=== PATIENT | male | born 1940 | race Native Hawaiian/Other Pacific Islander ===

== ENCOUNTER 2017-10-14 20:48 | Inpatient (IN) ==
[2017-11-23] MEDS ORDERED: Heparin Drip 25,000 UNIT/250 ML BAG IV.CONT PRN (15:45)
[2017-11-28] MEDS ORDERED: Haloperidol Inj 5 MG/ML Ampul IV.PUSH PRN (06:45)
[2017-11-28] MEDS ORDERED: HYDROmorphone PF Inj 0.5 MG/0.5 ML Syringe IV.PUSH PRN (06:45)
[2017-12-15] MEDS ORDERED: Warfarin Consult Pharmacy 1 EACH OTHER SCH (10:00)
[2017-12-26] MEDS ORDERED: Heparin 10,000 UNITS/10 ML Vial (for IV use) OTHER PRN (01:00)
[2017-12-26] MEDS: Insulin NovoLIN Regular Correctional Sugar Inj SQ SCH ×3 (06:23→17:33)
[2017-12-26] MEDS ORDERED: levETIRAcetam 500mg/100mL Inj 100 ML IV.SIG SCH (08:00)
[2017-12-26] MEDS: Hydrocortisone Acetate 25 MG Supp RECTAL SCH ×2 (08:54→21:39)
[2017-12-26] MEDS: Methylphenidate HCl 5 MG Tablet PO SCH ×2 (08:55→13:03)
[2017-12-26] MEDS: Chlorhexidine 0.12% Oral Kit 15 ML UDC SWISH-SPIT SCH ×4 (08:56→21:39)
[2017-12-26] MEDS: Polyethylene Glycol 3350 17 GM Packet PO SCH ×2 (08:56→15:40)
[2017-12-26] MEDS: Famotidine 20 MG Tablet PO SCH ×3 (08:57→21:40)
[2017-12-26] MEDS: Collagenase Oint 30 GM Tube TOPICAL SCH ×2 (08:58→15:42)
[2017-12-26 09:56] LABS: Hematocrit 26.3 % (39.0-51.0); Hemoglobin 8.6 gm/dL (13.0-17.0); Mean Corpuscular HGB Conc 32.5 % (32.0-36.0); Mean Corpuscular Hemoglobin 29.1 pg (27.0-34.0); Mean Corpuscular Volume 89.6 fL (80.0-100.0); Mean Platelet Volume 9.9 fL (7.0-11.0); Platelet Count 451 th/mm3 (150-450); Red Blood Count 2.94 mil/mm3 (4.50-5.90); White Blood Count 11.5 th/mm3 (4.0-11.0)
[2017-12-26 10:05] LABS: INR 1.9 Ratio; Prothrombin Time 19.3 sec (9.8-11.6)
[2017-12-26 12:30] LABS: Carbon Dioxide 25.7 meq/L (21.0-32.0); Potassium 5.5 meq/L (3.5-5.1)
[2017-12-26 12:31] LABS: Calcium 7.6 mg/dL (8.5-10.1)
--- NOTE | 2017-12-26 14:58 | P.PN ---
Subjective Interval history: Mr. Glynn had borderline tachycardia (HR ~100) with otherwise stable VS overnight. Patient would not respond to command. Discussed with patient's family; answers questioned regarding MRI imaging of brain and prior EEG Physical Exam Vital signs: Vital Signs 12/26/17 00:00 12/26/17 00:11 12/26/17 04:00 Temperature 98.2 F 98.4 F Pulse Rate 98 H 96 H 105 H Respiratory Rate 17 18 Blood Pressure 113/62 114/76 Pulse Oximetry 97 92 L 12/26/17 08:00 12/26/17 08:19 12/26/17 12:00 Temperature 97.3 F L 98.2 F Pulse Rate 112 H 100 H Respiratory Rate 14 18 Blood Pressure 110/62 114/57 L Pulse Oximetry 93 L 98 96 Intake & Output 12/25/17 12/26/17 12/26/17 18:59 06:59 18:59 Intake Total 0 / 0 100 / 100 Balance 0 / 0 100 / 100 Weight 91.8 kg 90.2 kg Intake: IV 100 / 100 Keppra 500 mg/100 mL Premix 100 100 / 100 ML @ 400 mls/hr IV.SIG Q12H EDE Rx#:[id number] Oral 0 / 0 Other: # Voids 2 # Bowel Movements 1 Narrative: GENERAL: No acute distress. CARDIOVASCULAR: Regular rate and rhythm without murmurs; normal peripheral perfusion RESPIRATORY: T piece in place. Anterior and lateral breath sounds clear. GASTROINTESTINAL: Abdomen soft, non-tender, nondistended. MUSCULOSKELETAL: 1+ pitting lower extremity edema Neuro: Noninteractive. Pupils 2-3mm; symmetric. Patient does not follow-commands SKIN: Sacral wound large; black eschar present. Scrotum is still swollen; some areas of scrotal lesions suggestive of ulceration. Patient also with several other areas of desquamation of superficial skin layers on distal RLE Results - Labs CBC & Chem 7: 12/26/17 07:26 12/26/17 07:26 Labs: Laboratory Results - last 24 hr 12/23/17 12/23/17 12/23/17 06:20 06:20 06:20 WBC 13.5 H RBC 2.73 L Hgb 7.9 L Hct 24.4 L MCV 89.2 MCH 28.8 MCHC 32.3 RDW 21.4 H Plt Count 380 MPV 9.5 PT 14.2 H INR 1.4 APTT 61.1 H D Sodium 133 L Potassium 5.1 Chloride 99 Carbon Dioxide 27.5 Anion Gap 7 BUN 32 H Creatinine 1.24 Estimated GFR 56 L POC Glucose Random Glucose 183 H Calcium 7.3 L* Prot Corrected Calcium 7.8 L Total Protein 6.1 L Stl C.difficile Tox PCR St C. diff Tox Epid 027 12/23/17 12/24/17 12/24/17 10:10 09:02 09:02 WBC 11.8 H RBC 3.18 L Hgb 9.1 L Hct 28.5 L MCV 89.7 MCH 28.6 MCHC 31.9 L RDW 21.1 H Plt Count 416 MPV 9.3 PT INR APTT Sodium 131 L Potassium 5.3 H Chloride 98 Carbon Dioxide 25.2 Anion Gap 8 BUN 34 H Creatinine 1.25 Estimated GFR 56 L POC Glucose Random Glucose 207 H Calcium 7.4 L* Prot Corrected Calcium 7.9 L Total Protein 6.1 L Stl C.difficile Tox PCR NEGATIVE St C. diff Tox Epid 027 PRESUMPTIVE NEGATIVE 12/24/17 12/24/17 12/25/17 09:02 09:02 06:33 WBC RBC Hgb Hct MCV MCH MCHC RDW Plt Count MPV PT 15.6 H 17.0 H INR 1.5 1.7 APTT 51.4 H Sodium Potassium Chloride Carbon Dioxide Anion Gap BUN Creatinine Estimated GFR POC Glucose Random Glucose Calcium Prot Corrected Calcium Total Protein Stl C.difficile Tox PCR St C. diff Tox Epid 027 12/25/17 12/25/17 12/25/17 06:33 06:33 06:33 WBC 11.9 H RBC 2.64 L Hgb 7.8 L Hct 23.6 L MCV 89.4 MCH 29.6 MCHC 33.1 RDW 20.7 H Plt Count 450 MPV 9.7 PT INR APTT 69.2 H D Sodium 132 L Potassium 4.8 Chloride 98 Carbon Dioxide 26.0 Anion Gap 8 BUN 32 H Creatinine 1.13 Estimated GFR 63 L POC Glucose Random Glucose 215 H Calcium 7.5 L Prot Corrected Calcium Total Protein Stl C.difficile Tox PCR St C. diff Tox Epid 027 12/26/17 12/26/17 12/26/17 05:42 07:26 07:26 WBC RBC Hgb Hct MCV MCH MCHC RDW Plt Count MPV PT 19.3 H INR 1.9 APTT 49.3 H Sodium Potassium Chloride Carbon Dioxide Anion Gap BUN Creatinine Estimated GFR POC Glucose 249 H Random Glucose Calcium Prot Corrected Calcium Total Protein Stl C.difficile Tox PCR St C. diff Tox Epid 027 12/26/17 12/26/17 12/26/17 07:26 07:26 13:07 WBC 11.5 H RBC 2.94 L Hgb 8.6 L Hct 26.3 L MCV 89.6 MCH 29.1 MCHC 32.5 RDW 21.0 H Plt Count 451 H MPV 9.9 PT INR APTT Sodium 131 L Potassium 5.5 H Chloride 96 L Carbon Dioxide 25.7 Anion Gap 9 BUN 32 H Creatinine 1.18 Estimated GFR 60 L POC Glucose 279 H Random Glucose 200 H Calcium 7.6 L Prot Corrected Calcium Total Protein Stl C.difficile Tox PCR St C. diff Tox Epid 027 - Imaging Imaging: EEG 12/25- diffuse theta slowing consistent with mild to moderate diffuse encephalopathy; no focal abnormalities. No seizure activity seen Brain MRI 12/24- 1. Persistent T2 prolongation and restricted diffusion involving the left corpus callosum and splenium, with no new findings. Procedures: 11/09/17 arterial line placement 11/09/17 endotracheal intubation 11/18/17 endotracheal intubation 11/20/17 EGD 12/02/17 EGD with PEG tube placement 12/02/17 percutaneous tracheostomy Assessment and Plan - Assessment (1) Encephalopathy Code(s): G93.40 - Encephalopathy, unspecified Status: Acute (2) CVA (cerebral vascular accident) Code(s): I63.9 - Cerebral infarction, unspecified Status: Acute (3) Wound of sacral region Code(s): S31.000A - Unspecified open wound of lower back and pelvis without penetration into retroperitoneum, initial encounter Status: Acute (4) NSTEMI (non-ST elevated myocardial infarction) Code(s): I21.4 - Non-ST elevation (NSTEMI) myocardial infarction Status: Resolved (5) Anemia Code(s): D64.9 - Anemia, unspecified Status: Acute (6) Respiratory failure with hypoxia and hypercapnia Code(s): J96.91 - Respiratory failure, unspecified with hypoxia; J96.92 - Respiratory failure, unspecified with hypercapnia Status: Resolved (7) Optic neuritis Code(s): H46.9 - Unspecified optic neuritis Status: Resolved - Plan In summary this is a 77-year-old male with a prolonged hospitalization for optic neuritis, ESBL E. coli UTI, sepsis, and STEMI, acute GI bleed, CVA status post systemic TPA, seizures, and acute hypoxic respiratory failure. Patient initially under ICU care; after initial improvement was transferred back to the ICU on November 18 after Halicat was called for AMS, hypoxia, and high fever. Patient has since stabilized and is being treated on Med-Surg floor for persistent encephalopathy Neuro 12/26- still nonverbal; not following commands Impression: patient with encephalopathy and new onset seizures, L [place]ID infarct. Status post systemic TPA on November 09 Repeat MRI unchanged; EEG with moderate encephalopathy -Currently on aspirin, Plavix, statin -Neuro consulted -Continue Ritalin, Keppra -Continue Heparin drip/Coumadin -Palliative care consulted -Neuropsychology consulted to assist family Optic neuritis Status post treatment with IV hydrocortisone GI Nutrition via PEG tube. Hyperglycemic recently (most glucoses in low 200's) Patient with loose stools; C diff negative -Continue sliding scale insulin Hyperkalemia Impression: K 5.5 today; some hemolysis -Will repeat (on lasix, normal renal function; suspect no need for intervention) Sepsis, UTI - ESBL E. coli +blood cultures on 10/24. Completed course of antibiotics. Urine culture on December 10 with Pseudomonas, pansensitive. Cipro stopped 12/17 -ID signed off 12/08; will plan to repeat araujo-cultures if T >101F Skin 1)Scrotal Edema/ulcerations Has been evaluated by Urology: continue with clean intermittent catheter as needed, scrotal elevation -Will notify wound care nurse to reassess scrotal area 2) Sacral wound -Seen by Plastic surgery; debridement declined per patient's family -Wound care consulted- continue Dignishield, apply dressings per wound management recommendations Respiratory Impression: Patient currently doing well on T piece; history of acute hypoxic and hypercapnic respiratory failure during hospitalization. Patient status post CT-guided thoracentesis of right-sided pleural effusion, transudative. Patient also s/p treatment for aspiration pneumonia -Patient with tracheostomy. Stable on T-piece. -Followed by Pulmonology -ID signed off Cardiac NSTEMI Echo 10/19: LV systolic function is moderately reduced, EF 40-45%. Per Cardiology the repeat echo shows similar EF not reduced as reported. HR better since we resumed Coreg. -Continue Aspirin, statin, Plavix -Cardiology following- Dr. Hernández Monitor HR and BP keep MAP>65mmHg On Cardura 2mg daily, Coreg 3.125mg BID, Lipitor 80mg qhs - Lasix 20 mg IV BID for edema Anemia GI bleed; Status post EGD colonoscopy. GI has signed off, patient with healed rectal ulcers and hemorrhoids. H&H fluctuates -Continue to monitor DVT PPX on Heparin Drip/Warfarin Discussed Condition With: Multiple family members, nursing staff (5) Anemia Qualifiers: Anemia type: unspecified type Qualified Code(s): D64.9 - Anemia, unspecified
[2017-12-27] MEDS: Insulin NovoLIN Regular Correctional Sugar Inj SQ SCH ×3 (00:42→23:52)
[2017-12-27 06:46] LABS: Baso # (Auto) 0.1 th/mm3 (0.0-0.2); Baso % (Auto) 0.4 % (0.0-2.0); Eos # (Auto) 0.1 th/mm3 (0.0-0.4); Eos % (Auto) 0.4 % (0.0-4.0); Hematocrit 25.3 % (39.0-51.0); Hemoglobin 8.3 gm/dL (13.0-17.0); Lymph # (Auto) 5.8 th/mm3 (1.0-4.8); Lymph % (Auto) 43.2 % (9.0-44.0); Mean Corpuscular HGB Conc 32.8 % (32.0-36.0); Mean Corpuscular Hemoglobin 28.9 pg (27.0-34.0); Mean Corpuscular Volume 88.1 fL (80.0-100.0); Mean Platelet Volume 8.8 fL (7.0-11.0); Mono # (Auto) 1.6 th/mm3 (0.0-0.9); Mono % (Auto) 12.1 % (0.0-8.0); Neut # (Auto) 5.8 th/mm3 (1.8-7.7); Neut % (Auto) 43.9 % (16.0-70.0); Platelet Count 467 th/mm3 (150-450); Red Blood Count 2.87 mil/mm3 (4.50-5.90); Red Cell Distribution Width 21.2 % (11.6-17.2); White Blood Count 13.3 th/mm3 (4.0-11.0)
[2017-12-27 07:07] LABS: Activated Partial Thrombo Time 67.5 sec (24.3-30.1); INR 1.8 Ratio; Prothrombin Time 18.3 sec (9.8-11.6)
[2017-12-27 07:46] LABS: Calcium 7.4 mg/dL (8.5-10.1); Carbon Dioxide 26.6 meq/L (21.0-32.0); Potassium 5.6 meq/L (3.5-5.1)
[2017-12-27] MEDS ORDERED: Warfarin Consult Pharmacy 1 EACH OTHER SCH (08:00)
[2017-12-27] MEDS: Methylphenidate HCl 5 MG Tablet PO SCH ×2 (08:39→13:25)
[2017-12-27 08:51] LABS: Total Protein 6.6 g/dL (6.4-8.2)
[2017-12-27 09:08] LABS: Lymphocytes 58 % (9-44); Metamyelocytes 1 % (0-1); Monocytes 5 % (0-8)
[2017-12-27 09:09] LABS: Acanthocytes Occ; Platelet Morphology Normal (Normal)
[2017-12-27 09:14] LABS: Smudge Cells Present
[2017-12-27] MEDS: Collagenase Oint 30 GM Tube TOPICAL SCH ×2 (09:30→22:07)
[2017-12-27] MEDS: Hydrocortisone Acetate 25 MG Supp RECTAL SCH ×2 (09:30→22:26)
[2017-12-27] MEDS: Famotidine 20 MG Tablet PO SCH ×4 (09:30→22:25)
[2017-12-27 10:37] LABS: Calcium 7.4 mg/dL (8.5-10.1); Carbon Dioxide 25.2 meq/L (21.0-32.0); Potassium 5.2 meq/L (3.5-5.1)
[2017-12-27 10:38] LABS: Total Protein 6.5 g/dL (6.4-8.2)
[2017-12-27] MEDS: Chlorhexidine 0.12% Oral Kit 15 ML UDC SWISH-SPIT SCH ×4 (12:21→22:27)
[2017-12-27] MEDS: Polyethylene Glycol 3350 17 GM Packet PO SCH ×2 (12:23→22:07)
[2017-12-27] MEDS ORDERED: Sodium Polystyrene Sulfonate/Sorbitol Liq 15 GM/60 ML UDC PO ONE (14:00)
--- NOTE | 2017-12-27 14:35 | P.PN ---
Subjective Interval history: Mr. Glynn was mildly tachycardic overnight (~HR 100); low normal BP. Patient not responsive to commands today. Discussed with patient's daughter; no changes recently in mental status. Looser bowel movements. Patient's son in law requests meeting to review care. Physical Exam Vital signs: Vital Signs 12/26/17 16:00 12/26/17 17:11 12/26/17 20:00 Temperature 98.6 F 99.4 F Pulse Rate 103 H 106 H Respiratory Rate 18 16 Blood Pressure 116/58 L 114/55 L Pulse Oximetry 95 93 L 97 12/26/17 20:28 12/27/17 00:00 12/27/17 00:31 Temperature 99.0 F Pulse Rate 78 100 H 100 H Respiratory Rate 18 16 Blood Pressure 112/55 L Pulse Oximetry 95 97 12/27/17 04:00 12/27/17 06:11 12/27/17 08:00 Temperature 99.4 F 98.5 F Pulse Rate 102 H 94 H 106 H Respiratory Rate 16 28 H Blood Pressure 115/65 105/66 Pulse Oximetry 97 95 12/27/17 12:00 Temperature 98.9 F Pulse Rate 101 H Respiratory Rate 21 Blood Pressure 93/57 L Pulse Oximetry 94 L Intake & Output 12/26/17 12/27/17 12/27/17 18:59 06:59 18:59 Intake Total 100 / 100 105 / 105 Output Total 400 / 400 Balance 100 / 100 -295 / -295 Weight 88.3 kg Intake: IV 100 / 100 105 / 105 Keppra 500 mg/100 mL Premix 100 100 / 100 ML @ 400 mls/hr IV.SIG Q12H EDE Rx#:[id number] Keppra Inj 500 MG In NS Inj 100 105 / 105 ML @ 400 mls/hr IV.SIG Q12H EDE Rx#:[id number] Output: Urine 400 / 400 Other: # Incontinent Voids 3 # Bowel Movements 0 1 Narrative: GENERAL: No acute distress. SKIN: Sacral/scrotal wounds not inspected today CARDIOVASCULAR: Regular rate and rhythm without murmurs; normal peripheral perfusion RESPIRATORY: T piece in place. Anterior and lateral breath sounds clear. GASTROINTESTINAL: Abdomen soft, non-tender, nondistended. MUSCULOSKELETAL: 1+ pitting lower extremity edema Neuro: Noninteractive. Pupils 2-3mm; symmetric. Patient does not follow-commands Results - Labs CBC & Chem 7: 12/27/17 06:10 12/27/17 06:10 Laboratory Results - last 24 hr 12/26/17 12/26/17 12/26/17 17:08 20:21 20:21 WBC RBC Hgb Hct MCV MCH MCHC RDW Plt Count MPV Prelim Diff (Auto) Neut % (Auto) Lymph % (Auto) [place] % (Auto) Eos % (Auto) Baso % (Auto) Neut # (Auto) Lymph # (Auto) [place] # (Auto) Eos # (Auto) Baso # (Auto) WBC Differential Seg Neuts % (Manual) Band Neuts % (Manual) Lymphocytes % (Manual) Monocytes % (Manual) Metamyelocytes % (Man) Abs Neuts (Manual) Differential Comment Smudge Cells Platelet Estimate Platelet Morphology Acanthocytes (Spur) PT INR APTT Sodium 129 L Potassium Saturation Diver 5.2 H Chloride Saturation Diver 94 L Carbon Dioxide Saturation Diver 25.2 Anion Gap Saturation Diver 10 BUN Saturation Diver 38 H Creatinine Saturation Diver 1.34 H Estimated GFR Saturation Diver 52 L POC Glucose 311 H Random Glucose Saturation Diver 232 H Calcium Saturation Diver 7.4 L* Prot Corrected Calcium Saturation Diver 7.7 L Total Protein Saturation Diver 6.5 12/27/17 12/27/17 12/27/17 00:40 06:10 06:10 WBC 13.3 H RBC 2.87 L Hgb 8.3 L Hct 25.3 L MCV 88.1 MCH 28.9 MCHC 32.8 RDW 21.2 H Plt Count 467 H MPV 8.8 Prelim Diff (Auto) Slide review pending Neut % (Auto) 43.9 Lymph % (Auto) 43.2 [place] % (Auto) 12.1 H Eos % (Auto) 0.4 Baso % (Auto) 0.4 Neut # (Auto) 5.8 Lymph # (Auto) 5.8 H [place] # (Auto) 1.6 H Eos # (Auto) 0.1 Baso # (Auto) 0.1 WBC Differential Manual diff final Seg Neuts % (Manual) 30 Band Neuts % (Manual) 6 Lymphocytes % (Manual) 58 H Monocytes % (Manual) 5 Metamyelocytes % (Man) 1 Abs Neuts (Manual) 4.9 Differential Comment . Smudge Cells Present H Platelet Estimate High H Platelet Morphology Normal Acanthocytes (Spur) Occ H PT 18.3 H INR 1.8 APTT 67.5 H D Sodium Potassium Chloride Carbon Dioxide Anion Gap BUN Creatinine Estimated GFR POC Glucose 253 H Random Glucose Calcium Prot Corrected Calcium Total Protein 12/27/17 12/27/17 12/27/17 06:10 06:33 12:05 WBC RBC Hgb Hct MCV MCH MCHC RDW Plt Count MPV Prelim Diff (Auto) Neut % (Auto) Lymph % (Auto) [place] % (Auto) Eos % (Auto) Baso % (Auto) Neut # (Auto) Lymph # (Auto) [place] # (Auto) Eos # (Auto) Baso # (Auto) WBC Differential Seg Neuts % (Manual) Band Neuts % (Manual) Lymphocytes % (Manual) Monocytes % (Manual) Metamyelocytes % (Man) Abs Neuts (Manual) Differential Comment Smudge Cells Platelet Estimate Platelet Morphology Acanthocytes (Spur) PT INR APTT Sodium 131 L Potassium 5.6 H Chloride 96 L Carbon Dioxide 26.6 Anion Gap 8 BUN 39 H Creatinine 1.39 H Estimated GFR 49 L POC Glucose 220 H 233 H Random Glucose 184 H Calcium 7.4 L* Prot Corrected Calcium 7.7 L Total Protein 6.6 Assessment and Plan - Assessment (1) Encephalopathy Code(s): G93.40 - Encephalopathy, unspecified Status: Acute (2) CVA (cerebral vascular accident) Code(s): I63.9 - Cerebral infarction, unspecified Status: Acute (3) Wound of sacral region Code(s): S31.000A - Unspecified open wound of lower back and pelvis without penetration into retroperitoneum, initial encounter Status: Acute (4) NSTEMI (non-ST elevated myocardial infarction) Code(s): I21.4 - Non-ST elevation (NSTEMI) myocardial infarction Status: Resolved (5) Anemia Code(s): D64.9 - Anemia, unspecified Status: Acute (6) Respiratory failure with hypoxia and hypercapnia Code(s): J96.91 - Respiratory failure, unspecified with hypoxia; J96.92 - Respiratory failure, unspecified with hypercapnia Status: Resolved (7) Optic neuritis Code(s): H46.9 - Unspecified optic neuritis Status: Resolved - Plan In summary this is a 77-year-old male with a prolonged hospitalization for optic neuritis, ESBL E. coli UTI, sepsis, and STEMI, acute GI bleed, CVA status post systemic TPA, seizures, and acute hypoxic respiratory failure. Patient initially under ICU care; after initial improvement was transferred back to the ICU on November 18 after Halicat was called for AMS, hypoxia, and high fever. Patient has since stabilized and is being treated on Med-Surg floor for persistent encephalopathy Neuro 12/26- still nonverbal; not following commands Impression: patient with encephalopathy and new onset seizures, L [place] infarct. Status post systemic TPA on November 09 Repeat MRI unchanged; EEG with moderate encephalopathy -Currently on aspirin, Plavix, statin -Neuro consulted -Continue Ritalin, Keppra -Continue Heparin drip/Coumadin -Per literature will reattempt to discuss with family about stopping anticoagulation -Palliative care consulted -Neuropsychology consulted to assist family Optic neuritis Status post treatment with IV hydrocortisone GI Nutrition via PEG tube. Hyperglycemic recently (most glucoses in low 200's) Patient with loose stools; C diff negative -Continue sliding scale insulin Hyperkalemia Impression: K 5.6 today. On KCl supplementation. Cr near baseline (Cr 1.39) -K supplementation discontinued -Kayexalate 15gm given x1 -Will monitor BMP Sepsis, UTI - ESBL E. coli +blood cultures on 10/24. Completed course of antibiotics. Urine culture on December 10 with Pseudomonas, pansensitive. Cipro stopped 12/17 -ID signed off 12/08; will plan to repeat araujo-cultures if T >101F Skin 1)Scrotal Edema/ulcerations Has been evaluated by Urology: continue with clean intermittent catheter as needed, scrotal elevation -Will notify wound care nurse to reassess scrotal area 2) Sacral wound -Seen by Plastic surgery; debridement declined per patient's family -Wound care consulted- continue Dignishield, apply dressings per wound management recommendations Respiratory Impression: Patient currently doing well on T piece; history of acute hypoxic and hypercapnic respiratory failure during hospitalization. Patient status post CT-guided thoracentesis of right-sided pleural effusion, transudative. Patient also s/p treatment for aspiration pneumonia -Patient with tracheostomy. Stable on T-piece. -Followed by Pulmonology -ID signed off Cardiac NSTEMI Echo 10/19: LV systolic function is moderately reduced, EF 40-45%. Per Cardiology the repeat echo shows similar EF not reduced as reported. HR better since we resumed Coreg. -Continue Aspirin, statin, Plavix -Cardiology following- Dr. Hernández Monitor HR and BP keep MAP>65mmHg On Cardura 2mg daily, Coreg 3.125mg BID, Lipitor 80mg qhs - Lasix 20 mg IV BID for edema Anemia GI bleed; Status post EGD colonoscopy. GI has signed off, patient with healed rectal ulcers and hemorrhoids. H&H fluctuates -Continue to monitor DVT PPX on Heparin Drip/Warfarin Discussed Condition With: Several family members Discharge Planning: Will continue to assess based on care goals of family. Per CM, patient could likely be accepted as linsey case on hospice but currently pursuing aggressive care (5) Anemia Qualifiers: Anemia type: unspecified type Qualified Code(s): D64.9 - Anemia, unspecified
[2017-12-27] MEDS: Heparin Drip 25,000 UNIT/250 ML BAG IV.CONT PRN (15:57)
--- NOTE | 2017-12-27 17:58 | P.PN ---
Subjective Interval history: UNREPONSIVE ON TTUBE Physical Exam Vital signs: Vital Signs 12/26/17 20:00 12/26/17 20:28 12/27/17 00:00 Temperature 99.4 F Pulse Rate 106 H 78 100 H Respiratory Rate 16 18 Blood Pressure 114/55 L Pulse Oximetry 97 95 12/27/17 00:31 12/27/17 04:00 12/27/17 06:11 Temperature 99.0 F 99.4 F Pulse Rate 100 H 102 H 94 H Respiratory Rate 16 16 Blood Pressure 112/55 L 115/65 Pulse Oximetry 97 97 12/27/17 08:00 12/27/17 12:00 Temperature 98.5 F 98.9 F Pulse Rate 106 H 101 H Respiratory Rate 28 H 21 Blood Pressure 105/66 93/57 L Pulse Oximetry 95 94 L Intake & Output 12/26/17 12/27/17 12/27/17 18:59 06:59 18:59 Intake Total 100 / 100 105 / 105 105 / 105 Output Total 400 / 400 Balance 100 / 100 -295 / -295 105 / 105 Weight 88.3 kg Intake: IV 100 / 100 105 / 105 105 / 105 Keppra 500 mg/100 mL Premix 100 100 / 100 ML @ 400 mls/hr IV.SIG Q12H EDE Rx#:[id number] Keppra Inj 500 MG In NS Inj 100 105 / 105 105 / 105 ML @ 400 mls/hr IV.SIG Q12H EDE Rx#:[id number] Output: Urine 400 / 400 Other: # Incontinent Voids 3 # Bowel Movements 0 1 Narrative: GENERAL: UNRESPONSIVE, TRACH IN PLACE SKIN: Warm and dry. HEAD: Atraumatic. Normocephalic. EYES: Pupils equal and round. No scleral icterus. No injection or drainage. ENT: No nasal bleeding or discharge. Mucous membranes pink and moist. NECK: Trachea midline. No JVD. CARDIOVASCULAR: Regular rate and rhythm. RESPIRATORY: No accessory muscle use. Clear to auscultation. Breath sounds equal bilaterally. GASTROINTESTINAL: Abdomen soft, non-tender, nondistended. Hepatic and splenic margins not palpable. MUSCULOSKELETAL: Extremities without clubbing, cyanosis, or edema. No obvious deformities. NEUROLOGICAL: Awake and alert. No obvious cranial nerve deficits. Motor grossly within normal limits. Five out of 5 muscle strength in the arms and legs. Normal speech. PSYCHIATRIC: Appropriate mood and affect; insight and judgment normal. Results - Labs CBC & Chem 7: 12/27/17 06:10 12/27/17 06:10 Laboratory Results - last 24 hr 12/26/17 12/26/17 12/27/17 20:21 20:21 00:40 WBC RBC Hgb Hct MCV MCH MCHC RDW Plt Count MPV Prelim Diff (Auto) Neut % (Auto) Lymph % (Auto) [place] % (Auto) Eos % (Auto) Baso % (Auto) Neut # (Auto) Lymph # (Auto) [place] # (Auto) Eos # (Auto) Baso # (Auto) WBC Differential Seg Neuts % (Manual) Band Neuts % (Manual) Lymphocytes % (Manual) Monocytes % (Manual) Metamyelocytes % (Man) Abs Neuts (Manual) Differential Comment Smudge Cells Platelet Estimate Platelet Morphology Acanthocytes (Spur) PT INR APTT Sodium 129 L Potassium Cost Recovery Technician 5.2 H Chloride Cost Recovery Technician 94 L Carbon Dioxide Cost Recovery Technician 25.2 Anion Gap Cost Recovery Technician 10 BUN Cost Recovery Technician 38 H Creatinine Cost Recovery Technician 1.34 H Estimated GFR Cost Recovery Technician 52 L POC Glucose 253 H Random Glucose Cost Recovery Technician 232 H Calcium Cost Recovery Technician 7.4 L* Prot Corrected Calcium Cost Recovery Technician 7.7 L Total Protein Cost Recovery Technician 6.5 12/27/17 12/27/17 12/27/17 06:10 06:10 06:10 WBC 13.3 H RBC 2.87 L Hgb 8.3 L Hct 25.3 L MCV 88.1 MCH 28.9 MCHC 32.8 RDW 21.2 H Plt Count 467 H MPV 8.8 Prelim Diff (Auto) Slide review pending Neut % (Auto) 43.9 Lymph % (Auto) 43.2 [place] % (Auto) 12.1 H Eos % (Auto) 0.4 Baso % (Auto) 0.4 Neut # (Auto) 5.8 Lymph # (Auto) 5.8 H [place] # (Auto) 1.6 H Eos # (Auto) 0.1 Baso # (Auto) 0.1 WBC Differential Manual diff final Seg Neuts % (Manual) 30 Band Neuts % (Manual) 6 Lymphocytes % (Manual) 58 H Monocytes % (Manual) 5 Metamyelocytes % (Man) 1 Abs Neuts (Manual) 4.9 Differential Comment . Smudge Cells Present H Platelet Estimate High H Platelet Morphology Normal Acanthocytes (Spur) Occ H PT 18.3 H INR 1.8 APTT 67.5 H D Sodium 131 L Potassium 5.6 H Chloride 96 L Carbon Dioxide 26.6 Anion Gap 8 BUN 39 H Creatinine 1.39 H Estimated GFR 49 L POC Glucose Random Glucose 184 H Calcium 7.4 L* Prot Corrected Calcium 7.7 L Total Protein 6.6 12/27/17 12/27/17 06:33 12:05 WBC RBC Hgb Hct MCV MCH MCHC RDW Plt Count MPV Prelim Diff (Auto) Neut % (Auto) Lymph % (Auto) [place] % (Auto) Eos % (Auto) Baso % (Auto) Neut # (Auto) Lymph # (Auto) [place] # (Auto) Eos # (Auto) Baso # (Auto) WBC Differential Seg Neuts % (Manual) Band Neuts % (Manual) Lymphocytes % (Manual) Monocytes % (Manual) Metamyelocytes % (Man) Abs Neuts (Manual) Differential Comment Smudge Cells Platelet Estimate Platelet Morphology Acanthocytes (Spur) PT INR APTT Sodium Potassium Chloride Carbon Dioxide Anion Gap BUN Creatinine Estimated GFR POC Glucose 220 H 233 H Random Glucose Calcium Prot Corrected Calcium Total Protein Assessment and Plan - Plan CONTINUE O2 PULM TOILET OUTLOOK POOR
[2017-12-28] MEDS: Insulin NovoLIN Regular Correctional Sugar Inj SQ SCH ×2 (06:37→15:08)
[2017-12-28] MEDS: Methylphenidate HCl 5 MG Tablet PO SCH ×2 (08:49→13:43)
[2017-12-28] MEDS: Hydrocortisone Acetate 25 MG Supp RECTAL SCH ×2 (08:50→21:19)
[2017-12-28] MEDS: Chlorhexidine 0.12% Oral Kit 15 ML UDC SWISH-SPIT SCH (09:09)
[2017-12-28] MEDS: Polyethylene Glycol 3350 17 GM Packet PO SCH (09:10)
[2017-12-28] MEDS: Famotidine 20 MG Tablet PO SCH ×2 (09:10→21:18)
[2017-12-28] MEDS: Collagenase Oint 30 GM Tube TOPICAL SCH (09:10)
[2017-12-28 09:46] LABS: Activated Partial Thrombo Time 55.9 sec (24.3-30.1); INR 1.8 Ratio; Prothrombin Time 18.4 sec (9.8-11.6)
[2017-12-28 10:07] LABS: Calcium 7.3 mg/dL (8.5-10.1); Carbon Dioxide 26.9 meq/L (21.0-32.0); Potassium 5.5 meq/L (3.5-5.1)
[2017-12-28 10:29] LABS: Total Protein 6.7 g/dL (6.4-8.2)
--- NOTE | 2017-12-28 16:27 | P.PN ---
Subjective Interval history: Mr. Glynn was afebrile with borderline tachycardia overnight (HR ~100); O2 saturations in low 90's. Patient has not been responsive to command and has continued to be somnolent today. Patient's daughter expresses desire to have patient sit upright more and has concerns regarding medications causing sedation; she understands that her dad has a poor medical prognosis but would like to maximize any potential chance at recovery. Physical Exam Vital signs: Vital Signs 12/27/17 20:00 12/27/17 21:29 12/27/17 23:49 Temperature 100.0 F H Pulse Rate 100 H 100 H 102 H Respiratory Rate 19 18 Blood Pressure 130/61 Pulse Oximetry 97 12/28/17 00:00 12/28/17 04:00 12/28/17 08:00 Temperature 98.9 F 99.6 F 98.7 F Pulse Rate 102 H 105 H 103 H Respiratory Rate 19 18 20 Blood Pressure 141/63 H 151/64 H 115/55 L Pulse Oximetry 97 96 97 12/28/17 08:26 12/28/17 12:00 Temperature 98.3 F Pulse Rate 84 103 H Respiratory Rate 21 24 Blood Pressure 111/62 Pulse Oximetry 92 L Intake & Output 12/27/17 12/28/17 12/28/17 18:59 06:59 18:59 Intake Total 105 / 105 105 / 105 105 / 105 Output Total 775 / 775 1000 / 1000 Balance -670 / -670 -895 / -895 105 / 105 Weight 89.1 kg Intake: IV 105 / 105 105 / 105 105 / 105 Keppra Inj 500 MG In NS Inj 100 105 / 105 105 / 105 105 / 105 ML @ 400 mls/hr IV.SIG Q12H EDE Rx#:[id number] Output: Urine 775 / 775 1000 / 1000 Other: Date of Last Bowel Movement 12/27/17 12/27/17 12/28/17 # Incontinent Bowel Movements 3 3 Narrative: GENERAL: sleeping n bed SKIN: Sacral/scrotal wounds not inspected today CARDIOVASCULAR: Regular rate and rhythm without murmurs; normal peripheral perfusion RESPIRATORY: T piece in place. Anterior and lateral breath sounds clear. GASTROINTESTINAL: Abdomen soft, non-tender, nondistended. MUSCULOSKELETAL: No lower extremity edema appreciated Neuro: Noninteractive. Pupils 2-3mm; symmetric. Patient does not follow-commands Results - Labs CBC & Chem 7: 12/27/17 06:10 12/28/17 09:16 Laboratory Results - last 24 hr 12/27/17 12/27/17 12/27/17 17:28 18:35 23:47 PT INR APTT 59.7 H Sodium Potassium Chloride Carbon Dioxide Anion Gap BUN Creatinine Estimated GFR POC Glucose 269 H 322 H Random Glucose Calcium Prot Corrected Calcium Total Protein 12/28/17 12/28/17 12/28/17 00:46 06:30 09:16 PT INR APTT 59.9 H Sodium 130 L Potassium 5.5 H Chloride 94 L Carbon Dioxide 26.9 Anion Gap 9 BUN 42 H Creatinine 1.47 H Estimated GFR 46 L POC Glucose 293 H Random Glucose 239 H Calcium 7.3 L* Prot Corrected Calcium 7.5 L Total Protein 6.7 12/28/17 09:16 PT 18.4 H INR 1.8 APTT 55.9 H Sodium Potassium Chloride Carbon Dioxide Anion Gap BUN Creatinine Estimated GFR POC Glucose Random Glucose Calcium Prot Corrected Calcium Total Protein - Imaging MRI brain 12/24- persistent T2 prolongation and restricted diffusion of L corpus callosum/splenium; no new findings Assessment and Plan - Assessment (1) Encephalopathy Code(s): G93.40 - Encephalopathy, unspecified Status: Acute (2) CVA (cerebral vascular accident) Code(s): I63.9 - Cerebral infarction, unspecified Status: Acute (3) Wound of sacral region Code(s): S31.000A - Unspecified open wound of lower back and pelvis without penetration into retroperitoneum, initial encounter Status: Acute (4) NSTEMI (non-ST elevated myocardial infarction) Code(s): I21.4 - Non-ST elevation (NSTEMI) myocardial infarction Status: Resolved (5) Anemia Code(s): D64.9 - Anemia, unspecified Status: Acute (6) Respiratory failure with hypoxia and hypercapnia Code(s): J96.91 - Respiratory failure, unspecified with hypoxia; J96.92 - Respiratory failure, unspecified with hypercapnia Status: Resolved (7) Optic neuritis Code(s): H46.9 - Unspecified optic neuritis Status: Resolved - Plan In summary this is a 77-year-old male with a prolonged hospitalization for optic neuritis, ESBL E. coli UTI, sepsis, and STEMI, acute GI bleed, CVA status post systemic TPA, seizures, and acute hypoxic respiratory failure. Patient initially under ICU care; after initial improvement was transferred back to the ICU on November 18 after Halicat was called for AMS, hypoxia, and high fever. Patient has since stabilized and is being treated on Med-Surg floor for persistent encephalopathy Neuro 12/26- still nonverbal; not following commands Impression: patient with encephalopathy and new onset seizures, L ENID infarct. Status post systemic TPA on November 09 Repeat MRI unchanged; EEG with moderate encephalopathy -Currently on aspirin, Plavix, statin -Neuro consulted -Continue Ritalin, Keppra -Continue Heparin drip/Coumadin -EMR reviewed further, will reattempt to discuss with family about stopping anticoagulation -Palliative care consulted -Neuropsychology consulted to assist family Optic neuritis Status post treatment with IV hydrocortisone GI Nutrition via PEG tube. Hyperglycemic recently (most glucoses in low 200's) Patient with loose stools; C diff negative -Continue sliding scale insulin Hyperkalemia Impression: K 5.5 today. Cr elevated (Cr 1.47). Was on K supplementation -K supplementation discontinued -Consider additional Kayexalate 15gm -Will monitor BMP JULEE Impression: K 1.39 (12/27) -> 1.47 (12/28) in association with Lasix 20mg IV BID; on tube feedings. Suspect from diuresis -Will hold lasix since exam not suggestive of fluid overload -Will consider IVF based on tomorrow's BMP Sepsis, UTI - ESBL E. coli +blood cultures on 10/24. Completed course of antibiotics. Urine culture on December 10 with Pseudomonas, pansensitive. Cipro stopped 12/17 -ID signed off 12/08; will plan to repeat araujo-cultures if T >101F Skin 1)Scrotal Edema/ulcerations Has been evaluated by Urology: continue with clean intermittent catheter as needed, scrotal elevation -Will notify wound care nurse to reassess scrotal area 2) Sacral wound -Seen by Plastic surgery; debridement declined per patient's family -Wound care consulted- continue Dignishield, apply dressings per wound management recommendations Respiratory Impression: Patient currently doing well on T piece; history of acute hypoxic and hypercapnic respiratory failure during hospitalization. Patient status post CT-guided thoracentesis of right-sided pleural effusion, transudative. Patient also s/p treatment for aspiration pneumonia -Patient with tracheostomy. Stable on T-piece. -Followed by Pulmonology -ID signed off Cardiac NSTEMI Echo 10/19: LV systolic function is moderately reduced, EF 40-45%. Per Cardiology the repeat echo shows similar EF not reduced as reported. HR better since we resumed Coreg. -Continue Aspirin, statin, Plavix -Cardiology following- Dr. Hernández Monitor HR and BP keep MAP>65mmHg On Cardura 2mg daily, Coreg 3.125mg BID, Lipitor 80mg qhs - Hold Lasix 20 mg IV BID for JULEE Anemia GI bleed; Status post EGD colonoscopy. GI has signed off, patient with healed rectal ulcers and hemorrhoids. H&H fluctuates -Continue to monitor DVT PPX on Heparin Drip/Warfarin Discharge Planning: Will continue to assess based on care goals of family. Per CM, patient could likely be accepted as linsey case on hospice but currently pursuing aggressive care (5) Anemia Qualifiers: Anemia type: unspecified type Qualified Code(s): D64.9 - Anemia, unspecified
[2017-12-28] MEDS ORDERED: Sodium Polystyrene Sulfonate/Sorbitol Liq 15 GM/60 ML UDC PO ONE (18:00)
--- NOTE | 2017-12-28 18:47 | P.PN ---
Subjective Interval history: unresponsive trach in place on o2 Physical Exam Vital signs: Vital Signs 12/27/17 20:00 12/27/17 21:29 12/27/17 23:49 Temperature 100.0 F H Pulse Rate 100 H 100 H 102 H Respiratory Rate 19 18 Blood Pressure 130/61 Pulse Oximetry 97 12/28/17 00:00 12/28/17 04:00 12/28/17 08:00 Temperature 98.9 F 99.6 F 98.7 F Pulse Rate 102 H 105 H 103 H Respiratory Rate 19 18 20 Blood Pressure 141/63 H 151/64 H 115/55 L Pulse Oximetry 97 96 97 12/28/17 08:26 12/28/17 12:00 12/28/17 16:00 Temperature 98.3 F 97.8 F Pulse Rate 84 103 H 72 Respiratory Rate 21 24 18 Blood Pressure 111/62 94/62 L Pulse Oximetry 92 L 94 L 12/28/17 17:42 Temperature 98.3 F Pulse Rate 103 H Respiratory Rate 24 Blood Pressure 111/62 Pulse Oximetry 92 L Intake & Output 12/27/17 12/28/17 12/28/17 18:59 06:59 18:59 Intake Total 105 / 105 105 / 105 105 / 105 Output Total 775 / 775 1000 / 1000 Balance -670 / -670 -895 / -895 105 / 105 Weight 89.1 kg Intake: IV 105 / 105 105 / 105 105 / 105 Keppra Inj 500 MG In NS Inj 100 105 / 105 105 / 105 105 / 105 ML @ 400 mls/hr IV.SIG Q12H EDE Rx#:[id number] Output: Urine 775 / 775 1000 / 1000 Other: Date of Last Bowel Movement 12/27/17 12/27/17 12/28/17 # Incontinent Bowel Movements 3 3 Narrative: GENERAL: UNRESPONSIVE, TRACH IN PLACE SKIN: Warm and dry. HEAD: Atraumatic. Normocephalic. EYES: Pupils equal and round. No scleral icterus. No injection or drainage. ENT: No nasal bleeding or discharge. Mucous membranes pink and moist. NECK: Trachea midline. No JVD. CARDIOVASCULAR: Regular rate and rhythm. RESPIRATORY: No accessory muscle use. Clear to auscultation. Breath sounds equal bilaterally. GASTROINTESTINAL: Abdomen soft, non-tender, nondistended. Hepatic and splenic margins not palpable. MUSCULOSKELETAL: Extremities without clubbing, cyanosis, or edema. No obvious deformities. NEUROLOGICAL: Awake and alert. No obvious cranial nerve deficits. Motor grossly within normal limits. Five out of 5 muscle strength in the arms and legs. Normal speech. PSYCHIATRIC: Appropriate mood and affect; insight and judgment normal. Results - Labs CBC & Chem 7: 12/27/17 06:10 12/28/17 09:16 Laboratory Results - last 24 hr 12/27/17 12/27/17 12/28/17 18:35 23:47 00:46 PT INR APTT 59.9 H Sodium Potassium Chloride Carbon Dioxide Anion Gap BUN Creatinine Estimated GFR POC Glucose 269 H 322 H Random Glucose Calcium Prot Corrected Calcium Total Protein 12/28/17 12/28/17 12/28/17 06:30 09:16 09:16 PT 18.4 H INR 1.8 APTT 55.9 H Sodium 130 L Potassium 5.5 H Chloride 94 L Carbon Dioxide 26.9 Anion Gap 9 BUN 42 H Creatinine 1.47 H Estimated GFR 46 L POC Glucose 293 H Random Glucose 239 H Calcium 7.3 L* Prot Corrected Calcium 7.5 L Total Protein 6.7 Assessment and Plan - Plan alterd mentel staus cva cad respiratory failure post trach plan CONTINUE O2 PULM TOILET OUTLOOK POOR
[2017-12-28] MEDS: Heparin Drip 25,000 UNIT/250 ML BAG IV.CONT PRN (21:27)
[2017-12-29] MEDS: Insulin NovoLIN Regular Correctional Sugar Inj SQ SCH ×6 (00:18→18:06)
[2017-12-29 06:28] LABS: Baso # (Auto) 0.1 th/mm3 (0.0-0.2); Baso % (Auto) 0.5 % (0.0-2.0); Eos % (Auto) 0.2 % (0.0-4.0); Hematocrit 23.8 % (39.0-51.0); Hemoglobin 7.7 gm/dL (13.0-17.0); Lymph # (Auto) 3.7 th/mm3 (1.0-4.8); Lymph % (Auto) 34.5 % (9.0-44.0); Mean Corpuscular HGB Conc 32.4 % (32.0-36.0); Mean Corpuscular Hemoglobin 29.1 pg (27.0-34.0); Mean Corpuscular Volume 89.8 fL (80.0-100.0); Mean Platelet Volume 9.2 fL (7.0-11.0); Mono # (Auto) 1.7 th/mm3 (0.0-0.9); Mono % (Auto) 15.5 % (0.0-8.0); Neut # (Auto) 5.3 th/mm3 (1.8-7.7); Neut % (Auto) 49.3 % (16.0-70.0); Platelet Count 499 th/mm3 (150-450); Red Blood Count 2.65 mil/mm3 (4.50-5.90); Red Cell Distribution Width 21.7 % (11.6-17.2); White Blood Count 10.7 th/mm3 (4.0-11.0)
[2017-12-29 06:37] LABS: INR 1.8 Ratio
[2017-12-29 06:56] LABS: Calcium 7.9 mg/dL (8.5-10.1); Carbon Dioxide 25.8 meq/L (21.0-32.0); Potassium 5.6 meq/L (3.5-5.1)
[2017-12-29] MEDS ORDERED: Sodium Polystyrene Sulfonate/Sorbitol Liq 15 GM/60 ML UDC PO ONE (08:45)
[2017-12-29] MEDS: Famotidine 20 MG Tablet PO SCH (08:51)
--- NOTE | 2017-12-29 09:51 | P.PNWCN ---
Wound/Pressure Injury - Patient Status Premedicated for Pain Prior to Dressing Change: No - Wound Sacrum Wound Staging: Unstageable Wound Assessment: Ongoing Wound Type: Pressure Injury Is This a Chronic Wound: Yes Requested from Provider a Wound Care Consult: No Length: 8.7 Width: 9.1 Wound Bed Appearance: Edematous, Necrotic, Red, Yellow Surrounding Tissue Appearance: Erythema Surrounding Tissue Temperature: Warm Drainage Description: Serosanguinous Drainage Amount: Scant Drainage Odor: No Odor Dressing Status: Changed Cleansing Solution: Saline Topical: Enzymatic Debridement Ointment Primary Dressing: Gauze Pad Cover Dressing: Adhesive Dressing Wound Dressing Change Date: 12/28/17 Scrotum Wound Assessment: Ongoing Wound Type: Maceration Is This a Chronic Wound: Yes Requested from Provider a Wound Care Consult: No Wound Bed Appearance: Toco Surrounding Tissue Appearance: Edematous Surrounding Tissue Temperature: Warm Drainage Description: Serous Drainage Amount: Scant Drainage Odor: No Odor Dressing Status: Changed Cleansing Solution: Saline Topical: Calazime cream Wound Dressing Change Date: 12/28/17 Incision - Patient Status Premedicated for Pain Prior to Dressing Change: No
--- NOTE | 2017-12-29 10:26 | P.PN ---
Subjective Interval history: Mr. Glynn was afebrile with stable VS overnight; intermittent borderline tachycardia. Per I/O, patient with negative balance -3040. Patient did not awaken or respond to command today. Physical Exam Vital signs: Vital Signs 12/28/17 12:00 12/28/17 16:00 12/28/17 17:42 Temperature 98.3 F 97.8 F 98.3 F Pulse Rate 103 H 72 103 H Respiratory Rate 24 18 24 Blood Pressure 111/62 94/62 L 111/62 Pulse Oximetry 92 L 94 L 92 L 12/28/17 20:00 12/28/17 20:13 12/28/17 20:21 Temperature 98.3 F Pulse Rate 103 H Respiratory Rate 18 Blood Pressure 104/68 Pulse Oximetry 99 94 L 94 L 12/29/17 00:00 12/29/17 01:28 12/29/17 01:32 Temperature 98.8 F Pulse Rate 110 H 111 H Respiratory Rate Blood Pressure 112/73 Pulse Oximetry 99 12/29/17 04:32 12/29/17 04:34 12/29/17 09:02 Temperature 98.7 F Pulse Rate 105 H 106 H 90 Respiratory Rate 18 Blood Pressure 115/71 Pulse Oximetry 99 Intake & Output 12/28/17 12/29/17 12/29/17 18:59 06:59 18:59 Intake Total 1305 / 1305 250 / 250 Balance 1305 / 1305 250 / 250 Weight 88.3 kg Intake: IV 105 / 105 250 / 250 Heparin/D5W 25,000 U/250 mL 25, 250 / 250 000 unit In 250 ml @ Per Protocol IV.CONT TITRATE PRN Rx #:[id number] Keppra Inj 500 MG In NS Inj 100 105 / 105 ML @ 400 mls/hr IV.SIG Q12H EDE Rx#:[id number] Tube Feeding 700 / 700 Water Bolus Amount 500 / 500 Other: # Voids 2 Date of Last Bowel Movement 12/28/17 12/28/17 # Bowel Movements 2 Narrative: GENERAL: sleeping in bed SKIN: Sacral/scrotal wounds not inspected today CARDIOVASCULAR: Regular rate and rhythm without murmurs; normal peripheral perfusion RESPIRATORY: T piece in place. Anterior and lateral breath sounds clear. GASTROINTESTINAL: Abdomen soft, non-tender, nondistended. MUSCULOSKELETAL: No lower extremity edema appreciated Neuro: Noninteractive. Pupils 2-3mm; symmetric. Patient does not follow-commands Results - Labs CBC & Chem 7: 12/29/17 05:36 12/29/17 05:36 Laboratory Results - last 24 hr 12/28/17 12/29/17 12/29/17 09:16 00:06 05:36 WBC RBC Hgb Hct MCV MCH MCHC RDW Plt Count MPV Neut % (Auto) Lymph % (Auto) [place] % (Auto) Eos % (Auto) Baso % (Auto) Neut # (Auto) Lymph # (Auto) [place] # (Auto) Eos # (Auto) Baso # (Auto) WBC Differential Differential Comment PT 18.0 H INR 1.8 Sodium Potassium Chloride Carbon Dioxide Anion Gap BUN Creatinine Estimated GFR POC Glucose 361 H Random Glucose Calcium Prot Corrected Calcium 7.5 L Total Protein 6.7 12/29/17 12/29/17 12/29/17 05:36 05:36 05:45 WBC 10.7 RBC 2.65 L Hgb 7.7 L Hct 23.8 L MCV 89.8 MCH 29.1 MCHC 32.4 RDW 21.7 H Plt Count 499 H MPV 9.2 Neut % (Auto) 49.3 Lymph % (Auto) 34.5 [place] % (Auto) 15.5 H Eos % (Auto) 0.2 Baso % (Auto) 0.5 Neut # (Auto) 5.3 Lymph # (Auto) 3.7 [place] # (Auto) 1.7 H Eos # (Auto) 0.0 Baso # (Auto) 0.1 WBC Differential . Differential Comment Auto diff final PT INR Sodium 130 L Potassium 5.6 H Chloride 94 L Carbon Dioxide 25.8 Anion Gap 10 BUN 47 H Creatinine 1.63 H Estimated GFR 41 L POC Glucose 383 H Random Glucose 318 H Calcium 7.9 L Prot Corrected Calcium Total Protein Assessment and Plan - Assessment (1) Encephalopathy Code(s): G93.40 - Encephalopathy, unspecified Status: Acute (2) CVA (cerebral vascular accident) Code(s): I63.9 - Cerebral infarction, unspecified Status: Acute (3) Wound of sacral region Code(s): S31.000A - Unspecified open wound of lower back and pelvis without penetration into retroperitoneum, initial encounter Status: Acute (4) NSTEMI (non-ST elevated myocardial infarction) Code(s): I21.4 - Non-ST elevation (NSTEMI) myocardial infarction Status: Resolved (5) Anemia Code(s): D64.9 - Anemia, unspecified Status: Acute (6) Respiratory failure with hypoxia and hypercapnia Code(s): J96.91 - Respiratory failure, unspecified with hypoxia; J96.92 - Respiratory failure, unspecified with hypercapnia Status: Resolved (7) Optic neuritis Code(s): H46.9 - Unspecified optic neuritis Status: Resolved - Plan In summary this is a 77-year-old male with a prolonged hospitalization for optic neuritis, ESBL E. coli UTI, sepsis, and STEMI, acute GI bleed, CVA status post systemic TPA, seizures, and acute hypoxic respiratory failure. Patient initially under ICU care; after initial improvement was transferred back to the ICU on November 18 after Halicat was called for AMS, hypoxia, and high fever. Patient has since stabilized and is being treated on Med-Surg floor for persistent encephalopathy Neuro 12/26- still nonverbal; not following commands Impression: patient with encephalopathy and new onset seizures, L ENID infarct. Status post systemic TPA on November 09 Repeat MRI unchanged; EEG with moderate encephalopathy -Currently on aspirin, Plavix, statin -Neuro consulted -Continue Ritalin, Keppra -Continue Heparin drip/Coumadin -EMR reviewed further, will reattempt to discuss with family about stopping anticoagulation -Palliative care consulted -Neuropsychology consulted to assist family Optic neuritis Status post treatment with IV hydrocortisone GI Nutrition via PEG tube. Hyperglycemic recently (most glucoses in low 200's) Patient with loose stools; C diff negative -Continue sliding scale insulin Hyperkalemia Impression: K 5.6 today. Cr increasing. Was on K supplementation -K supplementation discontinued -Will give additional Kayexalate 15gm -Will monitor BMP JULEE Impression: K 1.39 (12/27) -> 1.47 (12/28) -> 1.63 today in association with Lasix 20mg IV BID; on tube feedings. Suspect from diuresis; no new meds -lasix held -Will start mild IVF -Will trend BMP Sepsis, UTI - ESBL E. coli +blood cultures on 10/24. Completed course of antibiotics. Urine culture on December 10 with Pseudomonas, pansensitive. Cipro stopped 12/17 -ID signed off 12/08; will plan to repeat araujo-cultures if T >101F Skin 1)Scrotal Edema/ulcerations Has been evaluated by Urology: continue with clean intermittent catheter as needed, scrotal elevation -Will notify wound care nurse to reassess scrotal area 2) Sacral wound -Seen by Plastic surgery; debridement declined per patient's family -Wound care consulted- continue Dignishield, apply dressings per wound management recommendations Respiratory Impression: Patient currently doing well on T piece; history of acute hypoxic and hypercapnic respiratory failure during hospitalization. Patient status post CT-guided thoracentesis of right-sided pleural effusion, transudative. Patient also s/p treatment for aspiration pneumonia -Patient with tracheostomy. Stable on T-piece. -Followed by Pulmonology -ID signed off Cardiac NSTEMI Echo 10/19: LV systolic function is moderately reduced, EF 40-45%. Per Cardiology the repeat echo shows similar EF not reduced as reported. HR better since we resumed Coreg. -Continue Aspirin, statin, Plavix -Cardiology following- Dr. Hernández Monitor HR and BP keep MAP>65mmHg On Cardura 2mg daily, Coreg 3.125mg BID, Lipitor 80mg qhs - Hold Lasix 20 mg IV BID for JULEE Anemia GI bleed; Status post EGD colonoscopy. GI has signed off, patient with healed rectal ulcers and hemorrhoids. H&H fluctuates -Continue to monitor DVT PPX on Heparin Drip/Warfarin Discharge Planning: Will continue to assess based on care goals of family. Per CM, patient could likely be accepted as linsey case on hospice but currently pursuing aggressive care (5) Anemia Qualifiers: Anemia type: unspecified type Qualified Code(s): D64.9 - Anemia, unspecified
[2017-12-29] MEDS: Hydrocortisone Acetate 25 MG Supp RECTAL SCH (12:39)
[2017-12-29] MEDS: Chlorhexidine 0.12% Oral Kit 15 ML UDC SWISH-SPIT SCH (12:39)
[2017-12-29] MEDS: Methylphenidate HCl 5 MG Tablet PO SCH ×2 (12:40→15:37)
[2017-12-29] MEDS: Sod Chloride 0.9% Inj 1,000 ML IV.CONT SCH (12:40)
[2017-12-29] MEDS: Collagenase Oint 30 GM Tube TOPICAL SCH (14:20)
[2017-12-29] MEDS: Polyethylene Glycol 3350 17 GM Packet PO SCH (15:36)
[2017-12-29 21:42] LABS: Hematocrit 23.3 % (39.0-51.0); Hemoglobin 7.6 gm/dL (13.0-17.0); Mean Corpuscular HGB Conc 32.6 % (32.0-36.0); Mean Corpuscular Hemoglobin 29.1 pg (27.0-34.0); Mean Corpuscular Volume 89.3 fL (80.0-100.0); Mean Platelet Volume 8.8 fL (7.0-11.0); Platelet Count 454 th/mm3 (150-450); Red Blood Count 2.61 mil/mm3 (4.50-5.90); Red Cell Distribution Width 21.1 % (11.6-17.2); White Blood Count 9.8 th/mm3 (4.0-11.0)
[2017-12-29 22:36] LABS: Calcium 7.9 mg/dL (8.5-10.1); Carbon Dioxide 26.6 meq/L (21.0-32.0); Potassium 4.6 meq/L (3.5-5.1)
[2017-12-30] MEDS: Insulin NovoLIN Regular Correctional Sugar Inj SQ SCH ×4 (00:37→17:43)
[2017-12-30] MEDS: Sod Chloride 0.9% Inj 1,000 ML IV.CONT SCH (02:54)
[2017-12-30 06:12] LABS: Activated Partial Thrombo Time 44.8 sec (24.3-30.1); Prothrombin Time 19.8 sec (9.8-11.6)
[2017-12-30 06:23] LABS: Calcium 8.1 mg/dL (8.5-10.1); Carbon Dioxide 25.9 meq/L (21.0-32.0); Potassium 4.8 meq/L (3.5-5.1)
[2017-12-30 06:25] LABS: Baso % (Auto) 0.3 % (0.0-2.0); Eos % (Auto) 0.5 % (0.0-4.0); Hematocrit 24.5 % (39.0-51.0); Hemoglobin 8.2 gm/dL (13.0-17.0); Lymph # (Auto) 3.1 th/mm3 (1.0-4.8); Lymph % (Auto) 30.9 % (9.0-44.0); Mean Corpuscular HGB Conc 33.4 % (32.0-36.0); Mean Corpuscular Hemoglobin 30.1 pg (27.0-34.0); Mean Corpuscular Volume 90.3 fL (80.0-100.0); Mean Platelet Volume 9.1 fL (7.0-11.0); Mono # (Auto) 1.4 th/mm3 (0.0-0.9); Mono % (Auto) 13.7 % (0.0-8.0); Neut # (Auto) 5.5 th/mm3 (1.8-7.7); Neut % (Auto) 54.6 % (16.0-70.0); Platelet Count 480 th/mm3 (150-450); Red Blood Count 2.72 mil/mm3 (4.50-5.90); Red Cell Distribution Width 20.9 % (11.6-17.2); White Blood Count 10.2 th/mm3 (4.0-11.0)
--- NOTE | 2017-12-30 06:53 | XR ---
EXAM DATE: 12/30/2017 6:47 AM EDT AGE/SEX: 77 years / Male INDICATIONS: Congestion, short of breath CLINICAL DATA: This is the patient's subsequent encounter. Patient reports that signs and symptoms h ave been present for 2 weeks and indicates a pain score of Nonresponsive. MEDICAL/SURGICAL HISTORY: Diabetes. Cardiovascular disease. Hypertension. Coronary artery cristhian nt. tracheostomy COMPARISON: [facility] – [place], CHEST SINGLE AP, 12/21/2017. . FINDINGS: There is persistent hazy opacity in the mid and lower lungs bilaterally with loss of delineation of b oth heart borders and both hemidiaphragms. The opacity is due to a combination of lower lung consolid ation and pleural effusions. The heart is stable in size. Tracheostomy in place. CONCLUSION: Stable severity bilateral mid and lower lung pleural effusions and consolidation. Electronically signed by: Reid Atkins MD 12/30/2017 6:52 AM EDT
--- NOTE | 2017-12-30 09:17 | P.PN ---
Subjective Interval history: unreponsive trach in plsce Physical Exam Vital signs: Vital Signs 12/29/17 12:00 12/29/17 16:00 12/29/17 19:39 Temperature 98.2 F 97.3 F L Pulse Rate 102 H 99 H Respiratory Rate 22 18 Blood Pressure 108/62 117/71 Pulse Oximetry 98 95 95 12/29/17 19:41 12/29/17 20:00 12/30/17 00:00 Temperature 97.4 F L 97.4 F L Pulse Rate 99 H 106 H 103 H Respiratory Rate 18 18 24 Blood Pressure 122/58 L 110/58 L Pulse Oximetry 94 L 96 12/30/17 04:00 12/30/17 08:00 12/30/17 08:53 Temperature 98 F 98.5 F Pulse Rate 105 H 106 H 110 H Respiratory Rate 20 30 H 18 Blood Pressure 105/71 123/64 Pulse Oximetry 93 L 93 L 92 L Intake & Output 12/29/17 12/30/17 12/30/17 18:59 06:59 18:59 Intake Total 105 / 105 2912 / 2912 Output Total 850 / 850 Balance 105 / 105 2062 / 2062 Weight 88.9 kg Intake: IV 105 / 105 1000 / 1000 NS Inj 1,000 ML @ 84 mls/hr IV. 1000 / 1000 CONT .[id number] EDE Rx#:[id number] Keppra Inj 500 MG In NS Inj 100 105 / 105 ML @ 400 mls/hr IV.SIG Q12H EDE Rx#:[id number] Tube Feeding 1352 / 1352 Tube Irrigant 60 / 60 Water Bolus Amount 500 / 500 Output: Urine 850 / 850 Other: # Voids 1 # Incontinent Voids 4 # Bowel Movements 1 Narrative: GENERAL: sleeping in bed SKIN: Sacral/scrotal wounds not inspected today CARDIOVASCULAR: Regular rate and rhythm without murmurs; normal peripheral perfusion RESPIRATORY: T piece in place. Anterior and lateral breath sounds clear. GASTROINTESTINAL: Abdomen soft, non-tender, nondistended. MUSCULOSKELETAL: No lower extremity edema appreciated Neuro: Noninteractive. Pupils 2-3mm; symmetric. Patient does not follow-commands Results - Labs CBC & Chem 7: 12/30/17 05:05 12/30/17 05:05 Laboratory Results - last 24 hr 12/29/17 12/29/17 12/29/17 12:22 12:58 18:00 WBC RBC Hgb Hct MCV MCH MCHC RDW Plt Count MPV Neut % (Auto) Lymph % (Auto) [place] % (Auto) Eos % (Auto) Baso % (Auto) Neut # (Auto) Lymph # (Auto) [place] # (Auto) Eos # (Auto) Baso # (Auto) WBC Differential Differential Comment PT INR APTT 44.1 H D Sodium Potassium Chloride Carbon Dioxide Anion Gap BUN Creatinine Estimated GFR POC Glucose 352 H 335 H Random Glucose Calcium 12/29/17 12/29/17 12/29/17 21:12 21:50 23:49 WBC 9.8 RBC 2.61 L Hgb 7.6 L Hct 23.3 L MCV 89.3 MCH 29.1 MCHC 32.6 RDW 21.1 H Plt Count 454 H MPV 8.8 Neut % (Auto) Lymph % (Auto) [place] % (Auto) Eos % (Auto) Baso % (Auto) Neut # (Auto) Lymph # (Auto) [place] # (Auto) Eos # (Auto) Baso # (Auto) WBC Differential Differential Comment PT INR APTT Sodium 132 L Potassium 4.6 D Chloride 95 L Carbon Dioxide 26.6 Anion Gap 10 BUN 49 H Creatinine 1.54 H Estimated GFR 44 L POC Glucose 254 H Random Glucose 245 H Calcium 7.9 L 12/30/17 12/30/17 12/30/17 05:05 05:05 05:05 WBC 10.2 RBC 2.72 L Hgb 8.2 L Hct 24.5 L MCV 90.3 MCH 30.1 MCHC 33.4 RDW 20.9 H Plt Count 480 H MPV 9.1 Neut % (Auto) 54.6 Lymph % (Auto) 30.9 [place] % (Auto) 13.7 H Eos % (Auto) 0.5 Baso % (Auto) 0.3 Neut # (Auto) 5.5 Lymph # (Auto) 3.1 [place] # (Auto) 1.4 H Eos # (Auto) 0.0 Baso # (Auto) 0.0 WBC Differential . Differential Comment Auto diff final PT 19.8 H INR 2.0 APTT 44.8 H Sodium 132 L Potassium 4.8 Chloride 94 L Carbon Dioxide 25.9 Anion Gap 12 BUN 50 H Creatinine 1.57 H Estimated GFR 43 L POC Glucose Random Glucose 272 H Calcium 8.1 L 12/30/17 05:54 WBC RBC Hgb Hct MCV MCH MCHC RDW Plt Count MPV Neut % (Auto) Lymph % (Auto) [place] % (Auto) Eos % (Auto) Baso % (Auto) Neut # (Auto) Lymph # (Auto) [place] # (Auto) Eos # (Auto) Baso # (Auto) WBC Differential Differential Comment PT INR APTT Sodium Potassium Chloride Carbon Dioxide Anion Gap BUN Creatinine Estimated GFR POC Glucose 321 H Random Glucose Calcium - Imaging Impressions Chest X-Ray 12/30/17 06:00 CONCLUSION: Stable severity bilateral mid and lower lung pleural effusions and consolidation. Assessment and Plan - Plan alterd mentel staurobson cva cad respiratory failure post trach plan check chest xray CONTINUE O2 PULM TOILET OUTLOOK POOR
--- NOTE | 2017-12-30 10:49 | P.PN ---
Subjective Interval history: Mr. Glynn was afebrile with borderline tachycardia overnight. Patient not responsive to verbal command today. Per discussion with family, he has continued to not be responsive. Per nursing staff, patient has had increased rapid/abdominal breathing today. Patient re-evaluated this afternoon due to whitish penile discharge and associated penile edema. Physical Exam Vital signs: Vital Signs 12/29/17 12:00 12/29/17 16:00 12/29/17 19:39 Temperature 98.2 F 97.3 F L Pulse Rate 102 H 99 H Respiratory Rate 22 18 Blood Pressure 108/62 117/71 Pulse Oximetry 98 95 95 12/29/17 19:41 12/29/17 20:00 12/30/17 00:00 Temperature 97.4 F L 97.4 F L Pulse Rate 99 H 106 H 103 H Respiratory Rate 18 18 24 Blood Pressure 122/58 L 110/58 L Pulse Oximetry 94 L 96 12/30/17 04:00 12/30/17 08:00 12/30/17 08:53 Temperature 98 F 98.5 F Pulse Rate 105 H 106 H 110 H Respiratory Rate 20 30 H 18 Blood Pressure 105/71 123/64 Pulse Oximetry 93 L 93 L 92 L Intake & Output 12/29/17 12/30/17 12/30/17 18:59 06:59 18:59 Intake Total 105 / 105 2912 / 2912 Output Total 850 / 850 Balance 105 / 105 2062 / 2062 Weight 88.9 kg Intake: IV 105 / 105 1000 / 1000 NS Inj 1,000 ML @ 84 mls/hr IV. 1000 / 1000 CONT .[id number] EDE Rx#:[id number] Keppra Inj 500 MG In NS Inj 100 105 / 105 ML @ 400 mls/hr IV.SIG Q12H EDE Rx#:[id number] Tube Feeding 1352 / 1352 Tube Irrigant 60 / 60 Water Bolus Amount 500 / 500 Output: Urine 850 / 850 Other: # Voids 1 # Incontinent Voids 4 # Bowel Movements 1 Narrative: GENERAL: sleeping in bed SKIN: Sacral/scrotal wounds not inspected today CARDIOVASCULAR: Regular rate and rhythm without murmurs; normal peripheral perfusion RESPIRATORY: T piece in place. Anterior and lateral breath sounds clear. Respiratory rate mildly elevated GASTROINTESTINAL: Abdomen soft, non-tender, nondistended. MUSCULOSKELETAL: No lower extremity edema appreciated Neuro: Noninteractive. Pupils symmetric. Patient nonresponsive/ does not follow- commands Addendum: On re-evaluation, patient tachypneic with RR ~30 bpm. Scrotal edema, penile edema, and whitish penile discharge inspected. Per nursing staff at bedside, penile edema was increased. Culture obtained Results - Labs CBC & Chem 7: 12/30/17 05:05 12/30/17 05:05 Laboratory Results - last 24 hr 12/29/17 12/29/17 12/29/17 12:22 12:58 18:00 WBC RBC Hgb Hct MCV MCH MCHC RDW Plt Count MPV Neut % (Auto) Lymph % (Auto) [place] % (Auto) Eos % (Auto) Baso % (Auto) Neut # (Auto) Lymph # (Auto) [place] # (Auto) Eos # (Auto) Baso # (Auto) WBC Differential Differential Comment PT INR APTT 44.1 H D Sodium Potassium Chloride Carbon Dioxide Anion Gap BUN Creatinine Estimated GFR POC Glucose 352 H 335 H Random Glucose Calcium 12/29/17 12/29/17 12/29/17 21:12 21:50 23:49 WBC 9.8 RBC 2.61 L Hgb 7.6 L Hct 23.3 L MCV 89.3 MCH 29.1 MCHC 32.6 RDW 21.1 H Plt Count 454 H MPV 8.8 Neut % (Auto) Lymph % (Auto) [place] % (Auto) Eos % (Auto) Baso % (Auto) Neut # (Auto) Lymph # (Auto) [place] # (Auto) Eos # (Auto) Baso # (Auto) WBC Differential Differential Comment PT INR APTT Sodium 132 L Potassium 4.6 D Chloride 95 L Carbon Dioxide 26.6 Anion Gap 10 BUN 49 H Creatinine 1.54 H Estimated GFR 44 L POC Glucose 254 H Random Glucose 245 H Calcium 7.9 L 12/30/17 12/30/17 12/30/17 05:05 05:05 05:05 WBC 10.2 RBC 2.72 L Hgb 8.2 L Hct 24.5 L MCV 90.3 MCH 30.1 MCHC 33.4 RDW 20.9 H Plt Count 480 H MPV 9.1 Neut % (Auto) 54.6 Lymph % (Auto) 30.9 [place] % (Auto) 13.7 H Eos % (Auto) 0.5 Baso % (Auto) 0.3 Neut # (Auto) 5.5 Lymph # (Auto) 3.1 [place] # (Auto) 1.4 H Eos # (Auto) 0.0 Baso # (Auto) 0.0 WBC Differential . Differential Comment Auto diff final PT 19.8 H INR 2.0 APTT 44.8 H Sodium 132 L Potassium 4.8 Chloride 94 L Carbon Dioxide 25.9 Anion Gap 12 BUN 50 H Creatinine 1.57 H Estimated GFR 43 L POC Glucose Random Glucose 272 H Calcium 8.1 L 12/30/17 05:54 WBC RBC Hgb Hct MCV MCH MCHC RDW Plt Count MPV Neut % (Auto) Lymph % (Auto) [place] % (Auto) Eos % (Auto) Baso % (Auto) Neut # (Auto) Lymph # (Auto) [place] # (Auto) Eos # (Auto) Baso # (Auto) WBC Differential Differential Comment PT INR APTT Sodium Potassium Chloride Carbon Dioxide Anion Gap BUN Creatinine Estimated GFR POC Glucose 321 H Random Glucose Calcium - Imaging Impressions Chest X-Ray 12/30/17 06:00 CONCLUSION: Stable severity bilateral mid and lower lung pleural effusions and consolidation. Assessment and Plan - Assessment (1) Encephalopathy Code(s): G93.40 - Encephalopathy, unspecified Status: Acute (2) CVA (cerebral vascular accident) Code(s): I63.9 - Cerebral infarction, unspecified Status: Acute (3) Wound of sacral region Code(s): S31.000A - Unspecified open wound of lower back and pelvis without penetration into retroperitoneum, initial encounter Status: Acute (4) NSTEMI (non-ST elevated myocardial infarction) Code(s): I21.4 - Non-ST elevation (NSTEMI) myocardial infarction Status: Resolved (5) Anemia Code(s): D64.9 - Anemia, unspecified Status: Acute (6) Respiratory failure with hypoxia and hypercapnia Code(s): J96.91 - Respiratory failure, unspecified with hypoxia; J96.92 - Respiratory failure, unspecified with hypercapnia Status: Resolved (7) Optic neuritis Code(s): H46.9 - Unspecified optic neuritis Status: Resolved - Plan In summary this is a 77-year-old male with a prolonged hospitalization for optic neuritis, ESBL E. coli UTI, sepsis, and STEMI, acute GI bleed, CVA status post systemic TPA, seizures, and acute hypoxic respiratory failure. Patient initially under ICU care; after initial improvement was transferred back to the ICU on November 18 after Hal[facility]at was called for AMS, hypoxia, and high fever. Patient has since stabilized and is being treated on Med-Surg floor for persistent encephalopathy Neuro 12/26- still nonverbal; not following commands Impression: patient with encephalopathy and new onset seizures, L ENID infarct. Status post systemic TPA on November 09 Repeat MRI unchanged; EEG with moderate encephalopathy -Currently on aspirin, Plavix, statin -Neuro consulted -Continue Ritalin, Keppra -Will plan to discuss with Neurology regarding prognosis; family meeting requested by son-in-law -Continue Heparin drip/Coumadin -Patient therapeutic at INR 2 today; will stop Heparin -Palliative care consulted -Neuropsychology consulted to assist family Optic neuritis Status post treatment with IV hydrocortisone GI Nutrition via PEG tube. Hyperglycemic recently (most glucoses in low 200's) Patient with loose stools; C diff negative -Continue sliding scale insulin Hyperkalemia Impression: K 4.8 today; improved on IVF -K supplementation discontinued -Will monitor BMP JULEE Impression: K 1.39 (12/27) -> 1.47 (12/28) -> 1.63 -> 1.57 today in association with Lasix 20mg IV BID; on tube feedings. Suspect from diuresis; no new meds -Will restart lasix due to concern for increasing edema -Will trend BMP Sepsis, UTI - ESBL E. coli +blood cultures on 10/24. Completed course of antibiotics. Urine culture on December 10 with Pseudomonas, pansensitive. Cipro stopped 12/17 -ID signed off 12/08; will plan to repeat araujo-cultures if T >101F Skin 1)Scrotal Edema/ulcerations Has been evaluated by Urology: continue with clean intermittent catheter as needed, scrotal elevation -Will notify wound care nurse to reassess scrotal area 2) Sacral wound -Seen by Plastic surgery; debridement declined per patient's family -Wound care consulted- continue Dignishield, apply dressings per wound management recommendations Respiratory Impression: Patient currently doing well on T piece; history of acute hypoxic and hypercapnic respiratory failure during hospitalization. Patient status post CT-guided thoracentesis of right-sided pleural effusion, transudative. Patient also s/p treatment for aspiration pneumonia -Patient with tracheostomy. Stable on T-piece. -Followed by Pulmonology -ID signed off Cardiac NSTEMI Echo 10/19: LV systolic function is moderately reduced, EF 40-45%. Per Cardiology the repeat echo shows similar EF not reduced as reported. HR better since we resumed Coreg. -Continue Aspirin, statin, Plavix -Cardiology following- Dr. Hernández Monitor HR and BP keep MAP>65mmHg On Cardura 2mg daily, Coreg 3.125mg BID, Lipitor 80mg qhs - Restart Lasix 20 mg IV BID for JULEE Anemia GI bleed; Status post EGD colonoscopy. GI has signed off, patient with healed rectal ulcers and hemorrhoids. H&H fluctuates -Continue to monitor DVT PPX on Heparin Drip-> Warfarin Code Status: Full code Discharge Planning: Will continue to assess based on care goals of family. Per CM, patient could likely be accepted as linsey case on hospice but currently pursuing aggressive care (5) Anemia Qualifiers: Anemia type: unspecified type Qualified Code(s): D64.9 - Anemia, unspecified
[2017-12-30] MEDS: Chlorhexidine 0.12% Oral Kit 15 ML UDC SWISH-SPIT SCH ×2 (11:32→22:58)
[2017-12-30] MEDS: Famotidine 20 MG Tablet PO SCH ×2 (11:33→22:57)
[2017-12-30] MEDS: Hydrocortisone Acetate 25 MG Supp RECTAL SCH ×2 (11:33→20:34)
--- NOTE | 2017-12-30 11:46 | P.NPEVAL ---
Patient History - Record/History Review Reason for Referral: The patient is a 77 year old right handed male status post CVA who was initially admitted for optic neuritis on 10/15/2017. Neuroimaging revealed diffuse severe arthrosclerotic disease. The patient was seen by psychiatry at one point for visual hallucinations, believed related to delirium. Since his admission, the patient has had multiple medical challenges, including multiple stroke, renal failure, respiratory failure, and is now presenting with a disorder of consciousness. The family has been optimistic about his recovery, but their optimism is preventing their realistic appraisal of this patient's likely outcome. He is referred for baseline neurobehavioral status examination to assess cognitive, behavioral and emotional aspects of the injury and to provide treatment recommendations. Medications Active Medications Acetaminophen (Tylenol) 650 mg PO Q6H PRN PRN Reason: FEVER/PAIN SCALE 1 TO 2 Al Hydroxide/Mg Hydroxide (Milk Of Magnkira Liq) 30 ml PO Q12H PRN PRN Reason: Mild constipation Albuterol (Duoneb Neb (Prn)) 1 ampul NEB Q2HR NEB PRN PRN Reason: SHORTNESS OF BREATH Atorvastatin Calcium (Llipitor) 80 mg PO HS [facility] Last Admin: 12/28/17 21:18 Dose: 80 mg Carvedilol (Coreg) 3.125 mg PO BID [facility] Last Admin: 12/29/17 08:52 Dose: 3.125 mg Chlorhexidine Gluconate (Peridex 0.12% Oral Kit) 15 ml SWISH-SPIT BID@0800, 2000 [facility] Last Admin: 12/29/17 12:39 Dose: 15 ml Cod Liver Oil/Zinc Oxide (Desitin 40% Oint) 1 applicatio TOPICAL UNSCH PRN PRN Reason: DIAPER RASH Collagenase (Santyl Oint) 1 applicatio TOPICAL DAILY [facility] Last Admin: 12/29/17 14:20 Dose: 1 applicatio Dextrose (D50w Vial) 25 ml IV.PUSH UNSCH PRN PRN Reason: HYPOGLYCEMIA-SEE COMMENTS Doxazosin Mesylate (Cardura) 4 mg PO DAILY [facility] Last Admin: 12/29/17 08:51 Dose: 4 mg Famotidine (Pepcid) 20 mg PO BID [facility] Last Admin: 12/29/17 08:51 Dose: 20 mg Furosemide (Lasix Inj) 20 mg IV.PUSH BID@0900,1800 [facility] Last Admin: 12/28/17 18:49 Dose: 20 mg Glucagon (Glucagon Inj) 1 mg OTHER UNSCH PRN PRN Reason: HYPOGLYCEMIA - SEE COMMENTS Haloperidol Lactate (Haldol Inj) 5 mg IV.PUSH Q4H PRN PRN Reason: agitation Heparin Sodium (Porcine) (Heparin Inj) 1,000 units OTHER WITH DIALYSIS PRN PRN Reason: SEE LABEL COMMENTS Hydrocortisone Acetate (Hemorrhoidal Hc Supp) 25 mg RECTAL BID [facility] Last Admin: 12/29/17 12:39 Dose: 25 mg Hydromorphone HCl (Dilaudid Pf Inj) 0.5 mg IV.PUSH Q4H PRN PRN Reason: pain 8-10 or not taking po Hyoscyamine (Levsin Liq) 0.125 mg SL Q4H PRN PRN Reason: SECRETIONS Heparin Sodium/Dextrose (Heparin/D5w 25,000 U/250 Ml) 25,000 unit in 250 mls @ 0 mls/hr IV.CONT TITRATE PRN; Protocol PRN Reason: Per Protocol Last Admin: 12/28/17 21:27 Dose: 800 units/hr, 8 mls/hr Levetiracetam 500 mg/ Sodium (Chloride) 105 mls @ 400 mls/hr IV.SIG Q12H [facility] Last Infusion: 12/29/17 13:22 Dose: Infused Pharmacy Profile Note (Coumadin Consult Pharmacy) mls @ 0 mls/hr OTHER UNSCH [facility] Sodium Chloride (Ns Inj) 1,000 mls @ 84 mls/hr IV.CONT .[id number] [facility] Last Admin: 12/30/17 02:54 Dose: 84 mls/hr Insulin Detemir (Levemir Inj) 3 unit SQ HS [facility] Insulin Human Regular (Novolin R Supplemental Scale) 0 units SQ Q6HR [facility]; Protocol Last Admin: 12/30/17 06:01 Dose: 10 units Ipratropium [place] (Atrovent Neb) 0.5 mg NEB BID NEB [facility] Last Admin: 12/30/17 08:46 Dose: 0.5 mg Ipratropium [place] (Atrovent Neb) 0.5 mg NEB Q4HR NEB PRN PRN Reason: WHEEZING Last Admin: 12/27/17 09:18 Dose: 0.5 mg Methylphenidate HCl (Ritalin) 10 mg PO BID@0800,1200 [facility] Last Admin: 12/29/17 15:37 Dose: 10 mg Metoclopramide HCl (Reglan Inj) 5 mg IV.PUSH Q8HR [facility] Last Admin: 12/30/17 05:35 Dose: 5 mg Miscellaneous (Pill Splitter) 1 each OTHER UNSCH PRN PRN Reason: SEE LABEL COMMENTS Ondansetron HCl (Zofran Inj) 4 mg IV.PUSH Q6H PRN PRN Reason: NAUSEA OR VOMITING Polyethylene Glycol (Miralax) 17 gm PO DAILY [facility] Last Admin: 12/29/17 15:36 Dose: Not Given Pramoxine HCl (Proctofoam) 1 applicatio RECTAL Q6HR [facility] Last Admin: 12/30/17 00:37 Dose: 1 applicatio Sennosides (Senokot) 17.2 mg PO Q12H PRN PRN Reason: Moderate constipation Sodium Chloride (Ns Flush) 2 ml IV.FLUSH UNSCH PRN PRN Reason: FLUSH AFTER USING IV ACCESS Sodium Chloride (Ns Flush) 2 ml IV.FLUSH BID [facility] Last Admin: 12/29/17 14:20 Dose: Not Given Sodium Chloride (Ns Flush) 10 ml IV.FLUSH UNSCH PRN PRN Reason: SEE LABEL COMMENTS Sterile Water (Free Water) 250 ml G-TUBE Q6HR [facility] Last Admin: 12/30/17 05:36 Dose: 250 ml Warfarin Sodium (Coumadin) 5 mg PO DAILY@1600 [facility] Last Admin: 12/29/17 15:38 Dose: 5 mg Mental Status Assessment - Mental Status Orientation: unable to assess: Self, Place, Time, Situation Mental Status: Impaired: Thought processing, Language/interactions, Attention, Learning/memory, Problem-solving, Visuospatial/construction, Self-regulation, Other Absent: Hallucinations, Delusions Adjustment/Coping Assessment - Adjustment/Coping Adjustment/Coping: Not Assessed: Depression, Anxiety, Pain, Apathy, Awareness, Insight - Observation The patient remains ventilated, and non responsive. He is not on any sedating medications. He has Ritalin, but this has proven ineffective. - Goals/Team Members LTG Status: Deferred STG Status: Deferred Team Members: Neuropsychologist Behavior - Behavior Treatment Engagement: No effort - Observation Behaviorally, the patient demonstrated no signs of agitation, impulsivity or disinhibition. There was no remarkable evidence of a formal thought disorder or psychosis. - Goals LTG Status: Deferred STG Status: Deferred - Team Members Team Members: Neuropsychologist Diagnosis/Discharge Plan - Diagnosis (1) Major neurocognitive disorder due to vascular disease, without behavioral disturbance, severe Status: Acute (2) Encephalopathy Status: Acute Impression: This patient is a 77 year old man with multiple medical comorbidities preventing an optimal therapeutic outcome. Maximizing Acute Care Outcome: I spoke with the daughter at length about the numerous medical challenges that this patient faces which prevents an optimal neurobehavioral outcome. I told her that the "foundation" on which he is maintained is deteriorated to such a point that it is extremely unlikely he will recover from his current challenges. At this point in the recovery process, the patient does not have cognitive capacity as the patient is unable to understand a situation and its likely consequences, nor is the patient able to manipulate information rationally. Cognitive capacity will be assessed throughout the recovery process , although it is very unlikely he will ever regain decision making capacity. - Discharge Planning Anticipated Problems: Ongoing areas of concern will include behavioral impulsivity, lack of insight and judgment, which is not expected to improve with time and treatment. Treatment Plan: This clinician will continue to follow with you throughout the course of this patients acute care treatment, and I will be available to meet with the patient s family/support system to facilitate their understanding and the ongoing care of their family member. The goals of neuropsychological intervention shall be both educational and supportive to the family/support system as is deemed clinically appropriate. Thank you for the opportunity to assist in this patients care. Junior Richards, Ph.D., ABPP Board Certified in Clinical Neuropsychology [place] [employer] Professional [employer] [place] Licensed Psychologist #[id number]
[2017-12-30] MEDS: Methylphenidate HCl 5 MG Tablet PO SCH ×2 (11:48→12:26)
[2017-12-30] MEDS: Collagenase Oint 30 GM Tube TOPICAL SCH (12:27)
--- NOTE | 2017-12-30 17:57 | P.DIET ---
Nutritional Evaluation Type of nutrition evaluation: follow-up Nutrition consult regarding: Tube Feeding Nutrition screening: Pressure Injury Screening comments: 12/29 WOCN note: Sacral wound unstageable-please see note in EMR Subjective Subjective Comments: non-responsive Objective - Diagnosis Optic Neuritis - Objective Body Weight Used for Calculations: IBW Energy Needs - Lower Range (kCal/kg): 30 Energy Needs - Upper Range (kCal/kg): 35 Lower Limit kCal/kg (kCals): 2,100 Upper Limit kCal/kg (kCals): 2,450 Lower Limit Protein Factor (Grams per Kg): 1.2 Upper Limit Protein Factor (Grams per Kg): 1.5 Lower Protein Needs (Protein): 84 Upper Protein Needs (Protein): 105 Fluid Factor (ml/kg): 30 Estimated Fluid Needs (ml): 2,100 Dietitian Reviewed in Medical Record: Curent medications, Intake & Output, Labs , Medical history, Tube feeding, Wound/DTI Diet Order: TF'ing ONLY Glucerna 1.5 @ goalr ate 60ml/hr Objective Comments: PMH: HTN, DM s/p mutliple intubations/extubations 12/02 s/p PEG tube and trach Accucheck 284 Meds Include: Lasix, Reglan, Levemir, Novolin R, Lipitor, Coreg, Pepcid, Zofran loose stools; c-diff negative Feeding - Current Tube Feeding Tube Feeding Product: Glucerna 1.5 Tube Feeding Rate: 60 Current kCals Provided by Tube Feedin,160 Current Protein Provided by Tube Feeding (gPRO): 119 Current Free H2O Provided (m/l): 1,093 Assessment Assessment: Pt continues at nutritional risk r/t extended hosptial stay, need for TF'ing and increased needs for unstageable wound. Pt w/continued loose stools. Rec an anti-diarrheal. Current TF'ing is appropriate for pt w/DM. Pt w/Hyperglycemia. Rec to adjust SSI as needed. Rec addition of Sharif supplement for wound healing. Sharif w/1-packet bid via feeding tube. Labs/electrolytes reviewed. Wt changes noted. Recommendations: 1.Rec TF'ing, as ordered, Glucerna 1.5 @ goal rate 60ml/hr 2. Adjust SSI for Hyperglycemia, as needed 3.Rec an anti-diarrheal 3.Rec addition of Sharif supplement for wound healing: Sharif w/1-packet bid via feeding tube Dietitian to Monitor: Lab values, Electrolytes, Renal labs, Glucose level, Intake & Output, Tube feeding tolerance, Weight change, Residuals, Wound/skin status, Medical course
[2017-12-30 18:43] LABS: Calcium 7.6 mg/dL (8.5-10.1); Carbon Dioxide 27.8 meq/L (21.0-32.0); Potassium 5.2 meq/L (3.5-5.1)
[2017-12-30] MEDS ORDERED: Sodium Polystyrene Sulfonate/Sorbitol Liq 15 GM/60 ML UDC PO ONE (20:26)
[2017-12-30] MEDS: Insulin Detemir Inj 1,000 UNIT/10 ML Vial SQ SCH ×2 (22:58→23:00)
[2017-12-31] MEDS: Insulin NovoLIN Regular Correctional Sugar Inj SQ SCH ×3 (01:33→17:32)
--- NOTE | 2017-12-31 07:45 | P.PN ---
Subjective Interval history: Responded to [facility] this morning; per nursing staff patient had acute worsening of O2 saturations to 60's this morning. Patient's T piece O2 increased for saturations ~90%. Lasix 80mg IV given, ABG, CXR, CBC, CMP, troponin, lactic acid obtained. After briefly having improvement in saturations to 90%, patient had desaturations to 70's. Patient seen by Dr. Estrada; agreed with transfer to [facility] Family notified Physical Exam Vital signs: Vital Signs 12/30/17 08:00 12/30/17 08:53 12/30/17 12:00 Temperature 98.5 F 98.0 F Pulse Rate 106 H 110 H 101 H Respiratory Rate 26 H 18 28 H Blood Pressure 123/64 116/71 Pulse Oximetry 92 L 92 L 96 12/30/17 15:22 12/30/17 16:00 12/30/17 18:20 Temperature 97.9 F Pulse Rate 99 H 107 H 103 H Respiratory Rate 24 28 H 28 H Blood Pressure 124/65 Pulse Oximetry 96 94 L 12/30/17 19:57 12/30/17 20:00 12/31/17 00:00 Temperature 98.3 F 99.8 F H Pulse Rate 100 H 106 H 107 H Respiratory Rate 20 20 20 Blood Pressure 127/64 118/60 Pulse Oximetry 93 L 96 95 12/31/17 04:00 Temperature 98.5 F Pulse Rate 106 H Respiratory Rate 20 Blood Pressure 132/68 Pulse Oximetry 95 Intake & Output 12/30/17 12/31/17 12/31/17 18:59 06:59 18:59 Intake Total 105 / 105 Balance 105 / 105 Weight 87.8 kg Intake: IV 105 / 105 Keppra Inj 500 MG In NS Inj 100 105 / 105 ML @ 400 mls/hr IV.SIG Q12H EDE Rx#:[id number] Other: # Voids 2 Date of Last Bowel Movement 12/30/17 # Bowel Movements 1 Narrative: GENERAL: respiratory distress SKIN: Sacral/scrotal wounds not inspected today CARDIOVASCULAR: Tachycardic; regular rhythm without murmurs; normal peripheral perfusion RESPIRATORY: T piece in place. Tachypneic; suggestive of fluid overload to auscultation GASTROINTESTINAL: Abdomen soft, non-tender, nondistended MUSCULOSKELETAL: No lower extremity edema appreciated Neuro: Noninteractive. Pupils symmetric. Patient nonresponsive/ does not follow- commands Results - Labs CBC & Chem 7: 12/30/17 05:05 12/30/17 17:55 Laboratory Results - last 24 hr 12/30/17 12/30/17 12/30/17 11:44 16:53 17:55 Sodium 133 L Potassium 5.2 H Chloride 97 L Carbon Dioxide 27.8 Anion Gap 8 BUN 52 H Creatinine 1.52 H Estimated GFR 45 L POC Glucose 327 H 284 H Random Glucose 267 H Calcium 7.6 L 12/31/17 12/31/17 01:02 05:52 Sodium Potassium Chloride Carbon Dioxide Anion Gap BUN Creatinine Estimated GFR POC Glucose 289 H 251 H Random Glucose Calcium Assessment and Plan - Assessment (1) Encephalopathy Code(s): G93.40 - Encephalopathy, unspecified Status: Acute (2) CVA (cerebral vascular accident) Code(s): I63.9 - Cerebral infarction, unspecified Status: Acute (3) Wound of sacral region Code(s): S31.000A - Unspecified open wound of lower back and pelvis without penetration into retroperitoneum, initial encounter Status: Acute (4) NSTEMI (non-ST elevated myocardial infarction) Code(s): I21.4 - Non-ST elevation (NSTEMI) myocardial infarction Status: Resolved (5) Anemia Code(s): D64.9 - Anemia, unspecified Status: Acute (6) Respiratory failure with hypoxia and hypercapnia Code(s): J96.91 - Respiratory failure, unspecified with hypoxia; J96.92 - Respiratory failure, unspecified with hypercapnia Status: Resolved (7) Optic neuritis Code(s): H46.9 - Unspecified optic neuritis Status: Resolved - Plan In summary this is a 77-year-old male with a prolonged hospitalization for optic neuritis, ESBL E. coli UTI, sepsis, and STEMI, acute GI bleed, CVA status post systemic TPA, seizures, and acute hypoxic respiratory failure. Patient initially under ICU care; after initial improvement was transferred back to the ICU on November 18 after [facility] was called for AMS, hypoxia, and high fever. Patient has since stabilized and is being treated on Med-Surg floor for persistent encephalopathy Respiratory Impression: Distress today; likely pulmonary edema from decreased lasix recently -CXR, ABG, CBC, CMP, EKG, lactic acid -Given lasix 80 mg IV -Transfer to [facility] (seen by Dr. Estrada; will inform Dr. Aguilar) Neuro Impression: patient with encephalopathy and new onset seizures, L ENID infarct. Status post systemic TPA on November 09 Repeat MRI unchanged; EEG with moderate encephalopathy -Currently on aspirin, Plavix, statin -Neuro consulted -Continue RitalinLesra -Will plan to discuss with Neurology regarding prognosis; family meeting requested by son-in-law -Continue Heparin drip/Coumadin -Patient therapeutic at INR 2 today; will stop Heparin -Palliative care consulted -Neuropsychology consulted to assist family Optic neuritis Status post treatment with IV hydrocortisone GI Nutrition via PEG tube. Hyperglycemic recently (most glucoses in low 200's) Patient with loose stools; C diff negative -Continue sliding scale insulin Hyperkalemia Impression: Intermittent -K supplementation discontinued -Will monitor BMP JULEE Impression: Cr ~1.5. -Will restart lasix due to concern for increasing edema -Will trend BMP Sepsis, UTI - ESBL E. coli +blood cultures on 10/24. Completed course of antibiotics. Urine culture on December 10 with Pseudomonas, pansensitive. Cipro stopped 12/17 -ID signed off 12/08; will plan to repeat araujo-cultures if T >101F Skin 1)Scrotal Edema/ulcerations Has been evaluated by Urology: continue with clean intermittent catheter as needed, scrotal elevation -Will notify wound care nurse to reassess scrotal area 2) Sacral wound -Seen by Plastic surgery; debridement declined per patient's family -Wound care consulted- continue Dignishield, apply dressings per wound management recommendations Cardiac NSTEMI Echo 10/19: LV systolic function is moderately reduced, EF 40-45%. Per Cardiology the repeat echo shows similar EF not reduced as reported. HR better since we resumed Coreg. -Continue Aspirin, statin, Plavix -Cardiology following- Dr. Hernández Monitor HR and BP keep MAP>65mmHg On Cardura 2mg daily, Coreg 3.125mg BID, Lipitor 80mg qhs - Restart Lasix 20 mg IV BID for JULEE Anemia GI bleed; Status post EGD colonoscopy. GI has signed off, patient with healed rectal ulcers and hemorrhoids. H&H fluctuates -Continue to monitor DVT PPX on Heparin Drip-> Warfarin Discharge Planning: Poor prognosis; transfer back to [facility] today (5) Anemia Qualifiers: Anemia type: unspecified type Qualified Code(s): D64.9 - Anemia, unspecified
[2017-12-31 07:54] LABS: ABG Base Excess 2.5 mmol/L (-2-2); ABG PCO2 60 mmHg (38-42); ABG PO2 61 mmHg (61-120)
--- NOTE | 2017-12-31 08:09 | XR ---
EXAM DATE: 12/31/2017 8:03 AM EDT AGE/SEX: 77 years / Male INDICATIONS: Respiratory distress. CLINICAL DATA: This is the patient's initial encounter. Patient reports that signs and symptoms have been present for 1 day and indicates a pain score of 0/10. MEDICAL/SURGICAL HISTORY: Hypertension. Deep venous thrombosis. Renal insufficiency, chronic. Diabetes mellitus type II. CAD, . Tracheostomy. COMPARISON: C, CHEST 1V SINGLE AP, 12/30/2017. . FINDINGS: Significant and increasing opacity is identified throughout both lungs. Heart and mediastinal structu res are obscured by lung opacity. Tracheostomy tube is in place. CONCLUSION: Worsening lung opacity characteristic of increasing consolidation and pleural fluid accumulation. Electronically signed by: Gagan Walker MD 12/31/2017 8:08 AM EDT
[2017-12-31] MEDS: Polyethylene Glycol 3350 17 GM Packet PO SCH (09:51)
[2017-12-31] MEDS: Famotidine 20 MG Tablet PO SCH ×2 (09:55→22:44)
[2017-12-31 11:05] LABS: Baso # (Auto) 0.1 th/mm3 (0.0-0.2); Baso % (Auto) 0.5 % (0.0-2.0); Eos % (Auto) 0.1 % (0.0-4.0); Hematocrit 24.3 % (39.0-51.0); Hemoglobin 7.8 gm/dL (13.0-17.0); Lymph # (Auto) 2.4 th/mm3 (1.0-4.8); Lymph % (Auto) 19.9 % (9.0-44.0); Mean Corpuscular Hemoglobin 28.6 pg (27.0-34.0); Mean Corpuscular Volume 89.3 fL (80.0-100.0); Mean Platelet Volume 8.4 fL (7.0-11.0); Mono # (Auto) 1.5 th/mm3 (0.0-0.9); Mono % (Auto) 12.4 % (0.0-8.0); Neut # (Auto) 8.2 th/mm3 (1.8-7.7); Neut % (Auto) 67.1 % (16.0-70.0); Platelet Count 492 th/mm3 (150-450); Red Blood Count 2.72 mil/mm3 (4.50-5.90); Red Cell Distribution Width 20.9 % (11.6-17.2); White Blood Count 12.2 th/mm3 (4.0-11.0)
--- NOTE | 2017-12-31 11:13 | P.PNCC ---
Subjective Subjective Remarks/Hospital Course: This is a 77-year-old male who initially presented with vision changes and concern for optic neuritis versus temporal arteritis. His initial presentation was on 10/14. His hospital course has been complicated by an NSTEMI with troponins which peaked at 10, ESBL E. coli urinary tract infection, rectal bleeding suspected from bleeding hemorrhoids, acute anemia secondary to blood loss with hemoglobin started around 14 and is trended down to 9.7 this morning. On his initial MRA he was found to have significant atherosclerotic cerebrovascular disease in all vascular territories. Today, he had an acute mental status change and was obtunded. Rapid response and stroke alert was called. His initial NIH stroke scale was 22. Dr. goldstein had conversations with Dr. Ulloa and neurology as well as Dr. sierra with gastroenterology. GI feels comfortable with giving thrombolytics and neurology feels strongly that this patient would benefit from systemic IV TPA therapy. I evaluated the patient on arrival to the intensive care unit. The patient is arousable, but very somnolent. He is Upper Sor[place] speaking, and it is very difficult to ascertain whether or not he can follow commands. He does move all extremities spontaneously, although it appears that his left side is weaker than his right. He has noted facial droop. CT head is negative for acute hemorrhage. CTA head neck is significant for the same multivessel cerebrovascular disease that was present on admission. Given the high-risk nature of the stroke as well as his acute anemia this hospitalization, in preparation for giving emergent IV systemic TPA, I placed an arterial line as well as a large-bore peripheral IV so that we could draw serial labs, monitor his hemoglobin, and give blood products if necessary. I also had an additional discussion with the family where I reconfirmed that their goals were aggressive and they fully understood the significant risk of life-threatening hemorrhage associated with systemic TPA in a patient with new anemia and suspected GI bleeding. The family expressed understanding of his condition and understanding of the heightened risk of life-threatening bleeding, but still urged that we needed to get TPA. Immediately after giving IV TPA, patient had a tonic clonic seizure (witnessed on EEG) and became obtunded with acute hypoxic and hypercarbic respiratory failure and was emergently intubated (see separate procedure note for details). 11/10: remains intubated. encephalopathy persists. hgb stable s/p TPA. ~350cc bloody OG tube output, but this is slowing down. 11/11: more awake. on SBT. follows commands. 11/12: remains extubated. off vasopressors. no changes in mental status. 11/18/17 CCM Reconsult Note Patient was transferred to ICU today after a Halicat was called for AMS, hypoxia , high fever. Apparently patient was lethargic since a.m. in the last hour had been unresponsive and hence Halicat was called. Patient had a fever of 101.4 in a.m., T-max is 101.6. I immediately evaluated the patient in the ICU. Patient is completely unresponsive, oxygen saturation 87% on 4 L nasal cannula. Hypopneic. No response to deep pain. Patient was confirmed to be a full code and I proceeded with endotracheal intubation place him on mechanical ventilation as patient was not protecting airway. More history was obtained from discussion with ID Dr. Jalloh. She indicated patient had been increasingly lethargic with fever and also had urinary retention.She has discontinued Ertapenem, and started on meropenem, vancomycin and micafungin. Cultures have been sent and are pending now. Source of sepsis appears to be aspiration pneumonia versus UTI. Repeat UA and panculture pending at this time. Patient was borderline hypotensive prior to intubation and I have started on Levophed to avoid hypotension post intubation. Receiving 1 L normal saline bolus now, give additional fluid bolus if patient requires continued Levophed will place central line 11/19: remains intubated. holding aggrenox for possible thoracentesis today, but family hesitant to consent with concerns over bleeding risk. Cr remains elevated. discussion with Dr. Bernal, unlikely to benefit currently from draining effusion, so at his recommendation, will proceed with attempted weaning from mechanical ventilation and treat effusion conservatively. 11/20: Overnight /early this a.m. ,the patient was noted to have large amount of rectal bleeding. Aggrenox held since 11/18, 2/2 reintubation. Type and screen ordered. Serial H&H currently be performed. Hemodynamically stable. GI has been reconsulted. Protonix previously given PRN, will schedule BID. Patient was reintubated emergently 11/18, plan for continue CPAP trials. Tube feedings until evaluation by GI. ASA placed on hold , in the setting of GI bleeding. 11/21: EGD and colonoscopy performed yesterday. Patient was noted to be constipated ,disimpacted per GI. Patient noted to have hemorrhoids which was clipped. No further bleeding throughout the night. Chest x-ray showed improvement. CPAP trials initiated this a.m.. ASA 81 mg resumed. 11/22: Patient tolerated CPAP trials approximately 13 hours yesterday. Initiation of tube feeds per GI yesterday, no residuals. This am , family concerned patient not responsive. CT brain , ammonia level and EEG pending. Neurology has been reconsulted. Upon my entering the room, this afternoon, the patient was awake, tracking and squeezing my hand upon commands, with right hand. The patient received 1 u PRBC for Hgb 7.2. Post transfusion CBC pending. Plan for quantification of pleural fluid for possible thoracentesis in a.m.. 11/23: No acute events overnight. Patient remains off all sedation. Noted spontaneous eye opening, tracking following commands squeezing hands right greater than left. Neurology following plan for MRI this a.m., repeat EEG pending. Hemoglobin stable this a.m.. Chest x-ray slight improvement, plan for quantification via ultrasound of pleural effusions for possible thoracentesis today. 3 failed attempts at CPAP trials yesterday. 1548-MRI resulted findings consistent of small areas of acute cortical infarct, new since 11/09/2017. I contacted neurology, Dr. Geronimo informed of results. After Dr. Palma's review of imaging and records, it was determined most likely cardioembolic since is affecting both sides and failure with aspirin and Persantine. Ischemic stroke heparin protocol initiated. Careful review secondary to patient history of GI bleed 11/20, thought to be emanating from hemorrhoid ,however due to poor suboptimal prep, they unable to have optimal visualization per Dr. Jones. 11/24: Late entry note. Patient seen and evaluated 614. No acute events overnight. Patient continues on heparin infusion no active signs of bleeding. PTT within therapeutic range. The patient is less responsive this a.m., spontaneous eye opening, not following my commands. Not moving his extremities spontaneously for me as previously performed yesterday. tube feeds reinitiated. Chest x-ray showed further improvement in aeration of lungs the patient continues on FiO2 of 0.35. Plan for CPAP trials today. 11/25: No acute events overnight. Neurological status unchanged. Spontaneous eye opening patient continues not following any commands. Dr. Geronimo at bedside evaluating patient, no change. Patient tolerated CPAP trials approximately 12 hours yesterday. Tolerating tube feeds. Chest x-ray remains unchanged from yesterday. Hemoccult stool negative. Heparin infusion continued. family at bedside. 11/26: Late entry note. Patient seen at 1240pm. Last night the patient was noted to be continuously hyperglycemic. Levemir added to medication regimen 10 mg/day hemoglobin dropped 2 g/dL in 2 days hemoglobin now 7.7, patient to be transfused 1 unit packed red blood. No obvious signs of bleeding Hemoccult was negative. Patient continues on heparin infusion, patient may require tracheostomy and PEG in the near future . Plan to transition to p.o. anticoagulation post procedures. Neurologically the status is unchanged the patient is opens eyes spontaneously no movement of extremities upon my evaluation. Continued CPAP trials currently greater than 6 hours. 11/27: At 1000am, the patient was noted to have melena, approximated at 150 cc per RN evaluation. Heparin infusion discontinued/placed on hold at 10 AM. Stool for Hemoccult blood sent, GI was contacted and informed of the above events. Stat CT of the abdomen and pelvis with p.o. contrast ordered, results pending. Patient previously had been tolerating trickle feeds at 10 cc an hour with no residuals, after initiation of Reglan 5 mg every 8 hours yesterday. Neurologically the patient status is unchanged. Patient does have spontaneous eye opening but does not follow my commands and does not move extremities. Patient's daughter is at bedside, discussed the above events at which she was present for, she is requesting a repeat colonoscopy. I informed her that a CT of the abdomen and pelvis will be obtained, serial hemoglobin will be evaluated and if needed transfusion will be provided and gastroenterology has been contacted and will determine further management if an invasive procedure is required. Hemoglobin continues to be monitored serially, results pending for 10 AM. The patient received 1 unit packed red blood cells, and current hemoglobin trended overnight 8.9 to 8.2 this a.m., posttransfusion. 11/28: hgb continues to decline despite being off heparin. no additional GI interventions are available at this time. clearly the patient has failed anticoagulation with 2 life-threatening bleeding episodes. Although it is clear he may have additional strokes off anticoagulation, we have clear evidence that we are hurting his overall clinical care with his anticoagulation. I explained this at length to the daughter and medical decision maker. however, she insists that she would rather see him of bleeding rather than have any more strokes , and insists that "we can always keep giving him blood". I explained that blood is not without risk, and there is significant risk to anticoagulation, but she is insistent that he be given anticoagulation to prevent further strokes and she has weighed the risks and benefits after having full informed consent, insists upon us restarting the heparin drip. At her insistence, I have restarted it. In addition, I have counseled her that I do not think he will survive this hospitalization, and he will require tracheostomy for further aggressive care. She states that we are not at "day 14" on the vent, and it is not time for a tracheostomy yet. This is a second intubation and we are certainly at risk for complications from endotracheal intubation, and tracheostomy would be the most appropriate next step for this patient, but the family is refusing until WednesdayDecember 01. 11/29 Patient remains intubated, on no sedation. Afebrile. 11/30 No events overnight. Patient tolerated CPAP for most of day yesterday. Remains on Heparin drip. 12/01 Patient remains intubated tolerated CPAP for several hrs yesterday. s/p CT guided right thoracentesis with removal 500ml pleural fluid. On Heparin drip 12/02 No events overnight. Heparin drip stopped this morning for trach and PEG placement today. Afebrile. 12/03 Patient s/p trach and PEG tube placement yesterday. Had bleeding from around trach and PEG tube insertion sites Heparin drip held last night. s/p transfusion 1u PRBC yesterday Hgb 8.0 this morning. Afebrile. On no sedation. 12/04: Continues to have bruising from PEG tube insertion site. Trach site appears to have stopped. Hemoglobin 7 the same receiving 1 unit FFP and 1 PRBCs. Tube feeds of been resumed. On no sedation. 12/05: Afebrile. No further bleeding noted from the tracheostomy site. Overnight reported by the RN that the PEG tube site continues to bleed Surgicel was placed around the opening, small amount of bleeding still noted. Patient hemoglobin remained 7 patient to be transfused 1 unit PRBC's fibrinogen level pending INR within normal limits. 12/06 Patient s/p transfusion 2u PRBC yesterday Hgb 9.5 this morning from 7.2 last night. No bleeding from trach site however patient still having rectal bleeding. 12/07 No events overnight. On ventilator via trach Hgb 9.8 this morning for colonoscopy today. 12/08: seen and examined around 06:30am. no significant change in mental status. hgb 8.9 this AM. remains on heparin [facility]. 12/09: no improvements or changes. very deconditioned. garcia has remained in without clear indication. had 1 episode of urinary retention, but this is a clear source of infection and an additional serious infection would certainly be life-threatening. 12/10 Patient is now on TP's with 28% FIO2, Afebrile. On Heparin drip. 12/11: remains on t-piece x > 48h. no change in neuro exam. remains on heparin drip with stable hgb 7.8. Subjective: 12/12: asked to see patient again today by the hospitalist service for change in condition. I have evaluated the patient and he does not clinically appear any different than yesterday. HR actually lower than yesterday. bladder scan suggestive of 600cc retention. patient has had urinary retention before, although has also had multiple hospital acquired urinary tract infections. risk/ benefit at this time would be in favor of serial q6h straight catheterizations. remains hemodynamically stable. some emesis today and evidence of ileus. 12/31 Reconsult for resp distress Patient is 77 yo with chronic resp failure, trach/PEG tube placement, CVA transferred [place] [facility] [place] trach changes to #6 and patient was placed on mechanical ventilation. CXR showed increasing consolidation patient was given Lasix prior to arrival to [facility]. Objective Vital Signs / I&O: Vital Signs 12/30/17 12:00 12/30/17 15:22 12/30/17 16:00 Temperature 98.0 F 97.9 F Pulse Rate 101 H 99 H 107 H Respiratory Rate 28 H 24 28 H Blood Pressure 116/71 124/65 Pulse Oximetry 96 96 94 L 12/30/17 18:20 12/30/17 19:57 12/30/17 20:00 Temperature 98.3 F Pulse Rate 103 H 100 H 106 H Respiratory Rate 28 H 20 20 Blood Pressure 127/64 Pulse Oximetry 93 L 96 12/31/17 00:00 12/31/17 04:00 12/31/17 08:00 Temperature 99.8 F H 98.5 F 98.9 F Pulse Rate 107 H 106 H 93 H Respiratory Rate 20 20 16 Blood Pressure 118/60 132/68 93/55 L Pulse Oximetry 95 95 100 12/31/17 08:19 12/31/17 08:49 12/31/17 08:53 Temperature Pulse Rate Respiratory Rate 19 Blood Pressure Pulse Oximetry 84 L 100 100 Intake & Output 12/30/17 12/31/17 12/31/17 18:59 06:59 18:59 Intake Total 105 / 105 Balance 105 / 105 Weight 87.8 kg Intake: IV 105 / 105 Keppra Inj 500 MG In NS Inj 100 105 / 105 ML @ 400 mls/hr IV.SIG Q12H EDE Rx#:[id number] Oral 0 / 0 Other: # Voids 2 4 Date of Last Bowel Movement 12/30/17 12/31/17 12/31/17 # Bowel Movements 1 3 Result Diagrams: 12/31/17 10:51 12/31/17 10:51 Objective Remarks: GENERAL: Patient is 77 yo encephalopathy on ventilator SKIN: Warm and dry. HEAD: Normocephalic. EYES: No scleral icterus. No injection or drainage. NECK: Supple, trachea midline. No JVD or lymphadenopathy. + trach CARDIOVASCULAR: Regular rate and rhythm without murmurs, gallops, or rubs. RESPIRATORY: Breath sounds equal bilaterally. No accessory muscle use. GASTROINTESTINAL: Abdomen soft, non-tender, nondistended. +PEG tube in place MUSCULOSKELETAL: No cyanosis, or edema. Neuro: Encephalopathic Assessment and Plan - Assessment and Plan Plan: 1)Chronic resp failure s/p trach/PEG 2)Encephalopathy 3)CVA 4)Anemia 5)s/p NSTEMI 6)Optic neuritis Plan Neuro Impression: patient with encephalopathy, seizures, L ENID infarct. Status post systemic TPA on November 09 Repeat MRI unchanged; EEG with moderate encephalopathy on aspirin, Plavix, statin Neuro is following, on Ritalin, Keppra On Coumadin with INR 2 today Neuropsychology is following Optic neuritis. Status post treatment with IV hydrocortisone CV: NSTEMI Echo 10/19: LV systolic function is moderately reduced, EF 40-45%. Per Cardiology the repeat echo shows similar EF not reduced as reported. HR better since we resumed Coreg. Continue Aspirin, statin, Plavix Cardiology following- Dr. Hernández Monitor HR and BP keep MAP>65mmHg On Cardura 2mg daily, Coreg 3.125mg BID, Lipitor 80mg qhs Pulm: Continue with vent support keep sat >92% Trach changed from cuffless to size 6 Bronchodilators, ICU vent bundle Check ABG GI Nutrition via PEG tube. Continue tube feeds : Monitor renal function, electrolytes replacement per protocol Continue Lasix 20mg BID, d/c Free water ID Sepsis, UTI - ESBL E. coli +blood cultures on 10/24. Completed course of antibiotics. Urine culture on December 10 with Pseudomonas, pansensitive. Cipro stopped 12/17 -ID signed off 12/08; araujo-cultures if T >101F Monitor for signs of infections ( Fever, WBC) check sputum cx Skin Scrotal Edema/ulcerations Has been evaluated by Urology: continue with clean intermittent catheter as needed, scrotal elevation -Will notify wound care nurse to reassess scrotal area Sacral wound -Seen by Plastic surgery; debridement declined per patient's family -Wound care is following- apply dressings per wound management recommendations Heme: Anemia GI bleed; Status post EGD colonoscopy. GI has signed off, patient with healed rectal ulcers and hemorrhoids. Monitor CBC, coags- on Coumadin with INR 2.3 today, d/c Heparin drip Endo SSI , lantus 5u qhs for glycemic control GI prophylaxis- on Pepcid DVT prophylaxis- On Coumadin with INR 2.3 Level 3
[2017-12-31 11:28] LABS: Alanine Aminotransferase 53 U/L (12-78); Albumin 1.2 g/dL (3.4-5.0); Anion Gap 9 meq/L (5-15); Aspartate Aminotransferase 58 U/L (15-37); Blood Urea Nitrogen 53 mg/dL (7-18); Calcium 7.6 mg/dL (8.5-10.1); Carbon Dioxide 27.8 meq/L (21.0-32.0); Chloride 98 meq/L (98-107); Glomerular Filtration Rate 43 mL/min (>89); Glucose,Random 211 mg/dL (74-106); Potassium 5.2 meq/L (3.5-5.1); Sodium 135 meq/L (136-145)
[2017-12-31 11:32] LABS: Alkaline Phosphatase 168 U/L (45-117); Total Protein 6.7 g/dL (6.4-8.2); Troponin I 0.03 ng/mL (0.02-0.05)
[2017-12-31 12:15] LABS: ABG Base Excess 3.9 mmol/L (-2-2); ABG PCO2 34 mmHg (38-42); ABG PO2 86 mmHG (61-120)
--- NOTE | 2017-12-31 12:19 | XR ---
EXAM DATE: 12/31/2017 12:07 PM EDT AGE/SEX: 77 years / Male INDICATIONS: Status post trach exchange. CLINICAL DATA: This is the patient's subsequent encounter. Patient reports that signs and symptoms h ave been present for 4 - 6 days and indicates a pain score of Nonresponsive. MEDICAL/SURGICAL HISTORY: Hypertension. Diabetes mellitus type II. None. COMPARISON: [facility] [place] 1[place] SINGLE AP, 12/31/2017. . FINDINGS: There is bilateral mostly basilar airspace disease and bilateral effusions similar to exam from [facility] er today. Tracheostomy in good position. No pneumothorax. CONCLUSION: Tracheostomy in good position. Otherwise no change compared with exam from earlier today. Electronically signed by: Deo Lau MD 12/31/2017 12:18 PM EDT
[2017-12-31 12:22] LABS: INR 2.3 Ratio
--- NOTE | 2017-12-31 14:15 | P.PN ---
Subjective Interval history: RESPIRATORY DISTRESS TRANFERRED TO ICU NOW ON VENT SUPPORT CXRAY INCREASED EFFUSION/CONSOLIDATION Physical Exam Vital signs: Vital Signs 12/30/17 15:22 12/30/17 16:00 12/30/17 18:20 Temperature 97.9 F Pulse Rate 99 H 107 H 103 H Respiratory Rate 24 28 H 28 H Blood Pressure 124/65 Pulse Oximetry 96 94 L 12/30/17 19:57 12/30/17 20:00 12/31/17 00:00 Temperature 98.3 F 99.8 F H Pulse Rate 100 H 106 H 107 H Respiratory Rate 20 20 20 Blood Pressure 127/64 118/60 Pulse Oximetry 93 L 96 95 12/31/17 04:00 12/31/17 08:00 12/31/17 08:19 Temperature 98.5 F 98.9 F Pulse Rate 106 H 93 H Respiratory Rate 20 16 Blood Pressure 132/68 93/55 L Pulse Oximetry 95 100 84 L 12/31/17 08:49 12/31/17 08:53 12/31/17 10:00 Temperature Pulse Rate 94 H Respiratory Rate 19 Blood Pressure Pulse Oximetry 100 100 12/31/17 11:38 12/31/17 12:00 Temperature 98.6 F Pulse Rate 90 Respiratory Rate 16 16 Blood Pressure 101/60 Pulse Oximetry 100 100 Intake & Output 12/30/17 12/31/17 12/31/17 18:59 06:59 18:59 Intake Total 105 / 105 Balance 105 / 105 Weight 87.8 kg Intake: IV 105 / 105 Keppra Inj 500 MG In NS Inj 100 105 / 105 ML @ 400 mls/hr IV.SIG Q12H EDE Rx#:[id number] Oral 0 / 0 Other: # Voids 2 4 Date of Last Bowel Movement 12/30/17 12/31/17 12/31/17 # Bowel Movements 1 3 Narrative: GENERAL: respiratory distress SKIN: Sacral/scrotal wounds not inspected today CARDIOVASCULAR: Tachycardic; regular rhythm without murmurs; normal peripheral perfusion RESPIRATORY: ON THE VENT, DECREASE BREATH SOUNDS AT BASIS GASTROINTESTINAL: Abdomen soft, non-tender, nondistended MUSCULOSKELETAL: No lower extremity edema appreciated Neuro: Noninteractive. Pupils symmetric. Patient nonresponsive/ does not follow- commands Results - Labs CBC & Chem 7: 12/31/17 10:51 07/06/18 10:51 Laboratory Results - last 24 hr 12/30/17 12/30/17 12/31/17 16:53 17:55 01:02 WBC RBC Hgb Hct MCV MCH MCHC RDW Plt Count MPV Neut % (Auto) Lymph % (Auto) Pre[place] % (Auto) Eos % (Auto) Baso % (Auto) Neut # (Auto) Lymph # (Auto) Preble # (Auto) Eos # (Auto) Baso # (Auto) WBC Differential Differential Comment PT INR Puncture Site Patient Temperature O2 Saturation ABG pH ABG pCO2 ABG pO2 ABG HCO3 ABG O2 Content ABG Base Excess ABG Methemoglobin Stepan Test Hemoglobin Carboxyhemoglobin O2 Delivery Device Vent Setting Inspired O2 Critical Value Sodium 133 L Potassium 5.2 H Chloride 97 L Carbon Dioxide 27.8 Anion Gap 8 BUN 52 H Creatinine 1.52 H Estimated GFR 45 L POC Glucose 284 H 289 H Random Glucose 267 H Lactic Acid Calcium 7.6 L Total Bilirubin AST ALT Alkaline Phosphatase Troponin I Total Protein Albumin 12/31/17 12/31/17 12/31/17 05:52 07:37 07:43 WBC RBC Hgb Hct MCV MCH MCHC RDW Plt Count MPV Neut % (Auto) Lymph % (Auto) [place] % (Auto) Eos % (Auto) Baso % (Auto) Neut # (Auto) Lymph # (Auto) Pre[place] # (Auto) Eos # (Auto) Baso # (Auto) WBC Differential Differential Comment PT INR Puncture Site Right brachial Patient Temperature 98.6 O2 Saturation 84 L* ABG pH 7.30 L ABG pCO2 60 H* ABG pO2 61 ABG HCO3 28 H ABG O2 Content 10.9 L ABG Base Excess 2.5 H ABG Methemoglobin 0.6 Stepan Test Hemoglobin 9.1 L Carboxyhemoglobin 1.7 O2 Delivery Device T-piece Vent Setting Inspired O2 98 Critical Value Yes Sodium Potassium Chloride Carbon Dioxide Anion Gap BUN Creatinine Estimated GFR POC Glucose 251 H 299 H Random Glucose Lactic Acid Calcium Total Bilirubin AST ALT Alkaline Phosphatase Troponin I Total Protein Albumin 12/31/17 12/31/17 12/31/17 10:51 10:51 10:51 WBC 12.2 H RBC 2.72 L Hgb 7.8 L Hct 24.3 L MCV 89.3 MCH 28.6 MCHC 32.0 RDW 20.9 H Plt Count 492 H MPV 8.4 Neut % (Auto) 67.1 Lymph % (Auto) 19.9 Pre[place] % (Auto) 12.4 H Eos % (Auto) 0.1 Baso % (Auto) 0.5 Neut # (Auto) 8.2 H Lymph # (Auto) 2.4 Preble # (Auto) 1.5 H Eos # (Auto) 0.0 Baso # (Auto) 0.1 WBC Differential . Differential Comment Auto diff final PT INR Puncture Site Patient Temperature O2 Saturation ABG pH ABG pCO2 ABG pO2 ABG HCO3 ABG O2 Content ABG Base Excess ABG Methemoglobin Stepan Test Hemoglobin Carboxyhemoglobin O2 Delivery Device Vent Setting Inspired O2 Critical Value Sodium 135 L Potassium 5.2 H Chloride 98 Carbon Dioxide 27.8 Anion Gap 9 BUN 53 H Creatinine 1.58 H Estimated GFR 43 L POC Glucose Random Glucose 211 H Lactic Acid 1.5 Calcium 7.6 L Total Bilirubin 0.2 AST 58 H ALT 53 Alkaline Phosphatase 168 H Troponin I 0.03 Total Protein 6.7 Albumin 1.2 L 12/31/17 12/31/17 12/31/17 10:51 11:47 12:00 WBC RBC Hgb Hct MCV MCH MCHC RDW Plt Count MPV Neut % (Auto) Lymph % (Auto) [place] % (Auto) Eos % (Auto) Baso % (Auto) Neut # (Auto) Lymph # (Auto) Pre[place] # (Auto) Eos # (Auto) Baso # (Auto) WBC Differential Differential Comment PT 23.0 H INR 2.3 Puncture Site Left brachial Patient Temperature 98.6 O2 Saturation 95 ABG pH 7.51 H* ABG pCO2 34 L ABG pO2 86 ABG HCO3 27 H ABG O2 Content 10.6 L ABG Base Excess 3.9 H ABG Methemoglobin 1.2 Stepan Test Present Hemoglobin 7.9 L Carboxyhemoglobin 1.8 O2 Delivery Device Ventilator Vent Setting Prcv16/500/1.0/+5 Inspired O2 40 Critical Value Yes Sodium Potassium Chloride Carbon Dioxide Anion Gap BUN Creatinine Estimated GFR POC Glucose Random Glucose Lactic Acid Calcium Total Bilirubin AST ALT Alkaline Phosphatase Troponin I Cancelled Total Protein Albumin Microbiology 12/30/17 17:00 Fluid - Other Gram Stain - Final 12/30/17 17:00 Fluid - Other Body Fluid Culture - Preliminary gram negative rods - Imaging Impressions Chest X-Ray 12/31/17 00:00 CONCLUSION: Tracheostomy in good position. Otherwise no change compared with exam from earlier today. Chest X-Ray 12/31/17 07:38 CONCLUSION: Worsening lung opacity characteristic of increasing consolidation and pleural fluid accumulation. 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
[2017-12-31] MEDS: Collagenase Oint 30 GM Tube TOPICAL SCH (14:57)
[2017-12-31] MEDS: Chlorhexidine 0.12% Oral Kit 15 ML UDC SWISH-SPIT SCH (22:04)
[2017-12-31] MEDS: Hydrocortisone Acetate 25 MG Supp RECTAL SCH (22:04)
[2017-12-31] MEDS: Insulin Detemir Inj 1,000 UNIT/10 ML Vial SQ SCH (22:38)
[2018-01-01 00:41] LABS: Bacteria,Urine Few /hpf; Bilirubin,Urine Negative (Negative); Clarity,Urine Cloudy (Clear); Color,Urine Yellow (Yellw/Straw); Glucose,Urine (UA) Negative (Negative); Leukocyte Esterase,Urine Large (Negative); Nitrite,Urine Negative (Negative); Specific Gravity,Urine 1.009 (1.002-1.035)
[2018-01-01] MEDS: Insulin NovoLIN Regular Correctional Sugar Inj SQ SCH ×3 (01:13→18:53)
[2018-01-01 06:10] LABS: Baso % (Auto) 0.3 % (0.0-2.0); Eos % (Auto) 0.4 % (0.0-4.0); Hematocrit 22.8 % (39.0-51.0); Hemoglobin 7.6 gm/dL (13.0-17.0); INR 3.3 Ratio; Lymph % (Auto) 38.7 % (9.0-44.0); Mean Corpuscular HGB Conc 33.5 % (32.0-36.0); Mean Corpuscular Hemoglobin 29.7 pg (27.0-34.0); Mean Corpuscular Volume 88.7 fL (80.0-100.0); Mean Platelet Volume 8.3 fL (7.0-11.0); Mono # (Auto) 1.2 th/mm3 (0.0-0.9); Mono % (Auto) 11.6 % (0.0-8.0); Neut # (Auto) 5.1 th/mm3 (1.8-7.7); Platelet Count 438 th/mm3 (150-450); Red Blood Count 2.57 mil/mm3 (4.50-5.90); Red Cell Distribution Width 21.1 % (11.6-17.2); White Blood Count 10.4 th/mm3 (4.0-11.0)
[2018-01-01 06:50] LABS: Alanine Aminotransferase 41 U/L (12-78); Albumin 1.1 g/dL (3.4-5.0); Alkaline Phosphatase 138 U/L (45-117); Anion Gap 10 meq/L (5-15); Aspartate Aminotransferase 43 U/L (15-37); Blood Urea Nitrogen 54 mg/dL (7-18); Calcium 7.7 mg/dL (8.5-10.1); Carbon Dioxide 26.6 meq/L (21.0-32.0); Chloride 100 meq/L (98-107); Glomerular Filtration Rate 41 mL/min (>89); Glucose,Random 111 mg/dL (74-106); Potassium 4.2 meq/L (3.5-5.1); Sodium 137 meq/L (136-145); Total Protein 6.4 g/dL (6.4-8.2)
--- NOTE | 2018-01-01 09:13 | P.PNCC ---
Subjective Subjective Remarks/Hospital Course: This is a 77-year-old male who initially presented with vision changes and concern for optic neuritis versus temporal arteritis. His initial presentation was on 10/14. His hospital course has been complicated by an NSTEMI with troponins which peaked at 10, ESBL E. coli urinary tract infection, rectal bleeding suspected from bleeding hemorrhoids, acute anemia secondary to blood loss with hemoglobin started around 14 and is trended down to 9.7 this morning. On his initial MRA he was found to have significant atherosclerotic cerebrovascular disease in all vascular territories. Today, he had an acute mental status change and was obtunded. Rapid response and stroke alert was called. His initial NIH stroke scale was 22. Dr. goldstein had conversations with Dr. Ulloa and neurology as well as Dr. sierra with gastroenterology. GI feels comfortable with giving thrombolytics and neurology feels strongly that this patient would benefit from systemic IV TPA therapy. I evaluated the patient on arrival to the intensive care unit. The patient is arousable, but very somnolent. He is [place] speaking, and it is very difficult to ascertain whether or not he can follow commands. He does move all extremities spontaneously, although it appears that his left side is weaker than his right. He has noted facial droop. CT head is negative for acute hemorrhage. CTA head neck is significant for the same multivessel cerebrovascular disease that was present on admission. Given the high-risk nature of the stroke as well as his acute anemia this hospitalization, in preparation for giving emergent IV systemic TPA, I placed an arterial line as well as a large-bore peripheral IV so that we could draw serial labs, monitor his hemoglobin, and give blood products if necessary. I also had an additional discussion with the family where I reconfirmed that their goals were aggressive and they fully understood the significant risk of life-threatening hemorrhage associated with systemic TPA in a patient with new anemia and suspected GI bleeding. The family expressed understanding of his condition and understanding of the heightened risk of life-threatening bleeding, but still urged that we needed to get TPA. Immediately after giving IV TPA, patient had a tonic clonic seizure (witnessed on EEG) and became obtunded with acute hypoxic and hypercarbic respiratory failure and was emergently intubated (see separate procedure note for details). 11/10: remains intubated. encephalopathy persists. hgb stable s/p TPA. ~350cc bloody OG tube output, but this is slowing down. 11/11: more awake. on SBT. follows commands. 11/12: remains extubated. off vasopressors. no changes in mental status. 11/18/17 CCM Reconsult Note Patient was transferred to ICU today after a Halicat was called for AMS, hypoxia , high fever. Apparently patient was lethargic since a.m. in the last hour had been unresponsive and hence Halicat was called. Patient had a fever of 101.4 in a.m., T-max is 101.6. I immediately evaluated the patient in the ICU. Patient is completely unresponsive, oxygen saturation 87% on 4 L nasal cannula. Hypopneic. No response to deep pain. Patient was confirmed to be a full code and I proceeded with endotracheal intubation place him on mechanical ventilation as patient was not protecting airway. More history was obtained from discussion with ID Dr. Jalloh. She indicated patient had been increasingly lethargic with fever and also had urinary retention.She has discontinued Ertapenem, and started on meropenem, vancomycin and micafungin. Cultures have been sent and are pending now. Source of sepsis appears to be aspiration pneumonia versus UTI. Repeat UA and panculture pending at this time. Patient was borderline hypotensive prior to intubation and I have started on Levophed to avoid hypotension post intubation. Receiving 1 L normal saline bolus now, give additional fluid bolus if patient requires continued Levophed will place central line 11/19: remains intubated. holding aggrenox for possible thoracentesis today, but family hesitant to consent with concerns over bleeding risk. Cr remains elevated. discussion with Dr. Bernal, unlikely to benefit currently from draining effusion, so at his recommendation, will proceed with attempted weaning from mechanical ventilation and treat effusion conservatively. 11/20: Overnight /early this a.m. ,the patient was noted to have large amount of rectal bleeding. Aggrenox held since 11/18, 2/2 reintubation. Type and screen ordered. Serial H&H currently be performed. Hemodynamically stable. GI has been reconsulted. Protonix previously given PRN, will schedule BID. Patient was reintubated emergently 11/18, plan for continue CPAP trials. Tube feedings until evaluation by GI. ASA placed on hold , in the setting of GI bleeding. 11/21: EGD and colonoscopy performed yesterday. Patient was noted to be constipated ,disimpacted per GI. Patient noted to have hemorrhoids which was clipped. No further bleeding throughout the night. Chest x-ray showed improvement. CPAP trials initiated this a.m.. ASA 81 mg resumed. 11/22: Patient tolerated CPAP trials approximately 13 hours yesterday. Initiation of tube feeds per GI yesterday, no residuals. This am , family concerned patient not responsive. CT brain , ammonia level and EEG pending. Neurology has been reconsulted. Upon my entering the room, this afternoon, the patient was awake, tracking and squeezing my hand upon commands, with right hand. The patient received 1 u PRBC for Hgb 7.2. Post transfusion CBC pending. Plan for quantification of pleural fluid for possible thoracentesis in a.m.. 11/23: No acute events overnight. Patient remains off all sedation. Noted spontaneous eye opening, tracking following commands squeezing hands right greater than left. Neurology following plan for MRI this a.m., repeat EEG pending. Hemoglobin stable this a.m.. Chest x-ray slight improvement, plan for quantification via ultrasound of pleural effusions for possible thoracentesis today. 3 failed attempts at CPAP trials yesterday. 1548-MRI resulted findings consistent of small areas of acute cortical infarct, new since 11/09/2017. I contacted neurology, Dr. Geronimo informed of results. After Dr. Palma's review of imaging and records, it was determined most likely cardioembolic since is affecting both sides and failure with aspirin and Persantine. Ischemic stroke heparin protocol initiated. Careful review secondary to patient history of GI bleed 11/20, thought to be emanating from hemorrhoid ,however due to poor suboptimal prep, they unable to have optimal visualization per Dr. Jones. 11/24: Late entry note. Patient seen and evaluated 614. No acute events overnight. Patient continues on heparin infusion no active signs of bleeding. PTT within therapeutic range. The patient is less responsive this a.m., spontaneous eye opening, not following my commands. Not moving his extremities spontaneously for me as previously performed yesterday. tube feeds reinitiated. Chest x-ray showed further improvement in aeration of lungs the patient continues on FiO2 of 0.35. Plan for CPAP trials today. 11/25: No acute events overnight. Neurological status unchanged. Spontaneous eye opening patient continues not following any commands. Dr. Geronimo at bedside evaluating patient, no change. Patient tolerated CPAP trials approximately 12 hours yesterday. Tolerating tube feeds. Chest x-ray remains unchanged from yesterday. Hemoccult stool negative. Heparin infusion continued. family at bedside. 11/26: Late entry note. Patient seen at 1240pm. Last night the patient was noted to be continuously hyperglycemic. Levemir added to medication regimen 10 mg/day hemoglobin dropped 2 g/dL in 2 days hemoglobin now 7.7, patient to be transfused 1 unit packed red blood. No obvious signs of bleeding Hemoccult was negative. Patient continues on heparin infusion, patient may require tracheostomy and PEG in the near future . Plan to transition to p.o. anticoagulation post procedures. Neurologically the status is unchanged the patient is opens eyes spontaneously no movement of extremities upon my evaluation. Continued CPAP trials currently greater than 6 hours. 11/27: At 1000am, the patient was noted to have melena, approximated at 150 cc per RN evaluation. Heparin infusion discontinued/placed on hold at 10 AM. Stool for Hemoccult blood sent, GI was contacted and informed of the above events. Stat CT of the abdomen and pelvis with p.o. contrast ordered, results pending. Patient previously had been tolerating trickle feeds at 10 cc an hour with no residuals, after initiation of Reglan 5 mg every 8 hours yesterday. Neurologically the patient status is unchanged. Patient does have spontaneous eye opening but does not follow my commands and does not move extremities. Patient's daughter is at bedside, discussed the above events at which she was present for, she is requesting a repeat colonoscopy. I informed her that a CT of the abdomen and pelvis will be obtained, serial hemoglobin will be evaluated and if needed transfusion will be provided and gastroenterology has been contacted and will determine further management if an invasive procedure is required. Hemoglobin continues to be monitored serially, results pending for 10 AM. The patient received 1 unit packed red blood cells, and current hemoglobin trended overnight 8.9 to 8.2 this a.m., posttransfusion. 11/28: hgb continues to decline despite being off heparin. no additional GI interventions are available at this time. clearly the patient has failed anticoagulation with 2 life-threatening bleeding episodes. Although it is clear he may have additional strokes off anticoagulation, we have clear evidence that we are hurting his overall clinical care with his anticoagulation. I explained this at length to the daughter and medical decision maker. however, she insists that she would rather see him of bleeding rather than have any more strokes , and insists that "we can always keep giving him blood". I explained that blood is not without risk, and there is significant risk to anticoagulation, but she is insistent that he be given anticoagulation to prevent further strokes and she has weighed the risks and benefits after having full informed consent, insists upon us restarting the heparin drip. At her insistence, I have restarted it. In addition, I have counseled her that I do not think he will survive this hospitalization, and he will require tracheostomy for further aggressive care. She states that we are not at "day 14" on the vent, and it is not time for a tracheostomy yet. This is a second intubation and we are certainly at risk for complications from endotracheal intubation, and tracheostomy would be the most appropriate next step for this patient, but the family is refusing until WednesdayDecember 01. 11/29 Patient remains intubated, on no sedation. Afebrile. 11/30 No events overnight. Patient tolerated CPAP for most of day yesterday. Remains on Heparin drip. 12/01 Patient remains intubated tolerated CPAP for several hrs yesterday. s/p CT guided right thoracentesis with removal 500ml pleural fluid. On Heparin drip 12/02 No events overnight. Heparin drip stopped this morning for trach and PEG placement today. Afebrile. 12/03 Patient s/p trach and PEG tube placement yesterday. Had bleeding from around trach and PEG tube insertion sites Heparin drip held last night. s/p transfusion 1u PRBC yesterday Hgb 8.0 this morning. Afebrile. On no sedation. 12/04: Continues to have bruising from PEG tube insertion site. Trach site appears to have stopped. Hemoglobin 7 the same receiving 1 unit FFP and 1 PRBCs. Tube feeds of been resumed. On no sedation. 12/05: Afebrile. No further bleeding noted from the tracheostomy site. Overnight reported by the RN that the PEG tube site continues to bleed Surgicel was placed around the opening, small amount of bleeding still noted. Patient hemoglobin remained 7 patient to be transfused 1 unit PRBC's fibrinogen level pending INR within normal limits. 12/06 Patient s/p transfusion 2u PRBC yesterday Hgb 9.5 this morning from 7.2 last night. No bleeding from trach site however patient still having rectal bleeding. 12/07 No events overnight. On ventilator via trach Hgb 9.8 this morning for colonoscopy today. 12/08: seen and examined around 06:30am. no significant change in mental status. hgb 8.9 this AM. remains on heparin drip at [facility]. 12/09: no improvements or changes. very deconditioned. garcia has remained in without clear indication. had 1 episode of urinary retention, but this is a clear source of infection and an additional serious infection would certainly be life-threatening. 12/10 Patient is now on TP's with 28% FIO2, Afebrile. On Heparin drip. 12/11: remains on t-piece x > 48h. no change in neuro exam. remains on heparin drip with stable hgb 7.8. Subjective: 12/12: asked to see patient again today by the hospitalist service for change in condition. I have evaluated the patient and he does not clinically appear any different than yesterday. HR actually lower than yesterday. bladder scan suggestive of 600cc retention. patient has had urinary retention before, although has also had multiple hospital acquired urinary tract infections. risk/ benefit at this time would be in favor of serial q6h straight catheterizations. remains hemodynamically stable. some emesis today and evidence of ileus. 12/31 Reconsult for resp distress Patient is 77 yo with chronic resp failure, trach/PEG tube placement, CVA transferred to [facility] [place] for resp distress trach changes to #6 and patient was placed on mechanical ventilation. CXR showed increasing consolidation patient was given Lasix prior to arrival to [facility]. 01/01 Patient is on ventilator via trach. Afebrile. Objective Vital Signs / I&O: Vital Signs 12/31/17 10:00 12/31/17 11:38 12/31/17 12:00 Temperature 98.6 F Pulse Rate 94 H 90 Respiratory Rate 16 16 Blood Pressure 101/60 Pulse Oximetry 100 100 12/31/17 14:00 12/31/17 15:31 12/31/17 16:00 Temperature 98.3 F Pulse Rate 90 93 H Respiratory Rate 24 16 Blood Pressure 105/56 L Pulse Oximetry 97 100 12/31/17 18:00 12/31/17 19:00 12/31/17 19:39 Temperature Pulse Rate 93 H 91 H Respiratory Rate 16 Blood Pressure Pulse Oximetry 99 12/31/17 19:44 12/31/17 20:00 12/31/17 22:00 Temperature 98.7 F Pulse Rate 91 H 93 H Respiratory Rate 16 16 Blood Pressure 106/57 L Pulse Oximetry 100 99 12/31/17 22:15 01/01/18 00:00 01/01/18 01:25 Temperature 98.7 F Pulse Rate 92 H Respiratory Rate 14 16 15 Blood Pressure 90/55 L Pulse Oximetry 99 98 99 01/01/18 02:00 01/01/18 04:00 01/01/18 04:13 Temperature 98.7 F Pulse Rate 92 H 91 H Respiratory Rate 16 15 Blood Pressure 87/53 L Pulse Oximetry 98 99 01/01/18 06:00 01/01/18 06:11 01/01/18 08:00 Temperature Pulse Rate 91 H 90 Respiratory Rate 16 13 Blood Pressure Pulse Oximetry 97 Intake & Output 12/31/17 01/01/18 01/01/18 18:59 06:59 18:59 Intake Total 1000 / 1000 0 / 0 Output Total 400 / 400 Balance 999 / 999 -400 / -400 Weight 88.2 kg Intake: IV 100 / 100 Keppra Inj 500 MG In NS Inj 100 100 / 100 ML @ 400 mls/hr IV.SIG Q12H EDE Rx#:[id number] Oral 0 / 0 0 / 0 Tube Feeding 360 / 360 Tube Irrigant 60 / 60 Water Bolus Amount 480 / 480 Output: Emesis Urine Amount (Catheter) 400 / 400 Straight 400 / 400 Other: # Voids 4 2 # Incontinent Voids 4 Date of Last Bowel Movement 12/31/17 12/31/17 # Bowel Movements 4 # Incontinent Bowel Movements 4 Result Diagrams: 01/01/18 05:24 01/01/18 05:24 Objective Remarks: GENERAL: Patient is 77 yo encephalopathy on ventilator SKIN: Warm and dry. HEAD: Normocephalic. EYES: No scleral icterus. No injection or drainage. NECK: Supple, trachea midline. No JVD or lymphadenopathy. + trach CARDIOVASCULAR: Regular rate and rhythm without murmurs, gallops, or rubs. RESPIRATORY: Breath sounds equal bilaterally. No accessory muscle use. GASTROINTESTINAL: Abdomen soft, non-tender, nondistended. +PEG tube in place MUSCULOSKELETAL: No cyanosis, or edema. Neuro: Encephalopathic Assessment and Plan - Assessment and Plan Plan: 1)Chronic resp failure s/p trach/PEG 2)Encephalopathy 3)CVA 4)Anemia 5)s/p NSTEMI 6)Optic neuritis Plan Neuro Impression: Monitor neuro status, spoke to patient's daughter she would like 2nd opinion for neurology and requested Dr. Geronimo. patient with encephalopathy, seizures, L ENID infarct. Status post systemic TPA on November 09 Repeat MRI unchanged; EEG with moderate encephalopathy on aspirin, Plavix, statin Neuro is following, on Ritalin, Keppra On Coumadin with INR 2 today Neuropsychology is following Optic neuritis. Status post treatment with IV hydrocortisone CV: NSTEMI Echo 10/19: LV systolic function is moderately reduced, EF 40-45%. Per Cardiology the repeat echo shows similar EF not reduced as reported. HR better since we resumed Coreg. Continue Aspirin, statin, Plavix Cardiology following- Dr. Hernández Monitor HR and BP keep MAP>65mmHg Hold Cardura 2mg daily and Coreg 3.125mg BID for low BP On Lipitor 80mg qhs Pulm: Continue with vent support keep sat >92% Trach changed from cuffless to size 6 on 12/31 Bronchodilators, ICU vent bundle Check CXR GI Nutrition via PEG tube. Continue tube feeds : Monitor renal function, electrolytes replacement per protocol d/c Lasix for worsening renal function. Cr: 1.63 today ID Sepsis, UTI 12/31 Wound cx: GNR - ESBL E. coli +blood cultures on 10/24. Completed course of antibiotics. Urine culture on December 10 with Pseudomonas, pansensitive. Cipro stopped 12/17 -ID signed off 12/08; araujo-cultures if T >101F Start Zosyn Monitor for signs of infections ( Fever, WBC) check sputum cx Skin Scrotal Edema/ulcerations Has been evaluated by Urology: continue with clean intermittent catheter as needed, scrotal elevation Sacral wound -Seen by Plastic surgery; debridement declined per patient's family -Wound care is following- apply dressings per wound management recommendations Heme: Anemia GI bleed; Status post EGD colonoscopy. GI has signed off, patient with healed rectal ulcers and hemorrhoids. Monitor CBC, coags- on Coumadin with INR 3.3 today Endo SSI , lantus 5u qhs for glycemic control GI prophylaxis- on Pepcid DVT prophylaxis- On Coumadin with INR 3.3 Level 3
[2018-01-01] MEDS ORDERED: Sodium Chlor 0.9% Inj 250 ML IV.SIG ONE (09:19)
[2018-01-01] MEDS ORDERED: Piperacil/Tazo 4.5 GM Premix 4.5 GM/100 ML BAG IV.SIG SCH (10:00)
[2018-01-01] MEDS: Famotidine 20 MG Tablet PO SCH ×2 (10:46→21:22)
[2018-01-01] MEDS: Hydrocortisone Acetate 25 MG Supp RECTAL SCH ×3 (10:47→21:32)
[2018-01-01] MEDS: Chlorhexidine 0.12% Oral Kit 15 ML UDC SWISH-SPIT SCH ×2 (10:47→21:24)
[2018-01-01] MEDS: Polyethylene Glycol 3350 17 GM Packet PO SCH ×2 (10:48→16:29)
[2018-01-01] MEDS: Methylphenidate HCl 5 MG Tablet PO SCH ×3 (14:47→18:54)
[2018-01-01] MEDS: Collagenase Oint 30 GM Tube TOPICAL SCH (16:29)
[2018-01-01] MEDS: Insulin Detemir Inj 1,000 UNIT/10 ML Vial SQ SCH (21:31)
[2018-01-02] MEDS: Insulin NovoLIN Regular Correctional Sugar Inj SQ SCH ×4 (00:39→17:40)
[2018-01-02 05:48] LABS: Baso % (Auto) 0.4 % (0.0-2.0); Eos # (Auto) 0.1 th/mm3 (0.0-0.4); Eos % (Auto) 1.4 % (0.0-4.0); Hemoglobin 7.9 gm/dL (13.0-17.0); Lymph # (Auto) 3.3 th/mm3 (1.0-4.8); Lymph % (Auto) 30.9 % (9.0-44.0); Mean Corpuscular HGB Conc 32.9 % (32.0-36.0); Mean Corpuscular Hemoglobin 29.3 pg (27.0-34.0); Mean Corpuscular Volume 89.1 fL (80.0-100.0); Mono % (Auto) 8.9 % (0.0-8.0); Neut # (Auto) 6.3 th/mm3 (1.8-7.7); Neut % (Auto) 58.4 % (16.0-70.0); Platelet Count 480 th/mm3 (150-450); Red Blood Count 2.69 mil/mm3 (4.50-5.90); Red Cell Distribution Width 21.1 % (11.6-17.2); White Blood Count 10.8 th/mm3 (4.0-11.0)
[2018-01-02 05:50] LABS: Prothrombin Time 30.5 sec (9.8-11.6)
[2018-01-02 06:12] LABS: Alanine Aminotransferase 45 U/L (12-78); Albumin 1.1 g/dL (3.4-5.0); Anion Gap 11 meq/L (5-15); Aspartate Aminotransferase 51 U/L (15-37); Blood Urea Nitrogen 51 mg/dL (7-18); Calcium 7.5 mg/dL (8.5-10.1); Carbon Dioxide 25.4 meq/L (21.0-32.0); Chloride 103 meq/L (98-107); Glomerular Filtration Rate 42 mL/min (>89); Glucose,Random 120 mg/dL (74-106); Potassium 4.1 meq/L (3.5-5.1); Sodium 139 meq/L (136-145)
[2018-01-02 06:14] LABS: Alkaline Phosphatase 137 U/L (45-117); Total Protein 6.3 g/dL (6.4-8.2)
[2018-01-02] MEDS: Famotidine 20 MG Tablet PO SCH ×2 (08:16→21:33)
[2018-01-02] MEDS: Polyethylene Glycol 3350 17 GM Packet PO SCH (08:16)
[2018-01-02] MEDS: Hydrocortisone Acetate 25 MG Supp RECTAL SCH ×2 (08:17→21:33)
[2018-01-02] MEDS: Chlorhexidine 0.12% Oral Kit 15 ML UDC SWISH-SPIT SCH ×2 (08:18→21:35)
--- NOTE | 2018-01-02 08:59 | P.PNCC ---
Subjective Subjective Remarks/Hospital Course: This is a 77-year-old male who initially presented with vision changes and concern for optic neuritis versus temporal arteritis. His initial presentation was on 10/14. His hospital course has been complicated by an NSTEMI with troponins which peaked at 10, ESBL E. coli urinary tract infection, rectal bleeding suspected from bleeding hemorrhoids, acute anemia secondary to blood loss with hemoglobin started around 14 and is trended down to 9.7 this morning. On his initial MRA he was found to have significant atherosclerotic cerebrovascular disease in all vascular territories. Today, he had an acute mental status change and was obtunded. Rapid response and stroke alert was called. His initial NIH stroke scale was 22. Dr. goldstein had conversations with Dr. Ulloa and neurology as well as Dr. sierra with gastroenterology. GI feels comfortable with giving thrombolytics and neurology feels strongly that this patient would benefit from systemic IV TPA therapy. I evaluated the patient on arrival to the intensive care unit. The patient is arousable, but very somnolent. He is Wolof speaking, and it is very difficult to ascertain whether or not he can follow commands. He does move all extremities spontaneously, although it appears that his left side is weaker than his right. He has noted facial droop. CT head is negative for acute hemorrhage. CTA head neck is significant for the same multivessel cerebrovascular disease that was present on admission. Given the high-risk nature of the stroke as well as his acute anemia this hospitalization, in preparation for giving emergent IV systemic TPA, I placed an arterial line as well as a large-bore peripheral IV so that we could draw serial labs, monitor his hemoglobin, and give blood products if necessary. I also had an additional discussion with the family where I reconfirmed that their goals were aggressive and they fully understood the significant risk of life-threatening hemorrhage associated with systemic TPA in a patient with new anemia and suspected GI bleeding. The family expressed understanding of his condition and understanding of the heightened risk of life-threatening bleeding, but still urged that we needed to get TPA. Immediately after giving IV TPA, patient had a tonic clonic seizure (witnessed on EEG) and became obtunded with acute hypoxic and hypercarbic respiratory failure and was emergently intubated (see separate procedure note for details). 11/10: remains intubated. encephalopathy persists. hgb stable s/p TPA. ~350cc bloody OG tube output, but this is slowing down. 11/11: more awake. on SBT. follows commands. 11/12: remains extubated. off vasopressors. no changes in mental status. 11/18/17 CCM Reconsult Note Patient was transferred to ICU today after a Halicat was called for AMS, hypoxia , high fever. Apparently patient was lethargic since a.m. in the last hour had been unresponsive and hence Halicat was called. Patient had a fever of 101.4 in a.m., T-max is 101.6. I immediately evaluated the patient in the ICU. Patient is completely unresponsive, oxygen saturation 87% on 4 L nasal cannula. Hypopneic. No response to deep pain. Patient was confirmed to be a full code and I proceeded with endotracheal intubation place him on mechanical ventilation as patient was not protecting airway. More history was obtained from discussion with ID Dr. Jalloh. She indicated patient had been increasingly lethargic with fever and also had urinary retention.She has discontinued Ertapenem, and started on meropenem, vancomycin and micafungin. Cultures have been sent and are pending now. Source of sepsis appears to be aspiration pneumonia versus UTI. Repeat UA and panculture pending at this time. Patient was borderline hypotensive prior to intubation and I have started on Levophed to avoid hypotension post intubation. Receiving 1 L normal saline bolus now, give additional fluid bolus if patient requires continued Levophed will place central line 11/19: remains intubated. holding aggrenox for possible thoracentesis today, but family hesitant to consent with concerns over bleeding risk. Cr remains elevated. discussion with Dr. Bernal, unlikely to benefit currently from draining effusion, so at his recommendation, will proceed with attempted weaning from mechanical ventilation and treat effusion conservatively. 11/20: Overnight /early this a.m. ,the patient was noted to have large amount of rectal bleeding. Aggrenox held since 11/18, 2/2 reintubation. Type and screen ordered. Serial H&H currently be performed. Hemodynamically stable. GI has been reconsulted. Protonix previously given PRN, will schedule BID. Patient was reintubated emergently 11/18, plan for continue CPAP trials. Tube feedings until evaluation by GI. ASA placed on hold , in the setting of GI bleeding. 11/21: EGD and colonoscopy performed yesterday. Patient was noted to be constipated ,disimpacted per GI. Patient noted to have hemorrhoids which was clipped. No further bleeding throughout the night. Chest x-ray showed improvement. CPAP trials initiated this a.m.. ASA 81 mg resumed. 11/22: Patient tolerated CPAP trials approximately 13 hours yesterday. Initiation of tube feeds per GI yesterday, no residuals. This am , family concerned patient not responsive. CT brain , ammonia level and EEG pending. Neurology has been reconsulted. Upon my entering the room, this afternoon, the patient was awake, tracking and squeezing my hand upon commands, with right hand. The patient received 1 u PRBC for Hgb 7.2. Post transfusion CBC pending. Plan for quantification of pleural fluid for possible thoracentesis in a.m.. 11/23: No acute events overnight. Patient remains off all sedation. Noted spontaneous eye opening, tracking following commands squeezing hands right greater than left. Neurology following plan for MRI this a.m., repeat EEG pending. Hemoglobin stable this a.m.. Chest x-ray slight improvement, plan for quantification via ultrasound of pleural effusions for possible thoracentesis today. 3 failed attempts at CPAP trials yesterday. 1548-MRI resulted findings consistent of small areas of acute cortical infarct, new since 11/09/2017. I contacted neurology, Dr. Geronimo informed of results. After Dr. Palma's review of imaging and records, it was determined most likely cardioembolic since is affecting both sides and failure with aspirin and Persantine. Ischemic stroke heparin protocol initiated. Careful review secondary to patient history of GI bleed 11/20, thought to be emanating from hemorrhoid ,however due to poor suboptimal prep, they unable to have optimal visualization per Dr. Jones. 11/24: Late entry note. Patient seen and evaluated 614. No acute events overnight. Patient continues on heparin infusion no active signs of bleeding. PTT within therapeutic range. The patient is less responsive this a.m., spontaneous eye opening, not following my commands. Not moving his extremities spontaneously for me as previously performed yesterday. tube feeds reinitiated. Chest x-ray showed further improvement in aeration of lungs the patient continues on FiO2 of 0.35. Plan for CPAP trials today. 11/25: No acute events overnight. Neurological status unchanged. Spontaneous eye opening patient continues not following any commands. Dr. Geronimo at bedside evaluating patient, no change. Patient tolerated CPAP trials approximately 12 hours yesterday. Tolerating tube feeds. Chest x-ray remains unchanged from yesterday. Hemoccult stool negative. Heparin infusion continued. family at bedside. 11/26: Late entry note. Patient seen at 1240pm. Last night the patient was noted to be continuously hyperglycemic. Levemir added to medication regimen 10 mg/day hemoglobin dropped 2 g/dL in 2 days hemoglobin now 7.7, patient to be transfused 1 unit packed red blood. No obvious signs of bleeding Hemoccult was negative. Patient continues on heparin infusion, patient may require tracheostomy and PEG in the near future . Plan to transition to p.o. anticoagulation post procedures. Neurologically the status is unchanged the patient is opens eyes spontaneously no movement of extremities upon my evaluation. Continued CPAP trials currently greater than 6 hours. 11/27: At 1000am, the patient was noted to have melena, approximated at 150 cc per RN evaluation. Heparin infusion discontinued/placed on hold at 10 AM. Stool for Hemoccult blood sent, GI was contacted and informed of the above events. Stat CT of the abdomen and pelvis with p.o. contrast ordered, results pending. Patient previously had been tolerating trickle feeds at 10 cc an hour with no residuals, after initiation of Reglan 5 mg every 8 hours yesterday. Neurologically the patient status is unchanged. Patient does have spontaneous eye opening but does not follow my commands and does not move extremities. Patient's daughter is at bedside, discussed the above events at which she was present for, she is requesting a repeat colonoscopy. I informed her that a CT of the abdomen and pelvis will be obtained, serial hemoglobin will be evaluated and if needed transfusion will be provided and gastroenterology has been contacted and will determine further management if an invasive procedure is required. Hemoglobin continues to be monitored serially, results pending for 10 AM. The patient received 1 unit packed red blood cells, and current hemoglobin trended overnight 8.9 to 8.2 this a.m., posttransfusion. 11/28: hgb continues to decline despite being off heparin. no additional GI interventions are available at this time. clearly the patient has failed anticoagulation with 2 life-threatening bleeding episodes. Although it is clear he may have additional strokes off anticoagulation, we have clear evidence that we are hurting his overall clinical care with his anticoagulation. I explained this at length to the daughter and medical decision maker. however, she insists that she would rather see him of bleeding rather than have any more strokes , and insists that "we can always keep giving him blood". I explained that blood is not without risk, and there is significant risk to anticoagulation, but she is insistent that he be given anticoagulation to prevent further strokes and she has weighed the risks and benefits after having full informed consent, insists upon us restarting the heparin drip. At her insistence, I have restarted it. In addition, I have counseled her that I do not think he will survive this hospitalization, and he will require tracheostomy for further aggressive care. She states that we are not at "day 14" on the vent, and it is not time for a tracheostomy yet. This is a second intubation and we are certainly at risk for complications from endotracheal intubation, and tracheostomy would be the most appropriate next step for this patient, but the family is refusing until WednesdayDecember 01. 11/29 Patient remains intubated, on no sedation. Afebrile. 11/30 No events overnight. Patient tolerated CPAP for most of day yesterday. Remains on Heparin drip. 12/01 Patient remains intubated tolerated CPAP for several hrs yesterday. s/p CT guided right thoracentesis with removal 500ml pleural fluid. On Heparin drip 12/02 No events overnight. Heparin drip stopped this morning for trach and PEG placement today. Afebrile. 12/03 Patient s/p trach and PEG tube placement yesterday. Had bleeding from around trach and PEG tube insertion sites Heparin drip held last night. s/p transfusion 1u PRBC yesterday Hgb 8.0 this morning. Afebrile. On no sedation. 12/04: Continues to have bruising from PEG tube insertion site. Trach site appears to have stopped. Hemoglobin 7 the same receiving 1 unit FFP and 1 PRBCs. Tube feeds of been resumed. On no sedation. 12/05: Afebrile. No further bleeding noted from the tracheostomy site. Overnight reported by the RN that the PEG tube site continues to bleed Surgicel was placed around the opening, small amount of bleeding still noted. Patient hemoglobin remained 7 patient to be transfused 1 unit PRBC's fibrinogen level pending INR within normal limits. 12/06 Patient s/p transfusion 2u PRBC yesterday Hgb 9.5 this morning from 7.2 last night. No bleeding from trach site however patient still having rectal bleeding. 12/07 No events overnight. On ventilator via trach Hgb 9.8 this morning for colonoscopy today. 12/08: seen and examined around 06:30am. no significant change in mental status. hgb 8.9 this AM. remains on heparin drip at [facility]. 12/09: no improvements or changes. very deconditioned. garcia has remained in without clear indication. had 1 episode of urinary retention, but this is a clear source of infection and an additional serious infection would certainly be life-threatening. 12/10 Patient is now on TP's with 28% FIO2, Afebrile. On Heparin drip. 12/11: remains on t-piece x > 48h. no change in neuro exam. remains on heparin drip with stable hgb 7.8. Subjective: 12/12: asked to see patient again today by the hospitalist service for change in condition. I have evaluated the patient and he does not clinically appear any different than yesterday. HR actually lower than yesterday. bladder scan suggestive of 600cc retention. patient has had urinary retention before, although has also had multiple hospital acquired urinary tract infections. risk/ benefit at this time would be in favor of serial q6h straight catheterizations. remains hemodynamically stable. some emesis today and evidence of ileus. 12/31 Reconsult for resp distress Patient is 77 yo with chronic resp failure, trach/PEG tube placement, CVA transferred to [facility] [place] for resp distress trach changes to #6 and patient was placed on mechanical ventilation. CXR showed increasing consolidation patient was given Lasix prior to arrival to [facility] [place] [facility]. 01/01 Patient is on ventilator via trach. Afebrile. 01/02 No events overnight. On no drips, Afebrile, CPAP 15/5 with 35% FIO2 overnight. Objective Vital Signs / I&O: Vital Signs 01/01/18 10:00 01/01/18 12:00 01/01/18 12:09 Temperature 99 F Pulse Rate 92 H 92 H Respiratory Rate 16 18 26 H Blood Pressure 100/56 L Pulse Oximetry 97 98 01/01/18 14:00 01/01/18 16:00 01/01/18 16:17 Temperature 97.8 F Pulse Rate 92 H 87 Respiratory Rate 17 18 Blood Pressure 90/50 L Pulse Oximetry 99 99 01/01/18 18:00 01/01/18 19:00 01/01/18 19:38 Temperature Pulse Rate 87 Respiratory Rate 21 Blood Pressure Pulse Oximetry 100 98 01/01/18 19:40 01/01/18 20:00 01/01/18 22:00 Temperature 98.3 F Pulse Rate 88 91 H 84 Respiratory Rate 28 H 26 H Blood Pressure 102/56 L Pulse Oximetry 100 01/02/18 00:00 01/02/18 00:20 01/02/18 02:00 Temperature 98.4 F Pulse Rate 85 82 Respiratory Rate 20 18 Blood Pressure 88/49 L Pulse Oximetry 99 100 01/02/18 04:00 01/02/18 04:10 01/02/18 06:00 Temperature 99.1 F Pulse Rate 87 92 H Respiratory Rate 20 20 Blood Pressure 90/55 L Pulse Oximetry 99 99 01/02/18 07:00 01/02/18 08:00 Temperature Pulse Rate 92 H Respiratory Rate 18 Blood Pressure Pulse Oximetry 97 Intake & Output 01/01/18 01/02/18 01/02/18 18:59 06:59 18:59 Intake Total 955 / 955 695 / 695 Output Total 1100 / 1100 800 / 800 Balance -145 / -145 -105 / -105 Weight 88.2 kg Intake: IV 315 / 315 105 / 105 Keppra Inj 500 MG In NS Inj 100 315 / 315 105 / 105 ML @ 400 mls/hr IV.SIG Q12H [facility] Rx#:[id number] Tube Feeding 320 / 320 440 / 440 Tube Irrigant 120 / 120 150 / 150 Water Bolus Amount 200 / 200 Output: Urine Amount (Catheter) 1100 / 1100 800 / 800 Indwelling Urethral Catheter 800 / 800 Straight 1100 / 1100 Other: Date of Last Bowel Movement 12/31/17 01/01/18 # Bowel Movements 2 Result Diagrams: 01/02/18 05:21 01/02/18 05:21 Other Results: Laboratory Results - last 12 hr 01/01/18 01/02/18 01/02/18 23:21 05:21 05:21 WBC 10.8 RBC 2.69 L Hgb 7.9 L Hct 24.0 L MCV 89.1 MCH 29.3 MCHC 32.9 RDW 21.1 H Plt Count 480 H MPV 8.0 Neut % (Auto) 58.4 Lymph % (Auto) 30.9 Sierra % (Auto) 8.9 H Eos % (Auto) 1.4 Baso % (Auto) 0.4 Neut # (Auto) 6.3 Lymph # (Auto) 3.3 Sierra # (Auto) 1.0 H Eos # (Auto) 0.1 Baso # (Auto) 0.0 WBC Differential . Differential Comment Auto diff final PT 30.5 H INR 3.0 Sodium Potassium Chloride Carbon Dioxide Anion Gap BUN Creatinine Estimated GFR POC Glucose 146 H Random Glucose Calcium Total Bilirubin AST ALT Alkaline Phosphatase Total Protein Albumin 01/02/18 05:21 WBC RBC Hgb Hct MCV MCH MCHC RDW Plt Count MPV Neut % (Auto) Lymph % (Auto) Sierra % (Auto) Eos % (Auto) Baso % (Auto) Neut # (Auto) Lymph # (Auto) Sierra # (Auto) Eos # (Auto) Baso # (Auto) WBC Differential Differential Comment PT INR Sodium 139 Potassium 4.1 Chloride 103 Carbon Dioxide 25.4 Anion Gap 11 BUN 51 H Creatinine 1.59 H Estimated GFR 42 L POC Glucose Random Glucose 120 H Calcium 7.5 L Total Bilirubin 0.3 AST 51 H ALT 45 Alkaline Phosphatase 137 H Total Protein 6.3 L Albumin 1.1 L Objective Remarks: GENERAL: Patient is 77 yo encephalopathy on ventilator SKIN: Warm and dry. HEAD: Normocephalic. EYES: No scleral icterus. No injection or drainage. NECK: Supple, trachea midline. No JVD or lymphadenopathy. + trach CARDIOVASCULAR: Regular rate and rhythm without murmurs, gallops, or rubs. RESPIRATORY: Breath sounds equal bilaterally. No accessory muscle use. GASTROINTESTINAL: Abdomen soft, non-tender, nondistended. +PEG tube in place MUSCULOSKELETAL: No cyanosis, or edema. Neuro: Encephalopathic Assessment and Plan - Assessment and Plan Plan: 1)Chronic resp failure s/p trach/PEG 2)Encephalopathy 3)CVA 4)Anemia 5)s/p NSTEMI 6)Optic neuritis Plan Neuro Impression: Monitor neuro status, spoke to patient's daughter she would like 2nd opinion for neurology Reconsult neuro patient with encephalopathy, seizures, L ENID infarct. Status post systemic TPA on November 09 Repeat MRI unchanged; EEG with moderate encephalopathy on aspirin, Plavix, statin Neuro is following, on Ritalin, Keppra On Coumadin with INR 3 today Neuropsychology is following Optic neuritis. Status post treatment with IV hydrocortisone CV: NSTEMI Echo 10/19: LV systolic function is moderately reduced, EF 40-45%. Cardiology following- Dr. Hernández Monitor HR and BP keep MAP>65mmHg Cardura 2mg daily and Coreg 3.125mg BID on hold On Lipitor 80mg qhs Pulm: Continue with vent support keep sat >92% Trach changed from cuffless to size 6 on 12/31 Bronchodilators, ICU vent bundle Pulm toilet, trach care SBT daily as [facility] Continue tube feeds-Glucerna 1.5 with goal rate 60ml/hr On Pepcid 10mg BID : Monitor renal function, electrolytes replacement per protocol Cr: 1.59 today from 1.63 ID UTI 12/31 Wound cx: ESBL E.coli - ESBL E. coli +blood cultures on 10/24. Completed course of antibiotics. Urine culture on December 10 with Pseudomonas, pansensitive. Cipro stopped 12/17 -ID signed off 12/08; reconsult ID Abx (Primaxin) Monitor for signs of infections ( Fever, WBC) Follow on sputum and Urine cx Skin Scrotal Edema/ulcerations Has been evaluated by Urology: continue with clean intermittent catheter as needed, scrotal elevation Sacral wound -Seen by Plastic surgery; debridement declined per patient's family -Wound care is following- apply dressings per wound management recommendations Heme: Anemia GI bleed; Status post EGD colonoscopy. GI has signed off, patient with healed rectal ulcers and hemorrhoids. Monitor CBC, coags- on Coumadin with INR 3.0 today Endo On SSI for glycemic control GI prophylaxis- on Pepcid DVT prophylaxis- On Coumadin with INR 3.3 Level 3
[2018-01-02] MEDS ORDERED: ASP: Documented ESBL, MDR A baumannii or P. aeruginosa OTHER PRN (09:07)
[2018-01-02] MEDS ORDERED: Piperacil/Tazo 3.375 GM Premix 50 ML IV.SIG SCH (10:00)
--- NOTE | 2018-01-02 12:01 | MR ---
EXAM DATE: 01/02/2018 11:50 AM EDT AGE/SEX: 77 years / Male INDICATIONS: CVA. CLINICAL DATA: This is the patient's initial encounter. Patient reports that signs and symptoms have been present for 1 day and indicates a pain score of 0/10. MEDICAL/SURGICAL HISTORY: Renal insufficiency, chronic. Diabetes mellitus type II. Cardiovasc ular disease. Coronary artery stent. ORIF leg COMPARISON: [facility] [place], MRI BRAIN W/O CONTRAST, 12/24/2017. . TECHNIQUE: Multiplanar, multisequence examination of the brain was performed without contrast. FINDINGS: Cerebrum: Area of high T2 signal abnormality within the region of the left corpus callosum and splen ium with restricted diffusion. The ventricles are normal for age. No evidence of midline shift, mass lesion or hemorrhage. No extraaxial fluid collections are seen. The pituitary gland and suprasella r cistern are normal in configuration. White Matter: No significant signal abnormalities are seen in the white matter. Posterior Fossa: The cerebellum and brainstem are intact. The 4th ventricle is midline. The cerebel lopontine angle is unremarkable. The cerebellar tonsils are normal in position. Diffusion Imaging: There is restricted diffusion described above. . Extracranial: The visualized portions of the orbits and paranasal sinuses are unremarkable. CONCLUSION: 1. 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 2. Cerebral atrophy and chronic ischemic small vessel vasculopathy. Electronically signed by: Thai Lopez MD 01/02/2018 12:00 PM EDT
[2018-01-02] MEDS: Methylphenidate HCl 5 MG Tablet PO SCH ×3 (13:23→13:29)
[2018-01-02] MEDS: Collagenase Oint 30 GM Tube TOPICAL SCH (13:24)
--- NOTE | 2018-01-02 17:14 | P.PNID ---
Subjective Remarks: is a 77-year-old male of descent possibly from [place] with past medical history significant for hypertension and diabetes. Patient presented to the emergency department with complaints of 10 day history of blurry vision in his right eye with associated pain to the right alevism. History of cataract surgery 6 weeks ago. His symptoms got progressively worse over the last 10 days so he decided to come in. He complains of blurry vision, tenderness to palpation of his right alevism as well as pain in brushing his hair. Patient reports no jaw claudication normalities or unintentional weight loss. He went to [facility] and saw office agent Dr. Zimmerman who sent him to the ED to rule out orbital pseudotumor or temporal arteritis. MRI of the orbits show edema involving the right optic nerve. An MRA of the brain showed severe diffuse atherosclerotic disease. Inflammatory markers were ESR of 12, CRP of 0.51. Patient receives Solu-Medrol to 50 mg IV in the emergency room. Patient reportedly was doing okay and observed in the ICU. Patient was seen by radio maintainer Dr. Diaz who is thinking of doing a temporal artery biopsy and thinks this possibly could be giant cell arteritis. And recommended continuing IV Solu-Medrol. Overnight on October 24, 2017 patient developed signs and symptoms suggestive of sepsis and a sepsis alert was called. The 19 hospitalists ordered sepsis workup including blood and urine cultures. The blood cultures are positive for ESBL E. coli and urine cultures are positive for gram-negative. Patient has been started on empiric Zosyn IV. Blood cultures have now been reported as ESBL based on Klaus gene testing. Clinically patient appears to be deteriorating on Zosyn IV as well making this more likely an ESBL E. coli infection. Infectious diseases initially followed for E. coli ESBL bacteremia and UTI. His hospital course was complicated by Vent dependence, Pneumonia and PSAE UTI. Patient had a fever on 12/15/2017 he had blood cultures done which are negative. Other workup negative so far. ID reconsult by for ESBL in Sacral cultures, GNR UTI and Fevers. Overnight events reviewed with RN. Low grade temps overnight No diarrhea No rash Opens eyes spontaneously but does not follow commands. Sacral decub with black eschar but no surrounding erythema noted. Antibiotics: Imipenem IV Lines: Lines ok Past Medical History: reviewed Allergies/Adverse Reactions: Allergies No Known Allergies Allergy (Verified 12/25/17 11:22) Objective Vital Signs 01/01/18 18:00 01/01/18 19:00 01/01/18 19:38 Temperature Pulse Rate 87 Respiratory Rate 21 Blood Pressure Pulse Oximetry 100 98 01/01/18 19:40 01/01/18 20:00 01/01/18 22:00 Temperature 98.3 F Pulse Rate 88 91 H 84 Respiratory Rate 28 H 26 H Blood Pressure 102/56 L Pulse Oximetry 100 01/02/18 00:00 01/02/18 00:20 01/02/18 02:00 Temperature 98.4 F Pulse Rate 85 82 Respiratory Rate 20 18 Blood Pressure 88/49 L Pulse Oximetry 99 100 01/02/18 04:00 01/02/18 04:10 01/02/18 06:00 Temperature 99.1 F Pulse Rate 87 92 H Respiratory Rate 20 20 Blood Pressure 90/55 L Pulse Oximetry 99 99 01/02/18 07:00 01/02/18 08:00 01/02/18 10:00 Temperature 100.1 F H Pulse Rate 88 92 H Respiratory Rate 25 H Blood Pressure 87/49 L Pulse Oximetry 94 L 01/02/18 12:00 01/02/18 14:00 01/02/18 16:00 Temperature 98.0 F 97.9 F Pulse Rate 95 H 96 H 96 H Respiratory Rate 20 20 Blood Pressure 110/84 117/59 L Pulse Oximetry Intake & Output 01/01/18 01/02/18 01/02/18 18:59 06:59 18:59 Intake Total 955 / 955 695 / 695 205 / 205 Output Total 1100 / 1100 800 / 800 Balance -145 / -145 -105 / -105 205 / 205 Weight 88.2 kg Intake: IV 315 / 315 105 / 105 205 / 205 Primaxin Inj 500 MG In NS Inj 100 / 100 100 ML @ 200 mls/hr IV.SIG Q8H EDE Rx#:[id number] Keppra Inj 500 MG In NS Inj 100 315 / 315 105 / 105 105 / 105 ML @ 400 mls/hr IV.SIG Q12H EDE Rx#:[id number] Tube Feeding 320 / 320 440 / 440 Tube Irrigant 120 / 120 150 / 150 Water Bolus Amount 200 / 200 Output: Urine Amount (Catheter) 1100 / 1100 800 / 800 Indwelling Urethral Catheter 800 / 800 Straight 1100 / 1100 Other: Date of Last Bowel Movement 12/31/17 01/01/18 01/01/18 # Bowel Movements 2 01/01/18 16:31 Sputum - Endotracheal Gram Stain - Final 01/01/18 16:31 Sputum - Endotracheal Sputum Culture - Preliminary gram negative rods 12/31/17 22:58 Catheterized Urine Urine Culture - Preliminary gram negative rods 12/30/17 17:00 Fluid - Other Gram Stain - Final 12/30/17 17:00 Fluid - Other Body Fluid Culture - Preliminary Escherichia coli ESBL positive Lab - Hematology Results 01/01/18 01/02/18 01/02/18 05:24 05:21 05:21 WBC 10.4 10.8 RBC 2.57 L 2.69 L Hgb 7.6 L 7.9 L Hct 22.8 L 24.0 L MCV 88.7 89.1 MCH 29.7 29.3 MCHC 33.5 32.9 RDW 21.1 H 21.1 H Plt Count 438 480 H MPV 8.3 8.0 Neut % (Auto) 49.0 58.4 Lymph % (Auto) 38.7 30.9 [place] % (Auto) 11.6 H 8.9 H Eos % (Auto) 0.4 1.4 Baso % (Auto) 0.3 0.4 Neut # (Auto) 5.1 6.3 Lymph # (Auto) 4.0 3.3 [place] # (Auto) 1.2 H 1.0 H Eos # (Auto) 0.0 0.1 Baso # (Auto) 0.0 0.0 WBC Differential . . Differential Comment Auto diff final Auto diff final ESR Greater than 140 H Lab - Chemistry Results 12/31/17 01/01/18 01/01/18 17:07 01:04 05:24 Sodium 137 Potassium 4.2 D Chloride 100 Carbon Dioxide 26.6 Anion Gap 10 BUN 54 H Creatinine 1.63 H Estimated GFR 41 L POC Glucose 199 H 161 H Random Glucose 111 H D Calcium 7.7 L Total Bilirubin 0.3 AST 43 H ALT 41 Alkaline Phosphatase 138 H Total Protein 6.4 Albumin 1.1 L 01/01/18 01/01/18 01/01/18 06:01 14:35 18:03 Sodium Potassium Chloride Carbon Dioxide Anion Gap BUN Creatinine Estimated GFR POC Glucose 138 H 137 H 159 H Random Glucose Calcium Total Bilirubin AST ALT Alkaline Phosphatase Total Protein Albumin 01/01/18 01/02/18 01/02/18 23:21 05:21 12:55 Sodium 139 Potassium 4.1 Chloride 103 Carbon Dioxide 25.4 Anion Gap 11 BUN 51 H Creatinine 1.59 H Estimated GFR 42 L POC Glucose 146 H 175 H Random Glucose 120 H Calcium 7.5 L Total Bilirubin 0.3 AST 51 H ALT 45 Alkaline Phosphatase 137 H Total Protein 6.3 L Albumin 1.1 L Imaging: ITS Impressions Chest X-Ray 12/31/17 07:38 CONCLUSION: Worsening lung opacity characteristic of increasing consolidation and pleural fluid accumulation. Head MRI 01/02/18 00:00 CONCLUSION: 1. 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 2. Cerebral atrophy and chronic ischemic small vessel vasculopathy. Physical Exam: GENERAL: Patient is 77 yo on ventilator SKIN: Warm and dry. HEAD: Normocephalic. EYES: No scleral icterus. No injection or drainage. NECK: Supple, trachea midline. + trach CARDIOVASCULAR: HS audible. RESPIRATORY: Breath sounds equal bilaterally. No accessory muscle use. GASTROINTESTINAL: Abdomen soft, non-tender, nondistended. +PEG tube in place MUSCULOSKELETAL: No cyanosis, or edema. Neuro: Opens eyes spontaneously, does not track, follows simple commands Sacral decub area with black eschar noted but no surrounding erythema. IV line sites with no e.o infection. Assessment and Plan - Plan Sacral decub with possible underlying infection, osteomyelitis. Prior h/o ESBL E.coli on 10/24/2017. Possible HCAP GNR UTI ? ESBL given h/o ESBL. 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 Encephalopathy: strokes in hospital, optic neuritis on presentation. Recs: Continue Imipenem IV Follow cultures Follow clinically. Follow CXR in am. Reviewed CXR with bilateral effusions and consolidation. Sacral decub has eschar with possible underlying osteomyelitis. Patient family refused surgical debridement. Trav Owens. Overall poor quality of life and prognosis but family still wants aggressive care based on recent discussions. Consider palliative care follow up.
--- NOTE | 2018-01-02 17:24 | MB ---
cc: Marcello Pereira MD, PhD DATE: 01/02/2018 REASON FOR CONSULTATION: History of stroke, mental status change. HISTORY OF PRESENT ILLNESS: Mr. Glynn is a 77-year-old man who was admitted to the hospital initially with concerns of possible optic neuritis versus temporal arteritis in September. He was also found to have a myocardial infarction. A temporal artery biopsy was being considered; however, in view of the fact of the acute cardiac symptoms was deferred. He also developed Escherichia coli urinary tract infection. He had rectal bleeding thought to be due to bleeding hemorrhoids, anemia. The patient also developed acute mental status change, was obtunded. A stroke alert was called. He was evaluated by Dr. Ulloa, who recommended IV TPA. The GI service felt that there was no contraindication and the patient did receive IV TPA. He has been evaluated with imaging studies. At the time of the stroke alert, on 11/09/2017, he had a neck CT angiogram performed, which showed about 50% stenosis at the distal right internal carotid artery. Moderate plaquing of the left carotid with no significant stenosis. 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 He had a CTA of the brain at that time showing patchy areas of moderate potentially hemodynamically significant stenosis involving the M1 and M2 segments bilaterally, but no large vessel occlusion was identified. There was a 60% stenosis of the right internal carotid artery at the level of the base of the skull. CT of the brain has been unremarkable. He did have an MRI of the brain performed on 12/24/2017, which showed evidence of an infarction involving the left corpus callosum and splenium of the corpus callosum with no hemorrhages. The patient has undergone tracheostomy placement. He is ventilator dependent. He was on IV heparin and now on Coumadin with a high INR, which is therefore on hold. The patient is nonresponsive. CURRENT MEDICATIONS: 1. Tylenol. 2. Lipitor. 3. Coreg. 4. Peridex. 5. Cardura. 6. Haldol p.r.n. 7. He was on IV heparin, currently on Coumadin, which is on hold. 8. Dilaudid p.r.n. 9. Keppra 500 mg every 12 hours. 10. Ritalin 10 mg b.i.d. 11. Reglan 5 mg IV q. 8 hours. 12. Zofran p.r.n. nausea. 13. MiraLax. 14. Proctofoam rectally. 15. Senokot. NEUROLOGICAL EXAMINATION: VITAL SIGNS: His blood pressure is 90/55, pulse 92, temperature 99.1 degrees. Higher cortical function, the patient's eyes are open, but he is not responsive. Does not follow any commands. CRANIAL NERVES: Pupils are equal, reactive. Extraocular movements are intact to doll's eye maneuver. There is no facial asymmetry. MOTOR: He has no spontaneous limb movement of the upper or lower extremities. IMPRESSION: 1. Evidence of left corpus callosum stroke on MRI of the brain, status post stroke alert with IV TPA administered. 2. Possible history of optic neuritis versus temporal arteritis. RECOMMENDATIONS: Recommend repeating the MRI of the brain to follow up on the stroke and also to rule out any new strokes. We will also check a sedimentation rate, CRP to evaluate for the possibility of temporal arteritis. Also, EEG, rule out subclinical seizure activity. Marcello Pereira MD, PhD JON/TEDDY , 10:23 AM , 10:47 AM
--- NOTE | 2018-01-02 21:08 | MG ---
cc: Marcello Pereira MD, PhD DATE OF THE STUDY: 01/02/2018. TEST NUMBER: [id number]. TECHNIQUE: A 17-channel EEG. DESCRIPTION: Background rhythm reveals generalized slowing in the theta and delta frequencies ranging from 4 to 6 Hz. Amplitude is about 20 microvolts. There are no lateralizing features present. There are no epileptiform discharges present. Photic results in no significant driving response. INTERPRETATION: Abnormal study, consistent with diffuse encephalopathy. Marcello Pereira MD, PhD JON/RORY , 07:13 PM , 09:07 PM
[2018-01-03] MEDS: Insulin NovoLIN Regular Correctional Sugar Inj SQ SCH ×5 (01:26→18:30)
--- NOTE | 2018-01-03 03:14 | XR ---
EXAM DATE: 01/03/2018 2:34 AM EDT AGE/SEX: 77 years / Male INDICATIONS: Difficulty breathing. CLINICAL DATA: This is the patient's subsequent encounter. Patient reports that signs and symptoms h ave been present for 2 days and indicates a pain score of Nonresponsive. MEDICAL/SURGICAL HISTORY: . : Renal insufficiency, chronic. Diabetes mellitus type II. Cardiova scular disease. . Coronary artery stent. ORIF leg COMPARISON: [facility], CHEST 1V SINGLE AP, 12/31/2017. . FINDINGS: Stable tracheostomy. Persistent bilateral hazy opacities and associated airspace disease in the lower lung zones. Cardiomediastinal contours are stable. Remainder of the exam is unchanged. CONCLUSION: 1. No significant interval change. 2. Stable bilateral pleural effusions and associated lower lobe airspace disease. Electronically signed by: Coleman Alfaro MD 01/03/2018 3:12 AM EDT
[2018-01-03 06:57] LABS: Baso % (Auto) 0.3 % (0.0-2.0); Eos # (Auto) 0.1 th/mm3 (0.0-0.4); Eos % (Auto) 1.1 % (0.0-4.0); Hemoglobin 8.1 gm/dL (13.0-17.0); Lymph # (Auto) 4.4 th/mm3 (1.0-4.8); Lymph % (Auto) 36.3 % (9.0-44.0); Mean Corpuscular HGB Conc 32.3 % (32.0-36.0); Mean Corpuscular Volume 89.9 fL (80.0-100.0); Mean Platelet Volume 8.2 fL (7.0-11.0); Mono # (Auto) 1.2 th/mm3 (0.0-0.9); Mono % (Auto) 9.9 % (0.0-8.0); Neut # (Auto) 6.4 th/mm3 (1.8-7.7); Neut % (Auto) 52.4 % (16.0-70.0); Platelet Count 511 th/mm3 (150-450); Red Blood Count 2.78 mil/mm3 (4.50-5.90); Red Cell Distribution Width 21.8 % (11.6-17.2); White Blood Count 12.2 th/mm3 (4.0-11.0)
[2018-01-03 06:58] LABS: INR 2.1 Ratio; Prothrombin Time 21.7 sec (9.8-11.6)
[2018-01-03 07:19] LABS: Albumin 1.2 g/dL (3.4-5.0); Anion Gap 10 meq/L (5-15); Blood Urea Nitrogen 44 mg/dL (7-18); Calcium 7.7 mg/dL (8.5-10.1); Carbon Dioxide 25.7 meq/L (21.0-32.0); Chloride 104 meq/L (98-107); Glomerular Filtration Rate 43 mL/min (>89); Glucose,Random 194 mg/dL (74-106); Potassium 4.4 meq/L (3.5-5.1); Sodium 140 meq/L (136-145)
[2018-01-03 07:25] LABS: Alanine Aminotransferase 41 U/L (12-78); Alkaline Phosphatase 145 U/L (45-117); Aspartate Aminotransferase 39 U/L (15-37); Total Protein 6.7 g/dL (6.4-8.2)
--- NOTE | 2018-01-03 07:35 | P.PNCC ---
Subjective Subjective Remarks/Hospital Course: This is a 77-year-old male who initially presented with vision changes and concern for optic neuritis versus temporal arteritis. His initial presentation was on 10/14. His hospital course has been complicated by an NSTEMI with troponins which peaked at 10, ESBL E. coli urinary tract infection, rectal bleeding suspected from bleeding hemorrhoids, acute anemia secondary to blood loss with hemoglobin started around 14 and is trended down to 9.7 this morning. On his initial MRA he was found to have significant atherosclerotic cerebrovascular disease in all vascular territories. Today, he had an acute mental status change and was obtunded. Rapid response and stroke alert was called. His initial NIH stroke scale was 22. Dr. goldstein had conversations with Dr. Ulloa and neurology as well as Dr. sierra with gastroenterology. GI feels comfortable with giving thrombolytics and neurology feels strongly that this patient would benefit from systemic IV TPA therapy. I evaluated the patient on arrival to the intensive care unit. The patient is arousable, but very somnolent. He is [place]ian speaking, and it is very difficult to ascertain whether or not he can follow commands. He does move all extremities spontaneously, although it appears that his left side is weaker than his right. He has noted facial droop. CT head is negative for acute hemorrhage. CTA head neck is significant for the same multivessel cerebrovascular disease that was present on admission. Given the high-risk nature of the stroke as well as his acute anemia this hospitalization, in preparation for giving emergent IV systemic TPA, I placed an arterial line as well as a large-bore peripheral IV so that we could draw serial labs, monitor his hemoglobin, and give blood products if necessary. I also had an additional discussion with the family where I reconfirmed that their goals were aggressive and they fully understood the significant risk of life-threatening hemorrhage associated with systemic TPA in a patient with new anemia and suspected GI bleeding. The family expressed understanding of his condition and understanding of the heightened risk of life-threatening bleeding, but still urged that we needed to get TPA. Immediately after giving IV TPA, patient had a tonic clonic seizure (witnessed on EEG) and became obtunded with acute hypoxic and hypercarbic respiratory failure and was emergently intubated (see separate procedure note for details). 11/10: remains intubated. encephalopathy persists. hgb stable s/p TPA. ~350cc bloody OG tube output, but this is slowing down. 11/11: more awake. on SBT. follows commands. 11/12: remains extubated. off vasopressors. no changes in mental status. 11/18/17 CCM Reconsult Note Patient was transferred to ICU today after a Halicat was called for AMS, hypoxia , high fever. Apparently patient was lethargic since a.m. in the last hour had been unresponsive and hence Halicat was called. Patient had a fever of 101.4 in a.m., T-max is 101.6. I immediately evaluated the patient in the ICU. Patient is completely unresponsive, oxygen saturation 87% on 4 L nasal cannula. Hypopneic. No response to deep pain. Patient was confirmed to be a full code and I proceeded with endotracheal intubation place him on mechanical ventilation as patient was not protecting airway. More history was obtained from discussion with ID Dr. Jalloh. She indicated patient had been increasingly lethargic with fever and also had urinary retention.She has discontinued Ertapenem, and started on meropenem, vancomycin and micafungin. Cultures have been sent and are pending now. Source of sepsis appears to be aspiration pneumonia versus UTI. Repeat UA and panculture pending at this time. Patient was borderline hypotensive prior to intubation and I have started on Levophed to avoid hypotension post intubation. Receiving 1 L normal saline bolus now, give additional fluid bolus if patient requires continued Levophed will place central line 11/19: remains intubated. holding aggrenox for possible thoracentesis today, but family hesitant to consent with concerns over bleeding risk. Cr remains elevated. discussion with Dr. Bernal, unlikely to benefit currently from draining effusion, so at his recommendation, will proceed with attempted weaning from mechanical ventilation and treat effusion conservatively. 11/20: Overnight /early this a.m. ,the patient was noted to have large amount of rectal bleeding. Aggrenox held since 11/18, 2/2 reintubation. Type and screen ordered. Serial H&H currently be performed. Hemodynamically stable. GI has been reconsulted. Protonix previously given PRN, will schedule BID. Patient was reintubated emergently 11/18, plan for continue CPAP trials. Tube feedings until evaluation by GI. ASA placed on hold , in the setting of GI bleeding. 11/21: EGD and colonoscopy performed yesterday. Patient was noted to be constipated ,disimpacted per GI. Patient noted to have hemorrhoids which was clipped. No further bleeding throughout the night. Chest x-ray showed improvement. CPAP trials initiated this a.m.. ASA 81 mg resumed. 11/22: Patient tolerated CPAP trials approximately 13 hours yesterday. Initiation of tube feeds per GI yesterday, no residuals. This am , family concerned patient not responsive. CT brain , ammonia level and EEG pending. Neurology has been reconsulted. Upon my entering the room, this afternoon, the patient was awake, tracking and squeezing my hand upon commands, with right hand. The patient received 1 u PRBC for Hgb 7.2. Post transfusion CBC pending. Plan for quantification of pleural fluid for possible thoracentesis in a.m.. 11/23: No acute events overnight. Patient remains off all sedation. Noted spontaneous eye opening, tracking following commands squeezing hands right greater than left. Neurology following plan for MRI this a.m., repeat EEG pending. Hemoglobin stable this a.m.. Chest x-ray slight improvement, plan for quantification via ultrasound of pleural effusions for possible thoracentesis today. 3 failed attempts at CPAP trials yesterday. 1548-MRI resulted findings consistent of small areas of acute cortical infarct, new since 11/09/2017. I contacted neurology, Dr. Geronimo informed of results. After Dr. Palma's review of imaging and records, it was determined most likely cardioembolic since is affecting both sides and failure with aspirin and Persantine. Ischemic stroke heparin protocol initiated. Careful review secondary to patient history of GI bleed 11/20, thought to be emanating from hemorrhoid ,however due to poor suboptimal prep, they unable to have optimal visualization per Dr. Jones. 11/24: Late entry note. Patient seen and evaluated 614. No acute events overnight. Patient continues on heparin infusion no active signs of bleeding. PTT within therapeutic range. The patient is less responsive this a.m., spontaneous eye opening, not following my commands. Not moving his extremities spontaneously for me as previously performed yesterday. tube feeds reinitiated. Chest x-ray showed further improvement in aeration of lungs the patient continues on FiO2 of 0.35. Plan for CPAP trials today. 11/25: No acute events overnight. Neurological status unchanged. Spontaneous eye opening patient continues not following any commands. Dr. Geronimo at bedside evaluating patient, no change. Patient tolerated CPAP trials approximately 12 hours yesterday. Tolerating tube feeds. Chest x-ray remains unchanged from yesterday. Hemoccult stool negative. Heparin infusion continued. family at bedside. 11/26: Late entry note. Patient seen at 1240pm. Last night the patient was noted to be continuously hyperglycemic. Levemir added to medication regimen 10 mg/day hemoglobin dropped 2 g/dL in 2 days hemoglobin now 7.7, patient to be transfused 1 unit packed red blood. No obvious signs of bleeding Hemoccult was negative. Patient continues on heparin infusion, patient may require tracheostomy and PEG in the near future . Plan to transition to p.o. anticoagulation post procedures. Neurologically the status is unchanged the patient is opens eyes spontaneously no movement of extremities upon my evaluation. Continued CPAP trials currently greater than 6 hours. 11/27: At 1000am, the patient was noted to have melena, approximated at 150 cc per RN evaluation. Heparin infusion discontinued/placed on hold at 10 AM. Stool for Hemoccult blood sent, GI was contacted and informed of the above events. Stat CT of the abdomen and pelvis with p.o. contrast ordered, results pending. Patient previously had been tolerating trickle feeds at 10 cc an hour with no residuals, after initiation of Reglan 5 mg every 8 hours yesterday. Neurologically the patient status is unchanged. Patient does have spontaneous eye opening but does not follow my commands and does not move extremities. Patient's daughter is at bedside, discussed the above events at which she was present for, she is requesting a repeat colonoscopy. I informed her that a CT of the abdomen and pelvis will be obtained, serial hemoglobin will be evaluated and if needed transfusion will be provided and gastroenterology has been contacted and will determine further management if an invasive procedure is required. Hemoglobin continues to be monitored serially, results pending for 10 AM. The patient received 1 unit packed red blood cells, and current hemoglobin trended overnight 8.9 to 8.2 this a.m., posttransfusion. 11/28: hgb continues to decline despite being off heparin. no additional GI interventions are available at this time. clearly the patient has failed anticoagulation with 2 life-threatening bleeding episodes. Although it is clear he may have additional strokes off anticoagulation, we have clear evidence that we are hurting his overall clinical care with his anticoagulation. I explained this at length to the daughter and medical decision maker. however, she insists that she would rather see him of bleeding rather than have any more strokes , and insists that "we can always keep giving him blood". I explained that blood is not without risk, and there is significant risk to anticoagulation, but she is insistent that he be given anticoagulation to prevent further strokes and she has weighed the risks and benefits after having full informed consent, insists upon us restarting the heparin drip. At her insistence, I have restarted it. In addition, I have counseled her that I do not think he will survive this hospitalization, and he will require tracheostomy for further aggressive care. She states that we are not at "day 14" on the vent, and it is not time for a tracheostomy yet. This is a second intubation and we are certainly at risk for complications from endotracheal intubation, and tracheostomy would be the most appropriate next step for this patient, but the family is refusing until WednesdayDecember 01. 11/29 Patient remains intubated, on no sedation. Afebrile. 11/30 No events overnight. Patient tolerated CPAP for most of day yesterday. Remains on Heparin drip. 12/01 Patient remains intubated tolerated CPAP for several hrs yesterday. s/p CT guided right thoracentesis with removal 500ml pleural fluid. On Heparin drip 12/02 No events overnight. Heparin drip stopped this morning for trach and PEG placement today. Afebrile. 12/03 Patient s/p trach and PEG tube placement yesterday. Had bleeding from around trach and PEG tube insertion sites Heparin drip held last night. s/p transfusion 1u PRBC yesterday Hgb 8.0 this morning. Afebrile. On no sedation. 12/04: Continues to have bruising from PEG tube insertion site. Trach site appears to have stopped. Hemoglobin 7 the same receiving 1 unit FFP and 1 PRBCs. Tube feeds of been resumed. On no sedation. 12/05: Afebrile. No further bleeding noted from the tracheostomy site. Overnight reported by the RN that the PEG tube site continues to bleed Surgicel was placed around the opening, small amount of bleeding still noted. Patient hemoglobin remained 7 patient to be transfused 1 unit PRBC's fibrinogen level pending INR within normal limits. 12/06 Patient s/p transfusion 2u PRBC yesterday Hgb 9.5 this morning from 7.2 last night. No bleeding from trach site however patient still having rectal bleeding. 12/07 No events overnight. On ventilator via trach Hgb 9.8 this morning for colonoscopy today. 12/08: seen and examined around 06:30am. no significant change in mental status. hgb 8.9 this AM. remains on heparin drip at [facility]. 12/09: no improvements or changes. very deconditioned. garcia has remained in without clear indication. had 1 episode of urinary retention, but this is a clear source of infection and an additional serious infection would certainly be life-threatening. 12/10 Patient is now on TP's with 28% FIO2, Afebrile. On Heparin drip. 12/11: remains on t-piece x > 48h. no change in neuro exam. remains on heparin drip with stable hgb 7.8. Subjective: 12/12: asked to see patient again today by the hospitalist service for change in condition. I have evaluated the patient and he does not clinically appear any different than yesterday. HR actually lower than yesterday. bladder scan suggestive of 600cc retention. patient has had urinary retention before, although has also had multiple hospital acquired urinary tract infections. risk/ benefit at this time would be in favor of serial q6h straight catheterizations. remains hemodynamically stable. some emesis today and evidence of ileus. 12/31 Reconsult for resp distress Patient is 77 yo with chronic resp failure, trach/PEG tube placement, CVA transferred to [facility] for resp distress trach changes to #6 and patient was placed on mechanical ventilation. CXR showed increasing consolidation patient was given Lasix prior to arrival to [facility]. 01/01 Patient is on ventilator via trach. Afebrile. 01/02 No events overnight. On no drips, Afebrile, CPAP 15/5 with 35% FIO2 overnight. 01/03 Remained on TP breathing comfortably. CXR shows bilateral effusions. Will get CT chest. Give single dose of lasix. ID consulted and following, no fever in 24 hours Objective Vital Signs / I&O: Vital Signs 01/02/18 08:00 01/02/18 10:00 01/02/18 12:00 Temperature 100.1 F H 98.0 F Pulse Rate 88 92 H 95 H Respiratory Rate 25 H 20 Blood Pressure 87/49 L 110/84 Pulse Oximetry 01/02/18 14:00 01/02/18 16:00 01/02/18 18:00 Temperature 97.9 F Pulse Rate 96 H 96 H 96 H Respiratory Rate 20 Blood Pressure 117/59 L Pulse Oximetry 01/02/18 19:00 01/02/18 20:00 01/02/18 20:08 Temperature 98.8 F Pulse Rate 96 H 96 H Respiratory Rate 25 H 21 Blood Pressure 101/63 Pulse Oximetry 98 98 01/02/18 22:00 01/03/18 00:00 01/03/18 02:00 Temperature 99.5 F Pulse Rate 101 H 96 H 100 H Respiratory Rate 27 H Blood Pressure 93/50 L Pulse Oximetry 01/03/18 04:00 01/03/18 06:00 Temperature 98.8 F Pulse Rate 101 H 100 H Respiratory Rate 25 H Blood Pressure 113/60 Pulse Oximetry Intake & Output 01/02/18 01/03/18 01/03/18 18:59 06:59 18:59 Intake Total 953 / 953 810 / 810 Output Total 700 / 700 650 / 650 Balance 253 / 253 160 / 160 Weight 88.2 kg Intake: IV 305 / 305 205 / 205 Primaxin Inj 500 MG In NS Inj 200 / 200 100 / 100 100 ML @ 200 mls/hr IV.SIG Q8H EDE Rx#:[id number] Keppra Inj 500 MG In NS Inj 100 105 / 105 105 / 105 ML @ 400 mls/hr IV.SIG Q12H EDE Rx#:[id number] Oral 0 / 0 Tube Feeding 468 / 468 455 / 455 Tube Irrigant 120 / 120 Water Bolus Amount 60 / 60 150 / 150 Output: Urine Amount (Catheter) 700 / 700 650 / 650 Indwelling Urethral Catheter 700 / 700 650 / 650 Other: Date of Last Bowel Movement 01/02/18 01/03/18 # Bowel Movements 1 1 Result Diagrams: 01/03/18 05:20 01/03/18 06:00 Objective Remarks: GENERAL: Patient is 77 yo encephalopathy on TP SKIN: Warm and dry. HEAD: Normocephalic. EYES: No scleral icterus. No injection or drainage. NECK: Supple, trachea midline. No JVD or lymphadenopathy. + trach CARDIOVASCULAR: Regular rate and rhythm without murmurs, gallops, or rubs. RESPIRATORY: Breath sounds equal bilaterally, diminished at bases. No accessory muscle use. GASTROINTESTINAL: Abdomen soft, non-tender, nondistended. +PEG tube in place MUSCULOSKELETAL: No cyanosis, or edema. Neuro: Encephalopathic, opens eyes to painful stimuli. No spontaneous limb movement of the upper or lower extremities. Assessment and Plan - Assessment and Plan Plan: 1)Chronic resp failure s/p trach/PEG 2)Encephalopathy 3)CVA 4)Anemia 5)s/p NSTEMI 6)Optic neuritis Plan Neuro Impression: Monitor neuro status, spoke to patient's daughter she would like 2nd opinion for neurology Reconsulted neurology and Dr. Pereira has seen patient with encephalopathy, seizures, L ENID infarct. Status post systemic TPA on November 09 Repeat MRI unchanged; EEG with moderate encephalopathy on aspirin, Plavix, statin Neuro is following, on Ritalin, Keppra On Coumadin with INR 2.1 today Neuropsychology is following Optic neuritis. Status post treatment with IV hydrocortisone Encephalopathy persists CV: NSTEMI Echo 10/19: LV systolic function is moderately reduced, EF 40-45%. Cardiology following- Dr. Hernández Monitor HR and BP keep MAP>65mmHg Cardura 2mg daily and Coreg 3.125mg BID on hold On Lipitor 80mg qhs Pulm: Continue with TP keep sat >92% Trach changed from cuffless to size 6 on 12/31 Bronchodilators, ICU vent bundle Pulm toilet, trach care CT chest today to evaluate, infiltrate/effusion GI Continue tube feeds-Glucerna 1.5 with goal rate 60ml/hr On Pepcid 10mg BID : Monitor renal function, electrolytes replacement per protocol Cr: 1.59 today from 1.63 ID UTI 12/31 Wound cx: ESBL E.coli GNR pneumonia - ESBL E. coli +blood cultures on 10/24. Completed course of antibiotics. Urine culture on December 10 with Pseudomonas, pansensitive. Cipro stopped 12/17 -ID signed off 12/08; reconsult ID-Dr. Mariza Estrada following Abx (Primaxin) Monitor for signs of infections ( Fever, WBC) Follow on sputum and Urine cx organism ID Skin Scrotal Edema/ulcerations Has been evaluated by Urology: continue with clean intermittent catheter as needed, scrotal elevation Sacral wound -Seen by Plastic surgery; debridement declined per patient's family -Wound care is following- apply dressings per wound management recommendations Heme: Anemia GI bleed; Status post EGD colonoscopy. GI has signed off, patient with healed rectal ulcers and hemorrhoids. Monitor CBC, coags- on Coumadin with INR 2.1today Endo On SSI for glycemic control GI prophylaxis- on Pepcid DVT prophylaxis- On Coumadin with INR 2.1 Level 3
[2018-01-03] MEDS: Methylphenidate HCl 5 MG Tablet PO SCH ×2 (08:00→12:00)
[2018-01-03] MEDS: Hydrocortisone Acetate 25 MG Supp RECTAL SCH ×3 (08:43→20:50)
[2018-01-03] MEDS: Chlorhexidine 0.12% Oral Kit 15 ML UDC SWISH-SPIT SCH ×3 (08:43→20:50)
[2018-01-03] MEDS: Polyethylene Glycol 3350 17 GM Packet PO SCH (09:00)
--- NOTE | 2018-01-03 10:14 | CT ---
EXAM DATE: 01/03/2018 10:11 AM EDT AGE/SEX: 77 years / Male INDICATIONS: Short of breath. Effusion. CLINICAL DATA: This is the patient's subsequent encounter. Patient reports that signs and symptoms h ave been present for 2 weeks and indicates a pain score of Nonresponsive. MEDICAL/SURGICAL HISTORY: Cardiovascular disease. Diabetes. None. RADIATION DOSE: 14.94 CTDI (mGy) COMPARISON: No prior exams available for comparison. TECHNIQUE: Multiple contiguous axial images were obtained through the chest without contrast. Image s were obtained in suspended respiration using multiple row detector helical technique. Using automa trell exposure control and adjustment of the mA and/or kV according to patient size, radiation dose was kept as low as reasonably achievable to obtain optimal diagnostic quality images. DICOM format imag e data is available electronically for review and comparison. FINDINGS: There are large bilateral pleural effusions with compressive atelectasis in both bases. The heart is enlarged. Coronary stents are noted. There is no pericardial effusion. There is no axillary adenopathy. There is no mediastinal adenopathy. The liver is small reasonably homogeneous. CONCLUSION: 1. Large bilateral pleural effusions occupying more than half of the right and left hemithorax. Electronically signed by: Fady Alcocer MD 01/03/2018 10:13 AM EDT
[2018-01-03] MEDS: Famotidine 20 MG Tablet PO SCH ×2 (15:29→20:49)
[2018-01-03] MEDS: Acetaminophen 325 MG Tablet PO PRN (15:32)
--- NOTE | 2018-01-03 16:02 | P.PN ---
Subjective Interval history: unresponsive on TTUBE CT CHEST, large bilateral effusions Physical Exam Vital signs: Vital Signs 01/02/18 16:00 01/02/18 18:00 01/02/18 19:00 Temperature 97.9 F Pulse Rate 96 H 96 H Respiratory Rate 20 Blood Pressure 117/59 L Pulse Oximetry 98 01/02/18 20:00 01/02/18 20:08 01/02/18 22:00 Temperature 98.8 F Pulse Rate 96 H 96 H 101 H Respiratory Rate 25 H 21 Blood Pressure 101/63 Pulse Oximetry 98 01/03/18 00:00 01/03/18 02:00 01/03/18 04:00 Temperature 99.5 F 98.8 F Pulse Rate 96 H 100 H 101 H Respiratory Rate 27 H 25 H Blood Pressure 93/50 L 113/60 Pulse Oximetry 01/03/18 06:00 01/03/18 07:37 01/03/18 08:00 Temperature Pulse Rate 100 H 98 H 100 H Respiratory Rate 28 H Blood Pressure Pulse Oximetry 95 Intake & Output 01/02/18 01/03/18 01/03/18 18:59 06:59 18:59 Intake Total 953 / 953 810 / 810 Output Total 700 / 700 650 / 650 Balance 253 / 253 160 / 160 Weight 88.2 kg Intake: IV 305 / 305 205 / 205 Primaxin Inj 500 MG In NS Inj 200 / 200 100 / 100 100 ML @ 200 mls/hr IV.SIG Q8H EDE Rx#:[id number] Keppra Inj 500 MG In NS Inj 100 105 / 105 105 / 105 ML @ 400 mls/hr IV.SIG Q12H EDE Rx#:[id number] Oral 0 / 0 Tube Feeding 468 / 468 455 / 455 Tube Irrigant 120 / 120 Water Bolus Amount 60 / 60 150 / 150 Output: Urine Amount (Catheter) 700 / 700 650 / 650 Indwelling Urethral Catheter 700 / 700 650 / 650 Other: Date of Last Bowel Movement 01/02/18 01/03/18 01/03/18 # Bowel Movements 1 1 Narrative: GENERAL: respiratory distress SKIN: Sacral/scrotal wounds not inspected today CARDIOVASCULAR: Tachycardic; regular rhythm without murmurs; normal peripheral perfusion RESPIRATORY: ON THE VENT, DECREASE BREATH SOUNDS AT BASIS GASTROINTESTINAL: Abdomen soft, non-tender, nondistended MUSCULOSKELETAL: No lower extremity edema appreciated Neuro: Noninteractive. Pupils symmetric. Patient nonresponsive/ does not follow- commands - Urinary Catheter Management Straight Cath placed during this visit: yes Reason for continuing: Not indwelling catheter Insertion date: 01/01/18 Insertion time: 16:00 Indwelling Urethral Catheter Cath placed during this visit: yes Reason for continuing: Acute urinary retention Insertion date: 01/01/18 Insertion time: 16:30 Results - Labs CBC & Chem 7: 01/03/18 05:20 01/03/18 06:00 Laboratory Results - last 24 hr 01/02/18 01/02/18 01/03/18 05:21 17:34 00:59 WBC RBC Hgb Hct MCV MCH MCHC RDW Plt Count MPV Neut % (Auto) Lymph % (Auto) [place] % (Auto) Eos % (Auto) Baso % (Auto) Neut # (Auto) Lymph # (Auto) [place] # (Auto) Eos # (Auto) Baso # (Auto) WBC Differential Differential Comment PT INR Sodium Potassium Chloride Carbon Dioxide Anion Gap BUN Creatinine Estimated GFR POC Glucose 201 H 199 H Random Glucose Calcium Total Bilirubin AST ALT Alkaline Phosphatase C-Reactive Protein 13.80 H Total Protein Albumin Blood Bank Comment 01/03/18 01/03/18 01/03/18 05:20 05:49 06:00 WBC 12.2 H RBC 2.78 L Hgb 8.1 L Hct 25.0 L MCV 89.9 MCH 29.0 MCHC 32.3 RDW 21.8 H Plt Count 511 H MPV 8.2 Neut % (Auto) 52.4 Lymph % (Auto) 36.3 [place] % (Auto) 9.9 H Eos % (Auto) 1.1 Baso % (Auto) 0.3 Neut # (Auto) 6.4 Lymph # (Auto) 4.4 [place] # (Auto) 1.2 H Eos # (Auto) 0.1 Baso # (Auto) 0.0 WBC Differential . Differential Comment Auto diff final PT INR Sodium 140 Potassium 4.4 Chloride 104 Carbon Dioxide 25.7 Anion Gap 10 BUN 44 H Creatinine 1.57 H Estimated GFR 43 L POC Glucose 222 H Random Glucose 194 H Calcium 7.7 L Total Bilirubin 0.3 AST 39 H ALT 41 Alkaline Phosphatase 145 H C-Reactive Protein Total Protein 6.7 Albumin 1.2 L Blood Bank Comment 01/03/18 01/03/1801/03/18 06:00 12:06 12:43 WBC RBC Hgb Hct MCV MCH MCHC RDW Plt Count MPV Neut % (Auto) Lymph % (Auto) [place] % (Auto) Eos % (Auto) Baso % (Auto) Neut # (Auto) Lymph # (Auto) [place] # (Auto) Eos # (Auto) Baso # (Auto) WBC Differential Differential Comment PT 21.7 H INR 2.1 Sodium Potassium Chloride Carbon Dioxide Anion Gap BUN Creatinine Estimated GFR POC Glucose 238 H Random Glucose Calcium Total Bilirubin AST ALT Alkaline Phosphatase C-Reactive Protein Total Protein Albumin Blood Bank Comment Microbiology 01/01/18 16:31 Sputum - Endotracheal Gram Stain - Final 01/01/18 16:31 Sputum - Endotracheal Sputum Culture - Final Klebsiella pneumoniae Escherichia coli ESBL positive 01/02/18 18:34 Blood - Peripheral Aerobic Blood Culture - Preliminary No growth in 1 day 01/02/18 18:34 Blood - Peripheral Anaerobic Blood Culture - Preliminary No growth in 1 day 01/02/18 18:20 Blood - Peripheral Aerobic Blood Culture - Preliminary No growth in 1 day 01/02/18 18:20 Blood - Peripheral Anaerobic Blood Culture - Preliminary No growth in 1 day 12/31/17 22:58 Catheterized Urine Urine Culture - Final Escherichia coli ESBL positive 12/30/17 17:00 Fluid - Other Gram Stain - Final 12/30/17 17:00 Fluid - Other Body Fluid Culture - Final Escherichia coli ESBL positive - Imaging Impressions Chest CT 01/03/18 00:00 CONCLUSION: 1. Large bilateral pleural effusions occupying more than half of the right and left hemithorax. Chest X-Ray 01/03/18 06:00 CONCLUSION: 1. No significant interval change. 2. Stable bilateral pleural effusions and associated lower lobe airspace disease. Assessment and Plan - Plan RESPIRATORY FAILURE cva cad respiratory failure post trach bilateral effusions plan FOR CHEST TUBE PLACEMENT HEPARIN POST TUBE PLACEMENT ANTIBX NEEDED PER ID PULM TOILET OUTLOOK POOR
[2018-01-03] MEDS ORDERED: Albumin Human 25% Inj 100 ML IV.SIG ONE ×2 (16:43→18:22)
--- NOTE | 2018-01-03 17:19 | P.PCN ---
Date of procedure: 01/03/18 Pre-op diagnosis: Large right pleural effusion Post-op diagnosis: same Procedure: PROCEDURE: Right pigtail chest tube placement, US guided INDICATION: Acute hypoxemic respiratory failure, large right pleural effusion CONSENT: Consent was obtained from daughter prior to the procedure. Indications , risks, and benefits were explained. PROCEDURE SUMMARY: Chest x-ray, reviewed, the appropriate side was confirmed. Hands were washed immediately prior to the procedure and I wore a surgical cap, mask with protective eyewear, sterile gown and sterile gloves throughout the procedure. The patient was prepped and draped in a sterile manner using chlorhexidine scrub after the appropriate level was confirmed and marked by ultrasound. 1% lidocaine was used to anesthetize the skin, subcutaneous tissue, superior aspect of the rib periosteum and parietal pleura. A small skin incision was made at the marked site and introducer needle was placed over the superior aspect of the rib and advanced until pleural fluid was aspirated. A guide wire was placed and needle was removed, and after dilatation of track, 10F pigtail catheter was placed using Seldinger technique. Pigtail was connected to -20 wall suction, and initial output was 1300 ml of slightly yellow tinged, free flowing pleural fluid. A post-procedure chest x-ray is pending at the time of this note. Estimated blood loss is < 1 ml. Anesthesia: local Surgeon: Angel Dangelo Estimated blood loss (mL): 1 Pathology: none sent Condition: stable Disposition: ICU
--- NOTE | 2018-01-03 17:56 | XR ---
EXAM DATE: 01/03/2018 5:45 PM EDT AGE/SEX: 77 years / Male INDICATIONS: Evaluate right side chest tube. CLINICAL DATA: This is the patient's subsequent encounter. Patient reports that signs and symptoms h ave been present for 1 month and indicates a pain score of Nonresponsive. MEDICAL/SURGICAL HISTORY: Cardiovascular disease. Diabetes. None. [place]PAR[place] [facility] [place]. . FINDINGS: The cardiac silhouette is enlarged in transverse diameter. A tracheostomy tube is in place in the mid line. A right chest tube is in place. There is no evidence of pneumothorax. Moderate size bilateral p leural effusions are present left greater than right. CONCLUSION: Small caliber chest tube right base with decreasing right-sided effusion. There is no evidence of pne umothorax. Electronically signed by: Abundio Fleming MD 01/03/2018 5:55 PM EDT
[2018-01-03] MEDS: Collagenase Oint 30 GM Tube TOPICAL SCH (18:33)
[2018-01-03 19:11] LABS: Total Protein,Pleural Fluid 2.1 gm/dL
[2018-01-03 20:49] LABS: Eosinophils,Pleural Fluid 3 %; Lymphocytes,Pleural Fluid 85 %; Mesothelial,Pleural Fluid 1 %; Monocytes,Pleural Fluid 8 %; Neutrophils,Pleural Fluid 3 %
[2018-01-03 21:03] LABS: RBC,Pleural Fluid 62 /mm3 (0-0)
[2018-01-03 21:14] LABS: INR 1.7 Ratio
[2018-01-03] MEDS ORDERED: Heparin Drip 25,000 UNIT/250 ML BAG IV.CONT PRN (21:26)
[2018-01-03] MEDS: Heparin Drip 25,000 UNIT/250 ML BAG IV.CONT PRN (21:43)
[2018-01-04] MEDS: Insulin NovoLIN Regular Correctional Sugar Inj SQ SCH ×6 (00:41→22:41)
[2018-01-04 05:54] LABS: Hematocrit 25.6 % (39.0-51.0); Hemoglobin 8.4 gm/dL (13.0-17.0); Mean Corpuscular HGB Conc 32.7 % (32.0-36.0); Mean Corpuscular Hemoglobin 29.5 pg (27.0-34.0); Mean Corpuscular Volume 90.2 fL (80.0-100.0); Platelet Count 534 th/mm3 (150-450); Red Blood Count 2.83 mil/mm3 (4.50-5.90); Red Cell Distribution Width 21.5 % (11.6-17.2); White Blood Count 12.7 th/mm3 (4.0-11.0)
[2018-01-04 05:56] LABS: Activated Partial Thrombo Time 42.6 sec (24.3-30.1); INR 1.7 Ratio; Prothrombin Time 16.7 sec (9.8-11.6)
[2018-01-04 06:15] LABS: Albumin 1.6 g/dL (3.4-5.0); Anion Gap 11 meq/L (5-15); Aspartate Aminotransferase 32 U/L (15-37); Blood Urea Nitrogen 46 mg/dL (7-18); Calcium 8.5 mg/dL (8.5-10.1); Carbon Dioxide 27.4 meq/L (21.0-32.0); Chloride 104 meq/L (98-107); Glomerular Filtration Rate 44 mL/min (>89); Glucose,Random 199 mg/dL (74-106); Potassium 4.3 meq/L (3.5-5.1); Sodium 142 meq/L (136-145)
[2018-01-04 06:16] LABS: Alanine Aminotransferase 35 U/L (12-78)
[2018-01-04 06:25] LABS: Alkaline Phosphatase 144 U/L (45-117); Total Protein 7.4 g/dL (6.4-8.2)
--- NOTE | 2018-01-04 07:54 | P.PNCC ---
Subjective Subjective Remarks/Hospital Course: This is a 77-year-old male who initially presented with vision changes and concern for optic neuritis versus temporal arteritis. His initial presentation was on 10/14. His hospital course has been complicated by an NSTEMI with troponins which peaked at 10, ESBL E. coli urinary tract infection, rectal bleeding suspected from bleeding hemorrhoids, acute anemia secondary to blood loss with hemoglobin started around 14 and is trended down to 9.7 this morning. On his initial MRA he was found to have significant atherosclerotic cerebrovascular disease in all vascular territories. Today, he had an acute mental status change and was obtunded. Rapid response and stroke alert was called. His initial NIH stroke scale was 22. Dr. goldstein had conversations with Dr. Ulloa and neurology as well as Dr. sierra with gastroenterology. GI feels comfortable with giving thrombolytics and neurology feels strongly that this patient would benefit from systemic IV TPA therapy. I evaluated the patient on arrival to the intensive care unit. The patient is arousable, but very somnolent. He is [place] speaking, and it is very difficult to ascertain whether or not he can follow commands. He does move all extremities spontaneously, although it appears that his left side is weaker than his right. He has noted facial droop. CT head is negative for acute hemorrhage. CTA head neck is significant for the same multivessel cerebrovascular disease that was present on admission. Given the high-risk nature of the stroke as well as his acute anemia this hospitalization, in preparation for giving emergent IV systemic TPA, I placed an arterial line as well as a large-bore peripheral IV so that we could draw serial labs, monitor his hemoglobin, and give blood products if necessary. I also had an additional discussion with the family where I reconfirmed that their goals were aggressive and they fully understood the significant risk of life-threatening hemorrhage associated with systemic TPA in a patient with new anemia and suspected GI bleeding. The family expressed understanding of his condition and understanding of the heightened risk of life-threatening bleeding, but still urged that we needed to get TPA. Immediately after giving IV TPA, patient had a tonic clonic seizure (witnessed on EEG) and became obtunded with acute hypoxic and hypercarbic respiratory failure and was emergently intubated (see separate procedure note for details). 11/10: remains intubated. encephalopathy persists. hgb stable s/p TPA. ~350cc bloody OG tube output, but this is slowing down. 11/11: more awake. on SBT. follows commands. 11/12: remains extubated. off vasopressors. no changes in mental status. 11/18/17 CCM Reconsult Note Patient was transferred to ICU today after a Halicat was called for AMS, hypoxia , high fever. Apparently patient was lethargic since a.m. in the last hour had been unresponsive and hence Halicat was called. Patient had a fever of 101.4 in a.m., T-max is 101.6. I immediately evaluated the patient in the ICU. Patient is completely unresponsive, oxygen saturation 87% on 4 L nasal cannula. Hypopneic. No response to deep pain. Patient was confirmed to be a full code and I proceeded with endotracheal intubation place him on mechanical ventilation as patient was not protecting airway. More history was obtained from discussion with ID Dr. Jalloh. She indicated patient had been increasingly lethargic with fever and also had urinary retention.She has discontinued Ertapenem, and started on meropenem, vancomycin and micafungin. Cultures have been sent and are pending now. Source of sepsis appears to be aspiration pneumonia versus UTI. Repeat UA and panculture pending at this time. Patient was borderline hypotensive prior to intubation and I have started on Levophed to avoid hypotension post intubation. Receiving 1 L normal saline bolus now, give additional fluid bolus if patient requires continued Levophed will place central line 11/19: remains intubated. holding aggrenox for possible thoracentesis today, but family hesitant to consent with concerns over bleeding risk. Cr remains elevated. discussion with Dr. Bernal, unlikely to benefit currently from draining effusion, so at his recommendation, will proceed with attempted weaning from mechanical ventilation and treat effusion conservatively. 11/20: Overnight /early this a.m. ,the patient was noted to have large amount of rectal bleeding. Aggrenox held since 11/18, 2/2 reintubation. Type and screen ordered. Serial H&H currently be performed. Hemodynamically stable. GI has been reconsulted. Protonix previously given PRN, will schedule BID. Patient was reintubated emergently 11/18, plan for continue CPAP trials. Tube feedings until evaluation by GI. ASA placed on hold , in the setting of GI bleeding. 11/21: EGD and colonoscopy performed yesterday. Patient was noted to be constipated ,disimpacted per GI. Patient noted to have hemorrhoids which was clipped. No further bleeding throughout the night. Chest x-ray showed improvement. CPAP trials initiated this a.m.. ASA 81 mg resumed. 11/22: Patient tolerated CPAP trials approximately 13 hours yesterday. Initiation of tube feeds per GI yesterday, no residuals. This am , family concerned patient not responsive. CT brain , ammonia level and EEG pending. Neurology has been reconsulted. Upon my entering the room, this afternoon, the patient was awake, tracking and squeezing my hand upon commands, with right hand. The patient received 1 u PRBC for Hgb 7.2. Post transfusion CBC pending. Plan for quantification of pleural fluid for possible thoracentesis in a.m.. 11/23: No acute events overnight. Patient remains off all sedation. Noted spontaneous eye opening, tracking following commands squeezing hands right greater than left. Neurology following plan for MRI this a.m., repeat EEG pending. Hemoglobin stable this a.m.. Chest x-ray slight improvement, plan for quantification via ultrasound of pleural effusions for possible thoracentesis today. 3 failed attempts at CPAP trials yesterday. 1548-MRI resulted findings consistent of small areas of acute cortical infarct, new since 11/09/2017. I contacted neurology, Dr. Geronimo informed of results. After Dr. Palma's review of imaging and records, it was determined most likely cardioembolic since is affecting both sides and failure with aspirin and Persantine. Ischemic stroke heparin protocol initiated. Careful review secondary to patient history of GI bleed 11/20, thought to be emanating from hemorrhoid ,however due to poor suboptimal prep, they unable to have optimal visualization per Dr. Jones. 11/24: Late entry note. Patient seen and evaluated 614. No acute events overnight. Patient continues on heparin infusion no active signs of bleeding. PTT within therapeutic range. The patient is less responsive this a.m., spontaneous eye opening, not following my commands. Not moving his extremities spontaneously for me as previously performed yesterday. tube feeds reinitiated. Chest x-ray showed further improvement in aeration of lungs the patient continues on FiO2 of 0.35. Plan for CPAP trials today. 11/25: No acute events overnight. Neurological status unchanged. Spontaneous eye opening patient continues not following any commands. Dr. Geronimo at bedside evaluating patient, no change. Patient tolerated CPAP trials approximately 12 hours yesterday. Tolerating tube feeds. Chest x-ray remains unchanged from yesterday. Hemoccult stool negative. Heparin infusion continued. family at bedside. 11/26: Late entry note. Patient seen at 1240pm. Last night the patient was noted to be continuously hyperglycemic. Levemir added to medication regimen 10 mg/day hemoglobin dropped 2 g/dL in 2 days hemoglobin now 7.7, patient to be transfused 1 unit packed red blood. No obvious signs of bleeding Hemoccult was negative. Patient continues on heparin infusion, patient may require tracheostomy and PEG in the near future . Plan to transition to p.o. anticoagulation post procedures. Neurologically the status is unchanged the patient is opens eyes spontaneously no movement of extremities upon my evaluation. Continued CPAP trials currently greater than 6 hours. 11/27: At 1000am, the patient was noted to have melena, approximated at 150 cc per RN evaluation. Heparin infusion discontinued/placed on hold at 10 AM. Stool for Hemoccult blood sent, GI was contacted and informed of the above events. Stat CT of the abdomen and pelvis with p.o. contrast ordered, results pending. Patient previously had been tolerating trickle feeds at 10 cc an hour with no residuals, after initiation of Reglan 5 mg every 8 hours yesterday. Neurologically the patient status is unchanged. Patient does have spontaneous eye opening but does not follow my commands and does not move extremities. Patient's daughter is at bedside, discussed the above events at which she was present for, she is requesting a repeat colonoscopy. I informed her that a CT of the abdomen and pelvis will be obtained, serial hemoglobin will be evaluated and if needed transfusion will be provided and gastroenterology has been contacted and will determine further management if an invasive procedure is required. Hemoglobin continues to be monitored serially, results pending for 10 AM. The patient received 1 unit packed red blood cells, and current hemoglobin trended overnight 8.9 to 8.2 this a.m., posttransfusion. 11/28: hgb continues to decline despite being off heparin. no additional GI interventions are available at this time. clearly the patient has failed anticoagulation with 2 life-threatening bleeding episodes. Although it is clear he may have additional strokes off anticoagulation, we have clear evidence that we are hurting his overall clinical care with his anticoagulation. I explained this at length to the daughter and medical decision maker. however, she insists that she would rather see him of bleeding rather than have any more strokes , and insists that "we can always keep giving him blood". I explained that blood is not without risk, and there is significant risk to anticoagulation, but she is insistent that he be given anticoagulation to prevent further strokes and she has weighed the risks and benefits after having full informed consent, insists upon us restarting the heparin drip. At her insistence, I have restarted it. In addition, I have counseled her that I do not think he will survive this hospitalization, and he will require tracheostomy for further aggressive care. She states that we are not at "day 14" on the vent, and it is not time for a tracheostomy yet. This is a second intubation and we are certainly at risk for complications from endotracheal intubation, and tracheostomy would be the most appropriate next step for this patient, but the family is refusing until WednesdayDecember 01. 11/29 Patient remains intubated, on no sedation. Afebrile. 11/30 No events overnight. Patient tolerated CPAP for most of day yesterday. Remains on Heparin drip. 12/01 Patient remains intubated tolerated CPAP for several hrs yesterday. s/p CT guided right thoracentesis with removal 500ml pleural fluid. On Heparin drip 12/02 No events overnight. Heparin drip stopped this morning for trach and PEG placement today. Afebrile. 12/03 Patient s/p trach and PEG tube placement yesterday. Had bleeding from around trach and PEG tube insertion sites Heparin drip held last night. s/p transfusion 1u PRBC yesterday Hgb 8.0 this morning. Afebrile. On no sedation. 12/04: Continues to have bruising from PEG tube insertion site. Trach site appears to have stopped. Hemoglobin 7 the same receiving 1 unit FFP and 1 PRBCs. Tube feeds of been resumed. On no sedation. 12/05: Afebrile. No further bleeding noted from the tracheostomy site. Overnight reported by the RN that the PEG tube site continues to bleed Surgicel was placed around the opening, small amount of bleeding still noted. Patient hemoglobin remained 7 patient to be transfused 1 unit PRBC's fibrinogen level pending INR within normal limits. 12/06 Patient s/p transfusion 2u PRBC yesterday Hgb 9.5 this morning from 7.2 last night. No bleeding from trach site however patient still having rectal bleeding. 12/07 No events overnight. On ventilator via trach Hgb 9.8 this morning for colonoscopy today. 12/08: seen and examined around 06:30am. no significant change in mental status. hgb 8.9 this AM. remains on heparin drip at [facility]. 12/09: no improvements or changes. very deconditioned. garcia has remained in without clear indication. had 1 episode of urinary retention, but this is a clear source of infection and an additional serious infection would certainly be life-threatening. 12/10 Patient is now on TP's with 28% FIO2, Afebrile. On Heparin drip. 12/11: remains on t-piece x > 48h. no change in neuro exam. remains on heparin drip with stable hgb 7.8. Subjective: 12/12: asked to see patient again today by the hospitalist service for change in condition. I have evaluated the patient and he does not clinically appear any different than yesterday. HR actually lower than yesterday. bladder scan suggestive of 600cc retention. patient has had urinary retention before, although has also had multiple hospital acquired urinary tract infections. risk/ benefit at this time would be in favor of serial q6h straight catheterizations. remains hemodynamically stable. some emesis today and evidence of ileus. 12/31 Reconsult for resp distress Patient is 77 yo with chronic resp failure, trach/PEG tube placement, CVA transferred to [facility] for resp distress trach changes to #6 and patient was placed on mechanical ventilation. CXR showed increasing consolidation patient was given Lasix prior to arrival to [facility]. 01/01 Patient is on ventilator via trach. Afebrile. 01/02 No events overnight. On no drips, Afebrile, CPAP 15/5 with 35% FIO2 overnight. 01/03 Remained on TP breathing comfortably. CXR shows bilateral effusions. Will get CT chest. Give single dose of lasix. ID consulted and following, no fever in 24 hours 01/04: Remains unresponsive, fever trending down. Sputum culture now growing Klebsiella and ESBL E. coli. Urine culture and wound culture also growing ESBL E. coli. Chest tube placed on the right side yesterday with 1.35 L output since placement. Urine output excellent with single dose of Lasix 2.5 L in 24 hours. No fever in 24 hours. Repeat 40 mg IV Lasix 1 Objective Vital Signs / I&O: Vital Signs 01/03/18 08:00 01/03/18 10:00 01/03/18 12:00 Temperature 98.4 F 98.9 F Pulse Rate 100 H 98 H 99 H Respiratory Rate 25 H 21 Blood Pressure 102/54 L 107/55 L Pulse Oximetry 96 98 01/03/18 14:00 01/03/18 16:00 01/03/18 16:03 Temperature 98.2 F 98.2 F Pulse Rate 99 H 98 H 97 H Respiratory Rate 23 24 Blood Pressure 108/58 L 108/58 L Pulse Oximetry 100 100 01/03/18 16:27 01/03/18 17:08 01/03/18 18:00 Temperature 98.8 F 98.7 F Pulse Rate 94 H 95 H 91 H Respiratory Rate 26 H 22 Blood Pressure 99/58 L 88/44 L Pulse Oximetry 100 97 01/03/18 18:15 01/03/18 18:30 01/03/18 18:45 Temperature Pulse Rate 89 86 87 Respiratory Rate Blood Pressure 98/55 L 98/54 L Pulse Oximetry 100 100 100 01/03/18 19:00 01/03/18 19:15 01/03/18 19:30 Temperature Pulse Rate 86 88 90 Respiratory Rate Blood Pressure 101/59 L 115/65 115/68 Pulse Oximetry 100 100 100 01/03/18 19:45 01/03/18 20:00 01/03/18 20:04 Temperature 97.5 F L Pulse Rate 91 H 92 H 91 H Respiratory Rate 18 21 Blood Pressure 118/69 114/66 Pulse Oximetry 100 100 100 01/03/18 20:15 01/03/18 20:30 01/03/18 20:45 Temperature Pulse Rate 91 H 91 H 91 H Respiratory Rate Blood Pressure 116/65 114/63 113/65 Pulse Oximetry 100 100 100 01/03/18 21:00 01/03/18 21:15 01/03/18 21:30 Temperature Pulse Rate 92 H 93 H 93 H Respiratory Rate Blood Pressure 112/58 L 118/62 119/66 Pulse Oximetry 100 100 100 01/03/18 21:45 01/03/18 22:00 01/03/18 22:15 Temperature Pulse Rate 93 H 93 H 97 H Respiratory Rate 21 Blood Pressure 114/64 116/66 120/70 Pulse Oximetry 100 100 100 01/03/18 22:30 01/03/18 22:45 01/03/18 23:00 Temperature Pulse Rate 95 H 94 H 95 H Respiratory Rate Blood Pressure 120/70 120/67 111/61 Pulse Oximetry 100 100 100 01/03/18 23:15 01/03/18 23:30 01/03/18 23:45 Temperature Pulse Rate 93 H 92 H 92 H Respiratory Rate Blood Pressure 110/62 110/60 113/61 Pulse Oximetry 100 100 100 01/04/18 00:00 01/04/18 00:15 01/04/18 00:30 Temperature 97.8 F Pulse Rate 92 H 92 H 92 H Respiratory Rate Blood Pressure 112/61 114/59 L 114/64 Pulse Oximetry 100 100 100 01/04/18 00:45 01/04/18 01:00 01/04/18 01:15 Temperature Pulse Rate 91 H 96 H 93 H Respiratory Rate Blood Pressure 117/57 L 123/58 L 105/51 L Pulse Oximetry 100 98 100 01/04/18 01:30 01/04/18 01:45 01/04/18 02:00 Temperature Pulse Rate 94 H 93 H 92 H Respiratory Rate Blood Pressure 122/60 115/59 L 112/59 L Pulse Oximetry 100 100 100 01/04/18 02:15 01/04/18 02:30 01/04/18 02:45 Temperature Pulse Rate 94 H 92 H 92 H Respiratory Rate Blood Pressure 108/58 L 112/56 L 108/58 L Pulse Oximetry 100 100 100 01/04/18 03:00 01/04/18 03:15 01/04/18 03:16 Temperature Pulse Rate 92 H 96 H Respiratory Rate Blood Pressure 111/56 L 117/62 Pulse Oximetry 100 100 100 01/04/18 03:30 01/04/18 03:45 01/04/18 04:00 Temperature 97.8 F Pulse Rate 93 H 93 H 93 H Respiratory Rate 20 Blood Pressure 114/60 120/63 119/61 Pulse Oximetry 100 100 100 01/04/18 04:15 01/04/18 04:30 01/04/18 04:45 Temperature Pulse Rate 93 H 95 H 96 H Respiratory Rate Blood Pressure 118/56 L 123/65 123/63 Pulse Oximetry 100 100 100 01/04/18 05:00 01/04/18 05:15 01/04/18 05:30 Temperature Pulse Rate 93 H 93 H 95 H Respiratory Rate Blood Pressure 126/63 121/61 121/58 L Pulse Oximetry 99 100 100 01/04/18 05:32 01/04/18 05:45 01/04/18 06:00 Temperature Pulse Rate 99 H 97 H Respiratory Rate 20 Blood Pressure 123/67 121/64 Pulse Oximetry 100 100 01/04/18 06:15 Temperature Pulse Rate 97 H Respiratory Rate Blood Pressure 121/69 Pulse Oximetry 98 Intake & Output 01/03/18 01/04/18 01/04/18 18:59 06:59 18:59 Intake Total 1246 / 1246 971 / 971 Output Total 4251 / 4251 2250 / 2250 Balance -3005 / -3005 -1279 / -1279 Weight 84.8 kg Intake: IV 100 / 100 100 / 100 Primaxin Inj 500 MG In NS Inj 100 / 100 100 / 100 100 ML @ 200 mls/hr IV.SIG Q8H EDE Rx#:[id number] Keppra Inj 500 MG In NS Inj 100 0 / 0 ML @ 400 mls/hr IV.SIG Q12H EDE Rx#:[id number] Oral 0 / 0 0 / 0 Tube Feeding 437 / 437 631 / 631 Tube Irrigant 0 / 0 0 / 0 Water Bolus Amount 50 / 50 60 / 60 Other 218 / 218 180 / 180 Plasma Thawed 5 Day Acda Unit 218 / 218 [id number] Intake (Blood Product) Amt 441 / 441 Plasma Thawed 5 Day Acda Unit 228 / 228 [id number] Plasma Thawed 5 Day Acda Unit 213 / 213 [id number] Output: Urine 1300 / 1300 1300 / 1300 Emesis 1 / 1 Urine Amount (Catheter) 1750 / 1750 800 / 800 Indwelling Urethral Catheter 650 / 650 800 / 800 Straight 1100 / 1100 Chest Tube Drainage 1200 / 1200 150 / 150 Right Mid-Axillary Chest 1200 / 1200 150 / 150 Other: # Voids 2 2 # Incontinent Voids 4 4 Date of Last Bowel Movement 01/03/18 01/03/18 # Bowel Movements 1 1 # Incontinent Bowel Movements 0 0 Result Diagrams: 01/04/18 05:06 01/04/18 05:06 Objective Remarks: GENERAL: Patient is 77 yo encephalopathy on TP SKIN: Warm and dry. HEAD: Normocephalic. EYES: No scleral icterus. No injection or drainage. NECK: Supple, trachea midline. No JVD or lymphadenopathy. + trach CARDIOVASCULAR: Regular rate and rhythm without murmurs, gallops, or rubs. RESPIRATORY: Breath sounds equal bilaterally, diminished at bases. No accessory muscle use. Right pigtail chest tube in place with 1.35 L output since placement GASTROINTESTINAL: Abdomen soft, non-tender, nondistended. +PEG tube in place MUSCULOSKELETAL: No cyanosis, or edema. Neuro: Encephalopathic, opens eyes to painful stimuli. No spontaneous limb movement of extremities. Assessment and Plan - Assessment and Plan Plan: Assessment: Acute on chronic resp failure s/p trach/PEG Severe sepsis Encephalopathy Healthcare associated pneumonia Large bilateral pleural effusion UTI with ESBL E. coli CVA Anemia s/p NSTEMI Optic neuritis Plan Neuro Impression: Monitor neuro status, spoke to patient's daughter she would like 2nd opinion for neurology Reconsulted neurology and Dr. Pereira has seen patient with encephalopathy, seizures, L [place] infarct. Status post systemic TPA on November 09 Repeat MRI unchanged; EEG with diffuse encephalopathy on aspirin, Plavix, statin Neuro is following, on Ritalin, Keppra Coumadin on hold for invasive procedures. Currently on IV heparin Neuropsychology is following Optic neuritis. Status post treatment with IV hydrocortisone Encephalopathy persists CV: NSTEMI Echo 10/19: LV systolic function is moderately reduced, EF 40-45%. Cardiology following- Dr. Hernández Monitor HR and BP keep MAP>65mmHg Cardura 2mg daily and Coreg 3.125mg BID on hold On Lipitor 80mg qhs Continue aspirin Plavix statins IV Lasix 40 mg additional dose today 01/04/2018 Pulm: Continue with TP keep sat >92% Trach changed from cuffless to size 6 on 12/31 Bronchodilators, ICU vent bundle Pulm toilet, trach care Large bilateral effusions on CT chest. Right-sided pigtail chest tube placed 01/03/2018, 1.35 L output since placement Pleural fluid studies consistent with transudative effusion GI Continue tube feeds-Glucerna 1.5 with goal rate 60ml/hr On Pepcid 10mg BID : Monitor renal function, electrolytes replacement per protocol Cr: 1.5 today ID UTI with ESBL E. coli Healthcare associated pneumonia with Klebsiella and ESBL E. coli 12/31 Wound cx: ESBL E.coli - ESBL E. coli +blood cultures on 10/24. Completed course of antibiotics. Urine culture on December 10 with Pseudomonas, pansensitive. Cipro stopped 12/17 -ID signed off 12/08; reconsult ID-Dr. Mariza Estrada following Abx (Primaxin) Monitor for signs of infections ( Fever, WBC) Sputum and Urine cx as above Skin Scrotal Edema/ulcerations Has been evaluated by Urology: continue with clean intermittent catheter as needed, scrotal elevation Sacral wound -Seen by Plastic surgery; debridement declined per patient's family -Wound care is following- apply dressings per wound management recommendations Heme: Anemia GI bleed; Status post EGD colonoscopy. GI has signed off, patient with healed rectal ulcers and hemorrhoids. Monitor CBC, coags-Coumadin held for invasive procedures continue IV heparin Endo On SSI for glycemic control GI prophylaxis- on Pepcid DVT prophylaxis- On IV heparin Level 3 excluding procedures
[2018-01-04] MEDS: Chlorhexidine 0.12% Oral Kit 15 ML UDC SWISH-SPIT SCH ×2 (08:05→21:32)
--- NOTE | 2018-01-04 08:23 | XR ---
EXAM DATE: 01/04/2018 8:16 AM EDT AGE/SEX: 77 years / Male INDICATIONS: Respiratory distress. CLINICAL DATA: This is the patient's subsequent encounter. Patient reports that signs and symptoms h ave been present for 1 month and indicates a pain score of Nonresponsive. MEDICAL/SURGICAL HISTORY: . Cardiovascular disease. Diabetes. None. COMPARISON: [facility] [place], CHEST 1V SINGLE AP, 01/03/2018. . FINDINGS: Right-sided chest tube remains in place. Right basilar opacity characteristic of persistent fluid and airspace disease is still evident. There is no evidence of pneumothorax. Significant opacity remains evident throughout the left lung characteristic of a moderate pleural eff usion and underlying airspace disease. Tracheostomy tube remains in stable position. CONCLUSION: No significant change compared to prior day No evidence of pneumothorax. Persistent small right pleural effusion and moderate left pleural effusion And bilateral airspace disease again noted. Electronically signed by: Gagan Walker MD 01/04/2018 8:22 AM EDT
[2018-01-04] MEDS: Methylphenidate HCl 5 MG Tablet PO SCH ×2 (09:08→14:40)
[2018-01-04] MEDS: Famotidine 20 MG Tablet PO SCH ×2 (09:09→21:33)
[2018-01-04] MEDS: Polyethylene Glycol 3350 17 GM Packet PO SCH (09:13)
[2018-01-04] MEDS: Hydrocortisone Acetate 25 MG Supp RECTAL SCH ×2 (09:14→21:32)
--- NOTE | 2018-01-04 09:33 | P.PNID ---
Subjective Remarks: is a 77-year-old male of descent possibly from [place] with past medical history significant for hypertension and diabetes. Patient presented to the emergency department with complaints of 10 day history of blurry vision in his right eye with associated pain to the right christian. History of cataract surgery 6 weeks ago. His symptoms got progressively worse over the last 10 days so he decided to come in. He complains of blurry vision, tenderness to palpation of his right christian as well as pain in brushing his hair. Patient reports no jaw claudication normalities or unintentional weight loss. He went to [facility] and saw professor of medicine Dr. Zimmerman who sent him to the ED to rule out orbital pseudotumor or temporal arteritis. MRI of the orbits show edema involving the right optic nerve. An MRA of the brain showed severe diffuse atherosclerotic disease. Inflammatory markers were ESR of 12, CRP of 0.51. Patient receives Solu-Medrol to 50 mg IV in the emergency room. Patient reportedly was doing okay and observed in the ICU. Patient was seen by public health officer Dr. Diaz who is thinking of doing a temporal artery biopsy and thinks this possibly could be giant cell arteritis. And recommended continuing IV Solu-Medrol. Overnight on October 24, 2017 patient developed signs and symptoms suggestive of sepsis and a sepsis alert was called. The 19 hospitalists ordered sepsis workup including blood and urine cultures. The blood cultures are positive for ESBL E. coli and urine cultures are positive for gram-negative. Patient has been started on empiric Zosyn IV. Blood cultures have now been reported as ESBL based on Klaus gene testing. Clinically patient appears to be deteriorating on Zosyn IV as well making this more likely an ESBL E. coli infection. Infectious diseases initially followed for E. coli ESBL bacteremia and UTI. His hospital course was complicated by Vent dependence, Pneumonia and PSAE UTI. Patient had a fever on 12/15/2017 he had blood cultures done which are negative. Other workup negative so far. ID reconsult by for ESBL in Sacral cultures, GNR UTI and Fevers. Overnight events reviewed with RN. s/p thoracentesis yday with 900 cc fluid serous but yellow tinged fluid drained. No diarrhea No rash Opens eyes spontaneously but does not follow commands. Sacral decub with black eschar but no surrounding erythema noted. Antibiotics: Imipenem IV Lines: Lines ok Past Medical History: reviewed Allergies/Adverse Reactions: Allergies No Known Allergies Allergy (Verified 12/25/17 11:22) Objective Vital Signs 01/03/18 10:00 01/03/18 12:00 01/03/18 14:00 Temperature 98.9 F Pulse Rate 98 H 99 H 99 H Respiratory Rate 21 Blood Pressure 107/55 L Pulse Oximetry 98 01/03/18 16:00 01/03/18 16:03 01/03/18 16:27 Temperature 98.2 F 98.2 F 98.8 F Pulse Rate 98 H 97 H 94 H Respiratory Rate 23 24 26 H Blood Pressure 108/58 L 108/58 L 99/58 L Pulse Oximetry 100 100 100 01/03/18 17:08 01/03/18 18:00 01/03/18 18:15 Temperature 98.7 F Pulse Rate 95 H 91 H 89 Respiratory Rate 22 Blood Pressure 88/44 L Pulse Oximetry 97 100 01/03/18 18:30 01/03/18 18:45 01/03/18 19:00 Temperature Pulse Rate 86 87 86 Respiratory Rate Blood Pressure 98/55 L 98/54 L 101/59 L Pulse Oximetry 100 100 100 01/03/18 19:15 01/03/18 19:30 01/03/18 19:45 Temperature Pulse Rate 88 90 91 H Respiratory Rate Blood Pressure 115/65 115/68 118/69 Pulse Oximetry 100 100 100 01/03/18 20:00 01/03/18 20:04 01/03/18 20:15 Temperature 97.5 F L Pulse Rate 92 H 91 H 91 H Respiratory Rate 18 21 Blood Pressure 114/66 116/65 Pulse Oximetry 100 100 100 01/03/18 20:30 01/03/18 20:45 01/03/18 21:00 Temperature Pulse Rate 91 H 91 H 92 H Respiratory Rate Blood Pressure 114/63 113/65 112/58 L Pulse Oximetry 100 100 100 01/03/18 21:15 01/03/18 21:30 01/03/18 21:45 Temperature Pulse Rate 93 H 93 H 93 H Respiratory Rate Blood Pressure 118/62 119/66 114/64 Pulse Oximetry 100 100 100 01/03/18 22:00 01/03/18 22:15 01/03/18 22:30 Temperature Pulse Rate 93 H 97 H 95 H Respiratory Rate 21 Blood Pressure 116/66 120/70 120/70 Pulse Oximetry 100 100 100 01/03/18 22:45 01/03/18 23:00 01/03/18 23:15 Temperature Pulse Rate 94 H 95 H 93 H Respiratory Rate Blood Pressure 120/67 111/61 110/62 Pulse Oximetry 100 100 100 01/03/18 23:30 01/03/18 23:45 01/04/18 00:00 Temperature 97.8 F Pulse Rate 92 H 92 H 92 H Respiratory Rate Blood Pressure 110/60 113/61 112/61 Pulse Oximetry 100 100 100 01/04/18 00:15 01/04/18 00:30 01/04/18 00:45 Temperature Pulse Rate 92 H 92 H 91 H Respiratory Rate Blood Pressure 114/59 L 114/64 117/57 L Pulse Oximetry 100 100 100 01/04/18 01:00 01/04/18 01:15 01/04/18 01:30 Temperature Pulse Rate 96 H 93 H 94 H Respiratory Rate Blood Pressure 123/58 L 105/51 L 122/60 Pulse Oximetry 98 100 100 01/04/18 01:45 01/04/18 02:00 01/04/18 02:15 Temperature Pulse Rate 93 H 92 H 94 H Respiratory Rate Blood Pressure 115/59 L 112/59 L 108/58 L Pulse Oximetry 100 100 100 01/04/18 02:30 01/04/18 02:45 01/04/18 03:00 Temperature Pulse Rate 92 H 92 H 92 H Respiratory Rate Blood Pressure 112/56 L 108/58 L 111/56 L Pulse Oximetry 100 100 100 01/04/18 03:15 01/04/18 03:16 01/04/18 03:30 Temperature Pulse Rate 96 H 93 H Respiratory Rate Blood Pressure 117/62 114/60 Pulse Oximetry 100 100 100 01/04/18 03:45 01/04/18 04:00 01/04/18 04:15 Temperature 97.8 F Pulse Rate 93 H 93 H 93 H Respiratory Rate 20 Blood Pressure 120/63 119/61 118/56 L Pulse Oximetry 100 100 100 01/04/18 04:30 01/04/18 04:45 01/04/18 05:00 Temperature Pulse Rate 95 H 96 H 93 H Respiratory Rate Blood Pressure 123/65 123/63 126/63 Pulse Oximetry 100 100 99 01/04/18 05:15 01/04/18 05:30 01/04/18 05:32 Temperature Pulse Rate 93 H 95 H Respiratory Rate 20 Blood Pressure 121/61 121/58 L Pulse Oximetry 100 100 01/04/18 05:45 01/04/18 06:00 01/04/18 06:15 Temperature Pulse Rate 99 H 97 H 97 H Respiratory Rate Blood Pressure 123/67 121/64 121/69 Pulse Oximetry 100 100 98 01/04/18 07:43 Temperature Pulse Rate 96 H Respiratory Rate 28 H Blood Pressure Pulse Oximetry 98 Intake & Output 01/03/18 01/04/18 01/04/18 18:59 06:59 18:59 Intake Total 1246 / 1246 1071 / 1071 Output Total 4251 / 4251 2250 / 2250 Balance -3005 / -3005 -1179 / -1179 Weight 84.8 kg Intake: IV 100 / 100 200 / 200 Primaxin Inj 500 MG In NS Inj 100 / 100 100 / 100 100 ML @ 200 mls/hr IV.SIG Q8H EDE Rx#:[id number] Keppra Inj 500 MG In NS Inj 100 0 / 0 100 / 100 ML @ 400 mls/hr IV.SIG Q12H EDE Rx#:[id number] Oral 0 / 0 0 / 0 Tube Feeding 437 / 437 631 / 631 Tube Irrigant 0 / 0 0 / 0 Water Bolus Amount 50 / 50 60 / 60 Other 218 / 218 180 / 180 Plasma Thawed 5 Day Acda Unit 218 / 218 [id number] Intake (Blood Product) Amt 441 / 441 Plasma Thawed 5 Day Acda Unit 228 / 228 [id number] Plasma Thawed 5 Day Acda Unit 213 / 213 [id number] Output: Urine 1300 / 1300 1300 / 1300 Emesis 1 / 1 Urine Amount (Catheter) 1750 / 1750 800 / 800 Indwelling Urethral Catheter 650 / 650 800 / 800 Straight 1100 / 1100 Chest Tube Drainage 1200 / 1200 150 / 150 Right Mid-Axillary Chest 1200 / 1200 150 / 150 Other: # Voids 2 2 # Incontinent Voids 4 4 Date of Last Bowel Movement 01/03/18 01/03/18 # Bowel Movements 1 1 # Incontinent Bowel Movements 0 0 01/03/18 17:00 Fluid - Pleural fluid Gram Stain - Final 01/03/18 17:00 Fluid - Pleural fluid Body Fluid Culture - Pending 01/03/18 17:00 Fluid - Pleural fluid Fungal Smear - Final No fungal elements seen 01/03/18 17:00 Fluid - Pleural fluid Fungal Culture - Pending 01/03/18 17:00 Fluid - Pleural fluid Acid Fast Bacilli Smear - Pending 01/03/18 17:00 Fluid - Pleural fluid Mycobacterial Culture - Pending 01/01/18 16:31 Sputum - Endotracheal Gram Stain - Final 01/01/18 16:31 Sputum - Endotracheal Sputum Culture - Final Klebsiella pneumoniae Escherichia coli ESBL positive 01/02/18 18:34 Blood - Peripheral Aerobic Blood Culture - Preliminary No growth in 1 day 01/02/18 18:34 Blood - Peripheral Anaerobic Blood Culture - Preliminary No growth in 1 day 01/02/18 18:20 Blood - Peripheral Aerobic Blood Culture - Preliminary No growth in 1 day 01/02/18 18:20 Blood - Peripheral Anaerobic Blood Culture - Preliminary No growth in 1 day 12/31/17 22:58 Catheterized Urine Urine Culture - Final Escherichia coli ESBL positive 12/30/17 17:00 Fluid - Other Gram Stain - Final 12/30/17 17:00 Fluid - Other Body Fluid Culture - Final Escherichia coli ESBL positive Lab - Hematology Results 01/02/18 01/03/18 01/04/18 05:21 05:20 05:06 WBC 12.2 H 12.7 H RBC 2.78 L 2.83 L Hgb 8.1 L 8.4 L Hct 25.0 L 25.6 L MCV 89.9 90.2 MCH 29.0 29.5 MCHC 32.3 32.7 RDW 21.8 H 21.5 H Plt Count 511 H 534 H MPV 8.2 8.0 Neut % (Auto) 52.4 Lymph % (Auto) 36.3 [place] % (Auto) 9.9 H Eos % (Auto) 1.1 Baso % (Auto) 0.3 Neut # (Auto) 6.4 Lymph # (Auto) 4.4 [place] # (Auto) 1.2 H Eos # (Auto) 0.1 Baso # (Auto) 0.0 WBC Differential . Differential Comment Auto diff final ESR Greater than 140 H Lab - Chemistry Results 01/02/18 01/02/18 01/02/18 05:21 12:55 17:34 Sodium Potassium Chloride Carbon Dioxide Anion Gap BUN Creatinine Estimated GFR POC Glucose 175 H 201 H Random Glucose Calcium Total Bilirubin AST ALT Alkaline Phosphatase C-Reactive Protein 13.80 H Total Protein Albumin 01/03/18 01/03/18 01/03/18 00:59 05:49 06:00 Sodium 140 Potassium 4.4 Chloride 104 Carbon Dioxide 25.7 Anion Gap 10 BUN 44 H Creatinine 1.57 H Estimated GFR 43 L POC Glucose 199 H 222 H Random Glucose 194 H Calcium 7.7 L Total Bilirubin 0.3 AST 39 H ALT 41 Alkaline Phosphatase 145 H C-Reactive Protein Total Protein 6.7 Albumin 1.2 L 01/03/18 01/03/18 01/03/18 12:06 18:23 23:18 Sodium Potassium Chloride Carbon Dioxide Anion Gap BUN Creatinine Estimated GFR POC Glucose 238 H 236 H 229 H Random Glucose Calcium Total Bilirubin AST ALT Alkaline Phosphatase C-Reactive Protein Total Protein Albumin 01/04/18 01/04/18 05:06 05:25 Sodium 142 Potassium 4.3 Chloride 104 Carbon Dioxide 27.4 Anion Gap 11 BUN 46 H Creatinine 1.55 H Estimated GFR 44 L POC Glucose 243 H Random Glucose 199 H Calcium 8.5 D Total Bilirubin 0.3 AST 32 ALT 35 Alkaline Phosphatase 144 H C-Reactive Protein Total Protein 7.4 D Albumin 1.6 L Imaging: ITS Impressions Head MRI 01/02/18 00:00 CONCLUSION: 1. 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 2. Cerebral atrophy and chronic ischemic small vessel vasculopathy. Chest CT 01/03/18 00:00 CONCLUSION: 1. Large bilateral pleural effusions occupying more than half of the right and left hemithorax. Chest X-Ray 01/04/18 07:41 CONCLUSION: No significant change compared to prior day No evidence of pneumothorax. Persistent small right pleural effusion and moderate left pleural effusion And bilateral airspace disease again noted. Physical Exam: GENERAL: Patient is 77 yo on ventilator SKIN: Warm and dry. HEAD: Normocephalic. EYES: No scleral icterus. No injection or drainage. NECK: Supple, trachea midline. + trach CARDIOVASCULAR: HS audible. RESPIRATORY: Breath sounds equal bilaterally. No accessory muscle use. GASTROINTESTINAL: Abdomen soft, non-tender, nondistended. +PEG tube in place MUSCULOSKELETAL: No cyanosis, or edema. Neuro: Opens eyes spontaneously, does not track, follows simple commands Sacral decub area with black eschar noted but no surrounding erythema. IV line sites with no e.o infection. Assessment and Plan - Plan Sacral decub with possible underlying infection, osteomyelitis. Prior h/o ESBL E.coli on 10/24/2017. Possible HCAP GNR UTI ? ESBL given h/o ESBL. 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 Encephalopathy: strokes in hospital, optic neuritis on presentation. Recs: Continue Imipenem IV Follow thoracentesis cultures Follow clinically. Sacral decub has eschar with possible underlying osteomyelitis. Patient family refused surgical debridement. Trav Silva plan for left side thoracentesis today.
[2018-01-04] MEDS: Collagenase Oint 30 GM Tube TOPICAL SCH (11:14)
--- NOTE | 2018-01-04 14:01 | P.PCN ---
Date of procedure: 01/04/18 Pre-op diagnosis: Large left pleural effusion, repiratory failure Post-op diagnosis: same Procedure: PROCEDURE: Left pigtail chest tube placement, US guided INDICATION: Acute on chronic hypoxemic respiratory failure, large right pleural effusion CONSENT: Consent was obtained from daughter prior to the procedure. Indications , risks, and benefits were explained. PROCEDURE SUMMARY: Chest x-ray, reviewed, the appropriate side was confirmed. Hands were washed immediately prior to the procedure and I wore a surgical cap, mask with protective eyewear, sterile gown and sterile gloves throughout the procedure. The patient was prepped and draped in a sterile manner using chlorhexidine scrub after the appropriate level was confirmed and marked by ultrasound. 1% lidocaine was used to anesthetize the skin, subcutaneous tissue, superior aspect of the rib periosteum and parietal pleura. A small skin incision was made at the marked site and introducer needle was placed over the superior aspect of the rib and advanced until pleural fluid was aspirated. A guide wire was placed and needle was removed, and after dilatation of track, 8F pigtail catheter was placed using Seldinger technique. Pigtail was connected to -20 wall suction, and initial output was 500 ml of slightly yellow tinged, free flowing pleural fluid. A post-procedure chest x-ray is pending at the time of this note. Estimated blood loss is < 1 ml. Anesthesia: local Estimated blood loss (mL): 1 Condition: stable Disposition: ICU
--- NOTE | 2018-01-04 14:08 | XR ---
EXAM DATE: 01/04/2018 2:01 PM EDT AGE/SEX: 77 years / Male INDICATIONS: Bilateral chest tube placement. CLINICAL DATA: This is the patient's subsequent encounter. Patient reports that signs and symptoms h ave been present for 1 day and indicates a pain score of Nonresponsive. MEDICAL/SURGICAL HISTORY: . Cardiovascular disease. Diabetes None. COMPARISON: [facility] [place], CHEST 1V SINGLE AP, 01/04/2018. . FINDINGS: A single AP view of the chest demonstrates persistent right cochlear thoracostomy tube small right-si ded effusion. Interval placement of a left-sided cochlear thoracostomy tube with marked improvement i n the previously seen left-sided effusion. No pneumothorax. Heart size is borderline prominent but we ll compensated. Stable position of tracheostomy tube. CONCLUSION: 1. Right-sided thoracostomy tube is again seen. Small right-sided effusion/basilar atelectasis. 2. Interval placement of a left-sided cochlear thoracostomy tube with marked improvement in previous ly seen left-sided effusion. Minimal left basilar atelectasis. 3. No pneumothorax. Stable position of tracheostomy tube. Electronically signed by: Randall Knowles MD 01/04/2018 2:06 PM EDT
--- NOTE | 2018-01-04 16:58 | P.PN ---
Subjective Interval history: alert no sob trach ok no bleeding Physical Exam Vital signs: Vital Signs 01/03/18 17:08 01/03/18 18:00 01/03/18 18:15 Temperature 98.7 F Pulse Rate 95 H 91 H 89 Respiratory Rate 22 Blood Pressure 88/44 L Pulse Oximetry 97 100 01/03/18 18:30 01/03/18 18:45 01/03/18 19:00 Temperature Pulse Rate 86 87 86 Respiratory Rate Blood Pressure 98/55 L 98/54 L 101/59 L Pulse Oximetry 100 100 100 01/03/18 19:15 01/03/18 19:30 01/03/18 19:45 Temperature Pulse Rate 88 90 91 H Respiratory Rate Blood Pressure 115/65 115/68 118/69 Pulse Oximetry 100 100 100 01/03/18 20:00 01/03/18 20:04 01/03/18 20:15 Temperature 97.5 F L Pulse Rate 92 H 91 H 91 H Respiratory Rate 18 21 Blood Pressure 114/66 116/65 Pulse Oximetry 100 100 100 01/03/18 20:30 01/03/18 20:45 01/03/18 21:00 Temperature Pulse Rate 91 H 91 H 92 H Respiratory Rate Blood Pressure 114/63 113/65 112/58 L Pulse Oximetry 100 100 100 01/03/18 21:15 01/03/18 21:30 01/03/18 21:45 Temperature Pulse Rate 93 H 93 H 93 H Respiratory Rate Blood Pressure 118/62 119/66 114/64 Pulse Oximetry 100 100 100 01/03/18 22:00 01/03/18 22:15 01/03/18 22:30 Temperature Pulse Rate 93 H 97 H 95 H Respiratory Rate 21 Blood Pressure 116/66 120/70 120/70 Pulse Oximetry 100 100 100 01/03/18 22:45 01/03/18 23:00 01/03/18 23:15 Temperature Pulse Rate 94 H 95 H 93 H Respiratory Rate Blood Pressure 120/67 111/61 110/62 Pulse Oximetry 100 100 100 01/03/18 23:30 01/03/18 23:45 01/04/18 00:00 Temperature 97.8 F Pulse Rate 92 H 92 H 92 H Respiratory Rate Blood Pressure 110/60 113/61 112/61 Pulse Oximetry 100 100 100 01/04/18 00:15 01/04/18 00:30 01/04/18 00:45 Temperature Pulse Rate 92 H 92 H 91 H Respiratory Rate Blood Pressure 114/59 L 114/64 117/57 L Pulse Oximetry 100 100 100 01/04/18 01:00 01/04/18 01:15 01/04/18 01:30 Temperature Pulse Rate 96 H 93 H 94 H Respiratory Rate Blood Pressure 123/58 L 105/51 L 122/60 Pulse Oximetry 98 100 100 01/04/18 01:45 01/04/18 02:00 01/04/18 02:15 Temperature Pulse Rate 93 H 92 H 94 H Respiratory Rate Blood Pressure 115/59 L 112/59 L 108/58 L Pulse Oximetry 100 100 100 01/04/18 02:30 01/04/18 02:45 01/04/18 03:00 Temperature Pulse Rate 92 H 92 H 92 H Respiratory Rate Blood Pressure 112/56 L 108/58 L 111/56 L Pulse Oximetry 100 100 100 01/04/18 03:15 01/04/18 03:16 01/04/18 03:30 Temperature Pulse Rate 96 H 93 H Respiratory Rate Blood Pressure 117/62 114/60 Pulse Oximetry 100 100 100 01/04/18 03:45 01/04/18 04:00 01/04/18 04:15 Temperature 97.8 F Pulse Rate 93 H 93 H 93 H Respiratory Rate 20 Blood Pressure 120/63 119/61 118/56 L Pulse Oximetry 100 100 100 01/04/18 04:30 01/04/18 04:45 01/04/18 05:00 Temperature Pulse Rate 95 H 96 H 93 H Respiratory Rate Blood Pressure 123/65 123/63 126/63 Pulse Oximetry 100 100 99 01/04/18 05:15 01/04/18 05:30 01/04/18 05:32 Temperature Pulse Rate 93 H 95 H Respiratory Rate 20 Blood Pressure 121/61 121/58 L Pulse Oximetry 100 100 01/04/18 05:45 01/04/18 06:00 01/04/18 06:15 Temperature Pulse Rate 99 H 97 H 97 H Respiratory Rate Blood Pressure 123/67 121/64 121/69 Pulse Oximetry 100 100 98 01/04/18 07:43 Temperature Pulse Rate 96 H Respiratory Rate 28 H Blood Pressure Pulse Oximetry 98 Intake & Output 01/03/18 01/04/18 01/04/18 18:59 06:59 18:59 Intake Total 1246 / 1246 1171 / 1171 100 / 100 Output Total 4251 / 4251 2250 / 2250 Balance -3005 / -3005 -1079 / -1079 100 / 100 Weight 84.8 kg Intake: IV 100 / 100 300 / 300 100 / 100 Primaxin Inj 500 MG In NS Inj 100 / 100 200 / 200 100 / 100 100 ML @ 200 mls/hr IV.SIG Q8H EDE Rx#:[id number] Keppra Inj 500 MG In NS Inj 100 0 / 0 100 / 100 ML @ 400 mls/hr IV.SIG Q12H EDE Rx#:[id number] Oral 0 / 0 0 / 0 Tube Feeding 437 / 437 631 / 631 Tube Irrigant 0 / 0 0 / 0 Water Bolus Amount 50 / 50 60 / 60 Other 218 / 218 180 / 180 Plasma Thawed 5 Day Acda Unit 218 / 218 [id number] Intake (Blood Product) Amt 441 / 441 Plasma Thawed 5 Day Acda Unit 228 / 228 [id number] Plasma Thawed 5 Day Acda Unit 213 / 213 [id number] Output: Urine 1300 / 1300 1300 / 1300 Emesis 1 / 1 Urine Amount (Catheter) 1750 / 1750 800 / 800 Indwelling Urethral Catheter 650 / 650 800 / 800 Straight 1100 / 1100 Chest Tube Drainage 1200 / 1200 150 / 150 Right Mid-Axillary Chest 1200 / 1200 150 / 150 Other: # Voids 2 2 # Incontinent Voids 4 4 Date of Last Bowel Movement 01/03/18 01/03/18 # Bowel Movements 1 1 # Incontinent Bowel Movements 0 0 Narrative: GENERAL: respiratory distress SKIN: Sacral/scrotal wounds not inspected today CARDIOVASCULAR: Tachycardic; regular rhythm without murmurs; normal peripheral perfusion RESPIRATORY: ON THE VENT, DECREASE BREATH SOUNDS AT BASIS GASTROINTESTINAL: Abdomen soft, non-tender, nondistended MUSCULOSKELETAL: No lower extremity edema appreciated Neuro: Noninteractive. Pupils symmetric. Patient nonresponsive/ does not follow- commands - Urinary Catheter Management Straight Cath placed during this visit: yes Reason for continuing: Not indwelling catheter Insertion date: 01/01/18 Insertion time: 16:00 Indwelling Urethral Catheter Cath placed during this visit: yes Reason for continuing: Acute urinary retention Insertion date: 07/07/18 Insertion time: 16:30 Results - Labs CBC & Chem 7: 01/04/18 05:06 01/04/18 05:06 Laboratory Results - last 24 hr 01/03/18 01/03/18 01/03/18 12:43 17:00 17:00 WBC RBC Hgb Hct MCV MCH MCHC RDW Plt Count MPV PT INR APTT Sodium Potassium Chloride Carbon Dioxide Anion Gap BUN Creatinine Estimated GFR POC Glucose Random Glucose Calcium Total Bilirubin AST ALT Alkaline Phosphatase Total Protein Albumin Pleural pH 8.5 Pleural RBC 62 H Pleural Nuc Cells 124 H Pleural Neutrophils 3 Pleural Lymphocytes 85 Pleural Monocytes 8 Pleural Eosinophils 3 Pleural Mesothelial 1 Pleural Total Protein 2.1 Pleural LDH 85 Pleural Glucose 206 Pleural Amylase 24 Blood Bank Comment 01/03/18 01/03/18 01/03/18 18:23 20:51 20:51 WBC RBC Hgb Hct MCV MCH MCHC RDW Plt Count MPV PT 17.0 H INR 1.7 APTT 33.8 H Sodium Potassium Chloride Carbon Dioxide Anion Gap BUN Creatinine Estimated GFR POC Glucose 236 H Random Glucose Calcium Total Bilirubin AST ALT Alkaline Phosphatase Total Protein Albumin Pleural pH Pleural RBC Pleural Nuc Cells Pleural Neutrophils Pleural Lymphocytes Pleural Monocytes Pleural Eosinophils Pleural Mesothelial Pleural Total Protein Pleural LDH Pleural Glucose Pleural Amylase Blood Bank Comment 01/03/18 01/04/18 01/04/18 23:18 05:06 05:06 WBC 12.7 H RBC 2.83 L Hgb 8.4 L Hct 25.6 L MCV 90.2 MCH 29.5 MCHC 32.7 RDW 21.5 H Plt Count 534 H MPV 8.0 PT INR APTT Sodium 142 Potassium 4.3 Chloride 104 Carbon Dioxide 27.4 Anion Gap 11 BUN 46 H Creatinine 1.55 H Estimated GFR 44 L POC Glucose 229 H Random Glucose 199 H Calcium 8.5 D Total Bilirubin 0.3 AST 32 ALT 35 Alkaline Phosphatase 144 H Total Protein 7.4 D Albumin 1.6 L Pleural pH Pleural RBC Pleural Nuc Cells Pleural Neutrophils Pleural Lymphocytes Pleural Monocytes Pleural Eosinophils Pleural Mesothelial Pleural Total Protein Pleural LDH Pleural Glucose Pleural Amylase Blood Bank Comment 01/04/18 01/04/18 01/04/18 05:06 05:25 12:00 WBC RBC Hgb Hct MCV MCH MCHC RDW Plt Count MPV PT 16.7 H INR 1.7 APTT 42.6 H D 33.8 H D Sodium Potassium Chloride Carbon Dioxide Anion Gap BUN Creatinine Estimated GFR POC Glucose 243 H Random Glucose Calcium Total Bilirubin AST ALT Alkaline Phosphatase Total Protein Albumin Pleural pH Pleural RBC Pleural Nuc Cells Pleural Neutrophils Pleural Lymphocytes Pleural Monocytes Pleural Eosinophils Pleural Mesothelial Pleural Total Protein Pleural LDH Pleural Glucose Pleural Amylase Blood Bank Comment 01/04/18 14:01 WBC RBC Hgb Hct MCV MCH MCHC RDW Plt Count MPV PT INR APTT Sodium Potassium Chloride Carbon Dioxide Anion Gap BUN Creatinine Estimated GFR POC Glucose 234 H Random Glucose Calcium Total Bilirubin AST ALT Alkaline Phosphatase Total Protein Albumin Pleural pH Pleural RBC Pleural Nuc Cells Pleural Neutrophils Pleural Lymphocytes Pleural Monocytes Pleural Eosinophils Pleural Mesothelial Pleural Total Protein Pleural LDH Pleural Glucose Pleural Amylase Blood Bank Comment Microbiology 01/03/18 17:00 Fluid - Pleural fluid Gram Stain - Final 01/03/18 17:00 Fluid - Pleural fluid Body Fluid Culture - Preliminary No growth in 24 hours 01/02/18 18:34 Blood - Peripheral Aerobic Blood Culture - Preliminary No growth in 2 days 01/02/18 18:34 Blood - Peripheral Anaerobic Blood Culture - Preliminary No growth in 2 days 01/02/18 18:20 Blood - Peripheral Aerobic Blood Culture - Preliminary No growth in 2 days 01/02/18 18:20 Blood - Peripheral Anaerobic Blood Culture - Preliminary No growth in 2 days 01/03/18 17:00 Fluid - Pleural fluid Fungal Smear - Final No fungal elements seen 01/01/18 16:31 Sputum - Endotracheal Gram Stain - Final 01/01/18 16:31 Sputum - Endotracheal Sputum Culture - Final Klebsiella pneumoniae Escherichia coli ESBL positive - Imaging Impressions Chest X-Ray 01/03/18 17:11 CONCLUSION: Small caliber chest tube right base with decreasing right-sided effusion. There is no evidence of pneumothorax. Chest X-Ray 01/04/18 07:41 CONCLUSION: No significant change compared to prior day No evidence of pneumothorax. Persistent small right pleural effusion and moderate left pleural effusion And bilateral airspace disease again noted. Chest X-Ray 01/04/18 13:34 CONCLUSION: 1. Right-sided thoracostomy tube is again seen. Small right-sided effusion/ basilar atelectasis. 2. Interval placement of a left-sided cochlear thoracostomy tube with marked improvement in previously seen left-sided effusion. Minimal left basilar atelectasis. 3. No pneumothorax. Stable position of tracheostomy tube. Assessment and Plan - Plan RESPIRATORY FAILURE cva cad respiratory failure post trach bilateral effusions bilateral chest tubes in place plan o2 as needed PULM TOILET OUTLOOK POOR
[2018-01-05] MEDS: Insulin NovoLIN Regular Correctional Sugar Inj SQ SCH ×3 (00:07→17:38)
--- NOTE | 2018-01-05 05:32 | XR ---
EXAM DATE: 01/05/2018 5:07 AM EDT AGE/SEX: 77 years / Male INDICATIONS: Shortness of breath. CLINICAL DATA: This is the patient's subsequent encounter. Patient reports that signs and symptoms h ave been present for 3 days and indicates a pain score of Nonresponsive. MEDICAL/SURGICAL HISTORY: . Cardiovascular disease. Diabetes. None. COMPARISON: [facility] [place], CHEST 1V SINGLE AP, 01/04/2018. . FINDINGS: Stable tracheostomy. Stable bilateral chest tubes with residual mild bilateral lower lung zone pleura l-parenchymal opacities. Cardiomegaly saw contours are stable. Remainder of the exam is unchanged. CONCLUSION: 1. No significant interval change. 2. Stable bilateral chest tubes with mild residual lower lung zone pleural-parenchymal opacities. Electronically signed by: Coleman Alfaro MD 01/05/2018 5:31 AM EDT
[2018-01-05 07:41] LABS: Hematocrit 25.6 % (39.0-51.0); Hemoglobin 8.2 gm/dL (13.0-17.0); Mean Corpuscular HGB Conc 32.1 % (32.0-36.0); Mean Corpuscular Hemoglobin 29.1 pg (27.0-34.0); Mean Corpuscular Volume 90.6 fL (80.0-100.0); Mean Platelet Volume 8.2 fL (7.0-11.0); Platelet Count 467 th/mm3 (150-450); Red Blood Count 2.83 mil/mm3 (4.50-5.90); Red Cell Distribution Width 20.6 % (11.6-17.2); White Blood Count 11.3 th/mm3 (4.0-11.0)
[2018-01-05 07:48] LABS: INR 1.5 Ratio; Prothrombin Time 15.5 sec (9.8-11.6)
[2018-01-05 08:12] LABS: Alanine Aminotransferase 29 U/L (12-78); Albumin 1.4 g/dL (3.4-5.0); Anion Gap 7 meq/L (5-15); Aspartate Aminotransferase 29 U/L (15-37); Blood Urea Nitrogen 47 mg/dL (7-18); Carbon Dioxide 29.5 meq/L (21.0-32.0); Chloride 109 meq/L (98-107); Glomerular Filtration Rate 47 mL/min (>89); Glucose,Random 191 mg/dL (74-106); Potassium 4.2 meq/L (3.5-5.1); Sodium 145 meq/L (136-145)
[2018-01-05 08:17] LABS: Alkaline Phosphatase 123 U/L (45-117); Total Protein 6.5 g/dL (6.4-8.2)
[2018-01-05] MEDS: Hydrocortisone Acetate 25 MG Supp RECTAL SCH (09:23)
[2018-01-05] MEDS: Famotidine 20 MG Tablet PO SCH ×2 (09:23→20:57)
[2018-01-05] MEDS: Collagenase Oint 30 GM Tube TOPICAL SCH (09:25)
[2018-01-05] MEDS: Polyethylene Glycol 3350 17 GM Packet PO SCH (09:26)
[2018-01-05] MEDS: Methylphenidate HCl 5 MG Tablet PO SCH ×2 (09:29→12:41)
[2018-01-05] MEDS: Chlorhexidine 0.12% Oral Kit 15 ML UDC SWISH-SPIT SCH ×2 (09:30→20:56)
[2018-01-05] MEDS: Heparin Drip 25,000 UNIT/250 ML BAG IV.CONT PRN (10:36)
--- NOTE | 2018-01-05 16:27 | P.PN ---
Subjective Interval history: eyes opened to call of name not interactive tolerating tube feedings Physical Exam Vital signs: Vital Signs 01/04/18 16:30 01/04/18 16:45 01/04/18 17:00 Temperature Pulse Rate 96 H 97 H 97 H Respiratory Rate Blood Pressure 109/60 109/57 L 106/59 L Pulse Oximetry 100 99 99 01/04/18 17:15 01/04/18 17:30 01/04/18 17:45 Temperature Pulse Rate 101 H 99 H 99 H Respiratory Rate Blood Pressure 109/64 107/58 L 108/56 L Pulse Oximetry 100 99 100 01/04/18 18:00 01/04/18 18:15 01/04/18 18:30 Temperature Pulse Rate 98 H 99 H 98 H Respiratory Rate Blood Pressure 110/58 L 103/53 L 102/53 L Pulse Oximetry 100 100 100 01/04/18 18:45 01/04/18 19:00 01/04/18 19:15 Temperature Pulse Rate 102 H 98 H 97 H Respiratory Rate Blood Pressure 107/67 99/54 L 94/52 L Pulse Oximetry 100 100 100 01/04/18 19:30 01/04/18 19:45 01/04/18 20:00 Temperature 97.8 F Pulse Rate 96 H 97 H 98 H Respiratory Rate 20 Blood Pressure 92/54 L 96/51 L 103/53 L Pulse Oximetry 98 100 100 01/04/18 20:15 01/04/18 20:30 01/04/18 20:45 Temperature Pulse Rate 96 H 96 H 99 H Respiratory Rate Blood Pressure 88/52 L 91/55 L 97/54 L Pulse Oximetry 100 99 100 01/04/18 21:00 01/04/18 21:15 01/04/18 21:30 Temperature Pulse Rate 99 H 99 H 97 H Respiratory Rate 20 Blood Pressure 100/53 L 92/51 L 93/51 L Pulse Oximetry 100 100 100 01/04/18 21:45 01/04/18 22:00 01/04/18 22:15 Temperature Pulse Rate 95 H 100 H 100 H Respiratory Rate Blood Pressure 91/55 L 98/56 L 92/51 L Pulse Oximetry 100 100 100 01/04/18 22:30 01/04/18 22:45 01/04/18 23:00 Temperature Pulse Rate 100 H 99 H 98 H Respiratory Rate Blood Pressure 99/56 L 89/53 L 91/55 L Pulse Oximetry 100 100 100 01/04/18 23:15 01/04/18 23:30 01/04/18 23:45 Temperature Pulse Rate 96 H 98 H 97 H Respiratory Rate Blood Pressure 93/51 L 100/54 L 99/50 L Pulse Oximetry 100 100 100 01/05/18 00:00 01/05/18 00:15 01/05/18 00:30 Temperature Pulse Rate 97 H 100 H 97 H Respiratory Rate Blood Pressure 95/50 L 88/50 L 101/51 L Pulse Oximetry 100 100 100 01/05/18 00:45 01/05/18 01:00 01/05/18 01:15 Temperature Pulse Rate 97 H 97 H 100 H Respiratory Rate Blood Pressure 95/53 L 98/53 L 88/52 L Pulse Oximetry 100 100 100 01/05/18 01:30 01/05/18 01:45 01/05/18 02:00 Temperature Pulse Rate 98 H 101 H 100 H Respiratory Rate Blood Pressure 86/48 L 100/57 L 92/55 L Pulse Oximetry 100 100 100 01/05/18 02:15 01/05/18 02:30 01/05/18 02:45 Temperature Pulse Rate 101 H 100 H 96 H Respiratory Rate Blood Pressure 88/51 L 100/57 L 97/52 L Pulse Oximetry 100 100 100 01/05/18 03:00 01/05/18 03:15 01/05/18 03:30 Temperature Pulse Rate 100 H 100 H 100 H Respiratory Rate Blood Pressure 93/52 L 90/51 L 89/50 L Pulse Oximetry 100 100 100 01/05/18 03:45 01/05/18 04:00 01/05/18 04:15 Temperature Pulse Rate 100 H 101 H 97 H Respiratory Rate Blood Pressure 95/53 L 101/58 L 95/50 L Pulse Oximetry 100 100 100 01/05/18 04:30 01/05/18 04:45 01/05/18 05:00 Temperature Pulse Rate 98 H 99 H 99 H Respiratory Rate Blood Pressure 90/52 L 93/54 L 91/52 L Pulse Oximetry 100 100 100 01/05/18 05:15 01/05/18 05:30 01/05/18 05:45 Temperature Pulse Rate 99 H 100 H 102 H Respiratory Rate Blood Pressure 89/54 L 92/50 L 94/55 L Pulse Oximetry 100 100 100 01/05/18 06:00 01/05/18 06:15 01/05/18 06:30 Temperature Pulse Rate 76 100 H 102 H Respiratory Rate Blood Pressure 99/52 L 88/53 L 94/53 L Pulse Oximetry 99 98 100 01/05/18 06:45 01/05/18 07:00 01/05/18 07:15 Temperature Pulse Rate 103 H 104 H 106 H Respiratory Rate Blood Pressure 98/55 L 105/56 L 101/56 L Pulse Oximetry 100 100 100 01/05/18 07:30 01/05/18 07:45 01/05/18 08:00 Temperature Pulse Rate 102 H 104 H 106 H Respiratory Rate 18 Blood Pressure 93/50 L 108/57 L 96/54 L Pulse Oximetry 100 99 100 01/05/18 08:15 01/05/18 08:30 01/05/18 08:45 Temperature Pulse Rate 106 H 106 H 108 H Respiratory Rate Blood Pressure 103/57 L 100/55 L 106/56 L Pulse Oximetry 100 100 100 01/05/18 09:00 01/05/18 09:15 01/05/18 09:30 Temperature Pulse Rate 106 H 106 H 109 H Respiratory Rate Blood Pressure 98/55 L 101/57 L 107/62 Pulse Oximetry 100 100 100 01/05/18 09:45 01/05/18 10:00 01/05/18 10:15 Temperature Pulse Rate 107 H 105 H 104 H Respiratory Rate Blood Pressure 93/52 L 100/56 L 105/55 L Pulse Oximetry 100 99 100 Intake & Output 01/04/18 01/05/18 01/05/18 18:59 06:59 18:59 Intake Total 1029 / 1029 1544 / 1544 Output Total 3300 / 3300 1000 / 1000 Balance -2271 / -2271 544 / 544 Weight 83 kg Intake: IV 205 / 205 555 / 555 Heparin/D5W 25,000 U/250 mL 25, 250 / 250 000 unit In 250 ml @ 1,000 UNITS/HR 10 mls/hr IV.CONT TITRATE PRN Rx#:[id number] Primaxin Inj 500 MG In NS Inj 100 / 100 200 / 200 100 ML @ 200 mls/hr IV.SIG Q8H EDE Rx#:[id number] Keppra Inj 500 MG In NS Inj 100 105 / 105 105 / 105 ML @ 400 mls/hr IV.SIG Q12H EDE Rx#:[id number] Oral 0 / 0 Tube Feeding 704 / 704 746 / 746 Tube Irrigant 120 / 120 Water Bolus Amount 120 / 120 Other 123 / 123 Output: Urine Amount (Catheter) 1400 / 1400 900 / 900 Indwelling Urethral Catheter 1400 / 1400 900 / 900 Chest Tube Drainage 1900 / 1900 100 / 100 Left 1700 / 1700 50 / 50 Right Mid-Axillary Chest 200 / 200 50 / 50 Other: Date of Last Bowel Movement 01/03/18 01/03/18 # Bowel Movements 1 # Incontinent Bowel Movements 0 Narrative: encephalopathic, eyes opened to call of name, not interactive HEAD: Normocephalic. EYES: No scleral icterus. No injection or drainage. NECK: Supple, trachea midline. No JVD or lymphadenopathy. + trach CARDIOVASCULAR: Regular rate and rhythm without murmurs, gallops, or rubs. RESPIRATORY: Breath sounds equal bilaterally, diminished at bases. No accessory muscle use. Right pigtail chest tube in place Left pigtail catheter in place GASTROINTESTINAL: Abdomen soft, non-tender, nondistended. +PEG tube in place garcia in place MUSCULOSKELETAL: No cyanosis, or edema. some superficail wounds Neuro: opens eyes to painful stimuli. - Urinary Catheter Management Straight Cath placed during this visit: yes Urethral indwelling: Yes Insertion date: 01/01/18 Insertion time: 16:00 Indwelling Urethral Catheter Cath placed during this visit: yes Reason for continuing: Acute urinary retention Insertion date: 01/01/18 Insertion time: 16:30 Results - Labs CBC & Chem 7: 01/05/18 06:59 01/05/18 06:59 Laboratory Results - last 24 hr 01/04/18 01/04/18 01/05/18 18:33 23:28 02:22 WBC RBC Hgb Hct MCV MCH MCHC RDW Plt Count MPV PT INR APTT 47.0 H D Sodium Potassium Chloride Carbon Dioxide Anion Gap BUN Creatinine Estimated GFR POC Glucose 242 H 200 H Random Glucose Calcium Total Bilirubin AST ALT Alkaline Phosphatase Total Protein Albumin 01/05/18 01/05/18 01/05/18 05:58 06:59 06:59 WBC 11.3 H RBC 2.83 L Hgb 8.2 L Hct 25.6 L MCV 90.6 MCH 29.1 MCHC 32.1 RDW 20.6 H Plt Count 467 H MPV 8.2 PT INR APTT Sodium 145 Potassium 4.2 Chloride 109 H Carbon Dioxide 29.5 Anion Gap 7 BUN 47 H Creatinine 1.46 H Estimated GFR 47 L POC Glucose 195 H Random Glucose 191 H Calcium 8.0 L Total Bilirubin 0.3 AST 29 ALT 29 Alkaline Phosphatase 123 H Total Protein 6.5 D Albumin 1.4 L 01/05/18 01/05/18 01/05/18 06:59 09:33 12:38 WBC RBC Hgb Hct MCV MCH MCHC RDW Plt Count MPV PT 15.5 H INR 1.5 APTT 38.6 H Sodium Potassium Chloride Carbon Dioxide Anion Gap BUN Creatinine Estimated GFR POC Glucose 232 H Random Glucose Calcium Total Bilirubin AST ALT Alkaline Phosphatase Total Protein Albumin 01/05/18 14:40 WBC RBC Hgb Hct MCV MCH MCHC RDW Plt Count MPV PT INR APTT 44.5 H Sodium Potassium Chloride Carbon Dioxide Anion Gap BUN Creatinine Estimated GFR POC Glucose Random Glucose Calcium Total Bilirubin AST ALT Alkaline Phosphatase Total Protein Albumin Microbiology 01/04/18 12:45 Fluid - Pleural fluid Gram Stain - Final 01/04/18 12:45 Fluid - Pleural fluid Body Fluid Culture - Preliminary No growth in 24 hours 01/03/18 17:00 Fluid - Pleural fluid Acid Fast Bacilli Smear - Final No acid fast bacilli seen 01/02/18 18:34 Blood - Peripheral Aerobic Blood Culture - Preliminary No growth in 3 days 01/02/18 18:34 Blood - Peripheral Anaerobic Blood Culture - Preliminary No growth in 3 days 01/02/18 18:20 Blood - Peripheral Aerobic Blood Culture - Preliminary No growth in 3 days 01/02/18 18:20 Blood - Peripheral Anaerobic Blood Culture - Preliminary No growth in 3 days 01/03/18 17:00 Fluid - Pleural fluid Gram Stain - Final 01/03/18 17:00 Fluid - Pleural fluid Body Fluid Culture - Preliminary - Imaging Impressions Chest X-Ray 01/05/18 06:00 CONCLUSION: 1. No significant interval change. 2. Stable bilateral chest tubes with mild residual lower lung zone pleural- parenchymal opacities. Assessment and Plan - Assessment (1) Encephalopathy Code(s): G93.40 - Encephalopathy, unspecified Status: Acute (2) CVA (cerebral vascular accident) Code(s): I63.9 - Cerebral infarction, unspecified Status: Acute (3) Wound of sacral region Code(s): S31.000A - Unspecified open wound of lower back and pelvis without penetration into retroperitoneum, initial encounter Status: Acute (4) NSTEMI (non-ST elevated myocardial infarction) Code(s): I21.4 - Non-ST elevation (NSTEMI) myocardial infarction Status: Resolved (5) Anemia Code(s): D64.9 - Anemia, unspecified Status: Acute (6) Respiratory failure with hypoxia and hypercapnia Code(s): J96.91 - Respiratory failure, unspecified with hypoxia; J96.92 - Respiratory failure, unspecified with hypercapnia Status: Resolved (7) Optic neuritis Code(s): H46.9 - Unspecified optic neuritis Status: Resolved - Plan 77 years old male Acute on chronic resp failure s/p trach/PEG Severe sepsis Encephalopathy Healthcare associated pneumonia Large bilateral pleural effusion UTI with ESBL E. coli CVA Anemia s/p NSTEMI Optic neuritis Plan Neuro Impression: Monitor neuro status, spoke to patient's daughter she would like 2nd opinion for neurology Reconsulted neurology and Dr. Pereira has seen patient with encephalopathy, seizures, L [place] infarct. Status post systemic TPA on November 09 Repeat MRI unchanged; EEG with diffuse encephalopathy on aspirin, Plavix, statin Neuro is following, on Ritalin [place] Currently on IV heparin, overlap with coumadin. ff INR Neuropsychology is following Optic neuritis. Status post treatment with IV hydrocortisone Encephalopathy persists CV: NSTEMI Echo 10/19: LV systolic function is moderately reduced, EF 40-45%. Cardiology following- Dr. Hernández Monitor HR and BP keep MAP>65mmHg Cardura 2mg daily and Coreg 3.125mg BID on hold On Lipitor 80mg qhs Continue aspirin Plavix statins Pulm: Continue with TP keep sat >92% Trach changed from cuffless to size 6 on 12/31 Bronchodilators, ICU vent bundle Pulm toilet, trach care Large bilateral effusions on CT chest. Right-sided pigtail chest tube placed 01/03/2018, 1.35 L output since placement Pleural fluid studies consistent with transudative effusion ff output GI Continue tube feeds-Glucerna 1.5 with goal rate 60ml/hr On Pepcid 10mg BID : chronic kidney instufficiency Monitor renal function, electrolytes replacement per protocol Cr: 1.5 today ID- mulitple ID issues Sacral decub with possible underlying infection, osteomyelitis. - Sacral decub has eschar with possible underlying osteomyelitis. Patient family refused surgical debridement. UTI with prior history of ESBL E. coli Healthcare associated pneumonia with Klebsiella and ESBL E. coli Bialteral Pleural effusion- pigtail catheters in place 12/31 Wound cx: ESBL E.coli - ESBL E. coli +blood cultures on 10/24. Completed course of antibiotics. Urine culture on December 10 with Pseudomonas, pansensitive. Cipro stopped 12/17 -ID -Dr. Mariza Estrada following - on Imipenen Sputum and Urine cx as above Skin Scrotal Edema/ulcerations Has been evaluated by Urology: continue with clean intermittent catheter as needed, scrotal elevation Sacral wound -Seen by Plastic surgery; debridement declined per patient's family -Wound care is following- apply dressings per wound management recommendations Heme: Anemia GI bleed; Status post EGD colonoscopy. GI has signed off, patient with healed rectal ulcers and hemorrhoids. Monitor CBC, coags-Coumadin held for invasive procedures continue IV heparin Endo DM type 2 - A1C 9.6 On SSI for glycemic control consider starting scheduled long acting continue on glucerna TF GI prophylaxis- on Pepcid DVT prophylaxis- On IV heparin + coumadin overlap- ff INR (5) Anemia Qualifiers: Anemia type: unspecified type Qualified Code(s): D64.9 - Anemia, unspecified
--- NOTE | 2018-01-05 20:28 | P.PNNEU ---
Subjective Subjective Comments: No acute events reported Active Medications: Active Medications Acetaminophen (Tylenol) 650 mg PO Q6H PRN PRN Reason: FEVER/PAIN SCALE 1 TO 2 Last Admin: 01/03/18 15:32 Dose: 650 mg Al Hydroxide/Mg Hydroxide (Milk Of [place] Liq) 30 ml PO Q12H PRN PRN Reason: Mild constipation Albuterol (Duoneb Neb (Prn)) 1 ampul NEB Q2HR NEB PRN PRN Reason: SHORTNESS OF BREATH Atorvastatin Calcium (Llipitor) 80 mg PO HS ON LICENSE OF [facility] Last Admin: 01/04/18 22:16 Dose: 80 mg Carvedilol (Coreg) 3.125 mg PO BID ON LICENSE OF [facility] Last Admin: 12/31/17 22:42 Dose: 3.125 mg Chlorhexidine Gluconate (Peridex 0.12% Oral Kit) 15 ml SWISH-SPIT BID@0800, 1999 ON LICENSE OF [facility] Last Admin: 01/05/18 09:30 Dose: 15 ml Cod Liver Oil/Zinc Oxide (Desitin 40% Oint) 1 applicatio TOPICAL UNSCH PRN PRN Reason: DIAPER RASH Collagenase (Santyl Oint) 1 applicatio TOPICAL DAILY ON LICENSE OF [facility] Last Admin: 01/05/18 09:25 Dose: 1 applicatio Dextrose (D50w Vial) 25 ml IV.PUSH UNSCH PRN PRN Reason: HYPOGLYCEMIA-SEE COMMENTS Doxazosin Mesylate (Cardura) 4 mg PO DAILY ON LICENSE OF [facility] Last Admin: 12/31/17 09:52 Dose: Not Given Famotidine (Pepcid) 10 mg PO BID ON LICENSE OF [facility] Last Admin: 01/05/18 09:23 Dose: 10 mg Glucagon (Glucagon Inj) 1 mg OTHER UNSCH PRN PRN Reason: HYPOGLYCEMIA - SEE COMMENTS Haloperidol Lactate (Haldol Inj) 5 mg IV.PUSH Q4H PRN PRN Reason: agitation Heparin Sodium (Porcine) (Heparin Inj) 1,000 units OTHER WITH DIALYSIS PRN PRN Reason: SEE LABEL COMMENTS Hydrocortisone Acetate (Hemorrhoidal Hc Supp) 25 mg RECTAL BID ON LICENSE OF [facility] Last Admin: 01/05/18 09:23 Dose: 25 mg Hydromorphone HCl (Dilaudid Pf Inj) 0.5 mg IV.PUSH Q4H PRN PRN Reason: pain 8-10 or not taking po Hyoscyamine (Levsin Liq) 0.125 mg SL Q4H PRN PRN Reason: SECRETIONS Levetiracetam 500 mg/ Sodium (Chloride) 105 mls @ 400 mls/hr IV.SIG Q12H ON LICENSE OF [facility] Last Infusion: 01/05/18 19:34 Dose: Infused Pharmacy Profile Note (Coumadin Consult Pharmacy) mls @ 0 mls/hr OTHER UNSCH ON LICENSE OF [facility] Imipenem/Cilastatin Sodium 500 (mg/ Sodium Chloride) 100 mls @ 200 mls/hr IV.SIG Q8H ON LICENSE OF [facility] Last Infusion: 01/05/18 19:34 Dose: Infused Heparin Sodium/Dextrose (Heparin/D5w 25,000 U/250 Ml) 25,000 unit in 250 mls @ 10 mls/hr IV.CONT TITRATE PRN; Protocol PRN Reason: Per Protocol Last Admin: 01/05/18 10:36 Dose: 1,100 units/hr, 11 mls/hr Insulin Human Regular (Novolin R Supplemental Scale) 0 units SQ Q6HR ON LICENSE OF [facility]; Protocol Last Admin: 01/05/18 17:38 Dose: 7 units Ipratropium [place] (Atrovent Neb) 0.5 mg NEB BID NEB ON LICENSE OF [facility] Last Admin: 01/05/18 08:29 Dose: 0.5 mg Ipratropium [place] (Atrovent Neb) 0.5 mg NEB Q4HR NEB PRN PRN Reason: WHEEZING Last Admin: 01/03/18 03:37 Dose: 0.5 mg Methylphenidate HCl (Ritalin) 10 mg PO BID@0800,1200 ON LICENSE OF [facility] Last Admin: 01/05/18 12:41 Dose: 10 mg Metoclopramide HCl (Reglan Inj) 5 mg IV.PUSH Q8HR ON LICENSE OF [facility] Last Admin: 01/04/18 21:31 Dose: 5 mg Miscellaneous (Pill Splitter) 1 each OTHER UNSCH PRN PRN Reason: SEE LABEL COMMENTS Ondansetron HCl (Zofran Inj) 4 mg IV.PUSH Q6H PRN PRN Reason: NAUSEA OR VOMITING Polyethylene Glycol (Miralax) 17 gm PO DAILY ON LICENSE OF [facility] Last Admin: 01/05/18 09:26 Dose: 17 gm Pramoxine HCl (Proctofoam) 1 applicatio RECTAL Q6HR ON LICENSE OF [facility] Last Admin: 01/05/18 17:40 Dose: 1 applicatio Sennosides (Senokot) 17.2 mg PO Q12H PRN PRN Reason: Moderate constipation Sodium Chloride (Ns Flush) 2 ml IV.FLUSH UNSCH PRN PRN Reason: FLUSH AFTER USING IV ACCESS Sodium Chloride (Ns Flush) 2 ml IV.FLUSH BID ON LICENSE OF [facility] Last Admin: 01/05/18 09:25 Dose: 2 ml Sodium Chloride (Ns Flush) 10 ml IV.FLUSH UNSCH PRN PRN Reason: SEE LABEL COMMENTS Last Admin: 01/02/18 21:35 Dose: 10 ml Warfarin Sodium (Coumadin) 4 mg PO DAILY@1600 ON LICENSE OF [facility] Last Admin: 01/05/18 16:59 Dose: 4 mg Allergies/Adverse Reactions: Allergies Allergy/AdvReac Type Severity Reaction Status Date / Time No Known Allergies Allergy Verified 12/25/17 11:22 Physical Exam Vital signs: Vital Signs 01/04/18 20:30 01/04/18 20:45 01/04/18 21:00 Pulse Rate 96 H 99 H 99 H Respiratory Rate 20 Blood Pressure 91/55 L 97/54 L 100/53 L Pulse Oximetry 99 100 100 01/04/18 21:15 01/04/18 21:30 01/04/18 21:45 Pulse Rate 99 H 97 H 95 H Respiratory Rate Blood Pressure 92/51 L 93/51 L 91/55 L Pulse Oximetry 100 100 100 01/04/18 22:00 01/04/18 22:15 01/04/18 22:30 Pulse Rate 100 H 100 H 100 H Respiratory Rate Blood Pressure 98/56 L 92/51 L 99/56 L Pulse Oximetry 100 100 100 01/04/18 22:45 01/04/18 23:00 01/04/18 23:15 Pulse Rate 99 H 98 H 96 H Respiratory Rate Blood Pressure 89/53 L 91/55 L 93/51 L Pulse Oximetry 100 100 100 01/04/18 23:30 01/04/18 23:45 01/05/18 00:00 Pulse Rate 98 H 97 H 97 H Respiratory Rate Blood Pressure 100/54 L 99/50 L 95/50 L Pulse Oximetry 100 100 100 01/05/18 00:15 01/05/18 00:30 01/05/18 00:45 Pulse Rate 100 H 97 H 97 H Respiratory Rate Blood Pressure 88/50 L 101/51 L 95/53 L Pulse Oximetry 100 100 100 01/05/18 01:00 01/05/18 01:15 01/05/18 01:30 Pulse Rate 97 H 100 H 98 H Respiratory Rate Blood Pressure 98/53 L 88/52 L 86/48 L Pulse Oximetry 100 100 100 01/05/18 01:45 01/05/18 02:00 01/05/18 02:15 Pulse Rate 101 H 100 H 101 H Respiratory Rate Blood Pressure 100/57 L 92/55 L 88/51 L Pulse Oximetry 100 100 100 01/05/18 02:30 01/05/18 02:45 01/05/18 03:00 Pulse Rate 100 H 96 H 100 H Respiratory Rate Blood Pressure 100/57 L 97/52 L 93/52 L Pulse Oximetry 100 100 100 01/05/18 03:15 01/05/18 03:30 01/05/18 03:45 Pulse Rate 100 H 100 H 100 H Respiratory Rate Blood Pressure 90/51 L 89/50 L 95/53 L Pulse Oximetry 100 100 100 01/05/18 04:00 01/05/18 04:15 01/05/18 04:30 Pulse Rate 101 H 97 H 98 H Respiratory Rate Blood Pressure 101/58 L 95/50 L 90/52 L Pulse Oximetry 100 100 100 01/05/18 04:45 01/05/18 05:00 01/05/18 05:15 Pulse Rate 99 H 99 H 99 H Respiratory Rate Blood Pressure 93/54 L 91/52 L 89/54 L Pulse Oximetry 100 100 100 01/05/18 05:30 01/05/18 05:45 01/05/18 06:00 Pulse Rate 100 H 102 H 76 Respiratory Rate Blood Pressure 92/50 L 94/55 L 99/52 L Pulse Oximetry 100 100 99 01/05/18 06:15 01/05/18 06:30 01/05/18 06:45 Pulse Rate 100 H 102 H 103 H Respiratory Rate Blood Pressure 88/53 L 94/53 L 98/55 L Pulse Oximetry 98 100 100 01/05/18 07:00 01/05/18 07:15 01/05/18 07:30 Pulse Rate 104 H 106 H 102 H Respiratory Rate Blood Pressure 105/56 L 101/56 L 93/50 L Pulse Oximetry 100 100 100 01/05/18 07:45 01/05/18 08:00 01/05/18 08:15 Pulse Rate 104 H 106 H 106 H Respiratory Rate 18 Blood Pressure 108/57 L 96/54 L 103/57 L Pulse Oximetry 99 100 100 01/05/18 08:30 01/05/18 08:45 01/05/18 09:00 Pulse Rate 106 H 108 H 106 H Respiratory Rate Blood Pressure 100/55 L 106/56 L 98/55 L Pulse Oximetry 100 100 100 01/05/18 09:15 01/05/18 09:30 01/05/18 09:45 Pulse Rate 106 H 109 H 107 H Respiratory Rate Blood Pressure 101/57 L 107/62 93/52 L Pulse Oximetry 100 100 100 01/05/18 10:00 01/05/18 10:15 01/05/18 10:30 Pulse Rate 105 H 104 H 103 H Respiratory Rate Blood Pressure 100/56 L 105/55 L 97/54 L Pulse Oximetry 99 100 100 01/05/18 10:45 01/05/18 11:00 01/05/18 11:15 Pulse Rate 106 H 106 H 107 H Respiratory Rate Blood Pressure 94/51 L 101/61 109/58 L Pulse Oximetry 96 100 100 01/05/18 11:30 01/05/18 11:51 01/05/18 12:00 Pulse Rate 104 H 104 H 104 H Respiratory Rate Blood Pressure 110/70 106/61 Pulse Oximetry 100 98 99 01/05/18 13:00 01/05/18 13:16 01/05/18 13:31 Pulse Rate 108 H 107 H 108 H Respiratory Rate Blood Pressure 124/56 L 111/59 L Pulse Oximetry 100 87 L 100 01/05/18 13:45 01/05/18 14:00 01/05/18 14:15 Pulse Rate 106 H 106 H 106 H Respiratory Rate Blood Pressure 99/54 L 102/57 L 92/54 L Pulse Oximetry 100 100 100 01/05/18 14:30 01/05/18 14:45 01/05/18 15:00 Pulse Rate 107 H 108 H 105 H Respiratory Rate Blood Pressure 107/65 124/65 107/57 L Pulse Oximetry 100 100 100 01/05/18 15:15 01/05/18 15:30 01/05/18 15:45 Pulse Rate 107 H 104 H 104 H Respiratory Rate Blood Pressure 109/60 103/56 L 104/58 L Pulse Oximetry 100 100 100 01/05/18 16:00 01/05/18 16:15 01/05/18 16:30 Pulse Rate 103 H 104 H 104 H Respiratory Rate Blood Pressure 105/58 L 103/58 L 108/63 Pulse Oximetry 100 100 100 01/05/18 18:00 Pulse Rate 92 H Respiratory Rate Blood Pressure Pulse Oximetry Intake & Output 01/05/18 01/05/18 01/06/18 06:59 18:59 06:59 Intake Total 1544 / 1544 1209 / 1209 Output Total 1000 / 1000 1950 Balance 544 / 544 -742 / -742 Weight 83 kg Intake: IV 555 / 555 100 / 100 Heparin/D5W 25,000 U/250 mL 25, 250 / 250 000 unit In 250 ml @ 1,000 UNITS/HR 10 mls/hr IV.CONT TITRATE PRN Rx#:[id number] Primaxin Inj 500 MG In NS Inj 200 / 200 100 / 100 100 / 100 100 ML @ 200 mls/hr IV.SIG Q8H EDE Rx#:[id number] Keppra Inj 500 MG In NS Inj 100 105 / 105 105 / 105 ML @ 400 mls/hr IV.SIG Q12H EDE Rx#:[id number] Oral 0 / 0 0 / 0 Tube Feeding 746 / 746 746 / 746 Tube Irrigant 120 / 120 Water Bolus Amount 120 / 120 120 / 120 Other 123 / 123 123 / 123 Output: Urine 1300 / 1300 Emesis 1 / 1 Urine Amount (Catheter) 900 / 900 550 / 550 Indwelling Urethral Catheter 900 / 900 550 / 550 Chest Tube Drainage 100 / 100 100 / 100 Left 50 / 50 50 / 50 Right Mid-Axillary Chest 50 / 50 50 / 50 Other: # Voids 2 # Incontinent Voids 4 Date of Last Bowel Movement 01/03/18 01/03/18 # Bowel Movements 1 1 # Incontinent Bowel Movements 0 0 - Routine Neurological Exam nonresponsive. 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 EEG---consistent with encephalopathy Laboratory Results - last 24 hr 01/04/18 01/05/18 01/05/18 23:28 02:22 05:58 WBC RBC Hgb Hct MCV MCH MCHC RDW Plt Count MPV PT INR APTT 47.0 H D Sodium Potassium Chloride Carbon Dioxide Anion Gap BUN Creatinine Estimated GFR POC Glucose 200 H 195 H Random Glucose Calcium Total Bilirubin AST ALT Alkaline Phosphatase Total Protein Albumin 01/05/18 01/05/18 01/05/18 06:59 06:59 06:59 WBC 11.3 H RBC 2.83 L Hgb 8.2 L Hct 25.6 L MCV 90.6 MCH 29.1 MCHC 32.1 RDW 20.6 H Plt Count 467 H MPV 8.2 PT 15.5 H INR 1.5 APTT Sodium 145 Potassium 4.2 Chloride 109 H Carbon Dioxide 29.5 Anion Gap 7 BUN 47 H Creatinine 1.46 H Estimated GFR 47 L POC Glucose Random Glucose 191 H Calcium 8.0 L Total Bilirubin 0.3 AST 29 ALT 29 Alkaline Phosphatase 123 H Total Protein 6.5 D Albumin 1.4 L 01/05/18 01/05/18 01/05/18 09:33 12:38 14:40 WBC RBC Hgb Hct MCV MCH MCHC RDW Plt Count MPV PT INR APTT 38.6 H 44.5 H Sodium Potassium Chloride Carbon Dioxide Anion Gap BUN Creatinine Estimated GFR POC Glucose 232 H Random Glucose Calcium Total Bilirubin AST ALT Alkaline Phosphatase Total Protein Albumin 01/05/18 17:25 WBC RBC Hgb Hct MCV MCH MCHC RDW Plt Count MPV PT INR APTT Sodium Potassium Chloride Carbon Dioxide Anion Gap BUN Creatinine Estimated GFR POC Glucose 262 H Random Glucose Calcium Total Bilirubin AST ALT Alkaline Phosphatase Total Protein Albumin Microbiology 01/04/18 12:45 Gram Stain - Final Fluid - Pleural fluid Body Fluid Culture - Preliminary No growth in 24 hours 01/03/18 17:00 Acid Fast Bacilli Smear - Final Fluid - Pleural fluid No acid fast bacilli seen 01/02/18 18:34 Aerobic Blood Culture - Preliminary Blood - Peripheral No growth in 3 days Anaerobic Blood Culture - Preliminary No growth in 3 days 01/02/18 18:20 Aerobic Blood Culture - Preliminary Blood - Peripheral No growth in 3 days Anaerobic Blood Culture - Preliminary No growth in 3 days 01/03/18 17:00 Gram Stain - Final Fluid - Pleural fluid Body Fluid Culture - Preliminary Review/Management - Diagnosis (1) CVA (cerebral vascular accident) Code(s): I63.9 - Cerebral infarction, unspecified Status: Acute Current Visit: Yes (2) CVA (cerebral vascular accident) Code(s): I63.9 - Cerebral infarction, unspecified Status: Acute Current Visit: Yes
[2018-01-06] MEDS: Insulin NovoLIN Regular Correctional Sugar Inj SQ SCH ×3 (01:56→18:57)
[2018-01-06] MEDS: Hydrocortisone Acetate 25 MG Supp RECTAL SCH ×3 (05:43→20:32)
[2018-01-06 06:45] LABS: INR 1.5 Ratio; Prothrombin Time 14.9 sec (9.8-11.6)
[2018-01-06] MEDS: Famotidine 20 MG Tablet PO SCH ×2 (08:37→20:32)
[2018-01-06] MEDS: Polyethylene Glycol 3350 17 GM Packet PO SCH (08:40)
--- NOTE | 2018-01-06 08:51 | P.CONWOU ---
History of Present Illness Service: 01/06/18 Requesting Physician: Ish Go Reason for Consult: Sacral ulcer Primary Care Provider: No Primary Care Physician Chief Complaint: Sacral Ulcer History of Present Illness: Here to see patient with the wound care team for evaluation of sacral wound. 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 Patient has a history of hypertension as well as type 2 diabetes. His daughter is at bedside and is concerned about the sacral ulcer. She voices that they are people of [place] and is prayerful that he will get through this. Patient is on ventilator and non responsive to stimuli at this time. Review of Systems Skin/Breast: Reports wounds (See wound assessment notes) PMFSH - Travel History History of Recent Travel: Yes (Patient flew from [place]) Medications and Allergies Active Medications: Active Medications Acetaminophen (Tylenol) 650 mg PO Q6H PRN PRN Reason: FEVER/PAIN SCALE 1 TO 2 Last Admin: 01/03/18 15:32 Dose: 650 mg Al Hydroxide/Mg Hydroxide (Milk Of [place]) 30 ml PO Q12H PRN PRN Reason: Mild constipation Albuterol (Duoneb Neb (Prn)) 1 ampul NEB Q2HR NEB PRN PRN Reason: SHORTNESS OF BREATH Atorvastatin Calcium (Llipitor) 80 mg PO HS [facility] Last Admin: 01/05/18 20:57 Dose: 80 mg Carvedilol (Coreg) 3.125 mg PO BID [facility] Last Admin: 12/31/17 22:42 Dose: 3.125 mg Chlorhexidine Gluconate (Peridex 0.12% Oral Kit) 15 ml SWISH-SPIT BID@0800, 2000 [facility] Last Admin: 01/05/18 20:56 Dose: 15 ml Cod Liver Oil/Zinc Oxide (Desitin 40% Oint) 1 applicatio TOPICAL UNSCH PRN PRN Reason: DIAPER RASH Collagenase (Santyl Oint) 1 applicatio TOPICAL DAILY [facility] Last Admin: 01/05/18 09:25 Dose: 1 applicatio Dextrose (D50w Vial) 25 ml IV.PUSH UNSCH PRN PRN Reason: HYPOGLYCEMIA-SEE COMMENTS Doxazosin Mesylate (Cardura) 4 mg PO DAILY [facility] Last Admin: 12/31/17 09:52 Dose: Not Given Famotidine (Pepcid) 10 mg PO BID [facility] Last Admin: 01/05/18 20:57 Dose: 10 mg Glucagon (Glucagon Inj) 1 mg OTHER UNSCH PRN PRN Reason: HYPOGLYCEMIA - SEE COMMENTS Haloperidol Lactate (Haldol Inj) 5 mg IV.PUSH Q4H PRN PRN Reason: agitation Heparin Sodium (Porcine) (Heparin Inj) 1,000 units OTHER WITH DIALYSIS PRN PRN Reason: SEE LABEL COMMENTS Hydrocortisone Acetate (Hemorrhoidal Hc Supp) 25 mg RECTAL BID [facility] Last Admin: 01/06/18 05:43 Dose: 25 mg Hydromorphone HCl (Dilaudid Pf Inj) 0.5 mg IV.PUSH Q4H PRN PRN Reason: pain 8-10 or not taking po Hyoscyamine (Levsin Liq) 0.125 mg SL Q4H PRN PRN Reason: SECRETIONS Levetiracetam 500 mg/ Sodium (Chloride) 105 mls @ 400 mls/hr IV.SIG Q12H [facility] Last Infusion: 01/05/18 21:30 Dose: Infused Pharmacy Profile Note (Coumadin Consult Pharmacy) mls @ 0 mls/hr OTHER UNSCH [facility] Imipenem/Cilastatin Sodium 500 (mg/ Sodium Chloride) 100 mls @ 200 mls/hr IV.SIG Q8H [facility] Last Infusion: 01/06/18 02:57 Dose: Infused Heparin Sodium/Dextrose (Heparin/D5w 25,000 U/250 Ml) 25,000 unit in 250 mls @ 10 mls/hr IV.CONT TITRATE PRN; Protocol PRN Reason: Per Protocol Last Admin: 01/05/18 10:36 Dose: 1,100 units/hr, 11 mls/hr Insulin Human Regular (Novolin R Supplemental Scale) 0 units SQ Q6HR EDE; Protocol Last Admin: 01/06/18 05:40 Dose: 4 units Ipratropium [place] (Atrovent Neb) 0.5 mg NEB BID NEB [facility] Last Admin: 01/06/18 08:12 Dose: 0.5 mg Ipratropium [place] (Atrovent Neb) 0.5 mg NEB Q4HR NEB PRN PRN Reason: WHEEZING Last Admin: 01/03/18 03:37 Dose: 0.5 mg Methylphenidate HCl (Ritalin) 10 mg PO BID@0800,1200 [facility] Last Admin: 01/05/18 12:41 Dose: 10 mg Metoclopramide HCl (Reglan Inj) 5 mg IV.PUSH Q8HR [facility] Last Admin: 01/06/18 05:40 Dose: 5 mg Miscellaneous (Pill Splitter) 1 each OTHER UNSCH PRN PRN Reason: SEE LABEL COMMENTS Ondansetron HCl (Zofran Inj) 4 mg IV.PUSH Q6H PRN PRN Reason: NAUSEA OR VOMITING Polyethylene Glycol (Miralax) 17 gm PO DAILY [facility] Last Admin: 01/05/18 09:26 Dose: 17 gm Pramoxine HCl (Proctofoam) 1 applicatio RECTAL Q6HR [facility] Last Admin: 01/06/18 05:43 Dose: 1 applicatio Sennosides (Senokot) 17.2 mg PO Q12H PRN PRN Reason: Moderate constipation Sodium Chloride (Ns Flush) 2 ml IV.FLUSH UNSCH PRN PRN Reason: FLUSH AFTER USING IV ACCESS Sodium Chloride (Ns Flush) 2 ml IV.FLUSH BID [facility] Last Admin: 01/05/18 20:57 Dose: 2 ml Sodium Chloride (Ns Flush) 10 ml IV.FLUSH UNSCH PRN PRN Reason: SEE LABEL COMMENTS Last Admin: 01/02/18 21:35 Dose: 10 ml Warfarin Sodium (Coumadin) 4 mg PO DAILY@1600 [facility] Last Admin: 01/05/18 16:59 Dose: 4 mg Allergies Allergy/AdvReac Type Severity Reaction Status Date / Time Glucerna 1.5 AdvReac Vomiting Uncoded 02/09/18 12:04 Home Medications Medication Instructions Recorded Confirmed Type Actrapid 80 SUB-Q BID 12/25/17 History loperamide 2 mg PO DIRECTED PRN 12/25/17 12/25/17 History nepafenac 1 drp OPHTHALMIC (EYE) 12/25/17 History tobramycin-dexamethasone [TobraDex] 1 drp OPHTHALMIC (EYE) 12/25/17 12/25/17 History Physical Exam Vital signs: Vital Signs 01/05/18 09:00 01/05/18 09:15 01/05/18 09:30 Temperature Pulse Rate 106 H 106 H 109 H Respiratory Rate Blood Pressure 98/55 L 101/57 L 107/62 Pulse Oximetry 100 100 100 01/05/18 09:45 01/05/18 10:00 01/05/18 10:15 Temperature Pulse Rate 107 H 105 H 104 H Respiratory Rate Blood Pressure 93/52 L 100/56 L 105/55 L Pulse Oximetry 100 99 100 01/05/18 10:30 01/05/18 10:45 01/05/18 11:00 Temperature Pulse Rate 103 H 106 H 106 H Respiratory Rate Blood Pressure 97/54 L 94/51 L 101/61 Pulse Oximetry 100 96 100 01/05/18 11:15 01/05/18 11:30 01/05/18 11:51 Temperature Pulse Rate 107 H 104 H 104 H Respiratory Rate Blood Pressure 109/58 L 110/70 106/61 Pulse Oximetry 100 100 98 01/05/18 12:00 01/05/18 13:00 01/05/18 13:16 Temperature Pulse Rate 104 H 108 H 107 H Respiratory Rate Blood Pressure 124/56 L Pulse Oximetry 99 100 87 L 01/05/18 13:31 01/05/18 13:45 01/05/18 14:00 Temperature Pulse Rate 108 H 106 H 106 H Respiratory Rate Blood Pressure 111/59 L 99/54 L 102/57 L Pulse Oximetry 100 100 100 01/05/18 14:15 01/05/18 14:30 01/05/18 14:45 Temperature Pulse Rate 106 H 107 H 108 H Respiratory Rate Blood Pressure 92/54 L 107/65 124/65 Pulse Oximetry 100 100 100 01/05/18 15:00 01/05/18 15:15 01/05/18 15:30 Temperature Pulse Rate 105 H 107 H 104 H Respiratory Rate Blood Pressure 107/57 L 109/60 103/56 L Pulse Oximetry 100 100 100 01/05/18 15:45 01/05/18 16:00 01/05/18 16:15 Temperature Pulse Rate 104 H 103 H 104 H Respiratory Rate Blood Pressure 104/58 L 105/58 L 103/58 L Pulse Oximetry 100 100 100 01/05/18 16:30 01/05/18 18:00 01/05/18 19:00 Temperature Pulse Rate 104 H 92 H Respiratory Rate Blood Pressure 108/63 Pulse Oximetry 100 100 01/05/18 20:00 01/05/18 21:09 01/05/18 22:00 Temperature 99.4 F Pulse Rate 106 H 110 H 112 H Respiratory Rate 18 18 Blood Pressure 104/62 Pulse Oximetry 100 01/06/18 00:00 01/06/18 02:00 01/06/18 03:39 Temperature 98.9 F Pulse Rate 106 H 104 H Respiratory Rate 18 Blood Pressure 105/55 L Pulse Oximetry 100 100 01/06/18 04:00 01/06/18 06:00 01/06/18 08:13 Temperature 99.1 F Pulse Rate 102 H 101 H 99 H Respiratory Rate 18 18 Blood Pressure 111/59 L Pulse Oximetry 100 100 Intake & Output 01/05/18 01/06/18 01/06/18 18:59 06:59 18:59 Intake Total 1209 / 1209 1250 / 1250 Output Total 1951 / 1951 520 / 520 Balance -742 / -742 730 / 730 Weight 83.4 kg Intake: IV 100 / 100 410 / 410 Primaxin Inj 500 MG In NS Inj 100 / 100 200 / 200 100 ML @ 200 mls/hr IV.SIG Q8H EDE Rx#:[id number] Keppra Inj 500 MG In NS Inj 100 210 / 210 ML @ 400 mls/hr IV.SIG Q12H EDE Rx#:[id number] Oral 0 / 0 0 / 0 Tube Feeding 746 / 746 720 / 720 Tube Irrigant 120 / 120 Water Bolus Amount 120 / 120 120 / 120 Other 123 / 123 Output: Urine 1300 / 1300 450 / 450 Emesis 1 / 1 Urine Amount (Catheter) 550 / 550 Indwelling Urethral Catheter 550 / 550 Chest Tube Drainage 100 / 100 70 / 70 Left 50 / 50 70 / 70 Right Mid-Axillary Chest 50 / 50 0 / 0 Other: # Voids 2 # Incontinent Voids 4 Date of Last Bowel Movement 01/03/18 01/06/18 # Bowel Movements 1 # Incontinent Bowel Movements 0 1 - Urinary Catheter Management Straight Cath placed during this visit: yes Urethral indwelling: Yes Reason for continuing: Not indwelling catheter Insertion date: 01/01/18 Insertion time: 16:00 Indwelling Urethral Catheter Cath placed during this visit: yes Reason for continuing: Acute urinary retention Insertion date: 01/01/18 Insertion time: 16:30 Wound/Pressure Injury - Patient Status Premedicated for Pain Prior to Dressing Change: No - Wound Sacrum Wound Staging: Unstageable Wound Assessment: Ongoing Wound Type: Pressure Injury Is This a Chronic Wound: Yes Requested from Provider a Wound Care Consult: No Length (cm): 10 (cm) Width (cm): 7 (cm) Depth (cm): 0 (eschar) Wound Bed Appearance: Necrotic Surrounding Tissue Appearance: [place] Surrounding Tissue Temperature: Warm Drainage Description: Serosanguinous Drainage Amount: None Drainage Odor: No Odor Dressing Status: Changed Cleansing Solution: Saline Topical: Enzymatic Debridement Ointment Primary Dressing: Gauze Pad Cover Dressing: Adhesive Dressing Wound Dressing Change Date: 12/28/17 Scrotum Wound Assessment: Ongoing Wound Type: Pressure Injury Is This a Chronic Wound: Yes Requested from Provider a Wound Care Consult: Yes Wound Bed Appearance: Edematous, [place], Red Surrounding Tissue Appearance: Erythema Surrounding Tissue Temperature: Warm Drainage Description: Serous Drainage Amount: None Drainage Odor: No Odor Dressing Status: Open to Air Cleansing Solution: Saline Topical: calazime cream Wound Dressing Change Date: 12/28/17 Incision - Patient Status Premedicated for Pain Prior to Dressing Change: No Assessment and Plan - Assessment (1) Unstageable pressure ulcer of sacral region Code(s): L89.150 - Pressure ulcer of sacral region, unstageable Status: Chronic Plan: 01/06/2018: Wound dimensions this week or 10 cm x 7 cm by eschar. This is an unstageable sacral ulcer. This was sharply debrided to remove slough as well as devitalized tissue until a good bleeding base was achieved. Was then cleaned with normal saline and nickel thick Santyl applied to the wound bed and covered with moistened gauze and border gauze. Care instructions discussed with both daughter and nurse. (2) Respiratory failure with hypoxia and hypercapnia Code(s): J96.91 - Respiratory failure, unspecified with hypoxia; J96.92 - Respiratory failure, unspecified with hypercapnia Status: Resolved Plan: Currently on ventilator. Pulmonology on board. (3) Dermatitis associated with moisture Code(s): L30.8 - Other specified dermatitis Status: Acute Plan: This is on the scrotum. Area cleaned with normal saline and then skin prep and calazyme applied. Patient tolerated this well. (4) Scrotal erythema Code(s): N50.89 - Other specified disorders of the male genital organs Status : Acute Plan: Secondary to moisture associated dermatitis. Cleaned with normal saline and skin prep and calazyme thickly applied. Discussed rational for treatment with patient's daughter.
--- NOTE | 2018-01-06 09:16 | P.PN ---
Subjective Interval history: OBTUNDED ON TTUBE BILATERAL CHEST TUBES IN PLACE Physical Exam Vital signs: Vital Signs 01/05/18 09:15 01/05/18 09:30 01/05/18 09:45 Temperature Pulse Rate 106 H 109 H 107 H Respiratory Rate Blood Pressure 101/57 L 107/62 93/52 L Pulse Oximetry 100 100 100 01/05/18 10:00 01/05/18 10:15 01/05/18 10:30 Temperature Pulse Rate 105 H 104 H 103 H Respiratory Rate Blood Pressure 100/56 L 105/55 L 97/54 L Pulse Oximetry 99 100 100 01/05/18 10:45 01/05/18 11:00 01/05/18 11:15 Temperature Pulse Rate 106 H 106 H 107 H Respiratory Rate Blood Pressure 94/51 L 101/61 109/58 L Pulse Oximetry 96 100 100 01/05/18 11:30 01/05/18 11:51 01/05/18 12:00 Temperature Pulse Rate 104 H 104 H 104 H Respiratory Rate Blood Pressure 110/70 106/61 Pulse Oximetry 100 98 99 01/05/18 13:00 01/05/18 13:16 01/05/18 13:31 Temperature Pulse Rate 108 H 107 H 108 H Respiratory Rate Blood Pressure 124/56 L 111/59 L Pulse Oximetry 100 87 L 100 01/05/18 13:45 01/05/18 14:00 01/05/18 14:15 Temperature Pulse Rate 106 H 106 H 106 H Respiratory Rate Blood Pressure 99/54 L 102/57 L 92/54 L Pulse Oximetry 100 100 100 01/05/18 14:30 01/05/18 14:45 01/05/18 15:00 Temperature Pulse Rate 107 H 108 H 105 H Respiratory Rate Blood Pressure 107/65 124/65 107/57 L Pulse Oximetry 100 100 100 01/05/18 15:15 01/05/18 15:30 01/05/18 15:45 Temperature Pulse Rate 107 H 104 H 104 H Respiratory Rate Blood Pressure 109/60 103/56 L 104/58 L Pulse Oximetry 100 100 100 01/05/18 16:00 01/05/18 16:15 01/05/18 16:30 Temperature Pulse Rate 103 H 104 H 104 H Respiratory Rate Blood Pressure 105/58 L 103/58 L 108/63 Pulse Oximetry 100 100 100 01/05/18 18:00 01/05/18 19:00 01/05/18 20:00 Temperature 99.4 F Pulse Rate 92 H 106 H Respiratory Rate 18 Blood Pressure 104/62 Pulse Oximetry 100 100 01/05/18 21:09 01/05/18 22:00 01/06/18 00:00 Temperature 98.9 F Pulse Rate 110 H 112 H 106 H Respiratory Rate 18 18 Blood Pressure 105/55 L Pulse Oximetry 100 01/06/18 02:00 01/06/18 03:39 01/06/18 04:00 Temperature 99.1 F Pulse Rate 104 H 102 H Respiratory Rate 18 Blood Pressure 111/59 L Pulse Oximetry 100 100 01/06/18 06:00 01/06/18 08:13 Temperature Pulse Rate 101 H 99 H Respiratory Rate 18 Blood Pressure Pulse Oximetry 100 Intake & Output 01/05/18 01/06/18 01/06/18 18:59 06:59 18:59 Intake Total 1209 / 1209 1250 / 1250 Output Total 1950 / 1950 520 / 520 Balance -742 / -742 730 / 730 Weight 83.4 kg Intake: IV 100 / 100 410 / 410 Primaxin Inj 500 MG In NS Inj 100 / 100 200 / 200 100 ML @ 200 mls/hr IV.SIG Q8H EDE Rx#:[id number] Keppra Inj 500 MG In NS Inj 100 210 / 210 ML @ 400 mls/hr IV.SIG Q12H EDE Rx#:[id number] Oral 0 / 0 0 / 0 Tube Feeding 746 / 746 720 / 720 Tube Irrigant 120 / 120 Water Bolus Amount 120 / 120 120 / 120 Other 123 / 123 Output: Urine 1300 / 1300 450 / 450 Emesis 1 / 1 Urine Amount (Catheter) 550 / 550 Indwelling Urethral Catheter 550 / 550 Chest Tube Drainage 100 / 100 70 / 70 Left 50 / 50 70 / 70 Right Mid-Axillary Chest 50 / 50 0 / 0 Other: # Voids 2 # Incontinent Voids 4 Date of Last Bowel Movement 01/03/18 01/06/18 # Bowel Movements 1 # Incontinent Bowel Movements 0 1 Narrative: encephalopathic, eyes opened to call of name, not interactive HEAD: Normocephalic. EYES: No scleral icterus. No injection or drainage. NECK: Supple, trachea midline. No JVD or lymphadenopathy. + trach CARDIOVASCULAR: Regular rate and rhythm without murmurs, gallops, or rubs. RESPIRATORY: Breath sounds equal bilaterally, diminished at bases. No accessory muscle use. Right pigtail chest tube in place Left pigtail catheter in place GASTROINTESTINAL: Abdomen soft, non-tender, nondistended. +PEG tube in place garcia in place MUSCULOSKELETAL: No cyanosis, or edema. some superficail wounds Neuro: opens eyes to painful stimuli. - Urinary Catheter Management Straight Cath placed during this visit: yes Urethral indwelling: Yes Reason for continuing: Not indwelling catheter Insertion date: 01/01/18 Insertion time: 16:00 Indwelling Urethral Catheter Cath placed during this visit: yes Reason for continuing: Acute urinary retention Insertion date: 01/01/18 Insertion time: 16:30 Results - Labs CBC & Chem 7: 01/05/18 06:59 01/05/18 06:59 Laboratory Results - last 24 hr 01/05/18 01/05/18 01/05/18 09:33 12:38 14:40 PT INR APTT 38.6 H 44.5 H POC Glucose 232 H 01/05/18 01/05/18 01/06/18 17:25 20:17 00:18 PT INR APTT 47.9 H POC Glucose 262 H 261 H 01/06/18 01/06/18 01/06/18 05:33 05:34 05:34 PT 14.9 H INR 1.5 APTT 43.5 H POC Glucose 214 H 01/06/18 08:50 PT INR APTT POC Glucose 209 H Microbiology 01/04/18 12:45 Fluid - Pleural fluid Gram Stain - Final 01/04/18 12:45 Fluid - Pleural fluid Body Fluid Culture - Preliminary No growth in 24 hours 01/03/18 17:00 Fluid - Pleural fluid Acid Fast Bacilli Smear - Final No acid fast bacilli seen 01/02/18 18:34 Blood - Peripheral Aerobic Blood Culture - Preliminary No growth in 3 days 01/02/18 18:34 Blood - Peripheral Anaerobic Blood Culture - Preliminary No growth in 3 days 01/02/18 18:20 Blood - Peripheral Aerobic Blood Culture - Preliminary No growth in 3 days 01/02/18 18:20 Blood - Peripheral Anaerobic Blood Culture - Preliminary No growth in 3 days 01/03/18 17:00 Fluid - Pleural fluid Gram Stain - Final 01/03/18 17:00 Fluid - Pleural fluid Body Fluid Culture - Preliminary Assessment and Plan - Plan RESPIRATORY FAILURE cva cad respiratory failure post trach bilateral effusions bilateral chest tubes in place plan o2 as needed PULM TOILET REMOVE CHEST TUBES WHEN POSSIBLE
--- NOTE | 2018-01-06 10:26 | P.DIET ---
Nutritional Evaluation Type of nutrition evaluation: follow-up Nutrition consult regarding: Tube Feeding Nutrition screening: Pressure Injury Screening comments: 01/05 WOCN note: Sacral wound unstageable-please see note in EMR Subjective Subjective Comments: non-responsive Objective - Diagnosis Optic Neuritis - Objective Body Weight Used for Calculations: IBW (70kg) Energy Needs - Lower Range (kCal/kg): 30 Energy Needs - Upper Range (kCal/kg): 35 Lower Limit kCal/kg (kCals): 2,100 Upper Limit kCal/kg (kCals): 2,450 Lower Limit Protein Factor (Grams per Kg): 1.2 Upper Limit Protein Factor (Grams per Kg): 1.5 Lower Protein Needs (Protein): 84 Upper Protein Needs (Protein): 105 Fluid Factor (ml/kg): 30 Estimated Fluid Needs (ml): 2,100 Dietitian Reviewed in Medical Record: Curent medications, Intake & Output, Labs , Tube feeding, Wound/DTI Diet Order: TF'ing ONLY Glucerna 1.5 @ goalr ate 60ml/hr Objective Comments: PMH: HTN, DM s/p mutliple intubations/extubations 12/02 s/p PEG tube and trach Labs include: WBC 11.3, Hgb 8.2, Hct 25.6, Cr 1.46, Glu 191, POC Glu 232, 261, 209 Meds Include: Reglan +2 BM's Feeding - Current Tube Feeding Tube Feeding Product: Glucerna 1.5 Tube Feeding Rate: 60 Tube Feeding Route: gastrostomy Current kCals Provided by Tube Feedin,160 Current Protein Provided by Tube Feeding (gPRO): 119 Current Free H2O Provided (m/l): 1,093 Assessment Assessment: Pt continues at nutritional risk r/t extended hosptial stay, need for TF'ing and increased needs for unstageable wound. Current TF Glucerna 1.5 running at goal rate is adequated to meet pt's nutritional needs. However, due to unstageable wound, recommend the addition of Sharif supplement for wound healing. Sharif w/1-packet bid via feeding tube. Labs/electrolytes reviewed. Wt changes noted. Recommendations: 1. TF Glucerna 1.5 @ goal rate 60ml/hr 2. Rec addition of Sharif supplement for wound healing: Sharif w/1-packet bid via feeding tube Dietitian to Monitor: Lab values, Electrolytes, Renal labs, Glucose level, Intake & Output, Tube feeding tolerance, Weight change, Residuals, Wound/skin status, Medical course
[2018-01-06] MEDS: Heparin Drip 25,000 UNIT/250 ML BAG IV.CONT PRN (11:40)
--- NOTE | 2018-01-06 17:52 | P.PN ---
Subjective Interval history: eyes opened to vigorous calling of his name and stimulation tolerating tube feedings sinus on telemetry Physical Exam Vital signs: Vital Signs 01/05/18 18:00 01/05/18 19:00 01/05/18 20:00 Temperature 99.4 F Pulse Rate 92 H 106 H Respiratory Rate 18 Blood Pressure 104/62 Pulse Oximetry 100 100 01/05/18 21:09 01/05/18 22:00 01/06/18 00:00 Temperature 98.9 F Pulse Rate 110 H 112 H 106 H Respiratory Rate 18 18 Blood Pressure 105/55 L Pulse Oximetry 100 01/06/18 02:00 01/06/18 03:39 01/06/18 04:00 Temperature 99.1 F Pulse Rate 104 H 102 H Respiratory Rate 18 Blood Pressure 111/59 L Pulse Oximetry 100 100 01/06/18 06:00 01/06/18 08:13 Temperature Pulse Rate 101 H 99 H Respiratory Rate 18 Blood Pressure Pulse Oximetry 100 Intake & Output 01/05/18 01/06/18 01/06/18 18:59 06:59 18:59 Intake Total 1209 / 1209 1250 / 1250 250 / 250 Output Total 1950 / 1950 520 / 520 Balance -742 / -742 730 / 730 250 / 250 Weight 83.4 kg Intake: IV 100 / 100 410 / 410 250 / 250 Heparin/D5W 25,000 U/250 mL 25, 250 / 250 000 unit In 250 ml @ 1,000 UNITS/HR 10 mls/hr IV.CONT TITRATE PRN Rx#:[id number] Primaxin Inj 500 MG In NS Inj 100 / 100 200 / 200 100 ML @ 200 mls/hr IV.SIG Q8H EDE Rx#:[id number] Keppra Inj 500 MG In NS Inj 100 210 / 210 ML @ 400 mls/hr IV.SIG Q12H EDE Rx#:[id number] Oral 0 / 0 0 / 0 Tube Feeding 746 / 746 720 / 720 Tube Irrigant 120 / 120 Water Bolus Amount 120 / 120 120 / 120 Other 123 / 123 Output: Urine 1300 / 1300 450 / 450 Emesis 1 / 1 Urine Amount (Catheter) 550 / 550 Indwelling Urethral Catheter 550 / 550 Chest Tube Drainage 100 / 100 70 / 70 Left 50 / 50 70 / 70 Right Mid-Axillary Chest 50 / 50 0 / 0 Other: # Voids 2 # Incontinent Voids 4 Date of Last Bowel Movement 01/03/18 01/06/18 # Bowel Movements 1 # Incontinent Bowel Movements 0 1 Narrative: eyes opened to call of name, not interactive, not tracking HEAD: Normocephalic. EYES: No scleral icterus. No injection or drainage. NECK: Supple, trachea midline. No JVD or lymphadenopathy. + trach CARDIOVASCULAR: Regular rate and rhythm RESPIRATORY: Breath sounds equal bilaterally, diminished at bases. No accessory muscle use. Right pigtail chest tube in place Left pigtail catheter in place GASTROINTESTINAL: Abdomen soft, non-tender, nondistended. +PEG tube in place garcia in place MUSCULOSKELETAL: No cyanosis, or edema. some superficial wounds Neuro: opens eyes to vigorous stimuli occasional sporadic limb movement- - Urinary Catheter Management Straight Cath placed during this visit: yes Urethral indwelling: Yes Reason for continuing: Not indwelling catheter Insertion date: 01/01/18 Insertion time: 16:00 Indwelling Urethral Catheter Cath placed during this visit: yes Reason for continuing: Acute urinary retention Insertion date: 01/01/18 Insertion time: 16:30 Results - Labs CBC & Chem 7: 01/05/18 06:59 01/05/18 06:59 Laboratory Results - last 24 hr 01/05/18 01/06/18 01/06/18 20:17 00:18 05:33 PT INR APTT 47.9 H POC Glucose 261 H 214 H Albumin Prealbumin 01/06/18 01/06/18 01/06/18 05:34 05:34 08:50 PT 14.9 H INR 1.5 APTT 43.5 H POC Glucose 209 H Albumin Prealbumin 01/06/18 01/06/18 01/06/18 12:31 12:31 14:41 PT INR APTT POC Glucose 215 H Albumin 1.3 L Prealbumin 11 L 01/06/18 17:05 PT INR APTT 46.7 H POC Glucose Albumin Prealbumin Microbiology 01/04/18 12:45 Fluid - Pleural fluid Acid Fast Bacilli Smear - Final No acid fast bacilli seen 01/02/18 18:34 Blood - Peripheral Aerobic Blood Culture - Preliminary No growth in 4 days 01/02/18 18:34 Blood - Peripheral Anaerobic Blood Culture - Preliminary No growth in 4 days 01/02/18 18:20 Blood - Peripheral Aerobic Blood Culture - Preliminary No growth in 4 days 01/02/18 18:20 Blood - Peripheral Anaerobic Blood Culture - Preliminary No growth in 4 days 01/04/18 12:45 Fluid - Pleural fluid Gram Stain - Final 01/04/18 12:45 Fluid - Pleural fluid Body Fluid Culture - Preliminary No growth in 48 hours 01/03/18 17:00 Fluid - Pleural fluid Gram Stain - Final 01/03/18 17:00 Fluid - Pleural fluid Body Fluid Culture - Final Assessment and Plan - Assessment (1) Encephalopathy Code(s): G93.40 - Encephalopathy, unspecified Status: Acute (2) CVA (cerebral vascular accident) Code(s): I63.9 - Cerebral infarction, unspecified Status: Acute (3) Wound of sacral region Code(s): S31.000A - Unspecified open wound of lower back and pelvis without penetration into retroperitoneum, initial encounter Status: Acute (4) NSTEMI (non-ST elevated myocardial infarction) Code(s): I21.4 - Non-ST elevation (NSTEMI) myocardial infarction Status: Resolved (5) Anemia Code(s): D64.9 - Anemia, unspecified Status: Acute (6) Respiratory failure with hypoxia and hypercapnia Code(s): J96.91 - Respiratory failure, unspecified with hypoxia; J96.92 - Respiratory failure, unspecified with hypercapnia Status: Resolved (7) Optic neuritis Code(s): H46.9 - Unspecified optic neuritis Status: Resolved - Plan 77 years old male Acute on chronic resp failure s/p trach/PEG Severe sepsis Encephalopathy Healthcare associated pneumonia Large bilateral pleural effusion UTI with ESBL E. coli CVA Anemia s/p NSTEMI Optic neuritis Plan Neuro Impression: Monitor neuro status- unchanged Neurology Dr. Pereira ff patient with encephalopathy, seizures, L ENID infarct. Status post systemic TPA on November 09 Repeat MRI unchanged; EEG with diffuse encephalopathy on aspirin, Plavix, statin Neuro is following, on Ritalin, Keppra IV bid - change to pEG - liquid form Currently on IV heparin. overlap coumadin till INR therapeutic Increase coumadin to 5 mg daily starting adán. give extra dose today. FF INR Neuropsychology is following Optic neuritis. Status post treatment with IV hydrocortisone CV: NSTEMI Echo 10/19: LV systolic function is moderately reduced, EF 40-45%. Cardiology following- Dr. Hernández Monitor HR and BP keep MAP>65mmHg Cardura 2mg daily and Coreg 3.125mg BID on hold will restart coreg 3.125 mg/PEG bid - HR in the 90s- low 100s On Lipitor 80mg qhs Continue aspirin Plavix statins Pulm: chronic respiratory failure S/P tracheostomy on t piece 30$ Bilateral pleural effusion Bronchodilators, ICU vent bundle Pulm toilet, trach care Right-sided pigtail chest tube placed 01/03/2018, 1.35 L output since placement Pleural fluid studies consistent with transudative effusion ff output Dr. Bernal ff S/P PEG Continue tube feeds-Glucerna 1.5 with goal rate 60ml/hr On Pepcid 10mg BID chronic kidney instufficiency Monitor renal function, electrolytes replacement per protocol Cr: 1.5 today ID- multiple ID issues Sacral decub with possible underlying infection, osteomyelitis. - Sacral decub has eschar with possible underlying osteomyelitis. Patient family refused surgical debridement. UTI with prior history of ESBL E. coli Healthcare associated pneumonia with Klebsiella and ESBL E. coli Bialteral Pleural effusion- pigtail catheters in place 12/31 Wound cx: ESBL E.coli - ESBL E. coli +blood cultures on 10/24. Completed course of antibiotics. Urine culture on December 10 with Pseudomonas, pansensitive. Cipro stopped 12/17 -ID -Dr. Mariza Estrada following - on Imipenen Sputum and Urine cx as above Skin Scrotal Edema/ulcerations Has been evaluated by Urology: continue with clean intermittent catheter as needed, scrotal elevation Sacral wound -Seen by Plastic surgery; debridement declined per patient's family -Wound care is following- apply dressings per wound management recommendations Heme: Anemia GI bleed; Status post EGD colonoscopy. GI has signed off, patient with healed rectal ulcers and hemorrhoids. Endo DM, type 2- A1C 9.6 - on Glucerna tube feedings -will start on Levemer 5 units bid -cotninue On SSI for glycemic control GI prophylaxis- on Pepcid DVT prophylaxis- On IV heparin + coumadin overlap- ff INR (5) Anemia Qualifiers: Anemia type: unspecified type Qualified Code(s): D64.9 - Anemia, unspecified
[2018-01-06] MEDS: Methylphenidate HCl 5 MG Tablet PO SCH ×2 (18:29→18:55)
[2018-01-06] MEDS: Collagenase Oint 30 GM Tube TOPICAL SCH (18:54)
[2018-01-06] MEDS: Chlorhexidine 0.12% Oral Kit 15 ML UDC SWISH-SPIT SCH ×2 (18:54→20:35)
[2018-01-07] MEDS: Insulin NovoLIN Regular Correctional Sugar Inj SQ SCH ×2 (00:35→06:28)
[2018-01-07 06:21] LABS: INR 1.5 Ratio; Prothrombin Time 15.6 sec (9.8-11.6)
--- NOTE | 2018-01-07 10:42 | P.PN ---
Subjective Interval history: seen with daughter at bedside patient more awake and alert smiled Physical Exam Vital signs: Vital Signs 01/06/18 12:00 01/06/18 13:45 01/06/18 14:00 Temperature Pulse Rate 104 H 105 H 102 H Respiratory Rate Blood Pressure 113/61 111/55 L Pulse Oximetry 99 100 01/06/18 14:15 01/06/18 14:30 01/06/18 14:45 Temperature Pulse Rate 101 H 104 H 104 H Respiratory Rate Blood Pressure 103/53 L 124/62 108/57 L Pulse Oximetry 100 97 100 01/06/18 15:00 01/06/18 15:15 01/06/18 15:30 Temperature Pulse Rate 104 H 108 H 102 H Respiratory Rate Blood Pressure 114/60 123/66 113/56 L Pulse Oximetry 100 100 98 01/06/18 15:45 01/06/18 16:00 01/06/18 16:15 Temperature Pulse Rate 104 H 101 H 99 H Respiratory Rate Blood Pressure 115/68 105/58 L 104/57 L Pulse Oximetry 96 99 100 01/06/18 16:30 01/06/18 16:45 01/06/18 17:00 Temperature Pulse Rate 99 H 99 H 99 H Respiratory Rate Blood Pressure 103/60 103/62 103/57 L Pulse Oximetry 100 100 100 01/06/18 17:15 01/06/18 17:30 01/06/18 17:45 Temperature Pulse Rate 98 H 98 H 97 H Respiratory Rate Blood Pressure 105/58 L 111/62 100/56 L Pulse Oximetry 100 100 100 01/06/18 18:00 01/06/18 18:15 01/06/18 18:30 Temperature Pulse Rate 97 H 98 H 99 H Respiratory Rate Blood Pressure 110/61 106/61 106/60 Pulse Oximetry 100 100 100 01/06/18 18:45 01/06/18 19:00 01/06/18 19:15 Temperature Pulse Rate 99 H 97 H 96 H Respiratory Rate Blood Pressure 110/58 L 104/59 L 103/59 L Pulse Oximetry 100 100 100 01/06/18 19:30 01/06/18 19:40 01/06/18 19:45 Temperature Pulse Rate 96 H 95 H 95 H Respiratory Rate 16 Blood Pressure 99/57 L 104/54 L Pulse Oximetry 100 100 100 01/06/18 20:00 01/06/18 22:00 01/07/18 00:00 Temperature 99.0 F 99.6 F Pulse Rate 96 H 99 H 101 H Respiratory Rate 16 16 Blood Pressure 100/58 L 114/57 L Pulse Oximetry 100 100 01/07/18 02:00 01/07/18 04:00 01/07/18 05:08 Temperature 99.4 F Pulse Rate 96 H 96 H Respiratory Rate 16 Blood Pressure 119/65 Pulse Oximetry 100 100 01/07/18 06:00 01/07/18 07:00 01/07/18 08:00 Temperature Pulse Rate 94 H 97 H Respiratory Rate 18 Blood Pressure Pulse Oximetry 100 Intake & Output 01/06/18 01/07/18 01/07/18 18:59 06:59 18:59 Intake Total 1168 / 1168 1025 / 1025 Output Total 1181 / 1181 831 / 831 Balance - 194 / 194 Weight 82.3 kg Intake: IV 250 / 250 100 / 100 Heparin/D5W 25,000 U/250 mL 25, 250 / 250 000 unit In 250 ml @ 1,000 UNITS/HR 10 mls/hr IV.CONT TITRATE PRN Rx#:[id number] Primaxin Inj 500 MG In NS Inj 100 / 100 100 ML @ 200 mls/hr IV.SIG Q8H EDE Rx#:[id number] Oral 0 / 0 0 / 0 Tube Feeding 710 / 710 720 / 720 Tube Irrigant 85 / 85 85 / 85 Water Bolus Amount 120 / 120 Other 123 / 123 Output: Emesis Urine Amount (Catheter) 650 / 650 600 / 600 Indwelling Urethral Catheter 650 / 650 600 / 600 Chest Tube Drainage 530 / 530 230 / 230 Left 400 / 400 100 / 100 Right Mid-Axillary Chest 130 / 130 130 / 130 Other: # Voids 0 0 Date of Last Bowel Movement 01/06/18 01/07/18 # Bowel Movements 1 1 # Incontinent Bowel Movements 1 1 Narrative: encephalopathic, eyes opened to call of name, awake and alert smiled , made eye contact, gripped when hand held HEAD: Normocephalic. EYES: No scleral icterus. No injection or drainage. NECK: Supple, trachea midline. No JVD or lymphadenopathy. + trach CARDIOVASCULAR: Regular rate and rhythm without murmurs, gallops, or rubs. RESPIRATORY: Breath sounds equal bilaterally, diminished at bases. No accessory muscle use. Right pigtail chest tube in place Left pigtail catheter in place GASTROINTESTINAL: Abdomen soft, non-tender, nondistended. +PEG tube in place garcia in place MUSCULOSKELETAL: No cyanosis, or edema. some superficail wounds Neuro: opens eyes to painful stimuli. - Urinary Catheter Management Straight Cath placed during this visit: yes Urethral indwelling: Yes Reason for continuing: Not indwelling catheter Insertion date: 01/01/18 Insertion time: 16:00 Indwelling Urethral Catheter Cath placed during this visit: yes Reason for continuing: Acute urinary retention Insertion date: 01/01/18 Insertion time: 16:30 Results - Labs CBC & Chem 7: 01/05/18 06:59 01/05/18 06:59 Laboratory Results - last 24 hr 01/06/18 01/06/18 01/06/18 12:31 12:31 14:41 PT INR APTT POC Glucose 215 H Albumin 1.3 L Prealbumin 11 L 01/06/18 01/06/18 01/07/18 17:05 18:52 00:22 PT INR APTT 46.7 H POC Glucose 263 H 230 H Albumin Prealbumin 01/07/18 01/07/18 01/07/18 04:55 04:55 05:51 PT 15.6 H INR 1.5 APTT 49.9 H POC Glucose 145 H Albumin Prealbumin 01/07/18 08:04 PT INR APTT POC Glucose 135 H Albumin Prealbumin Microbiology 01/04/18 12:45 Fluid - Pleural fluid Gram Stain - Final 01/04/18 12:45 Fluid - Pleural fluid Body Fluid Culture - Final No growth in 72 hours (aerobically and anaerobically ) 01/04/18 12:45 Fluid - Pleural fluid Acid Fast Bacilli Smear - Final No acid fast bacilli seen 01/02/18 18:34 Blood - Peripheral Aerobic Blood Culture - Preliminary No growth in 4 days 01/02/18 18:34 Blood - Peripheral Anaerobic Blood Culture - Preliminary No growth in 4 days 01/02/18 18:20 Blood - Peripheral Aerobic Blood Culture - Preliminary No growth in 4 days 01/02/18 18:20 Blood - Peripheral Anaerobic Blood Culture - Preliminary No growth in 4 days 01/03/18 17:00 Fluid - Pleural fluid Gram Stain - Final 01/03/18 17:00 Fluid - Pleural fluid Body Fluid Culture - Final Assessment and Plan - Assessment (1) Encephalopathy Code(s): G93.40 - Encephalopathy, unspecified Status: Acute (2) CVA (cerebral vascular accident) Code(s): I63.9 - Cerebral infarction, unspecified Status: Acute (3) Wound of sacral region Code(s): S31.000A - Unspecified open wound of lower back and pelvis without penetration into retroperitoneum, initial encounter Status: Acute (4) NSTEMI (non-ST elevated myocardial infarction) Code(s): I21.4 - Non-ST elevation (NSTEMI) myocardial infarction Status: Resolved (5) Anemia Code(s): D64.9 - Anemia, unspecified Status: Acute (6) Respiratory failure with hypoxia and hypercapnia Code(s): J96.91 - Respiratory failure, unspecified with hypoxia; J96.92 - Respiratory failure, unspecified with hypercapnia Status: Resolved (7) Optic neuritis Code(s): H46.9 - Unspecified optic neuritis Status: Resolved - Plan 77 years old male Acute on chronic resp failure s/p trach/PEG Severe sepsis Encephalopathy Healthcare associated pneumonia Large bilateral pleural effusion UTI with ESBL E. coli CVA Anemia s/p NSTEMI Optic neuritis Plan Neuro Impression: Monitor neuro status, spoke to patient's daughter she would like 2nd opinion for neurology Reconsulted neurology and Dr. Peerira has seen patient with encephalopathy, seizures, L ENID infarct. Status post systemic TPA on November 09 Repeat MRI unchanged; EEG with diffuse encephalopathy on aspirin, Plavix, statin Neuro is following, on Ritalin, Keppra Currently on IV heparin, overlap with coumadin. ff INR Neuropsychology is following Optic neuritis. Status post treatment with IV hydrocortisone Encephalopathy persists CV: NSTEMI Echo 10/19: LV systolic function is moderately reduced, EF 40-45%. Cardiology following- Dr. Hernández Monitor HR and BP keep MAP>65mmHg Cardura 2mg daily and Coreg 3.125mg BID on hold On Lipitor 80mg qhs Continue aspirin Plavix statins Pulm: Continue with TP keep sat >92% Trach changed from cuffless to size 6 on 12/31 Bronchodilators, ICU vent bundle Pulm toilet, trach care Large bilateral effusions on CT chest. Right-sided pigtail chest tube placed 01/03/2018, 1.35 L output since placement Pleural fluid studies consistent with transudative effusion ff output GI Continue tube feeds-Glucerna 1.5 with goal rate 60ml/hr On Pepcid 10mg BID : chronic kidney instufficiency Monitor renal function, electrolytes replacement per protocol Cr: 1.5 today ID- mulitple ID issues Sacral decub with possible underlying infection, osteomyelitis. - Sacral decub has eschar with possible underlying osteomyelitis. Patient family refused surgical debridement. UTI with prior history of ESBL E. coli Healthcare associated pneumonia with Klebsiella and ESBL E. coli Bialteral Pleural effusion- pigtail catheters in place 12/31 Wound cx: ESBL E.coli - ESBL E. coli +blood cultures on 10/24. Completed course of antibiotics. Urine culture on December 10 with Pseudomonas, pansensitive. Cipro stopped 12/17 -ID -Dr. Mariza Estrada following - on Imipenen Sputum and Urine cx as above Skin Scrotal Edema/ulcerations Has been evaluated by Urology: continue with clean intermittent catheter as needed, scrotal elevation Sacral wound -Seen by Plastic surgery; debridement declined per patient's family -Wound care is following- apply dressings per wound management recommendations Heme: Anemia GI bleed; Status post EGD colonoscopy. GI has signed off, patient with healed rectal ulcers and hemorrhoids. Monitor CBC, coags- continue IV heparin- overlap with coumadin till INR therapeutic Endo DM type 2 - A1C 9.6 On SSI for glycemic control consider starting scheduled long acting continue on glucerna TF GI prophylaxis- on Pepcid DVT prophylaxis- On IV heparin + coumadin overlap- ff INR- Coumadin up to 5 m daily- ff INR long discussion with patient's daughter - fpc plan- she says it's difficult for helr to take her home- working - SNF- no insurance- patient here cvisiting from [place] when this unfortunate event happened - I told her to eventually that we should make DC plans- if goingnhome we- entry level manager hel[ with DME/hospital bed CM assissting with placment- patient with trach (5) Anemia Qualifiers: Anemia type: unspecified type Qualified Code(s): D64.9 - Anemia, unspecified
--- NOTE | 2018-01-07 10:53 | P.PNPAL ---
Reason for Visit Reason for visit: a. To assist with evaluation and management of symptoms including: pain, dyspnea, encephalopathy b. To assist medical decision maker(s) with: better understanding of current medical conditions; weighing benefits/burdens of medical treatment options; making medical treatment decisions. Subjective Subjective/Interval History: Since last visit pt had large right pleural effusion in which a Right pegtail chest tube was placed. Sputum and urine guldrue grown ESBL. Sputum als grown kebsiellay. Pulmonalogy following patient. Pt asked for 2nd opinion by neurology, Dr. Pereira reconsulted and seen patient. Pt on my visit sleeping, briefly awoke. Pt reported more awake alert and interactive today. family at bedside. Family/Friend Interactions: Spoke with daughter at bedside. Remphasize as before the tremedous challenges pt faces, again let daughter know option of transition to comfort measures is available. They decline at this time. Advance Directives Living Will: Never completed Health Care Surrogate: Never completed Durable Power of Business Performance Analyst: Never completed Objective Vital Signs: Vital Signs 01/06/18 12:00 01/06/18 13:45 01/06/18 14:00 Temperature Pulse Rate 104 H 105 H 102 H Respiratory Rate Blood Pressure 113/61 111/55 L Pulse Oximetry 99 100 01/06/18 14:15 01/06/18 14:30 01/06/18 14:45 Temperature Pulse Rate 101 H 104 H 104 H Respiratory Rate Blood Pressure 103/53 L 124/62 108/57 L Pulse Oximetry 100 97 100 01/06/18 15:00 01/06/18 15:15 01/06/18 15:30 Temperature Pulse Rate 104 H 108 H 102 H Respiratory Rate Blood Pressure 114/60 123/66 113/56 L Pulse Oximetry 100 100 98 01/06/18 15:45 01/06/18 16:00 01/06/18 16:15 Temperature Pulse Rate 104 H 101 H 99 H Respiratory Rate Blood Pressure 115/68 105/58 L 104/57 L Pulse Oximetry 96 99 100 01/06/18 16:30 01/06/18 16:45 01/06/18 17:00 Temperature Pulse Rate 99 H 99 H 99 H Respiratory Rate Blood Pressure 103/60 103/62 103/57 L Pulse Oximetry 100 100 100 01/06/18 17:15 01/06/18 17:30 01/06/18 17:45 Temperature Pulse Rate 98 H 98 H 97 H Respiratory Rate Blood Pressure 105/58 L 111/62 100/56 L Pulse Oximetry 100 100 100 01/06/18 18:00 01/06/18 18:15 01/06/18 18:30 Temperature Pulse Rate 97 H 98 H 99 H Respiratory Rate Blood Pressure 110/61 106/61 106/60 Pulse Oximetry 100 100 100 01/06/18 18:45 01/06/18 19:00 01/06/18 19:15 Temperature Pulse Rate 99 H 97 H 96 H Respiratory Rate Blood Pressure 110/58 L 104/59 L 103/59 L Pulse Oximetry 100 100 100 01/06/18 19:30 01/06/18 19:40 01/06/18 19:45 Temperature Pulse Rate 96 H 95 H 95 H Respiratory Rate 16 Blood Pressure 99/57 L 104/54 L Pulse Oximetry 100 100 100 01/06/18 20:00 01/06/18 22:00 01/07/18 00:00 Temperature 99.0 F 99.6 F Pulse Rate 96 H 99 H 101 H Respiratory Rate 16 16 Blood Pressure 100/58 L 114/57 L Pulse Oximetry 100 100 01/07/18 02:00 01/07/18 04:00 01/07/18 05:08 Temperature 99.4 F Pulse Rate 96 H 96 H Respiratory Rate 16 Blood Pressure 119/65 Pulse Oximetry 100 100 01/07/18 06:00 01/07/18 07:00 01/07/18 08:00 Temperature Pulse Rate 94 H 97 H Respiratory Rate 18 Blood Pressure Pulse Oximetry 100 Intake & Output 01/06/18 01/07/18 01/07/18 18:59 06:59 18:59 Intake Total 1168 / 1168 1025 / 1025 Output Total 1181 / 1181 831 / 831 Balance - 194 / 194 Weight 82.3 kg Intake: IV 250 / 250 100 / 100 Heparin/D5W 25,000 U/250 mL 25, 250 / 250 000 unit In 250 ml @ 1,000 UNITS/HR 10 mls/hr IV.CONT TITRATE PRN Rx#:[id number] Primaxin Inj 500 MG In NS Inj 100 / 100 100 ML @ 200 mls/hr IV.SIG Q8H EDE Rx#:[id number] Oral 0 / 0 0 / 0 Tube Feeding 710 / 710 720 / 720 Tube Irrigant 85 / 85 85 / 85 Water Bolus Amount 120 / 120 Other 123 / 123 Output: Emesis Urine Amount (Catheter) 650 / 650 600 / 600 Indwelling Urethral Catheter 650 / 650 600 / 600 Chest Tube Drainage 530 / 530 230 / 230 Left 400 / 400 100 / 100 Right Mid-Axillary Chest 130 / 130 130 / 130 Other: # Voids 0 0 Date of Last Bowel Movement 01/06/18 01/07/18 # Bowel Movements 1 1 # Incontinent Bowel Movements 1 1 Physical Exam: CONSTITUTIONAL/GENERAL: This is a frail elderly gentleman; opens eyes to loud voice/exam, TUBES/LINES/DRAINS: peripheral IVs; SCDs, [place] catheter; tracheostomy, peg tube SKIN: Upper extremities ecchymotic with some puffy edema ENT: Unable to assess hearing. Nose without bleeding. Trach collar. CARDIOVASCULAR: Irregular rhythm. No audible murmur. RESPIRATORY/CHEST: Symmetric, diminished to auscultation. A couple scattered rhonchi GASTROINTESTINAL: Abdomen soft, round. Bowel sounds present. NEUROLOGICAL: Open eyes, then falls back to sleep. PSYCHIATRIC: Diagnostic Tests Laboratory: Laboratory Results - last 72 hr 01/04/18 01/04/18 01/04/18 12:00 14:01 18:33 WBC RBC Hgb Hct MCV MCH MCHC RDW Plt Count MPV PT INR APTT 33.8 H D Sodium Potassium Chloride Carbon Dioxide Anion Gap BUN Creatinine Estimated GFR POC Glucose 234 H 242 H Random Glucose Calcium Total Bilirubin AST ALT Alkaline Phosphatase Total Protein Albumin Prealbumin 01/04/18 01/05/18 01/05/18 23:28 02:22 05:58 WBC RBC Hgb Hct MCV MCH MCHC RDW Plt Count MPV PT INR APTT 47.0 H D Sodium Potassium Chloride Carbon Dioxide Anion Gap BUN Creatinine Estimated GFR POC Glucose 200 H 195 H Random Glucose Calcium Total Bilirubin AST ALT Alkaline Phosphatase Total Protein Albumin Prealbumin 01/05/18 01/05/18 01/05/18 06:59 06:59 06:59 WBC 11.3 H RBC 2.83 L Hgb 8.2 L Hct 25.6 L MCV 90.6 MCH 29.1 MCHC 32.1 RDW 20.6 H Plt Count 467 H MPV 8.2 PT 15.5 H INR 1.5 APTT Sodium 145 Potassium 4.2 Chloride 109 H Carbon Dioxide 29.5 Anion Gap 7 BUN 47 H Creatinine 1.46 H Estimated GFR 47 L POC Glucose Random Glucose 191 H Calcium 8.0 L Total Bilirubin 0.3 AST 29 ALT 29 Alkaline Phosphatase 123 H Total Protein 6.5 D Albumin 1.4 L Prealbumin 01/05/18 01/05/18 01/05/18 09:33 12:38 14:40 WBC RBC Hgb Hct MCV MCH MCHC RDW Plt Count MPV PT INR APTT 38.6 H 44.5 H Sodium Potassium Chloride Carbon Dioxide Anion Gap BUN Creatinine Estimated GFR POC Glucose 232 H Random Glucose Calcium Total Bilirubin AST ALT Alkaline Phosphatase Total Protein Albumin Prealbumin 01/05/18 01/05/18 01/06/18 17:25 20:17 00:18 WBC RBC Hgb Hct MCV MCH MCHC RDW Plt Count MPV PT INR APTT 47.9 H Sodium Potassium Chloride Carbon Dioxide Anion Gap BUN Creatinine Estimated GFR POC Glucose 262 H 261 H Random Glucose Calcium Total Bilirubin AST ALT Alkaline Phosphatase Total Protein Albumin Prealbumin 01/06/18 01/06/18 01/06/18 05:33 05:34 05:34 WBC RBC Hgb Hct MCV MCH MCHC RDW Plt Count MPV PT 14.9 H INR 1.5 APTT 43.5 H Sodium Potassium Chloride Carbon Dioxide Anion Gap BUN Creatinine Estimated GFR POC Glucose 214 H Random Glucose Calcium Total Bilirubin AST ALT Alkaline Phosphatase Total Protein Albumin Prealbumin 01/06/18 01/06/18 01/06/18 08:50 12:31 12:31 WBC RBC Hgb Hct MCV MCH MCHC RDW Plt Count MPV PT INR APTT Sodium Potassium Chloride Carbon Dioxide Anion Gap BUN Creatinine Estimated GFR POC Glucose 209 H Random Glucose Calcium Total Bilirubin AST ALT Alkaline Phosphatase Total Protein Albumin 1.3 L Prealbumin 11 L 01/06/18 01/06/18 01/06/18 14:41 17:05 18:52 WBC RBC Hgb Hct MCV MCH MCHC RDW Plt Count MPV PT INR APTT 46.7 H Sodium Potassium Chloride Carbon Dioxide Anion Gap BUN Creatinine Estimated GFR POC Glucose 215 H 263 H Random Glucose Calcium Total Bilirubin AST ALT Alkaline Phosphatase Total Protein Albumin Prealbumin 01/07/18 01/07/18 01/07/18 00:22 04:55 04:55 WBC RBC Hgb Hct MCV MCH MCHC RDW Plt Count MPV PT 15.6 H INR 1.5 APTT 49.9 H Sodium Potassium Chloride Carbon Dioxide Anion Gap BUN Creatinine Estimated GFR POC Glucose 230 H Random Glucose Calcium Total Bilirubin AST ALT Alkaline Phosphatase Total Protein Albumin Prealbumin 01/07/18 01/07/18 05:51 08:04 WBC RBC Hgb Hct MCV MCH MCHC RDW Plt Count MPV PT INR APTT Sodium Potassium Chloride Carbon Dioxide Anion Gap BUN Creatinine Estimated GFR POC Glucose 145 H 135 H Random Glucose Calcium Total Bilirubin AST ALT Alkaline Phosphatase Total Protein Albumin Prealbumin Result Diagrams: 01/05/18 06:59 01/05/18 06:59 Microbiology: Microbiology 01/04/18 12:45 Gram Stain - Final Fluid - Pleural fluid Body Fluid Culture - Final No growth in 72 hours (aerobically and anaerobically) 01/04/18 12:45 Acid Fast Bacilli Smear - Final Fluid - Pleural fluid No acid fast bacilli seen 01/02/18 18:34 Aerobic Blood Culture - Preliminary Blood - Peripheral No growth in 4 days Anaerobic Blood Culture - Preliminary No growth in 4 days 01/02/18 18:20 Aerobic Blood Culture - Preliminary Blood - Peripheral No growth in 4 days Anaerobic Blood Culture - Preliminary No growth in 4 days 01/03/18 17:00 Gram Stain - Final Fluid - Pleural fluid Body Fluid Culture - Final 01/03/18 17:00 Acid Fast Bacilli Smear - Final Fluid - Pleural fluid No acid fast bacilli seen 01/03/18 17:00 Fungal Smear - Final Fluid - Pleural fluid No fungal elements seen Imaging: ITS Impressions Head MRI 01/02/18 00:00 CONCLUSION: 1. 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 2. Cerebral atrophy and chronic ischemic small vessel vasculopathy. Chest CT 01/03/18 00:00 CONCLUSION: 1. Large bilateral pleural effusions occupying more than half of the right and left hemithorax. Chest X-Ray 01/05/18 06:00 CONCLUSION: 1. No significant interval change. 2. Stable bilateral chest tubes with mild residual lower lung zone pleural- parenchymal opacities. Procedures: * 11/09/17 - Intubation * 11/11/17 - Extubated * 11/18/17 - Re-intubated * Tracheostomy * PEG tube Assessment and Plan - Disease Oriented Problem List (1) Carotid stenosis (2) Debility (3) Aspiration pneumonia (4) Renal insufficiency (5) Diabetes (6) Optic neuritis (7) Pleural effusion (8) Anemia (9) CVA (cerebral vascular accident) - Symptom Scale (1) Pain 0-10 Scale: Unable to quantify (2) Encephalopathy 0-10 Scale: Unable to quantify (3) Dyspnea 0-10 Scale: Unable to quantify Pertinent Non-Medical Issues: Psychosocial: Patient was born and raised in [place], he lives in [place]. Primary language is German. Patient is , retired, has 2 daughters. Highest level of education is high school. Spiritual: Coptic Restorationist. Legal: No known advanced directives has been completed. Not made available if they were completed. Ethical issues impacting care: Patient incapacitated for medical decision- making. Important Contacts: Family providing son-in-law's contact information: Avtar Ashraf . -pending information Daughter Alexandra -pending contact information Daughter Lanette -not very forthcoming with contact info. State "I am always here." Prognosis: Patient with a complicated prolonged hospitalization to include ESBL E. coli bacteremia, NSTEMI, UTI, aspiration pneumonia, GI bleed, stroke, pleural effusions, seizures. He remains encephalopathic. He is deconditioned and hypoalbuminemic. He is s/p tracheostomy and PEG. He has managed to wean off vent support and bleeding has stopped, but he remains quite encephalopathic and continues to be vulnerable to infections. Famil wants him back on anti- coagulants to protect agains stroke so he now has increased chance of re-bleed. Should he survive the hospitalization, he will be very vulnerable to major setbacks due to his overall frailty and nutritional status. It is unlikely, should he survive the hospitalization, that he will be able to function independently in the future. Code Status: Full Code Plan: ==CODE STATUS: FULL CODE ==HEALTHCARE DECISION-MAKING: . Patient incapacitated for medical decision- making secondary to clinical condition. has indicated she wants her daughters to manage medical decisions especially [place]. does not want to participate in medical decision making. ==GOALS OF CARE: Family continue to express aggressive goals. 01/07/2018: There is no change in the continued aggressive goals of care. Family has tremendous rosetta, sees some changes as evidence of miraculous healing , and continues to expect more improvement. ==SYMPTOMS: = * Debility: Multifactorial secondary to multiple acute on chronic illnesses and prolonged hospitalization, albumin 0.9. Remains critically ill. * Encephalopathy probably multi-factorial -- stroke, infection, medications, prolonged hospitalization, etc. * Pain: Secondary to lines, prolonged bedbound status. No further recommendations at this time. * Dyspnea: Initially managed with vent support. Now tolerating trach collar. == We have minimized comfort meds to allow more wakefulness to assess neurologically and to allow for stimulation. == Disposition -- should patient be able to improve, post-acute care arrangements will likely be difficult given his foreign citizenship and lack of payor source. Should he decline and goals become comfort oriented, he would certainly be a hospice candidate and would be accepted as a linsey case. ==Palliative care will continue to follow to assist with symptom management and to further clarify goals of medical treatment as the clinical course evolves. .
[2018-01-07] MEDS: Methylphenidate HCl 5 MG Tablet PO SCH ×2 (17:36→17:41)
[2018-01-07] MEDS: Hydrocortisone Acetate 25 MG Supp RECTAL SCH ×2 (17:36→22:24)
[2018-01-07] MEDS: Polyethylene Glycol 3350 17 GM Packet PO SCH (17:37)
[2018-01-07] MEDS: Famotidine 20 MG Tablet PO SCH ×2 (17:38→22:31)
[2018-01-07] MEDS: Collagenase Oint 30 GM Tube TOPICAL SCH (17:38)
--- NOTE | 2018-01-07 20:09 | P.PN ---
Subjective Interval history: OPENS EYES NO DISTRESS Physical Exam Vital signs: Vital Signs 01/06/18 22:00 01/07/18 00:00 01/07/18 02:00 Temperature 99.6 F Pulse Rate 99 H 101 H 96 H Respiratory Rate 16 Blood Pressure 114/57 L Pulse Oximetry 100 01/07/18 04:00 01/07/18 05:08 01/07/18 06:00 Temperature 99.4 F Pulse Rate 96 H 94 H Respiratory Rate 16 Blood Pressure 119/65 Pulse Oximetry 100 100 01/07/18 07:00 01/07/18 08:00 01/07/18 10:00 Temperature Pulse Rate 96 H 98 H Respiratory Rate 18 Blood Pressure Pulse Oximetry 100 01/07/18 12:00 01/07/18 13:15 01/07/18 13:30 Temperature Pulse Rate 95 H 96 H 96 H Respiratory Rate Blood Pressure 115/67 124/72 121/68 Pulse Oximetry 100 100 100 01/07/18 13:45 01/07/18 14:00 01/07/18 14:15 Temperature Pulse Rate 96 H 97 H 96 H Respiratory Rate Blood Pressure 115/63 108/58 L 108/56 L Pulse Oximetry 100 97 91 L 01/07/18 14:30 01/07/18 14:45 01/07/18 15:00 Temperature Pulse Rate 95 H 96 H 97 H Respiratory Rate Blood Pressure 110/61 117/55 L 118/64 Pulse Oximetry 100 95 98 01/07/18 15:15 01/07/18 15:30 01/07/18 15:45 Temperature Pulse Rate 97 H 98 H 99 H Respiratory Rate Blood Pressure 122/68 120/68 122/68 Pulse Oximetry 100 100 100 01/07/18 16:00 01/07/18 16:15 01/07/18 16:30 Temperature Pulse Rate 100 H 100 H 98 H Respiratory Rate Blood Pressure 124/68 122/69 122/69 Pulse Oximetry 100 100 100 01/07/18 16:45 01/07/18 17:00 01/07/18 17:15 Temperature Pulse Rate 101 H 100 H 100 H Respiratory Rate Blood Pressure 126/69 111/64 114/60 Pulse Oximetry 100 100 100 01/07/18 17:30 01/07/18 17:45 Temperature Pulse Rate 100 H 100 H Respiratory Rate Blood Pressure 118/65 119/63 Pulse Oximetry 100 100 Intake & Output 01/07/18 01/07/18 01/08/18 06:59 18:59 06:59 Intake Total 1025 / 1025 Output Total 831 / 831 Balance 194 / 194 Weight 82.3 kg Intake: IV 100 / 100 Primaxin Inj 500 MG In NS Inj 100 / 100 100 ML @ 200 mls/hr IV.SIG Q8H EDE Rx#:[id number] Oral 0 / 0 Tube Feeding 720 / 720 Tube Irrigant 85 / 85 Water Bolus Amount 120 / 120 Output: Emesis Urine Amount (Catheter) 600 / 600 Indwelling Urethral Catheter 600 / 600 Chest Tube Drainage 230 / 230 Left 100 / 100 Right Mid-Axillary Chest 130 / 130 Other: # Voids 0 Date of Last Bowel Movement 01/07/18 01/06/18 # Bowel Movements 1 # Incontinent Bowel Movements 1 Narrative: encephalopathic, eyes opened to call of name, awake and alert smiled , made eye contact, gripped when hand held HEAD: Normocephalic. EYES: No scleral icterus. No injection or drainage. NECK: Supple, trachea midline. No JVD or lymphadenopathy. + trach CARDIOVASCULAR: Regular rate and rhythm without murmurs, gallops, or rubs. RESPIRATORY: Breath sounds equal bilaterally, diminished at bases. No accessory muscle use. Right pigtail chest tube in place Left pigtail catheter in place GASTROINTESTINAL: Abdomen soft, non-tender, nondistended. +PEG tube in place garcia in place MUSCULOSKELETAL: No cyanosis, or edema. some superficail wounds Neuro: opens eyes to painful stimuli. - Urinary Catheter Management Straight Cath placed during this visit: yes Urethral indwelling: Yes Reason for continuing: Not indwelling catheter Insertion date: 01/01/18 Insertion time: 16:00 Indwelling Urethral Catheter Cath placed during this visit: yes Reason for continuing: Acute urinary retention Insertion date: 01/01/18 Insertion time: 16:30 Results - Labs CBC & Chem 7: 01/05/18 06:59 01/05/18 06:59 Laboratory Results - last 24 hr 01/07/18 01/07/18 01/07/18 00:22 04:55 04:55 PT 15.6 H INR 1.5 APTT 49.9 H POC Glucose 230 H 01/07/18 01/07/18 05:51 08:04 PT INR APTT POC Glucose 145 H 135 H Microbiology 01/02/18 18:34 Blood - Peripheral Aerobic Blood Culture - Final No growth in 5 days 01/02/18 18:34 Blood - Peripheral Anaerobic Blood Culture - Final No growth in 5 days 01/02/18 18:20 Blood - Peripheral Aerobic Blood Culture - Final No growth in 5 days 01/02/18 18:20 Blood - Peripheral Anaerobic Blood Culture - Final No growth in 5 days 01/04/18 12:45 Fluid - Pleural fluid Gram Stain - Final 01/04/18 12:45 Fluid - Pleural fluid Body Fluid Culture - Final No growth in 72 hours (aerobically and anaerobically ) Assessment and Plan - Plan RESPIRATORY FAILURE cva cad respiratory failure post trach bilateral effusions bilateral chest tubes in place plan o2 as needed PULM TOILET REMOVE CHEST TUBES WHEN POSSIBLE
[2018-01-07] MEDS: Chlorhexidine 0.12% Oral Kit 15 ML UDC SWISH-SPIT SCH (22:24)
[2018-01-08] MEDS: Insulin NovoLIN Regular Correctional Sugar Inj SQ SCH ×6 (00:21→23:42)
[2018-01-08 05:55] LABS: Activated Partial Thrombo Time 40.6 sec (24.3-30.1); INR 1.8 Ratio; Prothrombin Time 17.8 sec (9.8-11.6)
--- NOTE | 2018-01-08 06:57 | P.PNID ---
Subjective Remarks: is a 77-year-old male of descent possibly from [place] with past medical history significant for hypertension and diabetes. Patient presented to the emergency department with complaints of 10 day history of blurry vision in his right eye with associated pain to the right rastafari. History of cataract surgery 6 weeks ago. His symptoms got progressively worse over the last 10 days so he decided to come in. He complains of blurry vision, tenderness to palpation of his right rastafari as well as pain in brushing his hair. Patient reports no jaw claudication normalities or unintentional weight loss. He went to [facility] and saw supervisor feed house Dr. Zimmerman who sent him to the ED to rule out orbital pseudotumor or temporal arteritis. MRI of the orbits show edema involving the right optic nerve. An MRA of the brain showed severe diffuse atherosclerotic disease. Inflammatory markers were ESR of 12, CRP of 0.51. Patient receives Solu-Medrol to 50 mg IV in the emergency room. Patient reportedly was doing okay and observed in the ICU. Patient was seen by housekeeping supervisor Dr. Diaz who is thinking of doing a temporal artery biopsy and thinks this possibly could be giant cell arteritis. And recommended continuing IV Solu-Medrol. Overnight on October 24, 2017 patient developed signs and symptoms suggestive of sepsis and a sepsis alert was called. The 19 hospitalists ordered sepsis workup including blood and urine cultures. The blood cultures are positive for ESBL E. coli and urine cultures are positive for gram-negative. Patient has been started on empiric Zosyn IV. Blood cultures have now been reported as ESBL based on Klaus gene testing. Clinically patient appears to be deteriorating on Zosyn IV as well making this more likely an ESBL E. coli infection. Infectious diseases initially followed for E. coli ESBL bacteremia and UTI. His hospital course was complicated by Vent dependence, Pneumonia and PSAE UTI. Patient had a fever on 12/15/2017 he had blood cultures done which are negative. Other workup negative so far. ID reconsult by for ESBL in Sacral cultures, GNR UTI and Fevers. Delayed entry for patient seen yday 01/07/18 at 11 am Overnight events reviewed with RN. s/p thoracentesis yday with 900 cc fluid serous but yellow tinged fluid drained. No diarrhea No rash Opens eyes spontaneously but does not follow commands. Sacral decub with black eschar but no surrounding erythema noted. Antibiotics: Imipenem IV Lines: Lines ok Past Medical History: reviewed Allergies/Adverse Reactions: Allergies No Known Allergies Allergy (Verified 12/25/17 11:22) Objective Vital Signs Vitals reviewed from 01/08/2018. Not on pressors. No fevers. 01/02/18 18:34 Blood - Peripheral Aerobic Blood Culture - Final No growth in 5 days 01/02/18 18:34 Blood - Peripheral Anaerobic Blood Culture - Final No growth in 5 days 01/02/18 18:20 Blood - Peripheral Aerobic Blood Culture - Final No growth in 5 days 01/02/18 18:20 Blood - Peripheral Anaerobic Blood Culture - Final No growth in 5 days 01/04/18 12:45 Fluid - Pleural fluid Gram Stain - Final 01/04/18 12:45 Fluid - Pleural fluid Body Fluid Culture - Final No growth in 72 hours (aerobically and anaerobically ) 01/04/18 12:45 Fluid - Pleural fluid Acid Fast Bacilli Smear - Final No acid fast bacilli seen 01/04/18 12:45 Fluid - Pleural fluid Mycobacterial Culture - Pending 01/03/18 17:00 Fluid - Pleural fluid Gram Stain - Final 01/03/18 17:00 Fluid - Pleural fluid Body Fluid Culture - Final 01/03/18 17:00 Fluid - Pleural fluid Acid Fast Bacilli Smear - Final No acid fast bacilli seen 01/03/18 17:00 Fluid - Pleural fluid Mycobacterial Culture - Pending Lab - Chemistry Results 01/06/18 01/06/18 01/06/18 08:50 12:31 12:31 POC Glucose 209 H Albumin 1.3 L Prealbumin 11 L Procalcitonin 01/06/18 01/06/18 01/07/18 14:41 18:52 00:22 POC Glucose 215 H 263 H 230 H Albumin Prealbumin Procalcitonin 01/07/18 01/07/18 01/07/18 05:51 08:04 14:12 POC Glucose 145 H 135 H Albumin Prealbumin Procalcitonin 0.30 01/08/18 01/08/18 00:14 06:34 POC Glucose 276 H 180 H Albumin Prealbumin Procalcitonin Imaging: ITS Impressions Head MRI 01/02/18 00:00 CONCLUSION: 1. 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 2. Cerebral atrophy and chronic ischemic small vessel vasculopathy. Chest CT 01/03/18 00:00 CONCLUSION: 1. Large bilateral pleural effusions occupying more than half of the right and left hemithorax. Chest X-Ray 01/05/18 06:00 CONCLUSION: 1. No significant interval change. 2. Stable bilateral chest tubes with mild residual lower lung zone pleural- parenchymal opacities. Physical Exam: GENERAL: Patient is 77 yo on ventilator SKIN: Warm and dry. HEAD: Normocephalic. EYES: No scleral icterus. No injection or drainage. NECK: Supple, trachea midline. + trach CARDIOVASCULAR: HS audible. RESPIRATORY: Breath sounds equal bilaterally. No accessory muscle use. GASTROINTESTINAL: Abdomen soft, non-tender, nondistended. +PEG tube in place MUSCULOSKELETAL: No cyanosis, or edema. Neuro: Opens eyes spontaneously, does not track, follows simple commands Sacral decub area with black eschar noted but no surrounding erythema. IV line sites with no e.o infection. Assessment and Plan - Plan Sacral decub with possible underlying infection, osteomyelitis. Prior h/o ESBL E.coli on 10/24/2017. Possible HCAP GNR UTI ? ESBL given h/o ESBL. 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 Encephalopathy: strokes in hospital, optic neuritis on presentation. Recs: Continue Imipenem IV Follow thoracentesis cultures Follow clinically. Sacral decub has eschar with possible underlying osteomyelitis. Patient family refused surgical debridement. Dw patients daughter. Will check Procalcitonin and decide if Imipenem can be deescalated. covering for me this weekend. Dr.A. Jalloh who knows patient will resume care on wednesday01/10/18.
--- NOTE | 2018-01-08 08:44 | P.PN ---
Subjective Interval history: eyes open, i think he smiled tolerating tube feedings Physical Exam Vital signs: Vital Signs 01/07/18 10:00 01/07/18 12:00 01/07/18 13:15 Temperature Pulse Rate 98 H 95 H 96 H Respiratory Rate Blood Pressure 115/67 124/72 Pulse Oximetry 100 100 01/07/18 13:30 01/07/18 13:45 01/07/18 14:00 Temperature Pulse Rate 96 H 96 H 97 H Respiratory Rate Blood Pressure 121/68 115/63 108/58 L Pulse Oximetry 100 100 97 01/07/18 14:15 01/07/18 14:30 01/07/18 14:45 Temperature Pulse Rate 96 H 95 H 96 H Respiratory Rate Blood Pressure 108/56 L 110/61 117/55 L Pulse Oximetry 91 L 100 95 01/07/18 15:00 01/07/18 15:15 01/07/18 15:30 Temperature Pulse Rate 97 H 97 H 98 H Respiratory Rate Blood Pressure 118/64 122/68 120/68 Pulse Oximetry 98 100 100 01/07/18 15:45 01/07/18 16:00 01/07/18 16:15 Temperature Pulse Rate 99 H 100 H 100 H Respiratory Rate Blood Pressure 122/68 124/68 122/69 Pulse Oximetry 100 100 100 01/07/18 16:30 01/07/18 16:45 01/07/18 17:00 Temperature Pulse Rate 98 H 101 H 100 H Respiratory Rate Blood Pressure 122/69 126/69 111/64 Pulse Oximetry 100 100 100 01/07/18 17:15 01/07/18 17:30 01/07/18 17:45 Temperature Pulse Rate 100 H 100 H 100 H Respiratory Rate Blood Pressure 114/60 118/65 119/63 Pulse Oximetry 100 100 100 01/07/18 18:00 01/07/18 20:00 01/07/18 20:17 Temperature 98.2 F Pulse Rate 100 H 100 H 99 H Respiratory Rate 22 20 Blood Pressure 113/63 Pulse Oximetry 100 01/07/18 22:00 01/08/18 00:00 01/08/18 02:00 Temperature 98.3 F Pulse Rate 99 H 99 H 100 H Respiratory Rate 20 Blood Pressure 115/65 Pulse Oximetry 100 01/08/18 04:00 01/08/18 04:44 01/08/18 06:00 Temperature 98.2 F Pulse Rate 96 H 101 H Respiratory Rate 22 Blood Pressure 108/63 Pulse Oximetry 100 100 Intake & Output 01/07/18 01/08/18 01/08/18 18:59 06:59 18:59 Intake Total 0 / 0 275 / 275 Output Total 1450 / 1450 921 / 921 Balance -1450 / -1450 -646 / -646 Weight 82 kg Intake: IV 275 / 275 Heparin/D5W 25,000 U/250 mL 25, 175 / 175 000 unit In 250 ml @ 1,000 UNITS/HR 10 mls/hr IV.CONT TITRATE PRN Rx#:[id number] Primaxin Inj 500 MG In NS Inj 100 / 100 100 ML @ 200 mls/hr IV.SIG Q8H EDE Rx#:[id number] Oral 0 / 0 0 / 0 Tube Feeding 0 / 0 Output: Urine 1000 / 1000 Emesis 1 / Urine Amount (Catheter) 750 / 750 Indwelling Urethral Catheter 750 / 750 Chest Tube Drainage 450 / 450 170 / 170 Left 150 / 150 100 / 100 Right Mid-Axillary Chest 300 / 300 70 / 70 Other: # Voids 0 0 # Incontinent Voids 0 0 Date of Last Bowel Movement 01/06/18 01/08/18 # Bowel Movements 1 1 # Incontinent Bowel Movements 1 1 Narrative: eyes opened to call of name, awake and alert smiled , made eye contact, HEAD: Normocephalic. EYES: No scleral icterus. No injection or drainage. NECK: Supple, trachea midline. No JVD or lymphadenopathy. + trach in place CARDIOVASCULAR: Regular rate and rhythm without murmurs, gallops, or rubs. RESPIRATORY: Breath sounds equal bilaterally, diminished at bases. No accessory muscle use. Right pigtail chest tube in place Left pigtail catheter in place back- decubitus ulcer- dressing in place GASTROINTESTINAL: Abdomen soft, non-tender, nondistended. +PEG tube in place garcia in place MUSCULOSKELETAL: No cyanosis, or edema. some superficail wounds Neuro: opened eyes to call of his name, unchange status - Urinary Catheter Management Straight Cath placed during this visit: yes Urethral indwelling: Yes Reason for continuing: Not indwelling catheter Insertion date: 01/01/18 Insertion time: 16:00 Indwelling Urethral Catheter Cath placed during this visit: yes Reason for continuing: Acute urinary retention Insertion date: 01/01/18 Insertion time: 16:30 Results - Labs CBC & Chem 7: 01/05/18 06:59 01/05/18 06:59 Laboratory Results - last 24 hr 01/07/18 01/08/18 01/08/18 14:12 00:14 04:50 PT 17.8 H INR 1.8 APTT 40.6 H POC Glucose 276 H Procalcitonin 0.30 01/08/18 06:34 PT INR APTT POC Glucose 180 H Procalcitonin Microbiology 01/02/18 18:34 Blood - Peripheral Aerobic Blood Culture - Final No growth in 5 days 01/02/18 18:34 Blood - Peripheral Anaerobic Blood Culture - Final No growth in 5 days 01/02/18 18:20 Blood - Peripheral Aerobic Blood Culture - Final No growth in 5 days 01/02/18 18:20 Blood - Peripheral Anaerobic Blood Culture - Final No growth in 5 days 01/04/18 12:45 Fluid - Pleural fluid Gram Stain - Final 01/04/18 12:45 Fluid - Pleural fluid Body Fluid Culture - Final No growth in 72 hours (aerobically and anaerobically ) Assessment and Plan - Assessment (1) Encephalopathy Code(s): G93.40 - Encephalopathy, unspecified Status: Acute (2) CVA (cerebral vascular accident) Code(s): I63.9 - Cerebral infarction, unspecified Status: Acute (3) Wound of sacral region Code(s): S31.000A - Unspecified open wound of lower back and pelvis without penetration into retroperitoneum, initial encounter Status: Acute (4) NSTEMI (non-ST elevated myocardial infarction) Code(s): I21.4 - Non-ST elevation (NSTEMI) myocardial infarction Status: Resolved (5) Anemia Code(s): D64.9 - Anemia, unspecified Status: Acute (6) Respiratory failure with hypoxia and hypercapnia Code(s): J96.91 - Respiratory failure, unspecified with hypoxia; J96.92 - Respiratory failure, unspecified with hypercapnia Status: Resolved (7) Optic neuritis Code(s): H46.9 - Unspecified optic neuritis Status: Resolved - Plan 77 years old male Acute on chronic resp failure s/p trach/PEG CVA Anemia s/p NSTEMI Optic neuritis Plan Neuro Impression: Monitor neuro status, spoke to patient's daughter she would like 2nd opinion for neurology Reconsulted neurology and Dr. Pereira has seen patient with encephalopathy, seizures, L ENID infarct. Status post systemic TPA on November 09 Repeat MRI unchanged; EEG with diffuse encephalopathy on aspirin, Plavix, statin Neuro is following, on Ritalin, Crystal Currently on IV heparin, overlap with coumadin. ff INR Neuropsychology is following Optic neuritis. Status post treatment with IV hydrocortisone Encephalopathy persists ID- mulitple ID issues Sacral decub with possible underlying infection, osteomyelitis. - Sacral decub has eschar with possible underlying osteomyelitis. Patient family refused surgical debridement. UTI with prior history of ESBL E. coli Healthcare associated pneumonia with Klebsiella and ESBL E. coli Bialteral Pleural effusion- pigtail catheters in place 12/31 Wound cx: ESBL E.coli - ESBL E. coli +blood cultures on 10/24. Completed course of antibiotics. Urine culture on December 10 with Pseudomonas, pansensitive. Cipro stopped 12/17 -ID -Dr. Mariza Estrada following - on Imipenen Skin Scrotal Edema/ulcerations Has been evaluated by Urology: continue with clean intermittent catheter as needed, scrotal elevation Sacral wound -Seen by Plastic surgery; debridement declined per patient's family -Wound care is following- apply dressings per wound management recommendations CV: NSTEMI Echo 10/19: LV systolic function is moderately reduced, EF 40-45%. Cardiology following- Dr. Hernández Monitor HR and BP keep MAP>65mmHg Cardura 2mg daily and Coreg 3.125mg BID on hold On Lipitor 80mg qhs Continue aspirin Plavix statins Pulm: Continue with TP keep sat >92% Trach changed from cuffless to size 6 on 12/31 Bronchodilators, ICU vent bundle Pulm toilet, trach care Large bilateral effusions on CT chest. Right-sided pigtail chest tube placed 01/03/2018, 1.35 L output since placement Pleural fluid studies consistent with transudative effusion ff output GI Continue tube feeds-Glucerna 1.5 with goal rate 60ml/hr On Pepcid 10mg BID : chronic kidney instufficiency Monitor renal function, electrolytes replacement per protocol Cr: 1.5 today Heme: Anemia GI bleed; Status post EGD colonoscopy. GI has signed off, patient with healed rectal ulcers and hemorrhoids. Monitor CBC, coags- continue IV heparin- overlap with coumadin- started 5 mg daily give extra 2.5 today ff INR Endo DM type 2 - A1C 9.6 On SSI for glycemic control consider starting scheduled long acting continue on glucerna TF GI prophylaxis- on Pepcid DVT prophylaxis- On IV heparin + coumadin overlap- ff INR- Coumadin up to 5 m daily- ff INR 01/07 long discussion with patient's daughter - buttermaker plan- she says it's difficult for helr to take her home- working - SNF- no insurance- patient here cvisiting from [place] when this unfortunate event happened - I told her to eventually that we should make DC plans- if goingnhome we- director internal audit hel[ with DME/hospital bed CM assissting with placment- patient with trach (5) Anemia Qualifiers: Anemia type: unspecified type Qualified Code(s): D64.9 - Anemia, unspecified
[2018-01-08] MEDS: Insulin Detemir Inj 1,000 UNIT/10 ML Vial SQ SCH ×2 (09:28→20:08)
[2018-01-08] MEDS: Chlorhexidine 0.12% Oral Kit 15 ML UDC SWISH-SPIT SCH ×2 (09:28→20:09)
[2018-01-08] MEDS: Methylphenidate HCl 5 MG Tablet PO SCH ×2 (09:28→14:46)
[2018-01-08] MEDS: Hydrocortisone Acetate 25 MG Supp RECTAL SCH ×2 (09:28→20:10)
[2018-01-08] MEDS: Famotidine 20 MG Tablet PO SCH ×2 (09:29→20:07)
[2018-01-08] MEDS: Collagenase Oint 30 GM Tube TOPICAL SCH (09:29)
[2018-01-08] MEDS: Polyethylene Glycol 3350 17 GM Packet PO SCH (09:29)
--- NOTE | 2018-01-08 16:08 | P.PN ---
Subjective Interval history: OPENS EYES NO DISTRESS Physical Exam Vital signs: Vital Signs 01/07/18 16:15 01/07/18 16:30 01/07/18 16:45 Temperature Pulse Rate 100 H 98 H 101 H Respiratory Rate Blood Pressure 122/69 122/69 126/69 Pulse Oximetry 100 100 100 01/07/18 17:00 01/07/18 17:15 01/07/18 17:30 Temperature Pulse Rate 100 H 100 H 100 H Respiratory Rate Blood Pressure 111/64 114/60 118/65 Pulse Oximetry 100 100 100 01/07/18 17:45 01/07/18 18:00 01/07/18 20:00 Temperature 98.2 F Pulse Rate 100 H 100 H 100 H Respiratory Rate 22 Blood Pressure 119/63 113/63 Pulse Oximetry 100 100 01/07/18 20:17 01/07/18 22:00 01/08/18 00:00 Temperature 98.3 F Pulse Rate 99 H 99 H 99 H Respiratory Rate 20 20 Blood Pressure 115/65 Pulse Oximetry 100 01/08/18 02:00 01/08/18 04:00 01/08/18 04:44 Temperature 98.2 F Pulse Rate 100 H 96 H Respiratory Rate 22 Blood Pressure 108/63 Pulse Oximetry 100 100 01/08/18 06:00 01/08/18 08:00 01/08/18 09:38 Temperature 98.4 F Pulse Rate 101 H 102 H 99 H Respiratory Rate 16 20 Blood Pressure 116/62 Pulse Oximetry 95 100 01/08/18 10:00 01/08/18 12:00 01/08/18 14:00 Temperature 98.2 F Pulse Rate 96 H 102 H 101 H Respiratory Rate 18 Blood Pressure 112/60 Pulse Oximetry 96 01/08/18 16:00 Temperature Pulse Rate 103 H Respiratory Rate Blood Pressure Pulse Oximetry Intake & Output 01/07/18 01/08/18 01/08/18 18:59 06:59 18:59 Intake Total 0 / 0 375 / 375 100 / 100 Output Total 1450 / 1450 921 / 921 Balance -1450 / -1450 -546 / -546 100 / 100 Weight 82 kg Intake: IV 375 / 375 100 / 100 Heparin/D5W 25,000 U/250 mL 25, 175 / 175 000 unit In 250 ml @ 1,000 UNITS/HR 10 mls/hr IV.CONT TITRATE PRN Rx#:[id number] Primaxin Inj 500 MG In NS Inj 200 / 200 100 / 100 100 ML @ 200 mls/hr IV.SIG Q8H EDE Rx#:[id number] Oral 0 / 0 0 / 0 Tube Feeding 0 / 0 Output: Urine 1000 / 1000 Emesis 1 / 1 Urine Amount (Catheter) 750 / 750 Indwelling Urethral Catheter 750 / 750 Chest Tube Drainage 450 / 450 170 / 170 Left 150 / 150 100 / 100 Right Mid-Axillary Chest 300 / 300 70 / 70 Other: # Voids 0 0 # Incontinent Voids 0 0 Date of Last Bowel Movement 01/06/18 01/08/18 01/08/18 # Bowel Movements 1 1 # Incontinent Bowel Movements 1 1 Narrative: encephalopathic, eyes opened to call of name, awake and alert smiled , made eye contact, gripped when hand held HEAD: Normocephalic. EYES: No scleral icterus. No injection or drainage. NECK: Supple, trachea midline. No JVD or lymphadenopathy. + trach CARDIOVASCULAR: Regular rate and rhythm without murmurs, gallops, or rubs. RESPIRATORY: Breath sounds equal bilaterally, diminished at bases. No accessory muscle use. Right pigtail chest tube in place Left pigtail catheter in place GASTROINTESTINAL: Abdomen soft, non-tender, nondistended. +PEG tube in place garcia in place MUSCULOSKELETAL: No cyanosis, or edema. some superficail wounds Neuro: opens eyes to painful stimuli. - Urinary Catheter Management Straight Cath placed during this visit: yes Urethral indwelling: Yes Reason for continuing: Not indwelling catheter Insertion date: 01/01/18 Insertion time: 16:00 Indwelling Urethral Catheter Cath placed during this visit: yes Reason for continuing: Acute urinary retention Insertion date: 01/01/18 Insertion time: 16:30 Results - Labs CBC & Chem 7: 01/05/18 06:59 01/05/18 06:59 Laboratory Results - last 24 hr 01/07/18 01/08/18 01/08/18 14:12 00:14 04:50 PT 17.8 H INR 1.8 APTT 40.6 H POC Glucose 276 H Procalcitonin 0.30 01/08/18 01/08/18 06:34 11:53 PT INR APTT POC Glucose 180 H 149 H Procalcitonin Assessment and Plan - Plan RESPIRATORY FAILURE cva cad respiratory failure post trach bilateral effusions bilateral chest tubes in place plan o2 as needed PULM TOILET REMOVE CHEST TUBES WHEN POSSIBLE
[2018-01-08] MEDS: Heparin Drip 25,000 UNIT/250 ML BAG IV.CONT PRN (20:03)
[2018-01-09] MEDS: Acetaminophen 325 MG Tablet PO PRN ×2 (04:27→10:00)
[2018-01-09] MEDS: Insulin NovoLIN Regular Correctional Sugar Inj SQ SCH ×3 (05:58→17:48)
[2018-01-09 06:38] LABS: Activated Partial Thrombo Time 55.2 sec (24.3-30.1); INR 2.2 Ratio; Prothrombin Time 22.1 sec (9.8-11.6)
[2018-01-09] MEDS: Methylphenidate HCl 5 MG Tablet PO SCH ×2 (08:48→12:25)
[2018-01-09] MEDS: Hydrocortisone Acetate 25 MG Supp RECTAL SCH ×2 (08:48→21:01)
[2018-01-09] MEDS: Collagenase Oint 30 GM Tube TOPICAL SCH (08:49)
[2018-01-09] MEDS: Polyethylene Glycol 3350 17 GM Packet PO SCH (08:49)
[2018-01-09] MEDS: Insulin Detemir Inj 1,000 UNIT/10 ML Vial SQ SCH ×2 (08:49→21:02)
[2018-01-09] MEDS: Famotidine 20 MG Tablet PO SCH ×2 (08:49→21:03)
[2018-01-09] MEDS: Chlorhexidine 0.12% Oral Kit 15 ML UDC SWISH-SPIT SCH ×2 (08:56→21:01)
[2018-01-09 11:28] LABS: Bacteria,Urine Occasional /hpf; Bilirubin,Urine Negative (Negative); Clarity,Urine Hazy (Clear); Color,Urine Yellow (Yellw/Straw); Glucose,Urine (UA) 50 mg/dL (Negative); Leukocyte Esterase,Urine Large (Negative); Mucus,Urine Few /lpf (Occasional); Nitrite,Urine Negative (Negative); Specific Gravity,Urine 1.015 (1.002-1.035); Squamous Epithelial Cell,Urine <1 /hpf (0-5)
[2018-01-09 12:57] LABS: Baso # (Auto) 0.1 th/mm3 (0.0-0.2); Baso % (Auto) 0.6 % (0.0-2.0); Eos % (Auto) 0.3 % (0.0-4.0); Hematocrit 28.6 % (39.0-51.0); Hemoglobin 8.8 gm/dL (13.0-17.0); Lymph # (Auto) 3.5 th/mm3 (1.0-4.8); Lymph % (Auto) 20.3 % (9.0-44.0); Mean Corpuscular Hemoglobin 28.2 pg (27.0-34.0); Mean Corpuscular Volume 91.5 fL (80.0-100.0); Mean Platelet Volume 8.8 fL (7.0-11.0); Mono # (Auto) 1.1 th/mm3 (0.0-0.9); Mono % (Auto) 6.7 % (0.0-8.0); Neut # (Auto) 12.3 th/mm3 (1.8-7.7); Neut % (Auto) 72.1 % (16.0-70.0); Platelet Count 418 th/mm3 (150-450); Red Blood Count 3.12 mil/mm3 (4.50-5.90); Red Cell Distribution Width 20.1 % (11.6-17.2)
--- NOTE | 2018-01-09 13:01 | P.PN ---
Subjective Interval history: T max 102 this am minimal secretion' Physical Exam Vital signs: Vital Signs 01/08/18 14:00 01/08/18 16:00 01/08/18 18:00 Temperature 98.1 F Pulse Rate 101 H 102 H 111 H Respiratory Rate 15 Blood Pressure 112/61 Pulse Oximetry 98 01/08/18 19:48 01/08/18 20:00 01/08/18 22:00 Temperature 100.1 F H Pulse Rate 113 H 112 H 114 H Respiratory Rate 20 16 Blood Pressure 131/79 Pulse Oximetry 100 100 01/09/18 00:00 01/09/18 02:00 01/09/18 03:30 Temperature 100.2 F H Pulse Rate 124 H 133 H Respiratory Rate 18 Blood Pressure 119/66 Pulse Oximetry 99 100 01/09/18 04:00 01/09/18 05:30 01/09/18 06:00 Temperature 102.8 F H Pulse Rate 125 H 118 H Respiratory Rate 18 Blood Pressure 117/71 Pulse Oximetry 94 L 95 01/09/18 08:00 01/09/18 08:41 01/09/18 10:00 Temperature 102.1 F H Pulse Rate 123 H 129 H Respiratory Rate 19 Blood Pressure 115/63 Pulse Oximetry 98 100 01/09/18 10:30 01/09/18 12:00 Temperature 99.8 F H 99 F Pulse Rate 119 H Respiratory Rate 16 Blood Pressure 115/65 Pulse Oximetry 96 Intake & Output 01/08/18 01/09/18 01/09/18 18:59 06:59 18:59 Intake Total 620 / 620 1153 / 1153 100 / 100 Output Total 800 / 800 1160 / 1160 Balance -180 / -180 -7 / -7 100 / 100 Weight 80 kg Intake: IV 200 / 200 277 / 277 100 / 100 Heparin/D5W 25,000 U/250 mL 25, 177 / 177 000 unit In 250 ml @ 1,000 UNITS/HR 10 mls/hr IV.CONT TITRATE PRN Rx#:[id number] Primaxin Inj 500 MG In NS Inj 200 / 200 100 / 100 100 / 100 100 ML @ 200 mls/hr IV.SIG Q8H EDE Rx#:[id number] Tube Feeding 420 / 420 756 / 756 Tube Irrigant 120 / 120 Output: Urine 750 / 750 Urine Amount (Catheter) 800 / 800 Indwelling Urethral Catheter 800 / 800 Chest Tube Drainage 410 / 410 Left 150 / 150 Right Mid-Axillary Chest 260 / 260 Other: Date of Last Bowel Movement 01/08/18 01/09/18 01/09/18 # Bowel Movements 1 1 - Urinary Catheter Management Straight Cath placed during this visit: yes Urethral indwelling: Yes Reason for continuing: Severe pressure ulcer/wound Insertion date: 01/09/18 Insertion time: 08:00 Indwelling Urethral Catheter Cath placed during this visit: yes Reason for continuing: Acute urinary retention Insertion date: 01/01/18 Insertion time: 16:30 Results - Labs CBC & Chem 7: 01/09/18 12:15 01/05/18 06:59 Laboratory Results - last 24 hr 01/08/18 01/08/18 01/09/18 17:04 23:31 05:12 PT 22.1 H INR 2.2 APTT 55.2 H D POC Glucose 171 H 236 H Urine Color Urine Clarity Urine pH Ur Specific [place] Urine Protein Urine Glucose (UA) Urine Ketones Urine Occult Blood Urine Nitrate Urine Bilirubin Urine Urobilinogen Ur Leukocyte Esterase Urine RBC Urine WBC Urine WBC Clumps Ur Squamous Epith Cells Urine Bacteria Urine Mucus Micro UA Comment Urine Culture Comments 01/09/18 01/09/18 01/09/18 05:45 10:25 12:00 PT INR APTT POC Glucose 267 H 243 H Urine Color Yellow Urine Clarity Hazy H Urine pH 7.0 Ur Specific [place] 1.015 Urine Protein 100 H Urine Glucose (UA) 50 Urine Ketones Trace Urine Occult Blood Negative Urine Nitrate Negative Urine Bilirubin Negative Urine Urobilinogen 2.0 H Ur Leukocyte Esterase Large H Urine RBC 6 H Urine WBC 71 H Urine WBC Clumps Rare H Ur Squamous Epith Cells <1 Urine Bacteria Occasional H Urine Mucus Few H Micro UA Comment Cath-culture ind Urine Culture Comments Cath-cult indicated Assessment and Plan - Assessment (1) Encephalopathy Code(s): G93.40 - Encephalopathy, unspecified Status: Acute (2) CVA (cerebral vascular accident) Code(s): I63.9 - Cerebral infarction, unspecified Status: Acute (3) Wound of sacral region Code(s): S31.000A - Unspecified open wound of lower back and pelvis without penetration into retroperitoneum, initial encounter Status: Acute (4) NSTEMI (non-ST elevated myocardial infarction) Code(s): I21.4 - Non-ST elevation (NSTEMI) myocardial infarction Status: Resolved (5) Anemia Code(s): D64.9 - Anemia, unspecified Status: Acute (6) Respiratory failure with hypoxia and hypercapnia Code(s): J96.91 - Respiratory failure, unspecified with hypoxia; J96.92 - Respiratory failure, unspecified with hypercapnia Status: Resolved (7) Optic neuritis Code(s): H46.9 - Unspecified optic neuritis Status: Resolved - Plan notes placed 6:45 pm 77 years old male Acute on chronic resp failure s/p trach/PEG CVA Anemia s/p NSTEMI Optic neuritis - Monitor neuro status, spoke to patient's daughter she would like 2nd opinion for neurology - neurology and Dr. Pereira has seen patient with encephalopathy, seizures, L ENID infarct. Status post systemic TPA on November 09 Repeat MRI unchanged; EEG with diffuse encephalopathy on aspirin, Plavix, statin on Ritalin, Keppra Currently on IV heparin, overlap with coumadin. ff INR 2.2 today finally on 5 mg coumadin if INR therapeutic 2 days in a row tomorrow- DC heparin drip Neuropsychology is following Optic neuritis. Status post treatment with IV hydrocortisone Encephalopathy persists New FEver- t max 102.this am, Leukoctyosis 17,000 Recurrent UTI - WBC in urine 72, large leukocyte esterase (specimen is from the new garcia) Prior history of ESBL E. coli- Healthcare associated pneumonia with Klebsiella and ESBL E. coli Bialteral Pleural effusion- pigtail catheters in place - change garcia- catheter today 01/09 - cultures from pleural fluid- no growth x 72 hours -repeat blood cultures x 2 today- ff - ff repat urine cultures - ESBL E. coli +blood cultures on 10/24. Completed course of antibiotics. - Urine culture on December 10 with Pseudomonas, pansensitive. Cipro stopped 12/17 -ID -Dr. Mariza Estrada following -currently on Imipenen d/w Dr. Moncada- covering ID- we will Add Vancomycin to regimen - order for 1 gm IV x 1 now and consult pharmacy - d/w pharmacist - BMP in am - repeat CBC in am Sacral decub with possible underlying infection, osteomyelitis. - Sacral decub has eschar with possible underlying osteomyelitis. Patient family refused surgical debridement. 12/31 Wound cx: ESBL E.coli Skin Scrotal Edema/ulcerations Has been evaluated by Urology: continue with clean intermittent catheter as needed, scrotal elevation Sacral wound -Seen by Plastic surgery; debridement declined per patient's family -Wound care is following- apply dressings per wound management recommendations CV: NSTEMI Echo 10/19: LV systolic function is moderately reduced, EF 40-45%. Cardiology following- Dr. Hernández Monitor HR and BP keep MAP>65mmHg Cardura 2mg daily and Coreg 3.125mg BID on hold On Lipitor 80mg qhs Continue aspirin Plavix statins Pulm: Continue with TP keep sat >92% Trach changed from cuffless to size 6 on 12/31 Bronchodilators, ICU vent bundle Pulm toilet, trach care Large bilateral effusions on CT chest. Right-sided pigtail chest tube placed 01/03/2018, 1.35 L output since placement Pleural fluid studies consistent with transudative effusion ff output GI Continue tube feeds-Glucerna 1.5 with goal rate 60ml/hr On Pepcid 10mg BID : chronic kidney instufficiency Monitor renal function, electrolytes replacement per protocol Cr: 1.5 today Heme: Anemia GI bleed; Status post EGD colonoscopy. GI has signed off, patient with healed rectal ulcers and hemorrhoids. Monitor CBC, coags- continue IV heparin- overlap with coumadin- started 5 mg daily ff INR if INR therapetuic in am- DC heparin Endo DM type 2 - A1C 9.6 On SSI for glycemic control consider starting scheduled long acting continue on glucerna TF GI prophylaxis- on Pepcid DVT prophylaxis- On IV heparin + coumadin overlap- ff INR- Coumadin up to 5 m daily- ff INR 01/07 long discussion with patient's daughter - assisted plan- she says it's difficult for helr to take her home- working - SNF- no insurance- patient here cvisiting from [place] when this unfortunate event happened - I told her to eventually that we should make DC plans- if goingnhome we- 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
[2018-01-09 13:05] LABS: Mean Corpuscular HGB Conc 30.8 % (32.0-36.0)
--- NOTE | 2018-01-09 15:48 | P.PN ---
Subjective Interval history: OBTUNDED TODAY TEMP MAX 102 Physical Exam Vital signs: Vital Signs 01/08/18 16:00 01/08/18 18:00 01/08/18 19:48 Temperature 98.1 F Pulse Rate 102 H 111 H 113 H Respiratory Rate 15 20 Blood Pressure 112/61 Pulse Oximetry 98 100 01/08/18 20:00 01/08/18 22:00 01/09/18 00:00 Temperature 100.1 F H 100.2 F H Pulse Rate 112 H 114 H 124 H Respiratory Rate 16 18 Blood Pressure 131/79 119/66 Pulse Oximetry 100 99 01/09/18 02:00 01/09/18 03:30 01/09/18 04:00 Temperature 102.8 F H Pulse Rate 133 H 125 H Respiratory Rate 18 Blood Pressure 117/71 Pulse Oximetry 100 94 L 01/09/18 05:30 01/09/18 06:00 01/09/18 08:00 Temperature 102.1 F H Pulse Rate 118 H 123 H Respiratory Rate 19 Blood Pressure 115/63 Pulse Oximetry 95 98 01/09/18 08:41 01/09/18 10:00 01/09/18 10:30 Temperature 99.8 F H Pulse Rate 129 H Respiratory Rate Blood Pressure Pulse Oximetry 100 01/09/18 12:00 01/09/18 14:00 Temperature 99 F Pulse Rate 119 H 122 H Respiratory Rate 16 Blood Pressure 115/65 Pulse Oximetry 96 Intake & Output 01/08/18 01/09/18 01/09/18 18:59 06:59 18:59 Intake Total 620 / 620 1153 / 1153 100 / 100 Output Total 800 / 800 1160 / 1160 Balance -180 / -180 -7 / -7 100 / 100 Weight 80 kg Intake: IV 200 / 200 277 / 277 100 / 100 Heparin/D5W 25,000 U/250 mL 25, 177 / 177 000 unit In 250 ml @ 1,000 UNITS/HR 10 mls/hr IV.CONT TITRATE PRN Rx#:[id number] Primaxin Inj 500 MG In NS Inj 200 / 200 100 / 100 100 / 100 100 ML @ 200 mls/hr IV.SIG Q8H EDE Rx#:[id number] Tube Feeding 420 / 420 756 / 756 Tube Irrigant 120 / 120 Output: Urine 750 / 750 Urine Amount (Catheter) 800 / 800 Indwelling Urethral Catheter 800 / 800 Chest Tube Drainage 410 / 410 Left 150 / 150 Right Mid-Axillary Chest 260 / 260 Other: Date of Last Bowel Movement 01/08/18 01/09/18 01/09/18 # Bowel Movements 1 1 Narrative: eyes opened to call of name, awake and alert smiled , made eye contact, HEAD: Normocephalic. EYES: No scleral icterus. No injection or drainage. NECK: Supple, trachea midline. No JVD or lymphadenopathy. + trach in place CARDIOVASCULAR: Regular rate and rhythm without murmurs, gallops, or rubs. RESPIRATORY: Breath sounds equal bilaterally, diminished at bases. No accessory muscle use. Right pigtail chest tube in place Left pigtail catheter in place back- decubitus ulcer- dressing in place GASTROINTESTINAL: Abdomen soft, non-tender, nondistended. +PEG tube in place garcia in place MUSCULOSKELETAL: No cyanosis, or edema. some superficail wounds Neuro: opened eyes to call of his name, unchange status - Urinary Catheter Management Straight Cath placed during this visit: yes Urethral indwelling: Yes Reason for continuing: Not indwelling catheter Insertion date: 01/01/18 Insertion time: 16:00 Indwelling Urethral Catheter Cath placed during this visit: yes Reason for continuing: Acute urinary retention Insertion date: 01/01/18 Insertion time: 16:30 Results - Labs CBC & Chem 7: 01/09/18 12:15 01/05/18 06:59 Laboratory Results - last 24 hr 01/08/18 01/08/18 01/09/18 17:04 23:31 05:12 WBC RBC Hgb Hct MCV MCH MCHC RDW Plt Count MPV Neut % (Auto) Lymph % (Auto) [place] % (Auto) Eos % (Auto) Baso % (Auto) Neut # (Auto) Lymph # (Auto) [place] # (Auto) Eos # (Auto) Baso # (Auto) WBC Differential Differential Comment PT 22.1 H INR 2.2 APTT 55.2 H D POC Glucose 171 H 236 H Urine Color Urine Clarity Urine pH Ur Specific [place] Urine Protein Urine Glucose (UA) Urine Ketones Urine Occult Blood Urine Nitrate Urine Bilirubin Urine Urobilinogen Ur Leukocyte Esterase Urine RBC Urine WBC Urine WBC Clumps Ur Squamous Epith Cells Urine Bacteria Urine Mucus Micro UA Comment Urine Culture Comments 01/09/18 01/09/18 01/09/18 05:45 10:25 12:00 WBC RBC Hgb Hct MCV MCH MCHC RDW Plt Count MPV Neut % (Auto) Lymph % (Auto) [place] % (Auto) Eos % (Auto) Baso % (Auto) Neut # (Auto) Lymph # (Auto) [place] # (Auto) Eos # (Auto) Baso # (Auto) WBC Differential Differential Comment PT INR APTT POC Glucose 267 H 243 H Urine Color Yellow Urine Clarity Hazy H Urine pH 7.0 Ur Specific [place] 1.015 Urine Protein 100 H Urine Glucose (UA) 50 Urine Ketones Trace Urine Occult Blood Negative Urine Nitrate Negative Urine Bilirubin Negative Urine Urobilinogen 2.0 H Ur Leukocyte Esterase Large H Urine RBC 6 H Urine WBC 71 H Urine WBC Clumps Rare H Ur Squamous Epith Cells <1 Urine Bacteria Occasional H Urine Mucus Few H Micro UA Comment Cath-culture ind Urine Culture Comments Cath-cult indicated 01/09/18 12:15 WBC 17.0 H RBC 3.12 L Hgb 8.8 L Hct 28.6 L MCV 91.5 MCH 28.2 MCHC 30.8 L RDW 20.1 H Plt Count 418 MPV 8.8 Neut % (Auto) 72.1 H Lymph % (Auto) 20.3 [place] % (Auto) 6.7 Eos % (Auto) 0.3 Baso % (Auto) 0.6 Neut # (Auto) 12.3 H Lymph # (Auto) 3.5 [place] # (Auto) 1.1 H Eos # (Auto) 0.0 Baso # (Auto) 0.1 WBC Differential . Differential Comment Auto diff final PT INR APTT POC Glucose Urine Color Urine Clarity Urine pH Ur Specific [place] Urine Protein Urine Glucose (UA) Urine Ketones Urine Occult Blood Urine Nitrate Urine Bilirubin Urine Urobilinogen Ur Leukocyte Esterase Urine RBC Urine WBC Urine WBC Clumps Ur Squamous Epith Cells Urine Bacteria Urine Mucus Micro UA Comment Urine Culture Comments Assessment and Plan - Plan RESPIRATORY FAILURE FEVER cva cad respiratory failure post trach bilateral effusions bilateral chest tubes in place plan o2 as needed CULTURES DONE PULM TOILET REMOVE CHEST TUBES WHEN POSSIBLE F/U CXRAY
--- NOTE | 2018-01-09 16:54 | XR ---
EXAM DATE: 01/09/2018 4:21 PM EDT AGE/SEX: 77 years / Male INDICATIONS: Shortness of breath CLINICAL DATA: This is the patient's initial encounter. Patient reports that signs and symptoms have been present for 1 day and indicates a pain score of Nonresponsive. MEDICAL/SURGICAL HISTORY: . Cardiovascular disease. Diabetes. None. COMPARISON: [facility] – [place], CHEST 1V SINGLE AP, 01/05/2018. . FINDINGS: The patient is rotated into left posterior oblique projection. The cardiac silhouette is enlarged in transverse diameter. There are findings of congestive heart failure with interstitial and alveolar op acity bilaterally. There is left lower lobe atelectasis versus pneumonia. Moderate size bilateral pl eural effusions are identified. A tracheostomy tube is in place in the midline. CONCLUSION: Cardiomegaly and findings of congestive heart failure. There has been no significant change when com pared to the prior exam. Electronically signed by: Abundio Fleming MD 01/09/2018 4:52 PM EDT
[2018-01-09] MEDS ORDERED: Vancomycin Inj 1 GM/200 ML PIGGYBACK IV.SIG ONE (18:56)
[2018-01-09] MEDS ORDERED: Vancomycin Consult Pharmacy 1 EACH OTHER SCH (18:57)
[2018-01-09] MEDS ORDERED: Vancomycin Inj 1,000 MG in Sodium Chlor 0.9% Inj 250 ML IV.SIG ONE (20:00)
[2018-01-09 22:05] LABS: Bacteria,Urine Few /hpf; Bilirubin,Urine Negative (Negative); Clarity,Urine Hazy (Clear); Color,Urine Yellow (Yellw/Straw); Glucose,Urine (UA) 50 mg/dL (Negative); Leukocyte Esterase,Urine Moderate (Negative); Mucus,Urine Few /lpf (Occasional); Nitrite,Urine Negative (Negative); Specific Gravity,Urine 1.015 (1.002-1.035)
[2018-01-10] MEDS: Insulin NovoLIN Regular Correctional Sugar Inj SQ SCH ×6 (00:12→18:06)
[2018-01-10] MEDS: Heparin Drip 25,000 UNIT/250 ML BAG IV.CONT PRN (00:56)
[2018-01-10] MEDS: Acetaminophen 325 MG Tablet PO PRN ×2 (01:16→16:01)
[2018-01-10 07:45] LABS: Baso # (Auto) 0.1 th/mm3 (0.0-0.2); Baso % (Auto) 0.4 % (0.0-2.0); Eos # (Auto) 0.1 th/mm3 (0.0-0.4); Eos % (Auto) 0.6 % (0.0-4.0); Hemoglobin 8.7 gm/dL (13.0-17.0); Lymph # (Auto) 3.8 th/mm3 (1.0-4.8); Lymph % (Auto) 24.4 % (9.0-44.0); Mean Corpuscular HGB Conc 31.3 % (32.0-36.0); Mean Corpuscular Hemoglobin 28.5 pg (27.0-34.0); Mean Corpuscular Volume 91.2 fL (80.0-100.0); Mean Platelet Volume 9.2 fL (7.0-11.0); Mono # (Auto) 1.1 th/mm3 (0.0-0.9); Mono % (Auto) 7.3 % (0.0-8.0); Neut # (Auto) 10.5 th/mm3 (1.8-7.7); Neut % (Auto) 67.3 % (16.0-70.0); Platelet Count 433 th/mm3 (150-450); Red Blood Count 3.07 mil/mm3 (4.50-5.90); Red Cell Distribution Width 20.7 % (11.6-17.2); White Blood Count 15.6 th/mm3 (4.0-11.0)
[2018-01-10 07:57] LABS: Activated Partial Thrombo Time 55.3 sec (24.3-30.1); Prothrombin Time 22.7 sec (9.8-11.6)
[2018-01-10 07:58] LABS: INR 2.2 Ratio
[2018-01-10 08:03] LABS: Albumin 1.3 g/dL (3.4-5.0); Anion Gap 8 meq/L (5-15); Aspartate Aminotransferase 33 U/L (15-37); Blood Urea Nitrogen 50 mg/dL (7-18); Calcium 8.3 mg/dL (8.5-10.1); Carbon Dioxide 24.9 meq/L (21.0-32.0); Chloride 113 meq/L (98-107); Glomerular Filtration Rate 46 mL/min (>89); Glucose,Random 196 mg/dL (74-106); Potassium 5.1 meq/L (3.5-5.1); Sodium 146 meq/L (136-145)
[2018-01-10 08:05] LABS: Alanine Aminotransferase 23 U/L (12-78)
[2018-01-10 08:08] LABS: Alkaline Phosphatase 163 U/L (45-117); Total Protein 7.8 g/dL (6.4-8.2)
[2018-01-10] MEDS: Chlorhexidine 0.12% Oral Kit 15 ML UDC SWISH-SPIT SCH ×2 (08:16→21:09)
[2018-01-10] MEDS: Hydrocortisone Acetate 25 MG Supp RECTAL SCH ×2 (08:17→21:10)
[2018-01-10] MEDS: Polyethylene Glycol 3350 17 GM Packet PO SCH (08:17)
[2018-01-10] MEDS: Methylphenidate HCl 5 MG Tablet PO SCH ×2 (08:17→11:56)
[2018-01-10] MEDS: Insulin Detemir Inj 1,000 UNIT/10 ML Vial SQ SCH ×2 (08:17→21:10)
[2018-01-10] MEDS: Famotidine 20 MG Tablet PO SCH ×2 (08:18→21:11)
[2018-01-10] MEDS: Collagenase Oint 30 GM Tube TOPICAL SCH (08:19)
--- NOTE | 2018-01-10 09:49 | P.PN ---
Physical Exam Vital signs: Vital Signs 01/09/18 10:00 01/09/18 10:30 01/09/18 12:00 Temperature 99.8 F H 99 F Pulse Rate 129 H 119 H Respiratory Rate 16 Blood Pressure 115/65 Pulse Oximetry 96 01/09/18 14:00 01/09/18 16:00 01/09/18 16:45 Temperature 100.1 F H Pulse Rate 122 H 115 H 117 H Respiratory Rate 16 Blood Pressure 92/53 L 96/54 L Pulse Oximetry 98 94 L 01/09/18 17:00 01/09/18 17:15 01/09/18 17:30 Temperature Pulse Rate 114 H 113 H 112 H Respiratory Rate Blood Pressure 101/57 L 102/56 L 105/58 L Pulse Oximetry 94 L 95 95 01/09/18 17:45 01/09/18 18:00 01/09/18 18:15 Temperature Pulse Rate 113 H 119 H 116 H Respiratory Rate Blood Pressure 109/63 116/69 114/69 Pulse Oximetry 97 98 100 01/09/18 18:30 01/09/18 18:45 01/09/18 19:00 Temperature Pulse Rate 114 H 113 H 115 H Respiratory Rate Blood Pressure 108/62 106/60 108/60 Pulse Oximetry 100 99 100 01/09/18 19:15 01/09/18 19:30 01/09/18 19:31 Temperature Pulse Rate 115 H 115 H Respiratory Rate Blood Pressure 105/60 107/62 Pulse Oximetry 100 100 98 01/09/18 19:45 01/09/18 20:00 01/09/18 20:15 Temperature 99.5 F Pulse Rate 123 H 119 H 118 H Respiratory Rate 26 H Blood Pressure 120/69 103/58 L 114/62 Pulse Oximetry 100 100 100 01/09/18 20:30 01/09/18 20:32 01/09/18 20:45 Temperature Pulse Rate 117 H 117 H 117 H Respiratory Rate 22 Blood Pressure 112/63 109/64 Pulse Oximetry 100 100 100 01/09/18 21:00 01/09/18 21:15 01/09/18 21:30 Temperature Pulse Rate 116 H 116 H 118 H Respiratory Rate Blood Pressure 111/65 109/59 L 114/60 Pulse Oximetry 100 100 99 01/09/18 21:45 01/09/18 22:00 01/09/18 22:15 Temperature Pulse Rate 117 H 117 H 117 H Respiratory Rate Blood Pressure 113/62 113/63 112/60 Pulse Oximetry 100 100 100 01/09/18 22:30 01/09/18 22:45 01/10/18 00:00 Temperature 99.1 F Pulse Rate 119 H 118 H 119 H Respiratory Rate 25 H Blood Pressure 110/63 109/60 111/58 L Pulse Oximetry 100 99 100 01/10/18 02:00 01/10/18 04:00 01/10/18 05:57 Temperature 99.6 F Pulse Rate 114 H 108 H Respiratory Rate 26 H Blood Pressure 113/84 Pulse Oximetry 100 100 01/10/18 06:00 01/10/18 07:00 01/10/18 08:00 Temperature Pulse Rate 113 H 114 H Respiratory Rate 18 Blood Pressure Pulse Oximetry 100 01/10/18 08:35 Temperature Pulse Rate Respiratory Rate Blood Pressure Pulse Oximetry 98 Intake & Output 01/09/18 01/10/18 01/10/18 18:59 06:59 18:59 Intake Total 850 / 850 868 / 868 100 / 100 Output Total 1080 / 1080 1600 / 1600 Balance -230 / -230 -732 / -732 100 / 100 Weight 78.8 kg Intake: IV 200 / 200 148 / 148 100 / 100 Heparin/D5W 25,000 U/250 mL 25, 148 / 148 000 unit In 250 ml @ 1,000 UNITS/HR 10 mls/hr IV.CONT TITRATE PRN Rx#:[id number] Primaxin Inj 500 MG In NS Inj 200 / 200 100 / 100 100 ML @ 200 mls/hr IV.SIG Q8H EDE Rx#:[id number] Oral 0 / 0 Tube Feeding 650 / 650 720 / 720 Output: Stool 400 / 400 Urine Amount (Catheter) 500 / 500 550 / 550 Indwelling Urethral Catheter 500 / 500 550 / 550 Chest Tube Drainage 580 / 580 650 / 650 Left 280 / 280 300 / 300 Right Mid-Axillary Chest 300 / 300 350 / 350 Other: Date of Last Bowel Movement 01/09/18 01/10/18 01/10/18 # Bowel Movements 2 # Incontinent Bowel Movements 2 Narrative: Subjective Interval history: VSS , doesn't appear in distress. No events overnight INR is therapeutic x 2 days . DC heparin . Monitro INR, continue coumadin Physical Exam GENERAL: In bed chronically ill elderly male, appears in nad at this time. Opens eyes when calling his name. EYES: No scleral icterus. No injection or drainage. NECK: Trach in place. Supple, trachea midline. No JVD or lymphadenopathy. CARDIOVASCULAR: Regular rate and rhythm without murmurs, gallops, or rubs. RESPIRATORY: Breath sounds equal bilaterally. No accessory muscle use. GASTROINTESTINAL: PEG tube in place. Abdomen soft, non-tender, nondistended. MUSCULOSKELETAL: No cyanosis, or edema. BACK: With decub ulcer. Nontender without obvious deformity. No CVA tenderness. NEURO: opens eyes with calling his name. Assessment and Plan 77 years old male Acute on chronic resp failure s/p trach/PEG CVA Anemia s/p NSTEMI Optic neuritis - Monitor neuro status, spoke to patient's daughter she would like 2nd opinion for neurology - neurology and Dr. Pereira has seen patient with encephalopathy, seizures, L ENID infarct. Status post systemic TPA on November 09 Repeat MRI unchanged; EEG with diffuse encephalopathy on aspirin, Plavix, statin on RitCrystal patton Currently on IV heparin, overlap with coumadin. ff INR 2.2 today finally on 5 mg coumadin if INR therapeutic 2 days in a row tomorrow- DC heparin drip Neuropsychology is following Optic neuritis. Status post treatment with IV hydrocortisone Encephalopathy persists New FEver- t max 102.this am, Leukoctyosis 17,000 Recurrent UTI - WBC in urine 72, large leukocyte esterase (specimen is from the new garcia) Prior history of ESBL E. coli- Healthcare associated pneumonia with Klebsiella and ESBL E. coli Bialteral Pleural effusion- pigtail catheters in place - change garcia- catheter today 01/09 - cultures from pleural fluid- no growth x 72 hours -repeat blood cultures x 2 today- ff - ff repat urine cultures - ESBL E. coli +blood cultures on 10/24. Completed course of antibiotics. - Urine culture on December 10 with Pseudomonas, pansensitive. Cipro stopped 12/17 -ID -Dr. Mariza Estrada following -currently on Imipenen d/w Dr. Moncada- covering ID- we will Add Vancomycin to regimen - order for 1 gm IV x 1 now and consult pharmacy - d/w pharmacist - BMP in am - repeat CBC in am Sacral decub with possible underlying infection, osteomyelitis. - Sacral decub has eschar with possible underlying osteomyelitis. Patient family refused surgical debridement. 12/31 Wound cx: ESBL E.coli Skin Scrotal Edema/ulcerations Has been evaluated by Urology: continue with clean intermittent catheter as needed, scrotal elevation Sacral wound -Seen by Plastic surgery; debridement declined per patient's family -Wound care is following- apply dressings per wound management recommendations CV: NSTEMI Echo 10/19: LV systolic function is moderately reduced, EF 40-45%. Cardiology following- Dr. Hernández Monitor HR and BP keep MAP>65mmHg Cardura 2mg daily and Coreg 3.125mg BID on hold On Lipitor 80mg qhs Continue aspirin Plavix statins Pulm: Continue with TP keep sat >92% Trach changed from cuffless to size 6 on 12/31 Bronchodilators, ICU vent bundle Pulm toilet, trach care Large bilateral effusions on CT chest. Right-sided pigtail chest tube placed 01/03/2018, 1.35 L output since placement Pleural fluid studies consistent with transudative effusion ff output GI Continue tube feeds-Glucerna 1.5 with goal rate 60ml/hr On Pepcid 10mg BID : chronic kidney instufficiency Monitor renal function, electrolytes replacement per protocol Cr: 1.5 today Heme: Anemia GI bleed; Status post EGD colonoscopy. GI has signed off, patient with healed rectal ulcers and hemorrhoids. Monitor CBC, coags- Continue Coumadin 5 mg daily. INR is therapeutic. Consult pharmacy to ff for INR ff INR Endo DM type 2 - A1C 9.6 On SSI for glycemic control consider starting scheduled long acting continue on glucerna TF GI prophylaxis- on Pepcid DVT prophylaxis- On IV heparin + coumadin overlap- ff INR- Coumadin up to 5 m daily- ff INR 01/07 long discussion with patient's daughter - snf plan- she says it's difficult for helr to take her home- working - SNF- no insurance- patient here cvisiting from [place] when this unfortunate event happened - I told her to eventually that we should make DC plans- if goingnhome we- chief nurse executive hel[ with DME/hospital bed CM assissting with placment- patient with trach Discussed with the ICU nurse , will stop heparin drip, as INR is therapeutic - Urinary Catheter Management Straight Cath placed during this visit: yes Urethral indwelling: Yes Reason for continuing: Severe pressure ulcer/wound Insertion date: 01/09/18 Insertion time: 08:00 Indwelling Urethral Catheter Cath placed during this visit: yes Reason for continuing: Acute urinary retention Insertion date: 01/01/18 Insertion time: 16:30 Results - Labs CBC & Chem 7: 01/10/18 06:38 01/10/18 06:35 Laboratory Results - last 24 hr 01/09/18 01/09/18 01/09/18 10:25 12:00 12:15 WBC 17.0 H RBC 3.12 L Hgb 8.8 L Hct 28.6 L MCV 91.5 MCH 28.2 MCHC 30.8 L RDW 20.1 H Plt Count 418 MPV 8.8 Neut % (Auto) 72.1 H Lymph % (Auto) 20.3 [place] % (Auto) 6.7 Eos % (Auto) 0.3 Baso % (Auto) 0.6 Neut # (Auto) 12.3 H Lymph # (Auto) 3.5 [place] # (Auto) 1.1 H Eos # (Auto) 0.0 Baso # (Auto) 0.1 WBC Differential . Differential Comment Auto diff final PT INR APTT Sodium Potassium Chloride Carbon Dioxide Anion Gap BUN Creatinine Estimated GFR POC Glucose 243 H Random Glucose Calcium Total Bilirubin AST ALT Alkaline Phosphatase Total Protein Albumin Urine Color Yellow Urine Clarity Hazy H Urine pH 7.0 Ur Specific [place] 1.015 Urine Protein 100 H Urine Glucose (UA) 50 Urine Ketones Trace Urine Occult Blood Negative Urine Nitrate Negative Urine Bilirubin Negative Urine Urobilinogen 2.0 H Ur Leukocyte Esterase Large H Urine RBC 6 H Urine WBC 71 H Urine WBC Clumps Rare H Ur Squamous Epith Cells <1 Urine Bacteria Occasional H Urine Mucus Few H Micro UA Comment Cath-culture ind Urine Culture Comments Cath-cult indicated 01/09/18 01/09/18 01/09/18 15:45 17:45 19:44 WBC RBC Hgb Hct MCV MCH MCHC RDW Plt Count MPV Neut % (Auto) Lymph % (Auto) [place] % (Auto) Eos % (Auto) Baso % (Auto) Neut # (Auto) Lymph # (Auto) [place] # (Auto) Eos # (Auto) Baso # (Auto) WBC Differential Differential Comment PT INR APTT Sodium Potassium Chloride Carbon Dioxide Anion Gap BUN Creatinine Estimated GFR POC Glucose 229 H 228 H Random Glucose Calcium Total Bilirubin AST ALT Alkaline Phosphatase Total Protein Albumin Urine Color Yellow Urine Clarity Hazy H Urine pH 7.0 Ur Specific [place] 1.015 Urine Protein 100 H Urine Glucose (UA) 50 Urine Ketones Trace Urine Occult Blood Negative Urine Nitrate Negative Urine Bilirubin Negative Urine Urobilinogen 2.0 H Ur Leukocyte Esterase Moderate H Urine RBC 4 H Urine WBC 44 H Urine WBC Clumps Ur Squamous Epith Cells Urine Bacteria Few H Urine Mucus Few H Micro UA Comment Urine Culture Comments 01/10/18 01/10/18 01/10/18 00:08 06:19 06:35 WBC RBC Hgb Hct MCV MCH MCHC RDW Plt Count MPV Neut % (Auto) Lymph % (Auto) [place] % (Auto) Eos % (Auto) Baso % (Auto) Neut # (Auto) Lymph # (Auto) [place] # (Auto) Eos # (Auto) Baso # (Auto) WBC Differential Differential Comment PT INR APTT Sodium 146 H Potassium 5.1 Chloride 113 H Carbon Dioxide 24.9 Anion Gap 8 BUN 50 H Creatinine 1.47 H Estimated GFR 46 L POC Glucose 231 H 227 H Random Glucose 196 H Calcium 8.3 L Total Bilirubin 0.4 AST 33 ALT 23 Alkaline Phosphatase 163 H Total Protein 7.8 D Albumin 1.3 L Urine Color Urine Clarity Urine pH Ur Specific [place] Urine Protein Urine Glucose (UA) Urine Ketones Urine Occult Blood Urine Nitrate Urine Bilirubin Urine Urobilinogen Ur Leukocyte Esterase Urine RBC Urine WBC Urine WBC Clumps Ur Squamous Epith Cells Urine Bacteria Urine Mucus Micro UA Comment Urine Culture Comments 01/10/18 01/10/18 06:38 06:38 WBC 15.6 H RBC 3.07 L Hgb 8.7 L Hct 28.0 L MCV 91.2 MCH 28.5 MCHC 31.3 L RDW 20.7 H Plt Count 433 MPV 9.2 Neut % (Auto) 67.3 Lymph % (Auto) 24.4 [place] % (Auto) 7.3 Eos % (Auto) 0.6 Baso % (Auto) 0.4 Neut # (Auto) 10.5 H Lymph # (Auto) 3.8 [place] # (Auto) 1.1 H Eos # (Auto) 0.1 Baso # (Auto) 0.1 WBC Differential . Differential Comment Auto diff final PT 22.7 H INR 2.2 APTT 55.3 H Sodium Potassium Chloride Carbon Dioxide Anion Gap BUN Creatinine Estimated GFR POC Glucose Random Glucose Calcium Total Bilirubin AST ALT Alkaline Phosphatase Total Protein Albumin Urine Color Urine Clarity Urine pH Ur Specific [place] Urine Protein Urine Glucose (UA) Urine Ketones Urine Occult Blood Urine Nitrate Urine Bilirubin Urine Urobilinogen Ur Leukocyte Esterase Urine RBC Urine WBC Urine WBC Clumps Ur Squamous Epith Cells Urine Bacteria Urine Mucus Micro UA Comment Urine Culture Comments - Imaging Impressions Chest X-Ray 01/09/18 15:48 CONCLUSION: Cardiomegaly and findings of congestive heart failure. There has been no significant change when compared to the prior exam. Assessment and Plan - Assessment (1) Encephalopathy Code(s): G93.40 - Encephalopathy, unspecified Status: Acute (2) CVA (cerebral vascular accident) Code(s): I63.9 - Cerebral infarction, unspecified Status: Acute (3) Wound of sacral region Code(s): S31.000A - Unspecified open wound of lower back and pelvis without penetration into retroperitoneum, initial encounter Status: Acute (4) NSTEMI (non-ST elevated myocardial infarction) Code(s): I21.4 - Non-ST elevation (NSTEMI) myocardial infarction Status: Resolved (5) Anemia Code(s): D64.9 - Anemia, unspecified Status: Acute (6) Respiratory failure with hypoxia and hypercapnia Code(s): J96.91 - Respiratory failure, unspecified with hypoxia; J96.92 - Respiratory failure, unspecified with hypercapnia Status: Resolved (7) Optic neuritis Code(s): H46.9 - Unspecified optic neuritis Status: Resolved (5) Anemia Qualifiers: Anemia type: unspecified type Qualified Code(s): D64.9 - Anemia, unspecified
[2018-01-10] MEDS ORDERED: Vancomycin Inj 1,000 MG in Sodium Chlor 0.9% Inj 250 ML IV.SIG SCH (14:00)
--- NOTE | 2018-01-10 17:08 | P.PN ---
Subjective Interval history: UNRESPONSIVE TODAY NAD Physical Exam Vital signs: Vital Signs 01/09/18 17:15 01/09/18 17:30 01/09/18 17:45 Temperature Pulse Rate 113 H 112 H 113 H Respiratory Rate Blood Pressure 102/56 L 105/58 L 109/63 Pulse Oximetry 95 95 97 01/09/18 18:00 01/09/18 18:15 01/09/18 18:30 Temperature Pulse Rate 119 H 116 H 114 H Respiratory Rate Blood Pressure 116/69 114/69 108/62 Pulse Oximetry 98 100 100 01/09/18 18:45 01/09/18 19:00 01/09/18 19:15 Temperature Pulse Rate 113 H 115 H 115 H Respiratory Rate Blood Pressure 106/60 108/60 105/60 Pulse Oximetry 99 100 100 01/09/18 19:30 01/09/18 19:31 01/09/18 19:45 Temperature Pulse Rate 115 H 123 H Respiratory Rate Blood Pressure 107/62 120/69 Pulse Oximetry 100 98 100 01/09/18 20:00 01/09/18 20:15 01/09/18 20:30 Temperature 99.5 F Pulse Rate 119 H 118 H 117 H Respiratory Rate 26 H Blood Pressure 103/58 L 114/62 112/63 Pulse Oximetry 100 100 100 01/09/18 20:32 01/09/18 20:45 01/09/18 21:00 Temperature Pulse Rate 117 H 117 H 116 H Respiratory Rate 22 Blood Pressure 109/64 111/65 Pulse Oximetry 100 100 100 01/09/18 21:15 01/09/18 21:30 01/09/18 21:45 Temperature Pulse Rate 116 H 118 H 117 H Respiratory Rate Blood Pressure 109/59 L 114/60 113/62 Pulse Oximetry 100 99 100 01/09/18 22:00 01/09/18 22:15 01/09/18 22:30 Temperature Pulse Rate 117 H 117 H 119 H Respiratory Rate Blood Pressure 113/63 112/60 110/63 Pulse Oximetry 100 100 100 01/09/18 22:45 01/10/18 00:00 01/10/18 02:00 Temperature 99.1 F Pulse Rate 118 H 119 H 114 H Respiratory Rate 25 H Blood Pressure 109/60 111/58 L Pulse Oximetry 99 100 01/10/18 02:45 01/10/18 03:00 01/10/18 03:15 Temperature Pulse Rate 114 H 113 H 112 H Respiratory Rate Blood Pressure 95/51 L 90/53 L 92/54 L Pulse Oximetry 97 96 96 01/10/18 03:30 01/10/18 03:45 01/10/18 04:00 Temperature 99.6 F Pulse Rate 112 H 111 H 108 H Respiratory Rate 26 H Blood Pressure 92/53 L 98/53 L 113/64 Pulse Oximetry 96 95 97 01/10/18 04:15 01/10/18 04:30 01/10/18 04:45 Temperature Pulse Rate 110 H 110 H 110 H Respiratory Rate Blood Pressure 105/60 106/60 106/60 Pulse Oximetry 94 L 93 L 95 01/10/18 05:00 01/10/18 05:15 01/10/18 05:31 Temperature Pulse Rate 109 H 109 H 111 H Respiratory Rate Blood Pressure 105/60 104/59 L 77/54 L Pulse Oximetry 95 94 L 96 01/10/18 05:46 01/10/18 05:57 01/10/18 06:00 Temperature Pulse Rate 114 H 113 H Respiratory Rate Blood Pressure 135/85 112/61 Pulse Oximetry 95 100 98 01/10/18 06:15 01/10/18 06:30 01/10/18 06:45 Temperature Pulse Rate 116 H 113 H 113 H Respiratory Rate Blood Pressure 107/62 106/60 107/63 Pulse Oximetry 100 97 98 01/10/18 07:00 01/10/18 07:15 01/10/18 07:30 Temperature Pulse Rate 110 H 111 H 111 H Respiratory Rate Blood Pressure 105/62 113/65 113/66 Pulse Oximetry 99 100 100 01/10/18 07:45 01/10/18 08:00 01/10/18 08:15 Temperature 98.6 F Pulse Rate 115 H 113 H 114 H Respiratory Rate 20 Blood Pressure 116/65 114/67 111/60 Pulse Oximetry 99 98 97 01/10/18 08:35 01/10/18 09:00 01/10/18 10:00 Temperature Pulse Rate 113 H 115 H Respiratory Rate Blood Pressure 114/64 108/59 L Pulse Oximetry 98 98 97 01/10/18 11:00 01/10/18 12:00 01/10/18 13:00 Temperature 98.6 F Pulse Rate 117 H 114 H 112 H Respiratory Rate Blood Pressure 118/66 112/59 L 109/61 Pulse Oximetry 98 100 99 01/10/18 14:00 01/10/18 15:00 01/10/18 16:00 Temperature 100.6 F H Pulse Rate 109 H 111 H 109 H Respiratory Rate 18 Blood Pressure 107/56 L 110/57 L 100/57 L Pulse Oximetry 99 100 98 Intake & Output 01/09/18 01/10/18 01/10/18 18:59 06:59 18:59 Intake Total 850 / 850 868 / 868 500 / 500 Output Total 1080 / 1080 1600 / 1600 Balance -230 / -230 -732 / -732 500 / 500 Weight 78.8 kg Intake: IV 200 / 200 148 / 148 500 / 500 Heparin/D5W 25,000 U/250 mL 25, 148 / 148 50 / 50 000 unit In 250 ml @ 1,000 UNITS/HR 10 mls/hr IV.CONT TITRATE PRN Rx#:[id number] Primaxin Inj 500 MG In NS Inj 200 / 200 200 / 200 100 ML @ 200 mls/hr IV.SIG Q8H EDE Rx#:[id number] Vancomycin Inj 1,000 MG In NS 250 / 250 Inj 250 ML @ 250 mls/hr IV.SIG Q18H EDE Rx#:[id number] Oral 0 / 0 Tube Feeding 650 / 650 720 / 720 Output: Stool 400 / 400 Urine Amount (Catheter) 500 / 500 550 / 550 Indwelling Urethral Catheter 500 / 500 550 / 550 Chest Tube Drainage 580 / 580 650 / 650 Left 280 / 280 300 / 300 Right Mid-Axillary Chest 300 / 300 350 / 350 Other: Date of Last Bowel Movement 01/09/18 01/10/18 01/10/18 # Bowel Movements 2 # Incontinent Bowel Movements 2 Narrative: Subjective Interval history: VSS , doesn't appear in distress. No events overnight INR is therapeutic x 2 days . DC heparin . Monitro INR, continue coumadin Physical Exam GENERAL: In bed chronically ill elderly male, appears in nad at this time. Opens eyes when calling his name. EYES: No scleral icterus. No injection or drainage. NECK: Trach in place. Supple, trachea midline. No JVD or lymphadenopathy. CARDIOVASCULAR: Regular rate and rhythm without murmurs, gallops, or rubs. RESPIRATORY: Breath sounds equal bilaterally. No accessory muscle use. GASTROINTESTINAL: PEG tube in place. Abdomen soft, non-tender, nondistended. MUSCULOSKELETAL: No cyanosis, or edema. BACK: With decub ulcer. Nontender without obvious deformity. No CVA tenderness. NEURO: opens eyes with calling his name. Assessment and Plan 77 years old male Acute on chronic resp failure s/p trach/PEG CVA Anemia s/p NSTEMI Optic neuritis - Monitor neuro status, spoke to patient's daughter she would like 2nd opinion for neurology - neurology and Dr. Pereira has seen patient with encephalopathy, seizures, L ENID infarct. Status post systemic TPA on November 09 Repeat MRI unchanged; EEG with diffuse encephalopathy on aspirin, Plavix, statin on Ritalin, Keppra Currently on IV heparin, overlap with coumadin. ff INR 2.2 today finally on 5 mg coumadin if INR therapeutic 2 days in a row tomorrow- DC heparin drip Neuropsychology is following Optic neuritis. Status post treatment with IV hydrocortisone Encephalopathy persists New FEver- t max 102.this am, Leukoctyosis 17,000 Recurrent UTI - WBC in urine 72, large leukocyte esterase (specimen is from the new garcia) Prior history of ESBL E. coli- Healthcare associated pneumonia with Klebsiella and ESBL E. coli Bialteral Pleural effusion- pigtail catheters in place - change garcia- catheter today 01/09 - cultures from pleural fluid- no growth x 72 hours -repeat blood cultures x 2 today- ff - ff repat urine cultures - ESBL E. coli +blood cultures on 10/24. Completed course of antibiotics. - Urine culture on December 10 with Pseudomonas, pansensitive. Cipro stopped 12/17 -ID -Dr. Mariza Estrada following -currently on Imipenen d/w Dr. Moncada- covering ID- we will Add Vancomycin to regimen - order for 1 gm IV x 1 now and consult pharmacy - d/w pharmacist - BMP in am - repeat CBC in am Sacral decub with possible underlying infection, osteomyelitis. - Sacral decub has eschar with possible underlying osteomyelitis. Patient family refused surgical debridement. 12/31 Wound cx: ESBL E.coli Skin Scrotal Edema/ulcerations Has been evaluated by Urology: continue with clean intermittent catheter as needed, scrotal elevation Sacral wound -Seen by Plastic surgery; debridement declined per patient's family -Wound care is following- apply dressings per wound management recommendations CV: NSTEMI Echo 10/19: LV systolic function is moderately reduced, EF 40-45%. Cardiology following- Dr. Hernández Monitor HR and BP keep MAP>65mmHg Cardura 2mg daily and Coreg 3.125mg BID on hold On Lipitor 80mg qhs Continue aspirin Plavix statins Pulm: Continue with TP keep sat >92% Trach changed from cuffless to size 6 on 12/31 Bronchodilators, ICU vent bundle Pulm toilet, trach care Large bilateral effusions on CT chest. Right-sided pigtail chest tube placed 01/03/2018, 1.35 L output since placement Pleural fluid studies consistent with transudative effusion ff output GI Continue tube feeds-Glucerna 1.5 with goal rate 60ml/hr On Pepcid 10mg BID : chronic kidney instufficiency Monitor renal function, electrolytes replacement per protocol Cr: 1.5 today Heme: Anemia GI bleed; Status post EGD colonoscopy. GI has signed off, patient with healed rectal ulcers and hemorrhoids. Monitor CBC, coags- Continue Coumadin 5 mg daily. INR is therapeutic. Consult pharmacy to ff for INR ff INR Endo DM type 2 - A1C 9.6 On SSI for glycemic control consider starting scheduled long acting continue on glucerna TF GI prophylaxis- on Pepcid DVT prophylaxis- On IV heparin + coumadin overlap- ff INR- Coumadin up to 5 m daily- ff INR 01/07 long discussion with patient's daughter - [facility] plan- she says it's difficult for helr to take her home- working - SNF- no insurance- patient here cvisiting from [place] when this unfortunate event happened - I told her to eventually that we should make DC plans- if goingnhome we- machine stripper hel[ with DME/hospital bed CM assissting with placment- patient with trach Discussed with the ICU nurse , will stop heparin drip, as INR is therapeutic - Urinary Catheter Management Straight Cath placed during this visit: yes Urethral indwelling: Yes Reason for continuing: Severe pressure ulcer/wound Insertion date: 01/09/18 Insertion time: 08:00 Indwelling Urethral Catheter Cath placed during this visit: yes Reason for continuing: Acute urinary retention Insertion date: 01/01/18 Insertion time: 16:30 Results - Labs CBC & Chem 7: 01/10/18 06:38 01/10/18 06:35 Laboratory Results - last 24 hr 01/09/18 01/09/18 01/09/18 15:45 17:45 19:44 WBC RBC Hgb Hct MCV MCH MCHC RDW Plt Count MPV Neut % (Auto) Lymph % (Auto) [place] % (Auto) Eos % (Auto) Baso % (Auto) Neut # (Auto) Lymph # (Auto) [place] # (Auto) Eos # (Auto) Baso # (Auto) WBC Differential Differential Comment PT INR APTT Sodium Potassium Chloride Carbon Dioxide Anion Gap BUN Creatinine Estimated GFR POC Glucose 229 H 228 H Random Glucose Calcium Total Bilirubin AST ALT Alkaline Phosphatase Total Protein Albumin Urine Color Yellow Urine Clarity Hazy H Urine pH 7.0 Ur Specific [place] 1.015 Urine Protein 100 H Urine Glucose (UA) 50 Urine Ketones Trace Urine Occult Blood Negative Urine Nitrate Negative Urine Bilirubin Negative Urine Urobilinogen 2.0 H Ur Leukocyte Esterase Moderate H Urine RBC 4 H Urine WBC 44 H Urine Bacteria Few H Urine Mucus Few H 01/10/18 01/10/18 01/10/18 00:08 06:19 06:35 WBC RBC Hgb Hct MCV MCH MCHC RDW Plt Count MPV Neut % (Auto) Lymph % (Auto) [place] % (Auto) Eos % (Auto) Baso % (Auto) Neut # (Auto) Lymph # (Auto) [place] # (Auto) Eos # (Auto) Baso # (Auto) WBC Differential Differential Comment PT INR APTT Sodium 146 H Potassium 5.1 Chloride 113 H Carbon Dioxide 24.9 Anion Gap 8 BUN 50 H Creatinine 1.47 H Estimated GFR 46 L POC Glucose 231 H 227 H Random Glucose 196 H Calcium 8.3 L Total Bilirubin 0.4 AST 33 ALT 23 Alkaline Phosphatase 163 H Total Protein 7.8 D Albumin 1.3 L Urine Color Urine Clarity Urine pH Ur Specific [place] Urine Protein Urine Glucose (UA) Urine Ketones Urine Occult Blood Urine Nitrate Urine Bilirubin Urine Urobilinogen Ur Leukocyte Esterase Urine RBC Urine WBC Urine Bacteria Urine Mucus 01/10/18 01/10/18 01/10/18 06:38 06:38 11:10 WBC 15.6 H RBC 3.07 L Hgb 8.7 L Hct 28.0 L MCV 91.2 MCH 28.5 MCHC 31.3 L RDW 20.7 H Plt Count 433 MPV 9.2 Neut % (Auto) 67.3 Lymph % (Auto) 24.4 [place] % (Auto) 7.3 Eos % (Auto) 0.6 Baso % (Auto) 0.4 Neut # (Auto) 10.5 H Lymph # (Auto) 3.8 [place] # (Auto) 1.1 H Eos # (Auto) 0.1 Baso # (Auto) 0.1 WBC Differential . Differential Comment Auto diff final PT 22.7 H INR 2.2 APTT 55.3 H Sodium Potassium Chloride Carbon Dioxide Anion Gap BUN Creatinine Estimated GFR POC Glucose 241 H Random Glucose Calcium Total Bilirubin AST ALT Alkaline Phosphatase Total Protein Albumin Urine Color Urine Clarity Urine pH Ur Specific [place] Urine Protein Urine Glucose (UA) Urine Ketones Urine Occult Blood Urine Nitrate Urine Bilirubin Urine Urobilinogen Ur Leukocyte Esterase Urine RBC Urine WBC Urine Bacteria Urine Mucus Microbiology 01/09/18 12:15 Blood - Peripheral Aerobic Blood Culture - Preliminary Yeast species 01/09/18 12:15 Blood - Peripheral Anaerobic Blood Culture - Preliminary No growth in 1 day 01/03/18 17:00 Fluid - Pleural fluid Fungal Smear - Final No fungal elements seen 01/03/18 17:00 Fluid - Pleural fluid Fungal Culture - Preliminary No growth in 1 week 01/03/18 17:00 Fluid - Pleural fluid Acid Fast Bacilli Smear - Final No acid fast bacilli seen 01/03/18 17:00 Fluid - Pleural fluid Mycobacterial Culture - Preliminary No growth in 1 week 01/09/18 10:25 Catheterized Urine Urine Culture - Preliminary No growth in 24 hours 01/09/18 12:25 Blood - Peripheral Aerobic Blood Culture - Preliminary No growth in 1 day 01/09/18 12:25 Blood - Peripheral Anaerobic Blood Culture - Preliminary No growth in 1 day Assessment and Plan - Plan RESPIRATORY FAILURE FEVER cva cad respiratory failure post trach bilateral effusions bilateral chest tubes in place plan o2 as needed CULTURES DONE PULM TOILET REMOVE CHEST TUBES WHEN POSSIBLE
--- NOTE | 2018-01-10 19:22 | P.PNID ---
Subjective Remarks: chart reviewe, interim prtogress noted is a 77-year-old male of descent possibly from [place] with past medical history significant for hypertension and diabetes. Patient presented to the emergency department with complaints of 10 day history of blurry vision in his right eye with associated pain to the right gnosticist. History of cataract surgery 6 weeks ago. His symptoms got progressively worse over the last 10 days so he decided to come in. He complains of blurry vision, tenderness to palpation of his right gnosticist as well as pain in brushing his hair. Patient reports no jaw claudication normalities or unintentional weight loss. He went to [facility] and saw compensation and benefits advisor Dr. Zimmerman who sent him to the ED to rule out orbital pseudotumor or temporal arteritis. MRI of the orbits show edema involving the right optic nerve. An MRA of the brain showed severe diffuse atherosclerotic disease. Inflammatory markers were ESR of 12, CRP of 0.51. Patient receives Solu-Medrol to 50 mg IV in the emergency room. Patient reportedly was doing okay and observed in the ICU. Patient was seen by tabulating supervisor Dr. Diaz who is thinking of doing a temporal artery biopsy and thinks this possibly could be giant cell arteritis. And recommended continuing IV Solu-Medrol. Overnight on October 24, 2017 patient developed signs and symptoms suggestive of sepsis and a sepsis alert was called. The 19 hospitalists ordered sepsis workup including blood and urine cultures. The blood cultures are positive for ESBL E. coli and urine cultures are positive for gram-negative. Patient has been started on empiric Zosyn IV. Blood cultures have now been reported as ESBL based on Klaus gene testing. Clinically patient appears to be deteriorating on Zosyn IV as well making this more likely an ESBL E. coli infection. Infectious diseases initially followed for E. coli ESBL bacteremia and UTI. His hospital course was complicated by Vent dependence, Pneumonia and PSAE UTI. Patient had a fever on 12/15/2017 he had blood cultures done which are negative. Other workup negative so far. ID reconsult by for ESBL in Sacral cultures, GNR UTI and Fevers. fever lasty night to 102 Blood clx done and growing yeasty in1 bottle Overnight events reviewed with RN. s/p thoracentesis yday with 900 cc fluid serous but yellow tinged fluid drained. No diarrhea No rash Opens eyes spontaneously but does not follow commands. Sacral decub with black eschar but no surrounding erythema noted. Antibiotics: vancomycin Imipenem IV Lines: periferal Lines ok Past Medical History: reviewed Allergies/Adverse Reactions: Allergies No Known Allergies Allergy (Verified 12/25/17 11:22) Objective Vital Signs 01/09/18 19:15 01/09/18 19:30 01/09/18 19:31 Temperature Pulse Rate 115 H 115 H Respiratory Rate Blood Pressure 105/60 107/62 Pulse Oximetry 100 100 98 01/09/18 19:45 01/09/18 20:00 01/09/18 20:15 Temperature 99.5 F Pulse Rate 123 H 119 H 118 H Respiratory Rate 26 H Blood Pressure 120/69 103/58 L 114/62 Pulse Oximetry 100 100 100 01/09/18 20:30 01/09/18 20:32 01/09/18 20:45 Temperature Pulse Rate 117 H 117 H 117 H Respiratory Rate 22 Blood Pressure 112/63 109/64 Pulse Oximetry 100 100 100 01/09/18 21:00 01/09/18 21:15 01/09/18 21:30 Temperature Pulse Rate 116 H 116 H 118 H Respiratory Rate Blood Pressure 111/65 109/59 L 114/60 Pulse Oximetry 100 100 99 01/09/18 21:45 01/09/18 22:00 01/09/18 22:15 Temperature Pulse Rate 117 H 117 H 117 H Respiratory Rate Blood Pressure 113/62 113/63 112/60 Pulse Oximetry 100 100 100 01/09/18 22:30 01/09/18 22:45 01/10/18 00:00 Temperature 99.1 F Pulse Rate 119 H 118 H 119 H Respiratory Rate 25 H Blood Pressure 110/63 109/60 111/58 L Pulse Oximetry 100 99 100 01/10/18 02:00 01/10/18 02:45 01/10/18 03:00 Temperature Pulse Rate 114 H 114 H 113 H Respiratory Rate Blood Pressure 95/51 L 90/53 L Pulse Oximetry 97 96 01/10/18 03:15 01/10/18 03:30 01/10/18 03:45 Temperature Pulse Rate 112 H 112 H 111 H Respiratory Rate Blood Pressure 92/54 L 92/53 L 98/53 L Pulse Oximetry 96 96 95 01/10/18 04:00 01/10/18 04:15 01/10/18 04:30 Temperature 99.6 F Pulse Rate 108 H 110 H 110 H Respiratory Rate 26 H Blood Pressure 113/64 105/60 106/60 Pulse Oximetry 97 94 L 93 L 01/10/18 04:45 01/10/18 05:00 01/10/18 05:15 Temperature Pulse Rate 110 H 109 H 109 H Respiratory Rate Blood Pressure 106/60 105/60 104/59 L Pulse Oximetry 95 95 94 L 01/10/18 05:31 01/10/18 05:46 01/10/18 05:57 Temperature Pulse Rate 111 H 114 H Respiratory Rate Blood Pressure 77/54 L 135/85 Pulse Oximetry 96 95 100 01/10/18 06:00 01/10/18 06:15 01/10/18 06:30 Temperature Pulse Rate 113 H 116 H 113 H Respiratory Rate Blood Pressure 112/61 107/62 106/60 Pulse Oximetry 98 100 97 01/10/18 06:45 01/10/18 07:00 01/10/18 07:15 Temperature Pulse Rate 113 H 110 H 111 H Respiratory Rate Blood Pressure 107/63 105/62 113/65 Pulse Oximetry 98 99 100 01/10/18 07:30 01/10/18 07:45 01/10/18 08:00 Temperature 98.6 F Pulse Rate 111 H 115 H 113 H Respiratory Rate 20 Blood Pressure 113/66 116/65 114/67 Pulse Oximetry 100 99 98 01/10/18 08:15 01/10/18 08:35 01/10/18 09:00 Temperature Pulse Rate 114 H 113 H Respiratory Rate Blood Pressure 111/60 114/64 Pulse Oximetry 97 98 98 01/10/18 10:00 01/10/18 11:00 01/10/18 12:00 Temperature 98.6 F Pulse Rate 115 H 117 H 114 H Respiratory Rate Blood Pressure 108/59 L 118/66 112/59 L Pulse Oximetry 97 98 100 01/10/18 13:00 01/10/18 14:00 01/10/18 15:00 Temperature Pulse Rate 112 H 109 H 111 H Respiratory Rate Blood Pressure 109/61 107/56 L 110/57 L Pulse Oximetry 99 99 100 01/10/18 16:00 01/10/18 18:00 Temperature 100.6 F H Pulse Rate 109 H 103 H Respiratory Rate 18 Blood Pressure 100/57 L Pulse Oximetry 98 Intake & Output 01/10/18 01/10/18 01/11/18 06:59 18:59 06:59 Intake Total 868 / 868 1342 / 1342 Output Total 1600 / 1600 1100 / 1100 Balance -732 / -732 242 / 242 Weight 78.8 kg Intake: IV 148 / 148 500 / 500 Heparin/D5W 25,000 U/250 mL 25, 148 / 148 50 / 50 000 unit In 250 ml @ 1,000 UNITS/HR 10 mls/hr IV.CONT TITRATE PRN Rx#:[id number] Primaxin Inj 500 MG In NS Inj 200 / 200 100 ML @ 200 mls/hr IV.SIG Q8H EDE Rx#:[id number] Vancomycin Inj 1,000 MG In NS 250 / 250 Inj 250 ML @ 250 mls/hr IV.SIG Q18H EDE Rx#:[id number] Oral 0 / 0 Tube Feeding 720 / 720 842 / 842 Output: Stool 400 / 400 Urine Amount (Catheter) 550 / 550 550 / 550 Indwelling Urethral Catheter 550 / 550 550 / 550 Chest Tube Drainage 650 / 650 550 / 550 Left 300 / 300 350 / 350 Right Mid-Axillary Chest 350 / 350 200 / 200 Other: Date of Last Bowel Movement 01/10/18 01/10/18 # Bowel Movements 2 # Incontinent Bowel Movements 2 01/09/18 12:15 Blood - Peripheral Aerobic Blood Culture - Preliminary Yeast species 01/09/18 12:15 Blood - Peripheral Anaerobic Blood Culture - Preliminary No growth in 1 day 01/03/18 17:00 Fluid - Pleural fluid Fungal Smear - Final No fungal elements seen 01/03/18 17:00 Fluid - Pleural fluid Fungal Culture - Preliminary No growth in 1 week 01/03/18 17:00 Fluid - Pleural fluid Acid Fast Bacilli Smear - Final No acid fast bacilli seen 01/03/18 17:00 Fluid - Pleural fluid Mycobacterial Culture - Preliminary No growth in 1 week 01/09/18 10:25 Catheterized Urine Urine Culture - Preliminary No growth in 24 hours 01/09/18 12:25 Blood - Peripheral Aerobic Blood Culture - Preliminary No growth in 1 day 01/09/18 12:25 Blood - Peripheral Anaerobic Blood Culture - Preliminary No growth in 1 day Lab - Hematology Results 01/09/18 01/10/18 12:15 06:38 WBC 17.0 H 15.6 H RBC 3.12 L 3.07 L Hgb 8.8 L 8.7 L Hct 28.6 L 28.0 L MCV 91.5 91.2 MCH 28.2 28.5 MCHC 30.8 L 31.3 L RDW 20.1 H 20.7 H Plt Count 418 433 MPV 8.8 9.2 Neut % (Auto) 72.1 H 67.3 Lymph % (Auto) 20.3 24.4 [place] % (Auto) 6.7 7.3 Eos % (Auto) 0.3 0.6 Baso % (Auto) 0.6 0.4 Neut # (Auto) 12.3 H 10.5 H Lymph # (Auto) 3.5 3.8 [place] # (Auto) 1.1 H 1.1 H Eos # (Auto) 0.0 0.1 Baso # (Auto) 0.1 0.1 WBC Differential . . Differential Comment Auto diff final Auto diff final Lab - Chemistry Results 01/08/18 01/09/18 01/09/18 23:31 05:45 12:00 Sodium Potassium Chloride Carbon Dioxide Anion Gap BUN Creatinine Estimated GFR POC Glucose 236 H 267 H 243 H Random Glucose Calcium Total Bilirubin AST ALT Alkaline Phosphatase Total Protein Albumin 01/09/18 01/09/18 01/10/18 17:45 19:44 00:08 Sodium Potassium Chloride Carbon Dioxide Anion Gap BUN Creatinine Estimated GFR POC Glucose 229 H 228 H 231 H Random Glucose Calcium Total Bilirubin AST ALT Alkaline Phosphatase Total Protein Albumin 01/10/18 01/10/18 01/10/18 06:19 06:35 11:10 Sodium 146 H Potassium 5.1 Chloride 113 H Carbon Dioxide 24.9 Anion Gap 8 BUN 50 H Creatinine 1.47 H Estimated GFR 46 L POC Glucose 227 H 241 H Random Glucose 196 H Calcium 8.3 L Total Bilirubin 0.4 AST 33 ALT 23 Alkaline Phosphatase 163 H Total Protein 7.8 D Albumin 1.3 L 01/10/18 18:04 Sodium Potassium Chloride Carbon Dioxide Anion Gap BUN Creatinine Estimated GFR POC Glucose 222 H Random Glucose Calcium Total Bilirubin AST ALT Alkaline Phosphatase Total Protein Albumin Imaging: ITS Impressions Head MRI 01/02/18 00:00 CONCLUSION: 1. 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 2. Cerebral atrophy and chronic ischemic small vessel vasculopathy. Chest CT 01/03/18 00:00 CONCLUSION: 1. Large bilateral pleural effusions occupying more than half of the right and left hemithorax. Chest X-Ray 01/09/18 15:48 CONCLUSION: Cardiomegaly and findings of congestive heart failure. There has been no significant change when compared to the prior exam. Physical Exam: GENERAL: Patient is 77 yo on Tpiece SKIN: Warm and dry. No rash HEAD: Normocephalic. EYES: No scleral icterus. No injection or drainage. NECK: Supple, trachea midline. + trach in place with large amount of drainage CARDIOVASCULAR: RRR. No murmurs, rubs, gallops RESPIRATORY: Breath sounds equal bilaterally. No accessory muscle use. R siede CT in place with serosang drainage GASTROINTESTINAL: Abdomen soft, non-tender, nondistended. +PEG tube in place MUSCULOSKELETAL: No cyanosis, or edema. GUl; garcia in place with yellow urine Neuro: Opens eyes spontaneously, does not track, follows simple commands IV line sites with no e.o infection. Assessment and Plan - Plan Sacral decub with possible underlying infection, osteomyelitis. Prior h/o ESBL E.coli on 10/24/2017. Possible HCAP GNR UTI ? ESBL given h/o ESBL. 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 Encephalopathy: strokes in hospital, optic neuritis on presentation. New issue: fungemia Recs: Continue Imipenem IV dc vancomycin start micafungin will need to repeat BC change all lines 2 D echo change garcia chk UA, C+S Follow thoracentesis cultures Follow clinically. Sacral decub has eschar with possible underlying osteomyelitis. Patient family refused surgical debridement. Dw patients daughter. paola RN
[2018-01-10 21:21] LABS: Bacteria,Urine Occasional /hpf; Bilirubin,Urine Negative (Negative); Clarity,Urine Cloudy (Clear); Color,Urine Amber (Yellw/Straw); Glucose,Urine (UA) 50 mg/dL (Negative); Leukocyte Esterase,Urine Large (Negative); Nitrite,Urine Negative (Negative); Specific Gravity,Urine 1.018 (1.002-1.035); Urobilinogen,Urine 4 or Greater mg/dL (Less than 2)
[2018-01-10] MEDS: Micafungin Inj 150 MG in Sodium Chlor 0.9% Inj 100 ML IV.SIG SCH (21:24)
[2018-01-11] MEDS: Insulin NovoLIN Regular Correctional Sugar Inj SQ SCH ×4 (00:18→17:59)
[2018-01-11 08:24] LABS: Activated Partial Thrombo Time 37.4 sec (24.3-30.1); INR 2.3 Ratio; Prothrombin Time 23.4 sec (9.8-11.6)
--- NOTE | 2018-01-11 08:33 | P.PNIM ---
Subjective Interval history: f/u; sepsis/ respiratory failure in no acute distress. still with encephalopathy. Tmax 100.6. d/w the RN and no acute issues over night. Physical Exam Vital signs: Vital Signs 01/10/18 08:35 01/10/18 09:00 01/10/18 10:00 Temperature Pulse Rate 113 H 115 H Respiratory Rate Blood Pressure 114/64 108/59 L Pulse Oximetry 98 98 97 01/10/18 11:00 01/10/18 12:00 01/10/18 13:00 Temperature 98.6 F Pulse Rate 117 H 114 H 112 H Respiratory Rate Blood Pressure 118/66 112/59 L 109/61 Pulse Oximetry 98 100 99 01/10/18 14:00 01/10/18 15:00 01/10/18 16:00 Temperature 100.6 F H Pulse Rate 109 H 111 H 109 H Respiratory Rate 18 Blood Pressure 107/56 L 110/57 L 100/57 L Pulse Oximetry 99 100 98 01/10/18 17:00 01/10/18 18:00 01/10/18 19:00 Temperature Pulse Rate 106 H 106 H 104 H Respiratory Rate Blood Pressure 91/54 L 99/57 L 100/54 L Pulse Oximetry 95 95 94 L 01/10/18 20:00 01/10/18 21:00 01/10/18 21:01 Temperature 99.1 F Pulse Rate 104 H 103 H 102 H Respiratory Rate 22 Blood Pressure 92/55 L 92/54 L Pulse Oximetry 95 99 99 01/10/18 22:00 01/10/18 22:01 01/10/18 23:00 Temperature Pulse Rate 109 H 107 H 109 H Respiratory Rate Blood Pressure 120/58 L 110/58 L Pulse Oximetry 100 70 L 100 01/11/18 00:00 01/11/18 02:00 01/11/18 04:00 Temperature 98.8 F Pulse Rate 109 H 104 H 108 H Respiratory Rate Blood Pressure 112/56 L Pulse Oximetry 100 100 01/11/18 06:00 01/11/18 08:08 Temperature Pulse Rate 109 H 108 H Respiratory Rate 18 Blood Pressure Pulse Oximetry 95 Intake & Output 01/10/18 01/11/18 01/11/18 18:59 06:59 18:59 Intake Total 1342 / 1342 1169 / 1169 Output Total 1100 / 1100 618 / 618 Balance 242 / 242 551 / 551 Weight 79.3 kg Intake: IV 500 / 500 300 / 300 Heparin/D5W 25,000 U/250 mL 25, 50 / 50 000 unit In 250 ml @ 1,000 UNITS/HR 10 mls/hr IV.CONT TITRATE PRN Rx#:[id number] Primaxin Inj 500 MG In NS Inj 200 / 200 200 / 200 100 ML @ 200 mls/hr IV.SIG Q8H EDE Rx#:[id number] Mycamine Inj 150 MG In NS Inj 100 / 100 100 ML @ 100 mls/hr IV.SIG Q24H EDE Rx#:[id number] Vancomycin Inj 1,000 MG In NS 250 / 250 Inj 250 ML @ 250 mls/hr IV.SIG Q18H EDE Rx#:[id number] Tube Feeding 842 / 842 809 / 809 Water Bolus Amount 60 / 60 Output: Urine Amount (Catheter) 550 / 550 450 / 450 Indwelling Urethral Catheter 550 / 550 450 / 450 Chest Tube Drainage 550 / 550 168 / 168 Left 350 / 350 144 / 144 Right Mid-Axillary Chest 200 / 200 24 / 24 Other: Date of Last Bowel Movement 01/10/18 01/11/18 # Bowel Movements 4 # Incontinent Bowel Movements 4 - Constitutional no acute distress - Routine Respiratory Exam Present: CTA bilaterally - Routine Cardiovascular Exam Present: RRR - Routine Abdominal Exam Present: soft (PEG in place.) - Routine Extremities Exam Comments: no pedal edema. - Routine Neurological Exam Present: altered mental status - Urinary Catheter Management Straight Cath placed during this visit: yes Urethral indwelling: Yes Reason for continuing: Severe pressure ulcer/wound Insertion date: 01/09/18 Insertion time: 08:00 Indwelling Urethral Catheter Cath placed during this visit: yes Reason for continuing: Acute urinary retention Insertion date: 01/01/18 Insertion time: 16:30 Results - Labs CBC & Chem 7: 01/10/18 06:38 01/10/18 06:35 Laboratory Results - last 24 hr 01/10/18 01/10/18 01/10/18 11:10 18:04 20:15 PT INR APTT POC Glucose 241 H 222 H Urine Color [place] Urine Clarity Cloudy H Urine pH 5.0 Ur Specific [place] 1.018 Urine Protein 100 H Urine Glucose (UA) 50 Urine Ketones Trace Urine Occult Blood Negative Urine Nitrate Negative Urine Bilirubin Negative Urine Urobilinogen 4 or greater Ur Leukocyte Esterase Large H Urine RBC 2 Urine WBC 88 H Urine WBC Clumps Rare H Urine Bacteria Occasional H Micro UA Comment Cath-culture ind Urine Culture Comments Cath-cult indicated 01/10/18 01/11/18 01/11/18 23:41 05:51 07:00 PT 23.4 H INR 2.3 APTT 37.4 H D POC Glucose 181 H 214 H Urine Color Urine Clarity Urine pH Ur Specific [place] Urine Protein Urine Glucose (UA) Urine Ketones Urine Occult Blood Urine Nitrate Urine Bilirubin Urine Urobilinogen Ur Leukocyte Esterase Urine RBC Urine WBC Urine WBC Clumps Urine Bacteria Micro UA Comment Urine Culture Comments Microbiology 01/09/18 12:15 Blood - Peripheral Aerobic Blood Culture - Preliminary Yeast species 01/09/18 12:15 Blood - Peripheral Anaerobic Blood Culture - Preliminary No growth in 1 day 01/03/18 17:00 Fluid - Pleural fluid Fungal Smear - Final No fungal elements seen 01/03/18 17:00 Fluid - Pleural fluid Fungal Culture - Preliminary No growth in 1 week 01/03/18 17:00 Fluid - Pleural fluid Acid Fast Bacilli Smear - Final No acid fast bacilli seen 01/03/18 17:00 Fluid - Pleural fluid Mycobacterial Culture - Preliminary No growth in 1 week 01/09/18 10:25 Catheterized Urine Urine Culture - Preliminary No growth in 24 hours 01/09/18 12:25 Blood - Peripheral Aerobic Blood Culture - Preliminary No growth in 1 day 01/09/18 12:25 Blood - Peripheral Anaerobic Blood Culture - Preliminary No growth in 1 day Assessment and Plan - Assessment (1) Encephalopathy Code(s): G93.40 - Encephalopathy, unspecified Status: Acute (2) CVA (cerebral vascular accident) Code(s): I63.9 - Cerebral infarction, unspecified Status: Acute (3) Wound of sacral region Code(s): S31.000A - Unspecified open wound of lower back and pelvis without penetration into retroperitoneum, initial encounter Status: Acute (4) NSTEMI (non-ST elevated myocardial infarction) Code(s): I21.4 - Non-ST elevation (NSTEMI) myocardial infarction Status: Resolved (5) Anemia Code(s): D64.9 - Anemia, unspecified Status: Acute (6) Respiratory failure with hypoxia and hypercapnia Code(s): J96.91 - Respiratory failure, unspecified with hypoxia; J96.92 - Respiratory failure, unspecified with hypercapnia Status: Resolved (7) Optic neuritis Code(s): H46.9 - Unspecified optic neuritis Status: Resolved - Plan Acute on chronic resp failure s/p trach/PEG CVA Anemia s/p NSTEMI Optic neuritis - neurology and Dr. Pereira has seen patient with encephalopathy, seizures, L ENID infarct. Status post systemic TPA on November 09 Repeat MRI unchanged; EEG with diffuse encephalopathy on coumadin, statin on Ritalin, Keppra Neuropsychology is following Optic neuritis. Status post treatment with IV hydrocortisone Encephalopathy persists New FEver- t max 100.6.this am Recurrent UTI - WBC in urine 72, large leukocyte esterase (specimen is from the new garcia) Prior history of ESBL E. coli- Healthcare associated pneumonia with Klebsiella and ESBL E. coli Bialteral Pleural effusion- pigtail catheters in place - changed garcia- catheter today 01/09 - cultures from pleural fluid- no growth x 72 hours -repeat blood cultures pending. - ff repat urine cultures - ESBL E. coli +blood cultures on 10/24. Completed course of antibiotics. - Urine culture on December 10 with Pseudomonas, pansensitive. Cipro stopped 12/17 -ID -Dr. Mariza Estrada following -currently on Imipenen Sacral decub with possible underlying infection, osteomyelitis. - Sacral decub has eschar with possible underlying osteomyelitis. Patient family refused surgical debridement. 12/31 Wound cx: ESBL E.coli Skin Scrotal Edema/ulcerations Has been evaluated by Urology: continue with clean intermittent catheter as needed, scrotal elevation Sacral wound -Seen by Plastic surgery; debridement declined per patient's family -Wound care is following- apply dressings per wound management recommendations CV: NSTEMI Echo 10/19: LV systolic function is moderately reduced, EF 40-45%. Cardiology following- Dr. Hernández on Coreg and statin Pulm: Continue with TP keep sat >92% Trach changed from cuffless to size 6 on 12/31 Bronchodilators, ICU vent bundle Pulm toilet, trach care Large bilateral effusions on CT chest. Right-sided pigtail chest tube placed 01/03/2018, 1.35 L output since placement Pleural fluid studies consistent with transudative effusion ff output GI Continue tube feeds-Glucerna 1.5 with goal rate 60ml/hr On Pepcid 10mg BID : chronic kidney insufficiency Heme: Anemia GI bleed; Status post EGD colonoscopy. GI has signed off, patient with healed rectal ulcers and hemorrhoids. Endo DM type 2 - A1C 9.6 On SSI for glycemic control continue on glucerna TF GI prophylaxis- on Pepcid DVT prophylaxis-on coumadin - transfer to floor. d/w the RN. (5) Anemia Qualifiers: Anemia type: unspecified type Qualified Code(s): D64.9 - Anemia, unspecified
[2018-01-11] MEDS: Insulin Detemir Inj 1,000 UNIT/10 ML Vial SQ SCH ×2 (09:21→20:47)
[2018-01-11] MEDS: Famotidine 20 MG Tablet PO SCH ×2 (09:22→20:47)
[2018-01-11] MEDS: Polyethylene Glycol 3350 17 GM Packet PO SCH (10:35)
[2018-01-11] MEDS: Methylphenidate HCl 5 MG Tablet PO SCH ×2 (10:46→14:07)
[2018-01-11] MEDS ORDERED: Vancomycin Inj 1,000 MG in Sodium Chlor 0.9% Inj 250 ML IV.SIG SCH (14:00)
[2018-01-11] MEDS: Collagenase Oint 30 GM Tube TOPICAL SCH (14:06)
[2018-01-11] MEDS: Hydrocortisone Acetate 25 MG Supp RECTAL SCH ×2 (16:40→20:49)
[2018-01-11] MEDS: Chlorhexidine 0.12% Oral Kit 15 ML UDC SWISH-SPIT SCH ×2 (16:40→20:48)
--- NOTE | 2018-01-11 17:21 | P.PNID ---
Subjective Remarks: chart reviewe, interim prtogress noted is a 77-year-old male of descent possibly from [place] with past medical history significant for hypertension and diabetes. Patient presented to the emergency department with complaints of 10 day history of blurry vision in his right eye with associated pain to the right synagogue. History of cataract surgery 6 weeks ago. His symptoms got progressively worse over the last 10 days so he decided to come in. He complains of blurry vision, tenderness to palpation of his right synagogue as well as pain in brushing his hair. Patient reports no jaw claudication normalities or unintentional weight loss. He went to [facility] and saw handcrew foreman Dr. Zimmerman who sent him to the ED to rule out orbital pseudotumor or temporal arteritis. MRI of the orbits show edema involving the right optic nerve. An MRA of the brain showed severe diffuse atherosclerotic disease. Inflammatory markers were ESR of 12, CRP of 0.51. Patient receives Solu-Medrol to 50 mg IV in the emergency room. Patient reportedly was doing okay and observed in the ICU. Patient was seen by allergist immunologist Dr. Diaz who is thinking of doing a temporal artery biopsy and thinks this possibly could be giant cell arteritis. And recommended continuing IV Solu-Medrol. Overnight on October 24, 2017 patient developed signs and symptoms suggestive of sepsis and a sepsis alert was called. The 19 hospitalists ordered sepsis workup including blood and urine cultures. The blood cultures are positive for ESBL E. coli and urine cultures are positive for gram-negative. Patient has been started on empiric Zosyn IV. Blood cultures have now been reported as ESBL based on Klaus gene testing. Clinically patient appears to be deteriorating on Zosyn IV as well making this more likely an ESBL E. coli infection. Infectious diseases initially followed for E. coli ESBL bacteremia and UTI. His hospital course was complicated by Vent dependence, Pneumonia and PSAE UTI. Patient had a fever on 12/15/2017 he had blood cultures done which are negative. Other workup negative so far. Yeast in blood C. tropicalis afebrile WBC 15 K UA abnormmal with large LE and pyuria Antibiotics: micafungin Imipenem IV Lines: periferal Lines ok Past Medical History: reviewed Allergies/Adverse Reactions: Allergies No Known Allergies Allergy (Verified 12/25/17 11:22) Objective Vital Signs 01/10/18 18:00 01/10/18 19:00 01/10/18 20:00 Temperature 99.1 F Pulse Rate 106 H 104 H 104 H Respiratory Rate Blood Pressure 99/57 L 100/54 L 92/55 L Pulse Oximetry 95 94 L 95 01/10/18 21:00 01/10/18 21:01 01/10/18 22:00 Temperature Pulse Rate 103 H 102 H 109 H Respiratory Rate 22 Blood Pressure 92/54 L Pulse Oximetry 99 99 100 01/10/18 22:01 01/10/18 23:00 01/11/18 00:00 Temperature 98.8 F Pulse Rate 107 H 109 H 109 H Respiratory Rate Blood Pressure 120/58 L 110/58 L 112/56 L Pulse Oximetry 70 L 100 100 01/11/18 01:00 01/11/18 02:00 01/11/18 03:00 Temperature Pulse Rate 107 H 104 H 105 H Respiratory Rate Blood Pressure 97/57 L 102/59 L 96/55 L Pulse Oximetry 98 97 97 01/11/18 04:00 01/11/18 04:03 01/11/18 05:00 Temperature Pulse Rate 108 H 108 H 111 H Respiratory Rate Blood Pressure 101/50 L 117/66 Pulse Oximetry 94 L 93 L 93 L 01/11/18 06:00 01/11/18 07:00 01/11/18 08:00 Temperature 98.3 F Pulse Rate 109 H 106 H 108 H Respiratory Rate Blood Pressure 109/61 106/60 109/60 Pulse Oximetry 93 L 98 95 01/11/18 08:08 01/11/18 09:00 01/11/18 10:00 Temperature Pulse Rate 108 H 110 H 108 H Respiratory Rate 18 Blood Pressure 111/60 114/60 Pulse Oximetry 95 100 100 01/11/18 11:00 01/11/18 12:00 01/11/18 13:00 Temperature 98.7 F Pulse Rate 108 H 108 H 112 H Respiratory Rate Blood Pressure 111/58 L 109/56 L Pulse Oximetry 100 100 100 01/11/18 13:09 01/11/18 14:00 01/11/18 16:00 Temperature 98.7 F Pulse Rate 110 H 109 H 59 L Respiratory Rate 18 Blood Pressure 115/61 110/59 L 125/55 L Pulse Oximetry 100 100 96 Intake & Output 01/10/18 01/11/18 01/11/18 18:59 06:59 18:59 Intake Total 1342 / 1342 1169 / 1169 100 / 100 Output Total 1100 / 1100 618 / 618 Balance 242 / 242 551 / 551 100 / 100 Weight 79.3 kg Intake: IV 500 / 500 300 / 300 100 / 100 Heparin/D5W 25,000 U/250 mL 25, 50 / 50 000 unit In 250 ml @ 1,000 UNITS/HR 10 mls/hr IV.CONT TITRATE PRN Rx#:[id number] Primaxin Inj 500 MG In NS Inj 200 / 200 200 / 200 100 / 100 100 ML @ 200 mls/hr IV.SIG Q8H EDE Rx#:[id number] Mycamine Inj 150 MG In NS Inj 100 / 100 100 ML @ 100 mls/hr IV.SIG Q24H EDE Rx#:[id number] Vancomycin Inj 1,000 MG In NS 250 / 250 Inj 250 ML @ 250 mls/hr IV.SIG Q18H EDE Rx#:[id number] Tube Feeding 842 / 842 809 / 809 Water Bolus Amount 60 / 60 Output: Urine Amount (Catheter) 550 / 550 450 / 450 Indwelling Urethral Catheter 550 / 550 450 / 450 Chest Tube Drainage 550 / 550 168 / 168 Left 350 / 350 144 / 144 Right Mid-Axillary Chest 200 / 200 24 / 24 Other: Date of Last Bowel Movement 01/10/18 01/11/18 01/11/18 # Bowel Movements 4 # Incontinent Bowel Movements 4 01/04/18 12:45 Fluid - Pleural fluid Acid Fast Bacilli Smear - Final No acid fast bacilli seen 01/04/18 12:45 Fluid - Pleural fluid Mycobacterial Culture - Preliminary No growth in 1 week 01/09/18 12:15 Blood - Peripheral Aerobic Blood Culture - Final Xenia tropicalis 01/09/18 12:15 Blood - Peripheral Anaerobic Blood Culture - Preliminary No growth in 2 days 01/10/18 20:15 Catheterized Urine Urine Culture - Preliminary No growth in 24 hours 01/09/18 12:25 Blood - Peripheral Aerobic Blood Culture - Preliminary No growth in 2 days 01/09/18 12:25 Blood - Peripheral Anaerobic Blood Culture - Preliminary No growth in 2 days 01/09/18 10:25 Catheterized Urine Urine Culture - Final No growth in 48 hours 01/11/18 06:55 Blood - Peripheral Aerobic Blood Culture - Pending 01/11/18 06:55 Blood - Peripheral Anaerobic Blood Culture - Pending 01/11/18 07:00 Blood - Peripheral Aerobic Blood Culture - Pending 01/11/18 07:00 Blood - Peripheral Anaerobic Blood Culture - Pending 01/03/18 17:00 Fluid - Pleural fluid Fungal Smear - Final No fungal elements seen 01/03/18 17:00 Fluid - Pleural fluid Fungal Culture - Preliminary No growth in 1 week 01/03/18 17:00 Fluid - Pleural fluid Acid Fast Bacilli Smear - Final No acid fast bacilli seen 01/03/18 17:00 Fluid - Pleural fluid Mycobacterial Culture - Preliminary No growth in 1 week Lab - Hematology Results 01/10/18 06:38 WBC 15.6 H RBC 3.07 L Hgb 8.7 L Hct 28.0 L MCV 91.2 MCH 28.5 MCHC 31.3 L RDW 20.7 H Plt Count 433 MPV 9.2 Neut % (Auto) 67.3 Lymph % (Auto) 24.4 [place] % (Auto) 7.3 Eos % (Auto) 0.6 Baso % (Auto) 0.4 Neut # (Auto) 10.5 H Lymph # (Auto) 3.8 [place] # (Auto) 1.1 H Eos # (Auto) 0.1 Baso # (Auto) 0.1 WBC Differential . Differential Comment Auto diff final Lab - Chemistry Results 01/09/18 01/09/18 01/10/18 17:45 19:44 00:08 Sodium Potassium Chloride Carbon Dioxide Anion Gap BUN Creatinine Estimated GFR POC Glucose 229 H 228 H 231 H Random Glucose Calcium Total Bilirubin AST ALT Alkaline Phosphatase Total Protein Albumin 01/10/18 01/10/18 01/10/18 06:19 06:35 11:10 Sodium 146 H Potassium 5.1 Chloride 113 H Carbon Dioxide 24.9 Anion Gap 8 BUN 50 H Creatinine 1.47 H Estimated GFR 46 L POC Glucose 227 H 241 H Random Glucose 196 H Calcium 8.3 L Total Bilirubin 0.4 AST 33 ALT 23 Alkaline Phosphatase 163 H Total Protein 7.8 D Albumin 1.3 L 01/10/18 01/10/18 01/11/18 18:04 23:41 05:51 Sodium Potassium Chloride Carbon Dioxide Anion Gap BUN Creatinine Estimated GFR POC Glucose 222 H 181 H 214 H Random Glucose Calcium Total Bilirubin AST ALT Alkaline Phosphatase Total Protein Albumin 01/11/18 14:03 Sodium Potassium Chloride Carbon Dioxide Anion Gap BUN Creatinine Estimated GFR POC Glucose 251 H Random Glucose Calcium Total Bilirubin AST ALT Alkaline Phosphatase Total Protein Albumin Imaging: ITS Impressions Head MRI 01/02/18 00:00 CONCLUSION: 1. 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 2. Cerebral atrophy and chronic ischemic small vessel vasculopathy. Chest CT 01/03/18 00:00 CONCLUSION: 1. Large bilateral pleural effusions occupying more than half of the right and left hemithorax. Chest X-Ray 01/09/18 15:48 CONCLUSION: Cardiomegaly and findings of congestive heart failure. There has been no significant change when compared to the prior exam. Physical Exam: GENERAL: Patient is 77 yo on Tpiece SKIN: Warm and dry. No rash HEAD: Normocephalic. EYES: No scleral icterus. No injection or drainage. NECK: Supple, trachea midline. + trach in place with large amount of drainage CARDIOVASCULAR: RRR. No murmurs, rubs, gallops RESPIRATORY: Breath sounds equal bilaterally. No accessory muscle use. b/l CT in place with serous drainage GASTROINTESTINAL: Abdomen soft, non-tender, nondistended. +PEG tube in place MUSCULOSKELETAL: No cyanosis, or edema. GUl; garcia in place with yellow urine Neuro: Obtundeed, eyes closed, not follows IV line sites with no e.o infection. Assessment and Plan - Plan Sacral decub with possible underlying infection, osteomyelitis. Prior h/o ESBL E.coli on 10/24/2017. Possible HCAP GNR UTI ? ESBL given h/o ESBL. 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 Encephalopathy: strokes in hospital, optic neuritis on presentation. New issue: fungemia Recs: Continue Imipenem IV cont micafungin will need to repeat BC change all lines 2 D echo change garcia chk UA, C+S fu clx Follow thoracentesis cultures change jose - paola guevara RN
--- NOTE | 2018-01-11 18:21 | P.PN ---
Subjective Interval history: Awake but no response to commands. On a T Bar FIo2 35 %. Trach site was clean Physical Exam Vital signs: Vital Signs 01/10/18 19:00 01/10/18 20:00 01/10/18 21:00 Temperature 99.1 F Pulse Rate 104 H 104 H 103 H Respiratory Rate Blood Pressure 100/54 L 92/55 L 92/54 L Pulse Oximetry 94 L 95 99 01/10/18 21:01 01/10/18 22:00 01/10/18 22:01 Temperature Pulse Rate 102 H 109 H 107 H Respiratory Rate 22 Blood Pressure 120/58 L Pulse Oximetry 99 100 70 L 01/10/18 23:00 01/11/18 00:00 01/11/18 01:00 Temperature 98.8 F Pulse Rate 109 H 109 H 107 H Respiratory Rate Blood Pressure 110/58 L 112/56 L 97/57 L Pulse Oximetry 100 100 98 01/11/18 02:00 01/11/18 03:00 01/11/18 04:00 Temperature Pulse Rate 104 H 105 H 108 H Respiratory Rate Blood Pressure 102/59 L 96/55 L Pulse Oximetry 97 97 94 L 01/11/18 04:03 01/11/18 05:00 01/11/18 06:00 Temperature Pulse Rate 108 H 111 H 109 H Respiratory Rate Blood Pressure 101/50 L 117/66 109/61 Pulse Oximetry 93 L 93 L 93 L 01/11/18 07:00 01/11/18 08:00 01/11/18 08:08 Temperature 98.3 F Pulse Rate 106 H 108 H 108 H Respiratory Rate 18 Blood Pressure 106/60 109/60 Pulse Oximetry 98 95 95 01/11/18 09:00 01/11/18 10:00 01/11/18 11:00 Temperature Pulse Rate 110 H 108 H 108 H Respiratory Rate Blood Pressure 111/60 114/60 111/58 L Pulse Oximetry 100 100 100 01/11/18 12:00 01/11/18 13:00 01/11/18 13:09 Temperature 98.7 F Pulse Rate 108 H 112 H 110 H Respiratory Rate Blood Pressure 109/56 L 115/61 Pulse Oximetry 100 100 100 01/11/18 14:00 01/11/18 16:00 01/11/18 17:54 Temperature 98.7 F Pulse Rate 109 H 59 L 105 H Respiratory Rate 18 Blood Pressure 110/59 L 125/55 L Pulse Oximetry 100 96 Intake & Output 01/10/18 01/11/18 01/11/18 18:59 06:59 18:59 Intake Total 1342 / 1342 1169 / 1169 920 / 920 Output Total 1100 / 1100 618 / 618 966 / 966 Balance 242 / 242 551 / 551 -46 / -46 Weight 79.3 kg Intake: IV 500 / 500 300 / 300 100 / 100 Heparin/D5W 25,000 U/250 mL 25, 50 / 50 000 unit In 250 ml @ 1,000 UNITS/HR 10 mls/hr IV.CONT TITRATE PRN Rx#:[id number] Primaxin Inj 500 MG In NS Inj 200 / 200 200 / 200 100 / 100 100 ML @ 200 mls/hr IV.SIG Q8H EDE Rx#:[id number] Mycamine Inj 150 MG In NS Inj 100 / 100 100 ML @ 100 mls/hr IV.SIG Q24H EDE Rx#:[id number] Vancomycin Inj 1,000 MG In NS 250 / 250 Inj 250 ML @ 250 mls/hr IV.SIG Q18H EDE Rx#:[id number] Oral 0 / 0 Tube Feeding 842 / 842 809 / 809 700 / 700 Tube Irrigant 60 / 60 Water Bolus Amount 60 / 60 60 / 60 Output: Urine 600 / 600 Emesis 1 / 1 Urine Amount (Catheter) 550 / 550 450 / 450 Indwelling Urethral Catheter 550 / 550 450 / 450 Chest Tube Drainage 550 / 550 168 / 168 365 / 365 Left 350 / 350 144 / 144 260 / 260 Right Mid-Axillary Chest 200 / 200 24 / 24 105 / 105 Other: # Voids 0 # Incontinent Voids 0 Date of Last Bowel Movement 01/10/18 01/11/18 01/11/18 # Bowel Movements 4 # Incontinent Bowel Movements 4 Narrative: Subjective Interval history: VSS , doesn't appear in distress. No events overnight INR is therapeutic x 2 days . DC heparin . Monitro INR, continue coumadin Physical Exam GENERAL: In bed chronically ill elderly male, appears in no distress at this time. Opens eyes when calling his name. EYES: No scleral icterus. No injection or drainage. NECK: Trach in place. Supple, trachea midline. No JVD or lymphadenopathy. CARDIOVASCULAR: Regular rate and rhythm without murmurs, gallops, or rubs. RESPIRATORY: Breath sounds equal bilaterally. Occ basal crackles.No accessory muscle use. GASTROINTESTINAL: PEG tube in place. Abdomen soft, non-tender, nondistended. MUSCULOSKELETAL: No cyanosis, or edema. BACK: With decub ulcer. Nontender without obvious deformity. NEURO: opens eyes with calling his name. Weak in all Extremities. - Urinary Catheter Management Straight Cath placed during this visit: yes Urethral indwelling: Yes Reason for continuing: Severe pressure ulcer/wound Insertion date: 01/09/18 Insertion time: 08:00 Indwelling Urethral Catheter Cath placed during this visit: yes Reason for continuing: Severe pressure ulcer/wound Insertion date: 01/11/18 Insertion time: 16:18 Results - Labs CBC & Chem 7: 01/10/18 06:38 01/10/18 06:35 Laboratory Results - last 24 hr 01/10/18 01/10/18 01/10/18 18:04 20:15 23:41 PT INR APTT POC Glucose 222 H 181 H Urine Color Deepti Urine Clarity Cloudy H Urine pH 5.0 Ur Specific [place] 1.018 Urine Protein 100 H Urine Glucose (UA) 50 Urine Ketones Trace Urine Occult Blood Negative Urine Nitrate Negative Urine Bilirubin Negative Urine Urobilinogen 4 or greater Ur Leukocyte Esterase Large H Urine RBC 2 Urine WBC 88 H Urine WBC Clumps Rare H Urine Bacteria Occasional H Micro UA Comment Cath-culture ind Urine Culture Comments Cath-cult indicated 01/11/18 01/11/18 01/11/18 05:51 07:00 14:03 PT 23.4 H INR 2.3 APTT 37.4 H D POC Glucose 214 H 251 H Urine Color Urine Clarity Urine pH Ur Specific [place] Urine Protein Urine Glucose (UA) Urine Ketones Urine Occult Blood Urine Nitrate Urine Bilirubin Urine Urobilinogen Ur Leukocyte Esterase Urine RBC Urine WBC Urine WBC Clumps Urine Bacteria Micro UA Comment Urine Culture Comments 01/11/18 17:46 PT INR APTT POC Glucose 266 H Urine Color Urine Clarity Urine pH Ur Specific [place] Urine Protein Urine Glucose (UA) Urine Ketones Urine Occult Blood Urine Nitrate Urine Bilirubin Urine Urobilinogen Ur Leukocyte Esterase Urine RBC Urine WBC Urine WBC Clumps Urine Bacteria Micro UA Comment Urine Culture Comments Microbiology 01/04/18 12:45 Fluid - Pleural fluid Acid Fast Bacilli Smear - Final No acid fast bacilli seen 01/04/18 12:45 Fluid - Pleural fluid Mycobacterial Culture - Preliminary No growth in 1 week 01/09/18 12:15 Blood - Peripheral Aerobic Blood Culture - Final Xenai tropicalis 01/09/18 12:15 Blood - Peripheral Anaerobic Blood Culture - Preliminary No growth in 2 days 01/10/18 20:15 Catheterized Urine Urine Culture - Preliminary No growth in 24 hours 01/09/18 12:25 Blood - Peripheral Aerobic Blood Culture - Preliminary No growth in 2 days 01/09/18 12:25 Blood - Peripheral Anaerobic Blood Culture - Preliminary No growth in 2 days 01/09/18 10:25 Catheterized Urine Urine Culture - Final No growth in 48 hours Assessment and Plan - Assessment (1) Wound of sacral region Code(s): S31.000A - Unspecified open wound of lower back and pelvis without penetration into retroperitoneum, initial encounter Status: Acute (2) CVA (cerebral vascular accident) Code(s): I63.9 - Cerebral infarction, unspecified Status: Acute Plan: PT Evaluation for activity (3) Encephalopathy Code(s): G93.40 - Encephalopathy, unspecified Status: Acute (4) NSTEMI (non-ST elevated myocardial infarction) Code(s): I21.4 - Non-ST elevation (NSTEMI) myocardial infarction Status: Resolved (5) Anemia Code(s): D64.9 - Anemia, unspecified Status: Acute Plan: CBC,BMP (6) Respiratory failure with hypoxia and hypercapnia Code(s): J96.91 - Respiratory failure, unspecified with hypoxia; J96.92 - Respiratory failure, unspecified with hypercapnia Status: Resolved Plan: Duonebs q6h. CPAP at HS if sats <90. (7) Optic neuritis Code(s): H46.9 - Unspecified optic neuritis Status: Resolved (8) Major neurocognitive disorder due to vascular disease, without behavioral disturbance, severe Code(s): F01.50 - Vascular dementia without behavioral disturbance Status: Acute (9) Status post tracheostomy Code(s): Z93.0 - Tracheostomy status Status: Acute Plan: T Bar at 35 % and Aerosol. Trach suction and lavage. (10) Status post tracheostomy Code(s): Z93.0 - Tracheostomy status Status: Acute Plan: PM valve to talk PRN. (5) Anemia Qualifiers: Anemia type: unspecified type Qualified Code(s): D64.9 - Anemia, unspecified
[2018-01-11] MEDS: Micafungin Inj 150 MG in Sodium Chlor 0.9% Inj 100 ML IV.SIG SCH (20:48)
[2018-01-12] MEDS: Insulin NovoLIN Regular Correctional Sugar Inj SQ SCH ×4 (01:03→18:12)
[2018-01-12] MEDS ORDERED: Pharmacy Ordered Lab Info OTHER ONE ×2 (01:45→13:45)
[2018-01-12 05:58] LABS: Baso # (Auto) 0.1 th/mm3 (0.0-0.2); Baso % (Auto) 0.6 % (0.0-2.0); Eos # (Auto) 0.4 th/mm3 (0.0-0.4); Eos % (Auto) 3.3 % (0.0-4.0); Hematocrit 25.3 % (39.0-51.0); Lymph # (Auto) 3.3 th/mm3 (1.0-4.8); Lymph % (Auto) 27.9 % (9.0-44.0); Mean Corpuscular HGB Conc 31.6 % (32.0-36.0); Mean Corpuscular Hemoglobin 28.5 pg (27.0-34.0); Mean Corpuscular Volume 90.1 fL (80.0-100.0); Mean Platelet Volume 8.9 fL (7.0-11.0); Mono % (Auto) 8.6 % (0.0-8.0); Neut % (Auto) 59.6 % (16.0-70.0); Platelet Count 382 th/mm3 (150-450); Red Blood Count 2.81 mil/mm3 (4.50-5.90); Red Cell Distribution Width 19.9 % (11.6-17.2); White Blood Count 11.7 th/mm3 (4.0-11.0)
[2018-01-12 06:14] LABS: Activated Partial Thrombo Time 40.6 sec (24.3-30.1); INR 2.8 Ratio; Prothrombin Time 28.3 sec (9.8-11.6)
[2018-01-12 06:17] LABS: Calcium 8.9 mg/dL (8.5-10.1); Carbon Dioxide 25.1 meq/L (21.0-32.0)
[2018-01-12] MEDS: Chlorhexidine 0.12% Oral Kit 15 ML UDC SWISH-SPIT SCH (09:32)
--- NOTE | 2018-01-12 09:41 | P.PNIM ---
Subjective Interval history: in no acute distress. remains afebrile. d/w the RN and no acute issues over night. Physical Exam Vital signs: Vital Signs 01/11/18 10:00 01/11/18 11:00 01/11/18 12:00 Temperature 98.7 F Pulse Rate 108 H 108 H 108 H Respiratory Rate Blood Pressure 114/60 111/58 L 109/56 L Pulse Oximetry 100 100 100 01/11/18 13:00 01/11/18 13:09 01/11/18 14:00 Temperature Pulse Rate 112 H 110 H 109 H Respiratory Rate Blood Pressure 115/61 110/59 L Pulse Oximetry 100 100 100 01/11/18 16:00 01/11/18 17:54 01/11/18 20:00 Temperature 98.7 F 98.7 F Pulse Rate 59 L 105 H 103 H Respiratory Rate 18 18 Blood Pressure 125/55 L 108/60 Pulse Oximetry 96 98 01/11/18 20:28 01/11/18 20:29 01/11/18 22:00 Temperature Pulse Rate 105 H 106 H Respiratory Rate 20 Blood Pressure Pulse Oximetry 97 01/11/18 23:36 01/12/18 00:00 01/12/18 02:00 Temperature 98.1 F Pulse Rate 101 H 103 H Respiratory Rate 18 Blood Pressure 109/58 L Pulse Oximetry 97 96 01/12/18 04:00 01/12/18 04:09 01/12/18 06:00 Temperature 98.2 F Pulse Rate 105 H 103 H Respiratory Rate 20 Blood Pressure 115/64 Pulse Oximetry 96 97 01/12/18 07:00 01/12/18 08:00 Temperature 98.0 F Pulse Rate 108 H Respiratory Rate 18 Blood Pressure 120/64 Pulse Oximetry 96 96 Intake & Output 01/11/18 01/12/18 01/12/18 18:59 06:59 18:59 Intake Total 1020 / 1020 950 / 950 Output Total 966 / 966 820 / 820 Balance 54 / 54 130 / 130 Weight 79.3 kg Intake: IV 200 / 200 200 / 200 Primaxin Inj 500 MG In NS Inj 200 / 200 100 / 100 100 ML @ 200 mls/hr IV.SIG Q8H EDE Rx#:[id number] Mycamine Inj 150 MG In NS Inj 100 / 100 100 ML @ 100 mls/hr IV.SIG Q24H EDE Rx#:[id number] Oral 0 / 0 Tube Feeding 700 / 700 600 / 600 Tube Irrigant 60 / 60 150 / 150 Water Bolus Amount 60 / 60 Output: Urine 600 / 600 Emesis 1 / 1 Urine Amount (Catheter) 700 / 700 Indwelling Urethral Catheter 700 / 700 Chest Tube Drainage 365 / 365 120 / 120 Left 260 / 260 60 / 60 Right Mid-Axillary Chest 105 / 105 60 / 60 Other: # Voids 0 # Incontinent Voids 0 Date of Last Bowel Movement 01/11/18 01/11/18 01/11/18 - Constitutional no acute distress - Routine Respiratory Exam Present: CTA bilaterally - Routine Cardiovascular Exam Present: RRR - Routine Abdominal Exam Present: soft - Routine Extremities Exam Comments: no pedal edema. - Urinary Catheter Management Straight Cath placed during this visit: yes Urethral indwelling: Yes Reason for continuing: Severe pressure ulcer/wound Insertion date: 01/09/18 Insertion time: 08:00 Indwelling Urethral Catheter Cath placed during this visit: yes Reason for continuing: Severe pressure ulcer/wound Insertion date: 01/11/18 Insertion time: 16:18 Results - Labs CBC & Chem 7: 01/12/18 05:29 01/12/18 05:29 Laboratory Results - last 24 hr 01/11/18 01/11/18 01/12/18 14:03 17:46 01:01 WBC RBC Hgb Hct MCV MCH MCHC RDW Plt Count MPV Neut % (Auto) Lymph % (Auto) [place] % (Auto) Eos % (Auto) Baso % (Auto) Neut # (Auto) Lymph # (Auto) [place] # (Auto) Eos # (Auto) Baso # (Auto) WBC Differential Differential Comment PT INR APTT Sodium Potassium Chloride Carbon Dioxide Anion Gap BUN Creatinine Estimated GFR POC Glucose 251 H 266 H 180 H Random Glucose Calcium 01/12/18 01/12/18 01/12/18 05:29 05:29 05:29 WBC 11.7 H RBC 2.81 L Hgb 8.0 L Hct 25.3 L MCV 90.1 MCH 28.5 MCHC 31.6 L RDW 19.9 H Plt Count 382 MPV 8.9 Neut % (Auto) 59.6 Lymph % (Auto) 27.9 [place] % (Auto) 8.6 H Eos % (Auto) 3.3 Baso % (Auto) 0.6 Neut # (Auto) 7.0 Lymph # (Auto) 3.3 [place] # (Auto) 1.0 H Eos # (Auto) 0.4 Baso # (Auto) 0.1 WBC Differential . Differential Comment Auto diff final PT 28.3 H INR 2.8 APTT 40.6 H Sodium 151 H Potassium 5.0 Chloride 117 H Carbon Dioxide 25.1 Anion Gap 9 BUN 59 H Creatinine 1.41 H Estimated GFR 49 L POC Glucose Random Glucose 161 H Calcium 8.9 01/12/18 05:43 WBC RBC Hgb Hct MCV MCH MCHC RDW Plt Count MPV Neut % (Auto) Lymph % (Auto) [place] % (Auto) Eos % (Auto) Baso % (Auto) Neut # (Auto) Lymph # (Auto) [place] # (Auto) Eos # (Auto) Baso # (Auto) WBC Differential Differential Comment PT INR APTT Sodium Potassium Chloride Carbon Dioxide Anion Gap BUN Creatinine Estimated GFR POC Glucose 177 H Random Glucose Calcium Microbiology 01/04/18 12:45 Fluid - Pleural fluid Acid Fast Bacilli Smear - Final No acid fast bacilli seen 01/04/18 12:45 Fluid - Pleural fluid Mycobacterial Culture - Preliminary No growth in 1 week 01/09/18 12:15 Blood - Peripheral Aerobic Blood Culture - Final Xenia tropicalis 01/09/18 12:15 Blood - Peripheral Anaerobic Blood Culture - Preliminary No growth in 2 days 01/10/18 20:15 Catheterized Urine Urine Culture - Preliminary No growth in 24 hours 01/09/18 12:25 Blood - Peripheral Aerobic Blood Culture - Preliminary No growth in 2 days 01/09/18 12:25 Blood - Peripheral Anaerobic Blood Culture - Preliminary No growth in 2 days 01/09/18 10:25 Catheterized Urine Urine Culture - Final No growth in 48 hours Assessment and Plan - Assessment (1) Encephalopathy Code(s): G93.40 - Encephalopathy, unspecified Status: Acute (2) CVA (cerebral vascular accident) Code(s): I63.9 - Cerebral infarction, unspecified Status: Acute (3) Wound of sacral region Code(s): S31.000A - Unspecified open wound of lower back and pelvis without penetration into retroperitoneum, initial encounter Status: Acute (4) NSTEMI (non-ST elevated myocardial infarction) Code(s): I21.4 - Non-ST elevation (NSTEMI) myocardial infarction Status: Resolved (5) Anemia Code(s): D64.9 - Anemia, unspecified Status: Acute (6) Respiratory failure with hypoxia and hypercapnia Code(s): J96.91 - Respiratory failure, unspecified with hypoxia; J96.92 - Respiratory failure, unspecified with hypercapnia Status: Resolved (7) Optic neuritis Code(s): H46.9 - Unspecified optic neuritis Status: Resolved - Plan Acute on chronic resp failure s/p trach/PEG CVA Anemia s/p NSTEMI Optic neuritis - neurology and Dr. Pereira has seen patient with encephalopathy, seizures, L ENID infarct. Status post systemic TPA on November 09 Repeat MRI unchanged; EEG with diffuse encephalopathy on coumadin, statin on Ritalin, Les[place] Neuropsychology is following Optic neuritis. Status post treatment with IV hydrocortisone Encephalopathy persists Recurrent UTI Prior history of ESBL E. coli- Healthcare associated pneumonia with Klebsiella and ESBL E. coli Bialteral Pleural effusion- pigtail catheters in place - changed garcia- catheter today 01/09 - cultures from pleural fluid- no growth x 72 hours -repeat blood cultures from 01/11 pending. - Urine culture on December 10 with Pseudomonas, pansensitive. Cipro stopped 12/17 -ID -following -currently on Imipenen Sacral decub with possible underlying infection, osteomyelitis. - Sacral decub has eschar with possible underlying osteomyelitis. Patient family refused surgical debridement. 12/31 Wound cx: ESBL E.coli currently on Imipenem and Micafungin Skin Scrotal Edema/ulcerations Has been evaluated by Urology: continue with clean intermittent catheter as needed, scrotal elevation Sacral wound -Seen by Plastic surgery; debridement declined per patient's family -Wound care is following- apply dressings per wound management recommendations CV: NSTEMI Echo 10/19: LV systolic function is moderately reduced, EF 40-45%. Cardiology following- Dr. Hernández on Coreg and statin Pulm: Continue with TP keep sat >92% Trach changed from cuffless to size 6 on 12/31 Bronchodilators, ICU vent bundle Pulm toilet, trach care Large bilateral effusions on CT chest. Right-sided pigtail chest tube placed 01/03/2018, 1.35 L output since placement Pleural fluid studies consistent with transudative effusion ff output GI Continue tube feeds-Glucerna 1.5 with goal rate 60ml/hr On Pepcid 10mg BID : chronic kidney insufficiency Hypernatremia will give free water via PEG BMP tomorrow. Heme: Anemia GI bleed; Status post EGD colonoscopy. GI has signed off, patient with healed rectal ulcers and hemorrhoids. Endo DM type 2 - A1C 9.6 On SSI for glycemic control continue on glucerna TF GI prophylaxis- on Pepcid DVT prophylaxis-on coumadin - for transfer to floor. d/w the RN. (5) Anemia Qualifiers: Anemia type: unspecified type Qualified Code(s): D64.9 - Anemia, unspecified
[2018-01-12] MEDS: Polyethylene Glycol 3350 17 GM Packet PO SCH (13:48)
[2018-01-12] MEDS: Insulin Detemir Inj 1,000 UNIT/10 ML Vial SQ SCH (13:48)
[2018-01-12] MEDS: Famotidine 20 MG Tablet PO SCH (13:48)
[2018-01-12] MEDS: Methylphenidate HCl 5 MG Tablet PO SCH ×2 (13:49)
[2018-01-12] MEDS: Hydrocortisone Acetate 25 MG Supp RECTAL SCH (13:49)
[2018-01-12] MEDS: Collagenase Oint 30 GM Tube TOPICAL SCH (13:49)
--- NOTE | 2018-01-12 16:46 | P.PNID ---
Subjective Remarks: chart reviewe, interim prtogress noted seen earlier today essentially unresponsive Yeast in blood C. tropicalis afebrile repeat blood clx neg @ 1 day urine clx negaive Antibiotics: micafungin Imipenem IV Lines: periferal Lines ok Past Medical History: reviewed Allergies/Adverse Reactions: Allergies No Known Allergies Allergy (Verified 12/25/17 11:22) Objective Vital Signs 01/11/18 17:54 01/11/18 20:00 01/11/18 20:28 Temperature 98.7 F Pulse Rate 105 H 103 H Respiratory Rate 18 Blood Pressure 108/60 Pulse Oximetry 98 97 01/11/18 20:29 01/11/18 22:00 01/11/18 23:36 Temperature Pulse Rate 105 H 106 H Respiratory Rate 20 Blood Pressure Pulse Oximetry 97 01/12/18 00:00 01/12/18 02:00 01/12/18 04:00 Temperature 98.1 F 98.2 F Pulse Rate 101 H 103 H 105 H Respiratory Rate 18 20 Blood Pressure 109/58 L 115/64 Pulse Oximetry 96 96 01/12/18 04:09 01/12/18 06:00 01/12/18 07:00 Temperature Pulse Rate 103 H Respiratory Rate Blood Pressure Pulse Oximetry 97 96 01/12/18 08:00 01/12/18 10:00 01/12/18 12:00 Temperature 98.0 F 97 F L Pulse Rate 108 H 97 H 100 H Respiratory Rate 18 18 Blood Pressure 120/64 118/70 Pulse Oximetry 96 98 01/12/18 13:58 Temperature Pulse Rate 100 H Respiratory Rate Blood Pressure Pulse Oximetry Intake & Output 01/11/18 01/12/18 01/12/18 18:59 06:59 18:59 Intake Total 1020 / 1020 950 / 950 200 / 200 Output Total 966 / 966 820 / 820 Balance 54 / 54 130 / 130 200 / 200 Weight 79.3 kg Intake: IV 200 / 200 200 / 200 200 / 200 Primaxin Inj 500 MG In NS Inj 200 / 200 100 / 100 200 / 200 100 ML @ 200 mls/hr IV.SIG Q8H EDE Rx#:[id number] Mycamine Inj 150 MG In NS Inj 100 / 100 100 ML @ 100 mls/hr IV.SIG Q24H EDE Rx#:[id number] Oral 0 / 0 Tube Feeding 700 / 700 600 / 600 Tube Irrigant 60 / 60 150 / 150 Water Bolus Amount 60 / 60 Output: Urine 600 / 600 Emesis Urine Amount (Catheter) 700 / 700 Indwelling Urethral Catheter 700 / 700 Chest Tube Drainage 365 / 365 120 / 120 Left 260 / 260 60 / 60 Right Mid-Axillary Chest 105 / 105 60 / 60 Other: # Voids 0 # Incontinent Voids 0 Date of Last Bowel Movement 01/11/18 01/11/18 01/11/18 01/11/18 06:55 Blood - Peripheral Aerobic Blood Culture - Preliminary No growth in 1 day 01/11/18 06:55 Blood - Peripheral Anaerobic Blood Culture - Preliminary No growth in 1 day 01/11/18 07:00 Blood - Peripheral Aerobic Blood Culture - Preliminary No growth in 1 day 01/11/18 07:00 Blood - Peripheral Anaerobic Blood Culture - Preliminary No growth in 1 day 01/09/18 12:25 Blood - Peripheral Aerobic Blood Culture - Preliminary No growth in 3 days 01/09/18 12:25 Blood - Peripheral Anaerobic Blood Culture - Preliminary No growth in 3 days 01/09/18 12:15 Blood - Peripheral Aerobic Blood Culture - Final Xenia tropicalis 01/09/18 12:15 Blood - Peripheral Anaerobic Blood Culture - Preliminary No growth in 3 days 01/10/18 20:15 Catheterized Urine Urine Culture - Final No growth in 48 hours 01/04/18 12:45 Fluid - Pleural fluid Acid Fast Bacilli Smear - Final No acid fast bacilli seen 01/04/18 12:45 Fluid - Pleural fluid Mycobacterial Culture - Preliminary No growth in 1 week 01/09/18 10:25 Catheterized Urine Urine Culture - Final No growth in 48 hours 01/03/18 17:00 Fluid - Pleural fluid Fungal Smear - Final No fungal elements seen 01/03/18 17:00 Fluid - Pleural fluid Fungal Culture - Preliminary No growth in 1 week 01/03/18 17:00 Fluid - Pleural fluid Acid Fast Bacilli Smear - Final No acid fast bacilli seen 01/03/18 17:00 Fluid - Pleural fluid Mycobacterial Culture - Preliminary No growth in 1 week Lab - Hematology Results 01/12/18 05:29 WBC 11.7 H RBC 2.81 L Hgb 8.0 L Hct 25.3 L MCV 90.1 MCH 28.5 MCHC 31.6 L RDW 19.9 H Plt Count 382 MPV 8.9 Neut % (Auto) 59.6 Lymph % (Auto) 27.9 [place] % (Auto) 8.6 H Eos % (Auto) 3.3 Baso % (Auto) 0.6 Neut # (Auto) 7.0 Lymph # (Auto) 3.3 [place] # (Auto) 1.0 H Eos # (Auto) 0.4 Baso # (Auto) 0.1 WBC Differential . Differential Comment Auto diff final Lab - Chemistry Results 01/10/18 01/10/18 01/11/18 18:04 23:41 05:51 Sodium Potassium Chloride Carbon Dioxide Anion Gap BUN Creatinine Estimated GFR POC Glucose 222 H 181 H 214 H Random Glucose Calcium 01/11/18 01/11/18 01/12/18 14:03 17:46 01:01 Sodium Potassium Chloride Carbon Dioxide Anion Gap BUN Creatinine Estimated GFR POC Glucose 251 H 266 H 180 H Random Glucose Calcium 01/12/18 01/12/18 05:29 05:43 Sodium 151 H Potassium 5.0 Chloride 117 H Carbon Dioxide 25.1 Anion Gap 9 BUN 59 H Creatinine 1.41 H Estimated GFR 49 L POC Glucose 177 H Random Glucose 161 H Calcium 8.9 Imaging: ITS Impressions Head MRI 01/02/18 00:00 CONCLUSION: 1. 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 2. Cerebral atrophy and chronic ischemic small vessel vasculopathy. Chest CT 01/03/18 00:00 CONCLUSION: 1. Large bilateral pleural effusions occupying more than half of the right and left hemithorax. Chest X-Ray 01/09/18 15:48 CONCLUSION: Cardiomegaly and findings of congestive heart failure. There has been no significant change when compared to the prior exam. Physical Exam: GENERAL: Patient is 77 yo on Tpiece SKIN: Warm and dry. No rash HEAD: Normocephalic. EYES: No scleral icterus. No injection or drainage. NECK: Supple, trachea midline. + trach in place with large amount of drainage CARDIOVASCULAR: RRR. No murmurs, rubs, gallops RESPIRATORY: Breath sounds equal bilaterally. No accessory muscle use. b/l CT in place with serous drainage GASTROINTESTINAL: Abdomen soft, non-tender, nondistended. +PEG tube in place MUSCULOSKELETAL: No cyanosis, or edema. GUl; garcia in place with yellow urine Neuro: Obtundeed, eyes closed, not follows IV line sites with no e.o infection. Assessment and Plan - Plan Sacral decub with possible underlying infection, osteomyelitis. Prior h/o ESBL E.coli on 10/24/2017. Possible HCAP GNR UTI ? ESBL given h/o ESBL. 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 Encephalopathy: strokes in hospital, optic neuritis on presentation. New issue: fungemia Recs: dc Imipenem IV cont micafungin will need to repeat BC 2 D echo change garcia change lines ophthalmology consult paola RN paola dghtr @ b/s
--- NOTE | 2018-01-12 18:05 | P.PN ---
Subjective Interval history: He is lethargic Physical Exam Vital signs: Vital Signs 01/11/18 20:00 01/11/18 20:28 01/11/18 20:29 Temperature 98.7 F Pulse Rate 103 H 105 H Respiratory Rate 18 20 Blood Pressure 108/60 Pulse Oximetry 98 97 01/11/18 22:00 01/11/18 23:36 01/12/18 00:00 Temperature 98.1 F Pulse Rate 106 H 101 H Respiratory Rate 18 Blood Pressure 109/58 L Pulse Oximetry 97 96 01/12/18 02:00 01/12/18 04:00 01/12/18 04:09 Temperature 98.2 F Pulse Rate 103 H 105 H Respiratory Rate 20 Blood Pressure 115/64 Pulse Oximetry 96 97 01/12/18 06:00 01/12/18 07:00 01/12/18 08:00 Temperature 98.0 F Pulse Rate 103 H 108 H Respiratory Rate 18 Blood Pressure 120/64 Pulse Oximetry 96 96 01/12/18 10:00 01/12/18 12:00 01/12/18 13:58 Temperature 97 F L Pulse Rate 97 H 100 H 100 H Respiratory Rate 18 Blood Pressure 118/70 Pulse Oximetry 98 Intake & Output 01/11/18 01/12/18 01/12/18 18:59 06:59 18:59 Intake Total 1020 / 1020 950 / 950 200 / 200 Output Total 966 / 966 820 / 820 Balance 54 / 54 130 / 130 200 / 200 Weight 79.3 kg Intake: IV 200 / 200 200 / 200 200 / 200 Primaxin Inj 500 MG In NS Inj 200 / 200 100 / 100 200 / 200 100 ML @ 200 mls/hr IV.SIG Q8H E[facility] Rx#:[id number] Mycamine Inj 150 MG In NS Inj 100 / 100 100 ML @ 100 mls/hr IV.SIG Q24H EDE Rx#:[id number] Oral 0 / 0 Tube Feeding 700 / 700 600 / 600 Tube Irrigant 60 / 60 150 / 150 Water Bolus Amount 60 / 60 Output: Urine 600 / 600 Emesis 1 / 1 Urine Amount (Catheter) 700 / 700 Indwelling Urethral Catheter 700 / 700 Chest Tube Drainage 365 / 365 120 / 120 Left 260 / 260 60 / 60 Right Mid-Axillary Chest 105 / 105 60 / 60 Other: # Voids 0 # Incontinent Voids 0 Date of Last Bowel Movement 01/11/18 01/11/18 01/11/18 Narrative: Physical Exam GENERAL: In bed chronically ill elderly male, appears in no distress at this time. EYES: No scleral icterus. No injection or drainage. NECK: Trach in place. Supple, trachea midline. No JVD or lymphadenopathy.T bar with trach. CARDIOVASCULAR: Regular rate and rhythm without murmurs, gallops, or rubs. RESPIRATORY: Breath sounds equal bilaterally. Occ basal crackles. GASTROINTESTINAL: PEG tube in place. Abdomen soft, non-tender, nondistended. MUSCULOSKELETAL: No cyanosis, omild edema. BACK: With decub ulcer. Nontender without obvious deformity. NEURO: opens eyes with calling his name. Weak in all Extremities. - Urinary Catheter Management Straight Cath placed during this visit: yes Urethral indwelling: Yes Reason for continuing: Severe pressure ulcer/wound Insertion date: 01/09/18 Insertion time: 08:00 Indwelling Urethral Catheter Cath placed during this visit: yes Reason for continuing: Severe pressure ulcer/wound Insertion date: 01/11/18 Insertion time: 16:18 Results - Labs CBC & Chem 7: 01/12/18 05:29 01/12/18 05:29 Laboratory Results - last 24 hr 01/12/18 01/12/18 01/12/18 01:01 05:29 05:29 WBC 11.7 H RBC 2.81 L Hgb 8.0 L Hct 25.3 L MCV 90.1 MCH 28.5 MCHC 31.6 L RDW 19.9 H Plt Count 382 MPV 8.9 Neut % (Auto) 59.6 Lymph % (Auto) 27.9 [place] % (Auto) 8.6 H Eos % (Auto) 3.3 Baso % (Auto) 0.6 Neut # (Auto) 7.0 Lymph # (Auto) 3.3 [place] # (Auto) 1.0 H Eos # (Auto) 0.4 Baso # (Auto) 0.1 WBC Differential . Differential Comment Auto diff final PT 28.3 H INR 2.8 APTT 40.6 H Sodium Potassium Chloride Carbon Dioxide Anion Gap BUN Creatinine Estimated GFR POC Glucose 180 H Random Glucose Calcium 01/12/18 01/12/18 01/12/18 05:29 05:43 17:51 WBC RBC Hgb Hct MCV MCH MCHC RDW Plt Count MPV Neut % (Auto) Lymph % (Auto) [place] % (Auto) Eos % (Auto) Baso % (Auto) Neut # (Auto) Lymph # (Auto) [place] # (Auto) Eos # (Auto) Baso # (Auto) WBC Differential Differential Comment PT INR APTT Sodium 151 H Potassium 5.0 Chloride 117 H Carbon Dioxide 25.1 Anion Gap 9 BUN 59 H Creatinine 1.41 H Estimated GFR 49 L POC Glucose 177 H 289 H Random Glucose 161 H Calcium 8.9 Microbiology 01/11/18 06:55 Blood - Peripheral Aerobic Blood Culture - Preliminary No growth in 1 day 01/11/18 06:55 Blood - Peripheral Anaerobic Blood Culture - Preliminary No growth in 1 day 01/11/18 07:00 Blood - Peripheral Aerobic Blood Culture - Preliminary No growth in 1 day 01/11/18 07:00 Blood - Peripheral Anaerobic Blood Culture - Preliminary No growth in 1 day 01/09/18 12:25 Blood - Peripheral Aerobic Blood Culture - Preliminary No growth in 3 days 01/09/18 12:25 Blood - Peripheral Anaerobic Blood Culture - Preliminary No growth in 3 days 01/09/18 12:15 Blood - Peripheral Aerobic Blood Culture - Final Xenia tropicalis 01/09/18 12:15 Blood - Peripheral Anaerobic Blood Culture - Preliminary No growth in 3 days 01/10/18 20:15 Catheterized Urine Urine Culture - Final No growth in 48 hours Assessment and Plan - Assessment (1) Wound of sacral region Code(s): S31.000A - Unspecified open wound of lower back and pelvis without penetration into retroperitoneum, initial encounter Status: Acute Plan: Wound management per team. Cont antibiotics per ID (2) CVA (cerebral vascular accident) Code(s): I63.9 - Cerebral infarction, unspecified Status: Acute Plan: Cont anticoagulants . Keppra and PT evaluation (3) Encephalopathy Code(s): G93.40 - Encephalopathy, unspecified Status: Acute Plan: PT evaluation (4) NSTEMI (non-ST elevated myocardial infarction) Code(s): I21.4 - Non-ST elevation (NSTEMI) myocardial infarction Status: Resolved (5) Anemia Code(s): D64.9 - Anemia, unspecified Status: Acute Plan: CBC,BMP (6) Respiratory failure with hypoxia and hypercapnia Code(s): J96.91 - Respiratory failure, unspecified with hypoxia; J96.92 - Respiratory failure, unspecified with hypercapnia Status: Resolved (7) Optic neuritis Code(s): H46.9 - Unspecified optic neuritis Status: Resolved Plan: T bar at 35 % and waen . PM valve as tolerated. Duneob nebs qid (8) Major neurocognitive disorder due to vascular disease, without behavioral disturbance, severe Code(s): F01.50 - Vascular dementia without behavioral disturbance Status: Acute (9) Status post tracheostomy Code(s): Z93.0 - Tracheostomy status Status: Acute Plan: Trach care and suction PRN (10) Status post tracheostomy Code(s): Z93.0 - Tracheostomy status Status: Acute (5) Anemia Qualifiers: Anemia type: unspecified type Qualified Code(s): D64.9 - Anemia, unspecified
--- NOTE | 2018-01-12 19:17 | ECHRPT ---
Indication: CONCLUSIONS The left ventricular systolic function is moderately reduced with an estimated ejection fraction in the range of 40-45%. Trace mitral valve regurgitation. There is mild tricuspid valve regurgitation. Trivial pulmonary valve regurgitation. BP: / HR: Rhythm: Sinus Technical Quality:Technically difficult study FINDINGS LEFT VENTRICLE Normal left ventricular size. Wall thickness is measured at the upper limits of normal. The left ventricular systolic function is moderately reduced with an estimated ejection fraction in the range of 40-45%. RIGHT VENTRICLE Normal right ventricular size and systolic function. LEFT ATRIUM The left atrial size is normal. RIGHT ATRIUM The right atrial size is normal. ATRIAL SEPTUM Normal atrial septal thickness. AORTA The aortic root and proximal ascending aorta are normal in size on limited imaging. MITRAL VALVE Grossly normal Trace mitral valve regurgitation. No mitral valve stenosis. AORTIC VALVE Aortic valve sclerosis is present. No aortic valve regurgitation. No aortic valve stenosis. TRICUSPID VALVE Grossly normal There is mild tricuspid valve regurgitation. The estimated pulmonary arterial pressure is 57 mmHg. PULMONARY VALVE Trivial pulmonary valve regurgitation. VESSELS The inferior vena cava was not well visualized. PERICARDIUM No pericardial effusion. Romie Flores DO (Electronically Signed) Final Date:12 January 2018 17:30
[2018-01-13] MEDS: Micafungin Inj 150 MG in Sodium Chlor 0.9% Inj 100 ML IV.SIG SCH (00:25)
[2018-01-13] MEDS: Acetaminophen 325 MG Tablet PO PRN ×3 (00:25→23:38)
[2018-01-13] MEDS: Famotidine 20 MG Tablet PO SCH ×3 (00:26→23:37)
[2018-01-13] MEDS: Chlorhexidine 0.12% Oral Kit 15 ML UDC SWISH-SPIT SCH ×3 (00:29→23:40)
[2018-01-13] MEDS: Hyoscyamine Liq Drops 0.125 MG/ML 15 ML Bottle SL PRN (00:42)
[2018-01-13] MEDS: Insulin NovoLIN Regular Correctional Sugar Inj SQ SCH ×4 (01:11→18:53)
[2018-01-13] MEDS: Insulin Detemir Inj 1,000 UNIT/10 ML Vial SQ SCH ×2 (01:12→13:09)
[2018-01-13] MEDS: Hydrocortisone Acetate 25 MG Supp RECTAL SCH ×3 (01:13→23:39)
[2018-01-13 07:01] LABS: Activated Partial Thrombo Time 39.2 sec (24.3-30.1); INR 2.7 Ratio; Prothrombin Time 26.9 sec (9.8-11.6)
[2018-01-13 07:19] LABS: Calcium 8.6 mg/dL (8.5-10.1); Carbon Dioxide 25.8 meq/L (21.0-32.0); Potassium 5.2 meq/L (3.5-5.1)
[2018-01-13] MEDS: Methylphenidate HCl 5 MG Tablet PO SCH ×2 (08:45→13:12)
--- NOTE | 2018-01-13 10:38 | P.PNIM ---
Subjective Interval history: (+) fever overnight, tmax 102.2, no changes in MS, tachycardic, discussed with daughter Physical Exam Vital signs: Vital Signs 01/12/18 12:00 01/12/18 13:58 01/12/18 20:00 Temperature 97 F L 99.6 F Pulse Rate 100 H 100 H 111 H Respiratory Rate 18 18 Blood Pressure 118/70 116/70 Pulse Oximetry 98 98 01/12/18 20:01 01/12/18 20:02 01/13/18 00:00 Temperature 102.2 F H Pulse Rate 100 H 122 H Respiratory Rate 18 18 Blood Pressure 114/61 Pulse Oximetry 98 97 01/13/18 01:49 01/13/18 04:00 01/13/18 08:00 Temperature 98 F 101.1 F H Pulse Rate 112 H 114 H Respiratory Rate 18 17 Blood Pressure 115/62 114/70 Pulse Oximetry 97 98 96 01/13/18 09:29 Temperature Pulse Rate 112 H Respiratory Rate 15 Blood Pressure Pulse Oximetry Intake & Output 01/12/18 01/13/18 01/13/18 18:59 06:59 18:59 Intake Total 200 / 200 Output Total 830 / 830 Balance 200 / 200 -830 / -830 Intake: IV 200 / 200 Primaxin Inj 500 MG In NS Inj 200 / 200 100 ML @ 200 mls/hr IV.SIG Q8H EDE Rx#:[id number] Output: Urine 800 / 800 Chest Tube Drainage 30 / 30 Left 0 / 0 Right Mid-Axillary Chest 30 / 30 Other: Date of Last Bowel Movement 01/11/18 Narrative: GENERAL: Not in distress NECK: Trach in place. T bar with trach. CARDIOVASCULAR: Tachycardic, rhythm without murmurs, gallops, or rubs. RESPIRATORY: Breath sounds equal bilaterally. GASTROINTESTINAL: PEG tube in place. Abdomen soft, non-tender, nondistended. MUSCULOSKELETAL: No cyanosis, mild edema. BACK: With decub ulcer. Nontender without obvious deformity. NEURO: Opens eyes with calling his name. Weak in all Extremities. ? Orientation - Urinary Catheter Management Straight Cath placed during this visit: yes Urethral indwelling: Yes Reason for continuing: Severe pressure ulcer/wound Insertion date: 01/09/18 Insertion time: 08:00 Indwelling Urethral Catheter Cath placed during this visit: yes Reason for continuing: Severe pressure ulcer/wound Insertion date: 01/11/18 Insertion time: 16:18 Results - Labs CBC & Chem 7: 01/12/18 05:29 01/13/18 05:26 Laboratory Results - last 24 hr 01/12/18 01/13/18 01/13/18 17:51 00:33 05:26 PT 26.9 H INR 2.7 APTT 39.2 H Sodium Potassium Chloride Carbon Dioxide Anion Gap BUN Creatinine Estimated GFR POC Glucose 289 H 260 H Random Glucose Calcium 01/13/18 01/13/18 05:26 06:33 PT INR APTT Sodium 152 H Potassium 5.2 H Chloride 118 H Carbon Dioxide 25.8 Anion Gap 8 BUN 61 H Creatinine 1.59 H Estimated GFR 42 L POC Glucose 222 H Random Glucose 203 H Calcium 8.6 Microbiology 01/11/18 06:55 Blood - Peripheral Aerobic Blood Culture - Preliminary No growth in 1 day 01/11/18 06:55 Blood - Peripheral Anaerobic Blood Culture - Preliminary No growth in 1 day 01/11/18 07:00 Blood - Peripheral Aerobic Blood Culture - Preliminary No growth in 1 day 01/11/18 07:00 Blood - Peripheral Anaerobic Blood Culture - Preliminary No growth in 1 day 01/09/18 12:25 Blood - Peripheral Aerobic Blood Culture - Preliminary No growth in 3 days 01/09/18 12:25 Blood - Peripheral Anaerobic Blood Culture - Preliminary No growth in 3 days 01/09/18 12:15 Blood - Peripheral Aerobic Blood Culture - Final Xenia tropicalis 01/09/18 12:15 Blood - Peripheral Anaerobic Blood Culture - Preliminary No growth in 3 days 01/10/18 20:15 Catheterized Urine Urine Culture - Final No growth in 48 hours Assessment and Plan - Assessment (1) Encephalopathy Code(s): G93.40 - Encephalopathy, unspecified Status: Acute (2) CVA (cerebral vascular accident) Code(s): I63.9 - Cerebral infarction, unspecified Status: Acute (3) Wound of sacral region Code(s): S31.000A - Unspecified open wound of lower back and pelvis without penetration into retroperitoneum, initial encounter Status: Acute (4) NSTEMI (non-ST elevated myocardial infarction) Code(s): I21.4 - Non-ST elevation (NSTEMI) myocardial infarction Status: Resolved (5) Anemia Code(s): D64.9 - Anemia, unspecified Status: Acute (6) Respiratory failure with hypoxia and hypercapnia Code(s): J96.91 - Respiratory failure, unspecified with hypoxia; J96.92 - Respiratory failure, unspecified with hypercapnia Status: Resolved (7) Optic neuritis Code(s): H46.9 - Unspecified optic neuritis Status: Resolved - Plan Acute on chronic resp failure s/p trach/PEG CVA Anemia s/p NSTEMI Optic neuritis - neurology and Dr. Pereira has seen patient with encephalopathy, seizures, L [place] infarct. Status post systemic TPA on November 09 Repeat MRI unchanged; EEG with diffuse encephalopathy -on coumadin, statin, Ritalin, Keppra. Neuropsychology following. Was on steroids for optic neuritis. Encephalopathy persists. Recurrent UTI-prior history of ESBL E. coli Healthcare associated pneumonia with Klebsiella and ESBL E. coli Bialteral Pleural effusion- pigtail catheters in place Sacral decub with possible underlying infection, osteomyelitis. Anemia - Sacral decub has eschar with possible underlying osteomyelitis. Patient family refused surgical debridement. Wound care and Dr. Upton following. -L[place] catheter changed 01/09/2018, pleural fluid culture negative to date. Urine culture on 01/09 grew Pseudomonas pansensitive,12/31 Wound cx: ESBL E.coli -Status post ciprofloxacin and imipenem. Still having fever, repeat BCx with yeas, continue micafungin per infectious disease. - echocardiogram on 01/12, no vegetation. Ophthalmology consult. Remove Left PIV. Recheck CXR. Scrotal Edema/ulcerations Has been evaluated by Urology: continue with clean intermittent catheter as needed, scrotal elevation Sacral wound -Seen by Plastic surgery; debridement declined per patient's family -Wound care is following- apply dressings per wound management recommendations NSTEMI Echo 10/19: LV systolic function is moderately reduced, EF 40-45%. is following, continue Coreg and statin. Acute on chronic respiratory failure status post tracheostomy, large bilateral effusion - Trach changed from cuffless to size 6 on 12/31, bronchodilators, pulmonary toilet. - Large bilateral effusions on CT chest. Right-sided pigtail chest tube placed 01/03/2018, Pleural fluid studies consistent with transudative effusion, culture negative. Chronic renal insufficiency-stable, monitor. Anemia secondary to GI bleed- Status post EGD colonoscopy. GI has signed off, patient with healed rectal ulcers and hemorrhoids. Continue Pepcid. DM type 2 - A1C 9.6, continue Levemir, increased to 8 units twice a day, sliding scale insulin and Glucerna. FEN Hypernatremia-continue free water, start half-normal saline, recheck BMP tomorrow Continue tube feeds-Glucerna 1.5 with goal rate 60ml/hr GI prophylaxis- on Pepcid DVT prophylaxis-on coumadin (5) Anemia Qualifiers: Anemia type: unspecified type Qualified Code(s): D64.9 - Anemia, unspecified
--- NOTE | 2018-01-13 10:49 | P.CONWOU ---
History of Present Illness Service: 01/13/18 Primary Care Provider: No Primary Care Physician Chief Complaint: Sacral Ulcer History of Present Illness: Wound care team with clinical writer and Bowen Ochoa Rn [facility] here for wound care rounds on the above patient. He remains on ventilator and is grimaces with tactile stimulation. Upon checking the sacrum stool was found in the wound which was covered and dated for today. Discussed with daughter and nurse that stool in the wound is a barrier to wound healing. PMFSH - Travel History History of Recent Travel: Yes (Patient flew from [place]) Medications and Allergies Active Medications: Active Medications Acetaminophen (Tylenol) 650 mg PO Q6H PRN PRN Reason: FEVER/PAIN SCALE 1 TO 2 Last Admin: 01/13/18 00:25 Dose: 650 mg Al Hydroxide/Mg Hydroxide (Milk Of Ayah Smith) 30 ml PO Q12H PRN PRN Reason: Mild constipation Albuterol (Duoneb Neb (Prn)) 1 ampul NEB Q2HR NEB PRN PRN Reason: SHORTNESS OF BREATH Atorvastatin Calcium (Llipitor) 80 mg PO [facility] Last Admin: 01/13/18 00:26 Dose: 80 mg Carvedilol (Coreg) 3.125 mg G-TUBE BID [facility] Chlorhexidine Gluconate (Peridex 0.12% Oral Kit) 15 ml SWISH-SPIT BID@0800, 2000 [facility] Last Admin: 01/13/18 00:29 Dose: Not Given Cod Liver Oil/Zinc Oxide (Desitin 40% Oint) 1 applicatio TOPICAL UNSCH PRN PRN Reason: DIAPER RASH Collagenase (Santyl Oint) 1 applicatio TOPICAL DAILY [facility] Last Admin: 01/12/18 13:49 Dose: 1 applicatio Dextrose (D50w Vial) 25 ml IV.PUSH UNSCH PRN PRN Reason: HYPOGLYCEMIA-SEE COMMENTS Doxazosin Mesylate (Cardura) 4 mg PO DAILY [facility] Last Admin: 12/31/17 09:52 Dose: Not Given Famotidine (Pepcid) 10 mg PO BID [facility] Last Admin: 01/13/18 00:26 Dose: 10 mg Glucagon (Glucagon Inj) 1 mg OTHER UNSCH PRN PRN Reason: HYPOGLYCEMIA - SEE COMMENTS Haloperidol Lactate (Haldol Inj) 5 mg IV.PUSH Q4H PRN PRN Reason: agitation Heparin Sodium (Porcine) (Heparin Inj) 1,000 units OTHER WITH DIALYSIS PRN PRN Reason: SEE LABEL COMMENTS Hydrocortisone Acetate (Hemorrhoidal Hc Supp) 25 mg RECTAL BID [facility] Last Admin: 01/13/18 01:13 Dose: 25 mg Hydromorphone HCl (Dilaudid Pf Inj) 0.5 mg IV.PUSH Q4H PRN PRN Reason: pain 8-10 or not taking po Last Admin: 01/09/18 02:47 Dose: 0.5 mg Hyoscyamine (Levsin Liq) 0.125 mg SL Q4H PRN PRN Reason: SECRETIONS Last Admin: 01/13/18 00:42 Dose: 0.125 mg Pharmacy Profile Note (Coumadin Consult Pharmacy) mls @ 0 mls/hr OTHER UNSCH [facility] Micafungin Sodium 150 mg/ (Sodium Chloride) 100 mls @ 100 mls/hr IV.SIG Q24H [facility] Last Admin: 01/13/18 00:25 Dose: 100 mls/hr Insulin Detemir (Levemir Inj) 5 unit SQ BID [facility] Last Admin: 01/13/18 01:12 Dose: 5 unit Insulin Human Regular (Novolin R Supplemental Scale) 0 units SQ Q6HR [facility]; Protocol Last Admin: 01/13/18 07:00 Dose: 4 units Ipratropium Haines (Atrovent Neb) 0.5 mg NEB BID NEB [facility] Last Admin: 01/13/18 09:30 Dose: 0.5 mg Ipratropium Haines (Atrovent Neb) 0.5 mg NEB Q4HR NEB PRN PRN Reason: WHEEZING Last Admin: 01/08/18 09:35 Dose: 0.5 mg Levetiracetam (Keppra Liq) 500 mg NG/OG BID [facility] Last Admin: 01/13/18 00:25 Dose: 500 mg Methylphenidate HCl (Ritalin) 10 mg PO BID@0800,1200 [facility] Last Admin: 01/12/18 13:49 Dose: 10 mg Metoclopramide HCl (Reglan Inj) 5 mg IV.PUSH Q8HR [facility] Last Admin: 01/13/18 06:20 Dose: 5 mg Miscellaneous (Pill Splitter) 1 each OTHER UNSCH PRN PRN Reason: SEE LABEL COMMENTS Ondansetron HCl (Zofran Inj) 4 mg IV.PUSH Q6H PRN PRN Reason: NAUSEA OR VOMITING Polyethylene Glycol (Miralax) 17 gm PO DAILY [facility] Last Admin: 01/12/18 13:48 Dose: Not Given Pramoxine HCl (Proctofoam) 1 applicatio RECTAL Q6HR [facility] Last Admin: 01/13/18 06:20 Dose: 1 applicatio Sennosides (Senokot) 17.2 mg PO Q12H PRN PRN Reason: Moderate constipation Sodium Chloride (Ns Flush) 2 ml IV.FLUSH UNSCH PRN PRN Reason: FLUSH AFTER USING IV ACCESS Last Admin: 01/10/18 08:18 Dose: 2 ml Sodium Chloride (Ns Flush) 2 ml IV.FLUSH BID [facility] Last Admin: 01/13/18 00:27 Dose: 2 ml Sodium Chloride (Ns Flush) 10 ml IV.FLUSH UNSCH PRN PRN Reason: SEE LABEL COMMENTS Last Admin: 01/11/18 20:49 Dose: 10 ml Warfarin Sodium (Coumadin) 5 mg G-TUBE DAILY@1600 [facility] Last Admin: 01/11/18 17:57 Dose: 5 mg Allergies Allergy/AdvReac Type Severity Reaction Status Date / Time Glucerna 1.5 AdvReac Vomiting Uncoded 02/09/18 12:04 Home Medications Medication Instructions Recorded Confirmed Type Actrapid 80 SUB-Q BID 12/25/17 History loperamide 2 mg PO DIRECTED PRN 12/25/17 12/25/17 History nepafenac 1 drp OPHTHALMIC (EYE) 12/25/17 History tobramycin-dexamethasone [TobraDex] 1 drp OPHTHALMIC (EYE) 12/25/17 12/25/17 History Physical Exam Vital signs: Vital Signs 01/12/18 12:00 01/12/18 13:58 01/12/18 20:00 Temperature 97 F L 99.6 F Pulse Rate 100 H 100 H 111 H Respiratory Rate 18 18 Blood Pressure 118/70 116/70 Pulse Oximetry 98 98 01/12/18 20:01 01/12/18 20:02 01/13/18 00:00 Temperature 102.2 F H Pulse Rate 100 H 122 H Respiratory Rate 18 18 Blood Pressure 114/61 Pulse Oximetry 98 97 01/13/18 01:49 01/13/18 04:00 01/13/18 08:00 Temperature 98 F 101.1 F H Pulse Rate 112 H 114 H Respiratory Rate 18 17 Blood Pressure 115/62 114/70 Pulse Oximetry 97 98 96 01/13/18 09:29 Temperature Pulse Rate 112 H Respiratory Rate 15 Blood Pressure Pulse Oximetry Intake & Output 01/12/18 01/13/18 01/13/18 18:59 06:59 18:59 Intake Total 200 / 200 Output Total 830 / 830 Balance 200 / 200 -830 / -830 Intake: IV 200 / 200 Primaxin Inj 500 MG In NS Inj 200 / 200 100 ML @ 200 mls/hr IV.SIG Q8H [facility] Rx#:[id number] Output: Urine 800 / 800 Chest Tube Drainage 30 30 Left 0 / 0 Right Mid-Axillary Chest 30 Other: Date of Last Bowel Movement 01/11/18 - Urinary Catheter Management Straight Cath placed during this visit: yes Urethral indwelling: Yes Reason for continuing: Severe pressure ulcer/wound Insertion date: 01/09/18 Insertion time: 08:00 Indwelling Urethral Catheter Cath placed during this visit: yes Reason for continuing: Severe pressure ulcer/wound Insertion date: 01/11/18 Insertion time: 16:18 Wound/Pressure Injury - Patient Status Premedicated for Pain Prior to Dressing Change: No - Wound Sacrum Wound Staging: Unstageable Wound Assessment: Ongoing Wound Type: Pressure Injury Is This a Chronic Wound: Yes Requested from Provider a Wound Care Consult: No Length (cm): 10 (cm) Width (cm): 7 (cm) Depth (cm): 0 (eschar) Wound Bed Appearance: Necrotic Surrounding Tissue Appearance: Erythema Surrounding Tissue Temperature: Warm Drainage Description: Serosanguinous Drainage Amount: Minimal Drainage Odor: No Odor Dressing Status: Changed Cleansing Solution: Saline Topical: Enzymatic Debridement Ointment Wound Packing Type: Gauze Pads Primary Dressing: primapore dressing Cover Dressing: Adhesive Dressing Wound Dressing Change Date: 01/06/18 Scrotum Wound Assessment: Ongoing Wound Type: Maceration Is This a Chronic Wound: Yes Requested from Provider a Wound Care Consult: Yes Wound Bed Appearance: [place] Surrounding Tissue Appearance: Erythema Surrounding Tissue Temperature: Warm Drainage Description: Serous Drainage Amount: None Drainage Odor: No Odor Dressing Status: Open to Air Cleansing Solution: Saline Topical: calazime Wound Dressing Change Date: 12/28/17 Right Calf Wound Assessment: Ongoing Wound Type: Maceration Length (cm): 2 Width (cm): 2 Dressing Status: Open to Air - Additional Information Wound dimensions this week are 9.4cmx9.2cmx1.9cm( measured from distal end with fascia ;Wound was cleaned with normal saline and dressed with nickel thick santyl and moistened gauzwe Incision - Patient Status Premedicated for Pain Prior to Dressing Change: No Assessment and Plan - Assessment (1) Diabetes Code(s): E11.9 - Type 2 diabetes mellitus without complications Status: Acute (2) Optic neuritis Code(s): H46.9 - Unspecified optic neuritis Status: Acute (3) Pleural effusion Code(s): J90 - Pleural effusion, not elsewhere classified Status: Acute - Plan 01/13/18: Wound dimensions this week are 9.4cmx9.2cmx1.9cm at the distal edge with fascia with eschar. Wound cleaned with normal saline and dressed with nickel thick Santyl and covered with moistened gauze and border gauze. Stool in wound is a barrier to wound healing. Discussed with nurse and daughter
[2018-01-13] MEDS: Polyethylene Glycol 3350 17 GM Packet PO SCH (12:47)
[2018-01-13] MEDS: Collagenase Oint 30 GM Tube TOPICAL SCH (12:48)
[2018-01-13] MEDS: Sodium Chloride 0.45 % Inj 1,000 ML IV.CONT SCH (12:48)
--- NOTE | 2018-01-13 13:43 | XR ---
EXAM DATE: 01/13/2018 1:36 PM EDT AGE/SEX: 77 years / Male INDICATIONS: Pneumonia. CLINICAL DATA: This is the patient's initial encounter. Patient reports that signs and symptoms have been present for 2 months and indicates a pain score of Nonresponsive. MEDICAL/SURGICAL HISTORY: Diabetes mellitus type II. hypertension Coronary artery stent. COMPARISON: [facility] [place], CHEST 1V SINGLE AP, 01/09/2018. . FINDINGS: Small bore bibasilar chest tubes remain in place. There is no evidence of pneumothorax Patchy airspace disease is evident throughout both lungs. Minimal residual effusions are noted. Heart and mediastinal silhouette are stable. Tracheostomy tube remains in place. CONCLUSION: Decrease opacity in the lung bases following chest tube placement indicative of pleural fluid evacuat ion. No evidence of pneumothorax. Bilateral diffuse patchy airspace disease Electronically signed by: Gagan Walker MD 01/13/2018 1:41 PM EDT
--- NOTE | 2018-01-13 16:05 | P.PN ---
Subjective Interval history: Pt diagnosed with Xenia fungemia. Ophthalmology called to rule out ocular involvement. I saw patient 3 months ago when he was still alert. Currently non- verbal after respiratory failure, sepsis, and encephalopathy. Physical Exam Vital signs: Vital Signs 01/12/18 20:00 01/12/18 20:01 01/12/18 20:02 Temperature 99.6 F Pulse Rate 111 H 100 H Respiratory Rate 18 18 Blood Pressure 116/70 Pulse Oximetry 98 98 01/13/18 00:00 01/13/18 01:49 01/13/18 04:00 Temperature 102.2 F H 98 F Pulse Rate 122 H 112 H Respiratory Rate 18 18 Blood Pressure 114/61 115/62 Pulse Oximetry 97 97 98 01/13/18 08:00 01/13/18 09:29 01/13/18 11:45 Temperature 101.1 F H Pulse Rate 114 H 112 H Respiratory Rate 17 15 Blood Pressure 114/70 Pulse Oximetry 96 96 01/13/18 12:00 Temperature 99.3 F Pulse Rate 116 H Respiratory Rate 18 Blood Pressure 121/67 Pulse Oximetry 96 Intake & Output 01/12/18 01/13/18 01/13/18 18:59 06:59 18:59 Intake Total 200 / 200 Output Total 830 / 830 Balance 200 / 200 -830 / -830 Intake: IV 200 / 200 Primaxin Inj 500 MG In NS Inj 200 / 200 100 ML @ 200 mls/hr IV.SIG Q8H [facility] Rx#:[id number] Output: Urine 800 / 800 Chest Tube Drainage 30 / 30 Left 0 / 0 Right Mid-Axillary Chest 30 / 30 Other: Date of Last Bowel Movement 01/11/18 - Detailed Eye Exam Comments: Va unable EOM unable CVF unable Pupils 2-1 no APD OU IOP normal to palpation OU Anterior exam OD - normal eyelid, C/S W&Q, K clear, AC deep, pupil round, lens clear OS - normal eyelid, C/S W&Q, K clear, AC deep, pupil round, lens clear Dilated exam OD - ON s/p/f, ves normal, vit clear, retina flat OS - ON s/p/f, ves normal, vit clear, retina flat - Urinary Catheter Management Straight Cath placed during this visit: yes Urethral indwelling: Yes Reason for continuing: Severe pressure ulcer/wound Insertion date: 01/09/18 Insertion time: 08:00 Indwelling Urethral Catheter Cath placed during this visit: yes Reason for continuing: Severe pressure ulcer/wound Insertion date: 01/11/18 Insertion time: 16:18 Results - Labs CBC & Chem 7: 01/12/18 05:29 01/13/18 05:26 Laboratory Results - last 24 hr 01/12/18 01/13/18 01/13/18 17:51 00:33 05:26 PT 26.9 H INR 2.7 APTT 39.2 H Sodium Potassium Chloride Carbon Dioxide Anion Gap BUN Creatinine Estimated GFR POC Glucose 289 H 260 H Random Glucose Calcium 01/13/18 01/13/18 01/13/18 05:26 06:33 12:52 PT INR APTT Sodium 152 H Potassium 5.2 H Chloride 118 H Carbon Dioxide 25.8 Anion Gap 8 BUN 61 H Creatinine 1.59 H Estimated GFR 42 L POC Glucose 222 H 258 H Random Glucose 203 H Calcium 8.6 Microbiology 01/11/18 06:55 Blood - Peripheral Aerobic Blood Culture - Preliminary Yeast species 01/11/18 06:55 Blood - Peripheral Anaerobic Blood Culture - Preliminary No growth in 2 days 01/11/18 07:00 Blood - Peripheral Aerobic Blood Culture - Preliminary No growth in 2 days 01/11/18 07:00 Blood - Peripheral Anaerobic Blood Culture - Preliminary No growth in 2 days 01/09/18 12:25 Blood - Peripheral Aerobic Blood Culture - Preliminary No growth in 4 days 01/09/18 12:25 Blood - Peripheral Anaerobic Blood Culture - Preliminary No growth in 4 days 01/09/18 12:15 Blood - Peripheral Aerobic Blood Culture - Final Xenia tropicalis 01/09/18 12:15 Blood - Peripheral Anaerobic Blood Culture - Preliminary No growth in 4 days - Imaging Impressions Chest X-Ray 01/13/18 00:00 CONCLUSION: Decrease opacity in the lung bases following chest tube placement indicative of pleural fluid evacuation. No evidence of pneumothorax. Bilateral diffuse patchy airspace disease Assessment and Plan - Assessment (1) Fungemia Code(s): B49 - Unspecified mycosis Status: Acute Plan: No fungemia seen on dilated exam.
--- NOTE | 2018-01-13 17:48 | P.PNID ---
Subjective Remarks: seen earlier today remains essentially unresponsive Yeast in blood C. tropicalis in another blood clx from 01/11 2 D echo neg for veg's ophtha: neg for fungal balls Cont to spike fever in 101-102 range urine clx negaive Antibiotics: micafungin Lines: periferal Lines ok Past Medical History: reviewed Allergies/Adverse Reactions: Allergies No Known Allergies Allergy (Verified 12/25/17 11:22) Objective Vital Signs 01/12/18 20:00 01/12/18 20:01 01/12/18 20:02 Temperature 99.6 F Pulse Rate 111 H 100 H Respiratory Rate 18 18 Blood Pressure 116/70 Pulse Oximetry 98 98 01/13/18 00:00 01/13/18 01:49 01/13/18 04:00 Temperature 102.2 F H 98 F Pulse Rate 122 H 112 H Respiratory Rate 18 18 Blood Pressure 114/61 115/62 Pulse Oximetry 97 97 98 01/13/18 08:00 01/13/18 09:29 01/13/18 11:45 Temperature 101.1 F H Pulse Rate 114 H 112 H Respiratory Rate 17 15 Blood Pressure 114/70 Pulse Oximetry 96 96 01/13/18 12:00 01/13/18 16:00 Temperature 99.3 F 99.4 F Pulse Rate 116 H 110 H Respiratory Rate 18 Blood Pressure 121/67 127/69 Pulse Oximetry 96 18 L Intake & Output 01/12/18 01/13/18 01/13/18 18:59 06:59 18:59 Intake Total 200 / 200 Output Total 830 / 830 Balance 200 / 200 -830 / -830 Intake: IV 200 / 200 Primaxin Inj 500 MG In NS Inj 200 / 200 100 ML @ 200 mls/hr IV.SIG Q8H [facility] Rx#:[id number] Output: Urine 800 / 800 Chest Tube Drainage 30 / 30 Left 0 / 0 Right Mid-Axillary Chest 30 / 30 Other: Date of Last Bowel Movement 01/11/18 01/11/18 06:55 Blood - Peripheral Aerobic Blood Culture - Preliminary Yeast species 01/11/18 06:55 Blood - Peripheral Anaerobic Blood Culture - Preliminary No growth in 2 days 01/11/18 07:00 Blood - Peripheral Aerobic Blood Culture - Preliminary No growth in 2 days 01/11/18 07:00 Blood - Peripheral Anaerobic Blood Culture - Preliminary No growth in 2 days 01/09/18 12:25 Blood - Peripheral Aerobic Blood Culture - Preliminary No growth in 4 days 01/09/18 12:25 Blood - Peripheral Anaerobic Blood Culture - Preliminary No growth in 4 days 01/09/18 12:15 Blood - Peripheral Aerobic Blood Culture - Final Xenia tropicalis 01/09/18 12:15 Blood - Peripheral Anaerobic Blood Culture - Preliminary No growth in 4 days 01/10/18 20:15 Catheterized Urine Urine Culture - Final No growth in 48 hours 01/04/18 12:45 Fluid - Pleural fluid Acid Fast Bacilli Smear - Final No acid fast bacilli seen 01/04/18 12:45 Fluid - Pleural fluid Mycobacterial Culture - Preliminary No growth in 1 week 01/09/18 10:25 Catheterized Urine Urine Culture - Final No growth in 48 hours 01/03/18 17:00 Fluid - Pleural fluid Fungal Smear - Final No fungal elements seen 01/03/18 17:00 Fluid - Pleural fluid Fungal Culture - Preliminary No growth in 1 week 01/03/18 17:00 Fluid - Pleural fluid Acid Fast Bacilli Smear - Final No acid fast bacilli seen 01/03/18 17:00 Fluid - Pleural fluid Mycobacterial Culture - Preliminary No growth in 1 week Lab - Hematology Results 01/12/18 05:29 WBC 11.7 H RBC 2.81 L Hgb 8.0 L Hct 25.3 L MCV 90.1 MCH 28.5 MCHC 31.6 L RDW 19.9 H Plt Count 382 MPV 8.9 Neut % (Auto) 59.6 Lymph % (Auto) 27.9 Gilliam % (Auto) 8.6 H Eos % (Auto) 3.3 Baso % (Auto) 0.6 Neut # (Auto) 7.0 Lymph # (Auto) 3.3 Gilliam # (Auto) 1.0 H Eos # (Auto) 0.4 Baso # (Auto) 0.1 WBC Differential . Differential Comment Auto diff final Lab - Chemistry Results 01/11/18 01/12/18 01/12/18 17:46 01:01 05:29 Sodium 151 H Potassium 5.0 Chloride 117 H Carbon Dioxide 25.1 Anion Gap 9 BUN 59 H Creatinine 1.41 H Estimated GFR 49 L POC Glucose 266 H 180 H Random Glucose 161 H Calcium 8.9 01/12/18 01/12/18 01/13/18 05:43 17:51 00:33 Sodium Potassium Chloride Carbon Dioxide Anion Gap BUN Creatinine Estimated GFR POC Glucose 177 H 289 H 260 H Random Glucose Calcium 01/13/18 01/13/18 01/13/18 05:26 06:33 12:52 Sodium 152 H Potassium 5.2 H Chloride 118 H Carbon Dioxide 25.8 Anion Gap 8 BUN 61 H Creatinine 1.59 H Estimated GFR 42 L POC Glucose 222 H 258 H Random Glucose 203 H Calcium 8.6 01/13/18 16:48 Sodium Potassium Chloride Carbon Dioxide Anion Gap BUN Creatinine Estimated GFR POC Glucose 204 H Random Glucose Calcium Imaging: ITS Impressions Head MRI 01/02/18 00:00 CONCLUSION: 1. 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 2. Cerebral atrophy and chronic ischemic small vessel vasculopathy. Chest CT 01/03/18 00:00 CONCLUSION: 1. Large bilateral pleural effusions occupying more than half of the right and left hemithorax. Chest X-Ray 01/13/18 00:00 CONCLUSION: Decrease opacity in the lung bases following chest tube placement indicative of pleural fluid evacuation. No evidence of pneumothorax. Bilateral diffuse patchy airspace disease Physical Exam: GENERAL: Patient is 77 yo on Tpiece SKIN: Warm and dry. No rash HEAD: Normocephalic. EYES: No scleral icterus. No injection or drainage. NECK: Supple, trachea midline. + trach in place with large amount of drainage CARDIOVASCULAR: RRR. No murmurs, rubs, gallops RESPIRATORY: Breath sounds equal bilaterally. No accessory muscle use. b/l CT in place with serous drainage GASTROINTESTINAL: Abdomen soft, non-tender, nondistended. +PEG tube in place MUSCULOSKELETAL: No cyanosis, or edema. GUl; garcia in place with yellow urine Neuro: Obtundeed, eyes closed, not follows IV line sites with no e.o infection. Assessment and Plan - Plan Sacral decub with possible underlying infection, osteomyelitis. Prior h/o ESBL E.coli on 10/24/2017. Possible HCAP GNR UTI ? ESBL given h/o ESBL. 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 Encephalopathy: strokes in hospital, optic neuritis on presentation. New issue: fungemia Recs: chnge micafungin to Fluconazol repeat BC remove line CT A/P
--- NOTE | 2018-01-13 19:25 | P.PN ---
Subjective Interval history: No change . Remains lethargic and on a T Bar. Going for CT Tolerates feeds . Has fevers . Physical Exam Vital signs: Vital Signs 01/12/18 20:00 01/12/18 20:01 01/12/18 20:02 Temperature 99.6 F Pulse Rate 111 H 100 H Respiratory Rate 18 18 Blood Pressure 116/70 Pulse Oximetry 98 98 01/13/18 00:00 01/13/18 01:49 01/13/18 04:00 Temperature 102.2 F H 98 F Pulse Rate 122 H 112 H Respiratory Rate 18 18 Blood Pressure 114/61 115/62 Pulse Oximetry 97 97 98 01/13/18 08:00 01/13/18 09:29 01/13/18 11:45 Temperature 101.1 F H Pulse Rate 114 H 112 H Respiratory Rate 17 15 Blood Pressure 114/70 Pulse Oximetry 96 96 01/13/18 12:00 01/13/18 16:00 Temperature 99.3 F 99.4 F Pulse Rate 116 H 110 H Respiratory Rate 18 Blood Pressure 121/67 127/69 Pulse Oximetry 96 18 L Intake & Output 01/13/18 01/13/18 01/14/18 06:59 18:59 06:59 Output Total 830 / 830 Balance -830 / -830 Output: Urine 800 / 800 Chest Tube Drainage 30 / 30 Left 0 / 0 Right Mid-Axillary Chest 30 / 30 Narrative: GENERAL: Not in distress. Poorly responsive NECK: Trach in place. T bar with trach. CARDIOVASCULAR: Tachycardic, rhythm without murmurs, gallops, or rubs. RESPIRATORY: Breath sounds equal bilaterally. Occ Wheeze . GASTROINTESTINAL: PEG tube in place. Abdomen soft, non-tender, nondistended. MUSCULOSKELETAL: No cyanosis, mild edema. BACK: With decub ulcer. Nontender without obvious deformity. NEURO: . Weak in all Extremities. Non verbal. - Urinary Catheter Management Straight Cath placed during this visit: yes Urethral indwelling: Yes Reason for continuing: Severe pressure ulcer/wound Insertion date: 01/09/18 Insertion time: 08:00 Indwelling Urethral Catheter Cath placed during this visit: yes Reason for continuing: Severe pressure ulcer/wound Insertion date: 01/11/18 Insertion time: 16:18 Results - Labs CBC & Chem 7: 01/12/18 05:29 01/13/18 05:26 Laboratory Results - last 24 hr 01/13/18 01/13/18 01/13/18 00:33 05:26 05:26 PT 26.9 H INR 2.7 APTT 39.2 H Sodium 152 H Potassium 5.2 H Chloride 118 H Carbon Dioxide 25.8 Anion Gap 8 BUN 61 H Creatinine 1.59 H Estimated GFR 42 L POC Glucose 260 H Random Glucose 203 H Calcium 8.6 01/13/18 01/13/18 01/13/18 06:33 12:52 16:48 PT INR APTT Sodium Potassium Chloride Carbon Dioxide Anion Gap BUN Creatinine Estimated GFR POC Glucose 222 H 258 H 204 H Random Glucose Calcium Microbiology 01/11/18 06:55 Blood - Peripheral Aerobic Blood Culture - Preliminary Yeast species 01/11/18 06:55 Blood - Peripheral Anaerobic Blood Culture - Preliminary No growth in 2 days 01/11/18 07:00 Blood - Peripheral Aerobic Blood Culture - Preliminary No growth in 2 days 01/11/18 07:00 Blood - Peripheral Anaerobic Blood Culture - Preliminary No growth in 2 days 01/09/18 12:25 Blood - Peripheral Aerobic Blood Culture - Preliminary No growth in 4 days 01/09/18 12:25 Blood - Peripheral Anaerobic Blood Culture - Preliminary No growth in 4 days 01/09/18 12:15 Blood - Peripheral Aerobic Blood Culture - Final Xenia tropicalis 01/09/18 12:15 Blood - Peripheral Anaerobic Blood Culture - Preliminary No growth in 4 days - Imaging Impressions Chest X-Ray 01/13/18 00:00 CONCLUSION: Decrease opacity in the lung bases following chest tube placement indicative of pleural fluid evacuation. No evidence of pneumothorax. Bilateral diffuse patchy airspace disease Assessment and Plan - Assessment (1) Wound of sacral region Code(s): S31.000A - Unspecified open wound of lower back and pelvis without penetration into retroperitoneum, initial encounter Status: Acute Plan: Antibiotics per ID . CT for possible abscess. (2) CVA (cerebral vascular accident) Code(s): I63.9 - Cerebral infarction, unspecified Status: Acute Plan: Continue anticoagulants PT Evaluation (3) Encephalopathy Code(s): G93.40 - Encephalopathy, unspecified Status: Acute (4) NSTEMI (non-ST elevated myocardial infarction) Code(s): I21.4 - Non-ST elevation (NSTEMI) myocardial infarction Status: Resolved (5) Anemia Code(s): D64.9 - Anemia, unspecified Status: Acute (6) Respiratory failure with hypoxia and hypercapnia Code(s): J96.91 - Respiratory failure, unspecified with hypoxia; J96.92 - Respiratory failure, unspecified with hypercapnia Status: Resolved Plan: T Bar 35 %. Duonebs qid PRN Trach suction and Lavage . (7) Optic neuritis Code(s): H46.9 - Unspecified optic neuritis Status: Resolved (8) Major neurocognitive disorder due to vascular disease, without behavioral disturbance, severe Code(s): F01.50 - Vascular dementia without behavioral disturbance Status: Acute (9) Status post tracheostomy Code(s): Z93.0 - Tracheostomy status Status: Acute (10) Status post tracheostomy Code(s): Z93.0 - Tracheostomy status Status: Acute Plan: Trach care CXR on Wednesday (5) Anemia Qualifiers: Anemia type: unspecified type Qualified Code(s): D64.9 - Anemia, unspecified
--- NOTE | 2018-01-13 19:45 | CT ---
EXAM DATE: 01/13/2018 7:31 PM EDT AGE/SEX: 77 years / Male INDICATIONS: Abdominal pain, hepatosplenic candidiasis, fever, persistent fungemia. CLINICAL DATA: This is the patient's subsequent encounter. Patient reports that signs and symptoms h ave been present for 1 month and indicates a pain score of Nonresponsive. MEDICAL/SURGICAL HISTORY: Renal insufficiency, chronic. Diabetes mellitus type II. Cardiovasc ular disease. Coronary artery stent. ORAL CONTRAST: No oral contrast ingested. RADIATION DOSE: 14.70 CTDI (mGy) COMPARISON: No prior exams available for comparison. TECHNIQUE: Multiple contiguous axial images were obtained through the abdomen and pelvis following b olus infusion of 65 ml Omnipaque 350 (iohexol) nonionic water-soluble contrast as a single exam dos e. No oral contrast ingested. Using automated exposure control and adjustment of the mA and/or kV ac cording to patient size, radiation dose was kept as low as reasonably achievable to obtain optimal di agnostic quality images. DICOM format image data is available electronically for review and comparis on. FINDINGS: Lower Lungs: Bilateral lower chest catheters. Pleural effusion and some basilar consolidation. Liver: The liver has a homogeneous density without space-occupying lesion. There is no dilation of th e biliary tree. Spleen: Homogeneous density without enlargement. Pancreas: Unremarkable without mass or calcification. Kidneys: Normal in size and shape. No evidence of mass or hydronephrosis. Adrenal Glands: Unremarkable. Aorta: The aorta and proximal iliac vessels are grossly unremarkable without aneurysmal dilation. Bowel/Mesentery: No dilated loops of small or large bowel. Percutaneous gastrostomy in place. No izzy dence of free fluid or free intraperitoneal gas. Abdominal Wall: No ventral hernia. Induration of the subcutaneous soft tissues about the lateral pel vis without focal fluid collections.. Retroperitoneum: No evidence of adenopathy in the retrocrural, para-aortic, or deep pelvic regions. Bladder: Liz[place]aga catheter. Nondistended. Reproductive Organs: No abnormal masses or calcifications seen. Inguinal: The inguinal region is unremarkable without evidence of adenopathy. Bony Structures: Left hip intratrochanteric nail.. CONCLUSION: 1. Small bilateral pleural effusions and basilar infiltrates with bilateral chest tubes in place. 2. No evidence of ascites or bowel dilatation. Electronically signed by: Reid Atkins MD 01/13/2018 7:44 PM EDT
[2018-01-14] MEDS: Insulin Detemir Inj 1,000 UNIT/10 ML Vial SQ SCH ×4 (00:14→23:13)
[2018-01-14] MEDS: Insulin NovoLIN Regular Correctional Sugar Inj SQ SCH ×4 (00:15→18:05)
[2018-01-14] MEDS: Sodium Chloride 0.45 % Inj 1,000 ML IV.CONT SCH ×3 (00:23→23:03)
--- NOTE | 2018-01-14 08:48 | P.PNID ---
Subjective Remarks: afebrile remains essentially unresponsive Yeast in blood C. tropicalis in another blood clx from 01/11 2 D echo neg for veg's ophtha: neg for fungal balls CT A/P not sugg of hepatosplenic candidiasis urine clx negaive Antibiotics: diflucan Lines: periferal Lines ok Past Medical History: reviewed Allergies/Adverse Reactions: Allergies No Known Allergies Allergy (Verified 12/25/17 11:22) Objective Vital Signs 01/13/18 09:29 01/13/18 11:45 01/13/18 12:00 Temperature 99.3 F Pulse Rate 112 H 116 H Respiratory Rate 15 18 Blood Pressure 121/67 Pulse Oximetry 96 96 01/13/18 16:00 01/13/18 20:00 01/13/18 21:30 Temperature 99.4 F 98.8 F Pulse Rate 110 H 106 H 107 H Respiratory Rate 19 Blood Pressure 127/69 115/88 Pulse Oximetry 18 L 96 01/13/18 21:39 01/14/18 00:15 01/14/18 04:00 Temperature 98 F Pulse Rate 110 H 105 H Respiratory Rate 20 20 20 Blood Pressure 120/89 Pulse Oximetry 96 98 01/14/18 05:40 01/14/18 07:42 Temperature 97.7 F Pulse Rate 110 H 116 H Respiratory Rate 21 16 Blood Pressure 118/89 Pulse Oximetry 96 97 Intake & Output 01/13/18 01/14/18 01/14/18 18:59 06:59 18:59 Intake Total 0 / 0 Output Total 1420 / 1420 Balance -1420 / -1420 Weight 79.6 kg Intake: Oral 0 / 0 Output: Urine Amount (Catheter) 1400 / 1400 Indwelling Urethral Catheter 1400 / 1400 Chest Tube Drainage 20 / 20 Left 20 / 20 Right Mid-Axillary Chest 0 / 0 Other: # Voids 4 # Bowel Movements 1 3 # Incontinent Bowel Movements 1 Weight On Admission 110 kg 01/11/18 06:55 Blood - Peripheral Aerobic Blood Culture - Preliminary Yeast species 01/11/18 06:55 Blood - Peripheral Anaerobic Blood Culture - Preliminary No growth in 2 days 01/11/18 07:00 Blood - Peripheral Aerobic Blood Culture - Preliminary No growth in 2 days 01/11/18 07:00 Blood - Peripheral Anaerobic Blood Culture - Preliminary No growth in 2 days 01/09/18 12:25 Blood - Peripheral Aerobic Blood Culture - Preliminary No growth in 4 days 01/09/18 12:25 Blood - Peripheral Anaerobic Blood Culture - Preliminary No growth in 4 days 01/09/18 12:15 Blood - Peripheral Aerobic Blood Culture - Final Xenia tropicalis 01/09/18 12:15 Blood - Peripheral Anaerobic Blood Culture - Preliminary No growth in 4 days 01/10/18 20:15 Catheterized Urine Urine Culture - Final No growth in 48 hours 01/04/18 12:45 Fluid - Pleural fluid Acid Fast Bacilli Smear - Final No acid fast bacilli seen 01/04/18 12:45 Fluid - Pleural fluid Mycobacterial Culture - Preliminary No growth in 1 week 01/09/18 10:25 Catheterized Urine Urine Culture - Final No growth in 48 hours Lab - Chemistry Results 01/12/18 01/13/18 01/13/18 17:51 00:33 05:26 Sodium 152 H Potassium 5.2 H Chloride 118 H Carbon Dioxide 25.8 Anion Gap 8 BUN 61 H Creatinine 1.59 H Estimated GFR 42 L POC Glucose 289 H 260 H Random Glucose 203 H Calcium 8.6 01/13/18 01/13/18 01/13/18 06:33 12:52 16:48 Sodium Potassium Chloride Carbon Dioxide Anion Gap BUN Creatinine Estimated GFR POC Glucose 222 H 258 H 204 H Random Glucose Calcium 01/13/18 01/14/18 23:42 05:50 Sodium Potassium Chloride Carbon Dioxide Anion Gap BUN Creatinine Estimated GFR POC Glucose 222 H 242 H Random Glucose Calcium Imaging: ITS Impressions Head MRI 01/02/18 00:00 CONCLUSION: 1. 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 2. Cerebral atrophy and chronic ischemic small vessel vasculopathy. Chest CT 01/03/18 00:00 CONCLUSION: 1. Large bilateral pleural effusions occupying more than half of the right and left hemithorax. Abdomen/Pelvis CT 01/13/18 00:00 CONCLUSION: 1. Small bilateral pleural effusions and basilar infiltrates with bilateral chest tubes in place. 2. No evidence of ascites or bowel dilatation. Chest X-Ray 01/13/18 00:00 CONCLUSION: Decrease opacity in the lung bases following chest tube placement indicative of pleural fluid evacuation. No evidence of pneumothorax. Bilateral diffuse patchy airspace disease Physical Exam: GENERAL: Patient is 77 yo on Tpiece SKIN: Warm and dry. No rash HEAD: Normocephalic. EYES: No scleral icterus. No injection or drainage. NECK: Supple, trachea midline. + trach in place with large amount of drainage CARDIOVASCULAR: RRR. No murmurs, rubs, gallops RESPIRATORY: Breath sounds equal bilaterally. No accessory muscle use. b/l CT in place with serous drainage GASTROINTESTINAL: Abdomen soft, non-tender, nondistended. +PEG tube in place MUSCULOSKELETAL: No cyanosis, or edema. GUl; garcia in place with yellow urine Neuro: Obtundeed, eyes closed, not follows Assessment and Plan - Plan Sacral decub with possible underlying infection, osteomyelitis. Prior h/o ESBL E.coli on 10/24/2017. Possible HCAP GNR UTI ? ESBL given h/o ESBL. 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 Encephalopathy: strokes in hospital, optic neuritis on presentation. New issue: fungemia, C. tropicalis - persistent fungemia Recs: cont Fluconazol repeat BC Once documented blood sterility will cont fluconazole at least 2 weeks MOnitoring parameters: CBC CMP transition to oral form when ready for dc
[2018-01-14 09:05] LABS: Hematocrit 27.5 % (39.0-51.0); Hemoglobin 8.5 gm/dL (13.0-17.0); Mean Corpuscular HGB Conc 31.1 % (32.0-36.0); Mean Corpuscular Volume 90.1 fL (80.0-100.0); Platelet Count 426 th/mm3 (150-450); Red Blood Count 3.05 mil/mm3 (4.50-5.90); Red Cell Distribution Width 20.2 % (11.6-17.2); White Blood Count 13.5 th/mm3 (4.0-11.0)
[2018-01-14 09:14] LABS: Activated Partial Thrombo Time 35.9 sec (24.3-30.1); Prothrombin Time 20.7 sec (9.8-11.6)
[2018-01-14 09:28] LABS: Calcium 8.4 mg/dL (8.5-10.1); Potassium 5.5 meq/L (3.5-5.1)
[2018-01-14] MEDS: Famotidine 20 MG Tablet PO SCH ×2 (09:33→23:02)
[2018-01-14] MEDS: Acetaminophen 325 MG Tablet PO PRN (09:33)
[2018-01-14] MEDS: Methylphenidate HCl 5 MG Tablet PO SCH ×2 (11:08→11:15)
[2018-01-14] MEDS: Collagenase Oint 30 GM Tube TOPICAL SCH (11:10)
[2018-01-14] MEDS: Polyethylene Glycol 3350 17 GM Packet PO SCH (11:10)
[2018-01-14] MEDS: Chlorhexidine 0.12% Oral Kit 15 ML UDC SWISH-SPIT SCH ×2 (11:10→23:02)
[2018-01-14] MEDS: Hydrocortisone Acetate 25 MG Supp RECTAL SCH ×2 (11:10→23:03)
--- NOTE | 2018-01-14 11:15 | P.PNPAL ---
Reason for Visit Reason for visit: a. To assist with evaluation and management of symptoms including: pain, dyspnea, encephalopathy b. To assist medical decision maker(s) with: better understanding of current medical conditions; weighing benefits/burdens of medical treatment options; making medical treatment decisions. Subjective Subjective/Interval History: Patient minimally responsive at time of my visit. He underwent bilateral chest tube placement pleural effusions on 01/13/18. He feels warm and is tachypnic and tachycardic at time of my visit. He has yeast growing out of his blood. He remains severely hypoalbuminemic. . Family/Friend Interactions: Daughter is at bedside. She informs me that from the family perspective he was showing significant improvement in his encephalopathy prior to the recent infections. She said he shook hands on command and smiled at family members. Advance Directives Living Will: Never completed Health Care Surrogate: Never completed Durable Power of Window Shade Ring Coverer: Never completed Documented care wishes:: No written documentation of health care goals/preferences. . Objective Vital Signs: Vital Signs 01/13/18 11:45 01/13/18 12:00 01/13/18 16:00 Temperature 99.3 F 99.4 F Pulse Rate 116 H 110 H Respiratory Rate 18 Blood Pressure 121/67 127/69 Pulse Oximetry 96 96 18 L 01/13/18 20:00 01/13/18 21:30 01/13/18 21:39 Temperature 98.8 F Pulse Rate 106 H 107 H 110 H Respiratory Rate 19 20 Blood Pressure 115/88 Pulse Oximetry 96 96 01/14/18 00:15 01/14/18 04:00 01/14/18 05:40 Temperature 98 F 97.7 F Pulse Rate 105 H 110 H Respiratory Rate 20 20 21 Blood Pressure 120/89 118/89 Pulse Oximetry 98 96 01/14/18 07:42 01/14/18 10:12 Temperature Pulse Rate 116 H 115 H Respiratory Rate 16 18 Blood Pressure Pulse Oximetry 97 Intake & Output 01/13/18 01/14/18 01/14/18 18:59 06:59 18:59 Intake Total 0 / 0 Output Total 1420 / 1420 Balance -1420 / -1420 Weight 79.6 kg Intake: Oral 0 / 0 Output: Urine Amount (Catheter) 1400 / 1400 Indwelling Urethral Catheter 1400 / 1400 Chest Tube Drainage 20 / 20 Left 20 / 20 Right Mid-Axillary Chest 0 / 0 Other: # Voids 4 # Bowel Movements 1 3 # Incontinent Bowel Movements 1 Weight On Admission 110 kg Physical Exam: CONSTITUTIONAL/GENERAL: This is a frail elderly, ill -appearing gentleman; minimally responsive; tachypnic, tachycardic in a med surg bed. TUBES/LINES/DRAINS: peripheral IVs; SCDs, Lizarraga catheter; tracheostomy, peg tube ; bilateral chest tubes. SKIN: Warm to touch. ENT: Unable to assess hearing. Nose without bleeding. Mucaous membranes dry. Trach collar. CARDIOVASCULAR: Irregular rhythm. No audible murmur. Tachycardic. RESPIRATORY/CHEST: Symmetric, tachypnic, diminished to auscultation. A couple scattered rhonchi GASTROINTESTINAL: Abdomen soft, round. Bowel sounds present. NEUROLOGICAL: Does not open eyes to voice / exam. Grimace with movement. PSYCHIATRIC: Unable to assess due to level of responsiveness. . Diagnostic Tests Laboratory: Laboratory Results - last 72 hr 01/11/18 01/11/18 01/12/18 14:03 17:46 01:01 WBC RBC Hgb Hct MCV MCH MCHC RDW Plt Count MPV Neut % (Auto) Lymph % (Auto) Jasper % (Auto) Eos % (Auto) Baso % (Auto) Neut # (Auto) Lymph # (Auto) Jasper # (Auto) Eos # (Auto) Baso # (Auto) WBC Differential Differential Comment PT INR APTT Sodium Potassium Chloride Carbon Dioxide Anion Gap BUN Creatinine Estimated GFR POC Glucose 251 H 266 H 180 H Random Glucose Calcium 01/12/18 01/12/18 01/12/18 05:29 05:29 05:29 WBC 11.7 H RBC 2.81 L Hgb 8.0 L Hct 25.3 L MCV 90.1 MCH 28.5 MCHC 31.6 L RDW 19.9 H Plt Count 382 MPV 8.9 Neut % (Auto) 59.6 Lymph % (Auto) 27.9 Jasper % (Auto) 8.6 H Eos % (Auto) 3.3 Baso % (Auto) 0.6 Neut # (Auto) 7.0 Lymph # (Auto) 3.3 Jasper # (Auto) 1.0 H Eos # (Auto) 0.4 Baso # (Auto) 0.1 WBC Differential . Differential Comment Auto diff final PT 28.3 H INR 2.8 APTT 40.6 H Sodium 151 H Potassium 5.0 Chloride 117 H Carbon Dioxide 25.1 Anion Gap 9 BUN 59 H Creatinine 1.41 H Estimated GFR 49 L POC Glucose Random Glucose 161 H Calcium 8.9 01/12/18 01/12/18 01/13/18 05:43 17:51 00:33 WBC RBC Hgb Hct MCV MCH MCHC RDW Plt Count MPV Neut % (Auto) Lymph % (Auto) Jasper % (Auto) Eos % (Auto) Baso % (Auto) Neut # (Auto) Lymph # (Auto) Jasper # (Auto) Eos # (Auto) Baso # (Auto) WBC Differential Differential Comment PT INR APTT Sodium Potassium Chloride Carbon Dioxide Anion Gap BUN Creatinine Estimated GFR POC Glucose 177 H 289 H 260 H Random Glucose Calcium 01/13/18 01/13/18 01/13/18 05:26 05:26 06:33 WBC RBC Hgb Hct MCV MCH MCHC RDW Plt Count MPV Neut % (Auto) Lymph % (Auto) Jasper % (Auto) Eos % (Auto) Baso % (Auto) Neut # (Auto) Lymph # (Auto) Jasper # (Auto) Eos # (Auto) Baso # (Auto) WBC Differential Differential Comment PT 26.9 H INR 2.7 APTT 39.2 H Sodium 152 H Potassium 5.2 H Chloride 118 H Carbon Dioxide 25.8 Anion Gap 8 BUN 61 H Creatinine 1.59 H Estimated GFR 42 L POC Glucose 222 H Random Glucose 203 H Calcium 8.6 01/13/18 01/13/18 01/13/18 12:52 16:48 23:42 WBC RBC Hgb Hct MCV MCH MCHC RDW Plt Count MPV Neut % (Auto) Lymph % (Auto) Jasper % (Auto) Eos % (Auto) Baso % (Auto) Neut # (Auto) Lymph # (Auto) Jasper # (Auto) Eos # (Auto) Baso # (Auto) WBC Differential Differential Comment PT INR APTT Sodium Potassium Chloride Carbon Dioxide Anion Gap BUN Creatinine Estimated GFR POC Glucose 258 H 204 H 222 H Random Glucose Calcium 01/14/18 01/14/18 01/14/18 05:50 08:45 08:45 WBC RBC Hgb Hct MCV MCH MCHC RDW Plt Count MPV Neut % (Auto) Lymph % (Auto) Jasper % (Auto) Eos % (Auto) Baso % (Auto) Neut # (Auto) Lymph # (Auto) Jasper # (Auto) Eos # (Auto) Baso # (Auto) WBC Differential Differential Comment PT 20.7 H INR 2.0 APTT 35.9 H Sodium 153 H Potassium 5.5 H Chloride 120 H Carbon Dioxide 24.0 Anion Gap 9 BUN 57 H Creatinine 1.58 H Estimated GFR 43 L POC Glucose 242 H Random Glucose 207 H Calcium 8.4 L 01/14/18 08:45 WBC 13.5 H RBC 3.05 L Hgb 8.5 L Hct 27.5 L MCV 90.1 MCH 28.0 MCHC 31.1 L RDW 20.2 H Plt Count 426 MPV 9.0 Neut % (Auto) Lymph % (Auto) Jasper % (Auto) Eos % (Auto) Baso % (Auto) Neut # (Auto) Lymph # (Auto) Jasper # (Auto) Eos # (Auto) Baso # (Auto) WBC Differential Differential Comment PT INR APTT Sodium Potassium Chloride Carbon Dioxide Anion Gap BUN Creatinine Estimated GFR POC Glucose Random Glucose Calcium Result Diagrams: 01/14/18 08:45 01/14/18 08:45 Microbiology: Microbiology 01/11/18 06:55 Aerobic Blood Culture - Preliminary Blood - Peripheral Yeast species Anaerobic Blood Culture - Preliminary No growth in 2 days 01/11/18 07:00 Aerobic Blood Culture - Preliminary Blood - Peripheral No growth in 2 days Anaerobic Blood Culture - Preliminary No growth in 2 days 01/09/18 12:25 Aerobic Blood Culture - Preliminary Blood - Peripheral No growth in 4 days Anaerobic Blood Culture - Preliminary No growth in 4 days 01/09/18 12:15 Aerobic Blood Culture - Final Blood - Peripheral Xenia tropicalis Anaerobic Blood Culture - Preliminary No growth in 4 days 01/10/18 20:15 Urine Culture - Final Catheterized Urine No growth in 48 hours 01/04/18 12:45 Acid Fast Bacilli Smear - Final Fluid - Pleural fluid No acid fast bacilli seen Mycobacterial Culture - Preliminary No growth in 1 week 01/09/18 10:25 Urine Culture - Final Catheterized Urine No growth in 48 hours Imaging: ITS Impressions Head MRI 01/02/18 00:00 CONCLUSION: 1. 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 2. Cerebral atrophy and chronic ischemic small vessel vasculopathy. Chest CT 01/03/18 00:00 CONCLUSION: 1. Large bilateral pleural effusions occupying more than half of the right and left hemithorax. Abdomen/Pelvis CT 01/13/18 00:00 CONCLUSION: 1. Small bilateral pleural effusions and basilar infiltrates with bilateral chest tubes in place. 2. No evidence of ascites or bowel dilatation. Chest X-Ray 01/13/18 00:00 CONCLUSION: Decrease opacity in the lung bases following chest tube placement indicative of pleural fluid evacuation. No evidence of pneumothorax. Bilateral diffuse patchy airspace disease Procedures: * 11/09/17 - Intubation * 11/11/17 - Extubated * 11/18/17 - Re-intubated * Tracheostomy * PEG tube Assessment and Plan - Disease Oriented Problem List (1) Carotid stenosis (2) Debility (3) Aspiration pneumonia (4) Renal insufficiency (5) Diabetes (6) Optic neuritis (7) Pleural effusion (8) Anemia (9) CVA (cerebral vascular accident) (10) Hypoalbuminemia (11) Wound of sacral region (12) Status post tracheostomy (13) Fungemia - Symptom Scale (1) Pain 0-10 Scale: Unable to quantify (2) Encephalopathy 0-10 Scale: Unable to quantify (3) Dyspnea 0-10 Scale: Unable to quantify Pertinent Non-Medical Issues: Psychosocial: Patient was born and raised in [place], he lives in [place]. Primary language is Maori. Patient is , retired, has 2 daughters. Highest level of education is high school. Spiritual: Coptic Caodaism. Legal: No known advanced directives have been completed. Not made available if they were completed. Ethical issues impacting care: Patient incapacitated for medical decision- making. Important Contacts: Family providing son-in-law's contact information: Avtar Ashraf . -pending information Daughter Alexandra -pending contact information Daughter Lanetet -not very forthcoming with contact info. State "I am always here." Prognosis: Patient with a complicated prolonged hospitalization to include ESBL E. coli bacteremia, NSTEMI, UTI, aspiration pneumonia, GI bleed, stroke, pleural effusions, seizures. He remains encephalopathic. He is deconditioned and hypoalbuminemic. He is s/p tracheostomy and PEG. He has managed to wean off vent support and bleeding has stopped, but he remains quite encephalopathic and continues to be suffer from recurrent infections. Family wants him on anti- coagulants to protect agains stroke so he now has increased chance of re-bleed. Based on hospitalization to date, chances of surviving the hospital are growing worse, not better. Should he survive the hospitalization, he will be very vulnerable to major setbacks due to his overall frailty and nutritional status. It is unlikely, should he survive the hospitalization, that he will be able to function independently in the future. Patient is certainly eligible for hospice services at such time that the medical decision makers are ready to opt for comfort oriented care. . Code Status: Full Code Plan: ==CODE STATUS: FULL CODE ==HEALTHCARE DECISION-MAKING: . Patient incapacitated for medical decision- making secondary to clinical condition. No reasonable probability at this time that he will recover capacity. has indicated she wants her daughters to manage medical decisions especially Lanette. does not want to participate in medical decision making. ==GOALS OF CARE: Family continue to express aggressive goals. They continue to see improvement in his neurologic status between infections that the medical team is not seeing. Family has tremendous rosetta, sees some changes as evidence of miraculous healing , and continues to expect more improvement. ==SYMPTOMS: = * Debility: Multifactorial secondary to multiple acute on chronic illnesses and prolonged hospitalization, severe hypoalbuminemia. Remains critically ill. * Encephalopathy probably multi-factorial -- stroke, infection, medications, prolonged hospitalization, etc. Though family believes there has been significant improvement, he continues to appear quite encephalopathic to the medical team. * Pain: Secondary to lines, prolonged bedbound status, wounds, catheter, vascular access lines, etc. No further recommendations at this time. * Dyspnea: Initially managed with vent support. Now off vent and on trach collar. Increased dyspnea now due to pleural effusions and fever. == We have minimized comfort meds to allow more wakefulness, to assess neurologically, to prevent any possible negative impact on respiratory status, and to allow for stimulation. == Disposition -- should patient be able to improve, post-acute care arrangements will likely be difficult given his foreign citizenship and lack of payor source. Should he decline and goals become comfort oriented, he would certainly be a hospice candidate and would be accepted as a linsey case. ==Palliative care will continue to follow to assist with symptom management and to further clarify goals of medical treatment as the clinical course evolves. . . Attestation Attestation: To help prompt me to consider important information that might be impacting today's encounter and assessment, information from prior notes written by myself or my colleagues may have been "brought forward" into today's note. My signature on this note, however, is an attestation that I personally performed the exam, history, and/or decision-making noted today, and, unless otherwise indicated, the interactions with patient, family, and staff as well as the review of records all occurred today. I also attest that the listed assessment and stated plan reflect my best clinical judgment today based on the combination of historical information, prior notes, and today's exam/ interactions. When time spent is documented, it refers only to time spent today by the signer, or if indicated, combined time spent today by collaborating physician/nurse practitioner.
--- NOTE | 2018-01-14 12:53 | P.PNIM ---
Subjective Interval history: Still having low-grade fever, no change in mental status. Discussed with daughter. Physical Exam Vital signs: Vital Signs 01/13/18 16:00 01/13/18 20:00 01/13/18 21:30 Temperature 99.4 F 98.8 F Pulse Rate 110 H 106 H 107 H Respiratory Rate 19 Blood Pressure 127/69 115/88 Pulse Oximetry 18 L 96 01/13/18 21:39 01/14/18 00:15 01/14/18 04:00 Temperature 98 F Pulse Rate 110 H 105 H Respiratory Rate 20 20 20 Blood Pressure 120/89 Pulse Oximetry 96 98 01/14/18 05:40 01/14/18 07:42 01/14/18 08:00 Temperature 97.7 F 99.3 F Pulse Rate 110 H 116 H 113 H Respiratory Rate 21 16 16 Blood Pressure 118/89 119/61 Pulse Oximetry 96 97 95 01/14/18 10:12 Temperature Pulse Rate 115 H Respiratory Rate 18 Blood Pressure Pulse Oximetry Intake & Output 01/13/18 01/14/18 01/14/18 18:59 06:59 18:59 Intake Total 0 / 0 Output Total 1420 / 1420 Balance -1420 / -1420 Weight 79.6 kg Intake: Oral 0 / 0 Output: Urine Amount (Catheter) 1400 / 1400 Indwelling Urethral Catheter 1400 / 1400 Chest Tube Drainage / 20 Left 20 / 20 Right Mid-Axillary Chest 0 / 0 Other: # Voids 4 Date of Last Bowel Movement 01/14/18 # Bowel Movements 1 3 # Incontinent Bowel Movements 1 Weight On Admission 110 kg Narrative: GENERAL: Appears chronically ill. NECK: Trach in place. T bar with trach. CARDIOVASCULAR: Tachycardic, rhythm without murmurs, gallops, or rubs. RESPIRATORY: Breath sounds equal bilaterally. Poor effort. GASTROINTESTINAL: PEG tube in place. Abdomen soft, non-tender, nondistended. MUSCULOSKELETAL: No cyanosis, mild edema. BACK: With decub ulcer. Nontender without obvious deformity. NEURO: Nonverbal, does not follow any commands. - Urinary Catheter Management Straight Cath placed during this visit: yes Urethral indwelling: Yes Reason for continuing: Severe pressure ulcer/wound Insertion date: 01/09/18 Insertion time: 08:00 Indwelling Urethral Catheter Cath placed during this visit: yes Reason for continuing: Severe pressure ulcer/wound Insertion date: 01/11/18 Insertion time: 16:18 Results - Labs CBC & Chem 7: 01/14/18 08:45 01/14/18 08:45 Laboratory Results - last 24 hr 01/13/18 01/13/18 01/13/18 12:52 16:48 23:42 WBC RBC Hgb Hct MCV MCH MCHC RDW Plt Count MPV PT INR APTT Sodium Potassium Chloride Carbon Dioxide Anion Gap BUN Creatinine Estimated GFR POC Glucose 258 H 204 H 222 H Random Glucose Calcium 01/14/18 01/14/18 01/14/18 05:50 08:45 08:45 WBC RBC Hgb Hct MCV MCH MCHC RDW Plt Count MPV PT 20.7 H INR 2.0 APTT 35.9 H Sodium 153 H Potassium 5.5 H Chloride 120 H Carbon Dioxide 24.0 Anion Gap 9 BUN 57 H Creatinine 1.58 H Estimated GFR 43 L POC Glucose 242 H Random Glucose 207 H Calcium 8.4 L 01/14/18 01/14/18 08:45 11:07 WBC 13.5 H RBC 3.05 L Hgb 8.5 L Hct 27.5 L MCV 90.1 MCH 28.0 MCHC 31.1 L RDW 20.2 H Plt Count 426 MPV 9.0 PT INR APTT Sodium Potassium Chloride Carbon Dioxide Anion Gap BUN Creatinine Estimated GFR POC Glucose 247 H Random Glucose Calcium Microbiology 01/11/18 06:55 Blood - Peripheral Aerobic Blood Culture - Final Xenia tropicalis 01/11/18 06:55 Blood - Peripheral Anaerobic Blood Culture - Preliminary No growth in 3 days 01/11/18 07:00 Blood - Peripheral Aerobic Blood Culture - Preliminary No growth in 3 days 01/11/18 07:00 Blood - Peripheral Anaerobic Blood Culture - Preliminary No growth in 3 days 01/09/18 12:25 Blood - Peripheral Aerobic Blood Culture - Final No growth in 5 days 01/09/18 12:25 Blood - Peripheral Anaerobic Blood Culture - Final No growth in 5 days 01/09/18 12:15 Blood - Peripheral Aerobic Blood Culture - Final Xenia tropicalis 01/09/18 12:15 Blood - Peripheral Anaerobic Blood Culture - Final No growth in 5 days - Imaging Impressions Abdomen/Pelvis CT 01/13/18 00:00 CONCLUSION: 1. Small bilateral pleural effusions and basilar infiltrates with bilateral chest tubes in place. 2. No evidence of ascites or bowel dilatation. Chest X-Ray 01/13/18 00:00 CONCLUSION: Decrease opacity in the lung bases following chest tube placement indicative of pleural fluid evacuation. No evidence of pneumothorax. Bilateral diffuse patchy airspace disease Assessment and Plan - Assessment (1) Encephalopathy Code(s): G93.40 - Encephalopathy, unspecified Status: Acute (2) CVA (cerebral vascular accident) Code(s): I63.9 - Cerebral infarction, unspecified Status: Acute (3) Wound of sacral region Code(s): S31.000A - Unspecified open wound of lower back and pelvis without penetration into retroperitoneum, initial encounter Status: Acute (4) NSTEMI (non-ST elevated myocardial infarction) Code(s): I21.4 - Non-ST elevation (NSTEMI) myocardial infarction Status: Resolved (5) Anemia Code(s): D64.9 - Anemia, unspecified Status: Acute (6) Respiratory failure with hypoxia and hypercapnia Code(s): J96.91 - Respiratory failure, unspecified with hypoxia; J96.92 - Respiratory failure, unspecified with hypercapnia Status: Resolved (7) Optic neuritis Code(s): H46.9 - Unspecified optic neuritis Status: Resolved - Plan Acute on chronic resp failure s/p trach/PEG CVA Anemia s/p NSTEMI Optic neuritis - neurology and Dr. Pereira has seen patient with encephalopathy, seizures, L ENID infarct. Status post systemic TPA on November 09 Repeat MRI unchanged; EEG with diffuse encephalopathy -on coumadin, statin, Ritalin, Keppra. Neuropsychology following. Was on steroids for optic neuritis. Encephalopathy persists. Recurrent UTI-prior history of ESBL E. coli Healthcare associated pneumonia with Klebsiella and ESBL E. coli Bialteral Pleural effusion- pigtail catheters in place Sacral decub with possible underlying infection, osteomyelitis. Anemia Fungemia - Sacral decub has eschar with possible underlying osteomyelitis. Patient family refused surgical debridement. Wound care and Dr. Upton following. -Lizarraga catheter changed 01/09/2018, pleural fluid culture negative to date. Urine culture on 01/09 grew Pseudomonas pansensitive,12/31 Wound cx: ESBL E.coli -Status post ciprofloxacin and imipenem. - echocardiogram on 01/12, no vegetation. Chest x-ray stable from 01/13/2018. -Repeat blood cultures still growing Xenia tropicalis, switch back to fluconazole per infectious disease. Follow-up repeat blood culture, once documented sterility, will continue fluconazole for 2 weeks, may switch to oral on discharge. Ophthalmology has seen the patient, no fungemia. Scrotal Edema/ulcerations Has been evaluated by Urology: continue with clean intermittent catheter as needed, scrotal elevation Sacral wound -Seen by Plastic surgery; debridement declined per patient's family -Wound care is following- apply dressings per wound management recommendations NSTEMI Echo 10/19: LV systolic function is moderately reduced, EF 40-45%. continue Coreg and statin. Acute on chronic respiratory failure status post tracheostomy, large bilateral effusion - Trach changed from cuffless to size 6 on 12/31, bronchodilators, pulmonary toilet. - Large bilateral effusions on CT chest. Right-sided pigtail chest tube placed 01/03/2018, Pleural fluid studies consistent with transudative effusion, culture negative. Chest x-ray stable from 01/13/2018. Chronic renal insufficiency-stable, monitor. Anemia secondary to GI bleed- Status post EGD colonoscopy. GI has signed off, patient with healed rectal ulcers and hemorrhoids. Continue Pepcid. DM type 2 - A1C 9.6, continue Levemir, increased to 8 units twice a day, sliding scale insulin and Glucerna. FEN Hypernatremia-continue free water, increase half-normal saline. Recheck BMP tomorrow. Continue tube feeds-Glucerna 1.5 with goal rate 60ml/hr GI prophylaxis- on Pepcid DVT prophylaxis-on coumadin (5) Anemia Qualifiers: Anemia type: unspecified type Qualified Code(s): D64.9 - Anemia, unspecified
--- NOTE | 2018-01-14 14:28 | P.DIET ---
Nutritional Evaluation Type of nutrition evaluation: follow-up Nutrition consult regarding: Tube Feeding Nutrition screening: Pressure Injury Subjective Subjective Comments: Discussed w/ RN about pts TFing. Currently running at 50mls/hr d/t intolerance symptoms while in ICU. Pt is currently tolerating 50mls/hr w/ no signs of intolerance. Objective - Diagnosis Optic Neuritis - Objective % IBW: 114 (QZV=[id number]#) Body Weight Used for Calculations: Actual (79.6kg) Energy Needs - Lower Range (kCal/kg): 30 Energy Needs - Upper Range (kCal/kg): 35 Lower Limit kCal/kg (kCals): 2,388 Upper Limit kCal/kg (kCals): 2,786 Lower Limit Protein Factor (Grams per Kg): 1.3 Upper Limit Protein Factor (Grams per Kg): 1.6 Lower Protein Needs (Protein): 103 Upper Protein Needs (Protein): 127 Fluid Factor (ml/kg): 30 Estimated Fluid Needs (ml): 2,388 Dietitian Reviewed in Medical Record: Curent medications, Intake & Output, Labs , Tube feeding, Wound/DTI Diet Order: TF Only Wound Care Note: Sacrum: Unstageable Scrotum & R Calf: Maceration Objective Comments: Meds: Ami, Gilmar Rojas Labs: Na 153, K 5.5, BUN 57, painter and paperhanger apprentice 1.58, eGFR 43, AccuCheck 247, A1C 9.5 LBM7/20 01/13 bilateral chest tubes placed Nursing order for 150ml water flushes Q shift Feeding - Current Tube Feeding Tube Feeding Product: Glucerna 1.5 Tube Feeding Method: Pump Tube Feeding Rate: 50 Tube Feeding Route: gastrostomy Current kCals Provided by Tube Feedin,800 Current Protein Provided by Tube Feeding (gPRO): 99 Current Free H2O Provided (m/l): 911 Assessment Assessment: Pt remains on TFing as described above. Order is for 60mls/hr, but in ICU pt was having high residuals per RN so rate was decreased to 50mls/hr. Per RN, pt is currently tolerating TFing @ 50mls/hr w/ no signs of intolerance. Recommend increasing TF to 65mls/hr to provide 2340kcals, 129g PRO, and 1184mls fluid. Recommend 200ml water flush Q 6hrs and monitor hydration. For wound healing, recommend Sharif powder BID through PEG. This must be ordered via the MAR. TF rate does not necessarily have to be adjusted for elevated residuals unless the pt is showing signs of intolerance, ie: vomiting, distension, diarrhea, etc. Discussed all recommendations w/ RN. Dietitian following. Recommendations: 1. Recommend Glucerna 1.5 @ 65mls/hr x 24hrs. 2. Recommend 200ml water flushes Q 6hrs and monitor hydration. 3. Recommend Sharif powder BID through PEG tube for wound healing. 4. TF does not necessarily need to be adjusted for high residuals unless signs of intolerance are also present. Dietitian to Monitor: Lab values, Glucose level, Intake & Output, Tube feeding tolerance, Weight change, Residuals, Wound/skin status, Medical course
--- NOTE | 2018-01-14 16:35 | P.PN ---
Subjective Interval history: Lethargic and on a T Bar at 35 % FIo2 No change overall. Weak in all limbs Physical Exam Vital signs: Vital Signs 01/13/18 20:00 01/13/18 21:30 01/13/18 21:39 Temperature 98.8 F Pulse Rate 106 H 107 H 110 H Respiratory Rate 19 20 Blood Pressure 115/88 Pulse Oximetry 96 96 01/14/18 00:15 01/14/18 04:00 01/14/18 05:40 Temperature 98 F 97.7 F Pulse Rate 105 H 110 H Respiratory Rate 20 20 21 Blood Pressure 120/89 118/89 Pulse Oximetry 98 96 01/14/18 07:42 01/14/18 08:00 01/14/18 10:12 Temperature 99.3 F Pulse Rate 116 H 113 H 115 H Respiratory Rate 16 16 18 Blood Pressure 119/61 Pulse Oximetry 97 95 01/14/18 12:00 Temperature 99.5 F Pulse Rate 114 H Respiratory Rate 17 Blood Pressure 124/73 Pulse Oximetry 99 Intake & Output 01/13/18 01/14/18 01/14/18 18:59 06:59 18:59 Intake Total 0 / 0 1000 / 1000 Output Total 1420 / 1420 Balance -1420 / -1420 1000 / 1000 Weight 79.6 kg Intake: IV 1000 / 1000 1/2 Normal Saline Inj 1,000 ML 1000 / 1000 @ 84 mls/hr IV.CONT .[id number] [facility] Rx#:[id number] Oral 0 / 0 Output: Urine Amount (Catheter) 1400 / 1400 Indwelling Urethral Catheter 1400 / 1400 Chest Tube Drainage 20 / 20 Left 20 / 20 Right Mid-Axillary Chest 0 / 0 Other: # Voids 4 Date of Last Bowel Movement 01/14/18 # Bowel Movements 1 3 # Incontinent Bowel Movements 1 Weight On Admission 110 kg Narrative: GENERAL: Appears chronically ill.Very weak. Opens eyes. NECK: Trach in place. T bar with trach. CARDIOVASCULAR: Irregular , rhythm without murmurs, gallops, or rubs. RESPIRATORY: Breath sounds equal bilaterally. Poor effort.Occ Wheeze. GASTROINTESTINAL: PEG tube in place. Abdomen soft, non-tender, nondistended. MUSCULOSKELETAL: No cyanosis, mild edema. BACK: With decub ulcer. Nontender without obvious deformity. NEURO: Nonverbal, does not follow any commands. - Urinary Catheter Management Straight Cath placed during this visit: yes Urethral indwelling: Yes Reason for continuing: Severe pressure ulcer/wound Insertion date: 01/09/18 Insertion time: 08:00 Indwelling Urethral Catheter Cath placed during this visit: yes Reason for continuing: Severe pressure ulcer/wound Insertion date: 01/11/18 Insertion time: 16:18 Results - Labs CBC & Chem 7: 01/14/18 08:45 01/14/18 08:45 Laboratory Results - last 24 hr 01/13/18 01/13/18 01/14/18 16:48 23:42 05:50 WBC RBC Hgb Hct MCV MCH MCHC RDW Plt Count MPV PT INR APTT Sodium Potassium Chloride Carbon Dioxide Anion Gap BUN Creatinine Estimated GFR POC Glucose 204 H 222 H 242 H Random Glucose Calcium 01/14/18 01/14/18 01/14/18 08:45 08:45 08:45 WBC 13.5 H RBC 3.05 L Hgb 8.5 L Hct 27.5 L MCV 90.1 MCH 28.0 MCHC 31.1 L RDW 20.2 H Plt Count 426 MPV 9.0 PT 20.7 H INR 2.0 APTT 35.9 H Sodium 153 H Potassium 5.5 H Chloride 120 H Carbon Dioxide 24.0 Anion Gap 9 BUN 57 H Creatinine 1.58 H Estimated GFR 43 L POC Glucose Random Glucose 207 H Calcium 8.4 L 01/14/18 11:07 WBC RBC Hgb Hct MCV MCH MCHC RDW Plt Count MPV PT INR APTT Sodium Potassium Chloride Carbon Dioxide Anion Gap BUN Creatinine Estimated GFR POC Glucose 247 H Random Glucose Calcium Microbiology 01/11/18 06:55 Blood - Peripheral Aerobic Blood Culture - Final Xenia tropicalis 01/11/18 06:55 Blood - Peripheral Anaerobic Blood Culture - Preliminary No growth in 3 days 01/11/18 07:00 Blood - Peripheral Aerobic Blood Culture - Preliminary No growth in 3 days 01/11/18 07:00 Blood - Peripheral Anaerobic Blood Culture - Preliminary No growth in 3 days 01/09/18 12:25 Blood - Peripheral Aerobic Blood Culture - Final No growth in 5 days 01/09/18 12:25 Blood - Peripheral Anaerobic Blood Culture - Final No growth in 5 days 01/09/18 12:15 Blood - Peripheral Aerobic Blood Culture - Final Xenia tropicalis 01/09/18 12:15 Blood - Peripheral Anaerobic Blood Culture - Final No growth in 5 days - Imaging Impressions Abdomen/Pelvis CT 01/13/18 00:00 CONCLUSION: 1. Small bilateral pleural effusions and basilar infiltrates with bilateral chest tubes in place. 2. No evidence of ascites or bowel dilatation. Assessment and Plan - Assessment (1) Wound of sacral region Code(s): S31.000A - Unspecified open wound of lower back and pelvis without penetration into retroperitoneum, initial encounter Status: Acute Plan: Wound management . (2) CVA (cerebral vascular accident) Code(s): I63.9 - Cerebral infarction, unspecified Status: Acute (3) Encephalopathy Code(s): G93.40 - Encephalopathy, unspecified Status: Acute Plan: PT evaluation (4) NSTEMI (non-ST elevated myocardial infarction) Code(s): I21.4 - Non-ST elevation (NSTEMI) myocardial infarction Status: Resolved (5) Anemia Code(s): D64.9 - Anemia, unspecified Status: Acute (6) Respiratory failure with hypoxia and hypercapnia Code(s): J96.91 - Respiratory failure, unspecified with hypoxia; J96.92 - Respiratory failure, unspecified with hypercapnia Status: Resolved Plan: Continue trach suction and lavage prn. nebs qid , Duoneb (7) Optic neuritis Code(s): H46.9 - Unspecified optic neuritis Status: Resolved (8) Major neurocognitive disorder due to vascular disease, without behavioral disturbance, severe Code(s): F01.50 - Vascular dementia without behavioral disturbance Status: Acute (9) Status post tracheostomy Code(s): Z93.0 - Tracheostomy status Status: Acute Plan: T Bar at 35 % FIo2 . Duonebs q id prn (10) Status post tracheostomy Code(s): Z93.0 - Tracheostomy status Status: Acute (5) Anemia Qualifiers: Anemia type: unspecified type Qualified Code(s): D64.9 - Anemia, unspecified
[2018-01-15] MEDS: Insulin NovoLIN Regular Correctional Sugar Inj SQ SCH ×5 (01:20→23:48)
[2018-01-15] MEDS: Famotidine 20 MG Tablet PO SCH ×2 (08:25→22:16)
[2018-01-15] MEDS: Polyethylene Glycol 3350 17 GM Packet PO SCH (08:26)
[2018-01-15] MEDS: Insulin Detemir Inj 1,000 UNIT/10 ML Vial SQ SCH ×3 (08:26→22:17)
[2018-01-15] MEDS: Chlorhexidine 0.12% Oral Kit 15 ML UDC SWISH-SPIT SCH ×2 (08:27→22:18)
[2018-01-15] MEDS: Methylphenidate HCl 5 MG Tablet PO SCH ×2 (08:27→12:47)
[2018-01-15] MEDS: Hydrocortisone Acetate 25 MG Supp RECTAL SCH ×2 (08:27→22:18)
[2018-01-15] MEDS: Collagenase Oint 30 GM Tube TOPICAL SCH (08:28)
[2018-01-15] MEDS: Acetaminophen 325 MG Tablet PO PRN ×2 (08:29→18:49)
[2018-01-15 08:50] LABS: Activated Partial Thrombo Time 34.8 sec (24.3-30.1); INR 1.8 Ratio; Prothrombin Time 18.1 sec (9.8-11.6)
[2018-01-15 09:18] LABS: Calcium 8.2 mg/dL (8.5-10.1); Carbon Dioxide 24.4 meq/L (21.0-32.0)
[2018-01-15 09:21] LABS: Potassium 5.9 meq/L (3.5-5.1)
[2018-01-15] MEDS ORDERED: Sodium Polystyrene Sulfonate/Sorbitol Liq 15 GM/60 ML UDC PO ONE (09:28)
--- NOTE | 2018-01-15 09:29 | P.PNIM ---
Subjective Interval history: No overnight events, still having low-grade fever, no changes in mental status, nonverbal, does not follow any commands. Physical Exam Vital signs: Vital Signs 01/14/18 10:12 01/14/18 12:00 01/14/18 16:00 Temperature 99.5 F 100.1 F H Pulse Rate 115 H 114 H 110 H Respiratory Rate 18 17 22 Blood Pressure 124/73 118/69 Pulse Oximetry 99 99 01/14/18 20:00 01/14/18 20:13 01/14/18 22:00 Temperature 100 F H Pulse Rate 110 H 111 H 110 H Respiratory Rate 19 18 Blood Pressure 105/58 L Pulse Oximetry 96 98 01/15/18 01:00 01/15/18 06:00 01/15/18 08:00 Temperature 99 F 99 F 98.3 F Pulse Rate 108 H 105 H 112 H Respiratory Rate 20 20 20 Blood Pressure 120/60 130/67 110/56 L Pulse Oximetry 96 97 98 Intake & Output 01/14/18 01/15/18 01/15/18 18:59 06:59 18:59 Intake Total 1000 / 1000 1400 / 1400 Output Total 1000 / 1000 1830 / 1830 Balance 0 / 0 -430 / -430 Weight 80 kg Intake: IV 1000 / 1000 1400 / 1400 1/2 Normal Saline Inj 1,000 ML 1000 / 1000 1000 / 1000 @ 100 mls/hr IV.CONT .Q10H [facility] Rx#:[id number] Diflucan 400 mg Premix Bag 200 400 / 400 ML @ 100 mls/hr IV.SIG Q24H [facility] Rx#:[id number] Oral 0 / 0 Output: Urine 1000 / 1000 Urine Amount (Catheter) 1700 / 1700 Indwelling Urethral Catheter 1700 / 1700 Chest Tube Drainage 130 / 130 Left 30 / 30 Right Mid-Axillary Chest 100 / 100 Other: Date of Last Bowel Movement 01/14/18 01/14/18 01/14/18 # Incontinent Bowel Movements 1 1 Narrative: GENERAL: Appears chronically ill. NECK: Trach in place. T bar with trach. CARDIOVASCULAR: Tachycardic, regular rhythm without murmurs, gallops, or rubs. RESPIRATORY: Bronchial breath sounds. Poor effort. GASTROINTESTINAL: PEG tube in place. Abdomen soft, non-tender, nondistended. Lizarraga catheter in place with yellow urine. MUSCULOSKELETAL: No cyanosis, mild edema. BACK: With decub ulcer. NEURO: Nonverbal, does not follow any commands. - Urinary Catheter Management Straight Cath placed during this visit: yes Urethral indwelling: Yes Reason for continuing: Severe pressure ulcer/wound Insertion date: 01/09/18 Insertion time: 08:00 Indwelling Urethral Catheter Cath placed during this visit: yes Reason for continuing: Severe pressure ulcer/wound Insertion date: 01/11/18 Insertion time: 16:18 Results - Labs CBC & Chem 7: 01/14/18 08:45 01/14/18 08:45 Laboratory Results - last 24 hr 01/14/18 01/14/18 01/14/18 08:45 08:45 08:45 WBC 13.5 H RBC 3.05 L Hgb 8.5 L Hct 27.5 L MCV 90.1 MCH 28.0 MCHC 31.1 L RDW 20.2 H Plt Count 426 MPV 9.0 PT 20.7 H INR 2.0 APTT 35.9 H Sodium 153 H Potassium 5.5 H Chloride 120 H Carbon Dioxide 24.0 Anion Gap 9 BUN 57 H Creatinine 1.58 H Estimated GFR 43 L POC Glucose Random Glucose 207 H Calcium 8.4 L 01/14/18 01/14/18 01/15/18 11:07 17:59 00:23 WBC RBC Hgb Hct MCV MCH MCHC RDW Plt Count MPV PT INR APTT Sodium Potassium Chloride Carbon Dioxide Anion Gap BUN Creatinine Estimated GFR POC Glucose 247 H 323 H 230 H Random Glucose Calcium 01/15/18 01/15/18 01/15/18 06:09 07:22 07:49 WBC RBC Hgb Hct MCV MCH MCHC RDW Plt Count MPV PT 18.1 H INR 1.8 APTT 34.8 H Sodium Potassium Chloride Carbon Dioxide Anion Gap BUN Creatinine Estimated GFR POC Glucose 217 H 218 H Random Glucose Calcium Microbiology 01/11/18 06:55 Blood - Peripheral Aerobic Blood Culture - Final Xenia tropicalis 01/11/18 06:55 Blood - Peripheral Anaerobic Blood Culture - Preliminary No growth in 3 days 01/11/18 07:00 Blood - Peripheral Aerobic Blood Culture - Preliminary No growth in 3 days 01/11/18 07:00 Blood - Peripheral Anaerobic Blood Culture - Preliminary No growth in 3 days 01/09/18 12:25 Blood - Peripheral Aerobic Blood Culture - Final No growth in 5 days 01/09/18 12:25 Blood - Peripheral Anaerobic Blood Culture - Final No growth in 5 days 01/09/18 12:15 Blood - Peripheral Aerobic Blood Culture - Final Xenia tropicalis 01/09/18 12:15 Blood - Peripheral Anaerobic Blood Culture - Final No growth in 5 days Assessment and Plan - Assessment (1) Encephalopathy Code(s): G93.40 - Encephalopathy, unspecified Status: Acute (2) CVA (cerebral vascular accident) Code(s): I63.9 - Cerebral infarction, unspecified Status: Acute (3) Wound of sacral region Code(s): S31.000A - Unspecified open wound of lower back and pelvis without penetration into retroperitoneum, initial encounter Status: Acute (4) NSTEMI (non-ST elevated myocardial infarction) Code(s): I21.4 - Non-ST elevation (NSTEMI) myocardial infarction Status: Resolved (5) Anemia Code(s): D64.9 - Anemia, unspecified Status: Acute (6) Respiratory failure with hypoxia and hypercapnia Code(s): J96.91 - Respiratory failure, unspecified with hypoxia; J96.92 - Respiratory failure, unspecified with hypercapnia Status: Resolved (7) Optic neuritis Code(s): H46.9 - Unspecified optic neuritis Status: Resolved - Plan This is a 77-year-old male who initially presented with vision changes with concern for optic neuritis versus temporal arteritis. Hospital course complicated by NSTEMI, E. coli urinary tract infection, rectal bleeding with acute anemia. He became lethargic, admitted to the intensive care unit and found to have CVA. CTA head and neck revealed atherosclerotic disease. After giving TPA, the patient had tonic-clonic seizure and became obtunded with acute hypoxic and hypercarbic respiratory failure, intubated. Patient was then transferred to the hospitalist service when patient was more stable. CVA,Optic neuritis with encephalopathy, and seizures. 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 Repeat MRI and change. Patient also had seizures, EEG showed diffuse encephalopathy. -Continue Coumadin, statin, Ritalin, Keppra. Neuropsychology following. Was on steroids for optic neuritis. Encephalopathy persists, no change in mental status, family continues to be aggressive. Recurrent UTI-prior history of ESBL E. coli, Sacral decub with possible underlying infection, osteomyelitis. Fungemia - Sacral decub has eschar with possible underlying osteomyelitis. Patient family refused surgical sacral debridement after seen by plastic surgery. Wound care and Dr. Upton following. 12/31 Wound cx: ESBL E.coli -Lizarraga catheter changed 01/09/2018, Urine culture on 01/09 grew Pseudomonas pansensitive, -Status post ciprofloxacin and imipenem. - echocardiogram on 01/12, no vegetation. Chest x-ray stable from 01/13/2018. -Repeat blood cultures still growing Xenia tropicalis, switched back to fluconazole per infectious disease. Follow-up repeat blood culture, once documented sterility, will continue fluconazole for 2 weeks, may switch to oral on discharge. Ophthalmology has seen the patient, no fungal keratitis or fungal eye infection. Acute on chronic respiratory failure status post tracheostomy Bilateral Pleural effusion, with healthcare associated pneumonia - sputum culture grew Klebsiella and E. coli ESBL. Pigtail catheters in place, pleural fluid cultures negative consistent with transudative effusion. Chest x- ray stable from 01/13/2018. Status post imipenem and ciprofloxacin. -Continue bronchodilators, pulmonary toilet. On tracheostomy, pulmonary following. Acute renal failure on top of chronic kidney disease-creatinine is increasing, from normal, up to 1.62, check ultrasound of the kidneys, check urinalysis, will switch IVF to normal saline. Recheck BMP later today. Good urine output. Will give a dose of lasix. DM type 2 - A1C 9.6, BGs still high, Levemir increased to 10 units twice a day, cont sliding scale insulin and Glucerna. CHRONIC RESOLVED ISSUES: Scrotal Edema/ulcerations - seen by Urology: continue with clean intermittent catheter as needed, scrotal elevation NSTEMI Echo 10/19: LV systolic function is moderately reduced, EF 40-45%. continue Coreg and statin. Anemia secondary to GI bleed- Status post EGD colonoscopy. GI has signed off, patient with healed rectal ulcers and hemorrhoids. Continue Pepcid. FEN Hypernatremia-continue free water, cont half-normal saline. Recheck BMP tomorrow. Hyperkalemia-we will give a dose of Kayexalate and a small dose of lasix Continue tube feeds-Glucerna 1.5 with goal rate 60ml/hr GI prophylaxis- on Pepcid DVT prophylaxis-on coumadin (5) Anemia Qualifiers: Anemia type: unspecified type Qualified Code(s): D64.9 - Anemia, unspecified
[2018-01-15] MEDS ORDERED: Sodium Chlor 0.9% Inj 100 ML IV.SIG SCH (10:00)
--- NOTE | 2018-01-15 15:31 | P.PN ---
Subjective Interval history: Sleepy. No change overall. On a T Bar 35 % No fever. Has a Sacral wound. Physical Exam Vital signs: Vital Signs 01/14/18 16:00 01/14/18 20:00 01/14/18 20:13 Temperature 100.1 F H 100 F H Pulse Rate 110 H 110 H 111 H Respiratory Rate 22 19 18 Blood Pressure 118/69 105/58 L Pulse Oximetry 99 96 98 01/14/18 22:00 01/15/18 01:00 01/15/18 06:00 Temperature 99 F 99 F Pulse Rate 110 H 108 H 105 H Respiratory Rate 20 20 Blood Pressure 120/60 130/67 Pulse Oximetry 96 97 01/15/18 07:00 01/15/18 08:00 01/15/18 09:26 Temperature 98.3 F Pulse Rate 112 H Respiratory Rate 20 Blood Pressure 110/56 L Pulse Oximetry 100 98 100 01/15/18 12:00 Temperature 98.0 F Pulse Rate 109 H Respiratory Rate 20 Blood Pressure 106/65 Pulse Oximetry 100 Intake & Output 01/14/18 01/15/18 01/15/18 18:59 06:59 18:59 Intake Total 1000 / 1000 1400 / 1400 Output Total 1000 / 1000 1830 / 1830 Balance 0 / 0 -430 / -430 Weight 80 kg Intake: IV 1000 / 1000 1400 / 1400 1/2 Normal Saline Inj 1,000 ML 1000 / 1000 1000 / 1000 @ 100 mls/hr IV.CONT .Q10H [facility] Rx#:[id number] Diflucan 400 mg Premix Bag 200 400 / 400 ML @ 100 mls/hr IV.SIG Q24H [facility] Rx#:[id number] Oral 0 / 0 Output: Urine 1000 / 1000 Urine Amount (Catheter) 1700 / 1700 Indwelling Urethral Catheter 1700 / 1700 Chest Tube Drainage 130 / 130 Left 30 / 30 Right Mid-Axillary Chest 100 / 100 Other: Date of Last Bowel Movement 01/14/18 01/14/18 01/15/18 # Bowel Movements 1 # Incontinent Bowel Movements 1 1 Narrative: GENERAL: Appears chronically ill.on T Bar with Trach NECK: Trach in place. T bar with trach. CARDIOVASCULAR: S1 S2, regular rhythm without murmurs, gallops, or rubs. RESPIRATORY: Bronchial breath sounds. Poor effort. GASTROINTESTINAL: PEG tube in place. Abdomen soft, non-tender, nondistended. MUSCULOSKELETAL: No cyanosis, mild edema. BACK: With decub ulcer. NEURO: Nonverbal, does not follow any commands.Weak in Limbs - Urinary Catheter Management Straight Cath placed during this visit: yes Urethral indwelling: Yes Reason for continuing: Severe pressure ulcer/wound Insertion date: 01/09/18 Insertion time: 08:00 Indwelling Urethral Catheter Cath placed during this visit: yes Reason for continuing: Severe pressure ulcer/wound Insertion date: 01/11/18 Insertion time: 16:18 Results - Labs CBC & Chem 7: 01/14/18 08:45 01/15/18 07:22 Laboratory Results - last 24 hr 01/14/18 01/15/18 01/15/18 17:59 00:23 06:09 PT INR APTT Sodium Potassium Chloride Carbon Dioxide Anion Gap BUN Creatinine Estimated GFR POC Glucose 323 H 230 H 217 H Random Glucose Calcium 01/15/18 01/15/18 01/15/18 07:22 07:22 07:49 PT 18.1 H INR 1.8 APTT 34.8 H Sodium 151 H Potassium 5.9 H Chloride 118 H Carbon Dioxide 24.4 Anion Gap 9 BUN 58 H Creatinine 1.62 H Estimated GFR 41 L POC Glucose 218 H Random Glucose 177 H Calcium 8.2 L 01/15/18 13:11 PT INR APTT Sodium Potassium Chloride Carbon Dioxide Anion Gap BUN Creatinine Estimated GFR POC Glucose 211 H Random Glucose Calcium Microbiology 01/11/18 06:55 Blood - Peripheral Aerobic Blood Culture - Final Xenia tropicalis 01/11/18 06:55 Blood - Peripheral Anaerobic Blood Culture - Preliminary No growth in 4 days 01/11/18 07:00 Blood - Peripheral Aerobic Blood Culture - Preliminary No growth in 4 days 01/11/18 07:00 Blood - Peripheral Anaerobic Blood Culture - Preliminary No growth in 4 days Assessment and Plan - Assessment (1) Wound of sacral region Code(s): S31.000A - Unspecified open wound of lower back and pelvis without penetration into retroperitoneum, initial encounter Status: Acute (2) CVA (cerebral vascular accident) Code(s): I63.9 - Cerebral infarction, unspecified Status: Acute (3) Encephalopathy Code(s): G93.40 - Encephalopathy, unspecified Status: Acute (4) NSTEMI (non-ST elevated myocardial infarction) Code(s): I21.4 - Non-ST elevation (NSTEMI) myocardial infarction Status: Resolved (5) Anemia Code(s): D64.9 - Anemia, unspecified Status: Acute (6) Respiratory failure with hypoxia and hypercapnia Code(s): J96.91 - Respiratory failure, unspecified with hypoxia; J96.92 - Respiratory failure, unspecified with hypercapnia Status: Resolved (7) Optic neuritis Code(s): H46.9 - Unspecified optic neuritis Status: Resolved (8) Major neurocognitive disorder due to vascular disease, without behavioral disturbance, severe Code(s): F01.50 - Vascular dementia without behavioral disturbance Status: Acute (9) Status post tracheostomy Code(s): Z93.0 - Tracheostomy status Status: Acute (10) Status post tracheostomy Code(s): Z93.0 - Tracheostomy status Status: Acute - Plan 1. T bar at 30 %. 2. Cont antibiotics per ID/ Fungal sepsis 3. Nebs qid , Duoneb 4. Continue PT and trach suction and lavage 5. CXR ,CBC Wednesday (5) Anemia Qualifiers: Anemia type: unspecified type Qualified Code(s): D64.9 - Anemia, unspecified
--- NOTE | 2018-01-15 15:46 | US ---
EXAM DATE: 01/15/2018 3:28 PM EDT AGE/SEX: 77 years / Male INDICATIONS: Acute renal failure. CLINICAL DATA: This is the patient's subsequent encounter. Patient reports that signs and symptoms h ave been present for 1 day and indicates a pain score of Nonresponsive. MEDICAL/SURGICAL HISTORY: . Blind right eye. Confusion. Weakness. Diabetes. Hallucinations. . Cardiac stents x2. Left leg surgery. COMPARISON: [facility] [place] & PELVIS W CONTRAST, 01/13/2018. . MEASUREMENTS: Right Kidney:__10.4 x 4.6 x 4.4 cm Left Kidney:__10.2 x 4.7 x 4.9 cm FINDINGS: Right Kidney: Normal echotexture and cortical thickness. No mass or hydronephrosis. Left Kidney: Normal echotexture and cortical thickness. No mass or hydronephrosis. Bladder: Lizarraga catheter is present. Bladder decompressed. Other: None. CONCLUSION: 1. Negative renal sonogram. Electronically signed by: Reid Atkins MD 01/15/2018 3:45 PM EDT
[2018-01-15 20:47] LABS: Calcium 8.1 mg/dL (8.5-10.1); Carbon Dioxide 23.5 meq/L (21.0-32.0); Potassium 5.4 meq/L (3.5-5.1)
[2018-01-16] MEDS: Acetaminophen 325 MG Tablet PO PRN (06:09)
[2018-01-16] MEDS: Insulin NovoLIN Regular Correctional Sugar Inj SQ SCH ×3 (06:10→18:16)
[2018-01-16] MEDS: Methylphenidate HCl 5 MG Tablet PO SCH ×2 (08:46→12:54)
[2018-01-16] MEDS: Polyethylene Glycol 3350 17 GM Packet PO SCH (08:46)
[2018-01-16] MEDS: Hydrocortisone Acetate 25 MG Supp RECTAL SCH ×2 (08:46→21:30)
[2018-01-16] MEDS: Insulin Detemir Inj 1,000 UNIT/10 ML Vial SQ SCH ×2 (08:46→21:30)
[2018-01-16] MEDS: Famotidine 20 MG Tablet PO SCH ×2 (08:46→21:29)
[2018-01-16] MEDS: Chlorhexidine 0.12% Oral Kit 15 ML UDC SWISH-SPIT SCH (08:46)
[2018-01-16] MEDS: Collagenase Oint 30 GM Tube TOPICAL SCH (08:47)
[2018-01-16] MEDS ORDERED: Ibuprofen 600 MG Tablet PO PRN (08:57)
[2018-01-16 09:37] LABS: Activated Partial Thrombo Time 35.9 sec (24.3-30.1); INR 2.3 Ratio; Prothrombin Time 23.2 sec (9.8-11.6)
--- NOTE | 2018-01-16 11:11 | P.PNIM ---
Subjective Interval history: Still having fever, T-max 102, no increase in secretions, right appears clean. Still nonverbal and does not follow any commands, varies lethargic. Discussed with patient's daughter, she would like to try to get the patient off Keppra for seizure prophylaxis since he only had one episode of seizures which was back when he had CVA. Physical Exam Vital signs: Vital Signs 01/15/18 12:00 01/15/18 16:00 01/15/18 19:00 Temperature 98.0 F 98.0 F Pulse Rate 109 H 110 H Respiratory Rate 20 20 Blood Pressure 106/65 110/62 Pulse Oximetry 100 99 99 01/15/18 20:00 01/15/18 20:38 01/16/18 00:00 Temperature 101.9 F H 99.6 F Pulse Rate 109 H 106 H 106 H Respiratory Rate 18 22 18 Blood Pressure 104/59 L 99/60 L Pulse Oximetry 99 100 100 01/16/18 04:00 01/16/18 04:09 01/16/18 08:00 Temperature 102.6 F H 98.3 F Pulse Rate 110 H 108 H Respiratory Rate 18 18 Blood Pressure 108/63 110/67 Pulse Oximetry 97 98 97 01/16/18 08:22 01/16/18 08:23 Temperature Pulse Rate 109 H Respiratory Rate 16 Blood Pressure Pulse Oximetry 98 Intake & Output 01/15/18 01/16/18 01/16/18 18:59 06:59 18:59 Intake Total 200 / 200 Output Total 700 / 700 Balance -700 / -700 200 / 200 Weight 79.6 kg Intake: IV 200 / 200 Diflucan 400 mg Premix Bag 200 200 / 200 ML @ 100 mls/hr IV.SIG Q24H [facility] Rx#:[id number] Output: Urine 700 / 700 Other: Date of Last Bowel Movement 01/15/18 01/15/18 01/16/18 # Bowel Movements 1 # Incontinent Bowel Movements 1 Narrative: GENERAL: Appears chronically ill. Nonverbal. Febrile. NECK: Trach in place. Trach site clean, no discharge. CARDIOVASCULAR: Tachycardic, regular rhythm without murmurs, gallops, or rubs. RESPIRATORY: Bronchial breath sounds. Poor effort. GASTROINTESTINAL: PEG tube in place, PEG site clean. Abdomen soft, non-tender, nondistended. Lizarraga catheter in place with yellow urine. MUSCULOSKELETAL: No cyanosis, mild edema. BACK: With decub ulcer. NEURO: Nonverbal, does not follow any commands. - Urinary Catheter Management Straight Cath placed during this visit: yes Urethral indwelling: Yes Reason for continuing: Severe pressure ulcer/wound Insertion date: 01/09/18 Insertion time: 08:00 Indwelling Urethral Catheter Cath placed during this visit: yes Reason for continuing: Other continuation reason Insertion date: 01/11/18 Insertion time: 16:18 Results - Labs CBC & Chem 7: 01/14/18 08:45 01/15/18 19:31 Laboratory Results - last 24 hr 01/15/18 01/15/18 01/15/18 13:11 19:31 23:17 PT INR APTT Sodium 148 H Potassium 5.4 H Chloride 118 H Carbon Dioxide 23.5 Anion Gap 7 BUN 59 H Creatinine 1.67 H Estimated GFR 40 L POC Glucose 211 H 245 H Random Glucose 195 H Calcium 8.1 L 01/16/18 01/16/18 01/16/18 05:53 07:20 07:51 PT 23.2 H INR 2.3 APTT 35.9 H Sodium Potassium Chloride Carbon Dioxide Anion Gap BUN Creatinine Estimated GFR POC Glucose 260 H 251 H Random Glucose Calcium Microbiology 01/11/18 06:55 Blood - Peripheral Aerobic Blood Culture - Final Xenia tropicalis 01/11/18 06:55 Blood - Peripheral Anaerobic Blood Culture - Final No growth in 5 days 01/11/18 07:00 Blood - Peripheral Aerobic Blood Culture - Final No growth in 5 days 01/11/18 07:00 Blood - Peripheral Anaerobic Blood Culture - Final No growth in 5 days - Imaging Impressions Abdomen/Bladder Ultrasound 01/15/18 00:00 CONCLUSION: 1. Negative renal sonogram. Assessment and Plan - Assessment (1) Encephalopathy Code(s): G93.40 - Encephalopathy, unspecified Status: Acute (2) CVA (cerebral vascular accident) Code(s): I63.9 - Cerebral infarction, unspecified Status: Acute (3) Wound of sacral region Code(s): S31.000A - Unspecified open wound of lower back and pelvis without penetration into retroperitoneum, initial encounter Status: Acute (4) NSTEMI (non-ST elevated myocardial infarction) Code(s): I21.4 - Non-ST elevation (NSTEMI) myocardial infarction Status: Resolved (5) Anemia Code(s): D64.9 - Anemia, unspecified Status: Acute (6) Respiratory failure with hypoxia and hypercapnia Code(s): J96.91 - Respiratory failure, unspecified with hypoxia; J96.92 - Respiratory failure, unspecified with hypercapnia Status: Resolved (7) Optic neuritis Code(s): H46.9 - Unspecified optic neuritis Status: Resolved - Plan This is a 77-year-old male who initially presented with vision changes with concern for optic neuritis versus temporal arteritis. Hospital course complicated by NSTEMI, E. coli urinary tract infection, rectal bleeding with acute anemia. He became lethargic, admitted to the intensive care unit and found to have CVA. CTA head and neck revealed atherosclerotic disease. After giving TPA, the patient had tonic-clonic seizure and became obtunded with acute hypoxic and hypercarbic respiratory failure, intubated. Patient was then transferred to the hospitalist service when patient was more stable. CVA,Optic neuritis with encephalopathy, and seizures. 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 Repeat MRI unchanged. Patient also had seizures, EEG showed diffuse encephalopathy. -Continue Coumadin, statin, Ritalin. After discussion patient's daughter, she would like to try to get the patient off Keppra and hopefully will improve his mental status. She is aware that there is risk for seizures. Neuropsychology following. Was on steroids for optic neuritis. Encephalopathy persists, no change in mental status, family continues to be aggressive. Recurrent UTI-prior history of ESBL E. coli, Sacral decub with possible underlying infection, osteomyelitis. Fungemia - Sacral decub has eschar with possible underlying osteomyelitis. Patient family refused surgical sacral debridement after seen by plastic surgery. Wound care and Dr. Upton following. 12/31 Wound cx: ESBL E.coli -Lizarraga catheter changed 01/09/2018, Urine culture on 01/09 grew Pseudomonas pansensitive, -Status post ciprofloxacin and imipenem. - echocardiogram on 01/12, no vegetation. Chest x-ray stable from 01/13/2018. -Repeat blood cultures still growing Xenia tropicalis, switched back to fluconazole per infectious disease. Still having fever, recheck blood culture today, check urinalysis, WBC went up. Might need imaging to look for abscess/ fungus ball collection. Discussed with infectious disease. Ophthalmology has seen the patient, no fungal keratitis or fungal eye infection. Acute on chronic respiratory failure status post tracheostomy Bilateral Pleural effusion, with healthcare associated pneumonia - sputum culture grew Klebsiella and E. coli ESBL. Pigtail catheters in place, pleural fluid cultures negative consistent with transudative effusion. Chest x- ray stable from 01/13/2018. Status post imipenem and ciprofloxacin. -Continue bronchodilators, pulmonary toilet. On tracheostomy, pulmonary following. Acute renal failure on top of chronic kidney disease-creatinine is increasing, from normal, up to 1.62, check follow-up urinalysis, continue normal saline, follow-up BMP today. Kidney ultrasound unremarkable. Status post Lasix. If worsening, might need to consult nephrology. DM type 2 - A1C 9.6, BGs still high, Levemir increased to 10 units twice a day on 01/15/2018, increase further if BG's are still high., cont sliding scale insulin and Glucerna. CHRONIC RESOLVED ISSUES: Scrotal Edema/ulcerations - seen by Urology: continue with clean intermittent catheter as needed, scrotal elevation NSTEMI Echo 10/19: LV systolic function is moderately reduced, EF 40-45%. continue Coreg and statin. Anemia secondary to GI bleed- Status post EGD colonoscopy. GI has signed off, patient with healed rectal ulcers and hemorrhoids. Continue Pepcid. FEN Hypernatremia-continue free water, cont half-normal saline. Awaiting BMP Hyperkalemia- s/p Kayexalate and a small dose of lasix, awaiting BMP. Continue tube feeds-Glucerna 1.5 with goal rate 60ml/hr GI prophylaxis- on Pepcid DVT prophylaxis-on coumadin (5) Anemia Qualifiers: Anemia type: unspecified type Qualified Code(s): D64.9 - Anemia, unspecified
[2018-01-16 13:33] LABS: Baso # (Auto) 0.1 th/mm3 (0.0-0.2); Baso % (Auto) 0.4 % (0.0-2.0); Eos # (Auto) 0.3 th/mm3 (0.0-0.4); Eos % (Auto) 2.4 % (0.0-4.0); Hematocrit 28.1 % (39.0-51.0); Hemoglobin 8.5 gm/dL (13.0-17.0); Lymph # (Auto) 4.7 th/mm3 (1.0-4.8); Lymph % (Auto) 37.6 % (9.0-44.0); Mean Corpuscular Hemoglobin 27.5 pg (27.0-34.0); Mean Corpuscular Volume 90.7 fL (80.0-100.0); Mean Platelet Volume 8.8 fL (7.0-11.0); Mono % (Auto) 8.2 % (0.0-8.0); Neut # (Auto) 6.4 th/mm3 (1.8-7.7); Neut % (Auto) 51.4 % (16.0-70.0); Platelet Count 450 th/mm3 (150-450); Red Cell Distribution Width 19.7 % (11.6-17.2); White Blood Count 12.5 th/mm3 (4.0-11.0)
[2018-01-16 13:38] LABS: Mean Corpuscular HGB Conc 30.4 % (32.0-36.0)
[2018-01-16 13:53] LABS: Calcium 8.2 mg/dL (8.5-10.1); Carbon Dioxide 26.1 meq/L (21.0-32.0); Potassium 5.5 meq/L (3.5-5.1)
[2018-01-16] MEDS: Sodium Chloride 0.45 % Inj 1,000 ML IV.CONT SCH (16:31)
--- NOTE | 2018-01-16 16:38 | P.PN ---
Subjective Interval history: No change. he is lethargic and on a t bar at 35 5 Trach secretions are clear. has Fungal sepsis Physical Exam Vital signs: Vital Signs 01/15/18 19:00 01/15/18 20:00 01/15/18 20:38 Temperature 101.9 F H Pulse Rate 109 H 106 H Respiratory Rate 18 22 Blood Pressure 104/59 L Pulse Oximetry 99 99 100 01/16/18 00:00 01/16/18 04:00 01/16/18 04:09 Temperature 99.6 F 102.6 F H Pulse Rate 106 H 110 H Respiratory Rate 18 18 Blood Pressure 99/60 L 108/63 Pulse Oximetry 100 97 98 01/16/18 08:00 01/16/18 08:22 01/16/18 08:23 Temperature 98.3 F Pulse Rate 108 H 109 H Respiratory Rate 18 16 Blood Pressure 110/67 Pulse Oximetry 97 98 Intake & Output 01/15/18 01/16/18 01/16/18 18:59 06:59 18:59 Intake Total 200 / 200 Output Total 700 / 700 Balance -700 / -700 200 / 200 Weight 79.6 kg Intake: IV 200 / 200 Diflucan 400 mg Premix Bag 200 200 / 200 ML @ 100 mls/hr IV.SIG Q24H [facility] Rx#:[id number] Output: Urine 700 / 700 Other: Date of Last Bowel Movement 01/15/18 01/16/18 01/16/18 # Bowel Movements 1 # Incontinent Bowel Movements 1 Narrative: GENERAL: Appears chronically ill. Nonverbal.Sleepy. Febrile. NECK: Trach in place. Trach site clean, no discharge. CARDIOVASCULAR: Tachycardic, Irregular rhythm without murmurs, gallops, or rubs. RESPIRATORY: Bronchial breath sounds. Poor effort. GASTROINTESTINAL: PEG tube in place, PEG site clean. Abdomen soft, non-tender, nondistended. Lizarraga catheter in place with yellow urine. MUSCULOSKELETAL: No cyanosis, mild edema. BACK: With decub ulcer. NEURO: Nonverbal, does not follow any commands. - Urinary Catheter Management Straight Cath placed during this visit: yes Urethral indwelling: Yes Reason for continuing: Severe pressure ulcer/wound Insertion date: 01/09/18 Insertion time: 08:00 Indwelling Urethral Catheter Cath placed during this visit: yes Reason for continuing: Other continuation reason Insertion date: 01/11/18 Insertion time: 16:18 Results - Labs CBC & Chem 7: 01/16/18 13:15 01/16/18 13:15 Laboratory Results - last 24 hr 01/15/18 01/15/18 01/16/18 19:31 23:17 05:53 WBC RBC Hgb Hct MCV MCH MCHC RDW Plt Count MPV Neut % (Auto) Lymph % (Auto) [place] % (Auto) Eos % (Auto) Baso % (Auto) Neut # (Auto) Lymph # (Auto) [place] # (Auto) Eos # (Auto) Baso # (Auto) WBC Differential Differential Comment PT INR APTT Sodium 148 H Potassium 5.4 H Chloride 118 H Carbon Dioxide 23.5 Anion Gap 7 BUN 59 H Creatinine 1.67 H Estimated GFR 40 L POC Glucose 245 H 260 H Random Glucose 195 H Calcium 8.1 L 01/16/18 01/16/18 01/16/18 07:20 07:51 11:38 WBC RBC Hgb Hct MCV MCH MCHC RDW Plt Count MPV Neut % (Auto) Lymph % (Auto) [place] % (Auto) Eos % (Auto) Baso % (Auto) Neut # (Auto) Lymph # (Auto) [place] # (Auto) Eos # (Auto) Baso # (Auto) WBC Differential Differential Comment PT 23.2 H INR 2.3 APTT 35.9 H Sodium Potassium Chloride Carbon Dioxide Anion Gap BUN Creatinine Estimated GFR POC Glucose 251 H 203 H Random Glucose Calcium 01/16/18 01/16/18 13:15 13:15 WBC 12.5 H RBC 3.10 L Hgb 8.5 L Hct 28.1 L MCV 90.7 MCH 27.5 MCHC 30.4 L RDW 19.7 H Plt Count 450 MPV 8.8 Neut % (Auto) 51.4 Lymph % (Auto) 37.6 [place] % (Auto) 8.2 H Eos % (Auto) 2.4 Baso % (Auto) 0.4 Neut # (Auto) 6.4 Lymph # (Auto) 4.7 [place] # (Auto) 1.0 H Eos # (Auto) 0.3 Baso # (Auto) 0.1 WBC Differential . Differential Comment Auto diff final PT INR APTT Sodium 150 H Potassium 5.5 H Chloride 118 H Carbon Dioxide 26.1 Anion Gap 6 BUN 60 H Creatinine 1.73 H Estimated GFR 38 L POC Glucose Random Glucose 176 H Calcium 8.2 L Microbiology 01/11/18 06:55 Blood - Peripheral Aerobic Blood Culture - Final Xenia tropicalis 01/11/18 06:55 Blood - Peripheral Anaerobic Blood Culture - Final No growth in 5 days 01/11/18 07:00 Blood - Peripheral Aerobic Blood Culture - Final No growth in 5 days 01/11/18 07:00 Blood - Peripheral Anaerobic Blood Culture - Final No growth in 5 days Assessment and Plan - Assessment (1) Wound of sacral region Code(s): S31.000A - Unspecified open wound of lower back and pelvis without penetration into retroperitoneum, initial encounter Status: Acute (2) CVA (cerebral vascular accident) Code(s): I63.9 - Cerebral infarction, unspecified Status: Acute (3) Encephalopathy Code(s): G93.40 - Encephalopathy, unspecified Status: Acute (4) NSTEMI (non-ST elevated myocardial infarction) Code(s): I21.4 - Non-ST elevation (NSTEMI) myocardial infarction Status: Resolved (5) Anemia Code(s): D64.9 - Anemia, unspecified Status: Acute (6) Respiratory failure with hypoxia and hypercapnia Code(s): J96.91 - Respiratory failure, unspecified with hypoxia; J96.92 - Respiratory failure, unspecified with hypercapnia Status: Resolved (7) Optic neuritis Code(s): H46.9 - Unspecified optic neuritis Status: Resolved (8) Major neurocognitive disorder due to vascular disease, without behavioral disturbance, severe Code(s): F01.50 - Vascular dementia without behavioral disturbance Status: Acute (9) Status post tracheostomy Code(s): Z93.0 - Tracheostomy status Status: Acute (10) Status post tracheostomy Code(s): Z93.0 - Tracheostomy status Status: Acute - Plan 1. T bar at 28 %.Keep sat >90 2. Cont antibiotics per ID/ Fungal sepsis 3. Nebs qid , Duoneb 4. Continue PT and trach suction and lavage 5. CXR ,BMP CBC AM 6. Tube feeds at 60 CC (5) Anemia Qualifiers: Anemia type: unspecified type Qualified Code(s): D64.9 - Anemia, unspecified
--- NOTE | 2018-01-16 23:11 | P.PNID ---
Subjective Remarks: low grade fever remains essentially unresponsive Yeast in blood C. tropicalis in another blood clx from 01/11 2 D echo neg for veg's ophtha: neg for fungal balls CT A/P not sugg of hepatosplenic candidiasis urine clx negaive Antibiotics: diflucan Lines: periferal Lines ok Past Medical History: reviewed Allergies/Adverse Reactions: Allergies No Known Allergies Allergy (Verified 12/25/17 11:22) Objective Vital Signs 01/16/18 00:00 01/16/18 04:00 01/16/18 04:09 Temperature 99.6 F 102.6 F H Pulse Rate 106 H 110 H Respiratory Rate 18 18 Blood Pressure 99/60 L 108/63 Pulse Oximetry 100 97 98 01/16/18 08:00 01/16/18 08:22 01/16/18 08:23 Temperature 98.3 F Pulse Rate 108 H 109 H Respiratory Rate 18 16 Blood Pressure 110/67 Pulse Oximetry 97 98 01/16/18 12:00 01/16/18 16:00 01/16/18 19:00 Temperature 100.5 F H 98.3 F Pulse Rate 109 H 109 H Respiratory Rate 20 20 Blood Pressure 105/61 117/65 Pulse Oximetry 100 98 98 01/16/18 20:00 01/16/18 20:03 Temperature 98.8 F Pulse Rate 107 H 106 H Respiratory Rate 18 16 Blood Pressure 124/59 L Pulse Oximetry 98 100 Intake & Output 01/16/18 01/16/18 01/17/18 06:59 18:59 06:59 Intake Total 1133 / 1133 Output Total 700 / 700 2801 / 2801 Balance -700 / -700 -1668 / -1668 Weight 79.6 kg Intake: IV 200 / 200 Diflucan 400 mg Premix Bag 200 200 / 200 ML @ 100 mls/hr IV.SIG Q24H [facility] Rx#:[id number] Oral 0 / 0 Tube Feeding 600 / 600 Tube Irrigant 150 / 150 Water Bolus Amount 60 / 60 Other 123 / 123 Output: Urine 700 / 700 700 / 700 Stool 400 / 400 Emesis 1 / 1 Urine Amount (Catheter) 1300 / 1300 Indwelling Urethral Catheter 1300 / 1300 Chest Tube Drainage 400 / 400 Left 250 / 250 Right Mid-Axillary Chest 150 / 150 Other: # Voids 4 # Incontinent Voids 0 Date of Last Bowel Movement 01/16/18 01/16/18 # Bowel Movements 1 # Incontinent Bowel Movements 1 01/16/18 13:15 Blood - Peripheral Aerobic Blood Culture - Pending 01/16/18 13:15 Blood - Peripheral Anaerobic Blood Culture - Pending 01/16/18 13:05 Blood - Peripheral Aerobic Blood Culture - Pending 01/16/18 13:05 Blood - Peripheral Anaerobic Blood Culture - Pending 01/11/18 06:55 Blood - Peripheral Aerobic Blood Culture - Final Xenia tropicalis 01/11/18 06:55 Blood - Peripheral Anaerobic Blood Culture - Final No growth in 5 days 01/11/18 07:00 Blood - Peripheral Aerobic Blood Culture - Final No growth in 5 days 01/11/18 07:00 Blood - Peripheral Anaerobic Blood Culture - Final No growth in 5 days 01/09/18 12:25 Blood - Peripheral Aerobic Blood Culture - Final No growth in 5 days 01/09/18 12:25 Blood - Peripheral Anaerobic Blood Culture - Final No growth in 5 days 01/09/18 12:15 Blood - Peripheral Aerobic Blood Culture - Final Xenia tropicalis 01/09/18 12:15 Blood - Peripheral Anaerobic Blood Culture - Final No growth in 5 days Lab - Hematology Results 01/16/18 13:15 WBC 12.5 H RBC 3.10 L Hgb 8.5 L Hct 28.1 L MCV 90.7 MCH 27.5 MCHC 30.4 L RDW 19.7 H Plt Count 450 MPV 8.8 Neut % (Auto) 51.4 Lymph % (Auto) 37.6 [place] % (Auto) 8.2 H Eos % (Auto) 2.4 Baso % (Auto) 0.4 Neut # (Auto) 6.4 Lymph # (Auto) 4.7 [place] # (Auto) 1.0 H Eos # (Auto) 0.3 Baso # (Auto) 0.1 WBC Differential . Differential Comment Auto diff final Lab - Chemistry Results 01/15/18 01/15/18 01/15/18 00:23 06:09 07:22 Sodium 151 H Potassium 5.9 H Chloride 118 H Carbon Dioxide 24.4 Anion Gap 9 BUN 58 H Creatinine 1.62 H Estimated GFR 41 L POC Glucose 230 H 217 H Random Glucose 177 H Calcium 8.2 L 01/15/18 01/15/18 01/15/18 07:49 13:11 19:31 Sodium 148 H Potassium 5.4 H Chloride 118 H Carbon Dioxide 23.5 Anion Gap 7 BUN 59 H Creatinine 1.67 H Estimated GFR 40 L POC Glucose 218 H 211 H Random Glucose 195 H Calcium 8.1 L 01/15/18 01/16/18 01/16/18 23:17 05:53 07:20 Sodium Potassium Chloride Carbon Dioxide Anion Gap BUN Creatinine Estimated GFR POC Glucose 245 H 260 H 251 H Random Glucose Calcium 01/16/18 01/16/18 11:38 13:15 Sodium 150 H Potassium 5.5 H Chloride 118 H Carbon Dioxide 26.1 Anion Gap 6 BUN 60 H Creatinine 1.73 H Estimated GFR 38 L POC Glucose 203 H Random Glucose 176 H Calcium 8.2 L Imaging: ITS Impressions Head MRI 01/02/18 00:00 CONCLUSION: 1. 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 2. Cerebral atrophy and chronic ischemic small vessel vasculopathy. Chest CT 01/03/18 00:00 CONCLUSION: 1. Large bilateral pleural effusions occupying more than half of the right and left hemithorax. Abdomen/Pelvis CT 01/13/18 00:00 CONCLUSION: 1. Small bilateral pleural effusions and basilar infiltrates with bilateral chest tubes in place. 2. No evidence of ascites or bowel dilatation. Chest X-Ray 01/13/18 00:00 CONCLUSION: Decrease opacity in the lung bases following chest tube placement indicative of pleural fluid evacuation. No evidence of pneumothorax. Bilateral diffuse patchy airspace disease Abdomen/Bladder Ultrasound 01/15/18 00:00 CONCLUSION: 1. Negative renal sonogram. Physical Exam: GENERAL: Patient is 77 yo on Tpiece SKIN: Warm and dry. No rash HEAD: Normocephalic. EYES: No scleral icterus. No injection or drainage. NECK: Supple, trachea midline. + trach in place with large amount of drainage CARDIOVASCULAR: RRR. No murmurs, rubs, gallops RESPIRATORY: Breath sounds equal bilaterally. No accessory muscle use. b/l CT in place with serous drainage GASTROINTESTINAL: Abdomen soft, non-tender, nondistended. +PEG tube in place MUSCULOSKELETAL: No cyanosis, or edema. GUl; garcia in place with yellow urine Neuro: Obtundeed, eyes closed, not follows Assessment and Plan - Plan Sacral decub with possible underlying infection, osteomyelitis. Prior h/o ESBL E.coli on 10/24/2017. Possible HCAP GNR UTI ? ESBL given h/o ESBL. 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 Encephalopathy: strokes in hospital, optic neuritis on presentation. New issue: fungemia, C. tropicalis - persistent fungemia Persistent fever Recs: cont Fluconazol repeat BC Once documented blood sterility will cont fluconazole at least 2 weeks MOnitoring parameters: CBC CMP transition to oral form when ready for dc fu repeat blood clx CXR UA, C+S start broad spectrum abx paola guevara family @ b/s
[2018-01-16] MEDS ORDERED: Vancomycin Consult Pharmacy 1 EACH OTHER SCH (23:45)
[2018-01-17] MEDS: Insulin NovoLIN Regular Correctional Sugar Inj SQ SCH ×4 (00:45→18:15)
[2018-01-17 00:57] LABS: Bacteria,Urine Moderate /hpf; Bilirubin,Urine Negative (Negative); Clarity,Urine Cloudy (Clear); Color,Urine Yellow (Yellw/Straw); Glucose,Urine (UA) Negative (Negative); Leukocyte Esterase,Urine Large (Negative); Mucus,Urine Few /lpf (Occasional); Nitrite,Urine Negative (Negative); Renal Epithelial Cells,Urine 1 /hpf; Specific Gravity,Urine 1.015 (1.002-1.035); Transitional Epi Cells,Urine <1 /hpf
[2018-01-17] MEDS ORDERED: Vancomycin Inj 1,500 MG in Sodium Chlor 0.9% Inj 500 ML IV.SIG ONE (03:00)
[2018-01-17] MEDS: Sodium Chloride 0.45 % Inj 1,000 ML IV.CONT SCH ×4 (06:15→23:38)
--- NOTE | 2018-01-17 06:40 | XR ---
EXAM DATE: 01/17/2018 5:53 AM EDT AGE/SEX: 77 years / Male INDICATIONS: Cough, short of breath CLINICAL DATA: This is the patient's subsequent encounter. Patient reports that signs and symptoms h ave been present for 4 - 6 months and indicates a pain score of Nonresponsive. MEDICAL/SURGICAL HISTORY: Diabetes mellitus type II. Hypertension. Cardiovascular disease. Co ronary artery stent. tracheostomy bilateral chest tube [place] [facility] [place]. . FINDINGS: Small bore cochlear thoracostomy tubes are seen in both lung bases. There may be an increasing right- sided effusion, however. Patchy bilateral airspace disease persists. Heart size is normal. Tracheosto my tube may have been pulled back slightly. CONCLUSION: 1. Tracheostomy tube may have been called back slightly. Suggest residual inspection 2. Bilateral cochlear thoracostomy tubes are stable in position. There may be slight increase in the right-sided pleural effusion, however. 3. Patchy bilateral airspace disease persists. Electronically signed by: Randall Knowles MD 01/17/2018 6:38 AM EDT
[2018-01-17 08:17] LABS: Baso # (Auto) 0.1 th/mm3 (0.0-0.2); Baso % (Auto) 0.6 % (0.0-2.0); Eos # (Auto) 0.3 th/mm3 (0.0-0.4); Eos % (Auto) 2.2 % (0.0-4.0); Hematocrit 26.6 % (39.0-51.0); Hemoglobin 8.2 gm/dL (13.0-17.0); Lymph # (Auto) 4.6 th/mm3 (1.0-4.8); Lymph % (Auto) 35.2 % (9.0-44.0); Mean Corpuscular Hemoglobin 28.1 pg (27.0-34.0); Mono # (Auto) 0.9 th/mm3 (0.0-0.9); Mono % (Auto) 6.9 % (0.0-8.0); Neut # (Auto) 7.1 th/mm3 (1.8-7.7); Neut % (Auto) 55.1 % (16.0-70.0); Platelet Count 424 th/mm3 (150-450); Red Blood Count 2.93 mil/mm3 (4.50-5.90); Red Cell Distribution Width 19.7 % (11.6-17.2)
[2018-01-17 08:21] LABS: Mean Corpuscular HGB Conc 30.9 % (32.0-36.0)
[2018-01-17 08:24] LABS: Activated Partial Thrombo Time 36.1 sec (24.3-30.1); INR 2.3 Ratio
[2018-01-17 08:42] LABS: Calcium 7.8 mg/dL (8.5-10.1); Carbon Dioxide 25.5 meq/L (21.0-32.0); Potassium 5.3 meq/L (3.5-5.1)
[2018-01-17] MEDS: Famotidine 20 MG Tablet PO SCH ×2 (09:02→22:08)
[2018-01-17] MEDS: Methylphenidate HCl 5 MG Tablet PO SCH ×2 (09:02→14:15)
[2018-01-17] MEDS: Polyethylene Glycol 3350 17 GM Packet PO SCH (09:02)
[2018-01-17] MEDS: Insulin Detemir Inj 1,000 UNIT/10 ML Vial SQ SCH ×3 (09:03→22:58)
[2018-01-17] MEDS: Hydrocortisone Acetate 25 MG Supp RECTAL SCH ×3 (09:03→22:18)
[2018-01-17] MEDS: Collagenase Oint 30 GM Tube TOPICAL SCH (09:03)
--- NOTE | 2018-01-17 09:57 | P.PNIM ---
Subjective Interval history: T-max 99.9, no change in mental status. No seizures overnight. Physical Exam Vital signs: Vital Signs 01/16/18 12:00 01/16/18 16:00 01/16/18 19:00 Temperature 100.5 F H 98.3 F Pulse Rate 109 H 109 H Respiratory Rate 20 20 Blood Pressure 105/61 117/65 Pulse Oximetry 100 98 98 01/16/18 20:00 01/16/18 20:03 01/17/18 00:00 Temperature 98.8 F 99.4 F Pulse Rate 106 H 106 H 103 H Respiratory Rate 18 16 18 Blood Pressure 124/59 L 126/58 L Pulse Oximetry 98 100 98 01/17/18 00:02 01/17/18 04:00 01/17/18 04:37 Temperature 99.6 F Pulse Rate 105 H 110 H Respiratory Rate 18 Blood Pressure 137/59 L Pulse Oximetry 97 98 01/17/18 08:00 Temperature 99.9 F H Pulse Rate 110 H Respiratory Rate 20 Blood Pressure 106/60 Pulse Oximetry 98 Intake & Output 01/16/18 01/17/18 01/17/18 18:59 06:59 18:59 Intake Total 1133 / 1133 1300 / 1300 Output Total 2801 / 2801 750 / 750 Balance -1668 / -1668 550 / 550 Weight 77.8 kg Intake: IV 200 / 200 1300 / 1300 1/2 Normal Saline Inj 1,000 ML 1000 / 1000 @ 100 mls/hr IV.CONT .Q10H EDE Rx#:[id number] Diflucan 400 mg Premix Bag 200 200 / 200 200 / 200 ML @ 100 mls/hr IV.SIG Q24H EDE Rx#:[id number] Merrem Inj 500 MG In NS Inj 100 100 / 100 ML @ 200 mls/hr IV.SIG Q8H EDE Rx#:[id number] Oral 0 / 0 Tube Feeding 600 / 600 Tube Irrigant 150 / 150 Water Bolus Amount 60 / 60 Other 123 / 123 Output: Urine 700 / 700 700 / 700 Stool 400 / 400 Emesis 1 / 1 Urine Amount (Catheter) 1300 / 1300 Indwelling Urethral Catheter 1300 / 1300 Chest Tube Drainage 400 / 400 50 / 50 Left 250 / 250 20 / 20 Right Mid-Axillary Chest 150 / 150 30 / 30 Other: # Voids 4 # Incontinent Voids 0 Date of Last Bowel Movement 01/16/18 01/16/18 # Bowel Movements 1 1 # Incontinent Bowel Movements 1 Narrative: GENERAL: Appears chronically ill. NECK: Trach in place. Trach site clean, no discharge. CARDIOVASCULAR: Tachycardic, regular rhythm without murmurs, gallops, or rubs. RESPIRATORY: Bronchial breath sounds. Poor effort. GASTROINTESTINAL: PEG tube in place, PEG site clean. Abdomen soft, non-tender, nondistended. Lizarraga catheter in place with yellow urine. MUSCULOSKELETAL: No cyanosis, mild edema. BACK: With decub ulcer. NEURO: Not awake, no eye opening, nonverbal, does not follow any commands. - Urinary Catheter Management Straight Cath placed during this visit: yes Urethral indwelling: Yes Reason for continuing: Severe pressure ulcer/wound Insertion date: 01/09/18 Insertion time: 08:00 Indwelling Urethral Catheter Cath placed during this visit: yes Reason for continuing: Acute urinary retention Insertion date: 01/11/18 Insertion time: 16:18 Results - Labs CBC & Chem 7: 01/17/18 07:51 01/17/18 07:51 Laboratory Results - last 24 hr 01/16/18 01/16/18 01/16/18 11:38 13:15 13:15 WBC 12.5 H RBC 3.10 L Hgb 8.5 L Hct 28.1 L MCV 90.7 MCH 27.5 MCHC 30.4 L RDW 19.7 H Plt Count 450 MPV 8.8 Neut % (Auto) 51.4 Lymph % (Auto) 37.6 [place] % (Auto) 8.2 H Eos % (Auto) 2.4 Baso % (Auto) 0.4 Neut # (Auto) 6.4 Lymph # (Auto) 4.7 [place] # (Auto) 1.0 H Eos # (Auto) 0.3 Baso # (Auto) 0.1 WBC Differential . Differential Comment Auto diff final PT INR APTT Sodium 150 H Potassium 5.5 H Chloride 118 H Carbon Dioxide 26.1 Anion Gap 6 BUN 60 H Creatinine 1.73 H Estimated GFR 38 L POC Glucose 203 H Random Glucose 176 H Calcium 8.2 L Urine Color Urine Clarity Urine pH Ur Specific [place] Urine Protein Urine Glucose (UA) Urine Ketones Urine Occult Blood Urine Nitrate Urine Bilirubin Urine Urobilinogen Ur Leukocyte Esterase Urine RBC Urine WBC Urine WBC Clumps Ur Transition Epith Cell Ur Renal Epithelial Cell Urine Bacteria Urine Mucus Micro UA Comment Urine Culture Comments 01/16/18 01/17/18 01/17/18 21:24 00:13 00:23 WBC RBC Hgb Hct MCV MCH MCHC RDW Plt Count MPV Neut % (Auto) Lymph % (Auto) [place] % (Auto) Eos % (Auto) Baso % (Auto) Neut # (Auto) Lymph # (Auto) [place] # (Auto) Eos # (Auto) Baso # (Auto) WBC Differential Differential Comment PT INR APTT Sodium Potassium Chloride Carbon Dioxide Anion Gap BUN Creatinine Estimated GFR POC Glucose 202 H 201 H Random Glucose Calcium Urine Color Yellow Urine Clarity Cloudy H Urine pH 8.0 Ur Specific [place] 1.015 Urine Protein 100 H Urine Glucose (UA) Negative Urine Ketones Negative Urine Occult Blood Small H Urine Nitrate Negative Urine Bilirubin Negative Urine Urobilinogen Less than 2 Ur Leukocyte Esterase Large H Urine RBC 14 H Urine WBC Urine WBC Clumps Many H Ur Transition Epith Cell <1 Ur Renal Epithelial Cell 1 Urine Bacteria Moderate H Urine Mucus Few H Micro UA Comment Cath-culture ind Urine Culture Comments Cath-cult indicated 01/17/18 01/17/18 01/17/18 06:00 07:51 07:51 WBC 13.0 H RBC 2.93 L Hgb 8.2 L Hct 26.6 L MCV 91.0 MCH 28.1 MCHC 30.9 L RDW 19.7 H Plt Count 424 MPV 9.0 Neut % (Auto) 55.1 Lymph % (Auto) 35.2 [place] % (Auto) 6.9 Eos % (Auto) 2.2 Baso % (Auto) 0.6 Neut # (Auto) 7.1 Lymph # (Auto) 4.6 [place] # (Auto) 0.9 Eos # (Auto) 0.3 Baso # (Auto) 0.1 WBC Differential . Differential Comment Auto diff final PT 23.0 H INR 2.3 APTT 36.1 H Sodium Potassium Chloride Carbon Dioxide Anion Gap BUN Creatinine Estimated GFR POC Glucose 242 H Random Glucose Calcium Urine Color Urine Clarity Urine pH Ur Specific [place] Urine Protein Urine Glucose (UA) Urine Ketones Urine Occult Blood Urine Nitrate Urine Bilirubin Urine Urobilinogen Ur Leukocyte Esterase Urine RBC Urine WBC Urine WBC Clumps Ur Transition Epith Cell Ur Renal Epithelial Cell Urine Bacteria Urine Mucus Micro UA Comment Urine Culture Comments 01/17/18 01/17/18 07:51 09:05 WBC RBC Hgb Hct MCV MCH MCHC RDW Plt Count MPV Neut % (Auto) Lymph % (Auto) [place] % (Auto) Eos % (Auto) Baso % (Auto) Neut # (Auto) Lymph # (Auto) [place] # (Auto) Eos # (Auto) Baso # (Auto) WBC Differential Differential Comment PT INR APTT Sodium 151 H Potassium 5.3 H Chloride 121 H Carbon Dioxide 25.5 Anion Gap 5 BUN 60 H Creatinine 1.73 H Estimated GFR 38 L POC Glucose 242 H Random Glucose 211 H Calcium 7.8 L Urine Color Urine Clarity Urine pH Ur Specific [place] Urine Protein Urine Glucose (UA) Urine Ketones Urine Occult Blood Urine Nitrate Urine Bilirubin Urine Urobilinogen Ur Leukocyte Esterase Urine RBC Urine WBC Urine WBC Clumps Ur Transition Epith Cell Ur Renal Epithelial Cell Urine Bacteria Urine Mucus Micro UA Comment Urine Culture Comments Microbiology 01/11/18 06:55 Blood - Peripheral Aerobic Blood Culture - Final Xenia tropicalis 01/11/18 06:55 Blood - Peripheral Anaerobic Blood Culture - Final No growth in 5 days 01/11/18 07:00 Blood - Peripheral Aerobic Blood Culture - Final No growth in 5 days 01/11/18 07:00 Blood - Peripheral Anaerobic Blood Culture - Final No growth in 5 days - Imaging Impressions Chest X-Ray 01/17/18 06:00 CONCLUSION: 1. Tracheostomy tube may have been called back slightly. Suggest residual inspection 2. Bilateral cochlear thoracostomy tubes are stable in position. There may be slight increase in the right-sided pleural effusion, however. 3. Patchy bilateral airspace disease persists. Assessment and Plan - Assessment (1) Encephalopathy Code(s): G93.40 - Encephalopathy, unspecified Status: Acute (2) CVA (cerebral vascular accident) Code(s): I63.9 - Cerebral infarction, unspecified Status: Acute (3) Wound of sacral region Code(s): S31.000A - Unspecified open wound of lower back and pelvis without penetration into retroperitoneum, initial encounter Status: Acute (4) NSTEMI (non-ST elevated myocardial infarction) Code(s): I21.4 - Non-ST elevation (NSTEMI) myocardial infarction Status: Resolved (5) Anemia Code(s): D64.9 - Anemia, unspecified Status: Acute (6) Respiratory failure with hypoxia and hypercapnia Code(s): J96.91 - Respiratory failure, unspecified with hypoxia; J96.92 - Respiratory failure, unspecified with hypercapnia Status: Resolved (7) Optic neuritis Code(s): H46.9 - Unspecified optic neuritis Status: Resolved - Plan This is a 77-year-old male who initially presented with vision changes with concern for optic neuritis versus temporal arteritis. Hospital course complicated by NSTEMI, E. coli urinary tract infection, rectal bleeding with acute anemia. He became lethargic, admitted to the intensive care unit and found to have CVA. CTA head and neck revealed atherosclerotic disease. After giving TPA, the patient had tonic-clonic seizure and became obtunded with acute hypoxic and hypercarbic respiratory failure, intubated. Patient was then transferred to the hospitalist service when patient was more stable. CVA,Optic neuritis with encephalopathy, and seizures. 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 Repeat MRI unchanged. Patient also had seizures, EEG showed diffuse encephalopathy. -Continue Coumadin, statin, Ritalin. After discussion patient's daughter, she would like to try to get the patient off Keppra and hopefully will improve his mental status. She is aware that there is risk for seizures. Follow while off Keppra. Neuropsychology following. Was on steroids for optic neuritis. Encephalopathy persists, no change in mental status, family continues to be aggressive. Recurrent UTI-prior history of ESBL E. coli, Sacral decub with possible underlying infection, osteomyelitis. Fungemia - Sacral decub has eschar with possible underlying osteomyelitis. Patient family refused surgical sacral debridement after seen by plastic surgery. Wound care and Dr. Upton following. 12/31 Wound cx: ESBL E.coli -Lizarraga catheter changed 01/09/2018, Urine culture on 01/09 grew Pseudomonas pansensitive, -Status post ciprofloxacin and imipenem. Echocardiogram on 01/12, no vegetation. Ophthalmology has seen the patient, no fungal keratitis or fungal eye infection. - Repeat blood cultures still growing Xenia tropicalis, switched back to fluconazole per infectious disease. Still having fever, rechecked blood culture , repeat urinalysis still shows large leukocyte esterase and pyuria, leukocytosis increasing, persistence of bilateral airspace disease, CTT still in position with increased right-sided pleural effusion. Discussed with infectious disease. Started on meropenem, and vancomycin. Continue Diflucan, once documented blood sterility, will continue fluconazole for at least 2 weeks whether oral or IV. Follow-up repeat blood culture. Acute on chronic respiratory failure status post tracheostomy Bilateral Pleural effusion, with healthcare associated pneumonia - Pigtail catheters in place, pleural fluid cultures negative consistent with transudative effusion. Status post imipenem and ciprofloxacin.Continue bronchodilators, pulmonary toilet. On tracheostomy, pulmonary following. Repeat chest x-ray as above. Acute renal failure on top of chronic kidney disease-creatinine is increasing, from normal, up to 1.73, repeat urinalysis showed proteinuria, continue normal saline, creatinine still elevated. Kidney ultrasound unremarkable. Status post Lasix. Consult nephrology,, recheck BMP. DM type 2 - A1C 9.6, BGs still high, Levemir increased to 12 units twice a day on 01/17/2018, increase further if BG's are still high., cont sliding scale insulin and Glucerna. CHRONIC RESOLVED ISSUES: Scrotal Edema/ulcerations - seen by Urology: continue with clean intermittent catheter as needed, scrotal elevation NSTEMI Echo 10/19: LV systolic function is moderately reduced, EF 40-45%. continue Coreg and statin. Anemia secondary to GI bleed- Status post EGD colonoscopy. GI has signed off, patient with healed rectal ulcers and hemorrhoids. Continue Pepcid. FEN Hypernatremia-continue free water, cont IVF. Hyperkalemia- s/p Kayexalate and a small dose of lasix, awaiting BMP. Continue tube feeds-Glucerna 1.5 with goal rate 60ml/hr GI prophylaxis- on Pepcid DVT prophylaxis-on coumadin (5) Anemia Qualifiers: Anemia type: unspecified type Qualified Code(s): D64.9 - Anemia, unspecified
[2018-01-17] MEDS: Acetaminophen 325 MG Tablet PO PRN ×2 (11:44→17:53)
--- NOTE | 2018-01-17 16:39 | P.PNID ---
Subjective Remarks: spiking fever again up to 101 ax UA with pyuria BC from yday NGTD urine clx P BL CTs are draining 180/270 cc Antibiotics: diflucan zosyn vanco Lines: periferal Lines ok Past Medical History: reviewed Allergies/Adverse Reactions: Allergies No Known Allergies Allergy (Verified 12/25/17 11:22) Objective Vital Signs 01/16/18 19:00 01/16/18 20:00 01/16/18 20:03 Temperature 98.8 F Pulse Rate 106 H 106 H Respiratory Rate 18 16 Blood Pressure 124/59 L Pulse Oximetry 98 98 100 01/17/18 00:00 01/17/18 00:02 01/17/18 04:00 Temperature 99.4 F 99.6 F Pulse Rate 103 H 105 H 110 H Respiratory Rate 18 18 Blood Pressure 126/58 L 137/59 L Pulse Oximetry 98 97 01/17/18 04:37 01/17/18 08:00 01/17/18 09:53 Temperature 99.9 F H Pulse Rate 110 H Respiratory Rate 20 Blood Pressure 106/60 Pulse Oximetry 98 98 98 01/17/18 10:25 01/17/18 12:00 01/17/18 14:30 Temperature 101.0 F H Pulse Rate 107 H 114 H 114 H Respiratory Rate 20 Blood Pressure 105/59 L Pulse Oximetry 97 Intake & Output 01/16/18 01/17/18 01/17/18 18:59 06:59 18:59 Intake Total 1133 / 1133 1300 / 1300 100 / 100 Output Total 2801 / 2801 750 / 750 Balance -1668 / -1668 550 / 550 100 / 100 Weight 77.8 kg Intake: IV 200 / 200 1300 / 1300 100 / 100 1/2 Normal Saline Inj 1,000 ML 1000 / 1000 @ 100 mls/hr IV.CONT .Q10H EDE Rx#:[id number] Diflucan 400 mg Premix Bag 200 200 / 200 200 / 200 ML @ 100 mls/hr IV.SIG Q24H EDE Rx#:[id number] Merrem Inj 500 MG In NS Inj 100 100 / 100 100 / 100 ML @ 200 mls/hr IV.SIG Q8H EDE Rx#:[id number] Oral 0 / 0 Tube Feeding 600 / 600 Tube Irrigant 150 / 150 Water Bolus Amount 60 / 60 Other 123 / 123 Output: Urine 700 / 700 700 / 700 Stool 400 / 400 Emesis / Urine Amount (Catheter) 1300 / 1300 Indwelling Urethral Catheter 1300 / 1300 Chest Tube Drainage 400 / 400 50 / 50 Left 250 / 250 20 / 20 Right Mid-Axillary Chest 150 / 150 30 / 30 Other: # Voids 4 # Incontinent Voids 0 Date of Last Bowel Movement 01/16/18 01/16/18 # Bowel Movements 1 1 # Incontinent Bowel Movements 1 01/03/18 17:00 Fluid - Pleural fluid Fungal Smear - Final No fungal elements seen 01/03/18 17:00 Fluid - Pleural fluid Fungal Culture - Preliminary No growth in 2 weeks 01/03/18 17:00 Fluid - Pleural fluid Acid Fast Bacilli Smear - Final No acid fast bacilli seen 01/03/18 17:00 Fluid - Pleural fluid Mycobacterial Culture - Preliminary No growth in 2 weeks 01/16/18 13:15 Blood - Peripheral Aerobic Blood Culture - Preliminary No growth in 1 day 01/16/18 13:15 Blood - Peripheral Anaerobic Blood Culture - Preliminary No growth in 1 day 01/16/18 13:05 Blood - Peripheral Aerobic Blood Culture - Preliminary No growth in 1 day 01/16/18 13:05 Blood - Peripheral Anaerobic Blood Culture - Preliminary No growth in 1 day 01/17/18 00:23 Catheterized Urine Urine Culture - Pending 01/11/18 06:55 Blood - Peripheral Aerobic Blood Culture - Final Xenia tropicalis 01/11/18 06:55 Blood - Peripheral Anaerobic Blood Culture - Final No growth in 5 days 01/11/18 07:00 Blood - Peripheral Aerobic Blood Culture - Final No growth in 5 days 01/11/18 07:00 Blood - Peripheral Anaerobic Blood Culture - Final No growth in 5 days Lab - Hematology Results 01/16/18 01/17/18 13:15 07:51 WBC 12.5 H 13.0 H RBC 3.10 L 2.93 L Hgb 8.5 L 8.2 L Hct 28.1 L 26.6 L MCV 90.7 91.0 MCH 27.5 28.1 MCHC 30.4 L 30.9 L RDW 19.7 H 19.7 H Plt Count 450 424 MPV 8.8 9.0 Neut % (Auto) 51.4 55.1 Lymph % (Auto) 37.6 35.2 [place] % (Auto) 8.2 H 6.9 Eos % (Auto) 2.4 2.2 Baso % (Auto) 0.4 0.6 Neut # (Auto) 6.4 7.1 Lymph # (Auto) 4.7 4.6 [place] # (Auto) 1.0 H 0.9 Eos # (Auto) 0.3 0.3 Baso # (Auto) 0.1 0.1 WBC Differential . . Differential Comment Auto diff final Auto diff final Lab - Chemistry Results 01/15/18 01/15/18 01/16/18 19:31 23:17 05:53 Sodium 148 H Potassium 5.4 H Chloride 118 H Carbon Dioxide 23.5 Anion Gap 7 BUN 59 H Creatinine 1.67 H Estimated GFR 40 L POC Glucose 245 H 260 H Random Glucose 195 H Calcium 8.1 L 01/16/18 01/16/18 01/16/18 07:20 11:38 13:15 Sodium 150 H Potassium 5.5 H Chloride 118 H Carbon Dioxide 26.1 Anion Gap 6 BUN 60 H Creatinine 1.73 H Estimated GFR 38 L POC Glucose 251 H 203 H Random Glucose 176 H Calcium 8.2 L 01/16/18 01/17/18 01/17/18 21:24 00:13 06:00 Sodium Potassium Chloride Carbon Dioxide Anion Gap BUN Creatinine Estimated GFR POC Glucose 202 H 201 H 242 H Random Glucose Calcium 01/17/18 01/17/18 01/17/18 07:51 09:05 12:33 Sodium 151 H Potassium 5.3 H Chloride 121 H Carbon Dioxide 25.5 Anion Gap 5 BUN 60 H Creatinine 1.73 H Estimated GFR 38 L POC Glucose 242 H 234 H Random Glucose 211 H Calcium 7.8 L Imaging: ITS Impressions Head MRI 01/02/18 00:00 CONCLUSION: 1. 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 2. Cerebral atrophy and chronic ischemic small vessel vasculopathy. Chest CT 01/03/18 00:00 CONCLUSION: 1. Large bilateral pleural effusions occupying more than half of the right and left hemithorax. Abdomen/Pelvis CT 01/13/18 00:00 CONCLUSION: 1. Small bilateral pleural effusions and basilar infiltrates with bilateral chest tubes in place. 2. No evidence of ascites or bowel dilatation. Abdomen/Bladder Ultrasound 01/15/18 00:00 CONCLUSION: 1. Negative renal sonogram. Chest X-Ray 01/17/18 06:00 CONCLUSION: 1. Tracheostomy tube may have been called back slightly. Suggest residual inspection 2. Bilateral cochlear thoracostomy tubes are stable in position. There may be slight increase in the right-sided pleural effusion, however. 3. Patchy bilateral airspace disease persists. Physical Exam: GENERAL: Patient is 77 yo on Tpiece SKIN: Warm and dry. No rash HEAD: Normocephalic. EYES: No scleral icterus. No injection or drainage. NECK: Supple, trachea midline. + trach in place with large amount of drainage CARDIOVASCULAR: RRR. No murmurs, rubs, gallops RESPIRATORY: Breath sounds equal bilaterally. No accessory muscle use. b/l CT in place with serous drainage GASTROINTESTINAL: Abdomen soft, non-tender, nondistended. +PEG tube in place MUSCULOSKELETAL: No cyanosis, or edema. GUl; garcia in place with yellow urine Neuro: Obtundeed, eyes closed, not follows Assessment and Plan - Plan Sacral decub with possible underlying infection, osteomyelitis. Prior h/o ESBL E.coli on 10/24/2017. Possible HCAP GNR UTI ? ESBL given h/o ESBL. 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 Encephalopathy: strokes in hospital, optic neuritis on presentation. New issue: fungemia, C. tropicalis - persistent fungemia Persistent fever ? UTI Recs: cont Fluconazol repeat BC Once documented blood sterility will cont fluconazole at least 2 weeks MOnitoring parameters: CBC CMP transition to oral form when ready for dc fu repeat blood clx CXR cont broad spectrum abx will adjust abx per clx result dw family @ b/s
--- NOTE | 2018-01-17 19:33 | P.PNNP ---
Subjective Interval history: Called again to see the patient due to elevated BUN and Creatinine. Patient seen, remain on the vent. and unresponsive. Physical Exam Vital signs: Vital Signs 01/16/18 20:00 01/16/18 20:03 01/17/18 00:00 Temperature 98.8 F 99.4 F Pulse Rate 106 H 106 H 103 H Respiratory Rate 18 16 18 Blood Pressure 124/59 L 126/58 L Pulse Oximetry 98 100 98 01/17/18 00:02 01/17/18 04:00 01/17/18 04:37 Temperature 99.6 F Pulse Rate 105 H 110 H Respiratory Rate 18 Blood Pressure 137/59 L Pulse Oximetry 97 98 01/17/18 08:00 01/17/18 09:53 01/17/18 10:25 Temperature 99.9 F H Pulse Rate 110 H 107 H Respiratory Rate 20 Blood Pressure 106/60 Pulse Oximetry 98 98 01/17/18 12:00 01/17/18 14:30 01/17/18 16:00 Temperature 101.0 F H 101.5 F H Pulse Rate 114 H 114 H 111 H Respiratory Rate 20 22 Blood Pressure 105/59 L 96/55 L Pulse Oximetry 97 99 01/17/18 19:11 Temperature Pulse Rate 111 H Respiratory Rate 22 Blood Pressure Pulse Oximetry 100 Intake & Output 01/17/18 01/17/18 01/18/18 06:59 18:59 06:59 Intake Total 1300 / 1300 1100 / 1100 Output Total 750 / 750 921 / 921 Balance 550 / 550 179 / 179 Weight 77.8 kg Intake: IV 1300 / 1300 1100 / 1100 1/2 Normal Saline Inj 1,000 ML 1000 / 1000 1000 / 1000 @ 100 mls/hr IV.CONT .Q10H EDE Rx#:[id number] Diflucan 400 mg Premix Bag 200 200 / 200 ML @ 100 mls/hr IV.SIG Q24H EDE Rx#:[id number] Merrem Inj 500 MG In NS Inj 100 100 / 100 100 / 100 ML @ 200 mls/hr IV.SIG Q8H EDE Rx#:[id number] Output: Urine 700 / 700 800 / 800 Stool 1 / 1 Chest Tube Drainage 50 / 50 120 / 120 Left 20 / 20 60 / 60 Right Mid-Axillary Chest 30 / 30 60 / 60 Other: Date of Last Bowel Movement 01/16/18 # Bowel Movements 1 Narrative: GENERAL: Appears chronically ill. NECK: Trach in place. Trach site clean, no discharge. CARDIOVASCULAR: Tachycardic, regular rhythm without murmurs, gallops, or rubs. RESPIRATORY: Bronchial breath sounds. Poor effort. GASTROINTESTINAL: PEG tube in place, PEG site clean. Abdomen soft, non-tender, nondistended. Lizarraga catheter in place with yellow urine. MUSCULOSKELETAL: No cyanosis, mild edema. BACK: With decub ulcer. NEURO: Not awake, no eye opening, nonverbal, does not follow any commands. - Urinary Catheter Management Straight Cath placed during this visit: yes Urethral indwelling: Yes Reason for continuing: Severe pressure ulcer/wound Insertion date: 01/09/18 Insertion time: 08:00 Indwelling Urethral Catheter Cath placed during this visit: yes Reason for continuing: Acute urinary retention Insertion date: 01/11/18 Insertion time: 16:18 Assessment and Plan - Plan 1. Acute Kidney injury. 2. Respiratory failure. 3. Sepsis. 4. Anemia. 5. Encephalopathy. Patient has now again Acute kidney injury, Most likely due to ATN due to Hypotension and sepsis. Continue antibiotics. Creatinine is almost same. Sodium is elevated, started on 1/2 NS.
--- NOTE | 2018-01-17 20:03 | P.PN ---
Subjective Interval history: No change in Mentation. On a T Bar at 30 % FIO2 . Has skin ulcers on sacrum Physical Exam Vital signs: Vital Signs 01/16/18 20:03 01/17/18 00:00 01/17/18 00:02 Temperature 99.4 F Pulse Rate 106 H 103 H 105 H Respiratory Rate 16 18 Blood Pressure 126/58 L Pulse Oximetry 100 98 01/17/18 04:00 01/17/18 04:37 01/17/18 08:00 Temperature 99.6 F 99.9 F H Pulse Rate 110 H 110 H Respiratory Rate 18 20 Blood Pressure 137/59 L 106/60 Pulse Oximetry 97 98 98 01/17/18 09:53 01/17/18 10:25 01/17/18 12:00 Temperature 101.0 F H Pulse Rate 107 H 114 H Respiratory Rate 20 Blood Pressure 105/59 L Pulse Oximetry 98 97 01/17/18 14:30 01/17/18 16:00 01/17/18 19:11 Temperature 101.5 F H Pulse Rate 114 H 111 H 111 H Respiratory Rate 22 22 Blood Pressure 96/55 L Pulse Oximetry 99 100 Intake & Output 01/17/18 01/17/18 01/18/18 06:59 18:59 06:59 Intake Total 1300 / 1300 1100 / 1100 Output Total 750 / 750 921 / 921 Balance 550 / 550 179 / 179 Weight 77.8 kg Intake: IV 1300 / 1300 1100 / 1100 1/2 Normal Saline Inj 1,000 ML 1000 / 1000 1000 / 1000 @ 100 mls/hr IV.CONT .Q10H EDE Rx#:[id number] Diflucan 400 mg Premix Bag 200 200 / 200 ML @ 100 mls/hr IV.SIG Q24H EDE Rx#:[id number] Merrem Inj 500 MG In NS Inj 100 100 / 100 100 / 100 ML @ 200 mls/hr IV.SIG Q8H EDE Rx#:[id number] Output: Urine 700 / 700 800 / 800 Stool 1 / 1 Chest Tube Drainage 50 / 50 120 / 120 Left 20 / 20 60 / 60 Right Mid-Axillary Chest 30 / 30 60 / 60 Other: Date of Last Bowel Movement 01/16/18 # Bowel Movements 1 Narrative: GENERAL: Appears chronically ill. Has sacral ulcer. NECK: Trach in place. Trach site clean, no discharge. CARDIOVASCULAR: S1 S2 regular rhythm without murmurs, gallops, or rubs. RESPIRATORY: Bronchial breath sounds. Poor effort. GASTROINTESTINAL: PEG tube in place, PEG site clean. Abdomen soft, non-tender, nondistended. MUSCULOSKELETAL: No cyanosis, mild edema. BACK: With decub ulcer. NEURO: Not awake, no eye opening, nonverbal, does not follow any commands. - Urinary Catheter Management Straight Cath placed during this visit: yes Urethral indwelling: Yes Reason for continuing: Severe pressure ulcer/wound Insertion date: 01/09/18 Insertion time: 08:00 Indwelling Urethral Catheter Cath placed during this visit: yes Reason for continuing: Acute urinary retention Insertion date: 01/11/18 Insertion time: 16:18 Results - Labs CBC & Chem 7: 01/17/18 07:51 01/17/18 07:51 Laboratory Results - last 24 hr 01/16/18 01/17/18 01/17/18 21:24 00:13 00:23 WBC RBC Hgb Hct MCV MCH MCHC RDW Plt Count MPV Neut % (Auto) Lymph % (Auto) Mcmullen % (Auto) Eos % (Auto) Baso % (Auto) Neut # (Auto) Lymph # (Auto) Mcmullen # (Auto) Eos # (Auto) Baso # (Auto) WBC Differential Differential Comment PT INR APTT Sodium Potassium Chloride Carbon Dioxide Anion Gap BUN Creatinine Estimated GFR POC Glucose 202 H 201 H Random Glucose Calcium Urine Color Yellow Urine Clarity Cloudy H Urine pH 8.0 Ur Specific [place] 1.015 Urine Protein 100 H Urine Glucose (UA) Negative Urine Ketones Negative Urine Occult Blood Small H Urine Nitrate Negative Urine Bilirubin Negative Urine Urobilinogen Less than 2 Ur Leukocyte Esterase Large H Urine RBC 14 H Urine WBC Urine WBC Clumps Many H Ur Transition Epith Cell <1 Ur Renal Epithelial Cell 1 Urine Bacteria Moderate H Urine Mucus Few H Micro UA Comment Cath-culture ind Urine Culture Comments Cath-cult indicated 01/17/18 01/17/18 01/17/18 06:00 07:51 07:51 WBC 13.0 H RBC 2.93 L Hgb 8.2 L Hct 26.6 L MCV 91.0 MCH 28.1 MCHC 30.9 L RDW 19.7 H Plt Count 424 MPV 9.0 Neut % (Auto) 55.1 Lymph % (Auto) 35.2 Mcmullen % (Auto) 6.9 Eos % (Auto) 2.2 Baso % (Auto) 0.6 Neut # (Auto) 7.1 Lymph # (Auto) 4.6 Mcmullen # (Auto) 0.9 Eos # (Auto) 0.3 Baso # (Auto) 0.1 WBC Differential . Differential Comment Auto diff final PT 23.0 H INR 2.3 APTT 36.1 H Sodium Potassium Chloride Carbon Dioxide Anion Gap BUN Creatinine Estimated GFR POC Glucose 242 H Random Glucose Calcium Urine Color Urine Clarity Urine pH Ur Specific [place] Urine Protein Urine Glucose (UA) Urine Ketones Urine Occult Blood Urine Nitrate Urine Bilirubin Urine Urobilinogen Ur Leukocyte Esterase Urine RBC Urine WBC Urine WBC Clumps Ur Transition Epith Cell Ur Renal Epithelial Cell Urine Bacteria Urine Mucus Micro UA Comment Urine Culture Comments 01/17/18 01/17/18 01/17/18 07:51 09:05 12:33 WBC RBC Hgb Hct MCV MCH MCHC RDW Plt Count MPV Neut % (Auto) Lymph % (Auto) Mcmullen % (Auto) Eos % (Auto) Baso % (Auto) Neut # (Auto) Lymph # (Auto) Mcmullen # (Auto) Eos # (Auto) Baso # (Auto) WBC Differential Differential Comment PT INR APTT Sodium 151 H Potassium 5.3 H Chloride 121 H Carbon Dioxide 25.5 Anion Gap 5 BUN 60 H Creatinine 1.73 H Estimated GFR 38 L POC Glucose 242 H 234 H Random Glucose 211 H Calcium 7.8 L Urine Color Urine Clarity Urine pH Ur Specific [place] Urine Protein Urine Glucose (UA) Urine Ketones Urine Occult Blood Urine Nitrate Urine Bilirubin Urine Urobilinogen Ur Leukocyte Esterase Urine RBC Urine WBC Urine WBC Clumps Ur Transition Epith Cell Ur Renal Epithelial Cell Urine Bacteria Urine Mucus Micro UA Comment Urine Culture Comments 01/17/18 17:57 WBC RBC Hgb Hct MCV MCH MCHC RDW Plt Count MPV Neut % (Auto) Lymph % (Auto) Mcmullen % (Auto) Eos % (Auto) Baso % (Auto) Neut # (Auto) Lymph # (Auto) [place]mullen # (Auto) Eos # (Auto) Baso # (Auto) WBC Differential Differential Comment PT INR APTT Sodium Potassium Chloride Carbon Dioxide Anion Gap BUN Creatinine Estimated GFR POC Glucose 191 H Random Glucose Calcium Urine Color Urine Clarity Urine pH Ur Specific [place] Urine Protein Urine Glucose (UA) Urine Ketones Urine Occult Blood Urine Nitrate Urine Bilirubin Urine Urobilinogen Ur Leukocyte Esterase Urine RBC Urine WBC Urine WBC Clumps Ur Transition Epith Cell Ur Renal Epithelial Cell Urine Bacteria Urine Mucus Micro UA Comment Urine Culture Comments Microbiology 01/03/18 17:00 Fluid - Pleural fluid Fungal Smear - Final No fungal elements seen 01/03/18 17:00 Fluid - Pleural fluid Fungal Culture - Preliminary No growth in 2 weeks 01/03/18 17:00 Fluid - Pleural fluid Acid Fast Bacilli Smear - Final No acid fast bacilli seen 01/03/18 17:00 Fluid - Pleural fluid Mycobacterial Culture - Preliminary No growth in 2 weeks 01/16/18 13:15 Blood - Peripheral Aerobic Blood Culture - Preliminary No growth in 1 day 01/16/18 13:15 Blood - Peripheral Anaerobic Blood Culture - Preliminary No growth in 1 day 01/16/18 13:05 Blood - Peripheral Aerobic Blood Culture - Preliminary No growth in 1 day 01/16/18 13:05 Blood - Peripheral Anaerobic Blood Culture - Preliminary No growth in 1 day - Imaging Impressions Chest X-Ray 01/17/18 06:00 CONCLUSION: 1. Tracheostomy tube may have been called back slightly. Suggest residual inspection 2. Bilateral cochlear thoracostomy tubes are stable in position. There may be slight increase in the right-sided pleural effusion, however. 3. Patchy bilateral airspace disease persists. Assessment and Plan - Assessment (1) Wound of sacral region Code(s): S31.000A - Unspecified open wound of lower back and pelvis without penetration into retroperitoneum, initial encounter Status: Acute (2) CVA (cerebral vascular accident) Code(s): I63.9 - Cerebral infarction, unspecified Status: Acute (3) Encephalopathy Code(s): G93.40 - Encephalopathy, unspecified Status: Acute (4) NSTEMI (non-ST elevated myocardial infarction) Code(s): I21.4 - Non-ST elevation (NSTEMI) myocardial infarction Status: Resolved (5) Anemia Code(s): D64.9 - Anemia, unspecified Status: Acute (6) Respiratory failure with hypoxia and hypercapnia Code(s): J96.91 - Respiratory failure, unspecified with hypoxia; J96.92 - Respiratory failure, unspecified with hypercapnia Status: Resolved (7) Optic neuritis Code(s): H46.9 - Unspecified optic neuritis Status: Resolved (8) Major neurocognitive disorder due to vascular disease, without behavioral disturbance, severe Code(s): F01.50 - Vascular dementia without behavioral disturbance Status: Acute (9) Status post tracheostomy Code(s): Z93.0 - Tracheostomy status Status: Acute (10) Status post tracheostomy Code(s): Z93.0 - Tracheostomy status Status: Acute - Plan 1. T bar at 28 %.Keep sat >90 2. Cont antibiotics per ID/ Fungal sepsis 3. Nebs qid , Duoneb 4. Continue PT and trach suction and lavage 5. BMP CBC AM 6. Tube feeds at 60 CC (5) Anemia Qualifiers: Anemia type: unspecified type Qualified Code(s): D64.9 - Anemia, unspecified
[2018-01-18] MEDS: Insulin NovoLIN Regular Correctional Sugar Inj SQ SCH ×5 (00:25→23:58)
[2018-01-18] MEDS: Vancomycin Inj 1,000 MG in Sodium Chlor 0.9% Inj 250 ML IV.SIG SCH (03:29)
[2018-01-18] MEDS: Sodium Chloride 0.45 % Inj 1,000 ML IV.CONT SCH ×2 (06:46→18:08)
[2018-01-18 08:00] LABS: INR 2.3 Ratio; Prothrombin Time 22.9 sec (9.8-11.6)
[2018-01-18 08:18] LABS: Calcium 7.7 mg/dL (8.5-10.1); Carbon Dioxide 22.2 meq/L (21.0-32.0)
[2018-01-18 08:54] LABS: Potassium 5.3 meq/L (3.5-5.1)
[2018-01-18] MEDS: Hydrocortisone Acetate 25 MG Supp RECTAL SCH ×2 (10:00→22:24)
[2018-01-18] MEDS: Methylphenidate HCl 5 MG Tablet PO SCH ×2 (10:01→13:44)
[2018-01-18] MEDS: Famotidine 20 MG Tablet PO SCH ×2 (10:02→22:22)
[2018-01-18] MEDS: Insulin Detemir Inj 1,000 UNIT/10 ML Vial SQ SCH ×2 (10:02→22:22)
[2018-01-18] MEDS: Polyethylene Glycol 3350 17 GM Packet PO SCH (10:02)
[2018-01-18] MEDS: Collagenase Oint 30 GM Tube TOPICAL SCH (10:03)
--- NOTE | 2018-01-18 10:06 | P.PN ---
Subjective Interval history: afebrile - T down last 24 hours tolerating tube feeings at 60 cc/hr- no residuals no meaningful interactins spontaneousl eye opening, not ff commands + BM- soft, formed- once a day Physical Exam Vital signs: Vital Signs 01/17/18 10:25 01/17/18 12:00 01/17/18 14:30 Temperature 101.0 F H Pulse Rate 107 H 114 H 114 H Respiratory Rate 20 Blood Pressure 105/59 L Pulse Oximetry 97 01/17/18 16:00 01/17/18 19:11 01/17/18 20:00 Temperature 101.5 F H 97.8 F Pulse Rate 111 H 111 H 100 H Respiratory Rate 22 22 20 Blood Pressure 96/55 L 98/60 L Pulse Oximetry 99 100 97 01/18/18 00:00 01/18/18 03:37 01/18/18 03:56 Temperature 97.1 F L 98.0 F Pulse Rate 105 H 98 H 109 H Respiratory Rate 20 18 Blood Pressure 98/60 L 90/60 L Pulse Oximetry 97 96 01/18/18 09:00 Temperature 97.8 F Pulse Rate 118 H Respiratory Rate 22 Blood Pressure 111/66 Pulse Oximetry 95 Intake & Output 01/17/18 01/18/18 01/18/18 18:59 06:59 18:59 Intake Total 1200 / 1200 2120 / 2120 Output Total 921 / 921 Balance 279 / 279 2120 / 2120 Weight 77.8 kg Intake: IV 1200 / 1200 1000 / 1000 1/2 Normal Saline Inj 1,000 ML 1000 / 1000 1000 / 1000 @ 100 mls/hr IV.CONT .Q10H EDE Rx#:[id number] Merrem Inj 500 MG In NS Inj 100 200 / 200 ML @ 200 mls/hr IV.SIG Q8H EDE Rx#:[id number] Tube Feeding 920 / 920 Tube Irrigant 200 / 200 Output: Urine 800 / 800 Stool 1 / 1 Chest Tube Drainage 120 / 120 Left 60 / 60 Right Mid-Axillary Chest 60 / 60 Other: Post Void Residual 300 # Voids 2 Narrative: afebrile encephalopathic, no meaningful interation HEAD: Normocephalic. EYES: No scleral icterus. No injection or drainage. NECK: Supple, trachea midline. No JVD or lymphadenopathy. + trach CARDIOVASCULAR: Regular rate and rhythm RESPIRATORY: Breath sounds equal bilaterally, diminished at bases. No accessory muscle use. Right pigtail chest tube in place Left pigtail catheter in place GASTROINTESTINAL: Abdomen soft, non-tender, nondistended. +PEG tube in place garcia in place Back- with sacral decubitus- eschar MUSCULOSKELETAL: No cyanosis, or edema. some superficail wounds Neuro: opens eyes to painful stimuli. - Urinary Catheter Management Straight Cath placed during this visit: yes Urethral indwelling: Yes Reason for continuing: Severe pressure ulcer/wound Insertion date: 01/09/18 Insertion time: 08:00 Indwelling Urethral Catheter Cath placed during this visit: yes Reason for continuing: Acute urinary retention Insertion date: 01/11/18 Insertion time: 16:18 Results - Labs CBC & Chem 7: 01/17/18 07:51 01/18/18 07:25 Laboratory Results - last 24 hr 01/17/18 01/17/18 01/17/18 12:33 17:57 22:48 PT INR Sodium Potassium Chloride Carbon Dioxide Anion Gap BUN Creatinine Estimated GFR POC Glucose 234 H 191 H 181 H Random Glucose Calcium 01/18/18 01/18/18 01/18/18 00:20 06:45 07:25 PT INR Sodium 149 H Potassium 5.3 H Chloride 117 H Carbon Dioxide 22.2 Anion Gap 10 BUN 53 H Creatinine 1.65 H Estimated GFR 41 L POC Glucose 188 H 236 H Random Glucose 216 H Calcium 7.7 L 01/18/18 07:25 PT 22.9 H INR 2.3 Sodium Potassium Chloride Carbon Dioxide Anion Gap BUN Creatinine Estimated GFR POC Glucose Random Glucose Calcium Microbiology 01/03/18 17:00 Fluid - Pleural fluid Fungal Smear - Final No fungal elements seen 01/03/18 17:00 Fluid - Pleural fluid Fungal Culture - Preliminary No growth in 2 weeks 01/03/18 17:00 Fluid - Pleural fluid Acid Fast Bacilli Smear - Final No acid fast bacilli seen 01/03/18 17:00 Fluid - Pleural fluid Mycobacterial Culture - Preliminary No growth in 2 weeks 01/16/18 13:15 Blood - Peripheral Aerobic Blood Culture - Preliminary No growth in 1 day 01/16/18 13:15 Blood - Peripheral Anaerobic Blood Culture - Preliminary No growth in 1 day 01/16/18 13:05 Blood - Peripheral Aerobic Blood Culture - Preliminary No growth in 1 day 01/16/18 13:05 Blood - Peripheral Anaerobic Blood Culture - Preliminary No growth in 1 day Assessment and Plan - Assessment (1) Encephalopathy Code(s): G93.40 - Encephalopathy, unspecified Status: Acute (2) CVA (cerebral vascular accident) Code(s): I63.9 - Cerebral infarction, unspecified Status: Acute (3) Wound of sacral region Code(s): S31.000A - Unspecified open wound of lower back and pelvis without penetration into retroperitoneum, initial encounter Status: Acute (4) NSTEMI (non-ST elevated myocardial infarction) Code(s): I21.4 - Non-ST elevation (NSTEMI) myocardial infarction Status: Resolved (5) Anemia Code(s): D64.9 - Anemia, unspecified Status: Acute (6) Respiratory failure with hypoxia and hypercapnia Code(s): J96.91 - Respiratory failure, unspecified with hypoxia; J96.92 - Respiratory failure, unspecified with hypercapnia Status: Resolved (7) Optic neuritis Code(s): H46.9 - Unspecified optic neuritis Status: Resolved - Plan This is a 77-year-old male who initially presented with vision changes with concern for optic neuritis versus temporal arteritis. Hospital course complicated by NSTEMI, E. coli urinary tract infection, rectal bleeding with acute anemia. He became lethargic, admitted to the intensive care unit and found to have CVA. CTA head and neck revealed atherosclerotic disease. After giving TPA, the patient had tonic-clonic seizure and became obtunded with acute hypoxic and hypercarbic respiratory failure, intubated. Patient was then transferred to the hospitalist service when patient was more stable. CVA,Optic neuritis with encephalopathy, and seizures. 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 Repeat MRI unchanged. Patient also had seizures, EEG showed diffuse encephalopathy. -Continue Coumadin, statin, Ritalin. After discussion patient's daughter, she would like to try to get the patient off Keppra and hopefully will improve his mental status. She is aware that there is risk for seizures. Follow while off Keppra. Neuropsychology following. Was on steroids for optic neuritis. Encephalopathy persists, no change in mental status, family continues to be aggressive in goals Recurrent UTI-prior history of ESBL E. coli- new culture - 01/17- growing gram negative Sacral decub with possible underlying infection, osteomyelitis. Fungemia - Sacral decub has eschar with possible underlying osteomyelitis. Patient family refused surgical sacral debridement after seen by plastic surgery. Wound care and Dr. Upton following. 12/31 Wound cx: ESBL E.coli -Garcia catheter changed 01/09/2018, Urine culture on 01/09 grew Pseudomonas pansensitive, -Status post ciprofloxacin and imipenem. Echocardiogram on 01/12, no vegetation. Ophthalmology has seen the patient, no fungal keratitis or fungal eye infection. - Repeat blood cultures still growing Xenia tropicalis, switched back to fluconazole per infectious disease. Still having fever, rechecked blood culture , repeat urinalysis still shows large leukocyte esterase and pyuria, leukocytosis increasing, persistence of bilateral airspace disease, CTT still in position with increased right-sided pleural effusion. - ID ff - Started on meropenem, and vancomycin. Continue Diflucan, once documented blood sterility, will continue fluconazole for at least 2 weeks whether oral or IV. Follow-up repeat blood culture. - FF up final urine cultures- 01/17- growing gram negative rods- final C and s still pending - Blood cultures from 01/16 negative so far Acute on chronic respiratory failure status post tracheostomy- currently on 28% T piece Bilateral Pleural effusion, with healthcare associated pneumonia - Pigtail catheters in place, pleural fluid cultures negative consistent with transudative effusion. Status post imipenem and ciprofloxacin.Continue bronchodilators, pulmonary toilet. pulmonary following. Repeat chest x-ray as above. - minimal secretions - tach care- d/w staff nurse Acute renal failure on top of chronic kidney disease HYpernatremia HYperkalemia -creatinine trending up- non oliguirc- ff UO and BMP - continue on 06/29 NS- Identity Management Consultant ff - Kidney ultrasound unremarkable. - continue free water - Nephrology ff - creatinine and Na trending down gradually - ff daily DM type 2 - A1C 9.6, BGs still high, - Levemir increased to 12 units twice a day on 01/17/2018, increase further if BG 's are still high., cont sliding scale insulin and Glucerna. CHRONIC RESOLVED ISSUES: Scrotal Edema/ulcerations - seen by Urology: continue with clean intermittent catheter as needed, scrotal elevation NSTEMI Echo 10/19: LV systolic function is moderately reduced, EF 40-45%. continue Coreg and statin. Anemia secondary to GI bleed- Status post EGD colonoscopy. GI has signed off, patient with healed rectal ulcers and hemorrhoids. Continue Pepcid. 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
[2018-01-18] MEDS: Acetaminophen 325 MG Tablet PO PRN (12:33)
--- NOTE | 2018-01-18 19:08 | P.PNNP ---
Subjective Interval history: Patient remain clinically same, unresponsive, on the vent. Physical Exam Vital signs: Vital Signs 01/17/18 19:11 01/17/18 20:00 01/18/18 00:00 Temperature 97.8 F 97.1 F L Pulse Rate 111 H 100 H 105 H Respiratory Rate 22 20 20 Blood Pressure 98/60 L 98/60 L Pulse Oximetry 100 97 97 01/18/18 03:37 01/18/18 03:56 01/18/18 09:00 Temperature 98.0 F 97.8 F Pulse Rate 98 H 109 H 118 H Respiratory Rate 18 22 Blood Pressure 90/60 L 111/66 Pulse Oximetry 96 95 01/18/18 10:25 01/18/18 10:49 01/18/18 11:49 Temperature Pulse Rate 117 H 115 H Respiratory Rate 20 Blood Pressure Pulse Oximetry 95 95 01/18/18 12:00 01/18/18 16:00 01/18/18 16:23 Temperature 100.9 F H 98.9 F Pulse Rate 118 H 113 H 112 H Respiratory Rate 22 22 Blood Pressure 112/66 108/64 Pulse Oximetry 96 98 Intake & Output 01/18/18 01/18/18 01/19/18 06:59 18:59 06:59 Intake Total 2220 / 2220 1000 / 1000 Output Total 700 / 700 Balance 2220 / 2220 300 / 300 Weight 77.8 kg Intake: IV 1100 / 1100 1000 / 1000 1/2 Normal Saline Inj 1,000 ML 1000 / 1000 1000 / 1000 @ 100 mls/hr IV.CONT .Q10H EDE Rx#:[id number] Merrem Inj 500 MG In NS Inj 100 100 / 100 ML @ 200 mls/hr IV.SIG Q8H EDE Rx#:[id number] Tube Feeding 920 / 920 Tube Irrigant 200 / 200 Output: Urine 700 / 700 Other: Post Void Residual 300 # Voids 2 Date of Last Bowel Movement 01/18/18 # Bowel Movements 2 Narrative: afebrile encephalopathic, no meaningful interaction HEAD: Normocephalic. EYES: No scleral icterus. No injection or drainage. NECK: Supple, trachea midline. No JVD or lymphadenopathy. + trach CARDIOVASCULAR: Regular rate and rhythm RESPIRATORY: Breath sounds equal bilaterally, diminished at bases. No accessory muscle use. Right pigtail chest tube in place Left pigtail catheter in place GASTROINTESTINAL: Abdomen soft, non-tender, nondistended. +PEG tube in place garcia in place Back- with sacral decubitus- eschar MUSCULOSKELETAL: No cyanosis, or edema. some superficail wounds Neuro: opens eyes to painful stimuli. - Urinary Catheter Management Straight Cath placed during this visit: yes Urethral indwelling: Yes Reason for continuing: Severe pressure ulcer/wound Insertion date: 01/09/18 Insertion time: 08:00 Indwelling Urethral Catheter Cath placed during this visit: yes Reason for continuing: Acute urinary retention Insertion date: 01/11/18 Insertion time: 16:18 Assessment and Plan - Plan 1. Acute Kidney injury. 2. Respiratory failure. 3. Sepsis. 4. Anemia. 5. Encephalopathy. Patient has now again Acute kidney injury, Most likely due to ATN due to Hypotension and sepsis. Continue antibiotics. Creatinine is slightly better, 1.6 now. Sodium is now 149, continue IVF with 1/2 NS. Over all prognosis is guarded.
--- NOTE | 2018-01-18 23:49 | P.PNID ---
Subjective Remarks: febrile up to 100.9 UA with pyuria, clx growing GNBs BC from yday NGTD urine clx P BL CTs are draining Antibiotics: diflucan zosyn vanco Lines: periferal Lines ok Past Medical History: reviewed Allergies/Adverse Reactions: Allergies No Known Allergies Allergy (Verified 12/25/17 11:22) Objective Vital Signs 01/18/18 00:00 01/18/18 03:37 01/18/18 03:56 Temperature 97.1 F L 98.0 F Pulse Rate 105 H 98 H 109 H Respiratory Rate 20 18 Blood Pressure 98/60 L 90/60 L Pulse Oximetry 97 96 01/18/18 09:00 01/18/18 10:25 01/18/18 10:49 Temperature 97.8 F Pulse Rate 118 H 117 H Respiratory Rate 22 20 Blood Pressure 111/66 Pulse Oximetry 95 95 95 01/18/18 11:49 01/18/18 12:00 01/18/18 16:00 Temperature 100.9 F H 98.9 F Pulse Rate 115 H 118 H 113 H Respiratory Rate 22 22 Blood Pressure 112/66 108/64 Pulse Oximetry 96 98 01/18/18 16:23 01/18/18 20:28 Temperature Pulse Rate 112 H 115 H Respiratory Rate 23 Blood Pressure Pulse Oximetry Intake & Output 01/18/18 01/18/18 01/19/18 06:59 18:59 06:59 Intake Total 2220 / 2220 1000 / 1000 200 / 200 Output Total 700 / 700 140 / 140 Balance 2220 / 2220 300 / 300 60 / 60 Weight 77.8 kg Intake: IV 1100 / 1100 1000 / 1000 200 / 200 1/2 Normal Saline Inj 1,000 ML 1000 / 1000 1000 / 1000 @ 100 mls/hr IV.CONT .Q10H EDE Rx#:[id number] Diflucan 400 mg Premix Bag 200 200 / 200 ML @ 100 mls/hr IV.SIG Q24H EDE Rx#:[id number] Merrem Inj 500 MG In NS Inj 100 100 / 100 ML @ 200 mls/hr IV.SIG Q8H EDE Rx#:[id number] Tube Feeding 920 / 920 Tube Irrigant 200 / 200 Output: Urine 700 / 700 Chest Tube Drainage 140 / 140 Left 90 / 90 Right Mid-Axillary Chest 50 / 50 Other: Post Void Residual 300 # Voids 2 Date of Last Bowel Movement 01/18/18 # Bowel Movements 2 01/04/18 12:45 Fluid - Pleural fluid Acid Fast Bacilli Smear - Final No acid fast bacilli seen 01/04/18 12:45 Fluid - Pleural fluid Mycobacterial Culture - Preliminary No growth in 2 weeks 01/16/18 13:15 Blood - Peripheral Aerobic Blood Culture - Preliminary No growth in 2 days 01/16/18 13:15 Blood - Peripheral Anaerobic Blood Culture - Preliminary No growth in 2 days 01/16/18 13:05 Blood - Peripheral Aerobic Blood Culture - Preliminary No growth in 2 days 01/16/18 13:05 Blood - Peripheral Anaerobic Blood Culture - Preliminary No growth in 2 days 01/17/18 00:23 Catheterized Urine Urine Culture - Preliminary gram negative rods 01/03/18 17:00 Fluid - Pleural fluid Fungal Smear - Final No fungal elements seen 01/03/18 17:00 Fluid - Pleural fluid Fungal Culture - Preliminary No growth in 2 weeks 01/03/18 17:00 Fluid - Pleural fluid Acid Fast Bacilli Smear - Final No acid fast bacilli seen 01/03/18 17:00 Fluid - Pleural fluid Mycobacterial Culture - Preliminary No growth in 2 weeks 01/11/18 06:55 Blood - Peripheral Aerobic Blood Culture - Final Xenia tropicalis 01/11/18 06:55 Blood - Peripheral Anaerobic Blood Culture - Final No growth in 5 days 01/11/18 07:00 Blood - Peripheral Aerobic Blood Culture - Final No growth in 5 days 01/11/18 07:00 Blood - Peripheral Anaerobic Blood Culture - Final No growth in 5 days Lab - Hematology Results 01/17/18 07:51 WBC 13.0 H RBC 2.93 L Hgb 8.2 L Hct 26.6 L MCV 91.0 MCH 28.1 MCHC 30.9 L RDW 19.7 H Plt Count 424 MPV 9.0 Neut % (Auto) 55.1 Lymph % (Auto) 35.2 [place] % (Auto) 6.9 Eos % (Auto) 2.2 Baso % (Auto) 0.6 Neut # (Auto) 7.1 Lymph # (Auto) 4.6 [place] # (Auto) 0.9 Eos # (Auto) 0.3 Baso # (Auto) 0.1 WBC Differential . Differential Comment Auto diff final Lab - Chemistry Results 01/16/18 01/17/18 01/17/18 21:24 00:13 06:00 Sodium Potassium Chloride Carbon Dioxide Anion Gap BUN Creatinine Estimated GFR POC Glucose 202 H 201 H 242 H Random Glucose Calcium 01/17/18 01/17/18 01/17/18 07:51 09:05 12:33 Sodium 151 H Potassium 5.3 H Chloride 121 H Carbon Dioxide 25.5 Anion Gap 5 BUN 60 H Creatinine 1.73 H Estimated GFR 38 L POC Glucose 242 H 234 H Random Glucose 211 H Calcium 7.8 L 01/17/18 01/17/18 01/18/18 17:57 22:48 00:20 Sodium Potassium Chloride Carbon Dioxide Anion Gap BUN Creatinine Estimated GFR POC Glucose 191 H 181 H 188 H Random Glucose Calcium 01/18/18 01/18/18 01/18/18 06:45 07:25 10:43 Sodium 149 H Potassium 5.3 H Chloride 117 H Carbon Dioxide 22.2 Anion Gap 10 BUN 53 H Creatinine 1.65 H Estimated GFR 41 L POC Glucose 236 H 276 H Random Glucose 216 H Calcium 7.7 L 01/18/18 01/18/18 01/18/18 13:51 18:16 22:04 Sodium Potassium Chloride Carbon Dioxide Anion Gap BUN Creatinine Estimated GFR POC Glucose 235 H 227 H 202 H Random Glucose Calcium Imaging: ITS Impressions Head MRI 01/02/18 00:00 CONCLUSION: 1. 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 2. Cerebral atrophy and chronic ischemic small vessel vasculopathy. Chest CT 01/03/18 00:00 CONCLUSION: 1. Large bilateral pleural effusions occupying more than half of the right and left hemithorax. Abdomen/Pelvis CT 01/13/18 00:00 CONCLUSION: 1. Small bilateral pleural effusions and basilar infiltrates with bilateral chest tubes in place. 2. No evidence of ascites or bowel dilatation. Abdomen/Bladder Ultrasound 01/15/18 00:00 CONCLUSION: 1. Negative renal sonogram. Chest X-Ray 01/17/18 06:00 CONCLUSION: 1. Tracheostomy tube may have been called back slightly. Suggest residual inspection 2. Bilateral cochlear thoracostomy tubes are stable in position. There may be slight increase in the right-sided pleural effusion, however. 3. Patchy bilateral airspace disease persists. Physical Exam: GENERAL: Patient is 77 yo on Tpiece SKIN: Warm and dry. No rash HEAD: Normocephalic. EYES: No scleral icterus. No injection or drainage. NECK: Supple, trachea midline. + trach in place with large amount of drainage CARDIOVASCULAR: RRR. No murmurs, rubs, gallops RESPIRATORY: Breath sounds equal bilaterally. No accessory muscle use. b/l CT in place with serous drainage GASTROINTESTINAL: Abdomen soft, non-tender, nondistended. +PEG tube in place MUSCULOSKELETAL: No cyanosis, or edema. GUl; garcia in place with yellow urine Neuro: Obtunded, eyes closed, not follows Assessment and Plan - Plan Sacral decub with possible underlying infection, osteomyelitis. Prior h/o ESBL E.coli on 10/24/2017. Possible HCAP GNR UTI ? ESBL given h/o ESBL. 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 Encephalopathy: strokes in hospital, optic neuritis on presentation. New issue: fungemia, C. tropicalis - persistent fungemia Persistent fever Gram negative UTI Recs: cont Fluconazol repeat BC Once documented blood sterility will cont fluconazole at least 2 weeks MOnitoring parameters: CBC CMP transition to oral form when ready for dc fu repeat blood clx CXR cont broad spectrum abx will change abx to meropenem will adjust abx per clx result dw family @ b/s
[2018-01-19] MEDS: Vancomycin Inj 1,000 MG in Sodium Chlor 0.9% Inj 250 ML IV.SIG SCH (03:56)
[2018-01-19] MEDS: Insulin NovoLIN Regular Correctional Sugar Inj SQ SCH ×3 (06:05→17:43)
[2018-01-19] MEDS: Sodium Chloride 0.45 % Inj 1,000 ML IV.CONT SCH ×3 (06:08→22:33)
[2018-01-19 08:20] LABS: INR 2.5 Ratio; Prothrombin Time 25.3 sec (9.8-11.6)
[2018-01-19 08:34] LABS: Calcium 7.7 mg/dL (8.5-10.1); Carbon Dioxide 21.3 meq/L (21.0-32.0); Potassium 5.2 meq/L (3.5-5.1)
[2018-01-19] MEDS: Methylphenidate HCl 5 MG Tablet PO SCH ×3 (08:49→13:33)
[2018-01-19] MEDS: Collagenase Oint 30 GM Tube TOPICAL SCH (08:49)
[2018-01-19] MEDS: Famotidine 20 MG Tablet PO SCH ×3 (08:49→21:05)
[2018-01-19] MEDS: Hydrocortisone Acetate 25 MG Supp RECTAL SCH (08:50)
[2018-01-19] MEDS: Insulin Detemir Inj 1,000 UNIT/10 ML Vial SQ SCH ×3 (08:50→13:32)
[2018-01-19] MEDS: Polyethylene Glycol 3350 17 GM Packet PO SCH ×2 (08:50→09:23)
--- NOTE | 2018-01-19 11:16 | P.PN ---
Subjective Interval history: T max 100.4 yesterday 12 noon since then afebrile this am- ope episode of vomiting on sucitning- suctioned TF from the trach no diarrhea reported patient awake - made eye contact Physical Exam Vital signs: Vital Signs 01/18/18 11:49 01/18/18 12:00 01/18/18 16:00 Temperature 100.9 F H 98.9 F Pulse Rate 115 H 118 H 113 H Respiratory Rate 22 22 Blood Pressure 112/66 108/64 Pulse Oximetry 96 98 01/18/18 16:23 01/18/18 20:00 01/18/18 20:28 Temperature 99.5 F Pulse Rate 112 H 112 H 115 H Respiratory Rate 18 23 Blood Pressure 99/55 L Pulse Oximetry 97 01/18/18 23:56 01/19/18 00:00 01/19/18 02:14 Temperature 98.8 F Pulse Rate 118 H 112 H 113 H Respiratory Rate 18 Blood Pressure 97/54 L Pulse Oximetry 99 01/19/18 08:27 01/19/18 10:14 Temperature 98.2 F Pulse Rate 118 H Respiratory Rate 18 Blood Pressure 105/62 Pulse Oximetry 96 100 Intake & Output 01/18/18 01/19/18 01/19/18 18:59 06:59 18:59 Intake Total 1000 / 1000 1300 / 1300 Output Total 700 / 700 140 / 140 1100 / 1100 Balance 300 / 300 1160 / 1160 -1100 / -1100 Weight 77.8 kg Intake: IV 1000 / 1000 1300 / 1300 1/2 Normal Saline Inj 1,000 ML 1000 / 1000 1000 / 1000 @ 100 mls/hr IV.CONT .Q10H EDE Rx#:[id number] Diflucan 400 mg Premix Bag 200 200 / 200 ML @ 100 mls/hr IV.SIG Q24H EDE Rx#:[id number] Merrem Inj 1,000 MG In NS Inj 100 / 100 100 ML @ 200 mls/hr IV.SIG Q12H EDE Rx#:[id number] Output: Urine 700 / 700 1100 / 1100 Chest Tube Drainage 140 / 140 Left 90 / 90 Right Mid-Axillary Chest 50 / 50 Other: Date of Last Bowel Movement 01/18/18 01/19/18 01/19/18 # Bowel Movements 2 Narrative: encephalopathic, no meaningful interaction, eyes open- made eye contact this am with nm HEAD: Normocephalic. EYES: No scleral icterus. No injection or drainage. NECK: Supple, trachea midline. No JVD or lymphadenopathy. + trach CARDIOVASCULAR: Regular rate and rhythm RESPIRATORY: Breath sounds equal bilaterally, diminished at bases. No accessory muscle use. no rhonchis Right pigtail chest tube in place Left pigtail catheter in place GASTROINTESTINAL: Abdomen soft, non-tender, nondistended. +PEG tube in place garcia in place Back- with sacral decubitus- eschar MUSCULOSKELETAL: No cyanosis, or edema. some superficail wounds Neuro: awake this am- made eye contact - Urinary Catheter Management Straight Cath placed during this visit: yes Urethral indwelling: Yes Reason for continuing: Severe pressure ulcer/wound Insertion date: 01/09/18 Insertion time: 08:00 Indwelling Urethral Catheter Cath placed during this visit: yes Reason for continuing: Acute urinary retention Insertion date: 01/11/18 Insertion time: 16:18 Results - Labs CBC & Chem 7: 01/17/18 07:51 01/19/18 07:55 Laboratory Results - last 24 hr 01/17/18 01/18/18 01/18/18 00:23 13:51 18:16 PT INR Sodium Potassium Chloride Carbon Dioxide Anion Gap BUN Creatinine Estimated GFR POC Glucose 235 H 227 H Random Glucose Calcium Urine Color Yellow Urine Clarity Cloudy H Urine pH 8.0 Ur Specific [place] 1.015 Urine Protein 100 H Urine Glucose (UA) Negative Urine Ketones Negative Urine Occult Blood Small H Urine Nitrate Negative Urine Bilirubin Negative Urine Urobilinogen Less than 2 Ur Leukocyte Esterase Large H Urine RBC 14 H Urine WBC Urine WBC Clumps Many H Ur Transition Epith Cell <1 Ur Renal Epithelial Cell 1 Urine Bacteria Moderate H Urine Mucus Few H Micro UA Comment Cath-culture ind Urine Culture Comments Cath-cult indicated 01/18/18 01/18/18 01/19/18 22:04 23:46 05:57 PT INR Sodium Potassium Chloride Carbon Dioxide Anion Gap BUN Creatinine Estimated GFR POC Glucose 202 H 193 H 212 H Random Glucose Calcium Urine Color Urine Clarity Urine pH Ur Specific [place] Urine Protein Urine Glucose (UA) Urine Ketones Urine Occult Blood Urine Nitrate Urine Bilirubin Urine Urobilinogen Ur Leukocyte Esterase Urine RBC Urine WBC Urine WBC Clumps Ur Transition Epith Cell Ur Renal Epithelial Cell Urine Bacteria Urine Mucus Micro UA Comment Urine Culture Comments 01/19/18 01/19/18 01/19/18 07:28 07:55 07:55 PT 25.3 H INR 2.5 Sodium 148 H Potassium 5.2 H Chloride 118 H Carbon Dioxide 21.3 Anion Gap 9 BUN 51 H Creatinine 1.58 H Estimated GFR 43 L POC Glucose 216 H Random Glucose 186 H Calcium 7.7 L Urine Color Urine Clarity Urine pH Ur Specific [place] Urine Protein Urine Glucose (UA) Urine Ketones Urine Occult Blood Urine Nitrate Urine Bilirubin Urine Urobilinogen Ur Leukocyte Esterase Urine RBC Urine WBC Urine WBC Clumps Ur Transition Epith Cell Ur Renal Epithelial Cell Urine Bacteria Urine Mucus Micro UA Comment Urine Culture Comments 01/19/18 08:52 PT INR Sodium Potassium Chloride Carbon Dioxide Anion Gap BUN Creatinine Estimated GFR POC Glucose 194 H Random Glucose Calcium Urine Color Urine Clarity Urine pH Ur Specific [place] Urine Protein Urine Glucose (UA) Urine Ketones Urine Occult Blood Urine Nitrate Urine Bilirubin Urine Urobilinogen Ur Leukocyte Esterase Urine RBC Urine WBC Urine WBC Clumps Ur Transition Epith Cell Ur Renal Epithelial Cell Urine Bacteria Urine Mucus Micro UA Comment Urine Culture Comments Microbiology 01/16/18 13:15 Blood - Peripheral Aerobic Blood Culture - Preliminary No growth in 3 days 01/16/18 13:15 Blood - Peripheral Anaerobic Blood Culture - Preliminary No growth in 3 days 01/16/18 13:05 Blood - Peripheral Aerobic Blood Culture - Preliminary No growth in 3 days 01/16/18 13:05 Blood - Peripheral Anaerobic Blood Culture - Preliminary No growth in 3 days 01/17/18 00:23 Catheterized Urine Urine Culture - Preliminary Pseudomonas aeruginosa gram negative rods 01/04/18 12:45 Fluid - Pleural fluid Acid Fast Bacilli Smear - Final No acid fast bacilli seen 01/04/18 12:45 Fluid - Pleural fluid Mycobacterial Culture - Preliminary No growth in 2 weeks Assessment and Plan - Assessment (1) Encephalopathy Code(s): G93.40 - Encephalopathy, unspecified Status: Acute (2) CVA (cerebral vascular accident) Code(s): I63.9 - Cerebral infarction, unspecified Status: Acute (3) Wound of sacral region Code(s): S31.000A - Unspecified open wound of lower back and pelvis without penetration into retroperitoneum, initial encounter Status: Acute (4) NSTEMI (non-ST elevated myocardial infarction) Code(s): I21.4 - Non-ST elevation (NSTEMI) myocardial infarction Status: Resolved (5) Anemia Code(s): D64.9 - Anemia, unspecified Status: Acute (6) Respiratory failure with hypoxia and hypercapnia Code(s): J96.91 - Respiratory failure, unspecified with hypoxia; J96.92 - Respiratory failure, unspecified with hypercapnia Status: Resolved (7) Optic neuritis Code(s): H46.9 - Unspecified optic neuritis Status: Resolved - Plan This is a 77-year-old male who initially presented with vision changes with concern for optic neuritis versus temporal arteritis. Hospital course complicated by NSTEMI, E. coli urinary tract infection, rectal bleeding with acute anemia. He became lethargic, admitted to the intensive care unit and found to have CVA. CTA head and neck revealed atherosclerotic disease. After giving TPA, the patient had tonic-clonic seizure and became obtunded with acute hypoxic and hypercarbic respiratory failure, intubated. Patient was then transferred to the hospitalist service when patient was more stable. 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 Repeat MRI unchanged. Patient also had seizures, EEG showed diffuse encephalopathy. -Continue Coumadin, statin, Ritalin. After discussion patient's daughter, she would like to try to get the patient off Keppra and hopefully will improve his mental status. She is aware that there is risk for seizures. Follow while off Keppra. Neuropsychology following. Was on steroids for optic neuritis. Encephalopathy persists, no change in mental status, family continues to be aggressive in goals ID Recurrent UTI-prior history of ESBL E. coli- new culture - 01/17- growing gram negative Sacral decub with possible underlying infection, osteomyelitis. Fungemia Possible Aspiration PNA - Sacral decub has eschar with possible underlying osteomyelitis. Patient family refused surgical sacral debridement after seen by plastic surgery. Wound care and Dr. Upton following. 12/31 Wound cx: ESBL E.coli -Garcia catheter changed 01/09/2018, Urine culture on 01/09 grew Pseudomonas pansensitive, -Status post ciprofloxacin and imipenem. Echocardiogram on 01/12, no vegetation. Ophthalmology has seen the patient, no fungal keratitis or fungal eye infection. - Repeat blood cultures still growing Xenia tropicalis, switched back to fluconazole per infectious disease. Still having fever, rechecked blood culture , repeat urinalysis still shows large leukocyte esterase and pyuria, leukocytosis increasing, persistence of bilateral airspace disease, CTT still in position with increased right-sided pleural effusion. - ID ff - Started on meropenem, and vancomycin. Continue Diflucan, once documented blood sterility, will continue fluconazole for at least 2 weeks whether oral or IV. Follow-up repeat blood culture. - FF up final urine cultures- 01/17- growing Pseudomonas - final s still pending - Blood cultures from 01/16 negative so far - tube feeding suctioned from trach- hold TF for now - wound care daily- per wound care team recommendations - check CXR, KUB Pulmo Acute on chronic respiratory failure status post tracheostomy- currently on 28% T piece Bilateral Pleural effusion, with healthcare associated pneumonia - Pigtail catheters in place, pleural fluid cultures negative consistent with transudative effusion. Status post imipenem and ciprofloxacin.Continue bronchodilators, pulmonary toilet. pulmonary following. Repeat chest x-ray as above. - minimal secretions - trach care- Acute renal failure on top of chronic kidney disease HYpernatremia HYperkalemia -creatinine trending up- non oliguirc- ff UO and BMP - continue on 06/29 NS- Precipitation Equipment Tender ff - Kidney ultrasound unremarkable. - continue free water - Nephrology ff - creatinine and Na trending down gradually - ff daily - give x1 Kayexalate DM type 2 - A1C 9.6, BGs still high, - Levemir increased to 15 units twice a day on 01/17/2018, increase further if BG 's are still high., cont sliding scale insulin CHRONIC RESOLVED ISSUES: Scrotal Edema/ulcerations - seen by Urology: continue with clean intermittent catheter as needed, scrotal elevation NSTEMI Echo 10/19: LV systolic function is moderately reduced, EF 40-45%. continue Coreg and statin. Anemia secondary to GI bleed- Status post EGD colonoscopy. GI has signed off, patient with healed rectal ulcers and hemorrhoids. Continue Pepcid. FEN Continue tube feeds-Glucerna 1.5 with goal rate 60ml/hr- will hold for now with episode of vomiting and TF coming out of secretions GI prophylaxis- on Pepcid DVT prophylaxis-on coumadin- INR therapeutic 01/07 long discussion with patient's daughter - terminal manager plan- she says it's difficult for them to take her home- working - SNF- no insurance- patient here cvisiting from [place] when this unfortunate event happened (5) Anemia Qualifiers: Anemia type: unspecified type Qualified Code(s): D64.9 - Anemia, unspecified
--- NOTE | 2018-01-19 14:55 | XR ---
EXAM DATE: 01/19/2018 2:43 PM EDT AGE/SEX: 77 years / Male INDICATIONS: Shortness of breath; infiltrate. CLINICAL DATA: This is the patient's subsequent encounter. Patient reports that signs and symptoms h ave been present for 4 - 6 months and indicates a pain score of Nonresponsive. MEDICAL/SURGICAL HISTORY: . Diabetes mellitus type II. Hypertension. Cardiovascular disease. . Coronary artery stent. tracheostomy bilateral chest tube. COMPARISON: [facility] [place] 1[place], [place]/17/2018. . FINDINGS: The small chest tubes are again noted and unchanged in appearance. Tiny bilateral pleural effusions a re noted. No recurrent pneumothorax is noted. Scattered infiltrates are noted bilaterally consistent with mild pulmonary vascular congestion or pneumonia. A tracheostomy tube is stable in position well above the levy. The heart is stable. CONCLUSION: 1. No evidence of pneumothorax. 2. Scattered infiltrates consistent with mild pulmonary vascular congestion versus pneumonia. 3. Tiny bilateral pleural effusions. Electronically signed by: Ion Man MD 01/19/2018 2:53 PM EDT
[2018-01-19] MEDS ORDERED: Sodium Polystyrene Sulfate 30 GM/120 ML Enema RECTAL ONE (15:00)
--- NOTE | 2018-01-19 15:31 | XR ---
EXAM DATE: 01/19/2018 2:45 PM EDT AGE/SEX: 77 years / Male INDICATIONS: Vomiting. CLINICAL DATA: This is the patient's subsequent encounter. Patient reports that signs and symptoms h ave been present for 1 day and indicates a pain score of Nonresponsive. MEDICAL/SURGICAL HISTORY: . Renal insufficiency, chronic. Diabetes mellitus type II. Cardiovasc ular disease None. [place] [facility] [place]. . FINDINGS: The abdominal bowel gas pattern is normal. No abnormal masses, calcifications, or organomegaly is s een. The osseous structures are unremarkable. No evidence of obstruction. Electronically signed by: Abundio Fleming MD 01/19/2018 3:30 PM EDT
--- NOTE | 2018-01-19 16:20 | P.PNPAL ---
Reason for Visit Reason for visit: a. To assist with evaluation and management of symptoms including: pain, dyspnea, nausea b. To assist medical decision maker(s) with: better understanding of current medical conditions; weighing benefits/burdens of medical treatment options; making medical treatment decisions. Subjective Subjective/Interval History: Patient minimally responsive at time of my visit. Chest x ray this morning did not show pneumothorax. There are scattered infiltrates, and tiny bilateral pleural effusions. WBC 13.0. Has been afebrile since noon time yesterday TMax of 100.9. ID following, for fugemia, persistent fever, persistent G neg UTI (psuedomonas). Currently on meropenem. Family/Friend Interactions: family at bedside. No change in goc. Advance Directives Living Will: Never completed Health Care Surrogate: Never completed Durable Power of Cancer Program Coordinator: Never completed Documented care wishes:: No written documentation of health care goals/preferences. . Objective Vital Signs: Vital Signs 01/18/18 16:23 01/18/18 20:00 01/18/18 20:28 Temperature 99.5 F Pulse Rate 112 H 112 H 115 H Respiratory Rate 18 23 Blood Pressure 99/55 L Pulse Oximetry 97 01/18/18 23:56 01/19/18 00:00 01/19/18 02:14 Temperature 98.8 F Pulse Rate 118 H 112 H 113 H Respiratory Rate 18 Blood Pressure 97/54 L Pulse Oximetry 99 01/19/18 08:27 01/19/18 10:14 01/19/18 12:00 Temperature 98.2 F 99.5 F Pulse Rate 118 H 115 H Respiratory Rate 18 18 Blood Pressure 105/62 105/63 Pulse Oximetry 96 100 97 Intake & Output 01/18/18 01/19/18 01/19/18 18:59 06:59 18:59 Intake Total 1000 / 1000 1300 / 1300 Output Total 700 / 700 140 / 140 1100 / 1100 Balance 300 / 300 1160 / 1160 -1100 / -1100 Weight 77.8 kg Intake: IV 1000 / 1000 1300 / 1300 1/2 Normal Saline Inj 1,000 ML 1000 / 1000 1000 / 1000 @ 100 mls/hr IV.CONT .Q10H EDE Rx#:[id number] Diflucan 400 mg Premix Bag 200 200 / 200 ML @ 100 mls/hr IV.SIG Q24H EDE Rx#:[id number] Merrem Inj 1,000 MG In NS Inj 100 / 100 100 ML @ 200 mls/hr IV.SIG Q12H EDE Rx#:[id number] Output: Urine 700 / 700 1100 / 1100 Chest Tube Drainage 140 / 140 Left 90 / 90 Right Mid-Axillary Chest 50 / 50 Other: Date of Last Bowel Movement 01/18/18 01/19/18 01/19/18 # Bowel Movements 2 Physical Exam: CONSTITUTIONAL/GENERAL: This is a frail elderly, ill -appearing gentleman; minimally responsive; tachypnic, tachycardic in a med surg bed. TUBES/LINES/DRAINS: peripheral IVs; SCDs, [place] catheter; tracheostomy, peg tube ; bilateral chest tubes. SKIN: Warm to touch. ENT: Unable to assess hearing. Nose without bleeding. Mucaous membranes dry. Trach collar. CARDIOVASCULAR: Irregular rhythm. No audible murmur. Tachycardic. RESPIRATORY/CHEST: Symmetric, tachypnic, diminished to auscultation. A couple scattered rhonchi GASTROINTESTINAL: Abdomen soft, round. Bowel sounds present. NEUROLOGICAL: Does not open eyes to voice / exam. Grimace with movement. PSYCHIATRIC: Unable to assess due to level of responsiveness. . Diagnostic Tests Laboratory: Laboratory Results - last 72 hr 01/16/18 01/17/18 01/17/18 21:24 00:13 00:23 WBC RBC Hgb Hct MCV MCH MCHC RDW Plt Count MPV Neut % (Auto) Lymph % (Auto) [place] % (Auto) Eos % (Auto) Baso % (Auto) Neut # (Auto) Lymph # (Auto) [place] # (Auto) Eos # (Auto) Baso # (Auto) WBC Differential Differential Comment PT INR APTT Sodium Potassium Chloride Carbon Dioxide Anion Gap BUN Creatinine Estimated GFR POC Glucose 202 H 201 H Random Glucose Calcium Urine Color Yellow Urine Clarity Cloudy H Urine pH 8.0 Ur Specific [place] 1.015 Urine Protein 100 H Urine Glucose (UA) Negative Urine Ketones Negative Urine Occult Blood Small H Urine Nitrate Negative Urine Bilirubin Negative Urine Urobilinogen Less than 2 Ur Leukocyte Esterase Large H Urine RBC 14 H Urine WBC Urine WBC Clumps Many H Ur Transition Epith Cell <1 Ur Renal Epithelial Cell 1 Urine Bacteria Moderate H Urine Mucus Few H Micro UA Comment Cath-culture ind Urine Culture Comments Cath-cult indicated 01/17/18 01/17/1801/17/18 06:00 07:51 07:51 WBC 13.0 H RBC 2.93 L Hgb 8.2 L Hct 26.6 L MCV 91.0 MCH 28.1 MCHC 30.9 L RDW 19.7 H Plt Count 424 MPV 9.0 Neut % (Auto) 55.1 Lymph % (Auto) 35.2 [place] % (Auto) 6.9 Eos % (Auto) 2.2 Baso % (Auto) 0.6 Neut # (Auto) 7.1 Lymph # (Auto) 4.6 [place] # (Auto) 0.9 Eos # (Auto) 0.3 Baso # (Auto) 0.1 WBC Differential . Differential Comment Auto diff final PT 23.0 H INR 2.3 APTT 36.1 H Sodium Potassium Chloride Carbon Dioxide Anion Gap BUN Creatinine Estimated GFR POC Glucose 242 H Random Glucose Calcium Urine Color Urine Clarity Urine pH Ur Specific [place] Urine Protein Urine Glucose (UA) Urine Ketones Urine Occult Blood Urine Nitrate Urine Bilirubin Urine Urobilinogen Ur Leukocyte Esterase Urine RBC Urine WBC Urine WBC Clumps Ur Transition Epith Cell Ur Renal Epithelial Cell Urine Bacteria Urine Mucus Micro UA Comment Urine Culture Comments 01/17/18 01/17/18 01/17/18 07:51 09:05 12:33 WBC RBC Hgb Hct MCV MCH MCHC RDW Plt Count MPV Neut % (Auto) Lymph % (Auto) [place] % (Auto) Eos % (Auto) Baso % (Auto) Neut # (Auto) Lymph # (Auto) [place] # (Auto) Eos # (Auto) Baso # (Auto) WBC Differential Differential Comment PT INR APTT Sodium 151 H Potassium 5.3 H Chloride 121 H Carbon Dioxide 25.5 Anion Gap 5 BUN 60 H Creatinine 1.73 H Estimated GFR 38 L POC Glucose 242 H 234 H Random Glucose 211 H Calcium 7.8 L Urine Color Urine Clarity Urine pH Ur Specific [place] Urine Protein Urine Glucose (UA) Urine Ketones Urine Occult Blood Urine Nitrate Urine Bilirubin Urine Urobilinogen Ur Leukocyte Esterase Urine RBC Urine WBC Urine WBC Clumps Ur Transition Epith Cell Ur Renal Epithelial Cell Urine Bacteria Urine Mucus Micro UA Comment Urine Culture Comments 01/17/18 01/17/18 01/18/18 17:57 22:48 00:20 WBC RBC Hgb Hct MCV MCH MCHC RDW Plt Count MPV Neut % (Auto) Lymph % (Auto) [place] % (Auto) Eos % (Auto) Baso % (Auto) Neut # (Auto) Lymph # (Auto) [place] # (Auto) Eos # (Auto) Baso # (Auto) WBC Differential Differential Comment PT INR APTT Sodium Potassium Chloride Carbon Dioxide Anion Gap BUN Creatinine Estimated GFR POC Glucose 191 H 181 H 188 H Random Glucose Calcium Urine Color Urine Clarity Urine pH Ur Specific [place] Urine Protein Urine Glucose (UA) Urine Ketones Urine Occult Blood Urine Nitrate Urine Bilirubin Urine Urobilinogen Ur Leukocyte Esterase Urine RBC Urine WBC Urine WBC Clumps Ur Transition Epith Cell Ur Renal Epithelial Cell Urine Bacteria Urine Mucus Micro UA Comment Urine Culture Comments 01/18/18 01/18/18 01/18/18 06:45 07:25 07:25 WBC RBC Hgb Hct MCV MCH MCHC RDW Plt Count MPV Neut % (Auto) Lymph % (Auto) [place] % (Auto) Eos % (Auto) Baso % (Auto) Neut # (Auto) Lymph # (Auto) [place] # (Auto) Eos # (Auto) Baso # (Auto) WBC Differential Differential Comment PT 22.9 H INR 2.3 APTT Sodium 149 H Potassium 5.3 H Chloride 117 H Carbon Dioxide 22.2 Anion Gap 10 BUN 53 H Creatinine 1.65 H Estimated GFR 41 L POC Glucose 236 H Random Glucose 216 H Calcium 7.7 L Urine Color Urine Clarity Urine pH Ur Specific [place] Urine Protein Urine Glucose (UA) Urine Ketones Urine Occult Blood Urine Nitrate Urine Bilirubin Urine Urobilinogen Ur Leukocyte Esterase Urine RBC Urine WBC Urine WBC Clumps Ur Transition Epith Cell Ur Renal Epithelial Cell Urine Bacteria Urine Mucus Micro UA Comment Urine Culture Comments 01/18/18 01/18/18 01/18/18 10:43 13:51 18:16 WBC RBC Hgb Hct MCV MCH MCHC RDW Plt Count MPV Neut % (Auto) Lymph % (Auto) [place] % (Auto) Eos % (Auto) Baso % (Auto) Neut # (Auto) Lymph # (Auto) [place] # (Auto) Eos # (Auto) Baso # (Auto) WBC Differential Differential Comment PT INR APTT Sodium Potassium Chloride Carbon Dioxide Anion Gap BUN Creatinine Estimated GFR POC Glucose 276 H 235 H 227 H Random Glucose Calcium Urine Color Urine Clarity Urine pH Ur Specific [place] Urine Protein Urine Glucose (UA) Urine Ketones Urine Occult Blood Urine Nitrate Urine Bilirubin Urine Urobilinogen Ur Leukocyte Esterase Urine RBC Urine WBC Urine WBC Clumps Ur Transition Epith Cell Ur Renal Epithelial Cell Urine Bacteria Urine Mucus Micro UA Comment Urine Culture Comments 01/18/18 01/18/18 01/19/18 22:04 23:46 05:57 WBC RBC Hgb Hct MCV MCH MCHC RDW Plt Count MPV Neut % (Auto) Lymph % (Auto) [place] % (Auto) Eos % (Auto) Baso % (Auto) Neut # (Auto) Lymph # (Auto) [place] # (Auto) Eos # (Auto) Baso # (Auto) WBC Differential Differential Comment PT INR APTT Sodium Potassium Chloride Carbon Dioxide Anion Gap BUN Creatinine Estimated GFR POC Glucose 202 H 193 H 212 H Random Glucose Calcium Urine Color Urine Clarity Urine pH Ur Specific [place] Urine Protein Urine Glucose (UA) Urine Ketones Urine Occult Blood Urine Nitrate Urine Bilirubin Urine Urobilinogen Ur Leukocyte Esterase Urine RBC Urine WBC Urine WBC Clumps Ur Transition Epith Cell Ur Renal Epithelial Cell Urine Bacteria Urine Mucus Micro UA Comment Urine Culture Comments 01/19/18 01/19/18 01/19/18 07:28 07:55 07:55 WBC RBC Hgb Hct MCV MCH MCHC RDW Plt Count MPV Neut % (Auto) Lymph % (Auto) [place] % (Auto) Eos % (Auto) Baso % (Auto) Neut # (Auto) Lymph # (Auto) [place] # (Auto) Eos # (Auto) Baso # (Auto) WBC Differential Differential Comment PT 25.3 H INR 2.5 APTT Sodium 148 H Potassium 5.2 H Chloride 118 H Carbon Dioxide 21.3 Anion Gap 9 BUN 51 H Creatinine 1.58 H Estimated GFR 43 L POC Glucose 216 H Random Glucose 186 H Calcium 7.7 L Urine Color Urine Clarity Urine pH Ur Specific [place] Urine Protein Urine Glucose (UA) Urine Ketones Urine Occult Blood Urine Nitrate Urine Bilirubin Urine Urobilinogen Ur Leukocyte Esterase Urine RBC Urine WBC Urine WBC Clumps Ur Transition Epith Cell Ur Renal Epithelial Cell Urine Bacteria Urine Mucus Micro UA Comment Urine Culture Comments 01/19/18 01/19/18 08:52 13:42 WBC RBC Hgb Hct MCV MCH MCHC RDW Plt Count MPV Neut % (Auto) Lymph % (Auto) [place] % (Auto) Eos % (Auto) Baso % (Auto) Neut # (Auto) Lymph # (Auto) [place] # (Auto) Eos # (Auto) Baso # (Auto) WBC Differential Differential Comment PT INR APTT Sodium Potassium Chloride Carbon Dioxide Anion Gap BUN Creatinine Estimated GFR POC Glucose 194 H 184 H Random Glucose Calcium Urine Color Urine Clarity Urine pH Ur Specific [place] Urine Protein Urine Glucose (UA) Urine Ketones Urine Occult Blood Urine Nitrate Urine Bilirubin Urine Urobilinogen Ur Leukocyte Esterase Urine RBC Urine WBC Urine WBC Clumps Ur Transition Epith Cell Ur Renal Epithelial Cell Urine Bacteria Urine Mucus Micro UA Comment Urine Culture Comments Result Diagrams: 01/17/18 07:51 01/19/18 07:55 Microbiology: Microbiology 01/16/18 13:15 Aerobic Blood Culture - Preliminary Blood - Peripheral No growth in 3 days Anaerobic Blood Culture - Preliminary No growth in 3 days 01/16/18 13:05 Aerobic Blood Culture - Preliminary Blood - Peripheral No growth in 3 days Anaerobic Blood Culture - Preliminary No growth in 3 days 01/17/18 00:23 Urine Culture - Preliminary Catheterized Urine Pseudomonas aeruginosa gram negative rods 01/04/18 12:45 Acid Fast Bacilli Smear - Final Fluid - Pleural fluid No acid fast bacilli seen Mycobacterial Culture - Preliminary No growth in 2 weeks 01/03/18 17:00 Fungal Smear - Final Fluid - Pleural fluid No fungal elements seen Fungal Culture - Preliminary No growth in 2 weeks 01/03/18 17:00 Acid Fast Bacilli Smear - Final Fluid - Pleural fluid No acid fast bacilli seen Mycobacterial Culture - Preliminary No growth in 2 weeks Procedures: * 11/09/17 - Intubation * 11/11/17 - Extubated * 11/18/17 - Re-intubated * Tracheostomy * PEG tube Assessment and Plan - Disease Oriented Problem List (1) Carotid stenosis (2) Debility (3) Aspiration pneumonia (4) Renal insufficiency (5) Diabetes (6) Optic neuritis (7) Pleural effusion (8) Anemia (9) CVA (cerebral vascular accident) (10) Hypoalbuminemia (11) Wound of sacral region (12) Status post tracheostomy (13) Fungemia - Symptom Scale (1) Pain 0-10 Scale: Unable to quantify (2) Encephalopathy 0-10 Scale: Unable to quantify (3) Dyspnea 0-10 Scale: Unable to quantify (4) Nausea 0-10 Scale: Unable to quantify Pertinent Non-Medical Issues: Psychosocial: Patient was born and raised in [place], he lives in [place]. Primary language is A[place]i. Patient is , retired, has 2 daughters. Highest level of education is high school. Spiritual: [employer]. Legal: No known advanced directives have been completed. Not made available if they were completed. Ethical issues impacting care: Patient incapacitated for medical decision- making. Important Contacts: Family providing son-in-law's contact information: Avtar Ashraf . -pending information Daughter Alexandra -pending contact information Daughter Lanette -not very forthcoming with contact info. State "I am always here." Prognosis: Patient with a complicated prolonged hospitalization to include ESBL E. coli bacteremia, NSTEMI, UTI, aspiration pneumonia, GI bleed, stroke, pleural effusions, seizures. He remains encephalopathic. He is deconditioned and hypoalbuminemic. He is s/p tracheostomy and PEG. He has managed to wean off vent support and bleeding has stopped, but he remains quite encephalopathic and continues to be suffer from recurrent infections. Family wants him on anti- coagulants to protect agains stroke so he now has increased chance of re-bleed. Based on hospitalization to date, chances of surviving the hospital are growing worse, not better. Should he survive the hospitalization, he will be very vulnerable to major setbacks due to his overall frailty and nutritional status. It is unlikely, should he survive the hospitalization, that he will be able to function independently in the future. Patient is certainly eligible for hospice services at such time that the medical decision makers are ready to opt for comfort oriented care. . Code Status: Full Code Plan: ==CODE STATUS: FULL CODE ==HEALTHCARE DECISION-MAKING: . Patient incapacitated for medical decision- making secondary to clinical condition. No reasonable probability at this time that he will recover capacity. has indicated she wants her daughters to manage medical decisions especially Lanette. does not want to participate in medical decision making. ==GOALS OF CARE: Family express aggressive goals. They continue to see improvement in his neurologic status between infections that the medical team is not seeing. Family has tremendous rosetta, sees some changes as evidence of miraculous healing , and continues to expect more improvement. ==SYMPTOMS: = * Debility: Multifactorial secondary to multiple acute on chronic illnesses and prolonged hospitalization, severe hypoalbuminemia. Remains critically ill. * Encephalopathy probably multi-factorial -- stroke, infection, medications, prolonged hospitalization, etc. Though family believes there has been significant improvement, he continues to appear quite encephalopathic to the medical team. * Pain: Secondary to lines, prolonged bedbound status, wounds, catheter, vascular access lines, etc. No further recommendations at this time. * Dyspnea: Initially managed with vent support. Now off vent and on trach collar. Increased dyspnea now due to pleural effusions and fever. * nausea- pt had bm. zofran available. == Disposition -- should patient be able to improve, post-acute care arrangements will likely be difficult given his foreign citizenship and lack of payor source. Should he decline and goals become comfort oriented, he would certainly be a hospice candidate and would be accepted as a linsey case. ==Palliative care will continue to follow to assist with symptom management and to further clarify goals of medical treatment as the clinical course evolves. . . Attestation Attestation: To help prompt me to consider important information that might be impacting today's encounter and assessment, information from prior notes written by myself or my colleagues may have been "brought forward" into today's note. My signature on this note, however, is an attestation that I personally performed the exam, history, and/or decision-making noted today, and, unless otherwise indicated, the interactions with patient, family, and staff as well as the review of records all occurred today. I also attest that the listed assessment and stated plan reflect my best clinical judgment today based on the combination of historical information, prior notes, and today's exam/ interactions. When time spent is documented, it refers only to time spent today by the signer, or if indicated, combined time spent today by collaborating physician/nurse practitioner.
[2018-01-19] MEDS: Acetaminophen 325 MG Tablet PO PRN (18:19)
--- NOTE | 2018-01-19 18:28 | P.PN ---
Subjective Interval history: opens eyes low grade emp this AM chest tubes minimal drainage no SOB Physical Exam Vital signs: Vital Signs 01/18/18 20:00 01/18/18 20:28 01/18/18 23:56 Temperature 99.5 F Pulse Rate 112 H 115 H 118 H Respiratory Rate 18 23 Blood Pressure 99/55 L Pulse Oximetry 97 01/19/18 00:00 01/19/18 02:14 01/19/18 08:27 Temperature 98.8 F 98.2 F Pulse Rate 112 H 113 H 118 H Respiratory Rate 18 18 Blood Pressure 97/54 L 105/62 Pulse Oximetry 99 96 01/19/18 10:14 01/19/18 12:00 Temperature 99.5 F Pulse Rate 115 H Respiratory Rate 18 Blood Pressure 105/63 Pulse Oximetry 100 97 Intake & Output 01/18/18 01/19/18 01/19/18 18:59 06:59 18:59 Intake Total 1000 / 1000 1300 / 1300 1350 / 1350 Output Total 700 / 700 140 / 140 1100 / 1100 Balance 300 / 300 1160 / 1160 250 / 250 Weight 77.8 kg Intake: IV 1000 / 1000 1300 / 1300 1350 / 1350 1/2 Normal Saline Inj 1,000 ML 1000 / 1000 1000 / 1000 1000 / 1000 @ 100 mls/hr IV.CONT .Q10H EDE Rx#:[id number] Diflucan 400 mg Premix Bag 200 200 / 200 ML @ 100 mls/hr IV.SIG Q24H EDE Rx#:[id number] Merrem Inj 1,000 MG In NS Inj 100 / 100 100 / 100 100 ML @ 200 mls/hr IV.SIG Q12H EDE Rx#:[id number] Vancomycin Inj 1,000 MG In NS 250 / 250 Inj 250 ML @ 250 mls/hr IV.SIG Q24H EDE Rx#:[id number] Output: Urine 700 / 700 1100 / 1100 Chest Tube Drainage 140 / 140 Left 90 / 90 Right Mid-Axillary Chest 50 / 50 Other: Date of Last Bowel Movement 01/18/18 01/19/18 01/19/18 # Bowel Movements 2 Narrative: encephalopathic, no meaningful interaction, eyes open- made eye contact this am with me HEAD: Normocephalic. EYES: No scleral icterus. No injection or drainage. NECK: Supple, trachea midline. No JVD or lymphadenopathy. + trach CARDIOVASCULAR: Regular rate and rhythm RESPIRATORY: Breath sounds equal bilaterally, diminished at bases. No accessory muscle use. no rhonchis Right pigtail chest tube in place Left pigtail catheter in place GASTROINTESTINAL: Abdomen soft, non-tender, nondistended. +PEG tube in place garcia in place Back- with sacral decubitus- eschar MUSCULOSKELETAL: No cyanosis, or edema. some superficail wounds Neuro: awake this am- made eye contact - Urinary Catheter Management Straight Cath placed during this visit: yes Urethral indwelling: Yes Reason for continuing: Severe pressure ulcer/wound Insertion date: 01/09/18 Insertion time: 08:00 Indwelling Urethral Catheter Cath placed during this visit: yes Reason for continuing: Acute urinary retention Insertion date: 01/11/18 Insertion time: 16:18 Results - Labs CBC & Chem 7: 01/17/18 07:51 01/19/18 07:55 Laboratory Results - last 24 hr 01/17/18 01/18/18 01/18/18 00:23 18:16 22:04 PT INR Sodium Potassium Chloride Carbon Dioxide Anion Gap BUN Creatinine Estimated GFR POC Glucose 227 H 202 H Random Glucose Calcium Urine Color Yellow Urine Clarity Cloudy H Urine pH 8.0 Ur Specific [place] 1.015 Urine Protein 100 H Urine Glucose (UA) Negative Urine Ketones Negative Urine Occult Blood Small H Urine Nitrate Negative Urine Bilirubin Negative Urine Urobilinogen Less than 2 Ur Leukocyte Esterase Large H Urine RBC 14 H Urine WBC Urine WBC Clumps Many H Ur Transition Epith Cell <1 Ur Renal Epithelial Cell 1 Urine Bacteria Moderate H Urine Mucus Few H Micro UA Comment Cath-culture ind Urine Culture Comments Cath-cult indicated 01/18/18 01/19/18 01/19/18 23:46 05:57 07:28 PT INR Sodium Potassium Chloride Carbon Dioxide Anion Gap BUN Creatinine Estimated GFR POC Glucose 193 H 212 H 216 H Random Glucose Calcium Urine Color Urine Clarity Urine pH Ur Specific [place] Urine Protein Urine Glucose (UA) Urine Ketones Urine Occult Blood Urine Nitrate Urine Bilirubin Urine Urobilinogen Ur Leukocyte Esterase Urine RBC Urine WBC Urine WBC Clumps Ur Transition Epith Cell Ur Renal Epithelial Cell Urine Bacteria Urine Mucus Micro UA Comment Urine Culture Comments 01/19/18 01/19/18 01/19/18 07:55 07:55 08:52 PT 25.3 H INR 2.5 Sodium 148 H Potassium 5.2 H Chloride 118 H Carbon Dioxide 21.3 Anion Gap 9 BUN 51 H Creatinine 1.58 H Estimated GFR 43 L POC Glucose 194 H Random Glucose 186 H Calcium 7.7 L Urine Color Urine Clarity Urine pH Ur Specific [place] Urine Protein Urine Glucose (UA) Urine Ketones Urine Occult Blood Urine Nitrate Urine Bilirubin Urine Urobilinogen Ur Leukocyte Esterase Urine RBC Urine WBC Urine WBC Clumps Ur Transition Epith Cell Ur Renal Epithelial Cell Urine Bacteria Urine Mucus Micro UA Comment Urine Culture Comments 01/19/18 13:42 PT INR Sodium Potassium Chloride Carbon Dioxide Anion Gap BUN Creatinine Estimated GFR POC Glucose 184 H Random Glucose Calcium Urine Color Urine Clarity Urine pH Ur Specific [place] Urine Protein Urine Glucose (UA) Urine Ketones Urine Occult Blood Urine Nitrate Urine Bilirubin Urine Urobilinogen Ur Leukocyte Esterase Urine RBC Urine WBC Urine WBC Clumps Ur Transition Epith Cell Ur Renal Epithelial Cell Urine Bacteria Urine Mucus Micro UA Comment Urine Culture Comments Microbiology 01/16/18 13:15 Blood - Peripheral Aerobic Blood Culture - Preliminary No growth in 3 days 01/16/18 13:15 Blood - Peripheral Anaerobic Blood Culture - Preliminary No growth in 3 days 01/16/18 13:05 Blood - Peripheral Aerobic Blood Culture - Preliminary No growth in 3 days 01/16/18 13:05 Blood - Peripheral Anaerobic Blood Culture - Preliminary No growth in 3 days 01/17/18 00:23 Catheterized Urine Urine Culture - Preliminary Pseudomonas aeruginosa gram negative rods - Imaging Impressions Abdomen X-Ray 01/19/18 00:00 CONCLUSION: Chest X-Ray 01/19/18 00:00 CONCLUSION: 1. No evidence of pneumothorax. 2. Scattered infiltrates consistent with mild pulmonary vascular congestion versus pneumonia. 3. Tiny bilateral pleural effusions. Assessment and Plan - Plan RESPIRATORY FAILURE FEVER cva cad respiratory failure post trach bilateral effusions bilateral chest tubes in place minimal tube drainage plan o2 as needed CULTURES DONE PULM TOILET REMOVED LEFT CHEST TUBE WELL TOLERATED
--- NOTE | 2018-01-19 18:35 | P.PNID ---
Subjective Remarks: low grade fever pt pulled his L chest tube out Antibiotics: diflucan meropenem vanco Lines: periferal Lines ok Past Medical History: reviewed Allergies/Adverse Reactions: Allergies No Known Allergies Allergy (Verified 12/25/17 11:22) Objective Vital Signs 01/18/18 20:00 01/18/18 20:28 01/18/18 23:56 Temperature 99.5 F Pulse Rate 112 H 115 H 118 H Respiratory Rate 18 23 Blood Pressure 99/55 L Pulse Oximetry 97 01/19/18 00:00 01/19/18 02:14 01/19/18 08:27 Temperature 98.8 F 98.2 F Pulse Rate 112 H 113 H 118 H Respiratory Rate 18 18 Blood Pressure 97/54 L 105/62 Pulse Oximetry 99 96 01/19/18 10:14 01/19/18 12:00 Temperature 99.5 F Pulse Rate 115 H Respiratory Rate 18 Blood Pressure 105/63 Pulse Oximetry 100 97 Intake & Output 01/18/18 01/19/18 01/19/18 18:59 06:59 18:59 Intake Total 1000 / 1000 1300 / 1300 1350 / 1350 Output Total 700 / 700 140 / 140 1100 / 1100 Balance 300 / 300 1160 / 1160 250 / 250 Weight 77.8 kg Intake: IV 1000 / 1000 1300 / 1300 1350 / 1350 1/2 Normal Saline Inj 1,000 ML 1000 / 1000 1000 / 1000 1000 / 1000 @ 100 mls/hr IV.CONT .Q10H EDE Rx#:[id number] Diflucan 400 mg Premix Bag 200 200 / 200 ML @ 100 mls/hr IV.SIG Q24H EDE Rx#:[id number] Merrem Inj 1,000 MG In NS Inj 100 / 100 100 / 100 100 ML @ 200 mls/hr IV.SIG Q12H EDE Rx#:[id number] Vancomycin Inj 1,000 MG In NS 250 / 250 Inj 250 ML @ 250 mls/hr IV.SIG Q24H EDE Rx#:[id number] Output: Urine 700 / 700 1100 / 1100 Chest Tube Drainage 140 / 140 Left 90 / 90 Right Mid-Axillary Chest 50 / 50 Other: Date of Last Bowel Movement 01/18/18 01/19/18 01/19/18 # Bowel Movements 2 01/16/18 13:15 Blood - Peripheral Aerobic Blood Culture - Preliminary No growth in 3 days 01/16/18 13:15 Blood - Peripheral Anaerobic Blood Culture - Preliminary No growth in 3 days 01/16/18 13:05 Blood - Peripheral Aerobic Blood Culture - Preliminary No growth in 3 days 01/16/18 13:05 Blood - Peripheral Anaerobic Blood Culture - Preliminary No growth in 3 days 01/17/18 00:23 Catheterized Urine Urine Culture - Preliminary Pseudomonas aeruginosa gram negative rods 01/04/18 12:45 Fluid - Pleural fluid Acid Fast Bacilli Smear - Final No acid fast bacilli seen 01/04/18 12:45 Fluid - Pleural fluid Mycobacterial Culture - Preliminary No growth in 2 weeks 01/03/18 17:00 Fluid - Pleural fluid Fungal Smear - Final No fungal elements seen 01/03/18 17:00 Fluid - Pleural fluid Fungal Culture - Preliminary No growth in 2 weeks 01/03/18 17:00 Fluid - Pleural fluid Acid Fast Bacilli Smear - Final No acid fast bacilli seen 01/03/18 17:00 Fluid - Pleural fluid Mycobacterial Culture - Preliminary No growth in 2 weeks Lab - Chemistry Results 01/17/18 01/18/18 01/18/18 22:48 00:20 06:45 Sodium Potassium Chloride Carbon Dioxide Anion Gap BUN Creatinine Estimated GFR POC Glucose 181 H 188 H 236 H Random Glucose Calcium 01/18/18 01/18/18 01/18/18 07:25 10:43 13:51 Sodium 149 H Potassium 5.3 H Chloride 117 H Carbon Dioxide 22.2 Anion Gap 10 BUN 53 H Creatinine 1.65 H Estimated GFR 41 L POC Glucose 276 H 235 H Random Glucose 216 H Calcium 7.7 L 01/18/18 01/18/18 01/18/18 18:16 22:04 23:46 Sodium Potassium Chloride Carbon Dioxide Anion Gap BUN Creatinine Estimated GFR POC Glucose 227 H 202 H 193 H Random Glucose Calcium 01/19/18 01/19/18 01/19/18 05:57 07:28 07:55 Sodium 148 H Potassium 5.2 H Chloride 118 H Carbon Dioxide 21.3 Anion Gap 9 BUN 51 H Creatinine 1.58 H Estimated GFR 43 L POC Glucose 212 H 216 H Random Glucose 186 H Calcium 7.7 L 01/19/18 01/19/18 08:52 13:42 Sodium Potassium Chloride Carbon Dioxide Anion Gap BUN Creatinine Estimated GFR POC Glucose 194 H 184 H Random Glucose Calcium Imaging: ITS Impressions Head MRI 01/02/18 00:00 CONCLUSION: 1. 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 2. Cerebral atrophy and chronic ischemic small vessel vasculopathy. Chest CT 01/03/18 00:00 CONCLUSION: 1. Large bilateral pleural effusions occupying more than half of the right and left hemithorax. Abdomen/Pelvis CT 01/13/18 00:00 CONCLUSION: 1. Small bilateral pleural effusions and basilar infiltrates with bilateral chest tubes in place. 2. No evidence of ascites or bowel dilatation. Abdomen/Bladder Ultrasound 01/15/18 00:00 CONCLUSION: 1. Negative renal sonogram. Abdomen X-Ray 01/19/18 00:00 CONCLUSION: Chest X-Ray 01/19/18 00:00 CONCLUSION: 1. No evidence of pneumothorax. 2. Scattered infiltrates consistent with mild pulmonary vascular congestion versus pneumonia. 3. Tiny bilateral pleural effusions. Physical Exam: GENERAL: Patient is 77 yo on Tpiece SKIN: Warm and dry. No rash HEAD: Normocephalic. EYES: No scleral icterus. No injection or drainage. NECK: Supple, trachea midline. + trach in place with large amount of drainage CARDIOVASCULAR: RRR. No murmurs, rubs, gallops RESPIRATORY: Breath sounds equal bilaterally. No accessory muscle use. R CT in place with serous drainage GASTROINTESTINAL: Abdomen soft, non-tender, nondistended. +PEG tube in place MUSCULOSKELETAL: No cyanosis, + diffuse soft pitting edema. GUl; garcia in place with yellow urine Neuro: Obtunded, eyes closed all the time, not follows Assessment and Plan - Plan Sacral decub with possible underlying infection, osteomyelitis. Prior h/o ESBL E.coli on 10/24/2017. Possible HCAP GNR UTI ? ESBL given h/o ESBL. 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 Encephalopathy: strokes in hospital, optic neuritis on presentation. New issue: fungemia, C. tropicalis - persistent fungemia Persistent fever Gram negative UTI: PSAE and 2nd GNB Recs: cont Fluconazol repeat BC Once documented blood sterility will cont fluconazole at least 2 weeks MOnitoring parameters: CBC CMP transition to oral form when ready for dc fu repeat blood clx CXR cont meropenem dc vancomycin
--- NOTE | 2018-01-19 19:01 | P.PNNP ---
Subjective Interval history: Patient remain on the vent, unresponsive and clinically same. Physical Exam Vital signs: Vital Signs 01/18/18 20:00 01/18/18 20:28 01/18/18 23:56 Temperature 99.5 F Pulse Rate 112 H 115 H 118 H Respiratory Rate 18 23 Blood Pressure 99/55 L Pulse Oximetry 97 01/19/18 00:00 01/19/18 02:14 01/19/18 08:27 Temperature 98.8 F 98.2 F Pulse Rate 112 H 113 H 118 H Respiratory Rate 18 18 Blood Pressure 97/54 L 105/62 Pulse Oximetry 99 96 01/19/18 10:14 01/19/18 12:00 01/19/18 16:00 Temperature 99.5 F 101.4 F H Pulse Rate 115 H 118 H Respiratory Rate 18 18 Blood Pressure 105/63 106/64 Pulse Oximetry 100 97 98 Intake & Output 01/18/18 01/19/18 01/19/18 18:59 06:59 18:59 Intake Total 1000 / 1000 1300 / 1300 1350 / 1350 Output Total 700 / 700 140 / 140 1700 / 1700 Balance 300 / 300 1160 / 1160 -350 / -350 Weight 77.8 kg Intake: IV 1000 / 1000 1300 / 1300 1350 / 1350 1/2 Normal Saline Inj 1,000 ML 1000 / 1000 1000 / 1000 1000 / 1000 @ 100 mls/hr IV.CONT .Q10H EDE Rx#:[id number] Diflucan 400 mg Premix Bag 200 200 / 200 ML @ 100 mls/hr IV.SIG Q24H EDE Rx#:[id number] Merrem Inj 1,000 MG In NS Inj 100 / 100 100 / 100 100 ML @ 200 mls/hr IV.SIG Q12H EDE Rx#:[id number] Vancomycin Inj 1,000 MG In NS 250 / 250 Inj 250 ML @ 250 mls/hr IV.SIG Q24H EDE Rx#:[id number] Output: Urine 700 / 700 1700 / 1700 Chest Tube Drainage 140 / 140 Left 90 / 90 Right Mid-Axillary Chest 50 / 50 Other: Date of Last Bowel Movement 01/18/18 01/19/18 01/19/18 # Bowel Movements 2 Narrative: encephalopathic, no meaningful interaction, eyes open- made eye contact this am with me HEAD: Normocephalic. EYES: No scleral icterus. No injection or drainage. NECK: Supple, trachea midline. No JVD or lymphadenopathy. + trach CARDIOVASCULAR: Regular rate and rhythm RESPIRATORY: Breath sounds equal bilaterally, diminished at bases. No accessory muscle use. no rhonchis Right pigtail chest tube in place Left pigtail catheter in place GASTROINTESTINAL: Abdomen soft, non-tender, nondistended. +PEG tube in place garcia in place Back- with sacral decubitus- eschar MUSCULOSKELETAL: No cyanosis, or edema. some superficail wounds Neuro: awake this am- made eye contact - Urinary Catheter Management Straight Cath placed during this visit: yes Urethral indwelling: Yes Reason for continuing: Severe pressure ulcer/wound Insertion date: 01/09/18 Insertion time: 08:00 Indwelling Urethral Catheter Cath placed during this visit: yes Reason for continuing: Acute urinary retention Insertion date: 01/11/18 Insertion time: 16:18 Assessment and Plan - Plan 1. Acute Kidney injury. 2. Respiratory failure. 3. Sepsis. 4. Anemia. 5. Encephalopathy. Patient has now again Acute kidney injury, Most likely due to ATN due to Hypotension and sepsis. Continue antibiotics. Creatinine is slightly better, now it is 1.5 Sodium is now 148, continue IVF with 1/2 NS. Over all prognosis is guarded.
[2018-01-19] MEDS ORDERED: Sodium Polystyrene Sulfonate/Sorbitol Liq 15 GM/60 ML UDC NG/OG ONE (19:15)
[2018-01-20] MEDS ORDERED: Pharmacy Ordered Lab Info OTHER ONE (02:45)
[2018-01-20 07:08] LABS: INR 2.7 Ratio; Prothrombin Time 26.9 sec (9.8-11.6)
[2018-01-20 07:25] LABS: Albumin 1.3 g/dL (3.4-5.0); Anion Gap 8 meq/L (5-15); Aspartate Aminotransferase 73 U/L (15-37); Blood Urea Nitrogen 52 mg/dL (7-18); Calcium 7.7 mg/dL (8.5-10.1); Carbon Dioxide 19.7 meq/L (21.0-32.0); Chloride 118 meq/L (98-107); Glomerular Filtration Rate 42 mL/min (>89); Glucose,Random 176 mg/dL (74-106); Potassium 4.9 meq/L (3.5-5.1); Sodium 146 meq/L (136-145)
[2018-01-20 07:26] LABS: Alanine Aminotransferase 60 U/L (12-78)
[2018-01-20 07:28] LABS: Alkaline Phosphatase 210 U/L (45-117); Total Protein 7.1 g/dL (6.4-8.2)
[2018-01-20] MEDS: Insulin Detemir Inj 1,000 UNIT/10 ML Vial SQ SCH ×3 (08:08→21:39)
[2018-01-20] MEDS: Hydrocortisone Acetate 25 MG Supp RECTAL SCH ×3 (08:08→21:21)
[2018-01-20] MEDS: Famotidine 20 MG Tablet PO SCH ×2 (08:26→21:25)
[2018-01-20] MEDS: Insulin NovoLIN Regular Correctional Sugar Inj SQ SCH ×4 (08:27→18:10)
[2018-01-20] MEDS: Polyethylene Glycol 3350 17 GM Packet PO SCH (08:27)
[2018-01-20] MEDS: Sodium Chloride 0.45 % Inj 1,000 ML IV.CONT SCH ×2 (08:27→17:57)
[2018-01-20] MEDS: Collagenase Oint 30 GM Tube TOPICAL SCH (08:28)
[2018-01-20] MEDS: Methylphenidate HCl 5 MG Tablet PO SCH ×2 (08:38→12:31)
--- NOTE | 2018-01-20 11:55 | P.CONWOU ---
History of Present Illness Service: 01/20/18 Primary Care Provider: No Primary Care Physician Chief Complaint: Sacral Ulcer History of Present Illness: Here for follow-up of patient's sacral ulcer which is currently in stable. Accompanied by the wound care team. Daughter present at bedside and patient has deteriorated and is not responsive to stimuli at this time. Patient currently on ventilator. PMFSH - Travel History History of Recent Travel: Yes (Patient flew from [place]) Medications and Allergies Active Medications: Active Medications Acetaminophen (Tylenol) 650 mg PO Q6H PRN PRN Reason: FEVER/PAIN SCALE 1 TO 2 Last Admin: 01/19/18 18:19 Dose: 650 mg Al Hydroxide/Mg Hydroxide (Milk Of Ayah Liq) 30 ml PO Q12H PRN PRN Reason: Mild constipation Albuterol (Duoneb Neb (Prn)) 1 ampul NEB Q2HR NEB PRN PRN Reason: SHORTNESS OF BREATH Atorvastatin Calcium (Llipitor) 80 mg PO HS [facility] Last Admin: 01/19/18 21:55 Dose: 80 mg Carvedilol (Coreg) 3.125 mg G-TUBE BID [facility] Last Admin: 01/20/18 08:26 Dose: 3.125 mg Cod Liver Oil/Zinc Oxide (Desitin 40% Oint) 1 applicatio TOPICAL UNSCH PRN PRN Reason: DIAPER RASH Collagenase (Santyl Oint) 1 applicatio TOPICAL DAILY [facility] Last Admin: 01/20/18 08:28 Dose: 1 applicatio Dextrose (D50w Vial) 25 ml IV.PUSH UNSCH PRN PRN Reason: HYPOGLYCEMIA-SEE COMMENTS Doxazosin Mesylate (Cardura) 4 mg PO DAILY [facility] Last Admin: 12/31/17 09:52 Dose: Not Given Famotidine (Pepcid) 10 mg PO BID [facility] Last Admin: 01/20/18 08:26 Dose: 10 mg Glucagon (Glucagon Inj) 1 mg OTHER UNSCH PRN PRN Reason: HYPOGLYCEMIA - SEE COMMENTS Heparin Sodium (Porcine) (Heparin Inj) 1,000 units OTHER WITH DIALYSIS PRN PRN Reason: SEE LABEL COMMENTS Hydrocortisone Acetate (Hemorrhoidal Hc Supp) 25 mg RECTAL BID [facility] Last Admin: 01/20/18 08:28 Dose: 25 mg Hydromorphone HCl (Dilaudid Pf Inj) 0.5 mg IV.PUSH Q4H PRN PRN Reason: pain 8-10 or not taking po Last Admin: 01/09/18 02:47 Dose: 0.5 mg Hyoscyamine (Levsin Liq) 0.125 mg SL Q4H PRN PRN Reason: SECRETIONS Last Admin: 01/13/18 00:42 Dose: 0.125 mg Meropenem 1,000 mg/ Sodium (Chloride) 100 mls @ 200 mls/hr IV.SIG Q12H [facility] Last Infusion: 01/20/18 09:58 Dose: Infused Pharmacy Profile Note (Coumadin Consult Pharmacy) mls @ 0 mls/hr OTHER UNSCH EDE Fluconazole (Diflucan 400 Mg Premix Bag) 200 mls @ 100 mls/hr IV.SIG Q24H [facility] Last Admin: 01/19/18 21:05 Dose: 100 mls/hr Sodium Chloride (1/2 Normal Saline Inj) 1,000 mls @ 100 mls/hr IV.CONT .Q10H [facility] Last Admin: 01/20/18 08:27 Dose: 100 mls/hr Insulin Detemir (Levemir Inj) 15 unit SQ BID [facility] Last Admin: 01/20/18 08:27 Dose: Not Given Insulin Human Regular (Novolin R Supplemental Scale) 0 units SQ Q6HR [facility]; Protocol Last Admin: 01/20/18 08:45 Dose: Not Given Ipratropium Ventura (Atrovent Neb) 0.5 mg NEB BID NEB [facility] Last Admin: 01/20/18 08:43 Dose: 0.5 mg Ipratropium [place] (Atrovent Neb) 0.5 mg NEB Q4HR NEB PRN PRN Reason: WHEEZING Last Admin: 01/08/18 09:35 Dose: 0.5 mg Methylphenidate HCl (Ritalin) 10 mg PO BID@0800,1200 [facility] Last Admin: 01/20/18 08:38 Dose: 10 mg Miscellaneous (Pill Splitter) 1 each OTHER UNSCH PRN PRN Reason: SEE LABEL COMMENTS Ondansetron HCl (Zofran Inj) 4 mg IV.PUSH Q6H PRN PRN Reason: NAUSEA OR VOMITING Polyethylene Glycol (Miralax) 17 gm PO DAILY [facility] Last Admin: 01/20/18 08:27 Dose: Not Given Pramoxine HCl (Proctofoam) 1 applicatio RECTAL Q6HR [facility] Last Admin: 01/20/18 08:45 Dose: Not Given Sennosides (Senokot) 17.2 mg PO Q12H PRN PRN Reason: Moderate constipation Sodium Chloride (Ns Flush) 2 ml IV.FLUSH UNSCH PRN PRN Reason: FLUSH AFTER USING IV ACCESS Last Admin: 01/10/18 08:18 Dose: 2 ml Sodium Chloride (Ns Flush) 2 ml IV.FLUSH BID EDE Last Admin: 01/20/18 08:28 Dose: Not Given Sodium Chloride (Ns Flush) 10 ml IV.FLUSH UNSCH PRN PRN Reason: SEE LABEL COMMENTS Last Admin: 01/11/18 20:49 Dose: 10 ml Warfarin Sodium (Coumadin) 3 mg G-TUBE DAILY@1600 [facility] Allergies Allergy/AdvReac Type Severity Reaction Status Date / Time Glucerna 1.5 AdvReac Vomiting Uncoded 02/09/18 12:04 Home Medications Medication Instructions Recorded Confirmed Type Actrapid 80 SUB-Q BID 12/25/17 History loperamide 2 mg PO DIRECTED PRN 12/25/17 12/25/17 History nepafenac 1 drp OPHTHALMIC (EYE) 12/25/17 History tobramycin-dexamethasone [TobraDex] 1 drp OPHTHALMIC (EYE) 12/25/17 12/25/17 History Physical Exam Vital signs: Vital Signs 01/19/18 12:00 01/19/18 16:00 01/19/18 20:00 Temperature 99.5 F 101.4 F H 100.7 F H Pulse Rate 115 H 118 H 117 H Respiratory Rate 18 18 18 Blood Pressure 105/63 106/64 107/59 L Pulse Oximetry 97 98 99 01/19/18 20:51 01/19/18 22:00 01/20/18 00:00 Temperature 97.8 F Pulse Rate 109 H 107 H Respiratory Rate 21 18 18 Blood Pressure 119/70 Pulse Oximetry 99 98 01/20/18 02:00 01/20/18 04:00 01/20/18 08:00 Temperature 99.7 F H 99.3 F Pulse Rate 102 H 84 109 H Respiratory Rate 18 20 Blood Pressure 102/50 L 113/64 Pulse Oximetry 96 98 Intake & Output 01/19/18 01/20/18 01/20/18 18:59 06:59 18:59 Intake Total 2653 / 2653 1100 / 1100 1100 / 1100 Output Total 2442 / 2442 600 / 600 Balance 211 / 211 500 / 500 1100 / 1100 Weight 77.8 kg 77.8 kg Intake: IV 1350 / 1350 1100 / 1100 1100 / 1100 1/2 Normal Saline Inj 1,000 ML 1000 / 1000 1000 / 1000 1000 / 1000 @ 100 mls/hr IV.CONT .Q10H EDE Rx#:[id number] Merrem Inj 1,000 MG In NS Inj 100 / 100 100 / 100 100 / 100 100 ML @ 200 mls/hr IV.SIG Q12H EDE Rx#:[id number] Vancomycin Inj 1,000 MG In NS 250 / 250 Inj 250 ML @ 250 mls/hr IV.SIG Q24H EDE Rx#:[id number] Oral 0 / 0 Tube Feeding 920 / 920 Tube Irrigant 200 / 200 Water Bolus Amount 60 / 60 Other 123 / 123 Output: Urine 2300 / 2300 600 / 600 Stool 1 / 1 Emesis 1 / Chest Tube Drainage 140 / 140 Left 90 / 90 Right Mid-Axillary Chest 50 / 50 Other: Post Void Residual 300 # Voids 2 # Incontinent Voids 0 Date of Last Bowel Movement 01/19/18 01/19/18 01/20/18 # Bowel Movements 2 # Incontinent Bowel Movements 1 - Urinary Catheter Management Straight Cath placed during this visit: yes Urethral indwelling: Yes Reason for continuing: Severe pressure ulcer/wound Insertion date: 01/09/18 Insertion time: 08:00 Indwelling Urethral Catheter Cath placed during this visit: yes Reason for continuing: Severe pressure ulcer/wound Insertion date: 01/11/18 Insertion time: 16:18 Wound/Pressure Injury - Patient Status Premedicated for Pain Prior to Dressing Change: No - Wound Sacrum Wound Staging: Unstageable Wound Assessment: Ongoing Wound Type: Pressure Injury Is This a Chronic Wound: Yes Requested from Provider a Wound Care Consult: No Length (cm): 9.5 (cm) Width (cm): 8 (cm) Depth (cm): 0 (eschar) Wound Bed Appearance: Necrotic, [place], Red Surrounding Tissue Appearance: Erythema Surrounding Tissue Temperature: Warm Drainage Description: Serosanguinous Drainage Amount: None Drainage Odor: No Odor Dressing Status: Dry & Intact Cleansing Solution: Saline Topical: Enzymatic Debridement Ointment Wound Packing Type: Gauze Pads Primary Dressing: Gauze Pad Cover Dressing: primapore Wound Dressing Change Date: 01/17/18 Scrotum Wound Assessment: Ongoing Wound Type: Abrasion Is This a Chronic Wound: Yes Requested from Provider a Wound Care Consult: Yes Wound Bed Appearance: [place] Surrounding Tissue Appearance: Erythema Surrounding Tissue Temperature: Warm Drainage Description: Serous Drainage Amount: None Drainage Odor: No Odor Dressing Status: Open to Air Cleansing Solution: Saline Topical: calazime Wound Dressing Change Date: 12/28/17 Right Calf Wound Assessment: Ongoing Wound Type: Abrasion Length (cm): 2 Width (cm): 2 Wound Bed Appearance: Necrotic, [place], Yellow Surrounding Tissue Appearance: [place] Surrounding Tissue Temperature: Warm Drainage Description: Purulent Drainage Amount: None Drainage Odor: No Odor Dressing Status: Open to Air Cleansing Solution: Saline Topical: Enzymatic Debridement Ointment Cover Dressing: Gauze Pads - Additional Information Wound dimensions this week are 9.4cmx9.2cmx1.9cm( measured from distal end with fascia ;Wound was cleaned with normal saline and dressed with nickel thick santyl and moistened gauzwe Incision - Patient Status Premedicated for Pain Prior to Dressing Change: No Assessment and Plan - Assessment (1) Ulcer of sacral region, unstageable Code(s): L98.429 - Non-pressure chronic ulcer of back with unspecified severity Status: Acute Plan: 01/20/18:Wound dimensions this week are [id number] eschar and then slough. Using sterile scissors and forceps, loose unstable eschar was removed cleanly leaving slough and esposed muscle tissue with granulation tissue. This was mechanically debrided and then cleaned with normal saline and then dressed with santyl and covered with moistened gauze and border gauze. Patient tolerated this well. 01/13/18:Wound dimensions this week are 9.4cmx9.2cmx1.9cm at the distal edge with fascia with eschar. Wound cleaned with normal saline and dressed with nickel thick Santyl and covered with moistened gauze and border gauze. (2) Ulcer of right leg Code(s): L97.919 - Non-pressure chronic ulcer of unspecified part of right lower leg with unspecified severity Status: Acute Plan: 01/20/18: Wound dimensions this week are 1.8cmx1.2cmx slough. Wound was selectively debrided to remove slough and devitatlized tissue until a good bleeding base was achieved. Wound was then cleaned with normal saline and dressed with Santyl, moistened gauze and border gauze. Patient tolerated this well. (3) Ulcer of right ankle Code(s): L97.319 - Non-pressure chronic ulcer of right ankle with unspecified severity Status: Acute - Plan 01/19/18: Wound dimensions this week are : 0.6cmx0.4cm x slough. Wound was mechanically debrided until a good bleeding base was achieved and then dressed with santyl and covered with moistened gauze and optifoam and gauze and jose e. Patient tolerated this well.
--- NOTE | 2018-01-20 12:38 | P.PN ---
Subjective Interval history: overnight no acute events- t Max [address]- draining grossly clear urine at bedside- Dr. Smyth did a sacral wound debridement - Physical Exam Vital signs: Vital Signs 01/19/18 16:00 01/19/18 20:00 01/19/18 20:51 Temperature 101.4 F H 100.7 F H Pulse Rate 118 H 117 H 109 H Respiratory Rate 18 18 21 Blood Pressure 106/64 107/59 L Pulse Oximetry 98 99 99 01/19/18 22:00 01/20/18 00:00 01/20/18 02:00 Temperature 97.8 F Pulse Rate 107 H 102 H Respiratory Rate 18 18 Blood Pressure 119/70 Pulse Oximetry 98 01/20/18 04:00 01/20/18 08:00 Temperature 99.7 F H 99.3 F Pulse Rate 84 108 H Respiratory Rate 18 20 Blood Pressure 102/50 L 113/64 Pulse Oximetry 96 98 Intake & Output 01/19/18 01/20/18 01/20/18 18:59 06:59 18:59 Intake Total 2653 / 2653 1100 / 1100 1100 / 1100 Output Total 2442 / 2442 600 / 600 Balance 211 / 211 500 / 500 1100 / 1100 Weight 77.8 kg 77.8 kg Intake: IV 1350 / 1350 1100 / 1100 1100 / 1100 1/2 Normal Saline Inj 1,000 ML 1000 / 1000 1000 / 1000 1000 / 1000 @ 100 mls/hr IV.CONT .Q10H EDE Rx#:[id number] Merrem Inj 1,000 MG In NS Inj 100 / 100 100 / 100 100 / 100 100 ML @ 200 mls/hr IV.SIG Q12H EDE Rx#:[id number] Vancomycin Inj 1,000 MG In NS 250 / 250 Inj 250 ML @ 250 mls/hr IV.SIG Q24H EDE Rx#:[id number] Oral 0 / 0 Tube Feeding 920 / 920 Tube Irrigant 200 / 200 Water Bolus Amount 60 / 60 Other 123 / 123 Output: Urine 2300 / 2300 600 / 600 Stool 1 / 1 Emesis 1 / Chest Tube Drainage 140 / 140 Left 90 / 90 Right Mid-Axillary Chest 50 / 50 Other: Post Void Residual 300 # Voids 2 # Incontinent Voids 0 Date of Last Bowel Movement 01/19/18 01/19/18 01/20/18 # Bowel Movements 2 # Incontinent Bowel Movements 1 Narrative: eyes open- made eye contact HEAD: Normocephalic. EYES: No scleral icterus. No injection or drainage. NECK: Supple, trachea midline. No JVD or lymphadenopathy. + trach CARDIOVASCULAR: Regular rate and rhythm RESPIRATORY: Breath sounds equal bilaterally, diminished at bases. No accessory muscle use. no rhonchis Right pigtail chest tube in place GASTROINTESTINAL: Abdomen soft, non-tender, nondistended. +PEG tube in place garcia in place Back- with sacral decubitus- eschar- debrided at bedside today 01/20- by Dr. Smyth MUSCULOSKELETAL: No cyanosis, or edema. Neuro: eyes open - made eye contact - Urinary Catheter Management Straight Cath placed during this visit: yes Urethral indwelling: Yes Reason for continuing: Severe pressure ulcer/wound Insertion date: 01/09/18 Insertion time: 08:00 Indwelling Urethral Catheter Cath placed during this visit: yes Reason for continuing: Severe pressure ulcer/wound Insertion date: 01/11/18 Insertion time: 16:18 Results - Labs CBC & Chem 7: 01/20/18 13:15 01/20/18 06:50 Laboratory Results - last 24 hr 01/19/18 01/20/18 01/20/18 13:42 06:50 06:50 PT 26.9 H INR 2.7 Sodium Potassium Chloride Carbon Dioxide Anion Gap BUN Creatinine Estimated GFR POC Glucose 184 H Random Glucose Calcium Total Bilirubin AST ALT Alkaline Phosphatase Total Protein Albumin Vancomycin Trough 24.6 H 01/20/18 01/20/18 01/20/18 06:50 11:21 11:24 PT INR Sodium 146 H Potassium 4.9 Chloride 118 H Carbon Dioxide 19.7 L Anion Gap 8 BUN 52 H Creatinine 1.59 H Estimated GFR 42 L POC Glucose 219 H 201 H Random Glucose 176 H Calcium 7.7 L Total Bilirubin 0.3 AST 73 H ALT 60 Alkaline Phosphatase 210 H Total Protein 7.1 Albumin 1.3 L Vancomycin Trough Microbiology 01/16/18 13:15 Blood - Peripheral Aerobic Blood Culture - Preliminary No growth in 4 days 01/16/18 13:15 Blood - Peripheral Anaerobic Blood Culture - Preliminary No growth in 4 days 01/16/18 13:05 Blood - Peripheral Aerobic Blood Culture - Preliminary No growth in 4 days 01/16/18 13:05 Blood - Peripheral Anaerobic Blood Culture - Preliminary No growth in 4 days 01/17/18 00:23 Catheterized Urine Urine Culture - Final Pseudomonas aeruginosa Escherichia coli ESBL positive - Imaging Impressions Abdomen X-Ray 01/19/18 00:00 CONCLUSION: Chest X-Ray 01/19/18 00:00 CONCLUSION: 1. No evidence of pneumothorax. 2. Scattered infiltrates consistent with mild pulmonary vascular congestion versus pneumonia. 3. Tiny bilateral pleural effusions. Assessment and Plan - Assessment (1) Encephalopathy Code(s): G93.40 - Encephalopathy, unspecified Status: Acute (2) CVA (cerebral vascular accident) Code(s): I63.9 - Cerebral infarction, unspecified Status: Acute (3) Wound of sacral region Code(s): S31.000A - Unspecified open wound of lower back and pelvis without penetration into retroperitoneum, initial encounter Status: Acute (4) NSTEMI (non-ST elevated myocardial infarction) Code(s): I21.4 - Non-ST elevation (NSTEMI) myocardial infarction Status: Resolved (5) Anemia Code(s): D64.9 - Anemia, unspecified Status: Acute (6) Respiratory failure with hypoxia and hypercapnia Code(s): J96.91 - Respiratory failure, unspecified with hypoxia; J96.92 - Respiratory failure, unspecified with hypercapnia Status: Resolved (7) Optic neuritis Code(s): H46.9 - Unspecified optic neuritis Status: Resolved - Plan This is a 77-year-old male who initially presented with vision changes with concern for optic neuritis versus temporal arteritis. Hospital course complicated by NSTEMI, E. coli urinary tract infection, rectal bleeding with acute anemia. He became lethargic, admitted to the intensive care unit and found to have CVA. CTA head and neck revealed atherosclerotic disease. After giving TPA, the patient had tonic-clonic seizure and became obtunded with acute hypoxic and hypercarbic respiratory failure, intubated. Patient was then transferred to the hospitalist service when patient was more stable. 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 Repeat MRI unchanged. Patient also had seizures, EEG showed diffuse encephalopathy. -Continue Coumadin, statin, Ritalin. After discussion patient's daughter, she would like to try to get the patient off Keppra and hopefully will improve his mental status. She is aware that there is risk for seizures. Follow while off Keppra. Neuropsychology following. Was on steroids for optic neuritis. Encephalopathy persists, no change in mental status, family continues to be aggressive in goals ID REcurrent fever - spiked again Recurrent UTI-prior history of ESBL E. coli- new culture - 01/17- Pseudomonas Sacral decub with possible underlying infection, osteomyelitis. Fungemia- repeat cultures negative x 48 hours Possible Aspiration PNA - Sacral decub has eschar with possible underlying osteomyelitis. Patient family refused surgical sacral debridement after seen by plastic surgery. Wound care and Dr. Smyth following. 12/31 Wound cx: ESBL E.coli -Garcia catheter changed 01/09/2018, Urine culture on 01/09 grew Pseudomonas pansensitive, -Status post ciprofloxacin and imipenem. Echocardiogram on 01/12, no vegetation. Ophthalmology has seen the patient, no fungal keratitis or fungal eye infection. - Repeat blood cultures still growing Xenia tropicalis, switched back to fluconazole per infectious disease. Still having fever, rechecked blood culture , repeat urinalysis still shows large leukocyte esterase and pyuria, leukocytosis increasing, CTT still in position with increased right-sided pleural effusion. - ID ff - Started on meropenem, and vancomycin. Continue Diflucan, once documented blood sterility, will continue fluconazole for at least 2 weeks whether oral or IV. Follow-up repeat blood culture. - FF up final urine cultures- 01/17- growing Pseudomonas - final s still pending - Blood cultures from 01/16 negative so far - tube feeding suctioned from trach- hold TF for now - wound care daily- per wound care team recommendations - check CXR - no significant change, KUB- no acute findings - DC garcia replaced 01/16- change to condom- d/w daughter- past report of urinary retention- if no UO- replace-d/w daughter - S/P extensive bedside debridement by Dr. Smyth today 01/20 Pulmo Acute on chronic respiratory failure status post tracheostomy- currently on 28% T piece Bilateral Pleural effusion, with healthcare associated pneumonia - Pigtail catheters in place- left chest tube was removed 01/19 - right pigtail catheter still in place pleural fluid cultures negative consistent with transudative effusion. bronchodilators, pulmonary toilet. pulmonary following. Repeat chest x-ray- unchanged - minimal secretions - trach care- Acute renal failure on top of chronic kidney disease HYpernatremia- improving HYperkalemia - resolved -creatinine stabilizing ff UO and BMP - continue on / NS- Acute Care Surgeon ff - Kidney ultrasound unremarkable. - continue free water - Nephrology ff - creatinine and Na trending down gradually - ff daily DM type 2 - A1C 9.6, BGs still high, - Levemir increased to 15 units twice a day on 01/17/2018, cont sliding scale insulin and adjust dose CHRONIC RESOLVED ISSUES: Scrotal Edema/ulcerations - seen by Urology: continue wcatheter as needed, scrotal elevation NSTEMI Echo 10/19: LV systolic function is moderately reduced, EF 40-45%. continue Coreg and statin. Anemia secondary to GI bleed- Status post EGD colonoscopy. GI has signed off, patient with healed rectal ulcers and hemorrhoids. Continue Pepcid. FEN Continue tube feeds-Glucerna 1.5 with goal rate 60ml/hr- restart tube feedings today- gradually GI prophylaxis- on Pepcid DVT prophylaxis-on coumadin- INR therapeutic 01/07 long discussion with patient's daughter - nursing home plan- she says it's difficult for them to take her home- working - SNF- no insurance- patient here cvisiting from [place] when this unfortunate event happened (5) Anemia Qualifiers: Anemia type: unspecified type Qualified Code(s): D64.9 - Anemia, unspecified
[2018-01-20 14:03] LABS: Baso % (Auto) 0.4 % (0.0-2.0); Eos # (Auto) 0.2 th/mm3 (0.0-0.4); Hematocrit 24.8 % (39.0-51.0); Hemoglobin 7.7 gm/dL (13.0-17.0); Lymph # (Auto) 3.2 th/mm3 (1.0-4.8); Lymph % (Auto) 28.3 % (9.0-44.0); Mean Corpuscular HGB Conc 31.2 % (32.0-36.0); Mean Corpuscular Hemoglobin 28.1 pg (27.0-34.0); Mean Corpuscular Volume 89.9 fL (80.0-100.0); Mean Platelet Volume 9.5 fL (7.0-11.0); Mono % (Auto) 8.6 % (0.0-8.0); Neut # (Auto) 6.8 th/mm3 (1.8-7.7); Neut % (Auto) 60.7 % (16.0-70.0); Platelet Count 399 th/mm3 (150-450); Red Blood Count 2.75 mil/mm3 (4.50-5.90); Red Cell Distribution Width 19.4 % (11.6-17.2); White Blood Count 11.2 th/mm3 (4.0-11.0)
--- NOTE | 2018-01-20 17:27 | P.PNWCN ---
Wound Care Nurse Consult Description: Patient seen earlier with Doctor Upton for follow up of wound to sacrum Communicated with: MAGDIEL cody and Doctor Upton Recommendation: Please follow orders written by Doctor Upton Wound/Pressure Injury - Patient Status Premedicated for Pain Prior to Dressing Change: No - Wound Sacrum Wound Staging: Unstageable Wound Assessment: Ongoing Wound Type: Pressure Injury Is This a Chronic Wound: Yes Requested from Provider a Wound Care Consult: No Length: 9.5 (cm) Width: 8 (cm) Depth: 0 (slough) Wound Bed Appearance: Necrotic, Stover, Red, Yellow Wound Bed Appearance: Wound bed presents with an island of ~70% dry loosely adherent black eschar, ~10 % yellow slough and ~20% red tissue Surrounding Tissue Appearance: Erythema Surrounding Tissue Temperature: Warm Drainage Description: Serosanguinous Drainage Amount: Scant Drainage Odor: No Odor Dressing Status: Changed Cleansing Solution: Saline Topical: Enzymatic Debridement Ointment Wound Packing Type: Gauze Pads Primary Dressing: Gauze Pad Cover Dressing: bordered gauze Wound Dressing Change Date: 01/20/18 Wound Margin Description: Wound margins are well defined Right Lower Leg Wound Assessment: Ongoing Wound Type: Traumatic Wound Length: 1.8 (cm) Width: 1.2 (cm) Depth: 0 (slough) Wound Bed Appearance: Stover, Yellow Wound Bed Appearance: Wound bed presents with ~60% yellow adherent slough and ~40% pink tissue. Wound bed is moist with scant active sanguinous drainage. Surrounding Tissue Appearance: Stover Surrounding Tissue Temperature: Warm Drainage Description: Sanguinous Drainage Amount: Scant Drainage Odor: No Odor Dressing Status: Changed Cleansing Solution: Saline Topical: Enzymatic Debridement Ointment Primary Dressing: Optifoam basic Cover Dressing: Gauze Roll/Wrap Tape Type: Cloth Wound Dressing Change Date: 01/20/18 Wound Margin Description: Well defined and open Right Ankle Wound Type: Traumatic Wound Length: 0.6 (cm) Width: 0.4 (cm) Depth: 0 (slough) Wound Bed Appearance: Stover, Yellow Wound Bed Appearance: Wound bed presents with ~80% yellow dry adherent slough and ~20% pink tissue Surrounding Tissue Appearance: Stover Surrounding Tissue Temperature: Warm Drainage Amount: None Drainage Odor: No Odor Dressing Status: Changed Cleansing Solution: Saline Topical: Enzymatic Debridement Ointment Primary Dressing: Optifoam basic Cover Dressing: Gauze Roll/Wrap Tape Type: Cloth Wound Dressing Change Date: 01/20/18 - Additional Information Patient seen earlier for follow up of sacral stage IV wound and other wounds to RLE noted above with Doctor Upton. Patient is has a trach and is non verbal but responds to commands from family member in the room by blinking eyes. Patient was turned to R side with the assistance of MAGDIEL cody.Bordered gauze to sacrum was removed, Vaseline gauze was then removed from wound bed to reveal wound. Wound bed presents initially with an island of ~70% black dry eschar that is now loosely adherent. Wound was cleansed with normal saline. Doctor Alexsandra performed bedside sharp debridement of eschar with scissor. Eschar was removed to reveal wound bed that now presents with an island of ~60% moist yellow slough, ~20% red non granulation tissue and ~10% black eschar.Wound was cleansed with normal saline. Applied pepito thick coverage of Santyl ointment to wound bed with saline moistened gauze pads that were loosely packed in wound bed. Skin barrier film was applied to periwound before covering wound with bordered gauze.Patient was positioned off bottom with pillow in place for support. Assessed wounds to R lateral lower extremity. Wound descriptions and measurements are noted above. R lateral ankle and R lateral lower leg wounds were cleansed with normal saline and patted dry. Pepito thick coverage of Santyl ointment was applied with cotton swab. Covered both wounds with Optifoam basic cut to fit over wound beds and secured dressings with rolled gauze and tape.
--- NOTE | 2018-01-20 18:33 | P.PNID ---
Subjective Remarks: more awake today and afebrile 2nd GNB is ESBL+ Kleb R CT still drains qiote a lot Antibiotics: diflucan meropenem vanco Lines: periferal Lines ok Past Medical History: reviewed Allergies/Adverse Reactions: Allergies No Known Allergies Allergy (Verified 12/25/17 11:22) Objective Vital Signs 01/19/18 20:00 01/19/18 20:51 01/19/18 22:00 Temperature 100.7 F H Pulse Rate 117 H 109 H Respiratory Rate 18 21 18 Blood Pressure 107/59 L Pulse Oximetry 99 99 01/20/18 00:00 01/20/18 02:00 01/20/18 04:00 Temperature 97.8 F 99.7 F H Pulse Rate 107 H 102 H 84 Respiratory Rate 18 18 Blood Pressure 119/70 102/50 L Pulse Oximetry 98 96 01/20/18 08:00 01/20/18 12:00 01/20/18 13:14 Temperature 99.3 F 98 F Pulse Rate 108 H 91 H 95 H Respiratory Rate 20 20 Blood Pressure 113/64 110/61 Pulse Oximetry 98 98 01/20/18 16:00 Temperature 98.5 F Pulse Rate 96 H Respiratory Rate 20 Blood Pressure 110/60 Pulse Oximetry 99 Intake & Output 01/19/18 01/20/18 01/20/18 18:59 06:59 18:59 Intake Total 2653 / 2653 1100 / 1100 1648 / 1648 Output Total 2442 / 2442 600 / 600 160 / 160 Balance 211 / 211 500 / 500 1488 / 1488 Weight 77.8 kg 77.8 kg Intake: IV 1350 / 1350 1100 / 1100 1350 / 1350 1/2 Normal Saline Inj 1,000 ML 1000 / 1000 1000 / 1000 1250 / 1250 @ 100 mls/hr IV.CONT .Q10H EDE Rx#:[id number] Merrem Inj 1,000 MG In NS Inj 100 / 100 100 / 100 100 / 100 100 ML @ 200 mls/hr IV.SIG Q12H EDE Rx#:[id number] Vancomycin Inj 1,000 MG In NS 250 / 250 Inj 250 ML @ 250 mls/hr IV.SIG Q24H EDE Rx#:[id number] Oral 0 / 0 Tube Feeding 920 / 920 98 / 98 Tube Irrigant 200 / 200 Water Bolus Amount 60 / 60 200 / 200 Other 123 / 123 Output: Urine 2300 / 2300 600 / 600 Stool / Emesis Chest Tube Drainage 140 / 140 160 / 160 Left 90 / 90 Right Mid-Axillary Chest 50 / 50 160 / 160 Other: Post Void Residual 300 # Voids 2 # Incontinent Voids 0 Date of Last Bowel Movement 01/19/18 01/19/18 01/20/18 # Bowel Movements 2 # Incontinent Bowel Movements 1 01/20/18 13:15 Blood - Peripheral Aerobic Blood Culture - Pending 01/20/18 13:15 Blood - Peripheral Anaerobic Blood Culture - Pending 01/20/18 13:20 Blood - Peripheral Aerobic Blood Culture - Pending 01/20/18 13:20 Blood - Peripheral Anaerobic Blood Culture - Pending 01/16/18 13:15 Blood - Peripheral Aerobic Blood Culture - Preliminary No growth in 4 days 01/16/18 13:15 Blood - Peripheral Anaerobic Blood Culture - Preliminary No growth in 4 days 01/16/18 13:05 Blood - Peripheral Aerobic Blood Culture - Preliminary No growth in 4 days 01/16/18 13:05 Blood - Peripheral Anaerobic Blood Culture - Preliminary No growth in 4 days 01/17/18 00:23 Catheterized Urine Urine Culture - Final Pseudomonas aeruginosa Escherichia coli ESBL positive 01/04/18 12:45 Fluid - Pleural fluid Acid Fast Bacilli Smear - Final No acid fast bacilli seen 01/04/18 12:45 Fluid - Pleural fluid Mycobacterial Culture - Preliminary No growth in 2 weeks Lab - Hematology Results 01/20/18 13:15 WBC 11.2 H RBC 2.75 L Hgb 7.7 L Hct 24.8 L MCV 89.9 MCH 28.1 MCHC 31.2 L RDW 19.4 H Plt Count 399 MPV 9.5 Neut % (Auto) 60.7 Lymph % (Auto) 28.3 Mills % (Auto) 8.6 H Eos % (Auto) 2.0 Baso % (Auto) 0.4 Neut # (Auto) 6.8 Lymph # (Auto) 3.2 Mills # (Auto) 1.0 H Eos # (Auto) 0.2 Baso # (Auto) 0.0 WBC Differential . Differential Comment Auto diff final Lab - Chemistry Results 01/18/18 01/18/18 01/18/18 18:16 22:04 23:46 Sodium Potassium Chloride Carbon Dioxide Anion Gap BUN Creatinine Estimated GFR POC Glucose 227 H 202 H 193 H Random Glucose Calcium Total Bilirubin AST ALT Alkaline Phosphatase Total Protein Albumin 01/19/18 01/19/18 01/19/18 05:57 07:28 07:55 Sodium 148 H Potassium 5.2 H Chloride 118 H Carbon Dioxide 21.3 Anion Gap 9 BUN 51 H Creatinine 1.58 H Estimated GFR 43 L POC Glucose 212 H 216 H Random Glucose 186 H Calcium 7.7 L Total Bilirubin AST ALT Alkaline Phosphatase Total Protein Albumin 01/19/18 01/19/18 01/20/18 08:52 13:42 06:50 Sodium 146 H Potassium 4.9 Chloride 118 H Carbon Dioxide 19.7 L Anion Gap 8 BUN 52 H Creatinine 1.59 H Estimated GFR 42 L POC Glucose 194 H 184 H Random Glucose 176 H Calcium 7.7 L Total Bilirubin 0.3 AST 73 H ALT 60 Alkaline Phosphatase 210 H Total Protein 7.1 Albumin 1.3 L 01/20/18 01/20/18 01/20/18 11:21 11:24 18:02 Sodium Potassium Chloride Carbon Dioxide Anion Gap BUN Creatinine Estimated GFR POC Glucose 219 H 201 H 194 H Random Glucose Calcium Total Bilirubin AST ALT Alkaline Phosphatase Total Protein Albumin Imaging: ITS Impressions Head MRI 01/02/18 00:00 CONCLUSION: 1. 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 2. Cerebral atrophy and chronic ischemic small vessel vasculopathy. Chest CT 01/03/18 00:00 CONCLUSION: 1. Large bilateral pleural effusions occupying more than half of the right and left hemithorax. Abdomen/Pelvis CT 01/13/18 00:00 CONCLUSION: 1. Small bilateral pleural effusions and basilar infiltrates with bilateral chest tubes in place. 2. No evidence of ascites or bowel dilatation. Abdomen/Bladder Ultrasound 01/15/18 00:00 CONCLUSION: 1. Negative renal sonogram. Abdomen X-Ray 01/19/18 00:00 CONCLUSION: Chest X-Ray 01/19/18 00:00 CONCLUSION: 1. No evidence of pneumothorax. 2. Scattered infiltrates consistent with mild pulmonary vascular congestion versus pneumonia. 3. Tiny bilateral pleural effusions. Physical Exam: GENERAL: Patient is 77 yo on Tpiece SKIN: Warm and dry. No rash HEAD: Normocephalic. EYES: No scleral icterus. No injection or drainage. NECK: Supple, trachea midline. + trach in place with large amount of drainage CARDIOVASCULAR: RRR. No murmurs, rubs, gallops RESPIRATORY: Breath sounds equal bilaterally. No accessory muscle use. R CT in place with serous drainage GASTROINTESTINAL: Abdomen soft, non-tender, nondistended. +PEG tube in place MUSCULOSKELETAL: No cyanosis, less prominent edema. GUl; garcia in place with yellow urine Neuro: Lethargic, but opens eyes to voice and tracks, not follows Assessment and Plan - Plan Sacral decub with possible underlying infection, osteomyelitis. Prior h/o ESBL E.coli on 10/24/2017. Possible HCAP GNR UTI ? ESBL given h/o ESBL. 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 Encephalopathy: strokes in hospital, optic neuritis on presentation. New issue: fungemia, C. tropicalis - persistent fungemia Persistent fever Gram negative UTI: PSAE and ESBL + Kleb Recs: cont Fluconazol repeat BC Once documented blood sterility will cont fluconazole at least 2 weeks MOnitoring parameters: CBC CMP transition to oral form when ready for dc fu repeat blood clx cont meropenem
--- NOTE | 2018-01-20 18:48 | P.PNNP ---
Subjective Interval history: Patient is on the vent., has eyes open, not responding. Physical Exam Vital signs: Vital Signs 01/19/18 20:00 01/19/18 20:51 01/19/18 22:00 Temperature 100.7 F H Pulse Rate 117 H 109 H Respiratory Rate 18 21 18 Blood Pressure 107/59 L Pulse Oximetry 99 99 01/20/18 00:00 01/20/18 02:00 01/20/18 04:00 Temperature 97.8 F 99.7 F H Pulse Rate 107 H 102 H 84 Respiratory Rate 18 18 Blood Pressure 119/70 102/50 L Pulse Oximetry 98 96 01/20/18 08:00 01/20/18 12:00 01/20/18 13:14 Temperature 99.3 F 98 F Pulse Rate 108 H 91 H 95 H Respiratory Rate 20 20 Blood Pressure 113/64 110/61 Pulse Oximetry 98 98 01/20/18 16:00 01/20/18 18:35 Temperature 98.5 F Pulse Rate 96 H 95 H Respiratory Rate 20 Blood Pressure 110/60 Pulse Oximetry 99 Intake & Output 01/19/18 01/20/18 01/20/18 18:59 06:59 18:59 Intake Total 2653 / 2653 1100 / 1100 1648 / 1648 Output Total 2442 / 2442 600 / 600 160 / 160 Balance 211 / 211 500 / 500 1488 / 1488 Weight 77.8 kg 77.8 kg Intake: IV 1350 / 1350 1100 / 1100 1350 / 1350 1/2 Normal Saline Inj 1,000 ML 1000 / 1000 1000 / 1000 1250 / 1250 @ 100 mls/hr IV.CONT .Q10H EDE Rx#:[id number] Merrem Inj 1,000 MG In NS Inj 100 / 100 100 / 100 100 / 100 100 ML @ 200 mls/hr IV.SIG Q12H EDE Rx#:[id number] Vancomycin Inj 1,000 MG In NS 250 / 250 Inj 250 ML @ 250 mls/hr IV.SIG Q24H EDE Rx#:[id number] Oral 0 / 0 Tube Feeding 920 / 920 98 / 98 Tube Irrigant 200 / 200 Water Bolus Amount 60 / 60 200 / 200 Other 123 / 123 Output: Urine 2300 / 2300 600 / 600 Stool 1 / 1 Emesis 1 / 1 Chest Tube Drainage 140 / 140 160 / 160 Left 90 / 90 Right Mid-Axillary Chest 50 / 50 160 / 160 Other: Post Void Residual 300 # Voids 2 # Incontinent Voids 0 Date of Last Bowel Movement 01/19/18 01/19/18 01/20/18 # Bowel Movements 2 # Incontinent Bowel Movements 1 Narrative: eyes open- made eye contact HEAD: Normocephalic. EYES: No scleral icterus. No injection or drainage. NECK: Supple, trachea midline. No JVD or lymphadenopathy. + trach CARDIOVASCULAR: Regular rate and rhythm RESPIRATORY: Breath sounds equal bilaterally, diminished at bases. No accessory muscle use. no rhonchis Right pigtail chest tube in place GASTROINTESTINAL: Abdomen soft, non-tender, nondistended. +PEG tube in place garcia in place Back- with sacral decubitus- eschar- debrided at bedside today 01/20- by Dr. Upton MUSCULOSKELETAL: No cyanosis, or edema. Neuro: eyes open - made eye contact - Urinary Catheter Management Straight Cath placed during this visit: yes Urethral indwelling: Yes Reason for continuing: Severe pressure ulcer/wound Insertion date: 01/09/18 Insertion time: 08:00 Indwelling Urethral Catheter Cath placed during this visit: yes, but has since been removed by the nurse Reason for continuing: Decision to DC catheter Insertion date: 01/11/18 Insertion time: 16:18 Removal date: 01/20/18 Removal time: 15:15 Assessment and Plan - Plan 1. Acute Kidney injury. 2. Respiratory failure. 3. Sepsis. 4. Anemia. 5. Encephalopathy. Patient has now again Acute kidney injury, Most likely due to ATN due to Hypotension and sepsis. Continue antibiotics. Creatinine is stable at 1.5 Sodium is now 146, continue IVF with 1/2 NS. Over all prognosis is guarded.
[2018-01-20] MEDS: Acetaminophen 325 MG Tablet PO PRN (21:24)
[2018-01-21] MEDS: Insulin NovoLIN Regular Correctional Sugar Inj SQ SCH ×5 (00:35→23:40)
[2018-01-21 08:48] LABS: INR 4.5 Ratio; Prothrombin Time 44.7 sec (9.8-11.6)
[2018-01-21] MEDS: Famotidine 20 MG Tablet PO SCH ×2 (10:28→22:38)
[2018-01-21] MEDS: Hydrocortisone Acetate 25 MG Supp RECTAL SCH ×2 (10:28→22:38)
[2018-01-21] MEDS: Polyethylene Glycol 3350 17 GM Packet PO SCH (10:31)
[2018-01-21] MEDS: Sodium Chloride 0.45 % Inj 1,000 ML IV.CONT SCH ×3 (10:32→16:38)
[2018-01-21] MEDS: Collagenase Oint 30 GM Tube TOPICAL SCH (10:38)
[2018-01-21] MEDS: Insulin Detemir Inj 1,000 UNIT/10 ML Vial SQ SCH ×2 (10:43→23:41)
--- NOTE | 2018-01-21 11:29 | P.PN ---
Subjective Interval history: having intermittent fever very caring and supportive family/daughter at bedside garcia replaced today- - trial voiding- no output- Physical Exam Vital signs: Vital Signs 01/20/18 12:00 01/20/18 13:14 01/20/18 16:00 Temperature 98 F 98.5 F Pulse Rate 91 H 95 H 96 H Respiratory Rate 20 20 Blood Pressure 110/61 110/60 Pulse Oximetry 98 99 01/20/18 18:35 01/20/18 20:00 01/20/18 20:49 Temperature 100.8 F H Pulse Rate 95 H 97 H Respiratory Rate 18 Blood Pressure 109/60 Pulse Oximetry 99 99 01/20/18 20:50 01/21/18 00:00 01/21/18 04:00 Temperature 100.4 F H 99.8 F H Pulse Rate 96 H 93 H 97 H Respiratory Rate 20 18 18 Blood Pressure 101/56 L 103/55 L Pulse Oximetry 99 97 01/21/18 08:00 01/21/18 08:08 01/21/18 10:55 Temperature 98.8 F 98.9 F Pulse Rate 95 H 95 H Respiratory Rate 20 19 Blood Pressure 100/57 L 101/64 Pulse Oximetry 97 95 Intake & Output 01/20/18 01/21/18 01/21/18 18:59 06:59 18:59 Intake Total 1648 / 1648 486 / 486 250 / 250 Output Total 160 / 160 730 / 730 Balance 1488 / 1488 -244 / -244 250 / 250 Weight 79.4 kg Intake: IV 1350 / 1350 100 / 100 250 / 250 1/2 Normal Saline Inj 1,000 ML 1250 / 1250 250 / 250 @ 100 mls/hr IV.CONT .Q10H EDE Rx#:[id number] Merrem Inj 1,000 MG In NS Inj 100 / 100 100 / 100 100 ML @ 200 mls/hr IV.SIG Q12H EDE Rx#:[id number] Tube Feeding 98 / 98 236 / 236 Water Bolus Amount 200 / 200 150 / 150 Output: Urine Amount (Catheter) 600 / 600 Straight 600 / 600 Chest Tube Drainage 160 / 160 130 / 130 Right Mid-Axillary Chest 160 / 160 130 / 130 Other: Date of Last Bowel Movement 01/20/18 01/20/18 Narrative: eyes open- made eye contact , appears to be more alert today- did track for me tracheostomy- 28% t piece HEAD: Normocephalic. EYES: No scleral icterus. No injection or drainage. NECK: Supple, trachea midline. No JVD or lymphadenopathy. + trach CARDIOVASCULAR: Regular rate and rhythm RESPIRATORY: Breath sounds equal bilaterally, diminished at bases. No accessory muscle use. no rhonchis Right pigtail chest tube in place GASTROINTESTINAL: Abdomen soft, non-tender, nondistended. +PEG tube in place garcia in place- placed 01/21 Back- with sacral decubitus- eschar- debrided at bedside 01/20- by Dr. Upton MUSCULOSKELETAL: No cyanosis, or edema. Neuro: eyes open - made eye contact - Urinary Catheter Management Straight Cath placed during this visit: yes Urethral indwelling: Yes Reason for continuing: Acute urinary retention Insertion date: 01/21/18 Insertion time: 08:00 Indwelling Urethral Catheter Urethral indwelling: Yes Reason for continuing: Not indwelling catheter Insertion date: 01/21/18 Insertion time: 16:18 Removal date: 01/20/18 Removal time: 15:15 Results - Labs CBC & Chem 7: 01/22/18 08:41 01/22/18 08:41 Laboratory Results - last 24 hr 01/20/18 01/20/18 01/20/18 11:21 11:24 13:15 WBC 11.2 H RBC 2.75 L Hgb 7.7 L Hct 24.8 L MCV 89.9 MCH 28.1 MCHC 31.2 L RDW 19.4 H Plt Count 399 MPV 9.5 Neut % (Auto) 60.7 Lymph % (Auto) 28.3 [place] % (Auto) 8.6 H Eos % (Auto) 2.0 Baso % (Auto) 0.4 Neut # (Auto) 6.8 Lymph # (Auto) 3.2 [place] # (Auto) 1.0 H Eos # (Auto) 0.2 Baso # (Auto) 0.0 WBC Differential . Differential Comment Auto diff final PT INR POC Glucose 219 H 201 H 01/20/18 01/21/18 01/21/18 18:02 00:27 06:23 WBC RBC Hgb Hct MCV MCH MCHC RDW Plt Count MPV Neut % (Auto) Lymph % (Auto) [place] % (Auto) Eos % (Auto) Baso % (Auto) Neut # (Auto) Lymph # (Auto) [place] # (Auto) Eos # (Auto) Baso # (Auto) WBC Differential Differential Comment PT INR POC Glucose 194 H 156 H 128 H 01/21/18 01/21/18 08:13 10:34 WBC RBC Hgb Hct MCV MCH MCHC RDW Plt Count MPV Neut % (Auto) Lymph % (Auto) [place] % (Auto) Eos % (Auto) Baso % (Auto) Neut # (Auto) Lymph # (Auto) [place] # (Auto) Eos # (Auto) Baso # (Auto) WBC Differential Differential Comment PT 44.7 H D INR 4.5 POC Glucose 124 H Microbiology 01/20/18 13:15 Blood - Peripheral Aerobic Blood Culture - Preliminary No growth in 1 day 01/20/18 13:15 Blood - Peripheral Anaerobic Blood Culture - Preliminary No growth in 1 day 01/20/18 13:20 Blood - Peripheral Aerobic Blood Culture - Preliminary No growth in 1 day 01/20/18 13:20 Blood - Peripheral Anaerobic Blood Culture - Preliminary No growth in 1 day 01/16/18 13:15 Blood - Peripheral Aerobic Blood Culture - Final No growth in 5 days 01/16/18 13:15 Blood - Peripheral Anaerobic Blood Culture - Final No growth in 5 days 01/16/18 13:05 Blood - Peripheral Aerobic Blood Culture - Final No growth in 5 days 01/16/18 13:05 Blood - Peripheral Anaerobic Blood Culture - Final No growth in 5 days 01/17/18 00:23 Catheterized Urine Urine Culture - Final Pseudomonas aeruginosa Escherichia coli ESBL positive Assessment and Plan - Assessment (1) Encephalopathy Code(s): G93.40 - Encephalopathy, unspecified Status: Acute (2) CVA (cerebral vascular accident) Code(s): I63.9 - Cerebral infarction, unspecified Status: Acute (3) Wound of sacral region Code(s): S31.000A - Unspecified open wound of lower back and pelvis without penetration into retroperitoneum, initial encounter Status: Acute (4) NSTEMI (non-ST elevated myocardial infarction) Code(s): I21.4 - Non-ST elevation (NSTEMI) myocardial infarction Status: Resolved (5) Anemia Code(s): D64.9 - Anemia, unspecified Status: Acute (6) Respiratory failure with hypoxia and hypercapnia Code(s): J96.91 - Respiratory failure, unspecified with hypoxia; J96.92 - Respiratory failure, unspecified with hypercapnia Status: Resolved (7) Optic neuritis Code(s): H46.9 - Unspecified optic neuritis Status: Resolved - Plan This is a 77-year-old male who initially presented with vision changes with concern for optic neuritis versus temporal arteritis. Hospital course complicated by NSTEMI, E. coli urinary tract infection, rectal bleeding with acute anemia. He became lethargic, admitted to the intensive care unit and found to have CVA. CTA head and neck revealed atherosclerotic disease. After giving TPA, the patient had tonic-clonic seizure and became obtunded with acute hypoxic and hypercarbic respiratory failure, intubated. Patient was then transferred to the hospitalist service when patient was more stable. 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 Repeat MRI unchanged. Patient also had seizures, EEG showed diffuse encephalopathy. -Continue Coumadin, statin, Ritalin. After discussion patient's daughter, she would like to try to get the patient off Keppra and hopefully will improve his mental status. She is aware that there is risk for seizures. Follow while off Keppra. Neuropsychology following. Was on steroids for optic neuritis. Encephalopathy persists, no change in mental status, family continues to be aggressive in goals ID REcurrent fever - spiked again Recurrent UTI-prior history of ESBL E. coli- new culture - 01/17- Pseudomonas Sacral decub with possible underlying infection, osteomyelitis. Fungemia- repeat cultures negative x 48 hours Possible Aspiration PNA - Sacral decub has eschar with possible underlying osteomyelitis. Patient family refused surgical sacral debridement after seen by plastic surgery. Wound care and Dr. Upton following. 12/31 Wound cx: ESBL E.coli -Garcia catheter changed 01/09/2018, Urine culture on 01/09 grew Pseudomonas pansensitive, -Status post ciprofloxacin and imipenem. Echocardiogram on 01/12, no vegetation. Ophthalmology has seen the patient, no fungal keratitis or fungal eye infection. - Repeat blood cultures still growing Xenia tropicalis, switched back to fluconazole per infectious disease. Still having fever, rechecked blood culture , repeat urinalysis still shows large leukocyte esterase and pyuria, leukocytosis increasing, CTT still in position with increased right-sided pleural effusion. - ID ff - Started on meropenem, and vancomycin. Continue Diflucan, once documented blood sterility, will continue fluconazole for at least 2 weeks whether oral or IV. Follow-up repeat blood culture. - FF up final urine cultures- 01/17- growing Pseudomonas - final s still pending - Blood cultures from 01/16 negative so far - restarted TF- tolerating well - wound care daily- per wound care team recommendations- S/P extensive bedside debridement 01/[address] Salazar - check CXR - no significant change, KUB- no acute findings Acute on chronic respiratory failure status post tracheostomy- currently on 28% T piece Bilateral Pleural effusion, with healthcare associated pneumonia - Pigtail catheters in place- left chest tube was removed 01/19 - right pigtail catheter still in place pleural fluid cultures negative consistent with transudative effusion. bronchodilators, pulmonary toilet. pulmonary following. Repeat chest x-ray- unchanged - minimal secretions - trach care- Acute renal failure on top of chronic kidney disease HYpernatremia- improving HYperkalemia - resolved -creatinine stabilizing ff UO and BMP - continue on 06/29 NS- Set Key Driver ff - Kidney ultrasound unremarkable. - continue free water - Nephrology ff - creatinine and Na trending down gradually - ff daily Urinary retention - garcia placed 01/21 DM type 2 - A1C 9.6, BGs still high, - Levemir increased to 15 units twice a day on 01/17/2018, cont sliding scale insulin and adjust dose CHRONIC RESOLVED ISSUES: Scrotal Edema/ulcerations - seen by Urology: continue wcatheter as needed, scrotal elevation NSTEMI Echo 10/19: LV systolic function is moderately reduced, EF 40-45%. continue Coreg and statin. Anemia secondary to GI bleed- Status post EGD colonoscopy. GI has signed off, patient with healed rectal ulcers and hemorrhoids. Continue Pepcid. FEN Continue tube feeds-Glucerna 1.5 with goal rate 60ml/hr- restarted tube feedings add camille powder packet bid GI prophylaxis- on Pepcid DVT prophylaxis-on coumadin- INR therapeutic- 4.0 today- hold coumadin 01/07 long discussion with patient's daughter - care home plan- she says it's difficult for them to take her home- working - SNF- no insurance- patient here visiting from [place] when this unfortunate event happened (5) Anemia Qualifiers: Anemia type: unspecified type Qualified Code(s): D64.9 - Anemia, unspecified
[2018-01-21] MEDS: Methylphenidate HCl 5 MG Tablet PO SCH (12:46)
[2018-01-21 14:32] LABS: Baso # (Auto) 0.1 th/mm3 (0.0-0.2); Baso % (Auto) 0.6 % (0.0-2.0); Eos # (Auto) 0.3 th/mm3 (0.0-0.4); Eos % (Auto) 2.9 % (0.0-4.0); Hemoglobin 7.8 gm/dL (13.0-17.0); Mean Corpuscular HGB Conc 31.1 % (32.0-36.0); Mean Corpuscular Hemoglobin 29.7 pg (27.0-34.0); Mean Corpuscular Volume 95.5 fL (80.0-100.0); Mean Platelet Volume 9.4 fL (7.0-11.0); Mono # (Auto) 0.9 th/mm3 (0.0-0.9); Mono % (Auto) 8.5 % (0.0-8.0); Neut # (Auto) 5.5 th/mm3 (1.8-7.7); Platelet Count 389 th/mm3 (150-450); Red Blood Count 2.62 mil/mm3 (4.50-5.90); Red Cell Distribution Width 20.1 % (11.6-17.2); White Blood Count 10.7 th/mm3 (4.0-11.0)
--- NOTE | 2018-01-21 16:41 | P.DIET ---
Nutritional Evaluation Type of nutrition evaluation: follow-up Nutrition consult regarding: Tube Feeding Nutrition screening: Pressure Injury Screening comments: 01/05 WOCN note: Sacral wound unstageable-please see note in EMR Objective - Diagnosis Optic Neuritis - Objective % IBW: 114 (ODG=135#) Body Weight Used for Calculations: Actual (79.6kg) Energy Needs - Lower Range (kCal/kg): 30 Energy Needs - Upper Range (kCal/kg): 35 Lower Limit kCal/kg (kCals): 2,388 Upper Limit kCal/kg (kCals): 2,786 Lower Limit Protein Factor (Grams per Kg): 1.3 Upper Limit Protein Factor (Grams per Kg): 1.6 Lower Protein Needs (Protein): 103 Upper Protein Needs (Protein): 127 Fluid Factor (ml/kg): 30 Estimated Fluid Needs (ml): 2,388 Dietitian Reviewed in Medical Record: Curent medications, Intake & Output, Labs , Tube feeding, Wound/DTI Diet Order: TF Only Wound Care Note: Sacrum: Unstageable Scrotum & R Calf: Maceration Objective Comments: Meds: Crystal Mueller Reglan 01/13 bilateral chest tubes placed LBM 01/20 CBW = 79.4 kg Feeding - Current Tube Feeding Tube Feeding Product: Glucerna 1.5 Tube Feeding Method: Pump Tube Feeding Rate: 30 Tube Feeding Route: gastrostomy Assessment Assessment: Pt remains on TFing as described above. Order is for 60mls/hr. Recommend increasing TF to 65mls/hr to provide 2340kcals, 129g PRO, and 1184mls fluid. Recommend 200ml water flush Q 6hrs and monitor hydration. For wound healing, recommend Sharif powder BID through PEG. This must be ordered via the MAR. TF rate does not necessarily have to be adjusted for elevated residuals unless the pt is showing signs of intolerance, ie: vomiting, distension, diarrhea, etc. Previously discussed all recommendations w/ RN. Recommendations: 1. Recommend Glucerna 1.5 @ 65mls/hr x 24hrs. 2. Recommend 200ml water flushes Q 6hrs and monitor hydration. 3. Recommend Sharif powder BID through PEG tube for wound healing. 4. TF does not necessarily need to be adjusted for high residuals unless signs of intolerance are also present. Dietitian to Monitor: Lab values, Glucose level, Intake & Output, Tube feeding tolerance, Weight change, Residuals, Wound/skin status, Medical course
--- NOTE | 2018-01-21 18:55 | P.PNNP ---
Subjective Interval history: Patient seen in AM, remain on the vent. eyes open, not following. Physical Exam Vital signs: Vital Signs 01/20/18 20:00 01/20/18 20:49 01/20/18 20:50 Temperature 100.8 F H Pulse Rate 97 H 96 H Respiratory Rate 18 20 Blood Pressure 109/60 Pulse Oximetry 99 99 01/21/18 00:00 01/21/18 04:00 01/21/18 08:00 Temperature 100.4 F H 99.8 F H 98.8 F Pulse Rate 93 H 97 H 93 H Respiratory Rate 18 18 20 Blood Pressure 101/56 L 103/55 L 100/57 L Pulse Oximetry 99 97 97 01/21/18 08:05 01/21/18 08:08 01/21/18 10:55 Temperature 98.9 F Pulse Rate 93 H 95 H Respiratory Rate 19 Blood Pressure 101/64 Pulse Oximetry 95 01/21/18 12:00 01/21/18 12:55 01/21/18 15:02 Temperature 100 F H 99.1 F Pulse Rate 92 H 91 H 91 H Respiratory Rate 19 20 Blood Pressure 85/59 L 99/61 L Pulse Oximetry 99 98 01/21/18 16:00 Temperature 98.3 F Pulse Rate 91 H Respiratory Rate 16 Blood Pressure 103/56 L Pulse Oximetry 98 Intake & Output 01/20/18 01/21/18 01/21/18 18:59 06:59 18:59 Intake Total 1648 / 1648 486 / 486 1387 / 1387 Output Total 160 / 160 730 / 730 750 / 750 Balance 1488 / 1488 -244 / -244 637 / 637 Weight 79.4 kg Intake: IV 1350 / 1350 100 / 100 1050 / 1050 1/2 Normal Saline Inj 1,000 ML 1250 / 1250 750 / 750 @ 100 mls/hr IV.CONT .Q10H EDE Rx#:[id number] Diflucan 400 mg Premix Bag 200 200 / 200 ML @ 100 mls/hr IV.SIG Q24H EDE Rx#:[id number] Merrem Inj 1,000 MG In NS Inj 100 / 100 100 / 100 100 / 100 100 ML @ 200 mls/hr IV.SIG Q12H EDE Rx#:[id number] Tube Feeding 98 / 98 236 / 236 187 / 187 Water Bolus Amount 200 / 200 150 / 150 150 / 150 Output: Urine 400 / 400 Urine Amount (Catheter) 600 / 600 Straight 600 / 600 Chest Tube Drainage 160 / 160 130 / 130 350 / 350 Right Mid-Axillary Chest 160 / 160 130 / 130 350 / 350 Other: Date of Last Bowel Movement 01/20/18 01/20/18 01/20/18 Narrative: eyes open- made eye contact , appears to be more alert today- did track for ok tracheostomy- 28% t piece HEAD: Normocephalic. EYES: No scleral icterus. No injection or drainage. NECK: Supple, trachea midline. No JVD or lymphadenopathy. + trach CARDIOVASCULAR: Regular rate and rhythm RESPIRATORY: Breath sounds equal bilaterally, diminished at bases. No accessory muscle use. no rhonchis Right pigtail chest tube in place GASTROINTESTINAL: Abdomen soft, non-tender, nondistended. +PEG tube in place garcia in place- placed 01/21 Back- with sacral decubitus- eschar- debrided at bedside 01/20- by Dr. Upton MUSCULOSKELETAL: No cyanosis, or edema. Neuro: eyes open - made eye contact - Urinary Catheter Management Straight Cath placed during this visit: yes Urethral indwelling: Yes Reason for continuing: Not indwelling catheter Insertion date: 01/09/18 Insertion time: 08:00 Indwelling Urethral Catheter Cath placed during this visit: yes, but has since been removed by the nurse Reason for continuing: Not indwelling catheter Insertion date: 01/21/18 Insertion time: 16:18 Removal date: 01/20/18 Removal time: 15:15 Assessment and Plan - Plan 1. Acute Kidney injury. 2. Respiratory failure. 3. Sepsis. 4. Anemia. 5. Encephalopathy. Patient has now again Acute kidney injury, Most likely due to ATN due to Hypotension and sepsis. Continue antibiotics. Creatinine was stable at 1.5 No new BMP, continue IVF with 1/2 NS. Over all prognosis is guarded. D/W the daughter at bed side.
--- NOTE | 2018-01-22 04:45 | XR ---
EXAM DATE: 01/22/2018 4:14 AM EDT AGE/SEX: 77 years / Male INDICATIONS: Shortness of breath, infiltrate. CLINICAL DATA: This is the patient's subsequent encounter. Patient reports that signs and symptoms h ave been present for 4 - 6 months and indicates a pain score of Nonresponsive. MEDICAL/SURGICAL HISTORY: . Hypertension. Diabetes mellitus type II. . Coronary artery stent. COMPARISON: [facility] – [place], CHEST 1V SINGLE AP, 01/19/2018. . FINDINGS: Stable tracheostomy. Stable right-sided pigtail chest tube. Left-sided chest tube is not demonstrated . Persistent patchy bilateral lower lung zone airspace disease and likely trace left pleural effusion . Cardiomediastinal contours are stable. Remainder of the exam is unchanged. CONCLUSION: 1. Apparent interval removal of left-sided chest tube. 2. Stable right-sided chest tube. 3. Stable bilateral lower lung zone patchy airspace disease and trace left pleural effusion. Electronically signed by: Coleman Alfaro MD 01/22/2018 4:44 AM EDT
[2018-01-22] MEDS: Acetaminophen 325 MG Tablet PO PRN ×2 (05:30→12:26)
[2018-01-22] MEDS: Insulin NovoLIN Regular Correctional Sugar Inj SQ SCH ×4 (06:51→23:58)
[2018-01-22] MEDS: Famotidine 20 MG Tablet PO SCH ×2 (08:21→20:55)
[2018-01-22] MEDS: Insulin Detemir Inj 1,000 UNIT/10 ML Vial SQ SCH ×2 (08:22→20:58)
[2018-01-22] MEDS: Hydrocortisone Acetate 25 MG Supp RECTAL SCH ×2 (08:22→20:59)
[2018-01-22] MEDS: Polyethylene Glycol 3350 17 GM Packet PO SCH (08:22)
[2018-01-22 09:09] LABS: Hematocrit 26.1 % (39.0-51.0); Hemoglobin 8.3 gm/dL (13.0-17.0)
[2018-01-22 09:12] LABS: INR 3.5 Ratio
[2018-01-22 09:35] LABS: Albumin 1.2 g/dL (3.4-5.0); Anion Gap 8 meq/L (5-15); Aspartate Aminotransferase 125 U/L (15-37); Blood Urea Nitrogen 53 mg/dL (7-18); Calcium 7.6 mg/dL (8.5-10.1); Carbon Dioxide 21.1 meq/L (21.0-32.0); Chloride 120 meq/L (98-107); Glomerular Filtration Rate 44 mL/min (>89); Glucose,Random 169 mg/dL (74-106); Potassium 4.7 meq/L (3.5-5.1); Sodium 149 meq/L (136-145)
[2018-01-22 09:40] LABS: Alanine Aminotransferase 73 U/L (12-78); Alkaline Phosphatase 222 U/L (45-117); Total Protein 6.7 g/dL (6.4-8.2)
--- NOTE | 2018-01-22 10:54 | P.PNADD ---
Addendum to Inpatient Note Additional information: Pt was seen and examined Full note to follow
[2018-01-22] MEDS: Collagenase Oint 30 GM Tube TOPICAL SCH (11:01)
[2018-01-22] MEDS: Sodium Chloride 0.45 % Inj 1,000 ML IV.CONT SCH ×2 (12:29→18:38)
--- NOTE | 2018-01-22 13:48 | P.PNPL ---
Subjective Interval history: Patient is 77 yo with chronic resp failure s/p trach on TP's with 28% FIO2. Afebrile. Physical Exam Vital signs: Vital Signs 01/21/18 15:02 01/21/18 16:00 01/21/18 20:00 Temperature 99.1 F 98.3 F 98.6 F Pulse Rate 91 H 91 H 91 H Respiratory Rate 20 16 18 Blood Pressure 99/61 L 103/56 L 101/56 L Pulse Oximetry 98 98 96 01/21/18 20:20 01/21/18 20:21 01/22/18 00:00 Temperature 99.3 F Pulse Rate 91 H 97 H Respiratory Rate 18 18 Blood Pressure 100/59 L Pulse Oximetry 97 96 01/22/18 01:05 01/22/18 04:00 01/22/18 08:20 Temperature 100.8 F H Pulse Rate 99 H Respiratory Rate 18 Blood Pressure 100/59 L Pulse Oximetry 96 95 96 01/22/18 08:34 01/22/18 10:42 01/22/18 12:57 Temperature 99.2 F 99.8 F H Pulse Rate 102 H 106 H 106 H Respiratory Rate 19 18 16 Blood Pressure 102/60 113/68 Pulse Oximetry 95 96 96 Intake & Output 01/21/18 01/22/18 01/22/18 18:59 06:59 18:59 Intake Total 1387 / 1387 800 / 800 1000 / 1000 Output Total 750 / 750 774 / 774 Balance 637 / 637 26 / 26 1000 / 1000 Weight 78.9 kg Intake: IV 1050 / 1050 100 / 100 1000 / 1000 1/2 Normal Saline Inj 1,000 ML 750 / 750 1000 / 1000 @ 60 mls/hr IV.CONT .[id number] EDE Rx#:[id number] Diflucan 400 mg Premix Bag 200 200 / 200 ML @ 100 mls/hr IV.SIG Q24H EDE Rx#:[id number] Merrem Inj 1,000 MG In NS Inj 100 / 100 100 / 100 100 ML @ 200 mls/hr IV.SIG Q12H EDE Rx#:[id number] Tube Feeding 187 / 187 700 / 700 Water Bolus Amount 150 / 150 Output: Urine 400 / 400 Urine Amount (Catheter) 750 / 750 Indwelling Urethral Catheter 750 / 750 Chest Tube Drainage 350 / 350 24 / 24 Right Mid-Axillary Chest 350 / 350 24 / 24 Other: Date of Last Bowel Movement 01/20/18 01/21/18 01/21/18 - Constitutional no acute distress - Routine HEENT Exam Head: Present: normocephalic, atraumatic Eye: Present: EOMI, PERRL, conjunctivae pink - Routine Neck Exam Present: supple, full ROM, trachea midline - Routine Respiratory Exam Present: CTA bilaterally - Routine Cardiovascular Exam Present: RRR, S1, S2 - Routine Abdominal Exam Present: soft, normoactive bowel sounds - Routine Extremities Exam Present: pulses intact - Routine Skin Exam Present: intact - Routine Neurological Exam Present: altered mental status - Routine Psychiatric Exam Present: unable to assess - Urinary Catheter Management Straight Cath placed during this visit: yes Urethral indwelling: Yes Reason for continuing: Acute urinary retention Insertion date: 01/21/18 Insertion time: 08:00 Indwelling Urethral Catheter Cath placed during this visit: yes, but has since been removed by the nurse Urethral indwelling: Yes Reason for continuing: Not indwelling catheter Insertion date: 01/21/18 Insertion time: 16:18 Removal date: 01/20/18 Removal time: 15:15 Assessment and Plan - Plan 1)Chronic resp failure 2)s/p trach and PEG tube placement 3)Encephalopathy 4)CVA 5)Anemia 6)CAD/NSTEMI 7)Wound of sacral region 8)Optic neuritis 9)Fungemia 10UTI- E.coli ESBL, Pseudomonas Plan Continue with TP's keep sats >92% Bronchodilators Pulm toilet, trach care s/p removal of left CT, right CT in place monitor drainage Abx per ID( Merrem, Diflucan)monitor for signs of infections ( fever, WBC) Check CXR today-b/L lower lung zone airspace disease, trace left pleural effusion Monitor CBC, INR on Coumadin with INR 3.5 today Continue treatment plan.
--- NOTE | 2018-01-22 14:14 | XR ---
EXAM DATE: 01/22/2018 2:07 PM EDT AGE/SEX: 77 years / Male INDICATIONS: Respiratory failure. CLINICAL DATA: This is the patient's subsequent encounter. Patient reports that signs and symptoms h ave been present for 4 - 6 months and indicates a pain score of Nonresponsive. MEDICAL/SURGICAL HISTORY: . Hypertension. Diabetes mellitus type II. . Coronary artery stent . Right chest tube. COMPARISON: [facility] – [place], CHEST 1V SINGLE AP, 01/22/2018. . FINDINGS: Tracheostomy tube is present in satisfactory position. Right chest tube is in place. No definite pne umothorax is seen for technique. Interstitial process most likely pulmonary edema has not changed. Fo robby consolidation is not seen. CONCLUSION: No significant change. Electronically signed by: Jolene Neal MD 01/22/2018 2:13 PM EDT
--- NOTE | 2018-01-22 14:33 | P.PN ---
Subjective Interval history: seen with supporitve and loving daughter at bedside eyes open- to call of his name Mr. Glynn is tolerating tube feedings puting out adequate urine still with low grade fever secretions- moderate on suctioning Physical Exam Vital signs: Vital Signs 01/21/18 15:02 01/21/18 16:00 01/21/18 20:00 Temperature 99.1 F 98.3 F 98.6 F Pulse Rate 91 H 91 H 91 H Respiratory Rate 20 16 18 Blood Pressure 99/61 L 103/56 L 101/56 L Pulse Oximetry 98 98 96 01/21/18 20:20 01/21/18 20:21 01/22/18 00:00 Temperature 99.3 F Pulse Rate 91 H 97 H Respiratory Rate 18 18 Blood Pressure 100/59 L Pulse Oximetry 97 96 01/22/18 01:05 01/22/18 04:00 01/22/18 08:20 Temperature 100.8 F H Pulse Rate 99 H Respiratory Rate 18 Blood Pressure 100/59 L Pulse Oximetry 96 95 96 01/22/18 08:34 01/22/18 10:42 01/22/18 12:57 Temperature 99.2 F 99.8 F H Pulse Rate 102 H 106 H 106 H Respiratory Rate 19 18 16 Blood Pressure 102/60 113/68 Pulse Oximetry 95 96 96 Intake & Output 01/21/18 01/22/18 01/22/18 18:59 06:59 18:59 Intake Total 1387 / 1387 800 / 800 1000 / 1000 Output Total 750 / 750 774 / 774 Balance 637 / 637 26 / 26 1000 / 1000 Weight 78.9 kg Intake: IV 1050 / 1050 100 / 100 1000 / 1000 1/2 Normal Saline Inj 1,000 ML 750 / 750 1000 / 1000 @ 60 mls/hr IV.CONT .[id number] EDE Rx#:[id number] Diflucan 400 mg Premix Bag 200 200 / 200 ML @ 100 mls/hr IV.SIG Q24H EDE Rx#:[id number] Merrem Inj 1,000 MG In NS Inj 100 / 100 100 / 100 100 ML @ 200 mls/hr IV.SIG Q12H EDE Rx#:[id number] Tube Feeding 187 / 187 700 / 700 Water Bolus Amount 150 / 150 Output: Urine 400 / 400 Urine Amount (Catheter) 750 / 750 Indwelling Urethral Catheter 750 / 750 Chest Tube Drainage 350 / 350 Right Mid-Axillary Chest 350 / 350 Other: Date of Last Bowel Movement 01/20/18 01/21/18 01/21/18 Narrative: no acute distress, opened eyes to call of name but less interactive compared to yesterday's exam tracheostomy- 28% t piece HEAD: Normocephalic. EYES: No scleral icterus. No injection or drainage. NECK: Supple, trachea midline. No JVD or lymphadenopathy. + trach CARDIOVASCULAR: Regular rate and rhythm RESPIRATORY: Breath sounds equal bilaterally, diminished at bases. No accessory muscle use. no rhonchis Right pigtail chest tube in place GASTROINTESTINAL: Abdomen soft, non-tender, nondistended. +PEG tube in place garcia in place- placed 01/21 Back- with sacral decubitus- eschar- debrided at bedside 01/20- by Dr. Upton MUSCULOSKELETAL: No cyanosis, or edema. Neuro: status- unchanged - Urinary Catheter Management Straight Cath placed during this visit: yes Urethral indwelling: Yes Reason for continuing: Acute urinary retention Insertion date: 01/21/18 Insertion time: 08:00 Indwelling Urethral Catheter Cath placed during this visit: yes, but has since been removed by the nurse Urethral indwelling: Yes Reason for continuing: Not indwelling catheter Insertion date: 01/21/18 Insertion time: 16:18 Removal date: 01/20/18 Removal time: 15:15 Results - Labs CBC & Chem 7: 01/22/18 08:41 01/22/18 08:41 Laboratory Results - last 24 hr 01/21/18 01/21/18 01/21/18 14:15 16:38 23:33 WBC 10.7 RBC 2.62 L Hgb 7.8 L Hct 25.0 L MCV 95.5 D MCH 29.7 MCHC 31.1 L RDW 20.1 H Plt Count 389 MPV 9.4 Neut % (Auto) 51.0 Lymph % (Auto) 37.0 [place] % (Auto) 8.5 H Eos % (Auto) 2.9 Baso % (Auto) 0.6 Neut # (Auto) 5.5 Lymph # (Auto) 4.0 [place] # (Auto) 0.9 Eos # (Auto) 0.3 Baso # (Auto) 0.1 WBC Differential . Differential Comment Auto diff final Hematology Comments PT INR Sodium Potassium Chloride Carbon Dioxide Anion Gap BUN Creatinine Estimated GFR POC Glucose 118 H 156 H Random Glucose Calcium Total Bilirubin AST ALT Alkaline Phosphatase Total Protein Albumin 01/22/18 01/22/18 01/22/18 06:45 08:18 08:41 WBC RBC Hgb Hct MCV MCH MCHC RDW Plt Count MPV Neut % (Auto) Lymph % (Auto) [place] % (Auto) Eos % (Auto) Baso % (Auto) Neut # (Auto) Lymph # (Auto) [place] # (Auto) Eos # (Auto) Baso # (Auto) WBC Differential Differential Comment Hematology Comments PT 35.0 H INR 3.5 Sodium Potassium Chloride Carbon Dioxide Anion Gap BUN Creatinine Estimated GFR POC Glucose 180 H 197 H Random Glucose Calcium Total Bilirubin AST ALT Alkaline Phosphatase Total Protein Albumin 01/22/18 01/22/18 01/22/18 08:41 08:41 12:16 WBC RBC Hgb 8.3 L Hct 26.1 L MCV MCH MCHC RDW Plt Count MPV Neut % (Auto) Lymph % (Auto) [place] % (Auto) Eos % (Auto) Baso % (Auto) Neut # (Auto) Lymph # (Auto) [place] # (Auto) Eos # (Auto) Baso # (Auto) WBC Differential Differential Comment Hematology Comments PT INR Sodium 149 H Potassium 4.7 Chloride 120 H Carbon Dioxide 21.1 Anion Gap 8 BUN 53 H Creatinine 1.55 H Estimated GFR 44 L POC Glucose 207 H Random Glucose 169 H Calcium 7.6 L Total Bilirubin 0.3 AST 125 H ALT 73 Alkaline Phosphatase 222 H Total Protein 6.7 Albumin 1.2 L Microbiology 01/20/18 13:15 Blood - Peripheral Aerobic Blood Culture - Preliminary No growth in 2 days 01/20/18 13:15 Blood - Peripheral Anaerobic Blood Culture - Preliminary No growth in 2 days 01/20/18 13:20 Blood - Peripheral Aerobic Blood Culture - Preliminary No growth in 2 days 01/20/18 13:20 Blood - Peripheral Anaerobic Blood Culture - Preliminary No growth in 2 days 01/16/18 13:15 Blood - Peripheral Aerobic Blood Culture - Final No growth in 5 days 01/16/18 13:15 Blood - Peripheral Anaerobic Blood Culture - Final No growth in 5 days 01/16/18 13:05 Blood - Peripheral Aerobic Blood Culture - Final No growth in 5 days 01/16/18 13:05 Blood - Peripheral Anaerobic Blood Culture - Final No growth in 5 days - Imaging Impressions Chest X-Ray 01/22/18 00:00 CONCLUSION: No significant change. Chest X-Ray 01/22/18 06:00 CONCLUSION: 1. Apparent interval removal of left-sided chest tube. 2. Stable right-sided chest tube. 3. Stable bilateral lower lung zone patchy airspace disease and trace left pleural effusion. Assessment and Plan - Assessment (1) Encephalopathy Code(s): G93.40 - Encephalopathy, unspecified Status: Acute (2) CVA (cerebral vascular accident) Code(s): I63.9 - Cerebral infarction, unspecified Status: Acute (3) Wound of sacral region Code(s): S31.000A - Unspecified open wound of lower back and pelvis without penetration into retroperitoneum, initial encounter Status: Acute (4) NSTEMI (non-ST elevated myocardial infarction) Code(s): I21.4 - Non-ST elevation (NSTEMI) myocardial infarction Status: Resolved (5) Anemia Code(s): D64.9 - Anemia, unspecified Status: Acute (6) Respiratory failure with hypoxia and hypercapnia Code(s): J96.91 - Respiratory failure, unspecified with hypoxia; J96.92 - Respiratory failure, unspecified with hypercapnia Status: Resolved (7) Optic neuritis Code(s): H46.9 - Unspecified optic neuritis Status: Resolved - Plan This is a 77-year-old male who initially presented with vision changes with concern for optic neuritis versus temporal arteritis. Hospital course complicated by NSTEMI, E. coli urinary tract infection, rectal bleeding with acute anemia. He became lethargic, admitted to the intensive care unit and found to have CVA. CTA head and neck revealed atherosclerotic disease. After giving TPA, the patient had tonic-clonic seizure and became obtunded with acute hypoxic and hypercarbic respiratory failure, intubated. Patient was then transferred to the hospitalist service when patient was more stable. 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 Repeat MRI unchanged. Patient also had seizures, EEG showed diffuse encephalopathy. -Continue Coumadin, statin, Ritalin. After discussion patient's daughter, she would like to try to get the patient off Keppra and hopefully will improve his mental status. She is aware that there is risk for seizures. Follow while off Keppra. Neuropsychology following. Was on steroids for optic neuritis. Encephalopathy persists, no change in mental status, family continues to be aggressive in goals ID REcurrent fever - spiked again Recurrent UTI-prior history of ESBL E. coli- new culture - 01/17- Pseudomonas Sacral decub with possible underlying infection, osteomyelitis. Fungemia- repeat cultures negative x 48 hours Possible Aspiration PNA - Sacral decub has eschar with possible underlying osteomyelitis. Patient family refused surgical sacral debridement after seen by plastic surgery. Wound care and Dr. Upton following. 12/31 Wound cx: ESBL E.coli -Garcia catheter changed 01/09/2018, Urine culture on 01/09 grew Pseudomonas pansensitive, -Status post ciprofloxacin and imipenem. Echocardiogram on 01/12, no vegetation. Ophthalmology has seen the patient, no fungal keratitis or fungal eye infection. - Repeat blood cultures still growing Xenia tropicalis, switched back to fluconazole per infectious disease. Still having fever, rechecked blood culture , repeat urinalysis still shows large leukocyte esterase and pyuria, leukocytosis increasing, CTT still in position with increased right-sided pleural effusion. - ID ff - Started on meropenem, and vancomycin. Continue Diflucan, once documented blood sterility, will continue fluconazole for at least 2 weeks whether oral or IV. Follow-up repeat blood culture. - FF up final urine cultures- 01/17- growing Pseudomonas - final s still pending - Blood cultures from 01/16 negative so far - restarted TF- tolerating well - wound care daily- per wound care team recommendations- S/P extensive bedside debridement 01/[address] Salazar - check CXR - no significant change, KUB- no acute findings Acute on chronic respiratory failure status post tracheostomy- currently on 28% T piece Bilateral Pleural effusion, with healthcare associated pneumonia - Pigtail catheters in place- left chest tube was removed 01/19 - right pigtail catheter still in place pleural fluid cultures negative consistent with transudative effusion. bronchodilators, pulmonary toilet. pulmonary following. Repeat chest x-ray- unchanged - minimal secretions - trach care- Acute renal failure on top of chronic kidney disease HYpernatremia- Na up again HYperkalemia - resolved -creatinine stabilizing ff UO and BMP - continue on 06/29 NS- Nurses Medical Assistants Phlebotomists ff. d/w staff- to give free water /PEG- reviewed EMR- not given - Kidney ultrasound unremarkable. - Nephrology ff - creatinine- stable, Na up today - ff daily Urinary retention - garcia placed 01/21 DM type 2 - A1C 9.6, BGs still high, - Levemir increased to 15 units twice a day on 01/17/2018, cont sliding scale insulin and adjust dose CHRONIC RESOLVED ISSUES: Scrotal Edema/ulcerations - seen by Urology: continue wcatheter as needed, scrotal elevation NSTEMI Echo 10/19: LV systolic function is moderately reduced, EF 40-45%. continue Coreg and statin. Anemia secondary to GI bleed- Status post EGD colonoscopy. GI has signed off, patient with healed rectal ulcers and hemorrhoids. Continue Pepcid. FEN Continue tube feeds-Glucerna 1.5 with goal rate 60ml/hr- restarted tube feedings add camille powder packet bid GI prophylaxis- on Pepcid DVT prophylaxis-on coumadin- INR therapeutic- 4.0 today- hold coumadin 01/07 long discussion with patient's daughter - custodial plan- she says it's difficult for them to take her home- working - SNF- no insurance- patient here visiting from [place] when this unfortunate event happened (5) Anemia Qualifiers: Anemia type: unspecified type Qualified Code(s): D64.9 - Anemia, unspecified
--- NOTE | 2018-01-22 16:07 | P.PNNP ---
Subjective Interval history: Patient seen, remain clinically same, unresponsive. Physical Exam Vital signs: Vital Signs 01/21/18 20:00 01/21/18 20:20 01/21/18 20:21 Temperature 98.6 F Pulse Rate 91 H 91 H Respiratory Rate 18 18 Blood Pressure 101/56 L Pulse Oximetry 96 97 01/22/18 00:00 01/22/18 01:05 01/22/18 04:00 Temperature 99.3 F 100.8 F H Pulse Rate 97 H 99 H Respiratory Rate 18 18 Blood Pressure 100/59 L 100/59 L Pulse Oximetry 96 96 95 01/22/18 08:20 01/22/18 08:34 01/22/18 10:42 Temperature 99.2 F Pulse Rate 102 H 106 H Respiratory Rate 19 18 Blood Pressure 102/60 Pulse Oximetry 96 95 96 01/22/18 12:57 Temperature 99.8 F H Pulse Rate 106 H Respiratory Rate 16 Blood Pressure 113/68 Pulse Oximetry 96 Intake & Output 01/21/18 01/22/18 01/22/18 18:59 06:59 18:59 Intake Total 1387 / 1387 800 / 800 1000 / 1000 Output Total 750 / 750 774 / 774 Balance 637 / 637 / 1000 / 1000 Weight 78.9 kg Intake: IV 1050 / 1050 100 / 100 1000 / 1000 1/2 Normal Saline Inj 1,000 ML 750 / 750 1000 / 1000 @ 60 mls/hr IV.CONT .[id number] EDE Rx#:[id number] Diflucan 400 mg Premix Bag 200 200 / 200 ML @ 100 mls/hr IV.SIG Q24H EDE Rx#:[id number] Merrem Inj 1,000 MG In NS Inj 100 / 100 100 / 100 100 ML @ 200 mls/hr IV.SIG Q12H EDE Rx#:[id number] Tube Feeding 187 / 187 700 / 700 Water Bolus Amount 150 / 150 Output: Urine 400 / 400 Urine Amount (Catheter) 750 / 750 Indwelling Urethral Catheter 750 / 750 Chest Tube Drainage 350 / 350 24 / 24 Right Mid-Axillary Chest 350 / 350 24 / 24 Other: Date of Last Bowel Movement 01/20/18 01/21/18 01/21/18 Narrative: no acute distress, opened eyes to call of name but less interactive compared to yesterday's exam tracheostomy- 28% t piece HEAD: Normocephalic. EYES: No scleral icterus. No injection or drainage. NECK: Supple, trachea midline. No JVD or lymphadenopathy. + trach CARDIOVASCULAR: Regular rate and rhythm RESPIRATORY: Breath sounds equal bilaterally, diminished at bases. No accessory muscle use. no rhonchis Right pigtail chest tube in place GASTROINTESTINAL: Abdomen soft, non-tender, nondistended. +PEG tube in place garcia in place- placed 01/21 Back- with sacral decubitus- eschar- debrided at bedside 01/20- by Dr. Upton MUSCULOSKELETAL: No cyanosis, or edema. Neuro: status- unchanged - Urinary Catheter Management Straight Cath placed during this visit: yes Urethral indwelling: Yes Reason for continuing: Acute urinary retention Insertion date: 01/21/18 Insertion time: 08:00 Indwelling Urethral Catheter Cath placed during this visit: yes, but has since been removed by the nurse Urethral indwelling: Yes Reason for continuing: Not indwelling catheter Insertion date: 01/21/18 Insertion time: 16:18 Removal date: 01/20/18 Removal time: 15:15 Assessment and Plan - Plan 1. Acute Kidney injury. 2. Respiratory failure. 3. Sepsis. 4. Anemia. 5. Encephalopathy. Patient has now again Acute kidney injury, Most likely due to ATN due to Hypotension and sepsis. Continue antibiotics. Creatinine remain stable at 1.5 No new BMP, continue IVF with 1/2 NS. Over all prognosis is guarded. Sodium is 149. D/W the daughter at bed side.
--- NOTE | 2018-01-22 18:14 | P.PNID ---
Subjective Remarks: more awake today and afebrile afebrile CXR with just taace pleural effusion Antibiotics: diflucan meropenem vanco Lines: periferal Lines ok Past Medical History: reviewed Allergies/Adverse Reactions: Allergies No Known Allergies Allergy (Verified 12/25/17 11:22) Objective Vital Signs 01/21/18 20:00 01/21/18 20:20 01/21/18 20:21 Temperature 98.6 F Pulse Rate 91 H 91 H Respiratory Rate 18 18 Blood Pressure 101/56 L Pulse Oximetry 96 97 01/22/18 00:00 01/22/18 01:05 01/22/18 04:00 Temperature 99.3 F 100.8 F H Pulse Rate 97 H 99 H Respiratory Rate 18 18 Blood Pressure 100/59 L 100/59 L Pulse Oximetry 96 96 95 01/22/18 08:20 01/22/18 08:34 01/22/18 10:42 Temperature 99.2 F Pulse Rate 102 H 106 H Respiratory Rate 19 18 Blood Pressure 102/60 Pulse Oximetry 96 95 96 01/22/18 12:57 Temperature 99.8 F H Pulse Rate 106 H Respiratory Rate 16 Blood Pressure 113/68 Pulse Oximetry 96 Intake & Output 01/21/18 01/22/18 01/22/18 18:59 06:59 18:59 Intake Total 1387 / 1387 800 / 800 1000 / 1000 Output Total 750 / 750 774 / 774 Balance 637 / 637 26 / 26 1000 / 1000 Weight 78.9 kg Intake: IV 1050 / 1050 100 / 100 1000 / 1000 1/2 Normal Saline Inj 1,000 ML 750 / 750 1000 / 1000 @ 60 mls/hr IV.CONT .[id number] EDE Rx#:[id number] Diflucan 400 mg Premix Bag 200 200 / 200 ML @ 100 mls/hr IV.SIG Q24H EDE Rx#:[id number] Merrem Inj 1,000 MG In NS Inj 100 / 100 100 / 100 100 ML @ 200 mls/hr IV.SIG Q12H EDE Rx#:[id number] Tube Feeding 187 / 187 700 / 700 Water Bolus Amount 150 / 150 Output: Urine 400 / 400 Urine Amount (Catheter) 750 / 750 Indwelling Urethral Catheter 750 / 750 Chest Tube Drainage 350 / 350 24 / 24 Right Mid-Axillary Chest 350 / 350 24 / 24 Other: Date of Last Bowel Movement 01/20/18 01/21/18 01/21/18 01/20/18 13:15 Blood - Peripheral Aerobic Blood Culture - Preliminary No growth in 2 days 01/20/18 13:15 Blood - Peripheral Anaerobic Blood Culture - Preliminary No growth in 2 days 01/20/18 13:20 Blood - Peripheral Aerobic Blood Culture - Preliminary No growth in 2 days 01/20/18 13:20 Blood - Peripheral Anaerobic Blood Culture - Preliminary No growth in 2 days 01/16/18 13:15 Blood - Peripheral Aerobic Blood Culture - Final No growth in 5 days 01/16/18 13:15 Blood - Peripheral Anaerobic Blood Culture - Final No growth in 5 days 01/16/18 13:05 Blood - Peripheral Aerobic Blood Culture - Final No growth in 5 days 01/16/18 13:05 Blood - Peripheral Anaerobic Blood Culture - Final No growth in 5 days 01/17/18 00:23 Catheterized Urine Urine Culture - Final Pseudomonas aeruginosa Escherichia coli ESBL positive Lab - Hematology Results 01/21/18 01/22/18 14:15 08:41 WBC 10.7 RBC 2.62 L Hgb 7.8 L 8.3 L Hct 25.0 L 26.1 L MCV 95.5 D MCH 29.7 MCHC 31.1 L RDW 20.1 H Plt Count 389 MPV 9.4 Neut % (Auto) 51.0 Lymph % (Auto) 37.0 [place] % (Auto) 8.5 H Eos % (Auto) 2.9 Baso % (Auto) 0.6 Neut # (Auto) 5.5 Lymph # (Auto) 4.0 [place] # (Auto) 0.9 Eos # (Auto) 0.3 Baso # (Auto) 0.1 WBC Differential . Differential Comment Auto diff final Hematology Comments Lab - Chemistry Results 01/21/18 01/21/18 01/21/18 00:27 06:23 10:34 Sodium Potassium Chloride Carbon Dioxide Anion Gap BUN Creatinine Estimated GFR POC Glucose 156 H 128 H 124 H Random Glucose Calcium Total Bilirubin AST ALT Alkaline Phosphatase Total Protein Albumin 01/21/18 01/21/18 01/21/18 12:38 16:38 23:33 Sodium Potassium Chloride Carbon Dioxide Anion Gap BUN Creatinine Estimated GFR POC Glucose 121 H 118 H 156 H Random Glucose Calcium Total Bilirubin AST ALT Alkaline Phosphatase Total Protein Albumin 01/22/18 01/22/18 01/22/18 06:45 08:18 08:41 Sodium 149 H Potassium 4.7 Chloride 120 H Carbon Dioxide 21.1 Anion Gap 8 BUN 53 H Creatinine 1.55 H Estimated GFR 44 L POC Glucose 180 H 197 H Random Glucose 169 H Calcium 7.6 L Total Bilirubin 0.3 AST 125 H ALT 73 Alkaline Phosphatase 222 H Total Protein 6.7 Albumin 1.2 L 01/22/18 12:16 Sodium Potassium Chloride Carbon Dioxide Anion Gap BUN Creatinine Estimated GFR POC Glucose 207 H Random Glucose Calcium Total Bilirubin AST ALT Alkaline Phosphatase Total Protein Albumin Imaging: ITS Impressions Head MRI 01/02/18 00:00 CONCLUSION: 1. 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 2. Cerebral atrophy and chronic ischemic small vessel vasculopathy. Chest CT 01/03/18 00:00 CONCLUSION: 1. Large bilateral pleural effusions occupying more than half of the right and left hemithorax. Abdomen/Pelvis CT 01/13/18 00:00 CONCLUSION: 1. Small bilateral pleural effusions and basilar infiltrates with bilateral chest tubes in place. 2. No evidence of ascites or bowel dilatation. Abdomen/Bladder Ultrasound 01/15/18 00:00 CONCLUSION: 1. Negative renal sonogram. Abdomen X-Ray 01/19/18 00:00 CONCLUSION: Chest X-Ray 01/22/18 06:00 CONCLUSION: 1. Apparent interval removal of left-sided chest tube. 2. Stable right-sided chest tube. 3. Stable bilateral lower lung zone patchy airspace disease and trace left pleural effusion. Physical Exam: GENERAL: Patient is 77 yo on Tpiece SKIN: Warm and dry. No rash HEAD: Normocephalic. EYES: No scleral icterus. No injection or drainage. NECK: Supple, trachea midline. + trach in place with large amount of drainage CARDIOVASCULAR: RRR. No murmurs, rubs, gallops RESPIRATORY: Breath sounds equal bilaterally. No accessory muscle use. R CT in place with serous drainage GASTROINTESTINAL: Abdomen soft, non-tender, nondistended. +PEG tube in place MUSCULOSKELETAL: No cyanosis, less prominent edema. GUl; garcia in place with yellow urine Neuro: Lethargic, but opens eyes to voice and tracks, not follows Assessment and Plan - Plan Sacral decub with possible underlying infection, osteomyelitis. Prior h/o ESBL E.coli on 10/24/2017. Possible HCAP GNR UTI ? ESBL given h/o ESBL. 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 Encephalopathy: strokes in hospital, optic neuritis on presentation. New issue: fungemia, C. tropicalis - persistent fungemia Persistent fever Gram negative UTI: PSAE and ESBL + Kleb Recs: cont Fluconazol Once documented blood sterility will cont fluconazole at least 2 weeks MOnitoring parameters: CBC CMP transition to oral form when ready for dc Meropenem x 2 weeks paola guevara dgtr @ b/s
[2018-01-23] MEDS: Insulin NovoLIN Regular Correctional Sugar Inj SQ SCH ×3 (06:05→18:37)
[2018-01-23] MEDS: Sodium Chloride 0.45 % Inj 1,000 ML IV.CONT SCH ×2 (06:20→22:17)
[2018-01-23] MEDS: Insulin Detemir Inj 1,000 UNIT/10 ML Vial SQ SCH ×2 (08:07→22:20)
[2018-01-23] MEDS: Famotidine 20 MG Tablet PO SCH ×2 (08:08→22:22)
[2018-01-23] MEDS: Acetaminophen 325 MG Tablet PO PRN ×2 (08:08→22:11)
[2018-01-23] MEDS: Collagenase Oint 30 GM Tube TOPICAL SCH (08:09)
[2018-01-23 09:38] LABS: INR 2.3 Ratio; Prothrombin Time 23.7 sec (9.8-11.6)
--- NOTE | 2018-01-23 10:06 | P.PNPL ---
Subjective Interval history: No events overnight. On TP's with 28% FIO2. T: 100.4 Physical Exam Vital signs: Vital Signs 01/22/18 10:42 01/22/18 12:57 01/22/18 19:00 Temperature 99.2 F 99.8 F H Pulse Rate 106 H 106 H Respiratory Rate 18 16 Blood Pressure 102/60 113/68 Pulse Oximetry 96 96 96 01/22/18 20:00 01/22/18 20:37 01/22/18 23:00 Temperature 99.6 F Pulse Rate 101 H 104 H Respiratory Rate 20 18 14 Blood Pressure 116/63 Pulse Oximetry 97 01/23/18 00:00 01/23/18 02:02 01/23/18 04:00 Temperature 98.3 F 98.0 F Pulse Rate 102 H 99 H 98 H Respiratory Rate 22 28 H 22 Blood Pressure 136/69 118/62 Pulse Oximetry 98 99 97 01/23/18 07:56 01/23/18 08:36 01/23/18 08:37 Temperature 100.4 F H Pulse Rate 99 H 99 H Respiratory Rate 18 14 Blood Pressure 107/62 Pulse Oximetry 97 97 Intake & Output 01/22/18 01/23/18 01/23/18 18:59 06:59 18:59 Intake Total 1100 / 1100 1300 / 1300 Output Total 151 / 151 1450 / 1450 Balance 949 / 949 -150 / -150 Weight 78.9 kg Intake: IV 1100 / 1100 1300 / 1300 1/2 Normal Saline Inj 1,000 ML 1000 / 1000 1000 / 1000 @ 60 mls/hr IV.CONT .[id number] EDE Rx#:[id number] Diflucan 400 mg Premix Bag 200 200 / 200 ML @ 100 mls/hr IV.SIG Q24H EDE Rx#:[id number] Merrem Inj 1,000 MG In NS Inj 100 / 100 100 / 100 100 ML @ 200 mls/hr IV.SIG Q12H EDE Rx#:[id number] Oral 0 / 0 Output: Urine 1450 / 1450 Chest Tube Drainage 151 / 151 Right 151 / 151 Other: Date of Last Bowel Movement 01/21/18 01/22/18 # Bowel Movements 1 # Incontinent Bowel Movements 1 - Constitutional no acute distress - Routine HEENT Exam Head: Present: normocephalic, atraumatic Eye: Present: EOMI, PERRL, conjunctivae pink ENT: Present: mucous membranes moist - Routine Neck Exam Present: supple, full ROM, trachea midline - Routine Respiratory Exam Present: CTA bilaterally - Routine Cardiovascular Exam Present: RRR, S1, S2 - Routine Abdominal Exam Present: soft, normoactive bowel sounds - Routine Extremities Exam Present: pulses intact - Routine Skin Exam Present: intact - Routine Neurological Exam Present: altered mental status - Routine Psychiatric Exam Present: unable to assess - Urinary Catheter Management Straight Cath placed during this visit: yes Urethral indwelling: Yes Reason for continuing: Acute urinary retention Insertion date: 01/21/18 Insertion time: 08:00 Indwelling Urethral Catheter Cath placed during this visit: yes, but has since been removed by the nurse Urethral indwelling: Yes Reason for continuing: Not indwelling catheter Insertion date: 01/21/18 Insertion time: 16:18 Removal date: 01/20/18 Removal time: 15:15 Assessment and Plan - Plan 1)Chronic resp failure 2)s/p trach and PEG tube placement 3)Encephalopathy 4)CVA 5)Anemia 6)CAD/NSTEMI 7)Wound of sacral region 8)Optic neuritis 9)Fungemia 10UTI- E.coli ESBL, Pseudomonas Plan Continue with TP's keep sats >92% Bronchodilators Pulm toilet, trach care s/p removal of left CT, right CT in place monitor drainage Abx per ID( Merrem, Diflucan)monitor for signs of infections ( fever, WBC) Check sputum cx CXR 01/22-b/L lower lung zone airspace disease, trace left pleural effusion Monitor CBC, INR on Coumadin with INR 2.3 today Continue treatment plan.
--- NOTE | 2018-01-23 10:52 | P.PN ---
Subjective Interval history: patient more awake this am seen during nursing care tolerating tube feedings T max 100.4 Physical Exam Vital signs: Vital Signs 01/22/18 12:57 01/22/18 19:00 01/22/18 20:00 Temperature 99.8 F H 99.6 F Pulse Rate 106 H 101 H Respiratory Rate 16 20 Blood Pressure 113/68 116/63 Pulse Oximetry 96 96 97 01/22/18 20:37 01/22/18 23:00 01/23/18 00:00 Temperature 98.3 F Pulse Rate 104 H 102 H Respiratory Rate 18 14 22 Blood Pressure 136/69 Pulse Oximetry 98 01/23/18 02:02 01/23/18 04:00 01/23/18 07:56 Temperature 98.0 F 100.4 F H Pulse Rate 99 H 98 H 99 H Respiratory Rate 28 H 22 18 Blood Pressure 118/62 107/62 Pulse Oximetry 99 97 97 01/23/18 08:36 01/23/18 08:37 Temperature Pulse Rate 99 H Respiratory Rate 14 Blood Pressure Pulse Oximetry 97 Intake & Output 01/22/18 01/23/18 01/23/18 18:59 06:59 18:59 Intake Total 1100 / 1100 1300 / 1300 Output Total 151 / 151 1450 / 1450 Balance 949 / 949 -150 / -150 Weight 78.9 kg Intake: IV 1100 / 1100 1300 / 1300 1/2 Normal Saline Inj 1,000 ML 1000 / 1000 1000 / 1000 @ 60 mls/hr IV.CONT .[id number] EDE Rx#:[id number] Diflucan 400 mg Premix Bag 200 200 / 200 ML @ 100 mls/hr IV.SIG Q24H EDE Rx#:[id number] Merrem Inj 1,000 MG In NS Inj 100 / 100 100 / 100 100 ML @ 200 mls/hr IV.SIG Q12H EDE Rx#:[id number] Oral 0 / 0 Output: Urine 1450 / 1450 Chest Tube Drainage 151 / 151 Right 151 / 151 Other: Date of Last Bowel Movement 01/21/18 01/22/18 # Bowel Movements 1 # Incontinent Bowel Movements 1 Narrative: no acute distress, more awake this am tracheostomy- 28% t piece HEAD: Normocephalic. EYES: No scleral icterus. No injection or drainage. NECK: Supple, trachea midline. No JVD or lymphadenopathy. + trach CARDIOVASCULAR: Regular rate and rhythm RESPIRATORY: Breath sounds equal bilaterally, diminished at bases. No accessory muscle use. no rhonchis Right pigtail chest tube in place GASTROINTESTINAL: Abdomen soft, non-tender, nondistended. +PEG tube in place garcia in place- placed 01/21 Back- with sacral decubitus- deep edges no necrotic tissue debrided at bedside 01/20- by Dr. Upton MUSCULOSKELETAL: No cyanosis, or edema. Neuro: status- unchanged - Urinary Catheter Management Straight Cath placed during this visit: yes Urethral indwelling: Yes Reason for continuing: Acute urinary retention Insertion date: 01/21/18 Insertion time: 08:00 Indwelling Urethral Catheter Cath placed during this visit: yes, but has since been removed by the nurse Urethral indwelling: Yes Reason for continuing: Not indwelling catheter Insertion date: 01/21/18 Insertion time: 16:18 Removal date: 01/20/18 Removal time: 15:15 Results - Labs CBC & Chem 7: 01/22/18 08:41 01/22/18 08:41 Laboratory Results - last 24 hr 01/22/18 01/22/18 01/22/18 12:16 18:21 20:46 PT INR POC Glucose 207 H 193 H 205 H 01/22/18 01/23/18 01/23/18 23:55 05:56 07:41 PT INR POC Glucose 215 H 197 H 197 H 01/23/18 08:55 PT 23.7 H D INR 2.3 POC Glucose Microbiology 01/20/18 13:15 Blood - Peripheral Aerobic Blood Culture - Preliminary No growth in 2 days 01/20/18 13:15 Blood - Peripheral Anaerobic Blood Culture - Preliminary No growth in 2 days 01/20/18 13:20 Blood - Peripheral Aerobic Blood Culture - Preliminary No growth in 2 days 01/20/18 13:20 Blood - Peripheral Anaerobic Blood Culture - Preliminary No growth in 2 days - Imaging Impressions Chest X-Ray 01/22/18 00:00 CONCLUSION: No significant change. Assessment and Plan - Assessment (1) Encephalopathy Code(s): G93.40 - Encephalopathy, unspecified Status: Acute (2) CVA (cerebral vascular accident) Code(s): I63.9 - Cerebral infarction, unspecified Status: Acute (3) Wound of sacral region Code(s): S31.000A - Unspecified open wound of lower back and pelvis without penetration into retroperitoneum, initial encounter Status: Acute (4) NSTEMI (non-ST elevated myocardial infarction) Code(s): I21.4 - Non-ST elevation (NSTEMI) myocardial infarction Status: Resolved (5) Anemia Code(s): D64.9 - Anemia, unspecified Status: Acute (6) Respiratory failure with hypoxia and hypercapnia Code(s): J96.91 - Respiratory failure, unspecified with hypoxia; J96.92 - Respiratory failure, unspecified with hypercapnia Status: Resolved (7) Optic neuritis Code(s): H46.9 - Unspecified optic neuritis Status: Resolved - Plan This is a 77-year-old male who initially presented with vision changes with concern for optic neuritis versus temporal arteritis. Hospital course complicated by NSTEMI, E. coli urinary tract infection, rectal bleeding with acute anemia. He became lethargic, admitted to the intensive care unit and found to have CVA. CTA head and neck revealed atherosclerotic disease. After giving TPA, the patient had tonic-clonic seizure and became obtunded with acute hypoxic and hypercarbic respiratory failure, intubated. Patient was then transferred to the hospitalist service when patient was more stable. 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 Repeat MRI unchanged. Patient also had seizures, EEG showed diffuse encephalopathy. -Continue statin, Ritalin. After discussion patient's daughter, she would like to try to get the patient off Keppra and hopefully will improve his mental status. She is aware that there is risk for seizures. Follow while off Keppra. Neuropsychology following. Was on steroids for optic neuritis. Encephalopathy persists, no change in mental status, family continues to be aggressive in goals -restart coumadin- pharmacy ff . f INR ID REcurrent fever - spiked again Recurrent UTI-prior history of ESBL E. coli- new culture - 01/17- Pseudomonas Sacral decub with possible underlying infection, osteomyelitis. Fungemia- repeat cultures negative x 48 hours Possible Aspiration PNA - Sacral decub has eschar with possible underlying osteomyelitis. Patient family refused surgical sacral debridement after seen by plastic surgery. Wound care and Dr. Upton following. 12/31 Wound cx: ESBL E.coli -Garcia catheter changed 01/09/2018, Urine culture on 01/09 grew Pseudomonas pansensitive, -Status post ciprofloxacin and imipenem. Echocardiogram on 01/12, no vegetation. Ophthalmology has seen the patient, no fungal keratitis or fungal eye infection. - Repeat blood cultures still growing Xenia tropicalis, switched back to fluconazole per infectious disease. Still having fever, rechecked blood culture , repeat urinalysis still shows large leukocyte esterase and pyuria, leukocytosis increasing, CTT still in position with increased right-sided pleural effusion. - ID ff - Started on meropenem, and vancomycin. Continue Diflucan, once documented blood sterility, will continue fluconazole for at least 2 weeks whether oral or IV. Follow-up repeat blood culture. - FF up final urine cultures- 01/17- growing Pseudomonas - final s still pending - Blood cultures from 01/16 negative so far - restarted TF- tolerating well - wound care daily- per wound care team recommendations- S/P extensive bedside debridement 01/[address] Salazar - check CXR - no significant change, KUB- no acute findings Acute on chronic respiratory failure status post tracheostomy- currently on 28% T piece Bilateral Pleural effusion, with healthcare associated pneumonia - Pigtail catheters in place- left chest tube was removed 01/19 - right pigtail catheter still in place pleural fluid cultures negative consistent with transudative effusion. bronchodilators, pulmonary toilet. pulmonary following. Repeat chest x-ray- unchanged - minimal secretions - trach care- Acute renal failure on top of chronic kidney disease HYpernatremia- Na up again HYperkalemia - resolved -creatinine stabilizing ff UO and BMP - continue on 06/29 NS- Manager Baby ff. d/w staff- to give free water /PEG- reviewed EMR- not given - Kidney ultrasound unremarkable. - Nephrology ff - creatinine- stable, Na up today - ff daily Urinary retention - garcia placed 01/21 DM type 2 - A1C 9.6, BGs still high, - Levemir increased to 15 units twice a day on 01/17/2018, cont sliding scale insulin and adjust dose CHRONIC RESOLVED ISSUES: Scrotal Edema/ulcerations - seen by Urology: continue wcatheter as needed, scrotal elevation NSTEMI Echo 10/19: LV systolic function is moderately reduced, EF 40-45%. continue Coreg and statin. Anemia secondary to GI bleed- Status post EGD colonoscopy. GI has signed off, patient with healed rectal ulcers and hemorrhoids. Continue Pepcid. FEN Continue tube feeds-Glucerna 1.5 with goal rate 60ml/hr- restarted tube feedings add camille powder packet bid GI prophylaxis- on Pepcid DVT prophylaxis-on coumadin- INR now down to 2.3- restart coumadin- pharmacy dsoing 01/07 long discussion with patient's daughter - fpc plan- she says it's difficult for them to take her home- working - SNF- no insurance- patient here visiting from [place] when this unfortunate event happened seen with daughter at bedside- 01/23 (5) Anemia Qualifiers: Anemia type: unspecified type Qualified Code(s): D64.9 - Anemia, unspecified
[2018-01-23] MEDS: Hydrocortisone Acetate 25 MG Supp RECTAL SCH ×2 (11:05→22:19)
[2018-01-23] MEDS: Polyethylene Glycol 3350 17 GM Packet PO SCH (18:38)
[2018-01-24] MEDS: Insulin NovoLIN Regular Correctional Sugar Inj SQ SCH ×4 (00:38→21:51)
[2018-01-24] MEDS: Sodium Chloride 0.45 % Inj 1,000 ML IV.CONT SCH ×2 (03:01→21:52)
[2018-01-24 09:41] LABS: INR 2.5 Ratio; Prothrombin Time 25.4 sec (9.8-11.6)
[2018-01-24] MEDS: Famotidine 20 MG Tablet PO SCH ×2 (10:04→21:59)
[2018-01-24] MEDS: Polyethylene Glycol 3350 17 GM Packet PO SCH (10:05)
[2018-01-24] MEDS: Hydrocortisone Acetate 25 MG Supp RECTAL SCH ×2 (13:41→22:00)
[2018-01-24] MEDS: Insulin Detemir Inj 1,000 UNIT/10 ML Vial SQ SCH ×2 (13:42→22:01)
[2018-01-24] MEDS: Collagenase Oint 30 GM Tube TOPICAL SCH (13:43)
--- NOTE | 2018-01-24 16:19 | P.PN ---
Subjective Interval history: seen with family/daughter at bedside barbara awake and alert, made eye contact and seemed respond with eye movement when spoken to by daughter reported episode of vomiting x 1 by staff nurse last evening none since we did suctioning of trach - no tube feedings, clear secretions Physical Exam Vital signs: Vital Signs 01/23/18 20:00 01/23/18 21:39 01/23/18 23:00 Temperature 101 F H Pulse Rate 100 H 101 H Respiratory Rate 22 18 18 Blood Pressure 104/56 L Pulse Oximetry 99 99 01/24/18 00:00 01/24/18 04:00 01/24/18 08:00 Temperature 100.6 F H 97.9 F 98.2 F Pulse Rate 100 H 100 H 104 H Respiratory Rate 22 22 Blood Pressure 95/61 L 110/64 105/62 Pulse Oximetry 100 98 98 01/24/18 09:15 01/24/18 12:00 Temperature 98.6 F Pulse Rate 100 H 104 H Respiratory Rate 17 24 Blood Pressure 101/61 Pulse Oximetry 96 Intake & Output 01/23/18 01/24/18 01/24/18 18:59 06:59 18:59 Intake Total 1100 / 1100 100 / 100 Output Total 120 / 120 1200 / 1200 Balance 980 / 980 -1100 / -1100 Intake: IV 1100 / 1100 100 / 100 1/2 Normal Saline Inj 1,000 ML 1000 / 1000 @ 60 mls/hr IV.CONT .[id number] EDE Rx#:[id number] Merrem Inj 1,000 MG In NS Inj 100 / 100 100 / 100 100 ML @ 200 mls/hr IV.SIG Q12H EDE Rx#:[id number] Oral 0 / 0 Output: Urine 1200 / 1200 Chest Tube Drainage 120 / 120 Right 120 / 120 Other: Date of Last Bowel Movement 01/23/18 01/23/18 Narrative: no acute distress, awke and alert tracheostomy- 28% t piece HEAD: Normocephalic. EYES: No scleral icterus. No injection or drainage. NECK: Supple, trachea midline. No JVD or lymphadenopathy. + trach CARDIOVASCULAR: Regular rate and rhythm RESPIRATORY: Breath sounds equal bilaterally, diminished at bases. No accessory muscle use. no rhonchi Right pigtail chest tube in place GASTROINTESTINAL: Abdomen soft, non-tender, nondistended. +PEG tube in place garcia in place- placed 01/21 Back- with sacral decubitus- deep edges no necrotic tissue debrided at bedside 01/20- by Dr. Upton MUSCULOSKELETAL: No cyanosis, or edema. Neuro: status- unchanged - Urinary Catheter Management Straight Cath placed during this visit: yes Urethral indwelling: Yes Reason for continuing: Acute urinary retention Insertion date: 01/21/18 Insertion time: 08:00 Indwelling Urethral Catheter Cath placed during this visit: yes, but has since been removed by the nurse Urethral indwelling: Yes Reason for continuing: Not indwelling catheter Insertion date: 01/21/18 Insertion time: 16:18 Removal date: 01/20/18 Removal time: 15:15 Results - Labs CBC & Chem 7: 01/22/18 08:41 01/22/18 08:41 Laboratory Results - last 24 hr 01/23/18 01/23/18 01/23/18 18:34 22:20 23:55 PT INR POC Glucose 210 H 206 H 192 H 01/24/18 01/24/18 01/24/18 07:19 09:10 13:34 PT 25.4 H INR 2.5 POC Glucose 142 H 155 H Microbiology 01/23/18 18:30 Sputum - Endotracheal Gram Stain - Final 01/23/18 18:30 Sputum - Endotracheal Sputum Culture - Preliminary Immature growth - reincubate 01/03/18 17:00 Fluid - Pleural fluid Fungal Smear - Final No fungal elements seen 01/03/18 17:00 Fluid - Pleural fluid Fungal Culture - Preliminary No growth in 3 weeks 01/03/18 17:00 Fluid - Pleural fluid Acid Fast Bacilli Smear - Final No acid fast bacilli seen 01/03/18 17:00 Fluid - Pleural fluid Mycobacterial Culture - Preliminary No growth in 3 weeks 01/20/18 13:15 Blood - Peripheral Aerobic Blood Culture - Preliminary No growth in 4 days 01/20/18 13:15 Blood - Peripheral Anaerobic Blood Culture - Preliminary No growth in 4 days 01/20/18 13:20 Blood - Peripheral Aerobic Blood Culture - Preliminary No growth in 4 days 01/20/18 13:20 Blood - Peripheral Anaerobic Blood Culture - Preliminary No growth in 4 days Assessment and Plan - Assessment (1) Encephalopathy Code(s): G93.40 - Encephalopathy, unspecified Status: Acute (2) CVA (cerebral vascular accident) Code(s): I63.9 - Cerebral infarction, unspecified Status: Acute (3) Wound of sacral region Code(s): S31.000A - Unspecified open wound of lower back and pelvis without penetration into retroperitoneum, initial encounter Status: Acute (4) NSTEMI (non-ST elevated myocardial infarction) Code(s): I21.4 - Non-ST elevation (NSTEMI) myocardial infarction Status: Resolved (5) Anemia Code(s): D64.9 - Anemia, unspecified Status: Acute (6) Respiratory failure with hypoxia and hypercapnia Code(s): J96.91 - Respiratory failure, unspecified with hypoxia; J96.92 - Respiratory failure, unspecified with hypercapnia Status: Resolved (7) Optic neuritis Code(s): H46.9 - Unspecified optic neuritis Status: Resolved - Plan This is a 77-year-old male who initially presented with vision changes with concern for optic neuritis versus temporal arteritis. Hospital course complicated by NSTEMI, E. coli urinary tract infection, rectal bleeding with acute anemia. He became lethargic, admitted to the intensive care unit and found to have CVA. CTA head and neck revealed atherosclerotic disease. After giving TPA, the patient had tonic-clonic seizure and became obtunded with acute hypoxic and hypercarbic respiratory failure, intubated. Patient was then transferred to the hospitalist service when patient was more stable. 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 Repeat MRI unchanged. Patient also had seizures, EEG showed diffuse encephalopathy. -Continue statin, Ritalin. After discussion patient's daughter, she would like to try to get the patient off Keppra and hopefully will improve his mental status. She is aware that there is risk for seizures. Follow while off Keppra. Neuropsychology following. Was on steroids for optic neuritis. Encephalopathy persists, no change in mental status, family continues to be aggressive in goals -restart coumadin- pharmacy ff . f INR ID REcurrent fever - spiked again Recurrent UTI-prior history of ESBL E. coli- new culture - 01/17- Pseudomonas Sacral decub with possible underlying infection, osteomyelitis. Fungemia- repeat cultures negative x 48 hours Possible Aspiration PNA - Sacral decub has eschar with possible underlying osteomyelitis. Patient family refused surgical sacral debridement after seen by plastic surgery. Wound care and Dr. Upton following. 12/31 Wound cx: ESBL E.coli -Garcia catheter changed 01/09/2018, Urine culture on 01/09 grew Pseudomonas pansensitive, -Status post ciprofloxacin and imipenem. Echocardiogram on 01/12, no vegetation. Ophthalmology has seen the patient, no fungal keratitis or fungal eye infection. - Repeat blood cultures still growing Xenia tropicalis, switched back to fluconazole per infectious disease. Still having fever, rechecked blood culture , repeat urinalysis still shows large leukocyte esterase and pyuria, leukocytosis increasing, CTT still in position with increased right-sided pleural effusion. - ID ff - Started on meropenem, and vancomycin. Continue Diflucan, once documented blood sterility, will continue fluconazole for at least 2 weeks whether oral or IV. Follow-up repeat blood culture. - FF up final urine cultures- 01/17- growing Pseudomonas - final s still pending - Blood cultures from 01/16 negative so far - restarted TF- tolerating well - wound care daily- per wound care team recommendations- S/P extensive bedside debridement 01/[address] Salazar - check CXR - no significant change, KUB- no acute findings Acute on chronic respiratory failure status post tracheostomy- currently on 28% T piece Bilateral Pleural effusion, with healthcare associated pneumonia - Pigtail catheters in place- left chest tube was removed 01/19 - right pigtail catheter still in place pleural fluid cultures negative consistent with transudative effusion. bronchodilators, pulmonary toilet. pulmonary following. Repeat chest x-ray- unchanged - minimal secretions - trach care- Acute renal failure on top of chronic kidney disease HYpernatremia- HYperkalemia - resolved -creatinine stabilizing ff UO and BMP - continue on 06/29 NS- Legal Assistant ff. d/w staff- to give free water /PEG- reviewed EMR- not given - Kidney ultrasound unremarkable. - Nephrology ff - creatinine- stable - ff CMP in am Urinary retention - garcia placed 01/21 DM type 2 - A1C 9.6, BGs still high, - Levemir increased to 15 units twice a day on 01/17/2018, cont sliding scale insulin and adjust dose CHRONIC RESOLVED ISSUES: Scrotal Edema/ulcerations - seen by Urology: continue wcatheter as needed, scrotal elevation NSTEMI Echo 10/19: LV systolic function is moderately reduced, EF 40-45%. continue Coreg and statin. Anemia secondary to GI bleed- Status post EGD colonoscopy. GI has signed off, patient with healed rectal ulcers and hemorrhoids. Continue Pepcid. Vomiting x 1 episode last evening- 01/23 - TF held last evening- no residual - abdominal exam- beningn, soft with good bowel sounds -restart tube feeds-Glucerna 1.5 with start at 20 cc/hr and increase gradually every 4 hours camille powder packet bid - d/w staff nurse - if persisit will check XR - check CMP in am- LFTs GI prophylaxis- on Pepcid DVT prophylaxis-on coumadin- INR therapeutic - pharmacy dsoing 01/07 long discussion with patient's daughter - termite inspector plan- she says it's difficult for them to take her home- working - SNF- no insurance- patient here visiting from [place] when this unfortunate event happened seen with daughter at bedside- 01/23 (5) Anemia Qualifiers: Anemia type: unspecified type Qualified Code(s): D64.9 - Anemia, unspecified
[2018-01-25] MEDS: Insulin NovoLIN Regular Correctional Sugar Inj SQ SCH ×4 (00:12→17:06)
[2018-01-25] MEDS: Polyethylene Glycol 3350 17 GM Packet PO SCH (09:14)
[2018-01-25] MEDS: Collagenase Oint 30 GM Tube TOPICAL SCH (09:14)
[2018-01-25] MEDS: Hydrocortisone Acetate 25 MG Supp RECTAL SCH ×2 (09:14→22:09)
[2018-01-25] MEDS: Famotidine 20 MG Tablet PO SCH ×2 (09:14→22:08)
[2018-01-25] MEDS: Insulin Detemir Inj 1,000 UNIT/10 ML Vial SQ SCH ×2 (09:16→22:14)
--- NOTE | 2018-01-25 09:40 | P.PN ---
Subjective Interval history: opens eyes on Tpiece NAD Physical Exam Vital signs: Vital Signs 01/24/18 12:00 01/24/18 16:00 01/24/18 19:45 Temperature 98.6 F 98.2 F Pulse Rate 102 H 96 H 95 H Respiratory Rate 24 24 18 Blood Pressure 101/61 103/56 L Pulse Oximetry 96 100 98 01/24/18 20:00 01/24/18 22:07 01/25/18 00:00 Temperature 97.9 F 98 F Pulse Rate 95 H 96 H Respiratory Rate 18 18 Blood Pressure 100/57 L 108/59 L Pulse Oximetry 98 98 97 01/25/18 02:29 01/25/18 04:00 01/25/18 08:46 Temperature 99.9 F H Pulse Rate 95 H 95 H 96 H Respiratory Rate 18 20 Blood Pressure 102/62 Pulse Oximetry 97 95 Intake & Output 01/24/18 01/25/18 01/25/18 18:59 06:59 18:59 Intake Total 1909 Output Total 500 / 500 Balance 1909 -500 / -500 Intake: IV 1100 / 1100 1/2 Normal Saline Inj 1,000 ML 1000 / 1000 @ 60 mls/hr IV.CONT .[id number] EDE Rx#:[id number] Merrem Inj 1,000 MG In NS Inj 100 / 100 100 ML @ 200 mls/hr IV.SIG Q12H EDE Rx#:[id number] Oral 250 / 250 Tube Feeding 60 / 60 Tube Irrigant 250 / 250 Water Bolus Amount 250 / 250 Output: Urine 500 / 500 Other: Date of Last Bowel Movement 01/24/18 Narrative: no acute distress, awke and alert tracheostomy- 28% t piece HEAD: Normocephalic. EYES: No scleral icterus. No injection or drainage. NECK: Supple, trachea midline. No JVD or lymphadenopathy. + trach CARDIOVASCULAR: Regular rate and rhythm RESPIRATORY: Breath sounds equal bilaterally, diminished at bases. No accessory muscle use. no rhonchi Right pigtail chest tube in place GASTROINTESTINAL: Abdomen soft, non-tender, nondistended. +PEG tube in place garcia in place- placed 01/21 Back- with sacral decubitus- deep edges no necrotic tissue debrided at bedside 01/20- by Dr. Upton MUSCULOSKELETAL: No cyanosis, or edema. Neuro: status- unchanged - Urinary Catheter Management Straight Cath placed during this visit: yes Urethral indwelling: Yes Reason for continuing: Acute urinary retention Insertion date: 01/21/18 Insertion time: 08:00 Indwelling Urethral Catheter Cath placed during this visit: yes, but has since been removed by the nurse Urethral indwelling: Yes Reason for continuing: Not indwelling catheter Insertion date: 01/21/18 Insertion time: 16:18 Removal date: 01/20/18 Removal time: 15:15 Results - Labs CBC & Chem 7: 01/22/18 08:41 01/22/18 08:41 Laboratory Results - last 24 hr 01/24/18 01/24/18 01/24/18 09:10 13:34 16:24 PT 25.4 H INR 2.5 POC Glucose 155 H 147 H 01/25/18 01/25/18 01/25/18 00:12 07:05 09:16 PT INR POC Glucose 149 H 153 H 154 H Microbiology 01/23/18 18:30 Sputum - Endotracheal Gram Stain - Final 01/23/18 18:30 Sputum - Endotracheal Sputum Culture - Preliminary Immature growth - reincubate 01/03/18 17:00 Fluid - Pleural fluid Fungal Smear - Final No fungal elements seen 01/03/18 17:00 Fluid - Pleural fluid Fungal Culture - Preliminary No growth in 3 weeks 01/03/18 17:00 Fluid - Pleural fluid Acid Fast Bacilli Smear - Final No acid fast bacilli seen 01/03/18 17:00 Fluid - Pleural fluid Mycobacterial Culture - Preliminary No growth in 3 weeks 01/20/18 13:15 Blood - Peripheral Aerobic Blood Culture - Preliminary No growth in 4 days 01/20/18 13:15 Blood - Peripheral Anaerobic Blood Culture - Preliminary No growth in 4 days 01/20/18 13:20 Blood - Peripheral Aerobic Blood Culture - Preliminary No growth in 4 days 01/20/18 13:20 Blood - Peripheral Anaerobic Blood Culture - Preliminary No growth in 4 days Assessment and Plan - Plan RESPIRATORY FAILURE cva cad respiratory failure post trach bilateral effusions minimal tube drainage plan o2 as needed CULTURES DONE PULM TOILET F/U CXRAY
[2018-01-25 10:25] LABS: INR 2.5 Ratio; Prothrombin Time 25.5 sec (9.8-11.6)
[2018-01-25 10:42] LABS: Albumin 1.1 g/dL (3.4-5.0); Anion Gap 8 meq/L (5-15); Aspartate Aminotransferase 89 U/L (15-37); Blood Urea Nitrogen 55 mg/dL (7-18); Calcium 7.5 mg/dL (8.5-10.1); Chloride 114 meq/L (98-107); Glomerular Filtration Rate 57 mL/min (>89); Glucose,Random 134 mg/dL (74-106); Potassium 4.4 meq/L (3.5-5.1); Sodium 143 meq/L (136-145)
[2018-01-25 10:43] LABS: Alanine Aminotransferase 70 U/L (12-78)
[2018-01-25 10:46] LABS: Alkaline Phosphatase 208 U/L (45-117); Total Protein 6.3 g/dL (6.4-8.2)
--- NOTE | 2018-01-25 11:02 | XR ---
EXAM DATE: 01/25/2018 10:55 AM EDT AGE/SEX: 77 years / Male INDICATIONS: COPD CLINICAL DATA: This is the patient's initial encounter. Patient reports that signs and symptoms have been present for 1 month and indicates a pain score of Nonresponsive. MEDICAL/SURGICAL HISTORY: Diabetes mellitus type II. Hypertension Coronary artery stent. right chest tube COMPARISON: [facility] – [place] CHEST 1V SINGLE AP, 01/22/2018. . FINDINGS: Tracheostomy tube again seen. There is mild patchy alveolar and interstitial prominence greatest at t he bases, slightly improved from previous. Cardiomegaly. No effusions. CONCLUSION: Slight improved aeration. Electronically signed by: Favio Brown MD 01/25/2018 11:01 AM EDT
--- NOTE | 2018-01-25 11:35 | P.PN ---
Physical Exam Vital signs: Vital Signs 01/24/18 12:00 01/24/18 16:00 01/24/18 19:45 Temperature 98.6 F 98.2 F Pulse Rate 102 H 96 H 95 H Respiratory Rate 24 24 18 Blood Pressure 101/61 103/56 L Pulse Oximetry 96 100 98 01/24/18 20:00 01/24/18 22:07 01/25/18 00:00 Temperature 97.9 F 98 F Pulse Rate 95 H 96 H Respiratory Rate 18 18 Blood Pressure 100/57 L 108/59 L Pulse Oximetry 98 98 97 01/25/18 02:29 01/25/18 04:00 01/25/18 08:00 Temperature 99.9 F H 99.3 F Pulse Rate 95 H 95 H 97 H Respiratory Rate 18 16 Blood Pressure 102/62 107/57 L Pulse Oximetry 97 99 01/25/18 08:46 01/25/18 11:00 Temperature Pulse Rate 96 H Respiratory Rate 20 16 Blood Pressure Pulse Oximetry 95 Intake & Output 01/24/18 01/25/18 01/25/18 18:59 06:59 18:59 Intake Total 1909 100 / 100 Output Total 500 / 500 Balance 1909 -400 / -400 Intake: IV 1100 / 1100 100 / 100 1/2 Normal Saline Inj 1,000 ML 1000 / 1000 @ 60 mls/hr IV.CONT .[id number] EDE Rx#:[id number] Merrem Inj 1,000 MG In NS Inj 100 / 100 100 / 100 100 ML @ 200 mls/hr IV.SIG Q12H EDE Rx#:[id number] Oral 250 / 250 Tube Feeding 60 / 60 Tube Irrigant 250 / 250 Water Bolus Amount 250 / 250 Output: Urine 500 / 500 Other: Date of Last Bowel Movement 01/24/18 01/24/18 Narrative: Subjective In the bed with PT Family requesting PT to come Patient doesnt interact. Family with hopes Physical Exam GENERAL: No acute distress, awake and alert SKIN: back with sacral decubitus- deep edges no necrotic tissue, debrided at bedside 01/20- by Dr. Upton NECK: Trach in place. CARDIOVASCULAR: Regular rate and rhythm without murmurs, gallops, or rubs. RESPIRATORY: Breath sounds equal bilaterally. No accessory muscle use. GASTROINTESTINAL: Abdomen soft, non-tender, nondistended. +PEG tube in place : Garcia in place- placed 01/21 MUSCULOSKELETAL: No cyanosis, or edema. NEURO: neuro status at baseline- unchanged Assessment and Plan This is a 77-year-old male who initially presented with vision changes with concern for optic neuritis versus temporal arteritis. Hospital course complicated by NSTEMI, E. coli urinary tract infection, rectal bleeding with acute anemia. He became lethargic, admitted to the intensive care unit and found to have CVA. CTA head and neck revealed atherosclerotic disease. After giving TPA, the patient had tonic-clonic seizure and became obtunded with acute hypoxic and hypercarbic respiratory failure, intubated. Patient was then transferred to the hospitalist service when patient was more stable. 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 Repeat MRI unchanged. Patient also had seizures, EEG showed diffuse encephalopathy. -Continue statin, Ritalin. After discussion patient's daughter, she would like to try to get the patient off Keppra and hopefully will improve his mental status. She is aware that there is risk for seizures. Follow while off Keppra. Neuropsychology following. Was on steroids for optic neuritis. Encephalopathy persists, no change in mental status, family continues to be aggressive in goals -restart coumadin- pharmacy ff . f INR ID REcurrent fever - spiked again Recurrent UTI-prior history of ESBL E. coli- new culture - 01/17- Pseudomonas Sacral decub with possible underlying infection, osteomyelitis. Fungemia- repeat cultures negative x 48 hours Possible Aspiration PNA - Sacral decub has eschar with possible underlying osteomyelitis. Patient family refused surgical sacral debridement after seen by plastic surgery. Wound care and Dr. Upton following. 12/31 Wound cx: ESBL E.coli -Garcia catheter changed 01/09/2018, Urine culture on 01/09 grew Pseudomonas pansensitive, -Status post ciprofloxacin and imipenem. Echocardiogram on 01/12, no vegetation. Ophthalmology has seen the patient, no fungal keratitis or fungal eye infection. - Repeat blood cultures still growing Xenia tropicalis, switched back to fluconazole per infectious disease. Still having fever, rechecked blood culture , repeat urinalysis still shows large leukocyte esterase and pyuria, leukocytosis increasing, CTT still in position with increased right-sided pleural effusion. - ID ff - Started on meropenem, and vancomycin. Continue Diflucan, once documented blood sterility, will continue fluconazole for at least 2 weeks whether oral or IV. Follow-up repeat blood culture. - FF up final urine cultures- 01/17- growing Pseudomonas - final s still pending - Blood cultures from 01/16 negative so far - restarted TF- tolerating well - wound care daily- per wound care team recommendations- S/P extensive bedside debridement 01/[address] Salazar - check CXR - no significant change, KUB- no acute findings Acute on chronic respiratory failure status post tracheostomy- currently on 28% T piece Bilateral Pleural effusion, with healthcare associated pneumonia - Pigtail catheters in place- left chest tube was removed 01/19 - right pigtail catheter still in place pleural fluid cultures negative consistent with transudative effusion. bronchodilators, pulmonary toilet. pulmonary following. Repeat chest x-ray- unchanged - minimal secretions - trach care- Acute renal failure on top of chronic kidney disease HYpernatremia- HYperkalemia - resolved -creatinine stabilizing ff UO and BMP - continue on 06/29 NS- Food Server ff. d/w staff- to give free water /PEG- reviewed EMR- not given - Kidney ultrasound unremarkable. - Nephrology ff - creatinine- stable - ff CMP in am Urinary retention - garcia placed 01/21 DM type 2 - A1C 9.6, BGs still high, - Levemir increased to 15 units twice a day on 01/17/2018, cont sliding scale insulin and adjust dose CHRONIC RESOLVED ISSUES: Scrotal Edema/ulcerations - seen by Urology: continue wcatheter as needed, scrotal elevation NSTEMI Echo 10/19: LV systolic function is moderately reduced, EF 40-45%. continue Coreg and statin. Anemia secondary to GI bleed- Status post EGD colonoscopy. GI has signed off, patient with healed rectal ulcers and hemorrhoids. Continue Pepcid. Vomiting x 1 episode last evening- 01/23 - TF held last evening- no residual - abdominal exam- beningn, soft with good bowel sounds -restart tube feeds-Glucerna 1.5 with start at 20 cc/hr and increase gradually every 4 hours camille powder packet bid - d/w staff nurse - if persisit will check XR - check CMP in am- LFTs GI prophylaxis- on Pepcid DVT prophylaxis-on coumadin- INR therapeutic - pharmacy dsoing 01/07 long discussion with patient's daughter - half-way plan- she says it's difficult for them to take her home- working - SNF- no insurance- patient here visiting from [place] when this unfortunate event happened seen with daughter at bedside- 01/23 - Urinary Catheter Management Straight Cath placed during this visit: yes Urethral indwelling: Yes Reason for continuing: Acute urinary retention Insertion date: 01/21/18 Insertion time: 08:00 Indwelling Urethral Catheter Cath placed during this visit: yes, but has since been removed by the nurse Urethral indwelling: Yes Reason for continuing: Not indwelling catheter Insertion date: 01/21/18 Insertion time: 16:18 Removal date: 01/20/18 Removal time: 15:15 Results - Labs CBC & Chem 7: 01/22/18 08:41 01/25/18 09:42 Laboratory Results - last 24 hr 01/24/18 01/24/18 01/25/18 13:34 16:24 00:12 PT INR Sodium Potassium Chloride Carbon Dioxide Anion Gap BUN Creatinine Estimated GFR POC Glucose 155 H 147 H 149 H Random Glucose Calcium Total Bilirubin AST ALT Alkaline Phosphatase Total Protein Albumin 01/25/18 01/25/18 01/25/18 07:05 09:16 09:42 PT INR Sodium 143 Potassium 4.4 Chloride 114 H Carbon Dioxide 21.0 Anion Gap 8 BUN 55 H Creatinine 1.22 Estimated GFR 57 L POC Glucose 153 H 154 H Random Glucose 134 H Calcium 7.5 L Total Bilirubin 0.2 AST 89 H ALT 70 Alkaline Phosphatase 208 H Total Protein 6.3 L Albumin 1.1 L 01/25/18 09:42 PT 25.5 H INR 2.5 Sodium Potassium Chloride Carbon Dioxide Anion Gap BUN Creatinine Estimated GFR POC Glucose Random Glucose Calcium Total Bilirubin AST ALT Alkaline Phosphatase Total Protein Albumin Microbiology 01/20/18 13:15 Blood - Peripheral Aerobic Blood Culture - Final No growth in 5 days 01/20/18 13:15 Blood - Peripheral Anaerobic Blood Culture - Final No growth in 5 days 01/20/18 13:20 Blood - Peripheral Aerobic Blood Culture - Final No growth in 5 days 01/20/18 13:20 Blood - Peripheral Anaerobic Blood Culture - Final No growth in 5 days 01/23/18 18:30 Sputum - Endotracheal Gram Stain - Final 01/23/18 18:30 Sputum - Endotracheal Sputum Culture - Preliminary gram negative rods 01/03/18 17:00 Fluid - Pleural fluid Fungal Smear - Final No fungal elements seen 01/03/18 17:00 Fluid - Pleural fluid Fungal Culture - Preliminary No growth in 3 weeks 01/03/18 17:00 Fluid - Pleural fluid Acid Fast Bacilli Smear - Final No acid fast bacilli seen 01/03/18 17:00 Fluid - Pleural fluid Mycobacterial Culture - Preliminary No growth in 3 weeks - Imaging Impressions Chest X-Ray 01/25/18 09:40 CONCLUSION: Slight improved aeration. Assessment and Plan - Assessment (1) Encephalopathy Code(s): G93.40 - Encephalopathy, unspecified Status: Acute (2) CVA (cerebral vascular accident) Code(s): I63.9 - Cerebral infarction, unspecified Status: Acute (3) Wound of sacral region Code(s): S31.000A - Unspecified open wound of lower back and pelvis without penetration into retroperitoneum, initial encounter Status: Acute (4) NSTEMI (non-ST elevated myocardial infarction) Code(s): I21.4 - Non-ST elevation (NSTEMI) myocardial infarction Status: Resolved (5) Anemia Code(s): D64.9 - Anemia, unspecified Status: Acute (6) Respiratory failure with hypoxia and hypercapnia Code(s): J96.91 - Respiratory failure, unspecified with hypoxia; J96.92 - Respiratory failure, unspecified with hypercapnia Status: Resolved (7) Optic neuritis Code(s): H46.9 - Unspecified optic neuritis Status: Resolved (5) Anemia Qualifiers: Anemia type: unspecified type Qualified Code(s): D64.9 - Anemia, unspecified
[2018-01-25] MEDS: Sodium Chloride 0.45 % Inj 1,000 ML IV.CONT SCH (16:38)
--- NOTE | 2018-01-25 16:40 | P.PNNP ---
Subjective Interval history: Condition unchanged. Trach and PEG. Creatinine is stable. <Oneida Goddard - Last Filed: 01/25/18 16:30> Physical Exam Vital signs: Vital Signs 01/24/18 19:45 01/24/18 20:00 01/24/18 22:07 Temperature 97.9 F Pulse Rate 95 H 95 H Respiratory Rate 18 18 Blood Pressure 100/57 L Pulse Oximetry 98 98 98 01/25/18 00:00 01/25/18 02:29 01/25/18 04:00 Temperature 98 F 99.9 F H Pulse Rate 96 H 95 H 95 H Respiratory Rate 18 18 Blood Pressure 108/59 L 102/62 Pulse Oximetry 97 97 01/25/18 08:00 01/25/18 08:46 01/25/18 11:00 Temperature 99.3 F Pulse Rate 97 H 96 H Respiratory Rate 16 20 16 Blood Pressure 107/57 L Pulse Oximetry 99 95 01/25/18 12:00 Temperature 98 F Pulse Rate 98 H Respiratory Rate 18 Blood Pressure 105/66 Pulse Oximetry 99 Intake & Output 01/24/18 01/25/18 01/25/18 18:59 06:59 18:59 Intake Total 1909 100 / 100 Output Total 500 / 500 Balance 1909 -400 / -400 Intake: IV 1100 / 1100 100 / 100 1/2 Normal Saline Inj 1,000 ML 1000 / 1000 @ 60 mls/hr IV.CONT .[id number] EDE Rx#:[id number] Merrem Inj 1,000 MG In NS Inj 100 / 100 100 / 100 100 ML @ 200 mls/hr IV.SIG Q12H EDE Rx#:[id number] Oral 250 / 250 Tube Feeding 60 / 60 Tube Irrigant 250 / 250 Water Bolus Amount 250 / 250 Output: Urine 500 / 500 Other: Date of Last Bowel Movement 01/24/18 01/24/18 - Constitutional no acute distress - Routine HEENT Exam Head: Present: normocephalic - Routine Neck Exam Absent: JVD Comments: Trach FiO2 at 28 % - Routine Respiratory Exam Present: decreased breath sounds, rhonchi. Absent: rales, wheezes - Routine Cardiovascular Exam Present: RRR Comments: Chest tube - Routine Abdominal Exam Present: soft, normoactive bowel sounds. Absent: tenderness Comments: PEG tube - Routine Exam Scrotal: Present: swelling - Routine Extremities Exam Present: edema - Routine Skin Exam Present: dry, warm - Urinary Catheter Management Straight Cath placed during this visit: yes Urethral indwelling: Yes Reason for continuing: Acute urinary retention Insertion date: 01/21/18 Insertion time: 08:00 Indwelling Urethral Catheter Cath placed during this visit: yes, but has since been removed by the nurse Urethral indwelling: Yes Reason for continuing: Not indwelling catheter Insertion date: 01/21/18 Insertion time: 16:18 Removal date: 01/20/18 Removal time: 15:15 <Oneida Goddard - Last Filed: 01/25/18 16:30> Vital signs: Vital Signs 01/24/18 19:45 01/24/18 20:00 01/24/18 22:07 Temperature 97.9 F Pulse Rate 95 H 95 H Respiratory Rate 18 18 Blood Pressure 100/57 L Pulse Oximetry 98 98 98 01/25/18 00:00 01/25/18 02:29 01/25/18 04:00 Temperature 98 F 99.9 F H Pulse Rate 96 H 95 H 95 H Respiratory Rate 18 18 Blood Pressure 108/59 L 102/62 Pulse Oximetry 97 97 01/25/18 08:00 01/25/18 08:46 01/25/18 11:00 Temperature 99.3 F Pulse Rate 97 H 96 H Respiratory Rate 16 20 16 Blood Pressure 107/57 L Pulse Oximetry 99 95 01/25/18 12:00 Temperature 98 F Pulse Rate 98 H Respiratory Rate 18 Blood Pressure 105/66 Pulse Oximetry 99 Intake & Output 01/24/18 01/25/18 01/25/18 18:59 06:59 18:59 Intake Total 1909 100 / 100 1100 / 1100 Output Total 500 / 500 Balance 1909 -400 / -400 1100 / 1100 Intake: IV 1100 / 1100 100 / 100 1100 / 1100 1/2 Normal Saline Inj 1,000 ML 1000 / 1000 1000 / 1000 @ 60 mls/hr IV.CONT .[id number] EDE Rx#:[id number] Merrem Inj 1,000 MG In NS Inj 100 / 100 100 / 100 100 / 100 100 ML @ 200 mls/hr IV.SIG Q12H EDE Rx#:[id number] Oral 250 / 250 Tube Feeding 60 / 60 Tube Irrigant 250 / 250 Water Bolus Amount 250 / 250 Output: Urine 500 / 500 Other: Date of Last Bowel Movement 01/24/18 01/24/18 - Urinary Catheter Management Straight Cath placed during this visit: no Indwelling Urethral Catheter Cath placed during this visit: no <Meagan Salas - Last Filed: 01/25/18 18:15> Assessment and Plan - Plan Acute kidney injury Creatinine has improved at 1.22 from 1.55 Avoid nephrotoxins Monitor BMP periodically. Hypernatremia Has resolved on 06/29 NS will discontinue Will add free water 200 ML every 4 hours <Oneida Goddard - Last Filed: 01/25/18 16:30> - Plan Patient seen and examined, agree with above. Creatinine is better. <Meagan Salas - Last Filed: 01/25/18 18:15>
[2018-01-26] MEDS: Insulin NovoLIN Regular Correctional Sugar Inj SQ SCH ×4 (00:33→19:50)
--- NOTE | 2018-01-26 08:11 | P.PN ---
Physical Exam Vital signs: Vital Signs 01/25/18 08:46 01/25/18 11:00 01/25/18 12:00 Temperature 98 F Pulse Rate 96 H 98 H Respiratory Rate 20 16 18 Blood Pressure 105/66 Pulse Oximetry 95 99 01/25/18 16:00 01/25/18 19:27 01/25/18 19:28 Temperature 97.9 F Pulse Rate 97 H 97 H Respiratory Rate 18 18 Blood Pressure 104/62 Pulse Oximetry 99 99 01/25/18 20:00 01/25/18 22:17 01/26/18 00:00 Temperature 98.1 F 98.7 F Pulse Rate 98 H 103 H Respiratory Rate 18 22 Blood Pressure 111/59 L 109/61 Pulse Oximetry 96 97 99 01/26/18 04:00 01/26/18 04:35 Temperature 98 F Pulse Rate 108 H 103 H Respiratory Rate 22 Blood Pressure 97/60 L Pulse Oximetry 97 Intake & Output 01/25/18 01/26/18 01/26/18 18:59 06:59 18:59 Intake Total 1783 / 1783 700 / 700 Output Total 1901 / 1901 480 / 480 Balance -118 / -118 220 / 220 Intake: IV 1100 / 1100 300 / 300 1/2 Normal Saline Inj 1,000 ML 1000 / 1000 @ 60 mls/hr IV.CONT .[id number] EDE Rx#:[id number] Diflucan 400 mg Premix Bag 200 200 / 200 ML @ 100 mls/hr IV.SIG Q24H EDE Rx#:[id number] Merrem Inj 1,000 MG In NS Inj 100 / 100 100 / 100 100 ML @ 200 mls/hr IV.SIG Q12H EDE Rx#:[id number] Oral 250 / 250 Tube Feeding 60 / 60 Water Bolus Amount 250 / 250 400 / 400 Other 123 / 123 Output: Urine 500 / 500 400 / 400 Stool 1 / 1 Urine Amount (Catheter) 1350 / 1350 Indwelling Urethral Catheter 750 / 750 Straight 600 / 600 Chest Tube Drainage 50 / 50 80 / 80 Right 50 / 50 Right Mid-Axillary Chest 50 / 50 30 / 30 Other: Post Void Residual 300 # Voids 2 # Incontinent Voids 0 Date of Last Bowel Movement 01/24/18 01/24/18 # Bowel Movements 1 # Incontinent Bowel Movements 1 Narrative: Subjective vomited x 1 time. KUB reassuring, CXR no worsening consolidation Physical Exam GENERAL: No acute distress, awake and alert SKIN: back with sacral decubitus- deep edges no necrotic tissue, debrided at bedside 01/20- by Dr. Upton NECK: Trach in place. CARDIOVASCULAR: Regular rate and rhythm without murmurs, gallops, or rubs. RESPIRATORY: Breath sounds equal bilaterally. No accessory muscle use. GASTROINTESTINAL: Abdomen soft, non-tender, nondistended. +PEG tube in place : Garcia in place- placed 01/21 MUSCULOSKELETAL: No cyanosis, or edema. NEURO: neuro status at baseline- unchanged Assessment and Plan This is a 77-year-old male who initially presented with vision changes with concern for optic neuritis versus temporal arteritis. Hospital course complicated by NSTEMI, E. coli urinary tract infection, rectal bleeding with acute anemia. He became lethargic, admitted to the intensive care unit and found to have CVA. CTA head and neck revealed atherosclerotic disease. After giving TPA, the patient had tonic-clonic seizure and became obtunded with acute hypoxic and hypercarbic respiratory failure, intubated. Patient was then transferred to the hospitalist service when patient was more stable. 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 Repeat MRI unchanged. Patient also had seizures, EEG showed diffuse encephalopathy. -Continue statin, Ritalin. After discussion patient's daughter, she would like to try to get the patient off Keppra and hopefully will improve his mental status. She is aware that there is risk for seizures. Follow while off Keppra. Neuropsychology following. Was on steroids for optic neuritis. Encephalopathy persists, no change in mental status, family continues to be aggressive in goals -restart coumadin- pharmacy ff . f INR ID REcurrent fever - spiked again Recurrent UTI-prior history of ESBL E. coli- new culture - 01/17- Pseudomonas Sacral decub with possible underlying infection, osteomyelitis. Fungemia- repeat cultures negative x 48 hours Possible Aspiration PNA - Sacral decub has eschar with possible underlying osteomyelitis. Patient family refused surgical sacral debridement after seen by plastic surgery. Wound care and Dr. Upton following. 12/31 Wound cx: ESBL E.coli -Garcia catheter changed 01/09/2018, Urine culture on 7/15 grew Pseudomonas pansensitive, -Status post ciprofloxacin and imipenem. Echocardiogram on 01/12, no vegetation. Ophthalmology has seen the patient, no fungal keratitis or fungal eye infection. - Repeat blood cultures still growing Xenia tropicalis, switched back to fluconazole per infectious disease. Still having fever, rechecked blood culture , repeat urinalysis still shows large leukocyte esterase and pyuria, leukocytosis increasing, CTT still in position with increased right-sided pleural effusion. - ID ff - Started on meropenem, and vancomycin. Continue Diflucan, once documented blood sterility, will continue fluconazole for at least 2 weeks whether oral or IV. Follow-up repeat blood culture. - FF up final urine cultures- 01/17- growing Pseudomonas - final s still pending - Blood cultures from 01/16 negative so far - restarted TF- tolerating well - wound care daily- per wound care team recommendations- S/P extensive bedside debridement 01/[address] Salazar - check CXR - no significant change, KUB- no acute findings Acute on chronic respiratory failure status post tracheostomy- currently on 28% T piece Bilateral Pleural effusion, with healthcare associated pneumonia - Pigtail catheters in place- left chest tube was removed 01/19 - right pigtail catheter still in place pleural fluid cultures negative consistent with transudative effusion. bronchodilators, pulmonary toilet. pulmonary following. Repeat chest x-ray- unchanged - minimal secretions - trach care- Acute renal failure on top of chronic kidney disease HYpernatremia- HYperkalemia - resolved -creatinine stabilizing ff UO and BMP - continue on 06/29 NS- Early Intervention Specialist ff. d/w staff- to give free water /PEG- reviewed EMR- not given - Kidney ultrasound unremarkable. - Nephrology ff - creatinine- stable - ff CMP in am Urinary retention - garcia placed 01/21 DM type 2 - A1C 9.6, BGs still high, - Levemir increased to 15 units twice a day on 01/17/2018, cont sliding scale insulin and adjust dose However the patient was vomited tube feeds on hols Hold levemir. KUB ordered non specific findings. CHRONIC RESOLVED ISSUES: Scrotal Edema/ulcerations - seen by Urology: continue wcatheter as needed, scrotal elevation NSTEMI Echo 10/19: LV systolic function is moderately reduced, EF 40-45%. continue Coreg and statin. Anemia secondary to GI bleed- Status post EGD colonoscopy. GI has signed off, patient with healed rectal ulcers and hemorrhoids. Continue Pepcid. Vomiting x 1 episode last evening- 01/23 - TF held last evening- no residual - abdominal exam- beningn, soft with good bowel sounds -restart tube feeds-Glucerna 1.5 with start at 20 cc/hr and increase gradually every 4 hours camille powder packet bid - d/w staff nurse - if persisit will check XR - check CMP in am- LFTs GI prophylaxis- on Pepcid DVT prophylaxis-on coumadin- INR therapeutic - pharmacy dsoing 01/07 per long discussion with patient's daughter - medical terminologist plan- she says it's difficult for them to take her home- working - SNF- no insurance- patient here visiting from [place] when this unfortunate event happened seen with daughter at bedside- - Urinary Catheter Management Straight Cath placed during this visit: yes Urethral indwelling: Yes Reason for continuing: Acute urinary retention Insertion date: 01/21/18 Insertion time: 08:00 Indwelling Urethral Catheter Cath placed during this visit: yes, but has since been removed by the nurse Urethral indwelling: Yes Reason for continuing: Acute urinary retention Insertion date: 01/21/18 Insertion time: 16:18 Removal date: 01/20/18 Removal time: 15:15 Results - Labs CBC & Chem 7: 01/22/18 08:41 01/26/18 20:35 Laboratory Results - last 24 hr 01/25/18 01/25/18 01/25/18 09:16 09:42 09:42 PT 25.5 H INR 2.5 Sodium 143 Potassium 4.4 Chloride 114 H Carbon Dioxide 21.0 Anion Gap 8 BUN 55 H Creatinine 1.22 Estimated GFR 57 L POC Glucose 154 H Random Glucose 134 H Calcium 7.5 L Total Bilirubin 0.2 AST 89 H ALT 70 Alkaline Phosphatase 208 H Total Protein 6.3 L Albumin 1.1 L 01/25/18 01/26/18 01/26/18 12:21 00:20 06:51 PT INR Sodium Potassium Chloride Carbon Dioxide Anion Gap BUN Creatinine Estimated GFR POC Glucose 139 H 180 H 143 H Random Glucose Calcium Total Bilirubin AST ALT Alkaline Phosphatase Total Protein Albumin Microbiology 01/23/18 18:30 Sputum - Endotracheal Gram Stain - Final 01/23/18 18:30 Sputum - Endotracheal Sputum Culture - Preliminary gram negative rods 01/04/18 12:45 Fluid - Pleural fluid Acid Fast Bacilli Smear - Final No acid fast bacilli seen 01/04/18 12:45 Fluid - Pleural fluid Mycobacterial Culture - Preliminary No growth in 3 weeks 01/20/18 13:15 Blood - Peripheral Aerobic Blood Culture - Final No growth in 5 days 01/20/18 13:15 Blood - Peripheral Anaerobic Blood Culture - Final No growth in 5 days 01/20/18 13:20 Blood - Peripheral Aerobic Blood Culture - Final No growth in 5 days 01/20/18 13:20 Blood - Peripheral Anaerobic Blood Culture - Final No growth in 5 days - Imaging Impressions Chest X-Ray 01/25/18 09:40 CONCLUSION: Slight improved aeration. Assessment and Plan - Assessment (1) Encephalopathy Code(s): G93.40 - Encephalopathy, unspecified Status: Acute (2) CVA (cerebral vascular accident) Code(s): I63.9 - Cerebral infarction, unspecified Status: Acute (3) Wound of sacral region Code(s): S31.000A - Unspecified open wound of lower back and pelvis without penetration into retroperitoneum, initial encounter Status: Acute (4) NSTEMI (non-ST elevated myocardial infarction) Code(s): I21.4 - Non-ST elevation (NSTEMI) myocardial infarction Status: Resolved (5) Anemia Code(s): D64.9 - Anemia, unspecified Status: Acute (6) Respiratory failure with hypoxia and hypercapnia Code(s): J96.91 - Respiratory failure, unspecified with hypoxia; J96.92 - Respiratory failure, unspecified with hypercapnia Status: Resolved (7) Optic neuritis Code(s): H46.9 - Unspecified optic neuritis Status: Resolved (5) Anemia Qualifiers: Anemia type: unspecified type Qualified Code(s): D64.9 - Anemia, unspecified
[2018-01-26] MEDS: Famotidine 20 MG Tablet PO SCH ×2 (09:23→20:55)
[2018-01-26] MEDS: Insulin Detemir Inj 1,000 UNIT/10 ML Vial SQ SCH ×2 (09:23→20:59)
[2018-01-26] MEDS: Hydrocortisone Acetate 25 MG Supp RECTAL SCH ×2 (09:24→20:56)
[2018-01-26] MEDS: Collagenase Oint 30 GM Tube TOPICAL SCH (09:24)
[2018-01-26] MEDS: Polyethylene Glycol 3350 17 GM Packet PO SCH (09:24)
--- NOTE | 2018-01-26 09:29 | XR ---
EXAM DATE: 01/26/2018 9:24 AM EDT AGE/SEX: 77 years / Male INDICATIONS: Cough. Evaluate for aspiration. CLINICAL DATA: This is the patient's subsequent encounter. Patient reports that signs and symptoms h ave been present for 1 week and indicates a pain score of Nonresponsive. MEDICAL/SURGICAL HISTORY: . Blind right eye. Diabetes. Cardiac stents x2. Left leg surgery. . [place] [facility] [place]25[place]. . FINDINGS: There is a moderate left effusion, pigtail catheter overlies the right lung base and patchy bilateral infiltrates are seen greatest in the left lower lobe, unchanged. Tracheostomy tube is noted. Cardiom egaly and degenerative changes of the spine. CONCLUSION: Stable appearance of the chest. Electronically signed by: Favio Brown MD 01/26/2018 9:28 AM EDT
--- NOTE | 2018-01-26 09:30 | XR ---
EXAM DATE: 01/26/2018 9:21 AM EDT AGE/SEX: 77 years / Male INDICATIONS: Abdominal distention. CLINICAL DATA: This is the patient's subsequent encounter. Patient reports that signs and symptoms h ave been present for 1 week and indicates a pain score of Nonresponsive. MEDICAL/SURGICAL HISTORY: . Blind right eye. Diabetes. Cardiac stents x2. Left leg surgery. . [place] [facility] [place] [place] KUB[place]. . FINDINGS: The abdominal bowel gas pattern is normal. No abnormal masses, calcifications, or organomegaly is s een. The osseous structures are unremarkable. Chest tube overlies the right lung base. Plate and screw fixation hardware across the left proximal f emur with remote fracture deformity at the trochanteric level. CONCLUSION: Nonobstructive bowel gas pattern. Electronically signed by: Favio Brown MD 01/26/2018 9:29 AM EDT
--- NOTE | 2018-01-26 10:41 | P.PNWCN ---
Wound Care Nurse Consult Description: Patient seen earlier with Doctor Upton for follow up of wound to sacrum Communicated with: Jeniffer VELOZ Recommendation: Per consult for assessment for physical therapy to place patient in sitting chair. 1.Patient is encouraged to work with physical therapy in sitting chair please limit sitting to 1 hour without Roho cushion,Patient can remain in chair up to 3 hours a Day if Roho cushion available. Wound/Pressure Injury - Patient Status Premedicated for Pain Prior to Dressing Change: No - Wound Right Lower Leg Wound Assessment: Ongoing Wound Type: Traumatic Wound Is This a Chronic Wound: Yes Length: 1.8 (cm) Width: 1.2 (cm) Depth: 0 (slough) Wound Bed Appearance: [place], Yellow Wound Bed Appearance: Wound bed presents with ~60% yellow adherent slough and ~40% pink tissue. Wound bed is moist with scant active sanguinous drainage. Surrounding Tissue Appearance: [place] Surrounding Tissue Temperature: Warm Drainage Description: Sanguinous Drainage Amount: Scant Drainage Odor: No Odor Dressing Status: Changed Cleansing Solution: Saline Topical: Enzymatic Debridement Ointment Wound Packing Type: Specialty Absorptive Primary Dressing: Optifoam basic Cover Dressing: Gauze Roll/Wrap Tape Type: Cloth Wound Dressing Change Date: 01/20/18 Wound Margin Description: Well defined and open Right Ankle Wound Assessment: Ongoing Wound Type: Traumatic Wound Is This a Chronic Wound: Yes Requested from Provider a Wound Care Consult: No Length: 0.6 (cm) Width: 0.4 (cm) Depth: 0 (slough) Wound Bed Appearance: [place], Yellow Wound Bed Appearance: Wound bed presents with ~80% yellow dry adherent slough and ~20% pink tissue Surrounding Tissue Appearance: [place] Surrounding Tissue Temperature: Warm Drainage Amount: None Drainage Odor: No Odor Dressing Status: Changed Cleansing Solution: Saline Topical: Enzymatic Debridement Ointment Wound Packing Type: Specialty Absorptive Primary Dressing: Optifoam basic Cover Dressing: Gauze Roll/Wrap Tape Type: Cloth Wound Dressing Change Date: 01/20/18 Sacrum Wound Staging: Unstageable Wound Assessment: Ongoing Wound Type: Pressure Injury Is This a Chronic Wound: Yes Requested from Provider a Wound Care Consult: No Length: 9.5 (cm) Width: 8 (cm) Depth: 0 (slough) Wound Bed Appearance: Necrotic, [place], Red, Yellow Wound Bed Appearance: Wound bed presents with an island of ~70% dry loosely adherent black eschar, ~10 % yellow slough and ~20% red tissue Surrounding Tissue Appearance: Erythema Surrounding Tissue Temperature: Warm Drainage Description: Serosanguinous Drainage Amount: Scant Drainage Odor: No Odor Dressing Status: Changed Cleansing Solution: Saline Topical: Enzymatic Debridement Ointment Wound Packing Type: Gauze Pads Primary Dressing: Gauze Pad Cover Dressing: bordered gauze Wound Dressing Change Date: 01/20/18 Wound Margin Description: Wound margins are well defined Scrotum Wound Assessment: Ongoing Wound Type: Abrasion Is This a Chronic Wound: Yes Requested from Provider a Wound Care Consult: Yes Wound Bed Appearance: [place] Surrounding Tissue Appearance: Erythema Surrounding Tissue Temperature: Warm Drainage Description: Serous Drainage Amount: None Drainage Odor: No Odor Dressing Status: Open to Air Cleansing Solution: Saline Topical: calazime Wound Dressing Change Date: 12/28/17 Right Calf Wound Assessment: Ongoing Wound Type: Abrasion Length: 2 Width: 2 Wound Bed Appearance: Necrotic, [place], Yellow Surrounding Tissue Appearance: [place] Surrounding Tissue Temperature: Warm Drainage Description: Purulent Drainage Amount: None Drainage Odor: No Odor Dressing Status: Open to Air Cleansing Solution: Saline Topical: Enzymatic Debridement Ointment Cover Dressing: Gauze Pads - Additional Information Patient seen earlier for follow up of sacral stage IV wound and other wounds to RLE noted above with Doctor Upton. Patient is has a trach and is non verbal but responds to commands from family member in the room by blinking eyes. Patient was turned to R side with the assistance of MAGDIEL cody.Bordered gauze to sacrum was removed, Vaseline gauze was then removed from wound bed to reveal wound. Wound bed presents initially with an island of ~70% black dry eschar that is now loosely adherent. Wound was cleansed with normal saline. Doctor Upton performed bedside sharp debridement of eschar with scissor. Eschar was removed to reveal wound bed that now presents with an island of ~60% moist yellow slough, ~20% red non granulation tissue and ~10% black eschar.Wound was cleansed with normal saline. Applied pepito thick coverage of Santyl ointment to wound bed with saline moistened gauze pads that were loosely packed in wound bed. Skin barrier film was applied to periwound before covering wound with bordered gauze.Patient was positioned off bottom with pillow in place for support. Assessed wounds to R lateral lower extremity. Wound descriptions and measurements are noted above. R lateral ankle and R lateral lower leg wounds were cleansed with normal saline and patted dry. Pepito thick coverage of Santyl ointment was applied with cotton swab. Covered both wounds with Optifoam basic cut to fit over wound beds and secured dressings with rolled gauze and tape. Incision - Patient Status Premedicated for Pain Prior to Dressing Change: No
[2018-01-26 12:42] LABS: INR 2.4 Ratio; Prothrombin Time 24.7 sec (9.8-11.6)
[2018-01-26 12:48] LABS: Albumin 1.2 g/dL (3.4-5.0); Anion Gap 9 meq/L (5-15); Aspartate Aminotransferase 116 U/L (15-37); Blood Urea Nitrogen 51 mg/dL (7-18); Calcium 7.6 mg/dL (8.5-10.1); Carbon Dioxide 21.7 meq/L (21.0-32.0); Chloride 114 meq/L (98-107); Glomerular Filtration Rate 54 mL/min (>89); Glucose,Random 119 mg/dL (74-106); Potassium 4.6 meq/L (3.5-5.1); Sodium 145 meq/L (136-145)
[2018-01-26 12:52] LABS: Alanine Aminotransferase 78 U/L (12-78); Alkaline Phosphatase 239 U/L (45-117); Total Protein 6.3 g/dL (6.4-8.2)
[2018-01-26] MEDS: Acetaminophen 325 MG Tablet PO PRN (14:54)
--- NOTE | 2018-01-26 15:09 | P.DIET ---
Nutritional Evaluation Type of nutrition evaluation: follow-up Nutrition consult regarding: Tube Feeding Nutrition screening: Pressure Injury, [facility] [place] (01/26 reevaluate tube feedings as patient is vomiting) Objective - Diagnosis Optic Neuritis - Objective % IBW: 114 (MWS=[id number]#) Body Weight Used for Calculations: Actual (79.6kg) Energy Needs - Lower Range (kCal/kg): 30 Energy Needs - Upper Range (kCal/kg): 35 Lower Limit kCal/kg (kCals): 2,388 Upper Limit kCal/kg (kCals): 2,786 Lower Limit Protein Factor (Grams per Kg): 1.3 Upper Limit Protein Factor (Grams per Kg): 1.6 Lower Protein Needs (Protein): 103 Upper Protein Needs (Protein): 127 Fluid Factor (ml/kg): 30 Estimated Fluid Needs (ml): 2,388 Dietitian Reviewed in Medical Record: Curent medications, Intake & Output, Labs , Tube feeding, Wound/DTI Diet Order: TF Only Wound Care Note: WOCN dated 01/26: sacrum pressure injury-unstageable Feeding - Current Tube Feeding Tube Feeding Product: Glucerna 1.5 (on hold) Assessment Assessment: Consult d/t vomiting acknowledged. No emesis recorded in I/O section since . Pt has KUB which indicates "nonobstructive bowel gas pattern". Pt may benefit from the addition of a prokinetic agent such as Reglan if vomiting continues. If an alternate formula is still desired, recommend Vital 1.5 @ 65 mls/hr to provide 2340 kcals, 105 gms protein and 1192 mls of free water, but please note that insulin may need to be adjusted if formula is changed. Recommendations: Consider prokinetic agent if not contraindicated For Tf change: Vital 1.5 @ 65 mls/hr goal Dietitian to Monitor: Lab values, Intake & Output, Tube feeding tolerance, Weight change, Wound/skin status, Medical course
--- NOTE | 2018-01-26 20:00 | P.PN ---
Subjective Interval history: NO CHANGE OPENS EYES AT TIMES Physical Exam Vital signs: Vital Signs 01/25/18 20:00 01/25/18 22:17 01/26/18 00:00 Temperature 98.1 F 98.7 F Pulse Rate 98 H 103 H Respiratory Rate 18 22 Blood Pressure 111/59 L 109/61 Pulse Oximetry 96 97 99 01/26/18 04:00 01/26/18 04:35 01/26/18 08:00 Temperature 98 F 98.6 F Pulse Rate 108 H 103 H 109 H Respiratory Rate 22 21 Blood Pressure 97/60 L 115/65 Pulse Oximetry 97 96 01/26/18 08:41 01/26/18 12:00 01/26/18 16:00 Temperature 101.4 F H 100.3 F H Pulse Rate 108 H 100 H 101 H Respiratory Rate 18 18 18 Blood Pressure 114/61 116/58 L Pulse Oximetry 95 98 97 01/26/18 19:00 Temperature Pulse Rate Respiratory Rate Blood Pressure Pulse Oximetry 97 Intake & Output 01/26/18 01/26/18 01/27/18 06:59 18:59 06:59 Intake Total 700 / 700 100 / 100 Output Total 480 / 480 360 / 360 Balance 220 / 220 -360 / -360 100 / 100 Intake: IV 300 / 300 100 / 100 Diflucan 400 mg Premix Bag 200 200 / 200 ML @ 100 mls/hr IV.SIG Q24H EDE Rx#:[id number] Merrem Inj 1,000 MG In NS Inj 100 / 100 100 / 100 100 ML @ 200 mls/hr IV.SIG Q12H EDE Rx#:[id number] Water Bolus Amount 400 / 400 Output: Urine 400 / 400 Chest Tube Drainage 80 / 80 360 / 360 Right 50 / 50 360 / 360 Right Mid-Axillary Chest Other: Date of Last Bowel Movement 01/24/18 01/25/18 Narrative: Subjective In the bed with PT Family requesting PT to come Patient doesnt interact. Family with hopes Physical Exam GENERAL: No acute distress, awake and alert SKIN: back with sacral decubitus- deep edges no necrotic tissue, debrided at bedside 01/20- by Dr. Upton NECK: Trach in place. CARDIOVASCULAR: Regular rate and rhythm without murmurs, gallops, or rubs. RESPIRATORY: Breath sounds equal bilaterally. No accessory muscle use. GASTROINTESTINAL: Abdomen soft, non-tender, nondistended. +PEG tube in place : Garcia in place- placed 01/21 MUSCULOSKELETAL: No cyanosis, or edema. NEURO: neuro status at baseline- unchanged Assessment and Plan This is a 77-year-old male who initially presented with vision changes with concern for optic neuritis versus temporal arteritis. Hospital course complicated by NSTEMI, E. coli urinary tract infection, rectal bleeding with acute anemia. He became lethargic, admitted to the intensive care unit and found to have CVA. CTA head and neck revealed atherosclerotic disease. After giving TPA, the patient had tonic-clonic seizure and became obtunded with acute hypoxic and hypercarbic respiratory failure, intubated. Patient was then transferred to the hospitalist service when patient was more stable. 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 Repeat MRI unchanged. Patient also had seizures, EEG showed diffuse encephalopathy. -Continue statin, Ritalin. After discussion patient's daughter, she would like to try to get the patient off Keppra and hopefully will improve his mental status. She is aware that there is risk for seizures. Follow while off Keppra. Neuropsychology following. Was on steroids for optic neuritis. Encephalopathy persists, no change in mental status, family continues to be aggressive in goals -restart coumadin- pharmacy ff . f INR ID REcurrent fever - spiked again Recurrent UTI-prior history of ESBL E. coli- new culture - 01/17- Pseudomonas Sacral decub with possible underlying infection, osteomyelitis. Fungemia- repeat cultures negative x 48 hours Possible Aspiration PNA - Sacral decub has eschar with possible underlying osteomyelitis. Patient family refused surgical sacral debridement after seen by plastic surgery. Wound care and Dr. Upton following. 12/31 Wound cx: ESBL E.coli -Garcia catheter changed 01/09/2018, Urine culture on 01/09 grew Pseudomonas pansensitive, -Status post ciprofloxacin and imipenem. Echocardiogram on 01/12, no vegetation. Ophthalmology has seen the patient, no fungal keratitis or fungal eye infection. - Repeat blood cultures still growing Xenia tropicalis, switched back to fluconazole per infectious disease. Still having fever, rechecked blood culture , repeat urinalysis still shows large leukocyte esterase and pyuria, leukocytosis increasing, CTT still in position with increased right-sided pleural effusion. - ID ff - Started on meropenem, and vancomycin. Continue Diflucan, once documented blood sterility, will continue fluconazole for at least 2 weeks whether oral or IV. Follow-up repeat blood culture. - FF up final urine cultures- 01/17- growing Pseudomonas - final s still pending - Blood cultures from 01/16 negative so far - restarted TF- tolerating well - wound care daily- per wound care team recommendations- S/P extensive bedside debridement 01/[address] Salazar - check CXR - no significant change, KUB- no acute findings Acute on chronic respiratory failure status post tracheostomy- currently on 28% T piece Bilateral Pleural effusion, with healthcare associated pneumonia - Pigtail catheters in place- left chest tube was removed 01/19 - right pigtail catheter still in place pleural fluid cultures negative consistent with transudative effusion. bronchodilators, pulmonary toilet. pulmonary following. Repeat chest x-ray- unchanged - minimal secretions - trach care- Acute renal failure on top of chronic kidney disease HYpernatremia- HYperkalemia - resolved -creatinine stabilizing ff UO and BMP - continue on 06/29 NS- Bone Char Operator ff. d/w staff- to give free water /PEG- reviewed EMR- not given - Kidney ultrasound unremarkable. - Nephrology ff - creatinine- stable - ff CMP in am Urinary retention - garcia placed 01/21 DM type 2 - A1C 9.6, BGs still high, - Levemir increased to 15 units twice a day on 01/17/2018, cont sliding scale insulin and adjust dose CHRONIC RESOLVED ISSUES: Scrotal Edema/ulcerations - seen by Urology: continue wcatheter as needed, scrotal elevation NSTEMI Echo 10/19: LV systolic function is moderately reduced, EF 40-45%. continue Coreg and statin. Anemia secondary to GI bleed- Status post EGD colonoscopy. GI has signed off, patient with healed rectal ulcers and hemorrhoids. Continue Pepcid. Vomiting x 1 episode last evening- 01/23 - TF held last evening- no residual - abdominal exam- beningn, soft with good bowel sounds -restart tube feeds-Glucerna 1.5 with start at 20 cc/hr and increase gradually every 4 hours camille powder packet bid - d/w staff nurse - if persisit will check XR - check CMP in am- LFTs GI prophylaxis- on Pepcid DVT prophylaxis-on coumadin- INR therapeutic - pharmacy dsoing 01/07 long discussion with patient's daughter - jail plan- she says it's difficult for them to take her home- working - SNF- no insurance- patient here visiting from [place] when this unfortunate event happened seen with daughter at bedside- 01/23 - Urinary Catheter Management Straight Cath placed during this visit: yes Urethral indwelling: Yes Reason for continuing: Acute urinary retention Insertion date: 01/21/18 Insertion time: 08:00 Indwelling Urethral Catheter Cath placed during this visit: yes, but has since been removed by the nurse Urethral indwelling: Yes Reason for continuing: Acute urinary retention Insertion date: 01/21/18 Insertion time: 16:18 Removal date: 01/20/18 Removal time: 15:15 Results - Labs CBC & Chem 7: 01/22/18 08:41 01/26/18 11:35 Laboratory Results - last 24 hr 01/26/18 01/26/18 01/26/18 00:20 06:51 11:35 PT 24.7 H INR 2.4 Sodium Potassium Chloride Carbon Dioxide Anion Gap BUN Creatinine Estimated GFR POC Glucose 180 H 143 H Random Glucose Calcium Total Bilirubin AST ALT Alkaline Phosphatase Total Protein Albumin 01/26/18 01/26/18 01/26/18 11:35 13:12 18:09 PT INR Sodium 145 Potassium 4.6 Chloride 114 H Carbon Dioxide 21.7 Anion Gap 9 BUN 51 H Creatinine 1.29 Estimated GFR 54 L POC Glucose 134 H 132 H Random Glucose 119 H Calcium 7.6 L Total Bilirubin 0.2 AST 116 H ALT 78 Alkaline Phosphatase 239 H Total Protein 6.3 L Albumin 1.2 L Microbiology 01/26/18 09:16 Sputum - Tracheal Aspirate Gram Stain - Final 01/23/18 18:30 Sputum - Endotracheal Gram Stain - Final 01/23/18 18:30 Sputum - Endotracheal Sputum Culture - Preliminary gram negative rods - Imaging Impressions Abdomen X-Ray 01/26/18 00:00 CONCLUSION: Nonobstructive bowel gas pattern. Chest X-Ray 01/26/18 00:00 CONCLUSION: Stable appearance of the chest. Assessment and Plan - Plan RESPIRATORY FAILURE cva cad respiratory failure post trach bilateral effusions minimal tube drainage plan o2 as needed PULM TOILET
[2018-01-26 21:31] LABS: Alanine Aminotransferase 69 U/L (12-78); Albumin 1.2 g/dL (3.4-5.0); Anion Gap 8 meq/L (5-15); Aspartate Aminotransferase 86 U/L (15-37); Blood Urea Nitrogen 49 mg/dL (7-18); Calcium 7.5 mg/dL (8.5-10.1); Carbon Dioxide 22.4 meq/L (21.0-32.0); Chloride 116 meq/L (98-107); Glomerular Filtration Rate 57 mL/min (>89); Glucose,Random 110 mg/dL (74-106); Potassium 4.5 meq/L (3.5-5.1); Sodium 146 meq/L (136-145)
[2018-01-26 21:34] LABS: Alkaline Phosphatase 225 U/L (45-117); Total Protein 6.5 g/dL (6.4-8.2)
[2018-01-27] MEDS: Insulin NovoLIN Regular Correctional Sugar Inj SQ SCH ×4 (00:12→18:42)
[2018-01-27 06:25] LABS: Bacteria,Urine Rare /hpf; Bilirubin,Urine Negative (Negative); Clarity,Urine Clear (Clear); Color,Urine Yellow (Yellw/Straw); Glucose,Urine (UA) Negative (Negative); Leukocyte Esterase,Urine Negative (Negative); Mucus,Urine Few /lpf (Occasional); Nitrite,Urine Negative (Negative); Specific Gravity,Urine 1.012 (1.002-1.035)
[2018-01-27 07:23] LABS: Baso # (Auto) 0.1 th/mm3 (0.0-0.2); Baso % (Auto) 1.3 % (0.0-2.0); Eos # (Auto) 0.2 th/mm3 (0.0-0.4); Eos % (Auto) 2.4 % (0.0-4.0); Hematocrit 24.4 % (39.0-51.0); Hemoglobin 7.6 gm/dL (13.0-17.0); Lymph % (Auto) 43.2 % (9.0-44.0); Mean Corpuscular HGB Conc 31.3 % (32.0-36.0); Mean Corpuscular Hemoglobin 27.4 pg (27.0-34.0); Mean Corpuscular Volume 87.6 fL (80.0-100.0); Mean Platelet Volume 8.2 fL (7.0-11.0); Mono # (Auto) 0.7 th/mm3 (0.0-0.9); Mono % (Auto) 7.2 % (0.0-8.0); Neut # (Auto) 4.2 th/mm3 (1.8-7.7); Neut % (Auto) 45.9 % (16.0-70.0); Platelet Count 431 th/mm3 (150-450); Red Blood Count 2.78 mil/mm3 (4.50-5.90); Red Cell Distribution Width 19.5 % (11.6-17.2); White Blood Count 9.2 th/mm3 (4.0-11.0)
[2018-01-27 07:30] LABS: INR 2.4 Ratio; Prothrombin Time 24.6 sec (9.8-11.6)
[2018-01-27 08:11] LABS: Calcium 7.6 mg/dL (8.5-10.1); Potassium 4.4 meq/L (3.5-5.1)
[2018-01-27] MEDS: Polyethylene Glycol 3350 17 GM Packet PO SCH (08:28)
[2018-01-27] MEDS: Hydrocortisone Acetate 25 MG Supp RECTAL SCH ×2 (08:29→22:34)
[2018-01-27] MEDS: Famotidine 20 MG Tablet PO SCH ×2 (08:29→22:33)
--- NOTE | 2018-01-27 09:13 | P.PN ---
Subjective Interval history: OPENS EYES NO DISTRESS Physical Exam Vital signs: Vital Signs 01/26/18 12:00 01/26/18 16:00 01/26/18 19:00 Temperature 101.4 F H 100.3 F H Pulse Rate 100 H 101 H Respiratory Rate 18 18 Blood Pressure 114/61 116/58 L Pulse Oximetry 98 97 97 01/26/18 21:04 01/26/18 21:40 01/27/18 01:00 Temperature 99.3 F 99 F Pulse Rate 101 H 101 H 98 H Respiratory Rate 18 19 20 Blood Pressure 115/58 L 120/60 Pulse Oximetry 97 100 100 01/27/18 01:09 01/27/18 04:06 01/27/18 06:00 Temperature 99 F Pulse Rate 107 H Respiratory Rate 17 Blood Pressure 115/63 Pulse Oximetry 97 96 100 01/27/18 08:00 Temperature Pulse Rate Respiratory Rate Blood Pressure Pulse Oximetry 98 Intake & Output 01/26/18 01/27/18 01/27/18 18:59 06:59 18:59 Intake Total 100 / 100 Output Total 360 / 360 2100 / 2100 Balance -360 / -360 -1999 / -1999 Weight 79 kg Intake: IV 100 / 100 Merrem Inj 1,000 MG In NS Inj 100 / 100 100 ML @ 200 mls/hr IV.SIG Q12H EDE Rx#:[id number] Oral 0 / 0 Output: Urine 2099 / 2100 Chest Tube Drainage 360 / 360 0 / 0 Right 360 / 360 0 / 0 Other: Date of Last Bowel Movement 01/25/18 # Bowel Movements 0 # Incontinent Bowel Movements 0 Narrative: Subjective vomited x 1 time. KUB reassuring, CXR no worsening consolidation Physical Exam GENERAL: No acute distress, awake and alert SKIN: back with sacral decubitus- deep edges no necrotic tissue, debrided at bedside 01/20- by Dr. Upton NECK: Trach in place. CARDIOVASCULAR: Regular rate and rhythm without murmurs, gallops, or rubs. RESPIRATORY: Breath sounds equal bilaterally. No accessory muscle use. GASTROINTESTINAL: Abdomen soft, non-tender, nondistended. +PEG tube in place : Garcia in place- placed 01/21 MUSCULOSKELETAL: No cyanosis, or edema. NEURO: neuro status at baseline- unchanged Assessment and Plan This is a 77-year-old male who initially presented with vision changes with concern for optic neuritis versus temporal arteritis. Hospital course complicated by NSTEMI, E. coli urinary tract infection, rectal bleeding with acute anemia. He became lethargic, admitted to the intensive care unit and found to have CVA. CTA head and neck revealed atherosclerotic disease. After giving TPA, the patient had tonic-clonic seizure and became obtunded with acute hypoxic and hypercarbic respiratory failure, intubated. Patient was then transferred to the hospitalist service when patient was more stable. 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 Repeat MRI unchanged. Patient also had seizures, EEG showed diffuse encephalopathy. -Continue statin, Ritalin. After discussion patient's daughter, she would like to try to get the patient off Keppra and hopefully will improve his mental status. She is aware that there is risk for seizures. Follow while off Keppra. Neuropsychology following. Was on steroids for optic neuritis. Encephalopathy persists, no change in mental status, family continues to be aggressive in goals -restart coumadin- pharmacy ff . f INR ID REcurrent fever - spiked again Recurrent UTI-prior history of ESBL E. coli- new culture - 01/17- Pseudomonas Sacral decub with possible underlying infection, osteomyelitis. Fungemia- repeat cultures negative x 48 hours Possible Aspiration PNA - Sacral decub has eschar with possible underlying osteomyelitis. Patient family refused surgical sacral debridement after seen by plastic surgery. Wound care and Dr. Upton following. 12/31 Wound cx: ESBL E.coli -Garcia catheter changed 01/09/2018, Urine culture on 01/09 grew Pseudomonas pansensitive, -Status post ciprofloxacin and imipenem. Echocardiogram on 01/12, no vegetation. Ophthalmology has seen the patient, no fungal keratitis or fungal eye infection. - Repeat blood cultures still growing Xenia tropicalis, switched back to fluconazole per infectious disease. Still having fever, rechecked blood culture , repeat urinalysis still shows large leukocyte esterase and pyuria, leukocytosis increasing, CTT still in position with increased right-sided pleural effusion. - ID ff - Started on meropenem, and vancomycin. Continue Diflucan, once documented blood sterility, will continue fluconazole for at least 2 weeks whether oral or IV. Follow-up repeat blood culture. - FF up final urine cultures- 01/17- growing Pseudomonas - final s still pending - Blood cultures from 01/16 negative so far - restarted TF- tolerating well - wound care daily- per wound care team recommendations- S/P extensive bedside debridement 01/[address] Salazar - check CXR - no significant change, KUB- no acute findings Acute on chronic respiratory failure status post tracheostomy- currently on 28% T piece Bilateral Pleural effusion, with healthcare associated pneumonia - Pigtail catheters in place- left chest tube was removed 01/19 - right pigtail catheter still in place pleural fluid cultures negative consistent with transudative effusion. bronchodilators, pulmonary toilet. pulmonary following. Repeat chest x-ray- unchanged - minimal secretions - trach care- Acute renal failure on top of chronic kidney disease HYpernatremia- HYperkalemia - resolved -creatinine stabilizing ff UO and BMP - continue on 06/29 NS- Occupational Therapy Department Chair ff. d/w staff- to give free water /PEG- reviewed EMR- not given - Kidney ultrasound unremarkable. - Nephrology ff - creatinine- stable - ff CMP in am Urinary retention - garcia placed 01/21 DM type 2 - A1C 9.6, BGs still high, - Levemir increased to 15 units twice a day on 01/17/2018, cont sliding scale insulin and adjust dose However the patient was vomited tube feeds on hols Hold levemir. KUB ordered non specific findings. CHRONIC RESOLVED ISSUES: Scrotal Edema/ulcerations - seen by Urology: continue wcatheter as needed, scrotal elevation NSTEMI Echo 10/19: LV systolic function is moderately reduced, EF 40-45%. continue Coreg and statin. Anemia secondary to GI bleed- Status post EGD colonoscopy. GI has signed off, patient with healed rectal ulcers and hemorrhoids. Continue Pepcid. Vomiting x 1 episode last evening- 01/23 - TF held last evening- no residual - abdominal exam- beningn, soft with good bowel sounds -restart tube feeds-Glucerna 1.5 with start at 20 cc/hr and increase gradually every 4 hours camille powder packet bid - d/w staff nurse - if persisit will check XR - check CMP in am- LFTs GI prophylaxis- on Pepcid DVT prophylaxis-on coumadin- INR therapeutic - pharmacy dsoing 01/07 per long discussion with patient's daughter - snf plan- she says it's difficult for them to take her home- working - SNF- no insurance- patient here visiting from [place] when this unfortunate event happened seen with daughter at bedside- - Urinary Catheter Management Straight Cath placed during this visit: yes Urethral indwelling: Yes Reason for continuing: Acute urinary retention Insertion date: 01/21/18 Insertion time: 08:00 Indwelling Urethral Catheter Cath placed during this visit: yes, but has since been removed by the nurse Urethral indwelling: Yes Reason for continuing: Acute urinary retention Insertion date: 01/21/18 Insertion time: 16:18 Removal date: 01/20/18 Removal time: 15:15 Results - Labs CBC & Chem 7: 01/27/18 07:02 01/27/18 07:02 Laboratory Results - last 24 hr 01/26/18 01/26/18 01/26/18 11:35 11:35 13:12 WBC RBC Hgb Hct MCV MCH MCHC RDW Plt Count MPV Neut % (Auto) Lymph % (Auto) Price % (Auto) Eos % (Auto) Baso % (Auto) Neut # (Auto) Lymph # (Auto) Price # (Auto) Eos # (Auto) Baso # (Auto) WBC Differential Differential Comment PT 24.7 H INR 2.4 Sodium 145 Potassium 4.6 Chloride 114 H Carbon Dioxide 21.7 Anion Gap 9 BUN 51 H Creatinine 1.29 Estimated GFR 54 L POC Glucose 134 H Random Glucose 119 H Calcium 7.6 L Total Bilirubin 0.2 AST 116 H ALT 78 Alkaline Phosphatase 239 H Total Protein 6.3 L Albumin 1.2 L Urine Color Urine Clarity Urine pH Ur Specific [place] Urine Protein Urine Glucose (UA) Urine Ketones Urine Occult Blood Urine Nitrate Urine Bilirubin Urine Urobilinogen Ur Leukocyte Esterase Urine RBC Urine WBC Urine Bacteria Urine Mucus Micro UA Comment Urine Culture Comments 01/26/18 01/26/18 01/26/18 18:09 20:35 20:57 WBC RBC Hgb Hct MCV MCH MCHC RDW Plt Count MPV Neut % (Auto) Lymph % (Auto) Price % (Auto) Eos % (Auto) Baso % (Auto) Neut # (Auto) Lymph # (Auto) Price # (Auto) Eos # (Auto) Baso # (Auto) WBC Differential Differential Comment PT INR Sodium 146 H Potassium 4.5 Chloride 116 H Carbon Dioxide 22.4 Anion Gap 8 BUN 49 H Creatinine 1.23 Estimated GFR 57 L POC Glucose 132 H 135 H Random Glucose 110 H Calcium 7.5 L Total Bilirubin 0.3 AST 86 H ALT 69 Alkaline Phosphatase 225 H Total Protein 6.5 Albumin 1.2 L Urine Color Urine Clarity Urine pH Ur Specific [place] Urine Protein Urine Glucose (UA) Urine Ketones Urine Occult Blood Urine Nitrate Urine Bilirubin Urine Urobilinogen Ur Leukocyte Esterase Urine RBC Urine WBC Urine Bacteria Urine Mucus Micro UA Comment Urine Culture Comments 01/27/18 01/27/18 01/27/18 00:12 05:30 06:00 WBC RBC Hgb Hct MCV MCH MCHC RDW Plt Count MPV Neut % (Auto) Lymph % (Auto) Price % (Auto) Eos % (Auto) Baso % (Auto) Neut # (Auto) Lymph # (Auto) Price # (Auto) Eos # (Auto) Baso # (Auto) WBC Differential Differential Comment PT INR Sodium Potassium Chloride Carbon Dioxide Anion Gap BUN Creatinine Estimated GFR POC Glucose 142 H 127 H Random Glucose Calcium Total Bilirubin AST ALT Alkaline Phosphatase Total Protein Albumin Urine Color Yellow Urine Clarity Clear Urine pH 6.0 Ur Specific [place] 1.012 Urine Protein 30 H Urine Glucose (UA) Negative Urine Ketones Negative Urine Occult Blood Small H Urine Nitrate Negative Urine Bilirubin Negative Urine Urobilinogen Less than 2 Ur Leukocyte Esterase Negative Urine RBC 1 Urine WBC 4 Urine Bacteria Rare H Urine Mucus Few H Micro UA Comment Cath-culture ind Urine Culture Comments Cath-cult indicated 01/27/18 01/27/18 01/27/18 07:02 07:02 07:02 WBC 9.2 RBC 2.78 L Hgb 7.6 L Hct 24.4 L MCV 87.6 MCH 27.4 MCHC 31.3 L RDW 19.5 H Plt Count 431 MPV 8.2 Neut % (Auto) 45.9 Lymph % (Auto) 43.2 Price % (Auto) 7.2 Eos % (Auto) 2.4 Baso % (Auto) 1.3 Neut # (Auto) 4.2 Lymph # (Auto) 4.0 Price # (Auto) 0.7 Eos # (Auto) 0.2 Baso # (Auto) 0.1 WBC Differential . Differential Comment Auto diff final PT 24.6 H INR 2.4 Sodium 147 H Potassium 4.4 Chloride 117 H Carbon Dioxide 24.0 Anion Gap 6 BUN 48 H Creatinine 1.19 Estimated GFR 59 L POC Glucose Random Glucose 118 H Calcium 7.6 L Total Bilirubin AST ALT Alkaline Phosphatase Total Protein Albumin Urine Color Urine Clarity Urine pH Ur Specific [place] Urine Protein Urine Glucose (UA) Urine Ketones Urine Occult Blood Urine Nitrate Urine Bilirubin Urine Urobilinogen Ur Leukocyte Esterase Urine RBC Urine WBC Urine Bacteria Urine Mucus Micro UA Comment Urine Culture Comments 01/27/18 08:38 WBC RBC Hgb Hct MCV MCH MCHC RDW Plt Count MPV Neut % (Auto) Lymph % (Auto) Price % (Auto) Eos % (Auto) Baso % (Auto) Neut # (Auto) Lymph # (Auto) Price # (Auto) Eos # (Auto) Baso # (Auto) WBC Differential Differential Comment PT INR Sodium Potassium Chloride Carbon Dioxide Anion Gap BUN Creatinine Estimated GFR POC Glucose 131 H Random Glucose Calcium Total Bilirubin AST ALT Alkaline Phosphatase Total Protein Albumin Urine Color Urine Clarity Urine pH Ur Specific [place] Urine Protein Urine Glucose (UA) Urine Ketones Urine Occult Blood Urine Nitrate Urine Bilirubin Urine Urobilinogen Ur Leukocyte Esterase Urine RBC Urine WBC Urine Bacteria Urine Mucus Micro UA Comment Urine Culture Comments Microbiology 01/23/18 18:30 Sputum - Endotracheal Gram Stain - Final 01/23/18 18:30 Sputum - Endotracheal Sputum Culture - Final Stenotrophomonas maltophilia 01/26/18 09:16 Sputum - Tracheal Aspirate Gram Stain - Final - Imaging Impressions Abdomen X-Ray 01/26/18 00:00 CONCLUSION: Nonobstructive bowel gas pattern. Chest X-Ray 01/26/18 00:00 CONCLUSION: Stable appearance of the chest. Assessment and Plan - Plan RESPIRATORY FAILURE cva cad respiratory failure post trach bilateral effusions plan o2 as needed PULM TOILET
--- NOTE | 2018-01-27 10:12 | P.PNNP ---
Subjective Interval history: Condition unchanged. Sleeping, trach and PEG. <Oneida Goddard - Last Filed: 01/27/18 10:09> Physical Exam Vital signs: Vital Signs 01/26/18 12:00 01/26/18 16:00 01/26/18 19:00 Temperature 101.4 F H 100.3 F H Pulse Rate 100 H 101 H Respiratory Rate 18 18 Blood Pressure 114/61 116/58 L Pulse Oximetry 98 97 97 01/26/18 21:04 01/26/18 21:40 01/27/18 01:00 Temperature 99.3 F 99 F Pulse Rate 101 H 101 H 98 H Respiratory Rate 18 19 20 Blood Pressure 115/58 L 120/60 Pulse Oximetry 97 100 100 01/27/18 01:09 01/27/18 04:06 01/27/18 06:00 Temperature 99 F Pulse Rate 107 H Respiratory Rate 17 Blood Pressure 115/63 Pulse Oximetry 97 96 100 01/27/18 08:00 01/27/18 09:31 Temperature Pulse Rate 104 H Respiratory Rate 16 Blood Pressure Pulse Oximetry 98 100 Intake & Output 01/26/18 01/27/18 01/27/18 18:59 06:59 18:59 Intake Total 100 / 100 Output Total 360 / 360 2100 / 2100 Balance -360 / -360 -1999 / -1999 Weight 79 kg Intake: IV 100 / 100 Merrem Inj 1,000 MG In NS Inj 100 / 100 100 ML @ 200 mls/hr IV.SIG Q12H [facility] Rx#:[id number] Oral 0 / 0 Output: Urine 2100 / 2100 Chest Tube Drainage 360 / 360 0 / 0 Right 360 / 360 0 / 0 Other: Date of Last Bowel Movement 01/25/18 # Bowel Movements 0 # Incontinent Bowel Movements 0 - Constitutional no acute distress - Routine HEENT Exam Head: Present: normocephalic - Routine Neck Exam Present: supple. Absent: JVD - Routine Respiratory Exam Present: decreased breath sounds, rhonchi. Absent: rales, wheezes - Routine Cardiovascular Exam Present: RRR. Absent: murmur - Routine Abdominal Exam Present: soft, normoactive bowel sounds. Absent: tenderness Comments: PEG tube - Routine Extremities Exam Present: edema - Routine Skin Exam Present: dry, warm - Detailed Neurological Exam: Coma Scale Eye Opening: To pressure - Urinary Catheter Management Straight Cath placed during this visit: yes Urethral indwelling: Yes Reason for continuing: Acute urinary retention Insertion date: 01/21/18 Insertion time: 08:00 Indwelling Urethral Catheter Cath placed during this visit: yes, but has since been removed by the nurse Urethral indwelling: Yes Reason for continuing: Acute urinary retention Insertion date: 01/21/18 Insertion time: 16:18 Removal date: 01/20/18 Removal time: 15:15 <Oneida Goddard - Last Filed: 01/27/18 10:09> Vital signs: Vital Signs 01/26/18 21:04 01/26/18 21:40 01/27/18 01:00 Temperature 99.3 F 99 F Pulse Rate 101 H 101 H 98 H Respiratory Rate 18 19 20 Blood Pressure 115/58 L 120/60 Pulse Oximetry 97 100 100 01/27/18 01:09 01/27/18 04:06 01/27/18 06:00 Temperature 99 F Pulse Rate 107 H Respiratory Rate 17 Blood Pressure 115/63 Pulse Oximetry 97 96 100 01/27/18 08:00 01/27/18 09:31 01/27/18 11:56 Temperature 99.4 F Pulse Rate 106 H 104 H 105 H Respiratory Rate 18 16 Blood Pressure 104/61 Pulse Oximetry 98 100 01/27/18 12:00 01/27/18 14:11 01/27/18 16:00 Temperature 99.3 F 98.6 F Pulse Rate 98 H 99 H 96 H Respiratory Rate 16 18 Blood Pressure 99/55 L 91/51 L Pulse Oximetry 100 99 01/27/18 18:27 Temperature Pulse Rate 96 H Respiratory Rate Blood Pressure Pulse Oximetry Intake & Output 01/27/18 01/27/18 01/28/18 06:59 18:59 06:59 Intake Total 200 / 200 100 / 100 Output Total 2099 / 2100 750 / 750 Balance -1900 / -1900 -650 / -650 Weight 79 kg Intake: IV 200 / 200 100 / 100 Merrem Inj 1,000 MG In NS Inj 200 / 200 100 / 100 100 ML @ 200 mls/hr IV.SIG Q12H [facility] Rx#:[id number] Oral 0 / 0 Output: Urine 2100 / 2100 750 / 750 Chest Tube Drainage 0 / 0 Right 0 / 0 Other: # Bowel Movements 0 # Incontinent Bowel Movements 0 - Urinary Catheter Management Straight Cath placed during this visit: no Indwelling Urethral Catheter Cath placed during this visit: no <Meagan Salas - Last Filed: 01/27/18 19:03> Assessment and Plan - Plan Acute kidney injury Creatinine has improved at 1.19 Avoid nephrotoxins Monitor BMP periodically. Will sign off and see patient PRN <Oneida Goddard - Last Filed: 01/27/18 10:09> - Attending Attestation Patient seen and examine, agree with above. Creatinine is better, will see PRN if needed. <Meagan Salas - Last Filed: 01/27/18 19:03>
[2018-01-27] MEDS: Insulin Detemir Inj 1,000 UNIT/10 ML Vial SQ SCH ×2 (10:39→22:36)
[2018-01-27] MEDS: Collagenase Oint 30 GM Tube TOPICAL SCH (10:39)
[2018-01-27] MEDS: Acetaminophen 325 MG Tablet PO PRN (12:22)
--- NOTE | 2018-01-27 13:07 | P.PNWCN ---
Wound Care Nurse Consult Description: Patient seen earlier with Doctor Utpon for follow up of wound to sacrum Recommendation: Please follow written orders from Doctor Upton Wound/Pressure Injury - Wound Sacrum Wound Staging: Unstageable Wound Assessment: Ongoing Wound Type: Pressure Injury Is This a Chronic Wound: Yes Requested from Provider a Wound Care Consult: No Length: 11 (cm) Width: 11 (cm) Depth: 0 (slough) Wound Bed Appearance: Red, Yellow Wound Bed Appearance: Wound bed presents with an island of ~70% yellow slough, ~30% red tissue Surrounding Tissue Appearance: [place] Surrounding Tissue Temperature: Warm Drainage Description: Serosanguinous Drainage Amount: Minimal Drainage Odor: No Odor Dressing Status: Changed Cleansing Solution: Saline Topical: Enzymatic Debridement Ointment Wound Packing Type: Gauze Pads Cover Dressing: bordered gauze Wound Dressing Change Date: 01/27/18 Wound Margin Description: Wound margins are well defined - Additional Information Patient seen earlier for follow up of sacral stage IV wound with Doctor Upton. Patient is has a trach and is non verbal but responds to commands from family member in the room by blinking eyes. Patient was turned to L side with the assistance of MAGDIEL cody.Removed Bordered gauze gauze pads from Sacral wound . Wound bed presents initially with an island of ~70% yellow slough that is now loosely adherent with ~30% red tissue. Doctor Upton sharply debrided wound with scissors and curette. Wound was cleansed with normal saline. Applied yon thick coverage of Santyl ointment to wound bed with saline moistened gauze pads that were loosely packed in wound bed. Skin barrier film was applied to periwound before covering wound with bordered gauze.Patient was positioned off bottom with pillow in place for support. Incision - Patient Status Premedicated for Pain Prior to Dressing Change: No
--- NOTE | 2018-01-27 17:38 | P.PNID ---
Subjective Remarks: fever 2 days ago afebrile sputum growing GNR UA clean No fever today Antibiotics: diflucan meropenem Lines: periferal Lines ok Past Medical History: reviewed Allergies/Adverse Reactions: Allergies No Known Allergies Allergy (Verified 12/25/17 11:22) Objective Vital Signs 01/26/18 19:00 01/26/18 21:04 01/26/18 21:40 Temperature 99.3 F Pulse Rate 101 H 101 H Respiratory Rate 18 19 Blood Pressure 115/58 L Pulse Oximetry 97 97 100 01/27/18 01:00 01/27/18 01:09 01/27/18 04:06 Temperature 99 F Pulse Rate 98 H Respiratory Rate 20 Blood Pressure 120/60 Pulse Oximetry 100 97 96 01/27/18 06:00 01/27/18 08:00 01/27/18 09:31 Temperature 99 F 99.4 F Pulse Rate 107 H 106 H 104 H Respiratory Rate 17 18 16 Blood Pressure 115/63 104/61 Pulse Oximetry 100 98 100 01/27/18 11:56 01/27/18 12:00 01/27/18 14:11 Temperature 99.3 F Pulse Rate 105 H 98 H 99 H Respiratory Rate 16 Blood Pressure 99/55 L Pulse Oximetry 100 Intake & Output 01/26/18 01/27/18 01/27/18 18:59 06:59 18:59 Intake Total 200 / 200 Output Total 360 / 360 2100 / 2100 Balance -360 / -360 -1900 / -1900 Weight 79 kg Intake: IV 200 / 200 Merrem Inj 1,000 MG In NS Inj 200 / 200 100 ML @ 200 mls/hr IV.SIG Q12H [facility] Rx#:[id number] Oral 0 / 0 Output: Urine 2100 / 2100 Chest Tube Drainage 360 / 360 0 / 0 Right 360 / 360 0 / 0 Other: Date of Last Bowel Movement 01/25/18 # Bowel Movements 0 # Incontinent Bowel Movements 0 01/26/18 09:16 Sputum - Tracheal Aspirate Gram Stain - Final 01/26/18 09:16 Sputum - Tracheal Aspirate Sputum Culture - Preliminary gram negative rods 01/26/18 11:35 Blood - Peripheral Aerobic Blood Culture - Preliminary No growth in 1 day 01/26/18 11:35 Blood - Peripheral Anaerobic Blood Culture - Preliminary No growth in 1 day 01/26/18 11:45 Blood - Peripheral Aerobic Blood Culture - Preliminary No growth in 1 day 01/26/18 11:45 Blood - Peripheral Anaerobic Blood Culture - Preliminary No growth in 1 day 01/23/18 18:30 Sputum - Endotracheal Gram Stain - Final 01/23/18 18:30 Sputum - Endotracheal Sputum Culture - Final Stenotrophomonas maltophilia 01/27/18 06:00 Catheterized Urine Urine Culture - Pending 01/04/18 12:45 Fluid - Pleural fluid Acid Fast Bacilli Smear - Final No acid fast bacilli seen 01/04/18 12:45 Fluid - Pleural fluid Mycobacterial Culture - Preliminary No growth in 3 weeks 01/20/18 13:15 Blood - Peripheral Aerobic Blood Culture - Final No growth in 5 days 01/20/18 13:15 Blood - Peripheral Anaerobic Blood Culture - Final No growth in 5 days 01/20/18 13:20 Blood - Peripheral Aerobic Blood Culture - Final No growth in 5 days 01/20/18 13:20 Blood - Peripheral Anaerobic Blood Culture - Final No growth in 5 days 01/03/18 17:00 Fluid - Pleural fluid Fungal Smear - Final No fungal elements seen 01/03/18 17:00 Fluid - Pleural fluid Fungal Culture - Preliminary No growth in 3 weeks 01/03/18 17:00 Fluid - Pleural fluid Acid Fast Bacilli Smear - Final No acid fast bacilli seen 01/03/18 17:00 Fluid - Pleural fluid Mycobacterial Culture - Preliminary No growth in 3 weeks Lab - Hematology Results 01/27/18 07:02 WBC 9.2 RBC 2.78 L Hgb 7.6 L Hct 24.4 L MCV 87.6 MCH 27.4 MCHC 31.3 L RDW 19.5 H Plt Count 431 MPV 8.2 Neut % (Auto) 45.9 Lymph % (Auto) 43.2 [place] % (Auto) 7.2 Eos % (Auto) 2.4 Baso % (Auto) 1.3 Neut # (Auto) 4.2 Lymph # (Auto) 4.0 [place] # (Auto) 0.7 Eos # (Auto) 0.2 Baso # (Auto) 0.1 WBC Differential . Differential Comment Auto diff final Lab - Chemistry Results 01/26/18 01/26/18 01/26/18 00:20 06:51 11:35 Sodium 145 Potassium 4.6 Chloride 114 H Carbon Dioxide 21.7 Anion Gap 9 BUN 51 H Creatinine 1.29 Estimated GFR 54 L POC Glucose 180 H 143 H Random Glucose 119 H Calcium 7.6 L Total Bilirubin 0.2 AST 116 H ALT 78 Alkaline Phosphatase 239 H Total Protein 6.3 L Albumin 1.2 L 01/26/18 01/26/18 01/26/18 13:12 18:09 20:35 Sodium 146 H Potassium 4.5 Chloride 116 H Carbon Dioxide 22.4 Anion Gap 8 BUN 49 H Creatinine 1.23 Estimated GFR 57 L POC Glucose 134 H 132 H Random Glucose 110 H Calcium 7.5 L Total Bilirubin 0.3 AST 86 H ALT 69 Alkaline Phosphatase 225 H Total Protein 6.5 Albumin 1.2 L 01/26/18 01/27/18 01/27/18 20:57 00:12 05:30 Sodium Potassium Chloride Carbon Dioxide Anion Gap BUN Creatinine Estimated GFR POC Glucose 135 H 142 H 127 H Random Glucose Calcium Total Bilirubin AST ALT Alkaline Phosphatase Total Protein Albumin 01/27/18 01/27/18 01/27/18 07:02 08:38 12:34 Sodium 147 H Potassium 4.4 Chloride 117 H Carbon Dioxide 24.0 Anion Gap 6 BUN 48 H Creatinine 1.19 Estimated GFR 59 L POC Glucose 131 H 164 H Random Glucose 118 H Calcium 7.6 L Total Bilirubin AST ALT Alkaline Phosphatase Total Protein Albumin Imaging: ITS Impressions Head MRI 01/02/18 00:00 CONCLUSION: 1. 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 2. Cerebral atrophy and chronic ischemic small vessel vasculopathy. Chest CT 01/03/18 00:00 CONCLUSION: 1. Large bilateral pleural effusions occupying more than half of the right and left hemithorax. Abdomen/Pelvis CT 01/13/18 00:00 CONCLUSION: 1. Small bilateral pleural effusions and basilar infiltrates with bilateral chest tubes in place. 2. No evidence of ascites or bowel dilatation. Abdomen/Bladder Ultrasound 01/15/18 00:00 CONCLUSION: 1. Negative renal sonogram. Abdomen X-Ray 01/26/18 00:00 CONCLUSION: Nonobstructive bowel gas pattern. Chest X-Ray 01/26/18 00:00 CONCLUSION: Stable appearance of the chest. Physical Exam: GENERAL: Patient is 77 yo on Tpiece SKIN: Warm and dry. No rash HEAD: Normocephalic. EYES: No scleral icterus. No injection or drainage. NECK: Supple, trachea midline. + trach in place with large amount of drainage CARDIOVASCULAR: RRR. No murmurs, rubs, gallops RESPIRATORY: Breath sounds equal bilaterally. No accessory muscle use. R CT in place with serous drainage GASTROINTESTINAL: Abdomen soft, non-tender, nondistended. +PEG tube in place MUSCULOSKELETAL: No cyanosis, less prominent edema. 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 Prior h/o ESBL E.coli on 10/24/2017. Possible HCAP GNR UTI ? ESBL given h/o ESBL. 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 Encephalopathy: strokes in hospital, optic neuritis on presentation. New issue: fungemia, C. tropicalis - persistent fungemia Persistent fever Gram negative UTI: PSAE and ESBL + Kleb Recs: cont Fluconazol Once documented blood sterility will cont fluconazole at least 2 weeks MOnitoring parameters: CBC CMP transition to oral form when ready for dc fu P blood clx from yday repeat CXR fu sputum clx
[2018-01-27] MEDS ORDERED: Sodium Chlor 0.9% Inj 500 ML IV.SIG ONE (18:57)
--- NOTE | 2018-01-27 18:58 | P.PN ---
Physical Exam Vital signs: Vital Signs 01/26/18 19:00 01/26/18 21:04 01/26/18 21:40 Temperature 99.3 F Pulse Rate 101 H 101 H Respiratory Rate 18 19 Blood Pressure 115/58 L Pulse Oximetry 97 97 100 01/27/18 01:00 01/27/18 01:09 01/27/18 04:06 Temperature 99 F Pulse Rate 98 H Respiratory Rate 20 Blood Pressure 120/60 Pulse Oximetry 100 97 96 01/27/18 06:00 01/27/18 08:00 01/27/18 09:31 Temperature 99 F 99.4 F Pulse Rate 107 H 106 H 104 H Respiratory Rate 17 18 16 Blood Pressure 115/63 104/61 Pulse Oximetry 100 98 100 01/27/18 11:56 01/27/18 12:00 01/27/18 14:11 Temperature 99.3 F Pulse Rate 105 H 98 H 99 H Respiratory Rate 16 Blood Pressure 99/55 L Pulse Oximetry 100 01/27/18 16:00 01/27/18 18:27 Temperature 98.6 F Pulse Rate 96 H 96 H Respiratory Rate 18 Blood Pressure 91/51 L Pulse Oximetry 99 Intake & Output 01/26/18 01/27/18 01/27/18 18:59 06:59 18:59 Intake Total 200 / 200 100 / 100 Output Total 360 / 360 2099 / 2100 750 / 750 Balance -360 / -360 -1900 / -1900 -650 / -650 Weight 79 kg Intake: IV 200 / 200 100 / 100 Merrem Inj 1,000 MG In NS Inj 200 / 200 100 / 100 100 ML @ 200 mls/hr IV.SIG Q12H EDE Rx#:[id number] Oral 0 / 0 Output: Urine 2099 750 / 750 Chest Tube Drainage 360 / 360 0 / 0 Right 360 / 360 0 / 0 Other: Date of Last Bowel Movement 01/25/18 # Bowel Movements 0 # Incontinent Bowel Movements 0 Narrative: Subjective: Diet changed per it technical support specialist advance rate on tbe feedings until goal reached no vomiting With spikes of fvers will consider reconsult ID Dr Sinha for reevaluation BP into a lower side, give bolus 500 cc Physical Exam GENERAL: No acute distress, awake and alert SKIN: back with sacral decubitus- deep edges no necrotic tissue, debrided at bedside 01/20- by Dr. Upton NECK: Trach in place. CARDIOVASCULAR: Regular rate and rhythm without murmurs, gallops, or rubs. RESPIRATORY: Breath sounds equal bilaterally. No accessory muscle use. GASTROINTESTINAL: Abdomen soft, non-tender, nondistended. +PEG tube in place : Garcia in place- placed 01/21 MUSCULOSKELETAL: No cyanosis, or edema. NEURO: neuro status at baseline- unchanged Assessment and Plan This is a 77-year-old male who initially presented with vision changes with concern for optic neuritis versus temporal arteritis. Hospital course complicated by NSTEMI, E. coli urinary tract infection, rectal bleeding with acute anemia. He became lethargic, admitted to the intensive care unit and found to have CVA. CTA head and neck revealed atherosclerotic disease. After giving TPA, the patient had tonic-clonic seizure and became obtunded with acute hypoxic and hypercarbic respiratory failure, intubated. Patient was then transferred to the hospitalist service when patient was more stable. 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 Repeat MRI unchanged. Patient also had seizures, EEG showed diffuse encephalopathy. -Continue statin, Ritalin. After discussion patient's daughter, she would like to try to get the patient off Keppra and hopefully will improve his mental status. She is aware that there is risk for seizures. Follow while off Keppra. Neuropsychology following. Was on steroids for optic neuritis. Encephalopathy persists, no change in mental status, family continues to be aggressive in goals -restart coumadin- pharmacy ff . f INR ID REcurrent fever - spiked again Recurrent UTI-prior history of ESBL E. coli- new culture - 01/17- Pseudomonas Sacral decub with possible underlying infection, osteomyelitis. Fungemia- repeat cultures negative x 48 hours Possible Aspiration PNA - Sacral decub has eschar with possible underlying osteomyelitis. Patient family refused surgical sacral debridement after seen by plastic surgery. Wound care and Dr. Upton following. 12/31 Wound cx: ESBL E.coli -Garcia catheter changed 01/09/2018, Urine culture on 01/09 grew Pseudomonas pansensitive, -Status post ciprofloxacin and imipenem. Echocardiogram on 01/12, no vegetation. Ophthalmology has seen the patient, no fungal keratitis or fungal eye infection. - Repeat blood cultures still growing Xenia tropicalis, switched back to fluconazole per infectious disease. Still having fever, rechecked blood culture , repeat urinalysis still shows large leukocyte esterase and pyuria, leukocytosis increasing, CTT still in position with increased right-sided pleural effusion. - ID ff - Started on meropenem, and vancomycin. Continue Diflucan, once documented blood sterility, will continue fluconazole for at least 2 weeks whether oral or IV. Follow-up repeat blood culture. - FF up final urine cultures- 01/17- growing Pseudomonas - final s still pending - Blood cultures from 01/16 negative so far - restarted TF- tolerating well - wound care daily- per wound care team recommendations- S/P extensive bedside debridement 01/[address] Salazar - 01/26/18 check CXR - no significant change, KUB- no acute findings Acute on chronic respiratory failure status post tracheostomy- currently on 28% T piece Bilateral Pleural effusion, with healthcare associated pneumonia - Pigtail catheters in place- left chest tube was removed 01/19 - right pigtail catheter still in place pleural fluid cultures negative consistent with transudative effusion. bronchodilators, pulmonary toilet. pulmonary following. Repeat chest x-ray- unchanged - minimal secretions - trach care- Acute renal failure on top of chronic kidney disease HYpernatremia- HYperkalemia - resolved -creatinine stabilizing ff UO and BMP - continue on 06/29 NS- Slip Filler ff. d/w staff- to give free water /PEG- reviewed EMR- not given - Kidney ultrasound unremarkable. - Nephrology ff - creatinine- stable - ff CMP in am Urinary retention - garcia placed 01/21 DM type 2 - A1C 9.6, BGs still high, - Levemir increased to 15 units twice a day on 01/17/2018, cont sliding scale insulin and adjust dose However the patient was vomited tube feeds on hols Hold levemir. KUB ordered non specific findings. CHRONIC RESOLVED ISSUES: Scrotal Edema/ulcerations - seen by Urology: continue wcatheter as needed, scrotal elevation NSTEMI Echo 10/19: LV systolic function is moderately reduced, EF 40-45%. continue Coreg and statin. Anemia secondary to GI bleed- Status post EGD colonoscopy. GI has signed off, patient with healed rectal ulcers and hemorrhoids. Continue Pepcid. Vomiting x 1 episode last evening- 01/23 - TF held last evening- no residual - abdominal exam- beningn, soft with good bowel sounds -restart tube feeds-Glucerna 1.5 with start at 20 cc/hr and increase gradually every 4 hours camille powder packet bid - d/w staff nurse - if persisit will check XR - check CMP in am- LFTs GI prophylaxis- on Pepcid DVT prophylaxis-on coumadin- INR therapeutic - pharmacy dsoing 01/07 per long discussion with patient's daughter - manager long term care plan- she says it's difficult for them to take her home- working - SNF- no insurance- patient here visiting from [place] when this unfortunate event happened - Urinary Catheter Management Straight Cath placed during this visit: yes Urethral indwelling: Yes Reason for continuing: Acute urinary retention Insertion date: 01/21/18 Insertion time: 08:00 Indwelling Urethral Catheter Cath placed during this visit: yes, but has since been removed by the nurse Urethral indwelling: Yes Reason for continuing: Acute urinary retention Insertion date: 01/21/18 Insertion time: 16:18 Removal date: 01/20/18 Removal time: 15:15 Results - Labs CBC & Chem 7: 01/27/18 07:02 01/27/18 07:02 Laboratory Results - last 24 hr 01/26/18 01/26/18 01/27/18 20:35 20:57 00:12 WBC RBC Hgb Hct MCV MCH MCHC RDW Plt Count MPV Neut % (Auto) Lymph % (Auto) [place] % (Auto) Eos % (Auto) Baso % (Auto) Neut # (Auto) Lymph # (Auto) [place] # (Auto) Eos # (Auto) Baso # (Auto) WBC Differential Differential Comment PT INR Sodium 146 H Potassium 4.5 Chloride 116 H Carbon Dioxide 22.4 Anion Gap 8 BUN 49 H Creatinine 1.23 Estimated GFR 57 L POC Glucose 135 H 142 H Random Glucose 110 H Calcium 7.5 L Total Bilirubin 0.3 AST 86 H ALT 69 Alkaline Phosphatase 225 H Total Protein 6.5 Albumin 1.2 L Urine Color Urine Clarity Urine pH Ur Specific [place] Urine Protein Urine Glucose (UA) Urine Ketones Urine Occult Blood Urine Nitrate Urine Bilirubin Urine Urobilinogen Ur Leukocyte Esterase Urine RBC Urine WBC Urine Bacteria Urine Mucus Micro UA Comment Urine Culture Comments 01/27/18 01/27/18 01/27/18 05:30 06:00 07:02 WBC RBC Hgb Hct MCV MCH MCHC RDW Plt Count MPV Neut % (Auto) Lymph % (Auto) [place] % (Auto) Eos % (Auto) Baso % (Auto) Neut # (Auto) Lymph # (Auto) [place] # (Auto) Eos # (Auto) Baso # (Auto) WBC Differential Differential Comment PT 24.6 H INR 2.4 Sodium Potassium Chloride Carbon Dioxide Anion Gap BUN Creatinine Estimated GFR POC Glucose 127 H Random Glucose Calcium Total Bilirubin AST ALT Alkaline Phosphatase Total Protein Albumin Urine Color Yellow Urine Clarity Clear Urine pH 6.0 Ur Specific [place] 1.012 Urine Protein 30 H Urine Glucose (UA) Negative Urine Ketones Negative Urine Occult Blood Small H Urine Nitrate Negative Urine Bilirubin Negative Urine Urobilinogen Less than 2 Ur Leukocyte Esterase Negative Urine RBC 1 Urine WBC 4 Urine Bacteria Rare H Urine Mucus Few H Micro UA Comment Cath-culture ind Urine Culture Comments Cath-cult indicated 01/27/18 01/27/18 01/27/18 07:02 07:02 08:38 WBC 9.2 RBC 2.78 L Hgb 7.6 L Hct 24.4 L MCV 87.6 MCH 27.4 MCHC 31.3 L RDW 19.5 H Plt Count 431 MPV 8.2 Neut % (Auto) 45.9 Lymph % (Auto) 43.2 [place] % (Auto) 7.2 Eos % (Auto) 2.4 Baso % (Auto) 1.3 Neut # (Auto) 4.2 Lymph # (Auto) 4.0 [place] # (Auto) 0.7 Eos # (Auto) 0.2 Baso # (Auto) 0.1 WBC Differential . Differential Comment Auto diff final PT INR Sodium 147 H Potassium 4.4 Chloride 117 H Carbon Dioxide 24.0 Anion Gap 6 BUN 48 H Creatinine 1.19 Estimated GFR 59 L POC Glucose 131 H Random Glucose 118 H Calcium 7.6 L Total Bilirubin AST ALT Alkaline Phosphatase Total Protein Albumin Urine Color Urine Clarity Urine pH Ur Specific [place] Urine Protein Urine Glucose (UA) Urine Ketones Urine Occult Blood Urine Nitrate Urine Bilirubin Urine Urobilinogen Ur Leukocyte Esterase Urine RBC Urine WBC Urine Bacteria Urine Mucus Micro UA Comment Urine Culture Comments 01/27/18 01/27/18 12:34 18:15 WBC RBC Hgb Hct MCV MCH MCHC RDW Plt Count MPV Neut % (Auto) Lymph % (Auto) [place] % (Auto) Eos % (Auto) Baso % (Auto) Neut # (Auto) Lymph # (Auto) [place] # (Auto) Eos # (Auto) Baso # (Auto) WBC Differential Differential Comment PT INR Sodium Potassium Chloride Carbon Dioxide Anion Gap BUN Creatinine Estimated GFR POC Glucose 164 H 141 H Random Glucose Calcium Total Bilirubin AST ALT Alkaline Phosphatase Total Protein Albumin Urine Color Urine Clarity Urine pH Ur Specific [place] Urine Protein Urine Glucose (UA) Urine Ketones Urine Occult Blood Urine Nitrate Urine Bilirubin Urine Urobilinogen Ur Leukocyte Esterase Urine RBC Urine WBC Urine Bacteria Urine Mucus Micro UA Comment Urine Culture Comments Microbiology 01/26/18 09:16 Sputum - Tracheal Aspirate Gram Stain - Final 01/26/18 09:16 Sputum - Tracheal Aspirate Sputum Culture - Preliminary gram negative rods 01/26/18 11:35 Blood - Peripheral Aerobic Blood Culture - Preliminary No growth in 1 day 01/26/18 11:35 Blood - Peripheral Anaerobic Blood Culture - Preliminary No growth in 1 day 01/26/18 11:45 Blood - Peripheral Aerobic Blood Culture - Preliminary No growth in 1 day 01/26/18 11:45 Blood - Peripheral Anaerobic Blood Culture - Preliminary No growth in 1 day 01/23/18 18:30 Sputum - Endotracheal Gram Stain - Final 01/23/18 18:30 Sputum - Endotracheal Sputum Culture - Final Stenotrophomonas maltophilia Assessment and Plan - Assessment (1) Encephalopathy Code(s): G93.40 - Encephalopathy, unspecified Status: Acute (2) CVA (cerebral vascular accident) Code(s): I63.9 - Cerebral infarction, unspecified Status: Acute (3) Wound of sacral region Code(s): S31.000A - Unspecified open wound of lower back and pelvis without penetration into retroperitoneum, initial encounter Status: Acute (4) NSTEMI (non-ST elevated myocardial infarction) Code(s): I21.4 - Non-ST elevation (NSTEMI) myocardial infarction Status: Resolved (5) Anemia Code(s): D64.9 - Anemia, unspecified Status: Acute (6) Respiratory failure with hypoxia and hypercapnia Code(s): J96.91 - Respiratory failure, unspecified with hypoxia; J96.92 - Respiratory failure, unspecified with hypercapnia Status: Resolved (7) Optic neuritis Code(s): H46.9 - Unspecified optic neuritis Status: Resolved (5) Anemia Qualifiers: Anemia type: unspecified type Qualified Code(s): D64.9 - Anemia, unspecified
--- NOTE | 2018-01-28 07:07 | XR ---
EXAM DATE: 01/28/2018 7:03 AM EDT AGE/SEX: 77 years / Male INDICATIONS: Cough, short of breath CLINICAL DATA: This is the patient's subsequent encounter. Patient reports that signs and symptoms h ave been present for 3 months and indicates a pain score of Nonresponsive. MEDICAL/SURGICAL HISTORY: Cardiovascular disease. Diabetes. Coronary artery stent. tracheostom y COMPARISON: C, CHEST 1V SINGLE AP, 01/26/2018. . FINDINGS: Right inferior pleural pigtail catheter remains in place. Mild residual right opacification. Persiste nt small-moderate left pleural effusion. Stable diffuse interstitial and airspace opacities bilateral ly. No appreciable pneumothorax. Grossly stable enlarged cardiac silhouette. Tracheostomy tube remain s in place. CONCLUSION: No significant interval change. Electronically signed by: Mckenzie Toure MD 01/28/2018 7:06 AM EDT
[2018-01-28] MEDS: Insulin NovoLIN Regular Correctional Sugar Inj SQ SCH ×5 (07:10→23:46)
[2018-01-28 08:43] LABS: INR 3.3 Ratio; Prothrombin Time 33.2 sec (9.8-11.6)
[2018-01-28] MEDS: Hydrocortisone Acetate 25 MG Supp RECTAL SCH ×2 (09:32→22:56)
[2018-01-28] MEDS: Acetaminophen 325 MG Tablet PO PRN ×2 (09:32→18:21)
[2018-01-28] MEDS: Famotidine 20 MG Tablet PO SCH ×2 (09:32→22:55)
[2018-01-28] MEDS: Polyethylene Glycol 3350 17 GM Packet PO SCH (09:33)
[2018-01-28] MEDS: Collagenase Oint 30 GM Tube TOPICAL SCH (09:34)
[2018-01-28] MEDS: Insulin Detemir Inj 1,000 UNIT/10 ML Vial SQ SCH ×2 (11:14→23:45)
--- NOTE | 2018-01-28 15:53 | P.PN ---
Physical Exam Vital signs: Vital Signs 01/27/18 16:00 01/27/18 18:27 01/27/18 20:00 Temperature 98.6 F 98.7 F Pulse Rate 96 H 96 H 94 H Respiratory Rate 18 19 Blood Pressure 91/51 L 118/89 Pulse Oximetry 99 100 01/27/18 22:14 01/28/18 00:40 01/28/18 06:20 Temperature 98.8 F 97.9 F Pulse Rate 99 H 88 80 Respiratory Rate 19 19 20 Blood Pressure 120/90 125/80 Pulse Oximetry 98 100 100 01/28/18 07:24 01/28/18 07:33 01/28/18 08:00 Temperature 102.1 F H Pulse Rate 106 H 106 H Respiratory Rate 12 22 Blood Pressure 108/61 Pulse Oximetry 96 98 98 01/28/18 11:54 01/28/18 12:00 01/28/18 12:44 Temperature 101.7 F H Pulse Rate 107 H 99 H 104 H Respiratory Rate 20 Blood Pressure 98/56 L Pulse Oximetry 98 Intake & Output 01/27/18 01/28/18 01/28/18 18:59 06:59 18:59 Intake Total 100 / 100 100 / 100 Output Total 750 / 750 2590 / 2590 Balance -650 / -650 -2490 / -2490 Weight 79 kg Intake: IV 100 / 100 100 / 100 Merrem Inj 1,000 MG In NS Inj 100 / 100 100 / 100 100 ML @ 200 mls/hr IV.SIG Q12H EDE Rx#:[id number] Oral 0 / 0 Output: Urine 750 / 750 Urine Amount (Catheter) 2400 / 2400 Indwelling Urethral Catheter 2400 / 2400 Chest Tube Drainage 190 / 190 Right 30 / 30 Right Mid-Axillary Chest 160 / 160 Other: # Bowel Movements 0 1 Narrative: Subjective: Diet changed per tooth polisher recommendations, no more vomiting so far No fevers overnight Physical Exam GENERAL: No acute distress, awake and alert SKIN: back with sacral decubitus- deep edges no necrotic tissue, debrided at bedside 01/20- by Dr. Upton NECK: Trach in place. CARDIOVASCULAR: Regular rate and rhythm without murmurs, gallops, or rubs. RESPIRATORY: Breath sounds equal bilaterally. No accessory muscle use. GASTROINTESTINAL: Abdomen soft, non-tender, nondistended. +PEG tube in place : Garcia in place- placed 01/21 MUSCULOSKELETAL: No cyanosis, or edema. NEURO: neuro status at baseline- unchanged Assessment and Plan This is a 77-year-old male who initially presented with vision changes with concern for optic neuritis versus temporal arteritis. Hospital course complicated by NSTEMI, E. coli urinary tract infection, rectal bleeding with acute anemia. He became lethargic, admitted to the intensive care unit and found to have CVA. CTA head and neck revealed atherosclerotic disease. After giving TPA, the patient had tonic-clonic seizure and became obtunded with acute hypoxic and hypercarbic respiratory failure, intubated. Patient was then transferred to the hospitalist service when patient was more stable. 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 Repeat MRI unchanged. Patient also had seizures, EEG showed diffuse encephalopathy. -Continue statin, Ritalin. After discussion patient's daughter, she would like to try to get the patient off Keppra and hopefully will improve his mental status. She is aware that there is risk for seizures. Follow while off Keppra. Neuropsychology following. Was on steroids for optic neuritis. Encephalopathy persists, no change in mental status, family continues to be aggressive in goals -restart coumadin- pharmacy ff . f INR ID REcurrent fever - spiked again Recurrent UTI-prior history of ESBL E. coli- new culture - 01/17- Pseudomonas Sacral decub with possible underlying infection, osteomyelitis. Fungemia- repeat cultures negative x 48 hours Possible Aspiration PNA - Sacral decub has eschar with possible underlying osteomyelitis. Patient family refused surgical sacral debridement after seen by plastic surgery. Wound care and Dr. Upton following. 12/31 Wound cx: ESBL E.coli -Garcia catheter changed 01/09/2018, Urine culture on 01/09 grew Pseudomonas pansensitive, -Status post ciprofloxacin and imipenem. Echocardiogram on 01/12, no vegetation. Ophthalmology has seen the patient, no fungal keratitis or fungal eye infection. - Repeat blood cultures still growing Xenia tropicalis, switched back to fluconazole per infectious disease. Still having fever, rechecked blood culture , repeat urinalysis still shows large leukocyte esterase and pyuria, leukocytosis increasing, CTT still in position with increased right-sided pleural effusion. - ID ff - Started on meropenem, and vancomycin. Continue Diflucan, once documented blood sterility, will continue fluconazole for at least 2 weeks whether oral or IV. Follow-up repeat blood culture. - FF up final urine cultures- 01/17- growing Pseudomonas - final s still pending - Blood cultures from 01/16 negative so far - restarted TF- tolerating well - wound care daily- per wound care team recommendations- S/P extensive bedside debridement 01/[address] Salazar - 01/26/18 check CXR - no significant change, KUB- no acute findings Acute on chronic respiratory failure status post tracheostomy- currently on 28% T piece Bilateral Pleural effusion, with healthcare associated pneumonia - Pigtail catheters in place- left chest tube was removed 01/19 - right pigtail catheter still in place pleural fluid cultures negative consistent with transudative effusion. bronchodilators, pulmonary toilet. pulmonary following. Repeat chest x-ray- unchanged - minimal secretions - trach care- Acute renal failure on top of chronic kidney disease HYpernatremia- HYperkalemia - resolved -creatinine stabilizing ff UO and BMP - continue on 06/29 NS- Information Technology Account Manager ff. d/w staff- to give free water /PEG- reviewed EMR- not given - Kidney ultrasound unremarkable. - Nephrology ff - creatinine- stable - ff CMP in am Urinary retention - garcia placed 01/21 DM type 2 - A1C 9.6, BGs still high, - Levemir increased to 15 units twice a day on 01/17/2018, cont sliding scale insulin and adjust dose However the patient was vomited tube feeds on hols Hold levemir. KUB ordered non specific findings. CHRONIC RESOLVED ISSUES: Scrotal Edema/ulcerations - seen by Urology: continue wcatheter as needed, scrotal elevation NSTEMI Echo 10/19: LV systolic function is moderately reduced, EF 40-45%. continue Coreg and statin. Anemia secondary to GI bleed- Status post EGD colonoscopy. GI has signed off, patient with healed rectal ulcers and hemorrhoids. Continue Pepcid. Vomiting x 1 episode last evening- 01/23 - TF held last evening- no residual - abdominal exam- beningn, soft with good bowel sounds -restart tube feeds-Glucerna 1.5 with start at 20 cc/hr and increase gradually every 4 hours camille powder packet bid - d/w staff nurse - if persisit will check XR - check CMP in am- LFTs GI prophylaxis- on Pepcid DVT prophylaxis-on coumadin- INR therapeutic - pharmacy dsoing 01/07 per long discussion with patient's daughter - joint terminal attack controller plan- she says it's difficult for them to take her home- working - SNF- no insurance- patient here visiting from [place] when this unfortunate event happened Discussed with the nurse and daughter - Urinary Catheter Management Straight Cath placed during this visit: yes Urethral indwelling: Yes Reason for continuing: Acute urinary retention Insertion date: 01/21/18 Insertion time: 08:00 Indwelling Urethral Catheter Cath placed during this visit: yes, but has since been removed by the nurse Urethral indwelling: Yes Reason for continuing: Acute urinary retention Insertion date: 01/21/18 Insertion time: 16:18 Removal date: 01/20/18 Removal time: 15:15 Results - Labs CBC & Chem 7: 01/27/18 07:02 01/27/18 07:02 Laboratory Results - last 24 hr 01/27/18 01/27/18 01/28/18 18:15 22:36 06:43 PT INR POC Glucose 141 H 156 H 211 H 01/28/18 01/28/18 01/28/18 08:16 09:50 13:17 PT 33.2 H INR 3.3 POC Glucose 226 H 269 H Microbiology 01/27/18 06:00 Catheterized Urine Urine Culture - Preliminary No growth in 24 hours 01/26/18 09:16 Sputum - Tracheal Aspirate Gram Stain - Final 01/26/18 09:16 Sputum - Tracheal Aspirate Sputum Culture - Preliminary gram negative rods 01/26/18 11:35 Blood - Peripheral Aerobic Blood Culture - Preliminary No growth in 2 days 01/26/18 11:35 Blood - Peripheral Anaerobic Blood Culture - Preliminary No growth in 2 days 01/26/18 11:45 Blood - Peripheral Aerobic Blood Culture - Preliminary No growth in 2 days 01/26/18 11:45 Blood - Peripheral Anaerobic Blood Culture - Preliminary No growth in 2 days - Imaging Impressions Chest X-Ray 01/28/18 06:00 CONCLUSION: No significant interval change. Assessment and Plan - Assessment (1) Encephalopathy Code(s): G93.40 - Encephalopathy, unspecified Status: Acute (2) CVA (cerebral vascular accident) Code(s): I63.9 - Cerebral infarction, unspecified Status: Acute (3) Wound of sacral region Code(s): S31.000A - Unspecified open wound of lower back and pelvis without penetration into retroperitoneum, initial encounter Status: Acute (4) NSTEMI (non-ST elevated myocardial infarction) Code(s): I21.4 - Non-ST elevation (NSTEMI) myocardial infarction Status: Resolved (5) Anemia Code(s): D64.9 - Anemia, unspecified Status: Acute (6) Respiratory failure with hypoxia and hypercapnia Code(s): J96.91 - Respiratory failure, unspecified with hypoxia; J96.92 - Respiratory failure, unspecified with hypercapnia Status: Resolved (7) Optic neuritis Code(s): H46.9 - Unspecified optic neuritis Status: Resolved (5) Anemia Qualifiers: Anemia type: unspecified type Qualified Code(s): D64.9 - Anemia, unspecified
--- NOTE | 2018-01-28 20:13 | P.PNID ---
Subjective Remarks: New fever up to 101.7 ax more awke makes eye contact grew Sten malt in the latest sptum clx Antibiotics: diflucan meropenem Lines: periferal Lines ok Past Medical History: reviewed Allergies/Adverse Reactions: Allergies No Known Allergies Allergy (Verified 12/25/17 11:22) Objective Vital Signs 01/27/18 20:00 01/27/18 22:14 01/28/18 00:40 Temperature 98.7 F 98.8 F Pulse Rate 94 H 99 H 88 Respiratory Rate 19 19 19 Blood Pressure 118/89 120/90 Pulse Oximetry 100 98 100 01/28/18 06:20 01/28/18 07:24 01/28/18 07:33 Temperature 97.9 F Pulse Rate 80 106 H Respiratory Rate 20 12 Blood Pressure 125/80 Pulse Oximetry 100 96 98 01/28/18 08:00 01/28/18 11:54 01/28/18 12:00 Temperature 102.1 F H 101.7 F H Pulse Rate 106 H 107 H 99 H Respiratory Rate 22 20 Blood Pressure 108/61 98/56 L Pulse Oximetry 98 98 01/28/18 12:44 01/28/18 18:00 Temperature 99.9 F H Pulse Rate 104 H 102 H Respiratory Rate 18 Blood Pressure 107/58 L Pulse Oximetry 98 Intake & Output 01/28/18 01/28/18 01/29/18 06:59 18:59 06:59 Intake Total 100 / 100 100 / 100 Output Total 2590 / 2590 535 / 535 Balance -2490 / -2490 -435 / -435 Weight 79 kg Intake: IV 100 / 100 100 / 100 Merrem Inj 1,000 MG In NS Inj 100 / 100 100 / 100 100 ML @ 200 mls/hr IV.SIG Q12H [facility] Rx#:[id number] Oral 0 / 0 Output: Urine 375 / 375 Urine Amount (Catheter) 2400 / 2400 Indwelling Urethral Catheter 2400 / 2400 Chest Tube Drainage 190 / 190 160 / 160 Right 30 / 30 Right Mid-Axillary Chest 160 / 160 160 / 160 Other: # Bowel Movements 0 1 01/27/18 06:00 Catheterized Urine Urine Culture - Preliminary No growth in 24 hours 01/26/18 09:16 Sputum - Tracheal Aspirate Gram Stain - Final 01/26/18 09:16 Sputum - Tracheal Aspirate Sputum Culture - Preliminary gram negative rods 01/26/18 11:35 Blood - Peripheral Aerobic Blood Culture - Preliminary No growth in 2 days 01/26/18 11:35 Blood - Peripheral Anaerobic Blood Culture - Preliminary No growth in 2 days 01/26/18 11:45 Blood - Peripheral Aerobic Blood Culture - Preliminary No growth in 2 days 01/26/18 11:45 Blood - Peripheral Anaerobic Blood Culture - Preliminary No growth in 2 days 01/23/18 18:30 Sputum - Endotracheal Gram Stain - Final 01/23/18 18:30 Sputum - Endotracheal Sputum Culture - Final Stenotrophomonas maltophilia Lab - Hematology Results 01/27/18 07:02 WBC 9.2 RBC 2.78 L Hgb 7.6 L Hct 24.4 L MCV 87.6 MCH 27.4 MCHC 31.3 L RDW 19.5 H Plt Count 431 MPV 8.2 Neut % (Auto) 45.9 Lymph % (Auto) 43.2 [place] % (Auto) 7.2 Eos % (Auto) 2.4 Baso % (Auto) 1.3 Neut # (Auto) 4.2 Lymph # (Auto) 4.0 [place] # (Auto) 0.7 Eos # (Auto) 0.2 Baso # (Auto) 0.1 WBC Differential . Differential Comment Auto diff final Lab - Chemistry Results 01/26/18 01/26/18 01/27/18 20:35 20:57 00:12 Sodium 146 H Potassium 4.5 Chloride 116 H Carbon Dioxide 22.4 Anion Gap 8 BUN 49 H Creatinine 1.23 Estimated GFR 57 L POC Glucose 135 H 142 H Random Glucose 110 H Calcium 7.5 L Total Bilirubin 0.3 AST 86 H ALT 69 Alkaline Phosphatase 225 H Total Protein 6.5 Albumin 1.2 L 01/27/18 01/27/18 01/27/18 05:30 07:02 08:38 Sodium 147 H Potassium 4.4 Chloride 117 H Carbon Dioxide 24.0 Anion Gap 6 BUN 48 H Creatinine 1.19 Estimated GFR 59 L POC Glucose 127 H 131 H Random Glucose 118 H Calcium 7.6 L Total Bilirubin AST ALT Alkaline Phosphatase Total Protein Albumin 01/27/18 01/27/18 01/27/18 12:34 18:15 22:36 Sodium Potassium Chloride Carbon Dioxide Anion Gap BUN Creatinine Estimated GFR POC Glucose 164 H 141 H 156 H Random Glucose Calcium Total Bilirubin AST ALT Alkaline Phosphatase Total Protein Albumin 01/28/18 01/28/18 01/28/18 06:43 09:50 13:17 Sodium Potassium Chloride Carbon Dioxide Anion Gap BUN Creatinine Estimated GFR POC Glucose 211 H 226 H 269 H Random Glucose Calcium Total Bilirubin AST ALT Alkaline Phosphatase Total Protein Albumin 01/28/18 18:17 Sodium Potassium Chloride Carbon Dioxide Anion Gap BUN Creatinine Estimated GFR POC Glucose 277 H Random Glucose Calcium Total Bilirubin AST ALT Alkaline Phosphatase Total Protein Albumin Imaging: ITS Impressions Head MRI 01/02/18 00:00 CONCLUSION: 1. 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 2. Cerebral atrophy and chronic ischemic small vessel vasculopathy. Chest CT 01/03/18 00:00 CONCLUSION: 1. Large bilateral pleural effusions occupying more than half of the right and left hemithorax. Abdomen/Pelvis CT 01/13/18 00:00 CONCLUSION: 1. Small bilateral pleural effusions and basilar infiltrates with bilateral chest tubes in place. 2. No evidence of ascites or bowel dilatation. Abdomen/Bladder Ultrasound 01/15/18 00:00 CONCLUSION: 1. Negative renal sonogram. Abdomen X-Ray 01/26/18 00:00 CONCLUSION: Nonobstructive bowel gas pattern. Chest X-Ray 01/28/18 06:00 CONCLUSION: No significant interval change. Physical Exam: GENERAL: Patient is 77 yo on Tpiece SKIN: Warm and dry. No rash HEAD: Normocephalic. EYES: No scleral icterus. No injection or drainage. NECK: Supple, trachea midline. + trach in place with large amount of drainage CARDIOVASCULAR: RRR. No murmurs, rubs, gallops RESPIRATORY: Breath sounds equal bilaterally. No accessory muscle use.Rhonchi + R CT in place with serous drainage GASTROINTESTINAL: Abdomen soft, non-tender, nondistended. +PEG tube in place MUSCULOSKELETAL: No cyanosis, less prominent edema. GUl; garcia in place with yellow urine Neuro: awake, majkes eye contact, but not follws commands non vernbal Assessment and Plan - Plan Sacral decub with possible underlying infection, osteomyelitis. Prior h/o ESBL E.coli on 10/24/2017. Possible HCAP GNR UTI ? ESBL given h/o ESBL. 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 Encephalopathy: strokes in hospital, optic neuritis on presentation. New issue: fungemia, C. tropicalis - persistent fungemia Persistent fever Gram negative UTI: PSAE and ESBL + Kleb Recs: cont Fluconazol Once documented blood sterility will cont fluconazole at least 2 weeks MOnitoring parameters: CBC CMP add levaquin fu P new sputum clx repeat CXR rechk blood and urine clx
[2018-01-29 00:21] LABS: Bacteria,Urine Rare /hpf; Bilirubin,Urine Negative (Negative); Clarity,Urine Hazy (Clear); Color,Urine Yellow (Yellw/Straw); Glucose,Urine (UA) 500 or Greater mg/dL (Negative); Hyaline Casts,Urine 3 /lpf (0-3); Leukocyte Esterase,Urine Trace (Negative); Mucus,Urine Few /lpf (Occasional); Nitrite,Urine Negative (Negative); Specific Gravity,Urine 1.011 (1.002-1.035)
[2018-01-29] MEDS: Acetaminophen 325 MG Tablet PO PRN (02:33)
--- NOTE | 2018-01-29 09:18 | P.PN ---
Physical Exam Vital signs: Vital Signs 01/28/18 11:54 01/28/18 12:00 01/28/18 12:44 Temperature 101.7 F H Pulse Rate 107 H 99 H 104 H Respiratory Rate 20 Blood Pressure 98/56 L Pulse Oximetry 98 01/28/18 18:00 01/28/18 20:00 01/28/18 21:16 Temperature 99.9 F H 98.6 F Pulse Rate 102 H 98 H 100 H Respiratory Rate 18 18 20 Blood Pressure 107/58 L 114/56 L Pulse Oximetry 98 99 100 01/29/18 00:00 01/29/18 04:00 01/29/18 04:29 Temperature 100.3 F H 99.7 F H Pulse Rate 99 H 94 H Respiratory Rate 18 18 Blood Pressure 106/57 L 109/56 L Pulse Oximetry 99 100 99 01/29/18 05:15 Temperature 98.8 F Pulse Rate Respiratory Rate Blood Pressure Pulse Oximetry Intake & Output 01/28/18 01/29/18 01/29/18 18:59 06:59 18:59 Intake Total 100 / 100 250 / 250 Output Total 535 / 535 400 / 400 Balance -435 / -435 -150 / -150 Weight 79.3 kg Intake: IV 100 / 100 250 / 250 Levaquin 750 mg Premix Inj 150 150 / 150 ML @ 100 mls/hr IV.SIG Q24H [facility] Rx#:[id number] Merrem Inj 1,000 MG In NS Inj 100 / 100 100 / 100 100 ML @ 200 mls/hr IV.SIG Q12H [facility] Rx#:[id number] Output: Urine 375 / 375 400 / 400 Chest Tube Drainage 160 / 160 Right Mid-Axillary Chest 160 / 160 Other: # Bowel Movements 1 Narrative: Subjective: In bed, appears in nad. No more vomiting. Tube feedings restarting and tolerates well. Appears at the baseline. Noted high grade fevers 8/3. With low grade fevers overnight Physical Exam GENERAL: No acute distress, awake and alert SKIN: back with sacral decubitus- deep edges no necrotic tissue, debrided at bedside 01/20- by Dr. Upton NECK: Trach in place. CARDIOVASCULAR: Regular rate and rhythm without murmurs, gallops, or rubs. RESPIRATORY: Breath sounds equal bilaterally. No accessory muscle use. GASTROINTESTINAL: Abdomen soft, non-tender, nondistended. +PEG tube in place : Garcia in place- placed 01/21 MUSCULOSKELETAL: No cyanosis, or edema. NEURO: neuro status at baseline- unchanged Assessment and Plan This is a 77-year-old male who initially presented with vision changes with concern for optic neuritis versus temporal arteritis. Hospital course complicated by NSTEMI, E. coli urinary tract infection, rectal bleeding with acute anemia. He became lethargic, admitted to the intensive care unit and found to have CVA. CTA head and neck revealed atherosclerotic disease. After giving TPA, the patient had tonic-clonic seizure and became obtunded with acute hypoxic and hypercarbic respiratory failure, intubated. Patient was then transferred to the hospitalist service when patient was more stable. 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 Repeat MRI unchanged. Patient also had seizures, EEG showed diffuse encephalopathy. -Continue statin, Ritalin. After discussion patient's daughter, she would like to try to get the patient off Keppra and hopefully will improve his mental status. She is aware that there is risk for seizures. Follow while off Keppra. Neuropsychology following. Was on steroids for optic neuritis. Encephalopathy persists, no change in mental status, family continues to be aggressive in goals -restart coumadin- pharmacy ff . f INR ID Recurrent fever - spiked again Recurrent UTI-prior history of ESBL E. coli- new culture - 01/17- Pseudomonas Sacral decub with possible underlying infection, osteomyelitis. Fungemia- repeat cultures negative x 48 hours Possible Aspiration PNA - Sacral decub has eschar with possible underlying osteomyelitis. Patient family refused surgical sacral debridement after seen by plastic surgery. Wound care and Dr. Upton following. 12/31 Wound cx: ESBL E.coli -Garcia catheter changed 01/09/2018, Urine culture on 01/09 grew Pseudomonas pansensitive, -Status post ciprofloxacin and imipenem. Echocardiogram on 01/12, no vegetation. Ophthalmology has seen the patient, no fungal keratitis or fungal eye infection. - Repeat blood cultures still growing Xenia tropicalis, switched back to fluconazole per infectious disease. Still having fever, rechecked blood culture , repeat urinalysis still shows large leukocyte esterase and pyuria, leukocytosis increasing, CTT still in position with increased right-sided pleural effusion. - ID ff - Started on meropenem, and vancomycin. Continue Diflucan, once documented blood sterility, will continue fluconazole for at least 2 weeks whether oral or IV. Follow-up repeat blood culture. - FF up final urine cultures- 01/17- growing Pseudomonas - final s still pending - Blood cultures from 01/16 negative so far - restarted TF- tolerating well - wound care daily- per wound care team recommendations- S/P extensive bedside debridement 01/[address] Salazar - 01/26/18 check CXR - no significant change, KUB- no acute findings Acute on chronic respiratory failure status post tracheostomy- currently on 28% T piece Bilateral Pleural effusion, with healthcare associated pneumonia - Pigtail catheters in place- left chest tube was removed 01/19 - right pigtail catheter still in place pleural fluid cultures negative consistent with transudative effusion. bronchodilators, pulmonary toilet. pulmonary following. Repeat chest x-ray- unchanged - minimal secretions - trach care- Acute renal failure on top of chronic kidney disease HYpernatremia- HYperkalemia - resolved -creatinine stabilizing ff UO and BMP - continue on 06/29 NS- Skip [employer] ff. d/w staff- to give free water /PEG- reviewed EMR- not given - Kidney ultrasound unremarkable. - Nephrology ff - creatinine- stable - ff CMP in am Urinary retention - garcia placed 01/21 DM type 2 - A1C 9.6, BGs still high, - Levemir increased to 15 units twice a day on 01/17/2018, cont sliding scale insulin and adjust dose However the patient was vomited tube feeds on hols Hold levemir. KUB ordered non specific findings. CHRONIC RESOLVED ISSUES: Scrotal Edema/ulcerations - seen by Urology: continue wcatheter as needed, scrotal elevation NSTEMI Echo 10/19: LV systolic function is moderately reduced, EF 40-45%. continue Coreg and statin. Anemia secondary to GI bleed- Status post EGD colonoscopy. GI has signed off, patient with healed rectal ulcers and hemorrhoids. Continue Pepcid. Noted Vomiting on/off - TF held and rn clinical documentation specialist consulted, tube feeding diet changed per rn clinical documentation specialist recommendations - abdominal exam- benign, soft with good bowel sounds -restart tube feeds- Vital 1.5 goal of 65 - KUB unremarkable - check CMP in am- LFTs GI prophylaxis- on Pepcid DVT prophylaxis-on coumadin- INR therapeutic - pharmacy dosing 01/07 per long discussion with patient's daughter - [facility] plan- she says it's difficult for them to take her home- working - SNF- no insurance- patient here visiting from [place] when this unfortunate event happened Discussed with the nurse - Urinary Catheter Management Straight Cath placed during this visit: yes Urethral indwelling: Yes Reason for continuing: Acute urinary retention Insertion date: 01/21/18 Insertion time: 08:00 Indwelling Urethral Catheter Cath placed during this visit: yes, but has since been removed by the nurse Urethral indwelling: Yes Reason for continuing: Acute urinary retention Insertion date: 01/21/18 Insertion time: 16:18 Removal date: 01/20/18 Removal time: 15:15 Results - Labs CBC & Chem 7: 01/27/18 07:02 01/27/18 07:02 Laboratory Results - last 24 hr 01/28/18 01/28/18 01/28/18 09:50 13:17 18:17 POC Glucose 226 H 269 H 277 H Urine Color Urine Clarity Urine pH Ur Specific [place] Urine Protein Urine Glucose (UA) Urine Ketones Urine Occult Blood Urine Nitrate Urine Bilirubin Urine Urobilinogen Ur Leukocyte Esterase Urine RBC Urine WBC Urine Bacteria Hyaline Casts Urine Mucus Micro UA Comment Urine Culture Comments 01/28/18 01/28/18 01/29/18 22:51 23:15 07:33 POC Glucose 257 H 293 H Urine Color Yellow Urine Clarity Hazy H Urine pH 5.0 Ur Specific [place] 1.011 Urine Protein 30 H Urine Glucose (UA) 500 or greater Urine Ketones Negative Urine Occult Blood Small H Urine Nitrate Negative Urine Bilirubin Negative Urine Urobilinogen Less than 2 Ur Leukocyte Esterase Trace H Urine RBC 1 Urine WBC 7 H Urine Bacteria Rare H Hyaline Casts 3 Urine Mucus Few H Micro UA Comment Cath-culture ind Urine Culture Comments Cath-cult indicated Microbiology 01/27/18 06:00 Catheterized Urine Urine Culture - Preliminary No growth in 24 hours 01/26/18 09:16 Sputum - Tracheal Aspirate Gram Stain - Final 01/26/18 09:16 Sputum - Tracheal Aspirate Sputum Culture - Preliminary gram negative rods 01/26/18 11:35 Blood - Peripheral Aerobic Blood Culture - Preliminary No growth in 2 days 01/26/18 11:35 Blood - Peripheral Anaerobic Blood Culture - Preliminary No growth in 2 days 01/26/18 11:45 Blood - Peripheral Aerobic Blood Culture - Preliminary No growth in 2 days 01/26/18 11:45 Blood - Peripheral Anaerobic Blood Culture - Preliminary No growth in 2 days - Imaging Impressions Chest X-Ray 01/28/18 06:00 CONCLUSION: No significant interval change. Assessment and Plan - Assessment (1) Encephalopathy Code(s): G93.40 - Encephalopathy, unspecified Status: Acute (2) CVA (cerebral vascular accident) Code(s): I63.9 - Cerebral infarction, unspecified Status: Acute (3) Wound of sacral region Code(s): S31.000A - Unspecified open wound of lower back and pelvis without penetration into retroperitoneum, initial encounter Status: Acute (4) NSTEMI (non-ST elevated myocardial infarction) Code(s): I21.4 - Non-ST elevation (NSTEMI) myocardial infarction Status: Resolved (5) Anemia Code(s): D64.9 - Anemia, unspecified Status: Acute (6) Respiratory failure with hypoxia and hypercapnia Code(s): J96.91 - Respiratory failure, unspecified with hypoxia; J96.92 - Respiratory failure, unspecified with hypercapnia Status: Resolved (7) Optic neuritis Code(s): H46.9 - Unspecified optic neuritis Status: Resolved (5) Anemia Qualifiers: Anemia type: unspecified type Qualified Code(s): D64.9 - Anemia, unspecified
[2018-01-29 09:32] LABS: INR 2.7 Ratio; Prothrombin Time 27.6 sec (9.8-11.6)
[2018-01-29] MEDS: Insulin Detemir Inj 1,000 UNIT/10 ML Vial SQ SCH ×2 (10:05→23:40)
[2018-01-29] MEDS: Insulin NovoLIN Regular Correctional Sugar Inj SQ SCH ×4 (10:07→23:41)
[2018-01-29] MEDS: Polyethylene Glycol 3350 17 GM Packet PO SCH (10:08)
[2018-01-29] MEDS: Famotidine 20 MG Tablet PO SCH ×2 (10:08→22:27)
[2018-01-29] MEDS: Hydrocortisone Acetate 25 MG Supp RECTAL SCH ×2 (10:09→22:29)
[2018-01-29] MEDS: Collagenase Oint 30 GM Tube TOPICAL SCH (10:10)
[2018-01-30] MEDS: Insulin NovoLIN Regular Correctional Sugar Inj SQ SCH ×3 (06:49→17:56)
[2018-01-30] MEDS: Famotidine 20 MG Tablet PO SCH ×2 (08:36→21:58)
[2018-01-30] MEDS: Insulin Detemir Inj 1,000 UNIT/10 ML Vial SQ SCH ×2 (08:37→22:17)
[2018-01-30] MEDS: Collagenase Oint 30 GM Tube TOPICAL SCH (08:38)
[2018-01-30] MEDS: Polyethylene Glycol 3350 17 GM Packet PO SCH (08:39)
[2018-01-30] MEDS: Hydrocortisone Acetate 25 MG Supp RECTAL SCH ×2 (08:39→21:59)
[2018-01-30 09:40] LABS: INR 2.6 Ratio; Prothrombin Time 25.8 sec (9.8-11.6)
--- NOTE | 2018-01-30 09:48 | P.PN ---
Physical Exam Vital signs: Vital Signs 01/29/18 12:00 01/29/18 16:00 01/29/18 20:00 Temperature 98.3 F 98.4 F 99.1 F Pulse Rate 97 H 97 H 98 H Respiratory Rate 24 24 18 Blood Pressure 108/55 L 119/60 110/65 Pulse Oximetry 99 99 99 01/29/18 21:05 01/30/18 00:00 01/30/18 04:00 Temperature 98.5 F 98.9 F Pulse Rate 101 H 101 H 101 H Respiratory Rate 22 18 18 Blood Pressure 120/67 104/59 L Pulse Oximetry 99 98 98 01/30/18 04:50 01/30/18 08:00 Temperature 98.4 F Pulse Rate 100 H Respiratory Rate 20 Blood Pressure 112/63 Pulse Oximetry 99 98 Intake & Output 01/29/18 01/30/18 01/30/18 18:59 06:59 18:59 Intake Total 300 / 300 1150 / 1150 Output Total 1051 / 1051 1100 / 1100 Balance -751 / -751 50 / 50 Weight 72.8 kg Intake: IV 300 / 300 300 / 300 Diflucan 400 mg Premix Bag 200 200 / 200 200 / 200 ML @ 100 mls/hr IV.SIG Q24H EDE Rx#:[id number] Merrem Inj 1,000 MG In NS Inj 100 / 100 100 / 100 100 ML @ 200 mls/hr IV.SIG Q12H EDE Rx#:[id number] Tube Feeding 700 / 700 Tube Irrigant 150 / 150 Output: Urine 450 / 450 1100 / 1100 Stool 1 / 1 Urine Amount (Catheter) 600 / 600 Indwelling Urethral Catheter 600 / 600 Other: Date of Last Bowel Movement 01/29/18 01/29/18 01/30/18 # Bowel Movements 2 # Incontinent Bowel Movements 1 Narrative: Subjective: In bed, appears in nad. No vomiting No fevers overnight. Family wants to talk with family support specialist Dr. Bernal Physical Exam GENERAL: No acute distress, awake and alert SKIN: back with sacral decubitus- deep edges no necrotic tissue, debrided at bedside 01/20- by Dr. Upton NECK: Trach in place. CARDIOVASCULAR: Regular rate and rhythm without murmurs, gallops, or rubs. RESPIRATORY: Breath sounds equal bilaterally. No accessory muscle use. GASTROINTESTINAL: Abdomen soft, non-tender, nondistended. +PEG tube in place : Garcia in place- placed 01/21 MUSCULOSKELETAL: No cyanosis, or edema. NEURO: neuro status at baseline- unchanged Assessment and Plan This is a 77-year-old male who initially presented with vision changes with concern for optic neuritis versus temporal arteritis. Hospital course complicated by NSTEMI, E. coli urinary tract infection, rectal bleeding with acute anemia. He became lethargic, admitted to the intensive care unit and found to have CVA. CTA head and neck revealed atherosclerotic disease. After giving TPA, the patient had tonic-clonic seizure and became obtunded with acute hypoxic and hypercarbic respiratory failure, intubated. Patient was then transferred to the hospitalist service when patient was more stable. 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 Repeat MRI unchanged. Patient also had seizures, EEG showed diffuse encephalopathy. -Continue statin, Ritalin. After discussion patient's daughter, she would like to try to get the patient off Keppra and hopefully will improve his mental status. She is aware that there is risk for seizures. Follow while off Keppra. Neuropsychology following. Was on steroids for optic neuritis. Encephalopathy persists, no change in mental status, family continues to be aggressive in goals -restart coumadin- pharmacy ff . f INR ID Recurrent fever - spiked again Recurrent UTI-prior history of ESBL E. coli- new culture - 01/17- Pseudomonas Sacral decub with possible underlying infection, osteomyelitis. Fungemia- repeat cultures negative x 48 hours Possible Aspiration PNA - Sacral decub has eschar with possible underlying osteomyelitis. Patient family refused surgical sacral debridement after seen by plastic surgery. Wound care and Dr. Upton following. 12/31 Wound cx: ESBL E.coli -Garcia catheter changed 01/09/2018, Urine culture on 01/09 grew Pseudomonas pansensitive, -Status post ciprofloxacin and imipenem. Echocardiogram on 01/12, no vegetation. Ophthalmology has seen the patient, no fungal keratitis or fungal eye infection. - Repeat blood cultures still growing Xenia tropicalis, switched back to fluconazole per infectious disease. Still having fever, rechecked blood culture , repeat urinalysis still shows large leukocyte esterase and pyuria, leukocytosis increasing, CTT still in position with increased right-sided pleural effusion. - ID ff - Started on meropenem, and vancomycin. Continue Diflucan, once documented blood sterility, will continue fluconazole for at least 2 weeks whether oral or IV. Follow-up repeat blood culture. - FF up final urine cultures- 01/17- growing Pseudomonas - final s still pending - Blood cultures from 01/16 negative so far - restarted TF- tolerating well - wound care daily- per wound care team recommendations- S/P extensive bedside debridement 01/[address] Salazar - 01/26/18 check CXR - no significant change, KUB- no acute findings Acute on chronic respiratory failure status post tracheostomy- currently on 28% T piece Bilateral Pleural effusion, with healthcare associated pneumonia - Pigtail catheters in place- left chest tube was removed 01/19 - right pigtail catheter still in place pleural fluid cultures negative consistent with transudative effusion. bronchodilators, pulmonary toilet. pulmonary following. Repeat chest x-ray- unchanged - minimal secretions - trach care- Acute renal failure on top of chronic kidney disease HYpernatremia- HYperkalemia - resolved -creatinine stabilizing ff UO and BMP - continue on 06/29 NS- Customer Service Correspondence Clerk ff. d/w staff- to give free water /PEG- reviewed EMR- not given - Kidney ultrasound unremarkable. - Nephrology ff - creatinine- stable - ff CMP in am Urinary retention - garcia placed 01/21 DM type 2 - A1C 9.6, BGs still high, - Levemir increased to 15 units twice a day on 01/17/2018, cont sliding scale insulin and adjust dose However the patient was vomited tube feeds on hols Hold levemir. KUB ordered non specific findings. CHRONIC RESOLVED ISSUES: Scrotal Edema/ulcerations - seen by Urology: continue wcatheter as needed, scrotal elevation NSTEMI Echo 10/19: LV systolic function is moderately reduced, EF 40-45%. continue Coreg and statin. Anemia secondary to GI bleed- Status post EGD colonoscopy. GI has signed off, patient with healed rectal ulcers and hemorrhoids. Continue Pepcid. 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- she says it's difficult for them to take her home- working - SNF- no insurance- patient here visiting from [place] when this unfortunate event happened Discussed with the nurse - Urinary Catheter Management Straight Cath placed during this visit: yes Urethral indwelling: Yes Reason for continuing: Acute urinary retention Insertion date: 01/21/18 Insertion time: 08:00 Indwelling Urethral Catheter Cath placed during this visit: yes, but has since been removed by the nurse Urethral indwelling: Yes Reason for continuing: Severe pressure ulcer/wound Insertion date: 01/21/18 Insertion time: 16:18 Removal date: 01/20/18 Removal time: 15:15 Results - Labs CBC & Chem 7: 01/27/18 07:02 01/27/18 07:02 Laboratory Results - last 24 hr 01/29/18 01/29/18 01/29/18 12:32 17:50 23:30 PT INR POC Glucose 287 H 290 H 275 H 01/30/18 01/30/18 06:43 08:59 PT 25.8 H INR 2.6 POC Glucose 295 H Microbiology 01/28/18 23:15 Catheterized Urine Urine Culture - Preliminary Results Pending 01/26/18 09:16 Sputum - Tracheal Aspirate Gram Stain - Final 01/26/18 09:16 Sputum - Tracheal Aspirate Sputum Culture - Final Stenotrophomonas maltophilia 01/26/18 11:35 Blood - Peripheral Aerobic Blood Culture - Preliminary No growth in 3 days 01/26/18 11:35 Blood - Peripheral Anaerobic Blood Culture - Preliminary No growth in 3 days 01/26/18 11:45 Blood - Peripheral Aerobic Blood Culture - Preliminary No growth in 3 days 01/26/18 11:45 Blood - Peripheral Anaerobic Blood Culture - Preliminary No growth in 3 days 01/27/18 06:00 Catheterized Urine Urine Culture - Final No growth in 48 hours Assessment and Plan - Assessment (1) Encephalopathy Code(s): G93.40 - Encephalopathy, unspecified Status: Acute (2) CVA (cerebral vascular accident) Code(s): I63.9 - Cerebral infarction, unspecified Status: Acute (3) Wound of sacral region Code(s): S31.000A - Unspecified open wound of lower back and pelvis without penetration into retroperitoneum, initial encounter Status: Acute (4) NSTEMI (non-ST elevated myocardial infarction) Code(s): I21.4 - Non-ST elevation (NSTEMI) myocardial infarction Status: Resolved (5) Anemia Code(s): D64.9 - Anemia, unspecified Status: Acute (6) Respiratory failure with hypoxia and hypercapnia Code(s): J96.91 - Respiratory failure, unspecified with hypoxia; J96.92 - Respiratory failure, unspecified with hypercapnia Status: Resolved (7) Optic neuritis Code(s): H46.9 - Unspecified optic neuritis Status: Resolved (5) Anemia Qualifiers: Anemia type: unspecified type Qualified Code(s): D64.9 - Anemia, unspecified
--- NOTE | 2018-01-30 14:07 | P.PNPL ---
Subjective Interval history: 77 YO male with RF,Trach, Encephalopathy On trach collar Daughter at BS Tolerates TF Physical Exam Vital signs: Vital Signs 01/29/18 16:00 01/29/18 20:00 01/29/18 21:05 Temperature 98.4 F 99.1 F Pulse Rate 97 H 98 H 101 H Respiratory Rate 24 18 22 Blood Pressure 119/60 110/65 Pulse Oximetry 99 99 99 01/30/18 00:00 01/30/18 04:00 01/30/18 04:50 Temperature 98.5 F 98.9 F Pulse Rate 101 H 101 H Respiratory Rate 18 18 Blood Pressure 120/67 104/59 L Pulse Oximetry 98 98 99 01/30/18 08:00 Temperature 98.4 F Pulse Rate 103 H Respiratory Rate 20 Blood Pressure 112/63 Pulse Oximetry 98 Intake & Output 01/29/18 01/30/18 01/30/18 18:59 06:59 18:59 Intake Total 300 / 300 1150 / 1150 Output Total 1051 / 1051 1100 / 1100 100 / 100 Balance -751 / -751 50 / 50 -100 / -100 Weight 72.8 kg Intake: IV 300 / 300 300 / 300 Diflucan 400 mg Premix Bag 200 200 / 200 200 / 200 ML @ 100 mls/hr IV.SIG Q24H EDE Rx#:[id number] Merrem Inj 1,000 MG In NS Inj 100 / 100 100 / 100 100 ML @ 200 mls/hr IV.SIG Q12H EDE Rx#:[id number] Tube Feeding 700 / 700 Tube Irrigant 150 / 150 Output: Urine 450 / 450 1100 / 1100 Stool 1 / 1 Urine Amount (Catheter) 600 / 600 Indwelling Urethral Catheter 600 / 600 Chest Tube Drainage 100 / 100 Right 100 / 100 Other: Date of Last Bowel Movement 01/29/18 01/29/18 01/30/18 # Bowel Movements 2 1 # Incontinent Bowel Movements 1 GENERAL: Frail elderly male, mild sob SKIN: Warm and dry. HEAD: Normocephalic. EYES: No scleral icterus. No injection or drainage. NECK: Supple, trachea midline. No JVD or lymphadenopathy. trach in place CARDIOVASCULAR: Regular rate and rhythm without murmurs, gallops, or rubs. RESPIRATORY: Breath sounds equal bilaterally. No accessory muscle use. GASTROINTESTINAL: Abdomen soft, non-tender, nondistended. has PEG MUSCULOSKELETAL: No cyanosis, or edema. BACK: Nontender without obvious deformity. No CVA tenderness. - Urinary Catheter Management Straight Cath placed during this visit: yes Urethral indwelling: Yes Reason for continuing: Acute urinary retention Insertion date: 01/21/18 Insertion time: 08:00 Indwelling Urethral Catheter Cath placed during this visit: yes, but has since been removed by the nurse Urethral indwelling: Yes Reason for continuing: Severe pressure ulcer/wound Insertion date: 01/21/18 Insertion time: 16:18 Removal date: 01/20/18 Removal time: 15:15 Assessment and Plan - Plan IMPRESSION: RF, s/p Trach Encephalopathy S/P CT PLAN: Cont trach collar Aerosol nebs Tube Feeding Cont TF will FU in AM. DW Daughter at
[2018-01-31] MEDS: Insulin NovoLIN Regular Correctional Sugar Inj SQ SCH ×4 (00:34→17:01)
[2018-01-31] MEDS: Acetaminophen 325 MG Tablet PO PRN ×2 (06:56→20:49)
[2018-01-31 07:22] LABS: Baso % (Auto) 0.5 % (0.0-2.0); Eos # (Auto) 0.2 th/mm3 (0.0-0.4); Eos % (Auto) 2.6 % (0.0-4.0); Hematocrit 24.6 % (39.0-51.0); Hemoglobin 7.9 gm/dL (13.0-17.0); Lymph # (Auto) 3.4 th/mm3 (1.0-4.8); Mean Corpuscular HGB Conc 32.1 % (32.0-36.0); Mean Corpuscular Volume 87.1 fL (80.0-100.0); Mono # (Auto) 0.8 th/mm3 (0.0-0.9); Mono % (Auto) 8.6 % (0.0-8.0); Neut # (Auto) 4.5 th/mm3 (1.8-7.7); Neut % (Auto) 50.3 % (16.0-70.0); Platelet Count 373 th/mm3 (150-450); Red Blood Count 2.82 mil/mm3 (4.50-5.90); Red Cell Distribution Width 19.4 % (11.6-17.2)
[2018-01-31 07:28] LABS: INR 2.3 Ratio; Prothrombin Time 22.8 sec (9.8-11.6)
[2018-01-31 07:50] LABS: Alanine Aminotransferase 87 U/L (12-78); Anion Gap 6 meq/L (5-15); Aspartate Aminotransferase 123 U/L (15-37); Blood Urea Nitrogen 50 mg/dL (7-18); Calcium 7.6 mg/dL (8.5-10.1); Carbon Dioxide 25.8 meq/L (21.0-32.0); Chloride 117 meq/L (98-107); Glomerular Filtration Rate 60 mL/min (>89); Glucose,Random 194 mg/dL (74-106); Potassium 4.5 meq/L (3.5-5.1); Sodium 149 meq/L (136-145)
[2018-01-31 07:53] LABS: Alkaline Phosphatase 185 U/L (45-117); Total Protein 6.4 g/dL (6.4-8.2)
[2018-01-31] MEDS: Collagenase Oint 30 GM Tube TOPICAL SCH (08:13)
[2018-01-31] MEDS: Famotidine 20 MG Tablet PO SCH ×2 (08:13→20:49)
[2018-01-31] MEDS: Insulin Detemir Inj 1,000 UNIT/10 ML Vial SQ SCH (08:17)
--- NOTE | 2018-01-31 09:20 | P.PN ---
Physical Exam Vital signs: Vital Signs 01/30/18 12:00 01/30/18 16:00 01/30/18 20:00 Temperature 98.2 F 97.9 F 99.3 F Pulse Rate 94 H 98 H 100 H Respiratory Rate 20 20 18 Blood Pressure 104/58 L 97/54 L 110/56 L Pulse Oximetry 100 100 98 01/30/18 22:14 01/31/18 00:00 01/31/18 04:00 Temperature 98.9 F 100.4 F H Pulse Rate 100 H 103 H 102 H Respiratory Rate 20 18 Blood Pressure 109/61 103/55 L Pulse Oximetry 95 97 96 01/31/18 08:44 Temperature Pulse Rate 107 H Respiratory Rate 20 Blood Pressure Pulse Oximetry 97 Intake & Output 01/30/18 01/31/18 01/31/18 18:59 06:59 18:59 Intake Total 100 / 100 1150 / 1150 Output Total 820 / 820 850 / 850 Balance -720 / -720 300 / 300 Weight 72.8 kg Intake: IV 100 / 100 300 / 300 Diflucan 400 mg Premix Bag 200 200 / 200 ML @ 100 mls/hr IV.SIG Q24H EDE Rx#:[id number] Merrem Inj 1,000 MG In NS Inj 100 / 100 100 / 100 100 ML @ 200 mls/hr IV.SIG Q12H EDE Rx#:[id number] Tube Feeding 700 / 700 Tube Irrigant 150 / 150 Output: Urine 500 / 500 850 / 850 Chest Tube Drainage 320 / 320 Right 320 / 320 Other: Date of Last Bowel Movement 01/30/18 01/30/18 # Bowel Movements 1 1 # Incontinent Bowel Movements 1 Narrative: Subjective: In bed, appears in nad. No more vomiting BP into a lower side bolus 500 cc . Monitor VS BS also noted elevated increased detemir inslin to 20 U BID No fevers overnight. Family wants to talk with road advisor Dr. Bernal for capping trach Physical Exam GENERAL: No acute distress, awake and alert SKIN: back with sacral decubitus- deep edges no necrotic tissue, debrided at bedside 01/20- by Dr. Upton NECK: Trach in place. CARDIOVASCULAR: Regular rate and rhythm without murmurs, gallops, or rubs. RESPIRATORY: Breath sounds equal bilaterally. No accessory muscle use. GASTROINTESTINAL: Abdomen soft, non-tender, nondistended. +PEG tube in place : Garcia in place- placed 01/21 MUSCULOSKELETAL: No cyanosis, or edema. NEURO: neuro status at baseline- unchanged Assessment and Plan This is a 77-year-old male who initially presented with vision changes with concern for optic neuritis versus temporal arteritis. Hospital course complicated by NSTEMI, E. coli urinary tract infection, rectal bleeding with acute anemia. He became lethargic, admitted to the intensive care unit and found to have CVA. CTA head and neck revealed atherosclerotic disease. After giving TPA, the patient had tonic-clonic seizure and became obtunded with acute hypoxic and hypercarbic respiratory failure, intubated. Patient was then transferred to the hospitalist service when patient was more stable. 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 Repeat MRI unchanged. Patient also had seizures, EEG showed diffuse encephalopathy. -Continue statin, Ritalin. After discussion patient's daughter, she would like to try to get the patient off Keppra and hopefully will improve his mental status. She is aware that there is risk for seizures. Follow while off Keppra. Neuropsychology following. Was on steroids for optic neuritis. Encephalopathy persists, no change in mental status, family continues to be aggressive in goals -restart coumadin- pharmacy ff . f INR ID Recurrent fever - spiked again Recurrent UTI-prior history of ESBL E. coli- new culture - 01/17- Pseudomonas Sacral decub with possible underlying infection, osteomyelitis. Fungemia- repeat cultures negative x 48 hours Possible Aspiration PNA - Sacral decub has eschar with possible underlying osteomyelitis. Patient family refused surgical sacral debridement after seen by plastic surgery. Wound care and Dr. Upton following. 12/31 Wound cx: ESBL E.coli -Garcia catheter changed 01/09/2018, Urine culture on 01/09 grew Pseudomonas pansensitive, -Status post ciprofloxacin and imipenem. Echocardiogram on 01/12, no vegetation. Ophthalmology has seen the patient, no fungal keratitis or fungal eye infection. - Repeat blood cultures still growing Xenia tropicalis, switched back to fluconazole per infectious disease. Still having fever, rechecked blood culture , repeat urinalysis still shows large leukocyte esterase and pyuria, leukocytosis increasing, CTT still in position with increased right-sided pleural effusion. - ID ff - Started on meropenem, and vancomycin. Continue Diflucan, once documented blood sterility, will continue fluconazole for at least 2 weeks whether oral or IV. Follow-up repeat blood culture. - FF up final urine cultures- 01/17- growing Pseudomonas - final s still pending - Blood cultures from 01/16 negative so far - restarted TF- tolerating well - wound care daily- per wound care team recommendations- S/P extensive bedside debridement 01/[address] Salazar - 01/26/18 check CXR - no significant change, KUB- no acute findings Still with spikes of fevers, ID ff added levaquin Acute on chronic respiratory failure status post tracheostomy- currently on 28% T piece Bilateral Pleural effusion, with healthcare associated pneumonia - Pigtail catheters in place- left chest tube was removed 01/19 - right pigtail catheter still in place pleural fluid cultures negative consistent with transudative effusion. bronchodilators, pulmonary toilet. pulmonary following. Repeat chest x-ray- unchanged - minimal secretions - trach care- Acute renal failure on top of chronic kidney disease HYpernatremia- HYperkalemia - resolved -creatinine stabilizing ff UO and BMP - continue on 06/29 NS- Needle [employer] F[employer] Goods Supervisor ff. d/w staff- to give free water /PEG- reviewed EMR- not given - Kidney ultrasound unremarkable. - Nephrology ff - creatinine- stable - ff CMP in am Urinary retention - garcia placed 01/21 DM type 2 - A1C 9.6, BGs still high, - Levemir increased to 15 units twice a day on 01/17/2018, cont sliding scale insulin and adjust dose However the patient was vomited tube feeds on hols Hold levemir. KUB ordered non specific findings. CHRONIC RESOLVED ISSUES: Scrotal Edema/ulcerations - seen by Urology: continue wcatheter as needed, scrotal elevation NSTEMI Echo 10/19: LV systolic function is moderately reduced, EF 40-45%. continue Coreg and statin. Anemia secondary to GI bleed- Status post EGD colonoscopy. GI has signed off, patient with healed rectal ulcers and hemorrhoids. Continue Pepcid. Noted Vomiting on/off - TF held and engagement quality consultant consulted, tube feeding diet changed per engagement quality consultant recommendations - abdominal exam- benign, soft with good bowel sounds -restart tube feeds- Vital 1.5 goal of 65 - KUB unremarkable - check CMP in am- LFTs GI prophylaxis- on Pepcid DVT prophylaxis-on coumadin- INR therapeutic - pharmacy dosing 01/07 per long discussion with patient's daughter - lobsterman plan- she says it's difficult for them to take her home- working - SNF- no insurance- patient here visiting from [place] when this unfortunate event happened Discussed with the nurse, family at bedside, Dr Yamini byers 01/31/18 BP into a lower side bolus 500 cc . Monitor VS BS also noted elevated increased detemir inslin to 20 U BID Family wants to talk with road advisor Dr. Bernal for capping trach - Urinary Catheter Management Straight Cath placed during this visit: yes Urethral indwelling: Yes Reason for continuing: Acute urinary retention Insertion date: 01/21/18 Insertion time: 08:00 Indwelling Urethral Catheter Cath placed during this visit: yes, but has since been removed by the nurse Urethral indwelling: Yes Reason for continuing: Severe pressure ulcer/wound Insertion date: 01/21/18 Insertion time: 16:18 Removal date: 01/20/18 Removal time: 15:15 Results - Labs CBC & Chem 7: 01/31/18 07:02 01/31/18 07:02 Laboratory Results - last 24 hr 01/30/18 01/30/18 01/30/18 08:59 11:40 17:41 WBC RBC Hgb Hct MCV MCH MCHC RDW Plt Count MPV Neut % (Auto) Lymph % (Auto) Isabela % (Auto) Eos % (Auto) Baso % (Auto) Neut # (Auto) Lymph # (Auto) Isabel[place] # (Auto) Eos # (Auto) Baso # (Auto) WBC Differential Differential Comment PT 25.8 H INR 2.6 Sodium Potassium Chloride Carbon Dioxide Anion Gap BUN Creatinine Estimated GFR POC Glucose 296 H 307 H Random Glucose Calcium Total Bilirubin AST ALT Alkaline Phosphatase Total Protein Albumin 01/31/18 01/31/18 01/31/18 00:22 06:29 07:02 WBC RBC Hgb Hct MCV MCH MCHC RDW Plt Count MPV Neut % (Auto) Lymph % (Auto) Isabel[place] % (Auto) Eos % (Auto) Baso % (Auto) Neut # (Auto) Lymph # (Auto) Isabel[place] # (Auto) Eos # (Auto) Baso # (Auto) WBC Differential Differential Comment PT 22.8 H INR 2.3 Sodium Potassium Chloride Carbon Dioxide Anion Gap BUN Creatinine Estimated GFR POC Glucose 267 H 228 H Random Glucose Calcium Total Bilirubin AST ALT Alkaline Phosphatase Total Protein Albumin 01/31/18 01/31/18 07:02 07:02 WBC 9.0 RBC 2.82 L Hgb 7.9 L Hct 24.6 L MCV 87.1 MCH 28.0 MCHC 32.1 RDW 19.4 H Plt Count 373 MPV 8.0 Neut % (Auto) 50.3 Lymph % (Auto) 38.0 Isabela % (Auto) 8.6 H Eos % (Auto) 2.6 Baso % (Auto) 0.5 Neut # (Auto) 4.5 Lymph # (Auto) 3.4 Isabela # (Auto) 0.8 Eos # (Auto) 0.2 Baso # (Auto) 0.0 WBC Differential . Differential Comment Auto diff final PT INR Sodium 149 H Potassium 4.5 Chloride 117 H Carbon Dioxide 25.8 Anion Gap 6 BUN 50 H Creatinine 1.17 Estimated GFR 60 L POC Glucose Random Glucose 194 H Calcium 7.6 L Total Bilirubin 0.2 AST 123 H ALT 87 H Alkaline Phosphatase 185 H Total Protein 6.4 Albumin 1.0 L Microbiology 01/29/18 07:25 Blood - Peripheral Aerobic Blood Culture - Preliminary No growth in 1 day 01/29/18 07:25 Blood - Peripheral Anaerobic Blood Culture - Preliminary No growth in 1 day 01/29/18 07:15 Blood - Peripheral Aerobic Blood Culture - Preliminary No growth in 1 day 01/29/18 07:15 Blood - Peripheral Anaerobic Blood Culture - Preliminary No growth in 1 day 01/26/18 11:35 Blood - Peripheral Aerobic Blood Culture - Preliminary No growth in 4 days 01/26/18 11:35 Blood - Peripheral Anaerobic Blood Culture - Preliminary No growth in 4 days 01/26/18 11:45 Blood - Peripheral Aerobic Blood Culture - Preliminary No growth in 4 days 01/26/18 11:45 Blood - Peripheral Anaerobic Blood Culture - Preliminary No growth in 4 days 01/28/18 23:15 Catheterized Urine Urine Culture - Final No growth in 48 hours Assessment and Plan - Assessment (1) Encephalopathy Code(s): G93.40 - Encephalopathy, unspecified Status: Acute (2) CVA (cerebral vascular accident) Code(s): I63.9 - Cerebral infarction, unspecified Status: Acute (3) Wound of sacral region Code(s): S31.000A - Unspecified open wound of lower back and pelvis without penetration into retroperitoneum, initial encounter Status: Acute (4) NSTEMI (non-ST elevated myocardial infarction) Code(s): I21.4 - Non-ST elevation (NSTEMI) myocardial infarction Status: Resolved (5) Anemia Code(s): D64.9 - Anemia, unspecified Status: Acute (6) Respiratory failure with hypoxia and hypercapnia Code(s): J96.91 - Respiratory failure, unspecified with hypoxia; J96.92 - Respiratory failure, unspecified with hypercapnia Status: Resolved (7) Optic neuritis Code(s): H46.9 - Unspecified optic neuritis Status: Resolved (5) Anemia Qualifiers: Anemia type: unspecified type Qualified Code(s): D64.9 - Anemia, unspecified
[2018-01-31] MEDS: Hydrocortisone Acetate 25 MG Supp RECTAL SCH ×2 (11:46→20:53)
[2018-01-31] MEDS: Polyethylene Glycol 3350 17 GM Packet PO SCH (11:47)
--- NOTE | 2018-01-31 12:23 | P.PNPAL ---
Reason for Visit Reason for visit: a. To assist with evaluation and management of symptoms including: pain, dyspnea, encephalopathy b. To assist medical decision maker(s) with: better understanding of current medical conditions; weighing benefits/burdens of medical treatment options; making medical treatment decisions. Subjective Subjective/Interval History: Patient minimally responsive at time of my visit; with repeated physical stimulation and verbiage from daughter, he eventually opens his eyes. He otherwise seems fairly unresponsive and does not respond to me. The daughter reports that he was more alert and more responsive a week or 2 ago " before that infection" Temp was 100.4 again this morning. His white count remains 9. Creatinine 1.17. Currently on meropenem and fluconazole. He does not appear dyspneic. Family/Friend Interactions: Lengthy discussion with daughter at the bedside. She does understand that he has been here now nearly 4 months, and she does recognize that he consistently gets weaker. I reiterated that it is highly likely that he will continue to have additional complications and setbacks until finally comes. She says she continues to pray and remains hopeful that he can get through this. I told her my opinion was that ultimately he would during this hospitalization. Advance Directives Living Will: Never completed Health Care Surrogate: Never completed Durable Power of Sericulture Teacher: Never completed Documented care wishes:: No written documentation of health care goals/preferences. . Objective Vital Signs: Vital Signs 01/30/18 16:00 01/30/18 20:00 01/30/18 22:14 Temperature 97.9 F 99.3 F Pulse Rate 98 H 100 H 100 H Respiratory Rate 20 18 20 Blood Pressure 97/54 L 110/56 L Pulse Oximetry 100 98 95 01/31/18 00:00 01/31/18 04:00 01/31/18 08:00 Temperature 98.9 F 100.4 F H 100.0 F H Pulse Rate 103 H 102 H 96 H Respiratory Rate 18 18 Blood Pressure 109/61 103/55 L 110/61 Pulse Oximetry 97 96 95 01/31/18 08:44 Temperature Pulse Rate 107 H Respiratory Rate 20 Blood Pressure Pulse Oximetry 97 Intake & Output 01/30/18 01/31/18 01/31/18 18:59 06:59 18:59 Intake Total 100 / 100 1150 / 1150 Output Total 820 / 820 850 / 850 Balance -720 / -720 300 / 300 Weight 72.8 kg Intake: IV 100 / 100 300 / 300 Diflucan 400 mg Premix Bag 200 200 / 200 ML @ 100 mls/hr IV.SIG Q24H EDE Rx#:[id number] Merrem Inj 1,000 MG In NS Inj 100 / 100 100 / 100 100 ML @ 200 mls/hr IV.SIG Q12H EDE Rx#:[id number] Tube Feeding 700 / 700 Tube Irrigant 150 / 150 Output: Urine 500 / 500 850 / 850 Chest Tube Drainage 320 / 320 Right 320 / 320 Other: Date of Last Bowel Movement 01/30/18 01/30/18 # Bowel Movements 1 1 # Incontinent Bowel Movements 1 Physical Exam: CONSTITUTIONAL/GENERAL: This is a frail elderly, ill -appearing gentleman; minimally responsive; tachycardic in a med surg bed. TUBES/LINES/DRAINS: peripheral IVs; SCDs, [place] catheter; tracheostomy, peg tube ; bilateral chest tubes. SKIN: Warm to touch. ENT: Unable to assess hearing. Nose without bleeding. Mucous membranes dry. Trach collar. CARDIOVASCULAR: Irregular rhythm. No audible murmur. Tachycardic. RESPIRATORY/CHEST: Symmetric, intermittently tachypneic, diminished to auscultation. A couple scattered rhonchi GASTROINTESTINAL: Abdomen soft, round. Bowel sounds present. NEUROLOGICAL: Does not open eyes to my voice / exam, but does open eyes after persistent stimulation from daughter. Intermittent grimace with movement. PSYCHIATRIC: Unable to assess due to level of responsiveness. . Diagnostic Tests Laboratory: Laboratory Results - last 72 hr 01/28/18 01/28/18 01/28/18 13:17 18:17 22:51 WBC RBC Hgb Hct MCV MCH MCHC RDW Plt Count MPV Neut % (Auto) Lymph % (Auto) [place] % (Auto) Eos % (Auto) Baso % (Auto) Neut # (Auto) Lymph # (Auto) [place] # (Auto) Eos # (Auto) Baso # (Auto) WBC Differential Differential Comment PT INR Sodium Potassium Chloride Carbon Dioxide Anion Gap BUN Creatinine Estimated GFR POC Glucose 269 H 277 H 257 H Random Glucose Calcium Total Bilirubin AST ALT Alkaline Phosphatase Total Protein Albumin Urine Color Urine Clarity Urine pH Ur Specific [place] Urine Protein Urine Glucose (UA) Urine Ketones Urine Occult Blood Urine Nitrate Urine Bilirubin Urine Urobilinogen Ur Leukocyte Esterase Urine RBC Urine WBC Urine Bacteria Hyaline Casts Urine Mucus Micro UA Comment Urine Culture Comments 01/28/18 01/29/18 01/29/18 23:15 07:15 07:33 WBC RBC Hgb Hct MCV MCH MCHC RDW Plt Count MPV Neut % (Auto) Lymph % (Auto) [place] % (Auto) Eos % (Auto) Baso % (Auto) Neut # (Auto) Lymph # (Auto) [place] # (Auto) Eos # (Auto) Baso # (Auto) WBC Differential Differential Comment PT 27.6 H INR 2.7 Sodium Potassium Chloride Carbon Dioxide Anion Gap BUN Creatinine Estimated GFR POC Glucose 293 H Random Glucose Calcium Total Bilirubin AST ALT Alkaline Phosphatase Total Protein Albumin Urine Color Yellow Urine Clarity Hazy H Urine pH 5.0 Ur Specific [place] 1.011 Urine Protein 30 H Urine Glucose (UA) 500 or greater Urine Ketones Negative Urine Occult Blood Small H Urine Nitrate Negative Urine Bilirubin Negative Urine Urobilinogen Less than 2 Ur Leukocyte Esterase Trace H Urine RBC 1 Urine WBC 7 H Urine Bacteria Rare H Hyaline Casts 3 Urine Mucus Few H Micro UA Comment Cath-culture ind Urine Culture Comments Cath-cult indicated 01/29/18 01/29/18 01/29/18 12:32 17:50 23:30 WBC RBC Hgb Hct MCV MCH MCHC RDW Plt Count MPV Neut % (Auto) Lymph % (Auto) [place] % (Auto) Eos % (Auto) Baso % (Auto) Neut # (Auto) Lymph # (Auto) [place] # (Auto) Eos # (Auto) Baso # (Auto) WBC Differential Differential Comment PT INR Sodium Potassium Chloride Carbon Dioxide Anion Gap BUN Creatinine Estimated GFR POC Glucose 287 H 290 H 275 H Random Glucose Calcium Total Bilirubin AST ALT Alkaline Phosphatase Total Protein Albumin Urine Color Urine Clarity Urine pH Ur Specific [place] Urine Protein Urine Glucose (UA) Urine Ketones Urine Occult Blood Urine Nitrate Urine Bilirubin Urine Urobilinogen Ur Leukocyte Esterase Urine RBC Urine WBC Urine Bacteria Hyaline Casts Urine Mucus Micro UA Comment Urine Culture Comments 01/30/18 01/30/18 01/30/18 06:43 08:59 11:40 WBC RBC Hgb Hct MCV MCH MCHC RDW Plt Count MPV Neut % (Auto) Lymph % (Auto) [place] % (Auto) Eos % (Auto) Baso % (Auto) Neut # (Auto) Lymph # (Auto) [place] # (Auto) Eos # (Auto) Baso # (Auto) WBC Differential Differential Comment PT 25.8 H INR 2.6 Sodium Potassium Chloride Carbon Dioxide Anion Gap BUN Creatinine Estimated GFR POC Glucose 295 H 296 H Random Glucose Calcium Total Bilirubin AST ALT Alkaline Phosphatase Total Protein Albumin Urine Color Urine Clarity Urine pH Ur Specific [place] Urine Protein Urine Glucose (UA) Urine Ketones Urine Occult Blood Urine Nitrate Urine Bilirubin Urine Urobilinogen Ur Leukocyte Esterase Urine RBC Urine WBC Urine Bacteria Hyaline Casts Urine Mucus Micro UA Comment Urine Culture Comments 01/30/18 01/31/18 01/31/18 17:41 00:22 06:29 WBC RBC Hgb Hct MCV MCH MCHC RDW Plt Count MPV Neut % (Auto) Lymph % (Auto) [place] % (Auto) Eos % (Auto) Baso % (Auto) Neut # (Auto) Lymph # (Auto) [place] # (Auto) Eos # (Auto) Baso # (Auto) WBC Differential Differential Comment PT INR Sodium Potassium Chloride Carbon Dioxide Anion Gap BUN Creatinine Estimated GFR POC Glucose 307 H 267 H 228 H Random Glucose Calcium Total Bilirubin AST ALT Alkaline Phosphatase Total Protein Albumin Urine Color Urine Clarity Urine pH Ur Specific [place] Urine Protein Urine Glucose (UA) Urine Ketones Urine Occult Blood Urine Nitrate Urine Bilirubin Urine Urobilinogen Ur Leukocyte Esterase Urine RBC Urine WBC Urine Bacteria Hyaline Casts Urine Mucus Micro UA Comment Urine Culture Comments 01/31/18 01/31/18 01/31/18 07:02 07:02 07:02 WBC 9.0 RBC 2.82 L Hgb 7.9 L Hct 24.6 L MCV 87.1 MCH 28.0 MCHC 32.1 RDW 19.4 H Plt Count 373 MPV 8.0 Neut % (Auto) 50.3 Lymph % (Auto) 38.0 [place] % (Auto) 8.6 H Eos % (Auto) 2.6 Baso % (Auto) 0.5 Neut # (Auto) 4.5 Lymph # (Auto) 3.4 [place] # (Auto) 0.8 Eos # (Auto) 0.2 Baso # (Auto) 0.0 WBC Differential . Differential Comment Auto diff final PT 22.8 H INR 2.3 Sodium 149 H Potassium 4.5 Chloride 117 H Carbon Dioxide 25.8 Anion Gap 6 BUN 50 H Creatinine 1.17 Estimated GFR 60 L POC Glucose Random Glucose 194 H Calcium 7.6 L Total Bilirubin 0.2 AST 123 H ALT 87 H Alkaline Phosphatase 185 H Total Protein 6.4 Albumin 1.0 L Urine Color Urine Clarity Urine pH Ur Specific [place] Urine Protein Urine Glucose (UA) Urine Ketones Urine Occult Blood Urine Nitrate Urine Bilirubin Urine Urobilinogen Ur Leukocyte Esterase Urine RBC Urine WBC Urine Bacteria Hyaline Casts Urine Mucus Micro UA Comment Urine Culture Comments Result Diagrams: 01/31/18 07:02 01/31/18 07:02 Microbiology: Microbiology 01/29/18 07:25 Aerobic Blood Culture - Preliminary Blood - Peripheral No growth in 2 days Anaerobic Blood Culture - Preliminary No growth in 2 days 01/29/18 07:15 Aerobic Blood Culture - Preliminary Blood - Peripheral No growth in 2 days Anaerobic Blood Culture - Preliminary No growth in 2 days 01/26/18 11:35 Aerobic Blood Culture - Final Blood - Peripheral No growth in 5 days Anaerobic Blood Culture - Final No growth in 5 days 01/26/18 11:45 Aerobic Blood Culture - Final Blood - Peripheral No growth in 5 days Anaerobic Blood Culture - Final No growth in 5 days 01/28/18 23:15 Urine Culture - Final Catheterized Urine No growth in 48 hours 01/26/18 09:16 Gram Stain - Final Sputum - Tracheal Aspirate Sputum Culture - Final Stenotrophomonas maltophilia 01/27/18 06:00 Urine Culture - Final Catheterized Urine No growth in 48 hours Imaging: Head MRI 01/02/18 00:00 CONCLUSION: 1. 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 2. Cerebral atrophy and chronic ischemic small vessel vasculopathy. Chest CT 01/03/18 00:00 CONCLUSION: 1. Large bilateral pleural effusions occupying more than half of the right and left hemithorax. Abdomen/Pelvis CT 01/13/18 00:00 CONCLUSION: 1. Small bilateral pleural effusions and basilar infiltrates with bilateral chest tubes in place. 2. No evidence of ascites or bowel dilatation. Abdomen/Bladder Ultrasound 01/15/18 00:00 CONCLUSION: 1. Negative renal sonogram. Abdomen X-Ray 01/26/18 00:00 CONCLUSION: Nonobstructive bowel gas pattern. Chest X-Ray 01/28/18 06:00 CONCLUSION: No significant interval change. Procedures: * 11/09/17 - Intubation * 11/11/17 - Extubated * 11/18/17 - Re-intubated * Tracheostomy * PEG tube * Bilateral chest tubes for pleural effusions 01/14/18 Assessment and Plan - Disease Oriented Problem List (1) Carotid stenosis (2) Debility (3) Aspiration pneumonia (4) Renal insufficiency (5) Diabetes (6) Optic neuritis (7) Pleural effusion (8) Anemia (9) CVA (cerebral vascular accident) (10) Hypoalbuminemia (11) Wound of sacral region (12) Status post tracheostomy (13) Fungemia Pertinent Non-Medical Issues: Psychosocial: Patient was born and raised in [place], he lives in [place]. Primary language is Luxembourgish. Patient is , retired, has 2 daughters. Highest level of education is high school. Spiritual: C[employer]. Legal: No known advanced directives have been completed. Not made available if they were completed. Ethical issues impacting care: Patient incapacitated for medical decision- making. Important Contacts: Family providing son-in-law's contact information: Avtar Ashraf . -pending information Daughter Alexandra -pending contact information Daughter Lanette -not very forthcoming with contact info. State "I am always here." Prognosis: Patient with a complicated prolonged hospitalization to include ESBL E. coli bacteremia, NSTEMI, UTI, aspiration pneumonia, GI bleed, stroke, pleural effusions, seizures. He remains encephalopathic, and is profoundly deconditioned and hypoalbuminemic. He remains quite encephalopathic and continues to be suffer from recurrent infections. Family wants him on anti- coagulants to protect agains stroke so he now has increased chance of re-bleed. Based on hospitalization to date, chances of surviving the hospital are quite low. Should he survive the hospitalization for additional weeks or months, he will remain very vulnerable to major setbacks due to his overall frailty and nutritional status. He will not be able to function independently in the future. Patient is certainly eligible for hospice services at such time that the medical decision makers are ready to opt for comfort oriented care. . Code Status: Full Code Plan: ==CODE STATUS: FULL CODE ==HEALTHCARE DECISION-MAKING: . Patient incapacitated for medical decision- making secondary to clinical condition. No reasonable probability at this time that he will recover capacity. has indicated she wants her daughters to manage medical decisions especially Mandan. does not want to participate in medical decision making. ==GOALS OF CARE: Family expresses aggressive goals. 01/31/18: Lengthy discussion with daughter at the bedside. She does understand that he has been here now nearly 4 months, and she does recognize that he consistently gets weaker. I reiterated that it is highly likely that he will continue to have additional complications and setbacks until finally comes. She says she continues to pray and remains hopeful that he can get through this. I told her my opinion was that he would in the upcoming days, weeks, or perhaps months. . ==SYMPTOMS: = * Debility: Multifactorial secondary to multiple acute on chronic illnesses and prolonged hospitalization, severe hypoalbuminemia. Remains critically ill. * Encephalopathy probably multi-factorial -- stroke, infection, medications, prolonged hospitalization, etc. Though family believes there has at times been significant improvement, he continues to appear quite encephalopathic to the medical team. * Pain: Secondary to lines, prolonged bedbound status, wounds, catheter, vascular access lines, etc. No further recommendations at this time. * Dyspnea: Initially managed with vent support. Now off vent and on trach collar. == Disposition -- Post-acute care arrangements will likely be difficult given his foreign citizenship and lack of payor source. Should he decline and goals become comfort oriented, he would certainly be a hospice candidate and would be accepted as a linsey case. ==Palliative care will continue to follow to assist with symptom management and to further clarify goals of medical treatment as the clinical course evolves. . . Time Spent Total Floor Time (mins): 41 Face to Face Time (mins): 29 >50% Time in Counseling or Coordination of Care: Yes Attestation Attestation: To help prompt me to consider important information that might be impacting today's encounter and assessment, information from prior notes written by myself or my colleagues may have been "brought forward" into today's note. My signature on this note, however, is an attestation that I personally performed the exam, history, and/or decision-making noted today, and, unless otherwise indicated, the interactions with patient, family, and staff as well as the review of records all occurred today. I also attest that the listed assessment and stated plan reflect my best clinical judgment today based on the combination of historical information, prior notes, and today's exam/ interactions. When time spent is documented, it refers only to time spent today by the signer, or if indicated, combined time spent today by collaborating physician/nurse practitioner.
[2018-01-31] MEDS ORDERED: Sodium Chlor 0.9% Inj 500 ML IV.SIG ONE (16:00)
--- NOTE | 2018-01-31 18:54 | P.PN ---
Subjective Interval history: non verbal opens eyes on occasion Physical Exam Vital signs: Vital Signs 01/30/18 20:00 01/30/18 22:14 01/31/18 00:00 Temperature 99.3 F 98.9 F Pulse Rate 100 H 100 H 103 H Respiratory Rate 18 20 18 Blood Pressure 110/56 L 109/61 Pulse Oximetry 98 95 97 01/31/18 04:00 01/31/18 08:00 01/31/18 08:44 Temperature 100.4 F H 100.0 F H Pulse Rate 102 H 96 H 107 H Respiratory Rate 18 20 Blood Pressure 103/55 L 110/61 Pulse Oximetry 96 95 97 01/31/18 12:00 01/31/18 16:00 Temperature 98.8 F 99.7 F H Pulse Rate 114 H 115 H Respiratory Rate 22 18 Blood Pressure 92/54 L 95/53 L Pulse Oximetry 98 97 Intake & Output 01/30/18 01/31/18 01/31/18 18:59 06:59 18:59 Intake Total 100 / 100 1150 / 1150 1221 / 1221 Output Total 820 / 820 850 / 850 600 / 600 Balance -720 / -720 300 / 300 621 / 621 Weight 72.8 kg Intake: IV 100 / 100 300 / 300 Diflucan 400 mg Premix Bag 200 200 / 200 ML @ 100 mls/hr IV.SIG Q24H EDE Rx#:[id number] Merrem Inj 1,000 MG In NS Inj 100 / 100 100 / 100 100 ML @ 200 mls/hr IV.SIG Q12H EDE Rx#:[id number] Tube Feeding 700 / 700 621 / 621 Tube Irrigant 150 / 150 Water Bolus Amount 600 / 600 Output: Urine 500 / 500 850 / 850 100 / 100 Urine Amount (Catheter) 500 / 500 Indwelling Urethral Catheter 500 / 500 Chest Tube Drainage 320 / 320 Right 320 / 320 Other: Date of Last Bowel Movement 01/30/18 01/30/18 # Bowel Movements 1 1 # Incontinent Bowel Movements 1 Narrative: Subjective: In bed, appears in nad. No vomiting No fevers overnight. Family wants to talk with warper fixer Dr. Bernal Physical Exam GENERAL: No acute distress, awake and alert SKIN: back with sacral decubitus- deep edges no necrotic tissue, debrided at bedside 01/20- by Dr. Upton NECK: Trach in place. CARDIOVASCULAR: Regular rate and rhythm without murmurs, gallops, or rubs. RESPIRATORY: Breath sounds equal bilaterally. No accessory muscle use. GASTROINTESTINAL: Abdomen soft, non-tender, nondistended. +PEG tube in place : Garcia in place- placed 01/21 MUSCULOSKELETAL: No cyanosis, or edema. NEURO: neuro status at baseline- unchanged Assessment and Plan This is a 77-year-old male who initially presented with vision changes with concern for optic neuritis versus temporal arteritis. Hospital course complicated by NSTEMI, E. coli urinary tract infection, rectal bleeding with acute anemia. He became lethargic, admitted to the intensive care unit and found to have CVA. CTA head and neck revealed atherosclerotic disease. After giving TPA, the patient had tonic-clonic seizure and became obtunded with acute hypoxic and hypercarbic respiratory failure, intubated. Patient was then transferred to the hospitalist service when patient was more stable. 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 Repeat MRI unchanged. Patient also had seizures, EEG showed diffuse encephalopathy. -Continue statin, Ritalin. After discussion patient's daughter, she would like to try to get the patient off Keppra and hopefully will improve his mental status. She is aware that there is risk for seizures. Follow while off Keppra. Neuropsychology following. Was on steroids for optic neuritis. Encephalopathy persists, no change in mental status, family continues to be aggressive in goals -restart coumadin- pharmacy ff . f INR ID Recurrent fever - spiked again Recurrent UTI-prior history of ESBL E. coli- new culture - 01/17- Pseudomonas Sacral decub with possible underlying infection, osteomyelitis. Fungemia- repeat cultures negative x 48 hours Possible Aspiration PNA - Sacral decub has eschar with possible underlying osteomyelitis. Patient family refused surgical sacral debridement after seen by plastic surgery. Wound care and Dr. Upton following. 12/31 Wound cx: ESBL E.coli -Garcia catheter changed 01/09/2018, Urine culture on 01/09 grew Pseudomonas pansensitive, -Status post ciprofloxacin and imipenem. Echocardiogram on 01/12, no vegetation. Ophthalmology has seen the patient, no fungal keratitis or fungal eye infection. - Repeat blood cultures still growing Xenia tropicalis, switched back to fluconazole per infectious disease. Still having fever, rechecked blood culture , repeat urinalysis still shows large leukocyte esterase and pyuria, leukocytosis increasing, CTT still in position with increased right-sided pleural effusion. - ID ff - Started on meropenem, and vancomycin. Continue Diflucan, once documented blood sterility, will continue fluconazole for at least 2 weeks whether oral or IV. Follow-up repeat blood culture. - FF up final urine cultures- 01/17- growing Pseudomonas - final s still pending - Blood cultures from 01/16 negative so far - restarted TF- tolerating well - wound care daily- per wound care team recommendations- S/P extensive bedside debridement 01/[address] Salazar - 01/26/18 check CXR - no significant change, KUB- no acute findings Acute on chronic respiratory failure status post tracheostomy- currently on 28% T piece Bilateral Pleural effusion, with healthcare associated pneumonia - Pigtail catheters in place- left chest tube was removed 01/19 - right pigtail catheter still in place pleural fluid cultures negative consistent with transudative effusion. bronchodilators, pulmonary toilet. pulmonary following. Repeat chest x-ray- unchanged - minimal secretions - trach care- Acute renal failure on top of chronic kidney disease HYpernatremia- HYperkalemia - resolved -creatinine stabilizing ff UO and BMP - continue on 06/29 NS- Sr. Director ff. d/w staff- to give free water /PEG- reviewed EMR- not given - Kidney ultrasound unremarkable. - Nephrology ff - creatinine- stable - ff CMP in am Urinary retention - garcia placed 01/21 DM type 2 - A1C 9.6, BGs still high, - Levemir increased to 15 units twice a day on 01/17/2018, cont sliding scale insulin and adjust dose However the patient was vomited tube feeds on hols Hold levemir. KUB ordered non specific findings. CHRONIC RESOLVED ISSUES: Scrotal Edema/ulcerations - seen by Urology: continue wcatheter as needed, scrotal elevation NSTEMI Echo 10/19: LV systolic function is moderately reduced, EF 40-45%. continue Coreg and statin. Anemia secondary to GI bleed- Status post EGD colonoscopy. GI has signed off, patient with healed rectal ulcers and hemorrhoids. Continue Pepcid. Noted Vomiting on/off - TF held and hazmat technician consulted, tube feeding diet changed per hazmat technician recommendations - abdominal exam- benign, soft with good bowel sounds -restart tube feeds- Vital 1.5 goal of 65 - KUB unremarkable - check CMP in am- LFTs GI prophylaxis- on Pepcid DVT prophylaxis-on coumadin- INR therapeutic - pharmacy dosing 01/07 per long discussion with patient's daughter - terminal clerk plan- she says it's difficult for them to take her home- working - SNF- no insurance- patient here visiting from [place] when this unfortunate event happened Discussed with the nurse - Urinary Catheter Management Straight Cath placed during this visit: yes Urethral indwelling: Yes Reason for continuing: Acute urinary retention Insertion date: 01/21/18 Insertion time: 08:00 Indwelling Urethral Catheter Cath placed during this visit: yes, but has since been removed by the nurse Urethral indwelling: Yes Reason for continuing: Severe pressure ulcer/wound Insertion date: 01/21/18 Insertion time: 16:18 Removal date: 01/20/18 Removal time: 15:15 Results - Labs CBC & Chem 7: 01/31/18 07:02 01/31/18 07:02 Laboratory Results - last 24 hr 01/31/18 01/31/18 01/31/18 00:22 06:29 07:02 WBC RBC Hgb Hct MCV MCH MCHC RDW Plt Count MPV Neut % (Auto) Lymph % (Auto) [place] % (Auto) Eos % (Auto) Baso % (Auto) Neut # (Auto) Lymph # (Auto) [place] # (Auto) Eos # (Auto) Baso # (Auto) WBC Differential Differential Comment PT 22.8 H INR 2.3 Sodium Potassium Chloride Carbon Dioxide Anion Gap BUN Creatinine Estimated GFR POC Glucose 267 H 228 H Random Glucose Calcium Total Bilirubin AST ALT Alkaline Phosphatase Total Protein Albumin 01/31/18 01/31/18 01/31/18 07:02 07:02 12:24 WBC 9.0 RBC 2.82 L Hgb 7.9 L Hct 24.6 L MCV 87.1 MCH 28.0 MCHC 32.1 RDW 19.4 H Plt Count 373 MPV 8.0 Neut % (Auto) 50.3 Lymph % (Auto) 38.0 [place] % (Auto) 8.6 H Eos % (Auto) 2.6 Baso % (Auto) 0.5 Neut # (Auto) 4.5 Lymph # (Auto) 3.4 [place] # (Auto) 0.8 Eos # (Auto) 0.2 Baso # (Auto) 0.0 WBC Differential . Differential Comment Auto diff final PT INR Sodium 149 H Potassium 4.5 Chloride 117 H Carbon Dioxide 25.8 Anion Gap 6 BUN 50 H Creatinine 1.17 Estimated GFR 60 L POC Glucose 417 H Random Glucose 194 H Calcium 7.6 L Total Bilirubin 0.2 AST 123 H ALT 87 H Alkaline Phosphatase 185 H Total Protein 6.4 Albumin 1.0 L 01/31/18 16:38 WBC RBC Hgb Hct MCV MCH MCHC RDW Plt Count MPV Neut % (Auto) Lymph % (Auto) [place] % (Auto) Eos % (Auto) Baso % (Auto) Neut # (Auto) Lymph # (Auto) [place] # (Auto) Eos # (Auto) Baso # (Auto) WBC Differential Differential Comment PT INR Sodium Potassium Chloride Carbon Dioxide Anion Gap BUN Creatinine Estimated GFR POC Glucose 386 H Random Glucose Calcium Total Bilirubin AST ALT Alkaline Phosphatase Total Protein Albumin Microbiology 01/03/18 17:00 Fluid - Pleural fluid Fungal Smear - Final No fungal elements seen 01/03/18 17:00 Fluid - Pleural fluid Fungal Culture - Final No growth in 4 weeks 01/03/18 17:00 Fluid - Pleural fluid Acid Fast Bacilli Smear - Final No acid fast bacilli seen 01/03/18 17:00 Fluid - Pleural fluid Mycobacterial Culture - Preliminary No growth in 4 weeks 01/29/18 07:25 Blood - Peripheral Aerobic Blood Culture - Preliminary No growth in 2 days 01/29/18 07:25 Blood - Peripheral Anaerobic Blood Culture - Preliminary No growth in 2 days 01/29/18 07:15 Blood - Peripheral Aerobic Blood Culture - Preliminary No growth in 2 days 01/29/18 07:15 Blood - Peripheral Anaerobic Blood Culture - Preliminary No growth in 2 days 01/26/18 11:35 Blood - Peripheral Aerobic Blood Culture - Final No growth in 5 days 01/26/18 11:35 Blood - Peripheral Anaerobic Blood Culture - Final No growth in 5 days 01/26/18 11:45 Blood - Peripheral Aerobic Blood Culture - Final No growth in 5 days 01/26/18 11:45 Blood - Peripheral Anaerobic Blood Culture - Final No growth in 5 days Assessment and Plan - Plan RESPIRATORY FAILURE cva cad respiratory failure post trach bilateral effusions plan o2 as needed PULM TOILET Right chest tube removed change trach to cuffless
--- NOTE | 2018-01-31 19:33 | P.PNID ---
Subjective Remarks: intermittent fever in low grade range grew Sten malt in sptum clx 2/2 lately Antibiotics: diflucan meropenem levaquine Lines: periferal Lines ok Past Medical History: reviewed Allergies/Adverse Reactions: Allergies No Known Allergies Allergy (Verified 12/25/17 11:22) Objective Vital Signs 01/30/18 20:00 01/30/18 22:14 01/31/18 00:00 Temperature 99.3 F 98.9 F Pulse Rate 100 H 100 H 103 H Respiratory Rate 18 20 18 Blood Pressure 110/56 L 109/61 Pulse Oximetry 98 95 97 01/31/18 04:00 01/31/18 08:00 01/31/18 08:44 Temperature 100.4 F H 100.0 F H Pulse Rate 102 H 96 H 107 H Respiratory Rate 18 20 Blood Pressure 103/55 L 110/61 Pulse Oximetry 96 95 97 01/31/18 12:00 01/31/18 16:00 Temperature 98.8 F 99.7 F H Pulse Rate 114 H 115 H Respiratory Rate 22 18 Blood Pressure 92/54 L 95/53 L Pulse Oximetry 98 97 Intake & Output 01/31/18 01/31/18 02/01/18 06:59 18:59 06:59 Intake Total 1150 / 1150 1221 / 1221 Output Total 850 / 850 600 / 600 Balance 300 / 300 621 / 621 Weight 72.8 kg Intake: IV 300 / 300 Diflucan 400 mg Premix Bag 200 200 / 200 ML @ 100 mls/hr IV.SIG Q24H EDE Rx#:[id number] Merrem Inj 1,000 MG In NS Inj 100 / 100 100 ML @ 200 mls/hr IV.SIG Q12H EDE Rx#:[id number] Tube Feeding 700 / 700 621 / 621 Tube Irrigant 150 / 150 Water Bolus Amount 600 / 600 Output: Urine 850 / 850 100 / 100 Urine Amount (Catheter) 500 / 500 Indwelling Urethral Catheter 500 / 500 Other: Date of Last Bowel Movement 01/30/18 # Bowel Movements 1 # Incontinent Bowel Movements 1 01/03/18 17:00 Fluid - Pleural fluid Fungal Smear - Final No fungal elements seen 01/03/18 17:00 Fluid - Pleural fluid Fungal Culture - Final No growth in 4 weeks 01/03/18 17:00 Fluid - Pleural fluid Acid Fast Bacilli Smear - Final No acid fast bacilli seen 01/03/18 17:00 Fluid - Pleural fluid Mycobacterial Culture - Preliminary No growth in 4 weeks 01/29/18 07:25 Blood - Peripheral Aerobic Blood Culture - Preliminary No growth in 2 days 01/29/18 07:25 Blood - Peripheral Anaerobic Blood Culture - Preliminary No growth in 2 days 01/29/18 07:15 Blood - Peripheral Aerobic Blood Culture - Preliminary No growth in 2 days 01/29/18 07:15 Blood - Peripheral Anaerobic Blood Culture - Preliminary No growth in 2 days 01/26/18 11:35 Blood - Peripheral Aerobic Blood Culture - Final No growth in 5 days 01/26/18 11:35 Blood - Peripheral Anaerobic Blood Culture - Final No growth in 5 days 01/26/18 11:45 Blood - Peripheral Aerobic Blood Culture - Final No growth in 5 days 01/26/18 11:45 Blood - Peripheral Anaerobic Blood Culture - Final No growth in 5 days 01/28/18 23:15 Catheterized Urine Urine Culture - Final No growth in 48 hours 01/26/18 09:16 Sputum - Tracheal Aspirate Gram Stain - Final 01/26/18 09:16 Sputum - Tracheal Aspirate Sputum Culture - Final Stenotrophomonas maltophilia 01/27/18 06:00 Catheterized Urine Urine Culture - Final No growth in 48 hours Lab - Hematology Results 01/31/18 07:02 WBC 9.0 RBC 2.82 L Hgb 7.9 L Hct 24.6 L MCV 87.1 MCH 28.0 MCHC 32.1 RDW 19.4 H Plt Count 373 MPV 8.0 Neut % (Auto) 50.3 Lymph % (Auto) 38.0 [place] % (Auto) 8.6 H Eos % (Auto) 2.6 Baso % (Auto) 0.5 Neut # (Auto) 4.5 Lymph # (Auto) 3.4 [place] # (Auto) 0.8 Eos # (Auto) 0.2 Baso # (Auto) 0.0 WBC Differential . Differential Comment Auto diff final Lab - Chemistry Results 01/29/18 01/30/18 01/30/18 23:30 06:43 11:40 Sodium Potassium Chloride Carbon Dioxide Anion Gap BUN Creatinine Estimated GFR POC Glucose 275 H 295 H 296 H Random Glucose Calcium Total Bilirubin AST ALT Alkaline Phosphatase Total Protein Albumin 01/30/18 01/31/18 01/31/18 17:41 00:22 06:29 Sodium Potassium Chloride Carbon Dioxide Anion Gap BUN Creatinine Estimated GFR POC Glucose 307 H 267 H 228 H Random Glucose Calcium Total Bilirubin AST ALT Alkaline Phosphatase Total Protein Albumin 01/31/18 01/31/18 01/31/18 07:02 12:24 16:38 Sodium 149 H Potassium 4.5 Chloride 117 H Carbon Dioxide 25.8 Anion Gap 6 BUN 50 H Creatinine 1.17 Estimated GFR 60 L POC Glucose 417 H 386 H Random Glucose 194 H Calcium 7.6 L Total Bilirubin 0.2 AST 123 H ALT 87 H Alkaline Phosphatase 185 H Total Protein 6.4 Albumin 1.0 L Imaging: ITS Impressions Head MRI 01/02/18 00:00 CONCLUSION: 1. 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 2. Cerebral atrophy and chronic ischemic small vessel vasculopathy. Chest CT 01/03/18 00:00 CONCLUSION: 1. Large bilateral pleural effusions occupying more than half of the right and left hemithorax. Abdomen/Pelvis CT 01/13/18 00:00 CONCLUSION: 1. Small bilateral pleural effusions and basilar infiltrates with bilateral chest tubes in place. 2. No evidence of ascites or bowel dilatation. Abdomen/Bladder Ultrasound 01/15/18 00:00 CONCLUSION: 1. Negative renal sonogram. Abdomen X-Ray 01/26/18 00:00 CONCLUSION: Nonobstructive bowel gas pattern. Chest X-Ray 01/28/18 06:00 CONCLUSION: No significant interval change. Physical Exam: GENERAL: Patient is 77 yo on Tpiece SKIN: Warm and dry. No rash HEAD: Normocephalic. EYES: No scleral icterus. No injection or drainage. NECK: Supple, trachea midline. + trach in place with large amount of drainage CARDIOVASCULAR: RRR. No murmurs, rubs, gallops RESPIRATORY: Breath sounds equal bilaterally. No accessory muscle use. Scattereed rhonchi R CT in place with serous drainage GASTROINTESTINAL: Abdomen soft, non-tender, nondistended. +PEG tube in place MUSCULOSKELETAL: No cyanosis, less prominent edema. GUl; garcia in place with yellow urine Neuro: lethargic, no eye contact, not follws commands non vernbal Assessment and Plan - Plan Sacral decub with possible underlying infection, osteomyelitis. Prior h/o ESBL E.coli on 10/24/2017. Possible HCAP GNR UTI ? ESBL given h/o ESBL. 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 Encephalopathy: strokes in hospital, optic neuritis on presentation. New issue: fungemia, C. tropicalis - persistent fungemia Persistent fever Gram negative UTI: PSAE and ESBL + Kleb Recs: cont Fluconazol con levaquin dc meropenem will repeat CXR in am dw Scott Mojica, Dolores
[2018-02-01] MEDS: Insulin Detemir Inj 1,000 UNIT/10 ML Vial SQ SCH ×3 (00:38→22:07)
[2018-02-01] MEDS: Insulin NovoLIN Regular Correctional Sugar Inj SQ SCH ×5 (00:38→17:02)
[2018-02-01 02:53] LABS: INR 1.9 Ratio; Prothrombin Time 19.7 sec (9.8-11.6)
--- NOTE | 2018-02-01 07:20 | XR ---
EXAM DATE: 02/01/2018 7:03 AM EDT AGE/SEX: 77 years / Male INDICATIONS: Short of breath, evaluate COPD CLINICAL DATA: This is the patient's subsequent encounter. Patient reports that signs and symptoms h ave been present for 3 months and indicates a pain score of Nonresponsive. MEDICAL/SURGICAL HISTORY: Chronic obstructive pulmonary disease. Cardiovascular disease. Diab etes. Coronary artery stent. tracheostomy COMPARISON: [facility] [place] 1V SINGLE AP, 01/28/2018. . FINDINGS: The right-sided small chest tube has been removed. No pneumothorax is noted. Small bilateral pleural effusions are stable. Pulmonary infiltrates are minimally improved. The heart is stable. Tracheostomy tube is unchanged with its tip well above the levy. CONCLUSION: 1. Minimal improvement of the bilateral pulmonary infiltrates. 2. Small stable bilateral pleural effusions. 3. No evidence of pneumothorax. Electronically signed by: Ion Man MD 02/01/2018 7:19 AM EDT
[2018-02-01] MEDS: Polyethylene Glycol 3350 17 GM Packet PO SCH (08:37)
[2018-02-01] MEDS: Famotidine 20 MG Tablet PO SCH ×2 (08:37→22:06)
[2018-02-01] MEDS: Hydrocortisone Acetate 25 MG Supp RECTAL SCH ×2 (08:37→22:07)
[2018-02-01] MEDS: Collagenase Oint 30 GM Tube TOPICAL SCH (08:38)
--- NOTE | 2018-02-01 14:24 | P.DIET ---
Nutritional Evaluation Type of nutrition evaluation: follow-up Nutrition consult regarding: Tube Feeding Nutrition screening: Pressure Injury, [facility] [place] (01/26 reevaluate tube feedings as patient is vomiting) Objective - Diagnosis Optic Neuritis - Objective % IBW: 114 ([id number]#) Body Weight Used for Calculations: Actual (79.6kg) Energy Needs - Lower Range (kCal/kg): 30 Energy Needs - Upper Range (kCal/kg): 35 Lower Limit kCal/kg (kCals): 2,388 Upper Limit kCal/kg (kCals): 2,786 Lower Limit Protein Factor (Grams per Kg): 1.3 Upper Limit Protein Factor (Grams per Kg): 1.6 Lower Protein Needs (Protein): 103 Upper Protein Needs (Protein): 127 Fluid Factor (ml/kg): 30 Estimated Fluid Needs (ml): 2,388 Dietitian Reviewed in Medical Record: Curent medications, Intake & Output, Labs , Tube feeding, Wound/DTI Diet Order: TF Only Wound Care Note: WOCN dated 01/27: sacrum pressure injury-unstageable Feeding - Current Tube Feeding Tube Feeding Product: Vital 1.5 Tube Feeding Method: Pump Tube Feeding Rate: 65 Tube Feeding Route: gastrostomy Current kCals Provided by Tube Feedin,340 Current Protein Provided by Tube Feeding (gPRO): 105 Current Free H2O Provided (m/l): 1,192 Assessment Assessment: Pt remains on TFs as described above. He has been tolerating Vital 1.5. Noted elevated BG levels w/ recent BG being 390, may possibly be r/t the formula change. Will continue to monitor. WOCN reviewed, pt w/ unstageable pressure injury to sacrum. Recommend adding Sharif BID through G tube to aid in wound healing. Continue Vital 1.5 @ 65mls/hr. Dietitian following. Recommendations: 1. Continue Vital 1.5 @ 65mls/hr. 2. Recommend Sharif BID via PEG tube for wound healing. Dietitian to Monitor: Lab values, Glucose level, Intake & Output, Tube feeding tolerance, Weight change, Wound/skin status, Medical course
--- NOTE | 2018-02-01 17:32 | P.PN ---
Physical Exam Vital signs: Vital Signs 01/31/18 20:00 01/31/18 20:56 01/31/18 21:06 Temperature 101.0 F H Pulse Rate 114 H 110 H Respiratory Rate 18 16 Blood Pressure 96/56 L Pulse Oximetry 98 02/01/18 00:00 02/01/18 04:00 02/01/18 04:44 Temperature 97.6 F 99.2 F Pulse Rate 111 H 104 H Respiratory Rate 22 20 Blood Pressure 106/61 110/60 Pulse Oximetry 98 100 98 02/01/18 08:00 02/01/18 08:20 02/01/18 09:29 Temperature 99.5 F Pulse Rate 103 H 103 H 103 H Respiratory Rate 20 16 Blood Pressure 123/58 L Pulse Oximetry 98 95 02/01/18 12:00 02/01/18 13:08 02/01/18 16:00 Temperature 99.2 F 97.8 F Pulse Rate 102 H 103 H 94 H Respiratory Rate 21 20 Blood Pressure 108/58 L 114/54 L Pulse Oximetry 98 99 Intake & Output 01/31/18 02/01/18 02/01/18 18:59 06:59 18:59 Intake Total 1521 / 1521 1200 / 1200 698 / 698 Output Total 600 / 600 1400 / 1400 Balance 921 / 921 -200 / -200 698 / 698 Weight 110 kg Intake: IV 200 / 200 Diflucan 400 mg Premix Bag 200 200 / 200 ML @ 100 mls/hr IV.SIG Q24H [facility] Rx#:[id number] Oral 0 / 0 Tube Feeding 721 / 721 700 / 700 498 / 498 Tube Irrigant 300 / 300 Water Bolus Amount 800 / 800 200 / 200 Output: Urine 100 / 100 600 / 600 Urine Amount (Catheter) 500 / 500 800 / 800 Indwelling Urethral Catheter 500 / 500 800 / 800 Other: Date of Last Bowel Movement 01/31/18 01/30/18 02/01/18 # Bowel Movements 1 Narrative: Subjective: In bed, appears in nad. No more vomiting BP is better controlled. Monitor VS No fevers overnight. Family wants to talk with telecommunications linesworker Dr. Bernal for capping trach . I discussed with Dr. Hayes for An track Physical Exam GENERAL: No acute distress, awake and alert SKIN: back with sacral decubitus- deep edges no necrotic tissue, debrided at bedside 01/20- by Dr. Upton NECK: Trach in place. CARDIOVASCULAR: Regular rate and rhythm without murmurs, gallops, or rubs. RESPIRATORY: Breath sounds equal bilaterally. No accessory muscle use. GASTROINTESTINAL: Abdomen soft, non-tender, nondistended. +PEG tube in place : Garcia in place- placed 01/21 MUSCULOSKELETAL: No cyanosis, or edema. NEURO: neuro status at baseline- unchanged Assessment and Plan This is a 77-year-old male who initially presented with vision changes with concern for optic neuritis versus temporal arteritis. Hospital course complicated by NSTEMI, E. coli urinary tract infection, rectal bleeding with acute anemia. He became lethargic, admitted to the intensive care unit and found to have CVA. CTA head and neck revealed atherosclerotic disease. After giving TPA, the patient had tonic-clonic seizure and became obtunded with acute hypoxic and hypercarbic respiratory failure, intubated. Patient was then transferred to the hospitalist service when patient was more stable. 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 Repeat MRI unchanged. Patient also had seizures, EEG showed diffuse encephalopathy. -Continue statin, Ritalin. After discussion patient's daughter, she would like to try to get the patient off Keppra and hopefully will improve his mental status. She is aware that there is risk for seizures. Follow while off Keppra. Neuropsychology following. Was on steroids for optic neuritis. Encephalopathy persists, no change in mental status, family continues to be aggressive in goals -restart coumadin- pharmacy ff . f INR ID Recurrent fever - spiked again Recurrent UTI-prior history of ESBL E. coli- new culture - 01/17- Pseudomonas Sacral decub with possible underlying infection, osteomyelitis. Fungemia- repeat cultures negative x 48 hours Possible Aspiration PNA - Sacral decub has eschar with possible underlying osteomyelitis. Patient family refused surgical sacral debridement after seen by plastic surgery. Wound care and Dr. Upton following. 12/31 Wound cx: ESBL E.coli -Garcia catheter changed 01/09/2018, Urine culture on 01/09 grew Pseudomonas pansensitive, -Status post ciprofloxacin and imipenem. Echocardiogram on 01/12, no vegetation. Ophthalmology has seen the patient, no fungal keratitis or fungal eye infection. - Repeat blood cultures still growing Xenia tropicalis, switched back to fluconazole per infectious disease. Still having fever, rechecked blood culture , repeat urinalysis still shows large leukocyte esterase and pyuria, leukocytosis increasing, CTT still in position with increased right-sided pleural effusion. - ID ff - Started on meropenem, and vancomycin. Continue Diflucan, once documented blood sterility, will continue fluconazole for at least 2 weeks whether oral or IV. Follow-up repeat blood culture. - FF up final urine cultures- 01/17- growing Pseudomonas - final s still pending - Blood cultures from 01/16 negative so far - restarted TF- tolerating well - wound care daily- per wound care team recommendations- S/P extensive bedside debridement 01/[address] Salazar - 01/26/18 check CXR - no significant change, KUB- no acute findings Still with spikes of fevers, ID ff added levaquin Acute on chronic respiratory failure status post tracheostomy- currently on 28% T piece Bilateral Pleural effusion, with healthcare associated pneumonia - Pigtail catheters in place- left chest tube was removed 01/19 - right pigtail catheter still in place pleural fluid cultures negative consistent with transudative effusion. bronchodilators, pulmonary toilet. pulmonary following. Repeat chest x-ray- unchanged - minimal secretions - trach care- Acute renal failure on top of chronic kidney disease HYpernatremia- HYperkalemia - resolved -creatinine stabilizing ff UO and BMP - continue on 06/29 NS- Manager Financial ff. d/w staff- to give free water /PEG- reviewed EMR- not given - Kidney ultrasound unremarkable. - Nephrology ff - creatinine- stable - ff CMP in am Urinary retention - garcia placed 01/21 DM type 2 - A1C 9.6, BGs still high, - Levemir increased to 15 units twice a day on 01/17/2018, cont sliding scale insulin and adjust dose However the patient was vomited tube feeds on hols Hold levemir. KUB ordered non specific findings. CHRONIC RESOLVED ISSUES: Scrotal Edema/ulcerations - seen by Urology: continue wcatheter as needed, scrotal elevation NSTEMI Echo 10/19: LV systolic function is moderately reduced, EF 40-45%. continue Coreg and statin. Anemia secondary to GI bleed- Status post EGD colonoscopy. GI has signed off, patient with healed rectal ulcers and hemorrhoids. Continue Pepcid. Noted Vomiting on/off - TF held and manager dairy consulted, tube feeding diet changed per manager dairy recommendations - abdominal exam- benign, soft with good bowel sounds -restart tube feeds- Vital 1.5 goal of 65 - KUB unremarkable - check CMP in am- LFTs GI prophylaxis- on Pepcid DVT prophylaxis-on coumadin- INR therapeutic - pharmacy dosing 01/07 per long discussion with patient's daughter - rn long term care plan- she says it's difficult for them to take her home- working - SNF- no insurance- patient here visiting from [place] when this unfortunate event happened Discussed with the nurse, family at bedside, Dr Yamini byers 02/01/18 BP better controlled. Monitor VS Blood sugar is also better controlled after increased detemir inslin to 20 U BID Family wants to talk with telecommunications linesworker Dr. Bernal for capping trach - Urinary Catheter Management Straight Cath placed during this visit: yes Urethral indwelling: Yes Reason for continuing: Acute urinary retention Insertion date: 01/21/18 Insertion time: 08:00 Indwelling Urethral Catheter Cath placed during this visit: yes, but has since been removed by the nurse Urethral indwelling: Yes Reason for continuing: Chronic Urinary Retention Insertion date: 01/21/18 Insertion time: 16:18 Removal date: 01/20/18 Removal time: 15:15 Results - Labs CBC & Chem 7: 01/31/18 07:02 02/01/18 02:29 Laboratory Results - last 24 hr 02/01/18 02/01/18 02/01/18 00:19 00:21 02:29 PT 19.7 H INR 1.9 POC Glucose 452 H* 467 H* Random Glucose 02/01/18 02/01/18 02/01/18 02:29 04:04 06:41 PT INR POC Glucose 427 H 415 H Random Glucose 389 H D 02/01/18 02/01/18 11:13 16:19 PT INR POC Glucose 390 H 331 H Random Glucose Microbiology 01/04/18 12:45 Fluid - Pleural fluid Acid Fast Bacilli Smear - Final No acid fast bacilli seen 01/04/18 12:45 Fluid - Pleural fluid Mycobacterial Culture - Preliminary No growth in 4 weeks 01/29/18 07:25 Blood - Peripheral Aerobic Blood Culture - Preliminary No growth in 3 days 01/29/18 07:25 Blood - Peripheral Anaerobic Blood Culture - Preliminary No growth in 3 days 01/29/18 07:15 Blood - Peripheral Aerobic Blood Culture - Preliminary No growth in 3 days 01/29/18 07:15 Blood - Peripheral Anaerobic Blood Culture - Preliminary No growth in 3 days 01/03/18 17:00 Fluid - Pleural fluid Fungal Smear - Final No fungal elements seen 01/03/18 17:00 Fluid - Pleural fluid Fungal Culture - Final No growth in 4 weeks 01/03/18 17:00 Fluid - Pleural fluid Acid Fast Bacilli Smear - Final No acid fast bacilli seen 01/03/18 17:00 Fluid - Pleural fluid Mycobacterial Culture - Preliminary No growth in 4 weeks - Imaging Impressions Chest X-Ray 02/01/18 18:51 CONCLUSION: 1. Minimal improvement of the bilateral pulmonary infiltrates. 2. Small stable bilateral pleural effusions. 3. No evidence of pneumothorax. Assessment and Plan - Assessment (1) Encephalopathy Code(s): G93.40 - Encephalopathy, unspecified Status: Acute (2) CVA (cerebral vascular accident) Code(s): I63.9 - Cerebral infarction, unspecified Status: Acute (3) Wound of sacral region Code(s): S31.000A - Unspecified open wound of lower back and pelvis without penetration into retroperitoneum, initial encounter Status: Acute (4) NSTEMI (non-ST elevated myocardial infarction) Code(s): I21.4 - Non-ST elevation (NSTEMI) myocardial infarction Status: Resolved (5) Anemia Code(s): D64.9 - Anemia, unspecified Status: Acute (6) Respiratory failure with hypoxia and hypercapnia Code(s): J96.91 - Respiratory failure, unspecified with hypoxia; J96.92 - Respiratory failure, unspecified with hypercapnia Status: Resolved (7) Optic neuritis Code(s): H46.9 - Unspecified optic neuritis Status: Resolved (5) Anemia Qualifiers: Anemia type: unspecified type Qualified Code(s): D64.9 - Anemia, unspecified
--- NOTE | 2018-02-01 23:11 | P.PN ---
Subjective Interval history: OPENS EYES NO SOB CHEST TUBES REMOVED TRACH CHANGED Physical Exam Vital signs: Vital Signs 02/01/18 00:00 02/01/18 04:00 02/01/18 04:44 Temperature 97.6 F 99.2 F Pulse Rate 111 H 104 H Respiratory Rate 22 20 Blood Pressure 106/61 110/60 Pulse Oximetry 98 100 98 02/01/18 08:00 02/01/18 08:20 02/01/18 09:29 Temperature 99.5 F Pulse Rate 103 H 103 H 103 H Respiratory Rate 20 16 Blood Pressure 123/58 L Pulse Oximetry 98 95 02/01/18 12:00 02/01/18 13:08 02/01/18 16:00 Temperature 99.2 F 97.8 F Pulse Rate 102 H 103 H 94 H Respiratory Rate 21 20 Blood Pressure 108/58 L 114/54 L Pulse Oximetry 98 99 02/01/18 17:42 02/01/18 20:28 02/01/18 20:29 Temperature 98.6 F Pulse Rate 93 H 90 90 Respiratory Rate 18 19 Blood Pressure 110/60 Pulse Oximetry 100 99 Intake & Output 02/01/18 02/01/18 02/02/18 06:59 18:59 06:59 Intake Total 1350 / 1350 698 / 698 Output Total 1400 / 1400 450 / 450 Balance -50 / -50 248 / 248 Weight 110 kg Intake: IV 350 / 350 Diflucan 400 mg Premix Bag 200 200 / 200 ML @ 100 mls/hr IV.SIG Q24H [facility] Rx#:[id number] Levaquin 750 mg Premix Inj 150 150 / 150 ML @ 100 mls/hr IV.SIG Q24H [facility] Rx#:[id number] Oral 0 / 0 Tube Feeding 700 / 700 498 / 498 Tube Irrigant 300 / 300 Water Bolus Amount 200 / 200 Output: Urine 600 / 600 450 / 450 Urine Amount (Catheter) 800 / 800 Indwelling Urethral Catheter 800 / 800 Other: Date of Last Bowel Movement 01/30/18 02/01/18 # Bowel Movements 1 1 Narrative: Subjective: In bed, appears in nad. No more vomiting BP is better controlled. Monitor VS No fevers overnight. Family wants to talk with sales training representative Dr. Bernal for capping trach . I discussed with Dr. Hayes for An track Physical Exam GENERAL: No acute distress, awake and alert SKIN: back with sacral decubitus- deep edges no necrotic tissue, debrided at bedside 01/20- by Dr. Upton NECK: Trach in place. CARDIOVASCULAR: Regular rate and rhythm without murmurs, gallops, or rubs. RESPIRATORY: Breath sounds equal bilaterally. No accessory muscle use. GASTROINTESTINAL: Abdomen soft, non-tender, nondistended. +PEG tube in place : Garcia in place- placed 01/21 MUSCULOSKELETAL: No cyanosis, or edema. NEURO: neuro status at baseline- unchanged Assessment and Plan This is a 77-year-old male who initially presented with vision changes with concern for optic neuritis versus temporal arteritis. Hospital course complicated by NSTEMI, E. coli urinary tract infection, rectal bleeding with acute anemia. He became lethargic, admitted to the intensive care unit and found to have CVA. CTA head and neck revealed atherosclerotic disease. After giving TPA, the patient had tonic-clonic seizure and became obtunded with acute hypoxic and hypercarbic respiratory failure, intubated. Patient was then transferred to the hospitalist service when patient was more stable. 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 Repeat MRI unchanged. Patient also had seizures, EEG showed diffuse encephalopathy. -Continue statin, Ritalin. After discussion patient's daughter, she would like to try to get the patient off Keppra and hopefully will improve his mental status. She is aware that there is risk for seizures. Follow while off Keppra. Neuropsychology following. Was on steroids for optic neuritis. Encephalopathy persists, no change in mental status, family continues to be aggressive in goals -restart coumadin- pharmacy ff . f INR ID Recurrent fever - spiked again Recurrent UTI-prior history of ESBL E. coli- new culture - 01/17- Pseudomonas Sacral decub with possible underlying infection, osteomyelitis. Fungemia- repeat cultures negative x 48 hours Possible Aspiration PNA - Sacral decub has eschar with possible underlying osteomyelitis. Patient family refused surgical sacral debridement after seen by plastic surgery. Wound care and Dr. Upton following. 12/31 Wound cx: ESBL E.coli -Garcia catheter changed 01/09/2018, Urine culture on 01/09 grew Pseudomonas pansensitive, -Status post ciprofloxacin and imipenem. Echocardiogram on 01/12, no vegetation. Ophthalmology has seen the patient, no fungal keratitis or fungal eye infection. - Repeat blood cultures still growing Xenia tropicalis, switched back to fluconazole per infectious disease. Still having fever, rechecked blood culture , repeat urinalysis still shows large leukocyte esterase and pyuria, leukocytosis increasing, CTT still in position with increased right-sided pleural effusion. - ID ff - Started on meropenem, and vancomycin. Continue Diflucan, once documented blood sterility, will continue fluconazole for at least 2 weeks whether oral or IV. Follow-up repeat blood culture. - FF up final urine cultures- 01/17- growing Pseudomonas - final s still pending - Blood cultures from 01/16 negative so far - restarted TF- tolerating well - wound care daily- per wound care team recommendations- S/P extensive bedside debridement 01/[address] Salazar - 01/26/18 check CXR - no significant change, KUB- no acute findings Still with spikes of fevers, ID ff added levaquin Acute on chronic respiratory failure status post tracheostomy- currently on 28% T piece Bilateral Pleural effusion, with healthcare associated pneumonia - Pigtail catheters in place- left chest tube was removed 01/19 - right pigtail catheter still in place pleural fluid cultures negative consistent with transudative effusion. bronchodilators, pulmonary toilet. pulmonary following. Repeat chest x-ray- unchanged - minimal secretions - trach care- Acute renal failure on top of chronic kidney disease HYpernatremia- HYperkalemia - resolved -creatinine stabilizing ff UO and BMP - continue on 06/29 NS- Airline Station Agent ff. d/w staff- to give free water /PEG- reviewed EMR- not given - Kidney ultrasound unremarkable. - Nephrology ff - creatinine- stable - ff CMP in am Urinary retention - garcia placed 01/21 DM type 2 - A1C 9.6, BGs still high, - Levemir increased to 15 units twice a day on 01/17/2018, cont sliding scale insulin and adjust dose However the patient was vomited tube feeds on hols Hold levemir. KUB ordered non specific findings. CHRONIC RESOLVED ISSUES: Scrotal Edema/ulcerations - seen by Urology: continue wcatheter as needed, scrotal elevation NSTEMI Echo 10/19: LV systolic function is moderately reduced, EF 40-45%. continue Coreg and statin. Anemia secondary to GI bleed- Status post EGD colonoscopy. GI has signed off, patient with healed rectal ulcers and hemorrhoids. Continue Pepcid. Noted Vomiting on/off - TF held and javascript engineer consulted, tube feeding diet changed per javascript engineer recommendations - abdominal exam- benign, soft with good bowel sounds -restart tube feeds- Vital 1.5 goal of 65 - KUB unremarkable - check CMP in am- LFTs GI prophylaxis- on Pepcid DVT prophylaxis-on coumadin- INR therapeutic - pharmacy dosing 01/07 per long discussion with patient's daughter - halfway plan- she says it's difficult for them to take her home- working - SNF- no insurance- patient here visiting from [place] when this unfortunate event happened Discussed with the nurse, family at bedside, Dr Yamini byers 02/01/18 BP better controlled. Monitor VS Blood sugar is also better controlled after increased detemir inslin to 20 U BID Family wants to talk with sales training representative Dr. Bernal for capping trach - Urinary Catheter Management Straight Cath placed during this visit: yes Urethral indwelling: Yes Reason for continuing: Acute urinary retention Insertion date: 01/21/18 Insertion time: 08:00 Indwelling Urethral Catheter Cath placed during this visit: yes, but has since been removed by the nurse Urethral indwelling: Yes Reason for continuing: Chronic Urinary Retention Insertion date: 01/21/18 Insertion time: 16:18 Removal date: 01/20/18 Removal time: 15:15 Results - Labs CBC & Chem 7: 01/31/18 07:02 02/01/18 02:29 Laboratory Results - last 24 hr 02/01/18 02/01/18 02/01/18 00:19 00:21 02:29 PT 19.7 H INR 1.9 POC Glucose 452 H* 467 H* Random Glucose 02/01/18 02/01/18 02/01/18 02:29 04:04 06:41 PT INR POC Glucose 427 H 415 H Random Glucose 389 H D 02/01/18 02/01/18 02/01/18 11:13 16:19 20:25 PT INR POC Glucose 390 H 331 H 328 H Random Glucose Microbiology 01/04/18 12:45 Fluid - Pleural fluid Acid Fast Bacilli Smear - Final No acid fast bacilli seen 01/04/18 12:45 Fluid - Pleural fluid Mycobacterial Culture - Preliminary No growth in 4 weeks 01/29/18 07:25 Blood - Peripheral Aerobic Blood Culture - Preliminary No growth in 3 days 01/29/18 07:25 Blood - Peripheral Anaerobic Blood Culture - Preliminary No growth in 3 days 01/29/18 07:15 Blood - Peripheral Aerobic Blood Culture - Preliminary No growth in 3 days 01/29/18 07:15 Blood - Peripheral Anaerobic Blood Culture - Preliminary No growth in 3 days - Imaging Impressions Chest X-Ray 02/01/18 18:51 CONCLUSION: 1. Minimal improvement of the bilateral pulmonary infiltrates. 2. Small stable bilateral pleural effusions. 3. No evidence of pneumothorax. Assessment and Plan - Plan RESPIRATORY FAILURE cva cad respiratory failure post trach bilateral effusions plan o2 as needed PULM TOILET
[2018-02-02] MEDS: Insulin NovoLIN Regular Correctional Sugar Inj SQ SCH ×5 (00:12→23:20)
[2018-02-02 07:04] LABS: Prothrombin Time 20.4 sec (9.8-11.6)
[2018-02-02] MEDS: Insulin Detemir Inj 1,000 UNIT/10 ML Vial SQ SCH ×2 (08:42→23:22)
[2018-02-02] MEDS: Famotidine 20 MG Tablet PO SCH ×2 (08:42→23:22)
[2018-02-02] MEDS: Polyethylene Glycol 3350 17 GM Packet PO SCH (08:43)
[2018-02-02] MEDS: Hydrocortisone Acetate 25 MG Supp RECTAL SCH ×2 (08:44→23:21)
[2018-02-02] MEDS: Collagenase Oint 30 GM Tube TOPICAL SCH (08:50)
--- NOTE | 2018-02-02 09:37 | P.PN ---
Physical Exam Vital signs: Vital Signs 02/01/18 12:00 02/01/18 13:08 02/01/18 16:00 Temperature 99.2 F 97.8 F Pulse Rate 102 H 103 H 94 H Respiratory Rate 21 20 Blood Pressure 108/58 L 114/54 L Pulse Oximetry 98 99 02/01/18 17:42 02/01/18 20:00 02/01/18 20:28 Temperature 98.6 F Pulse Rate 93 H 90 Respiratory Rate 18 Blood Pressure 110/60 Pulse Oximetry 98 100 02/01/18 20:29 02/02/18 00:00 02/02/18 04:00 Temperature 97.4 F L 97.6 F Pulse Rate 90 81 89 Respiratory Rate 19 18 18 Blood Pressure 103/58 L 102/55 L Pulse Oximetry 99 99 92 L 02/02/18 08:00 02/02/18 08:21 Temperature 99.1 F Pulse Rate 91 H 80 Respiratory Rate 16 18 Blood Pressure 109/55 L Pulse Oximetry 99 95 Intake & Output 02/01/18 02/02/18 02/02/18 18:59 06:59 18:59 Intake Total 698 / 698 350 / 350 Output Total 450 / 450 1000 / 1000 Balance 248 / 248 -1000 / -1000 350 / 350 Weight 110.2 kg Intake: IV 350 / 350 Diflucan 400 mg Premix Bag 200 200 / 200 ML @ 100 mls/hr IV.SIG Q24H EDE Rx#:[id number] Levaquin 750 mg Premix Inj 150 150 / 150 ML @ 100 mls/hr IV.SIG Q24H EDE Rx#:[id number] Tube Feeding 498 / 498 Water Bolus Amount 200 / 200 Output: Urine 450 / 450 1000 / 1000 Other: Date of Last Bowel Movement 02/01/18 02/01/18 # Bowel Movements 1 Narrative: Subjective: In bed, appears in nad. No more vomiting BP is better controlled. Monitor VS No fevers overnight. Physical Exam GENERAL: No acute distress, awake and alert SKIN: back with sacral decubitus- deep edges no necrotic tissue, debrided at bedside 01/20- by Dr. Upton NECK: Trach in place. CARDIOVASCULAR: Regular rate and rhythm without murmurs, gallops, or rubs. RESPIRATORY: Breath sounds equal bilaterally. No accessory muscle use. GASTROINTESTINAL: Abdomen soft, non-tender, nondistended. +PEG tube in place : Garcia in place- placed 01/21 MUSCULOSKELETAL: No cyanosis, or edema. NEURO: neuro status at baseline- unchanged Assessment and Plan This is a 77-year-old male who initially presented with vision changes with concern for optic neuritis versus temporal arteritis. Hospital course complicated by NSTEMI, E. coli urinary tract infection, rectal bleeding with acute anemia. He became lethargic, admitted to the intensive care unit and found to have CVA. CTA head and neck revealed atherosclerotic disease. After giving TPA, the patient had tonic-clonic seizure and became obtunded with acute hypoxic and hypercarbic respiratory failure, intubated. Patient was then transferred to the hospitalist service when patient was more stable. 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 Repeat MRI unchanged. Patient also had seizures, EEG showed diffuse encephalopathy. -Continue statin, Ritalin. After discussion patient's daughter, she would like to try to get the patient off Keppra and hopefully will improve his mental status. She is aware that there is risk for seizures. Follow while off Keppra. Neuropsychology following. Was on steroids for optic neuritis. Encephalopathy persists, no change in mental status, family continues to be aggressive in goals -restart coumadin- pharmacy ff . f INR ID Recurrent fever - spiked again Recurrent UTI-prior history of ESBL E. coli- new culture - 01/17- Pseudomonas Sacral decub with possible underlying infection, osteomyelitis. Fungemia- repeat cultures negative x 48 hours Possible Aspiration PNA - Sacral decub has eschar with possible underlying osteomyelitis. Patient family refused surgical sacral debridement after seen by plastic surgery. Wound care and Dr. Upton following. 12/31 Wound cx: ESBL E.coli -Garcia catheter changed 01/09/2018, Urine culture on 01/09 grew Pseudomonas pansensitive, -Status post ciprofloxacin and imipenem. Echocardiogram on 01/12, no vegetation. Ophthalmology has seen the patient, no fungal keratitis or fungal eye infection. - Repeat blood cultures still growing Xenia tropicalis, switched back to fluconazole per infectious disease. Still having fever, rechecked blood culture , repeat urinalysis still shows large leukocyte esterase and pyuria, leukocytosis increasing, CTT still in position with increased right-sided pleural effusion. - ID ff - Started on meropenem, and vancomycin. Continue Diflucan, once documented blood sterility, will continue fluconazole for at least 2 weeks whether oral or IV. Follow-up repeat blood culture. - FF up final urine cultures- 01/17- growing Pseudomonas - final s still pending - Blood cultures from 01/16 negative so far - restarted TF- tolerating well - wound care daily- per wound care team recommendations- S/P extensive bedside debridement 01/[address] Salazar - 01/26/18 check CXR - no significant change, KUB- no acute findings Still with spikes of fevers, ID ff added levaquin Acute on chronic respiratory failure status post tracheostomy- currently on 28% T piece Bilateral Pleural effusion, with healthcare associated pneumonia - Pigtail catheters in place- left chest tube was removed 01/19 - right pigtail catheter still in place pleural fluid cultures negative consistent with transudative effusion. bronchodilators, pulmonary toilet. pulmonary following. Repeat chest x-ray- unchanged - minimal secretions - trach care- Acute renal failure on top of chronic kidney disease HYpernatremia- HYperkalemia - resolved -creatinine stabilizing ff UO and BMP - continue on 06/29 NS- [employer] ff. d/w staff- to give free water /PEG- reviewed EMR- not given - Kidney ultrasound unremarkable. - Nephrology ff - creatinine- stable - ff CMP in am Urinary retention - garcia placed 01/21 DM type 2 - A1C 9.6, BGs still high, - Levemir increased to 15 units twice a day on 01/17/2018, cont sliding scale insulin and adjust dose However the patient was vomited tube feeds on hols Hold levemir. KUB ordered non specific findings. CHRONIC RESOLVED ISSUES: Scrotal Edema/ulcerations - seen by Urology: continue wcatheter as needed, scrotal elevation NSTEMI Echo 10/19: LV systolic function is moderately reduced, EF 40-45%. continue Coreg and statin. Anemia secondary to GI bleed- Status post EGD colonoscopy. GI has signed off, patient with healed rectal ulcers and hemorrhoids. Continue Pepcid. Noted Vomiting on/off - TF held and braiding machine tender consulted, tube feeding diet changed per braiding machine tender recommendations - abdominal exam- benign, soft with good bowel sounds -restart tube feeds- Vital 1.5 goal of 65 - KUB unremarkable - check CMP in am- LFTs GI prophylaxis- on Pepcid DVT prophylaxis-on coumadin- INR therapeutic - pharmacy dosing 01/07 per long discussion with patient's daughter - manager long term care plan- she says it's difficult for them to take her home- working - SNF- no insurance- patient here visiting from [place] when this unfortunate event happened Discussed with the nurse, family at bedside, Dr Yamini byers 02/02/18 BP better controlled. Monitor VS cap trach as tolerated per [place] ff - Urinary Catheter Management Straight Cath placed during this visit: yes Urethral indwelling: Yes Reason for continuing: Acute urinary retention Insertion date: 01/21/18 Insertion time: 08:00 Indwelling Urethral Catheter Cath placed during this visit: yes, but has since been removed by the nurse Urethral indwelling: Yes Reason for continuing: Chronic Urinary Retention Insertion date: 01/21/18 Insertion time: 16:18 Removal date: 01/20/18 Removal time: 15:15 Results - Labs CBC & Chem 7: 01/31/18 07:02 02/01/18 02:29 Laboratory Results - last 24 hr 02/01/18 02/01/18 02/01/18 11:13 16:19 20:25 PT INR POC Glucose 390 H 331 H 328 H 02/02/18 02/02/18 05:17 06:33 PT 20.4 H INR 2.0 POC Glucose 340 H Microbiology 01/04/18 12:45 Fluid - Pleural fluid Acid Fast Bacilli Smear - Final No acid fast bacilli seen 01/04/18 12:45 Fluid - Pleural fluid Mycobacterial Culture - Preliminary No growth in 4 weeks 01/29/18 07:25 Blood - Peripheral Aerobic Blood Culture - Preliminary No growth in 3 days 01/29/18 07:25 Blood - Peripheral Anaerobic Blood Culture - Preliminary No growth in 3 days 01/29/18 07:15 Blood - Peripheral Aerobic Blood Culture - Preliminary No growth in 3 days 01/29/18 07:15 Blood - Peripheral Anaerobic Blood Culture - Preliminary No growth in 3 days Assessment and Plan - Assessment (1) Encephalopathy Code(s): G93.40 - Encephalopathy, unspecified Status: Acute (2) CVA (cerebral vascular accident) Code(s): I63.9 - Cerebral infarction, unspecified Status: Acute (3) Wound of sacral region Code(s): S31.000A - Unspecified open wound of lower back and pelvis without penetration into retroperitoneum, initial encounter Status: Acute (4) NSTEMI (non-ST elevated myocardial infarction) Code(s): I21.4 - Non-ST elevation (NSTEMI) myocardial infarction Status: Resolved (5) Anemia Code(s): D64.9 - Anemia, unspecified Status: Acute (6) Respiratory failure with hypoxia and hypercapnia Code(s): J96.91 - Respiratory failure, unspecified with hypoxia; J96.92 - Respiratory failure, unspecified with hypercapnia Status: Resolved (7) Optic neuritis Code(s): H46.9 - Unspecified optic neuritis Status: Resolved (5) Anemia Qualifiers: Anemia type: unspecified type Qualified Code(s): D64.9 - Anemia, unspecified
--- NOTE | 2018-02-02 16:44 | P.PN ---
Subjective Interval history: EYES OPEN SEEMS TO TRACK VOICE Physical Exam Vital signs: Vital Signs 02/01/18 17:42 02/01/18 20:00 02/01/18 20:28 Temperature 98.6 F Pulse Rate 93 H 90 Respiratory Rate 18 Blood Pressure 110/60 Pulse Oximetry 98 100 02/01/18 20:29 02/02/18 00:00 02/02/18 04:00 Temperature 97.4 F L 97.6 F Pulse Rate 90 81 89 Respiratory Rate 19 18 18 Blood Pressure 103/58 L 102/55 L Pulse Oximetry 99 99 92 L 02/02/18 08:00 02/02/18 08:21 02/02/18 12:00 Temperature 99.1 F 97.4 F L Pulse Rate 91 H 80 88 Respiratory Rate 16 18 Blood Pressure 109/55 L 110/88 Pulse Oximetry 99 95 97 Intake & Output 02/01/18 02/02/18 02/02/18 18:59 06:59 18:59 Intake Total 698 / 698 350 / 350 Output Total 450 / 450 1000 / 1000 Balance 248 / 248 -1000 / -1000 350 / 350 Weight 110.2 kg Intake: IV 350 / 350 Diflucan 400 mg Premix Bag 200 200 / 200 ML @ 100 mls/hr IV.SIG Q24H EDE Rx#:[id number] Levaquin 750 mg Premix Inj 150 150 / 150 ML @ 100 mls/hr IV.SIG Q24H EDE Rx#:[id number] Tube Feeding 498 / 498 Water Bolus Amount 200 / 200 Output: Urine 450 / 450 1000 / 1000 Other: Date of Last Bowel Movement 02/01/18 02/01/18 02/01/18 # Bowel Movements 1 Narrative: Subjective: In bed, appears in nad. No more vomiting BP is better controlled. Monitor VS No fevers overnight. Family wants to talk with brain picker Dr. Bernal for capping trach . I discussed with Dr. Hayes for An track Physical Exam GENERAL: No acute distress, awake and alert SKIN: back with sacral decubitus- deep edges no necrotic tissue, debrided at bedside 01/20- by Dr. Upton NECK: Trach in place. CARDIOVASCULAR: Regular rate and rhythm without murmurs, gallops, or rubs. RESPIRATORY: Breath sounds equal bilaterally. No accessory muscle use. GASTROINTESTINAL: Abdomen soft, non-tender, nondistended. +PEG tube in place : Garcia in place- placed 01/21 MUSCULOSKELETAL: No cyanosis, or edema. NEURO: neuro status at baseline- unchanged Assessment and Plan This is a 77-year-old male who initially presented with vision changes with concern for optic neuritis versus temporal arteritis. Hospital course complicated by NSTEMI, E. coli urinary tract infection, rectal bleeding with acute anemia. He became lethargic, admitted to the intensive care unit and found to have CVA. CTA head and neck revealed atherosclerotic disease. After giving TPA, the patient had tonic-clonic seizure and became obtunded with acute hypoxic and hypercarbic respiratory failure, intubated. Patient was then transferred to the hospitalist service when patient was more stable. 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 Repeat MRI unchanged. Patient also had seizures, EEG showed diffuse encephalopathy. -Continue statin, Ritalin. After discussion patient's daughter, she would like to try to get the patient off Keppra and hopefully will improve his mental status. She is aware that there is risk for seizures. Follow while off Keppra. Neuropsychology following. Was on steroids for optic neuritis. Encephalopathy persists, no change in mental status, family continues to be aggressive in goals -restart coumadin- pharmacy ff . f INR ID Recurrent fever - spiked again Recurrent UTI-prior history of ESBL E. coli- new culture - 01/17- Pseudomonas Sacral decub with possible underlying infection, osteomyelitis. Fungemia- repeat cultures negative x 48 hours Possible Aspiration PNA - Sacral decub has eschar with possible underlying osteomyelitis. Patient family refused surgical sacral debridement after seen by plastic surgery. Wound care and Dr. Upton following. 12/31 Wound cx: ESBL E.coli -Garcia catheter changed 01/09/2018, Urine culture on 01/09 grew Pseudomonas pansensitive, -Status post ciprofloxacin and imipenem. Echocardiogram on 01/12, no vegetation. Ophthalmology has seen the patient, no fungal keratitis or fungal eye infection. - Repeat blood cultures still growing Xenia tropicalis, switched back to fluconazole per infectious disease. Still having fever, rechecked blood culture , repeat urinalysis still shows large leukocyte esterase and pyuria, leukocytosis increasing, CTT still in position with increased right-sided pleural effusion. - ID ff - Started on meropenem, and vancomycin. Continue Diflucan, once documented blood sterility, will continue fluconazole for at least 2 weeks whether oral or IV. Follow-up repeat blood culture. - FF up final urine cultures- 01/17- growing Pseudomonas - final s still pending - Blood cultures from 01/16 negative so far - restarted TF- tolerating well - wound care daily- per wound care team recommendations- S/P extensive bedside debridement 01/[address] Salazar - 01/26/18 check CXR - no significant change, KUB- no acute findings Still with spikes of fevers, ID ff added levaquin Acute on chronic respiratory failure status post tracheostomy- currently on 28% T piece Bilateral Pleural effusion, with healthcare associated pneumonia - Pigtail catheters in place- left chest tube was removed 01/19 - right pigtail catheter still in place pleural fluid cultures negative consistent with transudative effusion. bronchodilators, pulmonary toilet. pulmonary following. Repeat chest x-ray- unchanged - minimal secretions - trach care- Acute renal failure on top of chronic kidney disease HYpernatremia- HYperkalemia - resolved -creatinine stabilizing ff UO and BMP - continue on 06/29 NS- [employer] ff. d/w staff- to give free water /PEG- reviewed EMR- not given - Kidney ultrasound unremarkable. - Nephrology ff - creatinine- stable - ff CMP in am Urinary retention - garcia placed 01/21 DM type 2 - A1C 9.6, BGs still high, - Levemir increased to 15 units twice a day on 01/17/2018, cont sliding scale insulin and adjust dose However the patient was vomited tube feeds on hols Hold levemir. KUB ordered non specific findings. CHRONIC RESOLVED ISSUES: Scrotal Edema/ulcerations - seen by Urology: continue wcatheter as needed, scrotal elevation NSTEMI Echo 10/19: LV systolic function is moderately reduced, EF 40-45%. continue Coreg and statin. Anemia secondary to GI bleed- Status post EGD colonoscopy. GI has signed off, patient with healed rectal ulcers and hemorrhoids. Continue Pepcid. Noted Vomiting on/off - TF held and senior linux administrator consulted, tube feeding diet changed per senior linux administrator recommendations - abdominal exam- benign, soft with good bowel sounds -restart tube feeds- Vital 1.5 goal of 65 - KUB unremarkable - check CMP in am- LFTs GI prophylaxis- on Pepcid DVT prophylaxis-on coumadin- INR therapeutic - pharmacy dosing 01/07 per long discussion with patient's daughter - [facility] plan- she says it's difficult for them to take her home- working - SNF- no insurance- patient here visiting from [place] when this unfortunate event happened Discussed with the nurse, family at bedside, Dr Yamini byers 02/01/18 BP better controlled. Monitor VS Blood sugar is also better controlled after increased detemir inslin to 20 U BID Family wants to talk with brain picker Dr. Bernal for capping trach - Urinary Catheter Management Straight Cath placed during this visit: yes Urethral indwelling: Yes Reason for continuing: Acute urinary retention Insertion date: 01/21/18 Insertion time: 08:00 Indwelling Urethral Catheter Cath placed during this visit: yes, but has since been removed by the nurse Urethral indwelling: Yes Reason for continuing: Chronic Urinary Retention Insertion date: 01/21/18 Insertion time: 16:18 Removal date: 01/20/18 Removal time: 15:15 Results - Labs CBC & Chem 7: 01/31/18 07:02 02/01/18 02:29 Laboratory Results - last 24 hr 02/01/18 02/02/18 02/02/18 20:25 05:17 06:33 PT 20.4 H INR 2.0 POC Glucose 328 H 340 H 02/02/18 10:58 PT INR POC Glucose 311 H Microbiology 01/29/18 07:25 Blood - Peripheral Aerobic Blood Culture - Preliminary No growth in 4 days 01/29/18 07:25 Blood - Peripheral Anaerobic Blood Culture - Preliminary No growth in 4 days 01/29/18 07:15 Blood - Peripheral Aerobic Blood Culture - Preliminary No growth in 4 days 01/29/18 07:15 Blood - Peripheral Anaerobic Blood Culture - Preliminary No growth in 4 days 01/04/18 12:45 Fluid - Pleural fluid Acid Fast Bacilli Smear - Final No acid fast bacilli seen 01/04/18 12:45 Fluid - Pleural fluid Mycobacterial Culture - Preliminary No growth in 4 weeks Assessment and Plan - Plan RESPIRATORY FAILURE cva cad respiratory failure post trach bilateral effusions plan o2 as needed PULM TOILET CAP TRACH TOLERATED
[2018-02-03 04:53] LABS: Baso % (Auto) 0.2 % (0.0-2.0); Eos # (Auto) 0.2 th/mm3 (0.0-0.4); Eos % (Auto) 2.4 % (0.0-4.0); Hematocrit 24.6 % (39.0-51.0); Hemoglobin 7.8 gm/dL (13.0-17.0); Lymph # (Auto) 2.6 th/mm3 (1.0-4.8); Lymph % (Auto) 30.4 % (9.0-44.0); Mean Corpuscular HGB Conc 31.5 % (32.0-36.0); Mean Corpuscular Hemoglobin 27.4 pg (27.0-34.0); Mean Corpuscular Volume 86.8 fL (80.0-100.0); Mean Platelet Volume 8.3 fL (7.0-11.0); Mono # (Auto) 0.7 th/mm3 (0.0-0.9); Mono % (Auto) 8.8 % (0.0-8.0); Neut # (Auto) 4.9 th/mm3 (1.8-7.7); Neut % (Auto) 58.2 % (16.0-70.0); Platelet Count 285 th/mm3 (150-450); Red Blood Count 2.83 mil/mm3 (4.50-5.90); White Blood Count 8.4 th/mm3 (4.0-11.0)
[2018-02-03 05:01] LABS: INR 2.4 Ratio; Prothrombin Time 24.2 sec (9.8-11.6)
[2018-02-03 05:32] LABS: Alanine Aminotransferase 110 U/L (12-78); Albumin 1.1 g/dL (3.4-5.0); Alkaline Phosphatase 182 U/L (45-117); Anion Gap 5 meq/L (5-15); Aspartate Aminotransferase 111 U/L (15-37); Blood Urea Nitrogen 73 mg/dL (7-18); Calcium 8.1 mg/dL (8.5-10.1); Chloride 114 meq/L (98-107); Glomerular Filtration Rate 49 mL/min (>89); Glucose,Random 278 mg/dL (74-106); Potassium 4.2 meq/L (3.5-5.1); Sodium 147 meq/L (136-145); Total Protein 6.3 g/dL (6.4-8.2)
[2018-02-03] MEDS: Insulin NovoLIN Regular Correctional Sugar Inj SQ SCH ×4 (06:25→23:24)
[2018-02-03] MEDS: Insulin Detemir Inj 1,000 UNIT/10 ML Vial SQ SCH ×2 (10:03→22:58)
[2018-02-03] MEDS: Polyethylene Glycol 3350 17 GM Packet PO SCH (10:05)
[2018-02-03] MEDS: Famotidine 20 MG Tablet PO SCH ×2 (10:05→23:08)
[2018-02-03] MEDS: Hydrocortisone Acetate 25 MG Supp RECTAL SCH ×2 (10:06→23:05)
[2018-02-03] MEDS: Collagenase Oint 30 GM Tube TOPICAL SCH (10:07)
[2018-02-03] MEDS ORDERED: levoFLOXacin 750 MG Tablet PO SCH (13:00)
--- NOTE | 2018-02-03 14:14 | P.PN ---
Physical Exam Vital signs: Vital Signs 02/02/18 16:00 02/02/18 20:00 02/02/18 20:33 Temperature 97.3 F L 97.6 F Pulse Rate 88 88 Respiratory Rate 24 18 Blood Pressure 129/75 123/61 Pulse Oximetry 100 98 99 02/02/18 21:15 02/03/18 00:00 02/03/18 02:43 Temperature 97.4 F L Pulse Rate 83 74 Respiratory Rate 18 Blood Pressure 107/57 L Pulse Oximetry 99 100 02/03/18 03:30 02/03/18 04:00 02/03/18 07:51 Temperature 98.2 F Pulse Rate 85 75 Respiratory Rate 18 Blood Pressure 120/57 L Pulse Oximetry 99 99 02/03/18 08:00 02/03/18 09:57 Temperature 97.4 F L Pulse Rate 87 88 Respiratory Rate 20 22 Blood Pressure 141/81 H Pulse Oximetry 100 99 Intake & Output 02/02/18 02/03/18 02/03/18 18:59 06:59 18:59 Intake Total 1088 / 1088 Output Total 1300 / 1300 1600 / 1600 Balance -212 / -212 -1600 / -1600 Weight 110.5 kg Intake: IV 350 / 350 Diflucan 400 mg Premix Bag 200 200 / 200 ML @ 100 mls/hr IV.SIG Q24H EDE Rx#:[id number] Levaquin 750 mg Premix Inj 150 150 / 150 ML @ 100 mls/hr IV.SIG Q24H EDE Rx#:[id number] Tube Feeding 738 / 738 Output: Urine 900 / 900 1600 / 1600 Urine Amount (Catheter) 400 / 400 Indwelling Urethral Catheter 400 / 400 Other: Date of Last Bowel Movement 02/01/18 02/01/18 02/01/18 # Bowel Movements 1 Narrative: Subjective: In bed, appears in nad. More awake. No more vomiting BP is not controlled increase levemir. Monitor VS No fevers overnight. Physical Exam GENERAL: No acute distress, awake and alert SKIN: back with sacral decubitus- deep edges no necrotic tissue, debrided at bedside 01/20- by Dr. Upton NECK: Trach in place. CARDIOVASCULAR: Regular rate and rhythm without murmurs, gallops, or rubs. RESPIRATORY: Breath sounds equal bilaterally. No accessory muscle use. GASTROINTESTINAL: Abdomen soft, non-tender, nondistended. +PEG tube in place : Garcia in place- placed 01/21 MUSCULOSKELETAL: No cyanosis, or edema. NEURO: neuro status at baseline- unchanged Assessment and Plan This is a 77-year-old male who initially presented with vision changes with concern for optic neuritis versus temporal arteritis. Hospital course complicated by NSTEMI, E. coli urinary tract infection, rectal bleeding with acute anemia. He became lethargic, admitted to the intensive care unit and found to have CVA. CTA head and neck revealed atherosclerotic disease. After giving TPA, the patient had tonic-clonic seizure and became obtunded with acute hypoxic and hypercarbic respiratory failure, intubated. Patient was then transferred to the hospitalist service when patient was more stable. 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 Repeat MRI unchanged. Patient also had seizures, EEG showed diffuse encephalopathy. -Continue statin, Ritalin. After discussion patient's daughter, she would like to try to get the patient off Keppra and hopefully will improve his mental status. She is aware that there is risk for seizures. Follow while off Keppra. Neuropsychology following. Was on steroids for optic neuritis. Encephalopathy persists, no change in mental status, family continues to be aggressive in goals -restart coumadin- pharmacy ff . f INR ID Recurrent fever - spiked again Recurrent UTI-prior history of ESBL E. coli- new culture - 01/17- Pseudomonas Sacral decub with possible underlying infection, osteomyelitis. Fungemia- repeat cultures negative x 48 hours Possible Aspiration PNA - Sacral decub has eschar with possible underlying osteomyelitis. Patient family refused surgical sacral debridement after seen by plastic surgery. Wound care and Dr. Upton following. 12/31 Wound cx: ESBL E.coli -Garcia catheter changed 01/09/2018, Urine culture on 01/09 grew Pseudomonas pansensitive, -Status post ciprofloxacin and imipenem. Echocardiogram on 01/12, no vegetation. Ophthalmology has seen the patient, no fungal keratitis or fungal eye infection. - Repeat blood cultures still growing Xenia tropicalis, switched back to fluconazole per infectious disease. Still having fever, rechecked blood culture , repeat urinalysis still shows large leukocyte esterase and pyuria, leukocytosis increasing, CTT still in position with increased right-sided pleural effusion. - ID ff - Started on meropenem, and vancomycin. Continue Diflucan, once documented blood sterility, will continue fluconazole for at least 2 weeks whether oral or IV. Follow-up repeat blood culture. - FF up final urine cultures- 01/17- growing Pseudomonas - final s still pending - Blood cultures from 01/16 negative so far - restarted TF- tolerating well - wound care daily- per wound care team recommendations- S/P extensive bedside debridement 01/[address] Salazar - 01/26/18 check CXR - no significant change, KUB- no acute findings Still with spikes of fevers, ID ff added levaquin Acute on chronic respiratory failure status post tracheostomy- currently on 28% T piece Bilateral Pleural effusion, with healthcare associated pneumonia - Pigtail catheters in place- left chest tube was removed 01/19 - right pigtail catheter still in place pleural fluid cultures negative consistent with transudative effusion. bronchodilators, pulmonary toilet. pulmonary following. Repeat chest x-ray- unchanged - minimal secretions - trach care- Acute renal failure on top of chronic kidney disease HYpernatremia- HYperkalemia - resolved -creatinine stabilizing ff UO and BMP - continue on 06/29 NS- Manager Of Sales ff. d/w staff- to give free water /PEG- reviewed EMR- not given - Kidney ultrasound unremarkable. - Nephrology ff - creatinine- stable - ff CMP in am Urinary retention - garcia placed 01/21 DM type 2 , uncontrolled - A1C 9.6, BGs still high - Levemir increased to 25 units twice a day on 02/03/2018, cont sliding scale insulin and adjust dose Patient was vomited tube feedings changes. KUB ordered non specific findings. With new formula patient has elevated BS. Increased Levemir to 25 U bid. CHRONIC RESOLVED ISSUES: Scrotal Edema/ulcerations - seen by Urology: continue wcatheter as needed, scrotal elevation NSTEMI Echo 10/19: LV systolic function is moderately reduced, EF 40-45%. continue Coreg and statin. Anemia secondary to GI bleed- Status post EGD colonoscopy. GI has signed off, patient with healed rectal ulcers and hemorrhoids. Continue Pepcid. 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 Monitor VS. Increase levemir to 25 bid monitor and adjust insulin cap trach as tolerated per [place] ff - Urinary Catheter Management Straight Cath placed during this visit: yes Urethral indwelling: Yes Reason for continuing: Acute urinary retention Insertion date: 01/21/18 Insertion time: 08:00 Indwelling Urethral Catheter Cath placed during this visit: yes, but has since been removed by the nurse Urethral indwelling: Yes Reason for continuing: Chronic Urinary Retention Insertion date: 01/21/18 Insertion time: 16:18 Removal date: 01/20/18 Removal time: 15:15 Results - Labs CBC & Chem 7: 02/03/18 04:34 02/03/18 04:34 Laboratory Results - last 24 hr 02/02/18 02/02/18 02/03/18 16:55 23:14 04:34 WBC RBC Hgb Hct MCV MCH MCHC RDW Plt Count MPV Neut % (Auto) Lymph % (Auto) [place] % (Auto) Eos % (Auto) Baso % (Auto) Neut # (Auto) Lymph # (Auto) [place] # (Auto) Eos # (Auto) Baso # (Auto) WBC Differential Differential Comment PT 24.2 H INR 2.4 Sodium Potassium Chloride Carbon Dioxide Anion Gap BUN Creatinine Estimated GFR POC Glucose 346 H 304 H Random Glucose Calcium Magnesium Total Bilirubin AST ALT Alkaline Phosphatase Total Protein Albumin 02/03/18 02/03/18 02/03/18 04:34 04:34 04:34 WBC 8.4 RBC 2.83 L Hgb 7.8 L Hct 24.6 L MCV 86.8 MCH 27.4 MCHC 31.5 L RDW 19.0 H Plt Count 285 MPV 8.3 Neut % (Auto) 58.2 Lymph % (Auto) 30.4 [place] % (Auto) 8.8 H Eos % (Auto) 2.4 Baso % (Auto) 0.2 Neut # (Auto) 4.9 Lymph # (Auto) 2.6 [place] # (Auto) 0.7 Eos # (Auto) 0.2 Baso # (Auto) 0.0 WBC Differential . Differential Comment Auto diff final PT INR Sodium 147 H Potassium 4.2 Chloride 114 H Carbon Dioxide 28.0 Anion Gap 5 BUN 73 H Creatinine 1.41 H Estimated GFR 49 L POC Glucose Random Glucose 278 H Calcium 8.1 L Magnesium 2.3 Total Bilirubin 0.2 AST 111 H ALT 110 H Alkaline Phosphatase 182 H Total Protein 6.3 L Albumin 1.1 L 02/03/18 02/03/18 02/03/18 06:17 07:22 11:46 WBC RBC Hgb Hct MCV MCH MCHC RDW Plt Count MPV Neut % (Auto) Lymph % (Auto) [place] % (Auto) Eos % (Auto) Baso % (Auto) Neut # (Auto) Lymph # (Auto) [place] # (Auto) Eos # (Auto) Baso # (Auto) WBC Differential Differential Comment PT INR Sodium Potassium Chloride Carbon Dioxide Anion Gap BUN Creatinine Estimated GFR POC Glucose 346 H 338 H 335 H Random Glucose Calcium Magnesium Total Bilirubin AST ALT Alkaline Phosphatase Total Protein Albumin Microbiology 01/29/18 07:25 Blood - Peripheral Aerobic Blood Culture - Final No growth in 5 days 01/29/18 07:25 Blood - Peripheral Anaerobic Blood Culture - Final No growth in 5 days 01/29/18 07:15 Blood - Peripheral Aerobic Blood Culture - Final No growth in 5 days 01/29/18 07:15 Blood - Peripheral Anaerobic Blood Culture - Final No growth in 5 days Assessment and Plan - Assessment (1) Encephalopathy Code(s): G93.40 - Encephalopathy, unspecified Status: Acute (2) CVA (cerebral vascular accident) Code(s): I63.9 - Cerebral infarction, unspecified Status: Acute (3) Wound of sacral region Code(s): S31.000A - Unspecified open wound of lower back and pelvis without penetration into retroperitoneum, initial encounter Status: Acute (4) NSTEMI (non-ST elevated myocardial infarction) Code(s): I21.4 - Non-ST elevation (NSTEMI) myocardial infarction Status: Resolved (5) Anemia Code(s): D64.9 - Anemia, unspecified Status: Acute (6) Respiratory failure with hypoxia and hypercapnia Code(s): J96.91 - Respiratory failure, unspecified with hypoxia; J96.92 - Respiratory failure, unspecified with hypercapnia Status: Resolved (7) Optic neuritis Code(s): H46.9 - Unspecified optic neuritis Status: Resolved (5) Anemia Qualifiers: Anemia type: unspecified type Qualified Code(s): D64.9 - Anemia, unspecified
--- NOTE | 2018-02-03 15:03 | P.PN ---
Subjective Interval history: opens eyes no sob Physical Exam Vital signs: Vital Signs 02/02/18 16:00 02/02/18 20:00 02/02/18 20:33 Temperature 97.3 F L 97.6 F Pulse Rate 88 88 Respiratory Rate 24 18 Blood Pressure 129/75 123/61 Pulse Oximetry 100 98 99 02/02/18 21:15 02/03/18 00:00 02/03/18 02:43 Temperature 97.4 F L Pulse Rate 83 74 Respiratory Rate 18 Blood Pressure 107/57 L Pulse Oximetry 99 100 02/03/18 03:30 02/03/18 04:00 02/03/18 07:51 Temperature 98.2 F Pulse Rate 85 75 Respiratory Rate 18 Blood Pressure 120/57 L Pulse Oximetry 99 99 02/03/18 08:00 02/03/18 09:57 02/03/18 12:00 Temperature 97.4 F L 97.3 F L Pulse Rate 87 88 95 H Respiratory Rate 20 22 20 Blood Pressure 141/81 H 122/60 Pulse Oximetry 100 99 99 Intake & Output 02/02/18 02/03/18 02/03/18 18:59 06:59 18:59 Intake Total 1088 / 1088 Output Total 1300 / 1300 1600 / 1600 Balance -212 / -212 -1600 / -1600 Weight 110.5 kg Intake: IV 350 / 350 Diflucan 400 mg Premix Bag 200 200 / 200 ML @ 100 mls/hr IV.SIG Q24H EDE Rx#:[id number] Levaquin 750 mg Premix Inj 150 150 / 150 ML @ 100 mls/hr IV.SIG Q24H EDE Rx#:[id number] Tube Feeding 738 / 738 Output: Urine 900 / 900 1600 / 1600 Urine Amount (Catheter) 400 / 400 Indwelling Urethral Catheter 400 / 400 Other: Date of Last Bowel Movement 02/01/18 02/01/18 02/01/18 # Bowel Movements 1 Narrative: Subjective: In bed, appears in nad. More awake. No more vomiting BP is not controlled increase levemir. Monitor VS No fevers overnight. Physical Exam GENERAL: No acute distress, awake and alert SKIN: back with sacral decubitus- deep edges no necrotic tissue, debrided at bedside 01/20- by Dr. Upton NECK: Trach in place. CARDIOVASCULAR: Regular rate and rhythm without murmurs, gallops, or rubs. RESPIRATORY: Breath sounds equal bilaterally. No accessory muscle use. GASTROINTESTINAL: Abdomen soft, non-tender, nondistended. +PEG tube in place : Garcia in place- placed 01/21 MUSCULOSKELETAL: No cyanosis, or edema. NEURO: neuro status at baseline- unchanged Assessment and Plan This is a 77-year-old male who initially presented with vision changes with concern for optic neuritis versus temporal arteritis. Hospital course complicated by NSTEMI, E. coli urinary tract infection, rectal bleeding with acute anemia. He became lethargic, admitted to the intensive care unit and found to have CVA. CTA head and neck revealed atherosclerotic disease. After giving TPA, the patient had tonic-clonic seizure and became obtunded with acute hypoxic and hypercarbic respiratory failure, intubated. Patient was then transferred to the hospitalist service when patient was more stable. 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 Repeat MRI unchanged. Patient also had seizures, EEG showed diffuse encephalopathy. -Continue statin, Ritalin. After discussion patient's daughter, she would like to try to get the patient off Keppra and hopefully will improve his mental status. She is aware that there is risk for seizures. Follow while off Keppra. Neuropsychology following. Was on steroids for optic neuritis. Encephalopathy persists, no change in mental status, family continues to be aggressive in goals -restart coumadin- pharmacy ff . f INR ID Recurrent fever - spiked again Recurrent UTI-prior history of ESBL E. coli- new culture - 01/17- Pseudomonas Sacral decub with possible underlying infection, osteomyelitis. Fungemia- repeat cultures negative x 48 hours Possible Aspiration PNA - Sacral decub has eschar with possible underlying osteomyelitis. Patient family refused surgical sacral debridement after seen by plastic surgery. Wound care and Dr. Upton following. 12/31 Wound cx: ESBL E.coli -Garcia catheter changed 01/09/2018, Urine culture on 01/09 grew Pseudomonas pansensitive, -Status post ciprofloxacin and imipenem. Echocardiogram on 01/12, no vegetation. Ophthalmology has seen the patient, no fungal keratitis or fungal eye infection. - Repeat blood cultures still growing Xenia tropicalis, switched back to fluconazole per infectious disease. Still having fever, rechecked blood culture , repeat urinalysis still shows large leukocyte esterase and pyuria, leukocytosis increasing, CTT still in position with increased right-sided pleural effusion. - ID ff - Started on meropenem, and vancomycin. Continue Diflucan, once documented blood sterility, will continue fluconazole for at least 2 weeks whether oral or IV. Follow-up repeat blood culture. - FF up final urine cultures- 01/17- growing Pseudomonas - final s still pending - Blood cultures from 01/16 negative so far - restarted TF- tolerating well - wound care daily- per wound care team recommendations- S/P extensive bedside debridement 01/[address] Salazar - 01/26/18 check CXR - no significant change, KUB- no acute findings Still with spikes of fevers, ID ff added levaquin Acute on chronic respiratory failure status post tracheostomy- currently on 28% T piece Bilateral Pleural effusion, with healthcare associated pneumonia - Pigtail catheters in place- left chest tube was removed 01/19 - right pigtail catheter still in place pleural fluid cultures negative consistent with transudative effusion. bronchodilators, pulmonary toilet. pulmonary following. Repeat chest x-ray- unchanged - minimal secretions - trach care- Acute renal failure on top of chronic kidney disease HYpernatremia- HYperkalemia - resolved -creatinine stabilizing ff UO and BMP - continue on 06/29 NS- Hot Room Attendant ff. d/w staff- to give free water /PEG- reviewed EMR- not given - Kidney ultrasound unremarkable. - Nephrology ff - creatinine- stable - ff CMP in am Urinary retention - garcia placed 01/21 DM type 2 , uncontrolled - A1C 9.6, BGs still high - Levemir increased to 25 units twice a day on 02/03/2018, cont sliding scale insulin and adjust dose Patient was vomited tube feedings changes. KUB ordered non specific findings. With new formula patient has elevated BS. Increased Levemir to 25 U bid. CHRONIC RESOLVED ISSUES: Scrotal Edema/ulcerations - seen by Urology: continue wcatheter as needed, scrotal elevation NSTEMI Echo 10/19: LV systolic function is moderately reduced, EF 40-45%. continue Coreg and statin. Anemia secondary to GI bleed- Status post EGD colonoscopy. GI has signed off, patient with healed rectal ulcers and hemorrhoids. Continue Pepcid. Noted Vomiting on/off - TF held and store team member consulted, tube feeding diet changed per store team member recommendations - abdominal exam- benign, soft with good bowel sounds -restart tube feeds- Vital 1.5 goal of 65 - KUB unremarkable - check CMP in am- LFTs GI prophylaxis- on Pepcid DVT prophylaxis-on coumadin- INR therapeutic - pharmacy dosing 01/07 per long discussion with patient's daughter - manager terminal plan- she says it's difficult for them to take her home- working - SNF- no insurance- patient here visiting from [place] when this unfortunate event happened Discussed with the nurse, family at bedside, Dr Yamini byers 02/03/18 BP uncontrolled. Monitor VS. Increase levemir to 25 bid monitor and adjust insulin cap trach as tolerated per [place] ff - Urinary Catheter Management Straight Cath placed during this visit: yes Urethral indwelling: Yes Reason for continuing: Acute urinary retention Insertion date: 01/21/18 Insertion time: 08:00 Indwelling Urethral Catheter Cath placed during this visit: yes, but has since been removed by the nurse Urethral indwelling: Yes Reason for continuing: Chronic Urinary Retention Insertion date: 01/21/18 Insertion time: 16:18 Removal date: 01/20/18 Removal time: 15:15 Results - Labs CBC & Chem 7: 02/03/18 04:34 02/03/18 04:34 Laboratory Results - last 24 hr 02/02/18 02/02/18 02/03/18 16:55 23:14 04:34 WBC RBC Hgb Hct MCV MCH MCHC RDW Plt Count MPV Neut % (Auto) Lymph % (Auto) [place] % (Auto) Eos % (Auto) Baso % (Auto) Neut # (Auto) Lymph # (Auto) [place] # (Auto) Eos # (Auto) Baso # (Auto) WBC Differential Differential Comment PT 24.2 H INR 2.4 Sodium Potassium Chloride Carbon Dioxide Anion Gap BUN Creatinine Estimated GFR POC Glucose 346 H 304 H Random Glucose Calcium Magnesium Total Bilirubin AST ALT Alkaline Phosphatase Total Protein Albumin 02/03/18 02/03/18 02/03/18 04:34 04:34 04:34 WBC 8.4 RBC 2.83 L Hgb 7.8 L Hct 24.6 L MCV 86.8 MCH 27.4 MCHC 31.5 L RDW 19.0 H Plt Count 285 MPV 8.3 Neut % (Auto) 58.2 Lymph % (Auto) 30.4 [place] % (Auto) 8.8 H Eos % (Auto) 2.4 Baso % (Auto) 0.2 Neut # (Auto) 4.9 Lymph # (Auto) 2.6 [place] # (Auto) 0.7 Eos # (Auto) 0.2 Baso # (Auto) 0.0 WBC Differential . Differential Comment Auto diff final PT INR Sodium 147 H Potassium 4.2 Chloride 114 H Carbon Dioxide 28.0 Anion Gap 5 BUN 73 H Creatinine 1.41 H Estimated GFR 49 L POC Glucose Random Glucose 278 H Calcium 8.1 L Magnesium 2.3 Total Bilirubin 0.2 AST 111 H ALT 110 H Alkaline Phosphatase 182 H Total Protein 6.3 L Albumin 1.1 L 02/03/18 02/03/18 02/03/18 06:17 07:22 11:46 WBC RBC Hgb Hct MCV MCH MCHC RDW Plt Count MPV Neut % (Auto) Lymph % (Auto) [place] % (Auto) Eos % (Auto) Baso % (Auto) Neut # (Auto) Lymph # (Auto) [place] # (Auto) Eos # (Auto) Baso # (Auto) WBC Differential Differential Comment PT INR Sodium Potassium Chloride Carbon Dioxide Anion Gap BUN Creatinine Estimated GFR POC Glucose 346 H 338 H 335 H Random Glucose Calcium Magnesium Total Bilirubin AST ALT Alkaline Phosphatase Total Protein Albumin Microbiology 01/29/18 07:25 Blood - Peripheral Aerobic Blood Culture - Final No growth in 5 days 01/29/18 07:25 Blood - Peripheral Anaerobic Blood Culture - Final No growth in 5 days 01/29/18 07:15 Blood - Peripheral Aerobic Blood Culture - Final No growth in 5 days 01/29/18 07:15 Blood - Peripheral Anaerobic Blood Culture - Final No growth in 5 days Assessment and Plan - Plan RESPIRATORY FAILURE cva cad respiratory failure post trach bilateral effusions plan o2 as needed PULM TOILET CAP TRACH TOLERATED
[2018-02-04] MEDS: Insulin NovoLIN Regular Correctional Sugar Inj SQ SCH ×3 (06:28→18:32)
[2018-02-04 08:21] LABS: INR 2.7 Ratio; Prothrombin Time 26.8 sec (9.8-11.6)
--- NOTE | 2018-02-04 08:55 | P.PN ---
Subjective Interval history: NO DISTRESS OPENS EYES TRACH IN PLACE Physical Exam Vital signs: Vital Signs 02/03/18 09:57 02/03/18 12:00 02/03/18 14:00 Temperature 97.3 F L Pulse Rate 88 95 H 94 H Respiratory Rate 22 20 Blood Pressure 122/60 Pulse Oximetry 99 99 02/03/18 16:00 02/03/18 19:00 02/03/18 20:00 Temperature 97.2 F L 97.3 F L Pulse Rate 87 90 Respiratory Rate 20 20 Blood Pressure 125/67 119/58 L Pulse Oximetry 100 99 98 02/03/18 20:33 02/04/18 00:00 02/04/18 04:00 Temperature 97.7 F 97.4 F L Pulse Rate 89 92 H 92 H Respiratory Rate 19 20 20 Blood Pressure 97/55 L 100/57 L Pulse Oximetry 98 98 97 Intake & Output 02/03/18 02/04/18 02/04/18 18:59 06:59 18:59 Intake Total 789 / 789 200 / 200 Output Total 2400 / 2400 900 / 900 Balance -1611 / -1611 -700 / -700 Weight 110.5 kg 76.3 kg Intake: IV 200 / 200 Diflucan 400 mg Premix Bag 200 200 / 200 ML @ 100 mls/hr IV.SIG Q24H EDE Rx#:[id number] Tube Feeding 789 / 789 Output: Urine 2400 / 2400 900 / 900 Other: Date of Last Bowel Movement 02/03/18 02/03/18 02/03/18 # Incontinent Bowel Movements 3 Narrative: Subjective: In bed, appears in nad. More awake. No more vomiting BP is not controlled increase levemir. Monitor VS No fevers overnight. Physical Exam GENERAL: No acute distress, awake and alert SKIN: back with sacral decubitus- deep edges no necrotic tissue, debrided at bedside 01/20- by Dr. Upton NECK: Trach in place. CARDIOVASCULAR: Regular rate and rhythm without murmurs, gallops, or rubs. RESPIRATORY: Breath sounds equal bilaterally. No accessory muscle use. GASTROINTESTINAL: Abdomen soft, non-tender, nondistended. +PEG tube in place : Garcia in place- placed 01/21 MUSCULOSKELETAL: No cyanosis, or edema. NEURO: neuro status at baseline- unchanged Assessment and Plan This is a 77-year-old male who initially presented with vision changes with concern for optic neuritis versus temporal arteritis. Hospital course complicated by NSTEMI, E. coli urinary tract infection, rectal bleeding with acute anemia. He became lethargic, admitted to the intensive care unit and found to have CVA. CTA head and neck revealed atherosclerotic disease. After giving TPA, the patient had tonic-clonic seizure and became obtunded with acute hypoxic and hypercarbic respiratory failure, intubated. Patient was then transferred to the hospitalist service when patient was more stable. 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 Repeat MRI unchanged. Patient also had seizures, EEG showed diffuse encephalopathy. -Continue statin, Ritalin. After discussion patient's daughter, she would like to try to get the patient off Keppra and hopefully will improve his mental status. She is aware that there is risk for seizures. Follow while off Keppra. Neuropsychology following. Was on steroids for optic neuritis. Encephalopathy persists, no change in mental status, family continues to be aggressive in goals -restart coumadin- pharmacy ff . f INR ID Recurrent fever - spiked again Recurrent UTI-prior history of ESBL E. coli- new culture - 01/17- Pseudomonas Sacral decub with possible underlying infection, osteomyelitis. Fungemia- repeat cultures negative x 48 hours Possible Aspiration PNA - Sacral decub has eschar with possible underlying osteomyelitis. Patient family refused surgical sacral debridement after seen by plastic surgery. Wound care and Dr. Upton following. 12/31 Wound cx: ESBL E.coli -Garcia catheter changed 01/09/2018, Urine culture on 01/09 grew Pseudomonas pansensitive, -Status post ciprofloxacin and imipenem. Echocardiogram on 01/12, no vegetation. Ophthalmology has seen the patient, no fungal keratitis or fungal eye infection. - Repeat blood cultures still growing Xenia tropicalis, switched back to fluconazole per infectious disease. Still having fever, rechecked blood culture , repeat urinalysis still shows large leukocyte esterase and pyuria, leukocytosis increasing, CTT still in position with increased right-sided pleural effusion. - ID ff - Started on meropenem, and vancomycin. Continue Diflucan, once documented blood sterility, will continue fluconazole for at least 2 weeks whether oral or IV. Follow-up repeat blood culture. - FF up final urine cultures- 01/17- growing Pseudomonas - final s still pending - Blood cultures from 01/16 negative so far - restarted TF- tolerating well - wound care daily- per wound care team recommendations- S/P extensive bedside debridement 01/[address] Salazar - 01/26/18 check CXR - no significant change, KUB- no acute findings Still with spikes of fevers, ID ff added levaquin Acute on chronic respiratory failure status post tracheostomy- currently on 28% T piece Bilateral Pleural effusion, with healthcare associated pneumonia - Pigtail catheters in place- left chest tube was removed 01/19 - right pigtail catheter still in place pleural fluid cultures negative consistent with transudative effusion. bronchodilators, pulmonary toilet. pulmonary following. Repeat chest x-ray- unchanged - minimal secretions - trach care- Acute renal failure on top of chronic kidney disease HYpernatremia- HYperkalemia - resolved -creatinine stabilizing ff UO and BMP - continue on 06/29 NS- Design Verification Engineer ff. d/w staff- to give free water /PEG- reviewed EMR- not given - Kidney ultrasound unremarkable. - Nephrology ff - creatinine- stable - ff CMP in am Urinary retention - garcia placed 01/21 DM type 2 , uncontrolled - A1C 9.6, BGs still high - Levemir increased to 25 units twice a day on 02/03/2018, cont sliding scale insulin and adjust dose Patient was vomited tube feedings changes. KUB ordered non specific findings. With new formula patient has elevated BS. Increased Levemir to 25 U bid. CHRONIC RESOLVED ISSUES: Scrotal Edema/ulcerations - seen by Urology: continue wcatheter as needed, scrotal elevation NSTEMI Echo 10/19: LV systolic function is moderately reduced, EF 40-45%. continue Coreg and statin. Anemia secondary to GI bleed- Status post EGD colonoscopy. GI has signed off, patient with healed rectal ulcers and hemorrhoids. Continue Pepcid. 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 Monitor VS. Increase levemir to 25 bid monitor and adjust insulin cap trach as tolerated per pulnicola ff - Urinary Catheter Management Straight Cath placed during this visit: yes Urethral indwelling: Yes Reason for continuing: Acute urinary retention Insertion date: 01/21/18 Insertion time: 08:00 Indwelling Urethral Catheter Cath placed during this visit: yes, but has since been removed by the nurse Urethral indwelling: Yes Reason for continuing: Chronic Urinary Retention Insertion date: 01/21/18 Insertion time: 16:18 Removal date: 01/20/18 Removal time: 15:15 Results - Labs CBC & Chem 7: 02/03/18 04:34 02/03/18 04:34 Laboratory Results - last 24 hr 02/03/18 02/03/18 02/03/18 11:46 17:00 22:44 PT INR POC Glucose 335 H 320 H 282 H 02/04/18 02/04/18 02/04/18 06:14 07:18 07:43 PT 26.8 H INR 2.7 POC Glucose 274 H 277 H Microbiology 01/29/18 07:25 Blood - Peripheral Aerobic Blood Culture - Final No growth in 5 days 01/29/18 07:25 Blood - Peripheral Anaerobic Blood Culture - Final No growth in 5 days 01/29/18 07:15 Blood - Peripheral Aerobic Blood Culture - Final No growth in 5 days 01/29/18 07:15 Blood - Peripheral Anaerobic Blood Culture - Final No growth in 5 days Assessment and Plan - Plan RESPIRATORY FAILURE cva cad respiratory failure post trach bilateral effusions plan o2 as needed PULM TOILET CAP TRACH TOLERATED
[2018-02-04] MEDS: Famotidine 20 MG Tablet PO SCH ×2 (09:27→22:26)
[2018-02-04] MEDS: Polyethylene Glycol 3350 17 GM Packet PO SCH (09:28)
[2018-02-04] MEDS: Hydrocortisone Acetate 25 MG Supp RECTAL SCH ×2 (09:28→22:27)
[2018-02-04] MEDS: Insulin Detemir Inj 1,000 UNIT/10 ML Vial SQ SCH ×2 (09:28→22:27)
[2018-02-04] MEDS: Collagenase Oint 30 GM Tube TOPICAL SCH (09:29)
[2018-02-04] MEDS ORDERED: Insulin Detemir Inj 1,000 UNIT/10 ML Vial SQ ONE (09:52)
[2018-02-04] MEDS: levoFLOXacin 750 MG Tablet PO SCH (12:08)
--- NOTE | 2018-02-04 21:20 | P.PN ---
Physical Exam Vital signs: Vital Signs 02/04/18 00:00 02/04/18 04:00 02/04/18 08:00 Temperature 97.7 F 97.4 F L Pulse Rate 92 H 92 H 90 Respiratory Rate 20 20 Blood Pressure 97/55 L 100/57 L Pulse Oximetry 98 97 02/04/18 09:27 02/04/18 12:00 02/04/18 16:00 Temperature 97.7 F Pulse Rate 92 H 92 H 83 Respiratory Rate 24 20 18 Blood Pressure 111/58 L 115/65 Pulse Oximetry 100 100 100 02/04/18 16:54 02/04/18 20:00 02/04/18 20:18 Temperature 97.7 F Pulse Rate 95 H Respiratory Rate 20 Blood Pressure 100/56 L Pulse Oximetry 99 100 95 Intake & Output 02/04/18 02/04/18 02/05/18 06:59 18:59 06:59 Intake Total 200 / 200 Output Total 900 / 900 1100 / 1100 Balance -700 / -700 -1100 / -1100 Weight 76.3 kg Intake: IV 200 / 200 Diflucan 400 mg Premix Bag 200 200 / 200 ML @ 100 mls/hr IV.SIG Q24H EDE Rx#:[id number] Output: Urine 900 / 900 Urine Amount (Catheter) 1100 / 1100 Indwelling Urethral Catheter 1100 / 1100 Other: Date of Last Bowel Movement 02/03/18 02/03/18 # Bowel Movements 2 Narrative: Subjective: Late entry the patient was seen appraiser real estate today discussed with the family daughter patient chest tubes were removed and trach is downsized and capped now, will ask speech therapy to evaluate as daughter wants to see if he can talk Patient doesn't appear in acute distress, was up in the bed, no more vomiting. Roho cushin ordered. No more fevers Physical Exam GENERAL: No acute distress, awake and alert SKIN: back with sacral decubitus- deep edges no necrotic tissue, debrided at bedside 01/20- by Dr. Upton NECK: Trach in place, trach is downsized and also capped CARDIOVASCULAR: Regular rate and rhythm without murmurs, gallops, or rubs. RESPIRATORY: Breath sounds equal bilaterally. No accessory muscle use. chest tubes removed. GASTROINTESTINAL: Abdomen soft, non-tender, nondistended. +PEG tube in place : Garcia in place- placed 01/21 MUSCULOSKELETAL: No cyanosis, or edema. NEURO: neuro status at baseline- unchanged Assessment and Plan This is a 77-year-old male who initially presented with vision changes with concern for optic neuritis versus temporal arteritis. Hospital course complicated by NSTEMI, E. coli urinary tract infection, rectal bleeding with acute anemia. He became lethargic, admitted to the intensive care unit and found to have CVA. CTA head and neck revealed atherosclerotic disease. After giving TPA, the patient had tonic-clonic seizure and became obtunded with acute hypoxic and hypercarbic respiratory failure, intubated. Patient was then transferred to the hospitalist service when patient was more stable. 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 Repeat MRI unchanged. Patient also had seizures, EEG showed diffuse encephalopathy. -Continue statin, Ritalin. After discussion patient's daughter, she would like to try to get the patient off Keppra and hopefully will improve his mental status. She is aware that there is risk for seizures. Follow while off Keppra. Neuropsychology following. Was on steroids for optic neuritis. Encephalopathy persists, no change in mental status, family continues to be aggressive in goals -restart coumadin- pharmacy ff . f INR ID Recurrent fever - spiked again Recurrent UTI-prior history of ESBL E. coli- new culture - 01/17- Pseudomonas Sacral decub with possible underlying infection, osteomyelitis. Fungemia- repeat cultures negative x 48 hours Possible Aspiration PNA - Sacral decub has eschar with possible underlying osteomyelitis. Patient family refused surgical sacral debridement after seen by plastic surgery. Wound care and Dr. Upton following. 12/31 Wound cx: ESBL E.coli -Garcia catheter changed 01/09/2018, Urine culture on 01/09 grew Pseudomonas pansensitive, -Status post ciprofloxacin and imipenem. Echocardiogram on 01/12, no vegetation. Ophthalmology has seen the patient, no fungal keratitis or fungal eye infection. - Repeat blood cultures still growing Xenia tropicalis, switched back to fluconazole per infectious disease. Still having fever, rechecked blood culture , repeat urinalysis still shows large leukocyte esterase and pyuria, leukocytosis increasing, CTT still in position with increased right-sided pleural effusion. - ID ff - Started on meropenem, and vancomycin. Continue Diflucan, once documented blood sterility, will continue fluconazole for at least 2 weeks whether oral or IV. Follow-up repeat blood culture. - FF up final urine cultures- 01/17- growing Pseudomonas - final s still pending - Blood cultures from 01/16 negative so far - restarted TF- tolerating well - wound care daily- per wound care team recommendations- S/P extensive bedside debridement 01/[address] Salazar - 01/26/18 check CXR - no significant change, KUB- no acute findings Still with spikes of fevers, ID ff added levaquin Acute on chronic respiratory failure status post tracheostomy- currently on 28% T piece Bilateral Pleural effusion, with healthcare associated pneumonia - Pigtail catheters in place- left chest tube was removed 01/19 - right pigtail catheter still in place pleural fluid cultures negative consistent with transudative effusion. bronchodilators, pulmonary toilet. pulmonary following. Repeat chest x-ray- unchanged - minimal secretions - trach care- Chest tubes removed Discussed with Dr Alec byers. Trach is downsized and capped . Consult ST Acute renal failure on top of chronic kidney disease HYpernatremia- HYperkalemia - resolved -creatinine stabilizing ff UO and BMP - continue on 06/29 NS- Construction Area Manager ff. d/w staff- to give free water /PEG- reviewed EMR- not given - Kidney ultrasound unremarkable. - Nephrology ff - creatinine- stable - ff CMP in am Urinary retention - garcia placed 01/21 DM type 2 , uncontrolled - A1C 9.6, BGs still high - Levemir increased to 25 units twice a day on 02/03/2018, cont sliding scale insulin and adjust dose Patient was vomited tube feedings changes. KUB ordered non specific findings. With new formula patient has elevated BS. Increased Levemir to 25 U bid. CHRONIC RESOLVED ISSUES: Scrotal Edema/ulcerations - seen by Urology: continue wcatheter as needed, scrotal elevation NSTEMI Echo 10/19: LV systolic function is moderately reduced, EF 40-45%. continue Coreg and statin. Anemia secondary to GI bleed- Status post EGD colonoscopy. GI has signed off, patient with healed rectal ulcers and hemorrhoids. Continue Pepcid. Noted Vomiting on/off - TF held and cutting and printing machine operator consulted, tube feeding diet changed per cutting and printing machine operator recommendations - abdominal exam- benign, soft with good bowel sounds -restart tube feeds- Vital 1.5 goal of 65 - KUB unremarkable - check CMP in am- LFTs GI prophylaxis- on Pepcid DVT prophylaxis-on coumadin- INR therapeutic - pharmacy dosing 01/07 per long discussion with patient's daughter - [facility] plan- she says it's difficult for them to take her home- working - SNF- no insurance- patient here visiting from [place] when this unfortunate event happened Discussed with the nurse, family at bedside, Dr Yamini byers 02/04/18 BS still uncontrolled. Monitor VS. Increase levemir to 30 bid monitor and adjust insulin cap trach as tolerated per [place] ff patient chest tubes were removed and trach is downsized and capped now, will ask speech therapy to evaluate as daughter wants to see if he can talk - Urinary Catheter Management Straight Cath placed during this visit: yes Urethral indwelling: Yes Reason for continuing: Acute urinary retention Insertion date: 01/21/18 Insertion time: 08:00 Indwelling Urethral Catheter Cath placed during this visit: yes, but has since been removed by the nurse Urethral indwelling: Yes Reason for continuing: Chronic Urinary Retention Insertion date: 01/21/18 Insertion time: 16:18 Removal date: 01/20/18 Removal time: 15:15 Results - Labs CBC & Chem 7: 02/03/18 04:34 02/03/18 04:34 Laboratory Results - last 24 hr 02/03/18 02/04/18 02/04/18 22:44 06:14 07:18 PT INR POC Glucose 282 H 274 H 277 H 02/04/18 02/04/18 02/04/18 07:43 12:10 17:03 PT 26.8 H INR 2.7 POC Glucose 257 H 216 H Assessment and Plan - Assessment (1) Encephalopathy Code(s): G93.40 - Encephalopathy, unspecified Status: Acute (2) CVA (cerebral vascular accident) Code(s): I63.9 - Cerebral infarction, unspecified Status: Acute (3) Wound of sacral region Code(s): S31.000A - Unspecified open wound of lower back and pelvis without penetration into retroperitoneum, initial encounter Status: Acute (4) NSTEMI (non-ST elevated myocardial infarction) Code(s): I21.4 - Non-ST elevation (NSTEMI) myocardial infarction Status: Resolved (5) Anemia Code(s): D64.9 - Anemia, unspecified Status: Acute (6) Respiratory failure with hypoxia and hypercapnia Code(s): J96.91 - Respiratory failure, unspecified with hypoxia; J96.92 - Respiratory failure, unspecified with hypercapnia Status: Resolved (7) Optic neuritis Code(s): H46.9 - Unspecified optic neuritis Status: Resolved (5) Anemia Qualifiers: Anemia type: unspecified type Qualified Code(s): D64.9 - Anemia, unspecified
[2018-02-05] MEDS: Insulin NovoLIN Regular Correctional Sugar Inj SQ SCH ×4 (00:10→19:51)
[2018-02-05 07:39] LABS: INR 2.5 Ratio; Prothrombin Time 24.9 sec (9.8-11.6)
[2018-02-05] MEDS: Insulin Detemir Inj 1,000 UNIT/10 ML Vial SQ SCH ×2 (08:19→22:31)
[2018-02-05] MEDS: Famotidine 20 MG Tablet PO SCH ×2 (08:19→22:30)
[2018-02-05] MEDS: Polyethylene Glycol 3350 17 GM Packet PO SCH (08:20)
[2018-02-05] MEDS ORDERED: Insulin Detemir Inj 1,000 UNIT/10 ML Vial SQ ONE (11:15)
--- NOTE | 2018-02-05 11:19 | P.PN ---
Physical Exam Vital signs: Vital Signs 02/04/18 12:00 02/04/18 16:00 02/04/18 16:54 Temperature 97.7 F Pulse Rate 92 H 83 Respiratory Rate 20 18 Blood Pressure 111/58 L 115/65 Pulse Oximetry 100 100 99 02/04/18 20:00 02/04/18 20:18 02/05/18 00:00 Temperature 97.7 F 97.8 F Pulse Rate 94 H 95 H Respiratory Rate 20 20 Blood Pressure 100/56 L 98/57 L Pulse Oximetry 100 95 98 02/05/18 04:00 02/05/18 05:40 02/05/18 08:00 Temperature 98.5 F 97.8 F Pulse Rate 104 H 109 H 108 H Respiratory Rate 20 20 12 Blood Pressure 112/61 115/63 Pulse Oximetry 95 91 L 95 02/05/18 08:57 Temperature Pulse Rate 106 H Respiratory Rate 20 Blood Pressure Pulse Oximetry 96 Intake & Output 02/04/18 02/05/18 02/05/18 18:59 06:59 18:59 Intake Total 200 / 200 Output Total 1100 / 1100 550 / 550 Balance -1100 / -1100 -350 / -350 Weight 80.4 kg Intake: IV 200 / 200 Diflucan 400 mg Premix Bag 200 200 / 200 ML @ 100 mls/hr IV.SIG Q24H EDE Rx#:[id number] Output: Urine 550 / 550 Urine Amount (Catheter) 1100 / 1100 Indwelling Urethral Catheter 1100 / 1100 Other: Date of Last Bowel Movement 02/03/18 02/04/18 # Bowel Movements 2 Narrative: Subjective: patient chest tubes were removed and trach is downsized and capped now, speech therapy consulted to evaluate as daughter wants to see if he can talk. Bob wise ordered. Patient doesn't appear in acute distress, no more vomiting, tolerates food. No more fevers BS is still high increase levemir Physical Exam GENERAL: No acute distress, awake and alert SKIN: Back with sacral decubitus- deep edges no necrotic tissue, debrided at bedside 01/20- by Dr. Upton NECK: Trach in place, trach is downsized and also capped CARDIOVASCULAR: Regular rate and rhythm without murmurs, gallops, or rubs. RESPIRATORY: Breath sounds equal bilaterally. No accessory muscle use. chest tubes removed. GASTROINTESTINAL: Abdomen soft, non-tender, nondistended. +PEG tube in place : Garcia in place- placed 01/21 MUSCULOSKELETAL: No cyanosis, or edema. NEURO: neuro status at baseline- unchanged Assessment and Plan This is a 77-year-old male who initially presented with vision changes with concern for optic neuritis versus temporal arteritis. Hospital course complicated by NSTEMI, E. coli urinary tract infection, rectal bleeding with acute anemia. He became lethargic, admitted to the intensive care unit and found to have CVA. CTA head and neck revealed atherosclerotic disease. After giving TPA, the patient had tonic-clonic seizure and became obtunded with acute hypoxic and hypercarbic respiratory failure, intubated. Patient was then transferred to the hospitalist service when patient was more stable. 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 Repeat MRI unchanged. Patient also had seizures, EEG showed diffuse encephalopathy. -Continue statin, Ritalin. After discussion patient's daughter, she would like to try to get the patient off Keppra and hopefully will improve his mental status. She is aware that there is risk for seizures. Follow while off Keppra. Neuropsychology following. Was on steroids for optic neuritis. Encephalopathy persists, no change in mental status, family continues to be aggressive in goals -restart coumadin- pharmacy ff . f INR ID Recurrent fever - spiked again Recurrent UTI-prior history of ESBL E. coli- new culture - 01/17- Pseudomonas Sacral decub with possible underlying infection, osteomyelitis. Fungemia- repeat cultures negative x 48 hours Possible Aspiration PNA - Sacral decub has eschar with possible underlying osteomyelitis. Patient family refused surgical sacral debridement after seen by plastic surgery. Wound care and Dr. Upton following. 12/31 Wound cx: ESBL E.coli -Garcia catheter changed 01/09/2018, Urine culture on 01/09 grew Pseudomonas pansensitive, -Status post ciprofloxacin and imipenem. Echocardiogram on 01/12, no vegetation. Ophthalmology has seen the patient, no fungal keratitis or fungal eye infection. - Repeat blood cultures still growing Xenia tropicalis, switched back to fluconazole per infectious disease. Still having fever, rechecked blood culture , repeat urinalysis still shows large leukocyte esterase and pyuria, leukocytosis increasing, CTT still in position with increased right-sided pleural effusion. - ID ff - Started on meropenem, and vancomycin. Continue Diflucan, once documented blood sterility, will continue fluconazole for at least 2 weeks whether oral or IV. Follow-up repeat blood culture. - FF up final urine cultures- 01/17- growing Pseudomonas - final s still pending - Blood cultures from 01/16 negative so far - restarted TF- tolerating well - wound care daily- per wound care team recommendations- S/P extensive bedside debridement 01/[address] Salazar - 01/26/18 check CXR - no significant change, KUB- no acute findings Still with spikes of fevers, ID ff added levaquin Acute on chronic respiratory failure status post tracheostomy- currently on 28% T piece Bilateral Pleural effusion, with healthcare associated pneumonia - Pigtail catheters in place- left chest tube was removed 01/19 - right pigtail catheter still in place pleural fluid cultures negative consistent with transudative effusion. bronchodilators, pulmonary toilet. pulmonary following. Repeat chest x-ray- unchanged - minimal secretions - trach care- Chest tubes removed Discussed with Dr Alec byers. Trach is downsized and capped . Consult ST Acute renal failure on top of chronic kidney disease HYpernatremia- HYperkalemia - resolved -creatinine stabilizing ff UO and BMP - continue on 06/29 NS- Termite Renewal Inspector ff. d/w staff- to give free water /PEG- reviewed EMR- not given - Kidney ultrasound unremarkable. - Nephrology ff - creatinine- stable - ff CMP in am Urinary retention - garcia placed 01/21 DM type 2 , uncontrolled - A1C 9.6, BGs still high - Levemir increased to 25 units twice a day on 02/03/2018, cont sliding scale insulin and adjust dose Patient was vomited tube feedings changes. KUB ordered non specific findings. With new formula patient has elevated BS. Increased Levemir to 25 U bid. CHRONIC RESOLVED ISSUES: Scrotal Edema/ulcerations - seen by Urology: continue wcatheter as needed, scrotal elevation NSTEMI Echo 10/19: LV systolic function is moderately reduced, EF 40-45%. continue Coreg and statin. Anemia secondary to GI bleed- Status post EGD colonoscopy. GI has signed off, patient with healed rectal ulcers and hemorrhoids. Continue Pepcid. Noted Vomiting on/off - TF held and medical technician assistant consulted, tube feeding diet changed per medical technician assistant recommendations - abdominal exam- benign, soft with good bowel sounds -restart tube feeds- Vital 1.5 goal of 65 - KUB unremarkable - check CMP in am- LFTs GI prophylaxis- on Pepcid DVT prophylaxis-on coumadin- INR therapeutic - pharmacy dosing 01/07 per long discussion with patient's daughter - termite renewal inspector plan- she says it's difficult for them to take her home- working - SNF- no insurance- patient here visiting from [place] when this unfortunate event happened Discussed with the nurse, family at bedside, Dr Yamini byers 02/05/18 BS still uncontrolled. Monitor VS. Increase levemir to 35 bid monitor and adjust insulin Continue cap trach as tolerated per [place] ff patient chest tubes were removed and trach is downsized and capped now, speech therapy consulted to evaluate as daughter wants to see if he can talk Edema improving So far afebrile. Monitor VS closely - Urinary Catheter Management Straight Cath placed during this visit: yes Urethral indwelling: Yes Reason for continuing: Acute urinary retention Insertion date: 01/21/18 Insertion time: 08:00 Indwelling Urethral Catheter Cath placed during this visit: yes, but has since been removed by the nurse Urethral indwelling: Yes Reason for continuing: Severe pressure ulcer/wound Insertion date: 01/21/18 Insertion time: 16:18 Removal date: 01/20/18 Removal time: 15:15 Results - Labs CBC & Chem 7: 02/03/18 04:34 02/03/18 04:34 Laboratory Results - last 24 hr 02/04/18 02/04/18 02/05/18 12:10 17:03 00:00 PT INR POC Glucose 257 H 216 H 201 H 02/05/18 02/05/18 05:47 07:02 PT 24.9 H INR 2.5 POC Glucose 233 H Assessment and Plan - Assessment (1) Encephalopathy Code(s): G93.40 - Encephalopathy, unspecified Status: Acute (2) CVA (cerebral vascular accident) Code(s): I63.9 - Cerebral infarction, unspecified Status: Acute (3) Wound of sacral region Code(s): S31.000A - Unspecified open wound of lower back and pelvis without penetration into retroperitoneum, initial encounter Status: Acute (4) NSTEMI (non-ST elevated myocardial infarction) Code(s): I21.4 - Non-ST elevation (NSTEMI) myocardial infarction Status: Resolved (5) Anemia Code(s): D64.9 - Anemia, unspecified Status: Acute (6) Respiratory failure with hypoxia and hypercapnia Code(s): J96.91 - Respiratory failure, unspecified with hypoxia; J96.92 - Respiratory failure, unspecified with hypercapnia Status: Resolved (7) Optic neuritis Code(s): H46.9 - Unspecified optic neuritis Status: Resolved (5) Anemia Qualifiers: Anemia type: unspecified type Qualified Code(s): D64.9 - Anemia, unspecified
[2018-02-05] MEDS: Collagenase Oint 30 GM Tube TOPICAL SCH (15:35)
[2018-02-05] MEDS: Hydrocortisone Acetate 25 MG Supp RECTAL SCH ×2 (20:39→22:31)
[2018-02-06] MEDS: Insulin NovoLIN Regular Correctional Sugar Inj SQ SCH ×4 (01:06→19:51)
[2018-02-06] MEDS: Polyethylene Glycol 3350 17 GM Packet PO SCH (08:23)
[2018-02-06] MEDS: Famotidine 20 MG Tablet PO SCH ×2 (08:24→23:12)
[2018-02-06] MEDS: Collagenase Oint 30 GM Tube TOPICAL SCH (08:25)
[2018-02-06] MEDS: Hydrocortisone Acetate 25 MG Supp RECTAL SCH ×2 (08:25→23:15)
--- NOTE | 2018-02-06 08:59 | P.PN ---
Physical Exam Vital signs: Vital Signs 02/05/18 12:00 02/05/18 16:00 02/05/18 18:43 Temperature 97.8 F 97.5 F L Pulse Rate 102 H 96 H Respiratory Rate 16 12 Blood Pressure 120/60 106/59 L Pulse Oximetry 93 L 100 100 02/05/18 20:00 02/05/18 20:05 02/05/18 22:00 Temperature 97.8 F Pulse Rate 97 H 95 H Respiratory Rate 14 22 16 Blood Pressure 115/59 L Pulse Oximetry 02/06/18 00:00 02/06/18 04:00 02/06/18 05:18 Temperature 98 F 98.5 F Pulse Rate 95 H 96 H Respiratory Rate 15 Blood Pressure 105/59 L 118/56 L Pulse Oximetry 100 99 Intake & Output 02/05/18 02/06/18 02/06/18 18:59 06:59 18:59 Output Total 800 / 800 Balance -800 / -800 Weight 80 kg Output: Urine Amount (Catheter) 800 / 800 Indwelling Urethral Catheter 800 / 800 Other: Date of Last Bowel Movement 02/04/18 02/05/18 # Bowel Movements 1 Narrative: Subjective: patient chest tubes were removed and trach is downsized and capped now, speech therapy consulted to evaluate as daughter wants to see if he can talk. Bob wise ordered. Patient doesn't appear in acute distress, no more vomiting, tolerates food. No more fevers BS is better controlled Physical Exam GENERAL: No acute distress, awake and alert SKIN: Back with sacral decubitus- deep edges no necrotic tissue, debrided at bedside 01/20- by Dr. Upton NECK: Trach in place, trach is downsized and also capped CARDIOVASCULAR: Regular rate and rhythm without murmurs, gallops, or rubs. RESPIRATORY: Breath sounds equal bilaterally. No accessory muscle use. chest tubes removed. GASTROINTESTINAL: Abdomen soft, non-tender, nondistended. +PEG tube in place : Garcia in place- placed 01/21 MUSCULOSKELETAL: No cyanosis, or edema. NEURO: neuro status at baseline- unchanged Assessment and Plan This is a 77-year-old male who initially presented with vision changes with concern for optic neuritis versus temporal arteritis. Hospital course complicated by NSTEMI, E. coli urinary tract infection, rectal bleeding with acute anemia. He became lethargic, admitted to the intensive care unit and found to have CVA. CTA head and neck revealed atherosclerotic disease. After giving TPA, the patient had tonic-clonic seizure and became obtunded with acute hypoxic and hypercarbic respiratory failure, intubated. Patient was then transferred to the hospitalist service when patient was more stable. 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 Repeat MRI unchanged. Patient also had seizures, EEG showed diffuse encephalopathy. -Continue statin, Ritalin. After discussion patient's daughter, she would like to try to get the patient off Keppra and hopefully will improve his mental status. She is aware that there is risk for seizures. Follow while off Keppra. Neuropsychology following. Was on steroids for optic neuritis. Encephalopathy persists, no change in mental status, family continues to be aggressive in goals -restart coumadin- pharmacy ff . f INR ID Recurrent fever - spiked again Recurrent UTI-prior history of ESBL E. coli- new culture - 01/17- Pseudomonas Sacral decub with possible underlying infection, osteomyelitis. Fungemia- repeat cultures negative x 48 hours Possible Aspiration PNA - Sacral decub has eschar with possible underlying osteomyelitis. Patient family refused surgical sacral debridement after seen by plastic surgery. Wound care and Dr. Upton following. 12/31 Wound cx: ESBL E.coli -Garcia catheter changed 01/09/2018, Urine culture on 01/09 grew Pseudomonas pansensitive, -Status post ciprofloxacin and imipenem. Echocardiogram on 01/12, no vegetation. Ophthalmology has seen the patient, no fungal keratitis or fungal eye infection. - Repeat blood cultures still growing Xenia tropicalis, switched back to fluconazole per infectious disease. Still having fever, rechecked blood culture , repeat urinalysis still shows large leukocyte esterase and pyuria, leukocytosis increasing, CTT still in position with increased right-sided pleural effusion. - ID ff - Started on meropenem, and vancomycin. Continue Diflucan, once documented blood sterility, will continue fluconazole for at least 2 weeks whether oral or IV. Follow-up repeat blood culture. - FF up final urine cultures- 01/17- growing Pseudomonas - final s still pending - Blood cultures from 01/16 negative so far - restarted TF- tolerating well - wound care daily- per wound care team recommendations- S/P extensive bedside debridement 01/[address] Salazar - 01/26/18 check CXR - no significant change, KUB- no acute findings Still with spikes of fevers, ID ff added levaquin Acute on chronic respiratory failure status post tracheostomy- currently on 28% T piece Bilateral Pleural effusion, with healthcare associated pneumonia - Pigtail catheters in place- left chest tube was removed 01/19 - right pigtail catheter still in place pleural fluid cultures negative consistent with transudative effusion. bronchodilators, pulmonary toilet. pulmonary following. Repeat chest x-ray- unchanged - minimal secretions - trach care- Chest tubes removed Discussed with Dr Michael pulnicola. Trach is downsized and capped . Consult ST Acute renal failure on top of chronic kidney disease HYpernatremia- HYperkalemia - resolved -creatinine stabilizing ff UO and BMP - continue on 06/29 NS- Oceanography Professor ff. d/w staff- to give free water /PEG- reviewed EMR- not given - Kidney ultrasound unremarkable. - Nephrology ff - creatinine- stable - ff CMP in am Urinary retention - garcia placed 01/21 DM type 2 , uncontrolled - A1C 9.6, BGs still high - Levemir increased to 25 units twice a day on 02/03/2018, cont sliding scale insulin and adjust dose Patient was vomited tube feedings changes. KUB ordered non specific findings. With new formula patient has elevated BS. Increased Levemir to 25 U bid. CHRONIC RESOLVED ISSUES: Scrotal Edema/ulcerations - seen by Urology: continue wcatheter as needed, scrotal elevation NSTEMI Echo 10/19: LV systolic function is moderately reduced, EF 40-45%. continue Coreg and statin. Anemia secondary to GI bleed- Status post EGD colonoscopy. GI has signed off, patient with healed rectal ulcers and hemorrhoids. Continue Pepcid. Noted Vomiting on/off - TF held and feather separator consulted, tube feeding diet changed per feather separator recommendations - abdominal exam- benign, soft with good bowel sounds -restart tube feeds- Vital 1.5 goal of 65 - KUB unremarkable - check CMP in am- LFTs GI prophylaxis- on Pepcid DVT prophylaxis-on coumadin- INR therapeutic - pharmacy dosing 01/07 per long discussion with patient's daughter - termite treater plan- she says it's difficult for them to take her home- working - SNF- no insurance- patient here visiting from [place] when this unfortunate event happened Discussed with the nurse, family at bedside, Dr Yamini byers 02/06/18 BS better controlled. Monitor VS. Levemir to 25 bid monitor and adjust insulin Continue cap trach as tolerated per [place] ff patient chest tubes were removed and trach is downsized and capped now, speech therapy consulted to evaluate as daughter wants to see if he can talk Edema improving So far afebrile. Monitor VS closely Discussed with the daughter, and the nurse - Urinary Catheter Management Straight Cath placed during this visit: yes Urethral indwelling: Yes Reason for continuing: Acute urinary retention Insertion date: 01/21/18 Insertion time: 08:00 Indwelling Urethral Catheter Cath placed during this visit: yes, but has since been removed by the nurse Urethral indwelling: Yes Reason for continuing: Severe pressure ulcer/wound Insertion date: 01/21/18 Insertion time: 16:18 Removal date: 01/20/18 Removal time: 15:15 Results - Labs CBC & Chem 7: 02/03/18 04:34 02/03/18 04:34 Laboratory Results - last 24 hr 02/05/18 02/05/18 02/06/18 11:19 18:38 00:56 POC Glucose 240 H 204 H 133 H 02/06/18 02/06/18 02/06/18 06:21 07:30 07:31 POC Glucose 68 69 74 02/06/18 08:21 POC Glucose 84 Assessment and Plan - Assessment (1) Encephalopathy Code(s): G93.40 - Encephalopathy, unspecified Status: Acute (2) CVA (cerebral vascular accident) Code(s): I63.9 - Cerebral infarction, unspecified Status: Acute (3) Wound of sacral region Code(s): S31.000A - Unspecified open wound of lower back and pelvis without penetration into retroperitoneum, initial encounter Status: Acute (4) NSTEMI (non-ST elevated myocardial infarction) Code(s): I21.4 - Non-ST elevation (NSTEMI) myocardial infarction Status: Resolved (5) Anemia Code(s): D64.9 - Anemia, unspecified Status: Acute (6) Respiratory failure with hypoxia and hypercapnia Code(s): J96.91 - Respiratory failure, unspecified with hypoxia; J96.92 - Respiratory failure, unspecified with hypercapnia Status: Resolved (7) Optic neuritis Code(s): H46.9 - Unspecified optic neuritis Status: Resolved (5) Anemia Qualifiers: Anemia type: unspecified type Qualified Code(s): D64.9 - Anemia, unspecified
[2018-02-06] MEDS: Insulin Detemir Inj 1,000 UNIT/10 ML Vial SQ SCH (11:05)
[2018-02-06 13:10] LABS: Prothrombin Time 20.7 sec (9.8-11.6)
[2018-02-06] MEDS: levoFLOXacin 750 MG Tablet PO SCH (13:35)
[2018-02-06] MEDS: Insulin Glargine Inj 1,000 UNITS/10 ML Vial SQ SCH ×2 (19:51→23:14)
[2018-02-07] MEDS: Insulin NovoLIN Regular Correctional Sugar Inj SQ SCH ×4 (06:06→18:09)
--- NOTE | 2018-02-07 08:16 | P.PN ---
Subjective Interval history: opens eyes NAD O2 SAT 99% ON T TUBE Physical Exam Vital signs: Vital Signs 02/06/18 08:30 02/06/18 09:46 02/06/18 10:00 Temperature Pulse Rate 92 H 97 H Respiratory Rate 16 21 Blood Pressure Pulse Oximetry 99 02/06/18 12:00 02/06/18 13:03 02/06/18 16:00 Temperature 97.4 F L 97.4 F L Pulse Rate 90 90 91 H Respiratory Rate 16 15 16 Blood Pressure 112/55 L 117/63 Pulse Oximetry 98 100 02/06/18 19:00 02/06/18 20:00 02/06/18 20:13 Temperature 97.9 F Pulse Rate 96 H 91 H Respiratory Rate 22 16 Blood Pressure 93/50 L Pulse Oximetry 100 99 96 02/06/18 22:00 02/07/18 00:00 02/07/18 01:52 Temperature 98 F Pulse Rate 99 H 101 H Respiratory Rate 15 22 17 Blood Pressure 105/56 L 110/59 L Pulse Oximetry 98 02/07/18 04:00 Temperature 97.9 F Pulse Rate 99 H Respiratory Rate 22 Blood Pressure 107/61 Pulse Oximetry 99 Intake & Output 02/06/18 02/07/18 02/07/18 18:59 06:59 18:59 Intake Total 200 / 200 Output Total 1800 / 1800 800 / 800 Balance -1800 / -1800 -800 / -800 200 / 200 Weight 80 kg Intake: IV 200 / 200 Diflucan 400 mg Premix Bag 200 200 / 200 ML @ 100 mls/hr IV.SIG Q24H [facility] Rx#:[id number] Output: Urine 800 / 800 Urine Amount (Catheter) 1800 / 1800 Indwelling Urethral Catheter 1800 / 1800 Other: Date of Last Bowel Movement 02/05/18 02/05/18 Narrative: Subjective: patient chest tubes were removed and trach is downsized and capped now, speech therapy consulted to evaluate as daughter wants to see if he can talk. Bob wise ordered. Patient doesn't appear in acute distress, no more vomiting, tolerates food. No more fevers BS is better controlled Physical Exam GENERAL: No acute distress, awake and alert SKIN: Back with sacral decubitus- deep edges no necrotic tissue, debrided at bedside 01/20- by Dr. Upton NECK: Trach in place, trach is downsized and also capped CARDIOVASCULAR: Regular rate and rhythm without murmurs, gallops, or rubs. RESPIRATORY: Breath sounds equal bilaterally. No accessory muscle use. chest tubes removed. GASTROINTESTINAL: Abdomen soft, non-tender, nondistended. +PEG tube in place : Garcia in place- placed 01/21 MUSCULOSKELETAL: No cyanosis, or edema. NEURO: neuro status at baseline- unchanged Assessment and Plan This is a 77-year-old male who initially presented with vision changes with concern for optic neuritis versus temporal arteritis. Hospital course complicated by NSTEMI, E. coli urinary tract infection, rectal bleeding with acute anemia. He became lethargic, admitted to the intensive care unit and found to have CVA. CTA head and neck revealed atherosclerotic disease. After giving TPA, the patient had tonic-clonic seizure and became obtunded with acute hypoxic and hypercarbic respiratory failure, intubated. Patient was then transferred to the hospitalist service when patient was more stable. 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 Repeat MRI unchanged. Patient also had seizures, EEG showed diffuse encephalopathy. -Continue statin, Ritalin. After discussion patient's daughter, she would like to try to get the patient off Keppra and hopefully will improve his mental status. She is aware that there is risk for seizures. Follow while off Keppra. Neuropsychology following. Was on steroids for optic neuritis. Encephalopathy persists, no change in mental status, family continues to be aggressive in goals -restart coumadin- pharmacy ff . f INR ID Recurrent fever - spiked again Recurrent UTI-prior history of ESBL E. coli- new culture - 01/17- Pseudomonas Sacral decub with possible underlying infection, osteomyelitis. Fungemia- repeat cultures negative x 48 hours Possible Aspiration PNA - Sacral decub has eschar with possible underlying osteomyelitis. Patient family refused surgical sacral debridement after seen by plastic surgery. Wound care and Dr. Upton following. 12/31 Wound cx: ESBL E.coli -Garcia catheter changed 01/09/2018, Urine culture on 01/09 grew Pseudomonas pansensitive, -Status post ciprofloxacin and imipenem. Echocardiogram on 01/12, no vegetation. Ophthalmology has seen the patient, no fungal keratitis or fungal eye infection. - Repeat blood cultures still growing Xenia tropicalis, switched back to fluconazole per infectious disease. Still having fever, rechecked blood culture , repeat urinalysis still shows large leukocyte esterase and pyuria, leukocytosis increasing, CTT still in position with increased right-sided pleural effusion. - ID ff - Started on meropenem, and vancomycin. Continue Diflucan, once documented blood sterility, will continue fluconazole for at least 2 weeks whether oral or IV. Follow-up repeat blood culture. - FF up final urine cultures- 01/17- growing Pseudomonas - final s still pending - Blood cultures from 01/16 negative so far - restarted TF- tolerating well - wound care daily- per wound care team recommendations- S/P extensive bedside debridement 01/[address] Salazar - 01/26/18 check CXR - no significant change, KUB- no acute findings Still with spikes of fevers, ID ff added levaquin Acute on chronic respiratory failure status post tracheostomy- currently on 28% T piece Bilateral Pleural effusion, with healthcare associated pneumonia - Pigtail catheters in place- left chest tube was removed 01/19 - right pigtail catheter still in place pleural fluid cultures negative consistent with transudative effusion. bronchodilators, pulmonary toilet. pulmonary following. Repeat chest x-ray- unchanged - minimal secretions - trach care- Chest tubes removed Discussed with Dr Michael pulnicola. Trach is downsized and capped . Consult ST Acute renal failure on top of chronic kidney disease HYpernatremia- HYperkalemia - resolved -creatinine stabilizing ff UO and BMP - continue on 06/29 NS- User Interface Developer ff. d/w staff- to give free water /PEG- reviewed EMR- not given - Kidney ultrasound unremarkable. - Nephrology ff - creatinine- stable - ff CMP in am Urinary retention - garcia placed 01/21 DM type 2 , uncontrolled - A1C 9.6, BGs still high - Levemir increased to 25 units twice a day on 02/03/2018, cont sliding scale insulin and adjust dose Patient was vomited tube feedings changes. KUB ordered non specific findings. With new formula patient has elevated BS. Increased Levemir to 25 U bid. CHRONIC RESOLVED ISSUES: Scrotal Edema/ulcerations - seen by Urology: continue wcatheter as needed, scrotal elevation NSTEMI Echo 10/19: LV systolic function is moderately reduced, EF 40-45%. continue Coreg and statin. Anemia secondary to GI bleed- Status post EGD colonoscopy. GI has signed off, patient with healed rectal ulcers and hemorrhoids. Continue Pepcid. Noted Vomiting on/off - TF held and transfer agent consulted, tube feeding diet changed per transfer agent recommendations - abdominal exam- benign, soft with good bowel sounds -restart tube feeds- Vital 1.5 goal of 65 - KUB unremarkable - check CMP in am- LFTs GI prophylaxis- on Pepcid DVT prophylaxis-on coumadin- INR therapeutic - pharmacy dosing 01/07 per long discussion with patient's daughter - medical terminologist plan- she says it's difficult for them to take her home- working - SNF- no insurance- patient here visiting from [place] when this unfortunate event happened Discussed with the nurse, family at bedside, Dr Yamini byers 02/06/18 BS better controlled. Monitor VS. Levemir to 25 bid monitor and adjust insulin Continue cap trach as tolerated per pulm ff patient chest tubes were removed and trach is downsized and capped now, speech therapy consulted to evaluate as daughter wants to see if he can talk Edema improving So far afebrile. Monitor VS closely Discussed with the daughter, and the nurse - Urinary Catheter Management Straight Cath placed during this visit: yes Urethral indwelling: Yes Reason for continuing: Acute urinary retention Insertion date: 01/21/18 Insertion time: 08:00 Indwelling Urethral Catheter Cath placed during this visit: yes, but has since been removed by the nurse Urethral indwelling: Yes Reason for continuing: Chronic Urinary Retention Insertion date: 01/21/18 Insertion time: 16:18 Removal date: 01/20/18 Removal time: 15:15 Results - Labs CBC & Chem 7: 02/03/18 04:34 02/03/18 04:34 Laboratory Results - last 24 hr 02/06/18 02/06/18 02/06/18 08:21 11:58 12:39 PT 20.7 H INR 2.0 POC Glucose 84 87 02/06/18 02/06/18 02/07/18 18:49 23:14 05:26 PT INR POC Glucose 95 178 H 198 H Assessment and Plan - Plan RESPIRATORY FAILURE cva cad respiratory failure post trach bilateral effusions plan o2 as needed PULM TOILET CAP TRACH TOLERATED F/U CXRAY
[2018-02-07 09:48] LABS: Prothrombin Time 20.3 sec (9.8-11.6)
[2018-02-07] MEDS: Hydrocortisone Acetate 25 MG Supp RECTAL SCH ×2 (09:56→20:37)
[2018-02-07] MEDS: Famotidine 20 MG Tablet PO SCH ×2 (09:57→20:37)
[2018-02-07] MEDS: Polyethylene Glycol 3350 17 GM Packet PO SCH (09:57)
[2018-02-07] MEDS: Insulin Glargine Inj 1,000 UNITS/10 ML Vial SQ SCH ×2 (09:57→20:36)
[2018-02-07] MEDS: Collagenase Oint 30 GM Tube TOPICAL SCH (09:58)
--- NOTE | 2018-02-07 15:42 | P.PN ---
Subjective Interval history: Follow up on patient with CVA, optic neuritis, seizures. Patient seen and examined. Patient seated in bedside chair. Patient satting 99% on T-tube. He appears comfortable at present. Discussed with nursing staff. Patient did not tolerate capping trial secondary to desaturation. Physical Exam Vital signs: Vital Signs 02/06/18 16:00 02/06/18 19:00 02/06/18 20:00 Temperature 97.4 F L 97.9 F Pulse Rate 91 H 96 H Respiratory Rate 16 22 Blood Pressure 117/63 93/50 L Pulse Oximetry 100 100 99 02/06/18 20:13 02/06/18 22:00 02/07/18 00:00 Temperature 98 F Pulse Rate 91 H 99 H Respiratory Rate 16 15 22 Blood Pressure 105/56 L Pulse Oximetry 96 98 02/07/18 01:52 02/07/18 04:00 02/07/18 07:56 Temperature 97.9 F Pulse Rate 101 H 99 H 102 H Respiratory Rate 17 22 19 Blood Pressure 110/59 L 107/61 Pulse Oximetry 99 100 02/07/18 08:00 Temperature 97.5 F L Pulse Rate 100 H Respiratory Rate 28 H Blood Pressure 113/65 Pulse Oximetry 100 Intake & Output 02/06/18 02/07/18 02/07/18 18:59 06:59 18:59 Intake Total 200 / 200 Output Total 1800 / 1800 800 / 800 Balance -1800 / -1800 -800 / -800 200 / 200 Weight 80 kg Intake: IV 200 / 200 Diflucan 400 mg Premix Bag 200 200 / 200 ML @ 100 mls/hr IV.SIG Q24H [facility] Rx#:[id number] Output: Urine 800 / 800 Urine Amount (Catheter) 1800 / 1800 Indwelling Urethral Catheter 1800 / 1800 Other: Date of Last Bowel Movement 02/05/18 02/05/18 02/07/18 Narrative: GENERAL: WDWN male patient, INAD. Awake, sitting up in chair. Family at the bedside. SKIN: Warm and dry. +sacral decub per wound care notes. HEAD: Atraumatic. Normocephalic. EYES: Pupils equal and round. No scleral icterus. No injection or drainage. ENT: No nasal bleeding or discharge. Mucous membranes pink and moist. NECK: Trachea midline. Trach in place. CARDIOVASCULAR: Regular rate and rhythm. RESPIRATORY: No accessory muscle use. Clear to auscultation. Breath sounds equal bilaterally. GASTROINTESTINAL: Abdomen soft, non-tender, nondistended. PEG in place. GENITOURINARY: Garcia in place - placed 01/21 MUSCULOSKELETAL: Extremities without clubbing, cyanosis, or edema. NEUROLOGICAL: Awake. Unable to follow commands. Nonverbal. PSYCHIATRIC: Calm. - Urinary Catheter Management Straight Cath placed during this visit: yes Urethral indwelling: Yes Reason for continuing: Acute urinary retention Insertion date: 01/21/18 Insertion time: 08:00 Indwelling Urethral Catheter Cath placed during this visit: yes, but has since been removed by the nurse Urethral indwelling: Yes Reason for continuing: Chronic Urinary Retention Insertion date: 01/21/18 Insertion time: 16:18 Removal date: 01/20/18 Removal time: 15:15 Results - Labs CBC & Chem 7: 02/12/18 04:05 02/12/18 04:05 Laboratory Results - last 24 hr 02/06/18 02/06/18 02/07/18 18:49 23:14 05:26 PT INR POC Glucose 95 178 H 198 H 02/07/18 02/07/18 07:45 11:20 PT 20.3 H INR 2.0 POC Glucose 250 H Microbiology 01/03/18 17:00 Fluid - Pleural fluid Acid Fast Bacilli Smear - Final No acid fast bacilli seen 01/03/18 17:00 Fluid - Pleural fluid Mycobacterial Culture - Preliminary No growth in 5 weeks - Imaging ITS Impressions Head MRI 01/02/18 00:00 CONCLUSION: 1. 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 2. Cerebral atrophy and chronic ischemic small vessel vasculopathy. Chest CT 01/03/18 00:00 CONCLUSION: 1. Large bilateral pleural effusions occupying more than half of the right and left hemithorax. Abdomen/Pelvis CT 01/13/18 00:00 CONCLUSION: 1. Small bilateral pleural effusions and basilar infiltrates with bilateral chest tubes in place. 2. No evidence of ascites or bowel dilatation. Abdomen/Bladder Ultrasound 01/15/18 00:00 CONCLUSION: 1. Negative renal sonogram. Abdomen X-Ray 01/26/18 00:00 CONCLUSION: Nonobstructive bowel gas pattern. Chest X-Ray 02/01/18 18:51 CONCLUSION: 1. Minimal improvement of the bilateral pulmonary infiltrates. 2. Small stable bilateral pleural effusions. 3. No evidence of pneumothorax. Assessment and Plan - Assessment (1) Encephalopathy Code(s): G93.40 - Encephalopathy, unspecified Status: Acute (2) CVA (cerebral vascular accident) Code(s): I63.9 - Cerebral infarction, unspecified Status: Acute (3) Wound of sacral region Code(s): S31.000A - Unspecified open wound of lower back and pelvis without penetration into retroperitoneum, initial encounter Status: Acute (4) NSTEMI (non-ST elevated myocardial infarction) Code(s): I21.4 - Non-ST elevation (NSTEMI) myocardial infarction Status: Resolved (5) Anemia Code(s): D64.9 - Anemia, unspecified Status: Acute (6) Respiratory failure with hypoxia and hypercapnia Code(s): J96.91 - Respiratory failure, unspecified with hypoxia; J96.92 - Respiratory failure, unspecified with hypercapnia Status: Resolved (7) Optic neuritis Code(s): H46.9 - Unspecified optic neuritis Status: Resolved - Plan This is a 77-year-old male who initially presented with vision changes with concern for optic neuritis versus temporal arteritis. Hospital course complicated by NSTEMI, E. coli urinary tract infection, rectal bleeding with acute anemia. He became lethargic, admitted to the intensive care unit and found to have CVA. CTA head and neck revealed atherosclerotic disease. After giving TPA, the patient had tonic-clonic seizure and became obtunded with acute hypoxic and hypercarbic respiratory failure, intubated. Patient was then transferred to the hospitalist service when patient was more stable. 02/07 Patient is stable. No significant changes. DW nursing staff, no acute events noted. 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 Repeat MRI unchanged. Patient also had seizures, EEG showed diffuse encephalopathy. -Continue statin, Ritalin. After discussion patient's daughter, she would like to try to get the patient off Keppra and hopefully will improve his mental status. She is aware that there is risk for seizures. Follow while off Keppra. No seizure activity reported. -Neuropsychology following. Was on steroids for optic neuritis. Encephalopathy persists, no change in mental status, family continues to be aggressive in goals. -On coumadin- pharmacy ff . f INR. INR 2.0 today. ID Recurrent fever Recurrent UTI-prior history of ESBL E. coli- new culture - 01/17- Pseudomonas Sacral decub with possible underlying infection, osteomyelitis. Fungemia- repeat cultures negative x 48 hours Possible Aspiration PNA - Sacral decub has eschar with possible underlying osteomyelitis. Patient family refused surgical sacral debridement after seen by plastic surgery. Wound care and Dr. Upton following. 12/31 Wound cx: ESBL E.coli -Garcia catheter changed 01/21/2018, Urine culture on 01/09 grew Pseudomonas pansensitive -Status post ciprofloxacin and imipenem. Echocardiogram on 01/12, no vegetation. Ophthalmology has seen the patient, no fungal keratitis or fungal eye infection. - 01/11 Repeat blood cultures still growing Xenia tropicalis, switched back to fluconazole per infectious disease. Still having fever, rechecked blood culture , repeat urinalysis still shows large leukocyte esterase and pyuria, leukocytosis increasing, CTT still in position with increased right-sided pleural effusion. - ID ff - Treated with meropenem, levaquin and vancomycin. Continue Diflucan, once documented blood sterility, will continue fluconazole for at least 2 weeks whether oral or IV. Follow-up repeat blood culture - no growth x 5 days - final urine cultures- 01/17- growing Pseudomonas - repeat UCX 01/27 and 01/28 with no growth - restarted TF- tolerating well - wound care daily- per wound care team recommendations- S/P extensive bedside debridement 01/[address] Salazar - 01/26/18 check CXR - no significant change, KUB- no acute findings Acute on chronic respiratory failure status post tracheostomy- currently on 28% T piece Bilateral Pleural effusion, with healthcare associated pneumonia - Pigtail catheters placed pleural fluid cultures negative consistent with transudative effusion. bronchodilators, pulmonary toilet. pulmonary following. Repeat chest x-ray- unchanged - minimal secretions - trach care- Chest tubes removed Discussed with Dr Michael pulnicola. Trach is downsized and capped . Consult ST Acute renal failure on top of chronic kidney disease HYpernatremia- HYperkalemia - resolved -creatinine stabilizing ff UO and BMP - continue on 06/29 NS- International First Officer ff. d/w staff- to give free water /PEG- reviewed EMR- not given - Kidney ultrasound unremarkable. - Nephrology ff - creatinine- stable Urinary retention - garcia placed 01/21 DM type 2 , uncontrolled - A1C 9.6 - Lantus dose increased 02/06 to 25u BID. Blood sugars fairly well controlled - cont sliding scale insulin and adjust dose CHRONIC RESOLVED ISSUES: Scrotal Edema/ulcerations - seen by Urology: continue wcatheter as needed, scrotal elevation NSTEMI Echo 10/19: LV systolic function is moderately reduced, EF 40-45%. continue Coreg and statin. Anemia secondary to GI bleed- Status post EGD colonoscopy. GI has signed off, patient with healed rectal ulcers and hemorrhoids. Continue Pepcid. Hgb appears stable. Will repeat CBC in next several days. Noted Vomiting on/off - TF held and upper doubler consulted, tube feeding diet changed per upper doubler recommendations - abdominal exam- benign, soft with good bowel sounds -restart tube feeds- Vital 1.5 goal of 65 - KUB unremarkable GI prophylaxis- on Pepcid DVT prophylaxis-on coumadin- INR therapeutic - pharmacy dosing Code Status: FULL Discharge Planning: Difficult placement, no payor source. CM assists with ongoing discharge planning. (5) Anemia Qualifiers: Anemia type: unspecified type Qualified Code(s): D64.9 - Anemia, unspecified
[2018-02-08] MEDS: Insulin NovoLIN Regular Correctional Sugar Inj SQ SCH ×4 (00:20→18:21)
[2018-02-08] MEDS ORDERED: Calcium Chloride Inj 1 GM/10 ML Syringe IV.CONT ONE (05:00)
[2018-02-08] MEDS ORDERED: Sodium Bicarbonate 8.4% Inj 50 MEQ/50 ML Syringe IV.CONT ONE (05:00)
--- NOTE | 2018-02-08 07:56 | P.PCN ---
Date of procedure: 02/08/18 Pre-op diagnosis: Asystole Post-op diagnosis: other (Assist today with 10 minutes CPR and ROSC) Procedure: CPR: A CODE BLUE was called. Apparently patient was noted to aspirate earlier this a.m. At 7250 AM patient was found unresponsive pulseless rhythm asystole. Immediate CPR was started. I arrived at the bedside, CPR was continued. One amp of epinephrine given without response. CPR continued and at timely intervals epinephrine additional 2 Amps given. Patient had a cuff less trach with evidence of aspiration. Large amount of tube feeds aspirated from tracheostomy tube. The cuffless trach was exchanged for a 8.0 Shiley tracheostomy cuffed. With improved bag and mask ventilation and after 3 epinephrine, 1 amp of calcium, 1 amp of bicarb, patient regained a perfusing rhythm. Return of spontaneous circulation at 735. Total CPR time 10 minutes Anesthesia: none Estimated blood loss (mL): 0 Pathology: none sent Condition: critical Disposition: ICU
--- NOTE | 2018-02-08 07:58 | P.PNCC ---
Subjective Subjective Remarks/Hospital Course: This is a 77-year-old male who initially presented with vision changes and concern for optic neuritis versus temporal arteritis. His initial presentation was on 10/14. His hospital course has been complicated by an NSTEMI with troponins which peaked at 10, ESBL E. coli urinary tract infection, rectal bleeding suspected from bleeding hemorrhoids, acute anemia secondary to blood loss with hemoglobin started around 14 and is trended down to 9.7 this morning. On his initial MRA he was found to have significant atherosclerotic cerebrovascular disease in all vascular territories. Today, he had an acute mental status change and was obtunded. Rapid response and stroke alert was called. His initial NIH stroke scale was 22. Dr. goldstein had conversations with Dr. Ulloa and neurology as well as Dr. sierra with gastroenterology. GI feels comfortable with giving thrombolytics and neurology feels strongly that this patient would benefit from systemic IV TPA therapy. I evaluated the patient on arrival to the intensive care unit. The patient is arousable, but very somnolent. He is Setswana speaking, and it is very difficult to ascertain whether or not he can follow commands. He does move all extremities spontaneously, although it appears that his left side is weaker than his right. He has noted facial droop. CT head is negative for acute hemorrhage. CTA head neck is significant for the same multivessel cerebrovascular disease that was present on admission. Given the high-risk nature of the stroke as well as his acute anemia this hospitalization, in preparation for giving emergent IV systemic TPA, I placed an arterial line as well as a large-bore peripheral IV so that we could draw serial labs, monitor his hemoglobin, and give blood products if necessary. I also had an additional discussion with the family where I reconfirmed that their goals were aggressive and they fully understood the significant risk of life-threatening hemorrhage associated with systemic TPA in a patient with new anemia and suspected GI bleeding. The family expressed understanding of his condition and understanding of the heightened risk of life-threatening bleeding, but still urged that we needed to get TPA. Immediately after giving IV TPA, patient had a tonic clonic seizure (witnessed on EEG) and became obtunded with acute hypoxic and hypercarbic respiratory failure and was emergently intubated (see separate procedure note for details). 11/10: remains intubated. encephalopathy persists. hgb stable s/p TPA. ~350cc bloody OG tube output, but this is slowing down. 11/11: more awake. on SBT. follows commands. 11/12: remains extubated. off vasopressors. no changes in mental status. 11/18/17 CCM Reconsult Note Patient was transferred to ICU today after a Halicat was called for AMS, hypoxia , high fever. Apparently patient was lethargic since a.m. in the last hour had been unresponsive and hence Halicat was called. Patient had a fever of 101.4 in a.m., T-max is 101.6. I immediately evaluated the patient in the ICU. Patient is completely unresponsive, oxygen saturation 87% on 4 L nasal cannula. Hypopneic. No response to deep pain. Patient was confirmed to be a full code and I proceeded with endotracheal intubation place him on mechanical ventilation as patient was not protecting airway. More history was obtained from discussion with ID Dr. Jalloh. She indicated patient had been increasingly lethargic with fever and also had urinary retention.She has discontinued Ertapenem, and started on meropenem, vancomycin and micafungin. Cultures have been sent and are pending now. Source of sepsis appears to be aspiration pneumonia versus UTI. Repeat UA and panculture pending at this time. Patient was borderline hypotensive prior to intubation and I have started on Levophed to avoid hypotension post intubation. Receiving 1 L normal saline bolus now, give additional fluid bolus if patient requires continued Levophed will place central line 11/19: remains intubated. holding aggrenox for possible thoracentesis today, but family hesitant to consent with concerns over bleeding risk. Cr remains elevated. discussion with Dr. Bernal, unlikely to benefit currently from draining effusion, so at his recommendation, will proceed with attempted weaning from mechanical ventilation and treat effusion conservatively. 11/20: Overnight /early this a.m. ,the patient was noted to have large amount of rectal bleeding. Aggrenox held since 11/18, 2/2 reintubation. Type and screen ordered. Serial H&H currently be performed. Hemodynamically stable. GI has been reconsulted. Protonix previously given PRN, will schedule BID. Patient was reintubated emergently 11/18, plan for continue CPAP trials. Tube feedings until evaluation by GI. ASA placed on hold , in the setting of GI bleeding. 11/21: EGD and colonoscopy performed yesterday. Patient was noted to be constipated ,disimpacted per GI. Patient noted to have hemorrhoids which was clipped. No further bleeding throughout the night. Chest x-ray showed improvement. CPAP trials initiated this a.m.. ASA 81 mg resumed. 11/22: Patient tolerated CPAP trials approximately 13 hours yesterday. Initiation of tube feeds per GI yesterday, no residuals. This am , family concerned patient not responsive. CT brain , ammonia level and EEG pending. Neurology has been reconsulted. Upon my entering the room, this afternoon, the patient was awake, tracking and squeezing my hand upon commands, with right hand. The patient received 1 u PRBC for Hgb 7.2. Post transfusion CBC pending. Plan for quantification of pleural fluid for possible thoracentesis in a.m.. 11/23: No acute events overnight. Patient remains off all sedation. Noted spontaneous eye opening, tracking following commands squeezing hands right greater than left. Neurology following plan for MRI this a.m., repeat EEG pending. Hemoglobin stable this a.m.. Chest x-ray slight improvement, plan for quantification via ultrasound of pleural effusions for possible thoracentesis today. 3 failed attempts at CPAP trials yesterday. 1548-MRI resulted findings consistent of small areas of acute cortical infarct, new since 11/09/2017. I contacted neurology, Dr. Geronimo informed of results. After Dr. Palma's review of imaging and records, it was determined most likely cardioembolic since is affecting both sides and failure with aspirin and Persantine. Ischemic stroke heparin protocol initiated. Careful review secondary to patient history of GI bleed 11/20, thought to be emanating from hemorrhoid ,however due to poor suboptimal prep, they unable to have optimal visualization per Dr. Jones. 11/24: Late entry note. Patient seen and evaluated 614. No acute events overnight. Patient continues on heparin infusion no active signs of bleeding. PTT within therapeutic range. The patient is less responsive this a.m., spontaneous eye opening, not following my commands. Not moving his extremities spontaneously for me as previously performed yesterday. tube feeds reinitiated. Chest x-ray showed further improvement in aeration of lungs the patient continues on FiO2 of 0.35. Plan for CPAP trials today. 11/25: No acute events overnight. Neurological status unchanged. Spontaneous eye opening patient continues not following any commands. Dr. Geronimo at bedside evaluating patient, no change. Patient tolerated CPAP trials approximately 12 hours yesterday. Tolerating tube feeds. Chest x-ray remains unchanged from yesterday. Hemoccult stool negative. Heparin infusion continued. family at bedside. 11/26: Late entry note. Patient seen at 1240pm. Last night the patient was noted to be continuously hyperglycemic. Levemir added to medication regimen 10 mg/day hemoglobin dropped 2 g/dL in 2 days hemoglobin now 7.7, patient to be transfused 1 unit packed red blood. No obvious signs of bleeding Hemoccult was negative. Patient continues on heparin infusion, patient may require tracheostomy and PEG in the near future . Plan to transition to p.o. anticoagulation post procedures. Neurologically the status is unchanged the patient is opens eyes spontaneously no movement of extremities upon my evaluation. Continued CPAP trials currently greater than 6 hours. 11/27: At 1000am, the patient was noted to have melena, approximated at 150 cc per RN evaluation. Heparin infusion discontinued/placed on hold at 10 AM. Stool for Hemoccult blood sent, GI was contacted and informed of the above events. Stat CT of the abdomen and pelvis with p.o. contrast ordered, results pending. Patient previously had been tolerating trickle feeds at 10 cc an hour with no residuals, after initiation of Reglan 5 mg every 8 hours yesterday. Neurologically the patient status is unchanged. Patient does have spontaneous eye opening but does not follow my commands and does not move extremities. Patient's daughter is at bedside, discussed the above events at which she was present for, she is requesting a repeat colonoscopy. I informed her that a CT of the abdomen and pelvis will be obtained, serial hemoglobin will be evaluated and if needed transfusion will be provided and gastroenterology has been contacted and will determine further management if an invasive procedure is required. Hemoglobin continues to be monitored serially, results pending for 10 AM. The patient received 1 unit packed red blood cells, and current hemoglobin trended overnight 8.9 to 8.2 this a.m., posttransfusion. 11/28: hgb continues to decline despite being off heparin. no additional GI interventions are available at this time. clearly the patient has failed anticoagulation with 2 life-threatening bleeding episodes. Although it is clear he may have additional strokes off anticoagulation, we have clear evidence that we are hurting his overall clinical care with his anticoagulation. I explained this at length to the daughter and medical decision maker. however, she insists that she would rather see him of bleeding rather than have any more strokes , and insists that "we can always keep giving him blood". I explained that blood is not without risk, and there is significant risk to anticoagulation, but she is insistent that he be given anticoagulation to prevent further strokes and she has weighed the risks and benefits after having full informed consent, insists upon us restarting the heparin drip. At her insistence, I have restarted it. In addition, I have counseled her that I do not think he will survive this hospitalization, and he will require tracheostomy for further aggressive care. She states that we are not at "day 14" on the vent, and it is not time for a tracheostomy yet. This is a second intubation and we are certainly at risk for complications from endotracheal intubation, and tracheostomy would be the most appropriate next step for this patient, but the family is refusing until WednesdayDecember 01. 11/29 Patient remains intubated, on no sedation. Afebrile. 11/30 No events overnight. Patient tolerated CPAP for most of day yesterday. Remains on Heparin drip. 12/01 Patient remains intubated tolerated CPAP for several hrs yesterday. s/p CT guided right thoracentesis with removal 500ml pleural fluid. On Heparin drip 12/02 No events overnight. Heparin drip stopped this morning for trach and PEG placement today. Afebrile. 12/03 Patient s/p trach and PEG tube placement yesterday. Had bleeding from around trach and PEG tube insertion sites Heparin drip held last night. s/p transfusion 1u PRBC yesterday Hgb 8.0 this morning. Afebrile. On no sedation. 12/04: Continues to have bruising from PEG tube insertion site. Trach site appears to have stopped. Hemoglobin 7 the same receiving 1 unit FFP and 1 PRBCs. Tube feeds of been resumed. On no sedation. 12/05: Afebrile. No further bleeding noted from the tracheostomy site. Overnight reported by the RN that the PEG tube site continues to bleed Surgicel was placed around the opening, small amount of bleeding still noted. Patient hemoglobin remained 7 patient to be transfused 1 unit PRBC's fibrinogen level pending INR within normal limits. 12/06 Patient s/p transfusion 2u PRBC yesterday Hgb 9.5 this morning from 7.2 last night. No bleeding from trach site however patient still having rectal bleeding. 12/07 No events overnight. On ventilator via trach Hgb 9.8 this morning for colonoscopy today. 12/08: seen and examined around 06:30am. no significant change in mental status. hgb 8.9 this AM. remains on heparin drip at [facility] [place]. 12/09: no improvements or changes. very deconditioned. garcia has remained in without clear indication. had 1 episode of urinary retention, but this is a clear source of infection and an additional serious infection would certainly be life-threatening. 12/10 Patient is now on TP's with 28% FIO2, Afebrile. On Heparin drip. 12/11: remains on t-piece x > 48h. no change in neuro exam. remains on heparin drip with stable hgb 7.8. Subjective: 12/12: asked to see patient again today by the hospitalist service for change in condition. I have evaluated the patient and he does not clinically appear any different than yesterday. HR actually lower than yesterday. bladder scan suggestive of 600cc retention. patient has had urinary retention before, although has also had multiple hospital acquired urinary tract infections. risk/ benefit at this time would be in favor of serial q6h straight catheterizations. remains hemodynamically stable. some emesis today and evidence of ileus. 12/31 Reconsult for resp distress Patient is 77 yo with chronic resp failure, trach/PEG tube placement, CVA transferred [place] [facility] [place] trach changes to #6 and patient was placed on mechanical ventilation. CXR showed increasing consolidation patient was given Lasix prior to arrival to [facility]. 01/01 Patient is on ventilator via trach. Afebrile. 01/02 No events overnight. On no drips, Afebrile, CPAP 15/5 with 35% FIO2 overnight. 01/03 Remained on TP breathing comfortably. CXR shows bilateral effusions. Will get CT chest. Give single dose of lasix. ID consulted and following, no fever in 24 hours 01/04: Remains unresponsive, fever trending down. Sputum culture now growing Klebsiella and ESBL E. coli. Urine culture and wound culture also growing ESBL E. coli. Chest tube placed on the right side yesterday with 1.35 L output since placement. Urine output excellent with single dose of Lasix 2.5 L in 24 hours. No fever in 24 hours. Repeat 40 mg IV Lasix 1 CCM RECONSULT NOTE: Mr. Glynn is a 77-year-old man who is known to our service. In short, he was initially admitted with possible optic neuritis versus temporal arteritis in September. Care complicated by an STEMI, multiple infections with healthcare associated pneumonia UTIs. During hospitalization he also received TPA for Stroke, MRI of the brain performed on 12/24/2017, showed infarction involving the left corpus callosum and splenium of the corpus callosum. The patient had undergone tracheostomy placement. And since last month had been on hospitalist service and off ventilator. He is currently receiving Levaquin for stenotrophomonas infection, Diflucan for candidemia. Apparently patient was noted to aspirate earlier this a.m. At 7250 AM patient was found unresponsive pulseless rhythm asystole and CPR was started. Total 3 amp of epinephrine given. Patient had a cuff less trach with evidence of aspiration, large amount of tube feeds aspirated from tracheostomy tube. This was exchanged for a 8.0 Shiley tracheostomy cuffed. With improved bag and mask ventilation and after 3 epinephrine, 1 amp of calcium, 1 amp of bicarb, patient regained ROSC Objective Vital Signs / I&O: Vital Signs 02/07/18 08:00 02/07/18 10:00 02/07/18 12:00 Temperature 97.5 F L 98.5 F Pulse Rate 100 H 98 H Respiratory Rate 28 H 15 26 H Blood Pressure 113/65 121/65 Pulse Oximetry 100 100 02/07/18 16:00 02/07/18 19:31 02/07/18 20:00 Temperature 97.6 F Pulse Rate 102 H 101 H 97 H Respiratory Rate 14 16 Blood Pressure 105/58 L Pulse Oximetry 100 100 02/07/18 22:00 02/08/18 00:00 02/08/18 04:00 Temperature 98.0 F 98.9 F Pulse Rate 102 H 90 Respiratory Rate 18 18 18 Blood Pressure 108/53 L 110/60 Pulse Oximetry 99 100 02/08/18 06:04 Temperature Pulse Rate Respiratory Rate Blood Pressure Pulse Oximetry 100 Intake & Output 02/07/18 02/08/18 02/08/18 18:59 06:59 18:59 Intake Total 200 / 200 1393 / 1393 Output Total 1601 / 1601 Balance 200 / 200 -208 / -208 Weight 80.4 kg Intake: IV 200 / 200 200 / 200 Diflucan 400 mg Premix Bag 200 200 / 200 200 / 200 ML @ 100 mls/hr IV.SIG Q24H EDE Rx#:[id number] Oral 0 / 0 Tube Feeding 780 / 780 Tube Irrigant 90 / 90 Water Bolus Amount 200 / 200 Other 123 / 123 Output: Urine 1000 / 1000 Emesis Urine Amount (Catheter) 600 / 600 Indwelling Urethral Catheter 600 / 600 Other: Date of Last Bowel Movement 02/07/18 02/08/18 # Incontinent Bowel Movements 3 Result Diagrams: 02/03/18 04:34 02/03/18 04:34 Objective Remarks: GENERAL: Patient is 77 yo encephalopathy unresponsive receiving CPR SKIN: Warm and dry. HEAD: Normocephalic. EYES: No scleral icterus. No injection NECK: Cuff left tracheostomy in place receiving bag and mask ventilation. Large amount of secretions/tube feeds CARDIOVASCULAR: Asystole receiving CPR RESPIRATORY: Breath sounds equal bilaterally, with bag and mask ventilation. Coarse wheezes and rhonchi GASTROINTESTINAL: Abdomen soft. +PEG tube placed to wall suction MUSCULOSKELETAL: No cyanosis, or edema. NEURO: Unresponsive during CODE BLUE. No withdrawal to pain after return of spontaneous circulation Assessment and Plan - Assessment and Plan Plan: Assessment: Asystole/Cardiac arrest Aspiration pneumonia Acute on chronic hypoxemic and hypercapnic resp failure Septic shock Combined shock, septic and cardiogenic Encephalopathy Healthcare associated pneumonia, stenotrophomonas Candidemia UTI with ESBL E. coli CVA Anemia s/p NSTEMI Optic neuritis Status post tracheostomy and PEG tube placement Plan: Impression: Neuro -Acute worsening of encephalopathy secondary to systolic cardiac arrest -Monitor neuro status, spoke to patient's daughter, updated at the bedside -Patient with encephalopathy, seizures, L ENID infarct. Status post systemic TPA on November 09 -On warfarin INR 2 -Neuro has followed -Neuropsychology has followed -Optic neuritis. Status post treatment with IV hydrocortisone -Encephalopathy persists CV: -Asystole/cardiac arrest seems secondary to hypoxia and hypercapnia from severe aspiration -See CPR note -Levophed to keep map above 65 -IV fluid normal saline 2 L bolus, maintenance fluid at 100 mL/h -Shock septic and cardiogenic -History of NSTEMI, check cardiac enzymes -Continue Coumadin -Echo 10/19: LV systolic function is moderately reduced, EF 40-45%. -Cardiology has followed Dr. Hernández -Jez 2mg daily and Coreg 3.125mg BID on hold -On Lipitor 80mg qhs Pulm: -Cardiac arrest seems to be secondary to respiratory arrest -Send sputum culture, PRVC/AC ventilation -DuoNeb every 6 hours scheduled and as needed -Cuff less tracheostomy tube removed and new Shiley 8 cuffed tracheostomy placed -ICU vent bundle. Pulm toilet, trach care. -Currently receiving Levaquin for stenotrophomonas, Diflucan for candidemia -Add meropenem for previous ESBL E Coli HCAP GI -Hold tube feeds, check KUB, PEG tube to suction -On Pepcid 10mg BID : -Monitor renal function, electrolytes replacement per protocol -CMP pending ID -Currently receiving Levaquin for stenotrophomonas, Diflucan for candidemia -Add meropenem for previous ESBL E. coli HCAP -Previous UTI with ESBL E. coli -Previous healthcare associated pneumonia with Klebsiella and ESBL E. coli -Send blood and sputum culture and urine culture -ID has followed Skin Sacral wound -Seen by Plastic surgery; debridement declined per patient's family -Wound care is following- apply dressings per wound management recommendations Heme: -Monitor hemoglobin closely -GI bleed; Status post EGD colonoscopy. GI has signed off, patient with healed rectal ulcers and hemorrhoids. -INR therapeutic Endo -On SSI for glycemic control GI prophylaxis- on Pepcid DVT prophylaxis- On Coumadin Patient is very critical after aspiration hypoxemic and hypercarbic respiratory failure leading to asystolic cardiac arrest. 10 minute of CPR with return of spontaneous circulation after aggressive resuscitation following CPR patient remains hypoxemic and encephalopathy. Currently on incremental doses of Levophed. Remains very critical with guarded prognosis. Family updated CCT 77 MIN excluding procedures and CPR time Code Status: Full Discussed Condition With: Dr. Peng and [facility]
--- NOTE | 2018-02-08 08:09 | P.PN ---
Subjective Interval history: c/p ARREST THIS am aspiration of gastric contents now on vent support Physical Exam Vital signs: Vital Signs 02/07/18 10:00 02/07/18 12:00 02/07/18 16:00 Temperature 98.5 F 97.6 F Pulse Rate 98 H 102 H Respiratory Rate 15 26 H 14 Blood Pressure 121/65 105/58 L Pulse Oximetry 100 100 02/07/18 19:31 02/07/18 20:00 02/07/18 22:00 Temperature Pulse Rate 101 H 97 H Respiratory Rate 16 18 Blood Pressure Pulse Oximetry 100 02/08/18 00:00 02/08/18 04:00 02/08/18 06:04 Temperature 98.0 F 98.9 F Pulse Rate 102 H 90 Respiratory Rate 18 18 Blood Pressure 108/53 L 110/60 Pulse Oximetry 99 100 100 Intake & Output 02/07/18 02/08/18 02/08/18 18:59 06:59 18:59 Intake Total 200 / 200 1393 / 1393 Output Total 1601 / 1601 Balance 200 / 200 -208 / -208 Weight 80.4 kg Intake: IV 200 / 200 200 / 200 Diflucan 400 mg Premix Bag 200 200 / 200 200 / 200 ML @ 100 mls/hr IV.SIG Q24H EDE Rx#:[id number] Oral 0 / 0 Tube Feeding 780 / 780 Tube Irrigant 90 / 90 Water Bolus Amount 200 / 200 Other 123 / 123 Output: Urine 1000 / 1000 Emesis 1 / Urine Amount (Catheter) 600 / 600 Indwelling Urethral Catheter 600 / 600 Other: Date of Last Bowel Movement 02/07/18 02/08/18 # Incontinent Bowel Movements 3 Narrative: GENERAL: Awake, INAD. SKIN: Warm and dry. +sacral decub per wound care notes. HEAD: Atraumatic. Normocephalic. EYES: Pupils equal and round. No scleral icterus. No injection or drainage. ENT: No nasal bleeding or discharge. Mucous membranes pink and moist. NECK: Trachea midline. Trach in place. CARDIOVASCULAR: Regular rate and rhythm. RESPIRATORY: No accessory muscle use. Clear to auscultation. Breath sounds equal bilaterally. GASTROINTESTINAL: Abdomen soft, non-tender, nondistended. PEG in place. GENITOURINARY: [place] in place - placed 01/21 MUSCULOSKELETAL: Extremities without clubbing, cyanosis, or edema. NEUROLOGICAL: Awake. Unable to follow commands. Nonverbal. PSYCHIATRIC: Calm. - Urinary Catheter Management Straight Cath placed during this visit: yes Urethral indwelling: Yes Reason for continuing: Acute urinary retention Insertion date: 01/21/18 Insertion time: 08:00 Indwelling Urethral Catheter Cath placed during this visit: yes, but has since been removed by the nurse Urethral indwelling: Yes Reason for continuing: Acute urinary retention Insertion date: 01/21/18 Insertion time: 16:18 Removal date: 01/20/18 Removal time: 15:15 Results - Labs CBC & Chem 7: 02/03/18 04:34 02/03/18 04:34 Laboratory Results - last 24 hr 02/07/18 02/07/18 02/07/18 07:45 11:20 17:59 PT 20.3 H INR 2.0 POC Glucose 250 H 239 H 02/07/18 02/08/18 02/08/18 20:12 00:14 05:55 PT INR POC Glucose 230 H 179 H 188 H Microbiology 01/03/18 17:00 Fluid - Pleural fluid Acid Fast Bacilli Smear - Final No acid fast bacilli seen 01/03/18 17:00 Fluid - Pleural fluid Mycobacterial Culture - Preliminary No growth in 5 weeks Assessment and Plan - Plan RESPIRATORY FAILURE POST C/P ARREST S/P cva S/P MD S/P trach ACUTE ASPIRATION plan VENT SUPPORT PULM TOILET F/U CXRAY OUTLOOK POOR
[2018-02-08 08:28] LABS: ABG Base Excess -8.8 mmol/L (-2-2); ABG PCO2 62 mmHg (38-42); ABG PO2 292 mmHg (61-120)
[2018-02-08] MEDS ORDERED: Sodium Bicarbonate 8.4% Inj 50 MEQ/50 ML Syringe IV.PUSH ONE (09:24)
--- NOTE | 2018-02-08 09:26 | P.PCN ---
Date of procedure: 02/08/18 Pre-op diagnosis: Shock Post-op diagnosis: same Procedure: Right subclavian central line Central line checklist completed, timeout completed. I wore a surgical cap, mask with protective eyewear, full gown and sterile gloves throughout the procedure. Right subclavian region was prepped using chlorhexidine scrub and draped in sterile fashion. Anesthesia was achieved over the vein using 1% lidocaine. The introducer needle was inserted into the right subclavian vein. Venous blood was withdrawn. The syringe was removed and a guidewire was advanced into the introducer needle. The introducer needle was exchanged for a dilator over the guidewire. After appropriate dilation was obtained, the dilator was exchanged over the wire for a triple lumen, 7F, antibiotic coated central venous catheter. The wire was removed and the catheter was sutured in place at 17 cm. A sterile central line dressing was placed over the catheter at the insertion site. The patient tolerated the procedure without any hemodynamic compromise. At time of procedure completion, all ports aspirated and flushed properly. Post-procedure chest x-ray is pending at this time. Surgeon: Angel Dangelo Estimated blood loss (mL): 1 Condition: critical Disposition: ICU
[2018-02-08 10:27] LABS: ABG Base Excess -1.2 mmol/L (-2-2); ABG PCO2 41 mmHg (38-42); ABG PO2 83 mmHg (61-120)
--- NOTE | 2018-02-08 10:58 | XR ---
EXAM DATE: 02/08/2018 10:47 AM EDT AGE/SEX: 77 years / Male INDICATIONS: Evaluate ileus. CLINICAL DATA: This is the patient's subsequent encounter. Patient reports that signs and symptoms h ave been present for 3 days and indicates a pain score of Nonresponsive. MEDICAL/SURGICAL HISTORY: . Chronic obstructive pulmonary disease. Cardiovascular disease. Diab etes. Coronary artery stent. tracheostomy. . COMPARISON: [facility] [place], ABDOMEN 1V KUB, 01/26/2018. . FINDINGS: Nonobstructive bowel gas pattern. Feeding tube projects over the left upper abdominal quadrant. [place] loop catheter projecting over the right upper abdominal quadrant seen previously is no longer present . Compression screw in the left. CONCLUSION: 1. Nonobstructive bowel gas pattern. 2. Gastrostomy tube in the left upper abdominal quadrant Electronically signed by: Randall Knowles MD 02/08/2018 10:56 AM EDT
[2018-02-08] MEDS: Polyethylene Glycol 3350 17 GM Packet PO SCH (10:59)
[2018-02-08] MEDS: Famotidine 20 MG Tablet PO SCH ×2 (11:01→21:27)
[2018-02-08] MEDS: Collagenase Oint 30 GM Tube TOPICAL SCH (11:01)
[2018-02-08] MEDS: Hydrocortisone Acetate 25 MG Supp RECTAL SCH ×2 (11:07→21:29)
[2018-02-08] MEDS: Insulin Glargine Inj 1,000 UNITS/10 ML Vial SQ SCH ×2 (11:08→21:30)
[2018-02-08] MEDS: Norepinephrine Inj 4 MG in Sodium Chlor 0.9% Inj 246 ML IV.SIG PRN ×3 (11:10→22:24)
--- NOTE | 2018-02-08 11:18 | XR ---
EXAM DATE: 02/08/2018 10:51 AM EDT AGE/SEX: 77 years / Male INDICATIONS: Central line placement. CLINICAL DATA: This is the patient's subsequent encounter. Patient reports that signs and symptoms h ave been present for 1 day and indicates a pain score of Nonresponsive. MEDICAL/SURGICAL HISTORY: . Chronic obstructive pulmonary disease. Cardiovascular disease. Diab etes. Coronary artery stent. tracheostomy . COMPARISON: [facility] [place], CHEST 1V SINGLE AP, 02/01/2018. . FINDINGS: Tracheostomy is stable in good position. Right subclavian central line is now present with tip overly ing right atrium. No evidence of pneumothorax or other complication of placement. There is persistent vascular congestion and hazy bilateral perihilar and basilar infiltrate or edema. Cardiac contours a re grossly unchanged. CONCLUSION: Satisfactory Central line positioning. No complication. Electronically signed by: Anotlin Dyer MD 02/08/2018 11:17 AM EDT
[2018-02-08 11:23] LABS: Mean Corpuscular Volume 88.1 fL (80.0-100.0); Mean Platelet Volume 8.4 fL (7.0-11.0); Platelet Count 229 th/mm3 (150-450); Red Blood Count 2.46 mil/mm3 (4.50-5.90); Red Cell Distribution Width 19.3 % (11.6-17.2); White Blood Count 6.9 th/mm3 (4.0-11.0)
[2018-02-08 11:25] LABS: Alanine Aminotransferase 89 U/L (12-78); Albumin 1.1 g/dL (3.4-5.0); Anion Gap 9 meq/L (5-15); Aspartate Aminotransferase 106 U/L (15-37); Calcium 7.8 mg/dL (8.5-10.1); Carbon Dioxide 24.7 meq/L (21.0-32.0); Chloride 119 meq/L (98-107); Glomerular Filtration Rate 44 mL/min (>89); Glucose,Random 215 mg/dL (74-106); Magnesium 2.7 mg/dL (1.5-2.5); Potassium 4.8 meq/L (3.5-5.1); Sodium 153 meq/L (136-145)
[2018-02-08 11:27] LABS: Alkaline Phosphatase 177 U/L (45-117); Blood Urea Nitrogen 80 mg/dL (7-18); Total Protein 5.8 g/dL (6.4-8.2)
[2018-02-08 11:30] LABS: Mean Corpuscular HGB Conc 30.6 % (32.0-36.0)
[2018-02-08 11:33] LABS: Hemoglobin 6.6 gm/dL (13.0-17.0)
[2018-02-08 11:34] LABS: Hematocrit 21.7 % (39.0-51.0)
[2018-02-08] MEDS: levoFLOXacin 750 MG Tablet PO SCH (12:35)
[2018-02-08] MEDS: Potassium Chloride Inj 20 MEQ, Sodium Bicarbonate 8.4% Inj 50 MEQ in Sod Chloride 0.9% ... IV.CONT SCH ×2 (13:18→23:52)
--- NOTE | 2018-02-08 14:41 | P.PNPAL ---
Reason for Visit Reason for visit: a. To assist with evaluation and management of symptoms including: pain, dyspnea, encephalopathy b. To assist medical decision maker(s) with: better understanding of current medical conditions; weighing benefits/burdens of medical treatment options; making medical treatment decisions. Subjective Subjective/Interval History: INTERVAL NOTE: Patient seen to reevaluate dyspnea, encephalopathy... The patient was found in cardiac arrest after apparent aspiration episode in the [employer] hours he underwent about 10 minutes of CPR/resuscitation and then had ROSC. He has been essentially unresponsive since then. He is back in [facility]. He's still being treated recently for candidemia. Family/Friend Interactions: Discussion in the hallway again with daughter Rosa Isela. I reiterated to her again that the patient would in the hospital, that these setbacks in recurrent infections would continue until comes. We talked about the option of transitioning to comfort care to allow him to naturally and peacefully, and she says she will continue to believe that God's will will take place, and she will not consider changing CODE STATUS or withdrawing life support. Advance Directives Living Will: Never completed Health Care Surrogate: Never completed Durable Power of Special Needs Babysitter: Never completed Documented care wishes:: No written documentation of health care goals/preferences. . Objective Vital Signs: Vital Signs 02/07/18 16:00 02/07/18 19:31 02/07/18 20:00 Temperature 97.6 F Pulse Rate 102 H 101 H 97 H Respiratory Rate 14 16 Blood Pressure 105/58 L Pulse Oximetry 100 100 02/07/18 22:00 02/08/18 00:00 02/08/18 04:00 Temperature 98.0 F 98.9 F Pulse Rate 102 H 90 Respiratory Rate 18 18 18 Blood Pressure 108/53 L 110/60 Pulse Oximetry 99 100 02/08/18 06:04 02/08/18 11:27 02/08/18 11:35 Temperature Pulse Rate 98 H Respiratory Rate 17 16 Blood Pressure Pulse Oximetry 100 100 Intake & Output 02/07/18 02/08/18 02/08/18 18:59 06:59 18:59 Intake Total 200 / 200 1393 / 1393 275 / 275 Output Total 1601 / 1601 Balance 200 / 200 -208 / -208 275 / 275 Weight 80.4 kg Intake: IV 200 / 200 200 / 200 275 / 275 Diflucan 400 mg Premix Bag 200 200 / 200 200 / 200 ML @ 100 mls/hr IV.SIG Q24H [facility] Rx#:[id number] Merrem Inj 1,000 MG In NS Inj 100 / 100 100 ML @ 200 mls/hr IV.SIG Q8H [facility] Rx#:[id number] Levophed-Dextrose 4 mg/250 ml 175 / 175 Drip 4 mg In 250 ml @ 0 mls/hr IV.SIG .[facility] Rx#: [id number] Oral 0 / 0 Tube Feeding 780 / 780 Tube Irrigant 90 / 90 Water Bolus Amount 200 / 200 Other 123 / 123 Output: Urine 1000 / 1000 Emesis / Urine Amount (Catheter) 600 / 600 Indwelling Urethral Catheter 600 / 600 Other: Date of Last Bowel Movement 02/07/18 02/08/18 # Incontinent Bowel Movements 3 Physical Exam: CONSTITUTIONAL/GENERAL: This is a frail elderly, ill -appearing gentleman; minimally responsive. TUBES/LINES/DRAINS: peripheral IVs; SCDs, [place] catheter; tracheostomy, peg tube SKIN: Warm to touch. ENT: Unable to assess hearing. Nose without bleeding. Mucous membranes dry. Trach collar. CARDIOVASCULAR: Irregular rhythm. No audible murmur. Tachycardic. RESPIRATORY/CHEST: Symmetric, intermittently tachypneic, diminished to auscultation. Some coarse rhonchi and scattered rales are present GASTROINTESTINAL: Abdomen soft, round. Bowel sounds present. NEUROLOGICAL: With noxious stimulation, his eyelids open and his eyes are deviated upward. I get no other response. PSYCHIATRIC: Unable to assess due to level of responsiveness. . Diagnostic Tests Laboratory: Laboratory Results - last 72 hr 02/05/18 02/06/18 02/06/18 18:38 00:56 06:21 WBC RBC Hgb Hct MCV MCH MCHC RDW Plt Count MPV PT INR Puncture Site Patient Temperature O2 Saturation ABG pH ABG pCO2 ABG pO2 ABG HCO3 ABG O2 Content ABG Base Excess ABG Methemoglobin Stepan Test Hemoglobin Carboxyhemoglobin O2 Delivery Device Vent Setting Inspired O2 Critical Value Sodium Potassium Chloride Carbon Dioxide Anion Gap BUN Creatinine Estimated GFR POC Glucose 204 H 133 H 68 Random Glucose Lactic Acid Calcium Magnesium Total Bilirubin AST ALT Alkaline Phosphatase Troponin I Total Protein Albumin Blood Type Antibody Screen MTS Gel Crossmatch 0802/06/18 02/06/18 07:30 07:31 08:21 WBC RBC Hgb Hct MCV MCH MCHC RDW Plt Count MPV PT INR Puncture Site Patient Temperature O2 Saturation ABG pH ABG pCO2 ABG pO2 ABG HCO3 ABG O2 Content ABG Base Excess ABG Methemoglobin Stepan Test Hemoglobin Carboxyhemoglobin O2 Delivery Device Vent Setting Inspired O2 Critical Value Sodium Potassium Chloride Carbon Dioxide Anion Gap BUN Creatinine Estimated GFR POC Glucose 69 74 84 Random Glucose Lactic Acid Calcium Magnesium Total Bilirubin AST ALT Alkaline Phosphatase Troponin I Total Protein Albumin Blood Type Antibody Screen MTS Gel Crossmatch 02/06/18 02/06/18 02/06/18 11:58 12:39 18:49 WBC RBC Hgb Hct MCV MCH MCHC RDW Plt Count MPV PT 20.7 H INR 2.0 Puncture Site Patient Temperature O2 Saturation ABG pH ABG pCO2 ABG pO2 ABG HCO3 ABG O2 Content ABG Base Excess ABG Methemoglobin Stepan Test Hemoglobin Carboxyhemoglobin O2 Delivery Device Vent Setting Inspired O2 Critical Value Sodium Potassium Chloride Carbon Dioxide Anion Gap BUN Creatinine Estimated GFR POC Glucose 87 95 Random Glucose Lactic Acid Calcium Magnesium Total Bilirubin AST ALT Alkaline Phosphatase Troponin I Total Protein Albumin Blood Type Antibody Screen [facility] Gel Crossmatch 02/06/18 02/07/18 02/07/18 23:14 05:26 07:45 WBC RBC Hgb Hct MCV MCH MCHC RDW Plt Count MPV PT 20.3 H INR 2.0 Puncture Site Patient Temperature O2 Saturation ABG pH ABG pCO2 ABG pO2 ABG HCO3 ABG O2 Content ABG Base Excess ABG Methemoglobin Stepan Test Hemoglobin Carboxyhemoglobin O2 Delivery Device Vent Setting Inspired O2 Critical Value Sodium Potassium Chloride Carbon Dioxide Anion Gap BUN Creatinine Estimated GFR POC Glucose 178 H 198 H Random Glucose Lactic Acid Calcium Magnesium Total Bilirubin AST ALT Alkaline Phosphatase Troponin I Total Protein Albumin Blood Type Antibody Screen [facility] Gel Crossmatch 02/07/18 02/07/18 02/07/18 11:20 17:59 20:12 WBC RBC Hgb Hct MCV MCH MCHC RDW Plt Count MPV PT INR Puncture Site Patient Temperature O2 Saturation ABG pH ABG pCO2 ABG pO2 ABG HCO3 ABG O2 Content ABG Base Excess ABG Methemoglobin Stepan Test Hemoglobin Carboxyhemoglobin O2 Delivery Device Vent Setting Inspired O2 Critical Value Sodium Potassium Chloride Carbon Dioxide Anion Gap BUN Creatinine Estimated GFR POC Glucose 250 H 239 H 230 H Random Glucose Lactic Acid Calcium Magnesium Total Bilirubin AST ALT Alkaline Phosphatase Troponin I Total Protein Albumin Blood Type Antibody Screen MTS Gel Crossmatch 02/08/18 02/08/18 02/08/18 00:14 05:55 08:05 WBC RBC Hgb Hct MCV MCH MCHC RDW Plt Count MPV PT INR Puncture Site Right radial Patient Temperature 98.6 O2 Saturation 97 ABG pH 7.12 L* ABG pCO2 62 H* ABG pO2 292 H ABG HCO3 19 L ABG O2 Content 12.9 ABG Base Excess -8.8 L ABG Methemoglobin 1.0 Stepan Test Present Hemoglobin 8.9 L Carboxyhemoglobin 1.3 O2 Delivery Device Ventilator Vent Setting Ac14/550/+8 Inspired O2 100 Critical Value Yes Sodium Potassium Chloride Carbon Dioxide Anion Gap BUN Creatinine Estimated GFR POC Glucose 179 H 188 H Random Glucose Lactic Acid Calcium Magnesium Total Bilirubin AST ALT Alkaline Phosphatase Troponin I Total Protein Albumin Blood Type Antibody Screen [facility] Gel Crossmatch 02/08/18 02/08/18 02/08/18 10:15 10:24 10:24 WBC 6.9 RBC 2.46 L Hgb 6.6 L* Hct 21.7 L MCV 88.1 MCH 27.0 MCHC 30.6 L RDW 19.3 H Plt Count 229 MPV 8.4 PT INR Puncture Site Right brachial Patient Temperature 98.6 O2 Saturation 93 ABG pH 7.38 ABG pCO2 41 ABG pO2 83 ABG HCO3 23 ABG O2 Content 12.9 ABG Base Excess -1.2 ABG Methemoglobin 1.0 Stepan Test Present Hemoglobin 9.8 L Carboxyhemoglobin 1.8 O2 Delivery Device Ventilator Vent Setting Substance Abuse Nurse Inspired O2 50 Critical Value No Sodium 153 H Potassium 4.8 Chloride 119 H Carbon Dioxide 24.7 Anion Gap 9 BUN 80 H Creatinine 1.54 H Estimated GFR 44 L POC Glucose Random Glucose 215 H Lactic Acid Calcium 7.8 L Magnesium 2.7 H Total Bilirubin 0.3 AST 106 H ALT 89 H Alkaline Phosphatase 177 H Troponin I Total Protein 5.8 L Albumin 1.1 L Blood Type Antibody Screen MTS Gel Crossmatch 02/08/18 02/08/18 02/08/18 10:24 12:00 12:07 WBC RBC Hgb Hct MCV MCH MCHC RDW Plt Count MPV PT INR Puncture Site Patient Temperature O2 Saturation ABG pH ABG pCO2 ABG pO2 ABG HCO3 ABG O2 Content ABG Base Excess ABG Methemoglobin Stepan Test Hemoglobin Carboxyhemoglobin O2 Delivery Device Vent Setting Inspired O2 Critical Value Sodium Potassium Chloride Carbon Dioxide Anion Gap BUN Creatinine Estimated GFR POC Glucose Random Glucose Lactic Acid 3.1 H Calcium Magnesium Total Bilirubin AST ALT Alkaline Phosphatase Troponin I 0.05 Total Protein Albumin Blood Type A Positive Antibody Screen Negative MTS Gel Crossmatch See Detail Result Diagrams: 02/08/18 10:24 02/08/18 10:24 Microbiology: Microbiology 01/04/18 12:45 Acid Fast Bacilli Smear - Final Fluid - Pleural fluid No acid fast bacilli seen Mycobacterial Culture - Preliminary No growth in 5 weeks 01/03/18 17:00 Acid Fast Bacilli Smear - Final Fluid - Pleural fluid No acid fast bacilli seen Mycobacterial Culture - Preliminary No growth in 5 weeks Procedures: * 11/09/17 - Intubation * 11/11/17 - Extubated * 11/18/17 - Re-intubated * Tracheostomy * PEG tube * Bilateral chest tubes for pleural effusions 01/14/18 Assessment and Plan - Disease Oriented Problem List (1) Aspiration pneumonia Comment: Recurrent 02/08/18, with cardiac arrest (2) Cardiac arrest Comment: 02/08/18 (3) CVA (cerebral vascular accident) (4) Diabetes (5) Anemia (6) Hypoalbuminemia (7) Wound of sacral region (8) Fungemia (9) Carotid stenosis (10) Debility Pertinent Non-Medical Issues: Psychosocial: Patient was born and raised in [place], he lives in [place]. Primary language is Irish. Patient is , retired, has 2 daughters. Highest level of education is high school. Spiritual: Coptic Taoist. Spirituality and prayer have been very important for the patient's family. Legal: No known advanced directives have been completed. Ethical issues impacting care: Patient incapacitated for medical decision- making. Important Contacts: Family providing son-in-law's contact information: Avtar Ashraf . -pending information Daughter Alexandra -pending contact information Daughter Lanette -not very forthcoming with contact info. State "I am always here." Prognosis: Patient with a complicated prolonged hospitalization to include bacteremia, candidemia, NSTEMI, UTI, aspiration pneumonia, GI bleed, acute stroke, cardiac arrest 02/08/18, seizures. He remains encephalopathic, and is profoundly deconditioned and hypoalbuminemic. Should he survive the hospitalization for additional weeks or months, he will remain very vulnerable to major setbacks due to his overall frailty and nutritional status. He will in the hospital. Patient is certainly eligible for hospice services at such time that the medical decision makers are ready to opt for comfort oriented care. . Code Status: Full Code Plan: ==CODE STATUS: FULL CODE ==HEALTHCARE DECISION-MAKING: . Patient incapacitated for medical decision- making secondary to clinical condition. He will not recover that capacity. has indicated she wants her daughters to manage medical decisions especially Lanette. does not want to participate in medical decision making. ==GOALS OF CARE: Family expresses aggressive goals. Family continues to pray for a miracle. ==SYMPTOMS: = * Debility: Multifactorial secondary to multiple acute on chronic illnesses and prolonged hospitalization, severe hypoalbuminemia. Remains critically ill. * Encephalopathy probably multi-factorial -- stroke, cardiac arrest with CPR, infection, medications, prolonged hospitalization, etc. * Pain: Secondary to lines, prolonged bedbound status, wounds, catheter, vascular access lines, etc. No further recommendations at this time. * Dyspnea: Managed with mechanical ventilation. Recurrent aspiration 02/08/18 == Disposition -- Post-acute care arrangements will likely be difficult given his foreign citizenship and lack of payor source. Should he decline and goals become comfort oriented, he would certainly be a hospice candidate and would be accepted as a linsey case. ==Palliative care will continue to follow to assist with symptom management and to further clarify goals of medical treatment as the clinical course evolves. . . Time Spent Total Floor Time (mins): 44 Face to Face Time (mins): 19 >50% Time in Counseling or Coordination of Care: Yes (d/w RN and with Dr. Dangelo) Attestation Attestation: To help prompt me to consider important information that might be impacting today's encounter and assessment, information from prior notes written by myself or my colleagues may have been "brought forward" into today's note. My signature on this note, however, is an attestation that I personally performed the exam, history, and/or decision-making noted today, and, unless otherwise indicated, the interactions with patient, family, and staff as well as the review of records all occurred today. I also attest that the listed assessment and stated plan reflect my best clinical judgment today based on the combination of historical information, prior notes, and today's exam/ interactions. When time spent is documented, it refers only to time spent today by the signer, or if indicated, combined time spent today by collaborating physician/nurse practitioner.
--- NOTE | 2018-02-08 15:32 | P.DIET ---
Nutritional Evaluation Type of nutrition evaluation: follow-up Nutrition consult regarding: Tube Feeding Nutrition screening: Pressure Injury, [facility] [place] (01/26 reevaluate tube feedings as patient is vomiting) Screening comments: Transferred to [facility] s/p cardiac arrest and aspiration. Objective - Diagnosis Optic Neuritis - Objective % IBW: 114 (YNS=007#) Body Weight Used for Calculations: Actual (79.6kg) Energy Needs - Lower Range (kCal/kg): 30 Energy Needs - Upper Range (kCal/kg): 35 Lower Limit kCal/kg (kCals): 2,388 Upper Limit kCal/kg (kCals): 2,786 Lower Limit Protein Factor (Grams per Kg): 1.3 Upper Limit Protein Factor (Grams per Kg): 1.6 Lower Protein Needs (Protein): 103 Upper Protein Needs (Protein): 127 Fluid Factor (ml/kg): 30 Estimated Fluid Needs (ml): 2,388 Dietitian Reviewed in Medical Record: Curent medications, Intake & Output, Labs , Tube feeding, Wound/DTI Diet Order: TF Only Wound Care Note: WOCN dated 01/27: sacrum pressure injury-unstageable Objective Comments: Labs: Na 153, BUN/creat 80/1.54, Est GFR 44, glu 215, LFTs elev CBW = 80.4 kg Assessment Assessment: Pt with change in status. Transferred to [facility] this morning d/t cardiac arrest and aspiration. TF is now on hold and PEG is to suction. When it is appropriate and TF is resumed, recommend Vital 1.5 @ 65 mls/hr to provide 2340 kcals, 105 gms protein and 1192 mls of free water. Labs, wts and clinical course reviewed. RD following. Recommendations: Continue Vital 1.5 @ 65mls/hr when able Dietitian to Monitor: Lab values, Glucose level, Intake & Output, Tube feeding tolerance, Weight change, Wound/skin status, Medical course
--- NOTE | 2018-02-08 16:05 | CT ---
EXAM DATE: 02/08/2018 3:58 PM EDT AGE/SEX: 77 years / Male INDICATIONS: Altered mental status. CLINICAL DATA: This is the patient's initial encounter. Patient reports that signs and symptoms have been present for 1 day and indicates a pain score of Nonresponsive. MEDICAL/SURGICAL HISTORY: Non-responsive. Non-responsive. RADIATION DOSE: 37.19 CTDI (mGy) [place] [facility] [place]. . TECHNIQUE: CT of the head without contrast. Using automated exposure control and adjustment of the mA and/or kV according to patient size, radiation dose was kept as low as reasonably achievable to ob tain optimal diagnostic quality images. DICOM format image data is available electronically for revi ew and comparison. FINDINGS: Cerebrum: Prominent diffuse cerebral atrophy. The ventricles are normal for degree of atrophy. Moder ate periventricular white matter hypodensities. Nonspecific basal ganglia calcifications. No evidence of midline shift, mass lesion, hemorrhage or acute infarction. No extraaxial fluid collections are seen. Posterior Fossa: The cerebellum and brainstem are intact. The 4th ventricle is midline. The cerebe llopontine angle is unremarkable. Extracranial: The visualized portion of the orbits is intact. Skull: The calvaria is intact. No evidence of skull fracture. CONCLUSION: 1. Stable prominent senescent changes with mild to moderate periventricular ischemic white matter de myelination. 2. No acute intracranial abnormality.. Electronically signed by: Coleman Alfaro MD 02/08/2018 4:03 PM EDT
--- NOTE | 2018-02-08 19:11 | P.PNID ---
Subjective Remarks: pt had massive aspiration this am sp code - asystoly intubated back on vent no fever RN reports suctioning feculent appearing material and tube feedings Antibiotics: diflucan meropenem levaquine Lines: Lines ok Past Medical History: reviewed Allergies/Adverse Reactions: Allergies No Known Allergies Allergy (Verified 12/25/17 11:22) Objective Vital Signs 02/07/18 19:31 02/07/18 20:00 02/07/18 22:00 Temperature Pulse Rate 101 H 97 H Respiratory Rate 16 18 Blood Pressure Pulse Oximetry 100 02/08/18 00:00 02/08/18 04:00 02/08/18 06:04 Temperature 98.0 F 98.9 F Pulse Rate 102 H 90 Respiratory Rate 18 18 Blood Pressure 108/53 L 110/60 Pulse Oximetry 99 100 100 02/08/18 08:00 02/08/18 08:45 02/08/18 09:00 Temperature 97.8 F Pulse Rate 78 Respiratory Rate 16 Blood Pressure 64/40 L 71/47 L 107/54 L Pulse Oximetry 100 02/08/18 11:27 02/08/18 11:35 02/08/18 12:00 Temperature 98 F Pulse Rate 98 H 100 H Respiratory Rate 17 16 16 Blood Pressure 116/64 Pulse Oximetry 100 100 02/08/18 15:30 02/08/18 15:33 02/08/18 16:00 Temperature 99 F 99 F Pulse Rate 87 100 H Respiratory Rate 16 16 Blood Pressure 123/62 127/64 Pulse Oximetry 100 100 02/08/18 16:17 02/08/18 16:37 02/08/18 17:08 Temperature 99 F 99 F Pulse Rate 106 H 102 H 101 H Respiratory Rate 18 16 16 Blood Pressure 124/71 118/64 Pulse Oximetry 100 100 100 02/08/18 17:24 02/08/18 18:20 Temperature 98.8 F 98.8 F Pulse Rate 101 H 99 H Respiratory Rate 18 22 Blood Pressure 121/66 118/65 Pulse Oximetry 100 100 Intake & Output 02/08/18 02/08/18 02/09/18 06:59 18:59 06:59 Intake Total 1393 / 1393 1215 / 1215 Output Total 1601 / 1601 451 / 451 Balance -208 / -208 764 / 764 Weight 80.4 kg Intake: IV 200 / 200 525 / 525 Diflucan 400 mg Premix Bag 200 200 / 200 ML @ 100 mls/hr IV.SIG Q24H EDE Rx#:[id number] Merrem Inj 1,000 MG In NS Inj 100 / 100 100 ML @ 200 mls/hr IV.SIG Q8H EDE Rx#:[id number] Levophed Inj 4 MG In NS Inj 246 250 / 250 ML @ 2 MCG/MIN 7.5 mls/hr IV. SIG TITRATE PRN Rx#:[id number] Levophed-Dextrose 4 mg/250 ml 175 / 175 Drip 4 mg In 250 ml @ 0 mls/hr IV.SIG .STK-MED ONE Rx#: [id number] Oral 0 / 0 0 / 0 Tube Feeding 780 / 780 Tube Irrigant 90 / 90 90 / 90 Water Bolus Amount 200 / 200 200 / 200 Other 123 / 123 Intake (Blood Product) Amt 400 / 400 Rbc As-3 Leukoreduced Unit 0 / 0 [id number] Rbc As-3 Leukoreduced Unit 400 / 400 [id number] Output: Urine 1000 / 1000 450 / 450 Emesis 1 / Urine Amount (Catheter) 600 / 600 Indwelling Urethral Catheter 600 / 600 Other: Date of Last Bowel Movement 02/08/18 02/08/18 # Incontinent Bowel Movements 3 1 02/08/18 12:00 Sputum - Endotracheal Gram Stain - Final 02/08/18 12:00 Sputum - Endotracheal Sputum Culture - Pending 01/04/18 12:45 Fluid - Pleural fluid Acid Fast Bacilli Smear - Final No acid fast bacilli seen 01/04/18 12:45 Fluid - Pleural fluid Mycobacterial Culture - Preliminary No growth in 5 weeks 02/08/18 13:15 Blood - Peripheral Blood Fungal Culture - Pending 02/08/18 13:15 Blood - Peripheral Blood Fungal Culture - Pending 02/08/18 13:10 Blood - Peripheral Aerobic Blood Culture - Pending 02/08/18 13:10 Blood - Peripheral Anaerobic Blood Culture - Pending 02/08/18 12:00 Catheterized Urine Urine Culture - Pending 02/08/18 10:24 Blood - Peripheral Aerobic Blood Culture - Pending 02/08/18 10:24 Blood - Peripheral Anaerobic Blood Culture - Pending 01/03/18 17:00 Fluid - Pleural fluid Acid Fast Bacilli Smear - Final No acid fast bacilli seen 01/03/18 17:00 Fluid - Pleural fluid Mycobacterial Culture - Preliminary No growth in 5 weeks Lab - Hematology Results 02/08/18 10:24 WBC 6.9 RBC 2.46 L Hgb 6.6 L* Hct 21.7 L MCV 88.1 MCH 27.0 MCHC 30.6 L RDW 19.3 H Plt Count 229 MPV 8.4 Lab - Chemistry Results 02/06/18 02/07/18 02/07/18 23:14 05:26 11:20 Sodium Potassium Chloride Carbon Dioxide Anion Gap BUN Creatinine Estimated GFR POC Glucose 178 H 198 H 250 H Random Glucose Lactic Acid Calcium Magnesium Total Bilirubin AST ALT Alkaline Phosphatase Troponin I Total Protein Albumin 02/07/18 02/07/18 02/08/18 17:59 20:12 00:14 Sodium Potassium Chloride Carbon Dioxide Anion Gap BUN Creatinine Estimated GFR POC Glucose 239 H 230 H 179 H Random Glucose Lactic Acid Calcium Magnesium Total Bilirubin AST ALT Alkaline Phosphatase Troponin I Total Protein Albumin 02/08/18 02/08/18 02/08/18 05:55 10:24 10:24 Sodium 153 H Potassium 4.8 Chloride 119 H Carbon Dioxide 24.7 Anion Gap 9 BUN 80 H Creatinine 1.54 H Estimated GFR 44 L POC Glucose 188 H Random Glucose 215 H Lactic Acid Calcium 7.8 L Magnesium 2.7 H Total Bilirubin 0.3 AST 106 H ALT 89 H Alkaline Phosphatase 177 H Troponin I 0.05 Total Protein 5.8 L Albumin 1.1 L 02/08/18 02/08/18 12:00 18:10 Sodium Potassium Chloride Carbon Dioxide Anion Gap BUN Creatinine Estimated GFR POC Glucose 130 H Random Glucose Lactic Acid 3.1 H Calcium Magnesium Total Bilirubin AST ALT Alkaline Phosphatase Troponin I Total Protein Albumin Imaging: ITS Impressions Head MRI 01/02/18 00:00 CONCLUSION: 1. 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 2. Cerebral atrophy and chronic ischemic small vessel vasculopathy. Chest CT 01/03/18 00:00 CONCLUSION: 1. Large bilateral pleural effusions occupying more than half of the right and left hemithorax. Abdomen/Pelvis CT 01/13/18 00:00 CONCLUSION: 1. Small bilateral pleural effusions and basilar infiltrates with bilateral chest tubes in place. 2. No evidence of ascites or bowel dilatation. Abdomen/Bladder Ultrasound 01/15/18 00:00 CONCLUSION: 1. Negative renal sonogram. Abdomen X-Ray 02/08/18 00:00 CONCLUSION: 1. Nonobstructive bowel gas pattern. 2. Gastrostomy tube in the left upper abdominal quadrant Head CT 02/08/18 00:00 CONCLUSION: 1. Stable prominent senescent changes with mild to moderate periventricular ischemic white matter demyelination. 2. No acute intracranial abnormality.. Chest X-Ray 02/08/18 07:51 CONCLUSION: Satisfactory Central line positioning. No complication. Physical Exam: GENERAL: unresponsive On vent SKIN: Warm and dry. No rash HEAD: Normocephalic. EYES: No scleral icterus. No injection or drainage. NECK: Supple, trachea midline. + trach in place with large amount of drainage CARDIOVASCULAR: RRR. No murmurs, rubs, gallops RESPIRATORY: Breath sounds equal bilaterally. No accessory muscle use. Scattereed rhonchi GASTROINTESTINAL: Abdomen soft, non-tender, nondistended. +PEG tube in place MUSCULOSKELETAL: No cyanosis, less prominent edema. GUl; garcia in place with yellow urine Neuro: comatous no eye contact, not follws commands non vernbal Assessment and Plan - Plan Sacral decub with possible underlying infection, osteomyelitis. Prior h/o ESBL E.coli on 10/24/2017. Possible HCAP GNR UTI ? ESBL given h/o ESBL. 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 Encephalopathy: strokes in hospital, optic neuritis on presentation. Fungemia, C. tropicalis Persistent fever Gram negative UTI: PSAE and ESBL + Kleb PNA Acute VDRF Encepholapathy sp code New issue aspiration, likely aspiration PNA Recs: cont Fluconazol con levaquin cont meropenem fu sputum clx fu bl clx dw Dr Dangelo
[2018-02-08 22:22] LABS: Hematocrit 27.8 % (39.0-51.0); Hemoglobin 8.9 gm/dL (13.0-17.0)
[2018-02-09] MEDS: Insulin NovoLIN Regular Correctional Sugar Inj SQ SCH ×5 (01:04→23:15)
[2018-02-09] MEDS: Collagenase Oint 30 GM Tube TOPICAL SCH ×2 (04:52→09:30)
[2018-02-09 06:17] LABS: INR 2.7 Ratio; Prothrombin Time 26.9 sec (9.8-11.6)
--- NOTE | 2018-02-09 07:29 | P.PNCC ---
Subjective Subjective Remarks/Hospital Course: This is a 77-year-old male who initially presented with vision changes and concern for optic neuritis versus temporal arteritis. His initial presentation was on 10/14. His hospital course has been complicated by an NSTEMI with troponins which peaked at 10, ESBL E. coli urinary tract infection, rectal bleeding suspected from bleeding hemorrhoids, acute anemia secondary to blood loss with hemoglobin started around 14 and is trended down to 9.7 this morning. On his initial MRA he was found to have significant atherosclerotic cerebrovascular disease in all vascular territories. Today, he had an acute mental status change and was obtunded. Rapid response and stroke alert was called. His initial NIH stroke scale was 22. Dr. goldstein had conversations with Dr. Ulloa and neurology as well as Dr. sierra with gastroenterology. GI feels comfortable with giving thrombolytics and neurology feels strongly that this patient would benefit from systemic IV TPA therapy. I evaluated the patient on arrival to the intensive care unit. The patient is arousable, but very somnolent. He is Serbian speaking, and it is very difficult to ascertain whether or not he can follow commands. He does move all extremities spontaneously, although it appears that his left side is weaker than his right. He has noted facial droop. CT head is negative for acute hemorrhage. CTA head neck is significant for the same multivessel cerebrovascular disease that was present on admission. Given the high-risk nature of the stroke as well as his acute anemia this hospitalization, in preparation for giving emergent IV systemic TPA, I placed an arterial line as well as a large-bore peripheral IV so that we could draw serial labs, monitor his hemoglobin, and give blood products if necessary. I also had an additional discussion with the family where I reconfirmed that their goals were aggressive and they fully understood the significant risk of life-threatening hemorrhage associated with systemic TPA in a patient with new anemia and suspected GI bleeding. The family expressed understanding of his condition and understanding of the heightened risk of life-threatening bleeding, but still urged that we needed to get TPA. Immediately after giving IV TPA, patient had a tonic clonic seizure (witnessed on EEG) and became obtunded with acute hypoxic and hypercarbic respiratory failure and was emergently intubated (see separate procedure note for details). 11/10: remains intubated. encephalopathy persists. hgb stable s/p TPA. ~350cc bloody OG tube output, but this is slowing down. 11/11: more awake. on SBT. follows commands. 11/12: remains extubated. off vasopressors. no changes in mental status. 11/18/17 CCM Reconsult Note Patient was transferred to ICU today after a Halicat was called for AMS, hypoxia , high fever. Apparently patient was lethargic since a.m. in the last hour had been unresponsive and hence Halicat was called. Patient had a fever of 101.4 in a.m., T-max is 101.6. I immediately evaluated the patient in the ICU. Patient is completely unresponsive, oxygen saturation 87% on 4 L nasal cannula. Hypopneic. No response to deep pain. Patient was confirmed to be a full code and I proceeded with endotracheal intubation place him on mechanical ventilation as patient was not protecting airway. More history was obtained from discussion with ID Dr. Jalloh. She indicated patient had been increasingly lethargic with fever and also had urinary retention.She has discontinued Ertapenem, and started on meropenem, vancomycin and micafungin. Cultures have been sent and are pending now. Source of sepsis appears to be aspiration pneumonia versus UTI. Repeat UA and panculture pending at this time. Patient was borderline hypotensive prior to intubation and I have started on Levophed to avoid hypotension post intubation. Receiving 1 L normal saline bolus now, give additional fluid bolus if patient requires continued Levophed will place central line 11/19: remains intubated. holding aggrenox for possible thoracentesis today, but family hesitant to consent with concerns over bleeding risk. Cr remains elevated. discussion with Dr. Bernal, unlikely to benefit currently from draining effusion, so at his recommendation, will proceed with attempted weaning from mechanical ventilation and treat effusion conservatively. 11/20: Overnight /early this a.m. ,the patient was noted to have large amount of rectal bleeding. Aggrenox held since 11/18, 2/2 reintubation. Type and screen ordered. Serial H&H currently be performed. Hemodynamically stable. GI has been reconsulted. Protonix previously given PRN, will schedule BID. Patient was reintubated emergently 11/18, plan for continue CPAP trials. Tube feedings until evaluation by GI. ASA placed on hold , in the setting of GI bleeding. 11/21: EGD and colonoscopy performed yesterday. Patient was noted to be constipated ,disimpacted per GI. Patient noted to have hemorrhoids which was clipped. No further bleeding throughout the night. Chest x-ray showed improvement. CPAP trials initiated this a.m.. ASA 81 mg resumed. 11/22: Patient tolerated CPAP trials approximately 13 hours yesterday. Initiation of tube feeds per GI yesterday, no residuals. This am , family concerned patient not responsive. CT brain , ammonia level and EEG pending. Neurology has been reconsulted. Upon my entering the room, this afternoon, the patient was awake, tracking and squeezing my hand upon commands, with right hand. The patient received 1 u PRBC for Hgb 7.2. Post transfusion CBC pending. Plan for quantification of pleural fluid for possible thoracentesis in a.m.. 11/23: No acute events overnight. Patient remains off all sedation. Noted spontaneous eye opening, tracking following commands squeezing hands right greater than left. Neurology following plan for MRI this a.m., repeat EEG pending. Hemoglobin stable this a.m.. Chest x-ray slight improvement, plan for quantification via ultrasound of pleural effusions for possible thoracentesis today. 3 failed attempts at CPAP trials yesterday. 1548-MRI resulted findings consistent of small areas of acute cortical infarct, new since 11/09/2017. I contacted neurology, Dr. Geronimo informed of results. After Dr. Palma's review of imaging and records, it was determined most likely cardioembolic since is affecting both sides and failure with aspirin and Persantine. Ischemic stroke heparin protocol initiated. Careful review secondary to patient history of GI bleed 11/20, thought to be emanating from hemorrhoid ,however due to poor suboptimal prep, they unable to have optimal visualization per Dr. Jones. 11/24: Late entry note. Patient seen and evaluated 614. No acute events overnight. Patient continues on heparin infusion no active signs of bleeding. PTT within therapeutic range. The patient is less responsive this a.m., spontaneous eye opening, not following my commands. Not moving his extremities spontaneously for me as previously performed yesterday. tube feeds reinitiated. Chest x-ray showed further improvement in aeration of lungs the patient continues on FiO2 of 0.35. Plan for CPAP trials today. 11/25: No acute events overnight. Neurological status unchanged. Spontaneous eye opening patient continues not following any commands. Dr. Geronimo at bedside evaluating patient, no change. Patient tolerated CPAP trials approximately 12 hours yesterday. Tolerating tube feeds. Chest x-ray remains unchanged from yesterday. Hemoccult stool negative. Heparin infusion continued. family at bedside. 11/26: Late entry note. Patient seen at 1240pm. Last night the patient was noted to be continuously hyperglycemic. Levemir added to medication regimen 10 mg/day hemoglobin dropped 2 g/dL in 2 days hemoglobin now 7.7, patient to be transfused 1 unit packed red blood. No obvious signs of bleeding Hemoccult was negative. Patient continues on heparin infusion, patient may require tracheostomy and PEG in the near future . Plan to transition to p.o. anticoagulation post procedures. Neurologically the status is unchanged the patient is opens eyes spontaneously no movement of extremities upon my evaluation. Continued CPAP trials currently greater than 6 hours. 11/27: At 1000am, the patient was noted to have melena, approximated at 150 cc per RN evaluation. Heparin infusion discontinued/placed on hold at 10 AM. Stool for Hemoccult blood sent, GI was contacted and informed of the above events. Stat CT of the abdomen and pelvis with p.o. contrast ordered, results pending. Patient previously had been tolerating trickle feeds at 10 cc an hour with no residuals, after initiation of Reglan 5 mg every 8 hours yesterday. Neurologically the patient status is unchanged. Patient does have spontaneous eye opening but does not follow my commands and does not move extremities. Patient's daughter is at bedside, discussed the above events at which she was present for, she is requesting a repeat colonoscopy. I informed her that a CT of the abdomen and pelvis will be obtained, serial hemoglobin will be evaluated and if needed transfusion will be provided and gastroenterology has been contacted and will determine further management if an invasive procedure is required. Hemoglobin continues to be monitored serially, results pending for 10 AM. The patient received 1 unit packed red blood cells, and current hemoglobin trended overnight 8.9 to 8.2 this a.m., posttransfusion. 11/28: hgb continues to decline despite being off heparin. no additional GI interventions are available at this time. clearly the patient has failed anticoagulation with 2 life-threatening bleeding episodes. Although it is clear he may have additional strokes off anticoagulation, we have clear evidence that we are hurting his overall clinical care with his anticoagulation. I explained this at length to the daughter and medical decision maker. however, she insists that she would rather see him of bleeding rather than have any more strokes , and insists that "we can always keep giving him blood". I explained that blood is not without risk, and there is significant risk to anticoagulation, but she is insistent that he be given anticoagulation to prevent further strokes and she has weighed the risks and benefits after having full informed consent, insists upon us restarting the heparin drip. At her insistence, I have restarted it. In addition, I have counseled her that I do not think he will survive this hospitalization, and he will require tracheostomy for further aggressive care. She states that we are not at "day 14" on the vent, and it is not time for a tracheostomy yet. This is a second intubation and we are certainly at risk for complications from endotracheal intubation, and tracheostomy would be the most appropriate next step for this patient, but the family is refusing until WednesdayDecember 01. 11/29 Patient remains intubated, on no sedation. Afebrile. 11/30 No events overnight. Patient tolerated CPAP for most of day yesterday. Remains on Heparin drip. 12/01 Patient remains intubated tolerated CPAP for several hrs yesterday. s/p CT guided right thoracentesis with removal 500ml pleural fluid. On Heparin drip 12/02 No events overnight. Heparin drip stopped this morning for trach and PEG placement today. Afebrile. 12/03 Patient s/p trach and PEG tube placement yesterday. Had bleeding from around trach and PEG tube insertion sites Heparin drip held last night. s/p transfusion 1u PRBC yesterday Hgb 8.0 this morning. Afebrile. On no sedation. 12/04: Continues to have bruising from PEG tube insertion site. Trach site appears to have stopped. Hemoglobin 7 the same receiving 1 unit FFP and 1 PRBCs. Tube feeds of been resumed. On no sedation. 12/05: Afebrile. No further bleeding noted from the tracheostomy site. Overnight reported by the RN that the PEG tube site continues to bleed Surgicel was placed around the opening, small amount of bleeding still noted. Patient hemoglobin remained 7 patient to be transfused 1 unit PRBC's fibrinogen level pending INR within normal limits. 12/06 Patient s/p transfusion 2u PRBC yesterday Hgb 9.5 this morning from 7.2 last night. No bleeding from trach site however patient still having rectal bleeding. 12/07 No events overnight. On ventilator via trach Hgb 9.8 this morning for colonoscopy today. 12/08: seen and examined around 06:30am. no significant change in mental status. hgb 8.9 this AM. remains on heparin drip at [facility] [place]. 12/09: no improvements or changes. very deconditioned. garcia has remained in without clear indication. had 1 episode of urinary retention, but this is a clear source of infection and an additional serious infection would certainly be life-threatening. 12/10 Patient is now on TP's with 28% FIO2, Afebrile. On Heparin drip. 12/11: remains on t-piece x > 48h. no change in neuro exam. remains on heparin drip with stable hgb 7.8. Subjective: 12/12: asked to see patient again today by the hospitalist service for change in condition. I have evaluated the patient and he does not clinically appear any different than yesterday. HR actually lower than yesterday. bladder scan suggestive of 600cc retention. patient has had urinary retention before, although has also had multiple hospital acquired urinary tract infections. risk/ benefit at this time would be in favor of serial q6h straight catheterizations. remains hemodynamically stable. some emesis today and evidence of ileus. 12/31 Reconsult for resp distress Patient is 77 yo with chronic resp failure, trach/PEG tube placement, CVA transferred to [facility] [place] [place] for resp distress trach changes to #6 and patient was placed on mechanical ventilation. CXR showed increasing consolidation patient was given Lasix prior to arrival to [facility] [place] [place]. 01/01 Patient is on ventilator via trach. Afebrile. 01/02 No events overnight. On no drips, Afebrile, CPAP 15/5 with 35% FIO2 overnight. 01/03 Remained on TP breathing comfortably. CXR shows bilateral effusions. Will get CT chest. Give single dose of lasix. ID consulted and following, no fever in 24 hours 01/04: Remains unresponsive, fever trending down. Sputum culture now growing Klebsiella and ESBL E. coli. Urine culture and wound culture also growing ESBL E. coli. Chest tube placed on the right side yesterday with 1.35 L output since placement. Urine output excellent with single dose of Lasix 2.5 L in 24 hours. No fever in 24 hours. Repeat 40 mg IV Lasix [facility] 02/08/18: Mr. Glynn is a 77-year-old man who is known to our service. In short, he was initially admitted with possible optic neuritis versus temporal arteritis in September. Care complicated by an STEMI, multiple infections with healthcare associated pneumonia UTIs. During hospitalization he also received TPA for Stroke, MRI of the brain performed on 12/24/2017, showed infarction involving the left corpus callosum and splenium of the corpus callosum. The patient had undergone tracheostomy placement. And since last month had been on hospitalist service and off ventilator. He is currently receiving Levaquin for stenotrophomonas infection, Diflucan for candidemia. Apparently patient was noted to aspirate earlier this a.m. At 7250 AM patient was found unresponsive pulseless rhythm asystole and CPR was started. Total 3 amp of epinephrine given. Patient had a cuff less trach with evidence of aspiration, large amount of tube feeds aspirated from tracheostomy tube. This was exchanged for a 8.0 Shiley tracheostomy cuffed. With improved bag and mask ventilation and after 3 epinephrine, 1 amp of calcium, 1 amp of bicarb, patient regained ROSC SUBJ 02/09/18: Remains very critical not on any sedation he is unresponsive eyes are spontaneously open but no tracking. Very slight withdrawal to pain on the upper extremities. CT of the head unremarkable. Currently borderline hypotensive off pressors. Received 2 units of PRBC for hemoglobin 6.6 yesterday. Prognosis remained poor. Neurology consulted per family request Objective Vital Signs / I&O: Vital Signs 02/08/18 08:00 02/08/18 08:45 02/08/18 09:00 Temperature 97.8 F Pulse Rate 78 Respiratory Rate 16 Blood Pressure 64/40 L 71/47 L 107/54 L Pulse Oximetry 100 02/08/18 11:27 02/08/18 11:35 02/08/18 12:00 Temperature 98 F Pulse Rate 98 H 100 H Respiratory Rate 17 16 16 Blood Pressure 116/64 Pulse Oximetry 100 100 02/08/18 15:30 08/14/18 15:33 02/08/18 16:00 Temperature 99 F 99 F Pulse Rate 87 100 H Respiratory Rate 16 16 Blood Pressure 123/62 127/64 Pulse Oximetry 100 100 02/08/18 16:17 02/08/18 16:37 02/08/18 17:08 Temperature 99 F 99 F Pulse Rate 106 H 102 H 101 H Respiratory Rate 18 16 16 Blood Pressure 124/71 118/64 Pulse Oximetry 100 100 100 02/08/18 17:24 02/08/18 18:20 02/08/18 20:00 Temperature 98.8 F 98.8 F 99.3 F Pulse Rate 101 H 99 H 100 H Respiratory Rate 18 22 18 Blood Pressure 121/66 118/65 119/63 Pulse Oximetry 100 100 100 02/08/18 20:18 02/08/18 23:49 02/09/18 00:00 Temperature 99.8 F H Pulse Rate 101 H 98 H 98 H Respiratory Rate 16 16 18 Blood Pressure 97/55 L Pulse Oximetry 100 100 100 02/09/18 04:00 02/09/18 04:12 02/09/18 06:00 Temperature 98 F Pulse Rate 98 H 102 H 93 H Respiratory Rate 15 20 Blood Pressure 103/52 L Pulse Oximetry 96 100 Intake & Output 02/08/18 02/09/18 02/09/18 18:59 06:59 18:59 Intake Total 1215 / 1215 1870 / 1870 Output Total 451 / 451 725 / 725 Balance 764 / 764 1145 / 1145 Weight 87.4 kg Intake: IV 525 / 525 1610 / 1610 KCl Inj 20 MEQ Sodium 1060 / 1060 Bicarbonate 8.4% Inj 50 MEQ In NS Inj 1,000 ML @ 100 mls/hr IV .CONT .[id number] EDE Rx#:[id number] Diflucan 400 mg Premix Bag 200 200 / 200 ML @ 100 mls/hr IV.SIG Q24H EDE Rx#:[id number] Merrem Inj 1,000 MG In NS Inj 100 / 100 100 / 100 100 ML @ 200 mls/hr IV.SIG Q12H EDE Rx#:[id number] Levophed Inj 4 MG In NS Inj 246 250 / 250 250 / 250 ML @ 2 MCG/MIN 7.5 mls/hr IV. SIG TITRATE PRN Rx#:[id number] Levophed-Dextrose 4 mg/250 ml 175 / 175 Drip 4 mg In 250 ml @ 0 mls/hr IV.SIG .[facility] Rx#: [id number] Oral 0 / 0 Tube Irrigant 90 / 90 60 / 60 Water Bolus Amount 200 / 200 200 / 200 Intake (Blood Product) Amt 400 / 400 Rbc As-3 Leukoreduced Unit 0 / 0 [id number] Rbc As-3 Leukoreduced Unit 400 / 400 [id number] Output: Urine 450 / 450 Emesis Urine Amount (Catheter) 725 / 725 Indwelling Urethral Catheter 725 / 725 Other: Date of Last Bowel Movement 02/08/18 02/09/18 # Incontinent Bowel Movements 1 Result Diagrams: 02/09/18 08:15 02/09/18 08:15 Objective Remarks: GENERAL: Patient is 77 yo encephalopathy unresponsive on the vent. Eyes are spontaneously open SKIN: Warm and dry. HEAD: Normocephalic. EYES: No scleral icterus. No injection. Pupils equal nonreactive NECK: Cuffed tracheostomy tube in place. Moderate secretions CARDIOVASCULAR: S1-S2 normal no murmurs RESPIRATORY: Breath sounds equal bilaterally. Coarse wheezes and rhonchi GASTROINTESTINAL: Abdomen soft. +PEG tube MUSCULOSKELETAL: No cyanosis, or edema. NEURO: Eyes are spontaneously open. No tracking no response to voice. Slight withdrawal to the upper extremity, lower extremities remain flaccid Assessment and Plan - Assessment and Plan Plan: Assessment: Asystole/Cardiac arrest Worsening encephalopathy most likely anoxia contributing Aspiration pneumonia Acute on chronic hypoxemic and hypercapnic resp failure Combined shock, septic and cardiogenic Healthcare associated pneumonia, stenotrophomonas Candidemia UTI with ESBL E. coli Hyponatremia CVA Anemia requiring transfusion Sacral decubitus ulcer s/p NSTEMI Optic neuritis Status post tracheostomy and PEG tube placement Plan: Impression: Neuro -Acute worsening of encephalopathy secondary to systolic cardiac arrest, anoxia -CT head 02/08/[address] Pereira reconsulted per family request -Patient with encephalopathy, seizures, L ENID infarct. Status post systemic TPA on November 09 -On warfarin INR 2.7 -Neuropsychology has followed. Continue Ritalin -Optic neuritis. Status post treatment with IV hydrocortisone -May need MRI-defer to neurology CV: -Asystole/cardiac arrest seems secondary to hypoxia and hypercapnia from severe aspiration -Levophed to keep map above 65, now weaned off -s/p IV fluid normal saline 2 L bolus, 2U PRBC -Change maintenance fluid to half-normal saline due to hypernatremia -Shock septic and hypovolemic -History of NSTEMI -Continue Coumadin -Echo 10/19: LV systolic function is moderately reduced, EF 40-45%. Cardiology has followed Dr. Hernández -Cardura 2mg daily and Coreg 3.125mg BID on hold due to hypotension -On Lipitor 80mg qhs Pulm: -Cardiac arrest seems to be secondary to respiratory arrest -F/u sputum culture, PRVC/AC ventilation. DuoNeb every 6 hours scheduled and as needed -Cuff less tracheostomy tube removed and new Shiley 8 cuffed tracheostomy placed -ICU vent bundle. Pulm toilet, trach care. -On Levaquin for stenotrophomonas, Diflucan for candidemia. Added meropenem for previous ESBL E Coli HCAP GI -Resume tube feeds -On Pepcid 10mg BID -Free water flushes : -Monitor renal function, electrolytes replacement per protocol -CMP at 1400 -Change maintenance fluid to half-normal saline due to hypernatremia ID -Currently receiving Levaquin for stenotrophomonas, Diflucan for candidemia -Added meropenem 02/08/18or previous ESBL E. coli HCAP -Previous UTI with ESBL E. coli, Previous healthcare associated pneumonia with Klebsiella and ESBL E. coli -F/U blood and sputum culture and urine culture -ID Dr. Jalloh following Skin -Sacral wound-Seen by Plastic surgery; debridement declined per patient's family -Wound care is following- apply dressings per wound management recommendations Heme: -Monitor hemoglobin closely. Status post 2 units PRBC on 02/08/2018 -Previous GI bleed; Status post EGD colonoscopy. GI has signed off, patient with healed rectal ulcers and hemorrhoids. -INR therapeutic -If recurrent anemia will reconsult GI Endo -On SSI for glycemic control GI prophylaxis- on Pepcid DVT prophylaxis- On Coumadin Patient is very critical after aspiration hypoxemic and hypercarbic respiratory failure leading to asystolic cardiac arrest. 10 minute of CPR with return of spontaneous circulation after aggressive resuscitation following CPR patient remains hypoxemic and encephalopathy. Family updated CCT 45 MIN excluding procedures Code Status: Full
[2018-02-09 08:37] LABS: Hematocrit 23.8 % (39.0-51.0); Hemoglobin 7.8 gm/dL (13.0-17.0); Mean Corpuscular HGB Conc 32.7 % (32.0-36.0); Mean Corpuscular Hemoglobin 27.8 pg (27.0-34.0); Mean Corpuscular Volume 85.1 fL (80.0-100.0); Mean Platelet Volume 8.2 fL (7.0-11.0); Platelet Count 183 th/mm3 (150-450); Red Cell Distribution Width 19.1 % (11.6-17.2); White Blood Count 10.7 th/mm3 (4.0-11.0)
[2018-02-09 09:11] LABS: Alanine Aminotransferase 66 U/L (12-78); Alkaline Phosphatase 151 U/L (45-117); Anion Gap 6 meq/L (5-15); Aspartate Aminotransferase 65 U/L (15-37); Blood Urea Nitrogen 81 mg/dL (7-18); Calcium 7.6 mg/dL (8.5-10.1); Carbon Dioxide 27.6 meq/L (21.0-32.0); Chloride 121 meq/L (98-107); Glomerular Filtration Rate 49 mL/min (>89); Glucose,Random 62 mg/dL (74-106); Potassium 3.8 meq/L (3.5-5.1); Sodium 155 meq/L (136-145); Total Protein 5.9 g/dL (6.4-8.2)
--- NOTE | 2018-02-09 09:19 | XR ---
EXAM DATE: 02/09/2018 8:30 AM EDT AGE/SEX: 77 years / Male INDICATIONS: Congestion and shortness of breath. CLINICAL DATA: This is the patient's subsequent encounter. Patient reports that signs and symptoms h ave been present for 4 - 6 days and indicates a pain score of Nonresponsive. MEDICAL/SURGICAL HISTORY: Chronic obstructive pulmonary disease. Cardiovascular disease. Diab etes. . Coronary artery stent. COMPARISON: [facility], CHEST 1V SINGLE AP, 02/08/2018. . FINDINGS: Tracheostomy is stable in good position. Right subclavian central line is stable. There is persistent patchy bilateral pleural-parenchymal opacity, slightly worse on the right than the left. Accounting for significant rotation, cardiac contours appear satisfactory. CONCLUSION: No significant change Electronically signed by: Antolin Dyer MD 02/09/2018 9:18 AM EDT
[2018-02-09] MEDS: Insulin Glargine Inj 1,000 UNITS/10 ML Vial SQ SCH ×2 (09:27→21:10)
[2018-02-09] MEDS: Polyethylene Glycol 3350 17 GM Packet PO SCH (09:30)
[2018-02-09] MEDS: Hydrocortisone Acetate 25 MG Supp RECTAL SCH ×2 (10:21→20:09)
[2018-02-09] MEDS: Famotidine 20 MG Tablet PO SCH ×2 (10:21→20:09)
[2018-02-09] MEDS: Sodium Chloride 0.45 % Inj 1,000 ML IV.CONT SCH (10:23)
[2018-02-09] MEDS: Dextrose 50% in Water 50 ML Vial IV.PUSH PRN ×2 (12:47→13:20)
[2018-02-09 15:53] LABS: Alanine Aminotransferase 62 U/L (12-78); Alkaline Phosphatase 144 U/L (45-117); Anion Gap 9 meq/L (5-15); Aspartate Aminotransferase 60 U/L (15-37); Blood Urea Nitrogen 79 mg/dL (7-18); Calcium 7.7 mg/dL (8.5-10.1); Carbon Dioxide 27.1 meq/L (21.0-32.0); Chloride 120 meq/L (98-107); Glomerular Filtration Rate 49 mL/min (>89); Glucose,Random 89 mg/dL (74-106); Potassium 3.6 meq/L (3.5-5.1); Total Protein 5.8 g/dL (6.4-8.2)
[2018-02-09 15:57] LABS: Sodium 156 meq/L (136-145)
--- NOTE | 2018-02-09 17:34 | P.PNNEU ---
Subjective Subjective Comments: Pt had CP arrest yesterday. Now with diminished responsiveness Active Medications: Active Medications Acetaminophen (Tylenol) 650 mg PO Q6H PRN PRN Reason: FEVER/PAIN SCALE 1 TO 2 Last Admin: 01/31/18 20:49 Dose: 650 mg Al Hydroxide/Mg Hydroxide (Milk Of Ayah Liq) 30 ml PO Q12H PRN PRN Reason: Mild constipation Albuterol (Duoneb Neb (Louie)) 1 ampul NEB Q4HR NEB [facility] Last Admin: 02/09/18 15:51 Dose: 1 ampul Albuterol (Duoneb Neb (Prn)) 1 ampul NEB Q2HR NEB PRN PRN Reason: SHORTNESS OF BREATH Last Admin: 01/23/18 01:58 Dose: 1 ampul Atorvastatin Calcium (Llipitor) 80 mg PO HS [facility] Last Admin: 02/08/18 21:27 Dose: 80 mg Carvedilol (Coreg) 3.125 mg G-TUBE BID [facility] Last Admin: 02/07/18 20:37 Dose: 3.125 mg Cod Liver Oil/Zinc Oxide (Desitin 40% Oint) 1 applicatio TOPICAL UNSCH PRN PRN Reason: DIAPER RASH Collagenase (Santyl Oint) 1 applicatio TOPICAL DAILY [facility] Last Admin: 02/09/18 09:30 Dose: Not Given Dextrose (D50w Vial) 25 ml IV.PUSH UNSCH PRN PRN Reason: HYPOGLYCEMIA-SEE COMMENTS Last Admin: 02/09/18 13:20 Dose: 25 ml Doxazosin Mesylate (Cardura) 4 mg PO DAILY [facility] Last Admin: 12/31/17 09:52 Dose: Not Given Famotidine (Pepcid) 10 mg PO BID [facility] Last Admin: 02/09/18 10:21 Dose: 10 mg Glucagon (Glucagon Inj) 1 mg OTHER UNSCH PRN PRN Reason: HYPOGLYCEMIA - SEE COMMENTS Heparin Sodium (Porcine) (Heparin Inj) 1,000 units OTHER WITH DIALYSIS PRN PRN Reason: SEE LABEL COMMENTS Hydrocortisone Acetate (Hemorrhoidal Hc Supp) 25 mg RECTAL BID [facility] Last Admin: 02/09/18 10:21 Dose: Not Given Hydromorphone HCl (Dilaudid Pf Inj) 0.5 mg IV.PUSH Q4H PRN PRN Reason: pain 8-10 or not taking po Last Admin: 01/09/18 02:47 Dose: 0.5 mg Hyoscyamine (Levsin Liq) 0.125 mg SL Q4H PRN PRN Reason: SECRETIONS Last Admin: 01/13/18 00:42 Dose: 0.125 mg Pharmacy Profile Note (Coumadin Consult Pharmacy) mls @ 0 mls/hr OTHER UNSCH [facility] Norepinephrine Bitartrate 4 mg (/ Sodium Chloride) 250 mls @ 7.5 mls/hr IV.SIG TITRATE PRN; Protocol PRN Reason: Per Protocol Last Titration: 02/09/18 04:53 Dose: 0 mcg/min, 0 mls/hr Meropenem 1,000 mg/ Sodium (Chloride) 100 mls @ 200 mls/hr IV.SIG Q12H [facility] Last Infusion: 02/09/18 10:55 Dose: Infused Sodium Chloride (1/2 Normal Saline Inj) 1,000 mls @ 100 mls/hr IV.CONT .Q10H [facility] Last Admin: 02/09/18 10:23 Dose: 100 mls/hr Fluconazole (Diflucan 400 Mg Premix Bag) 200 mls @ 100 mls/hr IV.SIG Q24H [facility] Last Infusion: 02/09/18 02:11 Dose: Infused Insulin Glargine (Lantus Inj) 25 units SQ BID [facility] Last Admin: 02/09/18 09:27 Dose: Not Given Insulin Human Regular (Novolin R Supplemental Scale) 0 units SQ Q6HR [facility]; Protocol Last Admin: 02/09/18 13:11 Dose: Not Given Levofloxacin (Levaquin) 750 mg PO Q48H [facility] Last Admin: 02/08/18 12:35 Dose: 750 mg Methylphenidate HCl (Ritalin) 10 mg PO BID@0800,1200 [facility] Last Admin: 02/09/18 14:09 Dose: 10 mg Miscellaneous (Pill Splitter) 1 each OTHER UNSCH PRN PRN Reason: SEE LABEL COMMENTS Ondansetron HCl (Zofran Inj) 4 mg IV.PUSH Q6H PRN PRN Reason: NAUSEA OR VOMITING Polyethylene Glycol (Miralax) 17 gm PO DAILY [facility] Last Admin: 02/09/18 09:30 Dose: Not Given Pramoxine HCl (Proctofoam) 1 applicatio RECTAL Q6HR [facility] Last Admin: 02/09/18 13:11 Dose: 1 applicatio Sennosides (Senokot) 17.2 mg PO Q12H PRN PRN Reason: Moderate constipation Sodium Chloride (Ns Flush) 2 ml IV.FLUSH UNSCH PRN PRN Reason: FLUSH AFTER USING IV ACCESS Last Admin: 01/10/18 08:18 Dose: 2 ml Sodium Chloride (Ns Flush) 2 ml IV.FLUSH BID [facility] Last Admin: 02/09/18 10:22 Dose: 2 ml Sodium Chloride (Ns Flush) 10 ml IV.FLUSH UNSCH PRN PRN Reason: SEE LABEL COMMENTS Last Admin: 01/11/18 20:49 Dose: 10 ml Terbutaline Sulfate (Brethine Inj) 1 mg SQ UNSCH PRN PRN Reason: For Extravasation Warfarin Sodium (Coumadin) 1 mg PO DAILY@1600 [facility] Last Admin: 02/07/18 16:10 Dose: 1 mg Allergies/Adverse Reactions: Allergies Allergy/AdvReac Type Severity Reaction Status Date / Time Glucerna 1.5 AdvReac Vomiting Uncoded 02/09/18 12:04 Physical Exam Vital signs: Vital Signs 02/08/18 18:20 02/08/18 20:00 02/08/18 20:18 Temperature 98.8 F 99.3 F Pulse Rate 99 H 100 H 101 H Respiratory Rate 22 18 16 Blood Pressure 118/65 119/63 Pulse Oximetry 100 100 100 02/08/18 23:49 02/09/18 00:00 02/09/18 04:00 Temperature 99.8 F H 98 F Pulse Rate 98 H 98 H 98 H Respiratory Rate 16 18 15 Blood Pressure 97/55 L 103/52 L Pulse Oximetry 100 100 96 02/09/18 04:12 02/09/18 06:00 02/09/18 08:00 Temperature 98.2 F Pulse Rate 102 H 93 H 92 H Respiratory Rate 20 16 Blood Pressure 92/54 L Pulse Oximetry 100 97 02/09/18 09:02 02/09/18 09:08 02/09/18 10:00 Temperature Pulse Rate 101 H 90 Respiratory Rate 16 16 Blood Pressure Pulse Oximetry 100 02/09/18 12:00 02/09/18 12:05 02/09/18 14:00 Temperature 97.1 F L Pulse Rate 88 88 91 H Respiratory Rate 16 16 Blood Pressure 99/56 L Pulse Oximetry 100 100 02/09/18 16:00 Temperature 97.1 F L Pulse Rate 92 H Respiratory Rate 16 Blood Pressure 111/61 Pulse Oximetry 100 Intake & Output 02/08/18 02/09/18 02/09/18 18:59 06:59 18:59 Intake Total 1215 / 1215 1870 / 1870 850 / 850 Output Total 451 / 451 725 / 725 Balance 764 / 764 1145 / 1145 850 / 850 Weight 87.4 kg Intake: IV 525 / 525 1610 / 1610 850 / 850 KCl Inj 20 MEQ Sodium 1060 / 1060 750 / 750 Bicarbonate 8.4% Inj 50 MEQ In NS Inj 1,000 ML @ 100 mls/hr IV .CONT .[id number] [facility] Rx#:[id number] Diflucan 400 mg Premix Bag 200 200 / 200 ML @ 100 mls/hr IV.SIG Q24H [facility] Rx#:[id number] Merrem Inj 1,000 MG In NS Inj 100 / 100 100 / 100 100 / 100 100 ML @ 200 mls/hr IV.SIG Q12H [facility] Rx#:[id number] Levophed Inj 4 MG In NS Inj 246 250 / 250 250 / 250 ML @ 2 MCG/MIN 7.5 mls/hr IV. SIG TITRATE PRN Rx#:[id number] Levophed-Dextrose 4 mg/250 ml 175 / 175 Drip 4 mg In 250 ml @ 0 mls/hr IV.SIG .STK-MED ONE Rx#: [id number] Oral 0 / 0 Tube Irrigant 90 / 90 60 / 60 Water Bolus Amount 200 / 200 200 / 200 Intake (Blood Product) Amt 400 / 400 Rbc As-3 Leukoreduced Unit 0 / 0 [id number] Rbc As-3 Leukoreduced Unit 400 / 400 [id number] Output: Urine 450 / 450 Emesis 1 / Urine Amount (Catheter) 725 / 725 Indwelling Urethral Catheter 725 / 725 Other: Date of Last Bowel Movement 02/08/18 02/09/18 02/09/18 # Incontinent Bowel Movements 1 1 - Routine Neurological Exam nonresponsive to voice or tactile stimulation CN--pupils 1 mm slugishly reactive MOTOR--no spontaneous limb movement, no withdrawal, no posturing. - Urinary Catheter Management Straight Cath placed during this visit: yes Urethral indwelling: Yes Reason for continuing: Acute urinary retention Insertion date: 01/21/18 Insertion time: 08:00 Indwelling Urethral Catheter Cath placed during this visit: yes, but has since been removed by the nurse Urethral indwelling: Yes Reason for continuing: Chronic Urinary Retention Insertion date: 01/21/18 Insertion time: 16:18 Removal date: 01/20/18 Removal time: 15:15 Objective Laboratory Results - last 24 hr 02/08/18 02/08/18 02/08/18 12:07 18:10 19:15 WBC RBC Hgb 8.9 L D Hct 27.8 L MCV MCH MCHC RDW Plt Count MPV PT INR Sodium Potassium Chloride Carbon Dioxide Anion Gap BUN Creatinine Estimated GFR POC Glucose 130 H Random Glucose Lactic Acid Calcium Total Bilirubin AST ALT Alkaline Phosphatase Total Protein Albumin MTS Gel Crossmatch See Detail 02/08/18 02/09/18 02/09/18 21:17 01:01 05:22 WBC RBC Hgb Hct MCV MCH MCHC RDW Plt Count MPV PT 26.9 H INR 2.7 Sodium Potassium Chloride Carbon Dioxide Anion Gap BUN Creatinine Estimated GFR POC Glucose 95 95 Random Glucose Lactic Acid Calcium Total Bilirubin AST ALT Alkaline Phosphatase Total Protein Albumin MTS Gel Crossmatch 02/09/18 02/09/18 02/09/18 05:43 08:15 08:15 WBC 10.7 D RBC 2.80 L Hgb 7.8 L Hct 23.8 L MCV 85.1 MCH 27.8 MCHC 32.7 RDW 19.1 H Plt Count 183 MPV 8.2 PT INR Sodium Potassium Chloride Carbon Dioxide Anion Gap BUN Creatinine Estimated GFR POC Glucose 88 Random Glucose Lactic Acid 1.7 Calcium Total Bilirubin AST ALT Alkaline Phosphatase Total Protein Albumin MTS Gel Crossmatch 02/09/18 02/09/18 02/09/18 08:15 12:30 13:17 WBC RBC Hgb Hct MCV MCH MCHC RDW Plt Count MPV PT INR Sodium 155 H Potassium 3.8 D Chloride 121 H Carbon Dioxide 27.6 Anion Gap 6 BUN 81 H Creatinine 1.39 H Estimated GFR 49 L POC Glucose 62 L 89 Random Glucose 62 L D Lactic Acid Calcium 7.6 L Total Bilirubin 0.4 AST 65 H ALT 66 Alkaline Phosphatase 151 H Total Protein 5.9 L Albumin 1.0 L MTS Gel Crossmatch 02/09/18 02/09/18 14:13 14:55 WBC RBC Hgb Hct MCV MCH MCHC RDW Plt Count MPV PT INR Sodium 156 H* Potassium 3.6 Chloride 120 H Carbon Dioxide 27.1 Anion Gap 9 BUN 79 H Creatinine 1.41 H Estimated GFR 49 L POC Glucose 107 Random Glucose 89 Lactic Acid Calcium 7.7 L Total Bilirubin 0.3 AST 60 H ALT 62 Alkaline Phosphatase 144 H Total Protein 5.8 L Albumin 1.0 L MTS Gel Crossmatch Microbiology 02/08/18 12:00 Gram Stain - Final Sputum - Endotracheal Sputum Culture - Preliminary gram negative rods 02/08/18 12:00 Urine Culture - Preliminary Catheterized Urine No growth in 24 hours 02/08/18 13:10 Aerobic Blood Culture - Preliminary Blood - Peripheral No growth in 1 day Anaerobic Blood Culture - Final QNS - See aerobic report. 02/08/18 10:24 Aerobic Blood Culture - Preliminary Blood - Peripheral No growth in 1 day Anaerobic Blood Culture - Preliminary No growth in 1 day 02/08/18 13:15 Blood Fungal Culture - Final Blood - Peripheral 01/04/18 12:45 Acid Fast Bacilli Smear - Final Fluid - Pleural fluid No acid fast bacilli seen Mycobacterial Culture - Preliminary No growth in 5 weeks Review/Management - Diagnosis (1) CVA (cerebral vascular accident) Code(s): I63.9 - Cerebral infarction, unspecified Status: Acute Current Visit: Yes (2) CVA (cerebral vascular accident) Code(s): I63.9 - Cerebral infarction, unspecified Status: Acute Current Visit: Yes (3) Anoxic encephalopathy Code(s): G93.1 - Anoxic brain damage, not elsewhere classified Status: Acute Current Visit: Yes - Review/Management Plan: MRI brain and EEG for prognosis
--- NOTE | 2018-02-09 18:46 | P.PN ---
Subjective Interval history: UNRESPONSIVE ON VENT SUPPORT Physical Exam Vital signs: Vital Signs 02/08/18 20:00 02/08/18 20:18 02/08/18 23:49 Temperature 99.3 F Pulse Rate 100 H 101 H 98 H Respiratory Rate 18 16 16 Blood Pressure 119/63 Pulse Oximetry 100 100 100 02/09/18 00:00 02/09/18 04:00 02/09/18 04:12 Temperature 99.8 F H 98 F Pulse Rate 98 H 98 H 102 H Respiratory Rate 18 15 20 Blood Pressure 97/55 L 103/52 L Pulse Oximetry 100 96 100 02/09/18 06:00 02/09/18 08:00 02/09/18 09:02 Temperature 98.2 F Pulse Rate 93 H 92 H Respiratory Rate 16 16 Blood Pressure 92/54 L Pulse Oximetry 97 100 02/09/18 09:08 02/09/18 10:00 02/09/18 12:00 Temperature 97.1 F L Pulse Rate 101 H 90 88 Respiratory Rate 16 16 Blood Pressure 99/56 L Pulse Oximetry 100 02/09/18 12:05 02/09/18 14:00 02/09/18 16:00 Temperature 97.1 F L Pulse Rate 88 91 H 92 H Respiratory Rate 16 16 Blood Pressure 111/61 Pulse Oximetry 100 100 02/09/18 18:00 Temperature Pulse Rate 96 H Respiratory Rate Blood Pressure Pulse Oximetry Intake & Output 02/08/18 02/09/18 02/09/18 18:59 06:59 18:59 Intake Total 1215 / 1215 1870 / 1870 1305 / 1305 Output Total 451 / 451 725 / 725 550 / 550 Balance 764 / 764 1145 / 1145 755 / 755 Weight 87.4 kg Intake: IV 525 / 525 1610 / 1610 850 / 850 KCl Inj 20 MEQ Sodium 1060 / 1060 750 / 750 Bicarbonate 8.4% Inj 50 MEQ In NS Inj 1,000 ML @ 100 mls/hr IV .CONT .[id number] [facility] Rx#:[id number] Diflucan 400 mg Premix Bag 200 200 / 200 ML @ 100 mls/hr IV.SIG Q24H [facility] Rx#:[id number] Merrem Inj 1,000 MG In NS Inj 100 / 100 100 / 100 100 / 100 100 ML @ 200 mls/hr IV.SIG Q12H [facility] Rx#:[id number] Levophed Inj 4 MG In NS Inj 246 250 / 250 250 / 250 ML @ 2 MCG/MIN 7.5 mls/hr IV. SIG TITRATE PRN Rx#:[id number] Levophed-Dextrose 4 mg/250 ml 175 / 175 Drip 4 mg In 250 ml @ 0 mls/hr IV.SIG .STK-MED ONE Rx#: [id number] Oral 0 / 0 Tube Feeding 55 / 55 Tube Irrigant 90 / 90 60 / 60 Water Bolus Amount 200 / 200 200 / 200 400 / 400 Intake (Blood Product) Amt 400 / 400 Rbc As-3 Leukoreduced Unit 0 / 0 [id number] Rbc As-3 Leukoreduced Unit 400 / 400 [id number] Output: Urine 450 / 450 Emesis Urine Amount (Catheter) 725 / 725 550 / 550 Indwelling Urethral Catheter 725 / 725 550 / 550 Other: Date of Last Bowel Movement 02/08/18 02/09/18 02/09/18 # Incontinent Bowel Movements 1 1 0 Narrative: GENERAL: Awake, INAD. SKIN: Warm and dry. +sacral decub per wound care notes. HEAD: Atraumatic. Normocephalic. EYES: Pupils equal and round. No scleral icterus. No injection or drainage. ENT: No nasal bleeding or discharge. Mucous membranes pink and moist. NECK: Trachea midline. Trach in place. CARDIOVASCULAR: Regular rate and rhythm. RESPIRATORY: No accessory muscle use. Clear to auscultation. Breath sounds equal bilaterally. GASTROINTESTINAL: Abdomen soft, non-tender, nondistended. PEG in place. GENITOURINARY: [place] in place - placed 01/21 MUSCULOSKELETAL: Extremities without clubbing, cyanosis, or edema. NEUROLOGICAL: Awake. Unable to follow commands. Nonverbal. PSYCHIATRIC: Calm. - Urinary Catheter Management Straight Cath placed during this visit: yes Urethral indwelling: Yes Reason for continuing: Acute urinary retention Insertion date: 01/21/18 Insertion time: 08:00 Indwelling Urethral Catheter Cath placed during this visit: yes, but has since been removed by the nurse Urethral indwelling: Yes Reason for continuing: Chronic Urinary Retention Insertion date: 01/21/18 Insertion time: 16:18 Removal date: 01/20/18 Removal time: 15:15 Results - Labs CBC & Chem 7: 02/09/18 08:15 02/09/18 14:55 Laboratory Results - last 24 hr 02/08/18 02/08/18 02/09/18 19:15 21:17 01:01 WBC RBC Hgb 8.9 L D Hct 27.8 L MCV MCH MCHC RDW Plt Count MPV PT INR Sodium Potassium Chloride Carbon Dioxide Anion Gap BUN Creatinine Estimated GFR POC Glucose 95 95 Random Glucose Lactic Acid Calcium Total Bilirubin AST ALT Alkaline Phosphatase Total Protein Albumin 02/09/18 02/09/18 02/09/18 05:22 05:43 08:15 WBC RBC Hgb Hct MCV MCH MCHC RDW Plt Count MPV PT 26.9 H INR 2.7 Sodium Potassium Chloride Carbon Dioxide Anion Gap BUN Creatinine Estimated GFR POC Glucose 88 Random Glucose Lactic Acid 1.7 Calcium Total Bilirubin AST ALT Alkaline Phosphatase Total Protein Albumin 02/09/18 02/09/18 02/09/18 08:15 08:15 12:30 WBC 10.7 D RBC 2.80 L Hgb 7.8 L Hct 23.8 L MCV 85.1 MCH 27.8 MCHC 32.7 RDW 19.1 H Plt Count 183 MPV 8.2 PT INR Sodium 155 H Potassium 3.8 D Chloride 121 H Carbon Dioxide 27.6 Anion Gap 6 BUN 81 H Creatinine 1.39 H Estimated GFR 49 L POC Glucose 62 L Random Glucose 62 L D Lactic Acid Calcium 7.6 L Total Bilirubin 0.4 AST 65 H ALT 66 Alkaline Phosphatase 151 H Total Protein 5.9 L Albumin 1.0 L 02/09/18 02/09/18 02/09/18 13:17 14:13 14:55 WBC RBC Hgb Hct MCV MCH MCHC RDW Plt Count MPV PT INR Sodium 156 H* Potassium 3.6 Chloride 120 H Carbon Dioxide 27.1 Anion Gap 9 BUN 79 H Creatinine 1.41 H Estimated GFR 49 L POC Glucose 89 107 Random Glucose 89 Lactic Acid Calcium 7.7 L Total Bilirubin 0.3 AST 60 H ALT 62 Alkaline Phosphatase 144 H Total Protein 5.8 L Albumin 1.0 L 02/09/18 17:43 WBC RBC Hgb Hct MCV MCH MCHC RDW Plt Count MPV PT INR Sodium Potassium Chloride Carbon Dioxide Anion Gap BUN Creatinine Estimated GFR POC Glucose 92 Random Glucose Lactic Acid Calcium Total Bilirubin AST ALT Alkaline Phosphatase Total Protein Albumin Microbiology 02/08/18 12:00 Sputum - Endotracheal Gram Stain - Final 02/08/18 12:00 Sputum - Endotracheal Sputum Culture - Preliminary gram negative rods 02/08/18 12:00 Catheterized Urine Urine Culture - Preliminary No growth in 24 hours 02/08/18 13:10 Blood - Peripheral Aerobic Blood Culture - Preliminary No growth in 1 day 02/08/18 13:10 Blood - Peripheral Anaerobic Blood Culture - Final QNS - See aerobic report. 02/08/18 10:24 Blood - Peripheral Aerobic Blood Culture - Preliminary No growth in 1 day 02/08/18 10:24 Blood - Peripheral Anaerobic Blood Culture - Preliminary No growth in 1 day 02/08/18 13:15 Blood - Peripheral Blood Fungal Culture - Final - Imaging Impressions Chest X-Ray 02/09/18 00:00 CONCLUSION: No significant change Assessment and Plan - Plan RESPIRATORY FAILURE POST C/P ARREST S/P cva S/P OH S/P trach ACUTE ASPIRATION plan VENT SUPPORT PULM TOILET OUTLOOK POOR
--- NOTE | 2018-02-09 18:50 | P.PNID ---
Subjective Remarks: remains on vent W/d with BUE ti stimulation, non other response no fever sputu with GNB + diarrhea Antibiotics: diflucan meropenem levaquine Lines: Lines ok Past Medical History: reviewed Allergies/Adverse Reactions: Allergies Glucerna 1.5 Adverse Reaction (Uncoded 02/09/18 12:04) Vomiting Objective Vital Signs 02/08/18 20:00 02/08/18 20:18 02/08/18 23:49 Temperature 99.3 F Pulse Rate 100 H 101 H 98 H Respiratory Rate 18 16 16 Blood Pressure 119/63 Pulse Oximetry 100 100 100 02/09/18 00:00 02/09/18 04:00 02/09/18 04:12 Temperature 99.8 F H 98 F Pulse Rate 98 H 98 H 102 H Respiratory Rate 18 15 20 Blood Pressure 97/55 L 103/52 L Pulse Oximetry 100 96 100 02/09/18 06:00 02/09/18 08:00 02/09/18 09:02 Temperature 98.2 F Pulse Rate 93 H 92 H Respiratory Rate 16 16 Blood Pressure 92/54 L Pulse Oximetry 97 100 02/09/18 09:08 02/09/18 10:00 02/09/18 12:00 Temperature 97.1 F L Pulse Rate 101 H 90 88 Respiratory Rate 16 16 Blood Pressure 99/56 L Pulse Oximetry 100 02/09/18 12:05 02/09/18 14:00 02/09/18 16:00 Temperature 97.1 F L Pulse Rate 88 91 H 92 H Respiratory Rate 16 16 Blood Pressure 111/61 Pulse Oximetry 100 100 02/09/18 18:00 Temperature Pulse Rate 96 H Respiratory Rate Blood Pressure Pulse Oximetry Intake & Output 02/08/18 02/09/18 02/09/18 18:59 06:59 18:59 Intake Total 1215 / 1215 1870 / 1870 1305 / 1305 Output Total 451 / 451 725 / 725 550 / 550 Balance 764 / 764 1145 / 1145 755 / 755 Weight 87.4 kg Intake: IV 525 / 525 1610 / 1610 850 / 850 KCl Inj 20 MEQ Sodium 1060 / 1060 750 / 750 Bicarbonate 8.4% Inj 50 MEQ In NS Inj 1,000 ML @ 100 mls/hr IV .CONT .[id number] [facility] Rx#:[id number] Diflucan 400 mg Premix Bag 200 200 / 200 ML @ 100 mls/hr IV.SIG Q24H [facility] Rx#:[id number] Merrem Inj 1,000 MG In NS Inj 100 / 100 100 / 100 100 / 100 100 ML @ 200 mls/hr IV.SIG Q12H [facility] Rx#:[id number] Levophed Inj 4 MG In NS Inj 246 250 / 250 250 / 250 ML @ 2 MCG/MIN 7.5 mls/hr IV. SIG TITRATE PRN Rx#:[id number] Levophed-Dextrose 4 mg/250 ml 175 / 175 Drip 4 mg In 250 ml @ 0 mls/hr IV.SIG .STK-MED ONE Rx#: [id number] Oral 0 / 0 Tube Feeding 55 / 55 Tube Irrigant 90 / 90 60 / 60 Water Bolus Amount 200 / 200 200 / 200 400 / 400 Intake (Blood Product) Amt 400 / 400 Rbc As-3 Leukoreduced Unit 0 / 0 [id number] Rbc As-3 Leukoreduced Unit 400 / 400 [id number] Output: Urine 450 / 450 Emesis Urine Amount (Catheter) 725 / 725 550 / 550 Indwelling Urethral Catheter 725 / 725 550 / 550 Other: Date of Last Bowel Movement 02/08/18 02/09/18 02/09/18 # Incontinent Bowel Movements 1 1 0 02/08/18 12:00 Sputum - Endotracheal Gram Stain - Final 02/08/18 12:00 Sputum - Endotracheal Sputum Culture - Preliminary gram negative rods 02/08/18 12:00 Catheterized Urine Urine Culture - Preliminary No growth in 24 hours 02/08/18 13:10 Blood - Peripheral Aerobic Blood Culture - Preliminary No growth in 1 day 02/08/18 13:10 Blood - Peripheral Anaerobic Blood Culture - Final QNS - See aerobic report. 02/08/18 10:24 Blood - Peripheral Aerobic Blood Culture - Preliminary No growth in 1 day 02/08/18 10:24 Blood - Peripheral Anaerobic Blood Culture - Preliminary No growth in 1 day 02/08/18 13:15 Blood - Peripheral Blood Fungal Culture - Pending 02/08/18 13:15 Blood - Peripheral Blood Fungal Culture - Final 01/04/18 12:45 Fluid - Pleural fluid Acid Fast Bacilli Smear - Final No acid fast bacilli seen 01/04/18 12:45 Fluid - Pleural fluid Mycobacterial Culture - Preliminary No growth in 5 weeks 01/03/18 17:00 Fluid - Pleural fluid Acid Fast Bacilli Smear - Final No acid fast bacilli seen 01/03/18 17:00 Fluid - Pleural fluid Mycobacterial Culture - Preliminary No growth in 5 weeks Lab - Hematology Results 02/08/18 02/08/18 02/09/18 10:24 19:15 08:15 WBC 6.9 10.7 D RBC 2.46 L 2.80 L Hgb 6.6 L* 8.9 L D 7.8 L Hct 21.7 L 27.8 L 23.8 L MCV 88.1 85.1 MCH 27.0 27.8 MCHC 30.6 L 32.7 RDW 19.3 H 19.1 H Plt Count 229 183 MPV 8.4 8.2 Lab - Chemistry Results 02/07/18 02/08/18 02/08/18 20:12 00:14 05:55 Sodium Potassium Chloride Carbon Dioxide Anion Gap BUN Creatinine Estimated GFR POC Glucose 230 H 179 H 188 H Random Glucose Lactic Acid Calcium Magnesium Total Bilirubin AST ALT Alkaline Phosphatase Troponin I Total Protein Albumin 02/08/18 02/08/18 02/08/18 10:24 10:24 12:00 Sodium 153 H Potassium 4.8 Chloride 119 H Carbon Dioxide 24.7 Anion Gap 9 BUN 80 H Creatinine 1.54 H Estimated GFR 44 L POC Glucose Random Glucose 215 H Lactic Acid 3.1 H Calcium 7.8 L Magnesium 2.7 H Total Bilirubin 0.3 AST 106 H ALT 89 H Alkaline Phosphatase 177 H Troponin I 0.05 Total Protein 5.8 L Albumin 1.1 L 02/08/18 02/08/18 02/09/18 18:10 21:17 01:01 Sodium Potassium Chloride Carbon Dioxide Anion Gap BUN Creatinine Estimated GFR POC Glucose 130 H 95 95 Random Glucose Lactic Acid Calcium Magnesium Total Bilirubin AST ALT Alkaline Phosphatase Troponin I Total Protein Albumin 02/09/18 02/09/18 02/09/18 05:43 08:15 08:15 Sodium 155 H Potassium 3.8 D Chloride 121 H Carbon Dioxide 27.6 Anion Gap 6 BUN 81 H Creatinine 1.39 H Estimated GFR 49 L POC Glucose 88 Random Glucose 62 L D Lactic Acid 1.7 Calcium 7.6 L Magnesium Total Bilirubin 0.4 AST 65 H ALT 66 Alkaline Phosphatase 151 H Troponin I Total Protein 5.9 L Albumin 1.0 L 02/09/18 02/09/18 02/09/18 12:30 13:17 14:13 Sodium Potassium Chloride Carbon Dioxide Anion Gap BUN Creatinine Estimated GFR POC Glucose 62 L 89 107 Random Glucose Lactic Acid Calcium Magnesium Total Bilirubin AST ALT Alkaline Phosphatase Troponin I Total Protein Albumin 02/09/18 02/09/18 14:55 17:43 Sodium 156 H* Potassium 3.6 Chloride 120 H Carbon Dioxide 27.1 Anion Gap 9 BUN 79 H Creatinine 1.41 H Estimated GFR 49 L POC Glucose 92 Random Glucose 89 Lactic Acid Calcium 7.7 L Magnesium Total Bilirubin 0.3 AST 60 H ALT 62 Alkaline Phosphatase 144 H Troponin I Total Protein 5.8 L Albumin 1.0 L Imaging: ITS Impressions Head MRI 01/02/18 00:00 CONCLUSION: 1. 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 2. Cerebral atrophy and chronic ischemic small vessel vasculopathy. Chest CT 01/03/18 00:00 CONCLUSION: 1. Large bilateral pleural effusions occupying more than half of the right and left hemithorax. Abdomen/Pelvis CT 01/13/18 00:00 CONCLUSION: 1. Small bilateral pleural effusions and basilar infiltrates with bilateral chest tubes in place. 2. No evidence of ascites or bowel dilatation. Abdomen/Bladder Ultrasound 01/15/18 00:00 CONCLUSION: 1. Negative renal sonogram. Abdomen X-Ray 02/08/18 00:00 CONCLUSION: 1. Nonobstructive bowel gas pattern. 2. Gastrostomy tube in the left upper abdominal quadrant Head CT 02/08/18 00:00 CONCLUSION: 1. Stable prominent senescent changes with mild to moderate periventricular ischemic white matter demyelination. 2. No acute intracranial abnormality.. Chest X-Ray 02/09/18 00:00 CONCLUSION: No significant change Physical Exam: GENERAL: unresponsive On vent SKIN: Warm and dry. No rash HEAD: Normocephalic. EYES: No scleral icterus. No injection or drainage. NECK: Supple, trachea midline. + trach in place with large amount of drainage CARDIOVASCULAR: RRR. No murmurs, rubs, gallops RESPIRATORY: Breath sounds equal bilaterally. No accessory muscle use. Scattereed rhonchi GASTROINTESTINAL: Abdomen soft, non-tender, nondistended. +PEG tube in place MUSCULOSKELETAL: No cyanosis, less prominent edema. 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 Prior h/o ESBL E.coli on 10/24/2017. Possible HCAP GNR UTI ? ESBL given h/o ESBL. 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 Encephalopathy: strokes in hospital, optic neuritis on presentation. Fungemia, C. tropicalis Persistent fever Gram negative UTI: PSAE and ESBL + Kleb PNA Acute VDRF Encepholapathy sp code New issue aspiration, likely aspiration PNA - Growing GNB in sputums Diara, abx associated Recs: cont Fluconazol con levaquin cont meropenem fu sputum clx fu bl clx chk c.diff dw Dr Antolin guevara RN
[2018-02-10] MEDS: Sodium Chloride 0.45 % Inj 1,000 ML IV.CONT SCH ×3 (01:00→17:07)
--- NOTE | 2018-02-10 05:04 | XR ---
EXAM DATE: 02/10/2018 4:04 AM EDT AGE/SEX: 77 years / Male INDICATIONS: Respiratory distress CLINICAL DATA: This is the patient's subsequent encounter. Patient reports that signs and symptoms h ave been present for 4 - 6 months and indicates a pain score of Nonresponsive. MEDICAL/SURGICAL HISTORY: Chronic obstructive pulmonary disease. Diabetes. Cardiovascular dis ease. . Coronary artery stent COMPARISON: [facility], CHEST 1V SINGLE AP, 02/09/2018. . FINDINGS: The tracheostomy tube is in good position. There is a right subclavian line in place with the tip ove rlying the superior cavoatrial junction. The heart size is normal. The lungs demonstrate diffuse incr eased interstitial markings. There is further increased density at the bases bilaterally. There is at least a mild left pleural effusion present. CONCLUSION: Diffuse increased interstitial markings likely related to diffuse underlying processes such as edema, diffuse infection, or ARDS. Hazy density at the bases likely related to a combination of atelectasis, consolidation and/or effusi on. There is a definite mild effusion on the left. Electronically signed by: Antolin Botello MD 02/10/2018 5:03 AM EDT
[2018-02-10 05:29] LABS: Hematocrit 23.6 % (39.0-51.0); Hemoglobin 7.6 gm/dL (13.0-17.0); Mean Corpuscular HGB Conc 32.3 % (32.0-36.0); Mean Corpuscular Hemoglobin 27.7 pg (27.0-34.0); Mean Corpuscular Volume 85.8 fL (80.0-100.0); Mean Platelet Volume 8.3 fL (7.0-11.0); Platelet Count 180 th/mm3 (150-450); Red Blood Count 2.75 mil/mm3 (4.50-5.90); Red Cell Distribution Width 19.5 % (11.6-17.2); White Blood Count 10.2 th/mm3 (4.0-11.0)
[2018-02-10 05:39] LABS: INR 3.9 Ratio; Prothrombin Time 39.4 sec (9.8-11.6)
[2018-02-10 05:47] LABS: Alanine Aminotransferase 57 U/L (12-78); Anion Gap 8 meq/L (5-15); Aspartate Aminotransferase 65 U/L (15-37); Blood Urea Nitrogen 80 mg/dL (7-18); Calcium 7.5 mg/dL (8.5-10.1); Carbon Dioxide 26.6 meq/L (21.0-32.0); Chloride 120 meq/L (98-107); Glomerular Filtration Rate 49 mL/min (>89); Glucose,Random 101 mg/dL (74-106); Magnesium 2.3 mg/dL (1.5-2.5); Potassium 3.5 meq/L (3.5-5.1); Sodium 155 meq/L (136-145)
[2018-02-10 05:49] LABS: Alkaline Phosphatase 155 U/L (45-117); Total Protein 5.9 g/dL (6.4-8.2)
[2018-02-10] MEDS: Insulin NovoLIN Regular Correctional Sugar Inj SQ SCH ×3 (05:49→17:06)
--- NOTE | 2018-02-10 07:55 | P.PNCC ---
Subjective Subjective Remarks/Hospital Course: This is a 77-year-old male who initially presented with vision changes and concern for optic neuritis versus temporal arteritis. His initial presentation was on 10/14. His hospital course has been complicated by an NSTEMI with troponins which peaked at 10, ESBL E. coli urinary tract infection, rectal bleeding suspected from bleeding hemorrhoids, acute anemia secondary to blood loss with hemoglobin started around 14 and is trended down to 9.7 this morning. On his initial MRA he was found to have significant atherosclerotic cerebrovascular disease in all vascular territories. Today, he had an acute mental status change and was obtunded. Rapid response and stroke alert was called. His initial NIH stroke scale was 22. Dr. goldstein had conversations with Dr. Ulloa and neurology as well as Dr. sierra with gastroenterology. GI feels comfortable with giving thrombolytics and neurology feels strongly that this patient would benefit from systemic IV TPA therapy. I evaluated the patient on arrival to the intensive care unit. The patient is arousable, but very somnolent. He is Persian speaking, and it is very difficult to ascertain whether or not he can follow commands. He does move all extremities spontaneously, although it appears that his left side is weaker than his right. He has noted facial droop. CT head is negative for acute hemorrhage. CTA head neck is significant for the same multivessel cerebrovascular disease that was present on admission. Given the high-risk nature of the stroke as well as his acute anemia this hospitalization, in preparation for giving emergent IV systemic TPA, I placed an arterial line as well as a large-bore peripheral IV so that we could draw serial labs, monitor his hemoglobin, and give blood products if necessary. I also had an additional discussion with the family where I reconfirmed that their goals were aggressive and they fully understood the significant risk of life-threatening hemorrhage associated with systemic TPA in a patient with new anemia and suspected GI bleeding. The family expressed understanding of his condition and understanding of the heightened risk of life-threatening bleeding, but still urged that we needed to get TPA. Immediately after giving IV TPA, patient had a tonic clonic seizure (witnessed on EEG) and became obtunded with acute hypoxic and hypercarbic respiratory failure and was emergently intubated (see separate procedure note for details). 11/10: remains intubated. encephalopathy persists. hgb stable s/p TPA. ~350cc bloody OG tube output, but this is slowing down. 11/11: more awake. on SBT. follows commands. 11/12: remains extubated. off vasopressors. no changes in mental status. 11/18/17 CCM Reconsult Note Patient was transferred to ICU today after a Halicat was called for AMS, hypoxia , high fever. Apparently patient was lethargic since a.m. in the last hour had been unresponsive and hence Halicat was called. Patient had a fever of 101.4 in a.m., T-max is 101.6. I immediately evaluated the patient in the ICU. Patient is completely unresponsive, oxygen saturation 87% on 4 L nasal cannula. Hypopneic. No response to deep pain. Patient was confirmed to be a full code and I proceeded with endotracheal intubation place him on mechanical ventilation as patient was not protecting airway. More history was obtained from discussion with ID Dr. Jalloh. She indicated patient had been increasingly lethargic with fever and also had urinary retention.She has discontinued Ertapenem, and started on meropenem, vancomycin and micafungin. Cultures have been sent and are pending now. Source of sepsis appears to be aspiration pneumonia versus UTI. Repeat UA and panculture pending at this time. Patient was borderline hypotensive prior to intubation and I have started on Levophed to avoid hypotension post intubation. Receiving 1 L normal saline bolus now, give additional fluid bolus if patient requires continued Levophed will place central line 11/19: remains intubated. holding aggrenox for possible thoracentesis today, but family hesitant to consent with concerns over bleeding risk. Cr remains elevated. discussion with Dr. Bernal, unlikely to benefit currently from draining effusion, so at his recommendation, will proceed with attempted weaning from mechanical ventilation and treat effusion conservatively. 11/20: Overnight /early this a.m. ,the patient was noted to have large amount of rectal bleeding. Aggrenox held since 11/18, 2/2 reintubation. Type and screen ordered. Serial H&H currently be performed. Hemodynamically stable. GI has been reconsulted. Protonix previously given PRN, will schedule BID. Patient was reintubated emergently 11/18, plan for continue CPAP trials. Tube feedings until evaluation by GI. ASA placed on hold , in the setting of GI bleeding. 11/21: EGD and colonoscopy performed yesterday. Patient was noted to be constipated ,disimpacted per GI. Patient noted to have hemorrhoids which was clipped. No further bleeding throughout the night. Chest x-ray showed improvement. CPAP trials initiated this a.m.. ASA 81 mg resumed. 11/22: Patient tolerated CPAP trials approximately 13 hours yesterday. Initiation of tube feeds per GI yesterday, no residuals. This am , family concerned patient not responsive. CT brain , ammonia level and EEG pending. Neurology has been reconsulted. Upon my entering the room, this afternoon, the patient was awake, tracking and squeezing my hand upon commands, with right hand. The patient received 1 u PRBC for Hgb 7.2. Post transfusion CBC pending. Plan for quantification of pleural fluid for possible thoracentesis in a.m.. 11/23: No acute events overnight. Patient remains off all sedation. Noted spontaneous eye opening, tracking following commands squeezing hands right greater than left. Neurology following plan for MRI this a.m., repeat EEG pending. Hemoglobin stable this a.m.. Chest x-ray slight improvement, plan for quantification via ultrasound of pleural effusions for possible thoracentesis today. 3 failed attempts at CPAP trials yesterday. 1548-MRI resulted findings consistent of small areas of acute cortical infarct, new since 11/09/2017. I contacted neurology, Dr. Geronimo informed of results. After Dr. Palma's review of imaging and records, it was determined most likely cardioembolic since is affecting both sides and failure with aspirin and Persantine. Ischemic stroke heparin protocol initiated. Careful review secondary to patient history of GI bleed 11/20, thought to be emanating from hemorrhoid ,however due to poor suboptimal prep, they unable to have optimal visualization per Dr. Jones. 11/24: Late entry note. Patient seen and evaluated 614. No acute events overnight. Patient continues on heparin infusion no active signs of bleeding. PTT within therapeutic range. The patient is less responsive this a.m., spontaneous eye opening, not following my commands. Not moving his extremities spontaneously for me as previously performed yesterday. tube feeds reinitiated. Chest x-ray showed further improvement in aeration of lungs the patient continues on FiO2 of 0.35. Plan for CPAP trials today. 11/25: No acute events overnight. Neurological status unchanged. Spontaneous eye opening patient continues not following any commands. Dr. Geronimo at bedside evaluating patient, no change. Patient tolerated CPAP trials approximately 12 hours yesterday. Tolerating tube feeds. Chest x-ray remains unchanged from yesterday. Hemoccult stool negative. Heparin infusion continued. family at bedside. 11/26: Late entry note. Patient seen at 1240pm. Last night the patient was noted to be continuously hyperglycemic. Levemir added to medication regimen 10 mg/day hemoglobin dropped 2 g/dL in 2 days hemoglobin now 7.7, patient to be transfused 1 unit packed red blood. No obvious signs of bleeding Hemoccult was negative. Patient continues on heparin infusion, patient may require tracheostomy and PEG in the near future . Plan to transition to p.o. anticoagulation post procedures. Neurologically the status is unchanged the patient is opens eyes spontaneously no movement of extremities upon my evaluation. Continued CPAP trials currently greater than 6 hours. 11/27: At 1000am, the patient was noted to have melena, approximated at 150 cc per RN evaluation. Heparin infusion discontinued/placed on hold at 10 AM. Stool for Hemoccult blood sent, GI was contacted and informed of the above events. Stat CT of the abdomen and pelvis with p.o. contrast ordered, results pending. Patient previously had been tolerating trickle feeds at 10 cc an hour with no residuals, after initiation of Reglan 5 mg every 8 hours yesterday. Neurologically the patient status is unchanged. Patient does have spontaneous eye opening but does not follow my commands and does not move extremities. Patient's daughter is at bedside, discussed the above events at which she was present for, she is requesting a repeat colonoscopy. I informed her that a CT of the abdomen and pelvis will be obtained, serial hemoglobin will be evaluated and if needed transfusion will be provided and gastroenterology has been contacted and will determine further management if an invasive procedure is required. Hemoglobin continues to be monitored serially, results pending for 10 AM. The patient received 1 unit packed red blood cells, and current hemoglobin trended overnight 8.9 to 8.2 this a.m., posttransfusion. 11/28: hgb continues to decline despite being off heparin. no additional GI interventions are available at this time. clearly the patient has failed anticoagulation with 2 life-threatening bleeding episodes. Although it is clear he may have additional strokes off anticoagulation, we have clear evidence that we are hurting his overall clinical care with his anticoagulation. I explained this at length to the daughter and medical decision maker. however, she insists that she would rather see him of bleeding rather than have any more strokes , and insists that "we can always keep giving him blood". I explained that blood is not without risk, and there is significant risk to anticoagulation, but she is insistent that he be given anticoagulation to prevent further strokes and she has weighed the risks and benefits after having full informed consent, insists upon us restarting the heparin drip. At her insistence, I have restarted it. In addition, I have counseled her that I do not think he will survive this hospitalization, and he will require tracheostomy for further aggressive care. She states that we are not at "day 14" on the vent, and it is not time for a tracheostomy yet. This is a second intubation and we are certainly at risk for complications from endotracheal intubation, and tracheostomy would be the most appropriate next step for this patient, but the family is refusing until WednesdayDecember 01. 11/29 Patient remains intubated, on no sedation. Afebrile. 11/30 No events overnight. Patient tolerated CPAP for most of day yesterday. Remains on Heparin drip. 12/01 Patient remains intubated tolerated CPAP for several hrs yesterday. s/p CT guided right thoracentesis with removal 500ml pleural fluid. On Heparin drip 12/02 No events overnight. Heparin drip stopped this morning for trach and PEG placement today. Afebrile. 12/03 Patient s/p trach and PEG tube placement yesterday. Had bleeding from around trach and PEG tube insertion sites Heparin drip held last night. s/p transfusion 1u PRBC yesterday Hgb 8.0 this morning. Afebrile. On no sedation. 12/04: Continues to have bruising from PEG tube insertion site. Trach site appears to have stopped. Hemoglobin 7 the same receiving 1 unit FFP and 1 PRBCs. Tube feeds of been resumed. On no sedation. 12/05: Afebrile. No further bleeding noted from the tracheostomy site. Overnight reported by the RN that the PEG tube site continues to bleed Surgicel was placed around the opening, small amount of bleeding still noted. Patient hemoglobin remained 7 patient to be transfused 1 unit PRBC's fibrinogen level pending INR within normal limits. 12/06 Patient s/p transfusion 2u PRBC yesterday Hgb 9.5 this morning from 7.2 last night. No bleeding from trach site however patient still having rectal bleeding. 12/07 No events overnight. On ventilator via trach Hgb 9.8 this morning for colonoscopy today. 12/08: seen and examined around 06:30am. no significant change in mental status. hgb 8.9 this AM. remains on heparin drip at [facility]. 12/09: no improvements or changes. very deconditioned. garcia has remained in without clear indication. had 1 episode of urinary retention, but this is a clear source of infection and an additional serious infection would certainly be life-threatening. 12/10 Patient is now on TP's with 28% FIO2, Afebrile. On Heparin drip. 12/11: remains on t-piece x > 48h. no change in neuro exam. remains on heparin drip with stable hgb 7.8. Subjective: 12/12: asked to see patient again today by the hospitalist service for change in condition. I have evaluated the patient and he does not clinically appear any different than yesterday. HR actually lower than yesterday. bladder scan suggestive of 600cc retention. patient has had urinary retention before, although has also had multiple hospital acquired urinary tract infections. risk/ benefit at this time would be in favor of serial q6h straight catheterizations. remains hemodynamically stable. some emesis today and evidence of ileus. 12/31 Reconsult for resp distress Patient is 77 yo with chronic resp failure, trach/PEG tube placement, CVA transferred to [facility] for resp distress trach changes to #6 and patient was placed on mechanical ventilation. CXR showed increasing consolidation patient was given Lasix prior to arrival to [facility]. 01/01 Patient is on ventilator via trach. Afebrile. 01/02 No events overnight. On no drips, Afebrile, CPAP 15/5 with 35% FIO2 overnight. 01/03 Remained on TP breathing comfortably. CXR shows bilateral effusions. Will get CT chest. Give single dose of lasix. ID consulted and following, no fever in 24 hours 01/04: Remains unresponsive, fever trending down. Sputum culture now growing Klebsiella and ESBL E. coli. Urine culture and wound culture also growing ESBL E. coli. Chest tube placed on the right side yesterday with 1.35 L output since placement. Urine output excellent with single dose of Lasix 2.5 L in 24 hours. No fever in 24 hours. Repeat 40 mg IV Lasix 1 [facility] RECONSULT NOTE 02/08/18: Mr. Glynn is a 77-year-old man who is known to our service. In short, he was initially admitted with possible optic neuritis versus temporal arteritis in September. Care complicated by an STEMI, multiple infections with healthcare associated pneumonia UTIs. During hospitalization he also received TPA for Stroke, MRI of the brain performed on 12/24/2017, showed infarction involving the left corpus callosum and splenium of the corpus callosum. The patient had undergone tracheostomy placement. And since last month had been on hospitalist service and off ventilator. He is currently receiving Levaquin for stenotrophomonas infection, Diflucan for candidemia. Apparently patient was noted to aspirate earlier this a.m. At 7250 AM patient was found unresponsive pulseless rhythm asystole and CPR was started. Total 3 amp of epinephrine given. Patient had a cuff less trach with evidence of aspiration, large amount of tube feeds aspirated from tracheostomy tube. This was exchanged for a 8.0 Shiley tracheostomy cuffed. With improved bag and mask ventilation and after 3 epinephrine, 1 amp of calcium, 1 amp of bicarb, patient regained ROSC SUBJ 02/09/18: Remains very critical not on any sedation he is unresponsive eyes are spontaneously open but no tracking. Very slight withdrawal to pain on the upper extremities. CT of the head unremarkable. Currently borderline hypotensive off pressors. Received 2 units of PRBC for hemoglobin 6.6 yesterday. Prognosis remained poor. Neurology consulted per family request 02/10/18: Remains critical with no improvement in neuro status or clinical status. Eyes are spontaneously open but no response to threat no tracking. Neurology consulted MRI and EEG pending at this time. Currently remains on Levophed at 1 mcg/min. Chest x-ray with bilateral infiltrates sputum culture growing GNR. Na 155. Free water flushes and half-normal saline rate increased Objective Vital Signs / I&O: Vital Signs 02/09/18 08:00 02/09/18 09:02 02/09/18 09:08 Temperature 98.2 F Pulse Rate 92 H 101 H Respiratory Rate 16 16 16 Blood Pressure 92/54 L Pulse Oximetry 97 100 02/09/18 10:00 02/09/18 12:00 02/09/18 12:05 Temperature 97.1 F L Pulse Rate 90 88 88 Respiratory Rate 16 16 Blood Pressure 99/56 L Pulse Oximetry 100 100 02/09/18 14:00 02/09/18 16:00 02/09/18 18:00 Temperature 97.1 F L Pulse Rate 91 H 92 H 96 H Respiratory Rate 16 Blood Pressure 111/61 Pulse Oximetry 100 02/09/18 20:00 02/09/18 20:53 02/09/18 22:00 Temperature 97.0 F L Pulse Rate 99 H 97 H 96 H Respiratory Rate 19 19 Blood Pressure 101/58 L Pulse Oximetry 99 99 02/10/18 00:00 02/10/18 00:01 02/10/18 02:00 Temperature 96.9 F L Pulse Rate 93 H 93 H 95 H Respiratory Rate 16 19 Blood Pressure 90/53 L Pulse Oximetry 100 100 02/10/18 03:20 02/10/18 04:00 02/10/18 06:00 Temperature 97.8 F Pulse Rate 95 H 93 H 92 H Respiratory Rate 16 16 Blood Pressure 88/54 L Pulse Oximetry 100 100 Intake & Output 02/09/18 02/10/18 02/10/18 18:59 06:59 18:59 Intake Total 1305 / 1305 1928 / 1928 Output Total 550 / 550 425 / 425 Balance 755 / 755 1503 / 1503 Weight 89 kg Intake: IV 850 / 850 1300 / 1300 KCl Inj 20 MEQ Sodium 750 / 750 Bicarbonate 8.4% Inj 50 MEQ In NS Inj 1,000 ML @ 100 mls/hr IV .CONT .[id number] EDE Rx#:[id number] 1/2 Normal Saline Inj 1,000 ML 1000 / 1000 @ 100 mls/hr IV.CONT .Q10H EDE Rx#:[id number] Diflucan 400 mg Premix Bag 200 200 / 200 ML @ 100 mls/hr IV.SIG Q24H EDE Rx#:[id number] Merrem Inj 1,000 MG In NS Inj 100 / 100 100 / 100 100 ML @ 200 mls/hr IV.SIG Q12H EDE Rx#:[id number] Tube Feeding 55 / 55 328 / 328 Water Bolus Amount 400 / 400 300 / 300 Output: Urine Amount (Catheter) 550 / 550 425 / 425 Indwelling Urethral Catheter 550 / 550 425 / 425 Other: Date of Last Bowel Movement 02/09/18 02/10/18 # Incontinent Bowel Movements 0 1 Result Diagrams: 02/10/18 05:07 02/10/18 05:07 Objective Remarks: GENERAL: Patient is 77 yo encephalopathy unresponsive on the vent. Eyes are spontaneously open SKIN: Warm and dry. 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 EYES: No scleral icterus. No injection. Pupils equal sluggish NECK: Cuffed tracheostomy tube in place. Moderate secretions CARDIOVASCULAR: S1-S2 normal no murmurs RESPIRATORY: Breath sounds equal bilaterally. Coarse wheezes and rhonchi GASTROINTESTINAL: Abdomen soft. +PEG tube. tube feeds at 10 ml per hour MUSCULOSKELETAL: No cyanosis, or edema. NEURO: Eyes are spontaneously open. No tracking no response to voice or visual threat. Slight withdrawal to the upper extremity, lower extremities remain flaccid Assessment and Plan - Assessment and Plan Plan: Assessment: Asystole/Cardiac arrest Worsening encephalopathy most likely anoxia contributing Aspiration pneumonia Acute on chronic hypoxemic and hypercapnic resp failure Combined shock, septic and cardiogenic Healthcare associated pneumonia, stenotrophomonas Candidemia UTI with ESBL E. coli Hyponatremia CVA Anemia requiring transfusion Sacral decubitus ulcer s/p NSTEMI Optic neuritis Status post tracheostomy and PEG tube placement Plan: Impression: Neuro -Acute worsening of encephalopathy secondary to systolic cardiac arrest, anoxia -CT head 02/08/[address] Pereira reconsulted per family request -MRI EEG today, pending -History of L ENID infarct. Status post systemic TPA on November 09 -On warfarin INR 3.9, put on hold, pharmacy dosing -Neuropsychology has followed. Continue Ritalin -Optic neuritis. Status post treatment with IV hydrocortisone CV: -Asystole/cardiac arrest seems secondary to hypoxia and hypercapnia from severe aspiration -Levophed to keep map above 65 -s/p IV fluid normal saline 2 L bolus, 2U PRBC -Increase half-normal saline to 150 ml per hour due to hypernatremia, increase free water flushes to 300 mL every 6 -Continue Coumadin, on hold now due to the INR 3.9 -Echo 10/19: LV systolic function is moderately reduced, EF 40-45%. Cardiology has followed Dr. Hernández -Cardura 2mg daily and Coreg 3.125mg BID on hold due to hypotension. On Lipitor 80mg qhs Pulm: -Cardiac arrest seems to be secondary to respiratory arrest. Evidence of aspiration at the time of arrest -Cuff less tracheostomy tube removed and new Shiley 8 cuffed tracheostomy placed 02/08/18 -PRVC/AC ventilation. DuoNeb every 6 hours scheduled and as needed -Failed CPAP due to apnea -ICU vent bundle. Pulm toilet, trach care. -GNR in sputum culture, On Levaquin for stenotrophomonas, Diflucan for candidemia, meropenem for previous ESBL E Coli HCAP GI -Currently tube feeds at 10 mL/h, advance as tolerated -On Pepcid 10mg BID -Free water flushes 300 mils every 6 hours -Having BMs : -Monitor renal function, electrolytes replacement per protocol -Increase half-normal saline to 150 ml per hour due to hypernatremia, increase free water flushes to 300 mL every 6 ID -Patient was receiving Levaquin for stenotrophomonas, Diflucan for candidemia -Added meropenem 02/08/18 for previous ESBL E. coli HCAP -Previous UTI with ESBL E. coli, Previous healthcare associated pneumonia with Klebsiella and ESBL E. coli -F/U blood and sputum culture and urine culture. GNR in sputum 02/08 -ID Dr. Jalloh following Skin -Sacral wound-Seen by Plastic surgery; debridement declined per patient's family -Wound care is following- apply dressings per wound management recommendations Heme: -Monitor hemoglobin closely. Status post 2 units PRBC on 02/08/2018 -Previous GI bleed; Status post EGD colonoscopy. GI has signed off, patient with healed rectal ulcers and hemorrhoids. -INR therapeutic -If recurrent anemia will reconsult GI Endo -On SSI. Levemir for glycemic control GI prophylaxis- on Pepcid DVT prophylaxis- On Coumadin hold due to INR 3.9 Patient is very critical after aspiration hypoxemic and hypercarbic respiratory failure leading to asystolic cardiac arrest. 10 minute of CPR with return of spontaneous circulation after aggressive resuscitation following CPR patient remains hypoxemic and encephalopathy. Remains unresponsive apneic. CCT 35 MIN excluding procedures Code Status: Full
[2018-02-10] MEDS: Famotidine 20 MG Tablet PO SCH ×2 (08:00→21:57)
[2018-02-10] MEDS: Insulin Glargine Inj 1,000 UNITS/10 ML Vial SQ SCH ×2 (08:01→21:55)
[2018-02-10] MEDS: Polyethylene Glycol 3350 17 GM Packet PO SCH (08:01)
[2018-02-10] MEDS: Hydrocortisone Acetate 25 MG Supp RECTAL SCH ×2 (08:01→20:28)
[2018-02-10] MEDS: Collagenase Oint 30 GM Tube TOPICAL SCH (08:02)
[2018-02-10 08:49] LABS: ABG Base Excess 0.7 mmol/L (-2-2); ABG PCO2 37 mmHg (38-42); ABG PO2 110 mmHg (61-120)
--- NOTE | 2018-02-10 10:50 | P.PNPAL ---
Reason for Visit Reason for visit: a. To assist with evaluation and management of symptoms including: pain, dyspnea, encephalopathy b. To assist medical decision maker(s) with: better understanding of current medical conditions; weighing benefits/burdens of medical treatment options; making medical treatment decisions. Subjective Subjective/Interval History: INTERVAL NOTE: Patient seen to reevaluate dyspnea, encephalopathy... The patient has been unresponsive since his cardiac arrest, and he remains on mechanical ventilation. Neurology saw the patient, an EEG was completed this morning, and the patient is going for MRI now. He's still being treated recently for candidemia. Family/Friend Interactions: Discussed with daughter at bedside; I requested that she inform the patient's that I feel the patient is dying. I also told her again that we would be able to keep him comfortable, withdraw all the machinery, and allow him to peacefully when the family feels that comfort measures are most important. Advance Directives Living Will: Never completed Health Care Surrogate: Never completed Durable Power of Child And Family Therapist: Never completed Documented care wishes:: No written documentation of health care goals/preferences. . Objective Vital Signs: Vital Signs 02/09/18 12:00 02/09/18 12:05 02/09/18 14:00 Temperature 97.1 F L Pulse Rate 88 88 91 H Respiratory Rate 16 16 Blood Pressure 99/56 L Pulse Oximetry 100 100 02/09/18 16:00 02/09/18 18:00 02/09/18 20:00 Temperature 97.1 F L 97.0 F L Pulse Rate 92 H 96 H 99 H Respiratory Rate 16 19 Blood Pressure 111/61 101/58 L Pulse Oximetry 100 99 02/09/18 20:53 02/09/18 22:00 02/10/18 00:00 Temperature 96.9 F L Pulse Rate 97 H 96 H 93 H Respiratory Rate 19 16 Blood Pressure 90/53 L Pulse Oximetry 99 100 02/10/18 00:01 02/10/18 02:00 02/10/18 03:20 Temperature Pulse Rate 93 H 95 H 95 H Respiratory Rate 19 16 Blood Pressure Pulse Oximetry 100 100 02/10/18 04:00 02/10/18 06:00 02/10/18 08:00 Temperature 97.8 F 97.4 F L Pulse Rate 93 H 92 H 93 H Respiratory Rate 16 17 Blood Pressure 88/54 L 101/56 L Pulse Oximetry 100 99 02/10/18 08:43 Temperature Pulse Rate 90 Respiratory Rate 17 Blood Pressure Pulse Oximetry Intake & Output 02/09/18 02/10/18 02/10/18 18:59 06:59 18:59 Intake Total 1305 / 1305 1928 / 1928 1000 / 1000 Output Total 550 / 550 425 / 425 Balance 755 / 755 1503 / 1503 1000 / 1000 Weight 89 kg Intake: IV 850 / 850 1300 / 1300 1000 / 1000 KCl Inj 20 MEQ Sodium 750 / 750 Bicarbonate 8.4% Inj 50 MEQ In NS Inj 1,000 ML @ 100 mls/hr IV .CONT .[id number] EDE Rx#:[id number] 1/2 Normal Saline Inj 1,000 ML 1000 / 1000 1000 / 1000 @ 150 mls/hr IV.CONT .[id number] EDE Rx#:[id number] Diflucan 400 mg Premix Bag 200 200 / 200 ML @ 100 mls/hr IV.SIG Q24H EDE Rx#:[id number] Merrem Inj 1,000 MG In NS Inj 100 / 100 100 / 100 100 ML @ 200 mls/hr IV.SIG Q12H EDE Rx#:[id number] Tube Feeding 55 / 55 328 / 328 Water Bolus Amount 400 / 400 300 / 300 Output: Urine Amount (Catheter) 550 / 550 425 / 425 Indwelling Urethral Catheter 550 / 550 425 / 425 Other: Date of Last Bowel Movement 02/09/18 02/10/18 02/10/18 # Incontinent Bowel Movements 0 1 Physical Exam: CONSTITUTIONAL/GENERAL: This is a frail elderly, ill -appearing gentleman; unresponsive. TUBES/LINES/DRAINS: peripheral IVs; SCDs, [place] catheter; tracheostomy, peg tube SKIN: Warm to touch. ENT: Unable to assess hearing. Nose without bleeding. Mucous membranes dry. Trach collar. CARDIOVASCULAR: Irregular rhythm. No audible murmur. Tachycardic. RESPIRATORY/CHEST: Symmetric, intermittently tachypneic, diminished to auscultation. Some coarse rhonchi and scattered rales are present GASTROINTESTINAL: Abdomen soft, round. Bowel sounds present. NEUROLOGICAL: With noxious stimulation, I am getting no response. PSYCHIATRIC: Unable to assess due to level of responsiveness. . Diagnostic Tests Laboratory: Laboratory Results - last 72 hr 02/07/18 02/07/1802/07/18 11:20 17:59 20:12 WBC RBC Hgb Hct MCV MCH MCHC RDW Plt Count MPV PT INR Puncture Site Patient Temperature O2 Saturation ABG pH ABG pCO2 ABG pO2 ABG HCO3 ABG O2 Content ABG Base Excess ABG Methemoglobin Stepan Test Hemoglobin Carboxyhemoglobin O2 Delivery Device Vent Setting Inspired O2 Critical Value Sodium Potassium Chloride Carbon Dioxide Anion Gap BUN Creatinine Estimated GFR POC Glucose 250 H 239 H 230 H Random Glucose Lactic Acid Calcium Magnesium Total Bilirubin AST ALT Alkaline Phosphatase Troponin I Total Protein Albumin Blood Type Antibody Screen [facility] Gel Crossmatch 02/08/18 02/08/18 02/08/18 00:14 05:55 08:05 WBC RBC Hgb Hct MCV MCH MCHC RDW Plt Count MPV PT INR Puncture Site Right radial Patient Temperature 98.6 O2 Saturation 97 ABG pH 7.12 L* ABG pCO2 62 H* ABG pO2 292 H ABG HCO3 19 L ABG O2 Content 12.9 ABG Base Excess -8.8 L ABG Methemoglobin 1.0 Stepan Test Present Hemoglobin 8.9 L Carboxyhemoglobin 1.3 O2 Delivery Device Ventilator Vent Setting Ac14/550/+8 Inspired O2 100 Critical Value Yes Sodium Potassium Chloride Carbon Dioxide Anion Gap BUN Creatinine Estimated GFR POC Glucose 179 H 188 H Random Glucose Lactic Acid Calcium Magnesium Total Bilirubin AST ALT Alkaline Phosphatase Troponin I Total Protein Albumin Blood Type Antibody Screen [facility] Gel Crossmatch 02/08/18 02/08/18 02/08/18 10:15 10:24 10:24 WBC 6.9 RBC 2.46 L Hgb 6.6 L* Hct 21.7 L MCV 88.1 MCH 27.0 MCHC 30.6 L RDW 19.3 H Plt Count 229 MPV 8.4 PT INR Puncture Site Right brachial Patient Temperature 98.6 O2 Saturation 93 ABG pH 7.38 ABG pCO2 41 ABG pO2 83 ABG HCO3 23 ABG O2 Content 12.9 ABG Base Excess -1.2 ABG Methemoglobin 1.0 Stepan Test Present Hemoglobin 9.8 L Carboxyhemoglobin 1.8 O2 Delivery Device Ventilator Vent Setting Education Diagnostician Inspired O2 50 Critical Value No Sodium 153 H Potassium 4.8 Chloride 119 H Carbon Dioxide 24.7 Anion Gap 9 BUN 80 H Creatinine 1.54 H Estimated GFR 44 L POC Glucose Random Glucose 215 H Lactic Acid Calcium 7.8 L Magnesium 2.7 H Total Bilirubin 0.3 AST 106 H ALT 89 H Alkaline Phosphatase 177 H Troponin I Total Protein 5.8 L Albumin 1.1 L Blood Type Antibody Screen [facility] Gel Crossmatch 02/08/18 02/08/18 02/08/18 10:24 12:00 12:07 WBC RBC Hgb Hct MCV MCH MCHC RDW Plt Count MPV PT INR Puncture Site Patient Temperature O2 Saturation ABG pH ABG pCO2 ABG pO2 ABG HCO3 ABG O2 Content ABG Base Excess ABG Methemoglobin Stepan Test Hemoglobin Carboxyhemoglobin O2 Delivery Device Vent Setting Inspired O2 Critical Value Sodium Potassium Chloride Carbon Dioxide Anion Gap BUN Creatinine Estimated GFR POC Glucose Random Glucose Lactic Acid 3.1 H Calcium Magnesium Total Bilirubin AST ALT Alkaline Phosphatase Troponin I 0.05 Total Protein Albumin Blood Type A Positive Antibody Screen Negative [facility] Gel Crossmatch See Detail 02/08/18 02/08/18 02/08/18 18:10 19:15 21:17 WBC RBC Hgb 8.9 L D Hct 27.8 L MCV MCH MCHC RDW Plt Count MPV PT INR Puncture Site Patient Temperature O2 Saturation ABG pH ABG pCO2 ABG pO2 ABG HCO3 ABG O2 Content ABG Base Excess ABG Methemoglobin Stepan Test Hemoglobin Carboxyhemoglobin O2 Delivery Device Vent Setting Inspired O2 Critical Value Sodium Potassium Chloride Carbon Dioxide Anion Gap BUN Creatinine Estimated GFR POC Glucose 130 H 95 Random Glucose Lactic Acid Calcium Magnesium Total Bilirubin AST ALT Alkaline Phosphatase Troponin I Total Protein Albumin Blood Type Antibody Screen [facility] Gel Crossmatch 02/09/18 02/09/18 02/09/18 01:01 05:22 05:43 WBC RBC Hgb Hct MCV MCH MCHC RDW Plt Count MPV PT 26.9 H INR 2.7 Puncture Site Patient Temperature O2 Saturation ABG pH ABG pCO2 ABG pO2 ABG HCO3 ABG O2 Content ABG Base Excess ABG Methemoglobin Stepan Test Hemoglobin Carboxyhemoglobin O2 Delivery Device Vent Setting Inspired O2 Critical Value Sodium Potassium Chloride Carbon Dioxide Anion Gap BUN Creatinine Estimated GFR POC Glucose 95 88 Random Glucose Lactic Acid Calcium Magnesium Total Bilirubin AST ALT Alkaline Phosphatase Troponin I Total Protein Albumin Blood Type Antibody Screen [facility] Gel Crossmatch 02/09/18 02/09/18 02/09/18 08:15 08:15 08:15 WBC 10.7 D RBC 2.80 L Hgb 7.8 L Hct 23.8 L MCV 85.1 MCH 27.8 MCHC 32.7 RDW 19.1 H Plt Count 183 MPV 8.2 PT INR Puncture Site Patient Temperature O2 Saturation ABG pH ABG pCO2 ABG pO2 ABG HCO3 ABG O2 Content ABG Base Excess ABG Methemoglobin Stepan Test Hemoglobin Carboxyhemoglobin O2 Delivery Device Vent Setting Inspired O2 Critical Value Sodium 155 H Potassium 3.8 D Chloride 121 H Carbon Dioxide 27.6 Anion Gap 6 BUN 81 H Creatinine 1.39 H Estimated GFR 49 L POC Glucose Random Glucose 62 L D Lactic Acid 1.7 Calcium 7.6 L Magnesium Total Bilirubin 0.4 AST 65 H ALT 66 Alkaline Phosphatase 151 H Troponin I Total Protein 5.9 L Albumin 1.0 L Blood Type Antibody Screen [facility] Gel Crossmatch 02/09/18 02/09/18 02/09/18 12:30 13:17 14:13 WBC RBC Hgb Hct MCV MCH MCHC RDW Plt Count MPV PT INR Puncture Site Patient Temperature O2 Saturation ABG pH ABG pCO2 ABG pO2 ABG HCO3 ABG O2 Content ABG Base Excess ABG Methemoglobin Stepan Test Hemoglobin Carboxyhemoglobin O2 Delivery Device Vent Setting Inspired O2 Critical Value Sodium Potassium Chloride Carbon Dioxide Anion Gap BUN Creatinine Estimated GFR POC Glucose 62 L 89 107 Random Glucose Lactic Acid Calcium Magnesium Total Bilirubin AST ALT Alkaline Phosphatase Troponin I Total Protein Albumin Blood Type Antibody Screen [facility] Gel Crossmatch 02/09/18 02/09/18 02/09/18 14:55 17:43 19:48 WBC RBC Hgb Hct MCV MCH MCHC RDW Plt Count MPV PT INR Puncture Site Patient Temperature O2 Saturation ABG pH ABG pCO2 ABG pO2 ABG HCO3 ABG O2 Content ABG Base Excess ABG Methemoglobin Stepan Test Hemoglobin Carboxyhemoglobin O2 Delivery Device Vent Setting Inspired O2 Critical Value Sodium 156 H* Potassium 3.6 Chloride 120 H Carbon Dioxide 27.1 Anion Gap 9 BUN 79 H Creatinine 1.41 H Estimated GFR 49 L POC Glucose 92 95 Random Glucose 89 Lactic Acid Calcium 7.7 L Magnesium Total Bilirubin 0.3 AST 60 H ALT 62 Alkaline Phosphatase 144 H Troponin I Total Protein 5.8 L Albumin 1.0 L Blood Type Antibody Screen [facility] Gel Crossmatch 02/09/18 02/10/18 02/10/18 23:07 05:07 05:07 WBC 10.2 RBC 2.75 L Hgb 7.6 L Hct 23.6 L MCV 85.8 MCH 27.7 MCHC 32.3 RDW 19.5 H Plt Count 180 MPV 8.3 PT 39.4 H D INR 3.9 Puncture Site Patient Temperature O2 Saturation ABG pH ABG pCO2 ABG pO2 ABG HCO3 ABG O2 Content ABG Base Excess ABG Methemoglobin Stepan Test Hemoglobin Carboxyhemoglobin O2 Delivery Device Vent Setting Inspired O2 Critical Value Sodium Potassium Chloride Carbon Dioxide Anion Gap BUN Creatinine Estimated GFR POC Glucose 73 Random Glucose Lactic Acid Calcium Magnesium Total Bilirubin AST ALT Alkaline Phosphatase Troponin I Total Protein Albumin Blood Type Antibody Screen [facility] Gel Crossmatch 02/10/18 02/10/18 02/10/18 05:07 05:47 08:42 WBC RBC Hgb Hct MCV MCH MCHC RDW Plt Count MPV PT INR Puncture Site Right brachial Patient Temperature 98.6 O2 Saturation 96 ABG pH 7.44 H ABG pCO2 37 L ABG pO2 110 ABG HCO3 24 ABG O2 Content 13.5 ABG Base Excess 0.7 ABG Methemoglobin 0.8 Stepan Test Present Hemoglobin 9.8 L Carboxyhemoglobin 1.5 O2 Delivery Device Ventilator Vent Setting Inspired O2 40 Critical Value No Sodium 155 H Potassium 3.5 Chloride 120 H Carbon Dioxide 26.6 Anion Gap 8 BUN 80 H Creatinine 1.41 H Estimated GFR 49 L POC Glucose 124 H Random Glucose 101 Lactic Acid Calcium 7.5 L Magnesium 2.3 Total Bilirubin 0.3 AST 65 H ALT 57 Alkaline Phosphatase 155 H Troponin I Total Protein 5.9 L Albumin 1.0 L Blood Type Antibody Screen [facility] Gel Crossmatch Result Diagrams: 02/10/18 05:07 02/10/18 05:07 Microbiology: Microbiology 02/08/18 12:00 Gram Stain - Final Sputum - Endotracheal Sputum Culture - Final Klebsiella pneumoniae 02/08/18 12:00 Urine Culture - Final Catheterized Urine No growth in 48 hours 02/08/18 10:24 Aerobic Blood Culture - Preliminary Blood - Peripheral No growth in 1 day Anaerobic Blood Culture - Preliminary No growth in 2 days 02/08/18 13:10 Aerobic Blood Culture - Preliminary Blood - Peripheral No growth in 1 day Anaerobic Blood Culture - Final QNS - See aerobic report. 02/08/18 13:15 Blood Fungal Culture - Final Blood - Peripheral 01/04/18 12:45 Acid Fast Bacilli Smear - Final Fluid - Pleural fluid No acid fast bacilli seen Mycobacterial Culture - Preliminary No growth in 5 weeks 01/03/18 17:00 Acid Fast Bacilli Smear - Final Fluid - Pleural fluid No acid fast bacilli seen Mycobacterial Culture - Preliminary No growth in 5 weeks Procedures: * 11/09/17 - Intubation * 11/11/17 - Extubated * 11/18/17 - Re-intubated * Tracheostomy * PEG tube * Bilateral chest tubes for pleural effusions 01/14/18 Assessment and Plan - Disease Oriented Problem List (1) Aspiration pneumonia Comment: Recurrent 02/08/18, with cardiac arrest (2) Cardiac arrest Comment: 02/08/18, with apparent hypoxic brain injury (3) CVA (cerebral vascular accident) (4) Diabetes (5) Anemia (6) Hypoalbuminemia (7) Wound of sacral region (8) Fungemia (9) Carotid stenosis (10) Debility Pertinent Non-Medical Issues: Psychosocial: Patient was born and raised in [place], he lives in [place]. Primary language is Faroese. Patient is , retired, has 2 daughters. Highest level of education is high school. Spiritual: [employer]. Spirituality and prayer have been very important for the patient's family. Legal: No known advanced directives have been completed. Ethical issues impacting care: Patient incapacitated for medical decision- making. Important Contacts: Family providing son-in-law's contact information: Avtar Ashraf . -pending information Daughter Alexandra -pending contact information Daughter Lanette -not very forthcoming with contact info. State "I am always here." Prognosis: Patient with a complicated prolonged hospitalization with multiple complications including recent cardiac arrest and apparent anoxic brain injury. He will in the hospital. Patient is certainly eligible for hospice services at such time that the medical decision makers are ready to opt for comfort oriented care. . Code Status: Full Code Plan: ==CODE STATUS: FULL CODE ==HEALTHCARE DECISION-MAKING: . Patient incapacitated for medical decision- making secondary to clinical condition. He will not recover that capacity. has indicated she wants her daughters to manage medical decisions especially Lanette. does not want to participate in medical decision making. ==GOALS OF CARE: 02/10/18: Discussed with daughter at bedside; I requested that she inform the patient's that I feel the patient is dying. I also told her again that we would be able to keep him comfortable, withdraw all the machinery, and allow him to peacefully when the family feels that comfort measures are most important. ==SYMPTOMS: = * Debility: Multifactorial secondary to multiple acute on chronic illnesses and prolonged hospitalization, severe hypoalbuminemia. Remains critically ill. * Encephalopathy probably multi-factorial -- stroke, cardiac arrest with CPR, infection, anoxic brain injury, prolonged hospitalization, etc. * Pain: Secondary to lines, prolonged bedbound status, wounds, catheter, vascular access lines, etc. No further recommendations at this time. * Dyspnea: Managed with mechanical ventilation. Recurrent aspiration 02/08/18 == Disposition --it is apparent that the patient will not survive this hospitalization. ==Palliative care will continue to follow to assist with symptom management and to further clarify goals of medical treatment as the clinical course evolves. . . Time Spent Total Floor Time (mins): 38 Face to Face Time (mins): 20 >50% Time in Counseling or Coordination of Care: Yes Attestation Attestation: To help prompt me to consider important information that might be impacting today's encounter and assessment, information from prior notes written by myself or my colleagues may have been "brought forward" into today's note. My signature on this note, however, is an attestation that I personally performed the exam, history, and/or decision-making noted today, and, unless otherwise indicated, the interactions with patient, family, and staff as well as the review of records all occurred today. I also attest that the listed assessment and stated plan reflect my best clinical judgment today based on the combination of historical information, prior notes, and today's exam/ interactions. When time spent is documented, it refers only to time spent today by the signer, or if indicated, combined time spent today by collaborating physician/nurse practitioner.
--- NOTE | 2018-02-10 12:07 | MR ---
EXAM DATE: 02/10/2018 11:49 AM EDT AGE/SEX: 77 years / Male INDICATIONS: . Nonresponsive after code. CLINICAL DATA: This is the patient's subsequent encounter. Patient reports that signs and symptoms h ave been present for 4 - 6 months and indicates a pain score of Nonresponsive. MEDICAL/SURGICAL HISTORY: Myocardial infarction. Coronary artery stent. Plate in left leg. COMPARISON: No prior exams available for comparison. TECHNIQUE: Multiplanar, multisequence examination of the brain was performed without contrast. FINDINGS: There is extensive cortical volume loss. Moderate chronic ischemic changes in the periventricular whi te matter. No recent infarct on diffusion-weighted images. No mass effect or midline shift. No hydroc ephalus. Mucosal thickening in the mastoids. CONCLUSION: 1. No acute findings. Extensive cortical volume loss. Moderate white matter ischemic changes. No rec ent infarct. Electronically signed by: Deo Lau MD 02/10/2018 12:06 PM EDT
[2018-02-10] MEDS: levoFLOXacin 750 MG Tablet PO SCH (12:51)
--- NOTE | 2018-02-10 18:10 | P.PNNEU ---
Subjective Subjective Comments: No new sx Active Medications: Active Medications Acetaminophen (Tylenol) 650 mg PO Q6H PRN PRN Reason: FEVER/PAIN SCALE 1 TO 2 Last Admin: 01/31/18 20:49 Dose: 650 mg Al Hydroxide/Mg Hydroxide (Milk Of Ayah Liq) 30 ml PO Q12H PRN PRN Reason: Mild constipation Albuterol (Duoneb Neb ([facility]ie)) 1 ampul NEB Q4HR NEB [facility] Last Admin: 02/10/18 16:26 Dose: 1 ampul Albuterol (Duoneb Neb (Prn)) 1 ampul NEB Q2HR NEB PRN PRN Reason: SHORTNESS OF BREATH Last Admin: 01/23/18 01:58 Dose: 1 ampul Atorvastatin Calcium (Llipitor) 80 mg PO HS [facility] Last Admin: 02/09/18 20:08 Dose: 80 mg Carvedilol (Coreg) 3.125 mg G-TUBE BID [facility] Last Admin: 02/07/18 20:37 Dose: 3.125 mg Cod Liver Oil/Zinc Oxide (Desitin 40% Oint) 1 applicatio TOPICAL UNSCH PRN PRN Reason: DIAPER RASH Collagenase (Santyl Oint) 1 applicatio TOPICAL DAILY [facility] Last Admin: 02/10/18 08:02 Dose: 1 applicatio Dextrose (D50w Vial) 25 ml IV.PUSH UNSCH PRN PRN Reason: HYPOGLYCEMIA-SEE COMMENTS Last Admin: 02/09/18 13:20 Dose: 25 ml Doxazosin Mesylate (Cardura) 4 mg PO DAILY [facility] Last Admin: 12/31/17 09:52 Dose: Not Given Famotidine (Pepcid) 10 mg PO BID [facility] Last Admin: 02/10/18 08:00 Dose: 10 mg Glucagon (Glucagon Inj) 1 mg OTHER UNSCH PRN PRN Reason: HYPOGLYCEMIA - SEE COMMENTS Heparin Sodium (Porcine) (Heparin Inj) 1,000 units OTHER WITH DIALYSIS PRN PRN Reason: SEE LABEL COMMENTS Hydrocortisone Acetate (Hemorrhoidal Hc Supp) 25 mg RECTAL BID [facility] Last Admin: 02/10/18 08:01 Dose: Not Given Hydromorphone HCl (Dilaudid Pf Inj) 0.5 mg IV.PUSH Q4H PRN PRN Reason: pain 8-10 or not taking po Last Admin: 01/09/18 02:47 Dose: 0.5 mg Hyoscyamine (Levsin Liq) 0.125 mg SL Q4H PRN PRN Reason: SECRETIONS Last Admin: 01/13/18 00:42 Dose: 0.125 mg Pharmacy Profile Note (Coumadin Consult Pharmacy) mls @ 0 mls/hr OTHER UNSCH [facility] Norepinephrine Bitartrate 4 mg (/ Sodium Chloride) 250 mls @ 7.5 mls/hr IV.SIG TITRATE PRN; Protocol PRN Reason: Per Protocol Last Titration: 02/10/18 16:45 Dose: 0 mcg/min, 0 mls/hr Meropenem 1,000 mg/ Sodium (Chloride) 100 mls @ 200 mls/hr IV.SIG Q12H [facility] Last Infusion: 02/10/18 13:25 Dose: Infused Sodium Chloride (1/2 Normal Saline Inj) 1,000 mls @ 150 mls/hr IV.CONT .Q6H40M [facility] Last Admin: 02/10/18 17:07 Dose: 150 mls/hr Fluconazole (Diflucan 400 Mg Premix Bag) 200 mls @ 100 mls/hr IV.SIG Q24H [facility] Last Infusion: 02/09/18 22:13 Dose: Infused Insulin Glargine (Lantus Inj) 25 units SQ BID [facility] Last Admin: 02/10/18 08:01 Dose: Not Given Insulin Human Regular (Novolin R Supplemental Scale) 0 units SQ Q6HR [facility]; Protocol Last Admin: 02/10/18 17:06 Dose: 2 units Levofloxacin (Levaquin) 750 mg PO Q48H [facility] Last Admin: 02/10/18 12:51 Dose: 750 mg Methylphenidate HCl (Ritalin) 10 mg PO BID@0800,1200 [facility] Last Admin: 02/10/18 12:51 Dose: 10 mg Miscellaneous (Pill Splitter) 1 each OTHER UNSCH PRN PRN Reason: SEE LABEL COMMENTS Ondansetron HCl (Zofran Inj) 4 mg IV.PUSH Q6H PRN PRN Reason: NAUSEA OR VOMITING Polyethylene Glycol (Miralax) 17 gm PO DAILY [facility] Last Admin: 02/10/18 08:01 Dose: Not Given Pramoxine HCl (Proctofoam) 1 applicatio RECTAL Q6HR [facility] Last Admin: 02/10/18 17:12 Dose: 1 applicatio Sennosides (Senokot) 17.2 mg PO Q12H PRN PRN Reason: Moderate constipation Sodium Chloride (Ns Flush) 2 ml IV.FLUSH UNSCH PRN PRN Reason: FLUSH AFTER USING IV ACCESS Last Admin: 01/10/18 08:18 Dose: 2 ml Sodium Chloride (Ns Flush) 2 ml IV.FLUSH BID [facility] Last Admin: 02/10/18 08:02 Dose: 2 ml Sodium Chloride (Ns Flush) 10 ml IV.FLUSH UNSCH PRN PRN Reason: SEE LABEL COMMENTS Last Admin: 01/11/18 20:49 Dose: 10 ml Terbutaline Sulfate (Brethine Inj) 1 mg SQ UNSCH PRN PRN Reason: For Extravasation Warfarin Sodium (Coumadin) 1 mg PO DAILY@1600 [facility] Last Admin: 02/07/18 16:10 Dose: 1 mg Allergies/Adverse Reactions: Allergies Allergy/AdvReac Type Severity Reaction Status Date / Time Glucerna 1.5 AdvReac Vomiting Uncoded 02/09/18 12:04 Physical Exam Vital signs: Vital Signs 02/09/18 20:00 02/09/18 20:53 02/09/18 22:00 Temperature 97.0 F L Pulse Rate 99 H 97 H 96 H Respiratory Rate 19 19 Blood Pressure 101/58 L Pulse Oximetry 99 99 02/10/18 00:00 02/10/18 00:01 02/10/18 02:00 Temperature 96.9 F L Pulse Rate 93 H 93 H 95 H Respiratory Rate 16 19 Blood Pressure 90/53 L Pulse Oximetry 100 100 02/10/18 03:20 02/10/18 04:00 02/10/18 06:00 Temperature 97.8 F Pulse Rate 95 H 93 H 92 H Respiratory Rate 16 16 Blood Pressure 88/54 L Pulse Oximetry 100 100 02/10/18 08:00 02/10/18 08:43 02/10/18 10:00 Temperature 97.4 F L Pulse Rate 93 H 90 88 Respiratory Rate 17 17 Blood Pressure 101/56 L Pulse Oximetry 99 02/10/18 10:30 02/10/18 12:00 02/10/18 12:07 Temperature 97.6 F Pulse Rate 86 Respiratory Rate 13 18 Blood Pressure 94/60 L Pulse Oximetry 100 98 98 02/10/18 12:10 02/10/18 14:00 02/10/18 16:00 Temperature 97.4 F L Pulse Rate 85 81 80 Respiratory Rate 20 14 Blood Pressure 105/63 Pulse Oximetry 96 02/10/18 16:27 Temperature Pulse Rate 82 Respiratory Rate 15 Blood Pressure Pulse Oximetry 97 Intake & Output 02/09/18 02/10/18 02/10/18 18:59 06:59 18:59 Intake Total 1305 / 1305 1928 / 1928 1999 Output Total 550 / 550 425 / 425 Balance 755 / 755 1503 / 1503 1999 Weight 89 kg Intake: IV 850 / 850 1300 / 1300 1999 KCl Inj 20 MEQ Sodium 750 / 750 Bicarbonate 8.4% Inj 50 MEQ In NS Inj 1,000 ML @ 100 mls/hr IV .CONT .[id number] [facility] Rx#:[id number] 1/2 Normal Saline Inj 1,000 ML 1000 / 1000 1900 / 1900 @ 150 mls/hr IV.CONT .Q6H40M [facility] Rx#:[id number] Diflucan 400 mg Premix Bag 200 200 / 200 ML @ 100 mls/hr IV.SIG Q24H [facility] Rx#:[id number] Merrem Inj 1,000 MG In NS Inj 100 / 100 100 / 100 100 / 100 100 ML @ 200 mls/hr IV.SIG Q12H [facility] Rx#:[id number] Tube Feeding 55 / 55 328 / 328 Water Bolus Amount 400 / 400 300 / 300 Output: Urine Amount (Catheter) 550 / 550 425 / 425 Indwelling Urethral Catheter 550 / 550 425 / 425 Other: Date of Last Bowel Movement 02/09/18 02/10/18 02/10/18 # Incontinent Bowel Movements 0 1 - Routine Neurological Exam nonresponsive Pupils sluggish MOTOR--no spontaneous movement no posturing - Urinary Catheter Management Straight Cath placed during this visit: yes Urethral indwelling: Yes Reason for continuing: Acute urinary retention Insertion date: 01/21/18 Insertion time: 08:00 Indwelling Urethral Catheter Cath placed during this visit: yes, but has since been removed by the nurse Urethral indwelling: Yes Reason for continuing: Chronic Urinary Retention Insertion date: 01/21/18 Insertion time: 16:18 Removal date: 01/20/18 Removal time: 15:15 Objective Radiology Results: MRI brain--chronic changes. No diffusion abnormalities EEG---generalized slowing Laboratory Results - last 24 hr 02/09/18 02/09/18 02/10/18 19:48 23:07 05:07 WBC RBC Hgb Hct MCV MCH MCHC RDW Plt Count MPV PT 39.4 H D INR 3.9 Puncture Site Patient Temperature O2 Saturation ABG pH ABG pCO2 ABG pO2 ABG HCO3 ABG O2 Content ABG Base Excess ABG Methemoglobin Stepan Test Hemoglobin Carboxyhemoglobin O2 Delivery Device Vent Setting Inspired O2 Critical Value Sodium Potassium Chloride Carbon Dioxide Anion Gap BUN Creatinine Estimated GFR POC Glucose 95 73 Random Glucose Calcium Magnesium Total Bilirubin AST ALT Alkaline Phosphatase Total Protein Albumin 02/10/18 02/10/18 02/10/18 05:07 05:07 05:47 WBC 10.2 RBC 2.75 L Hgb 7.6 L Hct 23.6 L MCV 85.8 MCH 27.7 MCHC 32.3 RDW 19.5 H Plt Count 180 MPV 8.3 PT INR Puncture Site Patient Temperature O2 Saturation ABG pH ABG pCO2 ABG pO2 ABG HCO3 ABG O2 Content ABG Base Excess ABG Methemoglobin Stepan Test Hemoglobin Carboxyhemoglobin O2 Delivery Device Vent Setting Inspired O2 Critical Value Sodium 155 H Potassium 3.5 Chloride 120 H Carbon Dioxide 26.6 Anion Gap 8 BUN 80 H Creatinine 1.41 H Estimated GFR 49 L POC Glucose 124 H Random Glucose 101 Calcium 7.5 L Magnesium 2.3 Total Bilirubin 0.3 AST 65 H ALT 57 Alkaline Phosphatase 155 H Total Protein 5.9 L Albumin 1.0 L 02/10/18 02/10/18 02/10/18 08:42 12:56 13:10 WBC RBC Hgb Hct MCV MCH MCHC RDW Plt Count MPV PT INR Puncture Site Right brachial Patient Temperature 98.6 O2 Saturation 96 ABG pH 7.44 H ABG pCO2 37 L ABG pO2 110 ABG HCO3 24 ABG O2 Content 13.5 ABG Base Excess 0.7 ABG Methemoglobin 0.8 Stepan Test Present Hemoglobin 9.8 L Carboxyhemoglobin 1.5 O2 Delivery Device Ventilator Vent Setting Inspired O2 40 Critical Value No Sodium 153 H Potassium Chloride Carbon Dioxide Anion Gap BUN Creatinine Estimated GFR POC Glucose 144 H Random Glucose Calcium Magnesium Total Bilirubin AST ALT Alkaline Phosphatase Total Protein Albumin 02/10/18 16:39 WBC RBC Hgb Hct MCV MCH MCHC RDW Plt Count MPV PT INR Puncture Site Patient Temperature O2 Saturation ABG pH ABG pCO2 ABG pO2 ABG HCO3 ABG O2 Content ABG Base Excess ABG Methemoglobin Stepan Test Hemoglobin Carboxyhemoglobin O2 Delivery Device Vent Setting Inspired O2 Critical Value Sodium Potassium Chloride Carbon Dioxide Anion Gap BUN Creatinine Estimated GFR POC Glucose 154 H Random Glucose Calcium Magnesium Total Bilirubin AST ALT Alkaline Phosphatase Total Protein Albumin Microbiology 02/08/18 13:10 Aerobic Blood Culture - Preliminary Blood - Peripheral No growth in 2 days Anaerobic Blood Culture - Final QNS - See aerobic report. 02/08/18 10:24 Aerobic Blood Culture - Preliminary Blood - Peripheral No growth in 2 days Anaerobic Blood Culture - Preliminary No growth in 2 days 02/08/18 12:00 Gram Stain - Final Sputum - Endotracheal Sputum Culture - Final Klebsiella pneumoniae 02/08/18 12:00 Urine Culture - Final Catheterized Urine No growth in 48 hours Review/Management - Diagnosis (1) CVA (cerebral vascular accident) Code(s): I63.9 - Cerebral infarction, unspecified Status: Acute Current Visit: Yes (2) CVA (cerebral vascular accident) Code(s): I63.9 - Cerebral infarction, unspecified Status: Acute Current Visit: Yes (3) Anoxic encephalopathy Code(s): G93.1 - Anoxic brain damage, not elsewhere classified Status: Acute Current Visit: Yes - Review/Management Plan: anoxic encephalopathy. Prognosis guarded. Discussed with family
[2018-02-11] MEDS: Sodium Chloride 0.45 % Inj 1,000 ML IV.CONT SCH ×4 (01:05→18:28)
[2018-02-11] MEDS: Insulin NovoLIN Regular Correctional Sugar Inj SQ SCH ×4 (01:06→19:00)
[2018-02-11 04:16] LABS: Hematocrit 22.5 % (39.0-51.0); Hemoglobin 7.2 gm/dL (13.0-17.0); Mean Corpuscular HGB Conc 31.8 % (32.0-36.0); Mean Corpuscular Hemoglobin 27.3 pg (27.0-34.0); Mean Corpuscular Volume 85.7 fL (80.0-100.0); Mean Platelet Volume 8.3 fL (7.0-11.0); Platelet Count 177 th/mm3 (150-450); Red Blood Count 2.63 mil/mm3 (4.50-5.90); Red Cell Distribution Width 19.5 % (11.6-17.2); White Blood Count 6.7 th/mm3 (4.0-11.0)
[2018-02-11 04:32] LABS: INR 3.2 Ratio; Prothrombin Time 32.6 sec (9.8-11.6)
[2018-02-11 04:56] LABS: Calcium 7.4 mg/dL (8.5-10.1); Carbon Dioxide 25.7 meq/L (21.0-32.0); Potassium 3.3 meq/L (3.5-5.1); Total Protein 5.8 g/dL (6.4-8.2)
--- NOTE | 2018-02-11 06:56 | XR ---
EXAM DATE: 02/11/2018 6:46 AM EDT AGE/SEX: 77 years / Male INDICATIONS: Shortness of breath. Possible respiratory disease. CLINICAL DATA: This is the patient's subsequent encounter. Patient reports that signs and symptoms h ave been present for 3 months and indicates a pain score of Nonresponsive. MEDICAL/SURGICAL HISTORY: . Chronic obstructive pulmonary disease. Cardiovascular disease. Diab etes. . Coronary artery stent. Tracheostomy COMPARISON: C, CHEST 1V SINGLE AP, 02/10/2018. . FINDINGS: There is tracheostomy tube in place. There is a right subclavian line in good position. The heart siz e is normal. The lungs demonstrate diffuse mixed interstitial and alveolar density. There are bilater al mild pleural effusions. CONCLUSION: Diffuse consolidation likely related to edema. Mild bilateral pleural effusions being worse on the left. Electronically signed by: Antolin Botello MD 02/11/2018 6:55 AM EDT
[2018-02-11] MEDS: Famotidine 20 MG Tablet PO SCH ×2 (08:28→21:16)
[2018-02-11] MEDS: Hydrocortisone Acetate 25 MG Supp RECTAL SCH ×2 (09:06→21:17)
[2018-02-11] MEDS: Polyethylene Glycol 3350 17 GM Packet PO SCH (09:07)
[2018-02-11] MEDS: Collagenase Oint 30 GM Tube TOPICAL SCH (09:07)
[2018-02-11] MEDS: Insulin Glargine Inj 1,000 UNITS/10 ML Vial SQ SCH ×2 (10:13→21:15)
--- NOTE | 2018-02-11 10:52 | P.PNCC ---
Subjective Subjective Remarks/Hospital Course: This is a 77-year-old male who initially presented with vision changes and concern for optic neuritis versus temporal arteritis. His initial presentation was on 10/14. His hospital course has been complicated by an NSTEMI with troponins which peaked at 10, ESBL E. coli urinary tract infection, rectal bleeding suspected from bleeding hemorrhoids, acute anemia secondary to blood loss with hemoglobin started around 14 and is trended down to 9.7 this morning. On his initial MRA he was found to have significant atherosclerotic cerebrovascular disease in all vascular territories. Today, he had an acute mental status change and was obtunded. Rapid response and stroke alert was called. His initial NIH stroke scale was 22. Dr. goldstein had conversations with Dr. Ulloa and neurology as well as Dr. sierra with gastroenterology. GI feels comfortable with giving thrombolytics and neurology feels strongly that this patient would benefit from systemic IV TPA therapy. I evaluated the patient on arrival to the intensive care unit. The patient is arousable, but very somnolent. He is Lithuanian speaking, and it is very difficult to ascertain whether or not he can follow commands. He does move all extremities spontaneously, although it appears that his left side is weaker than his right. He has noted facial droop. CT head is negative for acute hemorrhage. CTA head neck is significant for the same multivessel cerebrovascular disease that was present on admission. Given the high-risk nature of the stroke as well as his acute anemia this hospitalization, in preparation for giving emergent IV systemic TPA, I placed an arterial line as well as a large-bore peripheral IV so that we could draw serial labs, monitor his hemoglobin, and give blood products if necessary. I also had an additional discussion with the family where I reconfirmed that their goals were aggressive and they fully understood the significant risk of life-threatening hemorrhage associated with systemic TPA in a patient with new anemia and suspected GI bleeding. The family expressed understanding of his condition and understanding of the heightened risk of life-threatening bleeding, but still urged that we needed to get TPA. Immediately after giving IV TPA, patient had a tonic clonic seizure (witnessed on EEG) and became obtunded with acute hypoxic and hypercarbic respiratory failure and was emergently intubated (see separate procedure note for details). 11/10: remains intubated. encephalopathy persists. hgb stable s/p TPA. ~350cc bloody OG tube output, but this is slowing down. 11/11: more awake. on SBT. follows commands. 11/12: remains extubated. off vasopressors. no changes in mental status. 11/18/17 CCM Reconsult Note Patient was transferred to ICU today after a Halicat was called for AMS, hypoxia , high fever. Apparently patient was lethargic since a.m. in the last hour had been unresponsive and hence Halicat was called. Patient had a fever of 101.4 in a.m., T-max is 101.6. I immediately evaluated the patient in the ICU. Patient is completely unresponsive, oxygen saturation 87% on 4 L nasal cannula. Hypopneic. No response to deep pain. Patient was confirmed to be a full code and I proceeded with endotracheal intubation place him on mechanical ventilation as patient was not protecting airway. More history was obtained from discussion with ID Dr. Jalloh. She indicated patient had been increasingly lethargic with fever and also had urinary retention.She has discontinued Ertapenem, and started on meropenem, vancomycin and micafungin. Cultures have been sent and are pending now. Source of sepsis appears to be aspiration pneumonia versus UTI. Repeat UA and panculture pending at this time. Patient was borderline hypotensive prior to intubation and I have started on Levophed to avoid hypotension post intubation. Receiving 1 L normal saline bolus now, give additional fluid bolus if patient requires continued Levophed will place central line 11/19: remains intubated. holding aggrenox for possible thoracentesis today, but family hesitant to consent with concerns over bleeding risk. Cr remains elevated. discussion with Dr. Bernal, unlikely to benefit currently from draining effusion, so at his recommendation, will proceed with attempted weaning from mechanical ventilation and treat effusion conservatively. 11/20: Overnight /early this a.m. ,the patient was noted to have large amount of rectal bleeding. Aggrenox held since 11/18, 2/2 reintubation. Type and screen ordered. Serial H&H currently be performed. Hemodynamically stable. GI has been reconsulted. Protonix previously given PRN, will schedule BID. Patient was reintubated emergently 11/18, plan for continue CPAP trials. Tube feedings until evaluation by GI. ASA placed on hold , in the setting of GI bleeding. 11/21: EGD and colonoscopy performed yesterday. Patient was noted to be constipated ,disimpacted per GI. Patient noted to have hemorrhoids which was clipped. No further bleeding throughout the night. Chest x-ray showed improvement. CPAP trials initiated this a.m.. ASA 81 mg resumed. 11/22: Patient tolerated CPAP trials approximately 13 hours yesterday. Initiation of tube feeds per GI yesterday, no residuals. This am , family concerned patient not responsive. CT brain , ammonia level and EEG pending. Neurology has been reconsulted. Upon my entering the room, this afternoon, the patient was awake, tracking and squeezing my hand upon commands, with right hand. The patient received 1 u PRBC for Hgb 7.2. Post transfusion CBC pending. Plan for quantification of pleural fluid for possible thoracentesis in a.m.. 11/23: No acute events overnight. Patient remains off all sedation. Noted spontaneous eye opening, tracking following commands squeezing hands right greater than left. Neurology following plan for MRI this a.m., repeat EEG pending. Hemoglobin stable this a.m.. Chest x-ray slight improvement, plan for quantification via ultrasound of pleural effusions for possible thoracentesis today. 3 failed attempts at CPAP trials yesterday. 1548-MRI resulted findings consistent of small areas of acute cortical infarct, new since 11/09/2017. I contacted neurology, Dr. Geronimo informed of results. After Dr. Palma's review of imaging and records, it was determined most likely cardioembolic since is affecting both sides and failure with aspirin and Persantine. Ischemic stroke heparin protocol initiated. Careful review secondary to patient history of GI bleed 11/20, thought to be emanating from hemorrhoid ,however due to poor suboptimal prep, they unable to have optimal visualization per Dr. Jones. 11/24: Late entry note. Patient seen and evaluated 614. No acute events overnight. Patient continues on heparin infusion no active signs of bleeding. PTT within therapeutic range. The patient is less responsive this a.m., spontaneous eye opening, not following my commands. Not moving his extremities spontaneously for me as previously performed yesterday. tube feeds reinitiated. Chest x-ray showed further improvement in aeration of lungs the patient continues on FiO2 of 0.35. Plan for CPAP trials today. 11/25: No acute events overnight. Neurological status unchanged. Spontaneous eye opening patient continues not following any commands. Dr. Geronimo at bedside evaluating patient, no change. Patient tolerated CPAP trials approximately 12 hours yesterday. Tolerating tube feeds. Chest x-ray remains unchanged from yesterday. Hemoccult stool negative. Heparin infusion continued. family at bedside. 11/26: Late entry note. Patient seen at 1240pm. Last night the patient was noted to be continuously hyperglycemic. Levemir added to medication regimen 10 mg/day hemoglobin dropped 2 g/dL in 2 days hemoglobin now 7.7, patient to be transfused 1 unit packed red blood. No obvious signs of bleeding Hemoccult was negative. Patient continues on heparin infusion, patient may require tracheostomy and PEG in the near future . Plan to transition to p.o. anticoagulation post procedures. Neurologically the status is unchanged the patient is opens eyes spontaneously no movement of extremities upon my evaluation. Continued CPAP trials currently greater than 6 hours. 11/27: At 1000am, the patient was noted to have melena, approximated at 150 cc per RN evaluation. Heparin infusion discontinued/placed on hold at 10 AM. Stool for Hemoccult blood sent, GI was contacted and informed of the above events. Stat CT of the abdomen and pelvis with p.o. contrast ordered, results pending. Patient previously had been tolerating trickle feeds at 10 cc an hour with no residuals, after initiation of Reglan 5 mg every 8 hours yesterday. Neurologically the patient status is unchanged. Patient does have spontaneous eye opening but does not follow my commands and does not move extremities. Patient's daughter is at bedside, discussed the above events at which she was present for, she is requesting a repeat colonoscopy. I informed her that a CT of the abdomen and pelvis will be obtained, serial hemoglobin will be evaluated and if needed transfusion will be provided and gastroenterology has been contacted and will determine further management if an invasive procedure is required. Hemoglobin continues to be monitored serially, results pending for 10 AM. The patient received 1 unit packed red blood cells, and current hemoglobin trended overnight 8.9 to 8.2 this a.m., posttransfusion. 11/28: hgb continues to decline despite being off heparin. no additional GI interventions are available at this time. clearly the patient has failed anticoagulation with 2 life-threatening bleeding episodes. Although it is clear he may have additional strokes off anticoagulation, we have clear evidence that we are hurting his overall clinical care with his anticoagulation. I explained this at length to the daughter and medical decision maker. however, she insists that she would rather see him of bleeding rather than have any more strokes , and insists that "we can always keep giving him blood". I explained that blood is not without risk, and there is significant risk to anticoagulation, but she is insistent that he be given anticoagulation to prevent further strokes and she has weighed the risks and benefits after having full informed consent, insists upon us restarting the heparin drip. At her insistence, I have restarted it. In addition, I have counseled her that I do not think he will survive this hospitalization, and he will require tracheostomy for further aggressive care. She states that we are not at "day 14" on the vent, and it is not time for a tracheostomy yet. This is a second intubation and we are certainly at risk for complications from endotracheal intubation, and tracheostomy would be the most appropriate next step for this patient, but the family is refusing until WednesdayDecember 01. 11/29 Patient remains intubated, on no sedation. Afebrile. 11/30 No events overnight. Patient tolerated CPAP for most of day yesterday. Remains on Heparin drip. 12/01 Patient remains intubated tolerated CPAP for several hrs yesterday. s/p CT guided right thoracentesis with removal 500ml pleural fluid. On Heparin drip 12/02 No events overnight. Heparin drip stopped this morning for trach and PEG placement today. Afebrile. 12/03 Patient s/p trach and PEG tube placement yesterday. Had bleeding from around trach and PEG tube insertion sites Heparin drip held last night. s/p transfusion 1u PRBC yesterday Hgb 8.0 this morning. Afebrile. On no sedation. 12/04: Continues to have bruising from PEG tube insertion site. Trach site appears to have stopped. Hemoglobin 7 the same receiving 1 unit FFP and 1 PRBCs. Tube feeds of been resumed. On no sedation. 12/05: Afebrile. No further bleeding noted from the tracheostomy site. Overnight reported by the RN that the PEG tube site continues to bleed Surgicel was placed around the opening, small amount of bleeding still noted. Patient hemoglobin remained 7 patient to be transfused 1 unit PRBC's fibrinogen level pending INR within normal limits. 12/06 Patient s/p transfusion 2u PRBC yesterday Hgb 9.5 this morning from 7.2 last night. No bleeding from trach site however patient still having rectal bleeding. 12/07 No events overnight. On ventilator via trach Hgb 9.8 this morning for colonoscopy today. 12/08: seen and examined around 06:30am. no significant change in mental status. hgb 8.9 this AM. remains on heparin drip at [facility]. 12/09: no improvements or changes. very deconditioned. garcia has remained in without clear indication. had 1 episode of urinary retention, but this is a clear source of infection and an additional serious infection would certainly be life-threatening. 12/10 Patient is now on TP's with 28% FIO2, Afebrile. On Heparin drip. 12/11: remains on t-piece x > 48h. no change in neuro exam. remains on heparin drip with stable hgb 7.8. Subjective: 12/12: asked to see patient again today by the hospitalist service for change in condition. I have evaluated the patient and he does not clinically appear any different than yesterday. HR actually lower than yesterday. bladder scan suggestive of 600cc retention. patient has had urinary retention before, although has also had multiple hospital acquired urinary tract infections. risk/ benefit at this time would be in favor of serial q6h straight catheterizations. remains hemodynamically stable. some emesis today and evidence of ileus. 12/31 Reconsult for resp distress Patient is 77 yo with chronic resp failure, trach/PEG tube placement, CVA transferred to [facility] for resp distress trach changes to #6 and patient was placed on mechanical ventilation. CXR showed increasing consolidation patient was given Lasix prior to arrival to [facility]. 01/01 Patient is on ventilator via trach. Afebrile. 01/02 No events overnight. On no drips, Afebrile, CPAP 15/5 with 35% FIO2 overnight. 01/03 Remained on TP breathing comfortably. CXR shows bilateral effusions. Will get CT chest. Give single dose of lasix. ID consulted and following, no fever in 24 hours 01/04: Remains unresponsive, fever trending down. Sputum culture now growing Klebsiella and ESBL E. coli. Urine culture and wound culture also growing ESBL E. coli. Chest tube placed on the right side yesterday with 1.35 L output since placement. Urine output excellent with single dose of Lasix 2.5 L in 24 hours. No fever in 24 hours. Repeat 40 mg IV Lasix 1 [facility] RECONSULT NOTE 02/08/18: Mr. Glynn is a 77-year-old man who is known to our service. In short, he was initially admitted with possible optic neuritis versus temporal arteritis in September. Care complicated by an STEMI, multiple infections with healthcare associated pneumonia UTIs. During hospitalization he also received TPA for Stroke, MRI of the brain performed on 12/24/2017, showed infarction involving the left corpus callosum and splenium of the corpus callosum. The patient had undergone tracheostomy placement. And since last month had been on hospitalist service and off ventilator. He is currently receiving Levaquin for stenotrophomonas infection, Diflucan for candidemia. Apparently patient was noted to aspirate earlier this a.m. At 7250 AM patient was found unresponsive pulseless rhythm asystole and CPR was started. Total 3 amp of epinephrine given. Patient had a cuff less trach with evidence of aspiration, large amount of tube feeds aspirated from tracheostomy tube. This was exchanged for a 8.0 Shiley tracheostomy cuffed. With improved bag and mask ventilation and after 3 epinephrine, 1 amp of calcium, 1 amp of bicarb, patient regained ROSC SUBJ 02/09/18: Remains very critical not on any sedation he is unresponsive eyes are spontaneously open but no tracking. Very slight withdrawal to pain on the upper extremities. CT of the head unremarkable. Currently borderline hypotensive off pressors. Received 2 units of PRBC for hemoglobin 6.6 yesterday. Prognosis remained poor. Neurology consulted per family request 02/10/18: Remains critical with no improvement in neuro status or clinical status. Eyes are spontaneously open but no response to threat no tracking. Neurology consulted MRI and EEG pending at this time. Currently remains on Levophed at 1 mcg/min. Chest x-ray with bilateral infiltrates sputum culture growing GNR. Na 155. Free water flushes and half-normal saline rate increased. 02/11: Remains unresponsive off all sedation. Osmolality slowly returning to baseline. Antibiotics appropriate for organism. Tube feeds tolerated at 50 mL' s per hour. Unable to wean from mechanical ventilation. Objective Vital Signs / I&O: Vital Signs 02/10/18 12:00 02/10/18 12:07 02/10/18 12:10 Temperature 97.6 F Pulse Rate 86 85 Respiratory Rate 13 18 20 Blood Pressure 94/60 L Pulse Oximetry 98 98 02/10/18 14:00 02/10/18 16:00 02/10/18 16:27 Temperature 97.4 F L Pulse Rate 81 80 82 Respiratory Rate 14 15 Blood Pressure 105/63 Pulse Oximetry 96 97 02/10/18 18:00 02/10/18 19:58 02/10/18 20:00 Temperature 94.1 F L Pulse Rate 79 78 78 Respiratory Rate 14 15 Blood Pressure 103/56 L Pulse Oximetry 96 97 02/10/18 22:00 02/10/18 23:00 02/10/18 23:59 Temperature Pulse Rate 74 81 Respiratory Rate 13 15 Blood Pressure Pulse Oximetry 98 02/11/18 00:00 02/11/18 02:00 02/11/18 03:00 Temperature 95.2 F L 97.3 F L Pulse Rate 81 87 84 Respiratory Rate 17 16 17 Blood Pressure 104/57 L Pulse Oximetry 98 97 02/11/18 03:37 02/11/18 04:00 02/11/18 06:00 Temperature 99.1 F Pulse Rate 87 87 Respiratory Rate 14 16 Blood Pressure 99/56 L Pulse Oximetry 97 98 02/11/18 08:13 02/11/18 08:14 Temperature Pulse Rate 86 Respiratory Rate 15 19 Blood Pressure Pulse Oximetry 99 Intake & Output 02/10/18 02/11/18 02/11/18 18:59 06:59 18:59 Intake Total 3068 / 3068 2204 / 2204 1000 / 1000 Output Total 575 / 575 550 / 550 Balance 2493 / 2493 1654 / 1654 1000 / 1000 Weight 87.3 kg Intake: IV 1999 / 1999 1175 / 1175 1000 / 1000 1/2 Normal Saline Inj 1,000 ML 1900 / 1900 875 / 875 1000 / 1000 @ 150 mls/hr IV.CONT .Q6H40M EDE Rx#:[id number] Diflucan 400 mg Premix Bag 200 200 / 200 ML @ 100 mls/hr IV.SIG Q24H EDE Rx#:[id number] Merrem Inj 1,000 MG In NS Inj 100 / 100 100 / 100 100 ML @ 200 mls/hr IV.SIG Q12H EDE Rx#:[id number] Oral 0 / 0 Tube Feeding 468 / 468 669 / 669 Tube Irrigant 60 / 60 Water Bolus Amount 600 / 600 300 / 300 Output: Urine Amount (Catheter) 575 / 575 550 / 550 Indwelling Urethral Catheter 575 / 575 550 / 550 Other: Date of Last Bowel Movement 02/10/18 02/11/18 # Incontinent Bowel Movements 2 3 Result Diagrams: 02/11/18 04:00 02/11/18 04:00 Objective Remarks: GENERAL: Patient is 77 yo encephalopathy unresponsive on the vent. Eyes are closed. SKIN: Warm and dry. 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 EYES: No scleral icterus. No injection. Pupils equal reaction to light, sluggish NECK: Cuffed tracheostomy tube in place. Moderate secretions persist. CARDIOVASCULAR: S1-S2 normal no murmurs. No JVD. RESPIRATORY: Breath sounds equal bilaterally. Coarse wheezes and rhonchi GASTROINTESTINAL: Abdomen soft. +PEG tube. tube feeds at 50 ml per hour MUSCULOSKELETAL: No cyanosis, or edema. Tepid. NEURO: Eyes are closed. No tracking no response to voice or visual threat. Slight withdrawal to the upper extremity, lower extremities remain flaccid Assessment and Plan - Assessment and Plan Plan: Assessment: Asystole/Cardiac arrest Worsening encephalopathy most likely anoxia contributing Aspiration pneumonia Acute on chronic hypoxemic and hypercapnic resp failure Combined shock, septic and cardiogenic Healthcare associated pneumonia, stenotrophomonas Candidemia UTI with ESBL E. coli Hyponatremia CVA Anemia requiring transfusion Sacral decubitus ulcer s/p NSTEMI Optic neuritis Status post tracheostomy and PEG tube placement Plan: Impression: Neuro -Acute worsening of encephalopathy secondary to systolic cardiac arrest, anoxia -CT head 02/08/[address] Pereira reconsulted per family request -MRI EEG today, pending -History of L ENID infarct. Status post systemic TPA on November 09 -On warfarin INR 3.9, put on hold, pharmacy dosing -Neuropsychology has followed. Continue Ritalin -Optic neuritis. Status post treatment with IV hydrocortisone -Remains unresponsive. CV: -Asystole/cardiac arrest seems secondary to hypoxia and hypercapnia from severe aspiration -Levophed to keep map above 65 -s/p IV fluid normal saline 2 L bolus, 2U PRBC -Increase half-normal saline to 150 ml per hour due to hypernatremia, increase free water flushes to 300 mL every 6 -Continue Coumadin, on hold now due to the INR 3.9 -Echo 10/19: LV systolic function is moderately reduced, EF 40-45%. Cardiology has followed Dr. Hernández -Cardura 2mg daily and Coreg 3.125mg BID on hold due to hypotension. On Lipitor 80mg qhs -Vasopressor dependent. Pulm: -Cardiac arrest seems to be secondary to respiratory arrest. Evidence of aspiration at the time of arrest -Cuff less tracheostomy tube removed and new Shiley 8 cuffed tracheostomy placed 02/08/18 -PRVC/AC ventilation. DuoNeb every 6 hours scheduled and as needed -Failed CPAP due to apnea -ICU vent bundle. Pulm toilet, trach care. -GNR in sputum culture, On Levaquin for stenotrophomonas, Diflucan for candidemia, meropenem for previous ESBL E Coli HCAP -Antibiotic coverage remains appropriate. GI -Currently tube feeds at 10 mL/h, advance as tolerated -On Pepcid 10mg BID -Free water flushes 300 mils every 6 hours -Having BMs : -Monitor renal function, electrolytes replacement per protocol -Increase half-normal saline to 150 ml per hour due to hypernatremia, increase free water flushes to 300 mL every 6 ID -Patient was receiving Levaquin for stenotrophomonas, Diflucan for candidemia -Added meropenem 02/08/18 for previous ESBL E. coli HCAP -Previous UTI with ESBL E. coli, Previous healthcare associated pneumonia with Klebsiella and ESBL E. coli -F/U blood and sputum culture and urine culture. GNR in sputum 02/08 -ID Dr. Jalloh following Skin -Sacral wound-Seen by Plastic surgery; debridement declined per patient's family -Wound care is following- apply dressings per wound management recommendations Heme: -Monitor hemoglobin closely. Status post 2 units PRBC on 02/08/2018 -Previous GI bleed; Status post EGD colonoscopy. GI has signed off, patient with healed rectal ulcers and hemorrhoids. -INR therapeutic -If recurrent anemia will reconsult GI Endo -On SSI. Levemir for glycemic control GI prophylaxis- on Pepcid DVT prophylaxis- On Coumadin hold due to INR 3.9 Overall impression: Patient is very critical after aspiration hypoxemic and hypercarbic respiratory failure leading to asystolic cardiac arrest. Ten minutes of CPR with return of spontaneous circulation after aggressive resuscitation following CPR patient remains hypoxemic and encephalopathy. Remains unresponsive, apneic. Prognosis poor.
--- NOTE | 2018-02-11 13:45 | MG ---
cc: Marcello Pereira MD, PhD DATE OF STUDY: 02/10/2018 PROCEDURE: This is a 17-channel EEG. DESCRIPTION: The background rhythm reveals generalized slowing, mainly the delta frequency at roughly 3-5 Hz, amplitude is about 20 microvolts. There is quite a bit of muscle artifact. There are no lateralizing features identified. No epileptiform activities identified. Photic stimulation results in a poor driving response. INTERPRETATION: Abnormal study consistent with a significant encephalopathy. There is cerebral activity however, although slow and there is no evidence for electrocerebral silence. Marcello Pereira MD, PhD JON/ch , 05:42 PM , 05:47 PM
--- NOTE | 2018-02-11 15:33 | P.PNID ---
Subjective Remarks: remains on vent W/d with BUE ti stimulation, non other response no fever sputu with Kleb pneumo + diarrhea Antibiotics: diflucan meropenem levaquine Lines: Lines ok Past Medical History: reviewed Allergies/Adverse Reactions: Allergies Glucerna 1.5 Adverse Reaction (Uncoded 02/09/18 12:04) Vomiting Objective Vital Signs 02/10/18 16:00 02/10/18 16:27 02/10/18 18:00 Temperature 97.4 F L Pulse Rate 80 82 79 Respiratory Rate 14 15 Blood Pressure 105/63 Pulse Oximetry 96 97 02/10/18 19:58 02/10/18 20:00 02/10/18 22:00 Temperature 94.1 F L Pulse Rate 78 78 74 Respiratory Rate 14 15 Blood Pressure 103/56 L Pulse Oximetry 96 97 02/10/18 23:00 02/10/18 23:59 02/11/18 00:00 Temperature 95.2 F L Pulse Rate 81 81 Respiratory Rate 13 15 17 Blood Pressure 104/57 L Pulse Oximetry 98 98 02/11/18 02:00 02/11/18 03:00 02/11/18 03:37 Temperature 97.3 F L Pulse Rate 87 84 Respiratory Rate 16 17 14 Blood Pressure Pulse Oximetry 97 97 02/11/18 04:00 02/11/18 06:00 02/11/18 08:00 Temperature 99.1 F 97.9 F Pulse Rate 87 87 84 Respiratory Rate 16 18 Blood Pressure 99/56 L 100/58 L Pulse Oximetry 98 99 02/11/18 08:13 02/11/18 08:14 02/11/18 10:00 Temperature Pulse Rate 86 82 Respiratory Rate 15 19 Blood Pressure Pulse Oximetry 99 02/11/18 11:52 02/11/18 11:53 Temperature Pulse Rate 83 Respiratory Rate 16 13 Blood Pressure Pulse Oximetry 96 Intake & Output 02/10/18 02/11/18 02/11/18 18:59 06:59 18:59 Intake Total 3068 / 3068 2204 / 2204 1280 / 1280 Output Total 575 / 575 550 / 550 Balance 2493 / 2493 1654 / 1654 1280 / 1280 Weight 87.3 kg Intake: IV 1999 / 1999 1175 / 1175 1100 / 1100 1/2 Normal Saline Inj 1,000 ML 1900 / 1900 875 / 875 1000 / 1000 @ 150 mls/hr IV.CONT .Q6H40M [facility] Rx#:[id number] Diflucan 400 mg Premix Bag 200 200 / 200 ML @ 100 mls/hr IV.SIG Q24H [facility] Rx#:[id number] Merrem Inj 1,000 MG In NS Inj 100 / 100 100 / 100 100 / 100 100 ML @ 200 mls/hr IV.SIG Q12H [facility] Rx#:[id number] Oral 0 / 0 Tube Feeding 468 / 468 669 / 669 Tube Irrigant 60 / 60 Water Bolus Amount 600 / 600 300 / 300 180 / 180 Output: Urine Amount (Catheter) 575 / 575 550 / 550 Indwelling Urethral Catheter 575 / 575 550 / 550 Other: Date of Last Bowel Movement 02/10/18 02/11/18 # Incontinent Bowel Movements 2 3 02/11/18 13:40 Blood - Peripheral Aerobic Blood Culture - Pending 02/11/18 13:40 Blood - Peripheral Anaerobic Blood Culture - Pending 02/11/18 13:46 Blood - Peripheral Aerobic Blood Culture - Pending 02/11/18 13:46 Blood - Peripheral Anaerobic Blood Culture - Pending 02/08/18 10:24 Blood - Peripheral Aerobic Blood Culture - Preliminary No growth in 3 days 02/08/18 10:24 Blood - Peripheral Anaerobic Blood Culture - Preliminary No growth in 3 days 02/08/18 13:10 Blood - Peripheral Aerobic Blood Culture - Preliminary No growth in 3 days 02/08/18 13:10 Blood - Peripheral Anaerobic Blood Culture - Final QNS - See aerobic report. 02/08/18 12:00 Sputum - Endotracheal Gram Stain - Final 02/08/18 12:00 Sputum - Endotracheal Sputum Culture - Final Klebsiella pneumoniae 02/08/18 12:00 Catheterized Urine Urine Culture - Final No growth in 48 hours 02/08/18 13:15 Blood - Peripheral Blood Fungal Culture - Pending 02/08/18 13:15 Blood - Peripheral Blood Fungal Culture - Final 01/04/18 12:45 Fluid - Pleural fluid Acid Fast Bacilli Smear - Final No acid fast bacilli seen 01/04/18 12:45 Fluid - Pleural fluid Mycobacterial Culture - Preliminary No growth in 5 weeks Lab - Hematology Results 02/10/18 02/11/18 05:07 04:00 WBC 10.2 6.7 RBC 2.75 L 2.63 L Hgb 7.6 L 7.2 L Hct 23.6 L 22.5 L MCV 85.8 85.7 MCH 27.7 27.3 MCHC 32.3 31.8 L RDW 19.5 H 19.5 H Plt Count 180 177 MPV 8.3 8.3 Lab - Chemistry Results 02/09/18 02/09/18 02/09/18 14:55 17:43 19:48 Sodium 156 H* Potassium 3.6 Chloride 120 H Carbon Dioxide 27.1 Anion Gap 9 BUN 79 H Creatinine 1.41 H Estimated GFR 49 L POC Glucose 92 95 Random Glucose 89 Calcium 7.7 L Prot Corrected Calcium Magnesium Total Bilirubin 0.3 AST 60 H ALT 62 Alkaline Phosphatase 144 H Total Protein 5.8 L Albumin 1.0 L 02/09/18 02/10/18 02/10/18 23:07 05:07 05:47 Sodium 155 H Potassium 3.5 Chloride 120 H Carbon Dioxide 26.6 Anion Gap 8 BUN 80 H Creatinine 1.41 H Estimated GFR 49 L POC Glucose 73 124 H Random Glucose 101 Calcium 7.5 L Prot Corrected Calcium Magnesium 2.3 Total Bilirubin 0.3 AST 65 H ALT 57 Alkaline Phosphatase 155 H Total Protein 5.9 L Albumin 1.0 L 02/10/18 02/10/18 02/10/18 12:56 13:10 16:39 Sodium 153 H Potassium Chloride Carbon Dioxide Anion Gap BUN Creatinine Estimated GFR POC Glucose 144 H 154 H Random Glucose Calcium Prot Corrected Calcium Magnesium Total Bilirubin AST ALT Alkaline Phosphatase Total Protein Albumin 02/10/18 02/11/18 02/11/18 22:43 00:52 04:00 Sodium 154 H Potassium 3.3 L Chloride 118 H Carbon Dioxide 25.7 Anion Gap 10 BUN 73 H Creatinine 1.40 H Estimated GFR 49 L POC Glucose 165 H 189 H Random Glucose 138 H Calcium 7.4 L* Prot Corrected Calcium 8.1 L Magnesium Total Bilirubin 0.2 AST 69 H ALT 52 Alkaline Phosphatase 170 H Total Protein 5.8 L Albumin 1.0 L 02/11/18 11:30 Sodium Potassium Chloride Carbon Dioxide Anion Gap BUN Creatinine Estimated GFR POC Glucose 174 H Random Glucose Calcium Prot Corrected Calcium Magnesium Total Bilirubin AST ALT Alkaline Phosphatase Total Protein Albumin Imaging: ITS Impressions Chest CT 01/03/18 00:00 CONCLUSION: 1. Large bilateral pleural effusions occupying more than half of the right and left hemithorax. Abdomen/Pelvis CT 01/13/18 00:00 CONCLUSION: 1. Small bilateral pleural effusions and basilar infiltrates with bilateral chest tubes in place. 2. No evidence of ascites or bowel dilatation. Abdomen/Bladder Ultrasound 01/15/18 00:00 CONCLUSION: 1. Negative renal sonogram. Abdomen X-Ray 02/08/18 00:00 CONCLUSION: 1. Nonobstructive bowel gas pattern. 2. Gastrostomy tube in the left upper abdominal quadrant Head CT 02/08/18 00:00 CONCLUSION: 1. Stable prominent senescent changes with mild to moderate periventricular ischemic white matter demyelination. 2. No acute intracranial abnormality.. Head MRI 02/10/18 00:00 CONCLUSION: 1. No acute findings. Extensive cortical volume loss. Moderate white matter ischemic changes. No recent infarct. Chest X-Ray 02/11/18 06:00 CONCLUSION: Diffuse consolidation likely related to edema. Mild bilateral pleural effusions being worse on the left. Physical Exam: GENERAL: unresponsive On vent SKIN: Warm and dry. No rash HEAD: Normocephalic. EYES: No scleral icterus. No injection or drainage. NECK: Supple, trachea midline. + trach in place with large amount of drainage CARDIOVASCULAR: RRR. No murmurs, rubs, gallops RESPIRATORY: Breath sounds equal bilaterally. No accessory muscle use. Scattereed rhonchi GASTROINTESTINAL: Abdomen soft, non-tender, nondistended. +PEG tube in place MUSCULOSKELETAL: No cyanosis, less prominent edema. GUl; garcia in place with yellow urine Neuro: comatous no eye contact, not follws commands non vernbal Assessment and Plan - Plan Sacral decub with possible underlying infection, osteomyelitis. Prior h/o ESBL E.coli on 10/24/2017. Possible HCAP GNR UTI ? ESBL given h/o ESBL. 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 Encephalopathy: strokes in hospital, optic neuritis on presentation. Fungemia, C. tropicalis Persistent fever Gram negative UTI: PSAE and ESBL + Kleb PNA Acute VDRF Encepholapathy sp code New issue aspiration, likely aspiration PNA - Growing GNB in sputums Diara, abx associated PLAN: see orders
--- NOTE | 2018-02-11 15:55 | P.PN ---
Subjective Interval history: ON THE VENT UNRESPONSIVE id NOTE APPRETIATED Physical Exam Vital signs: Vital Signs 02/10/18 16:00 02/10/18 16:27 02/10/18 18:00 Temperature 97.4 F L Pulse Rate 80 82 79 Respiratory Rate 14 15 Blood Pressure 105/63 Pulse Oximetry 96 97 02/10/18 19:58 02/10/18 20:00 02/10/18 22:00 Temperature 94.1 F L Pulse Rate 78 78 74 Respiratory Rate 14 15 Blood Pressure 103/56 L Pulse Oximetry 96 97 02/10/18 23:00 02/10/18 23:59 02/11/18 00:00 Temperature 95.2 F L Pulse Rate 81 81 Respiratory Rate 13 15 17 Blood Pressure 104/57 L Pulse Oximetry 98 98 02/11/18 02:00 02/11/18 03:00 02/11/18 03:37 Temperature 97.3 F L Pulse Rate 87 84 Respiratory Rate 16 17 14 Blood Pressure Pulse Oximetry 97 97 02/11/18 04:00 02/11/18 06:00 02/11/18 08:00 Temperature 99.1 F 97.9 F Pulse Rate 87 87 84 Respiratory Rate 16 18 Blood Pressure 99/56 L 100/58 L Pulse Oximetry 98 99 02/11/18 08:13 02/11/18 08:14 02/11/18 10:00 Temperature Pulse Rate 86 82 Respiratory Rate 15 19 Blood Pressure Pulse Oximetry 99 02/11/18 11:52 02/11/18 11:53 Temperature Pulse Rate 83 Respiratory Rate 16 13 Blood Pressure Pulse Oximetry 96 Intake & Output 02/10/18 02/11/18 02/11/18 18:59 06:59 18:59 Intake Total 3068 / 3068 2204 / 2204 1280 / 1280 Output Total 575 / 575 550 / 550 Balance 2493 / 2493 1654 / 1654 1280 / 1280 Weight 87.3 kg Intake: IV 1999 / 1999 1175 / 1175 1100 / 1100 1/2 Normal Saline Inj 1,000 ML 1900 / 1900 875 / 875 1000 / 1000 @ 150 mls/hr IV.CONT .Q6H40M [facility] Rx#:[id number] Diflucan 400 mg Premix Bag 200 200 / 200 ML @ 100 mls/hr IV.SIG Q24H [facility] Rx#:[id number] Merrem Inj 1,000 MG In NS Inj 100 / 100 100 / 100 100 / 100 100 ML @ 200 mls/hr IV.SIG Q12H [facility] Rx#:[id number] Oral 0 / 0 Tube Feeding 468 / 468 669 / 669 Tube Irrigant 60 / 60 Water Bolus Amount 600 / 600 300 / 300 180 / 180 Output: Urine Amount (Catheter) 575 / 575 550 / 550 Indwelling Urethral Catheter 575 / 575 550 / 550 Other: Date of Last Bowel Movement 02/10/18 02/11/18 02/11/18 # Incontinent Bowel Movements 2 3 Narrative: GENERAL: UNRESPONSIVE ON VENT SUPPORT SKIN: Warm and dry. +sacral decub per wound care notes. HEAD: Atraumatic. Normocephalic. EYES: Pupils equal and round. No scleral icterus. No injection or drainage. ENT: No nasal bleeding or discharge. Mucous membranes pink and moist. NECK: Trachea midline. Trach in place. CARDIOVASCULAR: Regular rate and rhythm. RESPIRATORY: No accessory muscle use. Clear to auscultation. Breath sounds equal bilaterally. GASTROINTESTINAL: Abdomen soft, non-tender, nondistended. PEG in place. GENITOURINARY: [place] in place - placed 01/21 MUSCULOSKELETAL: Extremities without clubbing, cyanosis, or edema. NEUROLOGICAL: Awake. Unable to follow commands. Nonverbal. PSYCHIATRIC: Calm. - Urinary Catheter Management Straight Cath placed during this visit: yes Urethral indwelling: Yes Reason for continuing: Acute urinary retention Insertion date: 01/21/18 Insertion time: 08:00 Indwelling Urethral Catheter Cath placed during this visit: yes, but has since been removed by the nurse Urethral indwelling: Yes Reason for continuing: Chronic Urinary Retention Insertion date: 01/21/18 Insertion time: 16:18 Removal date: 01/20/18 Removal time: 15:15 Results - Labs CBC & Chem 7: 02/11/18 04:00 02/11/18 04:00 Laboratory Results - last 24 hr 02/10/18 02/10/18 02/11/18 16:39 22:43 00:52 WBC RBC Hgb Hct MCV MCH MCHC RDW Plt Count MPV PT INR Sodium Potassium Chloride Carbon Dioxide Anion Gap BUN Creatinine Estimated GFR POC Glucose 154 H 165 H 189 H Random Glucose Calcium Prot Corrected Calcium Total Bilirubin AST ALT Alkaline Phosphatase Total Protein Albumin 02/11/18 02/11/18 02/11/18 04:00 04:00 04:00 WBC 6.7 RBC 2.63 L Hgb 7.2 L Hct 22.5 L MCV 85.7 MCH 27.3 MCHC 31.8 L RDW 19.5 H Plt Count 177 MPV 8.3 PT 32.6 H INR 3.2 Sodium 154 H Potassium 3.3 L Chloride 118 H Carbon Dioxide 25.7 Anion Gap 10 BUN 73 H Creatinine 1.40 H Estimated GFR 49 L POC Glucose Random Glucose 138 H Calcium 7.4 L* Prot Corrected Calcium 8.1 L Total Bilirubin 0.2 AST 69 H ALT 52 Alkaline Phosphatase 170 H Total Protein 5.8 L Albumin 1.0 L 02/11/18 11:30 WBC RBC Hgb Hct MCV MCH MCHC RDW Plt Count MPV PT INR Sodium Potassium Chloride Carbon Dioxide Anion Gap BUN Creatinine Estimated GFR POC Glucose 174 H Random Glucose Calcium Prot Corrected Calcium Total Bilirubin AST ALT Alkaline Phosphatase Total Protein Albumin Microbiology 02/08/18 10:24 Blood - Peripheral Aerobic Blood Culture - Preliminary No growth in 3 days 02/08/18 10:24 Blood - Peripheral Anaerobic Blood Culture - Preliminary No growth in 3 days 02/08/18 13:10 Blood - Peripheral Aerobic Blood Culture - Preliminary No growth in 3 days 02/08/18 13:10 Blood - Peripheral Anaerobic Blood Culture - Final QNS - See aerobic report. - Imaging Impressions Chest X-Ray 02/11/18 06:00 CONCLUSION: Diffuse consolidation likely related to edema. Mild bilateral pleural effusions being worse on the left. Assessment and Plan - Plan RESPIRATORY FAILURE POST C/P ARREST S/P cva S/P ID S/P trach ACUTE ASPIRATION plan VENT SUPPORT PULM TOILET ANTIBX PER ID
[2018-02-12] MEDS: Insulin NovoLIN Regular Correctional Sugar Inj SQ SCH ×5 (00:38→23:08)
[2018-02-12] MEDS: Sodium Chloride 0.45 % Inj 1,000 ML IV.CONT SCH ×6 (00:38→20:26)
[2018-02-12 04:22] LABS: Baso % (Auto) 0.2 % (0.0-2.0); Eos # (Auto) 0.4 th/mm3 (0.0-0.4); Eos % (Auto) 5.2 % (0.0-4.0); Hemoglobin 7.1 gm/dL (13.0-17.0); Lymph # (Auto) 1.6 th/mm3 (1.0-4.8); Lymph % (Auto) 22.5 % (9.0-44.0); Mean Corpuscular HGB Conc 32.2 % (32.0-36.0); Mean Corpuscular Hemoglobin 27.8 pg (27.0-34.0); Mean Corpuscular Volume 86.3 fL (80.0-100.0); Mean Platelet Volume 8.7 fL (7.0-11.0); Mono # (Auto) 0.4 th/mm3 (0.0-0.9); Mono % (Auto) 6.2 % (0.0-8.0); Neut # (Auto) 4.7 th/mm3 (1.8-7.7); Neut % (Auto) 65.9 % (16.0-70.0); Platelet Count 172 th/mm3 (150-450); Red Blood Count 2.55 mil/mm3 (4.50-5.90); Red Cell Distribution Width 19.4 % (11.6-17.2); White Blood Count 7.1 th/mm3 (4.0-11.0)
[2018-02-12 04:39] LABS: INR 2.9 Ratio; Prothrombin Time 29.4 sec (9.8-11.6)
[2018-02-12 04:58] LABS: Calcium 7.4 mg/dL (8.5-10.1); Carbon Dioxide 25.4 meq/L (21.0-32.0); Potassium 3.8 meq/L (3.5-5.1)
[2018-02-12 05:23] LABS: Total Protein 5.9 g/dL (6.4-8.2)
[2018-02-12] MEDS: Insulin Glargine Inj 1,000 UNITS/10 ML Vial SQ SCH ×2 (09:24→20:40)
[2018-02-12] MEDS: Famotidine 20 MG Tablet PO SCH ×2 (09:25→20:40)
[2018-02-12] MEDS: Hydrocortisone Acetate 25 MG Supp RECTAL SCH ×2 (09:25→21:36)
[2018-02-12] MEDS: Polyethylene Glycol 3350 17 GM Packet PO SCH (09:25)
[2018-02-12] MEDS: Collagenase Oint 30 GM Tube TOPICAL SCH (09:26)
--- NOTE | 2018-02-12 10:01 | P.PNCC ---
Subjective Subjective Remarks/Hospital Course: This is a 77-year-old male who initially presented with vision changes and concern for optic neuritis versus temporal arteritis. His initial presentation was on 10/14. His hospital course has been complicated by an NSTEMI with troponins which peaked at 10, ESBL E. coli urinary tract infection, rectal bleeding suspected from bleeding hemorrhoids, acute anemia secondary to blood loss with hemoglobin started around 14 and is trended down to 9.7 this morning. On his initial MRA he was found to have significant atherosclerotic cerebrovascular disease in all vascular territories. Today, he had an acute mental status change and was obtunded. Rapid response and stroke alert was called. His initial NIH stroke scale was 22. Dr. goldstein had conversations with Dr. Ulloa and neurology as well as Dr. sierra with gastroenterology. GI feels comfortable with giving thrombolytics and neurology feels strongly that this patient would benefit from systemic IV TPA therapy. I evaluated the patient on arrival to the intensive care unit. The patient is arousable, but very somnolent. He is Sinhala speaking, and it is very difficult to ascertain whether or not he can follow commands. He does move all extremities spontaneously, although it appears that his left side is weaker than his right. He has noted facial droop. CT head is negative for acute hemorrhage. CTA head neck is significant for the same multivessel cerebrovascular disease that was present on admission. Given the high-risk nature of the stroke as well as his acute anemia this hospitalization, in preparation for giving emergent IV systemic TPA, I placed an arterial line as well as a large-bore peripheral IV so that we could draw serial labs, monitor his hemoglobin, and give blood products if necessary. I also had an additional discussion with the family where I reconfirmed that their goals were aggressive and they fully understood the significant risk of life-threatening hemorrhage associated with systemic TPA in a patient with new anemia and suspected GI bleeding. The family expressed understanding of his condition and understanding of the heightened risk of life-threatening bleeding, but still urged that we needed to get TPA. Immediately after giving IV TPA, patient had a tonic clonic seizure (witnessed on EEG) and became obtunded with acute hypoxic and hypercarbic respiratory failure and was emergently intubated (see separate procedure note for details). 11/10: remains intubated. encephalopathy persists. hgb stable s/p TPA. ~350cc bloody OG tube output, but this is slowing down. 11/11: more awake. on SBT. follows commands. 11/12: remains extubated. off vasopressors. no changes in mental status. 11/18/17 CCM Reconsult Note Patient was transferred to ICU today after a Halicat was called for AMS, hypoxia , high fever. Apparently patient was lethargic since a.m. in the last hour had been unresponsive and hence Halicat was called. Patient had a fever of 101.4 in a.m., T-max is 101.6. I immediately evaluated the patient in the ICU. Patient is completely unresponsive, oxygen saturation 87% on 4 L nasal cannula. Hypopneic. No response to deep pain. Patient was confirmed to be a full code and I proceeded with endotracheal intubation place him on mechanical ventilation as patient was not protecting airway. More history was obtained from discussion with ID Dr. Jalloh. She indicated patient had been increasingly lethargic with fever and also had urinary retention.She has discontinued Ertapenem, and started on meropenem, vancomycin and micafungin. Cultures have been sent and are pending now. Source of sepsis appears to be aspiration pneumonia versus UTI. Repeat UA and panculture pending at this time. Patient was borderline hypotensive prior to intubation and I have started on Levophed to avoid hypotension post intubation. Receiving 1 L normal saline bolus now, give additional fluid bolus if patient requires continued Levophed will place central line 11/19: remains intubated. holding aggrenox for possible thoracentesis today, but family hesitant to consent with concerns over bleeding risk. Cr remains elevated. discussion with Dr. Bernal, unlikely to benefit currently from draining effusion, so at his recommendation, will proceed with attempted weaning from mechanical ventilation and treat effusion conservatively. 11/20: Overnight /early this a.m. ,the patient was noted to have large amount of rectal bleeding. Aggrenox held since 11/18, 2/2 reintubation. Type and screen ordered. Serial H&H currently be performed. Hemodynamically stable. GI has been reconsulted. Protonix previously given PRN, will schedule BID. Patient was reintubated emergently 11/18, plan for continue CPAP trials. Tube feedings until evaluation by GI. ASA placed on hold , in the setting of GI bleeding. 11/21: EGD and colonoscopy performed yesterday. Patient was noted to be constipated ,disimpacted per GI. Patient noted to have hemorrhoids which was clipped. No further bleeding throughout the night. Chest x-ray showed improvement. CPAP trials initiated this a.m.. ASA 81 mg resumed. 11/22: Patient tolerated CPAP trials approximately 13 hours yesterday. Initiation of tube feeds per GI yesterday, no residuals. This am , family concerned patient not responsive. CT brain , ammonia level and EEG pending. Neurology has been reconsulted. Upon my entering the room, this afternoon, the patient was awake, tracking and squeezing my hand upon commands, with right hand. The patient received 1 u PRBC for Hgb 7.2. Post transfusion CBC pending. Plan for quantification of pleural fluid for possible thoracentesis in a.m.. 11/23: No acute events overnight. Patient remains off all sedation. Noted spontaneous eye opening, tracking following commands squeezing hands right greater than left. Neurology following plan for MRI this a.m., repeat EEG pending. Hemoglobin stable this a.m.. Chest x-ray slight improvement, plan for quantification via ultrasound of pleural effusions for possible thoracentesis today. 3 failed attempts at CPAP trials yesterday. 1548-MRI resulted findings consistent of small areas of acute cortical infarct, new since 11/09/2017. I contacted neurology, Dr. Geronimo informed of results. After Dr. Palma's review of imaging and records, it was determined most likely cardioembolic since is affecting both sides and failure with aspirin and Persantine. Ischemic stroke heparin protocol initiated. Careful review secondary to patient history of GI bleed 11/20, thought to be emanating from hemorrhoid ,however due to poor suboptimal prep, they unable to have optimal visualization per Dr. Jones. 11/24: Late entry note. Patient seen and evaluated 614. No acute events overnight. Patient continues on heparin infusion no active signs of bleeding. PTT within therapeutic range. The patient is less responsive this a.m., spontaneous eye opening, not following my commands. Not moving his extremities spontaneously for me as previously performed yesterday. tube feeds reinitiated. Chest x-ray showed further improvement in aeration of lungs the patient continues on FiO2 of 0.35. Plan for CPAP trials today. 11/25: No acute events overnight. Neurological status unchanged. Spontaneous eye opening patient continues not following any commands. Dr. Geronimo at bedside evaluating patient, no change. Patient tolerated CPAP trials approximately 12 hours yesterday. Tolerating tube feeds. Chest x-ray remains unchanged from yesterday. Hemoccult stool negative. Heparin infusion continued. family at bedside. 11/26: Late entry note. Patient seen at 1240pm. Last night the patient was noted to be continuously hyperglycemic. Levemir added to medication regimen 10 mg/day hemoglobin dropped 2 g/dL in 2 days hemoglobin now 7.7, patient to be transfused 1 unit packed red blood. No obvious signs of bleeding Hemoccult was negative. Patient continues on heparin infusion, patient may require tracheostomy and PEG in the near future . Plan to transition to p.o. anticoagulation post procedures. Neurologically the status is unchanged the patient is opens eyes spontaneously no movement of extremities upon my evaluation. Continued CPAP trials currently greater than 6 hours. 11/27: At 1000am, the patient was noted to have melena, approximated at 150 cc per RN evaluation. Heparin infusion discontinued/placed on hold at 10 AM. Stool for Hemoccult blood sent, GI was contacted and informed of the above events. Stat CT of the abdomen and pelvis with p.o. contrast ordered, results pending. Patient previously had been tolerating trickle feeds at 10 cc an hour with no residuals, after initiation of Reglan 5 mg every 8 hours yesterday. Neurologically the patient status is unchanged. Patient does have spontaneous eye opening but does not follow my commands and does not move extremities. Patient's daughter is at bedside, discussed the above events at which she was present for, she is requesting a repeat colonoscopy. I informed her that a CT of the abdomen and pelvis will be obtained, serial hemoglobin will be evaluated and if needed transfusion will be provided and gastroenterology has been contacted and will determine further management if an invasive procedure is required. Hemoglobin continues to be monitored serially, results pending for 10 AM. The patient received 1 unit packed red blood cells, and current hemoglobin trended overnight 8.9 to 8.2 this a.m., posttransfusion. 11/28: hgb continues to decline despite being off heparin. no additional GI interventions are available at this time. clearly the patient has failed anticoagulation with 2 life-threatening bleeding episodes. Although it is clear he may have additional strokes off anticoagulation, we have clear evidence that we are hurting his overall clinical care with his anticoagulation. I explained this at length to the daughter and medical decision maker. however, she insists that she would rather see him of bleeding rather than have any more strokes , and insists that "we can always keep giving him blood". I explained that blood is not without risk, and there is significant risk to anticoagulation, but she is insistent that he be given anticoagulation to prevent further strokes and she has weighed the risks and benefits after having full informed consent, insists upon us restarting the heparin drip. At her insistence, I have restarted it. In addition, I have counseled her that I do not think he will survive this hospitalization, and he will require tracheostomy for further aggressive care. She states that we are not at "day 14" on the vent, and it is not time for a tracheostomy yet. This is a second intubation and we are certainly at risk for complications from endotracheal intubation, and tracheostomy would be the most appropriate next step for this patient, but the family is refusing until WednesdayDecember 01. 11/29 Patient remains intubated, on no sedation. Afebrile. 11/30 No events overnight. Patient tolerated CPAP for most of day yesterday. Remains on Heparin drip. 12/01 Patient remains intubated tolerated CPAP for several hrs yesterday. s/p CT guided right thoracentesis with removal 500ml pleural fluid. On Heparin drip 12/02 No events overnight. Heparin drip stopped this morning for trach and PEG placement today. Afebrile. 12/03 Patient s/p trach and PEG tube placement yesterday. Had bleeding from around trach and PEG tube insertion sites Heparin drip held last night. s/p transfusion 1u PRBC yesterday Hgb 8.0 this morning. Afebrile. On no sedation. 12/04: Continues to have bruising from PEG tube insertion site. Trach site appears to have stopped. Hemoglobin 7 the same receiving 1 unit FFP and 1 PRBCs. Tube feeds of been resumed. On no sedation. 12/05: Afebrile. No further bleeding noted from the tracheostomy site. Overnight reported by the RN that the PEG tube site continues to bleed Surgicel was placed around the opening, small amount of bleeding still noted. Patient hemoglobin remained 7 patient to be transfused 1 unit PRBC's fibrinogen level pending INR within normal limits. 12/06 Patient s/p transfusion 2u PRBC yesterday Hgb 9.5 this morning from 7.2 last night. No bleeding from trach site however patient still having rectal bleeding. 12/07 No events overnight. On ventilator via trach Hgb 9.8 this morning for colonoscopy today. 12/08: seen and examined around 06:30am. no significant change in mental status. hgb 8.9 this AM. remains on heparin drip at [facility]. 12/09: no improvements or changes. very deconditioned. garcia has remained in without clear indication. had 1 episode of urinary retention, but this is a clear source of infection and an additional serious infection would certainly be life-threatening. 12/10 Patient is now on TP's with 28% FIO2, Afebrile. On Heparin drip. 12/11: remains on t-piece x > 48h. no change in neuro exam. remains on heparin drip with stable hgb 7.8. Subjective: 12/12: asked to see patient again today by the hospitalist service for change in condition. I have evaluated the patient and he does not clinically appear any different than yesterday. HR actually lower than yesterday. bladder scan suggestive of 600cc retention. patient has had urinary retention before, although has also had multiple hospital acquired urinary tract infections. risk/ benefit at this time would be in favor of serial q6h straight catheterizations. remains hemodynamically stable. some emesis today and evidence of ileus. 12/31 Reconsult for resp distress Patient is 77 yo with chronic resp failure, trach/PEG tube placement, CVA transferred to [facility] for resp distress trach changes to #6 and patient was placed on mechanical ventilation. CXR showed increasing consolidation patient was given Lasix prior to arrival to [facility]. 01/01 Patient is on ventilator via trach. Afebrile. 01/02 No events overnight. On no drips, Afebrile, CPAP 15/5 with 35% FIO2 overnight. 01/03 Remained on TP breathing comfortably. CXR shows bilateral effusions. Will get CT chest. Give single dose of lasix. ID consulted and following, no fever in 24 hours 01/04: Remains unresponsive, fever trending down. Sputum culture now growing Klebsiella and ESBL E. coli. Urine culture and wound culture also growing ESBL E. coli. Chest tube placed on the right side yesterday with 1.35 L output since placement. Urine output excellent with single dose of Lasix 2.5 L in 24 hours. No fever in 24 hours. Repeat 40 mg IV Lasix 1 [facility] RECONSULT NOTE 02/08/18: Mr. Glynn is a 77-year-old man who is known to our service. In short, he was initially admitted with possible optic neuritis versus temporal arteritis in September. Care complicated by an STEMI, multiple infections with healthcare associated pneumonia UTIs. During hospitalization he also received TPA for Stroke, MRI of the brain performed on 12/24/2017, showed infarction involving the left corpus callosum and splenium of the corpus callosum. The patient had undergone tracheostomy placement. And since last month had been on hospitalist service and off ventilator. He is currently receiving Levaquin for stenotrophomonas infection, Diflucan for candidemia. Apparently patient was noted to aspirate earlier this a.m. At 7250 AM patient was found unresponsive pulseless rhythm asystole and CPR was started. Total 3 amp of epinephrine given. Patient had a cuff less trach with evidence of aspiration, large amount of tube feeds aspirated from tracheostomy tube. This was exchanged for a 8.0 Shiley tracheostomy cuffed. With improved bag and mask ventilation and after 3 epinephrine, 1 amp of calcium, 1 amp of bicarb, patient regained ROSC SUBJ 02/09/18: Remains very critical not on any sedation he is unresponsive eyes are spontaneously open but no tracking. Very slight withdrawal to pain on the upper extremities. CT of the head unremarkable. Currently borderline hypotensive off pressors. Received 2 units of PRBC for hemoglobin 6.6 yesterday. Prognosis remained poor. Neurology consulted per family request 02/10/18: Remains critical with no improvement in neuro status or clinical status. Eyes are spontaneously open but no response to threat no tracking. Neurology consulted MRI and EEG pending at this time. Currently remains on Levophed at 1 mcg/min. Chest x-ray with bilateral infiltrates sputum culture growing GNR. Na 155. Free water flushes and half-normal saline rate increased. 02/11: Remains unresponsive off all sedation. Osmolality slowly returning to baseline. Antibiotics appropriate for organism. Tube feeds tolerated at 50 mL' s per hour. Unable to wean from mechanical ventilation. 02/12: Osmolality slowly returning to baseline. Tube feeds now tolerated at 60 mL's per hour. Unable to wean from mechanical ventilation due to fatigue. Objective Vital Signs / I&O: Vital Signs 02/11/18 10:00 02/11/18 11:52 02/11/18 11:53 Temperature Pulse Rate 82 83 Respiratory Rate 16 13 Blood Pressure Pulse Oximetry 96 02/11/18 12:00 02/11/18 14:00 02/11/18 16:00 Temperature 96.8 F L 98.6 F Pulse Rate 83 93 H 86 Respiratory Rate 16 17 Blood Pressure 104/58 L 98/55 L Pulse Oximetry 99 98 02/11/18 16:41 02/11/18 18:00 02/11/18 20:00 Temperature 98.4 F Pulse Rate 89 85 86 Respiratory Rate 20 15 Blood Pressure 100/57 L Pulse Oximetry 99 98 02/11/18 20:43 02/11/18 20:45 02/11/18 22:00 Temperature Pulse Rate 92 H 96 H Respiratory Rate 15 16 Blood Pressure Pulse Oximetry 98 02/11/18 23:52 02/11/18 23:53 02/12/18 00:00 Temperature 98.2 F Pulse Rate 87 84 Respiratory Rate 13 13 13 Blood Pressure 107/56 L Pulse Oximetry 99 99 02/12/18 02:00 02/12/18 03:55 02/12/18 03:57 Temperature Pulse Rate 86 83 Respiratory Rate 15 17 Blood Pressure Pulse Oximetry 98 02/12/18 04:00 02/12/18 06:00 02/12/18 09:04 Temperature 97.7 F Pulse Rate 83 83 90 Respiratory Rate 14 16 Blood Pressure 102/59 L Pulse Oximetry 99 99 Intake & Output 02/11/18 02/12/18 02/12/18 18:59 06:59 18:59 Intake Total 3130 / 3130 2500 / 2500 Output Total 850 / 850 1000 / 1000 Balance 2280 / 2280 1500 / 1500 Weight 90.4 kg Intake: IV 2099 / 2099 1290 / 1290 1/2 Normal Saline Inj 1,000 ML 2000 / 1999 990 / 990 @ 150 mls/hr IV.CONT .Q6H40M [facility] Rx#:[id number] Diflucan 400 mg Premix Bag 200 200 / 200 ML @ 100 mls/hr IV.SIG Q24H [facility] Rx#:[id number] Merrem Inj 1,000 MG In NS Inj 100 / 100 100 / 100 100 ML @ 200 mls/hr IV.SIG Q12H [facility] Rx#:[id number] Tube Feeding 850 / 850 690 / 690 Tube Irrigant 120 / 120 Water Bolus Amount 180 / 180 400 / 400 Output: Urine Amount (Catheter) 850 / 850 1000 / 1000 Indwelling Urethral Catheter 850 / 850 1000 / 1000 Other: Date of Last Bowel Movement 02/11/18 02/11/18 Result Diagrams: 02/12/18 04:05 02/12/18 04:05 Objective Remarks: GENERAL: Patient is 77 yo encephalopathy unresponsive on the vent. Eyes are closed. SKIN: Warm and dry. 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 EYES: No scleral icterus. No injection. Pupils equal reaction to light, sluggish NECK: Cuffed tracheostomy tube in place. Moderate secretions persist. CARDIOVASCULAR: S1-S2 normal no murmurs. No JVD. RESPIRATORY: Breath sounds equal bilaterally. Coarse wheezes and rhonchi GASTROINTESTINAL: Abdomen soft. +PEG tube. tube feeds at 50 ml per hour MUSCULOSKELETAL: No cyanosis, or edema. Tepid. NEURO: Eyes are closed. No tracking no response to voice or visual threat. Slight withdrawal to the upper extremity, lower extremities remain flaccid Assessment and Plan - Assessment and Plan Plan: Assessment: Asystole/Cardiac arrest Worsening encephalopathy most likely anoxia contributing Aspiration pneumonia Acute on chronic hypoxemic and hypercapnic resp failure Combined shock, septic and cardiogenic Healthcare associated pneumonia, stenotrophomonas Candidemia UTI with ESBL E. coli Hyponatremia CVA Anemia requiring transfusion Sacral decubitus ulcer s/p NSTEMI Optic neuritis Status post tracheostomy and PEG tube placement Plan: Impression: Neuro -Acute worsening of encephalopathy secondary to systolic cardiac arrest, anoxia -CT head 02/08/[address] Pereira reconsulted per family request -MRI EEG today, pending -History of L ENID infarct. Status post systemic TPA on November 09 -On warfarin INR 3.9, put on hold, pharmacy dosing -Neuropsychology has followed. Continue Ritalin -Optic neuritis. Status post treatment with IV hydrocortisone -Remains unresponsive. CV: -Asystole/cardiac arrest seems secondary to hypoxia and hypercapnia from severe aspiration -Levophed to keep map above 65 -s/p IV fluid normal saline 2 L bolus, 2U PRBC -Increase half-normal saline to 150 ml per hour due to hypernatremia, increase free water flushes to 300 mL every 6 -Continue Coumadin, on hold now due to the INR 3.9 -Echo 10/19: LV systolic function is moderately reduced, EF 40-45%. Cardiology has followed Dr. Hernández -Cardura 2mg daily and Coreg 3.125mg BID on hold due to hypotension. On Lipitor 80mg qhs -Vasopressor dependent. Pulm: -Cardiac arrest seems to be secondary to respiratory arrest. Evidence of aspiration at the time of arrest -Cuff less tracheostomy tube removed and new Shiley 8 cuffed tracheostomy placed 02/08/18 -PRVC/AC ventilation. DuoNeb every 6 hours scheduled and as needed -Failed CPAP due to apnea -ICU vent bundle. Pulm toilet, trach care. -GNR in sputum culture, On Levaquin for stenotrophomonas, Diflucan for candidemia, meropenem for previous ESBL E Coli HCAP -Antibiotic coverage remains appropriate. GI -Currently tube feeds at 10 mL/h, advance as tolerated -On Pepcid 10mg BID -Free water flushes 300 mils every 6 hours -Having BMs -Tube feeds at 60 mL's per hour 02/12. : -Monitor renal function, electrolytes replacement per protocol -Increase half-normal saline to 150 ml per hour due to hypernatremia, increase free water flushes to 300 mL every 6 ID -Patient was receiving Levaquin for stenotrophomonas, Diflucan for candidemia -Added meropenem 02/08/18 for previous ESBL E. coli HCAP -Previous UTI with ESBL E. coli, Previous healthcare associated pneumonia with Klebsiella and ESBL E. coli -F/U blood and sputum culture and urine culture. GNR in sputum 02/08 -ID Dr. Jalloh following Skin -Sacral wound-Seen by Plastic surgery; debridement declined per patient's family -Wound care is following- apply dressings per wound management recommendations Heme: -Monitor hemoglobin closely. Status post 2 units PRBC on 02/08/2018 -Previous GI bleed; Status post EGD colonoscopy. GI has signed off, patient with healed rectal ulcers and hemorrhoids. -INR therapeutic -If recurrent anemia will reconsult GI Endo -On SSI. Levemir for glycemic control GI prophylaxis- on Pepcid DVT prophylaxis- On Coumadin hold due to INR 3.9 Overall impression: Patient is very critical after aspiration with hypoxemic and hypercarbic respiratory failure leading to asystolic cardiac arrest. Ten minutes of CPR with return of spontaneous circulation after aggressive resuscitation following CPR patient remains hypoxemic and encephalopathy. Remains unresponsive, apneic. Prognosis poor.
--- NOTE | 2018-02-12 15:13 | P.PN ---
Subjective Interval history: OBTUNDEDE ON VENT SUPPORT Physical Exam Vital signs: Vital Signs 02/11/18 16:00 02/11/18 16:41 02/11/18 18:00 Temperature 98.6 F Pulse Rate 86 89 85 Respiratory Rate 17 20 Blood Pressure 98/55 L Pulse Oximetry 98 99 02/11/18 20:00 02/11/18 20:43 02/11/18 20:45 Temperature 98.4 F Pulse Rate 86 92 H Respiratory Rate 15 15 16 Blood Pressure 100/57 L Pulse Oximetry 98 98 02/11/18 22:00 02/11/18 23:52 02/11/18 23:53 Temperature Pulse Rate 96 H 87 Respiratory Rate 13 13 Blood Pressure Pulse Oximetry 99 02/12/18 00:00 02/12/18 02:00 02/12/18 03:55 Temperature 98.2 F Pulse Rate 84 86 83 Respiratory Rate 13 15 Blood Pressure 107/56 L Pulse Oximetry 99 02/12/18 03:57 02/12/18 04:00 02/12/18 06:00 Temperature 97.7 F Pulse Rate 83 83 Respiratory Rate 17 14 Blood Pressure 102/59 L Pulse Oximetry 98 99 02/12/18 09:04 02/12/18 12:16 Temperature Pulse Rate 90 90 Respiratory Rate 16 19 Blood Pressure Pulse Oximetry 99 99 Intake & Output 02/11/18 02/12/18 02/12/18 18:59 06:59 18:59 Intake Total 3130 / 3130 2500 / 2500 1000 / 1000 Output Total 850 / 850 1000 / 1000 Balance 2280 / 2280 1500 / 1500 1000 / 1000 Weight 90.4 kg Intake: IV 2100 / 2100 1290 / 1290 1000 / 1000 1/2 Normal Saline Inj 1,000 ML 2000 / 2000 990 / 990 1000 / 1000 @ 150 mls/hr IV.CONT .Q6H40M EDE Rx#:[id number] Diflucan 400 mg Premix Bag 200 200 / 200 ML @ 100 mls/hr IV.SIG Q24H EDE Rx#:[id number] Merrem Inj 1,000 MG In NS Inj 100 / 100 100 / 100 100 ML @ 200 mls/hr IV.SIG Q12H EDE Rx#:[id number] Tube Feeding 850 / 850 690 / 690 Tube Irrigant 120 / 120 Water Bolus Amount 180 / 180 400 / 400 Output: Urine Amount (Catheter) 850 / 850 1000 / 1000 Indwelling Urethral Catheter 850 / 850 1000 / 1000 Other: Date of Last Bowel Movement 02/11/18 02/11/18 Narrative: GENERAL: WDWN male patient, INAD. Awake, sitting up in chair. Family at the bedside. SKIN: Warm and dry. +sacral decub per wound care notes. HEAD: Atraumatic. Normocephalic. EYES: Pupils equal and round. No scleral icterus. No injection or drainage. ENT: No nasal bleeding or discharge. Mucous membranes pink and moist. NECK: Trachea midline. Trach in place. CARDIOVASCULAR: Regular rate and rhythm. RESPIRATORY: No accessory muscle use. Clear to auscultation. Breath sounds equal bilaterally. GASTROINTESTINAL: Abdomen soft, non-tender, nondistended. PEG in place. GENITOURINARY: [place] in place - placed 01/21 MUSCULOSKELETAL: Extremities without clubbing, cyanosis, or edema. NEUROLOGICAL: Awake. Unable to follow commands. Nonverbal. PSYCHIATRIC: Calm. - Urinary Catheter Management Straight Cath placed during this visit: yes Urethral indwelling: Yes Reason for continuing: Acute urinary retention Insertion date: 01/21/18 Insertion time: 08:00 Indwelling Urethral Catheter Cath placed during this visit: yes, but has since been removed by the nurse Urethral indwelling: Yes Reason for continuing: Chronic Urinary Retention Insertion date: 01/21/18 Insertion time: 16:18 Removal date: 01/20/18 Removal time: 15:15 Results - Labs CBC & Chem 7: 02/12/18 04:05 02/12/18 04:05 Laboratory Results - last 24 hr 02/11/18 02/12/18 02/12/18 18:35 00:16 04:05 WBC RBC Hgb Hct MCV MCH MCHC RDW Plt Count MPV Neut % (Auto) Lymph % (Auto) [place] % (Auto) Eos % (Auto) Baso % (Auto) Neut # (Auto) Lymph # (Auto) [place] # (Auto) Eos # (Auto) Baso # (Auto) WBC Differential Differential Comment PT 29.4 H INR 2.9 Sodium Potassium Chloride Carbon Dioxide Anion Gap BUN Creatinine Estimated GFR POC Glucose 248 H 247 H Random Glucose Calcium Prot Corrected Calcium Total Protein 02/12/18 02/12/18 02/12/18 04:05 04:05 06:21 WBC 7.1 RBC 2.55 L Hgb 7.1 L Hct 22.0 L MCV 86.3 MCH 27.8 MCHC 32.2 RDW 19.4 H Plt Count 172 MPV 8.7 Neut % (Auto) 65.9 Lymph % (Auto) 22.5 [place] % (Auto) 6.2 Eos % (Auto) 5.2 H Baso % (Auto) 0.2 Neut # (Auto) 4.7 Lymph # (Auto) 1.6 [place] # (Auto) 0.4 Eos # (Auto) 0.4 Baso # (Auto) 0.0 WBC Differential . Differential Comment Auto diff final PT INR Sodium 152 H Potassium 3.8 Chloride 119 H Carbon Dioxide 25.4 Anion Gap 8 BUN 77 H Creatinine 1.40 H Estimated GFR 49 L POC Glucose 265 H Random Glucose 225 H Calcium 7.4 L* Prot Corrected Calcium 8.1 L Total Protein 5.9 L Microbiology 02/08/18 10:24 Blood - Peripheral Aerobic Blood Culture - Preliminary No growth in 4 days 02/08/18 10:24 Blood - Peripheral Anaerobic Blood Culture - Preliminary No growth in 4 days 02/11/18 13:40 Blood - Peripheral Aerobic Blood Culture - Preliminary No growth in 1 day 02/11/18 13:40 Blood - Peripheral Anaerobic Blood Culture - Preliminary No growth in 1 day 02/11/18 13:46 Blood - Peripheral Aerobic Blood Culture - Preliminary No growth in 1 day 02/11/18 13:46 Blood - Peripheral Anaerobic Blood Culture - Preliminary No growth in 1 day 02/08/18 13:10 Blood - Peripheral Aerobic Blood Culture - Preliminary No growth in 4 days 02/08/18 13:10 Blood - Peripheral Anaerobic Blood Culture - Final QNS - See aerobic report. Assessment and Plan - Plan RESPIRATORY FAILURE POST C/P ARREST S/P cva S/P ID S/P trach ACUTE ASPIRATION plan VENT SUPPORT PULM TOILET ANTIBX PER ID OUTLOOK POOR
[2018-02-12] MEDS: levoFLOXacin 750 MG Tablet PO SCH (16:40)
[2018-02-13] MEDS: Sodium Chloride 0.45 % Inj 1,000 ML IV.CONT SCH ×3 (04:51→21:35)
[2018-02-13] MEDS: Insulin NovoLIN Regular Correctional Sugar Inj SQ SCH ×3 (05:26→19:16)
[2018-02-13 05:38] LABS: INR 2.2 Ratio; Prothrombin Time 22.3 sec (9.8-11.6)
[2018-02-13 05:52] LABS: Calcium 7.6 mg/dL (8.5-10.1); Carbon Dioxide 25.7 meq/L (21.0-32.0); Potassium 3.9 meq/L (3.5-5.1)
[2018-02-13 07:13] LABS: Hematocrit 23.4 % (39.0-51.0); Hemoglobin 7.2 gm/dL (13.0-17.0); Mean Corpuscular Hemoglobin 26.7 pg (27.0-34.0); Mean Corpuscular Volume 86.5 fL (80.0-100.0); Mean Platelet Volume 9.3 fL (7.0-11.0); Platelet Count 182 th/mm3 (150-450); Red Blood Count 2.71 mil/mm3 (4.50-5.90); Red Cell Distribution Width 20.1 % (11.6-17.2); White Blood Count 6.1 th/mm3 (4.0-11.0)
[2018-02-13 07:14] LABS: Mean Corpuscular HGB Conc 30.9 % (32.0-36.0)
[2018-02-13] MEDS: Famotidine 20 MG Tablet PO SCH ×2 (08:00→21:38)
[2018-02-13] MEDS: Polyethylene Glycol 3350 17 GM Packet PO SCH (08:00)
[2018-02-13] MEDS: Insulin Glargine Inj 1,000 UNITS/10 ML Vial SQ SCH (08:00)
--- NOTE | 2018-02-13 09:42 | P.PNCC ---
Subjective Subjective Remarks/Hospital Course: This is a 77-year-old male who initially presented with vision changes and concern for optic neuritis versus temporal arteritis. His initial presentation was on 10/14. His hospital course has been complicated by an NSTEMI with troponins which peaked at 10, ESBL E. coli urinary tract infection, rectal bleeding suspected from bleeding hemorrhoids, acute anemia secondary to blood loss with hemoglobin started around 14 and is trended down to 9.7 this morning. On his initial MRA he was found to have significant atherosclerotic cerebrovascular disease in all vascular territories. Today, he had an acute mental status change and was obtunded. Rapid response and stroke alert was called. His initial NIH stroke scale was 22. Dr. goldstein had conversations with Dr. Ulloa and neurology as well as Dr. sierra with gastroenterology. GI feels comfortable with giving thrombolytics and neurology feels strongly that this patient would benefit from systemic IV TPA therapy. I evaluated the patient on arrival to the intensive care unit. The patient is arousable, but very somnolent. He is Vietnamese speaking, and it is very difficult to ascertain whether or not he can follow commands. He does move all extremities spontaneously, although it appears that his left side is weaker than his right. He has noted facial droop. CT head is negative for acute hemorrhage. CTA head neck is significant for the same multivessel cerebrovascular disease that was present on admission. Given the high-risk nature of the stroke as well as his acute anemia this hospitalization, in preparation for giving emergent IV systemic TPA, I placed an arterial line as well as a large-bore peripheral IV so that we could draw serial labs, monitor his hemoglobin, and give blood products if necessary. I also had an additional discussion with the family where I reconfirmed that their goals were aggressive and they fully understood the significant risk of life-threatening hemorrhage associated with systemic TPA in a patient with new anemia and suspected GI bleeding. The family expressed understanding of his condition and understanding of the heightened risk of life-threatening bleeding, but still urged that we needed to get TPA. Immediately after giving IV TPA, patient had a tonic clonic seizure (witnessed on EEG) and became obtunded with acute hypoxic and hypercarbic respiratory failure and was emergently intubated (see separate procedure note for details). 11/10: remains intubated. encephalopathy persists. hgb stable s/p TPA. ~350cc bloody OG tube output, but this is slowing down. 11/11: more awake. on SBT. follows commands. 11/12: remains extubated. off vasopressors. no changes in mental status. 11/18/17 CCM Reconsult Note Patient was transferred to ICU today after a Halicat was called for AMS, hypoxia , high fever. Apparently patient was lethargic since a.m. in the last hour had been unresponsive and hence Halicat was called. Patient had a fever of 101.4 in a.m., T-max is 101.6. I immediately evaluated the patient in the ICU. Patient is completely unresponsive, oxygen saturation 87% on 4 L nasal cannula. Hypopneic. No response to deep pain. Patient was confirmed to be a full code and I proceeded with endotracheal intubation place him on mechanical ventilation as patient was not protecting airway. More history was obtained from discussion with ID Dr. Jalloh. She indicated patient had been increasingly lethargic with fever and also had urinary retention.She has discontinued Ertapenem, and started on meropenem, vancomycin and micafungin. Cultures have been sent and are pending now. Source of sepsis appears to be aspiration pneumonia versus UTI. Repeat UA and panculture pending at this time. Patient was borderline hypotensive prior to intubation and I have started on Levophed to avoid hypotension post intubation. Receiving 1 L normal saline bolus now, give additional fluid bolus if patient requires continued Levophed will place central line 11/19: remains intubated. holding aggrenox for possible thoracentesis today, but family hesitant to consent with concerns over bleeding risk. Cr remains elevated. discussion with Dr. Bernal, unlikely to benefit currently from draining effusion, so at his recommendation, will proceed with attempted weaning from mechanical ventilation and treat effusion conservatively. 11/20: Overnight /early this a.m. ,the patient was noted to have large amount of rectal bleeding. Aggrenox held since 11/18, 2/2 reintubation. Type and screen ordered. Serial H&H currently be performed. Hemodynamically stable. GI has been reconsulted. Protonix previously given PRN, will schedule BID. Patient was reintubated emergently 11/18, plan for continue CPAP trials. Tube feedings until evaluation by GI. ASA placed on hold , in the setting of GI bleeding. 11/21: EGD and colonoscopy performed yesterday. Patient was noted to be constipated ,disimpacted per GI. Patient noted to have hemorrhoids which was clipped. No further bleeding throughout the night. Chest x-ray showed improvement. CPAP trials initiated this a.m.. ASA 81 mg resumed. 11/22: Patient tolerated CPAP trials approximately 13 hours yesterday. Initiation of tube feeds per GI yesterday, no residuals. This am , family concerned patient not responsive. CT brain , ammonia level and EEG pending. Neurology has been reconsulted. Upon my entering the room, this afternoon, the patient was awake, tracking and squeezing my hand upon commands, with right hand. The patient received 1 u PRBC for Hgb 7.2. Post transfusion CBC pending. Plan for quantification of pleural fluid for possible thoracentesis in a.m.. 11/23: No acute events overnight. Patient remains off all sedation. Noted spontaneous eye opening, tracking following commands squeezing hands right greater than left. Neurology following plan for MRI this a.m., repeat EEG pending. Hemoglobin stable this a.m.. Chest x-ray slight improvement, plan for quantification via ultrasound of pleural effusions for possible thoracentesis today. 3 failed attempts at CPAP trials yesterday. 1548-MRI resulted findings consistent of small areas of acute cortical infarct, new since 11/09/2017. I contacted neurology, Dr. Geronimo informed of results. After Dr. Palma's review of imaging and records, it was determined most likely cardioembolic since is affecting both sides and failure with aspirin and Persantine. Ischemic stroke heparin protocol initiated. Careful review secondary to patient history of GI bleed 11/20, thought to be emanating from hemorrhoid ,however due to poor suboptimal prep, they unable to have optimal visualization per Dr. Jones. 11/24: Late entry note. Patient seen and evaluated 614. No acute events overnight. Patient continues on heparin infusion no active signs of bleeding. PTT within therapeutic range. The patient is less responsive this a.m., spontaneous eye opening, not following my commands. Not moving his extremities spontaneously for me as previously performed yesterday. tube feeds reinitiated. Chest x-ray showed further improvement in aeration of lungs the patient continues on FiO2 of 0.35. Plan for CPAP trials today. 11/25: No acute events overnight. Neurological status unchanged. Spontaneous eye opening patient continues not following any commands. Dr. Geronimo at bedside evaluating patient, no change. Patient tolerated CPAP trials approximately 12 hours yesterday. Tolerating tube feeds. Chest x-ray remains unchanged from yesterday. Hemoccult stool negative. Heparin infusion continued. family at bedside. 11/26: Late entry note. Patient seen at 1240pm. Last night the patient was noted to be continuously hyperglycemic. Levemir added to medication regimen 10 mg/day hemoglobin dropped 2 g/dL in 2 days hemoglobin now 7.7, patient to be transfused 1 unit packed red blood. No obvious signs of bleeding Hemoccult was negative. Patient continues on heparin infusion, patient may require tracheostomy and PEG in the near future . Plan to transition to p.o. anticoagulation post procedures. Neurologically the status is unchanged the patient is opens eyes spontaneously no movement of extremities upon my evaluation. Continued CPAP trials currently greater than 6 hours. 11/27: At 1000am, the patient was noted to have melena, approximated at 150 cc per RN evaluation. Heparin infusion discontinued/placed on hold at 10 AM. Stool for Hemoccult blood sent, GI was contacted and informed of the above events. Stat CT of the abdomen and pelvis with p.o. contrast ordered, results pending. Patient previously had been tolerating trickle feeds at 10 cc an hour with no residuals, after initiation of Reglan 5 mg every 8 hours yesterday. Neurologically the patient status is unchanged. Patient does have spontaneous eye opening but does not follow my commands and does not move extremities. Patient's daughter is at bedside, discussed the above events at which she was present for, she is requesting a repeat colonoscopy. I informed her that a CT of the abdomen and pelvis will be obtained, serial hemoglobin will be evaluated and if needed transfusion will be provided and gastroenterology has been contacted and will determine further management if an invasive procedure is required. Hemoglobin continues to be monitored serially, results pending for 10 AM. The patient received 1 unit packed red blood cells, and current hemoglobin trended overnight 8.9 to 8.2 this a.m., posttransfusion. 11/28: hgb continues to decline despite being off heparin. no additional GI interventions are available at this time. clearly the patient has failed anticoagulation with 2 life-threatening bleeding episodes. Although it is clear he may have additional strokes off anticoagulation, we have clear evidence that we are hurting his overall clinical care with his anticoagulation. I explained this at length to the daughter and medical decision maker. however, she insists that she would rather see him of bleeding rather than have any more strokes , and insists that "we can always keep giving him blood". I explained that blood is not without risk, and there is significant risk to anticoagulation, but she is insistent that he be given anticoagulation to prevent further strokes and she has weighed the risks and benefits after having full informed consent, insists upon us restarting the heparin drip. At her insistence, I have restarted it. In addition, I have counseled her that I do not think he will survive this hospitalization, and he will require tracheostomy for further aggressive care. She states that we are not at "day 14" on the vent, and it is not time for a tracheostomy yet. This is a second intubation and we are certainly at risk for complications from endotracheal intubation, and tracheostomy would be the most appropriate next step for this patient, but the family is refusing until WednesdayDecember 01. 11/29 Patient remains intubated, on no sedation. Afebrile. 11/30 No events overnight. Patient tolerated CPAP for most of day yesterday. Remains on Heparin drip. 12/01 Patient remains intubated tolerated CPAP for several hrs yesterday. s/p CT guided right thoracentesis with removal 500ml pleural fluid. On Heparin drip 12/02 No events overnight. Heparin drip stopped this morning for trach and PEG placement today. Afebrile. 12/03 Patient s/p trach and PEG tube placement yesterday. Had bleeding from around trach and PEG tube insertion sites Heparin drip held last night. s/p transfusion 1u PRBC yesterday Hgb 8.0 this morning. Afebrile. On no sedation. 12/04: Continues to have bruising from PEG tube insertion site. Trach site appears to have stopped. Hemoglobin 7 the same receiving 1 unit FFP and 1 PRBCs. Tube feeds of been resumed. On no sedation. 12/05: Afebrile. No further bleeding noted from the tracheostomy site. Overnight reported by the RN that the PEG tube site continues to bleed Surgicel was placed around the opening, small amount of bleeding still noted. Patient hemoglobin remained 7 patient to be transfused 1 unit PRBC's fibrinogen level pending INR within normal limits. 12/06 Patient s/p transfusion 2u PRBC yesterday Hgb 9.5 this morning from 7.2 last night. No bleeding from trach site however patient still having rectal bleeding. 12/07 No events overnight. On ventilator via trach Hgb 9.8 this morning for colonoscopy today. 12/08: seen and examined around 06:30am. no significant change in mental status. hgb 8.9 this AM. remains on heparin drip at [facility]. 12/09: no improvements or changes. very deconditioned. garcia has remained in without clear indication. had 1 episode of urinary retention, but this is a clear source of infection and an additional serious infection would certainly be life-threatening. 12/10 Patient is now on TP's with 28% FIO2, Afebrile. On Heparin drip. 12/11: remains on t-piece x > 48h. no change in neuro exam. remains on heparin drip with stable hgb 7.8. Subjective: 12/12: asked to see patient again today by the hospitalist service for change in condition. I have evaluated the patient and he does not clinically appear any different than yesterday. HR actually lower than yesterday. bladder scan suggestive of 600cc retention. patient has had urinary retention before, although has also had multiple hospital acquired urinary tract infections. risk/ benefit at this time would be in favor of serial q6h straight catheterizations. remains hemodynamically stable. some emesis today and evidence of ileus. 12/31 Reconsult for resp distress Patient is 77 yo with chronic resp failure, trach/PEG tube placement, CVA transferred to [facility] for resp distress trach changes to #6 and patient was placed on mechanical ventilation. CXR showed increasing consolidation patient was given Lasix prior to arrival to [facility]. 01/01 Patient is on ventilator via trach. Afebrile. 01/02 No events overnight. On no drips, Afebrile, CPAP 15/5 with 35% FIO2 overnight. 01/03 Remained on TP breathing comfortably. CXR shows bilateral effusions. Will get CT chest. Give single dose of lasix. ID consulted and following, no fever in 24 hours 01/04: Remains unresponsive, fever trending down. Sputum culture now growing Klebsiella and ESBL E. coli. Urine culture and wound culture also growing ESBL E. coli. Chest tube placed on the right side yesterday with 1.35 L output since placement. Urine output excellent with single dose of Lasix 2.5 L in 24 hours. No fever in 24 hours. Repeat 40 mg IV Lasix 1 [facility] RECONSULT NOTE 02/08/18: Mr. Glynn is a 77-year-old man who is known to our service. In short, he was initially admitted with possible optic neuritis versus temporal arteritis in September. Care complicated by an STEMI, multiple infections with healthcare associated pneumonia UTIs. During hospitalization he also received TPA for Stroke, MRI of the brain performed on 12/24/2017, showed infarction involving the left corpus callosum and splenium of the corpus callosum. The patient had undergone tracheostomy placement. And since last month had been on hospitalist service and off ventilator. He is currently receiving Levaquin for stenotrophomonas infection, Diflucan for candidemia. Apparently patient was noted to aspirate earlier this a.m. At 7250 AM patient was found unresponsive pulseless rhythm asystole and CPR was started. Total 3 amp of epinephrine given. Patient had a cuff less trach with evidence of aspiration, large amount of tube feeds aspirated from tracheostomy tube. This was exchanged for a 8.0 Shiley tracheostomy cuffed. With improved bag and mask ventilation and after 3 epinephrine, 1 amp of calcium, 1 amp of bicarb, patient regained ROSC SUBJ 02/09/18: Remains very critical not on any sedation he is unresponsive eyes are spontaneously open but no tracking. Very slight withdrawal to pain on the upper extremities. CT of the head unremarkable. Currently borderline hypotensive off pressors. Received 2 units of PRBC for hemoglobin 6.6 yesterday. Prognosis remained poor. Neurology consulted per family request 02/10/18: Remains critical with no improvement in neuro status or clinical status. Eyes are spontaneously open but no response to threat no tracking. Neurology consulted MRI and EEG pending at this time. Currently remains on Levophed at 1 mcg/min. Chest x-ray with bilateral infiltrates sputum culture growing GNR. Na 155. Free water flushes and half-normal saline rate increased. 02/11: Remains unresponsive off all sedation. Osmolality slowly returning to baseline. Antibiotics appropriate for organism. Tube feeds tolerated at 50 mL' s per hour. Unable to wean from mechanical ventilation. 02/12: Osmolality slowly returning to baseline. Tube feeds now tolerated at 60 mL's per hour. Unable to wean from mechanical ventilation due to fatigue. 02/13: Placed on spontaneous breathing trial this morning but required 18 of pressure support to maintain an adequate minute volume. Will work from this point and attempt to wean pressure support over the next many days. Will place back on mechanical rate nightly. Anticoagulation is been particularly cumbersome and made more difficult by Diflucan. Will restart Coumadin again this morning as INR is declined to 2.2 Objective Vital Signs / I&O: Vital Signs 02/12/18 10:00 02/12/18 12:00 02/12/18 12:16 Temperature 97.4 F L Pulse Rate 82 88 90 Respiratory Rate 15 19 Blood Pressure 116/63 Pulse Oximetry 98 99 02/12/18 14:00 02/12/18 16:00 02/12/18 17:13 Temperature 98.1 F Pulse Rate 82 82 Respiratory Rate 30 H 15 Blood Pressure 111/64 Pulse Oximetry 98 98 02/12/18 18:00 02/12/18 20:00 02/12/18 20:09 Temperature 98.1 F Pulse Rate 86 86 Respiratory Rate 19 18 Blood Pressure 122/64 Pulse Oximetry 100 99 02/12/18 20:14 02/12/18 22:00 02/12/18 23:18 Temperature Pulse Rate 92 H 87 Respiratory Rate 16 19 Blood Pressure Pulse Oximetry 99 02/13/18 00:00 02/13/18 02:00 02/13/18 04:00 Temperature 98.6 F 97.9 F Pulse Rate 87 87 86 Respiratory Rate 19 19 Blood Pressure 118/67 134/70 Pulse Oximetry 99 99 02/13/18 06:00 02/13/18 07:10 Temperature Pulse Rate 90 Respiratory Rate 21 Blood Pressure Pulse Oximetry 100 Intake & Output 02/12/18 02/13/18 02/13/18 18:59 06:59 18:59 Intake Total 3259 / 3259 1923 / 1923 Output Total 1200 / 1200 1300 / 1300 Balance 2058 / 2058 623 / 623 Weight 92.4 kg Intake: IV 2099 / 2099 1000 / 1000 1/2 Normal Saline Inj 1,000 ML 2000 / 2000 1000 / 1000 @ 150 mls/hr IV.CONT .Q6H40M [facility] Rx#:[id number] Merrem Inj 1,000 MG In NS Inj 100 / 100 100 ML @ 200 mls/hr IV.SIG Q12H [facility] Rx#:[id number] Oral 0 / 0 Tube Feeding 719 / 719 803 / 803 Tube Irrigant 120 / 120 120 / 120 Water Bolus Amount 320 / 320 Output: Urine 1300 / 1300 Urine Amount (Catheter) 1200 / 1200 Indwelling Urethral Catheter 1200 / 1200 Other: Date of Last Bowel Movement 02/11/18 02/11/18 # Bowel Movements 0 Result Diagrams: 02/13/18 06:35 02/13/18 04:29 Objective Remarks: GENERAL: Patient is 77 yo encephalopathic, unresponsive on the vent. Eyes are closed. SKIN: Warm and dry. Stage IV sacral decubitus. HEAD: Normocephalic. EYES: No scleral icterus. No injection. Pupils equal sluggish reaction to light. NECK: Cuffed tracheostomy tube in place. Moderate secretions persist. CARDIOVASCULAR: S1-S2 normal no murmurs. No JVD. RESPIRATORY: Breath sounds equal bilaterally. Moderate wheezes and rhonchi GASTROINTESTINAL: Abdomen soft. +PEG tube. tube feeds at 60 ml per hour MUSCULOSKELETAL: No cyanosis, or edema. NEURO: Eyes are closed. No tracking no response to voice or visual threat. Slight withdrawal to the upper extremity, lower extremities remain flaccid. Assessment and Plan - Assessment and Plan Plan: Assessment: Asystole/Cardiac arrest Worsening encephalopathy most likely anoxia contributing Aspiration pneumonia Acute on chronic hypoxemic and hypercapnic resp failure Combined shock, septic and cardiogenic Healthcare associated pneumonia, stenotrophomonas Candidemia UTI with ESBL E. coli Hyponatremia CVA Anemia requiring transfusion Sacral decubitus ulcer s/p NSTEMI Optic neuritis Status post tracheostomy and PEG tube placement Plan: Impression: Neuro -Acute worsening of encephalopathy secondary to systolic cardiac arrest, anoxia -CT head 02/08/[address] Pereira reconsulted per family request -MRI EEG today, pending -History of L ENID infarct. Status post systemic TPA on November 09 -On warfarin INR 3.9, put on hold, pharmacy dosing -Neuropsychology has followed. Continue Ritalin -Optic neuritis. Status post treatment with IV hydrocortisone -Remains unresponsive. CV: -Asystole/cardiac arrest seems secondary to hypoxia and hypercapnia from severe aspiration -Levophed to keep map above 65 -s/p IV fluid normal saline 2 L bolus, 2U PRBC -Increase half-normal saline to 150 ml per hour due to hypernatremia, increase free water flushes to 300 mL every 6 -Continue Coumadin, on hold now due to the INR 3.9 -Echo 10/19: LV systolic function is moderately reduced, EF 40-45%. Cardiology has followed Dr. Hernández -Cardura 2mg daily and Coreg 3.125mg BID on hold due to hypotension. On Lipitor 80mg qhs -Vasopressor dependent. Pulm: -Cardiac arrest seems to be secondary to respiratory arrest. Evidence of aspiration at the time of arrest -Cuff less tracheostomy tube removed and new Shiley 8 cuffed tracheostomy placed 02/08/18 -PRVC/AC ventilation. DuoNeb every 6 hours scheduled and as needed -Failed CPAP due to apnea -ICU vent bundle. Pulm toilet, trach care. -GNR in sputum culture, On Levaquin for stenotrophomonas, Diflucan for candidemia, meropenem for previous ESBL E Coli HCAP -Antibioticn antifungal coverage remains appropriate. GI -Currently tube feeds at 10 mL/h, advance as tolerated -On Pepcid 10mg BID -Free water flushes 300 mils every 6 hours -Having BMs -Tube feeds at 60 mL's per hour 02/12. : -Monitor renal function, electrolytes replacement per protocol -Increase half-normal saline to 150 ml per hour due to hypernatremia, increase free water flushes to 300 mL every 6 ID -Patient was receiving Levaquin for stenotrophomonas, Diflucan for candidemia -Added meropenem 02/08/18 for previous ESBL E. coli HCAP -Previous UTI with ESBL E. coli, Previous healthcare associated pneumonia with Klebsiella and ESBL E. coli -F/U blood and sputum culture and urine culture. GNR in sputum 02/08 -ID Dr. Jalloh following Skin -Sacral wound-Seen by Plastic surgery; debridement declined per patient's family -Wound care is following- apply dressings per wound management recommendations Heme: -Monitor hemoglobin closely. Status post 2 units PRBC on 02/08/2018 -Previous GI bleed; Status post EGD colonoscopy. GI has signed off, patient with healed rectal ulcers and hemorrhoids. -INR therapeutic -If recurrent anemia will reconsult GI Endo -On SSI. Levemir for glycemic control GI prophylaxis- on Pepcid DVT prophylaxis- On Coumadin hold due to INR 3.9 Overall impression: Patient remains critically ill after aspiration with hypoxemic and hypercarbic respiratory failure leading to asystolic cardiac arrest. Ten minutes of CPR with return of spontaneous circulation after aggressive resuscitation following CPR patient remains hypoxemic and encephalopathy. Remains unresponsive, weak respiratory effort. Prognosis poor.
[2018-02-13 10:01] LABS: Eosinophils 4 % (0-4); Lymphocytes 11 % (9-44); Monocytes 10 % (0-8)
[2018-02-13 10:02] LABS: Platelet Estimate Normal (Normal); Platelet Morphology Normal (Normal)
[2018-02-13] MEDS: Hydrocortisone Acetate 25 MG Supp RECTAL SCH ×2 (11:18→21:37)
[2018-02-13] MEDS: Collagenase Oint 30 GM Tube TOPICAL SCH (11:18)
[2018-02-13] MEDS: Acetaminophen 325 MG Tablet PO PRN (15:42)
--- NOTE | 2018-02-13 16:42 | P.PN ---
Subjective Interval history: ON THE VENT UNRESPONSIVE Physical Exam Vital signs: Vital Signs 02/12/18 17:13 02/12/18 18:00 02/12/18 20:00 Temperature 98.1 F Pulse Rate 86 86 Respiratory Rate 15 19 Blood Pressure 122/64 Pulse Oximetry 98 100 02/12/18 20:09 02/12/18 20:14 02/12/18 22:00 Temperature Pulse Rate 92 H 87 Respiratory Rate 18 16 Blood Pressure Pulse Oximetry 99 02/12/18 23:18 02/13/18 00:00 02/13/18 02:00 Temperature 98.6 F Pulse Rate 87 87 Respiratory Rate 19 19 Blood Pressure 118/67 Pulse Oximetry 99 99 02/13/18 04:00 02/13/18 06:00 02/13/18 07:10 Temperature 97.9 F Pulse Rate 86 90 Respiratory Rate 19 21 Blood Pressure 134/70 Pulse Oximetry 99 100 02/13/18 08:00 02/13/18 10:00 02/13/18 11:23 Temperature 98.4 F Pulse Rate 90 88 Respiratory Rate 17 26 H Blood Pressure 122/63 Pulse Oximetry 99 98 02/13/18 12:00 02/13/18 14:00 02/13/18 15:50 Temperature 98.5 F Pulse Rate 97 H 101 H Respiratory Rate 27 H 25 H Blood Pressure 122/64 Pulse Oximetry 99 97 02/13/18 16:00 Temperature 99.1 F Pulse Rate 103 H Respiratory Rate 26 H Blood Pressure 123/69 Pulse Oximetry 99 Intake & Output 02/12/18 02/13/18 02/13/18 18:59 06:59 18:59 Intake Total 3259 / 3259 2022 / 2022 1100 / 1100 Output Total 1200 / 1200 1300 / 1300 Balance 2058 / 2058 723 / 723 1100 / 1100 Weight 92.4 kg Intake: IV 2100 / 2100 1100 / 1100 1100 / 1100 1/2 Normal Saline Inj 1,000 ML 2000 / 2000 1000 / 1000 1000 / 1000 @ 150 mls/hr IV.CONT .Q6H40M EDE Rx#:[id number] Merrem Inj 1,000 MG In NS Inj 100 / 100 100 / 100 100 / 100 100 ML @ 200 mls/hr IV.SIG Q12H EDE Rx#:[id number] Oral 0 / 0 Tube Feeding 719 / 719 803 / 803 Tube Irrigant 120 / 120 120 / 120 Water Bolus Amount 320 / 320 Output: Urine 1300 / 1300 Urine Amount (Catheter) 1200 / 1200 Indwelling Urethral Catheter 1200 / 1200 Other: Date of Last Bowel Movement 02/11/18 02/11/18 02/11/18 # Bowel Movements 0 Narrative: GENERAL: WDWN male patient, UNRESPONSIVE. . SKIN: Warm and dry. +sacral decub per wound care notes. HEAD: Atraumatic. Normocephalic. EYES: Pupils equal and round. No scleral icterus. No injection or drainage. ENT: No nasal bleeding or discharge. Mucous membranes pink and moist. NECK: Trachea midline. Trach in place. CARDIOVASCULAR: Regular rate and rhythm. RESPIRATORY: No accessory muscle use. Clear to auscultation. Breath sounds equal bilaterally. GASTROINTESTINAL: Abdomen soft, non-tender, nondistended. PEG in place. GENITOURINARY: [place] in place - placed 01/21 MUSCULOSKELETAL: Extremities without clubbing, cyanosis, or edema. NEUROLOGICAL: Awake. Unable to follow commands. Nonverbal. PSYCHIATRIC: Calm. - Urinary Catheter Management Straight Cath placed during this visit: yes Urethral indwelling: Yes Reason for continuing: Acute urinary retention Insertion date: 01/21/18 Insertion time: 08:00 Indwelling Urethral Catheter Cath placed during this visit: yes, but has since been removed by the nurse Urethral indwelling: Yes Reason for continuing: Terminally ill/Comfort care Insertion date: 01/21/18 Insertion time: 16:18 Removal date: 01/20/18 Removal time: 15:15 Results - Labs CBC & Chem 7: 02/13/18 06:35 02/13/18 04:29 Laboratory Results - last 24 hr 02/12/18 02/13/18 02/13/18 22:28 04:29 04:29 WBC RBC Hgb Hct MCV MCH MCHC RDW Plt Count MPV Prelim Diff (Auto) WBC Differential Seg Neuts % (Manual) Band Neuts % (Manual) Lymphocytes % (Manual) Monocytes % (Manual) Eosinophils % (Manual) Abs Neuts (Manual) Differential Comment Platelet Estimate Platelet Morphology PT 22.3 H INR 2.2 Sodium 151 H Potassium 3.9 Chloride 119 H Carbon Dioxide 25.7 Anion Gap 6 BUN 64 H Creatinine 1.31 H Estimated GFR 53 L POC Glucose 314 H Random Glucose 243 H Calcium 7.6 L 02/13/18 02/13/18 02/13/18 04:56 06:35 11:37 WBC 6.1 RBC 2.71 L Hgb 7.2 L Hct 23.4 L MCV 86.5 MCH 26.7 L MCHC 30.9 L RDW 20.1 H Plt Count 182 MPV 9.3 Prelim Diff (Auto) Manual diff required WBC Differential Manual diff final Seg Neuts % (Manual) 73 H Band Neuts % (Manual) 2 Lymphocytes % (Manual) 11 Monocytes % (Manual) 10 H Eosinophils % (Manual) 4 Abs Neuts (Manual) 4.6 Differential Comment . Platelet Estimate Normal Platelet Morphology Normal PT INR Sodium Potassium Chloride Carbon Dioxide Anion Gap BUN Creatinine Estimated GFR POC Glucose 260 H 285 H Random Glucose Calcium Microbiology 02/08/18 10:24 Blood - Peripheral Aerobic Blood Culture - Final No growth in 5 days 02/08/18 10:24 Blood - Peripheral Anaerobic Blood Culture - Final No growth in 5 days 02/11/18 13:40 Blood - Peripheral Aerobic Blood Culture - Preliminary No growth in 2 days 02/11/18 13:40 Blood - Peripheral Anaerobic Blood Culture - Preliminary No growth in 2 days 02/11/18 13:46 Blood - Peripheral Aerobic Blood Culture - Preliminary No growth in 2 days 02/11/18 13:46 Blood - Peripheral Anaerobic Blood Culture - Preliminary No growth in 2 days 02/08/18 13:10 Blood - Peripheral Aerobic Blood Culture - Final No growth in 5 days 02/08/18 13:10 Blood - Peripheral Anaerobic Blood Culture - Final QNS - See aerobic report. Assessment and Plan - Plan RESPIRATORY FAILURE POST C/P ARREST S/P cva S/P RI S/P trach ACUTE ASPIRATION plan VENT SUPPORT PULM TOILET ANTIBX PER ID OUTLOOK POOR
[2018-02-13] MEDS: Insulin Detemir Inj 1,000 UNIT/10 ML Vial SQ SCH (23:15)
[2018-02-14] MEDS: Sodium Chloride 0.45 % Inj 1,000 ML IV.CONT SCH ×4 (00:25→13:05)
[2018-02-14] MEDS: Insulin NovoLIN Regular Correctional Sugar Inj SQ SCH ×4 (00:26→18:18)
[2018-02-14 04:45] LABS: Hematocrit 23.7 % (39.0-51.0); Hemoglobin 7.4 gm/dL (13.0-17.0); Mean Corpuscular HGB Conc 31.3 % (32.0-36.0); Mean Corpuscular Volume 86.1 fL (80.0-100.0); Mean Platelet Volume 9.3 fL (7.0-11.0); Platelet Count 175 th/mm3 (150-450); Red Blood Count 2.75 mil/mm3 (4.50-5.90); White Blood Count 6.5 th/mm3 (4.0-11.0)
[2018-02-14 04:46] LABS: INR 2.1 Ratio; Prothrombin Time 21.3 sec (9.8-11.6)
[2018-02-14 05:06] LABS: Calcium 7.3 mg/dL (8.5-10.1); Carbon Dioxide 24.9 meq/L (21.0-32.0)
[2018-02-14 05:56] LABS: Eosinophils 6 % (0-4); Lymphocytes 27 % (9-44); Monocytes 7 % (0-8); Platelet Estimate Normal (Normal); Platelet Morphology Normal (Normal)
[2018-02-14] MEDS: Famotidine 20 MG Tablet PO SCH ×2 (08:07→21:37)
[2018-02-14] MEDS: Insulin Detemir Inj 1,000 UNIT/10 ML Vial SQ SCH ×2 (08:08→21:39)
[2018-02-14] MEDS: Hydrocortisone Acetate 25 MG Supp RECTAL SCH ×2 (08:08→21:38)
[2018-02-14] MEDS: Polyethylene Glycol 3350 17 GM Packet PO SCH (08:09)
[2018-02-14] MEDS: Collagenase Oint 30 GM Tube TOPICAL SCH (08:09)
--- NOTE | 2018-02-14 08:41 | P.PN ---
Subjective Interval history: UNRESPONSIVE ON THE VENT Physical Exam Vital signs: Vital Signs 02/13/18 10:00 02/13/18 11:23 02/13/18 12:00 Temperature 98.5 F Pulse Rate 88 97 H Respiratory Rate 26 H 27 H Blood Pressure 122/64 Pulse Oximetry 98 99 02/13/18 14:00 02/13/18 15:50 02/13/18 16:00 Temperature 99.1 F Pulse Rate 101 H 103 H Respiratory Rate 25 H 26 H Blood Pressure 123/69 Pulse Oximetry 97 99 02/13/18 18:00 02/13/18 20:00 02/13/18 20:20 Temperature 99.1 F Pulse Rate 97 H 98 H Respiratory Rate 25 H 23 Blood Pressure 116/72 Pulse Oximetry 99 98 02/13/18 22:00 02/13/18 23:37 02/14/18 00:00 Temperature 99.1 F Pulse Rate 98 H 95 H Respiratory Rate 25 H 24 Blood Pressure 110/67 Pulse Oximetry 99 99 02/14/18 02:00 02/14/18 03:41 02/14/18 04:00 Temperature 98.9 F Pulse Rate 95 H 100 H Respiratory Rate 25 H 26 H Blood Pressure 134/66 Pulse Oximetry 99 100 02/14/18 06:00 02/14/18 08:05 Temperature Pulse Rate 101 H Respiratory Rate 25 H Blood Pressure Pulse Oximetry 99 Intake & Output 02/13/18 02/14/18 02/14/18 18:59 06:59 18:59 Intake Total 2930 / 2930 2100 / 2100 200 / 200 Output Total 1300 / 1300 900 / 900 Balance 1630 / 1630 1200 / 1200 200 / 200 Weight 95.5 kg Intake: IV 2100 / 2100 1100 / 1100 200 / 200 1/2 Normal Saline Inj 1,000 ML 2000 / 2000 1000 / 1000 @ 150 mls/hr IV.CONT .Q6H40M EDE Rx#:[id number] Diflucan 400 mg Premix Bag 200 200 / 200 ML @ 100 mls/hr IV.SIG Q24H EDE Rx#:[id number] Merrem Inj 1,000 MG In NS Inj 100 / 100 100 / 100 100 ML @ 200 mls/hr IV.SIG Q12H EDE Rx#:[id number] Tube Feeding 830 / 830 800 / 800 Water Bolus Amount 200 / 200 Output: Stool 0 / 0 Urine Amount (Catheter) 1300 / 1300 900 / 900 Indwelling Urethral Catheter 1300 / 1300 900 / 900 Other: Date of Last Bowel Movement 02/11/18 02/11/18 Narrative: GENERAL: WDWN male patient, UNRESPONSIVE. . SKIN: Warm and dry. +sacral decub per wound care notes. HEAD: Atraumatic. Normocephalic. EYES: Pupils equal and round. No scleral icterus. No injection or drainage. ENT: No nasal bleeding or discharge. Mucous membranes pink and moist. NECK: Trachea midline. Trach in place. CARDIOVASCULAR: Regular rate and rhythm. RESPIRATORY: No accessory muscle use. Clear to auscultation. Breath sounds equal bilaterally. GASTROINTESTINAL: Abdomen soft, non-tender, nondistended. PEG in place. GENITOURINARY: [place] in place - placed 01/21 MUSCULOSKELETAL: Extremities without clubbing, cyanosis, or edema. NEUROLOGICAL: Awake. Unable to follow commands. Nonverbal. PSYCHIATRIC: Calm. - Urinary Catheter Management Straight Cath placed during this visit: yes Urethral indwelling: Yes Reason for continuing: Acute urinary retention Insertion date: 01/21/18 Insertion time: 08:00 Indwelling Urethral Catheter Cath placed during this visit: yes, but has since been removed by the nurse Urethral indwelling: Yes Reason for continuing: Terminally ill/Comfort care Insertion date: 01/21/18 Insertion time: 16:18 Removal date: 01/20/18 Removal time: 15:15 Results - Labs CBC & Chem 7: 02/14/18 03:40 02/14/18 03:40 Laboratory Results - last 24 hr 02/13/18 02/13/18 02/13/18 06:35 11:37 18:16 WBC RBC Hgb Hct MCV MCH MCHC RDW Plt Count MPV Prelim Diff (Auto) WBC Differential Manual diff final Seg Neuts % (Manual) 73 H Band Neuts % (Manual) 2 Lymphocytes % (Manual) 11 Monocytes % (Manual) 10 H Eosinophils % (Manual) 4 Abs Neuts (Manual) 4.6 Differential Comment Platelet Estimate Normal Platelet Morphology Normal PT INR Sodium Potassium Chloride Carbon Dioxide Anion Gap BUN Creatinine Estimated GFR POC Glucose 285 H 287 H Random Glucose Calcium Prot Corrected Calcium Total Protein 02/13/18 02/14/18 02/14/18 22:49 03:40 03:40 WBC 6.5 RBC 2.75 L Hgb 7.4 L Hct 23.7 L MCV 86.1 MCH 27.0 MCHC 31.3 L RDW 20.0 H Plt Count 175 MPV 9.3 Prelim Diff (Auto) Manual diff required WBC Differential Manual diff final Seg Neuts % (Manual) 60 Band Neuts % (Manual) Lymphocytes % (Manual) 27 Monocytes % (Manual) 7 Eosinophils % (Manual) 6 H Abs Neuts (Manual) 3.9 Differential Comment . Platelet Estimate Normal Platelet Morphology Normal PT INR Sodium 149 H Potassium 4.0 Chloride 117 H Carbon Dioxide 24.9 Anion Gap 7 BUN 66 H Creatinine 1.20 Estimated GFR 59 L POC Glucose 229 H Random Glucose 223 H Calcium 7.3 L* Prot Corrected Calcium 7.9 L Total Protein 6.0 L 02/14/18 02/14/18 03:40 05:38 WBC RBC Hgb Hct MCV MCH MCHC RDW Plt Count MPV Prelim Diff (Auto) WBC Differential Seg Neuts % (Manual) Band Neuts % (Manual) Lymphocytes % (Manual) Monocytes % (Manual) Eosinophils % (Manual) Abs Neuts (Manual) Differential Comment Platelet Estimate Platelet Morphology PT 21.3 H INR 2.1 Sodium Potassium Chloride Carbon Dioxide Anion Gap BUN Creatinine Estimated GFR POC Glucose 233 H Random Glucose Calcium Prot Corrected Calcium Total Protein Microbiology 02/08/18 10:24 Blood - Peripheral Aerobic Blood Culture - Final No growth in 5 days 02/08/18 10:24 Blood - Peripheral Anaerobic Blood Culture - Final No growth in 5 days 02/11/18 13:40 Blood - Peripheral Aerobic Blood Culture - Preliminary No growth in 2 days 02/11/18 13:40 Blood - Peripheral Anaerobic Blood Culture - Preliminary No growth in 2 days 02/11/18 13:46 Blood - Peripheral Aerobic Blood Culture - Preliminary No growth in 2 days 02/11/18 13:46 Blood - Peripheral Anaerobic Blood Culture - Preliminary No growth in 2 days 02/08/18 13:10 Blood - Peripheral Aerobic Blood Culture - Final No growth in 5 days 02/08/18 13:10 Blood - Peripheral Anaerobic Blood Culture - Final QNS - See aerobic report. Assessment and Plan - Plan RESPIRATORY FAILURE POST C/P ARREST S/P cva S/P [place] S/P trach ACUTE ASPIRATION plan VENT SUPPORT PULM TOILET ANTIBX PER ID OUTLOOK POOR
--- NOTE | 2018-02-14 10:19 | P.PNCC ---
Subjective Subjective Remarks/Hospital Course: This is a 77-year-old male who initially presented with vision changes and concern for optic neuritis versus temporal arteritis. His initial presentation was on 10/14. His hospital course has been complicated by an NSTEMI with troponins which peaked at 10, ESBL E. coli urinary tract infection, rectal bleeding suspected from bleeding hemorrhoids, acute anemia secondary to blood loss with hemoglobin started around 14 and is trended down to 9.7 this morning. On his initial MRA he was found to have significant atherosclerotic cerebrovascular disease in all vascular territories. Today, he had an acute mental status change and was obtunded. Rapid response and stroke alert was called. His initial NIH stroke scale was 22. Dr. goldstein had conversations with Dr. Ulloa and neurology as well as Dr. sierra with gastroenterology. GI feels comfortable with giving thrombolytics and neurology feels strongly that this patient would benefit from systemic IV TPA therapy. I evaluated the patient on arrival to the intensive care unit. The patient is arousable, but very somnolent. He is Khmer speaking, and it is very difficult to ascertain whether or not he can follow commands. He does move all extremities spontaneously, although it appears that his left side is weaker than his right. He has noted facial droop. CT head is negative for acute hemorrhage. CTA head neck is significant for the same multivessel cerebrovascular disease that was present on admission. Given the high-risk nature of the stroke as well as his acute anemia this hospitalization, in preparation for giving emergent IV systemic TPA, I placed an arterial line as well as a large-bore peripheral IV so that we could draw serial labs, monitor his hemoglobin, and give blood products if necessary. I also had an additional discussion with the family where I reconfirmed that their goals were aggressive and they fully understood the significant risk of life-threatening hemorrhage associated with systemic TPA in a patient with new anemia and suspected GI bleeding. The family expressed understanding of his condition and understanding of the heightened risk of life-threatening bleeding, but still urged that we needed to get TPA. Immediately after giving IV TPA, patient had a tonic clonic seizure (witnessed on EEG) and became obtunded with acute hypoxic and hypercarbic respiratory failure and was emergently intubated (see separate procedure note for details). 11/10: remains intubated. encephalopathy persists. hgb stable s/p TPA. ~350cc bloody OG tube output, but this is slowing down. 11/11: more awake. on SBT. follows commands. 11/12: remains extubated. off vasopressors. no changes in mental status. 11/18/17 CCM Reconsult Note Patient was transferred to ICU today after a Halicat was called for AMS, hypoxia , high fever. Apparently patient was lethargic since a.m. in the last hour had been unresponsive and hence Halicat was called. Patient had a fever of 101.4 in a.m., T-max is 101.6. I immediately evaluated the patient in the ICU. Patient is completely unresponsive, oxygen saturation 87% on 4 L nasal cannula. Hypopneic. No response to deep pain. Patient was confirmed to be a full code and I proceeded with endotracheal intubation place him on mechanical ventilation as patient was not protecting airway. More history was obtained from discussion with ID Dr. Jalloh. She indicated patient had been increasingly lethargic with fever and also had urinary retention.She has discontinued Ertapenem, and started on meropenem, vancomycin and micafungin. Cultures have been sent and are pending now. Source of sepsis appears to be aspiration pneumonia versus UTI. Repeat UA and panculture pending at this time. Patient was borderline hypotensive prior to intubation and I have started on Levophed to avoid hypotension post intubation. Receiving 1 L normal saline bolus now, give additional fluid bolus if patient requires continued Levophed will place central line 11/19: remains intubated. holding aggrenox for possible thoracentesis today, but family hesitant to consent with concerns over bleeding risk. Cr remains elevated. discussion with Dr. Bernal, unlikely to benefit currently from draining effusion, so at his recommendation, will proceed with attempted weaning from mechanical ventilation and treat effusion conservatively. 11/20: Overnight /early this a.m. ,the patient was noted to have large amount of rectal bleeding. Aggrenox held since 11/18, 2/2 reintubation. Type and screen ordered. Serial H&H currently be performed. Hemodynamically stable. GI has been reconsulted. Protonix previously given PRN, will schedule BID. Patient was reintubated emergently 11/18, plan for continue CPAP trials. Tube feedings until evaluation by GI. ASA placed on hold , in the setting of GI bleeding. 11/21: EGD and colonoscopy performed yesterday. Patient was noted to be constipated ,disimpacted per GI. Patient noted to have hemorrhoids which was clipped. No further bleeding throughout the night. Chest x-ray showed improvement. CPAP trials initiated this a.m.. ASA 81 mg resumed. 11/22: Patient tolerated CPAP trials approximately 13 hours yesterday. Initiation of tube feeds per GI yesterday, no residuals. This am , family concerned patient not responsive. CT brain , ammonia level and EEG pending. Neurology has been reconsulted. Upon my entering the room, this afternoon, the patient was awake, tracking and squeezing my hand upon commands, with right hand. The patient received 1 u PRBC for Hgb 7.2. Post transfusion CBC pending. Plan for quantification of pleural fluid for possible thoracentesis in a.m.. 11/23: No acute events overnight. Patient remains off all sedation. Noted spontaneous eye opening, tracking following commands squeezing hands right greater than left. Neurology following plan for MRI this a.m., repeat EEG pending. Hemoglobin stable this a.m.. Chest x-ray slight improvement, plan for quantification via ultrasound of pleural effusions for possible thoracentesis today. 3 failed attempts at CPAP trials yesterday. 1548-MRI resulted findings consistent of small areas of acute cortical infarct, new since 11/09/2017. I contacted neurology, Dr. Geronimo informed of results. After Dr. Palma's review of imaging and records, it was determined most likely cardioembolic since is affecting both sides and failure with aspirin and Persantine. Ischemic stroke heparin protocol initiated. Careful review secondary to patient history of GI bleed 11/20, thought to be emanating from hemorrhoid ,however due to poor suboptimal prep, they unable to have optimal visualization per Dr. Jones. 11/24: Late entry note. Patient seen and evaluated 614. No acute events overnight. Patient continues on heparin infusion no active signs of bleeding. PTT within therapeutic range. The patient is less responsive this a.m., spontaneous eye opening, not following my commands. Not moving his extremities spontaneously for me as previously performed yesterday. tube feeds reinitiated. Chest x-ray showed further improvement in aeration of lungs the patient continues on FiO2 of 0.35. Plan for CPAP trials today. 11/25: No acute events overnight. Neurological status unchanged. Spontaneous eye opening patient continues not following any commands. Dr. Geronimo at bedside evaluating patient, no change. Patient tolerated CPAP trials approximately 12 hours yesterday. Tolerating tube feeds. Chest x-ray remains unchanged from yesterday. Hemoccult stool negative. Heparin infusion continued. family at bedside. 11/26: Late entry note. Patient seen at 1240pm. Last night the patient was noted to be continuously hyperglycemic. Levemir added to medication regimen 10 mg/day hemoglobin dropped 2 g/dL in 2 days hemoglobin now 7.7, patient to be transfused 1 unit packed red blood. No obvious signs of bleeding Hemoccult was negative. Patient continues on heparin infusion, patient may require tracheostomy and PEG in the near future . Plan to transition to p.o. anticoagulation post procedures. Neurologically the status is unchanged the patient is opens eyes spontaneously no movement of extremities upon my evaluation. Continued CPAP trials currently greater than 6 hours. 11/27: At 1000am, the patient was noted to have melena, approximated at 150 cc per RN evaluation. Heparin infusion discontinued/placed on hold at 10 AM. Stool for Hemoccult blood sent, GI was contacted and informed of the above events. Stat CT of the abdomen and pelvis with p.o. contrast ordered, results pending. Patient previously had been tolerating trickle feeds at 10 cc an hour with no residuals, after initiation of Reglan 5 mg every 8 hours yesterday. Neurologically the patient status is unchanged. Patient does have spontaneous eye opening but does not follow my commands and does not move extremities. Patient's daughter is at bedside, discussed the above events at which she was present for, she is requesting a repeat colonoscopy. I informed her that a CT of the abdomen and pelvis will be obtained, serial hemoglobin will be evaluated and if needed transfusion will be provided and gastroenterology has been contacted and will determine further management if an invasive procedure is required. Hemoglobin continues to be monitored serially, results pending for 10 AM. The patient received 1 unit packed red blood cells, and current hemoglobin trended overnight 8.9 to 8.2 this a.m., posttransfusion. 11/28: hgb continues to decline despite being off heparin. no additional GI interventions are available at this time. clearly the patient has failed anticoagulation with 2 life-threatening bleeding episodes. Although it is clear he may have additional strokes off anticoagulation, we have clear evidence that we are hurting his overall clinical care with his anticoagulation. I explained this at length to the daughter and medical decision maker. however, she insists that she would rather see him of bleeding rather than have any more strokes , and insists that "we can always keep giving him blood". I explained that blood is not without risk, and there is significant risk to anticoagulation, but she is insistent that he be given anticoagulation to prevent further strokes and she has weighed the risks and benefits after having full informed consent, insists upon us restarting the heparin drip. At her insistence, I have restarted it. In addition, I have counseled her that I do not think he will survive this hospitalization, and he will require tracheostomy for further aggressive care. She states that we are not at "day 14" on the vent, and it is not time for a tracheostomy yet. This is a second intubation and we are certainly at risk for complications from endotracheal intubation, and tracheostomy would be the most appropriate next step for this patient, but the family is refusing until WednesdayDecember 01. 11/29 Patient remains intubated, on no sedation. Afebrile. 11/30 No events overnight. Patient tolerated CPAP for most of day yesterday. Remains on Heparin drip. 12/01 Patient remains intubated tolerated CPAP for several hrs yesterday. s/p CT guided right thoracentesis with removal 500ml pleural fluid. On Heparin drip 12/02 No events overnight. Heparin drip stopped this morning for trach and PEG placement today. Afebrile. 12/03 Patient s/p trach and PEG tube placement yesterday. Had bleeding from around trach and PEG tube insertion sites Heparin drip held last night. s/p transfusion 1u PRBC yesterday Hgb 8.0 this morning. Afebrile. On no sedation. 12/04: Continues to have bruising from PEG tube insertion site. Trach site appears to have stopped. Hemoglobin 7 the same receiving 1 unit FFP and 1 PRBCs. Tube feeds of been resumed. On no sedation. 12/05: Afebrile. No further bleeding noted from the tracheostomy site. Overnight reported by the RN that the PEG tube site continues to bleed Surgicel was placed around the opening, small amount of bleeding still noted. Patient hemoglobin remained 7 patient to be transfused 1 unit PRBC's fibrinogen level pending INR within normal limits. 12/06 Patient s/p transfusion 2u PRBC yesterday Hgb 9.5 this morning from 7.2 last night. No bleeding from trach site however patient still having rectal bleeding. 12/07 No events overnight. On ventilator via trach Hgb 9.8 this morning for colonoscopy today. 12/08: seen and examined around 06:30am. no significant change in mental status. hgb 8.9 this AM. remains on heparin drip at [facility]. 12/09: no improvements or changes. very deconditioned. garcia has remained in without clear indication. had 1 episode of urinary retention, but this is a clear source of infection and an additional serious infection would certainly be life-threatening. 12/10 Patient is now on TP's with 28% FIO2, Afebrile. On Heparin drip. 12/11: remains on t-piece x > 48h. no change in neuro exam. remains on heparin drip with stable hgb 7.8. Subjective: 12/12: asked to see patient again today by the hospitalist service for change in condition. I have evaluated the patient and he does not clinically appear any different than yesterday. HR actually lower than yesterday. bladder scan suggestive of 600cc retention. patient has had urinary retention before, although has also had multiple hospital acquired urinary tract infections. risk/ benefit at this time would be in favor of serial q6h straight catheterizations. remains hemodynamically stable. some emesis today and evidence of ileus. 12/31 Reconsult for resp distress Patient is 77 yo with chronic resp failure, trach/PEG tube placement, CVA transferred to [place] for resp distress trach changes to #6 and patient was placed on mechanical ventilation. CXR showed increasing consolidation patient was given Lasix prior to arrival to [place]. 01/01 Patient is on ventilator via trach. Afebrile. 01/02 No events overnight. On no drips, Afebrile, CPAP 15/5 with 35% FIO2 overnight. 01/03 Remained on TP breathing comfortably. CXR shows bilateral effusions. Will get CT chest. Give single dose of lasix. ID consulted and following, no fever in 24 hours 01/04: Remains unresponsive, fever trending down. Sputum culture now growing Klebsiella and ESBL E. coli. Urine culture and wound culture also growing ESBL E. coli. Chest tube placed on the right side yesterday with 1.35 L output since placement. Urine output excellent with single dose of Lasix 2.5 L in 24 hours. No fever in 24 hours. Repeat 40 mg IV Lasix 1 [facility] RECONSULT NOTE 02/08/18: Mr. Glynn is a 77-year-old man who is known to our service. In short, he was initially admitted with possible optic neuritis versus temporal arteritis in September. Care complicated by an STEMI, multiple infections with healthcare associated pneumonia UTIs. During hospitalization he also received TPA for Stroke, MRI of the brain performed on 12/24/2017, showed infarction involving the left corpus callosum and splenium of the corpus callosum. The patient had undergone tracheostomy placement. And since last month had been on hospitalist service and off ventilator. He is currently receiving Levaquin for stenotrophomonas infection, Diflucan for candidemia. Apparently patient was noted to aspirate earlier this a.m. At 7250 AM patient was found unresponsive pulseless rhythm asystole and CPR was started. Total 3 amp of epinephrine given. Patient had a cuff less trach with evidence of aspiration, large amount of tube feeds aspirated from tracheostomy tube. This was exchanged for a 8.0 Shiley tracheostomy cuffed. With improved bag and mask ventilation and after 3 epinephrine, 1 amp of calcium, 1 amp of bicarb, patient regained ROSC SUBJ 02/09/18: Remains very critical not on any sedation he is unresponsive eyes are spontaneously open but no tracking. Very slight withdrawal to pain on the upper extremities. CT of the head unremarkable. Currently borderline hypotensive off pressors. Received 2 units of PRBC for hemoglobin 6.6 yesterday. Prognosis remained poor. Neurology consulted per family request 02/10/18: Remains critical with no improvement in neuro status or clinical status. Eyes are spontaneously open but no response to threat no tracking. Neurology consulted MRI and EEG pending at this time. Currently remains on Levophed at 1 mcg/min. Chest x-ray with bilateral infiltrates sputum culture growing GNR. Na 155. Free water flushes and half-normal saline rate increased. 02/11: Remains unresponsive off all sedation. Osmolality slowly returning to baseline. Antibiotics appropriate for organism. Tube feeds tolerated at 50 mL' s per hour. Unable to wean from mechanical ventilation. 02/12: Osmolality slowly returning to baseline. Tube feeds now tolerated at 60 mL's per hour. Unable to wean from mechanical ventilation due to fatigue. 02/13: Placed on spontaneous breathing trial this morning but required 18 of pressure support to maintain an adequate minute volume. Will work from this point and attempt to wean pressure support over the next many days. Will place back on mechanical rate nightly. Anticoagulation is been particularly cumbersome and made more difficult by Diflucan. Will restart Coumadin again this morning as INR is declined to 2.2 02/14: Remains very weak. Essentially unresponsive. Tolerates brief periods of spontaneous breathing trial blood pressure support must be markedly elevated to the 1820 range. State of hydration gradually improving as osmolality declines and serum creatinine improves. Will continue hypotonic solutions IV. Objective Vital Signs / I&O: Vital Signs 02/13/18 11:23 02/13/18 12:00 02/13/18 14:00 Temperature 98.5 F Pulse Rate 97 H 101 H Respiratory Rate 26 H 27 H Blood Pressure 122/64 Pulse Oximetry 98 99 02/13/18 15:50 02/13/18 16:00 02/13/18 18:00 Temperature 99.1 F Pulse Rate 103 H 97 H Respiratory Rate 25 H 26 H Blood Pressure 123/69 Pulse Oximetry 97 99 02/13/18 20:00 02/13/18 20:20 02/13/18 22:00 Temperature 99.1 F Pulse Rate 98 H 98 H Respiratory Rate 25 H 23 Blood Pressure 116/72 Pulse Oximetry 99 98 02/13/18 23:37 02/14/18 00:00 02/14/18 02:00 Temperature 99.1 F Pulse Rate 95 H 95 H Respiratory Rate 25 H 24 Blood Pressure 110/67 Pulse Oximetry 99 99 02/14/18 03:41 02/14/18 04:00 02/14/18 06:00 Temperature 98.9 F Pulse Rate 100 H 101 H Respiratory Rate 25 H 26 H Blood Pressure 134/66 Pulse Oximetry 99 100 02/14/18 08:00 02/14/18 08:05 02/14/18 10:00 Temperature 100.6 F H Pulse Rate 101 H 108 H Respiratory Rate 29 H 25 H Blood Pressure 145/82 H Pulse Oximetry 99 99 Intake & Output 02/13/18 02/14/18 02/14/18 18:59 06:59 18:59 Intake Total 2930 / 2930 2100 / 2100 200 / 200 Output Total 1300 / 1300 900 / 900 Balance 1630 / 1630 1200 / 1200 200 / 200 Weight 95.5 kg Intake: IV 2100 / 2100 1100 / 1100 200 / 200 1/2 Normal Saline Inj 1,000 ML 2000 / 2000 1000 / 1000 @ 150 mls/hr IV.CONT .Q6H40M EDE Rx#:[id number] Diflucan 400 mg Premix Bag 200 200 / 200 ML @ 100 mls/hr IV.SIG Q24H EDE Rx#:[id number] Merrem Inj 1,000 MG In NS Inj 100 / 100 100 / 100 100 ML @ 200 mls/hr IV.SIG Q12H EDE Rx#:[id number] Tube Feeding 830 / 830 800 / 800 Water Bolus Amount 200 / 200 Output: Stool 0 / 0 Urine Amount (Catheter) 1300 / 1300 900 / 900 Indwelling Urethral Catheter 1300 / 1300 900 / 900 Other: Date of Last Bowel Movement 02/11/18 02/11/18 02/11/18 Result Diagrams: 02/14/18 03:40 02/14/18 03:40 Objective Remarks: GENERAL: Patient is 77 yo encephalopathic, unresponsive on the vent. Eyes are closed. SKIN: Warm and dry. Stage IV sacral decubitus. HEAD: Normocephalic. Tongue dry. EYES: No scleral icterus. No injection. Pupils equal sluggish reaction to light. NECK: Cuffed tracheostomy tube in place. Moderate secretions persist. CARDIOVASCULAR: S1-S2 normal no murmurs. No JVD. RESPIRATORY: Breath sounds equal bilaterally. Moderate wheezes and scattered rhonchi GASTROINTESTINAL: Abdomen soft. +PEG tube. tube feeds at 60 ml per hour MUSCULOSKELETAL: No cyanosis, or edema. NEURO: Eyes are closed. No tracking no response to voice or visual threat. Slight withdrawal to the upper extremity, lower extremities remain flaccid. Assessment and Plan - Assessment and Plan Plan: Assessment: Asystole/Cardiac arrest Worsening encephalopathy most likely anoxia contributing Aspiration pneumonia Acute on chronic hypoxemic and hypercapnic resp failure Combined shock, septic and cardiogenic Healthcare associated pneumonia, stenotrophomonas Candidemia UTI with ESBL E. coli Hyponatremia CVA Anemia requiring transfusion Sacral decubitus ulcer s/p NSTEMI Optic neuritis Status post tracheostomy and PEG tube placement Plan: Impression: Neuro -Acute worsening of encephalopathy secondary to systolic cardiac arrest, anoxia -CT head 02/08/[address] Pereira reconsulted per family request -MRI EEG today, pending -History of L ENID infarct. Status post systemic TPA on November 09 -On warfarin INR 3.9, put on hold, pharmacy dosing -Neuropsychology has followed. Continue Ritalin -Optic neuritis. Status post treatment with IV hydrocortisone -Remains unresponsive. CV: -Asystole/cardiac arrest seems secondary to hypoxia and hypercapnia from severe aspiration -Levophed to keep map above 65 -s/p IV fluid normal saline 2 L bolus, 2U PRBC -Increase half-normal saline to 150 ml per hour due to hypernatremia, increase free water flushes to 300 mL every 6 -Continue Coumadin, on hold now due to the INR 3.9 -Echo 10/19: LV systolic function is moderately reduced, EF 40-45%. Cardiology has followed Dr. Hernández -Cardura 2mg daily and Coreg 3.125mg BID on hold due to hypotension. On Lipitor 80mg qhs -Vasopressor dependent. Pulm: -Cardiac arrest seems to be secondary to respiratory arrest. Evidence of aspiration at the time of arrest -Cuff less tracheostomy tube removed and new Shiley 8 cuffed tracheostomy placed 02/08/18 -PRVC/AC ventilation. DuoNeb every 6 hours scheduled and as needed -Failed CPAP due to apnea -ICU vent bundle. Pulm toilet, trach care. -GNR in sputum culture, On Levaquin for stenotrophomonas, Diflucan for candidemia, meropenem for previous ESBL E Coli HCAP -Antibioticn antifungal coverage remains appropriate. GI -Currently tube feeds at 10 mL/h, advance as tolerated -On Pepcid 10mg BID -Free water flushes 300 mils every 6 hours -Having BMs -Tube feeds at 60 mL's per hour 02/12. : -Monitor renal function, electrolytes replacement per protocol -Increase half-normal saline to 150 ml per hour due to hypernatremia, increase free water flushes to 300 mL every 6 ID -Patient was receiving Levaquin for stenotrophomonas, Diflucan for candidemia -Added meropenem 02/08/18 for previous ESBL E. coli HCAP -Previous UTI with ESBL E. coli, Previous healthcare associated pneumonia with Klebsiella and ESBL E. coli -F/U blood and sputum culture and urine culture. GNR in sputum 02/08 -ID Dr. Jalloh following Skin -Sacral wound-Seen by Plastic surgery; debridement declined per patient's family -Wound care is following- apply dressings per wound management recommendations Heme: -Monitor hemoglobin closely. Status post 2 units PRBC on 02/08/2018 -Previous GI bleed; Status post EGD colonoscopy. GI has signed off, patient with healed rectal ulcers and hemorrhoids. -INR therapeutic -If recurrent anemia will reconsult GI Endo -On SSI. Levemir for glycemic control, increasing dosage. GI prophylaxis- on Pepcid DVT prophylaxis- On Coumadin hold due to INR 3.9 Overall impression: Patient remains critically ill after aspiration with hypoxemic and hypercarbic respiratory failure leading to asystolic cardiac arrest. Ten minutes of CPR with return of spontaneous circulation after aggressive resuscitation following CPR patient remains hypoxemic and encephalopathy. Remains unresponsive, weak respiratory effort. Glucose intolerance is worsening. Prognosis poor.
--- NOTE | 2018-02-14 11:21 | P.PNPAL ---
Reason for Visit Reason for visit: a. To assist with evaluation and management of symptoms including: pain, dyspnea, encephalopathy b. To assist medical decision maker(s) with: better understanding of current medical conditions; weighing benefits/burdens of medical treatment options; making medical treatment decisions. Subjective Subjective/Interval History: INTERVAL NOTE: Patient seen to reevaluate dyspnea, encephalopathy... The patient has been unresponsive since his cardiac arrest, and he remains on mechanical ventilation. Reported pt tolerates brief periods of spontaneous breathing trial. Na level trending down. Most recent EEg show generalized slowing. MRI show chronic changes, no diffusion abnormalities. Neurology noted anoxic encephalopathy. Family/Friend Interactions: No family at bedside. Advance Directives Living Will: Never completed Health Care Surrogate: Never completed Durable Power of Yard Engineer: Never completed Documented care wishes:: No written documentation of health care goals/preferences. . Objective Vital Signs: Vital Signs 02/13/18 11:23 02/13/18 12:00 02/13/18 14:00 Temperature 98.5 F Pulse Rate 97 H 101 H Respiratory Rate 26 H 27 H Blood Pressure 122/64 Pulse Oximetry 98 99 02/13/18 15:50 02/13/18 16:00 02/13/18 18:00 Temperature 99.1 F Pulse Rate 103 H 97 H Respiratory Rate 25 H 26 H Blood Pressure 123/69 Pulse Oximetry 97 99 02/13/18 20:00 02/13/18 20:20 02/13/18 22:00 Temperature 99.1 F Pulse Rate 98 H 98 H Respiratory Rate 25 H 23 Blood Pressure 116/72 Pulse Oximetry 99 98 02/13/18 23:37 02/14/18 00:00 02/14/18 02:00 Temperature 99.1 F Pulse Rate 95 H 95 H Respiratory Rate 25 H 24 Blood Pressure 110/67 Pulse Oximetry 99 99 02/14/18 03:41 02/14/18 04:00 02/14/18 06:00 Temperature 98.9 F Pulse Rate 100 H 101 H Respiratory Rate 25 H 26 H Blood Pressure 134/66 Pulse Oximetry 99 100 02/14/18 08:00 02/14/18 08:05 02/14/18 10:00 Temperature 100.6 F H Pulse Rate 101 H 108 H Respiratory Rate 29 H 25 H Blood Pressure 145/82 H Pulse Oximetry 99 99 Intake & Output 0802/14/18 02/14/18 18:59 06:59 18:59 Intake Total 2930 / 2930 2100 / 2100 200 / 200 Output Total 1300 / 1300 900 / 900 Balance 1630 / 1630 1200 / 1200 200 / 200 Weight 95.5 kg Intake: IV 2100 / 2100 1100 / 1100 200 / 200 1/2 Normal Saline Inj 1,000 ML 2000 / 2000 1000 / 1000 @ 150 mls/hr IV.CONT .Q6H40M EDE Rx#:[id number] Diflucan 400 mg Premix Bag 200 200 / 200 ML @ 100 mls/hr IV.SIG Q24H EDE Rx#:[id number] Merrem Inj 1,000 MG In NS Inj 100 / 100 100 / 100 100 ML @ 200 mls/hr IV.SIG Q12H EDE Rx#:[id number] Tube Feeding 830 / 830 800 / 800 Water Bolus Amount 200 / 200 Output: Stool 0 / 0 Urine Amount (Catheter) 1300 / 1300 900 / 900 Indwelling Urethral Catheter 1300 / 1300 900 / 900 Other: Date of Last Bowel Movement 02/11/18 02/11/18 02/11/18 Physical Exam: CONSTITUTIONAL/GENERAL: This is a frail elderly, ill -appearing gentleman; unresponsive. TUBES/LINES/DRAINS: peripheral IVs; SCDs, [place] catheter; tracheostomy, peg tube SKIN: Warm to touch. ENT: Unable to assess hearing. Nose without bleeding. Mucous membranes dry. Trach collar. CARDIOVASCULAR: Irregular rhythm. No audible murmur. Tachycardic. RESPIRATORY/CHEST: Symmetric, intermittently tachypneic, diminished to auscultation. Some coarse rhonchi and scattered rales are present GASTROINTESTINAL: Abdomen soft, round. Bowel sounds present. NEUROLOGICAL: With noxious stimulation, I am getting no response. PSYCHIATRIC: Unable to assess due to level of responsiveness. . Diagnostic Tests Laboratory: Laboratory Results - last 72 hr 02/11/18 02/11/18 02/12/18 11:30 18:35 00:16 WBC RBC Hgb Hct MCV MCH MCHC RDW Plt Count MPV Prelim Diff (Auto) Neut % (Auto) Lymph % (Auto) Winn % (Auto) Eos % (Auto) Baso % (Auto) Neut # (Auto) Lymph # (Auto) Winn # (Auto) Eos # (Auto) Baso # (Auto) WBC Differential Seg Neuts % (Manual) Band Neuts % (Manual) Lymphocytes % (Manual) Monocytes % (Manual) Eosinophils % (Manual) Abs Neuts (Manual) Differential Comment Platelet Estimate Platelet Morphology PT INR Sodium Potassium Chloride Carbon Dioxide Anion Gap BUN Creatinine Estimated GFR POC Glucose 174 H 248 H 247 H Random Glucose Calcium Prot Corrected Calcium Total Protein 02/12/18 02/12/18 02/12/18 04:05 04:05 04:05 WBC 7.1 RBC 2.55 L Hgb 7.1 L Hct 22.0 L MCV 86.3 MCH 27.8 MCHC 32.2 RDW 19.4 H Plt Count 172 MPV 8.7 Prelim Diff (Auto) Neut % (Auto) 65.9 Lymph % (Auto) 22.5 Winn % (Auto) 6.2 Eos % (Auto) 5.2 H Baso % (Auto) 0.2 Neut # (Auto) 4.7 Lymph # (Auto) 1.6 Winn # (Auto) 0.4 Eos # (Auto) 0.4 Baso # (Auto) 0.0 WBC Differential . Seg Neuts % (Manual) Band Neuts % (Manual) Lymphocytes % (Manual) Monocytes % (Manual) Eosinophils % (Manual) Abs Neuts (Manual) Differential Comment Auto diff final Platelet Estimate Platelet Morphology PT 29.4 H INR 2.9 Sodium 152 H Potassium 3.8 Chloride 119 H Carbon Dioxide 25.4 Anion Gap 8 BUN 77 H Creatinine 1.40 H Estimated GFR 49 L POC Glucose Random Glucose 225 H Calcium 7.4 L* Prot Corrected Calcium 8.1 L Total Protein 5.9 L 02/12/18 02/12/18 02/13/18 06:21 22:28 04:29 WBC RBC Hgb Hct MCV MCH MCHC RDW Plt Count MPV Prelim Diff (Auto) Neut % (Auto) Lymph % (Auto) Winn % (Auto) Eos % (Auto) Baso % (Auto) Neut # (Auto) Lymph # (Auto) Winn # (Auto) Eos # (Auto) Baso # (Auto) WBC Differential Seg Neuts % (Manual) Band Neuts % (Manual) Lymphocytes % (Manual) Monocytes % (Manual) Eosinophils % (Manual) Abs Neuts (Manual) Differential Comment Platelet Estimate Platelet Morphology PT 22.3 H INR 2.2 Sodium Potassium Chloride Carbon Dioxide Anion Gap BUN Creatinine Estimated GFR POC Glucose 265 H 314 H Random Glucose Calcium Prot Corrected Calcium Total Protein 02/13/18 02/13/18 02/13/18 04:29 04:56 06:35 WBC 6.1 RBC 2.71 L Hgb 7.2 L Hct 23.4 L MCV 86.5 MCH 26.7 L MCHC 30.9 L RDW 20.1 H Plt Count 182 MPV 9.3 Prelim Diff (Auto) Manual diff required Neut % (Auto) Lymph % (Auto) Winn % (Auto) Eos % (Auto) Baso % (Auto) Neut # (Auto) Lymph # (Auto) Winn # (Auto) Eos # (Auto) Baso # (Auto) WBC Differential Manual diff final Seg Neuts % (Manual) 73 H Band Neuts % (Manual) 2 Lymphocytes % (Manual) 11 Monocytes % (Manual) 10 H Eosinophils % (Manual) 4 Abs Neuts (Manual) 4.6 Differential Comment . Platelet Estimate Normal Platelet Morphology Normal PT INR Sodium 151 H Potassium 3.9 Chloride 119 H Carbon Dioxide 25.7 Anion Gap 6 BUN 64 H Creatinine 1.31 H Estimated GFR 53 L POC Glucose 260 H Random Glucose 243 H Calcium 7.6 L Prot Corrected Calcium Total Protein 02/13/18 02/13/18 02/13/18 11:37 18:16 22:49 WBC RBC Hgb Hct MCV MCH MCHC RDW Plt Count MPV Prelim Diff (Auto) Neut % (Auto) Lymph % (Auto) Winn % (Auto) Eos % (Auto) Baso % (Auto) Neut # (Auto) Lymph # (Auto) Winn # (Auto) Eos # (Auto) Baso # (Auto) WBC Differential Seg Neuts % (Manual) Band Neuts % (Manual) Lymphocytes % (Manual) Monocytes % (Manual) Eosinophils % (Manual) Abs Neuts (Manual) Differential Comment Platelet Estimate Platelet Morphology PT INR Sodium Potassium Chloride Carbon Dioxide Anion Gap BUN Creatinine Estimated GFR POC Glucose 285 H 287 H 229 H Random Glucose Calcium Prot Corrected Calcium Total Protein 02/14/18 02/14/18 02/14/18 03:40 03:40 03:40 WBC 6.5 RBC 2.75 L Hgb 7.4 L Hct 23.7 L MCV 86.1 MCH 27.0 MCHC 31.3 L RDW 20.0 H Plt Count 175 MPV 9.3 Prelim Diff (Auto) Manual diff required Neut % (Auto) Lymph % (Auto) Winn % (Auto) Eos % (Auto) Baso % (Auto) Neut # (Auto) Lymph # (Auto) Winn # (Auto) Eos # (Auto) Baso # (Auto) WBC Differential Manual diff final Seg Neuts % (Manual) 60 Band Neuts % (Manual) Lymphocytes % (Manual) 27 Monocytes % (Manual) 7 Eosinophils % (Manual) 6 H Abs Neuts (Manual) 3.9 Differential Comment . Platelet Estimate Normal Platelet Morphology Normal PT 21.3 H INR 2.1 Sodium 149 H Potassium 4.0 Chloride 117 H Carbon Dioxide 24.9 Anion Gap 7 BUN 66 H Creatinine 1.20 Estimated GFR 59 L POC Glucose Random Glucose 223 H Calcium 7.3 L* Prot Corrected Calcium 7.9 L Total Protein 6.0 L 02/14/18 05:38 WBC RBC Hgb Hct MCV MCH MCHC RDW Plt Count MPV Prelim Diff (Auto) Neut % (Auto) Lymph % (Auto) Winn % (Auto) Eos % (Auto) Baso % (Auto) Neut # (Auto) Lymph # (Auto) Winn # (Auto) Eos # (Auto) Baso # (Auto) WBC Differential Seg Neuts % (Manual) Band Neuts % (Manual) Lymphocytes % (Manual) Monocytes % (Manual) Eosinophils % (Manual) Abs Neuts (Manual) Differential Comment Platelet Estimate Platelet Morphology PT INR Sodium Potassium Chloride Carbon Dioxide Anion Gap BUN Creatinine Estimated GFR POC Glucose 233 H Random Glucose Calcium Prot Corrected Calcium Total Protein Result Diagrams: 02/15/18 04:40 02/15/18 04:40 Microbiology: Microbiology 02/11/18 13:40 Aerobic Blood Culture - Preliminary Blood - Peripheral No growth in 3 days Anaerobic Blood Culture - Preliminary No growth in 3 days 02/11/18 13:46 Aerobic Blood Culture - Preliminary Blood - Peripheral No growth in 3 days Anaerobic Blood Culture - Preliminary No growth in 3 days 02/08/18 10:24 Aerobic Blood Culture - Final Blood - Peripheral No growth in 5 days Anaerobic Blood Culture - Final No growth in 5 days 02/08/18 13:10 Aerobic Blood Culture - Final Blood - Peripheral No growth in 5 days Anaerobic Blood Culture - Final QNS - See aerobic report. Procedures: * 11/09/17 - Intubation * 11/11/17 - Extubated * 11/18/17 - Re-intubated * Tracheostomy * PEG tube * Bilateral chest tubes for pleural effusions 01/14/18 Assessment and Plan - Disease Oriented Problem List (1) Aspiration pneumonia Comment: Recurrent 02/08/18, with cardiac arrest (2) Cardiac arrest Comment: 02/08/18, with apparent hypoxic brain injury (3) CVA (cerebral vascular accident) (4) Diabetes (5) Anemia (6) Hypoalbuminemia (7) Wound of sacral region (8) Fungemia (9) Carotid stenosis (10) Debility - Symptom Scale (1) Pain 0-10 Scale: Unable to quantify (2) Encephalopathy 0-10 Scale: Unable to quantify (3) Dyspnea 0-10 Scale: Unable to quantify Pertinent Non-Medical Issues: Psychosocial: Patient was born and raised in [place], [place] lives in [place]. Primary language is Sami. Patient is , retired, has 2 daughters. Highest level of education is high school. Spiritual: [employer]. Spirituality and prayer have been very important for the patient's family. Legal: No known advanced directives have been completed. Ethical issues impacting care: Patient incapacitated for medical decision- making. Important Contacts: Family providing son-in-law's contact information: Avtar Ashraf . -pending information Daughter Alexandra -pending contact information Daughter Lanette -not very forthcoming with contact info. State "I am always here." Prognosis: Patient with a complicated prolonged hospitalization with multiple complications including recent cardiac arrest and apparent anoxic brain injury. He will in the hospital. Patient is certainly eligible for hospice services at such time that the medical decision makers are ready to opt for comfort oriented care. . Code Status: Full Code Plan: ==CODE STATUS: FULL CODE ==HEALTHCARE DECISION-MAKING: . Patient incapacitated for medical decision- making secondary to clinical condition. He will not recover that capacity. has indicated she wants her daughters to manage medical decisions especially Lanette. does not want to participate in medical decision making. ==GOALS OF CARE: 02/10/18: Discussed with daughter at bedside; I requested that she inform the patient's that I feel the patient is dying. I also told her again that we would be able to keep him comfortable, withdraw all the machinery, and allow him to peacefully when the family feels that comfort measures are most important. Family step out will return. ==SYMPTOMS: = * Debility: Multifactorial secondary to multiple acute on chronic illnesses and prolonged hospitalization, severe hypoalbuminemia. Remains critically ill. * Encephalopathy probably multi-factorial -- stroke, cardiac arrest with CPR, infection, anoxic brain injury, prolonged hospitalization, etc. * Pain: Secondary to lines, prolonged bedbound status, wounds, catheter, vascular access lines, etc. No further recommendations at this time. * Dyspnea: Managed with mechanical ventilation. Recurrent aspiration 02/08/18 == Disposition --it is apparent that the patient will not survive this hospitalization. ==Palliative care will continue to follow to assist with symptom management and to further clarify goals of medical treatment as the clinical course evolves. . . Attestation Attestation: To help prompt me to consider important information that might be impacting today's encounter and assessment, information from prior notes written by myself or my colleagues may have been "brought forward" into today's note. My signature on this note, however, is an attestation that I personally performed the exam, history, and/or decision-making noted today, and, unless otherwise indicated, the interactions with patient, family, and staff as well as the review of records all occurred today. I also attest that the listed assessment and stated plan reflect my best clinical judgment today based on the combination of historical information, prior notes, and today's exam/ interactions. When time spent is documented, it refers only to time spent today by the signer, or if indicated, combined time spent today by collaborating physician/nurse practitioner.
[2018-02-14] MEDS: Acetaminophen 325 MG Tablet PO PRN (11:27)
[2018-02-14] MEDS: levoFLOXacin 750 MG Tablet PO SCH (12:20)
[2018-02-15] MEDS: Insulin NovoLIN Regular Correctional Sugar Inj SQ SCH ×4 (01:24→18:26)
[2018-02-15] MEDS: Sodium Chloride 0.45 % Inj 1,000 ML IV.CONT SCH (04:41)
[2018-02-15 04:57] LABS: Baso % (Auto) 0.1 % (0.0-2.0); Eos # (Auto) 0.3 th/mm3 (0.0-0.4); Eos % (Auto) 3.3 % (0.0-4.0); Hematocrit 24.3 % (39.0-51.0); Hemoglobin 7.8 gm/dL (13.0-17.0); Lymph # (Auto) 2.8 th/mm3 (1.0-4.8); Lymph % (Auto) 30.2 % (9.0-44.0); Mean Corpuscular HGB Conc 32.2 % (32.0-36.0); Mean Corpuscular Hemoglobin 27.2 pg (27.0-34.0); Mean Corpuscular Volume 84.5 fL (80.0-100.0); Mean Platelet Volume 8.9 fL (7.0-11.0); Mono % (Auto) 10.3 % (0.0-8.0); Neut # (Auto) 5.2 th/mm3 (1.8-7.7); Neut % (Auto) 56.1 % (16.0-70.0); Platelet Count 175 th/mm3 (150-450); Red Blood Count 2.87 mil/mm3 (4.50-5.90); Red Cell Distribution Width 19.8 % (11.6-17.2); White Blood Count 9.3 th/mm3 (4.0-11.0)
[2018-02-15 05:05] LABS: INR 1.9 Ratio; Prothrombin Time 18.8 sec (9.8-11.6)
[2018-02-15 05:24] LABS: Calcium 7.6 mg/dL (8.5-10.1); Carbon Dioxide 25.4 meq/L (21.0-32.0); Potassium 4.6 meq/L (3.5-5.1)
[2018-02-15] MEDS: Insulin Detemir Inj 1,000 UNIT/10 ML Vial SQ SCH ×2 (08:10→21:00)
[2018-02-15] MEDS: Famotidine 20 MG Tablet PO SCH ×2 (08:10→21:00)
[2018-02-15] MEDS: Polyethylene Glycol 3350 17 GM Packet PO SCH (08:10)
[2018-02-15] MEDS: Hydrocortisone Acetate 25 MG Supp RECTAL SCH (08:10)
[2018-02-15] MEDS: Collagenase Oint 30 GM Tube TOPICAL SCH (08:11)
--- NOTE | 2018-02-15 10:27 | P.PNCC ---
Subjective Subjective Remarks/Hospital Course: This is a 77-year-old male who initially presented with vision changes and concern for optic neuritis versus temporal arteritis. His initial presentation was on 10/14. His hospital course has been complicated by an NSTEMI with troponins which peaked at 10, ESBL E. coli urinary tract infection, rectal bleeding suspected from bleeding hemorrhoids, acute anemia secondary to blood loss with hemoglobin started around 14 and is trended down to 9.7 this morning. On his initial MRA he was found to have significant atherosclerotic cerebrovascular disease in all vascular territories. Today, he had an acute mental status change and was obtunded. Rapid response and stroke alert was called. His initial NIH stroke scale was 22. Dr. goldstein had conversations with Dr. Ulloa and neurology as well as Dr. sierra with gastroenterology. GI feels comfortable with giving thrombolytics and neurology feels strongly that this patient would benefit from systemic IV TPA therapy. I evaluated the patient on arrival to the intensive care unit. The patient is arousable, but very somnolent. He is Mongolian speaking, and it is very difficult to ascertain whether or not he can follow commands. He does move all extremities spontaneously, although it appears that his left side is weaker than his right. He has noted facial droop. CT head is negative for acute hemorrhage. CTA head neck is significant for the same multivessel cerebrovascular disease that was present on admission. Given the high-risk nature of the stroke as well as his acute anemia this hospitalization, in preparation for giving emergent IV systemic TPA, I placed an arterial line as well as a large-bore peripheral IV so that we could draw serial labs, monitor his hemoglobin, and give blood products if necessary. I also had an additional discussion with the family where I reconfirmed that their goals were aggressive and they fully understood the significant risk of life-threatening hemorrhage associated with systemic TPA in a patient with new anemia and suspected GI bleeding. The family expressed understanding of his condition and understanding of the heightened risk of life-threatening bleeding, but still urged that we needed to get TPA. Immediately after giving IV TPA, patient had a tonic clonic seizure (witnessed on EEG) and became obtunded with acute hypoxic and hypercarbic respiratory failure and was emergently intubated (see separate procedure note for details). 11/10: remains intubated. encephalopathy persists. hgb stable s/p TPA. ~350cc bloody OG tube output, but this is slowing down. 11/11: more awake. on SBT. follows commands. 11/12: remains extubated. off vasopressors. no changes in mental status. 11/18/17 CCM Reconsult Note Patient was transferred to ICU today after a Halicat was called for AMS, hypoxia , high fever. Apparently patient was lethargic since a.m. in the last hour had been unresponsive and hence Halicat was called. Patient had a fever of 101.4 in a.m., T-max is 101.6. I immediately evaluated the patient in the ICU. Patient is completely unresponsive, oxygen saturation 87% on 4 L nasal cannula. Hypopneic. No response to deep pain. Patient was confirmed to be a full code and I proceeded with endotracheal intubation place him on mechanical ventilation as patient was not protecting airway. More history was obtained from discussion with ID Dr. Jalloh. She indicated patient had been increasingly lethargic with fever and also had urinary retention.She has discontinued Ertapenem, and started on meropenem, vancomycin and micafungin. Cultures have been sent and are pending now. Source of sepsis appears to be aspiration pneumonia versus UTI. Repeat UA and panculture pending at this time. Patient was borderline hypotensive prior to intubation and I have started on Levophed to avoid hypotension post intubation. Receiving 1 L normal saline bolus now, give additional fluid bolus if patient requires continued Levophed will place central line 11/19: remains intubated. holding aggrenox for possible thoracentesis today, but family hesitant to consent with concerns over bleeding risk. Cr remains elevated. discussion with Dr. Bernal, unlikely to benefit currently from draining effusion, so at his recommendation, will proceed with attempted weaning from mechanical ventilation and treat effusion conservatively. 11/20: Overnight /early this a.m. ,the patient was noted to have large amount of rectal bleeding. Aggrenox held since 11/18, 2/2 reintubation. Type and screen ordered. Serial H&H currently be performed. Hemodynamically stable. GI has been reconsulted. Protonix previously given PRN, will schedule BID. Patient was reintubated emergently 11/18, plan for continue CPAP trials. Tube feedings until evaluation by GI. ASA placed on hold , in the setting of GI bleeding. 11/21: EGD and colonoscopy performed yesterday. Patient was noted to be constipated ,disimpacted per GI. Patient noted to have hemorrhoids which was clipped. No further bleeding throughout the night. Chest x-ray showed improvement. CPAP trials initiated this a.m.. ASA 81 mg resumed. 11/22: Patient tolerated CPAP trials approximately 13 hours yesterday. Initiation of tube feeds per GI yesterday, no residuals. This am , family concerned patient not responsive. CT brain , ammonia level and EEG pending. Neurology has been reconsulted. Upon my entering the room, this afternoon, the patient was awake, tracking and squeezing my hand upon commands, with right hand. The patient received 1 u PRBC for Hgb 7.2. Post transfusion CBC pending. Plan for quantification of pleural fluid for possible thoracentesis in a.m.. 11/23: No acute events overnight. Patient remains off all sedation. Noted spontaneous eye opening, tracking following commands squeezing hands right greater than left. Neurology following plan for MRI this a.m., repeat EEG pending. Hemoglobin stable this a.m.. Chest x-ray slight improvement, plan for quantification via ultrasound of pleural effusions for possible thoracentesis today. 3 failed attempts at CPAP trials yesterday. 1548-MRI resulted findings consistent of small areas of acute cortical infarct, new since 11/09/2017. I contacted neurology, Dr. Geronimo informed of results. After Dr. Palma's review of imaging and records, it was determined most likely cardioembolic since is affecting both sides and failure with aspirin and Persantine. Ischemic stroke heparin protocol initiated. Careful review secondary to patient history of GI bleed 11/20, thought to be emanating from hemorrhoid ,however due to poor suboptimal prep, they unable to have optimal visualization per Dr. Jones. 11/24: Late entry note. Patient seen and evaluated 614. No acute events overnight. Patient continues on heparin infusion no active signs of bleeding. PTT within therapeutic range. The patient is less responsive this a.m., spontaneous eye opening, not following my commands. Not moving his extremities spontaneously for me as previously performed yesterday. tube feeds reinitiated. Chest x-ray showed further improvement in aeration of lungs the patient continues on FiO2 of 0.35. Plan for CPAP trials today. 11/25: No acute events overnight. Neurological status unchanged. Spontaneous eye opening patient continues not following any commands. Dr. Geronimo at bedside evaluating patient, no change. Patient tolerated CPAP trials approximately 12 hours yesterday. Tolerating tube feeds. Chest x-ray remains unchanged from yesterday. Hemoccult stool negative. Heparin infusion continued. family at bedside. 11/26: Late entry note. Patient seen at 1240pm. Last night the patient was noted to be continuously hyperglycemic. Levemir added to medication regimen 10 mg/day hemoglobin dropped 2 g/dL in 2 days hemoglobin now 7.7, patient to be transfused 1 unit packed red blood. No obvious signs of bleeding Hemoccult was negative. Patient continues on heparin infusion, patient may require tracheostomy and PEG in the near future . Plan to transition to p.o. anticoagulation post procedures. Neurologically the status is unchanged the patient is opens eyes spontaneously no movement of extremities upon my evaluation. Continued CPAP trials currently greater than 6 hours. 11/27: At 1000am, the patient was noted to have melena, approximated at 150 cc per RN evaluation. Heparin infusion discontinued/placed on hold at 10 AM. Stool for Hemoccult blood sent, GI was contacted and informed of the above events. Stat CT of the abdomen and pelvis with p.o. contrast ordered, results pending. Patient previously had been tolerating trickle feeds at 10 cc an hour with no residuals, after initiation of Reglan 5 mg every 8 hours yesterday. Neurologically the patient status is unchanged. Patient does have spontaneous eye opening but does not follow my commands and does not move extremities. Patient's daughter is at bedside, discussed the above events at which she was present for, she is requesting a repeat colonoscopy. I informed her that a CT of the abdomen and pelvis will be obtained, serial hemoglobin will be evaluated and if needed transfusion will be provided and gastroenterology has been contacted and will determine further management if an invasive procedure is required. Hemoglobin continues to be monitored serially, results pending for 10 AM. The patient received 1 unit packed red blood cells, and current hemoglobin trended overnight 8.9 to 8.2 this a.m., posttransfusion. 11/28: hgb continues to decline despite being off heparin. no additional GI interventions are available at this time. clearly the patient has failed anticoagulation with 2 life-threatening bleeding episodes. Although it is clear he may have additional strokes off anticoagulation, we have clear evidence that we are hurting his overall clinical care with his anticoagulation. I explained this at length to the daughter and medical decision maker. however, she insists that she would rather see him of bleeding rather than have any more strokes , and insists that "we can always keep giving him blood". I explained that blood is not without risk, and there is significant risk to anticoagulation, but she is insistent that he be given anticoagulation to prevent further strokes and she has weighed the risks and benefits after having full informed consent, insists upon us restarting the heparin drip. At her insistence, I have restarted it. In addition, I have counseled her that I do not think he will survive this hospitalization, and he will require tracheostomy for further aggressive care. She states that we are not at "day 14" on the vent, and it is not time for a tracheostomy yet. This is a second intubation and we are certainly at risk for complications from endotracheal intubation, and tracheostomy would be the most appropriate next step for this patient, but the family is refusing until WednesdayDecember 01. 11/29 Patient remains intubated, on no sedation. Afebrile. 11/30 No events overnight. Patient tolerated CPAP for most of day yesterday. Remains on Heparin drip. 12/01 Patient remains intubated tolerated CPAP for several hrs yesterday. s/p CT guided right thoracentesis with removal 500ml pleural fluid. On Heparin drip 12/02 No events overnight. Heparin drip stopped this morning for trach and PEG placement today. Afebrile. 12/03 Patient s/p trach and PEG tube placement yesterday. Had bleeding from around trach and PEG tube insertion sites Heparin drip held last night. s/p transfusion 1u PRBC yesterday Hgb 8.0 this morning. Afebrile. On no sedation. 12/04: Continues to have bruising from PEG tube insertion site. Trach site appears to have stopped. Hemoglobin 7 the same receiving 1 unit FFP and 1 PRBCs. Tube feeds of been resumed. On no sedation. 12/05: Afebrile. No further bleeding noted from the tracheostomy site. Overnight reported by the RN that the PEG tube site continues to bleed Surgicel was placed around the opening, small amount of bleeding still noted. Patient hemoglobin remained 7 patient to be transfused 1 unit PRBC's fibrinogen level pending INR within normal limits. 12/06 Patient s/p transfusion 2u PRBC yesterday Hgb 9.5 this morning from 7.2 last night. No bleeding from trach site however patient still having rectal bleeding. 12/07 No events overnight. On ventilator via trach Hgb 9.8 this morning for colonoscopy today. 12/08: seen and examined around 06:30am. no significant change in mental status. hgb 8.9 this AM. remains on heparin drip at [facility]. 12/09: no improvements or changes. very deconditioned. garcia has remained in without clear indication. had 1 episode of urinary retention, but this is a clear source of infection and an additional serious infection would certainly be life-threatening. 12/10 Patient is now on TP's with 28% FIO2, Afebrile. On Heparin drip. 12/11: remains on t-piece x > 48h. no change in neuro exam. remains on heparin drip with stable hgb 7.8. Subjective: 12/12: asked to see patient again today by the hospitalist service for change in condition. I have evaluated the patient and he does not clinically appear any different than yesterday. HR actually lower than yesterday. bladder scan suggestive of 600cc retention. patient has had urinary retention before, although has also had multiple hospital acquired urinary tract infections. risk/ benefit at this time would be in favor of serial q6h straight catheterizations. remains hemodynamically stable. some emesis today and evidence of ileus. 12/31 Reconsult for resp distress Patient is 77 yo with chronic resp failure, trach/PEG tube placement, CVA transferred to [facility] for resp distress trach changes to #6 and patient was placed on mechanical ventilation. CXR showed increasing consolidation patient was given Lasix prior to arrival to [facility] [facility]. 01/01 Patient is on ventilator via trach. Afebrile. 01/02 No events overnight. On no drips, Afebrile, CPAP 15/5 with 35% FIO2 overnight. 01/03 Remained on TP breathing comfortably. CXR shows bilateral effusions. Will get CT chest. Give single dose of lasix. ID consulted and following, no fever in 24 hours 01/04: Remains unresponsive, fever trending down. Sputum culture now growing Klebsiella and ESBL E. coli. Urine culture and wound culture also growing ESBL E. coli. Chest tube placed on the right side yesterday with 1.35 L output since placement. Urine output excellent with single dose of Lasix 2.5 L in 24 hours. No fever in 24 hours. Repeat 40 mg IV Lasix 1 [facility] RECONSULT NOTE 02/08/18: Mr. Glynn is a 77-year-old man who is known to our service. In short, he was initially admitted with possible optic neuritis versus temporal arteritis in September. Care complicated by an STEMI, multiple infections with healthcare associated pneumonia UTIs. During hospitalization he also received TPA for Stroke, MRI of the brain performed on 12/24/2017, showed infarction involving the left corpus callosum and splenium of the corpus callosum. The patient had undergone tracheostomy placement. And since last month had been on hospitalist service and off ventilator. He is currently receiving Levaquin for stenotrophomonas infection, Diflucan for candidemia. Apparently patient was noted to aspirate earlier this a.m. At 7250 AM patient was found unresponsive pulseless rhythm asystole and CPR was started. Total 3 amp of epinephrine given. Patient had a cuff less trach with evidence of aspiration, large amount of tube feeds aspirated from tracheostomy tube. This was exchanged for a 8.0 Shiley tracheostomy cuffed. With improved bag and mask ventilation and after 3 epinephrine, 1 amp of calcium, 1 amp of bicarb, patient regained ROSC SUBJ 02/09/18: Remains very critical not on any sedation he is unresponsive eyes are spontaneously open but no tracking. Very slight withdrawal to pain on the upper extremities. CT of the head unremarkable. Currently borderline hypotensive off pressors. Received 2 units of PRBC for hemoglobin 6.6 yesterday. Prognosis remained poor. Neurology consulted per family request 02/10/18: Remains critical with no improvement in neuro status or clinical status. Eyes are spontaneously open but no response to threat no tracking. Neurology consulted MRI and EEG pending at this time. Currently remains on Levophed at 1 mcg/min. Chest x-ray with bilateral infiltrates sputum culture growing GNR. Na 155. Free water flushes and half-normal saline rate increased. 02/11: Remains unresponsive off all sedation. Osmolality slowly returning to baseline. Antibiotics appropriate for organism. Tube feeds tolerated at 50 mL' s per hour. Unable to wean from mechanical ventilation. 02/12: Osmolality slowly returning to baseline. Tube feeds now tolerated at 60 mL's per hour. Unable to wean from mechanical ventilation due to fatigue. 02/13: Placed on spontaneous breathing trial this morning but required 18 of pressure support to maintain an adequate minute volume. Will work from this point and attempt to wean pressure support over the next many days. Will place back on mechanical rate nightly. Anticoagulation is been particularly cumbersome and made more difficult by Diflucan. Will restart Coumadin again this morning as INR is declined to 2.2 02/14: Remains very weak. Essentially unresponsive. Tolerates brief periods of spontaneous breathing trial blood pressure support must be markedly elevated to the 1820 range. State of hydration gradually improving as osmolality declines and serum creatinine improves. Will continue hypotonic solutions IV. 02/15: Remains unresponsive. Continues to fail spontaneous breathing trials due to lack of respiratory effort. Suffers from tachycardia with an efficient small tidal volumes regardless of the amount of pressure support. Objective Vital Signs / I&O: Vital Signs 02/14/18 11:47 02/14/18 12:00 02/14/18 14:00 Temperature 101.0 F H Pulse Rate 107 H 97 H Respiratory Rate 26 H 28 H Blood Pressure 115/64 Pulse Oximetry 100 98 02/14/18 15:35 02/14/18 16:00 02/14/18 18:00 Temperature 100.8 F H Pulse Rate 103 H 99 H Respiratory Rate 27 H 27 H Blood Pressure 113/63 Pulse Oximetry 100 100 02/14/18 20:00 02/14/18 20:43 02/14/18 22:00 Temperature 100.9 F H Pulse Rate 101 H 101 H Respiratory Rate 24 22 Blood Pressure 111/65 Pulse Oximetry 100 100 02/14/18 23:49 02/15/18 00:00 02/15/18 02:00 Temperature 100.6 F H Pulse Rate 102 H 96 H Respiratory Rate 21 20 Blood Pressure 123/72 Pulse Oximetry 99 99 02/15/18 03:10 02/15/18 04:00 02/15/18 06:00 Temperature 99.1 F Pulse Rate 91 H 92 H Respiratory Rate 23 19 Blood Pressure 115/68 Pulse Oximetry 100 99 02/15/18 07:36 02/15/18 08:00 02/15/18 10:00 Temperature 98.4 F Pulse Rate 86 91 H Respiratory Rate 21 27 H Blood Pressure 115/63 Pulse Oximetry 100 97 Intake & Output 02/14/18 02/15/18 02/15/18 18:59 06:59 18:59 Intake Total 2200 / 2200 1570 / 1570 Output Total 1050 / 1050 900 / 900 Balance 1150 / 1150 670 / 670 Weight 94.7 kg Intake: IV 2200 / 2200 1200 / 1200 1/2 Normal Saline Inj 1,000 ML 2000 / 2000 800 / 800 @ 20 mls/hr IV.CONT .Q24H EDE Rx#:[id number] Diflucan 400 mg Premix Bag 200 200 / 200 200 / 200 ML @ 100 mls/hr IV.SIG Q24H EDE Rx#:[id number] Merrem Inj 1,000 MG In NS Inj 200 / 200 100 ML @ 200 mls/hr IV.SIG Q12H EDE Rx#:[id number] Tube Feeding 220 / 220 Tube Irrigant 150 / 150 Output: Urine Amount (Catheter) 1050 / 1050 900 / 900 Indwelling Urethral Catheter 1050 / 1050 900 / 900 Other: Date of Last Bowel Movement 02/11/18 02/14/18 02/11/18 Result Diagrams: 02/15/18 04:40 02/15/18 04:40 Objective Remarks: GENERAL: Patient is 77 yo encephalopathic, unresponsive on the vent. Eyes are closed. SKIN: Warm and dry. Stage IV sacral decubitus. HEAD: Normocephalic. Tongue dry. EYES: No scleral icterus. No injection. Pupils equal sluggish reaction to light. NECK: Cuffed tracheostomy tube in place. Moderate secretions persist. CARDIOVASCULAR: S1-S2 normal no murmurs. No JVD. RESPIRATORY: Breath sounds equal bilaterally. Moderate wheezes and scattered rhonchi GASTROINTESTINAL: Abdomen soft. +PEG tube. tube feeds at 60 ml per hour MUSCULOSKELETAL: No cyanosis, or edema. NEURO: Eyes are closed. No tracking no response to voice or visual threat. Slight withdrawal to the upper extremity, lower extremities remain flaccid. Assessment and Plan - Assessment and Plan Plan: Assessment: Asystole/Cardiac arrest Worsening encephalopathy most likely anoxia contributing Aspiration pneumonia Acute on chronic hypoxemic and hypercapnic resp failure Combined shock, septic and cardiogenic Healthcare associated pneumonia, stenotrophomonas Candidemia UTI with ESBL E. coli Hyponatremia CVA Anemia requiring transfusion Sacral decubitus ulcer s/p NSTEMI Optic neuritis Status post tracheostomy and PEG tube placement Plan: Impression: Neuro -Acute worsening of encephalopathy secondary to systolic cardiac arrest, anoxia -CT head 02/08/[address] Pereira reconsulted per family request -MRI EEG today, pending -History of L ENID infarct. Status post systemic TPA on November 09 -On warfarin INR 3.9, put on hold, pharmacy dosing -Neuropsychology has followed. Continue Ritalin -Optic neuritis. Status post treatment with IV hydrocortisone -Remains unresponsive. CV: -Asystole/cardiac arrest seems secondary to hypoxia and hypercapnia from severe aspiration -Levophed to keep map above 65 -s/p IV fluid normal saline 2 L bolus, 2U PRBC -Increase half-normal saline to 150 ml per hour due to hypernatremia, increase free water flushes to 300 mL every 6 -Continue Coumadin, on hold now due to the INR 3.9 -Echo 10/19: LV systolic function is moderately reduced, EF 40-45%. Cardiology has followed Dr. Betty Hammond 2mg daily and Coreg 3.125mg BID on hold due to hypotension. On Lipitor 80mg qhs Pulm: -Cardiac arrest seems to be secondary to respiratory arrest. Evidence of aspiration at the time of arrest -Cuff less tracheostomy tube removed and new Shiley 8 cuffed tracheostomy placed 02/08/18 -PRVC/AC ventilation. DuoNeb every 6 hours scheduled and as needed -Failed CPAP due to apnea -ICU vent bundle. Pulm toilet, trach care. -GNR in sputum culture, On Levaquin for stenotrophomonas, Diflucan for candidemia, meropenem for previous ESBL E Coli HCAP -Antibiotic and antifungal coverage remains appropriate. GI -Currently tube feeds at 10 mL/h, advance as tolerated -On Pepcid 10mg BID -Free water flushes 300 mils every 6 hours -Having BMs -Tube feeds at 60 mL's per hour 02/12. : -Monitor renal function, electrolytes replacement per protocol -Increase half-normal saline to 150 ml per hour due to hypernatremia, increase free water flushes to 300 mL every 6 ID -Patient was receiving Levaquin for stenotrophomonas, Diflucan for candidemia -Added meropenem 02/08/18 for previous ESBL E. coli HCAP -Previous UTI with ESBL E. coli, Previous healthcare associated pneumonia with Klebsiella and ESBL E. coli -F/U blood and sputum culture and urine culture. GNR in sputum 02/08 -ID Dr. Jalloh following Skin -Sacral wound-Seen by Plastic surgery; debridement declined per patient's family -Wound care is following- apply dressings per wound management recommendations Heme: -Monitor hemoglobin closely. Status post 2 units PRBC on 02/08/2018 -Previous GI bleed; Status post EGD colonoscopy. GI has signed off, patient with healed rectal ulcers and hemorrhoids. -INR therapeutic -If recurrent anemia will reconsult GI Endo -On SSI. Levemir for glycemic control, increasing dosage. GI prophylaxis- on Pepcid DVT prophylaxis- On Coumadin hold due to INR 3.9 Overall impression: Patient remains critically ill after aspiration with hypoxemic and hypercarbic respiratory failure leading to asystolic cardiac arrest. Ten minutes of CPR with return of spontaneous circulation after aggressive resuscitation following CPR, patient remains hypoxemic and encephalopathy. Remains unresponsive, weak respiratory effort is ineffective, unable to begin weaning from ventilator. Prognosis poor.
--- NOTE | 2018-02-15 15:50 | P.DIET ---
Nutritional Evaluation Type of nutrition evaluation: follow-up Nutrition consult regarding: Tube Feeding Nutrition screening: Pressure Injury, MDC (01/26 reevaluate tube feedings as patient is vomiting) Screening comments: Transferred to [facility] s/p cardiac arrest and aspiration on 02/08 Objective - Diagnosis Optic Neuritis - Objective % IBW: 114 (NXS=627#) Body Weight Used for Calculations: Actual (79.6kg) Energy Needs - Lower Range (kCal/kg): 30 Energy Needs - Upper Range (kCal/kg): 35 Lower Limit kCal/kg (kCals): 2,388 Upper Limit kCal/kg (kCals): 2,786 Lower Limit Protein Factor (Grams per Kg): 1.3 Upper Limit Protein Factor (Grams per Kg): 1.6 Lower Protein Needs (Protein): 103 Upper Protein Needs (Protein): 127 Fluid Factor (ml/kg): 30 Estimated Fluid Needs (ml): 2,388 Dietitian Reviewed in Medical Record: Curent medications, Intake & Output, Labs , Tube feeding, Wound/DTI Diet Order: TF Only Wound Care Note: WOCN dated 01/27: sacrum pressure injury-unstageable Feeding - Current Tube Feeding Tube Feeding Product: Vital 1.5 Tube Feeding Method: Pump Tube Feeding Rate: 20 Tube Feeding Route: gastrostomy Assessment Assessment: Transferred to [facility] (02/08) d/t cardiac arrest and aspiration and has been unresponsive since. Recommend Vital 1.5 @ 65 mls/hr to provide 2340 kcals, 105 gms protein and 1192 mls of free water. Labs, wts and clinical course reviewed. Wt changes noted. Recommendations: Vital 1.5 @ 65mls/hr when able Please update TF order Dietitian to Monitor: Lab values, Glucose level, Intake & Output, Tube feeding tolerance, Weight change, Wound/skin status, Medical course
--- NOTE | 2018-02-15 16:55 | P.PNID ---
Subjective Remarks: remains on vent W/d with BUE ti stimulation, non other response no fever sputu with Kleb pneumo, On high vent settings not much sputum + diarrhea very edematous Antibiotics: diflucan meropenem levaquine Lines: Lines ok Past Medical History: reviewed Allergies/Adverse Reactions: Allergies Glucerna 1.5 Adverse Reaction (Uncoded 02/09/18 12:04) Vomiting Objective Vital Signs 02/14/18 18:00 02/14/18 20:00 02/14/18 20:43 Temperature 100.9 F H Pulse Rate 99 H 101 H Respiratory Rate 24 22 Blood Pressure 111/65 Pulse Oximetry 100 100 02/14/18 22:00 02/14/18 23:49 02/15/18 00:00 Temperature 100.6 F H Pulse Rate 101 H 102 H Respiratory Rate 21 20 Blood Pressure 123/72 Pulse Oximetry 99 99 02/15/18 02:00 02/15/18 03:10 02/15/18 04:00 Temperature 99.1 F Pulse Rate 96 H 91 H Respiratory Rate 23 19 Blood Pressure 115/68 Pulse Oximetry 100 99 02/15/18 06:00 02/15/18 07:36 02/15/18 08:00 Temperature 98.4 F Pulse Rate 92 H 86 Respiratory Rate 21 27 H Blood Pressure 115/63 Pulse Oximetry 100 97 02/15/18 10:00 02/15/18 11:24 02/15/18 12:00 Temperature 97.6 F Pulse Rate 91 H 85 Respiratory Rate 24 26 H Blood Pressure 116/65 Pulse Oximetry 99 99 02/15/18 14:00 02/15/18 15:15 02/15/18 16:00 Temperature 97.7 F Pulse Rate 88 82 Respiratory Rate 24 26 H Blood Pressure 117/64 Pulse Oximetry 98 99 Intake & Output 02/14/18 02/15/18 02/15/18 18:59 06:59 18:59 Intake Total 2200 / 2200 1570 / 1570 Output Total 1050 / 1050 900 / 900 Balance 1150 / 1150 670 / 670 Weight 94.7 kg Intake: IV 2200 / 2200 1200 / 1200 1/2 Normal Saline Inj 1,000 ML 2000 / 2000 800 / 800 @ 20 mls/hr IV.CONT .Q24H COUNT INCLUDES THE [facility] Rx#:[id number] Diflucan 400 mg Premix Bag 200 200 / 200 200 / 200 ML @ 100 mls/hr IV.SIG Q24H COUNT INCLUDES THE [facility] Rx#:[id number] Merrem Inj 1,000 MG In NS Inj 200 / 200 100 ML @ 200 mls/hr IV.SIG Q12H COUNT INCLUDES THE [facility] Rx#:[id number] Tube Feeding 220 / 220 Tube Irrigant 150 / 150 Output: Urine Amount (Catheter) 1050 / 1050 900 / 900 Indwelling Urethral Catheter 1050 / 1050 900 / 900 Other: Date of Last Bowel Movement 02/11/18 02/14/18 02/11/18 02/08/18 13:15 Blood - Peripheral Blood Fungal Culture - Preliminary No growth in 1 week 02/08/18 13:15 Blood - Peripheral Blood Fungal Culture - Final 01/04/18 12:45 Fluid - Pleural fluid Acid Fast Bacilli Smear - Final No acid fast bacilli seen 01/04/18 12:45 Fluid - Pleural fluid Mycobacterial Culture - Final No growth in 6 weeks 02/11/18 13:40 Blood - Peripheral Aerobic Blood Culture - Preliminary No growth in 4 days 02/11/18 13:40 Blood - Peripheral Anaerobic Blood Culture - Preliminary No growth in 4 days 02/11/18 13:46 Blood - Peripheral Aerobic Blood Culture - Preliminary No growth in 4 days 02/11/18 13:46 Blood - Peripheral Anaerobic Blood Culture - Preliminary No growth in 4 days 01/03/18 17:00 Fluid - Pleural fluid Acid Fast Bacilli Smear - Final No acid fast bacilli seen 01/03/18 17:00 Fluid - Pleural fluid Mycobacterial Culture - Final No growth in 6 weeks 02/08/18 10:24 Blood - Peripheral Aerobic Blood Culture - Final No growth in 5 days 02/08/18 10:24 Blood - Peripheral Anaerobic Blood Culture - Final No growth in 5 days 02/08/18 13:10 Blood - Peripheral Aerobic Blood Culture - Final No growth in 5 days 02/08/18 13:10 Blood - Peripheral Anaerobic Blood Culture - Final QNS - See aerobic report. Lab - Hematology Results 02/14/18 02/15/18 03:40 04:40 WBC 6.5 9.3 RBC 2.75 L 2.87 L Hgb 7.4 L 7.8 L Hct 23.7 L 24.3 L MCV 86.1 84.5 MCH 27.0 27.2 MCHC 31.3 L 32.2 RDW 20.0 H 19.8 H Plt Count 175 175 MPV 9.3 8.9 Prelim Diff (Auto) Manual diff required Neut % (Auto) 56.1 Lymph % (Auto) 30.2 [place] % (Auto) 10.3 H Eos % (Auto) 3.3 Baso % (Auto) 0.1 Neut # (Auto) 5.2 Lymph # (Auto) 2.8 [place] # (Auto) 1.0 H Eos # (Auto) 0.3 Baso # (Auto) 0.0 WBC Differential Manual diff final . Seg Neuts % (Manual) 60 Lymphocytes % (Manual) 27 Monocytes % (Manual) 7 Eosinophils % (Manual) 6 H Abs Neuts (Manual) 3.9 Differential Comment . Auto diff final Platelet Estimate Normal Platelet Morphology Normal Lab - Chemistry Results 02/13/18 02/13/18 02/14/18 18:16 22:49 03:40 Sodium 149 H Potassium 4.0 Chloride 117 H Carbon Dioxide 24.9 Anion Gap 7 BUN 66 H Creatinine 1.20 Estimated GFR 59 L POC Glucose 287 H 229 H Random Glucose 223 H Calcium 7.3 L* Prot Corrected Calcium 7.9 L Total Protein 6.0 L Prealbumin 02/14/18 02/14/18 02/14/18 05:38 11:36 17:36 Sodium Potassium Chloride Carbon Dioxide Anion Gap BUN Creatinine Estimated GFR POC Glucose 233 H 215 H 130 H Random Glucose Calcium Prot Corrected Calcium Total Protein Prealbumin 02/15/18 02/15/18 02/15/18 00:12 04:40 12:05 Sodium 149 H Potassium 4.6 Chloride 119 H Carbon Dioxide 25.4 Anion Gap 5 BUN 68 H Creatinine 1.16 Estimated GFR 61 L POC Glucose 95 194 H Random Glucose 119 H D Calcium 7.6 L Prot Corrected Calcium Total Protein Prealbumin 10 L 02/15/18 16:41 Sodium Potassium Chloride Carbon Dioxide Anion Gap BUN Creatinine Estimated GFR POC Glucose 196 H Random Glucose Calcium Prot Corrected Calcium Total Protein Prealbumin Imaging: ITS Impressions Chest CT 01/03/18 00:00 CONCLUSION: 1. Large bilateral pleural effusions occupying more than half of the right and left hemithorax. Abdomen/Pelvis CT 01/13/18 00:00 CONCLUSION: 1. Small bilateral pleural effusions and basilar infiltrates with bilateral chest tubes in place. 2. No evidence of ascites or bowel dilatation. Abdomen/Bladder Ultrasound 01/15/18 00:00 CONCLUSION: 1. Negative renal sonogram. Abdomen X-Ray 02/08/18 00:00 CONCLUSION: 1. Nonobstructive bowel gas pattern. 2. Gastrostomy tube in the left upper abdominal quadrant Head CT 02/08/18 00:00 CONCLUSION: 1. Stable prominent senescent changes with mild to moderate periventricular ischemic white matter demyelination. 2. No acute intracranial abnormality.. Head MRI 02/10/18 00:00 CONCLUSION: 1. No acute findings. Extensive cortical volume loss. Moderate white matter ischemic changes. No recent infarct. Chest X-Ray 02/11/18 06:00 CONCLUSION: Diffuse consolidation likely related to edema. Mild bilateral pleural effusions being worse on the left. Physical Exam: GENERAL: unresponsive On vent SKIN: Warm and dry. No rash HEAD: Normocephalic. EYES: No scleral icterus. No injection or drainage. NECK: Supple, trachea midline. + trach in place with large amount of drainage CARDIOVASCULAR: RRR. No murmurs, rubs, gallops RESPIRATORY: Breath sounds equal bilaterally. No accessory muscle use. Scattereed rhonchi GASTROINTESTINAL: Abdomen soft, non-tender, nondistended. +PEG tube in place MUSCULOSKELETAL: No cyanosis, 4+ soft pitting edema. GUl; garcia in place with yellow urine Neuro: obtunded unresponsive no eye contact, not follws commands non vernbal Assessment and Plan - Plan Sacral decub with possible underlying infection, osteomyelitis. Prior h/o ESBL E.coli on 10/24/2017. Possible HCAP GNR UTI ? ESBL given h/o ESBL. 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 Encephalopathy: strokes in hospital, optic neuritis on presentation. Fungemia, C. tropicalis Gram negative UTI: PSAE and ESBL + Kleb: sp complelted treatment PNA Acute VDRF Encepholapathy sp code Aspiration, likely aspiration PNA - Growing Kleb pneumon in spututm S to CFTX Diarea, abx associated dc levaquin cont meropenem complete 14 days of fluconazole from 1st + blood clx
[2018-02-16 05:59] LABS: INR 2.3 Ratio; Prothrombin Time 23.1 sec (9.8-11.6)
[2018-02-16 06:23] LABS: Calcium 7.4 mg/dL (8.5-10.1)
[2018-02-16] MEDS: Sodium Chloride 0.45 % Inj 1,000 ML IV.CONT SCH (06:38)
[2018-02-16 06:39] LABS: Total Protein 5.7 g/dL (6.4-8.2)
[2018-02-16] MEDS: Hydrocortisone Acetate 25 MG Supp RECTAL SCH ×3 (06:39→21:13)
[2018-02-16] MEDS: Insulin NovoLIN Regular Correctional Sugar Inj SQ SCH ×4 (06:42→18:04)
[2018-02-16] MEDS: Famotidine 20 MG Tablet PO SCH ×2 (08:07→22:27)
[2018-02-16] MEDS: Insulin Detemir Inj 1,000 UNIT/10 ML Vial SQ SCH ×2 (08:07→22:24)
[2018-02-16] MEDS: Polyethylene Glycol 3350 17 GM Packet PO SCH (08:08)
[2018-02-16] MEDS: Collagenase Oint 30 GM Tube TOPICAL SCH (08:09)
--- NOTE | 2018-02-16 08:23 | P.PNCC ---
Subjective Subjective Remarks/Hospital Course: This is a 77-year-old male who initially presented with vision changes and concern for optic neuritis versus temporal arteritis. His initial presentation was on 10/14. His hospital course has been complicated by an NSTEMI with troponins which peaked at 10, ESBL E. coli urinary tract infection, rectal bleeding suspected from bleeding hemorrhoids, acute anemia secondary to blood loss with hemoglobin started around 14 and is trended down to 9.7 this morning. On his initial MRA he was found to have significant atherosclerotic cerebrovascular disease in all vascular territories. Today, he had an acute mental status change and was obtunded. Rapid response and stroke alert was called. His initial NIH stroke scale was 22. Dr. goldstein had conversations with Dr. Ulloa and neurology as well as Dr. sierra with gastroenterology. GI feels comfortable with giving thrombolytics and neurology feels strongly that this patient would benefit from systemic IV TPA therapy. I evaluated the patient on arrival to the intensive care unit. The patient is arousable, but very somnolent. He is Greek speaking, and it is very difficult to ascertain whether or not he can follow commands. He does move all extremities spontaneously, although it appears that his left side is weaker than his right. He has noted facial droop. CT head is negative for acute hemorrhage. CTA head neck is significant for the same multivessel cerebrovascular disease that was present on admission. Given the high-risk nature of the stroke as well as his acute anemia this hospitalization, in preparation for giving emergent IV systemic TPA, I placed an arterial line as well as a large-bore peripheral IV so that we could draw serial labs, monitor his hemoglobin, and give blood products if necessary. I also had an additional discussion with the family where I reconfirmed that their goals were aggressive and they fully understood the significant risk of life-threatening hemorrhage associated with systemic TPA in a patient with new anemia and suspected GI bleeding. The family expressed understanding of his condition and understanding of the heightened risk of life-threatening bleeding, but still urged that we needed to get TPA. Immediately after giving IV TPA, patient had a tonic clonic seizure (witnessed on EEG) and became obtunded with acute hypoxic and hypercarbic respiratory failure and was emergently intubated (see separate procedure note for details). 11/10: remains intubated. encephalopathy persists. hgb stable s/p TPA. ~350cc bloody OG tube output, but this is slowing down. 11/11: more awake. on SBT. follows commands. 11/12: remains extubated. off vasopressors. no changes in mental status. 11/18/17 CCM Reconsult Note Patient was transferred to ICU today after a Halicat was called for AMS, hypoxia , high fever. Apparently patient was lethargic since a.m. in the last hour had been unresponsive and hence Halicat was called. Patient had a fever of 101.4 in a.m., T-max is 101.6. I immediately evaluated the patient in the ICU. Patient is completely unresponsive, oxygen saturation 87% on 4 L nasal cannula. Hypopneic. No response to deep pain. Patient was confirmed to be a full code and I proceeded with endotracheal intubation place him on mechanical ventilation as patient was not protecting airway. More history was obtained from discussion with ID Dr. Jalloh. She indicated patient had been increasingly lethargic with fever and also had urinary retention.She has discontinued Ertapenem, and started on meropenem, vancomycin and micafungin. Cultures have been sent and are pending now. Source of sepsis appears to be aspiration pneumonia versus UTI. Repeat UA and panculture pending at this time. Patient was borderline hypotensive prior to intubation and I have started on Levophed to avoid hypotension post intubation. Receiving 1 L normal saline bolus now, give additional fluid bolus if patient requires continued Levophed will place central line 11/19: remains intubated. holding aggrenox for possible thoracentesis today, but family hesitant to consent with concerns over bleeding risk. Cr remains elevated. discussion with Dr. Bernal, unlikely to benefit currently from draining effusion, so at his recommendation, will proceed with attempted weaning from mechanical ventilation and treat effusion conservatively. 11/20: Overnight /early this a.m. ,the patient was noted to have large amount of rectal bleeding. Aggrenox held since 11/18, 2/2 reintubation. Type and screen ordered. Serial H&H currently be performed. Hemodynamically stable. GI has been reconsulted. Protonix previously given PRN, will schedule BID. Patient was reintubated emergently 11/18, plan for continue CPAP trials. Tube feedings until evaluation by GI. ASA placed on hold , in the setting of GI bleeding. 11/21: EGD and colonoscopy performed yesterday. Patient was noted to be constipated ,disimpacted per GI. Patient noted to have hemorrhoids which was clipped. No further bleeding throughout the night. Chest x-ray showed improvement. CPAP trials initiated this a.m.. ASA 81 mg resumed. 11/22: Patient tolerated CPAP trials approximately 13 hours yesterday. Initiation of tube feeds per GI yesterday, no residuals. This am , family concerned patient not responsive. CT brain , ammonia level and EEG pending. Neurology has been reconsulted. Upon my entering the room, this afternoon, the patient was awake, tracking and squeezing my hand upon commands, with right hand. The patient received 1 u PRBC for Hgb 7.2. Post transfusion CBC pending. Plan for quantification of pleural fluid for possible thoracentesis in a.m.. 11/23: No acute events overnight. Patient remains off all sedation. Noted spontaneous eye opening, tracking following commands squeezing hands right greater than left. Neurology following plan for MRI this a.m., repeat EEG pending. Hemoglobin stable this a.m.. Chest x-ray slight improvement, plan for quantification via ultrasound of pleural effusions for possible thoracentesis today. 3 failed attempts at CPAP trials yesterday. 1548-MRI resulted findings consistent of small areas of acute cortical infarct, new since 11/09/2017. I contacted neurology, Dr. Geronimo informed of results. After Dr. Palma's review of imaging and records, it was determined most likely cardioembolic since is affecting both sides and failure with aspirin and Persantine. Ischemic stroke heparin protocol initiated. Careful review secondary to patient history of GI bleed 11/20, thought to be emanating from hemorrhoid ,however due to poor suboptimal prep, they unable to have optimal visualization per Dr. Jones. 11/24: Late entry note. Patient seen and evaluated 614. No acute events overnight. Patient continues on heparin infusion no active signs of bleeding. PTT within therapeutic range. The patient is less responsive this a.m., spontaneous eye opening, not following my commands. Not moving his extremities spontaneously for me as previously performed yesterday. tube feeds reinitiated. Chest x-ray showed further improvement in aeration of lungs the patient continues on FiO2 of 0.35. Plan for CPAP trials today. 11/25: No acute events overnight. Neurological status unchanged. Spontaneous eye opening patient continues not following any commands. Dr. Geronimo at bedside evaluating patient, no change. Patient tolerated CPAP trials approximately 12 hours yesterday. Tolerating tube feeds. Chest x-ray remains unchanged from yesterday. Hemoccult stool negative. Heparin infusion continued. family at bedside. 11/26: Late entry note. Patient seen at 1240pm. Last night the patient was noted to be continuously hyperglycemic. Levemir added to medication regimen 10 mg/day hemoglobin dropped 2 g/dL in 2 days hemoglobin now 7.7, patient to be transfused 1 unit packed red blood. No obvious signs of bleeding Hemoccult was negative. Patient continues on heparin infusion, patient may require tracheostomy and PEG in the near future . Plan to transition to p.o. anticoagulation post procedures. Neurologically the status is unchanged the patient is opens eyes spontaneously no movement of extremities upon my evaluation. Continued CPAP trials currently greater than 6 hours. 11/27: At 1000am, the patient was noted to have melena, approximated at 150 cc per RN evaluation. Heparin infusion discontinued/placed on hold at 10 AM. Stool for Hemoccult blood sent, GI was contacted and informed of the above events. Stat CT of the abdomen and pelvis with p.o. contrast ordered, results pending. Patient previously had been tolerating trickle feeds at 10 cc an hour with no residuals, after initiation of Reglan 5 mg every 8 hours yesterday. Neurologically the patient status is unchanged. Patient does have spontaneous eye opening but does not follow my commands and does not move extremities. Patient's daughter is at bedside, discussed the above events at which she was present for, she is requesting a repeat colonoscopy. I informed her that a CT of the abdomen and pelvis will be obtained, serial hemoglobin will be evaluated and if needed transfusion will be provided and gastroenterology has been contacted and will determine further management if an invasive procedure is required. Hemoglobin continues to be monitored serially, results pending for 10 AM. The patient received 1 unit packed red blood cells, and current hemoglobin trended overnight 8.9 to 8.2 this a.m., posttransfusion. 11/28: hgb continues to decline despite being off heparin. no additional GI interventions are available at this time. clearly the patient has failed anticoagulation with 2 life-threatening bleeding episodes. Although it is clear he may have additional strokes off anticoagulation, we have clear evidence that we are hurting his overall clinical care with his anticoagulation. I explained this at length to the daughter and medical decision maker. however, she insists that she would rather see him of bleeding rather than have any more strokes , and insists that "we can always keep giving him blood". I explained that blood is not without risk, and there is significant risk to anticoagulation, but she is insistent that he be given anticoagulation to prevent further strokes and she has weighed the risks and benefits after having full informed consent, insists upon us restarting the heparin drip. At her insistence, I have restarted it. In addition, I have counseled her that I do not think he will survive this hospitalization, and he will require tracheostomy for further aggressive care. She states that we are not at "day 14" on the vent, and it is not time for a tracheostomy yet. This is a second intubation and we are certainly at risk for complications from endotracheal intubation, and tracheostomy would be the most appropriate next step for this patient, but the family is refusing until WednesdayDecember 01. 11/29 Patient remains intubated, on no sedation. Afebrile. 11/30 No events overnight. Patient tolerated CPAP for most of day yesterday. Remains on Heparin drip. 12/01 Patient remains intubated tolerated CPAP for several hrs yesterday. s/p CT guided right thoracentesis with removal 500ml pleural fluid. On Heparin drip 12/02 No events overnight. Heparin drip stopped this morning for trach and PEG placement today. Afebrile. 12/03 Patient s/p trach and PEG tube placement yesterday. Had bleeding from around trach and PEG tube insertion sites Heparin drip held last night. s/p transfusion 1u PRBC yesterday Hgb 8.0 this morning. Afebrile. On no sedation. 12/04: Continues to have bruising from PEG tube insertion site. Trach site appears to have stopped. Hemoglobin 7 the same receiving 1 unit FFP and 1 PRBCs. Tube feeds of been resumed. On no sedation. 12/05: Afebrile. No further bleeding noted from the tracheostomy site. Overnight reported by the RN that the PEG tube site continues to bleed Surgicel was placed around the opening, small amount of bleeding still noted. Patient hemoglobin remained 7 patient to be transfused 1 unit PRBC's fibrinogen level pending INR within normal limits. 12/06 Patient s/p transfusion 2u PRBC yesterday Hgb 9.5 this morning from 7.2 last night. No bleeding from trach site however patient still having rectal bleeding. 12/07 No events overnight. On ventilator via trach Hgb 9.8 this morning for colonoscopy today. 12/08: seen and examined around 06:30am. no significant change in mental status. hgb 8.9 this AM. remains on heparin drip at [facility]. 12/09: no improvements or changes. very deconditioned. garcia has remained in without clear indication. had 1 episode of urinary retention, but this is a clear source of infection and an additional serious infection would certainly be life-threatening. 12/10 Patient is now on TP's with 28% FIO2, Afebrile. On Heparin drip. 12/11: remains on t-piece x > 48h. no change in neuro exam. remains on heparin drip with stable hgb 7.8. Subjective: 12/12: asked to see patient again today by the hospitalist service for change in condition. I have evaluated the patient and he does not clinically appear any different than yesterday. HR actually lower than yesterday. bladder scan suggestive of 600cc retention. patient has had urinary retention before, although has also had multiple hospital acquired urinary tract infections. risk/ benefit at this time would be in favor of serial q6h straight catheterizations. remains hemodynamically stable. some emesis today and evidence of ileus. 12/31 Reconsult for resp distress Patient is 77 yo with chronic resp failure, trach/PEG tube placement, CVA transferred to [facility] for resp distress trach changes to #6 and patient was placed on mechanical ventilation. CXR showed increasing consolidation patient was given Lasix prior to arrival to [facility]. 01/01 Patient is on ventilator via trach. Afebrile. 01/02 No events overnight. On no drips, Afebrile, CPAP 15/5 with 35% FIO2 overnight. 01/03 Remained on TP breathing comfortably. CXR shows bilateral effusions. Will get CT chest. Give single dose of lasix. ID consulted and following, no fever in 24 hours 01/04: Remains unresponsive, fever trending down. Sputum culture now growing Klebsiella and ESBL E. coli. Urine culture and wound culture also growing ESBL E. coli. Chest tube placed on the right side yesterday with 1.35 L output since placement. Urine output excellent with single dose of Lasix 2.5 L in 24 hours. No fever in 24 hours. Repeat 40 mg IV Lasix 1 [facility] RECONSULT NOTE 02/08/18: Mr. Glynn is a 77-year-old man who is known to our service. In short, he was initially admitted with possible optic neuritis versus temporal arteritis in September. Care complicated by an STEMI, multiple infections with healthcare associated pneumonia UTIs. During hospitalization he also received TPA for Stroke, MRI of the brain performed on 12/24/2017, showed infarction involving the left corpus callosum and splenium of the corpus callosum. The patient had undergone tracheostomy placement. And since last month had been on hospitalist service and off ventilator. He is currently receiving Levaquin for stenotrophomonas infection, Diflucan for candidemia. Apparently patient was noted to aspirate earlier this a.m. At 7250 AM patient was found unresponsive pulseless rhythm asystole and CPR was started. Total 3 amp of epinephrine given. Patient had a cuff less trach with evidence of aspiration, large amount of tube feeds aspirated from tracheostomy tube. This was exchanged for a 8.0 Shiley tracheostomy cuffed. With improved bag and mask ventilation and after 3 epinephrine, 1 amp of calcium, 1 amp of bicarb, patient regained ROSC SUBJ 02/09/18: Remains very critical not on any sedation he is unresponsive eyes are spontaneously open but no tracking. Very slight withdrawal to pain on the upper extremities. CT of the head unremarkable. Currently borderline hypotensive off pressors. Received 2 units of PRBC for hemoglobin 6.6 yesterday. Prognosis remained poor. Neurology consulted per family request 02/10/18: Remains critical with no improvement in neuro status or clinical status. Eyes are spontaneously open but no response to threat no tracking. Neurology consulted MRI and EEG pending at this time. Currently remains on Levophed at 1 mcg/min. Chest x-ray with bilateral infiltrates sputum culture growing GNR. Na 155. Free water flushes and half-normal saline rate increased. 02/11: Remains unresponsive off all sedation. Osmolality slowly returning to baseline. Antibiotics appropriate for organism. Tube feeds tolerated at 50 mL' s per hour. Unable to wean from mechanical ventilation. 02/12: Osmolality slowly returning to baseline. Tube feeds now tolerated at 60 mL's per hour. Unable to wean from mechanical ventilation due to fatigue. 02/13: Placed on spontaneous breathing trial this morning but required 18 of pressure support to maintain an adequate minute volume. Will work from this point and attempt to wean pressure support over the next many days. Will place back on mechanical rate nightly. Anticoagulation is been particularly cumbersome and made more difficult by Diflucan. Will restart Coumadin again this morning as INR is declined to 2.2 02/14: Remains very weak. Essentially unresponsive. Tolerates brief periods of spontaneous breathing trial blood pressure support must be markedly elevated to the 1820 range. State of hydration gradually improving as osmolality declines and serum creatinine improves. Will continue hypotonic solutions IV. 02/15: Remains unresponsive. Continues to fail spontaneous breathing trials due to lack of respiratory effort. Suffers from tachypnea with an efficient small tidal volumes regardless of the amount of pressure support. 02/16: Onset of copious watery diarrhea is contaminating buttock wounds. We will insert a dignity shield system for fecal management. Remains unresponsive to noxious stimulation. He does have a weak cough reflex. Objective Vital Signs / I&O: Vital Signs 02/15/18 10:00 02/15/18 11:24 02/15/18 12:00 Temperature 97.6 F Pulse Rate 91 H 85 Respiratory Rate 24 26 H Blood Pressure 116/65 Pulse Oximetry 99 99 02/15/18 14:00 02/15/18 15:15 02/15/18 16:00 Temperature 97.7 F Pulse Rate 88 82 Respiratory Rate 24 26 H Blood Pressure 117/64 Pulse Oximetry 98 99 02/15/18 18:00 02/15/18 20:00 02/15/18 20:49 Temperature 97.9 F Pulse Rate 86 84 Respiratory Rate 22 21 Blood Pressure 112/61 Pulse Oximetry 100 02/15/18 22:00 02/16/18 00:00 02/16/18 01:26 Temperature 98.2 F Pulse Rate 83 98 H Respiratory Rate 20 23 Blood Pressure 119/56 L Pulse Oximetry 99 02/16/18 02:00 02/16/18 03:51 02/16/18 04:00 Temperature 98.2 F Pulse Rate 88 86 Respiratory Rate 21 20 Blood Pressure 107/61 Pulse Oximetry 99 02/16/18 06:00 02/16/18 07:47 Temperature Pulse Rate 88 Respiratory Rate 27 H Blood Pressure Pulse Oximetry 100 Intake & Output 02/15/18 02/16/18 02/16/18 18:59 06:59 18:59 Intake Total 459 / 459 782 / 782 Output Total 1025 / 1025 3321 / 3321 Balance -566 / -566 -2539 / -2539 Weight 94.4 kg Intake: Oral 0 / 0 Tube Feeding 259 / 259 259 / 259 Tube Irrigant 200 / 200 200 / 200 Water Bolus Amount 200 / 200 Other 123 / 123 Output: Urine 1300 / 1300 Stool 0 / 0 Emesis 1 / 1 Urine Amount (Catheter) 1025 / 1025 1750 / 1750 Indwelling Urethral Catheter 1025 / 1025 1750 / 1750 Chest Tube Drainage 270 / 270 Right 220 / 220 Right Mid-Axillary Chest 50 / 50 Other: Post Void Residual 300 # Voids 2 # Incontinent Voids 0 Date of Last Bowel Movement 02/11/18 02/16/18 # Bowel Movements 0 # Incontinent Bowel Movements 4 Result Diagrams: 02/15/18 04:40 02/16/18 04:55 Objective Remarks: GENERAL: Patient is 77 yo encephalopathic, unresponsive on the vent. Eyes are closed. SKIN: Warm and dry. Stage IV sacral decubitus. HEAD: Normocephalic. Tongue dry. EYES: No scleral icterus. No injection. Pupils equal sluggish reaction to light. NECK: Cuffed tracheostomy tube in place. Moderate secretions persist. CARDIOVASCULAR: S1-S2 normal no murmurs. No JVD. RESPIRATORY: Breath sounds equal bilaterally. Moderate wheezes and scattered rhonchi GASTROINTESTINAL: Abdomen soft. +PEG tube. tube feeds at 60 ml per hour MUSCULOSKELETAL: No cyanosis, or edema. NEURO: Eyes are closed. No tracking no response to voice or visual threat. Slight withdrawal to the upper extremity, lower extremities remain flaccid. Assessment and Plan - Assessment and Plan Plan: Assessment: Asystole/Cardiac arrest Worsening encephalopathy most likely anoxia contributing Aspiration pneumonia Acute on chronic hypoxemic and hypercapnic resp failure Combined shock, septic and cardiogenic Healthcare associated pneumonia, stenotrophomonas Candidemia UTI with ESBL E. coli Hyponatremia CVA Anemia requiring transfusion Sacral decubitus ulcer s/p NSTEMI Optic neuritis Status post tracheostomy and PEG tube placement Plan: Impression: Neuro -Acute worsening of encephalopathy secondary to systolic cardiac arrest, anoxia -CT head 02/08/[address] Pereira reconsulted per family request -MRI EEG today, pending -History of L ENID infarct. Status post systemic TPA on November 09 -On warfarin INR 3.9, put on hold, pharmacy dosing -Neuropsychology has followed. Continue Ritalin -Optic neuritis. Status post treatment with IV hydrocortisone -Remains unresponsive. CV: -Asystole/cardiac arrest seems secondary to hypoxia and hypercapnia from severe aspiration -Levophed to keep map above 65 -s/p IV fluid normal saline 2 L bolus, 2U PRBC -Increase half-normal saline to 150 ml per hour due to hypernatremia, increase free water flushes to 300 mL every 6 -Continue Coumadin, on hold now due to the INR 3.9 -Echo 10/19: LV systolic function is moderately reduced, EF 40-45%. Cardiology has followed Dr. Hernández -Jez 2mg daily and Coreg 3.125mg BID on hold due to hypotension. On Lipitor 80mg qhs Pulm: -Cardiac arrest seems to be secondary to respiratory arrest. Evidence of aspiration at the time of arrest -Cuff less tracheostomy tube removed and new Shiley 8 cuffed tracheostomy placed 02/08/18 -PRVC/AC ventilation. DuoNeb every 6 hours scheduled and as needed -Failed CPAP due to apnea -ICU vent bundle. Pulm toilet, trach care. -GNR in sputum culture, On Levaquin for stenotrophomonas, Diflucan for candidemia, meropenem for previous ESBL E Coli HCAP -Antibiotic and antifungal coverage remains appropriate. GI -Currently tube feeds at 10 mL/h, advance as tolerated -On Pepcid 10mg BID -Free water flushes 300 mils every 6 hours -Having BMs -Tube feeds at 60 mL's per hour 02/12. -Tube feeds tolerated with acceptable gastric residual however profuse diarrhea has started. : -Monitor renal function, electrolytes replacement per protocol -Increase half-normal saline to 150 ml per hour due to hypernatremia, increase free water flushes to 300 mL every 6 ID -Patient was receiving Levaquin for stenotrophomonas, Diflucan for candidemia -Added meropenem 02/08/18 for previous ESBL E. coli HCAP -Previous UTI with ESBL E. coli, Previous healthcare associated pneumonia with Klebsiella and ESBL E. coli -F/U blood and sputum culture and urine culture. GNR in sputum 02/08 -ID Dr. Jalloh following Skin -Sacral wound-Seen by Plastic surgery; debridement declined per patient's family -Wound care is following- apply dressings per wound management recommendations Heme: -Monitor hemoglobin closely. Status post 2 units PRBC on 02/08/2018 -Previous GI bleed; Status post EGD colonoscopy. GI has signed off, patient with healed rectal ulcers and hemorrhoids. -INR therapeutic -If recurrent anemia will reconsult GI Endo -On SSI. Levemir for glycemic control, increasing dosage. GI prophylaxis- on Pepcid DVT prophylaxis- On Coumadin hold due to INR 3.9 Overall impression: Patient remains critically ill after aspiration with hypoxemic and hypercarbic respiratory failure leading to asystolic cardiac arrest. Ten minutes of CPR with return of spontaneous circulation after aggressive resuscitation following CPR, patient remains hypoxemic and encephalopathy. Remains unresponsive, weak respiratory effort is ineffective, unable to begin weaning from ventilator. Prognosis remains poor.
--- NOTE | 2018-02-16 09:24 | P.PN ---
Subjective Interval history: unresponsive on the ventilator Physical Exam Vital signs: Vital Signs 02/15/18 10:00 02/15/18 11:24 02/15/18 12:00 Temperature 97.6 F Pulse Rate 91 H 85 Respiratory Rate 24 26 H Blood Pressure 116/65 Pulse Oximetry 99 99 02/15/18 14:00 02/15/18 15:15 02/15/18 16:00 Temperature 97.7 F Pulse Rate 88 82 Respiratory Rate 24 26 H Blood Pressure 117/64 Pulse Oximetry 98 99 02/15/18 18:00 02/15/18 20:00 02/15/18 20:49 Temperature 97.9 F Pulse Rate 86 84 Respiratory Rate 22 21 Blood Pressure 112/61 Pulse Oximetry 100 02/15/18 22:00 02/16/18 00:00 02/16/18 01:26 Temperature 98.2 F Pulse Rate 83 98 H Respiratory Rate 20 23 Blood Pressure 119/56 L Pulse Oximetry 99 02/16/18 02:00 02/16/18 03:51 02/16/18 04:00 Temperature 98.2 F Pulse Rate 88 86 Respiratory Rate 21 20 Blood Pressure 107/61 Pulse Oximetry 99 02/16/18 06:00 02/16/18 07:47 Temperature Pulse Rate 88 Respiratory Rate 27 H Blood Pressure Pulse Oximetry 100 Intake & Output 02/15/18 02/16/18 02/16/18 18:59 06:59 18:59 Intake Total 459 / 459 782 / 782 Output Total 1025 / 1025 3321 / 3321 Balance -566 / -566 -2539 / -2539 Weight 94.4 kg Intake: Oral 0 / 0 Tube Feeding 259 / 259 259 / 259 Tube Irrigant 200 / 200 200 / 200 Water Bolus Amount 200 / 200 Other 123 / 123 Output: Urine 1300 / 1300 Stool 0 / 0 Emesis 1 / 1 Urine Amount (Catheter) 1025 / 1025 1750 / 1750 Indwelling Urethral Catheter 1025 / 1025 1750 / 1750 Chest Tube Drainage 270 / 270 Right 220 / 220 Right Mid-Axillary Chest 50 / 50 Other: Post Void Residual 300 # Voids 2 # Incontinent Voids 0 Date of Last Bowel Movement 02/11/18 02/16/18 02/16/18 # Bowel Movements 0 # Incontinent Bowel Movements 4 Narrative: GENERAL:on vent support male patient, UNRESPONSIVE. . SKIN: Warm and dry. +sacral decub per wound care notes. HEAD: Atraumatic. Normocephalic. EYES: Pupils equal and round. No scleral icterus. No injection or drainage. ENT: No nasal bleeding or discharge. Mucous membranes pink and moist. NECK: Trachea midline. Trach in place. CARDIOVASCULAR: Regular rate and rhythm. RESPIRATORY: No accessory muscle use. Clear to auscultation. Breath sounds equal bilaterally. GASTROINTESTINAL: Abdomen soft, non-tender, nondistended. PEG in place. GENITOURINARY: Lizarraga in place - placed 01/21 MUSCULOSKELETAL: Extremities without clubbing, cyanosis, or edema. NEUROLOGICAL: Awake. Unable to follow commands. Nonverbal. PSYCHIATRIC: Calm. - Urinary Catheter Management Straight Cath placed during this visit: yes Urethral indwelling: Yes Reason for continuing: Acute urinary retention Insertion date: 01/21/18 Insertion time: 08:00 Indwelling Urethral Catheter Cath placed during this visit: yes, but has since been removed by the nurse Urethral indwelling: Yes Reason for continuing: Hourly intake/output Insertion date: 01/21/18 Insertion time: 16:18 Removal date: 01/20/18 Removal time: 15:15 Results - Labs CBC & Chem 7: 02/15/18 04:40 02/16/18 04:55 Laboratory Results - last 24 hr 02/15/18 02/15/18 02/16/18 12:05 16:41 04:55 PT INR Sodium 150 H Potassium 4.0 Chloride 116 H Carbon Dioxide 24.0 Anion Gap 10 BUN 75 H Creatinine 1.25 Estimated GFR 56 L POC Glucose 194 H 196 H Random Glucose 245 H D Calcium 7.4 L* Prot Corrected Calcium 8.2 L Total Protein 5.7 L 02/16/18 04:55 PT 23.1 H INR 2.3 Sodium Potassium Chloride Carbon Dioxide Anion Gap BUN Creatinine Estimated GFR POC Glucose Random Glucose Calcium Prot Corrected Calcium Total Protein Microbiology 02/08/18 13:15 Blood - Peripheral Blood Fungal Culture - Preliminary No growth in 1 week 02/08/18 13:15 Blood - Peripheral Blood Fungal Culture - Final 01/04/18 12:45 Fluid - Pleural fluid Acid Fast Bacilli Smear - Final No acid fast bacilli seen 01/04/18 12:45 Fluid - Pleural fluid Mycobacterial Culture - Final No growth in 6 weeks 02/11/18 13:40 Blood - Peripheral Aerobic Blood Culture - Preliminary No growth in 4 days 02/11/18 13:40 Blood - Peripheral Anaerobic Blood Culture - Preliminary No growth in 4 days 02/11/18 13:46 Blood - Peripheral Aerobic Blood Culture - Preliminary No growth in 4 days 02/11/18 13:46 Blood - Peripheral Anaerobic Blood Culture - Preliminary No growth in 4 days Assessment and Plan - Plan RESPIRATORY FAILURE S/P cva S/P NM S/P trach ACUTE ASPIRATION plan VENT SUPPORT PULM TOILET ANTIBX PER ID OUTLOOK POOR
--- NOTE | 2018-02-16 18:40 | P.PNPAL ---
Reason for Visit Reason for visit: a. To assist with evaluation and management of symptoms including: pain, dyspnea, encephalopathy b. To assist medical decision maker(s) with: better understanding of current medical conditions; weighing benefits/burdens of medical treatment options; making medical treatment decisions. Subjective Subjective/Interval History: Patient seen and examined in ICU. and daughterKatie at bedside. Patient remains unresponsive on mech vent (FiO2 35%) to trach. He continues to fail spontaneous breath trials. + Weak cough. He has now developed copious amounts of watery diarrhea, Frantz shield has been placed for fecal management in attempt to protect buttock wound. Clinical data: * Afebrile. Heart rate 85. BP 108/61. Oxygen saturation 97% * Sodium 150, potassium 4.0, chloride 116, BUN 75, creatinine 1.25, GFR 56, calcium 7.4, protein corrected calcium 8.2 * Total protein 5.7 * 02/08/18 and 02/11/18 - blood cultures no growth to date. * 02/08/18 - sputum culture -Klebsiella pneumoniae * Patient only tolerating trickle tube feeds at 20 cc/h due to recent high residual. Dietary following. Infectious disease, Dr. Jalloh following. Pulmonology, Dr. Bernal following. Family/Friend Interactions: Met with daughterRosa Isela "Katie" at bedside. Spent a long time reviewing patient's long hospital course through the eyes of the patient's daughter. She has a good understanding of current medical conditions and that the patient may despite ongoing efforts. She and her family have a great deal of rosetta and are "leaving this in God's hands." Family believes that it is God's will and if he dies they will be at peace with God's decision. She verbalizes frustration that staff continues to "pressure" for DNR status. She and her family believe that the patient would want them to try everything and that if it is God's will they will take him despite our efforts. Additional time spent reviewing current test results. She is appropriately tearful. Verbalizes stressors this is taken on her and her family. She is very appreciative for the time spent today and welcomes continued palliative care visits. Offered translation for the patient's , daughter Rosa Isela indicates that she is communicating with the patient's and thanks me for offering, politely declines. Palliative care number provided. We will continue to follow. Advance Directives Living Will: Never completed Health Care Surrogate: Never completed Durable Power of Financial Legal Assistant: Never completed Documented care wishes:: No written documentation of health care goals/preferences. . Significant change in goals:: FULL CODE. Family desires continued aggressive care in hopes that God will provide a miracle. Family understands his overall poor condition and that he could while in the hospital. Family desires continued "full CODE STATUS even if he codes 100 more times stating that God is in control and will decide when it is his time." Objective Vital Signs: Vital Signs 02/15/18 20:00 02/15/18 20:49 02/15/18 22:00 Temperature 97.9 F Pulse Rate 84 83 Respiratory Rate 22 21 Blood Pressure 112/61 Pulse Oximetry 100 02/16/18 00:00 02/16/18 01:26 02/16/18 02:00 Temperature 98.2 F Pulse Rate 98 H 88 Respiratory Rate 20 23 Blood Pressure 119/56 L Pulse Oximetry 99 02/16/18 03:51 02/16/18 04:00 02/16/18 06:00 Temperature 98.2 F Pulse Rate 86 88 Respiratory Rate 21 20 Blood Pressure 107/61 Pulse Oximetry 99 02/16/18 07:47 02/16/18 08:00 02/16/18 10:00 Temperature 97.6 F Pulse Rate 86 85 Respiratory Rate 27 H 28 H Blood Pressure 119/65 Pulse Oximetry 100 02/16/18 11:20 02/16/18 12:00 02/16/18 14:00 Temperature 96.6 F L Pulse Rate 86 86 Respiratory Rate 29 H 30 H Blood Pressure 108/61 Pulse Oximetry 98 97 02/16/18 15:42 02/16/18 16:00 Temperature Pulse Rate 85 Respiratory Rate 20 Blood Pressure Pulse Oximetry 98 Intake & Output 02/15/18 02/16/18 02/16/18 18:59 06:59 18:59 Intake Total 559 / 559 782 / 782 640 / 640 Output Total 1025 / 1025 3321 / 3321 1800 / 1800 Balance -466 / -466 -2539 / -2539 -1160 / -1160 Weight 94.4 kg Intake: IV 100 / 100 Rocephin Inj 2,000 MG In NS Inj 100 / 100 100 ML @ 200 mls/hr IV.SIG Q24H [facility] Rx#:[id number] Oral 0 / 0 Tube Feeding 259 / 259 259 / 259 240 / 240 Tube Irrigant 200 / 200 200 / 200 400 / 400 Water Bolus Amount 200 / 200 Other 123 / 123 Output: Urine 1300 / 1300 Stool 0 / 0 Emesis 1 / 1 Urine Amount (Catheter) 1025 / 1025 1750 / 1750 1800 / 1800 Indwelling Urethral Catheter 1025 / 1025 1750 / 1750 1800 / 1800 Chest Tube Drainage 270 / 270 Right 220 / 220 Right Mid-Axillary Chest 50 / 50 Other: Post Void Residual 300 # Voids 2 # Incontinent Voids 0 Date of Last Bowel Movement 02/11/18 02/16/18 02/16/18 # Bowel Movements 0 # Incontinent Bowel Movements 4 1 Physical Exam: CONSTITUTIONAL/GENERAL: This is a frail elderly, critically ill appearing gentleman; unresponsive. TUBES/LINES/DRAINS: Tracheostomy to vent, peg tube, peripheral IVs, Lizarraga catheter, frantz shield, SCDs SKIN: Warm to touch. ENT: Unable to assess hearing. Nose without bleeding. Mucous membranes dry. Trach collar. CARDIOVASCULAR: Irregular rhythm, no murmur. Generalized pitting edema. RESPIRATORY/CHEST: Diminished to auscultation. Few scattered rhonchi. GASTROINTESTINAL: Abdomen soft, round. Bowel sounds present. NEUROLOGICAL: Unresponsive, no response to noxious stimuli. PSYCHIATRIC: Unable to assess due to level of responsiveness. . Diagnostic Tests Laboratory: Laboratory Results - last 72 hr 02/13/18 02/13/18 02/14/18 18:16 22:49 03:40 WBC 6.5 RBC 2.75 L Hgb 7.4 L Hct 23.7 L MCV 86.1 MCH 27.0 MCHC 31.3 L RDW 20.0 H Plt Count 175 MPV 9.3 Prelim Diff (Auto) Manual diff required Neut % (Auto) Lymph % (Auto) Morris % (Auto) Eos % (Auto) Baso % (Auto) Neut # (Auto) Lymph # (Auto) Morris # (Auto) Eos # (Auto) Baso # (Auto) WBC Differential Manual diff final Seg Neuts % (Manual) 60 Lymphocytes % (Manual) 27 Monocytes % (Manual) 7 Eosinophils % (Manual) 6 H Abs Neuts (Manual) 3.9 Differential Comment . Platelet Estimate Normal Platelet Morphology Normal PT INR Sodium Potassium Chloride Carbon Dioxide Anion Gap BUN Creatinine Estimated GFR POC Glucose 287 H 229 H Random Glucose Calcium Prot Corrected Calcium Total Protein Prealbumin 02/14/18 02/14/18 02/14/18 03:40 03:40 05:38 WBC RBC Hgb Hct MCV MCH MCHC RDW Plt Count MPV Prelim Diff (Auto) Neut % (Auto) Lymph % (Auto) Morris % (Auto) Eos % (Auto) Baso % (Auto) Neut # (Auto) Lymph # (Auto) Morris # (Auto) Eos # (Auto) Baso # (Auto) WBC Differential Seg Neuts % (Manual) Lymphocytes % (Manual) Monocytes % (Manual) Eosinophils % (Manual) Abs Neuts (Manual) Differential Comment Platelet Estimate Platelet Morphology PT 21.3 H INR 2.1 Sodium 149 H Potassium 4.0 Chloride 117 H Carbon Dioxide 24.9 Anion Gap 7 BUN 66 H Creatinine 1.20 Estimated GFR 59 L POC Glucose 233 H Random Glucose 223 H Calcium 7.3 L* Prot Corrected Calcium 7.9 L Total Protein 6.0 L Prealbumin 02/14/18 02/14/18 02/15/18 11:36 17:36 00:12 WBC RBC Hgb Hct MCV MCH MCHC RDW Plt Count MPV Prelim Diff (Auto) Neut % (Auto) Lymph % (Auto) Morris % (Auto) Eos % (Auto) Baso % (Auto) Neut # (Auto) Lymph # (Auto) Morris # (Auto) Eos # (Auto) Baso # (Auto) WBC Differential Seg Neuts % (Manual) Lymphocytes % (Manual) Monocytes % (Manual) Eosinophils % (Manual) Abs Neuts (Manual) Differential Comment Platelet Estimate Platelet Morphology PT INR Sodium Potassium Chloride Carbon Dioxide Anion Gap BUN Creatinine Estimated GFR POC Glucose 215 H 130 H 95 Random Glucose Calcium Prot Corrected Calcium Total Protein Prealbumin 02/15/18 02/15/18 02/15/18 04:40 04:40 04:40 WBC 9.3 RBC 2.87 L Hgb 7.8 L Hct 24.3 L MCV 84.5 MCH 27.2 MCHC 32.2 RDW 19.8 H Plt Count 175 MPV 8.9 Prelim Diff (Auto) Neut % (Auto) 56.1 Lymph % (Auto) 30.2 Morris % (Auto) 10.3 H Eos % (Auto) 3.3 Baso % (Auto) 0.1 Neut # (Auto) 5.2 Lymph # (Auto) 2.8 Morris # (Auto) 1.0 H Eos # (Auto) 0.3 Baso # (Auto) 0.0 WBC Differential . Seg Neuts % (Manual) Lymphocytes % (Manual) Monocytes % (Manual) Eosinophils % (Manual) Abs Neuts (Manual) Differential Comment Auto diff final Platelet Estimate Platelet Morphology PT 18.8 H INR 1.9 Sodium 149 H Potassium 4.6 Chloride 119 H Carbon Dioxide 25.4 Anion Gap 5 BUN 68 H Creatinine 1.16 Estimated GFR 61 L POC Glucose Random Glucose 119 H D Calcium 7.6 L Prot Corrected Calcium Total Protein Prealbumin 10 L 02/15/18 02/15/18 02/16/18 12:05 16:41 04:55 WBC RBC Hgb Hct MCV MCH MCHC RDW Plt Count MPV Prelim Diff (Auto) Neut % (Auto) Lymph % (Auto) Morris % (Auto) Eos % (Auto) Baso % (Auto) Neut # (Auto) Lymph # (Auto) Morris # (Auto) Eos # (Auto) Baso # (Auto) WBC Differential Seg Neuts % (Manual) Lymphocytes % (Manual) Monocytes % (Manual) Eosinophils % (Manual) Abs Neuts (Manual) Differential Comment Platelet Estimate Platelet Morphology PT INR Sodium 150 H Potassium 4.0 Chloride 116 H Carbon Dioxide 24.0 Anion Gap 10 BUN 75 H Creatinine 1.25 Estimated GFR 56 L POC Glucose 194 H 196 H Random Glucose 245 H D Calcium 7.4 L* Prot Corrected Calcium 8.2 L Total Protein 5.7 L Prealbumin 02/16/18 02/16/18 02/16/18 04:55 11:22 17:05 WBC RBC Hgb Hct MCV MCH MCHC RDW Plt Count MPV Prelim Diff (Auto) Neut % (Auto) Lymph % (Auto) Morris % (Auto) Eos % (Auto) Baso % (Auto) Neut # (Auto) Lymph # (Auto) Morris # (Auto) Eos # (Auto) Baso # (Auto) WBC Differential Seg Neuts % (Manual) Lymphocytes % (Manual) Monocytes % (Manual) Eosinophils % (Manual) Abs Neuts (Manual) Differential Comment Platelet Estimate Platelet Morphology PT 23.1 H INR 2.3 Sodium Potassium Chloride Carbon Dioxide Anion Gap BUN Creatinine Estimated GFR POC Glucose 238 H 182 H Random Glucose Calcium Prot Corrected Calcium Total Protein Prealbumin Result Diagrams: 02/15/18 04:40 02/16/18 04:55 Microbiology: Microbiology 02/11/18 13:40 Aerobic Blood Culture - Final Blood - Peripheral No growth in 5 days Anaerobic Blood Culture - Final No growth in 5 days 02/11/18 13:46 Aerobic Blood Culture - Final Blood - Peripheral No growth in 5 days Anaerobic Blood Culture - Final No growth in 5 days 02/08/18 13:15 Blood Fungal Culture - Preliminary Blood - Peripheral No growth in 1 week Blood Fungal Culture - Final 01/04/18 12:45 Acid Fast Bacilli Smear - Final Fluid - Pleural fluid No acid fast bacilli seen Mycobacterial Culture - Final No growth in 6 weeks 01/03/18 17:00 Acid Fast Bacilli Smear - Final Fluid - Pleural fluid No acid fast bacilli seen Mycobacterial Culture - Final No growth in 6 weeks Imaging: Chest CT 01/03/18 00:00 CONCLUSION: 1. Large bilateral pleural effusions occupying more than half of the right and left hemithorax. Abdomen/Pelvis CT 01/13/18 00:00 CONCLUSION: 1. Small bilateral pleural effusions and basilar infiltrates with bilateral chest tubes in place. 2. No evidence of ascites or bowel dilatation. Abdomen/Bladder Ultrasound 01/15/18 00:00 CONCLUSION: 1. Negative renal sonogram. Abdomen X-Ray 02/08/18 00:00 CONCLUSION: 1. Nonobstructive bowel gas pattern. 2. Gastrostomy tube in the left upper abdominal quadrant Head CT 02/08/18 00:00 CONCLUSION: 1. Stable prominent senescent changes with mild to moderate periventricular ischemic white matter demyelination. 2. No acute intracranial abnormality.. Head MRI 02/10/18 00:00 CONCLUSION: 1. No acute findings. Extensive cortical volume loss. Moderate white matter ischemic changes. No recent infarct. Chest X-Ray 02/11/18 06:00 CONCLUSION: Diffuse consolidation likely related to edema. Mild bilateral pleural effusions being worse on the left. Procedures: * 11/09/17 - Intubation * 11/11/17 - Extubated * 11/18/17 - Re-intubated * Tracheostomy * PEG tube * Bilateral chest tubes for pleural effusions 01/14/18 Assessment and Plan - Disease Oriented Problem List (1) Aspiration pneumonia Comment: Recurrent 02/08/18, with cardiac arrest (2) Cardiac arrest Comment: 02/08/18, with apparent hypoxic brain injury (3) CVA (cerebral vascular accident) (4) Diabetes (5) Anemia (6) Hypoalbuminemia (7) Wound of sacral region (8) Fungemia (9) Carotid stenosis (10) Debility - Symptom Scale (1) Pain 0-10 Scale: Unable to quantify (2) Encephalopathy 0-10 Scale: Unable to quantify (3) Dyspnea 0-10 Scale: Unable to quantify Pertinent Non-Medical Issues: Psychosocial: Patient was born and raised in [place], he lives in [place]. Primary language is Slovak. Patient is , retired, has 2 daughters. Highest level of education is high school. Spiritual: [employer]. Spirituality and prayer have been very important for the patient's family. Legal: No known advanced directives have been completed. Ethical issues impacting care: Patient incapacitated for medical decision- making. Important Contacts: Family providing son-in-law's contact information: Avtar Ashraf . -pending information Daughter Alexandra -pending contact information Daughter Lanette -not very forthcoming with contact info. State "I am always here." Prognosis: Patient with a complicated prolonged hospitalization with multiple complications including recent cardiac arrest and apparent anoxic brain injury. He will in the hospital. Patient is certainly eligible for hospice services at such time that the medical decision makers are ready to opt for comfort oriented care. . Code Status: Full Code Plan: * HEALTHCARE DECISION-MAKING: Patient incapacitated for medical decision-making secondary to clinical condition. He will not recover that capacity. has indicated she wants her daughters to manage medical decisions especially [place]. does not want to participate in medical decision making. * FULL CODE * GOALS OF CARE: 02/16/18: Met with daughter, Rosa Isela "Katie" at bedside. Spent a long time reviewing patient's long hospital course through the eyes of the patient's daughter. She has a good understanding of current medical conditions and that the patient may despite ongoing efforts. She and her family have a great deal of rosetta and are "leaving this in God's hands." Family believes that it is God's will and if he dies they will be at peace with God's decision. She verbalizes frustration that staff continues to "pressure" for DNR status. She and her family believe that the patient would want them to try everything and that if it is God's will they will take him despite our efforts. SYMPTOMS: = * Debility: Multifactorial secondary to multiple acute on chronic illnesses and prolonged hospitalization, severe hypoalbuminemia. Remains critically ill. * Encephalopathy probably multi-factorial -- stroke, cardiac arrest with CPR, infection, anoxic brain injury, prolonged hospitalization, etc. * Pain: Secondary to lines, prolonged bedbound status, wounds, catheter, vascular access lines, etc. No further recommendations at this time. * Dyspnea: Managed with mechanical ventilation. Recurrent aspiration 02/08/18 * Disposition -- it is apparent that the patient will not survive this hospitalization. * Palliative care will continue to follow to assist with symptom management and to further clarify goals of medical treatment as the clinical course evolves. . . Attestation Attestation: To help prompt me to consider important information that might be impacting today's encounter and assessment, information from prior notes written by myself or my colleagues may have been "brought forward" into today's note. My signature on this note, however, is an attestation that I personally performed the exam, history, and/or decision-making noted today, and, unless otherwise indicated, the interactions with patient, family, and staff as well as the review of records all occurred today. I also attest that the listed assessment and stated plan reflect my best clinical judgment today based on the combination of historical information, prior notes, and today's exam/ interactions. When time spent is documented, it refers only to time spent today by the signer, or if indicated, combined time spent today by collaborating physician/nurse practitioner.
[2018-02-16] MEDS ORDERED: Albumin Human 25% Inj 100 ML IV.SIG ONE (23:00)
[2018-02-17 00:45] LABS: Potassium 3.7 meq/L (3.5-5.1)
[2018-02-17 00:46] LABS: Magnesium 1.9 mg/dL (1.5-2.5)
[2018-02-17] MEDS: Insulin NovoLIN Regular Correctional Sugar Inj SQ SCH ×4 (00:53→18:25)
[2018-02-17 04:26] LABS: Prothrombin Time 30.6 sec (9.8-11.6)
--- NOTE | 2018-02-17 08:02 | P.PN ---
Subjective Interval history: UNRESPONSIVE VENT DEPENDENT Physical Exam Vital signs: Vital Signs 02/16/18 10:00 02/16/18 11:20 02/16/18 12:00 Temperature 96.6 F L Pulse Rate 85 86 Respiratory Rate 29 H 30 H Blood Pressure 108/61 Pulse Oximetry 98 97 02/16/18 14:00 02/16/18 15:42 02/16/18 16:00 Temperature 98.1 F Pulse Rate 86 84 Respiratory Rate 20 23 Blood Pressure 107/56 L Pulse Oximetry 98 98 02/16/18 18:00 02/16/18 20:00 02/16/18 21:05 Temperature 98.1 F Pulse Rate 84 88 Respiratory Rate 21 23 Blood Pressure 114/62 Pulse Oximetry 97 97 02/16/18 22:00 02/16/18 23:42 02/17/18 00:00 Temperature 98.3 F Pulse Rate 96 H 84 Respiratory Rate 23 19 Blood Pressure 113/62 Pulse Oximetry 100 98 02/17/18 02:00 02/17/18 03:21 02/17/18 04:00 Temperature 98.8 F Pulse Rate 84 84 Respiratory Rate 24 20 Blood Pressure 104/59 L Pulse Oximetry 99 98 02/17/18 06:00 02/17/18 07:35 Temperature Pulse Rate 86 Respiratory Rate Blood Pressure Pulse Oximetry 97 Intake & Output 02/16/18 02/17/18 02/17/18 18:59 06:59 18:59 Intake Total 640 / 640 995 / 995 Output Total 1800 / 1800 1600 / 1600 Balance -1160 / -1160 -605 / -605 Weight 91.3 kg Intake: IV 200 / 200 Flexbumin 25% Inj 100 ML @ 200 100 / 100 mls/hr IV.SIG STAT ONE Rx#: [id number] Rocephin Inj 2,000 MG In NS Inj 100 / 100 100 ML @ 200 mls/hr IV.SIG Q24H EDE Rx#:[id number] Oral 0 / 0 Tube Feeding 240 / 240 475 / 475 Tube Irrigant 400 / 400 120 / 120 Water Bolus Amount 200 / 200 Output: Stool 0 / 0 Urine Amount (Catheter) 1800 / 1800 1600 / 1600 Indwelling Urethral Catheter 1800 / 1800 1600 / 1600 Other: Date of Last Bowel Movement 02/16/18 02/17/18 # Bowel Movements 0 # Incontinent Bowel Movements 1 1 Narrative: GENERAL:on vent support male patient, UNRESPONSIVE. . SKIN: Warm and dry. +sacral decub per wound care notes. HEAD: Atraumatic. Normocephalic. EYES: Pupils equal and round. No scleral icterus. No injection or drainage. ENT: No nasal bleeding or discharge. Mucous membranes pink and moist. NECK: Trachea midline. Trach in place. CARDIOVASCULAR: Regular rate and rhythm. RESPIRATORY: No accessory muscle use. Clear to auscultation. Breath sounds equal bilaterally. GASTROINTESTINAL: Abdomen soft, non-tender, nondistended. PEG in place. GENITOURINARY: [place] in place - placed 01/21 MUSCULOSKELETAL: Extremities without clubbing, cyanosis, or edema. NEUROLOGICAL: Awake. Unable to follow commands. Nonverbal. PSYCHIATRIC: Calm. - Urinary Catheter Management Straight Cath placed during this visit: yes Urethral indwelling: Yes Reason for continuing: Acute urinary retention Insertion date: 01/21/18 Insertion time: 08:00 Indwelling Urethral Catheter Cath placed during this visit: yes, but has since been removed by the nurse Urethral indwelling: Yes Reason for continuing: Hourly intake/output Insertion date: 01/21/18 Insertion time: 16:18 Removal date: 01/20/18 Removal time: 15:15 Results - Labs CBC & Chem 7: 02/15/18 04:40 02/16/18 23:45 Laboratory Results - last 24 hr 02/16/18 02/16/18 02/16/18 11:22 17:05 22:21 PT INR Potassium POC Glucose 238 H 182 H 110 Magnesium 02/16/18 02/17/18 02/17/18 23:45 00:07 04:00 PT 30.6 H INR 3.0 Potassium 3.7 POC Glucose 103 Magnesium 1.9 02/17/18 05:49 PT INR Potassium POC Glucose 136 H Magnesium Microbiology 02/11/18 13:40 Blood - Peripheral Aerobic Blood Culture - Final No growth in 5 days 02/11/18 13:40 Blood - Peripheral Anaerobic Blood Culture - Final No growth in 5 days 02/11/18 13:46 Blood - Peripheral Aerobic Blood Culture - Final No growth in 5 days 02/11/18 13:46 Blood - Peripheral Anaerobic Blood Culture - Final No growth in 5 days Assessment and Plan - Plan RESPIRATORY FAILURE S/P cva S/P MS S/P trach ACUTE ASPIRATION plan VENT SUPPORT PULM TOILET ANTIBX PER ID [facility]
[2018-02-17] MEDS: Hydrocortisone Acetate 25 MG Supp RECTAL SCH ×2 (10:17→21:17)
[2018-02-17] MEDS: Collagenase Oint 30 GM Tube TOPICAL SCH (10:18)
[2018-02-17] MEDS: Polyethylene Glycol 3350 17 GM Packet PO SCH (10:18)
[2018-02-17] MEDS: Insulin Detemir Inj 1,000 UNIT/10 ML Vial SQ SCH ×2 (10:18→21:20)
[2018-02-17] MEDS: Famotidine 20 MG Tablet PO SCH ×2 (10:18→21:16)
[2018-02-17] MEDS: Sodium Chloride 0.45 % Inj 1,000 ML IV.CONT SCH (11:39)
--- NOTE | 2018-02-17 13:49 | P.PNCC ---
Subjective Subjective Remarks/Hospital Course: This is a 77-year-old male who initially presented with vision changes and concern for optic neuritis versus temporal arteritis. His initial presentation was on 10/14. His hospital course has been complicated by an NSTEMI with troponins which peaked at 10, ESBL E. coli urinary tract infection, rectal bleeding suspected from bleeding hemorrhoids, acute anemia secondary to blood loss with hemoglobin started around 14 and is trended down to 9.7 this morning. On his initial MRA he was found to have significant atherosclerotic cerebrovascular disease in all vascular territories. Today, he had an acute mental status change and was obtunded. Rapid response and stroke alert was called. His initial NIH stroke scale was 22. Dr. goldstein had conversations with Dr. Ulloa and neurology as well as Dr. sierra with gastroenterology. GI feels comfortable with giving thrombolytics and neurology feels strongly that this patient would benefit from systemic IV TPA therapy. I evaluated the patient on arrival to the intensive care unit. The patient is arousable, but very somnolent. He is Mongolian speaking, and it is very difficult to ascertain whether or not he can follow commands. He does move all extremities spontaneously, although it appears that his left side is weaker than his right. He has noted facial droop. CT head is negative for acute hemorrhage. CTA head neck is significant for the same multivessel cerebrovascular disease that was present on admission. Given the high-risk nature of the stroke as well as his acute anemia this hospitalization, in preparation for giving emergent IV systemic TPA, I placed an arterial line as well as a large-bore peripheral IV so that we could draw serial labs, monitor his hemoglobin, and give blood products if necessary. I also had an additional discussion with the family where I reconfirmed that their goals were aggressive and they fully understood the significant risk of life-threatening hemorrhage associated with systemic TPA in a patient with new anemia and suspected GI bleeding. The family expressed understanding of his condition and understanding of the heightened risk of life-threatening bleeding, but still urged that we needed to get TPA. Immediately after giving IV TPA, patient had a tonic clonic seizure (witnessed on EEG) and became obtunded with acute hypoxic and hypercarbic respiratory failure and was emergently intubated (see separate procedure note for details). 11/10: remains intubated. encephalopathy persists. hgb stable s/p TPA. ~350cc bloody OG tube output, but this is slowing down. 11/11: more awake. on SBT. follows commands. 11/12: remains extubated. off vasopressors. no changes in mental status. 11/18/17 CCM Reconsult Note Patient was transferred to ICU today after a Halicat was called for AMS, hypoxia , high fever. Apparently patient was lethargic since a.m. in the last hour had been unresponsive and hence Halicat was called. Patient had a fever of 101.4 in a.m., T-max is 101.6. I immediately evaluated the patient in the ICU. Patient is completely unresponsive, oxygen saturation 87% on 4 L nasal cannula. Hypopneic. No response to deep pain. Patient was confirmed to be a full code and I proceeded with endotracheal intubation place him on mechanical ventilation as patient was not protecting airway. More history was obtained from discussion with ID Dr. Jalloh. She indicated patient had been increasingly lethargic with fever and also had urinary retention.She has discontinued Ertapenem, and started on meropenem, vancomycin and micafungin. Cultures have been sent and are pending now. Source of sepsis appears to be aspiration pneumonia versus UTI. Repeat UA and panculture pending at this time. Patient was borderline hypotensive prior to intubation and I have started on Levophed to avoid hypotension post intubation. Receiving 1 L normal saline bolus now, give additional fluid bolus if patient requires continued Levophed will place central line 11/19: remains intubated. holding aggrenox for possible thoracentesis today, but family hesitant to consent with concerns over bleeding risk. Cr remains elevated. discussion with Dr. Bernal, unlikely to benefit currently from draining effusion, so at his recommendation, will proceed with attempted weaning from mechanical ventilation and treat effusion conservatively. 11/20: Overnight /early this a.m. ,the patient was noted to have large amount of rectal bleeding. Aggrenox held since 11/18, 2/2 reintubation. Type and screen ordered. Serial H&H currently be performed. Hemodynamically stable. GI has been reconsulted. Protonix previously given PRN, will schedule BID. Patient was reintubated emergently 11/18, plan for continue CPAP trials. Tube feedings until evaluation by GI. ASA placed on hold , in the setting of GI bleeding. 11/21: EGD and colonoscopy performed yesterday. Patient was noted to be constipated ,disimpacted per GI. Patient noted to have hemorrhoids which was clipped. No further bleeding throughout the night. Chest x-ray showed improvement. CPAP trials initiated this a.m.. ASA 81 mg resumed. 11/22: Patient tolerated CPAP trials approximately 13 hours yesterday. Initiation of tube feeds per GI yesterday, no residuals. This am , family concerned patient not responsive. CT brain , ammonia level and EEG pending. Neurology has been reconsulted. Upon my entering the room, this afternoon, the patient was awake, tracking and squeezing my hand upon commands, with right hand. The patient received 1 u PRBC for Hgb 7.2. Post transfusion CBC pending. Plan for quantification of pleural fluid for possible thoracentesis in a.m.. 11/23: No acute events overnight. Patient remains off all sedation. Noted spontaneous eye opening, tracking following commands squeezing hands right greater than left. Neurology following plan for MRI this a.m., repeat EEG pending. Hemoglobin stable this a.m.. Chest x-ray slight improvement, plan for quantification via ultrasound of pleural effusions for possible thoracentesis today. 3 failed attempts at CPAP trials yesterday. 1548-MRI resulted findings consistent of small areas of acute cortical infarct, new since 11/09/2017. I contacted neurology, Dr. Geronimo informed of results. After Dr. Palma's review of imaging and records, it was determined most likely cardioembolic since is affecting both sides and failure with aspirin and Persantine. Ischemic stroke heparin protocol initiated. Careful review secondary to patient history of GI bleed 11/20, thought to be emanating from hemorrhoid ,however due to poor suboptimal prep, they unable to have optimal visualization per Dr. Jones. 11/24: Late entry note. Patient seen and evaluated 614. No acute events overnight. Patient continues on heparin infusion no active signs of bleeding. PTT within therapeutic range. The patient is less responsive this a.m., spontaneous eye opening, not following my commands. Not moving his extremities spontaneously for me as previously performed yesterday. tube feeds reinitiated. Chest x-ray showed further improvement in aeration of lungs the patient continues on FiO2 of 0.35. Plan for CPAP trials today. 11/25: No acute events overnight. Neurological status unchanged. Spontaneous eye opening patient continues not following any commands. Dr. Geronimo at bedside evaluating patient, no change. Patient tolerated CPAP trials approximately 12 hours yesterday. Tolerating tube feeds. Chest x-ray remains unchanged from yesterday. Hemoccult stool negative. Heparin infusion continued. family at bedside. 11/26: Late entry note. Patient seen at 1240pm. Last night the patient was noted to be continuously hyperglycemic. Levemir added to medication regimen 10 mg/day hemoglobin dropped 2 g/dL in 2 days hemoglobin now 7.7, patient to be transfused 1 unit packed red blood. No obvious signs of bleeding Hemoccult was negative. Patient continues on heparin infusion, patient may require tracheostomy and PEG in the near future . Plan to transition to p.o. anticoagulation post procedures. Neurologically the status is unchanged the patient is opens eyes spontaneously no movement of extremities upon my evaluation. Continued CPAP trials currently greater than 6 hours. 11/27: At 1000am, the patient was noted to have melena, approximated at 150 cc per RN evaluation. Heparin infusion discontinued/placed on hold at 10 AM. Stool for Hemoccult blood sent, GI was contacted and informed of the above events. Stat CT of the abdomen and pelvis with p.o. contrast ordered, results pending. Patient previously had been tolerating trickle feeds at 10 cc an hour with no residuals, after initiation of Reglan 5 mg every 8 hours yesterday. Neurologically the patient status is unchanged. Patient does have spontaneous eye opening but does not follow my commands and does not move extremities. Patient's daughter is at bedside, discussed the above events at which she was present for, she is requesting a repeat colonoscopy. I informed her that a CT of the abdomen and pelvis will be obtained, serial hemoglobin will be evaluated and if needed transfusion will be provided and gastroenterology has been contacted and will determine further management if an invasive procedure is required. Hemoglobin continues to be monitored serially, results pending for 10 AM. The patient received 1 unit packed red blood cells, and current hemoglobin trended overnight 8.9 to 8.2 this a.m., posttransfusion. 11/28: hgb continues to decline despite being off heparin. no additional GI interventions are available at this time. clearly the patient has failed anticoagulation with 2 life-threatening bleeding episodes. Although it is clear he may have additional strokes off anticoagulation, we have clear evidence that we are hurting his overall clinical care with his anticoagulation. I explained this at length to the daughter and medical decision maker. however, she insists that she would rather see him of bleeding rather than have any more strokes , and insists that "we can always keep giving him blood". I explained that blood is not without risk, and there is significant risk to anticoagulation, but she is insistent that he be given anticoagulation to prevent further strokes and she has weighed the risks and benefits after having full informed consent, insists upon us restarting the heparin drip. At her insistence, I have restarted it. In addition, I have counseled her that I do not think he will survive this hospitalization, and he will require tracheostomy for further aggressive care. She states that we are not at "day 14" on the vent, and it is not time for a tracheostomy yet. This is a second intubation and we are certainly at risk for complications from endotracheal intubation, and tracheostomy would be the most appropriate next step for this patient, but the family is refusing until WednesdayDecember 01. 11/29 Patient remains intubated, on no sedation. Afebrile. 11/30 No events overnight. Patient tolerated CPAP for most of day yesterday. Remains on Heparin drip. 12/01 Patient remains intubated tolerated CPAP for several hrs yesterday. s/p CT guided right thoracentesis with removal 500ml pleural fluid. On Heparin drip 12/02 No events overnight. Heparin drip stopped this morning for trach and PEG placement today. Afebrile. 12/03 Patient s/p trach and PEG tube placement yesterday. Had bleeding from around trach and PEG tube insertion sites Heparin drip held last night. s/p transfusion 1u PRBC yesterday Hgb 8.0 this morning. Afebrile. On no sedation. 12/04: Continues to have bruising from PEG tube insertion site. Trach site appears to have stopped. Hemoglobin 7 the same receiving 1 unit FFP and 1 PRBCs. Tube feeds of been resumed. On no sedation. 12/05: Afebrile. No further bleeding noted from the tracheostomy site. Overnight reported by the RN that the PEG tube site continues to bleed Surgicel was placed around the opening, small amount of bleeding still noted. Patient hemoglobin remained 7 patient to be transfused 1 unit PRBC's fibrinogen level pending INR within normal limits. 12/06 Patient s/p transfusion 2u PRBC yesterday Hgb 9.5 this morning from 7.2 last night. No bleeding from trach site however patient still having rectal bleeding. 12/07 No events overnight. On ventilator via trach Hgb 9.8 this morning for colonoscopy today. 12/08: seen and examined around 06:30am. no significant change in mental status. hgb 8.9 this AM. remains on heparin drip at [facility]. 12/09: no improvements or changes. very deconditioned. garcia has remained in without clear indication. had 1 episode of urinary retention, but this is a clear source of infection and an additional serious infection would certainly be life-threatening. 12/10 Patient is now on TP's with 28% FIO2, Afebrile. On Heparin drip. 12/11: remains on t-piece x > 48h. no change in neuro exam. remains on heparin drip with stable hgb 7.8. Subjective: 12/12: asked to see patient again today by the hospitalist service for change in condition. I have evaluated the patient and he does not clinically appear any different than yesterday. HR actually lower than yesterday. bladder scan suggestive of 600cc retention. patient has had urinary retention before, although has also had multiple hospital acquired urinary tract infections. risk/ benefit at this time would be in favor of serial q6h straight catheterizations. remains hemodynamically stable. some emesis today and evidence of ileus. 12/31 Reconsult for resp distress Patient is 77 yo with chronic resp failure, trach/PEG tube placement, CVA transferred to [facility] for resp distress trach changes to #6 and patient was placed on mechanical ventilation. CXR showed increasing consolidation patient was given Lasix prior to arrival to [facility]. 01/01 Patient is on ventilator via trach. Afebrile. 01/02 No events overnight. On no drips, Afebrile, CPAP 15/5 with 35% FIO2 overnight. 01/03 Remained on TP breathing comfortably. CXR shows bilateral effusions. Will get CT chest. Give single dose of lasix. ID consulted and following, no fever in 24 hours 01/04: Remains unresponsive, fever trending down. Sputum culture now growing Klebsiella and ESBL E. coli. Urine culture and wound culture also growing ESBL E. coli. Chest tube placed on the right side yesterday with 1.35 L output since placement. Urine output excellent with single dose of Lasix 2.5 L in 24 hours. No fever in 24 hours. Repeat 40 mg IV Lasix 1 [facility] RECONSULT NOTE 02/08/18: Mr. Glynn is a 77-year-old man who is known to our service. In short, he was initially admitted with possible optic neuritis versus temporal arteritis in September. Care complicated by an STEMI, multiple infections with healthcare associated pneumonia UTIs. During hospitalization he also received TPA for Stroke, MRI of the brain performed on 12/24/2017, showed infarction involving the left corpus callosum and splenium of the corpus callosum. The patient had undergone tracheostomy placement. And since last month had been on hospitalist service and off ventilator. He is currently receiving Levaquin for stenotrophomonas infection, Diflucan for candidemia. Apparently patient was noted to aspirate earlier this a.m. At 7250 AM patient was found unresponsive pulseless rhythm asystole and CPR was started. Total 3 amp of epinephrine given. Patient had a cuff less trach with evidence of aspiration, large amount of tube feeds aspirated from tracheostomy tube. This was exchanged for a 8.0 Shiley tracheostomy cuffed. With improved bag and mask ventilation and after 3 epinephrine, 1 amp of calcium, 1 amp of bicarb, patient regained ROSC SUBJ 02/09/18: Remains very critical not on any sedation he is unresponsive eyes are spontaneously open but no tracking. Very slight withdrawal to pain on the upper extremities. CT of the head unremarkable. Currently borderline hypotensive off pressors. Received 2 units of PRBC for hemoglobin 6.6 yesterday. Prognosis remained poor. Neurology consulted per family request 02/10/18: Remains critical with no improvement in neuro status or clinical status. Eyes are spontaneously open but no response to threat no tracking. Neurology consulted MRI and EEG pending at this time. Currently remains on Levophed at 1 mcg/min. Chest x-ray with bilateral infiltrates sputum culture growing GNR. Na 155. Free water flushes and half-normal saline rate increased. 02/11: Remains unresponsive off all sedation. Osmolality slowly returning to baseline. Antibiotics appropriate for organism. Tube feeds tolerated at 50 mL' s per hour. Unable to wean from mechanical ventilation. 02/12: Osmolality slowly returning to baseline. Tube feeds now tolerated at 60 mL's per hour. Unable to wean from mechanical ventilation due to fatigue. 02/13: Placed on spontaneous breathing trial this morning but required 18 of pressure support to maintain an adequate minute volume. Will work from this point and attempt to wean pressure support over the next many days. Will place back on mechanical rate nightly. Anticoagulation is been particularly cumbersome and made more difficult by Diflucan. Will restart Coumadin again this morning as INR is declined to 2.2 02/14: Remains very weak. Essentially unresponsive. Tolerates brief periods of spontaneous breathing trial blood pressure support must be markedly elevated to the 1820 range. State of hydration gradually improving as osmolality declines and serum creatinine improves. Will continue hypotonic solutions IV. 02/15: Remains unresponsive. Continues to fail spontaneous breathing trials due to lack of respiratory effort. Suffers from tachypnea with an efficient small tidal volumes regardless of the amount of pressure support. 02/16: Onset of copious watery diarrhea is contaminating buttock wounds. We will insert a dignity shield system for fecal management. Remains unresponsive to noxious stimulation. He does have a weak cough reflex. 02/17: Patient is weaker on attempts at spontaneous breathing trials today. Patient remains unresponsive. Only reaction is a weak cough to suctioning. Objective Vital Signs / I&O: Vital Signs 02/16/18 14:00 02/16/18 15:42 02/16/18 16:00 Temperature 98.1 F Pulse Rate 86 84 Respiratory Rate 20 23 Blood Pressure 107/56 L Pulse Oximetry 98 98 02/16/18 18:00 02/16/18 20:00 02/16/18 21:05 Temperature 98.1 F Pulse Rate 84 88 Respiratory Rate 21 23 Blood Pressure 114/62 Pulse Oximetry 97 97 02/16/18 22:00 02/16/18 23:42 02/17/18 00:00 Temperature 98.3 F Pulse Rate 96 H 84 Respiratory Rate 23 19 Blood Pressure 113/62 Pulse Oximetry 100 98 02/17/18 02:00 02/17/18 03:21 02/17/18 04:00 Temperature 98.8 F Pulse Rate 84 84 Respiratory Rate 24 20 Blood Pressure 104/59 L Pulse Oximetry 99 98 02/17/18 06:00 02/17/18 07:35 02/17/18 08:00 Temperature 97.8 F Pulse Rate 86 92 H Respiratory Rate 23 Blood Pressure 124/68 Pulse Oximetry 97 96 02/17/18 10:00 02/17/18 12:00 Temperature 97.5 F L Pulse Rate 94 H 90 Respiratory Rate 23 Blood Pressure 122/66 Pulse Oximetry 98 Intake & Output 02/16/18 02/17/18 02/17/18 18:59 06:59 18:59 Intake Total 640 / 640 1994 Output Total 1800 / 1800 1600 / 1600 Balance -1160 / -1160 395 / 395 Weight 91.3 kg Intake: IV 1200 / 1200 1/2 Normal Saline Inj 1,000 ML 1000 / 1000 @ 20 mls/hr IV.CONT .Q24H EDE Rx#:[id number] Flexbumin 25% Inj 100 ML @ 200 100 / 100 mls/hr IV.SIG STAT ONE Rx#: [id number] Rocephin Inj 2,000 MG In NS Inj 100 / 100 100 ML @ 200 mls/hr IV.SIG Q24H EDE Rx#:[id number] Oral 0 / 0 Tube Feeding 240 / 240 475 / 475 Tube Irrigant 400 / 400 120 / 120 Water Bolus Amount 200 / 200 Output: Stool 0 / 0 Urine Amount (Catheter) 1800 / 1800 1600 / 1600 Indwelling Urethral Catheter 1800 / 1800 1600 / 1600 Other: Date of Last Bowel Movement 02/16/18 02/17/18 02/17/18 # Bowel Movements 0 # Incontinent Bowel Movements 1 1 Result Diagrams: 02/15/18 04:40 02/16/18 23:45 Objective Remarks: GENERAL: Patient is 77 yo encephalopathic, unresponsive on the vent. Eyes are closed. SKIN: Warm and dry. Stage IV sacral decubitus, surrounding buttocks excoriation. HEAD: Normocephalic. Tongue dry. EYES: No scleral icterus. No injection. Pupils equal sluggish reaction to light. NECK: Cuffed tracheostomy tube in place. Moderate secretions persist. CARDIOVASCULAR: S1-S2 normal no murmurs. No JVD. RESPIRATORY: Breath sounds equal bilaterally. Persistent scattered rhonchi GASTROINTESTINAL: Abdomen soft. +PEG tube. tube feeds at 60 ml per hour MUSCULOSKELETAL: No cyanosis, or edema. NEURO: Eyes are closed. No tracking no response to voice or visual threat. Unresponsive to stimulation in all 4 limbs Assessment and Plan - Assessment and Plan Plan: Assessment: Asystole/Cardiac arrest Worsening encephalopathy most likely anoxia contributing Aspiration pneumonia Acute on chronic hypoxemic and hypercapnic resp failure Combined shock, septic and cardiogenic Healthcare associated pneumonia, stenotrophomonas Candidemia UTI with ESBL E. coli Hyponatremia CVA Anemia requiring transfusion Sacral decubitus ulcer s/p NSTEMI Optic neuritis Status post tracheostomy and PEG tube placement Plan: Impression: Neuro -Acute worsening of encephalopathy secondary to systolic cardiac arrest, anoxia -CT head 02/08/[address] Pereira reconsulted per family request -MRI EEG today, pending -History of L ENID infarct. Status post systemic TPA on November 09 -On warfarin INR 3.9, put on hold, pharmacy dosing -Neuropsychology has followed. Continue Ritalin -Optic neuritis. Status post treatment with IV hydrocortisone -Remains unresponsive. CV: -Asystole/cardiac arrest seems secondary to hypoxia and hypercapnia from severe aspiration -Levophed to keep map above 65 -s/p IV fluid normal saline 2 L bolus, 2U PRBC -Increase half-normal saline to 150 ml per hour due to hypernatremia, increase free water flushes to 300 mL every 6 -Continue Coumadin, on hold now due to the INR 3.9 -Echo 10/19: LV systolic function is moderately reduced, EF 40-45%. Cardiology has followed Dr. Betty Hammond 2mg daily and Coreg 3.125mg BID on hold due to hypotension. On Lipitor 80mg qhs Pulm: -Cardiac arrest seems to be secondary to respiratory arrest. Evidence of aspiration at the time of arrest -Cuff less tracheostomy tube removed and new Shiley 8 cuffed tracheostomy placed 02/08/18 -PRVC/AC ventilation. DuoNeb every 6 hours scheduled and as needed -Failed CPAP due to apnea -ICU vent bundle. Pulm toilet, trach care. -GNR in sputum culture, On Levaquin for stenotrophomonas, Diflucan for candidemia, meropenem for previous ESBL E Coli HCAP -Antibiotic and antifungal coverage remains appropriate. GI -Currently tube feeds at 10 mL/h, advance as tolerated -On Pepcid 10mg BID -Free water flushes 300 mils every 6 hours -Having BMs -Tube feeds at 60 mL's per hour 02/12. -Tube feeds tolerated with acceptable gastric residual however profuse diarrhea has started. : -Monitor renal function, electrolytes replacement per protocol -Increase half-normal saline to 150 ml per hour due to hypernatremia, increase free water flushes to 300 mL every 6 ID -Patient was receiving Levaquin for stenotrophomonas, Diflucan for candidemia -Added meropenem 02/08/18 for previous ESBL E. coli HCAP -Previous UTI with ESBL E. coli, Previous healthcare associated pneumonia with Klebsiella and ESBL E. coli -F/U blood and sputum culture and urine culture. GNR in sputum 02/08 -ID Dr. Jalloh following Skin -Sacral wound-Seen by Plastic surgery; debridement declined per patient's family -Wound care is following- apply dressings per wound management recommendations Heme: -Monitor hemoglobin closely. Status post 2 units PRBC on 02/08/2018 -Previous GI bleed; Status post EGD colonoscopy. GI has signed off, patient with healed rectal ulcers and hemorrhoids. -INR therapeutic -If recurrent anemia will reconsult GI Endo -On SSI. Levemir for glycemic control, increasing dosage. GI prophylaxis- on Pepcid DVT prophylaxis- On Coumadin hold due to INR 3.9 Overall impression: Patient remains critically ill after aspiration with hypoxemic and hypercarbic respiratory failure leading to asystolic cardiac arrest. Ten minutes of CPR with return of spontaneous circulation after aggressive resuscitation following CPR, patient remains hypoxemic and encephalopathy. Remains unresponsive, weak respiratory effort is ineffective, unable to begin weaning from ventilator. Prognosis remains poor.
--- NOTE | 2018-02-17 16:04 | P.PNWCN ---
Wound Care Nurse Consult Description: Patient seen earlier with Doctor Upton for follow up of wound to sacrum Recommendation: Please follow written orders from Doctor Upton Additional information: Patient was seen today by short story writer and for follow up wound management of sacral wound. Wound/Pressure Injury - Patient Status Premedicated for Pain Prior to Dressing Change: No - Wound Right Lower Leg Wound Staging: Unstageable Wound Assessment: Ongoing Wound Type: Pressure Injury Is This a Chronic Wound: Yes Requested from Provider a Wound Care Consult: No (Radames VELOZ,[facility] seen 02/17) Length: 4 Width: 3 Depth: 0 (slough) Wound Bed Appearance: [place], Necrotic, Peeling Skin, Red, Yellow Wound Bed Appearance: Wound bed presents with ~60% yellow adherent slough and ~40% pink tissue. Wound bed is moist with scant active sanguinous drainage. Surrounding Tissue Appearance: Blanched/Dull Surrounding Tissue Temperature: Warm Drainage Description: Blue/Green Drainage Amount: Minimal Drainage Odor: Foul Odor Dressing Status: Changed Cleansing Solution: Saline Topical: Enzymatic Debridement Ointment Wound Packing Type: Gauze Roll Primary Dressing: Maxorb II Cover Dressing: Primapore Tape Type: Paper Wound Dressing Change Date: 02/16/18 Wound Margin Description: Well defined and open Right Ankle Length: 2 Width: 2 Depth: 0 (slough) Wound Bed Appearance: Wound bed presents with ~80% yellow dry adherent slough and ~20% pink tissue Surrounding Tissue Appearance: Erythema Surrounding Tissue Temperature: Cool Drainage Description: Wright Drainage Amount: Minimal Drainage Odor: Slight Odor Dressing Status: Dry & Intact, Changed Cleansing Solution: Saline Topical: Medicated Ointment Wound Packing Type: Gauze Roll Primary Dressing: Gauze Roll/Wrap Cover Dressing: Gauze Roll/Wrap Tape Type: Cloth Wound Dressing Change Date: 02/11/18 Right Heel Wound Assessment: Ongoing Length: 1 Width: 1 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 Wound Type: Traumatic Wound Wound Bed Appearance: Pale, [place], Red Surrounding Tissue Appearance: Blanched/Dull Drainage Description: Serous Drainage Amount: None Drainage Odor: No Odor Cleansing Solution: Saline Topical: calazime Wound Dressing Change Date: 02/17/18 Right Gluteal Cleft Wound Staging: Stage II Wound Assessment: Ongoing Wound Type: Pressure Injury Length: 2 Width: 2 Wound Bed Appearance: Pale, [place] Surrounding Tissue Appearance: Blanched/Dull Drainage Description: Sanguinous Drainage Amount: Scant Drainage Odor: No Odor Cleansing Solution: Saline Topical: Sensicare/Calzamine Primary Dressing: Open to air Sacrum Wound Staging: Unstageable Wound Assessment: Ongoing Wound Type: Pressure Injury Is This a Chronic Wound: Yes Requested from Provider a Wound Care Consult: No ( seen 02/17) Wound Bed Appearance: Necrotic, Red, White, Yellow Wound Bed Appearance: Wound bed presents with an island of ~70% yellow slough, ~30% red tissue Surrounding Tissue Appearance: Bright Red, Erythema Surrounding Tissue Temperature: Warm Drainage Description: Serosanguinous Drainage Amount: Minimal Drainage Odor: No Odor Dressing Status: Changed Cleansing Solution: Saline Topical: Enzymatic Debridement Ointment Wound Packing Type: Gauze Pads Primary Dressing: Gauze Pad Cover Dressing: Absorbant Pad Tape Type: Paper Wound Dressing Change Date: 02/14/18 Wound Margin Description: Wound margins are well defined Scrotum Wound Assessment: Ongoing Wound Type: Maceration Is This a Chronic Wound: No Requested from Provider a Wound Care Consult: No Wound Bed Appearance: Edematous Surrounding Tissue Appearance: [place], Shiny, Taut Surrounding Tissue Temperature: Warm Drainage Description: Serous Drainage Amount: None Drainage Odor: No Odor Dressing Status: Open to Air Cleansing Solution: Saline Topical: Sensicare/Calzamine Support Dressing: Sling Wound Dressing Change Date: 02/09/18 Right Calf Wound Assessment: Ongoing Wound Type: Pressure Injury Length: 2 Width: 2 Wound Bed Appearance: Necrotic, [place], Yellow Surrounding Tissue Appearance: [place] Surrounding Tissue Temperature: Warm Drainage Description: Purulent Drainage Amount: None Drainage Odor: Slight Odor Dressing Status: Dry & Intact Cleansing Solution: Saline Topical: Enzymatic Debridement Ointment Cover Dressing: Gauze Pads Left Outer Knee Wound Assessment: Ongoing Wound Type: Pressure Injury Length: 4 Width: 2 Drainage Amount: None Dressing Status: Open to Air Cleansing Solution: Saline Topical: calazime - Additional Information 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 Patient was turned to L side with the assistance of RN Yoel cody.Removed Bordered gauze gauze pads from Sacral wound . Wound bed presents initially with an island of ~80% yellow slough that is now loosely adherent with ~20% red tissue. Wound was cleansed with normal saline. Applied yon thick coverage of Santyl ointment to wound bed with saline moistened gauze pads that were loosely packed in wound bed. Skin barrier film was applied to periwound before covering wound with bordered gauze.Patient was positioned off bottom with pillow in place for support. Incision - Patient Status Premedicated for Pain Prior to Dressing Change: No
[2018-02-18] MEDS: Insulin NovoLIN Regular Correctional Sugar Inj SQ SCH ×4 (00:22→19:55)
[2018-02-18 05:30] LABS: INR 3.5 Ratio
[2018-02-18] MEDS: Famotidine 20 MG Tablet PO SCH ×2 (08:36→20:50)
[2018-02-18] MEDS: Hydrocortisone Acetate 25 MG Supp RECTAL SCH ×2 (08:36→20:50)
[2018-02-18] MEDS: Insulin Detemir Inj 1,000 UNIT/10 ML Vial SQ SCH ×2 (08:37→20:50)
[2018-02-18] MEDS: Collagenase Oint 30 GM Tube TOPICAL SCH (08:37)
[2018-02-18] MEDS: Polyethylene Glycol 3350 17 GM Packet PO SCH (08:37)
--- NOTE | 2018-02-18 08:49 | P.PNCC ---
Subjective Subjective Remarks/Hospital Course: This is a 77-year-old male who initially presented with vision changes and concern for optic neuritis versus temporal arteritis. His initial presentation was on 10/14. His hospital course has been complicated by an NSTEMI with troponins which peaked at 10, ESBL E. coli urinary tract infection, rectal bleeding suspected from bleeding hemorrhoids, acute anemia secondary to blood loss with hemoglobin started around 14 and is trended down to 9.7 this morning. On his initial MRA he was found to have significant atherosclerotic cerebrovascular disease in all vascular territories. Today, he had an acute mental status change and was obtunded. Rapid response and stroke alert was called. His initial NIH stroke scale was 22. Dr. goldstein had conversations with Dr. Ulloa and neurology as well as Dr. seirra with gastroenterology. GI feels comfortable with giving thrombolytics and neurology feels strongly that this patient would benefit from systemic IV TPA therapy. I evaluated the patient on arrival to the intensive care unit. The patient is arousable, but very somnolent. He is Syriac speaking, and it is very difficult to ascertain whether or not he can follow commands. He does move all extremities spontaneously, although it appears that his left side is weaker than his right. He has noted facial droop. CT head is negative for acute hemorrhage. CTA head neck is significant for the same multivessel cerebrovascular disease that was present on admission. Given the high-risk nature of the stroke as well as his acute anemia this hospitalization, in preparation for giving emergent IV systemic TPA, I placed an arterial line as well as a large-bore peripheral IV so that we could draw serial labs, monitor his hemoglobin, and give blood products if necessary. I also had an additional discussion with the family where I reconfirmed that their goals were aggressive and they fully understood the significant risk of life-threatening hemorrhage associated with systemic TPA in a patient with new anemia and suspected GI bleeding. The family expressed understanding of his condition and understanding of the heightened risk of life-threatening bleeding, but still urged that we needed to get TPA. Immediately after giving IV TPA, patient had a tonic clonic seizure (witnessed on EEG) and became obtunded with acute hypoxic and hypercarbic respiratory failure and was emergently intubated (see separate procedure note for details). 11/10: remains intubated. encephalopathy persists. hgb stable s/p TPA. ~350cc bloody OG tube output, but this is slowing down. 11/11: more awake. on SBT. follows commands. 11/12: remains extubated. off vasopressors. no changes in mental status. 11/18/17 CCM Reconsult Note Patient was transferred to ICU today after a Halicat was called for AMS, hypoxia , high fever. Apparently patient was lethargic since a.m. in the last hour had been unresponsive and hence Halicat was called. Patient had a fever of 101.4 in a.m., T-max is 101.6. I immediately evaluated the patient in the ICU. Patient is completely unresponsive, oxygen saturation 87% on 4 L nasal cannula. Hypopneic. No response to deep pain. Patient was confirmed to be a full code and I proceeded with endotracheal intubation place him on mechanical ventilation as patient was not protecting airway. More history was obtained from discussion with ID Dr. Jalloh. She indicated patient had been increasingly lethargic with fever and also had urinary retention.She has discontinued Ertapenem, and started on meropenem, vancomycin and micafungin. Cultures have been sent and are pending now. Source of sepsis appears to be aspiration pneumonia versus UTI. Repeat UA and panculture pending at this time. Patient was borderline hypotensive prior to intubation and I have started on Levophed to avoid hypotension post intubation. Receiving 1 L normal saline bolus now, give additional fluid bolus if patient requires continued Levophed will place central line 11/19: remains intubated. holding aggrenox for possible thoracentesis today, but family hesitant to consent with concerns over bleeding risk. Cr remains elevated. discussion with Dr. Bernal, unlikely to benefit currently from draining effusion, so at his recommendation, will proceed with attempted weaning from mechanical ventilation and treat effusion conservatively. 11/20: Overnight /early this a.m. ,the patient was noted to have large amount of rectal bleeding. Aggrenox held since 11/18, 2/2 reintubation. Type and screen ordered. Serial H&H currently be performed. Hemodynamically stable. GI has been reconsulted. Protonix previously given PRN, will schedule BID. Patient was reintubated emergently 11/18, plan for continue CPAP trials. Tube feedings until evaluation by GI. ASA placed on hold , in the setting of GI bleeding. 11/21: EGD and colonoscopy performed yesterday. Patient was noted to be constipated ,disimpacted per GI. Patient noted to have hemorrhoids which was clipped. No further bleeding throughout the night. Chest x-ray showed improvement. CPAP trials initiated this a.m.. ASA 81 mg resumed. 11/22: Patient tolerated CPAP trials approximately 13 hours yesterday. Initiation of tube feeds per GI yesterday, no residuals. This am , family concerned patient not responsive. CT brain , ammonia level and EEG pending. Neurology has been reconsulted. Upon my entering the room, this afternoon, the patient was awake, tracking and squeezing my hand upon commands, with right hand. The patient received 1 u PRBC for Hgb 7.2. Post transfusion CBC pending. Plan for quantification of pleural fluid for possible thoracentesis in a.m.. 11/23: No acute events overnight. Patient remains off all sedation. Noted spontaneous eye opening, tracking following commands squeezing hands right greater than left. Neurology following plan for MRI this a.m., repeat EEG pending. Hemoglobin stable this a.m.. Chest x-ray slight improvement, plan for quantification via ultrasound of pleural effusions for possible thoracentesis today. 3 failed attempts at CPAP trials yesterday. 1548-MRI resulted findings consistent of small areas of acute cortical infarct, new since 11/09/2017. I contacted neurology, Dr. Geronimo informed of results. After Dr. Palma's review of imaging and records, it was determined most likely cardioembolic since is affecting both sides and failure with aspirin and Persantine. Ischemic stroke heparin protocol initiated. Careful review secondary to patient history of GI bleed 11/20, thought to be emanating from hemorrhoid ,however due to poor suboptimal prep, they unable to have optimal visualization per Dr. Jones. 11/24: Late entry note. Patient seen and evaluated 614. No acute events overnight. Patient continues on heparin infusion no active signs of bleeding. PTT within therapeutic range. The patient is less responsive this a.m., spontaneous eye opening, not following my commands. Not moving his extremities spontaneously for me as previously performed yesterday. tube feeds reinitiated. Chest x-ray showed further improvement in aeration of lungs the patient continues on FiO2 of 0.35. Plan for CPAP trials today. 11/25: No acute events overnight. Neurological status unchanged. Spontaneous eye opening patient continues not following any commands. Dr. Geronimo at bedside evaluating patient, no change. Patient tolerated CPAP trials approximately 12 hours yesterday. Tolerating tube feeds. Chest x-ray remains unchanged from yesterday. Hemoccult stool negative. Heparin infusion continued. family at bedside. 11/26: Late entry note. Patient seen at 1240pm. Last night the patient was noted to be continuously hyperglycemic. Levemir added to medication regimen 10 mg/day hemoglobin dropped 2 g/dL in 2 days hemoglobin now 7.7, patient to be transfused 1 unit packed red blood. No obvious signs of bleeding Hemoccult was negative. Patient continues on heparin infusion, patient may require tracheostomy and PEG in the near future . Plan to transition to p.o. anticoagulation post procedures. Neurologically the status is unchanged the patient is opens eyes spontaneously no movement of extremities upon my evaluation. Continued CPAP trials currently greater than 6 hours. 11/27: At 1000am, the patient was noted to have melena, approximated at 150 cc per RN evaluation. Heparin infusion discontinued/placed on hold at 10 AM. Stool for Hemoccult blood sent, GI was contacted and informed of the above events. Stat CT of the abdomen and pelvis with p.o. contrast ordered, results pending. Patient previously had been tolerating trickle feeds at 10 cc an hour with no residuals, after initiation of Reglan 5 mg every 8 hours yesterday. Neurologically the patient status is unchanged. Patient does have spontaneous eye opening but does not follow my commands and does not move extremities. Patient's daughter is at bedside, discussed the above events at which she was present for, she is requesting a repeat colonoscopy. I informed her that a CT of the abdomen and pelvis will be obtained, serial hemoglobin will be evaluated and if needed transfusion will be provided and gastroenterology has been contacted and will determine further management if an invasive procedure is required. Hemoglobin continues to be monitored serially, results pending for 10 AM. The patient received 1 unit packed red blood cells, and current hemoglobin trended overnight 8.9 to 8.2 this a.m., posttransfusion. 11/28: hgb continues to decline despite being off heparin. no additional GI interventions are available at this time. clearly the patient has failed anticoagulation with 2 life-threatening bleeding episodes. Although it is clear he may have additional strokes off anticoagulation, we have clear evidence that we are hurting his overall clinical care with his anticoagulation. I explained this at length to the daughter and medical decision maker. however, she insists that she would rather see him of bleeding rather than have any more strokes , and insists that "we can always keep giving him blood". I explained that blood is not without risk, and there is significant risk to anticoagulation, but she is insistent that he be given anticoagulation to prevent further strokes and she has weighed the risks and benefits after having full informed consent, insists upon us restarting the heparin drip. At her insistence, I have restarted it. In addition, I have counseled her that I do not think he will survive this hospitalization, and he will require tracheostomy for further aggressive care. She states that we are not at "day 14" on the vent, and it is not time for a tracheostomy yet. This is a second intubation and we are certainly at risk for complications from endotracheal intubation, and tracheostomy would be the most appropriate next step for this patient, but the family is refusing until WednesdayDecember 01. 11/29 Patient remains intubated, on no sedation. Afebrile. 11/30 No events overnight. Patient tolerated CPAP for most of day yesterday. Remains on Heparin drip. 12/01 Patient remains intubated tolerated CPAP for several hrs yesterday. s/p CT guided right thoracentesis with removal 500ml pleural fluid. On Heparin drip 12/02 No events overnight. Heparin drip stopped this morning for trach and PEG placement today. Afebrile. 12/03 Patient s/p trach and PEG tube placement yesterday. Had bleeding from around trach and PEG tube insertion sites Heparin drip held last night. s/p transfusion 1u PRBC yesterday Hgb 8.0 this morning. Afebrile. On no sedation. 12/04: Continues to have bruising from PEG tube insertion site. Trach site appears to have stopped. Hemoglobin 7 the same receiving 1 unit FFP and 1 PRBCs. Tube feeds of been resumed. On no sedation. 12/05: Afebrile. No further bleeding noted from the tracheostomy site. Overnight reported by the RN that the PEG tube site continues to bleed Surgicel was placed around the opening, small amount of bleeding still noted. Patient hemoglobin remained 7 patient to be transfused 1 unit PRBC's fibrinogen level pending INR within normal limits. 12/06 Patient s/p transfusion 2u PRBC yesterday Hgb 9.5 this morning from 7.2 last night. No bleeding from trach site however patient still having rectal bleeding. 12/07 No events overnight. On ventilator via trach Hgb 9.8 this morning for colonoscopy today. 12/08: seen and examined around 06:30am. no significant change in mental status. hgb 8.9 this AM. [facility] 12/09: no improvements or changes. very deconditioned. garcia has remained in without clear indication. had 1 episode of urinary retention, but this is a clear source of infection and an additional serious infection would certainly be life-threatening. 12/10 Patient is now on TP's with 28% FIO2, Afebrile. On Heparin drip. 12/11: remains on t-piece x > 48h. no change in neuro exam. remains on heparin drip with stable hgb 7.8. Subjective: 12/12: asked to see patient again today by the hospitalist service for change in condition. I have evaluated the patient and he does not clinically appear any different than yesterday. HR actually lower than yesterday. bladder scan suggestive of 600cc retention. patient has had urinary retention before, although has also had multiple hospital acquired urinary tract infections. risk/ benefit at this time would be in favor of serial q6h straight catheterizations. remains hemodynamically stable. some emesis today and evidence of ileus. 12/31 Reconsult for resp distress Patient is 77 yo with chronic resp failure, trach/PEG tube placement, CVA transferred [place] [facility] [place] distress trach changes to #6 and patient was placed on mechanical ventilation. CXR showed increasing consolidation patient was given Lasix prior to arrival to [facility]. 01/01 Patient is on ventilator via trach. Afebrile. 01/02 No events overnight. On no drips, Afebrile, CPAP 15/5 with 35% FIO2 overnight. 01/03 Remained on TP breathing comfortably. CXR shows bilateral effusions. Will get CT chest. Give single dose of lasix. ID consulted and following, no fever in 24 hours 01/04: Remains unresponsive, fever trending down. Sputum culture now growing Klebsiella and ESBL E. coli. Urine culture and wound culture also growing ESBL E. coli. Chest tube placed on the right side yesterday with 1.35 L output since placement. Urine output excellent with single dose of Lasix 2.5 L in 24 hours. No fever in 24 hours. Repeat 40 mg IV Lasix 1 [facility] RECONSULT NOTE 02/08/18: Mr. Glynn is a 77-year-old man who is known to our service. In short, he was initially admitted with possible optic neuritis versus temporal arteritis in September. Care complicated by an STEMI, multiple infections with healthcare associated pneumonia UTIs. During hospitalization he also received TPA for Stroke, MRI of the brain performed on 12/24/2017, showed infarction involving the left corpus callosum and splenium of the corpus callosum. The patient had undergone tracheostomy placement. And since last month had been on hospitalist service and off ventilator. He is currently receiving Levaquin for stenotrophomonas infection, Diflucan for candidemia. Apparently patient was noted to aspirate earlier this a.m. At 7250 AM patient was found unresponsive pulseless rhythm asystole and CPR was started. Total 3 amp of epinephrine given. Patient had a cuff less trach with evidence of aspiration, large amount of tube feeds aspirated from tracheostomy tube. This was exchanged for a 8.0 Shiley tracheostomy cuffed. With improved bag and mask ventilation and after 3 epinephrine, 1 amp of calcium, 1 amp of bicarb, patient regained ROSC SUBJ 02/09/18: Remains very critical not on any sedation he is unresponsive eyes are spontaneously open but no tracking. Very slight withdrawal to pain on the upper extremities. CT of the head unremarkable. Currently borderline hypotensive off pressors. Received 2 units of PRBC for hemoglobin 6.6 yesterday. Prognosis remained poor. Neurology consulted per family request 02/10/18: Remains critical with no improvement in neuro status or clinical status. Eyes are spontaneously open but no response to threat no tracking. Neurology consulted MRI and EEG pending at this time. Currently remains on Levophed at 1 mcg/min. Chest x-ray with bilateral infiltrates sputum culture growing GNR. Na 155. Free water flushes and half-normal saline rate increased. 02/11: Remains unresponsive off all sedation. Osmolality slowly returning to baseline. Antibiotics appropriate for organism. Tube feeds tolerated at 50 mL' s per hour. Unable to wean from mechanical ventilation. 02/12: Osmolality slowly returning to baseline. Tube feeds now tolerated at 60 mL's per hour. Unable to wean from mechanical ventilation due to fatigue. 02/13: Placed on spontaneous breathing trial this morning but required 18 of pressure support to maintain an adequate minute volume. Will work from this point and attempt to wean pressure support over the next many days. Will place back on mechanical rate nightly. Anticoagulation is been particularly cumbersome and made more difficult by Diflucan. Will restart Coumadin again this morning as INR is declined to 2.2 02/14: Remains very weak. Essentially unresponsive. Tolerates brief periods of spontaneous breathing trial blood pressure support must be markedly elevated to the 1820 range. State of hydration gradually improving as osmolality declines and serum creatinine improves. Will continue hypotonic solutions IV. 02/15: Remains unresponsive. Continues to fail spontaneous breathing trials due to lack of respiratory effort. Suffers from tachypnea with an efficient small tidal volumes regardless of the amount of pressure support. 02/16: Onset of copious watery diarrhea is contaminating buttock wounds. We will insert a dignity shield system for fecal management. Remains unresponsive to noxious stimulation. He does have a weak cough reflex. 02/17: Patient is weaker on attempts at spontaneous breathing trials today. Patient remains unresponsive. Only reaction is a weak cough to suctioning. 02/18: Patient continues to do poorly on attempts at spontaneous breathing trials. Urine output is improved with diuresis, will follow renal function closely. Objective Vital Signs / I&O: Vital Signs 02/17/18 10:00 02/17/18 12:00 02/17/18 14:00 Temperature 97.5 F L Pulse Rate 94 H 90 89 Respiratory Rate 23 Blood Pressure 122/66 Pulse Oximetry 97 02/17/18 15:32 02/17/18 16:00 02/17/18 18:00 Temperature 97.5 F L Pulse Rate 87 89 Respiratory Rate 19 Blood Pressure 123/70 Pulse Oximetry 98 95 02/17/18 20:00 02/17/18 20:13 02/17/18 22:00 Temperature 97.6 F Pulse Rate 88 81 Respiratory Rate 16 17 Blood Pressure 143/79 H Pulse Oximetry 100 97 02/18/18 00:00 02/18/18 00:11 02/18/18 02:00 Temperature 97.5 F L Pulse Rate 84 83 Respiratory Rate 22 22 Blood Pressure 103/61 Pulse Oximetry 95 97 02/18/18 04:00 02/18/18 04:41 02/18/18 06:00 Temperature 97.7 F Pulse Rate 77 82 Respiratory Rate 22 24 Blood Pressure 108/65 Pulse Oximetry 99 97 Intake & Output 02/17/18 02/18/18 02/18/18 18:59 06:59 18:59 Intake Total 241 / 241 765 / 765 Output Total 1450 / 1450 1800 / 1800 Balance -1209 / -1209 -1035 / -1035 Weight 91.7 kg Intake: IV 400 / 400 1/2 Normal Saline Inj 1,000 ML 300 / 300 @ 20 mls/hr IV.CONT .Q24H EDE Rx#:[id number] Rocephin Inj 2,000 MG In NS Inj 100 / 100 100 ML @ 200 mls/hr IV.SIG Q24H EDE Rx#:[id number] Tube Feeding 241 / 241 230 / 230 Tube Irrigant 135 / 135 Output: Stool 300 / 300 Urine Amount (Catheter) 1450 / 1450 1500 / 1500 Indwelling Urethral Catheter 1450 / 1450 1500 / 1500 Other: Date of Last Bowel Movement 02/17/18 02/18/18 Result Diagrams: 02/15/18 04:40 02/16/18 23:45 Objective Remarks: GENERAL: Patient is 77 yo encephalopathic, unresponsive on the vent. Eyes are closed. SKIN: Warm and dry. Stage IV sacral decubitus, surrounding buttocks excoriation. HEAD: Normocephalic. Tongue dry. EYES: No scleral icterus. No injection. Pupils equal sluggish reaction to light. NECK: Cuffed tracheostomy tube in place. Moderate secretions persist. CARDIOVASCULAR: S1-S2 normal no murmurs. No JVD. RESPIRATORY: Breath sounds equal bilaterally. Persistent scattered rhonchi GASTROINTESTINAL: Abdomen soft. PEG tube site clean and dry, tube feeds at 60 ml per hour MUSCULOSKELETAL: No cyanosis. Generalized edema. NEURO: Eyes are closed. No tracking no response to voice or visual threat. Unresponsive to stimulation in all 4 limbs Assessment and Plan - Assessment and Plan Plan: Assessment: Asystole/Cardiac arrest Worsening encephalopathy most likely anoxia contributing Aspiration pneumonia Acute on chronic hypoxemic and hypercapnic resp failure Combined shock, septic and cardiogenic Healthcare associated pneumonia, stenotrophomonas Candidemia UTI with ESBL E. coli Hyponatremia CVA Anemia requiring transfusion Sacral decubitus ulcer s/p NSTEMI Optic neuritis Status post tracheostomy and PEG tube placement Plan: Impression: Neuro -Acute worsening of encephalopathy secondary to systolic cardiac arrest, anoxia -CT head 02/08/[address] Pereira reconsulted per family request -MRI EEG today, pending -History of L ENID infarct. Status post systemic TPA on November 09 -On warfarin INR 3.9, put on hold, pharmacy dosing -Neuropsychology has followed. Continue Ritalin -Optic neuritis. Status post treatment with IV hydrocortisone -Remains unresponsive. CV: -Asystole/cardiac arrest seems secondary to hypoxia and hypercapnia from severe aspiration -Levophed to keep map above 65 -s/p IV fluid normal saline 2 L bolus, 2U PRBC -Increase half-normal saline to 150 ml per hour due to hypernatremia, increase free water flushes to 300 mL every 6 -Continue Coumadin, on hold now due to the INR 3.9 -Echo 10/19: LV systolic function is moderately reduced, EF 40-45%. Cardiology has followed Dr. Betty Hammond 2mg daily and Coreg 3.125mg BID on hold due to hypotension. On Lipitor 80mg qhs Pulm: -Cardiac arrest seems to be secondary to respiratory arrest. Evidence of aspiration at the time of arrest -Cuff less tracheostomy tube removed and new Shiley 8 cuffed tracheostomy placed 02/08/18 -PRVC/AC ventilation. DuoNeb every 6 hours scheduled and as needed -Failed CPAP due to apnea -ICU vent bundle. Pulm toilet, trach care. -GNR in sputum culture, On Levaquin for stenotrophomonas, Diflucan for candidemia, meropenem for previous ESBL E Coli HCAP -Antibiotic and antifungal coverage remains appropriate. GI -Currently tube feeds at 10 mL/h, advance as tolerated -On Pepcid 10mg BID -Free water flushes 300 mils every 6 hours -Having BMs -Tube feeds at 60 mL's per hour 02/12. -Tube feeds tolerated with acceptable gastric residual however profuse diarrhea has started. : -Monitor renal function, electrolytes replacement per protocol -Increase half-normal saline to 150 ml per hour due to hypernatremia, increase free water flushes to 300 mL every 6 ID -Patient was receiving Levaquin for stenotrophomonas, Diflucan for candidemia -Added meropenem 02/08/18 for previous ESBL E. coli HCAP -Previous UTI with ESBL E. coli, Previous healthcare associated pneumonia with Klebsiella and ESBL E. coli -F/U blood and sputum culture and urine culture. GNR in sputum 02/08 -ID Dr. Jalloh following Skin -Sacral wound-Seen by Plastic surgery; debridement declined per patient's family -Wound care is following- apply dressings per wound management recommendations Heme: -Monitor hemoglobin closely. Status post 2 units PRBC on 02/08/2018 -Previous GI bleed; Status post EGD colonoscopy. GI has signed off, patient with healed rectal ulcers and hemorrhoids. -INR therapeutic -If recurrent anemia will reconsult GI Endo -On SSI. Levemir for glycemic control, increasing dosage. GI prophylaxis- on Pepcid DVT prophylaxis- On Coumadin hold due to INR 3.9, restarted and adjusted per pharmacy consultation. Overall impression: Patient remains critically ill after aspiration with hypoxemic and hypercarbic respiratory failure leading to asystolic cardiac arrest. Ten minutes of CPR with return of spontaneous circulation after aggressive resuscitation following CPR, patient remains hypoxemic and encephalopathy. Remains unresponsive, weak respiratory effort is ineffective, unable to begin weaning from ventilator. Prognosis remains poor. Code Status: Full code. Discussed Condition With: Bedside nurse.
[2018-02-18] MEDS: Dextrose 50% in Water 50 ML Vial IV.PUSH PRN ×3 (18:35→21:18)
[2018-02-19] MEDS: Insulin NovoLIN Regular Correctional Sugar Inj SQ SCH ×4 (00:55→18:15)
[2018-02-19 05:10] LABS: Baso % (Auto) 0.2 % (0.0-2.0); Eos # (Auto) 0.4 th/mm3 (0.0-0.4); Eos % (Auto) 4.1 % (0.0-4.0); Hematocrit 24.1 % (39.0-51.0); Hemoglobin 7.6 gm/dL (13.0-17.0); Lymph # (Auto) 2.7 th/mm3 (1.0-4.8); Lymph % (Auto) 31.5 % (9.0-44.0); Mean Corpuscular HGB Conc 31.8 % (32.0-36.0); Mean Corpuscular Hemoglobin 26.6 pg (27.0-34.0); Mean Corpuscular Volume 83.6 fL (80.0-100.0); Mean Platelet Volume 9.4 fL (7.0-11.0); Mono # (Auto) 0.7 th/mm3 (0.0-0.9); Mono % (Auto) 7.7 % (0.0-8.0); Neut # (Auto) 4.9 th/mm3 (1.8-7.7); Neut % (Auto) 56.5 % (16.0-70.0); Platelet Count 193 th/mm3 (150-450); Red Blood Count 2.88 mil/mm3 (4.50-5.90); Red Cell Distribution Width 20.2 % (11.6-17.2); White Blood Count 8.7 th/mm3 (4.0-11.0)
[2018-02-19 05:22] LABS: INR 3.3 Ratio; Prothrombin Time 32.8 sec (9.8-11.6)
[2018-02-19 05:47] LABS: Alanine Aminotransferase 41 U/L (12-78); Albumin 1.1 g/dL (3.4-5.0); Alkaline Phosphatase 204 U/L (45-117); Anion Gap 8 meq/L (5-15); Aspartate Aminotransferase 81 U/L (15-37); Blood Urea Nitrogen 78 mg/dL (7-18); Calcium 7.8 mg/dL (8.5-10.1); Carbon Dioxide 29.4 meq/L (21.0-32.0); Chloride 114 meq/L (98-107); Glomerular Filtration Rate 58 mL/min (>89); Glucose,Random 105 mg/dL (74-106); Potassium 3.4 meq/L (3.5-5.1); Sodium 151 meq/L (136-145); Total Protein 6.1 g/dL (6.4-8.2)
[2018-02-19] MEDS: Sodium Chloride 0.45 % Inj 1,000 ML IV.CONT SCH ×2 (06:35→08:56)
[2018-02-19] MEDS: Famotidine 20 MG Tablet PO SCH ×2 (08:56→20:23)
[2018-02-19] MEDS: Polyethylene Glycol 3350 17 GM Packet PO SCH (08:57)
[2018-02-19] MEDS: Insulin Detemir Inj 1,000 UNIT/10 ML Vial SQ SCH (08:57)
[2018-02-19] MEDS: Collagenase Oint 30 GM Tube TOPICAL SCH (08:57)
[2018-02-19] MEDS: Hydrocortisone Acetate 25 MG Supp RECTAL SCH ×2 (08:57→20:23)
--- NOTE | 2018-02-19 09:39 | P.PNCC ---
Subjective Subjective Remarks/Hospital Course: This is a 77-year-old male who initially presented with vision changes and concern for optic neuritis versus temporal arteritis. His initial presentation was on 10/14. His hospital course has been complicated by an NSTEMI with troponins which peaked at 10, ESBL E. coli urinary tract infection, rectal bleeding suspected from bleeding hemorrhoids, acute anemia secondary to blood loss with hemoglobin started around 14 and is trended down to 9.7 this morning. On his initial MRA he was found to have significant atherosclerotic cerebrovascular disease in all vascular territories. Today, he had an acute mental status change and was obtunded. Rapid response and stroke alert was called. His initial NIH stroke scale was 22. Dr. goldstein had conversations with Dr. Ulloa and neurology as well as Dr. sierra with gastroenterology. GI feels comfortable with giving thrombolytics and neurology feels strongly that this patient would benefit from systemic IV TPA therapy. I evaluated the patient on arrival to the intensive care unit. The patient is arousable, but very somnolent. He is French speaking, and it is very difficult to ascertain whether or not he can follow commands. He does move all extremities spontaneously, although it appears that his left side is weaker than his right. He has noted facial droop. CT head is negative for acute hemorrhage. CTA head neck is significant for the same multivessel cerebrovascular disease that was present on admission. Given the high-risk nature of the stroke as well as his acute anemia this hospitalization, in preparation for giving emergent IV systemic TPA, I placed an arterial line as well as a large-bore peripheral IV so that we could draw serial labs, monitor his hemoglobin, and give blood products if necessary. I also had an additional discussion with the family where I reconfirmed that their goals were aggressive and they fully understood the significant risk of life-threatening hemorrhage associated with systemic TPA in a patient with new anemia and suspected GI bleeding. The family expressed understanding of his condition and understanding of the heightened risk of life-threatening bleeding, but still urged that we needed to get TPA. Immediately after giving IV TPA, patient had a tonic clonic seizure (witnessed on EEG) and became obtunded with acute hypoxic and hypercarbic respiratory failure and was emergently intubated (see separate procedure note for details). 11/10: remains intubated. encephalopathy persists. hgb stable s/p TPA. ~350cc bloody OG tube output, but this is slowing down. 11/11: more awake. on SBT. follows commands. 11/12: remains extubated. off vasopressors. no changes in mental status. 11/18/17 CCM Reconsult Note Patient was transferred to ICU today after a Halicat was called for AMS, hypoxia , high fever. Apparently patient was lethargic since a.m. in the last hour had been unresponsive and hence Halicat was called. Patient had a fever of 101.4 in a.m., T-max is 101.6. I immediately evaluated the patient in the ICU. Patient is completely unresponsive, oxygen saturation 87% on 4 L nasal cannula. Hypopneic. No response to deep pain. Patient was confirmed to be a full code and I proceeded with endotracheal intubation place him on mechanical ventilation as patient was not protecting airway. More history was obtained from discussion with ID Dr. Jalloh. She indicated patient had been increasingly lethargic with fever and also had urinary retention.She has discontinued Ertapenem, and started on meropenem, vancomycin and micafungin. Cultures have been sent and are pending now. Source of sepsis appears to be aspiration pneumonia versus UTI. Repeat UA and panculture pending at this time. Patient was borderline hypotensive prior to intubation and I have started on Levophed to avoid hypotension post intubation. Receiving 1 L normal saline bolus now, give additional fluid bolus if patient requires continued Levophed will place central line 11/19: remains intubated. holding aggrenox for possible thoracentesis today, but family hesitant to consent with concerns over bleeding risk. Cr remains elevated. discussion with Dr. Bernal, unlikely to benefit currently from draining effusion, so at his recommendation, will proceed with attempted weaning from mechanical ventilation and treat effusion conservatively. 11/20: Overnight /early this a.m. ,the patient was noted to have large amount of rectal bleeding. Aggrenox held since 11/18, 2/2 reintubation. Type and screen ordered. Serial H&H currently be performed. Hemodynamically stable. GI has been reconsulted. Protonix previously given PRN, will schedule BID. Patient was reintubated emergently 11/18, plan for continue CPAP trials. Tube feedings until evaluation by GI. ASA placed on hold , in the setting of GI bleeding. 11/21: EGD and colonoscopy performed yesterday. Patient was noted to be constipated ,disimpacted per GI. Patient noted to have hemorrhoids which was clipped. No further bleeding throughout the night. Chest x-ray showed improvement. CPAP trials initiated this a.m.. ASA 81 mg resumed. 11/22: Patient tolerated CPAP trials approximately 13 hours yesterday. Initiation of tube feeds per GI yesterday, no residuals. This am , family concerned patient not responsive. CT brain , ammonia level and EEG pending. Neurology has been reconsulted. Upon my entering the room, this afternoon, the patient was awake, tracking and squeezing my hand upon commands, with right hand. The patient received 1 u PRBC for Hgb 7.2. Post transfusion CBC pending. Plan for quantification of pleural fluid for possible thoracentesis in a.m.. 11/23: No acute events overnight. Patient remains off all sedation. Noted spontaneous eye opening, tracking following commands squeezing hands right greater than left. Neurology following plan for MRI this a.m., repeat EEG pending. Hemoglobin stable this a.m.. Chest x-ray slight improvement, plan for quantification via ultrasound of pleural effusions for possible thoracentesis today. 3 failed attempts at CPAP trials yesterday. 1548-MRI resulted findings consistent of small areas of acute cortical infarct, new since 11/09/2017. I contacted neurology, Dr. Geronimo informed of results. After Dr. Palma's review of imaging and records, it was determined most likely cardioembolic since is affecting both sides and failure with aspirin and Persantine. Ischemic stroke heparin protocol initiated. Careful review secondary to patient history of GI bleed 11/20, thought to be emanating from hemorrhoid ,however due to poor suboptimal prep, they unable to have optimal visualization per Dr. Jones. 11/24: Late entry note. Patient seen and evaluated 614. No acute events overnight. Patient continues on heparin infusion no active signs of bleeding. PTT within therapeutic range. The patient is less responsive this a.m., spontaneous eye opening, not following my commands. Not moving his extremities spontaneously for me as previously performed yesterday. tube feeds reinitiated. Chest x-ray showed further improvement in aeration of lungs the patient continues on FiO2 of 0.35. Plan for CPAP trials today. 11/25: No acute events overnight. Neurological status unchanged. Spontaneous eye opening patient continues not following any commands. Dr. Geronimo at bedside evaluating patient, no change. Patient tolerated CPAP trials approximately 12 hours yesterday. Tolerating tube feeds. Chest x-ray remains unchanged from yesterday. Hemoccult stool negative. Heparin infusion continued. family at bedside. 11/26: Late entry note. Patient seen at 1240pm. Last night the patient was noted to be continuously hyperglycemic. Levemir added to medication regimen 10 mg/day hemoglobin dropped 2 g/dL in 2 days hemoglobin now 7.7, patient to be transfused 1 unit packed red blood. No obvious signs of bleeding Hemoccult was negative. Patient continues on heparin infusion, patient may require tracheostomy and PEG in the near future . Plan to transition to p.o. anticoagulation post procedures. Neurologically the status is unchanged the patient is opens eyes spontaneously no movement of extremities upon my evaluation. Continued CPAP trials currently greater than 6 hours. 11/27: At 1000am, the patient was noted to have melena, approximated at 150 cc per RN evaluation. Heparin infusion discontinued/placed on hold at 10 AM. Stool for Hemoccult blood sent, GI was contacted and informed of the above events. Stat CT of the abdomen and pelvis with p.o. contrast ordered, results pending. Patient previously had been tolerating trickle feeds at 10 cc an hour with no residuals, after initiation of Reglan 5 mg every 8 hours yesterday. Neurologically the patient status is unchanged. Patient does have spontaneous eye opening but does not follow my commands and does not move extremities. Patient's daughter is at bedside, discussed the above events at which she was present for, she is requesting a repeat colonoscopy. I informed her that a CT of the abdomen and pelvis will be obtained, serial hemoglobin will be evaluated and if needed transfusion will be provided and gastroenterology has been contacted and will determine further management if an invasive procedure is required. Hemoglobin continues to be monitored serially, results pending for 10 AM. The patient received 1 unit packed red blood cells, and current hemoglobin trended overnight 8.9 to 8.2 this a.m., posttransfusion. 11/28: hgb continues to decline despite being off heparin. no additional GI interventions are available at this time. clearly the patient has failed anticoagulation with 2 life-threatening bleeding episodes. Although it is clear he may have additional strokes off anticoagulation, we have clear evidence that we are hurting his overall clinical care with his anticoagulation. I explained this at length to the daughter and medical decision maker. however, she insists that she would rather see him of bleeding rather than have any more strokes , and insists that "we can always keep giving him blood". I explained that blood is not without risk, and there is significant risk to anticoagulation, but she is insistent that he be given anticoagulation to prevent further strokes and she has weighed the risks and benefits after having full informed consent, insists upon us restarting the heparin drip. At her insistence, I have restarted it. In addition, I have counseled her that I do not think he will survive this hospitalization, and he will require tracheostomy for further aggressive care. She states that we are not at "day 14" on the vent, and it is not time for a tracheostomy yet. This is a second intubation and we are certainly at risk for complications from endotracheal intubation, and tracheostomy would be the most appropriate next step for this patient, but the family is refusing until WednesdayDecember 01. 11/29 Patient remains intubated, on no sedation. Afebrile. 11/30 No events overnight. Patient tolerated CPAP for most of day yesterday. Remains on Heparin drip. 12/01 Patient remains intubated tolerated CPAP for several hrs yesterday. s/p CT guided right thoracentesis with removal 500ml pleural fluid. On Heparin drip 12/02 No events overnight. Heparin drip stopped this morning for trach and PEG placement today. Afebrile. 12/03 Patient s/p trach and PEG tube placement yesterday. Had bleeding from around trach and PEG tube insertion sites Heparin drip held last night. s/p transfusion 1u PRBC yesterday Hgb 8.0 this morning. Afebrile. On no sedation. 12/04: Continues to have bruising from PEG tube insertion site. Trach site appears to have stopped. Hemoglobin 7 the same receiving 1 unit FFP and 1 PRBCs. Tube feeds of been resumed. On no sedation. 12/05: Afebrile. No further bleeding noted from the tracheostomy site. Overnight reported by the RN that the PEG tube site continues to bleed Surgicel was placed around the opening, small amount of bleeding still noted. Patient hemoglobin remained 7 patient to be transfused 1 unit PRBC's fibrinogen level pending INR within normal limits. 12/06 Patient s/p transfusion 2u PRBC yesterday Hgb 9.5 this morning from 7.2 last night. No bleeding from trach site however patient still having rectal bleeding. 12/07 No events overnight. On ventilator via trach Hgb 9.8 this morning for colonoscopy today. 12/08: seen and examined around 06:30am. no significant change in mental status. hgb 8.9 this AM. remains on heparin dri[facility]. 12/09: no improvements or changes. very deconditioned. garcia has remained in without clear indication. had 1 episode of urinary retention, but this is a clear source of infection and an additional serious infection would certainly be life-threatening. 12/10 Patient is now on TP's with 28% FIO2, Afebrile. On Heparin drip. 12/11: remains on t-piece x > 48h. no change in neuro exam. remains on heparin drip with stable hgb 7.8. Subjective: 12/12: asked to see patient again today by the hospitalist service for change in condition. I have evaluated the patient and he does not clinically appear any different than yesterday. HR actually lower than yesterday. bladder scan suggestive of 600cc retention. patient has had urinary retention before, although has also had multiple hospital acquired urinary tract infections. risk/ benefit at this time would be in favor of serial q6h straight catheterizations. remains hemodynamically stable. some emesis today and evidence of ileus. 12/31 Reconsult for resp distress Patient is 77 yo with chronic resp failure, trach/PEG tube placement, CV[place] [facility] [place] resp distress trach changes to #6 and patient was placed on mechanical ventilation. CXR showed increasing consolidation patient was given Lasix prior to arrival [place] [facility]. 01/01 Patient is on ventilator via trach. Afebrile. 01/02 No events overnight. On no drips, Afebrile, CPAP 15/5 with 35% FIO2 overnight. 01/03 Remained on TP breathing comfortably. CXR shows bilateral effusions. Will get CT chest. Give single dose of lasix. ID consulted and following, no fever in 24 hours 01/04: Remains unresponsive, fever trending down. Sputum culture now growing Klebsiella and ESBL E. coli. Urine culture and wound culture also growing ESBL E. coli. Chest tube placed on the right side yesterday with 1.35 L output since placement. Urine output excellent with single dose of Lasix 2.5 L in 24 hours. No fever in 24 hours. Repeat 40 mg IV Lasix 1 [facility] RECONSULT NOTE 02/08/18: Mr. Glynn is a 77-year-old man who is known to our service. In short, he was initially admitted with possible optic neuritis versus temporal arteritis in September. Care complicated by an STEMI, multiple infections with healthcare associated pneumonia UTIs. During hospitalization he also received TPA for Stroke, MRI of the brain performed on 12/24/2017, showed infarction involving the left corpus callosum and splenium of the corpus callosum. The patient had undergone tracheostomy placement. And since last month had been on hospitalist service and off ventilator. He is currently receiving Levaquin for stenotrophomonas infection, Diflucan for candidemia. Apparently patient was noted to aspirate earlier this a.m. At 7250 AM patient was found unresponsive pulseless rhythm asystole and CPR was started. Total 3 amp of epinephrine given. Patient had a cuff less trach with evidence of aspiration, large amount of tube feeds aspirated from tracheostomy tube. This was exchanged for a 8.0 Shiley tracheostomy cuffed. With improved bag and mask ventilation and after 3 epinephrine, 1 amp of calcium, 1 amp of bicarb, patient regained ROSC SUBJ 02/09/18: Remains very critical not on any sedation he is unresponsive eyes are spontaneously open but no tracking. Very slight withdrawal to pain on the upper extremities. CT of the head unremarkable. Currently borderline hypotensive off pressors. Received 2 units of PRBC for hemoglobin 6.6 yesterday. Prognosis remained poor. Neurology consulted per family request 02/10/18: Remains critical with no improvement in neuro status or clinical status. Eyes are spontaneously open but no response to threat no tracking. Neurology consulted MRI and EEG pending at this time. Currently remains on Levophed at 1 mcg/min. Chest x-ray with bilateral infiltrates sputum culture growing GNR. Na 155. Free water flushes and half-normal saline rate increased. 02/11: Remains unresponsive off all sedation. Osmolality slowly returning to baseline. Antibiotics appropriate for organism. Tube feeds tolerated at 50 mL' s per hour. Unable to wean from mechanical ventilation. 02/12: Osmolality slowly returning to baseline. Tube feeds now tolerated at 60 mL's per hour. Unable to wean from mechanical ventilation due to fatigue. 02/13: Placed on spontaneous breathing trial this morning but required 18 of pressure support to maintain an adequate minute volume. Will work from this point and attempt to wean pressure support over the next many days. Will place back on mechanical rate nightly. Anticoagulation is been particularly cumbersome and made more difficult by Diflucan. Will restart Coumadin again this morning as INR is declined to 2.2 02/14: Remains very weak. Essentially unresponsive. Tolerates brief periods of spontaneous breathing trial blood pressure support must be markedly elevated to the 1820 range. State of hydration gradually improving as osmolality declines and serum creatinine improves. Will continue hypotonic solutions IV. 02/15: Remains unresponsive. Continues to fail spontaneous breathing trials due to lack of respiratory effort. Suffers from tachypnea with an efficient small tidal volumes regardless of the amount of pressure support. 02/16: Onset of copious watery diarrhea is contaminating buttock wounds. We will insert a dignity shield system for fecal management. Remains unresponsive to noxious stimulation. He does have a weak cough reflex. 02/17: Patient is weaker on attempts at spontaneous breathing trials today. Patient remains unresponsive. Only reaction is a weak cough to suctioning. 02/18: Patient continues to do poorly on attempts at spontaneous breathing trials. Urine output is improved with diuresis, will follow renal function closely. 02/19: Albumin 1.1, further evidence that the patient is deteriorating. Responds to diuretics but prerenal azotemia quickly develops. Objective Vital Signs / I&O: Vital Signs 02/18/18 10:00 02/18/18 12:00 02/18/18 12:17 Temperature 94.1 F L Pulse Rate 84 88 Respiratory Rate 19 18 Blood Pressure 155/79 H Pulse Oximetry 99 96 02/18/18 14:00 02/18/18 16:00 02/18/18 16:13 Temperature 99.7 F H Pulse Rate 86 100 H Respiratory Rate 21 Blood Pressure 118/63 Pulse Oximetry 96 96 02/18/18 18:00 02/18/18 19:53 02/18/18 20:00 Temperature 99.3 F Pulse Rate 122 H 118 H Respiratory Rate 22 Blood Pressure 99/58 L Pulse Oximetry 96 96 02/18/18 21:11 02/18/18 22:00 02/18/18 23:38 Temperature Pulse Rate 115 H 92 H Respiratory Rate 22 20 Blood Pressure Pulse Oximetry 94 L 02/19/18 00:00 02/19/18 02:00 02/19/18 03:27 Temperature 98.2 F Pulse Rate 92 H 90 Respiratory Rate 18 17 Blood Pressure 111/52 L Pulse Oximetry 95 96 02/19/18 04:00 02/19/18 06:00 02/19/18 07:33 Temperature 98.4 F Pulse Rate 86 90 Respiratory Rate 14 21 Blood Pressure 97/52 L Pulse Oximetry 95 99 Intake & Output 02/18/18 02/19/18 02/19/18 18:59 06:59 18:59 Intake Total 501 / 501 1366 / 1366 Output Total 1715 / 1715 1200 / 1200 Balance -1214 / -1214 166 / 166 Weight 91.7 kg Intake: IV 800 / 800 1/2 Normal Saline Inj 1,000 ML 700 / 700 @ 20 mls/hr IV.CONT .Q24H EDE Rx#:[id number] Rocephin Inj 2,000 MG In NS Inj 100 / 100 100 ML @ 200 mls/hr IV.SIG Q24H EDE Rx#:[id number] Oral 0 / 0 Tube Feeding 231 / 231 266 / 266 Tube Irrigant 120 / 120 Water Bolus Amount 150 / 150 300 / 300 Output: Stool 15 / 15 50 / 50 Urine Amount (Catheter) 1700 / 1700 1150 / 1150 Indwelling Urethral Catheter 1700 / 1700 1150 / 1150 Other: Date of Last Bowel Movement 02/18/18 02/18/18 # Bowel Movements 0 Result Diagrams: 02/19/18 04:45 02/19/18 04:45 Objective Remarks: GENERAL: Patient is 77 yo encephalopathic, unresponsive on the vent. Eyes are closed. SKIN: Warm and dry. Stage IV sacral decubitus, surrounding buttocks excoriation. HEAD: Normocephalic. Tongue moist. EYES: No scleral icterus. No injection. Pupils equal reaction to light. NECK: Cuffed tracheostomy tube in place. Moderate secretions persist. CARDIOVASCULAR: S1-S2 normal no murmurs. No JVD. RESPIRATORY: Breath sounds equal bilaterally. Persistent scattered rhonchi GASTROINTESTINAL: Abdomen soft. PEG tube site clean and dry, tube feeds at 60 ml per hour MUSCULOSKELETAL: No cyanosis. Generalized edema. NEURO: Eyes are closed. Unresponsive to stimulation in all 4 limbs. Assessment and Plan - Assessment and Plan Plan: Assessment: Asystole/Cardiac arrest Worsening encephalopathy most likely anoxia contributing Aspiration pneumonia Acute on chronic hypoxemic and hypercapnic resp failure Combined shock, septic and cardiogenic Healthcare associated pneumonia, stenotrophomonas Candidemia UTI with ESBL E. coli Hyponatremia CVA Anemia requiring transfusion Sacral decubitus ulcer s/p NSTEMI Optic neuritis Status post tracheostomy and PEG tube placement Plan: Impression: Neuro -Acute worsening of encephalopathy secondary to systolic cardiac arrest, anoxia -CT head 02/08/[address] Pereria reconsulted per family request -MRI EEG today, pending -History of L ENID infarct. Status post systemic TPA on November 09 -On warfarin INR 3.9, put on hold, pharmacy dosing -Neuropsychology has followed. Continue Ritalin -Optic neuritis. Status post treatment with IV hydrocortisone -Remains unresponsive. CV: -Asystole/cardiac arrest seems secondary to hypoxia and hypercapnia from severe aspiration -Levophed to keep map above 65 -s/p IV fluid normal saline 2 L bolus, 2U PRBC -Increase half-normal saline to 150 ml per hour due to hypernatremia, increase free water flushes to 300 mL every 6 -Continue Coumadin, on hold now due to the INR 3.9 -Echo 10/19: LV systolic function is moderately reduced, EF 40-45%. Cardiology has followed Dr. Hernández -Harishura 2mg daily and Coreg 3.125mg BID on hold due to hypotension. On Lipitor 80mg qhs Pulm: -Cardiac arrest seems to be secondary to respiratory arrest. Evidence of aspiration at the time of arrest -Cuff less tracheostomy tube removed and new Shiley 8 cuffed tracheostomy placed 02/08/18 -PRVC/AC ventilation. DuoNeb every 6 hours scheduled and as needed -Failed CPAP due to apnea -ICU vent bundle. Pulm toilet, trach care. -GNR in sputum culture, On Levaquin for stenotrophomonas, Diflucan for candidemia, meropenem for previous ESBL E Coli HCAP -Antibiotic and antifungal coverage remains appropriate. GI -Currently tube feeds at 10 mL/h, advance as tolerated -On Pepcid 10mg BID -Free water flushes 300 mils every 6 hours -Having BMs -Tube feeds at 60 mL's per hour 02/12. -Tube feeds tolerated with acceptable gastric residual however profuse diarrhea has started. : -Monitor renal function, electrolytes replacement per protocol -Discontinue IV, increase free water flushes to 300 mL every 6 ID -Patient was receiving Levaquin for stenotrophomonas, Diflucan for candidemia -Added meropenem 02/08/18 for previous ESBL E. coli HCAP -Previous UTI with ESBL E. coli, Previous healthcare associated pneumonia with Klebsiella and ESBL E. coli -F/U blood and sputum culture and urine culture. GNR in sputum 02/08 -ID Dr. Jalloh following Skin -Sacral wound-Seen by Plastic surgery; debridement declined per patient's family -Wound care is following- apply dressings per wound management recommendations Heme: -Monitor hemoglobin closely. Status post 2 units PRBC on 02/08/2018 -Previous GI bleed; Status post EGD colonoscopy. GI has signed off, patient with healed rectal ulcers and hemorrhoids. -INR therapeutic -If recurrent anemia will reconsult GI Endo -On SSI. Levemir for glycemic control, increasing dosage. GI prophylaxis- on Pepcid DVT prophylaxis- On Coumadin hold due to INR 3.9, restarted and adjusted per pharmacy consultation. Overall impression: Patient remains critically ill after aspiration with hypoxemic and hypercarbic respiratory failure leading to asystolic cardiac arrest. Ten minutes of CPR with return of spontaneous circulation after aggressive resuscitation following CPR, patient remains hypoxemic and encephalopathy. Remains unresponsive, weak respiratory effort is ineffective, unable to begin weaning from ventilator. Prognosis remains poor.
--- NOTE | 2018-02-19 14:03 | P.PNPL ---
Subjective Interval history: Patient remains on ventilator via trach- On PS 15, PEEP:8 and FIO2: 35%. Afebrile. Physical Exam Vital signs: Vital Signs 02/18/18 14:00 02/18/18 16:00 02/18/18 16:13 Temperature 99.7 F H Pulse Rate 86 100 H Respiratory Rate 21 21 Blood Pressure 118/63 Pulse Oximetry 96 96 02/18/18 18:00 02/18/18 19:53 02/18/18 20:00 Temperature 99.3 F Pulse Rate 122 H 118 H Respiratory Rate 21 22 Blood Pressure 99/58 L Pulse Oximetry 96 96 02/18/18 21:11 02/18/18 22:00 02/18/18 23:38 Temperature Pulse Rate 115 H 92 H Respiratory Rate 22 20 Blood Pressure Pulse Oximetry 94 L 02/19/18 00:00 02/19/18 02:00 02/19/18 03:27 Temperature 98.2 F Pulse Rate 92 H 90 Respiratory Rate 18 17 Blood Pressure 111/52 L Pulse Oximetry 95 96 02/19/18 04:00 02/19/18 06:00 02/19/18 07:33 Temperature 98.4 F Pulse Rate 86 90 Respiratory Rate 14 21 Blood Pressure 97/52 L Pulse Oximetry 95 99 02/19/18 08:00 Temperature 97.8 F Pulse Rate 80 Respiratory Rate 20 Blood Pressure 108/58 L Pulse Oximetry 96 Intake & Output 02/18/18 02/19/18 02/19/18 18:59 06:59 18:59 Intake Total 501 / 501 1366 / 1366 Output Total 1715 / 1715 1200 / 1200 Balance -1214 / -1214 166 / 166 Weight 91.7 kg Intake: IV 800 / 800 1/2 Normal Saline Inj 1,000 ML 700 / 700 @ 20 mls/hr IV.CONT .Q24H EDE Rx#:[id number] Rocephin Inj 2,000 MG In NS Inj 100 / 100 100 ML @ 200 mls/hr IV.SIG Q24H EDE Rx#:[id number] Oral 0 / 0 Tube Feeding 231 / 231 266 / 266 Tube Irrigant 120 / 120 Water Bolus Amount 150 / 150 300 / 300 Output: Stool 15 / 15 50 / 50 Urine Amount (Catheter) 1700 / 1700 1150 / 1150 Indwelling Urethral Catheter 1700 / 1700 1150 / 1150 Other: Date of Last Bowel Movement 02/18/18 02/18/18 02/19/18 # Bowel Movements 0 - Constitutional no acute distress, chronically ill appearing - Routine HEENT Exam Head: Present: normocephalic, atraumatic Eye: Present: EOMI, PERRL ENT: Present: mucous membranes moist - Routine Neck Exam Present: supple, full ROM, trachea midline - Routine Respiratory Exam Present: patient mechanically ventilated, CTA bilaterally - Routine Cardiovascular Exam Present: RRR, S1, S2 - Routine Abdominal Exam Present: soft, normoactive bowel sounds - Routine Extremities Exam Present: pulses intact - Routine Skin Exam Present: intact - Routine Neurological Exam Present: altered mental status - Urinary Catheter Management Straight Cath placed during this visit: yes Urethral indwelling: Yes Reason for continuing: Acute urinary retention Insertion date: 01/21/18 Insertion time: 08:00 Indwelling Urethral Catheter Cath placed during this visit: yes, but has since been removed by the nurse Urethral indwelling: Yes Reason for continuing: Hourly intake/output Insertion date: 01/21/18 Insertion time: 16:18 Removal date: 01/20/18 Removal time: 15:15 Assessment and Plan - Plan 1)Chronic resp failure 2)s/p trach and PEG tube placement 3)Encephalopathy 4)CVA 5)Anemia 6)CAD/NSTEMI 7)Wound of sacral region 8)Optic neuritis 9)Fungemia 10)UTI- E.coli ESBL, Pseudomonas 11)Klebsiella Pneumonia Plan Continue with vent support keep >92% Bronchodilators Pulm toilet, trach care SBT daily as vaishnavi Abx per ID( Rocephin)monitor for signs of infections ( fever, WBC) Continue Lasix 40mg BID Monitor CBC, INR on Coumadin with INR 3.3 today Poor prognosis Continue treatment plan.
--- NOTE | 2018-02-19 16:02 | P.PNID ---
Subjective Remarks: remains on CPAP minimal responsiveness not much secretions no fever Antibiotics: CFTX Lines: Lines ok Past Medical History: reviewed Allergies/Adverse Reactions: Allergies Glucerna 1.5 Adverse Reaction (Uncoded 02/09/18 12:04) Vomiting Objective Vital Signs 02/18/18 16:00 02/18/18 16:13 02/18/18 18:00 Temperature 99.7 F H Pulse Rate 100 H 122 H Respiratory Rate 21 21 Blood Pressure 118/63 Pulse Oximetry 96 96 02/18/18 19:53 02/18/18 20:00 02/18/18 21:11 Temperature 99.3 F Pulse Rate 118 H 115 H Respiratory Rate 21 22 22 Blood Pressure 99/58 L Pulse Oximetry 96 96 02/18/18 22:00 02/18/18 23:38 02/19/18 00:00 Temperature 98.2 F Pulse Rate 92 H 92 H Respiratory Rate 20 18 Blood Pressure 111/52 L Pulse Oximetry 94 L 95 02/19/18 02:00 02/19/18 03:27 02/19/18 04:00 Temperature 98.4 F Pulse Rate 90 86 Respiratory Rate 17 14 Blood Pressure 97/52 L Pulse Oximetry 96 95 02/19/18 06:00 02/19/18 07:33 02/19/18 08:00 Temperature 97.8 F Pulse Rate 90 80 Respiratory Rate 21 20 Blood Pressure 108/58 L Pulse Oximetry 99 96 02/19/18 15:49 Temperature Pulse Rate Respiratory Rate 19 Blood Pressure Pulse Oximetry 96 Intake & Output 02/18/18 02/19/18 02/19/18 18:59 06:59 18:59 Intake Total 501 / 501 1366 / 1366 Output Total 1715 / 1715 1200 / 1200 Balance -1214 / -1214 166 / 166 Weight 91.7 kg Intake: IV 800 / 800 1/2 Normal Saline Inj 1,000 ML 700 / 700 @ 20 mls/hr IV.CONT .Q24H EDE Rx#:[id number] Rocephin Inj 2,000 MG In NS Inj 100 / 100 100 ML @ 200 mls/hr IV.SIG Q24H EDE Rx#:[id number] Oral 0 / 0 Tube Feeding 231 / 231 266 / 266 Tube Irrigant 120 / 120 Water Bolus Amount 150 / 150 300 / 300 Output: Stool 15 / 15 50 / 50 Urine Amount (Catheter) 1700 / 1700 1150 / 1150 Indwelling Urethral Catheter 1700 / 1700 1150 / 1150 Other: Date of Last Bowel Movement 02/18/18 02/18/18 02/19/18 # Bowel Movements 0 Lab - Hematology Results 02/19/18 04:45 WBC 8.7 RBC 2.88 L Hgb 7.6 L Hct 24.1 L MCV 83.6 MCH 26.6 L MCHC 31.8 L RDW 20.2 H Plt Count 193 MPV 9.4 Neut % (Auto) 56.5 Lymph % (Auto) 31.5 [place] % (Auto) 7.7 Eos % (Auto) 4.1 H Baso % (Auto) 0.2 Neut # (Auto) 4.9 Lymph # (Auto) 2.7 [place] # (Auto) 0.7 Eos # (Auto) 0.4 Baso # (Auto) 0.0 WBC Differential . Differential Comment Auto diff final Lab - Chemistry Results 02/17/18 02/18/18 02/18/18 17:58 00:16 05:22 Sodium Potassium Chloride Carbon Dioxide Anion Gap BUN Creatinine Estimated GFR POC Glucose 218 H 237 H 184 H Random Glucose Calcium Total Bilirubin AST ALT Alkaline Phosphatase Total Protein Albumin 02/18/18 02/18/18 02/18/18 12:04 18:30 19:01 Sodium Potassium Chloride Carbon Dioxide Anion Gap BUN Creatinine Estimated GFR POC Glucose 114 H 59 L 94 Random Glucose Calcium Total Bilirubin AST ALT Alkaline Phosphatase Total Protein Albumin 02/18/18 02/19/18 02/19/18 20:54 00:41 04:45 Sodium 151 H Potassium 3.4 L Chloride 114 H Carbon Dioxide 29.4 Anion Gap 8 BUN 78 H Creatinine 1.21 Estimated GFR 58 L POC Glucose 71 109 Random Glucose 105 Calcium 7.8 L Total Bilirubin 0.2 AST 81 H ALT 41 Alkaline Phosphatase 204 H Total Protein 6.1 L Albumin 1.1 L 02/19/18 12:15 Sodium Potassium Chloride Carbon Dioxide Anion Gap BUN Creatinine Estimated GFR POC Glucose 202 H Random Glucose Calcium Total Bilirubin AST ALT Alkaline Phosphatase Total Protein Albumin Imaging: ITS Impressions Chest CT 01/03/18 00:00 CONCLUSION: 1. Large bilateral pleural effusions occupying more than half of the right and left hemithorax. Abdomen/Pelvis CT 01/13/18 00:00 CONCLUSION: 1. Small bilateral pleural effusions and basilar infiltrates with bilateral chest tubes in place. 2. No evidence of ascites or bowel dilatation. Abdomen/Bladder Ultrasound 01/15/18 00:00 CONCLUSION: 1. Negative renal sonogram. Abdomen X-Ray 02/08/18 00:00 CONCLUSION: 1. Nonobstructive bowel gas pattern. 2. Gastrostomy tube in the left upper abdominal quadrant Head CT 02/08/18 00:00 CONCLUSION: 1. Stable prominent senescent changes with mild to moderate periventricular ischemic white matter demyelination. 2. No acute intracranial abnormality.. Head MRI 02/10/18 00:00 CONCLUSION: 1. No acute findings. Extensive cortical volume loss. Moderate white matter ischemic changes. No recent infarct. Chest X-Ray 02/11/18 06:00 CONCLUSION: Diffuse consolidation likely related to edema. Mild bilateral pleural effusions being worse on the left. Physical Exam: GENERAL: unresponsive On vent SKIN: Warm and dry. No rash HEAD: Normocephalic. EYES: No scleral icterus. No injection or drainage. NECK: Supple, trachea midline. + trach in place with large amount of drainage CARDIOVASCULAR: RRR. No murmurs, rubs, gallops RESPIRATORY: Breath sounds equal bilaterally. No accessory muscle use. Clear GASTROINTESTINAL: Abdomen soft, non-tender, nondistended. +PEG tube in place MUSCULOSKELETAL: No cyanosis, improved pitting edema. GUl; garcia in place with yellow urine Neuro: obtunded unresponsive no eye contact, not follws commands non vernbal Assessment and Plan - Plan Sacral decub with possible underlying infection, osteomyelitis. Prior h/o ESBL E.coli on 10/24/2017. Possible HCAP GNR UTI ? ESBL given h/o ESBL. 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 Encephalopathy: strokes in hospital, optic neuritis on presentation. Fungemia, C. tropicalis Gram negative UTI: PSAE and ESBL + Kleb: sp complelted treatment PNA Acute VDRF Encepholapathy sp code Aspiration, likely aspiration PNA - Growing Kleb pneumon in spututm S to CFTX Diarea, abx associated dc abx dw RN will follow as needed
[2018-02-20] MEDS: Insulin NovoLIN Regular Correctional Sugar Inj SQ SCH ×4 (01:30→18:44)
[2018-02-20 05:11] LABS: INR 2.8 Ratio; Prothrombin Time 28.1 sec (9.8-11.6)
[2018-02-20] MEDS: Insulin Detemir Inj 1,000 UNIT/10 ML Vial SQ SCH ×3 (07:41→21:06)
[2018-02-20] MEDS: Sodium Chloride 0.45 % Inj 1,000 ML IV.CONT SCH ×2 (07:42→21:06)
[2018-02-20] MEDS ORDERED: Potassium Chlor 40 mEq Premix 40 MEQ/100 ML PIGGYBACK IV.SIG ONE (08:15)
--- NOTE | 2018-02-20 08:43 | P.PNCC ---
Subjective Subjective Remarks/Hospital Course: This is a 77-year-old male who initially presented with vision changes and concern for optic neuritis versus temporal arteritis. His initial presentation was on 10/14. His hospital course has been complicated by an NSTEMI with troponins which peaked at 10, ESBL E. coli urinary tract infection, rectal bleeding suspected from bleeding hemorrhoids, acute anemia secondary to blood loss with hemoglobin started around 14 and is trended down to 9.7 this morning. On his initial MRA he was found to have significant atherosclerotic cerebrovascular disease in all vascular territories. Today, he had an acute mental status change and was obtunded. Rapid response and stroke alert was called. His initial NIH stroke scale was 22. Dr. goldstein had conversations with Dr. Ulloa and neurology as well as Dr. sierra with gastroenterology. GI feels comfortable with giving thrombolytics and neurology feels strongly that this patient would benefit from systemic IV TPA therapy. I evaluated the patient on arrival to the intensive care unit. The patient is arousable, but very somnolent. He is Chinese speaking, and it is very difficult to ascertain whether or not he can follow commands. He does move all extremities spontaneously, although it appears that his left side is weaker than his right. He has noted facial droop. CT head is negative for acute hemorrhage. CTA head neck is significant for the same multivessel cerebrovascular disease that was present on admission. Given the high-risk nature of the stroke as well as his acute anemia this hospitalization, in preparation for giving emergent IV systemic TPA, I placed an arterial line as well as a large-bore peripheral IV so that we could draw serial labs, monitor his hemoglobin, and give blood products if necessary. I also had an additional discussion with the family where I reconfirmed that their goals were aggressive and they fully understood the significant risk of life-threatening hemorrhage associated with systemic TPA in a patient with new anemia and suspected GI bleeding. The family expressed understanding of his condition and understanding of the heightened risk of life-threatening bleeding, but still urged that we needed to get TPA. Immediately after giving IV TPA, patient had a tonic clonic seizure (witnessed on EEG) and became obtunded with acute hypoxic and hypercarbic respiratory failure and was emergently intubated (see separate procedure note for details). 11/10: remains intubated. encephalopathy persists. hgb stable s/p TPA. ~350cc bloody OG tube output, but this is slowing down. 11/11: more awake. on SBT. follows commands. 11/12: remains extubated. off vasopressors. no changes in mental status. 11/18/17 CCM Reconsult Note Patient was transferred to ICU today after a Halicat was called for AMS, hypoxia , high fever. Apparently patient was lethargic since a.m. in the last hour had been unresponsive and hence Halicat was called. Patient had a fever of 101.4 in a.m., T-max is 101.6. I immediately evaluated the patient in the ICU. Patient is completely unresponsive, oxygen saturation 87% on 4 L nasal cannula. Hypopneic. No response to deep pain. Patient was confirmed to be a full code and I proceeded with endotracheal intubation place him on mechanical ventilation as patient was not protecting airway. More history was obtained from discussion with ID Dr. Jalloh. She indicated patient had been increasingly lethargic with fever and also had urinary retention.She has discontinued Ertapenem, and started on meropenem, vancomycin and micafungin. Cultures have been sent and are pending now. Source of sepsis appears to be aspiration pneumonia versus UTI. Repeat UA and panculture pending at this time. Patient was borderline hypotensive prior to intubation and I have started on Levophed to avoid hypotension post intubation. Receiving 1 L normal saline bolus now, give additional fluid bolus if patient requires continued Levophed will place central line 11/19: remains intubated. holding aggrenox for possible thoracentesis today, but family hesitant to consent with concerns over bleeding risk. Cr remains elevated. discussion with Dr. Bernal, unlikely to benefit currently from draining effusion, so at his recommendation, will proceed with attempted weaning from mechanical ventilation and treat effusion conservatively. 11/20: Overnight /early this a.m. ,the patient was noted to have large amount of rectal bleeding. Aggrenox held since 11/18, 2/2 reintubation. Type and screen ordered. Serial H&H currently be performed. Hemodynamically stable. GI has been reconsulted. Protonix previously given PRN, will schedule BID. Patient was reintubated emergently 11/18, plan for continue CPAP trials. Tube feedings until evaluation by GI. ASA placed on hold , in the setting of GI bleeding. 11/21: EGD and colonoscopy performed yesterday. Patient was noted to be constipated ,disimpacted per GI. Patient noted to have hemorrhoids which was clipped. No further bleeding throughout the night. Chest x-ray showed improvement. CPAP trials initiated this a.m.. ASA 81 mg resumed. 11/22: Patient tolerated CPAP trials approximately 13 hours yesterday. Initiation of tube feeds per GI yesterday, no residuals. This am , family concerned patient not responsive. CT brain , ammonia level and EEG pending. Neurology has been reconsulted. Upon my entering the room, this afternoon, the patient was awake, tracking and squeezing my hand upon commands, with right hand. The patient received 1 u PRBC for Hgb 7.2. Post transfusion CBC pending. Plan for quantification of pleural fluid for possible thoracentesis in a.m.. 11/23: No acute events overnight. Patient remains off all sedation. Noted spontaneous eye opening, tracking following commands squeezing hands right greater than left. Neurology following plan for MRI this a.m., repeat EEG pending. Hemoglobin stable this a.m.. Chest x-ray slight improvement, plan for quantification via ultrasound of pleural effusions for possible thoracentesis today. 3 failed attempts at CPAP trials yesterday. 1548-MRI resulted findings consistent of small areas of acute cortical infarct, new since 11/09/2017. I contacted neurology, Dr. Geronimo informed of results. After Dr. Palma's review of imaging and records, it was determined most likely cardioembolic since is affecting both sides and failure with aspirin and Persantine. Ischemic stroke heparin protocol initiated. Careful review secondary to patient history of GI bleed 11/20, thought to be emanating from hemorrhoid ,however due to poor suboptimal prep, they unable to have optimal visualization per Dr. Jones. 11/24: Late entry note. Patient seen and evaluated 614. No acute events overnight. Patient continues on heparin infusion no active signs of bleeding. PTT within therapeutic range. The patient is less responsive this a.m., spontaneous eye opening, not following my commands. Not moving his extremities spontaneously for me as previously performed yesterday. tube feeds reinitiated. Chest x-ray showed further improvement in aeration of lungs the patient continues on FiO2 of 0.35. Plan for CPAP trials today. 11/25: No acute events overnight. Neurological status unchanged. Spontaneous eye opening patient continues not following any commands. Dr. Geronimo at bedside evaluating patient, no change. Patient tolerated CPAP trials approximately 12 hours yesterday. Tolerating tube feeds. Chest x-ray remains unchanged from yesterday. Hemoccult stool negative. Heparin infusion continued. family at bedside. 11/26: Late entry note. Patient seen at 1240pm. Last night the patient was noted to be continuously hyperglycemic. Levemir added to medication regimen 10 mg/day hemoglobin dropped 2 g/dL in 2 days hemoglobin now 7.7, patient to be transfused 1 unit packed red blood. No obvious signs of bleeding Hemoccult was negative. Patient continues on heparin infusion, patient may require tracheostomy and PEG in the near future . Plan to transition to p.o. anticoagulation post procedures. Neurologically the status is unchanged the patient is opens eyes spontaneously no movement of extremities upon my evaluation. Continued CPAP trials currently greater than 6 hours. 11/27: At 1000am, the patient was noted to have melena, approximated at 150 cc per RN evaluation. Heparin infusion discontinued/placed on hold at 10 AM. Stool for Hemoccult blood sent, GI was contacted and informed of the above events. Stat CT of the abdomen and pelvis with p.o. contrast ordered, results pending. Patient previously had been tolerating trickle feeds at 10 cc an hour with no residuals, after initiation of Reglan 5 mg every 8 hours yesterday. Neurologically the patient status is unchanged. Patient does have spontaneous eye opening but does not follow my commands and does not move extremities. Patient's daughter is at bedside, discussed the above events at which she was present for, she is requesting a repeat colonoscopy. I informed her that a CT of the abdomen and pelvis will be obtained, serial hemoglobin will be evaluated and if needed transfusion will be provided and gastroenterology has been contacted and will determine further management if an invasive procedure is required. Hemoglobin continues to be monitored serially, results pending for 10 AM. The patient received 1 unit packed red blood cells, and current hemoglobin trended overnight 8.9 to 8.2 this a.m., posttransfusion. 11/28: hgb continues to decline despite being off heparin. no additional GI interventions are available at this time. clearly the patient has failed anticoagulation with 2 life-threatening bleeding episodes. Although it is clear he may have additional strokes off anticoagulation, we have clear evidence that we are hurting his overall clinical care with his anticoagulation. I explained this at length to the daughter and medical decision maker. however, she insists that she would rather see him of bleeding rather than have any more strokes , and insists that "we can always keep giving him blood". I explained that blood is not without risk, and there is significant risk to anticoagulation, but she is insistent that he be given anticoagulation to prevent further strokes and she has weighed the risks and benefits after having full informed consent, insists upon us restarting the heparin drip. At her insistence, I have restarted it. In addition, I have counseled her that I do not think he will survive this hospitalization, and he will require tracheostomy for further aggressive care. She states that we are not at "day 14" on the vent, and it is not time for a tracheostomy yet. This is a second intubation and we are certainly at risk for complications from endotracheal intubation, and tracheostomy would be the most appropriate next step for this patient, but the family is refusing until WednesdayDecember 01. 11/29 Patient remains intubated, on no sedation. Afebrile. 11/30 No events overnight. Patient tolerated CPAP for most of day yesterday. Remains on Heparin drip. 12/01 Patient remains intubated tolerated CPAP for several hrs yesterday. s/p CT guided right thoracentesis with removal 500ml pleural fluid. On Heparin drip 12/02 No events overnight. Heparin drip stopped this morning for trach and PEG placement today. Afebrile. 12/03 Patient s/p trach and PEG tube placement yesterday. Had bleeding from around trach and PEG tube insertion sites Heparin drip held last night. s/p transfusion 1u PRBC yesterday Hgb 8.0 this morning. Afebrile. On no sedation. 12/04: Continues to have bruising from PEG tube insertion site. Trach site appears to have stopped. Hemoglobin 7 the same receiving 1 unit FFP and 1 PRBCs. Tube feeds of been resumed. On no sedation. 12/05: Afebrile. No further bleeding noted from the tracheostomy site. Overnight reported by the RN that the PEG tube site continues to bleed Surgicel was placed around the opening, small amount of bleeding still noted. Patient hemoglobin remained 7 patient to be transfused 1 unit PRBC's fibrinogen level pending INR within normal limits. 12/06 Patient s/p transfusion 2u PRBC yesterday Hgb 9.5 this morning from 7.2 last night. No bleeding from trach site however patient still having rectal bleeding. 12/07 No events overnight. On ventilator via trach Hgb 9.8 this morning for colonoscopy today. 12/08: seen and examined around 06:30am. no significant change in mental status. hgb 8.9 this AM. remains on heparin drip at [facility]. 12/09: no improvements or changes. very deconditioned. garcia has remained in without clear indication. had 1 episode of urinary retention, but this is a clear source of infection and an additional serious infection would certainly be life-threatening. 12/10 Patient is now on TP's with 28% FIO2, Afebrile. On Heparin drip. 12/11: remains on t-piece x > 48h. no change in neuro exam. remains on heparin drip with stable hgb 7.8. Subjective: 12/12: asked to see patient again today by the hospitalist service for change in condition. I have evaluated the patient and he does not clinically appear any different than yesterday. HR actually lower than yesterday. bladder scan suggestive of 600cc retention. patient has had urinary retention before, although has also had multiple hospital acquired urinary tract infections. risk/ benefit at this time would be in favor of serial q6h straight catheterizations. remains hemodynamically stable. some emesis today and evidence of ileus. 12/31 Reconsult for resp distress Patient is 77 yo with chronic resp failure, trach/PEG tube placement, CVA transferred to [facility] for resp distress trach changes to #6 and patient was placed on mechanical ventilation. CXR showed increasing consolidation patient was given Lasix prior to arrival to [facility]. 01/01 Patient is on ventilator via trach. Afebrile. 01/02 No events overnight. On no drips, Afebrile, CPAP 15/5 with 35% FIO2 overnight. 01/03 Remained on TP breathing comfortably. CXR shows bilateral effusions. Will get CT chest. Give single dose of lasix. ID consulted and following, no fever in 24 hours 01/04: Remains unresponsive, fever trending down. Sputum culture now growing Klebsiella and ESBL E. coli. Urine culture and wound culture also growing ESBL E. coli. Chest tube placed on the right side yesterday with 1.35 L output since placement. Urine output excellent with single dose of Lasix 2.5 L in 24 hours. No fever in 24 hours. Repeat 40 mg IV Lasix 1 [facility] RECONSULT NOTE 02/08/18: Mr. Glynn is a 77-year-old man who is known to our service. In short, he was initially admitted with possible optic neuritis versus temporal arteritis in September. Care complicated by an STEMI, multiple infections with healthcare associated pneumonia UTIs. During hospitalization he also received TPA for Stroke, MRI of the brain performed on 12/24/2017, showed infarction involving the left corpus callosum and splenium of the corpus callosum. The patient had undergone tracheostomy placement. And since last month had been on hospitalist service and off ventilator. He is currently receiving Levaquin for stenotrophomonas infection, Diflucan for candidemia. Apparently patient was noted to aspirate earlier this a.m. At 7250 AM patient was found unresponsive pulseless rhythm asystole and CPR was started. Total 3 amp of epinephrine given. Patient had a cuff less trach with evidence of aspiration, large amount of tube feeds aspirated from tracheostomy tube. This was exchanged for a 8.0 Shiley tracheostomy cuffed. With improved bag and mask ventilation and after 3 epinephrine, 1 amp of calcium, 1 amp of bicarb, patient regained ROSC SUBJ 02/09/18: Remains very critical not on any sedation he is unresponsive eyes are spontaneously open but no tracking. Very slight withdrawal to pain on the upper extremities. CT of the head unremarkable. Currently borderline hypotensive off pressors. Received 2 units of PRBC for hemoglobin 6.6 yesterday. Prognosis remained poor. Neurology consulted per family request 02/10/18: Remains critical with no improvement in neuro status or clinical status. Eyes are spontaneously open but no response to threat no tracking. Neurology consulted MRI and EEG pending at this time. Currently remains on Levophed at 1 mcg/min. Chest x-ray with bilateral infiltrates sputum culture growing GNR. Na 155. Free water flushes and half-normal saline rate increased. 02/11: Remains unresponsive off all sedation. Osmolality slowly returning to baseline. Antibiotics appropriate for organism. Tube feeds tolerated at 50 mL' s per hour. Unable to wean from mechanical ventilation. 02/12: Osmolality slowly returning to baseline. Tube feeds now tolerated at 60 mL's per hour. Unable to wean from mechanical ventilation due to fatigue. 02/13: Placed on spontaneous breathing trial this morning but required 18 of pressure support to maintain an adequate minute volume. Will work from this point and attempt to wean pressure support over the next many days. Will place back on mechanical rate nightly. Anticoagulation is been particularly cumbersome and made more difficult by Diflucan. Will restart Coumadin again this morning as INR is declined to 2.2 02/14: Remains very weak. Essentially unresponsive. Tolerates brief periods of spontaneous breathing trial blood pressure support must be markedly elevated to the 1820 range. State of hydration gradually improving as osmolality declines and serum creatinine improves. Will continue hypotonic solutions IV. 02/15: Remains unresponsive. Continues to fail spontaneous breathing trials due to lack of respiratory effort. Suffers from tachypnea with an efficient small tidal volumes regardless of the amount of pressure support. 02/16: Onset of copious watery diarrhea is contaminating buttock wounds. We will insert a dignity shield system for fecal management. Remains unresponsive to noxious stimulation. He does have a weak cough reflex. 02/17: Patient is weaker on attempts at spontaneous breathing trials today. Patient remains unresponsive. Only reaction is a weak cough to suctioning. 02/18: Patient continues to do poorly on attempts at spontaneous breathing trials. Urine output is improved with diuresis, will follow renal function closely. 02/19: Albumin 1.1, further evidence that the patient is deteriorating. Responds to diuretics but prerenal azotemia quickly develops. 02/20: Ongoing attempts to remove excess soft tissue and pleural water consistently resolved and renal impairment. Unfortunately this is largely caused by his poor nutritional status. Despite sufficient nutritional support he continues to deteriorate clinically. Objective Vital Signs / I&O: Vital Signs 02/19/18 10:00 02/19/18 12:00 02/19/18 14:00 Temperature 97.5 F L Pulse Rate 72 82 76 Respiratory Rate 23 Blood Pressure 118/58 L Pulse Oximetry 98 02/19/18 15:49 02/19/18 16:00 02/19/18 18:00 Temperature 97.5 F L Pulse Rate 76 76 Respiratory Rate 19 19 Blood Pressure 111/56 L Pulse Oximetry 96 99 02/19/18 19:49 02/19/18 20:00 02/19/18 22:00 Temperature 98.7 F Pulse Rate 87 75 Respiratory Rate 14 14 Blood Pressure 111/55 L Pulse Oximetry 98 96 02/19/18 23:49 02/20/18 00:00 02/20/18 02:00 Temperature 97.5 F L Pulse Rate 80 87 Respiratory Rate 22 21 Blood Pressure 116/58 L Pulse Oximetry 98 98 02/20/18 04:00 02/20/18 06:00 02/20/18 08:00 Temperature 97.7 F Pulse Rate 89 89 Respiratory Rate 25 H 26 H Blood Pressure 125/61 Pulse Oximetry 94 L 99 02/20/18 08:27 Temperature Pulse Rate 86 Respiratory Rate 20 Blood Pressure Pulse Oximetry Intake & Output 02/19/18 02/20/18 02/20/18 18:59 06:59 18:59 Intake Total 1049 / 1049 609 / 609 Output Total 2150 / 2150 1825 / 1825 Balance -1101 / -1101 -1216 / -1216 Weight 91.4 kg Intake: Tube Feeding 449 / 449 609 / 609 Water Bolus Amount 600 / 600 Output: Stool 200 / 200 0 / 0 Urine Amount (Catheter) 1949 Indwelling Urethral Catheter 1949 Other: Date of Last Bowel Movement 02/19/18 02/19/18 Result Diagrams: 02/19/18 04:45 02/19/18 04:45 Objective Remarks: GENERAL: Patient is 77 yo encephalopathic, unresponsive on the vent. Eyes are closed. SKIN: Warm and dry. Stage IV sacral decubitus, surrounding buttocks excoriation. HEAD: Normocephalic. Tongue moist. EYES: No scleral icterus. No injection. PRABHA. NECK: Cuffed tracheostomy tube in place. Moderate secretions persist. CARDIOVASCULAR: S1-S2 normal no murmurs. No JVD. RESPIRATORY: Breath sounds equal bilaterally. Persistent scattered rhonchi GASTROINTESTINAL: Abdomen soft. PEG tube site clean and dry, tube feeds at 60 ml per hour MUSCULOSKELETAL: No cyanosis. Generalized edema. NEURO: Eyes are closed. Unresponsive to stimulation in all 4 limbs. Weak cough reflex. Assessment and Plan - Assessment and Plan Plan: Assessment: Asystole/Cardiac arrest Worsening encephalopathy most likely anoxia contributing Aspiration pneumonia Acute on chronic hypoxemic and hypercapnic resp failure Combined shock, septic and cardiogenic Healthcare associated pneumonia, stenotrophomonas Candidemia UTI with ESBL E. coli Hyponatremia CVA Anemia requiring transfusion Sacral decubitus ulcer s/p NSTEMI Optic neuritis Status post tracheostomy and PEG tube placement Plan: Impression: Neuro -Acute worsening of encephalopathy secondary to systolic cardiac arrest, anoxia -CT head 02/08/[address] Pereira reconsulted per family request -MRI EEG today, pending -History of L ENID infarct. Status post systemic TPA on November 09 -On warfarin INR 3.9, put on hold, pharmacy dosing -Neuropsychology has followed. Continue Ritalin -Optic neuritis. Status post treatment with IV hydrocortisone -Remains unresponsive. CV: -Asystole/cardiac arrest seems secondary to hypoxia and hypercapnia from severe aspiration -Levophed to keep map above 65 -s/p IV fluid normal saline 2 L bolus, 2U PRBC -Increase half-normal saline to 150 ml per hour due to hypernatremia, increase free water flushes to 300 mL every 6 -Continue Coumadin, on hold now due to the INR 3.9 -Echo 10/19: LV systolic function is moderately reduced, EF 40-45%. Cardiology has followed Dr. Betty Hammond 2mg daily and Coreg 3.125mg BID on hold due to hypotension. On Lipitor 80mg qhs Pulm: -Cardiac arrest seems to be secondary to respiratory arrest. Evidence of aspiration at the time of arrest -Cuff less tracheostomy tube removed and new Shiley 8 cuffed tracheostomy placed 02/08/18 -PRVC/AC ventilation. DuoNeb every 6 hours scheduled and as needed -Failed CPAP due to apnea -ICU vent bundle. Pulm toilet, trach care. -GNR in sputum culture, On Levaquin for stenotrophomonas, Diflucan for candidemia, meropenem for previous ESBL E Coli HCAP -Antibiotic and antifungal coverage remains appropriate. GI -Currently tube feeds at 10 mL/h, advance as tolerated -On Pepcid 10mg BID -Free water flushes 300 mils every 6 hours -Having BMs -Tube feeds at 60 mL's per hour 02/12. -Tube feeds tolerated with acceptable gastric residual however profuse diarrhea has started. : -Monitor renal function, electrolytes replacement per protocol -Discontinue IV, increase free water flushes to 300 mL every 6 ID -Patient was receiving Levaquin for stenotrophomonas, Diflucan for candidemia -Added meropenem 02/08/18 for previous ESBL E. coli HCAP -Previous UTI with ESBL E. coli, Previous healthcare associated pneumonia with Klebsiella and ESBL E. coli -F/U blood and sputum culture and urine culture. GNR in sputum 02/08 -ID Dr. Jalloh following Skin -Sacral wound-Seen by Plastic surgery; debridement declined per patient's family -Wound care is following- apply dressings per wound management recommendations Heme: -Monitor hemoglobin closely. Status post 2 units PRBC on 02/08/2018 -Previous GI bleed; Status post EGD colonoscopy. GI has signed off, patient with healed rectal ulcers and hemorrhoids. -INR therapeutic -If recurrent anemia will reconsult GI Endo -On SSI. Levemir for glycemic control, increasing dosage. GI prophylaxis- on Pepcid DVT prophylaxis- On Coumadin hold due to INR 3.9, restarted and adjusted per pharmacy consultation. Overall impression: Patient remains critically ill after aspiration with hypoxemic and hypercarbic respiratory failure leading to asystolic cardiac arrest. Ten minutes of CPR with return of spontaneous circulation after aggressive resuscitation following CPR, patient remains hypoxemic and encephalopathy. Remains unresponsive, weak respiratory effort is ineffective during spontaneous trials, unable to begin weaning from ventilator. Prognosis remains poor.
[2018-02-20] MEDS: Famotidine 20 MG Tablet PO SCH ×2 (09:24→21:07)
[2018-02-20] MEDS: Polyethylene Glycol 3350 17 GM Packet PO SCH (09:24)
[2018-02-20] MEDS: Hydrocortisone Acetate 25 MG Supp RECTAL SCH ×2 (09:24→21:06)
[2018-02-20] MEDS: Collagenase Oint 30 GM Tube TOPICAL SCH (09:25)
--- NOTE | 2018-02-20 12:21 | P.PNPL ---
Subjective Interval history: Patient remains on ventilator via trach. On CPAP with 35% FIO2. Afebrile. Physical Exam Vital signs: Vital Signs 02/19/18 14:00 02/19/18 15:49 02/19/18 16:00 Temperature 97.5 F L Pulse Rate 76 76 Respiratory Rate 19 19 Blood Pressure 111/56 L Pulse Oximetry 96 99 02/19/18 18:00 02/19/18 19:49 02/19/18 20:00 Temperature 98.7 F Pulse Rate 76 87 Respiratory Rate 14 14 Blood Pressure 111/55 L Pulse Oximetry 98 96 02/19/18 22:00 02/19/18 23:49 02/20/18 00:00 Temperature 97.5 F L Pulse Rate 75 80 Respiratory Rate 22 21 Blood Pressure 116/58 L Pulse Oximetry 98 98 02/20/18 02:00 02/20/18 04:00 02/20/18 06:00 Temperature 97.7 F Pulse Rate 87 89 89 Respiratory Rate 25 H Blood Pressure 125/61 Pulse Oximetry 94 L 02/20/18 08:00 02/20/18 08:27 02/20/18 10:00 Temperature 97.7 F Pulse Rate 83 86 96 H Respiratory Rate 19 20 Blood Pressure 114/57 L Pulse Oximetry 95 Intake & Output 02/19/18 02/20/18 02/20/18 18:59 06:59 18:59 Intake Total 1049 / 1049 609 / 609 Output Total 2150 / 2150 1825 / 1825 Balance -1101 / -1101 -1216 / -1216 Weight 91.4 kg Intake: Tube Feeding 449 / 449 609 / 609 Water Bolus Amount 600 / 600 Output: Stool 200 / 200 0 / 0 Urine Amount (Catheter) 1949 / 1824 Indwelling Urethral Catheter 1949 Other: Date of Last Bowel Movement 02/19/18 02/19/18 02/20/18 - Constitutional no acute distress - Routine HEENT Exam Head: Present: normocephalic, atraumatic Eye: Present: EOMI, PERRL, normal accommodation, conjunctivae pink - Routine Neck Exam Present: supple, full ROM, trachea midline - Routine Respiratory Exam Present: patient mechanically ventilated, rhonchi - Routine Cardiovascular Exam Present: RRR, S1, S2 - Routine Abdominal Exam Present: soft, normoactive bowel sounds - Routine Extremities Exam Present: pulses intact - Routine Skin Exam Present: intact - Routine Neurological Exam Present: altered mental status - Urinary Catheter Management Straight Cath placed during this visit: yes Urethral indwelling: Yes Reason for continuing: Acute urinary retention Insertion date: 01/21/18 Insertion time: 08:00 Indwelling Urethral Catheter Cath placed during this visit: yes, but has since been removed by the nurse Urethral indwelling: Yes Reason for continuing: Hourly intake/output Insertion date: 01/21/18 Insertion time: 16:18 Removal date: 01/20/18 Removal time: 15:15 Assessment and Plan - Plan 1)Chronic resp failure 2)s/p trach and PEG tube placement 3)Encephalopathy 4)CVA 5)Anemia 6)CAD/NSTEMI 7)Wound of sacral region 8)Optic neuritis 9)Fungemia 10)UTI- E.coli ESBL, Pseudomonas 11)Klebsiella Pneumonia Plan Continue with vent support keep >92% Bronchodilators Pulm toilet, trach care SBT daily as vaishnavi Off abx, ID is following monitor for signs of infections ( fever, WBC) Continue Lasix 40mg BID Monitor CBC, INR on Coumadin with INR 2.8 today Nutrition support- On tube feeds @30ml/hr Poor prognosis Discussed with patient's daughter and updated her on his condition. Continue treatment plan.
[2018-02-21] MEDS: Insulin NovoLIN Regular Correctional Sugar Inj SQ SCH ×4 (02:03→19:36)
[2018-02-21 04:25] LABS: INR 2.5 Ratio; Prothrombin Time 25.1 sec (9.8-11.6)
[2018-02-21 05:28] LABS: Calcium 7.7 mg/dL (8.5-10.1); Carbon Dioxide 31.2 meq/L (21.0-32.0); Potassium 3.8 meq/L (3.5-5.1)
[2018-02-21] MEDS: Famotidine 20 MG Tablet PO SCH ×2 (08:03→20:34)
[2018-02-21] MEDS: Polyethylene Glycol 3350 17 GM Packet PO SCH (08:05)
[2018-02-21] MEDS: Hydrocortisone Acetate 25 MG Supp RECTAL SCH ×2 (08:05→20:34)
[2018-02-21] MEDS: Collagenase Oint 30 GM Tube TOPICAL SCH (08:05)
[2018-02-21] MEDS: Insulin Detemir Inj 1,000 UNIT/10 ML Vial SQ SCH ×2 (08:05→20:41)
--- NOTE | 2018-02-21 08:23 | P.PNCC ---
Subjective Subjective Remarks/Hospital Course: This is a 77-year-old male who initially presented with vision changes and concern for optic neuritis versus temporal arteritis. His initial presentation was on 10/14. His hospital course has been complicated by an NSTEMI with troponins which peaked at 10, ESBL E. coli urinary tract infection, rectal bleeding suspected from bleeding hemorrhoids, acute anemia secondary to blood loss with hemoglobin started around 14 and is trended down to 9.7 this morning. On his initial MRA he was found to have significant atherosclerotic cerebrovascular disease in all vascular territories. Today, he had an acute mental status change and was obtunded. Rapid response and stroke alert was called. His initial NIH stroke scale was 22. Dr. goldstein had conversations with Dr. Ulloa and neurology as well as Dr. sierra with gastroenterology. GI feels comfortable with giving thrombolytics and neurology feels strongly that this patient would benefit from systemic IV TPA therapy. I evaluated the patient on arrival to the intensive care unit. The patient is arousable, but very somnolent. He is Romansh speaking, and it is very difficult to ascertain whether or not he can follow commands. He does move all extremities spontaneously, although it appears that his left side is weaker than his right. He has noted facial droop. CT head is negative for acute hemorrhage. CTA head neck is significant for the same multivessel cerebrovascular disease that was present on admission. Given the high-risk nature of the stroke as well as his acute anemia this hospitalization, in preparation for giving emergent IV systemic TPA, I placed an arterial line as well as a large-bore peripheral IV so that we could draw serial labs, monitor his hemoglobin, and give blood products if necessary. I also had an additional discussion with the family where I reconfirmed that their goals were aggressive and they fully understood the significant risk of life-threatening hemorrhage associated with systemic TPA in a patient with new anemia and suspected GI bleeding. The family expressed understanding of his condition and understanding of the heightened risk of life-threatening bleeding, but still urged that we needed to get TPA. Immediately after giving IV TPA, patient had a tonic clonic seizure (witnessed on EEG) and became obtunded with acute hypoxic and hypercarbic respiratory failure and was emergently intubated (see separate procedure note for details). 11/10: remains intubated. encephalopathy persists. hgb stable s/p TPA. ~350cc bloody OG tube output, but this is slowing down. 11/11: more awake. on SBT. follows commands. 11/12: remains extubated. off vasopressors. no changes in mental status. 11/18/17 CCM Reconsult Note Patient was transferred to ICU today after a Halicat was called for AMS, hypoxia , high fever. Apparently patient was lethargic since a.m. in the last hour had been unresponsive and hence Halicat was called. Patient had a fever of 101.4 in a.m., T-max is 101.6. I immediately evaluated the patient in the ICU. Patient is completely unresponsive, oxygen saturation 87% on 4 L nasal cannula. Hypopneic. No response to deep pain. Patient was confirmed to be a full code and I proceeded with endotracheal intubation place him on mechanical ventilation as patient was not protecting airway. More history was obtained from discussion with ID Dr. Jalloh. She indicated patient had been increasingly lethargic with fever and also had urinary retention.She has discontinued Ertapenem, and started on meropenem, vancomycin and micafungin. Cultures have been sent and are pending now. Source of sepsis appears to be aspiration pneumonia versus UTI. Repeat UA and panculture pending at this time. Patient was borderline hypotensive prior to intubation and I have started on Levophed to avoid hypotension post intubation. Receiving 1 L normal saline bolus now, give additional fluid bolus if patient requires continued Levophed will place central line 11/19: remains intubated. holding aggrenox for possible thoracentesis today, but family hesitant to consent with concerns over bleeding risk. Cr remains elevated. discussion with Dr. Bernal, unlikely to benefit currently from draining effusion, so at his recommendation, will proceed with attempted weaning from mechanical ventilation and treat effusion conservatively. 11/20: Overnight /early this a.m. ,the patient was noted to have large amount of rectal bleeding. Aggrenox held since 11/18, 2/2 reintubation. Type and screen ordered. Serial H&H currently be performed. Hemodynamically stable. GI has been reconsulted. Protonix previously given PRN, will schedule BID. Patient was reintubated emergently 11/18, plan for continue CPAP trials. Tube feedings until evaluation by GI. ASA placed on hold , in the setting of GI bleeding. 11/21: EGD and colonoscopy performed yesterday. Patient was noted to be constipated ,disimpacted per GI. Patient noted to have hemorrhoids which was clipped. No further bleeding throughout the night. Chest x-ray showed improvement. CPAP trials initiated this a.m.. ASA 81 mg resumed. 11/22: Patient tolerated CPAP trials approximately 13 hours yesterday. Initiation of tube feeds per GI yesterday, no residuals. This am , family concerned patient not responsive. CT brain , ammonia level and EEG pending. Neurology has been reconsulted. Upon my entering the room, this afternoon, the patient was awake, tracking and squeezing my hand upon commands, with right hand. The patient received 1 u PRBC for Hgb 7.2. Post transfusion CBC pending. Plan for quantification of pleural fluid for possible thoracentesis in a.m.. 11/23: No acute events overnight. Patient remains off all sedation. Noted spontaneous eye opening, tracking following commands squeezing hands right greater than left. Neurology following plan for MRI this a.m., repeat EEG pending. Hemoglobin stable this a.m.. Chest x-ray slight improvement, plan for quantification via ultrasound of pleural effusions for possible thoracentesis today. 3 failed attempts at CPAP trials yesterday. 1548-MRI resulted findings consistent of small areas of acute cortical infarct, new since 11/09/2017. I contacted neurology, Dr. Geronimo informed of results. After Dr. Palma's review of imaging and records, it was determined most likely cardioembolic since is affecting both sides and failure with aspirin and Persantine. Ischemic stroke heparin protocol initiated. Careful review secondary to patient history of GI bleed 11/20, thought to be emanating from hemorrhoid ,however due to poor suboptimal prep, they unable to have optimal visualization per Dr. Jones. 11/24: Late entry note. Patient seen and evaluated 614. No acute events overnight. Patient continues on heparin infusion no active signs of bleeding. PTT within therapeutic range. The patient is less responsive this a.m., spontaneous eye opening, not following my commands. Not moving his extremities spontaneously for me as previously performed yesterday. tube feeds reinitiated. Chest x-ray showed further improvement in aeration of lungs the patient continues on FiO2 of 0.35. Plan for CPAP trials today. 11/25: No acute events overnight. Neurological status unchanged. Spontaneous eye opening patient continues not following any commands. Dr. Geronimo at bedside evaluating patient, no change. Patient tolerated CPAP trials approximately 12 hours yesterday. Tolerating tube feeds. Chest x-ray remains unchanged from yesterday. Hemoccult stool negative. Heparin infusion continued. family at bedside. 11/26: Late entry note. Patient seen at 1240pm. Last night the patient was noted to be continuously hyperglycemic. Levemir added to medication regimen 10 mg/day hemoglobin dropped 2 g/dL in 2 days hemoglobin now 7.7, patient to be transfused 1 unit packed red blood. No obvious signs of bleeding Hemoccult was negative. Patient continues on heparin infusion, patient may require tracheostomy and PEG in the near future . Plan to transition to p.o. anticoagulation post procedures. Neurologically the status is unchanged the patient is opens eyes spontaneously no movement of extremities upon my evaluation. Continued CPAP trials currently greater than 6 hours. 11/27: At 1000am, the patient was noted to have melena, approximated at 150 cc per RN evaluation. Heparin infusion discontinued/placed on hold at 10 AM. Stool for Hemoccult blood sent, GI was contacted and informed of the above events. Stat CT of the abdomen and pelvis with p.o. contrast ordered, results pending. Patient previously had been tolerating trickle feeds at 10 cc an hour with no residuals, after initiation of Reglan 5 mg every 8 hours yesterday. Neurologically the patient status is unchanged. Patient does have spontaneous eye opening but does not follow my commands and does not move extremities. Patient's daughter is at bedside, discussed the above events at which she was present for, she is requesting a repeat colonoscopy. I informed her that a CT of the abdomen and pelvis will be obtained, serial hemoglobin will be evaluated and if needed transfusion will be provided and gastroenterology has been contacted and will determine further management if an invasive procedure is required. Hemoglobin continues to be monitored serially, results pending for 10 AM. The patient received 1 unit packed red blood cells, and current hemoglobin trended overnight 8.9 to 8.2 this a.m., posttransfusion. 11/28: hgb continues to decline despite being off heparin. no additional GI interventions are available at this time. clearly the patient has failed anticoagulation with 2 life-threatening bleeding episodes. Although it is clear he may have additional strokes off anticoagulation, we have clear evidence that we are hurting his overall clinical care with his anticoagulation. I explained this at length to the daughter and medical decision maker. however, she insists that she would rather see him of bleeding rather than have any more strokes , and insists that "we can always keep giving him blood". I explained that blood is not without risk, and there is significant risk to anticoagulation, but she is insistent that he be given anticoagulation to prevent further strokes and she has weighed the risks and benefits after having full informed consent, insists upon us restarting the heparin drip. At her insistence, I have restarted it. In addition, I have counseled her that I do not think he will survive this hospitalization, and he will require tracheostomy for further aggressive care. She states that we are not at "day 14" on the vent, and it is not time for a tracheostomy yet. This is a second intubation and we are certainly at risk for complications from endotracheal intubation, and tracheostomy would be the most appropriate next step for this patient, but the family is refusing until WednesdayDecember 01. 11/29 Patient remains intubated, on no sedation. Afebrile. 11/30 No events overnight. Patient tolerated CPAP for most of day yesterday. Remains on Heparin drip. 12/01 Patient remains intubated tolerated CPAP for several hrs yesterday. s/p CT guided right thoracentesis with removal 500ml pleural fluid. On Heparin drip 12/02 No events overnight. Heparin drip stopped this morning for trach and PEG placement today. Afebrile. 12/03 Patient s/p trach and PEG tube placement yesterday. Had bleeding from around trach and PEG tube insertion sites Heparin drip held last night. s/p transfusion 1u PRBC yesterday Hgb 8.0 this morning. Afebrile. On no sedation. 12/04: Continues to have bruising from PEG tube insertion site. Trach site appears to have stopped. Hemoglobin 7 the same receiving 1 unit FFP and 1 PRBCs. Tube feeds of been resumed. On no sedation. 12/05: Afebrile. No further bleeding noted from the tracheostomy site. Overnight reported by the RN that the PEG tube site continues to bleed Surgicel was placed around the opening, small amount of bleeding still noted. Patient hemoglobin remained 7 patient to be transfused 1 unit PRBC's fibrinogen level pending INR within normal limits. 12/06 Patient s/p transfusion 2u PRBC yesterday Hgb 9.5 this morning from 7.2 last night. No bleeding from trach site however patient still having rectal bleeding. 12/07 No events overnight. On ventilator via trach Hgb 9.8 this morning for colonoscopy today. 12/08: seen and examined around 06:30am. no significant change in mental status. hgb 8.9 this AM. remains on heparin drip at [facility]. 12/09: no improvements or changes. very deconditioned. garcia has remained in without clear indication. had 1 episode of urinary retention, but this is a clear source of infection and an additional serious infection would certainly be life-threatening. 12/10 Patient is now on TP's with 28% FIO2, Afebrile. On Heparin drip. 12/11: remains on t-piece x > 48h. no change in neuro exam. remains on heparin drip with stable hgb 7.8. Subjective: 12/12: asked to see patient again today by the hospitalist service for change in condition. I have evaluated the patient and he does not clinically appear any different than yesterday. HR actually lower than yesterday. bladder scan suggestive of 600cc retention. patient has had urinary retention before, although has also had multiple hospital acquired urinary tract infections. risk/ benefit at this time would be in favor of serial q6h straight catheterizations. remains hemodynamically stable. some emesis today and evidence of ileus. 12/31 Reconsult for resp distress Patient is 77 yo with chronic resp failure, trach/PEG tube placement, [place] [facility] [place] trach changes to #6 and patient was placed on mechanical ventilation. CXR showed increasing consolidation patient was given Lasix prior [place] [facility] 01/01 Patient is on ventilator via trach. Afebrile. 01/02 No events overnight. On no drips, Afebrile, CPAP 15/5 with 35% FIO2 overnight. 01/03 Remained on TP breathing comfortably. CXR shows bilateral effusions. Will get CT chest. Give single dose of lasix. ID consulted and following, no fever in 24 hours 01/04: Remains unresponsive, fever trending down. Sputum culture now growing Klebsiella and ESBL E. coli. Urine culture and wound culture also growing ESBL E. coli. Chest tube placed on the right side yesterday with 1.35 L output since placement. Urine output excellent with single dose of Lasix 2.5 L in 24 hours. No fever in 24 hours. Repeat 40 mg IV Lasix 1 [facility] RECONSULT NOTE 02/08/18: Mr. Glynn is a 77-year-old man who is known to our service. In short, he was initially admitted with possible optic neuritis versus temporal arteritis in September. Care complicated by an STEMI, multiple infections with healthcare associated pneumonia UTIs. During hospitalization he also received TPA for Stroke, MRI of the brain performed on 12/24/2017, showed infarction involving the left corpus callosum and splenium of the corpus callosum. The patient had undergone tracheostomy placement. And since last month had been on hospitalist service and off ventilator. He is currently receiving Levaquin for stenotrophomonas infection, Diflucan for candidemia. Apparently patient was noted to aspirate earlier this a.m. At 7250 AM patient was found unresponsive pulseless rhythm asystole and CPR was started. Total 3 amp of epinephrine given. Patient had a cuff less trach with evidence of aspiration, large amount of tube feeds aspirated from tracheostomy tube. This was exchanged for a 8.0 Shiley tracheostomy cuffed. With improved bag and mask ventilation and after 3 epinephrine, 1 amp of calcium, 1 amp of bicarb, patient regained ROSC SUBJ 02/09/18: Remains very critical not on any sedation he is unresponsive eyes are spontaneously open but no tracking. Very slight withdrawal to pain on the upper extremities. CT of the head unremarkable. Currently borderline hypotensive off pressors. Received 2 units of PRBC for hemoglobin 6.6 yesterday. Prognosis remained poor. Neurology consulted per family request 02/10/18: Remains critical with no improvement in neuro status or clinical status. Eyes are spontaneously open but no response to threat no tracking. Neurology consulted MRI and EEG pending at this time. Currently remains on Levophed at 1 mcg/min. Chest x-ray with bilateral infiltrates sputum culture growing GNR. Na 155. Free water flushes and half-normal saline rate increased. 02/11: Remains unresponsive off all sedation. Osmolality slowly returning to baseline. Antibiotics appropriate for organism. Tube feeds tolerated at 50 mL' s per hour. Unable to wean from mechanical ventilation. 02/12: Osmolality slowly returning to baseline. Tube feeds now tolerated at 60 mL's per hour. Unable to wean from mechanical ventilation due to fatigue. 02/13: Placed on spontaneous breathing trial this morning but required 18 of pressure support to maintain an adequate minute volume. Will work from this point and attempt to wean pressure support over the next many days. Will place back on mechanical rate nightly. Anticoagulation is been particularly cumbersome and made more difficult by Diflucan. Will restart Coumadin again this morning as INR is declined to 2.2 02/14: Remains very weak. Essentially unresponsive. Tolerates brief periods of spontaneous breathing trial blood pressure support must be markedly elevated to the 1820 range. State of hydration gradually improving as osmolality declines and serum creatinine improves. Will continue hypotonic solutions IV. 02/15: Remains unresponsive. Continues to fail spontaneous breathing trials due to lack of respiratory effort. Suffers from tachypnea with an efficient small tidal volumes regardless of the amount of pressure support. 02/16: Onset of copious watery diarrhea is contaminating buttock wounds. We will insert a dignity shield system for fecal management. Remains unresponsive to noxious stimulation. He does have a weak cough reflex. 02/17: Patient is weaker on attempts at spontaneous breathing trials today. Patient remains unresponsive. Only reaction is a weak cough to suctioning. 02/18: Patient continues to do poorly on attempts at spontaneous breathing trials. Urine output is improved with diuresis, will follow renal function closely. 02/19: Albumin 1.1, further evidence that the patient is deteriorating. Responds to diuretics but prerenal azotemia quickly develops. 02/20: Ongoing attempts to remove excess soft tissue and pleural water consistently resolved and renal impairment. Unfortunately this is largely caused by his poor nutritional status. Despite sufficient nutritional support he continues to deteriorate clinically. 02/21: no improvements in function. still grossly anasarca. Cr worsening again. hypernatremia persists. Objective Vital Signs / I&O: Vital Signs 02/20/18 08:27 02/20/18 10:00 02/20/18 12:00 Temperature 36.4 C L Pulse Rate 86 96 H 96 H Respiratory Rate 20 27 H Blood Pressure 120/67 Pulse Oximetry 97 02/20/18 14:00 02/20/18 16:00 02/20/18 18:00 Temperature 36.5 C Pulse Rate 90 98 H 96 H Respiratory Rate 16 Blood Pressure 132/75 Pulse Oximetry 98 02/20/18 20:00 02/20/18 20:48 02/20/18 22:00 Temperature 36.8 C Pulse Rate 108 H 102 H Respiratory Rate 18 20 Blood Pressure 120/66 Pulse Oximetry 96 95 02/21/18 00:00 02/21/18 00:33 02/21/18 02:00 Temperature 37.1 C Pulse Rate 118 H 106 H Respiratory Rate 18 21 Blood Pressure 110/70 Pulse Oximetry 96 95 02/21/18 04:00 02/21/18 04:18 02/21/18 06:00 Temperature 36.9 C Pulse Rate 96 H 89 Respiratory Rate 17 17 Blood Pressure 121/60 Pulse Oximetry 96 95 Intake & Output 02/20/18 02/21/18 02/21/18 18:59 06:59 18:59 Intake Total 1055 / 1055 1041 / 1041 Output Total 1800 / 1800 1650 / 1650 Balance -745 / -745 -609 / -609 Weight 85 kg Intake: IV 0 / 0 1/2 Normal Saline Inj 1,000 ML 0 / 0 @ 20 mls/hr IV.CONT .Q24H FOR[facility]LY [facility], [facility]–1983 Rx#:[id number] Tube Feeding 455 / 455 441 / 441 Water Bolus Amount 600 / 600 600 / 600 Output: Stool 0 / 0 Urine Amount (Catheter) 1800 / 1800 1650 / 1650 Indwelling Urethral Catheter 1800 / 1800 1650 / 1650 Other: Date of Last Bowel Movement 02/20/18 02/20/18 Result Diagrams: 02/19/18 04:45 02/21/18 04:00 Objective Remarks: GENERAL: Patient is 77 yo encephalopathic, unresponsive on the vent. Eyes are closed. SKIN: Warm and dry. Stage IV sacral decubitus, surrounding buttocks excoriation. HEAD: Normocephalic. Tongue moist. EYES: No scleral icterus. No injection. PRABHA. NECK: Cuffed tracheostomy tube in place. Moderate secretions persist. CARDIOVASCULAR: normal rate, regular rhythm. No JVD. RESPIRATORY: Breath sounds equal bilaterally. Persistent scattered rhonchi GASTROINTESTINAL: Abdomen soft. PEG tube site clean and dry MUSCULOSKELETAL: No cyanosis. Generalized edema. NEURO: Eyes are closed. Unresponsive to stimulation in all 4 limbs. Weak cough reflex. Assessment and Plan - Assessment and Plan Plan: Assessment: Asystole/Cardiac arrest Worsening encephalopathy most likely anoxia contributing Aspiration pneumonia Acute on chronic hypoxemic and hypercapnic resp failure Combined shock, septic and cardiogenic Healthcare associated pneumonia, stenotrophomonas Candidemia UTI with ESBL E. coli Hypernatremia CVA Anemia requiring transfusion Sacral decubitus ulcer s/p NSTEMI Optic neuritis Status post tracheostomy and PEG tube placement Acute protein calorie malnutrition- severe Plan: Impression: Neuro -Acute worsening of encephalopathy secondary to systolic cardiac arrest, anoxia -CT head 02/08/[address] Pereira reconsulted per family request -History of L ENID infarct. Status post systemic TPA on November 09 -Neuropsychology has followed. Continue Ritalin -Optic neuritis. Status post treatment with IV hydrocortisone -Remains unresponsive. CV: -Asystole/cardiac arrest seems secondary to hypoxia and hypercapnia from severe aspiration -Levophed to keep map above 65 -s/p IV fluid normal saline 2 L bolus, 2U PRBC -Increase half-normal saline to 50 ml per hour due to hypernatremia, free water flushes to 300 mL every 6 -Continue Coumadin -Echo 10/19: LV systolic function is moderately reduced, EF 40-45%. Cardiology has followed Dr. Hernández -Jez 2mg daily and Coreg 3.125mg BID on hold due to hypotension. On Lipitor 80mg qhs Pulm: -Cardiac arrest seems to be secondary to respiratory arrest. Evidence of aspiration at the time of arrest -Cuff less tracheostomy tube removed and new Shiley 8 cuffed tracheostomy placed 02/08/18 -PRVC/AC ventilation. DuoNeb every 6 hours scheduled and as needed -Failed CPAP due to apnea -ICU vent bundle. Pulm toilet, trach care. -GNR in sputum culture, On Levaquin for stenotrophomonas, Diflucan for candidemia, meropenem for previous ESBL E Coli HCAP -Antibiotic and antifungal coverage remains appropriate. GI -Currently tube feeds at goal. continue as tolerated. -On Pepcid 10mg BID -Free water flushes 300 mils every 6 hours -Having BMs -Tube feeds at 60 mL's per hour 02/12. -Tube feeds tolerated with acceptable gastric residual however profuse diarrhea has started. : -Monitor renal function, electrolytes replacement per protocol ID -Patient was receiving Levaquin for stenotrophomonas, Diflucan for candidemia -Added meropenem 02/08/18 for previous ESBL E. coli HCAP -Previous UTI with ESBL E. coli, Previous healthcare associated pneumonia with Klebsiella and ESBL E. coli -F/U blood and sputum culture and urine culture. GNR in sputum 02/08 -ID Dr. Jalloh following Skin -Sacral wound-Seen by Plastic surgery; debridement declined per patient's family -Wound care is following- apply dressings per wound management recommendations Heme: -Monitor hemoglobin closely. Status post 2 units PRBC on 02/08/2018 -Previous GI bleed; Status post EGD colonoscopy. GI has signed off, patient with healed rectal ulcers and hemorrhoids. -INR therapeutic -If recurrent anemia will reconsult GI Endo -On SSI. Levemir for glycemic control, increasing dosage. GI prophylaxis- on Pepcid DVT prophylaxis- On Coumadin hold due to INR 3.9, restarted and adjusted per pharmacy consultation. Overall impression: Patient remains critically ill after aspiration with hypoxemic and hypercarbic respiratory failure leading to asystolic cardiac arrest. Ten minutes of CPR with return of spontaneous circulation after aggressive resuscitation following CPR, patient remains hypoxemic and encephalopathy. Remains unresponsive, weak respiratory effort is ineffective during spontaneous trials, unable to begin weaning from ventilator. Prognosis remains poor. Family unrealistic with goals of care and press on for aggressive measures. no meaningful improvements in months.
--- NOTE | 2018-02-21 16:01 | P.PN ---
Subjective Interval history: on the vent does not communicate unresponsive Physical Exam Vital signs: Vital Signs 02/20/18 18:00 02/20/18 20:00 02/20/18 20:48 Temperature 98.2 F Pulse Rate 96 H 108 H Respiratory Rate 18 20 Blood Pressure 120/66 Pulse Oximetry 96 95 02/20/18 22:00 02/21/18 00:00 02/21/18 00:33 Temperature 98.7 F Pulse Rate 102 H 118 H Respiratory Rate 18 21 Blood Pressure 110/70 Pulse Oximetry 96 95 02/21/18 02:00 02/21/18 04:00 02/21/18 04:18 Temperature 98.4 F Pulse Rate 106 H 96 H Respiratory Rate 17 17 Blood Pressure 121/60 Pulse Oximetry 96 95 02/21/18 06:00 02/21/18 08:06 02/21/18 12:03 Temperature Pulse Rate 89 Respiratory Rate 28 H 21 Blood Pressure Pulse Oximetry 97 95 Intake & Output 02/20/18 02/21/18 02/21/18 18:59 06:59 18:59 Intake Total 1055 / 1055 1041 / 1041 Output Total 1800 / 1800 1650 / 1650 Balance -745 / -745 -609 / -609 Weight 85 kg Intake: IV 0 / 0 1/2 Normal Saline Inj 1,000 ML 0 / 0 @ 20 mls/hr IV.CONT .Q24H [facility] Rx#:[id number] Tube Feeding 455 / 455 441 / 441 Water Bolus Amount 600 / 600 600 / 600 Output: Stool 0 / 0 Urine Amount (Catheter) 1800 / 1800 1650 / 1650 Indwelling Urethral Catheter 1800 / 1800 1650 / 1650 Other: Date of Last Bowel Movement 02/20/18 02/20/18 Narrative: GENERAL:on vent support male patient, UNRESPONSIVE. . SKIN: Warm and dry. +sacral decub per wound care notes. HEAD: Atraumatic. Normocephalic. EYES: Pupils equal and round. No scleral icterus. No injection or drainage. ENT: No nasal bleeding or discharge. Mucous membranes pink and moist. NECK: Trachea midline. Trach in place. CARDIOVASCULAR: Regular rate and rhythm. RESPIRATORY: No accessory muscle use. Clear to auscultation. Breath sounds equal bilaterally. GASTROINTESTINAL: Abdomen soft, non-tender, nondistended. PEG in place. GENITOURINARY: [place] in place - placed 01/21 MUSCULOSKELETAL: Extremities without clubbing, cyanosis, or edema. NEUROLOGICAL: Awake. Unable to follow commands. Nonverbal. PSYCHIATRIC: Calm. - Urinary Catheter Management Straight Cath placed during this visit: yes Urethral indwelling: Yes Reason for continuing: Acute urinary retention Insertion date: 01/21/18 Insertion time: 08:00 Indwelling Urethral Catheter Cath placed during this visit: yes, but has since been removed by the nurse Urethral indwelling: Yes Reason for continuing: Hourly intake/output Insertion date: 01/21/18 Insertion time: 16:18 Removal date: 01/20/18 Removal time: 15:15 Results - Labs CBC & Chem 7: 02/19/18 04:45 02/21/18 04:00 Laboratory Results - last 24 hr 02/20/18 02/20/18 02/21/18 18: 20:38 01:56 PT INR Sodium Potassium Chloride Carbon Dioxide Anion Gap BUN Creatinine Estimated GFR POC Glucose 208 H 234 H 269 H Random Glucose Calcium 02/21/18 02/21/18 02/21/18 04:00 04:00 11:50 PT 25.1 H INR 2.5 Sodium 151 H Potassium 3.8 Chloride 111 H Carbon Dioxide 31.2 Anion Gap 9 BUN 72 H Creatinine 1.33 H Estimated GFR 52 L POC Glucose 220 H Random Glucose 212 H D Calcium 7.7 L Microbiology 02/19/18 17:00 Wound - Leg Gram Stain - Final 02/19/18 17:00 Wound - Leg Wound Culture - Preliminary Pseudomonas species Assessment and Plan - Plan RESPIRATORY FAILURE S/P cva S/P CA S/P trach ACUTE ASPIRATION plan VENT SUPPORT PULM TOILET ANTIBX PER ID OUTLOOK POOR f.u cxray
--- NOTE | 2018-02-21 19:31 | XR ---
EXAM DATE: 02/21/2018 7:28 PM EDT AGE/SEX: 77 years / Male INDICATIONS: COPD CLINICAL DATA: This is the patient's subsequent encounter. Patient reports that signs and symptoms h ave been present for 3 days and indicates a pain score of Nonresponsive. MEDICAL/SURGICAL HISTORY: Non-responsive. Non-responsive. COMPARISON: C, CHEST 1V SINGLE AP, 02/11/2018. . FINDINGS: There is a tracheostomy tube in place. There is a right internal jugular central line in place with t he tip overlying the SVC. The heart size is normal. The lungs are essentially diffuse increased inter stitial markings. There is mild bilateral pleural effusions. CONCLUSION: Suspected diffuse edema. Mild bilateral pleural effusions. Electronically signed by: Antolin Botello MD 02/21/2018 7:30 PM EDT
[2018-02-21] MEDS: Sodium Chloride 0.45 % Inj 1,000 ML IV.CONT SCH (20:34)
[2018-02-22] MEDS: Insulin NovoLIN Regular Correctional Sugar Inj SQ SCH ×4 (02:18→19:15)
[2018-02-22 05:05] LABS: INR 2.1 Ratio; Prothrombin Time 21.3 sec (9.8-11.6)
[2018-02-22] MEDS: Hydrocortisone Acetate 25 MG Supp RECTAL SCH ×2 (09:54→20:50)
[2018-02-22] MEDS: Insulin Detemir Inj 1,000 UNIT/10 ML Vial SQ SCH ×2 (09:55→21:00)
[2018-02-22] MEDS: Polyethylene Glycol 3350 17 GM Packet PO SCH (09:55)
[2018-02-22] MEDS: Famotidine 20 MG Tablet PO SCH ×2 (09:55→20:51)
[2018-02-22] MEDS: Collagenase Oint 30 GM Tube TOPICAL SCH (09:55)
--- NOTE | 2018-02-22 10:40 | P.PNCC ---
Subjective Subjective Remarks/Hospital Course: This is a 77-year-old male who initially presented with vision changes and concern for optic neuritis versus temporal arteritis. His initial presentation was on 10/14. His hospital course has been complicated by an NSTEMI with troponins which peaked at 10, ESBL E. coli urinary tract infection, rectal bleeding suspected from bleeding hemorrhoids, acute anemia secondary to blood loss with hemoglobin started around 14 and is trended down to 9.7 this morning. On his initial MRA he was found to have significant atherosclerotic cerebrovascular disease in all vascular territories. Today, he had an acute mental status change and was obtunded. Rapid response and stroke alert was called. His initial NIH stroke scale was 22. Dr. goldstein had conversations with Dr. Ulloa and neurology as well as Dr. sierra with gastroenterology. GI feels comfortable with giving thrombolytics and neurology feels strongly that this patient would benefit from systemic IV TPA therapy. I evaluated the patient on arrival to the intensive care unit. The patient is arousable, but very somnolent. He is Hungarian speaking, and it is very difficult to ascertain whether or not he can follow commands. He does move all extremities spontaneously, although it appears that his left side is weaker than his right. He has noted facial droop. CT head is negative for acute hemorrhage. CTA head neck is significant for the same multivessel cerebrovascular disease that was present on admission. Given the high-risk nature of the stroke as well as his acute anemia this hospitalization, in preparation for giving emergent IV systemic TPA, I placed an arterial line as well as a large-bore peripheral IV so that we could draw serial labs, monitor his hemoglobin, and give blood products if necessary. I also had an additional discussion with the family where I reconfirmed that their goals were aggressive and they fully understood the significant risk of life-threatening hemorrhage associated with systemic TPA in a patient with new anemia and suspected GI bleeding. The family expressed understanding of his condition and understanding of the heightened risk of life-threatening bleeding, but still urged that we needed to get TPA. Immediately after giving IV TPA, patient had a tonic clonic seizure (witnessed on EEG) and became obtunded with acute hypoxic and hypercarbic respiratory failure and was emergently intubated (see separate procedure note for details). 11/10: remains intubated. encephalopathy persists. hgb stable s/p TPA. ~350cc bloody OG tube output, but this is slowing down. 11/11: more awake. on SBT. follows commands. 11/12: remains extubated. off vasopressors. no changes in mental status. 11/18/17 CCM Reconsult Note Patient was transferred to ICU today after a Halicat was called for AMS, hypoxia , high fever. Apparently patient was lethargic since a.m. in the last hour had been unresponsive and hence Halicat was called. Patient had a fever of 101.4 in a.m., T-max is 101.6. I immediately evaluated the patient in the ICU. Patient is completely unresponsive, oxygen saturation 87% on 4 L nasal cannula. Hypopneic. No response to deep pain. Patient was confirmed to be a full code and I proceeded with endotracheal intubation place him on mechanical ventilation as patient was not protecting airway. More history was obtained from discussion with ID Dr. Jalloh. She indicated patient had been increasingly lethargic with fever and also had urinary retention.She has discontinued Ertapenem, and started on meropenem, vancomycin and micafungin. Cultures have been sent and are pending now. Source of sepsis appears to be aspiration pneumonia versus UTI. Repeat UA and panculture pending at this time. Patient was borderline hypotensive prior to intubation and I have started on Levophed to avoid hypotension post intubation. Receiving 1 L normal saline bolus now, give additional fluid bolus if patient requires continued Levophed will place central line 11/19: remains intubated. holding aggrenox for possible thoracentesis today, but family hesitant to consent with concerns over bleeding risk. Cr remains elevated. discussion with Dr. Bernal, unlikely to benefit currently from draining effusion, so at his recommendation, will proceed with attempted weaning from mechanical ventilation and treat effusion conservatively. 11/20: Overnight /early this a.m. ,the patient was noted to have large amount of rectal bleeding. Aggrenox held since 11/18, 2/2 reintubation. Type and screen ordered. Serial H&H currently be performed. Hemodynamically stable. GI has been reconsulted. Protonix previously given PRN, will schedule BID. Patient was reintubated emergently 11/18, plan for continue CPAP trials. Tube feedings until evaluation by GI. ASA placed on hold , in the setting of GI bleeding. 11/21: EGD and colonoscopy performed yesterday. Patient was noted to be constipated ,disimpacted per GI. Patient noted to have hemorrhoids which was clipped. No further bleeding throughout the night. Chest x-ray showed improvement. CPAP trials initiated this a.m.. ASA 81 mg resumed. 11/22: Patient tolerated CPAP trials approximately 13 hours yesterday. Initiation of tube feeds per GI yesterday, no residuals. This am , family concerned patient not responsive. CT brain , ammonia level and EEG pending. Neurology has been reconsulted. Upon my entering the room, this afternoon, the patient was awake, tracking and squeezing my hand upon commands, with right hand. The patient received 1 u PRBC for Hgb 7.2. Post transfusion CBC pending. Plan for quantification of pleural fluid for possible thoracentesis in a.m.. 11/23: No acute events overnight. Patient remains off all sedation. Noted spontaneous eye opening, tracking following commands squeezing hands right greater than left. Neurology following plan for MRI this a.m., repeat EEG pending. Hemoglobin stable this a.m.. Chest x-ray slight improvement, plan for quantification via ultrasound of pleural effusions for possible thoracentesis today. 3 failed attempts at CPAP trials yesterday. 1548-MRI resulted findings consistent of small areas of acute cortical infarct, new since 11/09/2017. I contacted neurology, Dr. Geronimo informed of results. After Dr. Palma's review of imaging and records, it was determined most likely cardioembolic since is affecting both sides and failure with aspirin and Persantine. Ischemic stroke heparin protocol initiated. Careful review secondary to patient history of GI bleed 11/20, thought to be emanating from hemorrhoid ,however due to poor suboptimal prep, they unable to have optimal visualization per Dr. Jones. 11/24: Late entry note. Patient seen and evaluated 614. No acute events overnight. Patient continues on heparin infusion no active signs of bleeding. PTT within therapeutic range. The patient is less responsive this a.m., spontaneous eye opening, not following my commands. Not moving his extremities spontaneously for me as previously performed yesterday. tube feeds reinitiated. Chest x-ray showed further improvement in aeration of lungs the patient continues on FiO2 of 0.35. Plan for CPAP trials today. 11/25: No acute events overnight. Neurological status unchanged. Spontaneous eye opening patient continues not following any commands. Dr. Geronimo at bedside evaluating patient, no change. Patient tolerated CPAP trials approximately 12 hours yesterday. Tolerating tube feeds. Chest x-ray remains unchanged from yesterday. Hemoccult stool negative. Heparin infusion continued. family at bedside. 11/26: Late entry note. Patient seen at 1240pm. Last night the patient was noted to be continuously hyperglycemic. Levemir added to medication regimen 10 mg/day hemoglobin dropped 2 g/dL in 2 days hemoglobin now 7.7, patient to be transfused 1 unit packed red blood. No obvious signs of bleeding Hemoccult was negative. Patient continues on heparin infusion, patient may require tracheostomy and PEG in the near future . Plan to transition to p.o. anticoagulation post procedures. Neurologically the status is unchanged the patient is opens eyes spontaneously no movement of extremities upon my evaluation. Continued CPAP trials currently greater than 6 hours. 11/27: At 1000am, the patient was noted to have melena, approximated at 150 cc per RN evaluation. Heparin infusion discontinued/placed on hold at 10 AM. Stool for Hemoccult blood sent, GI was contacted and informed of the above events. Stat CT of the abdomen and pelvis with p.o. contrast ordered, results pending. Patient previously had been tolerating trickle feeds at 10 cc an hour with no residuals, after initiation of Reglan 5 mg every 8 hours yesterday. Neurologically the patient status is unchanged. Patient does have spontaneous eye opening but does not follow my commands and does not move extremities. Patient's daughter is at bedside, discussed the above events at which she was present for, she is requesting a repeat colonoscopy. I informed her that a CT of the abdomen and pelvis will be obtained, serial hemoglobin will be evaluated and if needed transfusion will be provided and gastroenterology has been contacted and will determine further management if an invasive procedure is required. Hemoglobin continues to be monitored serially, results pending for 10 AM. The patient received 1 unit packed red blood cells, and current hemoglobin trended overnight 8.9 to 8.2 this a.m., posttransfusion. 11/28: hgb continues to decline despite being off heparin. no additional GI interventions are available at this time. clearly the patient has failed anticoagulation with 2 life-threatening bleeding episodes. Although it is clear he may have additional strokes off anticoagulation, we have clear evidence that we are hurting his overall clinical care with his anticoagulation. I explained this at length to the daughter and medical decision maker. however, she insists that she would rather see him of bleeding rather than have any more strokes , and insists that "we can always keep giving him blood". I explained that blood is not without risk, and there is significant risk to anticoagulation, but she is insistent that he be given anticoagulation to prevent further strokes and she has weighed the risks and benefits after having full informed consent, insists upon us restarting the heparin drip. At her insistence, I have restarted it. In addition, I have counseled her that I do not think he will survive this hospitalization, and he will require tracheostomy for further aggressive care. She states that we are not at "day 14" on the vent, and it is not time for a tracheostomy yet. This is a second intubation and we are certainly at risk for complications from endotracheal intubation, and tracheostomy would be the most appropriate next step for this patient, but the family is refusing until WednesdayDecember 01. 11/29 Patient remains intubated, on no sedation. Afebrile. 11/30 No events overnight. Patient tolerated CPAP for most of day yesterday. Remains on Heparin drip. 12/01 Patient remains intubated tolerated CPAP for several hrs yesterday. s/p CT guided right thoracentesis with removal 500ml pleural fluid. On Heparin drip 12/02 No events overnight. Heparin drip stopped this morning for trach and PEG placement today. Afebrile. 12/03 Patient s/p trach and PEG tube placement yesterday. Had bleeding from around trach and PEG tube insertion sites Heparin drip held last night. s/p transfusion 1u PRBC yesterday Hgb 8.0 this morning. Afebrile. On no sedation. 12/04: Continues to have bruising from PEG tube insertion site. Trach site appears to have stopped. Hemoglobin 7 the same receiving 1 unit FFP and 1 PRBCs. Tube feeds of been resumed. On no sedation. 12/05: Afebrile. No further bleeding noted from the tracheostomy site. Overnight reported by the RN that the PEG tube site continues to bleed Surgicel was placed around the opening, small amount of bleeding still noted. Patient hemoglobin remained 7 patient to be transfused 1 unit PRBC's fibrinogen level pending INR within normal limits. 12/06 Patient s/p transfusion 2u PRBC yesterday Hgb 9.5 this morning from 7.2 last night. No bleeding from trach site however patient still having rectal bleeding. 12/07 No events overnight. On ventilator via trach Hgb 9.8 this morning for colonoscopy today. 12/08: seen and examined around 06:30am. no significant change in mental status. hgb 8.9 this AM. remains on heparin [facility]. 12/09: no improvements or changes. very deconditioned. garcia has remained in without clear indication. had 1 episode of urinary retention, but this is a clear source of infection and an additional serious infection would certainly be life-threatening. 12/10 Patient is now on TP's with 28% FIO2, Afebrile. On Heparin drip. 12/11: remains on t-piece x > 48h. no change in neuro exam. remains on heparin drip with stable hgb 7.8. Subjective: 12/12: asked to see patient again today by the hospitalist service for change in condition. I have evaluated the patient and he does not clinically appear any different than yesterday. HR actually lower than yesterday. bladder scan suggestive of 600cc retention. patient has had urinary retention before, although has also had multiple hospital acquired urinary tract infections. risk/ benefit at this time would be in favor of serial q6h straight catheterizations. remains hemodynamically stable. some emesis today and evidence of ileus. 12/31 Reconsult for resp distress Patient is 77 yo with chronic resp failure, trach/PEG tube placement, CVA transferred [place] [facility] for resp distress trach changes to #6 and patient was placed on mechanical ventilation. CXR showed increasing consolidation patient was given Lasix prior to arrival to [facility]. 01/01 Patient is on ventilator via trach. Afebrile. 01/02 No events overnight. On no drips, Afebrile, CPAP 15/5 with 35% FIO2 overnight. 01/03 Remained on TP breathing comfortably. CXR shows bilateral effusions. Will get CT chest. Give single dose of lasix. ID consulted and following, no fever in 24 hours 01/04: Remains unresponsive, fever trending down. Sputum culture now growing Klebsiella and ESBL E. coli. Urine culture and wound culture also growing ESBL E. coli. Chest tube placed on the right side yesterday with 1.35 L output since placement. Urine output excellent with single dose of Lasix 2.5 L in 24 hours. No fever in 24 hours. Repeat 40 mg IV Lasix 1 [facility] RECONSULT NOTE 02/08/18: Mr. Glynn is a 77-year-old man who is known to our service. In short, he was initially admitted with possible optic neuritis versus temporal arteritis in September. Care complicated by an STEMI, multiple infections with healthcare associated pneumonia UTIs. During hospitalization he also received TPA for Stroke, MRI of the brain performed on 12/24/2017, showed infarction involving the left corpus callosum and splenium of the corpus callosum. The patient had undergone tracheostomy placement. And since last month had been on hospitalist service and off ventilator. He is currently receiving Levaquin for stenotrophomonas infection, Diflucan for candidemia. Apparently patient was noted to aspirate earlier this a.m. At 7250 AM patient was found unresponsive pulseless rhythm asystole and CPR was started. Total 3 amp of epinephrine given. Patient had a cuff less trach with evidence of aspiration, large amount of tube feeds aspirated from tracheostomy tube. This was exchanged for a 8.0 Shiley tracheostomy cuffed. With improved bag and mask ventilation and after 3 epinephrine, 1 amp of calcium, 1 amp of bicarb, patient regained ROSC SUBJ 02/09/18: Remains very critical not on any sedation he is unresponsive eyes are spontaneously open but no tracking. Very slight withdrawal to pain on the upper extremities. CT of the head unremarkable. Currently borderline hypotensive off pressors. Received 2 units of PRBC for hemoglobin 6.6 yesterday. Prognosis remained poor. Neurology consulted per family request 02/10/18: Remains critical with no improvement in neuro status or clinical status. Eyes are spontaneously open but no response to threat no tracking. Neurology consulted MRI and EEG pending at this time. Currently remains on Levophed at 1 mcg/min. Chest x-ray with bilateral infiltrates sputum culture growing GNR. Na 155. Free water flushes and half-normal saline rate increased. 02/11: Remains unresponsive off all sedation. Osmolality slowly returning to baseline. Antibiotics appropriate for organism. Tube feeds tolerated at 50 mL' s per hour. Unable to wean from mechanical ventilation. 02/12: Osmolality slowly returning to baseline. Tube feeds now tolerated at 60 mL's per hour. Unable to wean from mechanical ventilation due to fatigue. 02/13: Placed on spontaneous breathing trial this morning but required 18 of pressure support to maintain an adequate minute volume. Will work from this point and attempt to wean pressure support over the next many days. Will place back on mechanical rate nightly. Anticoagulation is been particularly cumbersome and made more difficult by Diflucan. Will restart Coumadin again this morning as INR is declined to 2.2 02/14: Remains very weak. Essentially unresponsive. Tolerates brief periods of spontaneous breathing trial blood pressure support must be markedly elevated to the 1820 range. State of hydration gradually improving as osmolality declines and serum creatinine improves. Will continue hypotonic solutions IV. 02/15: Remains unresponsive. Continues to fail spontaneous breathing trials due to lack of respiratory effort. Suffers from tachypnea with an efficient small tidal volumes regardless of the amount of pressure support. 02/16: Onset of copious watery diarrhea is contaminating buttock wounds. We will insert a dignity shield system for fecal management. Remains unresponsive to noxious stimulation. He does have a weak cough reflex. 02/17: Patient is weaker on attempts at spontaneous breathing trials today. Patient remains unresponsive. Only reaction is a weak cough to suctioning. 02/18: Patient continues to do poorly on attempts at spontaneous breathing trials. Urine output is improved with diuresis, will follow renal function closely. 02/19: Albumin 1.1, further evidence that the patient is deteriorating. Responds to diuretics but prerenal azotemia quickly develops. 02/20: Ongoing attempts to remove excess soft tissue and pleural water consistently resolved and renal impairment. Unfortunately this is largely caused by his poor nutritional status. Despite sufficient nutritional support he continues to deteriorate clinically. 02/21: no improvements in function. still grossly anasarca. Cr worsening again. hypernatremia persists. 02/22: no changes. intermittently tachycardic. still gently diuresing. outlook poor. Objective Vital Signs / I&O: Vital Signs 02/21/18 12:00 02/21/18 12:03 02/21/18 14:00 Temperature 36.9 C Pulse Rate 110 H 102 H Respiratory Rate 18 21 Blood Pressure 112/60 Pulse Oximetry 93 L 95 02/21/18 16:00 02/21/18 16:12 02/21/18 18:00 Temperature 36.8 C Pulse Rate 110 H 102 H Respiratory Rate 21 25 H Blood Pressure 120/57 L Pulse Oximetry 92 L 95 02/21/18 19:30 02/21/18 20:00 02/21/18 22:00 Temperature 37.0 C Pulse Rate 106 H 102 H Respiratory Rate 16 21 Blood Pressure 125/62 Pulse Oximetry 95 96 02/21/18 22:24 02/22/18 00:00 02/22/18 01:51 Temperature 37.1 C Pulse Rate 100 H Respiratory Rate 20 15 22 Blood Pressure 94/53 L Pulse Oximetry 95 96 93 L 02/22/18 02:00 02/22/18 03:37 02/22/18 04:00 Temperature 37.2 C Pulse Rate 100 H 100 H Respiratory Rate 18 17 Blood Pressure 92/54 L Pulse Oximetry 94 L 93 L 02/22/18 06:00 02/22/18 07:53 Temperature Pulse Rate 98 H Respiratory Rate 19 Blood Pressure Pulse Oximetry 94 L Intake & Output 02/21/18 02/22/18 02/22/18 18:59 06:59 18:59 Intake Total 866 / 866 926 / 926 Output Total 1750 / 1750 676 / 676 Balance -884 / -884 250 / 250 Weight 85 kg Intake: Oral 0 / 0 Tube Feeding 536 / 536 476 / 476 Tube Irrigant 180 / 180 300 / 300 Water Bolus Amount 150 / 150 150 / 150 Output: Urine 675 / 675 Stool 0 / 0 0 / 0 Emesis 1 / 1 Urine Amount (Catheter) 1750 / 1750 Indwelling Urethral Catheter 1750 / 1750 Other: Date of Last Bowel Movement 02/20/18 02/19/18 # Bowel Movements 0 # Incontinent Bowel Movements 0 Result Diagrams: 02/19/18 04:45 02/21/18 04:00 Objective Remarks: GENERAL: Patient is 77 yo encephalopathic, unresponsive on the vent. Eyes are closed. SKIN: Warm and dry. Stage IV sacral decubitus, surrounding buttocks excoriation. HEAD: Normocephalic. Tongue moist. EYES: No scleral icterus. No injection. PRABHA. NECK: Cuffed tracheostomy tube in place. Moderate secretions persist. CARDIOVASCULAR: normal rate, regular rhythm. No JVD. RESPIRATORY: Breath sounds equal bilaterally. Persistent scattered rhonchi GASTROINTESTINAL: Abdomen soft. PEG tube site clean and dry MUSCULOSKELETAL: No cyanosis. Generalized edema. NEURO: Eyes are closed. Unresponsive to stimulation in all 4 limbs. Weak cough reflex. Assessment and Plan - Assessment and Plan Plan: Assessment: Asystole/Cardiac arrest Worsening encephalopathy most likely anoxia contributing Aspiration pneumonia Acute on chronic hypoxemic and hypercapnic resp failure Combined shock, septic and cardiogenic Healthcare associated pneumonia, stenotrophomonas Candidemia UTI with ESBL E. coli Hypernatremia CVA Anemia requiring transfusion Sacral decubitus ulcer s/p NSTEMI Optic neuritis Status post tracheostomy and PEG tube placement Acute protein calorie malnutrition- severe Plan: Impression: Neuro -Acute worsening of encephalopathy secondary to systolic cardiac arrest, anoxia -CT head 02/08/[address] Pereira reconsulted per family request -History of L ENID infarct. Status post systemic TPA on November 09 -Neuropsychology has followed. Continue Ritalin -Optic neuritis. Status post treatment with IV hydrocortisone -Remains unresponsive. CV: -Asystole/cardiac arrest seems secondary to hypoxia and hypercapnia from severe aspiration -s/p IV fluid normal saline 2 L bolus, 2U PRBC -half-normal saline to 50 ml per hour due to hypernatremia, free water flushes to 300 mL every 6 -Continue Coumadin -Echo 10/19: LV systolic function is moderately reduced, EF 40-45%. Cardiology has followed Dr. Betty Hammond 2mg daily and Coreg 3.125mg BID on hold due to hypotension. On Lipitor 80mg qhs Pulm: -Cardiac arrest seems to be secondary to respiratory arrest. Evidence of aspiration at the time of arrest -Cuff less tracheostomy tube removed and new Shiley 8 cuffed tracheostomy placed 02/08/18 -PRVC/AC ventilation. DuoNeb every 6 hours scheduled and as needed -Failed CPAP due to apnea -ICU vent bundle. Pulm toilet, trach care. -GNR in sputum culture, On Levaquin for stenotrophomonas, Diflucan for candidemia, meropenem for previous ESBL E Coli HCAP -Antibiotic and antifungal coverage remains appropriate. GI -Currently tube feeds at goal. continue as tolerated. -On Pepcid 10mg BID -Free water flushes 300 mils every 6 hours -Having BMs -Tube feeds at 60 mL's per hour 02/12. -Tube feeds tolerated with acceptable gastric residual however profuse diarrhea has started. -recheck cbc, bmp in AM. : -Monitor renal function, electrolytes replacement per protocol ID -Patient was receiving Levaquin for stenotrophomonas, Diflucan for candidemia -Added meropenem 02/08/18 for previous ESBL E. coli HCAP -Previous UTI with ESBL E. coli, Previous healthcare associated pneumonia with Klebsiella and ESBL E. coli -F/U blood and sputum culture and urine culture. GNR in sputum 02/08 -ID Dr. Jalloh following Skin -Sacral wound-Seen by Plastic surgery; debridement declined per patient's family -Wound care is following- apply dressings per wound management recommendations Heme: -Monitor hemoglobin closely. Status post 2 units PRBC on 02/08/2018 -Previous GI bleed; Status post EGD colonoscopy. GI has signed off, patient with healed rectal ulcers and hemorrhoids. -INR therapeutic -If recurrent anemia will reconsult GI Endo -On SSI. Levemir for glycemic control, increasing dosage. GI prophylaxis- on Pepcid DVT prophylaxis- On Coumadin hold due to INR 3.9, restarted and adjusted per pharmacy consultation. Overall impression: Patient remains critically ill after aspiration with hypoxemic and hypercarbic respiratory failure leading to asystolic cardiac arrest. Ten minutes of CPR with return of spontaneous circulation after aggressive resuscitation following CPR, patient remains hypoxemic and encephalopathy. Remains unresponsive, weak respiratory effort is ineffective during spontaneous trials, unable to begin weaning from ventilator. Prognosis remains poor. Family unrealistic with goals of care and press on for aggressive measures. no meaningful improvements in months.
--- NOTE | 2018-02-22 12:46 | P.DIET ---
Nutritional Evaluation Type of nutrition evaluation: follow-up Nutrition consult regarding: Tube Feeding Nutrition screening: Pressure Injury, MDC (01/26 reevaluate tube feedings as patient is vomiting) Screening comments: Transferred to [facility] s/p cardiac arrest and aspiration on 02/08 Objective - Diagnosis Optic Neuritis - Objective % IBW: 114 (UPQ=910#) Body Weight Used for Calculations: Actual (79.6kg) Energy Needs - Lower Range (kCal/kg): 30 Energy Needs - Upper Range (kCal/kg): 35 Lower Limit kCal/kg (kCals): 2,388 Upper Limit kCal/kg (kCals): 2,786 Lower Limit Protein Factor (Grams per Kg): 1.3 Upper Limit Protein Factor (Grams per Kg): 1.6 Lower Protein Needs (Protein): 103 Upper Protein Needs (Protein): 127 Fluid Factor (ml/kg): 30 Estimated Fluid Needs (ml): 2,388 Dietitian Reviewed in Medical Record: Curent medications, Intake & Output, Labs , Tube feeding, Wound/DTI Diet Order: TF Only Wound Care Note: WOCN dated 02/17: sacrum pressure injury Feeding - Current Tube Feeding Tube Feeding Product: Vital 1.5 Tube Feeding Method: Pump Tube Feeding Rate: 40 Tube Feeding Route: gastrostomy Assessment Assessment: Transferred to [facility] (02/08) d/t cardiac arrest and aspiration. Recommend Vital 1.5 @ 65 mls/hr to provide 2340 kcals, 105 gms protein and 1192 mls of free water. Labs, wts and clinical course reviewed. Wt changes noted. Recommendations: Vital 1.5 @ 65mls/hr goal Please update TF order Dietitian to Monitor: Lab values, Glucose level, Intake & Output, Tube feeding tolerance, Weight change, Wound/skin status, Medical course
[2018-02-22] MEDS: Sodium Chloride 0.45 % Inj 1,000 ML IV.CONT SCH (16:30)
--- NOTE | 2018-02-22 18:35 | P.PN ---
Subjective Interval history: no change unresponsive on the vent Physical Exam Vital signs: Vital Signs 02/21/18 19:30 02/21/18 20:00 02/21/18 22:00 Temperature 98.6 F Pulse Rate 106 H 102 H Respiratory Rate 16 21 Blood Pressure 125/62 Pulse Oximetry 95 96 02/21/18 22:24 02/22/18 00:00 02/22/18 01:51 Temperature 98.7 F Pulse Rate 100 H Respiratory Rate 20 15 22 Blood Pressure 94/53 L Pulse Oximetry 95 96 93 L 02/22/18 02:00 02/22/18 03:37 02/22/18 04:00 Temperature 98.9 F Pulse Rate 100 H 100 H Respiratory Rate 18 17 Blood Pressure 92/54 L Pulse Oximetry 94 L 93 L 02/22/18 06:00 02/22/18 07:53 02/22/18 08:00 Temperature 98.6 F Pulse Rate 98 H 98 H Respiratory Rate 19 24 Blood Pressure 113/59 L Pulse Oximetry 94 L 100 02/22/18 10:00 02/22/18 11:49 02/22/18 12:00 Temperature 97.2 F L Pulse Rate 88 96 H Respiratory Rate 24 Blood Pressure 101/56 L Pulse Oximetry 95 97 02/22/18 14:00 02/22/18 15:53 Temperature Pulse Rate 95 H Respiratory Rate 25 H Blood Pressure Pulse Oximetry Intake & Output 02/21/18 02/22/18 02/22/18 18:59 06:59 18:59 Intake Total 866 / 866 926 / 926 700 / 700 Output Total 1750 / 1750 676 / 676 Balance -884 / -884 250 / 250 700 / 700 Weight 85 kg Intake: IV 700 / 700 1/2 Normal Saline Inj 1,000 ML 700 / 700 @ 50 mls/hr IV.CONT .Q20H [facility] Rx#:[id number] Oral 0 / 0 Tube Feeding 536 / 536 476 / 476 Tube Irrigant 180 / 180 300 / 300 Water Bolus Amount 150 / 150 150 / 150 Output: Urine 675 / 675 Stool 0 / 0 0 / 0 Emesis 1 / 1 Urine Amount (Catheter) 1750 / 1750 Indwelling Urethral Catheter 1750 / 1750 Other: Date of Last Bowel Movement 02/20/18 02/19/18 # Bowel Movements 0 # Incontinent Bowel Movements 0 Narrative: GENERAL:on vent support male patient, UNRESPONSIVE. . SKIN: Warm and dry. +sacral decub per wound care notes. HEAD: Atraumatic. Normocephalic. EYES: Pupils equal and round. No scleral icterus. No injection or drainage. ENT: No nasal bleeding or discharge. Mucous membranes pink and moist. NECK: Trachea midline. Trach in place. CARDIOVASCULAR: Regular rate and rhythm. RESPIRATORY: No accessory muscle use. Clear to auscultation. Breath sounds equal bilaterally. GASTROINTESTINAL: Abdomen soft, non-tender, nondistended. PEG in place. GENITOURINARY: [place] in place - placed 01/21 MUSCULOSKELETAL: Extremities without clubbing, cyanosis, or edema. NEUROLOGICAL: Awake. Unable to follow commands. Nonverbal. PSYCHIATRIC: Calm. - Urinary Catheter Management Straight Cath placed during this visit: yes Urethral indwelling: Yes Reason for continuing: Acute urinary retention Insertion date: 01/21/18 Insertion time: 08:00 Indwelling Urethral Catheter Cath placed during this visit: yes, but has since been removed by the nurse Urethral indwelling: Yes Reason for continuing: Hourly intake/output Insertion date: 01/21/18 Insertion time: 16:18 Removal date: 01/20/18 Removal time: 15:15 Results - Labs CBC & Chem 7: 02/19/18 04:45 02/21/18 04:00 Laboratory Results - last 24 hr 02/21/18 02/21/18 02/22/18 18:26 20:38 02:15 PT INR POC Glucose 213 H 195 H 152 H 02/22/18 02/22/18 02/22/18 04:35 05:47 09:24 PT 21.3 H INR 2.1 POC Glucose 119 H 112 H 02/22/18 11:50 PT INR POC Glucose 112 H Microbiology 02/08/18 13:15 Blood - Peripheral Blood Fungal Culture - Preliminary No growth in 2 weeks 02/08/18 13:15 Blood - Peripheral Blood Fungal Culture - Final 02/19/18 17:00 Wound - Leg Gram Stain - Final 02/19/18 17:00 Wound - Leg Wound Culture - Preliminary Pseudomonas species - Imaging Impressions Chest X-Ray 02/21/18 16:02 CONCLUSION: Suspected diffuse edema. Mild bilateral pleural effusions. Assessment and Plan - Plan RESPIRATORY FAILURE S/P cva S/P NV S/P trach ACUTE ASPIRATION plan VENT SUPPORT PULM TOILET ANTIBX PER ID OUTLOOK POOR
[2018-02-23] MEDS: Insulin NovoLIN Regular Correctional Sugar Inj SQ SCH ×5 (00:23→23:57)
[2018-02-23 05:20] LABS: Mean Corpuscular HGB Conc 32.3 % (32.0-36.0); Mean Corpuscular Hemoglobin 26.6 pg (27.0-34.0); Mean Corpuscular Volume 82.2 fL (80.0-100.0); Mean Platelet Volume 9.3 fL (7.0-11.0); Platelet Count 232 th/mm3 (150-450); Red Blood Count 2.48 mil/mm3 (4.50-5.90); Red Cell Distribution Width 20.3 % (11.6-17.2); White Blood Count 9.1 th/mm3 (4.0-11.0)
[2018-02-23 05:31] LABS: Hematocrit 20.3 % (39.0-51.0); Hemoglobin 6.6 gm/dL (13.0-17.0)
[2018-02-23 05:39] LABS: Calcium 7.7 mg/dL (8.5-10.1); Carbon Dioxide 31.4 meq/L (21.0-32.0); Potassium 3.9 meq/L (3.5-5.1)
[2018-02-23 05:53] LABS: INR 1.8 Ratio; Prothrombin Time 18.4 sec (9.8-11.6)
[2018-02-23] MEDS ORDERED: Sodium Chlor 0.9% Inj 250 ML IV.SIG SCH (06:00)
[2018-02-23] MEDS: Polyethylene Glycol 3350 17 GM Packet PO SCH (08:39)
[2018-02-23] MEDS: Famotidine 20 MG Tablet PO SCH ×2 (08:39→20:40)
[2018-02-23] MEDS: Hydrocortisone Acetate 25 MG Supp RECTAL SCH ×2 (08:40→20:41)
[2018-02-23] MEDS: Insulin Detemir Inj 1,000 UNIT/10 ML Vial SQ SCH ×2 (09:17→21:13)
[2018-02-23] MEDS: Collagenase Oint 30 GM Tube TOPICAL SCH (09:18)
[2018-02-23] MEDS: Sodium Chloride 0.45 % Inj 1,000 ML IV.CONT SCH (11:21)
--- NOTE | 2018-02-23 13:07 | P.PNID ---
Subjective Remarks: remains on CPAP, minimal responsiveness RN reports a lot of secretions no fever, but hypothermic growing PSAE in the wound Antibiotics: NONE Lines: Lines ok Past Medical History: reviewed Allergies/Adverse Reactions: Allergies Glucerna 1.5 Adverse Reaction (Uncoded 02/09/18 12:04) Vomiting Objective Vital Signs 02/22/18 14:00 02/22/18 15:53 02/22/18 16:00 Temperature 98.6 F Pulse Rate 95 H 94 H Respiratory Rate 25 H 23 Blood Pressure 100/55 L Pulse Oximetry 97 02/22/18 18:00 02/22/18 20:00 02/22/18 21:10 Temperature 97.7 F Pulse Rate 90 92 H Respiratory Rate 19 17 Blood Pressure 95/55 L Pulse Oximetry 95 97 02/22/18 22:00 02/22/18 22:32 02/23/18 00:00 Temperature 97.7 F Pulse Rate 92 H 94 H Respiratory Rate 17 14 Blood Pressure 107/61 Pulse Oximetry 95 96 02/23/18 01:53 02/23/18 02:00 02/23/18 04:00 Temperature 97.5 F L Pulse Rate 90 90 Respiratory Rate 16 19 Blood Pressure 90/52 L Pulse Oximetry 94 L 97 02/23/18 04:16 02/23/18 06:00 02/23/18 08:00 Temperature 96.8 F L Pulse Rate 88 84 Respiratory Rate 17 18 Blood Pressure 93/50 L Pulse Oximetry 96 97 02/23/18 09:17 02/23/18 09:53 02/23/18 10:00 Temperature 96.8 F L Pulse Rate 91 H 89 Respiratory Rate 20 24 Blood Pressure 95/51 L Pulse Oximetry 100 95 02/23/18 10:09 02/23/18 11:15 02/23/18 11:31 Temperature 96.8 F L 96.8 F L 96.8 F L Pulse Rate 80 91 H 87 Respiratory Rate 25 H 26 H 25 H Blood Pressure 95/53 L 114/58 L 112/61 Pulse Oximetry 94 L 97 02/23/18 12:00 02/23/18 12:11 Temperature 96.8 F L Pulse Rate 92 H Respiratory Rate 22 22 Blood Pressure 107/59 L Pulse Oximetry 97 97 Intake & Output 02/22/18 02/23/18 02/23/18 18:59 06:59 18:59 Intake Total 1626 / 1626 630 / 630 1600 / 1600 Output Total 675 / 675 450 / 450 Balance 951 / 951 180 / 180 1600 / 1600 Weight 84.9 kg Intake: IV 700 / 700 1000 / 1000 1/2 Normal Saline Inj 1,000 ML 700 / 700 1000 / 1000 @ 50 mls/hr IV.CONT .Q20H [facility] Rx#:[id number] Tube Feeding 596 / 596 480 / 480 Tube Irrigant 180 / 180 Water Bolus Amount 150 / 150 150 / 150 Other 200 / 200 Rbc As-3 Leukoreduced Unit 200 / 200 [id number] Intake (Blood Product) Amt 400 / 400 Rbc As-3 Leukoreduced Unit 0 / 0 [id number] Rbc As-3 Leukoreduced Unit 400 / 400 [id number] Output: Stool 0 / 0 Urine Amount (Catheter) 675 / 675 450 / 450 Indwelling Urethral Catheter 675 / 675 450 / 450 Other: Other Intake Source Rbc As-3 Leukoreduced Unit Saline Solution [id number] Date of Last Bowel Movement 02/22/18 # Bowel Movements 1 02/19/18 17:00 Wound - Leg Gram Stain - Final 02/19/18 17:00 Wound - Leg Wound Culture - Final Pseudomonas aeruginosa 02/08/18 13:15 Blood - Peripheral Blood Fungal Culture - Preliminary No growth in 2 weeks 02/08/18 13:15 Blood - Peripheral Blood Fungal Culture - Final Lab - Hematology Results 02/23/18 04:45 WBC 9.1 RBC 2.48 L Hgb 6.6 L* Hct 20.3 L* MCV 82.2 MCH 26.6 L MCHC 32.3 RDW 20.3 H Plt Count 232 MPV 9.3 Lab - Chemistry Results 02/21/18 02/21/18 02/22/18 18:26 20:38 02:15 Sodium Potassium Chloride Carbon Dioxide Anion Gap BUN Creatinine Estimated GFR POC Glucose 213 H 195 H 152 H Random Glucose Calcium 02/22/18 02/22/18 02/22/18 05:47 09:24 11:50 Sodium Potassium Chloride Carbon Dioxide Anion Gap BUN Creatinine Estimated GFR POC Glucose 119 H 112 H 112 H Random Glucose Calcium 02/22/18 02/22/18 02/23/18 18:46 20:26 00:12 Sodium Potassium Chloride Carbon Dioxide Anion Gap BUN Creatinine Estimated GFR POC Glucose 93 105 100 Random Glucose Calcium 02/23/18 02/23/18 02/23/18 04:45 09:07 11:24 Sodium 149 H Potassium 3.9 Chloride 110 H Carbon Dioxide 31.4 Anion Gap 8 BUN 76 H Creatinine 1.37 H Estimated GFR 50 L POC Glucose 161 H 159 H Random Glucose 128 H Calcium 7.7 L Imaging: ITS Impressions Chest CT 01/03/18 00:00 CONCLUSION: 1. Large bilateral pleural effusions occupying more than half of the right and left hemithorax. Abdomen/Pelvis CT 01/13/18 00:00 CONCLUSION: 1. Small bilateral pleural effusions and basilar infiltrates with bilateral chest tubes in place. 2. No evidence of ascites or bowel dilatation. Abdomen/Bladder Ultrasound 01/15/18 00:00 CONCLUSION: 1. Negative renal sonogram. Abdomen X-Ray 02/08/18 00:00 CONCLUSION: 1. Nonobstructive bowel gas pattern. 2. Gastrostomy tube in the left upper abdominal quadrant Head CT 02/08/18 00:00 CONCLUSION: 1. Stable prominent senescent changes with mild to moderate periventricular ischemic white matter demyelination. 2. No acute intracranial abnormality.. Head MRI 02/10/18 00:00 CONCLUSION: 1. No acute findings. Extensive cortical volume loss. Moderate white matter ischemic changes. No recent infarct. Chest X-Ray 02/21/18 16:02 CONCLUSION: Suspected diffuse edema. Mild bilateral pleural effusions. Physical Exam: GENERAL: unresponsive On vent SKIN: Warm and dry. No rash HEAD: Normocephalic. EYES: No scleral icterus. No injection or drainage. NECK: Supple, trachea midline. + trach in place with large amount of drainage CARDIOVASCULAR: RRR. No murmurs, rubs, gallops RESPIRATORY: Breath sounds equal bilaterally. No accessory muscle use. Clear GASTROINTESTINAL: Abdomen soft, non-tender, nondistended. +PEG tube in place MUSCULOSKELETAL: No cyanosis, improved pitting edema. GUl; garcia in place with yellow urine Neuro: obtunded unresponsive no eye contact, not follws commands non vernbal Assessment and Plan - Plan Sacral decub with possible underlying infection, osteomyelitis. growing PSAE S zosyn Prior h/o ESBL E.coli on 10/24/2017. Possible HCAP GNR UTI ? ESBL given h/o ESBL. 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 Encephalopathy: strokes in hospital, optic neuritis on presentation. Fungemia, C. tropicalis restart zosyn repeat sputum clx repeat CXR dw dgtr dw RN dw Dr Aguilar
--- NOTE | 2018-02-23 13:27 | P.PNCC ---
Subjective Subjective Remarks/Hospital Course: This is a 77-year-old male who initially presented with vision changes and concern for optic neuritis versus temporal arteritis. His initial presentation was on 10/14. His hospital course has been complicated by an NSTEMI with troponins which peaked at 10, ESBL E. coli urinary tract infection, rectal bleeding suspected from bleeding hemorrhoids, acute anemia secondary to blood loss with hemoglobin started around 14 and is trended down to 9.7 this morning. On his initial MRA he was found to have significant atherosclerotic cerebrovascular disease in all vascular territories. Today, he had an acute mental status change and was obtunded. Rapid response and stroke alert was called. His initial NIH stroke scale was 22. Dr. goldstein had conversations with Dr. Ulloa and neurology as well as Dr. sierra with gastroenterology. GI feels comfortable with giving thrombolytics and neurology feels strongly that this patient would benefit from systemic IV TPA therapy. I evaluated the patient on arrival to the intensive care unit. The patient is arousable, but very somnolent. He is Syriac speaking, and it is very difficult to ascertain whether or not he can follow commands. He does move all extremities spontaneously, although it appears that his left side is weaker than his right. He has noted facial droop. CT head is negative for acute hemorrhage. CTA head neck is significant for the same multivessel cerebrovascular disease that was present on admission. Given the high-risk nature of the stroke as well as his acute anemia this hospitalization, in preparation for giving emergent IV systemic TPA, I placed an arterial line as well as a large-bore peripheral IV so that we could draw serial labs, monitor his hemoglobin, and give blood products if necessary. I also had an additional discussion with the family where I reconfirmed that their goals were aggressive and they fully understood the significant risk of life-threatening hemorrhage associated with systemic TPA in a patient with new anemia and suspected GI bleeding. The family expressed understanding of his condition and understanding of the heightened risk of life-threatening bleeding, but still urged that we needed to get TPA. Immediately after giving IV TPA, patient had a tonic clonic seizure (witnessed on EEG) and became obtunded with acute hypoxic and hypercarbic respiratory failure and was emergently intubated (see separate procedure note for details). 11/10: remains intubated. encephalopathy persists. hgb stable s/p TPA. ~350cc bloody OG tube output, but this is slowing down. 11/11: more awake. on SBT. follows commands. 11/12: remains extubated. off vasopressors. no changes in mental status. 11/18/17 CCM Reconsult Note Patient was transferred to ICU today after a Halicat was called for AMS, hypoxia , high fever. Apparently patient was lethargic since a.m. in the last hour had been unresponsive and hence Halicat was called. Patient had a fever of 101.4 in a.m., T-max is 101.6. I immediately evaluated the patient in the ICU. Patient is completely unresponsive, oxygen saturation 87% on 4 L nasal cannula. Hypopneic. No response to deep pain. Patient was confirmed to be a full code and I proceeded with endotracheal intubation place him on mechanical ventilation as patient was not protecting airway. More history was obtained from discussion with ID Dr. Jalloh. She indicated patient had been increasingly lethargic with fever and also had urinary retention.She has discontinued Ertapenem, and started on meropenem, vancomycin and micafungin. Cultures have been sent and are pending now. Source of sepsis appears to be aspiration pneumonia versus UTI. Repeat UA and panculture pending at this time. Patient was borderline hypotensive prior to intubation and I have started on Levophed to avoid hypotension post intubation. Receiving 1 L normal saline bolus now, give additional fluid bolus if patient requires continued Levophed will place central line 11/19: remains intubated. holding aggrenox for possible thoracentesis today, but family hesitant to consent with concerns over bleeding risk. Cr remains elevated. discussion with Dr. Bernal, unlikely to benefit currently from draining effusion, so at his recommendation, will proceed with attempted weaning from mechanical ventilation and treat effusion conservatively. 11/20: Overnight /early this a.m. ,the patient was noted to have large amount of rectal bleeding. Aggrenox held since 11/18, 2/2 reintubation. Type and screen ordered. Serial H&H currently be performed. Hemodynamically stable. GI has been reconsulted. Protonix previously given PRN, will schedule BID. Patient was reintubated emergently 11/18, plan for continue CPAP trials. Tube feedings until evaluation by GI. ASA placed on hold , in the setting of GI bleeding. 11/21: EGD and colonoscopy performed yesterday. Patient was noted to be constipated ,disimpacted per GI. Patient noted to have hemorrhoids which was clipped. No further bleeding throughout the night. Chest x-ray showed improvement. CPAP trials initiated this a.m.. ASA 81 mg resumed. 11/22: Patient tolerated CPAP trials approximately 13 hours yesterday. Initiation of tube feeds per GI yesterday, no residuals. This am , family concerned patient not responsive. CT brain , ammonia level and EEG pending. Neurology has been reconsulted. Upon my entering the room, this afternoon, the patient was awake, tracking and squeezing my hand upon commands, with right hand. The patient received 1 u PRBC for Hgb 7.2. Post transfusion CBC pending. Plan for quantification of pleural fluid for possible thoracentesis in a.m.. 11/23: No acute events overnight. Patient remains off all sedation. Noted spontaneous eye opening, tracking following commands squeezing hands right greater than left. Neurology following plan for MRI this a.m., repeat EEG pending. Hemoglobin stable this a.m.. Chest x-ray slight improvement, plan for quantification via ultrasound of pleural effusions for possible thoracentesis today. 3 failed attempts at CPAP trials yesterday. 1548-MRI resulted findings consistent of small areas of acute cortical infarct, new since 11/09/2017. I contacted neurology, Dr. Geronimo informed of results. After Dr. Palma's review of imaging and records, it was determined most likely cardioembolic since is affecting both sides and failure with aspirin and Persantine. Ischemic stroke heparin protocol initiated. Careful review secondary to patient history of GI bleed 11/20, thought to be emanating from hemorrhoid ,however due to poor suboptimal prep, they unable to have optimal visualization per Dr. Jones. 11/24: Late entry note. Patient seen and evaluated 614. No acute events overnight. Patient continues on heparin infusion no active signs of bleeding. PTT within therapeutic range. The patient is less responsive this a.m., spontaneous eye opening, not following my commands. Not moving his extremities spontaneously for me as previously performed yesterday. tube feeds reinitiated. Chest x-ray showed further improvement in aeration of lungs the patient continues on FiO2 of 0.35. Plan for CPAP trials today. 11/25: No acute events overnight. Neurological status unchanged. Spontaneous eye opening patient continues not following any commands. Dr. Geronimo at bedside evaluating patient, no change. Patient tolerated CPAP trials approximately 12 hours yesterday. Tolerating tube feeds. Chest x-ray remains unchanged from yesterday. Hemoccult stool negative. Heparin infusion continued. family at bedside. 11/26: Late entry note. Patient seen at 1240pm. Last night the patient was noted to be continuously hyperglycemic. Levemir added to medication regimen 10 mg/day hemoglobin dropped 2 g/dL in 2 days hemoglobin now 7.7, patient to be transfused 1 unit packed red blood. No obvious signs of bleeding Hemoccult was negative. Patient continues on heparin infusion, patient may require tracheostomy and PEG in the near future . Plan to transition to p.o. anticoagulation post procedures. Neurologically the status is unchanged the patient is opens eyes spontaneously no movement of extremities upon my evaluation. Continued CPAP trials currently greater than 6 hours. 11/27: At 1000am, the patient was noted to have melena, approximated at 150 cc per RN evaluation. Heparin infusion discontinued/placed on hold at 10 AM. Stool for Hemoccult blood sent, GI was contacted and informed of the above events. Stat CT of the abdomen and pelvis with p.o. contrast ordered, results pending. Patient previously had been tolerating trickle feeds at 10 cc an hour with no residuals, after initiation of Reglan 5 mg every 8 hours yesterday. Neurologically the patient status is unchanged. Patient does have spontaneous eye opening but does not follow my commands and does not move extremities. Patient's daughter is at bedside, discussed the above events at which she was present for, she is requesting a repeat colonoscopy. I informed her that a CT of the abdomen and pelvis will be obtained, serial hemoglobin will be evaluated and if needed transfusion will be provided and gastroenterology has been contacted and will determine further management if an invasive procedure is required. Hemoglobin continues to be monitored serially, results pending for 10 AM. The patient received 1 unit packed red blood cells, and current hemoglobin trended overnight 8.9 to 8.2 this a.m., posttransfusion. 11/28: hgb continues to decline despite being off heparin. no additional GI interventions are available at this time. clearly the patient has failed anticoagulation with 2 life-threatening bleeding episodes. Although it is clear he may have additional strokes off anticoagulation, we have clear evidence that we are hurting his overall clinical care with his anticoagulation. I explained this at length to the daughter and medical decision maker. however, she insists that she would rather see him of bleeding rather than have any more strokes , and insists that "we can always keep giving him blood". I explained that blood is not without risk, and there is significant risk to anticoagulation, but she is insistent that he be given anticoagulation to prevent further strokes and she has weighed the risks and benefits after having full informed consent, insists upon us restarting the heparin drip. At her insistence, I have restarted it. In addition, I have counseled her that I do not think he will survive this hospitalization, and he will require tracheostomy for further aggressive care. She states that we are not at "day 14" on the vent, and it is not time for a tracheostomy yet. This is a second intubation and we are certainly at risk for complications from endotracheal intubation, and tracheostomy would be the most appropriate next step for this patient, but the family is refusing until WednesdayDecember 01. 11/29 Patient remains intubated, on no sedation. Afebrile. 11/30 No events overnight. Patient tolerated CPAP for most of day yesterday. Remains on Heparin drip. 12/01 Patient remains intubated tolerated CPAP for several hrs yesterday. s/p CT guided right thoracentesis with removal 500ml pleural fluid. On Heparin drip 12/02 No events overnight. Heparin drip stopped this morning for trach and PEG placement today. Afebrile. 12/03 Patient s/p trach and PEG tube placement yesterday. Had bleeding from around trach and PEG tube insertion sites Heparin drip held last night. s/p transfusion 1u PRBC yesterday Hgb 8.0 this morning. Afebrile. On no sedation. 12/04: Continues to have bruising from PEG tube insertion site. Trach site appears to have stopped. Hemoglobin 7 the same receiving 1 unit FFP and 1 PRBCs. Tube feeds of been resumed. On no sedation. 12/05: Afebrile. No further bleeding noted from the tracheostomy site. Overnight reported by the RN that the PEG tube site continues to bleed Surgicel was placed around the opening, small amount of bleeding still noted. Patient hemoglobin remained 7 patient to be transfused 1 unit PRBC's fibrinogen level pending INR within normal limits. 12/06 Patient s/p transfusion 2u PRBC yesterday Hgb 9.5 this morning from 7.2 last night. No bleeding from trach site however patient still having rectal bleeding. 12/07 No events overnight. On ventilator via trach Hgb 9.8 this morning for colonoscopy today. 12/08: seen and examined around 06:30am. no significant change in mental status. hgb 8.9 this AM. remains on heparin drip at [facility]. 12/09: no improvements or changes. very deconditioned. garcia has remained in without clear indication. had 1 episode of urinary retention, but this is a clear source of infection and an additional serious infection would certainly be life-threatening. 12/10 Patient is now on TP's with 28% FIO2, Afebrile. On Heparin drip. 12/11: remains on t-piece x > 48h. no change in neuro exam. remains on heparin drip with stable hgb 7.8. 12/12: asked to see patient again today by the hospitalist service for change in condition. I have evaluated the patient and he does not clinically appear any different than yesterday. HR actually lower than yesterday. bladder scan suggestive of 600cc retention. patient has had urinary retention before, although has also had multiple hospital acquired urinary tract infections. risk/ benefit at this time would be in favor of serial q6h straight catheterizations. remains hemodynamically stable. some emesis today and evidence of ileus. 12/31 Reconsult for resp distress Patient is 77 yo with chronic resp failure, trach/PEG tube placement, CVA transferred to [facility] for resp distress trach changes to #6 and patient was placed on mechanical ventilation. CXR showed increasing consolidation patient was given Lasix prior to arrival to [facility]. 01/01 Patient is on ventilator via trach. Afebrile. 01/02 No events overnight. On no drips, Afebrile, CPAP 15/5 with 35% FIO2 overnight. 01/03 Remained on TP breathing comfortably. CXR shows bilateral effusions. Will get CT chest. Give single dose of lasix. ID consulted and following, no fever in 24 hours 01/04: Remains unresponsive, fever trending down. Sputum culture now growing Klebsiella and ESBL E. coli. Urine culture and wound culture also growing ESBL E. coli. Chest tube placed on the right side yesterday with 1.35 L output since placement. Urine output excellent with single dose of Lasix 2.5 L in 24 hours. No fever in 24 hours. Repeat 40 mg IV Lasix 1 [facility] RECONSULT NOTE 02/08/18: Mr. Glynn is a 77-year-old man who is known to our service. In short, he was initially admitted with possible optic neuritis versus temporal arteritis in September. Care complicated by an STEMI, multiple infections with healthcare associated pneumonia UTIs. During hospitalization he also received TPA for Stroke, MRI of the brain performed on 12/24/2017, showed infarction involving the left corpus callosum and splenium of the corpus callosum. The patient had undergone tracheostomy placement. And since last month had been on hospitalist service and off ventilator. He is currently receiving Levaquin for stenotrophomonas infection, Diflucan for candidemia. Apparently patient was noted to aspirate earlier this a.m. At 7250 AM patient was found unresponsive pulseless rhythm asystole and CPR was started. Total 3 amp of epinephrine given. Patient had a cuff less trach with evidence of aspiration, large amount of tube feeds aspirated from tracheostomy tube. This was exchanged for a 8.0 Shiley tracheostomy cuffed. With improved bag and mask ventilation and after 3 epinephrine, 1 amp of calcium, 1 amp of bicarb, patient regained ROSC SUBJ 02/09/18: Remains very critical not on any sedation he is unresponsive eyes are spontaneously open but no tracking. Very slight withdrawal to pain on the upper extremities. CT of the head unremarkable. Currently borderline hypotensive off pressors. Received 2 units of PRBC for hemoglobin 6.6 yesterday. Prognosis remained poor. Neurology consulted per family request 02/10/18: Remains critical with no improvement in neuro status or clinical status. Eyes are spontaneously open but no response to threat no tracking. Neurology consulted MRI and EEG pending at this time. Currently remains on Levophed at 1 mcg/min. Chest x-ray with bilateral infiltrates sputum culture growing GNR. Na 155. Free water flushes and half-normal saline rate increased. 02/11: Remains unresponsive off all sedation. Osmolality slowly returning to baseline. Antibiotics appropriate for organism. Tube feeds tolerated at 50 mL' s per hour. Unable to wean from mechanical ventilation. 02/12: Osmolality slowly returning to baseline. Tube feeds now tolerated at 60 mL's per hour. Unable to wean from mechanical ventilation due to fatigue. 02/13: Placed on spontaneous breathing trial this morning but required 18 of pressure support to maintain an adequate minute volume. Will work from this point and attempt to wean pressure support over the next many days. Will place back on mechanical rate nightly. Anticoagulation is been particularly cumbersome and made more difficult by Diflucan. Will restart Coumadin again this morning as INR is declined to 2.2 02/14: Remains very weak. Essentially unresponsive. Tolerates brief periods of spontaneous breathing trial blood pressure support must be markedly elevated to the 1820 range. State of hydration gradually improving as osmolality declines and serum creatinine improves. Will continue hypotonic solutions IV. 02/15: Remains unresponsive. Continues to fail spontaneous breathing trials due to lack of respiratory effort. Suffers from tachypnea with an efficient small tidal volumes regardless of the amount of pressure support. 02/16: Onset of copious watery diarrhea is contaminating buttock wounds. We will insert a dignity shield system for fecal management. Remains unresponsive to noxious stimulation. He does have a weak cough reflex. 02/17: Patient is weaker on attempts at spontaneous breathing trials today. Patient remains unresponsive. Only reaction is a weak cough to suctioning. 02/18: Patient continues to do poorly on attempts at spontaneous breathing trials. Urine output is improved with diuresis, will follow renal function closely. 02/19: Albumin 1.1, further evidence that the patient is deteriorating. Responds to diuretics but prerenal azotemia quickly develops. 02/20: Ongoing attempts to remove excess soft tissue and pleural water consistently resolved and renal impairment. Unfortunately this is largely caused by his poor nutritional status. Despite sufficient nutritional support he continues to deteriorate clinically. 02/21: no improvements in function. still grossly anasarca. Cr worsening again. hypernatremia persists. 02/22: no changes. intermittently tachycardic. still gently diuresing. outlook poor. Subjective: 02/23: no improvements. anemic this AM requiring transfusion of prbc. Family refuses to allow the holding of anticoagulation given multiple recent CVA, so anticoagulation will continue despite anemia. remains hypernatremic despite therapy. Objective Vital Signs / I&O: Vital Signs 02/22/18 14:00 02/22/18 15:53 02/22/18 16:00 Temperature 37.0 C Pulse Rate 95 H 94 H Respiratory Rate 25 H 23 Blood Pressure 100/55 L Pulse Oximetry 97 02/22/18 18:00 02/22/18 20:00 02/22/18 21:10 Temperature 36.5 C Pulse Rate 90 92 H Respiratory Rate 19 17 Blood Pressure 95/55 L Pulse Oximetry 95 97 02/22/18 22:00 02/22/18 22:32 02/23/18 00:00 Temperature 36.5 C Pulse Rate 92 H 94 H Respiratory Rate 17 14 Blood Pressure 107/61 Pulse Oximetry 95 96 02/23/18 01:53 02/23/18 02:00 02/23/18 04:00 Temperature 36.4 C L Pulse Rate 90 90 Respiratory Rate 16 19 Blood Pressure 90/52 L Pulse Oximetry 94 L 97 02/23/18 04:16 02/23/18 06:00 02/23/18 08:00 Temperature 36.0 C L Pulse Rate 88 84 Respiratory Rate 17 18 Blood Pressure 93/50 L Pulse Oximetry 96 97 02/23/18 09:17 02/23/18 09:53 02/23/18 10:00 Temperature 36.0 C L Pulse Rate 91 H 89 Respiratory Rate 20 24 Blood Pressure 95/51 L Pulse Oximetry 100 95 02/23/18 10:09 02/23/18 11:15 02/23/18 11:31 Temperature 36.0 C L 36.0 C L 36.0 C L Pulse Rate 80 91 H 87 Respiratory Rate 25 H 26 H 25 H Blood Pressure 95/53 L 114/58 L 112/61 Pulse Oximetry 94 L 97 02/23/18 12:00 02/23/18 12:11 Temperature 36.0 C L Pulse Rate 92 H Respiratory Rate 22 22 Blood Pressure 107/59 L Pulse Oximetry 97 97 Intake & Output 02/22/18 02/23/18 02/23/18 18:59 06:59 18:59 Intake Total 1626 / 1626 630 / 630 1600 / 1600 Output Total 675 / 675 450 / 450 Balance 951 / 951 180 / 180 1600 / 1600 Weight 84.9 kg Intake: IV 700 / 700 1000 / 1000 1/2 Normal Saline Inj 1,000 ML 700 / 700 1000 / 1000 @ 50 mls/hr IV.CONT .Q20H ON LICENSE OF [facility] Rx#:[id number] Tube Feeding 596 / 596 480 / 480 Tube Irrigant 180 / 180 Water Bolus Amount 150 / 150 150 / 150 Other 200 / 200 Rbc As-3 Leukoreduced Unit 200 / 200 [id number] Intake (Blood Product) Amt 400 / 400 Rbc As-3 Leukoreduced Unit 0 / 0 [id number] Rbc As-3 Leukoreduced Unit 400 / 400 [id number] Output: Stool 0 / 0 Urine Amount (Catheter) 675 / 675 450 / 450 Indwelling Urethral Catheter 675 / 675 450 / 450 Other: Other Intake Source Rbc As-3 Leukoreduced Unit Saline Solution [id number] Date of Last Bowel Movement 02/22/18 # Bowel Movements 1 Result Diagrams: 02/23/18 04:45 02/23/18 04:45 Objective Remarks: GENERAL: Patient is 77 yo encephalopathic, unresponsive on the vent. Eyes are closed. SKIN: Warm and dry. Stage IV sacral decubitus, surrounding buttocks excoriation. HEAD: Normocephalic. Tongue moist. EYES: No scleral icterus. No injection. PRABHA. NECK: Cuffed tracheostomy tube in place. Moderate secretions persist. CARDIOVASCULAR: normal rate, regular rhythm. No JVD. RESPIRATORY: Breath sounds equal bilaterally. Persistent scattered rhonchi GASTROINTESTINAL: Abdomen soft. PEG tube site clean and dry MUSCULOSKELETAL: No cyanosis. Generalized edema. NEURO: Eyes are closed. Unresponsive to stimulation in all 4 limbs. Weak cough reflex. Assessment and Plan - Assessment and Plan Plan: Assessment: Asystole/Cardiac arrest Worsening encephalopathy most likely anoxia contributing Aspiration pneumonia Acute on chronic hypoxemic and hypercapnic resp failure Combined shock, septic and cardiogenic Healthcare associated pneumonia, stenotrophomonas Candidemia UTI with ESBL E. coli Hypernatremia- persistent despite therapy CVA Anemia requiring transfusion Sacral decubitus ulcer s/p NSTEMI Optic neuritis Status post tracheostomy and PEG tube placement Acute protein calorie malnutrition- severe Plan: Impression: Neuro -Acute worsening of encephalopathy secondary to systolic cardiac arrest, anoxia -CT head 02/08/[address] Pereira reconsulted per family request -History of L ENID infarct. Status post systemic TPA on November 09 -Neuropsychology has followed. Continue Ritalin -Optic neuritis. Status post treatment with IV hydrocortisone -Remains unresponsive. CV: -Asystole/cardiac arrest seems secondary to hypoxia and hypercapnia from severe aspiration -s/p IV fluid normal saline 2 L bolus, 2U PRBC -half-normal saline to 100 ml per hour due to hypernatremia, free water flushes to 300 mL every 4 -Continue Coumadin -Echo 10/19: LV systolic function is moderately reduced, EF 40-45%. Cardiology has followed Dr. Hernández -Cardura 2mg daily and Coreg 3.125mg BID on hold due to hypotension. On Lipitor 80mg qhs Pulm: -Cardiac arrest seems to be secondary to respiratory arrest. Evidence of aspiration at the time of arrest -Cuff less tracheostomy tube removed and new Shiley 8 cuffed tracheostomy placed 02/08/18 -PRVC/AC ventilation. DuoNeb every 6 hours scheduled and as needed -Failed CPAP due to apnea -ICU vent bundle. Pulm toilet, trach care. -pseudomonas in sputum culture, On Levaquin for stenotrophomonas, Diflucan for candidemia, meropenem for previous ESBL E Coli HCAP -Antibiotic and antifungal coverage remains appropriate. GI -Currently tube feeds at goal. continue as tolerated. -On Pepcid 10mg BID -Free water flushes 300 mils every 4 hours -Having BMs -Tube feeds at 60 mL's per hour 02/12. -Tube feeds tolerated with acceptable gastric residual -recheck cbc, bmp q48h : -Monitor renal function, electrolytes replacement per protocol ID -Patient was receiving Levaquin for stenotrophomonas, Diflucan for candidemia -Added meropenem 02/08/18 for previous ESBL E. coli HCAP -Previous UTI with ESBL E. coli, Previous healthcare associated pneumonia with Klebsiella and ESBL E. coli -F/U blood and sputum culture and urine culture. pseudomonas in sputum 02/08 -ID Dr. Jalloh following Skin -Sacral wound-Seen by Plastic surgery; debridement declined per patient's family -Wound care is following- apply dressings per wound management recommendations Heme: -Monitor hemoglobin closely. Status post 2 units PRBC on 02/08/2018 now s/p additional 2 units prbc on 02/23 for recurrent anemia. -Previous GI bleed; Status post EGD colonoscopy. GI has signed off, patient with healed rectal ulcers and hemorrhoids. -INR therapeutic Endo -On SSI. Levemir for glycemic control GI prophylaxis- on Pepcid DVT prophylaxis- On Coumadin and adjusted per pharmacy consultation. Overall impression: Patient remains critically ill after aspiration with hypoxemic and hypercarbic respiratory failure leading to asystolic cardiac arrest. Ten minutes of CPR with return of spontaneous circulation after aggressive resuscitation following CPR, patient remains hypoxemic and encephalopathy. Remains unresponsive, weak respiratory effort is ineffective during spontaneous trials, unable to begin weaning from ventilator. Prognosis remains poor. Family unrealistic with goals of care and press on for aggressive measures. no meaningful improvements in months.
[2018-02-23] MEDS: Piperacil/Tazo 4.5 GM Premix 4.5 GM/100 ML BAG IV.SIG SCH ×2 (14:00→20:40)
[2018-02-24] MEDS: Piperacil/Tazo 4.5 GM Premix 4.5 GM/100 ML BAG IV.SIG SCH ×4 (02:22→21:33)
--- NOTE | 2018-02-24 03:55 | XR ---
EXAM DATE: 02/24/2018 3:51 AM EDT AGE/SEX: 77 years / Male INDICATIONS: Shortness of breath CLINICAL DATA: This is the patient's subsequent encounter. Patient reports that signs and symptoms h ave been present for 1 week and indicates a pain score of Nonresponsive. MEDICAL/SURGICAL HISTORY: Non-responsive. Non-responsive. [place]PAR[place] [facility] [place]/2018. . FINDINGS: Mid and lower lung parenchymal consolidation and small right, [id number] left pleural effusion s are all not significantly changed. No pneumothorax seen. Heart size stable, upper limits of normal. Tracheostomy tube again noted. There is a right subclavian central venous catheter with tip in the superior vena cava again seen. CONCLUSION: No significant change. Electronically signed by: Antolin Sheridan MD 02/24/2018 3:53 AM EDT
[2018-02-24 05:40] LABS: INR 1.8 Ratio; Prothrombin Time 18.3 sec (9.8-11.6)
[2018-02-24] MEDS: Insulin NovoLIN Regular Correctional Sugar Inj SQ SCH ×3 (05:42→18:17)
--- NOTE | 2018-02-24 07:56 | P.PNCC ---
Subjective Subjective Remarks/Hospital Course: This is a 77-year-old male who initially presented with vision changes and concern for optic neuritis versus temporal arteritis. His initial presentation was on 10/14. His hospital course has been complicated by an NSTEMI with troponins which peaked at 10, ESBL E. coli urinary tract infection, rectal bleeding suspected from bleeding hemorrhoids, acute anemia secondary to blood loss with hemoglobin started around 14 and is trended down to 9.7 this morning. On his initial MRA he was found to have significant atherosclerotic cerebrovascular disease in all vascular territories. Today, he had an acute mental status change and was obtunded. Rapid response and stroke alert was called. His initial NIH stroke scale was 22. Dr. goldstein had conversations with Dr. Ulloa and neurology as well as Dr. sierra with gastroenterology. GI feels comfortable with giving thrombolytics and neurology feels strongly that this patient would benefit from systemic IV TPA therapy. I evaluated the patient on arrival to the intensive care unit. The patient is arousable, but very somnolent. He is Kinyarwanda speaking, and it is very difficult to ascertain whether or not he can follow commands. He does move all extremities spontaneously, although it appears that his left side is weaker than his right. He has noted facial droop. CT head is negative for acute hemorrhage. CTA head neck is significant for the same multivessel cerebrovascular disease that was present on admission. Given the high-risk nature of the stroke as well as his acute anemia this hospitalization, in preparation for giving emergent IV systemic TPA, I placed an arterial line as well as a large-bore peripheral IV so that we could draw serial labs, monitor his hemoglobin, and give blood products if necessary. I also had an additional discussion with the family where I reconfirmed that their goals were aggressive and they fully understood the significant risk of life-threatening hemorrhage associated with systemic TPA in a patient with new anemia and suspected GI bleeding. The family expressed understanding of his condition and understanding of the heightened risk of life-threatening bleeding, but still urged that we needed to get TPA. Immediately after giving IV TPA, patient had a tonic clonic seizure (witnessed on EEG) and became obtunded with acute hypoxic and hypercarbic respiratory failure and was emergently intubated (see separate procedure note for details). 11/10: remains intubated. encephalopathy persists. hgb stable s/p TPA. ~350cc bloody OG tube output, but this is slowing down. 11/11: more awake. on SBT. follows commands. 11/12: remains extubated. off vasopressors. no changes in mental status. 11/18/17 CCM Reconsult Note Patient was transferred to ICU today after a Halicat was called for AMS, hypoxia , high fever. Apparently patient was lethargic since a.m. in the last hour had been unresponsive and hence Halicat was called. Patient had a fever of 101.4 in a.m., T-max is 101.6. I immediately evaluated the patient in the ICU. Patient is completely unresponsive, oxygen saturation 87% on 4 L nasal cannula. Hypopneic. No response to deep pain. Patient was confirmed to be a full code and I proceeded with endotracheal intubation place him on mechanical ventilation as patient was not protecting airway. More history was obtained from discussion with ID Dr. Jalloh. She indicated patient had been increasingly lethargic with fever and also had urinary retention.She has discontinued Ertapenem, and started on meropenem, vancomycin and micafungin. Cultures have been sent and are pending now. Source of sepsis appears to be aspiration pneumonia versus UTI. Repeat UA and panculture pending at this time. Patient was borderline hypotensive prior to intubation and I have started on Levophed to avoid hypotension post intubation. Receiving 1 L normal saline bolus now, give additional fluid bolus if patient requires continued Levophed will place central line 11/19: remains intubated. holding aggrenox for possible thoracentesis today, but family hesitant to consent with concerns over bleeding risk. Cr remains elevated. discussion with Dr. Bernal, unlikely to benefit currently from draining effusion, so at his recommendation, will proceed with attempted weaning from mechanical ventilation and treat effusion conservatively. 11/20: Overnight /early this a.m. ,the patient was noted to have large amount of rectal bleeding. Aggrenox held since 11/18, 2/2 reintubation. Type and screen ordered. Serial H&H currently be performed. Hemodynamically stable. GI has been reconsulted. Protonix previously given PRN, will schedule BID. Patient was reintubated emergently 11/18, plan for continue CPAP trials. Tube feedings until evaluation by GI. ASA placed on hold , in the setting of GI bleeding. 11/21: EGD and colonoscopy performed yesterday. Patient was noted to be constipated ,disimpacted per GI. Patient noted to have hemorrhoids which was clipped. No further bleeding throughout the night. Chest x-ray showed improvement. CPAP trials initiated this a.m.. ASA 81 mg resumed. 11/22: Patient tolerated CPAP trials approximately 13 hours yesterday. Initiation of tube feeds per GI yesterday, no residuals. This am , family concerned patient not responsive. CT brain , ammonia level and EEG pending. Neurology has been reconsulted. Upon my entering the room, this afternoon, the patient was awake, tracking and squeezing my hand upon commands, with right hand. The patient received 1 u PRBC for Hgb 7.2. Post transfusion CBC pending. Plan for quantification of pleural fluid for possible thoracentesis in a.m.. 11/23: No acute events overnight. Patient remains off all sedation. Noted spontaneous eye opening, tracking following commands squeezing hands right greater than left. Neurology following plan for MRI this a.m., repeat EEG pending. Hemoglobin stable this a.m.. Chest x-ray slight improvement, plan for quantification via ultrasound of pleural effusions for possible thoracentesis today. 3 failed attempts at CPAP trials yesterday. 1548-MRI resulted findings consistent of small areas of acute cortical infarct, new since 11/09/2017. I contacted neurology, Dr. Geronimo informed of results. After Dr. Palma's review of imaging and records, it was determined most likely cardioembolic since is affecting both sides and failure with aspirin and Persantine. Ischemic stroke heparin protocol initiated. Careful review secondary to patient history of GI bleed 11/20, thought to be emanating from hemorrhoid ,however due to poor suboptimal prep, they unable to have optimal visualization per Dr. Jones. 11/24: Late entry note. Patient seen and evaluated 614. No acute events overnight. Patient continues on heparin infusion no active signs of bleeding. PTT within therapeutic range. The patient is less responsive this a.m., spontaneous eye opening, not following my commands. Not moving his extremities spontaneously for me as previously performed yesterday. tube feeds reinitiated. Chest x-ray showed further improvement in aeration of lungs the patient continues on FiO2 of 0.35. Plan for CPAP trials today. 11/25: No acute events overnight. Neurological status unchanged. Spontaneous eye opening patient continues not following any commands. Dr. Geronimo at bedside evaluating patient, no change. Patient tolerated CPAP trials approximately 12 hours yesterday. Tolerating tube feeds. Chest x-ray remains unchanged from yesterday. Hemoccult stool negative. Heparin infusion continued. family at bedside. 11/26: Late entry note. Patient seen at 1240pm. Last night the patient was noted to be continuously hyperglycemic. Levemir added to medication regimen 10 mg/day hemoglobin dropped 2 g/dL in 2 days hemoglobin now 7.7, patient to be transfused 1 unit packed red blood. No obvious signs of bleeding Hemoccult was negative. Patient continues on heparin infusion, patient may require tracheostomy and PEG in the near future . Plan to transition to p.o. anticoagulation post procedures. Neurologically the status is unchanged the patient is opens eyes spontaneously no movement of extremities upon my evaluation. Continued CPAP trials currently greater than 6 hours. 11/27: At 1000am, the patient was noted to have melena, approximated at 150 cc per RN evaluation. Heparin infusion discontinued/placed on hold at 10 AM. Stool for Hemoccult blood sent, GI was contacted and informed of the above events. Stat CT of the abdomen and pelvis with p.o. contrast ordered, results pending. Patient previously had been tolerating trickle feeds at 10 cc an hour with no residuals, after initiation of Reglan 5 mg every 8 hours yesterday. Neurologically the patient status is unchanged. Patient does have spontaneous eye opening but does not follow my commands and does not move extremities. Patient's daughter is at bedside, discussed the above events at which she was present for, she is requesting a repeat colonoscopy. I informed her that a CT of the abdomen and pelvis will be obtained, serial hemoglobin will be evaluated and if needed transfusion will be provided and gastroenterology has been contacted and will determine further management if an invasive procedure is required. Hemoglobin continues to be monitored serially, results pending for 10 AM. The patient received 1 unit packed red blood cells, and current hemoglobin trended overnight 8.9 to 8.2 this a.m., posttransfusion. 11/28: hgb continues to decline despite being off heparin. no additional GI interventions are available at this time. clearly the patient has failed anticoagulation with 2 life-threatening bleeding episodes. Although it is clear he may have additional strokes off anticoagulation, we have clear evidence that we are hurting his overall clinical care with his anticoagulation. I explained this at length to the daughter and medical decision maker. however, she insists that she would rather see him of bleeding rather than have any more strokes , and insists that "we can always keep giving him blood". I explained that blood is not without risk, and there is significant risk to anticoagulation, but she is insistent that he be given anticoagulation to prevent further strokes and she has weighed the risks and benefits after having full informed consent, insists upon us restarting the heparin drip. At her insistence, I have restarted it. In addition, I have counseled her that I do not think he will survive this hospitalization, and he will require tracheostomy for further aggressive care. She states that we are not at "day 14" on the vent, and it is not time for a tracheostomy yet. This is a second intubation and we are certainly at risk for complications from endotracheal intubation, and tracheostomy would be the most appropriate next step for this patient, but the family is refusing until WednesdayDecember 01. 11/29 Patient remains intubated, on no sedation. Afebrile. 11/30 No events overnight. Patient tolerated CPAP for most of day yesterday. Remains on Heparin drip. 12/01 Patient remains intubated tolerated CPAP for several hrs yesterday. s/p CT guided right thoracentesis with removal 500ml pleural fluid. On Heparin drip 12/02 No events overnight. Heparin drip stopped this morning for trach and PEG placement today. Afebrile. 12/03 Patient s/p trach and PEG tube placement yesterday. Had bleeding from around trach and PEG tube insertion sites Heparin drip held last night. s/p transfusion 1u PRBC yesterday Hgb 8.0 this morning. Afebrile. On no sedation. 12/04: Continues to have bruising from PEG tube insertion site. Trach site appears to have stopped. Hemoglobin 7 the same receiving 1 unit FFP and 1 PRBCs. Tube feeds of been resumed. On no sedation. 12/05: Afebrile. No further bleeding noted from the tracheostomy site. Overnight reported by the RN that the PEG tube site continues to bleed Surgicel was placed around the opening, small amount of bleeding still noted. Patient hemoglobin remained 7 patient to be transfused 1 unit PRBC's fibrinogen level pending INR within normal limits. 12/06 Patient s/p transfusion 2u PRBC yesterday Hgb 9.5 this morning from 7.2 last night. No bleeding from trach site however patient still having rectal bleeding. 12/07 No events overnight. On ventilator via trach Hgb 9.8 this morning for colonoscopy today. 12/08: seen and examined around 06:30am. no significant change in mental status. hgb 8.9 this AM. remains on heparin drip at [facility]. 12/09: no improvements or changes. very deconditioned. garcia has remained in without clear indication. had 1 episode of urinary retention, but this is a clear source of infection and an additional serious infection would certainly be life-threatening. 12/10 Patient is now on TP's with 28% FIO2, Afebrile. On Heparin drip. 12/11: remains on t-piece x > 48h. no change in neuro exam. remains on heparin drip with stable hgb 7.8. 12/12: asked to see patient again today by the hospitalist service for change in condition. I have evaluated the patient and he does not clinically appear any different than yesterday. HR actually lower than yesterday. bladder scan suggestive of 600cc retention. patient has had urinary retention before, although has also had multiple hospital acquired urinary tract infections. risk/ benefit at this time would be in favor of serial q6h straight catheterizations. remains hemodynamically stable. some emesis today and evidence of ileus. 12/31 Reconsult for resp distress Patient is 77 yo with chronic resp failure, trach/PEG tube placement, CVA [place] [facility] [place] distress trach changes to #6 and patient was placed on mechanical ventilation. CXR showed increasing consolidation patient was given Lasix prior to arrival to [facility]. 01/01 Patient is on ventilator via trach. Afebrile. 01/02 No events overnight. On no drips, Afebrile, CPAP 15/5 with 35% FIO2 overnight. 01/03 Remained on TP breathing comfortably. CXR shows bilateral effusions. Will get CT chest. Give single dose of lasix. ID consulted and following, no fever in 24 hours 01/04: Remains unresponsive, fever trending down. Sputum culture now growing Klebsiella and ESBL E. coli. Urine culture and wound culture also growing ESBL E. coli. Chest tube placed on the right side yesterday with 1.35 L output since placement. Urine output excellent with single dose of Lasix 2.5 L in 24 hours. No fever in 24 hours. Repeat 40 mg IV Lasix 1 [facility] [place] [place] 02/08/18: Mr. Glynn is a 77-year-old man who is known to our service. In short, he was initially admitted with possible optic neuritis versus temporal arteritis in September. Care complicated by an STEMI, multiple infections with healthcare associated pneumonia UTIs. During hospitalization he also received TPA for Stroke, MRI of the brain performed on 12/24/2017, showed infarction involving the left corpus callosum and splenium of the corpus callosum. The patient had undergone tracheostomy placement. And since last month had been on hospitalist service and off ventilator. He is currently receiving Levaquin for stenotrophomonas infection, Diflucan for candidemia. Apparently patient was noted to aspirate earlier this a.m. At 7250 AM patient was found unresponsive pulseless rhythm asystole and CPR was started. Total 3 amp of epinephrine given. Patient had a cuff less trach with evidence of aspiration, large amount of tube feeds aspirated from tracheostomy tube. This was exchanged for a 8.0 Shiley tracheostomy cuffed. With improved bag and mask ventilation and after 3 epinephrine, 1 amp of calcium, 1 amp of bicarb, patient regained ROSC SUBJ 02/09/18: Remains very critical not on any sedation he is unresponsive eyes are spontaneously open but no tracking. Very slight withdrawal to pain on the upper extremities. CT of the head unremarkable. Currently borderline hypotensive off pressors. Received 2 units of PRBC for hemoglobin 6.6 yesterday. Prognosis remained poor. Neurology consulted per family request 02/10/18: Remains critical with no improvement in neuro status or clinical status. Eyes are spontaneously open but no response to threat no tracking. Neurology consulted MRI and EEG pending at this time. Currently remains on Levophed at 1 mcg/min. Chest x-ray with bilateral infiltrates sputum culture growing GNR. Na 155. Free water flushes and half-normal saline rate increased. 02/11: Remains unresponsive off all sedation. Osmolality slowly returning to baseline. Antibiotics appropriate for organism. Tube feeds tolerated at 50 mL' s per hour. Unable to wean from mechanical ventilation. 02/12: Osmolality slowly returning to baseline. Tube feeds now tolerated at 60 mL's per hour. Unable to wean from mechanical ventilation due to fatigue. 02/13: Placed on spontaneous breathing trial this morning but required 18 of pressure support to maintain an adequate minute volume. Will work from this point and attempt to wean pressure support over the next many days. Will place back on mechanical rate nightly. Anticoagulation is been particularly cumbersome and made more difficult by Diflucan. Will restart Coumadin again this morning as INR is declined to 2.2 02/14: Remains very weak. Essentially unresponsive. Tolerates brief periods of spontaneous breathing trial blood pressure support must be markedly elevated to the 1820 range. State of hydration gradually improving as osmolality declines and serum creatinine improves. Will continue hypotonic solutions IV. 02/15: Remains unresponsive. Continues to fail spontaneous breathing trials due to lack of respiratory effort. Suffers from tachypnea with an efficient small tidal volumes regardless of the amount of pressure support. 02/16: Onset of copious watery diarrhea is contaminating buttock wounds. We will insert a dignity shield system for fecal management. Remains unresponsive to noxious stimulation. He does have a weak cough reflex. 02/17: Patient is weaker on attempts at spontaneous breathing trials today. Patient remains unresponsive. Only reaction is a weak cough to suctioning. 02/18: Patient continues to do poorly on attempts at spontaneous breathing trials. Urine output is improved with diuresis, will follow renal function closely. 02/19: Albumin 1.1, further evidence that the patient is deteriorating. Responds to diuretics but prerenal azotemia quickly develops. 02/20: Ongoing attempts to remove excess soft tissue and pleural water consistently resolved and renal impairment. Unfortunately this is largely caused by his poor nutritional status. Despite sufficient nutritional support he continues to deteriorate clinically. 02/21: no improvements in function. still grossly anasarca. Cr worsening again. hypernatremia persists. 02/22: no changes. intermittently tachycardic. still gently diuresing. outlook poor. Subjective: 02/23: no improvements. anemic this AM requiring transfusion of prbc. Family refuses to allow the holding of anticoagulation given multiple recent CVA, so anticoagulation will continue despite anemia. remains hypernatremic despite therapy. 02/24: no changes or improvements. HR came down with transfusion of prbc yesterday. Objective Vital Signs / I&O: Vital Signs 02/23/18 08:00 02/23/18 09:17 02/23/18 09:53 Temperature 36.0 C L 36.0 C L Pulse Rate 84 91 H Respiratory Rate 18 20 24 Blood Pressure 93/50 L 95/51 L Pulse Oximetry 97 100 95 02/23/18 10:00 02/23/18 10:09 02/23/18 11:15 Temperature 36.0 C L 36.0 C L Pulse Rate 89 80 91 H Respiratory Rate 25 H 26 H Blood Pressure 95/53 L 114/58 L Pulse Oximetry 94 L 97 02/23/18 11:31 02/23/18 12:00 02/23/18 12:11 Temperature 36.0 C L 36.0 C L Pulse Rate 87 92 H Respiratory Rate 25 H 22 22 Blood Pressure 112/61 107/59 L Pulse Oximetry 97 97 02/23/18 14:00 02/23/18 15:33 02/23/18 16:00 Temperature 37.6 C H Pulse Rate 94 H 94 H Respiratory Rate 20 20 Blood Pressure 115/57 L Pulse Oximetry 94 L 95 02/23/18 18:00 02/23/18 20:00 02/23/18 20:11 Temperature 37.7 C H Pulse Rate 96 H 110 H Respiratory Rate 21 21 Blood Pressure 135/63 Pulse Oximetry 95 94 L 02/23/18 22:00 02/23/18 23:36 02/24/18 00:00 Temperature 37.0 C Pulse Rate 98 H 92 H Respiratory Rate 19 21 Blood Pressure 114/61 Pulse Oximetry 96 96 02/24/18 02:00 02/24/18 03:06 02/24/18 04:00 Temperature 36.4 C L Pulse Rate 89 92 H Respiratory Rate 20 21 Blood Pressure 103/56 L Pulse Oximetry 95 94 L 02/24/18 06:00 02/24/18 07:47 Temperature Pulse Rate 84 Respiratory Rate 27 H Blood Pressure Pulse Oximetry 97 Intake & Output 02/23/18 02/24/18 02/24/18 18:59 06:59 18:59 Intake Total 3280 / 3280 2200 / 2200 Output Total 1500 / 1500 2100 / 2100 Balance 1780 / 1780 100 / 100 Weight 86 kg Intake: IV 1100 / 1100 450 / 450 1/2 Normal Saline Inj 1,000 ML 1000 / 1000 @ 50 mls/hr IV.CONT .Q20H EDE Rx#:[id number] Zosyn 4.5 GM Premix 4.5 gm In 100 / 100 200 / 200 100 ml @ 200 mls/hr IV.SIG Q6H EDE Rx#:[id number] NS Inj 250 ML @ 15 mls/hr IV. 250 / 250 SIG ONCE EDE Rx#:[id number] Tube Feeding 480 / 480 850 / 850 Water Bolus Amount 450 / 450 900 / 900 Other 450 / 450 Rbc As-3 Leukoreduced Unit 250 / 250 [id number] Rbc As-3 Leukoreduced Unit 200 / 200 [id number] Intake (Blood Product) Amt 800 / 800 Rbc As-3 Leukoreduced Unit 400 / 400 [id number] Rbc As-3 Leukoreduced Unit 400 / 400 [id number] Output: Stool 100 / 100 1000 / 1000 Urine Amount (Catheter) 1400 / 1400 1100 / 1100 Indwelling Urethral Catheter 1400 / 1400 1100 / 1100 Other: Other Intake Source Rbc As-3 Leukoreduced Unit Saline Solution [id number] Rbc As-3 Leukoreduced Unit Saline Solution [id number] Result Diagrams: 02/23/18 04:45 02/23/18 04:45 Objective Remarks: GENERAL: Patient is 77 yo encephalopathic, unresponsive on the vent. Eyes are closed. SKIN: Warm and dry. Stage IV sacral decubitus, surrounding buttocks excoriation. HEAD: Normocephalic. Tongue moist. EYES: No scleral icterus. No injection. PRABHA. NECK: Cuffed tracheostomy tube in place. Moderate secretions persist. CARDIOVASCULAR: normal rate, regular rhythm. No JVD. RESPIRATORY: Breath sounds equal bilaterally. Persistent scattered rhonchi GASTROINTESTINAL: Abdomen soft. PEG tube site clean and dry MUSCULOSKELETAL: No cyanosis. Generalized edema. NEURO: Eyes are closed. Unresponsive to stimulation in all 4 limbs. Weak cough reflex. Assessment and Plan - Assessment and Plan Plan: Assessment: Asystole/Cardiac arrest Worsening encephalopathy most likely anoxia contributing Aspiration pneumonia Acute on chronic hypoxemic and hypercapnic resp failure Combined shock, septic and cardiogenic Healthcare associated pneumonia, stenotrophomonas Candidemia UTI with ESBL E. coli Hypernatremia- persistent despite therapy CVA Anemia requiring transfusion Sacral decubitus ulcer s/p NSTEMI Optic neuritis Status post tracheostomy and PEG tube placement Acute protein calorie malnutrition- severe Plan: Impression: Neuro -Acute worsening of encephalopathy secondary to systolic cardiac arrest, anoxia -CT head 02/08/[address] Pereira reconsulted per family request -History of L ENID infarct. Status post systemic TPA on November 09 -Neuropsychology has followed. Continue Ritalin -Optic neuritis. Status post treatment with IV hydrocortisone -Remains unresponsive. CV: -Asystole/cardiac arrest seems secondary to hypoxia and hypercapnia from severe aspiration -s/p IV fluid normal saline 2 L bolus, 2U PRBC -half-normal saline at 100 ml per hour due to hypernatremia, free water flushes at 300 mL every 4 -Continue Coumadin -Echo 10/19: LV systolic function is moderately reduced, EF 40-45%. Cardiology has followed Dr. Hernández -Harishura 2mg daily and Coreg 3.125mg BID on hold due to hypotension. On Lipitor 80mg qhs Pulm: -Cardiac arrest seems to be secondary to respiratory arrest. Evidence of aspiration at the time of arrest -Cuff less tracheostomy tube removed and new Shiley 8 cuffed tracheostomy placed 02/08/18 -PRVC/AC ventilation. DuoNeb every 6 hours scheduled and as needed -Failed CPAP due to apnea -ICU vent bundle. Pulm toilet, trach care. -pseudomonas in sputum culture, On Levaquin for stenotrophomonas, Diflucan for candidemia, meropenem for previous ESBL E Coli HCAP -Antibiotic and antifungal coverage remains appropriate. GI -Currently tube feeds at goal. continue as tolerated. -On Pepcid 10mg BID -Free water flushes 300 mils every 4 hours -Having BMs -Tube feeds at 60 mL's per hour 02/12. -Tube feeds tolerated with acceptable gastric residual -recheck cbc, bmp q48h : -Monitor renal function, electrolytes replacement per protocol ID -Patient was receiving Levaquin for stenotrophomonas, Diflucan for candidemia -Added meropenem 02/08/18 for previous ESBL E. coli HCAP -Previous UTI with ESBL E. coli, Previous healthcare associated pneumonia with Klebsiella and ESBL E. coli -F/U blood and sputum culture and urine culture. pseudomonas in sputum 02/08 -ID Dr. Jalloh following Skin -Sacral wound-Seen by Plastic surgery; debridement declined per patient's family -Wound care is following- apply dressings per wound management recommendations Heme: -Monitor hemoglobin closely. Status post 2 units PRBC on 02/08/2018 now s/p additional 2 units prbc on 02/23 for recurrent anemia. -Previous GI bleed; Status post EGD colonoscopy. GI has signed off, patient with healed rectal ulcers and hemorrhoids. -INR therapeutic Endo -On SSI. Levemir for glycemic control GI prophylaxis- on Pepcid DVT prophylaxis- On Coumadin and adjusted per pharmacy consultation. Overall impression: Patient remains critically ill after aspiration with hypoxemic and hypercarbic respiratory failure leading to asystolic cardiac arrest. Ten minutes of CPR with return of spontaneous circulation after aggressive resuscitation following CPR, patient remains hypoxemic and encephalopathy. Remains unresponsive, weak respiratory effort is ineffective during spontaneous trials, unable to begin weaning from ventilator. Prognosis remains poor. Family unrealistic with goals of care and press on for aggressive measures. no meaningful improvements in months.
[2018-02-24] MEDS: Famotidine 20 MG Tablet PO SCH ×2 (08:00→21:35)
[2018-02-24] MEDS: Polyethylene Glycol 3350 17 GM Packet PO SCH (08:01)
[2018-02-24] MEDS: Hydrocortisone Acetate 25 MG Supp RECTAL SCH ×2 (08:02→21:34)
[2018-02-24] MEDS: Collagenase Oint 30 GM Tube TOPICAL SCH (08:03)
[2018-02-24] MEDS: Insulin Detemir Inj 1,000 UNIT/10 ML Vial SQ SCH ×2 (08:41→21:35)
[2018-02-24] MEDS: Sodium Chloride 0.45 % Inj 1,000 ML IV.CONT SCH ×2 (09:01→19:05)
--- NOTE | 2018-02-24 14:57 | P.PNID ---
Subjective Remarks: remains on vent growing pseudomonas spp fro sputum as well minimal responsiveness RN reports a lot of secretions + occ fever, T max 100 F in the last 24 hrs growing PSAE in the wound Antibiotics: zosyn 4.5 q 6 hrr Lines: Lines ok Past Medical History: reviewed Allergies/Adverse Reactions: Allergies Glucerna 1.5 Adverse Reaction (Uncoded 02/09/18 12:04) Vomiting Objective Vital Signs 02/23/18 15:33 02/23/18 16:00 02/23/18 18:00 Temperature 99.7 F H Pulse Rate 94 H 96 H Respiratory Rate 20 20 Blood Pressure 115/57 L Pulse Oximetry 94 L 95 02/23/18 20:00 02/23/18 20:11 02/23/18 22:00 Temperature 100 F H Pulse Rate 110 H 98 H Respiratory Rate 21 21 Blood Pressure 135/63 Pulse Oximetry 95 94 L 02/23/18 23:36 02/24/18 00:00 02/24/18 02:00 Temperature 98.6 F Pulse Rate 92 H 89 Respiratory Rate 19 21 Blood Pressure 114/61 Pulse Oximetry 96 96 02/24/18 03:06 02/24/18 04:00 02/24/18 06:00 Temperature 97.5 F L Pulse Rate 92 H 84 Respiratory Rate 20 21 Blood Pressure 103/56 L Pulse Oximetry 95 94 L 02/24/18 07:47 02/24/18 08:00 02/24/18 10:00 Temperature 97.0 F L Pulse Rate 90 91 H Respiratory Rate 27 H 27 H Blood Pressure 115/62 Pulse Oximetry 97 97 02/24/18 12:00 02/24/18 12:30 02/24/18 14:00 Temperature 97.5 F L Pulse Rate 85 91 H Respiratory Rate 21 18 Blood Pressure 96/52 L Pulse Oximetry 96 Intake & Output 02/23/18 02/24/18 02/24/18 18:59 06:59 18:59 Intake Total 3280 / 3280 2200 / 2200 1100 / 1100 Output Total 1500 / 1500 2100 / 2100 Balance 1780 / 1780 100 / 100 1100 / 1100 Weight 86 kg Intake: IV 1100 / 1100 450 / 450 1100 / 1100 1/2 Normal Saline Inj 1,000 ML 1000 / 1000 1000 / 1000 @ 100 mls/hr IV.CONT .Q10H [facility] Rx#:[id number] Zosyn 4.5 GM Premix 4.5 gm In 100 / 100 200 / 200 100 / 100 100 ml @ 200 mls/hr IV.SIG Q6H [facility] Rx#:[id number] NS Inj 250 ML @ 15 mls/hr IV. 250 / 250 SIG ONCE EDE Rx#:[id number] Tube Feeding 480 / 480 850 / 850 Water Bolus Amount 450 / 450 900 / 900 Other 450 / 450 Rbc As-3 Leukoreduced Unit 250 / 250 [id number] Rbc As-3 Leukoreduced Unit 200 / 200 [id number] Intake (Blood Product) Amt 800 / 800 Rbc As-3 Leukoreduced Unit 400 / 400 [id number] Rbc As-3 Leukoreduced Unit 400 / 400 [id number] Output: Stool 100 / 100 1000 / 1000 Urine Amount (Catheter) 1400 / 1400 1100 / 1100 Indwelling Urethral Catheter 1400 / 1400 1100 / 1100 Other: Other Intake Source Rbc As-3 Leukoreduced Unit Saline Solution [id number] Rbc As-3 Leukoreduced Unit Saline Solution [id number] Date of Last Bowel Movement 02/22/18 02/23/18 14:00 Sputum - Endotracheal Gram Stain - Final 02/23/18 14:00 Sputum - Endotracheal Sputum Culture - Preliminary Pseudomonas species 02/19/18 17:00 Wound - Leg Gram Stain - Final 02/19/18 17:00 Wound - Leg Wound Culture - Final Pseudomonas aeruginosa 02/08/18 13:15 Blood - Peripheral Blood Fungal Culture - Preliminary No growth in 2 weeks 02/08/18 13:15 Blood - Peripheral Blood Fungal Culture - Final Lab - Hematology Results 02/23/18 04:45 WBC 9.1 RBC 2.48 L Hgb 6.6 L* Hct 20.3 L* MCV 82.2 MCH 26.6 L MCHC 32.3 RDW 20.3 H Plt Count 232 MPV 9.3 Lab - Chemistry Results 02/22/18 02/22/18 02/23/18 18:46 20:26 00:12 Sodium Potassium Chloride Carbon Dioxide Anion Gap BUN Creatinine Estimated GFR POC Glucose 93 105 100 Random Glucose Calcium 02/23/18 02/23/18 02/23/18 04:45 09:07 11:24 Sodium 149 H Potassium 3.9 Chloride 110 H Carbon Dioxide 31.4 Anion Gap 8 BUN 76 H Creatinine 1.37 H Estimated GFR 50 L POC Glucose 161 H 159 H Random Glucose 128 H Calcium 7.7 L 02/23/18 02/23/18 02/23/18 17:32 20:45 23:43 Sodium Potassium Chloride Carbon Dioxide Anion Gap BUN Creatinine Estimated GFR POC Glucose 158 H 142 H 127 H Random Glucose Calcium 02/24/18 02/24/18 02/24/18 05:31 08:10 13:01 Sodium Potassium Chloride Carbon Dioxide Anion Gap BUN Creatinine Estimated GFR POC Glucose 130 H 108 109 Random Glucose Calcium Imaging: ITS Impressions Chest CT 01/03/18 00:00 CONCLUSION: 1. Large bilateral pleural effusions occupying more than half of the right and left hemithorax. Abdomen/Pelvis CT 01/13/18 00:00 CONCLUSION: 1. Small bilateral pleural effusions and basilar infiltrates with bilateral chest tubes in place. 2. No evidence of ascites or bowel dilatation. Abdomen/Bladder Ultrasound 01/15/18 00:00 CONCLUSION: 1. Negative renal sonogram. Abdomen X-Ray 02/08/18 00:00 CONCLUSION: 1. Nonobstructive bowel gas pattern. 2. Gastrostomy tube in the left upper abdominal quadrant Head CT 02/08/18 00:00 CONCLUSION: 1. Stable prominent senescent changes with mild to moderate periventricular ischemic white matter demyelination. 2. No acute intracranial abnormality.. Head MRI 02/10/18 00:00 CONCLUSION: 1. No acute findings. Extensive cortical volume loss. Moderate white matter ischemic changes. No recent infarct. Chest X-Ray 02/24/18 06:00 CONCLUSION: No significant change. Physical Exam: GENERAL: unresponsive On vent SKIN: Warm and dry. No rash HEAD: Normocephalic. EYES: No scleral icterus. No injection or drainage. NECK: Supple, trachea midline. + trach in place with large amount of drainage CARDIOVASCULAR: RRR. No murmurs, rubs, gallops RESPIRATORY: Breath sounds equal bilaterally. No accessory muscle use. scattered rhonchi GASTROINTESTINAL: Abdomen soft, non-tender, nondistended. +PEG tube in place MUSCULOSKELETAL: No cyanosis, improved pitting edema. GUl; garcia in place with yellow urine Neuro: obtunded unresponsive no eye contact, not follws commands non vernbal Assessment and Plan - Plan Sacral decub with possible underlying infection, osteomyelitis. growing PSAE S zosyn Possible HCAP - growing PSAE GNR UTI ? ESBL given h/o ESBL. 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 Encephalopathy: strokes in hospital, optic neuritis on presentation. Fungemia, C. tropicalis cont zosyn fu sputum clx , fu S on the isolate repeat CXR dw dgtr dw RN
--- NOTE | 2018-02-24 17:08 | P.PN ---
Subjective Interval history: NO CHANGE UNRESPONSIVE ON VENT SUPPORT Physical Exam Vital signs: Vital Signs 02/23/18 18:00 02/23/18 20:00 02/23/18 20:11 Temperature 100 F H Pulse Rate 96 H 110 H Respiratory Rate 21 21 Blood Pressure 135/63 Pulse Oximetry 95 94 L 02/23/18 22:00 02/23/18 23:36 02/24/18 00:00 Temperature 98.6 F Pulse Rate 98 H 92 H Respiratory Rate 19 21 Blood Pressure 114/61 Pulse Oximetry 96 96 02/24/18 02:00 02/24/18 03:06 02/24/18 04:00 Temperature 97.5 F L Pulse Rate 89 92 H Respiratory Rate 20 21 Blood Pressure 103/56 L Pulse Oximetry 95 94 L 02/24/18 06:00 02/24/18 07:47 02/24/18 08:00 Temperature 97.0 F L Pulse Rate 84 90 Respiratory Rate 27 H 27 H Blood Pressure 115/62 Pulse Oximetry 97 97 02/24/18 10:00 02/24/18 12:00 02/24/18 12:30 Temperature 97.5 F L Pulse Rate 91 H 85 Respiratory Rate 21 18 Blood Pressure 96/52 L Pulse Oximetry 96 02/24/18 14:00 02/24/18 15:36 02/24/18 16:00 Temperature 96.8 F L Pulse Rate 91 H 85 Respiratory Rate 21 18 Blood Pressure 90/57 L Pulse Oximetry 96 97 Intake & Output 02/23/18 02/24/18 02/24/18 18:59 06:59 18:59 Intake Total 3280 / 3280 2200 / 2200 1100 / 1100 Output Total 1500 / 1500 2100 / 2100 Balance 1780 / 1780 100 / 100 1100 / 1100 Weight 86 kg Intake: IV 1100 / 1100 450 / 450 1100 / 1100 1/2 Normal Saline Inj 1,000 ML 1000 / 1000 1000 / 1000 @ 100 mls/hr IV.CONT .Q10H [facility] Rx#:[id number] Zosyn 4.5 GM Premix 4.5 gm In 100 / 100 200 / 200 100 / 100 100 ml @ 200 mls/hr IV.SIG Q6H [facility] Rx#:[id number] NS Inj 250 ML @ 15 mls/hr IV. 250 / 250 SIG ONCE EDE Rx#:[id number] Tube Feeding 480 / 480 850 / 850 Water Bolus Amount 450 / 450 900 / 900 Other 450 / 450 Rbc As-3 Leukoreduced Unit 250 / 250 [id number] Rbc As-3 Leukoreduced Unit 200 / 200 [id number] Intake (Blood Product) Amt 800 / 800 Rbc As-3 Leukoreduced Unit 400 / 400 [id number] Rbc As-3 Leukoreduced Unit 400 / 400 [id number] Output: Stool 100 / 100 1000 / 1000 Urine Amount (Catheter) 1400 / 1400 1100 / 1100 Indwelling Urethral Catheter 1400 / 1400 1100 / 1100 Other: Other Intake Source Rbc As-3 Leukoreduced Unit Saline Solution [id number] Rbc As-3 Leukoreduced Unit Saline Solution [id number] Date of Last Bowel Movement 02/22/18 Narrative: GENERAL:on vent support male patient, UNRESPONSIVE. . SKIN: Warm and dry. +sacral decub per wound care notes. HEAD: Atraumatic. Normocephalic. EYES: Pupils equal and round. No scleral icterus. No injection or drainage. ENT: No nasal bleeding or discharge. Mucous membranes pink and moist. NECK: Trachea midline. Trach in place. CARDIOVASCULAR: Regular rate and rhythm. RESPIRATORY: No accessory muscle use. Clear to auscultation. Breath sounds equal bilaterally. GASTROINTESTINAL: Abdomen soft, non-tender, nondistended. PEG in place. GENITOURINARY: [place] in place - placed 01/21 MUSCULOSKELETAL: Extremities without clubbing, cyanosis, or edema. NEUROLOGICAL: Awake. Unable to follow commands. Nonverbal. PSYCHIATRIC: Calm. - Urinary Catheter Management Straight Cath placed during this visit: yes Urethral indwelling: Yes Reason for continuing: Acute urinary retention Insertion date: 01/21/18 Insertion time: 08:00 Indwelling Urethral Catheter Cath placed during this visit: yes, but has since been removed by the nurse Urethral indwelling: Yes Reason for continuing: Acute urinary retention Insertion date: 01/21/18 Insertion time: 16:18 Removal date: 01/20/18 Removal time: 15:15 Results - Labs CBC & Chem 7: 02/23/18 04:45 02/23/18 04:45 Laboratory Results - last 24 hr 02/23/18 02/23/18 02/23/18 17:32 20:45 23:43 PT INR POC Glucose 158 H 142 H 127 H 02/24/18 02/24/18 02/24/18 05:00 05:31 08:10 PT 18.3 H INR 1.8 POC Glucose 130 H 108 02/24/18 13:01 PT INR POC Glucose 109 Microbiology 02/23/18 14:00 Sputum - Endotracheal Gram Stain - Final 02/23/18 14:00 Sputum - Endotracheal Sputum Culture - Preliminary Pseudomonas species - Imaging Impressions Chest X-Ray 02/24/18 06:00 CONCLUSION: No significant change. Assessment and Plan - Plan RESPIRATORY FAILURE S/P cva S/P [place] S/P trach ACUTE ASPIRATION plan VENT SUPPORT PULM TOILET ANTIBX PER ID [facility]
[2018-02-24] MEDS: Hyoscyamine Liq Drops 0.125 MG/ML 15 ML Bottle SL PRN (21:38)
[2018-02-25] MEDS: Insulin NovoLIN Regular Correctional Sugar Inj SQ SCH ×4 (01:42→18:07)
[2018-02-25] MEDS: Piperacil/Tazo 4.5 GM Premix 4.5 GM/100 ML BAG IV.SIG SCH ×4 (02:00→20:08)
[2018-02-25 05:57] LABS: INR 1.8 Ratio; Prothrombin Time 18.3 sec (9.8-11.6)
[2018-02-25 06:17] LABS: Hematocrit 24.6 % (39.0-51.0); Hemoglobin 8.3 gm/dL (13.0-17.0); Mean Corpuscular HGB Conc 33.7 % (32.0-36.0); Mean Corpuscular Hemoglobin 27.8 pg (27.0-34.0); Mean Corpuscular Volume 82.6 fL (80.0-100.0); Mean Platelet Volume 9.4 fL (7.0-11.0); Platelet Count 238 th/mm3 (150-450); Red Blood Count 2.97 mil/mm3 (4.50-5.90); Red Cell Distribution Width 19.1 % (11.6-17.2); White Blood Count 8.2 th/mm3 (4.0-11.0)
[2018-02-25 06:18] LABS: Calcium 7.8 mg/dL (8.5-10.1); Carbon Dioxide 29.4 meq/L (21.0-32.0); Potassium 3.7 meq/L (3.5-5.1)
--- NOTE | 2018-02-25 07:18 | P.PNCC ---
Subjective Subjective Remarks/Hospital Course: This is a 77-year-old male who initially presented with vision changes and concern for optic neuritis versus temporal arteritis. His initial presentation was on 10/14. His hospital course has been complicated by an NSTEMI with troponins which peaked at 10, ESBL E. coli urinary tract infection, rectal bleeding suspected from bleeding hemorrhoids, acute anemia secondary to blood loss with hemoglobin started around 14 and is trended down to 9.7 this morning. On his initial MRA he was found to have significant atherosclerotic cerebrovascular disease in all vascular territories. Today, he had an acute mental status change and was obtunded. Rapid response and stroke alert was called. His initial NIH stroke scale was 22. Dr. goldstein had conversations with Dr. Ulloa and neurology as well as Dr. sierra with gastroenterology. GI feels comfortable with giving thrombolytics and neurology feels strongly that this patient would benefit from systemic IV TPA therapy. I evaluated the patient on arrival to the intensive care unit. The patient is arousable, but very somnolent. He is [place] speaking, and it is very difficult to ascertain whether or not he can follow commands. He does move all extremities spontaneously, although it appears that his left side is weaker than his right. He has noted facial droop. CT head is negative for acute hemorrhage. CTA head neck is significant for the same multivessel cerebrovascular disease that was present on admission. Given the high-risk nature of the stroke as well as his acute anemia this hospitalization, in preparation for giving emergent IV systemic TPA, I placed an arterial line as well as a large-bore peripheral IV so that we could draw serial labs, monitor his hemoglobin, and give blood products if necessary. I also had an additional discussion with the family where I reconfirmed that their goals were aggressive and they fully understood the significant risk of life-threatening hemorrhage associated with systemic TPA in a patient with new anemia and suspected GI bleeding. The family expressed understanding of his condition and understanding of the heightened risk of life-threatening bleeding, but still urged that we needed to get TPA. Immediately after giving IV TPA, patient had a tonic clonic seizure (witnessed on EEG) and became obtunded with acute hypoxic and hypercarbic respiratory failure and was emergently intubated (see separate procedure note for details). 11/10: remains intubated. encephalopathy persists. hgb stable s/p TPA. ~350cc bloody OG tube output, but this is slowing down. 11/11: more awake. on SBT. follows commands. 11/12: remains extubated. off vasopressors. no changes in mental status. 11/18/17 CCM Reconsult Note Patient was transferred to ICU today after a Halicat was called for AMS, hypoxia , high fever. Apparently patient was lethargic since a.m. in the last hour had been unresponsive and hence Halicat was called. Patient had a fever of 101.4 in a.m., T-max is 101.6. I immediately evaluated the patient in the ICU. Patient is completely unresponsive, oxygen saturation 87% on 4 L nasal cannula. Hypopneic. No response to deep pain. Patient was confirmed to be a full code and I proceeded with endotracheal intubation place him on mechanical ventilation as patient was not protecting airway. More history was obtained from discussion with ID Dr. Jalloh. She indicated patient had been increasingly lethargic with fever and also had urinary retention.She has discontinued Ertapenem, and started on meropenem, vancomycin and micafungin. Cultures have been sent and are pending now. Source of sepsis appears to be aspiration pneumonia versus UTI. Repeat UA and panculture pending at this time. Patient was borderline hypotensive prior to intubation and I have started on Levophed to avoid hypotension post intubation. Receiving 1 L normal saline bolus now, give additional fluid bolus if patient requires continued Levophed will place central line 11/19: remains intubated. holding aggrenox for possible thoracentesis today, but family hesitant to consent with concerns over bleeding risk. Cr remains elevated. discussion with Dr. Bernal, unlikely to benefit currently from draining effusion, so at his recommendation, will proceed with attempted weaning from mechanical ventilation and treat effusion conservatively. 11/20: Overnight /early this a.m. ,the patient was noted to have large amount of rectal bleeding. Aggrenox held since 11/18, 2/2 reintubation. Type and screen ordered. Serial H&H currently be performed. Hemodynamically stable. GI has been reconsulted. Protonix previously given PRN, will schedule BID. Patient was reintubated emergently 11/18, plan for continue CPAP trials. Tube feedings until evaluation by GI. ASA placed on hold , in the setting of GI bleeding. 11/21: EGD and colonoscopy performed yesterday. Patient was noted to be constipated ,disimpacted per GI. Patient noted to have hemorrhoids which was clipped. No further bleeding throughout the night. Chest x-ray showed improvement. CPAP trials initiated this a.m.. ASA 81 mg resumed. 11/22: Patient tolerated CPAP trials approximately 13 hours yesterday. Initiation of tube feeds per GI yesterday, no residuals. This am , family concerned patient not responsive. CT brain , ammonia level and EEG pending. Neurology has been reconsulted. Upon my entering the room, this afternoon, the patient was awake, tracking and squeezing my hand upon commands, with right hand. The patient received 1 u PRBC for Hgb 7.2. Post transfusion CBC pending. Plan for quantification of pleural fluid for possible thoracentesis in a.m.. 11/23: No acute events overnight. Patient remains off all sedation. Noted spontaneous eye opening, tracking following commands squeezing hands right greater than left. Neurology following plan for MRI this a.m., repeat EEG pending. Hemoglobin stable this a.m.. Chest x-ray slight improvement, plan for quantification via ultrasound of pleural effusions for possible thoracentesis today. 3 failed attempts at CPAP trials yesterday. 1548-MRI resulted findings consistent of small areas of acute cortical infarct, new since 11/09/2017. I contacted neurology, Dr. Geronimo informed of results. After Dr. Palma's review of imaging and records, it was determined most likely cardioembolic since is affecting both sides and failure with aspirin and Persantine. Ischemic stroke heparin protocol initiated. Careful review secondary to patient history of GI bleed 11/20, thought to be emanating from hemorrhoid ,however due to poor suboptimal prep, they unable to have optimal visualization per Dr. Jones. 11/24: Late entry note. Patient seen and evaluated 614. No acute events overnight. Patient continues on heparin infusion no active signs of bleeding. PTT within therapeutic range. The patient is less responsive this a.m., spontaneous eye opening, not following my commands. Not moving his extremities spontaneously for me as previously performed yesterday. tube feeds reinitiated. Chest x-ray showed further improvement in aeration of lungs the patient continues on FiO2 of 0.35. Plan for CPAP trials today. 11/25: No acute events overnight. Neurological status unchanged. Spontaneous eye opening patient continues not following any commands. Dr. Geronimo at bedside evaluating patient, no change. Patient tolerated CPAP trials approximately 12 hours yesterday. Tolerating tube feeds. Chest x-ray remains unchanged from yesterday. Hemoccult stool negative. Heparin infusion continued. family at bedside. 11/26: Late entry note. Patient seen at 1240pm. Last night the patient was noted to be continuously hyperglycemic. Levemir added to medication regimen 10 mg/day hemoglobin dropped 2 g/dL in 2 days hemoglobin now 7.7, patient to be transfused 1 unit packed red blood. No obvious signs of bleeding Hemoccult was negative. Patient continues on heparin infusion, patient may require tracheostomy and PEG in the near future . Plan to transition to p.o. anticoagulation post procedures. Neurologically the status is unchanged the patient is opens eyes spontaneously no movement of extremities upon my evaluation. Continued CPAP trials currently greater than 6 hours. 11/27: At 1000am, the patient was noted to have melena, approximated at 150 cc per RN evaluation. Heparin infusion discontinued/placed on hold at 10 AM. Stool for Hemoccult blood sent, GI was contacted and informed of the above events. Stat CT of the abdomen and pelvis with p.o. contrast ordered, results pending. Patient previously had been tolerating trickle feeds at 10 cc an hour with no residuals, after initiation of Reglan 5 mg every 8 hours yesterday. Neurologically the patient status is unchanged. Patient does have spontaneous eye opening but does not follow my commands and does not move extremities. Patient's daughter is at bedside, discussed the above events at which she was present for, she is requesting a repeat colonoscopy. I informed her that a CT of the abdomen and pelvis will be obtained, serial hemoglobin will be evaluated and if needed transfusion will be provided and gastroenterology has been contacted and will determine further management if an invasive procedure is required. Hemoglobin continues to be monitored serially, results pending for 10 AM. The patient received 1 unit packed red blood cells, and current hemoglobin trended overnight 8.9 to 8.2 this a.m., posttransfusion. 11/28: hgb continues to decline despite being off heparin. no additional GI interventions are available at this time. clearly the patient has failed anticoagulation with 2 life-threatening bleeding episodes. Although it is clear he may have additional strokes off anticoagulation, we have clear evidence that we are hurting his overall clinical care with his anticoagulation. I explained this at length to the daughter and medical decision maker. however, she insists that she would rather see him of bleeding rather than have any more strokes , and insists that "we can always keep giving him blood". I explained that blood is not without risk, and there is significant risk to anticoagulation, but she is insistent that he be given anticoagulation to prevent further strokes and she has weighed the risks and benefits after having full informed consent, insists upon us restarting the heparin drip. At her insistence, I have restarted it. In addition, I have counseled her that I do not think he will survive this hospitalization, and he will require tracheostomy for further aggressive care. She states that we are not at "day 14" on the vent, and it is not time for a tracheostomy yet. This is a second intubation and we are certainly at risk for complications from endotracheal intubation, and tracheostomy would be the most appropriate next step for this patient, but the family is refusing until WednesdayDecember 01. 11/29 Patient remains intubated, on no sedation. Afebrile. 11/30 No events overnight. Patient tolerated CPAP for most of day yesterday. Remains on Heparin drip. 12/01 Patient remains intubated tolerated CPAP for several hrs yesterday. s/p CT guided right thoracentesis with removal 500ml pleural fluid. On Heparin drip 12/02 No events overnight. Heparin drip stopped this morning for trach and PEG placement today. Afebrile. 12/03 Patient s/p trach and PEG tube placement yesterday. Had bleeding from around trach and PEG tube insertion sites Heparin drip held last night. s/p transfusion 1u PRBC yesterday Hgb 8.0 this morning. Afebrile. On no sedation. 12/04: Continues to have bruising from PEG tube insertion site. Trach site appears to have stopped. Hemoglobin 7 the same receiving 1 unit FFP and 1 PRBCs. Tube feeds of been resumed. On no sedation. 12/05: Afebrile. No further bleeding noted from the tracheostomy site. Overnight reported by the RN that the PEG tube site continues to bleed Surgicel was placed around the opening, small amount of bleeding still noted. Patient hemoglobin remained 7 patient to be transfused 1 unit PRBC's fibrinogen level pending INR within normal limits. 12/06 Patient s/p transfusion 2u PRBC yesterday Hgb 9.5 this morning from 7.2 last night. No bleeding from trach site however patient still having rectal bleeding. 12/07 No events overnight. On ventilator via trach Hgb 9.8 this morning for colonoscopy today. 12/08: seen and examined around 06:30am. no significant change in mental status. hgb 8.9 this AM. remains on heparin drip at [facility]. 12/09: no improvements or changes. very deconditioned. garcia has remained in without clear indication. had 1 episode of urinary retention, but this is a clear source of infection and an additional serious infection would certainly be life-threatening. 12/10 Patient is now on TP's with 28% FIO2, Afebrile. On Heparin drip. 12/11: remains on t-piece x > 48h. no change in neuro exam. remains on heparin drip with stable hgb 7.8. 12/12: asked to see patient again today by the hospitalist service for change in condition. I have evaluated the patient and he does not clinically appear any different than yesterday. HR actually lower than yesterday. bladder scan suggestive of 600cc retention. patient has had urinary retention before, although has also had multiple hospital acquired urinary tract infections. risk/ benefit at this time would be in favor of serial q6h straight catheterizations. remains hemodynamically stable. some emesis today and evidence of ileus. 12/31 Reconsult for resp distress Patient is 77 yo with chronic resp failure, trach/PEG tube placement, CVA transferred to [facility] for resp distress trach changes to #6 and patient was placed on mechanical ventilation. CXR showed increasing consolidation patient was given Lasix prior to arrival to [facility]. 01/01 Patient is on ventilator via trach. Afebrile. 01/02 No events overnight. On no drips, Afebrile, CPAP 15/5 with 35% FIO2 overnight. 01/03 Remained on TP breathing comfortably. CXR shows bilateral effusions. Will get CT chest. Give single dose of lasix. ID consulted and following, no fever in 24 hours 01/04: Remains unresponsive, fever trending down. Sputum culture now growing Klebsiella and ESBL E. coli. Urine culture and wound culture also growing ESBL E. coli. Chest tube placed on the right side yesterday with 1.35 L output since placement. Urine output excellent with single dose of Lasix 2.5 L in 24 hours. No fever in 24 hours. Repeat 40 mg IV Lasix 1 [facility] RECONSULT NOTE 02/08/18: Mr. Glynn is a 77-year-old man who is known to our service. In short, he was initially admitted with possible optic neuritis versus temporal arteritis in September. Care complicated by an STEMI, multiple infections with healthcare associated pneumonia UTIs. During hospitalization he also received TPA for Stroke, MRI of the brain performed on 12/24/2017, showed infarction involving the left corpus callosum and splenium of the corpus callosum. The patient had undergone tracheostomy placement. And since last month had been on hospitalist service and off ventilator. He is currently receiving Levaquin for stenotrophomonas infection, Diflucan for candidemia. Apparently patient was noted to aspirate earlier this a.m. At 7250 AM patient was found unresponsive pulseless rhythm asystole and CPR was started. Total 3 amp of epinephrine given. Patient had a cuff less trach with evidence of aspiration, large amount of tube feeds aspirated from tracheostomy tube. This was exchanged for a 8.0 Shiley tracheostomy cuffed. With improved bag and mask ventilation and after 3 epinephrine, 1 amp of calcium, 1 amp of bicarb, patient regained ROSC SUBJ 02/09/18: Remains very critical not on any sedation he is unresponsive eyes are spontaneously open but no tracking. Very slight withdrawal to pain on the upper extremities. CT of the head unremarkable. Currently borderline hypotensive off pressors. Received 2 units of PRBC for hemoglobin 6.6 yesterday. Prognosis remained poor. Neurology consulted per family request 02/10/18: Remains critical with no improvement in neuro status or clinical status. Eyes are spontaneously open but no response to threat no tracking. Neurology consulted MRI and EEG pending at this time. Currently remains on Levophed at 1 mcg/min. Chest x-ray with bilateral infiltrates sputum culture growing GNR. Na 155. Free water flushes and half-normal saline rate increased. 02/11: Remains unresponsive off all sedation. Osmolality slowly returning to baseline. Antibiotics appropriate for organism. Tube feeds tolerated at 50 mL' s per hour. Unable to wean from mechanical ventilation. 02/12: Osmolality slowly returning to baseline. Tube feeds now tolerated at 60 mL's per hour. Unable to wean from mechanical ventilation due to fatigue. 02/13: Placed on spontaneous breathing trial this morning but required 18 of pressure support to maintain an adequate minute volume. Will work from this point and attempt to wean pressure support over the next many days. Will place back on mechanical rate nightly. Anticoagulation is been particularly cumbersome and made more difficult by Diflucan. Will restart Coumadin again this morning as INR is declined to 2.2 02/14: Remains very weak. Essentially unresponsive. Tolerates brief periods of spontaneous breathing trial blood pressure support must be markedly elevated to the 1820 range. State of hydration gradually improving as osmolality declines and serum creatinine improves. Will continue hypotonic solutions IV. 02/15: Remains unresponsive. Continues to fail spontaneous breathing trials due to lack of respiratory effort. Suffers from tachypnea with an efficient small tidal volumes regardless of the amount of pressure support. 02/16: Onset of copious watery diarrhea is contaminating buttock wounds. We will insert a dignity shield system for fecal management. Remains unresponsive to noxious stimulation. He does have a weak cough reflex. 02/17: Patient is weaker on attempts at spontaneous breathing trials today. Patient remains unresponsive. Only reaction is a weak cough to suctioning. 02/18: Patient continues to do poorly on attempts at spontaneous breathing trials. Urine output is improved with diuresis, will follow renal function closely. 02/19: Albumin 1.1, further evidence that the patient is deteriorating. Responds to diuretics but prerenal azotemia quickly develops. 02/20: Ongoing attempts to remove excess soft tissue and pleural water consistently resolved and renal impairment. Unfortunately this is largely caused by his poor nutritional status. Despite sufficient nutritional support he continues to deteriorate clinically. 02/21: no improvements in function. still grossly anasarca. Cr worsening again. hypernatremia persists. 02/22: no changes. intermittently tachycardic. still gently diuresing. outlook poor. Subjective: 02/23: no improvements. anemic this AM requiring transfusion of prbc. Family refuses to allow the holding of anticoagulation given multiple recent CVA, so anticoagulation will continue despite anemia. remains hypernatremic despite therapy. 02/24: no changes or improvements. HR came down with transfusion of prbc yesterday. 02/25: hgb stable. Cr worsens slightly. metabolic derangements have improved somewhat and sodium improving. no improvement in neurologic status. poor prognosis. Objective Vital Signs / I&O: Vital Signs 02/24/18 07:47 02/24/18 08:00 02/24/18 10:00 Temperature 36.1 C L Pulse Rate 90 91 H Respiratory Rate 27 H 27 H Blood Pressure 115/62 Pulse Oximetry 97 97 02/24/18 12:00 02/24/18 12:30 02/24/18 14:00 Temperature 36.4 C L Pulse Rate 85 91 H Respiratory Rate 21 18 Blood Pressure 96/52 L Pulse Oximetry 96 02/24/18 15:36 02/24/18 16:00 02/24/18 18:00 Temperature 36.0 C L Pulse Rate 85 85 Respiratory Rate 21 18 Blood Pressure 90/57 L Pulse Oximetry 96 97 02/24/18 20:00 02/24/18 20:06 02/24/18 22:00 Temperature 36.4 C L Pulse Rate 88 90 Respiratory Rate 16 19 Blood Pressure 115/63 Pulse Oximetry 98 97 02/25/18 00:00 02/25/18 00:35 02/25/18 02:00 Temperature 36.6 C Pulse Rate 90 85 Respiratory Rate 18 15 Blood Pressure 100/57 L Pulse Oximetry 96 96 02/25/18 03:49 02/25/18 04:00 02/25/18 06:00 Temperature 36.7 C Pulse Rate 90 88 Respiratory Rate 17 19 Blood Pressure 104/59 L Pulse Oximetry 97 98 Intake & Output 02/24/18 02/25/18 02/25/18 18:59 06:59 18:59 Intake Total 2304 / 2304 2606 / 2606 Output Total 2050 / 2050 1550 / 1550 Balance 254 / 254 1056 / 1056 Weight 88.2 kg Intake: IV 1200 / 1200 1200 / 1200 1/2 Normal Saline Inj 1,000 ML 1000 / 1000 1000 / 1000 @ 100 mls/hr IV.CONT .Q10H EDE Rx#:[id number] Zosyn 4.5 GM Premix 4.5 gm In 200 / 200 200 / 200 100 ml @ 200 mls/hr IV.SIG Q6H EDE Rx#:[id number] Oral 0 / 0 Tube Feeding 444 / 444 446 / 446 Tube Irrigant 60 / 60 60 / 60 Water Bolus Amount 600 / 600 900 / 900 Output: Stool 50 / 50 50 / 50 Urine Amount (Catheter) 1999 1500 / 1500 Indwelling Urethral Catheter 1999 1500 / 1500 Other: Date of Last Bowel Movement 02/24/18 02/24/18 # Bowel Movements 1 # Incontinent Bowel Movements 0 Result Diagrams: 02/25/18 05:00 02/25/18 05:00 Objective Remarks: GENERAL: Patient is 77 yo encephalopathic, unresponsive on the vent. Eyes are closed. SKIN: Warm and dry. Stage IV sacral decubitus, surrounding buttocks excoriation. HEAD: Normocephalic. Tongue moist. EYES: No scleral icterus. No injection. PRABHA. NECK: Cuffed tracheostomy tube in place. Moderate secretions persist. CARDIOVASCULAR: normal rate, regular rhythm. No JVD. RESPIRATORY: Breath sounds equal bilaterally. Persistent scattered rhonchi GASTROINTESTINAL: Abdomen soft. PEG tube site clean and dry MUSCULOSKELETAL: No cyanosis. Generalized edema. NEURO: Eyes are closed. Unresponsive to stimulation in all 4 limbs. Weak cough reflex. Assessment and Plan - Assessment and Plan Plan: Assessment: Asystole/Cardiac arrest Worsening encephalopathy most likely anoxia contributing Aspiration pneumonia Acute on chronic hypoxemic and hypercapnic resp failure Combined shock, septic and cardiogenic Healthcare associated pneumonia, stenotrophomonas Candidemia UTI with ESBL E. coli Hypernatremia- persistent despite therapy CVA Anemia requiring transfusion Sacral decubitus ulcer s/p NSTEMI Optic neuritis Status post tracheostomy and PEG tube placement Acute protein calorie malnutrition- severe Plan: Impression: Neuro -Acute worsening of encephalopathy secondary to systolic cardiac arrest, anoxia -CT head 02/08/[address] Pereira reconsulted per family request -History of L ENID infarct. Status post systemic TPA on November 09 -Neuropsychology has followed. Continue Ritalin -Optic neuritis. Status post treatment with IV hydrocortisone -Remains unresponsive. CV: -Asystole/cardiac arrest seems secondary to hypoxia and hypercapnia from severe aspiration -s/p IV fluid normal saline 2 L bolus, 2U PRBC -half-normal saline back off to 75 ml per hour due to hypernatremia, free water flushes at 300 mL every 4 -Continue Coumadin -Echo 10/19: LV systolic function is moderately reduced, EF 40-45%. Cardiology has followed Dr. Hernández -Cardura 2mg daily and Coreg 3.125mg BID on hold due to hypotension. On Lipitor 80mg qhs Pulm: -Cardiac arrest seems to be secondary to respiratory arrest. Evidence of aspiration at the time of arrest -Cuff less tracheostomy tube removed and new Shiley 8 cuffed tracheostomy placed 02/08/18 -PRVC/AC ventilation. DuoNeb every 6 hours scheduled and as needed -Failed CPAP due to apnea -ICU vent bundle. Pulm toilet, trach care. -pseudomonas in sputum culture, On Levaquin for stenotrophomonas, Diflucan for candidemia, meropenem for previous ESBL E Coli HCAP -Antibiotic and antifungal coverage remains appropriate. GI -Currently tube feeds at goal. continue as tolerated. -On Pepcid 10mg BID -Free water flushes 300 mils every 4 hours -Having BMs -Tube feeds at 60 mL's per hour 02/12. -Tube feeds tolerated with acceptable gastric residual -recheck cbc, bmp q48h : -Monitor renal function, electrolytes replacement per protocol ID -Patient was receiving Levaquin for stenotrophomonas, Diflucan for candidemia -Added meropenem 02/08/18 for previous ESBL E. coli HCAP -Previous UTI with ESBL E. coli, Previous healthcare associated pneumonia with Klebsiella and ESBL E. coli -F/U blood and sputum culture and urine culture. pseudomonas in sputum 02/08 -ID Dr. Jalloh following Skin -Sacral wound-Seen by Plastic surgery; debridement declined per patient's family -Wound care is following- apply dressings per wound management recommendations Heme: -Status post 2 units PRBC on 02/08/2018 now s/p additional 2 units prbc on 02/23 for recurrent anemia. -Previous GI bleed; Status post EGD colonoscopy. GI has signed off, patient with healed rectal ulcers and hemorrhoids. -INR therapeutic Endo -On SSI. Levemir for glycemic control GI prophylaxis- on Pepcid DVT prophylaxis- On Coumadin and adjusted per pharmacy consultation. Overall impression: Patient remains critically ill after aspiration with hypoxemic and hypercarbic respiratory failure leading to asystolic cardiac arrest. Ten minutes of CPR with return of spontaneous circulation after aggressive resuscitation following CPR, patient remains hypoxemic and encephalopathy. Remains unresponsive, weak respiratory effort is ineffective during spontaneous trials, unable to begin weaning from ventilator. Prognosis remains poor. Family unrealistic with goals of care and press on for aggressive measures. no meaningful improvements in months.
[2018-02-25] MEDS: Sodium Chloride 0.45 % Inj 1,000 ML IV.CONT SCH ×2 (08:49→18:07)
[2018-02-25] MEDS: Hydrocortisone Acetate 25 MG Supp RECTAL SCH ×2 (08:50→20:09)
[2018-02-25] MEDS: Insulin Detemir Inj 1,000 UNIT/10 ML Vial SQ SCH ×2 (08:50→20:09)
[2018-02-25] MEDS: Famotidine 20 MG Tablet PO SCH ×2 (08:50→20:08)
[2018-02-25] MEDS: Polyethylene Glycol 3350 17 GM Packet PO SCH (08:50)
[2018-02-25] MEDS: Collagenase Oint 30 GM Tube TOPICAL SCH (08:56)
--- NOTE | 2018-02-25 15:26 | P.PN ---
Subjective Interval history: unresponsive on vent support Physical Exam Vital signs: Vital Signs 02/24/18 15:36 02/24/18 16:00 02/24/18 18:00 Temperature 96.8 F L Pulse Rate 85 85 Respiratory Rate 21 18 Blood Pressure 90/57 L Pulse Oximetry 96 97 02/24/18 20:00 02/24/18 20:06 02/24/18 22:00 Temperature 97.5 F L Pulse Rate 88 90 Respiratory Rate 16 19 Blood Pressure 115/63 Pulse Oximetry 98 97 02/25/18 00:00 02/25/18 00:35 02/25/18 02:00 Temperature 97.9 F Pulse Rate 90 85 Respiratory Rate 18 15 Blood Pressure 100/57 L Pulse Oximetry 96 96 02/25/18 03:49 02/25/18 04:00 02/25/18 06:00 Temperature 98.1 F Pulse Rate 90 88 Respiratory Rate 17 19 Blood Pressure 104/59 L Pulse Oximetry 97 98 02/25/18 08:00 02/25/18 08:40 02/25/18 10:00 Temperature 97.9 F Pulse Rate 88 88 Respiratory Rate 20 25 H Blood Pressure 101/53 L Pulse Oximetry 97 99 02/25/18 11:33 02/25/18 12:00 02/25/18 14:00 Temperature 97.2 F L Pulse Rate 85 87 Respiratory Rate 27 H 21 Blood Pressure 124/62 Pulse Oximetry 97 98 02/25/18 15:20 Temperature Pulse Rate Respiratory Rate 25 H Blood Pressure Pulse Oximetry 97 Intake & Output 02/24/18 02/25/18 02/25/18 18:59 06:59 18:59 Intake Total 2304 / 2304 3556 / 3556 100 / 100 Output Total 2050 / 2050 1550 / 1550 Balance 254 / 254 2005 / 2005 100 / 100 Weight 88.2 kg Intake: IV 1200 / 1200 2150 / 2150 100 / 100 1/2 Normal Saline Inj 1,000 ML 1000 / 1000 1950 / 1950 @ 75 mls/hr IV.CONT .[id number] EDE Rx#:[id number] Zosyn 4.5 GM Premix 4.5 gm In 200 / 200 200 / 200 100 / 100 100 ml @ 200 mls/hr IV.SIG Q6H EDE Rx#:[id number] Oral 0 / 0 Tube Feeding 444 / 444 446 / 446 Tube Irrigant 60 / 60 60 / 60 Water Bolus Amount 600 / 600 900 / 900 Output: Stool 50 / 50 50 / 50 Urine Amount (Catheter) 1999 1500 / 1500 Indwelling Urethral Catheter 1999 1500 / 1500 Other: Date of Last Bowel Movement 02/24/18 02/24/18 02/24/18 # Bowel Movements 1 # Incontinent Bowel Movements 0 - Urinary Catheter Management Straight Cath placed during this visit: yes Urethral indwelling: Yes Reason for continuing: Acute urinary retention Insertion date: 01/21/18 Insertion time: 08:00 Indwelling Urethral Catheter Cath placed during this visit: yes, but has since been removed by the nurse Urethral indwelling: Yes Reason for continuing: Acute urinary retention Insertion date: 01/21/18 Insertion time: 16:18 Removal date: 01/20/18 Removal time: 15:15 Results - Labs CBC & Chem 7: 02/25/18 05:00 02/25/18 05:00 Laboratory Results - last 24 hr 02/24/18 02/24/18 02/25/18 17:38 20:39 05:00 WBC 8.2 RBC 2.97 L Hgb 8.3 L Hct 24.6 L MCV 82.6 MCH 27.8 MCHC 33.7 RDW 19.1 H Plt Count 238 MPV 9.4 PT INR Sodium Potassium Chloride Carbon Dioxide Anion Gap BUN Creatinine Estimated GFR POC Glucose 125 H 145 H Random Glucose Calcium 02/25/18 02/25/18 02/25/18 05:00 05:00 05:17 WBC RBC Hgb Hct MCV MCH MCHC RDW Plt Count MPV PT 18.3 H INR 1.8 Sodium 142 Potassium 3.7 Chloride 102 Carbon Dioxide 29.4 Anion Gap 11 BUN 81 H Creatinine 1.49 H Estimated GFR 46 L POC Glucose 228 H Random Glucose 210 H Calcium 7.8 L 02/25/18 02/25/18 08:27 11:32 WBC RBC Hgb Hct MCV MCH MCHC RDW Plt Count MPV PT INR Sodium Potassium Chloride Carbon Dioxide Anion Gap BUN Creatinine Estimated GFR POC Glucose 250 H 262 H Random Glucose Calcium Microbiology 02/23/18 14:00 Sputum - Endotracheal Gram Stain - Final 02/23/18 14:00 Sputum - Endotracheal Sputum Culture - Preliminary Pseudomonas species Assessment and Plan - Plan RESPIRATORY FAILURE S/P cva S/P CT S/P trach ACUTE ASPIRATION plan VENT SUPPORT PULM TOILET ANTIBX PER ID [facility]
[2018-02-26] MEDS: Insulin NovoLIN Regular Correctional Sugar Inj SQ SCH ×4 (00:22→17:21)
[2018-02-26] MEDS: Piperacil/Tazo 4.5 GM Premix 4.5 GM/100 ML BAG IV.SIG SCH ×3 (02:24→14:30)
[2018-02-26] MEDS: Sodium Chloride 0.45 % Inj 1,000 ML IV.CONT SCH ×2 (04:27→16:58)
[2018-02-26 04:28] LABS: INR 1.9 Ratio; Prothrombin Time 19.4 sec (9.8-11.6)
[2018-02-26] MEDS: Insulin Detemir Inj 1,000 UNIT/10 ML Vial SQ SCH ×2 (08:53→20:29)
[2018-02-26] MEDS: Hydrocortisone Acetate 25 MG Supp RECTAL SCH ×2 (08:54→20:29)
[2018-02-26] MEDS: Famotidine 20 MG Tablet PO SCH ×2 (08:54→20:30)
[2018-02-26] MEDS: Polyethylene Glycol 3350 17 GM Packet PO SCH (08:54)
[2018-02-26] MEDS: Collagenase Oint 30 GM Tube TOPICAL SCH (08:59)
--- NOTE | 2018-02-26 09:05 | P.PNCC ---
Subjective Subjective Remarks/Hospital Course: This is a 77-year-old male who initially presented with vision changes and concern for optic neuritis versus temporal arteritis. His initial presentation was on 10/14. His hospital course has been complicated by an NSTEMI with troponins which peaked at 10, ESBL E. coli urinary tract infection, rectal bleeding suspected from bleeding hemorrhoids, acute anemia secondary to blood loss with hemoglobin started around 14 and is trended down to 9.7 this morning. On his initial MRA he was found to have significant atherosclerotic cerebrovascular disease in all vascular territories. Today, he had an acute mental status change and was obtunded. Rapid response and stroke alert was called. His initial NIH stroke scale was 22. Dr. goldstein had conversations with Dr. Ulloa and neurology as well as Dr. sierra with gastroenterology. GI feels comfortable with giving thrombolytics and neurology feels strongly that this patient would benefit from systemic IV TPA therapy. I evaluated the patient on arrival to the intensive care unit. The patient is arousable, but very somnolent. He is Italian speaking, and it is very difficult to ascertain whether or not he can follow commands. He does move all extremities spontaneously, although it appears that his left side is weaker than his right. He has noted facial droop. CT head is negative for acute hemorrhage. CTA head neck is significant for the same multivessel cerebrovascular disease that was present on admission. Given the high-risk nature of the stroke as well as his acute anemia this hospitalization, in preparation for giving emergent IV systemic TPA, I placed an arterial line as well as a large-bore peripheral IV so that we could draw serial labs, monitor his hemoglobin, and give blood products if necessary. I also had an additional discussion with the family where I reconfirmed that their goals were aggressive and they fully understood the significant risk of life-threatening hemorrhage associated with systemic TPA in a patient with new anemia and suspected GI bleeding. The family expressed understanding of his condition and understanding of the heightened risk of life-threatening bleeding, but still urged that we needed to get TPA. Immediately after giving IV TPA, patient had a tonic clonic seizure (witnessed on EEG) and became obtunded with acute hypoxic and hypercarbic respiratory failure and was emergently intubated (see separate procedure note for details). 11/10: remains intubated. encephalopathy persists. hgb stable s/p TPA. ~350cc bloody OG tube output, but this is slowing down. 11/11: more awake. on SBT. follows commands. 11/12: remains extubated. off vasopressors. no changes in mental status. 11/18/17 CCM Reconsult Note Patient was transferred to ICU today after a Halicat was called for AMS, hypoxia , high fever. Apparently patient was lethargic since a.m. in the last hour had been unresponsive and hence Halicat was called. Patient had a fever of 101.4 in a.m., T-max is 101.6. I immediately evaluated the patient in the ICU. Patient is completely unresponsive, oxygen saturation 87% on 4 L nasal cannula. Hypopneic. No response to deep pain. Patient was confirmed to be a full code and I proceeded with endotracheal intubation place him on mechanical ventilation as patient was not protecting airway. More history was obtained from discussion with ID Dr. Jalloh. She indicated patient had been increasingly lethargic with fever and also had urinary retention.She has discontinued Ertapenem, and started on meropenem, vancomycin and micafungin. Cultures have been sent and are pending now. Source of sepsis appears to be aspiration pneumonia versus UTI. Repeat UA and panculture pending at this time. Patient was borderline hypotensive prior to intubation and I have started on Levophed to avoid hypotension post intubation. Receiving 1 L normal saline bolus now, give additional fluid bolus if patient requires continued Levophed will place central line 11/19: remains intubated. holding aggrenox for possible thoracentesis today, but family hesitant to consent with concerns over bleeding risk. Cr remains elevated. discussion with Dr. Bernal, unlikely to benefit currently from draining effusion, so at his recommendation, will proceed with attempted weaning from mechanical ventilation and treat effusion conservatively. 11/20: Overnight /early this a.m. ,the patient was noted to have large amount of rectal bleeding. Aggrenox held since 11/18, 2/2 reintubation. Type and screen ordered. Serial H&H currently be performed. Hemodynamically stable. GI has been reconsulted. Protonix previously given PRN, will schedule BID. Patient was reintubated emergently 11/18, plan for continue CPAP trials. Tube feedings until evaluation by GI. ASA placed on hold , in the setting of GI bleeding. 11/21: EGD and colonoscopy performed yesterday. Patient was noted to be constipated ,disimpacted per GI. Patient noted to have hemorrhoids which was clipped. No further bleeding throughout the night. Chest x-ray showed improvement. CPAP trials initiated this a.m.. ASA 81 mg resumed. 11/22: Patient tolerated CPAP trials approximately 13 hours yesterday. Initiation of tube feeds per GI yesterday, no residuals. This am , family concerned patient not responsive. CT brain , ammonia level and EEG pending. Neurology has been reconsulted. Upon my entering the room, this afternoon, the patient was awake, tracking and squeezing my hand upon commands, with right hand. The patient received 1 u PRBC for Hgb 7.2. Post transfusion CBC pending. Plan for quantification of pleural fluid for possible thoracentesis in a.m.. 11/23: No acute events overnight. Patient remains off all sedation. Noted spontaneous eye opening, tracking following commands squeezing hands right greater than left. Neurology following plan for MRI this a.m., repeat EEG pending. Hemoglobin stable this a.m.. Chest x-ray slight improvement, plan for quantification via ultrasound of pleural effusions for possible thoracentesis today. 3 failed attempts at CPAP trials yesterday. 1548-MRI resulted findings consistent of small areas of acute cortical infarct, new since 11/09/2017. I contacted neurology, Dr. Geronimo informed of results. After Dr. Palma's review of imaging and records, it was determined most likely cardioembolic since is affecting both sides and failure with aspirin and Persantine. Ischemic stroke heparin protocol initiated. Careful review secondary to patient history of GI bleed 11/20, thought to be emanating from hemorrhoid ,however due to poor suboptimal prep, they unable to have optimal visualization per Dr. Jones. 11/24: Late entry note. Patient seen and evaluated 614. No acute events overnight. Patient continues on heparin infusion no active signs of bleeding. PTT within therapeutic range. The patient is less responsive this a.m., spontaneous eye opening, not following my commands. Not moving his extremities spontaneously for me as previously performed yesterday. tube feeds reinitiated. Chest x-ray showed further improvement in aeration of lungs the patient continues on FiO2 of 0.35. Plan for CPAP trials today. 11/25: No acute events overnight. Neurological status unchanged. Spontaneous eye opening patient continues not following any commands. Dr. Geronimo at bedside evaluating patient, no change. Patient tolerated CPAP trials approximately 12 hours yesterday. Tolerating tube feeds. Chest x-ray remains unchanged from yesterday. Hemoccult stool negative. Heparin infusion continued. family at bedside. 11/26: Late entry note. Patient seen at 1240pm. Last night the patient was noted to be continuously hyperglycemic. Levemir added to medication regimen 10 mg/day hemoglobin dropped 2 g/dL in 2 days hemoglobin now 7.7, patient to be transfused 1 unit packed red blood. No obvious signs of bleeding Hemoccult was negative. Patient continues on heparin infusion, patient may require tracheostomy and PEG in the near future . Plan to transition to p.o. anticoagulation post procedures. Neurologically the status is unchanged the patient is opens eyes spontaneously no movement of extremities upon my evaluation. Continued CPAP trials currently greater than 6 hours. 11/27: At 1000am, the patient was noted to have melena, approximated at 150 cc per RN evaluation. Heparin infusion discontinued/placed on hold at 10 AM. Stool for Hemoccult blood sent, GI was contacted and informed of the above events. Stat CT of the abdomen and pelvis with p.o. contrast ordered, results pending. Patient previously had been tolerating trickle feeds at 10 cc an hour with no residuals, after initiation of Reglan 5 mg every 8 hours yesterday. Neurologically the patient status is unchanged. Patient does have spontaneous eye opening but does not follow my commands and does not move extremities. Patient's daughter is at bedside, discussed the above events at which she was present for, she is requesting a repeat colonoscopy. I informed her that a CT of the abdomen and pelvis will be obtained, serial hemoglobin will be evaluated and if needed transfusion will be provided and gastroenterology has been contacted and will determine further management if an invasive procedure is required. Hemoglobin continues to be monitored serially, results pending for 10 AM. The patient received 1 unit packed red blood cells, and current hemoglobin trended overnight 8.9 to 8.2 this a.m., posttransfusion. 11/28: hgb continues to decline despite being off heparin. no additional GI interventions are available at this time. clearly the patient has failed anticoagulation with 2 life-threatening bleeding episodes. Although it is clear he may have additional strokes off anticoagulation, we have clear evidence that we are hurting his overall clinical care with his anticoagulation. I explained this at length to the daughter and medical decision maker. however, she insists that she would rather see him of bleeding rather than have any more strokes , and insists that "we can always keep giving him blood". I explained that blood is not without risk, and there is significant risk to anticoagulation, but she is insistent that he be given anticoagulation to prevent further strokes and she has weighed the risks and benefits after having full informed consent, insists upon us restarting the heparin drip. At her insistence, I have restarted it. In addition, I have counseled her that I do not think he will survive this hospitalization, and he will require tracheostomy for further aggressive care. She states that we are not at "day 14" on the vent, and it is not time for a tracheostomy yet. This is a second intubation and we are certainly at risk for complications from endotracheal intubation, and tracheostomy would be the most appropriate next step for this patient, but the family is refusing until WednesdayDecember 01. 11/29 Patient remains intubated, on no sedation. Afebrile. 11/30 No events overnight. Patient tolerated CPAP for most of day yesterday. Remains on Heparin drip. 12/01 Patient remains intubated tolerated CPAP for several hrs yesterday. s/p CT guided right thoracentesis with removal 500ml pleural fluid. On Heparin drip 12/02 No events overnight. Heparin drip stopped this morning for trach and PEG placement today. Afebrile. 12/03 Patient s/p trach and PEG tube placement yesterday. Had bleeding from around trach and PEG tube insertion sites Heparin drip held last night. s/p transfusion 1u PRBC yesterday Hgb 8.0 this morning. Afebrile. On no sedation. 12/04: Continues to have bruising from PEG tube insertion site. Trach site appears to have stopped. Hemoglobin 7 the same receiving 1 unit FFP and 1 PRBCs. Tube feeds of been resumed. On no sedation. 12/05: Afebrile. No further bleeding noted from the tracheostomy site. Overnight reported by the RN that the PEG tube site continues to bleed Surgicel was placed around the opening, small amount of bleeding still noted. Patient hemoglobin remained 7 patient to be transfused 1 unit PRBC's fibrinogen level pending INR within normal limits. 12/06 Patient s/p transfusion 2u PRBC yesterday Hgb 9.5 this morning from 7.2 last night. No bleeding from trach site however patient still having rectal bleeding. 12/07 No events overnight. On ventilator via trach Hgb 9.8 this morning for colonoscopy today. 12/08: seen and examined around 06:30am. no significant change in mental status. hgb 8.9 this AM. remains on heparin drip at [facility]. 12/09: no improvements or changes. very deconditioned. garcia has remained in without clear indication. had 1 episode of urinary retention, but this is a clear source of infection and an additional serious infection would certainly be life-threatening. 12/10 Patient is now on TP's with 28% FIO2, Afebrile. On Heparin drip. 12/11: remains on t-piece x > 48h. no change in neuro exam. remains on heparin drip with stable hgb 7.8. 12/12: asked to see patient again today by the hospitalist service for change in condition. I have evaluated the patient and he does not clinically appear any different than yesterday. HR actually lower than yesterday. bladder scan suggestive of 600cc retention. patient has had urinary retention before, although has also had multiple hospital acquired urinary tract infections. risk/ benefit at this time would be in favor of serial q6h straight catheterizations. remains hemodynamically stable. some emesis today and evidence of ileus. 12/31 Reconsult for resp distress Patient is 77 yo with chronic resp failure, trach/PEG tube placement, CVA transferred to [facility] for resp distress trach changes to #6 and patient was placed on mechanical ventilation. CXR showed increasing consolidation patient was given Lasix prior to arrival to [facility]. 01/01 Patient is on ventilator via trach. Afebrile. 01/02 No events overnight. On no drips, Afebrile, CPAP 15/5 with 35% FIO2 overnight. 01/03 Remained on TP breathing comfortably. CXR shows bilateral effusions. Will get CT chest. Give single dose of lasix. ID consulted and following, no fever in 24 hours 01/04: Remains unresponsive, fever trending down. Sputum culture now growing Klebsiella and ESBL E. coli. Urine culture and wound culture also growing ESBL E. coli. Chest tube placed on the right side yesterday with 1.35 L output since placement. Urine output excellent with single dose of Lasix 2.5 L in 24 hours. No fever in 24 hours. Repeat 40 mg IV Lasix 1 [facility] RECONSULT NOTE 02/08/18: Mr. Glynn is a 77-year-old man who is known to our service. In short, he was initially admitted with possible optic neuritis versus temporal arteritis in September. Care complicated by an STEMI, multiple infections with healthcare associated pneumonia UTIs. During hospitalization he also received TPA for Stroke, MRI of the brain performed on 12/24/2017, showed infarction involving the left corpus callosum and splenium of the corpus callosum. The patient had undergone tracheostomy placement. And since last month had been on hospitalist service and off ventilator. He is currently receiving Levaquin for stenotrophomonas infection, Diflucan for candidemia. Apparently patient was noted to aspirate earlier this a.m. At 7250 AM patient was found unresponsive pulseless rhythm asystole and CPR was started. Total 3 amp of epinephrine given. Patient had a cuff less trach with evidence of aspiration, large amount of tube feeds aspirated from tracheostomy tube. This was exchanged for a 8.0 Shiley tracheostomy cuffed. With improved bag and mask ventilation and after 3 epinephrine, 1 amp of calcium, 1 amp of bicarb, patient regained ROSC SUBJ 02/09/18: Remains very critical not on any sedation he is unresponsive eyes are spontaneously open but no tracking. Very slight withdrawal to pain on the upper extremities. CT of the head unremarkable. Currently borderline hypotensive off pressors. Received 2 units of PRBC for hemoglobin 6.6 yesterday. Prognosis remained poor. Neurology consulted per family request 02/10/18: Remains critical with no improvement in neuro status or clinical status. Eyes are spontaneously open but no response to threat no tracking. Neurology consulted MRI and EEG pending at this time. Currently remains on Levophed at 1 mcg/min. Chest x-ray with bilateral infiltrates sputum culture growing GNR. Na 155. Free water flushes and half-normal saline rate increased. 02/11: Remains unresponsive off all sedation. Osmolality slowly returning to baseline. Antibiotics appropriate for organism. Tube feeds tolerated at 50 mL' s per hour. Unable to wean from mechanical ventilation. 02/12: Osmolality slowly returning to baseline. Tube feeds now tolerated at 60 mL's per hour. Unable to wean from mechanical ventilation due to fatigue. 02/13: Placed on spontaneous breathing trial this morning but required 18 of pressure support to maintain an adequate minute volume. Will work from this point and attempt to wean pressure support over the next many days. Will place back on mechanical rate nightly. Anticoagulation is been particularly cumbersome and made more difficult by Diflucan. Will restart Coumadin again this morning as INR is declined to 2.2 02/14: Remains very weak. Essentially unresponsive. Tolerates brief periods of spontaneous breathing trial blood pressure support must be markedly elevated to the 1820 range. State of hydration gradually improving as osmolality declines and serum creatinine improves. Will continue hypotonic solutions IV. 02/15: Remains unresponsive. Continues to fail spontaneous breathing trials due to lack of respiratory effort. Suffers from tachypnea with an efficient small tidal volumes regardless of the amount of pressure support. 02/16: Onset of copious watery diarrhea is contaminating buttock wounds. We will insert a dignity shield system for fecal management. Remains unresponsive to noxious stimulation. He does have a weak cough reflex. 02/17: Patient is weaker on attempts at spontaneous breathing trials today. Patient remains unresponsive. Only reaction is a weak cough to suctioning. 02/18: Patient continues to do poorly on attempts at spontaneous breathing trials. Urine output is improved with diuresis, will follow renal function closely. 02/19: Albumin 1.1, further evidence that the patient is deteriorating. Responds to diuretics but prerenal azotemia quickly develops. 02/20: Ongoing attempts to remove excess soft tissue and pleural water consistently resolved and renal impairment. Unfortunately this is largely caused by his poor nutritional status. Despite sufficient nutritional support he continues to deteriorate clinically. 02/21: no improvements in function. still grossly anasarca. Cr worsening again. hypernatremia persists. 02/22: no changes. intermittently tachycardic. still gently diuresing. outlook poor. Subjective: 02/23: no improvements. anemic this AM requiring transfusion of prbc. Family refuses to allow the holding of anticoagulation given multiple recent CVA, so anticoagulation will continue despite anemia. remains hypernatremic despite therapy. 02/24: no changes or improvements. HR came down with transfusion of prbc yesterday. 02/25: hgb stable. Cr worsens slightly. metabolic derangements have improved somewhat and sodium improving. no improvement in neurologic status. poor prognosis. 02/26: [facility] No improvement in neuro status. Objective Vital Signs / I&O: Vital Signs 02/25/18 10:00 02/25/18 11:33 02/25/18 12:00 Temperature 97.2 F L Pulse Rate 88 85 Respiratory Rate 27 H 21 Blood Pressure 124/62 Pulse Oximetry 97 98 02/25/18 14:00 02/25/18 15:20 02/25/18 16:00 Temperature 96.6 F L Pulse Rate 87 86 Respiratory Rate 25 H 25 H Blood Pressure 108/58 L Pulse Oximetry 97 98 02/25/18 17:47 02/25/18 20:00 02/25/18 20:45 Temperature 96.4 F L Pulse Rate 84 84 Respiratory Rate 24 23 Blood Pressure 119/66 Pulse Oximetry 98 96 02/25/18 22:00 02/26/18 00:00 02/26/18 02:00 Temperature 98.8 F Pulse Rate 86 89 90 Respiratory Rate 24 Blood Pressure 115/61 Pulse Oximetry 97 02/26/18 04:00 02/26/18 04:17 02/26/18 06:00 Temperature 99.3 F Pulse Rate 90 86 Respiratory Rate 21 19 Blood Pressure 114/57 L Pulse Oximetry 98 02/26/18 08:09 Temperature Pulse Rate Respiratory Rate 18 Blood Pressure Pulse Oximetry 97 Intake & Output 02/25/18 02/26/18 02/26/18 18:59 06:59 18:59 Intake Total 1576 / 1576 2520 / 2520 Output Total 2050 / 2050 1450 / 1450 Balance -474 / -474 1070 / 1070 Weight 89.8 kg Intake: IV 1000 / 1000 1200 / 1200 1/2 Normal Saline Inj 1,000 ML 800 / 800 1000 / 1000 @ 75 mls/hr IV.CONT .[id number] EDE Rx#:[id number] Zosyn 4.5 GM Premix 4.5 gm In 200 / 200 200 / 200 100 ml @ 200 mls/hr IV.SIG Q6H EDE Rx#:[id number] Tube Feeding 576 / 576 640 / 640 Tube Irrigant 80 / 80 Water Bolus Amount 600 / 600 Output: Stool 100 / 100 250 / 250 Urine Amount (Catheter) 1949 1200 / 1200 Indwelling Urethral Catheter 1949 1200 / 1200 Other: Date of Last Bowel Movement 02/25/18 02/26/18 Result Diagrams: 02/25/18 05:00 02/25/18 05:00 Objective Remarks: GENERAL: Patient is 77 yo encephalopathic, unresponsive on the vent. Eyes are closed. SKIN: Warm and dry. Stage IV sacral decubitus, surrounding buttocks excoriation. HEAD: Normocephalic. Tongue moist. EYES: No scleral icterus. No injection. PRABHA. NECK: Cuffed tracheostomy tube in place. Moderate secretions persist. CARDIOVASCULAR: normal rate, regular rhythm. No JVD. RESPIRATORY: Breath sounds equal bilaterally. Persistent scattered rhonchi GASTROINTESTINAL: Abdomen soft. PEG tube site clean and dry MUSCULOSKELETAL: No cyanosis. Generalized edema. NEURO: Eyes are closed. Unresponsive to stimulation in all 4 limbs. Weak cough reflex. Assessment and Plan - Assessment and Plan Plan: Assessment: Asystole/Cardiac arrest Worsening encephalopathy most likely anoxia contributing Aspiration pneumonia Acute on chronic hypoxemic and hypercapnic resp failure Combined shock, septic and cardiogenic Healthcare associated pneumonia, stenotrophomonas Candidemia UTI with ESBL E. coli Hypernatremia- persistent despite therapy CVA Anemia requiring transfusion Sacral decubitus ulcer s/p NSTEMI Optic neuritis Status post tracheostomy and PEG tube placement Acute protein calorie malnutrition- severe Plan: Impression: Neuro -Acute worsening of encephalopathy secondary to systolic cardiac arrest, anoxia -CT head 02/08/[address] Pereira reconsulted per family request -History of L ENID infarct. Status post systemic TPA on November 09 -Neuropsychology has followed. Continue Ritalin -Optic neuritis. Status post treatment with IV hydrocortisone -Remains unresponsive. CV: -Asystole/cardiac arrest seems secondary to hypoxia and hypercapnia from severe aspiration -s/p IV fluid normal saline 2 L bolus, 2U PRBC -half-normal saline back off to 75 ml per hour due to hypernatremia, free water flushes at 300 mL every 4 -Continue Coumadin -Echo 10/19: LV systolic function is moderately reduced, EF 40-45%. Cardiology has followed Dr. Betty CoxCardura 2mg daily and Coreg 3.125mg BID on hold due to hypotension. On Lipitor 80mg qhs Pulm: -Cardiac arrest seems to be secondary to respiratory arrest. Evidence of aspiration at the time of arrest -Cuff less tracheostomy tube removed and new Shiley 8 cuffed tracheostomy placed 02/08/18 -PRVC/AC ventilation. DuoNeb every 6 hours scheduled and as needed -Failed CPAP due to apnea -ICU vent bundle. Pulm toilet, trach care. -pseudomonas in sputum culture, On Levaquin for stenotrophomonas, Diflucan for candidemia, meropenem for previous ESBL E Coli HCAP -Antibiotic and antifungal coverage remains appropriate. GI -Currently tube feeds at goal. continue as tolerated. -On Pepcid 10mg BID -Free water flushes 300 mils every 4 hours -Having BMs -Tube feeds at 60 mL's per hour 02/12. -Tube feeds tolerated with acceptable gastric residual -recheck cbc, bmp q48h : -Monitor renal function, electrolytes replacement per protocol ID -Patient was receiving Levaquin for stenotrophomonas, Diflucan for candidemia -Added meropenem 02/08/18 for previous ESBL E. coli HCAP -Previous UTI with ESBL E. coli, Previous healthcare associated pneumonia with Klebsiella and ESBL E. coli -F/U blood and sputum culture and urine culture. pseudomonas in sputum 02/08 -ID Dr. Jalloh following Skin -Sacral wound-Seen by Plastic surgery; debridement declined per patient's family -Wound care is following- apply dressings per wound management recommendations Heme: -Status post 2 units PRBC on 02/08/2018 now s/p additional 2 units prbc on 02/23 for recurrent anemia. -Previous GI bleed; Status post EGD colonoscopy. GI has signed off, patient with healed rectal ulcers and hemorrhoids. -INR therapeutic Endo -On SSI. Levemir for glycemic control GI prophylaxis- on Pepcid DVT prophylaxis- On Coumadin and adjusted per pharmacy consultation. Overall impression: Patient remains critically ill after aspiration with hypoxemic and hypercarbic respiratory failure leading to asystolic cardiac arrest. Ten minutes of CPR with return of spontaneous circulation after aggressive resuscitation following CPR, patient remains hypoxemic and encephalopathy. Remains unresponsive, weak respiratory effort is ineffective during spontaneous trials, unable to begin weaning from ventilator. Prognosis remains poor. Family unrealistic with goals of care and press on for aggressive measures. no meaningful improvements in months.
--- NOTE | 2018-02-26 15:41 | P.PN ---
Subjective Interval history: UNRESPONSIVE ON VENT SUPPORT Physical Exam Vital signs: Vital Signs 02/25/18 16:00 02/25/18 17:47 02/25/18 20:00 Temperature 96.6 F L 96.4 F L Pulse Rate 86 84 84 Respiratory Rate 25 H 24 Blood Pressure 108/58 L 119/66 Pulse Oximetry 98 98 02/25/18 20:45 02/25/18 22:00 02/26/18 00:00 Temperature 98.8 F Pulse Rate 86 89 Respiratory Rate 23 24 Blood Pressure 115/61 Pulse Oximetry 96 97 02/26/18 02:00 02/26/18 04:00 02/26/18 04:17 Temperature 99.3 F Pulse Rate 90 90 Respiratory Rate 21 19 Blood Pressure 114/57 L Pulse Oximetry 98 02/26/18 06:00 02/26/18 08:00 02/26/18 08:09 Temperature 96.4 F L Pulse Rate 86 90 Respiratory Rate 21 18 Blood Pressure 115/60 Pulse Oximetry 98 97 02/26/18 10:00 02/26/18 11:56 02/26/18 12:00 Temperature 96.1 F L Pulse Rate 85 90 Respiratory Rate 17 21 Blood Pressure 113/64 Pulse Oximetry 98 98 02/26/18 14:00 Temperature Pulse Rate 89 Respiratory Rate Blood Pressure Pulse Oximetry Intake & Output 02/25/18 02/26/18 02/26/18 18:59 06:59 18:59 Intake Total 1576 / 1576 2520 / 2520 100 / 100 Output Total 2049 / 2049 1450 / 1450 Balance -474 / -474 1070 / 1070 100 / 100 Weight 89.8 kg Intake: IV 1000 / 1000 1200 / 1200 100 / 100 1/2 Normal Saline Inj 1,000 ML 800 / 800 1000 / 1000 @ 75 mls/hr IV.CONT .[id number] [facility] Rx#:[id number] Zosyn 4.5 GM Premix 4.5 gm In 200 / 200 200 / 200 100 / 100 100 ml @ 200 mls/hr IV.SIG Q6H [facility] Rx#:[id number] Tube Feeding 576 / 576 640 / 640 Tube Irrigant 80 / 80 Water Bolus Amount 600 / 600 Output: Stool 100 / 100 250 / 250 Urine Amount (Catheter) 1949 1200 / 1200 Indwelling Urethral Catheter 1950 / 1950 1200 / 1200 Other: Date of Last Bowel Movement 02/25/18 02/26/18 02/26/18 Narrative: GENERAL:on vent support male patient, UNRESPONSIVE. . SKIN: Warm and dry. +sacral decub per wound care notes. HEAD: Atraumatic. Normocephalic. EYES: Pupils equal and round. No scleral icterus. No injection or drainage. ENT: No nasal bleeding or discharge. Mucous membranes pink and moist. NECK: Trachea midline. Trach in place. CARDIOVASCULAR: Regular rate and rhythm. RESPIRATORY: No accessory muscle use. Clear to auscultation. Breath sounds equal bilaterally. GASTROINTESTINAL: Abdomen soft, non-tender, nondistended. PEG in place. GENITOURINARY: [place] in place - placed 01/21 MUSCULOSKELETAL: Extremities without clubbing, cyanosis, or edema. NEUROLOGICAL: Awake. Unable to follow commands. Nonverbal. PSYCHIATRIC: Calm. - Urinary Catheter Management Straight Cath placed during this visit: yes Urethral indwelling: Yes Reason for continuing: Acute urinary retention Insertion date: 01/21/18 Insertion time: 08:00 Indwelling Urethral Catheter Cath placed during this visit: yes, but has since been removed by the nurse Urethral indwelling: Yes Reason for continuing: Acute urinary retention Insertion date: 01/21/18 Insertion time: 16:18 Removal date: 01/20/18 Removal time: 15:15 Results - Labs CBC & Chem 7: 02/25/18 05:00 02/25/18 05:00 Laboratory Results - last 24 hr 02/25/18 02/25/18 02/26/18 18:04 19:57 00:08 PT INR POC Glucose 227 H 223 H 250 H 02/26/18 02/26/18 02/26/18 03:29 06:02 11:42 PT 19.4 H INR 1.9 POC Glucose 196 H 210 H Microbiology 02/23/18 14:00 Sputum - Endotracheal Gram Stain - Final 02/23/18 14:00 Sputum - Endotracheal Sputum Culture - Preliminary Pseudomonas species Assessment and Plan - Plan RESPIRATORY FAILURE S/P cva S/P MA S/P trach ACUTE ASPIRATION plan VENT SUPPORT PULM TOILET ANTIBX PER ID OUTLOOK POOR
[2018-02-26] MEDS: Ceftazidime/Avibactam Inj 1.25 GM in Sodium Chlor 0.9% Inj 50 ML IV.SIG SCH (18:09)
--- NOTE | 2018-02-26 18:13 | P.PNID ---
Subjective Remarks: remains on vent, tolerates CPAP 40% growing MDRO pseudomonas spp fro sputum as well minimal responsiveness RN reports a lot of secretions hypothermic 96.1 today Antibiotics: zosyn 4.5 q 6 hrr Lines: PIV Lines ok Past Medical History: reviewed Allergies/Adverse Reactions: Allergies Glucerna 1.5 Adverse Reaction (Uncoded 02/09/18 12:04) Vomiting Objective Vital Signs 02/25/18 20:00 02/25/18 20:45 02/25/18 22:00 Temperature 96.4 F L Pulse Rate 84 86 Respiratory Rate 24 23 Blood Pressure 119/66 Pulse Oximetry 98 96 02/26/18 00:00 02/26/18 02:00 02/26/18 04:00 Temperature 98.8 F 99.3 F Pulse Rate 89 90 90 Respiratory Rate 24 21 Blood Pressure 115/61 114/57 L Pulse Oximetry 97 98 02/26/18 04:17 02/26/18 06:00 02/26/18 08:00 Temperature 96.4 F L Pulse Rate 86 90 Respiratory Rate 19 21 Blood Pressure 115/60 Pulse Oximetry 98 02/26/18 08:09 02/26/18 10:00 02/26/18 11:56 Temperature Pulse Rate 85 Respiratory Rate 18 17 Blood Pressure Pulse Oximetry 97 98 02/26/18 12:00 02/26/18 14:00 02/26/18 16:00 Temperature 96.1 F L 96.1 F L Pulse Rate 90 89 90 Respiratory Rate 21 21 Blood Pressure 113/64 113/64 Pulse Oximetry 98 98 02/26/18 16:42 02/26/18 17:35 Temperature Pulse Rate 89 Respiratory Rate 20 Blood Pressure Pulse Oximetry 97 Intake & Output 02/25/18 02/26/18 02/26/18 18:59 06:59 18:59 Intake Total 1576 / 1576 2520 / 2520 1570 / 1570 Output Total 2049 / 2050 1450 / 1450 2200 / 2200 Balance -474 / -474 1070 / 1070 -630 / -630 Weight 89.8 kg Intake: IV 1000 / 1000 1200 / 1200 1100 / 1100 1/2 Normal Saline Inj 1,000 ML 800 / 800 1000 / 1000 1000 / 1000 @ 75 mls/hr IV.CONT .[id number] [facility] Rx#:[id number] Zosyn 4.5 GM Premix 4.5 gm In 200 / 200 200 / 200 100 / 100 100 ml @ 200 mls/hr IV.SIG Q6H [facility] Rx#:[id number] Tube Feeding 576 / 576 640 / 640 420 / 420 Tube Irrigant 80 / 80 50 / 50 Water Bolus Amount 600 / 600 Output: Stool 100 / 100 250 / 250 200 / 200 Urine Amount (Catheter) 1949 1200 1999 Indwelling Urethral Catheter 1949 Other: Date of Last Bowel Movement 02/25/18 02/26/18 02/26/18 02/23/18 14:00 Sputum - Endotracheal Gram Stain - Final 02/23/18 14:00 Sputum - Endotracheal Sputum Culture - Final Pseudomonas aeruginosa Multidrug Resistant Lab - Hematology Results 02/25/18 05:00 WBC 8.2 RBC 2.97 L Hgb 8.3 L Hct 24.6 L MCV 82.6 MCH 27.8 MCHC 33.7 RDW 19.1 H Plt Count 238 MPV 9.4 Lab - Chemistry Results 02/24/18 02/25/18 02/25/18 20:39 05:00 05:17 Sodium 142 Potassium 3.7 Chloride 102 Carbon Dioxide 29.4 Anion Gap 11 BUN 81 H Creatinine 1.49 H Estimated GFR 46 L POC Glucose 145 H 228 H Random Glucose 210 H Calcium 7.8 L 02/25/18 02/25/18 02/25/18 08:27 11:32 18:04 Sodium Potassium Chloride Carbon Dioxide Anion Gap BUN Creatinine Estimated GFR POC Glucose 250 H 262 H 227 H Random Glucose Calcium 02/25/18 02/26/18 02/26/18 19:57 00:08 06:02 Sodium Potassium Chloride Carbon Dioxide Anion Gap BUN Creatinine Estimated GFR POC Glucose 223 H 250 H 196 H Random Glucose Calcium 02/26/18 02/26/18 11:42 17:14 Sodium Potassium Chloride Carbon Dioxide Anion Gap BUN Creatinine Estimated GFR POC Glucose 210 H 202 H Random Glucose Calcium Imaging: ITS Impressions Chest CT 01/03/18 00:00 CONCLUSION: 1. Large bilateral pleural effusions occupying more than half of the right and left hemithorax. Abdomen/Pelvis CT 01/13/18 00:00 CONCLUSION: 1. Small bilateral pleural effusions and basilar infiltrates with bilateral chest tubes in place. 2. No evidence of ascites or bowel dilatation. Abdomen/Bladder Ultrasound 01/15/18 00:00 CONCLUSION: 1. Negative renal sonogram. Abdomen X-Ray 02/08/18 00:00 CONCLUSION: 1. Nonobstructive bowel gas pattern. 2. Gastrostomy tube in the left upper abdominal quadrant Head CT 02/08/18 00:00 CONCLUSION: 1. Stable prominent senescent changes with mild to moderate periventricular ischemic white matter demyelination. 2. No acute intracranial abnormality.. Head MRI 02/10/18 00:00 CONCLUSION: 1. No acute findings. Extensive cortical volume loss. Moderate white matter ischemic changes. No recent infarct. Chest X-Ray 02/24/18 06:00 CONCLUSION: No significant change. Physical Exam: GENERAL: unresponsive On vent SKIN: Warm and dry. No rash HEAD: Normocephalic. EYES: No scleral icterus. No injection or drainage. NECK: Supple, trachea midline. + trach in place with large amount of drainage CARDIOVASCULAR: RRR. No murmurs, rubs, gallops RESPIRATORY: Breath sounds equal bilaterally. No accessory muscle use. scattered rhonchi GASTROINTESTINAL: Abdomen soft, non-tender, nondistended. +PEG tube in place MUSCULOSKELETAL: No cyanosis, improved pitting edema. GUl; garcia in place with yellow urine Neuro: obtunded unresponsive no eye contact, not follws commands non vernbal Assessment and Plan - Plan Sacral decub with possible underlying infection, osteomyelitis. growing PSAE S zosyn PNA, HCAP - growing PSAE , MDRO GNR UTI ? ESBL given h/o ESBL. 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 Encephalopathy: strokes in hospital, optic neuritis on presentation. Fungemia, C. tropicalis Hypothermia change zosyn to avycaz fu sputum clx , will need extended sensitivities including avycaz, zerbaxa repeat blood clx paola RN
[2018-02-27] MEDS: Insulin NovoLIN Regular Correctional Sugar Inj SQ SCH ×4 (00:13→18:04)
[2018-02-27] MEDS: Ceftazidime/Avibactam Inj 1.25 GM in Sodium Chlor 0.9% Inj 50 ML IV.SIG SCH ×3 (03:20→22:16)
[2018-02-27] MEDS: Sodium Chloride 0.45 % Inj 1,000 ML IV.CONT SCH ×3 (03:21→18:00)
[2018-02-27 05:08] LABS: Hematocrit 25.5 % (39.0-51.0); Hemoglobin 8.3 gm/dL (13.0-17.0); Mean Corpuscular HGB Conc 32.7 % (32.0-36.0); Mean Corpuscular Volume 82.5 fL (80.0-100.0); Mean Platelet Volume 9.1 fL (7.0-11.0); Platelet Count 242 th/mm3 (150-450); Red Blood Count 3.09 mil/mm3 (4.50-5.90); White Blood Count 7.5 th/mm3 (4.0-11.0)
[2018-02-27 05:15] LABS: INR 1.9 Ratio; Prothrombin Time 19.4 sec (9.8-11.6)
[2018-02-27 05:32] LABS: Calcium 7.4 mg/dL (8.5-10.1); Carbon Dioxide 30.4 meq/L (21.0-32.0); Potassium 3.4 meq/L (3.5-5.1)
[2018-02-27 05:50] LABS: Total Protein 6.5 g/dL (6.4-8.2)
[2018-02-27] MEDS: Insulin Detemir Inj 1,000 UNIT/10 ML Vial SQ SCH ×2 (08:30→22:16)
[2018-02-27] MEDS: Polyethylene Glycol 3350 17 GM Packet PO SCH (08:30)
[2018-02-27] MEDS: Hydrocortisone Acetate 25 MG Supp RECTAL SCH ×2 (08:32→20:35)
[2018-02-27] MEDS: Famotidine 20 MG Tablet PO SCH ×2 (08:32→22:17)
[2018-02-27] MEDS: Collagenase Oint 30 GM Tube TOPICAL SCH (08:33)
[2018-02-27] MEDS: Hyoscyamine Liq Drops 0.125 MG/ML 15 ML Bottle SL PRN (09:35)
--- NOTE | 2018-02-27 10:56 | P.PNCC ---
Subjective Subjective Remarks/Hospital Course: This is a 77-year-old male who initially presented with vision changes and concern for optic neuritis versus temporal arteritis. His initial presentation was on 10/14. His hospital course has been complicated by an NSTEMI with troponins which peaked at 10, ESBL E. coli urinary tract infection, rectal bleeding suspected from bleeding hemorrhoids, acute anemia secondary to blood loss with hemoglobin started around 14 and is trended down to 9.7 this morning. On his initial MRA he was found to have significant atherosclerotic cerebrovascular disease in all vascular territories. Today, he had an acute mental status change and was obtunded. Rapid response and stroke alert was called. His initial NIH stroke scale was 22. Dr. goldstein had conversations with Dr. Ulloa and neurology as well as Dr. sierra with gastroenterology. GI feels comfortable with giving thrombolytics and neurology feels strongly that this patient would benefit from systemic IV TPA therapy. I evaluated the patient on arrival to the intensive care unit. The patient is arousable, but very somnolent. He is Hungarian speaking, and it is very difficult to ascertain whether or not he can follow commands. He does move all extremities spontaneously, although it appears that his left side is weaker than his right. He has noted facial droop. CT head is negative for acute hemorrhage. CTA head neck is significant for the same multivessel cerebrovascular disease that was present on admission. Given the high-risk nature of the stroke as well as his acute anemia this hospitalization, in preparation for giving emergent IV systemic TPA, I placed an arterial line as well as a large-bore peripheral IV so that we could draw serial labs, monitor his hemoglobin, and give blood products if necessary. I also had an additional discussion with the family where I reconfirmed that their goals were aggressive and they fully understood the significant risk of life-threatening hemorrhage associated with systemic TPA in a patient with new anemia and suspected GI bleeding. The family expressed understanding of his condition and understanding of the heightened risk of life-threatening bleeding, but still urged that we needed to get TPA. Immediately after giving IV TPA, patient had a tonic clonic seizure (witnessed on EEG) and became obtunded with acute hypoxic and hypercarbic respiratory failure and was emergently intubated (see separate procedure note for details). 11/10: remains intubated. encephalopathy persists. hgb stable s/p TPA. ~350cc bloody OG tube output, but this is slowing down. 11/11: more awake. on SBT. follows commands. 11/12: remains extubated. off vasopressors. no changes in mental status. 11/18/17 CCM Reconsult Note Patient was transferred to ICU today after a Halicat was called for AMS, hypoxia , high fever. Apparently patient was lethargic since a.m. in the last hour had been unresponsive and hence Halicat was called. Patient had a fever of 101.4 in a.m., T-max is 101.6. I immediately evaluated the patient in the ICU. Patient is completely unresponsive, oxygen saturation 87% on 4 L nasal cannula. Hypopneic. No response to deep pain. Patient was confirmed to be a full code and I proceeded with endotracheal intubation place him on mechanical ventilation as patient was not protecting airway. More history was obtained from discussion with ID Dr. Jalloh. She indicated patient had been increasingly lethargic with fever and also had urinary retention.She has discontinued Ertapenem, and started on meropenem, vancomycin and micafungin. Cultures have been sent and are pending now. Source of sepsis appears to be aspiration pneumonia versus UTI. Repeat UA and panculture pending at this time. Patient was borderline hypotensive prior to intubation and I have started on Levophed to avoid hypotension post intubation. Receiving 1 L normal saline bolus now, give additional fluid bolus if patient requires continued Levophed will place central line 11/19: remains intubated. holding aggrenox for possible thoracentesis today, but family hesitant to consent with concerns over bleeding risk. Cr remains elevated. discussion with Dr. Bernal, unlikely to benefit currently from draining effusion, so at his recommendation, will proceed with attempted weaning from mechanical ventilation and treat effusion conservatively. 11/20: Overnight /early this a.m. ,the patient was noted to have large amount of rectal bleeding. Aggrenox held since 11/18, 2/2 reintubation. Type and screen ordered. Serial H&H currently be performed. Hemodynamically stable. GI has been reconsulted. Protonix previously given PRN, will schedule BID. Patient was reintubated emergently 11/18, plan for continue CPAP trials. Tube feedings until evaluation by GI. ASA placed on hold , in the setting of GI bleeding. 11/21: EGD and colonoscopy performed yesterday. Patient was noted to be constipated ,disimpacted per GI. Patient noted to have hemorrhoids which was clipped. No further bleeding throughout the night. Chest x-ray showed improvement. CPAP trials initiated this a.m.. ASA 81 mg resumed. 11/22: Patient tolerated CPAP trials approximately 13 hours yesterday. Initiation of tube feeds per GI yesterday, no residuals. This am , family concerned patient not responsive. CT brain , ammonia level and EEG pending. Neurology has been reconsulted. Upon my entering the room, this afternoon, the patient was awake, tracking and squeezing my hand upon commands, with right hand. The patient received 1 u PRBC for Hgb 7.2. Post transfusion CBC pending. Plan for quantification of pleural fluid for possible thoracentesis in a.m.. 11/23: No acute events overnight. Patient remains off all sedation. Noted spontaneous eye opening, tracking following commands squeezing hands right greater than left. Neurology following plan for MRI this a.m., repeat EEG pending. Hemoglobin stable this a.m.. Chest x-ray slight improvement, plan for quantification via ultrasound of pleural effusions for possible thoracentesis today. 3 failed attempts at CPAP trials yesterday. 1548-MRI resulted findings consistent of small areas of acute cortical infarct, new since 11/09/2017. I contacted neurology, Dr. Geronimo informed of results. After Dr. Palma's review of imaging and records, it was determined most likely cardioembolic since is affecting both sides and failure with aspirin and Persantine. Ischemic stroke heparin protocol initiated. Careful review secondary to patient history of GI bleed 11/20, thought to be emanating from hemorrhoid ,however due to poor suboptimal prep, they unable to have optimal visualization per Dr. Jones. 11/24: Late entry note. Patient seen and evaluated 614. No acute events overnight. Patient continues on heparin infusion no active signs of bleeding. PTT within therapeutic range. The patient is less responsive this a.m., spontaneous eye opening, not following my commands. Not moving his extremities spontaneously for me as previously performed yesterday. tube feeds reinitiated. Chest x-ray showed further improvement in aeration of lungs the patient continues on FiO2 of 0.35. Plan for CPAP trials today. 11/25: No acute events overnight. Neurological status unchanged. Spontaneous eye opening patient continues not following any commands. Dr. Geronimo at bedside evaluating patient, no change. Patient tolerated CPAP trials approximately 12 hours yesterday. Tolerating tube feeds. Chest x-ray remains unchanged from yesterday. Hemoccult stool negative. Heparin infusion continued. family at bedside. 11/26: Late entry note. Patient seen at 1240pm. Last night the patient was noted to be continuously hyperglycemic. Levemir added to medication regimen 10 mg/day hemoglobin dropped 2 g/dL in 2 days hemoglobin now 7.7, patient to be transfused 1 unit packed red blood. No obvious signs of bleeding Hemoccult was negative. Patient continues on heparin infusion, patient may require tracheostomy and PEG in the near future . Plan to transition to p.o. anticoagulation post procedures. Neurologically the status is unchanged the patient is opens eyes spontaneously no movement of extremities upon my evaluation. Continued CPAP trials currently greater than 6 hours. 11/27: At 1000am, the patient was noted to have melena, approximated at 150 cc per RN evaluation. Heparin infusion discontinued/placed on hold at 10 AM. Stool for Hemoccult blood sent, GI was contacted and informed of the above events. Stat CT of the abdomen and pelvis with p.o. contrast ordered, results pending. Patient previously had been tolerating trickle feeds at 10 cc an hour with no residuals, after initiation of Reglan 5 mg every 8 hours yesterday. Neurologically the patient status is unchanged. Patient does have spontaneous eye opening but does not follow my commands and does not move extremities. Patient's daughter is at bedside, discussed the above events at which she was present for, she is requesting a repeat colonoscopy. I informed her that a CT of the abdomen and pelvis will be obtained, serial hemoglobin will be evaluated and if needed transfusion will be provided and gastroenterology has been contacted and will determine further management if an invasive procedure is required. Hemoglobin continues to be monitored serially, results pending for 10 AM. The patient received 1 unit packed red blood cells, and current hemoglobin trended overnight 8.9 to 8.2 this a.m., posttransfusion. 11/28: hgb continues to decline despite being off heparin. no additional GI interventions are available at this time. clearly the patient has failed anticoagulation with 2 life-threatening bleeding episodes. Although it is clear he may have additional strokes off anticoagulation, we have clear evidence that we are hurting his overall clinical care with his anticoagulation. I explained this at length to the daughter and medical decision maker. however, she insists that she would rather see him of bleeding rather than have any more strokes , and insists that "we can always keep giving him blood". I explained that blood is not without risk, and there is significant risk to anticoagulation, but she is insistent that he be given anticoagulation to prevent further strokes and she has weighed the risks and benefits after having full informed consent, insists upon us restarting the heparin drip. At her insistence, I have restarted it. In addition, I have counseled her that I do not think he will survive this hospitalization, and he will require tracheostomy for further aggressive care. She states that we are not at "day 14" on the vent, and it is not time for a tracheostomy yet. This is a second intubation and we are certainly at risk for complications from endotracheal intubation, and tracheostomy would be the most appropriate next step for this patient, but the family is refusing until WednesdayDecember 01. 11/29 Patient remains intubated, on no sedation. Afebrile. 11/30 No events overnight. Patient tolerated CPAP for most of day yesterday. Remains on Heparin drip. 12/01 Patient remains intubated tolerated CPAP for several hrs yesterday. s/p CT guided right thoracentesis with removal 500ml pleural fluid. On Heparin drip 12/02 No events overnight. Heparin drip stopped this morning for trach and PEG placement today. Afebrile. 12/03 Patient s/p trach and PEG tube placement yesterday. Had bleeding from around trach and PEG tube insertion sites Heparin drip held last night. s/p transfusion 1u PRBC yesterday Hgb 8.0 this morning. Afebrile. On no sedation. 12/04: Continues to have bruising from PEG tube insertion site. Trach site appears to have stopped. Hemoglobin 7 the same receiving 1 unit FFP and 1 PRBCs. Tube feeds of been resumed. On no sedation. 12/05: Afebrile. No further bleeding noted from the tracheostomy site. Overnight reported by the RN that the PEG tube site continues to bleed Surgicel was placed around the opening, small amount of bleeding still noted. Patient hemoglobin remained 7 patient to be transfused 1 unit PRBC's fibrinogen level pending INR within normal limits. 12/06 Patient s/p transfusion 2u PRBC yesterday Hgb 9.5 this morning from 7.2 last night. No bleeding from trach site however patient still having rectal bleeding. 12/07 No events overnight. On ventilator via trach Hgb 9.8 this morning for colonoscopy today. 12/08: seen and examined around 06:30am. no significant change in mental status. hgb 8.9 this AM. remains on heparin drip at [facility]. 12/09: no improvements or changes. very deconditioned. garcia has remained in without clear indication. had 1 episode of urinary retention, but this is a clear source of infection and an additional serious infection would certainly be life-threatening. 12/10 Patient is now on TP's with 28% FIO2, Afebrile. On Heparin drip. 12/11: remains on t-piece x > 48h. no change in neuro exam. remains on heparin drip with stable hgb 7.8. 12/12: asked to see patient again today by the hospitalist service for change in condition. I have evaluated the patient and he does not clinically appear any different than yesterday. HR actually lower than yesterday. bladder scan suggestive of 600cc retention. patient has had urinary retention before, although has also had multiple hospital acquired urinary tract infections. risk/ benefit at this time would be in favor of serial q6h straight catheterizations. remains hemodynamically stable. some emesis today and evidence of ileus. 12/31 Reconsult for resp distress Patient is 77 yo with chronic resp failure, trach/PEG tube placement, [place] [facility] [place] trach changes to #6 and patient was placed on mechanical ventilation. CXR showed increasing consolidation patient was given Lasix prior [place] [facility] 01/01 Patient is on ventilator via trach. Afebrile. 01/02 No events overnight. On no drips, Afebrile, CPAP 15/5 with 35% FIO2 overnight. 01/03 Remained on TP breathing comfortably. CXR shows bilateral effusions. Will get CT chest. Give single dose of lasix. ID consulted and following, no fever in 24 hours 01/04: Remains unresponsive, fever trending down. Sputum culture now growing Klebsiella and ESBL E. coli. Urine culture and wound culture also growing ESBL E. coli. Chest tube placed on the right side yesterday with 1.35 L output since placement. Urine output excellent with single dose of Lasix 2.5 L in 24 hours. No fever in 24 hours. Repeat 40 mg IV Lasix 1 [facility] RECONSULT NOTE 02/08/18: Mr. Glynn is a 77-year-old man who is known to our service. In short, he was initially admitted with possible optic neuritis versus temporal arteritis in September. Care complicated by an STEMI, multiple infections with healthcare associated pneumonia UTIs. During hospitalization he also received TPA for Stroke, MRI of the brain performed on 12/24/2017, showed infarction involving the left corpus callosum and splenium of the corpus callosum. The patient had undergone tracheostomy placement. And since last month had been on hospitalist service and off ventilator. He is currently receiving Levaquin for stenotrophomonas infection, Diflucan for candidemia. Apparently patient was noted to aspirate earlier this a.m. At 7250 AM patient was found unresponsive pulseless rhythm asystole and CPR was started. Total 3 amp of epinephrine given. Patient had a cuff less trach with evidence of aspiration, large amount of tube feeds aspirated from tracheostomy tube. This was exchanged for a 8.0 Shiley tracheostomy cuffed. With improved bag and mask ventilation and after 3 epinephrine, 1 amp of calcium, 1 amp of bicarb, patient regained ROSC SUBJ 02/09/18: Remains very critical not on any sedation he is unresponsive eyes are spontaneously open but no tracking. Very slight withdrawal to pain on the upper extremities. CT of the head unremarkable. Currently borderline hypotensive off pressors. Received 2 units of PRBC for hemoglobin 6.6 yesterday. Prognosis remained poor. Neurology consulted per family request 02/10/18: Remains critical with no improvement in neuro status or clinical status. Eyes are spontaneously open but no response to threat no tracking. Neurology consulted MRI and EEG pending at this time. Currently remains on Levophed at 1 mcg/min. Chest x-ray with bilateral infiltrates sputum culture growing GNR. Na 155. Free water flushes and half-normal saline rate increased. 02/11: Remains unresponsive off all sedation. Osmolality slowly returning to baseline. Antibiotics appropriate for organism. Tube feeds tolerated at 50 mL' s per hour. Unable to wean from mechanical ventilation. 02/12: Osmolality slowly returning to baseline. Tube feeds now tolerated at 60 mL's per hour. Unable to wean from mechanical ventilation due to fatigue. 02/13: Placed on spontaneous breathing trial this morning but required 18 of pressure support to maintain an adequate minute volume. Will work from this point and attempt to wean pressure support over the next many days. Will place back on mechanical rate nightly. Anticoagulation is been particularly cumbersome and made more difficult by Diflucan. Will restart Coumadin again this morning as INR is declined to 2.2 02/14: Remains very weak. Essentially unresponsive. Tolerates brief periods of spontaneous breathing trial blood pressure support must be markedly elevated to the 1820 range. State of hydration gradually improving as osmolality declines and serum creatinine improves. Will continue hypotonic solutions IV. 02/15: Remains unresponsive. Continues to fail spontaneous breathing trials due to lack of respiratory effort. Suffers from tachypnea with an efficient small tidal volumes regardless of the amount of pressure support. 02/16: Onset of copious watery diarrhea is contaminating buttock wounds. We will insert a dignity shield system for fecal management. Remains unresponsive to noxious stimulation. He does have a weak cough reflex. 02/17: Patient is weaker on attempts at spontaneous breathing trials today. Patient remains unresponsive. Only reaction is a weak cough to suctioning. 02/18: Patient continues to do poorly on attempts at spontaneous breathing trials. Urine output is improved with diuresis, will follow renal function closely. 02/19: Albumin 1.1, further evidence that the patient is deteriorating. Responds to diuretics but prerenal azotemia quickly develops. 02/20: Ongoing attempts to remove excess soft tissue and pleural water consistently resolved and renal impairment. Unfortunately this is largely caused by his poor nutritional status. Despite sufficient nutritional support he continues to deteriorate clinically. 02/21: no improvements in function. still grossly anasarca. Cr worsening again. hypernatremia persists. 02/22: no changes. intermittently tachycardic. still gently diuresing. outlook poor. Subjective: 02/23: no improvements. anemic this AM requiring transfusion of prbc. Family refuses to allow the holding of anticoagulation given multiple recent CVA, so anticoagulation will continue despite anemia. remains hypernatremic despite therapy. 02/24: no changes or improvements. HR came down with transfusion of prbc yesterday. 02/25: hgb stable. Cr worsens slightly. metabolic derangements have improved somewhat and sodium improving. no improvement in neurologic status. poor prognosis. 02/26, 02/27: Remains on mech ventilation via trach. No improvement in neuro status. Objective Vital Signs / I&O: Vital Signs 02/26/18 11:56 02/26/18 12:00 02/26/18 14:00 Temperature 96.1 F L Pulse Rate 90 89 Respiratory Rate 17 21 Blood Pressure 113/64 Pulse Oximetry 98 98 02/26/18 16:00 02/26/18 16:42 02/26/18 17:35 Temperature 96.1 F L Pulse Rate 90 89 Respiratory Rate 21 20 Blood Pressure 113/64 Pulse Oximetry 98 97 02/26/18 19:54 02/26/18 20:00 02/26/18 22:00 Temperature 97.4 F L Pulse Rate 84 85 Respiratory Rate 21 21 Blood Pressure 120/66 Pulse Oximetry 99 99 02/26/18 23:51 02/27/18 00:00 02/27/18 02:00 Temperature 97.7 F Pulse Rate 88 86 Respiratory Rate 22 15 Blood Pressure 125/68 Pulse Oximetry 98 97 02/27/18 03:32 02/27/18 04:00 02/27/18 06:00 Temperature 97.6 F Pulse Rate 82 88 Respiratory Rate 21 18 Blood Pressure 108/55 L Pulse Oximetry 97 96 02/27/18 09:54 Temperature Pulse Rate 112 H Respiratory Rate 21 Blood Pressure Pulse Oximetry Intake & Output 02/26/18 02/27/18 02/27/18 18:59 06:59 18:59 Intake Total 1570 / 1570 2400 / 2400 Output Total 2200 / 2200 2150 / 2150 Balance -630 / -630 250 / 250 Weight 90.6 kg Intake: IV 1100 / 1100 1200 / 1200 1/2 Normal Saline Inj 1,000 ML 1000 / 1000 1000 / 1000 @ 75 mls/hr IV.CONT .[id number] [facility] Rx#:[id number] Avycaz Inj 1.25 GM In NS Inj 50 100 / 100 ML @ 25 mls/hr IV.SIG Q8H [facility] Rx#:[id number] Zosyn 4.5 GM Premix 4.5 gm In 100 / 100 100 ml @ 200 mls/hr IV.SIG Q6H [facility] Rx#:[id number] Tube Feeding 420 / 420 600 / 600 Tube Irrigant 50 / 50 600 / 600 Output: Stool 200 / 200 400 / 400 Urine Amount (Catheter) 1999 1750 / 1750 Indwelling Urethral Catheter 1999 175 / 175 Other: Date of Last Bowel Movement 02/26/18 02/27/18 Result Diagrams: 02/27/18 03:53 02/27/18 03:53 Objective Remarks: GENERAL: Patient is 77 yo encephalopathic, unresponsive on the vent. Eyes are closed. SKIN: Warm and dry. Stage IV sacral decubitus, surrounding buttocks excoriation. HEAD: Normocephalic. Tongue moist. EYES: No scleral icterus. No injection. PRABHA. NECK: Cuffed tracheostomy tube in place. Moderate secretions persist. CARDIOVASCULAR: normal rate, regular rhythm. No JVD. RESPIRATORY: Breath sounds equal bilaterally. Persistent scattered rhonchi GASTROINTESTINAL: Abdomen soft. PEG tube site clean and dry MUSCULOSKELETAL: No cyanosis. Generalized edema. NEURO: Eyes are closed. Unresponsive to stimulation in all 4 limbs. Weak cough reflex. Assessment and Plan - Assessment and Plan Plan: Assessment: Asystole/Cardiac arrest Worsening encephalopathy most likely anoxia contributing Aspiration pneumonia Acute on chronic hypoxemic and hypercapnic resp failure Combined shock, septic and cardiogenic Healthcare associated pneumonia, stenotrophomonas Candidemia UTI with ESBL E. coli Hypernatremia- persistent despite therapy CVA Anemia requiring transfusion Sacral decubitus ulcer s/p NSTEMI Optic neuritis Status post tracheostomy and PEG tube placement Acute protein calorie malnutrition- severe Plan: Impression: Neuro -Acute worsening of encephalopathy secondary to systolic cardiac arrest, anoxia -CT head 02/08/[address] Pereira reconsulted per family request -History of L ENID infarct. Status post systemic TPA on November 09 -Neuropsychology has followed. Continue Ritalin -Optic neuritis. Status post treatment with IV hydrocortisone -Remains unresponsive. CV: -Asystole/cardiac arrest seems secondary to hypoxia and hypercapnia from severe aspiration -s/p IV fluid normal saline 2 L bolus, 2U PRBC -half-normal saline back off to 75 ml per hour due to hypernatremia, free water flushes at 300 mL every 4 -Continue Coumadin -Echo 10/19: LV systolic function is moderately reduced, EF 40-45%. Cardiology has followed Dr. Hernández -Cardura 2mg daily and Coreg 3.125mg BID on hold due to hypotension. On Lipitor 80mg qhs Pulm: -Cardiac arrest seems to be secondary to respiratory arrest. Evidence of aspiration at the time of arrest -Cuff less tracheostomy tube removed and new Shiley 8 cuffed tracheostomy placed 02/08/18 -PRVC/AC ventilation. DuoNeb every 6 hours scheduled and as needed -Failed CPAP due to apnea -ICU vent bundle. Pulm toilet, trach care. -pseudomonas in sputum culture, On Levaquin for stenotrophomonas, Diflucan for candidemia, meropenem for previous ESBL E Coli HCAP -Antibiotic and antifungal coverage remains appropriate. GI -Currently tube feeds at goal. continue as tolerated. -On Pepcid 10mg BID -Free water flushes 300 mils every 4 hours -Having BMs -Tube feeds at 60 mL's per hour 02/12. -Tube feeds tolerated with acceptable gastric residual -recheck cbc, bmp q48h : -Monitor renal function, electrolytes replacement per protocol ID -Patient was receiving Levaquin for stenotrophomonas, Diflucan for candidemia -Added meropenem 02/08/18 for previous ESBL E. coli HCAP -Previous UTI with ESBL E. coli, Previous healthcare associated pneumonia with Klebsiella and ESBL E. coli -F/U blood and sputum culture and urine culture. pseudomonas in sputum 02/08 -ID Dr. Jalloh following Skin -Sacral wound-Seen by Plastic surgery; debridement declined per patient's family -Wound care is following- apply dressings per wound management recommendations Heme: -Status post 2 units PRBC on 02/08/2018 now s/p additional 2 units prbc on 02/23 for recurrent anemia. -Previous GI bleed; Status post EGD colonoscopy. GI has signed off, patient with healed rectal ulcers and hemorrhoids. -INR therapeutic Endo -On SSI. Levemir for glycemic control GI prophylaxis- on Pepcid DVT prophylaxis- On Coumadin and adjusted per pharmacy consultation. Overall impression: Patient remains critically ill after aspiration with hypoxemic and hypercarbic respiratory failure leading to asystolic cardiac arrest. Ten minutes of CPR with return of spontaneous circulation after aggressive resuscitation following CPR, patient remains hypoxemic and encephalopathy. Remains unresponsive, weak respiratory effort is ineffective during spontaneous trials, unable to begin weaning from ventilator. Prognosis remains poor. Family unrealistic with goals of care and press on for aggressive measures. no meaningful improvements in months.
--- NOTE | 2018-02-27 12:44 | XR ---
EXAM DATE: 02/27/2018 12:37 PM EDT AGE/SEX: 77 years / Male INDICATIONS: Shortness of breath. CLINICAL DATA: This is the patient's subsequent encounter. Patient reports that signs and symptoms h ave been present for 3 days and indicates a pain score of Nonresponsive. MEDICAL/SURGICAL HISTORY: Non-responsive. Non-responsive. COMPARISON: [facility] [place], CHEST 1V SINGLE AP, 02/24/2018. . FINDINGS: There are bilateral pleural effusions right greater than left. Patchy bilateral airspace disease is n oted. Tracheostomy tube is present. Patient is rotated to the left. CONCLUSION: Bilateral parenchymal consolidation and pleural effusions. Electronically signed by: Favio Brown MD 02/27/2018 12:42 PM EDT
--- NOTE | 2018-02-27 15:17 | P.PN ---
Subjective Interval history: unresponsive on vent support Physical Exam Vital signs: Vital Signs 02/26/18 16:00 02/26/18 16:42 02/26/18 17:35 Temperature 96.1 F L Pulse Rate 90 89 Respiratory Rate 21 20 Blood Pressure 113/64 Pulse Oximetry 98 97 02/26/18 19:54 02/26/18 20:00 02/26/18 22:00 Temperature 97.4 F L Pulse Rate 84 85 Respiratory Rate 21 21 Blood Pressure 120/66 Pulse Oximetry 99 99 02/26/18 23:51 02/27/18 00:00 02/27/18 02:00 Temperature 97.7 F Pulse Rate 88 86 Respiratory Rate 22 15 Blood Pressure 125/68 Pulse Oximetry 98 97 02/27/18 03:32 02/27/18 04:00 02/27/18 06:00 Temperature 97.6 F Pulse Rate 82 88 Respiratory Rate 21 18 Blood Pressure 108/55 L Pulse Oximetry 97 96 02/27/18 09:54 02/27/18 12:53 Temperature Pulse Rate 112 H Respiratory Rate 21 27 H Blood Pressure Pulse Oximetry 98 Intake & Output 02/26/18 02/27/18 02/27/18 18:59 06:59 18:59 Intake Total 1570 / 1570 2400 / 2400 Output Total 2200 / 2200 2150 / 2150 Balance -630 / -630 250 / 250 Weight 90.6 kg Intake: IV 1100 / 1100 1200 / 1200 1/2 Normal Saline Inj 1,000 ML 1000 / 1000 1000 / 1000 @ 75 mls/hr IV.CONT .[id number] EDE Rx#:[id number] Avycaz Inj 1.25 GM In NS Inj 50 100 / 100 ML @ 25 mls/hr IV.SIG Q8H EDE Rx#:[id number] Zosyn 4.5 GM Premix 4.5 gm In 100 / 100 100 ml @ 200 mls/hr IV.SIG Q6H EDE Rx#:[id number] Tube Feeding 420 / 420 600 / 600 Tube Irrigant 50 / 50 600 / 600 Output: Stool 200 / 200 400 / 400 Urine Amount (Catheter) 1999 1750 / 1750 Indwelling Urethral Catheter 1999 1750 / 1750 Other: Date of Last Bowel Movement 02/26/18 02/27/18 Narrative: GENERAL:on vent support male patient, UNRESPONSIVE. . SKIN: Warm and dry. +sacral decub per wound care notes. HEAD: Atraumatic. Normocephalic. EYES: Pupils equal and round. No scleral icterus. No injection or drainage. ENT: No nasal bleeding or discharge. Mucous membranes pink and moist. NECK: Trachea midline. Trach in place. CARDIOVASCULAR: Regular rate and rhythm. RESPIRATORY: No accessory muscle use. Clear to auscultation. Breath sounds equal bilaterally. GASTROINTESTINAL: Abdomen soft, non-tender, nondistended. PEG in place. GENITOURINARY: [place] in place - placed 01/21 MUSCULOSKELETAL: Extremities without clubbing, cyanosis, or edema. NEUROLOGICAL: Awake. Unable to follow commands. Nonverbal. PSYCHIATRIC: Calm. - Urinary Catheter Management Straight Cath placed during this visit: yes Urethral indwelling: Yes Reason for continuing: Acute urinary retention Insertion date: 01/21/18 Insertion time: 08:00 Indwelling Urethral Catheter Cath placed during this visit: yes, but has since been removed by the nurse Urethral indwelling: Yes Reason for continuing: Acute urinary retention Insertion date: 01/21/18 Insertion time: 16:18 Removal date: 01/20/18 Removal time: 15:15 Results - Labs CBC & Chem 7: 02/27/18 03:53 02/27/18 03:53 Laboratory Results - last 24 hr 02/26/18 02/26/18 02/26/18 17:14 20:13 23:50 WBC RBC Hgb Hct MCV MCH MCHC RDW Plt Count MPV PT INR Sodium Potassium Chloride Carbon Dioxide Anion Gap BUN Creatinine Estimated GFR POC Glucose 202 H 219 H 210 H Random Glucose Calcium Prot Corrected Calcium Total Protein 02/27/18 02/27/18 02/27/18 03:53 03:53 03:53 WBC 7.5 RBC 3.09 L Hgb 8.3 L Hct 25.5 L MCV 82.5 MCH 27.0 MCHC 32.7 RDW 20.0 H Plt Count 242 MPV 9.1 PT 19.4 H INR 1.9 Sodium 139 Potassium 3.4 L Chloride 101 Carbon Dioxide 30.4 Anion Gap 8 BUN 77 H Creatinine 1.49 H Estimated GFR 46 L POC Glucose Random Glucose 158 H Calcium 7.4 L* Prot Corrected Calcium 7.7 L Total Protein 6.5 02/27/18 02/27/18 05:05 12:54 WBC RBC Hgb Hct MCV MCH MCHC RDW Plt Count MPV PT INR Sodium Potassium Chloride Carbon Dioxide Anion Gap BUN Creatinine Estimated GFR POC Glucose 192 H 184 H Random Glucose Calcium Prot Corrected Calcium Total Protein Microbiology 02/26/18 19:29 Blood - Peripheral Aerobic Blood Culture - Preliminary No growth in 1 day 02/26/18 19:29 Blood - Peripheral Anaerobic Blood Culture - Preliminary No growth in 1 day 02/26/18 19:20 Blood - Peripheral Aerobic Blood Culture - Preliminary No growth in 1 day 02/26/18 19:20 Blood - Peripheral Anaerobic Blood Culture - Preliminary No growth in 1 day 02/23/18 14:00 Sputum - Endotracheal Gram Stain - Final 02/23/18 14:00 Sputum - Endotracheal Sputum Culture - Final Pseudomonas aeruginosa Multidrug Resistant - Imaging Impressions Chest X-Ray 02/27/18 00:00 CONCLUSION: Bilateral parenchymal consolidation and pleural effusions. Assessment and Plan - Plan RESPIRATORY FAILURE S/P cva S/P SD S/P trach plan VENT SUPPORT PULM TOILET ANTIBX PER ID OUTLOOK POOR
[2018-02-28] MEDS: Insulin NovoLIN Regular Correctional Sugar Inj SQ SCH ×4 (00:43→17:53)
--- NOTE | 2018-02-28 08:26 | P.PNCC ---
Subjective Subjective Remarks/Hospital Course: This is a 77-year-old male who initially presented with vision changes and concern for optic neuritis versus temporal arteritis. His initial presentation was on 10/14. His hospital course has been complicated by an NSTEMI with troponins which peaked at 10, ESBL E. coli urinary tract infection, rectal bleeding suspected from bleeding hemorrhoids, acute anemia secondary to blood loss with hemoglobin started around 14 and is trended down to 9.7 this morning. On his initial MRA he was found to have significant atherosclerotic cerebrovascular disease in all vascular territories. Today, he had an acute mental status change and was obtunded. Rapid response and stroke alert was called. His initial NIH stroke scale was 22. Dr. goldstein had conversations with Dr. Ulloa and neurology as well as Dr. sierra with gastroenterology. GI feels comfortable with giving thrombolytics and neurology feels strongly that this patient would benefit from systemic IV TPA therapy. I evaluated the patient on arrival to the intensive care unit. The patient is arousable, but very somnolent. He is Frisian speaking, and it is very difficult to ascertain whether or not he can follow commands. He does move all extremities spontaneously, although it appears that his left side is weaker than his right. He has noted facial droop. CT head is negative for acute hemorrhage. CTA head neck is significant for the same multivessel cerebrovascular disease that was present on admission. Given the high-risk nature of the stroke as well as his acute anemia this hospitalization, in preparation for giving emergent IV systemic TPA, I placed an arterial line as well as a large-bore peripheral IV so that we could draw serial labs, monitor his hemoglobin, and give blood products if necessary. I also had an additional discussion with the family where I reconfirmed that their goals were aggressive and they fully understood the significant risk of life-threatening hemorrhage associated with systemic TPA in a patient with new anemia and suspected GI bleeding. The family expressed understanding of his condition and understanding of the heightened risk of life-threatening bleeding, but still urged that we needed to get TPA. Immediately after giving IV TPA, patient had a tonic clonic seizure (witnessed on EEG) and became obtunded with acute hypoxic and hypercarbic respiratory failure and was emergently intubated (see separate procedure note for details). 11/10: remains intubated. encephalopathy persists. hgb stable s/p TPA. ~350cc bloody OG tube output, but this is slowing down. 11/11: more awake. on SBT. follows commands. 11/12: remains extubated. off vasopressors. no changes in mental status. 11/18/17 CCM Reconsult Note Patient was transferred to ICU today after a Halicat was called for AMS, hypoxia , high fever. Apparently patient was lethargic since a.m. in the last hour had been unresponsive and hence Halicat was called. Patient had a fever of 101.4 in a.m., T-max is 101.6. I immediately evaluated the patient in the ICU. Patient is completely unresponsive, oxygen saturation 87% on 4 L nasal cannula. Hypopneic. No response to deep pain. Patient was confirmed to be a full code and I proceeded with endotracheal intubation place him on mechanical ventilation as patient was not protecting airway. More history was obtained from discussion with ID Dr. Jalloh. She indicated patient had been increasingly lethargic with fever and also had urinary retention.She has discontinued Ertapenem, and started on meropenem, vancomycin and micafungin. Cultures have been sent and are pending now. Source of sepsis appears to be aspiration pneumonia versus UTI. Repeat UA and panculture pending at this time. Patient was borderline hypotensive prior to intubation and I have started on Levophed to avoid hypotension post intubation. Receiving 1 L normal saline bolus now, give additional fluid bolus if patient requires continued Levophed will place central line 11/19: remains intubated. holding aggrenox for possible thoracentesis today, but family hesitant to consent with concerns over bleeding risk. Cr remains elevated. discussion with Dr. Bernal, unlikely to benefit currently from draining effusion, so at his recommendation, will proceed with attempted weaning from mechanical ventilation and treat effusion conservatively. 11/20: Overnight /early this a.m. ,the patient was noted to have large amount of rectal bleeding. Aggrenox held since 11/18, 2/2 reintubation. Type and screen ordered. Serial H&H currently be performed. Hemodynamically stable. GI has been reconsulted. Protonix previously given PRN, will schedule BID. Patient was reintubated emergently 11/18, plan for continue CPAP trials. Tube feedings until evaluation by GI. ASA placed on hold , in the setting of GI bleeding. 11/21: EGD and colonoscopy performed yesterday. Patient was noted to be constipated ,disimpacted per GI. Patient noted to have hemorrhoids which was clipped. No further bleeding throughout the night. Chest x-ray showed improvement. CPAP trials initiated this a.m.. ASA 81 mg resumed. 11/22: Patient tolerated CPAP trials approximately 13 hours yesterday. Initiation of tube feeds per GI yesterday, no residuals. This am , family concerned patient not responsive. CT brain , ammonia level and EEG pending. Neurology has been reconsulted. Upon my entering the room, this afternoon, the patient was awake, tracking and squeezing my hand upon commands, with right hand. The patient received 1 u PRBC for Hgb 7.2. Post transfusion CBC pending. Plan for quantification of pleural fluid for possible thoracentesis in a.m.. 11/23: No acute events overnight. Patient remains off all sedation. Noted spontaneous eye opening, tracking following commands squeezing hands right greater than left. Neurology following plan for MRI this a.m., repeat EEG pending. Hemoglobin stable this a.m.. Chest x-ray slight improvement, plan for quantification via ultrasound of pleural effusions for possible thoracentesis today. 3 failed attempts at CPAP trials yesterday. 1548-MRI resulted findings consistent of small areas of acute cortical infarct, new since 11/09/2017. I contacted neurology, Dr. Geronimo informed of results. After Dr. Palma's review of imaging and records, it was determined most likely cardioembolic since is affecting both sides and failure with aspirin and Persantine. Ischemic stroke heparin protocol initiated. Careful review secondary to patient history of GI bleed 11/20, thought to be emanating from hemorrhoid ,however due to poor suboptimal prep, they unable to have optimal visualization per Dr. Jones. 11/24: Late entry note. Patient seen and evaluated 614. No acute events overnight. Patient continues on heparin infusion no active signs of bleeding. PTT within therapeutic range. The patient is less responsive this a.m., spontaneous eye opening, not following my commands. Not moving his extremities spontaneously for me as previously performed yesterday. tube feeds reinitiated. Chest x-ray showed further improvement in aeration of lungs the patient continues on FiO2 of 0.35. Plan for CPAP trials today. 11/25: No acute events overnight. Neurological status unchanged. Spontaneous eye opening patient continues not following any commands. Dr. Geronimo at bedside evaluating patient, no change. Patient tolerated CPAP trials approximately 12 hours yesterday. Tolerating tube feeds. Chest x-ray remains unchanged from yesterday. Hemoccult stool negative. Heparin infusion continued. family at bedside. 11/26: Late entry note. Patient seen at 1240pm. Last night the patient was noted to be continuously hyperglycemic. Levemir added to medication regimen 10 mg/day hemoglobin dropped 2 g/dL in 2 days hemoglobin now 7.7, patient to be transfused 1 unit packed red blood. No obvious signs of bleeding Hemoccult was negative. Patient continues on heparin infusion, patient may require tracheostomy and PEG in the near future . Plan to transition to p.o. anticoagulation post procedures. Neurologically the status is unchanged the patient is opens eyes spontaneously no movement of extremities upon my evaluation. Continued CPAP trials currently greater than 6 hours. 11/27: At 1000am, the patient was noted to have melena, approximated at 150 cc per RN evaluation. Heparin infusion discontinued/placed on hold at 10 AM. Stool for Hemoccult blood sent, GI was contacted and informed of the above events. Stat CT of the abdomen and pelvis with p.o. contrast ordered, results pending. Patient previously had been tolerating trickle feeds at 10 cc an hour with no residuals, after initiation of Reglan 5 mg every 8 hours yesterday. Neurologically the patient status is unchanged. Patient does have spontaneous eye opening but does not follow my commands and does not move extremities. Patient's daughter is at bedside, discussed the above events at which she was present for, she is requesting a repeat colonoscopy. I informed her that a CT of the abdomen and pelvis will be obtained, serial hemoglobin will be evaluated and if needed transfusion will be provided and gastroenterology has been contacted and will determine further management if an invasive procedure is required. Hemoglobin continues to be monitored serially, results pending for 10 AM. The patient received 1 unit packed red blood cells, and current hemoglobin trended overnight 8.9 to 8.2 this a.m., posttransfusion. 11/28: hgb continues to decline despite being off heparin. no additional GI interventions are available at this time. clearly the patient has failed anticoagulation with 2 life-threatening bleeding episodes. Although it is clear he may have additional strokes off anticoagulation, we have clear evidence that we are hurting his overall clinical care with his anticoagulation. I explained this at length to the daughter and medical decision maker. however, she insists that she would rather see him of bleeding rather than have any more strokes , and insists that "we can always keep giving him blood". I explained that blood is not without risk, and there is significant risk to anticoagulation, but she is insistent that he be given anticoagulation to prevent further strokes and she has weighed the risks and benefits after having full informed consent, insists upon us restarting the heparin drip. At her insistence, I have restarted it. In addition, I have counseled her that I do not think he will survive this hospitalization, and he will require tracheostomy for further aggressive care. She states that we are not at "day 14" on the vent, and it is not time for a tracheostomy yet. This is a second intubation and we are certainly at risk for complications from endotracheal intubation, and tracheostomy would be the most appropriate next step for this patient, but the family is refusing until WednesdayDecember 01. 11/29 Patient remains intubated, on no sedation. Afebrile. 11/30 No events overnight. Patient tolerated CPAP for most of day yesterday. Remains on Heparin drip. 12/01 Patient remains intubated tolerated CPAP for several hrs yesterday. s/p CT guided right thoracentesis with removal 500ml pleural fluid. On Heparin drip 12/02 No events overnight. Heparin drip stopped this morning for trach and PEG placement today. Afebrile. 12/03 Patient s/p trach and PEG tube placement yesterday. Had bleeding from around trach and PEG tube insertion sites Heparin drip held last night. s/p transfusion 1u PRBC yesterday Hgb 8.0 this morning. Afebrile. On no sedation. 12/04: Continues to have bruising from PEG tube insertion site. Trach site appears to have stopped. Hemoglobin 7 the same receiving 1 unit FFP and 1 PRBCs. Tube feeds of been resumed. On no sedation. 12/05: Afebrile. No further bleeding noted from the tracheostomy site. Overnight reported by the RN that the PEG tube site continues to bleed Surgicel was placed around the opening, small amount of bleeding still noted. Patient hemoglobin remained 7 patient to be transfused 1 unit PRBC's fibrinogen level pending INR within normal limits. 12/06 Patient s/p transfusion 2u PRBC yesterday Hgb 9.5 this morning from 7.2 last night. No bleeding from trach site however patient still having rectal bleeding. 12/07 No events overnight. On ventilator via trach Hgb 9.8 this morning for colonoscopy today. 12/08: seen and examined around 06:30am. no significant change in mental status. hgb 8.9 this AM. remains on heparin drip at [facility]. 12/09: no improvements or changes. very deconditioned. garcia has remained in without clear indication. had 1 episode of urinary retention, but this is a clear source of infection and an additional serious infection would certainly be life-threatening. 12/10 Patient is now on TP's with 28% FIO2, Afebrile. On Heparin drip. 12/11: remains on t-piece x > 48h. no change in neuro exam. remains on heparin drip with stable hgb 7.8. 12/12: asked to see patient again today by the hospitalist service for change in condition. I have evaluated the patient and he does not clinically appear any different than yesterday. HR actually lower than yesterday. bladder scan suggestive of 600cc retention. patient has had urinary retention before, although has also had multiple hospital acquired urinary tract infections. risk/ benefit at this time would be in favor of serial q6h straight catheterizations. remains hemodynamically stable. some emesis today and evidence of ileus. 12/31 Reconsult for resp distress Patient is 77 yo with chronic resp failure, trach/PEG tube placement, CVA transferred to [facility] for resp distress trach changes to #6 and patient was placed on mechanical ventilation. CXR showed increasing consolidation patient was given Lasix prior to arrival to [facility]. 01/01 Patient is on ventilator via trach. Afebrile. 01/02 No events overnight. On no drips, Afebrile, CPAP 15/5 with 35% FIO2 overnight. 01/03 Remained on TP breathing comfortably. CXR shows bilateral effusions. Will get CT chest. Give single dose of lasix. ID consulted and following, no fever in 24 hours 01/04: Remains unresponsive, fever trending down. Sputum culture now growing Klebsiella and ESBL E. coli. Urine culture and wound culture also growing ESBL E. coli. Chest tube placed on the right side yesterday with 1.35 L output since placement. Urine output excellent with single dose of Lasix 2.5 L in 24 hours. No fever in 24 hours. Repeat 40 mg IV Lasix [facility] RECONSULT NOTE 02/08/18: Mr. Glynn is a 77-year-old man who is known to our service. In short, he was initially admitted with possible optic neuritis versus temporal arteritis in September. Care complicated by an STEMI, multiple infections with healthcare associated pneumonia UTIs. During hospitalization he also received TPA for Stroke, MRI of the brain performed on 12/24/2017, showed infarction involving the left corpus callosum and splenium of the corpus callosum. The patient had undergone tracheostomy placement. And since last month had been on hospitalist service and off ventilator. He is currently receiving Levaquin for stenotrophomonas infection, Diflucan for candidemia. Apparently patient was noted to aspirate earlier this a.m. At 7250 AM patient was found unresponsive pulseless rhythm asystole and CPR was started. Total 3 amp of epinephrine given. Patient had a cuff less trach with evidence of aspiration, large amount of tube feeds aspirated from tracheostomy tube. This was exchanged for a 8.0 Shiley tracheostomy cuffed. With improved bag and mask ventilation and after 3 epinephrine, 1 amp of calcium, 1 amp of bicarb, patient regained ROSC SUBJ 02/09/18: Remains very critical not on any sedation he is unresponsive eyes are spontaneously open but no tracking. Very slight withdrawal to pain on the upper extremities. CT of the head unremarkable. Currently borderline hypotensive off pressors. Received 2 units of PRBC for hemoglobin 6.6 yesterday. Prognosis remained poor. Neurology consulted per family request 02/10/18: Remains critical with no improvement in neuro status or clinical status. Eyes are spontaneously open but no response to threat no tracking. Neurology consulted MRI and EEG pending at this time. Currently remains on Levophed at 1 mcg/min. Chest x-ray with bilateral infiltrates sputum culture growing GNR. Na 155. Free water flushes and half-normal saline rate increased. 02/11: Remains unresponsive off all sedation. Osmolality slowly returning to baseline. Antibiotics appropriate for organism. Tube feeds tolerated at 50 mL' s per hour. Unable to wean from mechanical ventilation. 02/12: Osmolality slowly returning to baseline. Tube feeds now tolerated at 60 mL's per hour. Unable to wean from mechanical ventilation due to fatigue. 02/13: Placed on spontaneous breathing trial this morning but required 18 of pressure support to maintain an adequate minute volume. Will work from this point and attempt to wean pressure support over the next many days. Will place back on mechanical rate nightly. Anticoagulation is been particularly cumbersome and made more difficult by Diflucan. Will restart Coumadin again this morning as INR is declined to 2.2 02/14: Remains very weak. Essentially unresponsive. Tolerates brief periods of spontaneous breathing trial blood pressure support must be markedly elevated to the 1820 range. State of hydration gradually improving as osmolality declines and serum creatinine improves. Will continue hypotonic solutions IV. 02/15: Remains unresponsive. Continues to fail spontaneous breathing trials due to lack of respiratory effort. Suffers from tachypnea with an efficient small tidal volumes regardless of the amount of pressure support. 02/16: Onset of copious watery diarrhea is contaminating buttock wounds. We will insert a dignity shield system for fecal management. Remains unresponsive to noxious stimulation. He does have a weak cough reflex. 02/17: Patient is weaker on attempts at spontaneous breathing trials today. Patient remains unresponsive. Only reaction is a weak cough to suctioning. 02/18: Patient continues to do poorly on attempts at spontaneous breathing trials. Urine output is improved with diuresis, will follow renal function closely. 02/19: Albumin 1.1, further evidence that the patient is deteriorating. Responds to diuretics but prerenal azotemia quickly develops. 02/20: Ongoing attempts to remove excess soft tissue and pleural water consistently resolved and renal impairment. Unfortunately this is largely caused by his poor nutritional status. Despite sufficient nutritional support he continues to deteriorate clinically. 02/21: no improvements in function. still grossly anasarca. Cr worsening again. hypernatremia persists. 02/22: no changes. intermittently tachycardic. still gently diuresing. outlook poor. 02/23: no improvements. anemic this AM requiring transfusion of prbc. Family refuses to allow the holding of anticoagulation given multiple recent CVA, so anticoagulation will continue despite anemia. remains hypernatremic despite therapy. 02/24: no changes or improvements. HR came down with transfusion of prbc yesterday. 02/25: hgb stable. Cr worsens slightly. metabolic derangements have improved somewhat and sodium improving. no improvement in neurologic status. poor prognosis. 02/26, 02/27: Remains on mech ventilation via trach. No improvement in neuro status. Subjective 02/28: A.m. laboratories pending. Afebrile. No new changes overnight. Objective Vital Signs / I&O: Vital Signs 02/27/18 09:54 02/27/18 10:00 02/27/18 12:00 Temperature 97.2 F L Pulse Rate 112 H 112 H 88 Respiratory Rate 21 22 Blood Pressure 124/65 Pulse Oximetry 98 02/27/18 12:53 02/27/18 14:00 02/27/18 16:00 Temperature 97.5 F L Pulse Rate 90 95 H Respiratory Rate 27 H 32 H Blood Pressure 131/60 Pulse Oximetry 98 96 02/27/18 16:28 02/27/18 18:00 02/27/18 20:00 Temperature 97.3 F L Pulse Rate 90 85 Respiratory Rate 28 H 23 Blood Pressure 118/59 L Pulse Oximetry 96 96 02/27/18 20:15 02/27/18 22:00 02/27/18 23:37 Temperature Pulse Rate 85 Respiratory Rate 21 22 Blood Pressure Pulse Oximetry 96 98 02/28/18 00:00 02/28/18 02:00 02/28/18 04:00 Temperature 97.0 F L 97.0 F L Pulse Rate 83 80 80 Respiratory Rate 17 19 Blood Pressure 108/58 L 138/86 Pulse Oximetry 99 96 02/28/18 06:00 02/28/18 07:54 Temperature Pulse Rate 80 Respiratory Rate 24 Blood Pressure Pulse Oximetry 95 Intake & Output 02/27/18 02/28/18 02/28/18 18:59 06:59 18:59 Intake Total 1607 / 1607 1250 / 1250 Output Total 2750 / 2750 2400 / 2400 Balance -1143 / -1143 -1150 / -1150 Intake: IV 50 / 50 1/2 Normal Saline Inj 1,000 ML 0 / 0 @ 75 mls/hr IV.CONT .[id number] EDE Rx#:[id number] Avycaz Inj 1.25 GM In NS Inj 50 50 / 50 ML @ 25 mls/hr IV.SIG Q8H EDE Rx#:[id number] Tube Feeding 757 / 757 650 / 650 Tube Irrigant 200 / 200 Water Bolus Amount 600 / 600 600 / 600 Output: Stool 400 / 400 200 / 200 Urine Amount (Catheter) 2349 / 0 2199 / 2199 Indwelling Urethral Catheter 2349 / 2349 2199 / 2199 Other: Date of Last Bowel Movement 02/27/18 02/27/18 Result Diagrams: 02/27/18 03:53 02/27/18 03:53 Other Results: Laboratory Tests 10/14/17 10/14/17 10/14/17 22:05 22:05 22:05 WBC 6.3 RBC 5.09 Hgb 14.7 Hct 44.2 MCV 86.8 MCH 28.9 MCHC 33.3 RDW 15.0 Plt Count 353 MPV 7.9 Prelim Diff (Auto) Neut % (Auto) 39.0 Lymph % (Auto) 48.8 H [place] % (Auto) 9.1 H Eos % (Auto) 2.4 Baso % (Auto) 0.7 Neut # (Auto) 2.5 Lymph # (Auto) 3.1 [place] # (Auto) 0.6 Eos # (Auto) 0.1 Baso # (Auto) 0.0 CBC Comment DIFF FINAL WBC Differential Total Counted Neutrophils % (Manual) Seg Neuts % (Manual) Band Neutrophils % Band Neuts % (Manual) Lymphocytes % Lymphocytes % (Manual) Monocytes % Monocytes % (Manual) Eosinophils % Eosinophils % (Manual) Basophils % Metamyelocytes % (Man) Neutrophils # (Manual) Abs Neuts (Manual) Metamyelocytes Myelocytes Nucleated RBCs Differential Comment Smudge Cells Toxic Granulation Toxic Vacuolation Dohle Bodies Platelet Estimate Platelet Morphology Plt Morphology Comment Basophilic Stippling Spherocytes Tear Drop Cells Ovalocytes Acanthocytes (Spur) RBC Morph Comment ESR Hematology Comments PT 11.0 INR 1.1 APTT 28.8 Fibrinogen Puncture Site Patient Temperature HCO3 Base Excess O2 Saturation ABG pH ABG pCO2 ABG pO2 ABG HCO3 ABG O2 Content ABG Base Excess ABG Carboxyhemoglobin ABG Methemoglobin Stepan Test Hemoglobin Carboxyhemoglobin O2 Delivery Device Liter Flow Vent Setting Inspired O2 Critical Value Sodium 133 L Potassium 4.2 Chloride 99 Carbon Dioxide 25.1 Anion Gap 9 BUN 36 H Creatinine 2.31 H Estimated GFR 28 L POC Glucose Random Glucose 233 H Hemoglobin A1c Lactic Acid Calcium 9.0 Prot Corrected Calcium Phosphorus 4.5 Magnesium 2.2 Total Bilirubin 0.5 Direct Bilirubin Indirect Bilirubin AST 13 L ALT 17 Alkaline Phosphatase 66 Ammonia Total Creatine Kinase Troponin I C-Reactive Protein 0.51 H B-Natriuretic Peptide Total Protein 8.6 H Albumin 3.7 Prealbumin Triglycerides Cholesterol LDL Cholesterol HDL Cholesterol Cholesterol/HDL Ratio Thiamine Vitamin B12 Procalcitonin Free T4 TSH 3rd Generation Urine Color Urine Clarity Urine Turbidity Urine pH Ur Specific [place] Urine Protein Urine Glucose (UA) Urine Ketones Urine Occult Blood Urine Nitrate Urine Nitrite Urine Bilirubin Urine Urobilinogen Ur Leukocyte Esterase Urine RBC Urine WBC Urine WBC Clumps Ur Squamous Epith Cells Ur Transition Epith Cell Ur Renal Epithelial Cell Amorphous Sediment Urine Bacteria Hyaline Casts Granular Casts Urine Mucus Micro UA Comment Urine Culture Comments Urine Eosinophils Urine Osmolality Ur Random Creatinine Ur Random Sodium Pleural pH Pleural WBC Pleural Nuc Cells Pleural RBC Pleural Neutrophils Pleural Eosinophils Pleural Lymphocytes Pleural Monocytes Pleural Histocytes Pleural Mesothelial Pleural Total Protein Pleural Amylase Pleural LDH Pleural Glucose Nasal Screen MRSA (PCR) Stl C.difficile Tox PCR St C. diff Tox Epid 027 Vancomycin Trough Random Vancomycin Phenytoin Free Phenytoin LOWELL Screen RPR Blood Type Antibody Screen MTS Gel [facility] Comment 10/14/17 10/15/17 10/16/17 22:05 11:41 08:36 WBC RBC Hgb Hct MCV MCH MCHC RDW Plt Count MPV Prelim Diff (Auto) Neut % (Auto) Lymph % (Auto) [place] % (Auto) Eos % (Auto) Baso % (Auto) Neut # (Auto) Lymph # (Auto) [place] # (Auto) Eos # (Auto) Baso # (Auto) CBC Comment WBC Differential Total Counted Neutrophils % (Manual) Seg Neuts % (Manual) Band Neutrophils % Band Neuts % (Manual) Lymphocytes % Lymphocytes % (Manual) Monocytes % Monocytes % (Manual) Eosinophils % Eosinophils % (Manual) Basophils % Metamyelocytes % (Man) Neutrophils # (Manual) Abs Neuts (Manual) Metamyelocytes Myelocytes Nucleated RBCs Differential Comment Smudge Cells Toxic Granulation Toxic Vacuolation Dohle Bodies Platelet Estimate Platelet Morphology Plt Morphology Comment Basophilic Stippling Spherocytes Tear Drop Cells Ovalocytes Acanthocytes (Spur) RBC Morph Comment ESR 12 Hematology Comments PT INR APTT Fibrinogen Puncture Site Patient Temperature HCO3 Base Excess O2 Saturation ABG pH ABG pCO2 ABG pO2 ABG HCO3 ABG O2 Content ABG Base Excess ABG Carboxyhemoglobin ABG Methemoglobin Stepan Test Hemoglobin Carboxyhemoglobin O2 Delivery Device Liter Flow Vent Setting Inspired O2 Critical Value Sodium 132 L Potassium 4.3 Chloride 102 Carbon Dioxide 18.8 L Anion Gap 11 BUN 44 H Creatinine 1.98 H Estimated GFR 33 L POC Glucose Random Glucose 386 H D Hemoglobin A1c Lactic Acid Calcium 8.1 L D Prot Corrected Calcium Phosphorus Magnesium Total Bilirubin 0.4 Direct Bilirubin Indirect Bilirubin AST 12 L ALT 13 Alkaline Phosphatase 52 Ammonia Total Creatine Kinase Troponin I C-Reactive Protein B-Natriuretic Peptide Total Protein 7.2 D Albumin 3.0 L D Prealbumin Triglycerides Cholesterol LDL Cholesterol HDL Cholesterol Cholesterol/HDL Ratio Thiamine Vitamin B12 Procalcitonin Free T4 TSH 3rd Generation Urine Color LIGHT-YELLOW Urine Clarity Urine Turbidity CLEAR Urine pH 5.5 Ur Specific [place] 1.012 Urine Protein 100 H Urine Glucose (UA) 300 H Urine Ketones NEG Urine Occult Blood TRACE H Urine Nitrate Urine Nitrite NEG Urine Bilirubin NEG Urine Urobilinogen LESS THAN 2.0 Ur Leukocyte Esterase NEG Urine RBC 1 Urine WBC 1 Urine WBC Clumps Ur Squamous Epith Cells Ur Transition Epith Cell Ur Renal Epithelial Cell Amorphous Sediment Urine Bacteria Hyaline Casts Granular Casts Urine Mucus FEW H Micro UA Comment CULT NOT INDICATED Urine Culture Comments Urine Eosinophils Urine Osmolality Ur Random Creatinine Ur Random Sodium Pleural pH Pleural WBC Pleural Nuc Cells Pleural RBC Pleural Neutrophils Pleural Eosinophils Pleural Lymphocytes Pleural Monocytes Pleural Histocytes Pleural Mesothelial Pleural Total Protein Pleural Amylase Pleural LDH Pleural Glucose Nasal Screen MRSA (PCR) Stl C.difficile Tox PCR St C. diff Tox Epid 027 Vancomycin Trough Random Vancomycin Phenytoin Free Phenytoin LOWELL Screen RPR Blood Type Antibody Screen MTS Gel [facility] Comment 10/16/17 10/17/17 10/17/17 08:36 01:06 13:33 WBC 9.9 RBC 4.20 L Hgb 12.3 L D Hct 37.1 L MCV 88.3 MCH 29.2 MCHC 33.0 RDW 14.4 Plt Count 324 MPV 8.6 Prelim Diff (Auto) Neut % (Auto) 89.3 H Lymph % (Auto) 8.8 L [place] % (Auto) 1.8 Eos % (Auto) 0.0 Baso % (Auto) 0.1 Neut # (Auto) 8.9 H Lymph # (Auto) 0.9 L [place] # (Auto) 0.2 Eos # (Auto) 0.0 Baso # (Auto) 0.0 CBC Comment DIFF FINAL WBC Differential Total Counted Neutrophils % (Manual) Seg Neuts % (Manual) Band Neutrophils % Band Neuts % (Manual) Lymphocytes % Lymphocytes % (Manual) Monocytes % Monocytes % (Manual) Eosinophils % Eosinophils % (Manual) Basophils % Metamyelocytes % (Man) Neutrophils # (Manual) Abs Neuts (Manual) Metamyelocytes Myelocytes Nucleated RBCs Differential Comment Smudge Cells Toxic Granulation Toxic Vacuolation Dohle Bodies Platelet Estimate Platelet Morphology Plt Morphology Comment Basophilic Stippling Spherocytes Tear Drop Cells Ovalocytes Acanthocytes (Spur) RBC Morph Comment ESR Hematology Comments PT INR APTT Fibrinogen Puncture Site Patient Temperature HCO3 Base Excess O2 Saturation ABG pH ABG pCO2 ABG pO2 ABG HCO3 ABG O2 Content ABG Base Excess ABG Carboxyhemoglobin ABG Methemoglobin Stepan Test Hemoglobin Carboxyhemoglobin O2 Delivery Device Liter Flow Vent Setting Inspired O2 Critical Value Sodium Potassium Chloride Carbon Dioxide Anion Gap BUN Creatinine Estimated GFR POC Glucose Random Glucose Hemoglobin A1c Lactic Acid Calcium Prot Corrected Calcium Phosphorus Magnesium Total Bilirubin Direct Bilirubin Indirect Bilirubin AST ALT Alkaline Phosphatase Ammonia Total Creatine Kinase 252 171 Troponin I LESS THAN 0.02 L 0.03 C-Reactive Protein B-Natriuretic Peptide Total Protein Albumin Prealbumin Triglycerides Cholesterol LDL Cholesterol HDL Cholesterol Cholesterol/HDL Ratio Thiamine Vitamin B12 Procalcitonin Free T4 TSH 3rd Generation Urine Color Urine Clarity Urine Turbidity Urine pH Ur Specific [place] Urine Protein Urine Glucose (UA) Urine Ketones Urine Occult Blood Urine Nitrate Urine Nitrite Urine Bilirubin Urine Urobilinogen Ur Leukocyte Esterase Urine RBC Urine WBC Urine WBC Clumps Ur Squamous Epith Cells Ur Transition Epith Cell Ur Renal Epithelial Cell Amorphous Sediment Urine Bacteria Hyaline Casts Granular Casts Urine Mucus Micro UA Comment Urine Culture Comments Urine Eosinophils Urine Osmolality Ur Random Creatinine Ur Random Sodium Pleural pH Pleural WBC Pleural Nuc Cells Pleural RBC Pleural Neutrophils Pleural Eosinophils Pleural Lymphocytes Pleural Monocytes Pleural Histocytes Pleural Mesothelial Pleural Total Protein Pleural Amylase Pleural LDH Pleural Glucose Nasal Screen MRSA (PCR) Stl C.difficile Tox PCR St C. diff Tox Epid 027 Vancomycin Trough Random Vancomycin Phenytoin Free Phenytoin LOWELL Screen RPR Blood Type Antibody Screen MTS Gel [facility] Comment 10/18/17 10/18/17 10/18/17 03:10 05:02 05:02 WBC RBC Hgb Hct MCV MCH MCHC RDW Plt Count MPV Prelim Diff (Auto) Neut % (Auto) Lymph % (Auto) [place] % (Auto) Eos % (Auto) Baso % (Auto) Neut # (Auto) Lymph # (Auto) [place] # (Auto) Eos # (Auto) Baso # (Auto) CBC Comment WBC Differential Total Counted Neutrophils % (Manual) Seg Neuts % (Manual) Band Neutrophils % Band Neuts % (Manual) Lymphocytes % Lymphocytes % (Manual) Monocytes % Monocytes % (Manual) Eosinophils % Eosinophils % (Manual) Basophils % Metamyelocytes % (Man) Neutrophils # (Manual) Abs Neuts (Manual) Metamyelocytes Myelocytes Nucleated RBCs Differential Comment Smudge Cells Toxic Granulation Toxic Vacuolation Dohle Bodies Platelet Estimate Platelet Morphology Plt Morphology Comment Basophilic Stippling Spherocytes Tear Drop Cells Ovalocytes Acanthocytes (Spur) RBC Morph Comment ESR Hematology Comments PT INR APTT Fibrinogen Puncture Site Patient Temperature HCO3 Base Excess O2 Saturation ABG pH ABG pCO2 ABG pO2 ABG HCO3 ABG O2 Content ABG Base Excess ABG Carboxyhemoglobin ABG Methemoglobin Stepan Test Hemoglobin Carboxyhemoglobin O2 Delivery Device Liter Flow Vent Setting Inspired O2 Critical Value Sodium 131 L Potassium 4.2 Chloride 98 Carbon Dioxide 21.9 Anion Gap 11 BUN 47 H Creatinine 1.89 H Estimated GFR 35 L POC Glucose Random Glucose 318 H Hemoglobin A1c Lactic Acid Calcium 8.4 L Prot Corrected Calcium Phosphorus Magnesium 2.2 Total Bilirubin 0.6 Direct Bilirubin Indirect Bilirubin AST 36 ALT 21 Alkaline Phosphatase 50 Ammonia Total Creatine Kinase 111 178 Troponin I 0.05 1.02 H* D C-Reactive Protein B-Natriuretic Peptide 229 H Total Protein 7.4 Albumin 2.9 L Prealbumin Triglycerides Cholesterol LDL Cholesterol HDL Cholesterol Cholesterol/HDL Ratio Thiamine Vitamin B12 Procalcitonin Free T4 TSH 3rd Generation Urine Color Urine Clarity Urine Turbidity Urine pH Ur Specific [place] Urine Protein Urine Glucose (UA) Urine Ketones Urine Occult Blood Urine Nitrate Urine Nitrite Urine Bilirubin Urine Urobilinogen Ur Leukocyte Esterase Urine RBC Urine WBC Urine WBC Clumps Ur Squamous Epith Cells Ur Transition Epith Cell Ur Renal Epithelial Cell Amorphous Sediment Urine Bacteria Hyaline Casts Granular Casts Urine Mucus Micro UA Comment Urine Culture Comments Urine Eosinophils Urine Osmolality Ur Random Creatinine Ur Random Sodium Pleural pH Pleural WBC Pleural Nuc Cells Pleural RBC Pleural Neutrophils Pleural Eosinophils Pleural Lymphocytes Pleural Monocytes Pleural Histocytes Pleural Mesothelial Pleural Total Protein Pleural Amylase Pleural LDH Pleural Glucose Nasal Screen MRSA (PCR) Stl C.difficile Tox PCR St C. diff Tox Epid 027 Vancomycin Trough Random Vancomycin Phenytoin Free Phenytoin LOWELL Screen RPR Blood Type Antibody Screen MTS Gel [facility] Comment 10/18/17 10/18/17 10/18/17 05:02 06:30 12:24 WBC 13.0 H RBC 4.55 Hgb 13.1 Hct 39.8 MCV 87.4 MCH 28.8 MCHC 33.0 RDW 14.5 Plt Count 368 MPV 9.1 Prelim Diff (Auto) Neut % (Auto) 92.5 H Lymph % (Auto) 2.1 L [place] % (Auto) 5.3 Eos % (Auto) 0.0 Baso % (Auto) 0.1 Neut # (Auto) 12.0 H Lymph # (Auto) 0.3 L [place] # (Auto) 0.7 Eos # (Auto) 0.0 Baso # (Auto) 0.0 CBC Comment DIFF FINAL WBC Differential Total Counted Neutrophils % (Manual) Seg Neuts % (Manual) Band Neutrophils % Band Neuts % (Manual) Lymphocytes % Lymphocytes % (Manual) Monocytes % Monocytes % (Manual) Eosinophils % Eosinophils % (Manual) Basophils % Metamyelocytes % (Man) Neutrophils # (Manual) Abs Neuts (Manual) Metamyelocytes Myelocytes Nucleated RBCs Differential Comment Smudge Cells Toxic Granulation Toxic Vacuolation Dohle Bodies Platelet Estimate Platelet Morphology Plt Morphology Comment Basophilic Stippling Spherocytes Tear Drop Cells Ovalocytes Acanthocytes (Spur) RBC Morph Comment ESR Hematology Comments PT 10.7 INR 1.1 APTT 23.1 L Fibrinogen Puncture Site Patient Temperature HCO3 Base Excess O2 Saturation ABG pH ABG pCO2 ABG pO2 ABG HCO3 ABG O2 Content ABG Base Excess ABG Carboxyhemoglobin ABG Methemoglobin Stepan Test Hemoglobin Carboxyhemoglobin O2 Delivery Device Liter Flow Vent Setting Inspired O2 Critical Value Sodium Potassium Chloride Carbon Dioxide Anion Gap BUN Creatinine Estimated GFR POC Glucose Random Glucose Hemoglobin A1c Lactic Acid Calcium Prot Corrected Calcium Phosphorus Magnesium Total Bilirubin Direct Bilirubin Indirect Bilirubin AST ALT Alkaline Phosphatase Ammonia Total Creatine Kinase 169 Troponin I 10.50 H* D C-Reactive Protein B-Natriuretic Peptide Total Protein Albumin Prealbumin Triglycerides Cholesterol LDL Cholesterol HDL Cholesterol Cholesterol/HDL Ratio Thiamine Vitamin B12 Procalcitonin Free T4 TSH 3rd Generation Urine Color Urine Clarity Urine Turbidity Urine pH Ur Specific [place] Urine Protein Urine Glucose (UA) Urine Ketones Urine Occult Blood Urine Nitrate Urine Nitrite Urine Bilirubin Urine Urobilinogen Ur Leukocyte Esterase Urine RBC Urine WBC Urine WBC Clumps Ur Squamous Epith Cells Ur Transition Epith Cell Ur Renal Epithelial Cell Amorphous Sediment Urine Bacteria Hyaline Casts Granular Casts Urine Mucus Micro UA Comment Urine Culture Comments Urine Eosinophils Urine Osmolality Ur Random Creatinine Ur Random Sodium Pleural pH Pleural WBC Pleural Nuc Cells Pleural RBC Pleural Neutrophils Pleural Eosinophils Pleural Lymphocytes Pleural Monocytes Pleural Histocytes Pleural Mesothelial Pleural Total Protein Pleural Amylase Pleural LDH Pleural Glucose Nasal Screen MRSA (PCR) Stl C.difficile Tox PCR St C. diff Tox Epid 027 Vancomycin Trough Random Vancomycin Phenytoin Free Phenytoin LOWELL Screen RPR Blood Type Antibody Screen MTS Gel [facility] Comment 10/18/17 10/18/17 10/19/17 12:24 20:00 02:55 WBC RBC Hgb Hct MCV MCH MCHC RDW Plt Count MPV Prelim Diff (Auto) Neut % (Auto) Lymph % (Auto) [place] % (Auto) Eos % (Auto) Baso % (Auto) Neut # (Auto) Lymph # (Auto) [place] # (Auto) Eos # (Auto) Baso # (Auto) CBC Comment WBC Differential Total Counted Neutrophils % (Manual) Seg Neuts % (Manual) Band Neutrophils % Band Neuts % (Manual) Lymphocytes % Lymphocytes % (Manual) Monocytes % Monocytes % (Manual) Eosinophils % Eosinophils % (Manual) Basophils % Metamyelocytes % (Man) Neutrophils # (Manual) Abs Neuts (Manual) Metamyelocytes Myelocytes Nucleated RBCs Differential Comment Smudge Cells Toxic Granulation Toxic Vacuolation Dohle Bodies Platelet Estimate Platelet Morphology Plt Morphology Comment Basophilic Stippling Spherocytes Tear Drop Cells Ovalocytes Acanthocytes (Spur) RBC Morph Comment ESR Hematology Comments PT INR APTT 26.1 28.0 Fibrinogen Puncture Site Patient Temperature HCO3 Base Excess O2 Saturation ABG pH ABG pCO2 ABG pO2 ABG HCO3 ABG O2 Content ABG Base Excess ABG Carboxyhemoglobin ABG Methemoglobin Stepan Test Hemoglobin Carboxyhemoglobin O2 Delivery Device Liter Flow Vent Setting Inspired O2 Critical Value Sodium Potassium Chloride Carbon Dioxide Anion Gap BUN Creatinine Estimated GFR POC Glucose Random Glucose Hemoglobin A1c Lactic Acid Calcium Prot Corrected Calcium Phosphorus Magnesium Total Bilirubin Direct Bilirubin Indirect Bilirubin AST ALT Alkaline Phosphatase Ammonia Total Creatine Kinase Troponin I C-Reactive Protein B-Natriuretic Peptide Total Protein Albumin Prealbumin Triglycerides 71 Cholesterol 147 LDL Cholesterol 81 HDL Cholesterol 52.3 Cholesterol/HDL Ratio 2.81 Thiamine Vitamin B12 Procalcitonin Free T4 TSH 3rd Generation Urine Color Urine Clarity Urine Turbidity Urine pH Ur Specific [place] Urine Protein Urine Glucose (UA) Urine Ketones Urine Occult Blood Urine Nitrate Urine Nitrite Urine Bilirubin Urine Urobilinogen Ur Leukocyte Esterase Urine RBC Urine WBC Urine WBC Clumps Ur Squamous Epith Cells Ur Transition Epith Cell Ur Renal Epithelial Cell Amorphous Sediment Urine Bacteria Hyaline Casts Granular Casts Urine Mucus Micro UA Comment Urine Culture Comments Urine Eosinophils Urine Osmolality Ur Random Creatinine Ur Random Sodium Pleural pH Pleural WBC Pleural Nuc Cells Pleural RBC Pleural Neutrophils Pleural Eosinophils Pleural Lymphocytes Pleural Monocytes Pleural Histocytes Pleural Mesothelial Pleural Total Protein Pleural Amylase Pleural LDH Pleural Glucose Nasal Screen MRSA (PCR) Stl C.difficile Tox PCR St C. diff Tox Epid 027 Vancomycin Trough Random Vancomycin Phenytoin Free Phenytoin LOWELL Screen RPR Blood Type Antibody Screen MTS Gel [facility] Comment 10/19/17 10/19/17 10/19/17 02:55 10:20 18:24 WBC RBC Hgb Hct MCV MCH MCHC RDW Plt Count MPV Prelim Diff (Auto) Neut % (Auto) Lymph % (Auto) [place] % (Auto) Eos % (Auto) Baso % (Auto) Neut # (Auto) Lymph # (Auto) [place] # (Auto) Eos # (Auto) Baso # (Auto) CBC Comment WBC Differential Total Counted Neutrophils % (Manual) Seg Neuts % (Manual) Band Neutrophils % Band Neuts % (Manual) Lymphocytes % Lymphocytes % (Manual) Monocytes % Monocytes % (Manual) Eosinophils % Eosinophils % (Manual) Basophils % Metamyelocytes % (Man) Neutrophils # (Manual) Abs Neuts (Manual) Metamyelocytes Myelocytes Nucleated RBCs Differential Comment Smudge Cells Toxic Granulation Toxic Vacuolation Dohle Bodies Platelet Estimate Platelet Morphology Plt Morphology Comment Basophilic Stippling Spherocytes Tear Drop Cells Ovalocytes Acanthocytes (Spur) RBC Morph Comment ESR Hematology Comments PT INR APTT 30.0 36.6 H D 43.3 H Fibrinogen Puncture Site Patient Temperature HCO3 Base Excess O2 Saturation ABG pH ABG pCO2 ABG pO2 ABG HCO3 ABG O2 Content ABG Base Excess ABG Carboxyhemoglobin ABG Methemoglobin Stepan Test Hemoglobin Carboxyhemoglobin O2 Delivery Device Liter Flow Vent Setting Inspired O2 Critical Value Sodium Potassium Chloride Carbon Dioxide Anion Gap BUN Creatinine Estimated GFR POC Glucose Random Glucose Hemoglobin A1c Lactic Acid Calcium Prot Corrected Calcium Phosphorus Magnesium Total Bilirubin Direct Bilirubin Indirect Bilirubin AST ALT Alkaline Phosphatase Ammonia Total Creatine Kinase Troponin I C-Reactive Protein B-Natriuretic Peptide Total Protein Albumin Prealbumin Triglycerides Cholesterol LDL Cholesterol HDL Cholesterol Cholesterol/HDL Ratio Thiamine Vitamin B12 Procalcitonin Free T4 TSH 3rd Generation Urine Color Urine Clarity Urine Turbidity Urine pH Ur Specific [place] Urine Protein Urine Glucose (UA) Urine Ketones Urine Occult Blood Urine Nitrate Urine Nitrite Urine Bilirubin Urine Urobilinogen Ur Leukocyte Esterase Urine RBC Urine WBC Urine WBC Clumps Ur Squamous Epith Cells Ur Transition Epith Cell Ur Renal Epithelial Cell Amorphous Sediment Urine Bacteria Hyaline Casts Granular Casts Urine Mucus Micro UA Comment Urine Culture Comments Urine Eosinophils Urine Osmolality Ur Random Creatinine Ur Random Sodium Pleural pH Pleural WBC Pleural Nuc Cells Pleural RBC Pleural Neutrophils Pleural Eosinophils Pleural Lymphocytes Pleural Monocytes Pleural Histocytes Pleural Mesothelial Pleural Total Protein Pleural Amylase Pleural LDH Pleural Glucose Nasal Screen MRSA (PCR) Stl C.difficile Tox PCR St C. diff Tox Epid 027 Vancomycin Trough Random Vancomycin Phenytoin Free Phenytoin LOWELL Screen RPR Blood Type Antibody Screen MTS Gel [facility] Comment 10/19/17 10/20/17 10/20/17 23:48 06:20 06:20 WBC RBC Hgb Hct MCV MCH MCHC RDW Plt Count MPV Prelim Diff (Auto) Neut % (Auto) Lymph % (Auto) [place] % (Auto) Eos % (Auto) Baso % (Auto) Neut # (Auto) Lymph # (Auto) [place] # (Auto) Eos # (Auto) Baso # (Auto) CBC Comment WBC Differential Total Counted Neutrophils % (Manual) Seg Neuts % (Manual) Band Neutrophils % Band Neuts % (Manual) Lymphocytes % Lymphocytes % (Manual) Monocytes % Monocytes % (Manual) Eosinophils % Eosinophils % (Manual) Basophils % Metamyelocytes % (Man) Neutrophils # (Manual) Abs Neuts (Manual) Metamyelocytes Myelocytes Nucleated RBCs Differential Comment Smudge Cells Toxic Granulation Toxic Vacuolation Dohle Bodies Platelet Estimate Platelet Morphology Plt Morphology Comment Basophilic Stippling Spherocytes Tear Drop Cells Ovalocytes Acanthocytes (Spur) RBC Morph Comment ESR Hematology Comments PT INR APTT 42.8 H Fibrinogen Puncture Site Patient Temperature HCO3 Base Excess O2 Saturation ABG pH ABG pCO2 ABG pO2 ABG HCO3 ABG O2 Content ABG Base Excess ABG Carboxyhemoglobin ABG Methemoglobin Stepan Test Hemoglobin Carboxyhemoglobin O2 Delivery Device Liter Flow Vent Setting Inspired O2 Critical Value Sodium 133 L Potassium 4.2 Chloride 98 Carbon Dioxide 22.7 Anion Gap 12 BUN 74 H D Creatinine 2.10 H Estimated GFR 31 L POC Glucose Random Glucose 255 H Hemoglobin A1c Lactic Acid Calcium 7.4 L* Prot Corrected Calcium 8.1 L Phosphorus Magnesium Total Bilirubin Direct Bilirubin Indirect Bilirubin AST ALT Alkaline Phosphatase Ammonia Total Creatine Kinase Troponin I 1.71 H* D C-Reactive Protein B-Natriuretic Peptide Total Protein 5.8 L D Albumin Prealbumin Triglycerides Cholesterol LDL Cholesterol HDL Cholesterol Cholesterol/HDL Ratio Thiamine Vitamin B12 Procalcitonin Free T4 TSH 3rd Generation Urine Color Urine Clarity Urine Turbidity Urine pH Ur Specific [place] Urine Protein Urine Glucose (UA) Urine Ketones Urine Occult Blood Urine Nitrate Urine Nitrite Urine Bilirubin Urine Urobilinogen Ur Leukocyte Esterase Urine RBC Urine WBC Urine WBC Clumps Ur Squamous Epith Cells Ur Transition Epith Cell Ur Renal Epithelial Cell Amorphous Sediment Urine Bacteria Hyaline Casts Granular Casts Urine Mucus Micro UA Comment Urine Culture Comments Urine Eosinophils Urine Osmolality Ur Random Creatinine Ur Random Sodium Pleural pH Pleural WBC Pleural Nuc Cells Pleural RBC Pleural Neutrophils Pleural Eosinophils Pleural Lymphocytes Pleural Monocytes Pleural Histocytes Pleural Mesothelial Pleural Total Protein Pleural Amylase Pleural LDH Pleural Glucose Nasal Screen MRSA (PCR) Stl C.difficile Tox PCR St C. diff Tox Epid 027 Vancomycin Trough Random Vancomycin Phenytoin Free Phenytoin LOWELL Screen RPR Blood Type Antibody Screen MTS Gel [facility] Comment 10/20/17 10/21/17 10/22/17 06:20 05:25 04:54 WBC RBC Hgb Hct MCV MCH MCHC RDW Plt Count MPV Prelim Diff (Auto) Neut % (Auto) Lymph % (Auto) [place] % (Auto) Eos % (Auto) Baso % (Auto) Neut # (Auto) Lymph # (Auto) [place] # (Auto) Eos # (Auto) Baso # (Auto) CBC Comment WBC Differential Total Counted Neutrophils % (Manual) Seg Neuts % (Manual) Band Neutrophils % Band Neuts % (Manual) Lymphocytes % Lymphocytes % (Manual) Monocytes % Monocytes % (Manual) Eosinophils % Eosinophils % (Manual) Basophils % Metamyelocytes % (Man) Neutrophils # (Manual) Abs Neuts (Manual) Metamyelocytes Myelocytes Nucleated RBCs Differential Comment Smudge Cells Toxic Granulation Toxic Vacuolation Dohle Bodies Platelet Estimate Platelet Morphology Plt Morphology Comment Basophilic Stippling Spherocytes Tear Drop Cells Ovalocytes Acanthocytes (Spur) RBC Morph Comment ESR Hematology Comments PT INR APTT 53.7 H D Fibrinogen Puncture Site Patient Temperature HCO3 Base Excess O2 Saturation ABG pH ABG pCO2 ABG pO2 ABG HCO3 ABG O2 Content ABG Base Excess ABG Carboxyhemoglobin ABG Methemoglobin Stepan Test Hemoglobin Carboxyhemoglobin O2 Delivery Device Liter Flow Vent Setting Inspired O2 Critical Value Sodium 136 137 Potassium 4.2 4.3 Chloride 103 103 Carbon Dioxide 22.5 25.2 Anion Gap 11 9 BUN 69 H 61 H Creatinine 1.91 H 1.70 H Estimated GFR 34 L 39 L POC Glucose Random Glucose 92 D 160 H Hemoglobin A1c Lactic Acid Calcium 8.2 L D 8.2 L Prot Corrected Calcium Phosphorus 3.4 Magnesium Total Bilirubin Direct Bilirubin Indirect Bilirubin AST ALT Alkaline Phosphatase Ammonia Total Creatine Kinase Troponin I C-Reactive Protein B-Natriuretic Peptide Total Protein Albumin Prealbumin Triglycerides Cholesterol LDL Cholesterol HDL Cholesterol Cholesterol/HDL Ratio Thiamine Vitamin B12 Procalcitonin Free T4 TSH 3rd Generation Urine Color Urine Clarity Urine Turbidity Urine pH Ur Specific [place] Urine Protein Urine Glucose (UA) Urine Ketones Urine Occult Blood Urine Nitrate Urine Nitrite Urine Bilirubin Urine Urobilinogen Ur Leukocyte Esterase Urine RBC Urine WBC Urine WBC Clumps Ur Squamous Epith Cells Ur Transition Epith Cell Ur Renal Epithelial Cell Amorphous Sediment Urine Bacteria Hyaline Casts Granular Casts Urine Mucus Micro UA Comment Urine Culture Comments Urine Eosinophils Urine Osmolality Ur Random Creatinine Ur Random Sodium Pleural pH Pleural WBC Pleural Nuc Cells Pleural RBC Pleural Neutrophils Pleural Eosinophils Pleural Lymphocytes Pleural Monocytes Pleural Histocytes Pleural Mesothelial Pleural Total Protein Pleural Amylase Pleural LDH Pleural Glucose Nasal Screen MRSA (PCR) Stl C.difficile Tox PCR St C. diff Tox Epid 027 Vancomycin Trough Random Vancomycin Phenytoin Free Phenytoin LOWELL Screen RPR Blood Type Antibody Screen MTS Gel Cross[facility] Blood [facility] Comment 10/22/17 10/22/17 10/22/17 04:59 12:00 12:00 WBC 11.2 H RBC 4.31 L Hgb 12.6 L Hct 37.5 L MCV 87.1 MCH 29.2 MCHC 33.5 RDW 14.4 Plt Count 267 MPV 9.0 Prelim Diff (Auto) Neut % (Auto) 87.0 H Lymph % (Auto) 6.2 L [place] % (Auto) 6.7 Eos % (Auto) 0.0 Baso % (Auto) 0.1 Neut # (Auto) 9.7 H Lymph # (Auto) 0.7 L [place] # (Auto) 0.7 Eos # (Auto) 0.0 Baso # (Auto) 0.0 CBC Comment DIFF FINAL WBC Differential Total Counted Neutrophils % (Manual) Seg Neuts % (Manual) Band Neutrophils % Band Neuts % (Manual) Lymphocytes % Lymphocytes % (Manual) Monocytes % Monocytes % (Manual) Eosinophils % Eosinophils % (Manual) Basophils % Metamyelocytes % (Man) Neutrophils # (Manual) Abs Neuts (Manual) Metamyelocytes Myelocytes Nucleated RBCs Differential Comment Smudge Cells Toxic Granulation Toxic Vacuolation Dohle Bodies Platelet Estimate Platelet Morphology Plt Morphology Comment Basophilic Stippling Spherocytes Tear Drop Cells Ovalocytes Acanthocytes (Spur) RBC Morph Comment ESR Hematology Comments PT INR APTT Fibrinogen Puncture Site Patient Temperature HCO3 Base Excess O2 Saturation ABG pH ABG pCO2 ABG pO2 ABG HCO3 ABG O2 Content ABG Base Excess ABG Carboxyhemoglobin ABG Methemoglobin Stepan Test Hemoglobin Carboxyhemoglobin O2 Delivery Device Liter Flow Vent Setting Inspired O2 Critical Value Sodium Potassium Chloride Carbon Dioxide Anion Gap BUN Creatinine Estimated GFR POC Glucose Random Glucose Hemoglobin A1c Lactic Acid Calcium Prot Corrected Calcium Phosphorus Magnesium Total Bilirubin Direct Bilirubin Indirect Bilirubin AST ALT Alkaline Phosphatase Ammonia Total Creatine Kinase Troponin I C-Reactive Protein B-Natriuretic Peptide Total Protein Albumin Prealbumin Triglycerides Cholesterol LDL Cholesterol HDL Cholesterol Cholesterol/HDL Ratio Thiamine Vitamin B12 Procalcitonin Free T4 TSH 3rd Generation Urine Color Urine Clarity Urine Turbidity Urine pH Ur Specific [place] Urine Protein Urine Glucose (UA) Urine Ketones Urine Occult Blood Urine Nitrate Urine Nitrite Urine Bilirubin Urine Urobilinogen Ur Leukocyte Esterase Urine RBC Urine WBC Urine WBC Clumps Ur Squamous Epith Cells Ur Transition Epith Cell Ur Renal Epithelial Cell Amorphous Sediment Urine Bacteria Hyaline Casts Granular Casts Urine Mucus Micro UA Comment Urine Culture Comments Urine Eosinophils NONE SEEN Urine Osmolality 509 Ur Random Creatinine 37.9 Ur Random Sodium 77 Pleural pH Pleural WBC Pleural Nuc Cells Pleural RBC Pleural Neutrophils Pleural Eosinophils Pleural Lymphocytes Pleural Monocytes Pleural Histocytes Pleural Mesothelial Pleural Total Protein Pleural Amylase Pleural LDH Pleural Glucose Nasal Screen MRSA (PCR) Stl C.difficile Tox PCR St C. diff Tox Epid 027 Vancomycin Trough Random Vancomycin Phenytoin Free Phenytoin LOWELL Screen RPR Blood Type Antibody Screen MTS Gel Crossmatch Blood Bank Comment 10/23/17 10/23/17 10/23/17 10:03 10:03 10:03 WBC RBC Hgb Hct MCV MCH MCHC RDW Plt Count MPV Prelim Diff (Auto) Neut % (Auto) Lymph % (Auto) [place] % (Auto) Eos % (Auto) Baso % (Auto) Neut # (Auto) Lymph # (Auto) [place] # (Auto) Eos # (Auto) Baso # (Auto) CBC Comment WBC Differential Total Counted Neutrophils % (Manual) Seg Neuts % (Manual) Band Neutrophils % Band Neuts % (Manual) Lymphocytes % Lymphocytes % (Manual) Monocytes % Monocytes % (Manual) Eosinophils % Eosinophils % (Manual) Basophils % Metamyelocytes % (Man) Neutrophils # (Manual) Abs Neuts (Manual) Metamyelocytes Myelocytes Nucleated RBCs Differential Comment Smudge Cells Toxic Granulation Toxic Vacuolation Dohle Bodies Platelet Estimate Platelet Morphology Plt Morphology Comment Basophilic Stippling Spherocytes Tear Drop Cells Ovalocytes Acanthocytes (Spur) RBC Morph Comment ESR Hematology Comments PT INR APTT Fibrinogen Puncture Site Patient Temperature HCO3 Base Excess O2 Saturation ABG pH ABG pCO2 ABG pO2 ABG HCO3 ABG O2 Content ABG Base Excess ABG Carboxyhemoglobin ABG Methemoglobin Stepan Test Hemoglobin Carboxyhemoglobin O2 Delivery Device Liter Flow Vent Setting Inspired O2 Critical Value Sodium 136 Potassium 4.7 Chloride 102 Carbon Dioxide 23.0 Anion Gap 11 BUN 62 H Creatinine 1.85 H Estimated GFR 36 L POC Glucose Random Glucose 270 H D Hemoglobin A1c Lactic Acid Calcium 8.3 L Prot Corrected Calcium Phosphorus Magnesium Total Bilirubin 0.4 Cancelled Direct Bilirubin 0.1 Cancelled Indirect Bilirubin 0.3 Cancelled AST 8 L Cancelled ALT 18 Cancelled Alkaline Phosphatase 47 Cancelled Ammonia Total Creatine Kinase 44 Troponin I 0.31 H D C-Reactive Protein B-Natriuretic Peptide Total Protein 6.0 L Cancelled Albumin 2.2 L Cancelled Prealbumin Triglycerides Cholesterol LDL Cholesterol HDL Cholesterol Cholesterol/HDL Ratio Thiamine Vitamin B12 Procalcitonin Free T4 TSH 3rd Generation Urine Color Urine Clarity Urine Turbidity Urine pH Ur Specific [place] Urine Protein Urine Glucose (UA) Urine Ketones Urine Occult Blood Urine Nitrate Urine Nitrite Urine Bilirubin Urine Urobilinogen Ur Leukocyte Esterase Urine RBC Urine WBC Urine WBC Clumps Ur Squamous Epith Cells Ur Transition Epith Cell Ur Renal Epithelial Cell Amorphous Sediment Urine Bacteria Hyaline Casts Granular Casts Urine Mucus Micro UA Comment Urine Culture Comments Urine Eosinophils Urine Osmolality Ur Random Creatinine Ur Random Sodium Pleural pH Pleural WBC Pleural Nuc Cells Pleural RBC Pleural Neutrophils Pleural Eosinophils Pleural Lymphocytes Pleural Monocytes Pleural Histocytes Pleural Mesothelial Pleural Total Protein Pleural Amylase Pleural LDH Pleural Glucose Nasal Screen MRSA (PCR) Stl C.difficile Tox PCR St C. diff Tox Epid 027 Vancomycin Trough Random Vancomycin Phenytoin Free Phenytoin LOWELL Screen RPR Blood Type Antibody Screen MTS Gel Crossmatch Blood Bank Comment 10/24/17 10/24/17 10/24/17 07:13 07:13 21:45 WBC 30.3 H RBC 4.00 L Hgb 11.5 L Hct 34.5 L MCV 86.2 MCH 28.8 MCHC 33.5 RDW 14.6 Plt Count 199 MPV 9.4 Prelim Diff (Auto) Neut % (Auto) 90.8 H Lymph % (Auto) 3.1 L [place] % (Auto) 6.0 Eos % (Auto) 0.0 Baso % (Auto) 0.1 Neut # (Auto) 27.5 H Lymph # (Auto) 0.9 L [place] # (Auto) 1.8 H Eos # (Auto) 0.0 Baso # (Auto) 0.0 CBC Comment AUTO DIFF WBC Differential Total Counted 100 Neutrophils % (Manual) 64 Seg Neuts % (Manual) Band Neutrophils % 29 H Band Neuts % (Manual) Lymphocytes % 4 L Lymphocytes % (Manual) Monocytes % 3 Monocytes % (Manual) Eosinophils % Eosinophils % (Manual) Basophils % Metamyelocytes % (Man) Neutrophils # (Manual) 28.2 H Abs Neuts (Manual) Metamyelocytes Myelocytes Nucleated RBCs Differential Comment FINAL DIFF MANUAL Smudge Cells Toxic Granulation Toxic Vacuolation Dohle Bodies Platelet Estimate NORMAL Platelet Morphology Plt Morphology Comment NORMAL Basophilic Stippling Spherocytes Tear Drop Cells Ovalocytes Acanthocytes (Spur) RBC Morph Comment NORMAL ESR Hematology Comments PT INR APTT Fibrinogen Puncture Site Patient Temperature HCO3 Base Excess O2 Saturation ABG pH ABG pCO2 ABG pO2 ABG HCO3 ABG O2 Content ABG Base Excess ABG Carboxyhemoglobin ABG Methemoglobin Stepan Test Hemoglobin Carboxyhemoglobin O2 Delivery Device Liter Flow Vent Setting Inspired O2 Critical Value Sodium 138 Potassium 4.8 Chloride 103 Carbon Dioxide 25.0 Anion Gap 10 BUN 54 H Creatinine 1.81 H Estimated GFR 36 L POC Glucose Random Glucose 158 H D Hemoglobin A1c Lactic Acid Calcium 8.0 L Prot Corrected Calcium Phosphorus Magnesium Total Bilirubin Direct Bilirubin Indirect Bilirubin AST ALT Alkaline Phosphatase Ammonia Total Creatine Kinase Troponin I C-Reactive Protein B-Natriuretic Peptide Total Protein Albumin Prealbumin Triglycerides Cholesterol LDL Cholesterol HDL Cholesterol Cholesterol/HDL Ratio Thiamine Vitamin B12 Procalcitonin Free T4 TSH 3rd Generation Urine Color YELLOW Urine Clarity Urine Turbidity HAZY H Urine pH 5.5 Ur Specific [place] 1.012 Urine Protein 30 H Urine Glucose (UA) NEG Urine Ketones NEG Urine Occult Blood MOD H Urine Nitrate Urine Nitrite NEG Urine Bilirubin NEG Urine Urobilinogen LESS THAN 2.0 Ur Leukocyte Esterase LARGE H Urine RBC 4 H Urine WBC Urine WBC Clumps FEW H Ur Squamous Epith Cells <1 Ur Transition Epith Cell <1 Ur Renal Epithelial Cell Amorphous Sediment Urine Bacteria OCC H Hyaline Casts Granular Casts Urine Mucus FEW H Micro UA Comment CULTURE INDICATED Urine Culture Comments Urine Eosinophils Urine Osmolality Ur Random Creatinine Ur Random Sodium Pleural pH Pleural WBC Pleural Nuc Cells Pleural RBC Pleural Neutrophils Pleural Eosinophils Pleural Lymphocytes Pleural Monocytes Pleural Histocytes Pleural Mesothelial Pleural Total Protein Pleural Amylase Pleural LDH Pleural Glucose Nasal Screen MRSA (PCR) Stl C.difficile Tox PCR St C. diff Tox Epid 027 Vancomycin Trough Random Vancomycin Phenytoin Free Phenytoin LOWELL Screen RPR Blood Type Antibody Screen MTS Gel Crossmatch Blood Bank Comment 10/24/17 10/25/17 10/25/17 22:04 07:17 07:19 WBC 23.3 H RBC 3.89 L Hgb 11.3 L Hct 34.0 L MCV 87.6 MCH 29.1 MCHC 33.2 RDW 14.8 Plt Count 170 MPV 9.6 Prelim Diff (Auto) Neut % (Auto) 97.5 H Lymph % (Auto) 1.5 L [place] % (Auto) 0.9 Eos % (Auto) 0.0 Baso % (Auto) 0.1 Neut # (Auto) 22.7 H Lymph # (Auto) 0.4 L [place] # (Auto) 0.2 Eos # (Auto) 0.0 Baso # (Auto) 0.0 CBC Comment DIFF FINAL WBC Differential Total Counted Neutrophils % (Manual) Seg Neuts % (Manual) Band Neutrophils % Band Neuts % (Manual) Lymphocytes % Lymphocytes % (Manual) Monocytes % Monocytes % (Manual) Eosinophils % Eosinophils % (Manual) Basophils % Metamyelocytes % (Man) Neutrophils # (Manual) Abs Neuts (Manual) Metamyelocytes Myelocytes Nucleated RBCs Differential Comment Smudge Cells Toxic Granulation Toxic Vacuolation Dohle Bodies Platelet Estimate Platelet Morphology Plt Morphology Comment Basophilic Stippling Spherocytes Tear Drop Cells Ovalocytes Acanthocytes (Spur) RBC Morph Comment ESR Hematology Comments PT INR APTT Fibrinogen Puncture Site Patient Temperature HCO3 Base Excess O2 Saturation ABG pH ABG pCO2 ABG pO2 ABG HCO3 ABG O2 Content ABG Base Excess ABG Carboxyhemoglobin ABG Methemoglobin Stepan Test Hemoglobin Carboxyhemoglobin O2 Delivery Device Liter Flow Vent Setting Inspired O2 Critical Value Sodium 136 Potassium 5.2 H Chloride 102 Carbon Dioxide 21.7 Anion Gap 12 BUN 70 H D Creatinine 2.37 H Estimated GFR 27 L POC Glucose Random Glucose 232 H Hemoglobin A1c Lactic Acid 1.3 Calcium 8.1 L Prot Corrected Calcium Phosphorus Magnesium Total Bilirubin Direct Bilirubin Indirect Bilirubin AST ALT Alkaline Phosphatase Ammonia Total Creatine Kinase Troponin I C-Reactive Protein B-Natriuretic Peptide Total Protein Albumin Prealbumin Triglycerides Cholesterol LDL Cholesterol HDL Cholesterol Cholesterol/HDL Ratio Thiamine Vitamin B12 Procalcitonin Free T4 TSH 3rd Generation Urine Color Urine Clarity Urine Turbidity Urine pH Ur Specific [place] Urine Protein Urine Glucose (UA) Urine Ketones Urine Occult Blood Urine Nitrate Urine Nitrite Urine Bilirubin Urine Urobilinogen Ur Leukocyte Esterase Urine RBC Urine WBC Urine WBC Clumps Ur Squamous Epith Cells Ur Transition Epith Cell Ur Renal Epithelial Cell Amorphous Sediment Urine Bacteria Hyaline Casts Granular Casts Urine Mucus Micro UA Comment Urine Culture Comments Urine Eosinophils Urine Osmolality Ur Random Creatinine Ur Random Sodium Pleural pH Pleural WBC Pleural Nuc Cells Pleural RBC Pleural Neutrophils Pleural Eosinophils Pleural Lymphocytes Pleural Monocytes Pleural Histocytes Pleural Mesothelial Pleural Total Protein Pleural Amylase Pleural LDH Pleural Glucose Nasal Screen MRSA (PCR) Stl C.difficile Tox PCR St C. diff Tox Epid 027 Vancomycin Trough Random Vancomycin Phenytoin Free Phenytoin LOWELL Screen RPR Blood Type Antibody Screen MTS Gel Crossmatch Blood Bank Comment 10/25/17 10/25/17 10/25/17 07:19 14:38 14:57 WBC RBC Hgb Hct MCV MCH MCHC RDW Plt Count MPV Prelim Diff (Auto) Neut % (Auto) Lymph % (Auto) [place] % (Auto) Eos % (Auto) Baso % (Auto) Neut # (Auto) Lymph # (Auto) [place] # (Auto) Eos # (Auto) Baso # (Auto) CBC Comment WBC Differential Total Counted Neutrophils % (Manual) Seg Neuts % (Manual) Band Neutrophils % Band Neuts % (Manual) Lymphocytes % Lymphocytes % (Manual) Monocytes % Monocytes % (Manual) Eosinophils % Eosinophils % (Manual) Basophils % Metamyelocytes % (Man) Neutrophils # (Manual) Abs Neuts (Manual) Metamyelocytes Myelocytes Nucleated RBCs Differential Comment Smudge Cells Toxic Granulation Toxic Vacuolation Dohle Bodies Platelet Estimate Platelet Morphology Plt Morphology Comment Basophilic Stippling Spherocytes Tear Drop Cells Ovalocytes Acanthocytes (Spur) RBC Morph Comment ESR Hematology Comments PT INR APTT Fibrinogen Puncture Site LT RADIAL Patient Temperature 98.6 HCO3 21 L Base Excess -3.2 L O2 Saturation 84 L* ABG pH 7.43 H ABG pCO2 32 L ABG pO2 52 L* ABG HCO3 ABG O2 Content 13.0 ABG Base Excess ABG Carboxyhemoglobin 1.4 ABG Methemoglobin 1.5 Stepan Test Hemoglobin 10.9 L Carboxyhemoglobin O2 Delivery Device Liter Flow Vent Setting Inspired O2 21 Critical Value Sodium Potassium Chloride Carbon Dioxide Anion Gap BUN Creatinine Estimated GFR POC Glucose Random Glucose Hemoglobin A1c Lactic Acid Calcium Prot Corrected Calcium Phosphorus Magnesium Total Bilirubin Direct Bilirubin Indirect Bilirubin AST ALT Alkaline Phosphatase Ammonia Total Creatine Kinase Troponin I 0.25 H 0.24 H C-Reactive Protein B-Natriuretic Peptide Total Protein Albumin Prealbumin Triglycerides Cholesterol LDL Cholesterol HDL Cholesterol Cholesterol/HDL Ratio Thiamine Vitamin B12 Procalcitonin Free T4 TSH 3rd Generation Urine Color Urine Clarity Urine Turbidity Urine pH Ur Specific [place] Urine Protein Urine Glucose (UA) Urine Ketones Urine Occult Blood Urine Nitrate Urine Nitrite Urine Bilirubin Urine Urobilinogen Ur Leukocyte Esterase Urine RBC Urine WBC Urine WBC Clumps Ur Squamous Epith Cells Ur Transition Epith Cell Ur Renal Epithelial Cell Amorphous Sediment Urine Bacteria Hyaline Casts Granular Casts Urine Mucus Micro UA Comment Urine Culture Comments Urine Eosinophils Urine Osmolality Ur Random Creatinine Ur Random Sodium Pleural pH Pleural WBC Pleural Nuc Cells Pleural RBC Pleural Neutrophils Pleural Eosinophils Pleural Lymphocytes Pleural Monocytes Pleural Histocytes Pleural Mesothelial Pleural Total Protein Pleural Amylase Pleural LDH Pleural Glucose Nasal Screen MRSA (PCR) Stl C.difficile Tox PCR St C. diff Tox Epid 027 Vancomycin Trough Random Vancomycin Phenytoin Free Phenytoin LOWELL Screen RPR Blood Type Antibody Screen MTS Gel Crossmatch Blood Bank Comment 10/25/17 10/25/17 10/25/17 14:57 14:57 14:57 WBC 42.5 H D RBC 3.78 L Hgb 10.7 L Hct 33.5 L MCV 88.7 MCH 28.4 MCHC 32.0 RDW 15.2 Plt Count 153 MPV 10.0 Prelim Diff (Auto) Neut % (Auto) 96.3 H Lymph % (Auto) 0.8 L [place] % (Auto) 2.7 Eos % (Auto) 0.0 Baso % (Auto) 0.2 Neut # (Auto) 40.9 H Lymph # (Auto) 0.3 L [place] # (Auto) 1.2 H Eos # (Auto) 0.0 Baso # (Auto) 0.1 CBC Comment AUTO DIFF WBC Differential Total Counted 100 Neutrophils % (Manual) 52 Seg Neuts % (Manual) Band Neutrophils % 41 H Band Neuts % (Manual) Lymphocytes % Lymphocytes % (Manual) Monocytes % 2 Monocytes % (Manual) Eosinophils % Eosinophils % (Manual) Basophils % Metamyelocytes % (Man) Neutrophils # (Manual) 41.7 H Abs Neuts (Manual) Metamyelocytes 5 H Myelocytes Nucleated RBCs Differential Comment FINAL DIFF MANUAL Smudge Cells Toxic Granulation Toxic Vacuolation Dohle Bodies Platelet Estimate NORMAL Platelet Morphology Plt Morphology Comment NORMAL Basophilic Stippling Spherocytes Tear Drop Cells Ovalocytes Acanthocytes (Spur) RBC Morph Comment ESR Hematology Comments PT INR APTT Fibrinogen Puncture Site Patient Temperature HCO3 Base Excess O2 Saturation ABG pH ABG pCO2 ABG pO2 ABG HCO3 ABG O2 Content ABG Base Excess ABG Carboxyhemoglobin ABG Methemoglobin Stepan Test Hemoglobin Carboxyhemoglobin O2 Delivery Device Liter Flow Vent Setting Inspired O2 Critical Value Sodium 134 L Potassium 5.7 H Chloride 98 Carbon Dioxide 21.0 Anion Gap 15 BUN 75 H Creatinine 2.79 H Estimated GFR 22 L POC Glucose Random Glucose 363 H D Hemoglobin A1c Lactic Acid 2.1 H Calcium 7.8 L Prot Corrected Calcium Phosphorus Magnesium Total Bilirubin 0.7 Direct Bilirubin Indirect Bilirubin AST 12 L ALT 16 Alkaline Phosphatase 149 H Ammonia Total Creatine Kinase Troponin I C-Reactive Protein B-Natriuretic Peptide Total Protein 5.9 L Albumin 2.0 L Prealbumin Triglycerides Cholesterol LDL Cholesterol HDL Cholesterol Cholesterol/HDL Ratio Thiamine Vitamin B12 Procalcitonin Free T4 TSH 3rd Generation Urine Color Urine Clarity Urine Turbidity Urine pH Ur Specific [place] Urine Protein Urine Glucose (UA) Urine Ketones Urine Occult Blood Urine Nitrate Urine Nitrite Urine Bilirubin Urine Urobilinogen Ur Leukocyte Esterase Urine RBC Urine WBC Urine WBC Clumps Ur Squamous Epith Cells Ur Transition Epith Cell Ur Renal Epithelial Cell Amorphous Sediment Urine Bacteria Hyaline Casts Granular Casts Urine Mucus Micro UA Comment Urine Culture Comments Urine Eosinophils Urine Osmolality Ur Random Creatinine Ur Random Sodium Pleural pH Pleural WBC Pleural Nuc Cells Pleural RBC Pleural Neutrophils Pleural Eosinophils Pleural Lymphocytes Pleural Monocytes Pleural Histocytes Pleural Mesothelial Pleural Total Protein Pleural Amylase Pleural LDH Pleural Glucose Nasal Screen MRSA (PCR) Stl C.difficile Tox PCR St C. diff Tox Epid 027 Vancomycin Trough Random Vancomycin Phenytoin Free Phenytoin LOWELL Screen RPR Blood Type Antibody Screen MTS Gel Crossmatch Blood Bank Comment 10/25/17 10/26/17 10/26/17 20:39 04:32 04:32 WBC RBC Hgb Hct MCV MCH MCHC RDW Plt Count MPV Prelim Diff (Auto) Neut % (Auto) Lymph % (Auto) [place] % (Auto) Eos % (Auto) Baso % (Auto) Neut # (Auto) Lymph # (Auto) [place] # (Auto) Eos # (Auto) Baso # (Auto) CBC Comment WBC Differential Total Counted Neutrophils % (Manual) Seg Neuts % (Manual) Band Neutrophils % Band Neuts % (Manual) Lymphocytes % Lymphocytes % (Manual) Monocytes % Monocytes % (Manual) Eosinophils % Eosinophils % (Manual) Basophils % Metamyelocytes % (Man) Neutrophils # (Manual) Abs Neuts (Manual) Metamyelocytes Myelocytes Nucleated RBCs Differential Comment Smudge Cells Toxic Granulation Toxic Vacuolation Dohle Bodies Platelet Estimate Platelet Morphology Plt Morphology Comment Basophilic Stippling Spherocytes Tear Drop Cells Ovalocytes Acanthocytes (Spur) RBC Morph Comment ESR Hematology Comments PT INR APTT Fibrinogen Puncture Site Patient Temperature HCO3 Base Excess O2 Saturation ABG pH ABG pCO2 ABG pO2 ABG HCO3 ABG O2 Content ABG Base Excess ABG Carboxyhemoglobin ABG Methemoglobin Stepan Test Hemoglobin Carboxyhemoglobin O2 Delivery Device Liter Flow Vent Setting Inspired O2 Critical Value Sodium 136 Potassium 5.0 Chloride 105 Carbon Dioxide 18.4 L Anion Gap 13 BUN 79 H Creatinine 2.55 H Estimated GFR 25 L POC Glucose Random Glucose 284 H Hemoglobin A1c Lactic Acid Calcium 7.9 L Prot Corrected Calcium Phosphorus Magnesium Total Bilirubin Direct Bilirubin Indirect Bilirubin AST ALT Alkaline Phosphatase Ammonia Total Creatine Kinase Troponin I 0.20 H C-Reactive Protein B-Natriuretic Peptide Total Protein Albumin Prealbumin Triglycerides Cholesterol LDL Cholesterol HDL Cholesterol Cholesterol/HDL Ratio Thiamine Vitamin B12 Procalcitonin Free T4 TSH 3rd Generation Urine Color Urine Clarity Urine Turbidity Urine pH Ur Specific [place] Urine Protein Urine Glucose (UA) Urine Ketones Urine Occult Blood Urine Nitrate Urine Nitrite Urine Bilirubin Urine Urobilinogen Ur Leukocyte Esterase Urine RBC Urine WBC Urine WBC Clumps Ur Squamous Epith Cells Ur Transition Epith Cell Ur Renal Epithelial Cell Amorphous Sediment Urine Bacteria Hyaline Casts Granular Casts Urine Mucus Micro UA Comment Urine Culture Comments Urine Eosinophils Urine Osmolality Ur Random Creatinine Ur Random Sodium Pleural pH Pleural WBC Pleural Nuc Cells Pleural RBC Pleural Neutrophils Pleural Eosinophils Pleural Lymphocytes Pleural Monocytes Pleural Histocytes Pleural Mesothelial Pleural Total Protein Pleural Amylase Pleural LDH Pleural Glucose Nasal Screen MRSA (PCR) Stl C.difficile Tox PCR St C. diff Tox Epid 027 Vancomycin Trough Random Vancomycin 14.8 Phenytoin Free Phenytoin LOWELL Screen RPR Blood Type Antibody Screen MTS Gel Crossmatch Blood Bank Comment 10/26/17 10/26/17 10/27/17 09:21 09:21 03:50 WBC 40.6 H RBC 4.11 L Hgb 11.8 L Hct 36.0 L MCV 87.6 MCH 28.7 MCHC 32.8 RDW 15.6 Plt Count 121 L MPV 10.0 Prelim Diff (Auto) Neut % (Auto) 94.2 H Lymph % (Auto) 1.5 L [place] % (Auto) 3.4 Eos % (Auto) 0.9 Baso % (Auto) 0.0 Neut # (Auto) 38.2 H Lymph # (Auto) 0.6 L [place] # (Auto) 1.4 H Eos # (Auto) 0.4 Baso # (Auto) 0.0 CBC Comment AUTO DIFF WBC Differential Total Counted 100 Neutrophils % (Manual) 70 Seg Neuts % (Manual) Band Neutrophils % 28 H Band Neuts % (Manual) Lymphocytes % 1 L Lymphocytes % (Manual) Monocytes % 1 Monocytes % (Manual) Eosinophils % Eosinophils % (Manual) Basophils % Metamyelocytes % (Man) Neutrophils # (Manual) 39.8 H Abs Neuts (Manual) Metamyelocytes Myelocytes Nucleated RBCs Differential Comment FINAL DIFF MANUAL Smudge Cells Toxic Granulation Toxic Vacuolation PRESENT H Dohle Bodies PRESENT H Platelet Estimate LOW L Platelet Morphology Plt Morphology Comment NORMAL Basophilic Stippling Spherocytes Tear Drop Cells Ovalocytes Acanthocytes (Spur) RBC Morph Comment ESR Hematology Comments PT INR APTT Fibrinogen Puncture Site Patient Temperature HCO3 Base Excess O2 Saturation ABG pH ABG pCO2 ABG pO2 ABG HCO3 ABG O2 Content ABG Base Excess ABG Carboxyhemoglobin ABG Methemoglobin Stepan Test Hemoglobin Carboxyhemoglobin O2 Delivery Device Liter Flow Vent Setting Inspired O2 Critical Value Sodium 134 L Potassium 4.8 Chloride 104 Carbon Dioxide 20.7 L Anion Gap 9 BUN 74 H Creatinine 2.25 H Estimated GFR 28 L POC Glucose Random Glucose 292 H Hemoglobin A1c Lactic Acid 1.5 Calcium 7.9 L Prot Corrected Calcium Phosphorus Magnesium Total Bilirubin Direct Bilirubin Indirect Bilirubin AST ALT Alkaline Phosphatase Ammonia Total Creatine Kinase Troponin I C-Reactive Protein B-Natriuretic Peptide Total Protein Albumin Prealbumin Triglycerides Cholesterol LDL Cholesterol HDL Cholesterol Cholesterol/HDL Ratio Thiamine Vitamin B12 Procalcitonin Free T4 TSH 3rd Generation Urine Color Urine Clarity Urine Turbidity Urine pH Ur Specific [place] Urine Protein Urine Glucose (UA) Urine Ketones Urine Occult Blood Urine Nitrate Urine Nitrite Urine Bilirubin Urine Urobilinogen Ur Leukocyte Esterase Urine RBC Urine WBC Urine WBC Clumps Ur Squamous Epith Cells Ur Transition Epith Cell Ur Renal Epithelial Cell Amorphous Sediment Urine Bacteria Hyaline Casts Granular Casts Urine Mucus Micro UA Comment Urine Culture Comments Urine Eosinophils Urine Osmolality Ur Random Creatinine Ur Random Sodium Pleural pH Pleural WBC Pleural Nuc Cells Pleural RBC Pleural Neutrophils Pleural Eosinophils Pleural Lymphocytes Pleural Monocytes Pleural Histocytes Pleural Mesothelial Pleural Total Protein Pleural Amylase Pleural LDH Pleural Glucose Nasal Screen MRSA (PCR) Stl C.difficile Tox PCR St C. diff Tox Epid 027 Vancomycin Trough Random Vancomycin 22.9 Phenytoin Free Phenytoin LOWELL Screen RPR Blood Type Antibody Screen MTS Gel Crossmatch Blood Bank Comment 10/27/17 10/28/17 10/28/17 03:50 06:50 06:50 WBC 25.6 H 17.8 H RBC 3.92 L 3.85 L Hgb 11.4 L 11.1 L Hct 34.4 L 33.8 L MCV 87.8 87.7 MCH 29.2 28.9 MCHC 33.2 33.0 RDW 15.5 15.2 Plt Count 103 L 120 L MPV 10.4 10.1 Prelim Diff (Auto) Neut % (Auto) 95.8 H Lymph % (Auto) 1.3 L [place] % (Auto) 2.9 Eos % (Auto) 0.0 Baso % (Auto) 0.0 Neut # (Auto) 24.6 H Lymph # (Auto) 0.3 L [place] # (Auto) 0.8 Eos # (Auto) 0.0 Baso # (Auto) 0.0 CBC Comment DIFF FINAL AUTO DIFF WBC Differential Total Counted 100 Neutrophils % (Manual) 91 H Seg Neuts % (Manual) Band Neutrophils % 7 H Band Neuts % (Manual) Lymphocytes % Lymphocytes % (Manual) Monocytes % 1 Monocytes % (Manual) Eosinophils % Eosinophils % (Manual) Basophils % Metamyelocytes % (Man) Neutrophils # (Manual) 17.6 H Abs Neuts (Manual) Metamyelocytes Myelocytes 1 H Nucleated RBCs Differential Comment FINAL DIFF MANUAL Smudge Cells Toxic Granulation Toxic Vacuolation Dohle Bodies Platelet Estimate LOW L Platelet Morphology Plt Morphology Comment NORMAL Basophilic Stippling Spherocytes Tear Drop Cells Ovalocytes Acanthocytes (Spur) RBC Morph Comment NORMAL ESR 52 H Hematology Comments PT INR APTT Fibrinogen Puncture Site Patient Temperature HCO3 Base Excess O2 Saturation ABG pH ABG pCO2 ABG pO2 ABG HCO3 ABG O2 Content ABG Base Excess ABG Carboxyhemoglobin ABG Methemoglobin Stepan Test Hemoglobin Carboxyhemoglobin O2 Delivery Device Liter Flow Vent Setting Inspired O2 Critical Value Sodium 136 Potassium 5.0 Chloride 105 Carbon Dioxide 18.4 L Anion Gap 13 BUN 72 H Creatinine 1.90 H Estimated GFR 34 L POC Glucose Random Glucose 258 H Hemoglobin A1c Lactic Acid Calcium 8.1 L Prot Corrected Calcium Phosphorus Magnesium Total Bilirubin Direct Bilirubin Indirect Bilirubin AST ALT Alkaline Phosphatase Ammonia Total Creatine Kinase Troponin I C-Reactive Protein B-Natriuretic Peptide Total Protein Albumin Prealbumin Triglycerides Cholesterol LDL Cholesterol HDL Cholesterol Cholesterol/HDL Ratio Thiamine Vitamin B12 Procalcitonin Free T4 TSH 3rd Generation Urine Color Urine Clarity Urine Turbidity Urine pH Ur Specific [place] Urine Protein Urine Glucose (UA) Urine Ketones Urine Occult Blood Urine Nitrate Urine Nitrite Urine Bilirubin Urine Urobilinogen Ur Leukocyte Esterase Urine RBC Urine WBC Urine WBC Clumps Ur Squamous Epith Cells Ur Transition Epith Cell Ur Renal Epithelial Cell Amorphous Sediment Urine Bacteria Hyaline Casts Granular Casts Urine Mucus Micro UA Comment Urine Culture Comments Urine Eosinophils Urine Osmolality Ur Random Creatinine Ur Random Sodium Pleural pH Pleural WBC Pleural Nuc Cells Pleural RBC Pleural Neutrophils Pleural Eosinophils Pleural Lymphocytes Pleural Monocytes Pleural Histocytes Pleural Mesothelial Pleural Total Protein Pleural Amylase Pleural LDH Pleural Glucose Nasal Screen MRSA (PCR) Stl C.difficile Tox PCR St C. diff Tox Epid 027 Vancomycin Trough Random Vancomycin 16.2 Phenytoin Free Phenytoin LOWELL Screen RPR Blood Type Antibody Screen MTS Gel Crossmatch Blood Bank Comment 10/29/17 10/30/17 10/30/17 06:06 03:50 04:40 WBC RBC Hgb Hct MCV MCH MCHC RDW Plt Count MPV Prelim Diff (Auto) Neut % (Auto) Lymph % (Auto) [place] % (Auto) Eos % (Auto) Baso % (Auto) Neut # (Auto) Lymph # (Auto) [place] # (Auto) Eos # (Auto) Baso # (Auto) CBC Comment WBC Differential Total Counted Neutrophils % (Manual) Seg Neuts % (Manual) Band Neutrophils % Band Neuts % (Manual) Lymphocytes % Lymphocytes % (Manual) Monocytes % Monocytes % (Manual) Eosinophils % Eosinophils % (Manual) Basophils % Metamyelocytes % (Man) Neutrophils # (Manual) Abs Neuts (Manual) Metamyelocytes Myelocytes Nucleated RBCs Differential Comment Smudge Cells Toxic Granulation Toxic Vacuolation Dohle Bodies Platelet Estimate Platelet Morphology Plt Morphology Comment Basophilic Stippling Spherocytes Tear Drop Cells Ovalocytes Acanthocytes (Spur) RBC Morph Comment ESR Hematology Comments PT INR APTT Fibrinogen Puncture Site Patient Temperature HCO3 Base Excess O2 Saturation ABG pH ABG pCO2 ABG pO2 ABG HCO3 ABG O2 Content ABG Base Excess ABG Carboxyhemoglobin ABG Methemoglobin Stepan Test Hemoglobin Carboxyhemoglobin O2 Delivery Device Liter Flow Vent Setting Inspired O2 Critical Value Sodium 134 L Potassium 4.9 Chloride 103 Carbon Dioxide 17.4 L Anion Gap 14 BUN 61 H D Creatinine 1.87 H Estimated GFR 35 L POC Glucose Random Glucose 311 H Hemoglobin A1c Lactic Acid Calcium 8.0 L Prot Corrected Calcium Phosphorus Magnesium Total Bilirubin Direct Bilirubin Indirect Bilirubin AST ALT Alkaline Phosphatase Ammonia Total Creatine Kinase Troponin I C-Reactive Protein B-Natriuretic Peptide Total Protein Albumin Prealbumin Triglycerides Cholesterol LDL Cholesterol HDL Cholesterol Cholesterol/HDL Ratio Thiamine Vitamin B12 Procalcitonin Free T4 TSH 3rd Generation Urine Color YELLOW Urine Clarity Urine Turbidity CLEAR Urine pH 5.5 Ur Specific [place] 1.014 Urine Protein 100 H Urine Glucose (UA) 250 H Urine Ketones NEG Urine Occult Blood TRACE H Urine Nitrate Urine Nitrite POS Urine Bilirubin NEG Urine Urobilinogen 0.2 Ur Leukocyte Esterase TRACE Urine RBC 3 Urine WBC 17 H Urine WBC Clumps Ur Squamous Epith Cells <1 Ur Transition Epith Cell Ur Renal Epithelial Cell Amorphous Sediment Urine Bacteria OCC H Hyaline Casts Granular Casts Urine Mucus FEW H Micro UA Comment CULTURE INDICATED Urine Culture Comments Urine Eosinophils Urine Osmolality Ur Random Creatinine Ur Random Sodium Pleural pH Pleural WBC Pleural Nuc Cells Pleural RBC Pleural Neutrophils Pleural Eosinophils Pleural Lymphocytes Pleural Monocytes Pleural Histocytes Pleural Mesothelial Pleural Total Protein Pleural Amylase Pleural LDH Pleural Glucose Nasal Screen MRSA (PCR) Stl C.difficile Tox PCR NEGATIVE St C. diff Tox Epid 027 PRESUMPTIVE NEGATIVE Vancomycin Trough Random Vancomycin Phenytoin Free Phenytoin LOWELL Screen RPR Blood Type Antibody Screen MTS Gel Crossmatch Blood Bank Comment 10/30/17 10/30/17 10/30/17 07:21 07:21 16:47 WBC 8.5 RBC 3.80 L Hgb 11.0 L Hct 33.1 L MCV 87.3 MCH 29.1 MCHC 33.3 RDW 15.0 Plt Count 131 L MPV 10.1 Prelim Diff (Auto) Neut % (Auto) 87.8 H Lymph % (Auto) 5.4 L [place] % (Auto) 6.7 Eos % (Auto) 0.0 Baso % (Auto) 0.1 Neut # (Auto) 7.5 Lymph # (Auto) 0.5 L [place] # (Auto) 0.6 Eos # (Auto) 0.0 Baso # (Auto) 0.0 CBC Comment DIFF FINAL WBC Differential Total Counted Neutrophils % (Manual) Seg Neuts % (Manual) Band Neutrophils % Band Neuts % (Manual) Lymphocytes % Lymphocytes % (Manual) Monocytes % Monocytes % (Manual) Eosinophils % Eosinophils % (Manual) Basophils % Metamyelocytes % (Man) Neutrophils # (Manual) Abs Neuts (Manual) Metamyelocytes Myelocytes Nucleated RBCs Differential Comment Smudge Cells Toxic Granulation Toxic Vacuolation Dohle Bodies Platelet Estimate Platelet Morphology Plt Morphology Comment Basophilic Stippling Spherocytes Tear Drop Cells Ovalocytes Acanthocytes (Spur) RBC Morph Comment ESR Hematology Comments PT INR APTT Fibrinogen Puncture Site Patient Temperature HCO3 Base Excess O2 Saturation ABG pH ABG pCO2 ABG pO2 ABG HCO3 ABG O2 Content ABG Base Excess ABG Carboxyhemoglobin ABG Methemoglobin Stepan Test Hemoglobin Carboxyhemoglobin O2 Delivery Device Liter Flow Vent Setting Inspired O2 Critical Value Sodium 136 136 Potassium 4.7 4.9 Chloride 107 106 Carbon Dioxide 18.2 L 20.4 L Anion Gap 11 10 BUN 54 H 53 H Creatinine 1.70 H 1.73 H Estimated GFR 39 L 38 L POC Glucose Random Glucose 294 H 321 H Hemoglobin A1c Lactic Acid Calcium 7.7 L 7.8 L Prot Corrected Calcium Phosphorus Magnesium Total Bilirubin Direct Bilirubin Indirect Bilirubin AST ALT Alkaline Phosphatase Ammonia Total Creatine Kinase Troponin I C-Reactive Protein B-Natriuretic Peptide Total Protein Albumin Prealbumin Triglycerides Cholesterol LDL Cholesterol HDL Cholesterol Cholesterol/HDL Ratio Thiamine Vitamin B12 Procalcitonin Free T4 TSH 3rd Generation Urine Color Urine Clarity Urine Turbidity Urine pH Ur Specific [place] Urine Protein Urine Glucose (UA) Urine Ketones Urine Occult Blood Urine Nitrate Urine Nitrite Urine Bilirubin Urine Urobilinogen Ur Leukocyte Esterase Urine RBC Urine WBC Urine WBC Clumps Ur Squamous Epith Cells Ur Transition Epith Cell Ur Renal Epithelial Cell Amorphous Sediment Urine Bacteria Hyaline Casts Granular Casts Urine Mucus Micro UA Comment Urine Culture Comments Urine Eosinophils Urine Osmolality Ur Random Creatinine Ur Random Sodium Pleural pH Pleural WBC Pleural Nuc Cells Pleural RBC Pleural Neutrophils Pleural Eosinophils Pleural Lymphocytes Pleural Monocytes Pleural Histocytes Pleural Mesothelial Pleural Total Protein Pleural Amylase Pleural LDH Pleural Glucose Nasal Screen MRSA (PCR) Stl C.difficile Tox PCR St C. diff Tox Epid 027 Vancomycin Trough Random Vancomycin Phenytoin Free Phenytoin LOWELL Screen RPR Blood Type Antibody Screen MTS Gel Crossmatch Blood Bank Comment 05/11/1211/01/17 11/01/17 16:47 03:44 03:44 WBC 8.6 11.4 H RBC 3.80 L 4.01 L Hgb 11.1 L 11.7 L Hct 33.4 L 34.5 L MCV 88.0 85.9 MCH 29.2 29.2 MCHC 33.2 34.0 RDW 15.4 14.7 Plt Count 149 L 186 MPV 9.8 9.3 Prelim Diff (Auto) Neut % (Auto) 95.6 H Lymph % (Auto) 3.6 L [place] % (Auto) 0.1 Eos % (Auto) 0.6 Baso % (Auto) 0.1 Neut # (Auto) 10.9 H Lymph # (Auto) 0.4 L [place] # (Auto) 0.0 Eos # (Auto) 0.1 Baso # (Auto) 0.0 CBC Comment AUTO DIFF DIFF FINAL WBC Differential Total Counted 100 Neutrophils % (Manual) 89 H Seg Neuts % (Manual) Band Neutrophils % 1 Band Neuts % (Manual) Lymphocytes % 5 L Lymphocytes % (Manual) Monocytes % 5 Monocytes % (Manual) Eosinophils % Eosinophils % (Manual) Basophils % Metamyelocytes % (Man) Neutrophils # (Manual) 7.7 Abs Neuts (Manual) Metamyelocytes Myelocytes Nucleated RBCs Differential Comment FINAL DIFF MANUAL Smudge Cells Toxic Granulation Toxic Vacuolation Dohle Bodies Platelet Estimate LOW L Platelet Morphology Plt Morphology Comment NORMAL Basophilic Stippling Spherocytes Tear Drop Cells Ovalocytes Acanthocytes (Spur) RBC Morph Comment ESR Hematology Comments PT INR APTT Fibrinogen Puncture Site Patient Temperature HCO3 Base Excess O2 Saturation ABG pH ABG pCO2 ABG pO2 ABG HCO3 ABG O2 Content ABG Base Excess ABG Carboxyhemoglobin ABG Methemoglobin Stepan Test Hemoglobin Carboxyhemoglobin O2 Delivery Device Liter Flow Vent Setting Inspired O2 Critical Value Sodium 138 Potassium 4.2 Chloride 105 Carbon Dioxide 23.2 Anion Gap 10 BUN 45 H Creatinine 1.44 H Estimated GFR 47 L POC Glucose Random Glucose 256 H Hemoglobin A1c Lactic Acid Calcium 8.0 L Prot Corrected Calcium Phosphorus Magnesium 2.0 Total Bilirubin Direct Bilirubin Indirect Bilirubin AST ALT Alkaline Phosphatase Ammonia Total Creatine Kinase 52 Troponin I 0.14 H C-Reactive Protein B-Natriuretic Peptide Total Protein Albumin Prealbumin Triglycerides Cholesterol LDL Cholesterol HDL Cholesterol Cholesterol/HDL Ratio Thiamine Vitamin B12 Procalcitonin Free T4 TSH 3rd Generation Urine Color Urine Clarity Urine Turbidity Urine pH Ur Specific [place] Urine Protein Urine Glucose (UA) Urine Ketones Urine Occult Blood Urine Nitrate Urine Nitrite Urine Bilirubin Urine Urobilinogen Ur Leukocyte Esterase Urine RBC Urine WBC Urine WBC Clumps Ur Squamous Epith Cells Ur Transition Epith Cell Ur Renal Epithelial Cell Amorphous Sediment Urine Bacteria Hyaline Casts Granular Casts Urine Mucus Micro UA Comment Urine Culture Comments Urine Eosinophils Urine Osmolality Ur Random Creatinine Ur Random Sodium Pleural pH Pleural WBC Pleural Nuc Cells Pleural RBC Pleural Neutrophils Pleural Eosinophils Pleural Lymphocytes Pleural Monocytes Pleural Histocytes Pleural Mesothelial Pleural Total Protein Pleural Amylase Pleural LDH Pleural Glucose Nasal Screen MRSA (PCR) Stl C.difficile Tox PCR St C. diff Tox Epid 027 Vancomycin Trough Random Vancomycin Phenytoin Free Phenytoin LOWELL Screen RPR Blood Type Antibody Screen MTS Gel Crossmatch Blood Bank Comment 11/02/17 11/03/17 11/04/17 06:51 08:29 04:10 WBC 12.3 H 10.5 RBC 4.04 L 3.45 L Hgb 11.6 L 10.1 L Hct 35.6 L 30.5 L MCV 88.0 88.4 MCH 28.6 29.3 MCHC 32.5 33.1 RDW 15.2 15.1 Plt Count 240 247 MPV 9.3 9.3 Prelim Diff (Auto) Neut % (Auto) 93.6 H Lymph % (Auto) 3.0 L [place] % (Auto) 3.4 Eos % (Auto) 0.0 Baso % (Auto) 0.0 Neut # (Auto) 9.8 H Lymph # (Auto) 0.3 L [place] # (Auto) 0.4 Eos # (Auto) 0.0 Baso # (Auto) 0.0 CBC Comment DIFF FINAL WBC Differential Total Counted Neutrophils % (Manual) Seg Neuts % (Manual) Band Neutrophils % Band Neuts % (Manual) Lymphocytes % Lymphocytes % (Manual) Monocytes % Monocytes % (Manual) Eosinophils % Eosinophils % (Manual) Basophils % Metamyelocytes % (Man) Neutrophils # (Manual) Abs Neuts (Manual) Metamyelocytes Myelocytes Nucleated RBCs Differential Comment Smudge Cells Toxic Granulation Toxic Vacuolation Dohle Bodies Platelet Estimate Platelet Morphology Plt Morphology Comment Basophilic Stippling Spherocytes Tear Drop Cells Ovalocytes Acanthocytes (Spur) RBC Morph Comment ESR Hematology Comments PT INR APTT Fibrinogen Puncture Site Patient Temperature HCO3 Base Excess O2 Saturation ABG pH ABG pCO2 ABG pO2 ABG HCO3 ABG O2 Content ABG Base Excess ABG Carboxyhemoglobin ABG Methemoglobin Stepan Test Hemoglobin Carboxyhemoglobin O2 Delivery Device Liter Flow Vent Setting Inspired O2 Critical Value Sodium Potassium Chloride Carbon Dioxide Anion Gap BUN Creatinine Estimated GFR POC Glucose Random Glucose Hemoglobin A1c 9.6 H Lactic Acid Calcium Prot Corrected Calcium Phosphorus Magnesium Total Bilirubin Direct Bilirubin Indirect Bilirubin AST ALT Alkaline Phosphatase Ammonia Total Creatine Kinase Troponin I C-Reactive Protein B-Natriuretic Peptide Total Protein Albumin Prealbumin Triglycerides Cholesterol LDL Cholesterol HDL Cholesterol Cholesterol/HDL Ratio Thiamine Vitamin B12 Procalcitonin Free T4 TSH 3rd Generation Urine Color Urine Clarity Urine Turbidity Urine pH Ur Specific [place] Urine Protein Urine Glucose (UA) Urine Ketones Urine Occult Blood Urine Nitrate Urine Nitrite Urine Bilirubin Urine Urobilinogen Ur Leukocyte Esterase Urine RBC Urine WBC Urine WBC Clumps Ur Squamous Epith Cells Ur Transition Epith Cell Ur Renal Epithelial Cell Amorphous Sediment Urine Bacteria Hyaline Casts Granular Casts Urine Mucus Micro UA Comment Urine Culture Comments Urine Eosinophils Urine Osmolality Ur Random Creatinine Ur Random Sodium Pleural pH Pleural WBC Pleural Nuc Cells Pleural RBC Pleural Neutrophils Pleural Eosinophils Pleural Lymphocytes Pleural Monocytes Pleural Histocytes Pleural Mesothelial Pleural Total Protein Pleural Amylase Pleural LDH Pleural Glucose Nasal Screen MRSA (PCR) Stl C.difficile Tox PCR St C. diff Tox Epid 027 Vancomycin Trough Random Vancomycin Phenytoin Free Phenytoin LOWELL Screen RPR Blood Type Antibody Screen MTS Gel Crossmatch Blood Bank Comment 11/04/17 11/05/17 11/08/17 04:18 06:25 06:27 WBC 8.9 RBC 3.76 L Hgb 10.9 L Hct 33.2 L MCV 88.5 MCH 28.9 MCHC 32.7 RDW 15.1 Plt Count 252 MPV 9.2 Prelim Diff (Auto) Neut % (Auto) Lymph % (Auto) [place] % (Auto) Eos % (Auto) Baso % (Auto) Neut # (Auto) Lymph # (Auto) [place] # (Auto) Eos # (Auto) Baso # (Auto) CBC Comment WBC Differential Total Counted Neutrophils % (Manual) Seg Neuts % (Manual) Band Neutrophils % Band Neuts % (Manual) Lymphocytes % Lymphocytes % (Manual) Monocytes % Monocytes % (Manual) Eosinophils % Eosinophils % (Manual) Basophils % Metamyelocytes % (Man) Neutrophils # (Manual) Abs Neuts (Manual) Metamyelocytes Myelocytes Nucleated RBCs Differential Comment Smudge Cells Toxic Granulation Toxic Vacuolation Dohle Bodies Platelet Estimate Platelet Morphology Plt Morphology Comment Basophilic Stippling Spherocytes Tear Drop Cells Ovalocytes Acanthocytes (Spur) RBC Morph Comment ESR Hematology Comments PT INR APTT Fibrinogen Puncture Site Patient Temperature HCO3 Base Excess O2 Saturation ABG pH ABG pCO2 ABG pO2 ABG HCO3 ABG O2 Content ABG Base Excess ABG Carboxyhemoglobin ABG Methemoglobin Stepan Test Hemoglobin Carboxyhemoglobin O2 Delivery Device Liter Flow Vent Setting Inspired O2 Critical Value Sodium 138 135 L Potassium 4.5 4.1 Chloride 105 102 Carbon Dioxide 24.5 23.6 Anion Gap 9 9 BUN 33 H D 19 H D Creatinine 1.29 1.15 Estimated GFR 54 L 62 L POC Glucose Random Glucose 204 H 234 H Hemoglobin A1c Lactic Acid Calcium 7.5 L 7.3 L* Prot Corrected Calcium 8.2 L Phosphorus 3.1 Magnesium Total Bilirubin 0.4 Direct Bilirubin Indirect Bilirubin AST 19 ALT 24 Alkaline Phosphatase 73 Ammonia Total Creatine Kinase Troponin I C-Reactive Protein B-Natriuretic Peptide Total Protein 5.5 L Albumin 1.9 L 1.8 L Prealbumin Triglycerides Cholesterol LDL Cholesterol HDL Cholesterol Cholesterol/HDL Ratio Thiamine Vitamin B12 Procalcitonin Free T4 TSH 3rd Generation Urine Color Urine Clarity Urine Turbidity Urine pH Ur Specific [place] Urine Protein Urine Glucose (UA) Urine Ketones Urine Occult Blood Urine Nitrate Urine Nitrite Urine Bilirubin Urine Urobilinogen Ur Leukocyte Esterase Urine RBC Urine WBC Urine WBC Clumps Ur Squamous Epith Cells Ur Transition Epith Cell Ur Renal Epithelial Cell Amorphous Sediment Urine Bacteria Hyaline Casts Granular Casts Urine Mucus Micro UA Comment Urine Culture Comments Urine Eosinophils Urine Osmolality Ur Random Creatinine Ur Random Sodium Pleural pH Pleural WBC Pleural Nuc Cells Pleural RBC Pleural Neutrophils Pleural Eosinophils Pleural Lymphocytes Pleural Monocytes Pleural Histocytes Pleural Mesothelial Pleural Total Protein Pleural Amylase Pleural LDH Pleural Glucose Nasal Screen MRSA (PCR) Stl C.difficile Tox PCR St C. diff Tox Epid 027 Vancomycin Trough Random Vancomycin Phenytoin Free Phenytoin LOWELL Screen RPR Blood Type Antibody Screen MTS Gel Crossmatch Blood Bank Comment 11/08/17 11/09/17 11/09/17 06:27 08:50 08:50 WBC 7.7 7.7 RBC 3.99 L 3.38 L Hgb 11.6 L 9.7 L Hct 35.1 L 29.7 L MCV 88.0 87.8 MCH 29.0 28.7 MCHC 32.9 32.7 RDW 14.9 15.0 Plt Count 288 252 MPV 9.2 8.6 Prelim Diff (Auto) Neut % (Auto) 82.5 H 77.2 H Lymph % (Auto) 8.9 L 12.2 [place] % (Auto) 8.6 H 9.3 H Eos % (Auto) 0.0 1.0 Baso % (Auto) 0.0 0.3 Neut # (Auto) 6.3 5.9 Lymph # (Auto) 0.7 L 0.9 L [place] # (Auto) 0.7 0.7 Eos # (Auto) 0.0 0.1 Baso # (Auto) 0.0 0.0 CBC Comment DIFF FINAL DIFF FINAL WBC Differential Total Counted Neutrophils % (Manual) Seg Neuts % (Manual) Band Neutrophils % Band Neuts % (Manual) Lymphocytes % Lymphocytes % (Manual) Monocytes % Monocytes % (Manual) Eosinophils % Eosinophils % (Manual) Basophils % Metamyelocytes % (Man) Neutrophils # (Manual) Abs Neuts (Manual) Metamyelocytes Myelocytes Nucleated RBCs Differential Comment Smudge Cells Toxic Granulation Toxic Vacuolation Dohle Bodies Platelet Estimate Platelet Morphology Plt Morphology Comment Basophilic Stippling Spherocytes Tear Drop Cells Ovalocytes Acanthocytes (Spur) RBC Morph Comment ESR Hematology Comments PT INR APTT Fibrinogen Puncture Site Patient Temperature HCO3 Base Excess O2 Saturation ABG pH ABG pCO2 ABG pO2 ABG HCO3 ABG O2 Content ABG Base Excess ABG Carboxyhemoglobin ABG Methemoglobin Stepan Test Hemoglobin Carboxyhemoglobin O2 Delivery Device Liter Flow Vent Setting Inspired O2 Critical Value Sodium 136 Potassium 3.4 L Chloride 103 Carbon Dioxide 25.8 Anion Gap 7 BUN 19 H Creatinine 1.12 Estimated GFR 63 L POC Glucose Random Glucose 122 H D Hemoglobin A1c Lactic Acid Calcium 6.9 L* Prot Corrected Calcium 8.3 L Phosphorus Magnesium 1.6 Total Bilirubin 0.3 Direct Bilirubin Indirect Bilirubin AST 12 L ALT 17 Alkaline Phosphatase 56 Ammonia Total Creatine Kinase Troponin I C-Reactive Protein B-Natriuretic Peptide Total Protein 4.5 L D Albumin 1.6 L Prealbumin Triglycerides Cholesterol LDL Cholesterol HDL Cholesterol Cholesterol/HDL Ratio Thiamine Vitamin B12 Procalcitonin Free T4 TSH 3rd Generation Urine Color Urine Clarity Urine Turbidity Urine pH Ur Specific [place] Urine Protein Urine Glucose (UA) Urine Ketones Urine Occult Blood Urine Nitrate Urine Nitrite Urine Bilirubin Urine Urobilinogen Ur Leukocyte Esterase Urine RBC Urine WBC Urine WBC Clumps Ur Squamous Epith Cells Ur Transition Epith Cell Ur Renal Epithelial Cell Amorphous Sediment Urine Bacteria Hyaline Casts Granular Casts Urine Mucus Micro UA Comment Urine Culture Comments Urine Eosinophils Urine Osmolality Ur Random Creatinine Ur Random Sodium Pleural pH Pleural WBC Pleural Nuc Cells Pleural RBC Pleural Neutrophils Pleural Eosinophils Pleural Lymphocytes Pleural Monocytes Pleural Histocytes Pleural Mesothelial Pleural Total Protein Pleural Amylase Pleural LDH Pleural Glucose Nasal Screen MRSA (PCR) Stl C.difficile Tox PCR St C. diff Tox Epid 027 Vancomycin Trough Random Vancomycin Phenytoin Free Phenytoin LOWELL Screen RPR Blood Type Antibody Screen MTS Gel Crossmatch Blood Bank Comment 11/09/17 11/09/17 11/09/17 09:30 10:10 12:15 WBC RBC Hgb Hct MCV MCH MCHC RDW Plt Count MPV Prelim Diff (Auto) Neut % (Auto) Lymph % (Auto) [place] % (Auto) Eos % (Auto) Baso % (Auto) Neut # (Auto) Lymph # (Auto) [place] # (Auto) Eos # (Auto) Baso # (Auto) CBC Comment WBC Differential Total Counted Neutrophils % (Manual) Seg Neuts % (Manual) Band Neutrophils % Band Neuts % (Manual) Lymphocytes % Lymphocytes % (Manual) Monocytes % Monocytes % (Manual) Eosinophils % Eosinophils % (Manual) Basophils % Metamyelocytes % (Man) Neutrophils # (Manual) Abs Neuts (Manual) Metamyelocytes Myelocytes Nucleated RBCs Differential Comment Smudge Cells Toxic Granulation Toxic Vacuolation Dohle Bodies Platelet Estimate Platelet Morphology Plt Morphology Comment Basophilic Stippling Spherocytes Tear Drop Cells Ovalocytes Acanthocytes (Spur) RBC Morph Comment ESR Hematology Comments PT INR APTT 25.9 Fibrinogen Puncture Site Patient Temperature HCO3 Base Excess O2 Saturation ABG pH ABG pCO2 ABG pO2 ABG HCO3 ABG O2 Content ABG Base Excess ABG Carboxyhemoglobin ABG Methemoglobin Stepan Test Hemoglobin Carboxyhemoglobin O2 Delivery Device Liter Flow Vent Setting Inspired O2 Critical Value Sodium Potassium Chloride Carbon Dioxide Anion Gap BUN Creatinine Estimated GFR POC Glucose Random Glucose Hemoglobin A1c Lactic Acid Calcium Prot Corrected Calcium Phosphorus Magnesium Total Bilirubin Direct Bilirubin Indirect Bilirubin AST ALT Alkaline Phosphatase Ammonia Total Creatine Kinase Troponin I C-Reactive Protein B-Natriuretic Peptide Total Protein Albumin Prealbumin Triglycerides Cholesterol LDL Cholesterol HDL Cholesterol Cholesterol/HDL Ratio Thiamine Vitamin B12 Procalcitonin Free T4 TSH 3rd Generation Urine Color DARK-YELLOW H Urine Clarity Urine Turbidity CLEAR Urine pH 6.0 Ur Specific [place] 1.013 Urine Protein TRACE Urine Glucose (UA) 70 H Urine Ketones NEG Urine Occult Blood TRACE H Urine Nitrate Urine Nitrite NEG Urine Bilirubin NEG Urine Urobilinogen LESS THAN 2.0 Ur Leukocyte Esterase NEG Urine RBC 1 Urine WBC 1 Urine WBC Clumps Ur Squamous Epith Cells Ur Transition Epith Cell Ur Renal Epithelial Cell Amorphous Sediment Urine Bacteria Hyaline Casts Granular Casts Urine Mucus Micro UA Comment CATH-CULT NOT IND Urine Culture Comments Urine Eosinophils Urine Osmolality Ur Random Creatinine Ur Random Sodium Pleural pH Pleural WBC Pleural Nuc Cells Pleural RBC Pleural Neutrophils Pleural Eosinophils Pleural Lymphocytes Pleural Monocytes Pleural Histocytes Pleural Mesothelial Pleural Total Protein Pleural Amylase Pleural LDH Pleural Glucose Nasal Screen MRSA (PCR) MRSA NOT DETECTED Stl C.difficile Tox PCR St C. diff Tox Epid 027 Vancomycin Trough Random Vancomycin Phenytoin Free Phenytoin LOWELL Screen RPR Blood Type Antibody Screen MTS Gel Crossmatch Blood Bank Comment 11/09/17 11/09/17 11/09/17 12:15 12:18 16:00 WBC RBC Hgb 9.3 L Hct 28.3 L MCV MCH MCHC RDW Plt Count MPV Prelim Diff (Auto) Neut % (Auto) Lymph % (Auto) [place] % (Auto) Eos % (Auto) Baso % (Auto) Neut # (Auto) Lymph # (Auto) [place] # (Auto) Eos # (Auto) Baso # (Auto) CBC Comment WBC Differential Total Counted Neutrophils % (Manual) Seg Neuts % (Manual) Band Neutrophils % Band Neuts % (Manual) Lymphocytes % Lymphocytes % (Manual) Monocytes % Monocytes % (Manual) Eosinophils % Eosinophils % (Manual) Basophils % Metamyelocytes % (Man) Neutrophils # (Manual) Abs Neuts (Manual) Metamyelocytes Myelocytes Nucleated RBCs Differential Comment Smudge Cells Toxic Granulation Toxic Vacuolation Dohle Bodies Platelet Estimate Platelet Morphology Plt Morphology Comment Basophilic Stippling Spherocytes Tear Drop Cells Ovalocytes Acanthocytes (Spur) RBC Morph Comment ESR Hematology Comments PT INR APTT Fibrinogen Puncture Site ART LINE Patient Temperature 98.6 HCO3 25 Base Excess 1.9 O2 Saturation 96 ABG pH 7.49 H ABG pCO2 33 L ABG pO2 204 H ABG HCO3 ABG O2 Content 13.0 ABG Base Excess ABG Carboxyhemoglobin 0.9 ABG Methemoglobin 1.9 Stepan Test Hemoglobin 9.2 L Carboxyhemoglobin O2 Delivery Device VENTILATOR Liter Flow Vent Setting Inspired O2 100 Critical Value Sodium Potassium Chloride Carbon Dioxide Anion Gap BUN Creatinine Estimated GFR POC Glucose Random Glucose Hemoglobin A1c Lactic Acid Calcium Prot Corrected Calcium Phosphorus Magnesium 1.5 Total Bilirubin Direct Bilirubin Indirect Bilirubin AST ALT Alkaline Phosphatase Ammonia Total Creatine Kinase Troponin I C-Reactive Protein B-Natriuretic Peptide Total Protein Albumin Prealbumin Triglycerides Cholesterol LDL Cholesterol HDL Cholesterol Cholesterol/HDL Ratio Thiamine Vitamin B12 Procalcitonin Free T4 TSH 3rd Generation Urine Color Urine Clarity Urine Turbidity Urine pH Ur Specific [place] Urine Protein Urine Glucose (UA) Urine Ketones Urine Occult Blood Urine Nitrate Urine Nitrite Urine Bilirubin Urine Urobilinogen Ur Leukocyte Esterase Urine RBC Urine WBC Urine WBC Clumps Ur Squamous Epith Cells Ur Transition Epith Cell Ur Renal Epithelial Cell Amorphous Sediment Urine Bacteria Hyaline Casts Granular Casts Urine Mucus Micro UA Comment Urine Culture Comments Urine Eosinophils Urine Osmolality Ur Random Creatinine Ur Random Sodium Pleural pH Pleural WBC Pleural Nuc Cells Pleural RBC Pleural Neutrophils Pleural Eosinophils Pleural Lymphocytes Pleural Monocytes Pleural Histocytes Pleural Mesothelial Pleural Total Protein Pleural Amylase Pleural LDH Pleural Glucose Nasal Screen MRSA (PCR) Stl C.difficile Tox PCR St C. diff Tox Epid 027 Vancomycin Trough Random Vancomycin Phenytoin Free Phenytoin LOWELL Screen RPR Blood Type Antibody Screen MTS Gel Crossmatch Blood Bank Comment 11/09/17 11/09/17 11/10/17 16:00 19:48 02:59 WBC 6.2 RBC 2.96 L Hgb 8.7 L 8.6 L Hct 27.2 L 25.8 L MCV 87.0 MCH 29.0 MCHC 33.3 RDW 14.8 Plt Count 234 MPV 8.4 Prelim Diff (Auto) Neut % (Auto) Lymph % (Auto) [place] % (Auto) Eos % (Auto) Baso % (Auto) Neut # (Auto) Lymph # (Auto) [place] # (Auto) Eos # (Auto) Baso # (Auto) CBC Comment WBC Differential Total Counted Neutrophils % (Manual) Seg Neuts % (Manual) Band Neutrophils % Band Neuts % (Manual) Lymphocytes % Lymphocytes % (Manual) Monocytes % Monocytes % (Manual) Eosinophils % Eosinophils % (Manual) Basophils % Metamyelocytes % (Man) Neutrophils # (Manual) Abs Neuts (Manual) Metamyelocytes Myelocytes Nucleated RBCs Differential Comment Smudge Cells Toxic Granulation Toxic Vacuolation Dohle Bodies Platelet Estimate Platelet Morphology Plt Morphology Comment Basophilic Stippling Spherocytes Tear Drop Cells Ovalocytes Acanthocytes (Spur) RBC Morph Comment ESR Hematology Comments PT INR APTT Fibrinogen Puncture Site Patient Temperature HCO3 Base Excess O2 Saturation ABG pH ABG pCO2 ABG pO2 ABG HCO3 ABG O2 Content ABG Base Excess ABG Carboxyhemoglobin ABG Methemoglobin Stepan Test Hemoglobin Carboxyhemoglobin O2 Delivery Device Liter Flow Vent Setting Inspired O2 Critical Value Sodium Potassium Chloride Carbon Dioxide Anion Gap BUN Creatinine Estimated GFR POC Glucose Random Glucose Hemoglobin A1c Lactic Acid Calcium Prot Corrected Calcium Phosphorus Magnesium Total Bilirubin Direct Bilirubin Indirect Bilirubin AST ALT Alkaline Phosphatase Ammonia 26 Total Creatine Kinase Troponin I C-Reactive Protein B-Natriuretic Peptide Total Protein Albumin Prealbumin Triglycerides Cholesterol LDL Cholesterol HDL Cholesterol Cholesterol/HDL Ratio Thiamine Vitamin B12 Procalcitonin Free T4 TSH 3rd Generation Urine Color Urine Clarity Urine Turbidity Urine pH Ur Specific [place] Urine Protein Urine Glucose (UA) Urine Ketones Urine Occult Blood Urine Nitrate Urine Nitrite Urine Bilirubin Urine Urobilinogen Ur Leukocyte Esterase Urine RBC Urine WBC Urine WBC Clumps Ur Squamous Epith Cells Ur Transition Epith Cell Ur Renal Epithelial Cell Amorphous Sediment Urine Bacteria Hyaline Casts Granular Casts Urine Mucus Micro UA Comment Urine Culture Comments Urine Eosinophils Urine Osmolality Ur Random Creatinine Ur Random Sodium Pleural pH Pleural WBC Pleural Nuc Cells Pleural RBC Pleural Neutrophils Pleural Eosinophils Pleural Lymphocytes Pleural Monocytes Pleural Histocytes Pleural Mesothelial Pleural Total Protein Pleural Amylase Pleural LDH Pleural Glucose Nasal Screen MRSA (PCR) Stl C.difficile Tox PCR St C. diff Tox Epid 027 Vancomycin Trough Random Vancomycin Phenytoin Free Phenytoin LOWELL Screen RPR Blood Type Antibody Screen MTS Gel Crossmatch Blood Bank Comment 11/10/17 11/10/17 11/10/17 06:48 06:48 18:33 WBC RBC Hgb 8.7 L Hct 26.1 L MCV MCH MCHC RDW Plt Count MPV Prelim Diff (Auto) Neut % (Auto) Lymph % (Auto) [place] % (Auto) Eos % (Auto) Baso % (Auto) Neut # (Auto) Lymph # (Auto) [place] # (Auto) Eos # (Auto) Baso # (Auto) CBC Comment WBC Differential Total Counted Neutrophils % (Manual) Seg Neuts % (Manual) Band Neutrophils % Band Neuts % (Manual) Lymphocytes % Lymphocytes % (Manual) Monocytes % Monocytes % (Manual) Eosinophils % Eosinophils % (Manual) Basophils % Metamyelocytes % (Man) Neutrophils # (Manual) Abs Neuts (Manual) Metamyelocytes Myelocytes Nucleated RBCs Differential Comment Smudge Cells Toxic Granulation Toxic Vacuolation Dohle Bodies Platelet Estimate Platelet Morphology Plt Morphology Comment Basophilic Stippling Spherocytes Tear Drop Cells Ovalocytes Acanthocytes (Spur) RBC Morph Comment ESR Hematology Comments PT INR APTT Fibrinogen Puncture Site Patient Temperature HCO3 Base Excess O2 Saturation ABG pH ABG pCO2 ABG pO2 ABG HCO3 ABG O2 Content ABG Base Excess ABG Carboxyhemoglobin ABG Methemoglobin Stepan Test Hemoglobin Carboxyhemoglobin O2 Delivery Device Liter Flow Vent Setting Inspired O2 Critical Value Sodium 142 Potassium 2.5 L* D Chloride 114 H D Carbon Dioxide 17.9 L Anion Gap 10 BUN 12 Creatinine 0.64 Estimated GFR 121 POC Glucose Random Glucose 94 Hemoglobin A1c Lactic Acid Calcium 5.1 L* D Prot Corrected Calcium 6.4 L* Phosphorus Magnesium Total Bilirubin Direct Bilirubin Indirect Bilirubin AST ALT Alkaline Phosphatase Ammonia Total Creatine Kinase Troponin I C-Reactive Protein B-Natriuretic Peptide Total Protein 4.0 L Albumin Prealbumin Triglycerides Cholesterol LDL Cholesterol HDL Cholesterol Cholesterol/HDL Ratio Thiamine Vitamin B12 Procalcitonin Free T4 TSH 3rd Generation Urine Color Urine Clarity Urine Turbidity Urine pH Ur Specific [place] Urine Protein Urine Glucose (UA) Urine Ketones Urine Occult Blood Urine Nitrate Urine Nitrite Urine Bilirubin Urine Urobilinogen Ur Leukocyte Esterase Urine RBC Urine WBC Urine WBC Clumps Ur Squamous Epith Cells Ur Transition Epith Cell Ur Renal Epithelial Cell Amorphous Sediment Urine Bacteria Hyaline Casts Granular Casts Urine Mucus Micro UA Comment Urine Culture Comments Urine Eosinophils Urine Osmolality Ur Random Creatinine Ur Random Sodium Pleural pH Pleural WBC Pleural Nuc Cells Pleural RBC Pleural Neutrophils Pleural Eosinophils Pleural Lymphocytes Pleural Monocytes Pleural Histocytes Pleural Mesothelial Pleural Total Protein Pleural Amylase Pleural LDH Pleural Glucose Nasal Screen MRSA (PCR) Stl C.difficile Tox PCR St C. diff Tox Epid 027 Vancomycin Trough Random Vancomycin Phenytoin 5.4 L Free Phenytoin LOWELL Screen NEG RPR NON-REACTIVE Blood Type Antibody Screen MTS Gel Crossmatch Blood Bank Comment 11/10/17 11/10/17 11/10/17 21:41 21:41 21:41 WBC RBC Hgb 10.9 L D Hct 33.2 L MCV MCH MCHC RDW Plt Count MPV Prelim Diff (Auto) Neut % (Auto) Lymph % (Auto) [place] % (Auto) Eos % (Auto) Baso % (Auto) Neut # (Auto) Lymph # (Auto) [place] # (Auto) Eos # (Auto) Baso # (Auto) CBC Comment WBC Differential Total Counted Neutrophils % (Manual) Seg Neuts % (Manual) Band Neutrophils % Band Neuts % (Manual) Lymphocytes % Lymphocytes % (Manual) Monocytes % Monocytes % (Manual) Eosinophils % Eosinophils % (Manual) Basophils % Metamyelocytes % (Man) Neutrophils # (Manual) Abs Neuts (Manual) Metamyelocytes Myelocytes Nucleated RBCs Differential Comment Smudge Cells Toxic Granulation Toxic Vacuolation Dohle Bodies Platelet Estimate Platelet Morphology Plt Morphology Comment Basophilic Stippling Spherocytes Tear Drop Cells Ovalocytes Acanthocytes (Spur) RBC Morph Comment ESR Hematology Comments PT INR APTT Fibrinogen Puncture Site Patient Temperature HCO3 Base Excess O2 Saturation ABG pH ABG pCO2 ABG pO2 ABG HCO3 ABG O2 Content ABG Base Excess ABG Carboxyhemoglobin ABG Methemoglobin Stepan Test Hemoglobin Carboxyhemoglobin O2 Delivery Device Liter Flow Vent Setting Inspired O2 Critical Value Sodium Potassium 3.8 D Cancelled Chloride Carbon Dioxide Anion Gap BUN Creatinine Estimated GFR POC Glucose Random Glucose Hemoglobin A1c Lactic Acid Calcium Prot Corrected Calcium Phosphorus Magnesium Total Bilirubin Direct Bilirubin Indirect Bilirubin AST ALT Alkaline Phosphatase Ammonia Total Creatine Kinase Troponin I C-Reactive Protein 10.90 H B-Natriuretic Peptide Total Protein Albumin Prealbumin Triglycerides Cholesterol LDL Cholesterol HDL Cholesterol Cholesterol/HDL Ratio Thiamine Vitamin B12 Procalcitonin Free T4 TSH 3rd Generation Urine Color Urine Clarity Urine Turbidity Urine pH Ur Specific [place] Urine Protein Urine Glucose (UA) Urine Ketones Urine Occult Blood Urine Nitrate Urine Nitrite Urine Bilirubin Urine Urobilinogen Ur Leukocyte Esterase Urine RBC Urine WBC Urine WBC Clumps Ur Squamous Epith Cells Ur Transition Epith Cell Ur Renal Epithelial Cell Amorphous Sediment Urine Bacteria Hyaline Casts Granular Casts Urine Mucus Micro UA Comment Urine Culture Comments Urine Eosinophils Urine Osmolality Ur Random Creatinine Ur Random Sodium Pleural pH Pleural WBC Pleural Nuc Cells Pleural RBC Pleural Neutrophils Pleural Eosinophils Pleural Lymphocytes Pleural Monocytes Pleural Histocytes Pleural Mesothelial Pleural Total Protein Pleural Amylase Pleural LDH Pleural Glucose Nasal Screen MRSA (PCR) Stl C.difficile Tox PCR St C. diff Tox Epid 027 Vancomycin Trough Random Vancomycin Phenytoin Free Phenytoin LOWELL Screen RPR Blood Type Antibody Screen MTS Gel Crossmatch Blood Bank Comment 11/11/17 11/11/17 11/11/17 03:40 03:40 03:40 WBC 7.8 RBC 3.56 L Hgb 10.4 L Hct 30.9 L MCV 86.7 MCH 29.2 MCHC 33.7 RDW 15.0 Plt Count 206 MPV 8.4 Prelim Diff (Auto) Neut % (Auto) Lymph % (Auto) [place] % (Auto) Eos % (Auto) Baso % (Auto) Neut # (Auto) Lymph # (Auto) [place] # (Auto) Eos # (Auto) Baso # (Auto) CBC Comment WBC Differential Total Counted Neutrophils % (Manual) Seg Neuts % (Manual) Band Neutrophils % Band Neuts % (Manual) Lymphocytes % Lymphocytes % (Manual) Monocytes % Monocytes % (Manual) Eosinophils % Eosinophils % (Manual) Basophils % Metamyelocytes % (Man) Neutrophils # (Manual) Abs Neuts (Manual) Metamyelocytes Myelocytes Nucleated RBCs Differential Comment Smudge Cells Toxic Granulation Toxic Vacuolation Dohle Bodies Platelet Estimate Platelet Morphology Plt Morphology Comment Basophilic Stippling Spherocytes Tear Drop Cells Ovalocytes Acanthocytes (Spur) RBC Morph Comment ESR 38 H Hematology Comments PT INR APTT Fibrinogen Puncture Site Patient Temperature HCO3 Base Excess O2 Saturation ABG pH ABG pCO2 ABG pO2 ABG HCO3 ABG O2 Content ABG Base Excess ABG Carboxyhemoglobin ABG Methemoglobin Stepan Test Hemoglobin Carboxyhemoglobin O2 Delivery Device Liter Flow Vent Setting Inspired O2 Critical Value Sodium 133 L Potassium 3.8 Chloride 100 D Carbon Dioxide 23.1 Anion Gap 10 BUN 14 Creatinine 0.91 Estimated GFR 81 L POC Glucose Random Glucose 140 H Hemoglobin A1c Lactic Acid Calcium 7.1 L* D Prot Corrected Calcium 8.1 L D Phosphorus Magnesium Total Bilirubin Direct Bilirubin Indirect Bilirubin AST ALT Alkaline Phosphatase Ammonia Total Creatine Kinase Troponin I C-Reactive Protein B-Natriuretic Peptide Total Protein 5.2 L D Albumin Prealbumin Triglycerides Cholesterol LDL Cholesterol HDL Cholesterol Cholesterol/HDL Ratio Thiamine Vitamin B12 Procalcitonin Free T4 TSH 3rd Generation Urine Color Urine Clarity Urine Turbidity Urine pH Ur Specific [place] Urine Protein Urine Glucose (UA) Urine Ketones Urine Occult Blood Urine Nitrate Urine Nitrite Urine Bilirubin Urine Urobilinogen Ur Leukocyte Esterase Urine RBC Urine WBC Urine WBC Clumps Ur Squamous Epith Cells Ur Transition Epith Cell Ur Renal Epithelial Cell Amorphous Sediment Urine Bacteria Hyaline Casts Granular Casts Urine Mucus Micro UA Comment Urine Culture Comments Urine Eosinophils Urine Osmolality Ur Random Creatinine Ur Random Sodium Pleural pH Pleural WBC Pleural Nuc Cells Pleural RBC Pleural Neutrophils Pleural Eosinophils Pleural Lymphocytes Pleural Monocytes Pleural Histocytes Pleural Mesothelial Pleural Total Protein Pleural Amylase Pleural LDH Pleural Glucose Nasal Screen MRSA (PCR) Stl C.difficile Tox PCR St C. diff Tox Epid 027 Vancomycin Trough Random Vancomycin Phenytoin 14.7 Free Phenytoin LOWELL Screen RPR Blood Type Antibody Screen MTS Gel Crossmatch Blood Bank Comment 11/11/17 11/12/17 11/12/17 12:00 11:57 11:57 WBC 7.5 RBC 3.79 L Hgb 11.0 L Hct 33.4 L MCV 88.2 MCH 28.9 MCHC 32.8 RDW 15.4 Plt Count 181 MPV 8.4 Prelim Diff (Auto) Neut % (Auto) Lymph % (Auto) [place] % (Auto) Eos % (Auto) Baso % (Auto) Neut # (Auto) Lymph # (Auto) [place] # (Auto) Eos # (Auto) Baso # (Auto) CBC Comment WBC Differential Total Counted Neutrophils % (Manual) Seg Neuts % (Manual) Band Neutrophils % Band Neuts % (Manual) Lymphocytes % Lymphocytes % (Manual) Monocytes % Monocytes % (Manual) Eosinophils % Eosinophils % (Manual) Basophils % Metamyelocytes % (Man) Neutrophils # (Manual) Abs Neuts (Manual) Metamyelocytes Myelocytes Nucleated RBCs Differential Comment Smudge Cells Toxic Granulation Toxic Vacuolation Dohle Bodies Platelet Estimate Platelet Morphology Plt Morphology Comment Basophilic Stippling Spherocytes Tear Drop Cells Ovalocytes Acanthocytes (Spur) RBC Morph Comment ESR Hematology Comments PT INR APTT Fibrinogen Puncture Site ART LINE Patient Temperature 98.6 HCO3 20 L Base Excess -3.8 L O2 Saturation 94 ABG pH 7.40 ABG pCO2 33 L ABG pO2 91 ABG HCO3 ABG O2 Content 12.9 ABG Base Excess ABG Carboxyhemoglobin 0.9 ABG Methemoglobin 1.8 Stepan Test Hemoglobin 9.7 L Carboxyhemoglobin O2 Delivery Device VENTILATOR Liter Flow Vent Setting [id number] Inspired O2 35 Critical Value Sodium 134 L Potassium 3.8 Chloride 102 Carbon Dioxide 20.2 L Anion Gap 12 BUN 16 Creatinine 1.04 Estimated GFR 69 L POC Glucose Random Glucose 184 H Hemoglobin A1c Lactic Acid Calcium 7.3 L* Prot Corrected Calcium 8.2 L Phosphorus Magnesium Total Bilirubin Direct Bilirubin Indirect Bilirubin AST ALT Alkaline Phosphatase Ammonia Total Creatine Kinase Troponin I C-Reactive Protein B-Natriuretic Peptide Total Protein 5.5 L Albumin Prealbumin Triglycerides Cholesterol LDL Cholesterol HDL Cholesterol Cholesterol/HDL Ratio Thiamine Vitamin B12 Procalcitonin Free T4 TSH 3rd Generation Urine Color Urine Clarity Urine Turbidity Urine pH Ur Specific [place] Urine Protein Urine Glucose (UA) Urine Ketones Urine Occult Blood Urine Nitrate Urine Nitrite Urine Bilirubin Urine Urobilinogen Ur Leukocyte Esterase Urine RBC Urine WBC Urine WBC Clumps Ur Squamous Epith Cells Ur Transition Epith Cell Ur Renal Epithelial Cell Amorphous Sediment Urine Bacteria Hyaline Casts Granular Casts Urine Mucus Micro UA Comment Urine Culture Comments Urine Eosinophils Urine Osmolality Ur Random Creatinine Ur Random Sodium Pleural pH Pleural WBC Pleural Nuc Cells Pleural RBC Pleural Neutrophils Pleural Eosinophils Pleural Lymphocytes Pleural Monocytes Pleural Histocytes Pleural Mesothelial Pleural Total Protein Pleural Amylase Pleural LDH Pleural Glucose Nasal Screen MRSA (PCR) Stl C.difficile Tox PCR St C. diff Tox Epid 027 Vancomycin Trough Random Vancomycin Phenytoin 16.9 Free Phenytoin LOWELL Screen RPR Blood Type Antibody Screen MTS Gel Crossmatch Blood Bank Comment 11/13/17 11/13/17 11/14/17 05:44 05:44 07:30 WBC 4.3 RBC 3.33 L Hgb 9.8 L Hct 29.0 L MCV 87.1 MCH 29.3 MCHC 33.7 RDW 15.0 Plt Count 164 MPV 8.4 Prelim Diff (Auto) Neut % (Auto) Lymph % (Auto) [place] % (Auto) Eos % (Auto) Baso % (Auto) Neut # (Auto) Lymph # (Auto) [place] # (Auto) Eos # (Auto) Baso # (Auto) CBC Comment WBC Differential Total Counted Neutrophils % (Manual) Seg Neuts % (Manual) Band Neutrophils % Band Neuts % (Manual) Lymphocytes % Lymphocytes % (Manual) Monocytes % Monocytes % (Manual) Eosinophils % Eosinophils % (Manual) Basophils % Metamyelocytes % (Man) Neutrophils # (Manual) Abs Neuts (Manual) Metamyelocytes Myelocytes Nucleated RBCs Differential Comment Smudge Cells Toxic Granulation Toxic Vacuolation Dohle Bodies Platelet Estimate Platelet Morphology Plt Morphology Comment Basophilic Stippling Spherocytes Tear Drop Cells Ovalocytes Acanthocytes (Spur) RBC Morph Comment ESR Hematology Comments PT INR APTT Fibrinogen Puncture Site Patient Temperature HCO3 Base Excess O2 Saturation ABG pH ABG pCO2 ABG pO2 ABG HCO3 ABG O2 Content ABG Base Excess ABG Carboxyhemoglobin ABG Methemoglobin Stepan Test Hemoglobin Carboxyhemoglobin O2 Delivery Device Liter Flow Vent Setting Inspired O2 Critical Value Sodium 139 137 Potassium 3.4 L 3.6 Chloride 105 105 Carbon Dioxide 24.1 25.1 Anion Gap 10 7 BUN 13 14 Creatinine 1.11 1.10 Estimated GFR 64 L 65 L POC Glucose Random Glucose 140 H 184 H Hemoglobin A1c Lactic Acid Calcium 7.3 L* 7.1 L* Prot Corrected Calcium 8.4 L 8.5 Phosphorus Magnesium Total Bilirubin Direct Bilirubin Indirect Bilirubin AST ALT Alkaline Phosphatase Ammonia Total Creatine Kinase Troponin I C-Reactive Protein B-Natriuretic Peptide Total Protein 5.1 L 4.6 L Albumin Prealbumin Triglycerides Cholesterol LDL Cholesterol HDL Cholesterol Cholesterol/HDL Ratio Thiamine Vitamin B12 Procalcitonin Free T4 TSH 3rd Generation Urine Color Urine Clarity Urine Turbidity Urine pH Ur Specific [place] Urine Protein Urine Glucose (UA) Urine Ketones Urine Occult Blood Urine Nitrate Urine Nitrite Urine Bilirubin Urine Urobilinogen Ur Leukocyte Esterase Urine RBC Urine WBC Urine WBC Clumps Ur Squamous Epith Cells Ur Transition Epith Cell Ur Renal Epithelial Cell Amorphous Sediment Urine Bacteria Hyaline Casts Granular Casts Urine Mucus Micro UA Comment Urine Culture Comments Urine Eosinophils Urine Osmolality Ur Random Creatinine Ur Random Sodium Pleural pH Pleural WBC Pleural Nuc Cells Pleural RBC Pleural Neutrophils Pleural Eosinophils Pleural Lymphocytes Pleural Monocytes Pleural Histocytes Pleural Mesothelial Pleural Total Protein Pleural Amylase Pleural LDH Pleural Glucose Nasal Screen MRSA (PCR) Stl C.difficile Tox PCR St C. diff Tox Epid 027 Vancomycin Trough Random Vancomycin Phenytoin 15.3 13.1 Free Phenytoin LOWELL Screen RPR Blood Type Antibody Screen MTS Gel Crossmatch Blood Bank Comment 11/14/17 11/14/17 11/14/17 07:30 11:53 12:48 WBC 4.9 RBC 3.10 L Hgb 9.0 L Hct 27.0 L MCV 86.9 MCH 29.0 MCHC 33.4 RDW 15.1 Plt Count 133 L MPV 8.2 Prelim Diff (Auto) Neut % (Auto) Lymph % (Auto) [place] % (Auto) Eos % (Auto) Baso % (Auto) Neut # (Auto) Lymph # (Auto) [place] # (Auto) Eos # (Auto) Baso # (Auto) CBC Comment WBC Differential Total Counted Neutrophils % (Manual) Seg Neuts % (Manual) Band Neutrophils % Band Neuts % (Manual) Lymphocytes % Lymphocytes % (Manual) Monocytes % Monocytes % (Manual) Eosinophils % Eosinophils % (Manual) Basophils % Metamyelocytes % (Man) Neutrophils # (Manual) Abs Neuts (Manual) Metamyelocytes Myelocytes Nucleated RBCs Differential Comment Smudge Cells Toxic Granulation Toxic Vacuolation Dohle Bodies Platelet Estimate Platelet Morphology Plt Morphology Comment Basophilic Stippling Spherocytes Tear Drop Cells Ovalocytes Acanthocytes (Spur) RBC Morph Comment ESR Hematology Comments PT INR APTT Fibrinogen Puncture Site LT RADIAL Patient Temperature 98.6 HCO3 25 Base Excess 1.8 O2 Saturation 90 ABG pH 7.48 H ABG pCO2 35 L ABG pO2 63 ABG HCO3 ABG O2 Content 15.7 ABG Base Excess ABG Carboxyhemoglobin 1.1 ABG Methemoglobin 1.5 Stepan Test Hemoglobin 12.4 Carboxyhemoglobin O2 Delivery Device NASAL [place] Liter Flow 3 Vent Setting Inspired O2 Critical Value Sodium Potassium Chloride Carbon Dioxide Anion Gap BUN Creatinine Estimated GFR POC Glucose Random Glucose Hemoglobin A1c Lactic Acid Calcium Prot Corrected Calcium Phosphorus Magnesium Total Bilirubin Direct Bilirubin Indirect Bilirubin AST ALT Alkaline Phosphatase Ammonia 31 Total Creatine Kinase Troponin I C-Reactive Protein B-Natriuretic Peptide Total Protein Albumin Prealbumin Triglycerides Cholesterol LDL Cholesterol HDL Cholesterol Cholesterol/HDL Ratio Thiamine Vitamin B12 Procalcitonin Free T4 TSH 3rd Generation Urine Color Urine Clarity Urine Turbidity Urine pH Ur Specific [place] Urine Protein Urine Glucose (UA) Urine Ketones Urine Occult Blood Urine Nitrate Urine Nitrite Urine Bilirubin Urine Urobilinogen Ur Leukocyte Esterase Urine RBC Urine WBC Urine WBC Clumps Ur Squamous Epith Cells Ur Transition Epith Cell Ur Renal Epithelial Cell Amorphous Sediment Urine Bacteria Hyaline Casts Granular Casts Urine Mucus Micro UA Comment Urine Culture Comments Urine Eosinophils Urine Osmolality Ur Random Creatinine Ur Random Sodium Pleural pH Pleural WBC Pleural Nuc Cells Pleural RBC Pleural Neutrophils Pleural Eosinophils Pleural Lymphocytes Pleural Monocytes Pleural Histocytes Pleural Mesothelial Pleural Total Protein Pleural Amylase Pleural LDH Pleural Glucose Nasal Screen MRSA (PCR) Stl C.difficile Tox PCR St C. diff Tox Epid 027 Vancomycin Trough Random Vancomycin Phenytoin Free Phenytoin LOWELL Screen RPR Blood Type Antibody Screen MTS Gel Crossmatch Blood Bank Comment 11/15/17 11/15/17 11/15/17 06:10 06:10 06:10 WBC 7.1 RBC 3.34 L Hgb 9.7 L Hct 29.2 L MCV 87.3 MCH 29.1 MCHC 33.4 RDW 14.8 Plt Count 139 L MPV 8.1 Prelim Diff (Auto) Neut % (Auto) 65.9 Lymph % (Auto) 23.0 [place] % (Auto) 9.4 H Eos % (Auto) 1.2 Baso % (Auto) 0.5 Neut # (Auto) 4.7 Lymph # (Auto) 1.6 [place] # (Auto) 0.7 Eos # (Auto) 0.1 Baso # (Auto) 0.0 CBC Comment DIFF FINAL WBC Differential Total Counted Neutrophils % (Manual) Seg Neuts % (Manual) Band Neutrophils % Band Neuts % (Manual) Lymphocytes % Lymphocytes % (Manual) Monocytes % Monocytes % (Manual) Eosinophils % Eosinophils % (Manual) Basophils % Metamyelocytes % (Man) Neutrophils # (Manual) Abs Neuts (Manual) Metamyelocytes Myelocytes Nucleated RBCs Differential Comment Smudge Cells Toxic Granulation Toxic Vacuolation Dohle Bodies Platelet Estimate Platelet Morphology Plt Morphology Comment Basophilic Stippling Spherocytes Tear Drop Cells Ovalocytes Acanthocytes (Spur) RBC Morph Comment ESR Hematology Comments PT INR APTT Fibrinogen Puncture Site Patient Temperature HCO3 Base Excess O2 Saturation ABG pH ABG pCO2 ABG pO2 ABG HCO3 ABG O2 Content ABG Base Excess ABG Carboxyhemoglobin ABG Methemoglobin Stepan Test Hemoglobin Carboxyhemoglobin O2 Delivery Device Liter Flow Vent Setting Inspired O2 Critical Value Sodium 135 L Potassium 3.8 Chloride 102 Carbon Dioxide 23.5 Anion Gap 10 BUN 17 Creatinine 1.21 Estimated GFR 58 L POC Glucose Random Glucose 139 H Hemoglobin A1c Lactic Acid Calcium 7.1 L* Prot Corrected Calcium 8.2 L Phosphorus Magnesium 1.6 Total Bilirubin Direct Bilirubin Indirect Bilirubin AST ALT Alkaline Phosphatase Ammonia Total Creatine Kinase Troponin I C-Reactive Protein B-Natriuretic Peptide 538 H Total Protein 5.0 L Albumin Prealbumin Triglycerides Cholesterol LDL Cholesterol HDL Cholesterol Cholesterol/HDL Ratio Thiamine Vitamin B12 Procalcitonin Free T4 TSH 3rd Generation Urine Color Urine Clarity Urine Turbidity Urine pH Ur Specific [place] Urine Protein Urine Glucose (UA) Urine Ketones Urine Occult Blood Urine Nitrate Urine Nitrite Urine Bilirubin Urine Urobilinogen Ur Leukocyte Esterase Urine RBC Urine WBC Urine WBC Clumps Ur Squamous Epith Cells Ur Transition Epith Cell Ur Renal Epithelial Cell Amorphous Sediment Urine Bacteria Hyaline Casts Granular Casts Urine Mucus Micro UA Comment Urine Culture Comments Urine Eosinophils Urine Osmolality Ur Random Creatinine Ur Random Sodium Pleural pH Pleural WBC Pleural Nuc Cells Pleural RBC Pleural Neutrophils Pleural Eosinophils Pleural Lymphocytes Pleural Monocytes Pleural Histocytes Pleural Mesothelial Pleural Total Protein Pleural Amylase Pleural LDH Pleural Glucose Nasal Screen MRSA (PCR) Stl C.difficile Tox PCR St C. diff Tox Epid 027 Vancomycin Trough Random Vancomycin Phenytoin 12.4 Free Phenytoin LOWELL Screen RPR Blood Type Antibody Screen MTS Gel Crossmatch Blood Bank Comment 11/15/17 11/16/17 11/16/17 13:08 06:55 06:55 WBC 6.8 RBC 3.35 L Hgb 9.7 L Hct 28.8 L MCV 86.0 MCH 29.0 MCHC 33.7 RDW 15.1 Plt Count 144 L MPV 8.1 Prelim Diff (Auto) Neut % (Auto) Lymph % (Auto) [place] % (Auto) Eos % (Auto) Baso % (Auto) Neut # (Auto) Lymph # (Auto) [place] # (Auto) Eos # (Auto) Baso # (Auto) CBC Comment WBC Differential Total Counted Neutrophils % (Manual) Seg Neuts % (Manual) Band Neutrophils % Band Neuts % (Manual) Lymphocytes % Lymphocytes % (Manual) Monocytes % Monocytes % (Manual) Eosinophils % Eosinophils % (Manual) Basophils % Metamyelocytes % (Man) Neutrophils # (Manual) Abs Neuts (Manual) Metamyelocytes Myelocytes Nucleated RBCs Differential Comment Smudge Cells Toxic Granulation Toxic Vacuolation Dohle Bodies Platelet Estimate Platelet Morphology Plt Morphology Comment Basophilic Stippling Spherocytes Tear Drop Cells Ovalocytes Acanthocytes (Spur) RBC Morph Comment ESR Hematology Comments PT INR APTT Fibrinogen Puncture Site Patient Temperature HCO3 Base Excess O2 Saturation ABG pH ABG pCO2 ABG pO2 ABG HCO3 ABG O2 Content ABG Base Excess ABG Carboxyhemoglobin ABG Methemoglobin Stepan Test Hemoglobin Carboxyhemoglobin O2 Delivery Device Liter Flow Vent Setting Inspired O2 Critical Value Sodium 135 L Potassium 3.6 Chloride 101 Carbon Dioxide 24.3 Anion Gap 10 BUN 18 Creatinine 1.26 Estimated GFR 55 L POC Glucose Random Glucose 100 Hemoglobin A1c Lactic Acid Calcium 7.0 L* Prot Corrected Calcium 8.1 L Phosphorus Magnesium Total Bilirubin Direct Bilirubin Indirect Bilirubin AST ALT Alkaline Phosphatase Ammonia Total Creatine Kinase Troponin I C-Reactive Protein B-Natriuretic Peptide Total Protein 5.1 L Albumin Prealbumin Triglycerides Cholesterol LDL Cholesterol HDL Cholesterol Cholesterol/HDL Ratio Thiamine Vitamin B12 Procalcitonin Free T4 TSH 3rd Generation Urine Color Urine Clarity Urine Turbidity Urine pH Ur Specific [place] Urine Protein Urine Glucose (UA) Urine Ketones Urine Occult Blood Urine Nitrate Urine Nitrite Urine Bilirubin Urine Urobilinogen Ur Leukocyte Esterase Urine RBC Urine WBC Urine WBC Clumps Ur Squamous Epith Cells Ur Transition Epith Cell Ur Renal Epithelial Cell Amorphous Sediment Urine Bacteria Hyaline Casts Granular Casts Urine Mucus Micro UA Comment Urine Culture Comments Urine Eosinophils Urine Osmolality Ur Random Creatinine Ur Random Sodium Pleural pH Pleural WBC Pleural Nuc Cells Pleural RBC Pleural Neutrophils Pleural Eosinophils Pleural Lymphocytes Pleural Monocytes Pleural Histocytes Pleural Mesothelial Pleural Total Protein Pleural Amylase Pleural LDH Pleural Glucose Nasal Screen MRSA (PCR) Stl C.difficile Tox PCR St C. diff Tox Epid 027 Vancomycin Trough Random Vancomycin Phenytoin 11.3 Free Phenytoin 2.5 H LOWELL Screen RPR Blood Type Antibody Screen MTS Gel Crossmatch Blood Bank Comment 11/17/17 11/17/17 11/17/17 06:59 06:59 18:43 WBC 5.7 RBC 3.07 L Hgb 8.9 L Hct 26.4 L MCV 85.8 MCH 28.9 MCHC 33.7 RDW 14.6 Plt Count 146 L MPV 8.6 Prelim Diff (Auto) Neut % (Auto) Lymph % (Auto) [place] % (Auto) Eos % (Auto) Baso % (Auto) Neut # (Auto) Lymph # (Auto) [place] # (Auto) Eos # (Auto) Baso # (Auto) CBC Comment WBC Differential Total Counted Neutrophils % (Manual) Seg Neuts % (Manual) Band Neutrophils % Band Neuts % (Manual) Lymphocytes % Lymphocytes % (Manual) Monocytes % Monocytes % (Manual) Eosinophils % Eosinophils % (Manual) Basophils % Metamyelocytes % (Man) Neutrophils # (Manual) Abs Neuts (Manual) Metamyelocytes Myelocytes Nucleated RBCs Differential Comment Smudge Cells Toxic Granulation Toxic Vacuolation Dohle Bodies Platelet Estimate Platelet Morphology Plt Morphology Comment Basophilic Stippling Spherocytes Tear Drop Cells Ovalocytes Acanthocytes (Spur) RBC Morph Comment ESR Hematology Comments PT INR APTT Fibrinogen Puncture Site Patient Temperature HCO3 Base Excess O2 Saturation ABG pH ABG pCO2 ABG pO2 ABG HCO3 ABG O2 Content ABG Base Excess ABG Carboxyhemoglobin ABG Methemoglobin Stepan Test Hemoglobin Carboxyhemoglobin O2 Delivery Device Liter Flow Vent Setting Inspired O2 Critical Value Sodium 136 Potassium 3.7 Chloride 102 Carbon Dioxide 25.0 Anion Gap 9 BUN 21 H Creatinine 1.38 H Estimated GFR 50 L POC Glucose Random Glucose 86 Hemoglobin A1c Lactic Acid Calcium 7.1 L* Prot Corrected Calcium 8.3 L Phosphorus Magnesium Total Bilirubin Direct Bilirubin Indirect Bilirubin AST ALT Alkaline Phosphatase Ammonia Total Creatine Kinase Troponin I C-Reactive Protein B-Natriuretic Peptide Total Protein 4.9 L Albumin Prealbumin Triglycerides Cholesterol LDL Cholesterol HDL Cholesterol Cholesterol/HDL Ratio Thiamine Vitamin B12 Procalcitonin Free T4 TSH 3rd Generation Urine Color LIGHT-YELLOW Urine Clarity Urine Turbidity CLEAR Urine pH 7.0 Ur Specific [place] 1.006 Urine Protein TRACE Urine Glucose (UA) NEG Urine Ketones NEG Urine Occult Blood SMALL H Urine Nitrate Urine Nitrite NEG Urine Bilirubin NEG Urine Urobilinogen LESS THAN 2.0 Ur Leukocyte Esterase NEG Urine RBC 1 Urine WBC LESS THAN 1 Urine WBC Clumps Ur Squamous Epith Cells Ur Transition Epith Cell Ur Renal Epithelial Cell Amorphous Sediment Urine Bacteria Hyaline Casts Granular Casts Urine Mucus Micro UA Comment CULT NOT INDICATED Urine Culture Comments Urine Eosinophils Urine Osmolality Ur Random Creatinine Ur Random Sodium Pleural pH Pleural WBC Pleural Nuc Cells Pleural RBC Pleural Neutrophils Pleural Eosinophils Pleural Lymphocytes Pleural Monocytes Pleural Histocytes Pleural Mesothelial Pleural Total Protein Pleural Amylase Pleural LDH Pleural Glucose Nasal Screen MRSA (PCR) Stl C.difficile Tox PCR St C. diff Tox Epid 027 Vancomycin Trough Random Vancomycin Phenytoin Free Phenytoin LOWELL Screen RPR Blood Type Antibody Screen MTS Gel Crossmatch Blood Bank Comment 11/18/17 11/18/17 11/18/17 06:47 06:47 06:47 WBC 4.7 RBC 2.99 L Hgb 8.7 L Hct 25.8 L MCV 86.4 MCH 29.0 MCHC 33.6 RDW 14.8 Plt Count 159 MPV 8.1 Prelim Diff (Auto) Neut % (Auto) Lymph % (Auto) [place] % (Auto) Eos % (Auto) Baso % (Auto) Neut # (Auto) Lymph # (Auto) [place] # (Auto) Eos # (Auto) Baso # (Auto) CBC Comment WBC Differential Total Counted Neutrophils % (Manual) Seg Neuts % (Manual) Band Neutrophils % Band Neuts % (Manual) Lymphocytes % Lymphocytes % (Manual) Monocytes % Monocytes % (Manual) Eosinophils % Eosinophils % (Manual) Basophils % Metamyelocytes % (Man) Neutrophils # (Manual) Abs Neuts (Manual) Metamyelocytes Myelocytes Nucleated RBCs Differential Comment Smudge Cells Toxic Granulation Toxic Vacuolation Dohle Bodies Platelet Estimate Platelet Morphology Plt Morphology Comment Basophilic Stippling Spherocytes Tear Drop Cells Ovalocytes Acanthocytes (Spur) RBC Morph Comment ESR Hematology Comments PT INR APTT Fibrinogen Puncture Site Patient Temperature HCO3 Base Excess O2 Saturation ABG pH ABG pCO2 ABG pO2 ABG HCO3 ABG O2 Content ABG Base Excess ABG Carboxyhemoglobin ABG Methemoglobin Stepan Test Hemoglobin Carboxyhemoglobin O2 Delivery Device Liter Flow Vent Setting Inspired O2 Critical Value Sodium 138 Potassium 3.1 L Chloride 100 Carbon Dioxide 28.3 Anion Gap 10 BUN 22 H Creatinine 1.57 H Estimated GFR 43 L POC Glucose Random Glucose 141 H Hemoglobin A1c Lactic Acid Calcium 7.6 L Prot Corrected Calcium Phosphorus 2.5 Magnesium 1.8 Total Bilirubin Direct Bilirubin Indirect Bilirubin AST ALT Alkaline Phosphatase Ammonia Total Creatine Kinase Troponin I 0.07 H C-Reactive Protein B-Natriuretic Peptide Total Protein Albumin Prealbumin Triglycerides Cholesterol LDL Cholesterol HDL Cholesterol Cholesterol/HDL Ratio Thiamine Vitamin B12 Procalcitonin Free T4 TSH 3rd Generation Urine Color Urine Clarity Urine Turbidity Urine pH Ur Specific [place] Urine Protein Urine Glucose (UA) Urine Ketones Urine Occult Blood Urine Nitrate Urine Nitrite Urine Bilirubin Urine Urobilinogen Ur Leukocyte Esterase Urine RBC Urine WBC Urine WBC Clumps Ur Squamous Epith Cells Ur Transition Epith Cell Ur Renal Epithelial Cell Amorphous Sediment Urine Bacteria Hyaline Casts Granular Casts Urine Mucus Micro UA Comment Urine Culture Comments Urine Eosinophils Urine Osmolality Ur Random Creatinine Ur Random Sodium Pleural pH Pleural WBC Pleural Nuc Cells Pleural RBC Pleural Neutrophils Pleural Eosinophils Pleural Lymphocytes Pleural Monocytes Pleural Histocytes Pleural Mesothelial Pleural Total Protein Pleural Amylase Pleural LDH Pleural Glucose Nasal Screen MRSA (PCR) Stl C.difficile Tox PCR St C. diff Tox Epid 027 Vancomycin Trough Random Vancomycin Phenytoin 6.7 L Free Phenytoin LOWELL Screen RPR Blood Type Antibody Screen MTS Gel Crossmatch Blood Bank Comment 11/18/17 11/18/17 11/18/17 10:25 10:25 10:49 WBC RBC Hgb Hct MCV MCH MCHC RDW Plt Count MPV Prelim Diff (Auto) Neut % (Auto) Lymph % (Auto) [place] % (Auto) Eos % (Auto) Baso % (Auto) Neut # (Auto) Lymph # (Auto) [place] # (Auto) Eos # (Auto) Baso # (Auto) CBC Comment WBC Differential Total Counted Neutrophils % (Manual) Seg Neuts % (Manual) Band Neutrophils % Band Neuts % (Manual) Lymphocytes % Lymphocytes % (Manual) Monocytes % Monocytes % (Manual) Eosinophils % Eosinophils % (Manual) Basophils % Metamyelocytes % (Man) Neutrophils # (Manual) Abs Neuts (Manual) Metamyelocytes Myelocytes Nucleated RBCs Differential Comment Smudge Cells Toxic Granulation Toxic Vacuolation Dohle Bodies Platelet Estimate Platelet Morphology Plt Morphology Comment Basophilic Stippling Spherocytes Tear Drop Cells Ovalocytes Acanthocytes (Spur) RBC Morph Comment ESR Hematology Comments PT INR APTT Fibrinogen Puncture Site Patient Temperature HCO3 Base Excess O2 Saturation ABG pH ABG pCO2 ABG pO2 ABG HCO3 ABG O2 Content ABG Base Excess ABG Carboxyhemoglobin ABG Methemoglobin Stepan Test Hemoglobin Carboxyhemoglobin O2 Delivery Device Liter Flow Vent Setting Inspired O2 Critical Value Sodium Potassium Chloride Carbon Dioxide Anion Gap BUN Creatinine Estimated GFR POC Glucose Random Glucose Hemoglobin A1c Lactic Acid 1.0 Calcium Prot Corrected Calcium Phosphorus Magnesium Total Bilirubin Direct Bilirubin Indirect Bilirubin AST ALT Alkaline Phosphatase Ammonia Total Creatine Kinase Troponin I C-Reactive Protein B-Natriuretic Peptide Total Protein Albumin Prealbumin Triglycerides Cholesterol LDL Cholesterol HDL Cholesterol Cholesterol/HDL Ratio Thiamine Vitamin B12 Procalcitonin 0.48 H Free T4 TSH 3rd Generation Urine Color Urine Clarity Urine Turbidity Urine pH Ur Specific [place] Urine Protein Urine Glucose (UA) Urine Ketones Urine Occult Blood Urine Nitrate Urine Nitrite Urine Bilirubin Urine Urobilinogen Ur Leukocyte Esterase Urine RBC Urine WBC Urine WBC Clumps Ur Squamous Epith Cells Ur Transition Epith Cell Ur Renal Epithelial Cell Amorphous Sediment Urine Bacteria Hyaline Casts Granular Casts Urine Mucus Micro UA Comment Urine Culture Comments Urine Eosinophils NONE SEEN Urine Osmolality Ur Random Creatinine Ur Random Sodium Pleural pH Pleural WBC Pleural Nuc Cells Pleural RBC Pleural Neutrophils Pleural Eosinophils Pleural Lymphocytes Pleural Monocytes Pleural Histocytes Pleural Mesothelial Pleural Total Protein Pleural Amylase Pleural LDH Pleural Glucose Nasal Screen MRSA (PCR) Stl C.difficile Tox PCR St C. diff Tox Epid 027 Vancomycin Trough Random Vancomycin Phenytoin Free Phenytoin LOWELL Screen RPR Blood Type Antibody Screen MTS Gel Crossmatch Blood Bank Comment 11/18/17 11/18/17 11/18/17 10:49 12:28 13:50 WBC RBC Hgb Hct MCV MCH MCHC RDW Plt Count MPV Prelim Diff (Auto) Neut % (Auto) Lymph % (Auto) [place] % (Auto) Eos % (Auto) Baso % (Auto) Neut # (Auto) Lymph # (Auto) [place] # (Auto) Eos # (Auto) Baso # (Auto) CBC Comment WBC Differential Total Counted Neutrophils % (Manual) Seg Neuts % (Manual) Band Neutrophils % Band Neuts % (Manual) Lymphocytes % Lymphocytes % (Manual) Monocytes % Monocytes % (Manual) Eosinophils % Eosinophils % (Manual) Basophils % Metamyelocytes % (Man) Neutrophils # (Manual) Abs Neuts (Manual) Metamyelocytes Myelocytes Nucleated RBCs Differential Comment Smudge Cells Toxic Granulation Toxic Vacuolation Dohle Bodies Platelet Estimate Platelet Morphology Plt Morphology Comment Basophilic Stippling Spherocytes Tear Drop Cells Ovalocytes Acanthocytes (Spur) RBC Morph Comment ESR Hematology Comments PT INR APTT Fibrinogen Puncture Site RT FEMORAL Patient Temperature 98.6 HCO3 27 H Base Excess 3.1 H O2 Saturation 95 ABG pH 7.44 H ABG pCO2 41 ABG pO2 121 H ABG HCO3 ABG O2 Content 12.0 ABG Base Excess ABG Carboxyhemoglobin 0.9 ABG Methemoglobin 1.7 Stepan Test Hemoglobin 8.8 L Carboxyhemoglobin O2 Delivery Device VENTILATOR Liter Flow Vent Setting [id number] Inspired O2 50 Critical Value Sodium Potassium Chloride Carbon Dioxide Anion Gap BUN Creatinine Estimated GFR POC Glucose Random Glucose Hemoglobin A1c Lactic Acid Calcium Prot Corrected Calcium Phosphorus Magnesium Total Bilirubin Direct Bilirubin Indirect Bilirubin AST ALT Alkaline Phosphatase Ammonia Total Creatine Kinase Troponin I C-Reactive Protein B-Natriuretic Peptide Total Protein Albumin Prealbumin Triglycerides Cholesterol LDL Cholesterol HDL Cholesterol Cholesterol/HDL Ratio Thiamine Vitamin B12 Procalcitonin Free T4 TSH 3rd Generation Urine Color LIGHT-YELLOW Urine Clarity Urine Turbidity CLEAR Urine pH 7.0 Ur Specific [place] 1.005 Urine Protein TRACE Urine Glucose (UA) NEG Urine Ketones NEG Urine Occult Blood TRACE H Urine Nitrate Urine Nitrite NEG Urine Bilirubin NEG Urine Urobilinogen LESS THAN 2.0 Ur Leukocyte Esterase NEG Urine RBC 1 Urine WBC LESS THAN 1 Urine WBC Clumps Ur Squamous Epith Cells Ur Transition Epith Cell Ur Renal Epithelial Cell Amorphous Sediment Urine Bacteria Hyaline Casts Granular Casts Urine Mucus FEW H Micro UA Comment CATH-CULT NOT IND Urine Culture Comments Urine Eosinophils Urine Osmolality Ur Random Creatinine Ur Random Sodium Pleural pH Pleural WBC Pleural Nuc Cells Pleural RBC Pleural Neutrophils Pleural Eosinophils Pleural Lymphocytes Pleural Monocytes Pleural Histocytes Pleural Mesothelial Pleural Total Protein Pleural Amylase Pleural LDH Pleural Glucose Nasal Screen MRSA (PCR) Stl C.difficile Tox PCR Cancelled St C. diff Tox Epid 027 Cancelled Vancomycin Trough Random Vancomycin Phenytoin Free Phenytoin LOWELL Screen RPR Blood Type Antibody Screen MTS Gel Crossmatch Blood Bank Comment 11/18/17 11/18/17 11/19/17 13:50 14:32 11:08 WBC RBC Hgb Hct MCV MCH MCHC RDW Plt Count MPV Prelim Diff (Auto) Neut % (Auto) Lymph % (Auto) [place] % (Auto) Eos % (Auto) Baso % (Auto) Neut # (Auto) Lymph # (Auto) [place] # (Auto) Eos # (Auto) Baso # (Auto) CBC Comment WBC Differential Total Counted Neutrophils % (Manual) Seg Neuts % (Manual) Band Neutrophils % Band Neuts % (Manual) Lymphocytes % Lymphocytes % (Manual) Monocytes % Monocytes % (Manual) Eosinophils % Eosinophils % (Manual) Basophils % Metamyelocytes % (Man) Neutrophils # (Manual) Abs Neuts (Manual) Metamyelocytes Myelocytes Nucleated RBCs Differential Comment Smudge Cells Toxic Granulation Toxic Vacuolation Dohle Bodies Platelet Estimate Platelet Morphology Plt Morphology Comment Basophilic Stippling Spherocytes Tear Drop Cells Ovalocytes Acanthocytes (Spur) RBC Morph Comment ESR Hematology Comments PT INR APTT Fibrinogen Puncture Site Patient Temperature HCO3 Base Excess O2 Saturation ABG pH ABG pCO2 ABG pO2 ABG HCO3 ABG O2 Content ABG Base Excess ABG Carboxyhemoglobin ABG Methemoglobin Stepan Test Hemoglobin Carboxyhemoglobin O2 Delivery Device Liter Flow Vent Setting Inspired O2 Critical Value Sodium 136 Potassium 4.0 D Chloride 105 Carbon Dioxide 19.2 L D Anion Gap 12 BUN 21 H Creatinine 1.17 Estimated GFR 60 L POC Glucose Random Glucose 146 H Hemoglobin A1c Lactic Acid Calcium 6.9 L* Prot Corrected Calcium 8.0 L Phosphorus Magnesium 1.8 Total Bilirubin 0.4 Direct Bilirubin Indirect Bilirubin AST 80 H ALT 51 Alkaline Phosphatase 105 Ammonia Total Creatine Kinase 76 Troponin I 0.03 C-Reactive Protein B-Natriuretic Peptide Total Protein 5.0 L Albumin 1.2 L Prealbumin Triglycerides Cholesterol LDL Cholesterol HDL Cholesterol Cholesterol/HDL Ratio Thiamine Vitamin B12 Procalcitonin Free T4 TSH 3rd Generation Urine Color Urine Clarity Urine Turbidity Urine pH Ur Specific [place] Urine Protein Urine Glucose (UA) Urine Ketones Urine Occult Blood Urine Nitrate Urine Nitrite Urine Bilirubin Urine Urobilinogen Ur Leukocyte Esterase Urine RBC Urine WBC Urine WBC Clumps Ur Squamous Epith Cells Ur Transition Epith Cell Ur Renal Epithelial Cell Amorphous Sediment Urine Bacteria Hyaline Casts Granular Casts Urine Mucus Micro UA Comment Urine Culture Comments Urine Eosinophils Urine Osmolality Ur Random Creatinine Ur Random Sodium Pleural pH Pleural WBC Pleural Nuc Cells Pleural RBC Pleural Neutrophils Pleural Eosinophils Pleural Lymphocytes Pleural Monocytes Pleural Histocytes Pleural Mesothelial Pleural Total Protein Pleural Amylase Pleural LDH Pleural Glucose Nasal Screen MRSA (PCR) MRSA NOT DETECTED Stl C.difficile Tox PCR St C. diff Tox Epid 027 Vancomycin Trough Random Vancomycin Phenytoin 7.3 L 9.2 L Free Phenytoin LOWELL Screen RPR Blood Type Antibody Screen MTS Gel Crossmatch Blood Bank Comment 11/19/17 11/20/17 11/20/17 11:08 04:30 10:15 WBC 8.0 RBC 2.96 L Hgb 8.5 L 9.1 L Hct 27.5 L 27.1 L MCV 92.9 D MCH 28.7 MCHC 30.9 L RDW 16.6 Plt Count 177 MPV 8.3 Prelim Diff (Auto) Neut % (Auto) Lymph % (Auto) [place] % (Auto) Eos % (Auto) Baso % (Auto) Neut # (Auto) Lymph # (Auto) [place] # (Auto) Eos # (Auto) Baso # (Auto) CBC Comment AUTO DIFF WBC Differential Total Counted 100 Neutrophils % (Manual) 82 H Seg Neuts % (Manual) Band Neutrophils % 8 H Band Neuts % (Manual) Lymphocytes % 8 L Lymphocytes % (Manual) Monocytes % 1 Monocytes % (Manual) Eosinophils % Eosinophils % (Manual) Basophils % Metamyelocytes % (Man) Neutrophils # (Manual) 7.3 Abs Neuts (Manual) Metamyelocytes Myelocytes 1 H Nucleated RBCs Differential Comment FINAL DIFF MANUAL Smudge Cells Toxic Granulation Toxic Vacuolation Dohle Bodies Platelet Estimate NORMAL Platelet Morphology Plt Morphology Comment NORMAL Basophilic Stippling Spherocytes Tear Drop Cells 1+ H Ovalocytes 1+ H Acanthocytes (Spur) RBC Morph Comment ESR Hematology Comments PT INR APTT Fibrinogen Puncture Site Patient Temperature HCO3 Base Excess O2 Saturation ABG pH ABG pCO2 ABG pO2 ABG HCO3 ABG O2 Content ABG Base Excess ABG Carboxyhemoglobin ABG Methemoglobin Stepan Test Hemoglobin Carboxyhemoglobin O2 Delivery Device Liter Flow Vent Setting Inspired O2 Critical Value Sodium Potassium Chloride Carbon Dioxide Anion Gap BUN Creatinine Estimated GFR POC Glucose Random Glucose Hemoglobin A1c Lactic Acid Calcium Prot Corrected Calcium Phosphorus Magnesium Total Bilirubin Direct Bilirubin Indirect Bilirubin AST ALT Alkaline Phosphatase Ammonia Total Creatine Kinase Troponin I C-Reactive Protein B-Natriuretic Peptide Total Protein Albumin Prealbumin Triglycerides Cholesterol LDL Cholesterol HDL Cholesterol Cholesterol/HDL Ratio Thiamine Vitamin B12 Procalcitonin Free T4 TSH 3rd Generation Urine Color Urine Clarity Urine Turbidity Urine pH Ur Specific [place] Urine Protein Urine Glucose (UA) Urine Ketones Urine Occult Blood Urine Nitrate Urine Nitrite Urine Bilirubin Urine Urobilinogen Ur Leukocyte Esterase Urine RBC Urine WBC Urine WBC Clumps Ur Squamous Epith Cells Ur Transition Epith Cell Ur Renal Epithelial Cell Amorphous Sediment Urine Bacteria Hyaline Casts Granular Casts Urine Mucus Micro UA Comment Urine Culture Comments Urine Eosinophils Urine Osmolality Ur Random Creatinine Ur Random Sodium Pleural pH Pleural WBC Pleural Nuc Cells Pleural RBC Pleural Neutrophils Pleural Eosinophils Pleural Lymphocytes Pleural Monocytes Pleural Histocytes Pleural Mesothelial Pleural Total Protein Pleural Amylase Pleural LDH Pleural Glucose Nasal Screen MRSA (PCR) Stl C.difficile Tox PCR St C. diff Tox Epid 027 Vancomycin Trough Random Vancomycin Phenytoin 8.1 L Free Phenytoin LOWELL Screen RPR Blood Type Antibody Screen MTS Gel Crossmatch Blood Bank Comment 11/20/17 11/20/17 11/20/17 11:18 11:18 11:18 WBC RBC Hgb Hct MCV MCH MCHC RDW Plt Count MPV Prelim Diff (Auto) Neut % (Auto) Lymph % (Auto) [place] % (Auto) Eos % (Auto) Baso % (Auto) Neut # (Auto) Lymph # (Auto) [place] # (Auto) Eos # (Auto) Baso # (Auto) CBC Comment WBC Differential Total Counted Neutrophils % (Manual) Seg Neuts % (Manual) Band Neutrophils % Band Neuts % (Manual) Lymphocytes % Lymphocytes % (Manual) Monocytes % Monocytes % (Manual) Eosinophils % Eosinophils % (Manual) Basophils % Metamyelocytes % (Man) Neutrophils # (Manual) Abs Neuts (Manual) Metamyelocytes Myelocytes Nucleated RBCs Differential Comment Smudge Cells Toxic Granulation Toxic Vacuolation Dohle Bodies Platelet Estimate Platelet Morphology Plt Morphology Comment Basophilic Stippling Spherocytes Tear Drop Cells Ovalocytes Acanthocytes (Spur) RBC Morph Comment ESR Hematology Comments PT 13.4 H INR 1.3 APTT Fibrinogen 226 L Puncture Site Patient Temperature HCO3 Base Excess O2 Saturation ABG pH ABG pCO2 ABG pO2 ABG HCO3 ABG O2 Content ABG Base Excess ABG Carboxyhemoglobin ABG Methemoglobin Stepan Test Hemoglobin Carboxyhemoglobin O2 Delivery Device Liter Flow Vent Setting Inspired O2 Critical Value Sodium 140 Potassium 3.1 L D Chloride 108 H Carbon Dioxide 19.8 L Anion Gap 12 BUN 24 H Creatinine 1.07 Estimated GFR 67 L POC Glucose Random Glucose 173 H Hemoglobin A1c Lactic Acid Calcium 6.4 L* Prot Corrected Calcium 7.8 L Phosphorus 2.8 Magnesium Total Bilirubin Direct Bilirubin Indirect Bilirubin AST ALT Alkaline Phosphatase Ammonia Total Creatine Kinase Troponin I C-Reactive Protein B-Natriuretic Peptide Total Protein 4.3 L D Albumin Prealbumin Triglycerides Cholesterol LDL Cholesterol HDL Cholesterol Cholesterol/HDL Ratio Thiamine Vitamin B12 Procalcitonin Free T4 TSH 3rd Generation Urine Color Urine Clarity Urine Turbidity Urine pH Ur Specific [place] Urine Protein Urine Glucose (UA) Urine Ketones Urine Occult Blood Urine Nitrate Urine Nitrite Urine Bilirubin Urine Urobilinogen Ur Leukocyte Esterase Urine RBC Urine WBC Urine WBC Clumps Ur Squamous Epith Cells Ur Transition Epith Cell Ur Renal Epithelial Cell Amorphous Sediment Urine Bacteria Hyaline Casts Granular Casts Urine Mucus Micro UA Comment Urine Culture Comments Urine Eosinophils Urine Osmolality Ur Random Creatinine Ur Random Sodium Pleural pH Pleural WBC Pleural Nuc Cells Pleural RBC Pleural Neutrophils Pleural Eosinophils Pleural Lymphocytes Pleural Monocytes Pleural Histocytes Pleural Mesothelial Pleural Total Protein Pleural Amylase Pleural LDH Pleural Glucose Nasal Screen MRSA (PCR) Stl C.difficile Tox PCR St C. diff Tox Epid 027 Vancomycin Trough Random Vancomycin Phenytoin Free Phenytoin LOWELL Screen RPR Blood Type Antibody Screen MTS Gel Crossmatch Blood Bank Comment 11/20/17 11/20/17 11/21/17 16:55 20:55 03:25 WBC RBC Hgb 6.5 L* D 6.7 L* Hct 20.1 L* 21.1 L MCV MCH MCHC RDW Plt Count MPV Prelim Diff (Auto) Neut % (Auto) Lymph % (Auto) [place] % (Auto) Eos % (Auto) Baso % (Auto) Neut # (Auto) Lymph # (Auto) [place] # (Auto) Eos # (Auto) Baso # (Auto) CBC Comment WBC Differential Total Counted Neutrophils % (Manual) Seg Neuts % (Manual) Band Neutrophils % Band Neuts % (Manual) Lymphocytes % Lymphocytes % (Manual) Monocytes % Monocytes % (Manual) Eosinophils % Eosinophils % (Manual) Basophils % Metamyelocytes % (Man) Neutrophils # (Manual) Abs Neuts (Manual) Metamyelocytes Myelocytes Nucleated RBCs Differential Comment Smudge Cells Toxic Granulation Toxic Vacuolation Dohle Bodies Platelet Estimate Platelet Morphology Plt Morphology Comment Basophilic Stippling Spherocytes Tear Drop Cells Ovalocytes Acanthocytes (Spur) RBC Morph Comment ESR Hematology Comments PT INR APTT Fibrinogen Puncture Site Patient Temperature HCO3 Base Excess O2 Saturation ABG pH ABG pCO2 ABG pO2 ABG HCO3 ABG O2 Content ABG Base Excess ABG Carboxyhemoglobin ABG Methemoglobin Stepan Test Hemoglobin Carboxyhemoglobin O2 Delivery Device Liter Flow Vent Setting Inspired O2 Critical Value Sodium 141 Potassium 3.1 L Chloride 105 Carbon Dioxide 20.2 L Anion Gap 16 H BUN 26 H Creatinine 1.34 H Estimated GFR 52 L POC Glucose Random Glucose 212 H Hemoglobin A1c Lactic Acid Calcium 6.4 L* Prot Corrected Calcium 7.8 L Phosphorus 4.2 D Magnesium 1.6 Total Bilirubin Direct Bilirubin Indirect Bilirubin AST ALT Alkaline Phosphatase Ammonia Total Creatine Kinase Troponin I C-Reactive Protein B-Natriuretic Peptide Total Protein 4.3 L Albumin Prealbumin Triglycerides Cholesterol LDL Cholesterol HDL Cholesterol Cholesterol/HDL Ratio Thiamine Vitamin B12 Procalcitonin Free T4 TSH 3rd Generation Urine Color Urine Clarity Urine Turbidity Urine pH Ur Specific [place] Urine Protein Urine Glucose (UA) Urine Ketones Urine Occult Blood Urine Nitrate Urine Nitrite Urine Bilirubin Urine Urobilinogen Ur Leukocyte Esterase Urine RBC Urine WBC Urine WBC Clumps Ur Squamous Epith Cells Ur Transition Epith Cell Ur Renal Epithelial Cell Amorphous Sediment Urine Bacteria Hyaline Casts Granular Casts Urine Mucus Micro UA Comment Urine Culture Comments Urine Eosinophils Urine Osmolality Ur Random Creatinine Ur Random Sodium Pleural pH Pleural WBC Pleural Nuc Cells Pleural RBC Pleural Neutrophils Pleural Eosinophils Pleural Lymphocytes Pleural Monocytes Pleural Histocytes Pleural Mesothelial Pleural Total Protein Pleural Amylase Pleural LDH Pleural Glucose Nasal Screen MRSA (PCR) Stl C.difficile Tox PCR St C. diff Tox Epid 027 Vancomycin Trough Random Vancomycin Phenytoin 6.3 L Free Phenytoin LOWELL Screen RPR Blood Type Antibody Screen MTS Gel Crossmatch Blood Bank Comment 11/21/17 11/21/17 11/21/17 03:25 03:25 09:36 WBC 11.1 H RBC 2.77 L Hgb 8.1 L 8.5 L Hct 23.7 L 26.0 L MCV 85.5 D MCH 29.1 MCHC 34.0 RDW 16.7 Plt Count 198 MPV 8.5 Prelim Diff (Auto) Neut % (Auto) Lymph % (Auto) [place] % (Auto) Eos % (Auto) Baso % (Auto) Neut # (Auto) Lymph # (Auto) [place] # (Auto) Eos # (Auto) Baso # (Auto) CBC Comment WBC Differential Total Counted Neutrophils % (Manual) Seg Neuts % (Manual) Band Neutrophils % Band Neuts % (Manual) Lymphocytes % Lymphocytes % (Manual) Monocytes % Monocytes % (Manual) Eosinophils % Eosinophils % (Manual) Basophils % Metamyelocytes % (Man) Neutrophils # (Manual) Abs Neuts (Manual) Metamyelocytes Myelocytes Nucleated RBCs Differential Comment Smudge Cells Toxic Granulation Toxic Vacuolation Dohle Bodies Platelet Estimate Platelet Morphology Plt Morphology Comment Basophilic Stippling Spherocytes Tear Drop Cells Ovalocytes Acanthocytes (Spur) RBC Morph Comment ESR Hematology Comments PT INR APTT Fibrinogen Puncture Site Patient Temperature HCO3 Base Excess O2 Saturation ABG pH ABG pCO2 ABG pO2 ABG HCO3 ABG O2 Content ABG Base Excess ABG Carboxyhemoglobin ABG Methemoglobin Stepan Test Hemoglobin Carboxyhemoglobin O2 Delivery Device Liter Flow Vent Setting Inspired O2 Critical Value Sodium Potassium Chloride Carbon Dioxide Anion Gap BUN Creatinine Estimated GFR POC Glucose Random Glucose Hemoglobin A1c Lactic Acid Calcium Prot Corrected Calcium Phosphorus Magnesium Total Bilirubin Direct Bilirubin Indirect Bilirubin AST ALT Alkaline Phosphatase Ammonia Total Creatine Kinase Troponin I C-Reactive Protein B-Natriuretic Peptide 592 H Total Protein Albumin Prealbumin Triglycerides Cholesterol LDL Cholesterol HDL Cholesterol Cholesterol/HDL Ratio Thiamine Vitamin B12 Procalcitonin Free T4 TSH 3rd Generation Urine Color Urine Clarity Urine Turbidity Urine pH Ur Specific [place] Urine Protein Urine Glucose (UA) Urine Ketones Urine Occult Blood Urine Nitrate Urine Nitrite Urine Bilirubin Urine Urobilinogen Ur Leukocyte Esterase Urine RBC Urine WBC Urine WBC Clumps Ur Squamous Epith Cells Ur Transition Epith Cell Ur Renal Epithelial Cell Amorphous Sediment Urine Bacteria Hyaline Casts Granular Casts Urine Mucus Micro UA Comment Urine Culture Comments Urine Eosinophils Urine Osmolality Ur Random Creatinine Ur Random Sodium Pleural pH Pleural WBC Pleural Nuc Cells Pleural RBC Pleural Neutrophils Pleural Eosinophils Pleural Lymphocytes Pleural Monocytes Pleural Histocytes Pleural Mesothelial Pleural Total Protein Pleural Amylase Pleural LDH Pleural Glucose Nasal Screen MRSA (PCR) Stl C.difficile Tox PCR St C. diff Tox Epid 027 Vancomycin Trough Random Vancomycin Phenytoin Free Phenytoin LOWELL Screen RPR Blood Type Antibody Screen MTS Gel Crossmatch Blood Bank Comment 11/21/17 11/21/17 11/21/17 15:25 15:25 20:57 WBC RBC Hgb 8.5 L 8.2 L Hct 24.9 L 24.3 L MCV MCH MCHC RDW Plt Count MPV Prelim Diff (Auto) Neut % (Auto) Lymph % (Auto) [place] % (Auto) Eos % (Auto) Baso % (Auto) Neut # (Auto) Lymph # (Auto) [place] # (Auto) Eos # (Auto) Baso # (Auto) CBC Comment WBC Differential Total Counted Neutrophils % (Manual) Seg Neuts % (Manual) Band Neutrophils % Band Neuts % (Manual) Lymphocytes % Lymphocytes % (Manual) Monocytes % Monocytes % (Manual) Eosinophils % Eosinophils % (Manual) Basophils % Metamyelocytes % (Man) Neutrophils # (Manual) Abs Neuts (Manual) Metamyelocytes Myelocytes Nucleated RBCs Differential Comment Smudge Cells Toxic Granulation Toxic Vacuolation Dohle Bodies Platelet Estimate Platelet Morphology Plt Morphology Comment Basophilic Stippling Spherocytes Tear Drop Cells Ovalocytes Acanthocytes (Spur) RBC Morph Comment ESR Hematology Comments PT INR APTT Fibrinogen Puncture Site Patient Temperature HCO3 Base Excess O2 Saturation ABG pH ABG pCO2 ABG pO2 ABG HCO3 ABG O2 Content ABG Base Excess ABG Carboxyhemoglobin ABG Methemoglobin Stepan Test Hemoglobin Carboxyhemoglobin O2 Delivery Device Liter Flow Vent Setting Inspired O2 Critical Value Sodium 143 Potassium 3.5 Chloride 107 Carbon Dioxide 20.7 L Anion Gap 15 BUN 26 H Creatinine 1.58 H Estimated GFR 43 L POC Glucose Random Glucose 173 H Hemoglobin A1c Lactic Acid Calcium 6.7 L* Prot Corrected Calcium 8.0 L Phosphorus Magnesium Total Bilirubin Direct Bilirubin Indirect Bilirubin AST ALT Alkaline Phosphatase Ammonia Total Creatine Kinase Troponin I C-Reactive Protein B-Natriuretic Peptide Total Protein 4.6 L Albumin Prealbumin Triglycerides Cholesterol LDL Cholesterol HDL Cholesterol Cholesterol/HDL Ratio Thiamine Vitamin B12 Procalcitonin Free T4 TSH 3rd Generation Urine Color Urine Clarity Urine Turbidity Urine pH Ur Specific [place] Urine Protein Urine Glucose (UA) Urine Ketones Urine Occult Blood Urine Nitrate Urine Nitrite Urine Bilirubin Urine Urobilinogen Ur Leukocyte Esterase Urine RBC Urine WBC Urine WBC Clumps Ur Squamous Epith Cells Ur Transition Epith Cell Ur Renal Epithelial Cell Amorphous Sediment Urine Bacteria Hyaline Casts Granular Casts Urine Mucus Micro UA Comment Urine Culture Comments Urine Eosinophils Urine Osmolality Ur Random Creatinine Ur Random Sodium Pleural pH Pleural WBC Pleural Nuc Cells Pleural RBC Pleural Neutrophils Pleural Eosinophils Pleural Lymphocytes Pleural Monocytes Pleural Histocytes Pleural Mesothelial Pleural Total Protein Pleural Amylase Pleural LDH Pleural Glucose Nasal Screen MRSA (PCR) Stl C.difficile Tox PCR St C. diff Tox Epid 027 Vancomycin Trough Random Vancomycin Phenytoin Free Phenytoin LOWELL Screen RPR Blood Type Antibody Screen MTS Gel Crossmatch Blood Bank Comment 11/22/17 11/22/17 11/22/17 03:22 03:40 07:30 WBC 8.0 RBC 2.63 L Hgb 7.8 L 7.5 L Hct 22.8 L 22.2 L MCV 84.6 MCH 28.7 MCHC 33.9 RDW 16.6 Plt Count 230 MPV 8.3 Prelim Diff (Auto) Neut % (Auto) 79.3 H Lymph % (Auto) 14.7 [place] % (Auto) 5.3 Eos % (Auto) 0.5 Baso % (Auto) 0.2 Neut # (Auto) 6.4 Lymph # (Auto) 1.2 [place] # (Auto) 0.4 Eos # (Auto) 0.0 Baso # (Auto) 0.0 CBC Comment DIFF FINAL WBC Differential Total Counted Neutrophils % (Manual) Seg Neuts % (Manual) Band Neutrophils % Band Neuts % (Manual) Lymphocytes % Lymphocytes % (Manual) Monocytes % Monocytes % (Manual) Eosinophils % Eosinophils % (Manual) Basophils % Metamyelocytes % (Man) Neutrophils # (Manual) Abs Neuts (Manual) Metamyelocytes Myelocytes Nucleated RBCs Differential Comment Smudge Cells Toxic Granulation Toxic Vacuolation Dohle Bodies Platelet Estimate Platelet Morphology Plt Morphology Comment Basophilic Stippling Spherocytes Tear Drop Cells Ovalocytes Acanthocytes (Spur) RBC Morph Comment ESR Hematology Comments PT INR APTT Fibrinogen Puncture Site Patient Temperature HCO3 Base Excess O2 Saturation ABG pH ABG pCO2 ABG pO2 ABG HCO3 ABG O2 Content ABG Base Excess ABG Carboxyhemoglobin ABG Methemoglobin Stepan Test Hemoglobin Carboxyhemoglobin O2 Delivery Device Liter Flow Vent Setting Inspired O2 Critical Value Sodium 143 Potassium 3.6 Chloride 108 H Carbon Dioxide 22.1 Anion Gap 13 BUN 27 H Creatinine 1.50 H Estimated GFR 45 L POC Glucose Random Glucose 169 H Hemoglobin A1c Lactic Acid Calcium 6.9 L* Prot Corrected Calcium 8.3 L Phosphorus 3.1 D Magnesium 2.1 Total Bilirubin Direct Bilirubin Indirect Bilirubin AST ALT Alkaline Phosphatase Ammonia Total Creatine Kinase Troponin I C-Reactive Protein B-Natriuretic Peptide Total Protein 4.5 L Albumin Prealbumin Triglycerides Cholesterol LDL Cholesterol HDL Cholesterol Cholesterol/HDL Ratio Thiamine Vitamin B12 Procalcitonin Free T4 TSH 3rd Generation Urine Color Urine Clarity Urine Turbidity Urine pH Ur Specific [place] Urine Protein Urine Glucose (UA) Urine Ketones Urine Occult Blood Urine Nitrate Urine Nitrite Urine Bilirubin Urine Urobilinogen Ur Leukocyte Esterase Urine RBC Urine WBC Urine WBC Clumps Ur Squamous Epith Cells Ur Transition Epith Cell Ur Renal Epithelial Cell Amorphous Sediment Urine Bacteria Hyaline Casts Granular Casts Urine Mucus Micro UA Comment Urine Culture Comments Urine Eosinophils Urine Osmolality Ur Random Creatinine Ur Random Sodium Pleural pH Pleural WBC Pleural Nuc Cells Pleural RBC Pleural Neutrophils Pleural Eosinophils Pleural Lymphocytes Pleural Monocytes Pleural Histocytes Pleural Mesothelial Pleural Total Protein Pleural Amylase Pleural LDH Pleural Glucose Nasal Screen MRSA (PCR) Stl C.difficile Tox PCR St C. diff Tox Epid 027 Vancomycin Trough Random Vancomycin Phenytoin 7.2 L Free Phenytoin LOWELL Screen RPR Blood Type Antibody Screen MTS Gel Crossmatch Blood Bank Comment 11/22/17 11/22/17 11/22/17 13:40 13:40 13:40 WBC RBC Hgb 9.0 L Hct 26.0 L MCV MCH MCHC RDW Plt Count MPV Prelim Diff (Auto) Neut % (Auto) Lymph % (Auto) [place] % (Auto) Eos % (Auto) Baso % (Auto) Neut # (Auto) Lymph # (Auto) [place] # (Auto) Eos # (Auto) Baso # (Auto) CBC Comment WBC Differential Total Counted Neutrophils % (Manual) Seg Neuts % (Manual) Band Neutrophils % Band Neuts % (Manual) Lymphocytes % Lymphocytes % (Manual) Monocytes % Monocytes % (Manual) Eosinophils % Eosinophils % (Manual) Basophils % Metamyelocytes % (Man) Neutrophils # (Manual) Abs Neuts (Manual) Metamyelocytes Myelocytes Nucleated RBCs Differential Comment Smudge Cells Toxic Granulation Toxic Vacuolation Dohle Bodies Platelet Estimate Platelet Morphology Plt Morphology Comment Basophilic Stippling Spherocytes Tear Drop Cells Ovalocytes Acanthocytes (Spur) RBC Morph Comment ESR Hematology Comments PT 12.6 H INR 1.2 APTT Fibrinogen Puncture Site Patient Temperature HCO3 Base Excess O2 Saturation ABG pH ABG pCO2 ABG pO2 ABG HCO3 ABG O2 Content ABG Base Excess ABG Carboxyhemoglobin ABG Methemoglobin Stepan Test Hemoglobin Carboxyhemoglobin O2 Delivery Device Liter Flow Vent Setting Inspired O2 Critical Value Sodium Potassium Chloride Carbon Dioxide Anion Gap BUN Creatinine Estimated GFR POC Glucose Random Glucose Hemoglobin A1c Lactic Acid Calcium Prot Corrected Calcium Phosphorus Magnesium Total Bilirubin Direct Bilirubin Indirect Bilirubin AST ALT Alkaline Phosphatase Ammonia Total Creatine Kinase Troponin I C-Reactive Protein B-Natriuretic Peptide 392 H Total Protein Albumin Prealbumin Triglycerides Cholesterol LDL Cholesterol HDL Cholesterol Cholesterol/HDL Ratio Thiamine Vitamin B12 Procalcitonin Free T4 TSH 3rd Generation Urine Color Urine Clarity Urine Turbidity Urine pH Ur Specific [place] Urine Protein Urine Glucose (UA) Urine Ketones Urine Occult Blood Urine Nitrate Urine Nitrite Urine Bilirubin Urine Urobilinogen Ur Leukocyte Esterase Urine RBC Urine WBC Urine WBC Clumps Ur Squamous Epith Cells Ur Transition Epith Cell Ur Renal Epithelial Cell Amorphous Sediment Urine Bacteria Hyaline Casts Granular Casts Urine Mucus Micro UA Comment Urine Culture Comments Urine Eosinophils Urine Osmolality Ur Random Creatinine Ur Random Sodium Pleural pH Pleural WBC Pleural Nuc Cells Pleural RBC Pleural Neutrophils Pleural Eosinophils Pleural Lymphocytes Pleural Monocytes Pleural Histocytes Pleural Mesothelial Pleural Total Protein Pleural Amylase Pleural LDH Pleural Glucose Nasal Screen MRSA (PCR) Stl C.difficile Tox PCR St C. diff Tox Epid 027 Vancomycin Trough Random Vancomycin Phenytoin Free Phenytoin LOWELL Screen RPR Blood Type Antibody Screen MTS Gel Crossmatch Blood Bank Comment 11/22/17 11/22/17 11/22/17 13:50 15:13 19:33 WBC RBC Hgb Hct MCV MCH MCHC RDW Plt Count MPV Prelim Diff (Auto) Neut % (Auto) Lymph % (Auto) [place] % (Auto) Eos % (Auto) Baso % (Auto) Neut # (Auto) Lymph # (Auto) [place] # (Auto) Eos # (Auto) Baso # (Auto) CBC Comment WBC Differential Total Counted Neutrophils % (Manual) Seg Neuts % (Manual) Band Neutrophils % Band Neuts % (Manual) Lymphocytes % Lymphocytes % (Manual) Monocytes % Monocytes % (Manual) Eosinophils % Eosinophils % (Manual) Basophils % Metamyelocytes % (Man) Neutrophils # (Manual) Abs Neuts (Manual) Metamyelocytes Myelocytes Nucleated RBCs Differential Comment Smudge Cells Toxic Granulation Toxic Vacuolation Dohle Bodies Platelet Estimate Platelet Morphology Plt Morphology Comment Basophilic Stippling Spherocytes Tear Drop Cells Ovalocytes Acanthocytes (Spur) RBC Morph Comment ESR Hematology Comments PT INR APTT Fibrinogen Puncture Site RT BRACHIAL Patient Temperature 98.6 HCO3 23 Base Excess -0.2 O2 Saturation 95 ABG pH 7.45 H ABG pCO2 34 L ABG pO2 109 ABG HCO3 ABG O2 Content 15.9 ABG Base Excess ABG Carboxyhemoglobin 1.3 ABG Methemoglobin 1.6 Stepan Test Hemoglobin 11.8 L Carboxyhemoglobin O2 Delivery Device VENTILATOR Liter Flow Vent Setting CPAP 15/+8/35% Inspired O2 35 Critical Value Sodium Potassium Chloride Carbon Dioxide Anion Gap BUN Creatinine Estimated GFR POC Glucose Random Glucose Hemoglobin A1c Lactic Acid Calcium Prot Corrected Calcium Phosphorus Magnesium Total Bilirubin Direct Bilirubin Indirect Bilirubin AST ALT Alkaline Phosphatase Ammonia 22 Total Creatine Kinase Troponin I C-Reactive Protein B-Natriuretic Peptide Total Protein Albumin Prealbumin Triglycerides Cholesterol LDL Cholesterol HDL Cholesterol Cholesterol/HDL Ratio Thiamine Vitamin B12 1006 H Procalcitonin Free T4 0.95 TSH 3rd Generation 2.210 Urine Color Urine Clarity Urine Turbidity Urine pH Ur Specific [place] Urine Protein Urine Glucose (UA) Urine Ketones Urine Occult Blood Urine Nitrate Urine Nitrite Urine Bilirubin Urine Urobilinogen Ur Leukocyte Esterase Urine RBC Urine WBC Urine WBC Clumps Ur Squamous Epith Cells Ur Transition Epith Cell Ur Renal Epithelial Cell Amorphous Sediment Urine Bacteria Hyaline Casts Granular Casts Urine Mucus Micro UA Comment Urine Culture Comments Urine Eosinophils Urine Osmolality Ur Random Creatinine Ur Random Sodium Pleural pH Pleural WBC Pleural Nuc Cells Pleural RBC Pleural Neutrophils Pleural Eosinophils Pleural Lymphocytes Pleural Monocytes Pleural Histocytes Pleural Mesothelial Pleural Total Protein Pleural Amylase Pleural LDH Pleural Glucose Nasal Screen MRSA (PCR) Stl C.difficile Tox PCR St C. diff Tox Epid 027 Vancomycin Trough Random Vancomycin Phenytoin Free Phenytoin LOWELL Screen RPR Blood Type Antibody Screen MTS Gel Crossmatch Blood Bank Comment 11/22/17 11/23/17 11/23/17 19:33 04:20 04:20 WBC RBC Hgb Hct MCV MCH MCHC RDW Plt Count MPV Prelim Diff (Auto) Neut % (Auto) Lymph % (Auto) [place] % (Auto) Eos % (Auto) Baso % (Auto) Neut # (Auto) Lymph # (Auto) [place] # (Auto) Eos # (Auto) Baso # (Auto) CBC Comment WBC Differential Total Counted Neutrophils % (Manual) Seg Neuts % (Manual) Band Neutrophils % Band Neuts % (Manual) Lymphocytes % Lymphocytes % (Manual) Monocytes % Monocytes % (Manual) Eosinophils % Eosinophils % (Manual) Basophils % Metamyelocytes % (Man) Neutrophils # (Manual) Abs Neuts (Manual) Metamyelocytes Myelocytes Nucleated RBCs Differential Comment Smudge Cells Toxic Granulation Toxic Vacuolation Dohle Bodies Platelet Estimate Platelet Morphology Plt Morphology Comment Basophilic Stippling Spherocytes Tear Drop Cells Ovalocytes Acanthocytes (Spur) RBC Morph Comment ESR Hematology Comments PT INR APTT Fibrinogen Puncture Site Patient Temperature HCO3 Base Excess O2 Saturation ABG pH ABG pCO2 ABG pO2 ABG HCO3 ABG O2 Content ABG Base Excess ABG Carboxyhemoglobin ABG Methemoglobin Stepan Test Hemoglobin Carboxyhemoglobin O2 Delivery Device Liter Flow Vent Setting Inspired O2 Critical Value Sodium Potassium Chloride Carbon Dioxide Anion Gap BUN Creatinine Estimated GFR POC Glucose Random Glucose Hemoglobin A1c Lactic Acid Calcium Prot Corrected Calcium Phosphorus 2.3 L Magnesium 2.1 Total Bilirubin Direct Bilirubin Indirect Bilirubin AST ALT Alkaline Phosphatase Ammonia Total Creatine Kinase Troponin I C-Reactive Protein B-Natriuretic Peptide 558 H Total Protein Albumin Prealbumin Triglycerides Cholesterol LDL Cholesterol HDL Cholesterol Cholesterol/HDL Ratio Thiamine 107 Vitamin B12 Procalcitonin Free T4 TSH 3rd Generation Urine Color Urine Clarity Urine Turbidity Urine pH Ur Specific [place] Urine Protein Urine Glucose (UA) Urine Ketones Urine Occult Blood Urine Nitrate Urine Nitrite Urine Bilirubin Urine Urobilinogen Ur Leukocyte Esterase Urine RBC Urine WBC Urine WBC Clumps Ur Squamous Epith Cells Ur Transition Epith Cell Ur Renal Epithelial Cell Amorphous Sediment Urine Bacteria Hyaline Casts Granular Casts Urine Mucus Micro UA Comment Urine Culture Comments Urine Eosinophils Urine Osmolality Ur Random Creatinine Ur Random Sodium Pleural pH Pleural WBC Pleural Nuc Cells Pleural RBC Pleural Neutrophils Pleural Eosinophils Pleural Lymphocytes Pleural Monocytes Pleural Histocytes Pleural Mesothelial Pleural Total Protein Pleural Amylase Pleural LDH Pleural Glucose Nasal Screen MRSA (PCR) Stl C.difficile Tox PCR St C. diff Tox Epid 027 Vancomycin Trough Random Vancomycin Phenytoin 5.1 L Free Phenytoin LOWELL Screen RPR Blood Type Antibody Screen MTS Gel Crossmatch Blood Bank Comment 11/23/17 11/23/17 11/23/17 04:20 04:20 08:53 WBC 7.5 RBC 3.02 L Hgb 8.9 L Hct 26.2 L MCV 86.7 MCH 29.5 MCHC 34.0 RDW 16.8 Plt Count 233 MPV 8.6 Prelim Diff (Auto) Neut % (Auto) 68.8 Lymph % (Auto) 25.7 [place] % (Auto) 4.9 Eos % (Auto) 0.3 Baso % (Auto) 0.3 Neut # (Auto) 5.1 Lymph # (Auto) 1.9 [place] # (Auto) 0.4 Eos # (Auto) 0.0 Baso # (Auto) 0.0 CBC Comment DIFF FINAL WBC Differential Total Counted Neutrophils % (Manual) Seg Neuts % (Manual) Band Neutrophils % Band Neuts % (Manual) Lymphocytes % Lymphocytes % (Manual) Monocytes % Monocytes % (Manual) Eosinophils % Eosinophils % (Manual) Basophils % Metamyelocytes % (Man) Neutrophils # (Manual) Abs Neuts (Manual) Metamyelocytes Myelocytes Nucleated RBCs Differential Comment Smudge Cells Toxic Granulation Toxic Vacuolation Dohle Bodies Platelet Estimate Platelet Morphology Plt Morphology Comment Basophilic Stippling Spherocytes Tear Drop Cells Ovalocytes Acanthocytes (Spur) RBC Morph Comment ESR Hematology Comments PT 12.0 H INR 1.2 APTT 28.5 Fibrinogen Puncture Site Patient Temperature HCO3 Base Excess O2 Saturation ABG pH ABG pCO2 ABG pO2 ABG HCO3 ABG O2 Content ABG Base Excess ABG Carboxyhemoglobin ABG Methemoglobin Stepan Test Hemoglobin Carboxyhemoglobin O2 Delivery Device Liter Flow Vent Setting Inspired O2 Critical Value Sodium 143 Potassium 3.1 L Chloride 108 H Carbon Dioxide 25.8 Anion Gap 9 BUN 26 H Creatinine 1.34 H Estimated GFR 52 L POC Glucose Random Glucose 217 H Hemoglobin A1c Lactic Acid Calcium 7.4 L* Prot Corrected Calcium 8.6 Phosphorus Magnesium Total Bilirubin Direct Bilirubin Indirect Bilirubin AST ALT Alkaline Phosphatase Ammonia Total Creatine Kinase Troponin I C-Reactive Protein B-Natriuretic Peptide Total Protein 4.9 L Albumin Prealbumin Triglycerides Cholesterol LDL Cholesterol HDL Cholesterol Cholesterol/HDL Ratio Thiamine Vitamin B12 Procalcitonin Free T4 TSH 3rd Generation Urine Color Urine Clarity Urine Turbidity Urine pH Ur Specific [place] Urine Protein Urine Glucose (UA) Urine Ketones Urine Occult Blood Urine Nitrate Urine Nitrite Urine Bilirubin Urine Urobilinogen Ur Leukocyte Esterase Urine RBC Urine WBC Urine WBC Clumps Ur Squamous Epith Cells Ur Transition Epith Cell Ur Renal Epithelial Cell Amorphous Sediment Urine Bacteria Hyaline Casts Granular Casts Urine Mucus Micro UA Comment Urine Culture Comments Urine Eosinophils Urine Osmolality Ur Random Creatinine Ur Random Sodium Pleural pH Pleural WBC Pleural Nuc Cells Pleural RBC Pleural Neutrophils Pleural Eosinophils Pleural Lymphocytes Pleural Monocytes Pleural Histocytes Pleural Mesothelial Pleural Total Protein Pleural Amylase Pleural LDH Pleural Glucose Nasal Screen MRSA (PCR) Stl C.difficile Tox PCR St C. diff Tox Epid 027 Vancomycin Trough Random Vancomycin Phenytoin Free Phenytoin LOWELL Screen RPR Blood Type Antibody Screen MTS Gel Crossmatch Blood Bank Comment 11/23/17 11/23/17 11/23/17 16:38 16:38 16:38 WBC 8.9 RBC 2.98 L Hgb 8.7 L Hct 26.1 L MCV 87.6 MCH 29.2 MCHC 33.3 RDW 16.6 Plt Count 234 MPV 8.8 Prelim Diff (Auto) Neut % (Auto) Lymph % (Auto) [place] % (Auto) Eos % (Auto) Baso % (Auto) Neut # (Auto) Lymph # (Auto) [place] # (Auto) Eos # (Auto) Baso # (Auto) CBC Comment WBC Differential Total Counted Neutrophils % (Manual) Seg Neuts % (Manual) Band Neutrophils % Band Neuts % (Manual) Lymphocytes % Lymphocytes % (Manual) Monocytes % Monocytes % (Manual) Eosinophils % Eosinophils % (Manual) Basophils % Metamyelocytes % (Man) Neutrophils # (Manual) Abs Neuts (Manual) Metamyelocytes Myelocytes Nucleated RBCs Differential Comment Smudge Cells Toxic Granulation Toxic Vacuolation Dohle Bodies Platelet Estimate Platelet Morphology Plt Morphology Comment Basophilic Stippling Spherocytes Tear Drop Cells Ovalocytes Acanthocytes (Spur) RBC Morph Comment ESR Hematology Comments PT 13.4 H Cancelled INR 1.3 Cancelled APTT 29.1 Fibrinogen Puncture Site Patient Temperature HCO3 Base Excess O2 Saturation ABG pH ABG pCO2 ABG pO2 ABG HCO3 ABG O2 Content ABG Base Excess ABG Carboxyhemoglobin ABG Methemoglobin Stepan Test Hemoglobin Carboxyhemoglobin O2 Delivery Device Liter Flow Vent Setting Inspired O2 Critical Value Sodium Potassium Chloride Carbon Dioxide Anion Gap BUN Creatinine Estimated GFR POC Glucose Random Glucose Hemoglobin A1c Lactic Acid Calcium Prot Corrected Calcium Phosphorus Magnesium Total Bilirubin Direct Bilirubin Indirect Bilirubin AST ALT Alkaline Phosphatase Ammonia Total Creatine Kinase Troponin I C-Reactive Protein B-Natriuretic Peptide Total Protein Albumin Prealbumin Triglycerides Cholesterol LDL Cholesterol HDL Cholesterol Cholesterol/HDL Ratio Thiamine Vitamin B12 Procalcitonin Free T4 TSH 3rd Generation Urine Color Urine Clarity Urine Turbidity Urine pH Ur Specific [place] Urine Protein Urine Glucose (UA) Urine Ketones Urine Occult Blood Urine Nitrate Urine Nitrite Urine Bilirubin Urine Urobilinogen Ur Leukocyte Esterase Urine RBC Urine WBC Urine WBC Clumps Ur Squamous Epith Cells Ur Transition Epith Cell Ur Renal Epithelial Cell Amorphous Sediment Urine Bacteria Hyaline Casts Granular Casts Urine Mucus Micro UA Comment Urine Culture Comments Urine Eosinophils Urine Osmolality Ur Random Creatinine Ur Random Sodium Pleural pH Pleural WBC Pleural Nuc Cells Pleural RBC Pleural Neutrophils Pleural Eosinophils Pleural Lymphocytes Pleural Monocytes Pleural Histocytes Pleural Mesothelial Pleural Total Protein Pleural Amylase Pleural LDH Pleural Glucose Nasal Screen MRSA (PCR) Stl C.difficile Tox PCR St C. diff Tox Epid 027 Vancomycin Trough Random Vancomycin Phenytoin Free Phenytoin LOWELL Screen RPR Blood Type Antibody Screen MTS Gel Crossmatch Blood Bank Comment 11/23/17 11/23/17 11/24/17 23:05 23:05 05:01 WBC RBC Hgb Hct MCV MCH MCHC RDW Plt Count MPV Prelim Diff (Auto) Neut % (Auto) Lymph % (Auto) [place] % (Auto) Eos % (Auto) Baso % (Auto) Neut # (Auto) Lymph # (Auto) [place] # (Auto) Eos # (Auto) Baso # (Auto) CBC Comment WBC Differential Total Counted Neutrophils % (Manual) Seg Neuts % (Manual) Band Neutrophils % Band Neuts % (Manual) Lymphocytes % Lymphocytes % (Manual) Monocytes % Monocytes % (Manual) Eosinophils % Eosinophils % (Manual) Basophils % Metamyelocytes % (Man) Neutrophils # (Manual) Abs Neuts (Manual) Metamyelocytes Myelocytes Nucleated RBCs Differential Comment Smudge Cells Toxic Granulation Toxic Vacuolation Dohle Bodies Platelet Estimate Platelet Morphology Plt Morphology Comment Basophilic Stippling Spherocytes Tear Drop Cells Ovalocytes Acanthocytes (Spur) RBC Morph Comment ESR Hematology Comments PT INR APTT 42.6 H D Fibrinogen Puncture Site Patient Temperature HCO3 Base Excess O2 Saturation ABG pH ABG pCO2 ABG pO2 ABG HCO3 ABG O2 Content ABG Base Excess ABG Carboxyhemoglobin ABG Methemoglobin Stepan Test Hemoglobin Carboxyhemoglobin O2 Delivery Device Liter Flow Vent Setting Inspired O2 Critical Value Sodium 146 H Potassium 3.3 L Chloride 108 H Carbon Dioxide 28.1 Anion Gap 10 BUN 27 H Creatinine 1.40 H Estimated GFR 49 L POC Glucose Random Glucose 221 H Hemoglobin A1c Lactic Acid Calcium 6.9 L* Prot Corrected Calcium 8.0 L Phosphorus 3.6 D 3.4 Magnesium 2.0 Total Bilirubin Direct Bilirubin Indirect Bilirubin AST ALT Alkaline Phosphatase Ammonia Total Creatine Kinase Troponin I C-Reactive Protein B-Natriuretic Peptide Total Protein 5.0 L Albumin Prealbumin Triglycerides Cholesterol LDL Cholesterol HDL Cholesterol Cholesterol/HDL Ratio Thiamine Vitamin B12 Procalcitonin Free T4 TSH 3rd Generation Urine Color Urine Clarity Urine Turbidity Urine pH Ur Specific [place] Urine Protein Urine Glucose (UA) Urine Ketones Urine Occult Blood Urine Nitrate Urine Nitrite Urine Bilirubin Urine Urobilinogen Ur Leukocyte Esterase Urine RBC Urine WBC Urine WBC Clumps Ur Squamous Epith Cells Ur Transition Epith Cell Ur Renal Epithelial Cell Amorphous Sediment Urine Bacteria Hyaline Casts Granular Casts Urine Mucus Micro UA Comment Urine Culture Comments Urine Eosinophils Urine Osmolality Ur Random Creatinine Ur Random Sodium Pleural pH Pleural WBC Pleural Nuc Cells Pleural RBC Pleural Neutrophils Pleural Eosinophils Pleural Lymphocytes Pleural Monocytes Pleural Histocytes Pleural Mesothelial Pleural Total Protein Pleural Amylase Pleural LDH Pleural Glucose Nasal Screen MRSA (PCR) Stl C.difficile Tox PCR St C. diff Tox Epid 027 Vancomycin Trough Random Vancomycin Phenytoin Free Phenytoin LOWELL Screen RPR Blood Type Antibody Screen MTS Gel Crossmatch Blood Bank Comment 11/24/17 11/24/17 11/24/17 05:01 05:01 05:01 WBC 7.7 RBC 3.04 L Hgb 9.0 L Hct 26.5 L MCV 87.3 MCH 29.5 MCHC 33.8 RDW 16.4 Plt Count 246 MPV 8.9 Prelim Diff (Auto) Neut % (Auto) 63.1 Lymph % (Auto) 30.1 [place] % (Auto) 6.1 Eos % (Auto) 0.2 Baso % (Auto) 0.5 Neut # (Auto) 4.8 Lymph # (Auto) 2.3 [place] # (Auto) 0.5 Eos # (Auto) 0.0 Baso # (Auto) 0.0 CBC Comment AUTO DIFF WBC Differential Total Counted 100 Neutrophils % (Manual) 65 Seg Neuts % (Manual) Band Neutrophils % 13 H Band Neuts % (Manual) Lymphocytes % 15 Lymphocytes % (Manual) Monocytes % 4 Monocytes % (Manual) Eosinophils % Eosinophils % (Manual) Basophils % Metamyelocytes % (Man) Neutrophils # (Manual) 6.2 Abs Neuts (Manual) Metamyelocytes 3 H Myelocytes Nucleated RBCs Differential Comment FINAL DIFF MANUAL Smudge Cells Toxic Granulation Toxic Vacuolation Dohle Bodies Platelet Estimate NORMAL Platelet Morphology Plt Morphology Comment ENLARGED H Basophilic Stippling Spherocytes Tear Drop Cells Ovalocytes Acanthocytes (Spur) RBC Morph Comment ESR Hematology Comments PT INR APTT 59.4 H D Fibrinogen Puncture Site Patient Temperature HCO3 Base Excess O2 Saturation ABG pH ABG pCO2 ABG pO2 ABG HCO3 ABG O2 Content ABG Base Excess ABG Carboxyhemoglobin ABG Methemoglobin Stepan Test Hemoglobin Carboxyhemoglobin O2 Delivery Device Liter Flow Vent Setting Inspired O2 Critical Value Sodium Potassium Chloride Carbon Dioxide Anion Gap BUN Creatinine Estimated GFR POC Glucose Random Glucose Hemoglobin A1c Lactic Acid Calcium Prot Corrected Calcium Phosphorus Magnesium Total Bilirubin Direct Bilirubin Indirect Bilirubin AST ALT Alkaline Phosphatase Ammonia 21 Total Creatine Kinase Troponin I C-Reactive Protein B-Natriuretic Peptide Total Protein Albumin Prealbumin Triglycerides Cholesterol LDL Cholesterol HDL Cholesterol Cholesterol/HDL Ratio Thiamine Vitamin B12 Procalcitonin Free T4 TSH 3rd Generation Urine Color Urine Clarity Urine Turbidity Urine pH Ur Specific [place] Urine Protein Urine Glucose (UA) Urine Ketones Urine Occult Blood Urine Nitrate Urine Nitrite Urine Bilirubin Urine Urobilinogen Ur Leukocyte Esterase Urine RBC Urine WBC Urine WBC Clumps Ur Squamous Epith Cells Ur Transition Epith Cell Ur Renal Epithelial Cell Amorphous Sediment Urine Bacteria Hyaline Casts Granular Casts Urine Mucus Micro UA Comment Urine Culture Comments Urine Eosinophils Urine Osmolality Ur Random Creatinine Ur Random Sodium Pleural pH Pleural WBC Pleural Nuc Cells Pleural RBC Pleural Neutrophils Pleural Eosinophils Pleural Lymphocytes Pleural Monocytes Pleural Histocytes Pleural Mesothelial Pleural Total Protein Pleural Amylase Pleural LDH Pleural Glucose Nasal Screen MRSA (PCR) Stl C.difficile Tox PCR St C. diff Tox Epid 027 Vancomycin Trough Random Vancomycin Phenytoin Free Phenytoin LOWELL Screen RPR Blood Type Antibody Screen MTS Gel Crossmatch Blood Bank Comment 11/24/17 11/24/17 11/25/17 15:10 19:43 04:20 WBC RBC Hgb Hct MCV MCH MCHC RDW Plt Count MPV Prelim Diff (Auto) Neut % (Auto) Lymph % (Auto) [place] % (Auto) Eos % (Auto) Baso % (Auto) Neut # (Auto) Lymph # (Auto) [place] # (Auto) Eos # (Auto) Baso # (Auto) CBC Comment WBC Differential Total Counted Neutrophils % (Manual) Seg Neuts % (Manual) Band Neutrophils % Band Neuts % (Manual) Lymphocytes % Lymphocytes % (Manual) Monocytes % Monocytes % (Manual) Eosinophils % Eosinophils % (Manual) Basophils % Metamyelocytes % (Man) Neutrophils # (Manual) Abs Neuts (Manual) Metamyelocytes Myelocytes Nucleated RBCs Differential Comment Smudge Cells Toxic Granulation Toxic Vacuolation Dohle Bodies Platelet Estimate Platelet Morphology Plt Morphology Comment Basophilic Stippling Spherocytes Tear Drop Cells Ovalocytes Acanthocytes (Spur) RBC Morph Comment ESR Hematology Comments PT INR APTT Fibrinogen Puncture Site RT BRACHIAL Patient Temperature 98.6 HCO3 28 H Base Excess 5.1 H O2 Saturation 96 ABG pH 7.52 H* ABG pCO2 35 L ABG pO2 136 H ABG HCO3 ABG O2 Content 11.4 L ABG Base Excess ABG Carboxyhemoglobin 0.0 ABG Methemoglobin 1.0 Stepan Test Hemoglobin 8.2 L Carboxyhemoglobin O2 Delivery Device VENTILATOR Liter Flow Vent Setting 16/500/IT1.0/8PEEP Inspired O2 35 Critical Value Sodium Potassium 3.5 Chloride Carbon Dioxide Anion Gap BUN Creatinine Estimated GFR POC Glucose Random Glucose Hemoglobin A1c Lactic Acid Calcium Prot Corrected Calcium Phosphorus Magnesium Total Bilirubin Direct Bilirubin Indirect Bilirubin AST ALT Alkaline Phosphatase Ammonia Total Creatine Kinase Troponin I 0.03 C-Reactive Protein B-Natriuretic Peptide Total Protein Albumin Prealbumin Triglycerides Cholesterol LDL Cholesterol HDL Cholesterol Cholesterol/HDL Ratio Thiamine Vitamin B12 Procalcitonin Free T4 TSH 3rd Generation Urine Color YELLOW Urine Clarity Urine Turbidity HAZY H Urine pH 5.5 Ur Specific [place] 1.013 Urine Protein 100 H Urine Glucose (UA) NEG Urine Ketones NEG Urine Occult Blood SMALL H Urine Nitrate Urine Nitrite NEG Urine Bilirubin NEG Urine Urobilinogen 2.0 Ur Leukocyte Esterase NEG Urine RBC 1 Urine WBC 3 Urine WBC Clumps Ur Squamous Epith Cells <1 Ur Transition Epith Cell Ur Renal Epithelial Cell Amorphous Sediment RARE Urine Bacteria Hyaline Casts 3 Granular Casts Urine Mucus FEW H Micro UA Comment CATH-CULT NOT IND Urine Culture Comments Urine Eosinophils Urine Osmolality Ur Random Creatinine Ur Random Sodium Pleural pH Pleural WBC Pleural Nuc Cells Pleural RBC Pleural Neutrophils Pleural Eosinophils Pleural Lymphocytes Pleural Monocytes Pleural Histocytes Pleural Mesothelial Pleural Total Protein Pleural Amylase Pleural LDH Pleural Glucose Nasal Screen MRSA (PCR) Stl C.difficile Tox PCR St C. diff Tox Epid 027 Vancomycin Trough Random Vancomycin Phenytoin Free Phenytoin LOWELL Screen RPR Blood Type Antibody Screen MTS Gel Crossmatch Blood Bank Comment 11/25/17 11/25/17 11/26/17 05:50 05:50 09:31 WBC RBC Hgb Hct MCV MCH MCHC RDW Plt Count MPV Prelim Diff (Auto) Neut % (Auto) Lymph % (Auto) [place] % (Auto) Eos % (Auto) Baso % (Auto) Neut # (Auto) Lymph # (Auto) [place] # (Auto) Eos # (Auto) Baso # (Auto) CBC Comment WBC Differential Total Counted Neutrophils % (Manual) Seg Neuts % (Manual) Band Neutrophils % Band Neuts % (Manual) Lymphocytes % Lymphocytes % (Manual) Monocytes % Monocytes % (Manual) Eosinophils % Eosinophils % (Manual) Basophils % Metamyelocytes % (Man) Neutrophils # (Manual) Abs Neuts (Manual) Metamyelocytes Myelocytes Nucleated RBCs Differential Comment Smudge Cells Toxic Granulation Toxic Vacuolation Dohle Bodies Platelet Estimate Platelet Morphology Plt Morphology Comment Basophilic Stippling Spherocytes Tear Drop Cells Ovalocytes Acanthocytes (Spur) RBC Morph Comment ESR Hematology Comments PT INR APTT 70.6 H Fibrinogen Puncture Site Patient Temperature HCO3 Base Excess O2 Saturation ABG pH ABG pCO2 ABG pO2 ABG HCO3 ABG O2 Content ABG Base Excess ABG Carboxyhemoglobin ABG Methemoglobin Stepan Test Hemoglobin Carboxyhemoglobin O2 Delivery Device Liter Flow Vent Setting Inspired O2 Critical Value Sodium 145 145 Potassium 3.7 3.6 Chloride 107 107 Carbon Dioxide 27.0 28.4 Anion Gap 11 10 BUN 32 H 41 H Creatinine 1.60 H 1.81 H Estimated GFR 42 L 36 L POC Glucose Random Glucose 240 H 249 H Hemoglobin A1c Lactic Acid Calcium 6.8 L* 7.3 L* Prot Corrected Calcium 7.9 L 8.2 L Phosphorus 2.7 2.9 Magnesium 2.1 2.3 Total Bilirubin 0.3 Direct Bilirubin Indirect Bilirubin AST 84 H ALT 40 Alkaline Phosphatase 105 Ammonia Total Creatine Kinase Troponin I C-Reactive Protein B-Natriuretic Peptide Total Protein 5.0 L 5.4 L Albumin 1.2 L Prealbumin Triglycerides Cholesterol LDL Cholesterol HDL Cholesterol Cholesterol/HDL Ratio Thiamine Vitamin B12 Procalcitonin Free T4 TSH 3rd Generation Urine Color Urine Clarity Urine Turbidity Urine pH Ur Specific [place] Urine Protein Urine Glucose (UA) Urine Ketones Urine Occult Blood Urine Nitrate Urine Nitrite Urine Bilirubin Urine Urobilinogen Ur Leukocyte Esterase Urine RBC Urine WBC Urine WBC Clumps Ur Squamous Epith Cells Ur Transition Epith Cell Ur Renal Epithelial Cell Amorphous Sediment Urine Bacteria Hyaline Casts Granular Casts Urine Mucus Micro UA Comment Urine Culture Comments Urine Eosinophils Urine Osmolality Ur Random Creatinine Ur Random Sodium Pleural pH Pleural WBC Pleural Nuc Cells Pleural RBC Pleural Neutrophils Pleural Eosinophils Pleural Lymphocytes Pleural Monocytes Pleural Histocytes Pleural Mesothelial Pleural Total Protein Pleural Amylase Pleural LDH Pleural Glucose Nasal Screen MRSA (PCR) Stl C.difficile Tox PCR St C. diff Tox Epid 027 Vancomycin Trough Random Vancomycin 19.9 Phenytoin Free Phenytoin LOWELL Screen RPR Blood Type Antibody Screen MTS Gel Crossmatch Blood Bank Comment 11/26/17 11/26/17 11/26/17 09:31 09:31 17:15 WBC 10.9 RBC 2.59 L Hgb 7.7 L Hct 23.4 L MCV 90.2 MCH 29.7 MCHC 33.0 RDW 17.2 Plt Count 250 MPV 9.6 Prelim Diff (Auto) Neut % (Auto) 61.9 Lymph % (Auto) 30.5 [place] % (Auto) 6.5 Eos % (Auto) 0.6 Baso % (Auto) 0.5 Neut # (Auto) 6.7 Lymph # (Auto) 3.3 [place] # (Auto) 0.7 Eos # (Auto) 0.1 Baso # (Auto) 0.1 CBC Comment DIFF FINAL WBC Differential Total Counted Neutrophils % (Manual) Seg Neuts % (Manual) Band Neutrophils % Band Neuts % (Manual) Lymphocytes % Lymphocytes % (Manual) Monocytes % Monocytes % (Manual) Eosinophils % Eosinophils % (Manual) Basophils % Metamyelocytes % (Man) Neutrophils # (Manual) Abs Neuts (Manual) Metamyelocytes Myelocytes Nucleated RBCs Differential Comment Smudge Cells Toxic Granulation Toxic Vacuolation Dohle Bodies Platelet Estimate Platelet Morphology Plt Morphology Comment Basophilic Stippling Spherocytes Tear Drop Cells Ovalocytes Acanthocytes (Spur) RBC Morph Comment ESR Hematology Comments PT INR APTT 67.6 H Fibrinogen Puncture Site Patient Temperature HCO3 Base Excess O2 Saturation ABG pH ABG pCO2 ABG pO2 ABG HCO3 ABG O2 Content ABG Base Excess ABG Carboxyhemoglobin ABG Methemoglobin Stepan Test Hemoglobin Carboxyhemoglobin O2 Delivery Device Liter Flow Vent Setting Inspired O2 Critical Value Sodium Potassium Chloride Carbon Dioxide Anion Gap BUN Creatinine Estimated GFR POC Glucose Random Glucose Hemoglobin A1c Lactic Acid Calcium Prot Corrected Calcium Phosphorus Magnesium Total Bilirubin Direct Bilirubin Indirect Bilirubin AST ALT Alkaline Phosphatase Ammonia Total Creatine Kinase Troponin I C-Reactive Protein B-Natriuretic Peptide Total Protein Albumin Prealbumin Triglycerides Cholesterol LDL Cholesterol HDL Cholesterol Cholesterol/HDL Ratio Thiamine Vitamin B12 Procalcitonin Free T4 TSH 3rd Generation Urine Color YELLOW Urine Clarity Urine Turbidity HAZY H Urine pH 6.5 Ur Specific [place] 1.012 Urine Protein 30 H Urine Glucose (UA) NEG Urine Ketones NEG Urine Occult Blood SMALL H Urine Nitrate Urine Nitrite NEG Urine Bilirubin NEG Urine Urobilinogen LESS THAN 2.0 Ur Leukocyte Esterase NEG Urine RBC 2 Urine WBC 3 Urine WBC Clumps Ur Squamous Epith Cells Ur Transition Epith Cell Ur Renal Epithelial Cell Amorphous Sediment Urine Bacteria Hyaline Casts Granular Casts 6 Urine Mucus Micro UA Comment CATH-CULT NOT IND Urine Culture Comments Urine Eosinophils Urine Osmolality Ur Random Creatinine Ur Random Sodium Pleural pH Pleural WBC Pleural Nuc Cells Pleural RBC Pleural Neutrophils Pleural Eosinophils Pleural Lymphocytes Pleural Monocytes Pleural Histocytes Pleural Mesothelial Pleural Total Protein Pleural Amylase Pleural LDH Pleural Glucose Nasal Screen MRSA (PCR) Stl C.difficile Tox PCR St C. diff Tox Epid 027 Vancomycin Trough Random Vancomycin Phenytoin Free Phenytoin LOWELL Screen RPR Blood Type Antibody Screen MTS Gel Crossmatch Blood Bank Comment 11/26/17 11/26/17 11/26/17 17:15 17:24 21:20 WBC RBC Hgb 8.5 L Hct 25.8 L MCV MCH MCHC RDW Plt Count MPV Prelim Diff (Auto) Neut % (Auto) Lymph % (Auto) [place] % (Auto) Eos % (Auto) Baso % (Auto) Neut # (Auto) Lymph # (Auto) [place] # (Auto) Eos # (Auto) Baso # (Auto) CBC Comment WBC Differential Total Counted Neutrophils % (Manual) Seg Neuts % (Manual) Band Neutrophils % Band Neuts % (Manual) Lymphocytes % Lymphocytes % (Manual) Monocytes % Monocytes % (Manual) Eosinophils % Eosinophils % (Manual) Basophils % Metamyelocytes % (Man) Neutrophils # (Manual) Abs Neuts (Manual) Metamyelocytes Myelocytes Nucleated RBCs Differential Comment Smudge Cells Toxic Granulation Toxic Vacuolation Dohle Bodies Platelet Estimate Platelet Morphology Plt Morphology Comment Basophilic Stippling Spherocytes Tear Drop Cells Ovalocytes Acanthocytes (Spur) RBC Morph Comment ESR Hematology Comments PT INR APTT 77.3 H Fibrinogen Puncture Site Patient Temperature HCO3 Base Excess O2 Saturation ABG pH ABG pCO2 ABG pO2 ABG HCO3 ABG O2 Content ABG Base Excess ABG Carboxyhemoglobin ABG Methemoglobin Stepan Test Hemoglobin Carboxyhemoglobin O2 Delivery Device Liter Flow Vent Setting Inspired O2 Critical Value Sodium Potassium Chloride Carbon Dioxide Anion Gap BUN Creatinine Estimated GFR POC Glucose Random Glucose Hemoglobin A1c Lactic Acid Calcium Prot Corrected Calcium Phosphorus Magnesium Total Bilirubin Direct Bilirubin Indirect Bilirubin AST ALT Alkaline Phosphatase Ammonia Total Creatine Kinase Troponin I C-Reactive Protein B-Natriuretic Peptide Total Protein Albumin Prealbumin Triglycerides Cholesterol LDL Cholesterol HDL Cholesterol Cholesterol/HDL Ratio Thiamine Vitamin B12 Procalcitonin Free T4 TSH 3rd Generation Urine Color Urine Clarity Urine Turbidity Urine pH Ur Specific [place] Urine Protein Urine Glucose (UA) Urine Ketones Urine Occult Blood Urine Nitrate Urine Nitrite Urine Bilirubin Urine Urobilinogen Ur Leukocyte Esterase Urine RBC Urine WBC Urine WBC Clumps Ur Squamous Epith Cells Ur Transition Epith Cell Ur Renal Epithelial Cell Amorphous Sediment Urine Bacteria Hyaline Casts Granular Casts Urine Mucus Micro UA Comment Urine Culture Comments Urine Eosinophils NONE SEEN Urine Osmolality Ur Random Creatinine Ur Random Sodium Pleural pH Pleural WBC Pleural Nuc Cells Pleural RBC Pleural Neutrophils Pleural Eosinophils Pleural Lymphocytes Pleural Monocytes Pleural Histocytes Pleural Mesothelial Pleural Total Protein Pleural Amylase Pleural LDH Pleural Glucose Nasal Screen MRSA (PCR) Stl C.difficile Tox PCR St C. diff Tox Epid 027 Vancomycin Trough Random Vancomycin Phenytoin Free Phenytoin LOWELL Screen RPR Blood Type Antibody Screen MTS Gel Crossmatch Blood Bank Comment 11/27/17 11/27/17 11/27/17 01:23 03:16 03:16 WBC 10.0 RBC 2.69 L Hgb 8.2 L Hct 23.9 L MCV 89.0 MCH 30.5 MCHC 34.3 RDW 16.7 Plt Count 198 MPV 9.6 Prelim Diff (Auto) Neut % (Auto) 61.3 Lymph % (Auto) 31.4 [place] % (Auto) 7.0 Eos % (Auto) 0.1 Baso % (Auto) 0.2 Neut # (Auto) 6.1 Lymph # (Auto) 3.1 [place] # (Auto) 0.7 Eos # (Auto) 0.0 Baso # (Auto) 0.0 CBC Comment AUTO DIFF WBC Differential Total Counted 100 Neutrophils % (Manual) 70 Seg Neuts % (Manual) Band Neutrophils % 7 H Band Neuts % (Manual) Lymphocytes % 18 Lymphocytes % (Manual) Monocytes % 3 Monocytes % (Manual) Eosinophils % Eosinophils % (Manual) Basophils % Metamyelocytes % (Man) Neutrophils # (Manual) 7.9 H Abs Neuts (Manual) Metamyelocytes 2 H Myelocytes Nucleated RBCs Differential Comment FINAL DIFF MANUAL Smudge Cells Toxic Granulation Toxic Vacuolation Dohle Bodies Platelet Estimate NORMAL Platelet Morphology Plt Morphology Comment NORMAL Basophilic Stippling [place]INT H Spherocytes OCC Tear Drop Cells Ovalocytes Acanthocytes (Spur) RBC Morph Comment ESR Hematology Comments PT INR APTT 45.5 H D Fibrinogen Puncture Site Patient Temperature HCO3 Base Excess O2 Saturation ABG pH ABG pCO2 ABG pO2 ABG HCO3 ABG O2 Content ABG Base Excess ABG Carboxyhemoglobin ABG Methemoglobin Stepan Test Hemoglobin Carboxyhemoglobin O2 Delivery Device Liter Flow Vent Setting Inspired O2 Critical Value Sodium 145 Potassium 3.4 L Chloride 108 H Carbon Dioxide 28.5 Anion Gap 9 BUN 41 H Creatinine 1.70 H Estimated GFR 39 L POC Glucose Random Glucose 191 H Hemoglobin A1c Lactic Acid Calcium 6.7 L* Prot Corrected Calcium 7.8 L Phosphorus 3.5 Magnesium 2.2 Total Bilirubin 0.4 Direct Bilirubin Indirect Bilirubin AST 49 H ALT 13 Alkaline Phosphatase 76 Ammonia Total Creatine Kinase Troponin I C-Reactive Protein B-Natriuretic Peptide Total Protein 4.9 L Albumin 1.0 L Prealbumin Triglycerides Cholesterol LDL Cholesterol HDL Cholesterol Cholesterol/HDL Ratio Thiamine Vitamin B12 Procalcitonin Free T4 TSH 3rd Generation Urine Color Urine Clarity Urine Turbidity Urine pH Ur Specific [place] Urine Protein Urine Glucose (UA) Urine Ketones Urine Occult Blood Urine Nitrate Urine Nitrite Urine Bilirubin Urine Urobilinogen Ur Leukocyte Esterase Urine RBC Urine WBC Urine WBC Clumps Ur Squamous Epith Cells Ur Transition Epith Cell Ur Renal Epithelial Cell Amorphous Sediment Urine Bacteria Hyaline Casts Granular Casts Urine Mucus Micro UA Comment Urine Culture Comments Urine Eosinophils Urine Osmolality Ur Random Creatinine Ur Random Sodium Pleural pH Pleural WBC Pleural Nuc Cells Pleural RBC Pleural Neutrophils Pleural Eosinophils Pleural Lymphocytes Pleural Monocytes Pleural Histocytes Pleural Mesothelial Pleural Total Protein Pleural Amylase Pleural LDH Pleural Glucose Nasal Screen MRSA (PCR) Stl C.difficile Tox PCR St C. diff Tox Epid 027 Vancomycin Trough Random Vancomycin Phenytoin Free Phenytoin LOWELL Screen RPR Blood Type Antibody Screen MTS Gel Crossmatch Blood Bank Comment 11/27/17 11/27/17 11/27/17 06:55 09:06 10:26 WBC RBC Hgb 8.4 L Hct 25.0 L MCV MCH MCHC RDW Plt Count MPV Prelim Diff (Auto) Neut % (Auto) Lymph % (Auto) [place] % (Auto) Eos % (Auto) Baso % (Auto) Neut # (Auto) Lymph # (Auto) [place] # (Auto) Eos # (Auto) Baso # (Auto) CBC Comment WBC Differential Total Counted Neutrophils % (Manual) Seg Neuts % (Manual) Band Neutrophils % Band Neuts % (Manual) Lymphocytes % Lymphocytes % (Manual) Monocytes % Monocytes % (Manual) Eosinophils % Eosinophils % (Manual) Basophils % Metamyelocytes % (Man) Neutrophils # (Manual) Abs Neuts (Manual) Metamyelocytes Myelocytes Nucleated RBCs Differential Comment Smudge Cells Toxic Granulation Toxic Vacuolation Dohle Bodies Platelet Estimate Platelet Morphology Plt Morphology Comment Basophilic Stippling Spherocytes Tear Drop Cells Ovalocytes Acanthocytes (Spur) RBC Morph Comment ESR Hematology Comments PT INR APTT 34.1 H D Fibrinogen Puncture Site RT RADIAL Patient Temperature 98.6 HCO3 29 H Base Excess 6.4 H O2 Saturation 96 ABG pH 7.56 H* ABG pCO2 33 L ABG pO2 126 H ABG HCO3 ABG O2 Content 11.5 L ABG Base Excess ABG Carboxyhemoglobin 1.1 ABG Methemoglobin 1.6 Stepan Test Hemoglobin 8.3 L Carboxyhemoglobin O2 Delivery Device VENTILATOR Liter Flow Vent Setting CPAP+8/PS15 Inspired O2 35 Critical Value Sodium Potassium Chloride Carbon Dioxide Anion Gap BUN Creatinine Estimated GFR POC Glucose Random Glucose Hemoglobin A1c Lactic Acid Calcium Prot Corrected Calcium Phosphorus Magnesium Total Bilirubin Direct Bilirubin Indirect Bilirubin AST ALT Alkaline Phosphatase Ammonia Total Creatine Kinase Troponin I C-Reactive Protein B-Natriuretic Peptide Total Protein Albumin Prealbumin Triglycerides Cholesterol LDL Cholesterol HDL Cholesterol Cholesterol/HDL Ratio Thiamine Vitamin B12 Procalcitonin Free T4 TSH 3rd Generation Urine Color Urine Clarity Urine Turbidity Urine pH Ur Specific [place] Urine Protein Urine Glucose (UA) Urine Ketones Urine Occult Blood Urine Nitrate Urine Nitrite Urine Bilirubin Urine Urobilinogen Ur Leukocyte Esterase Urine RBC Urine WBC Urine WBC Clumps Ur Squamous Epith Cells Ur Transition Epith Cell Ur Renal Epithelial Cell Amorphous Sediment Urine Bacteria Hyaline Casts Granular Casts Urine Mucus Micro UA Comment Urine Culture Comments Urine Eosinophils Urine Osmolality Ur Random Creatinine Ur Random Sodium Pleural pH Pleural WBC Pleural Nuc Cells Pleural RBC Pleural Neutrophils Pleural Eosinophils Pleural Lymphocytes Pleural Monocytes Pleural Histocytes Pleural Mesothelial Pleural Total Protein Pleural Amylase Pleural LDH Pleural Glucose Nasal Screen MRSA (PCR) Stl C.difficile Tox PCR St C. diff Tox Epid 027 Vancomycin Trough Random Vancomycin Phenytoin Free Phenytoin LOWELL Screen RPR Blood Type Antibody Screen MTS Gel Crossmatch Blood Bank Comment 11/27/17 11/27/17 11/27/17 13:59 16:34 20:40 WBC RBC Hgb 8.4 L Hct 25.5 L MCV MCH MCHC RDW Plt Count MPV Prelim Diff (Auto) Neut % (Auto) Lymph % (Auto) [place] % (Auto) Eos % (Auto) Baso % (Auto) Neut # (Auto) Lymph # (Auto) [place] # (Auto) Eos # (Auto) Baso # (Auto) CBC Comment WBC Differential Total Counted Neutrophils % (Manual) Seg Neuts % (Manual) Band Neutrophils % Band Neuts % (Manual) Lymphocytes % Lymphocytes % (Manual) Monocytes % Monocytes % (Manual) Eosinophils % Eosinophils % (Manual) Basophils % Metamyelocytes % (Man) Neutrophils # (Manual) Abs Neuts (Manual) Metamyelocytes Myelocytes Nucleated RBCs Differential Comment Smudge Cells Toxic Granulation Toxic Vacuolation Dohle Bodies Platelet Estimate Platelet Morphology Plt Morphology Comment Basophilic Stippling Spherocytes Tear Drop Cells Ovalocytes Acanthocytes (Spur) RBC Morph Comment ESR Hematology Comments PT INR APTT 31.4 H Fibrinogen Puncture Site Patient Temperature HCO3 Base Excess O2 Saturation ABG pH ABG pCO2 ABG pO2 ABG HCO3 ABG O2 Content ABG Base Excess ABG Carboxyhemoglobin ABG Methemoglobin Stepan Test Hemoglobin Carboxyhemoglobin O2 Delivery Device Liter Flow Vent Setting Inspired O2 Critical Value Sodium Potassium 3.0 L Chloride Carbon Dioxide Anion Gap BUN Creatinine Estimated GFR POC Glucose Random Glucose Hemoglobin A1c Lactic Acid Calcium Prot Corrected Calcium Phosphorus Magnesium Total Bilirubin Direct Bilirubin Indirect Bilirubin AST ALT Alkaline Phosphatase Ammonia Total Creatine Kinase Troponin I C-Reactive Protein B-Natriuretic Peptide Total Protein Albumin Prealbumin Triglycerides Cholesterol LDL Cholesterol HDL Cholesterol Cholesterol/HDL Ratio Thiamine Vitamin B12 Procalcitonin Free T4 TSH 3rd Generation Urine Color Urine Clarity Urine Turbidity Urine pH Ur Specific [place] Urine Protein Urine Glucose (UA) Urine Ketones Urine Occult Blood Urine Nitrate Urine Nitrite Urine Bilirubin Urine Urobilinogen Ur Leukocyte Esterase Urine RBC Urine WBC Urine WBC Clumps Ur Squamous Epith Cells Ur Transition Epith Cell Ur Renal Epithelial Cell Amorphous Sediment Urine Bacteria Hyaline Casts Granular Casts Urine Mucus Micro UA Comment Urine Culture Comments Urine Eosinophils Urine Osmolality Ur Random Creatinine Ur Random Sodium Pleural pH Pleural WBC Pleural Nuc Cells Pleural RBC Pleural Neutrophils Pleural Eosinophils Pleural Lymphocytes Pleural Monocytes Pleural Histocytes Pleural Mesothelial Pleural Total Protein Pleural Amylase Pleural LDH Pleural Glucose Nasal Screen MRSA (PCR) Stl C.difficile Tox PCR St C. diff Tox Epid 027 Vancomycin Trough Random Vancomycin Phenytoin Free Phenytoin LOWELL Screen RPR Blood Type Antibody Screen MTS Gel Crossmatch Blood Bank Comment 11/27/17 11/28/17 11/28/17 21:47 01:23 03:31 WBC RBC Hgb 8.8 L Hct 26.8 L MCV MCH MCHC RDW Plt Count MPV Prelim Diff (Auto) Neut % (Auto) Lymph % (Auto) [place] % (Auto) Eos % (Auto) Baso % (Auto) Neut # (Auto) Lymph # (Auto) [place] # (Auto) Eos # (Auto) Baso # (Auto) CBC Comment WBC Differential Total Counted Neutrophils % (Manual) Seg Neuts % (Manual) Band Neutrophils % Band Neuts % (Manual) Lymphocytes % Lymphocytes % (Manual) Monocytes % Monocytes % (Manual) Eosinophils % Eosinophils % (Manual) Basophils % Metamyelocytes % (Man) Neutrophils # (Manual) Abs Neuts (Manual) Metamyelocytes Myelocytes Nucleated RBCs Differential Comment Smudge Cells Toxic Granulation Toxic Vacuolation Dohle Bodies Platelet Estimate Platelet Morphology Plt Morphology Comment Basophilic Stippling Spherocytes Tear Drop Cells Ovalocytes Acanthocytes (Spur) RBC Morph Comment ESR Hematology Comments PT INR APTT 29.9 Fibrinogen Puncture Site Patient Temperature HCO3 Base Excess O2 Saturation ABG pH ABG pCO2 ABG pO2 ABG HCO3 ABG O2 Content ABG Base Excess ABG Carboxyhemoglobin ABG Methemoglobin Stepan Test Hemoglobin Carboxyhemoglobin O2 Delivery Device Liter Flow Vent Setting Inspired O2 Critical Value Sodium 144 Potassium 3.2 L Chloride 106 Carbon Dioxide 28.0 Anion Gap 10 BUN 39 H Creatinine 1.63 H Estimated GFR 41 L POC Glucose Random Glucose 150 H Hemoglobin A1c Lactic Acid Calcium 6.8 L* Prot Corrected Calcium 8.1 L Phosphorus 3.6 Magnesium 2.2 Total Bilirubin Direct Bilirubin Indirect Bilirubin AST ALT Alkaline Phosphatase Ammonia Total Creatine Kinase Troponin I C-Reactive Protein B-Natriuretic Peptide Total Protein 4.7 L Albumin Prealbumin Triglycerides Cholesterol LDL Cholesterol HDL Cholesterol Cholesterol/HDL Ratio Thiamine Vitamin B12 Procalcitonin Free T4 TSH 3rd Generation Urine Color Urine Clarity Urine Turbidity Urine pH Ur Specific [place] Urine Protein Urine Glucose (UA) Urine Ketones Urine Occult Blood Urine Nitrate Urine Nitrite Urine Bilirubin Urine Urobilinogen Ur Leukocyte Esterase Urine RBC Urine WBC Urine WBC Clumps Ur Squamous Epith Cells Ur Transition Epith Cell Ur Renal Epithelial Cell Amorphous Sediment Urine Bacteria Hyaline Casts Granular Casts Urine Mucus Micro UA Comment Urine Culture Comments Urine Eosinophils Urine Osmolality Ur Random Creatinine Ur Random Sodium Pleural pH Pleural WBC Pleural Nuc Cells Pleural RBC Pleural Neutrophils Pleural Eosinophils Pleural Lymphocytes Pleural Monocytes Pleural Histocytes Pleural Mesothelial Pleural Total Protein Pleural Amylase Pleural LDH Pleural Glucose Nasal Screen MRSA (PCR) Stl C.difficile Tox PCR St C. diff Tox Epid 027 Vancomycin Trough Random Vancomycin Phenytoin Free Phenytoin LOWELL Screen RPR Blood Type Antibody Screen MTS Gel Crossmatch Blood Bank Comment 11/28/17 11/28/17 11/28/17 03:31 03:31 03:31 WBC RBC Hgb 8.0 L Hct 24.1 L MCV MCH MCHC RDW Plt Count MPV Prelim Diff (Auto) Neut % (Auto) Lymph % (Auto) [place] % (Auto) Eos % (Auto) Baso % (Auto) Neut # (Auto) Lymph # (Auto) [place] # (Auto) Eos # (Auto) Baso # (Auto) CBC Comment WBC Differential Total Counted Neutrophils % (Manual) Seg Neuts % (Manual) Band Neutrophils % Band Neuts % (Manual) Lymphocytes % Lymphocytes % (Manual) Monocytes % Monocytes % (Manual) Eosinophils % Eosinophils % (Manual) Basophils % Metamyelocytes % (Man) Neutrophils # (Manual) Abs Neuts (Manual) Metamyelocytes Myelocytes Nucleated RBCs Differential Comment Smudge Cells Toxic Granulation Toxic Vacuolation Dohle Bodies Platelet Estimate Platelet Morphology Plt Morphology Comment Basophilic Stippling Spherocytes Tear Drop Cells Ovalocytes Acanthocytes (Spur) RBC Morph Comment ESR Hematology Comments PT 12.2 H INR 1.2 APTT Fibrinogen Puncture Site Patient Temperature HCO3 Base Excess O2 Saturation ABG pH ABG pCO2 ABG pO2 ABG HCO3 ABG O2 Content ABG Base Excess ABG Carboxyhemoglobin ABG Methemoglobin Stepan Test Hemoglobin Carboxyhemoglobin O2 Delivery Device Liter Flow Vent Setting Inspired O2 Critical Value Sodium Potassium Chloride Carbon Dioxide Anion Gap BUN Creatinine Estimated GFR POC Glucose Random Glucose Hemoglobin A1c Lactic Acid Calcium Prot Corrected Calcium Phosphorus Magnesium Total Bilirubin Direct Bilirubin Indirect Bilirubin AST ALT Alkaline Phosphatase Ammonia 20 Total Creatine Kinase Troponin I C-Reactive Protein B-Natriuretic Peptide Total Protein Albumin Prealbumin Triglycerides Cholesterol LDL Cholesterol HDL Cholesterol Cholesterol/HDL Ratio Thiamine Vitamin B12 Procalcitonin Free T4 TSH 3rd Generation Urine Color Urine Clarity Urine Turbidity Urine pH Ur Specific [place] Urine Protein Urine Glucose (UA) Urine Ketones Urine Occult Blood Urine Nitrate Urine Nitrite Urine Bilirubin Urine Urobilinogen Ur Leukocyte Esterase Urine RBC Urine WBC Urine WBC Clumps Ur Squamous Epith Cells Ur Transition Epith Cell Ur Renal Epithelial Cell Amorphous Sediment Urine Bacteria Hyaline Casts Granular Casts Urine Mucus Micro UA Comment Urine Culture Comments Urine Eosinophils Urine Osmolality Ur Random Creatinine Ur Random Sodium Pleural pH Pleural WBC Pleural Nuc Cells Pleural RBC Pleural Neutrophils Pleural Eosinophils Pleural Lymphocytes Pleural Monocytes Pleural Histocytes Pleural Mesothelial Pleural Total Protein Pleural Amylase Pleural LDH Pleural Glucose Nasal Screen MRSA (PCR) Stl C.difficile Tox PCR St C. diff Tox Epid 027 Vancomycin Trough Random Vancomycin Phenytoin Free Phenytoin LOWELL Screen RPR Blood Type Antibody Screen MTS Gel Crossmatch Blood Bank Comment 11/28/17 11/28/17 11/28/17 07:03 07:03 09:30 WBC RBC Hgb 10.0 L D Hct 30.3 L MCV MCH MCHC RDW Plt Count MPV Prelim Diff (Auto) Neut % (Auto) Lymph % (Auto) [place] % (Auto) Eos % (Auto) Baso % (Auto) Neut # (Auto) Lymph # (Auto) [place] # (Auto) Eos # (Auto) Baso # (Auto) CBC Comment WBC Differential Total Counted Neutrophils % (Manual) Seg Neuts % (Manual) Band Neutrophils % Band Neuts % (Manual) Lymphocytes % Lymphocytes % (Manual) Monocytes % Monocytes % (Manual) Eosinophils % Eosinophils % (Manual) Basophils % Metamyelocytes % (Man) Neutrophils # (Manual) Abs Neuts (Manual) Metamyelocytes Myelocytes Nucleated RBCs Differential Comment Smudge Cells Toxic Granulation Toxic Vacuolation Dohle Bodies Platelet Estimate Platelet Morphology Plt Morphology Comment Basophilic Stippling Spherocytes Tear Drop Cells Ovalocytes Acanthocytes (Spur) RBC Morph Comment ESR Hematology Comments PT INR APTT 29.3 Fibrinogen Puncture Site Patient Temperature HCO3 Base Excess O2 Saturation ABG pH ABG pCO2 ABG pO2 ABG HCO3 ABG O2 Content ABG Base Excess ABG Carboxyhemoglobin ABG Methemoglobin Stepan Test Hemoglobin Carboxyhemoglobin O2 Delivery Device Liter Flow Vent Setting Inspired O2 Critical Value Sodium Potassium Chloride Carbon Dioxide Anion Gap BUN Creatinine Estimated GFR POC Glucose Random Glucose Hemoglobin A1c Lactic Acid Calcium Prot Corrected Calcium Phosphorus Magnesium Total Bilirubin Direct Bilirubin Indirect Bilirubin AST ALT Alkaline Phosphatase Ammonia Total Creatine Kinase Troponin I C-Reactive Protein B-Natriuretic Peptide Total Protein Albumin Prealbumin 12 L Triglycerides Cholesterol LDL Cholesterol HDL Cholesterol Cholesterol/HDL Ratio Thiamine Vitamin B12 Procalcitonin Free T4 TSH 3rd Generation Urine Color Urine Clarity Urine Turbidity Urine pH Ur Specific [place] Urine Protein Urine Glucose (UA) Urine Ketones Urine Occult Blood Urine Nitrate Urine Nitrite Urine Bilirubin Urine Urobilinogen Ur Leukocyte Esterase Urine RBC Urine WBC Urine WBC Clumps Ur Squamous Epith Cells Ur Transition Epith Cell Ur Renal Epithelial Cell Amorphous Sediment Urine Bacteria Hyaline Casts Granular Casts Urine Mucus Micro UA Comment Urine Culture Comments Urine Eosinophils Urine Osmolality Ur Random Creatinine Ur Random Sodium Pleural pH Pleural WBC Pleural Nuc Cells Pleural RBC Pleural Neutrophils Pleural Eosinophils Pleural Lymphocytes Pleural Monocytes Pleural Histocytes Pleural Mesothelial Pleural Total Protein Pleural Amylase Pleural LDH Pleural Glucose Nasal Screen MRSA (PCR) Stl C.difficile Tox PCR St C. diff Tox Epid 027 Vancomycin Trough Random Vancomycin Phenytoin Free Phenytoin LOWELL Screen RPR Blood Type Antibody Screen MTS Gel Crossmatch Blood Bank Comment 11/28/17 11/28/17 11/29/17 19:33 21:17 03:55 WBC RBC Hgb Hct MCV MCH MCHC RDW Plt Count MPV Prelim Diff (Auto) Neut % (Auto) Lymph % (Auto) [place] % (Auto) Eos % (Auto) Baso % (Auto) Neut # (Auto) Lymph # (Auto) [place] # (Auto) Eos # (Auto) Baso # (Auto) CBC Comment WBC Differential Total Counted Neutrophils % (Manual) Seg Neuts % (Manual) Band Neutrophils % Band Neuts % (Manual) Lymphocytes % Lymphocytes % (Manual) Monocytes % Monocytes % (Manual) Eosinophils % Eosinophils % (Manual) Basophils % Metamyelocytes % (Man) Neutrophils # (Manual) Abs Neuts (Manual) Metamyelocytes Myelocytes Nucleated RBCs Differential Comment Smudge Cells Toxic Granulation Toxic Vacuolation Dohle Bodies Platelet Estimate Platelet Morphology Plt Morphology Comment Basophilic Stippling Spherocytes Tear Drop Cells Ovalocytes Acanthocytes (Spur) RBC Morph Comment ESR Hematology Comments PT INR APTT 73.9 H D Fibrinogen Puncture Site Patient Temperature HCO3 Base Excess O2 Saturation ABG pH ABG pCO2 ABG pO2 ABG HCO3 ABG O2 Content ABG Base Excess ABG Carboxyhemoglobin ABG Methemoglobin Stepan Test Hemoglobin Carboxyhemoglobin O2 Delivery Device Liter Flow Vent Setting Inspired O2 Critical Value Sodium 142 Potassium 3.3 L 3.5 Chloride 105 Carbon Dioxide 24.7 Anion Gap 12 BUN 36 H Creatinine 1.65 H Estimated GFR 41 L POC Glucose Random Glucose 220 H Hemoglobin A1c Lactic Acid Calcium 6.9 L* Prot Corrected Calcium 8.1 L Phosphorus Magnesium Total Bilirubin Direct Bilirubin Indirect Bilirubin AST ALT Alkaline Phosphatase Ammonia Total Creatine Kinase Troponin I C-Reactive Protein B-Natriuretic Peptide Total Protein 4.9 L Albumin Prealbumin Triglycerides Cholesterol LDL Cholesterol HDL Cholesterol Cholesterol/HDL Ratio Thiamine Vitamin B12 Procalcitonin Free T4 TSH 3rd Generation Urine Color Urine Clarity Urine Turbidity Urine pH Ur Specific [place] Urine Protein Urine Glucose (UA) Urine Ketones Urine Occult Blood Urine Nitrate Urine Nitrite Urine Bilirubin Urine Urobilinogen Ur Leukocyte Esterase Urine RBC Urine WBC Urine WBC Clumps Ur Squamous Epith Cells Ur Transition Epith Cell Ur Renal Epithelial Cell Amorphous Sediment Urine Bacteria Hyaline Casts Granular Casts Urine Mucus Micro UA Comment Urine Culture Comments Urine Eosinophils Urine Osmolality Ur Random Creatinine Ur Random Sodium Pleural pH Pleural WBC Pleural Nuc Cells Pleural RBC Pleural Neutrophils Pleural Eosinophils Pleural Lymphocytes Pleural Monocytes Pleural Histocytes Pleural Mesothelial Pleural Total Protein Pleural Amylase Pleural LDH Pleural Glucose Nasal Screen MRSA (PCR) Stl C.difficile Tox PCR St C. diff Tox Epid 027 Vancomycin Trough Random Vancomycin Phenytoin Free Phenytoin LOWELL Screen RPR Blood Type Antibody Screen MTS Gel Crossmatch Blood Bank Comment 11/29/17 11/29/17 11/29/17 03:55 03:55 09:54 WBC 9.5 RBC 2.96 L Hgb 8.9 L Hct 26.8 L MCV 90.5 MCH 30.3 MCHC 33.4 RDW 17.6 H Plt Count 234 MPV 10.0 Prelim Diff (Auto) Neut % (Auto) Lymph % (Auto) [place] % (Auto) Eos % (Auto) Baso % (Auto) Neut # (Auto) Lymph # (Auto) [place] # (Auto) Eos # (Auto) Baso # (Auto) CBC Comment WBC Differential Total Counted Neutrophils % (Manual) Seg Neuts % (Manual) Band Neutrophils % Band Neuts % (Manual) Lymphocytes % Lymphocytes % (Manual) Monocytes % Monocytes % (Manual) Eosinophils % Eosinophils % (Manual) Basophils % Metamyelocytes % (Man) Neutrophils # (Manual) Abs Neuts (Manual) Metamyelocytes Myelocytes Nucleated RBCs Differential Comment Smudge Cells Toxic Granulation Toxic Vacuolation Dohle Bodies Platelet Estimate Platelet Morphology Plt Morphology Comment Basophilic Stippling Spherocytes Tear Drop Cells Ovalocytes Acanthocytes (Spur) RBC Morph Comment ESR Hematology Comments PT INR APTT 35.7 H D Fibrinogen Puncture Site Patient Temperature HCO3 Base Excess O2 Saturation ABG pH ABG pCO2 ABG pO2 ABG HCO3 ABG O2 Content ABG Base Excess ABG Carboxyhemoglobin ABG Methemoglobin Stepan Test Hemoglobin Carboxyhemoglobin O2 Delivery Device Liter Flow Vent Setting Inspired O2 Critical Value Sodium Potassium 3.0 L Chloride Carbon Dioxide Anion Gap BUN Creatinine Estimated GFR POC Glucose Random Glucose Hemoglobin A1c Lactic Acid Calcium Prot Corrected Calcium Phosphorus Magnesium Total Bilirubin Direct Bilirubin Indirect Bilirubin AST ALT Alkaline Phosphatase Ammonia Total Creatine Kinase Troponin I C-Reactive Protein B-Natriuretic Peptide Total Protein Albumin Prealbumin Triglycerides Cholesterol LDL Cholesterol HDL Cholesterol Cholesterol/HDL Ratio Thiamine Vitamin B12 Procalcitonin Free T4 TSH 3rd Generation Urine Color Urine Clarity Urine Turbidity Urine pH Ur Specific [place] Urine Protein Urine Glucose (UA) Urine Ketones Urine Occult Blood Urine Nitrate Urine Nitrite Urine Bilirubin Urine Urobilinogen Ur Leukocyte Esterase Urine RBC Urine WBC Urine WBC Clumps Ur Squamous Epith Cells Ur Transition Epith Cell Ur Renal Epithelial Cell Amorphous Sediment Urine Bacteria Hyaline Casts Granular Casts Urine Mucus Micro UA Comment Urine Culture Comments Urine Eosinophils Urine Osmolality Ur Random Creatinine Ur Random Sodium Pleural pH Pleural WBC Pleural Nuc Cells Pleural RBC Pleural Neutrophils Pleural Eosinophils Pleural Lymphocytes Pleural Monocytes Pleural Histocytes Pleural Mesothelial Pleural Total Protein Pleural Amylase Pleural LDH Pleural Glucose Nasal Screen MRSA (PCR) Stl C.difficile Tox PCR St C. diff Tox Epid 027 Vancomycin Trough Random Vancomycin Phenytoin Free Phenytoin LOWELL Screen RPR Blood Type Antibody Screen MTS Gel Crossmatch Blood Bank Comment 11/29/17 11/29/17 11/30/17 09:54 16:00 03:37 WBC RBC Hgb Hct MCV MCH MCHC RDW Plt Count MPV Prelim Diff (Auto) Neut % (Auto) Lymph % (Auto) [place] % (Auto) Eos % (Auto) Baso % (Auto) Neut # (Auto) Lymph # (Auto) [place] # (Auto) Eos # (Auto) Baso # (Auto) CBC Comment WBC Differential Total Counted Neutrophils % (Manual) Seg Neuts % (Manual) Band Neutrophils % Band Neuts % (Manual) Lymphocytes % Lymphocytes % (Manual) Monocytes % Monocytes % (Manual) Eosinophils % Eosinophils % (Manual) Basophils % Metamyelocytes % (Man) Neutrophils # (Manual) Abs Neuts (Manual) Metamyelocytes Myelocytes Nucleated RBCs Differential Comment Smudge Cells Toxic Granulation Toxic Vacuolation Dohle Bodies Platelet Estimate Platelet Morphology Plt Morphology Comment Basophilic Stippling Spherocytes Tear Drop Cells Ovalocytes Acanthocytes (Spur) RBC Morph Comment ESR Hematology Comments PT INR APTT 33.0 H 30.4 H 32.4 H Fibrinogen Puncture Site Patient Temperature HCO3 Base Excess O2 Saturation ABG pH ABG pCO2 ABG pO2 ABG HCO3 ABG O2 Content ABG Base Excess ABG Carboxyhemoglobin ABG Methemoglobin Stepan Test Hemoglobin Carboxyhemoglobin O2 Delivery Device Liter Flow Vent Setting Inspired O2 Critical Value Sodium Potassium Chloride Carbon Dioxide Anion Gap BUN Creatinine Estimated GFR POC Glucose Random Glucose Hemoglobin A1c Lactic Acid Calcium Prot Corrected Calcium Phosphorus Magnesium Total Bilirubin Direct Bilirubin Indirect Bilirubin AST ALT Alkaline Phosphatase Ammonia Total Creatine Kinase Troponin I C-Reactive Protein B-Natriuretic Peptide Total Protein Albumin Prealbumin Triglycerides Cholesterol LDL Cholesterol HDL Cholesterol Cholesterol/HDL Ratio Thiamine Vitamin B12 Procalcitonin Free T4 TSH 3rd Generation Urine Color Urine Clarity Urine Turbidity Urine pH Ur Specific [place] Urine Protein Urine Glucose (UA) Urine Ketones Urine Occult Blood Urine Nitrate Urine Nitrite Urine Bilirubin Urine Urobilinogen Ur Leukocyte Esterase Urine RBC Urine WBC Urine WBC Clumps Ur Squamous Epith Cells Ur Transition Epith Cell Ur Renal Epithelial Cell Amorphous Sediment Urine Bacteria Hyaline Casts Granular Casts Urine Mucus Micro UA Comment Urine Culture Comments Urine Eosinophils Urine Osmolality Ur Random Creatinine Ur Random Sodium Pleural pH Pleural WBC Pleural Nuc Cells Pleural RBC Pleural Neutrophils Pleural Eosinophils Pleural Lymphocytes Pleural Monocytes Pleural Histocytes Pleural Mesothelial Pleural Total Protein Pleural Amylase Pleural LDH Pleural Glucose Nasal Screen MRSA (PCR) Stl C.difficile Tox PCR St C. diff Tox Epid 027 Vancomycin Trough Random Vancomycin Phenytoin Free Phenytoin LOWELL Screen RPR Blood Type Antibody Screen MTS Gel Crossmatch Blood Bank Comment 11/30/17 11/30/17 11/30/17 03:37 03:37 10:46 WBC 8.5 RBC 2.89 L Hgb 8.7 L Hct 25.9 L MCV 89.7 MCH 29.9 MCHC 33.4 RDW 17.7 H Plt Count 253 MPV 9.6 Prelim Diff (Auto) Neut % (Auto) 58.9 Lymph % (Auto) 33.2 [place] % (Auto) 7.5 Eos % (Auto) 0.1 Baso % (Auto) 0.3 Neut # (Auto) 5.0 Lymph # (Auto) 2.8 [place] # (Auto) 0.6 Eos # (Auto) 0.0 Baso # (Auto) 0.0 CBC Comment AUTO DIFF WBC Differential Total Counted 100 Neutrophils % (Manual) 78 H Seg Neuts % (Manual) Band Neutrophils % 1 Band Neuts % (Manual) Lymphocytes % 15 Lymphocytes % (Manual) Monocytes % 5 Monocytes % (Manual) Eosinophils % Eosinophils % (Manual) Basophils % Metamyelocytes % (Man) Neutrophils # (Manual) 6.8 Abs Neuts (Manual) Metamyelocytes Myelocytes 1 H Nucleated RBCs Differential Comment FINAL DIFF MANUAL Smudge Cells Toxic Granulation Toxic Vacuolation Dohle Bodies Platelet Estimate NORMAL Platelet Morphology Plt Morphology Comment ENLARGED H Basophilic Stippling Spherocytes Tear Drop Cells Ovalocytes Acanthocytes (Spur) RBC Morph Comment ESR Hematology Comments PT INR APTT 33.9 H Fibrinogen Puncture Site Patient Temperature HCO3 Base Excess O2 Saturation ABG pH ABG pCO2 ABG pO2 ABG HCO3 ABG O2 Content ABG Base Excess ABG Carboxyhemoglobin ABG Methemoglobin Stepan Test Hemoglobin Carboxyhemoglobin O2 Delivery Device Liter Flow Vent Setting Inspired O2 Critical Value Sodium 142 Potassium 3.3 L Chloride 106 Carbon Dioxide 25.6 Anion Gap 10 BUN 33 H Creatinine 1.58 H Estimated GFR 43 L POC Glucose Random Glucose 148 H Hemoglobin A1c Lactic Acid Calcium 7.1 L* Prot Corrected Calcium 8.4 L Phosphorus Magnesium Total Bilirubin 0.3 Direct Bilirubin Indirect Bilirubin AST 18 ALT 10 L Alkaline Phosphatase 70 Ammonia Total Creatine Kinase Troponin I C-Reactive Protein B-Natriuretic Peptide Total Protein 4.7 L Albumin 1.1 L Prealbumin Triglycerides Cholesterol LDL Cholesterol HDL Cholesterol Cholesterol/HDL Ratio Thiamine Vitamin B12 Procalcitonin Free T4 TSH 3rd Generation Urine Color Urine Clarity Urine Turbidity Urine pH Ur Specific [place] Urine Protein Urine Glucose (UA) Urine Ketones Urine Occult Blood Urine Nitrate Urine Nitrite Urine Bilirubin Urine Urobilinogen Ur Leukocyte Esterase Urine RBC Urine WBC Urine WBC Clumps Ur Squamous Epith Cells Ur Transition Epith Cell Ur Renal Epithelial Cell Amorphous Sediment Urine Bacteria Hyaline Casts Granular Casts Urine Mucus Micro UA Comment Urine Culture Comments Urine Eosinophils Urine Osmolality Ur Random Creatinine Ur Random Sodium Pleural pH Pleural WBC Pleural Nuc Cells Pleural RBC Pleural Neutrophils Pleural Eosinophils Pleural Lymphocytes Pleural Monocytes Pleural Histocytes Pleural Mesothelial Pleural Total Protein Pleural Amylase Pleural LDH Pleural Glucose Nasal Screen MRSA (PCR) Stl C.difficile Tox PCR St C. diff Tox Epid 027 Vancomycin Trough Random Vancomycin Phenytoin Free Phenytoin LOWELL Screen RPR Blood Type Antibody Screen MTS Gel Crossmatch Blood Bank Comment 11/30/17 11/30/17 11/30/17 15:22 15:22 22:35 WBC RBC Hgb Hct MCV MCH MCHC RDW Plt Count MPV Prelim Diff (Auto) Neut % (Auto) Lymph % (Auto) [place] % (Auto) Eos % (Auto) Baso % (Auto) Neut # (Auto) Lymph # (Auto) [place] # (Auto) Eos # (Auto) Baso # (Auto) CBC Comment WBC Differential Total Counted Neutrophils % (Manual) Seg Neuts % (Manual) Band Neutrophils % Band Neuts % (Manual) Lymphocytes % Lymphocytes % (Manual) Monocytes % Monocytes % (Manual) Eosinophils % Eosinophils % (Manual) Basophils % Metamyelocytes % (Man) Neutrophils # (Manual) Abs Neuts (Manual) Metamyelocytes Myelocytes Nucleated RBCs Differential Comment Smudge Cells Toxic Granulation Toxic Vacuolation Dohle Bodies Platelet Estimate Platelet Morphology Plt Morphology Comment Basophilic Stippling Spherocytes Tear Drop Cells Ovalocytes Acanthocytes (Spur) RBC Morph Comment ESR Hematology Comments PT INR APTT Fibrinogen Puncture Site Patient Temperature HCO3 Base Excess O2 Saturation ABG pH ABG pCO2 ABG pO2 ABG HCO3 ABG O2 Content ABG Base Excess ABG Carboxyhemoglobin ABG Methemoglobin Stepan Test Hemoglobin Carboxyhemoglobin O2 Delivery Device Liter Flow Vent Setting Inspired O2 Critical Value Sodium Potassium 3.7 Chloride Carbon Dioxide Anion Gap BUN Creatinine Estimated GFR POC Glucose Random Glucose Hemoglobin A1c Lactic Acid Calcium Prot Corrected Calcium Phosphorus Magnesium Total Bilirubin Direct Bilirubin Indirect Bilirubin AST ALT Alkaline Phosphatase Ammonia Total Creatine Kinase Troponin I C-Reactive Protein B-Natriuretic Peptide Total Protein Albumin Prealbumin Triglycerides Cholesterol LDL Cholesterol HDL Cholesterol Cholesterol/HDL Ratio Thiamine Vitamin B12 Procalcitonin Free T4 TSH 3rd Generation Urine Color Urine Clarity Urine Turbidity Urine pH Ur Specific [place] Urine Protein Urine Glucose (UA) Urine Ketones Urine Occult Blood Urine Nitrate Urine Nitrite Urine Bilirubin Urine Urobilinogen Ur Leukocyte Esterase Urine RBC Urine WBC Urine WBC Clumps Ur Squamous Epith Cells Ur Transition Epith Cell Ur Renal Epithelial Cell Amorphous Sediment Urine Bacteria Hyaline Casts Granular Casts Urine Mucus Micro UA Comment Urine Culture Comments Urine Eosinophils Urine Osmolality Ur Random Creatinine Ur Random Sodium Pleural pH 8.0 Pleural WBC 91 H Pleural Nuc Cells Pleural RBC 50 H Pleural Neutrophils 3 Pleural Eosinophils Pleural Lymphocytes 86 Pleural Monocytes 2 Pleural Histocytes 6 Pleural Mesothelial 3 Pleural Total Protein 2.1 Pleural Amylase Pleural LDH 130 Pleural Glucose 152 Nasal Screen MRSA (PCR) Stl C.difficile Tox PCR St C. diff Tox Epid 027 Vancomycin Trough Random Vancomycin Phenytoin Free Phenytoin LOWELL Screen RPR Blood Type Antibody Screen MTS Gel Crossmatch Blood Bank Comment 11/30/17 12/01/17 12/01/17 22:35 04:21 04:21 WBC 8.8 RBC 2.84 L Hgb 8.6 L Hct 25.8 L MCV 91.1 MCH 30.4 MCHC 33.4 RDW 18.2 H Plt Count 228 MPV 10.1 Prelim Diff (Auto) Neut % (Auto) 64.5 Lymph % (Auto) 28.2 [place] % (Auto) 7.2 Eos % (Auto) 0.0 Baso % (Auto) 0.1 Neut # (Auto) 5.7 Lymph # (Auto) 2.5 [place] # (Auto) 0.6 Eos # (Auto) 0.0 Baso # (Auto) 0.0 CBC Comment DIFF FINAL WBC Differential Total Counted Neutrophils % (Manual) Seg Neuts % (Manual) Band Neutrophils % Band Neuts % (Manual) Lymphocytes % Lymphocytes % (Manual) Monocytes % Monocytes % (Manual) Eosinophils % Eosinophils % (Manual) Basophils % Metamyelocytes % (Man) Neutrophils # (Manual) Abs Neuts (Manual) Metamyelocytes Myelocytes Nucleated RBCs Differential Comment Smudge Cells Toxic Granulation Toxic Vacuolation Dohle Bodies Platelet Estimate Platelet Morphology Plt Morphology Comment Basophilic Stippling Spherocytes Tear Drop Cells Ovalocytes Acanthocytes (Spur) RBC Morph Comment ESR Hematology Comments PT INR APTT 28.6 Fibrinogen Puncture Site Patient Temperature HCO3 Base Excess O2 Saturation ABG pH ABG pCO2 ABG pO2 ABG HCO3 ABG O2 Content ABG Base Excess ABG Carboxyhemoglobin ABG Methemoglobin Stepan Test Hemoglobin Carboxyhemoglobin O2 Delivery Device Liter Flow Vent Setting Inspired O2 Critical Value Sodium 141 Potassium 3.6 Chloride 105 Carbon Dioxide 26.4 Anion Gap 10 BUN 30 H Creatinine 1.49 H Estimated GFR 46 L POC Glucose Random Glucose 156 H Hemoglobin A1c Lactic Acid Calcium 6.8 L* Prot Corrected Calcium 8.1 L Phosphorus Magnesium Total Bilirubin Direct Bilirubin Indirect Bilirubin AST ALT Alkaline Phosphatase Ammonia Total Creatine Kinase Troponin I C-Reactive Protein B-Natriuretic Peptide Total Protein 4.7 L Albumin Prealbumin Triglycerides 177 H Cholesterol 78 L LDL Cholesterol 16 HDL Cholesterol 26.2 L Cholesterol/HDL Ratio 2.97 Thiamine Vitamin B12 Procalcitonin Free T4 TSH 3rd Generation Urine Color Urine Clarity Urine Turbidity Urine pH Ur Specific [place] Urine Protein Urine Glucose (UA) Urine Ketones Urine Occult Blood Urine Nitrate Urine Nitrite Urine Bilirubin Urine Urobilinogen Ur Leukocyte Esterase Urine RBC Urine WBC Urine WBC Clumps Ur Squamous Epith Cells Ur Transition Epith Cell Ur Renal Epithelial Cell Amorphous Sediment Urine Bacteria Hyaline Casts Granular Casts Urine Mucus Micro UA Comment Urine Culture Comments Urine Eosinophils Urine Osmolality Ur Random Creatinine Ur Random Sodium Pleural pH Pleural WBC Pleural Nuc Cells Pleural RBC Pleural Neutrophils Pleural Eosinophils Pleural Lymphocytes Pleural Monocytes Pleural Histocytes Pleural Mesothelial Pleural Total Protein Pleural Amylase Pleural LDH Pleural Glucose Nasal Screen MRSA (PCR) Stl C.difficile Tox PCR St C. diff Tox Epid 027 Vancomycin Trough Random Vancomycin Phenytoin Free Phenytoin LOWELL Screen RPR Blood Type Antibody Screen MTS Gel Crossmatch Blood Bank Comment 12/01/17 12/01/1718 09:41 15:57 22:17 WBC RBC Hgb Hct MCV MCH MCHC RDW Plt Count MPV Prelim Diff (Auto) Neut % (Auto) Lymph % (Auto) [place] % (Auto) Eos % (Auto) Baso % (Auto) Neut # (Auto) Lymph # (Auto) [place] # (Auto) Eos # (Auto) Baso # (Auto) CBC Comment WBC Differential Total Counted Neutrophils % (Manual) Seg Neuts % (Manual) Band Neutrophils % Band Neuts % (Manual) Lymphocytes % Lymphocytes % (Manual) Monocytes % Monocytes % (Manual) Eosinophils % Eosinophils % (Manual) Basophils % Metamyelocytes % (Man) Neutrophils # (Manual) Abs Neuts (Manual) Metamyelocytes Myelocytes Nucleated RBCs Differential Comment Smudge Cells Toxic Granulation Toxic Vacuolation Dohle Bodies Platelet Estimate Platelet Morphology Plt Morphology Comment Basophilic Stippling Spherocytes Tear Drop Cells Ovalocytes Acanthocytes (Spur) RBC Morph Comment ESR Hematology Comments PT INR APTT 38.7 H D 58.1 H D 40.2 H D Fibrinogen Puncture Site Patient Temperature HCO3 Base Excess O2 Saturation ABG pH ABG pCO2 ABG pO2 ABG HCO3 ABG O2 Content ABG Base Excess ABG Carboxyhemoglobin ABG Methemoglobin Stepan Test Hemoglobin Carboxyhemoglobin O2 Delivery Device Liter Flow Vent Setting Inspired O2 Critical Value Sodium Potassium Chloride Carbon Dioxide Anion Gap BUN Creatinine Estimated GFR POC Glucose Random Glucose Hemoglobin A1c Lactic Acid Calcium Prot Corrected Calcium Phosphorus Magnesium Total Bilirubin Direct Bilirubin Indirect Bilirubin AST ALT Alkaline Phosphatase Ammonia Total Creatine Kinase Troponin I C-Reactive Protein B-Natriuretic Peptide Total Protein Albumin Prealbumin Triglycerides Cholesterol LDL Cholesterol HDL Cholesterol Cholesterol/HDL Ratio Thiamine Vitamin B12 Procalcitonin Free T4 TSH 3rd Generation Urine Color Urine Clarity Urine Turbidity Urine pH Ur Specific [place] Urine Protein Urine Glucose (UA) Urine Ketones Urine Occult Blood Urine Nitrate Urine Nitrite Urine Bilirubin Urine Urobilinogen Ur Leukocyte Esterase Urine RBC Urine WBC Urine WBC Clumps Ur Squamous Epith Cells Ur Transition Epith Cell Ur Renal Epithelial Cell Amorphous Sediment Urine Bacteria Hyaline Casts Granular Casts Urine Mucus Micro UA Comment Urine Culture Comments Urine Eosinophils Urine Osmolality Ur Random Creatinine Ur Random Sodium Pleural pH Pleural WBC Pleural Nuc Cells Pleural RBC Pleural Neutrophils Pleural Eosinophils Pleural Lymphocytes Pleural Monocytes Pleural Histocytes Pleural Mesothelial Pleural Total Protein Pleural Amylase Pleural LDH Pleural Glucose Nasal Screen MRSA (PCR) Stl C.difficile Tox PCR St C. diff Tox Epid 027 Vancomycin Trough Random Vancomycin Phenytoin Free Phenytoin LOWELL Screen RPR Blood Type Antibody Screen MTS Gel Crossmatch Blood Bank Comment 12/02/17 12/02/17 12/02/17 03:31 03:31 03:31 WBC 7.9 RBC 2.37 L Hgb 7.1 L Hct 21.2 L MCV 89.6 MCH 29.9 MCHC 33.4 RDW 17.9 H Plt Count 237 MPV 9.8 Prelim Diff (Auto) Neut % (Auto) 64.7 Lymph % (Auto) 29.2 [place] % (Auto) 5.9 Eos % (Auto) 0.0 Baso % (Auto) 0.2 Neut # (Auto) 5.1 Lymph # (Auto) 2.3 [place] # (Auto) 0.5 Eos # (Auto) 0.0 Baso # (Auto) 0.0 CBC Comment DIFF FINAL WBC Differential Total Counted Neutrophils % (Manual) Seg Neuts % (Manual) Band Neutrophils % Band Neuts % (Manual) Lymphocytes % Lymphocytes % (Manual) Monocytes % Monocytes % (Manual) Eosinophils % Eosinophils % (Manual) Basophils % Metamyelocytes % (Man) Neutrophils # (Manual) Abs Neuts (Manual) Metamyelocytes Myelocytes Nucleated RBCs Differential Comment Smudge Cells Toxic Granulation Toxic Vacuolation Dohle Bodies Platelet Estimate Platelet Morphology Plt Morphology Comment Basophilic Stippling Spherocytes Tear Drop Cells Ovalocytes Acanthocytes (Spur) RBC Morph Comment ESR Hematology Comments PT INR APTT 50.6 H D Fibrinogen Puncture Site Patient Temperature HCO3 Base Excess O2 Saturation ABG pH ABG pCO2 ABG pO2 ABG HCO3 ABG O2 Content ABG Base Excess ABG Carboxyhemoglobin ABG Methemoglobin Stepan Test Hemoglobin Carboxyhemoglobin O2 Delivery Device Liter Flow Vent Setting Inspired O2 Critical Value Sodium 144 Potassium 3.1 L Chloride 106 Carbon Dioxide 28.0 Anion Gap 10 BUN 31 H Creatinine 1.51 H Estimated GFR 45 L POC Glucose Random Glucose 252 H Hemoglobin A1c Lactic Acid Calcium 6.8 L* Prot Corrected Calcium 8.1 L Phosphorus 3.0 Magnesium 2.1 Total Bilirubin Direct Bilirubin Indirect Bilirubin AST ALT Alkaline Phosphatase Ammonia Total Creatine Kinase Troponin I C-Reactive Protein B-Natriuretic Peptide Total Protein 4.7 L Albumin Prealbumin Triglycerides Cholesterol LDL Cholesterol HDL Cholesterol Cholesterol/HDL Ratio Thiamine Vitamin B12 Procalcitonin Free T4 TSH 3rd Generation Urine Color Urine Clarity Urine Turbidity Urine pH Ur Specific [place] Urine Protein Urine Glucose (UA) Urine Ketones Urine Occult Blood Urine Nitrate Urine Nitrite Urine Bilirubin Urine Urobilinogen Ur Leukocyte Esterase Urine RBC Urine WBC Urine WBC Clumps Ur Squamous Epith Cells Ur Transition Epith Cell Ur Renal Epithelial Cell Amorphous Sediment Urine Bacteria Hyaline Casts Granular Casts Urine Mucus Micro UA Comment Urine Culture Comments Urine Eosinophils Urine Osmolality Ur Random Creatinine Ur Random Sodium Pleural pH Pleural WBC Pleural Nuc Cells Pleural RBC Pleural Neutrophils Pleural Eosinophils Pleural Lymphocytes Pleural Monocytes Pleural Histocytes Pleural Mesothelial Pleural Total Protein Pleural Amylase Pleural LDH Pleural Glucose Nasal Screen MRSA (PCR) Stl C.difficile Tox PCR St C. diff Tox Epid 027 Vancomycin Trough Random Vancomycin Phenytoin Free Phenytoin LOWELL Screen RPR Blood Type Antibody Screen MTS Gel Crossmatch Blood Bank Comment 12/02/17 12/02/17 12/02/17 08:40 18:54 18:54 WBC RBC Hgb 8.9 L Hct 27.0 L MCV MCH MCHC RDW Plt Count MPV Prelim Diff (Auto) Neut % (Auto) Lymph % (Auto) [place] % (Auto) Eos % (Auto) Baso % (Auto) Neut # (Auto) Lymph # (Auto) [place] # (Auto) Eos # (Auto) Baso # (Auto) CBC Comment WBC Differential Total Counted Neutrophils % (Manual) Seg Neuts % (Manual) Band Neutrophils % Band Neuts % (Manual) Lymphocytes % Lymphocytes % (Manual) Monocytes % Monocytes % (Manual) Eosinophils % Eosinophils % (Manual) Basophils % Metamyelocytes % (Man) Neutrophils # (Manual) Abs Neuts (Manual) Metamyelocytes Myelocytes Nucleated RBCs Differential Comment Smudge Cells Toxic Granulation Toxic Vacuolation Dohle Bodies Platelet Estimate Platelet Morphology Plt Morphology Comment Basophilic Stippling Spherocytes Tear Drop Cells Ovalocytes Acanthocytes (Spur) RBC Morph Comment ESR Hematology Comments PT 11.5 INR 1.1 APTT Fibrinogen Puncture Site Patient Temperature HCO3 Base Excess O2 Saturation ABG pH ABG pCO2 ABG pO2 ABG HCO3 ABG O2 Content ABG Base Excess ABG Carboxyhemoglobin ABG Methemoglobin Stepan Test Hemoglobin Carboxyhemoglobin O2 Delivery Device Liter Flow Vent Setting Inspired O2 Critical Value Sodium Potassium 3.3 L Chloride Carbon Dioxide Anion Gap BUN Creatinine Estimated GFR POC Glucose Random Glucose Hemoglobin A1c Lactic Acid Calcium Prot Corrected Calcium Phosphorus Magnesium Total Bilirubin Direct Bilirubin Indirect Bilirubin AST ALT Alkaline Phosphatase Ammonia Total Creatine Kinase Troponin I C-Reactive Protein B-Natriuretic Peptide Total Protein Albumin Prealbumin Triglycerides Cholesterol LDL Cholesterol HDL Cholesterol Cholesterol/HDL Ratio Thiamine Vitamin B12 Procalcitonin Free T4 TSH 3rd Generation Urine Color Urine Clarity Urine Turbidity Urine pH Ur Specific [place] Urine Protein Urine Glucose (UA) Urine Ketones Urine Occult Blood Urine Nitrate Urine Nitrite Urine Bilirubin Urine Urobilinogen Ur Leukocyte Esterase Urine RBC Urine WBC Urine WBC Clumps Ur Squamous Epith Cells Ur Transition Epith Cell Ur Renal Epithelial Cell Amorphous Sediment Urine Bacteria Hyaline Casts Granular Casts Urine Mucus Micro UA Comment Urine Culture Comments Urine Eosinophils Urine Osmolality Ur Random Creatinine Ur Random Sodium Pleural pH Pleural WBC Pleural Nuc Cells Pleural RBC Pleural Neutrophils Pleural Eosinophils Pleural Lymphocytes Pleural Monocytes Pleural Histocytes Pleural Mesothelial Pleural Total Protein Pleural Amylase Pleural LDH Pleural Glucose Nasal Screen MRSA (PCR) Stl C.difficile Tox PCR St C. diff Tox Epid 027 Vancomycin Trough Random Vancomycin Phenytoin Free Phenytoin LOWELL Screen RPR Blood Type Antibody Screen MTS Gel Crossmatch Blood Bank Comment 12/03/17 12/03/17 12/03/17 00:39 05:05 05:05 WBC 10.7 RBC 2.64 L Hgb 8.3 L 8.0 L Hct 25.5 L 24.1 L MCV 91.1 MCH 30.3 MCHC 33.2 RDW 18.5 H Plt Count 209 MPV 9.8 Prelim Diff (Auto) Neut % (Auto) 61.7 Lymph % (Auto) 29.2 [place] % (Auto) 8.9 H Eos % (Auto) 0.1 Baso % (Auto) 0.1 Neut # (Auto) 6.6 Lymph # (Auto) 3.1 [place] # (Auto) 1.0 H Eos # (Auto) 0.0 Baso # (Auto) 0.0 CBC Comment DIFF FINAL WBC Differential Total Counted Neutrophils % (Manual) Seg Neuts % (Manual) Band Neutrophils % Band Neuts % (Manual) Lymphocytes % Lymphocytes % (Manual) Monocytes % Monocytes % (Manual) Eosinophils % Eosinophils % (Manual) Basophils % Metamyelocytes % (Man) Neutrophils # (Manual) Abs Neuts (Manual) Metamyelocytes Myelocytes Nucleated RBCs Differential Comment Smudge Cells Toxic Granulation Toxic Vacuolation Dohle Bodies Platelet Estimate Platelet Morphology Plt Morphology Comment Basophilic Stippling Spherocytes Tear Drop Cells Ovalocytes Acanthocytes (Spur) RBC Morph Comment ESR Hematology Comments PT INR APTT Fibrinogen Puncture Site Patient Temperature HCO3 Base Excess O2 Saturation ABG pH ABG pCO2 ABG pO2 ABG HCO3 ABG O2 Content ABG Base Excess ABG Carboxyhemoglobin ABG Methemoglobin Stepan Test Hemoglobin Carboxyhemoglobin O2 Delivery Device Liter Flow Vent Setting Inspired O2 Critical Value Sodium 142 Potassium 3.9 Chloride 108 H Carbon Dioxide 24.9 Anion Gap 9 BUN 27 H Creatinine 1.28 Estimated GFR 54 L POC Glucose Random Glucose 147 H D Hemoglobin A1c Lactic Acid Calcium 6.9 L* Prot Corrected Calcium 8.2 L Phosphorus Magnesium Total Bilirubin Direct Bilirubin Indirect Bilirubin AST ALT Alkaline Phosphatase Ammonia Total Creatine Kinase Troponin I C-Reactive Protein B-Natriuretic Peptide Total Protein 4.6 L Albumin Prealbumin Triglycerides Cholesterol LDL Cholesterol HDL Cholesterol Cholesterol/HDL Ratio Thiamine Vitamin B12 Procalcitonin Free T4 TSH 3rd Generation Urine Color Urine Clarity Urine Turbidity Urine pH Ur Specific [place] Urine Protein Urine Glucose (UA) Urine Ketones Urine Occult Blood Urine Nitrate Urine Nitrite Urine Bilirubin Urine Urobilinogen Ur Leukocyte Esterase Urine RBC Urine WBC Urine WBC Clumps Ur Squamous Epith Cells Ur Transition Epith Cell Ur Renal Epithelial Cell Amorphous Sediment Urine Bacteria Hyaline Casts Granular Casts Urine Mucus Micro UA Comment Urine Culture Comments Urine Eosinophils Urine Osmolality Ur Random Creatinine Ur Random Sodium Pleural pH Pleural WBC Pleural Nuc Cells Pleural RBC Pleural Neutrophils Pleural Eosinophils Pleural Lymphocytes Pleural Monocytes Pleural Histocytes Pleural Mesothelial Pleural Total Protein Pleural Amylase Pleural LDH Pleural Glucose Nasal Screen MRSA (PCR) Stl C.difficile Tox PCR St C. diff Tox Epid 027 Vancomycin Trough Random Vancomycin Phenytoin Free Phenytoin LOWELL Screen RPR Blood Type Antibody Screen MTS Gel Crossmatch Blood Bank Comment 12/03/17 12/03/17 12/03/17 11:02 11:02 17:45 WBC RBC Hgb 7.4 L 9.2 L Hct 21.8 L 27.6 L MCV MCH MCHC RDW Plt Count MPV Prelim Diff (Auto) Neut % (Auto) Lymph % (Auto) [place] % (Auto) Eos % (Auto) Baso % (Auto) Neut # (Auto) Lymph # (Auto) [place] # (Auto) Eos # (Auto) Baso # (Auto) CBC Comment WBC Differential Total Counted Neutrophils % (Manual) Seg Neuts % (Manual) Band Neutrophils % Band Neuts % (Manual) Lymphocytes % Lymphocytes % (Manual) Monocytes % Monocytes % (Manual) Eosinophils % Eosinophils % (Manual) Basophils % Metamyelocytes % (Man) Neutrophils # (Manual) Abs Neuts (Manual) Metamyelocytes Myelocytes Nucleated RBCs Differential Comment Smudge Cells Toxic Granulation Toxic Vacuolation Dohle Bodies Platelet Estimate Platelet Morphology Plt Morphology Comment Basophilic Stippling Spherocytes Tear Drop Cells Ovalocytes Acanthocytes (Spur) RBC Morph Comment ESR Hematology Comments PT INR APTT 43.7 H Fibrinogen Puncture Site Patient Temperature HCO3 Base Excess O2 Saturation ABG pH ABG pCO2 ABG pO2 ABG HCO3 ABG O2 Content ABG Base Excess ABG Carboxyhemoglobin ABG Methemoglobin Stepan Test Hemoglobin Carboxyhemoglobin O2 Delivery Device Liter Flow Vent Setting Inspired O2 Critical Value Sodium Potassium Chloride Carbon Dioxide Anion Gap BUN Creatinine Estimated GFR POC Glucose Random Glucose Hemoglobin A1c Lactic Acid Calcium Prot Corrected Calcium Phosphorus Magnesium Total Bilirubin Direct Bilirubin Indirect Bilirubin AST ALT Alkaline Phosphatase Ammonia Total Creatine Kinase Troponin I C-Reactive Protein B-Natriuretic Peptide Total Protein Albumin Prealbumin Triglycerides Cholesterol LDL Cholesterol HDL Cholesterol Cholesterol/HDL Ratio Thiamine Vitamin B12 Procalcitonin Free T4 TSH 3rd Generation Urine Color Urine Clarity Urine Turbidity Urine pH Ur Specific [place] Urine Protein Urine Glucose (UA) Urine Ketones Urine Occult Blood Urine Nitrate Urine Nitrite Urine Bilirubin Urine Urobilinogen Ur Leukocyte Esterase Urine RBC Urine WBC Urine WBC Clumps Ur Squamous Epith Cells Ur Transition Epith Cell Ur Renal Epithelial Cell Amorphous Sediment Urine Bacteria Hyaline Casts Granular Casts Urine Mucus Micro UA Comment Urine Culture Comments Urine Eosinophils Urine Osmolality Ur Random Creatinine Ur Random Sodium Pleural pH Pleural WBC Pleural Nuc Cells Pleural RBC Pleural Neutrophils Pleural Eosinophils Pleural Lymphocytes Pleural Monocytes Pleural Histocytes Pleural Mesothelial Pleural Total Protein Pleural Amylase Pleural LDH Pleural Glucose Nasal Screen MRSA (PCR) Stl C.difficile Tox PCR St C. diff Tox Epid 027 Vancomycin Trough Random Vancomycin Phenytoin Free Phenytoin LOWELL Screen RPR Blood Type Antibody Screen MTS Gel Crossmatch Blood Bank Comment 12/04/17 12/04/17 12/04/17 00:26 04:25 04:25 WBC 8.2 RBC 2.74 L Hgb 7.9 L 8.4 L Hct 23.5 L 25.3 L MCV 92.2 MCH 30.5 MCHC 33.1 RDW 16.9 Plt Count 213 MPV 9.3 Prelim Diff (Auto) Neut % (Auto) 65.3 Lymph % (Auto) 24.8 [place] % (Auto) 9.5 H Eos % (Auto) 0.2 Baso % (Auto) 0.2 Neut # (Auto) 5.4 Lymph # (Auto) 2.0 [place] # (Auto) 0.8 Eos # (Auto) 0.0 Baso # (Auto) 0.0 CBC Comment DIFF FINAL WBC Differential Total Counted Neutrophils % (Manual) Seg Neuts % (Manual) Band Neutrophils % Band Neuts % (Manual) Lymphocytes % Lymphocytes % (Manual) Monocytes % Monocytes % (Manual) Eosinophils % Eosinophils % (Manual) Basophils % Metamyelocytes % (Man) Neutrophils # (Manual) Abs Neuts (Manual) Metamyelocytes Myelocytes Nucleated RBCs Differential Comment Smudge Cells Toxic Granulation Toxic Vacuolation Dohle Bodies Platelet Estimate Platelet Morphology Plt Morphology Comment Basophilic Stippling Spherocytes Tear Drop Cells Ovalocytes Acanthocytes (Spur) RBC Morph Comment ESR Hematology Comments PT INR APTT Fibrinogen Puncture Site Patient Temperature HCO3 Base Excess O2 Saturation ABG pH ABG pCO2 ABG pO2 ABG HCO3 ABG O2 Content ABG Base Excess ABG Carboxyhemoglobin ABG Methemoglobin Stepan Test Hemoglobin Carboxyhemoglobin O2 Delivery Device Liter Flow Vent Setting Inspired O2 Critical Value Sodium 143 Potassium 3.1 L D Chloride 107 Carbon Dioxide 23.0 Anion Gap 13 BUN 27 H Creatinine 1.40 H Estimated GFR 49 L POC Glucose Random Glucose 165 H Hemoglobin A1c Lactic Acid Calcium 6.9 L* Prot Corrected Calcium 8.4 L Phosphorus Magnesium 2.0 Total Bilirubin Direct Bilirubin Indirect Bilirubin AST ALT Alkaline Phosphatase Ammonia Total Creatine Kinase Troponin I C-Reactive Protein B-Natriuretic Peptide Total Protein 4.3 L Albumin Prealbumin Triglycerides Cholesterol LDL Cholesterol HDL Cholesterol Cholesterol/HDL Ratio Thiamine Vitamin B12 Procalcitonin Free T4 TSH 3rd Generation Urine Color Urine Clarity Urine Turbidity Urine pH Ur Specific [place] Urine Protein Urine Glucose (UA) Urine Ketones Urine Occult Blood Urine Nitrate Urine Nitrite Urine Bilirubin Urine Urobilinogen Ur Leukocyte Esterase Urine RBC Urine WBC Urine WBC Clumps Ur Squamous Epith Cells Ur Transition Epith Cell Ur Renal Epithelial Cell Amorphous Sediment Urine Bacteria Hyaline Casts Granular Casts Urine Mucus Micro UA Comment Urine Culture Comments Urine Eosinophils Urine Osmolality Ur Random Creatinine Ur Random Sodium Pleural pH Pleural WBC Pleural Nuc Cells Pleural RBC Pleural Neutrophils Pleural Eosinophils Pleural Lymphocytes Pleural Monocytes Pleural Histocytes Pleural Mesothelial Pleural Total Protein Pleural Amylase Pleural LDH Pleural Glucose Nasal Screen MRSA (PCR) Stl C.difficile Tox PCR St C. diff Tox Epid 027 Vancomycin Trough Random Vancomycin Phenytoin Free Phenytoin LOWELL Screen RPR Blood Type Antibody Screen MTS Gel Crossmatch Blood Bank Comment 12/04/17 12/05/17 12/05/17 11:57 04:39 04:39 WBC 7.3 RBC 2.29 L Hgb 7.0 L 7.0 L Hct 20.3 L* 20.6 L* MCV 89.6 MCH 30.3 MCHC 33.9 RDW 18.4 H Plt Count 196 MPV 9.3 Prelim Diff (Auto) Neut % (Auto) 62.9 Lymph % (Auto) 27.9 [place] % (Auto) 8.6 H Eos % (Auto) 0.3 Baso % (Auto) 0.3 Neut # (Auto) 4.6 Lymph # (Auto) 2.0 [place] # (Auto) 0.6 Eos # (Auto) 0.0 Baso # (Auto) 0.0 CBC Comment DIFF FINAL WBC Differential Total Counted Neutrophils % (Manual) Seg Neuts % (Manual) Band Neutrophils % Band Neuts % (Manual) Lymphocytes % Lymphocytes % (Manual) Monocytes % Monocytes % (Manual) Eosinophils % Eosinophils % (Manual) Basophils % Metamyelocytes % (Man) Neutrophils # (Manual) Abs Neuts (Manual) Metamyelocytes Myelocytes Nucleated RBCs Differential Comment Smudge Cells Toxic Granulation Toxic Vacuolation Dohle Bodies Platelet Estimate Platelet Morphology Plt Morphology Comment Basophilic Stippling Spherocytes Tear Drop Cells Ovalocytes Acanthocytes (Spur) RBC Morph Comment ESR Hematology Comments PT 12.5 H INR 1.2 APTT 28.3 D Fibrinogen 242 Puncture Site Patient Temperature HCO3 Base Excess O2 Saturation ABG pH ABG pCO2 ABG pO2 ABG HCO3 ABG O2 Content ABG Base Excess ABG Carboxyhemoglobin ABG Methemoglobin Stepan Test Hemoglobin Carboxyhemoglobin O2 Delivery Device Liter Flow Vent Setting Inspired O2 Critical Value Sodium Potassium Chloride Carbon Dioxide Anion Gap BUN Creatinine Estimated GFR POC Glucose Random Glucose Hemoglobin A1c Lactic Acid Calcium Prot Corrected Calcium Phosphorus Magnesium Total Bilirubin Direct Bilirubin Indirect Bilirubin AST ALT Alkaline Phosphatase Ammonia Total Creatine Kinase Troponin I C-Reactive Protein B-Natriuretic Peptide Total Protein Albumin Prealbumin Triglycerides Cholesterol LDL Cholesterol HDL Cholesterol Cholesterol/HDL Ratio Thiamine Vitamin B12 Procalcitonin Free T4 TSH 3rd Generation Urine Color Urine Clarity Urine Turbidity Urine pH Ur Specific [place] Urine Protein Urine Glucose (UA) Urine Ketones Urine Occult Blood Urine Nitrate Urine Nitrite Urine Bilirubin Urine Urobilinogen Ur Leukocyte Esterase Urine RBC Urine WBC Urine WBC Clumps Ur Squamous Epith Cells Ur Transition Epith Cell Ur Renal Epithelial Cell Amorphous Sediment Urine Bacteria Hyaline Casts Granular Casts Urine Mucus Micro UA Comment Urine Culture Comments Urine Eosinophils Urine Osmolality Ur Random Creatinine Ur Random Sodium Pleural pH Pleural WBC Pleural Nuc Cells Pleural RBC Pleural Neutrophils Pleural Eosinophils Pleural Lymphocytes Pleural Monocytes Pleural Histocytes Pleural Mesothelial Pleural Total Protein Pleural Amylase Pleural LDH Pleural Glucose Nasal Screen MRSA (PCR) Stl C.difficile Tox PCR St C. diff Tox Epid 027 Vancomycin Trough Random Vancomycin Phenytoin Free Phenytoin LOWELL Screen RPR Blood Type Antibody Screen MTS Gel Crossmatch Blood Bank Comment 12/05/17 12/05/17 12/05/17 04:39 04:39 11:32 WBC RBC Hgb Hct MCV MCH MCHC RDW Plt Count MPV Prelim Diff (Auto) Neut % (Auto) Lymph % (Auto) [place] % (Auto) Eos % (Auto) Baso % (Auto) Neut # (Auto) Lymph # (Auto) [place] # (Auto) Eos # (Auto) Baso # (Auto) CBC Comment WBC Differential Total Counted Neutrophils % (Manual) Seg Neuts % (Manual) Band Neutrophils % Band Neuts % (Manual) Lymphocytes % Lymphocytes % (Manual) Monocytes % Monocytes % (Manual) Eosinophils % Eosinophils % (Manual) Basophils % Metamyelocytes % (Man) Neutrophils # (Manual) Abs Neuts (Manual) Metamyelocytes Myelocytes Nucleated RBCs Differential Comment Smudge Cells Toxic Granulation Toxic Vacuolation Dohle Bodies Platelet Estimate Platelet Morphology Plt Morphology Comment Basophilic Stippling Spherocytes Tear Drop Cells Ovalocytes Acanthocytes (Spur) RBC Morph Comment ESR Hematology Comments PT INR APTT Fibrinogen 239 Puncture Site Patient Temperature HCO3 Base Excess O2 Saturation ABG pH ABG pCO2 ABG pO2 ABG HCO3 ABG O2 Content ABG Base Excess ABG Carboxyhemoglobin ABG Methemoglobin Stepan Test Hemoglobin Carboxyhemoglobin O2 Delivery Device Liter Flow Vent Setting Inspired O2 Critical Value Sodium 145 Potassium 3.5 Chloride 110 H Carbon Dioxide 24.7 Anion Gap 10 BUN 25 H Creatinine 1.50 H Estimated GFR 45 L POC Glucose Random Glucose 180 H Hemoglobin A1c Lactic Acid Calcium 6.9 L* Cancelled Prot Corrected Calcium 8.3 L Cancelled Phosphorus 3.3 Magnesium 2.0 Total Bilirubin 0.3 Direct Bilirubin 0.1 Indirect Bilirubin 0.2 AST 24 ALT 20 Alkaline Phosphatase 59 Ammonia Total Creatine Kinase Troponin I C-Reactive Protein B-Natriuretic Peptide Total Protein 4.5 L Cancelled Albumin 1.1 L Prealbumin Triglycerides Cholesterol LDL Cholesterol HDL Cholesterol Cholesterol/HDL Ratio Thiamine Vitamin B12 Procalcitonin Free T4 TSH 3rd Generation Urine Color Urine Clarity Urine Turbidity Urine pH Ur Specific [place] Urine Protein Urine Glucose (UA) Urine Ketones Urine Occult Blood Urine Nitrate Urine Nitrite Urine Bilirubin Urine Urobilinogen Ur Leukocyte Esterase Urine RBC Urine WBC Urine WBC Clumps Ur Squamous Epith Cells Ur Transition Epith Cell Ur Renal Epithelial Cell Amorphous Sediment Urine Bacteria Hyaline Casts Granular Casts Urine Mucus Micro UA Comment Urine Culture Comments Urine Eosinophils Urine Osmolality Ur Random Creatinine Ur Random Sodium Pleural pH Pleural WBC Pleural Nuc Cells Pleural RBC Pleural Neutrophils Pleural Eosinophils Pleural Lymphocytes Pleural Monocytes Pleural Histocytes Pleural Mesothelial Pleural Total Protein Pleural Amylase Pleural LDH Pleural Glucose Nasal Screen MRSA (PCR) Stl C.difficile Tox PCR St C. diff Tox Epid 027 Vancomycin Trough Random Vancomycin Phenytoin Free Phenytoin LOWELL Screen RPR Blood Type Antibody Screen MTS Gel Crossmatch Blood Bank Comment 12/05/17 12/05/17 12/06/17 19:09 19:09 06:55 WBC RBC Hgb 7.2 L Hct 20.7 L* MCV MCH MCHC RDW Plt Count MPV Prelim Diff (Auto) Neut % (Auto) Lymph % (Auto) [place] % (Auto) Eos % (Auto) Baso % (Auto) Neut # (Auto) Lymph # (Auto) [place] # (Auto) Eos # (Auto) Baso # (Auto) CBC Comment WBC Differential Total Counted Neutrophils % (Manual) Seg Neuts % (Manual) Band Neutrophils % Band Neuts % (Manual) Lymphocytes % Lymphocytes % (Manual) Monocytes % Monocytes % (Manual) Eosinophils % Eosinophils % (Manual) Basophils % Metamyelocytes % (Man) Neutrophils # (Manual) Abs Neuts (Manual) Metamyelocytes Myelocytes Nucleated RBCs Differential Comment Smudge Cells Toxic Granulation Toxic Vacuolation Dohle Bodies Platelet Estimate Platelet Morphology Plt Morphology Comment Basophilic Stippling Spherocytes Tear Drop Cells Ovalocytes Acanthocytes (Spur) RBC Morph Comment ESR Hematology Comments PT INR APTT 25.2 Fibrinogen Puncture Site Patient Temperature HCO3 Base Excess O2 Saturation ABG pH ABG pCO2 ABG pO2 ABG HCO3 ABG O2 Content ABG Base Excess ABG Carboxyhemoglobin ABG Methemoglobin Stepan Test Hemoglobin Carboxyhemoglobin O2 Delivery Device Liter Flow Vent Setting Inspired O2 Critical Value Sodium 146 H Potassium 3.2 L Chloride 111 H Carbon Dioxide 25.1 Anion Gap 10 BUN 23 H Creatinine 1.25 Estimated GFR 56 L POC Glucose Random Glucose 213 H Hemoglobin A1c Lactic Acid Calcium 7.3 L* Prot Corrected Calcium 8.8 Phosphorus 2.9 Magnesium 2.0 Total Bilirubin Direct Bilirubin Indirect Bilirubin AST ALT Alkaline Phosphatase Ammonia Total Creatine Kinase Troponin I C-Reactive Protein B-Natriuretic Peptide Total Protein 4.4 L Albumin Prealbumin Triglycerides Cholesterol LDL Cholesterol HDL Cholesterol Cholesterol/HDL Ratio Thiamine Vitamin B12 Procalcitonin Free T4 TSH 3rd Generation Urine Color Urine Clarity Urine Turbidity Urine pH Ur Specific [place] Urine Protein Urine Glucose (UA) Urine Ketones Urine Occult Blood Urine Nitrate Urine Nitrite Urine Bilirubin Urine Urobilinogen Ur Leukocyte Esterase Urine RBC Urine WBC Urine WBC Clumps Ur Squamous Epith Cells Ur Transition Epith Cell Ur Renal Epithelial Cell Amorphous Sediment Urine Bacteria Hyaline Casts Granular Casts Urine Mucus Micro UA Comment Urine Culture Comments Urine Eosinophils Urine Osmolality Ur Random Creatinine Ur Random Sodium Pleural pH Pleural WBC Pleural Nuc Cells Pleural RBC Pleural Neutrophils Pleural Eosinophils Pleural Lymphocytes Pleural Monocytes Pleural Histocytes Pleural Mesothelial Pleural Total Protein Pleural Amylase Pleural LDH Pleural Glucose Nasal Screen MRSA (PCR) Stl C.difficile Tox PCR St C. diff Tox Epid 027 Vancomycin Trough Random Vancomycin Phenytoin Free Phenytoin LOWELL Screen RPR Blood Type Antibody Screen MTS Gel Crossmatch Blood Bank Comment 12/06/17 12/06/17 12/07/17 06:55 23:13 04:30 WBC 7.7 RBC 3.21 L Hgb 9.5 L D Hct 27.7 L MCV 86.5 MCH 29.7 MCHC 34.3 RDW 19.8 H Plt Count 141 L MPV 8.8 Prelim Diff (Auto) Neut % (Auto) 60.6 Lymph % (Auto) 31.1 [place] % (Auto) 7.8 Eos % (Auto) 0.4 Baso % (Auto) 0.1 Neut # (Auto) 4.7 Lymph # (Auto) 2.4 [place] # (Auto) 0.6 Eos # (Auto) 0.0 Baso # (Auto) 0.0 CBC Comment DIFF FINAL WBC Differential Total Counted Neutrophils % (Manual) Seg Neuts % (Manual) Band Neutrophils % Band Neuts % (Manual) Lymphocytes % Lymphocytes % (Manual) Monocytes % Monocytes % (Manual) Eosinophils % Eosinophils % (Manual) Basophils % Metamyelocytes % (Man) Neutrophils # (Manual) Abs Neuts (Manual) Metamyelocytes Myelocytes Nucleated RBCs Differential Comment Smudge Cells Toxic Granulation Toxic Vacuolation Dohle Bodies Platelet Estimate Platelet Morphology Plt Morphology Comment Basophilic Stippling Spherocytes Tear Drop Cells Ovalocytes Acanthocytes (Spur) RBC Morph Comment ESR Hematology Comments PT INR APTT Fibrinogen Puncture Site Patient Temperature HCO3 Base Excess O2 Saturation ABG pH ABG pCO2 ABG pO2 ABG HCO3 ABG O2 Content ABG Base Excess ABG Carboxyhemoglobin ABG Methemoglobin Stepan Test Hemoglobin Carboxyhemoglobin O2 Delivery Device Liter Flow Vent Setting Inspired O2 Critical Value Sodium 145 Potassium 5.5 H D 3.9 D Chloride 111 H Carbon Dioxide 23.4 Anion Gap 11 BUN 18 Creatinine 1.14 Estimated GFR 62 L POC Glucose Random Glucose 168 H Hemoglobin A1c Lactic Acid Calcium 7.1 L* Prot Corrected Calcium 8.4 L Phosphorus 1.8 L D Magnesium 1.9 Total Bilirubin Direct Bilirubin Indirect Bilirubin AST ALT Alkaline Phosphatase Ammonia Total Creatine Kinase Troponin I C-Reactive Protein B-Natriuretic Peptide Total Protein 4.8 L Albumin Prealbumin Triglycerides Cholesterol LDL Cholesterol HDL Cholesterol Cholesterol/HDL Ratio Thiamine Vitamin B12 Procalcitonin Free T4 TSH 3rd Generation Urine Color Urine Clarity Urine Turbidity Urine pH Ur Specific [place] Urine Protein Urine Glucose (UA) Urine Ketones Urine Occult Blood Urine Nitrate Urine Nitrite Urine Bilirubin Urine Urobilinogen Ur Leukocyte Esterase Urine RBC Urine WBC Urine WBC Clumps Ur Squamous Epith Cells Ur Transition Epith Cell Ur Renal Epithelial Cell Amorphous Sediment Urine Bacteria Hyaline Casts Granular Casts Urine Mucus Micro UA Comment Urine Culture Comments Urine Eosinophils Urine Osmolality Ur Random Creatinine Ur Random Sodium Pleural pH Pleural WBC Pleural Nuc Cells Pleural RBC Pleural Neutrophils Pleural Eosinophils Pleural Lymphocytes Pleural Monocytes Pleural Histocytes Pleural Mesothelial Pleural Total Protein Pleural Amylase Pleural LDH Pleural Glucose Nasal Screen MRSA (PCR) Stl C.difficile Tox PCR St C. diff Tox Epid 027 Vancomycin Trough Random Vancomycin Phenytoin Free Phenytoin LOWELL Screen RPR Blood Type Antibody Screen MTS Gel Crossmatch Blood Bank Comment 12/07/17 12/07/17 12/08/17 04:30 16:50 00:23 WBC 9.4 RBC 3.34 L Hgb 9.8 L Hct 28.4 L MCV 85.1 MCH 29.2 MCHC 34.3 RDW 20.1 H Plt Count 154 MPV 8.8 Prelim Diff (Auto) Neut % (Auto) Lymph % (Auto) [place] % (Auto) Eos % (Auto) Baso % (Auto) Neut # (Auto) Lymph # (Auto) [place] # (Auto) Eos # (Auto) Baso # (Auto) CBC Comment AUTO DIFF WBC Differential Total Counted 100 Neutrophils % (Manual) 34 Seg Neuts % (Manual) Band Neutrophils % 4 Band Neuts % (Manual) Lymphocytes % 58 H Lymphocytes % (Manual) Monocytes % 3 Monocytes % (Manual) Eosinophils % 1 Eosinophils % (Manual) Basophils % Metamyelocytes % (Man) Neutrophils # (Manual) 3.6 Abs Neuts (Manual) Metamyelocytes Myelocytes Nucleated RBCs Differential Comment FINAL DIFF MANUAL Smudge Cells PRESENT Toxic Granulation Toxic Vacuolation Dohle Bodies Platelet Estimate NORMAL Platelet Morphology Plt Morphology Comment ENLARGED H Basophilic Stippling MOD H Spherocytes Tear Drop Cells Ovalocytes Acanthocytes (Spur) RBC Morph Comment ESR Hematology Comments PT INR APTT 26.8 27.7 Fibrinogen Puncture Site Patient Temperature HCO3 Base Excess O2 Saturation ABG pH ABG pCO2 ABG pO2 ABG HCO3 ABG O2 Content ABG Base Excess ABG Carboxyhemoglobin ABG Methemoglobin Stepan Test Hemoglobin Carboxyhemoglobin O2 Delivery Device Liter Flow Vent Setting Inspired O2 Critical Value Sodium Potassium Chloride Carbon Dioxide Anion Gap BUN Creatinine Estimated GFR POC Glucose Random Glucose Hemoglobin A1c Lactic Acid Calcium Prot Corrected Calcium Phosphorus Magnesium Total Bilirubin Direct Bilirubin Indirect Bilirubin AST ALT Alkaline Phosphatase Ammonia Total Creatine Kinase Troponin I C-Reactive Protein B-Natriuretic Peptide Total Protein Albumin Prealbumin Triglycerides Cholesterol LDL Cholesterol HDL Cholesterol Cholesterol/HDL Ratio Thiamine Vitamin B12 Procalcitonin Free T4 TSH 3rd Generation Urine Color Urine Clarity Urine Turbidity Urine pH Ur Specific [place] Urine Protein Urine Glucose (UA) Urine Ketones Urine Occult Blood Urine Nitrate Urine Nitrite Urine Bilirubin Urine Urobilinogen Ur Leukocyte Esterase Urine RBC Urine WBC Urine WBC Clumps Ur Squamous Epith Cells Ur Transition Epith Cell Ur Renal Epithelial Cell Amorphous Sediment Urine Bacteria Hyaline Casts Granular Casts Urine Mucus Micro UA Comment Urine Culture Comments Urine Eosinophils Urine Osmolality Ur Random Creatinine Ur Random Sodium Pleural pH Pleural WBC Pleural Nuc Cells Pleural RBC Pleural Neutrophils Pleural Eosinophils Pleural Lymphocytes Pleural Monocytes Pleural Histocytes Pleural Mesothelial Pleural Total Protein Pleural Amylase Pleural LDH Pleural Glucose Nasal Screen MRSA (PCR) Stl C.difficile Tox PCR St C. diff Tox Epid 027 Vancomycin Trough Random Vancomycin Phenytoin Free Phenytoin LOWELL Screen RPR Blood Type Antibody Screen MTS Gel Crossmatch Blood Bank Comment 12/08/17 12/08/17 12/08/17 04:12 04:12 08:49 WBC 9.4 RBC 3.04 L Hgb 8.9 L Hct 26.4 L MCV 86.7 MCH 29.4 MCHC 33.9 RDW 20.1 H Plt Count 139 L MPV 9.0 Prelim Diff (Auto) Neut % (Auto) Lymph % (Auto) [place] % (Auto) Eos % (Auto) Baso % (Auto) Neut # (Auto) Lymph # (Auto) [place] # (Auto) Eos # (Auto) Baso # (Auto) CBC Comment AUTO DIFF WBC Differential Total Counted 100 Neutrophils % (Manual) 39 Seg Neuts % (Manual) Band Neutrophils % 1 Band Neuts % (Manual) Lymphocytes % 51 H Lymphocytes % (Manual) Monocytes % 8 Monocytes % (Manual) Eosinophils % 1 Eosinophils % (Manual) Basophils % Metamyelocytes % (Man) Neutrophils # (Manual) 3.8 Abs Neuts (Manual) Metamyelocytes Myelocytes Nucleated RBCs Differential Comment FINAL DIFF MANUAL Smudge Cells Toxic Granulation Toxic Vacuolation Dohle Bodies Platelet Estimate LOW L Platelet Morphology Plt Morphology Comment NORMAL Basophilic Stippling Spherocytes Tear Drop Cells Ovalocytes Acanthocytes (Spur) RBC Morph Comment ESR Hematology Comments PT INR APTT 48.8 H D Fibrinogen Puncture Site Patient Temperature HCO3 Base Excess O2 Saturation ABG pH ABG pCO2 ABG pO2 ABG HCO3 ABG O2 Content ABG Base Excess ABG Carboxyhemoglobin ABG Methemoglobin Stepan Test Hemoglobin Carboxyhemoglobin O2 Delivery Device Liter Flow Vent Setting Inspired O2 Critical Value Sodium 146 H Potassium 3.8 Chloride 113 H Carbon Dioxide 22.4 Anion Gap 11 BUN 16 Creatinine 1.13 Estimated GFR 63 L POC Glucose Random Glucose 141 H Hemoglobin A1c Lactic Acid Calcium 6.7 L* Prot Corrected Calcium 8.0 L Phosphorus 2.5 Magnesium 1.8 Total Bilirubin Direct Bilirubin Indirect Bilirubin AST ALT Alkaline Phosphatase Ammonia Total Creatine Kinase Troponin I C-Reactive Protein B-Natriuretic Peptide Total Protein 4.6 L Albumin Prealbumin Triglycerides Cholesterol LDL Cholesterol HDL Cholesterol Cholesterol/HDL Ratio Thiamine Vitamin B12 Procalcitonin Free T4 TSH 3rd Generation Urine Color Urine Clarity Urine Turbidity Urine pH Ur Specific [place] Urine Protein Urine Glucose (UA) Urine Ketones Urine Occult Blood Urine Nitrate Urine Nitrite Urine Bilirubin Urine Urobilinogen Ur Leukocyte Esterase Urine RBC Urine WBC Urine WBC Clumps Ur Squamous Epith Cells Ur Transition Epith Cell Ur Renal Epithelial Cell Amorphous Sediment Urine Bacteria Hyaline Casts Granular Casts Urine Mucus Micro UA Comment Urine Culture Comments Urine Eosinophils Urine Osmolality Ur Random Creatinine Ur Random Sodium Pleural pH Pleural WBC Pleural Nuc Cells Pleural RBC Pleural Neutrophils Pleural Eosinophils Pleural Lymphocytes Pleural Monocytes Pleural Histocytes Pleural Mesothelial Pleural Total Protein Pleural Amylase Pleural LDH Pleural Glucose Nasal Screen MRSA (PCR) Stl C.difficile Tox PCR St C. diff Tox Epid 027 Vancomycin Trough Random Vancomycin Phenytoin Free Phenytoin LOWELL Screen RPR Blood Type Antibody Screen MTS Gel Crossmatch Blood Bank Comment 12/08/17 12/09/17 12/09/17 16:21 02:42 10:34 WBC RBC Hgb Hct MCV MCH MCHC RDW Plt Count MPV Prelim Diff (Auto) Neut % (Auto) Lymph % (Auto) [place] % (Auto) Eos % (Auto) Baso % (Auto) Neut # (Auto) Lymph # (Auto) [place] # (Auto) Eos # (Auto) Baso # (Auto) CBC Comment WBC Differential Total Counted Neutrophils % (Manual) Seg Neuts % (Manual) Band Neutrophils % Band Neuts % (Manual) Lymphocytes % Lymphocytes % (Manual) Monocytes % Monocytes % (Manual) Eosinophils % Eosinophils % (Manual) Basophils % Metamyelocytes % (Man) Neutrophils # (Manual) Abs Neuts (Manual) Metamyelocytes Myelocytes Nucleated RBCs Differential Comment Smudge Cells Toxic Granulation Toxic Vacuolation Dohle Bodies Platelet Estimate Platelet Morphology Plt Morphology Comment Basophilic Stippling Spherocytes Tear Drop Cells Ovalocytes Acanthocytes (Spur) RBC Morph Comment ESR Hematology Comments PT INR APTT 65.5 H D 79.3 H D 79.3 H Fibrinogen Puncture Site Patient Temperature HCO3 Base Excess O2 Saturation ABG pH ABG pCO2 ABG pO2 ABG HCO3 ABG O2 Content ABG Base Excess ABG Carboxyhemoglobin ABG Methemoglobin Stepan Test Hemoglobin Carboxyhemoglobin O2 Delivery Device Liter Flow Vent Setting Inspired O2 Critical Value Sodium Potassium Chloride Carbon Dioxide Anion Gap BUN Creatinine Estimated GFR POC Glucose Random Glucose Hemoglobin A1c Lactic Acid Calcium Prot Corrected Calcium Phosphorus Magnesium Total Bilirubin Direct Bilirubin Indirect Bilirubin AST ALT Alkaline Phosphatase Ammonia Total Creatine Kinase Troponin I C-Reactive Protein B-Natriuretic Peptide Total Protein Albumin Prealbumin Triglycerides Cholesterol LDL Cholesterol HDL Cholesterol Cholesterol/HDL Ratio Thiamine Vitamin B12 Procalcitonin Free T4 TSH 3rd Generation Urine Color Urine Clarity Urine Turbidity Urine pH Ur Specific [place] Urine Protein Urine Glucose (UA) Urine Ketones Urine Occult Blood Urine Nitrate Urine Nitrite Urine Bilirubin Urine Urobilinogen Ur Leukocyte Esterase Urine RBC Urine WBC Urine WBC Clumps Ur Squamous Epith Cells Ur Transition Epith Cell Ur Renal Epithelial Cell Amorphous Sediment Urine Bacteria Hyaline Casts Granular Casts Urine Mucus Micro UA Comment Urine Culture Comments Urine Eosinophils Urine Osmolality Ur Random Creatinine Ur Random Sodium Pleural pH Pleural WBC Pleural Nuc Cells Pleural RBC Pleural Neutrophils Pleural Eosinophils Pleural Lymphocytes Pleural Monocytes Pleural Histocytes Pleural Mesothelial Pleural Total Protein Pleural Amylase Pleural LDH Pleural Glucose Nasal Screen MRSA (PCR) Stl C.difficile Tox PCR St C. diff Tox Epid 027 Vancomycin Trough Random Vancomycin Phenytoin Free Phenytoin LOWELL Screen RPR Blood Type Antibody Screen MTS Gel Crossmatch Blood Bank Comment 12/09/17 12/09/17 12/10/17 16:27 19:42 01:47 WBC RBC Hgb Hct MCV MCH MCHC RDW Plt Count MPV Prelim Diff (Auto) Neut % (Auto) Lymph % (Auto) [place] % (Auto) Eos % (Auto) Baso % (Auto) Neut # (Auto) Lymph # (Auto) [place] # (Auto) Eos # (Auto) Baso # (Auto) CBC Comment WBC Differential Total Counted Neutrophils % (Manual) Seg Neuts % (Manual) Band Neutrophils % Band Neuts % (Manual) Lymphocytes % Lymphocytes % (Manual) Monocytes % Monocytes % (Manual) Eosinophils % Eosinophils % (Manual) Basophils % Metamyelocytes % (Man) Neutrophils # (Manual) Abs Neuts (Manual) Metamyelocytes Myelocytes Nucleated RBCs Differential Comment Smudge Cells Toxic Granulation Toxic Vacuolation Dohle Bodies Platelet Estimate Platelet Morphology Plt Morphology Comment Basophilic Stippling Spherocytes Tear Drop Cells Ovalocytes Acanthocytes (Spur) RBC Morph Comment ESR Hematology Comments PT INR APTT 88.8 H 66.5 H D 54.3 H Fibrinogen Puncture Site Patient Temperature HCO3 Base Excess O2 Saturation ABG pH ABG pCO2 ABG pO2 ABG HCO3 ABG O2 Content ABG Base Excess ABG Carboxyhemoglobin ABG Methemoglobin Stepan Test Hemoglobin Carboxyhemoglobin O2 Delivery Device Liter Flow Vent Setting Inspired O2 Critical Value Sodium Potassium Chloride Carbon Dioxide Anion Gap BUN Creatinine Estimated GFR POC Glucose Random Glucose Hemoglobin A1c Lactic Acid Calcium Prot Corrected Calcium Phosphorus Magnesium Total Bilirubin Direct Bilirubin Indirect Bilirubin AST ALT Alkaline Phosphatase Ammonia Total Creatine Kinase Troponin I C-Reactive Protein B-Natriuretic Peptide Total Protein Albumin Prealbumin Triglycerides Cholesterol LDL Cholesterol HDL Cholesterol Cholesterol/HDL Ratio Thiamine Vitamin B12 Procalcitonin Free T4 TSH 3rd Generation Urine Color Urine Clarity Urine Turbidity Urine pH Ur Specific [place] Urine Protein Urine Glucose (UA) Urine Ketones Urine Occult Blood Urine Nitrate Urine Nitrite Urine Bilirubin Urine Urobilinogen Ur Leukocyte Esterase Urine RBC Urine WBC Urine WBC Clumps Ur Squamous Epith Cells Ur Transition Epith Cell Ur Renal Epithelial Cell Amorphous Sediment Urine Bacteria Hyaline Casts Granular Casts Urine Mucus Micro UA Comment Urine Culture Comments Urine Eosinophils Urine Osmolality Ur Random Creatinine Ur Random Sodium Pleural pH Pleural WBC Pleural Nuc Cells Pleural RBC Pleural Neutrophils Pleural Eosinophils Pleural Lymphocytes Pleural Monocytes Pleural Histocytes Pleural Mesothelial Pleural Total Protein Pleural Amylase Pleural LDH Pleural Glucose Nasal Screen MRSA (PCR) Stl C.difficile Tox PCR St C. diff Tox Epid 027 Vancomycin Trough Random Vancomycin Phenytoin Free Phenytoin LOWELL Screen RPR Blood Type Antibody Screen MTS Gel Crossmatch Blood Bank Comment 12/10/17 12/10/17 12/10/17 10:09 10:09 10:09 WBC 11.8 H RBC 2.73 L Hgb 8.0 L Hct 24.0 L MCV 87.6 MCH 29.2 MCHC 33.3 RDW 20.2 H Plt Count 112 L MPV 9.3 Prelim Diff (Auto) Neut % (Auto) Lymph % (Auto) [place] % (Auto) Eos % (Auto) Baso % (Auto) Neut # (Auto) Lymph # (Auto) [place] # (Auto) Eos # (Auto) Baso # (Auto) CBC Comment AUTO DIFF WBC Differential Total Counted 100 Neutrophils % (Manual) 63 Seg Neuts % (Manual) Band Neutrophils % 3 Band Neuts % (Manual) Lymphocytes % 25 Lymphocytes % (Manual) Monocytes % 9 H Monocytes % (Manual) Eosinophils % Eosinophils % (Manual) Basophils % Metamyelocytes % (Man) Neutrophils # (Manual) 7.8 H Abs Neuts (Manual) Metamyelocytes Myelocytes Nucleated RBCs Differential Comment FINAL DIFF MANUAL Smudge Cells Toxic Granulation Toxic Vacuolation Dohle Bodies Platelet Estimate LOW L Platelet Morphology Plt Morphology Comment NORMAL Basophilic Stippling [place] H Spherocytes Tear Drop Cells Ovalocytes Acanthocytes (Spur) RBC Morph Comment ESR Hematology Comments PT INR APTT 36.4 H D Fibrinogen Puncture Site Patient Temperature HCO3 Base Excess O2 Saturation ABG pH ABG pCO2 ABG pO2 ABG HCO3 ABG O2 Content ABG Base Excess ABG Carboxyhemoglobin ABG Methemoglobin Stepan Test Hemoglobin Carboxyhemoglobin O2 Delivery Device Liter Flow Vent Setting Inspired O2 Critical Value Sodium 145 Potassium 4.4 Chloride 111 H Carbon Dioxide 25.9 Anion Gap 8 BUN 21 H Creatinine 1.06 Estimated GFR 68 L POC Glucose Random Glucose 137 H Hemoglobin A1c Lactic Acid Calcium 6.8 L* Prot Corrected Calcium 8.4 L Phosphorus 2.9 Magnesium 2.0 Total Bilirubin Direct Bilirubin Indirect Bilirubin AST ALT Alkaline Phosphatase Ammonia Total Creatine Kinase Troponin I C-Reactive Protein B-Natriuretic Peptide Total Protein 4.1 L Albumin Prealbumin Triglycerides Cholesterol LDL Cholesterol HDL Cholesterol Cholesterol/HDL Ratio Thiamine Vitamin B12 Procalcitonin Free T4 TSH 3rd Generation Urine Color Urine Clarity Urine Turbidity Urine pH Ur Specific [place] Urine Protein Urine Glucose (UA) Urine Ketones Urine Occult Blood Urine Nitrate Urine Nitrite Urine Bilirubin Urine Urobilinogen Ur Leukocyte Esterase Urine RBC Urine WBC Urine WBC Clumps Ur Squamous Epith Cells Ur Transition Epith Cell Ur Renal Epithelial Cell Amorphous Sediment Urine Bacteria Hyaline Casts Granular Casts Urine Mucus Micro UA Comment Urine Culture Comments Urine Eosinophils Urine Osmolality Ur Random Creatinine Ur Random Sodium Pleural pH Pleural WBC Pleural Nuc Cells Pleural RBC Pleural Neutrophils Pleural Eosinophils Pleural Lymphocytes Pleural Monocytes Pleural Histocytes Pleural Mesothelial Pleural Total Protein Pleural Amylase Pleural LDH Pleural Glucose Nasal Screen MRSA (PCR) Stl C.difficile Tox PCR St C. diff Tox Epid 027 Vancomycin Trough Random Vancomycin Phenytoin Free Phenytoin LOWELL Screen RPR Blood Type Antibody Screen MTS Gel Crossmatch Blood Bank Comment 12/10/17 12/10/17 12/10/17 15:24 18:50 18:50 WBC RBC Hgb 7.5 L Hct 23.3 L MCV MCH MCHC RDW Plt Count MPV Prelim Diff (Auto) Neut % (Auto) Lymph % (Auto) [place] % (Auto) Eos % (Auto) Baso % (Auto) Neut # (Auto) Lymph # (Auto) [place] # (Auto) Eos # (Auto) Baso # (Auto) CBC Comment WBC Differential Total Counted Neutrophils % (Manual) Seg Neuts % (Manual) Band Neutrophils % Band Neuts % (Manual) Lymphocytes % Lymphocytes % (Manual) Monocytes % Monocytes % (Manual) Eosinophils % Eosinophils % (Manual) Basophils % Metamyelocytes % (Man) Neutrophils # (Manual) Abs Neuts (Manual) Metamyelocytes Myelocytes Nucleated RBCs Differential Comment Smudge Cells Toxic Granulation Toxic Vacuolation Dohle Bodies Platelet Estimate Platelet Morphology Plt Morphology Comment Basophilic Stippling Spherocytes Tear Drop Cells Ovalocytes Acanthocytes (Spur) RBC Morph Comment ESR Hematology Comments PT INR APTT 55.9 H D Fibrinogen Puncture Site Patient Temperature HCO3 Base Excess O2 Saturation ABG pH ABG pCO2 ABG pO2 ABG HCO3 ABG O2 Content ABG Base Excess ABG Carboxyhemoglobin ABG Methemoglobin Stepan Test Hemoglobin Carboxyhemoglobin O2 Delivery Device Liter Flow Vent Setting Inspired O2 Critical Value Sodium Potassium Chloride Carbon Dioxide Anion Gap BUN Creatinine Estimated GFR POC Glucose Random Glucose Hemoglobin A1c Lactic Acid 1.4 Calcium Prot Corrected Calcium Phosphorus Magnesium Total Bilirubin Direct Bilirubin Indirect Bilirubin AST ALT Alkaline Phosphatase Ammonia Total Creatine Kinase Troponin I C-Reactive Protein B-Natriuretic Peptide Total Protein Albumin Prealbumin Triglycerides Cholesterol LDL Cholesterol HDL Cholesterol Cholesterol/HDL Ratio Thiamine Vitamin B12 Procalcitonin Free T4 TSH 3rd Generation Urine Color Urine Clarity Urine Turbidity Urine pH Ur Specific [place] Urine Protein Urine Glucose (UA) Urine Ketones Urine Occult Blood Urine Nitrate Urine Nitrite Urine Bilirubin Urine Urobilinogen Ur Leukocyte Esterase Urine RBC Urine WBC Urine WBC Clumps Ur Squamous Epith Cells Ur Transition Epith Cell Ur Renal Epithelial Cell Amorphous Sediment Urine Bacteria Hyaline Casts Granular Casts Urine Mucus Micro UA Comment Urine Culture Comments Urine Eosinophils Urine Osmolality Ur Random Creatinine Ur Random Sodium Pleural pH Pleural WBC Pleural Nuc Cells Pleural RBC Pleural Neutrophils Pleural Eosinophils Pleural Lymphocytes Pleural Monocytes Pleural Histocytes Pleural Mesothelial Pleural Total Protein Pleural Amylase Pleural LDH Pleural Glucose Nasal Screen MRSA (PCR) Stl C.difficile Tox PCR St C. diff Tox Epid 027 Vancomycin Trough Random Vancomycin Phenytoin Free Phenytoin LOWELL Screen RPR Blood Type Antibody Screen MTS Gel Crossmatch Blood Bank Comment 12/10/17 12/11/17 12/11/17 22:55 00:38 04:15 WBC RBC Hgb Hct MCV MCH MCHC RDW Plt Count MPV Prelim Diff (Auto) Neut % (Auto) Lymph % (Auto) [place] % (Auto) Eos % (Auto) Baso % (Auto) Neut # (Auto) Lymph # (Auto) [place] # (Auto) Eos # (Auto) Baso # (Auto) CBC Comment WBC Differential Total Counted Neutrophils % (Manual) Seg Neuts % (Manual) Band Neutrophils % Band Neuts % (Manual) Lymphocytes % Lymphocytes % (Manual) Monocytes % Monocytes % (Manual) Eosinophils % Eosinophils % (Manual) Basophils % Metamyelocytes % (Man) Neutrophils # (Manual) Abs Neuts (Manual) Metamyelocytes Myelocytes Nucleated RBCs Differential Comment Smudge Cells Toxic Granulation Toxic Vacuolation Dohle Bodies Platelet Estimate Platelet Morphology Plt Morphology Comment Basophilic Stippling Spherocytes Tear Drop Cells Ovalocytes Acanthocytes (Spur) RBC Morph Comment ESR Hematology Comments PT INR APTT 58.8 H Fibrinogen Puncture Site Patient Temperature HCO3 Base Excess O2 Saturation ABG pH ABG pCO2 ABG pO2 ABG HCO3 ABG O2 Content ABG Base Excess ABG Carboxyhemoglobin ABG Methemoglobin Stepan Test Hemoglobin Carboxyhemoglobin O2 Delivery Device Liter Flow Vent Setting Inspired O2 Critical Value Sodium 145 Potassium 4.0 Chloride 112 H Carbon Dioxide 23.0 Anion Gap 10 BUN 24 H Creatinine 1.09 Estimated GFR 65 L POC Glucose Random Glucose 138 H Hemoglobin A1c Lactic Acid Calcium 7.0 L* Prot Corrected Calcium 8.2 L Phosphorus 3.0 Magnesium 2.1 Total Bilirubin Direct Bilirubin Indirect Bilirubin AST ALT Alkaline Phosphatase Ammonia Total Creatine Kinase Troponin I C-Reactive Protein B-Natriuretic Peptide Total Protein 4.8 L D Albumin Prealbumin Triglycerides Cholesterol LDL Cholesterol HDL Cholesterol Cholesterol/HDL Ratio Thiamine Vitamin B12 Procalcitonin Free T4 TSH 3rd Generation Urine Color Urine Clarity Urine Turbidity Urine pH Ur Specific [place] Urine Protein Urine Glucose (UA) Urine Ketones Urine Occult Blood Urine Nitrate Urine Nitrite Urine Bilirubin Urine Urobilinogen Ur Leukocyte Esterase Urine RBC Urine WBC Urine WBC Clumps Ur Squamous Epith Cells Ur Transition Epith Cell Ur Renal Epithelial Cell Amorphous Sediment Urine Bacteria Hyaline Casts Granular Casts Urine Mucus Micro UA Comment Urine Culture Comments Urine Eosinophils Urine Osmolality Ur Random Creatinine Ur Random Sodium Pleural pH Pleural WBC Pleural Nuc Cells Pleural RBC Pleural Neutrophils Pleural Eosinophils Pleural Lymphocytes Pleural Monocytes Pleural Histocytes Pleural Mesothelial Pleural Total Protein Pleural Amylase Pleural LDH Pleural Glucose Nasal Screen MRSA (PCR) Stl C.difficile Tox PCR NEGATIVE St C. diff Tox Epid 027 PRESUMPTIVE NEGATIVE Vancomycin Trough Random Vancomycin Phenytoin Free Phenytoin LOWELL Screen RPR Blood Type Antibody Screen MTS Gel Crossmatch Blood Bank Comment 12/11/17 12/11/17 12/12/17 04:15 04:15 03:33 WBC 12.3 H RBC 2.69 L Hgb 7.8 L Hct 23.7 L MCV 88.4 MCH 29.2 MCHC 33.1 RDW 20.6 H Plt Count 150 D MPV 10.3 Prelim Diff (Auto) Neut % (Auto) 57.5 Lymph % (Auto) 31.9 [place] % (Auto) 8.5 H Eos % (Auto) 1.8 Baso % (Auto) 0.3 Neut # (Auto) 7.1 Lymph # (Auto) 3.9 [place] # (Auto) 1.0 H Eos # (Auto) 0.2 Baso # (Auto) 0.0 CBC Comment DIFF FINAL WBC Differential Total Counted Neutrophils % (Manual) Seg Neuts % (Manual) Band Neutrophils % Band Neuts % (Manual) Lymphocytes % Lymphocytes % (Manual) Monocytes % Monocytes % (Manual) Eosinophils % Eosinophils % (Manual) Basophils % Metamyelocytes % (Man) Neutrophils # (Manual) Abs Neuts (Manual) Metamyelocytes Myelocytes Nucleated RBCs Differential Comment Smudge Cells Toxic Granulation Toxic Vacuolation Dohle Bodies Platelet Estimate Platelet Morphology Plt Morphology Comment Basophilic Stippling Spherocytes Tear Drop Cells Ovalocytes Acanthocytes (Spur) RBC Morph Comment ESR Hematology Comments PT INR APTT 44.6 H D 52.9 H Fibrinogen Puncture Site Patient Temperature HCO3 Base Excess O2 Saturation ABG pH ABG pCO2 ABG pO2 ABG HCO3 ABG O2 Content ABG Base Excess ABG Carboxyhemoglobin ABG Methemoglobin Stepan Test Hemoglobin Carboxyhemoglobin O2 Delivery Device Liter Flow Vent Setting Inspired O2 Critical Value Sodium Potassium Chloride Carbon Dioxide Anion Gap BUN Creatinine Estimated GFR POC Glucose Random Glucose Hemoglobin A1c Lactic Acid Calcium Prot Corrected Calcium Phosphorus Magnesium Total Bilirubin Direct Bilirubin Indirect Bilirubin AST ALT Alkaline Phosphatase Ammonia Total Creatine Kinase Troponin I C-Reactive Protein B-Natriuretic Peptide Total Protein Albumin Prealbumin Triglycerides Cholesterol LDL Cholesterol HDL Cholesterol Cholesterol/HDL Ratio Thiamine Vitamin B12 Procalcitonin Free T4 TSH 3rd Generation Urine Color Urine Clarity Urine Turbidity Urine pH Ur Specific [place] Urine Protein Urine Glucose (UA) Urine Ketones Urine Occult Blood Urine Nitrate Urine Nitrite Urine Bilirubin Urine Urobilinogen Ur Leukocyte Esterase Urine RBC Urine WBC Urine WBC Clumps Ur Squamous Epith Cells Ur Transition Epith Cell Ur Renal Epithelial Cell Amorphous Sediment Urine Bacteria Hyaline Casts Granular Casts Urine Mucus Micro UA Comment Urine Culture Comments Urine Eosinophils Urine Osmolality Ur Random Creatinine Ur Random Sodium Pleural pH Pleural WBC Pleural Nuc Cells Pleural RBC Pleural Neutrophils Pleural Eosinophils Pleural Lymphocytes Pleural Monocytes Pleural Histocytes Pleural Mesothelial Pleural Total Protein Pleural Amylase Pleural LDH Pleural Glucose Nasal Screen MRSA (PCR) Stl C.difficile Tox PCR St C. diff Tox Epid 027 Vancomycin Trough Random Vancomycin Phenytoin Free Phenytoin LOWELL Screen RPR Blood Type Antibody Screen MTS Gel Crossmatch Blood Bank Comment 12/14/17 12/14/17 12/14/17 08:16 08:16 08:16 WBC 10.2 RBC 2.62 L Hgb 7.6 L Hct 23.5 L MCV 89.7 MCH 28.9 MCHC 32.3 RDW 20.8 H Plt Count 267 D MPV 9.3 Prelim Diff (Auto) Neut % (Auto) 52.2 Lymph % (Auto) 38.3 [place] % (Auto) 6.8 Eos % (Auto) 2.2 Baso % (Auto) 0.5 Neut # (Auto) 5.3 Lymph # (Auto) 3.9 [place] # (Auto) 0.7 Eos # (Auto) 0.2 Baso # (Auto) 0.0 CBC Comment DIFF FINAL WBC Differential Total Counted Neutrophils % (Manual) Seg Neuts % (Manual) Band Neutrophils % Band Neuts % (Manual) Lymphocytes % Lymphocytes % (Manual) Monocytes % Monocytes % (Manual) Eosinophils % Eosinophils % (Manual) Basophils % Metamyelocytes % (Man) Neutrophils # (Manual) Abs Neuts (Manual) Metamyelocytes Myelocytes Nucleated RBCs Differential Comment Smudge Cells Toxic Granulation Toxic Vacuolation Dohle Bodies Platelet Estimate Platelet Morphology Plt Morphology Comment Basophilic Stippling Spherocytes Tear Drop Cells Ovalocytes Acanthocytes (Spur) RBC Morph Comment ESR Hematology Comments PT INR APTT 51.8 H Fibrinogen Puncture Site Patient Temperature HCO3 Base Excess O2 Saturation ABG pH ABG pCO2 ABG pO2 ABG HCO3 ABG O2 Content ABG Base Excess ABG Carboxyhemoglobin ABG Methemoglobin Stepan Test Hemoglobin Carboxyhemoglobin O2 Delivery Device Liter Flow Vent Setting Inspired O2 Critical Value Sodium 148 H Potassium 3.4 L Chloride 117 H Carbon Dioxide 19.5 L Anion Gap 12 BUN 22 H Creatinine 1.17 Estimated GFR 60 L POC Glucose Random Glucose 154 H Hemoglobin A1c Lactic Acid Calcium 7.5 L Prot Corrected Calcium Phosphorus Magnesium Total Bilirubin Direct Bilirubin Indirect Bilirubin AST ALT Alkaline Phosphatase Ammonia Total Creatine Kinase Troponin I C-Reactive Protein B-Natriuretic Peptide Total Protein Albumin Prealbumin Triglycerides Cholesterol LDL Cholesterol HDL Cholesterol Cholesterol/HDL Ratio Thiamine Vitamin B12 Procalcitonin Free T4 TSH 3rd Generation Urine Color Urine Clarity Urine Turbidity Urine pH Ur Specific [place] Urine Protein Urine Glucose (UA) Urine Ketones Urine Occult Blood Urine Nitrate Urine Nitrite Urine Bilirubin Urine Urobilinogen Ur Leukocyte Esterase Urine RBC Urine WBC Urine WBC Clumps Ur Squamous Epith Cells Ur Transition Epith Cell Ur Renal Epithelial Cell Amorphous Sediment Urine Bacteria Hyaline Casts Granular Casts Urine Mucus Micro UA Comment Urine Culture Comments Urine Eosinophils Urine Osmolality Ur Random Creatinine Ur Random Sodium Pleural pH Pleural WBC Pleural Nuc Cells Pleural RBC Pleural Neutrophils Pleural Eosinophils Pleural Lymphocytes Pleural Monocytes Pleural Histocytes Pleural Mesothelial Pleural Total Protein Pleural Amylase Pleural LDH Pleural Glucose Nasal Screen MRSA (PCR) Stl C.difficile Tox PCR St C. diff Tox Epid 027 Vancomycin Trough Random Vancomycin Phenytoin Free Phenytoin LOWELL Screen RPR Blood Type Antibody Screen MTS Gel Crossmatch Blood Bank Comment 12/15/17 12/15/17 12/15/17 03:25 03:25 03:25 WBC 6.9 RBC 2.62 L Hgb 7.5 L Hct 23.2 L MCV 88.8 MCH 28.8 MCHC 32.4 RDW 20.3 H Plt Count 296 MPV 9.0 Prelim Diff (Auto) Neut % (Auto) 53.9 Lymph % (Auto) 34.0 [place] % (Auto) 7.3 Eos % (Auto) 4.3 H Baso % (Auto) 0.5 Neut # (Auto) 3.7 Lymph # (Auto) 2.3 [place] # (Auto) 0.5 Eos # (Auto) 0.3 Baso # (Auto) 0.0 CBC Comment DIFF FINAL WBC Differential Total Counted Neutrophils % (Manual) Seg Neuts % (Manual) Band Neutrophils % Band Neuts % (Manual) Lymphocytes % Lymphocytes % (Manual) Monocytes % Monocytes % (Manual) Eosinophils % Eosinophils % (Manual) Basophils % Metamyelocytes % (Man) Neutrophils # (Manual) Abs Neuts (Manual) Metamyelocytes Myelocytes Nucleated RBCs Differential Comment Smudge Cells Toxic Granulation Toxic Vacuolation Dohle Bodies Platelet Estimate Platelet Morphology Plt Morphology Comment Basophilic Stippling Spherocytes Tear Drop Cells Ovalocytes Acanthocytes (Spur) RBC Morph Comment ESR Hematology Comments PT INR APTT 56.0 H Fibrinogen Puncture Site Patient Temperature HCO3 Base Excess O2 Saturation ABG pH ABG pCO2 ABG pO2 ABG HCO3 ABG O2 Content ABG Base Excess ABG Carboxyhemoglobin ABG Methemoglobin Stepan Test Hemoglobin Carboxyhemoglobin O2 Delivery Device Liter Flow Vent Setting Inspired O2 Critical Value Sodium 150 H Potassium 3.6 Chloride 118 H Carbon Dioxide 21.2 Anion Gap 11 BUN 19 H Creatinine 1.15 Estimated GFR 62 L POC Glucose Random Glucose 152 H Hemoglobin A1c Lactic Acid Calcium 7.3 L* Prot Corrected Calcium 8.3 L Phosphorus Magnesium Total Bilirubin Direct Bilirubin Indirect Bilirubin AST ALT Alkaline Phosphatase Ammonia Total Creatine Kinase Troponin I C-Reactive Protein B-Natriuretic Peptide Total Protein 5.2 L Albumin Prealbumin Triglycerides Cholesterol LDL Cholesterol HDL Cholesterol Cholesterol/HDL Ratio Thiamine Vitamin B12 Procalcitonin Free T4 TSH 3rd Generation Urine Color Urine Clarity Urine Turbidity Urine pH Ur Specific [place] Urine Protein Urine Glucose (UA) Urine Ketones Urine Occult Blood Urine Nitrate Urine Nitrite Urine Bilirubin Urine Urobilinogen Ur Leukocyte Esterase Urine RBC Urine WBC Urine WBC Clumps Ur Squamous Epith Cells Ur Transition Epith Cell Ur Renal Epithelial Cell Amorphous Sediment Urine Bacteria Hyaline Casts Granular Casts Urine Mucus Micro UA Comment Urine Culture Comments Urine Eosinophils Urine Osmolality Ur Random Creatinine Ur Random Sodium Pleural pH Pleural WBC Pleural Nuc Cells Pleural RBC Pleural Neutrophils Pleural Eosinophils Pleural Lymphocytes Pleural Monocytes Pleural Histocytes Pleural Mesothelial Pleural Total Protein Pleural Amylase Pleural LDH Pleural Glucose Nasal Screen MRSA (PCR) Stl C.difficile Tox PCR St C. diff Tox Epid 027 Vancomycin Trough Random Vancomycin Phenytoin Free Phenytoin LOWELL Screen RPR Blood Type Antibody Screen MTS Gel Crossmatch Blood Bank Comment 12/15/17 12/16/17 12/16/17 12:02 03:51 03:51 WBC RBC Hgb Hct MCV MCH MCHC RDW Plt Count MPV Prelim Diff (Auto) Neut % (Auto) Lymph % (Auto) [place] % (Auto) Eos % (Auto) Baso % (Auto) Neut # (Auto) Lymph # (Auto) [place] # (Auto) Eos # (Auto) Baso # (Auto) CBC Comment WBC Differential Total Counted Neutrophils % (Manual) Seg Neuts % (Manual) Band Neutrophils % Band Neuts % (Manual) Lymphocytes % Lymphocytes % (Manual) Monocytes % Monocytes % (Manual) Eosinophils % Eosinophils % (Manual) Basophils % Metamyelocytes % (Man) Neutrophils # (Manual) Abs Neuts (Manual) Metamyelocytes Myelocytes Nucleated RBCs Differential Comment Smudge Cells Toxic Granulation Toxic Vacuolation Dohle Bodies Platelet Estimate Platelet Morphology Plt Morphology Comment Basophilic Stippling Spherocytes Tear Drop Cells Ovalocytes Acanthocytes (Spur) RBC Morph Comment ESR Hematology Comments PT 13.4 H 14.8 H INR 1.3 1.5 APTT 54.0 H Fibrinogen Puncture Site Patient Temperature HCO3 Base Excess O2 Saturation ABG pH ABG pCO2 ABG pO2 ABG HCO3 ABG O2 Content ABG Base Excess ABG Carboxyhemoglobin ABG Methemoglobin Stepan Test Hemoglobin Carboxyhemoglobin O2 Delivery Device Liter Flow Vent Setting Inspired O2 Critical Value Sodium 151 H Potassium 3.2 L Chloride 117 H Carbon Dioxide 23.5 Anion Gap 11 BUN 17 Creatinine 1.18 Estimated GFR 60 L POC Glucose Random Glucose 140 H Hemoglobin A1c Lactic Acid Calcium 7.2 L* Prot Corrected Calcium 8.3 L Phosphorus Magnesium Total Bilirubin Direct Bilirubin Indirect Bilirubin AST ALT Alkaline Phosphatase Ammonia Total Creatine Kinase Troponin I C-Reactive Protein B-Natriuretic Peptide Total Protein 5.1 L Albumin Prealbumin Triglycerides Cholesterol LDL Cholesterol HDL Cholesterol Cholesterol/HDL Ratio Thiamine Vitamin B12 Procalcitonin Free T4 TSH 3rd Generation Urine Color Urine Clarity Urine Turbidity Urine pH Ur Specific [place] Urine Protein Urine Glucose (UA) Urine Ketones Urine Occult Blood Urine Nitrate Urine Nitrite Urine Bilirubin Urine Urobilinogen Ur Leukocyte Esterase Urine RBC Urine WBC Urine WBC Clumps Ur Squamous Epith Cells Ur Transition Epith Cell Ur Renal Epithelial Cell Amorphous Sediment Urine Bacteria Hyaline Casts Granular Casts Urine Mucus Micro UA Comment Urine Culture Comments Urine Eosinophils Urine Osmolality Ur Random Creatinine Ur Random Sodium Pleural pH Pleural WBC Pleural Nuc Cells Pleural RBC Pleural Neutrophils Pleural Eosinophils Pleural Lymphocytes Pleural Monocytes Pleural Histocytes Pleural Mesothelial Pleural Total Protein Pleural Amylase Pleural LDH Pleural Glucose Nasal Screen MRSA (PCR) Stl C.difficile Tox PCR St C. diff Tox Epid 027 Vancomycin Trough Random Vancomycin Phenytoin Free Phenytoin LOWELL Screen RPR Blood Type Antibody Screen MTS Gel Crossmatch Blood Bank Comment 12/16/17 12/17/17 12/17/17 03:51 07:34 07:34 WBC 8.8 9.1 RBC 2.60 L 2.57 L Hgb 7.9 L 7.4 L Hct 22.8 L 22.7 L MCV 87.8 88.4 MCH 30.2 28.8 MCHC 34.4 32.6 RDW 20.7 H 20.7 H Plt Count 331 344 MPV 8.5 8.7 Prelim Diff (Auto) Neut % (Auto) 58.2 47.4 Lymph % (Auto) 31.1 42.1 [place] % (Auto) 8.4 H 8.2 H Eos % (Auto) 2.0 1.9 Baso % (Auto) 0.3 0.4 Neut # (Auto) 5.1 4.3 Lymph # (Auto) 2.7 3.8 [place] # (Auto) 0.7 0.7 Eos # (Auto) 0.2 0.2 Baso # (Auto) 0.0 0.0 CBC Comment DIFF FINAL DIFF FINAL WBC Differential Total Counted Neutrophils % (Manual) Seg Neuts % (Manual) Band Neutrophils % Band Neuts % (Manual) Lymphocytes % Lymphocytes % (Manual) Monocytes % Monocytes % (Manual) Eosinophils % Eosinophils % (Manual) Basophils % Metamyelocytes % (Man) Neutrophils # (Manual) Abs Neuts (Manual) Metamyelocytes Myelocytes Nucleated RBCs Differential Comment Smudge Cells Toxic Granulation Toxic Vacuolation Dohle Bodies Platelet Estimate Platelet Morphology Plt Morphology Comment Basophilic Stippling Spherocytes Tear Drop Cells Ovalocytes Acanthocytes (Spur) RBC Morph Comment ESR Hematology Comments PT INR APTT Fibrinogen Puncture Site Patient Temperature HCO3 Base Excess O2 Saturation ABG pH ABG pCO2 ABG pO2 ABG HCO3 ABG O2 Content ABG Base Excess ABG Carboxyhemoglobin ABG Methemoglobin Stepan Test Hemoglobin Carboxyhemoglobin O2 Delivery Device Liter Flow Vent Setting Inspired O2 Critical Value Sodium 150 H Potassium 4.3 D Chloride 118 H Carbon Dioxide 23.2 Anion Gap 9 BUN 18 Creatinine 1.28 Estimated GFR 54 L POC Glucose Random Glucose 146 H Hemoglobin A1c Lactic Acid Calcium 7.2 L* Prot Corrected Calcium 8.3 L Phosphorus 3.9 Magnesium 2.1 Total Bilirubin 0.2 Direct Bilirubin Indirect Bilirubin AST 15 ALT 11 L Alkaline Phosphatase 83 Ammonia Total Creatine Kinase Troponin I C-Reactive Protein B-Natriuretic Peptide Total Protein 5.1 L Albumin 0.9 L Prealbumin Triglycerides Cholesterol LDL Cholesterol HDL Cholesterol Cholesterol/HDL Ratio Thiamine Vitamin B12 Procalcitonin Free T4 TSH 3rd Generation Urine Color Urine Clarity Urine Turbidity Urine pH Ur Specific [place] Urine Protein Urine Glucose (UA) Urine Ketones Urine Occult Blood Urine Nitrate Urine Nitrite Urine Bilirubin Urine Urobilinogen Ur Leukocyte Esterase Urine RBC Urine WBC Urine WBC Clumps Ur Squamous Epith Cells Ur Transition Epith Cell Ur Renal Epithelial Cell Amorphous Sediment Urine Bacteria Hyaline Casts Granular Casts Urine Mucus Micro UA Comment Urine Culture Comments Urine Eosinophils Urine Osmolality Ur Random Creatinine Ur Random Sodium Pleural pH Pleural WBC Pleural Nuc Cells Pleural RBC Pleural Neutrophils Pleural Eosinophils Pleural Lymphocytes Pleural Monocytes Pleural Histocytes Pleural Mesothelial Pleural Total Protein Pleural Amylase Pleural LDH Pleural Glucose Nasal Screen MRSA (PCR) Stl C.difficile Tox PCR St C. diff Tox Epid 027 Vancomycin Trough Random Vancomycin Phenytoin Free Phenytoin LOWELL Screen RPR Blood Type Antibody Screen MTS Gel Crossmatch Blood Bank Comment 12/17/17 12/17/17 12/18/17 07:34 11:19 07:04 WBC RBC Hgb Hct MCV MCH MCHC RDW Plt Count MPV Prelim Diff (Auto) Neut % (Auto) Lymph % (Auto) [place] % (Auto) Eos % (Auto) Baso % (Auto) Neut # (Auto) Lymph # (Auto) [place] # (Auto) Eos # (Auto) Baso # (Auto) CBC Comment WBC Differential Total Counted Neutrophils % (Manual) Seg Neuts % (Manual) Band Neutrophils % Band Neuts % (Manual) Lymphocytes % Lymphocytes % (Manual) Monocytes % Monocytes % (Manual) Eosinophils % Eosinophils % (Manual) Basophils % Metamyelocytes % (Man) Neutrophils # (Manual) Abs Neuts (Manual) Metamyelocytes Myelocytes Nucleated RBCs Differential Comment Smudge Cells Toxic Granulation Toxic Vacuolation Dohle Bodies Platelet Estimate Platelet Morphology Plt Morphology Comment Basophilic Stippling Spherocytes Tear Drop Cells Ovalocytes Acanthocytes (Spur) RBC Morph Comment ESR Hematology Comments PT 16.6 H 21.5 H INR 1.6 2.1 APTT 46.2 H 55.4 H 51.4 H Fibrinogen Puncture Site Patient Temperature HCO3 Base Excess O2 Saturation ABG pH ABG pCO2 ABG pO2 ABG HCO3 ABG O2 Content ABG Base Excess ABG Carboxyhemoglobin ABG Methemoglobin Stepan Test Hemoglobin Carboxyhemoglobin O2 Delivery Device Liter Flow Vent Setting Inspired O2 Critical Value Sodium Potassium Chloride Carbon Dioxide Anion Gap BUN Creatinine Estimated GFR POC Glucose Random Glucose Hemoglobin A1c Lactic Acid Calcium Prot Corrected Calcium Phosphorus Magnesium Total Bilirubin Direct Bilirubin Indirect Bilirubin AST ALT Alkaline Phosphatase Ammonia Total Creatine Kinase Troponin I C-Reactive Protein B-Natriuretic Peptide Total Protein Albumin Prealbumin Triglycerides Cholesterol LDL Cholesterol HDL Cholesterol Cholesterol/HDL Ratio Thiamine Vitamin B12 Procalcitonin Free T4 TSH 3rd Generation Urine Color Urine Clarity Urine Turbidity Urine pH Ur Specific [place] Urine Protein Urine Glucose (UA) Urine Ketones Urine Occult Blood Urine Nitrate Urine Nitrite Urine Bilirubin Urine Urobilinogen Ur Leukocyte Esterase Urine RBC Urine WBC Urine WBC Clumps Ur Squamous Epith Cells Ur Transition Epith Cell Ur Renal Epithelial Cell Amorphous Sediment Urine Bacteria Hyaline Casts Granular Casts Urine Mucus Micro UA Comment Urine Culture Comments Urine Eosinophils Urine Osmolality Ur Random Creatinine Ur Random Sodium Pleural pH Pleural WBC Pleural Nuc Cells Pleural RBC Pleural Neutrophils Pleural Eosinophils Pleural Lymphocytes Pleural Monocytes Pleural Histocytes Pleural Mesothelial Pleural Total Protein Pleural Amylase Pleural LDH Pleural Glucose Nasal Screen MRSA (PCR) Stl C.difficile Tox PCR St C. diff Tox Epid 027 Vancomycin Trough Random Vancomycin Phenytoin Free Phenytoin LOWELL Screen RPR Blood Type Antibody Screen MTS Gel Crossmatch Blood Bank Comment 12/18/17 12/18/17 12/18/17 07:04 07:04 18:00 WBC 11.3 H RBC 2.39 L Hgb 7.0 L Hct 21.7 L MCV 90.8 MCH 29.3 MCHC 32.3 RDW 21.6 H Plt Count 336 MPV 9.0 Prelim Diff (Auto) Neut % (Auto) 42.5 Lymph % (Auto) 48.0 H [place] % (Auto) 7.0 Eos % (Auto) 1.9 Baso % (Auto) 0.6 Neut # (Auto) 4.8 Lymph # (Auto) 5.4 H [place] # (Auto) 0.8 Eos # (Auto) 0.2 Baso # (Auto) 0.1 CBC Comment AUTO DIFF WBC Differential Total Counted 100 Neutrophils % (Manual) 42 Seg Neuts % (Manual) Band Neutrophils % 1 Band Neuts % (Manual) Lymphocytes % 49 H Lymphocytes % (Manual) Monocytes % 6 Monocytes % (Manual) Eosinophils % 1 Eosinophils % (Manual) Basophils % Metamyelocytes % (Man) Neutrophils # (Manual) 5.0 Abs Neuts (Manual) Metamyelocytes Myelocytes 1 H Nucleated RBCs Differential Comment FINAL DIFF MANUAL Smudge Cells Toxic Granulation Toxic Vacuolation Dohle Bodies Platelet Estimate NORMAL Platelet Morphology Plt Morphology Comment NORMAL Basophilic Stippling Spherocytes Tear Drop Cells Ovalocytes Acanthocytes (Spur) RBC Morph Comment ESR Hematology Comments PT INR APTT Fibrinogen Puncture Site Patient Temperature HCO3 Base Excess O2 Saturation ABG pH ABG pCO2 ABG pO2 ABG HCO3 ABG O2 Content ABG Base Excess ABG Carboxyhemoglobin ABG Methemoglobin Stepan Test Hemoglobin Carboxyhemoglobin O2 Delivery Device Liter Flow Vent Setting Inspired O2 Critical Value Sodium 145 Potassium 4.6 Chloride 114 H Carbon Dioxide 23.1 Anion Gap 8 BUN 18 Creatinine 1.26 Estimated GFR 55 L POC Glucose Random Glucose 153 H Hemoglobin A1c Lactic Acid Calcium 7.0 L* Prot Corrected Calcium 8.0 L Phosphorus 4.2 Magnesium 2.0 Total Bilirubin 0.2 Direct Bilirubin Indirect Bilirubin AST 25 ALT 13 Alkaline Phosphatase 88 Ammonia Total Creatine Kinase Troponin I C-Reactive Protein B-Natriuretic Peptide Total Protein 5.2 L Albumin 0.9 L Prealbumin Triglycerides Cholesterol LDL Cholesterol HDL Cholesterol Cholesterol/HDL Ratio Thiamine Vitamin B12 Procalcitonin Free T4 TSH 3rd Generation Urine Color Urine Clarity Urine Turbidity Urine pH Ur Specific [place] Urine Protein Urine Glucose (UA) Urine Ketones Urine Occult Blood Urine Nitrate Urine Nitrite Urine Bilirubin Urine Urobilinogen Ur Leukocyte Esterase Urine RBC Urine WBC Urine WBC Clumps Ur Squamous Epith Cells Ur Transition Epith Cell Ur Renal Epithelial Cell Amorphous Sediment Urine Bacteria Hyaline Casts Granular Casts Urine Mucus Micro UA Comment Urine Culture Comments Urine Eosinophils Urine Osmolality Ur Random Creatinine Ur Random Sodium Pleural pH Pleural WBC Pleural Nuc Cells Pleural RBC Pleural Neutrophils Pleural Eosinophils Pleural Lymphocytes Pleural Monocytes Pleural Histocytes Pleural Mesothelial Pleural Total Protein Pleural Amylase Pleural LDH Pleural Glucose Nasal Screen MRSA (PCR) Stl C.difficile Tox PCR NEGATIVE St C. diff Tox Epid 027 PRESUMPTIVE NEGATIVE Vancomycin Trough Random Vancomycin Phenytoin Free Phenytoin LOWELL Screen RPR Blood Type Antibody Screen MTS Gel Crossmatch Blood Bank Comment 12/19/17 12/19/17 12/19/17 09:00 09:00 09:00 WBC 10.5 RBC 2.33 L Hgb 6.8 L* Hct 20.7 L* MCV 88.7 MCH 29.2 MCHC 32.9 RDW 21.1 H Plt Count 380 MPV 8.7 Prelim Diff (Auto) Neut % (Auto) Lymph % (Auto) [place] % (Auto) Eos % (Auto) Baso % (Auto) Neut # (Auto) Lymph # (Auto) [place] # (Auto) Eos # (Auto) Baso # (Auto) CBC Comment AUTO DIFF WBC Differential Total Counted 100 Neutrophils % (Manual) 58 Seg Neuts % (Manual) Band Neutrophils % 8 H Band Neuts % (Manual) Lymphocytes % 21 Lymphocytes % (Manual) Monocytes % 9 H Monocytes % (Manual) Eosinophils % 2 Eosinophils % (Manual) Basophils % 1 Metamyelocytes % (Man) Neutrophils # (Manual) 7.0 Abs Neuts (Manual) Metamyelocytes 1 Myelocytes Nucleated RBCs Differential Comment FINAL DIFF MANUAL Smudge Cells Toxic Granulation 2+ H Toxic Vacuolation Dohle Bodies Platelet Estimate NORMAL Platelet Morphology Plt Morphology Comment CLUMPED H Basophilic Stippling Spherocytes Tear Drop Cells Ovalocytes 1+ H Acanthocytes (Spur) RBC Morph Comment ESR Hematology Comments PT 21.0 H INR 2.1 APTT 49.9 H Fibrinogen Puncture Site Patient Temperature HCO3 Base Excess O2 Saturation ABG pH ABG pCO2 ABG pO2 ABG HCO3 ABG O2 Content ABG Base Excess ABG Carboxyhemoglobin ABG Methemoglobin Stepan Test Hemoglobin Carboxyhemoglobin O2 Delivery Device Liter Flow Vent Setting Inspired O2 Critical Value Sodium 139 Potassium 4.4 Chloride 107 Carbon Dioxide 23.4 Anion Gap 9 BUN 22 H Creatinine 1.30 Estimated GFR 53 L POC Glucose Random Glucose 213 H Hemoglobin A1c Lactic Acid Calcium 7.0 L* Prot Corrected Calcium 7.7 L Phosphorus Magnesium Total Bilirubin Direct Bilirubin Indirect Bilirubin AST ALT Alkaline Phosphatase Ammonia Total Creatine Kinase Troponin I C-Reactive Protein B-Natriuretic Peptide Total Protein 5.7 L Albumin Prealbumin Triglycerides Cholesterol LDL Cholesterol HDL Cholesterol Cholesterol/HDL Ratio Thiamine Vitamin B12 Procalcitonin Free T4 TSH 3rd Generation Urine Color Urine Clarity Urine Turbidity Urine pH Ur Specific [place] Urine Protein Urine Glucose (UA) Urine Ketones Urine Occult Blood Urine Nitrate Urine Nitrite Urine Bilirubin Urine Urobilinogen Ur Leukocyte Esterase Urine RBC Urine WBC Urine WBC Clumps Ur Squamous Epith Cells Ur Transition Epith Cell Ur Renal Epithelial Cell Amorphous Sediment Urine Bacteria Hyaline Casts Granular Casts Urine Mucus Micro UA Comment Urine Culture Comments Urine Eosinophils Urine Osmolality Ur Random Creatinine Ur Random Sodium Pleural pH Pleural WBC Pleural Nuc Cells Pleural RBC Pleural Neutrophils Pleural Eosinophils Pleural Lymphocytes Pleural Monocytes Pleural Histocytes Pleural Mesothelial Pleural Total Protein Pleural Amylase Pleural LDH Pleural Glucose Nasal Screen MRSA (PCR) Stl C.difficile Tox PCR St C. diff Tox Epid 027 Vancomycin Trough Random Vancomycin Phenytoin Free Phenytoin LOWELL Screen RPR Blood Type Antibody Screen MTS Gel Crossmatch Blood Bank Comment 12/20/17 12/20/17 12/21/17 11:15 11:15 08:00 WBC 11.9 H RBC 2.89 L Hgb 8.3 L Hct 25.6 L MCV 88.7 MCH 28.6 MCHC 32.2 RDW 20.2 H Plt Count 350 MPV 8.5 Prelim Diff (Auto) Neut % (Auto) 54.1 Lymph % (Auto) 36.4 [place] % (Auto) 7.1 Eos % (Auto) 1.8 Baso % (Auto) 0.6 Neut # (Auto) 6.4 Lymph # (Auto) 4.3 [place] # (Auto) 0.8 Eos # (Auto) 0.2 Baso # (Auto) 0.1 CBC Comment AUTO DIFF WBC Differential Total Counted 100 Neutrophils % (Manual) 69 Seg Neuts % (Manual) Band Neutrophils % Band Neuts % (Manual) Lymphocytes % 21 Lymphocytes % (Manual) Monocytes % 3 Monocytes % (Manual) Eosinophils % 3 Eosinophils % (Manual) Basophils % Metamyelocytes % (Man) Neutrophils # (Manual) 8.7 H Abs Neuts (Manual) Metamyelocytes 2 H Myelocytes 2 H Nucleated RBCs Differential Comment FINAL DIFF MANUAL Smudge Cells Toxic Granulation Toxic Vacuolation Dohle Bodies Platelet Estimate NORMAL Platelet Morphology Plt Morphology Comment NORMAL Basophilic Stippling Spherocytes Tear Drop Cells Ovalocytes Acanthocytes (Spur) RBC Morph Comment ESR Hematology Comments PT 15.4 H D 14.0 H INR 1.5 1.4 APTT 47.5 H Fibrinogen Puncture Site Patient Temperature HCO3 Base Excess O2 Saturation ABG pH ABG pCO2 ABG pO2 ABG HCO3 ABG O2 Content ABG Base Excess ABG Carboxyhemoglobin ABG Methemoglobin Stepan Test Hemoglobin Carboxyhemoglobin O2 Delivery Device Liter Flow Vent Setting Inspired O2 Critical Value Sodium Potassium Chloride Carbon Dioxide Anion Gap BUN Creatinine Estimated GFR POC Glucose Random Glucose Hemoglobin A1c Lactic Acid Calcium Prot Corrected Calcium Phosphorus Magnesium Total Bilirubin Direct Bilirubin Indirect Bilirubin AST ALT Alkaline Phosphatase Ammonia Total Creatine Kinase Troponin I C-Reactive Protein B-Natriuretic Peptide Total Protein Albumin Prealbumin Triglycerides Cholesterol LDL Cholesterol HDL Cholesterol Cholesterol/HDL Ratio Thiamine Vitamin B12 Procalcitonin Free T4 TSH 3rd Generation Urine Color Urine Clarity Urine Turbidity Urine pH Ur Specific [place] Urine Protein Urine Glucose (UA) Urine Ketones Urine Occult Blood Urine Nitrate Urine Nitrite Urine Bilirubin Urine Urobilinogen Ur Leukocyte Esterase Urine RBC Urine WBC Urine WBC Clumps Ur Squamous Epith Cells Ur Transition Epith Cell Ur Renal Epithelial Cell Amorphous Sediment Urine Bacteria Hyaline Casts Granular Casts Urine Mucus Micro UA Comment Urine Culture Comments Urine Eosinophils Urine Osmolality Ur Random Creatinine Ur Random Sodium Pleural pH Pleural WBC Pleural Nuc Cells Pleural RBC Pleural Neutrophils Pleural Eosinophils Pleural Lymphocytes Pleural Monocytes Pleural Histocytes Pleural Mesothelial Pleural Total Protein Pleural Amylase Pleural LDH Pleural Glucose Nasal Screen MRSA (PCR) Stl C.difficile Tox PCR St C. diff Tox Epid 027 Vancomycin Trough Random Vancomycin Phenytoin Free Phenytoin LOWELL Screen RPR Blood Type Antibody Screen MTS Gel Crossmatch Blood Bank Comment 12/21/17 12/21/17 12/21/17 08:00 08:00 08:00 WBC 11.3 H RBC 3.21 L Hgb 9.5 L Hct 29.1 L MCV 90.5 MCH 29.5 MCHC 32.6 RDW 20.4 H Plt Count 309 MPV 9.2 Prelim Diff (Auto) Neut % (Auto) 53.2 Lymph % (Auto) 35.9 [place] % (Auto) 9.1 H Eos % (Auto) 1.2 Baso % (Auto) 0.6 Neut # (Auto) 6.0 Lymph # (Auto) 4.1 [place] # (Auto) 1.0 H Eos # (Auto) 0.1 Baso # (Auto) 0.1 CBC Comment AUTO DIFF WBC Differential Total Counted 100 Neutrophils % (Manual) 64 Seg Neuts % (Manual) Band Neutrophils % 4 Band Neuts % (Manual) Lymphocytes % 25 Lymphocytes % (Manual) Monocytes % 7 Monocytes % (Manual) Eosinophils % Eosinophils % (Manual) Basophils % Metamyelocytes % (Man) Neutrophils # (Manual) 7.7 Abs Neuts (Manual) Metamyelocytes Myelocytes Nucleated RBCs 2 H Differential Comment FINAL DIFF MANUAL Smudge Cells Toxic Granulation Toxic Vacuolation Dohle Bodies Platelet Estimate NORMAL Platelet Morphology Plt Morphology Comment NORMAL Basophilic Stippling Spherocytes Tear Drop Cells Ovalocytes Acanthocytes (Spur) RBC Morph Comment ESR Hematology Comments PT INR APTT 31.3 H D Fibrinogen Puncture Site Patient Temperature HCO3 Base Excess O2 Saturation ABG pH ABG pCO2 ABG pO2 ABG HCO3 ABG O2 Content ABG Base Excess ABG Carboxyhemoglobin ABG Methemoglobin Stepan Test Hemoglobin Carboxyhemoglobin O2 Delivery Device Liter Flow Vent Setting Inspired O2 Critical Value Sodium 134 L Potassium 5.1 Chloride 101 Carbon Dioxide 22.2 Anion Gap 11 BUN 26 H Creatinine 1.20 Estimated GFR 59 L POC Glucose Random Glucose 204 H Hemoglobin A1c Lactic Acid Calcium 7.0 L* Prot Corrected Calcium 7.9 L Phosphorus Magnesium Total Bilirubin Direct Bilirubin Indirect Bilirubin AST ALT Alkaline Phosphatase Ammonia Total Creatine Kinase Troponin I C-Reactive Protein B-Natriuretic Peptide Total Protein 5.4 L Albumin Prealbumin Triglycerides Cholesterol LDL Cholesterol HDL Cholesterol Cholesterol/HDL Ratio Thiamine Vitamin B12 Procalcitonin Free T4 TSH 3rd Generation Urine Color Urine Clarity Urine Turbidity Urine pH Ur Specific [place] Urine Protein Urine Glucose (UA) Urine Ketones Urine Occult Blood Urine Nitrate Urine Nitrite Urine Bilirubin Urine Urobilinogen Ur Leukocyte Esterase Urine RBC Urine WBC Urine WBC Clumps Ur Squamous Epith Cells Ur Transition Epith Cell Ur Renal Epithelial Cell Amorphous Sediment Urine Bacteria Hyaline Casts Granular Casts Urine Mucus Micro UA Comment Urine Culture Comments Urine Eosinophils Urine Osmolality Ur Random Creatinine Ur Random Sodium Pleural pH Pleural WBC Pleural Nuc Cells Pleural RBC Pleural Neutrophils Pleural Eosinophils Pleural Lymphocytes Pleural Monocytes Pleural Histocytes Pleural Mesothelial Pleural Total Protein Pleural Amylase Pleural LDH Pleural Glucose Nasal Screen MRSA (PCR) Stl C.difficile Tox PCR St C. diff Tox Epid 027 Vancomycin Trough Random Vancomycin Phenytoin Free Phenytoin LOWELL Screen RPR Blood Type Antibody Screen MTS Gel Crossmatch Blood Bank Comment 12/21/17 12/22/17 12/22/17 17:45 06:10 06:10 WBC 13.4 H RBC 3.14 L Hgb 9.0 L Hct 28.0 L MCV 89.2 MCH 28.5 MCHC 31.9 L RDW 20.7 H Plt Count 338 MPV 9.5 Prelim Diff (Auto) Neut % (Auto) 52.8 Lymph % (Auto) 36.6 [place] % (Auto) 9.0 H Eos % (Auto) 1.3 Baso % (Auto) 0.3 Neut # (Auto) 7.1 Lymph # (Auto) 4.9 H [place] # (Auto) 1.2 H Eos # (Auto) 0.2 Baso # (Auto) 0.0 CBC Comment DIFF FINAL WBC Differential Total Counted Neutrophils % (Manual) Seg Neuts % (Manual) Band Neutrophils % Band Neuts % (Manual) Lymphocytes % Lymphocytes % (Manual) Monocytes % Monocytes % (Manual) Eosinophils % Eosinophils % (Manual) Basophils % Metamyelocytes % (Man) Neutrophils # (Manual) Abs Neuts (Manual) Metamyelocytes Myelocytes Nucleated RBCs Differential Comment Smudge Cells Toxic Granulation Toxic Vacuolation Dohle Bodies Platelet Estimate Platelet Morphology Plt Morphology Comment Basophilic Stippling Spherocytes Tear Drop Cells Ovalocytes Acanthocytes (Spur) RBC Morph Comment ESR Hematology Comments PT INR APTT 53.2 H D Fibrinogen Puncture Site Patient Temperature HCO3 Base Excess O2 Saturation ABG pH ABG pCO2 ABG pO2 ABG HCO3 ABG O2 Content ABG Base Excess ABG Carboxyhemoglobin ABG Methemoglobin Stepan Test Hemoglobin Carboxyhemoglobin O2 Delivery Device Liter Flow Vent Setting Inspired O2 Critical Value Sodium 133 L Potassium 4.9 Chloride 100 Carbon Dioxide 22.8 Anion Gap 10 BUN 26 H Creatinine 1.18 Estimated GFR 60 L POC Glucose Random Glucose 168 H Hemoglobin A1c Lactic Acid Calcium 7.1 L* Prot Corrected Calcium 7.7 L Phosphorus Magnesium Total Bilirubin Direct Bilirubin Indirect Bilirubin AST ALT Alkaline Phosphatase Ammonia Total Creatine Kinase Troponin I C-Reactive Protein B-Natriuretic Peptide Total Protein 5.9 L Albumin Prealbumin Triglycerides Cholesterol LDL Cholesterol HDL Cholesterol Cholesterol/HDL Ratio Thiamine Vitamin B12 Procalcitonin Free T4 TSH 3rd Generation Urine Color Urine Clarity Urine Turbidity Urine pH Ur Specific [place] Urine Protein Urine Glucose (UA) Urine Ketones Urine Occult Blood Urine Nitrate Urine Nitrite Urine Bilirubin Urine Urobilinogen Ur Leukocyte Esterase Urine RBC Urine WBC Urine WBC Clumps Ur Squamous Epith Cells Ur Transition Epith Cell Ur Renal Epithelial Cell Amorphous Sediment Urine Bacteria Hyaline Casts Granular Casts Urine Mucus Micro UA Comment Urine Culture Comments Urine Eosinophils Urine Osmolality Ur Random Creatinine Ur Random Sodium Pleural pH Pleural WBC Pleural Nuc Cells Pleural RBC Pleural Neutrophils Pleural Eosinophils Pleural Lymphocytes Pleural Monocytes Pleural Histocytes Pleural Mesothelial Pleural Total Protein Pleural Amylase Pleural LDH Pleural Glucose Nasal Screen MRSA (PCR) Stl C.difficile Tox PCR St C. diff Tox Epid 027 Vancomycin Trough Random Vancomycin Phenytoin Free Phenytoin LOWELL Screen RPR Blood Type Antibody Screen MTS Gel Crossmatch Blood Bank Comment 12/22/17 12/23/17 12/23/17 06:10 06:20 06:20 WBC 13.5 H RBC 2.73 L Hgb 7.9 L Hct 24.4 L MCV 89.2 MCH 28.8 MCHC 32.3 RDW 21.4 H Plt Count 380 MPV 9.5 Prelim Diff (Auto) Neut % (Auto) Lymph % (Auto) [place] % (Auto) Eos % (Auto) Baso % (Auto) Neut # (Auto) Lymph # (Auto) [place] # (Auto) Eos # (Auto) Baso # (Auto) CBC Comment WBC Differential Total Counted Neutrophils % (Manual) Seg Neuts % (Manual) Band Neutrophils % Band Neuts % (Manual) Lymphocytes % Lymphocytes % (Manual) Monocytes % Monocytes % (Manual) Eosinophils % Eosinophils % (Manual) Basophils % Metamyelocytes % (Man) Neutrophils # (Manual) Abs Neuts (Manual) Metamyelocytes Myelocytes Nucleated RBCs Differential Comment Smudge Cells Toxic Granulation Toxic Vacuolation Dohle Bodies Platelet Estimate Platelet Morphology Plt Morphology Comment Basophilic Stippling Spherocytes Tear Drop Cells Ovalocytes Acanthocytes (Spur) RBC Morph Comment ESR Hematology Comments PT 14.0 H INR 1.4 APTT 43.9 H Fibrinogen Puncture Site Patient Temperature HCO3 Base Excess O2 Saturation ABG pH ABG pCO2 ABG pO2 ABG HCO3 ABG O2 Content ABG Base Excess ABG Carboxyhemoglobin ABG Methemoglobin Stepan Test Hemoglobin Carboxyhemoglobin O2 Delivery Device Liter Flow Vent Setting Inspired O2 Critical Value Sodium 133 L Potassium 5.1 Chloride 99 Carbon Dioxide 27.5 Anion Gap 7 BUN 32 H Creatinine 1.24 Estimated GFR 56 L POC Glucose Random Glucose 183 H Hemoglobin A1c Lactic Acid Calcium 7.3 L* Prot Corrected Calcium 7.8 L Phosphorus Magnesium Total Bilirubin Direct Bilirubin Indirect Bilirubin AST ALT Alkaline Phosphatase Ammonia Total Creatine Kinase Troponin I C-Reactive Protein B-Natriuretic Peptide Total Protein 6.1 L Albumin Prealbumin Triglycerides Cholesterol LDL Cholesterol HDL Cholesterol Cholesterol/HDL Ratio Thiamine Vitamin B12 Procalcitonin Free T4 TSH 3rd Generation Urine Color Urine Clarity Urine Turbidity Urine pH Ur Specific [place] Urine Protein Urine Glucose (UA) Urine Ketones Urine Occult Blood Urine Nitrate Urine Nitrite Urine Bilirubin Urine Urobilinogen Ur Leukocyte Esterase Urine RBC Urine WBC Urine WBC Clumps Ur Squamous Epith Cells Ur Transition Epith Cell Ur Renal Epithelial Cell Amorphous Sediment Urine Bacteria Hyaline Casts Granular Casts Urine Mucus Micro UA Comment Urine Culture Comments Urine Eosinophils Urine Osmolality Ur Random Creatinine Ur Random Sodium Pleural pH Pleural WBC Pleural Nuc Cells Pleural RBC Pleural Neutrophils Pleural Eosinophils Pleural Lymphocytes Pleural Monocytes Pleural Histocytes Pleural Mesothelial Pleural Total Protein Pleural Amylase Pleural LDH Pleural Glucose Nasal Screen MRSA (PCR) Stl C.difficile Tox PCR St C. diff Tox Epid 027 Vancomycin Trough Random Vancomycin Phenytoin Free Phenytoin LOWELL Screen RPR Blood Type Antibody Screen MTS Gel Crossmatch Blood Bank Comment 12/23/17 12/23/17 12/24/17 06:20 10:10 09:02 WBC RBC Hgb Hct MCV MCH MCHC RDW Plt Count MPV Prelim Diff (Auto) Neut % (Auto) Lymph % (Auto) [place] % (Auto) Eos % (Auto) Baso % (Auto) Neut # (Auto) Lymph # (Auto) [place] # (Auto) Eos # (Auto) Baso # (Auto) CBC Comment WBC Differential Total Counted Neutrophils % (Manual) Seg Neuts % (Manual) Band Neutrophils % Band Neuts % (Manual) Lymphocytes % Lymphocytes % (Manual) Monocytes % Monocytes % (Manual) Eosinophils % Eosinophils % (Manual) Basophils % Metamyelocytes % (Man) Neutrophils # (Manual) Abs Neuts (Manual) Metamyelocytes Myelocytes Nucleated RBCs Differential Comment Smudge Cells Toxic Granulation Toxic Vacuolation Dohle Bodies Platelet Estimate Platelet Morphology Plt Morphology Comment Basophilic Stippling Spherocytes Tear Drop Cells Ovalocytes Acanthocytes (Spur) RBC Morph Comment ESR Hematology Comments PT 14.2 H INR 1.4 APTT 61.1 H D Fibrinogen Puncture Site Patient Temperature HCO3 Base Excess O2 Saturation ABG pH ABG pCO2 ABG pO2 ABG HCO3 ABG O2 Content ABG Base Excess ABG Carboxyhemoglobin ABG Methemoglobin Stepan Test Hemoglobin Carboxyhemoglobin O2 Delivery Device Liter Flow Vent Setting Inspired O2 Critical Value Sodium 131 L Potassium 5.3 H Chloride 98 Carbon Dioxide 25.2 Anion Gap 8 BUN 34 H Creatinine 1.25 Estimated GFR 56 L POC Glucose Random Glucose 207 H Hemoglobin A1c Lactic Acid Calcium 7.4 L* Prot Corrected Calcium 7.9 L Phosphorus Magnesium Total Bilirubin Direct Bilirubin Indirect Bilirubin AST ALT Alkaline Phosphatase Ammonia Total Creatine Kinase Troponin I C-Reactive Protein B-Natriuretic Peptide Total Protein 6.1 L Albumin Prealbumin Triglycerides Cholesterol LDL Cholesterol HDL Cholesterol Cholesterol/HDL Ratio Thiamine Vitamin B12 Procalcitonin Free T4 TSH 3rd Generation Urine Color Urine Clarity Urine Turbidity Urine pH Ur Specific [place] Urine Protein Urine Glucose (UA) Urine Ketones Urine Occult Blood Urine Nitrate Urine Nitrite Urine Bilirubin Urine Urobilinogen Ur Leukocyte Esterase Urine RBC Urine WBC Urine WBC Clumps Ur Squamous Epith Cells Ur Transition Epith Cell Ur Renal Epithelial Cell Amorphous Sediment Urine Bacteria Hyaline Casts Granular Casts Urine Mucus Micro UA Comment Urine Culture Comments Urine Eosinophils Urine Osmolality Ur Random Creatinine Ur Random Sodium Pleural pH Pleural WBC Pleural Nuc Cells Pleural RBC Pleural Neutrophils Pleural Eosinophils Pleural Lymphocytes Pleural Monocytes Pleural Histocytes Pleural Mesothelial Pleural Total Protein Pleural Amylase Pleural LDH Pleural Glucose Nasal Screen MRSA (PCR) Stl C.difficile Tox PCR NEGATIVE St C. diff Tox Epid 027 PRESUMPTIVE NEGATIVE Vancomycin Trough Random Vancomycin Phenytoin Free Phenytoin LOWELL Screen RPR Blood Type Antibody Screen MTS Gel Crossmatch Blood Bank Comment 12/24/17 12/24/17 12/24/17 09:02 09:02 09:02 WBC 11.8 H RBC 3.18 L Hgb 9.1 L Hct 28.5 L MCV 89.7 MCH 28.6 MCHC 31.9 L RDW 21.1 H Plt Count 416 MPV 9.3 Prelim Diff (Auto) Neut % (Auto) Lymph % (Auto) [place] % (Auto) Eos % (Auto) Baso % (Auto) Neut # (Auto) Lymph # (Auto) [place] # (Auto) Eos # (Auto) Baso # (Auto) CBC Comment WBC Differential Total Counted Neutrophils % (Manual) Seg Neuts % (Manual) Band Neutrophils % Band Neuts % (Manual) Lymphocytes % Lymphocytes % (Manual) Monocytes % Monocytes % (Manual) Eosinophils % Eosinophils % (Manual) Basophils % Metamyelocytes % (Man) Neutrophils # (Manual) Abs Neuts (Manual) Metamyelocytes Myelocytes Nucleated RBCs Differential Comment Smudge Cells Toxic Granulation Toxic Vacuolation Dohle Bodies Platelet Estimate Platelet Morphology Plt Morphology Comment Basophilic Stippling Spherocytes Tear Drop Cells Ovalocytes Acanthocytes (Spur) RBC Morph Comment ESR Hematology Comments PT 15.6 H INR 1.5 APTT 51.4 H Fibrinogen Puncture Site Patient Temperature HCO3 Base Excess O2 Saturation ABG pH ABG pCO2 ABG pO2 ABG HCO3 ABG O2 Content ABG Base Excess ABG Carboxyhemoglobin ABG Methemoglobin Stepan Test Hemoglobin Carboxyhemoglobin O2 Delivery Device Liter Flow Vent Setting Inspired O2 Critical Value Sodium Potassium Chloride Carbon Dioxide Anion Gap BUN Creatinine Estimated GFR POC Glucose Random Glucose Hemoglobin A1c Lactic Acid Calcium Prot Corrected Calcium Phosphorus Magnesium Total Bilirubin Direct Bilirubin Indirect Bilirubin AST ALT Alkaline Phosphatase Ammonia Total Creatine Kinase Troponin I C-Reactive Protein B-Natriuretic Peptide Total Protein Albumin Prealbumin Triglycerides Cholesterol LDL Cholesterol HDL Cholesterol Cholesterol/HDL Ratio Thiamine Vitamin B12 Procalcitonin Free T4 TSH 3rd Generation Urine Color Urine Clarity Urine Turbidity Urine pH Ur Specific [place] Urine Protein Urine Glucose (UA) Urine Ketones Urine Occult Blood Urine Nitrate Urine Nitrite Urine Bilirubin Urine Urobilinogen Ur Leukocyte Esterase Urine RBC Urine WBC Urine WBC Clumps Ur Squamous Epith Cells Ur Transition Epith Cell Ur Renal Epithelial Cell Amorphous Sediment Urine Bacteria Hyaline Casts Granular Casts Urine Mucus Micro UA Comment Urine Culture Comments Urine Eosinophils Urine Osmolality Ur Random Creatinine Ur Random Sodium Pleural pH Pleural WBC Pleural Nuc Cells Pleural RBC Pleural Neutrophils Pleural Eosinophils Pleural Lymphocytes Pleural Monocytes Pleural Histocytes Pleural Mesothelial Pleural Total Protein Pleural Amylase Pleural LDH Pleural Glucose Nasal Screen MRSA (PCR) Stl C.difficile Tox PCR St C. diff Tox Epid 027 Vancomycin Trough Random Vancomycin Phenytoin Free Phenytoin LOWELL Screen RPR Blood Type Antibody Screen MTS Gel Crossmatch Blood Bank Comment 12/25/17 12/25/17 12/25/17 06:33 06:33 06:33 WBC 11.9 H RBC 2.64 L Hgb 7.8 L Hct 23.6 L MCV 89.4 MCH 29.6 MCHC 33.1 RDW 20.7 H Plt Count 450 MPV 9.7 Prelim Diff (Auto) Neut % (Auto) Lymph % (Auto) [place] % (Auto) Eos % (Auto) Baso % (Auto) Neut # (Auto) Lymph # (Auto) [place] # (Auto) Eos # (Auto) Baso # (Auto) CBC Comment WBC Differential Total Counted Neutrophils % (Manual) Seg Neuts % (Manual) Band Neutrophils % Band Neuts % (Manual) Lymphocytes % Lymphocytes % (Manual) Monocytes % Monocytes % (Manual) Eosinophils % Eosinophils % (Manual) Basophils % Metamyelocytes % (Man) Neutrophils # (Manual) Abs Neuts (Manual) Metamyelocytes Myelocytes Nucleated RBCs Differential Comment Smudge Cells Toxic Granulation Toxic Vacuolation Dohle Bodies Platelet Estimate Platelet Morphology Plt Morphology Comment Basophilic Stippling Spherocytes Tear Drop Cells Ovalocytes Acanthocytes (Spur) RBC Morph Comment ESR Hematology Comments PT 17.0 H INR 1.7 APTT Fibrinogen Puncture Site Patient Temperature HCO3 Base Excess O2 Saturation ABG pH ABG pCO2 ABG pO2 ABG HCO3 ABG O2 Content ABG Base Excess ABG Carboxyhemoglobin ABG Methemoglobin Stepan Test Hemoglobin Carboxyhemoglobin O2 Delivery Device Liter Flow Vent Setting Inspired O2 Critical Value Sodium 132 L Potassium 4.8 Chloride 98 Carbon Dioxide 26.0 Anion Gap 8 BUN 32 H Creatinine 1.13 Estimated GFR 63 L POC Glucose Random Glucose 215 H Hemoglobin A1c Lactic Acid Calcium 7.5 L Prot Corrected Calcium Phosphorus Magnesium Total Bilirubin Direct Bilirubin Indirect Bilirubin AST ALT Alkaline Phosphatase Ammonia Total Creatine Kinase Troponin I C-Reactive Protein B-Natriuretic Peptide Total Protein Albumin Prealbumin Triglycerides Cholesterol LDL Cholesterol HDL Cholesterol Cholesterol/HDL Ratio Thiamine Vitamin B12 Procalcitonin Free T4 TSH 3rd Generation Urine Color Urine Clarity Urine Turbidity Urine pH Ur Specific [place] Urine Protein Urine Glucose (UA) Urine Ketones Urine Occult Blood Urine Nitrate Urine Nitrite Urine Bilirubin Urine Urobilinogen Ur Leukocyte Esterase Urine RBC Urine WBC Urine WBC Clumps Ur Squamous Epith Cells Ur Transition Epith Cell Ur Renal Epithelial Cell Amorphous Sediment Urine Bacteria Hyaline Casts Granular Casts Urine Mucus Micro UA Comment Urine Culture Comments Urine Eosinophils Urine Osmolality Ur Random Creatinine Ur Random Sodium Pleural pH Pleural WBC Pleural Nuc Cells Pleural RBC Pleural Neutrophils Pleural Eosinophils Pleural Lymphocytes Pleural Monocytes Pleural Histocytes Pleural Mesothelial Pleural Total Protein Pleural Amylase Pleural LDH Pleural Glucose Nasal Screen MRSA (PCR) Stl C.difficile Tox PCR St C. diff Tox Epid 027 Vancomycin Trough Random Vancomycin Phenytoin Free Phenytoin LOWELL Screen RPR Blood Type Antibody Screen MTS Gel Crossmatch Blood Bank Comment 12/25/17 12/26/17 12/26/17 06:33 05:42 07:26 WBC RBC Hgb Hct MCV MCH MCHC RDW Plt Count MPV Prelim Diff (Auto) Neut % (Auto) Lymph % (Auto) [place] % (Auto) Eos % (Auto) Baso % (Auto) Neut # (Auto) Lymph # (Auto) [place] # (Auto) Eos # (Auto) Baso # (Auto) CBC Comment WBC Differential Total Counted Neutrophils % (Manual) Seg Neuts % (Manual) Band Neutrophils % Band Neuts % (Manual) Lymphocytes % Lymphocytes % (Manual) Monocytes % Monocytes % (Manual) Eosinophils % Eosinophils % (Manual) Basophils % Metamyelocytes % (Man) Neutrophils # (Manual) Abs Neuts (Manual) Metamyelocytes Myelocytes Nucleated RBCs Differential Comment Smudge Cells Toxic Granulation Toxic Vacuolation Dohle Bodies Platelet Estimate Platelet Morphology Plt Morphology Comment Basophilic Stippling Spherocytes Tear Drop Cells Ovalocytes Acanthocytes (Spur) RBC Morph Comment ESR Hematology Comments PT 19.3 H INR 1.9 APTT 69.2 H D Fibrinogen Puncture Site Patient Temperature HCO3 Base Excess O2 Saturation ABG pH ABG pCO2 ABG pO2 ABG HCO3 ABG O2 Content ABG Base Excess ABG Carboxyhemoglobin ABG Methemoglobin Stepan Test Hemoglobin Carboxyhemoglobin O2 Delivery Device Liter Flow Vent Setting Inspired O2 Critical Value Sodium Potassium Chloride Carbon Dioxide Anion Gap BUN Creatinine Estimated GFR POC Glucose 249 H Random Glucose Hemoglobin A1c Lactic Acid Calcium Prot Corrected Calcium Phosphorus Magnesium Total Bilirubin Direct Bilirubin Indirect Bilirubin AST ALT Alkaline Phosphatase Ammonia Total Creatine Kinase Troponin I C-Reactive Protein B-Natriuretic Peptide Total Protein Albumin Prealbumin Triglycerides Cholesterol LDL Cholesterol HDL Cholesterol Cholesterol/HDL Ratio Thiamine Vitamin B12 Procalcitonin Free T4 TSH 3rd Generation Urine Color Urine Clarity Urine Turbidity Urine pH Ur Specific [place] Urine Protein Urine Glucose (UA) Urine Ketones Urine Occult Blood Urine Nitrate Urine Nitrite Urine Bilirubin Urine Urobilinogen Ur Leukocyte Esterase Urine RBC Urine WBC Urine WBC Clumps Ur Squamous Epith Cells Ur Transition Epith Cell Ur Renal Epithelial Cell Amorphous Sediment Urine Bacteria Hyaline Casts Granular Casts Urine Mucus Micro UA Comment Urine Culture Comments Urine Eosinophils Urine Osmolality Ur Random Creatinine Ur Random Sodium Pleural pH Pleural WBC Pleural Nuc Cells Pleural RBC Pleural Neutrophils Pleural Eosinophils Pleural Lymphocytes Pleural Monocytes Pleural Histocytes Pleural Mesothelial Pleural Total Protein Pleural Amylase Pleural LDH Pleural Glucose Nasal Screen MRSA (PCR) Stl C.difficile Tox PCR St C. diff Tox Epid 027 Vancomycin Trough Random Vancomycin Phenytoin Free Phenytoin LOWELL Screen RPR Blood Type Antibody Screen MTS Gel Crossmatch Blood Bank Comment 12/26/17 12/26/17 12/26/17 07:26 07:26 07:26 WBC 11.5 H RBC 2.94 L Hgb 8.6 L Hct 26.3 L MCV 89.6 MCH 29.1 MCHC 32.5 RDW 21.0 H Plt Count 451 H MPV 9.9 Prelim Diff (Auto) Neut % (Auto) Lymph % (Auto) [place] % (Auto) Eos % (Auto) Baso % (Auto) Neut # (Auto) Lymph # (Auto) [place] # (Auto) Eos # (Auto) Baso # (Auto) CBC Comment WBC Differential Total Counted Neutrophils % (Manual) Seg Neuts % (Manual) Band Neutrophils % Band Neuts % (Manual) Lymphocytes % Lymphocytes % (Manual) Monocytes % Monocytes % (Manual) Eosinophils % Eosinophils % (Manual) Basophils % Metamyelocytes % (Man) Neutrophils # (Manual) Abs Neuts (Manual) Metamyelocytes Myelocytes Nucleated RBCs Differential Comment Smudge Cells Toxic Granulation Toxic Vacuolation Dohle Bodies Platelet Estimate Platelet Morphology Plt Morphology Comment Basophilic Stippling Spherocytes Tear Drop Cells Ovalocytes Acanthocytes (Spur) RBC Morph Comment ESR Hematology Comments PT INR APTT 49.3 H Fibrinogen Puncture Site Patient Temperature HCO3 Base Excess O2 Saturation ABG pH ABG pCO2 ABG pO2 ABG HCO3 ABG O2 Content ABG Base Excess ABG Carboxyhemoglobin ABG Methemoglobin Stepan Test Hemoglobin Carboxyhemoglobin O2 Delivery Device Liter Flow Vent Setting Inspired O2 Critical Value Sodium 131 L Potassium 5.5 H Chloride 96 L Carbon Dioxide 25.7 Anion Gap 9 BUN 32 H Creatinine 1.18 Estimated GFR 60 L POC Glucose Random Glucose 200 H Hemoglobin A1c Lactic Acid Calcium 7.6 L Prot Corrected Calcium Phosphorus Magnesium Total Bilirubin Direct Bilirubin Indirect Bilirubin AST ALT Alkaline Phosphatase Ammonia Total Creatine Kinase Troponin I C-Reactive Protein B-Natriuretic Peptide Total Protein Albumin Prealbumin Triglycerides Cholesterol LDL Cholesterol HDL Cholesterol Cholesterol/HDL Ratio Thiamine Vitamin B12 Procalcitonin Free T4 TSH 3rd Generation Urine Color Urine Clarity Urine Turbidity Urine pH Ur Specific [place] Urine Protein Urine Glucose (UA) Urine Ketones Urine Occult Blood Urine Nitrate Urine Nitrite Urine Bilirubin Urine Urobilinogen Ur Leukocyte Esterase Urine RBC Urine WBC Urine WBC Clumps Ur Squamous Epith Cells Ur Transition Epith Cell Ur Renal Epithelial Cell Amorphous Sediment Urine Bacteria Hyaline Casts Granular Casts Urine Mucus Micro UA Comment Urine Culture Comments Urine Eosinophils Urine Osmolality Ur Random Creatinine Ur Random Sodium Pleural pH Pleural WBC Pleural Nuc Cells Pleural RBC Pleural Neutrophils Pleural Eosinophils Pleural Lymphocytes Pleural Monocytes Pleural Histocytes Pleural Mesothelial Pleural Total Protein Pleural Amylase Pleural LDH Pleural Glucose Nasal Screen MRSA (PCR) Stl C.difficile Tox PCR St C. diff Tox Epid 027 Vancomycin Trough Random Vancomycin Phenytoin Free Phenytoin LOWELL Screen RPR Blood Type Antibody Screen MTS Gel Crossmatch Blood Bank Comment 12/26/17 12/26/17 12/26/17 13:07 17:08 20:21 WBC RBC Hgb Hct MCV MCH MCHC RDW Plt Count MPV Prelim Diff (Auto) Neut % (Auto) Lymph % (Auto) [place] % (Auto) Eos % (Auto) Baso % (Auto) Neut # (Auto) Lymph # (Auto) [place] # (Auto) Eos # (Auto) Baso # (Auto) CBC Comment WBC Differential Total Counted Neutrophils % (Manual) Seg Neuts % (Manual) Band Neutrophils % Band Neuts % (Manual) Lymphocytes % Lymphocytes % (Manual) Monocytes % Monocytes % (Manual) Eosinophils % Eosinophils % (Manual) Basophils % Metamyelocytes % (Man) Neutrophils # (Manual) Abs Neuts (Manual) Metamyelocytes Myelocytes Nucleated RBCs Differential Comment Smudge Cells Toxic Granulation Toxic Vacuolation Dohle Bodies Platelet Estimate Platelet Morphology Plt Morphology Comment Basophilic Stippling Spherocytes Tear Drop Cells Ovalocytes Acanthocytes (Spur) RBC Morph Comment ESR Hematology Comments PT INR APTT Fibrinogen Puncture Site Patient Temperature HCO3 Base Excess O2 Saturation ABG pH ABG pCO2 ABG pO2 ABG HCO3 ABG O2 Content ABG Base Excess ABG Carboxyhemoglobin ABG Methemoglobin Stepan Test Hemoglobin Carboxyhemoglobin O2 Delivery Device Liter Flow Vent Setting Inspired O2 Critical Value Sodium Potassium District Commercial Superintendent Chloride District Commercial Superintendent Carbon Dioxide District Commercial Superintendent Anion Gap District Commercial Superintendent BUN District Commercial Superintendent Creatinine District Commercial Superintendent Estimated GFR District Commercial Superintendent POC Glucose 279 H 311 H Random Glucose District Commercial Superintendent Hemoglobin A1c Lactic Acid Calcium District Commercial Superintendent Prot Corrected Calcium District Commercial Superintendent Phosphorus Magnesium Total Bilirubin Direct Bilirubin Indirect Bilirubin AST ALT Alkaline Phosphatase Ammonia Total Creatine Kinase Troponin I C-Reactive Protein B-Natriuretic Peptide Total Protein District Commercial Superintendent Albumin Prealbumin Triglycerides Cholesterol LDL Cholesterol HDL Cholesterol Cholesterol/HDL Ratio Thiamine Vitamin B12 Procalcitonin Free T4 TSH 3rd Generation Urine Color Urine Clarity Urine Turbidity Urine pH Ur Specific [place] Urine Protein Urine Glucose (UA) Urine Ketones Urine Occult Blood Urine Nitrate Urine Nitrite Urine Bilirubin Urine Urobilinogen Ur Leukocyte Esterase Urine RBC Urine WBC Urine WBC Clumps Ur Squamous Epith Cells Ur Transition Epith Cell Ur Renal Epithelial Cell Amorphous Sediment Urine Bacteria Hyaline Casts Granular Casts Urine Mucus Micro UA Comment Urine Culture Comments Urine Eosinophils Urine Osmolality Ur Random Creatinine Ur Random Sodium Pleural pH Pleural WBC Pleural Nuc Cells Pleural RBC Pleural Neutrophils Pleural Eosinophils Pleural Lymphocytes Pleural Monocytes Pleural Histocytes Pleural Mesothelial Pleural Total Protein Pleural Amylase Pleural LDH Pleural Glucose Nasal Screen MRSA (PCR) Stl C.difficile Tox PCR St C. diff Tox Epid 027 Vancomycin Trough Random Vancomycin Phenytoin Free Phenytoin LOWELL Screen RPR Blood Type Antibody Screen MTS Gel Crossmatch Blood Bank Comment 12/26/17 12/27/17 12/27/17 20:21 00:40 06:10 WBC RBC Hgb Hct MCV MCH MCHC RDW Plt Count MPV Prelim Diff (Auto) Neut % (Auto) Lymph % (Auto) [place] % (Auto) Eos % (Auto) Baso % (Auto) Neut # (Auto) Lymph # (Auto) [place] # (Auto) Eos # (Auto) Baso # (Auto) CBC Comment WBC Differential Total Counted Neutrophils % (Manual) Seg Neuts % (Manual) Band Neutrophils % Band Neuts % (Manual) Lymphocytes % Lymphocytes % (Manual) Monocytes % Monocytes % (Manual) Eosinophils % Eosinophils % (Manual) Basophils % Metamyelocytes % (Man) Neutrophils # (Manual) Abs Neuts (Manual) Metamyelocytes Myelocytes Nucleated RBCs Differential Comment Smudge Cells Toxic Granulation Toxic Vacuolation Dohle Bodies Platelet Estimate Platelet Morphology Plt Morphology Comment Basophilic Stippling Spherocytes Tear Drop Cells Ovalocytes Acanthocytes (Spur) RBC Morph Comment ESR Hematology Comments PT 18.3 H INR 1.8 APTT 67.5 H D Fibrinogen Puncture Site Patient Temperature HCO3 Base Excess O2 Saturation ABG pH ABG pCO2 ABG pO2 ABG HCO3 ABG O2 Content ABG Base Excess ABG Carboxyhemoglobin ABG Methemoglobin Stepan Test Hemoglobin Carboxyhemoglobin O2 Delivery Device Liter Flow Vent Setting Inspired O2 Critical Value Sodium 129 L Potassium 5.2 H Chloride 94 L Carbon Dioxide 25.2 Anion Gap 10 BUN 38 H Creatinine 1.34 H Estimated GFR 52 L POC Glucose 253 H Random Glucose 232 H Hemoglobin A1c Lactic Acid Calcium 7.4 L* Prot Corrected Calcium 7.7 L Phosphorus Magnesium Total Bilirubin Direct Bilirubin Indirect Bilirubin AST ALT Alkaline Phosphatase Ammonia Total Creatine Kinase Troponin I C-Reactive Protein B-Natriuretic Peptide Total Protein 6.5 Albumin Prealbumin Triglycerides Cholesterol LDL Cholesterol HDL Cholesterol Cholesterol/HDL Ratio Thiamine Vitamin B12 Procalcitonin Free T4 TSH 3rd Generation Urine Color Urine Clarity Urine Turbidity Urine pH Ur Specific [place] Urine Protein Urine Glucose (UA) Urine Ketones Urine Occult Blood Urine Nitrate Urine Nitrite Urine Bilirubin Urine Urobilinogen Ur Leukocyte Esterase Urine RBC Urine WBC Urine WBC Clumps Ur Squamous Epith Cells Ur Transition Epith Cell Ur Renal Epithelial Cell Amorphous Sediment Urine Bacteria Hyaline Casts Granular Casts Urine Mucus Micro UA Comment Urine Culture Comments Urine Eosinophils Urine Osmolality Ur Random Creatinine Ur Random Sodium Pleural pH Pleural WBC Pleural Nuc Cells Pleural RBC Pleural Neutrophils Pleural Eosinophils Pleural Lymphocytes Pleural Monocytes Pleural Histocytes Pleural Mesothelial Pleural Total Protein Pleural Amylase Pleural LDH Pleural Glucose Nasal Screen MRSA (PCR) Stl C.difficile Tox PCR St C. diff Tox Epid 027 Vancomycin Trough Random Vancomycin Phenytoin Free Phenytoin LOWELL Screen RPR Blood Type Antibody Screen MTS Gel Crossmatch Blood Bank Comment 12/27/17 12/27/17 12/27/17 06:10 06:10 06:33 WBC 13.3 H RBC 2.87 L Hgb 8.3 L Hct 25.3 L MCV 88.1 MCH 28.9 MCHC 32.8 RDW 21.2 H Plt Count 467 H MPV 8.8 Prelim Diff (Auto) Slide review pending Neut % (Auto) 43.9 Lymph % (Auto) 43.2 [place] % (Auto) 12.1 H Eos % (Auto) 0.4 Baso % (Auto) 0.4 Neut # (Auto) 5.8 Lymph # (Auto) 5.8 H [place] # (Auto) 1.6 H Eos # (Auto) 0.1 Baso # (Auto) 0.1 CBC Comment WBC Differential Manual diff final Total Counted Neutrophils % (Manual) Seg Neuts % (Manual) 30 Band Neutrophils % Band Neuts % (Manual) 6 Lymphocytes % Lymphocytes % (Manual) 58 H Monocytes % Monocytes % (Manual) 5 Eosinophils % Eosinophils % (Manual) Basophils % Metamyelocytes % (Man) 1 Neutrophils # (Manual) Abs Neuts (Manual) 4.9 Metamyelocytes Myelocytes Nucleated RBCs Differential Comment . Smudge Cells Present H Toxic Granulation Toxic Vacuolation Dohle Bodies Platelet Estimate High H Platelet Morphology Normal Plt Morphology Comment Basophilic Stippling Spherocytes Tear Drop Cells Ovalocytes Acanthocytes (Spur) Occ H RBC Morph Comment ESR Hematology Comments PT INR APTT Fibrinogen Puncture Site Patient Temperature HCO3 Base Excess O2 Saturation ABG pH ABG pCO2 ABG pO2 ABG HCO3 ABG O2 Content ABG Base Excess ABG Carboxyhemoglobin ABG Methemoglobin Stepan Test Hemoglobin Carboxyhemoglobin O2 Delivery Device Liter Flow Vent Setting Inspired O2 Critical Value Sodium 131 L Potassium 5.6 H Chloride 96 L Carbon Dioxide 26.6 Anion Gap 8 BUN 39 H Creatinine 1.39 H Estimated GFR 49 L POC Glucose 220 H Random Glucose 184 H Hemoglobin A1c Lactic Acid Calcium 7.4 L* Prot Corrected Calcium 7.7 L Phosphorus Magnesium Total Bilirubin Direct Bilirubin Indirect Bilirubin AST ALT Alkaline Phosphatase Ammonia Total Creatine Kinase Troponin I C-Reactive Protein B-Natriuretic Peptide Total Protein 6.6 Albumin Prealbumin Triglycerides Cholesterol LDL Cholesterol HDL Cholesterol Cholesterol/HDL Ratio Thiamine Vitamin B12 Procalcitonin Free T4 TSH 3rd Generation Urine Color Urine Clarity Urine Turbidity Urine pH Ur Specific [place] Urine Protein Urine Glucose (UA) Urine Ketones Urine Occult Blood Urine Nitrate Urine Nitrite Urine Bilirubin Urine Urobilinogen Ur Leukocyte Esterase Urine RBC Urine WBC Urine WBC Clumps Ur Squamous Epith Cells Ur Transition Epith Cell Ur Renal Epithelial Cell Amorphous Sediment Urine Bacteria Hyaline Casts Granular Casts Urine Mucus Micro UA Comment Urine Culture Comments Urine Eosinophils Urine Osmolality Ur Random Creatinine Ur Random Sodium Pleural pH Pleural WBC Pleural Nuc Cells Pleural RBC Pleural Neutrophils Pleural Eosinophils Pleural Lymphocytes Pleural Monocytes Pleural Histocytes Pleural Mesothelial Pleural Total Protein Pleural Amylase Pleural LDH Pleural Glucose Nasal Screen MRSA (PCR) Stl C.difficile Tox PCR St C. diff Tox Epid 027 Vancomycin Trough Random Vancomycin Phenytoin Free Phenytoin LOWELL Screen RPR Blood Type Antibody Screen MTS Gel Crossmatch Blood Bank Comment 12/27/17 12/27/17 12/27/17 12:05 17:28 18:35 WBC RBC Hgb Hct MCV MCH MCHC RDW Plt Count MPV Prelim Diff (Auto) Neut % (Auto) Lymph % (Auto) [place] % (Auto) Eos % (Auto) Baso % (Auto) Neut # (Auto) Lymph # (Auto) [place] # (Auto) Eos # (Auto) Baso # (Auto) CBC Comment WBC Differential Total Counted Neutrophils % (Manual) Seg Neuts % (Manual) Band Neutrophils % Band Neuts % (Manual) Lymphocytes % Lymphocytes % (Manual) Monocytes % Monocytes % (Manual) Eosinophils % Eosinophils % (Manual) Basophils % Metamyelocytes % (Man) Neutrophils # (Manual) Abs Neuts (Manual) Metamyelocytes Myelocytes Nucleated RBCs Differential Comment Smudge Cells Toxic Granulation Toxic Vacuolation Dohle Bodies Platelet Estimate Platelet Morphology Plt Morphology Comment Basophilic Stippling Spherocytes Tear Drop Cells Ovalocytes Acanthocytes (Spur) RBC Morph Comment ESR Hematology Comments PT INR APTT 59.7 H Fibrinogen Puncture Site Patient Temperature HCO3 Base Excess O2 Saturation ABG pH ABG pCO2 ABG pO2 ABG HCO3 ABG O2 Content ABG Base Excess ABG Carboxyhemoglobin ABG Methemoglobin Stepan Test Hemoglobin Carboxyhemoglobin O2 Delivery Device Liter Flow Vent Setting Inspired O2 Critical Value Sodium Potassium Chloride Carbon Dioxide Anion Gap BUN Creatinine Estimated GFR POC Glucose 233 H 269 H Random Glucose Hemoglobin A1c Lactic Acid Calcium Prot Corrected Calcium Phosphorus Magnesium Total Bilirubin Direct Bilirubin Indirect Bilirubin AST ALT Alkaline Phosphatase Ammonia Total Creatine Kinase Troponin I C-Reactive Protein B-Natriuretic Peptide Total Protein Albumin Prealbumin Triglycerides Cholesterol LDL Cholesterol HDL Cholesterol Cholesterol/HDL Ratio Thiamine Vitamin B12 Procalcitonin Free T4 TSH 3rd Generation Urine Color Urine Clarity Urine Turbidity Urine pH Ur Specific [place] Urine Protein Urine Glucose (UA) Urine Ketones Urine Occult Blood Urine Nitrate Urine Nitrite Urine Bilirubin Urine Urobilinogen Ur Leukocyte Esterase Urine RBC Urine WBC Urine WBC Clumps Ur Squamous Epith Cells Ur Transition Epith Cell Ur Renal Epithelial Cell Amorphous Sediment Urine Bacteria Hyaline Casts Granular Casts Urine Mucus Micro UA Comment Urine Culture Comments Urine Eosinophils Urine Osmolality Ur Random Creatinine Ur Random Sodium Pleural pH Pleural WBC Pleural Nuc Cells Pleural RBC Pleural Neutrophils Pleural Eosinophils Pleural Lymphocytes Pleural Monocytes Pleural Histocytes Pleural Mesothelial Pleural Total Protein Pleural Amylase Pleural LDH Pleural Glucose Nasal Screen MRSA (PCR) Stl C.difficile Tox PCR St C. diff Tox Epid 027 Vancomycin Trough Random Vancomycin Phenytoin Free Phenytoin LOWELL Screen RPR Blood Type Antibody Screen MTS Gel Crossmatch Blood Bank Comment 12/27/17 12/28/17 12/28/17 23:47 00:46 06:30 WBC RBC Hgb Hct MCV MCH MCHC RDW Plt Count MPV Prelim Diff (Auto) Neut % (Auto) Lymph % (Auto) [place] % (Auto) Eos % (Auto) Baso % (Auto) Neut # (Auto) Lymph # (Auto) [place] # (Auto) Eos # (Auto) Baso # (Auto) CBC Comment WBC Differential Total Counted Neutrophils % (Manual) Seg Neuts % (Manual) Band Neutrophils % Band Neuts % (Manual) Lymphocytes % Lymphocytes % (Manual) Monocytes % Monocytes % (Manual) Eosinophils % Eosinophils % (Manual) Basophils % Metamyelocytes % (Man) Neutrophils # (Manual) Abs Neuts (Manual) Metamyelocytes Myelocytes Nucleated RBCs Differential Comment Smudge Cells Toxic Granulation Toxic Vacuolation Dohle Bodies Platelet Estimate Platelet Morphology Plt Morphology Comment Basophilic Stippling Spherocytes Tear Drop Cells Ovalocytes Acanthocytes (Spur) RBC Morph Comment ESR Hematology Comments PT INR APTT 59.9 H Fibrinogen Puncture Site Patient Temperature HCO3 Base Excess O2 Saturation ABG pH ABG pCO2 ABG pO2 ABG HCO3 ABG O2 Content ABG Base Excess ABG Carboxyhemoglobin ABG Methemoglobin Stepan Test Hemoglobin Carboxyhemoglobin O2 Delivery Device Liter Flow Vent Setting Inspired O2 Critical Value Sodium Potassium Chloride Carbon Dioxide Anion Gap BUN Creatinine Estimated GFR POC Glucose 322 H 293 H Random Glucose Hemoglobin A1c Lactic Acid Calcium Prot Corrected Calcium Phosphorus Magnesium Total Bilirubin Direct Bilirubin Indirect Bilirubin AST ALT Alkaline Phosphatase Ammonia Total Creatine Kinase Troponin I C-Reactive Protein B-Natriuretic Peptide Total Protein Albumin Prealbumin Triglycerides Cholesterol LDL Cholesterol HDL Cholesterol Cholesterol/HDL Ratio Thiamine Vitamin B12 Procalcitonin Free T4 TSH 3rd Generation Urine Color Urine Clarity Urine Turbidity Urine pH Ur Specific [place] Urine Protein Urine Glucose (UA) Urine Ketones Urine Occult Blood Urine Nitrate Urine Nitrite Urine Bilirubin Urine Urobilinogen Ur Leukocyte Esterase Urine RBC Urine WBC Urine WBC Clumps Ur Squamous Epith Cells Ur Transition Epith Cell Ur Renal Epithelial Cell Amorphous Sediment Urine Bacteria Hyaline Casts Granular Casts Urine Mucus Micro UA Comment Urine Culture Comments Urine Eosinophils Urine Osmolality Ur Random Creatinine Ur Random Sodium Pleural pH Pleural WBC Pleural Nuc Cells Pleural RBC Pleural Neutrophils Pleural Eosinophils Pleural Lymphocytes Pleural Monocytes Pleural Histocytes Pleural Mesothelial Pleural Total Protein Pleural Amylase Pleural LDH Pleural Glucose Nasal Screen MRSA (PCR) Stl C.difficile Tox PCR St C. diff Tox Epid 027 Vancomycin Trough Random Vancomycin Phenytoin Free Phenytoin LOWELL Screen RPR Blood Type Antibody Screen MTS Gel Crossmatch Blood Bank Comment 12/28/17 12/28/17 12/29/17 09:16 09:16 00:06 WBC RBC Hgb Hct MCV MCH MCHC RDW Plt Count MPV Prelim Diff (Auto) Neut % (Auto) Lymph % (Auto) [place] % (Auto) Eos % (Auto) Baso % (Auto) Neut # (Auto) Lymph # (Auto) [place] # (Auto) Eos # (Auto) Baso # (Auto) CBC Comment WBC Differential Total Counted Neutrophils % (Manual) Seg Neuts % (Manual) Band Neutrophils % Band Neuts % (Manual) Lymphocytes % Lymphocytes % (Manual) Monocytes % Monocytes % (Manual) Eosinophils % Eosinophils % (Manual) Basophils % Metamyelocytes % (Man) Neutrophils # (Manual) Abs Neuts (Manual) Metamyelocytes Myelocytes Nucleated RBCs Differential Comment Smudge Cells Toxic Granulation Toxic Vacuolation Dohle Bodies Platelet Estimate Platelet Morphology Plt Morphology Comment Basophilic Stippling Spherocytes Tear Drop Cells Ovalocytes Acanthocytes (Spur) RBC Morph Comment ESR Hematology Comments PT 18.4 H INR 1.8 APTT 55.9 H Fibrinogen Puncture Site Patient Temperature HCO3 Base Excess O2 Saturation ABG pH ABG pCO2 ABG pO2 ABG HCO3 ABG O2 Content ABG Base Excess ABG Carboxyhemoglobin ABG Methemoglobin Stepan Test Hemoglobin Carboxyhemoglobin O2 Delivery Device Liter Flow Vent Setting Inspired O2 Critical Value Sodium 130 L Potassium 5.5 H Chloride 94 L Carbon Dioxide 26.9 Anion Gap 9 BUN 42 H Creatinine 1.47 H Estimated GFR 46 L POC Glucose 361 H Random Glucose 239 H Hemoglobin A1c Lactic Acid Calcium 7.3 L* Prot Corrected Calcium 7.5 L Phosphorus Magnesium Total Bilirubin Direct Bilirubin Indirect Bilirubin AST ALT Alkaline Phosphatase Ammonia Total Creatine Kinase Troponin I C-Reactive Protein B-Natriuretic Peptide Total Protein 6.7 Albumin Prealbumin Triglycerides Cholesterol LDL Cholesterol HDL Cholesterol Cholesterol/HDL Ratio Thiamine Vitamin B12 Procalcitonin Free T4 TSH 3rd Generation Urine Color Urine Clarity Urine Turbidity Urine pH Ur Specific [place] Urine Protein Urine Glucose (UA) Urine Ketones Urine Occult Blood Urine Nitrate Urine Nitrite Urine Bilirubin Urine Urobilinogen Ur Leukocyte Esterase Urine RBC Urine WBC Urine WBC Clumps Ur Squamous Epith Cells Ur Transition Epith Cell Ur Renal Epithelial Cell Amorphous Sediment Urine Bacteria Hyaline Casts Granular Casts Urine Mucus Micro UA Comment Urine Culture Comments Urine Eosinophils Urine Osmolality Ur Random Creatinine Ur Random Sodium Pleural pH Pleural WBC Pleural Nuc Cells Pleural RBC Pleural Neutrophils Pleural Eosinophils Pleural Lymphocytes Pleural Monocytes Pleural Histocytes Pleural Mesothelial Pleural Total Protein Pleural Amylase Pleural LDH Pleural Glucose Nasal Screen MRSA (PCR) Stl C.difficile Tox PCR St C. diff Tox Epid 027 Vancomycin Trough Random Vancomycin Phenytoin Free Phenytoin LOWELL Screen RPR Blood Type Antibody Screen MTS Gel Crossmatch Blood Bank Comment 12/29/17 12/29/17 12/29/17 05:36 05:36 05:36 WBC 10.7 RBC 2.65 L Hgb 7.7 L Hct 23.8 L MCV 89.8 MCH 29.1 MCHC 32.4 RDW 21.7 H Plt Count 499 H MPV 9.2 Prelim Diff (Auto) Neut % (Auto) 49.3 Lymph % (Auto) 34.5 [place] % (Auto) 15.5 H Eos % (Auto) 0.2 Baso % (Auto) 0.5 Neut # (Auto) 5.3 Lymph # (Auto) 3.7 [place] # (Auto) 1.7 H Eos # (Auto) 0.0 Baso # (Auto) 0.1 CBC Comment WBC Differential . Total Counted Neutrophils % (Manual) Seg Neuts % (Manual) Band Neutrophils % Band Neuts % (Manual) Lymphocytes % Lymphocytes % (Manual) Monocytes % Monocytes % (Manual) Eosinophils % Eosinophils % (Manual) Basophils % Metamyelocytes % (Man) Neutrophils # (Manual) Abs Neuts (Manual) Metamyelocytes Myelocytes Nucleated RBCs Differential Comment Auto diff final Smudge Cells Toxic Granulation Toxic Vacuolation Dohle Bodies Platelet Estimate Platelet Morphology Plt Morphology Comment Basophilic Stippling Spherocytes Tear Drop Cells Ovalocytes Acanthocytes (Spur) RBC Morph Comment ESR Hematology Comments PT 18.0 H INR 1.8 APTT Fibrinogen Puncture Site Patient Temperature HCO3 Base Excess O2 Saturation ABG pH ABG pCO2 ABG pO2 ABG HCO3 ABG O2 Content ABG Base Excess ABG Carboxyhemoglobin ABG Methemoglobin Stepan Test Hemoglobin Carboxyhemoglobin O2 Delivery Device Liter Flow Vent Setting Inspired O2 Critical Value Sodium 130 L Potassium 5.6 H Chloride 94 L Carbon Dioxide 25.8 Anion Gap 10 BUN 47 H Creatinine 1.63 H Estimated GFR 41 L POC Glucose Random Glucose 318 H Hemoglobin A1c Lactic Acid Calcium 7.9 L Prot Corrected Calcium Phosphorus Magnesium Total Bilirubin Direct Bilirubin Indirect Bilirubin AST ALT Alkaline Phosphatase Ammonia Total Creatine Kinase Troponin I C-Reactive Protein B-Natriuretic Peptide Total Protein Albumin Prealbumin Triglycerides Cholesterol LDL Cholesterol HDL Cholesterol Cholesterol/HDL Ratio Thiamine Vitamin B12 Procalcitonin Free T4 TSH 3rd Generation Urine Color Urine Clarity Urine Turbidity Urine pH Ur Specific [place] Urine Protein Urine Glucose (UA) Urine Ketones Urine Occult Blood Urine Nitrate Urine Nitrite Urine Bilirubin Urine Urobilinogen Ur Leukocyte Esterase Urine RBC Urine WBC Urine WBC Clumps Ur Squamous Epith Cells Ur Transition Epith Cell Ur Renal Epithelial Cell Amorphous Sediment Urine Bacteria Hyaline Casts Granular Casts Urine Mucus Micro UA Comment Urine Culture Comments Urine Eosinophils Urine Osmolality Ur Random Creatinine Ur Random Sodium Pleural pH Pleural WBC Pleural Nuc Cells Pleural RBC Pleural Neutrophils Pleural Eosinophils Pleural Lymphocytes Pleural Monocytes Pleural Histocytes Pleural Mesothelial Pleural Total Protein Pleural Amylase Pleural LDH Pleural Glucose Nasal Screen MRSA (PCR) Stl C.difficile Tox PCR St C. diff Tox Epid 027 Vancomycin Trough Random Vancomycin Phenytoin Free Phenytoin LOWELL Screen RPR Blood Type Antibody Screen MTS Gel Crossmatch Blood Bank Comment 12/29/17 12/29/17 12/29/17 05:45 12:22 12:58 WBC RBC Hgb Hct MCV MCH MCHC RDW Plt Count MPV Prelim Diff (Auto) Neut % (Auto) Lymph % (Auto) [place] % (Auto) Eos % (Auto) Baso % (Auto) Neut # (Auto) Lymph # (Auto) [place] # (Auto) Eos # (Auto) Baso # (Auto) CBC Comment WBC Differential Total Counted Neutrophils % (Manual) Seg Neuts % (Manual) Band Neutrophils % Band Neuts % (Manual) Lymphocytes % Lymphocytes % (Manual) Monocytes % Monocytes % (Manual) Eosinophils % Eosinophils % (Manual) Basophils % Metamyelocytes % (Man) Neutrophils # (Manual) Abs Neuts (Manual) Metamyelocytes Myelocytes Nucleated RBCs Differential Comment Smudge Cells Toxic Granulation Toxic Vacuolation Dohle Bodies Platelet Estimate Platelet Morphology Plt Morphology Comment Basophilic Stippling Spherocytes Tear Drop Cells Ovalocytes Acanthocytes (Spur) RBC Morph Comment ESR Hematology Comments PT INR APTT 44.1 H D Fibrinogen Puncture Site Patient Temperature HCO3 Base Excess O2 Saturation ABG pH ABG pCO2 ABG pO2 ABG HCO3 ABG O2 Content ABG Base Excess ABG Carboxyhemoglobin ABG Methemoglobin Stepan Test Hemoglobin Carboxyhemoglobin O2 Delivery Device Liter Flow Vent Setting Inspired O2 Critical Value Sodium Potassium Chloride Carbon Dioxide Anion Gap BUN Creatinine Estimated GFR POC Glucose 383 H 352 H Random Glucose Hemoglobin A1c Lactic Acid Calcium Prot Corrected Calcium Phosphorus Magnesium Total Bilirubin Direct Bilirubin Indirect Bilirubin AST ALT Alkaline Phosphatase Ammonia Total Creatine Kinase Troponin I C-Reactive Protein B-Natriuretic Peptide Total Protein Albumin Prealbumin Triglycerides Cholesterol LDL Cholesterol HDL Cholesterol Cholesterol/HDL Ratio Thiamine Vitamin B12 Procalcitonin Free T4 TSH 3rd Generation Urine Color Urine Clarity Urine Turbidity Urine pH Ur Specific [place] Urine Protein Urine Glucose (UA) Urine Ketones Urine Occult Blood Urine Nitrate Urine Nitrite Urine Bilirubin Urine Urobilinogen Ur Leukocyte Esterase Urine RBC Urine WBC Urine WBC Clumps Ur Squamous Epith Cells Ur Transition Epith Cell Ur Renal Epithelial Cell Amorphous Sediment Urine Bacteria Hyaline Casts Granular Casts Urine Mucus Micro UA Comment Urine Culture Comments Urine Eosinophils Urine Osmolality Ur Random Creatinine Ur Random Sodium Pleural pH Pleural WBC Pleural Nuc Cells Pleural RBC Pleural Neutrophils Pleural Eosinophils Pleural Lymphocytes Pleural Monocytes Pleural Histocytes Pleural Mesothelial Pleural Total Protein Pleural Amylase Pleural LDH Pleural Glucose Nasal Screen MRSA (PCR) Stl C.difficile Tox PCR St C. diff Tox Epid 027 Vancomycin Trough Random Vancomycin Phenytoin Free Phenytoin LOWELL Screen RPR Blood Type Antibody Screen MTS Gel Crossmatch Blood Bank Comment 12/29/17 12/29/17 12/29/17 18:00 21:12 21:50 WBC 9.8 RBC 2.61 L Hgb 7.6 L Hct 23.3 L MCV 89.3 MCH 29.1 MCHC 32.6 RDW 21.1 H Plt Count 454 H MPV 8.8 Prelim Diff (Auto) Neut % (Auto) Lymph % (Auto) [place] % (Auto) Eos % (Auto) Baso % (Auto) Neut # (Auto) Lymph # (Auto) [place] # (Auto) Eos # (Auto) Baso # (Auto) CBC Comment WBC Differential Total Counted Neutrophils % (Manual) Seg Neuts % (Manual) Band Neutrophils % Band Neuts % (Manual) Lymphocytes % Lymphocytes % (Manual) Monocytes % Monocytes % (Manual) Eosinophils % Eosinophils % (Manual) Basophils % Metamyelocytes % (Man) Neutrophils # (Manual) Abs Neuts (Manual) Metamyelocytes Myelocytes Nucleated RBCs Differential Comment Smudge Cells Toxic Granulation Toxic Vacuolation Dohle Bodies Platelet Estimate Platelet Morphology Plt Morphology Comment Basophilic Stippling Spherocytes Tear Drop Cells Ovalocytes Acanthocytes (Spur) RBC Morph Comment ESR Hematology Comments PT INR APTT Fibrinogen Puncture Site Patient Temperature HCO3 Base Excess O2 Saturation ABG pH ABG pCO2 ABG pO2 ABG HCO3 ABG O2 Content ABG Base Excess ABG Carboxyhemoglobin ABG Methemoglobin Stepan Test Hemoglobin Carboxyhemoglobin O2 Delivery Device Liter Flow Vent Setting Inspired O2 Critical Value Sodium 132 L Potassium 4.6 D Chloride 95 L Carbon Dioxide 26.6 Anion Gap 10 BUN 49 H Creatinine 1.54 H Estimated GFR 44 L POC Glucose 335 H Random Glucose 245 H Hemoglobin A1c Lactic Acid Calcium 7.9 L Prot Corrected Calcium Phosphorus Magnesium Total Bilirubin Direct Bilirubin Indirect Bilirubin AST ALT Alkaline Phosphatase Ammonia Total Creatine Kinase Troponin I C-Reactive Protein B-Natriuretic Peptide Total Protein Albumin Prealbumin Triglycerides Cholesterol LDL Cholesterol HDL Cholesterol Cholesterol/HDL Ratio Thiamine Vitamin B12 Procalcitonin Free T4 TSH 3rd Generation Urine Color Urine Clarity Urine Turbidity Urine pH Ur Specific [place] Urine Protein Urine Glucose (UA) Urine Ketones Urine Occult Blood Urine Nitrate Urine Nitrite Urine Bilirubin Urine Urobilinogen Ur Leukocyte Esterase Urine RBC Urine WBC Urine WBC Clumps Ur Squamous Epith Cells Ur Transition Epith Cell Ur Renal Epithelial Cell Amorphous Sediment Urine Bacteria Hyaline Casts Granular Casts Urine Mucus Micro UA Comment Urine Culture Comments Urine Eosinophils Urine Osmolality Ur Random Creatinine Ur Random Sodium Pleural pH Pleural WBC Pleural Nuc Cells Pleural RBC Pleural Neutrophils Pleural Eosinophils Pleural Lymphocytes Pleural Monocytes Pleural Histocytes Pleural Mesothelial Pleural Total Protein Pleural Amylase Pleural LDH Pleural Glucose Nasal Screen MRSA (PCR) Stl C.difficile Tox PCR St C. diff Tox Epid 027 Vancomycin Trough Random Vancomycin Phenytoin Free Phenytoin LOWELL Screen RPR Blood Type Antibody Screen MTS Gel Crossmatch Blood Bank Comment 12/29/17 12/30/17 12/30/17 23:49 05:05 05:05 WBC 10.2 RBC 2.72 L Hgb 8.2 L Hct 24.5 L MCV 90.3 MCH 30.1 MCHC 33.4 RDW 20.9 H Plt Count 480 H MPV 9.1 Prelim Diff (Auto) Neut % (Auto) 54.6 Lymph % (Auto) 30.9 [place] % (Auto) 13.7 H Eos % (Auto) 0.5 Baso % (Auto) 0.3 Neut # (Auto) 5.5 Lymph # (Auto) 3.1 [place] # (Auto) 1.4 H Eos # (Auto) 0.0 Baso # (Auto) 0.0 CBC Comment WBC Differential . Total Counted Neutrophils % (Manual) Seg Neuts % (Manual) Band Neutrophils % Band Neuts % (Manual) Lymphocytes % Lymphocytes % (Manual) Monocytes % Monocytes % (Manual) Eosinophils % Eosinophils % (Manual) Basophils % Metamyelocytes % (Man) Neutrophils # (Manual) Abs Neuts (Manual) Metamyelocytes Myelocytes Nucleated RBCs Differential Comment Auto diff final Smudge Cells Toxic Granulation Toxic Vacuolation Dohle Bodies Platelet Estimate Platelet Morphology Plt Morphology Comment Basophilic Stippling Spherocytes Tear Drop Cells Ovalocytes Acanthocytes (Spur) RBC Morph Comment ESR Hematology Comments PT 19.8 H INR 2.0 APTT 44.8 H Fibrinogen Puncture Site Patient Temperature HCO3 Base Excess O2 Saturation ABG pH ABG pCO2 ABG pO2 ABG HCO3 ABG O2 Content ABG Base Excess ABG Carboxyhemoglobin ABG Methemoglobin Stepan Test Hemoglobin Carboxyhemoglobin O2 Delivery Device Liter Flow Vent Setting Inspired O2 Critical Value Sodium Potassium Chloride Carbon Dioxide Anion Gap BUN Creatinine Estimated GFR POC Glucose 254 H Random Glucose Hemoglobin A1c Lactic Acid Calcium Prot Corrected Calcium Phosphorus Magnesium Total Bilirubin Direct Bilirubin Indirect Bilirubin AST ALT Alkaline Phosphatase Ammonia Total Creatine Kinase Troponin I C-Reactive Protein B-Natriuretic Peptide Total Protein Albumin Prealbumin Triglycerides Cholesterol LDL Cholesterol HDL Cholesterol Cholesterol/HDL Ratio Thiamine Vitamin B12 Procalcitonin Free T4 TSH 3rd Generation Urine Color Urine Clarity Urine Turbidity Urine pH Ur Specific [place] Urine Protein Urine Glucose (UA) Urine Ketones Urine Occult Blood Urine Nitrate Urine Nitrite Urine Bilirubin Urine Urobilinogen Ur Leukocyte Esterase Urine RBC Urine WBC Urine WBC Clumps Ur Squamous Epith Cells Ur Transition Epith Cell Ur Renal Epithelial Cell Amorphous Sediment Urine Bacteria Hyaline Casts Granular Casts Urine Mucus Micro UA Comment Urine Culture Comments Urine Eosinophils Urine Osmolality Ur Random Creatinine Ur Random Sodium Pleural pH Pleural WBC Pleural Nuc Cells Pleural RBC Pleural Neutrophils Pleural Eosinophils Pleural Lymphocytes Pleural Monocytes Pleural Histocytes Pleural Mesothelial Pleural Total Protein Pleural Amylase Pleural LDH Pleural Glucose Nasal Screen MRSA (PCR) Stl C.difficile Tox PCR St C. diff Tox Epid 027 Vancomycin Trough Random Vancomycin Phenytoin Free Phenytoin LOWELL Screen RPR Blood Type Antibody Screen MTS Gel Crossmatch Blood Bank Comment 12/30/17 12/30/17 12/30/17 05:05 05:54 11:44 WBC RBC Hgb Hct MCV MCH MCHC RDW Plt Count MPV Prelim Diff (Auto) Neut % (Auto) Lymph % (Auto) [place] % (Auto) Eos % (Auto) Baso % (Auto) Neut # (Auto) Lymph # (Auto) [place] # (Auto) Eos # (Auto) Baso # (Auto) CBC Comment WBC Differential Total Counted Neutrophils % (Manual) Seg Neuts % (Manual) Band Neutrophils % Band Neuts % (Manual) Lymphocytes % Lymphocytes % (Manual) Monocytes % Monocytes % (Manual) Eosinophils % Eosinophils % (Manual) Basophils % Metamyelocytes % (Man) Neutrophils # (Manual) Abs Neuts (Manual) Metamyelocytes Myelocytes Nucleated RBCs Differential Comment Smudge Cells Toxic Granulation Toxic Vacuolation Dohle Bodies Platelet Estimate Platelet Morphology Plt Morphology Comment Basophilic Stippling Spherocytes Tear Drop Cells Ovalocytes Acanthocytes (Spur) RBC Morph Comment ESR Hematology Comments PT INR APTT Fibrinogen Puncture Site Patient Temperature HCO3 Base Excess O2 Saturation ABG pH ABG pCO2 ABG pO2 ABG HCO3 ABG O2 Content ABG Base Excess ABG Carboxyhemoglobin ABG Methemoglobin Stepan Test Hemoglobin Carboxyhemoglobin O2 Delivery Device Liter Flow Vent Setting Inspired O2 Critical Value Sodium 132 L Potassium 4.8 Chloride 94 L Carbon Dioxide 25.9 Anion Gap 12 BUN 50 H Creatinine 1.57 H Estimated GFR 43 L POC Glucose 321 H 327 H Random Glucose 272 H Hemoglobin A1c Lactic Acid Calcium 8.1 L Prot Corrected Calcium Phosphorus Magnesium Total Bilirubin Direct Bilirubin Indirect Bilirubin AST ALT Alkaline Phosphatase Ammonia Total Creatine Kinase Troponin I C-Reactive Protein B-Natriuretic Peptide Total Protein Albumin Prealbumin Triglycerides Cholesterol LDL Cholesterol HDL Cholesterol Cholesterol/HDL Ratio Thiamine Vitamin B12 Procalcitonin Free T4 TSH 3rd Generation Urine Color Urine Clarity Urine Turbidity Urine pH Ur Specific [place] Urine Protein Urine Glucose (UA) Urine Ketones Urine Occult Blood Urine Nitrate Urine Nitrite Urine Bilirubin Urine Urobilinogen Ur Leukocyte Esterase Urine RBC Urine WBC Urine WBC Clumps Ur Squamous Epith Cells Ur Transition Epith Cell Ur Renal Epithelial Cell Amorphous Sediment Urine Bacteria Hyaline Casts Granular Casts Urine Mucus Micro UA Comment Urine Culture Comments Urine Eosinophils Urine Osmolality Ur Random Creatinine Ur Random Sodium Pleural pH Pleural WBC Pleural Nuc Cells Pleural RBC Pleural Neutrophils Pleural Eosinophils Pleural Lymphocytes Pleural Monocytes Pleural Histocytes Pleural Mesothelial Pleural Total Protein Pleural Amylase Pleural LDH Pleural Glucose Nasal Screen MRSA (PCR) Stl C.difficile Tox PCR St C. diff Tox Epid 027 Vancomycin Trough Random Vancomycin Phenytoin Free Phenytoin LOWELL Screen RPR Blood Type Antibody Screen MTS Gel Crossmatch Blood Bank Comment 12/30/17 12/30/17 12/31/17 16:53 17:55 01:02 WBC RBC Hgb Hct MCV MCH MCHC RDW Plt Count MPV Prelim Diff (Auto) Neut % (Auto) Lymph % (Auto) [place] % (Auto) Eos % (Auto) Baso % (Auto) Neut # (Auto) Lymph # (Auto) [place] # (Auto) Eos # (Auto) Baso # (Auto) CBC Comment WBC Differential Total Counted Neutrophils % (Manual) Seg Neuts % (Manual) Band Neutrophils % Band Neuts % (Manual) Lymphocytes % Lymphocytes % (Manual) Monocytes % Monocytes % (Manual) Eosinophils % Eosinophils % (Manual) Basophils % Metamyelocytes % (Man) Neutrophils # (Manual) Abs Neuts (Manual) Metamyelocytes Myelocytes Nucleated RBCs Differential Comment Smudge Cells Toxic Granulation Toxic Vacuolation Dohle Bodies Platelet Estimate Platelet Morphology Plt Morphology Comment Basophilic Stippling Spherocytes Tear Drop Cells Ovalocytes Acanthocytes (Spur) RBC Morph Comment ESR Hematology Comments PT INR APTT Fibrinogen Puncture Site Patient Temperature HCO3 Base Excess O2 Saturation ABG pH ABG pCO2 ABG pO2 ABG HCO3 ABG O2 Content ABG Base Excess ABG Carboxyhemoglobin ABG Methemoglobin Stepan Test Hemoglobin Carboxyhemoglobin O2 Delivery Device Liter Flow Vent Setting Inspired O2 Critical Value Sodium 133 L Potassium 5.2 H Chloride 97 L Carbon Dioxide 27.8 Anion Gap 8 BUN 52 H Creatinine 1.52 H Estimated GFR 45 L POC Glucose 284 H 289 H Random Glucose 267 H Hemoglobin A1c Lactic Acid Calcium 7.6 L Prot Corrected Calcium Phosphorus Magnesium Total Bilirubin Direct Bilirubin Indirect Bilirubin AST ALT Alkaline Phosphatase Ammonia Total Creatine Kinase Troponin I C-Reactive Protein B-Natriuretic Peptide Total Protein Albumin Prealbumin Triglycerides Cholesterol LDL Cholesterol HDL Cholesterol Cholesterol/HDL Ratio Thiamine Vitamin B12 Procalcitonin Free T4 TSH 3rd Generation Urine Color Urine Clarity Urine Turbidity Urine pH Ur Specific [place] Urine Protein Urine Glucose (UA) Urine Ketones Urine Occult Blood Urine Nitrate Urine Nitrite Urine Bilirubin Urine Urobilinogen Ur Leukocyte Esterase Urine RBC Urine WBC Urine WBC Clumps Ur Squamous Epith Cells Ur Transition Epith Cell Ur Renal Epithelial Cell Amorphous Sediment Urine Bacteria Hyaline Casts Granular Casts Urine Mucus Micro UA Comment Urine Culture Comments Urine Eosinophils Urine Osmolality Ur Random Creatinine Ur Random Sodium Pleural pH Pleural WBC Pleural Nuc Cells Pleural RBC Pleural Neutrophils Pleural Eosinophils Pleural Lymphocytes Pleural Monocytes Pleural Histocytes Pleural Mesothelial Pleural Total Protein Pleural Amylase Pleural LDH Pleural Glucose Nasal Screen MRSA (PCR) Stl C.difficile Tox PCR St C. diff Tox Epid 027 Vancomycin Trough Random Vancomycin Phenytoin Free Phenytoin LOWELL Screen RPR Blood Type Antibody Screen MTS Gel Crossmatch Blood Bank Comment 12/31/17 12/31/17 12/31/17 05:52 07:37 07:43 WBC RBC Hgb Hct MCV MCH MCHC RDW Plt Count MPV Prelim Diff (Auto) Neut % (Auto) Lymph % (Auto) [place] % (Auto) Eos % (Auto) Baso % (Auto) Neut # (Auto) Lymph # (Auto) [place] # (Auto) Eos # (Auto) Baso # (Auto) CBC Comment WBC Differential Total Counted Neutrophils % (Manual) Seg Neuts % (Manual) Band Neutrophils % Band Neuts % (Manual) Lymphocytes % Lymphocytes % (Manual) Monocytes % Monocytes % (Manual) Eosinophils % Eosinophils % (Manual) Basophils % Metamyelocytes % (Man) Neutrophils # (Manual) Abs Neuts (Manual) Metamyelocytes Myelocytes Nucleated RBCs Differential Comment Smudge Cells Toxic Granulation Toxic Vacuolation Dohle Bodies Platelet Estimate Platelet Morphology Plt Morphology Comment Basophilic Stippling Spherocytes Tear Drop Cells Ovalocytes Acanthocytes (Spur) RBC Morph Comment ESR Hematology Comments PT INR APTT Fibrinogen Puncture Site Right brachial Patient Temperature 98.6 HCO3 Base Excess O2 Saturation 84 L* ABG pH 7.30 L ABG pCO2 60 H* ABG pO2 61 ABG HCO3 28 H ABG O2 Content 10.9 L ABG Base Excess 2.5 H ABG Carboxyhemoglobin ABG Methemoglobin 0.6 Ste[place] Test Hemoglobin 9.1 L Carboxyhemoglobin 1.7 O2 Delivery Device T-piece Liter Flow Vent Setting Inspired O2 98 Critical Value Yes Sodium Potassium Chloride Carbon Dioxide Anion Gap BUN Creatinine Estimated GFR POC Glucose 251 H 299 H Random Glucose Hemoglobin A1c Lactic Acid Calcium Prot Corrected Calcium Phosphorus Magnesium Total Bilirubin Direct Bilirubin Indirect Bilirubin AST ALT Alkaline Phosphatase Ammonia Total Creatine Kinase Troponin I C-Reactive Protein B-Natriuretic Peptide Total Protein Albumin Prealbumin Triglycerides Cholesterol LDL Cholesterol HDL Cholesterol Cholesterol/HDL Ratio Thiamine Vitamin B12 Procalcitonin Free T4 TSH 3rd Generation Urine Color Urine Clarity Urine Turbidity Urine pH Ur Specific [place] Urine Protein Urine Glucose (UA) Urine Ketones Urine Occult Blood Urine Nitrate Urine Nitrite Urine Bilirubin Urine Urobilinogen Ur Leukocyte Esterase Urine RBC Urine WBC Urine WBC Clumps Ur Squamous Epith Cells Ur Transition Epith Cell Ur Renal Epithelial Cell Amorphous Sediment Urine Bacteria Hyaline Casts Granular Casts Urine Mucus Micro UA Comment Urine Culture Comments Urine Eosinophils Urine Osmolality Ur Random Creatinine Ur Random Sodium Pleural pH Pleural WBC Pleural Nuc Cells Pleural RBC Pleural Neutrophils Pleural Eosinophils Pleural Lymphocytes Pleural Monocytes Pleural Histocytes Pleural Mesothelial Pleural Total Protein Pleural Amylase Pleural LDH Pleural Glucose Nasal Screen MRSA (PCR) Stl C.difficile Tox PCR St C. diff Tox Epid 027 Vancomycin Trough Random Vancomycin Phenytoin Free Phenytoin LOWELL Screen RPR Blood Type Antibody Screen MTS Gel Crossmatch Blood Bank Comment 12/31/17 12/31/17 12/31/17 10:51 10:51 10:51 WBC 12.2 H RBC 2.72 L Hgb 7.8 L Hct 24.3 L MCV 89.3 MCH 28.6 MCHC 32.0 RDW 20.9 H Plt Count 492 H MPV 8.4 Prelim Diff (Auto) Neut % (Auto) 67.1 Lymph % (Auto) 19.9 [place] % (Auto) 12.4 H Eos % (Auto) 0.1 Baso % (Auto) 0.5 Neut # (Auto) 8.2 H Lymph # (Auto) 2.4 [place] # (Auto) 1.5 H Eos # (Auto) 0.0 Baso # (Auto) 0.1 CBC Comment WBC Differential . Total Counted Neutrophils % (Manual) Seg Neuts % (Manual) Band Neutrophils % Band Neuts % (Manual) Lymphocytes % Lymphocytes % (Manual) Monocytes % Monocytes % (Manual) Eosinophils % Eosinophils % (Manual) Basophils % Metamyelocytes % (Man) Neutrophils # (Manual) Abs Neuts (Manual) Metamyelocytes Myelocytes Nucleated RBCs Differential Comment Auto diff final Smudge Cells Toxic Granulation Toxic Vacuolation Dohle Bodies Platelet Estimate Platelet Morphology Plt Morphology Comment Basophilic Stippling Spherocytes Tear Drop Cells Ovalocytes Acanthocytes (Spur) RBC Morph Comment ESR Hematology Comments PT INR APTT Fibrinogen Puncture Site Patient Temperature HCO3 Base Excess O2 Saturation ABG pH ABG pCO2 ABG pO2 ABG HCO3 ABG O2 Content ABG Base Excess ABG Carboxyhemoglobin ABG Methemoglobin Stepan Test Hemoglobin Carboxyhemoglobin O2 Delivery Device Liter Flow Vent Setting Inspired O2 Critical Value Sodium 135 L Potassium 5.2 H Chloride 98 Carbon Dioxide 27.8 Anion Gap 9 BUN 53 H Creatinine 1.58 H Estimated GFR 43 L POC Glucose Random Glucose 211 H Hemoglobin A1c Lactic Acid 1.5 Calcium 7.6 L Prot Corrected Calcium Phosphorus Magnesium Total Bilirubin 0.2 Direct Bilirubin Indirect Bilirubin AST 58 H ALT 53 Alkaline Phosphatase 168 H Ammonia Total Creatine Kinase Troponin I 0.03 C-Reactive Protein B-Natriuretic Peptide Total Protein 6.7 Albumin 1.2 L Prealbumin Triglycerides Cholesterol LDL Cholesterol HDL Cholesterol Cholesterol/HDL Ratio Thiamine Vitamin B12 Procalcitonin Free T4 TSH 3rd Generation Urine Color Urine Clarity Urine Turbidity Urine pH Ur Specific [place] Urine Protein Urine Glucose (UA) Urine Ketones Urine Occult Blood Urine Nitrate Urine Nitrite Urine Bilirubin Urine Urobilinogen Ur Leukocyte Esterase Urine RBC Urine WBC Urine WBC Clumps Ur Squamous Epith Cells Ur Transition Epith Cell Ur Renal Epithelial Cell Amorphous Sediment Urine Bacteria Hyaline Casts Granular Casts Urine Mucus Micro UA Comment Urine Culture Comments Urine Eosinophils Urine Osmolality Ur Random Creatinine Ur Random Sodium Pleural pH Pleural WBC Pleural Nuc Cells Pleural RBC Pleural Neutrophils Pleural Eosinophils Pleural Lymphocytes Pleural Monocytes Pleural Histocytes Pleural Mesothelial Pleural Total Protein Pleural Amylase Pleural LDH Pleural Glucose Nasal Screen MRSA (PCR) Stl C.difficile Tox PCR St C. diff Tox Epid 027 Vancomycin Trough Random Vancomycin Phenytoin Free Phenytoin LOWELL Screen RPR Blood Type Antibody Screen MTS Gel Crossmatch Blood Bank Comment 12/31/17 12/31/17 12/31/17 10:51 11:47 12:00 WBC RBC Hgb Hct MCV MCH MCHC RDW Plt Count MPV Prelim Diff (Auto) Neut % (Auto) Lymph % (Auto) [place] % (Auto) Eos % (Auto) Baso % (Auto) Neut # (Auto) Lymph # (Auto) [place] # (Auto) Eos # (Auto) Baso # (Auto) CBC Comment WBC Differential Total Counted Neutrophils % (Manual) Seg Neuts % (Manual) Band Neutrophils % Band Neuts % (Manual) Lymphocytes % Lymphocytes % (Manual) Monocytes % Monocytes % (Manual) Eosinophils % Eosinophils % (Manual) Basophils % Metamyelocytes % (Man) Neutrophils # (Manual) Abs Neuts (Manual) Metamyelocytes Myelocytes Nucleated RBCs Differential Comment Smudge Cells Toxic Granulation Toxic Vacuolation Dohle Bodies Platelet Estimate Platelet Morphology Plt Morphology Comment Basophilic Stippling Spherocytes Tear Drop Cells Ovalocytes Acanthocytes (Spur) RBC Morph Comment ESR Hematology Comments PT 23.0 H INR 2.3 APTT Fibrinogen Puncture Site Left brachial Patient Temperature 98.6 HCO3 Base Excess O2 Saturation 95 ABG pH 7.51 H* ABG pCO2 34 L ABG pO2 86 ABG HCO3 27 H ABG O2 Content 10.6 L ABG Base Excess 3.9 H ABG Carboxyhemoglobin ABG Methemoglobin 1.2 Stepan Test Present Hemoglobin 7.9 L Carboxyhemoglobin 1.8 O2 Delivery Device Ventilator Liter Flow Vent Setting Prcv16/500/1.0/+5 Inspired O2 40 Critical Value Yes Sodium Potassium Chloride Carbon Dioxide Anion Gap BUN Creatinine Estimated GFR POC Glucose Random Glucose Hemoglobin A1c Lactic Acid Calcium Prot Corrected Calcium Phosphorus Magnesium Total Bilirubin Direct Bilirubin Indirect Bilirubin AST ALT Alkaline Phosphatase Ammonia Total Creatine Kinase Troponin I Cancelled C-Reactive Protein B-Natriuretic Peptide Total Protein Albumin Prealbumin Triglycerides Cholesterol LDL Cholesterol HDL Cholesterol Cholesterol/HDL Ratio Thiamine Vitamin B12 Procalcitonin Free T4 TSH 3rd Generation Urine Color Urine Clarity Urine Turbidity Urine pH Ur Specific [place] Urine Protein Urine Glucose (UA) Urine Ketones Urine Occult Blood Urine Nitrate Urine Nitrite Urine Bilirubin Urine Urobilinogen Ur Leukocyte Esterase Urine RBC Urine WBC Urine WBC Clumps Ur Squamous Epith Cells Ur Transition Epith Cell Ur Renal Epithelial Cell Amorphous Sediment Urine Bacteria Hyaline Casts Granular Casts Urine Mucus Micro UA Comment Urine Culture Comments Urine Eosinophils Urine Osmolality Ur Random Creatinine Ur Random Sodium Pleural pH Pleural WBC Pleural Nuc Cells Pleural RBC Pleural Neutrophils Pleural Eosinophils Pleural Lymphocytes Pleural Monocytes Pleural Histocytes Pleural Mesothelial Pleural Total Protein Pleural Amylase Pleural LDH Pleural Glucose Nasal Screen MRSA (PCR) Stl C.difficile Tox PCR St C. diff Tox Epid 027 Vancomycin Trough Random Vancomycin Phenytoin Free Phenytoin LOWELL Screen RPR Blood Type Antibody Screen MTS Gel Crossmatch Blood Bank Comment 12/31/17 12/31/17 01/01/18 17:07 22:58 01:04 WBC RBC Hgb Hct MCV MCH MCHC RDW Plt Count MPV Prelim Diff (Auto) Neut % (Auto) Lymph % (Auto) [place] % (Auto) Eos % (Auto) Baso % (Auto) Neut # (Auto) Lymph # (Auto) [place] # (Auto) Eos # (Auto) Baso # (Auto) CBC Comment WBC Differential Total Counted Neutrophils % (Manual) Seg Neuts % (Manual) Band Neutrophils % Band Neuts % (Manual) Lymphocytes % Lymphocytes % (Manual) Monocytes % Monocytes % (Manual) Eosinophils % Eosinophils % (Manual) Basophils % Metamyelocytes % (Man) Neutrophils # (Manual) Abs Neuts (Manual) Metamyelocytes Myelocytes Nucleated RBCs Differential Comment Smudge Cells Toxic Granulation Toxic Vacuolation Dohle Bodies Platelet Estimate Platelet Morphology Plt Morphology Comment Basophilic Stippling Spherocytes Tear Drop Cells Ovalocytes Acanthocytes (Spur) RBC Morph Comment ESR Hematology Comments PT INR APTT Fibrinogen Puncture Site Patient Temperature HCO3 Base Excess O2 Saturation ABG pH ABG pCO2 ABG pO2 ABG HCO3 ABG O2 Content ABG Base Excess ABG Carboxyhemoglobin ABG Methemoglobin Stepan Test Hemoglobin Carboxyhemoglobin O2 Delivery Device Liter Flow Vent Setting Inspired O2 Critical Value Sodium Potassium Chloride Carbon Dioxide Anion Gap BUN Creatinine Estimated GFR POC Glucose 199 H 161 H Random Glucose Hemoglobin A1c Lactic Acid Calcium Prot Corrected Calcium Phosphorus Magnesium Total Bilirubin Direct Bilirubin Indirect Bilirubin AST ALT Alkaline Phosphatase Ammonia Total Creatine Kinase Troponin I C-Reactive Protein B-Natriuretic Peptide Total Protein Albumin Prealbumin Triglycerides Cholesterol LDL Cholesterol HDL Cholesterol Cholesterol/HDL Ratio Thiamine Vitamin B12 Procalcitonin Free T4 TSH 3rd Generation Urine Color Yellow Urine Clarity Cloudy H Urine Turbidity Urine pH 7.0 Ur Specific [place] 1.009 Urine Protein 30 H Urine Glucose (UA) Negative Urine Ketones Negative Urine Occult Blood Small H Urine Nitrate Negative Urine Nitrite Urine Bilirubin Negative Urine Urobilinogen Less than 2 Ur Leukocyte Esterase Large H Urine RBC 1 Urine WBC Urine WBC Clumps Many H Ur Squamous Epith Cells Ur Transition Epith Cell Ur Renal Epithelial Cell Amorphous Sediment Urine Bacteria Few H Hyaline Casts Granular Casts Urine Mucus Micro UA Comment Cath-culture ind Urine Culture Comments Cath-cult indicated Urine Eosinophils Urine Osmolality Ur Random Creatinine Ur Random Sodium Pleural pH Pleural WBC Pleural Nuc Cells Pleural RBC Pleural Neutrophils Pleural Eosinophils Pleural Lymphocytes Pleural Monocytes Pleural Histocytes Pleural Mesothelial Pleural Total Protein Pleural Amylase Pleural LDH Pleural Glucose Nasal Screen MRSA (PCR) Stl C.difficile Tox PCR St C. diff Tox Epid 027 Vancomycin Trough Random Vancomycin Phenytoin Free Phenytoin LOWELL Screen RPR Blood Type Antibody Screen MTS Gel Crossmatch Blood Bank Comment 01/01/18 01/01/18 01/01/18 05:24 05:24 05:24 WBC 10.4 RBC 2.57 L Hgb 7.6 L Hct 22.8 L MCV 88.7 MCH 29.7 MCHC 33.5 RDW 21.1 H Plt Count 438 MPV 8.3 Prelim Diff (Auto) Neut % (Auto) 49.0 Lymph % (Auto) 38.7 [place] % (Auto) 11.6 H Eos % (Auto) 0.4 Baso % (Auto) 0.3 Neut # (Auto) 5.1 Lymph # (Auto) 4.0 [place] # (Auto) 1.2 H Eos # (Auto) 0.0 Baso # (Auto) 0.0 CBC Comment WBC Differential . Total Counted Neutrophils % (Manual) Seg Neuts % (Manual) Band Neutrophils % Band Neuts % (Manual) Lymphocytes % Lymphocytes % (Manual) Monocytes % Monocytes % (Manual) Eosinophils % Eosinophils % (Manual) Basophils % Metamyelocytes % (Man) Neutrophils # (Manual) Abs Neuts (Manual) Metamyelocytes Myelocytes Nucleated RBCs Differential Comment Auto diff final Smudge Cells Toxic Granulation Toxic Vacuolation Dohle Bodies Platelet Estimate Platelet Morphology Plt Morphology Comment Basophilic Stippling Spherocytes Tear Drop Cells Ovalocytes Acanthocytes (Spur) RBC Morph Comment ESR Hematology Comments PT 33.0 H D INR 3.3 APTT Fibrinogen Puncture Site Patient Temperature HCO3 Base Excess O2 Saturation ABG pH ABG pCO2 ABG pO2 ABG HCO3 ABG O2 Content ABG Base Excess ABG Carboxyhemoglobin ABG Methemoglobin Stepan Test Hemoglobin Carboxyhemoglobin O2 Delivery Device Liter Flow Vent Setting Inspired O2 Critical Value Sodium 137 Potassium 4.2 D Chloride 100 Carbon Dioxide 26.6 Anion Gap 10 BUN 54 H Creatinine 1.63 H Estimated GFR 41 L POC Glucose Random Glucose 111 H D Hemoglobin A1c Lactic Acid Calcium 7.7 L Prot Corrected Calcium Phosphorus Magnesium Total Bilirubin 0.3 Direct Bilirubin Indirect Bilirubin AST 43 H ALT 41 Alkaline Phosphatase 138 H Ammonia Total Creatine Kinase Troponin I C-Reactive Protein B-Natriuretic Peptide Total Protein 6.4 Albumin 1.1 L Prealbumin Triglycerides Cholesterol LDL Cholesterol HDL Cholesterol Cholesterol/HDL Ratio Thiamine Vitamin B12 Procalcitonin Free T4 TSH 3rd Generation Urine Color Urine Clarity Urine Turbidity Urine pH Ur Specific [place] Urine Protein Urine Glucose (UA) Urine Ketones Urine Occult Blood Urine Nitrate Urine Nitrite Urine Bilirubin Urine Urobilinogen Ur Leukocyte Esterase Urine RBC Urine WBC Urine WBC Clumps Ur Squamous Epith Cells Ur Transition Epith Cell Ur Renal Epithelial Cell Amorphous Sediment Urine Bacteria Hyaline Casts Granular Casts Urine Mucus Micro UA Comment Urine Culture Comments Urine Eosinophils Urine Osmolality Ur Random Creatinine Ur Random Sodium Pleural pH Pleural WBC Pleural Nuc Cells Pleural RBC Pleural Neutrophils Pleural Eosinophils Pleural Lymphocytes Pleural Monocytes Pleural Histocytes Pleural Mesothelial Pleural Total Protein Pleural Amylase Pleural LDH Pleural Glucose Nasal Screen MRSA (PCR) Stl C.difficile Tox PCR St C. diff Tox Epid 027 Vancomycin Trough Random Vancomycin Phenytoin Free Phenytoin LOWELL Screen RPR Blood Type Antibody Screen MTS Gel Crossmatch Blood Bank Comment 01/01/18 01/01/18 01/01/18 06:01 14:35 18:03 WBC RBC Hgb Hct MCV MCH MCHC RDW Plt Count MPV Prelim Diff (Auto) Neut % (Auto) Lymph % (Auto) [place] % (Auto) Eos % (Auto) Baso % (Auto) Neut # (Auto) Lymph # (Auto) [place] # (Auto) Eos # (Auto) Baso # (Auto) CBC Comment WBC Differential Total Counted Neutrophils % (Manual) Seg Neuts % (Manual) Band Neutrophils % Band Neuts % (Manual) Lymphocytes % Lymphocytes % (Manual) Monocytes % Monocytes % (Manual) Eosinophils % Eosinophils % (Manual) Basophils % Metamyelocytes % (Man) Neutrophils # (Manual) Abs Neuts (Manual) Metamyelocytes Myelocytes Nucleated RBCs Differential Comment Smudge Cells Toxic Granulation Toxic Vacuolation Dohle Bodies Platelet Estimate Platelet Morphology Plt Morphology Comment Basophilic Stippling Spherocytes Tear Drop Cells Ovalocytes Acanthocytes (Spur) RBC Morph Comment ESR Hematology Comments PT INR APTT Fibrinogen Puncture Site Patient Temperature HCO3 Base Excess O2 Saturation ABG pH ABG pCO2 ABG pO2 ABG HCO3 ABG O2 Content ABG Base Excess ABG Carboxyhemoglobin ABG Methemoglobin Stepan Test Hemoglobin Carboxyhemoglobin O2 Delivery Device Liter Flow Vent Setting Inspired O2 Critical Value Sodium Potassium Chloride Carbon Dioxide Anion Gap BUN Creatinine Estimated GFR POC Glucose 138 H 137 H 159 H Random Glucose Hemoglobin A1c Lactic Acid Calcium Prot Corrected Calcium Phosphorus Magnesium Total Bilirubin Direct Bilirubin Indirect Bilirubin AST ALT Alkaline Phosphatase Ammonia Total Creatine Kinase Troponin I C-Reactive Protein B-Natriuretic Peptide Total Protein Albumin Prealbumin Triglycerides Cholesterol LDL Cholesterol HDL Cholesterol Cholesterol/HDL Ratio Thiamine Vitamin B12 Procalcitonin Free T4 TSH 3rd Generation Urine Color Urine Clarity Urine Turbidity Urine pH Ur Specific [place] Urine Protein Urine Glucose (UA) Urine Ketones Urine Occult Blood Urine Nitrate Urine Nitrite Urine Bilirubin Urine Urobilinogen Ur Leukocyte Esterase Urine RBC Urine WBC Urine WBC Clumps Ur Squamous Epith Cells Ur Transition Epith Cell Ur Renal Epithelial Cell Amorphous Sediment Urine Bacteria Hyaline Casts Granular Casts Urine Mucus Micro UA Comment Urine Culture Comments Urine Eosinophils Urine Osmolality Ur Random Creatinine Ur Random Sodium Pleural pH Pleural WBC Pleural Nuc Cells Pleural RBC Pleural Neutrophils Pleural Eosinophils Pleural Lymphocytes Pleural Monocytes Pleural Histocytes Pleural Mesothelial Pleural Total Protein Pleural Amylase Pleural LDH Pleural Glucose Nasal Screen MRSA (PCR) Stl C.difficile Tox PCR St C. diff Tox Epid 027 Vancomycin Trough Random Vancomycin Phenytoin Free Phenytoin LOWELL Screen RPR Blood Type Antibody Screen MTS Gel Crossmatch Blood Bank Comment 01/01/18 01/02/18 01/02/18 23:21 05:21 05:21 WBC 10.8 RBC 2.69 L Hgb 7.9 L Hct 24.0 L MCV 89.1 MCH 29.3 MCHC 32.9 RDW 21.1 H Plt Count 480 H MPV 8.0 Prelim Diff (Auto) Neut % (Auto) 58.4 Lymph % (Auto) 30.9 [place] % (Auto) 8.9 H Eos % (Auto) 1.4 Baso % (Auto) 0.4 Neut # (Auto) 6.3 Lymph # (Auto) 3.3 [place] # (Auto) 1.0 H Eos # (Auto) 0.1 Baso # (Auto) 0.0 CBC Comment WBC Differential . Total Counted Neutrophils % (Manual) Seg Neuts % (Manual) Band Neutrophils % Band Neuts % (Manual) Lymphocytes % Lymphocytes % (Manual) Monocytes % Monocytes % (Manual) Eosinophils % Eosinophils % (Manual) Basophils % Metamyelocytes % (Man) Neutrophils # (Manual) Abs Neuts (Manual) Metamyelocytes Myelocytes Nucleated RBCs Differential Comment Auto diff final Smudge Cells Toxic Granulation Toxic Vacuolation Dohle Bodies Platelet Estimate Platelet Morphology Plt Morphology Comment Basophilic Stippling Spherocytes Tear Drop Cells Ovalocytes Acanthocytes (Spur) RBC Morph Comment ESR Hematology Comments PT 30.5 H INR 3.0 APTT Fibrinogen Puncture Site Patient Temperature HCO3 Base Excess O2 Saturation ABG pH ABG pCO2 ABG pO2 ABG HCO3 ABG O2 Content ABG Base Excess ABG Carboxyhemoglobin ABG Methemoglobin Stepan Test Hemoglobin Carboxyhemoglobin O2 Delivery Device Liter Flow Vent Setting Inspired O2 Critical Value Sodium Potassium Chloride Carbon Dioxide Anion Gap BUN Creatinine Estimated GFR POC Glucose 146 H Random Glucose Hemoglobin A1c Lactic Acid Calcium Prot Corrected Calcium Phosphorus Magnesium Total Bilirubin Direct Bilirubin Indirect Bilirubin AST ALT Alkaline Phosphatase Ammonia Total Creatine Kinase Troponin I C-Reactive Protein B-Natriuretic Peptide Total Protein Albumin Prealbumin Triglycerides Cholesterol LDL Cholesterol HDL Cholesterol Cholesterol/HDL Ratio Thiamine Vitamin B12 Procalcitonin Free T4 TSH 3rd Generation Urine Color Urine Clarity Urine Turbidity Urine pH Ur Specific [place] Urine Protein Urine Glucose (UA) Urine Ketones Urine Occult Blood Urine Nitrate Urine Nitrite Urine Bilirubin Urine Urobilinogen Ur Leukocyte Esterase Urine RBC Urine WBC Urine WBC Clumps Ur Squamous Epith Cells Ur Transition Epith Cell Ur Renal Epithelial Cell Amorphous Sediment Urine Bacteria Hyaline Casts Granular Casts Urine Mucus Micro UA Comment Urine Culture Comments Urine Eosinophils Urine Osmolality Ur Random Creatinine Ur Random Sodium Pleural pH Pleural WBC Pleural Nuc Cells Pleural RBC Pleural Neutrophils Pleural Eosinophils Pleural Lymphocytes Pleural Monocytes Pleural Histocytes Pleural Mesothelial Pleural Total Protein Pleural Amylase Pleural LDH Pleural Glucose Nasal Screen MRSA (PCR) Stl C.difficile Tox PCR St C. diff Tox Epid 027 Vancomycin Trough Random Vancomycin Phenytoin Free Phenytoin LOWELL Screen RPR Blood Type Antibody Screen MTS Gel Crossmatch Blood Bank Comment 01/02/18 01/02/18 01/02/18 05:21 05:21 05:21 WBC RBC Hgb Hct MCV MCH MCHC RDW Plt Count MPV Prelim Diff (Auto) Neut % (Auto) Lymph % (Auto) [place] % (Auto) Eos % (Auto) Baso % (Auto) Neut # (Auto) Lymph # (Auto) [place] # (Auto) Eos # (Auto) Baso # (Auto) CBC Comment WBC Differential Total Counted Neutrophils % (Manual) Seg Neuts % (Manual) Band Neutrophils % Band Neuts % (Manual) Lymphocytes % Lymphocytes % (Manual) Monocytes % Monocytes % (Manual) Eosinophils % Eosinophils % (Manual) Basophils % Metamyelocytes % (Man) Neutrophils # (Manual) Abs Neuts (Manual) Metamyelocytes Myelocytes Nucleated RBCs Differential Comment Smudge Cells Toxic Granulation Toxic Vacuolation Dohle Bodies Platelet Estimate Platelet Morphology Plt Morphology Comment Basophilic Stippling Spherocytes Tear Drop Cells Ovalocytes Acanthocytes (Spur) RBC Morph Comment ESR Greater than 140 H Hematology Comments PT INR APTT Fibrinogen Puncture Site Patient Temperature HCO3 Base Excess O2 Saturation ABG pH ABG pCO2 ABG pO2 ABG HCO3 ABG O2 Content ABG Base Excess ABG Carboxyhemoglobin ABG Methemoglobin Stepan Test Hemoglobin Carboxyhemoglobin O2 Delivery Device Liter Flow Vent Setting Inspired O2 Critical Value Sodium 139 Potassium 4.1 Chloride 103 Carbon Dioxide 25.4 Anion Gap 11 BUN 51 H Creatinine 1.59 H Estimated GFR 42 L POC Glucose Random Glucose 120 H Hemoglobin A1c Lactic Acid Calcium 7.5 L Prot Corrected Calcium Phosphorus Magnesium Total Bilirubin 0.3 Direct Bilirubin Indirect Bilirubin AST 51 H ALT 45 Alkaline Phosphatase 137 H Ammonia Total Creatine Kinase Troponin I C-Reactive Protein 13.80 H B-Natriuretic Peptide Total Protein 6.3 L Albumin 1.1 L Prealbumin Triglycerides Cholesterol LDL Cholesterol HDL Cholesterol Cholesterol/HDL Ratio Thiamine Vitamin B12 Procalcitonin Free T4 TSH 3rd Generation Urine Color Urine Clarity Urine Turbidity Urine pH Ur Specific [place] Urine Protein Urine Glucose (UA) Urine Ketones Urine Occult Blood Urine Nitrate Urine Nitrite Urine Bilirubin Urine Urobilinogen Ur Leukocyte Esterase Urine RBC Urine WBC Urine WBC Clumps Ur Squamous Epith Cells Ur Transition Epith Cell Ur Renal Epithelial Cell Amorphous Sediment Urine Bacteria Hyaline Casts Granular Casts Urine Mucus Micro UA Comment Urine Culture Comments Urine Eosinophils Urine Osmolality Ur Random Creatinine Ur Random Sodium Pleural pH Pleural WBC Pleural Nuc Cells Pleural RBC Pleural Neutrophils Pleural Eosinophils Pleural Lymphocytes Pleural Monocytes Pleural Histocytes Pleural Mesothelial Pleural Total Protein Pleural Amylase Pleural LDH Pleural Glucose Nasal Screen MRSA (PCR) Stl C.difficile Tox PCR St C. diff Tox Epid 027 Vancomycin Trough Random Vancomycin Phenytoin Free Phenytoin LOWELL Screen RPR Blood Type Antibody Screen MTS Gel Crossmatch Blood Bank Comment 01/02/18 01/02/18 01/03/18 12:55 17:34 00:59 WBC RBC Hgb Hct MCV MCH MCHC RDW Plt Count MPV Prelim Diff (Auto) Neut % (Auto) Lymph % (Auto) [place] % (Auto) Eos % (Auto) Baso % (Auto) Neut # (Auto) Lymph # (Auto) [place] # (Auto) Eos # (Auto) Baso # (Auto) CBC Comment WBC Differential Total Counted Neutrophils % (Manual) Seg Neuts % (Manual) Band Neutrophils % Band Neuts % (Manual) Lymphocytes % Lymphocytes % (Manual) Monocytes % Monocytes % (Manual) Eosinophils % Eosinophils % (Manual) Basophils % Metamyelocytes % (Man) Neutrophils # (Manual) Abs Neuts (Manual) Metamyelocytes Myelocytes Nucleated RBCs Differential Comment Smudge Cells Toxic Granulation Toxic Vacuolation Dohle Bodies Platelet Estimate Platelet Morphology Plt Morphology Comment Basophilic Stippling Spherocytes Tear Drop Cells Ovalocytes Acanthocytes (Spur) RBC Morph Comment ESR Hematology Comments PT INR APTT Fibrinogen Puncture Site Patient Temperature HCO3 Base Excess O2 Saturation ABG pH ABG pCO2 ABG pO2 ABG HCO3 ABG O2 Content ABG Base Excess ABG Carboxyhemoglobin ABG Methemoglobin Stepan Test Hemoglobin Carboxyhemoglobin O2 Delivery Device Liter Flow Vent Setting Inspired O2 Critical Value Sodium Potassium Chloride Carbon Dioxide Anion Gap BUN Creatinine Estimated GFR POC Glucose 175 H 201 H 199 H Random Glucose Hemoglobin A1c Lactic Acid Calcium Prot Corrected Calcium Phosphorus Magnesium Total Bilirubin Direct Bilirubin Indirect Bilirubin AST ALT Alkaline Phosphatase Ammonia Total Creatine Kinase Troponin I C-Reactive Protein B-Natriuretic Peptide Total Protein Albumin Prealbumin Triglycerides Cholesterol LDL Cholesterol HDL Cholesterol Cholesterol/HDL Ratio Thiamine Vitamin B12 Procalcitonin Free T4 TSH 3rd Generation Urine Color Urine Clarity Urine Turbidity Urine pH Ur Specific [place] Urine Protein Urine Glucose (UA) Urine Ketones Urine Occult Blood Urine Nitrate Urine Nitrite Urine Bilirubin Urine Urobilinogen Ur Leukocyte Esterase Urine RBC Urine WBC Urine WBC Clumps Ur Squamous Epith Cells Ur Transition Epith Cell Ur Renal Epithelial Cell Amorphous Sediment Urine Bacteria Hyaline Casts Granular Casts Urine Mucus Micro UA Comment Urine Culture Comments Urine Eosinophils Urine Osmolality Ur Random Creatinine Ur Random Sodium Pleural pH Pleural WBC Pleural Nuc Cells Pleural RBC Pleural Neutrophils Pleural Eosinophils Pleural Lymphocytes Pleural Monocytes Pleural Histocytes Pleural Mesothelial Pleural Total Protein Pleural Amylase Pleural LDH Pleural Glucose Nasal Screen MRSA (PCR) Stl C.difficile Tox PCR St C. diff Tox Epid 027 Vancomycin Trough Random Vancomycin Phenytoin Free Phenytoin LOWELL Screen RPR Blood Type Antibody Screen MTS Gel Crossmatch Blood Bank Comment 01/03/18 01/03/18 01/03/18 05:20 05:49 06:00 WBC 12.2 H RBC 2.78 L Hgb 8.1 L Hct 25.0 L MCV 89.9 MCH 29.0 MCHC 32.3 RDW 21.8 H Plt Count 511 H MPV 8.2 Prelim Diff (Auto) Neut % (Auto) 52.4 Lymph % (Auto) 36.3 [place] % (Auto) 9.9 H Eos % (Auto) 1.1 Baso % (Auto) 0.3 Neut # (Auto) 6.4 Lymph # (Auto) 4.4 [place] # (Auto) 1.2 H Eos # (Auto) 0.1 Baso # (Auto) 0.0 CBC Comment WBC Differential . Total Counted Neutrophils % (Manual) Seg Neuts % (Manual) Band Neutrophils % Band Neuts % (Manual) Lymphocytes % Lymphocytes % (Manual) Monocytes % Monocytes % (Manual) Eosinophils % Eosinophils % (Manual) Basophils % Metamyelocytes % (Man) Neutrophils # (Manual) Abs Neuts (Manual) Metamyelocytes Myelocytes Nucleated RBCs Differential Comment Auto diff final Smudge Cells Toxic Granulation Toxic Vacuolation Dohle Bodies Platelet Estimate Platelet Morphology Plt Morphology Comment Basophilic Stippling Spherocytes Tear Drop Cells Ovalocytes Acanthocytes (Spur) RBC Morph Comment ESR Hematology Comments PT INR APTT Fibrinogen Puncture Site Patient Temperature HCO3 Base Excess O2 Saturation ABG pH ABG pCO2 ABG pO2 ABG HCO3 ABG O2 Content ABG Base Excess ABG Carboxyhemoglobin ABG Methemoglobin Stepan Test Hemoglobin Carboxyhemoglobin O2 Delivery Device Liter Flow Vent Setting Inspired O2 Critical Value Sodium 140 Potassium 4.4 Chloride 104 Carbon Dioxide 25.7 Anion Gap 10 BUN 44 H Creatinine 1.57 H Estimated GFR 43 L POC Glucose 222 H Random Glucose 194 H Hemoglobin A1c Lactic Acid Calcium 7.7 L Prot Corrected Calcium Phosphorus Magnesium Total Bilirubin 0.3 Direct Bilirubin Indirect Bilirubin AST 39 H ALT 41 Alkaline Phosphatase 145 H Ammonia Total Creatine Kinase Troponin I C-Reactive Protein B-Natriuretic Peptide Total Protein 6.7 Albumin 1.2 L Prealbumin Triglycerides Cholesterol LDL Cholesterol HDL Cholesterol Cholesterol/HDL Ratio Thiamine Vitamin B12 Procalcitonin Free T4 TSH 3rd Generation Urine Color Urine Clarity Urine Turbidity Urine pH Ur Specific [place] Urine Protein Urine Glucose (UA) Urine Ketones Urine Occult Blood Urine Nitrate Urine Nitrite Urine Bilirubin Urine Urobilinogen Ur Leukocyte Esterase Urine RBC Urine WBC Urine WBC Clumps Ur Squamous Epith Cells Ur Transition Epith Cell Ur Renal Epithelial Cell Amorphous Sediment Urine Bacteria Hyaline Casts Granular Casts Urine Mucus Micro UA Comment Urine Culture Comments Urine Eosinophils Urine Osmolality Ur Random Creatinine Ur Random Sodium Pleural pH Pleural WBC Pleural Nuc Cells Pleural RBC Pleural Neutrophils Pleural Eosinophils Pleural Lymphocytes Pleural Monocytes Pleural Histocytes Pleural Mesothelial Pleural Total Protein Pleural Amylase Pleural LDH Pleural Glucose Nasal Screen MRSA (PCR) Stl C.difficile Tox PCR St C. diff Tox Epid 027 Vancomycin Trough Random Vancomycin Phenytoin Free Phenytoin LOWELL Screen RPR Blood Type Antibody Screen MTS Gel Crossmatch Blood Bank Comment 01/03/18 01/03/18 01/03/18 06:00 12:06 12:43 WBC RBC Hgb Hct MCV MCH MCHC RDW Plt Count MPV Prelim Diff (Auto) Neut % (Auto) Lymph % (Auto) [place] % (Auto) Eos % (Auto) Baso % (Auto) Neut # (Auto) Lymph # (Auto) [place] # (Auto) Eos # (Auto) Baso # (Auto) CBC Comment WBC Differential Total Counted Neutrophils % (Manual) Seg Neuts % (Manual) Band Neutrophils % Band Neuts % (Manual) Lymphocytes % Lymphocytes % (Manual) Monocytes % Monocytes % (Manual) Eosinophils % Eosinophils % (Manual) Basophils % Metamyelocytes % (Man) Neutrophils # (Manual) Abs Neuts (Manual) Metamyelocytes Myelocytes Nucleated RBCs Differential Comment Smudge Cells Toxic Granulation Toxic Vacuolation Dohle Bodies Platelet Estimate Platelet Morphology Plt Morphology Comment Basophilic Stippling Spherocytes Tear Drop Cells Ovalocytes Acanthocytes (Spur) RBC Morph Comment ESR Hematology Comments PT 21.7 H INR 2.1 APTT Fibrinogen Puncture Site Patient Temperature HCO3 Base Excess O2 Saturation ABG pH ABG pCO2 ABG pO2 ABG HCO3 ABG O2 Content ABG Base Excess ABG Carboxyhemoglobin ABG Methemoglobin Stepan Test Hemoglobin Carboxyhemoglobin O2 Delivery Device Liter Flow Vent Setting Inspired O2 Critical Value Sodium Potassium Chloride Carbon Dioxide Anion Gap BUN Creatinine Estimated GFR POC Glucose 238 H Random Glucose Hemoglobin A1c Lactic Acid Calcium Prot Corrected Calcium Phosphorus Magnesium Total Bilirubin Direct Bilirubin Indirect Bilirubin AST ALT Alkaline Phosphatase Ammonia Total Creatine Kinase Troponin I C-Reactive Protein B-Natriuretic Peptide Total Protein Albumin Prealbumin Triglycerides Cholesterol LDL Cholesterol HDL Cholesterol Cholesterol/HDL Ratio Thiamine Vitamin B12 Procalcitonin Free T4 TSH 3rd Generation Urine Color Urine Clarity Urine Turbidity Urine pH Ur Specific [place] Urine Protein Urine Glucose (UA) Urine Ketones Urine Occult Blood Urine Nitrate Urine Nitrite Urine Bilirubin Urine Urobilinogen Ur Leukocyte Esterase Urine RBC Urine WBC Urine WBC Clumps Ur Squamous Epith Cells Ur Transition Epith Cell Ur Renal Epithelial Cell Amorphous Sediment Urine Bacteria Hyaline Casts Granular Casts Urine Mucus Micro UA Comment Urine Culture Comments Urine Eosinophils Urine Osmolality Ur Random Creatinine Ur Random Sodium Pleural pH Pleural WBC Pleural Nuc Cells Pleural RBC Pleural Neutrophils Pleural Eosinophils Pleural Lymphocytes Pleural Monocytes Pleural Histocytes Pleural Mesothelial Pleural Total Protein Pleural Amylase Pleural LDH Pleural Glucose Nasal Screen MRSA (PCR) Stl C.difficile Tox PCR St C. diff Tox Epid 027 Vancomycin Trough Random Vancomycin Phenytoin Free Phenytoin LOWELL Screen RPR Blood Type Antibody Screen MTS Gel Crossmatch Blood Bank Comment 01/03/18 01/03/18 01/03/18 17:00 17:00 18:23 WBC RBC Hgb Hct MCV MCH MCHC RDW Plt Count MPV Prelim Diff (Auto) Neut % (Auto) Lymph % (Auto) [place] % (Auto) Eos % (Auto) Baso % (Auto) Neut # (Auto) Lymph # (Auto) [place] # (Auto) Eos # (Auto) Baso # (Auto) CBC Comment WBC Differential Total Counted Neutrophils % (Manual) Seg Neuts % (Manual) Band Neutrophils % Band Neuts % (Manual) Lymphocytes % Lymphocytes % (Manual) Monocytes % Monocytes % (Manual) Eosinophils % Eosinophils % (Manual) Basophils % Metamyelocytes % (Man) Neutrophils # (Manual) Abs Neuts (Manual) Metamyelocytes Myelocytes Nucleated RBCs Differential Comment Smudge Cells Toxic Granulation Toxic Vacuolation Dohle Bodies Platelet Estimate Platelet Morphology Plt Morphology Comment Basophilic Stippling Spherocytes Tear Drop Cells Ovalocytes Acanthocytes (Spur) RBC Morph Comment ESR Hematology Comments PT INR APTT Fibrinogen Puncture Site Patient Temperature HCO3 Base Excess O2 Saturation ABG pH ABG pCO2 ABG pO2 ABG HCO3 ABG O2 Content ABG Base Excess ABG Carboxyhemoglobin ABG Methemoglobin Stepan Test Hemoglobin Carboxyhemoglobin O2 Delivery Device Liter Flow Vent Setting Inspired O2 Critical Value Sodium Potassium Chloride Carbon Dioxide Anion Gap BUN Creatinine Estimated GFR POC Glucose 236 H Random Glucose Hemoglobin A1c Lactic Acid Calcium Prot Corrected Calcium Phosphorus Magnesium Total Bilirubin Direct Bilirubin Indirect Bilirubin AST ALT Alkaline Phosphatase Ammonia Total Creatine Kinase Troponin I C-Reactive Protein B-Natriuretic Peptide Total Protein Albumin Prealbumin Triglycerides Cholesterol LDL Cholesterol HDL Cholesterol Cholesterol/HDL Ratio Thiamine Vitamin B12 Procalcitonin Free T4 TSH 3rd Generation Urine Color Urine Clarity Urine Turbidity Urine pH Ur Specific [place] Urine Protein Urine Glucose (UA) Urine Ketones Urine Occult Blood Urine Nitrate Urine Nitrite Urine Bilirubin Urine Urobilinogen Ur Leukocyte Esterase Urine RBC Urine WBC Urine WBC Clumps Ur Squamous Epith Cells Ur Transition Epith Cell Ur Renal Epithelial Cell Amorphous Sediment Urine Bacteria Hyaline Casts Granular Casts Urine Mucus Micro UA Comment Urine Culture Comments Urine Eosinophils Urine Osmolality Ur Random Creatinine Ur Random Sodium Pleural pH 8.5 Pleural WBC Pleural Nuc Cells 124 H Pleural RBC 62 H Pleural Neutrophils 3 Pleural Eosinophils 3 Pleural Lymphocytes 85 Pleural Monocytes 8 Pleural Histocytes Pleural Mesothelial 1 Pleural Total Protein 2.1 Pleural Amylase 24 Pleural LDH 85 Pleural Glucose 206 Nasal Screen MRSA (PCR) Stl C.difficile Tox PCR St C. diff Tox Epid 027 Vancomycin Trough Random Vancomycin Phenytoin Free Phenytoin LOWELL Screen RPR Blood Type Antibody Screen MTS Gel Crossmatch Blood Bank Comment 01/03/18 01/03/18 01/03/18 20:51 20:51 23:18 WBC RBC Hgb Hct MCV MCH MCHC RDW Plt Count MPV Prelim Diff (Auto) Neut % (Auto) Lymph % (Auto) [place] % (Auto) Eos % (Auto) Baso % (Auto) Neut # (Auto) Lymph # (Auto) [place] # (Auto) Eos # (Auto) Baso # (Auto) CBC Comment WBC Differential Total Counted Neutrophils % (Manual) Seg Neuts % (Manual) Band Neutrophils % Band Neuts % (Manual) Lymphocytes % Lymphocytes % (Manual) Monocytes % Monocytes % (Manual) Eosinophils % Eosinophils % (Manual) Basophils % Metamyelocytes % (Man) Neutrophils # (Manual) Abs Neuts (Manual) Metamyelocytes Myelocytes Nucleated RBCs Differential Comment Smudge Cells Toxic Granulation Toxic Vacuolation Dohle Bodies Platelet Estimate Platelet Morphology Plt Morphology Comment Basophilic Stippling Spherocytes Tear Drop Cells Ovalocytes Acanthocytes (Spur) RBC Morph Comment ESR Hematology Comments PT 17.0 H INR 1.7 APTT 33.8 H Fibrinogen Puncture Site Patient Temperature HCO3 Base Excess O2 Saturation ABG pH ABG pCO2 ABG pO2 ABG HCO3 ABG O2 Content ABG Base Excess ABG Carboxyhemoglobin ABG Methemoglobin Stepan Test Hemoglobin Carboxyhemoglobin O2 Delivery Device Liter Flow Vent Setting Inspired O2 Critical Value Sodium Potassium Chloride Carbon Dioxide Anion Gap BUN Creatinine Estimated GFR POC Glucose 229 H Random Glucose Hemoglobin A1c Lactic Acid Calcium Prot Corrected Calcium Phosphorus Magnesium Total Bilirubin Direct Bilirubin Indirect Bilirubin AST ALT Alkaline Phosphatase Ammonia Total Creatine Kinase Troponin I C-Reactive Protein B-Natriuretic Peptide Total Protein Albumin Prealbumin Triglycerides Cholesterol LDL Cholesterol HDL Cholesterol Cholesterol/HDL Ratio Thiamine Vitamin B12 Procalcitonin Free T4 TSH 3rd Generation Urine Color Urine Clarity Urine Turbidity Urine pH Ur Specific [place] Urine Protein Urine Glucose (UA) Urine Ketones Urine Occult Blood Urine Nitrate Urine Nitrite Urine Bilirubin Urine Urobilinogen Ur Leukocyte Esterase Urine RBC Urine WBC Urine WBC Clumps Ur Squamous Epith Cells Ur Transition Epith Cell Ur Renal Epithelial Cell Amorphous Sediment Urine Bacteria Hyaline Casts Granular Casts Urine Mucus Micro UA Comment Urine Culture Comments Urine Eosinophils Urine Osmolality Ur Random Creatinine Ur Random Sodium Pleural pH Pleural WBC Pleural Nuc Cells Pleural RBC Pleural Neutrophils Pleural Eosinophils Pleural Lymphocytes Pleural Monocytes Pleural Histocytes Pleural Mesothelial Pleural Total Protein Pleural Amylase Pleural LDH Pleural Glucose Nasal Screen MRSA (PCR) Stl C.difficile Tox PCR St C. diff Tox Epid 027 Vancomycin Trough Random Vancomycin Phenytoin Free Phenytoin LOWELL Screen RPR Blood Type Antibody Screen MTS Gel Crossmatch Blood Bank Comment 01/04/18 01/04/18 01/04/18 05:06 05:06 05:06 WBC 12.7 H RBC 2.83 L Hgb 8.4 L Hct 25.6 L MCV 90.2 MCH 29.5 MCHC 32.7 RDW 21.5 H Plt Count 534 H MPV 8.0 Prelim Diff (Auto) Neut % (Auto) Lymph % (Auto) [place] % (Auto) Eos % (Auto) Baso % (Auto) Neut # (Auto) Lymph # (Auto) [place] # (Auto) Eos # (Auto) Baso # (Auto) CBC Comment WBC Differential Total Counted Neutrophils % (Manual) Seg Neuts % (Manual) Band Neutrophils % Band Neuts % (Manual) Lymphocytes % Lymphocytes % (Manual) Monocytes % Monocytes % (Manual) Eosinophils % Eosinophils % (Manual) Basophils % Metamyelocytes % (Man) Neutrophils # (Manual) Abs Neuts (Manual) Metamyelocytes Myelocytes Nucleated RBCs Differential Comment Smudge Cells Toxic Granulation Toxic Vacuolation Dohle Bodies Platelet Estimate Platelet Morphology Plt Morphology Comment Basophilic Stippling Spherocytes Tear Drop Cells Ovalocytes Acanthocytes (Spur) RBC Morph Comment ESR Hematology Comments PT 16.7 H INR 1.7 APTT 42.6 H D Fibrinogen Puncture Site Patient Temperature HCO3 Base Excess O2 Saturation ABG pH ABG pCO2 ABG pO2 ABG HCO3 ABG O2 Content ABG Base Excess ABG Carboxyhemoglobin ABG Methemoglobin Stepan Test Hemoglobin Carboxyhemoglobin O2 Delivery Device Liter Flow Vent Setting Inspired O2 Critical Value Sodium 142 Potassium 4.3 Chloride 104 Carbon Dioxide 27.4 Anion Gap 11 BUN 46 H Creatinine 1.55 H Estimated GFR 44 L POC Glucose Random Glucose 199 H Hemoglobin A1c Lactic Acid Calcium 8.5 D Prot Corrected Calcium Phosphorus Magnesium Total Bilirubin 0.3 Direct Bilirubin Indirect Bilirubin AST 32 ALT 35 Alkaline Phosphatase 144 H Ammonia Total Creatine Kinase Troponin I C-Reactive Protein B-Natriuretic Peptide Total Protein 7.4 D Albumin 1.6 L Prealbumin Triglycerides Cholesterol LDL Cholesterol HDL Cholesterol Cholesterol/HDL Ratio Thiamine Vitamin B12 Procalcitonin Free T4 TSH 3rd Generation Urine Color Urine Clarity Urine Turbidity Urine pH Ur Specific [place] Urine Protein Urine Glucose (UA) Urine Ketones Urine Occult Blood Urine Nitrate Urine Nitrite Urine Bilirubin Urine Urobilinogen Ur Leukocyte Esterase Urine RBC Urine WBC Urine WBC Clumps Ur Squamous Epith Cells Ur Transition Epith Cell Ur Renal Epithelial Cell Amorphous Sediment Urine Bacteria Hyaline Casts Granular Casts Urine Mucus Micro UA Comment Urine Culture Comments Urine Eosinophils Urine Osmolality Ur Random Creatinine Ur Random Sodium Pleural pH Pleural WBC Pleural Nuc Cells Pleural RBC Pleural Neutrophils Pleural Eosinophils Pleural Lymphocytes Pleural Monocytes Pleural Histocytes Pleural Mesothelial Pleural Total Protein Pleural Amylase Pleural LDH Pleural Glucose Nasal Screen MRSA (PCR) Stl C.difficile Tox PCR St C. diff Tox Epid 027 Vancomycin Trough Random Vancomycin Phenytoin Free Phenytoin LOWELL Screen RPR Blood Type Antibody Screen MTS Gel Crossmatch Blood Bank Comment 01/04/18 01/04/18 01/04/18 05:25 12:00 14:01 WBC RBC Hgb Hct MCV MCH MCHC RDW Plt Count MPV Prelim Diff (Auto) Neut % (Auto) Lymph % (Auto) [place] % (Auto) Eos % (Auto) Baso % (Auto) Neut # (Auto) Lymph # (Auto) [place] # (Auto) Eos # (Auto) Baso # (Auto) CBC Comment WBC Differential Total Counted Neutrophils % (Manual) Seg Neuts % (Manual) Band Neutrophils % Band Neuts % (Manual) Lymphocytes % Lymphocytes % (Manual) Monocytes % Monocytes % (Manual) Eosinophils % Eosinophils % (Manual) Basophils % Metamyelocytes % (Man) Neutrophils # (Manual) Abs Neuts (Manual) Metamyelocytes Myelocytes Nucleated RBCs Differential Comment Smudge Cells Toxic Granulation Toxic Vacuolation Dohle Bodies Platelet Estimate Platelet Morphology Plt Morphology Comment Basophilic Stippling Spherocytes Tear Drop Cells Ovalocytes Acanthocytes (Spur) RBC Morph Comment ESR Hematology Comments PT INR APTT 33.8 H D Fibrinogen Puncture Site Patient Temperature HCO3 Base Excess O2 Saturation ABG pH ABG pCO2 ABG pO2 ABG HCO3 ABG O2 Content ABG Base Excess ABG Carboxyhemoglobin ABG Methemoglobin Stepan Test Hemoglobin Carboxyhemoglobin O2 Delivery Device Liter Flow Vent Setting Inspired O2 Critical Value Sodium Potassium Chloride Carbon Dioxide Anion Gap BUN Creatinine Estimated GFR POC Glucose 243 H 234 H Random Glucose Hemoglobin A1c Lactic Acid Calcium Prot Corrected Calcium Phosphorus Magnesium Total Bilirubin Direct Bilirubin Indirect Bilirubin AST ALT Alkaline Phosphatase Ammonia Total Creatine Kinase Troponin I C-Reactive Protein B-Natriuretic Peptide Total Protein Albumin Prealbumin Triglycerides Cholesterol LDL Cholesterol HDL Cholesterol Cholesterol/HDL Ratio Thiamine Vitamin B12 Procalcitonin Free T4 TSH 3rd Generation Urine Color Urine Clarity Urine Turbidity Urine pH Ur Specific [place] Urine Protein Urine Glucose (UA) Urine Ketones Urine Occult Blood Urine Nitrate Urine Nitrite Urine Bilirubin Urine Urobilinogen Ur Leukocyte Esterase Urine RBC Urine WBC Urine WBC Clumps Ur Squamous Epith Cells Ur Transition Epith Cell Ur Renal Epithelial Cell Amorphous Sediment Urine Bacteria Hyaline Casts Granular Casts Urine Mucus Micro UA Comment Urine Culture Comments Urine Eosinophils Urine Osmolality Ur Random Creatinine Ur Random Sodium Pleural pH Pleural WBC Pleural Nuc Cells Pleural RBC Pleural Neutrophils Pleural Eosinophils Pleural Lymphocytes Pleural Monocytes Pleural Histocytes Pleural Mesothelial Pleural Total Protein Pleural Amylase Pleural LDH Pleural Glucose Nasal Screen MRSA (PCR) Stl C.difficile Tox PCR St C. diff Tox Epid 027 Vancomycin Trough Random Vancomycin Phenytoin Free Phenytoin LOWELL Screen RPR Blood Type Antibody Screen MTS Gel Crossmatch Blood Bank Comment 01/04/18 01/04/18 01/05/18 18:33 23:28 02:22 WBC RBC Hgb Hct MCV MCH MCHC RDW Plt Count MPV Prelim Diff (Auto) Neut % (Auto) Lymph % (Auto) [place] % (Auto) Eos % (Auto) Baso % (Auto) Neut # (Auto) Lymph # (Auto) [place] # (Auto) Eos # (Auto) Baso # (Auto) CBC Comment WBC Differential Total Counted Neutrophils % (Manual) Seg Neuts % (Manual) Band Neutrophils % Band Neuts % (Manual) Lymphocytes % Lymphocytes % (Manual) Monocytes % Monocytes % (Manual) Eosinophils % Eosinophils % (Manual) Basophils % Metamyelocytes % (Man) Neutrophils # (Manual) Abs Neuts (Manual) Metamyelocytes Myelocytes Nucleated RBCs Differential Comment Smudge Cells Toxic Granulation Toxic Vacuolation Dohle Bodies Platelet Estimate Platelet Morphology Plt Morphology Comment Basophilic Stippling Spherocytes Tear Drop Cells Ovalocytes Acanthocytes (Spur) RBC Morph Comment ESR Hematology Comments PT INR APTT 47.0 H D Fibrinogen Puncture Site Patient Temperature HCO3 Base Excess O2 Saturation ABG pH ABG pCO2 ABG pO2 ABG HCO3 ABG O2 Content ABG Base Excess ABG Carboxyhemoglobin ABG Methemoglobin Stepan Test Hemoglobin Carboxyhemoglobin O2 Delivery Device Liter Flow Vent Setting Inspired O2 Critical Value Sodium Potassium Chloride Carbon Dioxide Anion Gap BUN Creatinine Estimated GFR POC Glucose 242 H 200 H Random Glucose Hemoglobin A1c Lactic Acid Calcium Prot Corrected Calcium Phosphorus Magnesium Total Bilirubin Direct Bilirubin Indirect Bilirubin AST ALT Alkaline Phosphatase Ammonia Total Creatine Kinase Troponin I C-Reactive Protein B-Natriuretic Peptide Total Protein Albumin Prealbumin Triglycerides Cholesterol LDL Cholesterol HDL Cholesterol Cholesterol/HDL Ratio Thiamine Vitamin B12 Procalcitonin Free T4 TSH 3rd Generation Urine Color Urine Clarity Urine Turbidity Urine pH Ur Specific [place] Urine Protein Urine Glucose (UA) Urine Ketones Urine Occult Blood Urine Nitrate Urine Nitrite Urine Bilirubin Urine Urobilinogen Ur Leukocyte Esterase Urine RBC Urine WBC Urine WBC Clumps Ur Squamous Epith Cells Ur Transition Epith Cell Ur Renal Epithelial Cell Amorphous Sediment Urine Bacteria Hyaline Casts Granular Casts Urine Mucus Micro UA Comment Urine Culture Comments Urine Eosinophils Urine Osmolality Ur Random Creatinine Ur Random Sodium Pleural pH Pleural WBC Pleural Nuc Cells Pleural RBC Pleural Neutrophils Pleural Eosinophils Pleural Lymphocytes Pleural Monocytes Pleural Histocytes Pleural Mesothelial Pleural Total Protein Pleural Amylase Pleural LDH Pleural Glucose Nasal Screen MRSA (PCR) Stl C.difficile Tox PCR St C. diff Tox Epid 027 Vancomycin Trough Random Vancomycin Phenytoin Free Phenytoin LOWELL Screen RPR Blood Type Antibody Screen MTS Gel Crossmatch Blood Bank Comment 01/05/18 01/05/18 01/05/18 05:58 06:59 06:59 WBC 11.3 H RBC 2.83 L Hgb 8.2 L Hct 25.6 L MCV 90.6 MCH 29.1 MCHC 32.1 RDW 20.6 H Plt Count 467 H MPV 8.2 Prelim Diff (Auto) Neut % (Auto) Lymph % (Auto) [place] % (Auto) Eos % (Auto) Baso % (Auto) Neut # (Auto) Lymph # (Auto) [place] # (Auto) Eos # (Auto) Baso # (Auto) CBC Comment WBC Differential Total Counted Neutrophils % (Manual) Seg Neuts % (Manual) Band Neutrophils % Band Neuts % (Manual) Lymphocytes % Lymphocytes % (Manual) Monocytes % Monocytes % (Manual) Eosinophils % Eosinophils % (Manual) Basophils % Metamyelocytes % (Man) Neutrophils # (Manual) Abs Neuts (Manual) Metamyelocytes Myelocytes Nucleated RBCs Differential Comment Smudge Cells Toxic Granulation Toxic Vacuolation Dohle Bodies Platelet Estimate Platelet Morphology Plt Morphology Comment Basophilic Stippling Spherocytes Tear Drop Cells Ovalocytes Acanthocytes (Spur) RBC Morph Comment ESR Hematology Comments PT INR APTT Fibrinogen Puncture Site Patient Temperature HCO3 Base Excess O2 Saturation ABG pH ABG pCO2 ABG pO2 ABG HCO3 ABG O2 Content ABG Base Excess ABG Carboxyhemoglobin ABG Methemoglobin Stepan Test Hemoglobin Carboxyhemoglobin O2 Delivery Device Liter Flow Vent Setting Inspired O2 Critical Value Sodium 145 Potassium 4.2 Chloride 109 H Carbon Dioxide 29.5 Anion Gap 7 BUN 47 H Creatinine 1.46 H Estimated GFR 47 L POC Glucose 195 H Random Glucose 191 H Hemoglobin A1c Lactic Acid Calcium 8.0 L Prot Corrected Calcium Phosphorus Magnesium Total Bilirubin 0.3 Direct Bilirubin Indirect Bilirubin AST 29 ALT 29 Alkaline Phosphatase 123 H Ammonia Total Creatine Kinase Troponin I C-Reactive Protein B-Natriuretic Peptide Total Protein 6.5 D Albumin 1.4 L Prealbumin Triglycerides Cholesterol LDL Cholesterol HDL Cholesterol Cholesterol/HDL Ratio Thiamine Vitamin B12 Procalcitonin Free T4 TSH 3rd Generation Urine Color Urine Clarity Urine Turbidity Urine pH Ur Specific [place] Urine Protein Urine Glucose (UA) Urine Ketones Urine Occult Blood Urine Nitrate Urine Nitrite Urine Bilirubin Urine Urobilinogen Ur Leukocyte Esterase Urine RBC Urine WBC Urine WBC Clumps Ur Squamous Epith Cells Ur Transition Epith Cell Ur Renal Epithelial Cell Amorphous Sediment Urine Bacteria Hyaline Casts Granular Casts Urine Mucus Micro UA Comment Urine Culture Comments Urine Eosinophils Urine Osmolality Ur Random Creatinine Ur Random Sodium Pleural pH Pleural WBC Pleural Nuc Cells Pleural RBC Pleural Neutrophils Pleural Eosinophils Pleural Lymphocytes Pleural Monocytes Pleural Histocytes Pleural Mesothelial Pleural Total Protein Pleural Amylase Pleural LDH Pleural Glucose Nasal Screen MRSA (PCR) Stl C.difficile Tox PCR St C. diff Tox Epid 027 Vancomycin Trough Random Vancomycin Phenytoin Free Phenytoin LOWELL Screen RPR Blood Type Antibody Screen MTS Gel Crossmatch Blood Bank Comment 01/05/18 01/05/18 01/05/18 06:59 09:33 12:38 WBC RBC Hgb Hct MCV MCH MCHC RDW Plt Count MPV Prelim Diff (Auto) Neut % (Auto) Lymph % (Auto) [place] % (Auto) Eos % (Auto) Baso % (Auto) Neut # (Auto) Lymph # (Auto) [place] # (Auto) Eos # (Auto) Baso # (Auto) CBC Comment WBC Differential Total Counted Neutrophils % (Manual) Seg Neuts % (Manual) Band Neutrophils % Band Neuts % (Manual) Lymphocytes % Lymphocytes % (Manual) Monocytes % Monocytes % (Manual) Eosinophils % Eosinophils % (Manual) Basophils % Metamyelocytes % (Man) Neutrophils # (Manual) Abs Neuts (Manual) Metamyelocytes Myelocytes Nucleated RBCs Differential Comment Smudge Cells Toxic Granulation Toxic Vacuolation Dohle Bodies Platelet Estimate Platelet Morphology Plt Morphology Comment Basophilic Stippling Spherocytes Tear Drop Cells Ovalocytes Acanthocytes (Spur) RBC Morph Comment ESR Hematology Comments PT 15.5 H INR 1.5 APTT 38.6 H Fibrinogen Puncture Site Patient Temperature HCO3 Base Excess O2 Saturation ABG pH ABG pCO2 ABG pO2 ABG HCO3 ABG O2 Content ABG Base Excess ABG Carboxyhemoglobin ABG Methemoglobin Stepan Test Hemoglobin Carboxyhemoglobin O2 Delivery Device Liter Flow Vent Setting Inspired O2 Critical Value Sodium Potassium Chloride Carbon Dioxide Anion Gap BUN Creatinine Estimated GFR POC Glucose 232 H Random Glucose Hemoglobin A1c Lactic Acid Calcium Prot Corrected Calcium Phosphorus Magnesium Total Bilirubin Direct Bilirubin Indirect Bilirubin AST ALT Alkaline Phosphatase Ammonia Total Creatine Kinase Troponin I C-Reactive Protein B-Natriuretic Peptide Total Protein Albumin Prealbumin Triglycerides Cholesterol LDL Cholesterol HDL Cholesterol Cholesterol/HDL Ratio Thiamine Vitamin B12 Procalcitonin Free T4 TSH 3rd Generation Urine Color Urine Clarity Urine Turbidity Urine pH Ur Specific [place] Urine Protein Urine Glucose (UA) Urine Ketones Urine Occult Blood Urine Nitrate Urine Nitrite Urine Bilirubin Urine Urobilinogen Ur Leukocyte Esterase Urine RBC Urine WBC Urine WBC Clumps Ur Squamous Epith Cells Ur Transition Epith Cell Ur Renal Epithelial Cell Amorphous Sediment Urine Bacteria Hyaline Casts Granular Casts Urine Mucus Micro UA Comment Urine Culture Comments Urine Eosinophils Urine Osmolality Ur Random Creatinine Ur Random Sodium Pleural pH Pleural WBC Pleural Nuc Cells Pleural RBC Pleural Neutrophils Pleural Eosinophils Pleural Lymphocytes Pleural Monocytes Pleural Histocytes Pleural Mesothelial Pleural Total Protein Pleural Amylase Pleural LDH Pleural Glucose Nasal Screen MRSA (PCR) Stl C.difficile Tox PCR St C. diff Tox Epid 027 Vancomycin Trough Random Vancomycin Phenytoin Free Phenytoin LOWELL Screen RPR Blood Type Antibody Screen MTS Gel Crossmatch Blood Bank Comment 01/05/18 01/05/18 01/05/18 14:40 17:25 20:17 WBC RBC Hgb Hct MCV MCH MCHC RDW Plt Count MPV Prelim Diff (Auto) Neut % (Auto) Lymph % (Auto) [place] % (Auto) Eos % (Auto) Baso % (Auto) Neut # (Auto) Lymph # (Auto) [place] # (Auto) Eos # (Auto) Baso # (Auto) CBC Comment WBC Differential Total Counted Neutrophils % (Manual) Seg Neuts % (Manual) Band Neutrophils % Band Neuts % (Manual) Lymphocytes % Lymphocytes % (Manual) Monocytes % Monocytes % (Manual) Eosinophils % Eosinophils % (Manual) Basophils % Metamyelocytes % (Man) Neutrophils # (Manual) Abs Neuts (Manual) Metamyelocytes Myelocytes Nucleated RBCs Differential Comment Smudge Cells Toxic Granulation Toxic Vacuolation Dohle Bodies Platelet Estimate Platelet Morphology Plt Morphology Comment Basophilic Stippling Spherocytes Tear Drop Cells Ovalocytes Acanthocytes (Spur) RBC Morph Comment ESR Hematology Comments PT INR APTT 44.5 H 47.9 H Fibrinogen Puncture Site Patient Temperature HCO3 Base Excess O2 Saturation ABG pH ABG pCO2 ABG pO2 ABG HCO3 ABG O2 Content ABG Base Excess ABG Carboxyhemoglobin ABG Methemoglobin Stepan Test Hemoglobin Carboxyhemoglobin O2 Delivery Device Liter Flow Vent Setting Inspired O2 Critical Value Sodium Potassium Chloride Carbon Dioxide Anion Gap BUN Creatinine Estimated GFR POC Glucose 262 H Random Glucose Hemoglobin A1c Lactic Acid Calcium Prot Corrected Calcium Phosphorus Magnesium Total Bilirubin Direct Bilirubin Indirect Bilirubin AST ALT Alkaline Phosphatase Ammonia Total Creatine Kinase Troponin I C-Reactive Protein B-Natriuretic Peptide Total Protein Albumin Prealbumin Triglycerides Cholesterol LDL Cholesterol HDL Cholesterol Cholesterol/HDL Ratio Thiamine Vitamin B12 Procalcitonin Free T4 TSH 3rd Generation Urine Color Urine Clarity Urine Turbidity Urine pH Ur Specific [place] Urine Protein Urine Glucose (UA) Urine Ketones Urine Occult Blood Urine Nitrate Urine Nitrite Urine Bilirubin Urine Urobilinogen Ur Leukocyte Esterase Urine RBC Urine WBC Urine WBC Clumps Ur Squamous Epith Cells Ur Transition Epith Cell Ur Renal Epithelial Cell Amorphous Sediment Urine Bacteria Hyaline Casts Granular Casts Urine Mucus Micro UA Comment Urine Culture Comments Urine Eosinophils Urine Osmolality Ur Random Creatinine Ur Random Sodium Pleural pH Pleural WBC Pleural Nuc Cells Pleural RBC Pleural Neutrophils Pleural Eosinophils Pleural Lymphocytes Pleural Monocytes Pleural Histocytes Pleural Mesothelial Pleural Total Protein Pleural Amylase Pleural LDH Pleural Glucose Nasal Screen MRSA (PCR) Stl C.difficile Tox PCR St C. diff Tox Epid 027 Vancomycin Trough Random Vancomycin Phenytoin Free Phenytoin LOWELL Screen RPR Blood Type Antibody Screen MTS Gel Crossmatch Blood Bank Comment 01/06/18 01/06/18 01/06/18 00:18 05:33 05:34 WBC RBC Hgb Hct MCV MCH MCHC RDW Plt Count MPV Prelim Diff (Auto) Neut % (Auto) Lymph % (Auto) [place] % (Auto) Eos % (Auto) Baso % (Auto) Neut # (Auto) Lymph # (Auto) [place] # (Auto) Eos # (Auto) Baso # (Auto) CBC Comment WBC Differential Total Counted Neutrophils % (Manual) Seg Neuts % (Manual) Band Neutrophils % Band Neuts % (Manual) Lymphocytes % Lymphocytes % (Manual) Monocytes % Monocytes % (Manual) Eosinophils % Eosinophils % (Manual) Basophils % Metamyelocytes % (Man) Neutrophils # (Manual) Abs Neuts (Manual) Metamyelocytes Myelocytes Nucleated RBCs Differential Comment Smudge Cells Toxic Granulation Toxic Vacuolation Dohle Bodies Platelet Estimate Platelet Morphology Plt Morphology Comment Basophilic Stippling Spherocytes Tear Drop Cells Ovalocytes Acanthocytes (Spur) RBC Morph Comment ESR Hematology Comments PT 14.9 H INR 1.5 APTT Fibrinogen Puncture Site Patient Temperature HCO3 Base Excess O2 Saturation ABG pH ABG pCO2 ABG pO2 ABG HCO3 ABG O2 Content ABG Base Excess ABG Carboxyhemoglobin ABG Methemoglobin Stepan Test Hemoglobin Carboxyhemoglobin O2 Delivery Device Liter Flow Vent Setting Inspired O2 Critical Value Sodium Potassium Chloride Carbon Dioxide Anion Gap BUN Creatinine Estimated GFR POC Glucose 261 H 214 H Random Glucose Hemoglobin A1c Lactic Acid Calcium Prot Corrected Calcium Phosphorus Magnesium Total Bilirubin Direct Bilirubin Indirect Bilirubin AST ALT Alkaline Phosphatase Ammonia Total Creatine Kinase Troponin I C-Reactive Protein B-Natriuretic Peptide Total Protein Albumin Prealbumin Triglycerides Cholesterol LDL Cholesterol HDL Cholesterol Cholesterol/HDL Ratio Thiamine Vitamin B12 Procalcitonin Free T4 TSH 3rd Generation Urine Color Urine Clarity Urine Turbidity Urine pH Ur Specific [place] Urine Protein Urine Glucose (UA) Urine Ketones Urine Occult Blood Urine Nitrate Urine Nitrite Urine Bilirubin Urine Urobilinogen Ur Leukocyte Esterase Urine RBC Urine WBC Urine WBC Clumps Ur Squamous Epith Cells Ur Transition Epith Cell Ur Renal Epithelial Cell Amorphous Sediment Urine Bacteria Hyaline Casts Granular Casts Urine Mucus Micro UA Comment Urine Culture Comments Urine Eosinophils Urine Osmolality Ur Random Creatinine Ur Random Sodium Pleural pH Pleural WBC Pleural Nuc Cells Pleural RBC Pleural Neutrophils Pleural Eosinophils Pleural Lymphocytes Pleural Monocytes Pleural Histocytes Pleural Mesothelial Pleural Total Protein Pleural Amylase Pleural LDH Pleural Glucose Nasal Screen MRSA (PCR) Stl C.difficile Tox PCR St C. diff Tox Epid 027 Vancomycin Trough Random Vancomycin Phenytoin Free Phenytoin LOWELL Screen RPR Blood Type Antibody Screen MTS Gel Crossmatch Blood Bank Comment 01/06/18 01/06/18 01/06/18 05:34 08:50 12:31 WBC RBC Hgb Hct MCV MCH MCHC RDW Plt Count MPV Prelim Diff (Auto) Neut % (Auto) Lymph % (Auto) [place] % (Auto) Eos % (Auto) Baso % (Auto) Neut # (Auto) Lymph # (Auto) [place] # (Auto) Eos # (Auto) Baso # (Auto) CBC Comment WBC Differential Total Counted Neutrophils % (Manual) Seg Neuts % (Manual) Band Neutrophils % Band Neuts % (Manual) Lymphocytes % Lymphocytes % (Manual) Monocytes % Monocytes % (Manual) Eosinophils % Eosinophils % (Manual) Basophils % Metamyelocytes % (Man) Neutrophils # (Manual) Abs Neuts (Manual) Metamyelocytes Myelocytes Nucleated RBCs Differential Comment Smudge Cells Toxic Granulation Toxic Vacuolation Dohle Bodies Platelet Estimate Platelet Morphology Plt Morphology Comment Basophilic Stippling Spherocytes Tear Drop Cells Ovalocytes Acanthocytes (Spur) RBC Morph Comment ESR Hematology Comments PT INR APTT 43.5 H Fibrinogen Puncture Site Patient Temperature HCO3 Base Excess O2 Saturation ABG pH ABG pCO2 ABG pO2 ABG HCO3 ABG O2 Content ABG Base Excess ABG Carboxyhemoglobin ABG Methemoglobin Stepan Test Hemoglobin Carboxyhemoglobin O2 Delivery Device Liter Flow Vent Setting Inspired O2 Critical Value Sodium Potassium Chloride Carbon Dioxide Anion Gap BUN Creatinine Estimated GFR POC Glucose 209 H Random Glucose Hemoglobin A1c Lactic Acid Calcium Prot Corrected Calcium Phosphorus Magnesium Total Bilirubin Direct Bilirubin Indirect Bilirubin AST ALT Alkaline Phosphatase Ammonia Total Creatine Kinase Troponin I C-Reactive Protein B-Natriuretic Peptide Total Protein Albumin 1.3 L Prealbumin Triglycerides Cholesterol LDL Cholesterol HDL Cholesterol Cholesterol/HDL Ratio Thiamine Vitamin B12 Procalcitonin Free T4 TSH 3rd Generation Urine Color Urine Clarity Urine Turbidity Urine pH Ur Specific [place] Urine Protein Urine Glucose (UA) Urine Ketones Urine Occult Blood Urine Nitrate Urine Nitrite Urine Bilirubin Urine Urobilinogen Ur Leukocyte Esterase Urine RBC Urine WBC Urine WBC Clumps Ur Squamous Epith Cells Ur Transition Epith Cell Ur Renal Epithelial Cell Amorphous Sediment Urine Bacteria Hyaline Casts Granular Casts Urine Mucus Micro UA Comment Urine Culture Comments Urine Eosinophils Urine Osmolality Ur Random Creatinine Ur Random Sodium Pleural pH Pleural WBC Pleural Nuc Cells Pleural RBC Pleural Neutrophils Pleural Eosinophils Pleural Lymphocytes Pleural Monocytes Pleural Histocytes Pleural Mesothelial Pleural Total Protein Pleural Amylase Pleural LDH Pleural Glucose Nasal Screen MRSA (PCR) Stl C.difficile Tox PCR St C. diff Tox Epid 027 Vancomycin Trough Random Vancomycin Phenytoin Free Phenytoin LOWELL Screen RPR Blood Type Antibody Screen MTS Gel Crossmatch Blood Bank Comment 01/06/18 01/06/18 01/06/18 12:31 14:41 17:05 WBC RBC Hgb Hct MCV MCH MCHC RDW Plt Count MPV Prelim Diff (Auto) Neut % (Auto) Lymph % (Auto) [place] % (Auto) Eos % (Auto) Baso % (Auto) Neut # (Auto) Lymph # (Auto) [place] # (Auto) Eos # (Auto) Baso # (Auto) CBC Comment WBC Differential Total Counted Neutrophils % (Manual) Seg Neuts % (Manual) Band Neutrophils % Band Neuts % (Manual) Lymphocytes % Lymphocytes % (Manual) Monocytes % Monocytes % (Manual) Eosinophils % Eosinophils % (Manual) Basophils % Metamyelocytes % (Man) Neutrophils # (Manual) Abs Neuts (Manual) Metamyelocytes Myelocytes Nucleated RBCs Differential Comment Smudge Cells Toxic Granulation Toxic Vacuolation Dohle Bodies Platelet Estimate Platelet Morphology Plt Morphology Comment Basophilic Stippling Spherocytes Tear Drop Cells Ovalocytes Acanthocytes (Spur) RBC Morph Comment ESR Hematology Comments PT INR APTT 46.7 H Fibrinogen Puncture Site Patient Temperature HCO3 Base Excess O2 Saturation ABG pH ABG pCO2 ABG pO2 ABG HCO3 ABG O2 Content ABG Base Excess ABG Carboxyhemoglobin ABG Methemoglobin Stepan Test Hemoglobin Carboxyhemoglobin O2 Delivery Device Liter Flow Vent Setting Inspired O2 Critical Value Sodium Potassium Chloride Carbon Dioxide Anion Gap BUN Creatinine Estimated GFR POC Glucose 215 H Random Glucose Hemoglobin A1c Lactic Acid Calcium Prot Corrected Calcium Phosphorus Magnesium Total Bilirubin Direct Bilirubin Indirect Bilirubin AST ALT Alkaline Phosphatase Ammonia Total Creatine Kinase Troponin I C-Reactive Protein B-Natriuretic Peptide Total Protein Albumin Prealbumin 11 L Triglycerides Cholesterol LDL Cholesterol HDL Cholesterol Cholesterol/HDL Ratio Thiamine Vitamin B12 Procalcitonin Free T4 TSH 3rd Generation Urine Color Urine Clarity Urine Turbidity Urine pH Ur Specific [place] Urine Protein Urine Glucose (UA) Urine Ketones Urine Occult Blood Urine Nitrate Urine Nitrite Urine Bilirubin Urine Urobilinogen Ur Leukocyte Esterase Urine RBC Urine WBC Urine WBC Clumps Ur Squamous Epith Cells Ur Transition Epith Cell Ur Renal Epithelial Cell Amorphous Sediment Urine Bacteria Hyaline Casts Granular Casts Urine Mucus Micro UA Comment Urine Culture Comments Urine Eosinophils Urine Osmolality Ur Random Creatinine Ur Random Sodium Pleural pH Pleural WBC Pleural Nuc Cells Pleural RBC Pleural Neutrophils Pleural Eosinophils Pleural Lymphocytes Pleural Monocytes Pleural Histocytes Pleural Mesothelial Pleural Total Protein Pleural Amylase Pleural LDH Pleural Glucose Nasal Screen MRSA (PCR) Stl C.difficile Tox PCR St C. diff Tox Epid 027 Vancomycin Trough Random Vancomycin Phenytoin Free Phenytoin LOWELL Screen RPR Blood Type Antibody Screen MTS Gel Crossmatch Blood Bank Comment 01/06/18 01/07/18 01/07/18 18:52 00:22 04:55 WBC RBC Hgb Hct MCV MCH MCHC RDW Plt Count MPV Prelim Diff (Auto) Neut % (Auto) Lymph % (Auto) [place] % (Auto) Eos % (Auto) Baso % (Auto) Neut # (Auto) Lymph # (Auto) [place] # (Auto) Eos # (Auto) Baso # (Auto) CBC Comment WBC Differential Total Counted Neutrophils % (Manual) Seg Neuts % (Manual) Band Neutrophils % Band Neuts % (Manual) Lymphocytes % Lymphocytes % (Manual) Monocytes % Monocytes % (Manual) Eosinophils % Eosinophils % (Manual) Basophils % Metamyelocytes % (Man) Neutrophils # (Manual) Abs Neuts (Manual) Metamyelocytes Myelocytes Nucleated RBCs Differential Comment Smudge Cells Toxic Granulation Toxic Vacuolation Dohle Bodies Platelet Estimate Platelet Morphology Plt Morphology Comment Basophilic Stippling Spherocytes Tear Drop Cells Ovalocytes Acanthocytes (Spur) RBC Morph Comment ESR Hematology Comments PT 15.6 H INR 1.5 APTT Fibrinogen Puncture Site Patient Temperature HCO3 Base Excess O2 Saturation ABG pH ABG pCO2 ABG pO2 ABG HCO3 ABG O2 Content ABG Base Excess ABG Carboxyhemoglobin ABG Methemoglobin Stepan Test Hemoglobin Carboxyhemoglobin O2 Delivery Device Liter Flow Vent Setting Inspired O2 Critical Value Sodium Potassium Chloride Carbon Dioxide Anion Gap BUN Creatinine Estimated GFR POC Glucose 263 H 230 H Random Glucose Hemoglobin A1c Lactic Acid Calcium Prot Corrected Calcium Phosphorus Magnesium Total Bilirubin Direct Bilirubin Indirect Bilirubin AST ALT Alkaline Phosphatase Ammonia Total Creatine Kinase Troponin I C-Reactive Protein B-Natriuretic Peptide Total Protein Albumin Prealbumin Triglycerides Cholesterol LDL Cholesterol HDL Cholesterol Cholesterol/HDL Ratio Thiamine Vitamin B12 Procalcitonin Free T4 TSH 3rd Generation Urine Color Urine Clarity Urine Turbidity Urine pH Ur Specific [place] Urine Protein Urine Glucose (UA) Urine Ketones Urine Occult Blood Urine Nitrate Urine Nitrite Urine Bilirubin Urine Urobilinogen Ur Leukocyte Esterase Urine RBC Urine WBC Urine WBC Clumps Ur Squamous Epith Cells Ur Transition Epith Cell Ur Renal Epithelial Cell Amorphous Sediment Urine Bacteria Hyaline Casts Granular Casts Urine Mucus Micro UA Comment Urine Culture Comments Urine Eosinophils Urine Osmolality Ur Random Creatinine Ur Random Sodium Pleural pH Pleural WBC Pleural Nuc Cells Pleural RBC Pleural Neutrophils Pleural Eosinophils Pleural Lymphocytes Pleural Monocytes Pleural Histocytes Pleural Mesothelial Pleural Total Protein Pleural Amylase Pleural LDH Pleural Glucose Nasal Screen MRSA (PCR) Stl C.difficile Tox PCR St C. diff Tox Epid 027 Vancomycin Trough Random Vancomycin Phenytoin Free Phenytoin LOWELL Screen RPR Blood Type Antibody Screen MTS Gel Crossmatch Blood Bank Comment 01/07/18 01/07/18 01/07/18 04:55 05:51 08:04 WBC RBC Hgb Hct MCV MCH MCHC RDW Plt Count MPV Prelim Diff (Auto) Neut % (Auto) Lymph % (Auto) [place] % (Auto) Eos % (Auto) Baso % (Auto) Neut # (Auto) Lymph # (Auto) [place] # (Auto) Eos # (Auto) Baso # (Auto) CBC Comment WBC Differential Total Counted Neutrophils % (Manual) Seg Neuts % (Manual) Band Neutrophils % Band Neuts % (Manual) Lymphocytes % Lymphocytes % (Manual) Monocytes % Monocytes % (Manual) Eosinophils % Eosinophils % (Manual) Basophils % Metamyelocytes % (Man) Neutrophils # (Manual) Abs Neuts (Manual) Metamyelocytes Myelocytes Nucleated RBCs Differential Comment Smudge Cells Toxic Granulation Toxic Vacuolation Dohle Bodies Platelet Estimate Platelet Morphology Plt Morphology Comment Basophilic Stippling Spherocytes Tear Drop Cells Ovalocytes Acanthocytes (Spur) RBC Morph Comment ESR Hematology Comments PT INR APTT 49.9 H Fibrinogen Puncture Site Patient Temperature HCO3 Base Excess O2 Saturation ABG pH ABG pCO2 ABG pO2 ABG HCO3 ABG O2 Content ABG Base Excess ABG Carboxyhemoglobin ABG Methemoglobin Stepan Test Hemoglobin Carboxyhemoglobin O2 Delivery Device Liter Flow Vent Setting Inspired O2 Critical Value Sodium Potassium Chloride Carbon Dioxide Anion Gap BUN Creatinine Estimated GFR POC Glucose 145 H 135 H Random Glucose Hemoglobin A1c Lactic Acid Calcium Prot Corrected Calcium Phosphorus Magnesium Total Bilirubin Direct Bilirubin Indirect Bilirubin AST ALT Alkaline Phosphatase Ammonia Total Creatine Kinase Troponin I C-Reactive Protein B-Natriuretic Peptide Total Protein Albumin Prealbumin Triglycerides Cholesterol LDL Cholesterol HDL Cholesterol Cholesterol/HDL Ratio Thiamine Vitamin B12 Procalcitonin Free T4 TSH 3rd Generation Urine Color Urine Clarity Urine Turbidity Urine pH Ur Specific [place] Urine Protein Urine Glucose (UA) Urine Ketones Urine Occult Blood Urine Nitrate Urine Nitrite Urine Bilirubin Urine Urobilinogen Ur Leukocyte Esterase Urine RBC Urine WBC Urine WBC Clumps Ur Squamous Epith Cells Ur Transition Epith Cell Ur Renal Epithelial Cell Amorphous Sediment Urine Bacteria Hyaline Casts Granular Casts Urine Mucus Micro UA Comment Urine Culture Comments Urine Eosinophils Urine Osmolality Ur Random Creatinine Ur Random Sodium Pleural pH Pleural WBC Pleural Nuc Cells Pleural RBC Pleural Neutrophils Pleural Eosinophils Pleural Lymphocytes Pleural Monocytes Pleural Histocytes Pleural Mesothelial Pleural Total Protein Pleural Amylase Pleural LDH Pleural Glucose Nasal Screen MRSA (PCR) Stl C.difficile Tox PCR St C. diff Tox Epid 027 Vancomycin Trough Random Vancomycin Phenytoin Free Phenytoin LOWELL Screen RPR Blood Type Antibody Screen MTS Gel Crossmatch Blood Bank Comment 01/07/18 01/08/18 01/08/18 14:12 00:14 04:50 WBC RBC Hgb Hct MCV MCH MCHC RDW Plt Count MPV Prelim Diff (Auto) Neut % (Auto) Lymph % (Auto) [place] % (Auto) Eos % (Auto) Baso % (Auto) Neut # (Auto) Lymph # (Auto) [place] # (Auto) Eos # (Auto) Baso # (Auto) CBC Comment WBC Differential Total Counted Neutrophils % (Manual) Seg Neuts % (Manual) Band Neutrophils % Band Neuts % (Manual) Lymphocytes % Lymphocytes % (Manual) Monocytes % Monocytes % (Manual) Eosinophils % Eosinophils % (Manual) Basophils % Metamyelocytes % (Man) Neutrophils # (Manual) Abs Neuts (Manual) Metamyelocytes Myelocytes Nucleated RBCs Differential Comment Smudge Cells Toxic Granulation Toxic Vacuolation Dohle Bodies Platelet Estimate Platelet Morphology Plt Morphology Comment Basophilic Stippling Spherocytes Tear Drop Cells Ovalocytes Acanthocytes (Spur) RBC Morph Comment ESR Hematology Comments PT 17.8 H INR 1.8 APTT 40.6 H Fibrinogen Puncture Site Patient Temperature HCO3 Base Excess O2 Saturation ABG pH ABG pCO2 ABG pO2 ABG HCO3 ABG O2 Content ABG Base Excess ABG Carboxyhemoglobin ABG Methemoglobin Stepan Test Hemoglobin Carboxyhemoglobin O2 Delivery Device Liter Flow Vent Setting Inspired O2 Critical Value Sodium Potassium Chloride Carbon Dioxide Anion Gap BUN Creatinine Estimated GFR POC Glucose 276 H Random Glucose Hemoglobin A1c Lactic Acid Calcium Prot Corrected Calcium Phosphorus Magnesium Total Bilirubin Direct Bilirubin Indirect Bilirubin AST ALT Alkaline Phosphatase Ammonia Total Creatine Kinase Troponin I C-Reactive Protein B-Natriuretic Peptide Total Protein Albumin Prealbumin Triglycerides Cholesterol LDL Cholesterol HDL Cholesterol Cholesterol/HDL Ratio Thiamine Vitamin B12 Procalcitonin 0.30 Free T4 TSH 3rd Generation Urine Color Urine Clarity Urine Turbidity Urine pH Ur Specific [place] Urine Protein Urine Glucose (UA) Urine Ketones Urine Occult Blood Urine Nitrate Urine Nitrite Urine Bilirubin Urine Urobilinogen Ur Leukocyte Esterase Urine RBC Urine WBC Urine WBC Clumps Ur Squamous Epith Cells Ur Transition Epith Cell Ur Renal Epithelial Cell Amorphous Sediment Urine Bacteria Hyaline Casts Granular Casts Urine Mucus Micro UA Comment Urine Culture Comments Urine Eosinophils Urine Osmolality Ur Random Creatinine Ur Random Sodium Pleural pH Pleural WBC Pleural Nuc Cells Pleural RBC Pleural Neutrophils Pleural Eosinophils Pleural Lymphocytes Pleural Monocytes Pleural Histocytes Pleural Mesothelial Pleural Total Protein Pleural Amylase Pleural LDH Pleural Glucose Nasal Screen MRSA (PCR) Stl C.difficile Tox PCR St C. diff Tox Epid 027 Vancomycin Trough Random Vancomycin Phenytoin Free Phenytoin LOWELL Screen RPR Blood Type Antibody Screen MTS Gel Crossmatch Blood Bank Comment 01/08/18 01/08/18 01/08/18 06:34 11:53 17:04 WBC RBC Hgb Hct MCV MCH MCHC RDW Plt Count MPV Prelim Diff (Auto) Neut % (Auto) Lymph % (Auto) [place] % (Auto) Eos % (Auto) Baso % (Auto) Neut # (Auto) Lymph # (Auto) [place] # (Auto) Eos # (Auto) Baso # (Auto) CBC Comment WBC Differential Total Counted Neutrophils % (Manual) Seg Neuts % (Manual) Band Neutrophils % Band Neuts % (Manual) Lymphocytes % Lymphocytes % (Manual) Monocytes % Monocytes % (Manual) Eosinophils % Eosinophils % (Manual) Basophils % Metamyelocytes % (Man) Neutrophils # (Manual) Abs Neuts (Manual) Metamyelocytes Myelocytes Nucleated RBCs Differential Comment Smudge Cells Toxic Granulation Toxic Vacuolation Dohle Bodies Platelet Estimate Platelet Morphology Plt Morphology Comment Basophilic Stippling Spherocytes Tear Drop Cells Ovalocytes Acanthocytes (Spur) RBC Morph Comment ESR Hematology Comments PT INR APTT Fibrinogen Puncture Site Patient Temperature HCO3 Base Excess O2 Saturation ABG pH ABG pCO2 ABG pO2 ABG HCO3 ABG O2 Content ABG Base Excess ABG Carboxyhemoglobin ABG Methemoglobin Stepan Test Hemoglobin Carboxyhemoglobin O2 Delivery Device Liter Flow Vent Setting Inspired O2 Critical Value Sodium Potassium Chloride Carbon Dioxide Anion Gap BUN Creatinine Estimated GFR POC Glucose 180 H 149 H 171 H Random Glucose Hemoglobin A1c Lactic Acid Calcium Prot Corrected Calcium Phosphorus Magnesium Total Bilirubin Direct Bilirubin Indirect Bilirubin AST ALT Alkaline Phosphatase Ammonia Total Creatine Kinase Troponin I C-Reactive Protein B-Natriuretic Peptide Total Protein Albumin Prealbumin Triglycerides Cholesterol LDL Cholesterol HDL Cholesterol Cholesterol/HDL Ratio Thiamine Vitamin B12 Procalcitonin Free T4 TSH 3rd Generation Urine Color Urine Clarity Urine Turbidity Urine pH Ur Specific [place] Urine Protein Urine Glucose (UA) Urine Ketones Urine Occult Blood Urine Nitrate Urine Nitrite Urine Bilirubin Urine Urobilinogen Ur Leukocyte Esterase Urine RBC Urine WBC Urine WBC Clumps Ur Squamous Epith Cells Ur Transition Epith Cell Ur Renal Epithelial Cell Amorphous Sediment Urine Bacteria Hyaline Casts Granular Casts Urine Mucus Micro UA Comment Urine Culture Comments Urine Eosinophils Urine Osmolality Ur Random Creatinine Ur Random Sodium Pleural pH Pleural WBC Pleural Nuc Cells Pleural RBC Pleural Neutrophils Pleural Eosinophils Pleural Lymphocytes Pleural Monocytes Pleural Histocytes Pleural Mesothelial Pleural Total Protein Pleural Amylase Pleural LDH Pleural Glucose Nasal Screen MRSA (PCR) Stl C.difficile Tox PCR St C. diff Tox Epid 027 Vancomycin Trough Random Vancomycin Phenytoin Free Phenytoin LOWELL Screen RPR Blood Type Antibody Screen MTS Gel Crossmatch Blood Bank Comment 01/08/18 01/09/18 01/09/18 23:31 05:12 05:45 WBC RBC Hgb Hct MCV MCH MCHC RDW Plt Count MPV Prelim Diff (Auto) Neut % (Auto) Lymph % (Auto) [place] % (Auto) Eos % (Auto) Baso % (Auto) Neut # (Auto) Lymph # (Auto) [place] # (Auto) Eos # (Auto) Baso # (Auto) CBC Comment WBC Differential Total Counted Neutrophils % (Manual) Seg Neuts % (Manual) Band Neutrophils % Band Neuts % (Manual) Lymphocytes % Lymphocytes % (Manual) Monocytes % Monocytes % (Manual) Eosinophils % Eosinophils % (Manual) Basophils % Metamyelocytes % (Man) Neutrophils # (Manual) Abs Neuts (Manual) Metamyelocytes Myelocytes Nucleated RBCs Differential Comment Smudge Cells Toxic Granulation Toxic Vacuolation Dohle Bodies Platelet Estimate Platelet Morphology Plt Morphology Comment Basophilic Stippling Spherocytes Tear Drop Cells Ovalocytes Acanthocytes (Spur) RBC Morph Comment ESR Hematology Comments PT 22.1 H INR 2.2 APTT 55.2 H D Fibrinogen Puncture Site Patient Temperature HCO3 Base Excess O2 Saturation ABG pH ABG pCO2 ABG pO2 ABG HCO3 ABG O2 Content ABG Base Excess ABG Carboxyhemoglobin ABG Methemoglobin Stepan Test Hemoglobin Carboxyhemoglobin O2 Delivery Device Liter Flow Vent Setting Inspired O2 Critical Value Sodium Potassium Chloride Carbon Dioxide Anion Gap BUN Creatinine Estimated GFR POC Glucose 236 H 267 H Random Glucose Hemoglobin A1c Lactic Acid Calcium Prot Corrected Calcium Phosphorus Magnesium Total Bilirubin Direct Bilirubin Indirect Bilirubin AST ALT Alkaline Phosphatase Ammonia Total Creatine Kinase Troponin I C-Reactive Protein B-Natriuretic Peptide Total Protein Albumin Prealbumin Triglycerides Cholesterol LDL Cholesterol HDL Cholesterol Cholesterol/HDL Ratio Thiamine Vitamin B12 Procalcitonin Free T4 TSH 3rd Generation Urine Color Urine Clarity Urine Turbidity Urine pH Ur Specific [place] Urine Protein Urine Glucose (UA) Urine Ketones Urine Occult Blood Urine Nitrate Urine Nitrite Urine Bilirubin Urine Urobilinogen Ur Leukocyte Esterase Urine RBC Urine WBC Urine WBC Clumps Ur Squamous Epith Cells Ur Transition Epith Cell Ur Renal Epithelial Cell Amorphous Sediment Urine Bacteria Hyaline Casts Granular Casts Urine Mucus Micro UA Comment Urine Culture Comments Urine Eosinophils Urine Osmolality Ur Random Creatinine Ur Random Sodium Pleural pH Pleural WBC Pleural Nuc Cells Pleural RBC Pleural Neutrophils Pleural Eosinophils Pleural Lymphocytes Pleural Monocytes Pleural Histocytes Pleural Mesothelial Pleural Total Protein Pleural Amylase Pleural LDH Pleural Glucose Nasal Screen MRSA (PCR) Stl C.difficile Tox PCR St C. diff Tox Epid 027 Vancomycin Trough Random Vancomycin Phenytoin Free Phenytoin LOWELL Screen RPR Blood Type Antibody Screen MTS Gel Crossmatch Blood Bank Comment 01/09/18 01/09/18 01/09/18 10:25 12:00 12:15 WBC 17.0 H RBC 3.12 L Hgb 8.8 L Hct 28.6 L MCV 91.5 MCH 28.2 MCHC 30.8 L RDW 20.1 H Plt Count 418 MPV 8.8 Prelim Diff (Auto) Neut % (Auto) 72.1 H Lymph % (Auto) 20.3 [place] % (Auto) 6.7 Eos % (Auto) 0.3 Baso % (Auto) 0.6 Neut # (Auto) 12.3 H Lymph # (Auto) 3.5 [place] # (Auto) 1.1 H Eos # (Auto) 0.0 Baso # (Auto) 0.1 CBC Comment WBC Differential . Total Counted Neutrophils % (Manual) Seg Neuts % (Manual) Band Neutrophils % Band Neuts % (Manual) Lymphocytes % Lymphocytes % (Manual) Monocytes % Monocytes % (Manual) Eosinophils % Eosinophils % (Manual) Basophils % Metamyelocytes % (Man) Neutrophils # (Manual) Abs Neuts (Manual) Metamyelocytes Myelocytes Nucleated RBCs Differential Comment Auto diff final Smudge Cells Toxic Granulation Toxic Vacuolation Dohle Bodies Platelet Estimate Platelet Morphology Plt Morphology Comment Basophilic Stippling Spherocytes Tear Drop Cells Ovalocytes Acanthocytes (Spur) RBC Morph Comment ESR Hematology Comments PT INR APTT Fibrinogen Puncture Site Patient Temperature HCO3 Base Excess O2 Saturation ABG pH ABG pCO2 ABG pO2 ABG HCO3 ABG O2 Content ABG Base Excess ABG Carboxyhemoglobin ABG Methemoglobin Stepan Test Hemoglobin Carboxyhemoglobin O2 Delivery Device Liter Flow Vent Setting Inspired O2 Critical Value Sodium Potassium Chloride Carbon Dioxide Anion Gap BUN Creatinine Estimated GFR POC Glucose 243 H Random Glucose Hemoglobin A1c Lactic Acid Calcium Prot Corrected Calcium Phosphorus Magnesium Total Bilirubin Direct Bilirubin Indirect Bilirubin AST ALT Alkaline Phosphatase Ammonia Total Creatine Kinase Troponin I C-Reactive Protein B-Natriuretic Peptide Total Protein Albumin Prealbumin Triglycerides Cholesterol LDL Cholesterol HDL Cholesterol Cholesterol/HDL Ratio Thiamine Vitamin B12 Procalcitonin Free T4 TSH 3rd Generation Urine Color Yellow Urine Clarity Hazy H Urine Turbidity Urine pH 7.0 Ur Specific [place] 1.015 Urine Protein 100 H Urine Glucose (UA) 50 Urine Ketones Trace Urine Occult Blood Negative Urine Nitrate Negative Urine Nitrite Urine Bilirubin Negative Urine Urobilinogen 2.0 H Ur Leukocyte Esterase Large H Urine RBC 6 H Urine WBC 71 H Urine WBC Clumps Rare H Ur Squamous Epith Cells <1 Ur Transition Epith Cell Ur Renal Epithelial Cell Amorphous Sediment Urine Bacteria Occasional H Hyaline Casts Granular Casts Urine Mucus Few H Micro UA Comment Cath-culture ind Urine Culture Comments Cath-cult indicated Urine Eosinophils Urine Osmolality Ur Random Creatinine Ur Random Sodium Pleural pH Pleural WBC Pleural Nuc Cells Pleural RBC Pleural Neutrophils Pleural Eosinophils Pleural Lymphocytes Pleural Monocytes Pleural Histocytes Pleural Mesothelial Pleural Total Protein Pleural Amylase Pleural LDH Pleural Glucose Nasal Screen MRSA (PCR) Stl C.difficile Tox PCR St C. diff Tox Epid 027 Vancomycin Trough Random Vancomycin Phenytoin Free Phenytoin LOWELL Screen RPR Blood Type Antibody Screen MTS Gel Crossmatch Blood Bank Comment 01/09/18 01/09/18 01/09/18 15:45 17:45 19:44 WBC RBC Hgb Hct MCV MCH MCHC RDW Plt Count MPV Prelim Diff (Auto) Neut % (Auto) Lymph % (Auto) [place] % (Auto) Eos % (Auto) Baso % (Auto) Neut # (Auto) Lymph # (Auto) [place] # (Auto) Eos # (Auto) Baso # (Auto) CBC Comment WBC Differential Total Counted Neutrophils % (Manual) Seg Neuts % (Manual) Band Neutrophils % Band Neuts % (Manual) Lymphocytes % Lymphocytes % (Manual) Monocytes % Monocytes % (Manual) Eosinophils % Eosinophils % (Manual) Basophils % Metamyelocytes % (Man) Neutrophils # (Manual) Abs Neuts (Manual) Metamyelocytes Myelocytes Nucleated RBCs Differential Comment Smudge Cells Toxic Granulation Toxic Vacuolation Dohle Bodies Platelet Estimate Platelet Morphology Plt Morphology Comment Basophilic Stippling Spherocytes Tear Drop Cells Ovalocytes Acanthocytes (Spur) RBC Morph Comment ESR Hematology Comments PT INR APTT Fibrinogen Puncture Site Patient Temperature HCO3 Base Excess O2 Saturation ABG pH ABG pCO2 ABG pO2 ABG HCO3 ABG O2 Content ABG Base Excess ABG Carboxyhemoglobin ABG Methemoglobin Stepan Test Hemoglobin Carboxyhemoglobin O2 Delivery Device Liter Flow Vent Setting Inspired O2 Critical Value Sodium Potassium Chloride Carbon Dioxide Anion Gap BUN Creatinine Estimated GFR POC Glucose 229 H 228 H Random Glucose Hemoglobin A1c Lactic Acid Calcium Prot Corrected Calcium Phosphorus Magnesium Total Bilirubin Direct Bilirubin Indirect Bilirubin AST ALT Alkaline Phosphatase Ammonia Total Creatine Kinase Troponin I C-Reactive Protein B-Natriuretic Peptide Total Protein Albumin Prealbumin Triglycerides Cholesterol LDL Cholesterol HDL Cholesterol Cholesterol/HDL Ratio Thiamine Vitamin B12 Procalcitonin Free T4 TSH 3rd Generation Urine Color Yellow Urine Clarity Hazy H Urine Turbidity Urine pH 7.0 Ur Specific [place] 1.015 Urine Protein 100 H Urine Glucose (UA) 50 Urine Ketones Trace Urine Occult Blood Negative Urine Nitrate Negative Urine Nitrite Urine Bilirubin Negative Urine Urobilinogen 2.0 H Ur Leukocyte Esterase Moderate H Urine RBC 4 H Urine WBC 44 H Urine WBC Clumps Ur Squamous Epith Cells Ur Transition Epith Cell Ur Renal Epithelial Cell Amorphous Sediment Urine Bacteria Few H Hyaline Casts Granular Casts Urine Mucus Few H Micro UA Comment Urine Culture Comments Urine Eosinophils Urine Osmolality Ur Random Creatinine Ur Random Sodium Pleural pH Pleural WBC Pleural Nuc Cells Pleural RBC Pleural Neutrophils Pleural Eosinophils Pleural Lymphocytes Pleural Monocytes Pleural Histocytes Pleural Mesothelial Pleural Total Protein Pleural Amylase Pleural LDH Pleural Glucose Nasal Screen MRSA (PCR) Stl C.difficile Tox PCR St C. diff Tox Epid 027 Vancomycin Trough Random Vancomycin Phenytoin Free Phenytoin LOWELL Screen RPR Blood Type Antibody Screen MTS Gel Crossmatch Blood Bank Comment 01/10/18 01/10/18 01/10/18 00:08 06:19 06:35 WBC RBC Hgb Hct MCV MCH MCHC RDW Plt Count MPV Prelim Diff (Auto) Neut % (Auto) Lymph % (Auto) [place] % (Auto) Eos % (Auto) Baso % (Auto) Neut # (Auto) Lymph # (Auto) [place] # (Auto) Eos # (Auto) Baso # (Auto) CBC Comment WBC Differential Total Counted Neutrophils % (Manual) Seg Neuts % (Manual) Band Neutrophils % Band Neuts % (Manual) Lymphocytes % Lymphocytes % (Manual) Monocytes % Monocytes % (Manual) Eosinophils % Eosinophils % (Manual) Basophils % Metamyelocytes % (Man) Neutrophils # (Manual) Abs Neuts (Manual) Metamyelocytes Myelocytes Nucleated RBCs Differential Comment Smudge Cells Toxic Granulation Toxic Vacuolation Dohle Bodies Platelet Estimate Platelet Morphology Plt Morphology Comment Basophilic Stippling Spherocytes Tear Drop Cells Ovalocytes Acanthocytes (Spur) RBC Morph Comment ESR Hematology Comments PT INR APTT Fibrinogen Puncture Site Patient Temperature HCO3 Base Excess O2 Saturation ABG pH ABG pCO2 ABG pO2 ABG HCO3 ABG O2 Content ABG Base Excess ABG Carboxyhemoglobin ABG Methemoglobin Stepan Test Hemoglobin Carboxyhemoglobin O2 Delivery Device Liter Flow Vent Setting Inspired O2 Critical Value Sodium 146 H Potassium 5.1 Chloride 113 H Carbon Dioxide 24.9 Anion Gap 8 BUN 50 H Creatinine 1.47 H Estimated GFR 46 L POC Glucose 231 H 227 H Random Glucose 196 H Hemoglobin A1c Lactic Acid Calcium 8.3 L Prot Corrected Calcium Phosphorus Magnesium Total Bilirubin 0.4 Direct Bilirubin Indirect Bilirubin AST 33 ALT 23 Alkaline Phosphatase 163 H Ammonia Total Creatine Kinase Troponin I C-Reactive Protein B-Natriuretic Peptide Total Protein 7.8 D Albumin 1.3 L Prealbumin Triglycerides Cholesterol LDL Cholesterol HDL Cholesterol Cholesterol/HDL Ratio Thiamine Vitamin B12 Procalcitonin Free T4 TSH 3rd Generation Urine Color Urine Clarity Urine Turbidity Urine pH Ur Specific [place] Urine Protein Urine Glucose (UA) Urine Ketones Urine Occult Blood Urine Nitrate Urine Nitrite Urine Bilirubin Urine Urobilinogen Ur Leukocyte Esterase Urine RBC Urine WBC Urine WBC Clumps Ur Squamous Epith Cells Ur Transition Epith Cell Ur Renal Epithelial Cell Amorphous Sediment Urine Bacteria Hyaline Casts Granular Casts Urine Mucus Micro UA Comment Urine Culture Comments Urine Eosinophils Urine Osmolality Ur Random Creatinine Ur Random Sodium Pleural pH Pleural WBC Pleural Nuc Cells Pleural RBC Pleural Neutrophils Pleural Eosinophils Pleural Lymphocytes Pleural Monocytes Pleural Histocytes Pleural Mesothelial Pleural Total Protein Pleural Amylase Pleural LDH Pleural Glucose Nasal Screen MRSA (PCR) Stl C.difficile Tox PCR St C. diff Tox Epid 027 Vancomycin Trough Random Vancomycin Phenytoin Free Phenytoin LOWELL Screen RPR Blood Type Antibody Screen MTS Gel Crossmatch Blood Bank Comment 01/10/18 01/10/18 01/10/18 06:38 06:38 11:10 WBC 15.6 H RBC 3.07 L Hgb 8.7 L Hct 28.0 L MCV 91.2 MCH 28.5 MCHC 31.3 L RDW 20.7 H Plt Count 433 MPV 9.2 Prelim Diff (Auto) Neut % (Auto) 67.3 Lymph % (Auto) 24.4 [place] % (Auto) 7.3 Eos % (Auto) 0.6 Baso % (Auto) 0.4 Neut # (Auto) 10.5 H Lymph # (Auto) 3.8 [place] # (Auto) 1.1 H Eos # (Auto) 0.1 Baso # (Auto) 0.1 CBC Comment WBC Differential . Total Counted Neutrophils % (Manual) Seg Neuts % (Manual) Band Neutrophils % Band Neuts % (Manual) Lymphocytes % Lymphocytes % (Manual) Monocytes % Monocytes % (Manual) Eosinophils % Eosinophils % (Manual) Basophils % Metamyelocytes % (Man) Neutrophils # (Manual) Abs Neuts (Manual) Metamyelocytes Myelocytes Nucleated RBCs Differential Comment Auto diff final Smudge Cells Toxic Granulation Toxic Vacuolation Dohle Bodies Platelet Estimate Platelet Morphology Plt Morphology Comment Basophilic Stippling Spherocytes Tear Drop Cells Ovalocytes Acanthocytes (Spur) RBC Morph Comment ESR Hematology Comments PT 22.7 H INR 2.2 APTT 55.3 H Fibrinogen Puncture Site Patient Temperature HCO3 Base Excess O2 Saturation ABG pH ABG pCO2 ABG pO2 ABG HCO3 ABG O2 Content ABG Base Excess ABG Carboxyhemoglobin ABG Methemoglobin Stepan Test Hemoglobin Carboxyhemoglobin O2 Delivery Device Liter Flow Vent Setting Inspired O2 Critical Value Sodium Potassium Chloride Carbon Dioxide Anion Gap BUN Creatinine Estimated GFR POC Glucose 241 H Random Glucose Hemoglobin A1c Lactic Acid Calcium Prot Corrected Calcium Phosphorus Magnesium Total Bilirubin Direct Bilirubin Indirect Bilirubin AST ALT Alkaline Phosphatase Ammonia Total Creatine Kinase Troponin I C-Reactive Protein B-Natriuretic Peptide Total Protein Albumin Prealbumin Triglycerides Cholesterol LDL Cholesterol HDL Cholesterol Cholesterol/HDL Ratio Thiamine Vitamin B12 Procalcitonin Free T4 TSH 3rd Generation Urine Color Urine Clarity Urine Turbidity Urine pH Ur Specific [place] Urine Protein Urine Glucose (UA) Urine Ketones Urine Occult Blood Urine Nitrate Urine Nitrite Urine Bilirubin Urine Urobilinogen Ur Leukocyte Esterase Urine RBC Urine WBC Urine WBC Clumps Ur Squamous Epith Cells Ur Transition Epith Cell Ur Renal Epithelial Cell Amorphous Sediment Urine Bacteria Hyaline Casts Granular Casts Urine Mucus Micro UA Comment Urine Culture Comments Urine Eosinophils Urine Osmolality Ur Random Creatinine Ur Random Sodium Pleural pH Pleural WBC Pleural Nuc Cells Pleural RBC Pleural Neutrophils Pleural Eosinophils Pleural Lymphocytes Pleural Monocytes Pleural Histocytes Pleural Mesothelial Pleural Total Protein Pleural Amylase Pleural LDH Pleural Glucose Nasal Screen MRSA (PCR) Stl C.difficile Tox PCR St C. diff Tox Epid 027 Vancomycin Trough Random Vancomycin Phenytoin Free Phenytoin LOWELL Screen RPR Blood Type Antibody Screen MTS Gel Crossmatch Blood Bank Comment 01/10/18 01/10/18 01/10/18 18:04 20:15 23:41 WBC RBC Hgb Hct MCV MCH MCHC RDW Plt Count MPV Prelim Diff (Auto) Neut % (Auto) Lymph % (Auto) [place] % (Auto) Eos % (Auto) Baso % (Auto) Neut # (Auto) Lymph # (Auto) [place] # (Auto) Eos # (Auto) Baso # (Auto) CBC Comment WBC Differential Total Counted Neutrophils % (Manual) Seg Neuts % (Manual) Band Neutrophils % Band Neuts % (Manual) Lymphocytes % Lymphocytes % (Manual) Monocytes % Monocytes % (Manual) Eosinophils % Eosinophils % (Manual) Basophils % Metamyelocytes % (Man) Neutrophils # (Manual) Abs Neuts (Manual) Metamyelocytes Myelocytes Nucleated RBCs Differential Comment Smudge Cells Toxic Granulation Toxic Vacuolation Dohle Bodies Platelet Estimate Platelet Morphology Plt Morphology Comment Basophilic Stippling Spherocytes Tear Drop Cells Ovalocytes Acanthocytes (Spur) RBC Morph Comment ESR Hematology Comments PT INR APTT Fibrinogen Puncture Site Patient Temperature HCO3 Base Excess O2 Saturation ABG pH ABG pCO2 ABG pO2 ABG HCO3 ABG O2 Content ABG Base Excess ABG Carboxyhemoglobin ABG Methemoglobin Stepan Test Hemoglobin Carboxyhemoglobin O2 Delivery Device Liter Flow Vent Setting Inspired O2 Critical Value Sodium Potassium Chloride Carbon Dioxide Anion Gap BUN Creatinine Estimated GFR POC Glucose 222 H 181 H Random Glucose Hemoglobin A1c Lactic Acid Calcium Prot Corrected Calcium Phosphorus Magnesium Total Bilirubin Direct Bilirubin Indirect Bilirubin AST ALT Alkaline Phosphatase Ammonia Total Creatine Kinase Troponin I C-Reactive Protein B-Natriuretic Peptide Total Protein Albumin Prealbumin Triglycerides Cholesterol LDL Cholesterol HDL Cholesterol Cholesterol/HDL Ratio Thiamine Vitamin B12 Procalcitonin Free T4 TSH 3rd Generation Urine Color [place] Urine Clarity Cloudy H Urine Turbidity Urine pH 5.0 Ur Specific [place] 1.018 Urine Protein 100 H Urine Glucose (UA) 50 Urine Ketones Trace Urine Occult Blood Negative Urine Nitrate Negative Urine Nitrite Urine Bilirubin Negative Urine Urobilinogen 4 or greater Ur Leukocyte Esterase Large H Urine RBC 2 Urine WBC 88 H Urine WBC Clumps Rare H Ur Squamous Epith Cells Ur Transition Epith Cell Ur Renal Epithelial Cell Amorphous Sediment Urine Bacteria Occasional H Hyaline Casts Granular Casts Urine Mucus Micro UA Comment Cath-culture ind Urine Culture Comments Cath-cult indicated Urine Eosinophils Urine Osmolality Ur Random Creatinine Ur Random Sodium Pleural pH Pleural WBC Pleural Nuc Cells Pleural RBC Pleural Neutrophils Pleural Eosinophils Pleural Lymphocytes Pleural Monocytes Pleural Histocytes Pleural Mesothelial Pleural Total Protein Pleural Amylase Pleural LDH Pleural Glucose Nasal Screen MRSA (PCR) Stl C.difficile Tox PCR St C. diff Tox Epid 027 Vancomycin Trough Random Vancomycin Phenytoin Free Phenytoin LOWELL Screen RPR Blood Type Antibody Screen MTS Gel Crossmatch Blood Bank Comment 01/11/18 01/11/18 01/11/18 05:51 07:00 14:03 WBC RBC Hgb Hct MCV MCH MCHC RDW Plt Count MPV Prelim Diff (Auto) Neut % (Auto) Lymph % (Auto) [place] % (Auto) Eos % (Auto) Baso % (Auto) Neut # (Auto) Lymph # (Auto) [place] # (Auto) Eos # (Auto) Baso # (Auto) CBC Comment WBC Differential Total Counted Neutrophils % (Manual) Seg Neuts % (Manual) Band Neutrophils % Band Neuts % (Manual) Lymphocytes % Lymphocytes % (Manual) Monocytes % Monocytes % (Manual) Eosinophils % Eosinophils % (Manual) Basophils % Metamyelocytes % (Man) Neutrophils # (Manual) Abs Neuts (Manual) Metamyelocytes Myelocytes Nucleated RBCs Differential Comment Smudge Cells Toxic Granulation Toxic Vacuolation Dohle Bodies Platelet Estimate Platelet Morphology Plt Morphology Comment Basophilic Stippling Spherocytes Tear Drop Cells Ovalocytes Acanthocytes (Spur) RBC Morph Comment ESR Hematology Comments PT 23.4 H INR 2.3 APTT 37.4 H D Fibrinogen Puncture Site Patient Temperature HCO3 Base Excess O2 Saturation ABG pH ABG pCO2 ABG pO2 ABG HCO3 ABG O2 Content ABG Base Excess ABG Carboxyhemoglobin ABG Methemoglobin Stepan Test Hemoglobin Carboxyhemoglobin O2 Delivery Device Liter Flow Vent Setting Inspired O2 Critical Value Sodium Potassium Chloride Carbon Dioxide Anion Gap BUN Creatinine Estimated GFR POC Glucose 214 H 251 H Random Glucose Hemoglobin A1c Lactic Acid Calcium Prot Corrected Calcium Phosphorus Magnesium Total Bilirubin Direct Bilirubin Indirect Bilirubin AST ALT Alkaline Phosphatase Ammonia Total Creatine Kinase Troponin I C-Reactive Protein B-Natriuretic Peptide Total Protein Albumin Prealbumin Triglycerides Cholesterol LDL Cholesterol HDL Cholesterol Cholesterol/HDL Ratio Thiamine Vitamin B12 Procalcitonin Free T4 TSH 3rd Generation Urine Color Urine Clarity Urine Turbidity Urine pH Ur Specific [place] Urine Protein Urine Glucose (UA) Urine Ketones Urine Occult Blood Urine Nitrate Urine Nitrite Urine Bilirubin Urine Urobilinogen Ur Leukocyte Esterase Urine RBC Urine WBC Urine WBC Clumps Ur Squamous Epith Cells Ur Transition Epith Cell Ur Renal Epithelial Cell Amorphous Sediment Urine Bacteria Hyaline Casts Granular Casts Urine Mucus Micro UA Comment Urine Culture Comments Urine Eosinophils Urine Osmolality Ur Random Creatinine Ur Random Sodium Pleural pH Pleural WBC Pleural Nuc Cells Pleural RBC Pleural Neutrophils Pleural Eosinophils Pleural Lymphocytes Pleural Monocytes Pleural Histocytes Pleural Mesothelial Pleural Total Protein Pleural Amylase Pleural LDH Pleural Glucose Nasal Screen MRSA (PCR) Stl C.difficile Tox PCR St C. diff Tox Epid 027 Vancomycin Trough Random Vancomycin Phenytoin Free Phenytoin LOWELL Screen RPR Blood Type Antibody Screen MTS Gel Crossmatch Blood Bank Comment 01/11/18 01/12/18 01/12/18 17:46 01:01 05:29 WBC RBC Hgb Hct MCV MCH MCHC RDW Plt Count MPV Prelim Diff (Auto) Neut % (Auto) Lymph % (Auto) [place] % (Auto) Eos % (Auto) Baso % (Auto) Neut # (Auto) Lymph # (Auto) [place] # (Auto) Eos # (Auto) Baso # (Auto) CBC Comment WBC Differential Total Counted Neutrophils % (Manual) Seg Neuts % (Manual) Band Neutrophils % Band Neuts % (Manual) Lymphocytes % Lymphocytes % (Manual) Monocytes % Monocytes % (Manual) Eosinophils % Eosinophils % (Manual) Basophils % Metamyelocytes % (Man) Neutrophils # (Manual) Abs Neuts (Manual) Metamyelocytes Myelocytes Nucleated RBCs Differential Comment Smudge Cells Toxic Granulation Toxic Vacuolation Dohle Bodies Platelet Estimate Platelet Morphology Plt Morphology Comment Basophilic Stippling Spherocytes Tear Drop Cells Ovalocytes Acanthocytes (Spur) RBC Morph Comment ESR Hematology Comments PT 28.3 H INR 2.8 APTT 40.6 H Fibrinogen Puncture Site Patient Temperature HCO3 Base Excess O2 Saturation ABG pH ABG pCO2 ABG pO2 ABG HCO3 ABG O2 Content ABG Base Excess ABG Carboxyhemoglobin ABG Methemoglobin Stepan Test Hemoglobin Carboxyhemoglobin O2 Delivery Device Liter Flow Vent Setting Inspired O2 Critical Value Sodium Potassium Chloride Carbon Dioxide Anion Gap BUN Creatinine Estimated GFR POC Glucose 266 H 180 H Random Glucose Hemoglobin A1c Lactic Acid Calcium Prot Corrected Calcium Phosphorus Magnesium Total Bilirubin Direct Bilirubin Indirect Bilirubin AST ALT Alkaline Phosphatase Ammonia Total Creatine Kinase Troponin I C-Reactive Protein B-Natriuretic Peptide Total Protein Albumin Prealbumin Triglycerides Cholesterol LDL Cholesterol HDL Cholesterol Cholesterol/HDL Ratio Thiamine Vitamin B12 Procalcitonin Free T4 TSH 3rd Generation Urine Color Urine Clarity Urine Turbidity Urine pH Ur Specific [place] Urine Protein Urine Glucose (UA) Urine Ketones Urine Occult Blood Urine Nitrate Urine Nitrite Urine Bilirubin Urine Urobilinogen Ur Leukocyte Esterase Urine RBC Urine WBC Urine WBC Clumps Ur Squamous Epith Cells Ur Transition Epith Cell Ur Renal Epithelial Cell Amorphous Sediment Urine Bacteria Hyaline Casts Granular Casts Urine Mucus Micro UA Comment Urine Culture Comments Urine Eosinophils Urine Osmolality Ur Random Creatinine Ur Random Sodium Pleural pH Pleural WBC Pleural Nuc Cells Pleural RBC Pleural Neutrophils Pleural Eosinophils Pleural Lymphocytes Pleural Monocytes Pleural Histocytes Pleural Mesothelial Pleural Total Protein Pleural Amylase Pleural LDH Pleural Glucose Nasal Screen MRSA (PCR) Stl C.difficile Tox PCR St C. diff Tox Epid 027 Vancomycin Trough Random Vancomycin Phenytoin Free Phenytoin LOWELL Screen RPR Blood Type Antibody Screen MTS Gel Crossmatch Blood Bank Comment 01/12/18 01/12/18 01/12/18 05:29 05:29 05:43 WBC 11.7 H RBC 2.81 L Hgb 8.0 L Hct 25.3 L MCV 90.1 MCH 28.5 MCHC 31.6 L RDW 19.9 H Plt Count 382 MPV 8.9 Prelim Diff (Auto) Neut % (Auto) 59.6 Lymph % (Auto) 27.9 [place] % (Auto) 8.6 H Eos % (Auto) 3.3 Baso % (Auto) 0.6 Neut # (Auto) 7.0 Lymph # (Auto) 3.3 [place] # (Auto) 1.0 H Eos # (Auto) 0.4 Baso # (Auto) 0.1 CBC Comment WBC Differential . Total Counted Neutrophils % (Manual) Seg Neuts % (Manual) Band Neutrophils % Band Neuts % (Manual) Lymphocytes % Lymphocytes % (Manual) Monocytes % Monocytes % (Manual) Eosinophils % Eosinophils % (Manual) Basophils % Metamyelocytes % (Man) Neutrophils # (Manual) Abs Neuts (Manual) Metamyelocytes Myelocytes Nucleated RBCs Differential Comment Auto diff final Smudge Cells Toxic Granulation Toxic Vacuolation Dohle Bodies Platelet Estimate Platelet Morphology Plt Morphology Comment Basophilic Stippling Spherocytes Tear Drop Cells Ovalocytes Acanthocytes (Spur) RBC Morph Comment ESR Hematology Comments PT INR APTT Fibrinogen Puncture Site Patient Temperature HCO3 Base Excess O2 Saturation ABG pH ABG pCO2 ABG pO2 ABG HCO3 ABG O2 Content ABG Base Excess ABG Carboxyhemoglobin ABG Methemoglobin Stepan Test Hemoglobin Carboxyhemoglobin O2 Delivery Device Liter Flow Vent Setting Inspired O2 Critical Value Sodium 151 H Potassium 5.0 Chloride 117 H Carbon Dioxide 25.1 Anion Gap 9 BUN 59 H Creatinine 1.41 H Estimated GFR 49 L POC Glucose 177 H Random Glucose 161 H Hemoglobin A1c Lactic Acid Calcium 8.9 Prot Corrected Calcium Phosphorus Magnesium Total Bilirubin Direct Bilirubin Indirect Bilirubin AST ALT Alkaline Phosphatase Ammonia Total Creatine Kinase Troponin I C-Reactive Protein B-Natriuretic Peptide Total Protein Albumin Prealbumin Triglycerides Cholesterol LDL Cholesterol HDL Cholesterol Cholesterol/HDL Ratio Thiamine Vitamin B12 Procalcitonin Free T4 TSH 3rd Generation Urine Color Urine Clarity Urine Turbidity Urine pH Ur Specific [place] Urine Protein Urine Glucose (UA) Urine Ketones Urine Occult Blood Urine Nitrate Urine Nitrite Urine Bilirubin Urine Urobilinogen Ur Leukocyte Esterase Urine RBC Urine WBC Urine WBC Clumps Ur Squamous Epith Cells Ur Transition Epith Cell Ur Renal Epithelial Cell Amorphous Sediment Urine Bacteria Hyaline Casts Granular Casts Urine Mucus Micro UA Comment Urine Culture Comments Urine Eosinophils Urine Osmolality Ur Random Creatinine Ur Random Sodium Pleural pH Pleural WBC Pleural Nuc Cells Pleural RBC Pleural Neutrophils Pleural Eosinophils Pleural Lymphocytes Pleural Monocytes Pleural Histocytes Pleural Mesothelial Pleural Total Protein Pleural Amylase Pleural LDH Pleural Glucose Nasal Screen MRSA (PCR) Stl C.difficile Tox PCR St C. diff Tox Epid 027 Vancomycin Trough Random Vancomycin Phenytoin Free Phenytoin LOWELL Screen RPR Blood Type Antibody Screen MTS Gel Crossmatch Blood Bank Comment 01/12/18 01/13/18 01/13/18 17:51 00:33 05:26 WBC RBC Hgb Hct MCV MCH MCHC RDW Plt Count MPV Prelim Diff (Auto) Neut % (Auto) Lymph % (Auto) [place] % (Auto) Eos % (Auto) Baso % (Auto) Neut # (Auto) Lymph # (Auto) [place] # (Auto) Eos # (Auto) Baso # (Auto) CBC Comment WBC Differential Total Counted Neutrophils % (Manual) Seg Neuts % (Manual) Band Neutrophils % Band Neuts % (Manual) Lymphocytes % Lymphocytes % (Manual) Monocytes % Monocytes % (Manual) Eosinophils % Eosinophils % (Manual) Basophils % Metamyelocytes % (Man) Neutrophils # (Manual) Abs Neuts (Manual) Metamyelocytes Myelocytes Nucleated RBCs Differential Comment Smudge Cells Toxic Granulation Toxic Vacuolation Dohle Bodies Platelet Estimate Platelet Morphology Plt Morphology Comment Basophilic Stippling Spherocytes Tear Drop Cells Ovalocytes Acanthocytes (Spur) RBC Morph Comment ESR Hematology Comments PT 26.9 H INR 2.7 APTT 39.2 H Fibrinogen Puncture Site Patient Temperature HCO3 Base Excess O2 Saturation ABG pH ABG pCO2 ABG pO2 ABG HCO3 ABG O2 Content ABG Base Excess ABG Carboxyhemoglobin ABG Methemoglobin Stepan Test Hemoglobin Carboxyhemoglobin O2 Delivery Device Liter Flow Vent Setting Inspired O2 Critical Value Sodium Potassium Chloride Carbon Dioxide Anion Gap BUN Creatinine Estimated GFR POC Glucose 289 H 260 H Random Glucose Hemoglobin A1c Lactic Acid Calcium Prot Corrected Calcium Phosphorus Magnesium Total Bilirubin Direct Bilirubin Indirect Bilirubin AST ALT Alkaline Phosphatase Ammonia Total Creatine Kinase Troponin I C-Reactive Protein B-Natriuretic Peptide Total Protein Albumin Prealbumin Triglycerides Cholesterol LDL Cholesterol HDL Cholesterol Cholesterol/HDL Ratio Thiamine Vitamin B12 Procalcitonin Free T4 TSH 3rd Generation Urine Color Urine Clarity Urine Turbidity Urine pH Ur Specific [place] Urine Protein Urine Glucose (UA) Urine Ketones Urine Occult Blood Urine Nitrate Urine Nitrite Urine Bilirubin Urine Urobilinogen Ur Leukocyte Esterase Urine RBC Urine WBC Urine WBC Clumps Ur Squamous Epith Cells Ur Transition Epith Cell Ur Renal Epithelial Cell Amorphous Sediment Urine Bacteria Hyaline Casts Granular Casts Urine Mucus Micro UA Comment Urine Culture Comments Urine Eosinophils Urine Osmolality Ur Random Creatinine Ur Random Sodium Pleural pH Pleural WBC Pleural Nuc Cells Pleural RBC Pleural Neutrophils Pleural Eosinophils Pleural Lymphocytes Pleural Monocytes Pleural Histocytes Pleural Mesothelial Pleural Total Protein Pleural Amylase Pleural LDH Pleural Glucose Nasal Screen MRSA (PCR) Stl C.difficile Tox PCR St C. diff Tox Epid 027 Vancomycin Trough Random Vancomycin Phenytoin Free Phenytoin LOWELL Screen RPR Blood Type Antibody Screen MTS Gel Crossmatch Blood Bank Comment 01/13/18 01/13/18 01/13/18 05:26 06:33 12:52 WBC RBC Hgb Hct MCV MCH MCHC RDW Plt Count MPV Prelim Diff (Auto) Neut % (Auto) Lymph % (Auto) [place] % (Auto) Eos % (Auto) Baso % (Auto) Neut # (Auto) Lymph # (Auto) [place] # (Auto) Eos # (Auto) Baso # (Auto) CBC Comment WBC Differential Total Counted Neutrophils % (Manual) Seg Neuts % (Manual) Band Neutrophils % Band Neuts % (Manual) Lymphocytes % Lymphocytes % (Manual) Monocytes % Monocytes % (Manual) Eosinophils % Eosinophils % (Manual) Basophils % Metamyelocytes % (Man) Neutrophils # (Manual) Abs Neuts (Manual) Metamyelocytes Myelocytes Nucleated RBCs Differential Comment Smudge Cells Toxic Granulation Toxic Vacuolation Dohle Bodies Platelet Estimate Platelet Morphology Plt Morphology Comment Basophilic Stippling Spherocytes Tear Drop Cells Ovalocytes Acanthocytes (Spur) RBC Morph Comment ESR Hematology Comments PT INR APTT Fibrinogen Puncture Site Patient Temperature HCO3 Base Excess O2 Saturation ABG pH ABG pCO2 ABG pO2 ABG HCO3 ABG O2 Content ABG Base Excess ABG Carboxyhemoglobin ABG Methemoglobin Stepan Test Hemoglobin Carboxyhemoglobin O2 Delivery Device Liter Flow Vent Setting Inspired O2 Critical Value Sodium 152 H Potassium 5.2 H Chloride 118 H Carbon Dioxide 25.8 Anion Gap 8 BUN 61 H Creatinine 1.59 H Estimated GFR 42 L POC Glucose 222 H 258 H Random Glucose 203 H Hemoglobin A1c Lactic Acid Calcium 8.6 Prot Corrected Calcium Phosphorus Magnesium Total Bilirubin Direct Bilirubin Indirect Bilirubin AST ALT Alkaline Phosphatase Ammonia Total Creatine Kinase Troponin I C-Reactive Protein B-Natriuretic Peptide Total Protein Albumin Prealbumin Triglycerides Cholesterol LDL Cholesterol HDL Cholesterol Cholesterol/HDL Ratio Thiamine Vitamin B12 Procalcitonin Free T4 TSH 3rd Generation Urine Color Urine Clarity Urine Turbidity Urine pH Ur Specific [place] Urine Protein Urine Glucose (UA) Urine Ketones Urine Occult Blood Urine Nitrate Urine Nitrite Urine Bilirubin Urine Urobilinogen Ur Leukocyte Esterase Urine RBC Urine WBC Urine WBC Clumps Ur Squamous Epith Cells Ur Transition Epith Cell Ur Renal Epithelial Cell Amorphous Sediment Urine Bacteria Hyaline Casts Granular Casts Urine Mucus Micro UA Comment Urine Culture Comments Urine Eosinophils Urine Osmolality Ur Random Creatinine Ur Random Sodium Pleural pH Pleural WBC Pleural Nuc Cells Pleural RBC Pleural Neutrophils Pleural Eosinophils Pleural Lymphocytes Pleural Monocytes Pleural Histocytes Pleural Mesothelial Pleural Total Protein Pleural Amylase Pleural LDH Pleural Glucose Nasal Screen MRSA (PCR) Stl C.difficile Tox PCR St C. diff Tox Epid 027 Vancomycin Trough Random Vancomycin Phenytoin Free Phenytoin LOWELL Screen RPR Blood Type Antibody Screen MTS Gel Crossmatch Blood Bank Comment 01/13/18 01/13/18 01/14/18 16:48 23:42 05:50 WBC RBC Hgb Hct MCV MCH MCHC RDW Plt Count MPV Prelim Diff (Auto) Neut % (Auto) Lymph % (Auto) [place] % (Auto) Eos % (Auto) Baso % (Auto) Neut # (Auto) Lymph # (Auto) [place] # (Auto) Eos # (Auto) Baso # (Auto) CBC Comment WBC Differential Total Counted Neutrophils % (Manual) Seg Neuts % (Manual) Band Neutrophils % Band Neuts % (Manual) Lymphocytes % Lymphocytes % (Manual) Monocytes % Monocytes % (Manual) Eosinophils % Eosinophils % (Manual) Basophils % Metamyelocytes % (Man) Neutrophils # (Manual) Abs Neuts (Manual) Metamyelocytes Myelocytes Nucleated RBCs Differential Comment Smudge Cells Toxic Granulation Toxic Vacuolation Dohle Bodies Platelet Estimate Platelet Morphology Plt Morphology Comment Basophilic Stippling Spherocytes Tear Drop Cells Ovalocytes Acanthocytes (Spur) RBC Morph Comment ESR Hematology Comments PT INR APTT Fibrinogen Puncture Site Patient Temperature HCO3 Base Excess O2 Saturation ABG pH ABG pCO2 ABG pO2 ABG HCO3 ABG O2 Content ABG Base Excess ABG Carboxyhemoglobin ABG Methemoglobin Stepan Test Hemoglobin Carboxyhemoglobin O2 Delivery Device Liter Flow Vent Setting Inspired O2 Critical Value Sodium Potassium Chloride Carbon Dioxide Anion Gap BUN Creatinine Estimated GFR POC Glucose 204 H 222 H 242 H Random Glucose Hemoglobin A1c Lactic Acid Calcium Prot Corrected Calcium Phosphorus Magnesium Total Bilirubin Direct Bilirubin Indirect Bilirubin AST ALT Alkaline Phosphatase Ammonia Total Creatine Kinase Troponin I C-Reactive Protein B-Natriuretic Peptide Total Protein Albumin Prealbumin Triglycerides Cholesterol LDL Cholesterol HDL Cholesterol Cholesterol/HDL Ratio Thiamine Vitamin B12 Procalcitonin Free T4 TSH 3rd Generation Urine Color Urine Clarity Urine Turbidity Urine pH Ur Specific [place] Urine Protein Urine Glucose (UA) Urine Ketones Urine Occult Blood Urine Nitrate Urine Nitrite Urine Bilirubin Urine Urobilinogen Ur Leukocyte Esterase Urine RBC Urine WBC Urine WBC Clumps Ur Squamous Epith Cells Ur Transition Epith Cell Ur Renal Epithelial Cell Amorphous Sediment Urine Bacteria Hyaline Casts Granular Casts Urine Mucus Micro UA Comment Urine Culture Comments Urine Eosinophils Urine Osmolality Ur Random Creatinine Ur Random Sodium Pleural pH Pleural WBC Pleural Nuc Cells Pleural RBC Pleural Neutrophils Pleural Eosinophils Pleural Lymphocytes Pleural Monocytes Pleural Histocytes Pleural Mesothelial Pleural Total Protein Pleural Amylase Pleural LDH Pleural Glucose Nasal Screen MRSA (PCR) Stl C.difficile Tox PCR St C. diff Tox Epid 027 Vancomycin Trough Random Vancomycin Phenytoin Free Phenytoin LOWELL Screen RPR Blood Type Antibody Screen MTS Gel Crossmatch Blood Bank Comment 01/14/18 01/14/18 01/14/18 08:45 08:45 08:45 WBC 13.5 H RBC 3.05 L Hgb 8.5 L Hct 27.5 L MCV 90.1 MCH 28.0 MCHC 31.1 L RDW 20.2 H Plt Count 426 MPV 9.0 Prelim Diff (Auto) Neut % (Auto) Lymph % (Auto) [place] % (Auto) Eos % (Auto) Baso % (Auto) Neut # (Auto) Lymph # (Auto) [place] # (Auto) Eos # (Auto) Baso # (Auto) CBC Comment WBC Differential Total Counted Neutrophils % (Manual) Seg Neuts % (Manual) Band Neutrophils % Band Neuts % (Manual) Lymphocytes % Lymphocytes % (Manual) Monocytes % Monocytes % (Manual) Eosinophils % Eosinophils % (Manual) Basophils % Metamyelocytes % (Man) Neutrophils # (Manual) Abs Neuts (Manual) Metamyelocytes Myelocytes Nucleated RBCs Differential Comment Smudge Cells Toxic Granulation Toxic Vacuolation Dohle Bodies Platelet Estimate Platelet Morphology Plt Morphology Comment Basophilic Stippling Spherocytes Tear Drop Cells Ovalocytes Acanthocytes (Spur) RBC Morph Comment ESR Hematology Comments PT 20.7 H INR 2.0 APTT 35.9 H Fibrinogen Puncture Site Patient Temperature HCO3 Base Excess O2 Saturation ABG pH ABG pCO2 ABG pO2 ABG HCO3 ABG O2 Content ABG Base Excess ABG Carboxyhemoglobin ABG Methemoglobin Stepan Test Hemoglobin Carboxyhemoglobin O2 Delivery Device Liter Flow Vent Setting Inspired O2 Critical Value Sodium 153 H Potassium 5.5 H Chloride 120 H Carbon Dioxide 24.0 Anion Gap 9 BUN 57 H Creatinine 1.58 H Estimated GFR 43 L POC Glucose Random Glucose 207 H Hemoglobin A1c Lactic Acid Calcium 8.4 L Prot Corrected Calcium Phosphorus Magnesium Total Bilirubin Direct Bilirubin Indirect Bilirubin AST ALT Alkaline Phosphatase Ammonia Total Creatine Kinase Troponin I C-Reactive Protein B-Natriuretic Peptide Total Protein Albumin Prealbumin Triglycerides Cholesterol LDL Cholesterol HDL Cholesterol Cholesterol/HDL Ratio Thiamine Vitamin B12 Procalcitonin Free T4 TSH 3rd Generation Urine Color Urine Clarity Urine Turbidity Urine pH Ur Specific [place] Urine Protein Urine Glucose (UA) Urine Ketones Urine Occult Blood Urine Nitrate Urine Nitrite Urine Bilirubin Urine Urobilinogen Ur Leukocyte Esterase Urine RBC Urine WBC Urine WBC Clumps Ur Squamous Epith Cells Ur Transition Epith Cell Ur Renal Epithelial Cell Amorphous Sediment Urine Bacteria Hyaline Casts Granular Casts Urine Mucus Micro UA Comment Urine Culture Comments Urine Eosinophils Urine Osmolality Ur Random Creatinine Ur Random Sodium Pleural pH Pleural WBC Pleural Nuc Cells Pleural RBC Pleural Neutrophils Pleural Eosinophils Pleural Lymphocytes Pleural Monocytes Pleural Histocytes Pleural Mesothelial Pleural Total Protein Pleural Amylase Pleural LDH Pleural Glucose Nasal Screen MRSA (PCR) Stl C.difficile Tox PCR St C. diff Tox Epid 027 Vancomycin Trough Random Vancomycin Phenytoin Free Phenytoin LOWELL Screen RPR Blood Type Antibody Screen MTS Gel Crossmatch Blood Bank Comment 01/14/18 01/14/18 01/15/18 11:07 17:59 00:23 WBC RBC Hgb Hct MCV MCH MCHC RDW Plt Count MPV Prelim Diff (Auto) Neut % (Auto) Lymph % (Auto) [place] % (Auto) Eos % (Auto) Baso % (Auto) Neut # (Auto) Lymph # (Auto) [place] # (Auto) Eos # (Auto) Baso # (Auto) CBC Comment WBC Differential Total Counted Neutrophils % (Manual) Seg Neuts % (Manual) Band Neutrophils % Band Neuts % (Manual) Lymphocytes % Lymphocytes % (Manual) Monocytes % Monocytes % (Manual) Eosinophils % Eosinophils % (Manual) Basophils % Metamyelocytes % (Man) Neutrophils # (Manual) Abs Neuts (Manual) Metamyelocytes Myelocytes Nucleated RBCs Differential Comment Smudge Cells Toxic Granulation Toxic Vacuolation Dohle Bodies Platelet Estimate Platelet Morphology Plt Morphology Comment Basophilic Stippling Spherocytes Tear Drop Cells Ovalocytes Acanthocytes (Spur) RBC Morph Comment ESR Hematology Comments PT INR APTT Fibrinogen Puncture Site Patient Temperature HCO3 Base Excess O2 Saturation ABG pH ABG pCO2 ABG pO2 ABG HCO3 ABG O2 Content ABG Base Excess ABG Carboxyhemoglobin ABG Methemoglobin Stepan Test Hemoglobin Carboxyhemoglobin O2 Delivery Device Liter Flow Vent Setting Inspired O2 Critical Value Sodium Potassium Chloride Carbon Dioxide Anion Gap BUN Creatinine Estimated GFR POC Glucose 247 H 323 H 230 H Random Glucose Hemoglobin A1c Lactic Acid Calcium Prot Corrected Calcium Phosphorus Magnesium Total Bilirubin Direct Bilirubin Indirect Bilirubin AST ALT Alkaline Phosphatase Ammonia Total Creatine Kinase Troponin I C-Reactive Protein B-Natriuretic Peptide Total Protein Albumin Prealbumin Triglycerides Cholesterol LDL Cholesterol HDL Cholesterol Cholesterol/HDL Ratio Thiamine Vitamin B12 Procalcitonin Free T4 TSH 3rd Generation Urine Color Urine Clarity Urine Turbidity Urine pH Ur Specific [place] Urine Protein Urine Glucose (UA) Urine Ketones Urine Occult Blood Urine Nitrate Urine Nitrite Urine Bilirubin Urine Urobilinogen Ur Leukocyte Esterase Urine RBC Urine WBC Urine WBC Clumps Ur Squamous Epith Cells Ur Transition Epith Cell Ur Renal Epithelial Cell Amorphous Sediment Urine Bacteria Hyaline Casts Granular Casts Urine Mucus Micro UA Comment Urine Culture Comments Urine Eosinophils Urine Osmolality Ur Random Creatinine Ur Random Sodium Pleural pH Pleural WBC Pleural Nuc Cells Pleural RBC Pleural Neutrophils Pleural Eosinophils Pleural Lymphocytes Pleural Monocytes Pleural Histocytes Pleural Mesothelial Pleural Total Protein Pleural Amylase Pleural LDH Pleural Glucose Nasal Screen MRSA (PCR) Stl C.difficile Tox PCR St C. diff Tox Epid 027 Vancomycin Trough Random Vancomycin Phenytoin Free Phenytoin LOWELL Screen RPR Blood Type Antibody Screen MTS Gel Crossmatch Blood Bank Comment 01/15/18 01/15/18 01/15/18 06:09 07:22 07:22 WBC RBC Hgb Hct MCV MCH MCHC RDW Plt Count MPV Prelim Diff (Auto) Neut % (Auto) Lymph % (Auto) [place] % (Auto) Eos % (Auto) Baso % (Auto) Neut # (Auto) Lymph # (Auto) [place] # (Auto) Eos # (Auto) Baso # (Auto) CBC Comment WBC Differential Total Counted Neutrophils % (Manual) Seg Neuts % (Manual) Band Neutrophils % Band Neuts % (Manual) Lymphocytes % Lymphocytes % (Manual) Monocytes % Monocytes % (Manual) Eosinophils % Eosinophils % (Manual) Basophils % Metamyelocytes % (Man) Neutrophils # (Manual) Abs Neuts (Manual) Metamyelocytes Myelocytes Nucleated RBCs Differential Comment Smudge Cells Toxic Granulation Toxic Vacuolation Dohle Bodies Platelet Estimate Platelet Morphology Plt Morphology Comment Basophilic Stippling Spherocytes Tear Drop Cells Ovalocytes Acanthocytes (Spur) RBC Morph Comment ESR Hematology Comments PT 18.1 H INR 1.8 APTT 34.8 H Fibrinogen Puncture Site Patient Temperature HCO3 Base Excess O2 Saturation ABG pH ABG pCO2 ABG pO2 ABG HCO3 ABG O2 Content ABG Base Excess ABG Carboxyhemoglobin ABG Methemoglobin Stepan Test Hemoglobin Carboxyhemoglobin O2 Delivery Device Liter Flow Vent Setting Inspired O2 Critical Value Sodium 151 H Potassium 5.9 H Chloride 118 H Carbon Dioxide 24.4 Anion Gap 9 BUN 58 H Creatinine 1.62 H Estimated GFR 41 L POC Glucose 217 H Random Glucose 177 H Hemoglobin A1c Lactic Acid Calcium 8.2 L Prot Corrected Calcium Phosphorus Magnesium Total Bilirubin Direct Bilirubin Indirect Bilirubin AST ALT Alkaline Phosphatase Ammonia Total Creatine Kinase Troponin I C-Reactive Protein B-Natriuretic Peptide Total Protein Albumin Prealbumin Triglycerides Cholesterol LDL Cholesterol HDL Cholesterol Cholesterol/HDL Ratio Thiamine Vitamin B12 Procalcitonin Free T4 TSH 3rd Generation Urine Color Urine Clarity Urine Turbidity Urine pH Ur Specific [place] Urine Protein Urine Glucose (UA) Urine Ketones Urine Occult Blood Urine Nitrate Urine Nitrite Urine Bilirubin Urine Urobilinogen Ur Leukocyte Esterase Urine RBC Urine WBC Urine WBC Clumps Ur Squamous Epith Cells Ur Transition Epith Cell Ur Renal Epithelial Cell Amorphous Sediment Urine Bacteria Hyaline Casts Granular Casts Urine Mucus Micro UA Comment Urine Culture Comments Urine Eosinophils Urine Osmolality Ur Random Creatinine Ur Random Sodium Pleural pH Pleural WBC Pleural Nuc Cells Pleural RBC Pleural Neutrophils Pleural Eosinophils Pleural Lymphocytes Pleural Monocytes Pleural Histocytes Pleural Mesothelial Pleural Total Protein Pleural Amylase Pleural LDH Pleural Glucose Nasal Screen MRSA (PCR) Stl C.difficile Tox PCR St C. diff Tox Epid 027 Vancomycin Trough Random Vancomycin Phenytoin Free Phenytoin LOWELL Screen RPR Blood Type Antibody Screen MTS Gel Crossmatch Blood Bank Comment 01/15/18 01/15/18 01/15/18 07:49 13:11 19:31 WBC RBC Hgb Hct MCV MCH MCHC RDW Plt Count MPV Prelim Diff (Auto) Neut % (Auto) Lymph % (Auto) [place] % (Auto) Eos % (Auto) Baso % (Auto) Neut # (Auto) Lymph # (Auto) [place] # (Auto) Eos # (Auto) Baso # (Auto) CBC Comment WBC Differential Total Counted Neutrophils % (Manual) Seg Neuts % (Manual) Band Neutrophils % Band Neuts % (Manual) Lymphocytes % Lymphocytes % (Manual) Monocytes % Monocytes % (Manual) Eosinophils % Eosinophils % (Manual) Basophils % Metamyelocytes % (Man) Neutrophils # (Manual) Abs Neuts (Manual) Metamyelocytes Myelocytes Nucleated RBCs Differential Comment Smudge Cells Toxic Granulation Toxic Vacuolation Dohle Bodies Platelet Estimate Platelet Morphology Plt Morphology Comment Basophilic Stippling Spherocytes Tear Drop Cells Ovalocytes Acanthocytes (Spur) RBC Morph Comment ESR Hematology Comments PT INR APTT Fibrinogen Puncture Site Patient Temperature HCO3 Base Excess O2 Saturation ABG pH ABG pCO2 ABG pO2 ABG HCO3 ABG O2 Content ABG Base Excess ABG Carboxyhemoglobin ABG Methemoglobin Stepan Test Hemoglobin Carboxyhemoglobin O2 Delivery Device Liter Flow Vent Setting Inspired O2 Critical Value Sodium 148 H Potassium 5.4 H Chloride 118 H Carbon Dioxide 23.5 Anion Gap 7 BUN 59 H Creatinine 1.67 H Estimated GFR 40 L POC Glucose 218 H 211 H Random Glucose 195 H Hemoglobin A1c Lactic Acid Calcium 8.1 L Prot Corrected Calcium Phosphorus Magnesium Total Bilirubin Direct Bilirubin Indirect Bilirubin AST ALT Alkaline Phosphatase Ammonia Total Creatine Kinase Troponin I C-Reactive Protein B-Natriuretic Peptide Total Protein Albumin Prealbumin Triglycerides Cholesterol LDL Cholesterol HDL Cholesterol Cholesterol/HDL Ratio Thiamine Vitamin B12 Procalcitonin Free T4 TSH 3rd Generation Urine Color Urine Clarity Urine Turbidity Urine pH Ur Specific [place] Urine Protein Urine Glucose (UA) Urine Ketones Urine Occult Blood Urine Nitrate Urine Nitrite Urine Bilirubin Urine Urobilinogen Ur Leukocyte Esterase Urine RBC Urine WBC Urine WBC Clumps Ur Squamous Epith Cells Ur Transition Epith Cell Ur Renal Epithelial Cell Amorphous Sediment Urine Bacteria Hyaline Casts Granular Casts Urine Mucus Micro UA Comment Urine Culture Comments Urine Eosinophils Urine Osmolality Ur Random Creatinine Ur Random Sodium Pleural pH Pleural WBC Pleural Nuc Cells Pleural RBC Pleural Neutrophils Pleural Eosinophils Pleural Lymphocytes Pleural Monocytes Pleural Histocytes Pleural Mesothelial Pleural Total Protein Pleural Amylase Pleural LDH Pleural Glucose Nasal Screen MRSA (PCR) Stl C.difficile Tox PCR St C. diff Tox Epid 027 Vancomycin Trough Random Vancomycin Phenytoin Free Phenytoin LOWELL Screen RPR Blood Type Antibody Screen MTS Gel Crossmatch Blood Bank Comment 01/15/18 01/16/18 01/16/18 23:17 05:53 07:20 WBC RBC Hgb Hct MCV MCH MCHC RDW Plt Count MPV Prelim Diff (Auto) Neut % (Auto) Lymph % (Auto) [place] % (Auto) Eos % (Auto) Baso % (Auto) Neut # (Auto) Lymph # (Auto) [place] # (Auto) Eos # (Auto) Baso # (Auto) CBC Comment WBC Differential Total Counted Neutrophils % (Manual) Seg Neuts % (Manual) Band Neutrophils % Band Neuts % (Manual) Lymphocytes % Lymphocytes % (Manual) Monocytes % Monocytes % (Manual) Eosinophils % Eosinophils % (Manual) Basophils % Metamyelocytes % (Man) Neutrophils # (Manual) Abs Neuts (Manual) Metamyelocytes Myelocytes Nucleated RBCs Differential Comment Smudge Cells Toxic Granulation Toxic Vacuolation Dohle Bodies Platelet Estimate Platelet Morphology Plt Morphology Comment Basophilic Stippling Spherocytes Tear Drop Cells Ovalocytes Acanthocytes (Spur) RBC Morph Comment ESR Hematology Comments PT INR APTT Fibrinogen Puncture Site Patient Temperature HCO3 Base Excess O2 Saturation ABG pH ABG pCO2 ABG pO2 ABG HCO3 ABG O2 Content ABG Base Excess ABG Carboxyhemoglobin ABG Methemoglobin Stepan Test Hemoglobin Carboxyhemoglobin O2 Delivery Device Liter Flow Vent Setting Inspired O2 Critical Value Sodium Potassium Chloride Carbon Dioxide Anion Gap BUN Creatinine Estimated GFR POC Glucose 245 H 260 H 251 H Random Glucose Hemoglobin A1c Lactic Acid Calcium Prot Corrected Calcium Phosphorus Magnesium Total Bilirubin Direct Bilirubin Indirect Bilirubin AST ALT Alkaline Phosphatase Ammonia Total Creatine Kinase Troponin I C-Reactive Protein B-Natriuretic Peptide Total Protein Albumin Prealbumin Triglycerides Cholesterol LDL Cholesterol HDL Cholesterol Cholesterol/HDL Ratio Thiamine Vitamin B12 Procalcitonin Free T4 TSH 3rd Generation Urine Color Urine Clarity Urine Turbidity Urine pH Ur Specific [place] Urine Protein Urine Glucose (UA) Urine Ketones Urine Occult Blood Urine Nitrate Urine Nitrite Urine Bilirubin Urine Urobilinogen Ur Leukocyte Esterase Urine RBC Urine WBC Urine WBC Clumps Ur Squamous Epith Cells Ur Transition Epith Cell Ur Renal Epithelial Cell Amorphous Sediment Urine Bacteria Hyaline Casts Granular Casts Urine Mucus Micro UA Comment Urine Culture Comments Urine Eosinophils Urine Osmolality Ur Random Creatinine Ur Random Sodium Pleural pH Pleural WBC Pleural Nuc Cells Pleural RBC Pleural Neutrophils Pleural Eosinophils Pleural Lymphocytes Pleural Monocytes Pleural Histocytes Pleural Mesothelial Pleural Total Protein Pleural Amylase Pleural LDH Pleural Glucose Nasal Screen MRSA (PCR) Stl C.difficile Tox PCR St C. diff Tox Epid 027 Vancomycin Trough Random Vancomycin Phenytoin Free Phenytoin LOWELL Screen RPR Blood Type Antibody Screen MTS Gel Crossmatch Blood Bank Comment 01/16/18 01/16/18 01/16/18 07:51 11:38 13:15 WBC 12.5 H RBC 3.10 L Hgb 8.5 L Hct 28.1 L MCV 90.7 MCH 27.5 MCHC 30.4 L RDW 19.7 H Plt Count 450 MPV 8.8 Prelim Diff (Auto) Neut % (Auto) 51.4 Lymph % (Auto) 37.6 [place] % (Auto) 8.2 H Eos % (Auto) 2.4 Baso % (Auto) 0.4 Neut # (Auto) 6.4 Lymph # (Auto) 4.7 [place] # (Auto) 1.0 H Eos # (Auto) 0.3 Baso # (Auto) 0.1 CBC Comment WBC Differential . Total Counted Neutrophils % (Manual) Seg Neuts % (Manual) Band Neutrophils % Band Neuts % (Manual) Lymphocytes % Lymphocytes % (Manual) Monocytes % Monocytes % (Manual) Eosinophils % Eosinophils % (Manual) Basophils % Metamyelocytes % (Man) Neutrophils # (Manual) Abs Neuts (Manual) Metamyelocytes Myelocytes Nucleated RBCs Differential Comment Auto diff final Smudge Cells Toxic Granulation Toxic Vacuolation Dohle Bodies Platelet Estimate Platelet Morphology Plt Morphology Comment Basophilic Stippling Spherocytes Tear Drop Cells Ovalocytes Acanthocytes (Spur) RBC Morph Comment ESR Hematology Comments PT 23.2 H INR 2.3 APTT 35.9 H Fibrinogen Puncture Site Patient Temperature HCO3 Base Excess O2 Saturation ABG pH ABG pCO2 ABG pO2 ABG HCO3 ABG O2 Content ABG Base Excess ABG Carboxyhemoglobin ABG Methemoglobin Stepan Test Hemoglobin Carboxyhemoglobin O2 Delivery Device Liter Flow Vent Setting Inspired O2 Critical Value Sodium Potassium Chloride Carbon Dioxide Anion Gap BUN Creatinine Estimated GFR POC Glucose 203 H Random Glucose Hemoglobin A1c Lactic Acid Calcium Prot Corrected Calcium Phosphorus Magnesium Total Bilirubin Direct Bilirubin Indirect Bilirubin AST ALT Alkaline Phosphatase Ammonia Total Creatine Kinase Troponin I C-Reactive Protein B-Natriuretic Peptide Total Protein Albumin Prealbumin Triglycerides Cholesterol LDL Cholesterol HDL Cholesterol Cholesterol/HDL Ratio Thiamine Vitamin B12 Procalcitonin Free T4 TSH 3rd Generation Urine Color Urine Clarity Urine Turbidity Urine pH Ur Specific [place] Urine Protein Urine Glucose (UA) Urine Ketones Urine Occult Blood Urine Nitrate Urine Nitrite Urine Bilirubin Urine Urobilinogen Ur Leukocyte Esterase Urine RBC Urine WBC Urine WBC Clumps Ur Squamous Epith Cells Ur Transition Epith Cell Ur Renal Epithelial Cell Amorphous Sediment Urine Bacteria Hyaline Casts Granular Casts Urine Mucus Micro UA Comment Urine Culture Comments Urine Eosinophils Urine Osmolality Ur Random Creatinine Ur Random Sodium Pleural pH Pleural WBC Pleural Nuc Cells Pleural RBC Pleural Neutrophils Pleural Eosinophils Pleural Lymphocytes Pleural Monocytes Pleural Histocytes Pleural Mesothelial Pleural Total Protein Pleural Amylase Pleural LDH Pleural Glucose Nasal Screen MRSA (PCR) Stl C.difficile Tox PCR St C. diff Tox Epid 027 Vancomycin Trough Random Vancomycin Phenytoin Free Phenytoin LOWELL Screen RPR Blood Type Antibody Screen MTS Gel Crossmatch Blood Bank Comment 01/16/18 01/16/18 01/17/18 13:15 21:24 00:13 WBC RBC Hgb Hct MCV MCH MCHC RDW Plt Count MPV Prelim Diff (Auto) Neut % (Auto) Lymph % (Auto) [place] % (Auto) Eos % (Auto) Baso % (Auto) Neut # (Auto) Lymph # (Auto) [place] # (Auto) Eos # (Auto) Baso # (Auto) CBC Comment WBC Differential Total Counted Neutrophils % (Manual) Seg Neuts % (Manual) Band Neutrophils % Band Neuts % (Manual) Lymphocytes % Lymphocytes % (Manual) Monocytes % Monocytes % (Manual) Eosinophils % Eosinophils % (Manual) Basophils % Metamyelocytes % (Man) Neutrophils # (Manual) Abs Neuts (Manual) Metamyelocytes Myelocytes Nucleated RBCs Differential Comment Smudge Cells Toxic Granulation Toxic Vacuolation Dohle Bodies Platelet Estimate Platelet Morphology Plt Morphology Comment Basophilic Stippling Spherocytes Tear Drop Cells Ovalocytes Acanthocytes (Spur) RBC Morph Comment ESR Hematology Comments PT INR APTT Fibrinogen Puncture Site Patient Temperature HCO3 Base Excess O2 Saturation ABG pH ABG pCO2 ABG pO2 ABG HCO3 ABG O2 Content ABG Base Excess ABG Carboxyhemoglobin ABG Methemoglobin Stepan Test Hemoglobin Carboxyhemoglobin O2 Delivery Device Liter Flow Vent Setting Inspired O2 Critical Value Sodium 150 H Potassium 5.5 H Chloride 118 H Carbon Dioxide 26.1 Anion Gap 6 BUN 60 H Creatinine 1.73 H Estimated GFR 38 L POC Glucose 202 H 201 H Random Glucose 176 H Hemoglobin A1c Lactic Acid Calcium 8.2 L Prot Corrected Calcium Phosphorus Magnesium Total Bilirubin Direct Bilirubin Indirect Bilirubin AST ALT Alkaline Phosphatase Ammonia Total Creatine Kinase Troponin I C-Reactive Protein B-Natriuretic Peptide Total Protein Albumin Prealbumin Triglycerides Cholesterol LDL Cholesterol HDL Cholesterol Cholesterol/HDL Ratio Thiamine Vitamin B12 Procalcitonin Free T4 TSH 3rd Generation Urine Color Urine Clarity Urine Turbidity Urine pH Ur Specific [place] Urine Protein Urine Glucose (UA) Urine Ketones Urine Occult Blood Urine Nitrate Urine Nitrite Urine Bilirubin Urine Urobilinogen Ur Leukocyte Esterase Urine RBC Urine WBC Urine WBC Clumps Ur Squamous Epith Cells Ur Transition Epith Cell Ur Renal Epithelial Cell Amorphous Sediment Urine Bacteria Hyaline Casts Granular Casts Urine Mucus Micro UA Comment Urine Culture Comments Urine Eosinophils Urine Osmolality Ur Random Creatinine Ur Random Sodium Pleural pH Pleural WBC Pleural Nuc Cells Pleural RBC Pleural Neutrophils Pleural Eosinophils Pleural Lymphocytes Pleural Monocytes Pleural Histocytes Pleural Mesothelial Pleural Total Protein Pleural Amylase Pleural LDH Pleural Glucose Nasal Screen MRSA (PCR) Stl C.difficile Tox PCR St C. diff Tox Epid 027 Vancomycin Trough Random Vancomycin Phenytoin Free Phenytoin LOWELL Screen RPR Blood Type Antibody Screen MTS Gel Crossmatch Blood Bank Comment 01/17/18 01/17/18 01/17/18 00:23 06:00 07:51 WBC RBC Hgb Hct MCV MCH MCHC RDW Plt Count MPV Prelim Diff (Auto) Neut % (Auto) Lymph % (Auto) [place] % (Auto) Eos % (Auto) Baso % (Auto) Neut # (Auto) Lymph # (Auto) [place] # (Auto) Eos # (Auto) Baso # (Auto) CBC Comment WBC Differential Total Counted Neutrophils % (Manual) Seg Neuts % (Manual) Band Neutrophils % Band Neuts % (Manual) Lymphocytes % Lymphocytes % (Manual) Monocytes % Monocytes % (Manual) Eosinophils % Eosinophils % (Manual) Basophils % Metamyelocytes % (Man) Neutrophils # (Manual) Abs Neuts (Manual) Metamyelocytes Myelocytes Nucleated RBCs Differential Comment Smudge Cells Toxic Granulation Toxic Vacuolation Dohle Bodies Platelet Estimate Platelet Morphology Plt Morphology Comment Basophilic Stippling Spherocytes Tear Drop Cells Ovalocytes Acanthocytes (Spur) RBC Morph Comment ESR Hematology Comments PT 23.0 H INR 2.3 APTT 36.1 H Fibrinogen Puncture Site Patient Temperature HCO3 Base Excess O2 Saturation ABG pH ABG pCO2 ABG pO2 ABG HCO3 ABG O2 Content ABG Base Excess ABG Carboxyhemoglobin ABG Methemoglobin Stepan Test Hemoglobin Carboxyhemoglobin O2 Delivery Device Liter Flow Vent Setting Inspired O2 Critical Value Sodium Potassium Chloride Carbon Dioxide Anion Gap BUN Creatinine Estimated GFR POC Glucose 242 H Random Glucose Hemoglobin A1c Lactic Acid Calcium Prot Corrected Calcium Phosphorus Magnesium Total Bilirubin Direct Bilirubin Indirect Bilirubin AST ALT Alkaline Phosphatase Ammonia Total Creatine Kinase Troponin I C-Reactive Protein B-Natriuretic Peptide Total Protein Albumin Prealbumin Triglycerides Cholesterol LDL Cholesterol HDL Cholesterol Cholesterol/HDL Ratio Thiamine Vitamin B12 Procalcitonin Free T4 TSH 3rd Generation Urine Color Yellow Urine Clarity Cloudy H Urine Turbidity Urine pH 8.0 Ur Specific [place] 1.015 Urine Protein 100 H Urine Glucose (UA) Negative Urine Ketones Negative Urine Occult Blood Small H Urine Nitrate Negative Urine Nitrite Urine Bilirubin Negative Urine Urobilinogen Less than 2 Ur Leukocyte Esterase Large H Urine RBC 14 H Urine WBC Urine WBC Clumps Many H Ur Squamous Epith Cells Ur Transition Epith Cell <1 Ur Renal Epithelial Cell 1 Amorphous Sediment Urine Bacteria Moderate H Hyaline Casts Granular Casts Urine Mucus Few H Micro UA Comment Cath-culture ind Urine Culture Comments Cath-cult indicated Urine Eosinophils Urine Osmolality Ur Random Creatinine Ur Random Sodium Pleural pH Pleural WBC Pleural Nuc Cells Pleural RBC Pleural Neutrophils Pleural Eosinophils Pleural Lymphocytes Pleural Monocytes Pleural Histocytes Pleural Mesothelial Pleural Total Protein Pleural Amylase Pleural LDH Pleural Glucose Nasal Screen MRSA (PCR) Stl C.difficile Tox PCR St C. diff Tox Epid 027 Vancomycin Trough Random Vancomycin Phenytoin Free Phenytoin LOWELL Screen RPR Blood Type Antibody Screen MTS Gel Crossmatch Blood Bank Comment 01/17/18 01/17/18 01/17/18 07:51 07:51 09:05 WBC 13.0 H RBC 2.93 L Hgb 8.2 L Hct 26.6 L MCV 91.0 MCH 28.1 MCHC 30.9 L RDW 19.7 H Plt Count 424 MPV 9.0 Prelim Diff (Auto) Neut % (Auto) 55.1 Lymph % (Auto) 35.2 [place] % (Auto) 6.9 Eos % (Auto) 2.2 Baso % (Auto) 0.6 Neut # (Auto) 7.1 Lymph # (Auto) 4.6 [place] # (Auto) 0.9 Eos # (Auto) 0.3 Baso # (Auto) 0.1 CBC Comment WBC Differential . Total Counted Neutrophils % (Manual) Seg Neuts % (Manual) Band Neutrophils % Band Neuts % (Manual) Lymphocytes % Lymphocytes % (Manual) Monocytes % Monocytes % (Manual) Eosinophils % Eosinophils % (Manual) Basophils % Metamyelocytes % (Man) Neutrophils # (Manual) Abs Neuts (Manual) Metamyelocytes Myelocytes Nucleated RBCs Differential Comment Auto diff final Smudge Cells Toxic Granulation Toxic Vacuolation Dohle Bodies Platelet Estimate Platelet Morphology Plt Morphology Comment Basophilic Stippling Spherocytes Tear Drop Cells Ovalocytes Acanthocytes (Spur) RBC Morph Comment ESR Hematology Comments PT INR APTT Fibrinogen Puncture Site Patient Temperature HCO3 Base Excess O2 Saturation ABG pH ABG pCO2 ABG pO2 ABG HCO3 ABG O2 Content ABG Base Excess ABG Carboxyhemoglobin ABG Methemoglobin Stepan Test Hemoglobin Carboxyhemoglobin O2 Delivery Device Liter Flow Vent Setting Inspired O2 Critical Value Sodium 151 H Potassium 5.3 H Chloride 121 H Carbon Dioxide 25.5 Anion Gap 5 BUN 60 H Creatinine 1.73 H Estimated GFR 38 L POC Glucose 242 H Random Glucose 211 H Hemoglobin A1c Lactic Acid Calcium 7.8 L Prot Corrected Calcium Phosphorus Magnesium Total Bilirubin Direct Bilirubin Indirect Bilirubin AST ALT Alkaline Phosphatase Ammonia Total Creatine Kinase Troponin I C-Reactive Protein B-Natriuretic Peptide Total Protein Albumin Prealbumin Triglycerides Cholesterol LDL Cholesterol HDL Cholesterol Cholesterol/HDL Ratio Thiamine Vitamin B12 Procalcitonin Free T4 TSH 3rd Generation Urine Color Urine Clarity Urine Turbidity Urine pH Ur Specific [place] Urine Protein Urine Glucose (UA) Urine Ketones Urine Occult Blood Urine Nitrate Urine Nitrite Urine Bilirubin Urine Urobilinogen Ur Leukocyte Esterase Urine RBC Urine WBC Urine WBC Clumps Ur Squamous Epith Cells Ur Transition Epith Cell Ur Renal Epithelial Cell Amorphous Sediment Urine Bacteria Hyaline Casts Granular Casts Urine Mucus Micro UA Comment Urine Culture Comments Urine Eosinophils Urine Osmolality Ur Random Creatinine Ur Random Sodium Pleural pH Pleural WBC Pleural Nuc Cells Pleural RBC Pleural Neutrophils Pleural Eosinophils Pleural Lymphocytes Pleural Monocytes Pleural Histocytes Pleural Mesothelial Pleural Total Protein Pleural Amylase Pleural LDH Pleural Glucose Nasal Screen MRSA (PCR) Stl C.difficile Tox PCR St C. diff Tox Epid 027 Vancomycin Trough Random Vancomycin Phenytoin Free Phenytoin LOWELL Screen RPR Blood Type Antibody Screen MTS Gel Crossmatch Blood Bank Comment 01/17/18 01/17/18 01/17/18 12:33 17:57 22:48 WBC RBC Hgb Hct MCV MCH MCHC RDW Plt Count MPV Prelim Diff (Auto) Neut % (Auto) Lymph % (Auto) [place] % (Auto) Eos % (Auto) Baso % (Auto) Neut # (Auto) Lymph # (Auto) [place] # (Auto) Eos # (Auto) Baso # (Auto) CBC Comment WBC Differential Total Counted Neutrophils % (Manual) Seg Neuts % (Manual) Band Neutrophils % Band Neuts % (Manual) Lymphocytes % Lymphocytes % (Manual) Monocytes % Monocytes % (Manual) Eosinophils % Eosinophils % (Manual) Basophils % Metamyelocytes % (Man) Neutrophils # (Manual) Abs Neuts (Manual) Metamyelocytes Myelocytes Nucleated RBCs Differential Comment Smudge Cells Toxic Granulation Toxic Vacuolation Dohle Bodies Platelet Estimate Platelet Morphology Plt Morphology Comment Basophilic Stippling Spherocytes Tear Drop Cells Ovalocytes Acanthocytes (Spur) RBC Morph Comment ESR Hematology Comments PT INR APTT Fibrinogen Puncture Site Patient Temperature HCO3 Base Excess O2 Saturation ABG pH ABG pCO2 ABG pO2 ABG HCO3 ABG O2 Content ABG Base Excess ABG Carboxyhemoglobin ABG Methemoglobin Stepan Test Hemoglobin Carboxyhemoglobin O2 Delivery Device Liter Flow Vent Setting Inspired O2 Critical Value Sodium Potassium Chloride Carbon Dioxide Anion Gap BUN Creatinine Estimated GFR POC Glucose 234 H 191 H 181 H Random Glucose Hemoglobin A1c Lactic Acid Calcium Prot Corrected Calcium Phosphorus Magnesium Total Bilirubin Direct Bilirubin Indirect Bilirubin AST ALT Alkaline Phosphatase Ammonia Total Creatine Kinase Troponin I C-Reactive Protein B-Natriuretic Peptide Total Protein Albumin Prealbumin Triglycerides Cholesterol LDL Cholesterol HDL Cholesterol Cholesterol/HDL Ratio Thiamine Vitamin B12 Procalcitonin Free T4 TSH 3rd Generation Urine Color Urine Clarity Urine Turbidity Urine pH Ur Specific [place] Urine Protein Urine Glucose (UA) Urine Ketones Urine Occult Blood Urine Nitrate Urine Nitrite Urine Bilirubin Urine Urobilinogen Ur Leukocyte Esterase Urine RBC Urine WBC Urine WBC Clumps Ur Squamous Epith Cells Ur Transition Epith Cell Ur Renal Epithelial Cell Amorphous Sediment Urine Bacteria Hyaline Casts Granular Casts Urine Mucus Micro UA Comment Urine Culture Comments Urine Eosinophils Urine Osmolality Ur Random Creatinine Ur Random Sodium Pleural pH Pleural WBC Pleural Nuc Cells Pleural RBC Pleural Neutrophils Pleural Eosinophils Pleural Lymphocytes Pleural Monocytes Pleural Histocytes Pleural Mesothelial Pleural Total Protein Pleural Amylase Pleural LDH Pleural Glucose Nasal Screen MRSA (PCR) Stl C.difficile Tox PCR St C. diff Tox Epid 027 Vancomycin Trough Random Vancomycin Phenytoin Free Phenytoin LOWELL Screen RPR Blood Type Antibody Screen MTS Gel Crossmatch Blood Bank Comment 01/18/18 01/18/18 01/18/18 00:20 06:45 07:25 WBC RBC Hgb Hct MCV MCH MCHC RDW Plt Count MPV Prelim Diff (Auto) Neut % (Auto) Lymph % (Auto) [place] % (Auto) Eos % (Auto) Baso % (Auto) Neut # (Auto) Lymph # (Auto) [place] # (Auto) Eos # (Auto) Baso # (Auto) CBC Comment WBC Differential Total Counted Neutrophils % (Manual) Seg Neuts % (Manual) Band Neutrophils % Band Neuts % (Manual) Lymphocytes % Lymphocytes % (Manual) Monocytes % Monocytes % (Manual) Eosinophils % Eosinophils % (Manual) Basophils % Metamyelocytes % (Man) Neutrophils # (Manual) Abs Neuts (Manual) Metamyelocytes Myelocytes Nucleated RBCs Differential Comment Smudge Cells Toxic Granulation Toxic Vacuolation Dohle Bodies Platelet Estimate Platelet Morphology Plt Morphology Comment Basophilic Stippling Spherocytes Tear Drop Cells Ovalocytes Acanthocytes (Spur) RBC Morph Comment ESR Hematology Comments PT INR APTT Fibrinogen Puncture Site Patient Temperature HCO3 Base Excess O2 Saturation ABG pH ABG pCO2 ABG pO2 ABG HCO3 ABG O2 Content ABG Base Excess ABG Carboxyhemoglobin ABG Methemoglobin Stepan Test Hemoglobin Carboxyhemoglobin O2 Delivery Device Liter Flow Vent Setting Inspired O2 Critical Value Sodium 149 H Potassium 5.3 H Chloride 117 H Carbon Dioxide 22.2 Anion Gap 10 BUN 53 H Creatinine 1.65 H Estimated GFR 41 L POC Glucose 188 H 236 H Random Glucose 216 H Hemoglobin A1c Lactic Acid Calcium 7.7 L Prot Corrected Calcium Phosphorus Magnesium Total Bilirubin Direct Bilirubin Indirect Bilirubin AST ALT Alkaline Phosphatase Ammonia Total Creatine Kinase Troponin I C-Reactive Protein B-Natriuretic Peptide Total Protein Albumin Prealbumin Triglycerides Cholesterol LDL Cholesterol HDL Cholesterol Cholesterol/HDL Ratio Thiamine Vitamin B12 Procalcitonin Free T4 TSH 3rd Generation Urine Color Urine Clarity Urine Turbidity Urine pH Ur Specific [place] Urine Protein Urine Glucose (UA) Urine Ketones Urine Occult Blood Urine Nitrate Urine Nitrite Urine Bilirubin Urine Urobilinogen Ur Leukocyte Esterase Urine RBC Urine WBC Urine WBC Clumps Ur Squamous Epith Cells Ur Transition Epith Cell Ur Renal Epithelial Cell Amorphous Sediment Urine Bacteria Hyaline Casts Granular Casts Urine Mucus Micro UA Comment Urine Culture Comments Urine Eosinophils Urine Osmolality Ur Random Creatinine Ur Random Sodium Pleural pH Pleural WBC Pleural Nuc Cells Pleural RBC Pleural Neutrophils Pleural Eosinophils Pleural Lymphocytes Pleural Monocytes Pleural Histocytes Pleural Mesothelial Pleural Total Protein Pleural Amylase Pleural LDH Pleural Glucose Nasal Screen MRSA (PCR) Stl C.difficile Tox PCR St C. diff Tox Epid 027 Vancomycin Trough Random Vancomycin Phenytoin Free Phenytoin LOWELL Screen RPR Blood Type Antibody Screen MTS Gel Crossmatch Blood Bank Comment 01/18/18 01/18/18 01/18/18 07:25 10:43 13:51 WBC RBC Hgb Hct MCV MCH MCHC RDW Plt Count MPV Prelim Diff (Auto) Neut % (Auto) Lymph % (Auto) [place] % (Auto) Eos % (Auto) Baso % (Auto) Neut # (Auto) Lymph # (Auto) [place] # (Auto) Eos # (Auto) Baso # (Auto) CBC Comment WBC Differential Total Counted Neutrophils % (Manual) Seg Neuts % (Manual) Band Neutrophils % Band Neuts % (Manual) Lymphocytes % Lymphocytes % (Manual) Monocytes % Monocytes % (Manual) Eosinophils % Eosinophils % (Manual) Basophils % Metamyelocytes % (Man) Neutrophils # (Manual) Abs Neuts (Manual) Metamyelocytes Myelocytes Nucleated RBCs Differential Comment Smudge Cells Toxic Granulation Toxic Vacuolation Dohle Bodies Platelet Estimate Platelet Morphology Plt Morphology Comment Basophilic Stippling Spherocytes Tear Drop Cells Ovalocytes Acanthocytes (Spur) RBC Morph Comment ESR Hematology Comments PT 22.9 H INR 2.3 APTT Fibrinogen Puncture Site Patient Temperature HCO3 Base Excess O2 Saturation ABG pH ABG pCO2 ABG pO2 ABG HCO3 ABG O2 Content ABG Base Excess ABG Carboxyhemoglobin ABG Methemoglobin Stepan Test Hemoglobin Carboxyhemoglobin O2 Delivery Device Liter Flow Vent Setting Inspired O2 Critical Value Sodium Potassium Chloride Carbon Dioxide Anion Gap BUN Creatinine Estimated GFR POC Glucose 276 H 235 H Random Glucose Hemoglobin A1c Lactic Acid Calcium Prot Corrected Calcium Phosphorus Magnesium Total Bilirubin Direct Bilirubin Indirect Bilirubin AST ALT Alkaline Phosphatase Ammonia Total Creatine Kinase Troponin I C-Reactive Protein B-Natriuretic Peptide Total Protein Albumin Prealbumin Triglycerides Cholesterol LDL Cholesterol HDL Cholesterol Cholesterol/HDL Ratio Thiamine Vitamin B12 Procalcitonin Free T4 TSH 3rd Generation Urine Color Urine Clarity Urine Turbidity Urine pH Ur Specific [place] Urine Protein Urine Glucose (UA) Urine Ketones Urine Occult Blood Urine Nitrate Urine Nitrite Urine Bilirubin Urine Urobilinogen Ur Leukocyte Esterase Urine RBC Urine WBC Urine WBC Clumps Ur Squamous Epith Cells Ur Transition Epith Cell Ur Renal Epithelial Cell Amorphous Sediment Urine Bacteria Hyaline Casts Granular Casts Urine Mucus Micro UA Comment Urine Culture Comments Urine Eosinophils Urine Osmolality Ur Random Creatinine Ur Random Sodium Pleural pH Pleural WBC Pleural Nuc Cells Pleural RBC Pleural Neutrophils Pleural Eosinophils Pleural Lymphocytes Pleural Monocytes Pleural Histocytes Pleural Mesothelial Pleural Total Protein Pleural Amylase Pleural LDH Pleural Glucose Nasal Screen MRSA (PCR) Stl C.difficile Tox PCR St C. diff Tox Epid 027 Vancomycin Trough Random Vancomycin Phenytoin Free Phenytoin LOWELL Screen RPR Blood Type Antibody Screen MTS Gel Crossmatch Blood Bank Comment 01/18/18 01/18/18 01/18/18 18:16 22:04 23:46 WBC RBC Hgb Hct MCV MCH MCHC RDW Plt Count MPV Prelim Diff (Auto) Neut % (Auto) Lymph % (Auto) [place] % (Auto) Eos % (Auto) Baso % (Auto) Neut # (Auto) Lymph # (Auto) [place] # (Auto) Eos # (Auto) Baso # (Auto) CBC Comment WBC Differential Total Counted Neutrophils % (Manual) Seg Neuts % (Manual) Band Neutrophils % Band Neuts % (Manual) Lymphocytes % Lymphocytes % (Manual) Monocytes % Monocytes % (Manual) Eosinophils % Eosinophils % (Manual) Basophils % Metamyelocytes % (Man) Neutrophils # (Manual) Abs Neuts (Manual) Metamyelocytes Myelocytes Nucleated RBCs Differential Comment Smudge Cells Toxic Granulation Toxic Vacuolation Dohle Bodies Platelet Estimate Platelet Morphology Plt Morphology Comment Basophilic Stippling Spherocytes Tear Drop Cells Ovalocytes Acanthocytes (Spur) RBC Morph Comment ESR Hematology Comments PT INR APTT Fibrinogen Puncture Site Patient Temperature HCO3 Base Excess O2 Saturation ABG pH ABG pCO2 ABG pO2 ABG HCO3 ABG O2 Content ABG Base Excess ABG Carboxyhemoglobin ABG Methemoglobin Stepan Test Hemoglobin Carboxyhemoglobin O2 Delivery Device Liter Flow Vent Setting Inspired O2 Critical Value Sodium Potassium Chloride Carbon Dioxide Anion Gap BUN Creatinine Estimated GFR POC Glucose 227 H 202 H 193 H Random Glucose Hemoglobin A1c Lactic Acid Calcium Prot Corrected Calcium Phosphorus Magnesium Total Bilirubin Direct Bilirubin Indirect Bilirubin AST ALT Alkaline Phosphatase Ammonia Total Creatine Kinase Troponin I C-Reactive Protein B-Natriuretic Peptide Total Protein Albumin Prealbumin Triglycerides Cholesterol LDL Cholesterol HDL Cholesterol Cholesterol/HDL Ratio Thiamine Vitamin B12 Procalcitonin Free T4 TSH 3rd Generation Urine Color Urine Clarity Urine Turbidity Urine pH Ur Specific [place] Urine Protein Urine Glucose (UA) Urine Ketones Urine Occult Blood Urine Nitrate Urine Nitrite Urine Bilirubin Urine Urobilinogen Ur Leukocyte Esterase Urine RBC Urine WBC Urine WBC Clumps Ur Squamous Epith Cells Ur Transition Epith Cell Ur Renal Epithelial Cell Amorphous Sediment Urine Bacteria Hyaline Casts Granular Casts Urine Mucus Micro UA Comment Urine Culture Comments Urine Eosinophils Urine Osmolality Ur Random Creatinine Ur Random Sodium Pleural pH Pleural WBC Pleural Nuc Cells Pleural RBC Pleural Neutrophils Pleural Eosinophils Pleural Lymphocytes Pleural Monocytes Pleural Histocytes Pleural Mesothelial Pleural Total Protein Pleural Amylase Pleural LDH Pleural Glucose Nasal Screen MRSA (PCR) Stl C.difficile Tox PCR St C. diff Tox Epid 027 Vancomycin Trough Random Vancomycin Phenytoin Free Phenytoin LOWELL Screen RPR Blood Type Antibody Screen MTS Gel Crossmatch Blood Bank Comment 01/19/18 01/19/18 01/19/18 05:57 07:28 07:55 WBC RBC Hgb Hct MCV MCH MCHC RDW Plt Count MPV Prelim Diff (Auto) Neut % (Auto) Lymph % (Auto) [place] % (Auto) Eos % (Auto) Baso % (Auto) Neut # (Auto) Lymph # (Auto) [place] # (Auto) Eos # (Auto) Baso # (Auto) CBC Comment WBC Differential Total Counted Neutrophils % (Manual) Seg Neuts % (Manual) Band Neutrophils % Band Neuts % (Manual) Lymphocytes % Lymphocytes % (Manual) Monocytes % Monocytes % (Manual) Eosinophils % Eosinophils % (Manual) Basophils % Metamyelocytes % (Man) Neutrophils # (Manual) Abs Neuts (Manual) Metamyelocytes Myelocytes Nucleated RBCs Differential Comment Smudge Cells Toxic Granulation Toxic Vacuolation Dohle Bodies Platelet Estimate Platelet Morphology Plt Morphology Comment Basophilic Stippling Spherocytes Tear Drop Cells Ovalocytes Acanthocytes (Spur) RBC Morph Comment ESR Hematology Comments PT 25.3 H INR 2.5 APTT Fibrinogen Puncture Site Patient Temperature HCO3 Base Excess O2 Saturation ABG pH ABG pCO2 ABG pO2 ABG HCO3 ABG O2 Content ABG Base Excess ABG Carboxyhemoglobin ABG Methemoglobin Stepan Test Hemoglobin Carboxyhemoglobin O2 Delivery Device Liter Flow Vent Setting Inspired O2 Critical Value Sodium Potassium Chloride Carbon Dioxide Anion Gap BUN Creatinine Estimated GFR POC Glucose 212 H 216 H Random Glucose Hemoglobin A1c Lactic Acid Calcium Prot Corrected Calcium Phosphorus Magnesium Total Bilirubin Direct Bilirubin Indirect Bilirubin AST ALT Alkaline Phosphatase Ammonia Total Creatine Kinase Troponin I C-Reactive Protein B-Natriuretic Peptide Total Protein Albumin Prealbumin Triglycerides Cholesterol LDL Cholesterol HDL Cholesterol Cholesterol/HDL Ratio Thiamine Vitamin B12 Procalcitonin Free T4 TSH 3rd Generation Urine Color Urine Clarity Urine Turbidity Urine pH Ur Specific [place] Urine Protein Urine Glucose (UA) Urine Ketones Urine Occult Blood Urine Nitrate Urine Nitrite Urine Bilirubin Urine Urobilinogen Ur Leukocyte Esterase Urine RBC Urine WBC Urine WBC Clumps Ur Squamous Epith Cells Ur Transition Epith Cell Ur Renal Epithelial Cell Amorphous Sediment Urine Bacteria Hyaline Casts Granular Casts Urine Mucus Micro UA Comment Urine Culture Comments Urine Eosinophils Urine Osmolality Ur Random Creatinine Ur Random Sodium Pleural pH Pleural WBC Pleural Nuc Cells Pleural RBC Pleural Neutrophils Pleural Eosinophils Pleural Lymphocytes Pleural Monocytes Pleural Histocytes Pleural Mesothelial Pleural Total Protein Pleural Amylase Pleural LDH Pleural Glucose Nasal Screen MRSA (PCR) Stl C.difficile Tox PCR St C. diff Tox Epid 027 Vancomycin Trough Random Vancomycin Phenytoin Free Phenytoin LOWELL Screen RPR Blood Type Antibody Screen MTS Gel Crossmatch Blood Bank Comment 01/19/18 01/19/18 01/19/18 07:55 08:52 13:42 WBC RBC Hgb Hct MCV MCH MCHC RDW Plt Count MPV Prelim Diff (Auto) Neut % (Auto) Lymph % (Auto) [place] % (Auto) Eos % (Auto) Baso % (Auto) Neut # (Auto) Lymph # (Auto) [place] # (Auto) Eos # (Auto) Baso # (Auto) CBC Comment WBC Differential Total Counted Neutrophils % (Manual) Seg Neuts % (Manual) Band Neutrophils % Band Neuts % (Manual) Lymphocytes % Lymphocytes % (Manual) Monocytes % Monocytes % (Manual) Eosinophils % Eosinophils % (Manual) Basophils % Metamyelocytes % (Man) Neutrophils # (Manual) Abs Neuts (Manual) Metamyelocytes Myelocytes Nucleated RBCs Differential Comment Smudge Cells Toxic Granulation Toxic Vacuolation Dohle Bodies Platelet Estimate Platelet Morphology Plt Morphology Comment Basophilic Stippling Spherocytes Tear Drop Cells Ovalocytes Acanthocytes (Spur) RBC Morph Comment ESR Hematology Comments PT INR APTT Fibrinogen Puncture Site Patient Temperature HCO3 Base Excess O2 Saturation ABG pH ABG pCO2 ABG pO2 ABG HCO3 ABG O2 Content ABG Base Excess ABG Carboxyhemoglobin ABG Methemoglobin Stepan Test Hemoglobin Carboxyhemoglobin O2 Delivery Device Liter Flow Vent Setting Inspired O2 Critical Value Sodium 148 H Potassium 5.2 H Chloride 118 H Carbon Dioxide 21.3 Anion Gap 9 BUN 51 H Creatinine 1.58 H Estimated GFR 43 L POC Glucose 194 H 184 H Random Glucose 186 H Hemoglobin A1c Lactic Acid Calcium 7.7 L Prot Corrected Calcium Phosphorus Magnesium Total Bilirubin Direct Bilirubin Indirect Bilirubin AST ALT Alkaline Phosphatase Ammonia Total Creatine Kinase Troponin I C-Reactive Protein B-Natriuretic Peptide Total Protein Albumin Prealbumin Triglycerides Cholesterol LDL Cholesterol HDL Cholesterol Cholesterol/HDL Ratio Thiamine Vitamin B12 Procalcitonin Free T4 TSH 3rd Generation Urine Color Urine Clarity Urine Turbidity Urine pH Ur Specific [place] Urine Protein Urine Glucose (UA) Urine Ketones Urine Occult Blood Urine Nitrate Urine Nitrite Urine Bilirubin Urine Urobilinogen Ur Leukocyte Esterase Urine RBC Urine WBC Urine WBC Clumps Ur Squamous Epith Cells Ur Transition Epith Cell Ur Renal Epithelial Cell Amorphous Sediment Urine Bacteria Hyaline Casts Granular Casts Urine Mucus Micro UA Comment Urine Culture Comments Urine Eosinophils Urine Osmolality Ur Random Creatinine Ur Random Sodium Pleural pH Pleural WBC Pleural Nuc Cells Pleural RBC Pleural Neutrophils Pleural Eosinophils Pleural Lymphocytes Pleural Monocytes Pleural Histocytes Pleural Mesothelial Pleural Total Protein Pleural Amylase Pleural LDH Pleural Glucose Nasal Screen MRSA (PCR) Stl C.difficile Tox PCR St C. diff Tox Epid 027 Vancomycin Trough Random Vancomycin Phenytoin Free Phenytoin LOWELL Screen RPR Blood Type Antibody Screen MTS Gel Crossmatch Blood Bank Comment 01/20/18 01/20/18 01/20/18 06:50 06:50 06:50 WBC RBC Hgb Hct MCV MCH MCHC RDW Plt Count MPV Prelim Diff (Auto) Neut % (Auto) Lymph % (Auto) [place] % (Auto) Eos % (Auto) Baso % (Auto) Neut # (Auto) Lymph # (Auto) [place] # (Auto) Eos # (Auto) Baso # (Auto) CBC Comment WBC Differential Total Counted Neutrophils % (Manual) Seg Neuts % (Manual) Band Neutrophils % Band Neuts % (Manual) Lymphocytes % Lymphocytes % (Manual) Monocytes % Monocytes % (Manual) Eosinophils % Eosinophils % (Manual) Basophils % Metamyelocytes % (Man) Neutrophils # (Manual) Abs Neuts (Manual) Metamyelocytes Myelocytes Nucleated RBCs Differential Comment Smudge Cells Toxic Granulation Toxic Vacuolation Dohle Bodies Platelet Estimate Platelet Morphology Plt Morphology Comment Basophilic Stippling Spherocytes Tear Drop Cells Ovalocytes Acanthocytes (Spur) RBC Morph Comment ESR Hematology Comments PT 26.9 H INR 2.7 APTT Fibrinogen Puncture Site Patient Temperature HCO3 Base Excess O2 Saturation ABG pH ABG pCO2 ABG pO2 ABG HCO3 ABG O2 Content ABG Base Excess ABG Carboxyhemoglobin ABG Methemoglobin Stepan Test Hemoglobin Carboxyhemoglobin O2 Delivery Device Liter Flow Vent Setting Inspired O2 Critical Value Sodium 146 H Potassium 4.9 Chloride 118 H Carbon Dioxide 19.7 L Anion Gap 8 BUN 52 H Creatinine 1.59 H Estimated GFR 42 L POC Glucose Random Glucose 176 H Hemoglobin A1c Lactic Acid Calcium 7.7 L Prot Corrected Calcium Phosphorus Magnesium Total Bilirubin 0.3 Direct Bilirubin Indirect Bilirubin AST 73 H ALT 60 Alkaline Phosphatase 210 H Ammonia Total Creatine Kinase Troponin I C-Reactive Protein B-Natriuretic Peptide Total Protein 7.1 Albumin 1.3 L Prealbumin Triglycerides Cholesterol LDL Cholesterol HDL Cholesterol Cholesterol/HDL Ratio Thiamine Vitamin B12 Procalcitonin Free T4 TSH 3rd Generation Urine Color Urine Clarity Urine Turbidity Urine pH Ur Specific [place] Urine Protein Urine Glucose (UA) Urine Ketones Urine Occult Blood Urine Nitrate Urine Nitrite Urine Bilirubin Urine Urobilinogen Ur Leukocyte Esterase Urine RBC Urine WBC Urine WBC Clumps Ur Squamous Epith Cells Ur Transition Epith Cell Ur Renal Epithelial Cell Amorphous Sediment Urine Bacteria Hyaline Casts Granular Casts Urine Mucus Micro UA Comment Urine Culture Comments Urine Eosinophils Urine Osmolality Ur Random Creatinine Ur Random Sodium Pleural pH Pleural WBC Pleural Nuc Cells Pleural RBC Pleural Neutrophils Pleural Eosinophils Pleural Lymphocytes Pleural Monocytes Pleural Histocytes Pleural Mesothelial Pleural Total Protein Pleural Amylase Pleural LDH Pleural Glucose Nasal Screen MRSA (PCR) Stl C.difficile Tox PCR St C. diff Tox Epid 027 Vancomycin Trough 24.6 H Random Vancomycin Phenytoin Free Phenytoin LOWELL Screen RPR Blood Type Antibody Screen MTS Gel Crossmatch Blood Bank Comment 07/26/18 07/26/18 07/26/18 11:21 11:24 13:15 WBC 11.2 H RBC 2.75 L Hgb 7.7 L Hct 24.8 L MCV 89.9 MCH 28.1 MCHC 31.2 L RDW 19.4 H Plt Count 399 MPV 9.5 Prelim Diff (Auto) Neut % (Auto) 60.7 Lymph % (Auto) 28.3 [place] % (Auto) 8.6 H Eos % (Auto) 2.0 Baso % (Auto) 0.4 Neut # (Auto) 6.8 Lymph # (Auto) 3.2 [place] # (Auto) 1.0 H Eos # (Auto) 0.2 Baso # (Auto) 0.0 CBC Comment WBC Differential . Total Counted Neutrophils % (Manual) Seg Neuts % (Manual) Band Neutrophils % Band Neuts % (Manual) Lymphocytes % Lymphocytes % (Manual) Monocytes % Monocytes % (Manual) Eosinophils % Eosinophils % (Manual) Basophils % Metamyelocytes % (Man) Neutrophils # (Manual) Abs Neuts (Manual) Metamyelocytes Myelocytes Nucleated RBCs Differential Comment Auto diff final Smudge Cells Toxic Granulation Toxic Vacuolation Dohle Bodies Platelet Estimate Platelet Morphology Plt Morphology Comment Basophilic Stippling Spherocytes Tear Drop Cells Ovalocytes Acanthocytes (Spur) RBC Morph Comment ESR Hematology Comments PT INR APTT Fibrinogen Puncture Site Patient Temperature HCO3 Base Excess O2 Saturation ABG pH ABG pCO2 ABG pO2 ABG HCO3 ABG O2 Content ABG Base Excess ABG Carboxyhemoglobin ABG Methemoglobin Stepan Test Hemoglobin Carboxyhemoglobin O2 Delivery Device Liter Flow Vent Setting Inspired O2 Critical Value Sodium Potassium Chloride Carbon Dioxide Anion Gap BUN Creatinine Estimated GFR POC Glucose 219 H 201 H Random Glucose Hemoglobin A1c Lactic Acid Calcium Prot Corrected Calcium Phosphorus Magnesium Total Bilirubin Direct Bilirubin Indirect Bilirubin AST ALT Alkaline Phosphatase Ammonia Total Creatine Kinase Troponin I C-Reactive Protein B-Natriuretic Peptide Total Protein Albumin Prealbumin Triglycerides Cholesterol LDL Cholesterol HDL Cholesterol Cholesterol/HDL Ratio Thiamine Vitamin B12 Procalcitonin Free T4 TSH 3rd Generation Urine Color Urine Clarity Urine Turbidity Urine pH Ur Specific [place] Urine Protein Urine Glucose (UA) Urine Ketones Urine Occult Blood Urine Nitrate Urine Nitrite Urine Bilirubin Urine Urobilinogen Ur Leukocyte Esterase Urine RBC Urine WBC Urine WBC Clumps Ur Squamous Epith Cells Ur Transition Epith Cell Ur Renal Epithelial Cell Amorphous Sediment Urine Bacteria Hyaline Casts Granular Casts Urine Mucus Micro UA Comment Urine Culture Comments Urine Eosinophils Urine Osmolality Ur Random Creatinine Ur Random Sodium Pleural pH Pleural WBC Pleural Nuc Cells Pleural RBC Pleural Neutrophils Pleural Eosinophils Pleural Lymphocytes Pleural Monocytes Pleural Histocytes Pleural Mesothelial Pleural Total Protein Pleural Amylase Pleural LDH Pleural Glucose Nasal Screen MRSA (PCR) Stl C.difficile Tox PCR St C. diff Tox Epid 027 Vancomycin Trough Random Vancomycin Phenytoin Free Phenytoin LOWELL Screen RPR Blood Type Antibody Screen MTS Gel Crossmatch Blood Bank Comment 01/20/18 01/21/18 01/21/18 18:02 00:27 06:23 WBC RBC Hgb Hct MCV MCH MCHC RDW Plt Count MPV Prelim Diff (Auto) Neut % (Auto) Lymph % (Auto) [place] % (Auto) Eos % (Auto) Baso % (Auto) Neut # (Auto) Lymph # (Auto) [place] # (Auto) Eos # (Auto) Baso # (Auto) CBC Comment WBC Differential Total Counted Neutrophils % (Manual) Seg Neuts % (Manual) Band Neutrophils % Band Neuts % (Manual) Lymphocytes % Lymphocytes % (Manual) Monocytes % Monocytes % (Manual) Eosinophils % Eosinophils % (Manual) Basophils % Metamyelocytes % (Man) Neutrophils # (Manual) Abs Neuts (Manual) Metamyelocytes Myelocytes Nucleated RBCs Differential Comment Smudge Cells Toxic Granulation Toxic Vacuolation Dohle Bodies Platelet Estimate Platelet Morphology Plt Morphology Comment Basophilic Stippling Spherocytes Tear Drop Cells Ovalocytes Acanthocytes (Spur) RBC Morph Comment ESR Hematology Comments PT INR APTT Fibrinogen Puncture Site Patient Temperature HCO3 Base Excess O2 Saturation ABG pH ABG pCO2 ABG pO2 ABG HCO3 ABG O2 Content ABG Base Excess ABG Carboxyhemoglobin ABG Methemoglobin Stepan Test Hemoglobin Carboxyhemoglobin O2 Delivery Device Liter Flow Vent Setting Inspired O2 Critical Value Sodium Potassium Chloride Carbon Dioxide Anion Gap BUN Creatinine Estimated GFR POC Glucose 194 H 156 H 128 H Random Glucose Hemoglobin A1c Lactic Acid Calcium Prot Corrected Calcium Phosphorus Magnesium Total Bilirubin Direct Bilirubin Indirect Bilirubin AST ALT Alkaline Phosphatase Ammonia Total Creatine Kinase Troponin I C-Reactive Protein B-Natriuretic Peptide Total Protein Albumin Prealbumin Triglycerides Cholesterol LDL Cholesterol HDL Cholesterol Cholesterol/HDL Ratio Thiamine Vitamin B12 Procalcitonin Free T4 TSH 3rd Generation Urine Color Urine Clarity Urine Turbidity Urine pH Ur Specific [place] Urine Protein Urine Glucose (UA) Urine Ketones Urine Occult Blood Urine Nitrate Urine Nitrite Urine Bilirubin Urine Urobilinogen Ur Leukocyte Esterase Urine RBC Urine WBC Urine WBC Clumps Ur Squamous Epith Cells Ur Transition Epith Cell Ur Renal Epithelial Cell Amorphous Sediment Urine Bacteria Hyaline Casts Granular Casts Urine Mucus Micro UA Comment Urine Culture Comments Urine Eosinophils Urine Osmolality Ur Random Creatinine Ur Random Sodium Pleural pH Pleural WBC Pleural Nuc Cells Pleural RBC Pleural Neutrophils Pleural Eosinophils Pleural Lymphocytes Pleural Monocytes Pleural Histocytes Pleural Mesothelial Pleural Total Protein Pleural Amylase Pleural LDH Pleural Glucose Nasal Screen MRSA (PCR) Stl C.difficile Tox PCR St C. diff Tox Epid 027 Vancomycin Trough Random Vancomycin Phenytoin Free Phenytoin LOWELL Screen RPR Blood Type Antibody Screen MTS Gel Crossmatch Blood Bank Comment 01/21/18 01/21/18 01/21/18 08:13 10:34 12:38 WBC RBC Hgb Hct MCV MCH MCHC RDW Plt Count MPV Prelim Diff (Auto) Neut % (Auto) Lymph % (Auto) [place] % (Auto) Eos % (Auto) Baso % (Auto) Neut # (Auto) Lymph # (Auto) [place] # (Auto) Eos # (Auto) Baso # (Auto) CBC Comment WBC Differential Total Counted Neutrophils % (Manual) Seg Neuts % (Manual) Band Neutrophils % Band Neuts % (Manual) Lymphocytes % Lymphocytes % (Manual) Monocytes % Monocytes % (Manual) Eosinophils % Eosinophils % (Manual) Basophils % Metamyelocytes % (Man) Neutrophils # (Manual) Abs Neuts (Manual) Metamyelocytes Myelocytes Nucleated RBCs Differential Comment Smudge Cells Toxic Granulation Toxic Vacuolation Dohle Bodies Platelet Estimate Platelet Morphology Plt Morphology Comment Basophilic Stippling Spherocytes Tear Drop Cells Ovalocytes Acanthocytes (Spur) RBC Morph Comment ESR Hematology Comments PT 44.7 H D INR 4.5 APTT Fibrinogen Puncture Site Patient Temperature HCO3 Base Excess O2 Saturation ABG pH ABG pCO2 ABG pO2 ABG HCO3 ABG O2 Content ABG Base Excess ABG Carboxyhemoglobin ABG Methemoglobin Stepan Test Hemoglobin Carboxyhemoglobin O2 Delivery Device Liter Flow Vent Setting Inspired O2 Critical Value Sodium Potassium Chloride Carbon Dioxide Anion Gap BUN Creatinine Estimated GFR POC Glucose 124 H 121 H Random Glucose Hemoglobin A1c Lactic Acid Calcium Prot Corrected Calcium Phosphorus Magnesium Total Bilirubin Direct Bilirubin Indirect Bilirubin AST ALT Alkaline Phosphatase Ammonia Total Creatine Kinase Troponin I C-Reactive Protein B-Natriuretic Peptide Total Protein Albumin Prealbumin Triglycerides Cholesterol LDL Cholesterol HDL Cholesterol Cholesterol/HDL Ratio Thiamine Vitamin B12 Procalcitonin Free T4 TSH 3rd Generation Urine Color Urine Clarity Urine Turbidity Urine pH Ur Specific [place] Urine Protein Urine Glucose (UA) Urine Ketones Urine Occult Blood Urine Nitrate Urine Nitrite Urine Bilirubin Urine Urobilinogen Ur Leukocyte Esterase Urine RBC Urine WBC Urine WBC Clumps Ur Squamous Epith Cells Ur Transition Epith Cell Ur Renal Epithelial Cell Amorphous Sediment Urine Bacteria Hyaline Casts Granular Casts Urine Mucus Micro UA Comment Urine Culture Comments Urine Eosinophils Urine Osmolality Ur Random Creatinine Ur Random Sodium Pleural pH Pleural WBC Pleural Nuc Cells Pleural RBC Pleural Neutrophils Pleural Eosinophils Pleural Lymphocytes Pleural Monocytes Pleural Histocytes Pleural Mesothelial Pleural Total Protein Pleural Amylase Pleural LDH Pleural Glucose Nasal Screen MRSA (PCR) Stl C.difficile Tox PCR St C. diff Tox Epid 027 Vancomycin Trough Random Vancomycin Phenytoin Free Phenytoin LOWELL Screen RPR Blood Type Antibody Screen MTS Gel Crossmatch Blood Bank Comment 01/21/18 01/21/18 01/21/18 14:15 16:38 23:33 WBC 10.7 RBC 2.62 L Hgb 7.8 L Hct 25.0 L MCV 95.5 D MCH 29.7 MCHC 31.1 L RDW 20.1 H Plt Count 389 MPV 9.4 Prelim Diff (Auto) Neut % (Auto) 51.0 Lymph % (Auto) 37.0 [place] % (Auto) 8.5 H Eos % (Auto) 2.9 Baso % (Auto) 0.6 Neut # (Auto) 5.5 Lymph # (Auto) 4.0 [place] # (Auto) 0.9 Eos # (Auto) 0.3 Baso # (Auto) 0.1 CBC Comment WBC Differential . Total Counted Neutrophils % (Manual) Seg Neuts % (Manual) Band Neutrophils % Band Neuts % (Manual) Lymphocytes % Lymphocytes % (Manual) Monocytes % Monocytes % (Manual) Eosinophils % Eosinophils % (Manual) Basophils % Metamyelocytes % (Man) Neutrophils # (Manual) Abs Neuts (Manual) Metamyelocytes Myelocytes Nucleated RBCs Differential Comment Auto diff final Smudge Cells Toxic Granulation Toxic Vacuolation Dohle Bodies Platelet Estimate Platelet Morphology Plt Morphology Comment Basophilic Stippling Spherocytes Tear Drop Cells Ovalocytes Acanthocytes (Spur) RBC Morph Comment ESR Hematology Comments PT INR APTT Fibrinogen Puncture Site Patient Temperature HCO3 Base Excess O2 Saturation ABG pH ABG pCO2 ABG pO2 ABG HCO3 ABG O2 Content ABG Base Excess ABG Carboxyhemoglobin ABG Methemoglobin Stepan Test Hemoglobin Carboxyhemoglobin O2 Delivery Device Liter Flow Vent Setting Inspired O2 Critical Value Sodium Potassium Chloride Carbon Dioxide Anion Gap BUN Creatinine Estimated GFR POC Glucose 118 H 156 H Random Glucose Hemoglobin A1c Lactic Acid Calcium Prot Corrected Calcium Phosphorus Magnesium Total Bilirubin Direct Bilirubin Indirect Bilirubin AST ALT Alkaline Phosphatase Ammonia Total Creatine Kinase Troponin I C-Reactive Protein B-Natriuretic Peptide Total Protein Albumin Prealbumin Triglycerides Cholesterol LDL Cholesterol HDL Cholesterol Cholesterol/HDL Ratio Thiamine Vitamin B12 Procalcitonin Free T4 TSH 3rd Generation Urine Color Urine Clarity Urine Turbidity Urine pH Ur Specific [place] Urine Protein Urine Glucose (UA) Urine Ketones Urine Occult Blood Urine Nitrate Urine Nitrite Urine Bilirubin Urine Urobilinogen Ur Leukocyte Esterase Urine RBC Urine WBC Urine WBC Clumps Ur Squamous Epith Cells Ur Transition Epith Cell Ur Renal Epithelial Cell Amorphous Sediment Urine Bacteria Hyaline Casts Granular Casts Urine Mucus Micro UA Comment Urine Culture Comments Urine Eosinophils Urine Osmolality Ur Random Creatinine Ur Random Sodium Pleural pH Pleural WBC Pleural Nuc Cells Pleural RBC Pleural Neutrophils Pleural Eosinophils Pleural Lymphocytes Pleural Monocytes Pleural Histocytes Pleural Mesothelial Pleural Total Protein Pleural Amylase Pleural LDH Pleural Glucose Nasal Screen MRSA (PCR) Stl C.difficile Tox PCR St C. diff Tox Epid 027 Vancomycin Trough Random Vancomycin Phenytoin Free Phenytoin LOWELL Screen RPR Blood Type Antibody Screen MTS Gel Crossmatch Blood Bank Comment 01/22/18 01/22/18 01/22/18 06:45 08:18 08:41 WBC RBC Hgb Hct MCV MCH MCHC RDW Plt Count MPV Prelim Diff (Auto) Neut % (Auto) Lymph % (Auto) [place] % (Auto) Eos % (Auto) Baso % (Auto) Neut # (Auto) Lymph # (Auto) [place] # (Auto) Eos # (Auto) Baso # (Auto) CBC Comment WBC Differential Total Counted Neutrophils % (Manual) Seg Neuts % (Manual) Band Neutrophils % Band Neuts % (Manual) Lymphocytes % Lymphocytes % (Manual) Monocytes % Monocytes % (Manual) Eosinophils % Eosinophils % (Manual) Basophils % Metamyelocytes % (Man) Neutrophils # (Manual) Abs Neuts (Manual) Metamyelocytes Myelocytes Nucleated RBCs Differential Comment Smudge Cells Toxic Granulation Toxic Vacuolation Dohle Bodies Platelet Estimate Platelet Morphology Plt Morphology Comment Basophilic Stippling Spherocytes Tear Drop Cells Ovalocytes Acanthocytes (Spur) RBC Morph Comment ESR Hematology Comments PT 35.0 H INR 3.5 APTT Fibrinogen Puncture Site Patient Temperature HCO3 Base Excess O2 Saturation ABG pH ABG pCO2 ABG pO2 ABG HCO3 ABG O2 Content ABG Base Excess ABG Carboxyhemoglobin ABG Methemoglobin Stepan Test Hemoglobin Carboxyhemoglobin O2 Delivery Device Liter Flow Vent Setting Inspired O2 Critical Value Sodium Potassium Chloride Carbon Dioxide Anion Gap BUN Creatinine Estimated GFR POC Glucose 180 H 197 H Random Glucose Hemoglobin A1c Lactic Acid Calcium Prot Corrected Calcium Phosphorus Magnesium Total Bilirubin Direct Bilirubin Indirect Bilirubin AST ALT Alkaline Phosphatase Ammonia Total Creatine Kinase Troponin I C-Reactive Protein B-Natriuretic Peptide Total Protein Albumin Prealbumin Triglycerides Cholesterol LDL Cholesterol HDL Cholesterol Cholesterol/HDL Ratio Thiamine Vitamin B12 Procalcitonin Free T4 TSH 3rd Generation Urine Color Urine Clarity Urine Turbidity Urine pH Ur Specific [place] Urine Protein Urine Glucose (UA) Urine Ketones Urine Occult Blood Urine Nitrate Urine Nitrite Urine Bilirubin Urine Urobilinogen Ur Leukocyte Esterase Urine RBC Urine WBC Urine WBC Clumps Ur Squamous Epith Cells Ur Transition Epith Cell Ur Renal Epithelial Cell Amorphous Sediment Urine Bacteria Hyaline Casts Granular Casts Urine Mucus Micro UA Comment Urine Culture Comments Urine Eosinophils Urine Osmolality Ur Random Creatinine Ur Random Sodium Pleural pH Pleural WBC Pleural Nuc Cells Pleural RBC Pleural Neutrophils Pleural Eosinophils Pleural Lymphocytes Pleural Monocytes Pleural Histocytes Pleural Mesothelial Pleural Total Protein Pleural Amylase Pleural LDH Pleural Glucose Nasal Screen MRSA (PCR) Stl C.difficile Tox PCR St C. diff Tox Epid 027 Vancomycin Trough Random Vancomycin Phenytoin Free Phenytoin LOWELL Screen RPR Blood Type Antibody Screen MTS Gel Crossmatch Blood Bank Comment 01/22/18 01/22/18 01/22/18 08:41 08:41 12:16 WBC RBC Hgb 8.3 L Hct 26.1 L MCV MCH MCHC RDW Plt Count MPV Prelim Diff (Auto) Neut % (Auto) Lymph % (Auto) [place] % (Auto) Eos % (Auto) Baso % (Auto) Neut # (Auto) Lymph # (Auto) [place] # (Auto) Eos # (Auto) Baso # (Auto) CBC Comment WBC Differential Total Counted Neutrophils % (Manual) Seg Neuts % (Manual) Band Neutrophils % Band Neuts % (Manual) Lymphocytes % Lymphocytes % (Manual) Monocytes % Monocytes % (Manual) Eosinophils % Eosinophils % (Manual) Basophils % Metamyelocytes % (Man) Neutrophils # (Manual) Abs Neuts (Manual) Metamyelocytes Myelocytes Nucleated RBCs Differential Comment Smudge Cells Toxic Granulation Toxic Vacuolation Dohle Bodies Platelet Estimate Platelet Morphology Plt Morphology Comment Basophilic Stippling Spherocytes Tear Drop Cells Ovalocytes Acanthocytes (Spur) RBC Morph Comment ESR Hematology Comments PT INR APTT Fibrinogen Puncture Site Patient Temperature HCO3 Base Excess O2 Saturation ABG pH ABG pCO2 ABG pO2 ABG HCO3 ABG O2 Content ABG Base Excess ABG Carboxyhemoglobin ABG Methemoglobin Stepan Test Hemoglobin Carboxyhemoglobin O2 Delivery Device Liter Flow Vent Setting Inspired O2 Critical Value Sodium 149 H Potassium 4.7 Chloride 120 H Carbon Dioxide 21.1 Anion Gap 8 BUN 53 H Creatinine 1.55 H Estimated GFR 44 L POC Glucose 207 H Random Glucose 169 H Hemoglobin A1c Lactic Acid Calcium 7.6 L Prot Corrected Calcium Phosphorus Magnesium Total Bilirubin 0.3 Direct Bilirubin Indirect Bilirubin AST 125 H ALT 73 Alkaline Phosphatase 222 H Ammonia Total Creatine Kinase Troponin I C-Reactive Protein B-Natriuretic Peptide Total Protein 6.7 Albumin 1.2 L Prealbumin Triglycerides Cholesterol LDL Cholesterol HDL Cholesterol Cholesterol/HDL Ratio Thiamine Vitamin B12 Procalcitonin Free T4 TSH 3rd Generation Urine Color Urine Clarity Urine Turbidity Urine pH Ur Specific [place] Urine Protein Urine Glucose (UA) Urine Ketones Urine Occult Blood Urine Nitrate Urine Nitrite Urine Bilirubin Urine Urobilinogen Ur Leukocyte Esterase Urine RBC Urine WBC Urine WBC Clumps Ur Squamous Epith Cells Ur Transition Epith Cell Ur Renal Epithelial Cell Amorphous Sediment Urine Bacteria Hyaline Casts Granular Casts Urine Mucus Micro UA Comment Urine Culture Comments Urine Eosinophils Urine Osmolality Ur Random Creatinine Ur Random Sodium Pleural pH Pleural WBC Pleural Nuc Cells Pleural RBC Pleural Neutrophils Pleural Eosinophils Pleural Lymphocytes Pleural Monocytes Pleural Histocytes Pleural Mesothelial Pleural Total Protein Pleural Amylase Pleural LDH Pleural Glucose Nasal Screen MRSA (PCR) Stl C.difficile Tox PCR St C. diff Tox Epid 027 Vancomycin Trough Random Vancomycin Phenytoin Free Phenytoin LOWELL Screen RPR Blood Type Antibody Screen MTS Gel Crossmatch Blood Bank Comment 01/22/18 01/22/18 01/22/18 18:21 20:46 23:55 WBC RBC Hgb Hct MCV MCH MCHC RDW Plt Count MPV Prelim Diff (Auto) Neut % (Auto) Lymph % (Auto) [place] % (Auto) Eos % (Auto) Baso % (Auto) Neut # (Auto) Lymph # (Auto) [place] # (Auto) Eos # (Auto) Baso # (Auto) CBC Comment WBC Differential Total Counted Neutrophils % (Manual) Seg Neuts % (Manual) Band Neutrophils % Band Neuts % (Manual) Lymphocytes % Lymphocytes % (Manual) Monocytes % Monocytes % (Manual) Eosinophils % Eosinophils % (Manual) Basophils % Metamyelocytes % (Man) Neutrophils # (Manual) Abs Neuts (Manual) Metamyelocytes Myelocytes Nucleated RBCs Differential Comment Smudge Cells Toxic Granulation Toxic Vacuolation Dohle Bodies Platelet Estimate Platelet Morphology Plt Morphology Comment Basophilic Stippling Spherocytes Tear Drop Cells Ovalocytes Acanthocytes (Spur) RBC Morph Comment ESR Hematology Comments PT INR APTT Fibrinogen Puncture Site Patient Temperature HCO3 Base Excess O2 Saturation ABG pH ABG pCO2 ABG pO2 ABG HCO3 ABG O2 Content ABG Base Excess ABG Carboxyhemoglobin ABG Methemoglobin Stepan Test Hemoglobin Carboxyhemoglobin O2 Delivery Device Liter Flow Vent Setting Inspired O2 Critical Value Sodium Potassium Chloride Carbon Dioxide Anion Gap BUN Creatinine Estimated GFR POC Glucose 193 H 205 H 215 H Random Glucose Hemoglobin A1c Lactic Acid Calcium Prot Corrected Calcium Phosphorus Magnesium Total Bilirubin Direct Bilirubin Indirect Bilirubin AST ALT Alkaline Phosphatase Ammonia Total Creatine Kinase Troponin I C-Reactive Protein B-Natriuretic Peptide Total Protein Albumin Prealbumin Triglycerides Cholesterol LDL Cholesterol HDL Cholesterol Cholesterol/HDL Ratio Thiamine Vitamin B12 Procalcitonin Free T4 TSH 3rd Generation Urine Color Urine Clarity Urine Turbidity Urine pH Ur Specific [place] Urine Protein Urine Glucose (UA) Urine Ketones Urine Occult Blood Urine Nitrate Urine Nitrite Urine Bilirubin Urine Urobilinogen Ur Leukocyte Esterase Urine RBC Urine WBC Urine WBC Clumps Ur Squamous Epith Cells Ur Transition Epith Cell Ur Renal Epithelial Cell Amorphous Sediment Urine Bacteria Hyaline Casts Granular Casts Urine Mucus Micro UA Comment Urine Culture Comments Urine Eosinophils Urine Osmolality Ur Random Creatinine Ur Random Sodium Pleural pH Pleural WBC Pleural Nuc Cells Pleural RBC Pleural Neutrophils Pleural Eosinophils Pleural Lymphocytes Pleural Monocytes Pleural Histocytes Pleural Mesothelial Pleural Total Protein Pleural Amylase Pleural LDH Pleural Glucose Nasal Screen MRSA (PCR) Stl C.difficile Tox PCR St C. diff Tox Epid 027 Vancomycin Trough Random Vancomycin Phenytoin Free Phenytoin LOWELL Screen RPR Blood Type Antibody Screen MTS Gel Crossmatch Blood Bank Comment 01/23/18 01/23/18 01/23/18 05:56 07:41 08:55 WBC RBC Hgb Hct MCV MCH MCHC RDW Plt Count MPV Prelim Diff (Auto) Neut % (Auto) Lymph % (Auto) [place] % (Auto) Eos % (Auto) Baso % (Auto) Neut # (Auto) Lymph # (Auto) [place] # (Auto) Eos # (Auto) Baso # (Auto) CBC Comment WBC Differential Total Counted Neutrophils % (Manual) Seg Neuts % (Manual) Band Neutrophils % Band Neuts % (Manual) Lymphocytes % Lymphocytes % (Manual) Monocytes % Monocytes % (Manual) Eosinophils % Eosinophils % (Manual) Basophils % Metamyelocytes % (Man) Neutrophils # (Manual) Abs Neuts (Manual) Metamyelocytes Myelocytes Nucleated RBCs Differential Comment Smudge Cells Toxic Granulation Toxic Vacuolation Dohle Bodies Platelet Estimate Platelet Morphology Plt Morphology Comment Basophilic Stippling Spherocytes Tear Drop Cells Ovalocytes Acanthocytes (Spur) RBC Morph Comment ESR Hematology Comments PT 23.7 H D INR 2.3 APTT Fibrinogen Puncture Site Patient Temperature HCO3 Base Excess O2 Saturation ABG pH ABG pCO2 ABG pO2 ABG HCO3 ABG O2 Content ABG Base Excess ABG Carboxyhemoglobin ABG Methemoglobin Stepan Test Hemoglobin Carboxyhemoglobin O2 Delivery Device Liter Flow Vent Setting Inspired O2 Critical Value Sodium Potassium Chloride Carbon Dioxide Anion Gap BUN Creatinine Estimated GFR POC Glucose 197 H 197 H Random Glucose Hemoglobin A1c Lactic Acid Calcium Prot Corrected Calcium Phosphorus Magnesium Total Bilirubin Direct Bilirubin Indirect Bilirubin AST ALT Alkaline Phosphatase Ammonia Total Creatine Kinase Troponin I C-Reactive Protein B-Natriuretic Peptide Total Protein Albumin Prealbumin Triglycerides Cholesterol LDL Cholesterol HDL Cholesterol Cholesterol/HDL Ratio Thiamine Vitamin B12 Procalcitonin Free T4 TSH 3rd Generation Urine Color Urine Clarity Urine Turbidity Urine pH Ur Specific [place] Urine Protein Urine Glucose (UA) Urine Ketones Urine Occult Blood Urine Nitrate Urine Nitrite Urine Bilirubin Urine Urobilinogen Ur Leukocyte Esterase Urine RBC Urine WBC Urine WBC Clumps Ur Squamous Epith Cells Ur Transition Epith Cell Ur Renal Epithelial Cell Amorphous Sediment Urine Bacteria Hyaline Casts Granular Casts Urine Mucus Micro UA Comment Urine Culture Comments Urine Eosinophils Urine Osmolality Ur Random Creatinine Ur Random Sodium Pleural pH Pleural WBC Pleural Nuc Cells Pleural RBC Pleural Neutrophils Pleural Eosinophils Pleural Lymphocytes Pleural Monocytes Pleural Histocytes Pleural Mesothelial Pleural Total Protein Pleural Amylase Pleural LDH Pleural Glucose Nasal Screen MRSA (PCR) Stl C.difficile Tox PCR St C. diff Tox Epid 027 Vancomycin Trough Random Vancomycin Phenytoin Free Phenytoin LOWELL Screen RPR Blood Type Antibody Screen MTS Gel Crossmatch Blood Bank Comment 01/23/18 01/23/18 01/23/18 13:05 18:34 22:20 WBC RBC Hgb Hct MCV MCH MCHC RDW Plt Count MPV Prelim Diff (Auto) Neut % (Auto) Lymph % (Auto) [place] % (Auto) Eos % (Auto) Baso % (Auto) Neut # (Auto) Lymph # (Auto) [place] # (Auto) Eos # (Auto) Baso # (Auto) CBC Comment WBC Differential Total Counted Neutrophils % (Manual) Seg Neuts % (Manual) Band Neutrophils % Band Neuts % (Manual) Lymphocytes % Lymphocytes % (Manual) Monocytes % Monocytes % (Manual) Eosinophils % Eosinophils % (Manual) Basophils % Metamyelocytes % (Man) Neutrophils # (Manual) Abs Neuts (Manual) Metamyelocytes Myelocytes Nucleated RBCs Differential Comment Smudge Cells Toxic Granulation Toxic Vacuolation Dohle Bodies Platelet Estimate Platelet Morphology Plt Morphology Comment Basophilic Stippling Spherocytes Tear Drop Cells Ovalocytes Acanthocytes (Spur) RBC Morph Comment ESR Hematology Comments PT INR APTT Fibrinogen Puncture Site Patient Temperature HCO3 Base Excess O2 Saturation ABG pH ABG pCO2 ABG pO2 ABG HCO3 ABG O2 Content ABG Base Excess ABG Carboxyhemoglobin ABG Methemoglobin Stepan Test Hemoglobin Carboxyhemoglobin O2 Delivery Device Liter Flow Vent Setting Inspired O2 Critical Value Sodium Potassium Chloride Carbon Dioxide Anion Gap BUN Creatinine Estimated GFR POC Glucose 187 H 210 H 206 H Random Glucose Hemoglobin A1c Lactic Acid Calcium Prot Corrected Calcium Phosphorus Magnesium Total Bilirubin Direct Bilirubin Indirect Bilirubin AST ALT Alkaline Phosphatase Ammonia Total Creatine Kinase Troponin I C-Reactive Protein B-Natriuretic Peptide Total Protein Albumin Prealbumin Triglycerides Cholesterol LDL Cholesterol HDL Cholesterol Cholesterol/HDL Ratio Thiamine Vitamin B12 Procalcitonin Free T4 TSH 3rd Generation Urine Color Urine Clarity Urine Turbidity Urine pH Ur Specific [place] Urine Protein Urine Glucose (UA) Urine Ketones Urine Occult Blood Urine Nitrate Urine Nitrite Urine Bilirubin Urine Urobilinogen Ur Leukocyte Esterase Urine RBC Urine WBC Urine WBC Clumps Ur Squamous Epith Cells Ur Transition Epith Cell Ur Renal Epithelial Cell Amorphous Sediment Urine Bacteria Hyaline Casts Granular Casts Urine Mucus Micro UA Comment Urine Culture Comments Urine Eosinophils Urine Osmolality Ur Random Creatinine Ur Random Sodium Pleural pH Pleural WBC Pleural Nuc Cells Pleural RBC Pleural Neutrophils Pleural Eosinophils Pleural Lymphocytes Pleural Monocytes Pleural Histocytes Pleural Mesothelial Pleural Total Protein Pleural Amylase Pleural LDH Pleural Glucose Nasal Screen MRSA (PCR) Stl C.difficile Tox PCR St C. diff Tox Epid 027 Vancomycin Trough Random Vancomycin Phenytoin Free Phenytoin LOWELL Screen RPR Blood Type Antibody Screen MTS Gel Crossmatch Blood Bank Comment 01/23/18 01/24/18 01/24/18 23:55 07:19 09:10 WBC RBC Hgb Hct MCV MCH MCHC RDW Plt Count MPV Prelim Diff (Auto) Neut % (Auto) Lymph % (Auto) [place] % (Auto) Eos % (Auto) Baso % (Auto) Neut # (Auto) Lymph # (Auto) [place] # (Auto) Eos # (Auto) Baso # (Auto) CBC Comment WBC Differential Total Counted Neutrophils % (Manual) Seg Neuts % (Manual) Band Neutrophils % Band Neuts % (Manual) Lymphocytes % Lymphocytes % (Manual) Monocytes % Monocytes % (Manual) Eosinophils % Eosinophils % (Manual) Basophils % Metamyelocytes % (Man) Neutrophils # (Manual) Abs Neuts (Manual) Metamyelocytes Myelocytes Nucleated RBCs Differential Comment Smudge Cells Toxic Granulation Toxic Vacuolation Dohle Bodies Platelet Estimate Platelet Morphology Plt Morphology Comment Basophilic Stippling Spherocytes Tear Drop Cells Ovalocytes Acanthocytes (Spur) RBC Morph Comment ESR Hematology Comments PT 25.4 H INR 2.5 APTT Fibrinogen Puncture Site Patient Temperature HCO3 Base Excess O2 Saturation ABG pH ABG pCO2 ABG pO2 ABG HCO3 ABG O2 Content ABG Base Excess ABG Carboxyhemoglobin ABG Methemoglobin Stepan Test Hemoglobin Carboxyhemoglobin O2 Delivery Device Liter Flow Vent Setting Inspired O2 Critical Value Sodium Potassium Chloride Carbon Dioxide Anion Gap BUN Creatinine Estimated GFR POC Glucose 192 H 142 H Random Glucose Hemoglobin A1c Lactic Acid Calcium Prot Corrected Calcium Phosphorus Magnesium Total Bilirubin Direct Bilirubin Indirect Bilirubin AST ALT Alkaline Phosphatase Ammonia Total Creatine Kinase Troponin I C-Reactive Protein B-Natriuretic Peptide Total Protein Albumin Prealbumin Triglycerides Cholesterol LDL Cholesterol HDL Cholesterol Cholesterol/HDL Ratio Thiamine Vitamin B12 Procalcitonin Free T4 TSH 3rd Generation Urine Color Urine Clarity Urine Turbidity Urine pH Ur Specific [place] Urine Protein Urine Glucose (UA) Urine Ketones Urine Occult Blood Urine Nitrate Urine Nitrite Urine Bilirubin Urine Urobilinogen Ur Leukocyte Esterase Urine RBC Urine WBC Urine WBC Clumps Ur Squamous Epith Cells Ur Transition Epith Cell Ur Renal Epithelial Cell Amorphous Sediment Urine Bacteria Hyaline Casts Granular Casts Urine Mucus Micro UA Comment Urine Culture Comments Urine Eosinophils Urine Osmolality Ur Random Creatinine Ur Random Sodium Pleural pH Pleural WBC Pleural Nuc Cells Pleural RBC Pleural Neutrophils Pleural Eosinophils Pleural Lymphocytes Pleural Monocytes Pleural Histocytes Pleural Mesothelial Pleural Total Protein Pleural Amylase Pleural LDH Pleural Glucose Nasal Screen MRSA (PCR) Stl C.difficile Tox PCR St C. diff Tox Epid 027 Vancomycin Trough Random Vancomycin Phenytoin Free Phenytoin LOWELL Screen RPR Blood Type Antibody Screen MTS Gel Crossmatch Blood Bank Comment 01/24/18 01/24/18 01/25/18 13:34 16:24 00:12 WBC RBC Hgb Hct MCV MCH MCHC RDW Plt Count MPV Prelim Diff (Auto) Neut % (Auto) Lymph % (Auto) [place] % (Auto) Eos % (Auto) Baso % (Auto) Neut # (Auto) Lymph # (Auto) [place] # (Auto) Eos # (Auto) Baso # (Auto) CBC Comment WBC Differential Total Counted Neutrophils % (Manual) Seg Neuts % (Manual) Band Neutrophils % Band Neuts % (Manual) Lymphocytes % Lymphocytes % (Manual) Monocytes % Monocytes % (Manual) Eosinophils % Eosinophils % (Manual) Basophils % Metamyelocytes % (Man) Neutrophils # (Manual) Abs Neuts (Manual) Metamyelocytes Myelocytes Nucleated RBCs Differential Comment Smudge Cells Toxic Granulation Toxic Vacuolation Dohle Bodies Platelet Estimate Platelet Morphology Plt Morphology Comment Basophilic Stippling Spherocytes Tear Drop Cells Ovalocytes Acanthocytes (Spur) RBC Morph Comment ESR Hematology Comments PT INR APTT Fibrinogen Puncture Site Patient Temperature HCO3 Base Excess O2 Saturation ABG pH ABG pCO2 ABG pO2 ABG HCO3 ABG O2 Content ABG Base Excess ABG Carboxyhemoglobin ABG Methemoglobin Stepan Test Hemoglobin Carboxyhemoglobin O2 Delivery Device Liter Flow Vent Setting Inspired O2 Critical Value Sodium Potassium Chloride Carbon Dioxide Anion Gap BUN Creatinine Estimated GFR POC Glucose 155 H 147 H 149 H Random Glucose Hemoglobin A1c Lactic Acid Calcium Prot Corrected Calcium Phosphorus Magnesium Total Bilirubin Direct Bilirubin Indirect Bilirubin AST ALT Alkaline Phosphatase Ammonia Total Creatine Kinase Troponin I C-Reactive Protein B-Natriuretic Peptide Total Protein Albumin Prealbumin Triglycerides Cholesterol LDL Cholesterol HDL Cholesterol Cholesterol/HDL Ratio Thiamine Vitamin B12 Procalcitonin Free T4 TSH 3rd Generation Urine Color Urine Clarity Urine Turbidity Urine pH Ur Specific [place] Urine Protein Urine Glucose (UA) Urine Ketones Urine Occult Blood Urine Nitrate Urine Nitrite Urine Bilirubin Urine Urobilinogen Ur Leukocyte Esterase Urine RBC Urine WBC Urine WBC Clumps Ur Squamous Epith Cells Ur Transition Epith Cell Ur Renal Epithelial Cell Amorphous Sediment Urine Bacteria Hyaline Casts Granular Casts Urine Mucus Micro UA Comment Urine Culture Comments Urine Eosinophils Urine Osmolality Ur Random Creatinine Ur Random Sodium Pleural pH Pleural WBC Pleural Nuc Cells Pleural RBC Pleural Neutrophils Pleural Eosinophils Pleural Lymphocytes Pleural Monocytes Pleural Histocytes Pleural Mesothelial Pleural Total Protein Pleural Amylase Pleural LDH Pleural Glucose Nasal Screen MRSA (PCR) Stl C.difficile Tox PCR St C. diff Tox Epid 027 Vancomycin Trough Random Vancomycin Phenytoin Free Phenytoin LOWELL Screen RPR Blood Type Antibody Screen MTS Gel Crossmatch Blood Bank Comment 01/25/18 01/25/18 01/25/18 07:05 09:16 09:42 WBC RBC Hgb Hct MCV MCH MCHC RDW Plt Count MPV Prelim Diff (Auto) Neut % (Auto) Lymph % (Auto) [place] % (Auto) Eos % (Auto) Baso % (Auto) Neut # (Auto) Lymph # (Auto) [place] # (Auto) Eos # (Auto) Baso # (Auto) CBC Comment WBC Differential Total Counted Neutrophils % (Manual) Seg Neuts % (Manual) Band Neutrophils % Band Neuts % (Manual) Lymphocytes % Lymphocytes % (Manual) Monocytes % Monocytes % (Manual) Eosinophils % Eosinophils % (Manual) Basophils % Metamyelocytes % (Man) Neutrophils # (Manual) Abs Neuts (Manual) Metamyelocytes Myelocytes Nucleated RBCs Differential Comment Smudge Cells Toxic Granulation Toxic Vacuolation Dohle Bodies Platelet Estimate Platelet Morphology Plt Morphology Comment Basophilic Stippling Spherocytes Tear Drop Cells Ovalocytes Acanthocytes (Spur) RBC Morph Comment ESR Hematology Comments PT INR APTT Fibrinogen Puncture Site Patient Temperature HCO3 Base Excess O2 Saturation ABG pH ABG pCO2 ABG pO2 ABG HCO3 ABG O2 Content ABG Base Excess ABG Carboxyhemoglobin ABG Methemoglobin Stepan Test Hemoglobin Carboxyhemoglobin O2 Delivery Device Liter Flow Vent Setting Inspired O2 Critical Value Sodium 143 Potassium 4.4 Chloride 114 H Carbon Dioxide 21.0 Anion Gap 8 BUN 55 H Creatinine 1.22 Estimated GFR 57 L POC Glucose 153 H 154 H Random Glucose 134 H Hemoglobin A1c Lactic Acid Calcium 7.5 L Prot Corrected Calcium Phosphorus Magnesium Total Bilirubin 0.2 Direct Bilirubin Indirect Bilirubin AST 89 H ALT 70 Alkaline Phosphatase 208 H Ammonia Total Creatine Kinase Troponin I C-Reactive Protein B-Natriuretic Peptide Total Protein 6.3 L Albumin 1.1 L Prealbumin Triglycerides Cholesterol LDL Cholesterol HDL Cholesterol Cholesterol/HDL Ratio Thiamine Vitamin B12 Procalcitonin Free T4 TSH 3rd Generation Urine Color Urine Clarity Urine Turbidity Urine pH Ur Specific [place] Urine Protein Urine Glucose (UA) Urine Ketones Urine Occult Blood Urine Nitrate Urine Nitrite Urine Bilirubin Urine Urobilinogen Ur Leukocyte Esterase Urine RBC Urine WBC Urine WBC Clumps Ur Squamous Epith Cells Ur Transition Epith Cell Ur Renal Epithelial Cell Amorphous Sediment Urine Bacteria Hyaline Casts Granular Casts Urine Mucus Micro UA Comment Urine Culture Comments Urine Eosinophils Urine Osmolality Ur Random Creatinine Ur Random Sodium Pleural pH Pleural WBC Pleural Nuc Cells Pleural RBC Pleural Neutrophils Pleural Eosinophils Pleural Lymphocytes Pleural Monocytes Pleural Histocytes Pleural Mesothelial Pleural Total Protein Pleural Amylase Pleural LDH Pleural Glucose Nasal Screen MRSA (PCR) Stl C.difficile Tox PCR St C. diff Tox Epid 027 Vancomycin Trough Random Vancomycin Phenytoin Free Phenytoin LOWELL Screen RPR Blood Type Antibody Screen MTS Gel Crossmatch Blood Bank Comment 0701/25/18 01/26/18 09:42 12:21 00:20 WBC RBC Hgb Hct MCV MCH MCHC RDW Plt Count MPV Prelim Diff (Auto) Neut % (Auto) Lymph % (Auto) [place] % (Auto) Eos % (Auto) Baso % (Auto) Neut # (Auto) Lymph # (Auto) [place] # (Auto) Eos # (Auto) Baso # (Auto) CBC Comment WBC Differential Total Counted Neutrophils % (Manual) Seg Neuts % (Manual) Band Neutrophils % Band Neuts % (Manual) Lymphocytes % Lymphocytes % (Manual) Monocytes % Monocytes % (Manual) Eosinophils % Eosinophils % (Manual) Basophils % Metamyelocytes % (Man) Neutrophils # (Manual) Abs Neuts (Manual) Metamyelocytes Myelocytes Nucleated RBCs Differential Comment Smudge Cells Toxic Granulation Toxic Vacuolation Dohle Bodies Platelet Estimate Platelet Morphology Plt Morphology Comment Basophilic Stippling Spherocytes Tear Drop Cells Ovalocytes Acanthocytes (Spur) RBC Morph Comment ESR Hematology Comments PT 25.5 H INR 2.5 APTT Fibrinogen Puncture Site Patient Temperature HCO3 Base Excess O2 Saturation ABG pH ABG pCO2 ABG pO2 ABG HCO3 ABG O2 Content ABG Base Excess ABG Carboxyhemoglobin ABG Methemoglobin Stepan Test Hemoglobin Carboxyhemoglobin O2 Delivery Device Liter Flow Vent Setting Inspired O2 Critical Value Sodium Potassium Chloride Carbon Dioxide Anion Gap BUN Creatinine Estimated GFR POC Glucose 139 H 180 H Random Glucose Hemoglobin A1c Lactic Acid Calcium Prot Corrected Calcium Phosphorus Magnesium Total Bilirubin Direct Bilirubin Indirect Bilirubin AST ALT Alkaline Phosphatase Ammonia Total Creatine Kinase Troponin I C-Reactive Protein B-Natriuretic Peptide Total Protein Albumin Prealbumin Triglycerides Cholesterol LDL Cholesterol HDL Cholesterol Cholesterol/HDL Ratio Thiamine Vitamin B12 Procalcitonin Free T4 TSH 3rd Generation Urine Color Urine Clarity Urine Turbidity Urine pH Ur Specific [place] Urine Protein Urine Glucose (UA) Urine Ketones Urine Occult Blood Urine Nitrate Urine Nitrite Urine Bilirubin Urine Urobilinogen Ur Leukocyte Esterase Urine RBC Urine WBC Urine WBC Clumps Ur Squamous Epith Cells Ur Transition Epith Cell Ur Renal Epithelial Cell Amorphous Sediment Urine Bacteria Hyaline Casts Granular Casts Urine Mucus Micro UA Comment Urine Culture Comments Urine Eosinophils Urine Osmolality Ur Random Creatinine Ur Random Sodium Pleural pH Pleural WBC Pleural Nuc Cells Pleural RBC Pleural Neutrophils Pleural Eosinophils Pleural Lymphocytes Pleural Monocytes Pleural Histocytes Pleural Mesothelial Pleural Total Protein Pleural Amylase Pleural LDH Pleural Glucose Nasal Screen MRSA (PCR) Stl C.difficile Tox PCR St C. diff Tox Epid 027 Vancomycin Trough Random Vancomycin Phenytoin Free Phenytoin LOWELL Screen RPR Blood Type Antibody Screen MTS Gel Crossmatch Blood Bank Comment 01/26/18 01/26/18 01/26/18 06:51 11:35 11:35 WBC RBC Hgb Hct MCV MCH MCHC RDW Plt Count MPV Prelim Diff (Auto) Neut % (Auto) Lymph % (Auto) [place] % (Auto) Eos % (Auto) Baso % (Auto) Neut # (Auto) Lymph # (Auto) [place] # (Auto) Eos # (Auto) Baso # (Auto) CBC Comment WBC Differential Total Counted Neutrophils % (Manual) Seg Neuts % (Manual) Band Neutrophils % Band Neuts % (Manual) Lymphocytes % Lymphocytes % (Manual) Monocytes % Monocytes % (Manual) Eosinophils % Eosinophils % (Manual) Basophils % Metamyelocytes % (Man) Neutrophils # (Manual) Abs Neuts (Manual) Metamyelocytes Myelocytes Nucleated RBCs Differential Comment Smudge Cells Toxic Granulation Toxic Vacuolation Dohle Bodies Platelet Estimate Platelet Morphology Plt Morphology Comment Basophilic Stippling Spherocytes Tear Drop Cells Ovalocytes Acanthocytes (Spur) RBC Morph Comment ESR Hematology Comments PT 24.7 H INR 2.4 APTT Fibrinogen Puncture Site Patient Temperature HCO3 Base Excess O2 Saturation ABG pH ABG pCO2 ABG pO2 ABG HCO3 ABG O2 Content ABG Base Excess ABG Carboxyhemoglobin ABG Methemoglobin Stepan Test Hemoglobin Carboxyhemoglobin O2 Delivery Device Liter Flow Vent Setting Inspired O2 Critical Value Sodium 145 Potassium 4.6 Chloride 114 H Carbon Dioxide 21.7 Anion Gap 9 BUN 51 H Creatinine 1.29 Estimated GFR 54 L POC Glucose 143 H Random Glucose 119 H Hemoglobin A1c Lactic Acid Calcium 7.6 L Prot Corrected Calcium Phosphorus Magnesium Total Bilirubin 0.2 Direct Bilirubin Indirect Bilirubin AST 116 H ALT 78 Alkaline Phosphatase 239 H Ammonia Total Creatine Kinase Troponin I C-Reactive Protein B-Natriuretic Peptide Total Protein 6.3 L Albumin 1.2 L Prealbumin Triglycerides Cholesterol LDL Cholesterol HDL Cholesterol Cholesterol/HDL Ratio Thiamine Vitamin B12 Procalcitonin Free T4 TSH 3rd Generation Urine Color Urine Clarity Urine Turbidity Urine pH Ur Specific [place] Urine Protein Urine Glucose (UA) Urine Ketones Urine Occult Blood Urine Nitrate Urine Nitrite Urine Bilirubin Urine Urobilinogen Ur Leukocyte Esterase Urine RBC Urine WBC Urine WBC Clumps Ur Squamous Epith Cells Ur Transition Epith Cell Ur Renal Epithelial Cell Amorphous Sediment Urine Bacteria Hyaline Casts Granular Casts Urine Mucus Micro UA Comment Urine Culture Comments Urine Eosinophils Urine Osmolality Ur Random Creatinine Ur Random Sodium Pleural pH Pleural WBC Pleural Nuc Cells Pleural RBC Pleural Neutrophils Pleural Eosinophils Pleural Lymphocytes Pleural Monocytes Pleural Histocytes Pleural Mesothelial Pleural Total Protein Pleural Amylase Pleural LDH Pleural Glucose Nasal Screen MRSA (PCR) Stl C.difficile Tox PCR St C. diff Tox Epid 027 Vancomycin Trough Random Vancomycin Phenytoin Free Phenytoin LOWELL Screen RPR Blood Type Antibody Screen MTS Gel Crossmatch Blood Bank Comment 01/26/18 01/26/18 01/26/18 13:12 18:09 20:35 WBC RBC Hgb Hct MCV MCH MCHC RDW Plt Count MPV Prelim Diff (Auto) Neut % (Auto) Lymph % (Auto) [place] % (Auto) Eos % (Auto) Baso % (Auto) Neut # (Auto) Lymph # (Auto) [place] # (Auto) Eos # (Auto) Baso # (Auto) CBC Comment WBC Differential Total Counted Neutrophils % (Manual) Seg Neuts % (Manual) Band Neutrophils % Band Neuts % (Manual) Lymphocytes % Lymphocytes % (Manual) Monocytes % Monocytes % (Manual) Eosinophils % Eosinophils % (Manual) Basophils % Metamyelocytes % (Man) Neutrophils # (Manual) Abs Neuts (Manual) Metamyelocytes Myelocytes Nucleated RBCs Differential Comment Smudge Cells Toxic Granulation Toxic Vacuolation Dohle Bodies Platelet Estimate Platelet Morphology Plt Morphology Comment Basophilic Stippling Spherocytes Tear Drop Cells Ovalocytes Acanthocytes (Spur) RBC Morph Comment ESR Hematology Comments PT INR APTT Fibrinogen Puncture Site Patient Temperature HCO3 Base Excess O2 Saturation ABG pH ABG pCO2 ABG pO2 ABG HCO3 ABG O2 Content ABG Base Excess ABG Carboxyhemoglobin ABG Methemoglobin Stepan Test Hemoglobin Carboxyhemoglobin O2 Delivery Device Liter Flow Vent Setting Inspired O2 Critical Value Sodium 146 H Potassium 4.5 Chloride 116 H Carbon Dioxide 22.4 Anion Gap 8 BUN 49 H Creatinine 1.23 Estimated GFR 57 L POC Glucose 134 H 132 H Random Glucose 110 H Hemoglobin A1c Lactic Acid Calcium 7.5 L Prot Corrected Calcium Phosphorus Magnesium Total Bilirubin 0.3 Direct Bilirubin Indirect Bilirubin AST 86 H ALT 69 Alkaline Phosphatase 225 H Ammonia Total Creatine Kinase Troponin I C-Reactive Protein B-Natriuretic Peptide Total Protein 6.5 Albumin 1.2 L Prealbumin Triglycerides Cholesterol LDL Cholesterol HDL Cholesterol Cholesterol/HDL Ratio Thiamine Vitamin B12 Procalcitonin Free T4 TSH 3rd Generation Urine Color Urine Clarity Urine Turbidity Urine pH Ur Specific [place] Urine Protein Urine Glucose (UA) Urine Ketones Urine Occult Blood Urine Nitrate Urine Nitrite Urine Bilirubin Urine Urobilinogen Ur Leukocyte Esterase Urine RBC Urine WBC Urine WBC Clumps Ur Squamous Epith Cells Ur Transition Epith Cell Ur Renal Epithelial Cell Amorphous Sediment Urine Bacteria Hyaline Casts Granular Casts Urine Mucus Micro UA Comment Urine Culture Comments Urine Eosinophils Urine Osmolality Ur Random Creatinine Ur Random Sodium Pleural pH Pleural WBC Pleural Nuc Cells Pleural RBC Pleural Neutrophils Pleural Eosinophils Pleural Lymphocytes Pleural Monocytes Pleural Histocytes Pleural Mesothelial Pleural Total Protein Pleural Amylase Pleural LDH Pleural Glucose Nasal Screen MRSA (PCR) Stl C.difficile Tox PCR St C. diff Tox Epid 027 Vancomycin Trough Random Vancomycin Phenytoin Free Phenytoin LOWELL Screen RPR Blood Type Antibody Screen MTS Gel Crossmatch Blood Bank Comment 01/26/18 01/27/18 01/27/18 20:57 00:12 05:30 WBC RBC Hgb Hct MCV MCH MCHC RDW Plt Count MPV Prelim Diff (Auto) Neut % (Auto) Lymph % (Auto) [place] % (Auto) Eos % (Auto) Baso % (Auto) Neut # (Auto) Lymph # (Auto) [place] # (Auto) Eos # (Auto) Baso # (Auto) CBC Comment WBC Differential Total Counted Neutrophils % (Manual) Seg Neuts % (Manual) Band Neutrophils % Band Neuts % (Manual) Lymphocytes % Lymphocytes % (Manual) Monocytes % Monocytes % (Manual) Eosinophils % Eosinophils % (Manual) Basophils % Metamyelocytes % (Man) Neutrophils # (Manual) Abs Neuts (Manual) Metamyelocytes Myelocytes Nucleated RBCs Differential Comment Smudge Cells Toxic Granulation Toxic Vacuolation Dohle Bodies Platelet Estimate Platelet Morphology Plt Morphology Comment Basophilic Stippling Spherocytes Tear Drop Cells Ovalocytes Acanthocytes (Spur) RBC Morph Comment ESR Hematology Comments PT INR APTT Fibrinogen Puncture Site Patient Temperature HCO3 Base Excess O2 Saturation ABG pH ABG pCO2 ABG pO2 ABG HCO3 ABG O2 Content ABG Base Excess ABG Carboxyhemoglobin ABG Methemoglobin Stepan Test Hemoglobin Carboxyhemoglobin O2 Delivery Device Liter Flow Vent Setting Inspired O2 Critical Value Sodium Potassium Chloride Carbon Dioxide Anion Gap BUN Creatinine Estimated GFR POC Glucose 135 H 142 H 127 H Random Glucose Hemoglobin A1c Lactic Acid Calcium Prot Corrected Calcium Phosphorus Magnesium Total Bilirubin Direct Bilirubin Indirect Bilirubin AST ALT Alkaline Phosphatase Ammonia Total Creatine Kinase Troponin I C-Reactive Protein B-Natriuretic Peptide Total Protein Albumin Prealbumin Triglycerides Cholesterol LDL Cholesterol HDL Cholesterol Cholesterol/HDL Ratio Thiamine Vitamin B12 Procalcitonin Free T4 TSH 3rd Generation Urine Color Urine Clarity Urine Turbidity Urine pH Ur Specific [place] Urine Protein Urine Glucose (UA) Urine Ketones Urine Occult Blood Urine Nitrate Urine Nitrite Urine Bilirubin Urine Urobilinogen Ur Leukocyte Esterase Urine RBC Urine WBC Urine WBC Clumps Ur Squamous Epith Cells Ur Transition Epith Cell Ur Renal Epithelial Cell Amorphous Sediment Urine Bacteria Hyaline Casts Granular Casts Urine Mucus Micro UA Comment Urine Culture Comments Urine Eosinophils Urine Osmolality Ur Random Creatinine Ur Random Sodium Pleural pH Pleural WBC Pleural Nuc Cells Pleural RBC Pleural Neutrophils Pleural Eosinophils Pleural Lymphocytes Pleural Monocytes Pleural Histocytes Pleural Mesothelial Pleural Total Protein Pleural Amylase Pleural LDH Pleural Glucose Nasal Screen MRSA (PCR) Stl C.difficile Tox PCR St C. diff Tox Epid 027 Vancomycin Trough Random Vancomycin Phenytoin Free Phenytoin LOWELL Screen RPR Blood Type Antibody Screen MTS Gel Crossmatch Blood Bank Comment 01/27/18 01/27/18 01/27/18 06:00 07:02 07:02 WBC 9.2 RBC 2.78 L Hgb 7.6 L Hct 24.4 L MCV 87.6 MCH 27.4 MCHC 31.3 L RDW 19.5 H Plt Count 431 MPV 8.2 Prelim Diff (Auto) Neut % (Auto) 45.9 Lymph % (Auto) 43.2 [place] % (Auto) 7.2 Eos % (Auto) 2.4 Baso % (Auto) 1.3 Neut # (Auto) 4.2 Lymph # (Auto) 4.0 [place] # (Auto) 0.7 Eos # (Auto) 0.2 Baso # (Auto) 0.1 CBC Comment WBC Differential . Total Counted Neutrophils % (Manual) Seg Neuts % (Manual) Band Neutrophils % Band Neuts % (Manual) Lymphocytes % Lymphocytes % (Manual) Monocytes % Monocytes % (Manual) Eosinophils % Eosinophils % (Manual) Basophils % Metamyelocytes % (Man) Neutrophils # (Manual) Abs Neuts (Manual) Metamyelocytes Myelocytes Nucleated RBCs Differential Comment Auto diff final Smudge Cells Toxic Granulation Toxic Vacuolation Dohle Bodies Platelet Estimate Platelet Morphology Plt Morphology Comment Basophilic Stippling Spherocytes Tear Drop Cells Ovalocytes Acanthocytes (Spur) RBC Morph Comment ESR Hematology Comments PT 24.6 H INR 2.4 APTT Fibrinogen Puncture Site Patient Temperature HCO3 Base Excess O2 Saturation ABG pH ABG pCO2 ABG pO2 ABG HCO3 ABG O2 Content ABG Base Excess ABG Carboxyhemoglobin ABG Methemoglobin Stepan Test Hemoglobin Carboxyhemoglobin O2 Delivery Device Liter Flow Vent Setting Inspired O2 Critical Value Sodium Potassium Chloride Carbon Dioxide Anion Gap BUN Creatinine Estimated GFR POC Glucose Random Glucose Hemoglobin A1c Lactic Acid Calcium Prot Corrected Calcium Phosphorus Magnesium Total Bilirubin Direct Bilirubin Indirect Bilirubin AST ALT Alkaline Phosphatase Ammonia Total Creatine Kinase Troponin I C-Reactive Protein B-Natriuretic Peptide Total Protein Albumin Prealbumin Triglycerides Cholesterol LDL Cholesterol HDL Cholesterol Cholesterol/HDL Ratio Thiamine Vitamin B12 Procalcitonin Free T4 TSH 3rd Generation Urine Color Yellow Urine Clarity Clear Urine Turbidity Urine pH 6.0 Ur Specific [place] 1.012 Urine Protein 30 H Urine Glucose (UA) Negative Urine Ketones Negative Urine Occult Blood Small H Urine Nitrate Negative Urine Nitrite Urine Bilirubin Negative Urine Urobilinogen Less than 2 Ur Leukocyte Esterase Negative Urine RBC 1 Urine WBC 4 Urine WBC Clumps Ur Squamous Epith Cells Ur Transition Epith Cell Ur Renal Epithelial Cell Amorphous Sediment Urine Bacteria Rare H Hyaline Casts Granular Casts Urine Mucus Few H Micro UA Comment Cath-culture ind Urine Culture Comments Cath-cult indicated Urine Eosinophils Urine Osmolality Ur Random Creatinine Ur Random Sodium Pleural pH Pleural WBC Pleural Nuc Cells Pleural RBC Pleural Neutrophils Pleural Eosinophils Pleural Lymphocytes Pleural Monocytes Pleural Histocytes Pleural Mesothelial Pleural Total Protein Pleural Amylase Pleural LDH Pleural Glucose Nasal Screen MRSA (PCR) Stl C.difficile Tox PCR St C. diff Tox Epid 027 Vancomycin Trough Random Vancomycin Phenytoin Free Phenytoin LOWELL Screen RPR Blood Type Antibody Screen MTS Gel Crossmatch Blood Bank Comment 01/27/18 01/27/18 01/27/18 07:02 08:38 12:34 WBC RBC Hgb Hct MCV MCH MCHC RDW Plt Count MPV Prelim Diff (Auto) Neut % (Auto) Lymph % (Auto) [place] % (Auto) Eos % (Auto) Baso % (Auto) Neut # (Auto) Lymph # (Auto) [place] # (Auto) Eos # (Auto) Baso # (Auto) CBC Comment WBC Differential Total Counted Neutrophils % (Manual) Seg Neuts % (Manual) Band Neutrophils % Band Neuts % (Manual) Lymphocytes % Lymphocytes % (Manual) Monocytes % Monocytes % (Manual) Eosinophils % Eosinophils % (Manual) Basophils % Metamyelocytes % (Man) Neutrophils # (Manual) Abs Neuts (Manual) Metamyelocytes Myelocytes Nucleated RBCs Differential Comment Smudge Cells Toxic Granulation Toxic Vacuolation Dohle Bodies Platelet Estimate Platelet Morphology Plt Morphology Comment Basophilic Stippling Spherocytes Tear Drop Cells Ovalocytes Acanthocytes (Spur) RBC Morph Comment ESR Hematology Comments PT INR APTT Fibrinogen Puncture Site Patient Temperature HCO3 Base Excess O2 Saturation ABG pH ABG pCO2 ABG pO2 ABG HCO3 ABG O2 Content ABG Base Excess ABG Carboxyhemoglobin ABG Methemoglobin Stepan Test Hemoglobin Carboxyhemoglobin O2 Delivery Device Liter Flow Vent Setting Inspired O2 Critical Value Sodium 147 H Potassium 4.4 Chloride 117 H Carbon Dioxide 24.0 Anion Gap 6 BUN 48 H Creatinine 1.19 Estimated GFR 59 L POC Glucose 131 H 164 H Random Glucose 118 H Hemoglobin A1c Lactic Acid Calcium 7.6 L Prot Corrected Calcium Phosphorus Magnesium Total Bilirubin Direct Bilirubin Indirect Bilirubin AST ALT Alkaline Phosphatase Ammonia Total Creatine Kinase Troponin I C-Reactive Protein B-Natriuretic Peptide Total Protein Albumin Prealbumin Triglycerides Cholesterol LDL Cholesterol HDL Cholesterol Cholesterol/HDL Ratio Thiamine Vitamin B12 Procalcitonin Free T4 TSH 3rd Generation Urine Color Urine Clarity Urine Turbidity Urine pH Ur Specific [place] Urine Protein Urine Glucose (UA) Urine Ketones Urine Occult Blood Urine Nitrate Urine Nitrite Urine Bilirubin Urine Urobilinogen Ur Leukocyte Esterase Urine RBC Urine WBC Urine WBC Clumps Ur Squamous Epith Cells Ur Transition Epith Cell Ur Renal Epithelial Cell Amorphous Sediment Urine Bacteria Hyaline Casts Granular Casts Urine Mucus Micro UA Comment Urine Culture Comments Urine Eosinophils Urine Osmolality Ur Random Creatinine Ur Random Sodium Pleural pH Pleural WBC Pleural Nuc Cells Pleural RBC Pleural Neutrophils Pleural Eosinophils Pleural Lymphocytes Pleural Monocytes Pleural Histocytes Pleural Mesothelial Pleural Total Protein Pleural Amylase Pleural LDH Pleural Glucose Nasal Screen MRSA (PCR) Stl C.difficile Tox PCR St C. diff Tox Epid 027 Vancomycin Trough Random Vancomycin Phenytoin Free Phenytoin LOWELL Screen RPR Blood Type Antibody Screen MTS Gel Crossmatch Blood Bank Comment 01/27/18 01/27/18 01/28/18 18:15 22:36 06:43 WBC RBC Hgb Hct MCV MCH MCHC RDW Plt Count MPV Prelim Diff (Auto) Neut % (Auto) Lymph % (Auto) [place] % (Auto) Eos % (Auto) Baso % (Auto) Neut # (Auto) Lymph # (Auto) [place] # (Auto) Eos # (Auto) Baso # (Auto) CBC Comment WBC Differential Total Counted Neutrophils % (Manual) Seg Neuts % (Manual) Band Neutrophils % Band Neuts % (Manual) Lymphocytes % Lymphocytes % (Manual) Monocytes % Monocytes % (Manual) Eosinophils % Eosinophils % (Manual) Basophils % Metamyelocytes % (Man) Neutrophils # (Manual) Abs Neuts (Manual) Metamyelocytes Myelocytes Nucleated RBCs Differential Comment Smudge Cells Toxic Granulation Toxic Vacuolation Dohle Bodies Platelet Estimate Platelet Morphology Plt Morphology Comment Basophilic Stippling Spherocytes Tear Drop Cells Ovalocytes Acanthocytes (Spur) RBC Morph Comment ESR Hematology Comments PT INR APTT Fibrinogen Puncture Site Patient Temperature HCO3 Base Excess O2 Saturation ABG pH ABG pCO2 ABG pO2 ABG HCO3 ABG O2 Content ABG Base Excess ABG Carboxyhemoglobin ABG Methemoglobin Stepan Test Hemoglobin Carboxyhemoglobin O2 Delivery Device Liter Flow Vent Setting Inspired O2 Critical Value Sodium Potassium Chloride Carbon Dioxide Anion Gap BUN Creatinine Estimated GFR POC Glucose 141 H 156 H 211 H Random Glucose Hemoglobin A1c Lactic Acid Calcium Prot Corrected Calcium Phosphorus Magnesium Total Bilirubin Direct Bilirubin Indirect Bilirubin AST ALT Alkaline Phosphatase Ammonia Total Creatine Kinase Troponin I C-Reactive Protein B-Natriuretic Peptide Total Protein Albumin Prealbumin Triglycerides Cholesterol LDL Cholesterol HDL Cholesterol Cholesterol/HDL Ratio Thiamine Vitamin B12 Procalcitonin Free T4 TSH 3rd Generation Urine Color Urine Clarity Urine Turbidity Urine pH Ur Specific [place] Urine Protein Urine Glucose (UA) Urine Ketones Urine Occult Blood Urine Nitrate Urine Nitrite Urine Bilirubin Urine Urobilinogen Ur Leukocyte Esterase Urine RBC Urine WBC Urine WBC Clumps Ur Squamous Epith Cells Ur Transition Epith Cell Ur Renal Epithelial Cell Amorphous Sediment Urine Bacteria Hyaline Casts Granular Casts Urine Mucus Micro UA Comment Urine Culture Comments Urine Eosinophils Urine Osmolality Ur Random Creatinine Ur Random Sodium Pleural pH Pleural WBC Pleural Nuc Cells Pleural RBC Pleural Neutrophils Pleural Eosinophils Pleural Lymphocytes Pleural Monocytes Pleural Histocytes Pleural Mesothelial Pleural Total Protein Pleural Amylase Pleural LDH Pleural Glucose Nasal Screen MRSA (PCR) Stl C.difficile Tox PCR St C. diff Tox Epid 027 Vancomycin Trough Random Vancomycin Phenytoin Free Phenytoin LOWELL Screen RPR Blood Type Antibody Screen MTS Gel Crossmatch Blood Bank Comment 01/28/18 01/28/18 01/28/18 08:16 09:50 13:17 WBC RBC Hgb Hct MCV MCH MCHC RDW Plt Count MPV Prelim Diff (Auto) Neut % (Auto) Lymph % (Auto) [place] % (Auto) Eos % (Auto) Baso % (Auto) Neut # (Auto) Lymph # (Auto) [place] # (Auto) Eos # (Auto) Baso # (Auto) CBC Comment WBC Differential Total Counted Neutrophils % (Manual) Seg Neuts % (Manual) Band Neutrophils % Band Neuts % (Manual) Lymphocytes % Lymphocytes % (Manual) Monocytes % Monocytes % (Manual) Eosinophils % Eosinophils % (Manual) Basophils % Metamyelocytes % (Man) Neutrophils # (Manual) Abs Neuts (Manual) Metamyelocytes Myelocytes Nucleated RBCs Differential Comment Smudge Cells Toxic Granulation Toxic Vacuolation Dohle Bodies Platelet Estimate Platelet Morphology Plt Morphology Comment Basophilic Stippling Spherocytes Tear Drop Cells Ovalocytes Acanthocytes (Spur) RBC Morph Comment ESR Hematology Comments PT 33.2 H INR 3.3 APTT Fibrinogen Puncture Site Patient Temperature HCO3 Base Excess O2 Saturation ABG pH ABG pCO2 ABG pO2 ABG HCO3 ABG O2 Content ABG Base Excess ABG Carboxyhemoglobin ABG Methemoglobin Stepan Test Hemoglobin Carboxyhemoglobin O2 Delivery Device Liter Flow Vent Setting Inspired O2 Critical Value Sodium Potassium Chloride Carbon Dioxide Anion Gap BUN Creatinine Estimated GFR POC Glucose 226 H 269 H Random Glucose Hemoglobin A1c Lactic Acid Calcium Prot Corrected Calcium Phosphorus Magnesium Total Bilirubin Direct Bilirubin Indirect Bilirubin AST ALT Alkaline Phosphatase Ammonia Total Creatine Kinase Troponin I C-Reactive Protein B-Natriuretic Peptide Total Protein Albumin Prealbumin Triglycerides Cholesterol LDL Cholesterol HDL Cholesterol Cholesterol/HDL Ratio Thiamine Vitamin B12 Procalcitonin Free T4 TSH 3rd Generation Urine Color Urine Clarity Urine Turbidity Urine pH Ur Specific [place] Urine Protein Urine Glucose (UA) Urine Ketones Urine Occult Blood Urine Nitrate Urine Nitrite Urine Bilirubin Urine Urobilinogen Ur Leukocyte Esterase Urine RBC Urine WBC Urine WBC Clumps Ur Squamous Epith Cells Ur Transition Epith Cell Ur Renal Epithelial Cell Amorphous Sediment Urine Bacteria Hyaline Casts Granular Casts Urine Mucus Micro UA Comment Urine Culture Comments Urine Eosinophils Urine Osmolality Ur Random Creatinine Ur Random Sodium Pleural pH Pleural WBC Pleural Nuc Cells Pleural RBC Pleural Neutrophils Pleural Eosinophils Pleural Lymphocytes Pleural Monocytes Pleural Histocytes Pleural Mesothelial Pleural Total Protein Pleural Amylase Pleural LDH Pleural Glucose Nasal Screen MRSA (PCR) Stl C.difficile Tox PCR St C. diff Tox Epid 027 Vancomycin Trough Random Vancomycin Phenytoin Free Phenytoin LOWELL Screen RPR Blood Type Antibody Screen MTS Gel Crossmatch Blood Bank Comment 01/28/18 01/28/18 01/28/18 18:17 22:51 23:15 WBC RBC Hgb Hct MCV MCH MCHC RDW Plt Count MPV Prelim Diff (Auto) Neut % (Auto) Lymph % (Auto) [place] % (Auto) Eos % (Auto) Baso % (Auto) Neut # (Auto) Lymph # (Auto) [place] # (Auto) Eos # (Auto) Baso # (Auto) CBC Comment WBC Differential Total Counted Neutrophils % (Manual) Seg Neuts % (Manual) Band Neutrophils % Band Neuts % (Manual) Lymphocytes % Lymphocytes % (Manual) Monocytes % Monocytes % (Manual) Eosinophils % Eosinophils % (Manual) Basophils % Metamyelocytes % (Man) Neutrophils # (Manual) Abs Neuts (Manual) Metamyelocytes Myelocytes Nucleated RBCs Differential Comment Smudge Cells Toxic Granulation Toxic Vacuolation Dohle Bodies Platelet Estimate Platelet Morphology Plt Morphology Comment Basophilic Stippling Spherocytes Tear Drop Cells Ovalocytes Acanthocytes (Spur) RBC Morph Comment ESR Hematology Comments PT INR APTT Fibrinogen Puncture Site Patient Temperature HCO3 Base Excess O2 Saturation ABG pH ABG pCO2 ABG pO2 ABG HCO3 ABG O2 Content ABG Base Excess ABG Carboxyhemoglobin ABG Methemoglobin Stepan Test Hemoglobin Carboxyhemoglobin O2 Delivery Device Liter Flow Vent Setting Inspired O2 Critical Value Sodium Potassium Chloride Carbon Dioxide Anion Gap BUN Creatinine Estimated GFR POC Glucose 277 H 257 H Random Glucose Hemoglobin A1c Lactic Acid Calcium Prot Corrected Calcium Phosphorus Magnesium Total Bilirubin Direct Bilirubin Indirect Bilirubin AST ALT Alkaline Phosphatase Ammonia Total Creatine Kinase Troponin I C-Reactive Protein B-Natriuretic Peptide Total Protein Albumin Prealbumin Triglycerides Cholesterol LDL Cholesterol HDL Cholesterol Cholesterol/HDL Ratio Thiamine Vitamin B12 Procalcitonin Free T4 TSH 3rd Generation Urine Color Yellow Urine Clarity Hazy H Urine Turbidity Urine pH 5.0 Ur Specific [place] 1.011 Urine Protein 30 H Urine Glucose (UA) 500 or greater Urine Ketones Negative Urine Occult Blood Small H Urine Nitrate Negative Urine Nitrite Urine Bilirubin Negative Urine Urobilinogen Less than 2 Ur Leukocyte Esterase Trace H Urine RBC 1 Urine WBC 7 H Urine WBC Clumps Ur Squamous Epith Cells Ur Transition Epith Cell Ur Renal Epithelial Cell Amorphous Sediment Urine Bacteria Rare H Hyaline Casts 3 Granular Casts Urine Mucus Few H Micro UA Comment Cath-culture ind Urine Culture Comments Cath-cult indicated Urine Eosinophils Urine Osmolality Ur Random Creatinine Ur Random Sodium Pleural pH Pleural WBC Pleural Nuc Cells Pleural RBC Pleural Neutrophils Pleural Eosinophils Pleural Lymphocytes Pleural Monocytes Pleural Histocytes Pleural Mesothelial Pleural Total Protein Pleural Amylase Pleural LDH Pleural Glucose Nasal Screen MRSA (PCR) Stl C.difficile Tox PCR St C. diff Tox Epid 027 Vancomycin Trough Random Vancomycin Phenytoin Free Phenytoin LOWELL Screen RPR Blood Type Antibody Screen MTS Gel Crossmatch Blood Bank Comment 01/29/18 01/29/18 01/29/18 07:15 07:33 12:32 WBC RBC Hgb Hct MCV MCH MCHC RDW Plt Count MPV Prelim Diff (Auto) Neut % (Auto) Lymph % (Auto) [place] % (Auto) Eos % (Auto) Baso % (Auto) Neut # (Auto) Lymph # (Auto) [place] # (Auto) Eos # (Auto) Baso # (Auto) CBC Comment WBC Differential Total Counted Neutrophils % (Manual) Seg Neuts % (Manual) Band Neutrophils % Band Neuts % (Manual) Lymphocytes % Lymphocytes % (Manual) Monocytes % Monocytes % (Manual) Eosinophils % Eosinophils % (Manual) Basophils % Metamyelocytes % (Man) Neutrophils # (Manual) Abs Neuts (Manual) Metamyelocytes Myelocytes Nucleated RBCs Differential Comment Smudge Cells Toxic Granulation Toxic Vacuolation Dohle Bodies Platelet Estimate Platelet Morphology Plt Morphology Comment Basophilic Stippling Spherocytes Tear Drop Cells Ovalocytes Acanthocytes (Spur) RBC Morph Comment ESR Hematology Comments PT 27.6 H INR 2.7 APTT Fibrinogen Puncture Site Patient Temperature HCO3 Base Excess O2 Saturation ABG pH ABG pCO2 ABG pO2 ABG HCO3 ABG O2 Content ABG Base Excess ABG Carboxyhemoglobin ABG Methemoglobin Stepan Test Hemoglobin Carboxyhemoglobin O2 Delivery Device Liter Flow Vent Setting Inspired O2 Critical Value Sodium Potassium Chloride Carbon Dioxide Anion Gap BUN Creatinine Estimated GFR POC Glucose 293 H 287 H Random Glucose Hemoglobin A1c Lactic Acid Calcium Prot Corrected Calcium Phosphorus Magnesium Total Bilirubin Direct Bilirubin Indirect Bilirubin AST ALT Alkaline Phosphatase Ammonia Total Creatine Kinase Troponin I C-Reactive Protein B-Natriuretic Peptide Total Protein Albumin Prealbumin Triglycerides Cholesterol LDL Cholesterol HDL Cholesterol Cholesterol/HDL Ratio Thiamine Vitamin B12 Procalcitonin Free T4 TSH 3rd Generation Urine Color Urine Clarity Urine Turbidity Urine pH Ur Specific [place] Urine Protein Urine Glucose (UA) Urine Ketones Urine Occult Blood Urine Nitrate Urine Nitrite Urine Bilirubin Urine Urobilinogen Ur Leukocyte Esterase Urine RBC Urine WBC Urine WBC Clumps Ur Squamous Epith Cells Ur Transition Epith Cell Ur Renal Epithelial Cell Amorphous Sediment Urine Bacteria Hyaline Casts Granular Casts Urine Mucus Micro UA Comment Urine Culture Comments Urine Eosinophils Urine Osmolality Ur Random Creatinine Ur Random Sodium Pleural pH Pleural WBC Pleural Nuc Cells Pleural RBC Pleural Neutrophils Pleural Eosinophils Pleural Lymphocytes Pleural Monocytes Pleural Histocytes Pleural Mesothelial Pleural Total Protein Pleural Amylase Pleural LDH Pleural Glucose Nasal Screen MRSA (PCR) Stl C.difficile Tox PCR St C. diff Tox Epid 027 Vancomycin Trough Random Vancomycin Phenytoin Free Phenytoin LOWELL Screen RPR Blood Type Antibody Screen MTS Gel Crossmatch Blood Bank Comment 01/29/18 01/29/18 01/30/18 17:50 23:30 06:43 WBC RBC Hgb Hct MCV MCH MCHC RDW Plt Count MPV Prelim Diff (Auto) Neut % (Auto) Lymph % (Auto) [place] % (Auto) Eos % (Auto) Baso % (Auto) Neut # (Auto) Lymph # (Auto) [place] # (Auto) Eos # (Auto) Baso # (Auto) CBC Comment WBC Differential Total Counted Neutrophils % (Manual) Seg Neuts % (Manual) Band Neutrophils % Band Neuts % (Manual) Lymphocytes % Lymphocytes % (Manual) Monocytes % Monocytes % (Manual) Eosinophils % Eosinophils % (Manual) Basophils % Metamyelocytes % (Man) Neutrophils # (Manual) Abs Neuts (Manual) Metamyelocytes Myelocytes Nucleated RBCs Differential Comment Smudge Cells Toxic Granulation Toxic Vacuolation Dohle Bodies Platelet Estimate Platelet Morphology Plt Morphology Comment Basophilic Stippling Spherocytes Tear Drop Cells Ovalocytes Acanthocytes (Spur) RBC Morph Comment ESR Hematology Comments PT INR APTT Fibrinogen Puncture Site Patient Temperature HCO3 Base Excess O2 Saturation ABG pH ABG pCO2 ABG pO2 ABG HCO3 ABG O2 Content ABG Base Excess ABG Carboxyhemoglobin ABG Methemoglobin Stepan Test Hemoglobin Carboxyhemoglobin O2 Delivery Device Liter Flow Vent Setting Inspired O2 Critical Value Sodium Potassium Chloride Carbon Dioxide Anion Gap BUN Creatinine Estimated GFR POC Glucose 290 H 275 H 295 H Random Glucose Hemoglobin A1c Lactic Acid Calcium Prot Corrected Calcium Phosphorus Magnesium Total Bilirubin Direct Bilirubin Indirect Bilirubin AST ALT Alkaline Phosphatase Ammonia Total Creatine Kinase Troponin I C-Reactive Protein B-Natriuretic Peptide Total Protein Albumin Prealbumin Triglycerides Cholesterol LDL Cholesterol HDL Cholesterol Cholesterol/HDL Ratio Thiamine Vitamin B12 Procalcitonin Free T4 TSH 3rd Generation Urine Color Urine Clarity Urine Turbidity Urine pH Ur Specific [place] Urine Protein Urine Glucose (UA) Urine Ketones Urine Occult Blood Urine Nitrate Urine Nitrite Urine Bilirubin Urine Urobilinogen Ur Leukocyte Esterase Urine RBC Urine WBC Urine WBC Clumps Ur Squamous Epith Cells Ur Transition Epith Cell Ur Renal Epithelial Cell Amorphous Sediment Urine Bacteria Hyaline Casts Granular Casts Urine Mucus Micro UA Comment Urine Culture Comments Urine Eosinophils Urine Osmolality Ur Random Creatinine Ur Random Sodium Pleural pH Pleural WBC Pleural Nuc Cells Pleural RBC Pleural Neutrophils Pleural Eosinophils Pleural Lymphocytes Pleural Monocytes Pleural Histocytes Pleural Mesothelial Pleural Total Protein Pleural Amylase Pleural LDH Pleural Glucose Nasal Screen MRSA (PCR) Stl C.difficile Tox PCR St C. diff Tox Epid 027 Vancomycin Trough Random Vancomycin Phenytoin Free Phenytoin LOWELL Screen RPR Blood Type Antibody Screen MTS Gel Crossmatch Blood Bank Comment 01/30/18 01/30/18 01/30/18 08:59 11:40 17:41 WBC RBC Hgb Hct MCV MCH MCHC RDW Plt Count MPV Prelim Diff (Auto) Neut % (Auto) Lymph % (Auto) [place] % (Auto) Eos % (Auto) Baso % (Auto) Neut # (Auto) Lymph # (Auto) [place] # (Auto) Eos # (Auto) Baso # (Auto) CBC Comment WBC Differential Total Counted Neutrophils % (Manual) Seg Neuts % (Manual) Band Neutrophils % Band Neuts % (Manual) Lymphocytes % Lymphocytes % (Manual) Monocytes % Monocytes % (Manual) Eosinophils % Eosinophils % (Manual) Basophils % Metamyelocytes % (Man) Neutrophils # (Manual) Abs Neuts (Manual) Metamyelocytes Myelocytes Nucleated RBCs Differential Comment Smudge Cells Toxic Granulation Toxic Vacuolation Dohle Bodies Platelet Estimate Platelet Morphology Plt Morphology Comment Basophilic Stippling Spherocytes Tear Drop Cells Ovalocytes Acanthocytes (Spur) RBC Morph Comment ESR Hematology Comments PT 25.8 H INR 2.6 APTT Fibrinogen Puncture Site Patient Temperature HCO3 Base Excess O2 Saturation ABG pH ABG pCO2 ABG pO2 ABG HCO3 ABG O2 Content ABG Base Excess ABG Carboxyhemoglobin ABG Methemoglobin Stepan Test Hemoglobin Carboxyhemoglobin O2 Delivery Device Liter Flow Vent Setting Inspired O2 Critical Value Sodium Potassium Chloride Carbon Dioxide Anion Gap BUN Creatinine Estimated GFR POC Glucose 296 H 307 H Random Glucose Hemoglobin A1c Lactic Acid Calcium Prot Corrected Calcium Phosphorus Magnesium Total Bilirubin Direct Bilirubin Indirect Bilirubin AST ALT Alkaline Phosphatase Ammonia Total Creatine Kinase Troponin I C-Reactive Protein B-Natriuretic Peptide Total Protein Albumin Prealbumin Triglycerides Cholesterol LDL Cholesterol HDL Cholesterol Cholesterol/HDL Ratio Thiamine Vitamin B12 Procalcitonin Free T4 TSH 3rd Generation Urine Color Urine Clarity Urine Turbidity Urine pH Ur Specific [place] Urine Protein Urine Glucose (UA) Urine Ketones Urine Occult Blood Urine Nitrate Urine Nitrite Urine Bilirubin Urine Urobilinogen Ur Leukocyte Esterase Urine RBC Urine WBC Urine WBC Clumps Ur Squamous Epith Cells Ur Transition Epith Cell Ur Renal Epithelial Cell Amorphous Sediment Urine Bacteria Hyaline Casts Granular Casts Urine Mucus Micro UA Comment Urine Culture Comments Urine Eosinophils Urine Osmolality Ur Random Creatinine Ur Random Sodium Pleural pH Pleural WBC Pleural Nuc Cells Pleural RBC Pleural Neutrophils Pleural Eosinophils Pleural Lymphocytes Pleural Monocytes Pleural Histocytes Pleural Mesothelial Pleural Total Protein Pleural Amylase Pleural LDH Pleural Glucose Nasal Screen MRSA (PCR) Stl C.difficile Tox PCR St C. diff Tox Epid 027 Vancomycin Trough Random Vancomycin Phenytoin Free Phenytoin LOWELL Screen RPR Blood Type Antibody Screen MTS Gel Crossmatch Blood Bank Comment 01/31/18 01/31/18 01/31/18 00:22 06:29 07:02 WBC RBC Hgb Hct MCV MCH MCHC RDW Plt Count MPV Prelim Diff (Auto) Neut % (Auto) Lymph % (Auto) [place] % (Auto) Eos % (Auto) Baso % (Auto) Neut # (Auto) Lymph # (Auto) [place] # (Auto) Eos # (Auto) Baso # (Auto) CBC Comment WBC Differential Total Counted Neutrophils % (Manual) Seg Neuts % (Manual) Band Neutrophils % Band Neuts % (Manual) Lymphocytes % Lymphocytes % (Manual) Monocytes % Monocytes % (Manual) Eosinophils % Eosinophils % (Manual) Basophils % Metamyelocytes % (Man) Neutrophils # (Manual) Abs Neuts (Manual) Metamyelocytes Myelocytes Nucleated RBCs Differential Comment Smudge Cells Toxic Granulation Toxic Vacuolation Dohle Bodies Platelet Estimate Platelet Morphology Plt Morphology Comment Basophilic Stippling Spherocytes Tear Drop Cells Ovalocytes Acanthocytes (Spur) RBC Morph Comment ESR Hematology Comments PT 22.8 H INR 2.3 APTT Fibrinogen Puncture Site Patient Temperature HCO3 Base Excess O2 Saturation ABG pH ABG pCO2 ABG pO2 ABG HCO3 ABG O2 Content ABG Base Excess ABG Carboxyhemoglobin ABG Methemoglobin Stepan Test Hemoglobin Carboxyhemoglobin O2 Delivery Device Liter Flow Vent Setting Inspired O2 Critical Value Sodium Potassium Chloride Carbon Dioxide Anion Gap BUN Creatinine Estimated GFR POC Glucose 267 H 228 H Random Glucose Hemoglobin A1c Lactic Acid Calcium Prot Corrected Calcium Phosphorus Magnesium Total Bilirubin Direct Bilirubin Indirect Bilirubin AST ALT Alkaline Phosphatase Ammonia Total Creatine Kinase Troponin I C-Reactive Protein B-Natriuretic Peptide Total Protein Albumin Prealbumin Triglycerides Cholesterol LDL Cholesterol HDL Cholesterol Cholesterol/HDL Ratio Thiamine Vitamin B12 Procalcitonin Free T4 TSH 3rd Generation Urine Color Urine Clarity Urine Turbidity Urine pH Ur Specific [place] Urine Protein Urine Glucose (UA) Urine Ketones Urine Occult Blood Urine Nitrate Urine Nitrite Urine Bilirubin Urine Urobilinogen Ur Leukocyte Esterase Urine RBC Urine WBC Urine WBC Clumps Ur Squamous Epith Cells Ur Transition Epith Cell Ur Renal Epithelial Cell Amorphous Sediment Urine Bacteria Hyaline Casts Granular Casts Urine Mucus Micro UA Comment Urine Culture Comments Urine Eosinophils Urine Osmolality Ur Random Creatinine Ur Random Sodium Pleural pH Pleural WBC Pleural Nuc Cells Pleural RBC Pleural Neutrophils Pleural Eosinophils Pleural Lymphocytes Pleural Monocytes Pleural Histocytes Pleural Mesothelial Pleural Total Protein Pleural Amylase Pleural LDH Pleural Glucose Nasal Screen MRSA (PCR) Stl C.difficile Tox PCR St C. diff Tox Epid 027 Vancomycin Trough Random Vancomycin Phenytoin Free Phenytoin LOWELL Screen RPR Blood Type Antibody Screen MTS Gel Crossmatch Blood Bank Comment 01/31/18 01/31/18 01/31/18 07:02 07:02 12:24 WBC 9.0 RBC 2.82 L Hgb 7.9 L Hct 24.6 L MCV 87.1 MCH 28.0 MCHC 32.1 RDW 19.4 H Plt Count 373 MPV 8.0 Prelim Diff (Auto) Neut % (Auto) 50.3 Lymph % (Auto) 38.0 [place] % (Auto) 8.6 H Eos % (Auto) 2.6 Baso % (Auto) 0.5 Neut # (Auto) 4.5 Lymph # (Auto) 3.4 [place] # (Auto) 0.8 Eos # (Auto) 0.2 Baso # (Auto) 0.0 CBC Comment WBC Differential . Total Counted Neutrophils % (Manual) Seg Neuts % (Manual) Band Neutrophils % Band Neuts % (Manual) Lymphocytes % Lymphocytes % (Manual) Monocytes % Monocytes % (Manual) Eosinophils % Eosinophils % (Manual) Basophils % Metamyelocytes % (Man) Neutrophils # (Manual) Abs Neuts (Manual) Metamyelocytes Myelocytes Nucleated RBCs Differential Comment Auto diff final Smudge Cells Toxic Granulation Toxic Vacuolation Dohle Bodies Platelet Estimate Platelet Morphology Plt Morphology Comment Basophilic Stippling Spherocytes Tear Drop Cells Ovalocytes Acanthocytes (Spur) RBC Morph Comment ESR Hematology Comments PT INR APTT Fibrinogen Puncture Site Patient Temperature HCO3 Base Excess O2 Saturation ABG pH ABG pCO2 ABG pO2 ABG HCO3 ABG O2 Content ABG Base Excess ABG Carboxyhemoglobin ABG Methemoglobin Stepan Test Hemoglobin Carboxyhemoglobin O2 Delivery Device Liter Flow Vent Setting Inspired O2 Critical Value Sodium 149 H Potassium 4.5 Chloride 117 H Carbon Dioxide 25.8 Anion Gap 6 BUN 50 H Creatinine 1.17 Estimated GFR 60 L POC Glucose 417 H Random Glucose 194 H Hemoglobin A1c Lactic Acid Calcium 7.6 L Prot Corrected Calcium Phosphorus Magnesium Total Bilirubin 0.2 Direct Bilirubin Indirect Bilirubin AST 123 H ALT 87 H Alkaline Phosphatase 185 H Ammonia Total Creatine Kinase Troponin I C-Reactive Protein B-Natriuretic Peptide Total Protein 6.4 Albumin 1.0 L Prealbumin Triglycerides Cholesterol LDL Cholesterol HDL Cholesterol Cholesterol/HDL Ratio Thiamine Vitamin B12 Procalcitonin Free T4 TSH 3rd Generation Urine Color Urine Clarity Urine Turbidity Urine pH Ur Specific [place] Urine Protein Urine Glucose (UA) Urine Ketones Urine Occult Blood Urine Nitrate Urine Nitrite Urine Bilirubin Urine Urobilinogen Ur Leukocyte Esterase Urine RBC Urine WBC Urine WBC Clumps Ur Squamous Epith Cells Ur Transition Epith Cell Ur Renal Epithelial Cell Amorphous Sediment Urine Bacteria Hyaline Casts Granular Casts Urine Mucus Micro UA Comment Urine Culture Comments Urine Eosinophils Urine Osmolality Ur Random Creatinine Ur Random Sodium Pleural pH Pleural WBC Pleural Nuc Cells Pleural RBC Pleural Neutrophils Pleural Eosinophils Pleural Lymphocytes Pleural Monocytes Pleural Histocytes Pleural Mesothelial Pleural Total Protein Pleural Amylase Pleural LDH Pleural Glucose Nasal Screen MRSA (PCR) Stl C.difficile Tox PCR St C. diff Tox Epid 027 Vancomycin Trough Random Vancomycin Phenytoin Free Phenytoin LOWELL Screen RPR Blood Type Antibody Screen MTS Gel Crossmatch Blood Bank Comment 01/31/18 02/01/18 02/01/18 16:38 00:19 00:21 WBC RBC Hgb Hct MCV MCH MCHC RDW Plt Count MPV Prelim Diff (Auto) Neut % (Auto) Lymph % (Auto) [place] % (Auto) Eos % (Auto) Baso % (Auto) Neut # (Auto) Lymph # (Auto) [place] # (Auto) Eos # (Auto) Baso # (Auto) CBC Comment WBC Differential Total Counted Neutrophils % (Manual) Seg Neuts % (Manual) Band Neutrophils % Band Neuts % (Manual) Lymphocytes % Lymphocytes % (Manual) Monocytes % Monocytes % (Manual) Eosinophils % Eosinophils % (Manual) Basophils % Metamyelocytes % (Man) Neutrophils # (Manual) Abs Neuts (Manual) Metamyelocytes Myelocytes Nucleated RBCs Differential Comment Smudge Cells Toxic Granulation Toxic Vacuolation Dohle Bodies Platelet Estimate Platelet Morphology Plt Morphology Comment Basophilic Stippling Spherocytes Tear Drop Cells Ovalocytes Acanthocytes (Spur) RBC Morph Comment ESR Hematology Comments PT INR APTT Fibrinogen Puncture Site Patient Temperature HCO3 Base Excess O2 Saturation ABG pH ABG pCO2 ABG pO2 ABG HCO3 ABG O2 Content ABG Base Excess ABG Carboxyhemoglobin ABG Methemoglobin Stepan Test Hemoglobin Carboxyhemoglobin O2 Delivery Device Liter Flow Vent Setting Inspired O2 Critical Value Sodium Potassium Chloride Carbon Dioxide Anion Gap BUN Creatinine Estimated GFR POC Glucose 386 H 452 H* 467 H* Random Glucose Hemoglobin A1c Lactic Acid Calcium Prot Corrected Calcium Phosphorus Magnesium Total Bilirubin Direct Bilirubin Indirect Bilirubin AST ALT Alkaline Phosphatase Ammonia Total Creatine Kinase Troponin I C-Reactive Protein B-Natriuretic Peptide Total Protein Albumin Prealbumin Triglycerides Cholesterol LDL Cholesterol HDL Cholesterol Cholesterol/HDL Ratio Thiamine Vitamin B12 Procalcitonin Free T4 TSH 3rd Generation Urine Color Urine Clarity Urine Turbidity Urine pH Ur Specific [place] Urine Protein Urine Glucose (UA) Urine Ketones Urine Occult Blood Urine Nitrate Urine Nitrite Urine Bilirubin Urine Urobilinogen Ur Leukocyte Esterase Urine RBC Urine WBC Urine WBC Clumps Ur Squamous Epith Cells Ur Transition Epith Cell Ur Renal Epithelial Cell Amorphous Sediment Urine Bacteria Hyaline Casts Granular Casts Urine Mucus Micro UA Comment Urine Culture Comments Urine Eosinophils Urine Osmolality Ur Random Creatinine Ur Random Sodium Pleural pH Pleural WBC Pleural Nuc Cells Pleural RBC Pleural Neutrophils Pleural Eosinophils Pleural Lymphocytes Pleural Monocytes Pleural Histocytes Pleural Mesothelial Pleural Total Protein Pleural Amylase Pleural LDH Pleural Glucose Nasal Screen MRSA (PCR) Stl C.difficile Tox PCR St C. diff Tox Epid 027 Vancomycin Trough Random Vancomycin Phenytoin Free Phenytoin LOWELL Screen RPR Blood Type Antibody Screen MTS Gel Crossmatch Blood Bank Comment 02/01/18 02/01/18 02/01/18 02:29 02:29 04:04 WBC RBC Hgb Hct MCV MCH MCHC RDW Plt Count MPV Prelim Diff (Auto) Neut % (Auto) Lymph % (Auto) [place] % (Auto) Eos % (Auto) Baso % (Auto) Neut # (Auto) Lymph # (Auto) [place] # (Auto) Eos # (Auto) Baso # (Auto) CBC Comment WBC Differential Total Counted Neutrophils % (Manual) Seg Neuts % (Manual) Band Neutrophils % Band Neuts % (Manual) Lymphocytes % Lymphocytes % (Manual) Monocytes % Monocytes % (Manual) Eosinophils % Eosinophils % (Manual) Basophils % Metamyelocytes % (Man) Neutrophils # (Manual) Abs Neuts (Manual) Metamyelocytes Myelocytes Nucleated RBCs Differential Comment Smudge Cells Toxic Granulation Toxic Vacuolation Dohle Bodies Platelet Estimate Platelet Morphology Plt Morphology Comment Basophilic Stippling Spherocytes Tear Drop Cells Ovalocytes Acanthocytes (Spur) RBC Morph Comment ESR Hematology Comments PT 19.7 H INR 1.9 APTT Fibrinogen Puncture Site Patient Temperature HCO3 Base Excess O2 Saturation ABG pH ABG pCO2 ABG pO2 ABG HCO3 ABG O2 Content ABG Base Excess ABG Carboxyhemoglobin ABG Methemoglobin Stepan Test Hemoglobin Carboxyhemoglobin O2 Delivery Device Liter Flow Vent Setting Inspired O2 Critical Value Sodium Potassium Chloride Carbon Dioxide Anion Gap BUN Creatinine Estimated GFR POC Glucose 427 H Random Glucose 389 H D Hemoglobin A1c Lactic Acid Calcium Prot Corrected Calcium Phosphorus Magnesium Total Bilirubin Direct Bilirubin Indirect Bilirubin AST ALT Alkaline Phosphatase Ammonia Total Creatine Kinase Troponin I C-Reactive Protein B-Natriuretic Peptide Total Protein Albumin Prealbumin Triglycerides Cholesterol LDL Cholesterol HDL Cholesterol Cholesterol/HDL Ratio Thiamine Vitamin B12 Procalcitonin Free T4 TSH 3rd Generation Urine Color Urine Clarity Urine Turbidity Urine pH Ur Specific [place] Urine Protein Urine Glucose (UA) Urine Ketones Urine Occult Blood Urine Nitrate Urine Nitrite Urine Bilirubin Urine Urobilinogen Ur Leukocyte Esterase Urine RBC Urine WBC Urine WBC Clumps Ur Squamous Epith Cells Ur Transition Epith Cell Ur Renal Epithelial Cell Amorphous Sediment Urine Bacteria Hyaline Casts Granular Casts Urine Mucus Micro UA Comment Urine Culture Comments Urine Eosinophils Urine Osmolality Ur Random Creatinine Ur Random Sodium Pleural pH Pleural WBC Pleural Nuc Cells Pleural RBC Pleural Neutrophils Pleural Eosinophils Pleural Lymphocytes Pleural Monocytes Pleural Histocytes Pleural Mesothelial Pleural Total Protein Pleural Amylase Pleural LDH Pleural Glucose Nasal Screen MRSA (PCR) Stl C.difficile Tox PCR St C. diff Tox Epid 027 Vancomycin Trough Random Vancomycin Phenytoin Free Phenytoin LOWELL Screen RPR Blood Type Antibody Screen MTS Gel Crossmatch Blood Bank Comment 02/01/18 02/01/18 02/01/18 06:41 11:13 16:19 WBC RBC Hgb Hct MCV MCH MCHC RDW Plt Count MPV Prelim Diff (Auto) Neut % (Auto) Lymph % (Auto) [place] % (Auto) Eos % (Auto) Baso % (Auto) Neut # (Auto) Lymph # (Auto) [place] # (Auto) Eos # (Auto) Baso # (Auto) CBC Comment WBC Differential Total Counted Neutrophils % (Manual) Seg Neuts % (Manual) Band Neutrophils % Band Neuts % (Manual) Lymphocytes % Lymphocytes % (Manual) Monocytes % Monocytes % (Manual) Eosinophils % Eosinophils % (Manual) Basophils % Metamyelocytes % (Man) Neutrophils # (Manual) Abs Neuts (Manual) Metamyelocytes Myelocytes Nucleated RBCs Differential Comment Smudge Cells Toxic Granulation Toxic Vacuolation Dohle Bodies Platelet Estimate Platelet Morphology Plt Morphology Comment Basophilic Stippling Spherocytes Tear Drop Cells Ovalocytes Acanthocytes (Spur) RBC Morph Comment ESR Hematology Comments PT INR APTT Fibrinogen Puncture Site Patient Temperature HCO3 Base Excess O2 Saturation ABG pH ABG pCO2 ABG pO2 ABG HCO3 ABG O2 Content ABG Base Excess ABG Carboxyhemoglobin ABG Methemoglobin Stepan Test Hemoglobin Carboxyhemoglobin O2 Delivery Device Liter Flow Vent Setting Inspired O2 Critical Value Sodium Potassium Chloride Carbon Dioxide Anion Gap BUN Creatinine Estimated GFR POC Glucose 415 H 390 H 331 H Random Glucose Hemoglobin A1c Lactic Acid Calcium Prot Corrected Calcium Phosphorus Magnesium Total Bilirubin Direct Bilirubin Indirect Bilirubin AST ALT Alkaline Phosphatase Ammonia Total Creatine Kinase Troponin I C-Reactive Protein B-Natriuretic Peptide Total Protein Albumin Prealbumin Triglycerides Cholesterol LDL Cholesterol HDL Cholesterol Cholesterol/HDL Ratio Thiamine Vitamin B12 Procalcitonin Free T4 TSH 3rd Generation Urine Color Urine Clarity Urine Turbidity Urine pH Ur Specific [place] Urine Protein Urine Glucose (UA) Urine Ketones Urine Occult Blood Urine Nitrate Urine Nitrite Urine Bilirubin Urine Urobilinogen Ur Leukocyte Esterase Urine RBC Urine WBC Urine WBC Clumps Ur Squamous Epith Cells Ur Transition Epith Cell Ur Renal Epithelial Cell Amorphous Sediment Urine Bacteria Hyaline Casts Granular Casts Urine Mucus Micro UA Comment Urine Culture Comments Urine Eosinophils Urine Osmolality Ur Random Creatinine Ur Random Sodium Pleural pH Pleural WBC Pleural Nuc Cells Pleural RBC Pleural Neutrophils Pleural Eosinophils Pleural Lymphocytes Pleural Monocytes Pleural Histocytes Pleural Mesothelial Pleural Total Protein Pleural Amylase Pleural LDH Pleural Glucose Nasal Screen MRSA (PCR) Stl C.difficile Tox PCR St C. diff Tox Epid 027 Vancomycin Trough Random Vancomycin Phenytoin Free Phenytoin LOWELL Screen RPR Blood Type Antibody Screen MTS Gel Crossmatch Blood Bank Comment 02/01/18 02/02/18 02/02/18 20:25 05:17 06:33 WBC RBC Hgb Hct MCV MCH MCHC RDW Plt Count MPV Prelim Diff (Auto) Neut % (Auto) Lymph % (Auto) [place] % (Auto) Eos % (Auto) Baso % (Auto) Neut # (Auto) Lymph # (Auto) [place] # (Auto) Eos # (Auto) Baso # (Auto) CBC Comment WBC Differential Total Counted Neutrophils % (Manual) Seg Neuts % (Manual) Band Neutrophils % Band Neuts % (Manual) Lymphocytes % Lymphocytes % (Manual) Monocytes % Monocytes % (Manual) Eosinophils % Eosinophils % (Manual) Basophils % Metamyelocytes % (Man) Neutrophils # (Manual) Abs Neuts (Manual) Metamyelocytes Myelocytes Nucleated RBCs Differential Comment Smudge Cells Toxic Granulation Toxic Vacuolation Dohle Bodies Platelet Estimate Platelet Morphology Plt Morphology Comment Basophilic Stippling Spherocytes Tear Drop Cells Ovalocytes Acanthocytes (Spur) RBC Morph Comment ESR Hematology Comments PT 20.4 H INR 2.0 APTT Fibrinogen Puncture Site Patient Temperature HCO3 Base Excess O2 Saturation ABG pH ABG pCO2 ABG pO2 ABG HCO3 ABG O2 Content ABG Base Excess ABG Carboxyhemoglobin ABG Methemoglobin Stepan Test Hemoglobin Carboxyhemoglobin O2 Delivery Device Liter Flow Vent Setting Inspired O2 Critical Value Sodium Potassium Chloride Carbon Dioxide Anion Gap BUN Creatinine Estimated GFR POC Glucose 328 H 340 H Random Glucose Hemoglobin A1c Lactic Acid Calcium Prot Corrected Calcium Phosphorus Magnesium Total Bilirubin Direct Bilirubin Indirect Bilirubin AST ALT Alkaline Phosphatase Ammonia Total Creatine Kinase Troponin I C-Reactive Protein B-Natriuretic Peptide Total Protein Albumin Prealbumin Triglycerides Cholesterol LDL Cholesterol HDL Cholesterol Cholesterol/HDL Ratio Thiamine Vitamin B12 Procalcitonin Free T4 TSH 3rd Generation Urine Color Urine Clarity Urine Turbidity Urine pH Ur Specific [place] Urine Protein Urine Glucose (UA) Urine Ketones Urine Occult Blood Urine Nitrate Urine Nitrite Urine Bilirubin Urine Urobilinogen Ur Leukocyte Esterase Urine RBC Urine WBC Urine WBC Clumps Ur Squamous Epith Cells Ur Transition Epith Cell Ur Renal Epithelial Cell Amorphous Sediment Urine Bacteria Hyaline Casts Granular Casts Urine Mucus Micro UA Comment Urine Culture Comments Urine Eosinophils Urine Osmolality Ur Random Creatinine Ur Random Sodium Pleural pH Pleural WBC Pleural Nuc Cells Pleural RBC Pleural Neutrophils Pleural Eosinophils Pleural Lymphocytes Pleural Monocytes Pleural Histocytes Pleural Mesothelial Pleural Total Protein Pleural Amylase Pleural LDH Pleural Glucose Nasal Screen MRSA (PCR) Stl C.difficile Tox PCR St C. diff Tox Epid 027 Vancomycin Trough Random Vancomycin Phenytoin Free Phenytoin LOWELL Screen RPR Blood Type Antibody Screen MTS Gel Crossmatch Blood Bank Comment 02/02/18 02/02/18 02/02/18 10:58 16:55 23:14 WBC RBC Hgb Hct MCV MCH MCHC RDW Plt Count MPV Prelim Diff (Auto) Neut % (Auto) Lymph % (Auto) [place] % (Auto) Eos % (Auto) Baso % (Auto) Neut # (Auto) Lymph # (Auto) [place] # (Auto) Eos # (Auto) Baso # (Auto) CBC Comment WBC Differential Total Counted Neutrophils % (Manual) Seg Neuts % (Manual) Band Neutrophils % Band Neuts % (Manual) Lymphocytes % Lymphocytes % (Manual) Monocytes % Monocytes % (Manual) Eosinophils % Eosinophils % (Manual) Basophils % Metamyelocytes % (Man) Neutrophils # (Manual) Abs Neuts (Manual) Metamyelocytes Myelocytes Nucleated RBCs Differential Comment Smudge Cells Toxic Granulation Toxic Vacuolation Dohle Bodies Platelet Estimate Platelet Morphology Plt Morphology Comment Basophilic Stippling Spherocytes Tear Drop Cells Ovalocytes Acanthocytes (Spur) RBC Morph Comment ESR Hematology Comments PT INR APTT Fibrinogen Puncture Site Patient Temperature HCO3 Base Excess O2 Saturation ABG pH ABG pCO2 ABG pO2 ABG HCO3 ABG O2 Content ABG Base Excess ABG Carboxyhemoglobin ABG Methemoglobin Stepan Test Hemoglobin Carboxyhemoglobin O2 Delivery Device Liter Flow Vent Setting Inspired O2 Critical Value Sodium Potassium Chloride Carbon Dioxide Anion Gap BUN Creatinine Estimated GFR POC Glucose 311 H 346 H 304 H Random Glucose Hemoglobin A1c Lactic Acid Calcium Prot Corrected Calcium Phosphorus Magnesium Total Bilirubin Direct Bilirubin Indirect Bilirubin AST ALT Alkaline Phosphatase Ammonia Total Creatine Kinase Troponin I C-Reactive Protein B-Natriuretic Peptide Total Protein Albumin Prealbumin Triglycerides Cholesterol LDL Cholesterol HDL Cholesterol Cholesterol/HDL Ratio Thiamine Vitamin B12 Procalcitonin Free T4 TSH 3rd Generation Urine Color Urine Clarity Urine Turbidity Urine pH Ur Specific [place] Urine Protein Urine Glucose (UA) Urine Ketones Urine Occult Blood Urine Nitrate Urine Nitrite Urine Bilirubin Urine Urobilinogen Ur Leukocyte Esterase Urine RBC Urine WBC Urine WBC Clumps Ur Squamous Epith Cells Ur Transition Epith Cell Ur Renal Epithelial Cell Amorphous Sediment Urine Bacteria Hyaline Casts Granular Casts Urine Mucus Micro UA Comment Urine Culture Comments Urine Eosinophils Urine Osmolality Ur Random Creatinine Ur Random Sodium Pleural pH Pleural WBC Pleural Nuc Cells Pleural RBC Pleural Neutrophils Pleural Eosinophils Pleural Lymphocytes Pleural Monocytes Pleural Histocytes Pleural Mesothelial Pleural Total Protein Pleural Amylase Pleural LDH Pleural Glucose Nasal Screen MRSA (PCR) Stl C.difficile Tox PCR St C. diff Tox Epid 027 Vancomycin Trough Random Vancomycin Phenytoin Free Phenytoin LOWELL Screen RPR Blood Type Antibody Screen MTS Gel Crossmatch Blood Bank Comment 02/03/18 02/03/18 02/03/18 04:34 04:34 04:34 WBC 8.4 RBC 2.83 L Hgb 7.8 L Hct 24.6 L MCV 86.8 MCH 27.4 MCHC 31.5 L RDW 19.0 H Plt Count 285 MPV 8.3 Prelim Diff (Auto) Neut % (Auto) 58.2 Lymph % (Auto) 30.4 [place] % (Auto) 8.8 H Eos % (Auto) 2.4 Baso % (Auto) 0.2 Neut # (Auto) 4.9 Lymph # (Auto) 2.6 [place] # (Auto) 0.7 Eos # (Auto) 0.2 Baso # (Auto) 0.0 CBC Comment WBC Differential . Total Counted Neutrophils % (Manual) Seg Neuts % (Manual) Band Neutrophils % Band Neuts % (Manual) Lymphocytes % Lymphocytes % (Manual) Monocytes % Monocytes % (Manual) Eosinophils % Eosinophils % (Manual) Basophils % Metamyelocytes % (Man) Neutrophils # (Manual) Abs Neuts (Manual) Metamyelocytes Myelocytes Nucleated RBCs Differential Comment Auto diff final Smudge Cells Toxic Granulation Toxic Vacuolation Dohle Bodies Platelet Estimate Platelet Morphology Plt Morphology Comment Basophilic Stippling Spherocytes Tear Drop Cells Ovalocytes Acanthocytes (Spur) RBC Morph Comment ESR Hematology Comments PT 24.2 H INR 2.4 APTT Fibrinogen Puncture Site Patient Temperature HCO3 Base Excess O2 Saturation ABG pH ABG pCO2 ABG pO2 ABG HCO3 ABG O2 Content ABG Base Excess ABG Carboxyhemoglobin ABG Methemoglobin Stepan Test Hemoglobin Carboxyhemoglobin O2 Delivery Device Liter Flow Vent Setting Inspired O2 Critical Value Sodium 147 H Potassium 4.2 Chloride 114 H Carbon Dioxide 28.0 Anion Gap 5 BUN 73 H Creatinine 1.41 H Estimated GFR 49 L POC Glucose Random Glucose 278 H Hemoglobin A1c Lactic Acid Calcium 8.1 L Prot Corrected Calcium Phosphorus Magnesium Total Bilirubin 0.2 Direct Bilirubin Indirect Bilirubin AST 111 H ALT 110 H Alkaline Phosphatase 182 H Ammonia Total Creatine Kinase Troponin I C-Reactive Protein B-Natriuretic Peptide Total Protein 6.3 L Albumin 1.1 L Prealbumin Triglycerides Cholesterol LDL Cholesterol HDL Cholesterol Cholesterol/HDL Ratio Thiamine Vitamin B12 Procalcitonin Free T4 TSH 3rd Generation Urine Color Urine Clarity Urine Turbidity Urine pH Ur Specific [place] Urine Protein Urine Glucose (UA) Urine Ketones Urine Occult Blood Urine Nitrate Urine Nitrite Urine Bilirubin Urine Urobilinogen Ur Leukocyte Esterase Urine RBC Urine WBC Urine WBC Clumps Ur Squamous Epith Cells Ur Transition Epith Cell Ur Renal Epithelial Cell Amorphous Sediment Urine Bacteria Hyaline Casts Granular Casts Urine Mucus Micro UA Comment Urine Culture Comments Urine Eosinophils Urine Osmolality Ur Random Creatinine Ur Random Sodium Pleural pH Pleural WBC Pleural Nuc Cells Pleural RBC Pleural Neutrophils Pleural Eosinophils Pleural Lymphocytes Pleural Monocytes Pleural Histocytes Pleural Mesothelial Pleural Total Protein Pleural Amylase Pleural LDH Pleural Glucose Nasal Screen MRSA (PCR) Stl C.difficile Tox PCR St C. diff Tox Epid 027 Vancomycin Trough Random Vancomycin Phenytoin Free Phenytoin LOWELL Screen RPR Blood Type Antibody Screen MTS Gel Crossmatch Blood Bank Comment 02/03/18 02/03/18 02/03/18 04:34 06:17 07:22 WBC RBC Hgb Hct MCV MCH MCHC RDW Plt Count MPV Prelim Diff (Auto) Neut % (Auto) Lymph % (Auto) [place] % (Auto) Eos % (Auto) Baso % (Auto) Neut # (Auto) Lymph # (Auto) [place] # (Auto) Eos # (Auto) Baso # (Auto) CBC Comment WBC Differential Total Counted Neutrophils % (Manual) Seg Neuts % (Manual) Band Neutrophils % Band Neuts % (Manual) Lymphocytes % Lymphocytes % (Manual) Monocytes % Monocytes % (Manual) Eosinophils % Eosinophils % (Manual) Basophils % Metamyelocytes % (Man) Neutrophils # (Manual) Abs Neuts (Manual) Metamyelocytes Myelocytes Nucleated RBCs Differential Comment Smudge Cells Toxic Granulation Toxic Vacuolation Dohle Bodies Platelet Estimate Platelet Morphology Plt Morphology Comment Basophilic Stippling Spherocytes Tear Drop Cells Ovalocytes Acanthocytes (Spur) RBC Morph Comment ESR Hematology Comments PT INR APTT Fibrinogen Puncture Site Patient Temperature HCO3 Base Excess O2 Saturation ABG pH ABG pCO2 ABG pO2 ABG HCO3 ABG O2 Content ABG Base Excess ABG Carboxyhemoglobin ABG Methemoglobin Stepan Test Hemoglobin Carboxyhemoglobin O2 Delivery Device Liter Flow Vent Setting Inspired O2 Critical Value Sodium Potassium Chloride Carbon Dioxide Anion Gap BUN Creatinine Estimated GFR POC Glucose 346 H 338 H Random Glucose Hemoglobin A1c Lactic Acid Calcium Prot Corrected Calcium Phosphorus Magnesium 2.3 Total Bilirubin Direct Bilirubin Indirect Bilirubin AST ALT Alkaline Phosphatase Ammonia Total Creatine Kinase Troponin I C-Reactive Protein B-Natriuretic Peptide Total Protein Albumin Prealbumin Triglycerides Cholesterol LDL Cholesterol HDL Cholesterol Cholesterol/HDL Ratio Thiamine Vitamin B12 Procalcitonin Free T4 TSH 3rd Generation Urine Color Urine Clarity Urine Turbidity Urine pH Ur Specific [place] Urine Protein Urine Glucose (UA) Urine Ketones Urine Occult Blood Urine Nitrate Urine Nitrite Urine Bilirubin Urine Urobilinogen Ur Leukocyte Esterase Urine RBC Urine WBC Urine WBC Clumps Ur Squamous Epith Cells Ur Transition Epith Cell Ur Renal Epithelial Cell Amorphous Sediment Urine Bacteria Hyaline Casts Granular Casts Urine Mucus Micro UA Comment Urine Culture Comments Urine Eosinophils Urine Osmolality Ur Random Creatinine Ur Random Sodium Pleural pH Pleural WBC Pleural Nuc Cells Pleural RBC Pleural Neutrophils Pleural Eosinophils Pleural Lymphocytes Pleural Monocytes Pleural Histocytes Pleural Mesothelial Pleural Total Protein Pleural Amylase Pleural LDH Pleural Glucose Nasal Screen MRSA (PCR) Stl C.difficile Tox PCR St C. diff Tox Epid 027 Vancomycin Trough Random Vancomycin Phenytoin Free Phenytoin LOWELL Screen RPR Blood Type Antibody Screen MTS Gel Crossmatch Blood Bank Comment 02/03/18 02/03/18 02/03/18 11:46 17:00 22:44 WBC RBC Hgb Hct MCV MCH MCHC RDW Plt Count MPV Prelim Diff (Auto) Neut % (Auto) Lymph % (Auto) [place] % (Auto) Eos % (Auto) Baso % (Auto) Neut # (Auto) Lymph # (Auto) [place] # (Auto) Eos # (Auto) Baso # (Auto) CBC Comment WBC Differential Total Counted Neutrophils % (Manual) Seg Neuts % (Manual) Band Neutrophils % Band Neuts % (Manual) Lymphocytes % Lymphocytes % (Manual) Monocytes % Monocytes % (Manual) Eosinophils % Eosinophils % (Manual) Basophils % Metamyelocytes % (Man) Neutrophils # (Manual) Abs Neuts (Manual) Metamyelocytes Myelocytes Nucleated RBCs Differential Comment Smudge Cells Toxic Granulation Toxic Vacuolation Dohle Bodies Platelet Estimate Platelet Morphology Plt Morphology Comment Basophilic Stippling Spherocytes Tear Drop Cells Ovalocytes Acanthocytes (Spur) RBC Morph Comment ESR Hematology Comments PT INR APTT Fibrinogen Puncture Site Patient Temperature HCO3 Base Excess O2 Saturation ABG pH ABG pCO2 ABG pO2 ABG HCO3 ABG O2 Content ABG Base Excess ABG Carboxyhemoglobin ABG Methemoglobin Stepan Test Hemoglobin Carboxyhemoglobin O2 Delivery Device Liter Flow Vent Setting Inspired O2 Critical Value Sodium Potassium Chloride Carbon Dioxide Anion Gap BUN Creatinine Estimated GFR POC Glucose 335 H 320 H 282 H Random Glucose Hemoglobin A1c Lactic Acid Calcium Prot Corrected Calcium Phosphorus Magnesium Total Bilirubin Direct Bilirubin Indirect Bilirubin AST ALT Alkaline Phosphatase Ammonia Total Creatine Kinase Troponin I C-Reactive Protein B-Natriuretic Peptide Total Protein Albumin Prealbumin Triglycerides Cholesterol LDL Cholesterol HDL Cholesterol Cholesterol/HDL Ratio Thiamine Vitamin B12 Procalcitonin Free T4 TSH 3rd Generation Urine Color Urine Clarity Urine Turbidity Urine pH Ur Specific [place] Urine Protein Urine Glucose (UA) Urine Ketones Urine Occult Blood Urine Nitrate Urine Nitrite Urine Bilirubin Urine Urobilinogen Ur Leukocyte Esterase Urine RBC Urine WBC Urine WBC Clumps Ur Squamous Epith Cells Ur Transition Epith Cell Ur Renal Epithelial Cell Amorphous Sediment Urine Bacteria Hyaline Casts Granular Casts Urine Mucus Micro UA Comment Urine Culture Comments Urine Eosinophils Urine Osmolality Ur Random Creatinine Ur Random Sodium Pleural pH Pleural WBC Pleural Nuc Cells Pleural RBC Pleural Neutrophils Pleural Eosinophils Pleural Lymphocytes Pleural Monocytes Pleural Histocytes Pleural Mesothelial Pleural Total Protein Pleural Amylase Pleural LDH Pleural Glucose Nasal Screen MRSA (PCR) Stl C.difficile Tox PCR St C. diff Tox Epid 027 Vancomycin Trough Random Vancomycin Phenytoin Free Phenytoin LOWELL Screen RPR Blood Type Antibody Screen MTS Gel Crossmatch Blood Bank Comment 02/04/18 02/04/18 02/04/18 06:14 07:18 07:43 WBC RBC Hgb Hct MCV MCH MCHC RDW Plt Count MPV Prelim Diff (Auto) Neut % (Auto) Lymph % (Auto) [place] % (Auto) Eos % (Auto) Baso % (Auto) Neut # (Auto) Lymph # (Auto) [place] # (Auto) Eos # (Auto) Baso # (Auto) CBC Comment WBC Differential Total Counted Neutrophils % (Manual) Seg Neuts % (Manual) Band Neutrophils % Band Neuts % (Manual) Lymphocytes % Lymphocytes % (Manual) Monocytes % Monocytes % (Manual) Eosinophils % Eosinophils % (Manual) Basophils % Metamyelocytes % (Man) Neutrophils # (Manual) Abs Neuts (Manual) Metamyelocytes Myelocytes Nucleated RBCs Differential Comment Smudge Cells Toxic Granulation Toxic Vacuolation Dohle Bodies Platelet Estimate Platelet Morphology Plt Morphology Comment Basophilic Stippling Spherocytes Tear Drop Cells Ovalocytes Acanthocytes (Spur) RBC Morph Comment ESR Hematology Comments PT 26.8 H INR 2.7 APTT Fibrinogen Puncture Site Patient Temperature HCO3 Base Excess O2 Saturation ABG pH ABG pCO2 ABG pO2 ABG HCO3 ABG O2 Content ABG Base Excess ABG Carboxyhemoglobin ABG Methemoglobin Stepan Test Hemoglobin Carboxyhemoglobin O2 Delivery Device Liter Flow Vent Setting Inspired O2 Critical Value Sodium Potassium Chloride Carbon Dioxide Anion Gap BUN Creatinine Estimated GFR POC Glucose 274 H 277 H Random Glucose Hemoglobin A1c Lactic Acid Calcium Prot Corrected Calcium Phosphorus Magnesium Total Bilirubin Direct Bilirubin Indirect Bilirubin AST ALT Alkaline Phosphatase Ammonia Total Creatine Kinase Troponin I C-Reactive Protein B-Natriuretic Peptide Total Protein Albumin Prealbumin Triglycerides Cholesterol LDL Cholesterol HDL Cholesterol Cholesterol/HDL Ratio Thiamine Vitamin B12 Procalcitonin Free T4 TSH 3rd Generation Urine Color Urine Clarity Urine Turbidity Urine pH Ur Specific [place] Urine Protein Urine Glucose (UA) Urine Ketones Urine Occult Blood Urine Nitrate Urine Nitrite Urine Bilirubin Urine Urobilinogen Ur Leukocyte Esterase Urine RBC Urine WBC Urine WBC Clumps Ur Squamous Epith Cells Ur Transition Epith Cell Ur Renal Epithelial Cell Amorphous Sediment Urine Bacteria Hyaline Casts Granular Casts Urine Mucus Micro UA Comment Urine Culture Comments Urine Eosinophils Urine Osmolality Ur Random Creatinine Ur Random Sodium Pleural pH Pleural WBC Pleural Nuc Cells Pleural RBC Pleural Neutrophils Pleural Eosinophils Pleural Lymphocytes Pleural Monocytes Pleural Histocytes Pleural Mesothelial Pleural Total Protein Pleural Amylase Pleural LDH Pleural Glucose Nasal Screen MRSA (PCR) Stl C.difficile Tox PCR St C. diff Tox Epid 027 Vancomycin Trough Random Vancomycin Phenytoin Free Phenytoin LOWELL Screen RPR Blood Type Antibody Screen MTS Gel Crossmatch Blood Bank Comment 02/04/18 02/04/18 02/05/18 12:10 17:03 00:00 WBC RBC Hgb Hct MCV MCH MCHC RDW Plt Count MPV Prelim Diff (Auto) Neut % (Auto) Lymph % (Auto) [place] % (Auto) Eos % (Auto) Baso % (Auto) Neut # (Auto) Lymph # (Auto) [place] # (Auto) Eos # (Auto) Baso # (Auto) CBC Comment WBC Differential Total Counted Neutrophils % (Manual) Seg Neuts % (Manual) Band Neutrophils % Band Neuts % (Manual) Lymphocytes % Lymphocytes % (Manual) Monocytes % Monocytes % (Manual) Eosinophils % Eosinophils % (Manual) Basophils % Metamyelocytes % (Man) Neutrophils # (Manual) Abs Neuts (Manual) Metamyelocytes Myelocytes Nucleated RBCs Differential Comment Smudge Cells Toxic Granulation Toxic Vacuolation Dohle Bodies Platelet Estimate Platelet Morphology Plt Morphology Comment Basophilic Stippling Spherocytes Tear Drop Cells Ovalocytes Acanthocytes (Spur) RBC Morph Comment ESR Hematology Comments PT INR APTT Fibrinogen Puncture Site Patient Temperature HCO3 Base Excess O2 Saturation ABG pH ABG pCO2 ABG pO2 ABG HCO3 ABG O2 Content ABG Base Excess ABG Carboxyhemoglobin ABG Methemoglobin Stepan Test Hemoglobin Carboxyhemoglobin O2 Delivery Device Liter Flow Vent Setting Inspired O2 Critical Value Sodium Potassium Chloride Carbon Dioxide Anion Gap BUN Creatinine Estimated GFR POC Glucose 257 H 216 H 201 H Random Glucose Hemoglobin A1c Lactic Acid Calcium Prot Corrected Calcium Phosphorus Magnesium Total Bilirubin Direct Bilirubin Indirect Bilirubin AST ALT Alkaline Phosphatase Ammonia Total Creatine Kinase Troponin I C-Reactive Protein B-Natriuretic Peptide Total Protein Albumin Prealbumin Triglycerides Cholesterol LDL Cholesterol HDL Cholesterol Cholesterol/HDL Ratio Thiamine Vitamin B12 Procalcitonin Free T4 TSH 3rd Generation Urine Color Urine Clarity Urine Turbidity Urine pH Ur Specific [place] Urine Protein Urine Glucose (UA) Urine Ketones Urine Occult Blood Urine Nitrate Urine Nitrite Urine Bilirubin Urine Urobilinogen Ur Leukocyte Esterase Urine RBC Urine WBC Urine WBC Clumps Ur Squamous Epith Cells Ur Transition Epith Cell Ur Renal Epithelial Cell Amorphous Sediment Urine Bacteria Hyaline Casts Granular Casts Urine Mucus Micro UA Comment Urine Culture Comments Urine Eosinophils Urine Osmolality Ur Random Creatinine Ur Random Sodium Pleural pH Pleural WBC Pleural Nuc Cells Pleural RBC Pleural Neutrophils Pleural Eosinophils Pleural Lymphocytes Pleural Monocytes Pleural Histocytes Pleural Mesothelial Pleural Total Protein Pleural Amylase Pleural LDH Pleural Glucose Nasal Screen MRSA (PCR) Stl C.difficile Tox PCR St C. diff Tox Epid 027 Vancomycin Trough Random Vancomycin Phenytoin Free Phenytoin LOWELL Screen RPR Blood Type Antibody Screen MTS Gel Crossmatch Blood Bank Comment 02/05/18 02/05/18 02/05/18 05:47 07:02 11:19 WBC RBC Hgb Hct MCV MCH MCHC RDW Plt Count MPV Prelim Diff (Auto) Neut % (Auto) Lymph % (Auto) [place] % (Auto) Eos % (Auto) Baso % (Auto) Neut # (Auto) Lymph # (Auto) [place] # (Auto) Eos # (Auto) Baso # (Auto) CBC Comment WBC Differential Total Counted Neutrophils % (Manual) Seg Neuts % (Manual) Band Neutrophils % Band Neuts % (Manual) Lymphocytes % Lymphocytes % (Manual) Monocytes % Monocytes % (Manual) Eosinophils % Eosinophils % (Manual) Basophils % Metamyelocytes % (Man) Neutrophils # (Manual) Abs Neuts (Manual) Metamyelocytes Myelocytes Nucleated RBCs Differential Comment Smudge Cells Toxic Granulation Toxic Vacuolation Dohle Bodies Platelet Estimate Platelet Morphology Plt Morphology Comment Basophilic Stippling Spherocytes Tear Drop Cells Ovalocytes Acanthocytes (Spur) RBC Morph Comment ESR Hematology Comments PT 24.9 H INR 2.5 APTT Fibrinogen Puncture Site Patient Temperature HCO3 Base Excess O2 Saturation ABG pH ABG pCO2 ABG pO2 ABG HCO3 ABG O2 Content ABG Base Excess ABG Carboxyhemoglobin ABG Methemoglobin Stepan Test Hemoglobin Carboxyhemoglobin O2 Delivery Device Liter Flow Vent Setting Inspired O2 Critical Value Sodium Potassium Chloride Carbon Dioxide Anion Gap BUN Creatinine Estimated GFR POC Glucose 233 H 240 H Random Glucose Hemoglobin A1c Lactic Acid Calcium Prot Corrected Calcium Phosphorus Magnesium Total Bilirubin Direct Bilirubin Indirect Bilirubin AST ALT Alkaline Phosphatase Ammonia Total Creatine Kinase Troponin I C-Reactive Protein B-Natriuretic Peptide Total Protein Albumin Prealbumin Triglycerides Cholesterol LDL Cholesterol HDL Cholesterol Cholesterol/HDL Ratio Thiamine Vitamin B12 Procalcitonin Free T4 TSH 3rd Generation Urine Color Urine Clarity Urine Turbidity Urine pH Ur Specific [place] Urine Protein Urine Glucose (UA) Urine Ketones Urine Occult Blood Urine Nitrate Urine Nitrite Urine Bilirubin Urine Urobilinogen Ur Leukocyte Esterase Urine RBC Urine WBC Urine WBC Clumps Ur Squamous Epith Cells Ur Transition Epith Cell Ur Renal Epithelial Cell Amorphous Sediment Urine Bacteria Hyaline Casts Granular Casts Urine Mucus Micro UA Comment Urine Culture Comments Urine Eosinophils Urine Osmolality Ur Random Creatinine Ur Random Sodium Pleural pH Pleural WBC Pleural Nuc Cells Pleural RBC Pleural Neutrophils Pleural Eosinophils Pleural Lymphocytes Pleural Monocytes Pleural Histocytes Pleural Mesothelial Pleural Total Protein Pleural Amylase Pleural LDH Pleural Glucose Nasal Screen MRSA (PCR) Stl C.difficile Tox PCR St C. diff Tox Epid 027 Vancomycin Trough Random Vancomycin Phenytoin Free Phenytoin LOWELL Screen RPR Blood Type Antibody Screen MTS Gel Crossmatch Blood Bank Comment 02/05/18 02/06/18 02/06/18 18:38 00:56 06:21 WBC RBC Hgb Hct MCV MCH MCHC RDW Plt Count MPV Prelim Diff (Auto) Neut % (Auto) Lymph % (Auto) [place] % (Auto) Eos % (Auto) Baso % (Auto) Neut # (Auto) Lymph # (Auto) [place] # (Auto) Eos # (Auto) Baso # (Auto) CBC Comment WBC Differential Total Counted Neutrophils % (Manual) Seg Neuts % (Manual) Band Neutrophils % Band Neuts % (Manual) Lymphocytes % Lymphocytes % (Manual) Monocytes % Monocytes % (Manual) Eosinophils % Eosinophils % (Manual) Basophils % Metamyelocytes % (Man) Neutrophils # (Manual) Abs Neuts (Manual) Metamyelocytes Myelocytes Nucleated RBCs Differential Comment Smudge Cells Toxic Granulation Toxic Vacuolation Dohle Bodies Platelet Estimate Platelet Morphology Plt Morphology Comment Basophilic Stippling Spherocytes Tear Drop Cells Ovalocytes Acanthocytes (Spur) RBC Morph Comment ESR Hematology Comments PT INR APTT Fibrinogen Puncture Site Patient Temperature HCO3 Base Excess O2 Saturation ABG pH ABG pCO2 ABG pO2 ABG HCO3 ABG O2 Content ABG Base Excess ABG Carboxyhemoglobin ABG Methemoglobin Stepan Test Hemoglobin Carboxyhemoglobin O2 Delivery Device Liter Flow Vent Setting Inspired O2 Critical Value Sodium Potassium Chloride Carbon Dioxide Anion Gap BUN Creatinine Estimated GFR POC Glucose 204 H 133 H 68 Random Glucose Hemoglobin A1c Lactic Acid Calcium Prot Corrected Calcium Phosphorus Magnesium Total Bilirubin Direct Bilirubin Indirect Bilirubin AST ALT Alkaline Phosphatase Ammonia Total Creatine Kinase Troponin I C-Reactive Protein B-Natriuretic Peptide Total Protein Albumin Prealbumin Triglycerides Cholesterol LDL Cholesterol HDL Cholesterol Cholesterol/HDL Ratio Thiamine Vitamin B12 Procalcitonin Free T4 TSH 3rd Generation Urine Color Urine Clarity Urine Turbidity Urine pH Ur Specific [place] Urine Protein Urine Glucose (UA) Urine Ketones Urine Occult Blood Urine Nitrate Urine Nitrite Urine Bilirubin Urine Urobilinogen Ur Leukocyte Esterase Urine RBC Urine WBC Urine WBC Clumps Ur Squamous Epith Cells Ur Transition Epith Cell Ur Renal Epithelial Cell Amorphous Sediment Urine Bacteria Hyaline Casts Granular Casts Urine Mucus Micro UA Comment Urine Culture Comments Urine Eosinophils Urine Osmolality Ur Random Creatinine Ur Random Sodium Pleural pH Pleural WBC Pleural Nuc Cells Pleural RBC Pleural Neutrophils Pleural Eosinophils Pleural Lymphocytes Pleural Monocytes Pleural Histocytes Pleural Mesothelial Pleural Total Protein Pleural Amylase Pleural LDH Pleural Glucose Nasal Screen MRSA (PCR) Stl C.difficile Tox PCR St C. diff Tox Epid 027 Vancomycin Trough Random Vancomycin Phenytoin Free Phenytoin LOWELL Screen RPR Blood Type Antibody Screen MTS Gel Crossmatch Blood Bank Comment 02/06/18 02/06/18 02/06/18 07:30 07:31 08:21 WBC RBC Hgb Hct MCV MCH MCHC RDW Plt Count MPV Prelim Diff (Auto) Neut % (Auto) Lymph % (Auto) [place] % (Auto) Eos % (Auto) Baso % (Auto) Neut # (Auto) Lymph # (Auto) [place] # (Auto) Eos # (Auto) Baso # (Auto) CBC Comment WBC Differential Total Counted Neutrophils % (Manual) Seg Neuts % (Manual) Band Neutrophils % Band Neuts % (Manual) Lymphocytes % Lymphocytes % (Manual) Monocytes % Monocytes % (Manual) Eosinophils % Eosinophils % (Manual) Basophils % Metamyelocytes % (Man) Neutrophils # (Manual) Abs Neuts (Manual) Metamyelocytes Myelocytes Nucleated RBCs Differential Comment Smudge Cells Toxic Granulation Toxic Vacuolation Dohle Bodies Platelet Estimate Platelet Morphology Plt Morphology Comment Basophilic Stippling Spherocytes Tear Drop Cells Ovalocytes Acanthocytes (Spur) RBC Morph Comment ESR Hematology Comments PT INR APTT Fibrinogen Puncture Site Patient Temperature HCO3 Base Excess O2 Saturation ABG pH ABG pCO2 ABG pO2 ABG HCO3 ABG O2 Content ABG Base Excess ABG Carboxyhemoglobin ABG Methemoglobin Stepan Test Hemoglobin Carboxyhemoglobin O2 Delivery Device Liter Flow Vent Setting Inspired O2 Critical Value Sodium Potassium Chloride Carbon Dioxide Anion Gap BUN Creatinine Estimated GFR POC Glucose 69 74 84 Random Glucose Hemoglobin A1c Lactic Acid Calcium Prot Corrected Calcium Phosphorus Magnesium Total Bilirubin Direct Bilirubin Indirect Bilirubin AST ALT Alkaline Phosphatase Ammonia Total Creatine Kinase Troponin I C-Reactive Protein B-Natriuretic Peptide Total Protein Albumin Prealbumin Triglycerides Cholesterol LDL Cholesterol HDL Cholesterol Cholesterol/HDL Ratio Thiamine Vitamin B12 Procalcitonin Free T4 TSH 3rd Generation Urine Color Urine Clarity Urine Turbidity Urine pH Ur Specific [place] Urine Protein Urine Glucose (UA) Urine Ketones Urine Occult Blood Urine Nitrate Urine Nitrite Urine Bilirubin Urine Urobilinogen Ur Leukocyte Esterase Urine RBC Urine WBC Urine WBC Clumps Ur Squamous Epith Cells Ur Transition Epith Cell Ur Renal Epithelial Cell Amorphous Sediment Urine Bacteria Hyaline Casts Granular Casts Urine Mucus Micro UA Comment Urine Culture Comments Urine Eosinophils Urine Osmolality Ur Random Creatinine Ur Random Sodium Pleural pH Pleural WBC Pleural Nuc Cells Pleural RBC Pleural Neutrophils Pleural Eosinophils Pleural Lymphocytes Pleural Monocytes Pleural Histocytes Pleural Mesothelial Pleural Total Protein Pleural Amylase Pleural LDH Pleural Glucose Nasal Screen MRSA (PCR) Stl C.difficile Tox PCR St C. diff Tox Epid 027 Vancomycin Trough Random Vancomycin Phenytoin Free Phenytoin LOWELL Screen RPR Blood Type Antibody Screen MTS Gel Crossmatch Blood Bank Comment 02/06/18 02/06/18 02/06/18 11:58 12:39 18:49 WBC RBC Hgb Hct MCV MCH MCHC RDW Plt Count MPV Prelim Diff (Auto) Neut % (Auto) Lymph % (Auto) [place] % (Auto) Eos % (Auto) Baso % (Auto) Neut # (Auto) Lymph # (Auto) [place] # (Auto) Eos # (Auto) Baso # (Auto) CBC Comment WBC Differential Total Counted Neutrophils % (Manual) Seg Neuts % (Manual) Band Neutrophils % Band Neuts % (Manual) Lymphocytes % Lymphocytes % (Manual) Monocytes % Monocytes % (Manual) Eosinophils % Eosinophils % (Manual) Basophils % Metamyelocytes % (Man) Neutrophils # (Manual) Abs Neuts (Manual) Metamyelocytes Myelocytes Nucleated RBCs Differential Comment Smudge Cells Toxic Granulation Toxic Vacuolation Dohle Bodies Platelet Estimate Platelet Morphology Plt Morphology Comment Basophilic Stippling Spherocytes Tear Drop Cells Ovalocytes Acanthocytes (Spur) RBC Morph Comment ESR Hematology Comments PT 20.7 H INR 2.0 APTT Fibrinogen Puncture Site Patient Temperature HCO3 Base Excess O2 Saturation ABG pH ABG pCO2 ABG pO2 ABG HCO3 ABG O2 Content ABG Base Excess ABG Carboxyhemoglobin ABG Methemoglobin Stepan Test Hemoglobin Carboxyhemoglobin O2 Delivery Device Liter Flow Vent Setting Inspired O2 Critical Value Sodium Potassium Chloride Carbon Dioxide Anion Gap BUN Creatinine Estimated GFR POC Glucose 87 95 Random Glucose Hemoglobin A1c Lactic Acid Calcium Prot Corrected Calcium Phosphorus Magnesium Total Bilirubin Direct Bilirubin Indirect Bilirubin AST ALT Alkaline Phosphatase Ammonia Total Creatine Kinase Troponin I C-Reactive Protein B-Natriuretic Peptide Total Protein Albumin Prealbumin Triglycerides Cholesterol LDL Cholesterol HDL Cholesterol Cholesterol/HDL Ratio Thiamine Vitamin B12 Procalcitonin Free T4 TSH 3rd Generation Urine Color Urine Clarity Urine Turbidity Urine pH Ur Specific [place] Urine Protein Urine Glucose (UA) Urine Ketones Urine Occult Blood Urine Nitrate Urine Nitrite Urine Bilirubin Urine Urobilinogen Ur Leukocyte Esterase Urine RBC Urine WBC Urine WBC Clumps Ur Squamous Epith Cells Ur Transition Epith Cell Ur Renal Epithelial Cell Amorphous Sediment Urine Bacteria Hyaline Casts Granular Casts Urine Mucus Micro UA Comment Urine Culture Comments Urine Eosinophils Urine Osmolality Ur Random Creatinine Ur Random Sodium Pleural pH Pleural WBC Pleural Nuc Cells Pleural RBC Pleural Neutrophils Pleural Eosinophils Pleural Lymphocytes Pleural Monocytes Pleural Histocytes Pleural Mesothelial Pleural Total Protein Pleural Amylase Pleural LDH Pleural Glucose Nasal Screen MRSA (PCR) Stl C.difficile Tox PCR St C. diff Tox Epid 027 Vancomycin Trough Random Vancomycin Phenytoin Free Phenytoin LOWELL Screen RPR Blood Type Antibody Screen MTS Gel Crossmatch Blood Bank Comment 02/06/18 02/07/18 02/07/18 23:14 05:26 07:45 WBC RBC Hgb Hct MCV MCH MCHC RDW Plt Count MPV Prelim Diff (Auto) Neut % (Auto) Lymph % (Auto) [place] % (Auto) Eos % (Auto) Baso % (Auto) Neut # (Auto) Lymph # (Auto) [place] # (Auto) Eos # (Auto) Baso # (Auto) CBC Comment WBC Differential Total Counted Neutrophils % (Manual) Seg Neuts % (Manual) Band Neutrophils % Band Neuts % (Manual) Lymphocytes % Lymphocytes % (Manual) Monocytes % Monocytes % (Manual) Eosinophils % Eosinophils % (Manual) Basophils % Metamyelocytes % (Man) Neutrophils # (Manual) Abs Neuts (Manual) Metamyelocytes Myelocytes Nucleated RBCs Differential Comment Smudge Cells Toxic Granulation Toxic Vacuolation Dohle Bodies Platelet Estimate Platelet Morphology Plt Morphology Comment Basophilic Stippling Spherocytes Tear Drop Cells Ovalocytes Acanthocytes (Spur) RBC Morph Comment ESR Hematology Comments PT 20.3 H INR 2.0 APTT Fibrinogen Puncture Site Patient Temperature HCO3 Base Excess O2 Saturation ABG pH ABG pCO2 ABG pO2 ABG HCO3 ABG O2 Content ABG Base Excess ABG Carboxyhemoglobin ABG Methemoglobin Stepan Test Hemoglobin Carboxyhemoglobin O2 Delivery Device Liter Flow Vent Setting Inspired O2 Critical Value Sodium Potassium Chloride Carbon Dioxide Anion Gap BUN Creatinine Estimated GFR POC Glucose 178 H 198 H Random Glucose Hemoglobin A1c Lactic Acid Calcium Prot Corrected Calcium Phosphorus Magnesium Total Bilirubin Direct Bilirubin Indirect Bilirubin AST ALT Alkaline Phosphatase Ammonia Total Creatine Kinase Troponin I C-Reactive Protein B-Natriuretic Peptide Total Protein Albumin Prealbumin Triglycerides Cholesterol LDL Cholesterol HDL Cholesterol Cholesterol/HDL Ratio Thiamine Vitamin B12 Procalcitonin Free T4 TSH 3rd Generation Urine Color Urine Clarity Urine Turbidity Urine pH Ur Specific [place] Urine Protein Urine Glucose (UA) Urine Ketones Urine Occult Blood Urine Nitrate Urine Nitrite Urine Bilirubin Urine Urobilinogen Ur Leukocyte Esterase Urine RBC Urine WBC Urine WBC Clumps Ur Squamous Epith Cells Ur Transition Epith Cell Ur Renal Epithelial Cell Amorphous Sediment Urine Bacteria Hyaline Casts Granular Casts Urine Mucus Micro UA Comment Urine Culture Comments Urine Eosinophils Urine Osmolality Ur Random Creatinine Ur Random Sodium Pleural pH Pleural WBC Pleural Nuc Cells Pleural RBC Pleural Neutrophils Pleural Eosinophils Pleural Lymphocytes Pleural Monocytes Pleural Histocytes Pleural Mesothelial Pleural Total Protein Pleural Amylase Pleural LDH Pleural Glucose Nasal Screen MRSA (PCR) Stl C.difficile Tox PCR St C. diff Tox Epid 027 Vancomycin Trough Random Vancomycin Phenytoin Free Phenytoin LOWELL Screen RPR Blood Type Antibody Screen MTS Gel Crossmatch Blood Bank Comment 02/07/18 02/07/18 02/07/18 11:20 17:59 20:12 WBC RBC Hgb Hct MCV MCH MCHC RDW Plt Count MPV Prelim Diff (Auto) Neut % (Auto) Lymph % (Auto) [place] % (Auto) Eos % (Auto) Baso % (Auto) Neut # (Auto) Lymph # (Auto) [place] # (Auto) Eos # (Auto) Baso # (Auto) CBC Comment WBC Differential Total Counted Neutrophils % (Manual) Seg Neuts % (Manual) Band Neutrophils % Band Neuts % (Manual) Lymphocytes % Lymphocytes % (Manual) Monocytes % Monocytes % (Manual) Eosinophils % Eosinophils % (Manual) Basophils % Metamyelocytes % (Man) Neutrophils # (Manual) Abs Neuts (Manual) Metamyelocytes Myelocytes Nucleated RBCs Differential Comment Smudge Cells Toxic Granulation Toxic Vacuolation Dohle Bodies Platelet Estimate Platelet Morphology Plt Morphology Comment Basophilic Stippling Spherocytes Tear Drop Cells Ovalocytes Acanthocytes (Spur) RBC Morph Comment ESR Hematology Comments PT INR APTT Fibrinogen Puncture Site Patient Temperature HCO3 Base Excess O2 Saturation ABG pH ABG pCO2 ABG pO2 ABG HCO3 ABG O2 Content ABG Base Excess ABG Carboxyhemoglobin ABG Methemoglobin Stepan Test Hemoglobin Carboxyhemoglobin O2 Delivery Device Liter Flow Vent Setting Inspired O2 Critical Value Sodium Potassium Chloride Carbon Dioxide Anion Gap BUN Creatinine Estimated GFR POC Glucose 250 H 239 H 230 H Random Glucose Hemoglobin A1c Lactic Acid Calcium Prot Corrected Calcium Phosphorus Magnesium Total Bilirubin Direct Bilirubin Indirect Bilirubin AST ALT Alkaline Phosphatase Ammonia Total Creatine Kinase Troponin I C-Reactive Protein B-Natriuretic Peptide Total Protein Albumin Prealbumin Triglycerides Cholesterol LDL Cholesterol HDL Cholesterol Cholesterol/HDL Ratio Thiamine Vitamin B12 Procalcitonin Free T4 TSH 3rd Generation Urine Color Urine Clarity Urine Turbidity Urine pH Ur Specific [place] Urine Protein Urine Glucose (UA) Urine Ketones Urine Occult Blood Urine Nitrate Urine Nitrite Urine Bilirubin Urine Urobilinogen Ur Leukocyte Esterase Urine RBC Urine WBC Urine WBC Clumps Ur Squamous Epith Cells Ur Transition Epith Cell Ur Renal Epithelial Cell Amorphous Sediment Urine Bacteria Hyaline Casts Granular Casts Urine Mucus Micro UA Comment Urine Culture Comments Urine Eosinophils Urine Osmolality Ur Random Creatinine Ur Random Sodium Pleural pH Pleural WBC Pleural Nuc Cells Pleural RBC Pleural Neutrophils Pleural Eosinophils Pleural Lymphocytes Pleural Monocytes Pleural Histocytes Pleural Mesothelial Pleural Total Protein Pleural Amylase Pleural LDH Pleural Glucose Nasal Screen MRSA (PCR) Stl C.difficile Tox PCR St C. diff Tox Epid 027 Vancomycin Trough Random Vancomycin Phenytoin Free Phenytoin LOWELL Screen RPR Blood Type Antibody Screen MTS Gel Crossmatch Blood Bank Comment 02/08/18 02/08/18 02/08/18 00:14 05:55 08:05 WBC RBC Hgb Hct MCV MCH MCHC RDW Plt Count MPV Prelim Diff (Auto) Neut % (Auto) Lymph % (Auto) [place] % (Auto) Eos % (Auto) Baso % (Auto) Neut # (Auto) Lymph # (Auto) [place] # (Auto) Eos # (Auto) Baso # (Auto) CBC Comment WBC Differential Total Counted Neutrophils % (Manual) Seg Neuts % (Manual) Band Neutrophils % Band Neuts % (Manual) Lymphocytes % Lymphocytes % (Manual) Monocytes % Monocytes % (Manual) Eosinophils % Eosinophils % (Manual) Basophils % Metamyelocytes % (Man) Neutrophils # (Manual) Abs Neuts (Manual) Metamyelocytes Myelocytes Nucleated RBCs Differential Comment Smudge Cells Toxic Granulation Toxic Vacuolation Dohle Bodies Platelet Estimate Platelet Morphology Plt Morphology Comment Basophilic Stippling Spherocytes Tear Drop Cells Ovalocytes Acanthocytes (Spur) RBC Morph Comment ESR Hematology Comments PT INR APTT Fibrinogen Puncture Site Right radial Patient Temperature 98.6 HCO3 Base Excess O2 Saturation 97 ABG pH 7.12 L* ABG pCO2 62 H* ABG pO2 292 H ABG HCO3 19 L ABG O2 Content 12.9 ABG Base Excess -8.8 L ABG Carboxyhemoglobin ABG Methemoglobin 1.0 Stepan Test Present Hemoglobin 8.9 L Carboxyhemoglobin 1.3 O2 Delivery Device Ventilator Liter Flow Vent Setting Ac14/550/+8 Inspired O2 100 Critical Value Yes Sodium Potassium Chloride Carbon Dioxide Anion Gap BUN Creatinine Estimated GFR POC Glucose 179 H 188 H Random Glucose Hemoglobin A1c Lactic Acid Calcium Prot Corrected Calcium Phosphorus Magnesium Total Bilirubin Direct Bilirubin Indirect Bilirubin AST ALT Alkaline Phosphatase Ammonia Total Creatine Kinase Troponin I C-Reactive Protein B-Natriuretic Peptide Total Protein Albumin Prealbumin Triglycerides Cholesterol LDL Cholesterol HDL Cholesterol Cholesterol/HDL Ratio Thiamine Vitamin B12 Procalcitonin Free T4 TSH 3rd Generation Urine Color Urine Clarity Urine Turbidity Urine pH Ur Specific [place] Urine Protein Urine Glucose (UA) Urine Ketones Urine Occult Blood Urine Nitrate Urine Nitrite Urine Bilirubin Urine Urobilinogen Ur Leukocyte Esterase Urine RBC Urine WBC Urine WBC Clumps Ur Squamous Epith Cells Ur Transition Epith Cell Ur Renal Epithelial Cell Amorphous Sediment Urine Bacteria Hyaline Casts Granular Casts Urine Mucus Micro UA Comment Urine Culture Comments Urine Eosinophils Urine Osmolality Ur Random Creatinine Ur Random Sodium Pleural pH Pleural WBC Pleural Nuc Cells Pleural RBC Pleural Neutrophils Pleural Eosinophils Pleural Lymphocytes Pleural Monocytes Pleural Histocytes Pleural Mesothelial Pleural Total Protein Pleural Amylase Pleural LDH Pleural Glucose Nasal Screen MRSA (PCR) Stl C.difficile Tox PCR St C. diff Tox Epid 027 Vancomycin Trough Random Vancomycin Phenytoin Free Phenytoin LOWELL Screen RPR Blood Type Antibody Screen MTS Gel Crossmatch Blood Bank Comment 02/08/18 02/08/18 02/08/18 10:15 10:24 10:24 WBC 6.9 RBC 2.46 L Hgb 6.6 L* Hct 21.7 L MCV 88.1 MCH 27.0 MCHC 30.6 L RDW 19.3 H Plt Count 229 MPV 8.4 Prelim Diff (Auto) Neut % (Auto) Lymph % (Auto) [place] % (Auto) Eos % (Auto) Baso % (Auto) Neut # (Auto) Lymph # (Auto) [place] # (Auto) Eos # (Auto) Baso # (Auto) CBC Comment WBC Differential Total Counted Neutrophils % (Manual) Seg Neuts % (Manual) Band Neutrophils % Band Neuts % (Manual) Lymphocytes % Lymphocytes % (Manual) Monocytes % Monocytes % (Manual) Eosinophils % Eosinophils % (Manual) Basophils % Metamyelocytes % (Man) Neutrophils # (Manual) Abs Neuts (Manual) Metamyelocytes Myelocytes Nucleated RBCs Differential Comment Smudge Cells Toxic Granulation Toxic Vacuolation Dohle Bodies Platelet Estimate Platelet Morphology Plt Morphology Comment Basophilic Stippling Spherocytes Tear Drop Cells Ovalocytes Acanthocytes (Spur) RBC Morph Comment ESR Hematology Comments PT INR APTT Fibrinogen Puncture Site Right brachial Patient Temperature 98.6 HCO3 Base Excess O2 Saturation 93 ABG pH 7.38 ABG pCO2 41 ABG pO2 83 ABG HCO3 23 ABG O2 Content 12.9 ABG Base Excess -1.2 ABG Carboxyhemoglobin ABG Methemoglobin 1.0 Stepan Test Present Hemoglobin 9.8 L Carboxyhemoglobin 1.8 O2 Delivery Device Ventilator Liter Flow Vent Setting [employer] Inspired O2 50 Critical Value No Sodium 153 H Potassium 4.8 Chloride 119 H Carbon Dioxide 24.7 Anion Gap 9 BUN 80 H Creatinine 1.54 H Estimated GFR 44 L POC Glucose Random Glucose 215 H Hemoglobin A1c Lactic Acid Calcium 7.8 L Prot Corrected Calcium Phosphorus Magnesium 2.7 H Total Bilirubin 0.3 Direct Bilirubin Indirect Bilirubin AST 106 H ALT 89 H Alkaline Phosphatase 177 H Ammonia Total Creatine Kinase Troponin I C-Reactive Protein B-Natriuretic Peptide Total Protein 5.8 L Albumin 1.1 L Prealbumin Triglycerides Cholesterol LDL Cholesterol HDL Cholesterol Cholesterol/HDL Ratio Thiamine Vitamin B12 Procalcitonin Free T4 TSH 3rd Generation Urine Color Urine Clarity Urine Turbidity Urine pH Ur Specific [place] Urine Protein Urine Glucose (UA) Urine Ketones Urine Occult Blood Urine Nitrate Urine Nitrite Urine Bilirubin Urine Urobilinogen Ur Leukocyte Esterase Urine RBC Urine WBC Urine WBC Clumps Ur Squamous Epith Cells Ur Transition Epith Cell Ur Renal Epithelial Cell Amorphous Sediment Urine Bacteria Hyaline Casts Granular Casts Urine Mucus Micro UA Comment Urine Culture Comments Urine Eosinophils Urine Osmolality Ur Random Creatinine Ur Random Sodium Pleural pH Pleural WBC Pleural Nuc Cells Pleural RBC Pleural Neutrophils Pleural Eosinophils Pleural Lymphocytes Pleural Monocytes Pleural Histocytes Pleural Mesothelial Pleural Total Protein Pleural Amylase Pleural LDH Pleural Glucose Nasal Screen MRSA (PCR) Stl C.difficile Tox PCR St C. diff Tox Epid 027 Vancomycin Trough Random Vancomycin Phenytoin Free Phenytoin LOWELL Screen RPR Blood Type Antibody Screen MTS Gel Crossmatch Blood Bank Comment 02/08/18 02/08/18 02/08/18 10:24 12:00 12:07 WBC RBC Hgb Hct MCV MCH MCHC RDW Plt Count MPV Prelim Diff (Auto) Neut % (Auto) Lymph % (Auto) [place] % (Auto) Eos % (Auto) Baso % (Auto) Neut # (Auto) Lymph # (Auto) [place] # (Auto) Eos # (Auto) Baso # (Auto) CBC Comment WBC Differential Total Counted Neutrophils % (Manual) Seg Neuts % (Manual) Band Neutrophils % Band Neuts % (Manual) Lymphocytes % Lymphocytes % (Manual) Monocytes % Monocytes % (Manual) Eosinophils % Eosinophils % (Manual) Basophils % Metamyelocytes % (Man) Neutrophils # (Manual) Abs Neuts (Manual) Metamyelocytes Myelocytes Nucleated RBCs Differential Comment Smudge Cells Toxic Granulation Toxic Vacuolation Dohle Bodies Platelet Estimate Platelet Morphology Plt Morphology Comment Basophilic Stippling Spherocytes Tear Drop Cells Ovalocytes Acanthocytes (Spur) RBC Morph Comment ESR Hematology Comments PT INR APTT Fibrinogen Puncture Site Patient Temperature HCO3 Base Excess O2 Saturation ABG pH ABG pCO2 ABG pO2 ABG HCO3 ABG O2 Content ABG Base Excess ABG Carboxyhemoglobin ABG Methemoglobin Stepan Test Hemoglobin Carboxyhemoglobin O2 Delivery Device Liter Flow Vent Setting Inspired O2 Critical Value Sodium Potassium Chloride Carbon Dioxide Anion Gap BUN Creatinine Estimated GFR POC Glucose Random Glucose Hemoglobin A1c Lactic Acid 3.1 H Calcium Prot Corrected Calcium Phosphorus Magnesium Total Bilirubin Direct Bilirubin Indirect Bilirubin AST ALT Alkaline Phosphatase Ammonia Total Creatine Kinase Troponin I 0.05 C-Reactive Protein B-Natriuretic Peptide Total Protein Albumin Prealbumin Triglycerides Cholesterol LDL Cholesterol HDL Cholesterol Cholesterol/HDL Ratio Thiamine Vitamin B12 Procalcitonin Free T4 TSH 3rd Generation Urine Color Urine Clarity Urine Turbidity Urine pH Ur Specific [place] Urine Protein Urine Glucose (UA) Urine Ketones Urine Occult Blood Urine Nitrate Urine Nitrite Urine Bilirubin Urine Urobilinogen Ur Leukocyte Esterase Urine RBC Urine WBC Urine WBC Clumps Ur Squamous Epith Cells Ur Transition Epith Cell Ur Renal Epithelial Cell Amorphous Sediment Urine Bacteria Hyaline Casts Granular Casts Urine Mucus Micro UA Comment Urine Culture Comments Urine Eosinophils Urine Osmolality Ur Random Creatinine Ur Random Sodium Pleural pH Pleural WBC Pleural Nuc Cells Pleural RBC Pleural Neutrophils Pleural Eosinophils Pleural Lymphocytes Pleural Monocytes Pleural Histocytes Pleural Mesothelial Pleural Total Protein Pleural Amylase Pleural LDH Pleural Glucose Nasal Screen MRSA (PCR) Stl C.difficile Tox PCR St C. diff Tox Epid 027 Vancomycin Trough Random Vancomycin Phenytoin Free Phenytoin LOWELL Screen RPR Blood Type A Positive Antibody Screen Negative MTS Gel Crossmatch See Detail Blood Bank Comment 02/08/18 02/08/18 02/08/18 18:10 19:15 21:17 WBC RBC Hgb 8.9 L D Hct 27.8 L MCV MCH MCHC RDW Plt Count MPV Prelim Diff (Auto) Neut % (Auto) Lymph % (Auto) [place] % (Auto) Eos % (Auto) Baso % (Auto) Neut # (Auto) Lymph # (Auto) [place] # (Auto) Eos # (Auto) Baso # (Auto) CBC Comment WBC Differential Total Counted Neutrophils % (Manual) Seg Neuts % (Manual) Band Neutrophils % Band Neuts % (Manual) Lymphocytes % Lymphocytes % (Manual) Monocytes % Monocytes % (Manual) Eosinophils % Eosinophils % (Manual) Basophils % Metamyelocytes % (Man) Neutrophils # (Manual) Abs Neuts (Manual) Metamyelocytes Myelocytes Nucleated RBCs Differential Comment Smudge Cells Toxic Granulation Toxic Vacuolation Dohle Bodies Platelet Estimate Platelet Morphology Plt Morphology Comment Basophilic Stippling Spherocytes Tear Drop Cells Ovalocytes Acanthocytes (Spur) RBC Morph Comment ESR Hematology Comments PT INR APTT Fibrinogen Puncture Site Patient Temperature HCO3 Base Excess O2 Saturation ABG pH ABG pCO2 ABG pO2 ABG HCO3 ABG O2 Content ABG Base Excess ABG Carboxyhemoglobin ABG Methemoglobin Stepan Test Hemoglobin Carboxyhemoglobin O2 Delivery Device Liter Flow Vent Setting Inspired O2 Critical Value Sodium Potassium Chloride Carbon Dioxide Anion Gap BUN Creatinine Estimated GFR POC Glucose 130 H 95 Random Glucose Hemoglobin A1c Lactic Acid Calcium Prot Corrected Calcium Phosphorus Magnesium Total Bilirubin Direct Bilirubin Indirect Bilirubin AST ALT Alkaline Phosphatase Ammonia Total Creatine Kinase Troponin I C-Reactive Protein B-Natriuretic Peptide Total Protein Albumin Prealbumin Triglycerides Cholesterol LDL Cholesterol HDL Cholesterol Cholesterol/HDL Ratio Thiamine Vitamin B12 Procalcitonin Free T4 TSH 3rd Generation Urine Color Urine Clarity Urine Turbidity Urine pH Ur Specific [place] Urine Protein Urine Glucose (UA) Urine Ketones Urine Occult Blood Urine Nitrate Urine Nitrite Urine Bilirubin Urine Urobilinogen Ur Leukocyte Esterase Urine RBC Urine WBC Urine WBC Clumps Ur Squamous Epith Cells Ur Transition Epith Cell Ur Renal Epithelial Cell Amorphous Sediment Urine Bacteria Hyaline Casts Granular Casts Urine Mucus Micro UA Comment Urine Culture Comments Urine Eosinophils Urine Osmolality Ur Random Creatinine Ur Random Sodium Pleural pH Pleural WBC Pleural Nuc Cells Pleural RBC Pleural Neutrophils Pleural Eosinophils Pleural Lymphocytes Pleural Monocytes Pleural Histocytes Pleural Mesothelial Pleural Total Protein Pleural Amylase Pleural LDH Pleural Glucose Nasal Screen MRSA (PCR) Stl C.difficile Tox PCR St C. diff Tox Epid 027 Vancomycin Trough Random Vancomycin Phenytoin Free Phenytoin LOWELL Screen RPR Blood Type Antibody Screen MTS Gel Crossmatch Blood Bank Comment 02/09/18 02/09/18 02/09/18 01:01 05:22 05:43 WBC RBC Hgb Hct MCV MCH MCHC RDW Plt Count MPV Prelim Diff (Auto) Neut % (Auto) Lymph % (Auto) [place] % (Auto) Eos % (Auto) Baso % (Auto) Neut # (Auto) Lymph # (Auto) [place] # (Auto) Eos # (Auto) Baso # (Auto) CBC Comment WBC Differential Total Counted Neutrophils % (Manual) Seg Neuts % (Manual) Band Neutrophils % Band Neuts % (Manual) Lymphocytes % Lymphocytes % (Manual) Monocytes % Monocytes % (Manual) Eosinophils % Eosinophils % (Manual) Basophils % Metamyelocytes % (Man) Neutrophils # (Manual) Abs Neuts (Manual) Metamyelocytes Myelocytes Nucleated RBCs Differential Comment Smudge Cells Toxic Granulation Toxic Vacuolation Dohle Bodies Platelet Estimate Platelet Morphology Plt Morphology Comment Basophilic Stippling Spherocytes Tear Drop Cells Ovalocytes Acanthocytes (Spur) RBC Morph Comment ESR Hematology Comments PT 26.9 H INR 2.7 APTT Fibrinogen Puncture Site Patient Temperature HCO3 Base Excess O2 Saturation ABG pH ABG pCO2 ABG pO2 ABG HCO3 ABG O2 Content ABG Base Excess ABG Carboxyhemoglobin ABG Methemoglobin Stepan Test Hemoglobin Carboxyhemoglobin O2 Delivery Device Liter Flow Vent Setting Inspired O2 Critical Value Sodium Potassium Chloride Carbon Dioxide Anion Gap BUN Creatinine Estimated GFR POC Glucose 95 88 Random Glucose Hemoglobin A1c Lactic Acid Calcium Prot Corrected Calcium Phosphorus Magnesium Total Bilirubin Direct Bilirubin Indirect Bilirubin AST ALT Alkaline Phosphatase Ammonia Total Creatine Kinase Troponin I C-Reactive Protein B-Natriuretic Peptide Total Protein Albumin Prealbumin Triglycerides Cholesterol LDL Cholesterol HDL Cholesterol Cholesterol/HDL Ratio Thiamine Vitamin B12 Procalcitonin Free T4 TSH 3rd Generation Urine Color Urine Clarity Urine Turbidity Urine pH Ur Specific [place] Urine Protein Urine Glucose (UA) Urine Ketones Urine Occult Blood Urine Nitrate Urine Nitrite Urine Bilirubin Urine Urobilinogen Ur Leukocyte Esterase Urine RBC Urine WBC Urine WBC Clumps Ur Squamous Epith Cells Ur Transition Epith Cell Ur Renal Epithelial Cell Amorphous Sediment Urine Bacteria Hyaline Casts Granular Casts Urine Mucus Micro UA Comment Urine Culture Comments Urine Eosinophils Urine Osmolality Ur Random Creatinine Ur Random Sodium Pleural pH Pleural WBC Pleural Nuc Cells Pleural RBC Pleural Neutrophils Pleural Eosinophils Pleural Lymphocytes Pleural Monocytes Pleural Histocytes Pleural Mesothelial Pleural Total Protein Pleural Amylase Pleural LDH Pleural Glucose Nasal Screen MRSA (PCR) Stl C.difficile Tox PCR St C. diff Tox Epid 027 Vancomycin Trough Random Vancomycin Phenytoin Free Phenytoin LOWELL Screen RPR Blood Type Antibody Screen MTS Gel Crossmatch Blood Bank Comment 02/09/18 02/09/18 02/09/18 08:15 08:15 08:15 WBC 10.7 D RBC 2.80 L Hgb 7.8 L Hct 23.8 L MCV 85.1 MCH 27.8 MCHC 32.7 RDW 19.1 H Plt Count 183 MPV 8.2 Prelim Diff (Auto) Neut % (Auto) Lymph % (Auto) [place] % (Auto) Eos % (Auto) Baso % (Auto) Neut # (Auto) Lymph # (Auto) [place] # (Auto) Eos # (Auto) Baso # (Auto) CBC Comment WBC Differential Total Counted Neutrophils % (Manual) Seg Neuts % (Manual) Band Neutrophils % Band Neuts % (Manual) Lymphocytes % Lymphocytes % (Manual) Monocytes % Monocytes % (Manual) Eosinophils % Eosinophils % (Manual) Basophils % Metamyelocytes % (Man) Neutrophils # (Manual) Abs Neuts (Manual) Metamyelocytes Myelocytes Nucleated RBCs Differential Comment Smudge Cells Toxic Granulation Toxic Vacuolation Dohle Bodies Platelet Estimate Platelet Morphology Plt Morphology Comment Basophilic Stippling Spherocytes Tear Drop Cells Ovalocytes Acanthocytes (Spur) RBC Morph Comment ESR Hematology Comments PT INR APTT Fibrinogen Puncture Site Patient Temperature HCO3 Base Excess O2 Saturation ABG pH ABG pCO2 ABG pO2 ABG HCO3 ABG O2 Content ABG Base Excess ABG Carboxyhemoglobin ABG Methemoglobin Stepan Test Hemoglobin Carboxyhemoglobin O2 Delivery Device Liter Flow Vent Setting Inspired O2 Critical Value Sodium 155 H Potassium 3.8 D Chloride 121 H Carbon Dioxide 27.6 Anion Gap 6 BUN 81 H Creatinine 1.39 H Estimated GFR 49 L POC Glucose Random Glucose 62 L D Hemoglobin A1c Lactic Acid 1.7 Calcium 7.6 L Prot Corrected Calcium Phosphorus Magnesium Total Bilirubin 0.4 Direct Bilirubin Indirect Bilirubin AST 65 H ALT 66 Alkaline Phosphatase 151 H Ammonia Total Creatine Kinase Troponin I C-Reactive Protein B-Natriuretic Peptide Total Protein 5.9 L Albumin 1.0 L Prealbumin Triglycerides Cholesterol LDL Cholesterol HDL Cholesterol Cholesterol/HDL Ratio Thiamine Vitamin B12 Procalcitonin Free T4 TSH 3rd Generation Urine Color Urine Clarity Urine Turbidity Urine pH Ur Specific [place] Urine Protein Urine Glucose (UA) Urine Ketones Urine Occult Blood Urine Nitrate Urine Nitrite Urine Bilirubin Urine Urobilinogen Ur Leukocyte Esterase Urine RBC Urine WBC Urine WBC Clumps Ur Squamous Epith Cells Ur Transition Epith Cell Ur Renal Epithelial Cell Amorphous Sediment Urine Bacteria Hyaline Casts Granular Casts Urine Mucus Micro UA Comment Urine Culture Comments Urine Eosinophils Urine Osmolality Ur Random Creatinine Ur Random Sodium Pleural pH Pleural WBC Pleural Nuc Cells Pleural RBC Pleural Neutrophils Pleural Eosinophils Pleural Lymphocytes Pleural Monocytes Pleural Histocytes Pleural Mesothelial Pleural Total Protein Pleural Amylase Pleural LDH Pleural Glucose Nasal Screen MRSA (PCR) Stl C.difficile Tox PCR St C. diff Tox Epid 027 Vancomycin Trough Random Vancomycin Phenytoin Free Phenytoin LOWELL Screen RPR Blood Type Antibody Screen MTS Gel Crossmatch Blood Bank Comment 02/09/18 02/09/18 02/09/18 12:30 13:17 14:13 WBC RBC Hgb Hct MCV MCH MCHC RDW Plt Count MPV Prelim Diff (Auto) Neut % (Auto) Lymph % (Auto) [place] % (Auto) Eos % (Auto) Baso % (Auto) Neut # (Auto) Lymph # (Auto) [place] # (Auto) Eos # (Auto) Baso # (Auto) CBC Comment WBC Differential Total Counted Neutrophils % (Manual) Seg Neuts % (Manual) Band Neutrophils % Band Neuts % (Manual) Lymphocytes % Lymphocytes % (Manual) Monocytes % Monocytes % (Manual) Eosinophils % Eosinophils % (Manual) Basophils % Metamyelocytes % (Man) Neutrophils # (Manual) Abs Neuts (Manual) Metamyelocytes Myelocytes Nucleated RBCs Differential Comment Smudge Cells Toxic Granulation Toxic Vacuolation Dohle Bodies Platelet Estimate Platelet Morphology Plt Morphology Comment Basophilic Stippling Spherocytes Tear Drop Cells Ovalocytes Acanthocytes (Spur) RBC Morph Comment ESR Hematology Comments PT INR APTT Fibrinogen Puncture Site Patient Temperature HCO3 Base Excess O2 Saturation ABG pH ABG pCO2 ABG pO2 ABG HCO3 ABG O2 Content ABG Base Excess ABG Carboxyhemoglobin ABG Methemoglobin Stepan Test Hemoglobin Carboxyhemoglobin O2 Delivery Device Liter Flow Vent Setting Inspired O2 Critical Value Sodium Potassium Chloride Carbon Dioxide Anion Gap BUN Creatinine Estimated GFR POC Glucose 62 L 89 107 Random Glucose Hemoglobin A1c Lactic Acid Calcium Prot Corrected Calcium Phosphorus Magnesium Total Bilirubin Direct Bilirubin Indirect Bilirubin AST ALT Alkaline Phosphatase Ammonia Total Creatine Kinase Troponin I C-Reactive Protein B-Natriuretic Peptide Total Protein Albumin Prealbumin Triglycerides Cholesterol LDL Cholesterol HDL Cholesterol Cholesterol/HDL Ratio Thiamine Vitamin B12 Procalcitonin Free T4 TSH 3rd Generation Urine Color Urine Clarity Urine Turbidity Urine pH Ur Specific [place] Urine Protein Urine Glucose (UA) Urine Ketones Urine Occult Blood Urine Nitrate Urine Nitrite Urine Bilirubin Urine Urobilinogen Ur Leukocyte Esterase Urine RBC Urine WBC Urine WBC Clumps Ur Squamous Epith Cells Ur Transition Epith Cell Ur Renal Epithelial Cell Amorphous Sediment Urine Bacteria Hyaline Casts Granular Casts Urine Mucus Micro UA Comment Urine Culture Comments Urine Eosinophils Urine Osmolality Ur Random Creatinine Ur Random Sodium Pleural pH Pleural WBC Pleural Nuc Cells Pleural RBC Pleural Neutrophils Pleural Eosinophils Pleural Lymphocytes Pleural Monocytes Pleural Histocytes Pleural Mesothelial Pleural Total Protein Pleural Amylase Pleural LDH Pleural Glucose Nasal Screen MRSA (PCR) Stl C.difficile Tox PCR St C. diff Tox Epid 027 Vancomycin Trough Random Vancomycin Phenytoin Free Phenytoin LOWELL Screen RPR Blood Type Antibody Screen MTS Gel Crossmatch Blood Bank Comment 02/09/18 02/09/18 02/09/18 14:55 17:43 19:48 WBC RBC Hgb Hct MCV MCH MCHC RDW Plt Count MPV Prelim Diff (Auto) Neut % (Auto) Lymph % (Auto) [place] % (Auto) Eos % (Auto) Baso % (Auto) Neut # (Auto) Lymph # (Auto) [place] # (Auto) Eos # (Auto) Baso # (Auto) CBC Comment WBC Differential Total Counted Neutrophils % (Manual) Seg Neuts % (Manual) Band Neutrophils % Band Neuts % (Manual) Lymphocytes % Lymphocytes % (Manual) Monocytes % Monocytes % (Manual) Eosinophils % Eosinophils % (Manual) Basophils % Metamyelocytes % (Man) Neutrophils # (Manual) Abs Neuts (Manual) Metamyelocytes Myelocytes Nucleated RBCs Differential Comment Smudge Cells Toxic Granulation Toxic Vacuolation Dohle Bodies Platelet Estimate Platelet Morphology Plt Morphology Comment Basophilic Stippling Spherocytes Tear Drop Cells Ovalocytes Acanthocytes (Spur) RBC Morph Comment ESR Hematology Comments PT INR APTT Fibrinogen Puncture Site Patient Temperature HCO3 Base Excess O2 Saturation ABG pH ABG pCO2 ABG pO2 ABG HCO3 ABG O2 Content ABG Base Excess ABG Carboxyhemoglobin ABG Methemoglobin Stepan Test Hemoglobin Carboxyhemoglobin O2 Delivery Device Liter Flow Vent Setting Inspired O2 Critical Value Sodium 156 H* Potassium 3.6 Chloride 120 H Carbon Dioxide 27.1 Anion Gap 9 BUN 79 H Creatinine 1.41 H Estimated GFR 49 L POC Glucose 92 95 Random Glucose 89 Hemoglobin A1c Lactic Acid Calcium 7.7 L Prot Corrected Calcium Phosphorus Magnesium Total Bilirubin 0.3 Direct Bilirubin Indirect Bilirubin AST 60 H ALT 62 Alkaline Phosphatase 144 H Ammonia Total Creatine Kinase Troponin I C-Reactive Protein B-Natriuretic Peptide Total Protein 5.8 L Albumin 1.0 L Prealbumin Triglycerides Cholesterol LDL Cholesterol HDL Cholesterol Cholesterol/HDL Ratio Thiamine Vitamin B12 Procalcitonin Free T4 TSH 3rd Generation Urine Color Urine Clarity Urine Turbidity Urine pH Ur Specific [place] Urine Protein Urine Glucose (UA) Urine Ketones Urine Occult Blood Urine Nitrate Urine Nitrite Urine Bilirubin Urine Urobilinogen Ur Leukocyte Esterase Urine RBC Urine WBC Urine WBC Clumps Ur Squamous Epith Cells Ur Transition Epith Cell Ur Renal Epithelial Cell Amorphous Sediment Urine Bacteria Hyaline Casts Granular Casts Urine Mucus Micro UA Comment Urine Culture Comments Urine Eosinophils Urine Osmolality Ur Random Creatinine Ur Random Sodium Pleural pH Pleural WBC Pleural Nuc Cells Pleural RBC Pleural Neutrophils Pleural Eosinophils Pleural Lymphocytes Pleural Monocytes Pleural Histocytes Pleural Mesothelial Pleural Total Protein Pleural Amylase Pleural LDH Pleural Glucose Nasal Screen MRSA (PCR) Stl C.difficile Tox PCR St C. diff Tox Epid 027 Vancomycin Trough Random Vancomycin Phenytoin Free Phenytoin LOWELL Screen RPR Blood Type Antibody Screen MTS Gel Crossmatch Blood Bank Comment 02/09/18 02/10/18 02/10/18 23:07 05:07 05:07 WBC 10.2 RBC 2.75 L Hgb 7.6 L Hct 23.6 L MCV 85.8 MCH 27.7 MCHC 32.3 RDW 19.5 H Plt Count 180 MPV 8.3 Prelim Diff (Auto) Neut % (Auto) Lymph % (Auto) [place] % (Auto) Eos % (Auto) Baso % (Auto) Neut # (Auto) Lymph # (Auto) [place] # (Auto) Eos # (Auto) Baso # (Auto) CBC Comment WBC Differential Total Counted Neutrophils % (Manual) Seg Neuts % (Manual) Band Neutrophils % Band Neuts % (Manual) Lymphocytes % Lymphocytes % (Manual) Monocytes % Monocytes % (Manual) Eosinophils % Eosinophils % (Manual) Basophils % Metamyelocytes % (Man) Neutrophils # (Manual) Abs Neuts (Manual) Metamyelocytes Myelocytes Nucleated RBCs Differential Comment Smudge Cells Toxic Granulation Toxic Vacuolation Dohle Bodies Platelet Estimate Platelet Morphology Plt Morphology Comment Basophilic Stippling Spherocytes Tear Drop Cells Ovalocytes Acanthocytes (Spur) RBC Morph Comment ESR Hematology Comments PT 39.4 H D INR 3.9 APTT Fibrinogen Puncture Site Patient Temperature HCO3 Base Excess O2 Saturation ABG pH ABG pCO2 ABG pO2 ABG HCO3 ABG O2 Content ABG Base Excess ABG Carboxyhemoglobin ABG Methemoglobin Stepan Test Hemoglobin Carboxyhemoglobin O2 Delivery Device Liter Flow Vent Setting Inspired O2 Critical Value Sodium Potassium Chloride Carbon Dioxide Anion Gap BUN Creatinine Estimated GFR POC Glucose 73 Random Glucose Hemoglobin A1c Lactic Acid Calcium Prot Corrected Calcium Phosphorus Magnesium Total Bilirubin Direct Bilirubin Indirect Bilirubin AST ALT Alkaline Phosphatase Ammonia Total Creatine Kinase Troponin I C-Reactive Protein B-Natriuretic Peptide Total Protein Albumin Prealbumin Triglycerides Cholesterol LDL Cholesterol HDL Cholesterol Cholesterol/HDL Ratio Thiamine Vitamin B12 Procalcitonin Free T4 TSH 3rd Generation Urine Color Urine Clarity Urine Turbidity Urine pH Ur Specific [place] Urine Protein Urine Glucose (UA) Urine Ketones Urine Occult Blood Urine Nitrate Urine Nitrite Urine Bilirubin Urine Urobilinogen Ur Leukocyte Esterase Urine RBC Urine WBC Urine WBC Clumps Ur Squamous Epith Cells Ur Transition Epith Cell Ur Renal Epithelial Cell Amorphous Sediment Urine Bacteria Hyaline Casts Granular Casts Urine Mucus Micro UA Comment Urine Culture Comments Urine Eosinophils Urine Osmolality Ur Random Creatinine Ur Random Sodium Pleural pH Pleural WBC Pleural Nuc Cells Pleural RBC Pleural Neutrophils Pleural Eosinophils Pleural Lymphocytes Pleural Monocytes Pleural Histocytes Pleural Mesothelial Pleural Total Protein Pleural Amylase Pleural LDH Pleural Glucose Nasal Screen MRSA (PCR) Stl C.difficile Tox PCR St C. diff Tox Epid 027 Vancomycin Trough Random Vancomycin Phenytoin Free Phenytoin LOWELL Screen RPR Blood Type Antibody Screen MTS Gel Crossmatch Blood Bank Comment 02/10/18 02/10/18 02/10/18 05:07 05:47 08:42 WBC RBC Hgb Hct MCV MCH MCHC RDW Plt Count MPV Prelim Diff (Auto) Neut % (Auto) Lymph % (Auto) [place] % (Auto) Eos % (Auto) Baso % (Auto) Neut # (Auto) Lymph # (Auto) [place] # (Auto) Eos # (Auto) Baso # (Auto) CBC Comment WBC Differential Total Counted Neutrophils % (Manual) Seg Neuts % (Manual) Band Neutrophils % Band Neuts % (Manual) Lymphocytes % Lymphocytes % (Manual) Monocytes % Monocytes % (Manual) Eosinophils % Eosinophils % (Manual) Basophils % Metamyelocytes % (Man) Neutrophils # (Manual) Abs Neuts (Manual) Metamyelocytes Myelocytes Nucleated RBCs Differential Comment Smudge Cells Toxic Granulation Toxic Vacuolation Dohle Bodies Platelet Estimate Platelet Morphology Plt Morphology Comment Basophilic Stippling Spherocytes Tear Drop Cells Ovalocytes Acanthocytes (Spur) RBC Morph Comment ESR Hematology Comments PT INR APTT Fibrinogen Puncture Site Right brachial Patient Temperature 98.6 HCO3 Base Excess O2 Saturation 96 ABG pH 7.44 H ABG pCO2 37 L ABG pO2 110 ABG HCO3 24 ABG O2 Content 13.5 ABG Base Excess 0.7 ABG Carboxyhemoglobin ABG Methemoglobin 0.8 Stepan Test Present Hemoglobin 9.8 L Carboxyhemoglobin 1.5 O2 Delivery Device Ventilator Liter Flow Vent Setting Inspired O2 40 Critical Value No Sodium 155 H Potassium 3.5 Chloride 120 H Carbon Dioxide 26.6 Anion Gap 8 BUN 80 H Creatinine 1.41 H Estimated GFR 49 L POC Glucose 124 H Random Glucose 101 Hemoglobin A1c Lactic Acid Calcium 7.5 L Prot Corrected Calcium Phosphorus Magnesium 2.3 Total Bilirubin 0.3 Direct Bilirubin Indirect Bilirubin AST 65 H ALT 57 Alkaline Phosphatase 155 H Ammonia Total Creatine Kinase Troponin I C-Reactive Protein B-Natriuretic Peptide Total Protein 5.9 L Albumin 1.0 L Prealbumin Triglycerides Cholesterol LDL Cholesterol HDL Cholesterol Cholesterol/HDL Ratio Thiamine Vitamin B12 Procalcitonin Free T4 TSH 3rd Generation Urine Color Urine Clarity Urine Turbidity Urine pH Ur Specific [place] Urine Protein Urine Glucose (UA) Urine Ketones Urine Occult Blood Urine Nitrate Urine Nitrite Urine Bilirubin Urine Urobilinogen Ur Leukocyte Esterase Urine RBC Urine WBC Urine WBC Clumps Ur Squamous Epith Cells Ur Transition Epith Cell Ur Renal Epithelial Cell Amorphous Sediment Urine Bacteria Hyaline Casts Granular Casts Urine Mucus Micro UA Comment Urine Culture Comments Urine Eosinophils Urine Osmolality Ur Random Creatinine Ur Random Sodium Pleural pH Pleural WBC Pleural Nuc Cells Pleural RBC Pleural Neutrophils Pleural Eosinophils Pleural Lymphocytes Pleural Monocytes Pleural Histocytes Pleural Mesothelial Pleural Total Protein Pleural Amylase Pleural LDH Pleural Glucose Nasal Screen MRSA (PCR) Stl C.difficile Tox PCR St C. diff Tox Epid 027 Vancomycin Trough Random Vancomycin Phenytoin Free Phenytoin LOWELL Screen RPR Blood Type Antibody Screen MTS Gel Crossmatch Blood Bank Comment 02/10/18 02/10/18 02/10/18 12:56 13:10 16:39 WBC RBC Hgb Hct MCV MCH MCHC RDW Plt Count MPV Prelim Diff (Auto) Neut % (Auto) Lymph % (Auto) [place] % (Auto) Eos % (Auto) Baso % (Auto) Neut # (Auto) Lymph # (Auto) [place] # (Auto) Eos # (Auto) Baso # (Auto) CBC Comment WBC Differential Total Counted Neutrophils % (Manual) Seg Neuts % (Manual) Band Neutrophils % Band Neuts % (Manual) Lymphocytes % Lymphocytes % (Manual) Monocytes % Monocytes % (Manual) Eosinophils % Eosinophils % (Manual) Basophils % Metamyelocytes % (Man) Neutrophils # (Manual) Abs Neuts (Manual) Metamyelocytes Myelocytes Nucleated RBCs Differential Comment Smudge Cells Toxic Granulation Toxic Vacuolation Dohle Bodies Platelet Estimate Platelet Morphology Plt Morphology Comment Basophilic Stippling Spherocytes Tear Drop Cells Ovalocytes Acanthocytes (Spur) RBC Morph Comment ESR Hematology Comments PT INR APTT Fibrinogen Puncture Site Patient Temperature HCO3 Base Excess O2 Saturation ABG pH ABG pCO2 ABG pO2 ABG HCO3 ABG O2 Content ABG Base Excess ABG Carboxyhemoglobin ABG Methemoglobin Stepan Test Hemoglobin Carboxyhemoglobin O2 Delivery Device Liter Flow Vent Setting Inspired O2 Critical Value Sodium 153 H Potassium Chloride Carbon Dioxide Anion Gap BUN Creatinine Estimated GFR POC Glucose 144 H 154 H Random Glucose Hemoglobin A1c Lactic Acid Calcium Prot Corrected Calcium Phosphorus Magnesium Total Bilirubin Direct Bilirubin Indirect Bilirubin AST ALT Alkaline Phosphatase Ammonia Total Creatine Kinase Troponin I C-Reactive Protein B-Natriuretic Peptide Total Protein Albumin Prealbumin Triglycerides Cholesterol LDL Cholesterol HDL Cholesterol Cholesterol/HDL Ratio Thiamine Vitamin B12 Procalcitonin Free T4 TSH 3rd Generation Urine Color Urine Clarity Urine Turbidity Urine pH Ur Specific [place] Urine Protein Urine Glucose (UA) Urine Ketones Urine Occult Blood Urine Nitrate Urine Nitrite Urine Bilirubin Urine Urobilinogen Ur Leukocyte Esterase Urine RBC Urine WBC Urine WBC Clumps Ur Squamous Epith Cells Ur Transition Epith Cell Ur Renal Epithelial Cell Amorphous Sediment Urine Bacteria Hyaline Casts Granular Casts Urine Mucus Micro UA Comment Urine Culture Comments Urine Eosinophils Urine Osmolality Ur Random Creatinine Ur Random Sodium Pleural pH Pleural WBC Pleural Nuc Cells Pleural RBC Pleural Neutrophils Pleural Eosinophils Pleural Lymphocytes Pleural Monocytes Pleural Histocytes Pleural Mesothelial Pleural Total Protein Pleural Amylase Pleural LDH Pleural Glucose Nasal Screen MRSA (PCR) Stl C.difficile Tox PCR St C. diff Tox Epid 027 Vancomycin Trough Random Vancomycin Phenytoin Free Phenytoin LOWELL Screen RPR Blood Type Antibody Screen MTS Gel Crossmatch Blood Bank Comment 02/10/18 02/11/18 02/11/18 22:43 00:52 04:00 WBC RBC Hgb Hct MCV MCH MCHC RDW Plt Count MPV Prelim Diff (Auto) Neut % (Auto) Lymph % (Auto) [place] % (Auto) Eos % (Auto) Baso % (Auto) Neut # (Auto) Lymph # (Auto) [place] # (Auto) Eos # (Auto) Baso # (Auto) CBC Comment WBC Differential Total Counted Neutrophils % (Manual) Seg Neuts % (Manual) Band Neutrophils % Band Neuts % (Manual) Lymphocytes % Lymphocytes % (Manual) Monocytes % Monocytes % (Manual) Eosinophils % Eosinophils % (Manual) Basophils % Metamyelocytes % (Man) Neutrophils # (Manual) Abs Neuts (Manual) Metamyelocytes Myelocytes Nucleated RBCs Differential Comment Smudge Cells Toxic Granulation Toxic Vacuolation Dohle Bodies Platelet Estimate Platelet Morphology Plt Morphology Comment Basophilic Stippling Spherocytes Tear Drop Cells Ovalocytes Acanthocytes (Spur) RBC Morph Comment ESR Hematology Comments PT 32.6 H INR 3.2 APTT Fibrinogen Puncture Site Patient Temperature HCO3 Base Excess O2 Saturation ABG pH ABG pCO2 ABG pO2 ABG HCO3 ABG O2 Content ABG Base Excess ABG Carboxyhemoglobin ABG Methemoglobin Stepan Test Hemoglobin Carboxyhemoglobin O2 Delivery Device Liter Flow Vent Setting Inspired O2 Critical Value Sodium Potassium Chloride Carbon Dioxide Anion Gap BUN Creatinine Estimated GFR POC Glucose 165 H 189 H Random Glucose Hemoglobin A1c Lactic Acid Calcium Prot Corrected Calcium Phosphorus Magnesium Total Bilirubin Direct Bilirubin Indirect Bilirubin AST ALT Alkaline Phosphatase Ammonia Total Creatine Kinase Troponin I C-Reactive Protein B-Natriuretic Peptide Total Protein Albumin Prealbumin Triglycerides Cholesterol LDL Cholesterol HDL Cholesterol Cholesterol/HDL Ratio Thiamine Vitamin B12 Procalcitonin Free T4 TSH 3rd Generation Urine Color Urine Clarity Urine Turbidity Urine pH Ur Specific [place] Urine Protein Urine Glucose (UA) Urine Ketones Urine Occult Blood Urine Nitrate Urine Nitrite Urine Bilirubin Urine Urobilinogen Ur Leukocyte Esterase Urine RBC Urine WBC Urine WBC Clumps Ur Squamous Epith Cells Ur Transition Epith Cell Ur Renal Epithelial Cell Amorphous Sediment Urine Bacteria Hyaline Casts Granular Casts Urine Mucus Micro UA Comment Urine Culture Comments Urine Eosinophils Urine Osmolality Ur Random Creatinine Ur Random Sodium Pleural pH Pleural WBC Pleural Nuc Cells Pleural RBC Pleural Neutrophils Pleural Eosinophils Pleural Lymphocytes Pleural Monocytes Pleural Histocytes Pleural Mesothelial Pleural Total Protein Pleural Amylase Pleural LDH Pleural Glucose Nasal Screen MRSA (PCR) Stl C.difficile Tox PCR St C. diff Tox Epid 027 Vancomycin Trough Random Vancomycin Phenytoin Free Phenytoin LOWELL Screen RPR Blood Type Antibody Screen MTS Gel Crossmatch Blood Bank Comment 02/11/18 02/11/18 02/11/18 04:00 04:00 11:30 WBC 6.7 RBC 2.63 L Hgb 7.2 L Hct 22.5 L MCV 85.7 MCH 27.3 MCHC 31.8 L RDW 19.5 H Plt Count 177 MPV 8.3 Prelim Diff (Auto) Neut % (Auto) Lymph % (Auto) [place] % (Auto) Eos % (Auto) Baso % (Auto) Neut # (Auto) Lymph # (Auto) [place] # (Auto) Eos # (Auto) Baso # (Auto) CBC Comment WBC Differential Total Counted Neutrophils % (Manual) Seg Neuts % (Manual) Band Neutrophils % Band Neuts % (Manual) Lymphocytes % Lymphocytes % (Manual) Monocytes % Monocytes % (Manual) Eosinophils % Eosinophils % (Manual) Basophils % Metamyelocytes % (Man) Neutrophils # (Manual) Abs Neuts (Manual) Metamyelocytes Myelocytes Nucleated RBCs Differential Comment Smudge Cells Toxic Granulation Toxic Vacuolation Dohle Bodies Platelet Estimate Platelet Morphology Plt Morphology Comment Basophilic Stippling Spherocytes Tear Drop Cells Ovalocytes Acanthocytes (Spur) RBC Morph Comment ESR Hematology Comments PT INR APTT Fibrinogen Puncture Site Patient Temperature HCO3 Base Excess O2 Saturation ABG pH ABG pCO2 ABG pO2 ABG HCO3 ABG O2 Content ABG Base Excess ABG Carboxyhemoglobin ABG Methemoglobin Stepan Test Hemoglobin Carboxyhemoglobin O2 Delivery Device Liter Flow Vent Setting Inspired O2 Critical Value Sodium 154 H Potassium 3.3 L Chloride 118 H Carbon Dioxide 25.7 Anion Gap 10 BUN 73 H Creatinine 1.40 H Estimated GFR 49 L POC Glucose 174 H Random Glucose 138 H Hemoglobin A1c Lactic Acid Calcium 7.4 L* Prot Corrected Calcium 8.1 L Phosphorus Magnesium Total Bilirubin 0.2 Direct Bilirubin Indirect Bilirubin AST 69 H ALT 52 Alkaline Phosphatase 170 H Ammonia Total Creatine Kinase Troponin I C-Reactive Protein B-Natriuretic Peptide Total Protein 5.8 L Albumin 1.0 L Prealbumin Triglycerides Cholesterol LDL Cholesterol HDL Cholesterol Cholesterol/HDL Ratio Thiamine Vitamin B12 Procalcitonin Free T4 TSH 3rd Generation Urine Color Urine Clarity Urine Turbidity Urine pH Ur Specific [place] Urine Protein Urine Glucose (UA) Urine Ketones Urine Occult Blood Urine Nitrate Urine Nitrite Urine Bilirubin Urine Urobilinogen Ur Leukocyte Esterase Urine RBC Urine WBC Urine WBC Clumps Ur Squamous Epith Cells Ur Transition Epith Cell Ur Renal Epithelial Cell Amorphous Sediment Urine Bacteria Hyaline Casts Granular Casts Urine Mucus Micro UA Comment Urine Culture Comments Urine Eosinophils Urine Osmolality Ur Random Creatinine Ur Random Sodium Pleural pH Pleural WBC Pleural Nuc Cells Pleural RBC Pleural Neutrophils Pleural Eosinophils Pleural Lymphocytes Pleural Monocytes Pleural Histocytes Pleural Mesothelial Pleural Total Protein Pleural Amylase Pleural LDH Pleural Glucose Nasal Screen MRSA (PCR) Stl C.difficile Tox PCR St C. diff Tox Epid 027 Vancomycin Trough Random Vancomycin Phenytoin Free Phenytoin LOWELL Screen RPR Blood Type Antibody Screen MTS Gel Crossmatch Blood Bank Comment 02/11/18 02/12/18 02/12/18 18:35 00:16 04:05 WBC RBC Hgb Hct MCV MCH MCHC RDW Plt Count MPV Prelim Diff (Auto) Neut % (Auto) Lymph % (Auto) [place] % (Auto) Eos % (Auto) Baso % (Auto) Neut # (Auto) Lymph # (Auto) [place] # (Auto) Eos # (Auto) Baso # (Auto) CBC Comment WBC Differential Total Counted Neutrophils % (Manual) Seg Neuts % (Manual) Band Neutrophils % Band Neuts % (Manual) Lymphocytes % Lymphocytes % (Manual) Monocytes % Monocytes % (Manual) Eosinophils % Eosinophils % (Manual) Basophils % Metamyelocytes % (Man) Neutrophils # (Manual) Abs Neuts (Manual) Metamyelocytes Myelocytes Nucleated RBCs Differential Comment Smudge Cells Toxic Granulation Toxic Vacuolation Dohle Bodies Platelet Estimate Platelet Morphology Plt Morphology Comment Basophilic Stippling Spherocytes Tear Drop Cells Ovalocytes Acanthocytes (Spur) RBC Morph Comment ESR Hematology Comments PT 29.4 H INR 2.9 APTT Fibrinogen Puncture Site Patient Temperature HCO3 Base Excess O2 Saturation ABG pH ABG pCO2 ABG pO2 ABG HCO3 ABG O2 Content ABG Base Excess ABG Carboxyhemoglobin ABG Methemoglobin Stepan Test Hemoglobin Carboxyhemoglobin O2 Delivery Device Liter Flow Vent Setting Inspired O2 Critical Value Sodium Potassium Chloride Carbon Dioxide Anion Gap BUN Creatinine Estimated GFR POC Glucose 248 H 247 H Random Glucose Hemoglobin A1c Lactic Acid Calcium Prot Corrected Calcium Phosphorus Magnesium Total Bilirubin Direct Bilirubin Indirect Bilirubin AST ALT Alkaline Phosphatase Ammonia Total Creatine Kinase Troponin I C-Reactive Protein B-Natriuretic Peptide Total Protein Albumin Prealbumin Triglycerides Cholesterol LDL Cholesterol HDL Cholesterol Cholesterol/HDL Ratio Thiamine Vitamin B12 Procalcitonin Free T4 TSH 3rd Generation Urine Color Urine Clarity Urine Turbidity Urine pH Ur Specific [place] Urine Protein Urine Glucose (UA) Urine Ketones Urine Occult Blood Urine Nitrate Urine Nitrite Urine Bilirubin Urine Urobilinogen Ur Leukocyte Esterase Urine RBC Urine WBC Urine WBC Clumps Ur Squamous Epith Cells Ur Transition Epith Cell Ur Renal Epithelial Cell Amorphous Sediment Urine Bacteria Hyaline Casts Granular Casts Urine Mucus Micro UA Comment Urine Culture Comments Urine Eosinophils Urine Osmolality Ur Random Creatinine Ur Random Sodium Pleural pH Pleural WBC Pleural Nuc Cells Pleural RBC Pleural Neutrophils Pleural Eosinophils Pleural Lymphocytes Pleural Monocytes Pleural Histocytes Pleural Mesothelial Pleural Total Protein Pleural Amylase Pleural LDH Pleural Glucose Nasal Screen MRSA (PCR) Stl C.difficile Tox PCR St C. diff Tox Epid 027 Vancomycin Trough Random Vancomycin Phenytoin Free Phenytoin LOWELL Screen RPR Blood Type Antibody Screen MTS Gel Crossmatch Blood Bank Comment 02/12/18 02/12/18 02/12/18 04:05 04:05 06:21 WBC 7.1 RBC 2.55 L Hgb 7.1 L Hct 22.0 L MCV 86.3 MCH 27.8 MCHC 32.2 RDW 19.4 H Plt Count 172 MPV 8.7 Prelim Diff (Auto) Neut % (Auto) 65.9 Lymph % (Auto) 22.5 [place] % (Auto) 6.2 Eos % (Auto) 5.2 H Baso % (Auto) 0.2 Neut # (Auto) 4.7 Lymph # (Auto) 1.6 [place] # (Auto) 0.4 Eos # (Auto) 0.4 Baso # (Auto) 0.0 CBC Comment WBC Differential . Total Counted Neutrophils % (Manual) Seg Neuts % (Manual) Band Neutrophils % Band Neuts % (Manual) Lymphocytes % Lymphocytes % (Manual) Monocytes % Monocytes % (Manual) Eosinophils % Eosinophils % (Manual) Basophils % Metamyelocytes % (Man) Neutrophils # (Manual) Abs Neuts (Manual) Metamyelocytes Myelocytes Nucleated RBCs Differential Comment Auto diff final Smudge Cells Toxic Granulation Toxic Vacuolation Dohle Bodies Platelet Estimate Platelet Morphology Plt Morphology Comment Basophilic Stippling Spherocytes Tear Drop Cells Ovalocytes Acanthocytes (Spur) RBC Morph Comment ESR Hematology Comments PT INR APTT Fibrinogen Puncture Site Patient Temperature HCO3 Base Excess O2 Saturation ABG pH ABG pCO2 ABG pO2 ABG HCO3 ABG O2 Content ABG Base Excess ABG Carboxyhemoglobin ABG Methemoglobin Stepan Test Hemoglobin Carboxyhemoglobin O2 Delivery Device Liter Flow Vent Setting Inspired O2 Critical Value Sodium 152 H Potassium 3.8 Chloride 119 H Carbon Dioxide 25.4 Anion Gap 8 BUN 77 H Creatinine 1.40 H Estimated GFR 49 L POC Glucose 265 H Random Glucose 225 H Hemoglobin A1c Lactic Acid Calcium 7.4 L* Prot Corrected Calcium 8.1 L Phosphorus Magnesium Total Bilirubin Direct Bilirubin Indirect Bilirubin AST ALT Alkaline Phosphatase Ammonia Total Creatine Kinase Troponin I C-Reactive Protein B-Natriuretic Peptide Total Protein 5.9 L Albumin Prealbumin Triglycerides Cholesterol LDL Cholesterol HDL Cholesterol Cholesterol/HDL Ratio Thiamine Vitamin B12 Procalcitonin Free T4 TSH 3rd Generation Urine Color Urine Clarity Urine Turbidity Urine pH Ur Specific [place] Urine Protein Urine Glucose (UA) Urine Ketones Urine Occult Blood Urine Nitrate Urine Nitrite Urine Bilirubin Urine Urobilinogen Ur Leukocyte Esterase Urine RBC Urine WBC Urine WBC Clumps Ur Squamous Epith Cells Ur Transition Epith Cell Ur Renal Epithelial Cell Amorphous Sediment Urine Bacteria Hyaline Casts Granular Casts Urine Mucus Micro UA Comment Urine Culture Comments Urine Eosinophils Urine Osmolality Ur Random Creatinine Ur Random Sodium Pleural pH Pleural WBC Pleural Nuc Cells Pleural RBC Pleural Neutrophils Pleural Eosinophils Pleural Lymphocytes Pleural Monocytes Pleural Histocytes Pleural Mesothelial Pleural Total Protein Pleural Amylase Pleural LDH Pleural Glucose Nasal Screen MRSA (PCR) Stl C.difficile Tox PCR St C. diff Tox Epid 027 Vancomycin Trough Random Vancomycin Phenytoin Free Phenytoin LOWELL Screen RPR Blood Type Antibody Screen MTS Gel Crossmatch Blood Bank Comment 02/12/18 02/13/18 02/13/18 22:28 04:29 04:29 WBC RBC Hgb Hct MCV MCH MCHC RDW Plt Count MPV Prelim Diff (Auto) Neut % (Auto) Lymph % (Auto) [place] % (Auto) Eos % (Auto) Baso % (Auto) Neut # (Auto) Lymph # (Auto) [place] # (Auto) Eos # (Auto) Baso # (Auto) CBC Comment WBC Differential Total Counted Neutrophils % (Manual) Seg Neuts % (Manual) Band Neutrophils % Band Neuts % (Manual) Lymphocytes % Lymphocytes % (Manual) Monocytes % Monocytes % (Manual) Eosinophils % Eosinophils % (Manual) Basophils % Metamyelocytes % (Man) Neutrophils # (Manual) Abs Neuts (Manual) Metamyelocytes Myelocytes Nucleated RBCs Differential Comment Smudge Cells Toxic Granulation Toxic Vacuolation Dohle Bodies Platelet Estimate Platelet Morphology Plt Morphology Comment Basophilic Stippling Spherocytes Tear Drop Cells Ovalocytes Acanthocytes (Spur) RBC Morph Comment ESR Hematology Comments PT 22.3 H INR 2.2 APTT Fibrinogen Puncture Site Patient Temperature HCO3 Base Excess O2 Saturation ABG pH ABG pCO2 ABG pO2 ABG HCO3 ABG O2 Content ABG Base Excess ABG Carboxyhemoglobin ABG Methemoglobin Stepan Test Hemoglobin Carboxyhemoglobin O2 Delivery Device Liter Flow Vent Setting Inspired O2 Critical Value Sodium 151 H Potassium 3.9 Chloride 119 H Carbon Dioxide 25.7 Anion Gap 6 BUN 64 H Creatinine 1.31 H Estimated GFR 53 L POC Glucose 314 H Random Glucose 243 H Hemoglobin A1c Lactic Acid Calcium 7.6 L Prot Corrected Calcium Phosphorus Magnesium Total Bilirubin Direct Bilirubin Indirect Bilirubin AST ALT Alkaline Phosphatase Ammonia Total Creatine Kinase Troponin I C-Reactive Protein B-Natriuretic Peptide Total Protein Albumin Prealbumin Triglycerides Cholesterol LDL Cholesterol HDL Cholesterol Cholesterol/HDL Ratio Thiamine Vitamin B12 Procalcitonin Free T4 TSH 3rd Generation Urine Color Urine Clarity Urine Turbidity Urine pH Ur Specific [place] Urine Protein Urine Glucose (UA) Urine Ketones Urine Occult Blood Urine Nitrate Urine Nitrite Urine Bilirubin Urine Urobilinogen Ur Leukocyte Esterase Urine RBC Urine WBC Urine WBC Clumps Ur Squamous Epith Cells Ur Transition Epith Cell Ur Renal Epithelial Cell Amorphous Sediment Urine Bacteria Hyaline Casts Granular Casts Urine Mucus Micro UA Comment Urine Culture Comments Urine Eosinophils Urine Osmolality Ur Random Creatinine Ur Random Sodium Pleural pH Pleural WBC Pleural Nuc Cells Pleural RBC Pleural Neutrophils Pleural Eosinophils Pleural Lymphocytes Pleural Monocytes Pleural Histocytes Pleural Mesothelial Pleural Total Protein Pleural Amylase Pleural LDH Pleural Glucose Nasal Screen MRSA (PCR) Stl C.difficile Tox PCR St C. diff Tox Epid 027 Vancomycin Trough Random Vancomycin Phenytoin Free Phenytoin LOWELL Screen RPR Blood Type Antibody Screen MTS Gel Crossmatch Blood Bank Comment 02/13/18 02/13/18 02/13/18 04:56 06:35 11:37 WBC 6.1 RBC 2.71 L Hgb 7.2 L Hct 23.4 L MCV 86.5 MCH 26.7 L MCHC 30.9 L RDW 20.1 H Plt Count 182 MPV 9.3 Prelim Diff (Auto) Manual diff required Neut % (Auto) Lymph % (Auto) [place] % (Auto) Eos % (Auto) Baso % (Auto) Neut # (Auto) Lymph # (Auto) [place] # (Auto) Eos # (Auto) Baso # (Auto) CBC Comment WBC Differential Manual diff final Total Counted Neutrophils % (Manual) Seg Neuts % (Manual) 73 H Band Neutrophils % Band Neuts % (Manual) 2 Lymphocytes % Lymphocytes % (Manual) 11 Monocytes % Monocytes % (Manual) 10 H Eosinophils % Eosinophils % (Manual) 4 Basophils % Metamyelocytes % (Man) Neutrophils # (Manual) Abs Neuts (Manual) 4.6 Metamyelocytes Myelocytes Nucleated RBCs Differential Comment . Smudge Cells Toxic Granulation Toxic Vacuolation Dohle Bodies Platelet Estimate Normal Platelet Morphology Normal Plt Morphology Comment Basophilic Stippling Spherocytes Tear Drop Cells Ovalocytes Acanthocytes (Spur) RBC Morph Comment ESR Hematology Comments PT INR APTT Fibrinogen Puncture Site Patient Temperature HCO3 Base Excess O2 Saturation ABG pH ABG pCO2 ABG pO2 ABG HCO3 ABG O2 Content ABG Base Excess ABG Carboxyhemoglobin ABG Methemoglobin Stepan Test Hemoglobin Carboxyhemoglobin O2 Delivery Device Liter Flow Vent Setting Inspired O2 Critical Value Sodium Potassium Chloride Carbon Dioxide Anion Gap BUN Creatinine Estimated GFR POC Glucose 260 H 285 H Random Glucose Hemoglobin A1c Lactic Acid Calcium Prot Corrected Calcium Phosphorus Magnesium Total Bilirubin Direct Bilirubin Indirect Bilirubin AST ALT Alkaline Phosphatase Ammonia Total Creatine Kinase Troponin I C-Reactive Protein B-Natriuretic Peptide Total Protein Albumin Prealbumin Triglycerides Cholesterol LDL Cholesterol HDL Cholesterol Cholesterol/HDL Ratio Thiamine Vitamin B12 Procalcitonin Free T4 TSH 3rd Generation Urine Color Urine Clarity Urine Turbidity Urine pH Ur Specific [place] Urine Protein Urine Glucose (UA) Urine Ketones Urine Occult Blood Urine Nitrate Urine Nitrite Urine Bilirubin Urine Urobilinogen Ur Leukocyte Esterase Urine RBC Urine WBC Urine WBC Clumps Ur Squamous Epith Cells Ur Transition Epith Cell Ur Renal Epithelial Cell Amorphous Sediment Urine Bacteria Hyaline Casts Granular Casts Urine Mucus Micro UA Comment Urine Culture Comments Urine Eosinophils Urine Osmolality Ur Random Creatinine Ur Random Sodium Pleural pH Pleural WBC Pleural Nuc Cells Pleural RBC Pleural Neutrophils Pleural Eosinophils Pleural Lymphocytes Pleural Monocytes Pleural Histocytes Pleural Mesothelial Pleural Total Protein Pleural Amylase Pleural LDH Pleural Glucose Nasal Screen MRSA (PCR) Stl C.difficile Tox PCR St C. diff Tox Epid 027 Vancomycin Trough Random Vancomycin Phenytoin Free Phenytoin LOWELL Screen RPR Blood Type Antibody Screen MTS Gel Crossmatch Blood Bank Comment 02/13/18 02/13/18 02/14/18 18:16 22:49 03:40 WBC 6.5 RBC 2.75 L Hgb 7.4 L Hct 23.7 L MCV 86.1 MCH 27.0 MCHC 31.3 L RDW 20.0 H Plt Count 175 MPV 9.3 Prelim Diff (Auto) Manual diff required Neut % (Auto) Lymph % (Auto) [place] % (Auto) Eos % (Auto) Baso % (Auto) Neut # (Auto) Lymph # (Auto) [place] # (Auto) Eos # (Auto) Baso # (Auto) CBC Comment WBC Differential Manual diff final Total Counted Neutrophils % (Manual) Seg Neuts % (Manual) 60 Band Neutrophils % Band Neuts % (Manual) Lymphocytes % Lymphocytes % (Manual) 27 Monocytes % Monocytes % (Manual) 7 Eosinophils % Eosinophils % (Manual) 6 H Basophils % Metamyelocytes % (Man) Neutrophils # (Manual) Abs Neuts (Manual) 3.9 Metamyelocytes Myelocytes Nucleated RBCs Differential Comment . Smudge Cells Toxic Granulation Toxic Vacuolation Dohle Bodies Platelet Estimate Normal Platelet Morphology Normal Plt Morphology Comment Basophilic Stippling Spherocytes Tear Drop Cells Ovalocytes Acanthocytes (Spur) RBC Morph Comment ESR Hematology Comments PT INR APTT Fibrinogen Puncture Site Patient Temperature HCO3 Base Excess O2 Saturation ABG pH ABG pCO2 ABG pO2 ABG HCO3 ABG O2 Content ABG Base Excess ABG Carboxyhemoglobin ABG Methemoglobin Stepan Test Hemoglobin Carboxyhemoglobin O2 Delivery Device Liter Flow Vent Setting Inspired O2 Critical Value Sodium Potassium Chloride Carbon Dioxide Anion Gap BUN Creatinine Estimated GFR POC Glucose 287 H 229 H Random Glucose Hemoglobin A1c Lactic Acid Calcium Prot Corrected Calcium Phosphorus Magnesium Total Bilirubin Direct Bilirubin Indirect Bilirubin AST ALT Alkaline Phosphatase Ammonia Total Creatine Kinase Troponin I C-Reactive Protein B-Natriuretic Peptide Total Protein Albumin Prealbumin Triglycerides Cholesterol LDL Cholesterol HDL Cholesterol Cholesterol/HDL Ratio Thiamine Vitamin B12 Procalcitonin Free T4 TSH 3rd Generation Urine Color Urine Clarity Urine Turbidity Urine pH Ur Specific [place] Urine Protein Urine Glucose (UA) Urine Ketones Urine Occult Blood Urine Nitrate Urine Nitrite Urine Bilirubin Urine Urobilinogen Ur Leukocyte Esterase Urine RBC Urine WBC Urine WBC Clumps Ur Squamous Epith Cells Ur Transition Epith Cell Ur Renal Epithelial Cell Amorphous Sediment Urine Bacteria Hyaline Casts Granular Casts Urine Mucus Micro UA Comment Urine Culture Comments Urine Eosinophils Urine Osmolality Ur Random Creatinine Ur Random Sodium Pleural pH Pleural WBC Pleural Nuc Cells Pleural RBC Pleural Neutrophils Pleural Eosinophils Pleural Lymphocytes Pleural Monocytes Pleural Histocytes Pleural Mesothelial Pleural Total Protein Pleural Amylase Pleural LDH Pleural Glucose Nasal Screen MRSA (PCR) Stl C.difficile Tox PCR St C. diff Tox Epid 027 Vancomycin Trough Random Vancomycin Phenytoin Free Phenytoin LOWELL Screen RPR Blood Type Antibody Screen MTS Gel Crossmatch Blood Bank Comment 02/14/18 02/14/18 02/14/18 03:40 03:40 05:38 WBC RBC Hgb Hct MCV MCH MCHC RDW Plt Count MPV Prelim Diff (Auto) Neut % (Auto) Lymph % (Auto) [place] % (Auto) Eos % (Auto) Baso % (Auto) Neut # (Auto) Lymph # (Auto) [place] # (Auto) Eos # (Auto) Baso # (Auto) CBC Comment WBC Differential Total Counted Neutrophils % (Manual) Seg Neuts % (Manual) Band Neutrophils % Band Neuts % (Manual) Lymphocytes % Lymphocytes % (Manual) Monocytes % Monocytes % (Manual) Eosinophils % Eosinophils % (Manual) Basophils % Metamyelocytes % (Man) Neutrophils # (Manual) Abs Neuts (Manual) Metamyelocytes Myelocytes Nucleated RBCs Differential Comment Smudge Cells Toxic Granulation Toxic Vacuolation Dohle Bodies Platelet Estimate Platelet Morphology Plt Morphology Comment Basophilic Stippling Spherocytes Tear Drop Cells Ovalocytes Acanthocytes (Spur) RBC Morph Comment ESR Hematology Comments PT 21.3 H INR 2.1 APTT Fibrinogen Puncture Site Patient Temperature HCO3 Base Excess O2 Saturation ABG pH ABG pCO2 ABG pO2 ABG HCO3 ABG O2 Content ABG Base Excess ABG Carboxyhemoglobin ABG Methemoglobin Stepan Test Hemoglobin Carboxyhemoglobin O2 Delivery Device Liter Flow Vent Setting Inspired O2 Critical Value Sodium 149 H Potassium 4.0 Chloride 117 H Carbon Dioxide 24.9 Anion Gap 7 BUN 66 H Creatinine 1.20 Estimated GFR 59 L POC Glucose 233 H Random Glucose 223 H Hemoglobin A1c Lactic Acid Calcium 7.3 L* Prot Corrected Calcium 7.9 L Phosphorus Magnesium Total Bilirubin Direct Bilirubin Indirect Bilirubin AST ALT Alkaline Phosphatase Ammonia Total Creatine Kinase Troponin I C-Reactive Protein B-Natriuretic Peptide Total Protein 6.0 L Albumin Prealbumin Triglycerides Cholesterol LDL Cholesterol HDL Cholesterol Cholesterol/HDL Ratio Thiamine Vitamin B12 Procalcitonin Free T4 TSH 3rd Generation Urine Color Urine Clarity Urine Turbidity Urine pH Ur Specific [place] Urine Protein Urine Glucose (UA) Urine Ketones Urine Occult Blood Urine Nitrate Urine Nitrite Urine Bilirubin Urine Urobilinogen Ur Leukocyte Esterase Urine RBC Urine WBC Urine WBC Clumps Ur Squamous Epith Cells Ur Transition Epith Cell Ur Renal Epithelial Cell Amorphous Sediment Urine Bacteria Hyaline Casts Granular Casts Urine Mucus Micro UA Comment Urine Culture Comments Urine Eosinophils Urine Osmolality Ur Random Creatinine Ur Random Sodium Pleural pH Pleural WBC Pleural Nuc Cells Pleural RBC Pleural Neutrophils Pleural Eosinophils Pleural Lymphocytes Pleural Monocytes Pleural Histocytes Pleural Mesothelial Pleural Total Protein Pleural Amylase Pleural LDH Pleural Glucose Nasal Screen MRSA (PCR) Stl C.difficile Tox PCR St C. diff Tox Epid 027 Vancomycin Trough Random Vancomycin Phenytoin Free Phenytoin LOWELL Screen RPR Blood Type Antibody Screen MTS Gel Crossmatch Blood Bank Comment 02/14/18 02/14/18 02/15/18 11:36 17:36 00:12 WBC RBC Hgb Hct MCV MCH MCHC RDW Plt Count MPV Prelim Diff (Auto) Neut % (Auto) Lymph % (Auto) [place] % (Auto) Eos % (Auto) Baso % (Auto) Neut # (Auto) Lymph # (Auto) [place] # (Auto) Eos # (Auto) Baso # (Auto) CBC Comment WBC Differential Total Counted Neutrophils % (Manual) Seg Neuts % (Manual) Band Neutrophils % Band Neuts % (Manual) Lymphocytes % Lymphocytes % (Manual) Monocytes % Monocytes % (Manual) Eosinophils % Eosinophils % (Manual) Basophils % Metamyelocytes % (Man) Neutrophils # (Manual) Abs Neuts (Manual) Metamyelocytes Myelocytes Nucleated RBCs Differential Comment Smudge Cells Toxic Granulation Toxic Vacuolation Dohle Bodies Platelet Estimate Platelet Morphology Plt Morphology Comment Basophilic Stippling Spherocytes Tear Drop Cells Ovalocytes Acanthocytes (Spur) RBC Morph Comment ESR Hematology Comments PT INR APTT Fibrinogen Puncture Site Patient Temperature HCO3 Base Excess O2 Saturation ABG pH ABG pCO2 ABG pO2 ABG HCO3 ABG O2 Content ABG Base Excess ABG Carboxyhemoglobin ABG Methemoglobin Stepan Test Hemoglobin Carboxyhemoglobin O2 Delivery Device Liter Flow Vent Setting Inspired O2 Critical Value Sodium Potassium Chloride Carbon Dioxide Anion Gap BUN Creatinine Estimated GFR POC Glucose 215 H 130 H 95 Random Glucose Hemoglobin A1c Lactic Acid Calcium Prot Corrected Calcium Phosphorus Magnesium Total Bilirubin Direct Bilirubin Indirect Bilirubin AST ALT Alkaline Phosphatase Ammonia Total Creatine Kinase Troponin I C-Reactive Protein B-Natriuretic Peptide Total Protein Albumin Prealbumin Triglycerides Cholesterol LDL Cholesterol HDL Cholesterol Cholesterol/HDL Ratio Thiamine Vitamin B12 Procalcitonin Free T4 TSH 3rd Generation Urine Color Urine Clarity Urine Turbidity Urine pH Ur Specific [place] Urine Protein Urine Glucose (UA) Urine Ketones Urine Occult Blood Urine Nitrate Urine Nitrite Urine Bilirubin Urine Urobilinogen Ur Leukocyte Esterase Urine RBC Urine WBC Urine WBC Clumps Ur Squamous Epith Cells Ur Transition Epith Cell Ur Renal Epithelial Cell Amorphous Sediment Urine Bacteria Hyaline Casts Granular Casts Urine Mucus Micro UA Comment Urine Culture Comments Urine Eosinophils Urine Osmolality Ur Random Creatinine Ur Random Sodium Pleural pH Pleural WBC Pleural Nuc Cells Pleural RBC Pleural Neutrophils Pleural Eosinophils Pleural Lymphocytes Pleural Monocytes Pleural Histocytes Pleural Mesothelial Pleural Total Protein Pleural Amylase Pleural LDH Pleural Glucose Nasal Screen MRSA (PCR) Stl C.difficile Tox PCR St C. diff Tox Epid 027 Vancomycin Trough Random Vancomycin Phenytoin Free Phenytoin LOWELL Screen RPR Blood Type Antibody Screen MTS Gel Crossmatch Blood Bank Comment 02/15/18 02/15/18 02/15/18 04:40 04:40 04:40 WBC 9.3 RBC 2.87 L Hgb 7.8 L Hct 24.3 L MCV 84.5 MCH 27.2 MCHC 32.2 RDW 19.8 H Plt Count 175 MPV 8.9 Prelim Diff (Auto) Neut % (Auto) 56.1 Lymph % (Auto) 30.2 [place] % (Auto) 10.3 H Eos % (Auto) 3.3 Baso % (Auto) 0.1 Neut # (Auto) 5.2 Lymph # (Auto) 2.8 [place] # (Auto) 1.0 H Eos # (Auto) 0.3 Baso # (Auto) 0.0 CBC Comment WBC Differential . Total Counted Neutrophils % (Manual) Seg Neuts % (Manual) Band Neutrophils % Band Neuts % (Manual) Lymphocytes % Lymphocytes % (Manual) Monocytes % Monocytes % (Manual) Eosinophils % Eosinophils % (Manual) Basophils % Metamyelocytes % (Man) Neutrophils # (Manual) Abs Neuts (Manual) Metamyelocytes Myelocytes Nucleated RBCs Differential Comment Auto diff final Smudge Cells Toxic Granulation Toxic Vacuolation Dohle Bodies Platelet Estimate Platelet Morphology Plt Morphology Comment Basophilic Stippling Spherocytes Tear Drop Cells Ovalocytes Acanthocytes (Spur) RBC Morph Comment ESR Hematology Comments PT 18.8 H INR 1.9 APTT Fibrinogen Puncture Site Patient Temperature HCO3 Base Excess O2 Saturation ABG pH ABG pCO2 ABG pO2 ABG HCO3 ABG O2 Content ABG Base Excess ABG Carboxyhemoglobin ABG Methemoglobin Stepan Test Hemoglobin Carboxyhemoglobin O2 Delivery Device Liter Flow Vent Setting Inspired O2 Critical Value Sodium 149 H Potassium 4.6 Chloride 119 H Carbon Dioxide 25.4 Anion Gap 5 BUN 68 H Creatinine 1.16 Estimated GFR 61 L POC Glucose Random Glucose 119 H D Hemoglobin A1c Lactic Acid Calcium 7.6 L Prot Corrected Calcium Phosphorus Magnesium Total Bilirubin Direct Bilirubin Indirect Bilirubin AST ALT Alkaline Phosphatase Ammonia Total Creatine Kinase Troponin I C-Reactive Protein B-Natriuretic Peptide Total Protein Albumin Prealbumin 10 L Triglycerides Cholesterol LDL Cholesterol HDL Cholesterol Cholesterol/HDL Ratio Thiamine Vitamin B12 Procalcitonin Free T4 TSH 3rd Generation Urine Color Urine Clarity Urine Turbidity Urine pH Ur Specific [place] Urine Protein Urine Glucose (UA) Urine Ketones Urine Occult Blood Urine Nitrate Urine Nitrite Urine Bilirubin Urine Urobilinogen Ur Leukocyte Esterase Urine RBC Urine WBC Urine WBC Clumps Ur Squamous Epith Cells Ur Transition Epith Cell Ur Renal Epithelial Cell Amorphous Sediment Urine Bacteria Hyaline Casts Granular Casts Urine Mucus Micro UA Comment Urine Culture Comments Urine Eosinophils Urine Osmolality Ur Random Creatinine Ur Random Sodium Pleural pH Pleural WBC Pleural Nuc Cells Pleural RBC Pleural Neutrophils Pleural Eosinophils Pleural Lymphocytes Pleural Monocytes Pleural Histocytes Pleural Mesothelial Pleural Total Protein Pleural Amylase Pleural LDH Pleural Glucose Nasal Screen MRSA (PCR) Stl C.difficile Tox PCR St C. diff Tox Epid 027 Vancomycin Trough Random Vancomycin Phenytoin Free Phenytoin LOWELL Screen RPR Blood Type Antibody Screen MTS Gel Crossmatch Blood Bank Comment 02/15/18 02/15/18 02/16/18 12:05 16:41 04:55 WBC RBC Hgb Hct MCV MCH MCHC RDW Plt Count MPV Prelim Diff (Auto) Neut % (Auto) Lymph % (Auto) [place] % (Auto) Eos % (Auto) Baso % (Auto) Neut # (Auto) Lymph # (Auto) [place] # (Auto) Eos # (Auto) Baso # (Auto) CBC Comment WBC Differential Total Counted Neutrophils % (Manual) Seg Neuts % (Manual) Band Neutrophils % Band Neuts % (Manual) Lymphocytes % Lymphocytes % (Manual) Monocytes % Monocytes % (Manual) Eosinophils % Eosinophils % (Manual) Basophils % Metamyelocytes % (Man) Neutrophils # (Manual) Abs Neuts (Manual) Metamyelocytes Myelocytes Nucleated RBCs Differential Comment Smudge Cells Toxic Granulation Toxic Vacuolation Dohle Bodies Platelet Estimate Platelet Morphology Plt Morphology Comment Basophilic Stippling Spherocytes Tear Drop Cells Ovalocytes Acanthocytes (Spur) RBC Morph Comment ESR Hematology Comments PT INR APTT Fibrinogen Puncture Site Patient Temperature HCO3 Base Excess O2 Saturation ABG pH ABG pCO2 ABG pO2 ABG HCO3 ABG O2 Content ABG Base Excess ABG Carboxyhemoglobin ABG Methemoglobin Stepan Test Hemoglobin Carboxyhemoglobin O2 Delivery Device Liter Flow Vent Setting Inspired O2 Critical Value Sodium 150 H Potassium 4.0 Chloride 116 H Carbon Dioxide 24.0 Anion Gap 10 BUN 75 H Creatinine 1.25 Estimated GFR 56 L POC Glucose 194 H 196 H Random Glucose 245 H D Hemoglobin A1c Lactic Acid Calcium 7.4 L* Prot Corrected Calcium 8.2 L Phosphorus Magnesium Total Bilirubin Direct Bilirubin Indirect Bilirubin AST ALT Alkaline Phosphatase Ammonia Total Creatine Kinase Troponin I C-Reactive Protein B-Natriuretic Peptide Total Protein 5.7 L Albumin Prealbumin Triglycerides Cholesterol LDL Cholesterol HDL Cholesterol Cholesterol/HDL Ratio Thiamine Vitamin B12 Procalcitonin Free T4 TSH 3rd Generation Urine Color Urine Clarity Urine Turbidity Urine pH Ur Specific [place] Urine Protein Urine Glucose (UA) Urine Ketones Urine Occult Blood Urine Nitrate Urine Nitrite Urine Bilirubin Urine Urobilinogen Ur Leukocyte Esterase Urine RBC Urine WBC Urine WBC Clumps Ur Squamous Epith Cells Ur Transition Epith Cell Ur Renal Epithelial Cell Amorphous Sediment Urine Bacteria Hyaline Casts Granular Casts Urine Mucus Micro UA Comment Urine Culture Comments Urine Eosinophils Urine Osmolality Ur Random Creatinine Ur Random Sodium Pleural pH Pleural WBC Pleural Nuc Cells Pleural RBC Pleural Neutrophils Pleural Eosinophils Pleural Lymphocytes Pleural Monocytes Pleural Histocytes Pleural Mesothelial Pleural Total Protein Pleural Amylase Pleural LDH Pleural Glucose Nasal Screen MRSA (PCR) Stl C.difficile Tox PCR St C. diff Tox Epid 027 Vancomycin Trough Random Vancomycin Phenytoin Free Phenytoin LOWELL Screen RPR Blood Type Antibody Screen MTS Gel Crossmatch Blood Bank Comment 02/16/18 02/16/18 02/16/18 04:55 11:22 17:05 WBC RBC Hgb Hct MCV MCH MCHC RDW Plt Count MPV Prelim Diff (Auto) Neut % (Auto) Lymph % (Auto) [place] % (Auto) Eos % (Auto) Baso % (Auto) Neut # (Auto) Lymph # (Auto) [place] # (Auto) Eos # (Auto) Baso # (Auto) CBC Comment WBC Differential Total Counted Neutrophils % (Manual) Seg Neuts % (Manual) Band Neutrophils % Band Neuts % (Manual) Lymphocytes % Lymphocytes % (Manual) Monocytes % Monocytes % (Manual) Eosinophils % Eosinophils % (Manual) Basophils % Metamyelocytes % (Man) Neutrophils # (Manual) Abs Neuts (Manual) Metamyelocytes Myelocytes Nucleated RBCs Differential Comment Smudge Cells Toxic Granulation Toxic Vacuolation Dohle Bodies Platelet Estimate Platelet Morphology Plt Morphology Comment Basophilic Stippling Spherocytes Tear Drop Cells Ovalocytes Acanthocytes (Spur) RBC Morph Comment ESR Hematology Comments PT 23.1 H INR 2.3 APTT Fibrinogen Puncture Site Patient Temperature HCO3 Base Excess O2 Saturation ABG pH ABG pCO2 ABG pO2 ABG HCO3 ABG O2 Content ABG Base Excess ABG Carboxyhemoglobin ABG Methemoglobin Stepan Test Hemoglobin Carboxyhemoglobin O2 Delivery Device Liter Flow Vent Setting Inspired O2 Critical Value Sodium Potassium Chloride Carbon Dioxide Anion Gap BUN Creatinine Estimated GFR POC Glucose 238 H 182 H Random Glucose Hemoglobin A1c Lactic Acid Calcium Prot Corrected Calcium Phosphorus Magnesium Total Bilirubin Direct Bilirubin Indirect Bilirubin AST ALT Alkaline Phosphatase Ammonia Total Creatine Kinase Troponin I C-Reactive Protein B-Natriuretic Peptide Total Protein Albumin Prealbumin Triglycerides Cholesterol LDL Cholesterol HDL Cholesterol Cholesterol/HDL Ratio Thiamine Vitamin B12 Procalcitonin Free T4 TSH 3rd Generation Urine Color Urine Clarity Urine Turbidity Urine pH Ur Specific [place] Urine Protein Urine Glucose (UA) Urine Ketones Urine Occult Blood Urine Nitrate Urine Nitrite Urine Bilirubin Urine Urobilinogen Ur Leukocyte Esterase Urine RBC Urine WBC Urine WBC Clumps Ur Squamous Epith Cells Ur Transition Epith Cell Ur Renal Epithelial Cell Amorphous Sediment Urine Bacteria Hyaline Casts Granular Casts Urine Mucus Micro UA Comment Urine Culture Comments Urine Eosinophils Urine Osmolality Ur Random Creatinine Ur Random Sodium Pleural pH Pleural WBC Pleural Nuc Cells Pleural RBC Pleural Neutrophils Pleural Eosinophils Pleural Lymphocytes Pleural Monocytes Pleural Histocytes Pleural Mesothelial Pleural Total Protein Pleural Amylase Pleural LDH Pleural Glucose Nasal Screen MRSA (PCR) Stl C.difficile Tox PCR St C. diff Tox Epid 027 Vancomycin Trough Random Vancomycin Phenytoin Free Phenytoin LOWELL Screen RPR Blood Type Antibody Screen MTS Gel Crossmatch Blood Bank Comment 02/16/18 02/16/18 02/17/18 22:21 23:45 00:07 WBC RBC Hgb Hct MCV MCH MCHC RDW Plt Count MPV Prelim Diff (Auto) Neut % (Auto) Lymph % (Auto) [place] % (Auto) Eos % (Auto) Baso % (Auto) Neut # (Auto) Lymph # (Auto) [place] # (Auto) Eos # (Auto) Baso # (Auto) CBC Comment WBC Differential Total Counted Neutrophils % (Manual) Seg Neuts % (Manual) Band Neutrophils % Band Neuts % (Manual) Lymphocytes % Lymphocytes % (Manual) Monocytes % Monocytes % (Manual) Eosinophils % Eosinophils % (Manual) Basophils % Metamyelocytes % (Man) Neutrophils # (Manual) Abs Neuts (Manual) Metamyelocytes Myelocytes Nucleated RBCs Differential Comment Smudge Cells Toxic Granulation Toxic Vacuolation Dohle Bodies Platelet Estimate Platelet Morphology Plt Morphology Comment Basophilic Stippling Spherocytes Tear Drop Cells Ovalocytes Acanthocytes (Spur) RBC Morph Comment ESR Hematology Comments PT INR APTT Fibrinogen Puncture Site Patient Temperature HCO3 Base Excess O2 Saturation ABG pH ABG pCO2 ABG pO2 ABG HCO3 ABG O2 Content ABG Base Excess ABG Carboxyhemoglobin ABG Methemoglobin Stepan Test Hemoglobin Carboxyhemoglobin O2 Delivery Device Liter Flow Vent Setting Inspired O2 Critical Value Sodium Potassium 3.7 Chloride Carbon Dioxide Anion Gap BUN Creatinine Estimated GFR POC Glucose 110 103 Random Glucose Hemoglobin A1c Lactic Acid Calcium Prot Corrected Calcium Phosphorus Magnesium 1.9 Total Bilirubin Direct Bilirubin Indirect Bilirubin AST ALT Alkaline Phosphatase Ammonia Total Creatine Kinase Troponin I C-Reactive Protein B-Natriuretic Peptide Total Protein Albumin Prealbumin Triglycerides Cholesterol LDL Cholesterol HDL Cholesterol Cholesterol/HDL Ratio Thiamine Vitamin B12 Procalcitonin Free T4 TSH 3rd Generation Urine Color Urine Clarity Urine Turbidity Urine pH Ur Specific [place] Urine Protein Urine Glucose (UA) Urine Ketones Urine Occult Blood Urine Nitrate Urine Nitrite Urine Bilirubin Urine Urobilinogen Ur Leukocyte Esterase Urine RBC Urine WBC Urine WBC Clumps Ur Squamous Epith Cells Ur Transition Epith Cell Ur Renal Epithelial Cell Amorphous Sediment Urine Bacteria Hyaline Casts Granular Casts Urine Mucus Micro UA Comment Urine Culture Comments Urine Eosinophils Urine Osmolality Ur Random Creatinine Ur Random Sodium Pleural pH Pleural WBC Pleural Nuc Cells Pleural RBC Pleural Neutrophils Pleural Eosinophils Pleural Lymphocytes Pleural Monocytes Pleural Histocytes Pleural Mesothelial Pleural Total Protein Pleural Amylase Pleural LDH Pleural Glucose Nasal Screen MRSA (PCR) Stl C.difficile Tox PCR St C. diff Tox Epid 027 Vancomycin Trough Random Vancomycin Phenytoin Free Phenytoin LOWELL Screen RPR Blood Type Antibody Screen MTS Gel Crossmatch Blood Bank Comment 02/17/18 02/17/18 02/17/18 04:00 05:49 11:53 WBC RBC Hgb Hct MCV MCH MCHC RDW Plt Count MPV Prelim Diff (Auto) Neut % (Auto) Lymph % (Auto) [place] % (Auto) Eos % (Auto) Baso % (Auto) Neut # (Auto) Lymph # (Auto) [place] # (Auto) Eos # (Auto) Baso # (Auto) CBC Comment WBC Differential Total Counted Neutrophils % (Manual) Seg Neuts % (Manual) Band Neutrophils % Band Neuts % (Manual) Lymphocytes % Lymphocytes % (Manual) Monocytes % Monocytes % (Manual) Eosinophils % Eosinophils % (Manual) Basophils % Metamyelocytes % (Man) Neutrophils # (Manual) Abs Neuts (Manual) Metamyelocytes Myelocytes Nucleated RBCs Differential Comment Smudge Cells Toxic Granulation Toxic Vacuolation Dohle Bodies Platelet Estimate Platelet Morphology Plt Morphology Comment Basophilic Stippling Spherocytes Tear Drop Cells Ovalocytes Acanthocytes (Spur) RBC Morph Comment ESR Hematology Comments PT 30.6 H INR 3.0 APTT Fibrinogen Puncture Site Patient Temperature HCO3 Base Excess O2 Saturation ABG pH ABG pCO2 ABG pO2 ABG HCO3 ABG O2 Content ABG Base Excess ABG Carboxyhemoglobin ABG Methemoglobin Stepan Test Hemoglobin Carboxyhemoglobin O2 Delivery Device Liter Flow Vent Setting Inspired O2 Critical Value Sodium Potassium Chloride Carbon Dioxide Anion Gap BUN Creatinine Estimated GFR POC Glucose 136 H 145 H Random Glucose Hemoglobin A1c Lactic Acid Calcium Prot Corrected Calcium Phosphorus Magnesium Total Bilirubin Direct Bilirubin Indirect Bilirubin AST ALT Alkaline Phosphatase Ammonia Total Creatine Kinase Troponin I C-Reactive Protein B-Natriuretic Peptide Total Protein Albumin Prealbumin Triglycerides Cholesterol LDL Cholesterol HDL Cholesterol Cholesterol/HDL Ratio Thiamine Vitamin B12 Procalcitonin Free T4 TSH 3rd Generation Urine Color Urine Clarity Urine Turbidity Urine pH Ur Specific [place] Urine Protein Urine Glucose (UA) Urine Ketones Urine Occult Blood Urine Nitrate Urine Nitrite Urine Bilirubin Urine Urobilinogen Ur Leukocyte Esterase Urine RBC Urine WBC Urine WBC Clumps Ur Squamous Epith Cells Ur Transition Epith Cell Ur Renal Epithelial Cell Amorphous Sediment Urine Bacteria Hyaline Casts Granular Casts Urine Mucus Micro UA Comment Urine Culture Comments Urine Eosinophils Urine Osmolality Ur Random Creatinine Ur Random Sodium Pleural pH Pleural WBC Pleural Nuc Cells Pleural RBC Pleural Neutrophils Pleural Eosinophils Pleural Lymphocytes Pleural Monocytes Pleural Histocytes Pleural Mesothelial Pleural Total Protein Pleural Amylase Pleural LDH Pleural Glucose Nasal Screen MRSA (PCR) Stl C.difficile Tox PCR St C. diff Tox Epid 027 Vancomycin Trough Random Vancomycin Phenytoin Free Phenytoin LOWELL Screen RPR Blood Type Antibody Screen MTS Gel Crossmatch Blood Bank Comment 02/17/18 02/18/18 02/18/18 17:58 00:16 05:05 WBC RBC Hgb Hct MCV MCH MCHC RDW Plt Count MPV Prelim Diff (Auto) Neut % (Auto) Lymph % (Auto) [place] % (Auto) Eos % (Auto) Baso % (Auto) Neut # (Auto) Lymph # (Auto) [place] # (Auto) Eos # (Auto) Baso # (Auto) CBC Comment WBC Differential Total Counted Neutrophils % (Manual) Seg Neuts % (Manual) Band Neutrophils % Band Neuts % (Manual) Lymphocytes % Lymphocytes % (Manual) Monocytes % Monocytes % (Manual) Eosinophils % Eosinophils % (Manual) Basophils % Metamyelocytes % (Man) Neutrophils # (Manual) Abs Neuts (Manual) Metamyelocytes Myelocytes Nucleated RBCs Differential Comment Smudge Cells Toxic Granulation Toxic Vacuolation Dohle Bodies Platelet Estimate Platelet Morphology Plt Morphology Comment Basophilic Stippling Spherocytes Tear Drop Cells Ovalocytes Acanthocytes (Spur) RBC Morph Comment ESR Hematology Comments PT 35.0 H INR 3.5 APTT Fibrinogen Puncture Site Patient Temperature HCO3 Base Excess O2 Saturation ABG pH ABG pCO2 ABG pO2 ABG HCO3 ABG O2 Content ABG Base Excess ABG Carboxyhemoglobin ABG Methemoglobin Stepan Test Hemoglobin Carboxyhemoglobin O2 Delivery Device Liter Flow Vent Setting Inspired O2 Critical Value Sodium Potassium Chloride Carbon Dioxide Anion Gap BUN Creatinine Estimated GFR POC Glucose 218 H 237 H Random Glucose Hemoglobin A1c Lactic Acid Calcium Prot Corrected Calcium Phosphorus Magnesium Total Bilirubin Direct Bilirubin Indirect Bilirubin AST ALT Alkaline Phosphatase Ammonia Total Creatine Kinase Troponin I C-Reactive Protein B-Natriuretic Peptide Total Protein Albumin Prealbumin Triglycerides Cholesterol LDL Cholesterol HDL Cholesterol Cholesterol/HDL Ratio Thiamine Vitamin B12 Procalcitonin Free T4 TSH 3rd Generation Urine Color Urine Clarity Urine Turbidity Urine pH Ur Specific [place] Urine Protein Urine Glucose (UA) Urine Ketones Urine Occult Blood Urine Nitrate Urine Nitrite Urine Bilirubin Urine Urobilinogen Ur Leukocyte Esterase Urine RBC Urine WBC Urine WBC Clumps Ur Squamous Epith Cells Ur Transition Epith Cell Ur Renal Epithelial Cell Amorphous Sediment Urine Bacteria Hyaline Casts Granular Casts Urine Mucus Micro UA Comment Urine Culture Comments Urine Eosinophils Urine Osmolality Ur Random Creatinine Ur Random Sodium Pleural pH Pleural WBC Pleural Nuc Cells Pleural RBC Pleural Neutrophils Pleural Eosinophils Pleural Lymphocytes Pleural Monocytes Pleural Histocytes Pleural Mesothelial Pleural Total Protein Pleural Amylase Pleural LDH Pleural Glucose Nasal Screen MRSA (PCR) Stl C.difficile Tox PCR St C. diff Tox Epid 027 Vancomycin Trough Random Vancomycin Phenytoin Free Phenytoin LOWELL Screen RPR Blood Type Antibody Screen MTS Gel Crossmatch Blood Bank Comment 02/18/18 02/18/18 02/18/18 05:22 12:04 18:30 WBC RBC Hgb Hct MCV MCH MCHC RDW Plt Count MPV Prelim Diff (Auto) Neut % (Auto) Lymph % (Auto) [place] % (Auto) Eos % (Auto) Baso % (Auto) Neut # (Auto) Lymph # (Auto) [place] # (Auto) Eos # (Auto) Baso # (Auto) CBC Comment WBC Differential Total Counted Neutrophils % (Manual) Seg Neuts % (Manual) Band Neutrophils % Band Neuts % (Manual) Lymphocytes % Lymphocytes % (Manual) Monocytes % Monocytes % (Manual) Eosinophils % Eosinophils % (Manual) Basophils % Metamyelocytes % (Man) Neutrophils # (Manual) Abs Neuts (Manual) Metamyelocytes Myelocytes Nucleated RBCs Differential Comment Smudge Cells Toxic Granulation Toxic Vacuolation Dohle Bodies Platelet Estimate Platelet Morphology Plt Morphology Comment Basophilic Stippling Spherocytes Tear Drop Cells Ovalocytes Acanthocytes (Spur) RBC Morph Comment ESR Hematology Comments PT INR APTT Fibrinogen Puncture Site Patient Temperature HCO3 Base Excess O2 Saturation ABG pH ABG pCO2 ABG pO2 ABG HCO3 ABG O2 Content ABG Base Excess ABG Carboxyhemoglobin ABG Methemoglobin Stepan Test Hemoglobin Carboxyhemoglobin O2 Delivery Device Liter Flow Vent Setting Inspired O2 Critical Value Sodium Potassium Chloride Carbon Dioxide Anion Gap BUN Creatinine Estimated GFR POC Glucose 184 H 114 H 59 L Random Glucose Hemoglobin A1c Lactic Acid Calcium Prot Corrected Calcium Phosphorus Magnesium Total Bilirubin Direct Bilirubin Indirect Bilirubin AST ALT Alkaline Phosphatase Ammonia Total Creatine Kinase Troponin I C-Reactive Protein B-Natriuretic Peptide Total Protein Albumin Prealbumin Triglycerides Cholesterol LDL Cholesterol HDL Cholesterol Cholesterol/HDL Ratio Thiamine Vitamin B12 Procalcitonin Free T4 TSH 3rd Generation Urine Color Urine Clarity Urine Turbidity Urine pH Ur Specific [place] Urine Protein Urine Glucose (UA) Urine Ketones Urine Occult Blood Urine Nitrate Urine Nitrite Urine Bilirubin Urine Urobilinogen Ur Leukocyte Esterase Urine RBC Urine WBC Urine WBC Clumps Ur Squamous Epith Cells Ur Transition Epith Cell Ur Renal Epithelial Cell Amorphous Sediment Urine Bacteria Hyaline Casts Granular Casts Urine Mucus Micro UA Comment Urine Culture Comments Urine Eosinophils Urine Osmolality Ur Random Creatinine Ur Random Sodium Pleural pH Pleural WBC Pleural Nuc Cells Pleural RBC Pleural Neutrophils Pleural Eosinophils Pleural Lymphocytes Pleural Monocytes Pleural Histocytes Pleural Mesothelial Pleural Total Protein Pleural Amylase Pleural LDH Pleural Glucose Nasal Screen MRSA (PCR) Stl C.difficile Tox PCR St C. diff Tox Epid 027 Vancomycin Trough Random Vancomycin Phenytoin Free Phenytoin LOWELL Screen RPR Blood Type Antibody Screen MTS Gel Crossmatch Blood Bank Comment 02/18/18 02/18/18 02/19/18 19:01 20:54 00:41 WBC RBC Hgb Hct MCV MCH MCHC RDW Plt Count MPV Prelim Diff (Auto) Neut % (Auto) Lymph % (Auto) [place] % (Auto) Eos % (Auto) Baso % (Auto) Neut # (Auto) Lymph # (Auto) [place] # (Auto) Eos # (Auto) Baso # (Auto) CBC Comment WBC Differential Total Counted Neutrophils % (Manual) Seg Neuts % (Manual) Band Neutrophils % Band Neuts % (Manual) Lymphocytes % Lymphocytes % (Manual) Monocytes % Monocytes % (Manual) Eosinophils % Eosinophils % (Manual) Basophils % Metamyelocytes % (Man) Neutrophils # (Manual) Abs Neuts (Manual) Metamyelocytes Myelocytes Nucleated RBCs Differential Comment Smudge Cells Toxic Granulation Toxic Vacuolation Dohle Bodies Platelet Estimate Platelet Morphology Plt Morphology Comment Basophilic Stippling Spherocytes Tear Drop Cells Ovalocytes Acanthocytes (Spur) RBC Morph Comment ESR Hematology Comments PT INR APTT Fibrinogen Puncture Site Patient Temperature HCO3 Base Excess O2 Saturation ABG pH ABG pCO2 ABG pO2 ABG HCO3 ABG O2 Content ABG Base Excess ABG Carboxyhemoglobin ABG Methemoglobin Steapn Test Hemoglobin Carboxyhemoglobin O2 Delivery Device Liter Flow Vent Setting Inspired O2 Critical Value Sodium Potassium Chloride Carbon Dioxide Anion Gap BUN Creatinine Estimated GFR POC Glucose 94 71 109 Random Glucose Hemoglobin A1c Lactic Acid Calcium Prot Corrected Calcium Phosphorus Magnesium Total Bilirubin Direct Bilirubin Indirect Bilirubin AST ALT Alkaline Phosphatase Ammonia Total Creatine Kinase Troponin I C-Reactive Protein B-Natriuretic Peptide Total Protein Albumin Prealbumin Triglycerides Cholesterol LDL Cholesterol HDL Cholesterol Cholesterol/HDL Ratio Thiamine Vitamin B12 Procalcitonin Free T4 TSH 3rd Generation Urine Color Urine Clarity Urine Turbidity Urine pH Ur Specific [place] Urine Protein Urine Glucose (UA) Urine Ketones Urine Occult Blood Urine Nitrate Urine Nitrite Urine Bilirubin Urine Urobilinogen Ur Leukocyte Esterase Urine RBC Urine WBC Urine WBC Clumps Ur Squamous Epith Cells Ur Transition Epith Cell Ur Renal Epithelial Cell Amorphous Sediment Urine Bacteria Hyaline Casts Granular Casts Urine Mucus Micro UA Comment Urine Culture Comments Urine Eosinophils Urine Osmolality Ur Random Creatinine Ur Random Sodium Pleural pH Pleural WBC Pleural Nuc Cells Pleural RBC Pleural Neutrophils Pleural Eosinophils Pleural Lymphocytes Pleural Monocytes Pleural Histocytes Pleural Mesothelial Pleural Total Protein Pleural Amylase Pleural LDH Pleural Glucose Nasal Screen MRSA (PCR) Stl C.difficile Tox PCR St C. diff Tox Epid 027 Vancomycin Trough Random Vancomycin Phenytoin Free Phenytoin LOWELL Screen RPR Blood Type Antibody Screen MTS Gel Crossmatch Blood Bank Comment 02/19/18 02/19/18 02/19/18 04:45 04:45 04:45 WBC 8.7 RBC 2.88 L Hgb 7.6 L Hct 24.1 L MCV 83.6 MCH 26.6 L MCHC 31.8 L RDW 20.2 H Plt Count 193 MPV 9.4 Prelim Diff (Auto) Neut % (Auto) 56.5 Lymph % (Auto) 31.5 [place] % (Auto) 7.7 Eos % (Auto) 4.1 H Baso % (Auto) 0.2 Neut # (Auto) 4.9 Lymph # (Auto) 2.7 [place] # (Auto) 0.7 Eos # (Auto) 0.4 Baso # (Auto) 0.0 CBC Comment WBC Differential . Total Counted Neutrophils % (Manual) Seg Neuts % (Manual) Band Neutrophils % Band Neuts % (Manual) Lymphocytes % Lymphocytes % (Manual) Monocytes % Monocytes % (Manual) Eosinophils % Eosinophils % (Manual) Basophils % Metamyelocytes % (Man) Neutrophils # (Manual) Abs Neuts (Manual) Metamyelocytes Myelocytes Nucleated RBCs Differential Comment Auto diff final Smudge Cells Toxic Granulation Toxic Vacuolation Dohle Bodies Platelet Estimate Platelet Morphology Plt Morphology Comment Basophilic Stippling Spherocytes Tear Drop Cells Ovalocytes Acanthocytes (Spur) RBC Morph Comment ESR Hematology Comments PT 32.8 H INR 3.3 APTT Fibrinogen Puncture Site Patient Temperature HCO3 Base Excess O2 Saturation ABG pH ABG pCO2 ABG pO2 ABG HCO3 ABG O2 Content ABG Base Excess ABG Carboxyhemoglobin ABG Methemoglobin Stepan Test Hemoglobin Carboxyhemoglobin O2 Delivery Device Liter Flow Vent Setting Inspired O2 Critical Value Sodium 151 H Potassium 3.4 L Chloride 114 H Carbon Dioxide 29.4 Anion Gap 8 BUN 78 H Creatinine 1.21 Estimated GFR 58 L POC Glucose Random Glucose 105 Hemoglobin A1c Lactic Acid Calcium 7.8 L Prot Corrected Calcium Phosphorus Magnesium Total Bilirubin 0.2 Direct Bilirubin Indirect Bilirubin AST 81 H ALT 41 Alkaline Phosphatase 204 H Ammonia Total Creatine Kinase Troponin I C-Reactive Protein B-Natriuretic Peptide Total Protein 6.1 L Albumin 1.1 L Prealbumin Triglycerides Cholesterol LDL Cholesterol HDL Cholesterol Cholesterol/HDL Ratio Thiamine Vitamin B12 Procalcitonin Free T4 TSH 3rd Generation Urine Color Urine Clarity Urine Turbidity Urine pH Ur Specific [place] Urine Protein Urine Glucose (UA) Urine Ketones Urine Occult Blood Urine Nitrate Urine Nitrite Urine Bilirubin Urine Urobilinogen Ur Leukocyte Esterase Urine RBC Urine WBC Urine WBC Clumps Ur Squamous Epith Cells Ur Transition Epith Cell Ur Renal Epithelial Cell Amorphous Sediment Urine Bacteria Hyaline Casts Granular Casts Urine Mucus Micro UA Comment Urine Culture Comments Urine Eosinophils Urine Osmolality Ur Random Creatinine Ur Random Sodium Pleural pH Pleural WBC Pleural Nuc Cells Pleural RBC Pleural Neutrophils Pleural Eosinophils Pleural Lymphocytes Pleural Monocytes Pleural Histocytes Pleural Mesothelial Pleural Total Protein Pleural Amylase Pleural LDH Pleural Glucose Nasal Screen MRSA (PCR) Stl C.difficile Tox PCR St C. diff Tox Epid 027 Vancomycin Trough Random Vancomycin Phenytoin Free Phenytoin LOWELL Screen RPR Blood Type Antibody Screen MTS Gel Crossmatch Blood Bank Comment 02/19/18 02/19/18 02/19/18 12:15 18:20 20:54 WBC RBC Hgb Hct MCV MCH MCHC RDW Plt Count MPV Prelim Diff (Auto) Neut % (Auto) Lymph % (Auto) [place] % (Auto) Eos % (Auto) Baso % (Auto) Neut # (Auto) Lymph # (Auto) [place] # (Auto) Eos # (Auto) Baso # (Auto) CBC Comment WBC Differential Total Counted Neutrophils % (Manual) Seg Neuts % (Manual) Band Neutrophils % Band Neuts % (Manual) Lymphocytes % Lymphocytes % (Manual) Monocytes % Monocytes % (Manual) Eosinophils % Eosinophils % (Manual) Basophils % Metamyelocytes % (Man) Neutrophils # (Manual) Abs Neuts (Manual) Metamyelocytes Myelocytes Nucleated RBCs Differential Comment Smudge Cells Toxic Granulation Toxic Vacuolation Dohle Bodies Platelet Estimate Platelet Morphology Plt Morphology Comment Basophilic Stippling Spherocytes Tear Drop Cells Ovalocytes Acanthocytes (Spur) RBC Morph Comment ESR Hematology Comments PT INR APTT Fibrinogen Puncture Site Patient Temperature HCO3 Base Excess O2 Saturation ABG pH ABG pCO2 ABG pO2 ABG HCO3 ABG O2 Content ABG Base Excess ABG Carboxyhemoglobin ABG Methemoglobin Stepan Test Hemoglobin Carboxyhemoglobin O2 Delivery Device Liter Flow Vent Setting Inspired O2 Critical Value Sodium Potassium Chloride Carbon Dioxide Anion Gap BUN Creatinine Estimated GFR POC Glucose 202 H 235 H 279 H Random Glucose Hemoglobin A1c Lactic Acid Calcium Prot Corrected Calcium Phosphorus Magnesium Total Bilirubin Direct Bilirubin Indirect Bilirubin AST ALT Alkaline Phosphatase Ammonia Total Creatine Kinase Troponin I C-Reactive Protein B-Natriuretic Peptide Total Protein Albumin Prealbumin Triglycerides Cholesterol LDL Cholesterol HDL Cholesterol Cholesterol/HDL Ratio Thiamine Vitamin B12 Procalcitonin Free T4 TSH 3rd Generation Urine Color Urine Clarity Urine Turbidity Urine pH Ur Specific [place] Urine Protein Urine Glucose (UA) Urine Ketones Urine Occult Blood Urine Nitrate Urine Nitrite Urine Bilirubin Urine Urobilinogen Ur Leukocyte Esterase Urine RBC Urine WBC Urine WBC Clumps Ur Squamous Epith Cells Ur Transition Epith Cell Ur Renal Epithelial Cell Amorphous Sediment Urine Bacteria Hyaline Casts Granular Casts Urine Mucus Micro UA Comment Urine Culture Comments Urine Eosinophils Urine Osmolality Ur Random Creatinine Ur Random Sodium Pleural pH Pleural WBC Pleural Nuc Cells Pleural RBC Pleural Neutrophils Pleural Eosinophils Pleural Lymphocytes Pleural Monocytes Pleural Histocytes Pleural Mesothelial Pleural Total Protein Pleural Amylase Pleural LDH Pleural Glucose Nasal Screen MRSA (PCR) Stl C.difficile Tox PCR St C. diff Tox Epid 027 Vancomycin Trough Random Vancomycin Phenytoin Free Phenytoin LOWELL Screen RPR Blood Type Antibody Screen MTS Gel Crossmatch Blood Bank Comment 02/19/18 02/20/18 02/20/18 23:30 04:30 04:43 WBC RBC Hgb Hct MCV MCH MCHC RDW Plt Count MPV Prelim Diff (Auto) Neut % (Auto) Lymph % (Auto) [place] % (Auto) Eos % (Auto) Baso % (Auto) Neut # (Auto) Lymph # (Auto) [place] # (Auto) Eos # (Auto) Baso # (Auto) CBC Comment WBC Differential Total Counted Neutrophils % (Manual) Seg Neuts % (Manual) Band Neutrophils % Band Neuts % (Manual) Lymphocytes % Lymphocytes % (Manual) Monocytes % Monocytes % (Manual) Eosinophils % Eosinophils % (Manual) Basophils % Metamyelocytes % (Man) Neutrophils # (Manual) Abs Neuts (Manual) Metamyelocytes Myelocytes Nucleated RBCs Differential Comment Smudge Cells Toxic Granulation Toxic Vacuolation Dohle Bodies Platelet Estimate Platelet Morphology Plt Morphology Comment Basophilic Stippling Spherocytes Tear Drop Cells Ovalocytes Acanthocytes (Spur) RBC Morph Comment ESR Hematology Comments PT 28.1 H INR 2.8 APTT Fibrinogen Puncture Site Patient Temperature HCO3 Base Excess O2 Saturation ABG pH ABG pCO2 ABG pO2 ABG HCO3 ABG O2 Content ABG Base Excess ABG Carboxyhemoglobin ABG Methemoglobin Stepan Test Hemoglobin Carboxyhemoglobin O2 Delivery Device Liter Flow Vent Setting Inspired O2 Critical Value Sodium Potassium Chloride Carbon Dioxide Anion Gap BUN Creatinine Estimated GFR POC Glucose 285 H 243 H Random Glucose Hemoglobin A1c Lactic Acid Calcium Prot Corrected Calcium Phosphorus Magnesium Total Bilirubin Direct Bilirubin Indirect Bilirubin AST ALT Alkaline Phosphatase Ammonia Total Creatine Kinase Troponin I C-Reactive Protein B-Natriuretic Peptide Total Protein Albumin Prealbumin Triglycerides Cholesterol LDL Cholesterol HDL Cholesterol Cholesterol/HDL Ratio Thiamine Vitamin B12 Procalcitonin Free T4 TSH 3rd Generation Urine Color Urine Clarity Urine Turbidity Urine pH Ur Specific [place] Urine Protein Urine Glucose (UA) Urine Ketones Urine Occult Blood Urine Nitrate Urine Nitrite Urine Bilirubin Urine Urobilinogen Ur Leukocyte Esterase Urine RBC Urine WBC Urine WBC Clumps Ur Squamous Epith Cells Ur Transition Epith Cell Ur Renal Epithelial Cell Amorphous Sediment Urine Bacteria Hyaline Casts Granular Casts Urine Mucus Micro UA Comment Urine Culture Comments Urine Eosinophils Urine Osmolality Ur Random Creatinine Ur Random Sodium Pleural pH Pleural WBC Pleural Nuc Cells Pleural RBC Pleural Neutrophils Pleural Eosinophils Pleural Lymphocytes Pleural Monocytes Pleural Histocytes Pleural Mesothelial Pleural Total Protein Pleural Amylase Pleural LDH Pleural Glucose Nasal Screen MRSA (PCR) Stl C.difficile Tox PCR St C. diff Tox Epid 027 Vancomycin Trough Random Vancomycin Phenytoin Free Phenytoin LOWELL Screen RPR Blood Type Antibody Screen MTS Gel Crossmatch Blood Bank Comment 02/20/18 02/20/18 02/20/18 12:02 14:45 18:27 WBC RBC Hgb Hct MCV MCH MCHC RDW Plt Count MPV Prelim Diff (Auto) Neut % (Auto) Lymph % (Auto) [place] % (Auto) Eos % (Auto) Baso % (Auto) Neut # (Auto) Lymph # (Auto) [place] # (Auto) Eos # (Auto) Baso # (Auto) CBC Comment WBC Differential Total Counted Neutrophils % (Manual) Seg Neuts % (Manual) Band Neutrophils % Band Neuts % (Manual) Lymphocytes % Lymphocytes % (Manual) Monocytes % Monocytes % (Manual) Eosinophils % Eosinophils % (Manual) Basophils % Metamyelocytes % (Man) Neutrophils # (Manual) Abs Neuts (Manual) Metamyelocytes Myelocytes Nucleated RBCs Differential Comment Smudge Cells Toxic Granulation Toxic Vacuolation Dohle Bodies Platelet Estimate Platelet Morphology Plt Morphology Comment Basophilic Stippling Spherocytes Tear Drop Cells Ovalocytes Acanthocytes (Spur) RBC Morph Comment ESR Hematology Comments PT INR APTT Fibrinogen Puncture Site Patient Temperature HCO3 Base Excess O2 Saturation ABG pH ABG pCO2 ABG pO2 ABG HCO3 ABG O2 Content ABG Base Excess ABG Carboxyhemoglobin ABG Methemoglobin Stepan Test Hemoglobin Carboxyhemoglobin O2 Delivery Device Liter Flow Vent Setting Inspired O2 Critical Value Sodium Potassium 4.1 Chloride Carbon Dioxide Anion Gap BUN Creatinine Estimated GFR POC Glucose 222 H 208 H Random Glucose Hemoglobin A1c Lactic Acid Calcium Prot Corrected Calcium Phosphorus Magnesium Total Bilirubin Direct Bilirubin Indirect Bilirubin AST ALT Alkaline Phosphatase Ammonia Total Creatine Kinase Troponin I C-Reactive Protein B-Natriuretic Peptide Total Protein Albumin Prealbumin Triglycerides Cholesterol LDL Cholesterol HDL Cholesterol Cholesterol/HDL Ratio Thiamine Vitamin B12 Procalcitonin Free T4 TSH 3rd Generation Urine Color Urine Clarity Urine Turbidity Urine pH Ur Specific [place] Urine Protein Urine Glucose (UA) Urine Ketones Urine Occult Blood Urine Nitrate Urine Nitrite Urine Bilirubin Urine Urobilinogen Ur Leukocyte Esterase Urine RBC Urine WBC Urine WBC Clumps Ur Squamous Epith Cells Ur Transition Epith Cell Ur Renal Epithelial Cell Amorphous Sediment Urine Bacteria Hyaline Casts Granular Casts Urine Mucus Micro UA Comment Urine Culture Comments Urine Eosinophils Urine Osmolality Ur Random Creatinine Ur Random Sodium Pleural pH Pleural WBC Pleural Nuc Cells Pleural RBC Pleural Neutrophils Pleural Eosinophils Pleural Lymphocytes Pleural Monocytes Pleural Histocytes Pleural Mesothelial Pleural Total Protein Pleural Amylase Pleural LDH Pleural Glucose Nasal Screen MRSA (PCR) Stl C.difficile Tox PCR St C. diff Tox Epid 027 Vancomycin Trough Random Vancomycin Phenytoin Free Phenytoin LOWELL Screen RPR Blood Type Antibody Screen MTS Gel Crossmatch Blood Bank Comment 02/20/18 02/21/18 02/21/18 20:38 01:56 04:00 WBC RBC Hgb Hct MCV MCH MCHC RDW Plt Count MPV Prelim Diff (Auto) Neut % (Auto) Lymph % (Auto) [place] % (Auto) Eos % (Auto) Baso % (Auto) Neut # (Auto) Lymph # (Auto) [place] # (Auto) Eos # (Auto) Baso # (Auto) CBC Comment WBC Differential Total Counted Neutrophils % (Manual) Seg Neuts % (Manual) Band Neutrophils % Band Neuts % (Manual) Lymphocytes % Lymphocytes % (Manual) Monocytes % Monocytes % (Manual) Eosinophils % Eosinophils % (Manual) Basophils % Metamyelocytes % (Man) Neutrophils # (Manual) Abs Neuts (Manual) Metamyelocytes Myelocytes Nucleated RBCs Differential Comment Smudge Cells Toxic Granulation Toxic Vacuolation Dohle Bodies Platelet Estimate Platelet Morphology Plt Morphology Comment Basophilic Stippling Spherocytes Tear Drop Cells Ovalocytes Acanthocytes (Spur) RBC Morph Comment ESR Hematology Comments PT 25.1 H INR 2.5 APTT Fibrinogen Puncture Site Patient Temperature HCO3 Base Excess O2 Saturation ABG pH ABG pCO2 ABG pO2 ABG HCO3 ABG O2 Content ABG Base Excess ABG Carboxyhemoglobin ABG Methemoglobin Stepan Test Hemoglobin Carboxyhemoglobin O2 Delivery Device Liter Flow Vent Setting Inspired O2 Critical Value Sodium Potassium Chloride Carbon Dioxide Anion Gap BUN Creatinine Estimated GFR POC Glucose 234 H 269 H Random Glucose Hemoglobin A1c Lactic Acid Calcium Prot Corrected Calcium Phosphorus Magnesium Total Bilirubin Direct Bilirubin Indirect Bilirubin AST ALT Alkaline Phosphatase Ammonia Total Creatine Kinase Troponin I C-Reactive Protein B-Natriuretic Peptide Total Protein Albumin Prealbumin Triglycerides Cholesterol LDL Cholesterol HDL Cholesterol Cholesterol/HDL Ratio Thiamine Vitamin B12 Procalcitonin Free T4 TSH 3rd Generation Urine Color Urine Clarity Urine Turbidity Urine pH Ur Specific [place] Urine Protein Urine Glucose (UA) Urine Ketones Urine Occult Blood Urine Nitrate Urine Nitrite Urine Bilirubin Urine Urobilinogen Ur Leukocyte Esterase Urine RBC Urine WBC Urine WBC Clumps Ur Squamous Epith Cells Ur Transition Epith Cell Ur Renal Epithelial Cell Amorphous Sediment Urine Bacteria Hyaline Casts Granular Casts Urine Mucus Micro UA Comment Urine Culture Comments Urine Eosinophils Urine Osmolality Ur Random Creatinine Ur Random Sodium Pleural pH Pleural WBC Pleural Nuc Cells Pleural RBC Pleural Neutrophils Pleural Eosinophils Pleural Lymphocytes Pleural Monocytes Pleural Histocytes Pleural Mesothelial Pleural Total Protein Pleural Amylase Pleural LDH Pleural Glucose Nasal Screen MRSA (PCR) Stl C.difficile Tox PCR St C. diff Tox Epid 027 Vancomycin Trough Random Vancomycin Phenytoin Free Phenytoin LOWELL Screen RPR Blood Type Antibody Screen MTS Gel Crossmatch Blood Bank Comment 02/21/18 02/21/18 02/21/18 04:00 11:50 18:26 WBC RBC Hgb Hct MCV MCH MCHC RDW Plt Count MPV Prelim Diff (Auto) Neut % (Auto) Lymph % (Auto) [place] % (Auto) Eos % (Auto) Baso % (Auto) Neut # (Auto) Lymph # (Auto) [place] # (Auto) Eos # (Auto) Baso # (Auto) CBC Comment WBC Differential Total Counted Neutrophils % (Manual) Seg Neuts % (Manual) Band Neutrophils % Band Neuts % (Manual) Lymphocytes % Lymphocytes % (Manual) Monocytes % Monocytes % (Manual) Eosinophils % Eosinophils % (Manual) Basophils % Metamyelocytes % (Man) Neutrophils # (Manual) Abs Neuts (Manual) Metamyelocytes Myelocytes Nucleated RBCs Differential Comment Smudge Cells Toxic Granulation Toxic Vacuolation Dohle Bodies Platelet Estimate Platelet Morphology Plt Morphology Comment Basophilic Stippling Spherocytes Tear Drop Cells Ovalocytes Acanthocytes (Spur) RBC Morph Comment ESR Hematology Comments PT INR APTT Fibrinogen Puncture Site Patient Temperature HCO3 Base Excess O2 Saturation ABG pH ABG pCO2 ABG pO2 ABG HCO3 ABG O2 Content ABG Base Excess ABG Carboxyhemoglobin ABG Methemoglobin Stepan Test Hemoglobin Carboxyhemoglobin O2 Delivery Device Liter Flow Vent Setting Inspired O2 Critical Value Sodium 151 H Potassium 3.8 Chloride 111 H Carbon Dioxide 31.2 Anion Gap 9 BUN 72 H Creatinine 1.33 H Estimated GFR 52 L POC Glucose 220 H 213 H Random Glucose 212 H D Hemoglobin A1c Lactic Acid Calcium 7.7 L Prot Corrected Calcium Phosphorus Magnesium Total Bilirubin Direct Bilirubin Indirect Bilirubin AST ALT Alkaline Phosphatase Ammonia Total Creatine Kinase Troponin I C-Reactive Protein B-Natriuretic Peptide Total Protein Albumin Prealbumin Triglycerides Cholesterol LDL Cholesterol HDL Cholesterol Cholesterol/HDL Ratio Thiamine Vitamin B12 Procalcitonin Free T4 TSH 3rd Generation Urine Color Urine Clarity Urine Turbidity Urine pH Ur Specific [place] Urine Protein Urine Glucose (UA) Urine Ketones Urine Occult Blood Urine Nitrate Urine Nitrite Urine Bilirubin Urine Urobilinogen Ur Leukocyte Esterase Urine RBC Urine WBC Urine WBC Clumps Ur Squamous Epith Cells Ur Transition Epith Cell Ur Renal Epithelial Cell Amorphous Sediment Urine Bacteria Hyaline Casts Granular Casts Urine Mucus Micro UA Comment Urine Culture Comments Urine Eosinophils Urine Osmolality Ur Random Creatinine Ur Random Sodium Pleural pH Pleural WBC Pleural Nuc Cells Pleural RBC Pleural Neutrophils Pleural Eosinophils Pleural Lymphocytes Pleural Monocytes Pleural Histocytes Pleural Mesothelial Pleural Total Protein Pleural Amylase Pleural LDH Pleural Glucose Nasal Screen MRSA (PCR) Stl C.difficile Tox PCR St C. diff Tox Epid 027 Vancomycin Trough Random Vancomycin Phenytoin Free Phenytoin LOWELL Screen RPR Blood Type Antibody Screen MTS Gel Crossmatch Blood Bank Comment 02/21/18 02/22/18 02/22/18 20:38 02:15 04:35 WBC RBC Hgb Hct MCV MCH MCHC RDW Plt Count MPV Prelim Diff (Auto) Neut % (Auto) Lymph % (Auto) [place] % (Auto) Eos % (Auto) Baso % (Auto) Neut # (Auto) Lymph # (Auto) [place] # (Auto) Eos # (Auto) Baso # (Auto) CBC Comment WBC Differential Total Counted Neutrophils % (Manual) Seg Neuts % (Manual) Band Neutrophils % Band Neuts % (Manual) Lymphocytes % Lymphocytes % (Manual) Monocytes % Monocytes % (Manual) Eosinophils % Eosinophils % (Manual) Basophils % Metamyelocytes % (Man) Neutrophils # (Manual) Abs Neuts (Manual) Metamyelocytes Myelocytes Nucleated RBCs Differential Comment Smudge Cells Toxic Granulation Toxic Vacuolation Dohle Bodies Platelet Estimate Platelet Morphology Plt Morphology Comment Basophilic Stippling Spherocytes Tear Drop Cells Ovalocytes Acanthocytes (Spur) RBC Morph Comment ESR Hematology Comments PT 21.3 H INR 2.1 APTT Fibrinogen Puncture Site Patient Temperature HCO3 Base Excess O2 Saturation ABG pH ABG pCO2 ABG pO2 ABG HCO3 ABG O2 Content ABG Base Excess ABG Carboxyhemoglobin ABG Methemoglobin Stepan Test Hemoglobin Carboxyhemoglobin O2 Delivery Device Liter Flow Vent Setting Inspired O2 Critical Value Sodium Potassium Chloride Carbon Dioxide Anion Gap BUN Creatinine Estimated GFR POC Glucose 195 H 152 H Random Glucose Hemoglobin A1c Lactic Acid Calcium Prot Corrected Calcium Phosphorus Magnesium Total Bilirubin Direct Bilirubin Indirect Bilirubin AST ALT Alkaline Phosphatase Ammonia Total Creatine Kinase Troponin I C-Reactive Protein B-Natriuretic Peptide Total Protein Albumin Prealbumin Triglycerides Cholesterol LDL Cholesterol HDL Cholesterol Cholesterol/HDL Ratio Thiamine Vitamin B12 Procalcitonin Free T4 TSH 3rd Generation Urine Color Urine Clarity Urine Turbidity Urine pH Ur Specific [place] Urine Protein Urine Glucose (UA) Urine Ketones Urine Occult Blood Urine Nitrate Urine Nitrite Urine Bilirubin Urine Urobilinogen Ur Leukocyte Esterase Urine RBC Urine WBC Urine WBC Clumps Ur Squamous Epith Cells Ur Transition Epith Cell Ur Renal Epithelial Cell Amorphous Sediment Urine Bacteria Hyaline Casts Granular Casts Urine Mucus Micro UA Comment Urine Culture Comments Urine Eosinophils Urine Osmolality Ur Random Creatinine Ur Random Sodium Pleural pH Pleural WBC Pleural Nuc Cells Pleural RBC Pleural Neutrophils Pleural Eosinophils Pleural Lymphocytes Pleural Monocytes Pleural Histocytes Pleural Mesothelial Pleural Total Protein Pleural Amylase Pleural LDH Pleural Glucose Nasal Screen MRSA (PCR) Stl C.difficile Tox PCR St C. diff Tox Epid 027 Vancomycin Trough Random Vancomycin Phenytoin Free Phenytoin LOWELL Screen RPR Blood Type Antibody Screen MTS Gel Crossmatch Blood Bank Comment 02/22/18 02/22/18 02/22/18 05:47 09:24 11:50 WBC RBC Hgb Hct MCV MCH MCHC RDW Plt Count MPV Prelim Diff (Auto) Neut % (Auto) Lymph % (Auto) [place] % (Auto) Eos % (Auto) Baso % (Auto) Neut # (Auto) Lymph # (Auto) [place] # (Auto) Eos # (Auto) Baso # (Auto) CBC Comment WBC Differential Total Counted Neutrophils % (Manual) Seg Neuts % (Manual) Band Neutrophils % Band Neuts % (Manual) Lymphocytes % Lymphocytes % (Manual) Monocytes % Monocytes % (Manual) Eosinophils % Eosinophils % (Manual) Basophils % Metamyelocytes % (Man) Neutrophils # (Manual) Abs Neuts (Manual) Metamyelocytes Myelocytes Nucleated RBCs Differential Comment Smudge Cells Toxic Granulation Toxic Vacuolation Dohle Bodies Platelet Estimate Platelet Morphology Plt Morphology Comment Basophilic Stippling Spherocytes Tear Drop Cells Ovalocytes Acanthocytes (Spur) RBC Morph Comment ESR Hematology Comments PT INR APTT Fibrinogen Puncture Site Patient Temperature HCO3 Base Excess O2 Saturation ABG pH ABG pCO2 ABG pO2 ABG HCO3 ABG O2 Content ABG Base Excess ABG Carboxyhemoglobin ABG Methemoglobin Stepan Test Hemoglobin Carboxyhemoglobin O2 Delivery Device Liter Flow Vent Setting Inspired O2 Critical Value Sodium Potassium Chloride Carbon Dioxide Anion Gap BUN Creatinine Estimated GFR POC Glucose 119 H 112 H 112 H Random Glucose Hemoglobin A1c Lactic Acid Calcium Prot Corrected Calcium Phosphorus Magnesium Total Bilirubin Direct Bilirubin Indirect Bilirubin AST ALT Alkaline Phosphatase Ammonia Total Creatine Kinase Troponin I C-Reactive Protein B-Natriuretic Peptide Total Protein Albumin Prealbumin Triglycerides Cholesterol LDL Cholesterol HDL Cholesterol Cholesterol/HDL Ratio Thiamine Vitamin B12 Procalcitonin Free T4 TSH 3rd Generation Urine Color Urine Clarity Urine Turbidity Urine pH Ur Specific [place] Urine Protein Urine Glucose (UA) Urine Ketones Urine Occult Blood Urine Nitrate Urine Nitrite Urine Bilirubin Urine Urobilinogen Ur Leukocyte Esterase Urine RBC Urine WBC Urine WBC Clumps Ur Squamous Epith Cells Ur Transition Epith Cell Ur Renal Epithelial Cell Amorphous Sediment Urine Bacteria Hyaline Casts Granular Casts Urine Mucus Micro UA Comment Urine Culture Comments Urine Eosinophils Urine Osmolality Ur Random Creatinine Ur Random Sodium Pleural pH Pleural WBC Pleural Nuc Cells Pleural RBC Pleural Neutrophils Pleural Eosinophils Pleural Lymphocytes Pleural Monocytes Pleural Histocytes Pleural Mesothelial Pleural Total Protein Pleural Amylase Pleural LDH Pleural Glucose Nasal Screen MRSA (PCR) Stl C.difficile Tox PCR St C. diff Tox Epid 027 Vancomycin Trough Random Vancomycin Phenytoin Free Phenytoin LOWELL Screen RPR Blood Type Antibody Screen MTS Gel Crossmatch Blood Bank Comment 02/22/18 02/22/18 02/23/18 18:46 20:26 00:12 WBC RBC Hgb Hct MCV MCH MCHC RDW Plt Count MPV Prelim Diff (Auto) Neut % (Auto) Lymph % (Auto) [place] % (Auto) Eos % (Auto) Baso % (Auto) Neut # (Auto) Lymph # (Auto) [place] # (Auto) Eos # (Auto) Baso # (Auto) CBC Comment WBC Differential Total Counted Neutrophils % (Manual) Seg Neuts % (Manual) Band Neutrophils % Band Neuts % (Manual) Lymphocytes % Lymphocytes % (Manual) Monocytes % Monocytes % (Manual) Eosinophils % Eosinophils % (Manual) Basophils % Metamyelocytes % (Man) Neutrophils # (Manual) Abs Neuts (Manual) Metamyelocytes Myelocytes Nucleated RBCs Differential Comment Smudge Cells Toxic Granulation Toxic Vacuolation Dohle Bodies Platelet Estimate Platelet Morphology Plt Morphology Comment Basophilic Stippling Spherocytes Tear Drop Cells Ovalocytes Acanthocytes (Spur) RBC Morph Comment ESR Hematology Comments PT INR APTT Fibrinogen Puncture Site Patient Temperature HCO3 Base Excess O2 Saturation ABG pH ABG pCO2 ABG pO2 ABG HCO3 ABG O2 Content ABG Base Excess ABG Carboxyhemoglobin ABG Methemoglobin Stepan Test Hemoglobin Carboxyhemoglobin O2 Delivery Device Liter Flow Vent Setting Inspired O2 Critical Value Sodium Potassium Chloride Carbon Dioxide Anion Gap BUN Creatinine Estimated GFR POC Glucose 93 105 100 Random Glucose Hemoglobin A1c Lactic Acid Calcium Prot Corrected Calcium Phosphorus Magnesium Total Bilirubin Direct Bilirubin Indirect Bilirubin AST ALT Alkaline Phosphatase Ammonia Total Creatine Kinase Troponin I C-Reactive Protein B-Natriuretic Peptide Total Protein Albumin Prealbumin Triglycerides Cholesterol LDL Cholesterol HDL Cholesterol Cholesterol/HDL Ratio Thiamine Vitamin B12 Procalcitonin Free T4 TSH 3rd Generation Urine Color Urine Clarity Urine Turbidity Urine pH Ur Specific [place] Urine Protein Urine Glucose (UA) Urine Ketones Urine Occult Blood Urine Nitrate Urine Nitrite Urine Bilirubin Urine Urobilinogen Ur Leukocyte Esterase Urine RBC Urine WBC Urine WBC Clumps Ur Squamous Epith Cells Ur Transition Epith Cell Ur Renal Epithelial Cell Amorphous Sediment Urine Bacteria Hyaline Casts Granular Casts Urine Mucus Micro UA Comment Urine Culture Comments Urine Eosinophils Urine Osmolality Ur Random Creatinine Ur Random Sodium Pleural pH Pleural WBC Pleural Nuc Cells Pleural RBC Pleural Neutrophils Pleural Eosinophils Pleural Lymphocytes Pleural Monocytes Pleural Histocytes Pleural Mesothelial Pleural Total Protein Pleural Amylase Pleural LDH Pleural Glucose Nasal Screen MRSA (PCR) Stl C.difficile Tox PCR St C. diff Tox Epid 027 Vancomycin Trough Random Vancomycin Phenytoin Free Phenytoin LOWELL Screen RPR Blood Type Antibody Screen MTS Gel Crossmatch Blood Bank Comment 02/23/18 02/23/18 02/23/18 04:45 04:45 04:45 WBC 9.1 RBC 2.48 L Hgb 6.6 L* Hct 20.3 L* MCV 82.2 MCH 26.6 L MCHC 32.3 RDW 20.3 H Plt Count 232 MPV 9.3 Prelim Diff (Auto) Neut % (Auto) Lymph % (Auto) [place] % (Auto) Eos % (Auto) Baso % (Auto) Neut # (Auto) Lymph # (Auto) [place] # (Auto) Eos # (Auto) Baso # (Auto) CBC Comment WBC Differential Total Counted Neutrophils % (Manual) Seg Neuts % (Manual) Band Neutrophils % Band Neuts % (Manual) Lymphocytes % Lymphocytes % (Manual) Monocytes % Monocytes % (Manual) Eosinophils % Eosinophils % (Manual) Basophils % Metamyelocytes % (Man) Neutrophils # (Manual) Abs Neuts (Manual) Metamyelocytes Myelocytes Nucleated RBCs Differential Comment Smudge Cells Toxic Granulation Toxic Vacuolation Dohle Bodies Platelet Estimate Platelet Morphology Plt Morphology Comment Basophilic Stippling Spherocytes Tear Drop Cells Ovalocytes Acanthocytes (Spur) RBC Morph Comment ESR Hematology Comments PT 18.4 H INR 1.8 APTT Fibrinogen Puncture Site Patient Temperature HCO3 Base Excess O2 Saturation ABG pH ABG pCO2 ABG pO2 ABG HCO3 ABG O2 Content ABG Base Excess ABG Carboxyhemoglobin ABG Methemoglobin Stepan Test Hemoglobin Carboxyhemoglobin O2 Delivery Device Liter Flow Vent Setting Inspired O2 Critical Value Sodium 149 H Potassium 3.9 Chloride 110 H Carbon Dioxide 31.4 Anion Gap 8 BUN 76 H Creatinine 1.37 H Estimated GFR 50 L POC Glucose Random Glucose 128 H Hemoglobin A1c Lactic Acid Calcium 7.7 L Prot Corrected Calcium Phosphorus Magnesium Total Bilirubin Direct Bilirubin Indirect Bilirubin AST ALT Alkaline Phosphatase Ammonia Total Creatine Kinase Troponin I C-Reactive Protein B-Natriuretic Peptide Total Protein Albumin Prealbumin Triglycerides Cholesterol LDL Cholesterol HDL Cholesterol Cholesterol/HDL Ratio Thiamine Vitamin B12 Procalcitonin Free T4 TSH 3rd Generation Urine Color Urine Clarity Urine Turbidity Urine pH Ur Specific [place] Urine Protein Urine Glucose (UA) Urine Ketones Urine Occult Blood Urine Nitrate Urine Nitrite Urine Bilirubin Urine Urobilinogen Ur Leukocyte Esterase Urine RBC Urine WBC Urine WBC Clumps Ur Squamous Epith Cells Ur Transition Epith Cell Ur Renal Epithelial Cell Amorphous Sediment Urine Bacteria Hyaline Casts Granular Casts Urine Mucus Micro UA Comment Urine Culture Comments Urine Eosinophils Urine Osmolality Ur Random Creatinine Ur Random Sodium Pleural pH Pleural WBC Pleural Nuc Cells Pleural RBC Pleural Neutrophils Pleural Eosinophils Pleural Lymphocytes Pleural Monocytes Pleural Histocytes Pleural Mesothelial Pleural Total Protein Pleural Amylase Pleural LDH Pleural Glucose Nasal Screen MRSA (PCR) Stl C.difficile Tox PCR St C. diff Tox Epid 027 Vancomycin Trough Random Vancomycin Phenytoin Free Phenytoin LOWELL Screen RPR Blood Type Antibody Screen MTS Gel Crossmatch Blood Bank Comment 02/23/18 02/23/18 02/23/18 06:20 09:07 11:24 WBC RBC Hgb Hct MCV MCH MCHC RDW Plt Count MPV Prelim Diff (Auto) Neut % (Auto) Lymph % (Auto) [place] % (Auto) Eos % (Auto) Baso % (Auto) Neut # (Auto) Lymph # (Auto) [place] # (Auto) Eos # (Auto) Baso # (Auto) CBC Comment WBC Differential Total Counted Neutrophils % (Manual) Seg Neuts % (Manual) Band Neutrophils % Band Neuts % (Manual) Lymphocytes % Lymphocytes % (Manual) Monocytes % Monocytes % (Manual) Eosinophils % Eosinophils % (Manual) Basophils % Metamyelocytes % (Man) Neutrophils # (Manual) Abs Neuts (Manual) Metamyelocytes Myelocytes Nucleated RBCs Differential Comment Smudge Cells Toxic Granulation Toxic Vacuolation Dohle Bodies Platelet Estimate Platelet Morphology Plt Morphology Comment Basophilic Stippling Spherocytes Tear Drop Cells Ovalocytes Acanthocytes (Spur) RBC Morph Comment ESR Hematology Comments PT INR APTT Fibrinogen Puncture Site Patient Temperature HCO3 Base Excess O2 Saturation ABG pH ABG pCO2 ABG pO2 ABG HCO3 ABG O2 Content ABG Base Excess ABG Carboxyhemoglobin ABG Methemoglobin Stepan Test Hemoglobin Carboxyhemoglobin O2 Delivery Device Liter Flow Vent Setting Inspired O2 Critical Value Sodium Potassium Chloride Carbon Dioxide Anion Gap BUN Creatinine Estimated GFR POC Glucose 161 H 159 H Random Glucose Hemoglobin A1c Lactic Acid Calcium Prot Corrected Calcium Phosphorus Magnesium Total Bilirubin Direct Bilirubin Indirect Bilirubin AST ALT Alkaline Phosphatase Ammonia Total Creatine Kinase Troponin I C-Reactive Protein B-Natriuretic Peptide Total Protein Albumin Prealbumin Triglycerides Cholesterol LDL Cholesterol HDL Cholesterol Cholesterol/HDL Ratio Thiamine Vitamin B12 Procalcitonin Free T4 TSH 3rd Generation Urine Color Urine Clarity Urine Turbidity Urine pH Ur Specific [place] Urine Protein Urine Glucose (UA) Urine Ketones Urine Occult Blood Urine Nitrate Urine Nitrite Urine Bilirubin Urine Urobilinogen Ur Leukocyte Esterase Urine RBC Urine WBC Urine WBC Clumps Ur Squamous Epith Cells Ur Transition Epith Cell Ur Renal Epithelial Cell Amorphous Sediment Urine Bacteria Hyaline Casts Granular Casts Urine Mucus Micro UA Comment Urine Culture Comments Urine Eosinophils Urine Osmolality Ur Random Creatinine Ur Random Sodium Pleural pH Pleural WBC Pleural Nuc Cells Pleural RBC Pleural Neutrophils Pleural Eosinophils Pleural Lymphocytes Pleural Monocytes Pleural Histocytes Pleural Mesothelial Pleural Total Protein Pleural Amylase Pleural LDH Pleural Glucose Nasal Screen MRSA (PCR) Stl C.difficile Tox PCR St C. diff Tox Epid 027 Vancomycin Trough Random Vancomycin Phenytoin Free Phenytoin LOWELL Screen RPR Blood Type A Positive Antibody Screen Negative MTS Gel Crossmatch See Detail Blood Bank Comment 02/23/18 02/23/18 02/23/18 17:32 20:45 23:43 WBC RBC Hgb Hct MCV MCH MCHC RDW Plt Count MPV Prelim Diff (Auto) Neut % (Auto) Lymph % (Auto) [place] % (Auto) Eos % (Auto) Baso % (Auto) Neut # (Auto) Lymph # (Auto) [place] # (Auto) Eos # (Auto) Baso # (Auto) CBC Comment WBC Differential Total Counted Neutrophils % (Manual) Seg Neuts % (Manual) Band Neutrophils % Band Neuts % (Manual) Lymphocytes % Lymphocytes % (Manual) Monocytes % Monocytes % (Manual) Eosinophils % Eosinophils % (Manual) Basophils % Metamyelocytes % (Man) Neutrophils # (Manual) Abs Neuts (Manual) Metamyelocytes Myelocytes Nucleated RBCs Differential Comment Smudge Cells Toxic Granulation Toxic Vacuolation Dohle Bodies Platelet Estimate Platelet Morphology Plt Morphology Comment Basophilic Stippling Spherocytes Tear Drop Cells Ovalocytes Acanthocytes (Spur) RBC Morph Comment ESR Hematology Comments PT INR APTT Fibrinogen Puncture Site Patient Temperature HCO3 Base Excess O2 Saturation ABG pH ABG pCO2 ABG pO2 ABG HCO3 ABG O2 Content ABG Base Excess ABG Carboxyhemoglobin ABG Methemoglobin Stepan Test Hemoglobin Carboxyhemoglobin O2 Delivery Device Liter Flow Vent Setting Inspired O2 Critical Value Sodium Potassium Chloride Carbon Dioxide Anion Gap BUN Creatinine Estimated GFR POC Glucose 158 H 142 H 127 H Random Glucose Hemoglobin A1c Lactic Acid Calcium Prot Corrected Calcium Phosphorus Magnesium Total Bilirubin Direct Bilirubin Indirect Bilirubin AST ALT Alkaline Phosphatase Ammonia Total Creatine Kinase Troponin I C-Reactive Protein B-Natriuretic Peptide Total Protein Albumin Prealbumin Triglycerides Cholesterol LDL Cholesterol HDL Cholesterol Cholesterol/HDL Ratio Thiamine Vitamin B12 Procalcitonin Free T4 TSH 3rd Generation Urine Color Urine Clarity Urine Turbidity Urine pH Ur Specific [place] Urine Protein Urine Glucose (UA) Urine Ketones Urine Occult Blood Urine Nitrate Urine Nitrite Urine Bilirubin Urine Urobilinogen Ur Leukocyte Esterase Urine RBC Urine WBC Urine WBC Clumps Ur Squamous Epith Cells Ur Transition Epith Cell Ur Renal Epithelial Cell Amorphous Sediment Urine Bacteria Hyaline Casts Granular Casts Urine Mucus Micro UA Comment Urine Culture Comments Urine Eosinophils Urine Osmolality Ur Random Creatinine Ur Random Sodium Pleural pH Pleural WBC Pleural Nuc Cells Pleural RBC Pleural Neutrophils Pleural Eosinophils Pleural Lymphocytes Pleural Monocytes Pleural Histocytes Pleural Mesothelial Pleural Total Protein Pleural Amylase Pleural LDH Pleural Glucose Nasal Screen MRSA (PCR) Stl C.difficile Tox PCR St C. diff Tox Epid 027 Vancomycin Trough Random Vancomycin Phenytoin Free Phenytoin LOWELL Screen RPR Blood Type Antibody Screen MTS Gel Crossmatch Blood Bank Comment 02/24/18 02/24/18 02/24/18 05:00 05:31 08:10 WBC RBC Hgb Hct MCV MCH MCHC RDW Plt Count MPV Prelim Diff (Auto) Neut % (Auto) Lymph % (Auto) [place] % (Auto) Eos % (Auto) Baso % (Auto) Neut # (Auto) Lymph # (Auto) [place] # (Auto) Eos # (Auto) Baso # (Auto) CBC Comment WBC Differential Total Counted Neutrophils % (Manual) Seg Neuts % (Manual) Band Neutrophils % Band Neuts % (Manual) Lymphocytes % Lymphocytes % (Manual) Monocytes % Monocytes % (Manual) Eosinophils % Eosinophils % (Manual) Basophils % Metamyelocytes % (Man) Neutrophils # (Manual) Abs Neuts (Manual) Metamyelocytes Myelocytes Nucleated RBCs Differential Comment Smudge Cells Toxic Granulation Toxic Vacuolation Dohle Bodies Platelet Estimate Platelet Morphology Plt Morphology Comment Basophilic Stippling Spherocytes Tear Drop Cells Ovalocytes Acanthocytes (Spur) RBC Morph Comment ESR Hematology Comments PT 18.3 H INR 1.8 APTT Fibrinogen Puncture Site Patient Temperature HCO3 Base Excess O2 Saturation ABG pH ABG pCO2 ABG pO2 ABG HCO3 ABG O2 Content ABG Base Excess ABG Carboxyhemoglobin ABG Methemoglobin Stepan Test Hemoglobin Carboxyhemoglobin O2 Delivery Device Liter Flow Vent Setting Inspired O2 Critical Value Sodium Potassium Chloride Carbon Dioxide Anion Gap BUN Creatinine Estimated GFR POC Glucose 130 H 108 Random Glucose Hemoglobin A1c Lactic Acid Calcium Prot Corrected Calcium Phosphorus Magnesium Total Bilirubin Direct Bilirubin Indirect Bilirubin AST ALT Alkaline Phosphatase Ammonia Total Creatine Kinase Troponin I C-Reactive Protein B-Natriuretic Peptide Total Protein Albumin Prealbumin Triglycerides Cholesterol LDL Cholesterol HDL Cholesterol Cholesterol/HDL Ratio Thiamine Vitamin B12 Procalcitonin Free T4 TSH 3rd Generation Urine Color Urine Clarity Urine Turbidity Urine pH Ur Specific [place] Urine Protein Urine Glucose (UA) Urine Ketones Urine Occult Blood Urine Nitrate Urine Nitrite Urine Bilirubin Urine Urobilinogen Ur Leukocyte Esterase Urine RBC Urine WBC Urine WBC Clumps Ur Squamous Epith Cells Ur Transition Epith Cell Ur Renal Epithelial Cell Amorphous Sediment Urine Bacteria Hyaline Casts Granular Casts Urine Mucus Micro UA Comment Urine Culture Comments Urine Eosinophils Urine Osmolality Ur Random Creatinine Ur Random Sodium Pleural pH Pleural WBC Pleural Nuc Cells Pleural RBC Pleural Neutrophils Pleural Eosinophils Pleural Lymphocytes Pleural Monocytes Pleural Histocytes Pleural Mesothelial Pleural Total Protein Pleural Amylase Pleural LDH Pleural Glucose Nasal Screen MRSA (PCR) Stl C.difficile Tox PCR St C. diff Tox Epid 027 Vancomycin Trough Random Vancomycin Phenytoin Free Phenytoin LOWELL Screen RPR Blood Type Antibody Screen MTS Gel Crossmatch Blood Bank Comment 02/24/18 02/24/18 02/24/18 13:01 17:38 20:39 WBC RBC Hgb Hct MCV MCH MCHC RDW Plt Count MPV Prelim Diff (Auto) Neut % (Auto) Lymph % (Auto) [place] % (Auto) Eos % (Auto) Baso % (Auto) Neut # (Auto) Lymph # (Auto) [place] # (Auto) Eos # (Auto) Baso # (Auto) CBC Comment WBC Differential Total Counted Neutrophils % (Manual) Seg Neuts % (Manual) Band Neutrophils % Band Neuts % (Manual) Lymphocytes % Lymphocytes % (Manual) Monocytes % Monocytes % (Manual) Eosinophils % Eosinophils % (Manual) Basophils % Metamyelocytes % (Man) Neutrophils # (Manual) Abs Neuts (Manual) Metamyelocytes Myelocytes Nucleated RBCs Differential Comment Smudge Cells Toxic Granulation Toxic Vacuolation Dohle Bodies Platelet Estimate Platelet Morphology Plt Morphology Comment Basophilic Stippling Spherocytes Tear Drop Cells Ovalocytes Acanthocytes (Spur) RBC Morph Comment ESR Hematology Comments PT INR APTT Fibrinogen Puncture Site Patient Temperature HCO3 Base Excess O2 Saturation ABG pH ABG pCO2 ABG pO2 ABG HCO3 ABG O2 Content ABG Base Excess ABG Carboxyhemoglobin ABG Methemoglobin Stepan Test Hemoglobin Carboxyhemoglobin O2 Delivery Device Liter Flow Vent Setting Inspired O2 Critical Value Sodium Potassium Chloride Carbon Dioxide Anion Gap BUN Creatinine Estimated GFR POC Glucose 109 125 H 145 H Random Glucose Hemoglobin A1c Lactic Acid Calcium Prot Corrected Calcium Phosphorus Magnesium Total Bilirubin Direct Bilirubin Indirect Bilirubin AST ALT Alkaline Phosphatase Ammonia Total Creatine Kinase Troponin I C-Reactive Protein B-Natriuretic Peptide Total Protein Albumin Prealbumin Triglycerides Cholesterol LDL Cholesterol HDL Cholesterol Cholesterol/HDL Ratio Thiamine Vitamin B12 Procalcitonin Free T4 TSH 3rd Generation Urine Color Urine Clarity Urine Turbidity Urine pH Ur Specific [place] Urine Protein Urine Glucose (UA) Urine Ketones Urine Occult Blood Urine Nitrate Urine Nitrite Urine Bilirubin Urine Urobilinogen Ur Leukocyte Esterase Urine RBC Urine WBC Urine WBC Clumps Ur Squamous Epith Cells Ur Transition Epith Cell Ur Renal Epithelial Cell Amorphous Sediment Urine Bacteria Hyaline Casts Granular Casts Urine Mucus Micro UA Comment Urine Culture Comments Urine Eosinophils Urine Osmolality Ur Random Creatinine Ur Random Sodium Pleural pH Pleural WBC Pleural Nuc Cells Pleural RBC Pleural Neutrophils Pleural Eosinophils Pleural Lymphocytes Pleural Monocytes Pleural Histocytes Pleural Mesothelial Pleural Total Protein Pleural Amylase Pleural LDH Pleural Glucose Nasal Screen MRSA (PCR) Stl C.difficile Tox PCR St C. diff Tox Epid 027 Vancomycin Trough Random Vancomycin Phenytoin Free Phenytoin LOWELL Screen RPR Blood Type Antibody Screen MTS Gel Crossmatch Blood Bank Comment 02/25/18 02/25/18 02/25/18 05:00 05:00 05:00 WBC 8.2 RBC 2.97 L Hgb 8.3 L Hct 24.6 L MCV 82.6 MCH 27.8 MCHC 33.7 RDW 19.1 H Plt Count 238 MPV 9.4 Prelim Diff (Auto) Neut % (Auto) Lymph % (Auto) [place] % (Auto) Eos % (Auto) Baso % (Auto) Neut # (Auto) Lymph # (Auto) [place] # (Auto) Eos # (Auto) Baso # (Auto) CBC Comment WBC Differential Total Counted Neutrophils % (Manual) Seg Neuts % (Manual) Band Neutrophils % Band Neuts % (Manual) Lymphocytes % Lymphocytes % (Manual) Monocytes % Monocytes % (Manual) Eosinophils % Eosinophils % (Manual) Basophils % Metamyelocytes % (Man) Neutrophils # (Manual) Abs Neuts (Manual) Metamyelocytes Myelocytes Nucleated RBCs Differential Comment Smudge Cells Toxic Granulation Toxic Vacuolation Dohle Bodies Platelet Estimate Platelet Morphology Plt Morphology Comment Basophilic Stippling Spherocytes Tear Drop Cells Ovalocytes Acanthocytes (Spur) RBC Morph Comment ESR Hematology Comments PT 18.3 H INR 1.8 APTT Fibrinogen Puncture Site Patient Temperature HCO3 Base Excess O2 Saturation ABG pH ABG pCO2 ABG pO2 ABG HCO3 ABG O2 Content ABG Base Excess ABG Carboxyhemoglobin ABG Methemoglobin Stepan Test Hemoglobin Carboxyhemoglobin O2 Delivery Device Liter Flow Vent Setting Inspired O2 Critical Value Sodium 142 Potassium 3.7 Chloride 102 Carbon Dioxide 29.4 Anion Gap 11 BUN 81 H Creatinine 1.49 H Estimated GFR 46 L POC Glucose Random Glucose 210 H Hemoglobin A1c Lactic Acid Calcium 7.8 L Prot Corrected Calcium Phosphorus Magnesium Total Bilirubin Direct Bilirubin Indirect Bilirubin AST ALT Alkaline Phosphatase Ammonia Total Creatine Kinase Troponin I C-Reactive Protein B-Natriuretic Peptide Total Protein Albumin Prealbumin Triglycerides Cholesterol LDL Cholesterol HDL Cholesterol Cholesterol/HDL Ratio Thiamine Vitamin B12 Procalcitonin Free T4 TSH 3rd Generation Urine Color Urine Clarity Urine Turbidity Urine pH Ur Specific [place] Urine Protein Urine Glucose (UA) Urine Ketones Urine Occult Blood Urine Nitrate Urine Nitrite Urine Bilirubin Urine Urobilinogen Ur Leukocyte Esterase Urine RBC Urine WBC Urine WBC Clumps Ur Squamous Epith Cells Ur Transition Epith Cell Ur Renal Epithelial Cell Amorphous Sediment Urine Bacteria Hyaline Casts Granular Casts Urine Mucus Micro UA Comment Urine Culture Comments Urine Eosinophils Urine Osmolality Ur Random Creatinine Ur Random Sodium Pleural pH Pleural WBC Pleural Nuc Cells Pleural RBC Pleural Neutrophils Pleural Eosinophils Pleural Lymphocytes Pleural Monocytes Pleural Histocytes Pleural Mesothelial Pleural Total Protein Pleural Amylase Pleural LDH Pleural Glucose Nasal Screen MRSA (PCR) Stl C.difficile Tox PCR St C. diff Tox Epid 027 Vancomycin Trough Random Vancomycin Phenytoin Free Phenytoin LOWELL Screen RPR Blood Type Antibody Screen MTS Gel Crossmatch Blood Bank Comment 02/25/18 02/25/18 02/25/18 05:17 08:27 11:32 WBC RBC Hgb Hct MCV MCH MCHC RDW Plt Count MPV Prelim Diff (Auto) Neut % (Auto) Lymph % (Auto) [place] % (Auto) Eos % (Auto) Baso % (Auto) Neut # (Auto) Lymph # (Auto) [place] # (Auto) Eos # (Auto) Baso # (Auto) CBC Comment WBC Differential Total Counted Neutrophils % (Manual) Seg Neuts % (Manual) Band Neutrophils % Band Neuts % (Manual) Lymphocytes % Lymphocytes % (Manual) Monocytes % Monocytes % (Manual) Eosinophils % Eosinophils % (Manual) Basophils % Metamyelocytes % (Man) Neutrophils # (Manual) Abs Neuts (Manual) Metamyelocytes Myelocytes Nucleated RBCs Differential Comment Smudge Cells Toxic Granulation Toxic Vacuolation Dohle Bodies Platelet Estimate Platelet Morphology Plt Morphology Comment Basophilic Stippling Spherocytes Tear Drop Cells Ovalocytes Acanthocytes (Spur) RBC Morph Comment ESR Hematology Comments PT INR APTT Fibrinogen Puncture Site Patient Temperature HCO3 Base Excess O2 Saturation ABG pH ABG pCO2 ABG pO2 ABG HCO3 ABG O2 Content ABG Base Excess ABG Carboxyhemoglobin ABG Methemoglobin Stepan Test Hemoglobin Carboxyhemoglobin O2 Delivery Device Liter Flow Vent Setting Inspired O2 Critical Value Sodium Potassium Chloride Carbon Dioxide Anion Gap BUN Creatinine Estimated GFR POC Glucose 228 H 250 H 262 H Random Glucose Hemoglobin A1c Lactic Acid Calcium Prot Corrected Calcium Phosphorus Magnesium Total Bilirubin Direct Bilirubin Indirect Bilirubin AST ALT Alkaline Phosphatase Ammonia Total Creatine Kinase Troponin I C-Reactive Protein B-Natriuretic Peptide Total Protein Albumin Prealbumin Triglycerides Cholesterol LDL Cholesterol HDL Cholesterol Cholesterol/HDL Ratio Thiamine Vitamin B12 Procalcitonin Free T4 TSH 3rd Generation Urine Color Urine Clarity Urine Turbidity Urine pH Ur Specific [place] Urine Protein Urine Glucose (UA) Urine Ketones Urine Occult Blood Urine Nitrate Urine Nitrite Urine Bilirubin Urine Urobilinogen Ur Leukocyte Esterase Urine RBC Urine WBC Urine WBC Clumps Ur Squamous Epith Cells Ur Transition Epith Cell Ur Renal Epithelial Cell Amorphous Sediment Urine Bacteria Hyaline Casts Granular Casts Urine Mucus Micro UA Comment Urine Culture Comments Urine Eosinophils Urine Osmolality Ur Random Creatinine Ur Random Sodium Pleural pH Pleural WBC Pleural Nuc Cells Pleural RBC Pleural Neutrophils Pleural Eosinophils Pleural Lymphocytes Pleural Monocytes Pleural Histocytes Pleural Mesothelial Pleural Total Protein Pleural Amylase Pleural LDH Pleural Glucose Nasal Screen MRSA (PCR) Stl C.difficile Tox PCR St C. diff Tox Epid 027 Vancomycin Trough Random Vancomycin Phenytoin Free Phenytoin LOWELL Screen RPR Blood Type Antibody Screen MTS Gel Crossmatch Blood Bank Comment 02/25/18 02/25/18 02/26/18 18:04 19:57 00:08 WBC RBC Hgb Hct MCV MCH MCHC RDW Plt Count MPV Prelim Diff (Auto) Neut % (Auto) Lymph % (Auto) [place] % (Auto) Eos % (Auto) Baso % (Auto) Neut # (Auto) Lymph # (Auto) [place] # (Auto) Eos # (Auto) Baso # (Auto) CBC Comment WBC Differential Total Counted Neutrophils % (Manual) Seg Neuts % (Manual) Band Neutrophils % Band Neuts % (Manual) Lymphocytes % Lymphocytes % (Manual) Monocytes % Monocytes % (Manual) Eosinophils % Eosinophils % (Manual) Basophils % Metamyelocytes % (Man) Neutrophils # (Manual) Abs Neuts (Manual) Metamyelocytes Myelocytes Nucleated RBCs Differential Comment Smudge Cells Toxic Granulation Toxic Vacuolation Dohle Bodies Platelet Estimate Platelet Morphology Plt Morphology Comment Basophilic Stippling Spherocytes Tear Drop Cells Ovalocytes Acanthocytes (Spur) RBC Morph Comment ESR Hematology Comments PT INR APTT Fibrinogen Puncture Site Patient Temperature HCO3 Base Excess O2 Saturation ABG pH ABG pCO2 ABG pO2 ABG HCO3 ABG O2 Content ABG Base Excess ABG Carboxyhemoglobin ABG Methemoglobin Stepan Test Hemoglobin Carboxyhemoglobin O2 Delivery Device Liter Flow Vent Setting Inspired O2 Critical Value Sodium Potassium Chloride Carbon Dioxide Anion Gap BUN Creatinine Estimated GFR POC Glucose 227 H 223 H 250 H Random Glucose Hemoglobin A1c Lactic Acid Calcium Prot Corrected Calcium Phosphorus Magnesium Total Bilirubin Direct Bilirubin Indirect Bilirubin AST ALT Alkaline Phosphatase Ammonia Total Creatine Kinase Troponin I C-Reactive Protein B-Natriuretic Peptide Total Protein Albumin Prealbumin Triglycerides Cholesterol LDL Cholesterol HDL Cholesterol Cholesterol/HDL Ratio Thiamine Vitamin B12 Procalcitonin Free T4 TSH 3rd Generation Urine Color Urine Clarity Urine Turbidity Urine pH Ur Specific [place] Urine Protein Urine Glucose (UA) Urine Ketones Urine Occult Blood Urine Nitrate Urine Nitrite Urine Bilirubin Urine Urobilinogen Ur Leukocyte Esterase Urine RBC Urine WBC Urine WBC Clumps Ur Squamous Epith Cells Ur Transition Epith Cell Ur Renal Epithelial Cell Amorphous Sediment Urine Bacteria Hyaline Casts Granular Casts Urine Mucus Micro UA Comment Urine Culture Comments Urine Eosinophils Urine Osmolality Ur Random Creatinine Ur Random Sodium Pleural pH Pleural WBC Pleural Nuc Cells Pleural RBC Pleural Neutrophils Pleural Eosinophils Pleural Lymphocytes Pleural Monocytes Pleural Histocytes Pleural Mesothelial Pleural Total Protein Pleural Amylase Pleural LDH Pleural Glucose Nasal Screen MRSA (PCR) Stl C.difficile Tox PCR St C. diff Tox Epid 027 Vancomycin Trough Random Vancomycin Phenytoin Free Phenytoin LOWELL Screen RPR Blood Type Antibody Screen MTS Gel Crossmatch Blood Bank Comment 02/26/18 02/26/18 02/26/18 03:29 06:02 11:42 WBC RBC Hgb Hct MCV MCH MCHC RDW Plt Count MPV Prelim Diff (Auto) Neut % (Auto) Lymph % (Auto) [place] % (Auto) Eos % (Auto) Baso % (Auto) Neut # (Auto) Lymph # (Auto) [place] # (Auto) Eos # (Auto) Baso # (Auto) CBC Comment WBC Differential Total Counted Neutrophils % (Manual) Seg Neuts % (Manual) Band Neutrophils % Band Neuts % (Manual) Lymphocytes % Lymphocytes % (Manual) Monocytes % Monocytes % (Manual) Eosinophils % Eosinophils % (Manual) Basophils % Metamyelocytes % (Man) Neutrophils # (Manual) Abs Neuts (Manual) Metamyelocytes Myelocytes Nucleated RBCs Differential Comment Smudge Cells Toxic Granulation Toxic Vacuolation Dohle Bodies Platelet Estimate Platelet Morphology Plt Morphology Comment Basophilic Stippling Spherocytes Tear Drop Cells Ovalocytes Acanthocytes (Spur) RBC Morph Comment ESR Hematology Comments PT 19.4 H INR 1.9 APTT Fibrinogen Puncture Site Patient Temperature HCO3 Base Excess O2 Saturation ABG pH ABG pCO2 ABG pO2 ABG HCO3 ABG O2 Content ABG Base Excess ABG Carboxyhemoglobin ABG Methemoglobin Stepan Test Hemoglobin Carboxyhemoglobin O2 Delivery Device Liter Flow Vent Setting Inspired O2 Critical Value Sodium Potassium Chloride Carbon Dioxide Anion Gap BUN Creatinine Estimated GFR POC Glucose 196 H 210 H Random Glucose Hemoglobin A1c Lactic Acid Calcium Prot Corrected Calcium Phosphorus Magnesium Total Bilirubin Direct Bilirubin Indirect Bilirubin AST ALT Alkaline Phosphatase Ammonia Total Creatine Kinase Troponin I C-Reactive Protein B-Natriuretic Peptide Total Protein Albumin Prealbumin Triglycerides Cholesterol LDL Cholesterol HDL Cholesterol Cholesterol/HDL Ratio Thiamine Vitamin B12 Procalcitonin Free T4 TSH 3rd Generation Urine Color Urine Clarity Urine Turbidity Urine pH Ur Specific [place] Urine Protein Urine Glucose (UA) Urine Ketones Urine Occult Blood Urine Nitrate Urine Nitrite Urine Bilirubin Urine Urobilinogen Ur Leukocyte Esterase Urine RBC Urine WBC Urine WBC Clumps Ur Squamous Epith Cells Ur Transition Epith Cell Ur Renal Epithelial Cell Amorphous Sediment Urine Bacteria Hyaline Casts Granular Casts Urine Mucus Micro UA Comment Urine Culture Comments Urine Eosinophils Urine Osmolality Ur Random Creatinine Ur Random Sodium Pleural pH Pleural WBC Pleural Nuc Cells Pleural RBC Pleural Neutrophils Pleural Eosinophils Pleural Lymphocytes Pleural Monocytes Pleural Histocytes Pleural Mesothelial Pleural Total Protein Pleural Amylase Pleural LDH Pleural Glucose Nasal Screen MRSA (PCR) Stl C.difficile Tox PCR St C. diff Tox Epid 027 Vancomycin Trough Random Vancomycin Phenytoin Free Phenytoin LOWELL Screen RPR Blood Type Antibody Screen MTS Gel Crossmatch Blood Bank Comment 02/26/18 02/26/18 02/26/18 17:14 20:13 23:50 WBC RBC Hgb Hct MCV MCH MCHC RDW Plt Count MPV Prelim Diff (Auto) Neut % (Auto) Lymph % (Auto) [place] % (Auto) Eos % (Auto) Baso % (Auto) Neut # (Auto) Lymph # (Auto) [place] # (Auto) Eos # (Auto) Baso # (Auto) CBC Comment WBC Differential Total Counted Neutrophils % (Manual) Seg Neuts % (Manual) Band Neutrophils % Band Neuts % (Manual) Lymphocytes % Lymphocytes % (Manual) Monocytes % Monocytes % (Manual) Eosinophils % Eosinophils % (Manual) Basophils % Metamyelocytes % (Man) Neutrophils # (Manual) Abs Neuts (Manual) Metamyelocytes Myelocytes Nucleated RBCs Differential Comment Smudge Cells Toxic Granulation Toxic Vacuolation Dohle Bodies Platelet Estimate Platelet Morphology Plt Morphology Comment Basophilic Stippling Spherocytes Tear Drop Cells Ovalocytes Acanthocytes (Spur) RBC Morph Comment ESR Hematology Comments PT INR APTT Fibrinogen Puncture Site Patient Temperature HCO3 Base Excess O2 Saturation ABG pH ABG pCO2 ABG pO2 ABG HCO3 ABG O2 Content ABG Base Excess ABG Carboxyhemoglobin ABG Methemoglobin Stepan Test Hemoglobin Carboxyhemoglobin O2 Delivery Device Liter Flow Vent Setting Inspired O2 Critical Value Sodium Potassium Chloride Carbon Dioxide Anion Gap BUN Creatinine Estimated GFR POC Glucose 202 H 219 H 210 H Random Glucose Hemoglobin A1c Lactic Acid Calcium Prot Corrected Calcium Phosphorus Magnesium Total Bilirubin Direct Bilirubin Indirect Bilirubin AST ALT Alkaline Phosphatase Ammonia Total Creatine Kinase Troponin I C-Reactive Protein B-Natriuretic Peptide Total Protein Albumin Prealbumin Triglycerides Cholesterol LDL Cholesterol HDL Cholesterol Cholesterol/HDL Ratio Thiamine Vitamin B12 Procalcitonin Free T4 TSH 3rd Generation Urine Color Urine Clarity Urine Turbidity Urine pH Ur Specific [place] Urine Protein Urine Glucose (UA) Urine Ketones Urine Occult Blood Urine Nitrate Urine Nitrite Urine Bilirubin Urine Urobilinogen Ur Leukocyte Esterase Urine RBC Urine WBC Urine WBC Clumps Ur Squamous Epith Cells Ur Transition Epith Cell Ur Renal Epithelial Cell Amorphous Sediment Urine Bacteria Hyaline Casts Granular Casts Urine Mucus Micro UA Comment Urine Culture Comments Urine Eosinophils Urine Osmolality Ur Random Creatinine Ur Random Sodium Pleural pH Pleural WBC Pleural Nuc Cells Pleural RBC Pleural Neutrophils Pleural Eosinophils Pleural Lymphocytes Pleural Monocytes Pleural Histocytes Pleural Mesothelial Pleural Total Protein Pleural Amylase Pleural LDH Pleural Glucose Nasal Screen MRSA (PCR) Stl C.difficile Tox PCR St C. diff Tox Epid 027 Vancomycin Trough Random Vancomycin Phenytoin Free Phenytoin LOWELL Screen RPR Blood Type Antibody Screen MTS Gel Crossmatch Blood Bank Comment 02/27/18 02/27/18 02/27/18 03:53 03:53 03:53 WBC 7.5 RBC 3.09 L Hgb 8.3 L Hct 25.5 L MCV 82.5 MCH 27.0 MCHC 32.7 RDW 20.0 H Plt Count 242 MPV 9.1 Prelim Diff (Auto) Neut % (Auto) Lymph % (Auto) [place] % (Auto) Eos % (Auto) Baso % (Auto) Neut # (Auto) Lymph # (Auto) [place] # (Auto) Eos # (Auto) Baso # (Auto) CBC Comment WBC Differential Total Counted Neutrophils % (Manual) Seg Neuts % (Manual) Band Neutrophils % Band Neuts % (Manual) Lymphocytes % Lymphocytes % (Manual) Monocytes % Monocytes % (Manual) Eosinophils % Eosinophils % (Manual) Basophils % Metamyelocytes % (Man) Neutrophils # (Manual) Abs Neuts (Manual) Metamyelocytes Myelocytes Nucleated RBCs Differential Comment Smudge Cells Toxic Granulation Toxic Vacuolation Dohle Bodies Platelet Estimate Platelet Morphology Plt Morphology Comment Basophilic Stippling Spherocytes Tear Drop Cells Ovalocytes Acanthocytes (Spur) RBC Morph Comment ESR Hematology Comments PT 19.4 H INR 1.9 APTT Fibrinogen Puncture Site Patient Temperature HCO3 Base Excess O2 Saturation ABG pH ABG pCO2 ABG pO2 ABG HCO3 ABG O2 Content ABG Base Excess ABG Carboxyhemoglobin ABG Methemoglobin Stepan Test Hemoglobin Carboxyhemoglobin O2 Delivery Device Liter Flow Vent Setting Inspired O2 Critical Value Sodium 139 Potassium 3.4 L Chloride 101 Carbon Dioxide 30.4 Anion Gap 8 BUN 77 H Creatinine 1.49 H Estimated GFR 46 L POC Glucose Random Glucose 158 H Hemoglobin A1c Lactic Acid Calcium 7.4 L* Prot Corrected Calcium 7.7 L Phosphorus Magnesium Total Bilirubin Direct Bilirubin Indirect Bilirubin AST ALT Alkaline Phosphatase Ammonia Total Creatine Kinase Troponin I C-Reactive Protein B-Natriuretic Peptide Total Protein 6.5 Albumin Prealbumin Triglycerides Cholesterol LDL Cholesterol HDL Cholesterol Cholesterol/HDL Ratio Thiamine Vitamin B12 Procalcitonin Free T4 TSH 3rd Generation Urine Color Urine Clarity Urine Turbidity Urine pH Ur Specific [place] Urine Protein Urine Glucose (UA) Urine Ketones Urine Occult Blood Urine Nitrate Urine Nitrite Urine Bilirubin Urine Urobilinogen Ur Leukocyte Esterase Urine RBC Urine WBC Urine WBC Clumps Ur Squamous Epith Cells Ur Transition Epith Cell Ur Renal Epithelial Cell Amorphous Sediment Urine Bacteria Hyaline Casts Granular Casts Urine Mucus Micro UA Comment Urine Culture Comments Urine Eosinophils Urine Osmolality Ur Random Creatinine Ur Random Sodium Pleural pH Pleural WBC Pleural Nuc Cells Pleural RBC Pleural Neutrophils Pleural Eosinophils Pleural Lymphocytes Pleural Monocytes Pleural Histocytes Pleural Mesothelial Pleural Total Protein Pleural Amylase Pleural LDH Pleural Glucose Nasal Screen MRSA (PCR) Stl C.difficile Tox PCR St C. diff Tox Epid 027 Vancomycin Trough Random Vancomycin Phenytoin Free Phenytoin LOWELL Screen RPR Blood Type Antibody Screen MTS Gel Crossmatch Blood Bank Comment 02/27/18 02/27/18 02/27/18 05:05 12:54 17:58 WBC RBC Hgb Hct MCV MCH MCHC RDW Plt Count MPV Prelim Diff (Auto) Neut % (Auto) Lymph % (Auto) [place] % (Auto) Eos % (Auto) Baso % (Auto) Neut # (Auto) Lymph # (Auto) [place] # (Auto) Eos # (Auto) Baso # (Auto) CBC Comment WBC Differential Total Counted Neutrophils % (Manual) Seg Neuts % (Manual) Band Neutrophils % Band Neuts % (Manual) Lymphocytes % Lymphocytes % (Manual) Monocytes % Monocytes % (Manual) Eosinophils % Eosinophils % (Manual) Basophils % Metamyelocytes % (Man) Neutrophils # (Manual) Abs Neuts (Manual) Metamyelocytes Myelocytes Nucleated RBCs Differential Comment Smudge Cells Toxic Granulation Toxic Vacuolation Dohle Bodies Platelet Estimate Platelet Morphology Plt Morphology Comment Basophilic Stippling Spherocytes Tear Drop Cells Ovalocytes Acanthocytes (Spur) RBC Morph Comment ESR Hematology Comments PT INR APTT Fibrinogen Puncture Site Patient Temperature HCO3 Base Excess O2 Saturation ABG pH ABG pCO2 ABG pO2 ABG HCO3 ABG O2 Content ABG Base Excess ABG Carboxyhemoglobin ABG Methemoglobin Stepan Test Hemoglobin Carboxyhemoglobin O2 Delivery Device Liter Flow Vent Setting Inspired O2 Critical Value Sodium Potassium Chloride Carbon Dioxide Anion Gap BUN Creatinine Estimated GFR POC Glucose 192 H 184 H 198 H Random Glucose Hemoglobin A1c Lactic Acid Calcium Prot Corrected Calcium Phosphorus Magnesium Total Bilirubin Direct Bilirubin Indirect Bilirubin AST ALT Alkaline Phosphatase Ammonia Total Creatine Kinase Troponin I C-Reactive Protein B-Natriuretic Peptide Total Protein Albumin Prealbumin Triglycerides Cholesterol LDL Cholesterol HDL Cholesterol Cholesterol/HDL Ratio Thiamine Vitamin B12 Procalcitonin Free T4 TSH 3rd Generation Urine Color Urine Clarity Urine Turbidity Urine pH Ur Specific [place] Urine Protein Urine Glucose (UA) Urine Ketones Urine Occult Blood Urine Nitrate Urine Nitrite Urine Bilirubin Urine Urobilinogen Ur Leukocyte Esterase Urine RBC Urine WBC Urine WBC Clumps Ur Squamous Epith Cells Ur Transition Epith Cell Ur Renal Epithelial Cell Amorphous Sediment Urine Bacteria Hyaline Casts Granular Casts Urine Mucus Micro UA Comment Urine Culture Comments Urine Eosinophils Urine Osmolality Ur Random Creatinine Ur Random Sodium Pleural pH Pleural WBC Pleural Nuc Cells Pleural RBC Pleural Neutrophils Pleural Eosinophils Pleural Lymphocytes Pleural Monocytes Pleural Histocytes Pleural Mesothelial Pleural Total Protein Pleural Amylase Pleural LDH Pleural Glucose Nasal Screen MRSA (PCR) Stl C.difficile Tox PCR St C. diff Tox Epid 027 Vancomycin Trough Random Vancomycin Phenytoin Free Phenytoin LOWELL Screen RPR Blood Type Antibody Screen MTS Gel Crossmatch Blood Bank Comment 02/28/18 02/28/18 00:33 07:10 WBC RBC Hgb Hct MCV MCH MCHC RDW Plt Count MPV Prelim Diff (Auto) Neut % (Auto) Lymph % (Auto) [place] % (Auto) Eos % (Auto) Baso % (Auto) Neut # (Auto) Lymph # (Auto) [place] # (Auto) Eos # (Auto) Baso # (Auto) CBC Comment WBC Differential Total Counted Neutrophils % (Manual) Seg Neuts % (Manual) Band Neutrophils % Band Neuts % (Manual) Lymphocytes % Lymphocytes % (Manual) Monocytes % Monocytes % (Manual) Eosinophils % Eosinophils % (Manual) Basophils % Metamyelocytes % (Man) Neutrophils # (Manual) Abs Neuts (Manual) Metamyelocytes Myelocytes Nucleated RBCs Differential Comment Smudge Cells Toxic Granulation Toxic Vacuolation Dohle Bodies Platelet Estimate Platelet Morphology Plt Morphology Comment Basophilic Stippling Spherocytes Tear Drop Cells Ovalocytes Acanthocytes (Spur) RBC Morph Comment ESR Hematology Comments PT INR APTT Fibrinogen Puncture Site Patient Temperature HCO3 Base Excess O2 Saturation ABG pH ABG pCO2 ABG pO2 ABG HCO3 ABG O2 Content ABG Base Excess ABG Carboxyhemoglobin ABG Methemoglobin Stepan Test Hemoglobin Carboxyhemoglobin O2 Delivery Device Liter Flow Vent Setting Inspired O2 Critical Value Sodium Potassium Chloride Carbon Dioxide Anion Gap BUN Creatinine Estimated GFR POC Glucose 174 H 175 H Random Glucose Hemoglobin A1c Lactic Acid Calcium Prot Corrected Calcium Phosphorus Magnesium Total Bilirubin Direct Bilirubin Indirect Bilirubin AST ALT Alkaline Phosphatase Ammonia Total Creatine Kinase Troponin I C-Reactive Protein B-Natriuretic Peptide Total Protein Albumin Prealbumin Triglycerides Cholesterol LDL Cholesterol HDL Cholesterol Cholesterol/HDL Ratio Thiamine Vitamin B12 Procalcitonin Free T4 TSH 3rd Generation Urine Color Urine Clarity Urine Turbidity Urine pH Ur Specific [place] Urine Protein Urine Glucose (UA) Urine Ketones Urine Occult Blood Urine Nitrate Urine Nitrite Urine Bilirubin Urine Urobilinogen Ur Leukocyte Esterase Urine RBC Urine WBC Urine WBC Clumps Ur Squamous Epith Cells Ur Transition Epith Cell Ur Renal Epithelial Cell Amorphous Sediment Urine Bacteria Hyaline Casts Granular Casts Urine Mucus Micro UA Comment Urine Culture Comments Urine Eosinophils Urine Osmolality Ur Random Creatinine Ur Random Sodium Pleural pH Pleural WBC Pleural Nuc Cells Pleural RBC Pleural Neutrophils Pleural Eosinophils Pleural Lymphocytes Pleural Monocytes Pleural Histocytes Pleural Mesothelial Pleural Total Protein Pleural Amylase Pleural LDH Pleural Glucose Nasal Screen MRSA (PCR) Stl C.difficile Tox PCR St C. diff Tox Epid 027 Vancomycin Trough Random Vancomycin Phenytoin Free Phenytoin LOWELL Screen RPR Blood Type Antibody Screen MTS Gel Crossmatch Blood Bank Comment Microbiology 02/26/18 19:29 Blood - Peripheral Aerobic Blood Culture - Preliminary No growth in 1 day 02/26/18 19:29 Blood - Peripheral Anaerobic Blood Culture - Preliminary No growth in 1 day 02/26/18 19:20 Blood - Peripheral Aerobic Blood Culture - Preliminary No growth in 1 day 02/26/18 19:20 Blood - Peripheral Anaerobic Blood Culture - Preliminary No growth in 1 day 02/23/18 14:00 Sputum - Endotracheal Gram Stain - Final 02/23/18 14:00 Sputum - Endotracheal Sputum Culture - Final Pseudomonas aeruginosa Multidrug Resistant 02/19/18 17:00 Wound - Leg Gram Stain - Final 02/19/18 17:00 Wound - Leg Wound Culture - Final Pseudomonas aeruginosa 02/08/18 13:15 Blood - Peripheral Blood Fungal Culture - Preliminary No growth in 2 weeks 02/08/18 13:15 Blood - Peripheral Blood Fungal Culture - Final 02/11/18 13:40 Blood - Peripheral Aerobic Blood Culture - Final No growth in 5 days 02/11/18 13:40 Blood - Peripheral Anaerobic Blood Culture - Final No growth in 5 days 02/11/18 13:46 Blood - Peripheral Aerobic Blood Culture - Final No growth in 5 days 02/11/18 13:46 Blood - Peripheral Anaerobic Blood Culture - Final No growth in 5 days 01/04/18 12:45 Fluid - Pleural fluid Acid Fast Bacilli Smear - Final No acid fast bacilli seen 01/04/18 12:45 Fluid - Pleural fluid Mycobacterial Culture - Final No growth in 6 weeks 01/03/18 17:00 Fluid - Pleural fluid Acid Fast Bacilli Smear - Final No acid fast bacilli seen 01/03/18 17:00 Fluid - Pleural fluid Mycobacterial Culture - Final No growth in 6 weeks 02/08/18 10:24 Blood - Peripheral Aerobic Blood Culture - Final No growth in 5 days 02/08/18 10:24 Blood - Peripheral Anaerobic Blood Culture - Final No growth in 5 days 02/08/18 13:10 Blood - Peripheral Aerobic Blood Culture - Final No growth in 5 days 02/08/18 13:10 Blood - Peripheral Anaerobic Blood Culture - Final QNS - See aerobic report. 02/08/18 12:00 Sputum - Endotracheal Gram Stain - Final 02/08/18 12:00 Sputum - Endotracheal Sputum Culture - Final Klebsiella pneumoniae 02/08/18 12:00 Catheterized Urine Urine Culture - Final No growth in 48 hours 01/29/18 07:25 Blood - Peripheral Aerobic Blood Culture - Final No growth in 5 days 01/29/18 07:25 Blood - Peripheral Anaerobic Blood Culture - Final No growth in 5 days 01/29/18 07:15 Blood - Peripheral Aerobic Blood Culture - Final No growth in 5 days 01/29/18 07:15 Blood - Peripheral Anaerobic Blood Culture - Final No growth in 5 days 01/03/18 17:00 Fluid - Pleural fluid Fungal Smear - Final No fungal elements seen 01/03/18 17:00 Fluid - Pleural fluid Fungal Culture - Final No growth in 4 weeks 01/26/18 11:35 Blood - Peripheral Aerobic Blood Culture - Final No growth in 5 days 01/26/18 11:35 Blood - Peripheral Anaerobic Blood Culture - Final No growth in 5 days 01/26/18 11:45 Blood - Peripheral Aerobic Blood Culture - Final No growth in 5 days 01/26/18 11:45 Blood - Peripheral Anaerobic Blood Culture - Final No growth in 5 days 01/28/18 23:15 Catheterized Urine Urine Culture - Final No growth in 48 hours 01/26/18 09:16 Sputum - Tracheal Aspirate Gram Stain - Final 01/26/18 09:16 Sputum - Tracheal Aspirate Sputum Culture - Final Stenotrophomonas maltophilia 01/27/18 06:00 Catheterized Urine Urine Culture - Final No growth in 48 hours 01/23/18 18:30 Sputum - Endotracheal Gram Stain - Final 01/23/18 18:30 Sputum - Endotracheal Sputum Culture - Final Stenotrophomonas maltophilia 01/20/18 13:15 Blood - Peripheral Aerobic Blood Culture - Final No growth in 5 days 01/20/18 13:15 Blood - Peripheral Anaerobic Blood Culture - Final No growth in 5 days 01/20/18 13:20 Blood - Peripheral Aerobic Blood Culture - Final No growth in 5 days 01/20/18 13:20 Blood - Peripheral Anaerobic Blood Culture - Final No growth in 5 days 01/16/18 13:15 Blood - Peripheral Aerobic Blood Culture - Final No growth in 5 days 01/16/18 13:15 Blood - Peripheral Anaerobic Blood Culture - Final No growth in 5 days 01/16/18 13:05 Blood - Peripheral Aerobic Blood Culture - Final No growth in 5 days 01/16/18 13:05 Blood - Peripheral Anaerobic Blood Culture - Final No growth in 5 days 01/17/18 00:23 Catheterized Urine Urine Culture - Final Pseudomonas aeruginosa Escherichia coli ESBL positive 01/11/18 06:55 Blood - Peripheral Aerobic Blood Culture - Final Xenia tropicalis 01/11/18 06:55 Blood - Peripheral Anaerobic Blood Culture - Final No growth in 5 days 01/11/18 07:00 Blood - Peripheral Aerobic Blood Culture - Final No growth in 5 days 01/11/18 07:00 Blood - Peripheral Anaerobic Blood Culture - Final No growth in 5 days 01/09/18 12:25 Blood - Peripheral Aerobic Blood Culture - Final No growth in 5 days 01/09/18 12:25 Blood - Peripheral Anaerobic Blood Culture - Final No growth in 5 days 01/09/18 12:15 Blood - Peripheral Aerobic Blood Culture - Final Xenia tropicalis 01/09/18 12:15 Blood - Peripheral Anaerobic Blood Culture - Final No growth in 5 days 01/10/18 20:15 Catheterized Urine Urine Culture - Final No growth in 48 hours 01/09/18 10:25 Catheterized Urine Urine Culture - Final No growth in 48 hours 01/02/18 18:34 Blood - Peripheral Aerobic Blood Culture - Final No growth in 5 days 01/02/18 18:34 Blood - Peripheral Anaerobic Blood Culture - Final No growth in 5 days 01/02/18 18:20 Blood - Peripheral Aerobic Blood Culture - Final No growth in 5 days 01/02/18 18:20 Blood - Peripheral Anaerobic Blood Culture - Final No growth in 5 days 01/04/18 12:45 Fluid - Pleural fluid Gram Stain - Final 01/04/18 12:45 Fluid - Pleural fluid Body Fluid Culture - Final No growth in 72 hours (aerobically and anaerobically ) 01/03/18 17:00 Fluid - Pleural fluid Gram Stain - Final 01/03/18 17:00 Fluid - Pleural fluid Body Fluid Culture - Final 01/01/18 16:31 Sputum - Endotracheal Gram Stain - Final 01/01/18 16:31 Sputum - Endotracheal Sputum Culture - Final Klebsiella pneumoniae Escherichia coli ESBL positive 12/31/17 22:58 Catheterized Urine Urine Culture - Final Escherichia coli ESBL positive 12/30/17 17:00 Fluid - Other Gram Stain - Final 12/30/17 17:00 Fluid - Other Body Fluid Culture - Final Escherichia coli ESBL positive Imaging: Chest X-Ray 12/30/17 06:00 CONCLUSION: Stable severity bilateral mid and lower lung pleural effusions and consolidation. Chest X-Ray 12/31/17 00:00 CONCLUSION: Tracheostomy in good position. Otherwise no change compared with exam from earlier today. Chest X-Ray 12/31/17 07:38 CONCLUSION: Worsening lung opacity characteristic of increasing consolidation and pleural fluid accumulation. Head MRI 01/02/18 00:00 CONCLUSION: 1. 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 2. Cerebral atrophy and chronic ischemic small vessel vasculopathy. Chest CT 01/03/18 00:00 CONCLUSION: 1. Large bilateral pleural effusions occupying more than half of the right and left hemithorax. Chest X-Ray 01/03/18 06:00 CONCLUSION: 1. No significant interval change. 2. Stable bilateral pleural effusions and associated lower lobe airspace disease. Chest X-Ray 01/03/18 17:11 CONCLUSION: Small caliber chest tube right base with decreasing right-sided effusion. There is no evidence of pneumothorax. Chest X-Ray 01/04/18 07:41 CONCLUSION: No significant change compared to prior day No evidence of pneumothorax. Persistent small right pleural effusion and moderate left pleural effusion And bilateral airspace disease again noted. Chest X-Ray 01/04/18 13:34 CONCLUSION: 1. Right-sided thoracostomy tube is again seen. Small right-sided effusion/ basilar atelectasis. 2. Interval placement of a left-sided cochlear thoracostomy tube with marked improvement in previously seen left-sided effusion. Minimal left basilar atelectasis. 3. No pneumothorax. Stable position of tracheostomy tube. Chest X-Ray 01/05/18 06:00 CONCLUSION: 1. No significant interval change. 2. Stable bilateral chest tubes with mild residual lower lung zone pleural- parenchymal opacities. Chest X-Ray 01/09/18 15:48 CONCLUSION: Cardiomegaly and findings of congestive heart failure. There has been no significant change when compared to the prior exam. Abdomen/Pelvis CT 01/13/18 00:00 CONCLUSION: 1. Small bilateral pleural effusions and basilar infiltrates with bilateral chest tubes in place. 2. No evidence of ascites or bowel dilatation. Chest X-Ray 01/13/18 00:00 CONCLUSION: Decrease opacity in the lung bases following chest tube placement indicative of pleural fluid evacuation. No evidence of pneumothorax. Bilateral diffuse patchy airspace disease Abdomen/Bladder Ultrasound 01/15/18 00:00 CONCLUSION: 1. Negative renal sonogram. Chest X-Ray 01/17/18 06:00 CONCLUSION: 1. Tracheostomy tube may have been called back slightly. Suggest residual inspection 2. Bilateral cochlear thoracostomy tubes are stable in position. There may be slight increase in the right-sided pleural effusion, however. 3. Patchy bilateral airspace disease persists. Abdomen X-Ray 01/19/18 00:00 CONCLUSION: Chest X-Ray 01/19/18 00:00 CONCLUSION: 1. No evidence of pneumothorax. 2. Scattered infiltrates consistent with mild pulmonary vascular congestion versus pneumonia. 3. Tiny bilateral pleural effusions. Chest X-Ray 01/22/18 00:00 CONCLUSION: No significant change. Chest X-Ray 01/22/18 06:00 CONCLUSION: 1. Apparent interval removal of left-sided chest tube. 2. Stable right-sided chest tube. 3. Stable bilateral lower lung zone patchy airspace disease and trace left pleural effusion. Chest X-Ray 01/25/18 09:40 CONCLUSION: Slight improved aeration. Abdomen X-Ray 01/26/18 00:00 CONCLUSION: Nonobstructive bowel gas pattern. Chest X-Ray 01/26/18 00:00 CONCLUSION: Stable appearance of the chest. Chest X-Ray 01/28/18 06:00 CONCLUSION: No significant interval change. Chest X-Ray 02/01/18 18:51 CONCLUSION: 1. Minimal improvement of the bilateral pulmonary infiltrates. 2. Small stable bilateral pleural effusions. 3. No evidence of pneumothorax. Abdomen X-Ray 02/08/18 00:00 CONCLUSION: 1. Nonobstructive bowel gas pattern. 2. Gastrostomy tube in the left upper abdominal quadrant Head CT 02/08/18 00:00 CONCLUSION: 1. Stable prominent senescent changes with mild to moderate periventricular ischemic white matter demyelination. 2. No acute intracranial abnormality.. Chest X-Ray 02/08/18 07:51 CONCLUSION: Satisfactory Central line positioning. No complication. Chest X-Ray 02/09/18 00:00 CONCLUSION: No significant change Head MRI 02/10/18 00:00 CONCLUSION: 1. No acute findings. Extensive cortical volume loss. Moderate white matter ischemic changes. No recent infarct. Chest X-Ray 02/10/18 06:00 CONCLUSION: Diffuse increased interstitial markings likely related to diffuse underlying processes such as edema, diffuse infection, or ARDS. Hazy density at the bases likely related to a combination of atelectasis, consolidation and/or effusion. There is a definite mild effusion on the left. Chest X-Ray 02/11/18 06:00 CONCLUSION: Diffuse consolidation likely related to edema. Mild bilateral pleural effusions being worse on the left. Chest X-Ray 02/21/18 16:02 CONCLUSION: Suspected diffuse edema. Mild bilateral pleural effusions. Chest X-Ray 02/24/18 06:00 CONCLUSION: No significant change. Chest X-Ray 02/27/18 00:00 CONCLUSION: Bilateral parenchymal consolidation and pleural effusions. Objective Remarks: GENERAL: Patient is 77 yo encephalopathic, unresponsive on the vent. Eyes are closed. SKIN: Warm and dry. Stage IV sacral decubitus, surrounding buttocks excoriation. HEAD: Normocephalic. Tongue moist. EYES: No scleral icterus. No injection. PRABHA. NECK: Cuffed tracheostomy tube in place 6.0. Moderate secretions persist. CARDIOVASCULAR: normal rate, regular rhythm. S1, S2. No S4. No JVD. RESPIRATORY: Diminished breath sounds in the bases bilaterally. Persistent scattered rhonchi anteriorly and posteriorly GASTROINTESTINAL: Abdomen soft. PEG tube site clean and dry MUSCULOSKELETAL: No cyanosis. Generalized edema. NEURO: Eyes are closed. Unresponsive to stimulation in all 4 limbs. Weak cough reflex. Assessment and Plan - Assessment and Plan Plan: Assessment: Asystole/Cardiac arrest Worsening encephalopathy most likely anoxia contributing Aspiration pneumonia Acute on chronic hypoxemic and hypercapnic resp failure Combined shock, septic and cardiogenic Healthcare associated pneumonia, stenotrophomonas now with multidrug resistant Klebsiella pneumonia Candidemia -treated UTI with ESBL E. coli CVA Anemia requiring transfusion Sacral decubitus ulcer s/p NSTEMI Optic neuritis Status post tracheostomy and PEG tube placement Acute protein calorie malnutrition- severe Acute kidney injury Hypokalemia Plan: Impression: Neuro -Acute worsening of encephalopathy secondary to systolic cardiac arrest, anoxia -CT head 02/08/[address] Pereira reconsulted per family request -History of L ENID infarct. Status post systemic TPA on November 09 -Neuropsychology has followed. Continue with methylphenidate 10 mg twice daily -Optic neuritis. Status post treatment with IV hydrocortisone -Remains unresponsive. CV: -Asystole/cardiac arrest seems secondary to hypoxia and hypercapnia from severe aspiration -s/p IV fluid normal saline 2 L bolus, 2U PRBC -half-normal saline discontinued 02/28 along with furosemide 40 mg twice daily. Continue free water flushes at 300 mL every 6 -Continue warfarin currently 1 mg daily as per pharmacy's recommendation -Echo 10/19: LV systolic function is moderately reduced, EF 40-45%. Cardiology has followed Dr. Hernández -Doxazosin 2mg daily and carvedilol 3.125mg BID on hold due to hypotension. On atorvastatin 80mg qhs -As needed Midrin 10 every 8 as needed Pulm: -Cardiac arrest seems to be secondary to respiratory arrest. Evidence of aspiration at the time of arrest -Cuff less tracheostomy tube removed and new Shiley 8 cuffed tracheostomy placed 02/08/18 -PRVC/AC ventilation. Albuterol/ipratropium every 6 hours while awake scheduled and albuterol aerosols every 2 hours as needed -Failed CPAP due to apnea -ICU vent bundle. Pulm toilet, trach care. GI -Currently tube feeds at goal with vital 1.5 at 60 cc an hour. continue as tolerated. -On famotidine 10mg BID -Free water flushes 300 mils every 6 hours -Having BMs on polyethylene glycol 17 g daily -Tube feeds with vital 1.5 at 60 mL's per hour 02/12. Continue with hydrocortisone suppository twice daily [id number] 1% per rectal every 6 hours ordered Renal/: -Monitor renal function, electrolytes replacement per protocol ID -Patient was receiving levofloxacin for stenotrophomonas, fluconazole for candidemia -Added meropenem 02/08/18 for previous ESBL E. coli HCAP. Currently on ceftazidime 1.25 g every 12 hours -Previous UTI with ESBL E. coli, Previous healthcare associated pneumonia with Klebsiella and ESBL E. coli -ID Dr. Jalloh following Skin -Sacral wound-Seen by Plastic surgery; debridement declined per patient's family -Wound care is following- apply dressings per wound management recommendations Heme: -Status post 2 units PRBC on 02/08/2018 now s/p additional 2 units prbc on 02/23 for recurrent anemia. -Previous GI bleed; Status post EGD colonoscopy. GI has signed off, patient with healed rectal ulcers and hemorrhoids. -INR currently 1.9.d pending Endo -On SSI with R insulin with 8 units given in the past 24 hours. Insulin detemir 30 units twice daily for glycemic control GI prophylaxis- on famotidine DVT prophylaxis- On warfarin and adjusted per pharmacy consultation. A.m. INR pending Overall impression: Patient remains critically ill after aspiration with hypoxemic and hypercarbic respiratory failure leading to asystolic cardiac arrest. Ten minutes of CPR with return of spontaneous circulation after aggressive resuscitation following CPR, patient remains hypoxemic and encephalopathy. Remains unresponsive, weak respiratory effort is ineffective during spontaneous trials, unable to begin weaning from ventilator. Prognosis remains poor. Family unrealistic with goals of care and press on for aggressive measures. no meaningful improvements in months.
[2018-02-28] MEDS: Insulin Detemir Inj 1,000 UNIT/10 ML Vial SQ SCH ×2 (09:05→20:40)
[2018-02-28] MEDS: Polyethylene Glycol 3350 17 GM Packet PO SCH (09:05)
[2018-02-28] MEDS: Famotidine 20 MG Tablet PO SCH ×2 (09:06→20:20)
[2018-02-28] MEDS: Hydrocortisone Acetate 25 MG Supp RECTAL SCH ×2 (09:06→20:21)
[2018-02-28] MEDS: Collagenase Oint 30 GM Tube TOPICAL SCH (09:07)
[2018-02-28] MEDS: Hypromellose 0.3% Opth Gel 10 GM Bottle EACH EYE SCH ×2 (09:12→20:20)
[2018-02-28] MEDS: Ceftazidime/Avibactam Inj 1.25 GM in Sodium Chlor 0.9% Inj 50 ML IV.SIG SCH ×2 (09:12→20:21)
[2018-02-28 10:24] LABS: Magnesium 2.2 mg/dL (1.5-2.5); Phosphorus 3.1 mg/dL (2.5-4.9)
--- NOTE | 2018-02-28 15:28 | P.PN ---
Subjective Interval history: unresponsive on vent support Physical Exam Vital signs: Vital Signs 02/27/18 16:00 02/27/18 16:28 02/27/18 18:00 Temperature 97.5 F L Pulse Rate 95 H 90 Respiratory Rate 32 H 28 H Blood Pressure 131/60 Pulse Oximetry 96 96 02/27/18 20:00 02/27/18 20:15 02/27/18 22:00 Temperature 97.3 F L Pulse Rate 85 85 Respiratory Rate 23 21 Blood Pressure 118/59 L Pulse Oximetry 96 96 02/27/18 23:37 02/28/18 00:00 02/28/18 02:00 Temperature 97.0 F L Pulse Rate 83 80 Respiratory Rate 22 17 Blood Pressure 108/58 L Pulse Oximetry 98 99 02/28/18 04:00 02/28/18 06:00 02/28/18 07:54 Temperature 97.0 F L Pulse Rate 80 80 Respiratory Rate 19 24 Blood Pressure 138/86 Pulse Oximetry 96 95 02/28/18 08:00 02/28/18 08:43 02/28/18 10:00 Temperature 98.2 F Pulse Rate 82 81 80 Respiratory Rate 14 26 H Blood Pressure 134/66 Pulse Oximetry 95 02/28/18 11:40 02/28/18 12:00 02/28/18 13:26 Temperature 97.9 F Pulse Rate 84 77 Respiratory Rate 26 H 30 H 23 Blood Pressure 128/66 Pulse Oximetry 96 95 02/28/18 14:00 02/28/18 14:45 Temperature Pulse Rate 83 Respiratory Rate 23 Blood Pressure Pulse Oximetry 94 L Intake & Output 02/27/18 02/28/18 02/28/18 18:59 06:59 18:59 Intake Total 1607 / 1607 1250 / 1250 356 / 356 Output Total 2750 / 2750 2400 / 2400 Balance -1143 / -1143 -1150 / -1150 356 / 356 Intake: IV 50 / 50 356 / 356 1/2 Normal Saline Inj 1,000 ML 0 / 0 256 / 256 @ 75 mls/hr IV.CONT .[id number] EDE Rx#:[id number] Avycaz Inj 1.25 GM In NS Inj 50 50 / 50 100 / 100 ML @ 25 mls/hr IV.SIG Q12HR EDE Rx#:[id number] Tube Feeding 757 / 757 650 / 650 Tube Irrigant 200 / 200 Water Bolus Amount 600 / 600 600 / 600 Output: Stool 400 / 400 200 / 200 Urine Amount (Catheter) 2349 / 0 2199 / 2199 Indwelling Urethral Catheter 2349 Other: Date of Last Bowel Movement 02/27/18 02/27/18 Narrative: GENERAL:on vent support male patient, UNRESPONSIVE. . SKIN: Warm and dry. +sacral decub per wound care notes. HEAD: Atraumatic. Normocephalic. EYES: Pupils equal and round. No scleral icterus. No injection or drainage. ENT: No nasal bleeding or discharge. Mucous membranes pink and moist. NECK: Trachea midline. Trach in place. CARDIOVASCULAR: Regular rate and rhythm. RESPIRATORY: No accessory muscle use. Clear to auscultation. Breath sounds equal bilaterally. GASTROINTESTINAL: Abdomen soft, non-tender, nondistended. PEG in place. GENITOURINARY: [place] in place - placed 01/21 MUSCULOSKELETAL: Extremities without clubbing, cyanosis, or edema. NEUROLOGICAL: Awake. Unable to follow commands. Nonverbal. PSYCHIATRIC: Calm. - Urinary Catheter Management Straight Cath placed during this visit: yes Urethral indwelling: Yes Reason for continuing: Acute urinary retention Insertion date: 01/21/18 Insertion time: 08:00 Indwelling Urethral Catheter Cath placed during this visit: yes, but has since been removed by the nurse Urethral indwelling: Yes Reason for continuing: Terminally ill/Comfort care Insertion date: 01/21/18 Insertion time: 16:18 Removal date: 01/20/18 Removal time: 15:15 Results - Labs CBC & Chem 7: 02/27/18 03:53 02/27/18 03:53 Laboratory Results - last 24 hr 02/27/18 02/28/18 02/28/18 17:58 00:33 07:10 POC Glucose 198 H 174 H 175 H Phosphorus Magnesium 02/28/18 02/28/18 09:39 11:47 POC Glucose 170 H Phosphorus 3.1 Magnesium 2.2 Microbiology 02/26/18 19:29 Blood - Peripheral Aerobic Blood Culture - Preliminary No growth in 2 days 02/26/18 19:29 Blood - Peripheral Anaerobic Blood Culture - Preliminary No growth in 2 days 02/26/18 19:20 Blood - Peripheral Aerobic Blood Culture - Preliminary No growth in 2 days 02/26/18 19:20 Blood - Peripheral Anaerobic Blood Culture - Preliminary No growth in 2 days Assessment and Plan - Plan RESPIRATORY FAILURE S/P cva S/P GA S/P trach plan VENT SUPPORT PULM TOILET ANTIBX PER ID OUTLOOK POOR
--- NOTE | 2018-02-28 15:31 | P.PNID ---
Subjective Remarks: remains on vent, tolerates CPAP 40% growing MDRO pseudomonas spp fro sputum as well minimal responsiveness RN reports a lot of secretions hypothermic 96.1 today Antibiotics: avycaz Lines: PIV Lines ok Past Medical History: reviewed Allergies/Adverse Reactions: Allergies Glucerna 1.5 Adverse Reaction (Uncoded 02/09/18 12:04) Vomiting Objective Vital Signs 02/27/18 16:00 02/27/18 16:28 02/27/18 18:00 Temperature 97.5 F L Pulse Rate 95 H 90 Respiratory Rate 32 H 28 H Blood Pressure 131/60 Pulse Oximetry 96 96 02/27/18 20:00 02/27/18 20:15 02/27/18 22:00 Temperature 97.3 F L Pulse Rate 85 85 Respiratory Rate 23 21 Blood Pressure 118/59 L Pulse Oximetry 96 96 02/27/18 23:37 02/28/18 00:00 02/28/18 02:00 Temperature 97.0 F L Pulse Rate 83 80 Respiratory Rate 22 17 Blood Pressure 108/58 L Pulse Oximetry 98 99 02/28/18 04:00 02/28/18 06:00 02/28/18 07:54 Temperature 97.0 F L Pulse Rate 80 80 Respiratory Rate 19 24 Blood Pressure 138/86 Pulse Oximetry 96 95 02/28/18 08:00 02/28/18 08:43 02/28/18 10:00 Temperature 98.2 F Pulse Rate 82 81 80 Respiratory Rate 14 26 H Blood Pressure 134/66 Pulse Oximetry 95 02/28/18 11:40 02/28/18 12:00 02/28/18 13:26 Temperature 97.9 F Pulse Rate 84 77 Respiratory Rate 26 H 30 H 23 Blood Pressure 128/66 Pulse Oximetry 96 95 02/28/18 14:00 02/28/18 14:45 Temperature Pulse Rate 83 Respiratory Rate 23 Blood Pressure Pulse Oximetry 94 L Intake & Output 02/27/18 02/28/18 02/28/18 18:59 06:59 18:59 Intake Total 1607 / 1607 1250 / 1250 356 / 356 Output Total 2750 / 2750 2400 / 2400 Balance -1143 / -1143 -1150 / -1150 356 / 356 Intake: IV 50 / 50 356 / 356 1/2 Normal Saline Inj 1,000 ML 0 / 0 256 / 256 @ 75 mls/hr IV.CONT .[id number] [facility] Rx#:[id number] Avycaz Inj 1.25 GM In NS Inj 50 50 / 50 100 / 100 ML @ 25 mls/hr IV.SIG Q12HR [facility] Rx#:[id number] Tube Feeding 757 / 757 650 / 650 Tube Irrigant 200 / 200 Water Bolus Amount 600 / 600 600 / 600 Output: Stool 400 / 400 200 / 200 Urine Amount (Catheter) 2350 / 2350 2200 / 2200 Indwelling Urethral Catheter 2350 / 2350 2200 / 2200 Other: Date of Last Bowel Movement 02/27/18 02/27/18 02/26/18 19:29 Blood - Peripheral Aerobic Blood Culture - Preliminary No growth in 2 days 02/26/18 19:29 Blood - Peripheral Anaerobic Blood Culture - Preliminary No growth in 2 days 02/26/18 19:20 Blood - Peripheral Aerobic Blood Culture - Preliminary No growth in 2 days 02/26/18 19:20 Blood - Peripheral Anaerobic Blood Culture - Preliminary No growth in 2 days 02/23/18 14:00 Sputum - Endotracheal Gram Stain - Final 02/23/18 14:00 Sputum - Endotracheal Sputum Culture - Final Pseudomonas aeruginosa Multidrug Resistant Lab - Hematology Results 02/27/18 03:53 WBC 7.5 RBC 3.09 L Hgb 8.3 L Hct 25.5 L MCV 82.5 MCH 27.0 MCHC 32.7 RDW 20.0 H Plt Count 242 MPV 9.1 Lab - Chemistry Results 02/26/18 02/26/18 02/26/18 17:14 20:13 23:50 Sodium Potassium Chloride Carbon Dioxide Anion Gap BUN Creatinine Estimated GFR POC Glucose 202 H 219 H 210 H Random Glucose Calcium Prot Corrected Calcium Phosphorus Magnesium Total Protein 02/27/18 02/27/18 02/27/18 03:53 05:05 12:54 Sodium 139 Potassium 3.4 L Chloride 101 Carbon Dioxide 30.4 Anion Gap 8 BUN 77 H Creatinine 1.49 H Estimated GFR 46 L POC Glucose 192 H 184 H Random Glucose 158 H Calcium 7.4 L* Prot Corrected Calcium 7.7 L Phosphorus Magnesium Total Protein 6.5 02/27/18 02/28/18 02/28/18 17:58 00:33 07:10 Sodium Potassium Chloride Carbon Dioxide Anion Gap BUN Creatinine Estimated GFR POC Glucose 198 H 174 H 175 H Random Glucose Calcium Prot Corrected Calcium Phosphorus Magnesium Total Protein 02/28/18 02/28/18 09:39 11:47 Sodium Potassium Chloride Carbon Dioxide Anion Gap BUN Creatinine Estimated GFR POC Glucose 170 H Random Glucose Calcium Prot Corrected Calcium Phosphorus 3.1 Magnesium 2.2 Total Protein Imaging: ITS Impressions Chest CT 01/03/18 00:00 CONCLUSION: 1. Large bilateral pleural effusions occupying more than half of the right and left hemithorax. Abdomen/Pelvis CT 01/13/18 00:00 CONCLUSION: 1. Small bilateral pleural effusions and basilar infiltrates with bilateral chest tubes in place. 2. No evidence of ascites or bowel dilatation. Abdomen/Bladder Ultrasound 01/15/18 00:00 CONCLUSION: 1. Negative renal sonogram. Abdomen X-Ray 02/08/18 00:00 CONCLUSION: 1. Nonobstructive bowel gas pattern. 2. Gastrostomy tube in the left upper abdominal quadrant Head CT 02/08/18 00:00 CONCLUSION: 1. Stable prominent senescent changes with mild to moderate periventricular ischemic white matter demyelination. 2. No acute intracranial abnormality.. Head MRI 02/10/18 00:00 CONCLUSION: 1. No acute findings. Extensive cortical volume loss. Moderate white matter ischemic changes. No recent infarct. Chest X-Ray 02/27/18 00:00 CONCLUSION: Bilateral parenchymal consolidation and pleural effusions. Physical Exam: GENERAL: unresponsive On vent SKIN: Warm and dry. No rash HEAD: Normocephalic. EYES: No scleral icterus. No injection or drainage. NECK: Supple, trachea midline. + trach in place with large amount of drainage CARDIOVASCULAR: RRR. No murmurs, rubs, gallops RESPIRATORY: Breath sounds equal bilaterally. No accessory muscle use. scattered rhonchi GASTROINTESTINAL: Abdomen soft, non-tender, nondistended. +PEG tube in place MUSCULOSKELETAL: No cyanosis, improved pitting edema. GUl; garcia in place with yellow urine Neuro: obtunded unresponsive no eye contact, not follws commands non vernbal Assessment and Plan - Plan Sacral decub with possible underlying infection, osteomyelitis. growing PSAE S zosyn PNA, HCAP - growing PSAE , MDRO GNR UTI ? ESBL given h/o ESBL. 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 Encephalopathy: strokes in hospital, optic neuritis on presentation. Fungemia, C. tropicalis Hypothermia cont avycaz fu sputum clx , will need extended sensitivities including avycaz, zerbaxa fu repeat blood clx until final dw dgtr @ b/s dw microlab
[2018-03-01] MEDS: Insulin NovoLIN Regular Correctional Sugar Inj SQ SCH ×5 (01:49→23:54)
[2018-03-01 05:00] LABS: Hematocrit 27.2 % (39.0-51.0); Hemoglobin 8.7 gm/dL (13.0-17.0); Mean Corpuscular Hemoglobin 26.6 pg (27.0-34.0); Mean Corpuscular Volume 83.1 fL (80.0-100.0); Platelet Count 263 th/mm3 (150-450); Red Blood Count 3.27 mil/mm3 (4.50-5.90); Red Cell Distribution Width 20.4 % (11.6-17.2); White Blood Count 8.1 th/mm3 (4.0-11.0)
[2018-03-01 05:16] LABS: INR 1.8 Ratio; Prothrombin Time 18.7 sec (9.8-11.6)
[2018-03-01 05:23] LABS: Albumin 0.9 g/dL (3.4-5.0); Calcium 7.6 mg/dL (8.5-10.1); Carbon Dioxide 28.5 meq/L (21.0-32.0); Potassium 3.5 meq/L (3.5-5.1)
[2018-03-01 05:29] LABS: Total Protein 6.9 g/dL (6.4-8.2)
[2018-03-01] MEDS: Ceftazidime/Avibactam Inj 1.25 GM in Sodium Chlor 0.9% Inj 50 ML IV.SIG SCH ×2 (12:20→21:23)
[2018-03-01] MEDS: Famotidine 20 MG Tablet PO SCH ×2 (12:20→21:24)
[2018-03-01] MEDS: Hydrocortisone Acetate 25 MG Supp RECTAL SCH ×2 (12:21→21:25)
[2018-03-01] MEDS: Insulin Detemir Inj 1,000 UNIT/10 ML Vial SQ SCH ×2 (12:21→21:34)
[2018-03-01] MEDS: Polyethylene Glycol 3350 17 GM Packet PO SCH (12:22)
[2018-03-01] MEDS: Collagenase Oint 30 GM Tube TOPICAL SCH (12:22)
--- NOTE | 2018-03-01 13:43 | P.PNCC ---
Subjective Subjective Remarks/Hospital Course: This is a 77-year-old male who initially presented with vision changes and concern for optic neuritis versus temporal arteritis. His initial presentation was on 10/14. His hospital course has been complicated by an NSTEMI with troponins which peaked at 10, ESBL E. coli urinary tract infection, rectal bleeding suspected from bleeding hemorrhoids, acute anemia secondary to blood loss with hemoglobin started around 14 and is trended down to 9.7 this morning. On his initial MRA he was found to have significant atherosclerotic cerebrovascular disease in all vascular territories. Today, he had an acute mental status change and was obtunded. Rapid response and stroke alert was called. His initial NIH stroke scale was 22. Dr. goldstein had conversations with Dr. Ulloa and neurology as well as Dr. sierra with gastroenterology. GI feels comfortable with giving thrombolytics and neurology feels strongly that this patient would benefit from systemic IV TPA therapy. I evaluated the patient on arrival to the intensive care unit. The patient is arousable, but very somnolent. He is [place]ian speaking, and it is very difficult to ascertain whether or not he can follow commands. He does move all extremities spontaneously, although it appears that his left side is weaker than his right. He has noted facial droop. CT head is negative for acute hemorrhage. CTA head neck is significant for the same multivessel cerebrovascular disease that was present on admission. Given the high-risk nature of the stroke as well as his acute anemia this hospitalization, in preparation for giving emergent IV systemic TPA, I placed an arterial line as well as a large-bore peripheral IV so that we could draw serial labs, monitor his hemoglobin, and give blood products if necessary. I also had an additional discussion with the family where I reconfirmed that their goals were aggressive and they fully understood the significant risk of life-threatening hemorrhage associated with systemic TPA in a patient with new anemia and suspected GI bleeding. The family expressed understanding of his condition and understanding of the heightened risk of life-threatening bleeding, but still urged that we needed to get TPA. Immediately after giving IV TPA, patient had a tonic clonic seizure (witnessed on EEG) and became obtunded with acute hypoxic and hypercarbic respiratory failure and was emergently intubated (see separate procedure note for details). 11/10: remains intubated. encephalopathy persists. hgb stable s/p TPA. ~350cc bloody OG tube output, but this is slowing down. 11/11: more awake. on SBT. follows commands. 11/12: remains extubated. off vasopressors. no changes in mental status. 11/18/17 CCM Reconsult Note Patient was transferred to ICU today after a Halicat was called for AMS, hypoxia , high fever. Apparently patient was lethargic since a.m. in the last hour had been unresponsive and hence Halicat was called. Patient had a fever of 101.4 in a.m., T-max is 101.6. I immediately evaluated the patient in the ICU. Patient is completely unresponsive, oxygen saturation 87% on 4 L nasal cannula. Hypopneic. No response to deep pain. Patient was confirmed to be a full code and I proceeded with endotracheal intubation place him on mechanical ventilation as patient was not protecting airway. More history was obtained from discussion with ID Dr. Jalloh. She indicated patient had been increasingly lethargic with fever and also had urinary retention.She has discontinued Ertapenem, and started on meropenem, vancomycin and micafungin. Cultures have been sent and are pending now. Source of sepsis appears to be aspiration pneumonia versus UTI. Repeat UA and panculture pending at this time. Patient was borderline hypotensive prior to intubation and I have started on Levophed to avoid hypotension post intubation. Receiving 1 L normal saline bolus now, give additional fluid bolus if patient requires continued Levophed will place central line 11/19: remains intubated. holding aggrenox for possible thoracentesis today, but family hesitant to consent with concerns over bleeding risk. Cr remains elevated. discussion with Dr. Bernal, unlikely to benefit currently from draining effusion, so at his recommendation, will proceed with attempted weaning from mechanical ventilation and treat effusion conservatively. 11/20: Overnight /early this a.m. ,the patient was noted to have large amount of rectal bleeding. Aggrenox held since 11/18, 2/2 reintubation. Type and screen ordered. Serial H&H currently be performed. Hemodynamically stable. GI has been reconsulted. Protonix previously given PRN, will schedule BID. Patient was reintubated emergently 11/18, plan for continue CPAP trials. Tube feedings until evaluation by GI. ASA placed on hold , in the setting of GI bleeding. 11/21: EGD and colonoscopy performed yesterday. Patient was noted to be constipated ,disimpacted per GI. Patient noted to have hemorrhoids which was clipped. No further bleeding throughout the night. Chest x-ray showed improvement. CPAP trials initiated this a.m.. ASA 81 mg resumed. 11/22: Patient tolerated CPAP trials approximately 13 hours yesterday. Initiation of tube feeds per GI yesterday, no residuals. This am , family concerned patient not responsive. CT brain , ammonia level and EEG pending. Neurology has been reconsulted. Upon my entering the room, this afternoon, the patient was awake, tracking and squeezing my hand upon commands, with right hand. The patient received 1 u PRBC for Hgb 7.2. Post transfusion CBC pending. Plan for quantification of pleural fluid for possible thoracentesis in a.m.. 11/23: No acute events overnight. Patient remains off all sedation. Noted spontaneous eye opening, tracking following commands squeezing hands right greater than left. Neurology following plan for MRI this a.m., repeat EEG pending. Hemoglobin stable this a.m.. Chest x-ray slight improvement, plan for quantification via ultrasound of pleural effusions for possible thoracentesis today. 3 failed attempts at CPAP trials yesterday. 1548-MRI resulted findings consistent of small areas of acute cortical infarct, new since 11/09/2017. I contacted neurology, Dr. Geronimo informed of results. After Dr. Palma's review of imaging and records, it was determined most likely cardioembolic since is affecting both sides and failure with aspirin and Persantine. Ischemic stroke heparin protocol initiated. Careful review secondary to patient history of GI bleed 11/20, thought to be emanating from hemorrhoid ,however due to poor suboptimal prep, they unable to have optimal visualization per Dr. Jones. 11/24: Late entry note. Patient seen and evaluated 614. No acute events overnight. Patient continues on heparin infusion no active signs of bleeding. PTT within therapeutic range. The patient is less responsive this a.m., spontaneous eye opening, not following my commands. Not moving his extremities spontaneously for me as previously performed yesterday. tube feeds reinitiated. Chest x-ray showed further improvement in aeration of lungs the patient continues on FiO2 of 0.35. Plan for CPAP trials today. 11/25: No acute events overnight. Neurological status unchanged. Spontaneous eye opening patient continues not following any commands. Dr. Geronimo at bedside evaluating patient, no change. Patient tolerated CPAP trials approximately 12 hours yesterday. Tolerating tube feeds. Chest x-ray remains unchanged from yesterday. Hemoccult stool negative. Heparin infusion continued. family at bedside. 11/26: Late entry note. Patient seen at 1240pm. Last night the patient was noted to be continuously hyperglycemic. Levemir added to medication regimen 10 mg/day hemoglobin dropped 2 g/dL in 2 days hemoglobin now 7.7, patient to be transfused 1 unit packed red blood. No obvious signs of bleeding Hemoccult was negative. Patient continues on heparin infusion, patient may require tracheostomy and PEG in the near future . Plan to transition to p.o. anticoagulation post procedures. Neurologically the status is unchanged the patient is opens eyes spontaneously no movement of extremities upon my evaluation. Continued CPAP trials currently greater than 6 hours. 11/27: At 1000am, the patient was noted to have melena, approximated at 150 cc per RN evaluation. Heparin infusion discontinued/placed on hold at 10 AM. Stool for Hemoccult blood sent, GI was contacted and informed of the above events. Stat CT of the abdomen and pelvis with p.o. contrast ordered, results pending. Patient previously had been tolerating trickle feeds at 10 cc an hour with no residuals, after initiation of Reglan 5 mg every 8 hours yesterday. Neurologically the patient status is unchanged. Patient does have spontaneous eye opening but does not follow my commands and does not move extremities. Patient's daughter is at bedside, discussed the above events at which she was present for, she is requesting a repeat colonoscopy. I informed her that a CT of the abdomen and pelvis will be obtained, serial hemoglobin will be evaluated and if needed transfusion will be provided and gastroenterology has been contacted and will determine further management if an invasive procedure is required. Hemoglobin continues to be monitored serially, results pending for 10 AM. The patient received 1 unit packed red blood cells, and current hemoglobin trended overnight 8.9 to 8.2 this a.m., posttransfusion. 11/28: hgb continues to decline despite being off heparin. no additional GI interventions are available at this time. clearly the patient has failed anticoagulation with 2 life-threatening bleeding episodes. Although it is clear he may have additional strokes off anticoagulation, we have clear evidence that we are hurting his overall clinical care with his anticoagulation. I explained this at length to the daughter and medical decision maker. however, she insists that she would rather see him of bleeding rather than have any more strokes , and insists that "we can always keep giving him blood". I explained that blood is not without risk, and there is significant risk to anticoagulation, but she is insistent that he be given anticoagulation to prevent further strokes and she has weighed the risks and benefits after having full informed consent, insists upon us restarting the heparin drip. At her insistence, I have restarted it. In addition, I have counseled her that I do not think he will survive this hospitalization, and he will require tracheostomy for further aggressive care. She states that we are not at "day 14" on the vent, and it is not time for a tracheostomy yet. This is a second intubation and we are certainly at risk for complications from endotracheal intubation, and tracheostomy would be the most appropriate next step for this patient, but the family is refusing until WednesdayDecember 01. 11/29 Patient remains intubated, on no sedation. Afebrile. 11/30 No events overnight. Patient tolerated CPAP for most of day yesterday. Remains on Heparin drip. 12/01 Patient remains intubated tolerated CPAP for several hrs yesterday. s/p CT guided right thoracentesis with removal 500ml pleural fluid. On Heparin drip 12/02 No events overnight. Heparin drip stopped this morning for trach and PEG placement today. Afebrile. 12/03 Patient s/p trach and PEG tube placement yesterday. Had bleeding from around trach and PEG tube insertion sites Heparin drip held last night. s/p transfusion 1u PRBC yesterday Hgb 8.0 this morning. Afebrile. On no sedation. 12/04: Continues to have bruising from PEG tube insertion site. Trach site appears to have stopped. Hemoglobin 7 the same receiving 1 unit FFP and 1 PRBCs. Tube feeds of been resumed. On no sedation. 12/05: Afebrile. No further bleeding noted from the tracheostomy site. Overnight reported by the RN that the PEG tube site continues to bleed Surgicel was placed around the opening, small amount of bleeding still noted. Patient hemoglobin remained 7 patient to be transfused 1 unit PRBC's fibrinogen level pending INR within normal limits. 12/06 Patient s/p transfusion 2u PRBC yesterday Hgb 9.5 this morning from 7.2 last night. No bleeding from trach site however patient still having rectal bleeding. 12/07 No events overnight. On ventilator via trach Hgb 9.8 this morning for colonoscopy today. 12/08: seen and examined around 06:30am. no significant change in mental status. hgb 8.9 this AM. remains on heparin drip at [facility]. 12/09: no improvements or changes. very deconditioned. garcia has remained in without clear indication. had 1 episode of urinary retention, but this is a clear source of infection and an additional serious infection would certainly be life-threatening. 12/10 Patient is now on TP's with 28% FIO2, Afebrile. On Heparin drip. 12/11: remains on t-piece x > 48h. no change in neuro exam. remains on heparin drip with stable hgb 7.8. 12/12: asked to see patient again today by the hospitalist service for change in condition. I have evaluated the patient and he does not clinically appear any different than yesterday. HR actually lower than yesterday. bladder scan suggestive of 600cc retention. patient has had urinary retention before, although has also had multiple hospital acquired urinary tract infections. risk/ benefit at this time would be in favor of serial q6h straight catheterizations. remains hemodynamically stable. some emesis today and evidence of ileus. 12/31 Reconsult for resp distress Patient is 77 yo with chronic resp failure, trach/PEG tube placement, [place] [facility] [place] trach changes to #6 and patient was placed on mechanical ventilation. CXR showed increasing consolidation patient was given Lasix prior to arrival [place] [facility] 01/01 Patient is on ventilator via trach. Afebrile. 01/02 No events overnight. On no drips, Afebrile, CPAP 15/5 with 35% FIO2 overnight. 01/03 Remained on TP breathing comfortably. CXR shows bilateral effusions. Will get CT chest. Give single dose of lasix. ID consulted and following, no fever in 24 hours 01/04: Remains unresponsive, fever trending down. Sputum culture now growing Klebsiella and ESBL E. coli. Urine culture and wound culture also growing ESBL E. coli. Chest tube placed on the right side yesterday with 1.35 L output since placement. Urine output excellent with single dose of Lasix 2.5 L in 24 hours. No fever in 24 hours. Repeat 40 mg IV Lasix [facility] RECONSULT NOTE 02/08/18: Mr. Glynn is a 77-year-old man who is known to our service. In short, he was initially admitted with possible optic neuritis versus temporal arteritis in September. Care complicated by an STEMI, multiple infections with healthcare associated pneumonia UTIs. During hospitalization he also received TPA for Stroke, MRI of the brain performed on 12/24/2017, showed infarction involving the left corpus callosum and splenium of the corpus callosum. The patient had undergone tracheostomy placement. And since last month had been on hospitalist service and off ventilator. He is currently receiving Levaquin for stenotrophomonas infection, Diflucan for candidemia. Apparently patient was noted to aspirate earlier this a.m. At 7250 AM patient was found unresponsive pulseless rhythm asystole and CPR was started. Total 3 amp of epinephrine given. Patient had a cuff less trach with evidence of aspiration, large amount of tube feeds aspirated from tracheostomy tube. This was exchanged for a 8.0 Shiley tracheostomy cuffed. With improved bag and mask ventilation and after 3 epinephrine, 1 amp of calcium, 1 amp of bicarb, patient regained ROSC SUBJ 02/09/18: Remains very critical not on any sedation he is unresponsive eyes are spontaneously open but no tracking. Very slight withdrawal to pain on the upper extremities. CT of the head unremarkable. Currently borderline hypotensive off pressors. Received 2 units of PRBC for hemoglobin 6.6 yesterday. Prognosis remained poor. Neurology consulted per family request 02/10/18: Remains critical with no improvement in neuro status or clinical status. Eyes are spontaneously open but no response to threat no tracking. Neurology consulted MRI and EEG pending at this time. Currently remains on Levophed at 1 mcg/min. Chest x-ray with bilateral infiltrates sputum culture growing GNR. Na 155. Free water flushes and half-normal saline rate increased. 02/11: Remains unresponsive off all sedation. Osmolality slowly returning to baseline. Antibiotics appropriate for organism. Tube feeds tolerated at 50 mL' s per hour. Unable to wean from mechanical ventilation. 02/12: Osmolality slowly returning to baseline. Tube feeds now tolerated at 60 mL's per hour. Unable to wean from mechanical ventilation due to fatigue. 02/13: Placed on spontaneous breathing trial this morning but required 18 of pressure support to maintain an adequate minute volume. Will work from this point and attempt to wean pressure support over the next many days. Will place back on mechanical rate nightly. Anticoagulation is been particularly cumbersome and made more difficult by Diflucan. Will restart Coumadin again this morning as INR is declined to 2.2 02/14: Remains very weak. Essentially unresponsive. Tolerates brief periods of spontaneous breathing trial blood pressure support must be markedly elevated to the 1820 range. State of hydration gradually improving as osmolality declines and serum creatinine improves. Will continue hypotonic solutions IV. 02/15: Remains unresponsive. Continues to fail spontaneous breathing trials due to lack of respiratory effort. Suffers from tachypnea with an efficient small tidal volumes regardless of the amount of pressure support. 02/16: Onset of copious watery diarrhea is contaminating buttock wounds. We will insert a dignity shield system for fecal management. Remains unresponsive to noxious stimulation. He does have a weak cough reflex. 02/17: Patient is weaker on attempts at spontaneous breathing trials today. Patient remains unresponsive. Only reaction is a weak cough to suctioning. 02/18: Patient continues to do poorly on attempts at spontaneous breathing trials. Urine output is improved with diuresis, will follow renal function closely. 02/19: Albumin 1.1, further evidence that the patient is deteriorating. Responds to diuretics but prerenal azotemia quickly develops. 02/20: Ongoing attempts to remove excess soft tissue and pleural water consistently resolved and renal impairment. Unfortunately this is largely caused by his poor nutritional status. Despite sufficient nutritional support he continues to deteriorate clinically. 02/21: no improvements in function. still grossly anasarca. Cr worsening again. hypernatremia persists. 02/22: no changes. intermittently tachycardic. still gently diuresing. outlook poor. 02/23: no improvements. anemic this AM requiring transfusion of prbc. Family refuses to allow the holding of anticoagulation given multiple recent CVA, so anticoagulation will continue despite anemia. remains hypernatremic despite therapy. 02/24: no changes or improvements. HR came down with transfusion of prbc yesterday. 02/25: hgb stable. Cr worsens slightly. metabolic derangements have improved somewhat and sodium improving. no improvement in neurologic status. poor prognosis. 02/26, 02/27: Remains on mech ventilation via trach. No improvement in neuro status. 02/28: A.m. laboratories pending. Afebrile. No new changes overnight. 03/01: Remains on mechanical ventilation via tracheostomy. Neurologically unchanged. Objective Vital Signs / I&O: Vital Signs 02/28/18 13:26 02/28/18 14:00 02/28/18 14:45 Temperature Pulse Rate 77 83 Respiratory Rate 23 23 Blood Pressure Pulse Oximetry 94 L 02/28/18 16:00 02/28/18 18:00 02/28/18 19:32 Temperature 97.9 F Pulse Rate 76 80 77 Respiratory Rate 24 17 Blood Pressure 103/71 Pulse Oximetry 97 97 02/28/18 20:00 02/28/18 22:00 03/01/18 00:00 Temperature 98.2 F 98.1 F Pulse Rate 74 74 73 Respiratory Rate 25 H 16 Blood Pressure 119/63 113/61 Pulse Oximetry 97 99 03/01/18 01:35 03/01/18 02:00 03/01/18 04:00 Temperature 99.0 F Pulse Rate 74 73 Respiratory Rate 20 21 Blood Pressure 128/67 Pulse Oximetry 98 100 03/01/18 04:12 03/01/18 06:00 03/01/18 08:05 Temperature Pulse Rate 74 73 Respiratory Rate 16 17 Blood Pressure Pulse Oximetry 99 98 03/01/18 11:15 Temperature Pulse Rate Respiratory Rate 27 H Blood Pressure Pulse Oximetry 97 Intake & Output 02/28/18 03/01/18 03/01/18 18:59 06:59 18:59 Intake Total 1016 / 1016 1213 / 1213 Output Total 1350 / 1350 1525 / 1525 Balance -334 / -334 -312 / -312 Weight 90.6 kg Intake: IV 356 / 356 50 / 50 1/2 Normal Saline Inj 1,000 ML 256 / 256 @ 75 mls/hr IV.CONT .[id number] EDE Rx#:[id number] Avycaz Inj 1.25 GM In NS Inj 50 100 / 100 50 / 50 ML @ 25 mls/hr IV.SIG Q12HR EDE Rx#:[id number] Oral 0 / 0 Tube Feeding 660 / 660 663 / 663 Tube Irrigant 200 / 200 Water Bolus Amount 300 / 300 Output: Stool 300 / 300 0 / 0 Urine Amount (Catheter) 1050 / 1050 1525 / 1525 Indwelling Urethral Catheter 1050 / 1050 1525 / 1525 Other: Date of Last Bowel Movement 02/27/18 # Bowel Movements 0 # Incontinent Bowel Movements 0 Result Diagrams: 03/01/18 04:48 03/01/18 04:48 Objective Remarks: GENERAL: Patient is 77 yo encephalopathic, unresponsive on the vent. Eyes are closed. SKIN: Warm and dry. Stage IV sacral decubitus, surrounding buttocks excoriation. HEAD: Normocephalic. Tongue moist. EYES: No scleral icterus. No injection. PRABHA. NECK: Cuffed tracheostomy tube in place 6.0. Moderate secretions persist. CARDIOVASCULAR: normal rate, regular rhythm. S1, S2. No S4. No JVD. RESPIRATORY: Diminished breath sounds in the bases bilaterally. Persistent scattered rhonchi anteriorly and posteriorly GASTROINTESTINAL: Abdomen soft. PEG tube site clean and dry MUSCULOSKELETAL: No cyanosis. Generalized edema. NEURO: Eyes are closed. Unresponsive to stimulation in all 4 limbs. Weak cough reflex. Assessment and Plan - Assessment and Plan Plan: Assessment: Asystole/Cardiac arrest Worsening encephalopathy most likely anoxia contributing Aspiration pneumonia Acute on chronic hypoxemic and hypercapnic resp failure Combined shock, septic and cardiogenic Healthcare associated pneumonia, stenotrophomonas now with multidrug resistant Klebsiella pneumonia Candidemia -treated UTI with ESBL E. coli CVA Anemia requiring transfusion Sacral decubitus ulcer s/p NSTEMI Optic neuritis Status post tracheostomy and PEG tube placement Acute protein calorie malnutrition- severe Acute kidney injury Hypokalemia Plan: Impression: Neuro -Acute worsening of encephalopathy secondary to systolic cardiac arrest, anoxia -CT head 02/08/[address] Pereira reconsulted per family request -History of L ENID infarct. Status post systemic TPA on November 09 -Neuropsychology has followed. Continue with methylphenidate 10 mg twice daily -Optic neuritis. Status post treatment with IV hydrocortisone -Remains unresponsive. CV: -Asystole/cardiac arrest seems secondary to hypoxia and hypercapnia from severe aspiration -s/p IV fluid normal saline 2 L bolus, 2U PRBC -half-normal saline discontinued 02/28 along with furosemide 40 mg twice daily. Continue free water flushes at 300 mL every 6 -Continue warfarin currently 1 mg daily as per pharmacy's recommendation -Echo 10/19: LV systolic function is moderately reduced, EF 40-45%. Cardiology has followed Dr. Hernández -Doxazosin 2mg daily and carvedilol 3.125mg BID on hold due to hypotension. On atorvastatin 80mg qhs -As needed Midrin 10 every 8 as needed Pulm: -Cardiac arrest seems to be secondary to respiratory arrest. Evidence of aspiration at the time of arrest -Cuff less tracheostomy tube removed and new Shiley 8 cuffed tracheostomy placed 02/08/18 -PRVC/AC ventilation. Albuterol/ipratropium every 6 hours while awake scheduled and albuterol aerosols every 2 hours as needed -Failed CPAP due to apnea -ICU vent bundle. Pulm toilet, trach care. GI -Currently tube feeds at goal with vital 1.5 at 60 cc an hour. continue as tolerated. -On famotidine 10mg BID -Free water flushes 300 mils every 6 hours -Having BMs on polyethylene glycol 17 g daily -Tube feeds with vital 1.5 at 60 mL's per hour 02/12. Continue with hydrocortisone suppository twice daily [id number] 1% per rectal every 6 hours ordered Renal/: -Monitor renal function, electrolytes replacement per protocol ID -Patient was receiving levofloxacin for stenotrophomonas, fluconazole for candidemia -Added meropenem 02/08/18 for previous ESBL E. coli HCAP. Currently on ceftazidime 1.25 g every 12 hours -Previous UTI with ESBL E. coli, Previous healthcare associated pneumonia with Klebsiella and ESBL E. coli -ID Dr. Jalloh following Skin -Sacral wound-Seen by Plastic surgery; debridement declined per patient's family -Wound care is following- apply dressings per wound management recommendations Heme: -Status post 2 units PRBC on 02/08/2018 now s/p additional 2 units prbc on 02/23 for recurrent anemia. -Previous GI bleed; Status post EGD colonoscopy. GI has signed off, patient with healed rectal ulcers and hemorrhoids. -INR currently 1.9.d pending Endo -On SSI with R insulin with 8 units given in the past 24 hours. Insulin detemir 30 units twice daily for glycemic control GI prophylaxis- on famotidine DVT prophylaxis- On warfarin and adjusted per pharmacy consultation. A.m. INR pending Overall impression: Patient remains critically ill after aspiration with hypoxemic and hypercarbic respiratory failure leading to asystolic cardiac arrest. Ten minutes of CPR with return of spontaneous circulation after aggressive resuscitation following CPR, patient remains hypoxemic and encephalopathy. Remains unresponsive, weak respiratory effort is ineffective during spontaneous trials, unable to begin weaning from ventilator. Prognosis remains poor. Family unrealistic with goals of care and press on for aggressive measures. no meaningful improvements in months.
--- NOTE | 2018-03-01 15:14 | P.PN ---
Subjective Interval history: unresponsive on vent support Physical Exam Vital signs: Vital Signs 02/28/18 16:00 02/28/18 18:00 02/28/18 19:32 Temperature 97.9 F Pulse Rate 76 80 77 Respiratory Rate 24 17 Blood Pressure 103/71 Pulse Oximetry 97 97 02/28/18 20:00 02/28/18 22:00 03/01/18 00:00 Temperature 98.2 F 98.1 F Pulse Rate 74 74 73 Respiratory Rate 25 H 16 Blood Pressure 119/63 113/61 Pulse Oximetry 97 99 03/01/18 01:35 03/01/18 02:00 03/01/18 04:00 Temperature 99.0 F Pulse Rate 74 73 Respiratory Rate 20 21 Blood Pressure 128/67 Pulse Oximetry 98 100 03/01/18 04:12 03/01/18 06:00 03/01/18 08:05 Temperature Pulse Rate 74 73 Respiratory Rate 16 17 Blood Pressure Pulse Oximetry 99 98 03/01/18 11:15 03/01/18 14:04 Temperature Pulse Rate 82 Respiratory Rate 27 H 24 Blood Pressure Pulse Oximetry 97 Intake & Output 02/28/18 03/01/18 03/01/18 18:59 06:59 18:59 Intake Total 1016 / 1016 1213 / 1213 Output Total 1350 / 1350 1525 / 1525 Balance -334 / -334 -312 / -312 Weight 90.6 kg Intake: IV 356 / 356 50 / 50 1/2 Normal Saline Inj 1,000 ML 256 / 256 @ 75 mls/hr IV.CONT .[id number] EDE Rx#:[id number] Avycaz Inj 1.25 GM In NS Inj 50 100 / 100 50 / 50 ML @ 25 mls/hr IV.SIG Q12HR EDE Rx#:[id number] Oral 0 / 0 Tube Feeding 660 / 660 663 / 663 Tube Irrigant 200 / 200 Water Bolus Amount 300 / 300 Output: Stool 300 / 300 0 / 0 Urine Amount (Catheter) 1050 / 1050 1525 / 1525 Indwelling Urethral Catheter 1050 / 1050 1525 / 1525 Other: Date of Last Bowel Movement 02/27/18 # Bowel Movements 0 # Incontinent Bowel Movements 0 Narrative: GENERAL:on vent support male patient, UNRESPONSIVE. . SKIN: Warm and dry. +sacral decub per wound care notes. HEAD: Atraumatic. Normocephalic. EYES: Pupils equal and round. No scleral icterus. No injection or drainage. ENT: No nasal bleeding or discharge. Mucous membranes pink and moist. NECK: Trachea midline. Trach in place. CARDIOVASCULAR: Regular rate and rhythm. RESPIRATORY: No accessory muscle use. Clear to auscultation. Breath sounds equal bilaterally. GASTROINTESTINAL: Abdomen soft, non-tender, nondistended. PEG in place. GENITOURINARY: [place] in place - placed 01/21 MUSCULOSKELETAL: Extremities without clubbing, cyanosis, or edema. NEUROLOGICAL: Awake. Unable to follow commands. Nonverbal. PSYCHIATRIC: Calm. - Urinary Catheter Management Straight Cath placed during this visit: yes Urethral indwelling: Yes Reason for continuing: Acute urinary retention Insertion date: 01/21/18 Insertion time: 08:00 Indwelling Urethral Catheter Cath placed during this visit: yes, but has since been removed by the nurse Urethral indwelling: Yes Reason for continuing: Terminally ill/Comfort care Insertion date: 01/21/18 Insertion time: 16:18 Removal date: 01/20/18 Removal time: 15:15 Results - Labs CBC & Chem 7: 03/01/18 04:48 03/01/18 04:48 Laboratory Results - last 24 hr 02/28/18 02/28/18 03/01/18 17:33 20:29 01:46 WBC RBC Hgb Hct MCV MCH MCHC RDW Plt Count MPV PT INR Sodium Potassium Chloride Carbon Dioxide Anion Gap BUN Creatinine Estimated GFR POC Glucose 140 H 147 H 184 H Random Glucose Calcium Total Bilirubin Direct Bilirubin Indirect Bilirubin AST ALT Alkaline Phosphatase Total Protein Albumin 03/01/18 03/01/18 03/01/18 04:48 04:48 04:48 WBC 8.1 RBC 3.27 L Hgb 8.7 L Hct 27.2 L MCV 83.1 MCH 26.6 L MCHC 32.0 RDW 20.4 H Plt Count 263 MPV 9.0 PT 18.7 H INR 1.8 Sodium 140 Potassium 3.5 Chloride 100 Carbon Dioxide 28.5 Anion Gap 12 BUN 75 H Creatinine 1.40 H Estimated GFR 49 L POC Glucose Random Glucose 192 H Calcium 7.6 L Total Bilirubin 0.3 Direct Bilirubin 0.1 Indirect Bilirubin 0.2 AST 85 H ALT 39 Alkaline Phosphatase 348 H Total Protein 6.9 Albumin 0.9 L 03/01/18 03/01/18 05:16 11:40 WBC RBC Hgb Hct MCV MCH MCHC RDW Plt Count MPV PT INR Sodium Potassium Chloride Carbon Dioxide Anion Gap BUN Creatinine Estimated GFR POC Glucose 210 H 237 H Random Glucose Calcium Total Bilirubin Direct Bilirubin Indirect Bilirubin AST ALT Alkaline Phosphatase Total Protein Albumin Microbiology 02/23/18 14:00 Sputum - Endotracheal Gram Stain - Final 02/23/18 14:00 Sputum - Endotracheal Sputum Culture - Preliminary Pseudomonas aeruginosa Multidrug Resistant 02/08/18 13:15 Blood - Peripheral Blood Fungal Culture - Preliminary No growth in 3 weeks 02/08/18 13:15 Blood - Peripheral Blood Fungal Culture - Final 02/26/18 19:29 Blood - Peripheral Aerobic Blood Culture - Preliminary No growth in 3 days 02/26/18 19:29 Blood - Peripheral Anaerobic Blood Culture - Preliminary No growth in 3 days 02/26/18 19:20 Blood - Peripheral Aerobic Blood Culture - Preliminary No growth in 3 days 02/26/18 19:20 Blood - Peripheral Anaerobic Blood Culture - Preliminary No growth in 3 days Assessment and Plan - Plan RESPIRATORY FAILURE S/P cva S/P CA S/P trach plan VENT SUPPORT PULM TOILET ANTIBX PER ID OUTLOOK POOR
--- NOTE | 2018-03-01 15:37 | P.DIET ---
Nutritional Evaluation Type of nutrition evaluation: follow-up Nutrition consult regarding: Tube Feeding Nutrition screening: Pressure Injury, MDC (01/26 reevaluate tube feedings as patient is vomiting) Screening comments: Transferred to [facility] s/p cardiac arrest and aspiration on 02/08 Subjective Subjective Comments: Vented via trach and unresponsive. Objective - Diagnosis Optic Neuritis - Objective % IBW: 114 (EAL=490#) Body Weight Used for Calculations: Actual (79.6kg) Energy Needs - Lower Range (kCal/kg): 30 Energy Needs - Upper Range (kCal/kg): 35 Lower Limit kCal/kg (kCals): 2,388 Upper Limit kCal/kg (kCals): 2,786 Lower Limit Protein Factor (Grams per Kg): 1.3 Upper Limit Protein Factor (Grams per Kg): 1.6 Lower Protein Needs (Protein): 103 Upper Protein Needs (Protein): 127 Fluid Factor (ml/kg): 30 Estimated Fluid Needs (ml): 2,388 Dietitian Reviewed in Medical Record: Curent medications, Intake & Output, Labs , Tube feeding, Wound/DTI Diet Order: TF Only Wound Care Note: WOCN dated 02/17: sacrum pressure injury Objective Comments: glu 192 Feeding - Current Tube Feeding Tube Feeding Product: Vital 1.5 Tube Feeding Method: Pump Tube Feeding Rate: 60 Tube Feeding Route: gastrostomy Current kCals Provided by Tube Feedin,160 Current Protein Provided by Tube Feeding (gPRO): 97 Current Free H2O Provided (m/l): 1,100 Assessment Assessment: Transferred to [facility] (02/08) d/t cardiac arrest and aspiration. Currently receiving Vital 1.5 @ 60 mls/hr. Recommend Vital 1.5 @ 65 mls/hr to provide 2340 kcals, 105 gms protein and 1192 mls of free water. Labs, wts and clinical course reviewed. Elevated glucose noted: Glucerna 1.5 TF formula is listed under pt's allergies. CBW = 90.6 kg. LBM 02/27 Recommendations: Vital 1.5 @ 65mls/hr goal Please update TF order Dietitian to Monitor: Lab values, Glucose level, Intake & Output, Tube feeding tolerance, Weight change, Wound/skin status, Medical course
[2018-03-01] MEDS: Hypromellose 0.3% Opth Gel 10 GM Bottle EACH EYE SCH ×2 (16:38→21:25)
[2018-03-02] MEDS: Insulin NovoLIN Regular Correctional Sugar Inj SQ SCH ×4 (06:00→23:16)
--- NOTE | 2018-03-02 08:45 | P.PNCC ---
Subjective Subjective Remarks/Hospital Course: This is a 77-year-old male who initially presented with vision changes and concern for optic neuritis versus temporal arteritis. His initial presentation was on 10/14. His hospital course has been complicated by an NSTEMI with troponins which peaked at 10, ESBL E. coli urinary tract infection, rectal bleeding suspected from bleeding hemorrhoids, acute anemia secondary to blood loss with hemoglobin started around 14 and is trended down to 9.7 this morning. On his initial MRA he was found to have significant atherosclerotic cerebrovascular disease in all vascular territories. Today, he had an acute mental status change and was obtunded. Rapid response and stroke alert was called. His initial NIH stroke scale was 22. Dr. goldstein had conversations with Dr. Ulloa and neurology as well as Dr. sierra with gastroenterology. GI feels comfortable with giving thrombolytics and neurology feels strongly that this patient would benefit from systemic IV TPA therapy. I evaluated the patient on arrival to the intensive care unit. The patient is arousable, but very somnolent. He is [place]ic speaking, and it is very difficult to ascertain whether or not he can follow commands. He does move all extremities spontaneously, although it appears that his left side is weaker than his right. He has noted facial droop. CT head is negative for acute hemorrhage. CTA head neck is significant for the same multivessel cerebrovascular disease that was present on admission. Given the high-risk nature of the stroke as well as his acute anemia this hospitalization, in preparation for giving emergent IV systemic TPA, I placed an arterial line as well as a large-bore peripheral IV so that we could draw serial labs, monitor his hemoglobin, and give blood products if necessary. I also had an additional discussion with the family where I reconfirmed that their goals were aggressive and they fully understood the significant risk of life-threatening hemorrhage associated with systemic TPA in a patient with new anemia and suspected GI bleeding. The family expressed understanding of his condition and understanding of the heightened risk of life-threatening bleeding, but still urged that we needed to get TPA. Immediately after giving IV TPA, patient had a tonic clonic seizure (witnessed on EEG) and became obtunded with acute hypoxic and hypercarbic respiratory failure and was emergently intubated (see separate procedure note for details). 11/10: remains intubated. encephalopathy persists. hgb stable s/p TPA. ~350cc bloody OG tube output, but this is slowing down. 11/11: more awake. on SBT. follows commands. 11/12: remains extubated. off vasopressors. no changes in mental status. 11/18/17 CCM Reconsult Note Patient was transferred to ICU today after a Halicat was called for AMS, hypoxia , high fever. Apparently patient was lethargic since a.m. in the last hour had been unresponsive and hence Halicat was called. Patient had a fever of 101.4 in a.m., T-max is 101.6. I immediately evaluated the patient in the ICU. Patient is completely unresponsive, oxygen saturation 87% on 4 L nasal cannula. Hypopneic. No response to deep pain. Patient was confirmed to be a full code and I proceeded with endotracheal intubation place him on mechanical ventilation as patient was not protecting airway. More history was obtained from discussion with ID Dr. Jalloh. She indicated patient had been increasingly lethargic with fever and also had urinary retention.She has discontinued Ertapenem, and started on meropenem, vancomycin and micafungin. Cultures have been sent and are pending now. Source of sepsis appears to be aspiration pneumonia versus UTI. Repeat UA and panculture pending at this time. Patient was borderline hypotensive prior to intubation and I have started on Levophed to avoid hypotension post intubation. Receiving 1 L normal saline bolus now, give additional fluid bolus if patient requires continued Levophed will place central line 11/19: remains intubated. holding aggrenox for possible thoracentesis today, but family hesitant to consent with concerns over bleeding risk. Cr remains elevated. discussion with Dr. Bernal, unlikely to benefit currently from draining effusion, so at his recommendation, will proceed with attempted weaning from mechanical ventilation and treat effusion conservatively. 11/20: Overnight /early this a.m. ,the patient was noted to have large amount of rectal bleeding. Aggrenox held since 11/18, 2/2 reintubation. Type and screen ordered. Serial H&H currently be performed. Hemodynamically stable. GI has been reconsulted. Protonix previously given PRN, will schedule BID. Patient was reintubated emergently 11/18, plan for continue CPAP trials. Tube feedings until evaluation by GI. ASA placed on hold , in the setting of GI bleeding. 11/21: EGD and colonoscopy performed yesterday. Patient was noted to be constipated ,disimpacted per GI. Patient noted to have hemorrhoids which was clipped. No further bleeding throughout the night. Chest x-ray showed improvement. CPAP trials initiated this a.m.. ASA 81 mg resumed. 11/22: Patient tolerated CPAP trials approximately 13 hours yesterday. Initiation of tube feeds per GI yesterday, no residuals. This am , family concerned patient not responsive. CT brain , ammonia level and EEG pending. Neurology has been reconsulted. Upon my entering the room, this afternoon, the patient was awake, tracking and squeezing my hand upon commands, with right hand. The patient received 1 u PRBC for Hgb 7.2. Post transfusion CBC pending. Plan for quantification of pleural fluid for possible thoracentesis in a.m.. 11/23: No acute events overnight. Patient remains off all sedation. Noted spontaneous eye opening, tracking following commands squeezing hands right greater than left. Neurology following plan for MRI this a.m., repeat EEG pending. Hemoglobin stable this a.m.. Chest x-ray slight improvement, plan for quantification via ultrasound of pleural effusions for possible thoracentesis today. 3 failed attempts at CPAP trials yesterday. 1548-MRI resulted findings consistent of small areas of acute cortical infarct, new since 11/09/2017. I contacted neurology, Dr. Geronimo informed of results. After Dr. Palma's review of imaging and records, it was determined most likely cardioembolic since is affecting both sides and failure with aspirin and Persantine. Ischemic stroke heparin protocol initiated. Careful review secondary to patient history of GI bleed 11/20, thought to be emanating from hemorrhoid ,however due to poor suboptimal prep, they unable to have optimal visualization per Dr. Jones. 11/24: Late entry note. Patient seen and evaluated 614. No acute events overnight. Patient continues on heparin infusion no active signs of bleeding. PTT within therapeutic range. The patient is less responsive this a.m., spontaneous eye opening, not following my commands. Not moving his extremities spontaneously for me as previously performed yesterday. tube feeds reinitiated. Chest x-ray showed further improvement in aeration of lungs the patient continues on FiO2 of 0.35. Plan for CPAP trials today. 11/25: No acute events overnight. Neurological status unchanged. Spontaneous eye opening patient continues not following any commands. Dr. Geronimo at bedside evaluating patient, no change. Patient tolerated CPAP trials approximately 12 hours yesterday. Tolerating tube feeds. Chest x-ray remains unchanged from yesterday. Hemoccult stool negative. Heparin infusion continued. family at bedside. 11/26: Late entry note. Patient seen at 1240pm. Last night the patient was noted to be continuously hyperglycemic. Levemir added to medication regimen 10 mg/day hemoglobin dropped 2 g/dL in 2 days hemoglobin now 7.7, patient to be transfused 1 unit packed red blood. No obvious signs of bleeding Hemoccult was negative. Patient continues on heparin infusion, patient may require tracheostomy and PEG in the near future . Plan to transition to p.o. anticoagulation post procedures. Neurologically the status is unchanged the patient is opens eyes spontaneously no movement of extremities upon my evaluation. Continued CPAP trials currently greater than 6 hours. 11/27: At 1000am, the patient was noted to have melena, approximated at 150 cc per RN evaluation. Heparin infusion discontinued/placed on hold at 10 AM. Stool for Hemoccult blood sent, GI was contacted and informed of the above events. Stat CT of the abdomen and pelvis with p.o. contrast ordered, results pending. Patient previously had been tolerating trickle feeds at 10 cc an hour with no residuals, after initiation of Reglan 5 mg every 8 hours yesterday. Neurologically the patient status is unchanged. Patient does have spontaneous eye opening but does not follow my commands and does not move extremities. Patient's daughter is at bedside, discussed the above events at which she was present for, she is requesting a repeat colonoscopy. I informed her that a CT of the abdomen and pelvis will be obtained, serial hemoglobin will be evaluated and if needed transfusion will be provided and gastroenterology has been contacted and will determine further management if an invasive procedure is required. Hemoglobin continues to be monitored serially, results pending for 10 AM. The patient received 1 unit packed red blood cells, and current hemoglobin trended overnight 8.9 to 8.2 this a.m., posttransfusion. 11/28: hgb continues to decline despite being off heparin. no additional GI interventions are available at this time. clearly the patient has failed anticoagulation with 2 life-threatening bleeding episodes. Although it is clear he may have additional strokes off anticoagulation, we have clear evidence that we are hurting his overall clinical care with his anticoagulation. I explained this at length to the daughter and medical decision maker. however, she insists that she would rather see him of bleeding rather than have any more strokes , and insists that "we can always keep giving him blood". I explained that blood is not without risk, and there is significant risk to anticoagulation, but she is insistent that he be given anticoagulation to prevent further strokes and she has weighed the risks and benefits after having full informed consent, insists upon us restarting the heparin drip. At her insistence, I have restarted it. In addition, I have counseled her that I do not think he will survive this hospitalization, and he will require tracheostomy for further aggressive care. She states that we are not at "day 14" on the vent, and it is not time for a tracheostomy yet. This is a second intubation and we are certainly at risk for complications from endotracheal intubation, and tracheostomy would be the most appropriate next step for this patient, but the family is refusing until WednesdayDecember 01. 11/29 Patient remains intubated, on no sedation. Afebrile. 11/30 No events overnight. Patient tolerated CPAP for most of day yesterday. Remains on Heparin drip. 12/01 Patient remains intubated tolerated CPAP for several hrs yesterday. s/p CT guided right thoracentesis with removal 500ml pleural fluid. On Heparin drip 12/02 No events overnight. Heparin drip stopped this morning for trach and PEG placement today. Afebrile. 12/03 Patient s/p trach and PEG tube placement yesterday. Had bleeding from around trach and PEG tube insertion sites Heparin drip held last night. s/p transfusion 1u PRBC yesterday Hgb 8.0 this morning. Afebrile. On no sedation. 12/04: Continues to have bruising from PEG tube insertion site. Trach site appears to have stopped. Hemoglobin 7 the same receiving 1 unit FFP and 1 PRBCs. Tube feeds of been resumed. On no sedation. 12/05: Afebrile. No further bleeding noted from the tracheostomy site. Overnight reported by the RN that the PEG tube site continues to bleed Surgicel was placed around the opening, small amount of bleeding still noted. Patient hemoglobin remained 7 patient to be transfused 1 unit PRBC's fibrinogen level pending INR within normal limits. 12/06 Patient s/p transfusion 2u PRBC yesterday Hgb 9.5 this morning from 7.2 last night. No bleeding from trach site however patient still having rectal bleeding. 12/07 No events overnight. On ventilator via trach Hgb 9.8 this morning for colonoscopy today. 12/08: seen and examined around 06:30am. no significant change in mental status. hgb 8.9 this AM. remains on heparin drip at [facility]. 12/09: no improvements or changes. very deconditioned. garcia has remained in without clear indication. had 1 episode of urinary retention, but this is a clear source of infection and an additional serious infection would certainly be life-threatening. 12/10 Patient is now on TP's with 28% FIO2, Afebrile. On Heparin drip. 12/11: remains on t-piece x > 48h. no change in neuro exam. remains on heparin drip with stable hgb 7.8. 12/12: asked to see patient again today by the hospitalist service for change in condition. I have evaluated the patient and he does not clinically appear any different than yesterday. HR actually lower than yesterday. bladder scan suggestive of 600cc retention. patient has had urinary retention before, although has also had multiple hospital acquired urinary tract infections. risk/ benefit at this time would be in favor of serial q6h straight catheterizations. remains hemodynamically stable. some emesis today and evidence of ileus. 12/31 Reconsult for resp distress Patient is 77 yo with chronic resp failure, trach/PEG tube placement, CVA transferred to [facility] for resp distress trach changes to #6 and patient was placed on mechanical ventilation. CXR showed increasing consolidation patient was given Lasix prior to arrival to [facility]. 01/01 Patient is on ventilator via trach. Afebrile. 01/02 No events overnight. On no drips, Afebrile, CPAP 15/5 with 35% FIO2 overnight. 01/03 Remained on TP breathing comfortably. CXR shows bilateral effusions. Will get CT chest. Give single dose of lasix. ID consulted and following, no fever in 24 hours 01/04: Remains unresponsive, fever trending down. Sputum culture now growing Klebsiella and ESBL E. coli. Urine culture and wound culture also growing ESBL E. coli. Chest tube placed on the right side yesterday with 1.35 L output since placement. Urine output excellent with single dose of Lasix 2.5 L in 24 hours. No fever in 24 hours. Repeat 40 mg IV Lasix [facility] RECONSULT NOTE 02/08/18: Mr. Glynn is a 77-year-old man who is known to our service. In short, he was initially admitted with possible optic neuritis versus temporal arteritis in September. Care complicated by an STEMI, multiple infections with healthcare associated pneumonia UTIs. During hospitalization he also received TPA for Stroke, MRI of the brain performed on 12/24/2017, showed infarction involving the left corpus callosum and splenium of the corpus callosum. The patient had undergone tracheostomy placement. And since last month had been on hospitalist service and off ventilator. He is currently receiving Levaquin for stenotrophomonas infection, Diflucan for candidemia. Apparently patient was noted to aspirate earlier this a.m. At 7250 AM patient was found unresponsive pulseless rhythm asystole and CPR was started. Total 3 amp of epinephrine given. Patient had a cuff less trach with evidence of aspiration, large amount of tube feeds aspirated from tracheostomy tube. This was exchanged for a 8.0 Shiley tracheostomy cuffed. With improved bag and mask ventilation and after 3 epinephrine, 1 amp of calcium, 1 amp of bicarb, patient regained ROSC SUBJ 02/09/18: Remains very critical not on any sedation he is unresponsive eyes are spontaneously open but no tracking. Very slight withdrawal to pain on the upper extremities. CT of the head unremarkable. Currently borderline hypotensive off pressors. Received 2 units of PRBC for hemoglobin 6.6 yesterday. Prognosis remained poor. Neurology consulted per family request 02/10/18: Remains critical with no improvement in neuro status or clinical status. Eyes are spontaneously open but no response to threat no tracking. Neurology consulted MRI and EEG pending at this time. Currently remains on Levophed at 1 mcg/min. Chest x-ray with bilateral infiltrates sputum culture growing GNR. Na 155. Free water flushes and half-normal saline rate increased. 02/11: Remains unresponsive off all sedation. Osmolality slowly returning to baseline. Antibiotics appropriate for organism. Tube feeds tolerated at 50 mL' s per hour. Unable to wean from mechanical ventilation. 02/12: Osmolality slowly returning to baseline. Tube feeds now tolerated at 60 mL's per hour. Unable to wean from mechanical ventilation due to fatigue. 02/13: Placed on spontaneous breathing trial this morning but required 18 of pressure support to maintain an adequate minute volume. Will work from this point and attempt to wean pressure support over the next many days. Will place back on mechanical rate nightly. Anticoagulation is been particularly cumbersome and made more difficult by Diflucan. Will restart Coumadin again this morning as INR is declined to 2.2 02/14: Remains very weak. Essentially unresponsive. Tolerates brief periods of spontaneous breathing trial blood pressure support must be markedly elevated to the 1820 range. State of hydration gradually improving as osmolality declines and serum creatinine improves. Will continue hypotonic solutions IV. 02/15: Remains unresponsive. Continues to fail spontaneous breathing trials due to lack of respiratory effort. Suffers from tachypnea with an efficient small tidal volumes regardless of the amount of pressure support. 02/16: Onset of copious watery diarrhea is contaminating buttock wounds. We will insert a dignity shield system for fecal management. Remains unresponsive to noxious stimulation. He does have a weak cough reflex. 02/17: Patient is weaker on attempts at spontaneous breathing trials today. Patient remains unresponsive. Only reaction is a weak cough to suctioning. 02/18: Patient continues to do poorly on attempts at spontaneous breathing trials. Urine output is improved with diuresis, will follow renal function closely. 02/19: Albumin 1.1, further evidence that the patient is deteriorating. Responds to diuretics but prerenal azotemia quickly develops. 02/20: Ongoing attempts to remove excess soft tissue and pleural water consistently resolved and renal impairment. Unfortunately this is largely caused by his poor nutritional status. Despite sufficient nutritional support he continues to deteriorate clinically. 02/21: no improvements in function. still grossly anasarca. Cr worsening again. hypernatremia persists. 02/22: no changes. intermittently tachycardic. still gently diuresing. outlook poor. 02/23: no improvements. anemic this AM requiring transfusion of prbc. Family refuses to allow the holding of anticoagulation given multiple recent CVA, so anticoagulation will continue despite anemia. remains hypernatremic despite therapy. 02/24: no changes or improvements. HR came down with transfusion of prbc yesterday. 02/25: hgb stable. Cr worsens slightly. metabolic derangements have improved somewhat and sodium improving. no improvement in neurologic status. poor prognosis. 02/26, 02/27: Remains on mech ventilation via trach. No improvement in neuro status. 02/28: A.m. laboratories pending. Afebrile. No new changes overnight. 03/01: Remains on mechanical ventilation via tracheostomy. Neurologically unchanged. 03/02: Remains on mechanical ventilation via tracheostomy. Remains encephalopathic with no change in neurologic status. Objective Vital Signs / I&O: Vital Signs 03/01/18 10:00 03/01/18 11:15 03/01/18 12:00 Temperature 97.0 F L Pulse Rate 78 78 Respiratory Rate 27 H 27 H Blood Pressure 119/62 Pulse Oximetry 97 96 03/01/18 14:00 03/01/18 14:04 03/01/18 15:49 Temperature Pulse Rate 84 82 Respiratory Rate 24 26 H Blood Pressure Pulse Oximetry 99 03/01/18 16:00 03/01/18 17:00 03/01/18 18:00 Temperature 97.2 F L Pulse Rate 88 88 Respiratory Rate 31 H 32 H Blood Pressure 125/63 Pulse Oximetry 98 95 03/01/18 19:00 03/01/18 20:00 03/01/18 22:00 Temperature 97.8 F Pulse Rate 89 89 89 Respiratory Rate 20 19 Blood Pressure 133/71 Pulse Oximetry 96 03/02/18 00:00 03/02/18 00:01 03/02/18 02:00 Temperature 97.8 F Pulse Rate 89 89 Respiratory Rate 15 Blood Pressure Pulse Oximetry 96 03/02/18 03:34 03/02/18 04:00 03/02/18 06:00 Temperature 97.3 F L Pulse Rate 86 86 Respiratory Rate 16 15 Blood Pressure 104/59 L Pulse Oximetry 95 96 03/02/18 08:15 Temperature Pulse Rate Respiratory Rate 29 H Blood Pressure Pulse Oximetry 97 Intake & Output 03/01/18 03/02/18 03/02/18 18:59 06:59 18:59 Intake Total 723 / 723 1346 / 1346 Output Total 1550 / 1550 2226 / 2226 Balance -827 / -827 -880 / -880 Weight 109.5 kg Intake: IV 50 / 50 50 / 50 Avycaz Inj 1.25 GM In NS Inj 50 50 / 50 50 / 50 ML @ 25 mls/hr IV.SIG Q12HR EDE Rx#:[id number] Oral 0 / 0 Tube Feeding 673 / 673 673 / 673 Tube Irrigant 200 / 200 Water Bolus Amount 300 / 300 Other 123 / 123 Output: Urine 675 / 675 Stool 400 / 400 400 / 400 Emesis 1 / Urine Amount (Catheter) 1150 / 1150 1150 / 1150 Indwelling Urethral Catheter 1150 / 1150 1150 / 1150 Other: Post Void Residual 300 # Voids 2 # Incontinent Voids 0 Date of Last Bowel Movement 02/27/18 02/27/18 # Bowel Movements 0 # Incontinent Bowel Movements 0 Result Diagrams: 03/01/18 04:48 03/01/18 04:48 Objective Remarks: GENERAL: Patient is 77 yo encephalopathic, unresponsive on the vent. Eyes are closed. SKIN: Warm and dry. Stage IV sacral decubitus, surrounding buttocks excoriation. HEAD: Normocephalic. Tongue moist. EYES: No scleral icterus. No injection. PRABHA. NECK: Cuffed tracheostomy tube in place 6.0. Moderate secretions persist. CARDIOVASCULAR: normal rate, regular rhythm. S1, S2. No S4. No JVD. RESPIRATORY: Diminished breath sounds in the bases bilaterally. Persistent scattered rhonchi anteriorly and posteriorly GASTROINTESTINAL: Abdomen soft. PEG tube site clean and dry MUSCULOSKELETAL: No cyanosis. Generalized edema. NEURO: Eyes are closed. Unresponsive to stimulation in all 4 limbs. Weak cough reflex. Assessment and Plan - Assessment and Plan Plan: Assessment: Asystole/Cardiac arrest Worsening encephalopathy most likely anoxia contributing Aspiration pneumonia Acute on chronic hypoxemic and hypercapnic resp failure Combined shock, septic and cardiogenic Healthcare associated pneumonia, stenotrophomonas now with multidrug resistant Klebsiella pneumonia Candidemia -treated UTI with ESBL E. coli CVA Anemia requiring transfusion Sacral decubitus ulcer s/p NSTEMI Optic neuritis Status post tracheostomy and PEG tube placement Acute protein calorie malnutrition- severe Acute kidney injury Hypokalemia Plan: Impression: Neuro -Acute worsening of encephalopathy secondary to systolic cardiac arrest, anoxia -CT head 02/08/[address] Pereira reconsulted per family request -History of L ENID infarct. Status post systemic TPA on November 09 -Neuropsychology has followed. Continue with methylphenidate 10 mg twice daily -Optic neuritis. Status post treatment with IV hydrocortisone -Remains unresponsive. CV: -Asystole/cardiac arrest seems secondary to hypoxia and hypercapnia from severe aspiration -s/p IV fluid normal saline 2 L bolus, 2U PRBC -half-normal saline discontinued 02/28 along with furosemide 40 mg twice daily. Continue free water flushes at 300 mL every 6 -Continue warfarin currently 1 mg daily as per pharmacy's recommendation -Echo 10/19: LV systolic function is moderately reduced, EF 40-45%. Cardiology has followed Dr. Hernández -Doxazosin 2mg daily and carvedilol 3.125mg BID on hold due to hypotension. On atorvastatin 80mg qhs -As needed Midrin 10 every 8 as needed Pulm: -Cardiac arrest seems to be secondary to respiratory arrest. Evidence of aspiration at the time of arrest -Cuff less tracheostomy tube removed and new Shiley 8 cuffed tracheostomy placed 02/08/18 -PRVC/AC ventilation. Albuterol/ipratropium every 6 hours while awake scheduled and albuterol aerosols every 2 hours as needed -Failed CPAP due to apnea -ICU vent bundle. Pulm toilet, trach care. GI -Currently tube feeds at goal with vital 1.5 at 60 cc an hour. continue as tolerated. -On famotidine 10mg BID -Free water flushes 300 mils every 6 hours -Having BMs on polyethylene glycol 17 g daily -Tube feeds with vital 1.5 at 60 mL's per hour 02/12. Continue with hydrocortisone suppository twice daily [id number] 1% per rectal every 6 hours ordered Renal/: -Monitor renal function, electrolytes replacement per protocol ID -Patient was receiving levofloxacin for stenotrophomonas, fluconazole for candidemia -Added meropenem 02/08/18 for previous ESBL E. coli HCAP. Currently on ceftazidime 1.25 g every 12 hours -Previous UTI with ESBL E. coli, Previous healthcare associated pneumonia with Klebsiella and ESBL E. coli -ID Dr. Jalloh following Skin -Sacral wound-Seen by Plastic surgery; debridement declined per patient's family -Wound care is following- apply dressings per wound management recommendations Heme: -Status post 2 units PRBC on 02/08/2018 now s/p additional 2 units prbc on 02/23 for recurrent anemia. -Previous GI bleed; Status post EGD colonoscopy. GI has signed off, patient with healed rectal ulcers and hemorrhoids. -INR currently 1.9.d pending Endo -On SSI with R insulin with 8 units given in the past 24 hours. Insulin detemir 30 units twice daily for glycemic control GI prophylaxis- on famotidine DVT prophylaxis- On warfarin and adjusted per pharmacy consultation. A.m. INR pending Overall impression: Patient remains critically ill after aspiration with hypoxemic and hypercarbic respiratory failure leading to asystolic cardiac arrest. Ten minutes of CPR with return of spontaneous circulation after aggressive resuscitation following CPR, patient remains hypoxemic and encephalopathy. Remains unresponsive, weak respiratory effort is ineffective during spontaneous trials, unable to begin weaning from ventilator. Prognosis remains poor. Family unrealistic with goals of care and press on for aggressive measures. no meaningful improvements in months.
[2018-03-02] MEDS: Insulin Detemir Inj 1,000 UNIT/10 ML Vial SQ SCH ×2 (09:11→20:18)
[2018-03-02] MEDS: Polyethylene Glycol 3350 17 GM Packet PO SCH (09:11)
[2018-03-02] MEDS: Famotidine 20 MG Tablet PO SCH ×2 (09:11→20:17)
[2018-03-02] MEDS: Hydrocortisone Acetate 25 MG Supp RECTAL SCH ×2 (09:12→20:16)
[2018-03-02] MEDS: Ceftazidime/Avibactam Inj 1.25 GM in Sodium Chlor 0.9% Inj 50 ML IV.SIG SCH ×2 (09:12→20:16)
[2018-03-02] MEDS: Collagenase Oint 30 GM Tube TOPICAL SCH (09:12)
[2018-03-02] MEDS: Hypromellose 0.3% Opth Gel 10 GM Bottle EACH EYE SCH ×2 (09:12→20:18)
[2018-03-02] MEDS ORDERED: Potassium Chloride 25 MEQ Effervescent Tablet PO ONE (09:30)
--- NOTE | 2018-03-02 15:02 | XR ---
EXAM DATE: 03/02/2018 3:00 PM EDT AGE/SEX: 77 years / Male INDICATIONS: Shortness of breath. CLINICAL DATA: This is the patient's subsequent encounter. Patient reports that signs and symptoms h ave been present for 1 week and indicates a pain score of 0/10. MEDICAL/SURGICAL HISTORY: Chronic obstructive pulmonary disease. Diabetes. Cardiovascular dis ease. Coronary artery stent. COMPARISON: [facility] [place], CHEST 1V SINGLE AP, 02/27/2018. . FINDINGS: A single AP view of the chest demonstrates no interval change. Small bilateral pleural effusions and bilateral pulmonary infiltrates most pronounced within the left base. Heart is at the upper limits of normal in terms of size. Tracheostomy tube. CONCLUSION: No change. Electronically signed by: Reid Parsons MD 03/02/2018 3:01 PM EDT
--- NOTE | 2018-03-02 18:09 | P.PN ---
Subjective Interval history: on vent unresponsive Physical Exam Vital signs: Vital Signs 03/01/18 19:00 03/01/18 20:00 03/01/18 22:00 Temperature 97.8 F Pulse Rate 89 89 89 Respiratory Rate 20 19 Blood Pressure 133/71 Pulse Oximetry 96 03/02/18 00:00 03/02/18 00:01 03/02/18 02:00 Temperature 97.8 F Pulse Rate 89 89 Respiratory Rate 15 Blood Pressure Pulse Oximetry 96 03/02/18 03:34 03/02/18 04:00 03/02/18 06:00 Temperature 97.3 F L Pulse Rate 86 86 Respiratory Rate 16 15 Blood Pressure 104/59 L Pulse Oximetry 95 96 03/02/18 08:00 03/02/18 08:15 03/02/18 10:00 Temperature Pulse Rate 89 88 Respiratory Rate 29 H Blood Pressure Pulse Oximetry 97 03/02/18 12:00 03/02/18 12:12 03/02/18 14:00 Temperature Pulse Rate 84 86 Respiratory Rate 29 H Blood Pressure Pulse Oximetry 100 03/02/18 15:47 03/02/18 16:00 Temperature Pulse Rate 92 H Respiratory Rate 24 Blood Pressure Pulse Oximetry 100 Intake & Output 03/01/18 03/02/18 03/02/18 18:59 06:59 18:59 Intake Total 723 / 723 1346 / 1346 50 / 50 Output Total 1550 / 1550 2226 / 2226 Balance -827 / -827 -880 / -880 50 / 50 Weight 109.5 kg Intake: IV 50 / 50 50 / 50 50 / 50 Avycaz Inj 1.25 GM In NS Inj 50 50 / 50 50 / 50 50 / 50 ML @ 25 mls/hr IV.SIG Q12HR [facility] Rx#:[id number] Oral 0 / 0 Tube Feeding 673 / 673 673 / 673 Tube Irrigant 200 / 200 Water Bolus Amount 300 / 300 Other 123 / 123 Output: Urine 675 / 675 Stool 400 / 400 400 / 400 Emesis 1 / Urine Amount (Catheter) 1150 / 1150 1150 / 1150 Indwelling Urethral Catheter 1150 / 1150 1150 / 1150 Other: Post Void Residual 300 # Voids 2 # Incontinent Voids 0 Date of Last Bowel Movement 02/27/18 02/27/18 02/27/18 # Bowel Movements 0 # Incontinent Bowel Movements 0 Narrative: GENERAL:on vent support male patient, UNRESPONSIVE. . SKIN: Warm and dry. +sacral decub per wound care notes. HEAD: Atraumatic. Normocephalic. EYES: Pupils equal and round. No scleral icterus. No injection or drainage. ENT: No nasal bleeding or discharge. Mucous membranes pink and moist. NECK: Trachea midline. Trach in place. CARDIOVASCULAR: Regular rate and rhythm. RESPIRATORY: No accessory muscle use. Clear to auscultation. Breath sounds equal bilaterally. GASTROINTESTINAL: Abdomen soft, non-tender, nondistended. PEG in place. GENITOURINARY: [place] in place - placed 01/21 MUSCULOSKELETAL: Extremities without clubbing, cyanosis, or edema. NEUROLOGICAL: Awake. Unable to follow commands. Nonverbal. PSYCHIATRIC: Calm. - Urinary Catheter Management Straight Cath placed during this visit: yes Urethral indwelling: Yes Reason for continuing: Acute urinary retention Insertion date: 01/21/18 Insertion time: 08:00 Indwelling Urethral Catheter Cath placed during this visit: yes, but has since been removed by the nurse Urethral indwelling: Yes Reason for continuing: Severe pressure ulcer/wound Insertion date: 01/21/18 Insertion time: 16:18 Removal date: 01/20/18 Removal time: 15:15 Results - Labs CBC & Chem 7: 03/01/18 04:48 03/01/18 04:48 Laboratory Results - last 24 hr 03/01/18 03/02/18 03/02/18 23:49 05:43 08:49 POC Glucose 195 H 205 H 227 H 03/02/18 11:54 POC Glucose 199 H Microbiology 02/23/18 14:00 Sputum - Endotracheal Gram Stain - Final 02/23/18 14:00 Sputum - Endotracheal Sputum Culture - Final Pseudomonas aeruginosa Multidrug Resistant 02/26/18 19:29 Blood - Peripheral Aerobic Blood Culture - Preliminary No growth in 4 days 02/26/18 19:29 Blood - Peripheral Anaerobic Blood Culture - Preliminary No growth in 4 days 02/26/18 19:20 Blood - Peripheral Aerobic Blood Culture - Preliminary No growth in 4 days 02/26/18 19:20 Blood - Peripheral Anaerobic Blood Culture - Preliminary No growth in 4 days - Imaging Impressions Chest X-Ray 03/02/18 14:20 CONCLUSION: No change. Assessment and Plan - Plan RESPIRATORY FAILURE S/P cva S/P [place] S/P trach plan VENT SUPPORT PULM TOILET ANTIBX PER ID OUTLOOK POOR
[2018-03-03 03:58] LABS: Hematocrit 26.3 % (39.0-51.0); Hemoglobin 8.5 gm/dL (13.0-17.0); Mean Corpuscular HGB Conc 32.4 % (32.0-36.0); Mean Corpuscular Hemoglobin 26.8 pg (27.0-34.0); Mean Corpuscular Volume 82.5 fL (80.0-100.0); Mean Platelet Volume 8.9 fL (7.0-11.0); Platelet Count 291 th/mm3 (150-450); Red Blood Count 3.19 mil/mm3 (4.50-5.90); Red Cell Distribution Width 20.5 % (11.6-17.2); White Blood Count 8.6 th/mm3 (4.0-11.0)
[2018-03-03 04:09] LABS: INR 1.6 Ratio; Prothrombin Time 16.1 sec (9.8-11.6)
[2018-03-03 04:34] LABS: Calcium 8.1 mg/dL (8.5-10.1); Carbon Dioxide 29.6 meq/L (21.0-32.0); Potassium 4.4 meq/L (3.5-5.1)
[2018-03-03] MEDS: Insulin NovoLIN Regular Correctional Sugar Inj SQ SCH ×4 (05:37→23:47)
--- NOTE | 2018-03-03 09:11 | P.PN ---
Subjective Interval history: NO CANGE UNRESPONSIVE ON VENT Physical Exam Vital signs: Vital Signs 03/02/18 10:00 03/02/18 12:00 03/02/18 12:12 Temperature 96.8 F L Pulse Rate 88 92 H Respiratory Rate 24 29 H Blood Pressure 119/56 L Pulse Oximetry 97 100 03/02/18 14:00 03/02/18 15:47 03/02/18 16:00 Temperature 96.4 F L Pulse Rate 86 96 H Respiratory Rate 24 22 Blood Pressure 129/76 Pulse Oximetry 100 100 03/02/18 18:00 03/02/18 19:42 03/02/18 19:55 Temperature 97.5 F L Pulse Rate 86 87 87 Respiratory Rate 16 20 Blood Pressure 118/56 L Pulse Oximetry 100 03/02/18 20:00 03/02/18 22:00 03/03/18 00:00 Temperature 97.6 F Pulse Rate 87 87 79 Respiratory Rate 18 Blood Pressure 130/74 Pulse Oximetry 100 03/03/18 00:41 03/03/18 02:00 03/03/18 03:57 Temperature Pulse Rate 79 Respiratory Rate 19 15 Blood Pressure Pulse Oximetry 98 98 03/03/18 04:00 03/03/18 06:00 03/03/18 08:13 Temperature 97.7 F Pulse Rate 80 80 76 Respiratory Rate 24 Blood Pressure 111/64 Pulse Oximetry 100 100 Intake & Output 03/02/18 03/03/18 03/03/18 18:59 06:59 18:59 Intake Total 660 / 660 50 / 50 Output Total 1100 / 1100 1000 / 1000 Balance -440 / -440 -950 / -950 Weight 112.3 kg Intake: IV 50 / 50 50 / 50 Avycaz Inj 1.25 GM In NS Inj 50 50 / 50 50 / 50 ML @ 25 mls/hr IV.SIG Q12HR [facility] Rx#:[id number] Tube Feeding 610 / 610 Output: Urine 1000 / 1000 Stool 100 / 100 Urine Amount (Catheter) 1000 / 1000 Indwelling Urethral Catheter 1000 / 1000 Other: Date of Last Bowel Movement 03/02/18 03/02/18 Narrative: GENERAL:on vent support male patient, UNRESPONSIVE. . SKIN: Warm and dry. +sacral decub per wound care notes. HEAD: Atraumatic. Normocephalic. EYES: Pupils equal and round. No scleral icterus. No injection or drainage. ENT: No nasal bleeding or discharge. Mucous membranes pink and moist. NECK: Trachea midline. Trach in place. CARDIOVASCULAR: Regular rate and rhythm. RESPIRATORY: No accessory muscle use. Clear to auscultation. Breath sounds equal bilaterally. GASTROINTESTINAL: Abdomen soft, non-tender, nondistended. PEG in place. GENITOURINARY: [place] in place - placed 01/21 MUSCULOSKELETAL: Extremities without clubbing, cyanosis, or edema. NEUROLOGICAL: Awake. Unable to follow commands. Nonverbal. PSYCHIATRIC: Calm. - Urinary Catheter Management Straight Cath placed during this visit: yes Urethral indwelling: Yes Reason for continuing: Acute urinary retention Insertion date: 01/21/18 Insertion time: 08:00 Indwelling Urethral Catheter Cath placed during this visit: yes, but has since been removed by the nurse Urethral indwelling: Yes Reason for continuing: Severe pressure ulcer/wound Insertion date: 01/21/18 Insertion time: 16:18 Removal date: 01/20/18 Removal time: 15:15 Results - Labs CBC & Chem 7: 03/03/18 03:46 03/03/18 03:46 Laboratory Results - last 24 hr 03/02/18 03/02/18 03/03/18 11:54 23:05 03:46 WBC 8.6 RBC 3.19 L Hgb 8.5 L Hct 26.3 L MCV 82.5 MCH 26.8 L MCHC 32.4 RDW 20.5 H Plt Count 291 MPV 8.9 PT INR Sodium Potassium Chloride Carbon Dioxide Anion Gap BUN Creatinine Estimated GFR POC Glucose 199 H 212 H Random Glucose Calcium 03/03/18 03/03/18 03/03/18 03:46 03:46 05:15 WBC RBC Hgb Hct MCV MCH MCHC RDW Plt Count MPV PT 16.1 H INR 1.6 Sodium 143 Potassium 4.4 D Chloride 104 Carbon Dioxide 29.6 Anion Gap 9 BUN 73 H Creatinine 1.33 H Estimated GFR 52 L POC Glucose 165 H Random Glucose 149 H Calcium 8.1 L Microbiology 02/23/18 14:00 Sputum - Endotracheal Gram Stain - Final 02/23/18 14:00 Sputum - Endotracheal Sputum Culture - Final Pseudomonas aeruginosa Multidrug Resistant 02/26/18 19:29 Blood - Peripheral Aerobic Blood Culture - Preliminary No growth in 4 days 02/26/18 19:29 Blood - Peripheral Anaerobic Blood Culture - Preliminary No growth in 4 days 02/26/18 19:20 Blood - Peripheral Aerobic Blood Culture - Preliminary No growth in 4 days 02/26/18 19:20 Blood - Peripheral Anaerobic Blood Culture - Preliminary No growth in 4 days - Imaging Impressions Chest X-Ray 03/02/18 14:20 CONCLUSION: No change. Assessment and Plan - Plan RESPIRATORY FAILURE S/P cva S/P [place] S/P trach plan VENT SUPPORT PULM TOILET ANTIBX PER ID OUTLOOK POOR
[2018-03-03] MEDS: Ceftazidime/Avibactam Inj 1.25 GM in Sodium Chlor 0.9% Inj 50 ML IV.SIG SCH ×2 (11:52→21:45)
[2018-03-03] MEDS: Polyethylene Glycol 3350 17 GM Packet PO SCH (11:53)
[2018-03-03] MEDS: Famotidine 20 MG Tablet PO SCH ×2 (11:53→21:45)
[2018-03-03] MEDS: Hydrocortisone Acetate 25 MG Supp RECTAL SCH ×2 (11:54→21:46)
[2018-03-03] MEDS: Insulin Detemir Inj 1,000 UNIT/10 ML Vial SQ SCH ×2 (11:55→21:46)
[2018-03-03] MEDS: Hypromellose 0.3% Opth Gel 10 GM Bottle EACH EYE SCH ×2 (11:55→21:46)
[2018-03-03] MEDS: Collagenase Oint 30 GM Tube TOPICAL SCH (11:55)
--- NOTE | 2018-03-03 13:37 | P.PNCC ---
Subjective Subjective Remarks/Hospital Course: This is a 77-year-old male who initially presented with vision changes and concern for optic neuritis versus temporal arteritis. His initial presentation was on 10/14. His hospital course has been complicated by an NSTEMI with troponins which peaked at 10, ESBL E. coli urinary tract infection, rectal bleeding suspected from bleeding hemorrhoids, acute anemia secondary to blood loss with hemoglobin started around 14 and is trended down to 9.7 this morning. On his initial MRA he was found to have significant atherosclerotic cerebrovascular disease in all vascular territories. Today, he had an acute mental status change and was obtunded. Rapid response and stroke alert was called. His initial NIH stroke scale was 22. Dr. goldstein had conversations with Dr. Ulloa and neurology as well as Dr. sierra with gastroenterology. GI feels comfortable with giving thrombolytics and neurology feels strongly that this patient would benefit from systemic IV TPA therapy. I evaluated the patient on arrival to the intensive care unit. The patient is arousable, but very somnolent. He is Turkish speaking, and it is very difficult to ascertain whether or not he can follow commands. He does move all extremities spontaneously, although it appears that his left side is weaker than his right. He has noted facial droop. CT head is negative for acute hemorrhage. CTA head neck is significant for the same multivessel cerebrovascular disease that was present on admission. Given the high-risk nature of the stroke as well as his acute anemia this hospitalization, in preparation for giving emergent IV systemic TPA, I placed an arterial line as well as a large-bore peripheral IV so that we could draw serial labs, monitor his hemoglobin, and give blood products if necessary. I also had an additional discussion with the family where I reconfirmed that their goals were aggressive and they fully understood the significant risk of life-threatening hemorrhage associated with systemic TPA in a patient with new anemia and suspected GI bleeding. The family expressed understanding of his condition and understanding of the heightened risk of life-threatening bleeding, but still urged that we needed to get TPA. Immediately after giving IV TPA, patient had a tonic clonic seizure (witnessed on EEG) and became obtunded with acute hypoxic and hypercarbic respiratory failure and was emergently intubated (see separate procedure note for details). 11/10: remains intubated. encephalopathy persists. hgb stable s/p TPA. ~350cc bloody OG tube output, but this is slowing down. 11/11: more awake. on SBT. follows commands. 11/12: remains extubated. off vasopressors. no changes in mental status. 11/18/17 CCM Reconsult Note Patient was transferred to ICU today after a Halicat was called for AMS, hypoxia , high fever. Apparently patient was lethargic since a.m. in the last hour had been unresponsive and hence Halicat was called. Patient had a fever of 101.4 in a.m., T-max is 101.6. I immediately evaluated the patient in the ICU. Patient is completely unresponsive, oxygen saturation 87% on 4 L nasal cannula. Hypopneic. No response to deep pain. Patient was confirmed to be a full code and I proceeded with endotracheal intubation place him on mechanical ventilation as patient was not protecting airway. More history was obtained from discussion with ID Dr. Jalloh. She indicated patient had been increasingly lethargic with fever and also had urinary retention.She has discontinued Ertapenem, and started on meropenem, vancomycin and micafungin. Cultures have been sent and are pending now. Source of sepsis appears to be aspiration pneumonia versus UTI. Repeat UA and panculture pending at this time. Patient was borderline hypotensive prior to intubation and I have started on Levophed to avoid hypotension post intubation. Receiving 1 L normal saline bolus now, give additional fluid bolus if patient requires continued Levophed will place central line 11/19: remains intubated. holding aggrenox for possible thoracentesis today, but family hesitant to consent with concerns over bleeding risk. Cr remains elevated. discussion with Dr. Bernal, unlikely to benefit currently from draining effusion, so at his recommendation, will proceed with attempted weaning from mechanical ventilation and treat effusion conservatively. 11/20: Overnight /early this a.m. ,the patient was noted to have large amount of rectal bleeding. Aggrenox held since 11/18, 2/2 reintubation. Type and screen ordered. Serial H&H currently be performed. Hemodynamically stable. GI has been reconsulted. Protonix previously given PRN, will schedule BID. Patient was reintubated emergently 11/18, plan for continue CPAP trials. Tube feedings until evaluation by GI. ASA placed on hold , in the setting of GI bleeding. 11/21: EGD and colonoscopy performed yesterday. Patient was noted to be constipated ,disimpacted per GI. Patient noted to have hemorrhoids which was clipped. No further bleeding throughout the night. Chest x-ray showed improvement. CPAP trials initiated this a.m.. ASA 81 mg resumed. 11/22: Patient tolerated CPAP trials approximately 13 hours yesterday. Initiation of tube feeds per GI yesterday, no residuals. This am , family concerned patient not responsive. CT brain , ammonia level and EEG pending. Neurology has been reconsulted. Upon my entering the room, this afternoon, the patient was awake, tracking and squeezing my hand upon commands, with right hand. The patient received 1 u PRBC for Hgb 7.2. Post transfusion CBC pending. Plan for quantification of pleural fluid for possible thoracentesis in a.m.. 11/23: No acute events overnight. Patient remains off all sedation. Noted spontaneous eye opening, tracking following commands squeezing hands right greater than left. Neurology following plan for MRI this a.m., repeat EEG pending. Hemoglobin stable this a.m.. Chest x-ray slight improvement, plan for quantification via ultrasound of pleural effusions for possible thoracentesis today. 3 failed attempts at CPAP trials yesterday. 1548-MRI resulted findings consistent of small areas of acute cortical infarct, new since 11/09/2017. I contacted neurology, Dr. Geronimo informed of results. After Dr. Palma's review of imaging and records, it was determined most likely cardioembolic since is affecting both sides and failure with aspirin and Persantine. Ischemic stroke heparin protocol initiated. Careful review secondary to patient history of GI bleed 11/20, thought to be emanating from hemorrhoid ,however due to poor suboptimal prep, they unable to have optimal visualization per Dr. Jones. 11/24: Late entry note. Patient seen and evaluated 614. No acute events overnight. Patient continues on heparin infusion no active signs of bleeding. PTT within therapeutic range. The patient is less responsive this a.m., spontaneous eye opening, not following my commands. Not moving his extremities spontaneously for me as previously performed yesterday. tube feeds reinitiated. Chest x-ray showed further improvement in aeration of lungs the patient continues on FiO2 of 0.35. Plan for CPAP trials today. 11/25: No acute events overnight. Neurological status unchanged. Spontaneous eye opening patient continues not following any commands. Dr. Geronimo at bedside evaluating patient, no change. Patient tolerated CPAP trials approximately 12 hours yesterday. Tolerating tube feeds. Chest x-ray remains unchanged from yesterday. Hemoccult stool negative. Heparin infusion continued. family at bedside. 11/26: Late entry note. Patient seen at 1240pm. Last night the patient was noted to be continuously hyperglycemic. Levemir added to medication regimen 10 mg/day hemoglobin dropped 2 g/dL in 2 days hemoglobin now 7.7, patient to be transfused 1 unit packed red blood. No obvious signs of bleeding Hemoccult was negative. Patient continues on heparin infusion, patient may require tracheostomy and PEG in the near future . Plan to transition to p.o. anticoagulation post procedures. Neurologically the status is unchanged the patient is opens eyes spontaneously no movement of extremities upon my evaluation. Continued CPAP trials currently greater than 6 hours. 11/27: At 1000am, the patient was noted to have melena, approximated at 150 cc per RN evaluation. Heparin infusion discontinued/placed on hold at 10 AM. Stool for Hemoccult blood sent, GI was contacted and informed of the above events. Stat CT of the abdomen and pelvis with p.o. contrast ordered, results pending. Patient previously had been tolerating trickle feeds at 10 cc an hour with no residuals, after initiation of Reglan 5 mg every 8 hours yesterday. Neurologically the patient status is unchanged. Patient does have spontaneous eye opening but does not follow my commands and does not move extremities. Patient's daughter is at bedside, discussed the above events at which she was present for, she is requesting a repeat colonoscopy. I informed her that a CT of the abdomen and pelvis will be obtained, serial hemoglobin will be evaluated and if needed transfusion will be provided and gastroenterology has been contacted and will determine further management if an invasive procedure is required. Hemoglobin continues to be monitored serially, results pending for 10 AM. The patient received 1 unit packed red blood cells, and current hemoglobin trended overnight 8.9 to 8.2 this a.m., posttransfusion. 11/28: hgb continues to decline despite being off heparin. no additional GI interventions are available at this time. clearly the patient has failed anticoagulation with 2 life-threatening bleeding episodes. Although it is clear he may have additional strokes off anticoagulation, we have clear evidence that we are hurting his overall clinical care with his anticoagulation. I explained this at length to the daughter and medical decision maker. however, she insists that she would rather see him of bleeding rather than have any more strokes , and insists that "we can always keep giving him blood". I explained that blood is not without risk, and there is significant risk to anticoagulation, but she is insistent that he be given anticoagulation to prevent further strokes and she has weighed the risks and benefits after having full informed consent, insists upon us restarting the heparin drip. At her insistence, I have restarted it. In addition, I have counseled her that I do not think he will survive this hospitalization, and he will require tracheostomy for further aggressive care. She states that we are not at "day 14" on the vent, and it is not time for a tracheostomy yet. This is a second intubation and we are certainly at risk for complications from endotracheal intubation, and tracheostomy would be the most appropriate next step for this patient, but the family is refusing until WednesdayDecember 01. 11/29 Patient remains intubated, on no sedation. Afebrile. 11/30 No events overnight. Patient tolerated CPAP for most of day yesterday. Remains on Heparin drip. 12/01 Patient remains intubated tolerated CPAP for several hrs yesterday. s/p CT guided right thoracentesis with removal 500ml pleural fluid. On Heparin drip 12/02 No events overnight. Heparin drip stopped this morning for trach and PEG placement today. Afebrile. 12/03 Patient s/p trach and PEG tube placement yesterday. Had bleeding from around trach and PEG tube insertion sites Heparin drip held last night. s/p transfusion 1u PRBC yesterday Hgb 8.0 this morning. Afebrile. On no sedation. 12/04: Continues to have bruising from PEG tube insertion site. Trach site appears to have stopped. Hemoglobin 7 the same receiving 1 unit FFP and 1 PRBCs. Tube feeds of been resumed. On no sedation. 12/05: Afebrile. No further bleeding noted from the tracheostomy site. Overnight reported by the RN that the PEG tube site continues to bleed Surgicel was placed around the opening, small amount of bleeding still noted. Patient hemoglobin remained 7 patient to be transfused 1 unit PRBC's fibrinogen level pending INR within normal limits. 12/06 Patient s/p transfusion 2u PRBC yesterday Hgb 9.5 this morning from 7.2 last night. No bleeding from trach site however patient still having rectal bleeding. 12/07 No events overnight. On ventilator via trach Hgb 9.8 this morning for colonoscopy today. 12/08: seen and examined around 06:30am. no significant change in mental status. hgb 8.9 this AM. remains on heparin drip at [facility]. 12/09: no improvements or changes. very deconditioned. garcia has remained in without clear indication. had 1 episode of urinary retention, but this is a clear source of infection and an additional serious infection would certainly be life-threatening. 12/10 Patient is now on TP's with 28% FIO2, Afebrile. On Heparin drip. 12/11: remains on t-piece x > 48h. no change in neuro exam. remains on heparin drip with stable hgb 7.8. 12/12: asked to see patient again today by the hospitalist service for change in condition. I have evaluated the patient and he does not clinically appear any different than yesterday. HR actually lower than yesterday. bladder scan suggestive of 600cc retention. patient has had urinary retention before, although has also had multiple hospital acquired urinary tract infections. risk/ benefit at this time would be in favor of serial q6h straight catheterizations. remains hemodynamically stable. some emesis today and evidence of ileus. 12/31 Reconsult for resp distress Patient is 77 yo with chronic resp failure, trach/PEG tube placement, CVA transferred to [facility] for resp distress trach changes to #6 and patient was placed on mechanical ventilation. CXR showed increasing consolidation patient was given Lasix prior to arrival to [facility]. 01/01 Patient is on ventilator via trach. Afebrile. 01/02 No events overnight. On no drips, Afebrile, CPAP 15/5 with 35% FIO2 overnight. 01/03 Remained on TP breathing comfortably. CXR shows bilateral effusions. Will get CT chest. Give single dose of lasix. ID consulted and following, no fever in 24 hours 01/04: Remains unresponsive, fever trending down. Sputum culture now growing Klebsiella and ESBL E. coli. Urine culture and wound culture also growing ESBL E. coli. Chest tube placed on the right side yesterday with 1.35 L output since placement. Urine output excellent with single dose of Lasix 2.5 L in 24 hours. No fever in 24 hours. Repeat 40 mg IV Lasix [facility] RECONSULT NOTE 02/08/18: Mr. Glynn is a 77-year-old man who is known to our service. In short, he was initially admitted with possible optic neuritis versus temporal arteritis in September. Care complicated by an STEMI, multiple infections with healthcare associated pneumonia UTIs. During hospitalization he also received TPA for Stroke, MRI of the brain performed on 12/24/2017, showed infarction involving the left corpus callosum and splenium of the corpus callosum. The patient had undergone tracheostomy placement. And since last month had been on hospitalist service and off ventilator. He is currently receiving Levaquin for stenotrophomonas infection, Diflucan for candidemia. Apparently patient was noted to aspirate earlier this a.m. At 7250 AM patient was found unresponsive pulseless rhythm asystole and CPR was started. Total 3 amp of epinephrine given. Patient had a cuff less trach with evidence of aspiration, large amount of tube feeds aspirated from tracheostomy tube. This was exchanged for a 8.0 Shiley tracheostomy cuffed. With improved bag and mask ventilation and after 3 epinephrine, 1 amp of calcium, 1 amp of bicarb, patient regained ROSC SUBJ 02/09/18: Remains very critical not on any sedation he is unresponsive eyes are spontaneously open but no tracking. Very slight withdrawal to pain on the upper extremities. CT of the head unremarkable. Currently borderline hypotensive off pressors. Received 2 units of PRBC for hemoglobin 6.6 yesterday. Prognosis remained poor. Neurology consulted per family request 02/10/18: Remains critical with no improvement in neuro status or clinical status. Eyes are spontaneously open but no response to threat no tracking. Neurology consulted MRI and EEG pending at this time. Currently remains on Levophed at 1 mcg/min. Chest x-ray with bilateral infiltrates sputum culture growing GNR. Na 155. Free water flushes and half-normal saline rate increased. 02/11: Remains unresponsive off all sedation. Osmolality slowly returning to baseline. Antibiotics appropriate for organism. Tube feeds tolerated at 50 mL' s per hour. Unable to wean from mechanical ventilation. 02/12: Osmolality slowly returning to baseline. Tube feeds now tolerated at 60 mL's per hour. Unable to wean from mechanical ventilation due to fatigue. 02/13: Placed on spontaneous breathing trial this morning but required 18 of pressure support to maintain an adequate minute volume. Will work from this point and attempt to wean pressure support over the next many days. Will place back on mechanical rate nightly. Anticoagulation is been particularly cumbersome and made more difficult by Diflucan. Will restart Coumadin again this morning as INR is declined to 2.2 02/14: Remains very weak. Essentially unresponsive. Tolerates brief periods of spontaneous breathing trial blood pressure support must be markedly elevated to the 1820 range. State of hydration gradually improving as osmolality declines and serum creatinine improves. Will continue hypotonic solutions IV. 02/15: Remains unresponsive. Continues to fail spontaneous breathing trials due to lack of respiratory effort. Suffers from tachypnea with an efficient small tidal volumes regardless of the amount of pressure support. 02/16: Onset of copious watery diarrhea is contaminating buttock wounds. We will insert a dignity shield system for fecal management. Remains unresponsive to noxious stimulation. He does have a weak cough reflex. 02/17: Patient is weaker on attempts at spontaneous breathing trials today. Patient remains unresponsive. Only reaction is a weak cough to suctioning. 02/18: Patient continues to do poorly on attempts at spontaneous breathing trials. Urine output is improved with diuresis, will follow renal function closely. 02/19: Albumin 1.1, further evidence that the patient is deteriorating. Responds to diuretics but prerenal azotemia quickly develops. 02/20: Ongoing attempts to remove excess soft tissue and pleural water consistently resolved and renal impairment. Unfortunately this is largely caused by his poor nutritional status. Despite sufficient nutritional support he continues to deteriorate clinically. 02/21: no improvements in function. still grossly anasarca. Cr worsening again. hypernatremia persists. 02/22: no changes. intermittently tachycardic. still gently diuresing. outlook poor. 02/23: no improvements. anemic this AM requiring transfusion of prbc. Family refuses to allow the holding of anticoagulation given multiple recent CVA, so anticoagulation will continue despite anemia. remains hypernatremic despite therapy. 02/24: no changes or improvements. HR came down with transfusion of prbc yesterday. 02/25: hgb stable. Cr worsens slightly. metabolic derangements have improved somewhat and sodium improving. no improvement in neurologic status. poor prognosis. 02/26, 02/27: Remains on mech ventilation via trach. No improvement in neuro status. 02/28: A.m. laboratories pending. Afebrile. No new changes overnight. 03/01: Remains on mechanical ventilation via tracheostomy. Neurologically unchanged. 03/02: Remains on mechanical ventilation via tracheostomy. Remains encephalopathic with no change in neurologic status. 03/03: Remains encephalopathic on mechanical ventilation via tracheostomy. No change in neuro status. Objective Vital Signs / I&O: Vital Signs 03/02/18 14:00 03/02/18 15:47 03/02/18 16:00 Temperature 96.4 F L Pulse Rate 86 96 H Respiratory Rate 24 22 Blood Pressure 129/76 Pulse Oximetry 100 100 03/02/18 18:00 03/02/18 19:42 03/02/18 19:55 Temperature 97.5 F L Pulse Rate 86 87 87 Respiratory Rate 16 20 Blood Pressure 118/56 L Pulse Oximetry 100 03/02/18 20:00 03/02/18 22:00 03/03/18 00:00 Temperature 97.6 F Pulse Rate 87 87 79 Respiratory Rate 18 Blood Pressure 130/74 Pulse Oximetry 100 03/03/18 00:41 03/03/18 02:00 03/03/18 03:57 Temperature Pulse Rate 79 Respiratory Rate 19 15 Blood Pressure Pulse Oximetry 98 98 03/03/18 04:00 03/03/18 06:00 03/03/18 08:13 Temperature 97.7 F Pulse Rate 80 80 76 Respiratory Rate 24 Blood Pressure 111/64 Pulse Oximetry 100 100 03/03/18 13:15 Temperature Pulse Rate 88 Respiratory Rate 20 Blood Pressure Pulse Oximetry 99 Intake & Output 03/02/18 03/03/18 03/03/18 18:59 06:59 18:59 Intake Total 660 / 660 50 / 50 300 / 300 Output Total 1100 / 1100 1000 / 1000 Balance -440 / -440 -950 / -950 300 / 300 Weight 112.3 kg Intake: IV 50 / 50 50 / 50 Avycaz Inj 1.25 GM In NS Inj 50 50 / 50 50 / 50 ML @ 25 mls/hr IV.SIG Q12HR EDE Rx#:[id number] Tube Feeding 610 / 610 Water Bolus Amount 300 / 300 Output: Urine 1000 / 1000 Stool 100 / 100 Urine Amount (Catheter) 1000 / 1000 Indwelling Urethral Catheter 1000 / 1000 Other: Date of Last Bowel Movement 03/02/18 03/02/18 # Bowel Movements 1 Result Diagrams: 03/03/18 03:46 03/03/18 03:46 Objective Remarks: GENERAL: Patient is 77 yo encephalopathic, unresponsive on the vent. Eyes are closed. SKIN: Warm and dry. Stage IV sacral decubitus, surrounding buttocks excoriation. HEAD: Normocephalic. Tongue moist. EYES: No scleral icterus. No injection. PRABHA. NECK: Cuffed tracheostomy tube in place 6.0. Moderate secretions persist. CARDIOVASCULAR: normal rate, regular rhythm. S1, S2. No S4. No JVD. RESPIRATORY: Diminished breath sounds in the bases bilaterally. Persistent scattered rhonchi anteriorly and posteriorly GASTROINTESTINAL: Abdomen soft. PEG tube site clean and dry MUSCULOSKELETAL: No cyanosis. Generalized edema. NEURO: Eyes are closed. Unresponsive to stimulation in all 4 limbs. Weak cough reflex. Assessment and Plan - Assessment and Plan Plan: Assessment: Asystole/Cardiac arrest Worsening encephalopathy most likely anoxia contributing Aspiration pneumonia Acute on chronic hypoxemic and hypercapnic resp failure Combined shock, septic and cardiogenic Healthcare associated pneumonia, stenotrophomonas now with multidrug resistant Klebsiella pneumonia Candidemia -treated UTI with ESBL E. coli CVA Anemia requiring transfusion Sacral decubitus ulcer s/p NSTEMI Optic neuritis Status post tracheostomy and PEG tube placement Acute protein calorie malnutrition- severe Acute kidney injury Hypokalemia Plan: Impression: Neuro -Acute worsening of encephalopathy secondary to systolic cardiac arrest, anoxia -CT head 02/08/[address] Pereira reconsulted per family request -History of L ENID infarct. Status post systemic TPA on November 09 -Neuropsychology has followed. Continue with methylphenidate 10 mg twice daily -Optic neuritis. Status post treatment with IV hydrocortisone -Remains unresponsive. CV: -Asystole/cardiac arrest seems secondary to hypoxia and hypercapnia from severe aspiration -s/p IV fluid normal saline 2 L bolus, 2U PRBC -half-normal saline discontinued 02/28 along with furosemide 40 mg twice daily. Continue free water flushes at 300 mL every 6 -Continue warfarin currently 1 mg daily as per pharmacy's recommendation -Echo 10/19: LV systolic function is moderately reduced, EF 40-45%. Cardiology has followed Dr. Hernández -Doxazosin 2mg daily and carvedilol 3.125mg BID on hold due to hypotension. On atorvastatin 80mg qhs -As needed Midrin 10 every 8 as needed Pulm: -Cardiac arrest seems to be secondary to respiratory arrest. Evidence of aspiration at the time of arrest -Cuff less tracheostomy tube removed and new Shiley 8 cuffed tracheostomy placed 02/08/18 -PRVC/AC ventilation. Albuterol/ipratropium every 6 hours while awake scheduled and albuterol aerosols every 2 hours as needed -Failed CPAP due to apnea -ICU vent bundle. Pulm toilet, trach care. GI -Currently tube feeds at goal with vital 1.5 at 60 cc an hour. continue as tolerated. -On famotidine 10mg BID -Free water flushes 300 mils every 6 hours -Having BMs on polyethylene glycol 17 g daily -Tube feeds with vital 1.5 at 60 mL's per hour 02/12. Continue with hydrocortisone suppository twice daily [id number] 1% per rectal every 6 hours ordered Renal/: -Monitor renal function, electrolytes replacement per protocol ID -Patient was receiving levofloxacin for stenotrophomonas, fluconazole for candidemia -Added meropenem 02/08/18 for previous ESBL E. coli HCAP. Currently on ceftazidime 1.25 g every 12 hours -Previous UTI with ESBL E. coli, Previous healthcare associated pneumonia with Klebsiella and ESBL E. coli -ID Dr. Jalloh following Skin -Sacral wound-Seen by Plastic surgery; debridement declined per patient's family -Wound care is following- apply dressings per wound management recommendations Heme: -Status post 2 units PRBC on 02/08/2018 now s/p additional 2 units prbc on 02/23 for recurrent anemia. -Previous GI bleed; Status post EGD colonoscopy. GI has signed off, patient with healed rectal ulcers and hemorrhoids. -INR currently 1.9.d pending Endo -On SSI with R insulin with 8 units given in the past 24 hours. Insulin detemir 30 units twice daily for glycemic control GI prophylaxis- on famotidine DVT prophylaxis- On warfarin and adjusted per pharmacy consultation. A.m. INR pending Overall impression: Patient remains critically ill after aspiration with hypoxemic and hypercarbic respiratory failure leading to asystolic cardiac arrest. Ten minutes of CPR with return of spontaneous circulation after aggressive resuscitation following CPR, patient remains hypoxemic and encephalopathy. Remains unresponsive, weak respiratory effort is ineffective during spontaneous trials, unable to begin weaning from ventilator. Prognosis remains poor. Family unrealistic with goals of care and press on for aggressive measures. no meaningful improvements in months.
[2018-03-04] MEDS: Insulin NovoLIN Regular Correctional Sugar Inj SQ SCH ×3 (06:53→18:30)
[2018-03-04] MEDS: Polyethylene Glycol 3350 17 GM Packet PO SCH (09:08)
[2018-03-04] MEDS: Ceftazidime/Avibactam Inj 1.25 GM in Sodium Chlor 0.9% Inj 50 ML IV.SIG SCH ×2 (09:08→21:59)
[2018-03-04] MEDS: Insulin Detemir Inj 1,000 UNIT/10 ML Vial SQ SCH ×2 (09:08→21:59)
[2018-03-04] MEDS: Famotidine 20 MG Tablet PO SCH ×2 (09:09→21:59)
[2018-03-04] MEDS: Hydrocortisone Acetate 25 MG Supp RECTAL SCH ×2 (09:09→22:00)
[2018-03-04] MEDS: Hypromellose 0.3% Opth Gel 10 GM Bottle EACH EYE SCH ×2 (09:11→22:00)
[2018-03-04] MEDS: Collagenase Oint 30 GM Tube TOPICAL SCH (09:12)
[2018-03-04 10:33] LABS: ABG Base Excess 5.1 mmol/L (-2-2); ABG PCO2 46 mmHg (38-42); ABG PO2 68 mmHg (61-120)
[2018-03-04 11:09] LABS: INR 1.5 Ratio; Prothrombin Time 14.7 sec (9.8-11.6)
--- NOTE | 2018-03-04 16:20 | P.PNCC ---
Subjective Subjective Remarks/Hospital Course: This is a 77-year-old male who initially presented with vision changes and concern for optic neuritis versus temporal arteritis. His initial presentation was on 10/14. His hospital course has been complicated by an NSTEMI with troponins which peaked at 10, ESBL E. coli urinary tract infection, rectal bleeding suspected from bleeding hemorrhoids, acute anemia secondary to blood loss with hemoglobin started around 14 and is trended down to 9.7 this morning. On his initial MRA he was found to have significant atherosclerotic cerebrovascular disease in all vascular territories. Today, he had an acute mental status change and was obtunded. Rapid response and stroke alert was called. His initial NIH stroke scale was 22. Dr. goldstein had conversations with Dr. Ulloa and neurology as well as Dr. sierra with gastroenterology. GI feels comfortable with giving thrombolytics and neurology feels strongly that this patient would benefit from systemic IV TPA therapy. I evaluated the patient on arrival to the intensive care unit. The patient is arousable, but very somnolent. He is French speaking, and it is very difficult to ascertain whether or not he can follow commands. He does move all extremities spontaneously, although it appears that his left side is weaker than his right. He has noted facial droop. CT head is negative for acute hemorrhage. CTA head neck is significant for the same multivessel cerebrovascular disease that was present on admission. Given the high-risk nature of the stroke as well as his acute anemia this hospitalization, in preparation for giving emergent IV systemic TPA, I placed an arterial line as well as a large-bore peripheral IV so that we could draw serial labs, monitor his hemoglobin, and give blood products if necessary. I also had an additional discussion with the family where I reconfirmed that their goals were aggressive and they fully understood the significant risk of life-threatening hemorrhage associated with systemic TPA in a patient with new anemia and suspected GI bleeding. The family expressed understanding of his condition and understanding of the heightened risk of life-threatening bleeding, but still urged that we needed to get TPA. Immediately after giving IV TPA, patient had a tonic clonic seizure (witnessed on EEG) and became obtunded with acute hypoxic and hypercarbic respiratory failure and was emergently intubated (see separate procedure note for details). 11/10: remains intubated. encephalopathy persists. hgb stable s/p TPA. ~350cc bloody OG tube output, but this is slowing down. 11/11: more awake. on SBT. follows commands. 11/12: remains extubated. off vasopressors. no changes in mental status. 11/18/17 CCM Reconsult Note Patient was transferred to ICU today after a Halicat was called for AMS, hypoxia , high fever. Apparently patient was lethargic since a.m. in the last hour had been unresponsive and hence Halicat was called. Patient had a fever of 101.4 in a.m., T-max is 101.6. I immediately evaluated the patient in the ICU. Patient is completely unresponsive, oxygen saturation 87% on 4 L nasal cannula. Hypopneic. No response to deep pain. Patient was confirmed to be a full code and I proceeded with endotracheal intubation place him on mechanical ventilation as patient was not protecting airway. More history was obtained from discussion with ID Dr. Jalloh. She indicated patient had been increasingly lethargic with fever and also had urinary retention.She has discontinued Ertapenem, and started on meropenem, vancomycin and micafungin. Cultures have been sent and are pending now. Source of sepsis appears to be aspiration pneumonia versus UTI. Repeat UA and panculture pending at this time. Patient was borderline hypotensive prior to intubation and I have started on Levophed to avoid hypotension post intubation. Receiving 1 L normal saline bolus now, give additional fluid bolus if patient requires continued Levophed will place central line 11/19: remains intubated. holding aggrenox for possible thoracentesis today, but family hesitant to consent with concerns over bleeding risk. Cr remains elevated. discussion with Dr. Bernal, unlikely to benefit currently from draining effusion, so at his recommendation, will proceed with attempted weaning from mechanical ventilation and treat effusion conservatively. 11/20: Overnight /early this a.m. ,the patient was noted to have large amount of rectal bleeding. Aggrenox held since 11/18, 2/2 reintubation. Type and screen ordered. Serial H&H currently be performed. Hemodynamically stable. GI has been reconsulted. Protonix previously given PRN, will schedule BID. Patient was reintubated emergently 11/18, plan for continue CPAP trials. Tube feedings until evaluation by GI. ASA placed on hold , in the setting of GI bleeding. 11/21: EGD and colonoscopy performed yesterday. Patient was noted to be constipated ,disimpacted per GI. Patient noted to have hemorrhoids which was clipped. No further bleeding throughout the night. Chest x-ray showed improvement. CPAP trials initiated this a.m.. ASA 81 mg resumed. 11/22: Patient tolerated CPAP trials approximately 13 hours yesterday. Initiation of tube feeds per GI yesterday, no residuals. This am , family concerned patient not responsive. CT brain , ammonia level and EEG pending. Neurology has been reconsulted. Upon my entering the room, this afternoon, the patient was awake, tracking and squeezing my hand upon commands, with right hand. The patient received 1 u PRBC for Hgb 7.2. Post transfusion CBC pending. Plan for quantification of pleural fluid for possible thoracentesis in a.m.. 11/23: No acute events overnight. Patient remains off all sedation. Noted spontaneous eye opening, tracking following commands squeezing hands right greater than left. Neurology following plan for MRI this a.m., repeat EEG pending. Hemoglobin stable this a.m.. Chest x-ray slight improvement, plan for quantification via ultrasound of pleural effusions for possible thoracentesis today. 3 failed attempts at CPAP trials yesterday. 1548-MRI resulted findings consistent of small areas of acute cortical infarct, new since 11/09/2017. I contacted neurology, Dr. Geronimo informed of results. After Dr. Palma's review of imaging and records, it was determined most likely cardioembolic since is affecting both sides and failure with aspirin and Persantine. Ischemic stroke heparin protocol initiated. Careful review secondary to patient history of GI bleed 11/20, thought to be emanating from hemorrhoid ,however due to poor suboptimal prep, they unable to have optimal visualization per Dr. Jones. 11/24: Late entry note. Patient seen and evaluated 614. No acute events overnight. Patient continues on heparin infusion no active signs of bleeding. PTT within therapeutic range. The patient is less responsive this a.m., spontaneous eye opening, not following my commands. Not moving his extremities spontaneously for me as previously performed yesterday. tube feeds reinitiated. Chest x-ray showed further improvement in aeration of lungs the patient continues on FiO2 of 0.35. Plan for CPAP trials today. 11/25: No acute events overnight. Neurological status unchanged. Spontaneous eye opening patient continues not following any commands. Dr. Geronimo at bedside evaluating patient, no change. Patient tolerated CPAP trials approximately 12 hours yesterday. Tolerating tube feeds. Chest x-ray remains unchanged from yesterday. Hemoccult stool negative. Heparin infusion continued. family at bedside. 11/26: Late entry note. Patient seen at 1240pm. Last night the patient was noted to be continuously hyperglycemic. Levemir added to medication regimen 10 mg/day hemoglobin dropped 2 g/dL in 2 days hemoglobin now 7.7, patient to be transfused 1 unit packed red blood. No obvious signs of bleeding Hemoccult was negative. Patient continues on heparin infusion, patient may require tracheostomy and PEG in the near future . Plan to transition to p.o. anticoagulation post procedures. Neurologically the status is unchanged the patient is opens eyes spontaneously no movement of extremities upon my evaluation. Continued CPAP trials currently greater than 6 hours. 11/27: At 1000am, the patient was noted to have melena, approximated at 150 cc per RN evaluation. Heparin infusion discontinued/placed on hold at 10 AM. Stool for Hemoccult blood sent, GI was contacted and informed of the above events. Stat CT of the abdomen and pelvis with p.o. contrast ordered, results pending. Patient previously had been tolerating trickle feeds at 10 cc an hour with no residuals, after initiation of Reglan 5 mg every 8 hours yesterday. Neurologically the patient status is unchanged. Patient does have spontaneous eye opening but does not follow my commands and does not move extremities. Patient's daughter is at bedside, discussed the above events at which she was present for, she is requesting a repeat colonoscopy. I informed her that a CT of the abdomen and pelvis will be obtained, serial hemoglobin will be evaluated and if needed transfusion will be provided and gastroenterology has been contacted and will determine further management if an invasive procedure is required. Hemoglobin continues to be monitored serially, results pending for 10 AM. The patient received 1 unit packed red blood cells, and current hemoglobin trended overnight 8.9 to 8.2 this a.m., posttransfusion. 11/28: hgb continues to decline despite being off heparin. no additional GI interventions are available at this time. clearly the patient has failed anticoagulation with 2 life-threatening bleeding episodes. Although it is clear he may have additional strokes off anticoagulation, we have clear evidence that we are hurting his overall clinical care with his anticoagulation. I explained this at length to the daughter and medical decision maker. however, she insists that she would rather see him of bleeding rather than have any more strokes , and insists that "we can always keep giving him blood". I explained that blood is not without risk, and there is significant risk to anticoagulation, but she is insistent that he be given anticoagulation to prevent further strokes and she has weighed the risks and benefits after having full informed consent, insists upon us restarting the heparin drip. At her insistence, I have restarted it. In addition, I have counseled her that I do not think he will survive this hospitalization, and he will require tracheostomy for further aggressive care. She states that we are not at "day 14" on the vent, and it is not time for a tracheostomy yet. This is a second intubation and we are certainly at risk for complications from endotracheal intubation, and tracheostomy would be the most appropriate next step for this patient, but the family is refusing until WednesdayDecember 01. 11/29 Patient remains intubated, on no sedation. Afebrile. 11/30 No events overnight. Patient tolerated CPAP for most of day yesterday. Remains on Heparin drip. 12/01 Patient remains intubated tolerated CPAP for several hrs yesterday. s/p CT guided right thoracentesis with removal 500ml pleural fluid. On Heparin drip 12/02 No events overnight. Heparin drip stopped this morning for trach and PEG placement today. Afebrile. 12/03 Patient s/p trach and PEG tube placement yesterday. Had bleeding from around trach and PEG tube insertion sites Heparin drip held last night. s/p transfusion 1u PRBC yesterday Hgb 8.0 this morning. Afebrile. On no sedation. 12/04: Continues to have bruising from PEG tube insertion site. Trach site appears to have stopped. Hemoglobin 7 the same receiving 1 unit FFP and 1 PRBCs. Tube feeds of been resumed. On no sedation. 12/05: Afebrile. No further bleeding noted from the tracheostomy site. Overnight reported by the RN that the PEG tube site continues to bleed Surgicel was placed around the opening, small amount of bleeding still noted. Patient hemoglobin remained 7 patient to be transfused 1 unit PRBC's fibrinogen level pending INR within normal limits. 12/06 Patient s/p transfusion 2u PRBC yesterday Hgb 9.5 this morning from 7.2 last night. No bleeding from trach site however patient still having rectal bleeding. 12/07 No events overnight. On ventilator via trach Hgb 9.8 this morning for colonoscopy today. 12/08: seen and examined around 06:30am. no significant change in mental status. hgb 8.9 this AM. remains on heparin drip at [facility]. 12/09: no improvements or changes. very deconditioned. garcia has remained in without clear indication. had 1 episode of urinary retention, but this is a clear source of infection and an additional serious infection would certainly be life-threatening. 12/10 Patient is now on TP's with 28% FIO2, Afebrile. On Heparin drip. 12/11: remains on t-piece x > 48h. no change in neuro exam. remains on heparin drip with stable hgb 7.8. 12/12: asked to see patient again today by the hospitalist service for change in condition. I have evaluated the patient and he does not clinically appear any different than yesterday. HR actually lower than yesterday. bladder scan suggestive of 600cc retention. patient has had urinary retention before, although has also had multiple hospital acquired urinary tract infections. risk/ benefit at this time would be in favor of serial q6h straight catheterizations. remains hemodynamically stable. some emesis today and evidence of ileus. 12/31 Reconsult for resp distress Patient is 77 yo with chronic resp failure, trach/PEG tube placement, CVA transferred to [facility] for resp distress trach changes to #6 and patient was placed on mechanical ventilation. CXR showed increasing consolidation patient was given Lasix prior to arrival to [facility]. 01/01 Patient is on ventilator via trach. Afebrile. 01/02 No events overnight. On no drips, Afebrile, CPAP 15/5 with 35% FIO2 overnight. 01/03 Remained on TP breathing comfortably. CXR shows bilateral effusions. Will get CT chest. Give single dose of lasix. ID consulted and following, no fever in 24 hours 01/04: Remains unresponsive, fever trending down. Sputum culture now growing Klebsiella and ESBL E. coli. Urine culture and wound culture also growing ESBL E. coli. Chest tube placed on the right side yesterday with 1.35 L output since placement. Urine output excellent with single dose of Lasix 2.5 L in 24 hours. No fever in 24 hours. Repeat 40 mg IV Lasix [facility] RECONSULT NOTE 02/08/18: Mr. Glynn is a 77-year-old man who is known to our service. In short, he was initially admitted with possible optic neuritis versus temporal arteritis in September. Care complicated by an STEMI, multiple infections with healthcare associated pneumonia UTIs. During hospitalization he also received TPA for Stroke, MRI of the brain performed on 12/24/2017, showed infarction involving the left corpus callosum and splenium of the corpus callosum. The patient had undergone tracheostomy placement. And since last month had been on hospitalist service and off ventilator. He is currently receiving Levaquin for stenotrophomonas infection, Diflucan for candidemia. Apparently patient was noted to aspirate earlier this a.m. At 7250 AM patient was found unresponsive pulseless rhythm asystole and CPR was started. Total 3 amp of epinephrine given. Patient had a cuff less trach with evidence of aspiration, large amount of tube feeds aspirated from tracheostomy tube. This was exchanged for a 8.0 Shiley tracheostomy cuffed. With improved bag and mask ventilation and after 3 epinephrine, 1 amp of calcium, 1 amp of bicarb, patient regained ROSC SUBJ 02/09/18: Remains very critical not on any sedation he is unresponsive eyes are spontaneously open but no tracking. Very slight withdrawal to pain on the upper extremities. CT of the head unremarkable. Currently borderline hypotensive off pressors. Received 2 units of PRBC for hemoglobin 6.6 yesterday. Prognosis remained poor. Neurology consulted per family request 02/10/18: Remains critical with no improvement in neuro status or clinical status. Eyes are spontaneously open but no response to threat no tracking. Neurology consulted MRI and EEG pending at this time. Currently remains on Levophed at 1 mcg/min. Chest x-ray with bilateral infiltrates sputum culture growing GNR. Na 155. Free water flushes and half-normal saline rate increased. 02/11: Remains unresponsive off all sedation. Osmolality slowly returning to baseline. Antibiotics appropriate for organism. Tube feeds tolerated at 50 mL' s per hour. Unable to wean from mechanical ventilation. 02/12: Osmolality slowly returning to baseline. Tube feeds now tolerated at 60 mL's per hour. Unable to wean from mechanical ventilation due to fatigue. 02/13: Placed on spontaneous breathing trial this morning but required 18 of pressure support to maintain an adequate minute volume. Will work from this point and attempt to wean pressure support over the next many days. Will place back on mechanical rate nightly. Anticoagulation is been particularly cumbersome and made more difficult by Diflucan. Will restart Coumadin again this morning as INR is declined to 2.2 02/14: Remains very weak. Essentially unresponsive. Tolerates brief periods of spontaneous breathing trial blood pressure support must be markedly elevated to the 1820 range. State of hydration gradually improving as osmolality declines and serum creatinine improves. Will continue hypotonic solutions IV. 02/15: Remains unresponsive. Continues to fail spontaneous breathing trials due to lack of respiratory effort. Suffers from tachypnea with an efficient small tidal volumes regardless of the amount of pressure support. 02/16: Onset of copious watery diarrhea is contaminating buttock wounds. We will insert a dignity shield system for fecal management. Remains unresponsive to noxious stimulation. He does have a weak cough reflex. 02/17: Patient is weaker on attempts at spontaneous breathing trials today. Patient remains unresponsive. Only reaction is a weak cough to suctioning. 02/18: Patient continues to do poorly on attempts at spontaneous breathing trials. Urine output is improved with diuresis, will follow renal function closely. 02/19: Albumin 1.1, further evidence that the patient is deteriorating. Responds to diuretics but prerenal azotemia quickly develops. 02/20: Ongoing attempts to remove excess soft tissue and pleural water consistently resolved and renal impairment. Unfortunately this is largely caused by his poor nutritional status. Despite sufficient nutritional support he continues to deteriorate clinically. 02/21: no improvements in function. still grossly anasarca. Cr worsening again. hypernatremia persists. 02/22: no changes. intermittently tachycardic. still gently diuresing. outlook poor. 02/23: no improvements. anemic this AM requiring transfusion of prbc. Family refuses to allow the holding of anticoagulation given multiple recent CVA, so anticoagulation will continue despite anemia. remains hypernatremic despite therapy. 02/24: no changes or improvements. HR came down with transfusion of prbc yesterday. 02/25: hgb stable. Cr worsens slightly. metabolic derangements have improved somewhat and sodium improving. no improvement in neurologic status. poor prognosis. 02/26, 02/27: Remains on mech ventilation via trach. No improvement in neuro status. 02/28: A.m. laboratories pending. Afebrile. No new changes overnight. 03/01: Remains on mechanical ventilation via tracheostomy. Neurologically unchanged. 03/02: Remains on mechanical ventilation via tracheostomy. Remains encephalopathic with no change in neurologic status. 03/03, 03/04: Remains encephalopathic on mechanical ventilation via tracheostomy. No change in neuro status. Objective Vital Signs / I&O: Vital Signs 03/03/18 18:00 03/03/18 20:00 03/03/18 20:24 Temperature 97.5 F L Pulse Rate 85 82 87 Respiratory Rate 18 18 Blood Pressure 116/69 Pulse Oximetry 99 99 03/03/18 22:00 03/04/18 00:00 03/04/18 00:14 Temperature 97.5 F L Pulse Rate 84 85 Respiratory Rate 17 18 Blood Pressure 119/63 Pulse Oximetry 97 97 03/04/18 02:00 03/04/18 03:53 03/04/18 04:00 Temperature 97.5 F L Pulse Rate 82 86 Respiratory Rate 20 22 Blood Pressure 148/71 H Pulse Oximetry 98 97 03/04/18 06:00 03/04/18 07:46 03/04/18 07:48 Temperature Pulse Rate 82 68 Respiratory Rate 15 15 Blood Pressure Pulse Oximetry 98 03/04/18 08:00 03/04/18 10:00 03/04/18 12:00 Temperature 97.5 F L 97.5 F L Pulse Rate 80 84 84 Respiratory Rate 15 20 Blood Pressure 131/64 143/79 H Pulse Oximetry 100 99 03/04/18 13:02 03/04/18 13:03 03/04/18 14:00 Temperature Pulse Rate 83 84 Respiratory Rate 22 22 Blood Pressure Pulse Oximetry 99 Intake & Output 03/03/18 03/04/18 03/04/18 18:59 06:59 18:59 Intake Total 1300 / 1300 813 / 813 50 / 50 Output Total 1300 / 1300 1025 / 1025 Balance 0 / 0 -212 / -212 50 / 50 Weight 88 kg Intake: IV 50 / 50 45 / 45 50 / 50 Avycaz Inj 1.25 GM In NS Inj 50 50 / 50 45 / 45 50 / 50 ML @ 25 mls/hr IV.SIG Q12HR EDE Rx#:[id number] Tube Feeding 710 / 710 768 / 768 Water Bolus Amount 520 / 520 Other 20 / 20 Output: Stool 400 / 400 0 / 0 Urine Amount (Catheter) 900 / 900 1025 / 1025 Indwelling Urethral Catheter 900 / 900 1025 / 1025 Other: Date of Last Bowel Movement 03/02/18 03/03/18 03/04/18 # Bowel Movements 1 Result Diagrams: 03/03/18 03:46 03/03/18 03:46 Objective Remarks: GENERAL: Patient is 77 yo encephalopathic, unresponsive on the vent. Eyes are closed. SKIN: Warm and dry. Stage IV sacral decubitus, surrounding buttocks excoriation. HEAD: Normocephalic. Tongue moist. EYES: No scleral icterus. No injection. PRABHA. NECK: Cuffed tracheostomy tube in place 6.0. Moderate secretions persist. CARDIOVASCULAR: normal rate, regular rhythm. S1, S2. No S4. No JVD. RESPIRATORY: Diminished breath sounds in the bases bilaterally. Persistent scattered rhonchi anteriorly and posteriorly GASTROINTESTINAL: Abdomen soft. PEG tube site clean and dry MUSCULOSKELETAL: No cyanosis. Generalized edema. NEURO: Eyes are closed. Unresponsive to stimulation in all 4 limbs. Weak cough reflex. Assessment and Plan - Assessment and Plan Plan: Assessment: Asystole/Cardiac arrest Worsening encephalopathy most likely anoxia contributing Aspiration pneumonia Acute on chronic hypoxemic and hypercapnic resp failure Combined shock, septic and cardiogenic Healthcare associated pneumonia, stenotrophomonas now with multidrug resistant Klebsiella pneumonia Candidemia -treated UTI with ESBL E. coli CVA Anemia requiring transfusion Sacral decubitus ulcer s/p NSTEMI Optic neuritis Status post tracheostomy and PEG tube placement Acute protein calorie malnutrition- severe Acute kidney injury Hypokalemia Plan: Impression: Neuro -Acute worsening of encephalopathy secondary to systolic cardiac arrest, anoxia -CT head 02/08/[address] Pereira reconsulted per family request -History of L ENID infarct. Status post systemic TPA on November 09 -Neuropsychology has followed. Continue with methylphenidate 10 mg twice daily -Optic neuritis. Status post treatment with IV hydrocortisone -Remains unresponsive. CV: -Asystole/cardiac arrest seems secondary to hypoxia and hypercapnia from severe aspiration -s/p IV fluid normal saline 2 L bolus, 2U PRBC -half-normal saline discontinued 02/28 along with furosemide 40 mg twice daily. Continue free water flushes at 300 mL every 6 -Continue warfarin currently 1 mg daily as per pharmacy's recommendation -Echo 10/19: LV systolic function is moderately reduced, EF 40-45%. Cardiology has followed Dr. Hernández -Doxazosin 2mg daily and carvedilol 3.125mg BID on hold due to hypotension. On atorvastatin 80mg qhs -As needed Midrin 10 every 8 as needed Pulm: -Cardiac arrest seems to be secondary to respiratory arrest. Evidence of aspiration at the time of arrest -Cuff less tracheostomy tube removed and new Shiley 8 cuffed tracheostomy placed 02/08/18 -PRVC/AC ventilation. Albuterol/ipratropium every 6 hours while awake scheduled and albuterol aerosols every 2 hours as needed -Failed CPAP due to apnea -ICU vent bundle. Pulm toilet, trach care. GI -Currently tube feeds at goal with vital 1.5 at 60 cc an hour. continue as tolerated. -On famotidine 10mg BID -Free water flushes 300 mils every 6 hours -Having BMs on polyethylene glycol 17 g daily -Tube feeds with vital 1.5 at 60 mL's per hour 02/12. Continue with hydrocortisone suppository twice daily [id number] 1% per rectal every 6 hours ordered Renal/: -Monitor renal function, electrolytes replacement per protocol ID -Patient was receiving levofloxacin for stenotrophomonas, fluconazole for candidemia -Added meropenem 02/08/18 for previous ESBL E. coli HCAP. Currently on ceftazidime 1.25 g every 12 hours -Previous UTI with ESBL E. coli, Previous healthcare associated pneumonia with Klebsiella and ESBL E. coli -ID Dr. Jalloh following Skin -Sacral wound-Seen by Plastic surgery; debridement declined per patient's family -Wound care is following- apply dressings per wound management recommendations Heme: -Status post 2 units PRBC on 02/08/2018 now s/p additional 2 units prbc on 02/23 for recurrent anemia. -Previous GI bleed; Status post EGD colonoscopy. GI has signed off, patient with healed rectal ulcers and hemorrhoids. -INR currently 1.9.d pending Endo -On SSI with R insulin with 8 units given in the past 24 hours. Insulin detemir 30 units twice daily for glycemic control GI prophylaxis- on famotidine DVT prophylaxis- On warfarin and adjusted per pharmacy consultation. A.m. INR pending Overall impression: Patient remains critically ill after aspiration with hypoxemic and hypercarbic respiratory failure leading to asystolic cardiac arrest. Ten minutes of CPR with return of spontaneous circulation after aggressive resuscitation following CPR, patient remains hypoxemic and encephalopathy. Remains unresponsive, weak respiratory effort is ineffective during spontaneous trials, unable to begin weaning from ventilator. Prognosis remains poor. Family unrealistic with goals of care and press on for aggressive measures. no meaningful improvements in months.
--- NOTE | 2018-03-04 19:14 | P.PNID ---
Subjective Remarks: remains on vent, not tolerates CPAP today scant secretions growing MDRO pseudomonas spp fro sputum as well minimal responsiveness normothermic today WBC wnl Antibiotics: avycaz Lines: PIV Lines ok Past Medical History: reviewed Allergies/Adverse Reactions: Allergies Glucerna 1.5 Adverse Reaction (Uncoded 02/09/18 12:04) Vomiting Objective Vital Signs 03/03/18 20:00 03/03/18 20:24 03/03/18 22:00 Temperature 97.5 F L Pulse Rate 82 87 84 Respiratory Rate 18 18 Blood Pressure 116/69 Pulse Oximetry 99 99 03/04/18 00:00 03/04/18 00:14 03/04/18 02:00 Temperature 97.5 F L Pulse Rate 85 82 Respiratory Rate 17 18 Blood Pressure 119/63 Pulse Oximetry 97 97 03/04/18 03:53 03/04/18 04:00 03/04/18 06:00 Temperature 97.5 F L Pulse Rate 86 82 Respiratory Rate 20 22 Blood Pressure 148/71 H Pulse Oximetry 98 97 03/04/18 07:46 03/04/18 07:48 03/04/18 08:00 Temperature 97.5 F L Pulse Rate 68 80 Respiratory Rate 15 15 15 Blood Pressure 131/64 Pulse Oximetry 98 100 03/04/18 10:00 03/04/18 12:00 03/04/18 13:02 Temperature 97.5 F L Pulse Rate 84 84 Respiratory Rate 20 22 Blood Pressure 143/79 H Pulse Oximetry 99 99 03/04/18 13:03 03/04/18 14:00 03/04/18 16:00 Temperature 95.9 F L Pulse Rate 83 84 84 Respiratory Rate 22 20 Blood Pressure 115/61 Pulse Oximetry 99 03/04/18 16:26 03/04/18 18:00 Temperature Pulse Rate 96 H Respiratory Rate 21 Blood Pressure Pulse Oximetry 99 Intake & Output 03/04/18 03/04/18 03/05/18 06:59 18:59 06:59 Intake Total 813 / 813 1110 / 1110 Output Total 1025 / 1025 1100 / 1100 Balance -212 / -212 10 Weight 88 kg Intake: IV 45 / 45 50 / 50 Avycaz Inj 1.25 GM In NS Inj 50 45 / 45 50 / 50 ML @ 25 mls/hr IV.SIG Q12HR EDE Rx#:[id number] Tube Feeding 768 / 768 660 / 660 Water Bolus Amount 400 / 400 Output: Stool 0 / 0 100 / 100 Urine Amount (Catheter) 1025 / 1025 1000 / 1000 Indwelling Urethral Catheter 1025 / 1025 1000 / 1000 Other: Date of Last Bowel Movement 03/03/18 03/04/18 02/26/18 19:29 Blood - Peripheral Aerobic Blood Culture - Final No growth in 5 days 02/26/18 19:29 Blood - Peripheral Anaerobic Blood Culture - Final No growth in 5 days 02/26/18 19:20 Blood - Peripheral Aerobic Blood Culture - Final No growth in 5 days 02/26/18 19:20 Blood - Peripheral Anaerobic Blood Culture - Final No growth in 5 days 02/23/18 14:00 Sputum - Endotracheal Gram Stain - Final 02/23/18 14:00 Sputum - Endotracheal Sputum Culture - Final Pseudomonas aeruginosa Multidrug Resistant Lab - Hematology Results 03/03/18 03:46 WBC 8.6 RBC 3.19 L Hgb 8.5 L Hct 26.3 L MCV 82.5 MCH 26.8 L MCHC 32.4 RDW 20.5 H Plt Count 291 MPV 8.9 Lab - Chemistry Results 03/02/18 03/03/18 03/03/18 23:05 03:46 05:15 Sodium 143 Potassium 4.4 D Chloride 104 Carbon Dioxide 29.6 Anion Gap 9 BUN 73 H Creatinine 1.33 H Estimated GFR 52 L POC Glucose 212 H 165 H Random Glucose 149 H Calcium 8.1 L 03/03/18 03/03/18 03/03/18 12:58 17:11 23:37 Sodium Potassium Chloride Carbon Dioxide Anion Gap BUN Creatinine Estimated GFR POC Glucose 134 H 147 H 159 H Random Glucose Calcium 03/04/18 03/04/18 03/04/18 06:32 12:35 18:00 Sodium Potassium Chloride Carbon Dioxide Anion Gap BUN Creatinine Estimated GFR POC Glucose 157 H 166 H 190 H Random Glucose Calcium Imaging: ITS Impressions Chest CT 01/03/18 00:00 CONCLUSION: 1. Large bilateral pleural effusions occupying more than half of the right and left hemithorax. Abdomen/Pelvis CT 01/13/18 00:00 CONCLUSION: 1. Small bilateral pleural effusions and basilar infiltrates with bilateral chest tubes in place. 2. No evidence of ascites or bowel dilatation. Abdomen/Bladder Ultrasound 01/15/18 00:00 CONCLUSION: 1. Negative renal sonogram. Abdomen X-Ray 02/08/18 00:00 CONCLUSION: 1. Nonobstructive bowel gas pattern. 2. Gastrostomy tube in the left upper abdominal quadrant Head CT 02/08/18 00:00 CONCLUSION: 1. Stable prominent senescent changes with mild to moderate periventricular ischemic white matter demyelination. 2. No acute intracranial abnormality.. Head MRI 02/10/18 00:00 CONCLUSION: 1. No acute findings. Extensive cortical volume loss. Moderate white matter ischemic changes. No recent infarct. Chest X-Ray 03/02/18 14:20 CONCLUSION: No change. Physical Exam: GENERAL: unresponsive On vent SKIN: Warm and dry. No rash HEAD: Normocephalic. EYES: No scleral icterus. No injection or drainage. NECK: Supple, trachea midline. + trach in place with large amount of drainage CARDIOVASCULAR: RRR. No murmurs, rubs, gallops RESPIRATORY: Breath sounds equal bilaterally. No accessory muscle use. scattered rhonchi GASTROINTESTINAL: Abdomen soft, non-tender, nondistended. +PEG tube in place MUSCULOSKELETAL: No cyanosis, + some pitting edema. GUl; garcia in place with yellow urine Neuro: obtunded unresponsive no eye contact, not follws commands non vernbal Assessment and Plan - Plan Sacral decub with possible underlying infection, osteomyelitis. growing PSAE S zosyn PNA, HCAP - growing PSAE , MDRO GNR UTI ? ESBL given h/o ESBL. 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 Encephalopathy: strokes in hospital, optic neuritis on presentation. Fungemia, C. tropicalis Hypothermia: resolved cont avycaz rechk sputum clx rechk CMP CXR dw dgtr dw RN
[2018-03-04 22:37] LABS: Alanine Aminotransferase 51 U/L (12-78); Albumin 1.1 g/dL (3.4-5.0); Anion Gap 9 meq/L (5-15); Aspartate Aminotransferase 104 U/L (15-37); Blood Urea Nitrogen 76 mg/dL (7-18); Calcium 8.1 mg/dL (8.5-10.1); Carbon Dioxide 29.2 meq/L (21.0-32.0); Chloride 104 meq/L (98-107); Glomerular Filtration Rate 52 mL/min (>89); Glucose,Random 192 mg/dL (74-106); Potassium 5.1 meq/L (3.5-5.1); Sodium 142 meq/L (136-145)
[2018-03-04 22:39] LABS: Alkaline Phosphatase 472 U/L (45-117); Total Protein 7.8 g/dL (6.4-8.2)
[2018-03-05] MEDS: Insulin NovoLIN Regular Correctional Sugar Inj SQ SCH ×4 (00:30→18:24)
[2018-03-05 04:09] LABS: Hematocrit 26.1 % (39.0-51.0); Hemoglobin 8.3 gm/dL (13.0-17.0); Mean Corpuscular HGB Conc 31.8 % (32.0-36.0); Mean Corpuscular Hemoglobin 26.6 pg (27.0-34.0); Mean Corpuscular Volume 83.6 fL (80.0-100.0); Mean Platelet Volume 8.7 fL (7.0-11.0); Platelet Count 322 th/mm3 (150-450); Red Blood Count 3.12 mil/mm3 (4.50-5.90); Red Cell Distribution Width 20.7 % (11.6-17.2)
[2018-03-05 04:19] LABS: INR 1.5 Ratio; Prothrombin Time 15.1 sec (9.8-11.6)
[2018-03-05 04:29] LABS: Calcium 8.1 mg/dL (8.5-10.1); Carbon Dioxide 29.6 meq/L (21.0-32.0); Potassium 5.1 meq/L (3.5-5.1)
--- NOTE | 2018-03-05 06:25 | XR ---
EXAM DATE: 03/05/2018 5:33 AM EDT AGE/SEX: 77 years / Male INDICATIONS: Follow up pneumonia. CLINICAL DATA: This is the patient's subsequent encounter. Patient reports that signs and symptoms h ave been present for 4 - 6 days and indicates a pain score of Nonresponsive. MEDICAL/SURGICAL HISTORY: Non-responsive. Non-responsive. COMPARISON: [facility] – [place], [place], CHEST 1V SINGLE AP, 03/02/2018. . FINDINGS: Increasing opacity in the lower lateral left chest characteristic of an increasing size left pleural effusion. Decrease in the size of the right pleural effusion. Persistent left lower lobe consolidatio n with loss of delineation of the left hemidiaphragm. The heart is stable in size. The ostomy in plac e. CONCLUSION: 1. Persistent left lower lobe consolidation. 2. Increasing size left pleural effusion and decreasing size right pleural effusion. Electronically signed by: Reid Atkins MD 03/05/2018 6:24 AM EDT
[2018-03-05] MEDS: Hypromellose 0.3% Opth Gel 10 GM Bottle EACH EYE SCH ×2 (08:18→21:03)
[2018-03-05] MEDS: Famotidine 20 MG Tablet PO SCH ×2 (08:19→21:03)
[2018-03-05] MEDS: Collagenase Oint 30 GM Tube TOPICAL SCH (08:19)
[2018-03-05] MEDS: Hydrocortisone Acetate 25 MG Supp RECTAL SCH (08:19)
[2018-03-05] MEDS: Insulin Detemir Inj 1,000 UNIT/10 ML Vial SQ SCH (08:19)
[2018-03-05] MEDS: Polyethylene Glycol 3350 17 GM Packet PO SCH (08:19)
--- NOTE | 2018-03-05 09:28 | P.PNCC ---
Subjective Subjective Remarks/Hospital Course: This is a 77-year-old male who initially presented with vision changes and concern for optic neuritis versus temporal arteritis. His initial presentation was on 10/14. His hospital course has been complicated by an NSTEMI with troponins which peaked at 10, ESBL E. coli urinary tract infection, rectal bleeding suspected from bleeding hemorrhoids, acute anemia secondary to blood loss with hemoglobin started around 14 and is trended down to 9.7 this morning. On his initial MRA he was found to have significant atherosclerotic cerebrovascular disease in all vascular territories. Today, he had an acute mental status change and was obtunded. Rapid response and stroke alert was called. His initial NIH stroke scale was 22. Dr. goldstein had conversations with Dr. Ulloa and neurology as well as Dr. sierra with gastroenterology. GI feels comfortable with giving thrombolytics and neurology feels strongly that this patient would benefit from systemic IV TPA therapy. I evaluated the patient on arrival to the intensive care unit. The patient is arousable, but very somnolent. He is Uz[place] speaking, and it is very difficult to ascertain whether or not he can follow commands. He does move all extremities spontaneously, although it appears that his left side is weaker than his right. He has noted facial droop. CT head is negative for acute hemorrhage. CTA head neck is significant for the same multivessel cerebrovascular disease that was present on admission. Given the high-risk nature of the stroke as well as his acute anemia this hospitalization, in preparation for giving emergent IV systemic TPA, I placed an arterial line as well as a large-bore peripheral IV so that we could draw serial labs, monitor his hemoglobin, and give blood products if necessary. I also had an additional discussion with the family where I reconfirmed that their goals were aggressive and they fully understood the significant risk of life-threatening hemorrhage associated with systemic TPA in a patient with new anemia and suspected GI bleeding. The family expressed understanding of his condition and understanding of the heightened risk of life-threatening bleeding, but still urged that we needed to get TPA. Immediately after giving IV TPA, patient had a tonic clonic seizure (witnessed on EEG) and became obtunded with acute hypoxic and hypercarbic respiratory failure and was emergently intubated (see separate procedure note for details). 11/10: remains intubated. encephalopathy persists. hgb stable s/p TPA. ~350cc bloody OG tube output, but this is slowing down. 11/11: more awake. on SBT. follows commands. 11/12: remains extubated. off vasopressors. no changes in mental status. 11/18/17 CCM Reconsult Note Patient was transferred to ICU today after a Halicat was called for AMS, hypoxia , high fever. Apparently patient was lethargic since a.m. in the last hour had been unresponsive and hence Halicat was called. Patient had a fever of 101.4 in a.m., T-max is 101.6. I immediately evaluated the patient in the ICU. Patient is completely unresponsive, oxygen saturation 87% on 4 L nasal cannula. Hypopneic. No response to deep pain. Patient was confirmed to be a full code and I proceeded with endotracheal intubation place him on mechanical ventilation as patient was not protecting airway. More history was obtained from discussion with ID Dr. Jalloh. She indicated patient had been increasingly lethargic with fever and also had urinary retention.She has discontinued Ertapenem, and started on meropenem, vancomycin and micafungin. Cultures have been sent and are pending now. Source of sepsis appears to be aspiration pneumonia versus UTI. Repeat UA and panculture pending at this time. Patient was borderline hypotensive prior to intubation and I have started on Levophed to avoid hypotension post intubation. Receiving 1 L normal saline bolus now, give additional fluid bolus if patient requires continued Levophed will place central line 11/19: remains intubated. holding aggrenox for possible thoracentesis today, but family hesitant to consent with concerns over bleeding risk. Cr remains elevated. discussion with Dr. Bernal, unlikely to benefit currently from draining effusion, so at his recommendation, will proceed with attempted weaning from mechanical ventilation and treat effusion conservatively. 11/20: Overnight /early this a.m. ,the patient was noted to have large amount of rectal bleeding. Aggrenox held since 11/18, 2/2 reintubation. Type and screen ordered. Serial H&H currently be performed. Hemodynamically stable. GI has been reconsulted. Protonix previously given PRN, will schedule BID. Patient was reintubated emergently 11/18, plan for continue CPAP trials. Tube feedings until evaluation by GI. ASA placed on hold , in the setting of GI bleeding. 11/21: EGD and colonoscopy performed yesterday. Patient was noted to be constipated ,disimpacted per GI. Patient noted to have hemorrhoids which was clipped. No further bleeding throughout the night. Chest x-ray showed improvement. CPAP trials initiated this a.m.. ASA 81 mg resumed. 11/22: Patient tolerated CPAP trials approximately 13 hours yesterday. Initiation of tube feeds per GI yesterday, no residuals. This am , family concerned patient not responsive. CT brain , ammonia level and EEG pending. Neurology has been reconsulted. Upon my entering the room, this afternoon, the patient was awake, tracking and squeezing my hand upon commands, with right hand. The patient received 1 u PRBC for Hgb 7.2. Post transfusion CBC pending. Plan for quantification of pleural fluid for possible thoracentesis in a.m.. 11/23: No acute events overnight. Patient remains off all sedation. Noted spontaneous eye opening, tracking following commands squeezing hands right greater than left. Neurology following plan for MRI this a.m., repeat EEG pending. Hemoglobin stable this a.m.. Chest x-ray slight improvement, plan for quantification via ultrasound of pleural effusions for possible thoracentesis today. 3 failed attempts at CPAP trials yesterday. 1548-MRI resulted findings consistent of small areas of acute cortical infarct, new since 11/09/2017. I contacted neurology, Dr. Geronimo informed of results. After Dr. Palma's review of imaging and records, it was determined most likely cardioembolic since is affecting both sides and failure with aspirin and Persantine. Ischemic stroke heparin protocol initiated. Careful review secondary to patient history of GI bleed 11/20, thought to be emanating from hemorrhoid ,however due to poor suboptimal prep, they unable to have optimal visualization per Dr. Jones. 11/24: Late entry note. Patient seen and evaluated 614. No acute events overnight. Patient continues on heparin infusion no active signs of bleeding. PTT within therapeutic range. The patient is less responsive this a.m., spontaneous eye opening, not following my commands. Not moving his extremities spontaneously for me as previously performed yesterday. tube feeds reinitiated. Chest x-ray showed further improvement in aeration of lungs the patient continues on FiO2 of 0.35. Plan for CPAP trials today. 11/25: No acute events overnight. Neurological status unchanged. Spontaneous eye opening patient continues not following any commands. Dr. Geronimo at bedside evaluating patient, no change. Patient tolerated CPAP trials approximately 12 hours yesterday. Tolerating tube feeds. Chest x-ray remains unchanged from yesterday. Hemoccult stool negative. Heparin infusion continued. family at bedside. 11/26: Late entry note. Patient seen at 1240pm. Last night the patient was noted to be continuously hyperglycemic. Levemir added to medication regimen 10 mg/day hemoglobin dropped 2 g/dL in 2 days hemoglobin now 7.7, patient to be transfused 1 unit packed red blood. No obvious signs of bleeding Hemoccult was negative. Patient continues on heparin infusion, patient may require tracheostomy and PEG in the near future . Plan to transition to p.o. anticoagulation post procedures. Neurologically the status is unchanged the patient is opens eyes spontaneously no movement of extremities upon my evaluation. Continued CPAP trials currently greater than 6 hours. 11/27: At 1000am, the patient was noted to have melena, approximated at 150 cc per RN evaluation. Heparin infusion discontinued/placed on hold at 10 AM. Stool for Hemoccult blood sent, GI was contacted and informed of the above events. Stat CT of the abdomen and pelvis with p.o. contrast ordered, results pending. Patient previously had been tolerating trickle feeds at 10 cc an hour with no residuals, after initiation of Reglan 5 mg every 8 hours yesterday. Neurologically the patient status is unchanged. Patient does have spontaneous eye opening but does not follow my commands and does not move extremities. Patient's daughter is at bedside, discussed the above events at which she was present for, she is requesting a repeat colonoscopy. I informed her that a CT of the abdomen and pelvis will be obtained, serial hemoglobin will be evaluated and if needed transfusion will be provided and gastroenterology has been contacted and will determine further management if an invasive procedure is required. Hemoglobin continues to be monitored serially, results pending for 10 AM. The patient received 1 unit packed red blood cells, and current hemoglobin trended overnight 8.9 to 8.2 this a.m., posttransfusion. 11/28: hgb continues to decline despite being off heparin. no additional GI interventions are available at this time. clearly the patient has failed anticoagulation with 2 life-threatening bleeding episodes. Although it is clear he may have additional strokes off anticoagulation, we have clear evidence that we are hurting his overall clinical care with his anticoagulation. I explained this at length to the daughter and medical decision maker. however, she insists that she would rather see him of bleeding rather than have any more strokes , and insists that "we can always keep giving him blood". I explained that blood is not without risk, and there is significant risk to anticoagulation, but she is insistent that he be given anticoagulation to prevent further strokes and she has weighed the risks and benefits after having full informed consent, insists upon us restarting the heparin drip. At her insistence, I have restarted it. In addition, I have counseled her that I do not think he will survive this hospitalization, and he will require tracheostomy for further aggressive care. She states that we are not at "day 14" on the vent, and it is not time for a tracheostomy yet. This is a second intubation and we are certainly at risk for complications from endotracheal intubation, and tracheostomy would be the most appropriate next step for this patient, but the family is refusing until WednesdayDecember 01. 11/29 Patient remains intubated, on no sedation. Afebrile. 11/30 No events overnight. Patient tolerated CPAP for most of day yesterday. Remains on Heparin drip. 12/01 Patient remains intubated tolerated CPAP for several hrs yesterday. s/p CT guided right thoracentesis with removal 500ml pleural fluid. On Heparin drip 12/02 No events overnight. Heparin drip stopped this morning for trach and PEG placement today. Afebrile. 12/03 Patient s/p trach and PEG tube placement yesterday. Had bleeding from around trach and PEG tube insertion sites Heparin drip held last night. s/p transfusion 1u PRBC yesterday Hgb 8.0 this morning. Afebrile. On no sedation. 12/04: Continues to have bruising from PEG tube insertion site. Trach site appears to have stopped. Hemoglobin 7 the same receiving 1 unit FFP and 1 PRBCs. Tube feeds of been resumed. On no sedation. 12/05: Afebrile. No further bleeding noted from the tracheostomy site. Overnight reported by the RN that the PEG tube site continues to bleed Surgicel was placed around the opening, small amount of bleeding still noted. Patient hemoglobin remained 7 patient to be transfused 1 unit PRBC's fibrinogen level pending INR within normal limits. 12/06 Patient s/p transfusion 2u PRBC yesterday Hgb 9.5 this morning from 7.2 last night. No bleeding from trach site however patient still having rectal bleeding. 12/07 No events overnight. On ventilator via trach Hgb 9.8 this morning for colonoscopy today. 12/08: seen and examined around 06:30am. no significant change in mental status. hgb 8.9 this AM. remains on heparin drip at [facility]. 12/09: no improvements or changes. very deconditioned. garcia has remained in without clear indication. had 1 episode of urinary retention, but this is a clear source of infection and an additional serious infection would certainly be life-threatening. 12/10 Patient is now on TP's with 28% FIO2, Afebrile. On Heparin drip. 12/11: remains on t-piece x > 48h. no change in neuro exam. remains on heparin drip with stable hgb 7.8. 12/12: asked to see patient again today by the hospitalist service for change in condition. I have evaluated the patient and he does not clinically appear any different than yesterday. HR actually lower than yesterday. bladder scan suggestive of 600cc retention. patient has had urinary retention before, although has also had multiple hospital acquired urinary tract infections. risk/ benefit at this time would be in favor of serial q6h straight catheterizations. remains hemodynamically stable. some emesis today and evidence of ileus. 12/31 Reconsult for resp distress Patient is 77 yo with chronic resp failure, trach/PEG tube placement, CVA transferred to [facility] for resp distress trach changes to #6 and patient was placed on mechanical ventilation. CXR showed increasing consolidation patient was given Lasix prior to arrival to [facility]. 01/01 Patient is on ventilator via trach. Afebrile. 01/02 No events overnight. On no drips, Afebrile, CPAP 15/5 with 35% FIO2 overnight. 01/03 Remained on TP breathing comfortably. CXR shows bilateral effusions. Will get CT chest. Give single dose of lasix. ID consulted and following, no fever in 24 hours 01/04: Remains unresponsive, fever trending down. Sputum culture now growing Klebsiella and ESBL E. coli. Urine culture and wound culture also growing ESBL E. coli. Chest tube placed on the right side yesterday with 1.35 L output since placement. Urine output excellent with single dose of Lasix 2.5 L in 24 hours. No fever in 24 hours. Repeat 40 mg IV Lasix [facility] RECONSULT NOTE 02/08/18: Mr. Glynn is a 77-year-old man who is known to our service. In short, he was initially admitted with possible optic neuritis versus temporal arteritis in September. Care complicated by an STEMI, multiple infections with healthcare associated pneumonia UTIs. During hospitalization he also received TPA for Stroke, MRI of the brain performed on 12/24/2017, showed infarction involving the left corpus callosum and splenium of the corpus callosum. The patient had undergone tracheostomy placement. And since last month had been on hospitalist service and off ventilator. He is currently receiving Levaquin for stenotrophomonas infection, Diflucan for candidemia. Apparently patient was noted to aspirate earlier this a.m. At 7250 AM patient was found unresponsive pulseless rhythm asystole and CPR was started. Total 3 amp of epinephrine given. Patient had a cuff less trach with evidence of aspiration, large amount of tube feeds aspirated from tracheostomy tube. This was exchanged for a 8.0 Shiley tracheostomy cuffed. With improved bag and mask ventilation and after 3 epinephrine, 1 amp of calcium, 1 amp of bicarb, patient regained ROSC SUBJ 02/09/18: Remains very critical not on any sedation he is unresponsive eyes are spontaneously open but no tracking. Very slight withdrawal to pain on the upper extremities. CT of the head unremarkable. Currently borderline hypotensive off pressors. Received 2 units of PRBC for hemoglobin 6.6 yesterday. Prognosis remained poor. Neurology consulted per family request 02/10/18: Remains critical with no improvement in neuro status or clinical status. Eyes are spontaneously open but no response to threat no tracking. Neurology consulted MRI and EEG pending at this time. Currently remains on Levophed at 1 mcg/min. Chest x-ray with bilateral infiltrates sputum culture growing GNR. Na 155. Free water flushes and half-normal saline rate increased. 02/11: Remains unresponsive off all sedation. Osmolality slowly returning to baseline. Antibiotics appropriate for organism. Tube feeds tolerated at 50 mL' s per hour. Unable to wean from mechanical ventilation. 02/12: Osmolality slowly returning to baseline. Tube feeds now tolerated at 60 mL's per hour. Unable to wean from mechanical ventilation due to fatigue. 02/13: Placed on spontaneous breathing trial this morning but required 18 of pressure support to maintain an adequate minute volume. Will work from this point and attempt to wean pressure support over the next many days. Will place back on mechanical rate nightly. Anticoagulation is been particularly cumbersome and made more difficult by Diflucan. Will restart Coumadin again this morning as INR is declined to 2.2 02/14: Remains very weak. Essentially unresponsive. Tolerates brief periods of spontaneous breathing trial blood pressure support must be markedly elevated to the 1820 range. State of hydration gradually improving as osmolality declines and serum creatinine improves. Will continue hypotonic solutions IV. 02/15: Remains unresponsive. Continues to fail spontaneous breathing trials due to lack of respiratory effort. Suffers from tachypnea with an efficient small tidal volumes regardless of the amount of pressure support. 02/16: Onset of copious watery diarrhea is contaminating buttock wounds. We will insert a dignity shield system for fecal management. Remains unresponsive to noxious stimulation. He does have a weak cough reflex. 02/17: Patient is weaker on attempts at spontaneous breathing trials today. Patient remains unresponsive. Only reaction is a weak cough to suctioning. 02/18: Patient continues to do poorly on attempts at spontaneous breathing trials. Urine output is improved with diuresis, will follow renal function closely. 02/19: Albumin 1.1, further evidence that the patient is deteriorating. Responds to diuretics but prerenal azotemia quickly develops. 02/20: Ongoing attempts to remove excess soft tissue and pleural water consistently resolved and renal impairment. Unfortunately this is largely caused by his poor nutritional status. Despite sufficient nutritional support he continues to deteriorate clinically. 02/21: no improvements in function. still grossly anasarca. Cr worsening again. hypernatremia persists. 02/22: no changes. intermittently tachycardic. still gently diuresing. outlook poor. 02/23: no improvements. anemic this AM requiring transfusion of prbc. Family refuses to allow the holding of anticoagulation given multiple recent CVA, so anticoagulation will continue despite anemia. remains hypernatremic despite therapy. 02/24: no changes or improvements. HR came down with transfusion of prbc yesterday. 02/25: hgb stable. Cr worsens slightly. metabolic derangements have improved somewhat and sodium improving. no improvement in neurologic status. poor prognosis. 02/26, 02/27: Remains on mech ventilation via trach. No improvement in neuro status. 02/28: A.m. laboratories pending. Afebrile. No new changes overnight. 03/01: Remains on mechanical ventilation via tracheostomy. Neurologically unchanged. 03/02: Remains on mechanical ventilation via tracheostomy. Remains encephalopathic with no change in neurologic status. 03/03, 03/04, 03/05: Remains encephalopathic on mechanical ventilation via tracheostomy. No change in neuro status. Objective Vital Signs / I&O: Vital Signs 03/04/18 10:00 03/04/18 12:00 03/04/18 13:02 Temperature 97.5 F L Pulse Rate 84 84 Respiratory Rate 20 22 Blood Pressure 143/79 H Pulse Oximetry 99 99 03/04/18 13:03 03/04/18 14:00 03/04/18 16:00 Temperature 95.9 F L Pulse Rate 83 84 84 Respiratory Rate 22 20 Blood Pressure 115/61 Pulse Oximetry 99 03/04/18 16:26 03/04/18 18:00 03/04/18 20:00 Temperature 99.4 F Pulse Rate 96 H 96 H Respiratory Rate 21 21 Blood Pressure 113/58 L Pulse Oximetry 99 96 03/04/18 20:24 03/04/18 22:00 03/05/18 00:00 Temperature 99 F Pulse Rate 99 H 104 H 100 H Respiratory Rate 21 22 Blood Pressure 115/61 Pulse Oximetry 97 96 03/05/18 00:50 03/05/18 02:00 03/05/18 03:58 Temperature Pulse Rate 103 H Respiratory Rate 20 21 Blood Pressure Pulse Oximetry 97 100 03/05/18 04:00 03/05/18 06:00 03/05/18 07:50 Temperature 98.3 F Pulse Rate 98 H 100 H Respiratory Rate 22 18 Blood Pressure 118/67 Pulse Oximetry 100 97 03/05/18 08:00 Temperature 98.2 F Pulse Rate 98 H Respiratory Rate 17 Blood Pressure 112/61 Pulse Oximetry 97 Intake & Output 03/04/18 03/05/18 03/05/18 18:59 06:59 18:59 Intake Total 1110 / 1110 1158 / 1158 250 / 250 Output Total 1100 / 1100 650 / 650 Balance 508 / 508 250 / 250 Weight 85.7 kg Intake: IV 50 / 50 50 / 50 Avycaz Inj 1.25 GM In NS Inj 50 50 / 50 50 / 50 ML @ 25 mls/hr IV.SIG Q12HR EDE Rx#:[id number] Tube Feeding 660 / 660 608 / 608 Water Bolus Amount 400 / 400 500 / 500 250 / 250 Output: Stool 100 / 100 Urine Amount (Catheter) 1000 / 1000 650 / 650 Indwelling Urethral Catheter 1000 / 1000 650 / 650 Other: Date of Last Bowel Movement 03/04/18 03/04/18 Result Diagrams: 03/05/18 03:32 03/05/18 03:32 Objective Remarks: GENERAL: Patient is 77 yo encephalopathic, unresponsive on the vent. Eyes are closed. SKIN: Warm and dry. Stage IV sacral decubitus, surrounding buttocks excoriation. HEAD: Normocephalic. Tongue moist. EYES: No scleral icterus. No injection. PRABHA. NECK: Cuffed tracheostomy tube in place 6.0. Moderate secretions persist. CARDIOVASCULAR: normal rate, regular rhythm. S1, S2. No S4. No JVD. RESPIRATORY: Diminished breath sounds in the bases bilaterally. Persistent scattered rhonchi anteriorly and posteriorly GASTROINTESTINAL: Abdomen soft. PEG tube site clean and dry MUSCULOSKELETAL: No cyanosis. Generalized edema. NEURO: Eyes are closed. Unresponsive to stimulation in all 4 limbs. Weak cough reflex. Assessment and Plan - Assessment and Plan Plan: Assessment: Asystole/Cardiac arrest Worsening encephalopathy most likely anoxia contributing Aspiration pneumonia Acute on chronic hypoxemic and hypercapnic resp failure Combined shock, septic and cardiogenic Healthcare associated pneumonia, stenotrophomonas now with multidrug resistant Klebsiella pneumonia Candidemia -treated UTI with ESBL E. coli CVA Anemia requiring transfusion Sacral decubitus ulcer s/p NSTEMI Optic neuritis Status post tracheostomy and PEG tube placement Acute protein calorie malnutrition- severe Acute kidney injury Hypokalemia Plan: Impression: Neuro -Acute worsening of encephalopathy secondary to systolic cardiac arrest, anoxia -CT head 02/08/[address] Pereira reconsulted per family request -History of L ENID infarct. Status post systemic TPA on November 09 -Neuropsychology has followed. Continue with methylphenidate 10 mg twice daily -Optic neuritis. Status post treatment with IV hydrocortisone -Remains unresponsive. CV: -Asystole/cardiac arrest seems secondary to hypoxia and hypercapnia from severe aspiration -s/p IV fluid normal saline 2 L bolus, 2U PRBC -half-normal saline discontinued 02/28 along with furosemide 40 mg twice daily. Continue free water flushes at 300 mL every 6 -Continue warfarin currently 1 mg daily as per pharmacy's recommendation -Echo 10/19: LV systolic function is moderately reduced, EF 40-45%. Cardiology has followed Dr. Hernández -Doxazosin 2mg daily and carvedilol 3.125mg BID on hold due to hypotension. On atorvastatin 80mg qhs -As needed Midrin 10 every 8 as needed Pulm: -Cardiac arrest seems to be secondary to respiratory arrest. Evidence of aspiration at the time of arrest -Cuff less tracheostomy tube removed and new Shiley 8 cuffed tracheostomy placed 02/08/18 -PRVC/AC ventilation. Albuterol/ipratropium every 6 hours while awake scheduled and albuterol aerosols every 2 hours as needed -Failed CPAP due to apnea -ICU vent bundle. Pulm toilet, trach care. GI -Currently tube feeds at goal with vital 1.5 at 60 cc an hour. continue as tolerated. -On famotidine 10mg BID -Free water flushes 300 mils every 6 hours -Having BMs on polyethylene glycol 17 g daily -Tube feeds with vital 1.5 at 60 mL's per hour 02/12. Continue with hydrocortisone suppository twice daily [id number] 1% per rectal every 6 hours ordered Renal/: -Monitor renal function, electrolytes replacement per protocol ID -Patient was receiving levofloxacin for stenotrophomonas, fluconazole for candidemia -Added meropenem 02/08/18 for previous ESBL E. coli HCAP. Currently on ceftazidime 1.25 g every 12 hours -Previous UTI with ESBL E. coli, Previous healthcare associated pneumonia with Klebsiella and ESBL E. coli -ID Dr. Jalloh following Skin -Sacral wound-Seen by Plastic surgery; debridement declined per patient's family -Wound care is following- apply dressings per wound management recommendations Heme: -Status post 2 units PRBC on 02/08/2018 now s/p additional 2 units prbc on 02/23 for recurrent anemia. -Previous GI bleed; Status post EGD colonoscopy. GI has signed off, patient with healed rectal ulcers and hemorrhoids. -INR currently 1.9.d pending Endo -On SSI with R insulin with 8 units given in the past 24 hours. Insulin detemir 30 units twice daily for glycemic control GI prophylaxis- on famotidine DVT prophylaxis- On warfarin and adjusted per pharmacy consultation. A.m. INR pending Overall impression: Patient remains critically ill after aspiration with hypoxemic and hypercarbic respiratory failure leading to asystolic cardiac arrest. Ten minutes of CPR with return of spontaneous circulation after aggressive resuscitation following CPR, patient remains hypoxemic and encephalopathy. Remains unresponsive, weak respiratory effort is ineffective during spontaneous trials, unable to begin weaning from ventilator. Prognosis remains poor. Family unrealistic with goals of care and press on for aggressive measures. no meaningful improvements in months.
[2018-03-05] MEDS: Ceftazidime/Avibactam Inj 1.25 GM in Sodium Chlor 0.9% Inj 50 ML IV.SIG SCH ×2 (09:57→21:38)
--- NOTE | 2018-03-05 15:36 | P.PNPL ---
Subjective Interval history: 77 YO male with VDRF, encephalopathy Had episode of desaturation yesterday Now on AC 15, Fi02 40% PEEP 8 Physical Exam Vital signs: Vital Signs 03/04/18 16:00 03/04/18 16:26 03/04/18 18:00 Temperature 95.9 F L Pulse Rate 84 96 H Respiratory Rate 20 21 Blood Pressure 115/61 Pulse Oximetry 99 99 03/04/18 20:00 03/04/18 20:24 03/04/18 22:00 Temperature 99.4 F Pulse Rate 96 H 99 H 104 H Respiratory Rate 21 21 Blood Pressure 113/58 L Pulse Oximetry 96 97 03/05/18 00:00 03/05/18 00:50 03/05/18 02:00 Temperature 99 F Pulse Rate 100 H 103 H Respiratory Rate 22 20 Blood Pressure 115/61 Pulse Oximetry 96 97 03/05/18 03:58 03/05/18 04:00 03/05/18 06:00 Temperature 98.3 F Pulse Rate 98 H 100 H Respiratory Rate 21 22 Blood Pressure 118/67 Pulse Oximetry 100 100 03/05/18 07:50 03/05/18 08:00 03/05/18 10:00 Temperature 98.2 F Pulse Rate 90 91 H Respiratory Rate 18 17 Blood Pressure 112/61 Pulse Oximetry 97 97 03/05/18 12:00 03/05/18 14:00 Temperature 97.7 F Pulse Rate 87 78 Respiratory Rate 18 Blood Pressure 122/66 Pulse Oximetry 97 Intake & Output 03/04/18 03/05/18 03/05/18 18:59 06:59 18:59 Intake Total 1110 / 1110 1158 / 1158 550 / 550 Output Total 1100 / 1100 650 / 650 Balance 10 508 / 508 550 / 550 Weight 85.7 kg Intake: IV 50 / 50 50 / 50 50 / 50 Avycaz Inj 1.25 GM In NS Inj 50 50 / 50 50 / 50 50 / 50 ML @ 25 mls/hr IV.SIG Q12HR [facility] Rx#:[id number] Tube Feeding 660 / 660 608 / 608 Water Bolus Amount 400 / 400 500 / 500 500 / 500 Output: Stool 100 / 100 Urine Amount (Catheter) 1000 / 1000 650 / 650 Indwelling Urethral Catheter 1000 / 1000 650 / 650 Other: Date of Last Bowel Movement 03/04/18 03/04/1803/05/18 # Bowel Movements 1 GENERAL: Elderly Male, on vent SKIN: Warm and dry. HEAD: Normocephalic. EYES: No scleral icterus. No injection or drainage. NECK: Supple, trachea midline. No JVD or lymphadenopathy. Vented th trach CARDIOVASCULAR: Regular rate and rhythm without murmurs, gallops, or rubs. RESPIRATORY: Breath sounds equal bilaterally. No accessory muscle use. GASTROINTESTINAL: Abdomen soft, non-tender, nondistended. PEG tube MUSCULOSKELETAL: No cyanosis, or edema. BACK: Nontender without obvious deformity. No CVA tenderness. Decubitus ulcer - Urinary Catheter Management Straight Cath placed during this visit: yes Urethral indwelling: Yes Reason for continuing: Acute urinary retention Insertion date: 01/21/18 Insertion time: 08:00 Indwelling Urethral Catheter Cath placed during this visit: yes, but has since been removed by the nurse Urethral indwelling: Yes Reason for continuing: Severe pressure ulcer/wound Insertion date: 01/21/18 Insertion time: 16:18 Removal date: 01/20/18 Removal time: 15:15 Assessment and Plan - Plan IMPRESSION: RF, s/p Trach Encephalopathy S/P [place] Decubitus PLAN: Cont vent support Aerosol nebs Tube Feeding Cont TF
[2018-03-06] MEDS: Insulin NovoLIN Regular Correctional Sugar Inj SQ SCH ×4 (00:59→17:32)
[2018-03-06] MEDS: Hydrocortisone Acetate 25 MG Supp RECTAL SCH ×3 (01:00→21:20)
[2018-03-06] MEDS: Insulin Detemir Inj 1,000 UNIT/10 ML Vial SQ SCH ×3 (01:00→21:47)
[2018-03-06 05:33] LABS: INR 1.5 Ratio; Prothrombin Time 15.6 sec (9.8-11.6)
[2018-03-06] MEDS: Ceftazidime/Avibactam Inj 1.25 GM in Sodium Chlor 0.9% Inj 50 ML IV.SIG SCH ×2 (08:08→21:20)
[2018-03-06] MEDS: Hypromellose 0.3% Opth Gel 10 GM Bottle EACH EYE SCH ×2 (08:09→21:20)
[2018-03-06] MEDS: Famotidine 20 MG Tablet PO SCH ×2 (08:10→21:21)
[2018-03-06] MEDS: Polyethylene Glycol 3350 17 GM Packet PO SCH (08:10)
[2018-03-06] MEDS: Collagenase Oint 30 GM Tube TOPICAL SCH (08:10)
--- NOTE | 2018-03-06 12:53 | P.PNCC ---
Subjective Subjective Remarks/Hospital Course: This is a 77-year-old male who initially presented with vision changes and concern for optic neuritis versus temporal arteritis. His initial presentation was on 10/14. His hospital course has been complicated by an NSTEMI with troponins which peaked at 10, ESBL E. coli urinary tract infection, rectal bleeding suspected from bleeding hemorrhoids, acute anemia secondary to blood loss with hemoglobin started around 14 and is trended down to 9.7 this morning. On his initial MRA he was found to have significant atherosclerotic cerebrovascular disease in all vascular territories. Today, he had an acute mental status change and was obtunded. Rapid response and stroke alert was called. His initial NIH stroke scale was 22. Dr. goldstein had conversations with Dr. Ulloa and neurology as well as Dr. sierra with gastroenterology. GI feels comfortable with giving thrombolytics and neurology feels strongly that this patient would benefit from systemic IV TPA therapy. I evaluated the patient on arrival to the intensive care unit. The patient is arousable, but very somnolent. He is Armenian speaking, and it is very difficult to ascertain whether or not he can follow commands. He does move all extremities spontaneously, although it appears that his left side is weaker than his right. He has noted facial droop. CT head is negative for acute hemorrhage. CTA head neck is significant for the same multivessel cerebrovascular disease that was present on admission. Given the high-risk nature of the stroke as well as his acute anemia this hospitalization, in preparation for giving emergent IV systemic TPA, I placed an arterial line as well as a large-bore peripheral IV so that we could draw serial labs, monitor his hemoglobin, and give blood products if necessary. I also had an additional discussion with the family where I reconfirmed that their goals were aggressive and they fully understood the significant risk of life-threatening hemorrhage associated with systemic TPA in a patient with new anemia and suspected GI bleeding. The family expressed understanding of his condition and understanding of the heightened risk of life-threatening bleeding, but still urged that we needed to get TPA. Immediately after giving IV TPA, patient had a tonic clonic seizure (witnessed on EEG) and became obtunded with acute hypoxic and hypercarbic respiratory failure and was emergently intubated (see separate procedure note for details). 11/10: remains intubated. encephalopathy persists. hgb stable s/p TPA. ~350cc bloody OG tube output, but this is slowing down. 11/11: more awake. on SBT. follows commands. 11/12: remains extubated. off vasopressors. no changes in mental status. 11/18/17 CCM Reconsult Note Patient was transferred to ICU today after a Halicat was called for AMS, hypoxia , high fever. Apparently patient was lethargic since a.m. in the last hour had been unresponsive and hence Halicat was called. Patient had a fever of 101.4 in a.m., T-max is 101.6. I immediately evaluated the patient in the ICU. Patient is completely unresponsive, oxygen saturation 87% on 4 L nasal cannula. Hypopneic. No response to deep pain. Patient was confirmed to be a full code and I proceeded with endotracheal intubation place him on mechanical ventilation as patient was not protecting airway. More history was obtained from discussion with ID Dr. Jalloh. She indicated patient had been increasingly lethargic with fever and also had urinary retention.She has discontinued Ertapenem, and started on meropenem, vancomycin and micafungin. Cultures have been sent and are pending now. Source of sepsis appears to be aspiration pneumonia versus UTI. Repeat UA and panculture pending at this time. Patient was borderline hypotensive prior to intubation and I have started on Levophed to avoid hypotension post intubation. Receiving 1 L normal saline bolus now, give additional fluid bolus if patient requires continued Levophed will place central line 11/19: remains intubated. holding aggrenox for possible thoracentesis today, but family hesitant to consent with concerns over bleeding risk. Cr remains elevated. discussion with Dr. Bernal, unlikely to benefit currently from draining effusion, so at his recommendation, will proceed with attempted weaning from mechanical ventilation and treat effusion conservatively. 11/20: Overnight /early this a.m. ,the patient was noted to have large amount of rectal bleeding. Aggrenox held since 11/18, 2/2 reintubation. Type and screen ordered. Serial H&H currently be performed. Hemodynamically stable. GI has been reconsulted. Protonix previously given PRN, will schedule BID. Patient was reintubated emergently 11/18, plan for continue CPAP trials. Tube feedings until evaluation by GI. ASA placed on hold , in the setting of GI bleeding. 11/21: EGD and colonoscopy performed yesterday. Patient was noted to be constipated ,disimpacted per GI. Patient noted to have hemorrhoids which was clipped. No further bleeding throughout the night. Chest x-ray showed improvement. CPAP trials initiated this a.m.. ASA 81 mg resumed. 11/22: Patient tolerated CPAP trials approximately 13 hours yesterday. Initiation of tube feeds per GI yesterday, no residuals. This am , family concerned patient not responsive. CT brain , ammonia level and EEG pending. Neurology has been reconsulted. Upon my entering the room, this afternoon, the patient was awake, tracking and squeezing my hand upon commands, with right hand. The patient received 1 u PRBC for Hgb 7.2. Post transfusion CBC pending. Plan for quantification of pleural fluid for possible thoracentesis in a.m.. 11/23: No acute events overnight. Patient remains off all sedation. Noted spontaneous eye opening, tracking following commands squeezing hands right greater than left. Neurology following plan for MRI this a.m., repeat EEG pending. Hemoglobin stable this a.m.. Chest x-ray slight improvement, plan for quantification via ultrasound of pleural effusions for possible thoracentesis today. 3 failed attempts at CPAP trials yesterday. 1548-MRI resulted findings consistent of small areas of acute cortical infarct, new since 11/09/2017. I contacted neurology, Dr. Geronimo informed of results. After Dr. Palma's review of imaging and records, it was determined most likely cardioembolic since is affecting both sides and failure with aspirin and Persantine. Ischemic stroke heparin protocol initiated. Careful review secondary to patient history of GI bleed 11/20, thought to be emanating from hemorrhoid ,however due to poor suboptimal prep, they unable to have optimal visualization per Dr. Jones. 11/24: Late entry note. Patient seen and evaluated 614. No acute events overnight. Patient continues on heparin infusion no active signs of bleeding. PTT within therapeutic range. The patient is less responsive this a.m., spontaneous eye opening, not following my commands. Not moving his extremities spontaneously for me as previously performed yesterday. tube feeds reinitiated. Chest x-ray showed further improvement in aeration of lungs the patient continues on FiO2 of 0.35. Plan for CPAP trials today. 11/25: No acute events overnight. Neurological status unchanged. Spontaneous eye opening patient continues not following any commands. Dr. Geronimo at bedside evaluating patient, no change. Patient tolerated CPAP trials approximately 12 hours yesterday. Tolerating tube feeds. Chest x-ray remains unchanged from yesterday. Hemoccult stool negative. Heparin infusion continued. family at bedside. 11/26: Late entry note. Patient seen at 1240pm. Last night the patient was noted to be continuously hyperglycemic. Levemir added to medication regimen 10 mg/day hemoglobin dropped 2 g/dL in 2 days hemoglobin now 7.7, patient to be transfused 1 unit packed red blood. No obvious signs of bleeding Hemoccult was negative. Patient continues on heparin infusion, patient may require tracheostomy and PEG in the near future . Plan to transition to p.o. anticoagulation post procedures. Neurologically the status is unchanged the patient is opens eyes spontaneously no movement of extremities upon my evaluation. Continued CPAP trials currently greater than 6 hours. 11/27: At 1000am, the patient was noted to have melena, approximated at 150 cc per RN evaluation. Heparin infusion discontinued/placed on hold at 10 AM. Stool for Hemoccult blood sent, GI was contacted and informed of the above events. Stat CT of the abdomen and pelvis with p.o. contrast ordered, results pending. Patient previously had been tolerating trickle feeds at 10 cc an hour with no residuals, after initiation of Reglan 5 mg every 8 hours yesterday. Neurologically the patient status is unchanged. Patient does have spontaneous eye opening but does not follow my commands and does not move extremities. Patient's daughter is at bedside, discussed the above events at which she was present for, she is requesting a repeat colonoscopy. I informed her that a CT of the abdomen and pelvis will be obtained, serial hemoglobin will be evaluated and if needed transfusion will be provided and gastroenterology has been contacted and will determine further management if an invasive procedure is required. Hemoglobin continues to be monitored serially, results pending for 10 AM. The patient received 1 unit packed red blood cells, and current hemoglobin trended overnight 8.9 to 8.2 this a.m., posttransfusion. 11/28: hgb continues to decline despite being off heparin. no additional GI interventions are available at this time. clearly the patient has failed anticoagulation with 2 life-threatening bleeding episodes. Although it is clear he may have additional strokes off anticoagulation, we have clear evidence that we are hurting his overall clinical care with his anticoagulation. I explained this at length to the daughter and medical decision maker. however, she insists that she would rather see him of bleeding rather than have any more strokes , and insists that "we can always keep giving him blood". I explained that blood is not without risk, and there is significant risk to anticoagulation, but she is insistent that he be given anticoagulation to prevent further strokes and she has weighed the risks and benefits after having full informed consent, insists upon us restarting the heparin drip. At her insistence, I have restarted it. In addition, I have counseled her that I do not think he will survive this hospitalization, and he will require tracheostomy for further aggressive care. She states that we are not at "day 14" on the vent, and it is not time for a tracheostomy yet. This is a second intubation and we are certainly at risk for complications from endotracheal intubation, and tracheostomy would be the most appropriate next step for this patient, but the family is refusing until WednesdayDecember 01. 11/29 Patient remains intubated, on no sedation. Afebrile. 11/30 No events overnight. Patient tolerated CPAP for most of day yesterday. Remains on Heparin drip. 12/01 Patient remains intubated tolerated CPAP for several hrs yesterday. s/p CT guided right thoracentesis with removal 500ml pleural fluid. On Heparin drip 12/02 No events overnight. Heparin drip stopped this morning for trach and PEG placement today. Afebrile. 12/03 Patient s/p trach and PEG tube placement yesterday. Had bleeding from around trach and PEG tube insertion sites Heparin drip held last night. s/p transfusion 1u PRBC yesterday Hgb 8.0 this morning. Afebrile. On no sedation. 12/04: Continues to have bruising from PEG tube insertion site. Trach site appears to have stopped. Hemoglobin 7 the same receiving 1 unit FFP and 1 PRBCs. Tube feeds of been resumed. On no sedation. 12/05: Afebrile. No further bleeding noted from the tracheostomy site. Overnight reported by the RN that the PEG tube site continues to bleed Surgicel was placed around the opening, small amount of bleeding still noted. Patient hemoglobin remained 7 patient to be transfused 1 unit PRBC's fibrinogen level pending INR within normal limits. 12/06 Patient s/p transfusion 2u PRBC yesterday Hgb 9.5 this morning from 7.2 last night. No bleeding from trach site however patient still having rectal bleeding. 12/07 No events overnight. On ventilator via trach Hgb 9.8 this morning for colonoscopy today. 12/08: seen and examined around 06:30am. no significant change in mental status. hgb 8.9 this AM. remains on heparin drip at [facility]. 12/09: no improvements or changes. very deconditioned. garcia has remained in without clear indication. had 1 episode of urinary retention, but this is a clear source of infection and an additional serious infection would certainly be life-threatening. 12/10 Patient is now on TP's with 28% FIO2, Afebrile. On Heparin drip. 12/11: remains on t-piece x > 48h. no change in neuro exam. remains on heparin drip with stable hgb 7.8. 12/12: asked to see patient again today by the hospitalist service for change in condition. I have evaluated the patient and he does not clinically appear any different than yesterday. HR actually lower than yesterday. bladder scan suggestive of 600cc retention. patient has had urinary retention before, although has also had multiple hospital acquired urinary tract infections. risk/ benefit at this time would be in favor of serial q6h straight catheterizations. remains hemodynamically stable. some emesis today and evidence of ileus. 12/31 Reconsult for resp distress Patient is 77 yo with chronic resp failure, trach/PEG tube placement, [place] [facility] trach changes to #6 and patient was placed on mechanical ventilation. CXR showed increasing consolidation patient was given Lasix prior [place] [facility] 01/01 Patient is on ventilator via trach. Afebrile. 01/02 No events overnight. On no drips, Afebrile, CPAP 15/5 with 35% FIO2 overnight. 01/03 Remained on TP breathing comfortably. CXR shows bilateral effusions. Will get CT chest. Give single dose of lasix. ID consulted and following, no fever in 24 hours 01/04: Remains unresponsive, fever trending down. Sputum culture now growing Klebsiella and ESBL E. coli. Urine culture and wound culture also growing ESBL E. coli. Chest tube placed on the right side yesterday with 1.35 L output since placement. Urine output excellent with single dose of Lasix 2.5 L in 24 hours. No fever in 24 hours. Repeat 40 mg IV Lasix [facility] RECONSULT NOTE 02/08/18: Mr. Glynn is a 77-year-old man who is known to our service. In short, he was initially admitted with possible optic neuritis versus temporal arteritis in September. Care complicated by an STEMI, multiple infections with healthcare associated pneumonia UTIs. During hospitalization he also received TPA for Stroke, MRI of the brain performed on 12/24/2017, showed infarction involving the left corpus callosum and splenium of the corpus callosum. The patient had undergone tracheostomy placement. And since last month had been on hospitalist service and off ventilator. He is currently receiving Levaquin for stenotrophomonas infection, Diflucan for candidemia. Apparently patient was noted to aspirate earlier this a.m. At 7250 AM patient was found unresponsive pulseless rhythm asystole and CPR was started. Total 3 amp of epinephrine given. Patient had a cuff less trach with evidence of aspiration, large amount of tube feeds aspirated from tracheostomy tube. This was exchanged for a 8.0 Shiley tracheostomy cuffed. With improved bag and mask ventilation and after 3 epinephrine, 1 amp of calcium, 1 amp of bicarb, patient regained ROSC SUBJ 02/09/18: Remains very critical not on any sedation he is unresponsive eyes are spontaneously open but no tracking. Very slight withdrawal to pain on the upper extremities. CT of the head unremarkable. Currently borderline hypotensive off pressors. Received 2 units of PRBC for hemoglobin 6.6 yesterday. Prognosis remained poor. Neurology consulted per family request 02/10/18: Remains critical with no improvement in neuro status or clinical status. Eyes are spontaneously open but no response to threat no tracking. Neurology consulted MRI and EEG pending at this time. Currently remains on Levophed at 1 mcg/min. Chest x-ray with bilateral infiltrates sputum culture growing GNR. Na 155. Free water flushes and half-normal saline rate increased. 02/11: Remains unresponsive off all sedation. Osmolality slowly returning to baseline. Antibiotics appropriate for organism. Tube feeds tolerated at 50 mL' s per hour. Unable to wean from mechanical ventilation. 02/12: Osmolality slowly returning to baseline. Tube feeds now tolerated at 60 mL's per hour. Unable to wean from mechanical ventilation due to fatigue. 02/13: Placed on spontaneous breathing trial this morning but required 18 of pressure support to maintain an adequate minute volume. Will work from this point and attempt to wean pressure support over the next many days. Will place back on mechanical rate nightly. Anticoagulation is been particularly cumbersome and made more difficult by Diflucan. Will restart Coumadin again this morning as INR is declined to 2.2 02/14: Remains very weak. Essentially unresponsive. Tolerates brief periods of spontaneous breathing trial blood pressure support must be markedly elevated to the 1820 range. State of hydration gradually improving as osmolality declines and serum creatinine improves. Will continue hypotonic solutions IV. 02/15: Remains unresponsive. Continues to fail spontaneous breathing trials due to lack of respiratory effort. Suffers from tachypnea with an efficient small tidal volumes regardless of the amount of pressure support. 02/16: Onset of copious watery diarrhea is contaminating buttock wounds. We will insert a dignity shield system for fecal management. Remains unresponsive to noxious stimulation. He does have a weak cough reflex. 02/17: Patient is weaker on attempts at spontaneous breathing trials today. Patient remains unresponsive. Only reaction is a weak cough to suctioning. 02/18: Patient continues to do poorly on attempts at spontaneous breathing trials. Urine output is improved with diuresis, will follow renal function closely. 02/19: Albumin 1.1, further evidence that the patient is deteriorating. Responds to diuretics but prerenal azotemia quickly develops. 02/20: Ongoing attempts to remove excess soft tissue and pleural water consistently resolved and renal impairment. Unfortunately this is largely caused by his poor nutritional status. Despite sufficient nutritional support he continues to deteriorate clinically. 02/21: no improvements in function. still grossly anasarca. Cr worsening again. hypernatremia persists. 02/22: no changes. intermittently tachycardic. still gently diuresing. outlook poor. 02/23: no improvements. anemic this AM requiring transfusion of prbc. Family refuses to allow the holding of anticoagulation given multiple recent CVA, so anticoagulation will continue despite anemia. remains hypernatremic despite therapy. 02/24: no changes or improvements. HR came down with transfusion of prbc yesterday. 02/25: hgb stable. Cr worsens slightly. metabolic derangements have improved somewhat and sodium improving. no improvement in neurologic status. poor prognosis. 02/26, 02/27: Remains on mech ventilation via trach. No improvement in neuro status. 02/28: A.m. laboratories pending. Afebrile. No new changes overnight. 03/01: Remains on mechanical ventilation via tracheostomy. Neurologically unchanged. 03/02: Remains on mechanical ventilation via tracheostomy. Remains encephalopathic with no change in neurologic status. 03/03, 03/04, 03/05, 03/06: Remains encephalopathic on mechanical ventilation via tracheostomy. No change in neuro status. Objective Vital Signs / I&O: Vital Signs 03/05/18 14:00 03/05/18 15:39 03/05/18 16:00 Temperature 97.7 F Pulse Rate 78 90 Respiratory Rate 18 20 Blood Pressure 109/63 Pulse Oximetry 97 97 03/05/18 18:00 03/05/18 19:58 03/05/18 20:00 Temperature 97.3 F L Pulse Rate 85 83 Respiratory Rate 17 16 Blood Pressure 144/81 H Pulse Oximetry 99 98 03/05/18 22:00 03/05/18 23:21 03/06/18 00:00 Temperature 97.8 F Pulse Rate 82 82 Respiratory Rate 16 18 Blood Pressure 132/70 Pulse Oximetry 98 96 03/06/18 02:00 03/06/18 03:16 03/06/18 04:00 Temperature 97.6 F Pulse Rate 82 83 Respiratory Rate 18 14 Blood Pressure 126/71 Pulse Oximetry 97 03/06/18 06:00 03/06/18 07:26 03/06/18 08:00 Temperature 97.6 F Pulse Rate 88 84 Respiratory Rate 28 H 17 Blood Pressure 103/59 L Pulse Oximetry 99 98 03/06/18 10:00 03/06/18 12:00 Temperature 97.8 F Pulse Rate 86 88 Respiratory Rate 20 Blood Pressure 118/61 Pulse Oximetry 98 Intake & Output 03/05/18 03/06/18 03/06/18 18:59 06:59 18:59 Intake Total 1461 / 1461 1547 / 1547 Output Total 1500 / 1500 1150 / 1150 Balance -39 / -39 397 / 397 Weight 89.9 kg Intake: IV 50 / 50 50 / 50 Avycaz Inj 1.25 GM In NS Inj 50 50 / 50 50 / 50 ML @ 25 mls/hr IV.SIG Q12HR EDE Rx#:[id number] Oral 0 / 0 Tube Feeding 711 / 711 797 / 797 Water Bolus Amount 700 / 700 600 / 600 Other 100 / 100 Output: Stool 300 / 300 50 / 50 Urine Amount (Catheter) 1200 / 1200 1100 / 1100 Indwelling Urethral Catheter 1200 / 1200 1100 / 1100 Other: Date of Last Bowel Movement 03/05/18 03/05/18 03/05/18 # Bowel Movements 1 # Incontinent Bowel Movements 0 Result Diagrams: 03/05/18 03:32 03/05/18 03:32 Objective Remarks: GENERAL: Patient is 77 yo encephalopathic, unresponsive on the vent. Eyes are closed. SKIN: Warm and dry. Stage IV sacral decubitus, surrounding buttocks excoriation. HEAD: Normocephalic. Tongue moist. EYES: No scleral icterus. No injection. PRABHA. NECK: Cuffed tracheostomy tube in place 6.0. Moderate secretions persist. CARDIOVASCULAR: normal rate, regular rhythm. S1, S2. No S4. No JVD. RESPIRATORY: Diminished breath sounds in the bases bilaterally. Persistent scattered rhonchi anteriorly and posteriorly GASTROINTESTINAL: Abdomen soft. PEG tube site clean and dry MUSCULOSKELETAL: No cyanosis. Generalized edema. NEURO: Eyes are closed. Unresponsive to stimulation in all 4 limbs. Weak cough reflex. Assessment and Plan - Assessment and Plan Plan: Assessment: Asystole/Cardiac arrest Worsening encephalopathy most likely anoxia contributing Aspiration pneumonia Acute on chronic hypoxemic and hypercapnic resp failure Combined shock, septic and cardiogenic Healthcare associated pneumonia, stenotrophomonas now with multidrug resistant Klebsiella pneumonia Candidemia -treated UTI with ESBL E. coli CVA Anemia requiring transfusion Sacral decubitus ulcer s/p NSTEMI Optic neuritis Status post tracheostomy and PEG tube placement Acute protein calorie malnutrition- severe Acute kidney injury Hypokalemia Plan: Impression: Neuro -Acute worsening of encephalopathy secondary to systolic cardiac arrest, anoxia -CT head 02/08/[address] Pereira reconsulted per family request -History of L ENID infarct. Status post systemic TPA on November 09 -Neuropsychology has followed. Continue with methylphenidate 10 mg twice daily -Optic neuritis. Status post treatment with IV hydrocortisone -Remains unresponsive. CV: -Asystole/cardiac arrest seems secondary to hypoxia and hypercapnia from severe aspiration -s/p IV fluid normal saline 2 L bolus, 2U PRBC -half-normal saline discontinued 02/28 along with furosemide 40 mg twice daily. Continue free water flushes at 300 mL every 6 -Continue warfarin currently 1 mg daily as per pharmacy's recommendation -Echo 10/19: LV systolic function is moderately reduced, EF 40-45%. Cardiology has followed Dr. Hernández -Doxazosin 2mg daily and carvedilol 3.125mg BID on hold due to hypotension. On atorvastatin 80mg qhs -As needed Midrin 10 every 8 as needed Pulm: -Cardiac arrest seems to be secondary to respiratory arrest. Evidence of aspiration at the time of arrest -Cuff less tracheostomy tube removed and new Shiley 8 cuffed tracheostomy placed 02/08/18 -PRVC/AC ventilation. Albuterol/ipratropium every 6 hours while awake scheduled and albuterol aerosols every 2 hours as needed -Failed CPAP due to apnea -ICU vent bundle. Pulm toilet, trach care. GI -Currently tube feeds at goal with vital 1.5 at 60 cc an hour. continue as tolerated. -On famotidine 10mg BID -Free water flushes 300 mils every 6 hours -Having BMs on polyethylene glycol 17 g daily -Tube feeds with vital 1.5 at 60 mL's per hour 02/12. Continue with hydrocortisone suppository twice daily [id number] 1% per rectal every 6 hours ordered Renal/: -Monitor renal function, electrolytes replacement per protocol. ID -Patient was receiving levofloxacin for stenotrophomonas, fluconazole for candidemia -Added meropenem 02/08/18 for previous ESBL E. coli HCAP. Currently on ceftazidime 1.25 g every 12 hours -Previous UTI with ESBL E. coli, Previous healthcare associated pneumonia with Klebsiella and ESBL E. coli -ID Dr. Jalloh following Skin -Sacral wound-Seen by Plastic surgery; debridement declined per patient's family -Wound care is following- apply dressings per wound management recommendations Heme: -Status post 2 units PRBC on 02/08/2018 now s/p additional 2 units prbc on 02/23 for recurrent anemia. -Previous GI bleed; Status post EGD colonoscopy. GI has signed off, patient with healed rectal ulcers and hemorrhoids. -INR currently 1.9.d pending Endo -On SSI with R insulin. Insulin detemir 30 units twice daily for glycemic control GI prophylaxis- on famotidine DVT prophylaxis- On warfarin and adjusted per pharmacy consultation. A.m. INR pending Overall impression: Patient remains critically ill after aspiration with hypoxemic and hypercarbic respiratory failure leading to asystolic cardiac arrest. Ten minutes of CPR with return of spontaneous circulation after aggressive resuscitation following CPR, patient remains hypoxemic and encephalopathy. Remains unresponsive, weak respiratory effort is ineffective during spontaneous trials, unable to begin weaning from ventilator. Prognosis remains poor. Family unrealistic with goals of care and press on for aggressive measures. no meaningful improvements in months.
[2018-03-06] MEDS ORDERED: Sodium Polystyrene Sulfonate/Sorbitol Liq 15 GM/60 ML UDC G-TUBE ONE (13:00)
--- NOTE | 2018-03-06 16:21 | P.PNPL ---
Subjective Interval history: 77 YO male with VDRF, encephalopathy Had episode of desaturation yesterday Now on AC 15, Fi02 40% PEEP 8 Tolerated CPAP briefly Physical Exam Vital signs: Vital Signs 03/05/18 18:00 03/05/18 19:58 03/05/18 20:00 Temperature 97.3 F L Pulse Rate 85 83 Respiratory Rate 17 16 Blood Pressure 144/81 H Pulse Oximetry 99 98 03/05/18 22:00 03/05/18 23:21 03/06/18 00:00 Temperature 97.8 F Pulse Rate 82 82 Respiratory Rate 16 18 Blood Pressure 132/70 Pulse Oximetry 98 96 03/06/18 02:00 03/06/18 03:16 03/06/18 04:00 Temperature 97.6 F Pulse Rate 82 83 Respiratory Rate 18 14 Blood Pressure 126/71 Pulse Oximetry 97 03/06/18 06:00 03/06/18 07:26 03/06/18 08:00 Temperature 97.6 F Pulse Rate 88 84 Respiratory Rate 28 H 17 Blood Pressure 103/59 L Pulse Oximetry 99 98 03/06/18 10:00 03/06/18 12:00 03/06/18 14:00 Temperature 97.8 F Pulse Rate 86 88 84 Respiratory Rate 20 Blood Pressure 118/61 Pulse Oximetry 98 03/06/18 15:56 Temperature Pulse Rate Respiratory Rate 15 Blood Pressure Pulse Oximetry 99 Intake & Output 03/05/18 03/06/18 03/06/18 18:59 06:59 18:59 Intake Total 1461 / 1461 1547 / 1547 50 / 50 Output Total 1500 / 1500 1150 / 1150 Balance -39 / -39 397 / 397 50 / 50 Weight 89.9 kg Intake: IV 50 / 50 50 / 50 50 / 50 Avycaz Inj 1.25 GM In NS Inj 50 50 / 50 50 / 50 50 / 50 ML @ 25 mls/hr IV.SIG Q12HR EDE Rx#:[id number] Oral 0 / 0 Tube Feeding 711 / 711 797 / 797 Water Bolus Amount 700 / 700 600 / 600 Other 100 / 100 Output: Stool 300 / 300 50 / 50 Urine Amount (Catheter) 1200 / 1200 1100 / 1100 Indwelling Urethral Catheter 1200 / 1200 1100 / 1100 Other: Date of Last Bowel Movement 03/05/18 03/05/18 03/05/18 # Bowel Movements 1 # Incontinent Bowel Movements 0 GENERAL: Elderly male on Vent SKIN: Warm and dry. HEAD: Normocephalic. EYES: No scleral icterus. No injection or drainage. NECK: Supple, trachea midline. No JVD or lymphadenopathy Has Trach. CARDIOVASCULAR: Regular rate and rhythm without murmurs, gallops, or rubs. RESPIRATORY: Breath sounds equal bilaterally. No accessory muscle use. GASTROINTESTINAL: Abdomen soft, non-tender, nondistended. has PEG MUSCULOSKELETAL: No cyanosis, or edema. BACK: Nontender without obvious deformity. No CVA tenderness. - Urinary Catheter Management Straight Cath placed during this visit: yes Urethral indwelling: Yes Reason for continuing: Acute urinary retention Insertion date: 01/21/18 Insertion time: 08:00 Indwelling Urethral Catheter Cath placed during this visit: yes, but has since been removed by the nurse Urethral indwelling: Yes Reason for continuing: Severe pressure ulcer/wound Insertion date: 01/21/18 Insertion time: 16:18 Removal date: 01/20/18 Removal time: 15:15 Assessment and Plan - Plan IMPRESSION: RF, s/p Trach Encephalopathy S/P GA Decubitus PLAN: Cont vent support Aerosol nebs Tube Feeding Cont TF Dr Bernal will FU in AM.
[2018-03-07] MEDS: Insulin NovoLIN Regular Correctional Sugar Inj SQ SCH ×4 (00:59→18:07)
[2018-03-07 04:59] LABS: Hematocrit 25.5 % (39.0-51.0); Hemoglobin 8.4 gm/dL (13.0-17.0); Mean Corpuscular HGB Conc 32.9 % (32.0-36.0); Mean Corpuscular Hemoglobin 27.2 pg (27.0-34.0); Mean Corpuscular Volume 82.4 fL (80.0-100.0); Mean Platelet Volume 8.9 fL (7.0-11.0); Platelet Count 286 th/mm3 (150-450); Red Cell Distribution Width 20.7 % (11.6-17.2); White Blood Count 8.8 th/mm3 (4.0-11.0)
[2018-03-07 05:07] LABS: INR 1.6 Ratio; Prothrombin Time 16.3 sec (9.8-11.6)
[2018-03-07 05:18] LABS: Calcium 7.8 mg/dL (8.5-10.1); Carbon Dioxide 28.8 meq/L (21.0-32.0); Potassium 5.1 meq/L (3.5-5.1)
[2018-03-07] MEDS: Ceftazidime/Avibactam Inj 1.25 GM in Sodium Chlor 0.9% Inj 50 ML IV.SIG SCH ×2 (08:19→22:02)
[2018-03-07] MEDS: Famotidine 20 MG Tablet PO SCH ×2 (08:19→22:04)
[2018-03-07] MEDS: Hypromellose 0.3% Opth Gel 10 GM Bottle EACH EYE SCH ×2 (08:20→22:02)
[2018-03-07] MEDS: Insulin Detemir Inj 1,000 UNIT/10 ML Vial SQ SCH ×2 (08:20→22:04)
[2018-03-07] MEDS: Hydrocortisone Acetate 25 MG Supp RECTAL SCH ×3 (08:21→22:03)
[2018-03-07] MEDS: Collagenase Oint 30 GM Tube TOPICAL SCH (09:15)
[2018-03-07] MEDS: Polyethylene Glycol 3350 17 GM Packet PO SCH (09:15)
--- NOTE | 2018-03-07 12:01 | P.PNCC ---
Subjective Subjective Remarks/Hospital Course: This is a 77-year-old male who initially presented with vision changes and concern for optic neuritis versus temporal arteritis. His initial presentation was on 10/14. His hospital course has been complicated by an NSTEMI with troponins which peaked at 10, ESBL E. coli urinary tract infection, rectal bleeding suspected from bleeding hemorrhoids, acute anemia secondary to blood loss with hemoglobin started around 14 and is trended down to 9.7 this morning. On his initial MRA he was found to have significant atherosclerotic cerebrovascular disease in all vascular territories. Today, he had an acute mental status change and was obtunded. Rapid response and stroke alert was called. His initial NIH stroke scale was 22. Dr. goldstein had conversations with Dr. Ulloa and neurology as well as Dr. sierra with gastroenterology. GI feels comfortable with giving thrombolytics and neurology feels strongly that this patient would benefit from systemic IV TPA therapy. I evaluated the patient on arrival to the intensive care unit. The patient is arousable, but very somnolent. He is Latvian speaking, and it is very difficult to ascertain whether or not he can follow commands. He does move all extremities spontaneously, although it appears that his left side is weaker than his right. He has noted facial droop. CT head is negative for acute hemorrhage. CTA head neck is significant for the same multivessel cerebrovascular disease that was present on admission. Given the high-risk nature of the stroke as well as his acute anemia this hospitalization, in preparation for giving emergent IV systemic TPA, I placed an arterial line as well as a large-bore peripheral IV so that we could draw serial labs, monitor his hemoglobin, and give blood products if necessary. I also had an additional discussion with the family where I reconfirmed that their goals were aggressive and they fully understood the significant risk of life-threatening hemorrhage associated with systemic TPA in a patient with new anemia and suspected GI bleeding. The family expressed understanding of his condition and understanding of the heightened risk of life-threatening bleeding, but still urged that we needed to get TPA. Immediately after giving IV TPA, patient had a tonic clonic seizure (witnessed on EEG) and became obtunded with acute hypoxic and hypercarbic respiratory failure and was emergently intubated (see separate procedure note for details). 11/10: remains intubated. encephalopathy persists. hgb stable s/p TPA. ~350cc bloody OG tube output, but this is slowing down. 11/11: more awake. on SBT. follows commands. 11/12: remains extubated. off vasopressors. no changes in mental status. 11/18/17 CCM Reconsult Note Patient was transferred to ICU today after a Halicat was called for AMS, hypoxia , high fever. Apparently patient was lethargic since a.m. in the last hour had been unresponsive and hence Halicat was called. Patient had a fever of 101.4 in a.m., T-max is 101.6. I immediately evaluated the patient in the ICU. Patient is completely unresponsive, oxygen saturation 87% on 4 L nasal cannula. Hypopneic. No response to deep pain. Patient was confirmed to be a full code and I proceeded with endotracheal intubation place him on mechanical ventilation as patient was not protecting airway. More history was obtained from discussion with ID Dr. Jalloh. She indicated patient had been increasingly lethargic with fever and also had urinary retention.She has discontinued Ertapenem, and started on meropenem, vancomycin and micafungin. Cultures have been sent and are pending now. Source of sepsis appears to be aspiration pneumonia versus UTI. Repeat UA and panculture pending at this time. Patient was borderline hypotensive prior to intubation and I have started on Levophed to avoid hypotension post intubation. Receiving 1 L normal saline bolus now, give additional fluid bolus if patient requires continued Levophed will place central line 11/19: remains intubated. holding aggrenox for possible thoracentesis today, but family hesitant to consent with concerns over bleeding risk. Cr remains elevated. discussion with Dr. Bernal, unlikely to benefit currently from draining effusion, so at his recommendation, will proceed with attempted weaning from mechanical ventilation and treat effusion conservatively. 11/20: Overnight /early this a.m. ,the patient was noted to have large amount of rectal bleeding. Aggrenox held since 11/18, 2/2 reintubation. Type and screen ordered. Serial H&H currently be performed. Hemodynamically stable. GI has been reconsulted. Protonix previously given PRN, will schedule BID. Patient was reintubated emergently 11/18, plan for continue CPAP trials. Tube feedings until evaluation by GI. ASA placed on hold , in the setting of GI bleeding. 11/21: EGD and colonoscopy performed yesterday. Patient was noted to be constipated ,disimpacted per GI. Patient noted to have hemorrhoids which was clipped. No further bleeding throughout the night. Chest x-ray showed improvement. CPAP trials initiated this a.m.. ASA 81 mg resumed. 11/22: Patient tolerated CPAP trials approximately 13 hours yesterday. Initiation of tube feeds per GI yesterday, no residuals. This am , family concerned patient not responsive. CT brain , ammonia level and EEG pending. Neurology has been reconsulted. Upon my entering the room, this afternoon, the patient was awake, tracking and squeezing my hand upon commands, with right hand. The patient received 1 u PRBC for Hgb 7.2. Post transfusion CBC pending. Plan for quantification of pleural fluid for possible thoracentesis in a.m.. 11/23: No acute events overnight. Patient remains off all sedation. Noted spontaneous eye opening, tracking following commands squeezing hands right greater than left. Neurology following plan for MRI this a.m., repeat EEG pending. Hemoglobin stable this a.m.. Chest x-ray slight improvement, plan for quantification via ultrasound of pleural effusions for possible thoracentesis today. 3 failed attempts at CPAP trials yesterday. 1548-MRI resulted findings consistent of small areas of acute cortical infarct, new since 11/09/2017. I contacted neurology, Dr. Geronimo informed of results. After Dr. Palma's review of imaging and records, it was determined most likely cardioembolic since is affecting both sides and failure with aspirin and Persantine. Ischemic stroke heparin protocol initiated. Careful review secondary to patient history of GI bleed 11/20, thought to be emanating from hemorrhoid ,however due to poor suboptimal prep, they unable to have optimal visualization per Dr. Jones. 11/24: Late entry note. Patient seen and evaluated 614. No acute events overnight. Patient continues on heparin infusion no active signs of bleeding. PTT within therapeutic range. The patient is less responsive this a.m., spontaneous eye opening, not following my commands. Not moving his extremities spontaneously for me as previously performed yesterday. tube feeds reinitiated. Chest x-ray showed further improvement in aeration of lungs the patient continues on FiO2 of 0.35. Plan for CPAP trials today. 11/25: No acute events overnight. Neurological status unchanged. Spontaneous eye opening patient continues not following any commands. Dr. Geronimo at bedside evaluating patient, no change. Patient tolerated CPAP trials approximately 12 hours yesterday. Tolerating tube feeds. Chest x-ray remains unchanged from yesterday. Hemoccult stool negative. Heparin infusion continued. family at bedside. 11/26: Late entry note. Patient seen at 1240pm. Last night the patient was noted to be continuously hyperglycemic. Levemir added to medication regimen 10 mg/day hemoglobin dropped 2 g/dL in 2 days hemoglobin now 7.7, patient to be transfused 1 unit packed red blood. No obvious signs of bleeding Hemoccult was negative. Patient continues on heparin infusion, patient may require tracheostomy and PEG in the near future . Plan to transition to p.o. anticoagulation post procedures. Neurologically the status is unchanged the patient is opens eyes spontaneously no movement of extremities upon my evaluation. Continued CPAP trials currently greater than 6 hours. 11/27: At 1000am, the patient was noted to have melena, approximated at 150 cc per RN evaluation. Heparin infusion discontinued/placed on hold at 10 AM. Stool for Hemoccult blood sent, GI was contacted and informed of the above events. Stat CT of the abdomen and pelvis with p.o. contrast ordered, results pending. Patient previously had been tolerating trickle feeds at 10 cc an hour with no residuals, after initiation of Reglan 5 mg every 8 hours yesterday. Neurologically the patient status is unchanged. Patient does have spontaneous eye opening but does not follow my commands and does not move extremities. Patient's daughter is at bedside, discussed the above events at which she was present for, she is requesting a repeat colonoscopy. I informed her that a CT of the abdomen and pelvis will be obtained, serial hemoglobin will be evaluated and if needed transfusion will be provided and gastroenterology has been contacted and will determine further management if an invasive procedure is required. Hemoglobin continues to be monitored serially, results pending for 10 AM. The patient received 1 unit packed red blood cells, and current hemoglobin trended overnight 8.9 to 8.2 this a.m., posttransfusion. 11/28: hgb continues to decline despite being off heparin. no additional GI interventions are available at this time. clearly the patient has failed anticoagulation with 2 life-threatening bleeding episodes. Although it is clear he may have additional strokes off anticoagulation, we have clear evidence that we are hurting his overall clinical care with his anticoagulation. I explained this at length to the daughter and medical decision maker. however, she insists that she would rather see him of bleeding rather than have any more strokes , and insists that "we can always keep giving him blood". I explained that blood is not without risk, and there is significant risk to anticoagulation, but she is insistent that he be given anticoagulation to prevent further strokes and she has weighed the risks and benefits after having full informed consent, insists upon us restarting the heparin drip. At her insistence, I have restarted it. In addition, I have counseled her that I do not think he will survive this hospitalization, and he will require tracheostomy for further aggressive care. She states that we are not at "day 14" on the vent, and it is not time for a tracheostomy yet. This is a second intubation and we are certainly at risk for complications from endotracheal intubation, and tracheostomy would be the most appropriate next step for this patient, but the family is refusing until WednesdayDecember 01. 11/29 Patient remains intubated, on no sedation. Afebrile. 11/30 No events overnight. Patient tolerated CPAP for most of day yesterday. Remains on Heparin drip. 12/01 Patient remains intubated tolerated CPAP for several hrs yesterday. s/p CT guided right thoracentesis with removal 500ml pleural fluid. On Heparin drip 12/02 No events overnight. Heparin drip stopped this morning for trach and PEG placement today. Afebrile. 12/03 Patient s/p trach and PEG tube placement yesterday. Had bleeding from around trach and PEG tube insertion sites Heparin drip held last night. s/p transfusion 1u PRBC yesterday Hgb 8.0 this morning. Afebrile. On no sedation. 12/04: Continues to have bruising from PEG tube insertion site. Trach site appears to have stopped. Hemoglobin 7 the same receiving 1 unit FFP and 1 PRBCs. Tube feeds of been resumed. On no sedation. 12/05: Afebrile. No further bleeding noted from the tracheostomy site. Overnight reported by the RN that the PEG tube site continues to bleed Surgicel was placed around the opening, small amount of bleeding still noted. Patient hemoglobin remained 7 patient to be transfused 1 unit PRBC's fibrinogen level pending INR within normal limits. 12/06 Patient s/p transfusion 2u PRBC yesterday Hgb 9.5 this morning from 7.2 last night. No bleeding from trach site however patient still having rectal bleeding. 12/07 No events overnight. On ventilator via trach Hgb 9.8 this morning for colonoscopy today. 12/08: seen and examined around 06:30am. no significant change in mental status. hgb 8.9 this AM. remains on heparin drip at [facility]. 12/09: no improvements or changes. very deconditioned. garcia has remained in without clear indication. had 1 episode of urinary retention, but this is a clear source of infection and an additional serious infection would certainly be life-threatening. 12/10 Patient is now on TP's with 28% FIO2, Afebrile. On Heparin drip. 12/11: remains on t-piece x > 48h. no change in neuro exam. remains on heparin drip with stable hgb 7.8. 12/12: asked to see patient again today by the hospitalist service for change in condition. I have evaluated the patient and he does not clinically appear any different than yesterday. HR actually lower than yesterday. bladder scan suggestive of 600cc retention. patient has had urinary retention before, although has also had multiple hospital acquired urinary tract infections. risk/ benefit at this time would be in favor of serial q6h straight catheterizations. remains hemodynamically stable. some emesis today and evidence of ileus. 12/31 Reconsult for resp distress Patient is 77 yo with chronic resp failure, trach/PEG tube placement, CVA transferred to [facility] for resp distress trach changes to #6 and patient was placed on mechanical ventilation. CXR showed increasing consolidation patient was given Lasix prior to arrival to [facility]. 01/01 Patient is on ventilator via trach. Afebrile. 01/02 No events overnight. On no drips, Afebrile, CPAP 15/5 with 35% FIO2 overnight. 01/03 Remained on TP breathing comfortably. CXR shows bilateral effusions. Will get CT chest. Give single dose of lasix. ID consulted and following, no fever in 24 hours 01/04: Remains unresponsive, fever trending down. Sputum culture now growing Klebsiella and ESBL E. coli. Urine culture and wound culture also growing ESBL E. coli. Chest tube placed on the right side yesterday with 1.35 L output since placement. Urine output excellent with single dose of Lasix 2.5 L in 24 hours. No fever in 24 hours. Repeat 40 mg IV Lasix [facility] RECONSULT NOTE 02/08/18: Mr. Glynn is a 77-year-old man who is known to our service. In short, he was initially admitted with possible optic neuritis versus temporal arteritis in September. Care complicated by an STEMI, multiple infections with healthcare associated pneumonia UTIs. During hospitalization he also received TPA for Stroke, MRI of the brain performed on 12/24/2017, showed infarction involving the left corpus callosum and splenium of the corpus callosum. The patient had undergone tracheostomy placement. And since last month had been on hospitalist service and off ventilator. He is currently receiving Levaquin for stenotrophomonas infection, Diflucan for candidemia. Apparently patient was noted to aspirate earlier this a.m. At 7250 AM patient was found unresponsive pulseless rhythm asystole and CPR was started. Total 3 amp of epinephrine given. Patient had a cuff less trach with evidence of aspiration, large amount of tube feeds aspirated from tracheostomy tube. This was exchanged for a 8.0 Shiley tracheostomy cuffed. With improved bag and mask ventilation and after 3 epinephrine, 1 amp of calcium, 1 amp of bicarb, patient regained ROSC SUBJ 02/09/18: Remains very critical not on any sedation he is unresponsive eyes are spontaneously open but no tracking. Very slight withdrawal to pain on the upper extremities. CT of the head unremarkable. Currently borderline hypotensive off pressors. Received 2 units of PRBC for hemoglobin 6.6 yesterday. Prognosis remained poor. Neurology consulted per family request 02/10/18: Remains critical with no improvement in neuro status or clinical status. Eyes are spontaneously open but no response to threat no tracking. Neurology consulted MRI and EEG pending at this time. Currently remains on Levophed at 1 mcg/min. Chest x-ray with bilateral infiltrates sputum culture growing GNR. Na 155. Free water flushes and half-normal saline rate increased. 02/11: Remains unresponsive off all sedation. Osmolality slowly returning to baseline. Antibiotics appropriate for organism. Tube feeds tolerated at 50 mL' s per hour. Unable to wean from mechanical ventilation. 02/12: Osmolality slowly returning to baseline. Tube feeds now tolerated at 60 mL's per hour. Unable to wean from mechanical ventilation due to fatigue. 02/13: Placed on spontaneous breathing trial this morning but required 18 of pressure support to maintain an adequate minute volume. Will work from this point and attempt to wean pressure support over the next many days. Will place back on mechanical rate nightly. Anticoagulation is been particularly cumbersome and made more difficult by Diflucan. Will restart Coumadin again this morning as INR is declined to 2.2 02/14: Remains very weak. Essentially unresponsive. Tolerates brief periods of spontaneous breathing trial blood pressure support must be markedly elevated to the 1820 range. State of hydration gradually improving as osmolality declines and serum creatinine improves. Will continue hypotonic solutions IV. 02/15: Remains unresponsive. Continues to fail spontaneous breathing trials due to lack of respiratory effort. Suffers from tachypnea with an efficient small tidal volumes regardless of the amount of pressure support. 02/16: Onset of copious watery diarrhea is contaminating buttock wounds. We will insert a dignity shield system for fecal management. Remains unresponsive to noxious stimulation. He does have a weak cough reflex. 02/17: Patient is weaker on attempts at spontaneous breathing trials today. Patient remains unresponsive. Only reaction is a weak cough to suctioning. 02/18: Patient continues to do poorly on attempts at spontaneous breathing trials. Urine output is improved with diuresis, will follow renal function closely. 02/19: Albumin 1.1, further evidence that the patient is deteriorating. Responds to diuretics but prerenal azotemia quickly develops. 02/20: Ongoing attempts to remove excess soft tissue and pleural water consistently resolved and renal impairment. Unfortunately this is largely caused by his poor nutritional status. Despite sufficient nutritional support he continues to deteriorate clinically. 02/21: no improvements in function. still grossly anasarca. Cr worsening again. hypernatremia persists. 02/22: no changes. intermittently tachycardic. still gently diuresing. outlook poor. 02/23: no improvements. anemic this AM requiring transfusion of prbc. Family refuses to allow the holding of anticoagulation given multiple recent CVA, so anticoagulation will continue despite anemia. remains hypernatremic despite therapy. 02/24: no changes or improvements. HR came down with transfusion of prbc yesterday. 02/25: hgb stable. Cr worsens slightly. metabolic derangements have improved somewhat and sodium improving. no improvement in neurologic status. poor prognosis. 02/26, 02/27: Remains on mech ventilation via trach. No improvement in neuro status. 02/28: A.m. laboratories pending. Afebrile. No new changes overnight. 03/01: Remains on mechanical ventilation via tracheostomy. Neurologically unchanged. 03/02: Remains on mechanical ventilation via tracheostomy. Remains encephalopathic with no change in neurologic status. 03/03, 03/04, 03/05, 03/06: Remains encephalopathic on mechanical ventilation via tracheostomy. No change in neuro status. 03/07: Remains encephalopathic on mechanical ventilation via tracheostomy. Daily CPAP trials ongoing. No significant improvement in neurologic status over the last week. Objective Vital Signs / I&O: Vital Signs 03/06/18 14:00 03/06/18 15:56 03/06/18 16:00 Temperature 97.4 F L Pulse Rate 84 75 Respiratory Rate 15 18 Blood Pressure 116/65 Pulse Oximetry 99 100 03/06/18 17:34 03/06/18 20:00 03/06/18 20:56 Temperature 97.6 F Pulse Rate 87 86 Respiratory Rate 16 21 Blood Pressure 112/56 L Pulse Oximetry 100 100 03/06/18 22:00 03/07/18 00:00 03/07/18 00:03 Temperature 97.6 F Pulse Rate 88 76 79 Respiratory Rate 17 16 Blood Pressure 121/61 Pulse Oximetry 99 100 03/07/18 02:00 03/07/18 03:22 03/07/18 04:00 Temperature 97.9 F Pulse Rate 88 84 Respiratory Rate 20 20 Blood Pressure 118/63 Pulse Oximetry 99 98 03/07/18 06:00 03/07/18 08:00 03/07/18 08:51 Temperature 97.5 F L Pulse Rate 86 90 Respiratory Rate 18 22 Blood Pressure 122/60 Pulse Oximetry 100 100 03/07/18 10:00 Temperature Pulse Rate 76 Respiratory Rate Blood Pressure Pulse Oximetry Intake & Output 03/06/18 03/07/18 03/07/18 18:59 06:59 18:59 Intake Total 723 / 723 1487 / 1487 Output Total 900 / 900 1500 / 1500 Balance -177 / -177 -13 / -13 Weight 84.3 kg Intake: IV 50 / 50 50 / 50 Avycaz Inj 1.25 GM In NS Inj 50 50 / 50 50 / 50 ML @ 25 mls/hr IV.SIG Q12HR EDE Rx#:[id number] Tube Feeding 673 / 673 837 / 837 Water Bolus Amount 600 / 600 Output: Stool 300 / 300 Urine Amount (Catheter) 900 / 900 1200 / 1200 Indwelling Urethral Catheter 900 / 900 1200 / 1200 Other: Date of Last Bowel Movement 03/05/18 03/05/18 03/05/18 Result Diagrams: 03/07/18 03:42 03/07/18 03:42 Objective Remarks: GENERAL: Patient is 77 yo encephalopathic, unresponsive on the vent. Eyes are closed. SKIN: Warm and dry. Stage IV sacral decubitus, surrounding buttocks excoriation. HEAD: Normocephalic. Tongue moist. EYES: No scleral icterus. No injection. PRABHA. NECK: Cuffed tracheostomy tube in place 6.0. Moderate secretions persist. CARDIOVASCULAR: normal rate, regular rhythm. S1, S2. No S4. No JVD. RESPIRATORY: Diminished breath sounds in the bases bilaterally. Persistent scattered rhonchi anteriorly and posteriorly GASTROINTESTINAL: Abdomen soft. PEG tube site clean and dry MUSCULOSKELETAL: No cyanosis. Generalized edema. NEURO: Eyes are closed. Unresponsive to stimulation in all 4 limbs. Weak cough reflex. Assessment and Plan - Assessment and Plan Plan: Assessment: Asystole/Cardiac arrest Worsening encephalopathy most likely anoxia contributing Aspiration pneumonia Acute on chronic hypoxemic and hypercapnic resp failure Combined shock, septic and cardiogenic Healthcare associated pneumonia, stenotrophomonas now with multidrug resistant Klebsiella pneumonia Candidemia -treated UTI with ESBL E. coli CVA Anemia requiring transfusion Sacral decubitus ulcer s/p NSTEMI Optic neuritis Status post tracheostomy and PEG tube placement Acute protein calorie malnutrition- severe Acute kidney injury Hypokalemia Plan: Impression: Neuro -Acute worsening of encephalopathy secondary to systolic cardiac arrest, anoxia -CT head 02/08/[address] Pereira reconsulted per family request -History of L ENID infarct. Status post systemic TPA on November 09 -Neuropsychology has followed. Continue with methylphenidate 10 mg twice daily -Optic neuritis. Status post treatment with IV hydrocortisone -Remains unresponsive. CV: -Asystole/cardiac arrest seems secondary to hypoxia and hypercapnia from severe aspiration -s/p IV fluid normal saline 2 L bolus, 2U PRBC -half-normal saline discontinued 02/28 along with furosemide 40 mg twice daily. Continue free water flushes at 300 mL every 6 -Continue warfarin currently 1 mg daily as per pharmacy's recommendation -Echo 10/19: LV systolic function is moderately reduced, EF 40-45%. Cardiology has followed Dr. Hernández -Doxazosin 2mg daily and carvedilol 3.125mg BID on hold due to hypotension. On atorvastatin 80mg qhs -As needed Midrin 10 every 8 as needed Pulm: -Cardiac arrest seems to be secondary to respiratory arrest. Evidence of aspiration at the time of arrest -Cuff less tracheostomy tube removed and new Shiley 7 cuffed tracheostomy placed 02/08/18 -PRVC/AC ventilation. Albuterol/ipratropium every 6 hours while awake scheduled and albuterol aerosols every 2 hours as needed -Failed CPAP due to apnea -ICU vent bundle. Pulm toilet, trach care. GI -Currently tube feeds at goal with vital 1.5 at 60 cc an hour. continue as tolerated. -On famotidine 10mg BID -Free water flushes 300 mils every 6 hours -Having BMs on polyethylene glycol 17 g daily Continue with hydrocortisone suppository twice daily [id number] 1% per rectal every 6 hours ordered Renal/: -Monitor renal function, electrolytes replacement per protocol. ID -Patient was receiving levofloxacin for stenotrophomonas, fluconazole for candidemia -Added meropenem 02/08/18 for previous ESBL E. coli HCAP. Currently on ceftazidime 1.25 g every 12 hours -Previous UTI with ESBL E. coli, Previous healthcare associated pneumonia with Klebsiella and ESBL E. coli -ID Dr. Jalloh following Skin -Sacral wound-Seen by Plastic surgery; debridement declined per patient's family -Wound care is following- apply dressings per wound management recommendations Heme: -Status post 2 units PRBC on 02/08/2018 now s/p additional 2 units prbc on 02/23 for recurrent anemia. -Previous GI bleed; Status post EGD colonoscopy. GI has signed off, patient with healed rectal ulcers and hemorrhoids. -INR currently 1.9.d pending Endo -On SSI with R insulin. Insulin detemir 30 units twice daily for glycemic control GI prophylaxis- on famotidine DVT prophylaxis- On warfarin and adjusted per pharmacy consultation. Overall impression: Patient remains critically ill after aspiration with hypoxemic and hypercarbic respiratory failure leading to asystolic cardiac arrest. Ten minutes of CPR with return of spontaneous circulation after aggressive resuscitation following CPR, patient remains hypoxemic and encephalopathy. Remains unresponsive, weak respiratory effort is ineffective during spontaneous trials, unable to begin weaning from ventilator. Prognosis remains poor. Family unrealistic with goals of care and press on for aggressive measures. no meaningful improvements in months.
--- NOTE | 2018-03-07 13:49 | P.PN ---
Subjective Interval history: unresponsive on vent support Physical Exam Vital signs: Vital Signs 03/06/18 14:00 03/06/18 15:56 03/06/18 16:00 Temperature 97.4 F L Pulse Rate 84 75 Respiratory Rate 15 18 Blood Pressure 116/65 Pulse Oximetry 99 100 03/06/18 17:34 03/06/18 20:00 03/06/18 20:56 Temperature 97.6 F Pulse Rate 87 86 Respiratory Rate 16 21 Blood Pressure 112/56 L Pulse Oximetry 100 100 03/06/18 22:00 03/07/18 00:00 03/07/18 00:03 Temperature 97.6 F Pulse Rate 88 76 79 Respiratory Rate 17 16 Blood Pressure 121/61 Pulse Oximetry 99 100 03/07/18 02:00 03/07/18 03:22 03/07/18 04:00 Temperature 97.9 F Pulse Rate 88 84 Respiratory Rate 20 20 Blood Pressure 118/63 Pulse Oximetry 99 98 03/07/18 06:00 03/07/18 08:00 03/07/18 08:51 Temperature 97.5 F L Pulse Rate 86 90 Respiratory Rate 18 22 Blood Pressure 122/60 Pulse Oximetry 100 100 03/07/18 10:00 03/07/18 12:00 03/07/18 12:01 Temperature 97.0 F L Pulse Rate 76 83 Respiratory Rate 29 H Blood Pressure 127/68 Pulse Oximetry 100 100 Intake & Output 03/06/18 03/07/18 03/07/18 18:59 06:59 18:59 Intake Total 723 / 723 1487 / 1487 Output Total 900 / 900 1500 / 1500 Balance -177 / -177 -13 / -13 Weight 84.3 kg Intake: IV 50 / 50 50 / 50 Avycaz Inj 1.25 GM In NS Inj 50 50 / 50 50 / 50 ML @ 25 mls/hr IV.SIG Q12HR [facility] Rx#:[id number] Tube Feeding 673 / 673 837 / 837 Water Bolus Amount 600 / 600 Output: Stool 300 / 300 Urine Amount (Catheter) 900 / 900 1200 / 1200 Indwelling Urethral Catheter 900 / 900 1200 / 1200 Other: Date of Last Bowel Movement 03/05/18 03/05/18 03/05/18 Narrative: GENERAL:on vent support male patient, UNRESPONSIVE. . SKIN: Warm and dry. +sacral decub per wound care notes. HEAD: Atraumatic. Normocephalic. EYES: Pupils equal and round. No scleral icterus. No injection or drainage. ENT: No nasal bleeding or discharge. Mucous membranes pink and moist. NECK: Trachea midline. Trach in place. CARDIOVASCULAR: Regular rate and rhythm. RESPIRATORY: No accessory muscle use. Clear to auscultation. Breath sounds equal bilaterally. GASTROINTESTINAL: Abdomen soft, non-tender, nondistended. PEG in place. GENITOURINARY: Lizarraga in place - placed 01/21 MUSCULOSKELETAL: Extremities without clubbing, cyanosis, or edema. NEUROLOGICAL: Awake. Unable to follow commands. Nonverbal. PSYCHIATRIC: Calm. - Urinary Catheter Management Straight Cath placed during this visit: yes Urethral indwelling: Yes Reason for continuing: Acute urinary retention Insertion date: 01/21/18 Insertion time: 08:00 Indwelling Urethral Catheter Cath placed during this visit: yes, but has since been removed by the nurse Urethral indwelling: Yes Reason for continuing: Acute urinary retention Insertion date: 01/21/18 Insertion time: 16:18 Removal date: 01/20/18 Removal time: 15:15 Results - Labs CBC & Chem 7: 03/07/18 03:42 03/07/18 03:42 Laboratory Results - last 24 hr 03/06/18 03/06/18 03/06/18 17:15 20:11 21:36 WBC RBC Hgb Hct MCV MCH MCHC RDW Plt Count MPV PT INR Sodium Potassium 5.2 H Chloride Carbon Dioxide Anion Gap BUN Creatinine Estimated GFR POC Glucose 149 H 211 H Random Glucose Calcium 03/07/18 03/07/18 03/07/18 00:57 03:42 03:42 WBC 8.8 RBC 3.10 L Hgb 8.4 L Hct 25.5 L MCV 82.4 MCH 27.2 MCHC 32.9 RDW 20.7 H Plt Count 286 MPV 8.9 PT INR Sodium 142 Potassium 5.1 Chloride 107 Carbon Dioxide 28.8 Anion Gap 6 BUN 76 H Creatinine 1.34 H Estimated GFR 52 L POC Glucose 188 H Random Glucose 187 H Calcium 7.8 L 03/07/18 03/07/18 04:16 12:19 WBC RBC Hgb Hct MCV MCH MCHC RDW Plt Count MPV PT 16.3 H INR 1.6 Sodium Potassium Chloride Carbon Dioxide Anion Gap BUN Creatinine Estimated GFR POC Glucose 217 H Random Glucose Calcium Microbiology 03/05/18 04:10 Sputum - Tracheal Aspirate Gram Stain - Final 03/05/18 04:10 Sputum - Tracheal Aspirate Sputum Culture - Preliminary Pseudomonas aeruginosa Stenotrophomonas maltophilia Assessment and Plan - Plan RESPIRATORY FAILURE S/P cva S/P [place] S/P trach decubitus ulcer plan VENT SUPPORT PULM TOILET OUTLOOK POOR
[2018-03-08] MEDS: Insulin NovoLIN Regular Correctional Sugar Inj SQ SCH ×4 (00:23→18:19)
[2018-03-08 07:06] LABS: INR 1.6 Ratio; Prothrombin Time 15.7 sec (9.8-11.6)
[2018-03-08] MEDS: Ceftazidime/Avibactam Inj 1.25 GM in Sodium Chlor 0.9% Inj 50 ML IV.SIG SCH ×2 (08:28→21:42)
[2018-03-08] MEDS: Hydrocortisone Acetate 25 MG Supp RECTAL SCH ×2 (08:29→20:35)
[2018-03-08] MEDS: Famotidine 20 MG Tablet PO SCH ×2 (08:29→20:37)
[2018-03-08] MEDS: Polyethylene Glycol 3350 17 GM Packet PO SCH (08:29)
[2018-03-08] MEDS: Insulin Detemir Inj 1,000 UNIT/10 ML Vial SQ SCH ×2 (08:29→21:43)
[2018-03-08] MEDS: Hypromellose 0.3% Opth Gel 10 GM Bottle EACH EYE SCH ×2 (08:29→20:36)
--- NOTE | 2018-03-08 11:53 | P.DIET ---
Nutritional Evaluation Type of nutrition evaluation: follow-up Nutrition consult regarding: Tube Feeding Nutrition screening: Pressure Injury, [facility] (03/08 Stage 4 Prssure Injury) Screening comments: Transferred to [facility] s/p cardiac arrest and aspiration on 02/08 Subjective Subjective Comments: Vented via trach and unresponsive. Objective - Diagnosis Optic Neuritis - Objective % IBW: 114 (ZCL=272#) Body Weight Used for Calculations: Actual (79.6kg) Energy Needs - Lower Range (kCal/kg): 30 Energy Needs - Upper Range (kCal/kg): 35 Lower Limit kCal/kg (kCals): 2,388 Upper Limit kCal/kg (kCals): 2,786 Lower Limit Protein Factor (Grams per Kg): 1.3 Upper Limit Protein Factor (Grams per Kg): 1.6 Lower Protein Needs (Protein): 103 Upper Protein Needs (Protein): 127 Fluid Factor (ml/kg): 30 Estimated Fluid Needs (ml): 2,388 Dietitian Reviewed in Medical Record: Curent medications, Intake & Output, Labs , Tube feeding, Wound/DTI Diet Order: TF Only Wound Care Note: WOCN dated 02/17: sacrum pressure injury Objective Comments: glu 187 Feeding - Current Tube Feeding Tube Feeding Product: Vital 1.5 Tube Feeding Method: Pump Tube Feeding Rate: 60 Tube Feeding Route: gastrostomy Current kCals Provided by Tube Feedin,160 Current Protein Provided by Tube Feeding (gPRO): 97 Current Free H2O Provided (m/l): 1,100 Assessment Assessment: [facility] received for stage 4 prssure injury. No new wound note available for review. Pt was transferred to [facility] (02/08) d/t cardiac arrest and aspiration. Currently receiving Vital 1.5 @ 60 mls/hr. Recommend Vital 1.5 @ 65 mls/hr to provide 2340 kcals, 105 gms protein and 1192 mls of free water. Sharif 1 pack bid may also aid in healing pressure injury. Labs, wts and clinical course reviewed. Elevated glucose noted: Glucerna 1.5 TF formula is listed under pt's allergies. CBW = 83 kg Recommendations: 1. Increase Vital 1.5 to 65mls/hr goal 2. Please update TF order 3. Please order Sharif bid 4. Improved glucose control will help healing. Review meds. Dietitian to Monitor: Lab values, Glucose level, Intake & Output, Tube feeding tolerance, Weight change, Wound/skin status, Medical course
[2018-03-08] MEDS: Collagenase Oint 30 GM Tube TOPICAL SCH (12:00)
--- NOTE | 2018-03-08 14:11 | P.PN ---
Subjective Interval history: vent dependent unresponsive Physical Exam Vital signs: Vital Signs 03/07/18 16:00 03/07/18 16:03 03/07/18 18:00 Temperature 97.6 F Pulse Rate 85 102 H Respiratory Rate 16 17 Blood Pressure 106/79 Pulse Oximetry 100 100 03/07/18 20:00 03/07/18 20:18 03/07/18 22:00 Temperature 97.8 F Pulse Rate 97 H 96 H Respiratory Rate 20 19 Blood Pressure 120/59 L Pulse Oximetry 100 96 03/08/18 00:00 03/08/18 00:28 03/08/18 02:00 Temperature 97.6 F Pulse Rate 92 H 80 Respiratory Rate 22 24 Blood Pressure 120/69 Pulse Oximetry 100 100 03/08/18 04:00 03/08/18 04:07 03/08/18 06:00 Temperature 97.4 F L Pulse Rate 94 H 94 H Respiratory Rate 20 25 H Blood Pressure 129/77 Pulse Oximetry 100 100 03/08/18 08:18 03/08/18 08:54 03/08/18 12:22 Temperature Pulse Rate 91 H Respiratory Rate 26 H 26 H 28 H Blood Pressure Pulse Oximetry 100 100 Intake & Output 03/07/18 03/08/18 03/08/18 18:59 06:59 18:59 Intake Total 1320 / 1320 1659 / 1659 Output Total 1000 / 1000 1200 / 1200 Balance 320 / 320 459 / 459 Weight 83 kg Intake: IV 50 / 50 50 / 50 Avycaz Inj 1.25 GM In NS Inj 50 50 / 50 50 / 50 ML @ 25 mls/hr IV.SIG Q12HR [facility] Rx#:[id number] Oral 0 / 0 Tube Feeding 670 / 670 909 / 909 Water Bolus Amount 600 / 600 600 / 600 Other 100 / 100 Output: Urine 1100 / 1100 Stool 100 / 100 100 / 100 Urine Amount (Catheter) 900 / 900 Indwelling Urethral Catheter 900 / 900 Other: # Incontinent Voids 0 Date of Last Bowel Movement 03/05/18 03/05/18 # Bowel Movements 1 # Incontinent Bowel Movements 0 Narrative: GENERAL:on vent support male patient, UNRESPONSIVE. . SKIN: Warm and dry. +sacral decub per wound care notes. HEAD: Atraumatic. Normocephalic. EYES: Pupils equal and round. No scleral icterus. No injection or drainage. ENT: No nasal bleeding or discharge. Mucous membranes pink and moist. NECK: Trachea midline. Trach in place. CARDIOVASCULAR: Regular rate and rhythm. RESPIRATORY: No accessory muscle use. Clear to auscultation. Breath sounds equal bilaterally. GASTROINTESTINAL: Abdomen soft, non-tender, nondistended. PEG in place. GENITOURINARY: Lizarraga in place - placed 01/21 MUSCULOSKELETAL: Extremities without clubbing, cyanosis, or edema. NEUROLOGICAL: Awake. Unable to follow commands. Nonverbal. PSYCHIATRIC: Calm. - Urinary Catheter Management Straight Cath placed during this visit: yes Urethral indwelling: Yes Reason for continuing: Acute urinary retention Insertion date: 01/21/18 Insertion time: 08:00 Indwelling Urethral Catheter Cath placed during this visit: yes, but has since been removed by the nurse Urethral indwelling: Yes Reason for continuing: Chronic Urinary Retention Insertion date: 01/21/18 Insertion time: 16:18 Removal date: 01/20/18 Removal time: 15:15 Results - Labs CBC & Chem 7: 03/07/18 03:42 03/07/18 03:42 Laboratory Results - last 24 hr 03/07/18 03/08/18 03/08/18 16:51 00:15 05:27 PT 15.7 H INR 1.6 POC Glucose 209 H 255 H 03/08/18 03/08/18 06:26 12:17 PT INR POC Glucose 211 H 204 H Microbiology 02/08/18 13:15 Blood - Peripheral Blood Fungal Culture - Final No growth in 4 weeks 02/08/18 13:15 Blood - Peripheral Blood Fungal Culture - Final 03/05/18 04:10 Sputum - Tracheal Aspirate Gram Stain - Final 03/05/18 04:10 Sputum - Tracheal Aspirate Sputum Culture - Final Pseudomonas aeruginosa Stenotrophomonas maltophilia Assessment and Plan - Plan RESPIRATORY FAILURE S/P cva S/P [place] S/P trach decubitus ulcer plan VENT SUPPORT PULM TOILET OUTLOOK POOR
[2018-03-08] MEDS ORDERED: Custom Consult Pharmacy OTHER PRN (16:20)
--- NOTE | 2018-03-08 16:20 | P.PNID ---
Subjective Remarks: remains on vent, failed CPAP today + secretions growing MDRO pseudomonas spp fro sputum as well Now with Steno malt minimal responsiveness normothermic today WBC wnl Antibiotics: avycaz Lines: PIV Lines ok Past Medical History: reviewed Allergies/Adverse Reactions: Allergies Glucerna 1.5 Adverse Reaction (Uncoded 02/09/18 12:04) Vomiting Objective Vital Signs 03/07/18 18:00 03/07/18 20:00 03/07/18 20:18 Temperature 97.8 F Pulse Rate 102 H 97 H Respiratory Rate 20 19 Blood Pressure 120/59 L Pulse Oximetry 100 96 03/07/18 22:00 03/08/18 00:00 03/08/18 00:28 Temperature 97.6 F Pulse Rate 96 H 92 H Respiratory Rate 22 24 Blood Pressure 120/69 Pulse Oximetry 100 100 03/08/18 02:00 03/08/18 04:00 03/08/18 04:07 Temperature 97.4 F L Pulse Rate 80 94 H Respiratory Rate 20 25 H Blood Pressure 129/77 Pulse Oximetry 100 100 03/08/18 06:00 03/08/18 08:00 03/08/18 08:18 Temperature 98.1 F Pulse Rate 94 H 89 Respiratory Rate 23 26 H Blood Pressure 127/65 Pulse Oximetry 100 100 03/08/18 08:54 03/08/18 10:00 03/08/18 12:00 Temperature 97.8 F Pulse Rate 91 H 94 H 100 H Respiratory Rate 26 H 28 H Blood Pressure 142/71 H Pulse Oximetry 100 03/08/18 12:22 03/08/18 14:00 Temperature Pulse Rate 92 H Respiratory Rate 28 H Blood Pressure Pulse Oximetry 100 Intake & Output 03/07/18 03/08/18 03/08/18 18:59 06:59 18:59 Intake Total 1320 / 1320 1659 / 1659 Output Total 1000 / 1000 1200 / 1200 Balance 320 / 320 459 / 459 Weight 83 kg Intake: IV 50 / 50 50 / 50 Avycaz Inj 1.25 GM In NS Inj 50 50 / 50 50 / 50 ML @ 25 mls/hr IV.SIG Q12HR [facility] Rx#:[id number] Oral 0 / 0 Tube Feeding 670 / 670 909 / 909 Water Bolus Amount 600 / 600 600 / 600 Other 100 / 100 Output: Urine 1100 / 1100 Stool 100 / 100 100 / 100 Urine Amount (Catheter) 900 / 900 Indwelling Urethral Catheter 900 / 900 Other: # Incontinent Voids 0 Date of Last Bowel Movement 03/05/18 03/05/18 03/08/18 # Bowel Movements 1 # Incontinent Bowel Movements 0 02/08/18 13:15 Blood - Peripheral Blood Fungal Culture - Final No growth in 4 weeks 02/08/18 13:15 Blood - Peripheral Blood Fungal Culture - Final 03/05/18 04:10 Sputum - Tracheal Aspirate Gram Stain - Final 03/05/18 04:10 Sputum - Tracheal Aspirate Sputum Culture - Final Pseudomonas aeruginosa Stenotrophomonas maltophilia Lab - Hematology Results 03/07/18 03:42 WBC 8.8 RBC 3.10 L Hgb 8.4 L Hct 25.5 L MCV 82.4 MCH 27.2 MCHC 32.9 RDW 20.7 H Plt Count 286 MPV 8.9 Lab - Chemistry Results 03/06/18 03/06/18 03/06/18 17:15 20:11 21:36 Sodium Potassium 5.2 H Chloride Carbon Dioxide Anion Gap BUN Creatinine Estimated GFR POC Glucose 149 H 211 H Random Glucose Calcium 03/07/18 03/07/18 03/07/18 00:57 03:42 12:19 Sodium 142 Potassium 5.1 Chloride 107 Carbon Dioxide 28.8 Anion Gap 6 BUN 76 H Creatinine 1.34 H Estimated GFR 52 L POC Glucose 188 H 217 H Random Glucose 187 H Calcium 7.8 L 03/07/18 03/08/18 03/08/18 16:51 00:15 06:26 Sodium Potassium Chloride Carbon Dioxide Anion Gap BUN Creatinine Estimated GFR POC Glucose 209 H 255 H 211 H Random Glucose Calcium 03/08/18 12:17 Sodium Potassium Chloride Carbon Dioxide Anion Gap BUN Creatinine Estimated GFR POC Glucose 204 H Random Glucose Calcium Imaging: ITS Impressions Chest CT 01/03/18 00:00 CONCLUSION: 1. Large bilateral pleural effusions occupying more than half of the right and left hemithorax. Abdomen/Pelvis CT 01/13/18 00:00 CONCLUSION: 1. Small bilateral pleural effusions and basilar infiltrates with bilateral chest tubes in place. 2. No evidence of ascites or bowel dilatation. Abdomen/Bladder Ultrasound 01/15/18 00:00 CONCLUSION: 1. Negative renal sonogram. Abdomen X-Ray 02/08/18 00:00 CONCLUSION: 1. Nonobstructive bowel gas pattern. 2. Gastrostomy tube in the left upper abdominal quadrant Head CT 02/08/18 00:00 CONCLUSION: 1. Stable prominent senescent changes with mild to moderate periventricular ischemic white matter demyelination. 2. No acute intracranial abnormality.. Head MRI 02/10/18 00:00 CONCLUSION: 1. No acute findings. Extensive cortical volume loss. Moderate white matter ischemic changes. No recent infarct. Chest X-Ray 03/05/18 00:00 CONCLUSION: 1. Persistent left lower lobe consolidation. 2. Increasing size left pleural effusion and decreasing size right pleural effusion. Physical Exam: GENERAL: unresponsive On vent SKIN: Warm and dry. No rash Sacral stage IV decub with 50% necrotic tissue in the bed on the wound , no purulence, erythema HEAD: Normocephalic. EYES: No scleral icterus. No injection or drainage. NECK: Supple, trachea midline. + trach in place with large amount of drainage CARDIOVASCULAR: RRR. No murmurs, rubs, gallops RESPIRATORY: Breath sounds equal bilaterally. No accessory muscle use. scattered rhonchi GASTROINTESTINAL: Abdomen soft, non-tender, nondistended. +PEG tube in place MUSCULOSKELETAL: No cyanosis, + some pitting edema. GUl; garcia in place with yellow urine Neuro: obtunded unresponsive no eye contact, not follws commands non vernbal Assessment and Plan - Plan Sacral decub with possible underlying infection, osteomyelitis. growing PSAE S zosyn PNA, HCAP - growing PSAE , MDRO GNR UTI ? ESBL given h/o ESBL. 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 Encephalopathy: strokes in hospital, optic neuritis on presentation. Fungemia, C. tropicalis Hypothermia: resolved New issue: Steno malt in sputum add Bactrim. Will consult pharmacist to adjust the dose cont avycaz CXR dw dgtr dw RN
[2018-03-08] MEDS ORDERED: TRIMETHOPRIM IV.SIG SCH ×2 (18:00)
[2018-03-08] MEDS ORDERED: [UNRECOGNIZED DRUG - OTHER] IV.SIG SCH ×2 (18:00)
[2018-03-08] MEDS ORDERED: SULFAMETHOXAZOLE IV.SIG SCH ×2 (18:00)
[2018-03-08] MEDS: SULFAMETHOXAZOLE IV.SIG SCH ×2 (18:18)
[2018-03-08] MEDS: [UNRECOGNIZED DRUG - OTHER] IV.SIG SCH ×2 (18:18)
[2018-03-08] MEDS: TRIMETHOPRIM IV.SIG SCH ×2 (18:18)
[2018-03-09] MEDS: Insulin NovoLIN Regular Correctional Sugar Inj SQ SCH ×4 (00:11→18:52)
[2018-03-09] MEDS: TRIMETHOPRIM IV.SIG SCH ×6 (02:10→17:29)
[2018-03-09] MEDS: SULFAMETHOXAZOLE IV.SIG SCH ×6 (02:10→17:29)
[2018-03-09] MEDS: [UNRECOGNIZED DRUG - OTHER] IV.SIG SCH ×6 (02:10→17:29)
[2018-03-09 07:10] LABS: Hematocrit 25.3 % (39.0-51.0); Hemoglobin 8.1 gm/dL (13.0-17.0); Mean Corpuscular HGB Conc 31.9 % (32.0-36.0); Mean Corpuscular Hemoglobin 27.3 pg (27.0-34.0); Mean Corpuscular Volume 85.6 fL (80.0-100.0); Mean Platelet Volume 8.7 fL (7.0-11.0); Platelet Count 257 th/mm3 (150-450); Red Blood Count 2.96 mil/mm3 (4.50-5.90); Red Cell Distribution Width 21.3 % (11.6-17.2); White Blood Count 8.1 th/mm3 (4.0-11.0)
[2018-03-09 07:17] LABS: INR 1.6 Ratio; Prothrombin Time 15.9 sec (9.8-11.6)
[2018-03-09 07:38] LABS: Carbon Dioxide 25.8 meq/L (21.0-32.0); Potassium 5.6 meq/L (3.5-5.1)
[2018-03-09] MEDS: Famotidine 20 MG Tablet PO SCH ×2 (08:34→22:10)
[2018-03-09] MEDS: Polyethylene Glycol 3350 17 GM Packet PO SCH (08:35)
[2018-03-09] MEDS: Insulin Detemir Inj 1,000 UNIT/10 ML Vial SQ SCH ×2 (08:35→22:35)
[2018-03-09] MEDS: Ceftazidime/Avibactam Inj 1.25 GM in Sodium Chlor 0.9% Inj 50 ML IV.SIG SCH ×2 (08:35→22:11)
[2018-03-09] MEDS: Hypromellose 0.3% Opth Gel 10 GM Bottle EACH EYE SCH ×2 (08:36→22:11)
[2018-03-09] MEDS: Collagenase Oint 30 GM Tube TOPICAL SCH (08:38)
[2018-03-09] MEDS: Hydrocortisone Acetate 25 MG Supp RECTAL SCH ×2 (08:38→22:48)
[2018-03-10] MEDS: Insulin NovoLIN Regular Correctional Sugar Inj SQ SCH ×4 (00:13→17:55)
[2018-03-10] MEDS: [UNRECOGNIZED DRUG - OTHER] IV.SIG SCH ×6 (01:26→17:54)
[2018-03-10] MEDS: SULFAMETHOXAZOLE IV.SIG SCH ×6 (01:26→17:54)
[2018-03-10] MEDS: TRIMETHOPRIM IV.SIG SCH ×6 (01:26→17:54)
[2018-03-10 05:09] LABS: INR 1.8 Ratio; Prothrombin Time 18.3 sec (9.8-11.6)
[2018-03-10] MEDS: Ceftazidime/Avibactam Inj 1.25 GM in Sodium Chlor 0.9% Inj 50 ML IV.SIG SCH ×2 (08:27→20:57)
[2018-03-10] MEDS: Insulin Detemir Inj 1,000 UNIT/10 ML Vial SQ SCH ×2 (08:27→20:58)
[2018-03-10] MEDS: Polyethylene Glycol 3350 17 GM Packet PO SCH (08:28)
[2018-03-10] MEDS: Famotidine 20 MG Tablet PO SCH ×2 (08:28→20:59)
[2018-03-10] MEDS: Hydrocortisone Acetate 25 MG Supp RECTAL SCH ×2 (08:29→20:58)
[2018-03-10] MEDS: Hypromellose 0.3% Opth Gel 10 GM Bottle EACH EYE SCH ×2 (08:29→20:58)
--- NOTE | 2018-03-10 09:05 | P.PNCC ---
Subjective Subjective Remarks/Hospital Course: This is a 77-year-old male who initially presented with vision changes and concern for optic neuritis versus temporal arteritis. His initial presentation was on 10/14. His hospital course has been complicated by an NSTEMI with troponins which peaked at 10, ESBL E. coli urinary tract infection, rectal bleeding suspected from bleeding hemorrhoids, acute anemia secondary to blood loss with hemoglobin started around 14 and is trended down to 9.7 this morning. On his initial MRA he was found to have significant atherosclerotic cerebrovascular disease in all vascular territories. Today, he had an acute mental status change and was obtunded. Rapid response and stroke alert was called. His initial NIH stroke scale was 22. Dr. goldstein had conversations with Dr. Ulloa and neurology as well as Dr. sierra with gastroenterology. GI feels comfortable with giving thrombolytics and neurology feels strongly that this patient would benefit from systemic IV TPA therapy. I evaluated the patient on arrival to the intensive care unit. The patient is arousable, but very somnolent. He is Ukrainian speaking, and it is very difficult to ascertain whether or not he can follow commands. He does move all extremities spontaneously, although it appears that his left side is weaker than his right. He has noted facial droop. CT head is negative for acute hemorrhage. CTA head neck is significant for the same multivessel cerebrovascular disease that was present on admission. Given the high-risk nature of the stroke as well as his acute anemia this hospitalization, in preparation for giving emergent IV systemic TPA, I placed an arterial line as well as a large-bore peripheral IV so that we could draw serial labs, monitor his hemoglobin, and give blood products if necessary. I also had an additional discussion with the family where I reconfirmed that their goals were aggressive and they fully understood the significant risk of life-threatening hemorrhage associated with systemic TPA in a patient with new anemia and suspected GI bleeding. The family expressed understanding of his condition and understanding of the heightened risk of life-threatening bleeding, but still urged that we needed to get TPA. Immediately after giving IV TPA, patient had a tonic clonic seizure (witnessed on EEG) and became obtunded with acute hypoxic and hypercarbic respiratory failure and was emergently intubated (see separate procedure note for details). 11/10: remains intubated. encephalopathy persists. hgb stable s/p TPA. ~350cc bloody OG tube output, but this is slowing down. 11/11: more awake. on SBT. follows commands. 11/12: remains extubated. off vasopressors. no changes in mental status. 11/18/17 CCM Reconsult Note Patient was transferred to ICU today after a Halicat was called for AMS, hypoxia , high fever. Apparently patient was lethargic since a.m. in the last hour had been unresponsive and hence Halicat was called. Patient had a fever of 101.4 in a.m., T-max is 101.6. I immediately evaluated the patient in the ICU. Patient is completely unresponsive, oxygen saturation 87% on 4 L nasal cannula. Hypopneic. No response to deep pain. Patient was confirmed to be a full code and I proceeded with endotracheal intubation place him on mechanical ventilation as patient was not protecting airway. More history was obtained from discussion with ID Dr. Jalloh. She indicated patient had been increasingly lethargic with fever and also had urinary retention.She has discontinued Ertapenem, and started on meropenem, vancomycin and micafungin. Cultures have been sent and are pending now. Source of sepsis appears to be aspiration pneumonia versus UTI. Repeat UA and panculture pending at this time. Patient was borderline hypotensive prior to intubation and I have started on Levophed to avoid hypotension post intubation. Receiving 1 L normal saline bolus now, give additional fluid bolus if patient requires continued Levophed will place central line 11/19: remains intubated. holding aggrenox for possible thoracentesis today, but family hesitant to consent with concerns over bleeding risk. Cr remains elevated. discussion with Dr. Bernal, unlikely to benefit currently from draining effusion, so at his recommendation, will proceed with attempted weaning from mechanical ventilation and treat effusion conservatively. 11/20: Overnight /early this a.m. ,the patient was noted to have large amount of rectal bleeding. Aggrenox held since 11/18, 2/2 reintubation. Type and screen ordered. Serial H&H currently be performed. Hemodynamically stable. GI has been reconsulted. Protonix previously given PRN, will schedule BID. Patient was reintubated emergently 11/18, plan for continue CPAP trials. Tube feedings until evaluation by GI. ASA placed on hold , in the setting of GI bleeding. 11/21: EGD and colonoscopy performed yesterday. Patient was noted to be constipated ,disimpacted per GI. Patient noted to have hemorrhoids which was clipped. No further bleeding throughout the night. Chest x-ray showed improvement. CPAP trials initiated this a.m.. ASA 81 mg resumed. 11/22: Patient tolerated CPAP trials approximately 13 hours yesterday. Initiation of tube feeds per GI yesterday, no residuals. This am , family concerned patient not responsive. CT brain , ammonia level and EEG pending. Neurology has been reconsulted. Upon my entering the room, this afternoon, the patient was awake, tracking and squeezing my hand upon commands, with right hand. The patient received 1 u PRBC for Hgb 7.2. Post transfusion CBC pending. Plan for quantification of pleural fluid for possible thoracentesis in a.m.. 11/23: No acute events overnight. Patient remains off all sedation. Noted spontaneous eye opening, tracking following commands squeezing hands right greater than left. Neurology following plan for MRI this a.m., repeat EEG pending. Hemoglobin stable this a.m.. Chest x-ray slight improvement, plan for quantification via ultrasound of pleural effusions for possible thoracentesis today. 3 failed attempts at CPAP trials yesterday. 1548-MRI resulted findings consistent of small areas of acute cortical infarct, new since 11/09/2017. I contacted neurology, Dr. Geronimo informed of results. After Dr. Palma's review of imaging and records, it was determined most likely cardioembolic since is affecting both sides and failure with aspirin and Persantine. Ischemic stroke heparin protocol initiated. Careful review secondary to patient history of GI bleed 11/20, thought to be emanating from hemorrhoid ,however due to poor suboptimal prep, they unable to have optimal visualization per Dr. Jones. 11/24: Late entry note. Patient seen and evaluated 614. No acute events overnight. Patient continues on heparin infusion no active signs of bleeding. PTT within therapeutic range. The patient is less responsive this a.m., spontaneous eye opening, not following my commands. Not moving his extremities spontaneously for me as previously performed yesterday. tube feeds reinitiated. Chest x-ray showed further improvement in aeration of lungs the patient continues on FiO2 of 0.35. Plan for CPAP trials today. 11/25: No acute events overnight. Neurological status unchanged. Spontaneous eye opening patient continues not following any commands. Dr. Geronimo at bedside evaluating patient, no change. Patient tolerated CPAP trials approximately 12 hours yesterday. Tolerating tube feeds. Chest x-ray remains unchanged from yesterday. Hemoccult stool negative. Heparin infusion continued. family at bedside. 11/26: Late entry note. Patient seen at 1240pm. Last night the patient was noted to be continuously hyperglycemic. Levemir added to medication regimen 10 mg/day hemoglobin dropped 2 g/dL in 2 days hemoglobin now 7.7, patient to be transfused 1 unit packed red blood. No obvious signs of bleeding Hemoccult was negative. Patient continues on heparin infusion, patient may require tracheostomy and PEG in the near future . Plan to transition to p.o. anticoagulation post procedures. Neurologically the status is unchanged the patient is opens eyes spontaneously no movement of extremities upon my evaluation. Continued CPAP trials currently greater than 6 hours. 11/27: At 1000am, the patient was noted to have melena, approximated at 150 cc per RN evaluation. Heparin infusion discontinued/placed on hold at 10 AM. Stool for Hemoccult blood sent, GI was contacted and informed of the above events. Stat CT of the abdomen and pelvis with p.o. contrast ordered, results pending. Patient previously had been tolerating trickle feeds at 10 cc an hour with no residuals, after initiation of Reglan 5 mg every 8 hours yesterday. Neurologically the patient status is unchanged. Patient does have spontaneous eye opening but does not follow my commands and does not move extremities. Patient's daughter is at bedside, discussed the above events at which she was present for, she is requesting a repeat colonoscopy. I informed her that a CT of the abdomen and pelvis will be obtained, serial hemoglobin will be evaluated and if needed transfusion will be provided and gastroenterology has been contacted and will determine further management if an invasive procedure is required. Hemoglobin continues to be monitored serially, results pending for 10 AM. The patient received 1 unit packed red blood cells, and current hemoglobin trended overnight 8.9 to 8.2 this a.m., posttransfusion. 11/28: hgb continues to decline despite being off heparin. no additional GI interventions are available at this time. clearly the patient has failed anticoagulation with 2 life-threatening bleeding episodes. Although it is clear he may have additional strokes off anticoagulation, we have clear evidence that we are hurting his overall clinical care with his anticoagulation. I explained this at length to the daughter and medical decision maker. however, she insists that she would rather see him of bleeding rather than have any more strokes , and insists that "we can always keep giving him blood". I explained that blood is not without risk, and there is significant risk to anticoagulation, but she is insistent that he be given anticoagulation to prevent further strokes and she has weighed the risks and benefits after having full informed consent, insists upon us restarting the heparin drip. At her insistence, I have restarted it. In addition, I have counseled her that I do not think he will survive this hospitalization, and he will require tracheostomy for further aggressive care. She states that we are not at "day 14" on the vent, and it is not time for a tracheostomy yet. This is a second intubation and we are certainly at risk for complications from endotracheal intubation, and tracheostomy would be the most appropriate next step for this patient, but the family is refusing until WednesdayDecember 01. 11/29 Patient remains intubated, on no sedation. Afebrile. 11/30 No events overnight. Patient tolerated CPAP for most of day yesterday. Remains on Heparin drip. 12/01 Patient remains intubated tolerated CPAP for several hrs yesterday. s/p CT guided right thoracentesis with removal 500ml pleural fluid. On Heparin drip 12/02 No events overnight. Heparin drip stopped this morning for trach and PEG placement today. Afebrile. 12/03 Patient s/p trach and PEG tube placement yesterday. Had bleeding from around trach and PEG tube insertion sites Heparin drip held last night. s/p transfusion 1u PRBC yesterday Hgb 8.0 this morning. Afebrile. On no sedation. 12/04: Continues to have bruising from PEG tube insertion site. Trach site appears to have stopped. Hemoglobin 7 the same receiving 1 unit FFP and 1 PRBCs. Tube feeds of been resumed. On no sedation. 12/05: Afebrile. No further bleeding noted from the tracheostomy site. Overnight reported by the RN that the PEG tube site continues to bleed Surgicel was placed around the opening, small amount of bleeding still noted. Patient hemoglobin remained 7 patient to be transfused 1 unit PRBC's fibrinogen level pending INR within normal limits. 12/06 Patient s/p transfusion 2u PRBC yesterday Hgb 9.5 this morning from 7.2 last night. No bleeding from trach site however patient still having rectal bleeding. 12/07 No events overnight. On ventilator via trach Hgb 9.8 this morning for colonoscopy today. 12/08: seen and examined around 06:30am. no significant change in mental status. hgb 8.9 this AM. remains on heparin drip at [facility]. 12/09: no improvements or changes. very deconditioned. garcia has remained in without clear indication. had 1 episode of urinary retention, but this is a clear source of infection and an additional serious infection would certainly be life-threatening. 12/10 Patient is now on TP's with 28% FIO2, Afebrile. On Heparin drip. 12/11: remains on t-piece x > 48h. no change in neuro exam. remains on heparin drip with stable hgb 7.8. 12/12: asked to see patient again today by the hospitalist service for change in condition. I have evaluated the patient and he does not clinically appear any different than yesterday. HR actually lower than yesterday. bladder scan suggestive of 600cc retention. patient has had urinary retention before, although has also had multiple hospital acquired urinary tract infections. risk/ benefit at this time would be in favor of serial q6h straight catheterizations. remains hemodynamically stable. some emesis today and evidence of ileus. 12/31 Reconsult for resp distress Patient is 77 yo with chronic resp failure, trach/PEG tube placement, CVA transferred to [facility] for resp distress trach changes to #6 and patient was placed on mechanical ventilation. CXR showed increasing consolidation patient was given Lasix prior to arrival to [facility]. 01/01 Patient is on ventilator via trach. Afebrile. 01/02 No events overnight. On no drips, Afebrile, CPAP 15/5 with 35% FIO2 overnight. 01/03 Remained on TP breathing comfortably. CXR shows bilateral effusions. Will get CT chest. Give single dose of lasix. ID consulted and following, no fever in 24 hours 01/04: Remains unresponsive, fever trending down. Sputum culture now growing Klebsiella and ESBL E. coli. Urine culture and wound culture also growing ESBL E. coli. Chest tube placed on the right side yesterday with 1.35 L output since placement. Urine output excellent with single dose of Lasix 2.5 L in 24 hours. No fever in 24 hours. Repeat 40 mg IV Lasix [facility] RECONSULT NOTE 02/08/18: Mr. Glynn is a 77-year-old man who is known to our service. In short, he was initially admitted with possible optic neuritis versus temporal arteritis in September. Care complicated by an STEMI, multiple infections with healthcare associated pneumonia UTIs. During hospitalization he also received TPA for Stroke, MRI of the brain performed on 12/24/2017, showed infarction involving the left corpus callosum and splenium of the corpus callosum. The patient had undergone tracheostomy placement. And since last month had been on hospitalist service and off ventilator. He is currently receiving Levaquin for stenotrophomonas infection, Diflucan for candidemia. Apparently patient was noted to aspirate earlier this a.m. At 7250 AM patient was found unresponsive pulseless rhythm asystole and CPR was started. Total 3 amp of epinephrine given. Patient had a cuff less trach with evidence of aspiration, large amount of tube feeds aspirated from tracheostomy tube. This was exchanged for a 8.0 Shiley tracheostomy cuffed. With improved bag and mask ventilation and after 3 epinephrine, 1 amp of calcium, 1 amp of bicarb, patient regained ROSC SUBJ 02/09/18: Remains very critical not on any sedation he is unresponsive eyes are spontaneously open but no tracking. Very slight withdrawal to pain on the upper extremities. CT of the head unremarkable. Currently borderline hypotensive off pressors. Received 2 units of PRBC for hemoglobin 6.6 yesterday. Prognosis remained poor. Neurology consulted per family request 02/10/18: Remains critical with no improvement in neuro status or clinical status. Eyes are spontaneously open but no response to threat no tracking. Neurology consulted MRI and EEG pending at this time. Currently remains on Levophed at 1 mcg/min. Chest x-ray with bilateral infiltrates sputum culture growing GNR. Na 155. Free water flushes and half-normal saline rate increased. 02/11: Remains unresponsive off all sedation. Osmolality slowly returning to baseline. Antibiotics appropriate for organism. Tube feeds tolerated at 50 mL' s per hour. Unable to wean from mechanical ventilation. 02/12: Osmolality slowly returning to baseline. Tube feeds now tolerated at 60 mL's per hour. Unable to wean from mechanical ventilation due to fatigue. 02/13: Placed on spontaneous breathing trial this morning but required 18 of pressure support to maintain an adequate minute volume. Will work from this point and attempt to wean pressure support over the next many days. Will place back on mechanical rate nightly. Anticoagulation is been particularly cumbersome and made more difficult by Diflucan. Will restart Coumadin again this morning as INR is declined to 2.2 02/14: Remains very weak. Essentially unresponsive. Tolerates brief periods of spontaneous breathing trial blood pressure support must be markedly elevated to the 1820 range. State of hydration gradually improving as osmolality declines and serum creatinine improves. Will continue hypotonic solutions IV. 02/15: Remains unresponsive. Continues to fail spontaneous breathing trials due to lack of respiratory effort. Suffers from tachypnea with an efficient small tidal volumes regardless of the amount of pressure support. 02/16: Onset of copious watery diarrhea is contaminating buttock wounds. We will insert a dignity shield system for fecal management. Remains unresponsive to noxious stimulation. He does have a weak cough reflex. 02/17: Patient is weaker on attempts at spontaneous breathing trials today. Patient remains unresponsive. Only reaction is a weak cough to suctioning. 02/18: Patient continues to do poorly on attempts at spontaneous breathing trials. Urine output is improved with diuresis, will follow renal function closely. 02/19: Albumin 1.1, further evidence that the patient is deteriorating. Responds to diuretics but prerenal azotemia quickly develops. 02/20: Ongoing attempts to remove excess soft tissue and pleural water consistently resolved and renal impairment. Unfortunately this is largely caused by his poor nutritional status. Despite sufficient nutritional support he continues to deteriorate clinically. 02/21: no improvements in function. still grossly anasarca. Cr worsening again. hypernatremia persists. 02/22: no changes. intermittently tachycardic. still gently diuresing. outlook poor. 02/23: no improvements. anemic this AM requiring transfusion of prbc. Family refuses to allow the holding of anticoagulation given multiple recent CVA, so anticoagulation will continue despite anemia. remains hypernatremic despite therapy. 02/24: no changes or improvements. HR came down with transfusion of prbc yesterday. 02/25: hgb stable. Cr worsens slightly. metabolic derangements have improved somewhat and sodium improving. no improvement in neurologic status. poor prognosis. 02/26, 02/27: Remains on mech ventilation via trach. No improvement in neuro status. 02/28: A.m. laboratories pending. Afebrile. No new changes overnight. 03/01: Remains on mechanical ventilation via tracheostomy. Neurologically unchanged. 03/02: Remains on mechanical ventilation via tracheostomy. Remains encephalopathic with no change in neurologic status. 03/03, 03/04, 03/05, 03/06: Remains encephalopathic on mechanical ventilation via tracheostomy. No change in neuro status. 03/07: Remains encephalopathic on mechanical ventilation via tracheostomy. Daily CPAP trials ongoing. No significant improvement in neurologic status over the last week. 03/09: No improvement in neurologic function. Glucose intolerance persists despite manipulation of insulin regimen. Recent sputum results noted and addressed by the infectious disease service. 03/10: No change. Tolerating tube feeds. Performs poorly on SBTs. Objective Vital Signs / I&O: Vital Signs 03/09/18 10:00 03/09/18 12:00 03/09/18 12:24 Temperature 98.3 F Pulse Rate 98 H 98 H Respiratory Rate 26 H 22 Blood Pressure 131/64 Pulse Oximetry 100 03/09/18 14:00 03/09/18 16:00 03/09/18 16:07 Temperature 97.4 F L Pulse Rate 91 H 94 H 97 H Respiratory Rate 29 H 28 H Blood Pressure 112/65 Pulse Oximetry 100 03/09/18 18:00 03/09/18 20:00 03/09/18 20:19 Temperature 98.5 F Pulse Rate 86 92 H Respiratory Rate 29 H 24 Blood Pressure 103/55 L Pulse Oximetry 99 03/09/18 20:26 03/09/18 22:00 03/10/18 00:00 Temperature 98.5 F Pulse Rate 89 100 H 102 H Respiratory Rate 24 25 H Blood Pressure 116/61 Pulse Oximetry 97 03/10/18 00:59 03/10/18 02:00 03/10/18 03:56 Temperature Pulse Rate 99 H 99 H 95 H Respiratory Rate 22 28 H Blood Pressure Pulse Oximetry 03/10/18 03:57 03/10/18 04:00 03/10/18 06:00 Temperature 98.4 F Pulse Rate 98 H 96 H Respiratory Rate 28 H 30 H Blood Pressure 108/63 Pulse Oximetry 97 96 03/10/18 08:30 03/10/18 08:31 Temperature Pulse Rate 100 H Respiratory Rate 22 Blood Pressure Pulse Oximetry 99 Intake & Output 03/09/18 03/10/18 03/10/18 18:59 06:59 18:59 Intake Total 1988.9375 / 1988.9375 2395.8750 / 2395.8750 Output Total 1400 / 1400 600 / 600 Balance 588.9375 / 588.9375 1795.8750 / 1795.8750 Weight 85.3 kg Intake: IV 525.9375 / 525.9375 1151.8750 / 1151.8750 Avycaz Inj 1.25 GM In NS Inj 50 100 / 100 ML @ 25 mls/hr IV.SIG Q12HR EDE Rx#:[id number] Bactrim [custom] Inj 415 MG In 525.9375 / 525.9375 1051.8750 / 1051.8750 D5W Inj 500.0000 ML @ 276.667 mls/hr IV.SIG Q8H EDE Rx#: [id number] Tube Feeding 803 / 803 644 / 644 Tube Irrigant 60 / 60 Water Bolus Amount 600 / 600 600 / 600 Output: Stool 300 / 300 Urine Amount (Catheter) 1100 / 1100 600 / 600 Indwelling Urethral Catheter 1100 / 1100 600 / 600 Other: Date of Last Bowel Movement 03/08/18 03/08/18 Result Diagrams: 03/09/18 05:45 03/09/18 05:45 Objective Remarks: GENERAL: Patient is 77 yo encephalopathic, unresponsive on the vent. Eyes are closed. SKIN: Warm and dry. Stage IV sacral decubitus, surrounding buttocks resolving excoriation. HEAD: Normocephalic. Tongue moist. EYES: No scleral icterus. No injection. PRABHA. NECK: Cuffed tracheostomy tube in place 6.0. Plentiful secretions persist. CARDIOVASCULAR: normal rate, regular rhythm. S1, S2. No S4. No JVD. RESPIRATORY: Diminished breath sounds in the bases bilaterally. Persistent scattered rhonchi. GASTROINTESTINAL: Abdomen soft. PEG tube site clean and dry. Bowel sounds active, no guarding. MUSCULOSKELETAL: No cyanosis. Generalized edema persists. NEURO: Eyes are closed. Unresponsive to stimulation in all 4 limbs. Weak cough reflex. Assessment and Plan - Assessment and Plan Plan: Assessment: Asystole/Cardiac arrest Worsening encephalopathy most likely anoxia contributing Aspiration pneumonia Acute on chronic hypoxemic and hypercapnic resp failure Combined shock, septic and cardiogenic Healthcare associated pneumonia, stenotrophomonas now with multidrug resistant Klebsiella pneumonia Candidemia -treated UTI with ESBL E. coli CVA Anemia requiring transfusion Sacral decubitus ulcer s/p NSTEMI Optic neuritis Status post tracheostomy and PEG tube placement Acute protein calorie malnutrition- severe Acute kidney injury Hypokalemia Plan: Impression: Neuro -Acute worsening of encephalopathy secondary to systolic cardiac arrest, anoxia -CT head 02/08/[address] Pereira reconsulted per family request -History of L ENID infarct. Status post systemic TPA on November 09 -Neuropsychology has followed. Continue with methylphenidate 10 mg twice daily -Optic neuritis. Status post treatment with IV hydrocortisone -Remains unresponsive. CV: -Asystole/cardiac arrest seems secondary to hypoxia and hypercapnia from severe aspiration -s/p IV fluid normal saline 2 L bolus, 2U PRBC -half-normal saline discontinued 02/28 along with furosemide 40 mg twice daily. Continue free water flushes at 300 mL every 6 -Continue warfarin currently 1 mg daily as per pharmacy's recommendation -Echo 10/19: LV systolic function is moderately reduced, EF 40-45%. Cardiology has followed Dr. Hernández -Doxazosin 2mg daily and carvedilol 3.125mg BID on hold due to hypotension. On atorvastatin 80mg qhs -As needed Midrin 10 every 8 as needed Pulm: -Cardiac arrest seems to be secondary to respiratory arrest. Evidence of aspiration at the time of arrest -Cuff less tracheostomy tube removed and new Shiley 8 cuffed tracheostomy placed 02/08/18 -PRVC/AC ventilation. Albuterol/ipratropium every 6 hours while awake scheduled and albuterol aerosols every 2 hours as needed -Failed CPAP due to apnea -ICU vent bundle. Pulm toilet, trach care. GI -Currently tube feeds at goal with vital 1.5 at 60 cc an hour. continue as tolerated. -On famotidine 10mg BID -Free water flushes 300 mils every 6 hours -Having BMs on polyethylene glycol 17 g daily Continue with hydrocortisone suppository twice daily [id number] 1% per rectal every 6 hours ordered Renal/: -Monitor renal function, electrolytes replacement per protocol. ID -Patient was receiving levofloxacin for stenotrophomonas, fluconazole for candidemia -Added meropenem 02/08/18 for previous ESBL E. coli HCAP. Currently on ceftazidime 1.25 g every 12 hours -Previous UTI with ESBL E. coli, Previous healthcare associated pneumonia with Klebsiella and ESBL E. coli -ID Dr. Jalloh following Skin -Sacral wound-Seen by Plastic surgery; debridement declined per patient's family -Wound care is following- apply dressings per wound management recommendations Heme: -Status post 2 units PRBC on 02/08/2018 now s/p additional 2 units prbc on 02/23 for recurrent anemia. -Previous GI bleed; Status post EGD colonoscopy. GI has signed off, patient with healed rectal ulcers and hemorrhoids. -INR currently 1.9.d pending Endo -On SSI with R insulin. Insulin detemir 30 units twice daily for glycemic control GI prophylaxis- on famotidine DVT prophylaxis- On warfarin and adjusted per pharmacy consultation. Overall impression: Patient remains critically ill after aspiration with hypoxemic and hypercarbic respiratory failure leading to asystolic cardiac arrest. Ten minutes of CPR with return of spontaneous circulation after aggressive resuscitation following CPR, patient remains hypoxemic and encephalopathy. Remains unresponsive, weak respiratory effort is ineffective during spontaneous trials, unable to begin weaning from ventilator. Prognosis remains poor. Situation has been discussed in detail with the family on multiple occasions. Daughter appears to be most vociferous spokesman at this time.
--- NOTE | 2018-03-10 12:10 | P.CONWOU ---
History of Present Illness Service: 03/10/18 Consult date: 03/10/18 Primary Care Provider: No Primary Care Physician Chief Complaint: Sacral Ulcer History of Present Illness: Here today accompanied by the wound care team which includes Bowen Ochoa RN [facility]. Patient remains on ventilator and is nonresponsive at this time. His and daughter are currently in the room. Discussed at length with daughter that the wound appears to be deteriorating and there is concerned that this deterioration is secondary to patient's declining health. Family remain faithful that he will improve and despite and want everything done to preserve patients life. PMFSH - Travel History History of Recent Travel: Yes (Patient flew from [place]) Medications and Allergies Active Medications: Active Medications Acetaminophen (Tylenol Liq) 650 mg PO Q6H PRN PRN Reason: FEVER Al Hydroxide/Mg Hydroxide (Milk Of Magnesia Liq) 30 ml PO Q12H PRN PRN Reason: Mild constipation Albuterol (Albuterol Neb (Prn)) 2.5 mg NEB Q2HR NEB PRN PRN Reason: DYSPNEA Last Admin: 03/10/18 00:59 Dose: 2.5 mg Albuterol (Duoneb Neb (Louie)) 1 ampul NEB Q6HR NEB LOUIE Last Admin: 03/10/18 08:24 Dose: 1 ampul Artificial Tears (Genteal Severe Dry Eye Relief 0.3% Opth Gel) 1 drops EACH EYE BID [facility] Last Admin: 03/10/18 08:29 Dose: 1 drops Atorvastatin Calcium (Llipitor) 80 mg PO HS [facility] Last Admin: 03/09/18 22:10 Dose: 80 mg Cod Liver Oil/Zinc Oxide (Desitin 40% Oint) 1 applicatio TOPICAL UNSCH PRN PRN Reason: DIAPER RASH Collagenase (Santyl Oint) 1 applicatio TOPICAL DAILY [facility] Last Admin: 03/09/18 08:38 Dose: 1 applicatio Dextrose (D50w Vial) 25 ml IV.PUSH UNSCH PRN PRN Reason: HYPOGLYCEMIA-SEE COMMENTS Last Admin: 02/18/18 21:18 Dose: 25 ml Famotidine (Pepcid) 10 mg PO BID [facility] Last Admin: 03/10/18 08:28 Dose: 10 mg Glucagon (Glucagon Inj) 1 mg OTHER UNSCH PRN PRN Reason: HYPOGLYCEMIA - SEE COMMENTS Last Admin: 03/01/18 05:21 Dose: 1 mg Heparin Sodium (Porcine) (Heparin Inj) 1,000 units OTHER WITH DIALYSIS PRN PRN Reason: SEE LABEL COMMENTS Hydrocortisone Acetate (Hemorrhoidal Hc Supp) 25 mg RECTAL BID [facility] Last Admin: 03/10/18 08:29 Dose: Not Given Hyoscyamine (Levsin Liq) 0.125 mg SL Q4H PRN PRN Reason: SECRETIONS Last Admin: 02/27/18 09:35 Dose: 0.125 mg Pharmacy Profile Note (Coumadin Consult Pharmacy) mls @ 0 mls/hr OTHER UNSCH [facility] Ceftazidime/Avibactam 1.25 gm/ (Sodium Chloride) 50 mls @ 25 mls/hr IV.SIG Q12HR [facility] Last Admin: 03/10/18 08:27 Dose: 100 mls/hr Trimethoprim/Sulfamethoxazole (415 mg/ Dextrose) 525.9375 mls @ 276.667 mls/hr IV.SIG Q8H [facility] Last Admin: 03/10/18 10:23 Dose: 276.67 mls/hr Insulin Detemir (Levemir Inj) 30 unit SQ BID [facility] Last Admin: 03/10/18 08:27 Dose: 30 unit Insulin Human Regular (Novolin R Supplemental Scale) 0 units SQ Q6HR [facility]; Protocol Last Admin: 03/10/18 05:35 Dose: 7 units Methylphenidate HCl (Ritalin) 10 mg PO BID@0800,1200 [facility] Last Admin: 03/10/18 08:35 Dose: 10 mg Midodrine (Proamatine) 10 mg PO Q8H PRN PRN Reason: map < 65 mmHg Miscellaneous (Pill Splitter) 1 each OTHER UNSCH PRN PRN Reason: SEE LABEL COMMENTS Ondansetron HCl (Zofran Inj) 4 mg IV.PUSH Q6H PRN PRN Reason: NAUSEA OR VOMITING Pharmacy Profile Note (Custom Consult Pharmacy) 1 each OTHER UNSCH PRN PRN Reason: PHARMACY DOCUMENTATION Polyethylene Glycol (Miralax) 17 gm PO DAILY [facility] Last Admin: 03/10/18 08:28 Dose: 17 gm Pramoxine HCl (Proctofoam) 1 applicatio RECTAL Q6HR [facility] Last Admin: 03/10/18 08:12 Dose: Not Given Sennosides (Senokot) 17.2 mg PO Q12H PRN PRN Reason: Moderate constipation Sodium Chloride (Ns Flush) 2 ml IV.FLUSH UNSCH PRN PRN Reason: FLUSH AFTER USING IV ACCESS Last Admin: 01/10/18 08:18 Dose: 2 ml Sodium Chloride (Ns Flush) 2 ml IV.FLUSH BID [facility] Last Admin: 03/10/18 08:30 Dose: 2 ml Sodium Chloride (Ns Flush) 10 ml IV.FLUSH UNSCH PRN PRN Reason: SEE LABEL COMMENTS Last Admin: 01/11/18 20:49 Dose: 10 ml Sterile Water (Free Water) 200 ml G-TUBE Q4H [facility] Last Admin: 03/10/18 08:29 Dose: 200 ml Warfarin Sodium (Coumadin) 1 mg PO DAILY@1600 [facility] Last Admin: 03/09/18 18:42 Dose: 1 mg Allergies Allergy/AdvReac Type Severity Reaction Status Date / Time Glucerna 1.5 AdvReac Vomiting Uncoded 02/09/18 12:04 Home Medications Medication Instructions Recorded Confirmed Type Actrapid 80 SUB-Q BID 12/25/17 History loperamide 2 mg PO DIRECTED PRN 12/25/17 12/25/17 History nepafenac 1 drp OPHTHALMIC (EYE) 12/25/17 History tobramycin-dexamethasone [TobraDex] 1 drp OPHTHALMIC (EYE) 12/25/17 12/25/17 History Physical Exam Vital signs: Vital Signs 03/09/18 12:00 03/09/18 12:24 03/09/18 14:00 Temperature 98.3 F Pulse Rate 98 H 91 H Respiratory Rate 26 H 22 Blood Pressure 131/64 Pulse Oximetry 100 03/09/18 16:00 03/09/18 16:07 03/09/18 18:00 Temperature 97.4 F L Pulse Rate 94 H 97 H 86 Respiratory Rate 29 H 28 H Blood Pressure 112/65 Pulse Oximetry 100 03/09/18 20:00 03/09/18 20:19 03/09/18 20:26 Temperature 98.5 F Pulse Rate 92 H 89 Respiratory Rate 29 H 24 24 Blood Pressure 103/55 L Pulse Oximetry 99 03/09/18 22:00 03/10/18 00:00 03/10/18 00:59 Temperature 98.5 F Pulse Rate 100 H 102 H 99 H Respiratory Rate 25 H 22 Blood Pressure 116/61 Pulse Oximetry 97 03/10/18 02:00 03/10/18 03:56 03/10/18 03:57 Temperature Pulse Rate 99 H 95 H Respiratory Rate 28 H 28 H Blood Pressure Pulse Oximetry 97 03/10/18 04:00 03/10/18 06:00 03/10/18 08:00 Temperature 98.4 F 98.4 F Pulse Rate 98 H 96 H 99 H Respiratory Rate 30 H 20 Blood Pressure 108/63 131/68 Pulse Oximetry 96 97 03/10/18 08:30 03/10/18 08:31 Temperature Pulse Rate 100 H Respiratory Rate 22 Blood Pressure Pulse Oximetry 99 Intake & Output 03/09/18 03/10/18 03/10/18 18:59 06:59 18:59 Intake Total 1988.9375 / 1988.9375 2395.8750 / 2395.8750 Output Total 1400 / 1400 600 / 600 Balance 588.9375 / 588.9375 1795.8750 / 1795.8750 Weight 85.3 kg Intake: IV 525.9375 / 525.9375 1151.8750 / 1151.8750 Avycaz Inj 1.25 GM In NS Inj 50 100 / 100 ML @ 25 mls/hr IV.SIG Q12HR LOUIE Rx#:[id number] Bactrim [custom] Inj 415 MG In 525.9375 / 525.9375 1051.8750 / 1051.8750 D5W Inj 500.0000 ML @ 276.667 mls/hr IV.SIG Q8H LOUIE Rx#: [id number] Tube Feeding 803 / 803 644 / 644 Tube Irrigant 60 / 60 Water Bolus Amount 600 / 600 600 / 600 Output: Stool 300 / 300 Urine Amount (Catheter) 1100 / 1100 600 / 600 Indwelling Urethral Catheter 1100 / 1100 600 / 600 Other: Date of Last Bowel Movement 03/08/18 03/08/18 03/08/18 - Urinary Catheter Management Straight Cath placed during this visit: yes Urethral indwelling: Yes Reason for continuing: Acute urinary retention Insertion date: 01/21/18 Insertion time: 08:00 Indwelling Urethral Catheter Cath placed during this visit: yes, but has since been removed by the nurse Urethral indwelling: Yes Reason for continuing: Acute urinary retention Insertion date: 01/21/18 Insertion time: 16:18 Removal date: 01/20/18 Removal time: 15:15 Wound/Pressure Injury - Patient Status Premedicated for Pain Prior to Dressing Change: No - Wound Right Lower Leg Wound Staging: Unstageable Wound Assessment: Ongoing Wound Type: Pressure Injury Is This a Chronic Wound: Yes Requested from Provider a Wound Care Consult: No (Radames EVLOZ,[facility] seen 02/17) Length (cm): 4 Width (cm): 3 Depth (cm): 0 (slough) Wound Bed Appearance: Red, White, Yellow Wound Bed Appearance: Wound bed presents with ~60% yellow adherent slough and ~40% pink tissue. Wound bed is moist with scant active sanguinous drainage. Surrounding Tissue Appearance: Blanched/Dull Surrounding Tissue Temperature: Warm Drainage Description: Serous Drainage Amount: Minimal Drainage Odor: No Odor Dressing Status: Changed Cleansing Solution: Saline Topical: Enzymatic Debridement Ointment Wound Packing Type: Gauze Pads Primary Dressing: Gauze Pad Cover Dressing: PRIMAPORE Tape Type: Paper Wound Dressing Change Date: 02/16/18 Wound Margin Description: Well defined and open Right Ankle Wound Assessment: Ongoing Wound Type: Pressure Injury Is This a Chronic Wound: Yes Requested from Provider a Wound Care Consult: No Length (cm): 2 Width (cm): 2 Depth (cm): 0 (slough) Wound Bed Appearance: [place], Peeling Skin, Red Wound Bed Appearance: Wound bed presents with ~80% yellow dry adherent slough and ~20% pink tissue Surrounding Tissue Appearance: Erythema Surrounding Tissue Temperature: Cool Drainage Description: Wright Drainage Amount: Minimal Drainage Odor: Slight Odor Dressing Status: Open to Air Cleansing Solution: Saline Topical: Medicated Ointment Wound Packing Type: Gauze Roll Primary Dressing: Gauze Pad Cover Dressing: primapore Tape Type: Cloth Wound Dressing Change Date: 02/19/18 Right Heel Wound Assessment: Ongoing Wound Type: Pressure Injury Length (cm): 1 Width (cm): 1 Wound Bed Appearance: Blisters - Intact Surrounding Tissue Appearance: [place] Dressing Status: Open to Air Topical: [employer] 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 Wound Assessment: Ongoing Wound Type: Pressure Injury Width (cm): 10 Depth (cm): 6 Wound Bed Appearance: [place], Red Surrounding Tissue Appearance: Blanched/Dull Drainage Description: Serous Drainage Amount: None Drainage Odor: No Odor Dressing Status: Open to Air Cleansing Solution: Saline Topical: Calazime Primary Dressing: Gauze Pad Cover Dressing: island dressing Wound Dressing Change Date: 02/17/18 Right Gluteal Cleft Wound Staging: Stage II Wound Assessment: Ongoing Wound Type: Pressure Injury Length (cm): 2 Width (cm): 2 Wound Bed Appearance: [place] Surrounding Tissue Appearance: Blanched/Dull Drainage Description: Serosanguinous Drainage Amount: Scant Drainage Odor: No Odor Dressing Status: Open to Air Cleansing Solution: Saline Topical: Calazime Primary Dressing: Open to air Sacrum Wound Staging: Unstageable Wound Assessment: Ongoing Wound Type: Pressure Injury Is This a Chronic Wound: Yes Requested from Provider a Wound Care Consult: Yes (ongoing) Length (cm): 12 Width (cm): 10 Depth (cm): 2 Wound Bed Appearance: Edematous, Red, Tunneling/Undermining, White, Yellow Wound Bed Appearance: Wound bed presents with an island of ~70% yellow slough, ~30% red tissue Surrounding Tissue Appearance: Edematous, Erythema Surrounding Tissue Temperature: Warm Drainage Description: Serous Drainage Amount: Moderate Drainage Odor: Slight Odor Dressing Status: Changed Cleansing Solution: Saline Topical: Enzymatic Debridement Ointment Wound Packing Type: Gauze Pads Primary Dressing: Gauze Pad Cover Dressing: PRIMAPORE Tape Type: none Wound Dressing Change Date: 03/08/18 Wound Margin Description: Wound margins are well defined Scrotum Wound Assessment: Ongoing Wound Type: Maceration Is This a Chronic Wound: No Requested from Provider a Wound Care Consult: No Wound Bed Appearance: Edematous, Tunneling/Undermining, White, Yellow Surrounding Tissue Appearance: [place] Surrounding Tissue Temperature: Warm Drainage Description: Serous Drainage Amount: Minimal Drainage Odor: No Odor Dressing Status: Open to Air Cleansing Solution: Saline Topical: CALAZIME Support Dressing: Sling Wound Dressing Change Date: 02/09/18 Left Posterior Leg Wound Assessment: Ongoing Wound Type: Pressure Injury Wound Bed Appearance: Red Drainage Description: Serous Drainage Amount: Minimal Dressing Status: Changed Topical: Enzymatic Debridement Ointment Primary Dressing: island dressing Cover Dressing: PRIMAPORE Right Upper Back Wound Assessment: Ongoing Wound Type: Pressure Injury Is This a Chronic Wound: Yes Wound Bed Appearance: [place], Shiny, Tunneling/Undermining, White, Yellow Surrounding Tissue Appearance: Erythema Surrounding Tissue Temperature: Cool Drainage Description: Serous Drainage Amount: Minimal Drainage Odor: No Odor Dressing Status: Changed Cleansing Solution: Saline Topical: Santyle Wound Packing Type: Gauze Pads Primary Dressing: Gauze Pad Cover Dressing: Adhesive Dressing Right Calf Wound Assessment: Ongoing Wound Type: Pressure Injury Length (cm): 2 Width (cm): 2 Wound Bed Appearance: Necrotic, [place], Yellow Surrounding Tissue Appearance: [place] Surrounding Tissue Temperature: Warm Drainage Description: Purulent Drainage Amount: None Drainage Odor: Slight Odor Dressing Status: Dry & Intact Cleansing Solution: Saline Topical: Enzymatic Debridement Ointment Cover Dressing: Gauze Pads Left Outer Knee Wound Assessment: Ongoing Wound Type: Pressure Injury Length (cm): 4 Width (cm): 2 Surrounding Tissue Appearance: [place] Drainage Description: Serosanguinous Drainage Amount: None Dressing Status: Open to Air Cleansing Solution: Saline Topical: calazime Primary Dressing: primapore - Additional Information 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 Patient is has a trach and is non verbal currently not responds to commands from family member/va underwriter in the room. Patient was turned to L side with the assistance of RN Yoel cody.Removed Bordered gauze gauze pads from Sacral wound . Wound bed presents initially with an island of ~80% yellow slough that is now loosely adherent with ~20% red tissue. Wound was cleansed with normal saline. Applied yon thick coverage of Santyl ointment to wound bed with saline moistened gauze pads that were loosely packed in wound bed. Skin barrier film was applied to periwound before covering wound with bordered gauze.Patient was positioned off bottom with pillow in place for support. Incision - Patient Status Premedicated for Pain Prior to Dressing Change: No Assessment and Plan - Assessment (1) Ulcer of sacral region, unstageable Code(s): L98.429 - Non-pressure chronic ulcer of back with unspecified severity Status: Acute Plan: 01/20/18:Wound dimensions this week are 9.3iso5ryn eschar and then slough. Using sterile scissors and forceps, loos e unstable eschar was removed cleanly leaving slough and esposed muscle tissue with granulation tissue. This was mechanically debrided and then cleaned with normal saline and then dressed with santyl and covered with moistened gauze and border gauze. Patient tolerated this well. 01/13/18:Wound dimensions this week are 9.4cmx9.2cmx1.9cm at the distal edge with fascia with eschar. Wound cleaned with normal saline and dressed with nickel thick Santyl and covered with moistened gauze and border gauze. 03/10/18: Wound dimensions this week 10.3cmx6.2oxs4km. Wound has now morphed into a stage 4 ulcer and has the appearance of a Damian ulcer. Wound was sharply debrided to remove devitalized tissue and then cleaned with normal saline. Wound was then dressed with nickel thick Santyl, moistened gauze and border gauze. Care instructions discussed with daughter and nurse. (2) Ulcer of right leg Code(s): L97.919 - Non-pressure chronic ulcer of unspecified part of right lower leg with unspecified severity Status: Acute Plan: 01/20/18: Wound dimensions this week are 1.8cmx1.2cmx slough. Wound was debrided to remove slough and devitalized tissue until a good bleeding base was achieved. Wound was then cleaned with normal saline and dressed with Santyl, moistened gauze and border gauze. Care instructions given. 03/10/18: Healed (3) Ulcer of right ankle Code(s): L97.319 - Non-pressure chronic ulcer of right ankle with unspecified severity Status: Acute Plan: 03/10/18: Healed (4) Ulcer of sacral region, stage 4 Code(s): L98.429 - Non-pressure chronic ulcer of back with unspecified severity Status: Acute Plan: 03/10/18: Wound dimensions this week 10.3cmx6.3whh4ox. Wound has now morphed into a stage 4 ulcer and has the appearance of a Damian ulcer. Wound was sharply debrided to remove devitalized tissue and then cleaned with normal saline. Wound was then dressed with nickel thick Santyl, moistened gauze and border gauze. Care instructions discussed with daughter and nurse. (5) Anoxic encephalopathy Code(s): G93.1 - Anoxic brain damage, not elsewhere classified Status: Acute Plan: Patient non responsive. Neuro following. - Plan 01/19/18: Wound dimensions this week are : 0.6cmx0.4cm x slough. Wound was mechanically debrided until a good bleeding base was achieved and then dressed with santyl and covered with nmoistened gauze and optifoam and gauze and jose e. Patient tolerated this well.
[2018-03-10] MEDS: Collagenase Oint 30 GM Tube TOPICAL SCH (12:43)
--- NOTE | 2018-03-10 16:54 | P.PN ---
Subjective Interval history: UNRESPONSIVE ON VENT TRACH [place] Physical Exam Vital signs: Vital Signs 03/09/18 18:00 03/09/18 20:00 03/09/18 20:19 Temperature 98.5 F Pulse Rate 86 92 H Respiratory Rate 29 H 24 Blood Pressure 103/55 L Pulse Oximetry 99 03/09/18 20:26 03/09/18 22:00 03/10/18 00:00 Temperature 98.5 F Pulse Rate 89 100 H 102 H Respiratory Rate 24 25 H Blood Pressure 116/61 Pulse Oximetry 97 03/10/18 00:59 03/10/18 02:00 03/10/18 03:56 Temperature Pulse Rate 99 H 99 H 95 H Respiratory Rate 22 28 H Blood Pressure Pulse Oximetry 03/10/18 03:57 03/10/18 04:00 03/10/18 06:00 Temperature 98.4 F Pulse Rate 98 H 96 H Respiratory Rate 28 H 30 H Blood Pressure 108/63 Pulse Oximetry 97 96 03/10/18 08:00 03/10/18 08:30 03/10/18 08:31 Temperature 98.4 F Pulse Rate 99 H 100 H Respiratory Rate 20 22 Blood Pressure 131/68 Pulse Oximetry 97 99 03/10/18 10:00 03/10/18 12:00 03/10/18 12:07 Temperature 97.8 F Pulse Rate 99 H 92 H Respiratory Rate 28 H 16 Blood Pressure 90/53 L Pulse Oximetry 95 97 03/10/18 13:27 03/10/18 14:00 03/10/18 16:00 Temperature 98.7 F Pulse Rate 89 89 82 Respiratory Rate 16 Blood Pressure 140/72 Pulse Oximetry 97 Intake & Output 03/09/18 03/10/18 03/10/18 18:59 06:59 18:59 Intake Total 1987.9375 / 1987.9375 2395.8750 / 2395.8750 575.9375 / 575.9375 Output Total 1400 / 1400 600 / 600 Balance 588.9375 / 588.9375 1795.8750 / 1795.8750 575.9375 / 575.9375 Weight 85.3 kg Intake: IV 525.9375 / 525.9375 1151.8750 / 1151.8750 575.9375 / 575.9375 Avycaz Inj 1.25 GM In NS Inj 50 100 / 100 50 / 50 ML @ 25 mls/hr IV.SIG Q12HR EDE Rx#:[id number] Bactrim [custom] Inj 415 MG In 525.9375 / 525.9375 1051.8750 / 1051.8750 525.9375 / 525.9375 D5W Inj 500.0000 ML @ 276.667 mls/hr IV.SIG Q8H EDE Rx#: [id number] Tube Feeding 803 / 803 644 / 644 Tube Irrigant 60 / 60 Water Bolus Amount 600 / 600 600 / 600 Output: Stool 300 / 300 Urine Amount (Catheter) 1100 / 1100 600 / 600 Indwelling Urethral Catheter 1100 / 1100 600 / 600 Other: Date of Last Bowel Movement 03/08/18 03/08/18 03/08/18 Narrative: GENERAL:on vent support male patient, UNRESPONSIVE. . SKIN: Warm and dry. +sacral decub per wound care notes. HEAD: Atraumatic. Normocephalic. EYES: Pupils equal and round. No scleral icterus. No injection or drainage. ENT: No nasal bleeding or discharge. Mucous membranes pink and moist. NECK: Trachea midline. Trach in place. CARDIOVASCULAR: Regular rate and rhythm. RESPIRATORY: No accessory muscle use. Clear to auscultation. Breath sounds equal bilaterally. GASTROINTESTINAL: Abdomen soft, non-tender, nondistended. PEG in place. GENITOURINARY: [place] in place - placed 01/21 MUSCULOSKELETAL: Extremities without clubbing, cyanosis, or edema. NEUROLOGICAL: Awake. Unable to follow commands. Nonverbal. PSYCHIATRIC: Calm. - Urinary Catheter Management Straight Cath placed during this visit: yes Urethral indwelling: Yes Reason for continuing: Acute urinary retention Insertion date: 01/21/18 Insertion time: 08:00 Indwelling Urethral Catheter Cath placed during this visit: yes, but has since been removed by the nurse Urethral indwelling: Yes Reason for continuing: Acute urinary retention Insertion date: 01/21/18 Insertion time: 16:18 Removal date: 01/20/18 Removal time: 15:15 Results - Labs CBC & Chem 7: 03/09/18 05:45 03/09/18 05:45 Laboratory Results - last 24 hr 03/09/18 03/09/18 03/10/18 18:48 22:18 00:03 PT INR POC Glucose 303 H 275 H 253 H 03/10/18 03/10/18 03/10/18 04:09 05:30 08:17 PT 18.3 H INR 1.8 POC Glucose 250 H 232 H 03/10/18 12:34 PT INR POC Glucose 283 H Assessment and Plan - Plan RESPIRATORY FAILURE S/P cva S/P HI S/P trach decubitus ulcer plan VENT SUPPORT PULM TOILET OUTLOOK POOR
[2018-03-11] MEDS: Insulin NovoLIN Regular Correctional Sugar Inj SQ SCH ×3 (00:29→17:46)
[2018-03-11] MEDS: TRIMETHOPRIM IV.SIG SCH ×6 (03:08→17:51)
[2018-03-11] MEDS: SULFAMETHOXAZOLE IV.SIG SCH ×6 (03:08→17:51)
[2018-03-11] MEDS: [UNRECOGNIZED DRUG - OTHER] IV.SIG SCH ×6 (03:08→17:51)
[2018-03-11 05:23] LABS: Hematocrit 25.5 % (39.0-51.0); Hemoglobin 7.9 gm/dL (13.0-17.0); Mean Corpuscular Hemoglobin 26.2 pg (27.0-34.0); Mean Corpuscular Volume 84.5 fL (80.0-100.0); Mean Platelet Volume 9.1 fL (7.0-11.0); Platelet Count 289 th/mm3 (150-450); Red Blood Count 3.01 mil/mm3 (4.50-5.90); Red Cell Distribution Width 21.5 % (11.6-17.2); White Blood Count 10.4 th/mm3 (4.0-11.0)
[2018-03-11 05:31] LABS: Prothrombin Time 20.4 sec (9.8-11.6)
[2018-03-11 05:47] LABS: Calcium 7.8 mg/dL (8.5-10.1); Carbon Dioxide 24.9 meq/L (21.0-32.0); Potassium 6.5 meq/L (3.5-5.1)
[2018-03-11] MEDS: Famotidine 20 MG Tablet PO SCH ×2 (08:24→21:52)
[2018-03-11] MEDS: Insulin Detemir Inj 1,000 UNIT/10 ML Vial SQ SCH ×2 (08:24→21:48)
[2018-03-11] MEDS: Polyethylene Glycol 3350 17 GM Packet PO SCH (08:24)
[2018-03-11] MEDS: Hydrocortisone Acetate 25 MG Supp RECTAL SCH (08:26)
[2018-03-11] MEDS: Hypromellose 0.3% Opth Gel 10 GM Bottle EACH EYE SCH (08:26)
[2018-03-11] MEDS: Collagenase Oint 30 GM Tube TOPICAL SCH (08:27)
[2018-03-11] MEDS: Ceftazidime/Avibactam Inj 1.25 GM in Sodium Chlor 0.9% Inj 50 ML IV.SIG SCH ×2 (08:29→21:52)
--- NOTE | 2018-03-11 09:58 | P.PN ---
Subjective Interval history: ON VENT SUPPORT UNRESPONSIVE Physical Exam Vital signs: Vital Signs 03/10/18 10:00 03/10/18 12:00 03/10/18 12:07 Temperature 97.8 F Pulse Rate 99 H 92 H Respiratory Rate 28 H 16 Blood Pressure 90/53 L Pulse Oximetry 95 97 03/10/18 13:27 03/10/18 14:00 03/10/18 16:00 Temperature 98.7 F Pulse Rate 89 89 82 Respiratory Rate 16 Blood Pressure 140/72 Pulse Oximetry 97 03/10/18 18:00 03/10/18 20:00 03/10/18 21:14 Temperature 98.6 F Pulse Rate 93 H 90 96 H Respiratory Rate 21 20 Blood Pressure 94/53 L Pulse Oximetry 100 03/10/18 21:15 03/10/18 22:00 03/10/18 23:49 Temperature Pulse Rate 106 H Respiratory Rate 20 24 Blood Pressure Pulse Oximetry 99 97 03/11/18 00:00 03/11/18 02:00 03/11/18 04:00 Temperature 98.6 F 98.9 F Pulse Rate 94 H 94 H 92 H Respiratory Rate 31 H 23 Blood Pressure 104/56 L 110/62 Pulse Oximetry 97 99 03/11/18 04:33 03/11/18 04:36 03/11/18 06:00 Temperature Pulse Rate 96 H 95 H Respiratory Rate 22 22 Blood Pressure Pulse Oximetry 100 03/11/18 08:00 Temperature 98.5 F Pulse Rate 93 H Respiratory Rate 24 Blood Pressure 108/59 L Pulse Oximetry 97 Intake & Output 03/10/18 03/11/18 03/11/18 18:59 06:59 18:59 Intake Total 1879.9375 / 1879.9375 2500.876 / 2500.876 Output Total 700 / 700 1100 / 1100 Balance 1179.9375 / 1179.9375 1400.876 / 1400.876 Weight 88.9 kg Intake: IV 575.9375 / 575.9375 1101.876 / 1101.876 Avycaz Inj 1.25 GM In NS Inj 50 50 / 50 50 / 50 ML @ 25 mls/hr IV.SIG Q12HR [facility] Rx#:[id number] Bactrim [custom] Inj 415 MG In 525.9375 / 525.9375 1051.876 / 1051.876 D5W Inj 500.0000 ML @ 276.667 mls/hr IV.SIG Q8H [facility] Rx#: [id number] Tube Feeding 674 / 674 799 / 799 Tube Irrigant 600 / 600 Water Bolus Amount 30 / 30 600 / 600 Output: Stool 100 / 100 500 / 500 Urine Amount (Catheter) 600 / 600 600 / 600 Indwelling Urethral Catheter 600 / 600 600 / 600 Other: Date of Last Bowel Movement 03/10/18 03/11/18 03/11/18 Narrative: GENERAL:on vent support male patient, UNRESPONSIVE. . SKIN: Warm and dry. +sacral decub per wound care notes. HEAD: Atraumatic. Normocephalic. EYES: Pupils equal and round. No scleral icterus. No injection or drainage. ENT: No nasal bleeding or discharge. Mucous membranes pink and moist. NECK: Trachea midline. Trach in place. CARDIOVASCULAR: Regular rate and rhythm. RESPIRATORY: No accessory muscle use. Clear to auscultation. Breath sounds equal bilaterally. GASTROINTESTINAL: Abdomen soft, non-tender, nondistended. PEG in place. GENITOURINARY: [place] in place - placed 01/21 MUSCULOSKELETAL: Extremities without clubbing, cyanosis, or edema. NEUROLOGICAL: Awake. Unable to follow commands. Nonverbal. PSYCHIATRIC: Calm. - Urinary Catheter Management Straight Cath placed during this visit: yes Urethral indwelling: Yes Reason for continuing: Acute urinary retention Insertion date: 01/21/18 Insertion time: 08:00 Indwelling Urethral Catheter Cath placed during this visit: yes, but has since been removed by the nurse Urethral indwelling: Yes Reason for continuing: Chronic Urinary Retention Insertion date: 01/21/18 Insertion time: 16:18 Removal date: 01/20/18 Removal time: 15:15 Results - Labs CBC & Chem 7: 03/11/18 04:42 03/11/18 04:42 Laboratory Results - last 24 hr 03/10/18 03/10/18 03/10/18 12:34 17:45 20:51 WBC RBC Hgb Hct MCV MCH MCHC RDW Plt Count MPV PT INR Sodium Potassium Chloride Carbon Dioxide Anion Gap BUN Creatinine Estimated GFR POC Glucose 283 H 227 H 276 H Random Glucose Calcium 03/11/18 03/11/18 03/11/18 00:25 04:42 04:42 WBC 10.4 RBC 3.01 L Hgb 7.9 L Hct 25.5 L MCV 84.5 MCH 26.2 L MCHC 31.0 L RDW 21.5 H Plt Count 289 MPV 9.1 PT INR Sodium 131 L Potassium 6.5 H D Chloride 97 L D Carbon Dioxide 24.9 Anion Gap 9 BUN 90 H Creatinine 1.82 H Estimated GFR 36 L POC Glucose 275 H Random Glucose 275 H Calcium 7.8 L 03/11/18 03/11/18 04:42 08:02 WBC RBC Hgb Hct MCV MCH MCHC RDW Plt Count MPV PT 20.4 H INR 2.0 Sodium Potassium Chloride Carbon Dioxide Anion Gap BUN Creatinine Estimated GFR POC Glucose 295 H Random Glucose Calcium Assessment and Plan - Plan RESPIRATORY FAILURE S/P cva S/P IN S/P trach decubitus ulcer plan VENT SUPPORT PULM TOILET [place]
--- NOTE | 2018-03-11 11:12 | P.PNCC ---
Subjective Subjective Remarks/Hospital Course: This is a 77-year-old male who initially presented with vision changes and concern for optic neuritis versus temporal arteritis. His initial presentation was on 10/14. His hospital course has been complicated by an NSTEMI with troponins which peaked at 10, ESBL E. coli urinary tract infection, rectal bleeding suspected from bleeding hemorrhoids, acute anemia secondary to blood loss with hemoglobin started around 14 and is trended down to 9.7 this morning. On his initial MRA he was found to have significant atherosclerotic cerebrovascular disease in all vascular territories. Today, he had an acute mental status change and was obtunded. Rapid response and stroke alert was called. His initial NIH stroke scale was 22. Dr. goldstein had conversations with Dr. Ulloa and neurology as well as Dr. sierra with gastroenterology. GI feels comfortable with giving thrombolytics and neurology feels strongly that this patient would benefit from systemic IV TPA therapy. I evaluated the patient on arrival to the intensive care unit. The patient is arousable, but very somnolent. He is Romansh speaking, and it is very difficult to ascertain whether or not he can follow commands. He does move all extremities spontaneously, although it appears that his left side is weaker than his right. He has noted facial droop. CT head is negative for acute hemorrhage. CTA head neck is significant for the same multivessel cerebrovascular disease that was present on admission. Given the high-risk nature of the stroke as well as his acute anemia this hospitalization, in preparation for giving emergent IV systemic TPA, I placed an arterial line as well as a large-bore peripheral IV so that we could draw serial labs, monitor his hemoglobin, and give blood products if necessary. I also had an additional discussion with the family where I reconfirmed that their goals were aggressive and they fully understood the significant risk of life-threatening hemorrhage associated with systemic TPA in a patient with new anemia and suspected GI bleeding. The family expressed understanding of his condition and understanding of the heightened risk of life-threatening bleeding, but still urged that we needed to get TPA. Immediately after giving IV TPA, patient had a tonic clonic seizure (witnessed on EEG) and became obtunded with acute hypoxic and hypercarbic respiratory failure and was emergently intubated (see separate procedure note for details). 11/10: remains intubated. encephalopathy persists. hgb stable s/p TPA. ~350cc bloody OG tube output, but this is slowing down. 11/11: more awake. on SBT. follows commands. 11/12: remains extubated. off vasopressors. no changes in mental status. 11/18/17 CCM Reconsult Note Patient was transferred to ICU today after a Halicat was called for AMS, hypoxia , high fever. Apparently patient was lethargic since a.m. in the last hour had been unresponsive and hence Halicat was called. Patient had a fever of 101.4 in a.m., T-max is 101.6. I immediately evaluated the patient in the ICU. Patient is completely unresponsive, oxygen saturation 87% on 4 L nasal cannula. Hypopneic. No response to deep pain. Patient was confirmed to be a full code and I proceeded with endotracheal intubation place him on mechanical ventilation as patient was not protecting airway. More history was obtained from discussion with ID Dr. Jalloh. She indicated patient had been increasingly lethargic with fever and also had urinary retention.She has discontinued Ertapenem, and started on meropenem, vancomycin and micafungin. Cultures have been sent and are pending now. Source of sepsis appears to be aspiration pneumonia versus UTI. Repeat UA and panculture pending at this time. Patient was borderline hypotensive prior to intubation and I have started on Levophed to avoid hypotension post intubation. Receiving 1 L normal saline bolus now, give additional fluid bolus if patient requires continued Levophed will place central line 11/19: remains intubated. holding aggrenox for possible thoracentesis today, but family hesitant to consent with concerns over bleeding risk. Cr remains elevated. discussion with Dr. Bernal, unlikely to benefit currently from draining effusion, so at his recommendation, will proceed with attempted weaning from mechanical ventilation and treat effusion conservatively. 11/20: Overnight /early this a.m. ,the patient was noted to have large amount of rectal bleeding. Aggrenox held since 11/18, 2/2 reintubation. Type and screen ordered. Serial H&H currently be performed. Hemodynamically stable. GI has been reconsulted. Protonix previously given PRN, will schedule BID. Patient was reintubated emergently 11/18, plan for continue CPAP trials. Tube feedings until evaluation by GI. ASA placed on hold , in the setting of GI bleeding. 11/21: EGD and colonoscopy performed yesterday. Patient was noted to be constipated ,disimpacted per GI. Patient noted to have hemorrhoids which was clipped. No further bleeding throughout the night. Chest x-ray showed improvement. CPAP trials initiated this a.m.. ASA 81 mg resumed. 11/22: Patient tolerated CPAP trials approximately 13 hours yesterday. Initiation of tube feeds per GI yesterday, no residuals. This am , family concerned patient not responsive. CT brain , ammonia level and EEG pending. Neurology has been reconsulted. Upon my entering the room, this afternoon, the patient was awake, tracking and squeezing my hand upon commands, with right hand. The patient received 1 u PRBC for Hgb 7.2. Post transfusion CBC pending. Plan for quantification of pleural fluid for possible thoracentesis in a.m.. 11/23: No acute events overnight. Patient remains off all sedation. Noted spontaneous eye opening, tracking following commands squeezing hands right greater than left. Neurology following plan for MRI this a.m., repeat EEG pending. Hemoglobin stable this a.m.. Chest x-ray slight improvement, plan for quantification via ultrasound of pleural effusions for possible thoracentesis today. 3 failed attempts at CPAP trials yesterday. 1548-MRI resulted findings consistent of small areas of acute cortical infarct, new since 11/09/2017. I contacted neurology, Dr. Geronimo informed of results. After Dr. Palma's review of imaging and records, it was determined most likely cardioembolic since is affecting both sides and failure with aspirin and Persantine. Ischemic stroke heparin protocol initiated. Careful review secondary to patient history of GI bleed 11/20, thought to be emanating from hemorrhoid ,however due to poor suboptimal prep, they unable to have optimal visualization per Dr. Jones. 11/24: Late entry note. Patient seen and evaluated 614. No acute events overnight. Patient continues on heparin infusion no active signs of bleeding. PTT within therapeutic range. The patient is less responsive this a.m., spontaneous eye opening, not following my commands. Not moving his extremities spontaneously for me as previously performed yesterday. tube feeds reinitiated. Chest x-ray showed further improvement in aeration of lungs the patient continues on FiO2 of 0.35. Plan for CPAP trials today. 11/25: No acute events overnight. Neurological status unchanged. Spontaneous eye opening patient continues not following any commands. Dr. Geronimo at bedside evaluating patient, no change. Patient tolerated CPAP trials approximately 12 hours yesterday. Tolerating tube feeds. Chest x-ray remains unchanged from yesterday. Hemoccult stool negative. Heparin infusion continued. family at bedside. 11/26: Late entry note. Patient seen at 1240pm. Last night the patient was noted to be continuously hyperglycemic. Levemir added to medication regimen 10 mg/day hemoglobin dropped 2 g/dL in 2 days hemoglobin now 7.7, patient to be transfused 1 unit packed red blood. No obvious signs of bleeding Hemoccult was negative. Patient continues on heparin infusion, patient may require tracheostomy and PEG in the near future . Plan to transition to p.o. anticoagulation post procedures. Neurologically the status is unchanged the patient is opens eyes spontaneously no movement of extremities upon my evaluation. Continued CPAP trials currently greater than 6 hours. 11/27: At 1000am, the patient was noted to have melena, approximated at 150 cc per RN evaluation. Heparin infusion discontinued/placed on hold at 10 AM. Stool for Hemoccult blood sent, GI was contacted and informed of the above events. Stat CT of the abdomen and pelvis with p.o. contrast ordered, results pending. Patient previously had been tolerating trickle feeds at 10 cc an hour with no residuals, after initiation of Reglan 5 mg every 8 hours yesterday. Neurologically the patient status is unchanged. Patient does have spontaneous eye opening but does not follow my commands and does not move extremities. Patient's daughter is at bedside, discussed the above events at which she was present for, she is requesting a repeat colonoscopy. I informed her that a CT of the abdomen and pelvis will be obtained, serial hemoglobin will be evaluated and if needed transfusion will be provided and gastroenterology has been contacted and will determine further management if an invasive procedure is required. Hemoglobin continues to be monitored serially, results pending for 10 AM. The patient received 1 unit packed red blood cells, and current hemoglobin trended overnight 8.9 to 8.2 this a.m., posttransfusion. 11/28: hgb continues to decline despite being off heparin. no additional GI interventions are available at this time. clearly the patient has failed anticoagulation with 2 life-threatening bleeding episodes. Although it is clear he may have additional strokes off anticoagulation, we have clear evidence that we are hurting his overall clinical care with his anticoagulation. I explained this at length to the daughter and medical decision maker. however, she insists that she would rather see him of bleeding rather than have any more strokes , and insists that "we can always keep giving him blood". I explained that blood is not without risk, and there is significant risk to anticoagulation, but she is insistent that he be given anticoagulation to prevent further strokes and she has weighed the risks and benefits after having full informed consent, insists upon us restarting the heparin drip. At her insistence, I have restarted it. In addition, I have counseled her that I do not think he will survive this hospitalization, and he will require tracheostomy for further aggressive care. She states that we are not at "day 14" on the vent, and it is not time for a tracheostomy yet. This is a second intubation and we are certainly at risk for complications from endotracheal intubation, and tracheostomy would be the most appropriate next step for this patient, but the family is refusing until WednesdayDecember 01. 11/29 Patient remains intubated, on no sedation. Afebrile. 11/30 No events overnight. Patient tolerated CPAP for most of day yesterday. Remains on Heparin drip. 12/01 Patient remains intubated tolerated CPAP for several hrs yesterday. s/p CT guided right thoracentesis with removal 500ml pleural fluid. On Heparin drip 12/02 No events overnight. Heparin drip stopped this morning for trach and PEG placement today. Afebrile. 12/03 Patient s/p trach and PEG tube placement yesterday. Had bleeding from around trach and PEG tube insertion sites Heparin drip held last night. s/p transfusion 1u PRBC yesterday Hgb 8.0 this morning. Afebrile. On no sedation. 12/04: Continues to have bruising from PEG tube insertion site. Trach site appears to have stopped. Hemoglobin 7 the same receiving 1 unit FFP and 1 PRBCs. Tube feeds of been resumed. On no sedation. 12/05: Afebrile. No further bleeding noted from the tracheostomy site. Overnight reported by the RN that the PEG tube site continues to bleed Surgicel was placed around the opening, small amount of bleeding still noted. Patient hemoglobin remained 7 patient to be transfused 1 unit PRBC's fibrinogen level pending INR within normal limits. 12/06 Patient s/p transfusion 2u PRBC yesterday Hgb 9.5 this morning from 7.2 last night. No bleeding from trach site however patient still having rectal bleeding. 12/07 No events overnight. On ventilator via trach Hgb 9.8 this morning for colonoscopy today. 12/08: seen and examined around 06:30am. no significant change in mental status. hgb 8.9 this AM. remains on heparin drip at [facility]. 12/09: no improvements or changes. very deconditioned. garcia has remained in without clear indication. had 1 episode of urinary retention, but this is a clear source of infection and an additional serious infection would certainly be life-threatening. 12/10 Patient is now on TP's with 28% FIO2, Afebrile. On Heparin drip. 12/11: remains on t-piece x > 48h. no change in neuro exam. remains on heparin drip with stable hgb 7.8. 12/12: asked to see patient again today by the hospitalist service for change in condition. I have evaluated the patient and he does not clinically appear any different than yesterday. HR actually lower than yesterday. bladder scan suggestive of 600cc retention. patient has had urinary retention before, although has also had multiple hospital acquired urinary tract infections. risk/ benefit at this time would be in favor of serial q6h straight catheterizations. remains hemodynamically stable. some emesis today and evidence of ileus. 12/31 Reconsult for resp distress Patient is 77 yo with chronic resp failure, trach/PEG tube placement, CVA transferred to [facility] for resp distress trach changes to #6 and patient was placed on mechanical ventilation. CXR showed increasing consolidation patient was given Lasix prior to arrival to [facility]. 01/01 Patient is on ventilator via trach. Afebrile. 01/02 No events overnight. On no drips, Afebrile, CPAP 15/5 with 35% FIO2 overnight. 01/03 Remained on TP breathing comfortably. CXR shows bilateral effusions. Will get CT chest. Give single dose of lasix. ID consulted and following, no fever in 24 hours 01/04: Remains unresponsive, fever trending down. Sputum culture now growing Klebsiella and ESBL E. coli. Urine culture and wound culture also growing ESBL E. coli. Chest tube placed on the right side yesterday with 1.35 L output since placement. Urine output excellent with single dose of Lasix 2.5 L in 24 hours. No fever in 24 hours. Repeat 40 mg IV Lasix [facility] RECONSULT NOTE 02/08/18: Mr. Glynn is a 77-year-old man who is known to our service. In short, he was initially admitted with possible optic neuritis versus temporal arteritis in September. Care complicated by an STEMI, multiple infections with healthcare associated pneumonia UTIs. During hospitalization he also received TPA for Stroke, MRI of the brain performed on 12/24/2017, showed infarction involving the left corpus callosum and splenium of the corpus callosum. The patient had undergone tracheostomy placement. And since last month had been on hospitalist service and off ventilator. He is currently receiving Levaquin for stenotrophomonas infection, Diflucan for candidemia. Apparently patient was noted to aspirate earlier this a.m. At 7250 AM patient was found unresponsive pulseless rhythm asystole and CPR was started. Total 3 amp of epinephrine given. Patient had a cuff less trach with evidence of aspiration, large amount of tube feeds aspirated from tracheostomy tube. This was exchanged for a 8.0 Shiley tracheostomy cuffed. With improved bag and mask ventilation and after 3 epinephrine, 1 amp of calcium, 1 amp of bicarb, patient regained ROSC SUBJ 02/09/18: Remains very critical not on any sedation he is unresponsive eyes are spontaneously open but no tracking. Very slight withdrawal to pain on the upper extremities. CT of the head unremarkable. Currently borderline hypotensive off pressors. Received 2 units of PRBC for hemoglobin 6.6 yesterday. Prognosis remained poor. Neurology consulted per family request 02/10/18: Remains critical with no improvement in neuro status or clinical status. Eyes are spontaneously open but no response to threat no tracking. Neurology consulted MRI and EEG pending at this time. Currently remains on Levophed at 1 mcg/min. Chest x-ray with bilateral infiltrates sputum culture growing GNR. Na 155. Free water flushes and half-normal saline rate increased. 02/11: Remains unresponsive off all sedation. Osmolality slowly returning to baseline. Antibiotics appropriate for organism. Tube feeds tolerated at 50 mL' s per hour. Unable to wean from mechanical ventilation. 02/12: Osmolality slowly returning to baseline. Tube feeds now tolerated at 60 mL's per hour. Unable to wean from mechanical ventilation due to fatigue. 02/13: Placed on spontaneous breathing trial this morning but required 18 of pressure support to maintain an adequate minute volume. Will work from this point and attempt to wean pressure support over the next many days. Will place back on mechanical rate nightly. Anticoagulation is been particularly cumbersome and made more difficult by Diflucan. Will restart Coumadin again this morning as INR is declined to 2.2 02/14: Remains very weak. Essentially unresponsive. Tolerates brief periods of spontaneous breathing trial blood pressure support must be markedly elevated to the 1820 range. State of hydration gradually improving as osmolality declines and serum creatinine improves. Will continue hypotonic solutions IV. 02/15: Remains unresponsive. Continues to fail spontaneous breathing trials due to lack of respiratory effort. Suffers from tachypnea with an efficient small tidal volumes regardless of the amount of pressure support. 02/16: Onset of copious watery diarrhea is contaminating buttock wounds. We will insert a dignity shield system for fecal management. Remains unresponsive to noxious stimulation. He does have a weak cough reflex. 02/17: Patient is weaker on attempts at spontaneous breathing trials today. Patient remains unresponsive. Only reaction is a weak cough to suctioning. 02/18: Patient continues to do poorly on attempts at spontaneous breathing trials. Urine output is improved with diuresis, will follow renal function closely. 02/19: Albumin 1.1, further evidence that the patient is deteriorating. Responds to diuretics but prerenal azotemia quickly develops. 02/20: Ongoing attempts to remove excess soft tissue and pleural water consistently resolved and renal impairment. Unfortunately this is largely caused by his poor nutritional status. Despite sufficient nutritional support he continues to deteriorate clinically. 02/21: no improvements in function. still grossly anasarca. Cr worsening again. hypernatremia persists. 02/22: no changes. intermittently tachycardic. still gently diuresing. outlook poor. 02/23: no improvements. anemic this AM requiring transfusion of prbc. Family refuses to allow the holding of anticoagulation given multiple recent CVA, so anticoagulation will continue despite anemia. remains hypernatremic despite therapy. 02/24: no changes or improvements. HR came down with transfusion of prbc yesterday. 02/25: hgb stable. Cr worsens slightly. metabolic derangements have improved somewhat and sodium improving. no improvement in neurologic status. poor prognosis. 02/26, 02/27: Remains on mech ventilation via trach. No improvement in neuro status. 02/28: A.m. laboratories pending. Afebrile. No new changes overnight. 03/01: Remains on mechanical ventilation via tracheostomy. Neurologically unchanged. 03/02: Remains on mechanical ventilation via tracheostomy. Remains encephalopathic with no change in neurologic status. 03/03, 03/04, 03/05, 03/06: Remains encephalopathic on mechanical ventilation via tracheostomy. No change in neuro status. 03/07: Remains encephalopathic on mechanical ventilation via tracheostomy. Daily CPAP trials ongoing. No significant improvement in neurologic status over the last week. 03/09: No improvement in neurologic function. Glucose intolerance persists despite manipulation of insulin regimen. Recent sputum results noted and addressed by the infectious disease service. 03/10: No change. Tolerating tube feeds. Performs poorly on SBTs. 03/11: Potassium 6.7 with hemolysis, will redraw. No improvement. Objective Vital Signs / I&O: Vital Signs 03/10/18 12:00 03/10/18 12:07 03/10/18 13:27 Temperature 97.8 F Pulse Rate 92 H 89 Respiratory Rate 28 H 16 Blood Pressure 90/53 L Pulse Oximetry 95 97 03/10/18 14:00 03/10/18 16:00 03/10/18 18:00 Temperature 98.7 F Pulse Rate 89 82 93 H Respiratory Rate 16 Blood Pressure 140/72 Pulse Oximetry 97 03/10/18 20:00 03/10/18 21:14 03/10/18 21:15 Temperature 98.6 F Pulse Rate 90 96 H Respiratory Rate 21 20 20 Blood Pressure 94/53 L Pulse Oximetry 100 99 03/10/18 22:00 03/10/18 23:49 03/11/18 00:00 Temperature 98.6 F Pulse Rate 106 H 94 H Respiratory Rate 24 31 H Blood Pressure 104/56 L Pulse Oximetry 97 97 03/11/18 02:00 03/11/18 04:00 03/11/18 04:33 Temperature 98.9 F Pulse Rate 94 H 92 H 96 H Respiratory Rate 23 22 Blood Pressure 110/62 Pulse Oximetry 99 03/11/18 04:36 03/11/18 06:00 03/11/18 08:00 Temperature 98.5 F Pulse Rate 95 H 93 H Respiratory Rate 22 24 Blood Pressure 108/59 L Pulse Oximetry 100 97 03/11/18 10:00 Temperature Pulse Rate 91 H Respiratory Rate Blood Pressure Pulse Oximetry Intake & Output 03/10/18 03/11/18 03/11/18 18:59 06:59 18:59 Intake Total 1879.9375 / 1879.9375 2500.876 / 2500.876 Output Total 700 / 700 1100 / 1100 Balance 1179.9375 / 1179.9375 1400.876 / 1400.876 Weight 88.9 kg Intake: IV 575.9375 / 575.9375 1101.876 / 1101.876 Avycaz Inj 1.25 GM In NS Inj 50 50 / 50 50 / 50 ML @ 25 mls/hr IV.SIG Q12HR EDE Rx#:[id number] Bactrim [custom] Inj 415 MG In 525.9375 / 525.9375 1051.876 / 1051.876 D5W Inj 500.0000 ML @ 276.667 mls/hr IV.SIG Q8H EDE Rx#: [id number] Tube Feeding 674 / 674 799 / 799 Tube Irrigant 600 / 600 Water Bolus Amount 30 / 30 600 / 600 Output: Stool 100 / 100 500 / 500 Urine Amount (Catheter) 600 / 600 600 / 600 Indwelling Urethral Catheter 600 / 600 600 / 600 Other: Date of Last Bowel Movement 03/10/18 03/11/18 03/11/18 Result Diagrams: 03/11/18 04:42 03/11/18 04:42 Objective Remarks: GENERAL: Patient is 77 yo encephalopathic, unresponsive, remains on the vent. Eyes are closed. SKIN: Warm and dry. Stage IV sacral decubitus, surrounding buttocks resolving excoriation. HEAD: Normocephalic. Tongue moist. EYES: No scleral icterus. No injection. PRABHA. NECK: Cuffed tracheostomy tube in place 6.0. Plentiful secretions persist. CARDIOVASCULAR: normal rate, regular rhythm. S1, S2. No S4. No JVD. RESPIRATORY: Diminished breath sounds in the bases bilaterally. Persistent scattered rhonchi. GASTROINTESTINAL: Abdomen soft. PEG tube site clean and dry. Bowel sounds active, no guarding. MUSCULOSKELETAL: No cyanosis. Generalized edema persists. NEURO: Eyes are closed. Unresponsive to stimulation in all 4 limbs. Weak cough reflex. Assessment and Plan - Assessment and Plan Plan: Assessment: Asystole/Cardiac arrest Worsening encephalopathy most likely anoxia contributing Aspiration pneumonia Acute on chronic hypoxemic and hypercapnic resp failure Combined shock, septic and cardiogenic Healthcare associated pneumonia, stenotrophomonas now with multidrug resistant Klebsiella pneumonia Candidemia -treated UTI with ESBL E. coli CVA Anemia requiring transfusion Sacral decubitus ulcer s/p NSTEMI Optic neuritis Status post tracheostomy and PEG tube placement Acute protein calorie malnutrition- severe Acute kidney injury Hypokalemia Plan: Impression: Neuro -Acute worsening of encephalopathy secondary to systolic cardiac arrest, anoxia -CT head 02/08/[address] Pereira reconsulted per family request -History of L ENID infarct. Status post systemic TPA on November 09 -Neuropsychology has followed. Continue with methylphenidate 10 mg twice daily -Optic neuritis. Status post treatment with IV hydrocortisone -Remains unresponsive. CV: -Asystole/cardiac arrest seems secondary to hypoxia and hypercapnia from severe aspiration -s/p IV fluid normal saline 2 L bolus, 2U PRBC -half-normal saline discontinued 02/28 along with furosemide 40 mg twice daily. Continue free water flushes at 300 mL every 6 -Continue warfarin currently 1 mg daily as per pharmacy's recommendation -Echo 10/19: LV systolic function is moderately reduced, EF 40-45%. Cardiology has followed Dr. Hernández -Doxazosin 2mg daily and carvedilol 3.125mg BID on hold due to hypotension. On atorvastatin 80mg qhs -As needed Midrin 10 every 8 as needed Pulm: -Cardiac arrest seems to be secondary to respiratory arrest. Evidence of aspiration at the time of arrest -Cuff less tracheostomy tube removed and new Shiley 8 cuffed tracheostomy placed 02/08/18 -PRVC/AC ventilation. Albuterol/ipratropium every 6 hours while awake scheduled and albuterol aerosols every 2 hours as needed -Failed CPAP due to apnea -ICU vent bundle. Pulm toilet, trach care. GI -Currently tube feeds at goal with vital 1.5 at 60 cc an hour. continue as tolerated. -On famotidine 10mg BID -Free water flushes 300 mils every 6 hours -Having BMs on polyethylene glycol 17 g daily Continue with hydrocortisone suppository twice daily [id number] 1% per rectal every 6 hours ordered Renal/: -Monitor renal function, electrolytes replacement per protocol. ID -Patient was receiving levofloxacin for stenotrophomonas, fluconazole for candidemia -Added meropenem 02/08/18 for previous ESBL E. coli HCAP. Currently on ceftazidime 1.25 g every 12 hours -Previous UTI with ESBL E. coli, Previous healthcare associated pneumonia with Klebsiella and ESBL E. coli -ID Dr. Jalloh following Skin -Sacral wound-Seen by Plastic surgery; debridement declined per patient's family -Wound care is following- apply dressings per wound management recommendations Heme: -Status post 2 units PRBC on 02/08/2018 now s/p additional 2 units prbc on 02/23 for recurrent anemia. -Previous GI bleed; Status post EGD colonoscopy. GI has signed off, patient with healed rectal ulcers and hemorrhoids. -INR currently 1.9.d pending Endo -On SSI with R insulin. Insulin detemir 30 units twice daily for glycemic control. Increase today 03/11 GI prophylaxis- on famotidine DVT prophylaxis- On warfarin and adjusted per pharmacy consultation. Overall impression: Patient remains critically ill after aspiration with hypoxemic and hypercarbic respiratory failure leading to asystolic cardiac arrest. Ten minutes of CPR with return of spontaneous circulation after aggressive resuscitation following CPR, patient remains hypoxemic and encephalopathy. Remains unresponsive, weak respiratory effort is ineffective during spontaneous trials, unable to begin weaning from ventilator. Prognosis remains poor. Situation has been discussed in detail with the family on multiple occasions. Daughter appears to be most vociferous spokesman at this time.
--- NOTE | 2018-03-11 19:24 | P.PNWCN ---
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) Wound Assessment: Ongoing Wound Type: Pressure Injury Is This a Chronic Wound: Yes Requested from Provider a Wound Care Consult: Yes (ongoing) Length: 10.3 (cm) Width: 6.1 (cm) Depth: 3 (cm) Wound Bed Appearance: Red, Shiny, Yellow Wound Bed Appearance: Wound bed presents with an island of ~40% red non granulation tissue,~50% loosely adherent slough and , ~10% facia Surrounding Tissue Appearance: Anthon Surrounding Tissue Temperature: Cool Drainage Description: Serosanguinous Drainage Amount: Moderate Drainage Odor: No Odor Dressing Status: Changed Cleansing Solution: Saline Topical: Enzymatic Debridement Ointment Wound Packing Type: Gauze Pads Primary Dressing: Gauze Pad Cover Dressing: bordered gauze Wound Dressing Change Date: 03/11/18 Wound Margin Description: Wound margins are well defined Scrotum Dressing Status: Open to Air - Additional Information Patient seen for follow up of previously noted unstageable pressure injury with Doctor Upton. Wound is now noted as a stage IV Incision - Patient Status Premedicated for Pain Prior to Dressing Change: No
[2018-03-12] MEDS: Insulin NovoLIN Regular Correctional Sugar Inj SQ SCH ×2 (01:45→05:30)
[2018-03-12] MEDS: Hydrocortisone Acetate 25 MG Supp RECTAL SCH (01:46)
[2018-03-12] MEDS: Hypromellose 0.3% Opth Gel 10 GM Bottle EACH EYE SCH (01:46)
[2018-03-12] MEDS: SULFAMETHOXAZOLE IV.SIG SCH ×4 (03:39→10:34)
[2018-03-12] MEDS: TRIMETHOPRIM IV.SIG SCH ×4 (03:39→10:34)
[2018-03-12] MEDS: [UNRECOGNIZED DRUG - OTHER] IV.SIG SCH ×4 (03:39→10:34)
[2018-03-12 04:53] LABS: INR 2.2 Ratio; Prothrombin Time 22.4 sec (9.8-11.6)
--- NOTE | 2018-03-12 07:37 | P.PNCC ---
Subjective Subjective Remarks/Hospital Course: This is a 77-year-old male who initially presented with vision changes and concern for optic neuritis versus temporal arteritis. His initial presentation was on 10/14. His hospital course has been complicated by an NSTEMI with troponins which peaked at 10, ESBL E. coli urinary tract infection, rectal bleeding suspected from bleeding hemorrhoids, acute anemia secondary to blood loss with hemoglobin started around 14 and is trended down to 9.7 this morning. On his initial MRA he was found to have significant atherosclerotic cerebrovascular disease in all vascular territories. Today, he had an acute mental status change and was obtunded. Rapid response and stroke alert was called. His initial NIH stroke scale was 22. Dr. goldstein had conversations with Dr. Ulloa and neurology as well as Dr. sierra with gastroenterology. GI feels comfortable with giving thrombolytics and neurology feels strongly that this patient would benefit from systemic IV TPA therapy. I evaluated the patient on arrival to the intensive care unit. The patient is arousable, but very somnolent. He is Slov[place] speaking, and it is very difficult to ascertain whether or not he can follow commands. He does move all extremities spontaneously, although it appears that his left side is weaker than his right. He has noted facial droop. CT head is negative for acute hemorrhage. CTA head neck is significant for the same multivessel cerebrovascular disease that was present on admission. Given the high-risk nature of the stroke as well as his acute anemia this hospitalization, in preparation for giving emergent IV systemic TPA, I placed an arterial line as well as a large-bore peripheral IV so that we could draw serial labs, monitor his hemoglobin, and give blood products if necessary. I also had an additional discussion with the family where I reconfirmed that their goals were aggressive and they fully understood the significant risk of life-threatening hemorrhage associated with systemic TPA in a patient with new anemia and suspected GI bleeding. The family expressed understanding of his condition and understanding of the heightened risk of life-threatening bleeding, but still urged that we needed to get TPA. Immediately after giving IV TPA, patient had a tonic clonic seizure (witnessed on EEG) and became obtunded with acute hypoxic and hypercarbic respiratory failure and was emergently intubated (see separate procedure note for details). 11/10: remains intubated. encephalopathy persists. hgb stable s/p TPA. ~350cc bloody OG tube output, but this is slowing down. 11/11: more awake. on SBT. follows commands. 11/12: remains extubated. off vasopressors. no changes in mental status. 11/18/17 CCM Reconsult Note Patient was transferred to ICU today after a Halicat was called for AMS, hypoxia , high fever. Apparently patient was lethargic since a.m. in the last hour had been unresponsive and hence Halicat was called. Patient had a fever of 101.4 in a.m., T-max is 101.6. I immediately evaluated the patient in the ICU. Patient is completely unresponsive, oxygen saturation 87% on 4 L nasal cannula. Hypopneic. No response to deep pain. Patient was confirmed to be a full code and I proceeded with endotracheal intubation place him on mechanical ventilation as patient was not protecting airway. More history was obtained from discussion with ID Dr. Jalloh. She indicated patient had been increasingly lethargic with fever and also had urinary retention.She has discontinued Ertapenem, and started on meropenem, vancomycin and micafungin. Cultures have been sent and are pending now. Source of sepsis appears to be aspiration pneumonia versus UTI. Repeat UA and panculture pending at this time. Patient was borderline hypotensive prior to intubation and I have started on Levophed to avoid hypotension post intubation. Receiving 1 L normal saline bolus now, give additional fluid bolus if patient requires continued Levophed will place central line 11/19: remains intubated. holding aggrenox for possible thoracentesis today, but family hesitant to consent with concerns over bleeding risk. Cr remains elevated. discussion with Dr. Bernal, unlikely to benefit currently from draining effusion, so at his recommendation, will proceed with attempted weaning from mechanical ventilation and treat effusion conservatively. 11/20: Overnight /early this a.m. ,the patient was noted to have large amount of rectal bleeding. Aggrenox held since 11/18, 2/2 reintubation. Type and screen ordered. Serial H&H currently be performed. Hemodynamically stable. GI has been reconsulted. Protonix previously given PRN, will schedule BID. Patient was reintubated emergently 11/18, plan for continue CPAP trials. Tube feedings until evaluation by GI. ASA placed on hold , in the setting of GI bleeding. 11/21: EGD and colonoscopy performed yesterday. Patient was noted to be constipated ,disimpacted per GI. Patient noted to have hemorrhoids which was clipped. No further bleeding throughout the night. Chest x-ray showed improvement. CPAP trials initiated this a.m.. ASA 81 mg resumed. 11/22: Patient tolerated CPAP trials approximately 13 hours yesterday. Initiation of tube feeds per GI yesterday, no residuals. This am , family concerned patient not responsive. CT brain , ammonia level and EEG pending. Neurology has been reconsulted. Upon my entering the room, this afternoon, the patient was awake, tracking and squeezing my hand upon commands, with right hand. The patient received 1 u PRBC for Hgb 7.2. Post transfusion CBC pending. Plan for quantification of pleural fluid for possible thoracentesis in a.m.. 11/23: No acute events overnight. Patient remains off all sedation. Noted spontaneous eye opening, tracking following commands squeezing hands right greater than left. Neurology following plan for MRI this a.m., repeat EEG pending. Hemoglobin stable this a.m.. Chest x-ray slight improvement, plan for quantification via ultrasound of pleural effusions for possible thoracentesis today. 3 failed attempts at CPAP trials yesterday. 1548-MRI resulted findings consistent of small areas of acute cortical infarct, new since 11/09/2017. I contacted neurology, Dr. Geronimo informed of results. After Dr. Palma's review of imaging and records, it was determined most likely cardioembolic since is affecting both sides and failure with aspirin and Persantine. Ischemic stroke heparin protocol initiated. Careful review secondary to patient history of GI bleed 11/20, thought to be emanating from hemorrhoid ,however due to poor suboptimal prep, they unable to have optimal visualization per Dr. Jones. 11/24: Late entry note. Patient seen and evaluated 614. No acute events overnight. Patient continues on heparin infusion no active signs of bleeding. PTT within therapeutic range. The patient is less responsive this a.m., spontaneous eye opening, not following my commands. Not moving his extremities spontaneously for me as previously performed yesterday. tube feeds reinitiated. Chest x-ray showed further improvement in aeration of lungs the patient continues on FiO2 of 0.35. Plan for CPAP trials today. 11/25: No acute events overnight. Neurological status unchanged. Spontaneous eye opening patient continues not following any commands. Dr. Geronimo at bedside evaluating patient, no change. Patient tolerated CPAP trials approximately 12 hours yesterday. Tolerating tube feeds. Chest x-ray remains unchanged from yesterday. Hemoccult stool negative. Heparin infusion continued. family at bedside. 11/26: Late entry note. Patient seen at 1240pm. Last night the patient was noted to be continuously hyperglycemic. Levemir added to medication regimen 10 mg/day hemoglobin dropped 2 g/dL in 2 days hemoglobin now 7.7, patient to be transfused 1 unit packed red blood. No obvious signs of bleeding Hemoccult was negative. Patient continues on heparin infusion, patient may require tracheostomy and PEG in the near future . Plan to transition to p.o. anticoagulation post procedures. Neurologically the status is unchanged the patient is opens eyes spontaneously no movement of extremities upon my evaluation. Continued CPAP trials currently greater than 6 hours. 11/27: At 1000am, the patient was noted to have melena, approximated at 150 cc per RN evaluation. Heparin infusion discontinued/placed on hold at 10 AM. Stool for Hemoccult blood sent, GI was contacted and informed of the above events. Stat CT of the abdomen and pelvis with p.o. contrast ordered, results pending. Patient previously had been tolerating trickle feeds at 10 cc an hour with no residuals, after initiation of Reglan 5 mg every 8 hours yesterday. Neurologically the patient status is unchanged. Patient does have spontaneous eye opening but does not follow my commands and does not move extremities. Patient's daughter is at bedside, discussed the above events at which she was present for, she is requesting a repeat colonoscopy. I informed her that a CT of the abdomen and pelvis will be obtained, serial hemoglobin will be evaluated and if needed transfusion will be provided and gastroenterology has been contacted and will determine further management if an invasive procedure is required. Hemoglobin continues to be monitored serially, results pending for 10 AM. The patient received 1 unit packed red blood cells, and current hemoglobin trended overnight 8.9 to 8.2 this a.m., posttransfusion. 11/28: hgb continues to decline despite being off heparin. no additional GI interventions are available at this time. clearly the patient has failed anticoagulation with 2 life-threatening bleeding episodes. Although it is clear he may have additional strokes off anticoagulation, we have clear evidence that we are hurting his overall clinical care with his anticoagulation. I explained this at length to the daughter and medical decision maker. however, she insists that she would rather see him of bleeding rather than have any more strokes , and insists that "we can always keep giving him blood". I explained that blood is not without risk, and there is significant risk to anticoagulation, but she is insistent that he be given anticoagulation to prevent further strokes and she has weighed the risks and benefits after having full informed consent, insists upon us restarting the heparin drip. At her insistence, I have restarted it. In addition, I have counseled her that I do not think he will survive this hospitalization, and he will require tracheostomy for further aggressive care. She states that we are not at "day 14" on the vent, and it is not time for a tracheostomy yet. This is a second intubation and we are certainly at risk for complications from endotracheal intubation, and tracheostomy would be the most appropriate next step for this patient, but the family is refusing until WednesdayDecember 01. 11/29 Patient remains intubated, on no sedation. Afebrile. 11/30 No events overnight. Patient tolerated CPAP for most of day yesterday. Remains on Heparin drip. 12/01 Patient remains intubated tolerated CPAP for several hrs yesterday. s/p CT guided right thoracentesis with removal 500ml pleural fluid. On Heparin drip 12/02 No events overnight. Heparin drip stopped this morning for trach and PEG placement today. Afebrile. 12/03 Patient s/p trach and PEG tube placement yesterday. Had bleeding from around trach and PEG tube insertion sites Heparin drip held last night. s/p transfusion 1u PRBC yesterday Hgb 8.0 this morning. Afebrile. On no sedation. 12/04: Continues to have bruising from PEG tube insertion site. Trach site appears to have stopped. Hemoglobin 7 the same receiving 1 unit FFP and 1 PRBCs. Tube feeds of been resumed. On no sedation. 12/05: Afebrile. No further bleeding noted from the tracheostomy site. Overnight reported by the RN that the PEG tube site continues to bleed Surgicel was placed around the opening, small amount of bleeding still noted. Patient hemoglobin remained 7 patient to be transfused 1 unit PRBC's fibrinogen level pending INR within normal limits. 12/06 Patient s/p transfusion 2u PRBC yesterday Hgb 9.5 this morning from 7.2 last night. No bleeding from trach site however patient still having rectal bleeding. 12/07 No events overnight. On ventilator via trach Hgb 9.8 this morning for colonoscopy today. 12/08: seen and examined around 06:30am. no significant change in mental status. hgb 8.9 this AM. remains on heparin drip at [facility]. 12/09: no improvements or changes. very deconditioned. garcia has remained in without clear indication. had 1 episode of urinary retention, but this is a clear source of infection and an additional serious infection would certainly be life-threatening. 12/10 Patient is now on TP's with 28% FIO2, Afebrile. On Heparin drip. 12/11: remains on t-piece x > 48h. no change in neuro exam. remains on heparin drip with stable hgb 7.8. 12/12: asked to see patient again today by the hospitalist service for change in condition. I have evaluated the patient and he does not clinically appear any different than yesterday. HR actually lower than yesterday. bladder scan suggestive of 600cc retention. patient has had urinary retention before, although has also had multiple hospital acquired urinary tract infections. risk/ benefit at this time would be in favor of serial q6h straight catheterizations. remains hemodynamically stable. some emesis today and evidence of ileus. 12/31 Reconsult for resp distress Patient is 77 yo with chronic resp failure, trach/PEG tube placement, CVA transferred to [facility] for resp distress trach changes to #6 and patient was placed on mechanical ventilation. CXR showed increasing consolidation patient was given Lasix prior to arrival to [facility]. 01/01 Patient is on ventilator via trach. Afebrile. 01/02 No events overnight. On no drips, Afebrile, CPAP 15/5 with 35% FIO2 overnight. 01/03 Remained on TP breathing comfortably. CXR shows bilateral effusions. Will get CT chest. Give single dose of lasix. ID consulted and following, no fever in 24 hours 01/04: Remains unresponsive, fever trending down. Sputum culture now growing Klebsiella and ESBL E. coli. Urine culture and wound culture also growing ESBL E. coli. Chest tube placed on the right side yesterday with 1.35 L output since placement. Urine output excellent with single dose of Lasix 2.5 L in 24 hours. No fever in 24 hours. Repeat 40 mg IV Lasix [facility] RECONSULT NOTE 02/08/18: Mr. Glynn is a 77-year-old man who is known to our service. In short, he was initially admitted with possible optic neuritis versus temporal arteritis in September. Care complicated by an STEMI, multiple infections with healthcare associated pneumonia UTIs. During hospitalization he also received TPA for Stroke, MRI of the brain performed on 12/24/2017, showed infarction involving the left corpus callosum and splenium of the corpus callosum. The patient had undergone tracheostomy placement. And since last month had been on hospitalist service and off ventilator. He is currently receiving Levaquin for stenotrophomonas infection, Diflucan for candidemia. Apparently patient was noted to aspirate earlier this a.m. At 7250 AM patient was found unresponsive pulseless rhythm asystole and CPR was started. Total 3 amp of epinephrine given. Patient had a cuff less trach with evidence of aspiration, large amount of tube feeds aspirated from tracheostomy tube. This was exchanged for a 8.0 Shiley tracheostomy cuffed. With improved bag and mask ventilation and after 3 epinephrine, 1 amp of calcium, 1 amp of bicarb, patient regained ROSC SUBJ 02/09/18: Remains very critical not on any sedation he is unresponsive eyes are spontaneously open but no tracking. Very slight withdrawal to pain on the upper extremities. CT of the head unremarkable. Currently borderline hypotensive off pressors. Received 2 units of PRBC for hemoglobin 6.6 yesterday. Prognosis remained poor. Neurology consulted per family request 02/10/18: Remains critical with no improvement in neuro status or clinical status. Eyes are spontaneously open but no response to threat no tracking. Neurology consulted MRI and EEG pending at this time. Currently remains on Levophed at 1 mcg/min. Chest x-ray with bilateral infiltrates sputum culture growing GNR. Na 155. Free water flushes and half-normal saline rate increased. 02/11: Remains unresponsive off all sedation. Osmolality slowly returning to baseline. Antibiotics appropriate for organism. Tube feeds tolerated at 50 mL' s per hour. Unable to wean from mechanical ventilation. 02/12: Osmolality slowly returning to baseline. Tube feeds now tolerated at 60 mL's per hour. Unable to wean from mechanical ventilation due to fatigue. 02/13: Placed on spontaneous breathing trial this morning but required 18 of pressure support to maintain an adequate minute volume. Will work from this point and attempt to wean pressure support over the next many days. Will place back on mechanical rate nightly. Anticoagulation is been particularly cumbersome and made more difficult by Diflucan. Will restart Coumadin again this morning as INR is declined to 2.2 02/14: Remains very weak. Essentially unresponsive. Tolerates brief periods of spontaneous breathing trial blood pressure support must be markedly elevated to the 1820 range. State of hydration gradually improving as osmolality declines and serum creatinine improves. Will continue hypotonic solutions IV. 02/15: Remains unresponsive. Continues to fail spontaneous breathing trials due to lack of respiratory effort. Suffers from tachypnea with an efficient small tidal volumes regardless of the amount of pressure support. 02/16: Onset of copious watery diarrhea is contaminating buttock wounds. We will insert a dignity shield system for fecal management. Remains unresponsive to noxious stimulation. He does have a weak cough reflex. 02/17: Patient is weaker on attempts at spontaneous breathing trials today. Patient remains unresponsive. Only reaction is a weak cough to suctioning. 02/18: Patient continues to do poorly on attempts at spontaneous breathing trials. Urine output is improved with diuresis, will follow renal function closely. 02/19: Albumin 1.1, further evidence that the patient is deteriorating. Responds to diuretics but prerenal azotemia quickly develops. 02/20: Ongoing attempts to remove excess soft tissue and pleural water consistently resolved and renal impairment. Unfortunately this is largely caused by his poor nutritional status. Despite sufficient nutritional support he continues to deteriorate clinically. 02/21: no improvements in function. still grossly anasarca. Cr worsening again. hypernatremia persists. 02/22: no changes. intermittently tachycardic. still gently diuresing. outlook poor. 02/23: no improvements. anemic this AM requiring transfusion of prbc. Family refuses to allow the holding of anticoagulation given multiple recent CVA, so anticoagulation will continue despite anemia. remains hypernatremic despite therapy. 02/24: no changes or improvements. HR came down with transfusion of prbc yesterday. 02/25: hgb stable. Cr worsens slightly. metabolic derangements have improved somewhat and sodium improving. no improvement in neurologic status. poor prognosis. 02/26, 02/27: Remains on mech ventilation via trach. No improvement in neuro status. 02/28: A.m. laboratories pending. Afebrile. No new changes overnight. 03/01: Remains on mechanical ventilation via tracheostomy. Neurologically unchanged. 03/02: Remains on mechanical ventilation via tracheostomy. Remains encephalopathic with no change in neurologic status. 03/03, 03/04, 03/05, 03/06: Remains encephalopathic on mechanical ventilation via tracheostomy. No change in neuro status. 03/07: Remains encephalopathic on mechanical ventilation via tracheostomy. Daily CPAP trials ongoing. No significant improvement in neurologic status over the last week. 03/09: No improvement in neurologic function. Glucose intolerance persists despite manipulation of insulin regimen. Recent sputum results noted and addressed by the infectious disease service. 03/10: No change. Tolerating tube feeds. Performs poorly on SBTs. 03/11: Potassium 6.5 with hemolysis, will redraw. No improvement. 03/12: He is a little bit stronger on spontaneous breathing trial today. Tolerating 10 of pressure support with acceptable tidal volumes in the 400+ range. Persistent moderate hyperkalemia still unexplained. Will add low-dose diuretic and review acid-base balance. Retention of potassium is coinciding with glucose intolerance. Adjusting insulin regimen daily. Objective Vital Signs / I&O: Vital Signs 03/11/18 08:00 03/11/18 10:00 03/11/18 11:53 Temperature 98.5 F Pulse Rate 93 H 91 H Respiratory Rate 24 28 H Blood Pressure 108/59 L Pulse Oximetry 97 96 03/11/18 12:00 03/11/18 14:00 03/11/18 15:00 Temperature 97.7 F Pulse Rate 87 87 89 Respiratory Rate 26 H 27 H Blood Pressure 103/57 L Pulse Oximetry 96 03/11/18 15:47 03/11/18 16:00 03/11/18 18:00 Temperature 98.0 F Pulse Rate 90 90 Respiratory Rate 27 H 23 Blood Pressure 113/60 Pulse Oximetry 99 96 03/11/18 20:00 03/11/18 20:16 03/11/18 22:00 Temperature 97.9 F Pulse Rate 92 H 94 H 88 Respiratory Rate 23 19 Blood Pressure 119/55 L Pulse Oximetry 98 97 03/12/18 00:00 03/12/18 00:50 03/12/18 02:00 Temperature 97.9 F Pulse Rate 84 83 Respiratory Rate 18 20 Blood Pressure 100/56 L Pulse Oximetry 100 100 03/12/18 04:00 03/12/18 04:10 03/12/18 06:00 Temperature 98.4 F Pulse Rate 90 84 Respiratory Rate 16 21 Blood Pressure 116/62 Pulse Oximetry 99 98 Intake & Output 03/11/18 03/12/18 03/12/18 18:59 06:59 18:59 Intake Total 1321.9375 / 1321.9375 2427.8745 / 2427.8745 525.937 / 525.937 Output Total 675 / 675 600 / 600 Balance 646.9375 / 646.9375 1827.8745 / 1827.8745 525.937 / 525.937 Weight 90.7 kg Intake: IV 525.9375 / 525.9375 1151.8745 / 1151.8745 525.937 / 525.937 Avycaz Inj 1.25 GM In NS Inj 50 100 / 100 ML @ 25 mls/hr IV.SIG Q12HR EDE Rx#:[id number] Bactrim [custom] Inj 415 MG In 525.9375 / 525.9375 1051.8745 / 1051.8745 525.937 / 525.937 D5W Inj 500.0000 ML @ 276.667 mls/hr IV.SIG Q8H EDE Rx#: [id number] Oral 0 / 0 Tube Feeding 736 / 736 756 / 756 Tube Irrigant 60 / 60 120 / 120 Water Bolus Amount 0 / 0 400 / 400 Output: Stool 0 / 0 0 / 0 Urine Amount (Catheter) 675 / 675 600 / 600 Indwelling Urethral Catheter 675 / 675 600 / 600 Other: # Incontinent Voids 0 Date of Last Bowel Movement 03/11/18 03/11/18 # Incontinent Bowel Movements 0 Result Diagrams: 03/11/18 04:42 03/11/18 12:58 Objective Remarks: GENERAL: Patient is 77 yo encephalopathic, unresponsive, remains on the vent. Eyes are closed. SKIN: Warm and dry. Stage IV sacral decubitus, surrounding buttocks resolving excoriation. HEAD: Normocephalic. Tongue moist. EYES: No scleral icterus. No injection. PRABHA. NECK: Cuffed tracheostomy tube in place 6.0. Plentiful secretions persist. CARDIOVASCULAR: normal rate, regular rhythm. S1, S2. No S4. No JVD. RESPIRATORY: Diminished breath sounds in the bases bilaterally. Persistent scattered rhonchi. GASTROINTESTINAL: Abdomen soft. PEG tube site clean and dry. Bowel sounds active, no guarding. MUSCULOSKELETAL: No cyanosis. Generalized edema persists. NEURO: Eyes are closed. Unresponsive to stimulation in all 4 limbs. Weak cough reflex. Assessment and Plan - Assessment and Plan Plan: Assessment: Asystole/Cardiac arrest Worsening encephalopathy most likely anoxia contributing Aspiration pneumonia Acute on chronic hypoxemic and hypercapnic resp failure Combined shock, septic and cardiogenic Healthcare associated pneumonia, stenotrophomonas now with multidrug resistant Klebsiella pneumonia Candidemia -treated UTI with ESBL E. coli CVA Anemia requiring transfusion Sacral decubitus ulcer s/p NSTEMI Optic neuritis Status post tracheostomy and PEG tube placement Acute protein calorie malnutrition- severe Acute kidney injury Hypokalemia Plan: Impression: Neuro -Acute worsening of encephalopathy secondary to systolic cardiac arrest, anoxia -CT head 02/08/[address] Pereira reconsulted per family request -History of L ENID infarct. Status post systemic TPA on November 09 -Neuropsychology has followed. Continue with methylphenidate 10 mg twice daily -Optic neuritis. Status post treatment with IV hydrocortisone -Remains unresponsive. CV: -Asystole/cardiac arrest seems secondary to hypoxia and hypercapnia from severe aspiration -s/p IV fluid normal saline 2 L bolus, 2U PRBC -half-normal saline discontinued 02/28 along with furosemide 40 mg twice daily. Continue free water flushes at 300 mL every 6 -Continue warfarin currently 1 mg daily as per pharmacy's recommendation -Echo 10/19: LV systolic function is moderately reduced, EF 40-45%. Cardiology has followed Dr. Hernández -Doxazosin 2mg daily and carvedilol 3.125mg BID on hold due to hypotension. On atorvastatin 80mg qhs -As needed Midrin 10 every 8 as needed Pulm: -Cardiac arrest seems to be secondary to respiratory arrest. Evidence of aspiration at the time of arrest -Cuff less tracheostomy tube removed and new Shiley 8 cuffed tracheostomy placed 02/08/18 -PRVC/AC ventilation. Albuterol/ipratropium every 6 hours while awake scheduled and albuterol aerosols every 2 hours as needed -Failed CPAP due to apnea -ICU vent bundle. Pulmonary toilet, trach care. GI -Currently tube feeds at goal with vital 1.5 at 60 cc an hour. continue as tolerated. -On famotidine 10mg BID -Free water flushes 300 mils every 6 hours -Having BMs on polyethylene glycol 17 g daily Continue with hydrocortisone suppository twice daily [id number] 1% per rectal every 6 hours ordered Renal/: -Monitor renal function, electrolytes replacement per protocol. ID -Patient was receiving levofloxacin for stenotrophomonas, fluconazole for candidemia -Added meropenem 02/08/18 for previous ESBL E. coli HCAP. Currently on ceftazidime 1.25 g every 12 hours -Previous UTI with ESBL E. coli, Previous healthcare associated pneumonia with Klebsiella and ESBL E. coli -ID Dr. Jalloh following Skin -Sacral wound-Seen by Plastic surgery; debridement declined per patient's family -Wound care is following- apply dressings per wound management recommendations Heme: -Status post 2 units PRBC on 02/08/2018 now s/p additional 2 units prbc on 02/23 for recurrent anemia. -Previous GI bleed; Status post EGD colonoscopy. GI has signed off, patient with healed rectal ulcers and hemorrhoids. Endo -On SSI with R insulin. Insulin detemir increased to 40 units twice daily for glycemic control. Increase today 03/11 GI prophylaxis- on famotidine DVT prophylaxis- On warfarin and adjusted per pharmacy consultation. Overall impression: Patient remains chronically ill after aspiration with hypoxemic and hypercarbic respiratory failure leading to asystolic cardiac arrest. Ten minutes of CPR with return of spontaneous circulation after aggressive resuscitation following CPR, patient remains hypoxemic and encephalopathy. Remains unresponsive, weak respiratory effort is ineffective during spontaneous trials, unable to begin weaning from ventilator. Prognosis remains poor. Situation has been discussed in detail with the family on multiple occasions. Daughter appears to be most vociferous spokesman at this time. Modest improvement in spontaneous respiratory effort over the past 48 hours. We will continue long-term vent weaning trials.
[2018-03-12] MEDS: Famotidine 20 MG Tablet PO SCH (08:21)
[2018-03-12] MEDS: Insulin Detemir Inj 1,000 UNIT/10 ML Vial SQ SCH (08:21)
[2018-03-12 11:23] VITALS: RESP 19
[2018-03-12] MEDS ORDERED: Atropine Inj 1 MG/10 ML Syringe ONE (13:53)
--- NOTE | 2018-03-12 14:37 | P.DS ---
Date of admission: 10/15/17 00:48 Primary care physician: No Primary Care Physician Attending physician on discharge: Cornelio Holt Brief History from admission: 10/14/2017 - 11/09/2017: This is a 77-year-old male with a PMH of HTN and DM who was referred to the ER by his Digital Research Analyst for evaluation of temporal arteritis or pseudotumor. History obtained from pt's sons at bedside and records. Per sons pt was seen at [facility] for c/o right eye pain and vision loss. Right eye 20/150, Left eye 20/80 per records. No h/o similar symptoms. Denies recent injury/trauma, no reported headache, jaw pain or motor weakness. On arrival, BP 202/88, HR 79, O2 sat 98% RA, Afebrile. CBC unremarkable. Creatinine 2.31, no previous labs for comparison. BS 233. CRP 0.51. INR 1.1. ESR 12. MRA Head with diffuse severe atherosclerotic disease including multiple areas of luminal narrowing most pronounced involving right M1 segment. Orbit MRI with edema involving right optic nerve suggesting optic neuritis. S/p Solu-Medrol 250mg IV in ER. 77-year-old male who initially presented with vision changes and concern for optic neuritis versus temporal arteritis. His initial presentation was on 10/14. His hospital course has been complicated by an NSTEMI with troponins which peaked at 10, ESBL E. coli urinary tract infection, rectal bleeding suspected from bleeding hemorrhoids, acute anemia secondary to blood loss with hemoglobin started around 14 and is trended down to 9.7 this morning. On his initial MRA he was found to have significant atherosclerotic cerebrovascular disease in all vascular territories. Today, he had an acute mental status change and was obtunded. Rapid response and stroke alert was called. His initial NIH stroke scale was 22. Dr. goldstein had conversations with Dr. Ulloa and neurology as well as Dr. sierra with gastroenterology. GI feels comfortable with giving thrombolytics and neurology feels strongly that this patient would benefit from systemic IV TPA therapy. I evaluated the patient on arrival to the intensive care unit. The patient is arousable, but very somnolent. He is Faroese speaking, and it is very difficult to ascertain whether or not he can follow commands. He does move all extremities spontaneously, although it appears that his left side is weaker than his right. He has noted facial droop. CT head is negative for acute hemorrhage. CTA head neck is significant for the same multivessel cerebrovascular disease that was present on admission. Given the high-risk nature of the stroke as well as his acute anemia this hospitalization, in preparation for giving emergent IV systemic TPA, I placed an arterial line as well as a large-bore peripheral IV so that we could draw serial labs, monitor his hemoglobin, and give blood products if necessary. I also had an additional discussion with the family where I reconfirmed that their goals were aggressive and they fully understood the significant risk of life-threatening hemorrhage associated with systemic TPA in a patient with new anemia and suspected GI bleeding. The family expressed understanding of his condition and understanding of the heightened risk of life-threatening bleeding, but still urged that we needed to get TPA. Immediately after giving IV TPA, patient had a tonic clonic seizure (witnessed on EEG) and became obtunded with acute hypoxic and hypercarbic respiratory failure and was emergently intubated (see separate procedure note for details). 11/10: remains intubated. encephalopathy persists. hgb stable s/p TPA. ~350cc bloody OG tube output, but this is slowing down. 11/11: more awake. on SBT. follows commands. 11/12: remains extubated. off vasopressors. no changes in mental status. 11/18/17 CCM Reconsult Note Patient was transferred to ICU today after a Halicat was called for AMS, hypoxia , high fever. Apparently patient was lethargic since a.m. in the last hour had been unresponsive and hence Halicat was called. Patient had a fever of 101.4 in a.m., T-max is 101.6. I immediately evaluated the patient in the ICU. Patient is completely unresponsive, oxygen saturation 87% on 4 L nasal cannula. Hypopneic. No response to deep pain. Patient was confirmed to be a full code and I proceeded with endotracheal intubation place him on mechanical ventilation as patient was not protecting airway. More history was obtained from discussion with ID Dr. Jalloh. She indicated patient had been increasingly lethargic with fever and also had urinary retention.She has discontinued Ertapenem, and started on meropenem, vancomycin and micafungin. Cultures have been sent and are pending now. Source of sepsis appears to be aspiration pneumonia versus UTI. Repeat UA and panculture pending at this time. Patient was borderline hypotensive prior to intubation and I have started on Levophed to avoid hypotension post intubation. Receiving 1 L normal saline bolus now, give additional fluid bolus if patient requires continued Levophed will place central line 11/19: remains intubated. holding aggrenox for possible thoracentesis today, but family hesitant to consent with concerns over bleeding risk. Cr remains elevated. discussion with Dr. Bernal, unlikely to benefit currently from draining effusion, so at his recommendation, will proceed with attempted weaning from mechanical ventilation and treat effusion conservatively. 11/20: Overnight /early this a.m. ,the patient was noted to have large amount of rectal bleeding. Aggrenox held since 11/18, 2/2 reintubation. Type and screen ordered. Serial H&H currently be performed. Hemodynamically stable. GI has been reconsulted. Protonix previously given PRN, will schedule BID. Patient was reintubated emergently 11/18, plan for continue CPAP trials. Tube feedings until evaluation by GI. ASA placed on hold , in the setting of GI bleeding. 11/21: EGD and colonoscopy performed yesterday. Patient was noted to be constipated ,disimpacted per GI. Patient noted to have hemorrhoids which was clipped. No further bleeding throughout the night. Chest x-ray showed improvement. CPAP trials initiated this a.m.. ASA 81 mg resumed. 11/22: Patient tolerated CPAP trials approximately 13 hours yesterday. Initiation of tube feeds per GI yesterday, no residuals. This am , family concerned patient not responsive. CT brain , ammonia level and EEG pending. Neurology has been reconsulted. Upon my entering the room, this afternoon, the patient was awake, tracking and squeezing my hand upon commands, with right hand. The patient received 1 u PRBC for Hgb 7.2. Post transfusion CBC pending. Plan for quantification of pleural fluid for possible thoracentesis in a.m.. 11/23: No acute events overnight. Patient remains off all sedation. Noted spontaneous eye opening, tracking following commands squeezing hands right greater than left. Neurology following plan for MRI this a.m., repeat EEG pending. Hemoglobin stable this a.m.. Chest x-ray slight improvement, plan for quantification via ultrasound of pleural effusions for possible thoracentesis today. 3 failed attempts at CPAP trials yesterday. 1548-MRI resulted findings consistent of small areas of acute cortical infarct, new since 11/09/2017. I contacted neurology, Dr. Chaves informed of results. After Dr. Palma's review of imaging and records, it was determined most likely cardioembolic since is affecting both sides and failure with aspirin and Persantine. Ischemic stroke heparin protocol initiated. Careful review secondary to patient history of GI bleed 11/20, thought to be emanating from hemorrhoid ,however due to poor suboptimal prep, they unable to have optimal visualization per Dr. Jones. 11/24: Late entry note. Patient seen and evaluated 614. No acute events overnight. Patient continues on heparin infusion no active signs of bleeding. PTT within therapeutic range. The patient is less responsive this a.m., spontaneous eye opening, not following my commands. Not moving his extremities spontaneously for me as previously performed yesterday. tube feeds reinitiated. Chest x-ray showed further improvement in aeration of lungs the patient continues on FiO2 of 0.35. Plan for CPAP trials today. 11/25: No acute events overnight. Neurological status unchanged. Spontaneous eye opening patient continues not following any commands. Dr. Chaves at bedside evaluating patient, no change. Patient tolerated CPAP trials approximately 12 hours yesterday. Tolerating tube feeds. Chest x-ray remains unchanged from yesterday. Hemoccult stool negative. Heparin infusion continued. family at bedside. 11/26: Late entry note. Patient seen at 1240pm. Last night the patient was noted to be continuously hyperglycemic. Levemir added to medication regimen 10 mg/day hemoglobin dropped 2 g/dL in 2 days hemoglobin now 7.7, patient to be transfused 1 unit packed red blood. No obvious signs of bleeding Hemoccult was negative. Patient continues on heparin infusion, patient may require tracheostomy and PEG in the near future . Plan to transition to p.o. anticoagulation post procedures. Neurologically the status is unchanged the patient is opens eyes spontaneously no movement of extremities upon my evaluation. Continued CPAP trials currently greater than 6 hours. 11/27: At 1000am, the patient was noted to have melena, approximated at 150 cc per RN evaluation. Heparin infusion discontinued/placed on hold at 10 AM. Stool for Hemoccult blood sent, GI was contacted and informed of the above events. Stat CT of the abdomen and pelvis with p.o. contrast ordered, results pending. Patient previously had been tolerating trickle feeds at 10 cc an hour with no residuals, after initiation of Reglan 5 mg every 8 hours yesterday. Neurologically the patient status is unchanged. Patient does have spontaneous eye opening but does not follow my commands and does not move extremities. Patient's daughter is at bedside, discussed the above events at which she was present for, she is requesting a repeat colonoscopy. I informed her that a CT of the abdomen and pelvis will be obtained, serial hemoglobin will be evaluated and if needed transfusion will be provided and gastroenterology has been contacted and will determine further management if an invasive procedure is required. Hemoglobin continues to be monitored serially, results pending for 10 AM. The patient received 1 unit packed red blood cells, and current hemoglobin trended overnight 8.9 to 8.2 this a.m., posttransfusion. 11/28: hgb continues to decline despite being off heparin. no additional GI interventions are available at this time. clearly the patient has failed anticoagulation with 2 life-threatening bleeding episodes. Although it is clear he may have additional strokes off anticoagulation, we have clear evidence that we are hurting his overall clinical care with his anticoagulation. I explained this at length to the daughter and medical decision maker. however, she insists that she would rather see him of bleeding rather than have any more strokes , and insists that "we can always keep giving him blood". I explained that blood is not without risk, and there is significant risk to anticoagulation, but she is insistent that he be given anticoagulation to prevent further strokes and she has weighed the risks and benefits after having full informed consent, insists upon us restarting the heparin drip. At her insistence, I have restarted it. In addition, I have counseled her that I do not think he will survive this hospitalization, and he will require tracheostomy for further aggressive care. She states that we are not at "day 14" on the vent, and it is not time for a tracheostomy yet. This is a second intubation and we are certainly at risk for complications from endotracheal intubation, and tracheostomy would be the most appropriate next step for this patient, but the family is refusing until WednesdayDecember 01. 11/29 Patient remains intubated, on no sedation. Afebrile. 11/30 No events overnight. Patient tolerated CPAP for most of day yesterday. Remains on Heparin drip. 12/01 Patient remains intubated tolerated CPAP for several hrs yesterday. s/p CT guided right thoracentesis with removal 500ml pleural fluid. On Heparin drip 12/02 No events overnight. Heparin drip stopped this morning for trach and PEG placement today. Afebrile. 12/03 Patient s/p trach and PEG tube placement yesterday. Had bleeding from around trach and PEG tube insertion sites Heparin drip held last night. s/p transfusion 1u PRBC yesterday Hgb 8.0 this morning. Afebrile. On no sedation. 12/04: Continues to have bruising from PEG tube insertion site. Trach site appears to have stopped. Hemoglobin 7 the same receiving 1 unit FFP and 1 PRBCs. Tube feeds of been resumed. On no sedation. 12/05: Afebrile. No further bleeding noted from the tracheostomy site. Overnight reported by the RN that the PEG tube site continues to bleed Surgicel was placed around the opening, small amount of bleeding still noted. Patient hemoglobin remained 7 patient to be transfused 1 unit PRBC's fibrinogen level pending INR within normal limits. 12/06 Patient s/p transfusion 2u PRBC yesterday Hgb 9.5 this morning from 7.2 last night. No bleeding from trach site however patient still having rectal bleeding. 12/07 No events overnight. On ventilator via trach Hgb 9.8 this morning for colonoscopy today. 12/08: seen and examined around 06:30am. no significant change in mental status. hgb 8.9 this AM. remains on heparin drip at family's insistence. 12/09: no improvements or changes. very deconditioned. garcia has remained in without clear indication. had 1 episode of urinary retention, but this is a clear source of infection and an additional serious infection would certainly be life-threatening. 12/10 Patient is now on TP's with 28% FIO2, Afebrile. On Heparin drip. 12/11: remains on t-piece x > 48h. no change in neuro exam. remains on heparin drip with stable hgb 7.8. 12/12: asked to see patient again today by the hospitalist service for change in condition. I have evaluated the patient and he does not clinically appear any different than yesterday. HR actually lower than yesterday. bladder scan suggestive of 600cc retention. patient has had urinary retention before, although has also had multiple hospital acquired urinary tract infections. risk/ benefit at this time would be in favor of serial q6h straight catheterizations. remains hemodynamically stable. some emesis today and evidence of ileus. 12/31 Reconsult for resp distress Patient is 77 yo with chronic resp failure, trach/PEG tube placement, CVA transferred to [facility] for resp distress trach changes to #6 and patient was placed on mechanical ventilation. CXR showed increasing consolidation patient was given Lasix prior to arrival to [facility]. 01/01 Patient is on ventilator via trach. Afebrile. 01/02 No events overnight. On no drips, Afebrile, CPAP 15/5 with 35% FIO2 overnight. 01/03 Remained on TP breathing comfortably. CXR shows bilateral effusions. Will get CT chest. Give single dose of lasix. ID consulted and following, no fever in 24 hours 01/04: Remains unresponsive, fever trending down. Sputum culture now growing Klebsiella and ESBL E. coli. Urine culture and wound culture also growing ESBL E. coli. Chest tube placed on the right side yesterday with 1.35 L output since placement. Urine output excellent with single dose of Lasix 2.5 L in 24 hours. No fever in 24 hours. Repeat 40 mg IV Lasix. 01/05/2018 - 02/08/2018: Mr. Glynn is a 77-year-old man who is known to our service. In short, he was initially admitted with possible optic neuritis versus temporal arteritis in September. Care complicated by an STEMI, multiple infections with healthcare associated pneumonia UTIs. During hospitalization he also received TPA for Stroke, MRI of the brain performed on 12/24/2017, showed infarction involving the left corpus callosum and splenium of the corpus callosum. The patient had undergone tracheostomy placement. And since last month had been on hospitalist service and off ventilator. He is currently receiving Levaquin for stenotrophomonas infection, Diflucan for candidemia. 02/08: Apparently patient was noted to aspirate earlier this a.m. At 7250 AM patient was found unresponsive pulseless rhythm asystole and CPR was started. Total 3 amp of epinephrine given. Patient had a cuff less trach with evidence of aspiration, large amount of tube feeds aspirated from tracheostomy tube. This was exchanged for a 8.0 Shiley tracheostomy cuffed. With improved bag and mask ventilation and after 3 epinephrine, 1 amp of calcium, 1 amp of bicarb, patient regained ROSC 02/09/18: Remains very critical not on any sedation he is unresponsive eyes are spontaneously open but no tracking. Very slight withdrawal to pain on the upper extremities. CT of the head unremarkable. Currently borderline hypotensive off pressors. Received 2 units of PRBC for hemoglobin 6.6 yesterday. Prognosis remained poor. Neurology consulted per family request 02/10/18: Remains critical with no improvement in neuro status or clinical status. Eyes are spontaneously open but no response to threat no tracking. Neurology consulted MRI and EEG pending at this time. Currently remains on Levophed at 1 mcg/min. Chest x-ray with bilateral infiltrates sputum culture growing GNR. Na 155. Free water flushes and half-normal saline rate increased. 02/11: Remains unresponsive off all sedation. Osmolality slowly returning to baseline. Antibiotics appropriate for organism. Tube feeds tolerated at 50 mL' s per hour. Unable to wean from mechanical ventilation. 02/12: Osmolality slowly returning to baseline. Tube feeds now tolerated at 60 mL's per hour. Unable to wean from mechanical ventilation due to fatigue. 02/13: Placed on spontaneous breathing trial this morning but required 18 of pressure support to maintain an adequate minute volume. Will work from this point and attempt to wean pressure support over the next many days. Will place back on mechanical rate nightly. Anticoagulation is been particularly cumbersome and made more difficult by Diflucan. Will restart Coumadin again this morning as INR is declined to 2.2 02/14: Remains very weak. Essentially unresponsive. Tolerates brief periods of spontaneous breathing trial blood pressure support must be markedly elevated to the 1820 range. State of hydration gradually improving as osmolality declines and serum creatinine improves. Will continue hypotonic solutions IV. 02/15: Remains unresponsive. Continues to fail spontaneous breathing trials due to lack of respiratory effort. Suffers from tachypnea with an efficient small tidal volumes regardless of the amount of pressure support. 02/16: Onset of copious watery diarrhea is contaminating buttock wounds. We will insert a dignity shield system for fecal management. Remains unresponsive to noxious stimulation. He does have a weak cough reflex. 02/17: Patient is weaker on attempts at spontaneous breathing trials today. Patient remains unresponsive. Only reaction is a weak cough to suctioning. 02/18: Patient continues to do poorly on attempts at spontaneous breathing trials. Urine output is improved with diuresis, will follow renal function closely. 02/19: Albumin 1.1, further evidence that the patient is deteriorating. Responds to diuretics but prerenal azotemia quickly develops. 02/20: Ongoing attempts to remove excess soft tissue and pleural water consistently resolved and renal impairment. Unfortunately this is largely caused by his poor nutritional status. Despite sufficient nutritional support he continues to deteriorate clinically. 02/21: no improvements in function. still grossly anasarca. Cr worsening again. hypernatremia persists. 02/22: no changes. intermittently tachycardic. still gently diuresing. outlook poor. 02/23: no improvements. anemic this AM requiring transfusion of prbc. Family refuses to allow the holding of anticoagulation given multiple recent CVA, so anticoagulation will continue despite anemia. remains hypernatremic despite therapy. 02/24: no changes or improvements. HR came down with transfusion of prbc yesterday. 02/25: hgb stable. Cr worsens slightly. metabolic derangements have improved somewhat and sodium improving. no improvement in neurologic status. poor prognosis. 02/26, 02/27: Remains on mech ventilation via trach. No improvement in neuro status. 02/28: A.m. laboratories pending. Afebrile. No new changes overnight. 03/01: Remains on mechanical ventilation via tracheostomy. Neurologically unchanged. 03/02: Remains on mechanical ventilation via tracheostomy. Remains encephalopathic with no change in neurologic status. 03/03, 03/04, 03/05, 03/06: Remains encephalopathic on mechanical ventilation via tracheostomy. No change in neuro status. 03/07: Remains encephalopathic on mechanical ventilation via tracheostomy. Daily CPAP trials ongoing. No significant improvement in neurologic status over the last week. 03/09: No improvement in neurologic function. Glucose intolerance persists despite manipulation of insulin regimen. Recent sputum results noted and addressed by the infectious disease service. 03/10: No change. Tolerating tube feeds. Performs poorly on SBTs. 03/11: Potassium 6.5 with hemolysis, will redraw. No improvement. 03/12: He is a little bit stronger on spontaneous breathing trial today. Tolerating 10 of pressure support with acceptable tidal volumes in the 400+ range. Persistent moderate hyperkalemia still unexplained. Will add low-dose diuretic and review acid-base balance. Retention of potassium is coinciding with glucose intolerance. Adjusting insulin regimen daily. Patient update on day of discharge: 03/12/18: At approximately 1355 hours the patient developed bradycardia which was initially treated with atropine. The patient was on mechanical ventilation at the time with oxygen saturation of 93%. This deteriorated to asystolic cardiac arrest and cardiopulmonary resuscitation was to be. Full ACLS protocol was instituted including bag mask ventilation through his indwelling tracheostomy tube and external cardiac compressions. Please see code sheet for medications. The patient never regained a perfusing rhythm and finally deteriorated into a slow ventricular escape rhythm with no perfusion. After 30 minutes of continuous full ACLS protocol CPR the patient was pronounced at 1425 hrs. of asystolic cardiac standstill. Attempts were made repeatedly during the code to contact the family but to no avail. DS: Diagnosis - Discharge Diagnosis (1) Cardiopulmonary arrest Status: Acute (2) Respiratory failure with hypoxia and hypercapnia Status: Resolved (3) Anoxic encephalopathy Status: Acute (4) Aspiration pneumonia Status: Acute (5) CVA (cerebral vascular accident) Status: Acute (6) Cardiac arrest Status: Acute (7) Renal insufficiency Status: Acute (8) Ulcer of sacral region, unstageable Status: Acute (9) NSTEMI (non-ST elevated myocardial infarction) Status: Resolved (10) Optic neuritis Status: Resolved DS: Summary Hospital Course: This is a 77-year-old male who initially presented with vision changes and concern for optic neuritis versus temporal arteritis. His initial presentation was on 10/14. His hospital course has been complicated by an NSTEMI with troponins which peaked at 10, ESBL E. coli urinary tract infection, rectal bleeding suspected from bleeding hemorrhoids, acute anemia secondary to blood loss with hemoglobin started around 14 and is trended down to 9.7 this morning. On his initial MRA he was found to have significant atherosclerotic cerebrovascular disease in all vascular territories. Today, he had an acute mental status change and was obtunded. Rapid response and stroke alert was called. His initial NIH stroke scale was 22. Dr. goldstein had conversations with Dr. Ulloa and neurology as well as Dr. sierra with gastroenterology. GI feels comfortable with giving thrombolytics and neurology feels strongly that this patient would benefit from systemic IV TPA therapy. I evaluated the patient on arrival to the intensive care unit. The patient is arousable, but very somnolent. He is Faroese speaking, and it is very difficult to ascertain whether or not he can follow commands. He does move all extremities spontaneously, although it appears that his left side is weaker than his right. He has noted facial droop. CT head is negative for acute hemorrhage. CTA head neck is significant for the same multivessel cerebrovascular disease that was present on admission. Given the high-risk nature of the stroke as well as his acute anemia this hospitalization, in preparation for giving emergent IV systemic TPA, I placed an arterial line as well as a large-bore peripheral IV so that we could draw serial labs, monitor his hemoglobin, and give blood products if necessary. I also had an additional discussion with the family where I reconfirmed that their goals were aggressive and they fully understood the significant risk of life-threatening hemorrhage associated with systemic TPA in a patient with new anemia and suspected GI bleeding. The family expressed understanding of his condition and understanding of the heightened risk of life-threatening bleeding, but still urged that we needed to get TPA. Immediately after giving IV TPA, patient had a tonic clonic seizure (witnessed on EEG) and became obtunded with acute hypoxic and hypercarbic respiratory failure and was emergently intubated (see separate procedure note for details). 11/10: remains intubated. encephalopathy persists. hgb stable s/p TPA. ~350cc bloody OG tube output, but this is slowing down. 11/11: more awake. on SBT. follows commands. 11/12: remains extubated. off vasopressors. no changes in mental status. 11/18/17 CCM Reconsult Note Patient was transferred to ICU today after a Halicat was called for AMS, hypoxia , high fever. Apparently patient was lethargic since a.m. in the last hour had been unresponsive and hence Halicat was called. Patient had a fever of 101.4 in a.m., T-max is 101.6. I immediately evaluated the patient in the ICU. Patient is completely unresponsive, oxygen saturation 87% on 4 L nasal cannula. Hypopneic. No response to deep pain. Patient was confirmed to be a full code and I proceeded with endotracheal intubation place him on mechanical ventilation as patient was not protecting airway. More history was obtained from discussion with ID Dr. Jalloh. She indicated patient had been increasingly lethargic with fever and also had urinary retention.She has discontinued Ertapenem, and started on meropenem, vancomycin and micafungin. Cultures have been sent and are pending now. Source of sepsis appears to be aspiration pneumonia versus UTI. Repeat UA and panculture pending at this time. Patient was borderline hypotensive prior to intubation and I have started on Levophed to avoid hypotension post intubation. Receiving 1 L normal saline bolus now, give additional fluid bolus if patient requires continued Levophed will place central line 11/19: remains intubated. holding aggrenox for possible thoracentesis today, but family hesitant to consent with concerns over bleeding risk. Cr remains elevated. discussion with Dr. Bernal, unlikely to benefit currently from draining effusion, so at his recommendation, will proceed with attempted weaning from mechanical ventilation and treat effusion conservatively. 11/20: Overnight /early this a.m. ,the patient was noted to have large amount of rectal bleeding. Aggrenox held since 11/18, 2/2 reintubation. Type and screen ordered. Serial H&H currently be performed. Hemodynamically stable. GI has been reconsulted. Protonix previously given PRN, will schedule BID. Patient was reintubated emergently 11/18, plan for continue CPAP trials. Tube feedings until evaluation by GI. ASA placed on hold , in the setting of GI bleeding. 11/21: EGD and colonoscopy performed yesterday. Patient was noted to be constipated ,disimpacted per GI. Patient noted to have hemorrhoids which was clipped. No further bleeding throughout the night. Chest x-ray showed improvement. CPAP trials initiated this a.m.. ASA 81 mg resumed. 11/22: Patient tolerated CPAP trials approximately 13 hours yesterday. Initiation of tube feeds per GI yesterday, no residuals. This am , family concerned patient not responsive. CT brain , ammonia level and EEG pending. Neurology has been reconsulted. Upon my entering the room, this afternoon, the patient was awake, tracking and squeezing my hand upon commands, with right hand. The patient received 1 u PRBC for Hgb 7.2. Post transfusion CBC pending. Plan for quantification of pleural fluid for possible thoracentesis in a.m.. 11/23: No acute events overnight. Patient remains off all sedation. Noted spontaneous eye opening, tracking following commands squeezing hands right greater than left. Neurology following plan for MRI this a.m., repeat EEG pending. Hemoglobin stable this a.m.. Chest x-ray slight improvement, plan for quantification via ultrasound of pleural effusions for possible thoracentesis today. 3 failed attempts at CPAP trials yesterday. 1548-MRI resulted findings consistent of small areas of acute cortical infarct, new since 11/09/2017. I contacted neurology, Dr. Chaves informed of results. After Dr. Palma's review of imaging and records, it was determined most likely cardioembolic since is affecting both sides and failure with aspirin and Persantine. Ischemic stroke heparin protocol initiated. Careful review secondary to patient history of GI bleed 11/20, thought to be emanating from hemorrhoid ,however due to poor suboptimal prep, they unable to have optimal visualization per Dr. Jones. 11/24: Late entry note. Patient seen and evaluated 614. No acute events overnight. Patient continues on heparin infusion no active signs of bleeding. PTT within therapeutic range. The patient is less responsive this a.m., spontaneous eye opening, not following my commands. Not moving his extremities spontaneously for me as previously performed yesterday. tube feeds reinitiated. Chest x-ray showed further improvement in aeration of lungs the patient continues on FiO2 of 0.35. Plan for CPAP trials today. 11/25: No acute events overnight. Neurological status unchanged. Spontaneous eye opening patient continues not following any commands. Dr. Chaves at bedside evaluating patient, no change. Patient tolerated CPAP trials approximately 12 hours yesterday. Tolerating tube feeds. Chest x-ray remains unchanged from yesterday. Hemoccult stool negative. Heparin infusion continued. family at bedside. 11/26: Late entry note. Patient seen at 1240pm. Last night the patient was noted to be continuously hyperglycemic. Levemir added to medication regimen 10 mg/day hemoglobin dropped 2 g/dL in 2 days hemoglobin now 7.7, patient to be transfused 1 unit packed red blood. No obvious signs of bleeding Hemoccult was negative. Patient continues on heparin infusion, patient may require tracheostomy and PEG in the near future . Plan to transition to p.o. anticoagulation post procedures. Neurologically the status is unchanged the patient is opens eyes spontaneously no movement of extremities upon my evaluation. Continued CPAP trials currently greater than 6 hours. 11/27: At 1000am, the patient was noted to have melena, approximated at 150 cc per RN evaluation. Heparin infusion discontinued/placed on hold at 10 AM. Stool for Hemoccult blood sent, GI was contacted and informed of the above events. Stat CT of the abdomen and pelvis with p.o. contrast ordered, results pending. Patient previously had been tolerating trickle feeds at 10 cc an hour with no residuals, after initiation of Reglan 5 mg every 8 hours yesterday. Neurologically the patient status is unchanged. Patient does have spontaneous eye opening but does not follow my commands and does not move extremities. Patient's daughter is at bedside, discussed the above events at which she was present for, she is requesting a repeat colonoscopy. I informed her that a CT of the abdomen and pelvis will be obtained, serial hemoglobin will be evaluated and if needed transfusion will be provided and gastroenterology has been contacted and will determine further management if an invasive procedure is required. Hemoglobin continues to be monitored serially, results pending for 10 AM. The patient received 1 unit packed red blood cells, and current hemoglobin trended overnight 8.9 to 8.2 this a.m., posttransfusion. 11/28: hgb continues to decline despite being off heparin. no additional GI interventions are available at this time. clearly the patient has failed anticoagulation with 2 life-threatening bleeding episodes. Although it is clear he may have additional strokes off anticoagulation, we have clear evidence that we are hurting his overall clinical care with his anticoagulation. I explained this at length to the daughter and medical decision maker. however, she insists that she would rather see him of bleeding rather than have any more strokes , and insists that "we can always keep giving him blood". I explained that blood is not without risk, and there is significant risk to anticoagulation, but she is insistent that he be given anticoagulation to prevent further strokes and she has weighed the risks and benefits after having full informed consent, insists upon us restarting the heparin drip. At her insistence, I have restarted it. In addition, I have counseled her that I do not think he will survive this hospitalization, and he will require tracheostomy for further aggressive care. She states that we are not at "day 14" on the vent, and it is not time for a tracheostomy yet. This is a second intubation and we are certainly at risk for complications from endotracheal intubation, and tracheostomy would be the most appropriate next step for this patient, but the family is refusing until WednesdayDecember 01. 11/29 Patient remains intubated, on no sedation. Afebrile. 11/30 No events overnight. Patient tolerated CPAP for most of day yesterday. Remains on Heparin drip. 12/01 Patient remains intubated tolerated CPAP for several hrs yesterday. s/p CT guided right thoracentesis with removal 500ml pleural fluid. On Heparin drip 12/02 No events overnight. Heparin drip stopped this morning for trach and PEG placement today. Afebrile. 12/03 Patient s/p trach and PEG tube placement yesterday. Had bleeding from around trach and PEG tube insertion sites Heparin drip held last night. s/p transfusion 1u PRBC yesterday Hgb 8.0 this morning. Afebrile. On no sedation. 12/04: Continues to have bruising from PEG tube insertion site. Trach site appears to have stopped. Hemoglobin 7 the same receiving 1 unit FFP and 1 PRBCs. Tube feeds of been resumed. On no sedation. 12/05: Afebrile. No further bleeding noted from the tracheostomy site. Overnight reported by the RN that the PEG tube site continues to bleed Surgicel was placed around the opening, small amount of bleeding still noted. Patient hemoglobin remained 7 patient to be transfused 1 unit PRBC's fibrinogen level pending INR within normal limits. 12/06 Patient s/p transfusion 2u PRBC yesterday Hgb 9.5 this morning from 7.2 last night. No bleeding from trach site however patient still having rectal bleeding. 12/07 No events overnight. On ventilator via trach Hgb 9.8 this morning for colonoscopy today. 12/08: seen and examined around 06:30am. no significant change in mental status. hgb 8.9 this AM. remains on heparin drip at family's insistence. 12/09: no improvements or changes. very deconditioned. garcia has remained in without clear indication. had 1 episode of urinary retention, but this is a clear source of infection and an additional serious infection would certainly be life-threatening. 12/10 Patient is now on TP's with 28% FIO2, Afebrile. On Heparin drip. 12/11: remains on t-piece x > 48h. no change in neuro exam. remains on heparin drip with stable hgb 7.8. 12/12: asked to see patient again today by the hospitalist service for change in condition. I have evaluated the patient and he does not clinically appear any different than yesterday. HR actually lower than yesterday. bladder scan suggestive of 600cc retention. patient has had urinary retention before, although has also had multiple hospital acquired urinary tract infections. risk/ benefit at this time would be in favor of serial q6h straight catheterizations. remains hemodynamically stable. some emesis today and evidence of ileus. 12/31 Reconsult for resp distress Patient is 77 yo with chronic resp failure, trach/PEG tube placement, CVA transferred to [facility] for resp distress trach changes to #6 and patient was placed on mechanical ventilation. CXR showed increasing consolidation patient was given Lasix prior to arrival to [facility]. 01/01 Patient is on ventilator via trach. Afebrile. 01/02 No events overnight. On no drips, Afebrile, CPAP 15/5 with 35% FIO2 overnight. 01/03 Remained on TP breathing comfortably. CXR shows bilateral effusions. Will get CT chest. Give single dose of lasix. ID consulted and following, no fever in 24 hours 01/04: Remains unresponsive, fever trending down. Sputum culture now growing Klebsiella and ESBL E. coli. Urine culture and wound culture also growing ESBL E. coli. Chest tube placed on the right side yesterday with 1.35 L output since placement. Urine output excellent with single dose of Lasix 2.5 L in 24 hours. No fever in 24 hours. Repeat 40 mg IV Lasix [facility] RECONSULT NOTE 02/08/18: Mr. Glynn is a 77-year-old man who is known to our service. In short, he was initially admitted with possible optic neuritis versus temporal arteritis in September. Care complicated by an STEMI, multiple infections with healthcare associated pneumonia UTIs. During hospitalization he also received TPA for Stroke, MRI of the brain performed on 12/24/2017, showed infarction involving the left corpus callosum and splenium of the corpus callosum. The patient had undergone tracheostomy placement. And since last month had been on hospitalist service and off ventilator. He is currently receiving Levaquin for stenotrophomonas infection, Diflucan for candidemia. Apparently patient was noted to aspirate earlier this a.m. At 7250 AM patient was found unresponsive pulseless rhythm asystole and CPR was started. Total 3 amp of epinephrine given. Patient had a cuff less trach with evidence of aspiration, large amount of tube feeds aspirated from tracheostomy tube. This was exchanged for a 8.0 Shiley tracheostomy cuffed. With improved bag and mask ventilation and after 3 epinephrine, 1 amp of calcium, 1 amp of bicarb, patient regained ROSC SUBJ 02/09/18: Remains very critical not on any sedation he is unresponsive eyes are spontaneously open but no tracking. Very slight withdrawal to pain on the upper extremities. CT of the head unremarkable. Currently borderline hypotensive off pressors. Received 2 units of PRBC for hemoglobin 6.6 yesterday. Prognosis remained poor. Neurology consulted per family request 02/10/18: Remains critical with no improvement in neuro status or clinical status. Eyes are spontaneously open but no response to threat no tracking. Neurology consulted MRI and EEG pending at this time. Currently remains on Levophed at 1 mcg/min. Chest x-ray with bilateral infiltrates sputum culture growing GNR. Na 155. Free water flushes and half-normal saline rate increased. 02/11: Remains unresponsive off all sedation. Osmolality slowly returning to baseline. Antibiotics appropriate for organism. Tube feeds tolerated at 50 mL' s per hour. Unable to wean from mechanical ventilation. 02/12: Osmolality slowly returning to baseline. Tube feeds now tolerated at 60 mL's per hour. Unable to wean from mechanical ventilation due to fatigue. 02/13: Placed on spontaneous breathing trial this morning but required 18 of pressure support to maintain an adequate minute volume. Will work from this point and attempt to wean pressure support over the next many days. Will place back on mechanical rate nightly. Anticoagulation is been particularly cumbersome and made more difficult by Diflucan. Will restart Coumadin again this morning as INR is declined to 2.2 02/14: Remains very weak. Essentially unresponsive. Tolerates brief periods of spontaneous breathing trial blood pressure support must be markedly elevated to the 1820 range. State of hydration gradually improving as osmolality declines and serum creatinine improves. Will continue hypotonic solutions IV. 02/15: Remains unresponsive. Continues to fail spontaneous breathing trials due to lack of respiratory effort. Suffers from tachypnea with an efficient small tidal volumes regardless of the amount of pressure support. 02/16: Onset of copious watery diarrhea is contaminating buttock wounds. We will insert a dignity shield system for fecal management. Remains unresponsive to noxious stimulation. He does have a weak cough reflex. 02/17: Patient is weaker on attempts at spontaneous breathing trials today. Patient remains unresponsive. Only reaction is a weak cough to suctioning. 02/18: Patient continues to do poorly on attempts at spontaneous breathing trials. Urine output is improved with diuresis, will follow renal function closely. 02/19: Albumin 1.1, further evidence that the patient is deteriorating. Responds to diuretics but prerenal azotemia quickly develops. 02/20: Ongoing attempts to remove excess soft tissue and pleural water consistently resolved and renal impairment. Unfortunately this is largely caused by his poor nutritional status. Despite sufficient nutritional support he continues to deteriorate clinically. 02/21: no improvements in function. still grossly anasarca. Cr worsening again. hypernatremia persists. 02/22: no changes. intermittently tachycardic. still gently diuresing. outlook poor. 02/23: no improvements. anemic this AM requiring transfusion of prbc. Family refuses to allow the holding of anticoagulation given multiple recent CVA, so anticoagulation will continue despite anemia. remains hypernatremic despite therapy. 02/24: no changes or improvements. HR came down with transfusion of prbc yesterday. 02/25: hgb stable. Cr worsens slightly. metabolic derangements have improved somewhat and sodium improving. no improvement in neurologic status. poor prognosis. 02/26, 02/27: Remains on mech ventilation via trach. No improvement in neuro status. 02/28: A.m. laboratories pending. Afebrile. No new changes overnight. 03/01: Remains on mechanical ventilation via tracheostomy. Neurologically unchanged. 03/02: Remains on mechanical ventilation via tracheostomy. Remains encephalopathic with no change in neurologic status. 03/03, 03/04, 03/05, 03/06: Remains encephalopathic on mechanical ventilation via tracheostomy. No change in neuro status. 03/07: Remains encephalopathic on mechanical ventilation via tracheostomy. Daily CPAP trials ongoing. No significant improvement in neurologic status over the last week. 03/09: No improvement in neurologic function. Glucose intolerance persists despite manipulation of insulin regimen. Recent sputum results noted and addressed by the infectious disease service. 03/10: No change. Tolerating tube feeds. Performs poorly on SBTs. 03/11: Potassium 6.5 with hemolysis, will redraw. No improvement. 03/12: He is a little bit stronger on spontaneous breathing trial today. Tolerating 10 of pressure support with acceptable tidal volumes in the 400+ range. Persistent moderate hyperkalemia still unexplained. Will add low-dose diuretic and review acid-base balance. Retention of potassium is coinciding with glucose intolerance. Adjusting insulin regimen daily. - Time Spent with Patient Total time spent providing and/or coordinating discharge services 100 minutes. Greater than 30 minutes Exam Vital signs: Vital Signs 03/11/18 15:00 03/11/18 15:47 03/11/18 16:00 Temperature 98.0 F Pulse Rate 89 90 Respiratory Rate 27 H 27 H 23 Blood Pressure 113/60 Pulse Oximetry 99 96 03/11/18 18:00 03/11/18 20:00 03/11/18 20:16 Temperature 97.9 F Pulse Rate 90 92 H 94 H Respiratory Rate 23 19 Blood Pressure 119/55 L Pulse Oximetry 98 97 03/11/18 22:00 03/12/18 00:00 03/12/18 00:50 Temperature 97.9 F Pulse Rate 88 84 Respiratory Rate 18 20 Blood Pressure 100/56 L Pulse Oximetry 100 100 03/12/18 02:00 03/12/18 04:00 03/12/18 04:10 Temperature 98.4 F Pulse Rate 83 90 Respiratory Rate 16 21 Blood Pressure 116/62 Pulse Oximetry 99 98 03/12/18 06:00 03/12/18 08:00 03/12/18 11:20 Temperature Pulse Rate 84 Respiratory Rate 20 19 Blood Pressure Pulse Oximetry 94 L 97 Intake & Output 03/11/18 03/12/18 03/12/18 18:59 06:59 18:59 Intake Total 1321.9375 / 1321.9375 2427.8745 / 2427.8745 525.937 / 525.937 Output Total 675 / 675 600 / 600 Balance 646.9375 / 646.9375 1827.8745 / 1827.8745 525.937 / 525.937 Weight 90.7 kg Intake: IV 525.9375 / 525.9375 1151.8745 / 1151.8745 525.937 / 525.937 Avycaz Inj 1.25 GM In NS Inj 50 100 / 100 ML @ 25 mls/hr IV.SIG Q12HR EDE Rx#:[id number] Bactrim [custom] Inj 415 MG In 525.9375 / 525.9375 1051.8745 / 1051.8745 525.937 / 525.937 D5W Inj 500.0000 ML @ 276.667 mls/hr IV.SIG Q8H EDE Rx#: [id number] Oral 0 / 0 Tube Feeding 736 / 736 756 / 756 Tube Irrigant 60 / 60 120 / 120 Water Bolus Amount 0 / 0 400 / 400 Output: Stool 0 / 0 0 / 0 Urine Amount (Catheter) 675 / 675 600 / 600 Indwelling Urethral Catheter 675 / 675 600 / 600 Other: # Incontinent Voids 0 Date of Last Bowel Movement 03/11/18 03/11/18 # Incontinent Bowel Movements 0 Narrative: . Results Procedures completed during hospitalization: Intubation and mechanical ventilation Percutaneous tracheostomy CPR Pending studies at discharge: None Labs on day of discharge: Labs from last 24 hours 03/12/18 03/12/18 03/12/18 05:18 04:30 01:17 PT 22.4 H INR 2.2 POC Glucose 296 H 253 H 03/11/18 17:40 PT INR POC Glucose 241 H - Impressions ITS Impressions Chest CT 01/03/18 00:00 CONCLUSION: 1. Large bilateral pleural effusions occupying more than half of the right and left hemithorax. Abdomen/Pelvis CT 01/13/18 00:00 CONCLUSION: 1. Small bilateral pleural effusions and basilar infiltrates with bilateral chest tubes in place. 2. No evidence of ascites or bowel dilatation. Abdomen/Bladder Ultrasound 01/15/18 00:00 CONCLUSION: 1. Negative renal sonogram. Abdomen X-Ray 02/08/18 00:00 CONCLUSION: 1. Nonobstructive bowel gas pattern. 2. Gastrostomy tube in the left upper abdominal quadrant Head CT 02/08/18 00:00 CONCLUSION: 1. Stable prominent senescent changes with mild to moderate periventricular ischemic white matter demyelination. 2. No acute intracranial abnormality.. Head MRI 02/10/18 00:00 CONCLUSION: 1. No acute findings. Extensive cortical volume loss. Moderate white matter ischemic changes. No recent infarct. Chest X-Ray 03/05/18 00:00 CONCLUSION: 1. Persistent left lower lobe consolidation. 2. Increasing size left pleural effusion and decreasing size right pleural effusion. Discharge Plan - Discharge Disposition Patient Disposition: 20 - Discharge Details Date/Time: 03/12/18 14:25 - Physicians Team Primary Care Provider: Primary Care Namita Smyth Attending Provider: Angel Dangelo Other Providers: Elpidio Su MD ; Christy Jalloh MD ; Terry Badillo MD ; Clark Cruz MD ; Antolin Dolan MD ; Jimmy Ulloa MD ; Kenny Espinoza MD ; Jennifer Swanson MD ; Jason Groves MD ; Abundio Chaves MD ; David Hernández MD ; Marc Fallon MD ; Mitra Veliz MD ; Oc Nunez MD ; Dennis Mathews DO ; Dolores Bernal MD ; Rayo Argueta MD ; Junior Richards, PhD ; [facility],[place] ; [facility],Agency ; Mariza Estrada MD ; Marcello Pereira MD, PhD ; Emi Rushing MD ; Monique Diaz MD ; Celine Box MD ; Meagan Salas MD ; Riddhi Abdalla MD - Rxs /Orders / Referrals /Forms Prescriptions: Discontinued Actrapid 80 Sub-Q BID loperamide 2 mg Capsule 2 mg PO DIRECTED PRN (Reason: Diarrhea) nepafenac 0.1 % Drops,Suspension 1 drp ophthalmic (eye) tobramycin-dexamethasone [TobraDex] 0.3-0.1 % Drops,Suspension 1 drp OPHTHALMIC (EYE) Referrals: Primary Care Namita Smyth [Primary Care Provider] - See Instructions
[2018-03-12 14:39] VITALS: PULSE 78
[2018-03-12 15:06] VITALS: BP 102/56; TEMP 98; O2SAT 96
[2018-03-12] MEDS ORDERED: Lidocaine/D5W 2000 mg/500 mL 2,000 MG/500 ML BAG IV.SIG ONE (18:59)
== END 2018-03-12 19:00 | disposition expired ==
LOC: N04 10-15 00:48 → HIMC 12-31 08:41 → N05 01-12 15:48 → N03 02-08 07:50
PROVIDERS: ADMIT Internal Medicine; ATTEND Internal Medicine